=== PATIENT | male | born 1955 | race Caucasian/White ===

== ENCOUNTER 2022-11-21 12:07 | Emergency (ER) | payer MEDICARE, MEDICAID, SELFPAY ==
--- NOTE | ~2022-11-21 | CT_ITS ---
EXAMINATION: CT cervical spine wo con DATE: 11/21/2022 12:57 INDICATION: Fall. Head injury. Neck pain. TECHNIQUE: Computed tomography (CT) of the cervical spine was performed without intravenous contrast. Automated exposure control and iterative reconstruction technique were employed. Exam dose: 485.90 mGy-cm total exam DLP. COMPARISON: None FINDINGS: Mild reversal of cervical curvature which may be due to muscle spasm or positioning. C1 and C2 are normally aligned and the odontoid process is intact. No fracture or dislocation or lock ed facet. Moderate degenerative disc disease at C4-5 and to a greater extent C5-6-6 7.. IMPRESSION: Mild reversal of cervical curvature which may be due to muscle spasm or positioning No fracture or dislocation or locked facet Mild to moderate cervical spondylosis Reviewed, dictated and finalized at [facility]. Reviewed, dictated and finalized at [facility]. IMPRESSION: Mild reversal of cervical curvature which may be due to muscle spa sm or positioning No fracture or dislocation or locked facet Mild to moderate cervical spondylosis
--- NOTE | ~2022-11-21 | CT_ITS ---
EXAMINATION: CT brain wo con DATE: 11/21/2022 12:57 INDICATION: Head injury. Fall. Neck pain. TECHNIQUE: Computed tomography (CT) of the head was performed without intravenous contrast. The mA wa s adjusted according to patient size. Iterative reconstruction technique was employed. Exam dose: 60 5.33 mGy-cm total exam DLP. COMPARISON: None FINDINGS: There is bilateral carotid siphon internal carotid artery calcification. There is extensive diminished attenuation of the right cerebral hemisphere including right frontal, p arietal and temporal as well as occipital lobes, involving most of the right middle cerebral artery t erritory and some anterior cerebral artery territory. Findings are most consistent with subacute or o ld infarct. No intracranial mass lesion or hemorrhage, midline shift or mass effect. No subdural or epidural tracy ty. Persistent metopic suture. No skull fracture or bone destruction is detected. Included paranasal sinu ses and mastoid air cells are normally developed and aerated. IMPRESSION: Chronic extensive cerebrovascular infarct of right middle and anterior cerebral artery t erritories No acute intracranial finding or skull fracture Reviewed, dictated and finalized at [facility]. Reviewed, dictated and finalized at [facility]. IMPRESSION: Chronic extensive cerebrovascular infarct of right middle and ante rior cerebral artery territories No acute intracranial finding or skull fracture
[2022-11-21 12:09] VITALS: BP 145/78; PULSE 76; RESP 18; TEMP 36.6; O2SAT 97
--- NOTE | 2022-11-21 12:37 | ED.GENADULT ---
HPI - General Adult General Chief complaint: Fall Stated complaint: fall/ no injuries History of Present Illness HPI narrative: 67-year-old male presented to the emergency department for evaluation after having a fall from bed and head injury. Patient reports he did strike his right arm but denies any significant injury. Patient does have pain in his hips that he states is chronic and unchanged from baseline. Patient states he did strike his head but is unsure if he had any loss of consciousness. Related Data Allergies Allergy/AdvReac Type Severity Reaction Status Date / Time hydralazine AdvReac Vomiting Verified 11/21/22 12:37 lisinopril AdvReac Rash Verified 11/21/22 12:38 metformin AdvReac Diarrhea Verified 11/21/22 12:38 pioglitazone AdvReac Nausea Verified 11/21/22 12:39 simvastatin AdvReac Rash Verified 11/21/22 12:39 Review of Systems Review of Systems: All systems reviewed & are unremarkable except as noted in HPI and below Exam Narrative: APPEARANCE: Well appearing, no pain, no distress, well-nourished. HEAD: normocephalic, atraumatic. EYES: PERRLA/EOMI, conjunctivae clear. NOSE: Normal no drainage EARS:TMS clear with good light reflex. THROAT: Pharynx clear, no exudate. NECK: Supple. No adenopathy, no masses. RESPIRATORY: Airway patent, respirations nonlabored. Clear to auscultation bilaterally, no rales, rhonchi, wheezing. CARDIOVASCULAR: Regular rate and rhythm without murmurs rubs or gallops. ABDOMINAL: Soft, nontender, nondistended, normal bowel sounds MUSCULOSKELETAL: Moves all extremities. Strength/ROM intact, No edema, No calf tenderness. NEURO: Alert. Cranial nerves II through XII intact. Grossly intact SKIN: Warm, dry. Normal Color Course Course Emergency Course: 67-year-old male presented to ED from local [facility] for evaluation after having a ground-level fall. Patient had a negative head and cervical spine CT. Patient was complaining of chronic pain in his lower back and was provided medications for pain control. Patient was transferred back to the senior care facility. Patient was updated on results of his imaging. Vital Signs Vital signs: Vital Signs Temperature 97.9 F 11/21/22 12:09 Pulse Rate 76 11/21/22 12:09 Respiratory Rate 18 11/21/22 12:09 Blood Pressure 145/78 H 11/21/22 12:09 Pulse Oximetry 97 11/21/22 12:09 Oxygen Delivery Room Air 11/21/22 12:09 Temperature 97.9 F 11/21/22 12:09 Pulse Rate 76 11/21/22 12:09 Respiratory Rate 18 11/21/22 12:09 Blood Pressure 145/78 H 11/21/22 12:09 Pulse Oximetry 97 11/21/22 12:09 Oxygen Delivery Room Air 11/21/22 12:09 Medical Decision Making Differential Diagnosis Differential Diagnosis: Intracranial injury, cervical spine fracture Vital Signs Vital Signs: Vital Signs Temperature 97.9 F 11/21/22 12:09 Pulse Rate 76 11/21/22 12:09 Respiratory Rate 18 11/21/22 12:09 Blood Pressure 145/78 H 11/21/22 12:09 Pulse Oximetry 97 11/21/22 12:09 Oxygen Delivery Room Air 11/21/22 12:09 Temperature 97.9 F 11/21/22 12:09 Pulse Rate 76 11/21/22 12:09 Respiratory Rate 18 11/21/22 12:09 Blood Pressure 145/78 H 11/21/22 12:09 Pulse Oximetry 97 11/21/22 12:09 Oxygen Delivery Room Air 11/21/22 12:09 Imaging Data Radiologist's impression: Impressions Head CT 11/21/22 13:27 IMPRESSION: 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
[2022-11-21] MEDS: HYDROcodone/acetaminophen (*CRX) 5-325 MG TABLET 1 TAB PO (12:46)
--- NOTE | 2022-11-21 14:49 | PC.NURSE ---
Report called to [facility] spoke with KEVIN.
== END 2022-11-21 15:05 ==
LOC: ANHED 14:46
PROVIDERS: Emergency Provider Emergency Medicine
DX: S09.90XA Unspecified injury of head, initial encounter (principal); M54.9 Dorsalgia, unspecified; G89.29 Other chronic pain; W06.XXXA Fall from bed, initial encounter
CPT/HCPCS: 70450; 72125; 99284; A9270

== ENCOUNTER 2023-11-07 10:37 | Inpatient (IN) | payer MEDICARE, OTHER, MEDICAID, SELFPAY ==
[2023-11-07] VITALS (34 sets, daily range): BP systolic 136–210; BP diastolic 51–104; PULSE 65–92; RESP 16–29; TEMP 36.3–36.4; O2SAT 90–100; BMI 35.2
--- NOTE | ~2023-11-07 | CT_ITS ---
EXAMINATION: CT abdomen pelvis w con DATE: 11/07/2023 11:54 INDICATION: Abdominal pain and diarrhea TECHNIQUE: Computed tomography (CT) of the abdomen and pelvis was performed with 100 mL Omnipaque-350 intravenous contrast. Automated exposure control and iterative reconstruction technique were employe d. The dose-length product was 1412.07 mGy-cm. COMPARISON: None FINDINGS: Mild elevation the left hemidiaphragm with associated mild left basilar atelectasis. Heart size is no rmal. Atherosclerotic coronary artery calcifications. No pericardial or pleural effusion. A few scatt ered hepatic and splenic calcific lesions consistent with old granulomatous disease. Gallbladder is d istended but without evident wall thickening or pericholecystic inflammatory stranding to more specif ically suggest acute cholecystitis. Pancreas and bilateral adrenal glands are normal. Bilateral nonob structing nephrolithiasis measuring 4 to 5 mm in the right kidney and with larger 8 mm stone at a low er pole calyx of the left kidney. There is severe cortical atrophy at the anterior aspect of the lowe r pole of the right kidney. No ureteral stones or hydronephrosis. Bladder is normal. Postoperative ch balaji of a subtotal proximal colectomy with ileocolic anastomosis in the central abdomen. There is a 3 60 degree turn of the small bowel around its mesentery immediately proximal to the anastomosis. There is dilation of the gas and fluid-filled small bowel proximal to the anastomosis which measures up to 5.5 cm in maximal diameter consistent with at least partial obstruction. There is a large amount of stool in the remaining distal sigmoid colon and rectum. Small amount of retroperitoneal fluid in the presacral space and mild stranding in the perirectal fat suggestive of stercoral colitis. Small amoun t of ascites in the right paracolic gutter. No abscess or free intraperitoneal gas. No pathologically enlarged abdominal or pelvic lymphadenopathy. There is calcified atherosclerosis of the aorta and ma ny of the other arteries. Mild to moderate lower thoracic spondylosis with chronic mild compression f ractures at T10 and T11. IMPRESSION: 1. Small bowel obstruction which appears to result from a 360 degree volvulus of the small bowel at t he proximal margin of an ileocolic anastomosis post prior subtotal proximal colectomy. 2. Prominent stool in the more distal colon with some surrounding inflammatory stranding which can be seen with stercoral colitis. 3. Dilation of the otherwise normal-appearing gallbladder without evident wall thickening or perichol ecystic inflammatory stranding to suggest acute cholecystitis. If there is clinical concern for acute cholecystitis could consider right upper quadrant ultrasound or HIDA scan for further evaluation. 4. Bilateral nonobstructing nephrolithiasis. Reviewed, dictated and finalized at [facility]. IMPRESSION: 1. Small bowel obstruction which appears to result from a 360 degree volvulus o f the small bowel at the proximal margin of an ileocolic anastomosis post prior subtotal proximal colectomy. 2. Prominent stool in the more distal colon with some surrounding inflammatory stranding which can be seen with stercoral colitis. 3. Dilation of the otherwise normal-appearing gallbladder without evident wall thickening or pericholecystic inflammatory stranding to suggest acute cholecyst itis. If there is clinical concern for acute cholecystitis could consider right upper quadrant ultrasound or HIDA scan for further evaluation. 4. Bilateral nonobstructing nephrolithiasis.
--- NOTE | ~2023-11-07 | XR_ITS ---
EXAMINATION: XR sm bowel follow through DATE: 11/08/2023 14:24 INDICATION: Small bowel obstruction. TECHNIQUE: Oral contrast was administered, and a time course of radiographs of the abdomen was obtain ed. Fluoroscopy of the small bowel was not performed. Fluoroscopy exposure time was 0 minutes. The to duncan number of images was 10. COMPARISON: CT abdomen and pelvis 11/07/2023 FINDINGS: The nasogastric tube tip is in the stomach. There are multiple dilated loops of small bowel. There is contrast in the rectum at 1 hour. IMPRESSION: 1. Dilated small bowel, consistent with partial obstruction. Reviewed, dictated and finalized at [facility].
--- NOTE | ~2023-11-07 | XR_ITS ---
EXAMINATION: XR abdomen gastric tube insert DATE: 11/07/2023 14:11 INDICATION: Nasogastric tube placement. TECHNIQUE: An upright view of the abdomen was obtained. COMPARISON: CT abdomen and pelvis 11/07/2023 FINDINGS: The lower abdomen is excluded. There are multiple dilated loops of small bowel. The nasogas tric tube tip is in the stomach. IMPRESSION: 1. Nasogastric tube tip in the stomach. 2. Small bowel obstruction. Reviewed, dictated and finalized at [facility].
--- NOTE | 2023-11-07 10:44 | ED.GENADULT ---
HPI - General Adult General Chief complaint: Nausea/Vomiting/Diarrhea Stated complaint: N/V/D History of Present Illness HPI narrative: 68-year-old male presents to the emergency department from local longterm for evaluation for persistent nausea vomiting and diarrhea. Patient does have prior history of 4 strokes and is at his normal neuro baseline. alf staff stated that there is a [place] virus outbreak at their facility. Patient does complain of nausea vomiting diarrhea but denies any associated abdominal pain. Related Data Allergies Allergy/AdvReac Type Severity Reaction Status Date / Time hydralazine AdvReac Vomiting Verified 11/21/22 12:37 lisinopril AdvReac Rash Verified 11/21/22 12:38 metformin AdvReac Diarrhea Verified 11/21/22 12:38 pioglitazone AdvReac Nausea Verified 11/21/22 12:39 simvastatin AdvReac Rash Verified 11/21/22 12:39 Review of Systems Review of Systems: All systems reviewed & are unremarkable except as noted in HPI and below PMFSH Past Medical History Medical History (Updated 11/07/23 @ 18:21 by Clarence Kidd MD) Benign prostatic hyperplasia Cerebrovascular accident Chronic obstructive pulmonary disease Coronary artery disease Hypertension Obstructive sleep apnea Intolerant of CPAP Tobacco abuse Type 2 diabetes mellitus Surgical History Surgical History (Updated 11/07/23 @ 17:24 by Sofi Rodríguez PA-C) History of cardiac catheterization History of coronary artery stent placement History of partial colectomy Social History Social History (Updated 11/07/23 @ 14:58 by Sofi Rodríguez PA-C) Social History: Surrogate medical decision maker: Clarita Hobbs, mother. Code status: Full code. Exam Narrative: APPEARANCE: Well appearing, no pain, no distress, well-nourished. HEAD: normocephalic, atraumatic. EYES: PERRLA/EOMI, conjunctivae clear. NOSE: Normal no drainage EARS:TMS clear with good light reflex. THROAT: Pharynx clear, no exudate. NECK: Supple. No adenopathy, no masses. RESPIRATORY: Airway patent, respirations nonlabored. Clear to auscultation bilaterally, no rales, rhonchi, wheezing. CARDIOVASCULAR: Regular rate and rhythm without murmurs rubs or gallops. ABDOMINAL: Soft, nontender, nondistended, normal bowel sounds MUSCULOSKELETAL: Moves all extremities. Strength/ROM intact, No edema, No calf tenderness. NEURO: Alert. Cranial nerves II through XII intact. Grossly intact SKIN: Warm, dry. Normal Color Course Course Emergency Course: Patient was admitted with surgery consult Vital Signs Vital signs: Vital Signs Temperature 97.6 F 11/07/23 10:40 Pulse Rate 70 11/07/23 10:40 Respiratory Rate 23 H 11/07/23 10:40 Blood Pressure 210/104 H 11/07/23 10:40 Pulse Oximetry 94 11/07/23 10:40 Oxygen Delivery Room Air 11/07/23 10:40 Temperature 97.6 F 11/07/23 10:40 Pulse Rate 70 11/07/23 15:47 Respiratory Rate 20 11/07/23 15:47 Blood Pressure 157/76 H 11/07/23 15:47 Pulse Oximetry 93 11/07/23 15:47 Oxygen Delivery Room Air 11/07/23 10:40 Medical Decision Making MDM Narrative Medical decision making narrative: 68-year-old male present to the emergency department for evaluation for lower abdominal pain. Patient's CT scan was concerning for a small bowel obstruction with a volvulus of the small bowel. This was associated with site from my previous proximal cholecystectomy it was done about 2 years ago at the [facility]. I discussed the case with the [facility] for transfer to the [facility] and they felt the patient needed to be transferred to a tertiary care center. I discussed the case with the surgeon at the tertiary care center and he stated that our own surgeon here at [facility] should be able take care this this does not require to be transferred. I discussed the case with Dr. Bustos and he will see the patient as consult. Patient [facility] admitted by the hospitalist. Patient was updated on the results of raven
[2023-11-07 10:52] LABS: Basophils Percent Auto 0.1 % (0.2-1.2); Eosinophils Absolute Auto 0.2 K/mm3 (0-0.3); Eosinophils Percent Auto 2.2 % (0-4.4); Hematocrit 41.1 % (42.0-52.0); Hemoglobin 13.4 g/dL (14.0-18.0); Immature Granulocyte Absolute 0.03 K/mm3 (0.00-0.031); Immature Granulocyte Percent A 0.4 % (0-0.5); Lymphocytes Absolute Auto 0.39 K/mm3 (0.9-3.2); Mean Corpuscular HGB Conc 32.6 g/dl (32-36); Mean Corpuscular Hemoglobin 28.9 pg (26-34); Mean Corpuscular Volume 88.8 fl (80-100); Mean Platelet Volume 8.9 fl (7.4-10.4); Monocytes Absolute Auto 0.2 K/mm3 (0.1-0.6); Monocytes Percent Auto 3.1 % (2.6-8.5); Neutrophils Absolute Auto 6.9 K/mm3 (1.3-6.7); Neutrophils Percent Auto 89.2 % (45.5-73.1); Platelet Count Result 155 k/mm3 (150-375); Red Blood Count 4.63 M/mm3 (4.6-6.20); Red Cell Distribution Width 13.5 % (11.5-14.5); White Blood Count 7.8 K/mm3 (4.5-10.0)
[2023-11-07] MEDS: SODIUM CHLORIDE 0.9% IV 1,000 ML 999 ML IV CONT (10:52)
[2023-11-07] MEDS: ONDANSETRON INJ 4 MG/2 ML VIAL IV PUSH (10:52)
[2023-11-07 11:03] LABS: Alanine Aminotransferase 23 U/L (6-50); Albumin Level 4.5 g/dL (3.5-5.1); Alkaline Phosphatase 93 U/L (38-126); Anion Gap 7 mmol/L (4-12); Aspartate Amino Transferase 23 U/L (17-59); Blood Urea Nitrogen 32 mg/dL (9-20); Calcium 9.5 mg/dL (8.4-10.2); Carbon Dioxide 30 mmol/L (22-30); Chloride 103 mmol/L (98-107); Estimated CRCL calculation 62 ml/min; Estimated Glomerular Filt Rate 55; Glucose 162 mg/dL (65-110); Lipase 52 U/L (23-300); Potassium 4.6 mmol/L (3.4-5.0); Sodium 140 mmol/L (137-145)
[2023-11-07 11:54] LABS: Appearance Urine Clear (Clear); Bacteria Urine None Seen /hpf; Bilirubin Urine Negative (Negative); Blood Urine Non-Hemolyzed Trace (Negative); Color Urine Yellow (Yellow); Glucose Urine UA Negative (Negative); Ketones Urine Negative (Negative); Leukocyte Esterase Ur 1+ LEU/UL (Negative); Need Manual Microscopic Reviewed; Nitrate Urine Positive (Negative); Non Pathogenic Casts 0-2; Protein Urine 1+ mg/dL (Negative); Specific Grav Ur 1.016 (1.001-1.035); Squamous Epithelial Cell Urine None Seen /hpf (Few)
[2023-11-07 12:00] LABS: Add Urine Microscopic? YES
--- NOTE | 2023-11-07 12:37 | ECG_ITS ---
Test Date: 2023-11-07 12:46:15 Measurements Intervals [place] Rate: 77 P: 33 NE: 184 QRS: -26 QRSD: 84 T: 95 QT: 353 QTc: 401 Interpretive Statements SINUS RHYTHM POSSIBLE ANTERIOR MYOCARDIAL INFARCTION , OF INDETERMINATE AGE [30 ms Q WAVE IN V3/V4, OR R < 0.2 mV IN V4] No previous ECG available for comparison Electronically Signed On 11-07-2023 16:18:51 CDT by Jasvir Queen M.D.
[2023-11-07 13:27] LABS: Influenza A QL RT-PCR Negative (Negative); Influenza B QL RT-PCR Negative (Negative); RSV RNA, RT-PCR Negative (Negative); SARS-CoV-2 RNA PCR Negative (Negative)
--- NOTE | 2023-11-07 14:54 | PM.IMHP ---
H&P: HPI History of Present Illness Date/Time: 11/07/23 16:00 Chief Complaint: Chest pressure, nausea, vomiting, diarrhea. Narrative: This is a 68-year-old male smoker with history of stroke, coronary artery disease with history of stents, type 2 diabetes mellitus, hypertension, chronic obstructive pulmonary disease, and benign prostatic hyperplasia who presented to the emergency department via EMS from [facility] for evaluation of chest pressure, nausea, vomiting, and diarrhea. The patient provides the following history. His nursing facility has had an outbreak of [place] virus and staff sent him in today for evaluation as he has been complaining of mild abdominal cramping, bloating, nausea, vomiting, and diarrhea. He has had several episodes of nonbloody and nonbilious emesis this morning but that has since resolved. He continues to have too numerous to count episodes of diarrhea. He also reports having an episode nonradiating, mid sternal chest pressure this morning associated with mild sweats. That has since resolved. He denies fever, orthopnea, current chest pain, pleuritic pain, palpitations, hematemesis, melena, and hematochezia. In the ED: He was afebrile on arrival. Initial blood pressure reading was 210/104 however that is likely erroneous as subsequent blood pressures have been ranging between the 130s to 160s systolic. Labs were significant for WBC count of 7.8, hemoglobin 13.4, BUN 32, lactic acid 1.0. Urine is positive for 1+ protein, nitrates, 1+ leukocyte esterase, 3 to 5 RBC, and 11 to 20 WBC. No bacteria were seen on microscopy. CT of the abdomen and pelvis showed small-bowel obstruction which appears resolved from a 360 degree volvulus of the small bowel at the proximal margin of an ileal colic anastomosis, prominent stool in the more distal colon with surrounding inflammatory stranding which can be seen with stercoral colitis, bilateral nonobstructing nephrolithiasis, and dilation of an otherwise normal-appearing gallbladder. Review of Systems Review of Systems: 12 systems were reviewed and are negative except for as per HPI. [facility] Past Medical History Medical History Benign prostatic hyperplasia Cerebrovascular accident Chronic obstructive pulmonary disease Coronary artery disease Hypertension Obstructive sleep apnea Intolerant of CPAP Tobacco abuse Type 2 diabetes mellitus Surgical History Surgical History History of cardiac catheterization History of coronary artery stent placement History of partial colectomy Family History Family History (Updated 11/07/23 @ 21:19 by Sofi Rodríguez PA-C) Other Family history non-contributory Social History Social History (Updated 11/07/23 @ 21:20 by Sofi Rodríguez PA-C) Social History: Surrogate medical decision maker: Clarita Hobbs, mother. Code status: Full code. Smoking status: Current every day smoker Alcohol intake: unknown Substance use: unknown Do You Feel Safe in your Home?: Yes Lack of Transportation: No Lack of Food: Never True Current Housing: I Have Housing Concerned About Future Housing: No Difficulty Paying Gas/Electric Bills: No Difficulty Paying for Meds: No Currently Unemployed: No Education: Decline to Answer Difficulty w/ Childcare or Family Care: No Additional living arrangements comments: Resident at [facility]. 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 Spiritual care concerns: No Meds Home Medications and Allergies Home Medications Medication Instructions Recorded Confirmed Type Lactobacillus acidophilus 2,000 mmu cells PO BID 11/07/23 11/07/23 History acetaminophen 325 mg tablet 650 mg PO Q8H PRN Pain, Mild 11/07/23 11/07/23 History albuterol sulfate 90 mcg/actuation 2 puff inhalation Q4H PRN Wheezing
[2023-11-07] MEDS: metroNIDAZOLE 500 MG/ISO 100ML 500 MG/100 ML BAG 100 MG IVPB (15:08)
--- NOTE | 2023-11-07 15:26 | PC.NURSE ---
Pt had large BM- diarrhea.
--- NOTE | 2023-11-07 16:15 | ADMGEN ---
This patient, Brent Higginbotham, was admitted to Medical Room 347-. Patient/family oriented to hospital policies and general routines including ID bracelet, bed and alarms, visiting hours, pain management, procedures, bathroom and other care routines, personal items, smoking policy, room service/diet, and visiting hours. Information on how to activate the Rapid Response Team has been discussed. Patient/Family are encouraged to report perceived risks to care and to ask questions if they do not understand what they are told or what they should do.
--- NOTE | 2023-11-07 17:22 | ECG_ITS ---
Test Date: 2023-11-07 17:34:56 Measurements Intervals [place] Rate: 67 P: 7 ID: 194 QRS: -23 QRSD: 98 T: 110 QT: 363 QTc: 384 Interpretive Statements SINUS RHYTHM POSSIBLE ANTERIOR MYOCARDIAL INFARCTION , OF INDETERMINATE AGE ST-T WAVE ABNORMALITY IN HIGH LATERAL LEADS- CONSIDER ISCHEMIA BASELINE ARTIFACT- I, II, III, AVR, AVL, AVF ABNORMAL ECG Compared to ECG 11/07/2023 12:46:15 No significant changes Electronically Signed On 11-08-2023 06:01:51 CDT by Christofer Montiel D.O.
[2023-11-07] MEDS: SODIUM CHLORIDE 0.9% IV 1,000 ML 125 ML IV CONT (18:01)
[2023-11-07 18:50] LABS: Troponin I 0.017 ng/mL (0.000-0.034)
[2023-11-07 21:35] LABS: Troponin I 0.019 ng/mL (0.000-0.034)
[2023-11-07] MEDS: PIPERACILLN/TAZ 3.375GM/NS50ML 3.375 GM/50 ML BAG IVPB (21:57)
[2023-11-07 22:36] LABS: Hemoglobin A1C 6.5 % (<5.7)
[2023-11-07 23:31] LABS: Glucose Point of Care 117 mg/dl (65-105)
[2023-11-08] VITALS (10 sets, daily range): BP systolic 147–165; BP diastolic 62–74; PULSE 55–62; RESP 16–20; TEMP 36.6–36.8; O2SAT 86–94
--- NOTE | 2023-11-08 | ECHO_ITS ---
Patient Info Name: Brent Higginbotham Age: 68 years : 1955 Gender: Male Ht: 70 in Wt: 245 lbs BSA: 2.38 m2 HR: 62 bpm BP: 147 / 51 mmHg Technical Quality: Fair Exam Date: 11/08/2023 11:01 AM Exam Location: Echo Lab Patient Status: Inpatient Admit Date: 11/07/2023 Staff Ordering Physician: Sfoi Rodríguez PA-C Fox Raiser: Savannah Melissa RDCS Attending Provider: Tiffanie Green APRN Referring Physician: Anne LEONARD; Exam Type: CA echo dop color flow w con Study Info Indications - Chest pressure I25.110 - Atherosclerotic heart disease of [place] coronary artery with unstable angina pectoris Complete two-dimensional, color flow and Doppler transthoracic echocardiogram is performed with contrast to opacify the left ventricle and to improve the deliniation of the left ventricle endocardial borders. Contrast/Agitated Saline Contrast/Ag. Saline: Definity Amount: 3.00 ml IV Access Condition: patent with no signs of infiltration Summary 1. Definity contrast administered improved wall motion interpretation. 2. Left ventricular chamber dimension is normal. 3. Left ventricular systolic function is normal, estimated at 60-65%. 4. There is mild concentric increased left ventricular wall thickness. 5. The left ventricular diastolic function is grade I diastolic dysfunction. 6. E/e' 7 is not elevated. Left Ventricle E/e' 7 is not elevated. Definity contrast administered improved wall motion interpretation. Left ventricular chamber dimension is normal. Left ventricular systolic function is normal, estimated at 60-65%. There is mild concentric increased left ventricular wall thickness. The left ventricular diastolic function is grade I diastolic dysfunction. Right Ventricle Right ventricular systolic function is normal and with normal TAPSE 2.3 cm. Right ventricular chamber dimension is normal. Left Atria Left atrial chamber dimension is normal. Right Atria Right atrial chamber dimension is normal. Aortic Valve The aortic valve is trileaflet. There is no aortic valve stenosis. There is no aortic valve regurgitation. Pulmonic Valve There is no pulmonic regurgitation. Mitral Valve There is no mitral valve stenosis. There is no mitral valve regurgitation. Tricuspid Valve There is no tricuspid valve regurgitation. Pericardium/Pleural There is no pericardial effusion. Inferior Vena Cava Normal inferior vena cava with >50% collapse upon inspiration consistent with normal right atrial pressure, 5 mmHg. Aorta The aortic root size at the sinus of Valsalva is normal. Left Ventricular Outflow Tract Name Value Normal LVOT 2D LVOT Diameter 2.13 cm LVOT Doppler LVOT Peak Gradient 4 mmHg LVOT Mean Gradient 2 mmHg LVOT VTI 19.36 cm LVOT VTI/AV VTI Ratio 0.78 LVOT Stroke Volume 69.26 ml LVOT CO 3.51 l/min LVOT CI 1.47 L/min/m2 Pulmonic Valve Name
[2023-11-08 03:06] LABS: Toxigenic C. Diff NEGATIVE (NEGATIVE)
[2023-11-08] MEDS: PIPERACILLN/TAZ 3.375GM/NS50ML 3.375 GM/50 ML BAG IVPB ×4 (03:19→21:06)
[2023-11-08] MEDS: SODIUM CHLORIDE 0.9% IV 1,000 ML 125 ML IV CONT (04:17)
[2023-11-08 05:24] LABS: Hemoglobin 12.3 g/dL (14.0-18.0); Mean Corpuscular HGB Conc 32.4 g/dl (32-36); Mean Corpuscular Volume 89.6 fl (80-100); Mean Platelet Volume 8.7 fl (7.4-10.4); Platelet Count Result 140 k/mm3 (150-375); Red Blood Count 4.24 M/mm3 (4.6-6.20); Red Cell Distribution Width 13.7 % (11.5-14.5); White Blood Count 5.6 K/mm3 (4.5-10.0)
[2023-11-08 05:39] LABS: Anion Gap 6 mmol/L (4-12); Blood Urea Nitrogen 31 mg/dL (9-20); Calcium 9.2 mg/dL (8.4-10.2); Carbon Dioxide 35 mmol/L (22-30); Chloride 102 mmol/L (98-107); Estimated CRCL calculation 54 ml/min; Estimated Glomerular Filt Rate 47; Glucose 124 mg/dL (65-110); Magnesium 1.6 mg/dL (1.6-2.3); Potassium 4.3 mmol/L (3.4-5.0); Sodium 143 mmol/L (137-145)
[2023-11-08 06:20] LABS: Glucose Point of Care 118 mg/dl (65-105)
[2023-11-08] MEDS: FLUTICASONE/SALMETEROL 115-21 MCG INHALER 1 PUFF 2 PUFF INHALATION ×2 (07:13→20:10)
[2023-11-08] MEDS: UMECLIDINIUM BROMIDE 62.5 MCG ELLIPTA 1 PUFF INHALATION (07:13)
[2023-11-08] MEDS: BRIMONIDINE TARTRATE 0.15% 5 ML OPHTH SOLN 1 DROP EACH EYE ×3 (08:52→19:28)
[2023-11-08] MEDS: DORZOLAMIDE HCL 2% OPHTH DROPS 1 DROP EACH EYE ×3 (08:52→19:28)
--- NOTE | 2023-11-08 11:31 | PM.CNGS ---
Assessment and Plan Assessment and plan (1) SBO (small bowel obstruction): Code(s): K56.609 - Unspecified intestinal obstruction, unspecified as to partial versus complete obstruction Status: Acute Assessment and Plan: CT suggests a small bowel obstruction with a transition point at the ileocolic anastomosis where it appears the small bowel is twisted. He has been having extensive diarrhea per the staff that has slowed down this morning. He is still having high NG output. He denies any abdominal pain and his abdominal exam is fairly benign with only mild left lower quadrant tenderness, but no diffuse peritoneal signs. His WBC count and lactic acid are normal. We would recommend to continue conservative management at this time with NG tube decompression, bowel rest, and IV fluids for now. Will order a water-soluble small bowel follow through to further evaluate. (2) Stercoral colitis: Code(s): K52.89 - Other specified noninfective gastroenteritis and colitis Status: Acute Assessment and Plan: CT suggests stercoral colitis. Patient is having diarrhea and stool studies have been sent. (3) Abnormal urinalysis: Code(s): R82.90 - Unspecified abnormal findings in urine Status: Acute Assessment and Plan: UA abnormal. Patient denies any urinary complaints. Urine culture pending. Currently on IV Zosyn. (4) Chest pressure: Code(s): R07.89 - Other chest pain Status: Acute Assessment and Plan: Echocardiogram ordered for today. (5) Type 2 diabetes mellitus: Code(s): E11.9 - Type 2 diabetes mellitus without complications Status: Acute (6) Obstructive sleep apnea: Code(s): G47.33 - Obstructive sleep apnea (adult) (pediatric) Status: Acute (7) Chronic obstructive pulmonary disease: Code(s): J44.9 - Chronic obstructive pulmonary disease, unspecified Status: Acute (8) Tobacco abuse: Code(s): Z72.0 - Tobacco use Status: Acute (9) Coronary artery disease: Code(s): I25.10 - Atherosclerotic heart disease of [place] coronary artery without angina pectoris Status: Acute Plan I have discussed the patient's case and plan of care with Dr. Bustos. Thank you for allowing us to see the patient in consultation and we will continue to follow along with you. History of Present Illness Consult details Consult date: 11/08/23 Reason for consult: other (Small bowel obstruction) Requesting physician: Clarence Kidd MD Narrative: This is a 68-year-old man with history of stroke, coronary artery disease with history of stents, type 2 diabetes mellitus, hypertension, chronic obstructive pulmonary disease, tobacco abuse, and benign prostatic hyperplasia who presented to the emergency department from [facility] for chest pressure, nausea, vomiting, and diarrhea. He reports an outbreak of Norovirus at the nursing facility and staff sent him in to be evaluated yesterday per the patient. He has been complaining of mild abdominal cramping, bloating, nausea, vomiting, and diarrhea. He denies blood in his stool or emesis. His diarrhea has been too numerous to count with multiple episodes in the ED as well. He also reports mid sternal chest pressure with associated sweats, which has since resolved. He is getting an echocardiogram this morning as well. Labs were significant for WBC count of 7.8, hemoglobin 13.4, BUN 32, lactic acid 1.0. Urine is positive for 1+ protein, nitrates, 1+ leukocyte esterase, 3 to 5 RBC, and 11 to [address] scan of the abdomen and pelvis showed small-bowel obstruction which appears to result from a 360 degree volvulus of the small bowel at the proximal margin of an ileocolic anastomosis, also seen is prominent stool in the more distal colon with surrounding inflammatory stranding which can be seen with stercoral colitis, bilateral nonobstructing nephrolithiasis, and dilation of an otherwise normal-appearing gall
[2023-11-08 12:04] LABS: Glucose Point of Care 129 mg/dl (65-105)
[2023-11-08] MEDS: PERFLUTREN LIPID MICROSPHERES 1.5 ML VIAL DILUTED TO 10 ML TOTAL VOLUME IV PUSH (12:14)
--- NOTE | 2023-11-08 12:14 | IVDEFINITY ---
Prior to administration of IV Definity the patient was educated on the risks and benefits of the imaging enhancing agent including potential adverse side effects. The patient verbalized understanding. Allergies were verified. No exclusion criteria were identified and at least one of the following inclusion criteria were met: 1) physician request, 2) patient technically difficult to image (per the [place] [employer] guidelines of two or more segments not discernable within the apical view), or 3) questionable left ventricular function. ?
--- NOTE | 2023-11-08 12:55 | PC.NURSE ---
Patient off unit for small bowel follow through WS routine
--- NOTE | 2023-11-08 13:25 | PM.IMPN ---
Progress Note: A&P Assessment and Plan (1) Small bowel volvulus: Code(s): K56.2 - Volvulus Status: Acute Assessment and Plan: SBO Volvulus Hx partial colectomy. CT showed a small bowel obstruction yesterday. Partial obstruction on small bowel follow through today. Surgery following.? Continue PPI IV. Has an NGT with large output per RN. ?Follow surgery recs --Continue fluids: D5NS@100/hr --Leave to intermittent suction overnight since symptomatic after 2 hours today. Reclamp at 4am and surgery to see in the AM (2) Urinary tract infection: Code(s): N39.0 - Urinary tract infection, site not specified Status: Acute Assessment and Plan: Infection vs colonization. Present on admission. UA postive nitrites 10-20 WBC's. On Zosyn for bowel obstruction --Continue abx for bowel obstruction, follow urine cultures (3) Stercoral colitis: Code(s): K52.89 - Other specified noninfective gastroenteritis and colitis Status: Acute Assessment and Plan: CT AP 11/06 showed bowel obstruction and stool in the more distal colon with some surrounding inflammatory stranding, concerning for stercoral colitis. On Zosyn. RN reports large liquid stool in the ER and soft unformed stool today. Small bowel follow through today showed contrast in the rectum in 1 hour, partial obstruction. Continues to have large NGT output today. Patient reports stools chronically loose/watery (but had a large amount of stool concerning for sterocolitis on CT on admission). Some concern could have leaking around stool. --Surgery following, follow up recommendations --Likely start miralax when taking PO --May need hypaque enema to verify resolution of sterocolitis (4) Coronary artery disease: Code(s): I25.10 - Atherosclerotic heart disease of [place] coronary artery without angina pectoris Status: Acute Assessment and Plan: also hx CVA. Off ASA, Statin 2/, off BB?? No echo available. Cath report not available, CAD noted 11/2022 in SNF records. Resume carvedilol and ASA in AM if able to tolerate clamping (5) Benign prostatic hyperplasia: Code(s): N40.0 - Benign prostatic hyperplasia without lower urinary tract symptoms Status: Acute Assessment and Plan: Taking tamsulosin outpatinet Off since NPO due to bowel obstruction. monitor output. May need to monitor PVR?s if new symptoms (6) Type 2 diabetes mellitus: Code(s): E11.9 - Type 2 diabetes mellitus without complications Status: Acute Assessment and Plan: Outpt Meds: Glipizide, Blood sugars controlled. SSI (7) Hypertension: Code(s): I10 - Essential (primary) hypertension Status: Acute Assessment and Plan: Reported reactions to hydralazine (vomiting), and lisinopril (rash). Off BB & tamsulosin. Monitor, prn.? Blood pressure more elevated in the ER, 200?s. overnight and today 147/51-165/75. Continue to follow. Resume home meds as able. --Carvedilol 3.125 BID --Tamsulosin for BPH (8) Dilated gallbladder: Code(s): K82.8 - Other specified diseases of gallbladder Status: Acute Assessment and Plan: check HFP in AM.? Question of acute gem on CT but no abdominal pain to RUQ on palpation. RUQ US vs hida if becomes symptomatic or liver abnormalities (9) Metabolic alkalosis: Code(s): E87.3 - Alkalosis Status: Acute Assessment and Plan: Likely due to GI losses vs chronic compensation in the setting of COPD. Intolerant of CPAP per notes Check VBG in AM, follow (10) Thrombocytopenia: Code(s): D69.6 - Thrombocytopenia, unspecified Status: Acute Assessment and Plan: mild, 144 Follow CBC (11) Chronic obstructive pulmonary disease: Code(s): J44.9 - Chronic obstructive pulmonary disease, unspecified Status: Acute Assessment and Plan: Not in exacerbation. Continue Spiriva/Symbicort, Albuterol prn (12) Elevated serum creatinine: Co
--- NOTE | 2023-11-08 15:15 | PC.NURSE ---
Patient back to room at 1515
[2023-11-08] MEDS: MAGNESIUM SULF 2 GM/WATER 50ML 2 GM/50 ML BAG IVPB (15:36)
[2023-11-08 17:25] LABS: Glucose Point of Care 131 mg/dl (65-105)
[2023-11-08] MEDS: SODIUM CHLORIDE 0.9% IV 1,000 ML 100 ML IV CONT (20:16)
[2023-11-08] MEDS: PANTOPRAZOLE SODIUM IV 40 MG VIAL IV PUSH (20:17)
[2023-11-08] MEDS: HEPARIN SODIUM 5,000 UNITS/ML VIAL 5000 UNITS SUB-Q (21:06)
[2023-11-08] MEDS: MAG HYDROX/AL HYDROX/SIMETH 30 ML UDC FEED TUBE (21:06)
[2023-11-08 23:13] LABS: Glucose Point of Care 123 mg/dl (65-105)
[2023-11-09] VITALS (14 sets, daily range): BP systolic 134–167; BP diastolic 54–88; PULSE 42–78; RESP 18–20; TEMP 36–36.6; O2SAT 93–97
[2023-11-09] MEDS: PIPERACILLN/TAZ 3.375GM/NS50ML 3.375 GM/50 ML BAG IVPB ×2 (04:14→10:05)
[2023-11-09] MEDS: SODIUM CHLORIDE 0.9% IV 1,000 ML 100 ML IV CONT (04:14)
[2023-11-09 05:25] LABS: Fractional Inspired Oxygen 32 %; HCO3 VBG 42.9 mEq/l (24.0-30.0)
[2023-11-09 05:28] LABS: Device NASAL CANNULA; PCO2 VBG 63.2 mmHg (42.0-48.0); PO2 VBG < 27.0 mmHg (35.0-45.0)
[2023-11-09] MEDS: HEPARIN SODIUM 5,000 UNITS/ML VIAL 5000 UNITS SUB-Q ×3 (05:43→22:18)
[2023-11-09] MEDS: MAG HYDROX/AL HYDROX/SIMETH 30 ML UDC FEED TUBE ×3 (05:43→22:18)
[2023-11-09 05:59] LABS: Basophils Percent Auto 0.2 % (0.2-1.2); Eosinophils Absolute Auto 0.1 K/mm3 (0-0.3); Eosinophils Percent Auto 1.9 % (0-4.4); Hematocrit 40.7 % (42.0-52.0); Hemoglobin 12.7 g/dL (14.0-18.0); Immature Granulocyte Absolute 0.02 K/mm3 (0.00-0.031); Immature Granulocyte Percent A 0.4 % (0-0.5); Lymphocytes Absolute Auto 1.07 K/mm3 (0.9-3.2); Lymphocytes Percent Auto 20.8 % (18.3-44.2); Mean Corpuscular HGB Conc 31.2 g/dl (32-36); Mean Corpuscular Hemoglobin 28.9 pg (26-34); Mean Corpuscular Volume 92.7 fl (80-100); Mean Platelet Volume 9.5 fl (7.4-10.4); Monocytes Absolute Auto 0.6 K/mm3 (0.1-0.6); Monocytes Percent Auto 12.2 % (2.6-8.5); Neutrophils Absolute Auto 3.3 K/mm3 (1.3-6.7); Neutrophils Percent Auto 64.5 % (45.5-73.1); Platelet Count Result 154 k/mm3 (150-375); Red Blood Count 4.39 M/mm3 (4.6-6.20); Red Cell Distribution Width 13.8 % (11.5-14.5); White Blood Count 5.2 K/mm3 (4.5-10.0)
[2023-11-09 06:02] LABS: Glucose Point of Care 122 mg/dl (65-105)
[2023-11-09 06:13] LABS: INR 1.1; Prothrombin Time 14.5 Seconds (11.1-14.7)
[2023-11-09 06:21] LABS: Blood Urea Nitrogen 38 mg/dL (9-20); Calcium 9.3 mg/dL (8.4-10.2); Carbon Dioxide > 40 mmol/L (22-30); Chloride 103 mmol/L (98-107); Estimated CRCL calculation 47 ml/min; Estimated Glomerular Filt Rate 40; Glucose 124 mg/dL (65-110); Magnesium 2.5 mg/dL (1.6-2.3); Phosphorus 3.6 mg/dL (2.5-4.5); Sodium 153 mmol/L (137-145)
[2023-11-09] MEDS: UMECLIDINIUM BROMIDE 62.5 MCG ELLIPTA 1 PUFF INHALATION (08:38)
[2023-11-09] MEDS: FLUTICASONE/SALMETEROL 115-21 MCG INHALER 1 PUFF 2 PUFF INHALATION ×2 (08:39→21:13)
[2023-11-09] MEDS: BRIMONIDINE TARTRATE 0.15% 5 ML OPHTH SOLN 1 DROP EACH EYE ×3 (09:44→16:38)
[2023-11-09] MEDS: DORZOLAMIDE HCL 2% OPHTH DROPS 1 DROP EACH EYE ×3 (09:45→16:38)
[2023-11-09] MEDS: PANTOPRAZOLE SODIUM IV 40 MG VIAL IV PUSH ×2 (09:45→22:17)
[2023-11-09] MEDS: ASPIRIN 81 MG CHEWABLE TABLET PO (09:47)
[2023-11-09] MEDS: TAMSULOSIN HCL 0.4 MG CAPSULE PO (09:47)
--- NOTE | 2023-11-09 11:00 | PC.NURSE ---
NG tube set back to low intermittent suction at 1030. Patient reports clamping of the tube well. (tube was clamped off starting at 0400)
[2023-11-09 12:15] LABS: Glucose Point of Care 123 mg/dl (65-105)
--- NOTE | 2023-11-09 13:18 | PM.PNGS ---
Progress Note: A&P Assessment and Plan (1) SBO (small bowel obstruction): Code(s): K56.609 - Unspecified intestinal obstruction, unspecified as to partial versus complete obstruction Status: Acute Assessment and Plan: CT suggests a small bowel obstruction with a transition point at the ileocolic anastomosis. He has been having diarrhea but also high NG output. Small bowel follow through yesterday suggested still a partial small bowel obstruction with normal transit time to the colon. He was unable to tolerate NG clamping yesterday. He seems to be clinically improving today and his NG output is less this morning. Will attempt clamping the NG tube again today and possible remove it later today or tomorrow if he is able to tolerate the clamping trial. Plan I have discussed the patient's case and plan of care with Dr. Bustos. Subjective Subjective Date/Time Seen: 11/09/23 13:18 Patient reports: no new complaints and diarrhea (continues to have liquid diarrhea per nursing) Interval history: Denies abdominal pain or nausea. He had nausea and distention when he returned to the floor after his small bowel follow through yesterday. He is feeling better today. Per nursing, he had 600 cc out of the NG almost immediately when put back to suction yesterday afternoon. He did not tolerate being clamped. His NG was to suction through the night and clamped again around 4am this morning. He tolerated this clamping trial and when put back to suction, he only had 100 cc out of the NG tube. Exam Const: General: comfortable and no acute distress GI: Inspection: non-distended and obesity GI Palp: Yes Soft to palpation, No Tenderness to palpation present (GI), No Guarding due to palpation present (GI) and No Rebound tenderness present Auscultation: normal bowel sounds Objective Data Vital Signs Vital Signs: Vital Signs - 24 hr 11/08/23 14:00 11/08/23 20:11 11/08/23 20:11 Temperature 98.3 F Pulse Rate 62 59 L Respiratory Rate 20 18 Blood Pressure 150/70 H Pulse Oximetry 93 86 L Oxygen Delivery Room Air Oxygen Flow Rate 11/08/23 20:57 11/08/23 20:00 11/08/23 20:00 Temperature 97.9 F Pulse Rate 55 L 55 L Respiratory Rate 16 Blood Pressure 147/62 H Pulse Oximetry 93 94 Oxygen Delivery Nasal Cannula Oxygen Flow Rate 3 11/08/23 20:41 11/09/23 00:00 11/09/23 04:00 Temperature Pulse Rate 50 L 46 L Respiratory Rate Blood Pressure Pulse Oximetry 93 Oxygen Delivery Nasal Cannula Oxygen Flow Rate 3 11/09/23 06:00 11/09/23 08:41 11/09/23 09:48 Temperature 96.8 F L Pulse Rate 52 L 49 L Respiratory Rate 20 Blood Pressure 160/88 H Pulse Oximetry 97 95 Oxygen Delivery Nasal Cannula Oxygen Flow Rate 3 11/09/23 09:45 Temperature Pulse Rate 49 L Respiratory Rate Blood Pressure Pulse Oximetry 94 Oxygen Delivery Nasal Cannula Oxygen Flow Rate 2 Intake/Output Intake/Output: Intake & Output 11/06/23 11/07/23 11/08/23 11/09/23 23:59 23:59 23:59 23:59 Intake Total 1200 2640 846.7 Output Total 4850 300 Balance 1200 -2210 546.7 Meds/Results Medications: Active Medications Generic Name Dose Route Start Last Admin Trade Name Freq PRN Reason Stop Dose Admin Al Hydrox/Mg Hydrox/Simethicone 30 ml 11/08/23 14:00 11/09/23 05:43 Mag Hydrox/Al Hydrox/Simeth 30 Ml Udc FEED TUBE 30 ml Q8HR BERNARDO Administration Albuterol 2 puff 11/08/23 17:20 Albuterol Sulfate (*Sp) Aerosol 1 Puff INHALATION Q6H PRN Wheezing Artificial Tears 1 drop 11/07/23 21:50 Artificial Tears Ophth Soln 15 Ml Bottle EACH EYE QID PRN Dry Eye(s) Aspirin 81 mg 11/09/23 08:00 11/09/23 09:47 Aspirin 81 Mg Chewable Tablet PO 81 mg DAILY@0800 BERNARDO Administration Brimonidine Tartrate 1 drop 11/08/23 09:00 11/09/23 09:44 Brimonidine Tartrate 0.15% 5 Ml Ophth Soln EACH EYE 1 drop TID BERNARDO Administration Carvedilol 3.125
--- NOTE | 2023-11-09 15:00 | P.PNIM_ITS ---
Progress Note: A&P Assessment and Plan (1) Small bowel volvulus: Code(s): K56.2 - Volvulus Status: Acute Assessment and Plan: 11/09/23: * CT showing small bowel obstruction * Partial obstruction on small-bowel follow-through yesterday * Patient has history of partial colectomy * General surgery following * Sodium level 153, will opt for free water now that he is on clear liquid diet * NG tube discontinued * Patient started on clear liquid diet (2) Urinary tract infection: Code(s): N39.0 - Urinary tract infection, site not specified Status: Acute Assessment and Plan: 11/09/23: * UA showing positive nitrates, 10-20 wbc's, 1+ urine protein, 1+ leukocyte 3 to urine RBC * Urine culture showing Serratia marcescens on final read * Switch standpoint to Rocephin 2 g, will exchange trouble shooter to oral once tolerating p.o. intake (3) Stercoral colitis: Code(s): K52.89 - Other specified noninfective gastroenteritis and colitis Status: Acute Assessment and Plan: 11/09/23: * CT of the abdomen and pelvis shown small-bowel obstruction in the distal colon with some surrounding inflammatory stranding concerning for sterile coral colitis * Small-bowel follow-through showing partial obstruction * NG tube discontinued * Patient started on clear liquid diet * Patient had bowel movements today which was reported as loose stools * General surgery following (4) Type 2 diabetes mellitus: Code(s): E11.9 - Type 2 diabetes mellitus without complications Status: Acute Assessment and Plan: 11/09/23: * Blood sugars ranging 122-124 * Last hemoglobin A1c was on 11/07/2023 and was 6.5 * A.c. HS Accu-Cheks * Low-dose sliding scale insulin ordered * Hypoglycemic protocol in place * Currently on D5W at 100ml/hr * Currently NPO (5) Hypertension: Code(s): I10 - Essential (primary) hypertension Status: Acute Assessment and Plan: 11/09/23: * Blood pressures ranging 147/62 to 167/55 * Patient on Coreg * Will start Norvasc 5 mg daily considering blood pressures are still elevated. * Continue to monitor blood pressures (6) Elevated serum creatinine: Code(s): R79.89 - Other specified abnormal findings of blood chemistry Status: Acute Assessment and Plan: 11/09/23: * Creatinine 1.7, patient appears dry * Starting clear liquid diet today * Continue to trend Time Spent With Patient Time with patient: 25 - 35 minutes Subjective Date/time seen: 11/09/23 15:00 Interval history: Interval history: Patient was found to have a partial small-bowel obstruction and a urinary tract infection. He was started on Zosyn which was changed over to Rocephin today. Urine culture showing serratia marcescens on final read. Stool culture negative for Campylobacter or E coli, Salmonella still pending. General surgery following. 11/09/23: Patient denies any fever, chills, nausea, vomiting, diarrhea, abdominal pain, chest pain. Patient endorses being thirsty and that his mouth is dry, he also reports shortness of breath and is currently on 3 L nasal cannula. Patient does not wear oxygen at home Labs today reveal a normal white blood cell count of 5.2, hemoglobin 12.7, sodium 153, creatinine 1.7 EGFR 40. Review of Systems Review of Systems: All systems reviewed & are unremarkable except as noted in HPI and below Constitutional: Constitutional: Reports as per HPI and Reports no additional constitutional complaints Eyes: Eyes: Reports as per HPI and Reports no additional eye comp
--- NOTE | 2023-11-09 15:00 | PM.IMPN ---
Progress Note: A&P Assessment and Plan (1) Small bowel volvulus: Code(s): K56.2 - Volvulus Status: Acute Assessment and Plan: 11/09/23: CT showing small bowel obstruction Partial obstruction on small-bowel follow-through yesterday Patient has history of partial colectomy General surgery following Sodium level 153, will opt for free water now that he is on clear liquid diet NG tube discontinued Patient started on clear liquid diet (2) Urinary tract infection: Code(s): N39.0 - Urinary tract infection, site not specified Status: Acute Assessment and Plan: 11/09/23: UA showing positive nitrates, 10-20 wbc's, 1+ urine protein, 1+ leukocyte 3 to urine RBC Urine culture showing Serratia marcescens on final read Switch standpoint to Rocephin 2 g, will plant changer to oral once tolerating p.o. intake (3) Stercoral colitis: Code(s): K52.89 - Other specified noninfective gastroenteritis and colitis Status: Acute Assessment and Plan: 11/09/23: CT of the abdomen and pelvis shown small-bowel obstruction in the distal colon with some surrounding inflammatory stranding concerning for sterile coral colitis Small-bowel follow-through showing partial obstruction NG tube discontinued Patient started on clear liquid diet Patient had bowel movements today which was reported as loose stools General surgery following (4) Type 2 diabetes mellitus: Code(s): E11.9 - Type 2 diabetes mellitus without complications Status: Acute Assessment and Plan: 11/09/23: Blood sugars ranging 122-124 Last hemoglobin A1c was on 11/07/2023 and was 6.5 A.c. HS Accu-Cheks Low-dose sliding scale insulin ordered Hypoglycemic protocol in place Currently on D5W at 100ml/hr Currently NPO (5) Hypertension: Code(s): I10 - Essential (primary) hypertension Status: Acute Assessment and Plan: 11/09/23: Blood pressures ranging 147/62 to 167/55 Patient on Coreg Will start Norvasc 5 mg daily considering blood pressures are still elevated. Continue to monitor blood pressures (6) Elevated serum creatinine: Code(s): R79.89 - Other specified abnormal findings of blood chemistry Status: Acute Assessment and Plan: 11/09/23: Creatinine 1.7, patient appears dry Starting clear liquid diet today Continue to trend Time Spent With Patient Time with patient: 25 - 35 minutes Subjective Date/time seen: 11/09/23 15:00 Interval history: Interval history: Patient was found to have a partial small-bowel obstruction and a urinary tract infection. He was started on Zosyn which was changed over to Rocephin today. Urine culture showing serratia marcescens on final read. Stool culture negative for Campylobacter or E coli, Salmonella still pending. General surgery following. 11/09/23: Patient denies any fever, chills, nausea, vomiting, diarrhea, abdominal pain, chest pain. Patient endorses being thirsty and that his mouth is dry, he also reports shortness of breath and is currently on 3 L nasal cannula. Patient does not wear oxygen at home Labs today reveal a normal white blood cell count of 5.2, hemoglobin 12.7, sodium 153, creatinine 1.7 EGFR 40. Review of Systems Review of Systems: All systems reviewed & are unremarkable except as noted in HPI and below Constitutional: Constitutional: Reports as per HPI and Reports no additional constitutional complaints Eyes: Eyes: Reports as per HPI and Reports no additional eye complaints ENT: Reports system reviewed and no additional complaints, except as documented and Reports as per HPI Cardiovascular: Cardiovascular: Reports as per HPI and Reports no additional cardiovascular complaints Respiratory: Respiratory: Reports as per HPI and Reports no additional respiratory complaints Gastrointestinal: Gastrointestinal: Reports as per HPI and Reports no additional gastrointestinal complaints Genitourinary: Genitourin
--- NOTE | 2023-11-09 15:45 | PC.NURSE ---
Per Dr Bustos, NG clamped at 1250 to be reevaluated later this afternoon. Per Gigi Gallegos, VIKAS, ok to remove NG tube if no nausea, vomiting or abdominal pain after 3-4 hours of being clamped. Patient is to continue on clear liquids. after NG tube removal.
[2023-11-09 16:23] LABS: Glucose Point of Care 113 mg/dl (65-105)
[2023-11-09] MEDS: cefTRIAXone 2 GM/NS 100 ML 2 GM/100 ML BAG IVPB (16:36)
[2023-11-09] MEDS: amLODIPine BESYLATE 5 MG TABLET PO (16:37)
[2023-11-09] MEDS: ACIDOPHILUS/BULGARICUS CHEWABLE TABLET 2 TABLET PO (16:37)
[2023-11-09] MEDS: ERGOCALCIFEROL 50,000 UNITS CAPSULE 50000 UNITS PO (16:38)
[2023-11-09] MEDS: GABAPENTIN 100 MG CAPSULE 200 MG PO (16:38)
[2023-11-09] MEDS: MORPHINE SULFATE (*CRX) 4 MG/ML INJ IV PUSH (18:38)
[2023-11-09] MEDS: ROSUVASTATIN 20 MG TABLET 40 MG PO (22:17)
[2023-11-09 22:30] LABS: Glucose Point of Care 138 mg/dl (65-105)
[2023-11-09] MEDS: MELATONIN 5 MG TABLET PO (23:34)
[2023-11-10] VITALS (11 sets, daily range): BP systolic 116–154; BP diastolic 60–95; PULSE 40–58; RESP 18; TEMP 36.3–37; O2SAT 94–98
[2023-11-10] MEDS: MAG HYDROX/AL HYDROX/SIMETH 30 ML UDC FEED TUBE ×2 (05:35→21:24)
[2023-11-10] MEDS: HEPARIN SODIUM 5,000 UNITS/ML VIAL 5000 UNITS SUB-Q ×3 (05:36→21:23)
[2023-11-10 06:01] LABS: Basophils Percent Auto 0.3 % (0.2-1.2); Eosinophils Absolute Auto 0.3 K/mm3 (0-0.3); Eosinophils Percent Auto 4.3 % (0-4.4); Hematocrit 37.3 % (42.0-52.0); Hemoglobin 11.5 g/dL (14.0-18.0); Immature Granulocyte Absolute 0.02 K/mm3 (0.00-0.031); Immature Granulocyte Percent A 0.3 % (0-0.5); Lymphocytes Absolute Auto 1.36 K/mm3 (0.9-3.2); Lymphocytes Percent Auto 20.9 % (18.3-44.2); Mean Corpuscular HGB Conc 30.8 g/dl (32-36); Mean Corpuscular Hemoglobin 28.5 pg (26-34); Mean Corpuscular Volume 92.3 fl (80-100); Monocytes Absolute Auto 0.6 K/mm3 (0.1-0.6); Monocytes Percent Auto 8.6 % (2.6-8.5); Neutrophils Absolute Auto 4.3 K/mm3 (1.3-6.7); Neutrophils Percent Auto 65.6 % (45.5-73.1); Platelet Count Result 146 k/mm3 (150-375); Red Blood Count 4.04 M/mm3 (4.6-6.20); Red Cell Distribution Width 13.5 % (11.5-14.5); White Blood Count 6.5 K/mm3 (4.5-10.0)
[2023-11-10 06:20] LABS: Alanine Aminotransferase 18 U/L (6-50); Albumin Level 3.9 g/dL (3.5-5.1); Alkaline Phosphatase 74 U/L (38-126); Anion Gap 5 mmol/L (4-12); Aspartate Amino Transferase 26 U/L (17-59); Bilirubin,Total 0.7 mg/dL (0.2-1.3); Blood Urea Nitrogen 31 mg/dL (9-20); Calcium 8.8 mg/dL (8.4-10.2); Carbon Dioxide 35 mmol/L (22-30); Chloride 102 mmol/L (98-107); Estimated CRCL calculation 58 ml/min; Estimated Glomerular Filt Rate 51; Glucose 105 mg/dL (65-110); Potassium 3.3 mmol/L (3.4-5.0); Sodium 142 mmol/L (137-145)
[2023-11-10] MEDS: UMECLIDINIUM BROMIDE 62.5 MCG ELLIPTA 1 PUFF INHALATION (07:31)
[2023-11-10] MEDS: FLUTICASONE/SALMETEROL 115-21 MCG INHALER 1 PUFF 2 PUFF INHALATION ×2 (07:32→20:00)
[2023-11-10 08:19] LABS: Glucose Point of Care 116 mg/dl (65-105)
[2023-11-10] MEDS: TAMSULOSIN HCL 0.4 MG CAPSULE PO (08:49)
[2023-11-10] MEDS: PANTOPRAZOLE SODIUM IV 40 MG VIAL IV PUSH ×2 (08:49→21:24)
[2023-11-10] MEDS: ACIDOPHILUS/BULGARICUS CHEWABLE TABLET 2 TABLET PO ×2 (08:50→17:01)
[2023-11-10] MEDS: GABAPENTIN 100 MG CAPSULE 200 MG PO ×3 (08:50→17:01)
[2023-11-10] MEDS: ESCITALOPRAM OXALATE 10 MG TABLET 20 MG PO (08:50)
[2023-11-10] MEDS: ASPIRIN 81 MG CHEWABLE TABLET PO (08:50)
[2023-11-10] MEDS: BRIMONIDINE TARTRATE 0.15% 5 ML OPHTH SOLN 1 DROP EACH EYE ×3 (08:52→17:02)
[2023-11-10] MEDS: DORZOLAMIDE HCL 2% OPHTH DROPS 1 DROP EACH EYE ×3 (08:52→17:02)
--- NOTE | 2023-11-10 10:39 | PM.PNGS ---
Progress Note: A&P Assessment and Plan (1) SBO (small bowel obstruction): Code(s): K56.609 - Unspecified intestinal obstruction, unspecified as to partial versus complete obstruction Status: Acute Assessment and Plan: Resolving with conservative treatment. NG tube removed yesterday after tolerating a clamping trial. He is now on clear liquids and tolerating this well. Will advance him to full liquids. Potassium is 3.3 today. Will replace his potassium with oral KCL and repeat labs again tomorrow. Plan I have discussed the patient's case and plan of care with Dr. Bustos. Subjective Subjective Date/Time Seen: 11/10/23 10:39 Patient reports: no new complaints, feels better, tolerating liquids well, flatus and bowel movement (two yesterday) Interval history: He is feeling better this morning. No abdominal pain, nausea, or vomiting. Exam Const: General: comfortable and no acute distress Orientation/consciousness: patient oriented x3 GI: Inspection: non-distended GI Palp: Yes Soft to palpation, No Tenderness to palpation present (GI), No Guarding due to palpation present (GI) and No Rebound tenderness present Percussion: Yes normal to percussion Auscultation: normal bowel sounds Objective Data Vital Signs Vital Signs: Vital Signs - 24 hr 11/09/23 14:00 11/09/23 12:00 11/09/23 16:00 Temperature 97.8 F Pulse Rate 78 50 L 42 L Respiratory Rate 20 Blood Pressure 167/55 H Pulse Oximetry 96 Oxygen Delivery Oxygen Flow Rate 11/09/23 19:45 11/09/23 21:16 11/09/23 22:17 Temperature 97 F L Pulse Rate 55 L 47 L Respiratory Rate 18 Blood Pressure 134/54 L Pulse Oximetry 95 93 Oxygen Delivery Nasal Cannula Oxygen Flow Rate 2 11/09/23 20:00 11/09/23 20:00 11/10/23 00:00 Temperature Pulse Rate 46 L 43 L Respiratory Rate Blood Pressure Pulse Oximetry 93 Oxygen Delivery Nasal Cannula Oxygen Flow Rate 2 11/10/23 04:00 11/10/23 05:59 11/10/23 07:30 Temperature 98.4 F Pulse Rate 50 L 48 L 58 L Respiratory Rate 18 18 Blood Pressure 118/60 Pulse Oximetry 97 94 Oxygen Delivery Nasal Cannula Oxygen Flow Rate 2 11/10/23 07:30 11/10/23 08:52 07/03/24 08:00 Temperature Pulse Rate 58 L 44 L 44 L Respiratory Rate 18 18 Blood Pressure Pulse Oximetry 94 Oxygen Delivery Nasal Cannula Oxygen Flow Rate 2 Intake/Output Intake/Output: Intake & Output 11/07/23 11/08/23 11/09/23 11/10/23 23:59 23:59 23:59 23:59 Intake Total 1200 2640 1946.7 490 Output Total 4850 300 Balance 1200 -2210 1646.7 490 Meds/Results Medications: Active Medications Generic Name Dose Route Start Last Admin Trade Name Freq PRN Reason Stop Dose Admin Al Hydrox/Mg Hydrox/Simethicone 30 ml 11/08/23 14:00 11/10/23 05:35 Mag Hydrox/Al Hydrox/Simeth 30 Ml Udc FEED TUBE 30 ml Q8HR BERNARDO Administration Albuterol 2 puff 11/08/23 17:20 Albuterol Sulfate (*Sp) Aerosol 1 Puff INHALATION Q6H PRN Wheezing Artificial Tears 1 drop 11/07/23 21:50 Artificial Tears Ophth Soln 15 Ml Bottle EACH EYE QID PRN Dry Eye(s) Aspirin 81 mg 11/09/23 08:00 11/10/23 08:50 Aspirin 81 Mg Chewable Tablet PO 81 mg DAILY@0800 BERNARDO Administration Brimonidine Tartrate 1 drop 11/08/23 09:00 11/10/23 08:52 Brimonidine Tartrate 0.15% 5 Ml Ophth Soln EACH EYE 1 drop TID BERNARDO Administration Carvedilol 3.125 mg 11/09/23 09:00 11/10/23 08:52 Carvedilol 3.125 Mg Tablet PO Not Given Q12HR BERNARDO Dextrose 12.5 gm 11/07/23 21:35 Dextrose 50% 25 Gm/50 Ml Syringe IV PUSH PRN PRN Hypoglycemia Protocol Dorzolamide HCl 1 drop 11/08/23 09:00 11/10/23 08:52 Dorzolamide Hcl 2% Ophth Drops EACH EYE 1 drop TID BERNARDO Administration Ergocalciferol 50,000 units 11/09/23 17:00 11/09/23 16:38 Ergocalciferol 50,000 Units Capsule PO 50,000 units WEEKLY BERNARDO Administration Escitalopram
--- NOTE | 2023-11-10 10:41 | P.PNIM_ITS ---
Progress Note: A&P Assessment and Plan (1) Small bowel volvulus: Code(s): K56.2 - Volvulus Status: Acute Assessment and Plan: 68-year-old male smoker with history of stroke, coronary artery disease with history of stents, type 2 diabetes mellitus, hypertension, chronic obstructive pulmonary disease, and benign prostatic hyperplasia who presented to the emergency department via EMS from [facility] for evaluation of chest pressure, nausea, vomiting, and diarrhea. Found to have a volvulus and stercoral colitis. Followed by surgery 11/09/23: * CT showing small bowel obstruction * Partial obstruction on small-bowel follow-through yesterday * Patient has history of partial colectomy * General surgery following * Sodium level 153, will opt for free water now that he is on clear liquid diet * NG tube discontinued * Patient started on clear liquid diet 11/10/23: * Diet advanced to full liquids * Exam stable, no distention or vomiting. (2) Urinary tract infection: Code(s): N39.0 - Urinary tract infection, site not specified Status: Acute Assessment and Plan: 11/09/23: * UA showing positive nitrates, 10-20 wbc's, 1+ urine protein, 1+ leukocyte 3 to urine RBC * Urine culture showing Serratia marcescens on final read * Switch standpoint to Rocephin 2 g, will acid changer to oral once tolerating p.o. intake 11/10/23 Antibiotics: Zosyn 11/06-11/08, Ceftiraxone 11/08-present. Denies dysuria * Urine culture showing Serratia marcescens on final read * Switch standpoint to Rocephin 2 g. Continue Ceftriaxone through tomorrow (3) Stercoral colitis: Code(s): K52.89 - Other specified noninfective gastroenteritis and colitis Status: Acute Assessment and Plan: Patient reports multiple loose stools chronically. Asked when he last had a forrmed BM but he didn't remember the last time, possibly months per patiemt 11/09/23: * CT of the abdomen and pelvis shown small-bowel obstruction in the distal colon with some surrounding inflammatory stranding concerning for stercoral colitis * Small-bowel follow-through showing partial obstruction * NG tube discontinued * Patient started on clear liquid diet * Patient had bowel movements today which was reported as loose stools * General surgery following 11/10/23: * Doing well with clear liquids overnight, No abdominal distention or nausea, no BM overnight . Start miralax (4) Type 2 diabetes mellitus: Code(s): E11.9 - Type 2 diabetes mellitus without complications Status: Acute Assessment and Plan: 11/09/23: * Blood sugars ranging 122-124 * Last hemoglobin A1c was on 11/07/2023 and was 6.5 * A.c. HS Accu-Cheks * Low-dose sliding scale insulin ordered * Hypoglycemic protocol in place * Currently on D5W at 100ml/hr * Currently NPO 11/09 * advanced to full liquids * Holding glipizide and continuing SSI until tolerating diet (5) Hypertension: Code(s): I10 - Essential (primary) hypertension Status: Acute Assessment and Plan: 11/09/23: * Blood pressures ranging 147/62 to 167/55 * Patient on Coreg * Will start Norvasc 5 mg daily considering blood pressures are still elevated. * Continue to monitor blood pressures 11/10/23: * Blood pressures improved, 118/60 this morning * Patient on Coreg 3.125 BID, hold this morning for bradycardia. Also on tamsulosin for BPH, continue * Hold norvasc this morning, likely restart if unable to restart carvedilol * Likely stress component to hype
--- NOTE | 2023-11-10 10:41 | PM.IMPN ---
Progress Note: A&P Assessment and Plan (1) Small bowel volvulus: Code(s): K56.2 - Volvulus Status: Acute Assessment and Plan: 68-year-old male smoker with history of stroke, coronary artery disease with history of stents, type 2 diabetes mellitus, hypertension, chronic obstructive pulmonary disease, and benign prostatic hyperplasia who presented to the emergency department via EMS from [facility] for evaluation of chest pressure, nausea, vomiting, and diarrhea. Found to have a volvulus and stercoral colitis. Followed by surgery 11/09/23: CT showing small bowel obstruction Partial obstruction on small-bowel follow-through yesterday Patient has history of partial colectomy General surgery following Sodium level 153, will opt for free water now that he is on clear liquid diet NG tube discontinued Patient started on clear liquid diet 11/10/23: Diet advanced to full liquids Exam stable, no distention or vomiting. (2) Urinary tract infection: Code(s): N39.0 - Urinary tract infection, site not specified Status: Acute Assessment and Plan: 11/09/23: UA showing positive nitrates, 10-20 wbc's, 1+ urine protein, 1+ leukocyte 3 to urine RBC Urine culture showing Serratia marcescens on final read Switch standpoint to Rocephin 2 g, will international exchange coordinator to oral once tolerating p.o. intake 11/10/23 Antibiotics: Zosyn 11/06-11/08, Ceftiraxone 11/08-present. Denies dysuria Urine culture showing Serratia marcescens on final read Switch standpoint to Rocephin 2 g. Continue Ceftriaxone through tomorrow (3) Stercoral colitis: Code(s): K52.89 - Other specified noninfective gastroenteritis and colitis Status: Acute Assessment and Plan: Patient reports multiple loose stools chronically. Asked when he last had a forrmed BM but he didn't remember the last time, possibly months per patiemt 11/09/23: CT of the abdomen and pelvis shown small-bowel obstruction in the distal colon with some surrounding inflammatory stranding concerning for stercoral colitis Small-bowel follow-through showing partial obstruction NG tube discontinued Patient started on clear liquid diet Patient had bowel movements today which was reported as loose stools General surgery following 11/10/23: Doing well with clear liquids overnight, No abdominal distention or nausea, no BM overnight . Start miralax (4) Type 2 diabetes mellitus: Code(s): E11.9 - Type 2 diabetes mellitus without complications Status: Acute Assessment and Plan: 11/09/23: Blood sugars ranging 122-124 Last hemoglobin A1c was on 11/07/2023 and was 6.5 A.c. HS Accu-Cheks Low-dose sliding scale insulin ordered Hypoglycemic protocol in place Currently on D5W at 100ml/hr Currently NPO 11/09 advanced to full liquids Holding glipizide and continuing SSI until tolerating diet (5) Hypertension: Code(s): I10 - Essential (primary) hypertension Status: Acute Assessment and Plan: 11/09/23: Blood pressures ranging 147/62 to 167/55 Patient on Coreg Will start Norvasc 5 mg daily considering blood pressures are still elevated. Continue to monitor blood pressures 11/10/23: Blood pressures improved, 118/60 this morning Patient on Coreg 3.125 BID, hold this morning for bradycardia. Also on tamsulosin for BPH, continue Hold norvasc this morning, likely restart if unable to restart carvedilol Likely stress component to hypertension given NG tube and bowel obstruction Continue to monitor blood pressures (6) Elevated serum creatinine: Code(s): R79.89 - Other specified abnormal findings of blood chemistry Status: Acute Assessment and Plan: 11/09/23: Creatinine 1.7, patient appears dry Starting clear liquid diet today Continue to trend 11/10/23: Repeat labs improved, 1.4, follow creatinine Plan Tolerating clear liquids, advanced to full liq
[2023-11-10 12:03] LABS: Glucose Point of Care 188 mg/dl (65-105)
[2023-11-10] MEDS: POTASSIUM CHLORIDE 20 MEQ PACKET (FOR LIQUID) 40 MEQ PO (12:57)
[2023-11-10] MEDS: cefTRIAXone 2 GM/NS 100 ML 2 GM/100 ML BAG IVPB (17:00)
[2023-11-10 17:06] LABS: Glucose Point of Care 143 mg/dl (65-105)
[2023-11-10] MEDS: ROSUVASTATIN 20 MG TABLET 40 MG PO (21:23)
[2023-11-10 23:28] LABS: Glucose Point of Care 162 mg/dl (65-105)
[2023-11-11] VITALS (9 sets, daily range): BP systolic 118–151; BP diastolic 51–71; PULSE 42–75; RESP 16–18; TEMP 36.1–36.6; O2SAT 94–95
[2023-11-11] MEDS: HEPARIN SODIUM 5,000 UNITS/ML VIAL 5000 UNITS SUB-Q ×3 (05:27→20:35)
[2023-11-11] MEDS: MAG HYDROX/AL HYDROX/SIMETH 30 ML UDC FEED TUBE ×3 (05:27→23:02)
[2023-11-11 05:42] LABS: Basophils Percent Auto 0.5 % (0.2-1.2); Eosinophils Absolute Auto 0.3 K/mm3 (0-0.3); Eosinophils Percent Auto 5.2 % (0-4.4); Hematocrit 36.5 % (42.0-52.0); Hemoglobin 11.5 g/dL (14.0-18.0); Immature Granulocyte Absolute 0.02 K/mm3 (0.00-0.031); Immature Granulocyte Percent A 0.4 % (0-0.5); Lymphocytes Absolute Auto 1.24 K/mm3 (0.9-3.2); Lymphocytes Percent Auto 22.1 % (18.3-44.2); Mean Corpuscular HGB Conc 31.5 g/dl (32-36); Mean Corpuscular Hemoglobin 28.7 pg (26-34); Mean Platelet Volume 9.1 fl (7.4-10.4); Monocytes Absolute Auto 0.4 K/mm3 (0.1-0.6); Monocytes Percent Auto 7.7 % (2.6-8.5); Neutrophils Absolute Auto 3.6 K/mm3 (1.3-6.7); Neutrophils Percent Auto 64.1 % (45.5-73.1); Platelet Count Result 147 k/mm3 (150-375); Red Blood Count 4.01 M/mm3 (4.6-6.20); Red Cell Distribution Width 13.2 % (11.5-14.5); White Blood Count 5.6 K/mm3 (4.5-10.0)
[2023-11-11 05:52] LABS: Alanine Aminotransferase 16 U/L (6-50); Albumin Level 3.9 g/dL (3.5-5.1); Alkaline Phosphatase 76 U/L (38-126); Anion Gap 6 mmol/L (4-12); Aspartate Amino Transferase 25 U/L (17-59); Bilirubin,Total 0.6 mg/dL (0.2-1.3); Blood Urea Nitrogen 23 mg/dL (9-20); Carbon Dioxide 32 mmol/L (22-30); Chloride 102 mmol/L (98-107); Estimated CRCL calculation 62 ml/min; Estimated Glomerular Filt Rate 55; Glucose 119 mg/dL (65-110); Potassium 3.3 mmol/L (3.4-5.0); Sodium 140 mmol/L (137-145)
[2023-11-11] MEDS: FLUTICASONE/SALMETEROL 115-21 MCG INHALER 1 PUFF 2 PUFF INHALATION ×2 (07:07→20:46)
[2023-11-11] MEDS: UMECLIDINIUM BROMIDE 62.5 MCG ELLIPTA 1 PUFF INHALATION (07:08)
--- NOTE | 2023-11-11 07:18 | ECG_ITS ---
Test Date: 2023-11-11 11:07:41 Measurements Intervals [place] Rate: 48 P: 0 [place]: 0 QRS: -20 QRSD: 97 T: 73 QT: 440 QTc: 393 Interpretive Statements SINUS BRADYCARDIA WITH FIRST DEGREE AV BLOCK VENTRICULAR PREMATURE COMPLEX ANTEROSEPTAL INFARCT, AGE INDETERMINATE ST-T WAVE ABNORMALITY IN ANTEROLAT/HIGH LAT LEADS- CONSIDER ISCHEMIA BASELINE ARTIFACT- II, II, AVF ABNORMAL ECG Compared to ECG 11/07/2023 17:34:56 HEART RATE HAS DECREASED Electronically Signed On 11-11-2023 16:52:49 CDT by Christofer Montiel D.O.
[2023-11-11 08:28] LABS: Glucose Point of Care 130 mg/dl (65-105)
[2023-11-11] MEDS: ASPIRIN 81 MG CHEWABLE TABLET PO (08:57)
[2023-11-11] MEDS: ACIDOPHILUS/BULGARICUS CHEWABLE TABLET 2 TABLET PO ×2 (09:01→17:19)
[2023-11-11] MEDS: polyethylene glycoL 3350 17 GM POWD.PACK PO (09:02)
[2023-11-11] MEDS: DOCUSATE SODIUM 100 MG CAPSULE PO ×2 (09:02→20:35)
[2023-11-11] MEDS: TAMSULOSIN HCL 0.4 MG CAPSULE PO (09:02)
[2023-11-11] MEDS: PANTOPRAZOLE SODIUM IV 40 MG VIAL IV PUSH ×2 (09:02→20:34)
[2023-11-11] MEDS: ESCITALOPRAM OXALATE 10 MG TABLET 20 MG PO (09:02)
[2023-11-11] MEDS: GABAPENTIN 100 MG CAPSULE 200 MG PO ×3 (09:02→17:19)
[2023-11-11] MEDS: DORZOLAMIDE HCL 2% OPHTH DROPS 1 DROP EACH EYE ×3 (09:03→17:19)
[2023-11-11] MEDS: BRIMONIDINE TARTRATE 0.15% 5 ML OPHTH SOLN 1 DROP EACH EYE ×3 (09:03→17:19)
--- NOTE | 2023-11-11 10:13 | WPDPN ---
Progress Note: A&P Assessment and Plan (1) SBO (small bowel obstruction): Code(s): K56.609 - Unspecified intestinal obstruction, unspecified as to partial versus complete obstruction Status: Acute Assessment and Plan: Partial small-bowel obstruction likely due to abdominal adhesions. The with non operative measures. We will go ahead advanced diet to solid food today. If tolerating solid food can be discharged later today or tomorrow. Surgical be available p.r.n.. No need for follow-up after discharge. Subjective Date/time seen: 11/11/23 10:13 Interval history: Patient doing well today. No complaints. He tolerated full liquid diet. Still having bowel movements. Exam GI: Other: Abdomen is soft and nondistended. No tenderness to palpation. Exam is benign. Objective Data Vital Signs Vital Signs: Vital Signs - 24 hr 11/10/23 14:00 11/10/23 12:00 11/10/23 16:00 Temperature 36.3 C L Pulse Rate 52 L 40 L 47 L Respiratory Rate 18 Blood Pressure 116/95 H Pulse Oximetry 98 Oxygen Delivery 11/10/23 19:27 11/10/23 20:00 11/10/23 20:00 Temperature 37.0 C Pulse Rate 45 L 41 L Respiratory Rate 18 Blood Pressure 154/76 H Pulse Oximetry 98 Oxygen Delivery Room Air 11/11/23 00:00 11/11/23 04:02 11/11/23 04:00 Temperature 36.6 C Pulse Rate 45 L 45 L 42 L Respiratory Rate 16 Blood Pressure 151/71 H Pulse Oximetry 95 Oxygen Delivery 11/11/23 07:45 11/11/23 08:11 Temperature Pulse Rate 48 L Respiratory Rate Blood Pressure Pulse Oximetry Oxygen Delivery Room Air Intake/Output Intake/Output: Intake & Output 11/08/23 11/09/23 11/10/23 11/11/23 23:59 23:59 23:59 23:59 Intake Total 2640 2046.7 1150 550 Output Total 4850 300 Balance -2210 1746.7 1150 550 Meds/Results Medications: Active Medications Generic Name Dose Route Start Last Admin Trade Name Freq PRN Reason Stop Dose Admin Al Hydrox/Mg Hydrox/Simethicone 30 ml 11/08/23 14:00 11/11/23 05:27 Mag Hydrox/Al Hydrox/Simeth 30 Ml Udc FEED TUBE 30 ml Q8HR BERNARDO Administration Albuterol 2 puff 11/08/23 17:20 Albuterol Sulfate (*Sp) Aerosol 1 Puff INHALATION Q6H PRN Wheezing Artificial Tears 1 drop 11/07/23 21:50 Artificial Tears Ophth Soln 15 Ml Bottle EACH EYE QID PRN Dry Eye(s) Aspirin 81 mg 11/09/23 08:00 11/11/23 08:57 Aspirin 81 Mg Chewable Tablet PO 81 mg DAILY@0800 BERNARDO Administration Brimonidine Tartrate 1 drop 11/08/23 09:00 11/11/23 09:03 Brimonidine Tartrate 0.15% 5 Ml Ophth Soln EACH EYE 1 drop TID BERNARDO Administration Carvedilol 3.125 mg 11/09/23 09:00 11/10/23 08:52 Carvedilol 3.125 Mg Tablet PO Not Given Q12HR BERNARDO Dextrose 12.5 gm 11/07/23 21:35 Dextrose 50% 25 Gm/50 Ml Syringe IV PUSH PRN PRN Hypoglycemia Protocol Docusate Sodium 100 mg 11/11/23 09:00 11/11/23 09:02 Docusate Sodium 100 Mg Capsule PO 100 mg Q12HR BERNARDO Administration Dorzolamide HCl 1 drop 11/08/23 09:00 11/11/23 09:03 Dorzolamide Hcl 2% Ophth Drops EACH EYE 1 drop TID BERNARDO Administration Ergocalciferol 50,000 units 11/09/23 17:00 11/09/23 16:38 Ergocalciferol 50,000 Units Capsule PO 50,000 units WEEKLY BERNARDO Administration Escitalopram Oxalate 20 mg 11/10/23 09:00 11/11/23 09:02 Escitalopram Oxalate 10 Mg Tablet PO 20 mg QAM BERNAROD Administration Gabapentin 200 mg 11/09/23 17:00 11/11/23 09:02 Gabapentin 100 Mg Capsule PO 200 mg TID BERNARDO Administration Glucagon 1 mg 11/07/23 21:35 Glucagon For Inj 1 Mg Vial IM PRN PRN Hypoglycemia Protocol Glucose 15 gm 11/07/23 21:35 Glucose Oral Gel 15 Gm Of Glucse In 37.5 Gm Tube PO PRN PRN Hypoglycemia Protocol Heparin Sodium (Porcine) 5,000 units 11/08/23 22:00 11/11/23 05:27 Heparin Sodium 5,000 Units/Ml Vial SUB-Q 5,000 units Q8HR BERNARDO Admini
[2023-11-11 11:56] LABS: Glucose Point of Care 193 mg/dl (65-105)
[2023-11-11] MEDS: cefTRIAXone 2 GM/NS 100 ML 2 GM/100 ML BAG IVPB (12:24)
[2023-11-11 15:23] LABS: Norovirus RNA PCR, Stool DETECTED
--- NOTE | 2023-11-11 17:05 | PM.IMPN ---
Progress Note: A&P Assessment and Plan (1) Small bowel volvulus: Code(s): K56.2 - Volvulus Status: Acute Assessment and Plan: 68-year-old male smoker with history of stroke, coronary artery disease with history of stents, type 2 diabetes mellitus, hypertension, chronic obstructive pulmonary disease, BPH, prior partial colectomy, who presented to the emergency department via EMS from [facility] for evaluation of chest pressure, nausea, vomiting, and diarrhea. Found to have a volvulus and stercoral colitis. Followed by surgery. NGT discontinued and he was advanced to clears 11/08. Full liquids 11/09, and a regular diet on 11/10 11/06 CT showed 1. Small bowel obstruction which appears to result from a 360 degree volvulus of the small bowel at the proximal margin of an ileocolic anastomosis post prior subtotal proximal colectomy. 2. Prominent stool in the more distal colon with some surrounding inflammatory stranding which can be seen with stercoral colitis. 3. Dilation of the otherwise normal-appearing gallbladder without evident wall thickening or pericholecystic inflammatory stranding to suggest acute cholecystitis. If there is clinical concern for acute cholecystitis could consider right upper quadrant ultrasound or HIDA scan for further evaluation. 4. Bilateral nonobstructing nephrolithiasis. 11/07 Small bowel x-ray showed dilated small bowel, consistent with partial obstruction. 11/11/23: No abdominal pain, nausea, or vomiting. Having BM's Follow exam with regular diet Exam stable, no distention or vomiting. Consider RUQ US or HIDA scan if new concern for acute cholecystitis (2) Urinary tract infection: Code(s): N39.0 - Urinary tract infection, site not specified Status: Acute Assessment and Plan: UA showing positive nitrates, 10-20 wbc's, 1+ urine protein, 1+ leukocyte 3 to urine RBC. Denies dysuria Urine culture showing Serratia marcescens on final read 11/10/23 Antibiotics: Zosyn 11/06-11/08, Ceftiraxone 11/08-11/10. Stop after dose today. Denies dysuria Urine culture showing Serratia marcescens on final read (3) Stercoral colitis: Code(s): K52.89 - Other specified noninfective gastroenteritis and colitis Status: Acute Assessment and Plan: Patient reports multiple loose stools chronically. Asked when he last had a forrmed BM but he didn't remember the last time, possibly months per patiemt. He had opted to stop miralax because of this. 11/06 CT of the abdomen and pelvis shown small-bowel obstruction in the distal colon with some surrounding inflammatory stranding concerning for stercoral colitis. Treating bowel obstruction as noted and monitoring intake 11/11/23: Doing well with full liquids. No abdominal distention or nausea. Had a BM today Advanced diet, monitor Continue miralax (4) Type 2 diabetes mellitus: Code(s): E11.9 - Type 2 diabetes mellitus without complications Status: Acute Assessment and Plan: Gradually advancing diet, blood sugars trending up 11/10 Diet resumed today Resume glipizde tomorrow. Continuing SSI (5) Hypertension: Code(s): I10 - Essential (primary) hypertension Status: Acute Assessment and Plan: 11/11/23: BP 118/51 today. have been holding coreg for bradycardia. One dose of norvasc during admission but hypertension may have been related to pain Holding Coreg 3.125 BID for bradycardia (patient reports chronic bradycardia). Also likely exacerbated by sleep apnea Continued tamsulosin, also for BPH Continue to monitor blood pressures and titrate as needed. (6) Elevated serum creatinine: Code(s): R79.89 - Other specified abnormal findings of blood chemistry Status: Acute Assessment and Plan: Creatinine peaked at 1.7 on 11/08, has since been improving. 11/11/23: Repeat labs improved, 1.4>1.3. Follow creatinine (7) Sinus bradycardia: Co
[2023-11-11 17:54] LABS: Glucose Point of Care 177 mg/dl (65-105)
[2023-11-11] MEDS: POTASSIUM CHLORIDE 20 MEQ ER TABLET PO (18:50)
[2023-11-11] MEDS: ROSUVASTATIN 20 MG TABLET 40 MG PO (20:35)
[2023-11-11 21:35] LABS: Glucose Point of Care 183 mg/dl (65-105)
[2023-11-12] VITALS: PULSE 42
[2023-11-12 04:00] VITALS: PULSE 46
[2023-11-12] MEDS: HEPARIN SODIUM 5,000 UNITS/ML VIAL 5000 UNITS SUB-Q ×2 (05:58→13:10)
[2023-11-12] MEDS: MAG HYDROX/AL HYDROX/SIMETH 30 ML UDC FEED TUBE ×2 (05:59→13:10)
[2023-11-12] MEDS: glipiZIDE 5 MG TABLET PO (05:59)
[2023-11-12 06:00] VITALS: BP 129/66; PULSE 49; RESP 16; TEMP 36.6; O2SAT 95
[2023-11-12 06:05] LABS: Basophils Percent Auto 0.6 % (0.2-1.2); Eosinophils Absolute Auto 0.3 K/mm3 (0-0.3); Eosinophils Percent Auto 4.8 % (0-4.4); Hematocrit 34.6 % (42.0-52.0); Hemoglobin 11.4 g/dL (14.0-18.0); Immature Granulocyte Absolute 0.02 K/mm3 (0.00-0.031); Immature Granulocyte Percent A 0.4 % (0-0.5); Lymphocytes Absolute Auto 1.29 K/mm3 (0.9-3.2); Lymphocytes Percent Auto 23.8 % (18.3-44.2); Mean Corpuscular HGB Conc 32.9 g/dl (32-36); Mean Corpuscular Hemoglobin 28.9 pg (26-34); Mean Corpuscular Volume 87.8 fl (80-100); Mean Platelet Volume 9.1 fl (7.4-10.4); Monocytes Absolute Auto 0.4 K/mm3 (0.1-0.6); Monocytes Percent Auto 7.6 % (2.6-8.5); Neutrophils Absolute Auto 3.4 K/mm3 (1.3-6.7); Neutrophils Percent Auto 62.8 % (45.5-73.1); Platelet Count Result 138 k/mm3 (150-375); Red Blood Count 3.94 M/mm3 (4.6-6.20); Red Cell Distribution Width 13.3 % (11.5-14.5); White Blood Count 5.4 K/mm3 (4.5-10.0)
[2023-11-12 06:17] LABS: Alanine Aminotransferase 19 U/L (6-50); Albumin Level 3.6 g/dL (3.5-5.1); Alkaline Phosphatase 79 U/L (38-126); Anion Gap 7 mmol/L (4-12); Aspartate Amino Transferase 27 U/L (17-59); Bilirubin,Total 0.6 mg/dL (0.2-1.3); Blood Urea Nitrogen 20 mg/dL (9-20); Calcium 8.9 mg/dL (8.4-10.2); Carbon Dioxide 30 mmol/L (22-30); Chloride 105 mmol/L (98-107); Estimated CRCL calculation 62 ml/min; Estimated Glomerular Filt Rate 55; Glucose 143 mg/dL (65-110); Potassium 3.9 mmol/L (3.4-5.0); Sodium 142 mmol/L (137-145)
[2023-11-12 08:10] LABS: Glucose Point of Care 114 mg/dl (65-105)
[2023-11-12] MEDS: FLUTICASONE/SALMETEROL 115-21 MCG INHALER 1 PUFF 2 PUFF INHALATION (09:25)
[2023-11-12] MEDS: UMECLIDINIUM BROMIDE 62.5 MCG ELLIPTA 1 PUFF INHALATION (09:25)
[2023-11-12] MEDS: DORZOLAMIDE HCL 2% OPHTH DROPS 1 DROP EACH EYE ×2 (10:07→12:50)
[2023-11-12] MEDS: BRIMONIDINE TARTRATE 0.15% 5 ML OPHTH SOLN 1 DROP EACH EYE ×2 (10:07→12:50)
[2023-11-12] MEDS: ASPIRIN 81 MG CHEWABLE TABLET PO (10:08)
[2023-11-12] MEDS: ACIDOPHILUS/BULGARICUS CHEWABLE TABLET 2 TABLET PO (10:08)
[2023-11-12] MEDS: ESCITALOPRAM OXALATE 10 MG TABLET 20 MG PO (10:08)
[2023-11-12] MEDS: TAMSULOSIN HCL 0.4 MG CAPSULE PO (10:09)
[2023-11-12] MEDS: PANTOPRAZOLE SODIUM IV 40 MG VIAL IV PUSH (10:09)
[2023-11-12] MEDS: GABAPENTIN 100 MG CAPSULE 200 MG PO ×2 (10:09→12:49)
[2023-11-12 11:57] LABS: Glucose Point of Care 115 mg/dl (65-105)
--- NOTE | 2023-11-12 12:32 | PM.DS ---
DS: Admitting Diagnosis Discharge Date 11/12/2023 Admitting Diagnosis Small bowel volvulus DS: Discharge Diagnosis Discharge Diagnosis (1) Small bowel volvulus: Code(s): K56.2 - Volvulus Status: Acute DS: Summary Hospital Course Reason for hospitalization: Small bowel volvulus: Hospital Course: 68-year-old male smoker with history of stroke, coronary artery disease with history of stents, type 2 diabetes mellitus, hypertension, chronic obstructive pulmonary disease, BPH, prior partial colectomy, who presented to the emergency department via EMS from [facility] for evaluation of chest pressure, nausea, vomiting, and diarrhea. Found to have a volvulus and stercoral colitis. Followed by surgery. NGT discontinued and he was advanced to clears 11/08. Full liquids 11/09, and a regular diet on 11/10 Patient is seen by his surgeon suspect patient has partial bowl obstruction due to abdominal adhesions, patient does need any surgical intervention as he is able to tolerate his diet and has BM, patient is clinically stable, will discharge home today. Time Spent with Patient Time attestation: Total time spent providing and/or coordinating discharge services: Exam Narrative: GENE: patient is comfortable, NAD HEENT: eyes are clear nonicteric, HEART: RR S1S2 LUNGS: CTA ABD: Obese BS+ diffusely tender EXT: no edema SKIN: no obviuos rash NEURO: grossly intact. DS: Data Data Completed and Pending Labs on day of discharge: Labs from last 24 hours 11/12/23 11/12/23 11/12/23 11:55 08:06 05:45 WBC 5.4 RBC 3.94 L Hgb 11.4 L Hct 34.6 L MCV 87.8 MCH 28.9 MCHC 32.9 RDW 13.3 Plt Count 138 L MPV 9.1 Immature Gran % (Auto) 0.4 Neut % (Auto) 62.8 Lymph % (Auto) 23.8 [place] % (Auto) 7.6 Eos % (Auto) 4.8 H Baso % (Auto) 0.6 Lymph # (Auto) 1.29 [place] # (Auto) 0.4 Eos # (Auto) 0.3 Baso # (Auto) 0.0 Abs Immat Gran (auto) 0.02 Absolute Neuts (auto) 3.4 Absolute Nucleated RBC 0.000 Nucleated RBC % 0.0 Sodium 142 Potassium 3.9 Chloride 105 Carbon Dioxide 30 Anion Gap 7 BUN 20 Creatinine 1.30 Estim Creat Clear Calc 62 Estimated GFR 55 L Glucose 143 H POC Capillary Glucose 115 H 114 H Calcium 8.9 Total Bilirubin 0.6 AST 27 ALT 19 Alkaline Phosphatase 79 Total Protein 7.0 Albumin 3.6 Stool Norovirus (PCR) 11/11/23 11/11/23 11/08/23 20:28 17:14 01:58 WBC RBC Hgb Hct MCV MCH MCHC RDW Plt Count MPV Immature Gran % (Auto) Neut % (Auto) Lymph % (Auto) [place] % (Auto) Eos % (Auto) Baso % (Auto) Lymph # (Auto) [place] # (Auto) Eos # (Auto) Baso # (Auto) Abs Immat Gran (auto) Absolute Neuts (auto) Absolute Nucleated RBC Nucleated RBC % Sodium Potassium Chloride Carbon Dioxide Anion Gap BUN Creatinine Estim Creat Clear Calc Estimated GFR Glucose POC Capillary Glucose 183 H 177 H Calcium Total Bilirubin AST ALT Alkaline Phosphatase Total Protein Albumin Stool Norovirus (PCR) Detected A Discharge Plan Discharge Attending physician on discharge: Juan Diego Castro Consulting providers: Jeremy Bustos Discharging Clinician: Juan Diego Castro Patient Disposition: CO Shelter/Asst Living Activity: as tolerated Diet: diabetic Discharge Instructions: Patient may discharge from the hospital tolerating solid food from a general surgery standpoint. No need to follow with General surgery after discharge. Disposition as per primary admitting service. Discharge medications as per admitting service. Patient to follow discharge instruction from his surgeon and follow up as schedule, patient to follow up with his primary care provider as soon as possible, patient is instructed to small meals, avoid heavy fibrous an
[2023-11-12 14:18] VITALS: BP 145/68; PULSE 49; RESP 17; TEMP 36.4; O2SAT 97
== END 2023-11-12 16:00 | DRG 389 ==
LOC: ANHED 11:01 → ANHIMU 15:16 → ANH3MEDSUR 16:14 → ANH3MED 18:21 → ANH3MEDSUR 11-15 14:46
PROVIDERS: Internal Medicine; Nurse Practitioner Acute Care; Physician Assistant; Admitting Provider General Practice; Emergency Provider Emergency Medicine; Visit Provider Family Medicine
DX: K56.2 Volvulus (principal); E87.3 Alkalosis; I69.354 Hemiplegia and hemiparesis following cerebral infarction affecting left non-dominant side; N39.0 Urinary tract infection, site not specified; B96.89 Other specified bacterial agents as the cause of diseases classified elsewhere; K52.89 Other specified noninfective gastroenteritis and colitis; E11.9 Type 2 diabetes mellitus without complications; F17.210 Nicotine dependence, cigarettes, uncomplicated; G47.33 Obstructive sleep apnea (adult) (pediatric); I10 Essential (primary) hypertension; I25.10 Atherosclerotic heart disease of native coronary artery without angina pectoris; J44.9 Chronic obstructive pulmonary disease, unspecified; K82.8 Other specified diseases of gallbladder; N20.0 Calculus of kidney; N40.0 Benign prostatic hyperplasia without lower urinary tract symptoms; Z95.5 Presence of coronary angioplasty implant and graft; Z90.49 Acquired absence of other specified parts of digestive tract; Z85.038 Personal history of other malignant neoplasm of large intestine; Z92.21 Personal history of antineoplastic chemotherapy; Z79.84 Long term (current) use of oral hypoglycemic drugs; Z79.82 Long term (current) use of aspirin; Z20.822 Contact with and (suspected) exposure to COVID-19
CPT/HCPCS: 36415; 74177; 74250; 80048; 80053; 81001; 82803; 82948; 83036; 83605; 83690; 83735; 84100; 84443; 84484; 85025; 85027; 85610; 87045; 87077; 87086; 87088; 87186; 87427; 87449; 87493; 87637; 87798; 93005; 93306; 94640; 96361; 96365; 96367; 96375; 99285; A9270; C8929; G0378; J0696; J1644; J1836; J2270; J2405; J2470; J2543; J3475; J7030; Q9957; Q9967

== ENCOUNTER 2024-01-07 21:32 | Emergency (ER) | payer MEDICARE, MEDICAID, SELFPAY ==
[2024-01-07 21:30] VITALS: BP 136/66; PULSE 61; RESP 17; TEMP 36.8; O2SAT 94
[2024-01-07 21:40] VITALS: RESP 17; O2SAT 94
--- NOTE | 2024-01-07 21:45 | ED.GENADULT ---
HPI - General Adult General Chief complaint: Unspecified Stated complaint: SORE THROAT Time Seen by Provider: 01/07/24 21:34 Source: patient Mode of arrival: ambulatory Limitations: no limitations History of Present Illness HPI narrative: This is a 68-year-old male who presents to the ED via EMS from [facility] for chief complaint of sore throat x1 day. patient states that he has had history throat abscess in the past and wants make sure that it is not another abscess today. States that a SNUFF GRINDER AND SCREENER took a look at his throat at the prison thought that it looked horrible. Patient reports significant pain with swallowing. Denies cough, fevers, chills, nausea, vomiting, muffled voice, trismus, drooling. Related Data Home Medications Medication Instructions Recorded Confirmed Lactobacillus acidophilus 2,000 mmu cells PO BID 11/07/23 11/07/23 acetaminophen 325 mg tablet 650 mg PO Q8H PRN Pain, Mild 11/07/23 11/07/23 albuterol sulfate 90 mcg/actuation 2 puff inhalation Q4H PRN Wheezing 11/07/23 11/07/23 aerosol inhaler albuterol sulfate 90 mcg/actuation 2 puff inhalation Q6H PRN Wheezing 11/07/23 11/07/23 aerosol inhaler aspirin 81 mg tablet,delayed 81 mg PO DAILY 11/07/23 11/07/23 release brimonidine 0.15 %-dorzolamide 2 % 1 drp ophthalmic (eye) TID 11/07/23 11/07/23 (PF) eye drops budesonide-formoterol HFA 160 2 puff inhalation Q12H 11/07/23 11/07/23 mcg-4.5 mcg/actuation aerosol inhaler (Symbicort) cabergoline 0.5 mg tablet 0.5 mg PO 2XW 11/07/23 11/07/23 carboxymethylcellulose sodium 0.5 1 drp EACH EYE QID PRN Dry Eyes 11/07/23 11/07/23 % eye drops in a dropperette (Refresh Plus) carvedilol 3.125 mg tablet 3.125 mg PO BID 11/07/23 11/07/23 cyclobenzaprine 5 mg tablet 5 mg PO TID PRN Muscle Spasticity 11/07/23 11/07/23 dextromethorphan-guaifenesin 10 10 ml PO Q4-6H PRN Cough 11/07/23 11/07/23 mg-100 mg/5 mL oral syrup ergocalciferol (vitamin D2) 1,250 1,250 mcg PO WEEKLY 11/07/23 11/07/23 mcg (50,000 unit) capsule escitalopram oxalate 20 mg tablet 20 mg PO QAM 11/07/23 11/07/23 gabapentin 100 mg capsule 200 mg PO TID 11/07/23 11/07/23 glipizide 5 mg tablet 5 mg PO QAM 11/07/23 11/07/23 hydrocodone 5 mg-acetaminophen 325 1 tablet PO Q6H PRN Pain, Mild 11/07/23 11/07/23 mg tablet loperamide 2 mg capsule 2 mg PO Q6H PRN Diarrhea 11/07/23 11/07/23 (Anti-Diarrheal (loperamide)) melatonin 5 mg tablet 5 mg PO HS 11/07/23 11/07/23 ondansetron 4 mg disintegrating 4 mg PO Q4H PRN Nausea And Vomiting 11/07/23 11/07/23 tablet polyethylene glycol 3350 17 17 g PO PRN PRN Constipation 11/07/23 11/07/23 gram/dose oral powder rosuvastatin 40 mg tablet 40 mg PO QHS 11/07/23 11/07/23 sennosides 8.6 mg tablet (Senokot) 8.6 mg PO PRN PRN Constipation 11/07/23 11/07/23 tamsulosin 0.4 mg capsule 0.4 mg PO QAM 11/07/23 11/07/23 tiotropium bromide 2.5 2 puff inhalation QA 11/07/23 11/07/23 mcg/actuation mist for inhalation (Spiriva Respimat) Allergies Allergy/AdvReac Type Severity Reaction Status Date / Time hydralazine AdvReac Vomiting Verified 01/07/24 21:42 lisinopril AdvReac Rash Verified 01/07/24 21:42 metformin AdvReac Diarrhea Verified 01/07/24 21:42 pioglitazone AdvReac Nausea Verified 01/07/24 21:42 simvastatin AdvReac Rash Verified 01/07/24 21:42 Review of Systems Review of Systems: All systems as dictated in [facility] Past Medical History Medical History Benign prostatic hyperplasia Cerebrovascular accident Chronic obstructive pulmonary disease Coronary artery disease Hypertension Obstructive sleep apnea Intolerant of CPAP Tobacco abuse Type 2 diabetes mellitus Surgical History Surgical History History of cardiac catheterization History of coronary artery stent placement History of partial colectomy Family History Family History (Reviewed 0
[2024-01-07] MEDS: IBUPROFEN 600 MG TABLET PO (21:55)
[2024-01-07] MEDS: ACETAMINOPHEN 325 MG TABLET 650 MG PO (21:55)
[2024-01-07] MEDS: dexAMETHasone SOD PHOS INJ 10 MG/ML 1 ML VIAL IM (21:58)
[2024-01-07 22:29] LABS: Strep Group A RT-PCR NOT DETECTED (Negative)
[2024-01-07 22:37] VITALS: BP 103/40; PULSE 51; RESP 18; O2SAT 95
[2024-01-07 22:40] LABS: Influenza A QL RT-PCR Negative (Negative); Influenza B QL RT-PCR Negative (Negative); RSV RNA, RT-PCR Negative (Negative); SARS-CoV-2 RNA PCR Negative (Negative)
[2024-01-07] MEDS: AMOXICILLIN/CLAVULANATE K 500-125 MG TAB 1 TABLET PO (23:16)
--- NOTE | 2024-01-07 23:31 | PC.NURSE ---
This RN spoke with Ira from [facility] to give her dsicahrge instructions on pt that we are sending back to their facility.
[2024-01-08 00:17] VITALS: BP 144/60; PULSE 48; RESP 17; O2SAT 94
[2024-01-08 01:48] VITALS: BP 158/60; PULSE 51; RESP 18; O2SAT 94
== END 2024-01-08 01:51 ==
PROVIDERS: Emergency Provider Physician Assistant
DX: J02.9 Acute pharyngitis, unspecified (principal); Z20.822 Contact with and (suspected) exposure to COVID-19; I25.10 Atherosclerotic heart disease of native coronary artery without angina pectoris; I10 Essential (primary) hypertension; J44.9 Chronic obstructive pulmonary disease, unspecified; E11.9 Type 2 diabetes mellitus without complications; N40.0 Benign prostatic hyperplasia without lower urinary tract symptoms; G47.33 Obstructive sleep apnea (adult) (pediatric); F17.200 Nicotine dependence, unspecified, uncomplicated; Z86.73 Personal history of transient ischemic attack (TIA), and cerebral infarction without residual deficits; Z90.49 Acquired absence of other specified parts of digestive tract; Z79.84 Long term (current) use of oral hypoglycemic drugs; Z79.899 Other long term (current) drug therapy
CPT/HCPCS: 87637; 87651; 96372; 99283; A9270; J1100

== ENCOUNTER 2024-05-15 12:10 | Inpatient (IN) | payer MEDICARE, MEDICAID, SELFPAY ==
[2024-05-15] VITALS (15 sets, daily range): BP systolic 94–150; BP diastolic 42–61; PULSE 40–58; RESP 13–20; TEMP 36.4–36.7; O2SAT 96–100; BMI 34.0
--- NOTE | ~2024-05-15 | CT_ITS ---
CTA chest PE protocol Ordering provider: Quoc Awad MD History: 68 years Male with . dyspnea . Comparison: None. Technique: CT angiogram chest was performed following timed intravenous injection of contrast. Thin s lice axial images and reformatted coronal images were obtained. Three dimensional reformatted images of the chest were also obtained using a [employer] workstation. . Automated exposure control and iterati ve reconstruction technique were employed. The dose-length product was 972.63 mGy-cm. 100 mL Omnipaqu e 350 was given IV. Findings: PULMONARY ARTERIES: No pulmonary embolus. VISUALIZED THORACIC INLET: Normal. MEDIASTINUM: Aorta/coronary arteries: Moderate atheromatous disease. Heart/other: The heart is slightly enlarged. Lymph nodes: No mediastinal or hilar adenopathy. LUNGS: No pulmonary nodules or masses. No infiltrates or effusions. No pneumothorax. Subsegmental atelectasi s in the left lung base. VISUALIZED UPPER ABDOMEN: Slightly prominent both adrenal glands. Adenoma on the right measures 1.1 c m. In the left measures 2 cm. Small hyperdensity in the wall of the gallbladder most likely vascular. Otherwise, the visualized upper abdomen is normal. MUSCULOSKELETAL: Soft tissues: The superficial soft tissues are normal. Bones: Age appropriate degenerative changes of the spine. Slight loss of volume is seen in T12 and L1 . IMPRESSION: 1. No pulmonary embolism. 2. No acute cardiopulmonary 3. Bilateral adrenal adenomas. No follow-up is advised. Pathology unless clinically warranted.. Reviewed, dictated and finalized at location A. RN DANCER IMPRESSION: 1. No pulmonary embolism. 2. No acute cardiopulmonary 3. Bilateral adrenal adenomas. No follow-up is advised. Pathology unless clini june warranted..
--- NOTE | ~2024-05-15 | XR_ITS ---
EXAMINATION: XR chest 2V DATE: 05/15/2024 13:20 INDICATION: Shortness of breath. TECHNIQUE: Frontal and lateral views of the chest were obtained on 3 radiographs. COMPARISON: CT abdomen and pelvis 11/07/2023 FINDINGS: There is no pneumonia, pleural effusion, or pneumothorax. Cardiomegaly is noted. There is a n electronic implant in left chest wall. IMPRESSION: 1. Cardiomegaly. Reviewed, dictated and finalized at location A. R DOWN IMPRESSION: 1. Cardiomegaly.
--- NOTE | 2024-05-15 12:30 | ECG_ITS ---
Test Date: 2024-05-15 12:32:14 Measurements Intervals [place] Rate: 42 P: 44 [place]: 246 QRS: -25 QRSD: 86 T: 101 QT: 452 QTc: 379 Interpretive Statements SINUS BRADYCARDIA WITH FIRST DEGREE AV BLOCK POSSIBLE ANTERIOR MYOCARDIAL INFARCTION , PROBABLY OLD [30 ms Q WAVE IN V3/V4, OR R < 0.2 mV IN V4] NONSPECIFIC ST AND T WAVE ABNORMALITY Compared to ECG 11/11/2023 11:07:41 NO SIGNIFICANT CHANGES Electronically Signed On 05-17-2024 17:01:51 SPOT BILLING CLERK by Cheyanne Díaz M.D.
[2024-05-15 12:54] LABS: Basophils Percent Auto 0.4 % (0.2-1.2); Eosinophils Absolute Auto 0.3 K/mm3 (0-0.3); Eosinophils Percent Auto 4.8 % (0-4.4); Hematocrit 36.3 % (42.0-52.0); Immature Granulocyte Absolute 0.04 K/mm3 (0.00-0.031); Immature Granulocyte Percent A 0.6 % (0-0.5); Lymphocytes Absolute Auto 1.13 K/mm3 (0.9-3.2); Lymphocytes Percent Auto 15.9 % (18.3-44.2); Mean Corpuscular HGB Conc 33.1 g/dl (32-36); Mean Corpuscular Hemoglobin 28.8 pg (26-34); Mean Corpuscular Volume 87.3 fl (80-100); Mean Platelet Volume 8.5 fl (7.4-10.4); Monocytes Absolute Auto 0.4 K/mm3 (0.1-0.6); Monocytes Percent Auto 6.1 % (2.6-8.5); Neutrophils Absolute Auto 5.1 K/mm3 (1.3-6.7); Neutrophils Percent Auto 72.2 % (45.5-73.1); Platelet Count Result 177 k/mm3 (150-375); Red Blood Count 4.16 M/mm3 (4.6-6.20); Red Cell Distribution Width 13.7 % (11.5-14.5); White Blood Count 7.1 K/mm3 (4.5-10.0)
[2024-05-15 13:03] LABS: Alanine Aminotransferase 17 U/L (6-50); Albumin Level 3.6 g/dL (3.5-5.1); Alkaline Phosphatase 95 U/L (38-126); Anion Gap 4 mmol/L (4-12); Aspartate Amino Transferase 19 U/L (17-59); Bilirubin,Total 0.9 mg/dL (0.2-1.3); Blood Urea Nitrogen 14 mg/dL (9-20); Calcium 9.4 mg/dL (8.4-10.2); Carbon Dioxide 35 mmol/L (22-30); Chloride 101 mmol/L (98-107); Estimated CRCL calculation 62 ml/min; Estimated Glomerular Filt Rate 55; Glucose 136 mg/dL (65-110); Sodium 140 mmol/L (137-145)
--- NOTE | 2024-05-15 14:22 | ED_ITS ---
HPI - SOB/Dyspnea General Chief Complaint: Shortness of Breath/Dyspnea Stated Complaint: SOB Time Seen by Provider: 05/15/24 13:44 History of Present Illness HPI Narrative: 68-year-old male with complex past medical history including CVA with residual left-sided deficits, COPD, coronary disease, hypertension, obstructive sleep apnea, diabetes. Patient presents from his correction facility for concerns of hypoxia, difficulty in breathing and shortness of breath. Patient's saturation was in the low 80s with labored respirations. Patient received albuterol in the facility and via EMS with some mild improvement in symptoms. Patient does not normally wear oxygen but presently is on 6 L nasal cannula and has oxygen saturation 97%. Patient states he has been having a productive cough for last several weeks, endorses a chest pain and tightness. States he felt better after albuterol. No nausea, vomiting, fever, chills, back pain. He does live mostly sedentary secondary to his stroke but no history of DVT or PE. Related Data Home Medications ?Medication ?Instructions ?Recorded ?Confirmed ?Last Taken ?Type Lactobacillus acidophilus 2,000 mmu cells PO BID 11/07/23 11/07/23 11/06/23 History acetaminophen 325 mg tablet 650 mg PO Q8H PRN Pain, Mild 11/07/23 11/07/23 Unknown History albuterol sulfate 90 mcg/actuation 2 puff inhalation Q4H PRN Wheezing 11/07/23 11/07/23 Unknown History aerosol inhaler albuterol sulfate 90 mcg/actuation 2 puff inhalation Q6H PRN Wheezing 11/07/23 11/07/23 Unknown History aerosol inhaler aspirin 81 mg tablet,delayed 81 mg PO DAILY 11/07/23 11/07/23 11/06/23 History release brimonidine 0.15 %-dorzolamide 2 % 1 drp ophthalmic (eye) TID 11/07/23 11/07/23 11/06/23 History (PF) eye drops budesonide-formoterol HFA 160 2 puff inhalation Q12H 11/07/23 11/07/23 11/06/23 History mcg-4.5 mcg/actuation aerosol inhaler (Symbicort) cabergoline 0.5 mg tablet 0.5 mg PO 2XW 11/07/23 11/07/23 11/05/23 History carboxymethylcellulose sodium 0.5 1 drp EACH EYE QID PRN Dry Eyes 11/07/23 11/07/23 Unknown History % eye drops in a dropperette (Refresh Plus) carvedilol 3.125 mg tablet 3.125 mg PO BID 11/07/23 11/07/23 11/06/23 History cyclobenzaprine 5 mg tablet 5 mg PO TID PRN Muscle Spasticity 11/07/23 11/07/23 11/04/23 History dextromethorphan-guaifenesin 10 10 ml PO Q4-6H PRN Cough 11/07/23 11/07/23 Unknown History mg-100 mg/5 mL oral syrup ergocalciferol (vitamin D2) 1,250 1,250 mcg PO WEEKLY 11/07/23 11/07/23 11/02/23 History mcg (50,000 unit) capsule escitalopram oxalate 20 mg tablet 20 mg PO QAM 11/07/23 11/07/23 11/07/23 History gabapentin 100 mg capsule 200 mg PO TID 11/07/23 11/07/23 11/06/23 History glipizide 5 mg tablet 5 mg PO QAM 11/07/23 11/07/23 11/06/23 History hydrocodone 5 mg-acetaminophen 325 1 tablet PO Q6H PRN Pain, Mild 11/07/23 11/07/23 11/04/23 History mg tablet loperamide 2 mg capsule 2 mg PO Q6H PRN Diarrhea 11/07/23 11/07/23 Unknown History (Anti-Diarrheal (loperamide)) melatonin 5 mg tablet 5 mg PO HS 11/07/23 11/07/23 11/06/23 History ondansetron 4 mg disintegrating 4 mg PO Q4H PRN Nausea And Vomiting 11/07/23 11/07/23 Unknown History tablet polyethylene glycol 3350 17 17 g PO PRN PRN Constipation 11/07/23 11/07/23 Unknown History gram/dose oral powder rosuvastatin 40 mg tablet 40 mg PO QHS 11/07/23 11/07/23 11/06/23 History sennosides 8.6 mg tablet (Senokot) 8.6 mg PO PRN PRN Constipation 11/07/23 11/07/23 Unknown History tamsulosin 0.4 mg capsule 0.4 mg PO QAM 11/07/23 11/07/23 11/06/23 History tiotropium bromide 2.5 2 puff inhalation QAM 11/07/23 11/07/23 11/06/23 History mcg/actuation mist for inhalation (Spiriva Respimat) Allergies Allergy/AdvReac Type Severity Reaction Status Date / Time hydralazine AdvReac Vomiting Verified 02/08/24 11:36 lisinopril AdvReac Rash Verified 02/08/24 11:36 metformin AdvReac Diarrhea Verified 02/08/24 11:36 pioglitazone AdvReac Nausea Verified 02/08/24 11:36 simvastatin AdvReac Rash Verified 02/08/24 11:36 Review of Systems 2 Review of Systems: As reviewed above in his [facility] Past Medical History Medical History Coronary artery disease Benign prostatic hyperplasia Tobacco abuse Chronic obstructive pulmonary disease Obstructive sleep apnea Intolerant of CPAP Hypertension Type 2 diabetes mellitus Cerebrovascular accident Surgical History Surgical History History of coronary artery stent placement History of cardiac catheterization History of partial colectomy Family History Family History Other Family history non-contributory Social History Social History Social History: Surrogate medical decision maker: Clarita Hobbs, mother. Code status: Full code. Smoking status: Current every day smoker Alcohol intake: unknown Substance use: unknown Do You Feel Safe in your Home?: Yes Lack of Transportation: No Lack of Food: Never True Current Housing: I Have Housing Concerned About Future Housing: No Difficulty Paying Gas/Electric Bills: No Difficulty Paying for Meds: No Currently Unemployed: No Education: Decline to Answer Difficulty w/ Childcare or Family Care: No Additional living arrangements comments: Resident at [facility]. 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 Spiritual care concerns: No Exam 2 Narrative: GENERAL: Chronically ill-appearing but not in any acute distress HEAD: [Normocephalic, atraumatic.] EYES: [PERRLA and EOMI.] ENT: Nares clear, no rhinorrhea or epistaxis. Mucous membranes moist. NECK: Supple. CHEST: Coarse breath sounds but no prolonged expiratory phase or wheezing. No current tachypnea or respiratory distress HEART: Bradycardic rate, regular rhythm. No murmur heard. [Normal peripheral pulses.] ABDOMEN: [Soft, nondistended], [nontender], [No rigidity or guarding] EXTREMITIES: Normal range of motion. Has 1+ edema SKIN: Warm, dry, no rash. NEURO: Residual left-sided deficits but no new focal deficits. Alert and oriented [x3.] PSYCH: [Normal mood and affect.] Course Vital Signs Vital signs: Vital Signs Temperature 36.4 C 05/15/24 12:19 Pulse Rate 42 L 05/15/24 12:19 Respiratory Rate 19 05/15/24 12:19 Blood Pressure 125/61 05/15/24 12:19 Pulse Oximetry 97 05/15/24 12:19 Oxygen Delivery Nasal Cannula 05/15/24 12:19 Oxygen Flow Rate 4 05/15/24 12:19 Temperature 36.4 C 05/15/24 12:19 Pulse Rate 58 L 05/15/24 19:09 Respiratory Rate 20 05/15/24 19:09 Blood Pressure 150/51 H 05/15/24 19:09 Pulse Oximetry 98 05/15/24 19:09 Oxygen Delivery Nasal Cannula 05/15/24 14:58 Oxygen Flow Rate 3 05/15/24 14:58 Fraction of Inspired Oxygen 32 05/15/24 14:58 MDM - SOB/Dyspnea MDM Narrative Medical decision making narrative: 68-year-old male presenting from his correction facility for dyspnea, hypoxia and difficulty breathing. He describes a chest tightness and pain sensation as well as feeling he can catch his breath. [place] improved after the albuterol treatment EN route. He is not have any wheezing or prolonged expiratory phase. No labored respirations and the ED but is hypoxic requiring oxygen saturation. Not normally on oxygen. He is bradycardic but states this is not unusual for him. He normally has a low heart rate. Vital signs show bradycardia, sinus rhythm on the monitor, no blood pressure concerns, tachypnea, fever but is hypoxic. He does have some pitting edema in complex history including heart failure, CVA with residual deficits, COPD, previous PR. considerations presently are for COPD exacerbation, CHF exacerbation, pneumonia, pulmonary embolism. Chest x-ray, cardiac workup, CT angiography was ordered. He is presently not having any labored respirations or wheezing, will re- evaluate if he needs additional breathing treatments. Workup shows no leukocytosis or anemia worse than baseline. Normal platelet count. Chemistry panel within normal limits but does show some CO2 retention, normal renal function panel. Glucose acceptable 136. Normal hepatic function panel. Negative initial troponin, BNP mildly elevated 1400. COVID fluid RSV swab negative. Chest x-ray shows some cardiomegaly but no pleural effusions pneumonia or pneumothorax. CT angiography shows no pulmonary embolism, no acute cardiopulmonary disease. Bilateral adrenal adenomas. Patient's EKG shows sinus bradycardia with first-degree block but no ST segment elevations, depressions or inversions. Three hour EKG without any changes. The patient was treated with IV Solu-Medrol, magnesium sulfate, continuous nebulized albuterol and ipratropium with improvement in symptoms. He will be admitted to the hospital for a COPD exacerbation at this time. Awaiting call and consult from the hospitalist service at this time for admission. Spoke to the mid-level provider currently covering the hospitalist service. We went over patient's imaging studies, clinical assessment, hypoxic respiratory failure requiring oxygen and COPD exacerbations likely cause. He was accepted to a telemetry monitored bed at this time given his bradycardia and oxygen requirement. Patient comfortable this plan of care for admission. Differential Diagnosis Differential diagnosis: Likely acute exacerbation of chronic obstructive airways disease, congestive heart failure, community acquired pneumonia, asthma with exacerbation, pulmonary embolism and other Medical Records Attestation: I reviewed the patient's medical records. Lab Data Attestation: I reviewed the patient's lab results. 05/15/24 12:47 05/15/24 12:47 Labs: Lab Results 05/15/24 05/15/24 05/15/24 Range/Units 12:47 14:09 15:40 WBC 7.1 (4.5-10.0) K/mm3 RBC 4.16 L (4.6-6.20) M/mm3 Hgb 12.0 L (14.0-18.0) g/dL Hct 36.3 L (42.0-52.0) % MCV 87.3 (80-100) fl MCH 28.8 (26-34) pg MCHC 33.1 (32-36) g/dl RDW 13.7 (11.5-14.5) % Plt Count 177 (150-375) k/mm3 MPV 8.5 (7.4-10.4) fl Immature Gran % (Auto) 0.6 H (0-0.5) % Neut % (Auto) 72.2 (45.5-73.1) % Lymph % (Auto) 15.9 L (18.3-44.2) % [place] % (Auto) 6.1 (2.6-8.5) % Eos % (Auto) 4.8 H (0-4.4) % Baso % (Auto) 0.4 (0.2-1.2) % Lymph # (Auto) 1.13 (0.9-3.2) K/mm3 [place] # (Auto) 0.4 (0.1-0.6) K/mm3 Eos # (Auto) 0.3 (0-0.3) K/mm3 Baso # (Auto) 0.0 (0.0-0.1) K/mm3 Abs Immat Gran (auto) 0.04 H (0.00-0.031) K/mm3 Absolute Neuts (auto) 5.1 (1.3-6.7) K/mm3 Absolute Nucleated RBC 0.000 (0.0-0.012) K/mm3 Nucleated RBC % 0.0 (0.0-0.2) % Sodium 140 (137-145) mmol/L Potassium 4.0 (3.4-5.0) mmol/L Chloride 101 (98-107) mmol/L Carbon Dioxide 35 H (22-30) mmol/L Anion Gap 4 (4-12) mmol/L BUN 14 D (9-20) mg/dL Creatinine 1.30 (0.7-1.3) mg/dL Estim Creat Clear Calc 62 ml/min Estimated GFR 55 L (59 - ) Glucose 136 H (65-110) mg/dL Calcium 9.4 (8.4-10.2) mg/dL Total Bilirubin 0.9 (0.2-1.3) mg/dL AST 19 (17-59) U/L ALT 17 (6-50) U/L Alkaline Phosphatase 95 (38-126) U/L Troponin I 0.017 0.017 (0.000-0.034) ng/mL NT-Pro-B Natriuret Pep 1420 H (19.9-100) pg/mL Total Protein 7.0 (6.3-8.2) g/dL Albumin 3.6 (3.5-5.1) g/dL Influenza A (RT-PCR) Negative (Negative) Influenza B (RT-PCR) Negative (Negative) RSV (RT-PCR) Negative (Negative) SARS-CoV-2 RNA (RT-PCR) Negative (Negative) Imaging Data Attestation: I personally reviewed and interpreted this imaging study as follows: My impression: Impressions Chest X-Ray 05/15/24 13:22 IMPRESSION: 1. Cardiomegaly. Chest CTA 05/15/24 14:29 IMPRESSION: 1. No pulmonary embolism. 2. No acute cardiopulmonary 3. Bilateral adrenal adenomas. No follow-up is advised. Pathology unless clinically warranted.. Critical Care Time Critical Care Time Critical Care Time: Yes Total Critical Care Time: 80 Discharge Plan Discharge Clinical Impression: Acute hypoxic on chronic hypercapnic respiratory failure, Acute exacerbation of chronic obstructive pulmonary disease, Requires supplemental oxygen Patient Disposition: Still a Patient Condition: Guarded Prognosis Time of Disposition: 16:08
[2024-05-15 14:30] LABS: NT Pro B Type Natriuretic Pept 1420 pg/mL (19.9-100); Troponin I 0.017 ng/mL (0.000-0.034)
[2024-05-15 14:50] LABS: Influenza A QL RT-PCR Negative (Negative); Influenza B QL RT-PCR Negative (Negative); RSV RNA, RT-PCR Negative (Negative); SARS-CoV-2 RNA PCR Negative (Negative)
[2024-05-15] MEDS: ALBUTEROL SULFATE NEB 2.5 MG/3 ML INH 10 MG INHALATION (14:58)
[2024-05-15] MEDS: IPRATROPIUM BR 0.02% INH SOLN 0.5 MG/2.5 ML VIAL 1 MG INHALATION (14:58)
--- NOTE | 2024-05-15 15:43 | ECG_ITS ---
Test Date: 2024-05-15 15:47:49 Measurements Intervals [place] Rate: 42 P: 61 [place]: 253 QRS: -26 QRSD: 85 T: 71 QT: 434 QTc: 364 Interpretive Statements SINUS BRADYCARDIA WITH FIRST DEGREE AV BLOCK POSSIBLE ANTERIOR MYOCARDIAL INFARCTION , PROBABLY OLD [30 ms Q WAVE IN V3/V4, OR R < 0.2 mV IN V4] NONSPECIFIC ST AND T WAVE ABNORMALITY Compared to ECG 05/15/2024 12:32:14 NO SIGNIFICANT CHANGES Electronically Signed On 05-17-2024 17:04:32 COVER MAT MACHINE OPERATOR by Cheyanne Díaz M.D.
[2024-05-15 16:12] LABS: Troponin I 0.017 ng/mL (0.000-0.034)
[2024-05-15] MEDS: methylPREDNISolone SOD SUCC 125 MG VIAL IV PUSH (16:44)
[2024-05-15] MEDS: MAGNESIUM SULF 2 GM/WATER 50ML 2 GM/50 ML BAG IVPB (16:45)
[2024-05-15] MEDS: SODIUM CHLORIDE 0.9% IV 1,000 ML 999 ML (17:05)
--- NOTE | 2024-05-15 17:25 | PC.NURSE ---
spoke to Enio MARCIAL at [facility] at [phone]. updated him on that the pt would be admitted
--- NOTE | 2024-05-15 21:39 | PM.IMHP ---
H&P: HPI History of Present Illness Date/Time: 05/15/24 21:39 Chief Complaint: Shortness of Breath Narrative: Patient was brought in to the ER from the facility that he resides with reports of worsening SOB. Patient has a Hx of COPD and currently smokes 8 cigarettes/day. He reports progressive SOB within the last couple of days with some yellowish sputum. He denies any chills or fevers, hemoptysis, chest pain, abdominal pain, nausea or vomiting. Patient has a Hx of CVA with left hemiparesis.He also has a Hx of DM 2, CAD, JAMES, HTN, BPH. Review of Systems Review of Systems: All systems reviewed & are unremarkable except as noted in HPI and below PMFSH Past Medical History Medical History Coronary artery disease Benign prostatic hyperplasia Tobacco abuse Chronic obstructive pulmonary disease Obstructive sleep apnea Intolerant of CPAP Hypertension Type 2 diabetes mellitus Cerebrovascular accident Surgical History Surgical History History of coronary artery stent placement History of cardiac catheterization History of partial colectomy Family History Family History Other Family history non-contributory Social History Social History Social History: Surrogate medical decision maker: Clarita Hobbs, mother. Code status: Full code. Smoking status: Current every day smoker Alcohol intake: unknown Substance use: unknown Do You Feel Safe in your Home?: Yes Lack of Transportation: No Lack of Food: Never True Current Housing: I Have Housing Concerned About Future Housing: No Difficulty Paying Gas/Electric Bills: No Difficulty Paying for Meds: No Currently Unemployed: No Education: Decline to Answer Difficulty w/ Childcare or Family Care: No Additional living arrangements comments: Resident at [facility]. 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 Spiritual care concerns: No Meds Home Medications and Allergies Home Medications ?Medication ?Instructions ?Recorded ?Confirmed ?Type Lactobacillus acidophilus 2,000 mmu cells PO BID 11/07/23 11/07/23 History acetaminophen 325 mg tablet 650 mg PO Q8H PRN Pain, Mild 11/07/23 11/07/23 History albuterol sulfate 90 mcg/actuation 2 puff inhalation Q4H PRN Wheezing 11/07/23 11/07/23 History aerosol inhaler albuterol sulfate 90 mcg/actuation 2 puff inhalation Q6H PRN Wheezing 11/07/23 11/07/23 History aerosol inhaler aspirin 81 mg tablet,delayed 81 mg PO DAILY 11/07/23 11/07/23 History release brimonidine 0.15 %-dorzolamide 2 % 1 drp ophthalmic (eye) TID 11/07/23 11/07/23 History (PF) eye drops budesonide-formoterol HFA 160 2 puff inhalation Q12H 11/07/23 11/07/23 History mcg-4.5 mcg/actuation aerosol inhaler (Symbicort) cabergoline 0.5 mg tablet 0.5 mg PO 2XW 11/07/23 11/07/23 History carboxymethylcellulose sodium 0.5 1 drp EACH EYE QID PRN Dry Eyes 11/07/23 11/07/23 History % eye drops in a dropperette (Refresh Plus) carvedilol 3.125 mg tablet 3.125 mg PO BID 11/07/23 11/07/23 History cyclobenzaprine 5 mg tablet 5 mg PO TID PRN Muscle Spasticity 11/07/23 11/07/23 History dextromethorphan-guaifenesin 10 10 ml PO Q4-6H PRN Cough 11/07/23 11/07/23 History mg-100 mg/5 mL oral syrup ergocalciferol (vitamin D2) 1,250 1,250 mcg PO WEEKLY 11/07/23 11/07/23 History mcg (50,000 unit) capsule escitalopram oxalate 20 mg tablet 20 mg PO QAM 11/07/23 11/07/23 History gabapentin 100 mg capsule 200 mg PO TID 11/07/23 11/07/23 History glipizide 5 mg tablet 5 mg PO QAM 11/07/23 11/07/23 History hydrocodone 5 mg-acetaminophen 325 1 tablet PO Q6H PRN Pain, Mild 11/07/23 11/07/23 History mg tablet loperamide 2 mg capsule 2 mg PO Q6H PRN Diarrhea 11/07/23 11/07/23 History (Anti-Diarrheal (loperamide)) melatonin 5 mg tablet 5 mg PO HS 11/07/23 11/07/23 History ondansetron 4 mg disintegrating 4 mg PO Q4H PRN Nausea And Vomiting 11/07/23 11/07/23 History tablet polyethylene glycol 3350 17 17 g PO PRN PRN Constipation 11/07/23 11/07/23 History gram/dose oral powder rosuvastatin 40 mg tablet 40 mg PO QHS 11/07/23 11/07/23 History sennosides 8.6 mg tablet (Senokot) 8.6 mg PO PRN PRN Constipation 11/07/23 11/07/23 History tamsulosin 0.4 mg capsule 0.4 mg PO QAM 11/07/23 11/07/23 History tiotropium bromide 2.5 2 puff inhalation QAM 11/07/23 11/07/23 History mcg/actuation mist for inhalation (Spiriva Respimat) amoxicillin 500 mg-potassium 2 tablet PO Q12H 1 week #28 tabs 01/07/24 Rx clavulanate 125 mg tablet (Augmentin) amoxicillin 500 mg-potassium 2 tablet PO Q12H 1 week #28 tabs 01/07/24 Rx clavulanate 125 mg tablet (Augmentin) Allergies Allergy/AdvReac Type Severity Reaction Status Date / Time hydralazine AdvReac Vomiting Verified 02/08/24 11:36 lisinopril AdvReac Rash Verified 02/08/24 11:36 metformin AdvReac Diarrhea Verified 02/08/24 11:36 pioglitazone AdvReac Nausea Verified 02/08/24 11:36 simvastatin AdvReac Rash Verified 02/08/24 11:36 Vital Signs Vital Signs - 24 hr 05/15/24 12:19 05/15/24 13:00 05/15/24 13:01 Temperature 97.6 F Pulse Rate 42 L 55 L Respiratory Rate 19 Blood Pressure 125/61 Pulse Oximetry 97 97 Oxygen Delivery Nasal Cannula Nasal Cannula Oxygen Flow Rate 4 4 Fraction of Inspired Oxygen 05/15/24 13:02 05/15/24 14:42 05/15/24 14:58 Temperature Pulse Rate 41 L Respiratory Rate 15 Blood Pressure 128/52 L Pulse Oximetry 97 100 97 Oxygen Delivery Nasal Cannula Nasal Cannula Oxygen Flow Rate 4 3 Fraction of Inspired Oxygen 32 05/15/24 14:58 05/15/24 16:01 05/15/24 16:23 Temperature Pulse Rate 47 L 43 L 40 L Respiratory Rate 16 13 18 Blood Pressure 108/46 L Pulse Oximetry 98 Oxygen Delivery Oxygen Flow Rate Fraction of Inspired Oxygen 05/15/24 16:30 05/15/24 16:44 05/15/24 16:53 Temperature Pulse Rate 42 L 49 L 42 L Respiratory Rate 15 14 18 Blood Pressure 95/44 L 94/42 L 95/44 L Pulse Oximetry 98 99 97 Oxygen Delivery Oxygen Flow Rate Fraction of Inspired Oxygen 05/15/24 17:06 05/15/24 18:03 05/15/24 19:09 Temperature Pulse Rate 41 L 40 L 58 L Respiratory Rate 19 14 20 Blood Pressure 132/51 L 123/57 L 150/51 H Pulse Oximetry 99 97 98 Oxygen Delivery Oxygen Flow Rate Fraction of Inspired Oxygen Exam Narrative: General: Fair appearing, generalized muscle weakness. HEENT: Atraumatic, PERRL, EOM, anicteric, moist mucosa. NECK: Supple. Lungs: Diminished bilaterally. Heart: RRR, no murmurs. Abdomen: Soft, non-tender, non-distended, +ve BS X4 Quadrants. Extremities: No cyanosis, left hemiparesis, no edema. Skin: Warm and dry with no lesions. Neuro: Left faiht-paresis. Psych: Calm and co-operative. H&P: Results Labs Labs: Short CBC 05/15/24 Range/Units 12:47 WBC 7.1 (4.5-10.0) K/mm3 Hgb 12.0 L (14.0-18.0) g/dL Hct 36.3 L (42.0-52.0) % Plt Count 177 (150-375) k/mm3 BMP 05/15/24 12:47 Sodium 140 Potassium 4.0 Chloride 101 Carbon Dioxide 35 H BUN 14 D Creatinine 1.30 Glucose 136 H Calcium 9.4 Cardiac Enzymes 05/15/24 05/15/24 Range/Units 12:47 15:40 Troponin I 0.017 0.017 (0.000-0.034) ng/mL Liver Function 05/15/24 Range/Units 12:47 Total Bilirubin 0.9 (0.2-1.3) mg/dL AST 19 (17-59) U/L ALT 17 (6-50) U/L Alkaline Phosphatase 95 (38-126) U/L Albumin 3.6 (3.5-5.1) g/dL Assessment and Plan Assessment and plan (1) Acute hypoxic respiratory failure: Code(s): J96.01 - Acute respiratory failure with hypoxia Status: Acute Assessment and Plan: - Likely related to below. - CTA chest PE negative for PE and negative for cardiopulmonary. - Acute respiratory virus PCR panel negative. - Currently on 3L/NC for sats > 90 %. - Wean O2 as [place]at for sats > 90 %. - Further mgt as below. (2) Acute exacerbation of chronic obstructive pulmonary disease: Code(s): J44.1 - Chronic obstructive pulmonary disease with (acute) exacerbation Status: Acute Assessment and Plan: - Given IV Solu-Medrol in ER. - Given duoneb updrafts in the ER. - Started on scheduled IV steroids and scheduled duoneb updrafts. - Started on PO azithromycin. - Resume symbicort. - Currently on 3L/NC and we'll wean as [place] for sats > 90 %. - Monitor closely symptoms progression. (3) Hypertension: Code(s): I10 - Essential (primary) hypertension Status: Acute Assessment and Plan: - Fairly well controlled. - Resume home meds. (4) Coronary artery disease: Code(s): I25.10 - Atherosclerotic heart disease of [place] coronary artery without angina pectoris Status: Acute Assessment and Plan: - Stable. - Resume aspirin, Coreg and statin. (5) Type 2 diabetes mellitus: Code(s): E11.9 - Type 2 diabetes mellitus without complications Status: Acute Assessment and Plan: - Started on SSI. - Adjust insulin as needed with steroids use. (6) History of CVA (cerebrovascular accident): Code(s): Z86.73 - Personal history of transient ischemic attack (TIA), and cerebral infarction without residual deficits Status: Acute Assessment and Plan: - Bedridden with residual left hemiparesis. - Continue aspirin and statin. - Assist with activity. (7) Obstructive sleep apnea: Code(s): G47.33 - Obstructive sleep apnea (adult) (pediatric) Status: Acute Assessment and Plan: - CPAP bedtime if able to tolerate. - Supplemental O2 bedtime if unable to tolerate CPAP. (8) Tobacco abuse: Code(s): Z72.0 - Tobacco use Status: Acute Assessment and Plan: - Encouraged with cessation. - Nicotine patch PRN. Quality VTE Prophylaxis VTE prophylaxis: mechanical ordered Hospitalist MIPS Advance Care Plan I have confirmed that the patient's Advanced Care Plan is present, code status is documented, or surrogate decision maker is listed in patient medical record.: Yes Medication Reconciliation I have utilized all available resources to obtain, update and review the patients current medications (includes all prescriptions, OTC, herbals, cannabis, and nutritional supplements).: Yes
--- NOTE | 2024-05-15 22:38 | ADMGEN ---
This patient, Brent Higginbotham, was admitted to [facility] Surg Room 307-01. Patient/family oriented to hospital policies and general routines including ID bracelet, bed and alarms, visiting hours, pain management, procedures, bathroom and other care routines, personal items, smoking policy, room service/diet, and visiting hours. Information on how to activate the Rapid Response Team has been discussed. Patient/Family are encouraged to report perceived risks to care and to ask questions if they do not understand what they are told or what they should do.
[2024-05-16] VITALS (16 sets, daily range): BP systolic 130–146; BP diastolic 49–71; PULSE 45–62; RESP 16–22; TEMP 35.8–36.6; O2SAT 92–96; BMI 34.0
[2024-05-16] MEDS: ACETAMINOPHEN 325 MG TABLET 650 MG PO ×2 (00:37→08:29)
[2024-05-16] MEDS: methylPREDNISolone SOD SUCC 125 MG VIAL 60 MG IV PUSH ×4 (00:45→17:49)
[2024-05-16] MEDS: IPRATROPIUM 0.5 MG/ALBUTEROL SULFATE 2.5 MG AMPUL.NEB 3 ML INHALATION ×3 (02:17→20:00)
[2024-05-16] MEDS: BENZONATATE 100 MG CAPSULE PO ×2 (03:06→08:36)
[2024-05-16] MEDS: MELATONIN 5 MG TABLET PO ×2 (03:06→21:17)
[2024-05-16] MEDS: FLUTICASONE/SALMETEROL 115-21 MCG INHALER 1 PUFF 2 PUFF INHALATION ×2 (06:24→20:00)
[2024-05-16 08:28] LABS: Glucose Point of Care 236 mg/dl (65-105)
[2024-05-16] MEDS: ESCITALOPRAM OXALATE 10 MG TABLET 20 MG PO (08:29)
[2024-05-16] MEDS: CYCLOBENZAPRINE HCL 5 MG TABLET PO (08:29)
[2024-05-16] MEDS: AZITHROMYCIN 250 MG TABLET 500 MG PO (08:29)
[2024-05-16] MEDS: TAMSULOSIN HCL 0.4 MG CAPSULE PO (08:29)
[2024-05-16] MEDS: GABAPENTIN 100 MG CAPSULE 200 MG PO ×3 (08:29→17:46)
[2024-05-16] MEDS: ASPIRIN 81 MG ENTERIC TABLET PO (08:29)
[2024-05-16] MEDS: DORZOLAMIDE HCL 2% OPHTH DROPS 1 DROP EACH EYE ×3 (08:32→17:49)
[2024-05-16] MEDS: BRIMONIDINE TARTRATE 0.15% 5 ML OPHTH SOLN 1 DROP EACH EYE ×3 (08:32→17:49)
[2024-05-16] MEDS: UMECLIDINIUM BROMIDE 62.5 MCG ELLIPTA 1 PUFF INHALATION (09:20)
[2024-05-16 11:56] LABS: Glucose Point of Care 390 mg/dl (65-105)
--- NOTE | 2024-05-16 12:21 | PM.IMPN ---
Progress Note: A&P Assessment and Plan (1) Acute hypoxic respiratory failure: Code(s): J96.01 - Acute respiratory failure with hypoxia Status: Acute Assessment and Plan: - Likely related to below. - CTA chest PE negative for PE and negative for cardiopulmonary. - Acute respiratory virus PCR panel negative. - Currently on 3L/NC for sats > 90 %. - Wean O2 as [place] for sats > 90 %. - Further mgt as below. (2) Acute exacerbation of chronic obstructive pulmonary disease: Code(s): J44.1 - Chronic obstructive pulmonary disease with (acute) exacerbation Status: Acute Assessment and Plan: - Given IV Solu-Medrol in ER. - Given duoneb updrafts in the ER. - Started on scheduled IV steroids and scheduled duoneb updrafts. - Started on PO azithromycin. - Resume symbicort. - Currently on 3L/NC and we'll wean as [place] for sats > 90 %. - Monitor closely symptoms progression. (3) Hypertension: Code(s): I10 - Essential (primary) hypertension Status: Acute Assessment and Plan: - Fairly well controlled. - Resume home meds. (4) Coronary artery disease: Code(s): I25.10 - Atherosclerotic heart disease of [place] coronary artery without angina pectoris Status: Acute Assessment and Plan: - Stable. - Resume aspirin, Coreg and statin. (5) Type 2 diabetes mellitus: Code(s): E11.9 - Type 2 diabetes mellitus without complications Status: Acute Assessment and Plan: - Started on SSI. - Adjust insulin as needed with steroids use. (6) History of CVA (cerebrovascular accident): Code(s): Z86.73 - Personal history of transient ischemic attack (TIA), and cerebral infarction without residual deficits Status: Acute Assessment and Plan: - Bedridden with residual left hemiparesis. - Continue aspirin and statin. - Assist with activity. (7) Obstructive sleep apnea: Code(s): G47.33 - Obstructive sleep apnea (adult) (pediatric) Status: Acute Assessment and Plan: - CPAP bedtime if able to tolerate. - Supplemental O2 bedtime if unable to tolerate CPAP. (8) Tobacco abuse: Code(s): Z72.0 - Tobacco use Status: Acute Assessment and Plan: - Encouraged with cessation. - Nicotine patch PRN. Plan DVT prophylaxis on Sq Lovenox Subjective Date/time seen: 05/16/24 12:21 Interval history: Comfortable at bedside still requiring oxygen monitor one more day Review of Systems Review of Systems: All systems reviewed & are unremarkable except as noted in HPI and below Exam Narrative: General: Fair appearing, generalized muscle weakness. HEENT: Atraumatic, PERRL, EOM, anicteric, moist mucosa. NECK: Supple. Lungs: Diminished bilaterally. Heart: RRR, no murmurs. Abdomen: Soft, non-tender, non-distended, +ve BS X4 Quadrants. Extremities: No cyanosis, left hemiparesis, no edema. Skin: Warm and dry with no lesions. Neuro: Left faith-paresis. Psych: Calm and co-operative. Objective Data Vital Signs Vital Signs: Vital Signs - 24 hr 05/15/24 13:00 05/15/24 13:01 05/15/24 13:02 Temperature Pulse Rate 55 L Respiratory Rate Blood Pressure Pulse Oximetry 97 97 Oxygen Delivery Nasal Cannula Nasal Cannula Oxygen Flow Rate 4 4 Fraction of Inspired Oxygen 05/15/24 14:42 05/15/24 14:58 05/15/24 14:58 Temperature Pulse Rate 41 L 47 L Respiratory Rate 15 16 Blood Pressure 128/52 L Pulse Oximetry 100 97 Oxygen Delivery Nasal Cannula Oxygen Flow Rate 3 Fraction of Inspired Oxygen 32 05/15/24 16:01 05/15/24 16:23 05/15/24 16:30 Temperature Pulse Rate 43 L 40 L 42 L Respiratory Rate 13 18 15 Blood Pressure 108/46 L 95/44 L Pulse Oximetry 98 98 Oxygen Delivery Oxygen Flow Rate Fraction of Inspired Oxygen 05/15/24 16:44 05/15/24 16:53 05/15/24 17:06 Temperature Pulse Rate 49 L 42 L 41 L Respiratory Rate 14 18 19 Blood Pressure 94/42 L 95/44 L 132/51 L Pulse Oximetry 99 97 99 Oxygen Delivery Oxygen Flow Rate Fraction of Inspired Oxygen 05/15/24 18:03 05/15/24 19:09 05/15/24 23:11 Temperature 98.0 F Pulse Rate 40 L 58 L 43 L Respiratory Rate 14 20 18 Blood Pressure 123/57 L 150/51 H 100/60 Pulse Oximetry 97 98 96 Oxygen Delivery Oxygen Flow Rate Fraction of Inspired Oxygen 05/16/24 02:18 05/16/24 02:26 05/16/24 02:42 Temperature Pulse Rate 47 L 45 L Respiratory Rate 20 20 Blood Pressure Pulse Oximetry 94 Oxygen Delivery Nasal Cannula Oxygen Flow Rate 4 Fraction of Inspired Oxygen 05/16/24 04:00 05/16/24 05:49 05/16/24 06:25 Temperature 97.9 F Pulse Rate 48 L 62 49 L Respiratory Rate 22 H 20 Blood Pressure 146/71 H Pulse Oximetry 93 Oxygen Delivery Oxygen Flow Rate Fraction of Inspired Oxygen 05/16/24 06:36 05/16/24 06:39 05/16/24 09:21 Temperature Pulse Rate 45 L 48 L Respiratory Rate 20 Blood Pressure Pulse Oximetry 96 Oxygen Delivery Room Air Oxygen Flow Rate Fraction of Inspired Oxygen 05/16/24 09:21 Temperature Pulse Rate 52 L Respiratory Rate 20 Blood Pressure Pulse Oximetry Oxygen Delivery Oxygen Flow Rate Fraction of Inspired Oxygen Intake/Output Intake/Output: Intake & Output 05/13/24 05/14/24 05/15/24 05/16/24 23:59 23:59 23:59 23:59 Intake Total 1050 800 Output Total 200 Balance 1050 600 Meds/Results Medications: Active Medications Generic Name Dose Route Start Last Admin Trade Name Freq PRN Reason Stop Dose Admin Acetaminophen 650 mg 05/15/24 16:06 05/16/24 08:29 Acetaminophen 325 Mg Tablet PO 650 mg Q4H PRN Administration Mild Pain (1-3) or Fever Albuterol/Ipratropium 3 ml 05/16/24 02:00 05/16/24 06:24 Ipratropium 0.5 Mg/Albuterol Sulfate 2.5 Mg Ampul.Neb 3 Ml INHALATION 3 ml Q6HRT BERNARDO Administration Artificial Tears 1 drop 05/16/24 02:48 Artificial Tears Ophth Soln 15 Ml Bottle EACH EYE QID PRN Dry Eye(s) Aspirin 81 mg 05/16/24 09:00 05/16/24 08:29 Aspirin 81 Mg Enteric Tablet PO 81 mg DAILY BERNARDO Administration Azithromycin 500 mg 05/16/24 09:00 05/16/24 08:29 Azithromycin 250 Mg Tablet PO 500 mg DAILY BERNARDO Administration Benzonatate 100 mg 05/16/24 02:17 05/16/24 08:36 Benzonatate 100 Mg Capsule PO 100 mg TID PRN Administration cough Brimonidine Tartrate 1 drop 05/16/24 09:00 05/16/24 08:32 Brimonidine Tartrate 0.15% 5 Ml Ophth Soln EACH EYE 1 drop TID BERNARDO Administration Cyclobenzaprine HCl 5 mg 05/16/24 02:17 05/16/24 08:29 Cyclobenzaprine Hcl 5 Mg Tablet PO 5 mg TID PRN Administration Muscle Spasticity Dextrose 12.5 gm 05/16/24 11:28 Dextrose 50% 25 Gm/50 Ml Syringe IV PUSH PRN PRN Hypoglycemia Protocol Dorzolamide HCl 1 drop 05/16/24 09:00 05/16/24 08:32 Dorzolamide Hcl 2% Ophth Drops EACH EYE 1 drop TID BERNARDO Administration Escitalopram Oxalate 20 mg 05/16/24 09:00 05/16/24 08:29 Escitalopram Oxalate 10 Mg Tablet PO 20 mg QAM BERNARDO Administration Gabapentin 200 mg 05/16/24 09:00 05/16/24 08:29 Gabapentin 100 Mg Capsule PO 200 mg TID BERNARDO Administration Glucagon 1 mg 05/16/24 11:28 Glucagon For Inj 1 Mg Vial IM PRN PRN Hypoglycemia Protocol Glucose 15 gm 05/16/24 11:28 Glucose Oral Gel 15 Gm Of Glucse In 37.5 Gm Tube PO PRN PRN Hypoglycemia Protocol Dextrose 1,000 mls @ 100 mls/hr 05/16/24 11:28 Dextrose 5% 1,000 Ml IVPB PRN PRN Hypoglycemia Protocol Insulin Aspart 4 - 8 units 05/16/24 12:00 Insulin Aspart (*Bkc) 100 Units/Ml SUB-Q TIDWM BERNARDO Protocol Melatonin 5 mg 05/16/24 02:25 05/16/24 03:06 Melatonin 5 Mg Tablet PO 5 mg HS BERNARDO Administration Methylprednisolone Sodium Succinate 60 mg 05/16/24 00:00 05/16/24 06:31 Methylprednisolone Sod Succ 125 Mg Vial IV PUSH 60 mg Q6HR BERNARDO Administration Miscellaneous Information 1 each 05/16/24 00:01 (Cabergoline 0.5 Mg Tablet) Is Nonformulary, Can Patient Bring From Home? XX 06/15/24 00:00 CLARIFY BERNARDO Non-Formulary Medication 0.5 mg 05/16/24 02:30 Cabergoline PO 06/15/24 02:29 2XW BERNARDO Ondansetron HCl 4 mg 05/15/24 16:06 Ondansetron Inj 4 Mg/2 Ml Vial IV PUSH Q4H PRN Nausea Rosuvastatin Calcium 40 mg 05/16/24 21:00 Rosuvastatin 20 Mg Tablet PO QHS BERNARDO Fluticasone/Salmeterol 2 puff 05/16/24 08:00 05/16/24 06:24 Fluticasone/Salmeterol 115-21 Mcg Inhaler 1 Puff INHALATION 2 puff Q12HRT BERNARDO Administration Senna 8.6 mg 05/16/24 02:17 Sennosides 8.6 Mg Tablet PO PRN PRN Constipation Tamsulosin HCl 0.4 mg 05/16/24 09:00 05/16/24 08:29 Tamsulosin Hcl 0.4 Mg Capsule PO 0.4 mg QAM BERNARDO Administration Umeclidinium [place] 1 puff 05/16/24 08:00 05/16/24 09:20 Umeclidinium [place] 62.5 Mcg Ellipta INHALATION 1 puff DAILYRT BERNARDO Administration Radiology Results: ITS Impressions Chest X-Ray 05/15/24 13:22 IMPRESSION: 1. Cardiomegaly. Chest CTA 05/15/24 14:29 IMPRESSION: 1. No pulmonary embolism. 2. No acute cardiopulmonary 3. Bilateral adrenal adenomas. No follow-up is advised. Pathology unless clinically warranted.. Labs Labs: Laboratory Results - last 24 hr 05/15/24 05/15/24 05/15/24 12:47 14:09 15:40 WBC 7.1 RBC 4.16 L Hgb 12.0 L Hct 36.3 L MCV 87.3 MCH 28.8 MCHC 33.1 RDW 13.7 Plt Count 177 MPV 8.5 Immature Gran % (Auto) 0.6 H Neut % (Auto) 72.2 Lymph % (Auto) 15.9 L [place] % (Auto) 6.1 Eos % (Auto) 4.8 H Baso % (Auto) 0.4 Lymph # (Auto) 1.13 [place] # (Auto) 0.4 Eos # (Auto) 0.3 Baso # (Auto) 0.0 Abs Immat Gran (auto) 0.04 H Absolute Neuts (auto) 5.1 Absolute Nucleated RBC 0.000 Nucleated RBC % 0.0 Sodium 140 Potassium 4.0 Chloride 101 Carbon Dioxide 35 H Anion Gap 4 BUN 14 D Creatinine 1.30 Estim Creat Clear Calc 62 Estimated GFR 55 L Glucose 136 H POC Capillary Glucose Calcium 9.4 Total Bilirubin 0.9 AST 19 ALT 17 Alkaline Phosphatase 95 Troponin I 0.017 0.017 NT-Pro-B Natriuret Pep 1420 H Total Protein 7.0 Albumin 3.6 Influenza A (RT-PCR) Negative Influenza B (RT-PCR) Negative RSV (RT-PCR) Negative SARS-CoV-2 RNA (RT-PCR) Negative 05/16/24 05/16/24 08:19 11:25 WBC RBC Hgb Hct MCV MCH MCHC RDW Plt Count MPV Immature Gran % (Auto) Neut % (Auto) Lymph % (Auto) [place] % (Auto) Eos % (Auto) Baso % (Auto) Lymph # (Auto) [place] # (Auto) Eos # (Auto) Baso # (Auto) Abs Immat Gran (auto) Absolute Neuts (auto) Absolute Nucleated RBC Nucleated RBC % Sodium Potassium Chloride Carbon Dioxide Anion Gap BUN Creatinine Estim Creat Clear Calc Estimated GFR Glucose POC Capillary Glucose 236 H 390 H Calcium Total Bilirubin AST ALT Alkaline Phosphatase Troponin I NT-Pro-B Natriuret Pep Total Protein Albumin Influenza A (RT-PCR) Influenza B (RT-PCR) RSV (RT-PCR) SARS-CoV-2 RNA (RT-PCR) Quality VTE Prophylaxis VTE prophylaxis: mechanical ordered
[2024-05-16] MEDS: INSULIN ASPART (*BKC) 100 UNITS/ML SUB-Q ×2 (13:24→17:46)
[2024-05-16 17:08] LABS: Glucose Point of Care 412 mg/dl (65-105)
[2024-05-16] MEDS: INSULIN GLARGINE (*BKC) 100 UNITS/ML 10 UNITS SUB-Q (17:48)
[2024-05-16 20:21] LABS: Glucose Point of Care 457 mg/dl (65-105)
[2024-05-16] MEDS: INSULIN ASPART (*BKC) 100 UNITS/ML 15 UNITS SUB-Q (21:17)
[2024-05-16] MEDS: ROSUVASTATIN 20 MG TABLET 40 MG PO (21:17)
[2024-05-17] VITALS (20 sets, daily range): BP systolic 132–167; BP diastolic 50–69; PULSE 43–63; RESP 18–20; TEMP 36.1–36.6; O2SAT 90–99
[2024-05-17] MEDS: methylPREDNISolone SOD SUCC 125 MG VIAL 60 MG IV PUSH ×3 (00:03→11:37)
[2024-05-17] MEDS: IPRATROPIUM 0.5 MG/ALBUTEROL SULFATE 2.5 MG AMPUL.NEB 3 ML INHALATION ×4 (03:09→20:51)
[2024-05-17] MEDS: UMECLIDINIUM BROMIDE 62.5 MCG ELLIPTA 1 PUFF INHALATION (07:05)
[2024-05-17] MEDS: FLUTICASONE/SALMETEROL 115-21 MCG INHALER 1 PUFF 2 PUFF INHALATION ×2 (07:05→20:51)
[2024-05-17] MEDS: INSULIN ASPART (*BKC) 100 UNITS/ML SUB-Q ×3 (08:46→16:46)
[2024-05-17] MEDS: ENOXAPARIN 40 MG/0.4 ML SYRINGE SUB-Q (08:49)
[2024-05-17 08:50] LABS: Glucose Point of Care 304 mg/dl (65-105)
[2024-05-17] MEDS: DORZOLAMIDE HCL 2% OPHTH DROPS 1 DROP EACH EYE ×3 (08:51→16:49)
[2024-05-17] MEDS: BRIMONIDINE TARTRATE 0.15% 5 ML OPHTH SOLN 1 DROP EACH EYE ×3 (08:51→16:49)
[2024-05-17] MEDS: AZITHROMYCIN 250 MG TABLET 500 MG PO (08:54)
[2024-05-17] MEDS: GABAPENTIN 100 MG CAPSULE 200 MG PO ×3 (08:54→16:49)
[2024-05-17] MEDS: TAMSULOSIN HCL 0.4 MG CAPSULE PO (08:54)
[2024-05-17] MEDS: ASPIRIN 81 MG ENTERIC TABLET PO (08:54)
[2024-05-17] MEDS: ESCITALOPRAM OXALATE 10 MG TABLET 20 MG PO (08:55)
[2024-05-17 11:52] LABS: Glucose Point of Care 329 mg/dl (65-105)
[2024-05-17] MEDS: BENZONATATE 100 MG CAPSULE PO (12:06)
--- NOTE | 2024-05-17 13:24 | P.PNIM_ITS ---
Progress Note: A&P Assessment and Plan (1) Acute hypoxic respiratory failure: Code(s): J96.01 - Acute respiratory failure with hypoxia Status: Acute Assessment and Plan: - Likely related to below. - CTA chest PE negative for PE and negative for cardiopulmonary. - Acute respiratory virus PCR panel negative. - Currently on 3L/NC for sats > 90 %. - Wean O2 as [place] for sats > 90 %. - Further mgt as below. (2) Acute exacerbation of chronic obstructive pulmonary disease: Code(s): J44.1 - Chronic obstructive pulmonary disease with (acute) exacerbation Status: Acute Assessment and Plan: - Given IV Solu-Medrol in ER. COntinue Bronchodilators and Start PO Prednisone. S/p IV steroid - Started on PO azithromycin. - Currently on 2L/NC and we'll wean as [place] for sats > 90 %. - Monitor closely symptoms progression Patient reported he was supposed to be using 1 liter oxygen at nighttime at the assisted but it was never started because he did not have prescription Maybe patient may now be on oxygen from here (3) Hypertension: Code(s): I10 - Essential (primary) hypertension Status: Acute Assessment and Plan: - Fairly well controlled. - Resume home meds. (4) Coronary artery disease: Code(s): I25.10 - Atherosclerotic heart disease of [place] coronary artery without angina pectoris Status: Acute Assessment and Plan: - Stable. - Resume aspirin, Coreg and statin. (5) Type 2 diabetes mellitus: Code(s): E11.9 - Type 2 diabetes mellitus without complications Status: Acute Assessment and Plan: - Started on SSI. - Adjust insulin as needed with steroids use. (6) History of CVA (cerebrovascular accident): Code(s): Z86.73 - Personal history of transient ischemic attack (TIA), and cerebral infarction without residual deficits Status: Acute Assessment and Plan: - Bedridden with residual left hemiparesis. - Continue aspirin and statin. - Assist with activity. (7) Obstructive sleep apnea: Code(s): G47.33 - Obstructive sleep apnea (adult) (pediatric) Status: Acute Assessment and Plan: - CPAP bedtime if able to tolerate. - Supplemental O2 bedtime if unable to tolerate CPAP. (8) Tobacco abuse: Code(s): Z72.0 - Tobacco use Status: Acute Assessment and Plan: - Encouraged with cessation. - Nicotine patch PRN. Plan DVT prophylaxis on Sq Lovenox Subjective Date/time seen: 05/17/24 13:24 Interval history: Comfortable at bedside still on 2 liters oxygen, will monitor one more day Review of Systems Review of Systems: All systems reviewed & are unremarkable except as noted in HPI and below Exam Narrative: General: Fair appearing, generalized muscle weakness. HEENT: Atraumatic, PERRL, EOM, anicteric, moist mucosa. NECK: Supple. Lungs: Diminished bilaterally. Heart: RRR, no murmurs. Abdomen: Soft, non-tender, non-distended, +ve BS X4 Quadrants. Extremities: No cyanosis, left hemiparesis, no edema. Skin: Warm and dry with no lesions. Neuro: Left faith-paresis. Psych: Calm and co-operative. Objective Data Vital Signs Vital Signs: Vital Signs - 24 hr 05/16/24 14:00 05/16/24 16:00 05/16/24 20:00 Temperature 96.5 F L Pulse Rate 50 L 61 Respiratory Rate 18 Blood Pressure 130/49 L Pulse Oximetry 92 94 Oxygen Delivery Nasal Cannula Oxygen Flow Rate 4 05/16/24 20:00 05/16/24 20:00 05/16/24 20:00 Temperature Pulse Rate 45 L 45 L Respiratory Rate 16 Blood Pressure Pulse Oximetry 94 Oxygen Delivery Nasal Cannula Oxygen Flow Rate 4 05/16/24 20:10 05/16/24 20:40 05/17/24 00:00 Temperature 97.6 F Pulse Rate 47 L 50 L 45 L Respiratory Rate 18 20 Blood Pressure 136/50 L Pulse Oximetry 94 Oxygen Delivery Oxygen Flow Rate 05/17/24 03:09 05/17/24 03:18 05/17/24 04:00 Temperature Pulse Rate 43 L 44 L 43 L Respiratory Rate 18 18 Blood Pressure Pulse Oximetry Oxygen Delivery Oxygen Flow Rate 05/17/24 04:39 05/17/24 07:05 05/17/24 07:05 Temperature 97.0 F L Pulse Rate 48 L 62 62 Respiratory Rate 20 18 18 Blood Pressure 132/60 Pulse Oximetry 90 93 Oxygen Delivery Nasal Cannula Oxygen Flow Rate 4 05/17/24 07:15 05/17/24 08:00 05/17/24 08:00 Temperature Pulse Rate 60 63 55 L Respiratory Rate 18 Blood Pressure Pulse Oximetry 93 Oxygen Delivery Nasal Cannula Oxygen Flow Rate 4 05/17/24 10:49 05/17/24 12:00 05/17/24 13:10 Temperature Pulse Rate 55 L 56 L 58 L Respiratory Rate 18 Blood Pressure Pulse Oximetry 93 Oxygen Delivery Nasal Cannula Oxygen Flow Rate 2 05/17/24 13:20 Temperature Pulse Rate 60 Respiratory Rate 18 Blood Pressure Pulse Oximetry Oxygen Delivery Oxygen Flow Rate Intake/Output Intake/Output: Intake & Output 05/14/24 05/15/24 05/16/24 05/17/24 23:59 23:59 23:59 23:59 Intake Total 1050 1280 605 Output Total 450 600 Balance 1050 830 5 Meds/Results Medications: Active Medications Generic Name Dose Route Start Last Admin Trade Name Freq PRN Reason Stop Dose Admin Acetaminophen 650 mg 05/15/24 16:06 05/16/24 08:29 Acetaminophen 325 Mg Tablet PO 650 mg Q4H PRN Administration Mild Pain (1-3) or Fever Albuterol/Ipratropium 3 ml 05/16/24 02:00 05/17/24 13:10 Ipratropium 0.5 Mg/Albuterol Sulfate 2.5 Mg Ampul.Neb 3 Ml INHALATION 3 ml Q6HRT BERNARDO Administration Artificial Tears 1 drop 05/16/24 02:48 Artificial Tears Ophth Soln 15 Ml Bottle EACH EYE QID PRN Dry Eye(s) Aspirin 81 mg 05/16/24 09:00 05/17/24 08:54 Aspirin 81 Mg Enteric Tablet PO 81 mg DAILY BERNARDO Administration Azithromycin 500 mg 05/16/24 09:00 05/17/24 08:54 Azithromycin 250 Mg Tablet PO 500 mg DAILY BERNADRO Administration Benzonatate 100 mg 05/16/24 02:17 05/17/24 12:06 Benzonatate 100 Mg Capsule PO 100 mg TID PRN Administration cough Brimonidine Tartrate 1 drop 05/16/24 09:00 05/17/24 12:01 Brimonidine Tartrate 0.15% 5 Ml Ophth Soln EACH EYE 1 drop TID BERNARDO Administration Cyclobenzaprine HCl 5 mg 05/16/24 02:17 05/16/24 08:29 Cyclobenzaprine Hcl 5 Mg Tablet PO 5 mg TID PRN Administration Muscle Spasticity Dextrose 12.5 gm 05/16/24 11:28 Dextrose 50% 25 Gm/50 Ml Syringe IV PUSH PRN PRN Hypoglycemia Protocol Dorzolamide HCl 1 drop 05/16/24 09:00 05/17/24 12:01 Dorzolamide Hcl 2% Ophth Drops EACH EYE 1 drop TID BERNARDO Administration Enoxaparin Sodium 40 mg 05/17/24 09:00 05/17/24 08:49 Enoxaparin 40 Mg/0.4 Ml Syringe SUB-Q 40 mg DAILY BERNARDO Administration Escitalopram Oxalate 20 mg 05/16/24 09:00 05/17/24 08:55 Escitalopram Oxalate 10 Mg Tablet PO 20 mg QAM BERNARDO Administration Gabapentin 200 mg 05/16/24 09:00 05/17/24 12:00 Gabapentin 100 Mg Capsule PO 200 mg TID BERNARDO Administration Glucagon 1 mg 05/16/24 11:28 Glucagon For Inj 1 Mg Vial IM PRN PRN Hypoglycemia Protocol Glucose 15 gm 05/16/24 11:28 Glucose Oral Gel 15 Gm Of Glucse In 37.5 Gm Tube PO PRN PRN Hypoglycemia Protocol Dextrose 1,000 mls @ 100 mls/hr 05/16/24 11:28 Dextrose 5% 1,000 Ml IVPB PRN PRN Hypoglycemia Protocol Insulin Aspart 4 - 8 units 05/16/24 12:00 05/17/24 11:56 Insulin Aspart (*Bkc) 100 Units/Ml SUB-Q 6 units TIDWM BERNARDO Administration Protocol Insulin Glargine 10 units 05/16/24 17:15 05/16/24 17:48 Insulin Glargine (*Bkc) 100 Units/Ml SUB-Q 10 units HS BERNARDO Administration Melatonin 5 mg 05/16/24 02:25 05/16/24 21:17 Melatonin 5 Mg Tablet PO 5 mg HS BERNARDO Administration Methylprednisolone Sodium Succinate 60 mg 05/16/24 00:00 05/17/24 11:37 Methylprednisolone Sod Succ 125 Mg Vial IV PUSH 60 mg Q6HR BERNARDO Administration Miscellaneous Information 1 each 05/16/24 00:01 (Cabergoline 0.5 Mg Tablet) Is Nonformulary, Can Patient Bring From Home? XX 06/15/24 00:00 CLARIFY BERNARDO Non-Formulary Medication 0.5 mg 05/16/24 02:30 Cabergoline PO 06/15/24 02:29 2XW BERNARDO Ondansetron HCl 4 mg 05/15/24 16:06 Ondansetron Inj 4 Mg/2 Ml Vial IV PUSH Q4H PRN Nausea Rosuvastatin Calcium 40 mg 05/16/24 21:00 05/16/24 21:17 Rosuvastatin 20 Mg Tablet PO 40 mg QHS BERNARDO Administration Fluticasone/Salmeterol 2 puff 05/16/24 08:00 05/17/24 07:05 Fluticasone/Salmeterol 115-21 Mcg Inhaler 1 Puff INHALATION 2 puff Q12HRT BERNARDO Administration Senna 8.6 mg 05/16/24 02:17 Sennosides 8.6 Mg Tablet PO PRN PRN Constipation Tamsulosin HCl 0.4 mg 05/16/24 09:00 05/17/24 08:54 Tamsulosin Hcl 0.4 Mg Capsule PO 0.4 mg QAM BERNARDO Administration Umeclidinium [place] 1 puff 05/16/24 08:00 05/17/24 07:05 Umeclidinium [place] 62.5 Mcg Ellipta INHALATION 1 puff DAILYRT BERNARDO Administration Radiology Results: ITS Impressions Chest X-Ray 05/15/24 13:22 IMPRESSION: 1. Cardiomegaly. Chest CTA 05/15/24 14:29 IMPRESSION: 1. No pulmonary embolism. 2. No acute cardiopulmonary 3. Bilateral adrenal adenomas. No follow-up is advised. Pathology unless clinically warranted.. Labs Labs: Laboratory Results - last 24 hr 05/16/24 05/16/24 05/17/24 16:53 19:52 08:40 POC Capillary Glucose 412 H 457 H 304 H 05/17/24 11:48 POC Capillary Glucose 329 H Quality VTE Prophylaxis VTE prophylaxis: mechanical ordered
[2024-05-17] MEDS: predniSONE 20 MG TABLET 40 MG PO (13:48)
[2024-05-17 16:09] LABS: Glucose Point of Care 404 mg/dl (65-105)
[2024-05-17] MEDS: ACETAMINOPHEN 325 MG TABLET 650 MG PO (18:39)
[2024-05-17] MEDS: INSULIN GLARGINE (*BKC) 100 UNITS/ML 15 UNITS SUB-Q (20:56)
[2024-05-17 20:57] LABS: Glucose Point of Care 381 mg/dl (65-105)
[2024-05-17] MEDS: MELATONIN 5 MG TABLET PO (20:57)
[2024-05-17] MEDS: ROSUVASTATIN 20 MG TABLET 40 MG PO (20:57)
[2024-05-18] VITALS (19 sets, daily range): BP systolic 119–155; BP diastolic 58–82; PULSE 43–60; RESP 16–22; TEMP 36.3–36.6; O2SAT 86–100
[2024-05-18] MEDS: IPRATROPIUM 0.5 MG/ALBUTEROL SULFATE 2.5 MG AMPUL.NEB 3 ML INHALATION ×4 (02:02→20:08)
[2024-05-18] MEDS: BENZONATATE 100 MG CAPSULE PO (02:29)
[2024-05-18 07:16] LABS: Glucose Point of Care 339 mg/dl (65-105)
[2024-05-18] MEDS: INSULIN ASPART (*BKC) 100 UNITS/ML SUB-Q ×2 (08:19→17:09)
[2024-05-18] MEDS: GABAPENTIN 100 MG CAPSULE 200 MG PO ×3 (08:20→17:34)
[2024-05-18] MEDS: predniSONE 20 MG TABLET 40 MG PO (08:20)
[2024-05-18] MEDS: FLUTICASONE/SALMETEROL 115-21 MCG INHALER 1 PUFF 2 PUFF INHALATION ×2 (08:20→20:09)
[2024-05-18] MEDS: UMECLIDINIUM BROMIDE 62.5 MCG ELLIPTA 1 PUFF INHALATION (08:20)
[2024-05-18] MEDS: AZITHROMYCIN 250 MG TABLET 500 MG PO (08:20)
[2024-05-18] MEDS: ASPIRIN 81 MG ENTERIC TABLET PO (08:21)
[2024-05-18] MEDS: TAMSULOSIN HCL 0.4 MG CAPSULE PO (08:21)
[2024-05-18] MEDS: ESCITALOPRAM OXALATE 10 MG TABLET 20 MG PO (08:21)
[2024-05-18 08:23] LABS: Basophils Percent Auto 0.1 % (0.2-1.2); Hematocrit 33.9 % (42.0-52.0); Hemoglobin 11.1 g/dL (14.0-18.0); Immature Granulocyte Absolute 0.13 K/mm3 (0.00-0.031); Immature Granulocyte Percent A 1.5 % (0-0.5); Lymphocytes Absolute Auto 0.73 K/mm3 (0.9-3.2); Lymphocytes Percent Auto 8.3 % (18.3-44.2); Mean Corpuscular HGB Conc 32.7 g/dl (32-36); Mean Corpuscular Hemoglobin 28.8 pg (26-34); Mean Corpuscular Volume 87.8 fl (80-100); Mean Platelet Volume 8.9 fl (7.4-10.4); Monocytes Absolute Auto 0.5 K/mm3 (0.1-0.6); Monocytes Percent Auto 5.1 % (2.6-8.5); Neutrophils Absolute Auto 7.5 K/mm3 (1.3-6.7); Platelet Count Result 190 k/mm3 (150-375); Red Blood Count 3.86 M/mm3 (4.6-6.20); Red Cell Distribution Width 13.6 % (11.5-14.5); White Blood Count 8.8 K/mm3 (4.5-10.0)
[2024-05-18] MEDS: ENOXAPARIN 40 MG/0.4 ML SYRINGE SUB-Q (08:26)
[2024-05-18 08:41] LABS: Alanine Aminotransferase 16 U/L (6-50); Albumin Level 3.4 g/dL (3.5-5.1); Alkaline Phosphatase 67 U/L (38-126); Anion Gap 5 mmol/L (4-12); Aspartate Amino Transferase 17 U/L (17-59); Bilirubin,Total 0.6 mg/dL (0.2-1.3); Blood Urea Nitrogen 34 mg/dL (9-20); Calcium 8.9 mg/dL (8.4-10.2); Carbon Dioxide 31 mmol/L (22-30); Chloride 100 mmol/L (98-107); Estimated CRCL calculation 64 ml/min; Estimated Glomerular Filt Rate 59; Glucose 331 mg/dL (65-110); Magnesium 1.9 mg/dL (1.6-2.3); Potassium 4.6 mmol/L (3.4-5.0); Sodium 136 mmol/L (137-145)
[2024-05-18] MEDS: BRIMONIDINE TARTRATE 0.15% 5 ML OPHTH SOLN 1 DROP EACH EYE ×3 (09:57→17:09)
[2024-05-18] MEDS: DORZOLAMIDE HCL 2% OPHTH DROPS 1 DROP EACH EYE ×3 (09:57→17:09)
--- NOTE | 2024-05-18 11:52 | PM.IMPN ---
Progress Note: A&P Assessment and Plan (1) Acute hypoxic respiratory failure: Code(s): J96.01 - Acute respiratory failure with hypoxia Status: Acute Assessment and Plan: - Likely related to below. - CTA chest PE negative for PE and negative for cardiopulmonary. - Acute respiratory virus PCR panel negative. - Currently on 3L/NC for sats > 90 %. - Wean O2 as montserrat for sats > 90 %. - Further mgt as below. (2) Acute exacerbation of chronic obstructive pulmonary disease: Code(s): J44.1 - Chronic obstructive pulmonary disease with (acute) exacerbation Status: Acute Assessment and Plan: - Given IV Solu-Medrol in ER. COntinue Bronchodilators and Start PO Prednisone. S/p IV steroid - Started on PO azithromycin. - Currently on 2L/NC and we'll wean as [place] for sats > 90 %. - Monitor closely symptoms progression Patient reported he was [facility] to be [facility] 1 liter [facility] but it was never started because he did not have prescription Maybe patient may now be on oxygen from here (3) Hypertension: Code(s): I10 - Essential (primary) hypertension Status: Acute Assessment and Plan: - Fairly well controlled. - Resume home meds. (4) Coronary artery disease: Code(s): I25.10 - Atherosclerotic heart disease of [place] coronary artery without angina pectoris Status: Acute Assessment and Plan: - Stable. - Resume aspirin, Coreg and statin. (5) Type 2 diabetes mellitus: Code(s): E11.9 - Type 2 diabetes mellitus without complications Status: Acute Assessment and Plan: Blood sugar elevated to 509 Started lantus 10 units and continue High Dose SSI (6) History of CVA (cerebrovascular accident): Code(s): Z86.73 - Personal history of transient ischemic attack (TIA), and cerebral infarction without residual deficits Status: Acute Assessment and Plan: - Bedridden with residual left hemiparesis. - Continue aspirin and statin. - Assist with activity. (7) Obstructive sleep apnea: Code(s): G47.33 - Obstructive sleep apnea (adult) (pediatric) Status: Acute Assessment and Plan: - CPAP bedtime if able to tolerate. - Supplemental O2 bedtime if unable to tolerate CPAP. (8) Tobacco abuse: Code(s): Z72.0 - Tobacco use Status: Acute Assessment and Plan: - Encouraged with cessation. - Nicotine patch PRN. Plan DVT prophylaxis on Sq Lovenox Awaiting blood sugar control Subjective Date/time seen: 05/18/24 11:52 Interval history: Comfortable at bedside Appears patient will need home oxygen now noted he was supposed to be on nighttime oxygen prior but was unable to get it at the prison Review of Systems Review of Systems: All systems reviewed & are unremarkable except as noted in HPI and below Exam Narrative: General: Fair appearing, generalized muscle weakness. HEENT: Atraumatic, PERRL, EOM, anicteric, moist mucosa. NECK: Supple. Lungs: Diminished bilaterally. Heart: RRR, no murmurs. Abdomen: Soft, non-tender, non-distended, +ve BS X4 Quadrants. Extremities: No cyanosis, left hemiparesis, no edema. Skin: Warm and dry with no lesions. Neuro: Left faith-paresis. Psych: Calm and co-operative. Objective Data Vital Signs Vital Signs: Vital Signs - 24 hr 05/17/24 12:00 05/17/24 13:10 05/17/24 13:20 Temperature Pulse Rate 56 L 58 L 60 Respiratory Rate 18 18 Blood Pressure Pulse Oximetry Oxygen Delivery Oxygen Flow Rate Fraction of Inspired Oxygen 05/17/24 13:57 05/17/24 14:21 05/17/24 16:00 Temperature 97.4 F L Pulse Rate 60 58 L Respiratory Rate 20 Blood Pressure 132/50 L Pulse Oximetry 94 96 Oxygen Delivery Nasal Cannula Oxygen Flow Rate 1 Fraction of Inspired Oxygen 05/17/24 20:00 05/17/24 20:52 05/17/24 20:52 Temperature Pulse Rate 56 L 51 L Respiratory Rate 18 Blood Pressure Pulse Oximetry 94 Oxygen Delivery Nasal Cannula Oxygen Flow Rate 1 Fraction of Inspired Oxygen 05/17/24 20:55 05/17/24 21:01 05/17/24 21:44 Temperature 97.8 F Pulse Rate 51 L 48 L 51 L Respiratory Rate 20 18 20 Blood Pressure 167/69 H Pulse Oximetry 99 99 Oxygen Delivery Nasal Cannula Oxygen Flow Rate 1 Fraction of Inspired Oxygen 32 05/18/24 00:03 05/18/24 02:02 05/18/24 02:12 Temperature Pulse Rate 54 L 50 L 43 L Respiratory Rate 18 18 Blood Pressure Pulse Oximetry Oxygen Delivery Oxygen Flow Rate Fraction of Inspired Oxygen 05/18/24 04:00 05/18/24 06:00 05/18/24 07:48 Temperature 97.8 F Pulse Rate 47 L 57 L 47 L Respiratory Rate 20 Blood Pressure 135/63 Pulse Oximetry 100 Oxygen Delivery Oxygen Flow Rate Fraction of Inspired Oxygen 05/18/24 08:20 05/18/24 08:20 05/18/24 08:30 Temperature Pulse Rate 58 L 58 L 56 L Respiratory Rate 18 18 18 Blood Pressure Pulse Oximetry 94 Oxygen Delivery Nasal Cannula Oxygen Flow Rate 2 Fraction of Inspired Oxygen Intake/Output Intake/Output: Intake & Output 05/15/24 05/16/24 05/17/24 05/18/24 23:59 23:59 23:59 23:59 Intake Total 1050 1280 845 672 Output Total 450 850 700 Balance 1050 830 -5 -28 Meds/Results Medications: Active Medications Generic Name Dose Route Start Last Admin Trade Name Freq PRN Reason Stop Dose Admin Acetaminophen 650 mg 05/15/24 16:06 05/17/24 18:39 Acetaminophen 325 Mg Tablet PO 650 mg Q4H PRN Administration Mild Pain (1-3) or Fever Albuterol/Ipratropium 3 ml 05/16/24 02:00 05/18/24 08:20 Ipratropium 0.5 Mg/Albuterol Sulfate 2.5 Mg Ampul.Neb 3 Ml INHALATION 3 ml Q6HRT BERNARDO Administration Artificial Tears 1 drop 05/16/24 02:48 Artificial Tears Ophth Soln 15 Ml Bottle EACH EYE QID PRN Dry Eye(s) Aspirin 81 mg 05/16/24 09:00 05/18/24 08:21 Aspirin 81 Mg Enteric Tablet PO 81 mg DAILY BERNARDO Administration Azithromycin 500 mg 05/16/24 09:00 05/18/24 08:20 Azithromycin 250 Mg Tablet PO 500 mg DAILY BERNARDO Administration Benzonatate 100 mg 05/16/24 02:17 05/18/24 02:29 Benzonatate 100 Mg Capsule PO 100 mg TID PRN Administration cough Brimonidine Tartrate 1 drop 05/16/24 09:00 05/18/24 09:57 Brimonidine Tartrate 0.15% 5 Ml Ophth Soln EACH EYE 1 drop TID BERNARDO Administration Cyclobenzaprine HCl 5 mg 05/16/24 02:17 05/16/24 08:29 Cyclobenzaprine Hcl 5 Mg Tablet PO 5 mg TID PRN Administration Muscle Spasticity Dextrose 12.5 gm 05/16/24 11:28 Dextrose 50% 25 Gm/50 Ml Syringe IV PUSH PRN PRN Hypoglycemia Protocol Dorzolamide HCl 1 drop 05/16/24 09:00 05/18/24 09:57 Dorzolamide Hcl 2% Ophth Drops EACH EYE 1 drop TID BERNARDO Administration Enoxaparin Sodium 40 mg 05/17/24 09:00 05/18/24 08:26 Enoxaparin 40 Mg/0.4 Ml Syringe SUB-Q 40 mg DAILY BERNARDO Administration Escitalopram Oxalate 20 mg 05/16/24 09:00 05/18/24 08:21 Escitalopram Oxalate 10 Mg Tablet PO 20 mg QAM BERNARDO Administration Gabapentin 200 mg 05/16/24 09:00 05/18/24 08:20 Gabapentin 100 Mg Capsule PO 200 mg TID BERNARDO Administration Glucagon 1 mg 05/16/24 11:28 Glucagon For Inj 1 Mg Vial IM PRN PRN Hypoglycemia Protocol Glucose 15 gm 05/16/24 11:28 Glucose Oral Gel 15 Gm Of Glucse In 37.5 Gm Tube PO PRN PRN Hypoglycemia Protocol Dextrose 1,000 mls @ 100 mls/hr 05/16/24 11:28 Dextrose 5% 1,000 Ml IVPB PRN PRN Hypoglycemia Protocol Insulin Aspart 4 - 8 units 05/16/24 12:00 05/18/24 08:19 Insulin Aspart (*Bkc) 100 Units/Ml SUB-Q 6 units TIDWM BERNARDO Administration Protocol Insulin Glargine 15 units 05/17/24 21:00 05/17/24 20:56 Insulin Glargine (*Bkc) 100 Units/Ml SUB-Q 15 units HS BERNARDO Administration Melatonin 5 mg 05/16/24 02:25 05/17/24 20:57 Melatonin 5 Mg Tablet PO 5 mg HS BERNARDO Administration Miscellaneous Information 1 each 05/16/24 00:01 (Cabergoline 0.5 Mg Tablet) Is Nonformulary, Can Patient Bring From Home? XX 06/15/24 00:00 CLARIFY BERNARDO Non-Formulary Medication 0.5 mg 05/16/24 02:30 Cabergoline PO 06/15/24 02:29 2XW BERNARDO Ondansetron HCl 4 mg 05/15/24 16:06 Ondansetron Inj 4 Mg/2 Ml Vial IV PUSH Q4H PRN Nausea Prednisone 40 mg 05/17/24 13:30 05/18/24 08:20 Prednisone 20 Mg Tablet PO 40 mg DAILY@0800 BERNARDO Administration Rosuvastatin Calcium 40 mg 05/16/24 21:00 05/17/24 20:57 Rosuvastatin 20 Mg Tablet PO 40 mg QHS BERNARDO Administration Fluticasone/Salmeterol 2 puff 05/16/24 08:00 05/18/24 08:20 Fluticasone/Salmeterol 115-21 Mcg Inhaler 1 Puff INHALATION 2 puff Q12HRT BERNARDO Administration Senna 8.6 mg 05/16/24 02:17 Sennosides 8.6 Mg Tablet PO PRN PRN Constipation Tamsulosin HCl 0.4 mg 05/16/24 09:00 05/18/24 08:21 Tamsulosin Hcl 0.4 Mg Capsule PO 0.4 mg QAM BERNARDO Administration Umeclidinium [place] 1 puff 05/16/24 08:00 05/18/24 08:20 Umeclidinium [place] 62.5 Mcg Ellipta INHALATION 1 puff DAILYRT BERNARDO Administration Radiology Results: ITS Impressions Chest X-Ray 05/15/24 13:22 IMPRESSION: 1. Cardiomegaly. Chest CTA 05/15/24 14:29 IMPRESSION: 1. No pulmonary embolism. 2. No acute cardiopulmonary 3. Bilateral adrenal adenomas. No follow-up is advised. Pathology unless clinically warranted.. Labs Labs: Laboratory Results - last 24 hr 05/17/24 05/17/24 05/17/24 11:48 16:05 20:50 WBC RBC Hgb Hct MCV MCH MCHC RDW Plt Count MPV Immature Gran % (Auto) Neut % (Auto) Lymph % (Auto) Harris % (Auto) Eos % (Auto) Baso % (Auto) Lymph # (Auto) Harris # (Auto) Eos # (Auto) Baso # (Auto) Abs Immat Gran (auto) Absolute Neuts (auto) Absolute Nucleated RBC Nucleated RBC % Sodium Potassium Chloride Carbon Dioxide Anion Gap BUN Creatinine Estim Creat Clear Calc Estimated GFR Glucose POC Capillary Glucose 329 H 404 H 381 H Calcium Magnesium Total Bilirubin AST ALT Alkaline Phosphatase Total Protein Albumin 05/18/24 05/18/24 07:13 08:18 WBC 8.8 RBC 3.86 L Hgb 11.1 L Hct 33.9 L MCV 87.8 MCH 28.8 MCHC 32.7 RDW 13.6 Plt Count 190 MPV 8.9 Immature Gran % (Auto) 1.5 H Neut % (Auto) 85.0 H Lymph % (Auto) 8.3 L Harris % (Auto) 5.1 Eos % (Auto) 0.0 Baso % (Auto) 0.1 L Lymph # (Auto) 0.73 L Harris # (Auto) 0.5 Eos # (Auto) 0.0 Baso # (Auto) 0.0 Abs Immat Gran (auto) 0.13 H Absolute Neuts (auto) 7.5 H Absolute Nucleated RBC 0.000 Nucleated RBC % 0.0 Sodium 136 L Potassium 4.6 Chloride 100 Carbon Dioxide 31 H Anion Gap 5 BUN 34 H D Creatinine 1.22 Estim Creat Clear Calc 64 Estimated GFR 59 Glucose 331 H POC Capillary Glucose 339 H Calcium 8.9 Magnesium 1.9 Total Bilirubin 0.6 AST 17 ALT 16 Alkaline Phosphatase 67 Total Protein 6.0 L Albumin 3.4 L Quality VTE Prophylaxis VTE prophylaxis: mechanical ordered
[2024-05-18 12:03] LABS: Glucose Point of Care > 500 mg/dl (65-105)
[2024-05-18] MEDS: INSULIN ASPART (*BKC) 100 UNITS/ML 10 UNITS SUB-Q (12:05)
[2024-05-18 16:37] LABS: Glucose Point of Care 443 mg/dl (65-105)
[2024-05-18] MEDS: ROSUVASTATIN 20 MG TABLET 40 MG PO (20:53)
[2024-05-18] MEDS: MELATONIN 5 MG TABLET PO (20:54)
[2024-05-18] MEDS: INSULIN GLARGINE (*BKC) 100 UNITS/ML 15 UNITS SUB-Q (20:55)
[2024-05-18 21:05] LABS: Glucose Point of Care 415 mg/dl (65-105)
[2024-05-18] MEDS: INSULIN ASPART (*BKC) 100 UNITS/ML 8 UNITS SUB-Q (21:22)
[2024-05-19] VITALS (16 sets, daily range): BP systolic 117–157; BP diastolic 52–63; PULSE 41–60; RESP 16–18; TEMP 36–36.7; O2SAT 93–97
[2024-05-19] MEDS: IPRATROPIUM 0.5 MG/ALBUTEROL SULFATE 2.5 MG AMPUL.NEB 3 ML INHALATION ×4 (02:30→21:21)
[2024-05-19 08:08] LABS: Glucose Point of Care 199 mg/dl (65-105)
[2024-05-19 08:18] LABS: Glucose Point of Care 221 mg/dl (65-105)
[2024-05-19] MEDS: AZITHROMYCIN 250 MG TABLET 500 MG PO (08:37)
[2024-05-19] MEDS: predniSONE 20 MG TABLET 40 MG PO (08:37)
[2024-05-19] MEDS: ESCITALOPRAM OXALATE 10 MG TABLET 20 MG PO (08:37)
[2024-05-19] MEDS: ASPIRIN 81 MG ENTERIC TABLET PO (08:37)
[2024-05-19] MEDS: GABAPENTIN 100 MG CAPSULE 200 MG PO ×3 (08:37→17:13)
[2024-05-19] MEDS: glipiZIDE 5 MG TABLET PO (08:37)
[2024-05-19] MEDS: TAMSULOSIN HCL 0.4 MG CAPSULE PO (08:37)
[2024-05-19] MEDS: INSULIN ASPART (*BKC) 100 UNITS/ML SUB-Q ×6 (08:39→17:13)
[2024-05-19] MEDS: BRIMONIDINE TARTRATE 0.15% 5 ML OPHTH SOLN 1 DROP EACH EYE ×3 (08:44→17:14)
[2024-05-19] MEDS: DORZOLAMIDE HCL 2% OPHTH DROPS 1 DROP EACH EYE ×3 (08:44→17:14)
[2024-05-19] MEDS: ENOXAPARIN 40 MG/0.4 ML SYRINGE SUB-Q (09:20)
[2024-05-19] MEDS: FLUTICASONE/SALMETEROL 115-21 MCG INHALER 1 PUFF 2 PUFF INHALATION ×2 (09:22→21:21)
[2024-05-19] MEDS: UMECLIDINIUM BROMIDE 62.5 MCG ELLIPTA 1 PUFF INHALATION (09:22)
[2024-05-19] MEDS: BENZONATATE 100 MG CAPSULE PO ×2 (10:29→20:11)
[2024-05-19 11:56] LABS: Glucose Point of Care 282 mg/dl (65-105)
[2024-05-19 16:10] LABS: Glucose Point of Care 345 mg/dl (65-105)
--- NOTE | 2024-05-19 16:20 | PM.IMPN ---
Progress Note: A&P Assessment and Plan (1) Acute hypoxic respiratory failure: Code(s): J96.01 - Acute respiratory failure with hypoxia Status: Acute Assessment and Plan: - Likely related to below. - CTA chest PE negative for PE and negative for cardiopulmonary. - Acute respiratory virus PCR panel negative. - Currently on 3L/NC for sats > 90 %. - Wean O2 as [place] for sats > 90 %. - Further mgt as below. (2) Acute exacerbation of chronic obstructive pulmonary disease: Code(s): J44.1 - Chronic obstructive pulmonary disease with (acute) exacerbation Status: Acute Assessment and Plan: - Given IV Solu-Medrol in ER. COntinue Bronchodilators and Start PO Prednisone. S/p IV steroid - Started on PO azithromycin. - Currently on 2L/NC and we'll wean as [place] for sats > 90 %. - Monitor closely symptoms progression Patient reported he was supposed to be using 1 liter oxygen at nighttime at the [place] [facility] but it was never started because he did not have prescription Maybe patient may now be on oxygen from here (3) Hypertension: Code(s): I10 - Essential (primary) hypertension Status: Acute Assessment and Plan: - Fairly well controlled. - Resume home meds. (4) Coronary artery disease: Code(s): I25.10 - Atherosclerotic heart disease of [place] coronary artery without angina pectoris Status: Acute Assessment and Plan: - Stable. - Resume aspirin, Coreg and statin. (5) Type 2 diabetes mellitus: Code(s): E11.9 - Type 2 diabetes mellitus without complications Status: Acute Assessment and Plan: Blood sugar elevated to 345 Started lantus 10 units and continue High Dose SSI restarted home Glimepiride Will discharge once Blood sugar is below 250. (6) History of CVA (cerebrovascular accident): Code(s): Z86.73 - Personal history of transient ischemic attack (TIA), and cerebral infarction without residual deficits Status: Acute Assessment and Plan: - Bedridden with residual left hemiparesis. - Continue aspirin and statin. - Assist with activity. (7) Obstructive sleep apnea: Code(s): G47.33 - Obstructive sleep apnea (adult) (pediatric) Status: Acute Assessment and Plan: - CPAP bedtime if able to tolerate. - Supplemental O2 bedtime if unable to tolerate CPAP. (8) Tobacco abuse: Code(s): Z72.0 - Tobacco use Status: Acute Assessment and Plan: - Encouraged with cessation. - Nicotine patch PRN. Plan DVT prophylaxis on Sq Lovenox Awaiting blood sugar control Subjective Date/time seen: 05/19/24 16:20 Interval history: Comfortable at bedside Blood glucose still elevated will monitor one more night Review of Systems Review of Systems: All systems reviewed & are unremarkable except as noted in HPI and below Exam Narrative: General: Fair appearing, generalized muscle weakness. HEENT: Atraumatic, PERRL, EOM, anicteric, moist mucosa. NECK: Supple. Lungs: Diminished bilaterally. Heart: RRR, no murmurs. Abdomen: Soft, non-tender, non-distended, +ve BS X4 Quadrants. Extremities: No cyanosis, left hemiparesis, no edema. Skin: Warm and dry with no lesions. Neuro: Left faith-paresis. Psych: Calm and co-operative. Objective Data Vital Signs Vital Signs: Vital Signs - 24 hr 05/18/24 20:00 05/18/24 20:00 05/18/24 20:10 Temperature Pulse Rate 48 L 53 L Respiratory Rate 18 Blood Pressure Pulse Oximetry 98 Oxygen Delivery Nasal Cannula Oxygen Flow Rate 1 05/18/24 20:11 05/18/24 20:22 05/18/24 20:55 Temperature 97.4 F L Pulse Rate 59 L 53 L Respiratory Rate 18 16 Blood Pressure 119/82 Pulse Oximetry 98 91 Oxygen Delivery Nasal Cannula Oxygen Flow Rate 1 05/18/24 21:00 05/19/24 00:00 05/19/24 02:31 Temperature Pulse Rate 44 L 45 L Respiratory Rate 18 Blood Pressure Pulse Oximetry 86 L Oxygen Delivery Room Air Oxygen Flow Rate 05/19/24 04:00 05/19/24 06:10 05/19/24 08:35 Temperature 96.8 F L Pulse Rate 41 L 54 L Respiratory Rate 16 Blood Pressure 117/56 L Pulse Oximetry 96 93 Oxygen Delivery Nasal Cannula Oxygen Flow Rate 05/19/24 08:35 05/19/24 09:23 05/19/24 09:26 Temperature Pulse Rate 46 L 55 L Respiratory Rate 18 Blood Pressure Pulse Oximetry 95 Oxygen Delivery Nasal Cannula Oxygen Flow Rate 05/19/24 09:36 05/19/24 14:00 05/19/24 14:32 Temperature 97.0 F L Pulse Rate 58 L 54 L 57 L Respiratory Rate 18 16 18 Blood Pressure 119/52 L Pulse Oximetry 97 Oxygen Delivery Oxygen Flow Rate 05/19/24 14:39 05/19/24 14:45 Temperature Pulse Rate 57 L 60 Respiratory Rate 18 18 Blood Pressure Pulse Oximetry Oxygen Delivery Oxygen Flow Rate Intake/Output Intake/Output: Intake & Output 05/16/24 05/17/24 05/18/24 05/19/24 23:59 23:59 23:59 23:59 Intake Total 6247 566 5312 898 Output Total 836 238 6493 850 Balance 830 -5 562 48 Meds/Results Medications: Active Medications Generic Name Dose Route Start Last Admin Trade Name Freq PRN Reason Stop Dose Admin Acetaminophen 650 mg 05/15/24 16:06 05/17/24 18:39 Acetaminophen 325 Mg Tablet PO 650 mg Q4H PRN Administration Mild Pain (1-3) or Fever Albuterol/Ipratropium 3 ml 05/16/24 02:00 05/19/24 14:32 Ipratropium 0.5 Mg/Albuterol Sulfate 2.5 Mg Ampul.Neb 3 Ml INHALATION 3 ml Q6HRT BERNARDO Administration Artificial Tears 1 drop 05/16/24 02:48 Artificial Tears Ophth Soln 15 Ml Bottle EACH EYE QID PRN Dry Eye(s) Aspirin 81 mg 05/16/24 09:00 05/19/24 08:37 Aspirin 81 Mg Enteric Tablet PO 81 mg DAILY BERNARDO Administration Azithromycin 500 mg 05/16/24 09:00 05/19/24 08:37 Azithromycin 250 Mg Tablet PO 500 mg DAILY BERNARDO Administration Benzonatate 100 mg 05/16/24 02:17 05/19/24 10:29 Benzonatate 100 Mg Capsule PO 100 mg TID PRN Administration cough Brimonidine Tartrate 1 drop 05/16/24 09:00 05/19/24 12:15 Brimonidine Tartrate 0.15% 5 Ml Ophth Soln EACH EYE 1 drop TID BERNARDO Administration Cyclobenzaprine HCl 5 mg 05/16/24 02:17 05/16/24 08:29 Cyclobenzaprine Hcl 5 Mg Tablet PO 5 mg TID PRN Administration Muscle Spasticity Dextrose 12.5 gm 05/16/24 11:28 Dextrose 50% 25 Gm/50 Ml Syringe IV PUSH PRN PRN Hypoglycemia Protocol Dorzolamide HCl 1 drop 05/16/24 09:00 05/19/24 12:15 Dorzolamide Hcl 2% Ophth Drops EACH EYE 1 drop TID BERNARDO Administration Enoxaparin Sodium 40 mg 05/17/24 09:00 05/19/24 09:20 Enoxaparin 40 Mg/0.4 Ml Syringe SUB-Q 40 mg DAILY BERNARDO Administration Escitalopram Oxalate 20 mg 05/16/24 09:00 05/19/24 08:37 Escitalopram Oxalate 10 Mg Tablet PO 20 mg QAM BERNARDO Administration Gabapentin 200 mg 05/16/24 09:00 05/19/24 12:14 Gabapentin 100 Mg Capsule PO 200 mg TID BERNARDO Administration Glipizide 5 mg 05/19/24 07:30 05/19/24 08:37 Glipizide 5 Mg Tablet PO 5 mg DAILY@0730 BERNARDO Administration Glucagon 1 mg 05/16/24 11:28 Glucagon For Inj 1 Mg Vial IM PRN PRN Hypoglycemia Protocol Glucose 15 gm 05/16/24 11:28 Glucose Oral Gel 15 Gm Of Glucse In 37.5 Gm Tube PO PRN PRN Hypoglycemia Protocol Dextrose 1,000 mls @ 100 mls/hr 05/16/24 11:28 Dextrose 5% 1,000 Ml IVPB PRN PRN Hypoglycemia Protocol Insulin Aspart 4 - 8 units 05/16/24 12:00 05/19/24 12:14 Insulin Aspart (*Bkc) 100 Units/Ml SUB-Q 5 units TIDWM BERNARDO Administration Protocol Insulin Aspart 5 units 05/19/24 08:00 05/19/24 12:14 Insulin Aspart (*Bkc) 100 Units/Ml 0.05 units/kg (5 units) 5 units SUB-Q Administration TIDWM BERNARDO Insulin Aspart 2 - 4 units 05/20/24 21:00 Insulin Aspart (*Bkc) 100 Units/Ml SUB-Q HS [facility] Protocol Insulin Glargine 15 units 05/17/24 21:00 05/18/24 20:55 Insulin Glargine (*Bkc) 100 Units/Ml SUB-Q 15 units HS [facility] Administration Melatonin 5 mg 05/16/24 02:25 05/18/24 20:54 Melatonin 5 Mg Tablet PO 5 mg HS BERNARDO Administration Ondansetron HCl 4 mg 05/15/24 16:06 Ondansetron Inj 4 Mg/2 Ml Vial IV PUSH Q4H PRN Nausea Prednisone 30 mg 05/20/24 08:00 Prednisone 10 Mg Tablet PO DAILY@0800 [facility] Rosuvastatin Calcium 40 mg 05/16/24 21:00 05/18/24 20:53 Rosuvastatin 20 Mg Tablet PO 40 mg QHS BERNARDO Administration Fluticasone/Salmeterol 2 puff 05/16/24 08:00 05/19/24 09:22 Fluticasone/Salmeterol 115-21 Mcg Inhaler 1 Puff INHALATION 2 puff Q12HRT BERNARDO Administration Senna 8.6 mg 05/16/24 02:17 Sennosides 8.6 Mg Tablet PO PRN PRN Constipation Tamsulosin HCl 0.4 mg 05/16/24 09:00 05/19/24 08:37 Tamsulosin Hcl 0.4 Mg Capsule PO 0.4 mg QAM [facility] Administration Umeclidinium [place] 1 puff 05/16/24 08:00 05/19/24 09:22 Umeclidinium [place] 62.5 Mcg Ellipta INHALATION 1 puff DAILYRT BERNARDO Administration Radiology Results: ITS Impressions Chest X-Ray 05/15/24 13:22 IMPRESSION: 1. Cardiomegaly. Chest CTA 05/15/24 14:29 IMPRESSION: 1. No pulmonary embolism. 2. No acute cardiopulmonary 3. Bilateral adrenal adenomas. No follow-up is advised. Pathology unless clinically warranted.. Labs Labs: Laboratory Results - last 24 hr 05/18/24 05/18/24 05/19/24 16:31 20:58 06:13 POC Capillary Glucose 443 H 415 H 199 H 05/19/24 05/19/24 05/19/24 08:11 11:40 16:07 POC Capillary Glucose 221 H 282 H 345 H Quality VTE Prophylaxis VTE prophylaxis: mechanical ordered
[2024-05-19] MEDS: INSULIN GLARGINE (*BKC) 100 UNITS/ML 15 UNITS SUB-Q (20:11)
[2024-05-19] MEDS: CYCLOBENZAPRINE HCL 5 MG TABLET PO (20:11)
[2024-05-19] MEDS: MELATONIN 5 MG TABLET PO (20:12)
[2024-05-19] MEDS: ROSUVASTATIN 20 MG TABLET 40 MG PO (20:12)
[2024-05-19 21:17] LABS: Glucose Point of Care 329 mg/dl (65-105)
[2024-05-20] VITALS (9 sets, daily range): BP systolic 123–135; BP diastolic 59–64; PULSE 49–66; RESP 14–20; TEMP 36.1–36.4; O2SAT 90–97
[2024-05-20] MEDS: IPRATROPIUM 0.5 MG/ALBUTEROL SULFATE 2.5 MG AMPUL.NEB 3 ML INHALATION ×3 (03:25→13:50)
[2024-05-20 07:30] LABS: Basophils Percent Auto 0.3 % (0.2-1.2); Eosinophils Percent Auto 0.1 % (0-4.4); Hematocrit 35.2 % (42.0-52.0); Hemoglobin 11.4 g/dL (14.0-18.0); Immature Granulocyte Absolute 0.28 K/mm3 (0.00-0.031); Immature Granulocyte Percent A 3.5 % (0-0.5); Lymphocytes Absolute Auto 1.47 K/mm3 (0.9-3.2); Lymphocytes Percent Auto 18.6 % (18.3-44.2); Mean Corpuscular HGB Conc 32.4 g/dl (32-36); Mean Corpuscular Hemoglobin 29.1 pg (26-34); Mean Corpuscular Volume 89.8 fl (80-100); Monocytes Absolute Auto 0.6 K/mm3 (0.1-0.6); Monocytes Percent Auto 6.9 % (2.6-8.5); Neutrophils Absolute Auto 5.6 K/mm3 (1.3-6.7); Neutrophils Percent Auto 70.6 % (45.5-73.1); Platelet Count Result 179 k/mm3 (150-375); Red Blood Count 3.92 M/mm3 (4.6-6.20); Red Cell Distribution Width 13.5 % (11.5-14.5); White Blood Count 7.9 K/mm3 (4.5-10.0)
[2024-05-20] MEDS: UMECLIDINIUM BROMIDE 62.5 MCG ELLIPTA 1 PUFF INHALATION (07:39)
[2024-05-20] MEDS: FLUTICASONE/SALMETEROL 115-21 MCG INHALER 1 PUFF 2 PUFF INHALATION (07:40)
[2024-05-20 07:50] LABS: Alanine Aminotransferase 31 U/L (6-50); Albumin Level 3.1 g/dL (3.5-5.1); Alkaline Phosphatase 59 U/L (38-126); Anion Gap 4 mmol/L (4-12); Aspartate Amino Transferase 23 U/L (17-59); Bilirubin,Total 0.4 mg/dL (0.2-1.3); Blood Urea Nitrogen 33 mg/dL (9-20); Calcium 8.7 mg/dL (8.4-10.2); Carbon Dioxide 33 mmol/L (22-30); Chloride 99 mmol/L (98-107); Estimated CRCL calculation 67 ml/min; Estimated Glomerular Filt Rate > 60; Glucose 203 mg/dL (65-110); Potassium 3.9 mmol/L (3.4-5.0); Sodium 136 mmol/L (137-145)
[2024-05-20 08:14] LABS: Glucose Point of Care 207 mg/dl (65-105)
[2024-05-20] MEDS: AZITHROMYCIN 250 MG TABLET 500 MG PO (08:56)
[2024-05-20] MEDS: DORZOLAMIDE HCL 2% OPHTH DROPS 1 DROP EACH EYE ×3 (08:56→16:52)
[2024-05-20] MEDS: BRIMONIDINE TARTRATE 0.15% 5 ML OPHTH SOLN 1 DROP EACH EYE ×3 (08:56→16:52)
[2024-05-20] MEDS: GABAPENTIN 100 MG CAPSULE 200 MG PO ×3 (08:56→16:51)
[2024-05-20] MEDS: ESCITALOPRAM OXALATE 10 MG TABLET 20 MG PO (08:57)
[2024-05-20] MEDS: ASPIRIN 81 MG ENTERIC TABLET PO (08:57)
[2024-05-20] MEDS: glipiZIDE 5 MG TABLET PO (08:57)
[2024-05-20] MEDS: INSULIN ASPART (*BKC) 100 UNITS/ML SUB-Q ×5 (08:57→16:52)
[2024-05-20] MEDS: TAMSULOSIN HCL 0.4 MG CAPSULE PO (08:57)
[2024-05-20] MEDS: predniSONE 10 MG TABLET 30 MG PO (08:57)
[2024-05-20] MEDS: ENOXAPARIN 40 MG/0.4 ML SYRINGE SUB-Q (09:55)
--- NOTE | 2024-05-20 10:07 | P.DS_ITS ---
DS: Admitting Diagnosis Discharge Date 05/20/24 Admitting Diagnosis Shortness of Breath DS: Discharge Diagnosis Discharge Diagnosis (1) Acute exacerbation of chronic obstructive pulmonary disease: Code(s): J44.1 - Chronic obstructive pulmonary disease with (acute) exacerbation Status: Acute (2) Acute hypoxic respiratory failure: Code(s): J96.01 - Acute respiratory failure with hypoxia Status: Acute DS: Summary Hospital Course Hospital Course: Patient was brought in to the ER from the facility that he resides with reports of worsening SOB. Patient has a Hx of COPD and currently smokes 8 cigarettes/day. He reports progressive SOB within the last couple of days with some yellowish sputum. He denies any chills or fevers, hemoptysis, chest pain, abdominal pain, nausea or vomiting. Patient has a Hx of CVA with left hemiparesis.He also has a Hx of DM 2, CAD, JAMES, HTN, BPH. Patient was managed for COPD exacerbation with bronchodilators with IV steroids, later transitioned to PO Prednisone. Patient was on supplemental oxygen and eventually titrated down to 1 liters. Patient noted he was supposed to be on nighttime oxygen but was never started prior to hospitalization. He has Steroid induced hyperglycemia and was placed on Lantus and SSI with accucheks, later Glimepiride was restarted. Prednisone is being tapered and currently on 30mg daily. Patient discharged on tapering dose of steroid. Also discharged on lantus and SSI with accucheks, discussed with patient that as he tapers off steroid blood sugar will trend down. I discussed with him to also watch his blood sugar as taper off insulin. insulin was prescribed for only 15 days. Also discussed that he follow up with PCP In 3-5 days, to continue watching blood sugar and insulin and tapering off as appropriate. Time Spent with Patient Time attestation: Total time spent providing and/or coordinating discharge services: DS: Data Data Completed and Pending Labs on day of discharge: Labs from last 24 hours 05/20/24 05/20/24 05/19/24 07:49 06:40 21:10 WBC 7.9 RBC 3.92 L Hgb 11.4 L Hct 35.2 L MCV 89.8 MCH 29.1 MCHC 32.4 RDW 13.5 Plt Count 179 MPV 9.0 Immature Gran % (Auto) 3.5 H Neut % (Auto) 70.6 Lymph % (Auto) 18.6 [place] % (Auto) 6.9 Eos % (Auto) 0.1 Baso % (Auto) 0.3 Lymph # (Auto) 1.47 [place] # (Auto) 0.6 Eos # (Auto) 0.0 Baso # (Auto) 0.0 Abs Immat Gran (auto) 0.28 H Absolute Neuts (auto) 5.6 Absolute Nucleated RBC 0.000 Nucleated RBC % 0.0 Sodium 136 L Potassium 3.9 Chloride 99 Carbon Dioxide 33 H Anion Gap 4 BUN 33 H Creatinine 1.18 Estim Creat Clear Calc 67 Estimated GFR > 60 Glucose 203 H POC Capillary Glucose 207 H 329 H Calcium 8.7 Magnesium 2.0 Total Bilirubin 0.4 AST 23 ALT 31 Alkaline Phosphatase 59 Total Protein 6.0 L Albumin 3.1 L 05/19/24 05/19/24 16:07 11:40 WBC RBC Hgb Hct MCV MCH MCHC RDW Plt Count MPV Immature Gran % (Auto) Neut % (Auto) Lymph % (Auto) [place] % (Auto) Eos % (Auto) Baso % (Auto) Lymph # (Auto) [place] # (Auto) Eos # (Auto) Baso # (Auto) Abs Immat Gran (auto) Absolute Neuts (auto) Absolute Nucleated RBC Nucleated RBC % Sodium Potassium Chloride Carbon Dioxide Anion Gap BUN Creatinine Estim Creat Clear Calc Estimated GFR Glucose POC Capillary Glucose 345 H 282 H Calcium Magnesium Total Bilirubin AST ALT Alkaline Phosphatase Total Protein Albumin Discharge Plan Discharge Attending physician on discharge: Lizet Molina Discharging Clinician: Lizet Molina Anticipated Discharge Date/Time: 05/20/24 09:49 [facility] Activity: as tolerated Diet: as tolerated Patient Instructions: Antibiotic Form Patient Language: Kiswahili Stand Alone Forms: General Discharge Information Follow-up/Referrals: UNKNOWN,DOCTOR [Primary Care Provider] - (F/u with PCP in 3-5 days ) Discharge Medications: New insulin glargine [Lantus U-100 Insulin] 100 unit/mL Solution 15 unit subcut HS 15 Days Qty: 2.25 0RF prednisone 5 mg tablet 5 mg PO DIRECTED Qty: 27 0RF Rx Instructions: see taper instructions 30mg x 1 more day, then 20mg daily x 3 days, then 10mg daily x 3 days, then 5 mg daily x 3 days then stop. insulin aspart U-100 [Novolog FlexPen U-100 Insulin] 100 unit/mL (3 mL) insulin pen 1 sliding scale dose subcut USEASDIRECTD Qty: 15 2RF Rx Instructions: sliding scale insulin 70-130 - 0 units of insulin 131-180 - 2 units of insulin 181-240 - 4 units of insulin 241- 300- 6 units of insulin 301- 350 - 8 units of insulin 351-400 - 10 units of insulin >400 - 12 units of insulin Continued benzonatate 100 mg capsule 100 mg PO TID PRN (Reason: cough ) Breztri Aerosphere 160-9-4.8 mcg/actuation HFA aerosol inhaler 2 inh INHALATION BID oxycodone 5 mg tablet 5 mg PO Q8H PRN (Reason: pain) Simbrinza 1-0.2 % drops,suspension 1 drp EACH EYE TID sennosides [Senokot] 8.6 mg Tablet 8.6 mg PO PRN PRN (Reason: Constipation) acetaminophen 325 mg Tablet 650 mg PO Q8H PRN (Reason: Pain, Mild) loperamide [Anti-Diarrheal (loperamide)] 2 mg Capsule 2 mg PO Q6H PRN (Reason: Diarrhea) dextromethorphan-guaifenesin 10-100 mg/5 mL Syrup 10 ml PO Q4-6H PRN (Reason: Cough) aspirin 81 mg Tablet,Delayed Release (Dr/Ec) 81 mg PO DAILY carvedilol 3.125 mg Tablet 3.125 mg PO BID Rx Instructions: must administer with a meal/food tamsulosin 0.4 mg Capsule 0.4 mg PO QAM cabergoline 0.5 mg Tablet 0.5 mg PO 2XW Rx Instructions: 1mg, Wednesday and Wednesday gabapentin 100 mg Capsule 100 mg PO TID albuterol sulfate 90 mcg/actuation Hfa Aerosol Inhaler 2 puff INHALATION Q4H PRN (Reason: Wheezing) albuterol sulfate 90 mcg/actuation Hfa Aerosol Inhaler 2 puff INHALATION Q6H PRN (Reason: Wheezing) ondansetron 4 mg Tablet,Disintegrating 4 mg PO Q4H PRN (Reason: Nausea And Vomiting) glipizide 5 mg Tablet 5 mg PO QAM escitalopram oxalate 20 mg Tablet 20 mg PO QAM carboxymethylcellulose sodium [Refresh Plus] 0.5 % Dropperette 1 drp EACH EYE QID PRN (Reason: Dry Eyes) rosuvastatin 40 mg Tablet 40 mg PO QHS melatonin 5 mg Tablet 5 mg PO HS Spiriva Respimat 2.5 mcg/actuation Mist 2 puff INHALATION QAM Date of admission: 05/15/24 16:07 Primary Care Provider: UNKNOWN,DOCTOR Admitting Provider: Nawaf Glynn Attending physician on admission: Nawaf Glynn Condition: Guarded Prognosis
[2024-05-20 11:39] LABS: Glucose Point of Care 195 mg/dl (65-105)
[2024-05-20 11:59] LABS: SARS-CoV-2 RNA PCR Negative (Negative)
[2024-05-20 16:37] LABS: Glucose Point of Care 313 mg/dl (65-105)
--- OUTSIDE RECORDS SUMMARY | 2024-05-22 00:01 | XMS_ITS | Patient Health Summary ---
Author Organization [facility] Address [address] [place] [address] Care Team Providers Care Multimedia Designer Name Role Phone Ly Valenzuela MD Primary Care Provider [phone] Note from [facility],non-owned Affiliates and Associated Physician Practices is amultiple site organization consisting of ambulatory clinics and hospital sitesin [place], [place], [place] and [place]. This disclosure is being madepursuant to the Care Everywhere program and may not contain all information available regarding this patient. Last updated 18.[facility] Allergies * Hydralazine(Nausea and/or Vomiting) * Lisinopril(Other) * Metformin(Diarrhea) * Pioglitazone(Nausea and/or Vomiting) -Medium Criticality * Simvastatin(Other) Medications * Be aware that medications may not be up to date on this document. Alwaysverify current medications with the patient. * aspirin EC (Ecotrin) 81 MG tablet Take 1 (one) tablet by mouth once daily * brinzolamide-brimonidine (Simbrinza) 1-0.2 % ophthalmic suspension Instill 1 (one) drop into both eyes 3 times daily * cabergoline (Dostinex) 0.5 MG tablet Take 1 (one) tablet by mouth Two times a week * carboxymethylcellulose 1 % ophthalmic gel Instill into both eyes 4 times daily as needed (Dry eyes) * vitamin D, ergocalciferol, (Drisdol) 1.25 MG (18158 UT) capsule Take 1 (one) capsule by mouth every 7 days * empagliflozin (Jardiance) 25 MG tablet Take 1 (one) tablet by mouth once daily * rosuvastatin (Crestor) 40 MG tablet Take 1 (one) tablet by mouth once daily * tiotropium (Spiriva Respimat) 2.5 MCG/ACT inhaler Inhale 2 (two) puffs by mouth once daily * acetaminophen (Tylenol) 325 MG tablet(Started 10/28/2022) Take 2 (two) tablets by mouth every 8 hours Maximum allowable Acetaminophen amount = 4 Grams (4000 mg) / 24 hours. * albuterol-ipratropium (Duo-Neb) 0.5-2.5 (3) MG/3ML nebulizer solution(Started 10/28/2022) Inhale 3 mL by mouth every 4 hours as needed for Shortness of Breath or Wheezing * budesonide-formoterol (Symbicort) 160-4.5 MCG/ACT inhaler(Started 10/28/2022) Inhale 2 (two) puffs by mouth 2 times daily * calcium carbonate (Tums) 500 MG chew tablet(Started 10/28/2022) Take 2 (two) tablets by mouth every 2 hours as needed for Heartburn * heparin 5000 UNIT/ML injection(Started 10/28/2022) Inject 1 mL subcutaneously every 8 hours * gabapentin (Neurontin) 100 MG capsule(Started 10/28/2022) Take 2 (two) capsules by mouth 3 times daily * insulin glargine (Lantus/Semglee) 100 units/mL pen(Started 10/29/2022) Inject 10 (ten) Units subcutaneously every 24 hours * insulin lispro (HumaLOG;ADMelog) 100 UNIT/ML pen(Started 10/28/2022) Inject 0 (zero) Units to 12 (twelve) Units subcutaneously 3 times daily with meals * bismuth subsalicylate (Pepto-Bismol) 262 MG chew tablet(Started 10/28/2022) Take 2 (two) tablets by mouth as needed * losartan (Cozaar) 50 MG tablet(Started 10/29/2022) Take 1 (one) tablet by mouth once daily * amLODIPine (Norvasc) 10 MG tablet(Started 10/29/2022) Take 1 (one) tablet by mouth once daily * melatonin 1 MG tablet(Started 10/28/2022) Take 8 (eight) tablets by mouth once daily * tamsulosin (Flomax) 0.4 MG capsule(Started 10/29/2022) Take 1 (one) capsule by mouth once daily At the same time every day after a meal. * simethicone (Mylicon) 80 MG chew tablet(Started 10/28/2022) Take 1 (one) tablet by mouth 4 times daily as needed for Gas Pain * clopidogrel (plaVIX) 75 MG tablet(Started 10/29/2022) Take 1 (one) tablet by mouth once daily for 81 days * nicotine (Nicoderm CQ) 21 MG/24HR patch(Started 10/29/2022) Apply 1 (one) patch to skin once daily * lidocaine (Lidoderm) 5 % patch(Started 10/28/2022) Apply 1 (one) patch to skin every 24 hours Apply patch to most painful area and remove after 12 hours. May reapply a new patch 12 hours later. * glucose, Diabetic Use, (Dex4 Glucose) oral liquid(Started 10/28/2022) Take by mouth as needed for Other (Bedside Glucose less than 70 mg/dL -If able to eat and does not have swallowing difficulties) * glucose, Diabetic Use, 15 GM/32ML oral gel(Started 10/28/2022) Take by mouth as needed for Other (Bedside Glucose less than 70 mg/dL -If able to eat and does not have swallowing difficulties) * Dextrose, Diabetic Use, (glucose) 4 G chew tablet(Started 10/28/2022) Take 4 (four) tablets by mouth as needed * carvedilol (Coreg) 6.25 MG tablet(Started 10/28/2022) Take 1 (one) tablet by mouth 2 times daily with morning and evening meal Hold for Heart rate < 60/min Active Problems Problem Noted Date Diagnosed Date Weakness 10/12/2022 Ischemic stroke 10/12/2022 Coronary artery disease 10/12/2022 JAMES (obstructive sleep apnea) 10/12/2022 COPD (chronic obstructive pulmonary disease) 09/2022 Stage 3 chronic kidney disease 10/12/2022 Hx of completed stroke 12/11/2021 DM2 (diabetes mellitus, type 2) 12/11/2021 Chronic low back pain 12/11/2021 Left leg weakness 12/11/2021 Primary hypertension 12/11/2021 Smoker 12/11/2021 Carotid occlusion, right Carotid stenosis, left Resolved Problems Problem Noted Date Diagnosed Date Resolved Date Peritonsillar abscess 10/13/20222022 Dyspnea 10/13/2022 10/28/2022 Respiratory acidosis 10/13/2022 023 Immunizations * INFLUENZA VACCINE(Given 05/10/2006) * PNEUMOCOCCAL PPV VACCINE(Given 08/17/2003) * TD, HISTORIC VACCINE(Given 12/09/2003) * TDAP (7yrs+)(Given 07/23/2014) Social History Tobacco Use Types Packs/Day Years Used Date Smoking Tobacco: Former Cigarettes 1 43.4 1 980 - 10/12/2022 Passive Smoke Exposure: Past Smokeless Tobacco: Never Tobacco Cessation:Counseling Given: Yes Alcohol Use Standard Drinks/Week Comments Not Currently 0 (1 standard drink = 0.6 oz pur e alcohol) AUDIT-C Answer Date Recorded Q1: How often do you have a drink containing alcohol? Never 10/16/2022 Q2: How many drinks containi ng alcohol do you have on a typical day when you are drinking? Patient does not drink Q3: How often do you have si x or more drinks on one occasion? Never 10/16/2022 Overall Financial Resource Strain (CARDIA) Answe r Date Recorded How hard is it for you to pa y for the very basics like food, housing, medical care, and heating? Not hard at all 10/16/2022 PHQ-2 Answer Date Recorded PHQ2 TOTAL SCORE 0 12/13/2021 [facility] - Occupational Stress Questionnaire Answer Date Recorded Do you feel stress - tense, restless, nervous, or anxious, or unable to sleep at night because your mind is troubled all the time - these days? Very much 10/16/2022 Hunger Vital Sign Answer Date Recorded Within the past 12 months, y ou worried that your food would run out before you got the money to buy more. Never true 10/17/19 23 Within the past 12 months, t he food you bought just didn't last and you didn't have money to get more. Never true 10/16/2022 PRAPARE - Transportation Answer Date Re corded In the past 12 months, has l ack of transportation kept you from medical appointments or from getting medications? No 01/2023 In the past 12 months, has l ack of transportation kept you from meetings, work, or from getting things needed for daily living? No 10/16/2022 Housing Stability Vital Sign Answer Dm e Recorded In the last 12 months, was t here a time when you were not able to pay the mortgage or rent on time? No 10/16/2022 In the last 12 months, how many places have you lived? 2 10/16/2022 In the last 12 months, was t here a time when you did not have a steady place to sleep or slept in a prison (including now)? No 10/16/2022 Sex and Gender Information Value Date Recorded Sex Assigned at Not on file Gender Identity Not on file Sexual Orientation Not on file Last Filed Vital Signs Vital Sign Reading Time Taken Comments Blood Pressure 131/58 10/28/2022 8:30 PM CDT Pulse 58 10/28/2022 8:30 PM CDT Temperature 36.9 ??C (98.4 ??F) 10/28/2022 2:23 PM CD T Respiratory Rate 16 10/28/2022 8:30 PM CDT Oxygen Saturation 93% 10/28/2022 6:11 AM CDT Inhaled Oxygen Concentration 36% 10/20/2022 6 :10 AM CDT Weight 103.6 kg (228 lb 4.8 oz) 10/26/2022 4:00 AM CDT Height 180.3 cm (5' 11 ) 10/20/2022 7:14 PM CDT Body Mass Index 31.84 10/20/2022 7:14 PM CDT Medical Devices Implanted Type Area Menagerie Caretaker Device Identifier Shelf Expiration Date Model / Serial / Lot Loop Recorder Loop Recorder [employer] [id number] / [id number] / Procedures * ALDOSTERONE BLOOD(Performed 11/19/2022) * LDH BLOOD(Performed 11/19/2022) * CORTISOL BLOOD AM(Performed 11/19/2022) * RENIN ACTIVITY(Performed 11/19/2022) * BASIC METABOLIC PANEL (CALCIUM TOTAL)(Performed 11/19/2022) * CBC W/O DIFFERENTIAL(Performed 11/19/2022) * US RETROPERITONEAL COMPLETE(Performed 11/18/2022) Performed for Acute kidney injury (HCC) * BASIC METABOLIC PANEL (CALCIUM TOTAL)(Performed 11/18/2022) * URINE MICROSCOPIC ONLY(Performed 11/18/2022) * URINALYSIS REFLEX TO MICROSCOPIC NO CULTURE(Performed 11/18/2022) * POTASSIUM URINE RANDOM(Performed 11/18/2022) * PROTEIN URINE RANDOM QUANTITATIVE(Performed 11/18/2022) * MICROALB/CREAT RATIO URINE RANDOM PANEL(Performed 11/18/2022) * UREA NITROGEN URINE RANDOM(Performed 11/18/2022) * SODIUM URINE RANDOM(Performed 11/18/2022) * BASIC METABOLIC PANEL (CALCIUM TOTAL)(Performed 11/18/2022) * POTASSIUM BLOOD(Performed 11/17/2022) * CBC W/O DIFFERENTIAL(Performed 11/16/2022) * BASIC METABOLIC PANEL (CALCIUM TOTAL)(Performed 11/16/2022) * BASIC METABOLIC PANEL (CALCIUM TOTAL)(Performed 11/12/2022) * BASIC METABOLIC PANEL (CALCIUM TOTAL)(Performed 11/09/2022) * CBC W/O DIFFERENTIAL(Performed 11/09/2022) * XR PELVIS W LEFT HIP 2VW(Performed 11/06/2022) * BASIC METABOLIC PANEL (CALCIUM TOTAL)(Performed 11/05/2022) * CBC W/O DIFFERENTIAL(Performed 11/05/2022) * URIC ACID BLOOD(Performed 11/03/2022) * BASIC METABOLIC PANEL (CALCIUM TOTAL)(Performed 11/02/2022) * CBC W/O DIFFERENTIAL(Performed 11/02/2022) * BASIC METABOLIC PANEL (CALCIUM TOTAL)(Performed 10/31/2022) * CARDIAC EKG ORDER(Performed 10/30/2022) * VITAMIN B12(Performed 10/30/2022) * VITAMIN D 25-HYDROXY(Performed 10/30/2022) * BASIC METABOLIC PANEL (CALCIUM TOTAL)(Performed 10/29/2022) * CBC W/O DIFFERENTIAL(Performed 10/29/2022) * GLUCOSE - POINT OF CARE(Performed 10/28/2022) * GLUCOSE - POINT OF CARE(Performed 10/28/2022) * GLUCOSE - POINT OF CARE(Performed 10/28/2022) * GLUCOSE - POINT OF CARE(Performed 10/27/2022) * GLUCOSE - POINT OF CARE(Performed 10/27/2022) * GLUCOSE - POINT OF CARE(Performed 10/27/2022) * GLUCOSE - POINT OF CARE(Performed 10/27/2022) * COMPREHENSIVE METABOLIC PANEL(Performed 10/27/2022) * PHOSPHORUS BLOOD(Performed 10/27/2022) * MAGNESIUM BLOOD(Performed 10/27/2022) * GLUCOSE - POINT OF CARE(Performed 10/26/2022) * GLUCOSE - POINT OF CARE(Performed 10/26/2022) * GLUCOSE - POINT OF CARE(Performed 10/26/2022) * GLUCOSE - POINT OF CARE(Performed 10/26/2022) * PHOSPHORUS BLOOD(Performed 10/26/2022) * MAGNESIUM BLOOD(Performed 10/26/2022) * CBC W AUTO DIFFERENTIAL(Performed 10/26/2022) * BASIC METABOLIC PANEL (CALCIUM TOTAL)(Performed 10/26/2022) * GLUCOSE - POINT OF CARE(Performed 10/25/2022) * GLUCOSE - POINT OF CARE(Performed 10/25/2022) * GLUCOSE - POINT OF CARE(Performed 10/25/2022) * GLUCOSE - POINT OF CARE(Performed 10/25/2022) * GLUCOSE - POINT OF CARE(Performed 10/24/2022) * GLUCOSE - POINT OF CARE(Performed 10/24/2022) * GLUCOSE - POINT OF CARE(Performed 10/24/2022) * EKG 12-LEAD(Performed 10/24/2022) Performed for Bradycardia * GLUCOSE - POINT OF CARE(Performed 10/24/2022) * GLUCOSE - POINT OF CARE(Performed 10/23/2022) * GLUCOSE - POINT OF CARE(Performed 10/23/2022) * GLUCOSE - POINT OF CARE(Performed 10/23/2022) * GLUCOSE - POINT OF CARE(Performed 10/23/2022) * PHOSPHORUS BLOOD(Performed 10/23/2022) * MAGNESIUM BLOOD(Performed 10/23/2022) * CBC W AUTO DIFFERENTIAL(Performed 10/23/2022) * BASIC METABOLIC PANEL (CALCIUM TOTAL)(Performed 10/23/2022) * GLUCOSE - POINT OF CARE(Performed 10/22/2022) * GLUCOSE - POINT OF CARE(Performed 10/22/2022) * GLUCOSE - POINT OF CARE(Performed 10/22/2022) * GLUCOSE - POINT OF CARE(Performed 10/22/2022) * BASIC METABOLIC PANEL (CALCIUM TOTAL)(Performed 10/22/2022) * GLUCOSE - POINT OF CARE(Performed 10/21/2022) * GLUCOSE - POINT OF CARE(Performed 10/21/2022) * GLUCOSE - POINT OF CARE(Performed 10/21/2022) * GLUCOSE - POINT OF CARE(Performed 10/21/2022) * PHOSPHORUS BLOOD(Performed 10/21/2022) * MAGNESIUM BLOOD(Performed 10/21/2022) * CBC W AUTO DIFFERENTIAL(Performed 10/21/2022) * BASIC METABOLIC PANEL (CALCIUM TOTAL)(Performed 10/21/2022) * GLUCOSE - POINT OF CARE(Performed 10/21/2022) * GLUCOSE - POINT OF CARE(Performed 10/21/2022) * GLUCOSE - POINT OF CARE(Performed 10/20/2022) * GLUCOSE - POINT OF CARE(Performed 10/20/2022) * GLUCOSE - POINT OF CARE(Performed 10/20/2022) * GLUCOSE - POINT OF CARE(Performed 10/20/2022) * GLUCOSE - POINT OF CARE(Performed 10/20/2022) * GLUCOSE - POINT OF CARE(Performed 10/19/2022) * BASIC METABOLIC PANEL (CALCIUM TOTAL)(Performed 10/19/2022) * CBC W AUTO DIFFERENTIAL(Performed 10/19/2022) * PHOSPHORUS BLOOD(Performed 10/19/2022) * MAGNESIUM BLOOD(Performed 10/19/2022) * GLUCOSE - POINT OF CARE(Performed 10/19/2022) * GLUCOSE - POINT OF CARE(Performed 10/19/2022) * GLUCOSE - POINT OF CARE(Performed 10/19/2022) * FL SWALLOWING FUNCTION STUDY(Performed 10/19/2022) Performed for Dysphagia, unspecified type * GLUCOSE - POINT OF CARE(Performed 10/19/2022) * GLUCOSE - POINT OF CARE(Performed 10/19/2022) * GLUCOSE - POINT OF CARE(Performed 10/19/2022) * GLUCOSE - POINT OF CARE(Performed 10/19/2022) * BASIC METABOLIC PANEL (CALCIUM TOTAL)(Performed 10/18/2022) * CBC W AUTO DIFFERENTIAL(Performed 10/18/2022) * PHOSPHORUS BLOOD(Performed 10/18/2022) * MAGNESIUM BLOOD(Performed 10/18/2022) * GLUCOSE - POINT OF CARE(Performed 10/18/2022) * GLUCOSE - POINT OF CARE(Performed 10/18/2022) * GLUCOSE - POINT OF CARE(Performed 10/18/2022) * GLUCOSE - POINT OF CARE(Performed 10/18/2022) * GLUCOSE - POINT OF CARE(Performed 10/18/2022) * GLUCOSE - POINT OF CARE(Performed 10/18/2022) * BASIC METABOLIC PANEL (CALCIUM TOTAL)(Performed 10/18/2022) * PHOSPHORUS BLOOD(Performed 10/18/2022) * MAGNESIUM BLOOD(Performed 10/18/2022) * CBC W AUTO DIFFERENTIAL(Performed 10/18/2022) * GLUCOSE - POINT OF CARE(Performed 10/18/2022) * GLUCOSE - POINT OF CARE(Performed 10/17/2022) * GLUCOSE - POINT OF CARE(Performed 10/17/2022) * GLUCOSE - POINT OF CARE(Performed 10/17/2022) * GLUCOSE - POINT OF CARE(Performed 10/17/2022) * GLUCOSE - POINT OF CARE(Performed 10/17/2022) * GLUCOSE - POINT OF CARE(Performed 10/17/2022) * CT HEAD WO CONTRAST(Performed 10/17/2022) Performed for Weakness * BASIC METABOLIC PANEL (CALCIUM TOTAL)(Performed 10/17/2022) * CBC W AUTO DIFFERENTIAL(Performed 10/17/2022) * PHOSPHORUS BLOOD(Performed 10/17/2022) * MAGNESIUM BLOOD(Performed 10/17/2022) * GLUCOSE - POINT OF CARE(Performed 10/17/2022) * GLUCOSE - POINT OF CARE(Performed 10/16/2022) * EKG 12-LEAD(Performed 10/16/2022) Performed for Bradycardia * GLUCOSE - POINT OF CARE(Performed 10/16/2022) * GLUCOSE - POINT OF CARE(Performed 10/16/2022) * XR ABDOMEN KUB PORTABLE(Performed 10/16/2022) Performed for Ischemic stroke (HCC) * EKG 12-LEAD(Performed 10/16/2022) Performed for Bradycardia * GLUCOSE - POINT OF CARE(Performed 10/16/2022) * GLUCOSE - POINT OF CARE(Performed 10/16/2022) * CT HEAD WO CONTRAST(Performed 10/16/2022) Performed for Weakness * TSH REFLEX FREE T4(Performed 10/16/2022) * BASIC METABOLIC PANEL (CALCIUM TOTAL)(Performed 10/16/2022) * CBC W AUTO DIFFERENTIAL(Performed 10/16/2022) * PHOSPHORUS BLOOD(Performed 10/16/2022) * MAGNESIUM BLOOD(Performed 10/16/2022) * GLUCOSE - POINT OF CARE(Performed 10/16/2022) * GLUCOSE - POINT OF CARE(Performed 10/15/2022) * GLUCOSE - POINT OF CARE(Performed 10/15/2022) * GLUCOSE - POINT OF CARE(Performed 10/15/2022) * GLUCOSE - POINT OF CARE(Performed 10/15/2022) * GLUCOSE - POINT OF CARE(Performed 10/15/2022) * GLUCOSE - POINT OF CARE(Performed 10/14/2022) * BASIC METABOLIC PANEL (CALCIUM TOTAL)(Performed 10/14/2022) * CBC W AUTO DIFFERENTIAL(Performed 10/14/2022) * PHOSPHORUS BLOOD(Performed 10/14/2022) * MAGNESIUM BLOOD(Performed 10/14/2022) * GLUCOSE - POINT OF CARE(Performed 10/14/2022) * ECHO COMPLETE W CONTRAST W BUBBLE STUDY(Performed 10/14/2022) Performed for Weakness * GLUCOSE - POINT OF CARE(Performed 10/14/2022) * GLUCOSE - POINT OF CARE(Performed 10/14/2022) * CT HEAD WO CONTRAST(Performed 10/14/2022) Performed for Weakness * GLUCOSE - POINT OF CARE(Performed 10/14/2022) * GLUCOSE - POINT OF CARE(Performed 10/14/2022) * TRIGLYCERIDES BLOOD(Performed 10/14/2022) * BASIC METABOLIC PANEL (CALCIUM TOTAL)(Performed 10/14/2022) * CBC W AUTO DIFFERENTIAL(Performed 10/14/2022) * PHOSPHORUS BLOOD(Performed 10/14/2022) * MAGNESIUM BLOOD(Performed 10/14/2022) * GLUCOSE - POINT OF CARE(Performed 10/14/2022) * MRI BRAIN WO CONTRAST(Performed 10/14/2022) Performed for Weakness * XR ABDOMEN KUB PORTABLE(Performed 10/13/2022) Performed for Dysphagia, unspecified type * CT HEAD WO CONTRAST(Performed 10/13/2022) Performed for Weakness * GLUCOSE - POINT OF CARE(Performed 10/13/2022) * GLUCOSE - POINT OF CARE(Performed 10/13/2022) * CARDIAC EKG ORDER(Performed 10/13/2022) * TROPONIN-I HIGH SENSITIVE(Performed 10/13/2022) * XR CHEST 1VW PORTABLE(Performed 10/13/2022) Performed for Respiratory acidosis * TROPONIN-I HIGH SENSITIVE(Performed 10/13/2022) * GLUCOSE - POINT OF CARE(Performed 10/13/2022) * XR ABDOMEN KUB PORTABLE(Performed 10/13/2022) Performed for Weakness * GLUCOSE - POINT OF CARE(Performed 10/13/2022) * EKG 12-LEAD(Performed 10/13/2022) Performed for Weakness * GLUCOSE - POINT OF CARE(Performed 10/13/2022) * URINALYSIS REFLEX TO MICROSCOPIC NO CULTURE(Performed 10/13/2022) * URINE DRUG SCREEN IMMUNOASSAY(Performed 10/13/2022) * CBC W AUTO DIFFERENTIAL(Performed 10/13/2022) * BLOOD GASES ART + COOX PANEL(Performed 10/13/2022) * GLUCOSE - POINT OF CARE(Performed 10/13/2022) * LIPID PROFILE(Performed 10/13/2022) * BLOOD GASES ART + COOX PANEL(Performed 10/13/2022) * GLUCOSE - POINT OF CARE(Performed 10/13/2022) * XR CHEST 1VW PORTABLE(Performed 10/13/2022) Performed for Dyspnea, unspecified type * XR CHEST 1VW PORTABLE(Performed 10/13/2022) Performed for Dyspnea, unspecified type, Respiratory acidosis * CT NECK SOFT TISSUE W CONT(Performed 10/13/2022) Performed for Dyspnea, unspecified type * CT HEAD WO CONTRAST(Performed 10/13/2022) Performed for Ischemic stroke (HCC) * BLOOD GASES ART + COOX PANEL(Performed 10/12/2022) * BASIC METABOLIC PANEL (CALCIUM TOTAL)(Performed 10/12/2022) * CBC W AUTO DIFFERENTIAL(Performed 10/12/2022) * PHOSPHORUS BLOOD(Performed 10/12/2022) * MAGNESIUM BLOOD(Performed 10/12/2022) * GLUCOSE - POINT OF CARE(Performed 10/12/2022) * TROPONIN-I HIGH SENSITIVE REFLEX 1HOUR(Performed 10/12/2022) * HEMOGLOBIN A1C(Performed 10/12/2022) * XR CHEST 1VW PORTABLE(Performed 10/12/2022) Performed for Weakness * BASIC METABOLIC PANEL (CALCIUM TOTAL)(Performed 10/12/2022) * PHOSPHORUS BLOOD(Performed 10/12/2022) * MAGNESIUM BLOOD(Performed 10/12/2022) * TROPONIN-I HIGH SENSITIVE BASELINE + 1HR(Performed 10/12/2022) * PT-INR [facility](Performed 10/12/2022) * COMPREHENSIVE METABOLIC PANEL(Performed 10/12/2022) * CT ANGIO BRAIN NECK STROKE(Performed 10/12/2022) Performed for Weakness * PT EVAL AND TREAT(Performed 10/12/2022) * OT EVAL AND TREAT(Performed 10/12/2022) * CT BRAIN STROKE(Performed 10/12/2022) Performed for Weakness * GLUCOSE - POINT OF CARE(Performed 10/12/2022) * IR CAROTID CEREBRAL ANGIOGRAM(Performed 01/19/2022) Performed for Carotid stenosis, left, Carotid occlusion, right * GLUCOSE - POINT OF CARE(Performed 01/19/2022) * PT-INR [facility](Performed 01/19/2022) Performed for Pre-procedure lab exam * CBC W AUTO DIFFERENTIAL(Performed 01/19/2022) Performed for Pre-procedure lab exam * BASIC METABOLIC PANEL (CALCIUM TOTAL)(Performed 01/19/2022) Performed for Pre-procedure lab exam * GLUCOSE - POINT OF CARE(Performed 12/14/2021) * GLUCOSE - POINT OF CARE(Performed 12/14/2021) * GLUCOSE - POINT OF CARE(Performed 12/14/2021) * PHOSPHORUS BLOOD(Performed 12/14/2021) * MAGNESIUM BLOOD(Performed 12/14/2021) * CBC W/O DIFFERENTIAL(Performed 12/14/2021) * BASIC METABOLIC PANEL (CALCIUM TOTAL)(Performed 12/14/2021) * GLUCOSE - POINT OF CARE(Performed 12/13/2021) * GLUCOSE - POINT OF CARE(Performed 12/13/2021) * GLUCOSE - POINT OF CARE(Performed 12/13/2021) * GLUCOSE - POINT OF CARE(Performed 12/13/2021) * TROPONIN I(Performed 12/13/2021) * PHOSPHORUS BLOOD(Performed 12/13/2021) * MAGNESIUM BLOOD(Performed 12/13/2021) * CBC W/O DIFFERENTIAL(Performed 12/13/2021) * BASIC METABOLIC PANEL (CALCIUM TOTAL)(Performed 12/13/2021) * GLUCOSE - POINT OF CARE(Performed 12/12/2021) * VAS TRANSCRANIAL DOPPLER COMP(Performed 12/12/2021) Performed for Left leg weakness * VAS CAROTID DUPLEX BILATERAL(Performed 12/12/2021) Performed for Left leg weakness * CT BRAIN STROKE(Performed 12/12/2021) Performed for Left leg weakness * GLUCOSE - POINT OF CARE(Performed 12/12/2021) * TROPONIN I(Performed 12/12/2021) * GLUCOSE - POINT OF CARE(Performed 12/12/2021) * CARDIAC EKG ORDER(Performed 12/12/2021) * GLUCOSE - POINT OF CARE(Performed 12/12/2021) * PHOSPHORUS BLOOD(Performed 12/12/2021) * MAGNESIUM BLOOD(Performed 12/12/2021) * LIPID PROFILE(Performed 12/12/2021) * CBC W/O DIFFERENTIAL(Performed 12/12/2021) * BASIC METABOLIC PANEL (CALCIUM TOTAL)(Performed 12/12/2021) * TROPONIN I(Performed 12/12/2021) * GLUCOSE - POINT OF CARE(Performed 12/11/2021) * GLUCOSE - POINT OF CARE(Performed 12/11/2021) * TROPONIN I(Performed 12/11/2021) * MRI ANGIO BRAIN ARTERIAL WO CONT(Performed 12/11/2021) Performed for Left leg weakness * MRI BRAIN WO CONTRAST(Performed 12/11/2021) Performed for Left leg weakness * MRI ANGIO NECK W CONTRAST(Performed 12/11/2021) Performed for Left leg weakness * TROPONIN I(Performed 12/11/2021) * XR CHEST 1VW PORTABLE(Performed 12/11/2021) Performed for Left leg weakness * BLOOD TYPE VERIFICATION(Performed 12/11/2021) * TROPONIN I(Performed 12/11/2021) * ECHO COMPLETE W BUBBLE STUDY(Performed 12/11/2021) Performed for Left leg weakness * EKG 12-LEAD(Performed 12/11/2021) Performed for Left leg weakness * GLUCOSE - POINT OF CARE(Performed 12/11/2021) * TYPE + SCREEN PANEL(Performed 12/11/2021) * HEMOGLOBIN A1C(Performed 12/11/2021) * TROPONIN I(Performed 12/11/2021) * PTT [facility](Performed 12/11/2021) * PT-INR [facility](Performed 12/11/2021) * COMPREHENSIVE METABOLIC PANEL(Performed 12/11/2021) * CBC W AUTO DIFFERENTIAL(Performed 12/11/2021) * CREATININE - POCT INTERFACED(Performed 12/11/2021) * INR WHOLE BLOOD - POINT OF CARE (IP) STROKE(Performed 12/11/2021) * CT BRAIN STROKE(Performed 12/11/2021) Performed for Left leg weakness Results * ALDOSTERONE BLOOD (11/19/2022 2:37 AM CDT) Pathologist [facility] Aldosterone 2.2 0.0 - 30.0 ng/dL 11/23/2022 2:09 PM CDT [facility] ([facility]) Blood BLOOD SPECIMEN / Unknown Lab Venipuncture / Unknown 11/19/2022 2:37 AM CDT 11/19/2022 3:50 AM CDT Narrative [facility] ([facility]) - 11/23/2022 2:09 PM CDT Test(s) [id number]-[id number] was developed and its performance characteristics determined by [facility]. It has not been cleared or approved by the Food and Drug Administration. Performed at: ??01 - [facility] ??[id number] Torpedo Specialist: Eriberto Laboy MD, Phone: ??[phone] Sacha Ruby DO LAB - CHEMISTRY OR DERABLES [facility] ([facility]) [address] [place] [address] * RENIN ACTIVITY (11/19/2022 12:08 AM CDT) Pathologist [facility] Renin 5.125 0.167 - 5.380 ng/mL/hr 11/27/2022 10:11 AM CDT [facility] ([facility]) Blood BLOOD SPECIMEN / Unknown Lab Venipuncture / Unknown 11/19/2022 12:08 AM CDT 11/19/2022 3:50 AM CDT Narrative [facility] ([facility]) - 11/27/2022 10:11 AM CDT Test(s) [id number] Activity, Plasma was developed and its performance characteristics determined by [facility]. It has not been cleared or approved by the Food and Drug Administration. Performed at: ??01 - [facility] ??[id number] Torpedo Specialist: Eriberto Laboy MD, Phone: ??[phone] Sacha Ruby DO LAB - CHEMISTRY OR DERABLES [facility] [facility] [address] [place] [address] * (ABNORMAL) CBC W/O DIFFERENTIAL (11/19/2022 12:08 AM CDT) Only the most recent of9 resultswithin the time period is included. WBC 8.8 4.4 - 10.7 x10E9/L 11/19/2022 4:29 AM CDT [facility] RBC 3.40(L) 3.80 - 5.40 x10E12/L 11/19/2022 4:29 AM CDT [facility] Hemoglobin 10.3(L) 12.0 - 17.6 gm/dL 11/19/2022 4:29 AM CDT [facility] Hematocrit 32.0(L) 35.2 - 51.7 % 11/19/2022 4:29 AM CDT [facility] MCV 94.1 80.7 - 98.3 fl 11/19/2022 4:29 AM CDT [facility] MCH 30.3 26.7 - 34.0 pg 11/19/2022 4:29 AM CDT [facility] MCHC 32.2 30.8 - 35.9 gm/dL 11/19/2022 4:29 AM CDT [facility] Platelet Count 246 153 - 416 x10E9/L 11/19/2022 4:29 AM CDT [facility] RDW-CV 14.5 12.1 - 14.9 % 11/19/2022 4:29 AM CDT [facility] MPV 9.2(L) 9.4 - 12.9 fl 11/19/2022 4:29 AM CDT [facility] Blood BLOOD SPECIMEN / Unknown Lab Venipuncture / Unknown 11/19/2022 12:08 AM CDT 11/19/2022 3:50 AM CDT Zay Perry MD LAB - HEMATOLOGY OR DERABLES [facility] [address] [place] [address] * (ABNORMAL) BASIC METABOLIC PANEL (CALCIUM TOTAL) (11/19/2022 12:08 AM CDT) Only the most recent of27 resultswithin the time period is included. Glucose 114(H) 70 - 105 mg/dL 11/19/2022 4:32 AM CDT [facility] Sodium 140 136 - 145 mmol/L 11/19/2022 4:32 AM CDT [facility] Potassium 4.8 3.5 - 5.1 mmol/L 11/19/2022 4:32 AM CDT [facility] Chloride 105 98 - 107 mmol/L 11/19/2022 4:32 AM CDT [facility] CO2 26 22 - 29 mmol/L 11/19/2022 4:32 AM CDT [facility] Calcium 9.9 8.4 - 10.4 mg/dL 11/19/2022 4:32 AM T [facility] Anion Gap 9 6 - 16 mmol/L 11/19/2022 4:32 AM CDT [facility] BUN 56(H) 7 - 26 mg/dL 11/19/2022 4:32 AM CDT [facility] Creatinine 1.40(H) 0.72 - 1.25 mg/dL 11/19/2022 4:32 AM T [facility] eGFR by CKD-EPI 55(L) >=90 mL/min/1.7 3 m2 11/19/2022 4:32 AM T [facility] Blood BLOOD SPECIMEN / Unknown Lab Venipuncture / Unknown 11/19/2022 12:08 AM CDT 11/19/2022 3:50 AM CDT Zay Perry MD LAB - CHEMISTRY ORD ERABLES Performing Organization Address City/[facility]/ZIP Co de Phone Number [facility] [address], [place] [phone] * LDH BLOOD (11/19/2022 12:08 AM CDT) LDH 166 125 - 220 U/L 11/19/2022 4:46 AM CDT [facility] Blood BLOOD SPECIMEN / Unknown Lab Venipuncture / Unknown 11/19/2022 12:08 AM CDT 11/19/2022 3:50 AM CDT Sacha Ruby DO LAB - CHEMISTRY OR DERABLES Performing Organization Address City/[facility]/ZIP Co de Phone Number [facility] [address] [place] [phone] * CORTISOL BLOOD AM (11/19/2022 12:08 AM CDT) Cortisol AM 5.0 4.3 - 22.4 ug/dL 11/19/2022 4:45 AM CDT [facility] Blood BLOOD SPECIMEN / Unknown Lab Venipuncture / Unknown 11/19/2022 12:08 AM CDT 11/19/2022 3:50 AM CDT Sacha Ruby DO LAB - CHEMISTRY OR DERABLES Performing Organization Address City/[facility] Co de Phone Number [facility] [address] [place] [phone] * US RETROPERITONEAL COMPLETE (11/18/2022 4:38 PM CDT) Anatomical Region Laterality Modality Abdomen Ultrasound 11/18/2022 5:05 PM CDT Impressions 11/18/2022 5:07 PM CDT IMPRESSION: 1. ??Unremarkable kidneys and bladder. 2. ??Mildly enlarged spleen > Interpreting Provider: Keya Altman MD on 11/18/2022 5:07 PM Narrative 11/18/2022 5:07 PM CDT PROCEDURE: ??US RETROPERITONEAL COMPLETE DATE/TIME OF EXAM: ??11/18/2022 4:38 PM CLINICAL INFORMATION: None relevant/not provided if blank. Indication: N17.9: Acute kidney failure, unspecified (CMS/HCC) Additional History: Hyperkalemia, abdominal pain COMPARISON: None. TECHNIQUE: Real-time ultrasound of the kidneys and bladder with DICOM image capture performed by cath lab technologist. FINDINGS: The right kidney measures 10.6 x 4.9 x 5.5 cm. ??Overall cortical thickness and echogenicity are normal. ??A prominent midpole calyx is most likely an incidental finding. ??There is no hydronephrosis or shadowing stone. The left kidney measures 11.6 x 5.2 x 4.9 cm and has normal cortical thickness and echogenicity. ??No shadowing stone or obstruction. The urinary bladder is mostly decompressed and unremarkable. ??Ureteral jets are seen. The spleen measures 14.9 cm which is mildly enlarged. Procedure Note Keya Altman MD - 11/18/2022 PROCEDURE: US RETROPERITONEAL COMPLETE DATE/TIME OF EXAM: 11/18/2022 4:38 PM CLINICAL INFORMATION: None relevant/not provided if blank. Indication: N17.9: Acute kidney failure, unspecified (CMS/HCC) Additional History: Hyperkalemia, abdominal pain COMPARISON: None. TECHNIQUE: Real-time ultrasound of the kidneys and bladder with DICOMimage capture performed by cath lab technologist. FINDINGS: The right kidney measures 10.6 x 4.9 x 5.5 cm. Overall corticalthickness and echogenicity are normal. A prominent midpole calyx is most likelyan incidental finding. There is no hydronephrosis or shadowing stone. The left kidney measures 11.6 x 5.2 x 4.9 cm and has normal cortical thickness and echogenicity. No shadowing stone or obstruction. The urinary bladder is mostly decompressed and unremarkable. Ureteraljets are seen. The spleen measures 14.9 cm which is mildly enlarged. IMPRESSION: 1. Unremarkable kidneys and bladder. 2. Mildly enlarged spleen > Interpreting Provider: Keya Altman MD on 11/18/2022 5:07 PM Sacha Brooksmel Hausera DO US ORDERABLES * (ABNORMAL) MICROALB/CREAT RATIO URINE RANDOM PANEL (11/18/2022 2:14 PM CDT) Creatinine Urine 35.49 mg/dL 11/19/19 23 4:29 PM CDT [facility] Microalbumin Urine 1.9 mg/dL 11/18/2022 4:29 PM CDT [facility] Microalbumin/Crea tinine Ratio 53(H) <30 mg/g 11/18/2022 4:29 PM CDT [facility] Urine URINE SPECIMEN OBTAINED BY CLEAN CATCH PROCEDURE / Unknown Collection / Unknown 11/18/2022 2:14 PM CDT 11/18/2022 3:45 PM CDT Sacha Ruby DO LAB - URINE CHEMIS TRY ORDERABLES [facility] [address] [place] [address] * (ABNORMAL) URINALYSIS REFLEX TO MICROSCOPIC NO CULTURE (11/18/2022 2:14 PM CDT) Only the most recent of2 resultswithin the time period is included. Color UA Yellow Straw, Yellow 11/18/2022 3:58 PM CDT [facility] Clarity UA Cloudy(A) Clear 11/18/2022 3:58 PM CDT [facility] Glucose UA Negative Negative 11/18/2022 3:58 PM CDT [facility] Bilirubin UA Negative Negative 11/18/2022 3:58 PM CDT [facility] Ketone UA Negative Negative 11/18/2022 3:58 PM CDT [facility] Specific [place] UA 1.010 1.005 - 1.030 11/18/2022 3:58 PM CDT [facility] Blood UA Negative Negative 11/18/2022 3:58 PM CDT [facility] pH UA 6.0 5.0 - 8.0 pH 11/18/2022 3:58 PM CDT [facility] Protein UA Negative Negative 11/18/2022 3:58 PM CDT [facility] Urobilinogen UA Negative Negative mg/dL 11/18/2022 3:58 PM CDT [facility] Nitrite UA Negative Negative 11/18/2022 3:58 PM CDT [facility] Leukocyte UA 3+(A) Negative 11/18/2022 3:58 PM CDT [facility] Urine Microscopy Urine microscopy to follow 11/18/2022 3:58 PM CDT [facility] Urine URINE SPECIMEN OBTAINED BY CLEAN CATCH PROCEDURE / Unknown Collection / Unknown 11/18/2022 2:14 PM CDT 11/18/2022 3:45 PM CDT Narrative [facility] - 11/18/2022 3:58 PM CDT Sacha Ruby DO LAB - URINALYSIS O RDERABLES [facility] [address] [place] [phone] * (ABNORMAL) URINE MICROSCOPIC ONLY (11/18/2022 2:14 PM CDT) Pathologist [facility] RBC UA 11-20(A) 0 - 5 # /hpf 11/18/2022 4:01 PM CDT [facility] WBC Clumps UA Few(A) None Seen /HPF 11/18/2022 4:01 PM CDT [facility] WBC UA >100(A) 0 - 5 # /hpf 11/18/2022 4:01 PM CDT [facility] Bacteria UA Trace(A) None Seen 11/18/2022 4:01 PM CDT [facility] Squamous Epithelial Cells None Seen 0 - 5 /hpf 11/18/2022 4:01 PM CDT [facility] Urine URINE SPECIMEN OBTAINED BY CLEAN CATCH PROCEDURE / Unknown Collection / Unknown 11/18/2022 2:14 PM CDT 11/18/2022 3:45 PM CDT Narrative [facility] - 11/18/2022 4:01 PM CDT Sacha Ruby DO LAB - URINALYSIS O JEAN CLAUDE [facility] [address] [place] [address] * PROTEIN URINE RANDOM QUANTITATIVE (11/18/2022 2:14 PM CDT) Pathologist [facility] Protein Random Urine 7.3 <11.9 mg/dL 11/18/2022 4:23 PM CDT [facility] Urine URINE SPECIMEN OBTAINED BY CLEAN CATCH PROCEDURE / Unknown Collection / Unknown 11/18/2022 2:14 PM CDT 11/18/2022 3:45 PM CDT Sacha Ruby DO LAB - URINE CHEMIS TRY ORDERABLES Performing Organization Address [facility]/ZIP Co de Phone Number [facility] [address] [place] [phone] * SODIUM URINE RANDOM (11/18/2022 2:14 PM CDT) Sodium Urine 49 mmol/L 11/18/2022 4:17 PM CDT [facility] Urine URINE SPECIMEN OBTAINED BY CLEAN CATCH PROCEDURE / Unknown Collection / Unknown 11/18/2022 2:14 PM CDT 11/18/2022 3:45 PM CDT Sacha Ruby DO LAB - URINE CHEMIS TRY ORDERABLES Performing Organization Address [facility] de Phone Number [facility] [address] [place] [phone] * UREA NITROGEN URINE RANDOM (11/18/2022 2:14 PM CDT) Urea Nitrogen Urine 488 mg/dL 11/18/2022 4:28 PM CDT [facility] Urine URINE SPECIMEN OBTAINED BY CLEAN CATCH PROCEDURE / Unknown Collection / Unknown 11/18/2022 2:14 PM CDT 11/18/2022 3:45 PM CDT Preciousnancynathalia Toddmel Hauserann marie [place] LAB - URINE CHEMIS TRY ORDERABLES Performing Organization Address [facility] Co de Phone Number [facility] [address] [place] [phone] * POTASSIUM URINE RANDOM (11/18/2022 2:14 PM CDT) Potassium Urine 37.2 mmol/L 11/18/2022 4:17 PM CDT [facility] Urine URINE SPECIMEN OBTAINED BY CLEAN CATCH PROCEDURE / Unknown Collection / Unknown 11/18/2022 2:14 PM CDT 11/18/2022 3:45 PM CDT Preciousnancynathalia Carranzaann mariemel Hauserann marie [place] LAB - URINE CHEMIS TRY ORDERABLES Performing Organization Address City/[facility]/ZIP Co de Phone Number [facility] [address] [place] [address] * (ABNORMAL) POTASSIUM BLOOD (11/17/2022 12:46 PM CDT) Potassium 5.6(H) 3.5 - 5.1 mmol/L 11/17/2022 1:19 PM CDT [facility] Blood BLOOD SPECIMEN / Unknown Venipuncture / Unknown 11/17/2022 12:46 PM CDT 11/17/2022 12:57 PM CDT Alta Harrison MD LAB - CHEMISTRY ORD ERABLES Performing Organization Address City/[facility]/ZIP Co de Phone Number [facility] [address] [place] [address] * XR PELVIS W LEFT HIP 2VW (11/06/2022 5:20 PM CDT) Anatomical Region Laterality Modality Pelvis Radiographic Evelyn ging 11/06/2022 5:34 PM CDT Narrative 11/06/2022 5:34 PM CDT PROCEDURE: ??XR PELVIS W LEFT HIP 2VW, DATE/TIME OF EXAM: ??11/06/2022 5:20 PM, LOCATION ??[facility] INDICATION: OA Left hip 3 views HISTORY: Hip pain Mild symmetric degenerative change the hip joints are present with minimal joint space narrowing. No fracture or dislocation is seen. The sacroiliac joints are normal. The visualized soft tissues are normal DIAGNOSIS: Degenerative change > Interpreting Provider: Brad Cruz MD on 11/06/2022 5:34 PM Procedure Note Brad Cruz MD - 11/06/2022 PROCEDURE: XR PELVIS W LEFT HIP 2VW, DATE/TIME OF EXAM: 11/06/2022 5:20 PM, LOCATION [facility] INDICATION: OA Left hip 3 views HISTORY: Hip pain Mild symmetric degenerative change the hip joints are present withminimal joint space narrowing. No fracture or dislocation is seen. Thesacroiliac joints are normal. The visualized soft tissues are normal DIAGNOSIS: Degenerative change > Interpreting Provider: Brad Cruz MD on 11/06/2022 5:34 PM Carolina Garibay MD DIAGNOSTIC IMAGING O RDERABLES * URIC ACID BLOOD (11/03/2022 9:30 AM CDT) [facility] Uric Acid 5.8 3.5 - 7.2 mg/dL 11/03/2022 10:21 AM CDT [facility] Blood BLOOD SPECIMEN / Unknown Lab Venipuncture / Unknown 11/03/2022 9:30 AM CDT 11/03/2022 9:39 AM CDT Raul Vo MD LAB - CHEMISTRY ORDVimal MILES [facility] [address] [place] [address] * CARDIAC EKG ORDER (10/30/2022 2:23 PM CDT) Only the most recent of3 resultswithin the time period is included. Narrative 10/30/2022 2:23 PM CDT Ordered by an unspecified provider. Scanned Document CARDIAC SERVICES ORD ERABLES * (ABNORMAL) VITAMIN D 25-HYDROXY (10/30/2022 2:05 AM CDT) [facility] Vitamin D, 25 Hydroxy 18.0(L) 30 - 100 ng/mL 10/30/2022 3:40 AM CDT [facility] Blood BLOOD SPECIMEN / Unknown Lab Venipuncture / Unknown 10/30/2022 2:05 AM CDT 10/30/2022 2:53 AM CDT Narrative [facility] - 10/30/2022 3:40 AM CDT Vitamin D Status: ?Deficiency ? <20 ? ng/mL ?Insufficiency ?? 20-30 ??ng/mL ?Sufficiency ? 30-100 ng/mL ?Toxicity ? >100 ?ng/mL Donna Grimm MD LAB - CHEMISTRY FELICE MILES Performing Organization Address [facility] Co de Phone Number [facility] [address] [place] [phone] * VITAMIN B12 (10/30/2022 2:05 AM CDT) [facility] Vitamin B12 395 213 - 816 pg/mL 10/30/2022 3:45 AM CDT [facility] Blood BLOOD SPECIMEN / Unknown Lab Venipuncture / Unknown 10/30/2022 2:05 AM CDT 10/30/2022 2:53 AM CDT Donna Grimm MD LAB - CHEMISTRY FELICE MILES Performing Organization Address [facility] de Phone Number [facility] [address] [place] [address] * (ABNORMAL) GLUCOSE - POINT OF CARE (10/28/2022 6:03 PM CDT) Only the most recent of102 resultswithin the time period is included. [facility] Glucose WB/POC 216(H) 70 - 115 mg/dL 10/28/2022 6:07 PM CDT [facility] Specimen Type Cap Fingerstick 2022 6:07 PM CDT [facility] Blood BLOOD SPECIMEN / Unknown 10/28/2022 6:03 PM CDT 10/28/2022 6:07 PM CDT Palma Rocha MD LAB - POINT OF CARE ORDERABLES Performing Organization Address [facility] Co de Phone Number [address] [phone], [facility] [phone] * (ABNORMAL) COMPREHENSIVE METABOLIC PANEL (10/27/2022 5:56 AM CDT) Only the most recent of3 resultswithin the time period is included. [facility] BUN 31(H) 7 - 26 mg/dL 10/27/2022 8:54 AM [facility] Creatinine 1.35(H) 0.71 - 1.16 mg/dL 10/27/2022 8:54 AM [facility] Sodium 141 136 - 145 mmol/L 10/27/2022 8:54 AM [facility] Potassium 4.3 3.5 - 4.5 mmol/L 10/27/2022 8:54 AM [facility] Chloride 109(H) 98 - 107 mmol/L 10/27/2022 8:54 AM [facility] CO2 25 22 - 29 mmol/L 10/27/2022 8:54 AM [facility] Glucose 128(H) 70 - 115 mg/dL 10/27/2022 8:54 AM [facility] Calcium 9.5 8.4 - 10.2 mg/dL 10/27/2022 8:54 AM [facility] Protein Total 6.4 6.0 - 8.3 g/dL 10/27/2022 8:54 AM [facility] Albumin 2.7(L) 3.4 - 5.0 g/dL 10/27/2022 8:54 AM [facility] Bilirubin Total 0.6 0.2 - 1.2 mg/dL 10/27/2022 8:54 AM [facility] Alkaline Phosphatase 135 40 - 150 U/L 10/27/2022 8:54 AM [facility] ALT 58(H) 5 - 55 U/L 10/27/2022 8:54 AM [facility] AST 23 5 - 34 U/L 10/27/2022 8:54 AM [facility] Anion Gap 11 8 - 18 10/27/2022 8:54 AM [facility] BUN/Creatinine Ratio 23 7 - 23 10/27/2022 8:54 AM [facility] Osmolality Calculated 300 270 - 300 mOsm/kg 10/27/2022 8:54 AM [facility] Albumin/Globulin Ratio 0.7(L) 1.1 - 2.3 10/27/2022 8:54 AM [facility] eGFR by CKD-EPI 58(L) >=90 mL/min/1.7 3 m2 10/27/2022 8:54 AM CDT [facility] Blood BLOOD SPECIMEN / Unknown Lab Venipuncture / Unknown 10/27/2022 5:56 AM CDT 10/27/2022 7:58 AM CDT Francis Shepherd III, MD LAB - CHEMISTRY ORDERABLES Performing Organization Address City/[facility]/ZIP Co de Phone Number [address] [address], [place] [phone] * PHOSPHORUS BLOOD (10/27/2022 5:56 AM CDT) Only the most recent of16 resultswithin the time period is included. Phosphorus 4.2 2.8 - 5.1 mg/dL 10/27/2022 8:26 AM CDT [facility] Blood BLOOD SPECIMEN / Unknown Lab Venipuncture / Unknown 10/27/2022 5:56 AM CDT 10/27/2022 7:58 AM CDT Francis Shepherd III, MD LAB - CHEMISTRY ORDERABLES Performing Organization Address City/[facility]/ZIP Co de Phone Number [address] [address], [place] [phone] * MAGNESIUM BLOOD (10/27/2022 5:56 AM CDT) Only the most recent of16 resultswithin the time period is included. Magnesium 2.0 1.6 - 2.6 mg/dL 10/27/2022 8:26 AM CDT [facility] Blood BLOOD SPECIMEN / Unknown Lab Venipuncture / Unknown 10/27/2022 5:56 AM CDT 10/27/2022 7:58 AM CDT Francis Shepherd III, MD LAB - CHEMISTRY ORDERABLES Performing Organization Address City/[facility]/ZIP Co de Phone Number [address] [phone] [phone] * (ABNORMAL) CBC W AUTO DIFFERENTIAL (10/26/2022 4:14 AM T) Only the most recent of14 resultswithin the time period is included. WBC 10.5 3.5 - 10.5 10? 3 /uL 10/26/2022 5:20 AM [facility] RBC 4.27(L) 4.30 - 5.70 10? 6 /uL 10/26/2022 5:20 AM [facility] Hemoglobin 12.3 12.0 - 17.6 g/dL 10/26/2022 5:20 AM [facility] Hematocrit 38.1 35.2 - 51.7 % 10/26/2022 5:20 AM [facility] MCV 89.2 80.7 - 98.3 fL 10/26/2022 5:20 AM [facility] MCH 28.8 26.7 - 34.0 pg 10/26/2022 5:20 AM [facility] MCHC 32.3 30.8 - 35.9 g/dL 10/26/2022 5:20 AM [facility] RDW-SD 45.3 36.0 - 50.0 fL 10/26/2022 5:20 AM [facility] RDW-CV 14.2 11.2 - 14.8 % 10/26/2022 5:20 AM [facility] Platelet Count 261 150 - 400 10? 3 /uL 10/26/2022 5:20 AM [facility] MPV 9.5 9.4 - 12.9 fL 10/26/2022 5:20 AM [facility] nRBC Absolute 0.00 0 10? 3 /uL 10/26/2022 5:20 AM [facility] nRBC Auto 0.0 0 /100 WBC 10/26/2022 5:20 AM [facility] Neutrophils % 76.1(H) 35.0 - 70.0 % 10/26/2022 5:20 AM [facility] Lymphocytes % 14.3(L) 20.0 - 43.0 % 10/26/2022 5:20 AM [facility] Monocytes % 5.9 5.0 - 13.0 % 10/26/2022 5:20 AM T [facility] Eosinophils % 2.4 0.0 - 6.0 % 10/26/2022 5:20 AM T [facility] Basophil % 0.3 0.0 - 2.0 % 10/26/2022 5:20 AM T [facility] Neutrophils Absolute 8.01(H) 1.60 - 7.00 10? 3 /uL 10/26/2022 5:20 AM T [facility] Lymphocyte Absolute 1.50 1.10 - 3.90 10? 3 /uL 10/26/2022 5:20 AM [facility] Monocytes Absolute 0.62 0.26 - 1.07 10? 3 /uL 10/26/2022 5:20 AM [facility] Eosinophils Absolute 0.25 0.00 - 0.47 10? 3 /uL 10/26/2022 5:20 AM [facility] Basophils Absolute 0.03 0.00 - 0.08 10? 3 /uL 10/26/2022 5:20 AM [facility] Immature Granulocytes % 1.0 0.0 - 1.0 % 10/26/2022 5:20 AM [facility] Immature Granulocytes Absolute 0.11 10/26/2022 5:20 AM [facility] Blood BLOOD SPECIMEN / Unknown Lab Venipuncture / Unknown 10/26/2022 4:14 AM CDT 10/26/2022 5:11 AM CDT Gregorio Khan MD LAB - HEMATOLOGY ORD ERABLES [facility] [address] [place] [address], [facility] [phone] * FL SWALLOWING FUNCTION STUDY (10/19/2022 10:15 AM CDT) Anatomical Region Laterality Modality Chest Radiographic Evelyn ging 10/19/2022 10:2 2 AM CDT Narrative 10/19/2022 12:26 PM CDT PROCEDURE: ??FL SWALLOWING FUNCTION STUDY, DATE/TIME OF EXAM: ??10/19/2022 8:12 AM, LOCATION ??[facility] INDICATION: R13.10: Dysphagia, unspecified type ADDITIONAL CLINICAL INFORMATION: Ordering Provider Reason For Exam: ??further swallow function eval per speech therapist Technologist Note: Additional: COMPARISON: None. FLUOROSCOPY TIME: 203 seconds TECHNIQUE: Modified barium swallow fluoroscopy performed in conjunction with speech pathology staff. The speech pathologist administered varying thickness barium liquids and solids under direct Cine fluoroscopy. FINDINGS/IMPRESSION: Fluoroscopic assistance was provided for a modified barium swallow test performed by Speech Therapy. Please see the Speech Therapy report for details. Report dictated by Jacobo Gupta MD (radiology asst). Adiel Orourke MD have personally reviewed and interpreted this examination/study. > Interpreting Provider: Adiel Lynn MD on 10/19/2022 12:26 PM Procedure Note Adiel Lynn MD - 10/19/2022 PROCEDURE: FL SWALLOWING FUNCTION STUDY, DATE/TIME OF EXAM: 10/19/2022 8:12 AM, LOCATION [facility] INDICATION: R13.10: Dysphagia, unspecified type ADDITIONAL CLINICAL INFORMATION: Ordering Provider Reason For Exam: further swallow function eval per speech therapist Technologist Note: Additional: COMPARISON: None. FLUOROSCOPY TIME: 203 seconds TECHNIQUE: Modified barium swallow fluoroscopy performed in conjunction with speech pathology staff. The speech pathologist administered varying thickness barium liquids and solids under direct Cine fluoroscopy. FINDINGS/IMPRESSION: Fluoroscopic assistance was provided for a modified barium swallow test performed by Speech Therapy. Please see the Speech Therapy report for details. Report dictated by Jacobo Gupta MD (radiology asst). Adiel Orourke MD have personally reviewed and interpreted this examination/study. > Interpreting Provider: Adiel Lynn MD on 2:26 PM Gregorio Khan MD FLUOROSCOPY ORDERABL ES * CT HEAD WO CONTRAST (10/17/2022 3:16 AM CDT) Only the most recent of5 resultswithin the time period is included. Anatomical Region Laterality Modality Head Computed Tomogra phy 10/17/2022 10:2 6 AM CDT Impressions 10/17/2022 4:50 PM CDT IMPRESSION: 1.Redemonstration of evolving large right MCA and right SHEA territory infarcts with expected interval evolution compared to prior. Persistent cytotoxic edema, grossly similar to the prior however, there has been interval increased conspicuity of the infarcts compared to prior, compatible with expected interval evolution. 2.Persistent local mass effect and effacement of the right lateral ventricle. Similar or slightly decreased [id number] midline shift as outlined above. 3.No evidence of hemorrhagic transformation. > Dictated by Miguel Escamilla MD (radiology asst). I, Sundar Devine MD have personally reviewed and interpreted this examination/study. > Interpreting Provider: Sundar Devine MD on 10/17/2022 4:50 PM Narrative 10/17/2022 4:50 PM CDT PROCEDURE: ??CT HEAD WO CONTRAST, DATE/TIME OF EXAM: ??10/17/2022 3:17 AM, LOCATION ??[facility] INDICATION: R53.1: Weakness ADDITIONAL CLINICAL INFORMATION: Ordering Provider Reason For Exam: ??Assessing cerebral edema EXAMINATION: Computed tomography (CT) of the head without contrast TECHNIQUE: CT of the head was performed without contrast according to standard protocol. CT dose reduction technique was used, including Automated Exposure Control. COMPARISON: CT head dated 10/16/2022 FINDINGS: There is redemonstration of right MCA and SHEA territory infarct. There is mass effect on adjacent sulci, with approximately 6 mm right to left midline shift at the level of septum pellucidum (series 6, image 32), which appears similar or slightly decreased compared to the prior study. Previously measured approximately 8 mm on remeasurement, (series 3, image 43 on the prior. Persistent mass effect on the right lateral ventricle. A small area of encephalomalacia is again seen in the lateral right occipital lobe, grossly unchanged compared to the prior. Chronic lacunar infarcts are again seen in the left cerebral hemisphere. No acute intra- or extra-axial fluid collections are identified. ??The basilar cisterns are patent. No mass effect or midline shift is seen. Periventricular white matter hypoattenuation is indicative of chronic small vessel ischemic disease. There is vascular calcification of the carotid siphons. No acute calvarial fracture is identified. Other than bilateral cataract extractions, the orbits appear normal. There is mild paranasal sinus disease. The nasal septum is deviated to the left with a septal spur in contact with the left inferior turbinate. A nasoenteric tube is seen through the right nostril. Question arose of the middle turbinates bilaterally, unspecified left side. The mastoid air cells are grossly clear. No soft tissue abnormality is identified. Procedure Note Sundar Devine MD - 10/17/2022 PROCEDURE: CT HEAD WO CONTRAST, DATE/TIME OF EXAM: 10/17/2022 3:17 AM, LOCATION [facility] INDICATION: R53.1: Weakness ADDITIONAL CLINICAL INFORMATION: Ordering Provider Reason For Exam: Assessing cerebral edema EXAMINATION: Computed tomography (CT) of the head without contrast TECHNIQUE: CT of the head was performed without contrast according to standard protocol. CT dose reduction technique was used, including Automated Exposure Control. COMPARISON: CT head dated 10/16/2022 FINDINGS: There is redemonstration of right MCA and SHEA territory infarct. Thereis mass effect on adjacent sulci, with approximately 6 mm right to left midline shift at the level of septum pellucidum (series 6, image 32),which appears similar or slightly decreased compared to the prior study. Previously measured approximately 8 mm on remeasurement, (series 3,image 43 on the prior. Persistent mass effect on the right lateral ventricle. A small area of encephalomalacia is again seen in the lateral right occipital lobe, grossly unchanged compared to the prior. Chronic lacunar infarcts are again seen in the left cerebral hemisphere. No acute intra- or extra-axial fluid collections are identified. The basilar cisterns are patent. No mass effect or midline shift is seen. Periventricular white matter hypoattenuation is indicative of chronicsmall vessel ischemic disease. There is vascular calcification of the carotid siphons. No acute calvarial fracture is identified. Other than bilateral cataract extractions, the orbits appear normal. There is mild paranasal sinus disease. The nasal septum is deviated to the left with a septalspur in contact with the left inferior turbinate. A nasoenteric tube is seen through the right nostril. Question arose of the middle turbinates bilaterally, unspecified left side. The mastoid air cells are grossly clear. No soft tissue abnormality is identified. IMPRESSION: 1.Redemonstration of evolving large right MCA and right SHEA territory infarcts with expected interval evolution compared to prior. Persistent cytotoxic edema, grossly similar to the prior however, there has been interval increased conspicuity of the infarcts compared to prior, compatible with expected interval evolution. 2.Persistent local mass effect and effacement of the right lateral ventricle. Similar or slightly decreased [id number] midline shift as outlined above. 3.No evidence of hemorrhagic transformation. > Dictated by iMguel Escamilla MD (radiology asst). I, Sundar Devine MD have personally reviewed and interpretedthis examination/study. > Interpreting Provider: Sundar Devine MD on 10/17/2022 4:[address] MD [address] ORDERABLES * EKG 12-LEAD (10/16/2022 4:41 PM CDT) Only the most recent of4 resultswithin the time period is included. Ventricular Rate 53 BPM [facility] Atrial Rate 53 BPM [facility] P-R Interval 188 ms [facility] QRS Duration ms 96 ms [facility] Q-T Interval ms 398 ms [facility] QTC Calculation (Bezet) 373 ms [facility] Calculated P [place] 9 degrees [facility] Calculated R [place] -6 degrees [facility] Calculated T [place] 86 degrees [facility] Interpretation EKG SINUS BRADYCARDIA WITH MARKED SINUS ARRYTHMIA INCOMPLETE RIGHT BUNDLE BRANCH BLOCK BORDERLINE ECG WHEN COMPARED WITH ECG OF 13-OCT-2022 08:46, PREMATURE ATRIAL COMPLEXES ARE NO LONGER PRESENT NH INTERVAL HAS DECREASED CRITERIA FOR ANTEROLATERAL INFARCT ARE NO LONGER PRESENT NONSPECIFIC T WAVE ABNORMALITY NO LONGER EVIDENT IN INFERIOR LEADS T WAVE INVERSION NO LONGER EVIDENT IN LATERAL LEADS Confirmed by JULY ??HERMAN LAYTON ([id number]) on 10/19/2022 10:38:15 PM [facility] MUSE 10/16/2022 4:41 PM CDT 10/19/2022 10:38 PM CDT Gregorio Khan MD ECG ORDERABLES [facility] * XR ABDOMEN KUB PORTABLE (10/16/2022 12:54 PM CDT) Only the most recent of3 resultswithin the time period is included. Anatomical Region Laterality Modality Abdomen Radiographic Evelyn ging 10/16/2022 1:13 PM CDT Narrative 10/16/2022 5:21 PM CDT PROCEDURE: ??XR ABDOMEN KUB PORTABLE, DATE/TIME OF EXAM: ??10/16/2022 12:55 PM, LOCATION ??[facility] INDICATION: I63.9: Ischemic stroke ([facility]/HCC) ADDITIONAL CLINICAL INFORMATION: Ordering Provider Reason For Exam: ??NG tube placement verification COMPARISON: Abdominal radiograph 10/13/2022 FINDINGS/IMPRESSION: *Enteric tube courses below the diaphragm with the distal tip superimposing the antropyloric region. *Mild gaseous dilation of the small bowel and colon is partially visualized, similar in appearance to prior. Report dictated by Oscar Santizo MD (radiology asst). Ranjit Orourke MD have personally reviewed and interpreted this examination/study. > Interpreting Provider: Ranjit Nunez MD on 10/16/2022 5:21 PM Procedure Note Humera Nunez MD - 10/16/2022 PROCEDURE: XR ABDOMEN KUB PORTABLE, DATE/TIME OF EXAM: 10/16/2022 12:55PM, LOCATION [facility] INDICATION: I63.9: Ischemic stroke ([facility]/HCC) ADDITIONAL CLINICAL INFORMATION: Ordering Provider Reason For Exam: NG tube placement verification COMPARISON: Abdominal radiograph 10/13/2022 FINDINGS/IMPRESSION: *Enteric tube courses below the diaphragm with the distal tipsuperimposing the antropyloric region. *Mild gaseous dilation of the small bowel and colon is partially visualized, similar in appearance to prior. Report dictated by Oscar Santizo MD (radiology asst). Ranjit Orourke MD have personally reviewed and interpreted this examination/study. > Interpreting Provider: Ranjit Nunez MD on 10/16/2022 5:21 PM Jorge Hall MD DIAGNOSTIC IMAGING O RDERABLES * TSH REFLEX FREE T4 (10/16/2022 12:29 AM CDT) TSH 1.008 0.350 - 4.940 uIU/mL 10/16/2022 1:26 AM CDT [facility] Blood BLOOD SPECIMEN / Unknown Venipuncture / Unknown 10/16/2022 12:29 AM CDT 10/16/2022 12:38 AM CDT Jorge Hall MD LAB - CHEMISTRY [facility] [address] [address], [facility] [phone] * ECHO COMPLETE W CONTRAST W BUBBLE STUDY (10/14/2022 4:41 PM CDT) BSA 2.2460740 m2 SSM CV FUJ I PACS LV biplane EF 61 52 - 72 % SSM CV FUJI PACS LV A2C EF 44 48 - 76 % SSM CV FUJ I PACS LV A4C EF 74 46 - 74 % SSM CV FUJ I PACS LVOT stroke vol 141.11 cm3 SSM CV FUJI PACS LV stroke vol index A4C MOD 130.152 ml SSM CV FUJI PACS LV ESV BP 49.619 21 - 61 mL SSM CV FUJI PACS LV ESV index BP 21.4 11 - 31 mL/m2 SSM CV FUJI PACS LV ESV A2C 45.805 15 - 75 mL SSM CV FUJI PACS LV EDV BP 128.64 mL SSM CV FUJ I PACS LV ESV A4C 52.01 22 - 78 mL SSM CV FUJI PACS LV EDV index BP 55.5 34 - 74 mL/m2 SSM CV FUJI PACS LV EDV A2C 92.18 59 - 175 mL SSM CV FUJI PACS LV EDV A4C 175.956 mL SSM CV FU JI PACS LVOT diam 2.4 cm SSM CV FUJ I PACS LVOT area 4.52 cm2 SSM CV FUJ I PACS LV Villegas A2C 9.261 cm SSM CV F UJI PACS LV Villegas A4C 9.562 cm SSM CV F UJI PACS MV E pk eden 64.807 cm/s SSM CV F UJI PACS MV avg E/e' ratio 10.73 SS [facility] A pk eden 96.361 cm/s SSM CV F UJI PACS MV E A ratio 0.67 [facility] MV E' lateral eden 6.179 cm/s SS M CV FUJI PACS MV E' septal eden 5.912 cm/s SSM CV FUJI PACS MV E/e' septal 10.963 SSM C V FUJI PACS MV E/e' lateral 10.487 [facility] LVOT pk eden 1.38 m/s SSM CV F UJI PACS LVOT mn eden 0.91 m/s SSM CV F UJI PACS LVOT mn grad 3.8 mmHg [facility] Cardiac Output 7.317 l/min [facility] RVOT VTI 18.587 cm SSM CV [facility] I PACS TV S' eden 15.957 SSM CV [facility] I PACS RVOT pk eden 0.83 m/s SSM CV F U PACS AV mn grad 5 mmHg SSM CV FU JI PACS AV pk grad 10 mmHg SSM CV FU JI PACS AV mn eden 1.06 m/s SSM CV [facility] I PACS AV pk eden 1.58 m/s SSM CV [facility] I PACS AV VTI 38.896 cm SSM CV [facility] I PACS LVOT pk grad 7.64 mmHg [facility] LVOT VTI 31.208 cm SSM CV [facility] I PACS AV area planimetry 3.63 cm2 [facility] area index 1.5 cm2/m2 [facility] area cont VTI 3.6 cm2 [facility] area pk eden 3.9 cm2 [facility]SM C [facility] Doppler eden index pk eden 0.87 [facility]SM CV [facility] PV mn grad 3 mmHg SSM CV FU JI PACS PV pk eden 117.531 cm/s SSM CV [facility] I PACS PV pk grad 6 mmHg SSM CV FU JI PACS PV VTI 26.049 cm SSM CV FUJ I PACS PV mn eden 73.007 cm/s SSM CV FUJ I PACS AV eden ratio 0.88 SSM CV FUJI PACS LA ESV A4C MOD Index 19 ml/m2 SSM CV FUJI PACS LA ESV A2C MOD Index 28 ml/m2 SSM CV FUJI PACS LA vol BP A-L 59.29 SSM CV FUJI PACS [id number] 8.474 cm SSM CV FUJ I PACS [id number] 8.858 cm SSM CV FUJ I PACS Dimensionless Index 0.802 SSM CV FUJI PACS LV stroke vol BP 79.021 mL SSM CV FUJI PACS Anatomical Region Laterality Modality Ultrasound Narrative 10/15/2022 8:50 AM CDT ?Left??Ventricle: Left ventricle is mildly dilated. Normal systolic function. EF by 2D Ayala biplane is 61%. Regional wall motion abnormalities present. See diagram for wall motion findings. Normal diastolic function. ?Left??Atrium: No interatrial septum shunt present viewable with agitated saline. Left Ventricle Left ventricle is mildly dilated. Normal systolic function. EF by 2D Ayala biplane is 61%. Regional wall motion abnormalities present. See diagram for wall motion findings. Normal diastolic function. Right Ventricle Right ventricle size is normal. Normal systolic function. Left Atrium Left atrium size is normal. No interatrial septum shunt present viewable with agitated saline. Right Atrium Right atrium size is normal. IVC/SVC IVC was not well visualized. Mitral Valve Valve structure is normal. Trace regurgitation. No stenosis. Tricuspid Valve Not well visualized. Trace regurgitation. The pulmonary artery systolic pressure is normal. No stenosis. Aortic Valve Not well visualized. No regurgitation. No stenosis. Pulmonic Valve Not well visualized. No regurgitation. No stenosis. Ascending Aorta Normal sized sinus of Valsalva (aortic root) and ascending aorta. Pericardium No pericardial effusion. Study Details Study quality was adequate. A complete 2D, color Doppler, spectral Doppler and M-mode echocardiogram was performed. The apical, parasternal, subcostal and suprasternal views were obtained. Definity and saline ultrasound enhancing agent used. Technical difficulties due to patient's body habitus, poor acoustic windows and restricted mobility. Wall Scoring Baseline Score Index: 1.29 The following segments are hypokinetic: mid inferior, apical anterior, apical septal, apical inferior and apex. All other segments are normal. Procedure Note Aliya Lombardi MD - 10/15/2022 ? ? Left??Ventricle: Left ventricle is mildly dilated. Normal systolicfunction. EF by 2D Ayala biplane is 61%. Regional wall motionabnormalities present. See diagram for wall motion findings. Normaldiastolic function. ? ? Left??Atrium: No interatrial septum shunt present viewable with agitatedsaline. Bertha Randolph MD ECHO CUPID * (ABNORMAL) TRIGLYCERIDES BLOOD (10/14/2022 1:18 AM CDT) Triglycerides 200(H) <150 mg/dL 10/14/2022 1:57 AM CDT [facility] Comment: ATP III Classification of Triglycerides: ?<150 mg/dL: ??Normal ? 150 - 199 mg/dL: ??Borderline High ? 200 - 400 mg/dL: ??High ?>500 mg/dL: ??Very High Blood BLOOD SPECIMEN / Unknown Venipuncture / Unknown 10/14/2022 1:18 AM CDT 10/14/2022 1:27 AM CDT Jorge Hall MD LAB - CHEMISTRY [facility] [address] [place] [id number], [facility] [phone] * MRI BRAIN WO CONTRAST (10/14/2022 12:00 AM CDT) Only the most recent of2 resultswithin the time period is included. Anatomical Region Laterality Modality Head Magnetic Resonan ce 10/14/2022 8:51 AM CDT Impressions 10/14/2022 1:12 PM CDT IMPRESSION: 1.Acute infarct involving the right SHEA and MCA territories with associated local mass effect and 2 mm right to left midline shift. 2.Trace patchy susceptibility artifacts and the right parietal lobe may represent trace petechial hemorrhage. Otherwise, no evidence of hemorrhagic transformation. These findings were discussed in detail with the patient's care provider, Dr. Brannon by Dr. Lira via telephone at [phone] on 10/14/2022 with readback comprehension and verification. Report dictated by Miguel Escamilla MD (radiology asst) I, Sundar Devine MD have personally reviewed and interpreted this examination/study. > Interpreting Provider: Sundar Devine MD on 10/14/2022 1:12 PM Narrative 10/14/2022 1:12 PM CDT PROCEDURE: ??MRI BRAIN WO CONTRAST, DATE/TIME OF EXAM: ??10/14/2022 12:00 AM, LOCATION ??[facility] INDICATION: R53.1: Weakness ADDITIONAL CLINICAL INFORMATION: Ordering Provider Reason For Exam: ??Acute ischemic stroke EXAMINATION: Magnetic resonance imaging (MRI) of the brain without contrast TECHNIQUE: MRI of the brain was performed without contrast according to standard protocol. CONTRAST: ??None. COMPARISON: MRA of the brain dated 12/11/2021, as well as CT of the head dated 10/13/2022, as well as MRI of the brain dated 12/11/2021 FINDINGS: Trace patchy susceptibility artifacts and the right parietal lobe may represent trace petechial hemorrhage. Otherwise, no evidence of acute or chronic hemorrhage is identified. There is large area of infarct involving the right frontal, parietal, and temporal lobe, as well as part of right basal ganglia, including putamen and caudate nuclei. This belong to the right SHEA and MCA territory. There is associated edema and mass effect on adjacent sulci in the right lateral ventricle with approximately 2 mm right to left midline shift. There is decreased flow void in the right MCA and the internal carotid artery. The ventricles are nondilated. Mild periventricular white matter FLAIR hyperintensities are nonspecific, but can be seen in the setting of chronic small vessel ischemic disease. Encephalomalacia/gliosis is seen in the region of right superior frontal lobe (series 9 image 19) and right temporoparietal region (series 9 image 10). The corpus callosum and sella appear normal. The posterior fossa, brainstem, and craniocervical junction appear normal. Other than bilateral cataract extractions, the visualized portions of the orbits appear grossly unremarkable. There is mild paranasal sinus disease. There is mild opacification in the mastoid air cells, left more than right. The patient is intubated. Fluid and retained secretions in the nasopharynx. The calvarium and visualized cervical spine appear normal. Procedure Note Sundar Devine MD - 10/14/2022 PROCEDURE: MRI BRAIN WO CONTRAST, DATE/TIME OF EXAM: 10/14/2022 12:00AM, LOCATION [facility] INDICATION: R53.1: Weakness ADDITIONAL CLINICAL INFORMATION: Ordering Provider Reason For Exam: Acute ischemic stroke EXAMINATION: Magnetic resonance imaging (MRI) of the brain withoutcontrast TECHNIQUE: MRI of the brain was performed without contrast according to standard protocol. CONTRAST: None. COMPARISON: MRA of the brain dated 12/11/2021, as well as CT of the head dated 10/13/2022, as well as MRI of the brain dated 12/11/2021 FINDINGS: Trace patchy susceptibility artifacts and the right parietal lobe may represent trace petechial hemorrhage. Otherwise, no evidence of acute or chronic hemorrhage is identified. There is large area of infarctinvolving the right frontal, parietal, and temporal lobe, as well as part of right basal ganglia, including putamen and caudate nuclei. This belong to the right SHEA and MCA territory. There is associated edema and mass effecton adjacent sulci in the right lateral ventricle with approximately 2 mmright to left midline shift. There is decreased flow void in the right MCA and the internal carotid artery. The ventricles are nondilated. Mild periventricular white matter FLAIR hyperintensities are nonspecific, but can be seen in the setting ofchronic small vessel ischemic disease. Encephalomalacia/gliosis is seen in the region of right superior frontal lobe (series 9 image 19) and right temporoparietal region (series 9 image 10). The corpus callosum andsella appear normal. The posterior fossa, brainstem, and craniocervicaljunction appear normal. Other than bilateral cataract extractions, the visualized portions ofthe orbits appear grossly unremarkable. There is mild paranasal sinusdisease. There is mild opacification in the mastoid air cells, left more thanright. The patient is intubated. Fluid and retained secretions in thenasopharynx. The calvarium and visualized cervical spine appear normal. IMPRESSION: 1.Acute infarct involving the right SHEA and MCA territories withassociated local mass effect and 2 mm right to left midline shift. 2.Trace patchy susceptibility artifacts and the right parietal lobe may represent trace petechial hemorrhage. Otherwise, no evidence ofhemorrhagic transformation. These findings were discussed in detail with the patient's careprovider, Dr. Brannon by Dr. Lira via telephone at [phone] on 10/14/2022 with readback comprehension and verification. Report dictated by Miguel Escamilla MD (radiology asst) I, Sundar Devine MD have personally reviewed and interpretedthis examination/study. > Interpreting Provider: Sundar Devine MD on 10/14/2022 1:12 PM Bertha Randolph MD MR ORDERABLES * (ABNORMAL) TROPONIN-I HIGH SENSITIVE (10/13/2022 3:07 PM CDT) Only the most recent of2 resultswithin the time period is included. Troponin I High Sensitive 60(H) <=35 ng/L 10/13/2022 3:49 PM CDT [facility] Blood BLOOD SPECIMEN / Unknown Venipuncture / Unknown 10/13/2022 3:07 PM CDT 10/13/2022 3:14 PM CDT Jorge Hall MD LAB - CHEMISTRY [facility] Organization Address City/State/ZIP Co de Phone Number [facility] [address] [place] [phone], [facility] [phone] * XR CHEST 1VW PORTABLE (10/13/2022 12:10 PM CDT) Only the most recent of5 resultswithin the time period is included. Anatomical Region Laterality Modality Chest Radiographic Evelyn ging 10/13/2022 1:17 PM CDT Narrative 10/13/2022 2:14 PM CDT EXAMINATION: XR CHEST 1VW PORTABLE HISTORY: E87.29: Respiratory acidosis COMPARISON: Chest radiograph 10/13/2022 at 1:46 AM FINDINGS/IMPRESSION: Lines: *Endotracheal tube terminates within the mid thoracic trachea. *A loop recorder is partially visualized superimposing the left chest. Aside from mild bibasilar atelectasis, there is no confluent consolidation. No pleural effusion is seen. No pneumothorax is identified. The cardiac silhouette is within normal limits. Aortic atherosclerosis is noted. The superior mediastinal contours are within normal limits. No acute osseous abnormality is identified. Report dictated by Oscar Santizo M.D. (radiology asst) 10/13/2022 7:05 AM CEDRIC Orourke MD have personally reviewed and interpreted this examination/study. > Interpreting Provider: CEDRIC FLORES MD on 10/13/2022 2:14 PM Procedure Note Cedric Flores MD - 10/13/2022 EXAMINATION: XR CHEST 1VW PORTABLE HISTORY: E87.29: Respiratory acidosis COMPARISON: Chest radiograph 10/13/2022 at 1:46 AM FINDINGS/IMPRESSION: Lines: *Endotracheal tube terminates within the mid thoracic trachea. *A loop recorder is partially visualized superimposing the left chest. Aside from mild bibasilar atelectasis, there is no confluentconsolidation. No pleural effusion is seen. No pneumothorax is identified. The cardiac silhouette is within normal limits. Aortic atherosclerosisis noted. The superior mediastinal contours are within normal limits. Noacute osseous abnormality is identified. Report dictated by Oscar Santizo M.D. (radiology asst) 10/13/2022 7:05 AM CEDRIC Orourke MD have personally reviewed and interpreted this examination/study. > Interpreting Provider: CEDRIC FLORES MD on 10/13/2022 2:14 PM Jorge Hall MD DIAGNOSTIC IMAGING O RDERABLES * (ABNORMAL) URINE DRUG SCREEN IMMUNOASSAY (10/13/2022 6:40 AM CDT) [facility] Amphetamines Screen Urine Negative Negative : < 1000 ng/mL 10/13/2022 7:20 AM CDT [facility] Barbiturates Screen Urine Negative Negative : < 200 ng/mL 10/13/2022 7:20 AM [facility] Benzodiazepine Screen Urine Negative Negative : < 200 ng/mL 10/13/2022 7:20 AM [facility] Opiates Urine Positive(A) Negative : < 300 ng/mL 10/13/2022 7:20 AM [facility] Comment:Positive urine opiat e screening results should be confirmed by another generally accepted non-immunological method such as gas chromatography or mass spectrometry. Cocaine Metabolites Urine Negative Negative : < 300 ng/mL 10/13/2022 7:20 AM [facility] Phencyclidine Screen Urine Negative Negative : < 25 ng/ml 10/13/2022 7:20 AM [facility] Cannabinoids Screen Urine Negative Negative : <50 ng/mL 10/13/2022 7:20 AM [facility] Methadone Screen Urine Negative Negative : < 300 ng/mL 10/13/2022 7:20 AM [facility] Fentanyl Screen Urine Negative Negative : <1.5 ng/mL 10/13/2022 7:20 AM [facility] [facility] Urine URINE / Unknown Collection / Unknown 10/13/2022 6:40 AM T 10/13/2022 6:44 AM [facility] - 10/13/2022 7:20 AM [facility] The Urine Toxicology Screening Panel does not screen for Propoxyphene, Meprobamate, Carisoprodol, Trazodone, neri-iyv-eieglws medications and/or volatiles (Acetone, Isopropanol, Methanol or Ethylene Glycol). Ethanol, Salicylate, Acetaminophen, Tricyclic Antidepressants and several therapeutic drugs may be individually assayed in serum or plasma specimen. Toxicology testing by the [facility] is an aid to medical diagnosis and treatment of patients. No documented chain of custody was maintained. Results are intended to be used for clinical purposes only. ? Bertha Randolph MD LAB - URINE CHEMISTR Y ORDERABLES [facility] [address] [place] [address], [facility] [phone] * (ABNORMAL) BLOOD GASES ART + COOX PANEL (10/13/2022 5:35 AM [facility]) Only the most recent of3 resultswithin the time period is included. pH Arterial 7.31(L) 7.35 - 7.45 pH 10/13/2022 5:52 AM [facility] pO2 Arterial 134(H) 80 - 100 mmHg 10/13/2022 5:52 AM [facility] pCO2 Arterial 37 35 - 45 mmHg 5:52 AM [facility] HCO3 Arterial 18.6(L) 20.0 - 30.0 mmol/L 10/13/2022 5:52 AM [facility] BE Arterial -7.0(L) -2.0 - 2.0 mmol/L 10/13/2022 5:52 AM [facility] Oxyhemoglobin Arterial 97.5 % 10/13/2022 5:52 AM [facility] Dexoyhemoglobin (HHB) % 0.0 % 10/13/2022 5:52 AM [facility] Methemoglobin 1.0 0.0 - 2.0 % 10/13/2022 5:52 AM [facility] Carboxyhemoglobin 1.4 0.0 - 2.0 % 2022 5:52 AM [facility] O2 Content Arterial 16.7 Interpret within clinical context ml/dL 10/13/2022 5:52 AM [facility] Hemoglobin by COOX 12.0 12.0 - 17.6 g/dL 10/13/2022 5:52 AM [facility] O2 Saturation Arterial 100 90 - 100 % 10/13/2022 5:52 AM [facility] FI O2 Arterial 50.0 % 10/13/2022 5:52 AM [facility] Blood, arterial ARTERIAL BLOOD SPECIMEN / Unknown Arterial Puncture / Unknown 10/13/2022 5:35 AM CDT 10/13/2022 5:42 AM CDT Narrative [facility] - 10/13/2022 5:52 AM T Carboxyhemoglobin Normal Concentration: Non-smokers: 0-2%; Smokers: 0-9%; Toxic: >20% Jorge Hall MD LAB - BLOOD GASES OR DERABLES [facility] [address] [place] [address], [facility] [phone] * (ABNORMAL) LIPID PROFILE (10/13/2022 2:28 AM T) Only the most recent of2 resultswithin the time period is included. [facility] Cholesterol Total 148 <200 mg/dL 10/13/2022 3:05 AM [facility] HDL 40(L) >40 mg/dL 10/13/2022 3:05 AM [facility] Comment: ATP III Classification of HDL Cholesterol: ? <40 mg/dL: ??Considered a major risk factor. ? >60 mg/dL: ??Considered a negative risk factor. ? LDL Calculated 85 <100 mg/dL 10/13/2022 3:05 AM [facility] Comment: ATP III Classification of LDL Cholesterol: ?<100 mg/dL: ??Optimal ? 100 - 129 mg/dL: ??Near Optimal/Above Optimal ? 130 - 159 mg/dL: ??Borderline High ? 160 - 189 mg/dL: ??High ?>190 mg/dL: ??Very High ? Triglycerides 117 <150 mg/dL 10/13/2022 3:05 AM CDT [facility] Comment: ATP III Classification of Triglycerides: ?<150 mg/dL: ??Normal ? 150 - 199 mg/dL: ??Borderline High ? 200 - 400 mg/dL: ??High ?>500 mg/dL: ??Very High Blood BLOOD SPECIMEN / Unknown Venipuncture / Unknown 10/13/2022 2:28 AM CDT 10/13/2022 2:37 AM CDT Bertha Randolph MD LAB - CHEMISTRY [place] Performing Organization Address City/State/[facility] Co de Phone Number [facility] [address] [place] [phone], [facility] [phone] * CT NECK SOFT TISSUE W CONT (10/13/2022 1:28 AM CDT) Anatomical Region Laterality Modality Head Computed Tomogra phy 10/13/2022 2:34 AM CDT Impressions 10/13/2022 10:39 AM CDT IMPRESSION: 1.Findings concerning for right peritonsillar abscess with associated diffuse pharyngitis and extensive laryngeal edema, extending to the level of the supraglottic larynx, resulting in airway compromise status post endotracheal intubation. Preliminary findings were discussed with the patient's care provider, Dr. Brannon by Dr. Cleveland via telephone at 0248 on 10/13/2022 with readback comprehension and verification. > Dictated by Dean Cleveland M.D. (radiology asst) Sundar Orourke MD have personally reviewed and interpreted this examination/study. > Interpreting Provider: Sundar Devine MD on 10/13/2022 10:39 AM Narrative 10/13/2022 10:39 AM CDT PROCEDURE: ??CT NECK SOFT TISSUE W CONT, DATE/TIME OF EXAM: ??10/13/2022 1:29 AM, LOCATION ??[facility] INDICATION: R06.00: Dyspnea, unspecified type ADDITIONAL CLINICAL INFORMATION: Ordering Provider Reason For Exam: ??Peritonsillar abscess Technologist Note: ??None. Additional: ??Per chart review, patient was difficult to intubate and multiple attempts were required. CONTRAST: ??IOPAMIDOL 76 % IV SOLN:75 mL EXAMINATION: ??Computed tomography (CT) of the neck with contrast TECHNIQUE: CT of the neck was performed following the uneventful administration of 75 mL Isovue-370 contrast according to standard protocol. CT dose reduction technique was used, including Automated Exposure Control. COMPARISON: CT angiogram of the neck performed 10/30 FINDINGS: The patient is intubated. Extensive edema of the newton of the nasopharynx, oropharynx, and hypopharynx as well as the soft palate and uvula and the aryepiglottic folds. Retained secretions are seen in the nasopharynx. There is extensive edema of the laryngopharynx, extending to the supraglottic larynx. There is enlargement of the right tonsillar pillar with approximately a small area of peripherally enhancing fluid collection measuring approximately 11 mm within right peritonsillar region (series 5, image 64), concerning for right peritonsillar abscess. There is surrounding larger area of soft tissue thickening and diffuse enhancement encroaching on the right parapharyngeal space and side of the pharyngeal airway. Fat stranding can be seen within the neck soft tissues overlying the right oropharynx of the right neck with involvement of the right carotid space (series 5, image 80). No cervical lymphadenopathy by CT size criteria. The muscles of the neck appear normal. There is advanced atherosclerotic disease involving the carotid bifurcations. The internal jugular veins appear normal. The visualized inferior airway below the endotracheal tube appears normal. The visualized portions of the posterior fossa and brain appear normal. There is cervical degenerative disc and joint disease. Status post cataract extraction. Diffuse opacification in the ethmoid air cells. Opacified left kenneth bullosa. Small right kenneth bullosa.. Paraseptal emphysema and lung scarring. Procedure Note Sundar Devine MD - 10/13/2022 PROCEDURE: CT NECK SOFT TISSUE W CONT, DATE/TIME OF EXAM: :29 AM, LOCATION [facility] INDICATION: R06.00: Dyspnea, unspecified type ADDITIONAL CLINICAL INFORMATION: Ordering Provider Reason For Exam: Peritonsillar abscess Technologist Note: None. Additional: Per chart review, patient was difficult to intubate and multiple attempts were required. CONTRAST: IOPAMIDOL 76 % IV SOLN:75 mL EXAMINATION: Computed tomography (CT) of the neck with contrast TECHNIQUE: CT of the neck was performed following the uneventful administration of 75 mL Isovue-370 contrast according to standardprotocol. CT dose reduction technique was used, including Automated ExposureControl. COMPARISON: CT angiogram of the neck performed 10/30 FINDINGS: The patient is intubated. Extensive edema of the newton of thenasopharynx, oropharynx, and hypopharynx as well as the soft palate and uvula and the aryepiglottic folds. Retained secretions are seen in the nasopharynx.There is extensive edema of the laryngopharynx, extending to the supraglottic larynx. There is enlargement of the right tonsillar pillar with approximately a small area of peripherally enhancing fluid collection measuring approximately 11 mm within right peritonsillar region (series 5, image64), concerning for right peritonsillar abscess. There is surrounding larger area of soft tissue thickening and diffuse enhancement encroaching onthe right parapharyngeal space and side of the pharyngeal airway. Fat stranding can be seen within the neck soft tissues overlying theright oropharynx of the right neck with involvement of the right carotid space (series 5, image 80). No cervical lymphadenopathy by CT size criteria. The muscles of the neck appear normal. There is advanced atherosclerotic disease involving the carotid bifurcations. The internal jugular veins appear normal. The visualized inferior airway below the endotracheal tube appears normal.The visualized portions of the posterior fossa and brain appear normal.There is cervical degenerative disc and joint disease. Status post cataract extraction. Diffuse opacification in the ethmoid air cells. Opacifiedleft kenneth bullosa. Small right kenneth bullosa.. Paraseptal emphysema andlung scarring. IMPRESSION: 1.Findings concerning for right peritonsillar abscess with associated diffuse pharyngitis and extensive laryngeal edema, extending to thelevel of the supraglottic larynx, resulting in airway compromise status post endotracheal intubation. Preliminary findings were discussed with the patient's care provider,Dr. Brannon by Dr. Cleveland via telephone at 0248 on 10/13/2022 with readback comprehension and verification. > Dictated by Dean Cleveland M.D. (radiology asst) ISundar MD have personally reviewed and interpretedthis examination/study. > Interpreting Provider: Sundar Devine MD on 10/13/2022 10:39 AM Jorge Hall MD CT ORDERABLES * TROPONIN-I HIGH SENSITIVE REFLEX 1HOUR (10/12/2022 10:31 PM CDT) Troponin I High Sensitive 14 <=35 ng/L 10/12/2022 11:26 PM CDT [facility] Delta Troponin I HS 10/12/2022 11:26 PM CDT [facility] Comment:Delta value intentio queenie not calculated. Baseline to 1 hour specimen collection interval exceeded. Blood BLOOD SPECIMEN / Unknown Venipuncture / Unknown 10/12/2022 10:31 PM CDT 10/12/2022 10:36 PM CDT Bertha Randolph MD LAB - CHEMISTRY FELICE MILES [facility] Organization Address City/State/ZIP Co de Phone Number [facility] [address] [place] [address], [facility] [phone] * (ABNORMAL) HEMOGLOBIN A1C (10/12/2022 10:31 PM CDT) Only the most recent of2 resultswithin the time period is included. Hemoglobin A1c 7.7(H) <=5.6 % 10/13/2022 8:30 AM CDT [facility] Estimated Average Glucose 174 mg/dL 10/13/2022 8:30 AM CDT [facility] Comment: HbA1c Interpretation: Normal : < 5.7% Pre-diabetes: 5.7-6.4% Diabetes: Equal to or greater than 6.5% Test results diagnostic of diabetes should be repeated for confirmation. Treatment target values recommended by ADA and other clinical organizations should be used to evaluate metabolic control in patients. Reference: [employer], Standards of Care in Diabetes -2020 In patients 70 years and older consider HbA1c target range of 7.0-7.5% (Reference: Israel Marcos et al. JAMDA. 2012) The Sebia assay for the measurement of HbA1c is a National Glycohemoglobin Standardization Program (NGSP) certified method. Blood BLOOD SPECIMEN / Unknown Venipuncture / Unknown 10/12/2022 10:31 PM CDT 10/12/2022 10:36 PM CDT Bertha Randolph MD LAB - CHEMISTRY ORDVimal MILES Performing Organization Address [facility] Co de Phone Number [address] [address], [facility] [phone] * PT-INR [facility] (10/12/2022 8:21 PM CDT) Only the most recent of3 resultswithin the time period is included. PT 13.8 12.1 - 14.8 Seconds 10/12/2022 8:58 PM CDT [facility] INR 1.1 See Comment 10/12/2022 8:58 PM CDT [facility] Comment:The suggested therap eutic range for standard coumadin (warfarin) therapy is an INR of 2.0-3.0. For high-risk patients (Mechanical Mitral Valve Prosthesis, etc.), the suggested prophylactic therapeutic range is an INR of 2.5-3.5. Blood BLOOD SPECIMEN / Unknown Venipuncture / Unknown 10/12/2022 8:21 PM CDT 10/12/2022 8:35 PM CDT Ketan Snowden MD LAB - COAGULATION OR DERABLES Performing Organization Address [facility] Co de Phone Number [address] [address], [facility] [phone] * TROPONIN-I HIGH SENSITIVE BASELINE + 1HR (10/12/2022 8:21 PM CDT) Troponin I High Sensitive 13 <=35 ng/L 10/12/2022 9:09 PM CDT [facility] Blood BLOOD SPECIMEN / Unknown Venipuncture / Unknown 10/12/2022 8:21 PM CDT 10/12/2022 8:35 PM CDT Bertha Randolph MD LAB - CHEMISTRY [place] [address] [place] [address], [facility] [phone] * CT ANGIO BRAIN NECK STROKE (10/12/2022 7:42 PM CDT) Anatomical Region Laterality Modality Head Computed Tomogra phy 10/12/2022 7:52 PM CDT Impressions 10/12/2022 8:51 PM CDT IMPRESSION: 1.Re-demonstrated long segment occlusion of the right ICA from the carotid bulb to the terminus with reconstitution of flow to the right SHEA and MCA via the [place] of Arvizu. Diminished opacification of the right MCA M1 segment and distal branches with notable markedly diminutive opacification versus nonopacification of the MCA M3 segment and beyond. Recommend follow-up brain MRI for further evaluation. 2.Please refer to prior same day head CT for description additional abnormalities and recommendations. Results of this exam were verbally discussed by Dr. Zelda Willams with Dr. Brannon on 10/12/2022 at 7:44 PM for a Critical Stroke Protocol with readback confirmation and verification. The images were reviewed by attending physician Dr. Zelda Willams prior to this communication. Report dictated by Gilbert Morrow MD (radiology asst). I, Zelda Willams MD, PhD have personally reviewed and interpreted this examination/study. > Interpreting Provider: Zelda Willams MD, PhD on 10/12/2022 8:51 PM Narrative 10/12/2022 8:51 PM CDT EXAM: CT ANGIO BRAIN NECK STROKE, DATE/TIME OF EXAM: 10/12/2022 7:42 PM, LOCATION: ??[facility] HISTORY: Code Stroke EXAMINATION: CT angiogram images of the head and neck acquired with intravenous contrast. Multiplanar reformations acquired. TECHNIQUE: CT angiography of the head and neck was obtained after administration of intravenous contrast. Three dimensional postprocessing was performed by the technologist and sent to the workstation for review. NASCET criteria was utilized for evaluation of carotid stenosis. Additionally, Viz.AI was used for large vessel occlusion detection. CT dose reduction technique was used, including Automated Exposure Control. CONTRAST: ??IOPAMIDOL 76 % IV SOLN:85 mL ?? COMPARISON: Head CT 10/12/2022 at 7:24 PM. Brain MRI and brain and neck MRA 12/11/2021. FINDINGS: CTA HEAD: Re-demonstrated occluded internal carotid artery (ICA) from the skull base to the terminus. Reconstitution of flow to the right anterior cerebral artery (SHEA) A1 segment and right middle cerebral artery (MCA) via the [place] of Arvizu/patent anterior communicating artery. Diminished opacification of the right MCA M1 segment and distal branches with notable markedly diminutive opacification versus nonopacification of the MCA M3 segment and beyond. No occlusion or hemodynamically significant stenosis elsewhere of the major intracranial arteries. Patent intracranial left ICA, left MCA, bilateral ACAs, vertebral artery V4 segments, basilar artery, and posterior cerebral arteries. Mild calcific atherosclerosis of the cavernous and clinoid segments of the left ICA without occlusion or hemodynamically significant stenosis. Incidentally noted -type left posterior cerebral artery with a hypoplastic left P1 segment. No aneurysm of the major intracranial arteries. CTA NECK: GREAT VESSELS: Visualized segments are patent. Mild calcific noncalcific atherosclerosis of the aortic arch and branches. RIGHT CCA/ICA: Re-demonstrated long segment occlusion of the right ICA from the carotid bulb involving the cervical, petrous, cavernous, and supraclinoid ICA segments. Mild noncalcific atherosclerosis of the common carotid artery without occlusion or hemodynamically significant stenosis. LEFT CCA/ICA: No occlusion. ICA at the carotid bifurcation with less than 50% stenosis by NASCET criteria secondary to calcific and noncalcific atherosclerosis. Mild noncalcific atherosclerosis of the common carotid artery without occlusion or hemodynamically significant stenosis. No evidence of dissection. VERTEBRAL ARTERIES: No occlusion or hemodynamically significant stenosis. No evidence of dissection. OTHER: Partially imaged lung apices are clear. Calcified subcarinal lymph nodes, suggestive of prior healed granulomatous disease. No neck mass or suspicious lymph nodes. No acute or suspicious osseous abnormality. Mild degenerative changes of the cervical spine. Procedure Note Zelda Willams MD - 10/12/2022 EXAM: CT ANGIO BRAIN NECK STROKE, DATE/TIME OF EXAM: 10/12/2022 7:42 PM, LOCATION: [facility] HISTORY: Code Stroke EXAMINATION: CT angiogram images of the head and neck acquired with intravenous contrast. Multiplanar reformations acquired. TECHNIQUE: CT angiography of the head and neck was obtained after administration of intravenous contrast. Three dimensional postprocessing was performed by the technologist and sent to the workstation forCourse Heroview. NASCET criteria was utilized for evaluation of carotid stenosis. Additionally, Viz.AI was used for large vessel occlusion detection. CTdose reduction technique was used, including Automated Exposure Control. CONTRAST: IOPAMIDOL 76 % IV SOLN:85 mL COMPARISON: Head CT 10/12/2022 at 7:24 PM. Brain MRI and brain and neckMRA 12/11/2021. FINDINGS: CTA HEAD: Re-demonstrated occluded internal carotid artery (ICA) fromthe skull base to the terminus. Reconstitution of flow to the right anterior cerebral artery (SHEA) A1 segment and right middle cerebral artery (MCA)via the [place] of Arvizu/patent anterior communicating artery. Diminished opacification of the right MCA M1 segment and distal branches withnotable markedly diminutive opacification versus nonopacification of the MCA M3 segment and beyond. No occlusion or hemodynamically significant stenosis elsewhere of themajor intracranial arteries. Patent intracranial left ICA, left MCA, bilateral ACAs, vertebral artery V4 segments, basilar artery, and posteriorcerebral arteries. Mild calcific atherosclerosis of the cavernous and clinoid segments of the left ICA without occlusion or hemodynamicallysignificant stenosis. Incidentally noted -type left posterior cerebral artery with a hypoplastic left P1 segment. No aneurysm of the major intracranial arteries. CTA NECK: GREAT VESSELS: Visualized segments are patent. Mild calcific noncalcific atherosclerosis of the aortic arch and branches. RIGHT CCA/ICA: Re-demonstrated long segment occlusion of the right ICAfrom the carotid bulb involving the cervical, petrous, cavernous, and supraclinoid ICA segments. Mild noncalcific atherosclerosis of thecommon carotid artery without occlusion or hemodynamically significantstenosis. LEFT CCA/ICA: No occlusion. ICA at the carotid bifurcation with lessthan 50% stenosis by NASCET criteria secondary to calcific and noncalcific atherosclerosis. Mild noncalcific atherosclerosis of the common carotid artery without occlusion or hemodynamically significant stenosis. No evidence of dissection. VERTEBRAL ARTERIES: No occlusion or hemodynamically significantstenosis. No evidence of dissection. OTHER: Partially imaged lung apices are clear. Calcified subcarinallymph nodes, suggestive of prior healed granulomatous disease. No neck mass or suspicious lymph nodes. No acute or suspicious osseous abnormality. Mild degenerative changes of the cervical spine. IMPRESSION: 1.Re-demonstrated long segment occlusion of the right ICA from thecarotid bulb to the terminus with reconstitution of flow to the right SHEA andMCA via the [place] of Arvizu. Diminished opacification of the right MCA M1 segment and distal branches with notable markedly diminutiveopacification versus nonopacification of the MCA M3 segment and beyond. Recommend follow-up brain MRI for further evaluation. 2.Please refer to prior same day head CT for description additional abnormalities and recommendations. Results of this exam were verbally discussed by Dr. Zelda Willams with Dr. Brannon on 10/12/2022 at 7:44 PM for a Critical Stroke Protocol with readback confirmation and verification. The images were reviewed by attending physician Dr. Zelda Willams prior to this communication. Report dictated by Gilbert Morrow MD (radiology asst). I, Zelda Willams MD, PhD have personally reviewed and interpreted this examination/study. > Interpreting Provider: Zelda Willams MD, PhD on 10/12/2022 8:51 PM Ketan Snowden MD CT ORDERABLES * CT BRAIN - Stroke (10/12/2022 7:32 PM CDT) Only the most recent of3 resultswithin the time period is included. Anatomical Region Laterality Modality Head Computed Tomogra phy 10/12/2022 7:47 PM CDT Impressions 10/12/2022 8:20 PM CDT IMPRESSION: 1.No acute intracranial hemorrhage. 2.Apparent hypodensity of the right anterior temporal lobe and insular region, which is nonspecific and may be attributable to motion artifact or possibly representing areas of evolving acute infarct. Recommend follow-up brain MRI without contrast for further evaluation. 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 4.Mildly expansile soft tissue lesion of the mid-to-left aspect of the sella turcica measuring 2.1 x 1.6 cm, which is associated with thinning of the dorsum sellae and is incompletely assessed on this examination. Recommend follow-up sella MRI without and with contrast. Results of this exam were verbally discussed by Dr. Zelda Willams with Dr. Brannon on 10/12/2022 at 7:44 PM for a Critical Stroke Protocol with readback confirmation and verification. The images were reviewed by attending physician Dr. Zelda Willams prior to this communication. > Interpreting Provider: Zelda Willams MD, PhD on 10/12/2022 8:20 PM Narrative 10/12/2022 8:20 PM CDT EXAM: CT BRAIN STROKE, DATE/TIME OF EXAM: 10/12/2022 7:32 PM, LOCATION: ??[facility] HISTORY: Code Stroke EXAMINATION: CT scan of the head without intravenous contrast TECHNIQUE: CT of the head was performed without intravenous contrast according to standard protocol. CT dose reduction technique was used, including Automated Exposure Control. COMPARISON: Head CT 12/12/2021. Brain MRI 12/11/2021. FINDINGS: Examination limited by mild motion degradation. Within this limitation, the following assessment is made: BRAIN PARENCHYMA: No acute parenchymal hemorrhage. Apparent hypodensity of the right anterior temporal lobe and insular region, which is nonspecific and may be attributable to motion artifact or possibly representing areas of evolving acute infarct. No mass effect, midline shift, or brain herniation. Re-demonstrated areas of encephalomalacia involving the right frontal and right parietal lobes, consistent with chronic infarcts involving the right middle cerebral artery (MCA) vascular territory and right anterior cerebral artery (SHEA)/MCA watershed territory. Re-demonstrated area of encephalomalacia involving the right occipital lobe, consistent with a chronic infarct involving the right posterior cerebral artery ([employer]) vascular territory. Multiple small chronic lacunes of the cerebellar hemispheres, left greater than right. Mild scattered white matter hypodensities, which are nonspecific but likely represents the sequela of chronic microangiopathic change. Mild generalized parenchymal volume loss, which is commensurate for age. VENTRICLES/EXTRA-AXIAL SPACES: No ventriculomegaly or extra-axial collection. Basal cisterns are patent. EXTRACRANIAL STRUCTURES: No acute osseous abnormality. Normal soft tissues. Mildly expansile soft tissue lesion of mid-to-left aspect of the sella turcica measuring 2.1 x 1.6 cm (09/03), which is associated with thinning of the dorsum sellae and is incompletely assessed on this examination. Paranasal sinuses and mastoids demonstrate no significant abnormality. Bilateral lens replacement; otherwise, orbits are unremarkable. Mild calcific atherosclerosis of the carotid siphons. Procedure Note Zelda Willams MD - 10/12/2022 EXAM: CT BRAIN STROKE, DATE/TIME OF EXAM: 10/12/2022 7:32 PM, LOCATION:[facility] HISTORY: Code Stroke EXAMINATION: CT scan of the head without intravenous contrast TECHNIQUE: CT of the head was performed without intravenous contrast according to standard protocol. CT dose reduction technique was used, including Automated Exposure Control. COMPARISON: Head CT 12/12/2021. Brain MRI 12/11/2021. FINDINGS: Examination limited by mild motion degradation. Within this limitation,the following assessment is made: BRAIN PARENCHYMA: No acute parenchymal hemorrhage. Apparent hypodensity of the right anterior temporal lobe and insular region, which is nonspecific and may be attributable to motion artifactor possibly representing areas of evolving acute infarct. No mass effect, midline shift, or brain herniation. Re-demonstrated areas of encephalomalacia involving the right frontaland right parietal lobes, consistent with chronic infarcts involving theright middle cerebral artery (MCA) vascular territory and right anteriorcerebral artery (SHEA)/MCA watershed territory. Re-demonstrated area of encephalomalacia involving the right occipital lobe, consistent with a chronic infarct involving the right posterior cerebral artery ([employer]) vascular territory. Multiple small chronic lacunes of the cerebellar hemispheres, left greater than right. Mild scattered white matter hypodensities, which are nonspecific butlikely represents the sequela of chronic microangiopathic change. Mildgeneralized parenchymal volume loss, which is commensurate for age. VENTRICLES/EXTRA-AXIAL SPACES: No ventriculomegaly or extra-axial collection. Basal cisterns are patent. EXTRACRANIAL STRUCTURES: No acute osseous abnormality. Normal softtissues. Mildly expansile soft tissue lesion of mid-to-left aspect of the sella turcica measuring 2.1 x 1.6 cm (09/03), which is associated with thinningof the dorsum sellae and is incompletely assessed on this examination. Paranasal sinuses and mastoids demonstrate no significant abnormality. Bilateral lens replacement; otherwise, orbits are unremarkable. Mild calcific atherosclerosis of the carotid siphons. IMPRESSION: 1.No acute intracranial hemorrhage. 2.Apparent hypodensity of the right anterior temporal lobe and insular region, which is nonspecific and may be attributable to motion artifactor possibly representing areas of evolving acute infarct. Recommendfollow-up brain MRI without contrast for further evaluation. 3.Multiple chronic infarcts of the right cerebral hemisphere andmultiple small chronic lacunes of the left greater than right cerebellarhemispheres as described. 4.Mildly expansile soft tissue lesion of the mid-to-left aspect of the sella turcica measuring 2.1 x 1.6 cm, which is associated with thinningof the dorsum sellae and is incompletely assessed on this examination. Recommend follow-up sella MRI without and with contrast. Results of this exam were verbally discussed by Dr. Zelda Willams with Dr. Brannon on 10/12/2022 at 7:44 PM for a Critical Stroke Protocol with readback confirmation and verification. The images were reviewed by attending physician Dr. Zelda Willams prior to this communication. > Interpreting Provider: Zelda Willams MD, PhD on 10/12/2022 8:20 PM Ketan Snowden MD CT ORDERABLES * IR CAROTID CEREBRAL ANGIOGRAM (01/19/2022 11:07 AM CDT) Anatomical Region Laterality Modality Head X-Ray Angiograph y 01/22/2022 9:59 AM CDT Impressions 02/02/2022 12:54 PM CDT Impression: -The KINSEY is occluded -The flow limiting stenosis of the LICA is artifactual and represents elevated velocities due to increased compensatory flow. I, Ru Addison MD have personally reviewed and interpreted this examination/study. > Interpreting Provider: Ru Addison MD on 02/02/2022 12:54 PM Narrative 02/02/2022 12:54 PM CDT Procedure: Diagnostic Catheter Cerebral Angiogram Comparison Study: CTA History: The patient is a 66 year-old Male who presents with I65.22: Carotid stenosis, left I65.21: Carotid occlusion, right . He is here for catheter angiography to . Clinical Data Abstractor: Jc Addison Hide And Skin Processing Worker(s): Christy Bolivar Vessels: Ultrasound Guided Access of Radial Artery Right Radial Artery Angiogram Left Subclavian Artery Angiogram: Cervical and Cerebral Left Vertebral Artery Angiogram: Cervical and Cerebral Left Common Carotid Artery Angiogram: Cervical and Cerebral Right Common Carotid Artery Angiogram: Cervical and Cerebral Right Subclavian Artery Angiogram: Cervical and Cerebral Anesthesia: Moderate sedation on this adult patient was ordered by the copper flotation operator, administered intravenously in my presence, and monitored by the procedure nurse as an independent trained observer who was present throughout the procedure. The following parameters were monitored: oxygen saturation, heart rate, blood pressure, and response to care. Total physician intra-service sedation time was 27 mins. For details on sedation patient evaluation, please review the evaluation in [facility]. For details on monitored clinical parameters during the intra-service sedation time, please review the procedure nurse documentation in [facility]. Procedural detail: The risks, benefits, and alternatives to procedure were discussed in detail with the patient and his family. These included but were not limited to the risk of blood loss, vessel injury, stroke, renal injury, and contrast allergy. The patient was brought to the biplane angiography suite where he underwent prep and drape procedures. Limited ultrasound of the right radial artery demonstrated a patent vessel. A orozco scale image was documented. The right radial artery was accessed using a micropuncture needle. Following a series of exchanges, a 5 Malay 11 cm Glidesheath slender was placed in the radial artery. A radial angiogram was performed through the sheath. A spasmolytic cocktail containing 3000u heparin, 2.5mg verapamil, and 200mcg of nitroglycerin was administered. A 5 Malay Glidecath Case 2 diagnostic catheter along with a 0.035 Glidewire was navigated into the aortic arch. The catheter was used to select the left subclavian artery followed by the left vertebral artery and a cervical and cerebral angiogram was obtained. The catheter was returned to the arch and used to select the left common carotid artery and a cervical and cerebral angiogram was obtained. The catheter was returned to the arch and used to select the brachiocephalic artery followed by the right common carotid artery and a cervical and cerebral angiogram was obtained. The catheter was returned to the brachiocephalic artery and used to select the right subclavian artery and a cervical and cerebral angiogram was obtained. All catheters and sheaths were removed from the arterial system. Hemostasis was achieved using a 50 [employer] radial band closure device. Hemostasis was immediate at the end of the closure procedure. The right radial artery pulse was palpable at the end of the closure procedure. The patient tolerated the procedure without immediate complications. He was returned to the recovery area in hemodynamically stable condition and neurologically unchanged. The estimated blood loss was less than 10 mL. A total of ??12 ??minutes of fluoroscopic time and 65 ml of Isovue-300 contrast were utilized for the study. Findings: There was good arterial, capillary, and venous opacification of all angiographic runs. The left subclavian artery cervical angiogram reveals a tortuosity and diffuse atherosclerosis without flow limitation. The origin of the vertebral as well as its cervical segment are affected by atherosclerosis as well. The left vertebral artery angiogram shows opacification with washout of the basilar artery and the posterior cerebrals. There is little contribution to the anterior circulation. The left common carotid artery angiogram reveals diffuse atherosclerotic changes with no flow limitation. There is severe tortuosity. The visualized branches of the external carotid artery are irregular but there is no atherosclerosis. The cervical segment of the internal carotid artery is very tortuous. There is no flow limitatio in the intracranial circulation and the anterior communicating artery supplies the right anterior circulation. The right common carotid artery is affected by atherosclerosis and there is occlusion of the right internal carotid artery. The right subclavian artery cervical angiogram reveals a tortuosity and diffuse atherosclerosis without flow limitation. The origin of the vertebral as well as its cervical segment are affected by atherosclerosis as well. There is opacification with washout of the basilar artery and the posterior cerebrals. There is little contribution to the anterior circulation. Procedure Note Ru Addison MD - 02/02/2022 Procedure: Diagnostic Catheter Cerebral Angiogram Comparison Study: CTA History: The patient is a 66 year-old Male who presents with I65.22: Carotid stenosis, left I65.21: Carotid occlusion, right . He is here for catheter angiography to. Clinical Data Abstractor: Jc Addison Hide And Skin Processing Worker(s): Christy Bolivar Vessels: Ultrasound Guided Access of Radial Artery Right Radial Artery Angiogram Left Subclavian Artery Angiogram: Cervical and Cerebral Left Vertebral Artery Angiogram: Cervical and Cerebral Left Common Carotid Artery Angiogram: Cervical and Cerebral Right Common Carotid Artery Angiogram: Cervical and Cerebral Right Subclavian Artery Angiogram: Cervical and Cerebral Anesthesia: Moderate sedation on this adult patient was ordered by the copper flotation operator, administered intravenously in my presence, and monitored by theprocedure nurse as an independent trained observer who was present throughout the procedure. The following parameters were monitored: oxygen saturation, heart rate, blood pressure, and response to care. Total physician intra-service sedation time was 27 mins. For details on sedation patient evaluation, please review the evaluation in [facility]. For details onmonitored clinical parameters during the intra-service sedation time, pleasereview the procedure nurse documentation in [facility]. Procedural detail: The risks, benefits, and alternatives to procedure were discussed indetail with the patient and his family. These included but were not limited tothe risk of blood loss, vessel injury, stroke, renal injury, and contrast allergy. The patient was brought to the biplane angiography suite wherehe underwent prep and drape procedures. Limited ultrasound of the rightradial artery demonstrated a patent vessel. A orozco scale image was documented.The right radial artery was accessed using a micropuncture needle. Followinga series of exchanges, a 5 Malay 11 cm Glidesheath slender was placed inthe radial artery. A radial angiogram was performed through the sheath. A spasmolytic cocktail containing 3000u heparin, 2.5mg verapamil, [id number] of nitroglycerin was administered. A 5 Malay Glidecath Case 2 diagnostic catheter along with a 0.035 Glidewire was navigated into the aortic arch. The catheter was used to select the left subclavian artery followed bythe left vertebral artery and a cervical and cerebral angiogram wasobtained. The catheter was returned to the arch and used to select the left common carotid artery and a cervical and cerebral angiogram was obtained. The catheter was returned to the arch and used to select the brachiocephalic artery followed by the right common carotid artery and a cervical and cerebral angiogram was obtained. The catheter was returned to the brachiocephalic artery and used to select the right subclavian artery lazaro cervical and cerebral angiogram was obtained. All catheters and sheaths were removed from the arterial system.Hemostasis was achieved using a [employer] radial band closure device. Hemostasis was immediate at the end of the closure procedure. The right radial artery pulse was palpable at the end of the closure procedure. The patient tolerated the procedure without immediate complications. Hewas returned to the recovery area in hemodynamically stable condition and neurologically unchanged. The estimated blood loss was less than 10 mL. A total of 12 minutes of fluoroscopic time and 65 ml of Isovue-300 contrast were utilized for the study. Findings: There was good arterial, capillary, and venous opacification of all angiographic runs. The left subclavian artery cervical angiogram reveals a tortuosity and diffuse atherosclerosis without flow limitation. The origin of the vertebral as well as its cervical segment are affected byatherosclerosis as well. The left vertebral artery angiogram shows opacification with washout of the basilar artery and the posterior cerebrals. There islittle contribution to the anterior circulation. The left common carotid artery angiogram reveals diffuse atherosclerotic changes with no flow limitation. There is severe tortuosity. Thevisualized branches of the external carotid artery are irregular but there is no atherosclerosis. The cervical segment of the internal carotid artery is very tortuous. There is no flow limitatio in the intracranialcirculation and the anterior communicating artery supplies the right anterior circulation. The right common carotid artery is affected by atherosclerosis and thereis occlusion of the right internal carotid artery. The right subclavian artery cervical angiogram reveals a tortuosity and diffuse atherosclerosis without flow limitation. The origin of the vertebral as well as its cervical segment are affected byatherosclerosis as well. There is opacification with washout of the basilar artery andthe posterior cerebrals. There is little contribution to the anterior circulation. Impression: -The KINSEY is occluded -The flow limiting stenosis of the LICA is artifactual and represents elevated velocities due to increased compensatory flow. I, Ru Addison MD have personally reviewed and interpreted this examination/study. > Interpreting Provider: Ru Addison MD on 02/02/2022 12:54 PM Ru Addison MD IR ORDERABLES * (ABNORMAL) TROPONIN I (12/13/2021 3:01 AM CDT) Only the most recent of7 resultswithin the time period is included. Troponin I 0.046(H) <0.032 ng/mL 12/13/2021 3:48 AM CDT [facility] Blood BLOOD SPECIMEN / Unknown Lab Venipuncture / Unknown 12/13/2021 3:01 AM CDT 12/13/2021 3:11 AM CDT Jorge Hall MD LAB - CHEMISTRY [facility] Organization Address City/State/ZIP Co de Phone Number [address] [address], [facility] [phone] * VAS TRANSCRANIAL DOPPLER COMP (12/12/2021 5:24 PM CDT) Anatomical Region Laterality Modality Head Intravascular Ul trasound 12/12/2021 4:20 PM CDT Narrative Procedure Note Ru Addison MD - 12/25/2021 Jorge Hall MD VASCULAR LAB ORDERAB LES * VAS CAROTID DUPLEX BILATERAL (12/12/2021 4:18 PM CDT) Anatomical Region Laterality Modality Neck Intravascular Ul trasound 12/12/2021 3:10 PM CDT Narrative Procedure Note Alan Powell MD - 12/13/2021 Jorge Hall MD VASCULAR LAB ORDERAB LES * MRI ANGIO BRAIN ARTERIAL WO CONT (12/11/2021 8:31 PM CDT) Anatomical Region Laterality Modality Head Magnetic Resonan ce 12/12/2021 8:10 AM CDT Addenda Addendum by Re Sage MD on 12/12/2021 3:45 PM CDT There is T2 hyperintensity along the posterior aspect of the sphenoid sinus surrounding the slightly enlarged left ICA (image 8 series 10,), nonspecific evaluation with contrast is recommended for further evaluation, partially empty sella with flattening ??of the pituitary gland. > Interpreting Provider: Re Sage Dr on 12/12/2021 3:43 PM Impressions 12/12/2021 10:13 AM CDT IMPRESSION: 1.Areas of the evolving infarction with cortical laminar necrosis also noted in right frontal lobe. Areas of restricted diffusion noted in the right frontal lobe including the right precentral gyrus/and paracentral lobule suggesting superimposed acute infarction. 2.Evolving chronic to subacute infarcts noted in the right parietal, temporo-occipital regions with tiny foci of associated susceptibility. These could be secondary to chronic hemosiderin staining versus petechial hemorrhages. 3.Occlusion of the right internal carotid artery from its origin with reconstitution from the cavernous segment. Slow flow is noted in the right distal cavernous, ICA terminus, proximal right MCA upto the bifurcation on [id number]-[id number]-acyesy imaging with the opacification on postcontrast imaging. The report was drafted by Maryana Sanderson MD (Molded Goods Inspector Trimmer). Critical results discussed with Dr. Becker by Dr. Sanderson on 12/12/2021 at 8:41 AM. I, Re Sage Dr have personally reviewed and interpreted this examination/study. > Interpreting Provider: Re Sage Dr on 12/12/2021 10:13 AM Narrative 12/12/2021 10:13 AM CDT PROCEDURE: ??MRI ANGIO BRAIN ARTERIAL WO CONT, MRI BRAIN WO CONTRAST, MRI ANGIO NECK W CONTRAST, DATE/TIME OF EXAM: ??12/11/2021 8:31 PM, LOCATION ??[facility] INDICATION: Left leg weakness ADDITIONAL CLINICAL INFORMATION: Ordering Provider Reason For Exam: ??left leg weakness; hx of old strokes (accession [id number]). COMPARISON: CT brain dated 12/11/2021 at 12:10 PM. MRI Brain: Restricted diffusion foci noted in the right frontal lobe and in the right paracentral lobule medially, right precentral gyrus consistent with acute infarction. Adjacent areas of laminar necrosis also noted along the right frontal lobe suggesting evolving infarction. Evolving subacute to chronic infarcts also noted involving the right parietal lobe and right temporo-occipital region with regions of minimally restricted diffusion/T2 shine through. Punctate focus of superimposed restricted diffusion noted in the right temporal lobe (image 12, series 4). Associated punctate foci of susceptibility noted in this region. Small chronic infarct also noted in the left cerebellar hemisphere, left frontal lobe. Foci of susceptibility also noted in the right parietal region at the site of evolving infarction. Foci of susceptibility in the left frontal lobe close to the vertex (image 58, series 7) could be secondary to chronic microhemorrhages. Mild chronic microvascular ischemic changes are seen in the supratentorial white matter. There is no intracranial mass or mass effect. There is no hydrocephalus or extra-axial fluid collection. The sella is within normal limits. The paranasal sinuses are clear. Trace effusion is noted within the dependent portion of the left mastoid air cells. The orbits are unremarkable. MRA brain: *Right carotid system: There is complete occlusion of the right ICA up to the cavernous segment on postcontrast imaging of MRA neck. There is decreased opacification of the right cavernous segment ICA terminus, right M1 segment could be secondary to slow flow, on the noncontrast [id number]-vh-uixptn imaging. However there is opacification of these segments including cavernous ICA terminus and M1 segments on postcontrast imaging. *Left carotid system: Patent ICA. No focal stenosis. Patent SHEA and MCA. Normal anterior communicating artery. Slightly larger caliber left ICA. *Posterior circulation: Patent vertebral arteries and basilar artery without stenosis. 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 There is no aneurysm. ?? MRA neck: Artifact slightly limits the evaluation at the origin of great vessels. *Aortic arch: Minimal irregularities along the aortic arch be secondary to atherosclerosis.. Three-vessel configuration of the branch vessel origin. *Redemonstrated occlusion of the internal carotid artery with reconstitution from cavernous segment. *Left carotid system: Patent. Mild irregularity at the carotid bulb and origin of left ICA without significant stenosis could be secondary to atherosclerosis.. Left ICA has slightly larger caliber. *Right vertebral artery: Patent. No stenosis. *Left vertebral artery: Patent. No stenosis. Procedure Note Re Sage MD - 12/12/2021 PROCEDURE: MRI ANGIO BRAIN ARTERIAL WO CONT, MRI BRAIN WO CONTRAST, MRI ANGIO NECK W CONTRAST, DATE/TIME OF EXAM: 12/11/2021 8:31 PM, [facility] INDICATION: Left leg weakness ADDITIONAL CLINICAL INFORMATION: Ordering Provider Reason For Exam: left leg weakness; hx of old strokes (accession [id number]). COMPARISON: CT brain dated 12/11/2021 at 12:10 PM. MRI Brain: Restricted diffusion foci noted in the right frontal lobe and in theright paracentral lobule medially, right precentral gyrus consistent withacute infarction. Adjacent areas of laminar necrosis also noted along theright frontal lobe suggesting evolving infarction. Evolving subacute to chronic infarcts also noted involving the right parietal lobe and right temporo-occipital region with regions ofminimally restricted diffusion/T2 shine through. Punctate focus of superimposed restricted diffusion noted in the right temporal lobe (image 12, series4). Associated punctate foci of susceptibility noted in this region. Small chronic infarct also noted in the left cerebellar hemisphere, leftfrontal lobe. Foci of susceptibility also noted in the right parietal region atthe site of evolving infarction. Foci of susceptibility in the left frontal lobe close to the vertex (image 58, series 7) could be secondary tochronic microhemorrhages. Mild chronic microvascular ischemic changes are seen in thesupratentorial white matter. There is no intracranial mass or mass effect. There is no hydrocephalusor extra-axial fluid collection. The sella is within normal limits. The paranasal sinuses are clear. Trace effusion is noted within the dependent portion of the left mastoid air cells. The orbits are unremarkable. MRA brain: *Right carotid system: There is complete occlusion of the right ICA upto the cavernous segment on postcontrast imaging of MRA neck. There is decreased opacification of the right cavernous segment ICA terminus,right M1 segment could be secondary to slow flow, on the noncontrast [id number] imaging. However there is opacification of these segments including cavernous ICA terminus and M1 segments on postcontrastimaging. *Left carotid system: Patent ICA. No focal stenosis. Patent SHEA and MCA. Normal anterior communicating artery. Slightly larger caliber left ICA. *Posterior circulation: Patent vertebral arteries and basilar artery without stenosis. 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 There is no aneurysm. MRA neck: Artifact slightly limits the evaluation at the origin of great vessels. *Aortic arch: Minimal irregularities along the aortic arch be secondaryto atherosclerosis.. Three-vessel configuration of the branch vesselorigin. *Redemonstrated occlusion of the internal carotid artery with reconstitution from cavernous segment. *Left carotid system: Patent. Mild irregularity at the carotid bulb and origin of left ICA without significant stenosis could be secondary to atherosclerosis.. Left ICA has slightly larger caliber. *Right vertebral artery: Patent. No stenosis. *Left vertebral artery: Patent. No stenosis. IMPRESSION: 1.Areas of the evolving infarction with cortical laminar necrosis also noted in right frontal lobe. Areas of restricted diffusion noted in the right frontal lobe including the right precentral gyrus/and paracentral lobule suggesting superimposed acute infarction. 2.Evolving chronic to subacute infarcts noted in the right parietal, temporo-occipital regions with tiny foci of associated susceptibility. These could be secondary to chronic hemosiderin staining versuspetechial hemorrhages. 3.Occlusion of the right internal carotid artery from its origin with reconstitution from the cavernous segment. Slow flow is noted in theright distal cavernous, ICA terminus, proximal right MCA upto the bifurcationon [id number] imaging with the opacification on postcontrast imaging. The report was drafted by Maryana Sanderson MD (Molded Goods Inspector Trimmer). Critical results discussed with Dr. Becker by Dr. Sanderson on 12/12/2021 at 8:41 AM. I, Re Sage Dr have personally reviewed and interpreted this examination/study. > Interpreting Provider: Re Sage Dr on 12/12/2021 10:13 AM Bravo Woodson HARVEST MANAGER-SENIOR STATISTICAL PROGRAMMER MR ORDERABLES * MRI ANGIO NECK W CONTRAST (12/11/2021 8:30 PM CDT) Anatomical Region Laterality Modality Head Magnetic Resonan ce 12/12/2021 8:10 AM CDT Addenda Addendum by Re Sage MD on 12/12/2021 3:45 PM CDT There is T2 hyperintensity along the posterior aspect of the sphenoid sinus surrounding the slightly enlarged left ICA (image 8 series 10,), nonspecific evaluation with contrast is recommended for further evaluation, partially empty sella with flattening ??of the pituitary gland. > Interpreting Provider: Re Sage Dr on 12/12/2021 3:43 PM Impressions 12/12/2021 10:13 AM CDT IMPRESSION: 1.Areas of the evolving infarction with cortical laminar necrosis also noted in right frontal lobe. Areas of restricted diffusion noted in the right frontal lobe including the right precentral gyrus/and paracentral lobule suggesting superimposed acute infarction. 2.Evolving chronic to subacute infarcts noted in the right parietal, temporo-occipital regions with tiny foci of associated susceptibility. These could be secondary to chronic hemosiderin staining versus petechial hemorrhages. 3.Occlusion of the right internal carotid artery from its origin with reconstitution from the cavernous segment. Slow flow is noted in the right distal cavernous, ICA terminus, proximal right MCA upto the bifurcation on [id number] imaging with the opacification on postcontrast imaging. The report was drafted by Maryana Sanderson MD (Molded Goods Inspector Trimmer). Critical results discussed with Dr. Becker by Dr. Sanderson on 12/12/2021 at 8:41 AM. I, Re Sage Dr have personally reviewed and interpreted this examination/study. > Interpreting Provider: Re Sage Dr on 12/12/2021 10:13 AM Narrative 12/12/2021 10:13 AM CDT PROCEDURE: ??MRI ANGIO BRAIN ARTERIAL WO CONT, MRI BRAIN WO CONTRAST, MRI ANGIO NECK W CONTRAST, DATE/TIME OF EXAM: ??12/11/2021 8:31 PM, LOCATION ??[facility] INDICATION: Left leg weakness ADDITIONAL CLINICAL INFORMATION: Ordering Provider Reason For Exam: ??left leg weakness; hx of old strokes (accession [id number]). COMPARISON: CT brain dated 12/11/2021 at 12:10 PM. MRI Brain: Restricted diffusion foci noted in the right frontal lobe and in the right paracentral lobule medially, right precentral gyrus consistent with acute infarction. Adjacent areas of laminar necrosis also noted along the right frontal lobe suggesting evolving infarction. Evolving subacute to chronic infarcts also noted involving the right parietal lobe and right temporo-occipital region with regions of minimally restricted diffusion/T2 shine through. Punctate focus of superimposed restricted diffusion noted in the right temporal lobe (image 12, series 4). Associated punctate foci of susceptibility noted in this region. Small chronic infarct also noted in the left cerebellar hemisphere, left frontal lobe. Foci of susceptibility also noted in the right parietal region at the site of evolving infarction. Foci of susceptibility in the left frontal lobe close to the vertex (image 58, series 7) could be secondary to chronic microhemorrhages. Mild chronic microvascular ischemic changes are seen in the supratentorial white matter. There is no intracranial mass or mass effect. There is no hydrocephalus or extra-axial fluid collection. The sella is within normal limits. The paranasal sinuses are clear. Trace effusion is noted within the dependent portion of the left mastoid air cells. The orbits are unremarkable. MRA brain: *Right carotid system: There is complete occlusion of the right ICA up to the cavernous segment on postcontrast imaging of MRA neck. There is decreased opacification of the right cavernous segment ICA terminus, right M1 segment could be secondary to slow flow, on the noncontrast [id number] imaging. However there is opacification of these segments including cavernous ICA terminus and M1 segments on postcontrast imaging. *Left carotid system: Patent ICA. No focal stenosis. Patent SHEA and MCA. Normal anterior communicating artery. Slightly larger caliber left ICA. *Posterior circulation: Patent vertebral arteries and basilar artery without stenosis. 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 There is no aneurysm. ?? MRA neck: Artifact slightly limits the evaluation at the origin of great vessels. *Aortic arch: Minimal irregularities along the aortic arch be secondary to atherosclerosis.. Three-vessel configuration of the branch vessel origin. *Redemonstrated occlusion of the internal carotid artery with reconstitution from cavernous segment. *Left carotid system: Patent. Mild irregularity at the carotid bulb and origin of left ICA without significant stenosis could be secondary to atherosclerosis.. Left ICA has slightly larger caliber. *Right vertebral artery: Patent. No stenosis. *Left vertebral artery: Patent. No stenosis. Procedure Note Re Sage MD - 12/12/2021 PROCEDURE: MRI ANGIO BRAIN ARTERIAL WO CONT, MRI BRAIN WO CONTRAST, MRI ANGIO NECK W CONTRAST, DATE/TIME OF EXAM: 12/11/2021 8:31 PM, [facility] INDICATION: Left leg weakness ADDITIONAL CLINICAL INFORMATION: Ordering Provider Reason For Exam: left leg weakness; hx of old strokes (accession [id number]). COMPARISON: CT brain dated 12/11/2021 at 12:10 PM. MRI Brain: Restricted diffusion foci noted in the right frontal lobe and in theright paracentral lobule medially, right precentral gyrus consistent withacute infarction. Adjacent areas of laminar necrosis also noted along theright frontal lobe suggesting evolving infarction. Evolving subacute to chronic infarcts also noted involving the right parietal lobe and right temporo-occipital region with regions ofminimally restricted diffusion/T2 shine through. Punctate focus of superimposed restricted diffusion noted in the right temporal lobe (image 12, series4). Associated punctate foci of susceptibility noted in this region. Small chronic infarct also noted in the left cerebellar hemisphere, leftfrontal lobe. Foci of susceptibility also noted in the right parietal region atthe site of evolving infarction. Foci of susceptibility in the left frontal lobe close to the vertex (image 58, series 7) could be secondary tochronic microhemorrhages. Mild chronic microvascular ischemic changes are seen in thesupratentorial white matter. There is no intracranial mass or mass effect. There is no hydrocephalusor extra-axial fluid collection. The sella is within normal limits. The paranasal sinuses are clear. Trace effusion is noted within the dependent portion of the left mastoid air cells. The orbits are unremarkable. MRA brain: *Right carotid system: There is complete occlusion of the right ICA upto the cavernous segment on postcontrast imaging of MRA neck. There is decreased opacification of the right cavernous segment ICA terminus,right M1 segment could be secondary to slow flow, on the noncontrast [id number] imaging. However there is opacification of these segments including cavernous ICA terminus and M1 segments on postcontrastimaging. *Left carotid system: Patent ICA. No focal stenosis. Patent SHEA and MCA. Normal anterior communicating artery. Slightly larger caliber left ICA. *Posterior circulation: Patent vertebral arteries and basilar artery without stenosis. 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 There is no aneurysm. MRA neck: Artifact slightly limits the evaluation at the origin of great vessels. *Aortic arch: Minimal irregularities along the aortic arch be secondaryto atherosclerosis.. Three-vessel configuration of the branch vesselorigin. *Redemonstrated occlusion of the internal carotid artery with reconstitution from cavernous segment. *Left carotid system: Patent. Mild irregularity at the carotid bulb and origin of left ICA without significant stenosis could be secondary to atherosclerosis.. Left ICA has slightly larger caliber. *Right vertebral artery: Patent. No stenosis. *Left vertebral artery: Patent. No stenosis. IMPRESSION: 1.Areas of the evolving infarction with cortical laminar necrosis also noted in right frontal lobe. Areas of restricted diffusion noted in the right frontal lobe including the right precentral gyrus/and paracentral lobule suggesting superimposed acute infarction. 2.Evolving chronic to subacute infarcts noted in the right parietal, temporo-occipital regions with tiny foci of associated susceptibility. These could be secondary to chronic hemosiderin staining versuspetechial hemorrhages. 3.Occlusion of the right internal carotid artery from its origin with reconstitution from the cavernous segment. Slow flow is noted in theright distal cavernous, ICA terminus, proximal right MCA upto the bifurcationon [id number] imaging with the opacification on postcontrast imaging. The report was drafted by Maryana Sanderson MD (Molded Goods Inspector Trimmer). Critical results discussed with Dr. Becker by Dr. Sanderson on 12/12/2021 at 8:41 AM. I, Re Sage Dr have personally reviewed and interpreted this examination/study. > Interpreting Provider: Re Sage Dr on 12/12/2021 10:13 AM Bravo Woodson APRN-SENIOR STATISTICAL PROGRAMMER MR ORDERABLES * BLOOD TYPE VERIFICATION (12/11/2021 3:21 PM CDT) ABO Rh A POS 12/11/2021 4:0 2 PM CDT [facility] Blood Bank BLOOD SPECIMEN / Unknown Venipuncture / Unknown 12/11/2021 3:21 PM CDT 12/11/2021 3:36 PM CDT Tere Dodd MD LAB - BLOOD BANK ORD ERABLES [facility] [address] [place] [address], [facility] [phone] * ECHO COMPLETE W BUBBLE STUDY (12/11/2021 2:36 PM CDT) Anatomical Region Laterality Modality Chest Echo 12/11/2021 1:50 PM CDT Narrative Procedure Note Aliya Lombardi MD - 12/11/2021 Bravo Woodson APRN-SENIOR STATISTICAL PROGRAMMER ECHOCARDIOGRAPHY R ADIANT * PTT [facility] (12/11/2021 12:27 PM CDT) APTT 35.2 23.0 - 38.4 Seconds 12/11/2021 1:13 PM CDT [facility] Comment:Suggested therapeuti c range for full dose I.V. unfractionated heparin therapy for venous thromboembolism is 71 to 109 seconds. Blood BLOOD SPECIMEN / Unknown Venipuncture / Unknown 12/11/2021 12:27 PM CDT 12/11/2021 12:33 PM CDT Ricardo Andino PA-C LAB - COAG ULATION ORDERABLES [address] [address], [place] [phone] * TYPE + SCREEN PANEL (12/11/2021 12:27 PM CDT) Antibody Screen NEG 1:21 PM CDT [facility] ABO Rh A POS 12/11/2021 1:21 PM CDT [facility] Blood Bank BLOOD SPECIMEN / Unknown Venipuncture / Unknown 12/11/2021 12:27 PM CDT 12/11/2021 12:37 PM CDT Ketan Snowden MD LAB - BLOOD BANK ORD ERABLES Performing Organization Address City/[facility]/ZIP Co de Phone Number [facility] [address] [place] [address], [place] [phone] * INR WHOLE BLOOD - POINT OF CARE (IP) STROKE (12/11/2021 12:14 PM CDT) INR 1.0 0.9 - 1.2 12/11/2021 2:30 PM CDT [facility] Device [id number] 12/11/2021 2:30 PM CDT [facility] Clinical Data Abstractor ID [id number] 12/11/2021 2:30 PM CDT [facility] Blood BLOOD SPECIMEN / Unknown 12/11/2021 12:14 PM CDT 12/11/2021 2:30 PM CDT Ketan Snowden MD LAB - POINT OF CARE ORDERABLES [address] [place] [address], [facility] [phone] * (ABNORMAL) CREATININE - POCT INTERFACED (12/11/2021 12:14 PM CDT) Creatinine POCT 1.25 0.30 - 1.30 mg/dL 12/11/2021 2:40 PM CDT [facility] eGFR 64(L) >90 mL/min/1.7 3 m2 12/11/2021 2:40 PM CDT [facility] Blood BLOOD SPECIMEN / Unknown 12/11/2021 12:14 PM CDT 12/11/2021 2:40 PM CDT Ketan Snowden MD LAB - POINT OF CARE ORDERABLES [address] [address], [facility] [phone] Care Teams Multimedia Designer Relationship Specialty Start Date End Date Ly Valenzuela MD [address] [place] [address] PCP - General 03/06/22
--- OUTSIDE RECORDS SUMMARY | 2024-05-22 00:01 | XMS_ITS | Clinical Summary ---
Author Organization [facility] [employer] Address [address] [place] [address] Care Team Providers Care Senior Data Warehouse Developer Name Role Phone Ly Valenzuela MD Primary Care Provider [phone] Source Comments [facility] [employer],non-owned Affiliates and Associated Physician Practices is amultiple site organization consisting of ambulatory clinics and hospital sitesin [place], [place], [place] and [place]. This disclosure is being madepursuant to the Care Everywhere program and may not contain all information available regarding this patient. Last updated 18.[facility] [employer] Allergies Active Allergy Reactions Criticality Noted Date Comments Hydralazine Nausea and/or Vomiting 02/11/2018 Lisinopril Other 08/27/2020 Metformin Diarrhea 09/02/2006 Pioglitazone Nausea and/or Vomiting Medium 01/27/2012 Simvastatin Other 01/19/2022 Pt reports hot flashes Medications * Be aware that medications may not be up to date on this document. Alwaysverify current medications with the patient. Medication Sig Dispensed Refills Start Date End Date Status aspirin EC (Ecotrin) 81 MG tablet Take 1 (one) tablet by mouth once daily Active brinzolamide-brimon idine (Simbrinza) 1-0.2 % ophthalmic suspension Instill 1 (one) drop into both eyes 3 times daily Active cabergoline (Dostinex) 0.5 MG tablet Take 1 (one) tablet by mouth Two times a week Active carboxymethylcellul ose 1 % ophthalmic gel Instill into both eyes 4 times daily as needed (Dry eyes) Active vitamin D, ergocalciferol, (Drisdol) 1.25 MG (53796 UT) capsule Take 1 (one) capsule by mouth every 7 days Active empagliflozin (Jardiance) 25 MG tablet Take 1 (one) tablet by mouth once daily Active rosuvastatin (Crestor) 40 MG tablet Take 1 (one) tablet by mouth once daily Active tiotropium (Spiriva Respimat) 2.5 MCG/ACT inhaler Inhale 2 (two) puffs by mouth once daily Active acetaminophen (Tylenol) 325 MG tablet Take 2 (two) tablets by mouth every 8 hours Maximum allowable Acetaminophen amount = 4 Grams (4000 mg) / 24 hours. 10/28/2022 Active albuterol-ipratropi um (Duo-Neb) 0.5-2.5 (3) MG/3ML nebulizer solution Inhale 3 mL by mouth every 4 hours as needed for Shortness of Breath or Wheezing 10/28/2022 Active budesonide-formoter ol (Symbicort) 160-4.5 MCG/ACT inhaler Inhale 2 (two) puffs by mouth 2 times daily 10/28/2022 Active calcium carbonate (Tums) 500 MG chew tablet Take 2 (two) tablets by mouth every 2 hours as needed for Heartburn 10/28/2022 Active heparin 5000 UNIT/ML injection Inject 1 mL subcutaneously every 8 hours 10/28/2022 Active gabapentin (Neurontin) 100 MG capsule Take 2 (two) capsules by mouth 3 times daily 10/28/2022 Active insulin glargine (Lantus/Semglee) 100 units/mL pen Inject 10 (ten) Units subcutaneously every 24 hours 10/29/2022 Active insulin lispro (HumaLOG;ADMelog) 100 UNIT/ML pen Inject 0 (zero) Units to 12 (twelve) Units subcutaneously 3 times daily with meals 10/28/2022 Active bismuth subsalicylate (Pepto-Bismol) 262 MG chew tablet Take 2 (two) tablets by mouth as needed 10/28/2022 Active losartan (Cozaar) 50 MG tablet Take 1 (one) tablet by mouth once daily 10/29/2022 Active amLODIPine (Norvasc) 10 MG tablet Take 1 (one) tablet by mouth once daily 10/29/2022 Active melatonin 1 MG tablet Take 8 (eight) tablets by mouth once daily 10/28/2022 Active tamsulosin (Flomax) 0.4 MG capsule Take 1 (one) capsule by mouth once daily At the same time every day after a meal. 10/29/2022 Active simethicone (Mylicon) 80 MG chew tablet Take 1 (one) tablet by mouth 4 times daily as needed for Gas Pain 10/28/2022 Active clopidogrel (plaVIX) 75 MG tablet Take 1 (one) tablet by mouth once daily for 81 days 81 tablet 10/29/2022 Active nicotine (Nicoderm CQ) 21 MG/24HR patchIndications:Le ft-sided weakness,Ischemic stroke (HCC),Dysphagia, unspecified type,Bradycardia,Ca rotid occlusion, right,Coronary artery disease involving yocha dehe coronary artery of yocha dehe heart without angina pectoris,JAMES (obstructive sleep apnea),Chronic obstructive pulmonary disease, unspecified COPD type ([facility]),Type 2 diabetes mellitus with stage 2 chronic kidney disease, with long-term current use of insulin ([facility]),Smoker,Caroti d stenosis, left Apply 1 (one) patch to skin once daily 10/29/2022 Active lidocaine (Lidoderm) 5 % patch Apply 1 (one) patch to skin every 24 hours Apply patch to most painful area and remove after 12 hours. May reapply a new patch 12 hours later. 10/28/2022 Active glucose, Diabetic Use, (Dex4 Glucose) oral liquid Take by mouth as needed for Other (Bedside Glucose less than 70 mg/dL -If able to eat and does not have swallowing difficulties) 10/28/2022 Active glucose, Diabetic Use, 15 GM/32ML oral gel Take by mouth as needed for Other (Bedside Glucose less than 70 mg/dL -If able to eat and does not have swallowing difficulties) 10/28/2022 Active Dextrose, Diabetic Use, (glucose) 4 G chew tablet Take 4 (four) tablets by mouth as needed 10/28/2022 Active carvedilol (Coreg) 6.25 MG tablet Take 1 (one) tablet by mouth 2 times daily with morning and evening meal Hold for Heart rate < 60/min 10/28/2022 Active Active Problems Problem Noted Date Diagnosed Date [...] 10/13/2022 10/28/2022 Respiratory acidosis 10/13/2022 023 Immunizations Name Administration Dates Next Due INFLUENZA VACCINE 05/10/2006 PNEUMOCOCCAL PPV VACCINE 08/17/2003 TD, HISTORIC VACCINE 12/09/2003 TDAP (7yrs+) 07/23/2014 Social History Tobacco Use Types Packs/Day Years [...] Date Recorded PHQ2 TOTAL SCORE 0 12/13/2021 [facility] [place] [facility] Occupat ional Health - Occupational Stress [...] place to sleep or slept in a [place] (including now)? No 10/16/2022 Sex and Gender [...] Mass Index 31.84 10/20/2022 7:14 PM CDT Plan of Treatment Health Maintenance Due Date Last Done Comments COLOGUARD (AGES 45-75) - COLON CA SCREENING 1956 COLON MONITORING 1956 COLONOSCOPY - COLON CA SCREENING 1956 CT COLONOGRAPHY - COLON CA SCREENING 1956 Colorectal Cancer Screening 1956 FIT - COLON CA SCREENING 1956 FLEX SIG - COLON CA SCREENING 1956 HEPATITIS C SCREENING 07/09/1974 PNEUMOCOCCAL VACCINE 50+ (2 of 2 - PCV) 08/16/2004 08/17/2003 LUNG CANCER SCREENING 2006 ZOSTER VACCINE (1 of 2) 2006 Respiratory Syncytial Virus (RSV) Vaccine Pt: or over 60 yrs (1 - Risk 60-74 years 1-dose series) 2016 AAA SCREENING 2021 DIABETES-FOOT EXAM WITH MONOFILAMENT 12/11/2021 DIABETES-HGB A1C 04/13/2023 10/12/2022, 12/11/2021 DIABETES-SERUM CREATININE 11/20/20232022, 11/18/2022, 11/18/2022, Additional history exists COVID-19 VACCINE ( - season) 2024 INFLUENZA VACCINE (#1) 2024 05/10/2006 DEPRESSION SCREENING 05/10/2024 12/11/2021 DIABETES - URINE PROTEIN SCREENING 05/10/2024 11/18/2022 MEDICARE AWV ? CALENDAR YEAR 2024 DTAP/TDAP/TD VACCINES (3 - Td or Tdap) 07/23/2024 07/23/2014, 12/09/2003 DIABETES RETINOPATHY SCREENING 08/12/2024 08/12/2022, 05/13/2022, 01/14/2022 HEPATITIS B VACCINE Aged Out No longe r eligible based on patient's age to complete this topic HIB VACCINE Aged Out No longer eligi ble based on patient's age to complete this topic HPV VACCINE Aged Out No longer eligi ble based on patient's age to complete this topic MENINGOCOCCAL (Group B) VACCINE Aged Out No longer eligible based on patient's age to complete this topic MENINGOCOCCAL VACCINE Aged Out No idaina claudy eligible based on patient's age to complete this topic Medical Devices Implanted Type Area Door Paneler Device Identifier Shelf Expiration Date Model / Serial / Lot Loop Recorder Loop Recorder [employer] [id number] / [id number] / Procedures Procedure Name Priority Date/Time Associated Diagnosis Comments BASIC METABOLIC PANEL (CALCIUM TOTAL) Routine 11/19/2022 12:08 AM CDT MICROALB/CREAT RATIO URINE RANDOM PANEL Routine 11/18/2022 2:14 PM CDT HEMOGLOBIN A1C Add on 10/12/2022 10:31 PM CDT from Last 3 Months or Most Recently Relevant to Health Maintenance Results * (ABNORMAL) BASIC METABOLIC PANEL (CALCIUM TOTAL) (11/19/2022 12:08 AM CDT) Glucose 114(H) 70 - 105 mg/dL 11/19/2022 4:32 AM CDT [facility] Sodium 140 136 - 145 mmol/L 11/19/2022 4:32 AM CDT [facility] Potassium 4.8 3.5 - 5.1 mmol/L 11/19/2022 4:32 AM CDT [facility] Chloride 105 98 - 107 mmol/L 11/19/2022 4:32 AM CDT [facility] CO2 26 22 - 29 mmol/L 11/19/2022 4:32 AM CDT [facility] Calcium 9.9 8.4 - 10.4 mg/dL 11/19/2022 4:32 AM CDT [facility] Anion Gap 9 6 - 16 mmol/L 11/19/2022 4:32 AM CDT [facility] BUN 56(H) 7 - 26 mg/dL 11/19/2022 4:32 AM CDT [facility] Creatinine 1.40(H) 0.72 - 1.25 mg/dL 11/19/2022 4:32 AM CDT [facility] eGFR by CKD-EPI 55(L) >=90 mL/min/1.7 3 m2 11/19/2022 4:32 AM CDT [facility] Blood BLOOD SPECIMEN / Unknown Lab Venipuncture / Unknown 11/19/2022 12:08 AM CDT 11/19/2022 3:50 AM CDT Zay Perry MD LAB - CHEMISTRY ORD ERABLES [facility] [address] [place] [address] * (ABNORMAL) MICROALB/CREAT RATIO URINE RANDOM PANEL (11/18/2022 2:14 PM CDT) Creatinine Urine 35.49 mg/dL 11/19/19 4:29 PM CDT [facility] Microalbumin Urine 1.9 mg/dL 11/18/2022 4:29 PM CDT [facility] Microalbumin/Crea tinine Ratio 53(H) <30 mg/g 11/18/2022 4:29 PM CDT [facility] Urine URINE SPECIMEN OBTAINED BY CLEAN CATCH PROCEDURE / Unknown Collection / Unknown 11/18/2022 2:14 PM CDT 11/18/2022 3:45 PM CDT Sacha Ruby DO LAB - URINE CHEMIS TRY ORDERABLES Performing Organization Address [facility]/ZIP Co de Phone Number [facility] [address] [place] [address] * (ABNORMAL) HEMOGLOBIN A1C (10/12/2022 10:31 PM CDT) Hemoglobin A1c 7.7(H) <=5.6 % 10/13/2022 8:30 AM CDT [facility] Estimated Average Glucose 174 mg/dL 10/13/2022 8:30 AM T [facility] Comment: HbA1c Interpretation: Normal : < 5.7% Pre-diabetes: 5.7-6.4% Diabetes: Equal to or greater than 6.5% Test results diagnostic of diabetes should be repeated for confirmation. Treatment target values recommended by ADA and other clinical organizations should be used to evaluate metabolic control in patients. Reference: [place] [employer], Standards of Care in Diabetes [...] Randolph MD LAB - CHEMISTRY [facility] [address] [place] [address], [facility] [phone] from Last 3 Months or Most Recently Relevant to Health Maintenance Advance Directives * Full Code (Latest Code Status on File) Date Activated Date Inactivated Comments 10/28/2022 10:18 PM 11/20/2022 8:18 PM * Full Code Date Activated Date Inactivated Comments 10/12/2022 7:38 PM 10/28/2022 9:39 PM * Full Code Date Activated Date Inactivated Comments 12/11/2021 12:36 PM 12/14/2021 5:07 PM Care Teams Senior Data Warehouse Developer Relationship Specialty Start Date End Date Ly Valenzuela MD [address] [place] [address] PCP - General 03/06/22
--- OUTSIDE RECORDS SUMMARY | 2024-05-22 00:01 | XMS_ITS | Encounter Summary ---
Author Organization [facility] Address [address] [place] [address] Care Team Providers Care Liquor Commissioner Name Role Phone Ly Valenzuela MD Primary Care Provider [phone] Encounter Details Date Type Department Care Team (Latest Contact Info) Description 10/28/2022 9:05 PM CDT - 11/20/2022 7:12 PM CDT Hospital Encounter [address] [address] Carolina Garibay MD [address] [place] [address] [address] [place] [id number] [facility] Direct Discharge Disposition: Senior Care Facility Social History Tobacco Use Types Packs/Day Years Used Date Smoking Tobacco: Former Cigarettes 1 43.4 1 980 - 10/12/2022 Passive Smoke Exposure: Past Smokeless Tobacco: Never Alcohol Use Standard Drinks/Week Comments Not Currently [...] Date Recorded PHQ2 TOTAL SCORE 0 12/13/2021 [facility] - Occupational Stress Questionnaire Answer Date Recorded [...] place to sleep or slept in a alf (including now)? No 10/16/2022 Sex and Gender Information Value Date Recorded Sex Assigned at Not on file Gender Identity Not on file Sexual Orientation Not on file documented as of this encounter Functional Status Functional Status Response Date of Assess ment Is person deaf or have serious hearing difficult y? No 10/16/2022 Is person blind or have serious difficulty seein g? No 10/16/2022 Does person have serious dif ficulty walking/climbing stairs? No 10/16/2022 Does person have difficulty dressing/bathing? No 10/16/2022 Does person have difficulty doing errands alone? No 10/16/2022 Cognitive Status Response Date of Assessm ent Does person have difficulty concentrating/remembering/making decisions? No 10/16/2022 documented as of this encounter Medications at Time of Discharge Medication Sig Dispensed Refills Start Date End Date acetaminophen (Tylenol) 325 MG tablet Take 2 (two) tablets by mouth every 8 hours Maximum allowable Acetaminophen amount = 4 Grams (4000 mg) / 24 hours. 10/28/2022 albuterol-ipratropium (Duo-Neb) 0.5-2.5 (3) MG/3ML nebulizer solution Inhale 3 mL by mouth every 4 hours as needed for Shortness of Breath or Wheezing 10/28/2022 amLODIPine (Norvasc) 10 MG tablet Take 1 (one) tablet by mouth once daily 10/29/2022 aspirin EC (Ecotrin) 81 MG tablet Take 1 (one) tablet by mouth once daily bismuth subsalicylate (Pepto-Bismol) 262 MG chew tablet Take 2 (two) tablets by mouth as needed 10/28/2022 brinzolamide-brimonidi ne (Simbrinza) 1-0.2 % ophthalmic suspension Instill 1 (one) drop into both eyes 3 times daily budesonide-formoterol (Symbicort) 160-4.5 MCG/ACT inhaler Inhale 2 (two) puffs by mouth 2 times daily 10/28/2022 cabergoline (Dostinex) 0.5 MG tablet Take 1 (one) tablet by mouth Two times a week calcium carbonate (Tums) 500 MG chew tablet Take 2 (two) tablets by mouth every 2 hours as needed for Heartburn 10/28/2022 carboxymethylcellulose 1 % ophthalmic gel Instill into both eyes 4 times daily as needed (Dry eyes) carvedilol (Coreg) 6.25 MG tablet Take 1 (one) tablet by mouth 2 times daily with morning and evening meal Hold for Heart rate < 60/min 10/28/2022 clopidogrel (plaVIX) 75 MG tablet Take 1 (one) tablet by mouth once daily for 81 days 81 tablet 10/29/2022 Dextrose, Diabetic Use, (glucose) 4 G chew tablet Take 4 (four) tablets by mouth as needed 10/28/2022 empagliflozin (Jardiance) 25 MG tablet Take 1 (one) tablet by mouth once daily gabapentin (Neurontin) 100 MG capsule Take 2 (two) capsules by mouth 3 times daily 10/28/2022 glucose, Diabetic Use, (Dex4 Glucose) oral liquid Take by mouth as needed for Other (Bedside Glucose less than 70 mg/dL -If able to eat and does not have swallowing difficulties) 10/28/2022 glucose, Diabetic Use, 15 GM/32ML oral gel Take by mouth as needed for Other (Bedside Glucose less than 70 mg/dL -If able to eat and does not have swallowing difficulties) 10/28/2022 heparin 5000 UNIT/ML injection Inject 1 mL subcutaneously every 8 hours 10/28/2022 insulin glargine (Lantus/Semglee) 100 units/mL pen Inject 10 (ten) Units subcutaneously every 24 hours 10/29/2022 insulin lispro (HumaLOG;ADMelog) 100 UNIT/ML pen Inject 0 (zero) Units to 12 (twelve) Units subcutaneously 3 times daily with meals 10/28/2022 lidocaine (Lidoderm) 5 % patch Apply 1 (one) patch to skin every 24 hours Apply patch to most painful area and remove after 12 hours. May reapply a new patch 12 hours later. 10/28/2022 losartan (Cozaar) 50 MG tablet Take 1 (one) tablet by mouth once daily 10/29/2022 melatonin 1 MG tablet Take 8 (eight) tablets by mouth once daily 10/28/2022 nicotine (Nicoderm CQ) 21 MG/24HR patchIndications:Left- sided weakness,Ischemic stroke ([facility]),Dysphagia, unspecified type,Bradycardia,Carot id occlusion, right,Coronary artery disease involving [place] coronary artery of [place] heart without angina pectoris,JAMES (obstructive sleep apnea),Chronic obstructive pulmonary disease, unspecified COPD type ([facility]),Type 2 diabetes mellitus with stage 2 chronic kidney disease, with long-term current use of insulin ([facility]),Smoker,Carotid stenosis, left Apply 1 (one) patch to skin once daily 10/29/2022 rosuvastatin (Crestor) 40 MG tablet Take 1 (one) tablet by mouth once daily simethicone (Mylicon) 80 MG chew tablet Take 1 (one) tablet by mouth 4 times daily as needed for Gas Pain 10/28/2022 tamsulosin (Flomax) 0.4 MG capsule Take 1 (one) capsule by mouth once daily At the same time every day after a meal. 10/29/2022 tiotropium (Spiriva Respimat) 2.5 MCG/ACT inhaler Inhale 2 (two) puffs by mouth once daily vitamin D, ergocalciferol, (Drisdol) 1.25 MG (80240 UT) capsule Take 1 (one) capsule by mouth every 7 days documented as of this encounter Plan of Treatment Not on file documented as of this encounter Procedures Procedure Name Priority Date/Time Associated Diagnosis Comments ALDOSTERONE BLOOD Routine 11/19/2022 2:3 7 AM CDT RENIN ACTIVITY Routine 11/19/2022 12:08 AM CDT CBC W/O DIFFERENTIAL Routine 11/19/2022 12:08 AM CDT BASIC METABOLIC PANEL (CALCIUM TOTAL) Routine 11/19/2022 12:08 AM CDT LDH BLOOD Add on 11/19/2022 12:08 AM CDT CORTISOL BLOOD AM Routine 11/19/2022 12: 08 AM CDT US RETROPERITONEAL COMPLETE Routine 11/18/2022 4:38 PM CDT Acute kidney injury (HCC) BASIC METABOLIC PANEL (CALCIUM TOTAL) STAT 11/18/2022 2:29 PM CDT MICROALB/CREAT RATIO URINE RANDOM PANEL Routine 11/18/2022 2:14 PM CDT URINALYSIS REFLEX TO MICROSCOPIC NO CULTURE Routine 11/18/2022 2:14 PM CDT URINE MICROSCOPIC ONLY Routine 3 2:14 PM CDT PROTEIN URINE RANDOM QUANTITATIVE Routine 11/18/2022 2:14 PM CDT SODIUM URINE RANDOM Routine 11/18/2022 2 :14 PM CDT UREA NITROGEN URINE RANDOM Routine 11/18/2022 2:14 PM CDT POTASSIUM URINE RANDOM Routine 3 2:14 PM CDT BASIC METABOLIC PANEL (CALCIUM TOTAL) Routine 11/18/2022 3:14 AM CDT POTASSIUM BLOOD Routine 11/17/2022 12:46 PM CDT CBC W/O DIFFERENTIAL Routine 11/16/2022 12:27 PM CDT BASIC METABOLIC PANEL (CALCIUM TOTAL) Routine 11/16/2022 12:04 AM CDT BASIC METABOLIC PANEL (CALCIUM TOTAL) Routine 11/12/2022 12:10 AM CDT CBC W/O DIFFERENTIAL Routine 11/09/2022 4:16 AM CDT BASIC METABOLIC PANEL (CALCIUM TOTAL) Routine 11/09/2022 4:16 AM CDT XR PELVIS W LEFT HIP 2VW Routine 11/06/2022 5:20 PM CDT BASIC METABOLIC PANEL (CALCIUM TOTAL) Routine 11/05/2022 2:49 AM CDT CBC W/O DIFFERENTIAL Routine 11/05/2022 2:20 AM CDT CBC W/O DIFFERENTIAL Routine 11/02/2022 12:22 AM CDT BASIC METABOLIC PANEL (CALCIUM TOTAL) Routine 11/02/2022 12:22 AM CDT BASIC METABOLIC PANEL (CALCIUM TOTAL) Routine 10/31/2022 6:28 AM CDT VITAMIN D 25-HYDROXY Routine 10/30/2022 2:05 AM CDT VITAMIN B12 Routine 10/30/2022 2:05 AM CDT BASIC METABOLIC PANEL (CALCIUM TOTAL) Routine 10/29/2022 5:32 AM CDT CBC W/O DIFFERENTIAL Routine 10/29/2022 5:31 AM CDT documented in this encounter Results * ALDOSTERONE BLOOD (11/19/2022 2:37 AM CDT) Pathologist [facility] Aldosterone 2.2 0.0 - 30.0 ng/dL 11/23/2022 2:09 PM CDT [facility] ([facility]) Blood BLOOD SPECIMEN / Unknown Lab Venipuncture / Unknown 11/19/2022 2:37 AM CDT 11/19/2022 3:50 AM CDT Narrative [facility] ([facility]) - 11/23/2022 2:09 PM CDT Test(s) [id number] was developed and its performance characteristics determined by [facility]. It has not been cleared or approved by the Food and Drug Administration. Performed at: ??01 - [address] ??[id number] Textile Supervisor: Eriberto Laboy MD, Phone: ??[phone] Sacha Ruby DO LAB - CHEMISTRY OR DERABLES [facility] ([facility]) [address] [place] [address] * LDH BLOOD (11/19/2022 12:08 AM CDT) [facility] LDH 166 125 - 220 U/L 11/19/2022 4:46 AM CDT [facility] Blood BLOOD SPECIMEN / Unknown Lab Venipuncture / Unknown 11/19/2022 12:08 AM CDT 11/19/2022 3:50 AM CDT Sacha Ruby DO LAB - CHEMISTRY OR DERABLES [facility] [address] [place] [address] * CORTISOL BLOOD AM (11/19/2022 12:08 AM CDT) [facility] Cortisol AM 5.0 4.3 - 22.4 ug/dL 11/19/2022 4:45 AM CDT [facility] Blood BLOOD SPECIMEN / Unknown Lab Venipuncture / Unknown 11/19/2022 12:08 AM CDT 11/19/2022 3:50 AM CDT Sacha Ruby DO LAB - CHEMISTRY OR DERABLES Performing Organization Address [facility] Co de Phone Number [facility] [address] [place] [phone] * RENIN ACTIVITY (11/19/2022 12:08 AM CDT) Renin 5.125 0.167 - 5.380 ng/mL/hr 11/27/2022 10:11 AM CDT [facility] ([facility]) Blood BLOOD SPECIMEN / Unknown Lab Venipuncture / Unknown 11/19/2022 12:08 AM CDT 11/19/2022 3:50 AM CDT Narrative [facility] ([facility]) - 11/27/2022 10:11 AM CDT Test(s) [id number] Activity, Plasma was developed and its performance characteristics determined by [facility]. It has not been cleared or approved by the Food and Drug Administration. Performed at: ??01 - [facility] ??[id number] Textile Supervisor: Eriberto Laboy MD, Phone: ??[phone] Sacha Ruby DO LAB - CHEMISTRY OR DERABLES Performing Organization Address City/[facility] Co de Phone Number [facility] ([facility]) [address] [place] [address] * (ABNORMAL) BASIC METABOLIC PANEL (CALCIUM TOTAL) (11/19/2022 12:08 AM CDT) Glucose 114(H) 70 - 105 mg/dL 11/19/2022 4:32 AM CDT [facility] Sodium 140 136 - 145 mmol/L 11/19/2022 4:32 AM CDT [facility] Potassium 4.8 3.5 - 5.1 mmol/L 11/19/2022 4:32 AM CDT [facility] Chloride 105 98 - 107 mmol/L 11/19/2022 4:32 AM CDT [facility] CO2 26 22 - 29 mmol/L 11/19/2022 4:32 AM CDT [facility] Calcium 9.9 8.4 - 10.4 mg/dL 11/19/2022 4:32 AM CDT [facility] Anion Gap 9 6 - 16 mmol/L 11/19/2022 4:32 AM CDT [facility] BUN 56(H) 7 - 26 mg/dL 11/19/2022 4:32 AM CDT [facility] Creatinine 1.40(H) 0.72 - 1.25 mg/dL 11/19/2022 4:32 AM CDT [facility] eGFR by CKD-EPI 55(L) >=90 mL/min/1.7 3 m2 11/19/2022 4:32 AM CDT [facility] Blood BLOOD SPECIMEN / Unknown Lab Venipuncture / Unknown 11/19/2022 12:08 AM CDT 11/19/2022 3:50 AM CDT Zay Perry MD LAB - CHEMISTRY ORD ERABLES [facility] [address] [place] [address] * (ABNORMAL) CBC W/O DIFFERENTIAL (11/19/2022 12:08 AM CDT) WBC 8.8 4.4 - 10.7 x10E9/L 11/19/2022 4:29 AM CDT [facility] RBC 3.40(L) 3.80 - 5.40 x10E12/L 11/19/2022 4:29 AM CDT [facility] Hemoglobin 10.3(L) 12.0 - 17.6 gm/dL 11/19/2022 4:29 AM CDT [facility] Hematocrit 32.0(L) 35.2 - 51.7 % 11/19/2022 4:29 AM CDT [facility] MCV 94.1 80.7 - 98.3 fl 11/19/2022 4:29 AM CDT [facility] MCH 30.3 26.7 - 34.0 pg 11/19/2022 4:29 AM CDT [facility] MCHC 32.2 30.8 - 35.9 gm/dL 11/19/2022 4:29 AM CDT [facility] Platelet Count 246 153 - 416 x10E9/L 11/19/2022 4:29 AM CDT [facility] RDW-CV 14.5 12.1 - 14.9 % 11/19/2022 4:29 AM CDT [facility] MPV 9.2(L) 9.4 - 12.9 fl 11/19/2022 4:29 AM CDT [facility] Blood BLOOD SPECIMEN / Unknown Lab Venipuncture / Unknown 11/19/2022 12:08 AM CDT 11/19/2022 3:50 AM CDT Zay Perry MD LAB - HEMATOLOGY OR DERABLES Performing Organization Address City/State/[facility] Co de Phone Number [facility] [address] [place], [place] [phone] * US RETROPERITONEAL COMPLETE (11/18/2022 4:38 PM [...] bladder with DICOM image capture performed by cardiovascular technologist. FINDINGS: The right kidney measures 10.6 [...] and bladder with DICOMimage capture performed by cardiovascular technologist. FINDINGS: The right kidney measures 10.6 [...] Keya Altman MD on 11/18/2022 5:07 PM [facility] Imtiaz Ruby DO ORDERABLES * (ABNORMAL) BASIC METABOLIC PANEL (CALCIUM TOTAL) (11/18/2022 2:29 PM CDT) Glucose 159(H) 70 - 105 mg/dL 11/18/2022 8:27 PM CDT [facility] Sodium 139 136 - 145 mmol/L 11/18/2022 8:27 PM CDT [facility] Potassium 5.3(H) 3.5 - 5.1 mmol/L 11/18/2022 8:27 PM CDT [facility] Chloride 104 98 - 107 mmol/L 11/18/2022 8:27 PM CDT [facility] CO2 19(L) 23 - 31 mmol/L 11/18/2022 8:27 PM CDT [facility] Calcium 11.6(H) 8.4 - 10.4 mg/dL 11/18/2022 8:27 PM CDT [facility] Anion Gap 16 8 - 18 mmol/L 11/18/2022 8:27 PM CDT [facility] BUN 59(H) 8.4 - 25.7 mg/dL 11/18/2022 8:27 PM CDT [facility] Creatinine 1.61(H) 0.72 - 1.25 mg/dL 11/18/2022 8:27 PM CDT [facility] eGFR by CKD-EPI 47(L) >=90 mL/min/1.7 3 m2 11/18/2022 8:27 PM CDT [facility] Blood BLOOD SPECIMEN / Unknown Venipuncture / Unknown 11/18/2022 2:29 PM CDT 11/18/2022 4:05 PM CDT Alta Harrison MD LAB - CHEMISTRY ORD ERABLES [facility] [address] [place] [address] * (ABNORMAL) URINE MICROSCOPIC ONLY (11/18/2022 2:14 PM CDT) RBC UA 11-20(A) 0 - 5 # /hpf 11/18/2022 4:01 PM CDT [facility] WBC Clumps UA Few(A) None Seen /HPF 11/18/2022 4:01 PM CDT [facility] WBC UA >100(A) 0 - 5 # /hpf 11/18/2022 4:01 PM CDT [facility] Bacteria UA Trace(A) None Seen 11/18/2022 4:01 PM CDT [facility] Squamous Epithelial Cells None Seen 0 - 5 /hpf 11/18/2022 4:01 PM CDT [facility] Urine URINE SPECIMEN OBTAINED BY CLEAN CATCH PROCEDURE / Unknown Collection / Unknown 11/18/2022 2:14 PM CDT 11/18/2022 3:45 PM CDT Narrative [facility] - 11/18/2022 4:01 PM CDT Sacha Imtiaz Ruby DO LAB - URINALYSIS O RDERABLES Performing Organization Address City/[facility]/ZIP Co de Phone Number [facility] [address] [place], [place] [phone] * (ABNORMAL) URINALYSIS REFLEX TO MICROSCOPIC NO CULTURE (11/18/2022 2:14 PM CDT) Color UA Yellow Straw, Yellow 11/18/2022 3:58 PM CDT [facility] Clarity UA Cloudy(A) Clear 11/18/2022 3:58 PM CDT [facility] Glucose UA Negative Negative 11/18/2022 3:58 PM CDT [facility] Bilirubin UA Negative Negative 11/18/2022 3:58 PM CDT [facility] Ketone UA Negative Negative 11/18/2022 3:58 PM CDT [facility] Specific [place] UA 1.010 1.005 - 1.030 11/18/2022 3:58 PM CDT [facility] Blood UA Negative Negative 11/18/2022 3:58 PM CDT [facility] pH UA 6.0 5.0 - 8.0 pH 11/18/2022 3:58 PM CDT [facility] Protein UA Negative Negative 11/18/2022 3:58 PM CDT [facility] Urobilinogen UA Negative Negative mg/dL 11/18/2022 3:58 PM CDT [facility] Nitrite UA Negative Negative 11/18/2022 3:58 PM CDT [facility] Leukocyte UA 3+(A) Negative 11/18/2022 3:58 PM CDT [facility] Urine Microscopy Urine microscopy to follow 11/18/2022 3:58 PM CDT [facility] Urine URINE SPECIMEN OBTAINED BY CLEAN CATCH PROCEDURE / Unknown Collection / Unknown 11/18/2022 2:14 PM CDT 11/18/2022 3:45 PM CDT Narrative [facility] - 11/18/2022 3:58 PM CDT Sacha Ruby DO LAB - URINALYSIS O RDERABLES [facility] [address] [place] [phone] * POTASSIUM URINE RANDOM (11/18/2022 2:14 PM CDT) Potassium Urine 37.2 mmol/L 11/18/2022 4:17 PM CDT [facility] Urine URINE SPECIMEN OBTAINED BY CLEAN CATCH PROCEDURE / Unknown Collection / Unknown 11/18/2022 2:14 PM CDT 11/18/2022 3:45 PM CDT Sacha Ruby DO LAB - URINE CHEMIS TRY ORDERABLES Performing Organization Address [facility] Co de Phone Number [facility] [address] [place] [phone] * PROTEIN URINE RANDOM QUANTITATIVE (11/18/2022 2:14 PM CDT) Protein Random Urine 7.3 <11.9 mg/dL 11/18/2022 4:23 PM CDT [facility] Urine URINE SPECIMEN OBTAINED BY CLEAN CATCH PROCEDURE / Unknown Collection / Unknown 11/18/2022 2:14 PM CDT 11/18/2022 3:45 PM CDT Sacha Ruby LAB - URINE CHEMIS TRY ORDERABLES Performing Organization Address [facility] de Phone Number [facility] [address] [place] [phone] * (ABNORMAL) MICROALB/CREAT RATIO URINE RANDOM PANEL (11/18/2022 2:14 PM CDT) Creatinine Urine 35.49 mg/dL 11/19/19 4:29 PM CDT [facility] Microalbumin Urine 1.9 mg/dL 11/18/2022 4:29 PM CDT [facility] Microalbumin/Crea tinine Ratio 53(H) <30 mg/g 11/18/2022 4:29 PM CDT [facility] Urine URINE SPECIMEN OBTAINED BY CLEAN CATCH PROCEDURE / Unknown Collection / Unknown 11/18/2022 2:14 PM CDT 11/18/2022 3:45 PM CDT Sacha Ruby DO LAB - URINE CHEMIS TRY ORDERABLES Performing Organization Address [facility] Co de Phone Number [facility] [address] [place] [phone] * UREA NITROGEN URINE RANDOM (11/18/2022 2:14 PM CDT) Urea Nitrogen Urine 488 mg/dL 11/18/2022 4:28 PM CDT [facility] Urine URINE SPECIMEN OBTAINED BY CLEAN CATCH PROCEDURE / Unknown Collection / Unknown 11/18/2022 2:14 PM CDT 11/18/2022 3:45 PM CDT Sacha Ruby DO LAB - URINE CHEMIS TRY ORDERABLES Performing Organization Address [facility] Co de Phone Number [facility] [address] [place] [phone] * SODIUM URINE RANDOM (11/18/2022 2:14 PM CDT) Sodium Urine 49 mmol/L 11/18/2022 4:17 PM CDT [facility] Urine URINE SPECIMEN OBTAINED BY CLEAN CATCH PROCEDURE / Unknown Collection / Unknown 11/18/2022 2:14 PM CDT 11/18/2022 3:45 PM CDT Sacha Ruby DO LAB - URINE CHEMIS TRY ORDERABLES Performing Organization Address [facility] Co de Phone Number [facility] [address] [place] [phone] * (ABNORMAL) BASIC METABOLIC PANEL (CALCIUM TOTAL) (11/18/2022 3:14 AM CDT) Glucose 122(H) 70 - 105 mg/dL 11/18/2022 5:09 AM CDT [facility] Sodium 136 136 - 145 mmol/L 11/18/2022 5:09 AM CDT [facility] Potassium 5.5(H) 3.5 - 5.1 mmol/L 11/18/2022 5:09 AM CDT [facility] Chloride 100 98 - 107 mmol/L 11/18/2022 5:09 AM CDT [facility] CO2 26 23 - 31 mmol/L 11/18/2022 5:09 AM CDT [facility] Calcium 9.9 8.4 - 10.4 mg/dL 11/18/2022 5:09 AM CDT [facility] Anion Gap 10 8 - 18 mmol/L 11/18/2022 5:09 AM CDT [facility] BUN 63(H) 8.4 - 25.7 mg/dL 11/18/2022 5:09 AM CDT [facility] Creatinine 1.70(H) 0.72 - 1.25 mg/dL 11/18/2022 5:09 AM T [facility] eGFR by CKD-EPI 44(L) >=90 mL/min/1.7 3 m2 11/18/2022 5:09 AM CDT [facility] Blood BLOOD SPECIMEN / Unknown Venipuncture / Unknown 11/18/2022 3:14 AM CDT 11/18/2022 4:32 AM CDT Alta Harrison MD LAB - CHEMISTRY ORD ERABLES Performing Organization Address City/[facility]/ZIP Co de Phone Number [facility] [address] [place] [phone] * (ABNORMAL) POTASSIUM BLOOD (11/17/2022 12:46 PM CDT) [facility] Potassium 5.6(H) 3.5 - 5.1 mmol/L 11/17/2022 1:19 PM CDT [facility] Blood BLOOD SPECIMEN / Unknown Venipuncture / Unknown 11/17/2022 12:46 PM CDT 11/17/2022 12:57 PM CDT Alta Harrison MD LAB - CHEMISTRY ORD ERABLES [facility] [address] [place], [place] [phone] * (ABNORMAL) CBC W/O DIFFERENTIAL (11/16/2022 12:27 PM CDT) WBC 11.8(H) 4.4 - 10.7 x10E9/L 11/16/2022 12:38 PM CDT [facility] RBC 3.76(L) 3.80 - 5.40 x10E12/L 11/16/2022 12:38 PM CDT [facility] Hemoglobin 11.1(L) 12.0 - 17.6 gm/dL 11/16/2022 12:38 PM CDT [facility] Hematocrit 35.5 35.2 - 51.7 % 11/16/2022 12:38 PM CDT [facility] MCV 94.4 80.7 - 98.3 fl 11/16/2022 12:38 PM CDT [facility] MCH 29.5 26.7 - 34.0 pg 11/16/2022 12:38 PM CDT [facility] MCHC 31.3 30.8 - 35.9 gm/dL 11/16/2022 12:38 PM CDT [facility] Platelet Count 278 153 - 416 x10E9/L 11/16/2022 12:38 PM CDT [facility] RDW-CV 14.5 12.1 - 14.9 % 11/16/2022 12:38 PM CDT [facility] MPV 8.8(L) 9.4 - 12.9 fl 11/16/2022 12:38 PM CDT [facility] Blood BLOOD SPECIMEN / Unknown Lab Venipuncture / Unknown 11/16/2022 12:27 PM CDT 11/16/2022 12:25 PM CDT Zay Perry MD LAB - HEMATOLOGY OR DERABLES [facility] [address] [place] [address] * (ABNORMAL) BASIC METABOLIC PANEL (CALCIUM TOTAL) (11/16/2022 12:04 AM CDT) Glucose 151(H) 70 - 105 mg/dL 11/16/2022 1:10 PM CDT [facility] Sodium 137 136 - 145 mmol/L 11/16/2022 1:10 PM CDT [facility] Potassium 5.9(H) 3.5 - 5.1 mmol/L 11/16/2022 1:10 PM CDT [facility] Chloride 99 98 - 107 mmol/L 11/16/2022 1:10 PM CDT [facility] CO2 29 23 - 31 mmol/L 11/16/2022 1:10 PM CDT [facility] Calcium 10.5(H) 8.4 - 10.4 mg/dL 11/16/2022 1:10 PM CDT [facility] Anion Gap 9 8 - 18 mmol/L 11/16/2022 1:10 PM CDT [facility] BUN 48(H) 8.4 - 25.7 mg/dL 11/16/2022 1:10 PM CDT [facility] Creatinine 1.64(H) 0.72 - 1.25 mg/dL 11/16/2022 1:10 PM CDT [facility] eGFR by CKD-EPI 46(L) >=90 mL/min/1.7 3 m2 11/16/2022 1:10 PM CDT [facility] Blood BLOOD SPECIMEN / Unknown Lab Venipuncture / Unknown 11/16/2022 12:04 AM CDT 11/16/2022 12:25 PM CDT Zay Perry MD LAB - CHEMISTRY ORD ERABLES [facility] [address], [place] [id number] * (ABNORMAL) BASIC METABOLIC PANEL (CALCIUM TOTAL) (11/12/2022 12:10 AM CDT) [facility] Glucose 125(H) 70 - 105 mg/dL 11/12/2022 5:47 AM CDT [facility] Sodium 137 136 - 145 mmol/L 11/12/2022 5:47 AM CDT [facility] Potassium 5.0 3.5 - 5.1 mmol/L 11/12/2022 5:47 AM CDT [facility] Chloride 105 98 - 107 mmol/L 11/12/2022 5:47 AM CDT [facility] CO2 23 23 - 31 mmol/L 11/12/2022 5:47 AM CDT [facility] Calcium 9.0 8.4 - 10.4 mg/dL 11/12/2022 5:47 AM CDT [facility] Anion Gap 9 8 - 18 mmol/L 11/12/2022 5:47 AM CDT [facility] BUN 33(H) 8.4 - 25.7 mg/dL 11/12/2022 5:47 AM CDT [facility] Creatinine 1.14 0.72 - 1.25 mg/dL 11/12/2022 5:47 AM CDT [facility] eGFR by CKD-EPI 71(L) >=90 mL/min/1.7 3 m2 11/12/2022 5:47 AM CDT [facility] Blood BLOOD SPECIMEN / Unknown Lab Venipuncture / Unknown 11/12/2022 12:10 AM CDT 11/12/2022 5:21 AM CDT Zay Perry MD LAB - CHEMISTRY ORD ERABLES [facility] [address] [place] [address] * (ABNORMAL) BASIC METABOLIC PANEL (CALCIUM TOTAL) (11/09/2022 4:16 AM CDT) Glucose 121(H) 70 - 105 mg/dL 11/09/2022 5:13 AM CDT [facility] Sodium 142 136 - 145 mmol/L 11/09/2022 5:13 AM CDT [facility] Potassium 4.1 3.5 - 5.1 mmol/L 11/09/2022 5:13 AM CDT [facility] Chloride 109(H) 98 - 107 mmol/L 11/09/2022 5:13 AM CDT [facility] CO2 26 23 - 31 mmol/L 11/09/2022 5:13 AM CDT [facility] Calcium 9.1 8.4 - 10.4 mg/dL 11/09/2022 5:13 AM CDT [facility] Anion Gap 7(L) 8 - 18 mmol/L 11/09/2022 5:13 AM CDT [facility] BUN 21 8.4 - 25.7 mg/dL 11/09/2022 5:13 AM CDT [facility] Creatinine 0.97 0.72 - 1.25 mg/dL 11/09/2022 5:13 AM CDT [facility] eGFR by CKD-EPI 86(L) >=90 mL/min/1.7 3 m2 11/09/2022 5:13 AM CDT [facility] Blood BLOOD SPECIMEN / Unknown Lab Venipuncture / Unknown 11/09/2022 4:16 AM CDT 11/09/2022 4:47 AM CDT Zay Perry MD LAB - CHEMISTRY ORD ERABLES [facility] [address] [place] [address] * (ABNORMAL) CBC W/O DIFFERENTIAL (11/09/2022 4:16 AM CDT) WBC 7.8 4.4 - 10.7 x10E9/L 11/09/2022 4:57 AM CDT [facility] RBC 3.64(L) 3.80 - 5.40 x10E12/L 11/09/2022 4:57 AM CDT [facility] Hemoglobin 10.6(L) 12.0 - 17.6 gm/dL 11/09/2022 4:57 AM CDT [facility] Hematocrit 33.2(L) 35.2 - 51.7 % 11/09/2022 4:57 AM CDT [facility] MCV 91.2 80.7 - 98.3 fl 11/09/2022 4:57 AM CDT [facility] MCH 29.1 26.7 - 34.0 pg 11/09/2022 4:57 AM CDT [facility] MCHC 31.9 30.8 - 35.9 gm/dL 11/09/2022 4:57 AM CDT [facility] Platelet Count 257 153 - 416 x10E9/L 11/09/2022 4:57 AM CDT [facility] RDW-CV 13.8 12.1 - 14.9 % 11/09/2022 4:57 AM CDT [facility] MPV 9.3(L) 9.4 - 12.9 fl 11/09/2022 4:57 AM CDT [facility] Blood BLOOD SPECIMEN / Unknown Lab Venipuncture / Unknown 11/09/2022 4:16 AM CDT 11/09/2022 4:47 AM CDT Zay Perry MD LAB - HEMATOLOGY OR DERABLES Performing Organization Address City/State/[facility] Co de Phone Number [facility] [address] [place] [address] * XR PELVIS W LEFT HIP 2VW (11/06/2022 5:20 PM CDT) Anatomical Region Laterality Modality Pelvis Radiographic Evelyn ging 11/06/2022 5:34 PM CDT Narrative 11/06/2022 5:34 PM CDT PROCEDURE: ??XR PELVIS W LEFT HIP 2VW, DATE/TIME OF EXAM: ??11/06/2022 5:20 PM, LOCATION ??[facility] INDICATION: OA Left hip 3 views HISTORY: [...] DATE/TIME OF EXAM: 11/06/2022 5:20 PM, LOCATION [facility] INDICATION: OA Left hip 3 views HISTORY: Hip pain Mild symmetric degenerative change the hip joints are present withminimal joint space narrowing. No fracture or dislocation is seen. Thesacroiliac joints are normal. The visualized soft tissues are normal DIAGNOSIS: Degenerative change > Interpreting Provider: Brad Cruz MD on 11/06/2022 5:34 PM Carolina Garibay MD DIAGNOSTIC IMAGING O RDERABLES * (ABNORMAL) BASIC METABOLIC PANEL (CALCIUM TOTAL) (11/05/2022 2:49 AM CDT) Glucose 116(H) 70 - 105 mg/dL 11/05/2022 3:51 AM CDT [facility] Sodium 140 136 - 145 mmol/L 11/05/2022 3:51 AM CDT [facility] Potassium 4.2 3.5 - 5.1 mmol/L 11/05/2022 3:51 AM CDT [facility] Chloride 111(H) 98 - 107 mmol/L 11/05/2022 3:51 AM CDT [facility] CO2 23 23 - 31 mmol/L 11/05/2022 3:51 AM CDT [facility] Calcium 8.5 8.4 - 10.4 mg/dL 11/05/2022 3:51 AM CDT [facility] Anion Gap 6(L) 8 - 18 mmol/L 11/05/2022 3:51 AM CDT [facility] BUN 20 8.4 - 25.7 mg/dL 11/05/2022 3:51 AM CDT [facility] Creatinine 0.91 0.72 - 1.25 mg/dL 11/05/2022 3:51 AM CDT [facility] eGFR by CKD-EPI >90 >=90 mL/min/1.7 3 m2 11/05/2022 3:51 AM CDT [facility] Blood BLOOD SPECIMEN / Unknown Lab Venipuncture / Unknown 11/05/2022 2:49 AM CDT 11/05/2022 3:13 AM CDT Zay Perry MD LAB - CHEMISTRY ORD ERABLES [facility] [address] [place] [address] * (ABNORMAL) CBC W/O DIFFERENTIAL (11/05/2022 2:20 AM CDT) Pathologist [facility] WBC 6.6 4.4 - 10.7 x10E9/L 11/05/2022 3:30 AM CDT [facility] RBC 3.26(L) 3.80 - 5.40 x10E12/L 11/05/2022 3:30 AM CDT [facility] Hemoglobin 9.7(L) 12.0 - 17.6 gm/dL 11/05/2022 3:30 AM CDT [facility] Hematocrit 30.1(L) 35.2 - 51.7 % 11/05/2022 3:30 AM CDT [facility] MCV 92.3 80.7 - 98.3 fl 11/05/2022 3:30 AM CDT [facility] MCH 29.8 26.7 - 34.0 pg 11/05/2022 3:30 AM CDT [facility] MCHC 32.2 30.8 - 35.9 gm/dL 11/05/2022 3:30 AM CDT [facility] Platelet Count 282 153 - 416 x10E9/L 11/05/2022 3:30 AM CDT [facility] RDW-CV 13.6 12.1 - 14.9 % 11/05/2022 3:30 AM CDT [facility] MPV 8.7(L) 9.4 - 12.9 fl 11/05/2022 3:30 AM CDT [facility] Blood BLOOD SPECIMEN / Unknown Lab Venipuncture / Unknown 11/05/2022 2:20 AM CDT 11/05/2022 3:13 AM CDT Zay Perry MD LAB - HEMATOLOGY OR DERABLES Performing Organization Address City/State/[facility] Co de Phone Number [facility] [address] [place] [address] * (ABNORMAL) BASIC METABOLIC PANEL (CALCIUM TOTAL) (11/02/2022 12:22 AM CDT) Glucose 110(H) 70 - 105 mg/dL 11/02/2022 8:43 AM CDT [facility] Sodium 140 136 - 145 mmol/L 11/02/2022 8:43 AM CDT [facility] Potassium 4.8 3.5 - 5.1 mmol/L 11/02/2022 8:43 AM CDT [facility] Chloride 112(H) 98 - 107 mmol/L 11/02/2022 8:43 AM CDT [facility] CO2 18(L) 23 - 31 mmol/L 11/02/2022 8:43 AM CDT [facility] Calcium 9.2 8.4 - 10.4 mg/dL 11/02/2022 8:43 AM CDT [facility] Anion Gap 10 8 - 18 mmol/L 11/02/2022 8:43 AM CDT [facility] BUN 27(H) 8.4 - 25.7 mg/dL 11/02/2022 8:43 AM CDT [facility] Creatinine 1.23 0.72 - 1.25 mg/dL 11/02/2022 8:43 AM CDT [facility] eGFR by CKD-EPI 65(L) >=90 mL/min/1.7 3 m2 11/02/2022 8:43 AM CDT [facility] Blood BLOOD SPECIMEN / Unknown Venipuncture / Unknown 11/02/2022 12:22 AM CDT 11/02/2022 8:14 AM CDT Zay Perry MD LAB - CHEMISTRY ORD ERABLES Performing Organization Address City/State/[facility] Co de Phone Number [facility] [address], [place] [id number] * (ABNORMAL) CBC W/O DIFFERENTIAL (11/02/2022 12:22 AM CDT) WBC 7.2 4.4 - 10.7 x10E9/L 11/02/2022 8:21 AM CDT [facility] RBC 3.12(L) 3.80 - 5.40 x10E12/L 11/02/2022 8:21 AM CDT [facility] Hemoglobin 9.3(L) 12.0 - 17.6 gm/dL 11/02/2022 8:21 AM CDT [facility] Hematocrit 29.1(L) 35.2 - 51.7 % 11/02/2022 8:21 AM CDT [facility] MCV 93.3 80.7 - 98.3 fl 11/02/2022 8:21 AM CDT [facility] MCH 29.8 26.7 - 34.0 pg 11/02/2022 8:21 AM CDT [facility] MCHC 32.0 30.8 - 35.9 gm/dL 11/02/2022 8:21 AM CDT [facility] Platelet Count 272 153 - 416 x10E9/L 11/02/2022 8:21 AM CDT [facility] RDW-CV 13.8 12.1 - 14.9 % 11/02/2022 8:21 AM CDT [facility] MPV 9.5 9.4 - 12.9 fl 11/02/2022 8:21 AM CDT [facility] Blood BLOOD SPECIMEN / Unknown Venipuncture / Unknown 11/02/2022 12:22 AM CDT 11/02/2022 8:14 AM CDT Zay Perry MD LAB - HEMATOLOGY OR DERABLES [facility] [address] [place] [address] * (ABNORMAL) BASIC METABOLIC PANEL (CALCIUM TOTAL) (10/31/2022 6:28 AM CDT) Glucose 122(H) 70 - 105 mg/dL 10/31/2022 8:21 AM [facility] Sodium 142 136 - 145 mmol/L 10/31/2022 8:21 AM [facility] Potassium 4.8 3.5 - 5.1 mmol/L 10/31/2022 8:21 AM [facility] Chloride 111(H) 98 - 107 mmol/L 10/31/2022 8:21 AM [facility] CO2 23 23 - 31 mmol/L 10/31/2022 8:21 AM [facility] Calcium 9.7 8.4 - 10.4 mg/dL 10/31/2022 8:21 AM [facility] Anion Gap 8 8 - 18 mmol/L 10/31/2022 8:21 AM [facility] BUN 35(H) 8.4 - 25.7 mg/dL 10/31/2022 8:21 AM [facility] Creatinine 1.28(H) 0.72 - 1.25 mg/dL 10/31/2022 8:21 AM [facility] eGFR by CKD-EPI 62(L) >=90 mL/min/1.7 3 m2 10/31/2022 8:21 AM [facility] Blood BLOOD SPECIMEN / Unknown Venipuncture / Unknown 10/31/2022 6:28 AM CDT 10/31/2022 7:43 AM CDT Valencia Johnson MD LAB - CHEMISTRY [place] Performing Organization Address City/[facility]/ZIP Co de Phone Number [facility] [address] [place] [id number] * VITAMIN B12 (10/30/2022 2:05 AM CDT) [facility] Vitamin B12 395 213 - 816 pg/mL 10/30/2022 3:45 AM CDT [facility] Blood BLOOD SPECIMEN / Unknown Lab Venipuncture / Unknown 10/30/2022 2:05 AM CDT 10/30/2022 2:53 AM CDT Donna Grimm MD LAB - CHEMISTRY [place] Performing Organization Address [facility] Co de Phone Number [facility] [address] [place] [address] * (ABNORMAL) VITAMIN D 25-HYDROXY (10/30/2022 2:05 AM CDT) [facility] Vitamin D, 25 Hydroxy 18.0(L) 30 - 100 ng/mL 10/30/2022 3:40 AM CDT [facility] Blood BLOOD SPECIMEN / Unknown Lab Venipuncture / Unknown 10/30/2022 2:05 AM CDT 10/30/2022 2:53 AM CDT Narrative [facility] - 10/30/2022 3:40 AM CDT Vitamin D Status: ?Deficiency ? <20 ? ng/mL ?Insufficiency ?? 20-30 ??ng/mL ?Sufficiency ? 30-100 ng/mL ?Toxicity ? >100 ?ng/mL Donna Grimm MD LAB - CHEMISTRY [place] [facility] [address], [place] [id number] * (ABNORMAL) BASIC METABOLIC PANEL (CALCIUM TOTAL) (10/29/2022 5:32 AM CDT) Glucose 160(H) 70 - 105 mg/dL 10/29/2022 6:36 AM CDT [facility] Sodium 141 136 - 145 mmol/L 10/29/2022 6:36 AM CDT [facility] Potassium 4.8 3.5 - 5.1 mmol/L 10/29/2022 6:36 AM CDT [facility] Chloride 110(H) 98 - 107 mmol/L 10/29/2022 6:36 AM CDT [facility] CO2 21(L) 23 - 31 mmol/L 10/29/2022 6:36 AM CDT [facility] Calcium 9.6 8.4 - 10.4 mg/dL 10/29/2022 6:36 AM CDT [facility] Anion Gap 10 8 - 18 mmol/L 10/29/2022 6:36 AM CDT [facility] BUN 42(H) 8.4 - 25.7 mg/dL 10/29/2022 6:36 AM CDT [facility] Creatinine 1.58(H) 0.72 - 1.25 mg/dL 10/29/2022 6:36 AM T [facility] eGFR by CKD-EPI 48(L) >=90 mL/min/1.7 3 m2 10/29/2022 6:36 AM T [facility] Blood BLOOD SPECIMEN / Unknown Lab Venipuncture / Unknown 10/29/2022 5:32 AM CDT 10/29/2022 6:04 AM CDT Zay Perry MD LAB - CHEMISTRY LAURA FERRO [facility] [address], [place] [id number] * (ABNORMAL) CBC W/O DIFFERENTIAL (10/29/2022 5:31 AM CDT) Pathologist [facility] WBC 8.7 4.4 - 10.7 x10E9/L 10/29/2022 6:51 AM CDT [facility] RBC 3.64(L) 3.80 - 5.40 x10E12/L 10/29/2022 6:51 AM CDT [facility] Hemoglobin 10.7(L) 12.0 - 17.6 gm/dL 10/29/2022 6:51 AM CDT [facility] Hematocrit 33.5(L) 35.2 - 51.7 % 10/29/2022 6:51 AM CDT [facility] MCV 92.0 80.7 - 98.3 fl 10/29/2022 6:51 AM CDT [facility] MCH 29.4 26.7 - 34.0 pg 10/29/2022 6:51 AM CDT [facility] MCHC 31.9 30.8 - 35.9 gm/dL 10/29/2022 6:51 AM CDT [facility] Platelet Count 308 153 - 416 x10E9/L 10/29/2022 6:51 AM CDT [facility] RDW-CV 13.7 12.1 - 14.9 % 10/29/2022 6:51 AM CDT [facility] MPV 9.1(L) 9.4 - 12.9 fl 10/29/2022 6:51 AM CDT [facility] Blood BLOOD SPECIMEN / Unknown Lab Venipuncture / Unknown 10/29/2022 5:31 AM CDT 10/29/2022 6:04 AM CDT Zay Perry MD LAB - HEMATOLOGY OR DERABLES [facility] [address] [place] [address] documented in this encounter Visit Diagnoses Diagnosis Acute kidney injury (HCC) Acute kidney failure, unspecified documented in this encounter Care Teams Liquor Commissioner Relationship Specialty Start Date End Date Ly Valenzuela MD [address] [place] [id number] PCP - General 03/06/22 documented as of this encounter
--- OUTSIDE RECORDS SUMMARY | 2024-05-22 00:01 | XMS_ITS | Referral Summary ---
Author Organization [facility] Address [address] [place] [place] [address] Care Team Providers Care Pyroglazer Name Role Phone Ly Valenzuela MD Primary Care Provider [phone] Source Comments [facility],non-owned Affiliates and Associated Physician Practices is amultiple site organization consisting of ambulatory clinics and hospital sitesin [place], [place], [place] and [place]. This disclosure is being madepursuant to the Care Everywhere program and may not contain all information available regarding this patient. Last updated 18.[facility] Allergies Active Allergy Reactions Criticality Noted Date [...] Active vitamin D, ergocalciferol, (Drisdol) 1.25 MG (58518 UT) capsule Take 1 (one) capsule by [...] type,Bradycardia,Ca rotid occlusion, right,Coronary artery disease involving iroquois coronary artery of iroquois heart without angina pectoris,JAMES (obstructive sleep apnea),Chronic obstructive pulmonary disease, unspecified COPD type ([facility]),Type 2 diabetes mellitus with stage 2 chronic kidney disease, with long-term current use of insulin ([facility]),Smoker,Caroti d stenosis, left Apply 1 (one) patch [...] Date Recorded PHQ2 TOTAL SCORE 0 12/13/2021 [facility] of Occupat ional Health - Occupational Stress [...] place to sleep or slept in a penitentiary (including now)? No 10/16/2022 Sex and Gender [...] Mass Index 31.84 10/20/2022 7:14 PM CDT Functional Status Functional Status Response Date of [...] person have difficulty concentrating/remembering/making decisions? No 10/16/2022 Plan of Treatment Not on file Medical Devices Implanted Type Area Merchandising Internship Device Identifier Shelf Expiration Date Model / Serial / Lot Loop Recorder Loop Recorder [employer] [id number] / [id number] / Procedures Procedure Name Priority Date/Time Associated [...] - 105 mg/dL 11/19/2022 4:32 AM CDT [facility] Sodium 140 136 - 145 mmol/L 11/19/2022 4:32 AM CDT [facility] Potassium 4.8 3.5 - 5.1 mmol/L 11/19/2022 4:32 AM CDT [facility] Chloride 105 98 - 107 mmol/L 11/19/2022 4:32 AM CDT [facility] CO2 26 22 - 29 mmol/L 11/19/2022 4:32 AM CDT [facility] Calcium 9.9 8.4 - 10.4 mg/dL 11/19/2022 4:32 AM CDT [facility] Anion Gap 9 6 - 16 mmol/L 11/19/2022 4:32 AM CDT [facility] BUN 56(H) 7 - 26 mg/dL 11/19/2022 4:32 AM CDT [facility] Creatinine 1.40(H) 0.72 - 1.25 mg/dL 11/19/2022 4:32 AM CDT [facility] eGFR by CKD-EPI 55(L) >=90 mL/min/1.7 3 m2 11/19/2022 4:32 AM CDT [facility] Blood BLOOD SPECIMEN / Unknown Lab Venipuncture / Unknown 11/19/2022 12:08 AM CDT 11/19/2022 3:50 AM CDT Zay Perry MD LAB - CHEMISTRY ORD ERABLES Performing Organization Address [facility] Co de Phone Number [facility] [address] [place] [phone] * (ABNORMAL) MICROALB/CREAT RATIO URINE RANDOM PANEL (11/18/2022 2:14 PM CDT) Creatinine Urine 35.49 mg/dL 11/19/19 4:29 PM CDT [facility] Microalbumin Urine 1.9 mg/dL 11/18/2022 4:29 PM CDT [facility] Microalbumin/Crea tinine Ratio 53(H) <30 mg/g 11/18/2022 4:29 PM CDT [facility] Urine URINE SPECIMEN OBTAINED BY CLEAN CATCH PROCEDURE / Unknown Collection / Unknown 11/18/2022 2:14 PM CDT 11/18/2022 3:45 PM CDT Sacha Ruby DO LAB - URINE CHEMIS TRY ORDERABLES Performing Organization Address [facility] Co de Phone Number [facility] [address] [place] [address] * (ABNORMAL) HEMOGLOBIN A1C (10/12/2022 10:31 PM CDT) Hemoglobin A1c 7.7(H) <=5.6 % 10/13/2022 8:30 AM CDT [facility] Estimated Average Glucose 174 mg/dL 10/13/2022 8:30 AM CDT [facility] Comment: HbA1c Interpretation: Normal : < 5.7% Pre-diabetes: 5.7-6.4% Diabetes: Equal to or greater than 6.5% Test results diagnostic of diabetes should be repeated for confirmation. Treatment target values recommended by ADA and other clinical organizations should be used to evaluate metabolic control in patients. Reference: [place] [employer], Standards of Care in Diabetes [...] Randolph MD LAB - CHEMISTRY [place]ELICE [place]ES [place] Organization Address City/State/ZIP Co de Phone Number [facility] [address] [place] [address], [facility] [phone] from Last 3 Months or Most Recently Relevant to Health Maintenance Advance Directives * Full Code (Latest Code Status on File) Date Activated Date Inactivated Comments 10/28/2022 10:18 PM 11/20/2022 8:18 PM * Full Code Date Activated Date Inactivated Comments 10/12/2022 7:38 PM 10/28/2022 9:39 PM * Full Code Date Activated Date Inactivated Comments 12/11/2021 12:36 PM 12/14/2021 5:07 PM Care Teams Pyroglazer Relationship Specialty Start Date End Date Ly Valenzuela MD [address] [place] [address] PCP - General 03/06/22
--- OUTSIDE RECORDS SUMMARY | 2024-05-22 00:01 | XMS_ITS | Encounter Summary ---
Author Organization [facility] Address [address] [place] [address] Care Team Providers Care Associate Account Executive Name Role Phone Ly Valenzuela MD Primary Care Provider [phone] Encounter Details Date Type Department Care Team (Latest Contact Info) Description 10/28/2022 11:43 AM CDT Hospital Encounter [address] [place] [address] Carolina Garibay MD [address] [place] [address] [employer] Social History Tobacco Use Types Packs/Day Years [...] Date Recorded PHQ2 TOTAL SCORE 0 12/13/2021 [facility] of Occupat ional Health - Occupational Stress [...] No 10/16/2022 documented as of this encounter Plan of Treatment Not on file documented as of this encounter Visit Diagnoses Not on filedocumented in this encounter Care Teams Associate Account Executive Relationship Specialty Start Date End Date Ly Valenzuela MD [address] [place] [address] PCP - General 03/06/22 documented as of this encounter
--- OUTSIDE RECORDS SUMMARY | 2024-05-22 00:01 | XMS_ITS | Encounter Summary ---
Author Organization [facility] Address [address] [place] [address] Care Team Providers Care Director Of Officiating Name Role Phone Ly Valenzuela MD Primary Care Provider [phone] Encounter Details Date Type Department Care Team (Latest Contact Info) Description 10/28/2022 9:34 PM CDT - 11/20/2022 7:12 PM CDT Hospital Encounter [address] [address] Carolina Garibay MD [address] [place] [address] [address] [place] [id number] General Rehabilitation Discharge Disposition: Correction Facility Social History Tobacco Use Types Packs/Day [...] Date Recorded PHQ2 TOTAL SCORE 0 12/13/2021 [facility] - Occupational Stress Questionnaire Answer Date Recorded [...] place to sleep or slept in a nursing home (including now)? No 10/16/2022 Sex and Gender [...] CQ) 21 MG/24HR patchIndications:Left- sided weakness,Ischemic stroke ([facility]),Dysphagia, unspecified type,Bradycardia,Carot id occlusion, right,Coronary artery disease involving [place] coronary artery of [place] heart without angina pectoris,JAMES (obstructive sleep apnea),Chronic obstructive pulmonary disease, unspecified COPD type ([facility]),Type 2 diabetes mellitus with stage 2 chronic kidney disease, with long-term current use of insulin ([facility]),Smoker,Carotid stenosis, left Apply 1 (one) patch to [...] daily vitamin D, ergocalciferol, (Drisdol) 1.25 MG (54021 UT) capsule Take 1 (one) capsule by mouth every 7 days documented as of this encounter OR Notes * Brief Op Note - Jorge Hall MD - 04/17/2022 3:21 PM CST IVR Post-Operative/Procedure Progress Note Surgeon: Jc Addison Pre-Procedure Diagnosis:carotid stenosis/occlusion Post-Procedure Diagnosis: -The KINSEY is occluded -The flow limiting stenosis of the LICA is artifactual and represents elevated velocities due to increased compensatory flow. Anesthesia: Local and IV Sedation Technical Procedure Performed: Diagnostic Catheter Cerebral Angiogram Findings: same as above Status: Stable Complications: None Estimated Blood Loss: negligible Film interpretation to be dictated in PACS Additional Instructions: None The patient tolerated the procedure well without incident or complication and was returned to Homein satisfactory condition. Jorge Hall MD Neurointervention Fellow documented in this encounter Plan of Treatment Not on file documented as of this encounter Procedures Procedure Name Priority Date/Time Associated Diagnosis Comments URIC ACID BLOOD Routine 11/03/2022 9:30 AM CDT documented in this encounter Results * URIC ACID BLOOD (11/03/2022 9:30 AM CDT) Uric Acid 5.8 3.5 - 7.2 mg/dL 11/03/2022 10:21 AM CDT [facility] Blood BLOOD SPECIMEN / Unknown Lab Venipuncture / Unknown 11/03/2022 9:30 AM CDT 11/03/2022 9:39 AM CDT Raul Vo MD LAB - CHEMISTRY [facility] Organization Address City/State/ZIP Co de Phone Number [facility] [address] [place] [address] documented in this encounter Visit Diagnoses Diagnosis Hyperkalemia- Primary Hyperpotassemia documented in this encounter Care Teams Director Of Officiating Relationship Specialty Start Date End Date Ly Valenzuela MD [address] [place] [address] PCP - General 03/06/22 documented as of this encounter
--- OUTSIDE RECORDS SUMMARY | 2024-05-22 00:02 | XMS_ITS | Encounter Summary ---
Author Organization [facility] Health Address [address] [place] [address] Care Team Providers Care Master Machinist Name Role Phone Ly Valenzuela MD Primary Care Provider [phone] Reason for Visit * Reason Comments Weakness Pt BIBems from [facility] d ue to left sided deficit. Pt was seen at [facility] due to throat abscess then upon discharge nurses noticed that he was slurring speech and had left sided deficit. Pts last known well is 1500 10/12/2022. Pt uses walker at baseline. Pt is A/ox4 and is complaining of headache. VSS Aphasia * Auth/Cert (Routine) Specialty Diagnoses / Procedures Referred By Lina t Referred To Contact Referral ID Status Reason Start Date Expiration Date Visits Re quested Visits Authorized [id number] 1 1 Encounter Details Date Type Department Care Team (Late st Contact Info) Description 10/12/2022 7:14 PM CDT - 10/28/2022 8:57 PM CDT Hospital Encounter [facility] [address] [place] [phone] Naseem Randolph MD [address] [place] [address] Jorge Hall MD [address] [place] [phone] Gregorio Khan MD [address] [facility] [address] [place] [address] Yelitza Grey MD [address] [place] [address] Francis Shepherd III, MD [address] [facility] [address] DIV [facility] [place] [address] Palma Rocha MD [address] [facility] DIV [place], [place] [id number] Internal Medicine Discharge Disposition: Rehab:Inpatient Social History Tobacco Use Types Packs/Day Years [...] Date Recorded PHQ2 TOTAL SCORE 0 12/13/2021 [facility] of Occupat ional Health - Occupational Stress [...] place to sleep or slept in a residential (including now)? No 10/16/2022 Sex and Gender Information Value Date Recorded Sex Assigned at Not on file Gender Identity Not on file Sexual Orientation Not on file documented as of this encounter Last Filed Vital Signs Vital Sign Reading [...] Mass Index 31.84 10/20/2022 7:14 PM CDT documented in this encounter Functional Status Functional Status Response [...] No 10/16/2022 documented as of this encounter Discharge Summaries * Dana Avalos MD - 10/28/2022 11:45 AM CDT Images from the original note were not included. Hospital Discharge Summary Patient ID: Esperanza Chaparro [id number] 67 year old 1955 Admit date: 10/12/2022 Discharge date: 10/28/22 Admitting Physician: Jorge Hall MD Discharge Physician:Dana Avalos Present on Admission: ??? Weakness ??? Ischemic stroke (CMS/HCC) ??? DM2 (diabetes mellitus, type 2) (CMS/HCC) ??? Hx of completed stroke ??? Primary hypertension ??? Smoker ??? Carotid occlusion, right ??? Carotid stenosis, left ??? JAMES (obstructive sleep apnea) ??? (Resolved) Peritonsillar abscess ??? (Resolved) Dyspnea ??? (Resolved) Respiratory acidosis Discharge Diagnoses: Ischemic stroke (MCA, SHEA ) Left hemiplegia Peritonsillar abscess Sinus bradycardia Dysphagia Admission Condition: critical Discharged Condition: fair Indication for Admission: Acute stroke Hospital Course: Esperanza Chaparro is a 67 year old male with past medical history of CAD, COPD , hypertension, diabetes, sleep apnea, colon cancer s/p colectomy initially presented to [facility] ER forperitonsillar abscess but in Er was found to have neurodeficits so was transferred to [facility] ER. Imaging confirmed Acute on chronic Rt MCA and SHEA ischemoic strokes. Also showed rt ICA occlusion whichwas chronic. Stroke Mechanism: Large Artery: Flow failure vs. Carotid stump styndrome Pt got tPA in ER and was admitted to neuro ICU. MT Not pursued due to low ASPECT score. Later extubated and transferred to floor. NGT feeding d/sylvia and patient taking thin liquids and pureed diet with aspiration precautions.Pt kept on ASA, Plavix (to complete 90 days-EOT 01/18/23), Statin, Jardiance, Pt transferred to [facility] on 10/21. Now t has been finishing ~50% of his meals. Note pt finished course of Unasyn for peritonsillar abscess. Also was noticed to have asymptomatic bradycardia (/first degree av block).His coreg is held for HR <60/min.Now transferred to rehab for continuation of pt/ot. Consults: Neurology Pending Labs and Studies: None Discharge Communication: Patient's hospital course was conveyed to PCP. Significant Diagnostic Studies: CBC: Recent Labs Lab Units 10/26/22 0414 10/23/22 0543 WBC 10??3/uL 10.5 14.0* RBC 10??6/uL 4.27* 3.73* HGB g/dL 12.3 10.9* HCT % 38.1 33.1* BMP: Recent Labs Lab Units 10/27/22 0556 10/26/22 0414 10/23/22 0543 NA mmol/L 141 145 141 CL mmol/L 109* 112* 108* CO2 mmol/L 25 26 26 BUN mg/dL 31* 34* 31* CREATININE mg/dL 1.35* 1.35* 1.17* CALCIUM mg/dL 9.5 10.1 9.1 Magnesium: No results for input(s): MG in the last 168 hours. Phosphorus: Recent Labs Lab Units 10/27/22 0556 10/26/22 0414 10/23/22 0543 PHOS mg/dL 4.2 4.7 3.3 Coagulation: No results for input(s): PT, INR, APTT in the last 168 hours. Endocrine: No results for input(s): TSH, A1C in the last 168 hours. LFTs: Recent Labs Lab Units 10/27/22 0556 AST U/L 23 ALT U/L 58* TBILI mg/dL 0.6 ALB g/dL 2.7* Imaging: ?? FL SWALLOWING FUNCTION STUDY ?? Result Date: 10/19/2022 PROCEDURE: FL SWALLOWING FUNCTION STUDY, DATE/TIME OF EXAM: 10/19/2022 8:12 AM, LOCATION [facility] INDICATION: R13.10: Dysphagia, unspecified type ADDITIONAL CLINICAL INFORMATION: Ordering Provider Reason For Exam: further swallow function eval per speech therapist Technologist Note: Additional: COMPARISON: None. FLUOROSCOPY TIME: 203 seconds TECHNIQUE: Modified barium swallow fluoroscopy performed in conjunction with speech pathology staff. The speech pathologist administeredvarying thickness barium liquids and solids under direct Cine fluoroscopy. FINDINGS/IMPRESSION: Fluoroscopic assistance was provided for a modified barium swallow test performed by Speech Therapy. Please see the Speech Therapy report for details. Report dictated by Jacobo Gupta MD (residential tech). I, Adiel Lynn MD have personally reviewed and interpreted this examination/study. > Interpreting Provider: Adiel Lynn MD on 10/19/2022 12:26 PM ?? CT HEAD WO CONTRAST ?? Result Date: 10/17/2022 PROCEDURE: CT HEAD WO CONTRAST, DATE/TIME OF EXAM: 10/17/2022 3:17 AM, LOCATION [facility] INDICATION: R53.1: Weakness ADDITIONAL CLINICAL INFORMATION: Ordering [...] of encephalomalacia is again seen in the lateralright occipital lobe, grossly unchanged compared to the [...] is mild paranasal sinus disease. The nasal septumis deviated to the left with a septal spur in contact with the left inferior turbinate. A nasoenteric tube is seen through the right nostril. Question arose of the middle turbinates bilaterally, unspecified left side. The mastoid air cells are grossly clear. No soft tissue abnormality is identified. ?? IMPRESSION: 1.Redemonstration of evolving large right MCA and right SHEA territory infarcts with expected interval evolution compared to prior. Persistent cytotoxic edema, grossly similar to the priorhowever, there has been interval increased conspicuity of the infarcts compared to prior, compatible with expected interval evolution. 2.Persistent local mass effect and effacement of the right lateral ventricle. Similar or slightly decreased xpdem-zo-scyy midline shift as outlined above. 3.No evidence of hemorrhagic transformation. > Dictated by Miguel Escamilla MD (residential tech). I, Sundar Devine MD have personally reviewed and interpreted this examination/study. > Interpreting Provider: Sundar Devine MD on 10/17/2022 4:50 PM ?? XR ABDOMEN KUB PORTABLE ?? Result Date: 10/16/2022 PROCEDURE: XR ABDOMEN KUB PORTABLE, DATE/TIME OF EXAM: 10/16/2022 12:55 PM, LOCATION [facility] INDICATION: I63.9: Ischemic stroke (CMS/HCC) ADDITIONAL CLINICAL INFORMATION: Ordering Provider Reason For Exam: NG tube placement verification COMPARISON: Abdominal radiograph 10/13/2022 FI NDINGS/IMPRESSION: *Enteric tube courses below the diaphragm with the distal tip superimposing the antropyloric region. *Mild gaseous dilation of the small bowel and colon is partially visualized, similar in appearance to prior. Report dictated by Oscar Santizo MD (residential tech). Ranjit Orourke MD have personally reviewed and interpreted this examination/study. > Interpreting Provider: Ranjit Nunez MD on 10/16/2022 5:21 PM ?? CT HEAD WO CONTRAST ?? Result Date: 10/16/2022 PROCEDURE: CT HEAD WO CONTRAST, DATE/TIME OF EXAM: 10/16/2022 3:55 AM, LOCATION [facility] INDICATION: R53.1: Weakness ADDITIONAL CLINICAL INFORMATION: Ordering Provider Reason For Exam: assessing cerebral edema COMPARISON: CT head without contrast from 10/14/2021. MRI brain without contrast from 10/14/2022. EXAMINATION: Computed tomography (CT) of the head without contrast TECHNIQUE:CT of the head was performed without contrast according to standard protocol. CT dose reduction technique was used, including Automated Exposure Control FINDINGS: Fracture present on multiple images significantly limiting this study. There is extensive decreased attenuation involving most of the right cerebral hemisphere consistent with evolving acute infarction in the distributions of portions of the middle and anterior cerebral arteries. There is no definite hemorrhagic transformation. Mass effect is produced with approximately 5.7 mm of midline shift right to left. There is some compression of the right lateral ventricle and effacement of the left lateral and third ventricles. There is no evidence of ventricular dilatation. Small cortical infarcts are noted in the left cerebellar hemisphere Patchy decreased attenuation is noted within the white matter of the left cerebral hemisphere l ikely related to small vessel disease in a patient of this age. Bone window images demonstrate no evidence of definite calvarial fracture or bone destruction When today's study is compared to a previous dated 14 October 2022 there is been further evolution of the extensive areas of infarction in the right cerebral hemisphere with greater mass effect and midline shift right to left. ?? IMPRESSION: Motion artifact significantly limiting this study. 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 Clinical correlation and continued close follow-up are recommended. 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 Findings consistent small vessel disease in the left cerebral hemisphere. The preliminary results of this study were discussed byDr. Cleveland with the patient's care provider, Dr. Brannon on, 16 October 2022 at 0534 hours with read back confirmation and verification. Report dictated by Romain Mckee MD, PhD (residential tech). I, Arnav Lock MD have personally reviewed and interpreted this examination/study. > Interpreting Provider: Arnav Lock MD on 10/16/2022 1:21 PM ?? ECHO TRANSTHORACIC W BUBBLE STUDY ?? Result Date: 10/15/2022 ??? Left??Ventricle: Left ventricle is mildly dilated. Normal systolic function. EF by 2D Ayala biplane is 61%. Regional wall motion abnormalities present. See diagram for wall motion findings. Normal diastolic function. ??? Left??Atrium: No interatrial septum shunt present viewable with agitatedsaline. ?? CT HEAD WO CONTRAST ?? Result Date: 10/14/2022 PROCEDURE: CT HEAD WO CONTRAST DATE/TIME OF EXAM: 10/14/2022 10:36 AM CLINICAL INFORMATION: None relevant/not provided if blank. Indication: R53.1: Weakness Additional History: COMPARISON: MRI brain 10/14/2022, CT head 10/13/2022 TECHNIQUE: Noncontrast CT brain was performed utilizing standard protocol. CT dose reduction technique was used, including Automated Exposure Control. FINDINGS: Interval increase in the confluent hypodensity involving the right frontal parietal and temporal lobes right MCA territory and also in the right SHEA territory consistent with known acute evolving infarct. There is localized mass effect with effacement of the sulci. No significant midline shift. Chronic infarct inthe right occipital lobe. Previously noted minimal petechial hemorrhages on MRI are not conspicuouson this study could be secondary to technique. Minimal mass effect on the right lateral ventricle. Mild interval decrease in the caliber of right lateral ventricle compared to the prior study. Mild interval decrease in the caliber of ventricles compared to prior study could be secondary to edema. For example third ventricle previously measured 8 mm now measures about 6 mm. Basilar cisterns are patent. No evidence of transtentorial or tonsillar herniation. Redemonstration of expansile lesion invo lving the the clivus No interval change in the expansile soft tissue lesion along the left lateral aspect of the sella with the thinning of the bone, unchanged compared to study from 12/11/2021 with the T2 hyperintensity on MRIs could be secondary to benign lesions like mucoceles however no postcontrast imaging is available for accurate characterization. Otherwise no acute osseous abnormality. Bilateral cataract replacement. ?? IMPRESSION: 1. Redemonstration of large confluent evolving acute infarction in the right MCA territory and right SHEA territory involving most of the right cerebral hemisphere with local mass effect. No significant midline shift or evidence of herniation. No large hematoma however minimal petechial hemorrhages cannot be excluded. > Interpreting Provider: Re Sage MD on 10/14/2022 4:40 PM ?? MRI BRAIN WO CONTRAST ?? Result Date: 10/14/2022 PROCEDURE: MRI BRAIN WO CONTRAST, DATE/TIME OF EXAM: 10/14/2022 12:00 AM, LOCATION [facility] INDICATION: R53.1: Weakness ADDITIONAL CLINICAL INFORMATION: Ordering Provider Reason ForExam: Acute ischemic stroke EXAMINATION: Magnetic resonance imaging [...] basal ganglia, including putamen and caudate nuclei. Thisbelong to the right SHEA and MCA territory. [...] Encephalomalacia/gliosis is seen in the region of rightsuperior frontal lobe (series 9 image 19) and right temporoparietal region (series 9 image 10). Thecorpus callosum and sella appear normal. The posterior fossa, brainstem, and craniocervical junction appear normal. Other than bilateral cataract extractions, the visualized portions of the orbits appear grossly unremarkable. There is mild paranasal sinus disease. There is mild opacification in themastoid air cells, left more than right. The patient is intubated. Fluid and retained secretions inthe nasopharynx. The calvarium and visualized cervical spine appear normal. ?? IMPRESSION: 1.Acute infarct involving the right SHEA [...] verification. Report dictated by Miguel Escamilla MD (residential tech) ISundar MD have personally reviewed and interpreted this examination/study. > Interpreting Provider: Sundar Devine MD on 10/14/2022 1:12 PM ?? XR ABDOMEN KUB PORTABLE ?? Result Date: 10/14/2022 PROCEDURE: XR ABDOMEN KUB PORTABLE, DATE/TIME OF EXAM: 10/13/2022 10:23 PM, LOCATION [facility] INDICATION: R13.10: Dysphagia, unspecified type ADDITIONAL CLINICAL INFORMATION: Ordering Provider Reason For Exam: OG tube placement COMPARISON: Abdominal radiograph 10/13/2022 at 10:52 AM FINDINGS/IMPRESSION: Enteric tube courses below the diaphragm with the distal tip superimposing thegastric body. Partially imaged colonic gaseous distention, increased from the prior exam. Report dictated by Oscar Santizo MD (residential tech). I, CEDRIC FLORES MD have personally reviewedand interpreted this examination/study. > Interpreting Provider: CEDRIC FLORES MD on 10/14/2022 7:05 AM ?? CT HEAD NON CONTRAST ?? Result Date: 10/13/2022 EXAM: CT HEAD WO CONTRAST, DATE/TIME OF EXAM: 10/13/2022 8:29 PM, LOCATION: [facility] HISTORY: R53.1: Weakness ADDITIONAL CLINICAL INFORMATION: Ordering Provider Reason For Exam: Post tPa imaging EXAMINATION: CT scan of the head without intravenous contrast TECHNIQUE: CT of the head was performed without intravenous contrast according to standard protocol. CT dose reduction technique was used, including Automated Exposure Control. COMPARISON: Head CTs 10/13/2022 at 1:07 AM and 10/12/2022. FINDINGS: See impression. ?? IMPRESSION: 1.Further increased conspicuity of large areas of hypoattenuation with loss of goldman-white differentiation involving the right frontal, parietal, and temporal lobes in addition to the right insula, which is consistent with an evolving large acute infarct corresponding to the right middlecerebral artery (MCA) vascular territory. 2.Further increased conspicuity of a moderately-size areaof hypoattenuation with loss of goldman-white differentiation along the parasagittal right frontal lobe, consistent with an evolving large acute infarct corresponding to the right anterior cerebral artery (SHEA) vascular territory. 3.No evidence of hemorrhagic conversion, significant midline shift, brain herniation, or evidence of hydrocephalus. 4.Please refer to recently reported head CTs 10/12/2022 and 10/12/2022 for description of additional chronic findings. Results of this exam were verbally discussed by Dr. Zelda Willams with Dr. Brannon on 10/13/2022 at 9:02 PM for a Critical Stroke Protocol withreadback confirmation and verification. The images were reviewed by attending physician Dr. Zelda Willams prior to this communication. > Interpreting Provider: Zelda Willams MD, PhD on 10/13/2022 9:09 PM ?? XR CHEST 1VW PORTABLE ?? Result Date: 10/13/2022 PROCEDURE: XR CHEST 1VW PORTABLE, DATE/TIME OF EXAM: 10/13/2022 1:53 AM, LOCATION [facility] INDICATION: R06.00: Dyspnea, unspecified type ADDITIONAL CLINICAL INFORMATION: Ordering Provider Reason For Exam: ETT position COMPARISON: Chest x-ray 10/13/2022. FINDINGS/IMPRESSION: Endotracheal tube terminates at the level of thoracic inlet/mid thoracic trachea, approximately 7 cm above the cathi. A loop recorder superimposes the left chest. There is minimal basilar atelectasis. There is no focal consolidation, pleural effusion, or pneumothorax. The heart size is normal and mediastinal contours are normal. > Dictated by Noe Bravo MD (residential tech). IWen MD have personally reviewed and interpreted this examination/study. > Interpreting Provider: Wen Lee MD on 10/13/2022 2:16 PM ?? XR CHEST 1VW PORTABLE ?? Result Date: 10/13/2022 EXAMINATION: XR CHEST 1VW PORTABLE HISTORY: E87.29: Respiratory acidosis COMPARISON: Chest radiograph 10/13/2022 at 1:46 AM FINDINGS/IMPRESSION: Lines: *Endotracheal tube terminates within the mid thoracic trachea. *A loop recorder is partially visualized superimposing the left chest. Aside from mildbibasilar atelectasis, there is no confluent consolidation. No pleural effusion is seen. No pneumothorax is identified. The cardiac silhouette is within normal limits. Aortic atherosclerosis is noted. The superior mediastinal contours are within normal limits. No acute osseous abnormality is identified. Report dictated by Oscar Santizo M.D. (residential tech) 10/13/2022 7:05 AM CEDRIC Orourke MD have personally reviewed and interpreted this examination/study. > Interpreting Provider: CEDRIC FLORES MD on 10/13/2022 2:14 PM ?? XR ABDOMEN KUB PORTABLE ?? Result Date: 10/13/2022 PROCEDURE: XR ABDOMEN KUB PORTABLE, DATE/TIME OF EXAM: 10/13/2022 11:01 AM, LOCATION [facility] INDICATION: R53.1: Weakness ADDITIONAL CLINICAL INFORMATION: Ordering Provider Reason For Exam: MRI COMPARISON: None. TECHNIQUE: Supine frontal radiograph of the abdomen. FINDINGS: A looprecorder overlies the left axilla. No evidence of retained metallic density foreign bodies within the abdomen. The urinary bladder is opacified with contrast material. Moderate gas and stool are present. There are no findings to suggest bowel obstruction, free intraperitoneal gas or pneumatosis. Noabnormal calcifications are seen. No bone abnormality is seen. ?? IMPRESSION: 1.A loop recorder overlies the left axilla. No evidence of retained metallic density foreign bodies within the abdomen. 2.Nonobstructive bowel gas pattern. Report dictated by Oscar Santizo M.D. (residential tech) 10/13/2022 11:03 AM IAdiel MD have personally reviewed and interpreted this examination/study. > Interpreting Provider: Adiel Lynn MD on 10/13/2022 1:03 PM ?? XR CHEST 1VW PORTABLE ?? Result Date: 10/13/2022 EXAMINATION: XR CHEST 1VW PORTABLE HISTORY: R06.00: Dyspnea, unspecified type E87.29: Respiratory acidosis COMPARISON: Chest radiograph 10/12/2022 FINDINGS/IMPRESSION: Lines: *Interval insertion of endotracheal tube which terminates in the proximal thoracic trachea, 6 cm from the cathi. *A loop recor manish superimposes the left chest. No confluent consolidation is noted. No pleural effusion is seen. No pneumothorax is identified. The heart is borderline enlarged. Aortic atherosclerosis is noted. The superior mediastinal contours are within normal limits. No acute osseous abnormality is identified. Report dictated by Oscar Santizo M.D. (residential tech) 10/13/2022 7:05 AM Adiel Orourke MD have personally reviewed and interpreted this examination/study. > Interpreting Provider: Adiel Lynn MD on 10/13/2022 11:43 AM ?? CT NECK SOFT TISSUE W CONT ?? Result Date: 10/13/2022 PROCEDURE: CT NECK SOFT TISSUE W CONT, DATE/TIME OF EXAM: 10/13/2022 1:29 AM, LOCATION [facility] INDICATION: R06.00: Dyspnea, unspecified type ADDITIONAL CLINICAL INFORMATION: Ordering Provider Reason For Exam: Peritonsillar abscess Technologist Note: None. Additional: Per chart review, patient was difficult to intubate and multiple attempts were required. CONTRAST: IOPAMIDOL 76 % IV SOLN:75 mL EXAMINATION: Computed tomography (CT) of the neck with contrast TECHNIQUE: CT of theneck was performed following the uneventful administration of 75 mL Isovue-370 contrast according to standard protocol. CT dose reduction technique was used, including Automated Exposure Control. COMP ARISON: CT angiogram of the neck performed 10/30 [...] kenneth bullosa.. Paraseptal emphysema and lung scarring. ?? IMPRESSION: 1.Findings concerning for right peritonsillar abscess with associated diffuse pharyngitis and extensive laryngeal edema, extending to the level of the supraglottic larynx, resulting in airway compromise status post endotracheal intubation. Preliminary findings were discussed with the patient's care provider, Dr. Brannon by Dr. Cleveland via telephone at 0248 on 10/13/2022 with readback comprehension and verification. > Dictated by Dean Cleveland M.D. (residential tech) Sundar Orourke MD have personally reviewed and interpreted this examination/study. > Interpreting Provider: Sundar Devine MD on 10/13/2022 10:39 AM ?? CT HEAD WO CONTRAST ?? Result Date: 10/13/2022 PROCEDURE: CT HEAD WO CONTRAST, DATE/TIME OF EXAM: 10/13/2022 1:26 AM, LOCATION [facility] INDICATION: I63.9: Ischemic stroke (CMS/HCC) EXAMINATION: Computed tomography (CT) of the head without contrast ADDITIONAL CLINICAL INFORMATION: Ordering Provider Reason For Exam: Acute respiratory distress. R/o central causes Technologist Note: None. Additional: None. TECHNIQUE: CT of the head was performed without contrast according to standard protocol. CT dose reduction technique was used, including Automated Exposure Control. COMPARISON: CT of the head from 10/12/2022. FINDINGS: No acute intra- or extra-axial fluid collections are identified. There is mild cerebral volume loss with associated ex vacuo ventricular dilatation. The basilar cisterns are patent. No significant mass effect or midline shift is seen. There has been interval mild diffuse but subtle hypoattenuation and loss of orozco-white matter differentiation involving larger portions of the right frontal and right temp oral lobes as well as the right insula, and possibly posterior lateral temporal lobes which could represent acute evolving acute right MCA territory infarcts. MRI of the brain is recommended for further evaluation. Additional subtle hypoattenuation along the parasagittal right frontal lobe is also noted. Redemonstration of chronic infarcts with areas of encephalomalacia and gliosis in the right frontal and right parietal as well as the right occipital lobes compatible with chronic right MCA, SHEA, and BOARD MEMBER territory infarcts. Additional tiny lacunar infarcts in the bilateral cerebellar hemispheres are again noted. Periventricular white matter hypoattenuation is indicative of chronic small vess el ischemic disease. There is vascular calcification of the carotid siphons. No acute calvarial fracture is identified. Other than bilateral cataract extractions, the orbits appear normal. There is mild paranasal sinus disease. Opacification of the nasal passages and the nasopharynx. The patient is intubated. The mastoid air cells are grossly clear. Calcific densities along the left frontal scalpare again noted. No soft tissue abnormality is otherwise identified. ?? IMPRESSION: 1.Suggestion of interval diffuse edema in the right MCA territory concerning for evolving right MCA territory ischemia. MRI of the brain is recommended for further evaluation.. 2.Additional chronic findings as outlined above. Results of this exam were communicated with closed loop confirmation to Dr. Mendenhall by Dr. Devine on 10/13/2022 at 9:54 AM with read back compression and verification. Report dictated by Romain Mckee MD, PhD (residential tech). ISundar MD have personally reviewed and interpreted this examination/study. > Interpreting Provider: Sundar Devine MD on 10/13/2022 10:21 AM ?? XR CHEST 1VW PORTABLE ?? Result Date: 10/13/2022 EXAMINATION: XR CHEST 1VW PORTABLE HISTORY: R53.1: Weakness COMPARISON: Chest radiograph dated 12/11/2021 FINDINGS/IMPRESSION: Lines: *A loop recorder superimposes the left chest. No confluent consolidation is noted. No pleural effusion is seen. No pneumothorax is identified. The heart is enlarged for this AP view. Aortic atherosclerosis is noted. The superior mediastinal contours are within normallimits. No acute osseous abnormality is identified. No free air is seen under the diaphragm. > Interpreting Provider: CEDRIC FLORES MD on 10/13/2022 6:36 AM ?? CT ANGIO BRAIN NECK STROKE ?? Result Date: 10/12/2022 EXAM: CT ANGIO BRAIN NECK STROKE, DATE/TIME OF EXAM: 10/12/2022 7:42 PM, LOCATION: [facility] HISTORY: Code Stroke EXAMINATION: CT angiogram images [...] right middle cerebral artery (MCA) via the [place] of [place]iz[place]/patent anterior communicating artery. Diminished opacification of the right MCA M1 segment and distal branches with notable markedly diminutive opacification versus nonopacification of the MCA M3 segment and beyond. No occlusion or hemodynamical ly significant stenosis elsewhere of the major intracranial arteries. Patent intracranial left ICA,left MCA, bilateral ACAs, vertebral artery V4 segments, [...] ARTERIES: No occlusion or hemodynamically significant stenosis. Noevidence of dissection. OTHER: Partially imaged lung apices are clear. Calcified subcarinal lymph nodes, suggestive of prior healed granulomatous disease. No neck mass or suspicious lymph nodes. No acute or suspicious osseous abnormality. Mild degenerative changes of the cervical spine. ?? IMPRESSION: 1.Re-demonstrated long segment occlusion of the right ICA from the carotid bulb to the terminus with reconstitution of flow to the right SHEA and MCA via the mi[place] of [place]vizu. Diminished opacification of the right [...] communication. Report dictated by Gilbert Morrow MD (residential tech). I, Zelda Willams MD, PhD have personally reviewed and interpreted this examination/study. > Interpreting Provider: Zelda Willams MD, PhD on 10/12/2022 8:51 PM ?? CT BRAIN - Stroke ?? Result Date: 10/12/2022 EXAM: CT BRAIN STROKE, DATE/TIME OF EXAM: 10/12/2022 7:32 PM, LOCATION: [facility] HISTORY: Code Stroke EXAMINATION: CT scan of [...] PARENCHYMA: No acute parenchymal hemorrhage. Apparent hypodensity ofthe right anterior temporal lobe and insular region, which is nonspecific and may be attributable to motion artifact or possibly representing areas of evolving acute infarct. No mass effect, midline shift, or brain herniation. Re-demonstrated areas of encephalomalacia involving the right frontal and right parietal lobes, consistent with chronic infarcts involving the right middle cerebral artery ( MCA) vascular territory and right anterior cerebral artery (SHEA)/MCA watershed territory. Re-demonstrated area of encephalomalacia involving the right occipital lobe, consistent with a chronic infarct involving the right posterior cerebral artery (BOARD MEMBER) vascular territory. Multiple small chronic lacunes of [...] tissues. Mildly expansile soft tissue lesion of exl-bi-ydascdalsr of the sella turcica measuring 2.1 x 1.6 cm (09/03), which is associated with thinning of thedorsum sellae and is incompletely assessed on this examination. Paranasal sinuses and mastoids demonstrate no significant abnormality. Bilateral lens replacement; otherwise, orbits are unremarkable. Mild calcific atherosclerosis of the carotid siphons. ?? IMPRESSION: 1.No acute intracranial hemorrhage. 2.Apparent hypodensity of the right anterior temporal lobe and insular region, which is nonspecific and may be attributable to motion artifact or possibly representing areas of evolving acute infarct. Recommend follow-up brain MRI without contrast forfurther evaluation. 3.Multiple chronic infarcts of the right [...] contrast. Results of this exam were verbally discussedby Dr. Zelda Willams with Dr. Brannon on 10/12/2022 at 7:44 PM for a Critical Stroke Protocol with readback confirmation and verification. The images were reviewed by attending physician Dr. Zelda Willamsprior to this communication. > Interpreting Provider: Zelda Willams MD, PhD on 10/12/2022 8:20 PM Discharge Exam: Blood pressure 143/58, pulse 51, temperature 97.5 ??F (36.4 ??C), temperature source Oral, resp. rate 18, height 1.803 m (5' 11 ), weight 103.6 kg (228 lb 4.8 oz), SpO2 93 %. GEN: NAD, CHEST: Clear to auscultation bilaterally HEART: Regular rate and rhythm, Nl S1 and S2 No gallops. GI: Abdomen soft and non tender, non-distended, +BS EXT: No edema. Neuro: Awake, oriented. Left hemiplegia PSYCH: Alert and oriented to person place time and situation. Good mood, appropriate affect. Disposition:[facility] Re[facility] Patient Instructions: Medication List START taking these medications acetaminophen 325 MG tablet Commonly known as: Tylenol Take 2 (two) tablets by mouth every 8 hours Maximum allowable Acetaminophen amount = 4 Grams (4000 mg) / 24 hours. albuterol-ipratropium 0.5-2.5 (3) MG/3ML nebulizer solution Commonly known as: Duo-Neb Inhale 3 mL by mouth every 4 hours as needed for Shortness of Breath or Wheezing amLODIPine 10 MG tablet Commonly known as: Norvasc Take 1 (one) tablet by mouth once daily Start taking on: October 29, 2022 bismuth subsalicylate 262 MG chew tablet Commonly known as: Pepto-Bismol Take 2 (two) tablets by mouth as needed budesonide-formoterol 160-4.5 MCG/ACT inhaler Commonly known as: Symbicort Inhale 2 (two) puffs by mouth 2 times daily calcium carbonate 500 MG chew tablet Commonly known as: Tums Take 2 (two) tablets by mouth every 2 hours as needed for Heartburn clopidogrel 75 MG tablet Commonly known as: plaVIX Take 1 (one) tablet by mouth once daily for 81 days Start taking on: October 29, 2022 * glucose (Diabetic Use) oral liquid Commonly known as: Dex4 Glucose Take by mouth as needed for Other (Bedside Glucose less than 70 mg/dL -If able to eat and does not have swallowing difficulties) * glucose (Diabetic Use) 15 GM/32ML oral gel Take by mouth as needed for Other (Bedside Glucose less than 70 mg/dL -If able to eat and does not have swallowing difficulties) * glucose 4 G chew tablet Take 4 (four) tablets by mouth as needed heparin 5000 UNIT/ML injection Inject 1 mL subcutaneously every 8 hours insulin glargine pen Commonly known as: Lantus Inject 10 (ten) Units subcutaneously every 24 hours Start taking on: October 29, 2022 insulin lispro 100 UNIT/ML pen Commonly known as: HumaLOG;ADMelog Inject 0 (zero) Units to 12 (twelve) Units subcutaneously 3 times daily with meals lidocaine 5 % patch Commonly known as: Lidoderm Apply 1 (one) patch to skin every 24 hours Apply patch to most painful area and remove after 12 hours. May reapply a new patch 12 hours later. losartan 50 MG tablet Commonly known as: Cozaar Take 1 (one) tablet by mouth once daily Start taking on: October 29, 2022 melatonin 1 MG tablet Take 8 (eight) tablets by mouth once daily nicotine 21 MG/24HR patch Commonly known as: Nicoderm CQ Apply 1 (one) patch to skin once daily Start taking on: October 29, 2022 simethicone 80 MG chew tablet Commonly known as: Mylicon Take 1 (one) tablet by mouth 4 times daily as needed for Gas Pain tamsulosin 0.4 MG capsule Commonly known as: Flomax Take 1 (one) capsule by mouth once daily At the same time every day after a meal. Start taking on: October 29, 2022 * This list has 3 medication(s) that are the same as other medications prescribed for you. Read thedirections carefully, and ask your doctor or other care provider to review them with you. CHANGE how you take these medications carvedilol 6.25 MG tablet Commonly known as: Coreg Take 1 (one) tablet by mouth 2 times daily with morning and evening meal Hold for Heart rate < 60/min What changed: additional instructions gabapentin 100 MG capsule Commonly known as: Neurontin Take 2 (two) capsules by mouth 3 times daily What changed: when to take this CONTINUE taking these medications aspirin EC 81 MG tablet Commonly known as: Ecotrin brinzolamide-brimonidine 1-0.2 % ophthalmic suspension Commonly known as: Simbrinza cabergoline 0.5 MG tablet Commonly known as: Dostinex carboxymethylcellulose 1 % ophthalmic gel empagliflozin 25 MG tablet Commonly known as: Jardiance rosuvastatin 40 MG tablet Commonly known as: Crestor tiotropium 2.5 MCG/ACT inhaler Commonly known as: Spiriva Respimat vitamin D (ergocalciferol) 1.25 MG (38717 UT) capsule Commonly known as: Drisdol STOP taking these medications albuterol HFA 108 (90 Base) MCG/ACT inhaler Commonly known as: Proventil; Ventolin; Proair ezetimibe 10 MG tablet Commonly known as: Zetia fluticasone-salmeterol 100-50 MCG/ACT inhaler Commonly known as: Advair/Wixela lisinopril 10 MG tablet Commonly known as: Prinivil; Zestril Where to Get Your Medications Information about where to get these medications is not yet available Ask your nurse or doctor about these medications ?? acetaminophen 325 MG tablet ?? albuterol-ipratropium 0.5-2.5 (3) MG/3ML nebulizer solution ?? amLODIPine 10 MG tablet ?? bismuth subsalicylate 262 MG chew tablet ?? budesonide-formoterol 160-4.5 MCG/ACT inhaler ?? calcium carbonate 500 MG chew tablet ?? carvedilol 6.25 MG tablet ?? clopidogrel 75 MG tablet ?? gabapentin 100 MG capsule ?? glucose (Diabetic Use) 15 GM/32ML oral gel ?? glucose (Diabetic Use) oral liquid ?? glucose 4 G chew tablet ?? heparin 5000 UNIT/ML injection ?? insulin glargine pen ?? insulin lispro 100 UNIT/ML pen ?? lidocaine 5 % patch ?? losartan 50 MG tablet ?? melatonin 1 MG tablet ?? nicotine 21 MG/24HR patch ?? simethicone 80 MG chew tablet ?? tamsulosin 0.4 MG capsule Discharge Instructions -Plavix needs to be continued for 90 days total (started 10/20/22. EOT:01/18/23) -Coreg (Carvedilol) need to be with holding parameters (Hold for HR <60/min) -Encourage oral intake -Aspiration precautions ocean transportation intermediary BP goal <130/80 mm hg -PCP/Reconcilement Clerk after discharge for diabetes medications and continued disease management.?? Signed: Dana Avalos MD 10/28/2022 Time spent on discharge: 60 minutes. Time was spent on preparation of discharge records, prescriptions, counseling patient, working withsocial work and nursing, discussion with family. documented in this encounter Discharge Instructions * Discharge Instructions* Dana Avalos MD - 10/28/2022 11:44 AM CDT Brief Hospital Course: Pt initially presented to [facility] ER for peritonsillar abscess but in Erwas found to have neurodeficits so was transferred to [facility] ER. Imaging confirmed Acute on chronic RT MCA and SHEA strokes (Also showed rt ICA occlusion which was chronic). Pt got tPA in ER and was admitted to neuro ICU. Later extubated and transferred to floor. NGT feeding d/sylvia and patient taking thin liquids and pureed diet with aspiration precautions. Finishing ~50% of his meals. Note pt finished course of Unasyn for peritonsillar abscess. Also was noticed to have asymptomatic bradycardia (/first degree av block).His coreg is held for HR <60/min.Now transferred to rehab for continuationof pt/ot. -Plavix needs to be continued for 90 days total (started 10/20/22. EOT:01/18/23) -Coreg (Carvedilol) need to be with holding parameters (Hold for HR <60/min) -Encourage oral intake -Aspiration precautions -care home BP goal <130/80 mm hg -PCP/Reconcilement Clerk after discharge for diabetes medications and continued disease management. documented in this encounter Medications at Time of Discharge [...] CQ) 21 MG/24HR patchIndications:Left- sided weakness,Ischemic stroke (HCC),Dysphagia, unspecified type,Bradycardia,Carot id occlusion, right,Coronary artery disease involving hopland coronary artery of hopland heart without angina pectoris,JAMES (obstructive sleep apnea),Chronic obstructive pulmonary disease, unspecified COPD type ([facility]),Type 2 diabetes mellitus with stage 2 chronic kidney disease, with long-term current use of insulin ([facility]),Smoker,Carotid stenosis, left Apply 1 (one) [...] daily vitamin D, ergocalciferol, (Drisdol) 1.25 MG (99994 UT) capsule Take 1 (one) capsule by mouth every 7 days documented as of this encounter Progress Notes * Ariella Montes RN - 10/28/2022 8:35 PM CDT Patient discharged to rehab. Iv removed, vitals stable. Report called to facility by roopa MARCIAL. Patient sent with belongings and discharge packet given to EMS * Kitty Mccord MSW - 10/28/2022 3:36 PM CDT Facility Transfer Note Level of Care: Actual level of care at discharge: Acute Rehab Facility Facility Name: (include name of person confirming admission): [facility] Made Aware of Special Needs (if applicable): Yes RN Call Report to:[phone] room 319-2 Fax D/C Orders to:[phone] Transportation (company and number): [employer]- TRIP#: [id number] Certificate of Medical Necessity rationale: Completed Date/time of transfer: 10/28/2022 @1900 Accepting MD and contact #: Dr. Garibay Completed and Signed [id number] (if applicable): N/A Family/Other Notified of Transfer (name/phone): Extended Emergency Contact Information Primary Emergency Contact: Clarita Guaman Relation: Mother Secondary Emergency Contact: Nichelle Varghese Relation: Sister Authorization Skilled Care: [facility] Rehab has auth# Authorization for Transportation: TRIP#: [id number] Verified Qualifying Stay(Skilled Only): YES Comments: SW spoke to pt and Clarita Guaman (Mother) [phone] to discuss discharge and they are in agreement with plans. SW is also in communication with Ananya with [facility] Re[facility] and she confirmed that patient has been accepted and they are ready to admit today. NOHEMI Curiel [phone] * Marina Pagan SN - 10/28/2022 12:49 PM CDT Problem: Tobacco Use Goal: Inpatient tobacco-use cessation counseling participation 10/28/2022 1249 by Marina Pagan SN Outcome: Progressing 10/28/2022 1150 by Marina Pagan SN Outcome: Progressing Problem: Pain/Discomfort Goal: Patient exhibits reduced pain/discomfort as evidenced by pain scores 10/28/2022 1249 by Marina Pagan SN Outcome: Progressing 10/28/2022 1150 by Marina Pagan SN Outcome: Progressing Goal: Patient uses pharmacological and non-pharmacological pain management strategies. 10/28/2022 1249 by Marina Pagan SN Outcome: Progressing 10/28/2022 1150 by Marina Pagan SN Outcome: Progressing Goal: Patient verbalizes acceptable level of pain relief and ability to engage in desired activity. 10/28/2022 1249 by Marina Pagan SN Outcome: Progressing 10/28/2022 1150 by Marina Pagan SN Outcome: Progressing Problem: Neurological Deficit Goal: Neurological status is stable or improving 10/28/2022 1249 by Marina Pagan SN Outcome: Progressing 10/28/2022 1150 by Marina Pagan SN Outcome: Progressing Problem: Hemodynamic Status/Cardiac Output Goal: Patient has stable vital signs and fluid balance 10/28/2022 1249 by Marina Pagan SN Outcome: Progressing 10/28/2022 1150 by Marina Pagan SN Outcome: Progressing Problem: Oxygenation/Respiratory Function Goal: Respiratory rate/effort will be within specified limits 10/28/2022 1249 by Marina Pagan SN Outcome: Progressing 10/28/2022 1150 by Marina Pagan SN Outcome: Progressing Problem: Mobility Goal: Patient's mobility/activity will be maintained as optimum level for age, diagnosis and physical limitations 10/28/2022 1249 by Marina Pagan SN Outcome: Progressing 10/28/2022 1150 by Marina Pagan SN Outcome: Progressing Goal: Continuum of care needs are further met through referral to outpatient services when appropriate. 10/28/2022 1249 by Marina Pagan SN Outcome: Progressing 10/28/2022 1150 by Marina Pagan SN Outcome: Progressing Goal: Patient reports the ability to perform Activities of Daily Living. 10/28/2022 1249 by Marina Pagan SN Outcome: Progressing 10/28/2022 1150 by Marina Pagan SN Outcome: Progressing Problem: Communication Impairment/Dysarthria Goal: Ability to express needs and understand communication 10/28/2022 1249 by Marina Pagan SN Outcome: Progressing 10/28/2022 1150 by Marina Pagan SN Outcome: Progressing Problem: Nutrition Goal: Nutritional status is improving 10/28/2022 1249 by Marina Pagan SN Outcome: Progressing 10/28/2022 1150 by Marina Pagan SN Outcome: Progressing Problem: Aspiration Precautions Goal: Patient's risk of aspiration is minimized 10/28/2022 1249 by Marina Pagan SN Outcome: Progressing 10/28/2022 1150 by Marina Pagan SN Outcome: Progressing Problem: Glycemic Control Goal: Clinical indication of glycemia balance is achieved 10/28/2022 1249 by Marina Pagan SN Outcome: Progressing 10/28/2022 1150 by Marina Pagan SN Outcome: Progressing Problem: Knowledge Deficit,Education,Discharge Plan Goal: The patient/family will understand cerebrovascular disease and its symptoms, treatment and management 10/28/2022 1249 by Marina Pagan SN Outcome: Progressing 10/28/2022 1150 by Marina Pagan SN Outcome: Progressing Problem: Skin Integrity Goal: Skin integrity is maintained or improved 10/28/2022 1249 by Marina Pagan SN Outcome: Progressing 10/28/2022 1150 by Marina Pagan SN Outcome: Progressing Problem: Fall Risk Goal: Fall risk and fall related injury risk are minimized (interventions related to the fall risk can be found in the flowsheet documentation) 10/28/2022 1249 by Marina Pagan SN Outcome: Progressing 10/28/2022 1150 by Marina Pagan SN Outcome: Progressing Problem: Nutrient: Inadequate protein-energy intake Goal: Total intake will meet estimated nutrient needs 10/28/2022 1249 by Marina Pagan SN Outcome: Progressing 10/28/2022 1150 by Marina Pagan SN Outcome: Progressing Problem: Transfers Goal: STG - Patient will transfer sit to and from stand 10/28/2022 1249 by Marina Pagan SN Outcome: Progressing 10/28/2022 1150 by Marina Pagan SN Outcome: Progressing Problem: Balance Goal: LTG - Patient will demonstrate Intervention to enhance balance for safe completion of daily activities 10/28/2022 1249 by Marina Pagan SN Outcome: Progressing 10/28/2022 1150 by Marina Pagan SN Outcome: Progressing Problem: Swallowing Goal: LTG - Patient will tolerate the least restrictive diet consistency to allow for safe consumption of daily meals 10/28/2022 1249 by Marina Pagan SN Outcome: Progressing 10/28/2022 1150 by Marina Pagan SN Outcome: Progressing pt discharging * Chana [place] OT - 10/28/2022 12:23 PM CDT [facility] Occupational Therapy Progress Note Patient: Esperanza Chaparro Med Record Number: [id number] Date of : 1955 Age: [age] year old Co-tx with PT due to need for increased skilled assist Recommendations: Discharge OT Discharge Recommendations: Patient would benefit from multidisciplinary therapy OT Discharge Recommendations: Patient would benefit from intensive 3-hour multidisciplinary therapy This recommendation is made due to ongoing OT functional needs: address functional deficits;patientto return to prior level of care;patient is motivated and actively participating in therapy;patienthas ability to improve with skilled therapy intervention This recommendation is made due to ongoing intensive OT functional needs: patient demonstrates a significant functional decline and would benefit from skilled therapy intervention to restore function Nurse and Physical Therapy contacted regarding patient status and/or discharge plan. Activity Level: as tolerated SUBJECTIVE: Pt agrees to participate in therapy. Pain Assessment: Pain Location #1 Pain Location : Shoulder (did not rate) Pain Orientation: Left OBJECTIVE: At start of therapy session, patient found in bed and with bed alarm on General Appearance: 67 yo male resting in bed, NAD Vitals: (*Assess the 3 levels of oxygen saturations both for room air and 02 unless rest on room air is 88% or less). Rest BP: HR: Sp02 Sp02 Room Air L O2 Ex/Gait/Activity Without 02 BP: 128/72 sitting HR: Sp02 Room Air Ex/Gait/Activity With 02 BP: HR: Sp02 L O2 Post Activity BP: HR: Sp02 Sp02 L O2 Room Air Mental Status/Cognition: Level of Consciousness-Adult: Alert Orientation Level: Oriented X4 Cognition: Follows one step commands;Judgement-decreased;Safety awareness-decreased;Impulsive;Attention/concentration-decreased (easily distracted with conversation) Mobility: a gait belt and non-slip socks were used for all out of bed activity this date. Bed Mobility: Supine to Sit: Maximum Assistance;X 2;Requires Physical Cues for Technique;Requires Verbal Cues forTechnique;Requires Physical Cues for Safety;Requires Verbal Cues for Safety Sit to Supine: Maximum Assistance;Requires Physical Cues for Safety;Requires Verbal Cues for Safety;Requires Verbal Cues for Technique;Requires Physical Cues for Technique Transfers: Sit to Stand: Maximum Assistance;X 2;Requires Verbal Cues for Safety;Requires Physical Cues for Safety;Requires Verbal Cues for Technique;Requires Physical Cues for Technique (pt achieves partial stance from EOB; unable to fully extend LEs or trunk, however displays good effort; requries L LE knee block) Stand to Sit: Maximum Assistance;X 2;Requires Verbal Cues for Safety;Requires Physical Cues for Safety;Requires Verbal Cues for Technique;Requires Physical Cues for Technique Transfer Device: Gait belt Balance: Sitting - Static: Poor + (requires mod to min assist for static sitting balance; strongly pushes tothe R; max cues provided to increase lean to the L, pt initiates attempt with fair consistency) Sitting - Dynamic: Poor Activities of Daily Living: Feeding: Set-up (eats from tray positioned in high fowlers; able to feed self yogurt utilizing spoon with R UE) Lower Body Dressing: Total Assistance (don socks) ACTIVITY TOLERANCE: Patient's activity tolerance: fair. Modified [place]: Current Modified Rohan Score: 5 AM-PAC 6 Clicks Daily Activity Raw Score:: 12 TREATMENT/INTERVENTIONS: ADL training Cognitive retraining Functional transfer training Endurance training Bed mobility Safety awareness EDUCATION: While performing OT, Patient was instructed in:functional mobility training, self-care training, cognitive retraining, safety awareness/fall precautions , use of call light Presented to patient who demonstrates Fair understanding of instructions given. INFORMED CONSENT TO TREATMENT: Plan of care including recommended therapy, goals and frequency, discussed with patient who understands and agrees to proceed. ASSESSMENT: Functional performance limited due to: limited activities of daily living, pain, decreased functional mobility, decreased functional balance, decreased cognition , decreased safety awareness, upper extremity functional impairments, decreased endurance and activity tolerance, decreased coordination and decreased visual motor skills. Patient continues to benefit from skilled Occupational Therapy to achieve the following functional goals. Short Term Goals: Goal Formation?With patient Cognition:?2 step commands and 100% of the time Patient will increase orientation to?time and situation Patient will perform grooming??at edge of bed and with moderate assist Patient will transfer to bedside commode??with moderate assist and X 2 Prison Goal(s): Patient to discharge to appropriate next level of inpatient care Plan: Patient continues to benefit from skilled therapy services., Continue with goals as established. If patient is discharged from the facility, this note serves as a discharge summary if further occupational therapy visits did not occur. Refer to filed flowsheet for further details. Following therapy session, patient left in bed, with bed alarm on , with call light within reach, with RN aware. * Marina Pagan SN - 10/28/2022 11:50 AM CDT Problem: Tobacco Use Goal: Inpatient tobacco-use cessation counseling participation Outcome: Progressing Problem: Pain/Discomfort Goal: Patient exhibits reduced pain/discomfort as evidenced by pain scores Outcome: Progressing Goal: Patient uses pharmacological and non-pharmacological pain management strategies. Outcome: Progressing Goal: Patient verbalizes acceptable level of pain relief and ability to engage in desired activity. Outcome: Progressing Problem: Neurological Deficit Goal: Neurological status is stable or improving Outcome: Progressing Problem: Hemodynamic Status/Cardiac Output Goal: Patient has stable vital signs and fluid balance Outcome: Progressing Problem: Oxygenation/Respiratory Function Goal: Respiratory rate/effort will be within specified limits Outcome: Progressing Problem: Mobility Goal: Patient's mobility/activity will be maintained as optimum level for age, diagnosis and physical limitations Outcome: Progressing Goal: Continuum of care needs are further met through referral to outpatient services when appropriate. Outcome: Progressing Goal: Patient reports the ability to perform Activities of Daily Living. Outcome: Progressing Problem: Communication Impairment/Dysarthria Goal: Ability to express needs and understand communication Outcome: Progressing Problem: Nutrition Goal: Nutritional status is improving Outcome: Progressing Problem: Aspiration Precautions Goal: Patient's risk of aspiration is minimized Outcome: Progressing Problem: Glycemic Control Goal: Clinical indication of glycemia balance is achieved Outcome: Progressing Problem: Knowledge Deficit,Education,Discharge Plan Goal: The patient/family will understand cerebrovascular disease and its symptoms, treatment and management Outcome: Progressing Problem: Skin Integrity Goal: Skin integrity is maintained or improved Outcome: Progressing Problem: Fall Risk Goal: Fall risk and fall related injury risk are minimized (interventions related to the fall risk can be found in the flowsheet documentation) Outcome: Progressing Problem: Nutrient: Inadequate protein-energy intake Goal: Total intake will meet estimated nutrient needs Outcome: Progressing Problem: Transfers Goal: STG - Patient will transfer sit to and from stand Outcome: Progressing Problem: Balance Goal: LTG - Patient will demonstrate Intervention to enhance balance for safe completion of daily activities Outcome: Progressing Problem: Swallowing Goal: LTG - Patient will tolerate the least restrictive diet consistency to allow for safe consumption of daily meals Outcome: Progressing Will continue to monitor VS & labs patient will most likely discharge today * Ananya Art RN - 10/28/2022 11:03 AM CDT [facility] Rehab has accepted this patient and he is in agreement to be transfered to acute rehab on the [facility] room 319-2. Met patient at bedside and updated him about transfer. Accepting physician is Dr. Garibay. May fax discharge orders to [phone]. May call report to [phone]. If needed, Sales And Leasing Consultant can be reached at [phone]. Thank you for the referral. Ananya Art RN, BSN Clinical Liaison [facility] [phone] * Jigna Mckeon PT - 10/28/2022 9:55 AM CDT [facility] Physical Therapy Progress Note Patient: Esperanza Chaparro Med Record Number: [id number] Date of : 1955 Age: [age] year old PPE worn by staff: gloves;mask - procedural PPE worn by patient: socks - clean;gown - patient, clean Tech: co-tx with OT Recommendations: Discharge PT Discharge Recommendations: Patient would benefit from multidisciplinary therapy SUBJECTIVE: Subjective: Patient agreeable to participate Pain Assessment: PRECAUTIONS: Weight Bearing Status: (no restrictions) Activity Level: Activity as Tolerated OBJECTIVE: At start of therapy session, patient found in bed and with bed alarm on General Appearance: 67 yo M, L side flaccid LDAs: IV's: Peripheral line Vitals: (*Assess the 3 levels of oxygen saturations both for room air and 02 unless rest on room air is 88% or less). Rest BP: HR: Sp02 Sp02 Room Air L O2 Ex/Gait/Activity Without 02 BP: HR: Sp02 Room Air Ex/Gait/Activity With 02 BP: HR: Sp02 L O2 Post Activity BP: HR: Sp02 Sp02 Room Air L O2 Observations: no SOB, see OT note for BP Mental Status/Cognition: Level of Consciousness-Adult: Alert;Eyes Open Spontaneously Orientation Level: Oriented X4 Mobility: A gait belt and non-slip socks were used for all out of bed activity this date. Bed Mobility: Supine to Sit: Maximum Assistance;X 2 with HOB in semi-fowlers position Sit to Supine: Maximum Assistance;X 2 Transfers: Sit to Stand: Maximum Assistance;X 2 (partial stand, cleared buttocks) Stand to Sit: Maximum Assistance;X 2 Transfer Device: Gait belt Gait: Weight Bearing Status: (no restrictions) Distance Ambulated: 0 FEET Ambulation: Assistive Device: Gait Belt Ambulation: Level of Assistance: Maximum Assistance;X 2 Ambulation: Gait Deviations: Assist to Block Left Knee;Assist to Block Right Knee Comments: partial stand Balance: Balance Scales/Tests Used: Sitting: Static/Dynamic Sitting - Static: Poor + (requires mod to min assist for static sitting balance; strongly pushes tothe R; max cues provided to increased lean to the L, pt initiates attempt with fair consistency) ACTIVITY TOLERANCE: Patient's activity tolerance: fair. TREATMENT/INTERVENTIONS: bed mobility training, transfer training, gait training, balance activities and monitoring of vitals Modified Caribou: Current Modified Caribou Score: 5 AM-PAC 6 Clicks Mobility Raw Score:: 9 EDUCATION: While performing PT, Patient was instructed in:safety awareness/fall precautions , use of adaptive equipment, discharge planning Presented to patient who demonstrates Fair understanding of instructions given. ASSESSMENT: Patient would benefit from additional Physical Therapy sessions to achieve the following functionalgoals to enhance independence. Short Term Goals:?? Patient will perform bed mobility??with maximal assist and X 1 Patient will transfer sit to/from stand??with moderate assist and X 2 Patient will transfer bed to/from chair??with moderate assist and X 2 Patient will demonstrate sitting balance of Poor plus x 10 minutes ?? Etl Bi Developer Goal(s): Patient to discharge to appropriate next level of inpatient care. INFORMED CONSENT TO TREATMENT: Plan of care including recommended therapy, goals and frequency, discussed with patient who understands and agrees to proceed. Equipment Issued: gait belt Plan: Patient continues to benefit from skilled therapy services., Continue with goals as established. If patient is discharged from the facility, this note serves as a discharge summary if further physical therapy visits did not occur. Refer to filed flowsheet for further details. Following therapy session, patient left in bed, with call light within reach. * Anne Marie Beebe RN - 10/27/2022 11:39 PM CDT Problem: Neurological Deficit Goal: Neurological status is stable or improving Outcome: Progressing Problem: Communication Impairment/Dysarthria Goal: Ability to express needs and understand communication Outcome: Progressing * Kitty Mccord MSW - 10/27/2022 5:44 PM CDT Social Work Progress Note [facility] Rehab received auth for patient, pending medical stability and PT/OT notes on tomorrow. Possible discharge on tomorrow. SW will continue to follow up. Discharge Plan Disposition: [facility] Rehab Transportation (if ambulance rationale): Transportation at discharge: (to be determined) Anticipated Discharge Date: Anticipated Discharge Date: 10/31/22 ([facility]ending [facility]) Contacts: Extended Emergency Contact Information Primary Emergency Contact: Clarita Guaman Relation: Mother Secondary Emergency Contact: Nichelle Varghese Relation: Sister Have they been contacted? Name/Phone number: NOHEMI Curiel [phone] * Britney Cisse SLP - 10/27/2022 3:33 PM CDT [facility] Swallow Treatment Patient: Esperanza Chaparro Med Record Number: [id number] Date of : 1955 Age: [age] year old PPE: gloves Impressions: Pt agreeable to trials of cracker but continues to demonstrate prolonged mastication and occasional left-side pocketing. Pt also impulsive w/ self-feeding and demonstrates poor awarenessof oral residue. No s/s aspiration for thin liquids. Would recommend pt continue his current diet w/ strict adherence to swallow guidelines. ST will follow to ensure diet tolerance and advance as appropriate. Recommendations: Diet Liquids Recommendation: Thin/ Thin (0) Diet Solids Recommendation: Advanced Soft Dys 3/Soft & Bite Sized (6) Recommended Form of Meds: As Tolerated Compensatory Swallowing Strategies: 90 Degrees elevation for all oral intake;Full supervision with meals;Alternate solids and liquids;Small bites/sips;Eat/Feed slowly;Tongue sweep to clear oral;Feed patient only when alert Recommended Tests/Consults: None, pt w/ recent MBS results ?? Discharge Recommendations: Patient would benefit from intensive 3-hour multidisciplinary therapy Speech therapy is recommended to improve swallow function. ?? SUBJECTIVE: Patient Goals: None stated ?? Pain Assessment: Pain Location #1 Pain Scale/Observation: Numeric (0-10) Pain Rating Score #1: 0 Sedation Level #1: 1-Awake and alert ?? OBJECTIVE: Level of Consciousness: alert, impulsive Orientation Level: oriented x 4 ?? Positioning: Upright in bed ?? Respiratory Status: room air ?? Swallow Trials: Thin Liquid: Presentation: Cup-Self Fed Oral: Within Functional Limits Pharyngeal: (No s/s aspiration); Solids: Presentation: Self Fed Oral: Pocketing Left ;Increased Anterior to Posterior Transit;Requires verbal cueing to use a liquid wash to clear oral residue Pharyngeal: (No s/s aspiration); Assessment: Risk For Aspiration: Mild Primary Diagnostic Impression - Oral: Mild Primary Diagnostic Impression - Pharyngeal: Mild (Per MBS results) Treatment/Education/Interventions: While performing CHEMISTRY PHYSICS TEACHER, Patient was instructed in: goals of treatment , diet/liquid recommendations, swallowing strategies/aspiration precautions and clinical signs of aspiration . Pt also participatedin OM exercise for improved labial and lingual strength and ROM to facilitate improved bolus clearance and mastication. Patient demonstrated Fair understanding of instructions given. INFORMED CONSENT TO TREATMENT: Plan of care including recommended therapy, goals and frequency, discussed with patient who understands and agrees to proceed. Short Term Goals Patient will tolerate recommended food and liquid consistencies without clinical signs of aspiration. Patient will understand clinical signs of aspiration and aspiration precautions. Patient will follow recommended swallowing strategies. Patient will demonstrate an improvement in oropharyngeal swallow function to warrant diet upgrade. Prison Goal (s): Patient to be independent/baseline with functional mobility and self care and be able to safely discharge to prior level of care. Plan: Dysphagia Therapy for ongoing assessment, OMEX If patient is discharged from the facility, this note serves as a discharge note if further speech therapy visits did not occur. Speech Language Pathologist * Fredis Samuels RN - 10/27/2022 1:16 PM CDT Care Coordination Progress Note Anticipated level of care at discharge: Acute Rehab Facility Discharge Plan: Will likely discharge to Acute Rehab when medically ready. Referrals were placed bySW. Refer to SW notes for further details. READMISSION RISK SCORE is 17 at 1:16 PM 10/27/2022. Anticipated Discharge Date: 10/31/22 (Pending [place]) Patient/Family provided with list of resources? Unknown Preferred Provider / High Quality Network List given?: Unknown Reason for provider choice: Pt. choice - Pt. choice, Insurance Family Support (Name and Phone): Extended Emergency Contact Information Primary Emergency Contact: Clarita Guaman Relation: Mother Secondary Emergency Contact: Nichelle Varghese Relation: Sister Patient is alert & orientated or has capacity for decision making: If No , Legal or Designated Decision Maker: Transportation at Discharge: (to be determined) Equipment at Home: Equipment at Home: Walker-4 Wheeled with Seat List DME patient requires but does not have: DME Provider: Medication affordability concerns: Follow Up Appointment: Transportation to MD: Auth Number (if required): [place]: DME: Medications: Transportation: Name: Fredis Samuels RN Phone: [phone] * Dave Frias RN - 10/27/2022 12:08 PM CDT Problem: Tobacco Use Goal: Inpatient tobacco-use cessation counseling participation Outcome: Progressing Problem: Pain/Discomfort Goal: Patient exhibits reduced pain/discomfort as evidenced by pain scores Outcome: Progressing Goal: Patient uses pharmacological and non-pharmacological pain management strategies. Outcome: Progressing Goal: Patient verbalizes acceptable level of pain relief and ability to engage in desired activity. Outcome: Progressing Problem: Neurological Deficit Goal: Neurological status is stable or improving Outcome: Progressing Problem: Hemodynamic Status/Cardiac Output Goal: Patient has stable vital signs and fluid balance Outcome: Progressing Problem: Oxygenation/Respiratory Function Goal: Respiratory rate/effort will be within specified limits Outcome: Progressing Problem: Mobility Goal: Patient's mobility/activity will be maintained as optimum level for age, diagnosis and physical limitations Outcome: Progressing Goal: Continuum of care needs are further met through referral to outpatient services when appropriate. Outcome: Progressing Goal: Patient reports the ability to perform Activities of Daily Living. Outcome: Progressing Problem: Communication Impairment/Dysarthria Goal: Ability to express needs and understand communication Outcome: Progressing Problem: Nutrition Goal: Nutritional status is improving Outcome: Progressing Problem: Aspiration Precautions Goal: Patient's risk of aspiration is minimized Outcome: Progressing Problem: Glycemic Control Goal: Clinical indication of glycemia balance is achieved Outcome: Progressing Problem: Knowledge Deficit,Education,Discharge Plan Goal: The patient/family will understand cerebrovascular disease and its symptoms, treatment and management Outcome: Progressing Problem: Skin Integrity Goal: Skin integrity is maintained or improved Outcome: Progressing Problem: Fall Risk Goal: Fall risk and fall related injury risk are minimized (interventions related to the fall risk can be found in the flowsheet documentation) Outcome: Progressing Problem: Nutrient: Inadequate protein-energy intake Goal: Total intake will meet estimated nutrient needs Outcome: Progressing Problem: Transfers Goal: STG - Patient will transfer sit to and from stand Outcome: Progressing Problem: Balance Goal: LTG - Patient will demonstrate Intervention to enhance balance for safe completion of daily activities Outcome: Progressing Problem: Swallowing Goal: LTG - Patient will tolerate the least restrictive diet consistency to allow for safe consumption of daily meals Outcome: Progressing * Palma Rocha MD - 10/27/2022 9:49 AM CDT Hospitalist Progress Note Hospital Course: Esperanza Chaparro??is a 67 yo M with CAD, COPD , hypertension, diabetes, sleep apnea, colon cancer s/p colectomy??admitted for??sudden onset left-sided face arm and leg weakness on 10/12. MRI confirmed acute right MCA and SHEA cortical infarcts.??Received??tPA. ??He developed respiratory failure requiring intubation. ??Able to be successfully extubated on 10/15.??He was also treated for a peritonsillar abscess s/p Unasyn course. Transferred to floor on 10/17.??Initially meds and feeds for through NG tube but cleared for oral dysphagia diet on 10/19. ??He has been doing well with thin liquids and purees. ??Transferred to medicine team for further management of post stroke care and rehab placement. Subjective: Patient sitting up eating breakfast on evaluation, he reports ongoing left shoulder pain and is asking for morphine. Otherwise denies any fevers/chills, chest pain, shortness a breath. Objective: Blood pressure 121/54, pulse 51, temperature 98.2 ??F (36.8 ??C), temperature source Oral, resp. rate 18, height 1.803 m (5' 11 ), weight 103.6 kg (228 lb 4.8 oz), SpO2 95 %. Gen: NAD HEENT: NCAT RESP: Clear to auscultation CV: Nl S1 and S2 GI: Soft and non tender. +BS EXT: No edema. NEURO: Appropriately interactive. Left hemiplegia MAR reviewed Assessment/Plan: Assessment: Esperanza Chaparro is a 67 year old male who presented with acute R MCA and SHEA stroke. ?? Plan: #??acute ischemic stroke??with residual L sided hemiplegia -??continue stroke protocol, PT OT efforts -??risk factor modification??-??aspirin, Plavix 90 days, statin -??long-term goal blood pressure less than 130/80 - will start gabapentin for neuropathy, 200 mg t.i.d., scheduled Tylenol ?? #??dysphagia secondary to stroke -??CHEMISTRY PHYSICS TEACHER following. Appreciate dietary recs. ?? # DMII - basal + bolus insulin, titrate as needed - resume SGLT2i Jardiance, increase to 25 mg daily on discharge ?? # HTN -??continue??amlodipine and losartan - monitor creatinine on next lab draw. - titrate as needed ?? #CAD s/p PCI - continue ASA, statin - beta alec held 2/2 bradycardia, continue to hold with HR 51 this morning ?? #??COPD not in acute??exacerbation - resume home inhalers, duonebs prn ?? # Sinus Bradycardia - home Coreg held - asymptomatic. Continue to monitor. Remains on tele. ?? # diarrhea - chronic per patient, Imodium PRN ?? # Peritonsillar abscess, resolved, s/p Unasyn treatment complete 10/19 ?? Diet: modified consistency. Speech therapy following. Appreciate recs. DVT PPx:?Heparin Code Status:?Full Disposition: Needs inpatient rehab on discharge through [facility], process started by case management. Palma Rocha MD [facility] Medicine 10/27/2022 * Anne Marie Beebe RN - 10/26/2022 10:15 PM CDT Problem: Pain/Discomfort Goal: Patient exhibits reduced pain/discomfort as evidenced by pain scores Outcome: Progressing Problem: Fall Risk Goal: Fall risk and fall related injury risk are minimized (interventions related to the fall risk can be found in the flowsheet documentation) Outcome: Progressing * Kristi Trivedi OT - 10/26/2022 3:23 PM CDT [facility] Occupational Therapy Progress Note Patient: Esperanza Chaparro Med Record Number: [id number] Date of : 1955 Age: [age] year old PPE worn by staff: gloves;mask - procedural PPE worn by patient: gown - patient, clean Cotx w/ PT 2/2 anticipated level of skilled assist Recommendations: Discharge OT Discharge Recommendations: Patient would benefit from multidisciplinary therapy This recommendation is made due to ongoing OT functional needs: patient has ability to improve withskilled therapy intervention;address functional deficits Recommended Transportation Method: Stretcher/Ambulance Nurse and Physical Therapy contacted regarding patient status and/or discharge plan. Activity Level: as tolerated PRECAUTIONS: Weight Bearing Status: (WBAT x4) Medical/Surgical Precaution: (fall precautions) SUBJECTIVE: Subjective: Pt agreeable to therapy Pain Assessment: Pain Location #1 Pain Scale/Observation: Numeric (0-10) Pain Rating Score #1: 9 (headache) Sedation Level #1: 1-Awake and alert Pain Location : Head;Neck;Shoulder Pain Orientation: Left Pain Quality: Burning;Aching;Throbbing Pain Intervention(s): Non-pharmacological Non-pharmacological interventions: Rest;Reposition Behaviors/Assumed Pain Present : Calm OBJECTIVE: At start of therapy session, patient found in bed General Appearance: 67 y/o male received in NAD LDA: IV's: Peripheral line Mental Status/Cognition: Level of Consciousness-Adult: Alert Orientation Level: Oriented X4 Cognition: Follows Commands-Consistent;Attention/concentration-decreased;Processing-delayed Attention Span: Attends with cues to redirect Memory: Decreased recall of recent events Following Commands: Follows one step commands with increased time Safety Judgement: Decreased awareness of need for safety Awareness of Errors: Decreased awareness of deficits Problem Solving: Assistance required to generate solutions;Assistance required to identify errors made;Assistance required to implement solutions Mobility: a gait belt and non-slip socks were used for all out of bed activity this date. Bed Mobility: Rolling: Maximal Assistance to Right;Maximal Assistance to Left Supine to Sit: Maximum Assistance;X 2;Requires Verbal Cues for Technique;Requires Physical Cues forTechnique with HOB in semi-fowlers position Sit to Supine: Total Assistance;X 2 Transfers: Sit to Stand: Activity Does Not Occur (deferred 2/2 decreased sitting balance) Stand to Sit: Activity Does Not Occur Functional Ambulation: Comments: NT Balance: Balance Scales/Tests Used: Sitting: Static/Dynamic Sitting - Static: Poor +;With One Upper Extremity Support Sitting - Dynamic: Poor +;With One Upper Extremity Support (able to pull himself forward with min to mod assist; decreased endurance) Activities of Daily Living: Feeding: Other (Comment) (pt brings cup to mouth seated EOB with moderate- maximal assist for sitting balance) Oral Facial Hygiene: Stand By Assist (wipe food residue from face with cues for thoroughness of task) Bathing: Activity Does Not Occur Upper Body Dressing: Activity Does Not Occur Lower Body Dressing: Total Assistance Toileting: Activity Does Not Occur Splint Issued/Checked: none ACTIVITY TOLERANCE: Patient's activity tolerance: fair. Modified Caribou: Current Modified Caribou Score: 5 AM-PAC 6 Clicks Daily Activity Raw Score:: 10 ?? TREATMENT/INTERVENTIONS: ADL training Functional transfer training Endurance training Bed mobility HEP training trunk/head control, postural corrections, UE positioning, weightshifting EOB* ?? EDUCATION: While performing OT, Patient was instructed in:functional mobility training, self-care training, safety awareness/fall precautions , home exercise program, edema management, stroke education and precautions, use of call light ?? Presented to patient who demonstrates Fair understanding of instructions given. ?? INFORMED CONSENT TO TREATMENT: Plan of care including recommended therapy, goals and frequency, discussed with patient who understands and agrees to proceed. ?? ASSESSMENT: Patient continues to benefit from skilled Occupational Therapy to achieve the following functional goals. ?? Short Term Goals: Goal Formation?With patient Cognition:?2 step commands and 100% of the time Patient will increase orientation to?time and situation Patient will perform grooming??at edge of bed and with moderate assist Patient will transfer to bedside commode??with moderate assist and X 2 ?? Etl Bi Developer Goal(s): Patient to discharge to appropriate next level of inpatient care ?? Plan: Patient continues to benefit from skilled therapy services., Continue with goals as established. ?? If patient is discharged from the facility, this note serves as a discharge summary if further occupational therapy visits did not occur. Refer to filed flowsheet for further details. Following therapy session, patient left in bed, with bed alarm on , with call light within reach. * Deonte Hyatt, PT - 10/26/2022 2:47 PM CDT [facility] Physical Medicine and Rehabilitation Physical Therapy Progress Note Patient: Esperanza Chaparro Med Record Number: [id number] Date of : 1955 Age: [age] year old PPE worn by staff: gloves;mask - procedural PPE worn by patient: gown - patient, clean Cotx with OT Recommendations: Discharge PT Discharge Recommendations: Patient would benefit from multidisciplinary therapy This recommendation is made due to ongoing PT functional needs: address functional deficits This recommendation is made due to ongoing intensive PT functional needs: patient has the need for more than one skilled therapy service;functional mobility is significantly below baseline;patient has the ability to progress and demonstrate measurable gains as a result of skilled therapy Recommended Transportation Method: Stretcher/Ambulance SUBJECTIVE: Subjective: Pt agreeable with therapy, pt reporting significant pain with previous repositioning with other staff, pt educated that it is important that he is repositioned to decrease risk of pressure injuries and that it will most likely not be comfortable during repositioning because of his pain being more aggravated Pt reports groin pain this date / therapist having hand resting on patella stating My groin hurts because you're pushing on my (L) knee , pt educated that minimal pressure was being used, pt reports decreased pain with slight L hip abduction Pain Assessment: Pain Location #1 Pain Scale/Observation: Numeric (0-10) Pain Rating Score #1: 9 (headache) Sedation Level #1: 1-Awake and alert Pain Location : Head;Neck;Shoulder Pain Orientation: Left Pain Quality: Burning;Aching;Throbbing Pain Intervention(s): Non-pharmacological Non-pharmacological interventions: Rest;Reposition Behaviors/Assumed Pain Present : Calm PRECAUTIONS: Weight Bearing Status: (no restrictions) Activity Level: Activity as Tolerated Other Precautions: L flaccid OBJECTIVE: At start of therapy session, patient found in bed and with bed alarm on General Appearance: 67 y/o male in high fowlers LDAs: Catheter Mental Status/Cognition: Level of Consciousness-Adult: Eyes Open Spontaneously Orientation Level: Oriented X4 Cognition: Follows Commands-Consistent;Attention/concentration-decreased;Processing-delayed Attention Span: Attends with cues to redirect Memory: Decreased recall of recent events Following Commands: Follows one step commands with increased time Safety Judgement: Decreased awareness of need for safety Awareness of Errors: Decreased awareness of deficits Mobility: A gait belt and non-slip socks were used for all out of bed activity this date. Bed Mobility: Rolling: Maximal Assistance to Right;Maximal Assistance to Left Supine to Sit: Maximum Assistance;X 2;Requires Verbal Cues for Technique;Requires Physical Cues forTechnique with HOB in semi-fowlers position Sit to Supine: Total Assistance;X 2 Transfers: Sit to Stand: Activity Does Not Occur Stand to Sit: Activity Does Not Occur Gait: Weight Bearing Status: (no restrictions) Distance Ambulated: 0 FEET Balance: Balance Scales/Tests Used: Sitting: Static/Dynamic Sitting - Static: Poor +;With One Upper Extremity Support Sitting - Dynamic: Poor +;With One Upper Extremity Support (able to pull himself forward with min to mod assist; decreased endurance) ACTIVITY TOLERANCE: Patient's activity tolerance: poor plus. TREATMENT/INTERVENTIONS: Supine to sit transfer training; rolling with use of RUE, pt requires frequent cueing to stay on task with using RUE as he will frequently put it back by his side and require further cueing; pulling himself forward with RUE, pt requires cueing to achieve full ROM and fatigues quickly; sitting tolerance at EOB Modified Caribou: Current Modified Caribou Score: 5 AM-PAC 6 Clicks Mobility Raw Score:: 8 EDUCATION: While performing PT, Patient was instructed in:functional mobility training, energy conservation, safety awareness/fall precautions Presented to patient who demonstrates Fair understanding of instructions given. ASSESSMENT: Patient would benefit from additional Physical Therapy sessions to achieve the following functionalgoals to enhance independence. Short Term Goals: Patient will perform bed mobility??with maximal assist and X 1 Patient will transfer sit to/from stand??with moderate assist and X 2 Patient will transfer bed to/from chair??with moderate assist and X 2 Patient will demonstrate sitting balance of Poor plus x 10 minutes ?? Prison Goal(s): Patient to discharge to appropriate next level of inpatient care. ?? INFORMED CONSENT TO TREATMENT: Plan of care including recommended therapy, goals and frequency, discussed with patient who understands and agrees to proceed. ?? Equipment Issued: none ?? Plan: Patient continues to benefit from skilled therapy services., Continue with goals as established. If patient is discharged from the facility, this note serves as a discharge summary if further physical therapy visits did not occur. Refer to filed flowsheet for further details. Following therapy session, patient left in bed, with bed alarm on , with call light within reach. * Britney Cisse SLP - 10/26/2022 1:24 PM CDT [facility] Physical Medicine and Rehabilitation Swallow Treatment Patient: Esperanza Chaparro Med Record Number: [id number] Date of : 1955 Age: [age] year old PPE: gloves Impressions: Pt requesting diet advance to regular solids but continues to demonstrate prolonged mastication and occasional left-side pocketing. Pt also presents w/ poor insight into deficits and requires frequent reminders as to the rationale for modified diet consistency. Cough appreciated X1 trial thin liquids, however numerous other trials were w/o overt s/s. Would recommend pt continue his current diet w/ strict adherence to swallow guidelines. ST will follow to ensure diet tolerance and advance as appropriate. Recommendations: Diet Liquids Recommendation: Thin/ Thin (0) Diet Solids Recommendation: Advanced Soft Dys 3/Soft & Bite Sized (6) Recommended Form of Meds: As Tolerated Compensatory Swallowing Strategies: 90 Degrees elevation for all oral intake;Full supervision with meals;Alternate solids and liquids;Small bites/sips;Eat/Feed slowly;Tongue sweep to clear oral;Feed patient only when alert Recommended Tests/Consults: None, pt w/ recent MBS results ?? Discharge Recommendations: Patient would benefit from intensive 3-hour multidisciplinary therapy Speech therapy is recommended to improve swallow function. ?? SUBJECTIVE: Patient Goals: To eat a cheeseburger and fries ?? Pain Assessment: Pain Location #1 Pain Scale/Observation: Numeric (0-10) Pain Rating Score #1: 0 Sedation Level #1: 1-Awake and alert ?? OBJECTIVE: Level of Consciousness: alert Orientation Level: oriented x 4 ?? Positioning: Upright in bed ?? Respiratory Status: room air ?? Swallow Trials: Thin Liquid: Presentation: Cup-Self Fed Oral: Within Functional Limits Pharyngeal: Cough X1 Puree: Presentation: Spoon-Self Fed Oral: Spillage Left;Increased Anterior to Posterior Transit (Mild left side pocketing) Pharyngeal: (No s/s aspiration); Ground Texture: Presentation: Spoon-Self Fed Oral: Spillage Left;Pocketing Left ;Increased Anterior to Posterior Transit Pharyngeal: (No s/s aspiration); Assessment: Risk For Aspiration: Mild Primary Diagnostic Impression - Oral: Mild Primary Diagnostic Impression - Pharyngeal: Mild (Per MBS results) Treatment/Education/Interventions: While performing CHEMISTRY PHYSICS TEACHER, Patient was instructed in: goals of treatment , diet/liquid recommendations, swallowing strategies/aspiration precautions and clinical signs of aspiration . Patient demonstrated Fair understanding of instructions given. INFORMED CONSENT TO TREATMENT: Plan of care including recommended therapy, goals and frequency, discussed with patient who understands and agrees to proceed. Short Term Goals Patient will tolerate recommended food and liquid consistencies without clinical signs of aspiration. Patient will understand clinical signs of aspiration and aspiration precautions. Patient will follow recommended swallowing strategies. Patient will demonstrate an improvement in oropharyngeal swallow function to warrant diet upgrade. Prison Goal (s): Patient to be independent/baseline with functional mobility and self care and be able to safely discharge to prior level of care. Plan: Dysphagia Therapy for ongoing assessment If patient is discharged from the facility, this note serves as a discharge note if further speech therapy visits did not occur. Speech Language Pathologist * Clari Worrell RN - 10/26/2022 12:07 PM CDT Problem: Tobacco Use Goal: Inpatient tobacco-use cessation counseling participation Outcome: Progressing Problem: Pain/Discomfort Goal: Patient exhibits reduced pain/discomfort as evidenced by pain scores Outcome: Progressing Goal: Patient uses pharmacological and non-pharmacological pain management strategies. Outcome: Progressing Goal: Patient verbalizes acceptable level of pain relief and ability to engage in desired activity. Outcome: Progressing Problem: Neurological Deficit Goal: Neurological status is stable or improving Outcome: Progressing Problem: Hemodynamic Status/Cardiac Output Goal: Patient has stable vital signs and fluid balance Outcome: Progressing Problem: Oxygenation/Respiratory Function Goal: Respiratory rate/effort will be within specified limits Outcome: Progressing Problem: Mobility Goal: Patient's mobility/activity will be maintained as optimum level for age, diagnosis and physical limitations Outcome: Progressing Goal: Continuum of care needs are further met through referral to outpatient services when appropriate. Outcome: Progressing Goal: Patient reports the ability to perform Activities of Daily Living. Outcome: Progressing Problem: Communication Impairment/Dysarthria Goal: Ability to express needs and understand communication Outcome: Progressing Problem: Nutrition Goal: Nutritional status is improving Outcome: Progressing Problem: Aspiration Precautions Goal: Patient's risk of aspiration is minimized Outcome: Progressing Problem: Glycemic Control Goal: Clinical indication of glycemia balance is achieved Outcome: Progressing Problem: Knowledge Deficit,Education,Discharge Plan Goal: The patient/family will understand cerebrovascular disease and its symptoms, treatment and management Outcome: Progressing Problem: Skin Integrity Goal: Skin integrity is maintained or improved Outcome: Progressing Problem: Fall Risk Goal: Fall risk and fall related injury risk are minimized (interventions related to the fall risk can be found in the flowsheet documentation) Outcome: Progressing Problem: Nutrient: Inadequate protein-energy intake Goal: Total intake will meet estimated nutrient needs Outcome: Progressing Problem: Transfers Goal: STG - Patient will transfer sit to and from stand Outcome: Progressing Problem: Balance Goal: LTG - Patient will demonstrate Intervention to enhance balance for safe completion of daily activities Outcome: Progressing * Kitty Mccord MSW - 10/26/2022 10:45 AM CDT Social Work Progress Note SW faxed updated clinical to [place] with [facility] Referral to [facility] Form. SW will continue to follow up. Discharge Plan Disposition:[facility] Transportation (if ambulance rationale): Transportation at discharge: (to be determined) Anticipated Discharge Date: Anticipated Discharge Date: 10/29/22 Contacts: Extended Emergency Contact Information Primary Emergency Contact: Clarita Guaman Relation: Mother Secondary Emergency Contact: HalimaNichelle Relation: Sister Have they been contacted? Name/Phone number: Kitty Goldfield CHUCKER [phone] * Francis Shepherd III, MD - 10/26/2022 9:41 AM CDT Internal Medicine Attending Note Hospital Day: 14 The current ASSESSMENT and PLAN for Esperanza Chaparro, a 67 year old year-old male is: - will have CHEMISTRY PHYSICS TEACHER reassess swallowing - continue current meds - bp controlled - check cmp in am (electrolytes and protein/albumin) Ischemic stroke (CMS/HCC) (POA: Yes) Carotid occlusion, right (POA: Yes) Carotid stenosis, left (POA: Yes) Weakness (POA: Unknown) Coronary artery disease (POA: No) JAMES (obstructive sleep apnea) (POA: Yes) COPD (chronic obstructive pulmonary disease) (CMS/HCC) (POA: Unknown) Stage 3 chronic kidney disease (CMS/HCC) (POA: Unknown) Peritonsillar abscess (POA: Yes) Dyspnea (POA: Yes) Respiratory acidosis (POA: Yes) Hx of completed stroke (POA: Yes) DM2 (diabetes mellitus, type 2) (CMS/HCC) (POA: Yes) Primary hypertension (POA: Yes) Smoker (POA: Yes) Diet: modified consistency Antibiotic end date:na Consults: na DVT prophylaxis: heparin Code status:full Disposition: rehab ([facility]) Subjective: no pain. Wants to have more solid food (asked specifically for a sandwich) Objective: Blood pressure 111/53, pulse 47, temperature 98.2 ??F (36.8 ??C), temperature source Oral, resp. rate 17, height 1.803 m (5' 11 ), weight 103.6 kg (228 lb 4.8 oz), SpO2 97 %. In nad Left hemiplegia RRR no m/g/r, S1 and S2 appreciated, no JVD Lungs CTA B/L MAR reviewed Relevant labs reviewed Relevant imaging reviewed Brief Hospital Course Francis Shepherd III, MD Professor, General Internal Medicine 10/26/2022 Feel free to text via [employer] or call [facility] for questions. * Ariella Montes RN - 10/25/2022 11:20 PM CDT Problem: Tobacco Use Goal: Inpatient tobacco-use cessation counseling participation Outcome: Progressing Problem: Pain/Discomfort Goal: Patient exhibits reduced pain/discomfort as evidenced by pain scores Outcome: Progressing Goal: Patient uses pharmacological and non-pharmacological pain management strategies. Outcome: Progressing Goal: Patient verbalizes acceptable level of pain relief and ability to engage in desired activity. Outcome: Progressing Problem: Neurological Deficit Goal: Neurological status is stable or improving Outcome: Progressing Problem: Hemodynamic Status/Cardiac Output Goal: Patient has stable vital signs and fluid balance Outcome: Progressing Problem: Communication Impairment/Dysarthria Goal: Ability to express needs and understand communication Outcome: Progressing Problem: Nutrition Goal: Nutritional status is improving Outcome: Progressing Problem: Aspiration Precautions Goal: Patient's risk of aspiration is minimized Outcome: Progressing Problem: Glycemic Control Goal: Clinical indication of glycemia balance is achieved Outcome: Progressing Problem: Skin Integrity Goal: Skin integrity is maintained or improved Outcome: Progressing Problem: Fall Risk Goal: Fall risk and fall related injury risk are minimized (interventions related to the fall risk can be found in the flowsheet documentation) Outcome: Progressing * Clari Worrell RN - 10/25/2022 3:45 PM CDT Problem: Tobacco Use Goal: Inpatient tobacco-use cessation counseling participation Outcome: Progressing Problem: Pain/Discomfort Goal: Patient exhibits reduced pain/discomfort as evidenced by pain scores Outcome: Progressing Goal: Patient uses pharmacological and non-pharmacological pain management strategies. Outcome: Progressing Goal: Patient verbalizes acceptable level of pain relief and ability to engage in desired activity. Outcome: Progressing Problem: Neurological Deficit Goal: Neurological status is stable or improving Outcome: Progressing Problem: Hemodynamic Status/Cardiac Output Goal: Patient has stable vital signs and fluid balance Outcome: Progressing Problem: Oxygenation/Respiratory Function Goal: Respiratory rate/effort will be within specified limits Outcome: Progressing Problem: Mobility Goal: Patient's mobility/activity will be maintained as optimum level for age, diagnosis and physical limitations Outcome: Progressing Goal: Continuum of care needs are further met through referral to outpatient services when appropriate. Outcome: Progressing Goal: Patient reports the ability to perform Activities of Daily Living. Outcome: Progressing Problem: Communication Impairment/Dysarthria Goal: Ability to express needs and understand communication Outcome: Progressing Problem: Nutrition Goal: Nutritional status is improving Outcome: Progressing Problem: Aspiration Precautions Goal: Patient's risk of aspiration is minimized Outcome: Progressing Problem: Glycemic Control Goal: Clinical indication of glycemia balance is achieved Outcome: Progressing Problem: Knowledge Deficit,Education,Discharge Plan Goal: The patient/family will understand cerebrovascular disease and its symptoms, treatment and management Outcome: Progressing Problem: Skin Integrity Goal: Skin integrity is maintained or improved Outcome: Progressing Problem: Fall Risk Goal: Fall risk and fall related injury risk are minimized (interventions related to the fall risk can be found in the flowsheet documentation) Outcome: Progressing Problem: Nutrient: Inadequate protein-energy intake Goal: Total intake will meet estimated nutrient needs Outcome: Progressing Problem: Transfers Goal: STG - Patient will transfer sit to and from stand Outcome: Progressing Problem: Balance Goal: LTG - Patient will demonstrate Intervention to enhance balance for safe completion of daily activities Outcome: Progressing * Jose M Reynoso MD - 10/25/2022 10:37 AM CDT Hospitalist Progress Note Hospital Course: Esperanza Chaparro??is a 67 yo M with CAD, COPD , hypertension, diabetes, sleep apnea, colon cancer s/p colectomy??admitted for??sudden onset left-sided face arm and leg weakness on 10/12. MRI confirmed acute right MCA and SHEA cortical infarcts.??Received??tPA. ??He developed respiratory failure requiring intubation. ??Able to be successfully extubated on 10/15.??He was also treated for a peritonsillar abscess s/p Unasyn course. Transferred to floor on 10/17.??Initially meds and feeds for through NG tube but cleared for oral dysphagia diet on 10/19. ??He has been doing well with thin liquids and purees. ??Transferred to medicine team for further management of post stroke care and rehab placement. Subjective: Doing well. Continues to have asymptomatic sinus bradycardia on tele. Objective: Blood pressure 126/52, pulse 56, temperature 97.6 ??F (36.4 ??C), temperature source Oral, resp. rate 18, height 1.803 m (5' 11 ), weight 103 kg (227 lb 1.2 oz), SpO2 96 %. Gen: NAD HEENT: NCAT RESP: Clear to auscultation CV: Nl S1 and S2 GI: Soft and non tender. +BS EXT: No edema. NEURO: Appropriately interactive. Left hemiplegia MAR reviewed Assessment/Plan: Assessment: Esperanza Chaparro is a 67 year old male who presented with acute R MCA and SHEA stroke. ?? Plan: #??acute ischemic stroke??with residual L sided hemiplegia -??continue stroke protocol, PT OT efforts -??risk factor modification??-??aspirin, Plavix 90 days, statin -??long-term goal blood pressure less than 130/80 ?? #??dysphagia secondary to stroke -??CHEMISTRY PHYSICS TEACHER following. Appreciate dietary recs. ?? # DMII - basal + bolus insulin, titrate as needed - resume SGLT2i Jardiance, increase to 25 mg daily on discharge ?? # HTN -??continue??amlodipine and losartan - monitor creatinine on next lab draw. - titrate as needed ?? #CAD s/p PCI - continue ASA, statin - beta alec held 2/2 bradycardia ?? #??COPD not in acute??exacerbation - resume home inhalers, duonebs prn ?? # Sinus Bradycardia - home Coreg held - asymptomatic. Continue to monitor. Remains on tele. ?? # diarrhea - chronic per patient, Imodium PRN ?? # Peritonsillar abscess, resolved, s/p Unasyn treatment complete 10/19 ?? Diet: modified consistency. Speech therapy following. Appreciate recs. DVT PPx:?Heparin Code Status:?Full Disposition: Needs inpatient rehab on discharge through [facility], process started by case management. Jose M Reynoso MD [facility] Medicine 10/25/2022 Feel free to text page me through [employer], login [email or web address] * Clari Worrell RN - 10/24/2022 3:34 PM CDT Problem: Tobacco Use Goal: Inpatient tobacco-use cessation counseling participation Outcome: Progressing Problem: Pain/Discomfort Goal: Patient exhibits reduced pain/discomfort as evidenced by pain scores Outcome: Progressing Goal: Patient uses pharmacological and non-pharmacological pain management strategies. Outcome: Progressing Goal: Patient verbalizes acceptable level of pain relief and ability to engage in desired activity. Outcome: Progressing Problem: Neurological Deficit Goal: Neurological status is stable or improving Outcome: Progressing Problem: Hemodynamic Status/Cardiac Output Goal: Patient has stable vital signs and fluid balance Outcome: Progressing Problem: Oxygenation/Respiratory Function Goal: Respiratory rate/effort will be within specified limits Outcome: Progressing Problem: Mobility Goal: Patient's mobility/activity will be maintained as optimum level for age, diagnosis and physical limitations Outcome: Progressing Goal: Continuum of care needs are further met through referral to outpatient services when appropriate. Outcome: Progressing Goal: Patient reports the ability to perform Activities of Daily Living. Outcome: Progressing Problem: Communication Impairment/Dysarthria Goal: Ability to express needs and understand communication Outcome: Progressing Problem: Nutrition Goal: Nutritional status is improving Outcome: Progressing Problem: Aspiration Precautions Goal: Patient's risk of aspiration is minimized Outcome: Progressing Problem: Glycemic Control Goal: Clinical indication of glycemia balance is achieved Outcome: Progressing Problem: Knowledge Deficit,Education,Discharge Plan Goal: The patient/family will understand cerebrovascular disease and its symptoms, treatment and management Outcome: Progressing Problem: Skin Integrity Goal: Skin integrity is maintained or improved Outcome: Progressing Problem: Fall Risk Goal: Fall risk and fall related injury risk are minimized (interventions related to the fall risk can be found in the flowsheet documentation) Outcome: Progressing Problem: Nutrient: Inadequate protein-energy intake Goal: Total intake will meet estimated nutrient needs Outcome: Progressing Problem: Transfers Goal: STG - Patient will transfer sit to and from stand Outcome: Progressing Problem: Balance Goal: LTG - Patient will demonstrate Intervention to enhance balance for safe completion of daily activities Outcome: Progressing * Jose M Reynoso MD - 10/24/2022 9:10 AM CDT Hospitalist Progress Note Hospital Course: Esperanza Chaparro??is a 67 yo M with CAD, COPD , hypertension, diabetes, sleep apnea, colon cancer s/p colectomy??admitted for??sudden onset left-sided face arm and leg weakness on 10/12. MRI confirmed acute right MCA and SHEA cortical infarcts.??Received??tPA. ??He developed respiratory failure requiring intubation. ??Able to be successfully extubated on 10/15.??He was also treated for a peritonsillar abscess s/p Unasyn course. Transferred to floor on 10/17.??Initially meds and feeds for through NG tube but cleared for oral dysphagia diet on 10/19. ??He has been doing well with thin liquids and purees. ??Transferred to medicine team for further management of post stroke care and rehab placement. Subjective: Overnight, patient bradycardic in 40s to 50s. Asymptomatic. EKG this morning showed sinus bradycardia. Doing well. Mental status good. Inquiring about advancing diet. Objective: Blood pressure 119/48, pulse 42, temperature 97.9 ??F (36.6 ??C), temperature source Oral, resp. rate 16, height 1.803 m (5' 11 ), weight 103 kg (227 lb 1.2 oz), SpO2 95 %. Gen: NAD HEENT: NCAT RESP: Clear to auscultation CV: Nl S1 and S2 GI: Soft and non tender. +BS EXT: No edema. NEURO: Appropriately interactive. Left hemiplegia MAR reviewed Relevant labs reviewed Relevant imaging reviewed Assessment/Plan: Assessment: Esperanza Chaparro is a 67 year old male who presented with acute R MCA and SHEA stroke. ?? Plan: #??acute ischemic stroke??with residual L sided hemiplegia -??continue stroke protocol, PT OT efforts -??risk factor modification??-??aspirin, Plavix 90 days, statin -??long-term goal blood pressure less than 130/80 ?? #??dysphagia secondary to stroke -??CHEMISTRY PHYSICS TEACHER following. Appreciate dietary recs. ?? # DMII - basal + bolus insulin, titrate as needed - resume SGLT2i Jardiance, increase to 25 mg daily on discharge ?? # HTN -??continue??amlodipine and losartan - monitor creatinine on next lab draw. - titrate as needed ?? #CAD s/p PCI - continue ASA, statin - beta alec held 2/2 bradycardia ?? #??COPD not in acute??exacerbation - resume home inhalers, duonebs prn ?? # Sinus Bradycardia - home Coreg held - asymptomatic. Continue to monitor. Remains on tele. ?? # diarrhea - chronic per patient, Imodium PRN ?? # Peritonsillar abscess, resolved, s/p Unasyn treatment complete 10/19 ?? Diet: modified consistency. Speech therapy following. Appreciate recs. DVT PPx:?Heparin Code Status:?Full Disposition: Needs inpatient rehab on discharge through [facility], process started by case management. Jose M Reynoso MD Hospital Medicine 10/24/2022 Feel free to text page me through [employer], login [email or web address] * Vicenta Mendes RN - 10/24/2022 6:04 AM CDT Problem: Hemodynamic Status/Cardiac Output Goal: Patient has stable vital signs and fluid balance Outcome: Not Progressing Problem: Tobacco Use Goal: Inpatient tobacco-use cessation counseling participation Outcome: Progressing Problem: Pain/Discomfort Goal: Patient exhibits reduced pain/discomfort as evidenced by pain scores Outcome: Progressing Goal: Patient uses pharmacological and non-pharmacological pain management strategies. Outcome: Progressing Goal: Patient verbalizes acceptable level of pain relief and ability to engage in desired activity. Outcome: Progressing Problem: Neurological Deficit Goal: Neurological status is stable or improving Outcome: Progressing Problem: Oxygenation/Respiratory Function Goal: Respiratory rate/effort will be within specified limits Outcome: Progressing Problem: Mobility Goal: Patient's mobility/activity will be maintained as optimum level for age, diagnosis and physical limitations Outcome: Progressing Goal: Continuum of care needs are further met through referral to outpatient services when appropriate. Outcome: Progressing Goal: Patient reports the ability to perform Activities of Daily Living. Outcome: Progressing Problem: Communication Impairment/Dysarthria Goal: Ability to express needs and understand communication Outcome: Progressing Problem: Nutrition Goal: Nutritional status is improving Outcome: Progressing Problem: Aspiration Precautions Goal: Patient's risk of aspiration is minimized Outcome: Progressing Problem: Glycemic Control Goal: Clinical indication of glycemia balance is achieved Outcome: Progressing Problem: Knowledge Deficit,Education,Discharge Plan Goal: The patient/family will understand cerebrovascular disease and its symptoms, treatment and management Outcome: Progressing Problem: Skin Integrity Goal: Skin integrity is maintained or improved Outcome: Progressing Problem: Fall Risk Goal: Fall risk and fall related injury risk are minimized (interventions related to the fall risk can be found in the flowsheet documentation) Outcome: Progressing Problem: Nutrient: Inadequate protein-energy intake Goal: Total intake will meet estimated nutrient needs Outcome: Progressing Problem: Transfers Goal: STG - Patient will transfer sit to and from stand Outcome: Progressing Problem: Balance Goal: LTG - Patient will demonstrate Intervention to enhance balance for safe completion of daily activities Outcome: Progressing * Yelitza Grey MD - 10/23/2022 2:59 PM CDT GENERAL INTERNAL MEDICINE Progress note 10/23/2022 2:59 PM Admit Date: 10/12/2022 Interval History: he is hungry for hamburger and not satisfied with dysphagia diet. Denies any coughing or choking events. He is still having loose stools but no abdominal pain fevers, nausea vomiting. Hospital Course: Esperanza Chaparro is a 67 year old male with history of coronary disease, COPD , hypertension, diabetes, sleep apnea, colon cancer s/p colectomy admitted for sudden onset left-sided face arm and leg weakness on 10/12. Activated stroke protocol on ED arrival at [place] in transfer to [facility] for higher level ofcare. Admit NIHSS was 21. MRI confirmed acute right MCA and SHEA cortical infarcts. Received tPA. Hedeveloped respiratory failure requiring intubation. Able to be successfully extubated on 10/15. He was also treated for a peritonsillar abscess s/p Unasyn course. Transferred to floor on 10/17. Initially meds and feeds for through NG tube but cleared for oral dysphagia diet on 10/19. He has been doing well with thin liquids and purees. Transferred to medicine team for further management of post stroke care and rehab placement. Medications:: MAR reviewed Physical Examination: BP 137/55 Pulse 56 Temp 98.3 ??F (36.8 ??C) (Oral) Resp 18 Ht 1.803 m (5' 11 ) Wt 103 kg (227 lb 1.2 oz) SpO2 92% GEN: awake, alert, NAD, chronically ill HEENT: MMM, NC/AT, conjunctiva clear NECK: supple, trachea midline LUNGS: nonlabored respiratory pattern, LCAB w/o wheeze/rhonchi/rale CV: RRR, normal heart sounds, no edema ABD: soft, +BS, nondistended, obese NEURO: awake, conversant, L sided hemiplegia PSYCH: cooperative, appropriate mood/affect Labs: Relevant labs reviewed, notable for nml sodium levels Radiology: Relevant imaging reviewed. Assessment: Esperanza Chaparro is a 67 year old male who presented with acute R MCA and SHEA stroke. Plan: # acute ischemic stroke with residual L sided hemiplegia - continue stroke protocol, PT OT efforts, needs IPR on discharge - risk factor modification - aspirin, Plavix 90 days, statin - long-term goal blood pressure less than 130/80 ?? # dysphagia secondary to stroke - continue dysphagia diet, thin liquids - CHEMISTRY PHYSICS TEACHER following ?? # DMII - basal + bolus insulin, titrate as needed - resume SGLT2i Jardiance, increase to 25 mg daily on discharge ?? # HTN - continue amlodipine and losartan - titrate as needed ?? #CAD s/p PCI - continue ASA, statin, beta alec held 2/2 bradycardia ?? # COPD not in acute exacerbation - resume home inhalers, duonebs prn ?? #Bradycardia - home Coreg held # diarrhea - chronic per patient, Imodium PRN ?? # Peritonsillar abscess, resolved, s/p Unasyn treatment complete 10/19 ?? DVT PPx: Heparin Code Status: Full ?? Discharge Planning: PT/OT Consulted: Yes SW/Dispo: Needs inpatient rehab on discharge through [facility], process started by case management. Plan of care discussed in multidisciplinary rounds. ?? Yelitza Grey MD General Internal Medicine 10/23/2022 2:59 PM * Aman Cruz RN - 10/23/2022 2:46 PM CDT Care Coordination Progress Note ?? Anticipated level of care at discharge: Acute Rehab Facility Discharge Plan: Patient is new to my service. Discharge needs dependent on response to clinical treatment and therapy recommendations. CM will continue to follow. Current recommendation is for acute rehab. SW to arrange through [facility]. ? READMISSION RISK SCORE is 18 at 2:10 PM 10/21/2022. ?? Anticipated Discharge Date: 10/26/22 Patient/Family provided with list of resources? Unknown Preferred Provider / High Quality Network List given?: Unknown Reason for provider choice: Pt. choice - Pt. choice, Insurance ?? Family Support (Name and Phone): Extended Emergency Contact Information Primary Emergency Contact: DenizClarita kaur Relation: Mother Secondary Emergency Contact: Nichelle Varghese Relation: Sister ?? Patient is alert & orientated or has capacity for decision making: ?? If No , Legal or Designated Decision Maker: ?? Transportation at Discharge: (to be determined) ?? Equipment at Home: Equipment at Home: Walker-4 Wheeled with Seat ?? List DME patient requires but does not have: ?? DME Provider: ?? Medication affordability concerns: ? Follow Up Appointment: ?? Transportation to MD: ?? Aman Cruz [employer] HOME E[employer]OMIST onsite case manager [phone] * Marina Paige, RD/LD - 10/23/2022 2:10 PM CDT Nutrition Re-Assessment Brief Synopsis: Patient is at Nutrition Risk; Specific criteria can be found in assessment below Nutrition Plan: Diet per ST recs Modify ONS to Ensure Plus High Protein (1.5 kcal) (350 kcal, 20 grams pro, 40 grams CHO) TID w/ meals +1 packet Nutrisource Fiber TID. Provides 45kcal and 9g fiber. Recommendations to Physician: Advance diet to advanced soft/DYS [address] Comments: Pt scheduled for reassessment. Noted pt currently on Minced & Moist diet; noted pt can advance to Advanced Soft/DYS (3) modified consistency, per ST note yesterday. PO intake 0-50% during past 48 hrs of documentation. +BM 8x in past 24 hrs; noted watery/loose stool in documentation. RD to send fiber pkt w/ meals to promote formed BMs. Labs reviewed; [place] wnl. Pt reported fair appetite, but expressed disliking food because it is too liquidy and causing diarrhea. Pt agreed to have RD send fiber supplement to aid with formed BMs. Pt also expressed having pain and wanting injection of morphine to help symptom. RN notified; RN noted that pt's doctor was notified earlier. Pt also expressed not liking chocolate flavor of ensure. RD to modify current ONS tosend only vanilla flavor TID. Will continue to monitor. Assessment: Med/Surg History and Clinical Diagnoses: PMH significant for CVA, HTN, HLD, DM, CAD s/p stenting, tobacco use, JAMES, and COPD, transferred to [facility] due to acute ischemic stroke, seen in consultation for concern for right peritonsillar abscess. CT neck obtained showing small right peritonsillar phlegmon. Height: 180.3 cm (5' 11 ) Weight: 103 kg (227 lb 1.2 oz) BMI: Body mass index is 31.67 kg/m??. BMI Range: Severely Obese Class 2 IBW/lb (Calculated) Male: 172 , Recent Weights/Methods 10/16/2022 0400 10/17/2022 0400 10/18/2022 0545 10/19/2022 0615 10/20/2022 0543 10/20/2022 1914 10/21/2022 0400 10/22/2022 0400 Weight: 123 kg (271 lb 3.2 oz) 124.7 kg (275 lb) 127.1 kg (280 lb 4.8 oz) 127.9 kg (282 lb) 126.1 kg (278 lb) 105.3 kg (232 lb 1.6 oz) 102.5 kg (226 lb) 103 kg (227 lb 1.2 oz) Weight Method (Utilize Scales): Bedscale Bedscale Bedscale Bedscale Bedscale Bedscale Bedscale Bedscale Wt Comments: reviewed, weight trending down Diet order accuracy Current diet order: Minced & Moist (5) / Mech Altered (DYS2) Current supplement order: EHP QID Current tube feeding order: d/c'd Nutrition recommendation: alter/change nutrition order P.O.Intake for the past 48 hrs: % Meal Taken Av.5 % Min: 0 % Max: 50 % Food Allergies: No known food allergies GI Concerns: None Chewing/Swallowing: None Pain affecting intake: No Estimated Needs: KCAL: 2640 (35 kcal/kg IBW) Protein (g): 132 (20% of total kcal needs Fluid (ml): 1 ml/kcal Needs based on: Kcal/kg- (Comment) (IBW - 75.5kg) Recommended Access Route: PO Laboratory values: Recent Labs Component Name 10/23/22 0543 10/22/22 0552 10/21/22 0540 10/12/22202210/12/22202012/12/21 0205 12/11/21 1227 BUN 31* 29* 31* - 34* - 20 CREATININE 1.17* 1.00 1.00 - 1.36* - 1.40* NA 141 142 144 - 135* - 135* POTASSIUM 4.0 4.2 4.1 - 5.2* - 4.4 CL 108* 108* 112* - 109* - 99 CO2 26 28 28 - 16* - 27 GLUCOSE 106 111 109 - 242* - 188* CALCIUM 9.1 9.2 9.1 - 9.1 - 9.7 PROT - - - - 7.2 - 7.2 ALB - - - - 3.5 - 3.7 TBILI - - - - 0.3 - 0.7 ALKPHOS - - - - 76 - 68 ALT - - - - 20 - 11 AST - - - - 14 - 13 ANIONGAP 11 10 8 - 15 - 13 BCR 26* 29* 31* - 25* - 14 OSMOLALITY 299 301* 305* - 296 - 288 AGRATIO - - - - 0.9* - 1.1 EGFR 69* 83* 83* - 57* - 56* - = values in this interval not displayed. Medications: Current Facility-Administered Medications Medication ??? acetaminophen (Tylenol) tablet 650 mg ??? albuterol-ipratropium (Duo-Neb) nebulizer solution 3 mL ??? amLODIPine (Norvasc) tablet 10 mg ??? aspirin chew tablet 81 mg ??? bismuth subsalicylate (Pepto-Bismol) chew tablet 524 mg ??? budesonide-formoterol (Symbicort) 160-4.5 MCG/ACT inhaler 2 puff ??? clopidogrel (plaVIX) tablet 75 mg ??? dextrose 10 % IV bolus Or ??? dextrose 10 % IV bolus ??? empagliflozin (Jardiance) tablet 10 mg ??? glucagon (Glucagen) injection 1 mg ??? glucose (Diabetic Use) (Dex4 Glucose) oral liquid ??? glucose (Diabetic Use) oral gel ??? glucose chew tablet 4 tablet ??? heparin injection 5,000 Units ??? insulin glargine (Lantus) pen 10 Units ??? insulin lispro (HumaLOG;ADMelog) 100 UNIT/ML pen 0-12 Units ??? lidocaine (Lidoderm) 5 % patch 1 patch ??? losartan (Cozaar) tablet 50 mg ??? melatonin tablet 8 mg ??? nicotine (Nicoderm CQ) patch 21 mg ??? polyethylene glycol 3350 (Miralax) packet 17 g ??? rosuvastatin (Crestor) tablet 40 mg ??? tiotropium (Spiriva Respimat) 2.5 MCG/ACT inhaler 2 puff Skin/Wound: WDL Education needed: Stroke Nutrition Therapy Education Provided: Prior to Discharge Nutrition Care Process (1) Nutrition Diagnostic Statement: Inadequate protein-energy intake related to:: decreased ability to consume or tolerate adequate food and/or fluids due to illness as evidenced by:: estimated intake insufficient to meet requirements;oral intake less than .. Nutrition Diagnostic Statement Progress: Nutrition problem continues Nutrition Intervention: Meals and snacks:;Medical Food Supplements:;Enteral nutrition: Monitoring: GI, PO intake, WT, labs, medications Evaluation: Nutrition Goal: Total intake will meet estimated nutrient needs Nutrition Goal Timeframe: Throughout stay Nutrition Goal Progress: Continue with current goal Marina Paige RD/MICHELA, [place] Ascom: [phone] * Ryanne Baxter RN - 10/23/2022 7:02 AM CDT Problem: Tobacco Use Goal: Inpatient tobacco-use cessation counseling participation Outcome: Progressing Problem: Pain/Discomfort Goal: Patient exhibits reduced pain/discomfort as evidenced by pain scores Outcome: Progressing Goal: Patient uses pharmacological and non-pharmacological pain management strategies. Outcome: Progressing Goal: Patient verbalizes acceptable level of pain relief and ability to engage in desired activity. Outcome: Progressing Problem: Neurological Deficit Goal: Neurological status is stable or improving Outcome: Progressing Problem: Hemodynamic Status/Cardiac Output Goal: Patient has stable vital signs and fluid balance Outcome: Progressing Problem: Oxygenation/Respiratory Function Goal: Respiratory rate/effort will be within specified limits Outcome: Progressing Problem: Mobility Goal: Patient's mobility/activity will be maintained as optimum level for age, diagnosis and physical limitations Outcome: Progressing Goal: Continuum of care needs are further met through referral to outpatient services when appropriate. Outcome: Progressing Goal: Patient reports the ability to perform Activities of Daily Living. Outcome: Progressing Problem: Communication Impairment/Dysarthria Goal: Ability to express needs and understand communication Outcome: Progressing Problem: Nutrition Goal: Nutritional status is improving Outcome: Progressing Problem: Aspiration Precautions Goal: Patient's risk of aspiration is minimized Outcome: Progressing Problem: Glycemic Control Goal: Clinical indication of glycemia balance is achieved Outcome: Progressing Problem: Knowledge Deficit,Education,Discharge Plan Goal: The patient/family will understand cerebrovascular disease and its symptoms, treatment and management Outcome: Progressing Problem: Skin Integrity Goal: Skin integrity is maintained or improved Outcome: Progressing Problem: Fall Risk Goal: Fall risk and fall related injury risk are minimized (interventions related to the fall risk can be found in the flowsheet documentation) Outcome: Progressing Problem: Nutrient: Inadequate protein-energy intake Goal: Total intake will meet estimated nutrient needs Outcome: Progressing Problem: Transfers Goal: STG - Patient will transfer sit to and from stand Outcome: Progressing Problem: Balance Goal: LTG - Patient will demonstrate Intervention to enhance balance for safe completion of daily activities Outcome: Progressing * Jana Sancehz SLP - 10/22/2022 4:06 PM CDT [facility] Physical Medicine and Rehabilitation Swallow Treatment Patient: Esperanza Chaparro Med Record Number: [id number] Date of : 1955 Age: [age] year old PPE: PPE worn by staff: (P) gloves PPE worn by patient: (P) gown - patient, clean Impressions: ST reassessed swallow function at bedside with thin, puree, and cracker. Pt tolerated all trials w/o CSA. Pt demonstrates significantly increased AP transit with cracker. Pt required frequent reminders to follow safe swallow guidelines. Pt demonstrates improved MS since previous sessions. Nsg states he is tolerating current diet. ST recommends diet upgrade to Soft & Bite Sized (6)/Advanced Soft (DYS3) and thin liquids with supervision, meds crushed in puree, and cues to follow safe swallow strategies.??ST will continue to follow to ensure diet tolerance and advance as appropriate. Recommendations: Diet Liquids Recommendation: (P) Thin/ Thin (0) Diet Solids Recommendation: (P) Advanced Soft Dys 3/Soft & Bite Sized (6) Recommended Form of Meds: (P) Crushed;With puree Compensatory Swallowing Strategies: (P) 90 Degrees elevation for all oral intake;Full supervision with meals;Alternate solids and liquids;Swallow 2 times per bite/sip;Verbal cueing required to use;One to one assist with meals;Chin tuck;Small bites/sips;Eat/Feed slowly;Effortful swallow (press/squeeze hard);Tongue sweep to clear oral;Feed patient only when alert;Elicit Swallow Swallowing Strategies Recommended Tests/Consults: Recommendations: (P) Dysphagia Treatment ?? Discharge Recommendations: TBD pending medical status Speech therapy is recommended to improve swallow function. ?? SUBJECTIVE: Patient Goals: Pt wants NG tube out. ?? Pain Assessment: Pain Location #1 Pain Scale/Observation: (P) Numeric (0-10) Pain Rating Score #1: (P) 4 Sedation Level #1: (P) 1-Awake and alert Pain Location : (P) Back ?? OBJECTIVE: Level of Consciousness: alert and agitated Orientation Level: oriented x 4 ?? Positioning: Upright in bed ?? Respiratory Status: room air ?? Swallow Trials: Thin Liquid: Presentation: (P) Straw-Assisted Oral: (P) Increased Anterior to Posterior Transit;Spillage Left Pharyngeal: (P) Decreased Laryngeal Elevation (no s/s of aspiration) ?? Puree: Presentation: (P) Spoon-Assisted Oral: (P) Spillage Left;Increased Anterior to Posterior Transit Pharyngeal: (P) Decreased Laryngeal Elevation (no s/s of aspiration) Solid: Presentation: (P) Assisted Oral: (P) Impaired Mastication;Increased Anterior to Posterior Transit;Delayed Initiation Pharyngeal: (P) Delayed Swallow;Decreased Laryngeal Elevation Assessment: Risk For Aspiration: (P) Moderate Primary Diagnostic Impression - Oral: (P) Moderate Primary Diagnostic Impression - Pharyngeal: (P) Moderate Treatment/Education/Interventions: While performing CHEMISTRY PHYSICS TEACHER, Patient was instructed in: goals of treatment , diet/liquid recommendations, swallowing strategies/aspiration precautions and clinical signs of aspiration . Patient demonstrated Fair understanding of instructions given. Physician and Nurse contacted regarding results of treatment session. INFORMED CONSENT TO TREATMENT: Plan of care including recommended therapy, goals and frequency, discussed with patient who understands and agrees to proceed. Short Term Goals Patient will tolerate recommended food and liquid consistencies without clinical signs of aspiration., Patient will understand clinical signs of aspiration and aspiration precautions., Patient will follow recommended swallowing strategies., Patient will demonstrate an improvement in oropharyngeal swallow function to warrant diet upgrade. Prison Goal (s): Patient to be independent/baseline with functional mobility and self care and be able to safely discharge to prior level of care. Plan: Dysphagia Therapy If patient is discharged from the facility, this note serves as a discharge note if further speech therapy visits did not occur. Esther Elkins MS [facility]-CHEMISTRY PHYSICS TEACHER Speech Language Pathologist * Kristi Trivedi, OT - 10/22/2022 2:32 PM CDT [facility] Physical Medicine and Rehabilitation Occupational Therapy Progress Note Patient: Esperanza Chaparro Med Record Number: [id number] Date of : 1955 Age: [age] year old PPE worn by staff: gloves;mask - procedural PPE worn by patient: gown - patient, clean Cotx w/ PT 2/2 anticipated level of skilled assist Recommendations: Discharge OT Discharge Recommendations: Patient would benefit from multidisciplinary therapy This recommendation is made due to ongoing OT functional needs: address functional deficits;patientis motivated and actively participating in therapy;patient has ability to improve with skilled therapy intervention;address care for self in the home Nurse and Physical Therapy contacted regarding patient status and/or discharge plan. Activity Level: as tolerated PRECAUTIONS: Weight Bearing Status: (WBAT x4) SUBJECTIVE: Subjective: Pt agreeable to therapy Pain Assessment: Pain Location #1 Pain Scale/Observation: Behaviors Pain Rating Score #1: 6 Sedation Level #1: 1-Awake and alert Pain Location : Groin;Neck;Back OBJECTIVE: At start of therapy session, patient found in bed General Appearance: 67 y/o male received in NAD LDA: IV's: Peripheral line Mental Status/Cognition: Level of Consciousness-Adult: Alert Orientation Level: Oriented X4 Cognition: Follows Commands-Consistent Attention Span: Attends with cues to redirect Following Commands: Follows one step commands with repetition/cues Safety Judgement: Decreased awareness of need for assistance Awareness of Errors: Decreased awareness of deficits Problem Solving: Assistance required to generate solutions;Assistance required to identify errors made;Assistance required to implement solutions Mobility: a gait belt and non-slip socks were used for all out of bed activity this date. Bed Mobility: Rolling: Maximal Assistance to Right;Maximal Assistance to Left Supine to Sit: Maximum Assistance;X 2;Requires Verbal Cues for Technique;Requires Physical Cues forTechnique with HOB in semi-fowlers position Sit to Supine: Maximum Assistance;X 2;Requires Verbal Cues for Technique Functional Ambulation: Comments: All OOB mobility deferred 2/2 poor sitting balance Balance: Sitting - Static: Poor +;With One Upper Extremity Support (sitting balance fluctuates between minimal-maximal assist with verbal/visual/tactile cues for postural corrections) Sitting - Dynamic: Poor Activities of Daily Living: Feeding: Activity Does Not Occur Oral Facial Hygiene: Other (Comment) (SBA wash face with R UE seated EOB with moderate assist to maintain sitting balance) Bathing: Activity Does Not Occur Upper Body Dressing: Maximal Assistance;Requires Verbal Cues for Technique;Requires Physical Cues for Technique (don gown from semi-supine) Lower Body Dressing: Total Assistance Toileting: Activity Does Not Occur Splint Issued/Checked: none ACTIVITY TOLERANCE: Patient's activity tolerance: fair. Modified [place]: Current Modified Rohan Score: 5 AM-PAC 6 Clicks Daily Activity Raw Score:: 10 TREATMENT/INTERVENTIONS: ADL training Functional transfer training Endurance training Bed mobility HEP training trunk/head control, postural corrections, UE positioning, weightshifting EOB* EDUCATION: While performing OT, Patient was instructed in:functional mobility training, self-care training, safety awareness/fall precautions , home exercise program, edema management, stroke education and precautions, use of call light Presented to patient who demonstrates Fair understanding of instructions given. INFORMED CONSENT TO TREATMENT: Plan of care including recommended therapy, goals and frequency, discussed with patient who understands and agrees to proceed. ASSESSMENT: Patient continues to benefit from skilled Occupational Therapy to achieve the following functional goals. Short Term Goals: Goal Formation?With patient Cognition:?2 step commands and 100% of the time Patient will increase orientation to?time and situation Patient will perform grooming??at edge of bed and with moderate assist Patient will transfer to bedside commode??with moderate assist and X 2 ?? Etl Bi Developer Goal(s): Patient to discharge to appropriate next level of inpatient care ?? Plan: Patient continues to benefit from skilled therapy services., Continue with goals as established. ?? If patient is discharged from the facility, this note serves as a discharge summary if further occupational therapy visits did not occur. Refer to filed flowsheet for further details. Following therapy session, patient left in bed, with bed alarm on , with call light within reach, with RNJassi. * Salud Montejo, PT - 10/22/2022 1:20 PM CDT [facility] Physical Therapy Progress Note Patient: Esperanza Chaparro Med Record Number: [id number] Date of : 1955 Age: [age] year old PPE worn by staff: gloves;mask - procedural Tech: none; co-tx with OT Recommendations: Discharge PT Discharge Recommendations: Patient would benefit from multidisciplinary therapy This recommendation is made due to ongoing PT functional needs: address functional deficits Recommended Transportation Method: Stretcher/Ambulance SUBJECTIVE: Subjective: I'd like to sit in a chair Pain Assessment: Pain Location #1 Pain Scale/Observation: Numeric (0-10) Pain Rating Score #1: 6 Sedation Level #1: 1-Awake and alert Pain Location : Groin;Back Pain Intervention(s): Declined Intervention PRECAUTIONS: Weight Bearing Status: (no restrictions) Activity Level: Activity as Tolerated OBJECTIVE: At start of therapy session, patient found in bed and with no alarm General Appearance: older male supine in bed LDAs: IV's: Peripheral line Vitals: (*Assess the 3 levels of oxygen saturations both for room air and 02 unless rest on room air is 88% or less). Rest BP: 121/58 HR: 47 Sp02 Sp02 96% Room Air L O2 RA Observations: Pt with no c/o lightheadedness, dizziness or SOB Mental Status/Cognition: Level of Consciousness-Adult: Alert Orientation Level: Oriented X4 Cognition: Follows Commands-Consistent Attention Span: Attends with cues to redirect Mobility: A gait belt and non-slip socks were used for all out of bed activity this date. Bed Mobility: Rolling: Maximal Assistance to Left Supine to Sit: Maximum Assistance;X 2 with HOB in semi-fowlers position Sit to Supine: Maximum Assistance;X 2 Balance: Balance Scales/Tests Used: Sitting: Static/Dynamic Sitting - Static: Poor +;With One Upper Extremity Support Sitting - Dynamic: Poor ACTIVITY TOLERANCE: Patient's activity tolerance: fair TREATMENT/INTERVENTIONS: ROM R LE AROM, L LE PROM x 5-10 reps, bed mobility training, transfer training, balance activities and monitoring of vitals Worked on sitting balance with weight shifting onto R elbow with return to midline Modified Caribou: Current Modified Caribou Score: 5 AM-PAC 6 Clicks Mobility Raw Score:: 8 EDUCATION: While performing PT, Patient was instructed in:functional mobility training, safety awareness/fall precautions Presented to patient who demonstrates Fair understanding of instructions given. ASSESSMENT: Patient would benefit from additional Physical Therapy sessions to achieve the following functionalgoals to enhance independence. Short Term Goals: Patient will perform bed mobility??with maximal assist and X 1 Patient will transfer sit to/from stand??with moderate assist and X 2 Patient will transfer bed to/from chair??with moderate assist and X 2 Patient will demonstrate sitting balance of Poor plus x 10 minutes Etl Bi Developer Goal(s): Patient to discharge to appropriate next level of inpatient care. INFORMED CONSENT TO TREATMENT: Plan of care including recommended therapy, goals and frequency, discussed with patient who understands and agrees to proceed. Equipment Issued: none Plan: Patient continues to benefit from skilled therapy services., Continue with goals as established. If patient is discharged from the facility, this note serves as a discharge summary if further physical therapy visits did not occur. Refer to filed flowsheet for further details. Following therapy session, patient left in bed, with call light within reach, with RN, Jassi gomes. * Fredis Samuels RN - 10/22/2022 1:11 PM CDT Care Coordination Progress Note Anticipated level of care at discharge: Acute Rehab Facility Discharge Plan: Will likely discharge to Acute Rehab when medically ready. Referrals were placed by. Refer to notes for further details. sent referral to [place] for rehab. READMISSION RISK SCORE is 18 at 1:12 PM 10/22/2022. Anticipated Discharge Date: 10/20/22 Patient/Family provided with list of resources? Unknown Preferred Provider / High Quality Network List given?: Unknown Reason for provider choice: Pt. choice - Pt. choice, Insurance Family Support (Name and Phone): Extended Emergency Contact Information Primary Emergency Contact: Clarita Guaman Relation: Mother Secondary Emergency Contact: Nichelle Varghese Relation: Sister Patient is alert & orientated or has capacity for decision making: If No , Legal or Designated Decision Maker: Transportation at Discharge: (to be determined) Equipment at Home: Equipment at Home: Walker-4 Wheeled with Seat List DME patient requires but does not have: DME Provider: Medication affordability concerns: Follow Up Appointment: Transportation to MD: Auth Number (if required): [place]: DME: Medications: Transportation: Name: Fredis Samuels RN Phone: [phone] * Yelitza Grey MD - 10/22/2022 11:48 AM CDT GENERAL INTERNAL MEDICINE Progress note 10/22/2022 11:48 AM Admit Date: 10/12/2022 Interval History: Patient having loose stools, apparently chronic problem for him since colectomy (performed 2 colorectal cancer). Takes pepto at home. His intake is fair, doing well with meds. Vitals stable. Hospital Course: Esperanza Chaparro is a 67 year old male with history of coronary disease, COPD , hypertension, diabetes, sleep apnea, colon cancer s/p colectomy admitted for sudden onset left-sided face arm and leg weakness on 10/12. Activated stroke protocol on ED arrival at [place] in transfer to [facility] for higher level ofcare. Admit NIHSS was 21. MRI confirmed acute right MCA and SHEA cortical infarcts. Received tPA. Hedeveloped respiratory failure requiring intubation. Able to be successfully extubated on 10/15. He was also treated for a peritonsillar abscess s/p Unasyn course. Transferred to floor on 10/17. Initially meds and feeds for through NG tube but cleared for oral dysphagia diet on 10/19. He has been doing well with thin liquids and purees. Transferred to medicine team for further management of post stroke care and rehab placement. Medications:: MAR reviewed Physical Examination: BP 144/60 Pulse 58 Temp 99.3 ??F (37.4 ??C) (Oral) Resp 18 Ht 1.803 m (5' 11 ) Wt 103 kg (227 lb 1.2 oz) SpO2 94% GEN: awake, alert, NAD HEENT: MMM, NC/AT, conjunctiva clear NECK: supple, trachea midline LUNGS: nonlabored respiratory pattern, LCAB w/o wheeze/rhonchi/rale CV: RRR, normal heart sounds, no edema ABD: soft, +BS, nondistended, obese NEURO: awake, conversant, L sided hemiplegia PSYCH: cooperative, appropriate mood/affect SKIN: warm, dry Labs: Relevant labs reviewed, notable for nml sodium levels, Cr stable. Radiology: Relevant imaging reviewed. Assessment: Esperanza Chaparro is a 67 year old male who presented with acute R MCA and SHEA stroke. Plan: # acute ischemic stroke with residual L sided hemiplegia - continue stroke protocol, PT OT efforts, needs IPR on discharge - risk factor modification - aspirin, Plavix 90 days, statin - long-term goal blood pressure less than 130/80 ?? # dysphagia secondary to stroke - continue dysphagia diet, thin liquids - CHEMISTRY PHYSICS TEACHER following ?? # DMII - basal + bolus insulin, titrate as needed - resume SGLT2i Jardiance, increase to 25 mg daily on discharge ?? # HTN - continue amlodipine and losartan - titrate as needed ?? #CAD s/p PCI - continue ASA, statin, beta alec held 2/2 bradycardia ?? # COPD not in acute exacerbation - resume home inhalers, duonebs prn ?? #Bradycardia - home Coreg held ?? # Peritonsillar abscess, resolved, s/p Unasyn treatment complete 10/19 ?? DVT PPx: Heparin Code Status: Full ?? Discharge Planning: PT/OT Consulted: Yes SW/Dispo: Needs inpatient rehab on discharge through [facility], process started by case management ?? Yelitza Grey MD General Internal Medicine 10/22/2022 11:48 AM * Lawanda Rodriguez RN - 10/21/2022 7:28 PM CDT Problem: Tobacco Use Goal: Inpatient tobacco-use cessation counseling participation Outcome: Progressing Problem: Pain/Discomfort Goal: Patient exhibits reduced pain/discomfort as evidenced by pain scores Outcome: Progressing Goal: Patient uses pharmacological and non-pharmacological pain management strategies. Outcome: Progressing Goal: Patient verbalizes acceptable level of pain relief and ability to engage in desired activity. Outcome: Progressing Problem: Neurological Deficit Goal: Neurological status is stable or improving Outcome: Progressing Problem: Hemodynamic Status/Cardiac Output Goal: Patient has stable vital signs and fluid balance Outcome: Progressing Problem: Oxygenation/Respiratory Function Goal: Respiratory rate/effort will be within specified limits Outcome: Progressing Problem: Mobility Goal: Patient's mobility/activity will be maintained as optimum level for age, diagnosis and physical limitations Outcome: Progressing Goal: Continuum of care needs are further met through referral to outpatient services when appropriate. Outcome: Progressing Goal: Patient reports the ability to perform Activities of Daily Living. Outcome: Progressing Problem: Communication Impairment/Dysarthria Goal: Ability to express needs and understand communication Outcome: Progressing Problem: Nutrition Goal: Nutritional status is improving Outcome: Progressing Problem: Aspiration Precautions Goal: Patient's risk of aspiration is minimized Outcome: Progressing Problem: Glycemic Control Goal: Clinical indication of glycemia balance is achieved Outcome: Progressing Problem: Knowledge Deficit,Education,Discharge Plan Goal: The patient/family will understand cerebrovascular disease and its symptoms, treatment and management Outcome: Progressing Problem: Skin Integrity Goal: Skin integrity is maintained or improved Outcome: Progressing Problem: Fall Risk Goal: Fall risk and fall related injury risk are minimized (interventions related to the fall risk can be found in the flowsheet documentation) Outcome: Progressing Problem: Nutrient: Inadequate protein-energy intake Goal: Total intake will meet estimated nutrient needs Outcome: Progressing Problem: Transfers Goal: STG - Patient will transfer sit to and from stand Outcome: Progressing Problem: Balance Goal: LTG - Patient will demonstrate Intervention to enhance balance for safe completion of daily activities Outcome: Progressing * Fredis Samuels RN - 10/21/2022 2:10 PM CDT Care Coordination Progress Note Anticipated level of care at discharge: Acute Rehab Facility Discharge Plan: Patient is new to my service. Discharge needs dependent on response to clinical treatment and therapy recommendations. CM will continue to follow. Current recommendation is for acute rehab. SW to arrange through [facility]. READMISSION RISK SCORE is 18 at 2:10 PM 10/21/2022. Anticipated Discharge Date: 10/20/22 Patient/Family provided with list of resources? Unknown Preferred Provider / High Quality Network List given?: Unknown Reason for provider choice: Pt. choice - Pt. choice, Insurance Family Support (Name and Phone): Extended Emergency Contact Information Primary Emergency Contact: Clarita Guaman Relation: Mother Secondary Emergency Contact: Nichelle Varghese Relation: Sister Patient is alert & orientated or has capacity for decision making: If No , Legal or Designated Decision Maker: Transportation at Discharge: (to be determined) Equipment at Home: Equipment at Home: Walker-4 Wheeled with Seat List DME patient requires but does not have: DME Provider: Medication affordability concerns: Follow Up Appointment: Transportation to MD: Auth Number (if required): [place]: DME: Medications: Transportation: Name: Fredis Samuels RN Phone: [phone] * Yelitza Grey MD - 10/21/2022 1:22 PM CDT Family Notification Documentation Contact made: 10/21/2022 1:22 PM Method of communication: Phone Duration of discussion: 10 minutes Summary of discussion Discussed that Esperanza under medicine service now, new room on [facility]. NG tube removed today, tolerating pureed diet with liquids. He is still very weak on his left side, unclear what strength recovery he will gain in the coming weeks. Plan after hospital would be to do further rehab through [facility] program. * Chana Lake OT - 10/21/2022 11:35 AM CDT [facility] Occupational Therapy Progress Note Patient: Esperanza Chaparro Med Record Number: [id number] Date of : 1955 Age: [age] year old Co-tx with PT due to increased level of skilled assist Recommendations: Discharge OT Discharge Recommendations: Patient would benefit from intensive 3-hour multidisciplinary therapy This recommendation is made due to ongoing intensive OT functional needs: patient demonstrates a significant functional decline and would benefit from skilled therapy intervention to restore function ?? Nurse and Physical Therapy contacted regarding patient status and/or discharge plan. Activity Level: as tolerated SUBJECTIVE: Pt agrees to participate in therapy Pain Assessment: Pain Location #1 Pain Location : Shoulder (did not rate) Pain Orientation: Left OBJECTIVE: At start of therapy session, patient found in bed and with no alarm General Appearance: 67 yo male resting in bed, NAD LDA: Catheter Observations: displays no s/s of distress throughout session Mental Status/Cognition: Level of Consciousness-Adult: Alert Orientation Level: Oriented X4 Cognition: Follows one step commands;Processing-delayed;Judgement-decreased;Safety awareness-decreas ed;Attention/concentration-decreased Mobility: a gait belt and non-slip socks were used for all out of bed activity this date. Bed Mobility: Supine to Sit: Total Assistance;X 2;Requires Verbal Cues for Technique;Requires Physical Cues for Technique with HOB in semi-fowlers position Sit to Supine: Total Assistance;X 2;Requires Verbal Cues for Technique;Requires Physical Cues for Technique Transfers: Sit to Stand: Activity Does Not Occur Stand to Sit: Activity Does Not Occur Balance: Sitting - Static: Poor; assist level fluctuates between mod and max; pt pushes to the L with R UE, displays less pushing with cues to place R UE in lap; unable to hold midline position despite max verbal/tactile and visual cues; also displays significant head flexion, cannot hold at midline for longer than 2-3 seconds Sitting - Dynamic: Poor Activities of Daily Living: Oral Facial Hygiene: Moderate Assistance;Maximal Assistance (washes face sitting EOB, requies cues for thoroughness and mod to max assist for sitting balance) Lower Body Dressing: Total Assistance (don socks) Toileting: Total Assistance (currently using external catheter) ACTIVITY TOLERANCE: Patient's activity tolerance: fair minus. Modified Caribou: Current Modified Caribou Score: 5 AM-PAC 6 Clicks Daily Activity Raw Score:: 9 TREATMENT/INTERVENTIONS: ADL training Cognitive retraining Endurance training Bed mobility Safety awareness HEP training; attempted L shoulder elevation and retraction, no muscle trace noted; worked on trunk/head control and maintaining midline in sitting EDUCATION: While performing OT, Patient was instructed in:functional mobility training, self-care training, safety awareness/fall precautions , home exercise program, stroke education and precautions, use of adaptive equipment, use of call light Presented to patient who demonstrates Fair understanding of instructions given. INFORMED CONSENT TO TREATMENT: Plan of care including recommended therapy, goals and frequency, discussed with patient who understands and agrees to proceed. ASSESSMENT: Functional performance limited due to: limited activities of daily living, pain, decreased functional mobility, decreased functional balance, decreased cognition , decreased safety awareness, upper extremity functional impairments, decreased endurance and activity tolerance, decreased coordination and decreased visual motor skills. Patient continues to benefit from skilled Occupational Therapy to achieve the following functional goals. Short Term Goals: Goal Formation With patient Cognition:?2 step commands and 100% of the time Patient will increase orientation to?time and situation Patient will perform grooming??at edge of bed and with moderate assist Patient will transfer to bedside commode??with moderate assist and X 2 Prison Goal(s): Patient to discharge to appropriate next level of inpatient care Plan: Patient continues to benefit from skilled therapy services., Continue with goals as established. If patient is discharged from the facility, this note serves as a discharge summary if further occupational therapy visits did not occur. Refer to filed flowsheet for further details. Following therapy session, patient left in bed, with call light within reach, with RN, Lawanda aware. * Jana Sanchez, MALU - 10/21/2022 11:11 AM CDT [facility] Rehabilitation Swallow Treatment Patient: Esperanza Chaparro Med Record Number: [id number] Date of : 1955 Age: [age] year old PPE: PPE worn by staff: (P) gloves PPE worn by patient: (P) gown - patient, clean Impressions: ST reassessed swallow function at bedside with thin and puree. Pt was sitting w/ food tray at bedside and not sitting at 90* when ST entered. PT helped ST prop Pt up to 90 with pillows. Pt tolerated all trials w/o CSA. Pt required frequent reminders to follow safe swallow guidelines. ST recommends continued Puree (4)/DYS1 and thin liquids with supervision, meds crushed in puree, and cues to follow safe swallow strategies. ST will continue to follow to ensure diet tolerance and advance as appropriate. Recommendations: Diet Liquids Recommendation: (P) Thin/ Thin (0) Diet Solids Recommendation: (P) Pureed Dys 1/ Pureed (4) Recommended Form of Meds: (P) Crushed;With puree Compensatory Swallowing Strategies: (P) 90 Degrees elevation for all oral intake;Full supervision with meals;Alternate solids and liquids;Swallow 2 times per bite/sip;Verbal cueing required to use;One to one assist with meals;Chin tuck;Small bites/sips;Eat/Feed slowly;Effortful swallow (press/squeeze hard);Tongue sweep to clear oral;Feed patient only when alert;Elicit Swallow Swallowing Strategies Recommended Tests/Consults: Recommendations: (P) Dysphagia Treatment Discharge Recommendations: TBD pending medical status Speech therapy is recommended to improve swallow function. SUBJECTIVE: Patient Goals: Pt wants NG tube out. Pain Assessment: Pain Location #1 Pain Scale/Observation: (P) Numeric (0-10) Pain Rating Score #1: (P) 4 Sedation Level #1: (P) 1-Awake and alert Pain Location : (P) Back OBJECTIVE: Level of Consciousness: alert and agitated Orientation Level: oriented x 4 Positioning: Upright in bed Respiratory Status: room air Swallow Trials: Thin Liquid: Presentation: (P) Straw-Assisted Oral: (P) Increased Anterior to Posterior Transit;Spillage Left Pharyngeal: (P) Decreased Laryngeal Elevation (no s/s of aspiration) Puree: Presentation: (P) Spoon-Assisted Oral: (P) Spillage Left;Increased Anterior to Posterior Transit Pharyngeal: (P) Decreased Laryngeal Elevation (no s/s of aspiration) Assessment: Risk For Aspiration: (P) Moderate Primary Diagnostic Impression - Oral: (P) Moderate Primary Diagnostic Impression - Pharyngeal: (P) Moderate Treatment/Education/Interventions: While performing CHEMISTRY PHYSICS TEACHER, Patient was instructed in: goals of treatment , diet/liquid recommendations, swallowing strategies/aspiration precautions and clinical signs of aspiration . Patient demonstrated Fair understanding of instructions given. Nurse contacted regarding results of treatment session. INFORMED CONSENT TO TREATMENT: Plan of care including recommended therapy, goals and frequency, discussed with patient who understands and agrees to proceed. Short Term Goals Patient will tolerate recommended food and liquid consistencies without clinical signs of aspiration., Patient will understand clinical signs of aspiration and aspiration precautions., Patient will follow recommended swallowing strategies., Patient will demonstrate an improvement in oropharyngeal swallow function to warrant diet upgrade. Prison Goal (s): Patient to be independent/baseline with functional mobility and self care and be able to safely discharge to prior level of care. Plan: Dysphagia therapy If patient is discharged from the facility, this note serves as a discharge note if further speech therapy visits did not occur. Esther Elkins MS CCC-CHEMISTRY PHYSICS TEACHER Speech Language Pathologist * Elida Persaud, PT - 10/21/2022 11:10 AM CDT [facility] Physical Therapy Progress Note Patient: Esperanza Chaparro Med Record Number: [id number] Date of : 1955 Age: [age] year old PPE worn by staff: gloves;mask - N95 Tech: co-tx for skilled needs, balance, weakness. Recommendations: Discharge PT Discharge Recommendations: Patient would benefit from multidisciplinary therapy This recommendation is made due to ongoing PT functional needs: address functional deficits SUBJECTIVE: Subjective: go slow, I have back pain. PRECAUTIONS: Weight Bearing Status: (flaccid R UE/LE. R LE ?? contracture, tightness, poor ability to attain full knee extension.) Activity Level: Activity as Tolerated Other Precautions: L flaccid. OBJECTIVE: At start of therapy session, patient found in bed and with no alarm General Appearance: pt in NAD in bed. LDAs: IV's: Peripheral line and Catheter Mental Status/Cognition: Level of Consciousness-Adult: Alert Orientation Level: Oriented X4 Cognition: Follows Commands-inconsistent Attention Span: Difficulty attending to directions Memory: Decreased short term memory Following Commands: Follows one step commands with repetition/cues Safety Judgement: Decreased awareness of need for assistance Mobility: A gait belt and non-slip socks were used for all out of bed activity this date. Bed Mobility: Rolling: Maximal Assistance to Right;Maximal Assistance to Left Supine to Sit: X 2;Total Assistance with HOB in semi-fowlers position Sit to Supine: X 2;Total Assistance Gait: Weight Bearing Status: (flaccid R UE/LE. R LE ?? contracture, tightness, poor ability to attain full knee extension.) Balance: Balance Scales/Tests Used: Sitting: Static/Dynamic Sitting - Static: Poor Sitting - Dynamic: Poor Pt has poor awareness of midline, pushing with R to L. Forward head, not able to hold head in midline upright. ACTIVITY TOLERANCE: Patient's activity tolerance: fair. TREATMENT/INTERVENTIONS: bed mobility training, balance activities and posture. Modified Caribou: Current Modified Rohan Score: 5 AM-PAC 6 Clicks Mobility Raw Score:: 7 EDUCATION: While performing PT, Patient was instructed in:functional mobility training, safety awareness/fall precautions , home exercise program, discharge planning, progression. Presented to patient who demonstrates Fair understanding of instructions given. ASSESSMENT: Patient would benefit from additional Physical Therapy sessions to achieve the following functionalgoals to enhance independence. pt sat at EOB approx 10 min, for balance, midline awareness. L side awareness. Short Term Goals: Patient will perform bed mobility??with maximal assist and X 1 Patient will transfer sit to/from stand??with moderate assist and X 2 Patient will transfer bed to/from chair??with moderate assist and X 2 Patient will demonstrate sitting balance of Poor plus x 10 minutes. Etl Bi Developer Goal(s): Patient to discharge to appropriate next level of inpatient care. INFORMED CONSENT TO TREATMENT: Plan of care is discussed but patient with questionable understanding. Plan: Patient continues to benefit from skilled therapy services. If patient is discharged from the facility, this note serves as a discharge summary if further physical therapy visits did not occur. Refer to filed flowsheet for further details. Following therapy session, patient left in bed, with call light within reach. * Lawanda Rodriguez RN - 10/20/2022 8:22 PM CDT Patient arrived to unit via patient transport at 1845.. Patient A/Ox4. Incontinent of bowel and bladder. Patient had BM upon arrival to unit. Total assist of 2-3 for cleaning and turning. Left arm and left leg flaccid. Skin assessment completed with NOC RN. Patient had second BM at shift change. Patient cleaned and turned with 3 assist. Bilateral boots and SCD's placed. * Earline Hutton RN - 10/20/2022 6:34 PM CDT Pt transferred to S. * Earline Hutton RN - 10/20/2022 5:57 PM CDT Report given to Lawanda MARCIAL on 6SB. * Karina Shipman OT - 10/20/2022 3:45 PM CDT [facility] Occupational Therapy Progress Note Patient: Esperanza Chaparro Med Record Number: [id number] Date of : 1955 Age: [age] year old PPE worn by staff: gloves;mask - procedural PPE worn by patient: gown - patient, clean Co-Treatment with PT 2/2 level of skilled assist required. Recommendations: Discharge OT Discharge Recommendations: Patient would benefit from intensive 3-hour multidisciplinary therapy This recommendation is made due to ongoing intensive OT functional needs: patient demonstrates a significant functional decline and would benefit from skilled therapy intervention to restore function Nurse and Physical Therapy contacted regarding patient status and/or discharge plan. Activity Level: as tolerated PRECAUTIONS: Weight Bearing Status: Lower Extremity;Upper Extremity Weight Bearing: WBAT SUBJECTIVE: Subjective: Pt agreeable to therapy. Pain Assessment: Pain Location #1 Pain Scale/Observation: Numeric (0-10) Pain Rating Score #1: 8 Pain Location : Nose (NG tube) Pain Orientation: Left;Right Pain Intervention(s): Non-pharmacological Non-pharmacological interventions: Rest;Reposition;Distraction;Emotional Support Behaviors/Assumed Pain Present : Calm OBJECTIVE: At start of therapy session, patient found in bed and with bed alarm on General Appearance: Pt supine in bed, NAD. LDA: IV's: Peripheral line, External Catheter and NG/Dobbhoff Vitals: Observations: Pt without signs or symptoms of distress during session. Mental Status/Cognition: Level of Consciousness-Adult: Alert Orientation Level: Oriented to Person;Oriented to Place;Oriented to Time Cognition: Follows Commands-inconsistent;Judgement-decreased;Safety awareness-decreased;Processing-Appropriate;Attention/concentration-decreased Attention Span: Difficulty attending to directions Following Commands: Follows one step commands with repetition/cues (inconsistently) Safety Judgement: Decreased awareness of need for safety Awareness of Errors: Decreased awareness of deficits Problem Solving: Assistance required to generate solutions;Assistance required to identify errors made;Assistance required to implement solutions Mobility: Bed Mobility: Rolling: Maximal Assistance to Right;Maximal Assistance to Left (Assist X2 to the right) Supine to Sit: Total Assistance;X 2 with HOB in semi-fowlers position Sit to Supine: Total Assistance;X 2 Transfers: Sit to Stand: (Not completed this date 2/2 poor sitting balance) Balance: Balance Scales/Tests Used: Sitting: Static/Dynamic;Standing: Static/Dynamic Sitting - Static: Poor (L lateral retropulsion sitting EOB) Sitting - Dynamic: Poor Activities of Daily Living: Feeding: Moderate Assistance (at 90 degree angle, with chin tuck, and supported sitting in bed using R hand to manipulate utensils/cup) Oral Facial Hygiene: Stand By Assist (To wash face while in supported sitting in bed) Upper Body Dressing: Maximal Assistance (To doff/don gown while sitting upright in bed in supportedsitting) Toileting: Total Assistance (Pt incontinent of BM and requires total assistance for hygiene) ACTIVITY TOLERANCE: Patient's activity tolerance: poor. Modified Caribou: Current Modified Caribou Score: 5 AM-PAC 6 Clicks Daily Activity Raw Score:: 8 TREATMENT/INTERVENTIONS: ADL training Endurance training Bed mobility Safety awareness EDUCATION: While performing OT, Patient was instructed in:functional mobility training, self-care training, safety awareness/fall precautions , discharge planning, use of call light Presented to patient who demonstrates Fair understanding of instructions given. INFORMED CONSENT TO TREATMENT: Plan of care is discussed but patient with fair understanding. ASSESSMENT: Patient continues to benefit from skilled Occupational Therapy to achieve the following functional goals. Short Term Goals: Goal Formation With patient Cognition:?2 step commands and 100% of the time Patient will increase orientation to?time and situation Patient will perform grooming??at edge of bed and with moderate assist Patient will transfer to bedside commode??with moderate assist and X 2 Prison Goal(s): Patient to discharge to appropriate next level of inpatient care Plan: Patient continues to benefit from skilled therapy services., Continue with goals as established. If patient is discharged from the facility, this note serves as a discharge summary if further occupational therapy visits did not occur. Refer to filed flowsheet for further details. Following therapy session, patient left in bed, with bed alarm on , with call light within reach, with RN, Earline gomes, and PT Kelly in room. * Carol Akins, PT - 10/20/2022 3:45 PM CDT [facility] Physical Therapy Progress Note Patient: Esperanza Chaparro Med Record Number: [id number] Date of : 1955 Age: [age] year old Co-tx with OT due to skilled level of assist PPE worn by staff: gloves;mask - procedural Recommendations: Discharge PT Discharge Recommendations: Patient would benefit from intensive 3-hour multidisciplinary therapy This recommendation is made due to ongoing intensive PT functional needs: patient has the need for more than one skilled therapy service;functional mobility is significantly below baseline;patient has the ability to progress and demonstrate measurable gains as a result of skilled therapy SUBJECTIVE: Subjective: Pt agreeable to PT Pain Assessment: Pain Location #1 Pain Scale/Observation: Numeric (0-10) Pain Rating Score #1: 8 Pain Location : Nose (NG tube) Pain Orientation: Left;Right Pain Intervention(s): Non-pharmacological Non-pharmacological interventions: Rest;Reposition Behaviors/Assumed Pain Present : Calm PRECAUTIONS: Weight Bearing Status: (no restrictions) Activity Level: Activity as Tolerated OBJECTIVE: At start of therapy session, patient found in bed and with bed alarm on General Appearance: Adult male in bed, leaning heavily to the L LDAs: IV's: Peripheral line, NG/Dobbhoff and Male external catheter Vitals: (*Assess the 3 levels of oxygen saturations both for room air and 02 unless rest on room air is 88% or less). Observations: pt has no signs of distress throughout session Mental Status/Cognition: Level of Consciousness-Adult: Alert Orientation Level: Disoriented to Person;Disoriented to Place;Disoriented to Time Cognition: Follows Commands-inconsistent;Processing-delayed;Judgement-decreased;Safety awareness-decreased Attention Span: Difficulty attending to directions Following Commands: Follows one step commands with repetition/cues Mobility: A gait belt and non-slip socks were used for all out of bed activity this date. Bed Mobility: Rolling: Maximal Assistance to Left;Maximal Assistance to Right (Max A x2 to R) Supine to Sit: Total Assistance;X 2 with HOB in semi-fowlers position Sit to Supine: Total Assistance;X 2 Transfers: Sit to Stand: (unable to attempt due to poor sitting balance) Gait: Weight Bearing Status: (no restrictions) Distance Ambulated: 0 FEET Balance: Balance Scales/Tests Used: Sitting: Static/Dynamic Sitting - Static: Poor (pt with left retropulsion) Sitting - Dynamic: Poor ACTIVITY TOLERANCE: Patient's activity tolerance: fair. TREATMENT/INTERVENTIONS: strengthening exercises, coordination exercises, bed mobility training, balance activities and cognitive stimulation Modified Caribou: Current Modified Caribou Score: 5 AM-PAC 6 Clicks Mobility Raw Score:: 8 EDUCATION: While performing PT, Patient was instructed in:functional mobility training, safety awareness/fall precautions , home exercise program, stroke education and precautions, discharge planning, use of call light Presented to patient who demonstrates Fair understanding of instructions given. ASSESSMENT: Patient would benefit from additional Physical Therapy sessions to achieve the following functionalgoals to enhance independence. Short Term Goals: Goal Formation With patient Patient will perform bed mobility??with maximal assist and X 1 Patient will transfer sit to/from stand??with moderate assist and X 2 Patient will transfer bed to/from chair??with moderate assist and X 2 Patient will demonstrate sitting balance of Poor plus x 10 minutes ?? Prison Goal(s): Patient to be independent with functional mobility and self-care and should be able to safely discharge to prior level of care. INFORMED CONSENT TO TREATMENT: Plan of care including recommended therapy, goals and frequency, discussed with patient who understands and agrees to proceed. Equipment Issued: none Plan: Patient continues to benefit from skilled therapy services., Continue with goals as established. If patient is discharged from the facility, this note serves as a discharge summary if further physical therapy visits did not occur. Refer to filed flowsheet for further details. Following therapy session, patient left in bed, with bed alarm on , with call light within reach, with RNEarline aware. * Ngoc Dickerson - 10/20/2022 2:45 PM CDT Supervisor Multifocal Lens visited patient to check in on needs and introduce pastoral care. Patient shared parts of his life, including his world view that life is about putting yourself first because the second youget anything people are going to try to steal it from you and that stress is life. Supervisor Multifocal Lens listened to patient narrate difficult life experiences and attempted to provide support. Patient shared frustration with being in hospital and physically uncomfortable. Supervisor Multifocal Lens offered prayer but patientdeclined, stating that he is not holiness.Patient informed unmanned equipment operator that he is anticipating being discharged today, and unmanned equipment operator expressed hope that he would find more peace at home. 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 S/p tnk at [facility] and intubated due to respiratory distress. Angiogram on 01/2022 shows R ICA occlusion. Admitted to NeuroICU. MRI with right MCA and SHEA cortical infarcts of the same acute age. ?? 10/15: EEG with no epileptiform discharges. Patient extubated successfully this AM ?? 10/16: Repeat CTH with slight increase in MLS. ?? 10/17: Repeat CTH no significant difference from prior. Transfer to floor orders placed afterwards. Interval History: Patient had concerns about lower back and rib pain resolved with lidocaine patch. Otherwise, pt hadc/o feeling very thirsty and kin feeling dry. Labs also concerning for dehydration so started on LRinfusion this AM. Objective Patient Vitals for the past 24 hrs: BP Temp Temp src Pulse Resp SpO2 Weight 10/20/22 1210 129/48 -- -- 53 16 95 % -- 10/20/22 1117 -- -- -- 48 16 100 % -- 10/20/22 1112 -- -- -- 60 16 96 % -- 10/20/22 0759 135/64 98.1 ??F (36.7 ??C) Oral 53 16 99 % -- 10/20/22 0610 -- -- -- 53 16 99 % -- 10/20/22 0543 -- -- -- -- -- -- 126.1 kg (278 lb) 10/20/22 0316 139/60 98.4 ??F (36.9 ??C) Oral 45 16 100 % -- 10/20/22 0033 -- -- -- 48 16 98 % -- 10/20/22 0025 142/63 98.6 ??F (37 ??C) Axillary 48 20 98 % -- 10/19/22 1954 163/63 98.9 ??F (37.2 ??C) Oral 41 16 99 % -- 10/19/22 1648 143/61 98.4 ??F (36.9 ??C) Oral 57 -- 96 % -- 10/19/22 1639 -- -- -- 55 18 98 % -- Intake/Output Summary (Last 24 hours) at 10/20/2022 1434 Last data filed at 10/20/2022 0810 Gross per 24 hour Intake 1596 ml Output 2150 ml Net -554 ml Exam: Cortical Function Mental Status Awake, alert, follows commands Orientation Person, place, time, and situation Language Dysarthria +nt, comprehension intact, repetition intact Visual Orozco Intact bilaterally to confrontation Neglect No visual neglect noted, no tactile neglect noted Cranial Nerves II Pupils 3 mm and bilaterally reactive to light. Fundoscopic exam not performed. VIII Hearing is intact bilaterally to finger rub. III/IV/ Extraocular muscles intact. No diplopia, ptosis, nystagmus or convergence abnormalities noted. IX/X Palate elevated symmetrically without phonation abnormalities noted. V Facial sensation symmetric to light touch and intact bilaterally. Corneal reflex not examined. XIHead turning and shoulder shrug are intact on right but decreased on left. VII Mild left facial droop noticed. XII Tongue is midline with normal movements and no atrophy noted. Motor Function Movement No abnormalities noted Bulk No abnormalities noted Tone No abnormalities noted Proximal Upper Distal Upper Proximal Lower Distal Lower Right 5/5 5/5 5/5 5/5 Left 1/5 1/5 1/5 1/5 Sensory Light Touch Symmetric and intact bilaterally Noxious Stimuli Symmetric and intact bilaterally Temperature Not tested Pallesthesia Not tested Cerebellar FNF RON HKS Right Intact Deferred Deferred Left Intact Deferred Deferred Gait Deferred Labs: Recent Labs Component Name 10/19/22230110/18/22230010/18/22 0155 WBC 9.5 9.8 9.1 RBC 3.58* 3.67* 3.77* HGB 10.4* 10.8* 11.0* HCT 32.1* 32.3* 33.8* Recent Labs Component Name 10/19/22230110/18/22230010/18/22 0157 NA 153* 146* 147* CL 120* 115* 117* CO2 27 25 23 BUN 40* 37* 40* CREATININE 1.06 1.01 1.07 CALCIUM 9.4 9.2 9.0 No results for input(s): MG in the last 32305 hours. Recent Labs Component Name 10/19/22230110/18/22 23010/18/22 0157 PHOS 3.6 3.2 2.9 Recent Labs Component Name 10/12/22202001/19/22 0948 12/11/21 1227 PT 13.8 12.4 13.0 INR 1.1 0.9 1.0 PTT - - 35.2 No results for input(s): A1C in the last 48681 hours. Recent Labs Component Name 10/14/22 0118 10/13/22 0228 12/12/21 0205 CHOL - 148 188 HDL - 40* 33* LDLCALC - 85 112* TRIG 200* 117 216* Recent Labs Component Name 10/16/22 0029 TSH 1.008 Recent Labs Component Name 12/13/21 0301 12/12/21 1229 12/12/21 0205 TROPONINI 0.046* 0.039* 0.042* FL SWALLOWING FUNCTION STUDY Result Date: 10/19/2022 PROCEDURE: FL SWALLOWING FUNCTION STUDY, DATE/TIME OF EXAM: 10/19/2022 8:12 AM, LOCATION [facility] INDICATION: R13.10: Dysphagia, unspecified type ADDITIONAL CLINICAL INFORMATION: Ordering Provider Reason For Exam: further swallow function eval per speech therapist Technologist Note: Additional: COMPARISON: None. FLUOROSCOPY TIME: 203 seconds TECHNIQUE: Modified barium swallow fluoroscopy performed in conjunction with speech pathology staff. The speech pathologist administeredvarying thickness barium liquids and solids under direct Cine fluoroscopy. FINDINGS/IMPRESSION: Fluoroscopic assistance was provided for a modified barium swallow test performed by Speech Therapy. Please see the Speech Therapy report for details. Report dictated by Jacobo Gupta MD (residential tech). I, Adiel Lynn MD have personally reviewed and interpreted this examination/study. > Interpreting Provider: Adiel Lynn MD on 10/19/2022 12:[address] HEAD WO CONTRAST Result Date: 10/17/2022 PROCEDURE: CT HEAD WO CONTRAST, DATE/TIME OF EXAM: 10/17/2022 3:17 AM, LOCATION [facility] INDICATION: R53.1: Weakness ADDITIONAL CLINICAL INFORMATION: Ordering [...] of encephalomalacia is again seen in the lateralright occipital lobe, grossly unchanged compared to the [...] is mild paranasal sinus disease. The nasal septumis deviated to the left with a septal [...] Persistent cytotoxic edema, grossly similar to the priorhowever, there has been interval increased conspicuity of the infarcts compared to prior, compatible with expected interval evolution. 2.Persistent local mass effect and effacement of the right lateral ventricle. Similar or slightly decreased [id number] midline shift as outlined above. 3.No evidence of hemorrhagic transformation. > Dictated by Miguel Escamilla MD (residential tech). ISundar MD have personally reviewed and interpreted this examination/study. > Interpreting Provider: Sundar Devine MD on 10/17/2022 4:50 PM XR ABDOMEN KUB PORTABLE Result Date: 10/16/2022 PROCEDURE: XR ABDOMEN KUB PORTABLE, DATE/TIME OF EXAM: 10/16/2022 12:55 PM, LOCATION [facility] INDICATION: I63.9: Ischemic stroke ([facility]HCC) ADDITIONAL CLINICAL INFORMATION: Ordering Provider Reason For Exam: NG tube placement verification COMPARISON: Abdominal radiograph 10/13/2022 FI NDINGS/IMPRESSION: *Enteric tube courses below the diaphragm with the distal tip superimposing the antropyloric region. *Mild gaseous dilation of the small bowel and colon is partially visualized, similar in appearance to prior. Report dictated by Oscar Santizo MD (residential tech). Ranjit Orourke MD have personally reviewed and interpreted this examination/study. > Interpreting Provider: Ranjit Nunez MD on 10/16/2022 5:[address] HEAD WO CONTRAST Result Date: 10/16/2022 PROCEDURE: CT HEAD WO CONTRAST, DATE/TIME OF EXAM: 10/16/2022 3:55 AM, LOCATION [facility] INDICATION: R53.1: Weakness ADDITIONAL CLINICAL INFORMATION: Ordering Provider Reason For Exam: assessing cerebral edema COMPARISON: CT head without contrast from 10/14/2021. MRI brain without contrast from 10/14/2022. EXAMINATION: Computed tomography (CT) of the head without contrast TECHNIQUE:CT of the head was performed without contrast according to standard protocol. CT dose reduction technique was used, including Automated Exposure Control FINDINGS: Fracture present on multiple images significantly limiting this study. There is extensive decreased attenuation involving most of the right cerebral hemisphere consistent with evolving acute infarction in the distributions of portions of the middle and anterior cerebral arteries. There is no definite hemorrhagic transformation. Mass effect is produced with approximately 5.7 mm of midline shift right to left. There is some compression of the right lateral ventricle and effacement of the left lateral and third ventricles. There is no evidence of ventricular dilatation. Small cortical infarcts are noted in the left cerebellar hemisphere Patchy decreased attenuation is noted within the white matter of the left cerebral hemisphere l ikely related to small vessel disease in a patient of this age. Bone window images demonstrate no evidence of definite calvarial fracture or bone destruction When today's study is compared to a previous dated 14 October 2022 there is been further evolution of the extensive areas of infarction in the right cerebral hemisphere with greater mass effect and midline shift right to left. IMPRESSION: Motion artifact significantly limiting this study. 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 Clinical correlation and continued close follow-up are recommended. 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 Findings consistent small vessel disease in the left cerebral hemisphere. The preliminary results of this study were discussed byDr. Cleveland with the patient's care provider, Dr. Brannon on, 16 October 2022 at 0534 hours with read back confirmation and verification. Report dictated by Romain Mckee MD, PhD (residential tech). I, Arnav Lock MD have personally reviewed and interpreted this examination/study. > Interpreting Provider: Arnav Lock MD on 10/16/2022 1:21 PM ECHO TRANSTHORACIC W BUBBLE STUDY Result Date: 10/15/2022 ??? Left??Ventricle: Left ventricle is mildly dilated. Normal systolic function. EF by 2D Ayala biplane is 61%. Regional wall motion abnormalities present. See diagram for wall motion findings. Normal diastolic function. ??? Left??Atrium: No interatrial septum shunt present viewable with agitatedsaline. CT HEAD WO CONTRAST Result Date: 10/14/2022 PROCEDURE: CT HEAD WO CONTRAST DATE/TIME OF EXAM: 10/14/2022 10:36 AM CLINICAL INFORMATION: None relevant/not provided if blank. Indication: R53.1: Weakness Additional History: COMPARISON: MRI brain 10/14/2022, CT head 10/13/2022 TECHNIQUE: Noncontrast CT brain was performed utilizing standard protocol. CT dose reduction technique was used, including Automated Exposure Control. FINDINGS: Interval increase in the confluent hypodensity involving the right frontal parietal and temporal lobes right MCA territory and also in the right SHEA territory consistent with known acute evolving infarct. There is localized mass effect with effacement of the sulci. No significant midline shift. Chronic infarct inthe right occipital lobe. Previously noted minimal petechial hemorrhages on MRI are not conspicuouson this study could be secondary to technique. Minimal mass effect on the right lateral ventricle. Mild interval decrease in the caliber of right lateral ventricle compared to the prior study. Mild interval decrease in the caliber of ventricles compared to prior study could be secondary to edema. For example third ventricle previously measured 8 mm now measures about 6 mm. Basilar cisterns are patent. No evidence of transtentorial or tonsillar herniation. Redemonstration of expansile lesion invo lving the the clivus No interval change in the expansile soft tissue lesion along the left lateral aspect of the sella with the thinning of the bone, unchanged compared to study from 12/11/2021 with the T2 hyperintensity on MRIs could be secondary to benign lesions like mucoceles however no postcontrast imaging is available for accurate characterization. Otherwise no acute osseous abnormality. Bilateral cataract replacement. IMPRESSION: 1. Redemonstration of large confluent evolving acute infarction in the right MCA territory and right SHEA territory involving most of the right cerebral hemisphere with local mass effect. No significant midline shift or evidence of herniation. No large hematoma however minimal petechial hemorrhages cannot be excluded. > Interpreting Provider: Re Sage MD on 10/14/2022 4:40 PM MRI BRAIN WO CONTRAST Result Date: 10/14/2022 PROCEDURE: MRI BRAIN WO CONTRAST, DATE/TIME OF EXAM: 10/14/2022 12:00 AM, LOCATION [facility] INDICATION: R53.1: Weakness ADDITIONAL CLINICAL INFORMATION: Ordering Provider Reason ForExam: Acute ischemic stroke EXAMINATION: Magnetic resonance imaging [...] basal ganglia, including putamen and caudate nuclei. Thisbelong to the right SHEA and MCA territory. [...] Encephalomalacia/gliosis is seen in the region of rightsuperior frontal lobe (series 9 image 19) and right temporoparietal region (series 9 image 10). Thecorpus callosum and sella appear normal. The posterior fossa, brainstem, and craniocervical junction appear normal. Other than bilateral cataract extractions, the visualized portions of the orbits appear grossly unremarkable. There is mild paranasal sinus disease. There is mild opacification in themastoid air cells, left more than right. The patient is intubated. Fluid and retained secretions inthe nasopharynx. The calvarium and visualized cervical spine [...] verification. Report dictated by Miguel Escamilla MD (residential tech) I, Sundar Devine MD have personally reviewed and interpreted this examination/study. > Interpreting Provider: Sundar Devine MD on 10/14/2022 1:12 PM XR ABDOMEN KUB PORTABLE Result Date: 10/14/2022 PROCEDURE: XR ABDOMEN KUB PORTABLE, DATE/TIME OF EXAM: 10/13/2022 10:23 PM, LOCATION [facility] INDICATION: R13.10: Dysphagia, unspecified type ADDITIONAL CLINICAL INFORMATION: Ordering Provider Reason For Exam: OG tube placement COMPARISON: Abdominal radiograph 10/13/2022 at 10:52 AM FINDINGS/IMPRESSION: Enteric tube courses below the diaphragm with the distal tip superimposing thegastric body. Partially imaged colonic gaseous distention, increased from the prior exam. Report dictated by Oscar Santizo MD (residential tech). I, CEDRIC FLORES MD have personally reviewedand interpreted this examination/study. > Interpreting Provider: CEDRIC FLORES MD on 10/14/2022 7:[address] HEAD NON CONTRAST Result Date: 10/13/2022 EXAM: CT HEAD WO CONTRAST, DATE/TIME OF EXAM: 10/13/2022 8:29 PM, LOCATION: [facility] HISTORY: R53.1: Weakness ADDITIONAL CLINICAL INFORMATION: Ordering Provider Reason For Exam: Post tPa imaging EXAMINATION: CT scan of the head without intravenous contrast TECHNIQUE: CT of the head was performed without intravenous contrast according to standard protocol. CT dose reduction technique was used, including Automated Exposure Control. COMPARISON: Head CTs 10/13/2022 at 1:07 AM and 10/12/2022. FINDINGS: See impression. IMPRESSION: 1.Further increased conspicuity of large areas of hypoattenuation with loss of goldman-white differentiation involving the right frontal, parietal, and temporal lobes in addition to the right insula, which is consistent with an evolving large acute infarct corresponding to the right middlecerebral artery (MCA) vascular territory. 2.Further increased conspicuity of a moderately-size areaof hypoattenuation with loss of goldman-white differentiation along the parasagittal right frontal lobe, consistent with an evolving large acute infarct corresponding to the right anterior cerebral artery (SHEA) vascular territory. 3.No evidence of hemorrhagic conversion, significant midline shift, brain herniation, or evidence of hydrocephalus. 4.Please refer to recently reported head CTs 10/12/2022 and 10/12/2022 for description of additional chronic findings. Results of this exam were verbally discussed by Dr. Zelda Willams with Dr. Brannon on 10/13/2022 at 9:02 PM for a Critical Stroke Protocol withreadback confirmation and verification. The images were reviewed by attending physician Dr. Zelda Willams prior to this communication. > Interpreting Provider: Zelda Willams MD, PhD on 10/13/2022 9:09 PM XR CHEST 1VW PORTABLE Result Date: 10/13/2022 PROCEDURE: XR CHEST 1VW PORTABLE, DATE/TIME OF EXAM: 10/13/2022 1:53 AM, LOCATION [facility] INDICATION: R06.00: Dyspnea, unspecified type ADDITIONAL CLINICAL INFORMATION: Ordering Provider Reason For Exam: ETT position COMPARISON: Chest x-ray 10/13/2022. FINDINGS/IMPRESSION: Endotracheal tube terminates at the level of thoracic inlet/mid thoracic trachea, approximately 7 cm above the cathi. A loop recorder superimposes the left chest. There is minimal basilar atelectasis. There is no focal consolidation, pleural effusion, or pneumothorax. The heart size is normal and mediastinal contours are normal. > Dictated by Noe Bravo MD (residential tech). Wen Orourke MD have personally reviewed and interpreted this examination/study. > Interpreting Provider: Wen Lee MD on 10/13/2022 2:16 PM XR CHEST 1VW PORTABLE Result Date: 10/13/2022 EXAMINATION: XR CHEST 1VW PORTABLE HISTORY: E87.29: Respiratory acidosis COMPARISON: Chest radiograph 10/13/2022 at 1:46 AM FINDINGS/IMPRESSION: Lines: *Endotracheal tube terminates within the mid thoracic trachea. *A loop recorder is partially visualized superimposing the left chest. Aside from mildbibasilar atelectasis, there is no confluent consolidation. No pleural effusion is seen. No pneumothorax is identified. The cardiac silhouette is within normal limits. Aortic atherosclerosis is noted. The superior mediastinal contours are within normal limits. No acute osseous abnormality is identified. Report dictated by Oscar Santizo M.D. (residential tech) 10/13/2022 7:05 AM CEDRIC Orourke MD have personally reviewed and interpreted this examination/study. > Interpreting Provider: CEDRIC FLORES MD on 10/13/2022 2:14 PM XR ABDOMEN KUB PORTABLE Result Date: 10/13/2022 PROCEDURE: XR ABDOMEN KUB PORTABLE, DATE/TIME OF EXAM: 10/13/2022 11:01 AM, LOCATION [facility] INDICATION: R53.1: Weakness ADDITIONAL CLINICAL INFORMATION: Ordering Provider Reason For Exam: MRI COMPARISON: None. TECHNIQUE: Supine frontal radiograph of the abdomen. FINDINGS: A looprecorder overlies the left axilla. No evidence of retained metallic density foreign bodies within the abdomen. The urinary bladder is opacified with contrast material. Moderate gas and stool are present. There are no findings to suggest bowel obstruction, free intraperitoneal gas or pneumatosis. Noabnormal calcifications are seen. No bone abnormality is seen. IMPRESSION: 1.A loop recorder overlies the left axilla. No evidence of retained metallic density foreign bodies within the abdomen. 2.Nonobstructive bowel gas pattern. Report dictated by Oscar Santizo M.D. (residential tech) 10/13/2022 11:03 AM IAdiel MD have personally reviewed and interpreted this examination/study. > Interpreting Provider: Adiel Lynn MD on 10/13/2022 1:03 PM XR CHEST 1VW PORTABLE Result Date: 10/13/2022 EXAMINATION: XR CHEST 1VW PORTABLE HISTORY: R06.00: Dyspnea, unspecified type E87.29: Respiratory acidosis COMPARISON: Chest radiograph 10/12/2022 FINDINGS/IMPRESSION: Lines: *Interval insertion of endotracheal tube which terminates in the proximal thoracic trachea, 6 cm from the cathi. *A loop recor manish superimposes the left chest. No confluent consolidation is noted. No pleural effusion is seen. No pneumothorax is identified. The heart is borderline enlarged. Aortic atherosclerosis is noted. The superior mediastinal contours are within normal limits. No acute osseous abnormality is identified. Report dictated by Oscar Santizo M.D. (residential tech) 10/13/2022 7:05 AM Adiel Orourke MD have personally reviewed and interpreted this examination/study. > Interpreting Provider: Adiel Lynn MD on 10/13/2022 11:[address] NECK SOFT TISSUE W CONT Result Date: 10/13/2022 PROCEDURE: CT NECK SOFT TISSUE W CONT, DATE/TIME OF EXAM: 10/13/2022 1:29 AM, LOCATION [facility] INDICATION: R06.00: Dyspnea, unspecified type ADDITIONAL CLINICAL INFORMATION: Ordering Provider Reason For Exam: Peritonsillar abscess Technologist Note: None. Additional: Per chart review, patient was difficult to intubate and multiple attempts were required. CONTRAST: IOPAMIDOL 76 % IV SOLN:75 mL EXAMINATION: Computed tomography (CT) of the neck with contrast TECHNIQUE: CT of theneck was performed following the uneventful administration of 75 mL Isovue-370 contrast according to standard protocol. CT dose reduction technique was used, including Automated Exposure Control. COMP ARISON: CT angiogram of the neck performed 10/30 [...] kenneth bullosa.. Paraseptal emphysema and lung scarring. IMPRESSION: 1.Findings concerning for right peritonsillar abscess with associated diffuse pharyngitis and extensive laryngeal edema, extending to the level of the supraglottic larynx, resulting in airway compromise status post endotracheal intubation. Preliminary findings were discussed with the patient's care provider, Dr. Brannon by Dr. Cleveland via telephone at 0248 on 10/13/2022 with readback comprehension and verification. > Dictated by Dean Cleveland M.D. (residential tech) Sundar Orourke MD have personally reviewed and interpreted this examination/study. > Interpreting Provider: Sundar Devine MD on 10/13/2022 10:[address] HEAD WO CONTRAST Result Date: 10/13/2022 PROCEDURE: CT HEAD WO CONTRAST, DATE/TIME OF EXAM: 10/13/2022 1:26 AM, LOCATION [facility] INDICATION: I63.9: Ischemic stroke (CMS/HCC) EXAMINATION: Computed tomography (CT) of the head without contrast ADDITIONAL CLINICAL INFORMATION: Ordering Provider Reason For Exam: Acute respiratory distress. R/o central causes Technologist Note: None. Additional: None. TECHNIQUE: CT of the head was performed without contrast according to standard protocol. CT dose reduction technique was used, including Automated Exposure Control. COMPARISON: CT of the head from 10/12/2022. FINDINGS: No acute intra- or extra-axial fluid collections are identified. There is mild cerebral volume loss with associated ex vacuo ventricular dilatation. The basilar cisterns are patent. No significant mass effect or midline shift is seen. There has been interval mild diffuse but subtle hypoattenuation and loss of orozco-white matter differentiation involving larger portions of the right frontal and right temp oral lobes as well as the right insula, and possibly posterior lateral temporal lobes which could represent acute evolving acute right MCA territory infarcts. MRI of the brain is recommended for further evaluation. Additional subtle hypoattenuation along the parasagittal right frontal lobe is also noted. Redemonstration of chronic infarcts with areas of encephalomalacia and gliosis in the right frontal and right parietal as well as the right occipital lobes compatible with chronic right MCA, SHEA, and BOARD MEMBER territory infarcts. Additional tiny lacunar infarcts in the bilateral cerebellar hemispheres are again noted. Periventricular white matter hypoattenuation is indicative of chronic small vess el ischemic disease. There is vascular calcification of the carotid siphons. No acute calvarial fracture is identified. Other than bilateral cataract extractions, the orbits appear normal. There is mild paranasal sinus disease. Opacification of the nasal passages and the nasopharynx. The patient is intubated. The mastoid air cells are grossly clear. Calcific densities along the left frontal scalpare again noted. No soft tissue abnormality is otherwise identified. IMPRESSION: 1.Suggestion of interval diffuse edema in the right MCA territory concerning for evolving right MCA territory ischemia. MRI of the brain is recommended for further evaluation.. 2.Additional chronic findings as outlined above. Results of this exam were communicated with closed loop confirmation to Dr. Mendenhall by Dr. Devine on 10/13/2022 at 9:54 AM with read back compression and verification. Report dictated by Romain Mckee MD, PhD (residential tech). ISundar MD have personally reviewed and interpreted this examination/study. > Interpreting Provider: Sundar Devine MD on 10/13/2022 10:21 AM XR CHEST 1VW PORTABLE Result Date: 10/13/2022 EXAMINATION: XR CHEST 1VW PORTABLE HISTORY: R53.1: Weakness COMPARISON: Chest radiograph dated 12/11/2021 FINDINGS/IMPRESSION: Lines: *A loop recorder superimposes the left chest. No confluent consolidation is noted. No pleural effusion is seen. No pneumothorax is identified. The heart is enlarged for this AP view. Aortic atherosclerosis is noted. The superior mediastinal contours are within normallimits. No acute osseous abnormality is identified. No free air is seen under the diaphragm. > Interpreting Provider: CEDRIC FLORES MD on 10/13/2022 6:[address] ANGIO BRAIN NECK STROKE Result Date: 10/12/2022 EXAM: CT ANGIO BRAIN NECK STROKE, DATE/TIME OF EXAM: 10/12/2022 7:42 PM, LOCATION: [facility] HISTORY: Code Stroke EXAMINATION: CT angiogram images [...] right middle cerebral artery (MCA) via the [place] of [place]/patent anterior communicating artery. Diminished opacification of the right MCA M1 segment and distal branches with notable markedly diminutive opacification versus nonopacification of the MCA M3 segment and beyond. No occlusion or hemodynamical ly significant stenosis elsewhere of the major intracranial arteries. Patent intracranial left ICA,left MCA, bilateral ACAs, vertebral artery V4 segments, [...] ARTERIES: No occlusion or hemodynamically significant stenosis. Noevidence of dissection. OTHER: Partially imaged lung apices [...] the right SHEA and MCA via the [place] of [place]vizu. Diminished opacification of the right [...] communication. Report dictated by Gilbert Morrow MD (residential tech). I, Zelda Willams MD, PhD have personally reviewed and interpreted this examination/study. > Interpreting Provider: Zelda Willams MD, PhD on 10/12/2022 8:[address] BRAIN - Stroke Result Date: 10/12/2022 EXAM: CT BRAIN STROKE, DATE/TIME OF EXAM: 10/12/2022 7:32 PM, LOCATION: [facility] HISTORY: Code Stroke EXAMINATION: CT scan of [...] PARENCHYMA: No acute parenchymal hemorrhage. Apparent hypodensity ofthe right anterior temporal lobe and insular region, which is nonspecific and may be attributable to motion artifact or possibly representing areas of evolving acute infarct. No mass effect, midline shift, or brain herniation. Re-demonstrated areas of encephalomalacia involving the right frontal and right parietal lobes, consistent with chronic infarcts involving the right middle cerebral artery ( MCA) vascular territory and right anterior cerebral artery (SHEA)/MCA watershed territory. Re-demonstrated area of encephalomalacia involving the right occipital lobe, consistent with a chronic infarct involving the right posterior cerebral artery (BOARD MEMBER) vascular territory. Multiple small chronic lacunes of [...] tissues. Mildly expansile soft tissue lesion of tto-ro-pkesfnvhmm of the sella turcica measuring 2.1 x 1.6 cm (09/03), which is associated with thinning of thedorsum sellae and is incompletely assessed on this [...] infarct. Recommend follow-up brain MRI without contrast forfurther evaluation. 3.Multiple chronic infarcts of the right [...] contrast. Results of this exam were verbally discussedby Dr. Zelda Willams with Dr. Brannon on 10/12/2022 at 7:44 PM for a Critical Stroke Protocol with readback confirmation and verification. The images were reviewed by attending physician Dr. Zelda Willamsprior to this communication. > Interpreting Provider: Zelda Willams MD, PhD on 10/12/2022 8:20 PM Ischemic stroke (CMS/HCC) (POA: Yes) Carotid occlusion, right (POA: Yes) Carotid stenosis, left (POA: Yes) Weakness (POA: Unknown) Coronary artery disease (POA: No) JAMES (obstructive sleep apnea) (POA: Yes) COPD (chronic obstructive pulmonary disease) (CMS/HCC) (POA: Unknown) Stage 3 chronic kidney disease (CMS/HCC) (POA: Unknown) Peritonsillar abscess (POA: Yes) Dyspnea (POA: Yes) Respiratory acidosis (POA: Yes) Hx of completed stroke (POA: Yes) DM2 (diabetes mellitus, type 2) (CMS/HCC) (POA: Yes) Primary hypertension (POA: Yes) Smoker (POA: Yes) Assessment Esperanza Chaparro is a 67 year old male presenting 10/12 from [place] for left sided hemiparesis. CTH with acute on chronic infarcts. CTA with chronic right ICA complete occlusion identified on Cerebral Angiogram in 01/2022. S/p TNK but MT not pursued due to low ASPECT score. MRI with right frontal, parietal,and temporal lobes consistent with known infarct in right MCA and SHEA territories with no hemorrhagic transformation. Mechanism is large artery. Flow failure possible given distribution and appearance of lesions on MRI, and also in the setting of infection which was being treated at [place]. Proximal ordistal stump syndrome can also be considered but less likely given both MCA and SHEA involvement. Stroke Type: Ischemic Stroke Mechanism: Large Artery: Flow failure vs. Carotid stump styndrome Plan R SHEA/MCA Territory Infarctions s/p tnk Chronic R ICA occlusion - Stroke workup complete - NSYG signed off for decompressive hemicraniectomy watch. - On aspirin 81 mg, Rosuvastatin 40 mg for secondary prevention - SBP goal 120-180 - Added plavix 75 mg qd to continue for 90 days (Starting 10/20) - If patient has future ischemic vascular injury, can consider switching to anticoagulation with Single antiplatelet therapy. - Disposition: Will transfer to [facility] today. Plan for acute rehab recommendation from PT/OT. ?? Blood Pressure Goals: SBP: 130-180 per NCC, 160 difficult to manage given BRYCE with oral antihypertensives. ?? Core Measures tPA administration: yes Anti-thrombotic: Aspirin 81 mg and plavix 75 mg Statin: Rosuvastatin 40 mg DVT prophylaxis: Subcutaneous heparin Swallow Evaluation: passed for thin liquid PT/OT Evaluation: acute rehab Smoking cessation; will cancer genetic counselor: pending ?? Individual Modifiable Risk Factors Hypertension: yes Hyperlipidemia: yes Diabetes: yes Atrial Fibrillation: no Tobacco: no ?? Diabetes plan of care based on A1c: Patient's A1c is equal to or greater than 6.5%. ?? For patients with diabetes (A1c >6.5%), SGLT-2 inhibitors or GLP-1 receptor agonists have been shown to reduce major adverse cardiovascular events. ??These medications require close follow up withPCP or yarn spinner and lab monitoring. Due to this reason, we have deferred treatment until outpatient follow up. Facility Manager Histology should be consulted to provide patient education. ??Patient will follow with PCP/Reconcilement Clerk after discharge for diabetes medications and continued disease management.? Additional Hospital Problems: ?? Dysphagia - Failed multiple pit crew support worker swallow evaluations but passed 10/19 -??Thin liquid diet per speech therapy recs - Continue NG feeds overnight since not taking good PO, will reassess need for it tomorrow - Encourage PO intake? Peritonsillar Abscess - Extubated 10/15 - Unasyn 7 day course completed 10/19. ?? Bradycardia First Degree AV Block - Holdoing home coreg - EKG on 10/12/2022 with First degree av block ?? T2DM - A1C 7.7% - Lantus 15 U q24hr - BG goal 140-180 ?? COPD -Hx smoking - Duonebs q4hr - Budesonide 500 mcg nebs qd ?? JAMES - consider Cpap ?? HTN - on Coreg 6.25 mg BID and Lisinopril 10 mg QD at home - Continue amlodipine 10 mg daily and Losartan 50 mg daily (increased Losartan dose from 25 to 50 mg today) ?? Hx CAD s/p stent: - Resumed home ASA - Resumed home Rosuvastatin 40 mg QD ?? HLD - Home Rosuvastatin 40 mg ? Case findings discussed with Dr. Khan, Stroke Attending. Kasandra Sultana MD Neurology Resident * Yahaira Mendenhall MD - 10/20/2022 2:10 PM CDT [facility] Transfer Checklist: Reasons for Transfer to [facility] stroke work up complete, pending acute rehab palcement Brief Hospital Course 67 yo M hx of right ICA occlusion and R MCA infarction and peritonsillar abscess initially presented to [place] ED 10/12 with somnolence, Left-sided hemiplegia, and right sided gaze deviation. S/p tnk at [facility], developed oral bleeding that resulted in difficult OR intubation due to respiratory distress. Angiogram on 01/2022 shows R ICA occlusion. Admitted to NeuroICU. MRI with right MCA and SHEA cortical infarcts. Pt did have peritonsillar abscess for while ENT was consulted. Attempted drainage but wereunsuccessful due to small size. S/p Unasyn x 7 days (EOT 10/19). Pt passed MBS swallow eval 10/19 andis currently working on increasing PO intake. Pertinent PMH: ischemic infarct in the right hemisphere (2/2 flow failure in the setting of right ICA occlusion see admission from December,), hypertension, hyperlipidemia, diabetes mellitus on oral antidiabetics, coronary artery disease s/p stenting, cigarette smoking, JAMES, and COPD Home Meds Being Held: - coreg due to bradycaria - ezetimibe and jardiance due to formulary - cabergoline ABx Indications/End Date: none Consult Teams Past and Present: ENT - due to peritonsillar abscess (signed off) ACC - due to difficult airway and intubation NSGY - hemicrani watch (signed off) Pending Workup: none, just working on increasing PO intake Things to Watch: - PO intake - blood sugar - decreased his lantus from 15U to 10U and has SSI, but has had poor PO intake and turning off tube feeds, so would keep close watch Disposition Place and Date: Acute Rehab Unit To Address Prior to DC: PO intake Follow Up Appointments: (Already arranged and need to arranged) Stroke follow up to be scheduled, referral placed in discharge orders To Address after DC (F/U etc): continue aspirin 81mg daily; plavix 75mg x total duration 90 days (ordered with end date); rosuvastatin 40mg daily Yahaira Mendenhall M.D. Neurology, PGY-3 Pager: 10/20/2022 * Marina Paige, RD/LD - 10/20/2022 12:15 PM CDT Nutrition Re-Assessment Brief Synopsis: Patient is at Nutrition Risk; Specific criteria can be found in assessment below Nutrition Plan: Pureed/DYS1; diet per ST recs +Ensure Plus High Protein (1.5 kcal) (350 kcal, 20 grams pro, 40 grams CHO) BID w/ meals RD to modify current TF order to be: Nocturnal (6pm-6am): *Note: this rate meets only 75% of estimated kcal needs and 80% of estimated protein needs to aid with increased intake during day. Jevity 1.5 at 80 ml/hr. Provides 1440 kcals, 61g protein, 206g CHO, and 730 ml free water. +150 ml free water flush q 4 hrs or per MD if not on additional fluids TF considerations: 1. Start at 20ml/h and increase by 10ml/h q4h until goal 2. Do not hold unless residuals >500 as recommended by ASPEN. 3. For critical care, If residuals >200, monitor for symptoms of intolerance. 4. Signs of intolerance include: lytes>NL, diarrhea, abdominal pain or distention. 5. Head of bed > 30?? Recommendations to Physician: See above Comments: Pt scheduled for reassessment. Noted pt currently on pureed/DYS 1 diet recs with thin liquids, per chart. PO intake 0% since diet advancement. Pt continues to receive TF of vital HP at 45 ml/hr. RD to modify order for nocturnal feeds to aid with appetite during day. See TF recs above. +BM3x in past 24 hrs; noted soft stool in documentation. Labs reviewed; Na [address] to increase FWF in TF to aid in promoting better hydration status. Will continue to monitor. Assessment: Med/Surg History and Clinical Diagnoses: PMH significant for CVA, HTN, HLD, DM, CAD s/p stenting, tobacco use, JAMES, and COPD, transferred to [facility] due to acute ischemic stroke, seen in consultation for concern for right peritonsillar abscess. CT neck obtained showing small right peritonsillar phlegmon. Height: 177.8 cm (5' 10 ) Weight: 126.1 kg (278 lb) BMI: Body mass index is 39.89 kg/m??. BMI Range: Severely Obese Class 2 IBW/lb (Calculated) Male: 166 , Recent Weights/Methods 10/12/2022 1926 10/13/2022 0348 10/14/2022 1100 10/16/2022 0400 10/17/2022 0400 10/18/2022 0545 10/19/2022 0615 10/20/2022 0543 Weight: 103 kg (227 lb) 106 kg (233 lb 11 oz) 105.7 kg (233 lb) 123 kg (271 lb 3.2 oz) 124.7 kg (275 lb) 127.1 kg (280 lb 4.8 oz) 127.9 kg (282 lb) 126.1 kg (278 lb) Weight Method (Utilize Scales): -- Bedscale -- Bedscale Bedscale Bedscale Bedscale Bedscale Wt Comments: reviewed, weight slightly down since yesterday -- likely due to excessive fluid loss Diet order accuracy Current diet order: Pureed (4) (DYS 1) Current tube feeding order: Vital HP at 45 ml/hr Nutrition recommendation: alter/change nutrition order P.O.Intake for the past 48 hrs: % Meal Taken Av % Min: 0 % Max: 0 % Food Allergies: No known food allergies GI Concerns: None Chewing/Swallowing: Other (Comment) (intubated) Pain affecting intake: No Estimated Needs: KCAL: [id number] (25-30 kcal/kg IBW) Protein (g): 76-91 (1.0-1.2 g/kg IBW) Fluid (ml): 1 ml/kcal Needs based on: Kcal/kg- (Comment) (IBW - 75.5kg) Recommended Access Route: PO;TF Laboratory values: Recent Labs Component Name 10/19/22230110/18/22230010/18/227 10/12/22202210/12/22202012/12/21 0205 12/11/21 1227 BUN 40* 37* 40* - 34* - 20 CREATININE 1.06 1.01 1.07 - 1.36* - 1.40* NA 153* 146* 147* - 135* - 135* POTASSIUM 4.2 4.3 4.3 - 5.2* - 4.4 CL 120* 115* 117* - 109* - 99 CO2 27 25 23 - 16* - 27 GLUCOSE 123* 220* 190* - 242* - 188* CALCIUM 9.4 9.2 9.0 - 9.1 - 9.7 PROT - - - - 7.2 - 7.2 ALB - - - - 3.5 - 3.7 TBILI - - - - 0.3 - 0.7 ALKPHOS - - - - 76 - 68 ALT - - - - 20 - 11 AST - - - - 14 - 13 ANIONGAP 10 10 11 - 15 - 13 BCR 38* 37* 37* - 25* - 14 OSMOLALITY 327* 317* 319* - 296 - 288 AGRATIO - - - - 0.9* - 1.1 EGFR 77* 82* 77* - 57* - 56* - = values in this interval not displayed. Medications: Current Facility-Administered Medications Medication ??? 0.9% NaCl injection 3 mL And ??? 0.9% NaCl injection 1-10 mL ??? 0.9% NaCl injection 3 mL And ??? 0.9% NaCl injection 3 mL ??? acetaminophen (Tylenol) tablet 650 mg Or ??? acetaminophen (Tylenol) suppository 650 mg ??? albuterol (Proventil;Ventolin) (5 MG/ML) 0.5% nebulizer solution 2.5 mg ??? albuterol-ipratropium (Duo-Neb) nebulizer solution 3 mL ??? amLODIPine (Norvasc) tablet 10 mg ??? artificial tears ophthalmic ointment ??? aspirin chew tablet 81 mg ??? atropine injection 1 mg ??? budesonide (Pulmicort) nebulizer suspension 500 mcg ??? clopidogrel (plaVIX) tablet 75 mg ??? dextrose 10 % IV bolus Or ??? dextrose 10 % IV bolus ??? glucagon (Glucagen) injection 1 mg ??? glucose (Diabetic Use) (Dex4 Glucose) oral liquid ??? glucose (Diabetic Use) oral gel ??? glucose chew tablet 4 tablet ??? heparin injection 5,000 Units ??? insulin glargine (Lantus) pen 10 Units ??? insulin lispro (HumaLOG;ADMelog) 100 UNIT/ML pen 0-24 Units ??? lactated ringers infusion ??? lidocaine (Lidoderm) 5 % patch 1 patch ??? losartan (Cozaar) tablet 50 mg ??? melatonin tablet 8 mg ??? nicotine (Nicoderm CQ) patch 21 mg ??? perflutren lipid microsphere (Definity) injection 0.5 mL ??? polyethylene glycol 3350 (Miralax) packet 17 g ??? rosuvastatin (Crestor) tablet 40 mg Skin/Wound: WDL Education needed: Stroke Nutrition Therapy Education Provided: Prior to Discharge Nutrition Care Process (1) Nutrition Diagnostic Statement: Inadequate protein-energy intake related to:: decreased ability to consume or tolerate adequate food and/or fluids due to illness as evidenced by:: estimated intake insufficient to meet requirements;oral intake less than .. Nutrition Diagnostic Statement Progress: Nutrition problem continues Nutrition Intervention: Meals and snacks:;Medical Food Supplements:;Enteral nutrition: Monitoring: GI, TF, PO intake, WT, labs, medications Evaluation: Nutrition Goal: Total intake will meet estimated nutrient needs Nutrition Goal Timeframe: Throughout stay Nutrition Goal Progress: Continue with current goal Marina Paige RD/MICHELA, [place] Ascom: [id number] * Jana Sanchez SLP - 10/20/2022 10:21 AM CDT [facility] Physical Medicine and Rehabilitation Swallow Treatment Patient: Esperanza Chaparro Med Record Number: [id number] Date of : 1955 Age: [age] year old PPE: PPE worn by staff: gloves PPE worn by patient: gown - patient, clean Impressions: ST reassessed swallow function at bedside with thin and puree. Pt was sitting w/ food tray at bedside and not sitting at 90* when ST entered. Bed does not incline to 90* so nsg helped ST prop Pt up to 90 [address] pillows*. ST discussed swallowing guidelines w/ acute care nurse practitioner Gema (sit 90*, 100% supervision, chin tuck, swallow twice, etc). Gema states understanding. Pt exhibited cough 2/10 trials with thins (when not using chin tuck) and 1/[address] recommends continued Puree (4)/DYS1 and thin liquids with supervision, meds crushed in puree, and cues to follow safe swallow strategies. ST will continue to follow to ensure diet tolerance and advance as appropriate. Recommendations: Diet Liquids Recommendation: (P) Thin/ Thin (0) Diet Solids Recommendation: (P) Pureed Dys 1/ Pureed (4) Recommended Form of Meds: (P) Crushed;With puree Compensatory Swallowing Strategies: (P) 90 Degrees elevation for all oral intake;Full supervision with meals;Alternate solids and liquids;Swallow 2 times per bite/sip;Verbal cueing required to use;One to one assist with meals;Chin tuck;Small bites/sips;Eat/Feed slowly;Effortful swallow (press/squeeze hard);Tongue sweep to clear oral;Feed patient only when alert;Elicit Swallow Swallowing Strategies Recommended Tests/Consults: Recommendations: (P) Dysphagia Treatment Discharge Recommendations: TBD pending medical status Speech therapy is recommended to improve swallow function. SUBJECTIVE: Patient Goals: Pt wants vanilla ice cream Pain Assessment: Pain Location #1 Pain Scale/Observation: (P) Numeric (0-10) Pain Rating Score #1: (P) 4 Sedation Level #1: (P) 1-Awake and alert Pain Location : (P) Back OBJECTIVE: Level of Consciousness: alert Orientation Level: oriented to person, oriented to place, oriented to situation Positioning: Upright in bed Respiratory Status: nasal cannula: 4lpm Swallow Trials: Thin Liquid: Presentation: (P) Straw-Assisted Oral: (P) Increased Anterior to Posterior Transit;Spillage Left Pharyngeal: (P) Cough - Immediate;Decreased Laryngeal Elevation (Cough 2/10 when not using chin-tuck technique) Puree: Presentation: (P) Spoon-Assisted Oral: (P) Spillage Left;Increased Anterior to Posterior Transit Pharyngeal: (P) Cough - Immediate;Decreased Laryngeal Elevation (cough 1/10) Assessment: Risk For Aspiration: (P) Moderate Primary Diagnostic Impression - Oral: (P) Moderate Primary Diagnostic Impression - Pharyngeal: (P) Moderate Treatment/Education/Interventions: While performing CHEMISTRY PHYSICS TEACHER, Patient and Caregiver was instructed in: goals of treatment , diet/liquid recommendations, swallowing strategies/aspiration precautions and clinical signs of aspiration . Patient demonstrated Good understanding of instructions given. Nurse and Mud Mixer contacted regarding results of treatment session. INFORMED CONSENT TO TREATMENT: Plan of care including recommended therapy, goals and frequency, discussed with patient who understands and agrees to proceed. Short Term Goals Patient will tolerate recommended food and liquid consistencies without clinical signs of aspiration., Patient will understand clinical signs of aspiration and aspiration precautions., Patient will follow recommended swallowing strategies., Patient will demonstrate an improvement in oropharyngeal swallow function to warrant diet upgrade. Etl Bi Developer Goal (s): Patient to be independent/baseline with functional mobility and self care and be able to safely discharge to prior level of care. Plan: Dysphagia Therapy If patient is discharged from the facility, this note serves as a discharge note if further speech therapy visits did not occur. Esther Elkins, MS [facility]-CHEMISTRY PHYSICS TEACHER Speech Language Pathologist * Gregorio Khan MD - 10/20/2022 8:00 AM CDT Images from the original note were not included. I have seen and examined the patient with the resident and I agree with the findings and plan of care as documented by the resident. Date of Service: 10/20/2022 Gregorio Khan MD Multidisciplinary rounds were held at 9am and the patient's care and recovery plan were reviewed and developed with the assembled team. Esperanza Chaparro is a 67 year old M??with hx of right ICA occlusion and R MCA infarction and peritonsillar abscess presented on 10/12 to the [place] ED for somnolence, left-sided hemiplegia and right-sided gaze deviation. Upon arrival to [facility] S/p TNK and intubation for respiratory distress. Angiogram 01/2022 showed R ICA occlusion.?? Admitted to ICU. MRI right MCA and SHEA cortical infarcts of the same acuteage. Based on distribution and appearance of the acute lesions etiology is possibly flow failure given limited baseline supply through the collateral circulation (AComm and ECA) which could have happened in the context of the infection. Alternatively may consider distal stump syndrome given chronic ICA occlusion. Extubated on 10/14, tolerating well. TTE non diagnostic. Currently on ASA. Maintain perfusion with SBP goals 130-160; lobsterman goal- normotensive. Continue Lipitor. ENT on board for theabscess - s/p abscess aspiration, on zosyn. Problem List Ischemic stroke (CMS/HCC) (POA: Yes) Carotid occlusion, right (POA: Yes) Carotid stenosis, left (POA: Yes) Weakness (POA: Unknown) Coronary artery disease (POA: No) JAMES (obstructive sleep apnea) (POA: Yes) COPD (chronic obstructive pulmonary disease) (CMS/HCC) (POA: Unknown) Stage 3 chronic kidney disease (CMS/HCC) (POA: Unknown) Peritonsillar abscess (POA: Yes) Dyspnea (POA: Yes) Respiratory acidosis (POA: Yes) Hx of completed stroke (POA: Yes) DM2 (diabetes mellitus, type 2) (CMS/HCC) (POA: Yes) Primary hypertension (POA: Yes) Smoker (POA: Yes) See Resident note for the remaining problem specific plan. 8 MEDICATIONS FOR CURRENT ENCOUNTER: SCHEDULED MEDICATIONS: 0.9% NaCl injection 3 mL, Intracatheter, q8h 0.9% NaCl injection 3 mL, Intracatheter, q8h albuterol-ipratropium (Duo-Neb) nebulizer solution 3 mL, Inhalation, q6h amLODIPine (Norvasc) tablet 10 mg, Enteral Tube, QDAY artificial tears ophthalmic ointment, Each Eye, q8h aspirin chew tablet 81 mg, Enteral Tube, QDAY budesonide (Pulmicort) nebulizer suspension 500 mcg, Inhalation, QDAY heparin injection 5,000 Units, Subcutaneous, q8h insulin glargine (Lantus) pen 10 Units, Subcutaneous, q24h insulin lispro (HumaLOG;ADMelog) 100 UNIT/ML pen 0-24 Units, Subcutaneous, q4h lidocaine (Lidoderm) 5 % patch 1 patch, Transdermal, q24h losartan (Cozaar) tablet 50 mg, Enteral Tube, QDAY magnesium sulfate 2 g in 50 mL bolus, Intravenous, Once melatonin tablet 8 mg, Enteral Tube, QDay 2030 nicotine (Nicoderm CQ) patch 21 mg, Transdermal, QDAY perflutren lipid microsphere (Definity) injection 0.5 mL, Intravenous, intra- Procedure multiple rosuvastatin (Crestor) tablet 40 mg, Enteral Tube, QDAY [COMPLETED] barium (Liquid E-Z-Paque) 60 % suspension, Oral, Once [COMPLETED] barium (Varibar) 40 % paste PSTE, Oral, Once [COMPLETED] losartan (Cozaar) tablet 25 mg, Oral, Once [COMPLETED] magnesium sulfate 2 g in 50 mL bolus, Intravenous, Once ?? [] ampicillin-sulbactam (Unasyn) 3 g in 0.9% NaCl IV 100 mL IVPB, Intravenous, q6h CONTINUOUS MEDICATIONS: ?? lactated ringers infusion, Intravenous, Continuous PRN MEDICATIONS: Or Or 0.9% NaCl injection 1-10 mL, Intracatheter, PRN 0.9% NaCl injection 3 mL, Intracatheter, PRN acetaminophen (Tylenol) suppository 650 mg, Rectal, q4h PRN acetaminophen (Tylenol) tablet 650 mg, Enteral Tube, q6h PRN albuterol (Proventil;Ventolin) (5 MG/ML) 0.5% nebulizer solution 2.5 mg, Inhalation, q6h PRN atropine injection 1 mg, Intravenous, Once PRN dextrose 10 % IV bolus, Intravenous, PRN dextrose 10 % IV bolus, Intravenous, PRN glucagon (Glucagen) injection 1 mg, Subcutaneous, PRN glucose (Diabetic Use) (Dex4 Glucose) oral liquid, Oral, PRN glucose (Diabetic Use) oral gel, Oral, PRN glucose chew tablet 4 tablet, Oral, PRN ?? polyethylene glycol 3350 (Miralax) packet 17 g, Enteral Tube, QDAY PRN Patient Vitals for the past 24 hrs: Temp Pulse Resp BP 10/20/22 0610 -- 53 16 -- 10/20/22 0316 98.4 ??F (36.9 ??C) 45 16 139/60 10/20/22 0033 -- 48 16 -- 10/20/22 0025 98.6 ??F (37 ??C) 48 20 142/63 10/19/22 1954 98.9 ??F (37.2 ??C) 41 16 163/63 10/19/22 1648 98.4 ??F (36.9 ??C) 57 -- 143/61 10/19/22 1639 -- 55 18 -- 10/19/22 1240 98.2 ??F (36.8 ??C) 59 -- 147/54 10/19/22 1215 -- 59 -- -- Recent Labs Component Name 10/19/22230110/18/22230010/18/22 0157 NA 153* 146* 147* CL 120* 115* 117* CO2 27 25 23 BUN 40* 37* 40* CREATININE 1.06 1.01 1.07 CALCIUM 9.4 9.2 9.0 PHOS 3.6 3.2 2.9 Recent Labs Component Name 10/19/22230110/18/22 23010/18/22 0155 WBC 9.5 9.8 9.1 RBC 3.58* 3.67* 3.77* HGB 10.4* 10.8* 11.0* HCT 32.1* 32.3* 33.8* Recent Labs Component Name 10/14/22 0118 10/13/22 0228 12/12/21 0205 CHOL - 148 188 TRIG 200* 117 216* HDL - 40* 33* LDLCALC - 85 112* Recent Labs Component Name 10/12/22 2231 12/11/21 1227 HGBA1C 7.7* 7.1* EAG 174 157 Recent Labs Component Name 10/19/22 2302 10/18/22 2301 10/18/22 0155 PLTCOUNT 164 165 182 * Kasandra Sultana MD - 10/19/2022 5:12 PM CDT Stroke Service Daily Progress Note Esperanza Chaparro Age: [age] year old Date of : 1955 Date of Admission: 10/12/2022 Hospital Day: 7 67 yo M hx of right ICA occlusion and R MCA infarction and peritonsillar abscess presented to [place] ED6/5 with somnolence, Left-sided hemiplegia, and right sided gaze deviation. S/p tnk at [facility] and intubated due to respiratory distress. Angiogram on 01/2022 shows R ICA occlusion. Admitted to NeuroICU. MRI with right MCA and SHEA cortical infarcts of the same acute age. ?? 10/15: EEG with no epileptiform discharges. Patient extubated successfully this AM ?? 10/16: Repeat CTH with slight increase in MLS. ?? 10/17: Repeat CTH no significant difference from prior. Transfer to floor orders placed afterwards. Subjective Interval History: Patient had no acute events occur overnight. Pt passed barium swallow study today and started on thin liquid diet. Objective Patient Vitals for the past 24 hrs: BP Temp Temp src Pulse Resp SpO2 Weight 10/19/22 1648 143/61 98.4 ??F (36.9 ??C) Oral 57 -- 96 % -- 10/19/22 1639 -- -- -- 55 18 98 % -- 10/19/22 1240 147/54 98.2 ??F (36.8 ??C) Oral 59 -- 96 % -- 10/19/22 1215 -- -- -- 59 -- 95 % -- 10/19/22 0743 171/65 97.6 ??F (36.4 ??C) Oral 55 -- 94 % -- 10/19/22 0615 -- -- -- -- -- -- 127.9 kg (282 lb) 10/19/22 0529 -- -- -- 63 18 100 % -- 10/19/22 0507 -- -- -- 57 -- 99 % -- 10/19/22 0359 169/62 98.6 ??F (37 ??C) Axillary 58 20 97 % -- 10/19/22 0021 -- -- -- 59 18 97 % -- 10/19/22 0000 148/64 98.1 ??F (36.7 ??C) Axillary 56 20 98 % -- 10/18/222011 166/64 -- -- -- -- -- -- 10/18/22 195 (!) 182/63 98.9 ??F (37.2 ??C) Oral 60 -- 98 % -- Intake/Output Summary (Last 24 hours) at 10/19/2022 1712 Last data filed at 10/19/2022 0614 Gross per 24 hour Intake 779 ml Output 1000 ml Net -221 ml Exam: Patient asleep but could be woken up and opened eyes. Following commands. Pupils are equal, briskly reactive. Speech: Dysarthric but fluent. Comprehension is intact. Follows commands on right side but no movement on L side. BRITT cerebellar and gait. Labs: Recent Labs Component Name 10/18/22230010/18/2215410/17/2243 WBC 9.8 9.1 9.4 RBC 3.67* 3.77* 4.22* HGB 10.8* 11.0* 12.3 HCT 32.3* 33.8* 38.2 Recent Labs Component Name 10/18/22230010/18/2215610/17/2243 NA 146* 147* 145 CL 115* 117* 114* CO2 BUN 37* 40* 55* CREATININE 1.01 1.07 1.43* CALCIUM 9.2 9.0 9.1 No results for input(s): MG in the last 43814 hours. Recent Labs Component Name 10/18/22230010/18/2215610/17/2243 PHOS 3.2 2.9 2.5* Recent Labs Component Name 10/12/22202001/19/22 0948 12/11/21 1227 PT 13.8 12.4 13.0 INR 1.1 0.9 1.0 PTT - - 35.2 No results for input(s): A1C in the last 90162 hours. Recent Labs Component Name 10/14/22 0118 10/13/22 0228 12/12/21 0205 CHOL - 148 188 HDL - 40* 33* LDLCALC - 85 112* TRIG 200* 117 216* Recent Labs Component Name 10/16/22 0029 TSH 1.008 Recent Labs Component Name 12/13/21 0301 12/12/21 1229 12/12/21 0205 TROPONINI 0.046* 0.039* 0.042* FL SWALLOWING FUNCTION STUDY Result Date: 10/19/2022 PROCEDURE: FL SWALLOWING FUNCTION STUDY, DATE/TIME OF EXAM: 10/19/2022 8:12 AM, LOCATION [facility] INDICATION: R13.10: Dysphagia, unspecified type ADDITIONAL CLINICAL INFORMATION: Ordering Provider Reason For Exam: further swallow function eval per speech therapist Technologist Note: Additional: COMPARISON: None. FLUOROSCOPY TIME: 203 seconds TECHNIQUE: Modified barium swallow fluoroscopy performed in conjunction with speech pathology staff. The speech pathologist administeredvarying thickness barium liquids and solids under direct Cine fluoroscopy. FINDINGS/IMPRESSION: Fluoroscopic assistance was provided for a modified barium swallow test performed by Speech Therapy. Please see the Speech Therapy report for details. Report dictated by Jacobo Gupta MD (residential tech). I, Adiel Lynn MD have personally reviewed and interpreted this examination/study. > Interpreting Provider: Adiel Lynn MD on 10/19/2022 12:[address] HEAD WO CONTRAST Result Date: 10/17/2022 PROCEDURE: CT HEAD WO CONTRAST, DATE/TIME OF EXAM: 10/17/2022 3:17 AM, LOCATION [facility] INDICATION: R53.1: Weakness ADDITIONAL CLINICAL INFORMATION: Ordering [...] of encephalomalacia is again seen in the lateralright occipital lobe, grossly unchanged compared to the [...] is mild paranasal sinus disease. The nasal septumis deviated to the left with a septal [...] Persistent cytotoxic edema, grossly similar to the priorhowever, there has been interval increased conspicuity of the infarcts compared to prior, compatible with expected interval evolution. 2.Persistent local mass effect and effacement of the right lateral ventricle. Similar or slightly decreased [id number] midline shift as outlined above. 3.No evidence of hemorrhagic transformation. > Dictated by Miguel Escamilla MD (residential tech). I, Sundar Devine MD have personally reviewed and interpreted this examination/study. > Interpreting Provider: Sundar Devine MD on 10/17/2022 4:50 PM XR ABDOMEN KUB PORTABLE Result Date: 10/16/2022 PROCEDURE: XR ABDOMEN KUB PORTABLE, DATE/TIME OF EXAM: 10/16/2022 12:55 PM, LOCATION [facility] INDICATION: I63.9: Ischemic stroke (CMS/HCC) ADDITIONAL CLINICAL INFORMATION: Ordering Provider Reason For Exam: NG tube placement verification COMPARISON: Abdominal radiograph 10/13/2022 FI NDINGS/IMPRESSION: *Enteric tube courses below the diaphragm with the distal tip superimposing the antropyloric region. *Mild gaseous dilation of the small bowel and colon is partially visualized, similar in appearance to prior. Report dictated by Oscar Santizo MD (residential tech). Ranjit Orourke MD have personally reviewed and interpreted this examination/study. > Interpreting Provider: Ranjit Nunez MD on 10/16/2022 5:[address] HEAD WO CONTRAST Result Date: 10/16/2022 PROCEDURE: CT HEAD WO CONTRAST, DATE/TIME OF EXAM: 10/16/2022 3:55 AM, LOCATION [facility] INDICATION: R53.1: Weakness ADDITIONAL CLINICAL INFORMATION: Ordering Provider Reason For Exam: assessing cerebral edema COMPARISON: CT head without contrast from 10/14/2021. MRI brain without contrast from 10/14/2022. EXAMINATION: Computed tomography (CT) of the head without contrast TECHNIQUE:CT of the head was performed without contrast according to standard protocol. CT dose reduction technique was used, including Automated Exposure Control FINDINGS: Fracture present on multiple images significantly limiting this study. There is extensive decreased attenuation involving most of the right cerebral hemisphere consistent with evolving acute infarction in the distributions of portions of the middle and anterior cerebral arteries. There is no definite hemorrhagic transformation. Mass effect is produced with approximately 5.7 mm of midline shift right to left. There is some compression of the right lateral ventricle and effacement of the left lateral and third ventricles. There is no evidence of ventricular dilatation. Small cortical infarcts are noted in the left cerebellar hemisphere Patchy decreased attenuation is noted within the white matter of the left cerebral hemisphere l ikely related to small vessel disease in a patient of this age. Bone window images demonstrate no evidence of definite calvarial fracture or bone destruction When today's study is compared to a previous dated 14 October 2022 there is been further evolution of the extensive areas of infarction in the right cerebral hemisphere with greater mass effect and midline shift right to left. IMPRESSION: Motion artifact significantly limiting this study. 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 Clinical correlation and continued close follow-up are recommended. 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 Findings consistent small vessel disease in the left cerebral hemisphere. The preliminary results of this study were discussed byDr. Cleveland with the patient's care provider, Dr. Brannon on, 16 October 2022 at 0534 hours with read back confirmation and verification. Report dictated by Romain Mckee MD, PhD (residential tech). I, Arnav Lock MD have personally reviewed and interpreted this examination/study. > Interpreting Provider: Arnav Lock MD on 10/16/2022 1:21 PM ECHO TRANSTHORACIC W BUBBLE STUDY Result Date: 10/15/2022 ??? Left??Ventricle: Left ventricle is mildly dilated. Normal systolic function. EF by 2D Ayala biplane is 61%. Regional wall motion abnormalities present. See diagram for wall motion findings. Normal diastolic function. ??? Left??Atrium: No interatrial septum shunt present viewable with agitatedsaline. CT HEAD WO CONTRAST Result Date: 10/14/2022 PROCEDURE: CT HEAD WO CONTRAST DATE/TIME OF EXAM: 10/14/2022 10:36 AM CLINICAL INFORMATION: None relevant/not provided if blank. Indication: R53.1: Weakness Additional History: COMPARISON: MRI brain 10/14/2022, CT head 10/13/2022 TECHNIQUE: Noncontrast CT brain was performed utilizing standard protocol. CT dose reduction technique was used, including Automated Exposure Control. FINDINGS: Interval increase in the confluent hypodensity involving the right frontal parietal and temporal lobes right MCA territory and also in the right SHEA territory consistent with known acute evolving infarct. There is localized mass effect with effacement of the sulci. No significant midline shift. Chronic infarct inthe right occipital lobe. Previously noted minimal petechial hemorrhages on MRI are not conspicuouson this study could be secondary to technique. Minimal mass effect on the right lateral ventricle. Mild interval decrease in the caliber of right lateral ventricle compared to the prior study. Mild interval decrease in the caliber of ventricles compared to prior study could be secondary to edema. For example third ventricle previously measured 8 mm now measures about 6 mm. Basilar cisterns are patent. No evidence of transtentorial or tonsillar herniation. Redemonstration of expansile lesion invo lving the the clivus No interval change in the expansile soft tissue lesion along the left lateral aspect of the sella with the thinning of the bone, unchanged compared to study from 12/11/2021 with the T2 hyperintensity on MRIs could be secondary to benign lesions like mucoceles however no postcontrast imaging is available for accurate characterization. Otherwise no acute osseous abnormality. Bilateral cataract replacement. IMPRESSION: 1. Redemonstration of large confluent evolving acute infarction in the right MCA territory and right SHEA territory involving most of the right cerebral hemisphere with local mass effect. No significant midline shift or evidence of herniation. No large hematoma however minimal petechial hemorrhages cannot be excluded. > Interpreting Provider: Re Sage MD on 10/14/2022 4:40 PM MRI BRAIN WO CONTRAST Result Date: 10/14/2022 PROCEDURE: MRI BRAIN WO CONTRAST, DATE/TIME OF EXAM: 10/14/2022 12:00 AM, LOCATION [facility] INDICATION: R53.1: Weakness ADDITIONAL CLINICAL INFORMATION: Ordering Provider Reason ForExam: Acute ischemic stroke EXAMINATION: Magnetic resonance imaging [...] basal ganglia, including putamen and caudate nuclei. Thisbelong to the right SHEA and MCA territory. [...] Encephalomalacia/gliosis is seen in the region of rightsuperior frontal lobe (series 9 image 19) and right temporoparietal region (series 9 image 10). Thecorpus callosum and sella appear normal. The posterior fossa, brainstem, and craniocervical junction appear normal. Other than bilateral cataract extractions, the visualized portions of the orbits appear grossly unremarkable. There is mild paranasal sinus disease. There is mild opacification in themastoid air cells, left more than right. The patient is intubated. Fluid and retained secretions inthe nasopharynx. The calvarium and visualized cervical spine [...] verification. Report dictated by Miguel Escamilla MD (residential tech) Sundar Orourke MD have personally reviewed and interpreted this examination/study. > Interpreting Provider: Sundar Devine MD on 10/14/2022 1:12 PM XR ABDOMEN KUB PORTABLE Result Date: 10/14/2022 PROCEDURE: XR ABDOMEN KUB PORTABLE, DATE/TIME OF EXAM: 10/13/2022 10:23 PM, LOCATION [facility] INDICATION: R13.10: Dysphagia, unspecified type ADDITIONAL CLINICAL INFORMATION: Ordering Provider Reason For Exam: OG tube placement COMPARISON: Abdominal radiograph 10/13/2022 at 10:52 AM FINDINGS/IMPRESSION: Enteric tube courses below the diaphragm with the distal tip superimposing thegastric body. Partially imaged colonic gaseous distention, increased from the prior exam. Report dictated by Oscar Santizo MD (residential tech). CEDRIC Orourke MD have personally reviewedand interpreted this examination/study. > Interpreting Provider: CEDRIC FLORES MD on 10/14/2022 7:[address] HEAD NON CONTRAST Result Date: 10/13/2022 EXAM: CT HEAD WO CONTRAST, DATE/TIME OF EXAM: 10/13/2022 8:29 PM, LOCATION: [facility] HISTORY: R53.1: Weakness ADDITIONAL CLINICAL INFORMATION: Ordering Provider Reason For Exam: Post tPa imaging EXAMINATION: CT scan of the head without intravenous contrast TECHNIQUE: CT of the head was performed without intravenous contrast according to standard protocol. CT dose reduction technique was used, including Automated Exposure Control. COMPARISON: Head CTs 10/13/2022 at 1:07 AM and 10/12/2022. FINDINGS: See impression. IMPRESSION: 1.Further increased conspicuity of large areas of hypoattenuation with loss of goldman-white differentiation involving the right frontal, parietal, and temporal lobes in addition to the right insula, which is consistent with an evolving large acute infarct corresponding to the right middlecerebral artery (MCA) vascular territory. 2.Further increased conspicuity of a moderately-size areaof hypoattenuation with loss of goldman-white differentiation along the parasagittal right frontal lobe, consistent with an evolving large acute infarct corresponding to the right anterior cerebral artery (SHEA) vascular territory. 3.No evidence of hemorrhagic conversion, significant midline shift, brain herniation, or evidence of hydrocephalus. 4.Please refer to recently reported head CTs 10/12/2022 and 10/12/2022 for description of additional chronic findings. Results of this exam were verbally discussed by Dr. Zelda Willams with Dr. Brannon on 10/13/2022 at 9:02 PM for a Critical Stroke Protocol withreadback confirmation and verification. The images were reviewed by attending physician Dr. Zelda Willams prior to this communication. > Interpreting Provider: Zelda Willams MD, PhD on 10/13/2022 9:09 PM XR CHEST 1VW PORTABLE Result Date: 10/13/2022 PROCEDURE: XR CHEST 1VW PORTABLE, DATE/TIME OF EXAM: 10/13/2022 1:53 AM, LOCATION [facility] INDICATION: R06.00: Dyspnea, unspecified type ADDITIONAL CLINICAL INFORMATION: Ordering Provider Reason For Exam: ETT position COMPARISON: Chest x-ray 10/13/2022. FINDINGS/IMPRESSION: Endotracheal tube terminates at the level of thoracic inlet/mid thoracic trachea, approximately 7 cm above the cathi. A loop recorder superimposes the left chest. There is minimal basilar atelectasis. There is no focal consolidation, pleural effusion, or pneumothorax. The heart size is normal and mediastinal contours are normal. > Dictated by Noe Bravo MD (residential tech). I, Wen Lee MD have personally reviewed and interpreted this examination/study. > Interpreting Provider: Wen Lee MD on 10/13/2022 2:16 PM XR CHEST 1VW PORTABLE Result Date: 10/13/2022 EXAMINATION: XR CHEST 1VW PORTABLE HISTORY: E87.29: Respiratory acidosis COMPARISON: Chest radiograph 10/13/2022 at 1:46 AM FINDINGS/IMPRESSION: Lines: *Endotracheal tube terminates within the mid thoracic trachea. *A loop recorder is partially visualized superimposing the left chest. Aside from mildbibasilar atelectasis, there is no confluent consolidation. No pleural effusion is seen. No pneumothorax is identified. The cardiac silhouette is within normal limits. Aortic atherosclerosis is noted. The superior mediastinal contours are within normal limits. No acute osseous abnormality is identified. Report dictated by Oscar Santizo M.D. (residential tech) 10/13/2022 7:05 AM ICEDRIC MD have personally reviewed and interpreted this examination/study. > Interpreting Provider: CEDRIC FLORES MD on 10/13/2022 2:14 PM XR ABDOMEN KUB PORTABLE Result Date: 10/13/2022 PROCEDURE: XR ABDOMEN KUB PORTABLE, DATE/TIME OF EXAM: 10/13/2022 11:01 AM, LOCATION [facility] INDICATION: R53.1: Weakness ADDITIONAL CLINICAL INFORMATION: Ordering Provider Reason For Exam: MRI COMPARISON: None. TECHNIQUE: Supine frontal radiograph of the abdomen. FINDINGS: A looprecorder overlies the left axilla. No evidence of retained metallic density foreign bodies within the abdomen. The urinary bladder is opacified with contrast material. Moderate gas and stool are present. There are no findings to suggest bowel obstruction, free intraperitoneal gas or pneumatosis. Noabnormal calcifications are seen. No bone abnormality is seen. IMPRESSION: 1.A loop recorder overlies the left axilla. No evidence of retained metallic density foreign bodies within the abdomen. 2.Nonobstructive bowel gas pattern. Report dictated by Oscar Santizo M.D. (residential tech) 10/13/2022 11:03 AM Adiel Orourke MD have personally reviewed and interpreted this examination/study. > Interpreting Provider: Adiel Lynn MD on 10/13/2022 1:03 PM XR CHEST 1VW PORTABLE Result Date: 10/13/2022 EXAMINATION: XR CHEST 1VW PORTABLE HISTORY: R06.00: Dyspnea, unspecified type E87.29: Respiratory acidosis COMPARISON: Chest radiograph 10/12/2022 FINDINGS/IMPRESSION: Lines: *Interval insertion of endotracheal tube which terminates in the proximal thoracic trachea, 6 cm from the cathi. *A loop recor manish superimposes the left chest. No confluent consolidation is noted. No pleural effusion is seen. No pneumothorax is identified. The heart is borderline enlarged. Aortic atherosclerosis is noted. The superior mediastinal contours are within normal limits. No acute osseous abnormality is identified. Report dictated by Oscar Santizo M.D. (residential tech) 10/13/2022 7:05 AM IAdiel MD have personally reviewed and interpreted this examination/study. > Interpreting Provider: Adiel Lynn MD on 10/13/2022 11:[address] NECK SOFT TISSUE W CONT Result Date: 10/13/2022 PROCEDURE: CT NECK SOFT TISSUE W CONT, DATE/TIME OF EXAM: 10/13/2022 1:29 AM, LOCATION [facility] INDICATION: R06.00: Dyspnea, unspecified type ADDITIONAL CLINICAL INFORMATION: Ordering Provider Reason For Exam: Peritonsillar abscess Technologist Note: None. Additional: Per chart review, patient was difficult to intubate and multiple attempts were required. CONTRAST: IOPAMIDOL 76 % IV SOLN:75 mL EXAMINATION: Computed tomography (CT) of the neck with contrast TECHNIQUE: CT of theneck was performed following the uneventful administration of 75 mL Isovue-370 contrast according to standard protocol. CT dose reduction technique was used, including Automated Exposure Control. COMP ARISON: CT angiogram of the neck performed 10/30 [...] kenneth bullosa.. Paraseptal emphysema and lung scarring. IMPRESSION: 1.Findings concerning for right peritonsillar abscess with associated diffuse pharyngitis and extensive laryngeal edema, extending to the level of the supraglottic larynx, resulting in airway compromise status post endotracheal intubation. Preliminary findings were discussed with the patient's care provider, Dr. Brannon by Dr. Cleveland via telephone at 0248 on 10/13/2022 with readback comprehension and verification. > Dictated by Dean Cleveland M.D. (residential tech) ISundar MD have personally reviewed and interpreted this examination/study. > Interpreting Provider: Sundar Devine MD on 10/13/2022 10:[address] HEAD WO CONTRAST Result Date: 10/13/2022 PROCEDURE: CT HEAD WO CONTRAST, DATE/TIME OF EXAM: 10/13/2022 1:26 AM, LOCATION [facility] INDICATION: I63.9: Ischemic stroke ([facility] EXAMINATION: Computed tomography (CT) of the head without contrast ADDITIONAL CLINICAL INFORMATION: Ordering Provider Reason For Exam: Acute respiratory distress. R/o central causes Technologist Note: None. Additional: None. TECHNIQUE: CT of the head was performed without contrast according to standard protocol. CT dose reduction technique was used, including Automated Exposure Control. COMPARISON: CT of the head from 10/12/2022. FINDINGS: No acute intra- or extra-axial fluid collections are identified. There is mild cerebral volume loss with associated ex vacuo ventricular dilatation. The basilar cisterns are patent. No significant mass effect or midline shift is seen. There has been interval mild diffuse but subtle hypoattenuation and loss of orozco-white matter differentiation involving larger portions of the right frontal and right temp oral lobes as well as the right insula, and possibly posterior lateral temporal lobes which could represent acute evolving acute right MCA territory infarcts. MRI of the brain is recommended for further evaluation. Additional subtle hypoattenuation along the parasagittal right frontal lobe is also noted. Redemonstration of chronic infarcts with areas of encephalomalacia and gliosis in the right frontal and right parietal as well as the right occipital lobes compatible with chronic right MCA, SHEA, and BOARD MEMBER territory infarcts. Additional tiny lacunar infarcts in the bilateral cerebellar hemispheres are again noted. Periventricular white matter hypoattenuation is indicative of chronic small vess el ischemic disease. There is vascular calcification of the carotid siphons. No acute calvarial fracture is identified. Other than bilateral cataract extractions, the orbits appear normal. There is mild paranasal sinus disease. Opacification of the nasal passages and the nasopharynx. The patient is intubated. The mastoid air cells are grossly clear. Calcific densities along the left frontal scalpare again noted. No soft tissue abnormality is otherwise identified. IMPRESSION: 1.Suggestion of interval diffuse edema in the right MCA territory concerning for evolving right MCA territory ischemia. MRI of the brain is recommended for further evaluation.. 2.Additional chronic findings as outlined above. Results of this exam were communicated with closed loop confirmation to Dr. Mendenhall by Dr. Devine on 10/13/2022 at 9:54 AM with read back compression and verification. Report dictated by Romain Mckee MD, PhD (residential tech). I, Sundar Devine MD have personally reviewed and interpreted this examination/study. > Interpreting Provider: Sundar Devine MD on 10/13/2022 10:21 AM XR CHEST 1VW PORTABLE Result Date: 10/13/2022 EXAMINATION: XR CHEST 1VW PORTABLE HISTORY: R53.1: Weakness COMPARISON: Chest radiograph dated 12/11/2021 FINDINGS/IMPRESSION: Lines: *A loop recorder superimposes the left chest. No confluent consolidation is noted. No pleural effusion is seen. No pneumothorax is identified. The heart is enlarged for this AP view. Aortic atherosclerosis is noted. The superior mediastinal contours are within normallimits. No acute osseous abnormality is identified. No free air is seen under the diaphragm. > Interpreting Provider: CEDRIC FLORES MD on 10/13/2022 6:[address] ANGIO BRAIN NECK STROKE Result Date: 10/12/2022 EXAM: CT ANGIO BRAIN NECK STROKE, DATE/TIME OF EXAM: 10/12/2022 7:42 PM, LOCATION: [facility] HISTORY: Code Stroke EXAMINATION: CT angiogram images [...] right middle cerebral artery (MCA) via the [place] of Arvizu/patent anterior communicating artery. Diminished opacification of the right MCA M1 segment and distal branches with notable markedly diminutive opacification versus nonopacification of the MCA M3 segment and beyond. No occlusion or hemodynamical ly significant stenosis elsewhere of the major intracranial arteries. Patent intracranial left ICA,left MCA, bilateral ACAs, vertebral artery V4 segments, [...] ARTERIES: No occlusion or hemodynamically significant stenosis. Noevidence of dissection. OTHER: Partially imaged lung apices [...] the right SHEA and MCA via the [place] of Arvizu. Diminished opacification of the right [...] communication. Report dictated by Gilbert Morrow MD (residential tech). I, Zelda Willams MD, PhD have personally reviewed and interpreted this examination/study. > Interpreting Provider: Zelda Willams MD, PhD on 10/12/2022 8:[address] BRAIN - Stroke Result Date: 10/12/2022 EXAM: CT BRAIN STROKE, DATE/TIME OF EXAM: 10/12/2022 7:32 PM, LOCATION: [facility] HISTORY: Code Stroke EXAMINATION: CT scan of [...] PARENCHYMA: No acute parenchymal hemorrhage. Apparent hypodensity ofthe right anterior temporal lobe and insular region, which is nonspecific and may be attributable to motion artifact or possibly representing areas of evolving acute infarct. No mass effect, midline shift, or brain herniation. Re-demonstrated areas of encephalomalacia involving the right frontal and right parietal lobes, consistent with chronic infarcts involving the right middle cerebral artery ( MCA) vascular territory and right anterior cerebral artery (SHEA)/MCA watershed territory. Re-demonstrated area of encephalomalacia involving the right occipital lobe, consistent with a chronic infarct involving the right posterior cerebral artery (BOARD MEMBER) vascular territory. Multiple small chronic lacunes of [...] tissues. Mildly expansile soft tissue lesion of son-ug-szyabmybvu of the sella turcica measuring 2.1 x 1.6 cm (09/03), which is associated with thinning of thedorsum sellae and is incompletely assessed on this [...] infarct. Recommend follow-up brain MRI without contrast forfurther evaluation. 3.Multiple chronic infarcts of the right cerebral hemisphere and multiple smallchronic lacunes of the left greater than right cerebellar hemispheres as described. 4.Mildly expansile soft tissue lesion of the mid-to-left aspect of the sella turcica measuring 2.1 x 1.6 cm, which is associated with thinning of the dorsum sellae and is incompletely assessed on this examination. Recommend follow-up sella MRI without and with contrast. Results of this exam were verbally discussedby Dr. Zelda Willams with Dr. Brannon on 10/12/2022 at 7:44 PM for a Critical Stroke Protocol with readback confirmation and verification. The images were reviewed by attending physician Dr. Zelda Willamsprior to this communication. > Interpreting Provider: Zelda Willams MD, PhD on 10/12/2022 8:20 PM Ischemic stroke (CMS/HCC) (POA: Yes) Carotid occlusion, right (POA: Yes) Carotid stenosis, left (POA: Yes) Weakness (POA: Unknown) Coronary artery disease (POA: No) JAMES (obstructive sleep apnea) (POA: Yes) COPD (chronic obstructive pulmonary disease) (CMS/HCC) (POA: Unknown) Stage 3 chronic kidney disease (CMS/HCC) (POA: Unknown) Peritonsillar abscess (POA: Yes) Dyspnea (POA: Yes) Respiratory acidosis (POA: Yes) Hx of completed stroke (POA: Yes) DM2 (diabetes mellitus, type 2) (CMS/HCC) (POA: Yes) Primary hypertension (POA: Yes) Smoker (POA: Yes) Assessment Esperanza Chaparro is a 67 year old male presenting 10/12 from [place] for left sided hemiparesis and aphasia. CTH with acute on chronic infarcts. CTA with chronic right ICA complete occlusion identified on Cerebral Angiogram in 01/2022. S/p TNK but MT not pursued due to low ASPECT score. MRI with right frontal, parietal, and temporal lobes consistent with known infarct in right MCA and SHEA territories with no hemorrhagic transformation. Mechanism is large artery. Flow failure possible given distribution and appearance of lesions on MRI, and also in the setting of infection which was being treated at [place].Proximal or distal stump syndrome can also be considered but less likely given both MCA and SHEA involvement. Stroke Type: Ischemic Stroke Mechanism: Large Artery: Flow failure vs. Carotid stump styndrome Plan R SHEA/MCA Territory Infarctions s/p tnk Chronic R ICA occlusion - Stroke workup complete - NSYG signed off for decompressive hemicraniectomy watch. - On aspirin 81 mg, Rosuvastatin 40 mg for secondary prevention - SBP goal 120-180 - May add plavix when there is less potential for surgical intervention. - If patient has future ischemic vascular injury, can consider switching to anticoagulation with Single antiplatelet therapy. - Disposition: acute rehab recommendation from PT/OT. ?? Blood Pressure Goals: SBP: 130-180 per NCC, 160 difficult to manage given BRYCE with oral antihypertensives. ?? Core Measures tPA administration: yes Anti-thrombotic: Aspirin 81 mg Statin: Rosuvastatin 40 mg DVT prophylaxis: Subcutaneous heparin Swallow Evaluation: passed for thin liquid PT/OT Evaluation: pending Smoking cessation; will cancer genetic counselor: pending ?? Individual Modifiable Risk Factors Hypertension: yes Hyperlipidemia: yes Diabetes: yes Atrial Fibrillation: no Tobacco: no ?? Diabetes plan of care based on A1c: Patient's A1c is equal to or greater than 6.5%. For patients with diabetes (A1c >6.5%), SGLT-2 inhibitors or GLP-1 receptor agonists have been shown to reduce major adverse cardiovascular events. These medications require close follow up with PCP or yarn spinner and lab monitoring. Due to this reason, we have deferred treatment until outpatient follow up. Facility Manager Histology should be consulted to provide patient education. Patient will follow with PCP/Reconcilement Clerk after discharge for diabetes medications and continued disease management. ?? Additional Hospital Problems: ?? Dysphagia - Failed multiple pit crew support worker swallow evaluations - NGT in place - Thin liquid diet per speech therapy recs ?? Peritonsillar Abscess - Unasyn 3 g q6h per ENT - Extubated 10/15 - Day 11/13 unasyn today. ?? Bradycardia First Degree AV Block - Holdoing home coreg - EKG on 10/12/2022 with First degree av block ?? T2DM - A1C 7.7% - Lantus 15 U q24hr - BG goal 140-180 ?? COPD -Hx smoking - Duonebs q4hr - Budesonide 500 mcg nebs qd ?? JAMES - consider Cpap ?? HTN - on Coreg 6.25 mg BID and Lisinopril 10 mg QD at home - Continue amlodipine 10 mg daily and Losartan 50 mg daily (increased Losartan dose from 25 to 50 mg today) ?? Hx CAD s/p stent: - Resumed home ASA - Resumed home Rosuvastatin 40 mg QD ?? HLD - Home Rosuvastatin 40 mg ? Case findings discussed with Dr. Khan, Stroke Attending. Kasandra Sultana MD Neurology Resident * Carol Akins, PT - 10/19/2022 5:03 PM CDT [facility] Physical Therapy Progress Note Patient: Esperanza Chaparro Med Record Number: [id number] Date of : 1955 Age: [age] year old Co-tx with OT due to skilled level of assist needed PPE worn by staff: gloves;mask - procedural Recommendations: Discharge PT Discharge Recommendations: Patient would benefit from intensive 3-hour multidisciplinary therapy This recommendation is made due to ongoing intensive PT functional needs: patient has the need for more than one skilled therapy service;motivated to participate in therapy;functional mobility is significantly below baseline SUBJECTIVE: Subjective: Pt agreeable to PT Pain Assessment: Pain Location #1 Pain Scale/Observation: Numeric (0-10) Pain Rating Score #1: 8 Pain Location : Back;Arm Pain Orientation: Left;Right Pain Intervention(s): Non-pharmacological Non-pharmacological interventions: Rest;Reposition;Elevated Behaviors/Assumed Pain Present : Calm PRECAUTIONS: Weight Bearing Status: (No restrictions) Activity Level: Activity as Tolerated OBJECTIVE: At start of therapy session, patient found in bed and with no alarm General Appearance: Adult male, in bed, NAD LDAs: IV's: Peripheral line, NG/Dobbhoff, Oxygen Nasal Cannula and External catheter Vitals: (*Assess the 3 levels of oxygen saturations both for room air and 02 unless rest on room air is 88% or less). Rest BP: HR: 54 Sp02 Sp02 98% 1 L O2 Ex/Gait/Activity Without 02 BP: HR: Sp02 Room Air Ex/Gait/Activity With 02 BP: HR: Sp02 L O2 Post Activity BP: 128/58 HR: 65 Sp02 Sp02 97% 1 L O2 Observations: Vital signs stable throughout session; pt does report dizziness when rolling on to L side Mental Status/Cognition: Level of Consciousness-Adult: Alert;Eyes Open Spontaneously Orientation Level: Oriented to Person Cognition: Follows one step commands;Processing-delayed;Safety awareness-decreased;Judgement-decreased;Attention/concentration-decreased Attention Span: Attends with cues to redirect Mobility: A gait belt and non-slip socks were used for all out of bed activity this date. Bed Mobility: Rolling: Maximal Assistance to Right;Maximal Assistance to Left (Assist X2 to the Right) Supine to Sit: Total Assistance;X 2 with HOB in semi-fowlers position Sit to Supine: Total Assistance;X 2 Transfers: Sit to Stand: (Not completed this date 2/2 poor sitting balance) Gait: Weight Bearing Status: (No restrictions) Balance: Balance Scales/Tests Used: Sitting: Static/Dynamic;Standing: Static/Dynamic Sitting - Static: Poor (L lateral retropulsion sitting EOB; pt sat EOB x10 minutes working on sitting balance activities and ADLS) Sitting - Dynamic: Poor ACTIVITY TOLERANCE: Patient's activity tolerance: fair. TREATMENT/INTERVENTIONS: strengthening exercises, bed mobility training, transfer training, balanceactivities, monitoring of vitals and cognitive stimulation Modified [place]ou: Current Modified [place]ou Score: 5 AM-PAC 6 Clicks Mobility Raw Score:: 8 EDUCATION: While performing PT, Patient was instructed in:functional mobility training, safety awareness/fall precautions , home exercise program, stroke education and precautions, discharge planning, use of call light Presented to patient who demonstrates Fair understanding of instructions given. ASSESSMENT: Patient would benefit from additional Physical Therapy sessions to achieve the following functionalgoals to enhance independence. Short Term Goals: Goal Formation With patient Patient will perform bed mobility with maximal assist and X 1 Patient will transfer sit to/from stand with moderate assist and X 2 Patient will transfer bed to/from chair with moderate assist and X 2 Patient will demonstrate sitting balance of Poor plus x 10 minutes Etl Bi Developer Goal(s): Patient to be independent with functional mobility and self-care and should be able to safely discharge to prior level of care. INFORMED CONSENT TO TREATMENT: Plan of care is discussed but patient with questionable understanding. Equipment Issued: none Plan: Patient continues to benefit from skilled therapy services., Continue with goals as established. If patient is discharged from the facility, this note serves as a discharge summary if further physical therapy visits did not occur. Refer to filed flowsheet for further details. Following therapy session, patient left in bed, with bed alarm on , with call light within reach. * Karina Shipman OT - 10/19/2022 11:37 AM CDT [facility] Occupational Therapy Progress Note Patient: Esperanza Chaparro Med Record Number: [id number] Date of : 1955 Age: [age] year old PPE worn by staff: gloves;mask - procedural PPE worn by patient: gown - patient, clean;socks - clean Co-Treatment with PT 2/2 level of skilled assist required. Recommendations: Discharge OT Discharge Recommendations: Patient would benefit from intensive 3-hour multidisciplinary therapy This recommendation is made due to ongoing intensive OT functional needs: patient demonstrates a significant functional decline and would benefit from skilled therapy intervention to restore function Nurse and Physical Therapy contacted regarding patient status and/or discharge plan. Activity Level: as tolerated PRECAUTIONS: Weight Bearing Status: Lower Extremity;Upper Extremity Weight Bearing: WBAT SUBJECTIVE: Subjective: Pt agreeable to therapy with encouragement. Pt reports his mouth is dry. Pain Assessment: Pain Location #1 Pain Scale/Observation: Numeric (0-10) Pain Rating Score #1: 8 Pain Location : Back;Arm Pain Orientation: Left;Right Pain Intervention(s): Non-pharmacological Non-pharmacological interventions: Rest;Reposition;Elevated Behaviors/Assumed Pain Present : Calm OBJECTIVE: At start of therapy session, patient found in bed and with bed alarm on General Appearance: Pt supine in bed without signs or symptoms of distress. LDA: IV's: Peripheral line, External Catheter, O2 Nasal Cannula and NG/Dobbhoff Vitals: (*Assess the 3 levels of oxygen saturations both for room air and 02 unless rest on room air is 88% or less). Rest BP: -- HR: 54 Sp02 98% 1 L O2 Post Activity BP: 128/58 HR: 65 Sp02 97% 1 L O2 Observations: Pt monitored during session. Vitals stable and pt without signs or symptoms of distress. Mental Status/Cognition: Level of Consciousness-Adult: Alert;Eyes Open Spontaneously Orientation Level: Oriented to Person Cognition: Follows one step commands;Processing-delayed;Safety awareness-decreased;Judgement-decreased;Attention/concentration-decreased Attention Span: Attends with cues to redirect Following Commands: Follows one step commands consistently Safety Judgement: Decreased awareness of need for assistance Awareness of Errors: Decreased awareness of deficits;Assistance required to identify errors made;Assistance required to correct errors made Problem Solving: Assistance required to generate solutions;Assistance required to identify errors made;Assistance required to implement solutions Mobility: a gait belt and non-slip socks were used for all out of bed activity this date. Bed Mobility: Rolling: Maximal Assistance to Right;Maximal Assistance to Left (Assist X2 to the Right) Supine to Sit: Total Assistance;X 2 with HOB in semi-fowlers position Sit to Supine: Total Assistance;X 2 Transfers: Sit to Stand: (Not completed this date 2/2 poor sitting balance) Balance: Balance Scales/Tests Used: Sitting: Static/Dynamic;Standing: Static/Dynamic Sitting - Static: Poor (L lateral retropulsion while seated EOB) Sitting - Dynamic: Poor Activities of Daily Living: Oral Facial Hygiene: Moderate Assistance (Oral care with suction while sitting EOB) Upper Body Dressing: Maximal Assistance (To adjust gown in bed and at EOB) Toileting: Total Assistance (For rolling to get on/off bed daniels, gown management, and hygiene) ACTIVITY TOLERANCE: Patient's activity tolerance: poor. Modified Rohan: Current Modified Rohan Score: 5 AM-PAC 6 Clicks Daily Activity Raw Score:: 7 TREATMENT/INTERVENTIONS: ADL training Endurance training Bed mobility Safety awareness EDUCATION: While performing OT, Patient was instructed in:functional mobility training, self-care training, safety awareness/fall precautions , discharge planning, use of call light Presented to patient who demonstrates Fair to Poor understanding of instructions given. INFORMED CONSENT TO TREATMENT: Plan of care is discussed but patient with fair understanding. ASSESSMENT: Patient continues to benefit from skilled Occupational Therapy to achieve the following functional goals. Short Term Goals: Goal Formation With patient Cognition: 2 step commands and 100% of the time Patient will increase orientation to time and situation Patient will perform grooming at edge of bed and with moderate assist Patient will transfer to bedside commode with moderate assist and X 2 Etl Bi Developer Goal(s): Patient to discharge to appropriate next level of inpatient care Plan: Patient continues to benefit from skilled therapy services., Continue with goals as established. If patient is discharged from the facility, this note serves as a discharge summary if further occupational therapy visits did not occur. Refer to filed flowsheet for further details. Following therapy session, patient left in bed, with bed alarm on , with call light within reach, and RT in room. * Jana Sanchez, CHEMISTRY PHYSICS TEACHER - 10/19/2022 11:34 AM CDT [facility] Modified Barium Swallow Patient: Esperanza Chaparro Med Record Number [id number] Date of : 1955 Age: [age] year old PPE: PPE donned by CHEMISTRY PHYSICS TEACHER during this session - N95 mask, eye protection and gloves. Referring Physician: Arminda De Jesus MD Diagnosis: Patient Active Problem List: Hx of completed stroke DM2 (diabetes mellitus, type 2) ([facility]) Chronic low back pain Left leg weakness Primary hypertension Smoker Carotid occlusion, right Carotid stenosis, left Weakness Ischemic stroke ([facility]) Coronary artery disease JAMES (obstructive sleep apnea) COPD (chronic obstructive pulmonary disease) ([facility]) Stage 3 chronic kidney disease ([facility]) Peritonsillar abscess Dyspnea Respiratory acidosis Past Medical History: Diagnosis Date ??? Atherosclerosis of coronary artery ??? Chronic obstructive pulmonary disease (COPD) ([facility]) ??? Essential hypertension ??? History of diabetes mellitus ??? MD (myocardial infarction) ([facility]) ??? Sleep apnea Pt states he was dx with sleep apnea, but cpap did not help ??? Snoring ??? SOB (shortness of breath) Swallow Recommendations: Liquids: thin Diet: Puree (4)/DYS1 Meds: Crushed in puree Swallowing guidelines: Aspiration precautions as follows... - sit upright for oral intake (90 degree chin to neck angle) - small bites - small, single sips - alternate liquids and solids - chin tuck - check for pocketing - slow rate - medication crushed in puree - 100% supervision Recommended tests/consults: Modified Barium Swallow (repeat recommended to advance) Discharge Recommendation: TBD pending medical status Speech therapy is not recommended at this time. Goals noted above met. Subjective: Patient Goals: Pt did not state goals. Pain: Patient has 0/10 pain Objective: Patient completed MBS in radiology suite. Patient completed trial of thin barium by spoon, straw, and cup, nectar barium by straw, puree, and cracker/barium mix. Patient demonstrated mild-moderate oropharyngeal dysphagia. Patient demonstrated the following deficits: decreased initiation,slow mastication, decreased A-P transit of bolus, swallow triggers with bolus head in valleculae and decreased pharyngeal contraction. Pt exhibited holding of puree and cracker/barium mix (significant w/ cracker). Pt exhibited aspiration 1x w/ thin and flash penetration 1x w/ thin. Pt presents withforward leaning/chin tuck posture which may have improved swallow ability. ST recommends chin tuck when swallowing thin liquids. ST will focus on improving swallow timing, airway protection, improving pharyngeal contraction and consistent use of swallowing strategies. ST will complete a follow up MBS in 5-7 days depending on patient's progress with ST goals. Positioning: Upright in bed Breathing Status: Room air Tracheostomy tube: N/A Cognitive/Mental Status: Patient appears alert, oriented with no cognitive impairments that will interfere with therapy intervention. Procedure: This procedure was performed in conjunction with radiology using lateral views. The patient was given thin liquid, nectar thick liquid, pudding consistency and cracker dipped in pudding/barium mix . Oral Stage: Mastication: Laborious and Decreased coordination Transit: Increased oral transit time, Tongue pumping and Loss of bolus control Tongue Base Retraction: impaired Comments: Residue in oral cavity following puree and cracker (worse w/ cracker) Pharyngeal Stage: Response Triggering: Moderate delay Spillage of Bolus: Valleculae and Pyriformis sinus Epiglottic Function: Minimal protection Stasis/Residue: Base of tongue, Valleculae, Pyriform sinus, Anterior pharyngeal wall and Posterior pharyngeal wall Multi Penetration/Aspiration: During swallow Consistency: Thin Liquids Amount: Trace Cough: Present Comments: Trace aspiration 1x and flash penetration 1x with thin Esophageal Stage: Cricopharyngeal Function: impaired Comments: residue in pyriform sinuses Swallowing Function: mild-moderate dysphagia Comments: Poor oral motor control, delayed initiation, residue in pyriforms, tongue base, and oral cavity. Education: Patient, Nursing and Physician instructed in recommedations and indicated understanding. Informed Consent to Treatment: Plan of care including recommended therapy, goals and frequency, as well as potential risks and benefits of treatment/assessment explained to the patient who understands and agrees to proceed. Short Term Goal(s): Patient/staff/family to receive instruction in compensatory swallowing strategies andd/or recommendations and verbalize understandi., Patient to demonstrate no clinical signs/symptoms of aspiration or difficulty swallowing with recommended diet. and Patient to demonstrate gains in swallowing function as demonstrated by the ability to tolerate diet upgrade. Etl Bi Developer Goal(s): Patient to be independent/baseline with functional swallow and be able to safely discharge to priorlevel of care. If patient is discharged from this facility, this note serves as a discharge note if further speechtherapy visits did not occur. Esther Elkins MS [facility]-CHEMISTRY PHYSICS TEACHER Speech Language Pathologist * Reji He RN - 10/19/2022 10:49 AM CDT Problem: Tobacco Use Goal: Inpatient tobacco-use cessation counseling participation Outcome: Progressing Problem: Pain/Discomfort Goal: Patient exhibits reduced pain/discomfort as evidenced by pain scores Outcome: Progressing Goal: Patient uses pharmacological and non-pharmacological pain management strategies. Outcome: Progressing Goal: Patient verbalizes acceptable level of pain relief and ability to engage in desired activity. Outcome: Progressing Problem: Neurological Deficit Goal: Neurological status is stable or improving Outcome: Progressing Problem: Hemodynamic Status/Cardiac Output Goal: Patient has stable vital signs and fluid balance Outcome: Progressing Problem: Oxygenation/Respiratory Function Goal: Respiratory rate/effort will be within specified limits Outcome: Progressing Problem: Mobility Goal: Patient's mobility/activity will be maintained as optimum level for age, diagnosis and physical limitations Outcome: Progressing Goal: Continuum of care needs are further met through referral to outpatient services when appropriate. Outcome: Progressing Goal: Patient reports the ability to perform Activities of Daily Living. Outcome: Progressing Problem: Communication Impairment/Dysarthria Goal: Ability to express needs and understand communication Outcome: Progressing Problem: Nutrition Goal: Nutritional status is improving Outcome: Progressing Problem: Aspiration Precautions Goal: Patient's risk of aspiration is minimized Outcome: Progressing Problem: Glycemic Control Goal: Clinical indication of glycemia balance is achieved Outcome: Progressing Problem: Knowledge Deficit,Education,Discharge Plan Goal: The patient/family will understand cerebrovascular disease and its symptoms, treatment and management Outcome: Progressing Problem: Skin Integrity Goal: Skin integrity is maintained or improved Outcome: Progressing Problem: Fall Risk Goal: Fall risk and fall related injury risk are minimized (interventions related to the fall risk can be found in the flowsheet documentation) Outcome: Progressing Problem: Nutrient: Inadequate protein-energy intake Goal: Total intake will meet estimated nutrient needs Outcome: Progressing Problem: Transfers Goal: STG - Patient will transfer sit to and from stand Outcome: Progressing Problem: Balance Goal: LTG - Patient will demonstrate Intervention to enhance balance for safe completion of daily activities Outcome: Progressing * Gregorio Khan MD - 10/19/2022 7:44 AM CDT Images from the original note were not included. I have seen and examined the patient with the resident and I agree with the findings and plan of care as documented by the resident. Date of Service: 10/19/2022 Gregorio Khan MD Multidisciplinary rounds were held at 9am and the patient's care and recovery plan were reviewed and developed with the assembled team. Esperanza Chaparro is a 67 year old M??with hx of right ICA occlusion and R MCA infarction and peritonsillar abscess presented on 10/12 to the [place] ED for somnolence, left-sided hemiplegia and right-sided gaze deviation. Upon arrival to [facility] S/p TNK and intubation for respiratory distress. Angiogram 01/2022 showed R ICA occlusion.?? Admitted to ICU. MRI right MCA and SHEA cortical infarcts of the same acuteage. Based on distribution and appearance of the acute lesions etiology is possibly flow failure given limited baseline supply through the collateral circulation (AComm and ECA) which could have happened in the context of the infection. Alternatively may consider distal stump syndrome given chronic ICA occlusion. Extubated on 10/14, tolerating well. TTE non diagnostic. Currently on ASA; will start plavix when there's less potential for neurosurgical intervention. Maintain perfusion with SBP -143; lobsterman goal- normotensive. Continue Lipitor. ENT on board for the abscess - s/p abscess aspiration, on zosyn. Problem List Ischemic stroke (CMS/HCC) (POA: Yes) Carotid occlusion, right (POA: Yes) Carotid stenosis, left (POA: Yes) Weakness (POA: Unknown) Coronary artery disease (POA: No) JAMES (obstructive sleep apnea) (POA: Yes) COPD (chronic obstructive pulmonary disease) (CMS/HCC) (POA: Unknown) Stage 3 chronic kidney disease (CMS/HCC) (POA: Unknown) Peritonsillar abscess (POA: Yes) Dyspnea (POA: Yes) Respiratory acidosis (POA: Yes) Hx of completed stroke (POA: Yes) DM2 (diabetes mellitus, type 2) (CMS/HCC) (POA: Yes) Primary hypertension (POA: Yes) Smoker (POA: Yes) See Resident note for the remaining problem specific plan. 7 MEDICATIONS FOR CURRENT ENCOUNTER: SCHEDULED MEDICATIONS: 0.9% NaCl injection 3 mL, Intracatheter, q8h 0.9% NaCl injection 3 mL, Intracatheter, q8h albuterol-ipratropium (Duo-Neb) nebulizer solution 3 mL, Inhalation, q6h amLODIPine (Norvasc) tablet 10 mg, Enteral Tube, QDAY ampicillin-sulbactam (Unasyn) 3 g in 0.9% NaCl IV 100 mL IVPB, Intravenous, q6h artificial tears ophthalmic ointment, Each Eye, q8h aspirin chew tablet 81 mg, Enteral Tube, QDAY budesonide (Pulmicort) nebulizer suspension 500 mcg, Inhalation, QDAY heparin injection 5,000 Units, Subcutaneous, q8h insulin glargine (Lantus) pen 10 Units, Subcutaneous, q24h insulin lispro (HumaLOG;ADMelog) 100 UNIT/ML pen 0-24 Units, Subcutaneous, q4h losartan (Cozaar) tablet 25 mg, Enteral Tube, QDAY melatonin tablet 8 mg, Enteral Tube, QDay 2030 nicotine (Nicoderm CQ) patch 21 mg, Transdermal, QDAY perflutren lipid microsphere (Definity) injection 0.5 mL, Intravenous, intra- Procedure multiple ?? rosuvastatin (Crestor) tablet 40 mg, Enteral Tube, QDAY ?? CONTINUOUS MEDICATIONS: PRN MEDICATIONS: Or Or 0.9% NaCl injection 1-10 mL, Intracatheter, PRN 0.9% NaCl injection 3 mL, Intracatheter, PRN acetaminophen (Tylenol) suppository 650 mg, Rectal, q4h PRN acetaminophen (Tylenol) tablet 650 mg, Enteral Tube, q6h PRN albuterol (Proventil;Ventolin) (5 MG/ML) 0.5% nebulizer solution 2.5 mg, Inhalation, q6h PRN atropine injection 1 mg, Intravenous, Once PRN dextrose 10 % IV bolus, Intravenous, PRN dextrose 10 % IV bolus, Intravenous, PRN glucagon (Glucagen) injection 1 mg, Subcutaneous, PRN glucose (Diabetic Use) (Dex4 Glucose) oral liquid, Oral, PRN glucose (Diabetic Use) oral gel, Oral, PRN glucose chew tablet 4 tablet, Oral, PRN ?? polyethylene glycol 3350 (Miralax) packet 17 g, Enteral Tube, QDAY PRN Patient Vitals for the past 24 hrs: Temp Pulse Resp BP 10/19/22 0529 -- 63 18 -- 10/19/22 0507 -- 57 -- -- 10/19/22 0359 98.6 ??F (37 ??C) 58 20 169/62 10/19/22 0021 -- 59 18 -- 10/19/22 0000 98.1 ??F (36.7 ??C) 56 20 148/64 10/18/222011 -- -- -- 166/64 10/18/22 1952 98.9 ??F (37.2 ??C) 60 -- (!) 182/63 10/18/22 1711 -- 64 17 -- 10/18/22 1601 97.8 ??F (36.6 ??C) 63 -- (!) 184/85 10/18/22 1234 -- 57 -- 166/61 10/18/22 1210 -- 61 21 -- 10/18/22 0758 97.9 ??F (36.6 ??C) 49 -- 171/73 Recent Labs Component Name 10/18/22230010/18/227 10/17/22 0044 NA 146* 147* 145 CL 115* 117* 114* CO2 BUN 37* 40* 55* CREATININE 1.01 1.07 1.43* CALCIUM 9.2 9.0 9.1 PHOS 3.2 2.9 2.5* Recent Labs Component Name 10/18/22230010/18/22 0155 10/17/22 0044 WBC 9.8 9.1 9.4 RBC 3.67* 3.77* 4.22* HGB 10.8* 11.0* 12.3 HCT 32.3* 33.8* 38.2 Recent Labs Component Name 10/14/22 0118 10/13/22 0228 12/12/21 0205 CHOL - 148 188 TRIG 200* 117 216* HDL - 40* 33* LDLCALC - 85 112* Recent Labs Component Name 10/12/22223012/11/21 1227 HGBA1C 7.7* 7.1* EAG 174 157 Recent Labs Component Name 10/18/22230010/18/22 0155 10/17/22 0044 PLTCOUNT 165 182 170 * Palma Moran, MALU - 10/18/2022 8:15 AM CDT [facility] Swallow Treatment Patient: Esperanza Chaparro Med Record Number: [id number] Date of : 1955 Age: [age] year old PPE: PPE worn by staff: gloves Impressions: Mild oral dysphagia, suspected pharyngeal dysphagia in the setting of CVA. CHEMISTRY PHYSICS TEACHER assisted pt to perform thorough oral care prior to initiation of PO trials. Anterior loss noted with thin liquids. Pt continues to present with clinical indicators of aspiration with thin liquids including immediate cough and wet vocal quality. Oral care is inadequate, dried secretions noted coating oral cavity on arrival. MBSS recommended to further evaluate oropharyngeal swallow function. Recommendations: Diet Liquids Recommendation: (P) NPO Diet Solids Recommendation: (P) NPO Recommended Form of Meds: (P) Feeding Tube Please provide oral care 3-4x/day including brushing tongue, gums, and teeth to decrease risk of aspiration related complications. Recommended Tests/Consults: Recommendations: (P) NPO;With Ice Chips PRN;Modified Barium Swallow Study;Dysphagia Treatment Discharge Recommendations: Speech therapy is recommended to improve swallow function. SUBJECTIVE: Patient Goals: To drink some water OBJECTIVE: Level of Consciousness: alert Orientation Level: oriented x 4 Positioning: Upright in bed Respiratory Status: nasal cannula: 2lpm Swallow Trials: Ice chips: Presentation: (P) Spoon-Assisted Oral: (P) Within Functional Limits Pharyngeal: (P) No signs/symptoms of aspiration Thin Liquid: Presentation: (P) Straw-Assisted Oral: (P) Spillage Right Pharyngeal: (P) Cough - Immediate;Wet Vocal Quality Assessment: Primary Diagnostic Impression - Oral: (P) Mild Primary Diagnostic Impression - Pharyngeal: (P) Moderate (Suspected) Treatment/Education/Interventions: While performing CHEMISTRY PHYSICS TEACHER, Patient was instructed in: results of swallow evaluation, clinical signs of aspiration , and recommendations for NPO status given patient's elevated aspiration risk. Patient demonstrated Fair understanding of instructions given. Physician contacted regarding results of treatment session. INFORMED CONSENT TO TREATMENT: Plan of care including recommended therapy, goals and frequency, discussed with patient who understands and agrees to proceed. Short Term Goals Patient will participate in an instrumental swallow assessment as appropriate. Etl Bi Developer Goal (s): Patient to be independent/baseline with functional mobility and self care and be able to safely discharge to prior level of care. Plan: Modified barium swallow study Palma Powers M.A. [facility]-CHEMISTRY PHYSICS TEACHER Speech Language Pathologist * Gregorio Khan MD - 10/18/2022 8:11 AM CDT Images from the original note were not included. I have seen and examined the patient with the resident and I agree with the findings and plan of care as documented by the resident. Date of Service: 10/18/2022 Gregorio Khan MD Esperanza Chaparro is a 67 year old M??with hx of right ICA occlusion and R MCA infarction and peritonsillar abscess presented on 10/12 to the [place] ED for somnolence, left-sided hemiplegia and right-sided gaze deviation. Upon arrival to [facility] S/p TNK and intubation for respiratory distress. Angiogram 01/2022 showed R ICA occlusion.?? Admitted to ICU. MRI right MCA and SHEA cortical infarcts of the same acuteage. Based on distribution and appearance of the acute lesions etiology is possibly flow failure given limited baseline supply through the collateral circulation (AComm and ECA) which could have happened in the context of the infection. Alternatively may consider distal stump syndrome given chronic ICA occlusion. Extubated on 10/14, tolerating well. TTE non diagnostic. Currently on ASA; will start plavix when there's less potential for neurosurgical intervention. Maintain perfusion with SBP -660; lobsterman goal- normotensive. Continue Lipitor. ENT on board for the abscess - s/p abscess aspiration, on zosyn. Problem List Ischemic stroke (CMS/HCC) (POA: Yes) Carotid occlusion, right (POA: Yes) Carotid stenosis, left (POA: Yes) Weakness (POA: Unknown) Coronary artery disease (POA: No) JAMES (obstructive sleep apnea) (POA: Yes) COPD (chronic obstructive pulmonary disease) (CMS/HCC) (POA: Unknown) Stage 3 chronic kidney disease (CMS/HCC) (POA: Unknown) Peritonsillar abscess (POA: Yes) Dyspnea (POA: Yes) Respiratory acidosis (POA: Yes) Hx of completed stroke (POA: Yes) DM2 (diabetes mellitus, type 2) (CMS/HCC) (POA: Yes) Primary hypertension (POA: Yes) Smoker (POA: Yes) See Resident note for the remaining problem specific plan. 6 MEDICATIONS FOR CURRENT ENCOUNTER: SCHEDULED MEDICATIONS: 0.9% NaCl injection 3 mL, Intracatheter, q8h 0.9% NaCl injection 3 mL, Intracatheter, q8h albuterol-ipratropium (Duo-Neb) nebulizer solution 3 mL, Inhalation, q6h amLODIPine (Norvasc) tablet 10 mg, Enteral Tube, QDAY ampicillin-sulbactam (Unasyn) 3 g in 0.9% NaCl IV 100 mL IVPB, Intravenous, q6h artificial tears ophthalmic ointment, Each Eye, q8h aspirin chew tablet 81 mg, Enteral Tube, QDAY budesonide (Pulmicort) nebulizer suspension 500 mcg, Inhalation, QDAY heparin injection 5,000 Units, Subcutaneous, q8h insulin glargine (Lantus) pen 10 Units, Subcutaneous, q24h insulin lispro (HumaLOG;ADMelog) 100 UNIT/ML pen 0-24 Units, Subcutaneous, q4h losartan (Cozaar) tablet 25 mg, Enteral Tube, QDAY melatonin tablet 8 mg, Enteral Tube, QDay 2030 nicotine (Nicoderm CQ) patch 21 mg, Transdermal, QDAY perflutren lipid microsphere (Definity) injection 0.5 mL, Intravenous, intra- Procedure multiple rosuvastatin (Crestor) tablet 40 mg, Enteral Tube, QDAY ?? [COMPLETED] potassium - sodium phosphates (Phos-Nak) powder 1 packet, Enteral Tube, TID WC ?? CONTINUOUS MEDICATIONS: PRN MEDICATIONS: Or Or 0.9% NaCl injection 1-10 mL, Intracatheter, PRN 0.9% NaCl injection 3 mL, Intracatheter, PRN acetaminophen (Tylenol) suppository 650 mg, Rectal, q4h PRN acetaminophen (Tylenol) tablet 650 mg, Enteral Tube, q6h PRN albuterol (Proventil;Ventolin) (5 MG/ML) 0.5% nebulizer solution 2.5 mg, Inhalation, q6h PRN atropine injection 1 mg, Intravenous, Once PRN dextrose 10 % IV bolus, Intravenous, PRN dextrose 10 % IV bolus, Intravenous, PRN glucagon (Glucagen) injection 1 mg, Subcutaneous, PRN glucose (Diabetic Use) (Dex4 Glucose) oral liquid, Oral, PRN glucose (Diabetic Use) oral gel, Oral, PRN glucose chew tablet 4 tablet, Oral, PRN ?? polyethylene glycol 3350 (Miralax) packet 17 g, Enteral Tube, QDAY PRN Patient Vitals for the past 24 hrs: Temp Pulse Resp BP 10/18/22 0450 -- 54 20 -- 10/18/22 0348 -- -- -- 171/67 10/18/22 0338 98.6 ??F (37 ??C) 57 20 (!) 183/76 10/18/22 0238 -- -- -- 167/75 10/18/22 0001 98.6 ??F (37 ??C) 56 20 166/72 10/17/22 1954 98.9 ??F (37.2 ??C) 65 19 145/73 10/17/22 1800 -- 99 21 -- 10/17/22 1300 -- 62 18 167/66 10/17/22 1200 99 ??F (37.2 ??C) 73 26 178/87 10/17/22 1100 -- 68 10 179/85 10/17/22 1030 -- 65 16 -- 10/17/22 1000 -- 55 22 160/79 10/17/22 0900 -- 53 19 169/84 Recent Labs Component Name 10/18/22 01510/17/22 0044 10/16/22 0029 NA 147* 145 143 CL 117* 114* 116* CO2 23 23 20* BUN 40* 55* 60* CREATININE 1.07 1.43* 1.72* CALCIUM 9.0 9.1 8.7 PHOS 2.9 2.5* 3.0 Recent Labs Component Name 10/18/2215410/17/22 0044 10/16/22 0029 WBC 9.1 9.4 10.4 RBC 3.77* 4.22* 3.78* HGB 11.0* 12.3 11.0* HCT 33.8* 38.2 33.9* Recent Labs Component Name 10/14/22 0118 10/13/22 0228 12/12/21 0205 CHOL - 148 188 TRIG 200* 117 216* HDL - 40* 33* LDLCALC - 85 112* Recent Labs Component Name 10/12/22 2231 12/11/21 1227 HGBA1C 7.7* 7.1* EAG 174 157 Recent Labs Component Name 10/18/22 0155 10/17/22 0044 10/16/22 0029 PLTCOUNT 182 170 179 * Fito Hawkins MD - 10/18/2022 5:04 AM CDT Stroke Service Daily Progress Note Esperanza Chaparro Age: [age] year old Date of : 1955 Date of Admission: 10/12/2022 Hospital Day: 6 67 yo M hx of 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 S/p tnk at [facility] and intubated due to respiratory distress. Angiogram on 01/2022 shows R ICA occlusion. Admitted to NeuroICU. MRI with right MCA and SHEA cortical infarcts of the same acute age. 10/15: EEG with no epileptiform discharges. Patient extubated successfully this AM 10/16: Repeat CTH with slight increase in MLS. 10/17: Repeat CTH no significant difference from prior. Transfer to floor orders placed today given this. Subjective Interval History: No acute overnight events. To have barium swallow study today. Objective Patient Vitals for the past 24 hrs: BP Temp Temp src Pulse Resp SpO2 10/18/22 0450 -- -- -- 54 20 95 % 10/18/22 0348 171/67 -- -- -- -- -- 10/18/22 0338 (!) 183/76 98.6 ??F (37 ??C) Axillary 57 20 93 % 10/18/22 0238 167/75 -- -- -- -- -- 10/18/22 0001 166/72 98.6 ??F (37 ??C) Axillary 56 20 98 % 10/17/22 1954 145/73 98.9 ??F (37.2 ??C) Axillary 65 19 95 % 10/17/22 1800 -- -- -- 99 21 97 % 10/17/22 1300 167/66 -- -- 62 18 94 % 10/17/22 1200 178/87 99 ??F (37.2 ??C) Axillary 73 26 (!) 88 % 10/17/22 1100 179/85 -- -- 68 10 90 % 10/17/22 1030 -- -- -- 65 16 90 % 10/17/22 1000 160/79 -- -- 55 22 91 % 10/17/22 0900 169/84 -- -- 53 19 95 % 10/17/22 0800 172/73 99.5 ??F (37.5 ??C) Oral 53 17 92 % 10/17/22 0600 177/75 -- -- 48 20 94 % 10/17/22 0516 -- -- -- 56 14 94 % Intake/Output Summary (Last 24 hours) at 10/18/2022 0504 Last data filed at 10/18/2022 0456 Gross per 24 hour Intake 836.29 ml Output 2150 ml Net -1313.71 ml Exam: Patient awake with eyes open and following commands. Pupils are equal, briskly reactinve. Speech: Dysarthric but fluent. Comprehension is intact. Follows commands on right side. No movement on L side BRITT cerebellar and gait. Labs: Recent Labs Component Name 10/18/225 10/17/22 0044 10/16/22 0029 WBC 9.1 9.4 10.4 RBC 3.77* 4.22* 3.78* HGB 11.0* 12.3 11.0* HCT 33.8* 38.2 33.9* Recent Labs Component Name 10/18/2215610/17/22 0044 10/16/22 0029 NA 147* 145 143 CL 117* 114* 116* CO2 20* BUN 40* 55* 60* CREATININE 1.07 1.43* 1.72* CALCIUM 9.0 9.1 8.7 No results for input(s): MG in the last 28013 hours. Recent Labs Component Name 10/18/22 0157 10/17/22 0044 10/16/22 0029 PHOS 2.9 2.5* 3.0 Recent Labs Component Name 10/12/22202001/19/22 0948 12/11/21 1227 PT 13.8 12.4 13.0 INR 1.1 0.9 1.0 PTT - - 35.2 No results for input(s): A1C in the last 70115 hours. Recent Labs Component Name 10/14/22 0118 10/13/22 0228 12/12/21 0205 CHOL - 148 188 HDL - 40* 33* LDLCALC - 85 112* TRIG 200* 117 216* Recent Labs Component Name 10/16/22 0029 TSH 1.008 Recent Labs Component Name 12/13/21 0301 12/12/21 1229 12/12/21 0205 TROPONINI 0.046* 0.039* 0.042* ECHO TRANSTHORACIC W BUBBLE STUDY Result Date: 10/15/2022 ??? Left??Ventricle: Left ventricle is mildly dilated. Normal systolic function. EF by 2D Ayala biplane is 61%. Regional wall motion abnormalities present. See diagram for wall motion findings. Normal diastolic function. ??? Left??Atrium: No interatrial septum shunt present viewable with agitatedsaline. CT HEAD WO CONTRAST Result Date: 10/14/2022 PROCEDURE: CT HEAD WO CONTRAST DATE/TIME OF EXAM: 10/14/2022 10:36 AM CLINICAL INFORMATION: None relevant/not provided if blank. Indication: R53.1: Weakness Additional History: COMPARISON: MRI brain 10/14/2022, CT head 10/13/2022 TECHNIQUE: Noncontrast CT brain was performed utilizing standard protocol. CT dose reduction technique was used, including Automated Exposure Control. FINDINGS: Interval increase in the confluent hypodensity involving the right frontal parietal and temporal lobes right MCA territory and also in the right SHEA territory consistent with known acute evolving infarct. There is localized mass effect with effacement of the sulci. No significant midline shift. Chronic infarct inthe right occipital lobe. Previously noted minimal petechial hemorrhages on MRI are not conspicuouson this study could be secondary to technique. Minimal mass effect on the right lateral ventricle. Mild interval decrease in the caliber of right lateral ventricle compared to the prior study. Mild interval decrease in the caliber of ventricles compared to prior study could be secondary to edema. For example third ventricle previously measured 8 mm now measures about 6 mm. Basilar cisterns are patent. No evidence of transtentorial or tonsillar herniation. Redemonstration of expansile lesion invo lving the the clivus No interval change in the expansile soft tissue lesion along the left lateral aspect of the sella with the thinning of the bone, unchanged compared to study from 12/11/2021 with the T2 hyperintensity on MRIs could be secondary to benign lesions like mucoceles however no postcontrast imaging is available for accurate characterization. Otherwise no acute osseous abnormality. Bilateral cataract replacement. IMPRESSION: 1. Redemonstration of large confluent evolving acute infarction in the right MCA territory and right SHEA territory involving most of the right cerebral hemisphere with local mass effect. No significant midline shift or evidence of herniation. No large hematoma however minimal petechial hemorrhages cannot be excluded. > Interpreting Provider: Re Sage MD on 10/14/2022 4:40 PM MRI BRAIN WO CONTRAST Result Date: 10/14/2022 PROCEDURE: MRI BRAIN WO CONTRAST, DATE/TIME OF EXAM: 10/14/2022 12:00 AM, LOCATION [facility] INDICATION: R53.1: Weakness ADDITIONAL CLINICAL INFORMATION: Ordering Provider Reason ForExam: Acute ischemic stroke EXAMINATION: Magnetic resonance imaging [...] basal ganglia, including putamen and caudate nuclei. Thisbelong to the right SHEA and MCA territory. [...] Encephalomalacia/gliosis is seen in the region of rightsuperior frontal lobe (series 9 image 19) and right temporoparietal region (series 9 image 10). Thecorpus callosum and sella appear normal. The posterior fossa, brainstem, and craniocervical junction appear normal. Other than bilateral cataract extractions, the visualized portions of the orbits appear grossly unremarkable. There is mild paranasal sinus disease. There is mild opacification in themastoid air cells, left more than right. The patient is intubated. Fluid and retained secretions inthe nasopharynx. The calvarium and visualized cervical spine [...] verification. Report dictated by Miguel Escamilla MD (residential tech) Sundar Orourke MD have personally reviewed and interpreted this examination/study. > Interpreting Provider: Sundar Devine MD on 10/14/2022 1:12 PM XR ABDOMEN KUB PORTABLE Result Date: 10/14/2022 PROCEDURE: XR ABDOMEN KUB PORTABLE, DATE/TIME OF EXAM: 10/13/2022 10:23 PM, LOCATION [facility] INDICATION: R13.10: Dysphagia, unspecified type ADDITIONAL CLINICAL INFORMATION: Ordering Provider Reason For Exam: OG tube placement COMPARISON: Abdominal radiograph 10/13/2022 at 10:52 AM FINDINGS/IMPRESSION: Enteric tube courses below the diaphragm with the distal tip superimposing thegastric body. Partially imaged colonic gaseous distention, increased from the prior exam. Report dictated by Oscar Santizo MD (residential tech). CEDRIC Orourke MD have personally reviewedand interpreted this examination/study. > Interpreting Provider: CEDRIC FLORES MD on 10/14/2022 7:[address] HEAD NON CONTRAST Result Date: 10/13/2022 EXAM: CT HEAD WO CONTRAST, DATE/TIME OF EXAM: 10/13/2022 8:29 PM, LOCATION: [facility] HISTORY: R53.1: Weakness ADDITIONAL CLINICAL INFORMATION: Ordering Provider Reason For Exam: Post tPa imaging EXAMINATION: CT scan of the head without intravenous contrast TECHNIQUE: CT of the head was performed without intravenous contrast according to standard protocol. CT dose reduction technique was used, including Automated Exposure Control. COMPARISON: Head CTs 10/13/2022 at 1:07 AM and 10/12/2022. FINDINGS: See impression. IMPRESSION: 1.Further increased conspicuity of large areas of hypoattenuation with loss of goldman-white differentiation involving the right frontal, parietal, and temporal lobes in addition to the right insula, which is consistent with an evolving large acute infarct corresponding to the right middlecerebral artery (MCA) vascular territory. 2.Further increased conspicuity of a moderately-size areaof hypoattenuation with loss of goldman-white differentiation along the parasagittal right frontal lobe, consistent with an evolving large acute infarct corresponding to the right anterior cerebral artery (SHEA) vascular territory. 3.No evidence of hemorrhagic conversion, significant midline shift, brain herniation, or evidence of hydrocephalus. 4.Please refer to recently reported head CTs 10/12/2022 and 10/12/2022 for description of additional chronic findings. Results of this exam were verbally discussed by Dr. Zelda iWllams with Dr. Brannon on 10/13/2022 at 9:02 PM for a Critical Stroke Protocol withreadback confirmation and verification. The images were reviewed by attending physician Dr. Zelda Willams prior to this communication. > Interpreting Provider: Zelda Willams MD, PhD on 10/13/2022 9:09 PM XR CHEST 1VW PORTABLE Result Date: 10/13/2022 PROCEDURE: XR CHEST 1VW PORTABLE, DATE/TIME OF EXAM: 10/13/2022 1:53 AM, LOCATION [facility] INDICATION: R06.00: Dyspnea, unspecified type ADDITIONAL CLINICAL INFORMATION: Ordering Provider Reason For Exam: ETT position COMPARISON: Chest x-ray 10/13/2022. FINDINGS/IMPRESSION: Endotracheal tube terminates at the level of thoracic inlet/mid thoracic trachea, approximately 7 cm above the cathi. A loop recorder superimposes the left chest. There is minimal basilar atelectasis. There is no focal consolidation, pleural effusion, or pneumothorax. The heart size is normal and mediastinal contours are normal. > Dictated by Noe Bravo MD (residential tech). Wen Orourke MD have personally reviewed and interpreted this examination/study. > Interpreting Provider: Wen Lee MD on 10/13/2022 2:16 PM XR CHEST 1VW PORTABLE Result Date: 10/13/2022 EXAMINATION: XR CHEST 1VW PORTABLE HISTORY: E87.29: Respiratory acidosis COMPARISON: Chest radiograph 10/13/2022 at 1:46 AM FINDINGS/IMPRESSION: Lines: *Endotracheal tube terminates within the mid thoracic trachea. *A loop recorder is partially visualized superimposing the left chest. Aside from mildbibasilar atelectasis, there is no confluent consolidation. No pleural effusion is seen. No pneumothorax is identified. The cardiac silhouette is within normal limits. Aortic atherosclerosis is noted. The superior mediastinal contours are within normal limits. No acute osseous abnormality is identified. Report dictated by Oscar Santizo M.D. (residential tech) 10/13/2022 7:05 AM ICEDRIC MD have personally reviewed and interpreted this examination/study. > Interpreting Provider: CEDRIC FLORES MD on 10/13/2022 2:14 PM XR ABDOMEN KUB PORTABLE Result Date: 10/13/2022 PROCEDURE: XR ABDOMEN KUB PORTABLE, DATE/TIME OF EXAM: 10/13/2022 11:01 AM, LOCATION [facility] INDICATION: R53.1: Weakness ADDITIONAL CLINICAL INFORMATION: Ordering Provider Reason For Exam: MRI COMPARISON: None. TECHNIQUE: Supine frontal radiograph of the abdomen. FINDINGS: A looprecorder overlies the left axilla. No evidence of retained metallic density foreign bodies within the abdomen. The urinary bladder is opacified with contrast material. Moderate gas and stool are present. There are no findings to suggest bowel obstruction, free intraperitoneal gas or pneumatosis. Noabnormal calcifications are seen. No bone abnormality is seen. IMPRESSION: 1.A loop recorder overlies the left axilla. No evidence of retained metallic density foreign bodies within the abdomen. 2.Nonobstructive bowel gas pattern. Report dictated by Oscar Santizo M.D. (residential tech) 10/13/2022 11:03 AM Adiel Orourke MD have personally reviewed and interpreted this examination/study. > Interpreting Provider: Adiel Lynn MD on 10/13/2022 1:03 PM XR CHEST 1VW PORTABLE Result Date: 10/13/2022 EXAMINATION: XR CHEST 1VW PORTABLE HISTORY: R06.00: Dyspnea, unspecified type E87.29: Respiratory acidosis COMPARISON: Chest radiograph 10/12/2022 FINDINGS/IMPRESSION: Lines: *Interval insertion of endotracheal tube which terminates in the proximal thoracic trachea, 6 cm from the cathi. *A loop recor manish superimposes the left chest. No confluent consolidation is noted. No pleural effusion is seen. No pneumothorax is identified. The heart is borderline enlarged. Aortic atherosclerosis is noted. The superior mediastinal contours are within normal limits. No acute osseous abnormality is identified. Report dictated by Oscar Santizo M.D. (residential tech) 10/13/2022 7:05 AM Adiel Orourke MD have personally reviewed and interpreted this examination/study. > Interpreting Provider: Adiel Lynn MD on 10/13/2022 11:[address] NECK SOFT TISSUE W CONT Result Date: 10/13/2022 PROCEDURE: CT NECK SOFT TISSUE W CONT, DATE/TIME OF EXAM: 10/13/2022 1:29 AM, LOCATION [facility] INDICATION: R06.00: Dyspnea, unspecified type ADDITIONAL CLINICAL INFORMATION: Ordering Provider Reason For Exam: Peritonsillar abscess Technologist Note: None. Additional: Per chart review, patient was difficult to intubate and multiple attempts were required. CONTRAST: IOPAMIDOL 76 % IV SOLN:75 mL EXAMINATION: Computed tomography (CT) of the neck with contrast TECHNIQUE: CT of theneck was performed following the uneventful administration of 75 mL Isovue-370 contrast according to standard protocol. CT dose reduction technique was used, including Automated Exposure Control. COMP ARISON: CT angiogram of the neck performed 10/30 [...] kenneth bullosa.. Paraseptal emphysema and lung scarring. IMPRESSION: 1.Findings concerning for right peritonsillar abscess with associated diffuse pharyngitis and extensive laryngeal edema, extending to the level of the supraglottic larynx, resulting in airway compromise status post endotracheal intubation. Preliminary findings were discussed with the patient's care provider, Dr. Brannon by Dr. Cleveland via telephone at 0248 on 10/13/2022 with readback comprehension and verification. > Dictated by Dean Cleveland M.D. (residential tech) Sundar Orourke MD have personally reviewed and interpreted this examination/study. > Interpreting Provider: Sundar Devine MD on 10/13/2022 10:[address] HEAD WO CONTRAST Result Date: 10/13/2022 PROCEDURE: CT HEAD WO CONTRAST, DATE/TIME OF EXAM: 10/13/2022 1:26 AM, LOCATION [facility] INDICATION: I63.9: Ischemic stroke (CMS/HCC) EXAMINATION: Computed tomography (CT) of the head without contrast ADDITIONAL CLINICAL INFORMATION: Ordering Provider Reason For Exam: Acute respiratory distress. R/o central causes Technologist Note: None. Additional: None. TECHNIQUE: CT of the head was performed without contrast according to standard protocol. CT dose reduction technique was used, including Automated Exposure Control. COMPARISON: CT of the head from 10/12/2022. FINDINGS: No acute intra- or extra-axial fluid collections are identified. There is mild cerebral volume loss with associated ex vacuo ventricular dilatation. The basilar cisterns are patent. No significant mass effect or midline shift is seen. There has been interval mild diffuse but subtle hypoattenuation and loss of orozco-white matter differentiation involving larger portions of the right frontal and right temp oral lobes as well as the right insula, and possibly posterior lateral temporal lobes which could represent acute evolving acute right MCA territory infarcts. MRI of the brain is recommended for further evaluation. Additional subtle hypoattenuation along the parasagittal right frontal lobe is also noted. Redemonstration of chronic infarcts with areas of encephalomalacia and gliosis in the right frontal and right parietal as well as the right occipital lobes compatible with chronic right MCA, SHEA, and BOARD MEMBER territory infarcts. Additional tiny lacunar infarcts in the bilateral cerebellar hemispheres are again noted. Periventricular white matter hypoattenuation is indicative of chronic small vess el ischemic disease. There is vascular calcification of the carotid siphons. No acute calvarial fracture is identified. Other than bilateral cataract extractions, the orbits appear normal. There is mild paranasal sinus disease. Opacification of the nasal passages and the nasopharynx. The patient is intubated. The mastoid air cells are grossly clear. Calcific densities along the left frontal scalpare again noted. No soft tissue abnormality is otherwise identified. IMPRESSION: 1.Suggestion of interval diffuse edema in the right MCA territory concerning for evolving right MCA territory ischemia. MRI of the brain is recommended for further evaluation.. 2.Additional chronic findings as outlined above. Results of this exam were communicated with closed loop confirmation to Dr. Mendenhall by Dr. Devine on 10/13/2022 at 9:54 AM with read back compression and verification. Report dictated by Romain Mckee MD, PhD (residential tech). I, Sundar Devine MD have personally reviewed and interpreted this examination/study. > Interpreting Provider: Sundar Devine MD on 10/13/2022 10:21 AM XR CHEST 1VW PORTABLE Result Date: 10/13/2022 EXAMINATION: XR CHEST 1VW PORTABLE HISTORY: R53.1: Weakness COMPARISON: Chest radiograph dated 12/11/2021 FINDINGS/IMPRESSION: Lines: *A loop recorder superimposes the left chest. No confluent consolidation is noted. No pleural effusion is seen. No pneumothorax is identified. The heart is enlarged for this AP view. Aortic atherosclerosis is noted. The superior mediastinal contours are within normallimits. No acute osseous abnormality is identified. No free air is seen under the diaphragm. > Interpreting Provider: CEDRIC FLORES MD on 10/13/2022 6:[address] ANGIO BRAIN NECK STROKE Result Date: 10/12/2022 EXAM: CT ANGIO BRAIN NECK STROKE, DATE/TIME OF EXAM: 10/12/2022 7:42 PM, LOCATION: [facility] HISTORY: Code Stroke EXAMINATION: CT angiogram images [...] right middle cerebral artery (MCA) via the [place] of [place]u/patent anterior communicating artery. Diminished opacification of the right MCA M1 segment and distal branches with notable markedly diminutive opacification versus nonopacification of the MCA M3 segment and beyond. No occlusion or hemodynamical ly significant stenosis elsewhere of the major intracranial arteries. Patent intracranial left ICA,left MCA, bilateral ACAs, vertebral artery V4 segments, [...] ARTERIES: No occlusion or hemodynamically significant stenosis. Noevidence of dissection. OTHER: Partially imaged lung apices [...] the right SHEA and MCA via the [place] of Arvizu. Diminished opacification of the right [...] communication. Report dictated by Gilbert Morrow MD (residential tech). I, Zelda Willams MD, PhD have personally reviewed and interpreted this examination/study. > Interpreting Provider: Zelda Willams MD, PhD on 10/12/2022 8:[address] BRAIN - Stroke Result Date: 10/12/2022 EXAM: CT BRAIN STROKE, DATE/TIME OF EXAM: 10/12/2022 7:32 PM, LOCATION: [facility] HISTORY: Code Stroke EXAMINATION: CT scan of [...] PARENCHYMA: No acute parenchymal hemorrhage. Apparent hypodensity ofthe right anterior temporal lobe and insular region, which is nonspecific and may be attributable to motion artifact or possibly representing areas of evolving acute infarct. No mass effect, midline shift, or brain herniation. Re-demonstrated areas of encephalomalacia involving the right frontal and right parietal lobes, consistent with chronic infarcts involving the right middle cerebral artery ( MCA) vascular territory and right anterior cerebral artery (SHEA)/MCA watershed territory. Re-demonstrated area of encephalomalacia involving the right occipital lobe, consistent with a chronic infarct involving the right posterior cerebral artery (BOARD MEMBER) vascular territory. Multiple small chronic lacunes of [...] tissues. Mildly expansile soft tissue lesion of [id number] of the sella turcica measuring 2.1 x 1.6 cm (09/03), which is associated with thinning of thedorsum sellae and is incompletely assessed on this [...] infarct. Recommend follow-up brain MRI without contrast forfurther evaluation. 3.Multiple chronic infarcts of the right cerebral hemisphere and multiple smallchronic lacunes of the left greater than right cerebellar hemispheres as described. 4.Mildly expansile soft tissue lesion of the mid-to-left aspect of the sella turcica measuring 2.1 x 1.6 cm, which is associated with thinning of the dorsum sellae and is incompletely assessed on this examination. Recommend follow-up sella MRI without and with contrast. Results of this exam were verbally discussedby Dr. Zelda Willams with Dr. Brannon on 10/12/2022 at 7:44 PM for a Critical Stroke Protocol with readback confirmation and verification. The images were reviewed by attending physician Dr. Zelda Willamsprior to this communication. > Interpreting Provider: Zelda Willams MD, PhD on 10/12/2022 8:20 PM Ischemic stroke (CMS/HCC) (POA: Yes) Carotid occlusion, right (POA: Yes) Carotid stenosis, left (POA: Yes) Weakness (POA: Unknown) Coronary artery disease (POA: No) JAMES (obstructive sleep apnea) (POA: Yes) COPD (chronic obstructive pulmonary disease) (CMS/HCC) (POA: Unknown) Stage 3 chronic kidney disease (CMS/HCC) (POA: Unknown) Peritonsillar abscess (POA: Yes) Dyspnea (POA: Yes) Respiratory acidosis (POA: Yes) Hx of completed stroke (POA: Yes) DM2 (diabetes mellitus, type 2) (CMS/HCC) (POA: Yes) Primary hypertension (POA: Yes) Smoker (POA: Yes) Assessment Esperanza Chaparro is a 67 year old male presenting 10/12 from [place] for left sided hemiparesis and aphasia. CTH with acute on chronic infarcts. CTA with chronic right ICA complete occlusion identified on Cerebral Angiogram in 01/2022. S/p TNK but MT not pursued due to low ASPECT score. MRI with right frontal, parietal, and temporal lobes consistent with known infarct in right MCA and SHEA territories with no hemorrhagic transformation. Mechanism is large artery. Flow failure possible given distribution and appearance of lesions on MRI, and also in the setting of infection which was being treated at [place].Proximal or distal stump syndrome can also be considered but less likely given both MCA and SHEA involvement. Stroke Type: Ischemic Stroke Mechanism: Large Artery: Flow failure vs. Carotid stump styndrome Plan R SHEA/MCA Territory Infarctions s/p tnk Chronic R ICA occlusion - Stroke workup complete - NSYG signed off for decompressive hemicraniectomy watch. - On aspirin 81 mg, Atorvastain 80 mg for secondary prevention - SBP goal 120-180 - Will add plavix when there is less potential for surgical intervention. Will likely need PEG tubeplacement given continued failure during swallow eval. - If patient has future ischemic vascular injury, can consider switching to anticoagulation with Single antiplatelet therapy. - Disposition: acute rehab recommendation from PT/OT. Blood Pressure Goals: SBP: 130-180 per NCC, 160 difficult to manage given BRYCE with oral antihypertensives. Core Measures tPA administration: yes Anti-thrombotic: Aspirin 81 mg Statin: Rosuvastatin 40 mg DVT prophylaxis: Subcutaneous heparin Swallow Evaluation: pending PT/OT Evaluation: pending Smoking cessation; will cancer genetic counselor: pending Individual Modifiable Risk Factors Hypertension: yes Hyperlipidemia: yes Diabetes: yes Atrial Fibrillation: no Tobacco: no Diabetes plan of care based on A1c: Patient's A1c is equal to or greater than 6.5%. For patients with diabetes (A1c >6.5%), SGLT-2 inhibitors or GLP-1 receptor agonists have been shown to reduce major adverse cardiovascular events. These medications require close follow up with PCP or yarn spinner and lab monitoring. Due to this reason, we have deferred treatment until outpatient follow up. Facility Manager Histology should be consulted to provide patient education. Patient will follow with PCP/Reconcilement Clerk after discharge for diabetes medications and continued disease management. Additional Hospital Problems: Dysphagia - Failed multiple pit crew support worker swallow evaluations -NGT in place - Barium swallow study today. If patient does not pass barium swallow study, IR/GI will be consulted for PEG tube placement tomorrow or Wednesday. Peritonsillar Abscess - Unasyn 3 g q6h per ENT - Extubated 10/15 - Day 10/14 unasyn today. Bradycardia First Degree AV Block - Holdoing home coreg - EKG on 10/12/2022 with First degree av block T2DM - A1C 7.7% - Lantus 15 U q24hr - BG goal 140-180 COPD -Hx smoking - Duonebs q4hr - Budesonide 500 mcg nebs qd JAMES - consider Cpap HTN - on Coreg 6.25 mg BID and Lisinopril 10 mg QD at home - Continue amlodipine 10 mg daily and Losartan 25 mg daily Hx CAD s/p stent: - Resumed home ASA - Resumed home Rosuvastatin 40 mg QD HLD - Home Rosuvastatin 40 mg Case findings discussed with Dr. Khan, Stroke Attending. Fito Hawkins MD Neurology Resident * Jesica Cleveland - 10/17/2022 3:27 PM CDT Weekend Social Work Progress Note Chart reviewed Patient was extubated 10/15/2022 Medically ready to transition to next level of care Post acute recommendation: Intense 3 hour per day multidisciplinary inpatient therapies Previous SW sent referrals sent However [facility] does not accept [employer] Primary SW to determine if Pt prefers to use [facility] or [employer] for insurance Payer/Plan Subscriber Name Rel Member # Group # [employer]* CHAPARROESPERANZA BETTS FRANKY Self [id number] [address] [employer] - [facility]* ESPERANZA CHAPARRO Self [id number] [address] [address] NOHEMI [place] MBA Weekend Energy Auditor [facility] [phone] 10/17/2022 3:27 PM * Luanne Barker RN - 10/17/2022 1:02 PM CDT Problem: Pain/Discomfort Goal: Patient exhibits reduced pain/discomfort as evidenced by pain scores Outcome: Progressing Goal: Patient uses pharmacological and non-pharmacological pain management strategies. Outcome: Progressing Goal: Patient verbalizes acceptable level of pain relief and ability to engage in desired activity. Outcome: Progressing Problem: Neurological Deficit Goal: Neurological status is stable or improving Outcome: Progressing Problem: Hemodynamic Status/Cardiac Output Goal: Patient has stable vital signs and fluid balance Outcome: Progressing Problem: Oxygenation/Respiratory Function Goal: Respiratory rate/effort will be within specified limits Outcome: Progressing Problem: Mobility Goal: Patient's mobility/activity will be maintained as optimum level for age, diagnosis and physical limitations Outcome: Progressing Goal: Continuum of care needs are further met through referral to outpatient services when appropriate. Outcome: Progressing Goal: Patient reports the ability to perform Activities of Daily Living. Outcome: Progressing Problem: Communication Impairment/Dysarthria Goal: Ability to express needs and understand communication Outcome: Progressing Problem: Nutrition Goal: Nutritional status is improving Outcome: Progressing Problem: Aspiration Precautions Goal: Patient's risk of aspiration is minimized Outcome: Progressing Problem: Glycemic Control Goal: Clinical indication of glycemia balance is achieved Outcome: Progressing Problem: Knowledge Deficit,Education,Discharge Plan Goal: The patient/family will understand cerebrovascular disease and its symptoms, treatment and management Outcome: Progressing Problem: Skin Integrity Goal: Skin integrity is maintained or improved Outcome: Progressing Problem: Fall Risk Goal: Fall risk and fall related injury risk are minimized (interventions related to the fall risk can be found in the flowsheet documentation) Outcome: Progressing Problem: Nutrient: Inadequate protein-energy intake Goal: Total intake will meet estimated nutrient needs Outcome: Progressing * Fito Hawkins MD - 10/17/2022 11:41 AM CDT Stroke Service Daily Progress Note Esperanza Chaparro Age: [age] year old Date of : 1955 Date of Admission: 10/12/2022 Hospital Day: [age] yo M hx of 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 S/p tnk at [facility] and intubated due to respiratory distress. Angiogram on 01/2022 shows R ICA occlusion. Admitted to NeuroICU. MRI with right MCA and SHEA cortical infarcts of the same acute age. 10/15: EEG with no epileptiform discharges. Patient extubated successfully this AM 10/16: Repeat CTH with slight increase in MLS. 10/17: Repeat CTH no significant difference from prior. Transfer to floor orders placed today given this. Subjective Interval History: See above. Objective Patient Vitals for the past 24 hrs: BP Temp Temp src Pulse Resp SpO2 Weight 10/17/22 1100 179/85 -- -- 68 10 90 % -- 10/17/22 1030 -- -- -- 65 16 90 % -- 10/17/22 1000 160/79 -- -- 55 22 91 % -- 10/17/22 0900 169/84 -- -- 53 19 95 % -- 10/17/22 0800 172/73 99.5 ??F (37.5 ??C) Oral 53 17 92 % -- 10/17/22 0600 177/75 -- -- 48 20 94 % -- 10/17/22 0516 -- -- -- 56 14 94 % -- 10/17/22 0500 168/83 -- -- 50 18 93 % -- 10/17/22 0400 177/76 -- -- 57 20 93 % 124.7 kg (275 lb) 10/17/22 0315 145/88 -- -- 63 12 94 % -- 10/17/22 0300 (!) 184/79 -- -- 68 9 94 % -- 10/17/22 0235 (!) 184/95 -- -- 56 19 96 % -- 10/17/22 0230 (!) 181/86 -- -- 53 12 96 % -- 10/17/22 0200 (!) 180/75 98.6 ??F (37 ??C) Oral 52 18 98 % -- 10/17/22 0105 176/78 -- -- 57 17 93 % -- 10/17/22 0000 166/68 98 ??F (36.7 ??C) -- 56 18 93 % -- 10/16/22 2304 -- -- -- 59 18 93 % -- 10/16/22 2300 171/80 -- -- 55 18 92 % -- 10/16/22 2200 166/83 98.5 ??F (36.9 ??C) Axillary 49 17 96 % -- 10/16/22 2100 161/70 -- -- 51 19 99 % -- 10/16/22 2000 145/72 98.8 ??F (37.1 ??C) Axillary 49 11 98 % -- 10/16/22 1900 160/66 -- -- 50 17 94 % -- 10/16/22 1800 152/69 -- -- 49 17 93 % -- 10/16/22 1700 162/68 -- -- 56 19 94 % -- 10/16/22 1657 -- -- -- 58 18 94 % -- 10/16/22 1600 172/79 99 ??F (37.2 ??C) Axillary 57 14 95 % -- 10/16/22 1500 149/68 -- -- 50 11 94 % -- 10/16/22 1400 166/78 -- -- 53 18 93 % -- 10/16/22 1300 158/65 -- -- 59 16 96 % -- 10/16/22 1200 157/67 -- -- 59 17 (!) 89 % -- Intake/Output Summary (Last 24 hours) at 10/17/2022 1141 Last data filed at 10/17/2022 0800 Gross per 24 hour Intake 1512.35 ml Output 2000 ml Net -487.65 ml Exam: Patient awake with eyes open and following commands. Pupils are equal, briskly reactinve. Speech: Dysarthric but fluent. Comprehension is intact. Follows commands on right side. No movement on L side BRITT cerebellar and gait. Labs: Recent Labs Component Name 10/17/224 10/16/229 10/14/222356 WBC 9.4 10.4 10.5 RBC 4.22* 3.78* 3.72* HGB 12.3 11.0* 10.9* HCT 38.2 33.9* 33.2* Recent Labs Component Name 10/17/22 0044 10/16/22 0029 10/14/22 2357 NA 145 143 138 CL 114* 116* 112* CO2 23 20* 18* BUN 55* 60* 63* CREATININE 1.43* 1.72* 2.16* CALCIUM 9.1 8.7 8.8 No results for input(s): MG in the last 86643 hours. Recent Labs Component Name 10/17/22 0044 10/16/22 0029 10/14/22 2357 PHOS 2.5* 3.0 3.7 Recent Labs Component Name 10/12/22202001/19/22 0948 12/11/21 1227 PT 13.8 12.4 13.0 INR 1.1 0.9 1.0 PTT - - 35.2 No results for input(s): A1C in the last 66221 hours. Recent Labs Component Name 10/14/22 0118 10/13/22 0228 12/12/21 0205 CHOL - 148 188 HDL - 40* 33* LDLCALC - 85 112* TRIG 200* 117 216* Recent Labs Component Name 10/16/22 0029 TSH 1.008 Recent Labs Component Name 12/13/21 0301 12/12/21 1229 12/12/21 0205 TROPONINI 0.046* 0.039* 0.042* ECHO TRANSTHORACIC W BUBBLE STUDY Result Date: 10/15/2022 ??? Left??Ventricle: Left ventricle is mildly dilated. Normal systolic function. EF by 2D Ayala biplane is 61%. Regional wall motion abnormalities present. See diagram for wall motion findings. Normal diastolic function. ??? Left??Atrium: No interatrial septum shunt present viewable with agitatedsaline. CT HEAD WO CONTRAST Result Date: 10/14/2022 PROCEDURE: CT HEAD WO CONTRAST DATE/TIME OF EXAM: 10/14/2022 10:36 AM CLINICAL INFORMATION: None relevant/not provided if blank. Indication: R53.1: Weakness Additional History: COMPARISON: MRI brain 10/14/2022, CT head 10/13/2022 TECHNIQUE: Noncontrast CT brain was performed utilizing standard protocol. CT dose reduction technique was used, including Automated Exposure Control. FINDINGS: Interval increase in the confluent hypodensity involving the right frontal parietal and temporal lobes right MCA territory and also in the right SHEA territory consistent with known acute evolving infarct. There is localized mass effect with effacement of the sulci. No significant midline shift. Chronic infarct inthe right occipital lobe. Previously noted minimal petechial hemorrhages on MRI are not conspicuouson this study could be secondary to technique. Minimal mass effect on the right lateral ventricle. Mild interval decrease in the caliber of right lateral ventricle compared to the prior study. Mild interval decrease in the caliber of ventricles compared to prior study could be secondary to edema. For example third ventricle previously measured 8 mm now measures about 6 mm. Basilar cisterns are patent. No evidence of transtentorial or tonsillar herniation. Redemonstration of expansile lesion invo lving the the clivus No interval change in the expansile soft tissue lesion along the left lateral aspect of the sella with the thinning of the bone, unchanged compared to study from 12/11/2021 with the T2 hyperintensity on MRIs could be secondary to benign lesions like mucoceles however no postcontrast imaging is available for accurate characterization. Otherwise no acute osseous abnormality. Bilateral cataract replacement. IMPRESSION: 1. Redemonstration of large confluent evolving acute infarction in the right MCA territory and right SHEA territory involving most of the right cerebral hemisphere with local mass effect. No significant midline shift or evidence of herniation. No large hematoma however minimal petechial hemorrhages cannot be excluded. > Interpreting Provider: Re Sage MD on 10/14/2022 4:40 PM MRI BRAIN WO CONTRAST Result Date: 10/14/2022 PROCEDURE: MRI BRAIN WO CONTRAST, DATE/TIME OF EXAM: 10/14/2022 12:00 AM, LOCATION [facility] INDICATION: R53.1: Weakness ADDITIONAL CLINICAL INFORMATION: Ordering Provider Reason ForExam: Acute ischemic stroke EXAMINATION: Magnetic resonance imaging [...] basal ganglia, including putamen and caudate nuclei. Thisbelong to the right SHEA and MCA territory. [...] Encephalomalacia/gliosis is seen in the region of rightsuperior frontal lobe (series 9 image 19) and right temporoparietal region (series 9 image 10). Thecorpus callosum and sella appear normal. The posterior fossa, brainstem, and craniocervical junction appear normal. Other than bilateral cataract extractions, the visualized portions of the orbits appear grossly unremarkable. There is mild paranasal sinus disease. There is mild opacification in themastoid air cells, left more than right. The patient is intubated. Fluid and retained secretions inthe nasopharynx. The calvarium and visualized cervical spine [...] verification. Report dictated by Miguel Escamilla MD (residential tech) ISundar MD have personally reviewed and interpreted this examination/study. > Interpreting Provider: Sundar Devine MD on 10/14/2022 1:12 PM XR ABDOMEN KUB PORTABLE Result Date: 10/14/2022 PROCEDURE: XR ABDOMEN KUB PORTABLE, DATE/TIME OF EXAM: 10/13/2022 10:23 PM, LOCATION [facility] INDICATION: R13.10: Dysphagia, unspecified type ADDITIONAL CLINICAL INFORMATION: Ordering Provider Reason For Exam: OG tube placement COMPARISON: Abdominal radiograph 10/13/2022 at 10:52 AM FINDINGS/IMPRESSION: Enteric tube courses below the diaphragm with the distal tip superimposing thegastric body. Partially imaged colonic gaseous distention, increased from the prior exam. Report dictated by Oscar Santizo MD (residential tech). ICEDRIC MD have personally reviewedand interpreted this examination/study. > Interpreting Provider: CEDRIC FLORES MD on 10/14/2022 7:[address] HEAD NON CONTRAST Result Date: 10/13/2022 EXAM: CT HEAD WO CONTRAST, DATE/TIME OF EXAM: 10/13/2022 8:29 PM, LOCATION: [facility] HISTORY: R53.1: Weakness ADDITIONAL CLINICAL INFORMATION: Ordering Provider Reason For Exam: Post tPa imaging EXAMINATION: CT scan of the head without intravenous contrast TECHNIQUE: CT of the head was performed without intravenous contrast according to standard protocol. CT dose reduction technique was used, including Automated Exposure Control. COMPARISON: Head CTs 10/13/2022 at 1:07 AM and 10/12/2022. FINDINGS: See impression. IMPRESSION: 1.Further increased conspicuity of large areas of hypoattenuation with loss of goldman-white differentiation involving the right frontal, parietal, and temporal lobes in addition to the right insula, which is consistent with an evolving large acute infarct corresponding to the right middlecerebral artery (MCA) vascular territory. 2.Further increased conspicuity of a moderately-size areaof hypoattenuation with loss of goldman-white differentiation along the parasagittal right frontal lobe, consistent with an evolving large acute infarct corresponding to the right anterior cerebral artery (SHEA) vascular territory. 3.No evidence of hemorrhagic conversion, significant midline shift, brain herniation, or evidence of hydrocephalus. 4.Please refer to recently reported head CTs 10/12/2022 and 10/12/2022 for description of additional chronic findings. Results of this exam were verbally discussed by Dr. Zelda Willams with Dr. Brannon on 10/13/2022 at 9:02 PM for a Critical Stroke Protocol withreadback confirmation and verification. The images were reviewed by attending physician Dr. Zelda Willams prior to this communication. > Interpreting Provider: Zelda Willams MD, PhD on 10/13/2022 9:09 PM XR CHEST 1VW PORTABLE Result Date: 10/13/2022 PROCEDURE: XR CHEST 1VW PORTABLE, DATE/TIME OF EXAM: 10/13/2022 1:53 AM, LOCATION [facility] INDICATION: R06.00: Dyspnea, unspecified type ADDITIONAL CLINICAL INFORMATION: Ordering Provider Reason For Exam: ETT position COMPARISON: Chest x-ray 10/13/2022. FINDINGS/IMPRESSION: Endotracheal tube terminates at the level of thoracic inlet/mid thoracic trachea, approximately 7 cm above the cathi. A loop recorder superimposes the left chest. There is minimal basilar atelectasis. There is no focal consolidation, pleural effusion, or pneumothorax. The heart size is normal and mediastinal contours are normal. > Dictated by oNe Bravo MD (residential tech). I, Wen Lee MD have personally reviewed and interpreted this examination/study. > Interpreting Provider: Wen Lee MD on 10/13/2022 2:16 PM XR CHEST 1VW PORTABLE Result Date: 10/13/2022 EXAMINATION: XR CHEST 1VW PORTABLE HISTORY: E87.29: Respiratory acidosis COMPARISON: Chest radiograph 10/13/2022 at 1:46 AM FINDINGS/IMPRESSION: Lines: *Endotracheal tube terminates within the mid thoracic trachea. *A loop recorder is partially visualized superimposing the left chest. Aside from mildbibasilar atelectasis, there is no confluent consolidation. No pleural effusion is seen. No pneumothorax is identified. The cardiac silhouette is within normal limits. Aortic atherosclerosis is noted. The superior mediastinal contours are within normal limits. No acute osseous abnormality is identified. Report dictated by Oscar Santizo M.D. (residential tech) 10/13/2022 7:05 AM CEDRIC Orourke MD have personally reviewed and interpreted this examination/study. > Interpreting Provider: CEDRIC FLORES MD on 10/13/2022 2:14 PM XR ABDOMEN KUB PORTABLE Result Date: 10/13/2022 PROCEDURE: XR ABDOMEN KUB PORTABLE, DATE/TIME OF EXAM: 10/13/2022 11:01 AM, LOCATION [facility] INDICATION: R53.1: Weakness ADDITIONAL CLINICAL INFORMATION: Ordering Provider Reason For Exam: MRI COMPARISON: None. TECHNIQUE: Supine frontal radiograph of the abdomen. FINDINGS: A looprecorder overlies the left axilla. No evidence of retained metallic density foreign bodies within the abdomen. The urinary bladder is opacified with contrast material. Moderate gas and stool are present. There are no findings to suggest bowel obstruction, free intraperitoneal gas or pneumatosis. Noabnormal calcifications are seen. No bone abnormality is seen. IMPRESSION: 1.A loop recorder overlies the left axilla. No evidence of retained metallic density foreign bodies within the abdomen. 2.Nonobstructive bowel gas pattern. Report dictated by Oscar Santizo M.D. (residential tech) 10/13/2022 11:03 AM IAdiel MD have personally reviewed and interpreted this examination/study. > Interpreting Provider: Adiel Lynn MD on 10/13/2022 1:03 PM XR CHEST 1VW PORTABLE Result Date: 10/13/2022 EXAMINATION: XR CHEST 1VW PORTABLE HISTORY: R06.00: Dyspnea, unspecified type E87.29: Respiratory acidosis COMPARISON: Chest radiograph 10/12/2022 FINDINGS/IMPRESSION: Lines: *Interval insertion of endotracheal tube which terminates in the proximal thoracic trachea, 6 cm from the cathi. *A loop recor manish superimposes the left chest. No confluent consolidation is noted. No pleural effusion is seen. No pneumothorax is identified. The heart is borderline enlarged. Aortic atherosclerosis is noted. The superior mediastinal contours are within normal limits. No acute osseous abnormality is identified. Report dictated by Oscar Santizo M.D. (residential tech) 10/13/2022 7:05 AM IAdiel MD have personally reviewed and interpreted this examination/study. > Interpreting Provider: Adiel Lynn MD on 10/13/2022 11:[address] NECK SOFT TISSUE W CONT Result Date: 10/13/2022 PROCEDURE: CT NECK SOFT TISSUE W CONT, DATE/TIME OF EXAM: 10/13/2022 1:29 AM, LOCATION [facility] INDICATION: R06.00: Dyspnea, unspecified type ADDITIONAL CLINICAL INFORMATION: Ordering Provider Reason For Exam: Peritonsillar abscess Technologist Note: None. Additional: Per chart review, patient was difficult to intubate and multiple attempts were required. CONTRAST: IOPAMIDOL 76 % IV SOLN:75 mL EXAMINATION: Computed tomography (CT) of the neck with contrast TECHNIQUE: CT of theneck was performed following the uneventful administration of 75 mL Isovue-370 contrast according to standard protocol. CT dose reduction technique was used, including Automated Exposure Control. COMP ARISON: CT angiogram of the neck performed 10/30 [...] kenneth bullosa.. Paraseptal emphysema and lung scarring. IMPRESSION: 1.Findings concerning for right peritonsillar abscess with associated diffuse pharyngitis and extensive laryngeal edema, extending to the level of the supraglottic larynx, resulting in airway compromise status post endotracheal intubation. Preliminary findings were discussed with the patient's care provider, Dr. Brannon by Dr. Cleveland via telephone at 0248 on 10/13/2022 with readback comprehension and verification. > Dictated by Dean Cleveland M.D. (residential tech) I, Sundar Devine MD have personally reviewed and interpreted this examination/study. > Interpreting Provider: Sundar Devine MD on 10/13/2022 10:[address] HEAD WO CONTRAST Result Date: 10/13/2022 PROCEDURE: CT HEAD WO CONTRAST, DATE/TIME OF EXAM: 10/13/2022 1:26 AM, LOCATION [facility] INDICATION: I63.9: Ischemic stroke ([facility] EXAMINATION: Computed tomography (CT) of the head without contrast ADDITIONAL CLINICAL INFORMATION: Ordering Provider Reason For Exam: Acute respiratory distress. R/o central causes Technologist Note: None. Additional: None. TECHNIQUE: CT of the head was performed without contrast according to standard protocol. CT dose reduction technique was used, including Automated Exposure Control. COMPARISON: CT of the head from 10/12/2022. FINDINGS: No acute intra- or extra-axial fluid collections are identified. There is mild cerebral volume loss with associated ex vacuo ventricular dilatation. The basilar cisterns are patent. No significant mass effect or midline shift is seen. There has been interval mild diffuse but subtle hypoattenuation and loss of orozco-white matter differentiation involving larger portions of the right frontal and right temp oral lobes as well as the right insula, and possibly posterior lateral temporal lobes which could represent acute evolving acute right MCA territory infarcts. MRI of the brain is recommended for further evaluation. Additional subtle hypoattenuation along the parasagittal right frontal lobe is also noted. Redemonstration of chronic infarcts with areas of encephalomalacia and gliosis in the right frontal and right parietal as well as the right occipital lobes compatible with chronic right MCA, SHEA, and BOARD MEMBER territory infarcts. Additional tiny lacunar infarcts in the bilateral cerebellar hemispheres are again noted. Periventricular white matter hypoattenuation is indicative of chronic small vess el ischemic disease. There is vascular calcification of the carotid siphons. No acute calvarial fracture is identified. Other than bilateral cataract extractions, the orbits appear normal. There is mild paranasal sinus disease. Opacification of the nasal passages and the nasopharynx. The patient is intubated. The mastoid air cells are grossly clear. Calcific densities along the left frontal scalpare again noted. No soft tissue abnormality is otherwise identified. IMPRESSION: 1.Suggestion of interval diffuse edema in the right MCA territory concerning for evolving right MCA territory ischemia. MRI of the brain is recommended for further evaluation.. 2.Additional chronic findings as outlined above. Results of this exam were communicated with closed loop confirmation to Dr. Mendenhall by Dr. Devine on 10/13/2022 at 9:54 AM with read back compression and verification. Report dictated by Romain Mckee MD, PhD (residential tech). ISundar MD have personally reviewed and interpreted this examination/study. > Interpreting Provider: Sundar Devine MD on 10/13/2022 10:21 AM XR CHEST 1VW PORTABLE Result Date: 10/13/2022 EXAMINATION: XR CHEST 1VW PORTABLE HISTORY: R53.1: Weakness COMPARISON: Chest radiograph dated 12/11/2021 FINDINGS/IMPRESSION: Lines: *A loop recorder superimposes the left chest. No confluent consolidation is noted. No pleural effusion is seen. No pneumothorax is identified. The heart is enlarged for this AP view. Aortic atherosclerosis is noted. The superior mediastinal contours are within normallimits. No acute osseous abnormality is identified. No free air is seen under the diaphragm. > Interpreting Provider: CEDRIC FLORES MD on 10/13/2022 6:[address] ANGIO BRAIN NECK STROKE Result Date: 10/12/2022 EXAM: CT ANGIO BRAIN NECK STROKE, DATE/TIME OF EXAM: 10/12/2022 7:42 PM, LOCATION: [facility] HISTORY: Code Stroke EXAMINATION: CT angiogram images [...] right middle cerebral artery (MCA) via the [place] of [place]/patent anterior communicating artery. Diminished opacification of the right MCA M1 segment and distal branches with notable markedly diminutive opacification versus nonopacification of the MCA M3 segment and beyond. No occlusion or hemodynamical ly significant stenosis elsewhere of the major intracranial arteries. Patent intracranial left ICA,left MCA, bilateral ACAs, vertebral artery V4 segments, [...] ARTERIES: No occlusion or hemodynamically significant stenosis. Noevidence of dissection. OTHER: Partially imaged lung apices [...] the right SHEA and MCA via the [place] of [place]. Diminished opacification of the right [...] communication. Report dictated by Gilbert Morrow MD (residential tech). I, Zelda Willams MD, PhD have personally reviewed and interpreted this examination/study. > Interpreting Provider: Zelda Willams MD, PhD on 10/12/2022 8:[address] BRAIN - Stroke Result Date: 10/12/2022 EXAM: CT BRAIN STROKE, DATE/TIME OF EXAM: 10/12/2022 7:32 PM, LOCATION: [facility] HISTORY: Code Stroke EXAMINATION: CT scan of [...] PARENCHYMA: No acute parenchymal hemorrhage. Apparent hypodensity ofthe right anterior temporal lobe and insular region, which is nonspecific and may be attributable to motion artifact or possibly representing areas of evolving acute infarct. No mass effect, midline shift, or brain herniation. Re-demonstrated areas of encephalomalacia involving the right frontal and right parietal lobes, consistent with chronic infarcts involving the right middle cerebral artery ( MCA) vascular territory and right anterior cerebral artery (SHEA)/MCA watershed territory. Re-demonstrated area of encephalomalacia involving the right occipital lobe, consistent with a chronic infarct involving the right posterior cerebral artery (BOARD MEMBER) vascular territory. Multiple small chronic lacunes of [...] tissues. Mildly expansile soft tissue lesion of [id number] of the sella turcica measuring 2.1 x 1.6 cm (09/03), which is associated with thinning of thedorsum sellae and is incompletely assessed on this [...] infarct. Recommend follow-up brain MRI without contrast forfurther evaluation. 3.Multiple chronic infarcts of the right cerebral hemisphere and multiple smallchronic lacunes of the left greater than right cerebellar hemispheres as described. 4.Mildly expansile soft tissue lesion of the mid-to-left aspect of the sella turcica measuring 2.1 x 1.6 cm, which is associated with thinning of the dorsum sellae and is incompletely assessed on this examination. Recommend follow-up sella MRI without and with contrast. Results of this exam were verbally discussedby Dr. Zelda Willams with Dr. Brannon on 10/12/2022 at 7:44 PM for a Critical Stroke Protocol with readback confirmation and verification. The images were reviewed by attending physician Dr. Zelda Willamsprior to this communication. > Interpreting Provider: Zelda Willams MD, PhD on 10/12/2022 8:20 PM Ischemic stroke (CMS/HCC) (POA: Yes) Carotid occlusion, right (POA: Yes) Carotid stenosis, left (POA: Yes) Weakness (POA: Unknown) Coronary artery disease (POA: No) JAMES (obstructive sleep apnea) (POA: Yes) COPD (chronic obstructive pulmonary disease) (CMS/HCC) (POA: Unknown) Stage 3 chronic kidney disease (CMS/HCC) (POA: Unknown) Peritonsillar abscess (POA: Yes) Dyspnea (POA: Yes) Respiratory acidosis (POA: Yes) Hx of completed stroke (POA: Yes) DM2 (diabetes mellitus, type 2) (CMS/[facility]) (POA: Yes) Primary hypertension (POA: Yes) Smoker (POA: Yes) Assessment Esperanza Chaparro is a 67 year old male presenting 10/12 from [place] for left sided hemiparesis and aphasia. CTH with acute on chronic infarcts. CTA with chronic right ICA complete occlusion identified on Cerebral Angiogram in 01/2022. S/p TNK but MT not pursued due to low ASPECT score. MRI with right frontal, parietal, and temporal lobes consistent with known infarct in right MCA and SHEA territories with no hemorrhagic transformation. Mechanism is large artery. Flow failure possible given distribution and appearance of lesions on MRI, and also in the setting of infection which was being treated at [place].Proximal or distal stump syndrome can also be considered but less likely given both MCA and SHEA involvement. Stroke Type: Ischemic Stroke Mechanism: Large Artery: Flow failure vs. Carotid stump styndrome Plan R SHEA/MCA Territory Infarctions s/p tnk Chronic R ICA occlusion - Stroke workup complete - NSYG signed off for decompressive hemicraniectomy watch. - On aspirin 81 mg, Atorvastain 80 mg for secondary prevention - SBP goal 120-180 - Will add plavix when there is less potential for surgical intervention. Will likely need PEG tubeplacement given continued failure during swallow eval. - If patient has future ischemic vascular injury, can consider switching to anticoagulation with Single antiplatelet therapy. - Disposition: acute rehab recommendation from PT/OT. Blood Pressure Goals: SBP: 130-180 per NCC, 160 difficult to manage given BRYCE with oral antihypertensives. Core Measures tPA administration: yes Anti-thrombotic: Aspirin 81 mg Statin: Rosuvastatin 40 mg DVT prophylaxis: Subcutaneous heparin Swallow Evaluation: pending PT/OT Evaluation: pending Smoking cessation; will cancer genetic counselor: pending Individual Modifiable Risk Factors Hypertension: yes Hyperlipidemia: yes Diabetes: yes Atrial Fibrillation: no Tobacco: no Diabetes plan of care based on A1c: Patient's A1c is equal to or greater than 6.5%. For patients with diabetes (A1c >6.5%), SGLT-2 inhibitors or GLP-1 receptor agonists have been shown to reduce major adverse cardiovascular events. These medications require close follow up with PCP or yarn spinner and lab monitoring. Due to this reason, we have deferred treatment until outpatient follow up. Facility Manager Histology should be consulted to provide patient education. Patient will follow with PCP/Reconcilement Clerk after discharge for diabetes medications and continued disease management. 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 Peritonsillar Abscess - Unasyn 3 g q6h per ENT - Extubated 10/15 - Day 09/13 unasyn today. Bradycardia First Degree AV Block - Holdoing home coreg - EKG on 10/12/2022 with First degree av block T2DM - A1C 7.7% - Lantus 15 U q24hr - BG goal 140-180 COPD -Hx smoking - Duonebs q4hr - Budesonide 500 mcg nebs qd JAMES - consider Cpap HTN - on Coreg 6.25 mg BID and Lisinopril 10 mg QD at home - Continue amlodipine 10 mg daily and Losartan 25 mg daily Hx CAD s/p stent: - Resumed home ASA - Resumed home Rosuvastatin 40 mg QD HLD - Home Rosuvastatin 40 mg Case findings discussed with Dr. Khan, Stroke Attending. Fito Hawkins MD Neurology Resident * Marii Alberto MD - 10/17/2022 9:19 AM CDT Neurology Critical Care Progress Note Esperanza Chaparro Age: [age] year old Date of : 1955 Date of Admission: 10/12/2022 Hospital Day: 5 Subjective Patient is a 67 year old male who is admitted to ICU for post-tNK monitoring. Hospital Course 67yo M with a history of ischemic stroke (2017 and 2021), prolactinoma, HTN, HLD, DM2, CAD and NSTEMI s/p stent, colon cancer, JAMES, smoking and COPD, who presented as a transfer from [facility] on 10/12 with concern for acute ischemic stroke. Patient was at [facility] on 10/12 with recently diagnosed peritonsillar abscess (treated with 5 days oral antibiotics, agent unspecified). Patient had dysphagia and dysarthria on initial evaluation. He was being prepared for discharge from the ED (lack of available beds), when the ED physician noticed left-sided weakness. Patient's mother and sister were later contacted and note that patient has had left weakness in his hand and leg (dropping things and falls whileusing walker) for the last several weeks but note that he was able to walk and the current degree of weakness is new. CTH at OSH ruled out bleed. Patient was transferred to ED for acute ischemic stroke workup and management. In [facility] ED, NIH score was 21 and patient had cortical signs (neglect, visual field cut, gaze deviation) prompting IVR activation. CTH demonstrated multiple hypodensities of the right hemisphere possibly representing areas of evolving acute infarct as well as multiple chronic infarcts. CTA demonstrated R ICA occlusion, which is chronic, seen in December 2021. IVR was cancelled d/t chronic nature of occlusion and low ASPECT score. Patient was given TNK after call to family for patient's baseline confirmed new focal deficits. Patient was admitted to [facility] for post-TNK monitoring. 10/13: Overnight, patient developed de-saturation to low 80s, hyperventilating and appearing obtundedon exam. ABG revealed mixed respiratory and non-gap metabolic acidosis. Patient required intubationin OR after failed attempts at bedside d/t airway edema. Afterwards, CT neck demonstrated bleeding with CTH negative for intracranial bleed. 10/14: No acute events overnight. Repeat CTH negative for bleed so heparin sc was started. ENT placedOGT and TF started. 10/15: No acute events, patient tolerated SBT/SAT overnight with Psupport 5, PEEP 5, FiO2 30% with RSBI <70. Pt received another dose of decardron 10mg. After reassuring neurological exam and demonstrating presence of cuff leak, patient was prepared for extubation at 8AM this morning. ACC, ENT, and neurocritical care teams were present at patient bedside. Lidocaine was administered in the oropharynx, an airway exchange cook catheter was placed successfully, and the patient was extubated to nasal cannula. The patient was carefully monitored afterwards with cook catheter removed after 15 minutes. Interval History: CTH repeat stable. Overnight kristal without symptoms. Atropine at bedside prn. BG below goal, decrease Lantus. Cr. down trending. Start melatonin and sleep holiday. Liberalize neurochecks. Objective Patient Vitals for the past 24 hrs: BP Temp Temp src Pulse Resp SpO2 Weight 10/17/22 0600 177/75 -- -- 48 20 94 % -- 10/17/22 0516 -- -- -- 56 14 94 % -- 10/17/22 0500 168/83 -- -- 50 18 93 % -- 10/17/22 0400 177/76 -- -- 57 20 93 % 124.7 kg (275 lb) 10/17/22 0315 145/88 -- -- 63 12 94 % -- 10/17/22 0300 (!) 184/79 -- -- 68 9 94 % -- 10/17/22 0235 (!) 184/95 -- -- 56 19 96 % -- 10/17/22 0230 (!) 181/86 -- -- 53 12 96 % -- 10/17/22 0200 (!) 180/75 98.6 ??F (37 ??C) Oral 52 18 98 % -- 10/17/22 0105 176/78 -- -- 57 17 93 % -- 10/17/22 0000 166/68 98 ??F (36.7 ??C) -- 56 18 93 % -- 10/16/22 2304 -- -- -- 59 18 93 % -- 10/16/22 2300 171/80 -- -- 55 18 92 % -- 10/16/22 2200 166/83 98.5 ??F (36.9 ??C) Axillary 49 17 96 % -- 10/16/22 2100 161/70 -- -- 51 19 99 % -- 10/16/22 2000 145/72 98.8 ??F (37.1 ??C) Axillary 49 11 98 % -- 10/16/22 1900 160/66 -- -- 50 17 94 % -- 10/16/22 1800 152/69 -- -- 49 17 93 % -- 10/16/22 1700 162/68 -- -- 56 19 94 % -- 10/16/22 1657 -- -- -- 58 18 94 % -- 10/16/22 1600 172/79 99 ??F (37.2 ??C) Axillary 57 14 95 % -- 10/16/22 1500 149/68 -- -- 50 11 94 % -- 10/16/22 1400 166/78 -- -- 53 18 93 % -- 10/16/22 1300 158/65 -- -- 59 16 96 % -- 10/16/22 1200 157/67 -- -- 59 17 (!) 89 % -- 10/16/22 1100 175/80 -- -- 62 16 92 % -- 10/16/22 1000 166/76 -- -- 51 19 93 % -- Exam: Pupils: Equal and briskly reactive; left unable to assess with pupillometer (dyscoria, likely 2/2 surgery). Opens eyes spontaneously Speech: dysarthric, fluent. Comprehension intact. Follows commands on right. No movement on the L, noxious deferred Sensation: Unable to recognize sensation on L, likely neglect BRITT cerebellar, gait Assessment Esperanza Chaparro is a 67 year old male who presented 10/12 as a transfer from OSH to [facility] ED with left-sided weakness, cortical signs, and NIHSS 21 with chronic R ICA occlusion and CTH evidence of multiple hypodensities in the right anterior temporal lobe and insula with repeat CTH after 6 hours demonstrating interval diffuse edema in the right MCA territory concerning for evolving acute infarct. Patient received TNK and was admitted to [facility] for post-tNK monitoring. MR brain 10/13 subsequently demonstrated late acute/ early subacute infarct in the R frontal, parietal, and temporal lobes consistent with known infarct in the R MCA and SHEA territories, no evidence of hemorrhagic transformation. Mechanism of acute stroke is likely large vessel, consider flow failure in the setting of relative hypotension with limited supply through collateral circulation in this patient with long segment occlusion of the right ICA from the carotid bulb to the terminus with reconstitution of flow to the right SHEA and MCA via the miami of Arvizu. Also consider cardioembolic given location of infarct in multiple vascular territories. Plan Neurological/psych #Acute infarct in the territory of the R MCA, SHEA, and small cerebellar infarct s/p TNK #Chronic R ICA occlusion on CTA - Neuro checks q4h - Stat CT head for any change in neurological examination - Head of bed > 30?? - Avoid hyperthermia, hypoglycemia, hyponatremia - Continue ASA and lipitor. Will add plavix following [facility] watch. - NSGY following for decompressive hemicraniectomy watch - Stroke workup complete - SBP goal 120-180 Analgesia/sedation: none #Encephalopathy, resolved - Consider multifactorial 2/2 hypoxia with mixed acidosis and relative hypotension (in this patientwith chronic R ICA occlusion). - cEEG: slowing (encephalopathy) with moderate suppression of R hemisphere. #Hx of ischemic stroke - Discharged on ASA and ticagrelol December 2021, currently only on ASA. SBP goal 140-160mmHg on discharge. - Continue ASA 81mg QD - Resume home rosuvastatin 40mg QHS #Prolactinoma - per patient's mother and sister, pt not taking prescribed cabergoline Cardiovascular #HTN - Home meds: coreg 6.25mg BID, lisinopril 10mg QD - SBP goal 120-180 - Hemodynamic monitoring - Continue amlodipine 10mg QD - Start Losartan 25 mg QD #Bradycardia #First degree AV block - Sinus kristal on EKG 12/2021 - EKG 10/12/22 with first degree AV block - Holding home coreg. #Troponinemia, resovled - Likely demand post stroke - peak of 72 on 10/13 - EKst degree AV block, no VENKATA #CAD s/p stent (date unknown) #Hx of NSTEMI - Continue home ASA - Continue home rosuvastatin 40mg QD - Holding home nitroglycerin 0.3mg Respiratory #Intubated for acute hypoxic hypercarbic respiratory failure, extubated 10/15 #Airway obstruction 2/2 laryngeal abscess and airway edema s/p intubation c/b bleeding, succesfullyextubated 10/15 - Aspiration precautions - Elevate head of bed - Maintain oxygen saturation > 88% - Monitor for respiratory distress #COPD - Home meds: Fluticasone/Salmeterol 100/50 1 inh BID PRN, Tiotropium 2.5 mcg/Actuat 60D 2 inh once a day, and Albuterol 90 mcg 2 puffs QID PRN - Continue budesonide 500mcg nebs QD - Continue duo-nebs q4h #JAMES - Consider CPAP Renal/Electrolytes Intake/Output Summary (Last 24 hours) at 10/17/2022 0920 Last data filed at 10/17/2022 0652 Gross per 24 hour Intake 1452.35 ml Output 2000 ml Net -547.65 ml #BRYCE on CKD, improving - CKD likely 2/2 DM and HTN > Condom cath with bladder scanner +sc q6h > Monitor intake and output > Replete electrolytes as needed #Mixed respiratory and non-anion gap metabolic acidosis on admission, resolved - ABG 10/13: pH 7.31 (7.12), pCO2 37 (62), pO2 134 (59), FiO2 50 (100). - Persistent non-gap metabolic acidosis attributed to RTA 2/2 CKD. > F/u daily serum bicarb and renal function #Hyperkalemia, resolved - No changes on EKG - f/u daily BMP Infectious Disease #Leukocytosis, resolved #Peritonsillar Abscess - F/u daily CBC - Monitor for fevers - ENT following, attempted bedside drain, no fluid drained. Unasyn (day 08/14), okay to transition tooral augmentin. 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 Endocrine HbA1C 7.7 #DM2 #Hyperglycemia - BG below range - Decrease lantus to 10 - Home regimen: empagliflozin 25mg QD - Continue accuchecks + SSI q4h - BG goal 140-180 #HLD - Start home rosuvastatin 40mg. Musculoskeletal No active issues. DVT prophylaxis: SCDs LDAs: PIVs, NGT, condom cath. Disposition: NCC, Floor transfer per stroke team SW: pending PT/OT: Rehab Code Status: Full Patient's case was discussed & staffed w/ NCC Attending Dr. Luis Alberto Alberto MD Neurology Resident Associated attestation - Adrianna Sahu MD - 10/17/2022 3:54 PM CDT I have seen and examined the patient with the resident and I agree with the findings and plan of care as documented by the resident except for below: Plan of care for today: Adjust HTN meds Repeat CTH stable Asymptomatic bradycardia, CTM BRYCE improving Transfer to floor Date of Service: 10/17/2022 Adrianna Sahu MD Neurologic Critical Care Attending * Palma Moran, MALU - 10/17/2022 8:07 AM CDT [facility] Physical Medicine and Rehabilitation Swallow Treatment Patient: Esperanza Chaparro Med Record Number: [id number] Date of : 1955 Age: [age] year old PPE: PPE worn by staff: gloves Impressions: Pt presents with oral dysphagia characterized by anterior loss of bolus, suspected pharyngeal dysphagia given medical hx and presence of clinical indicators of aspiration. Oral phase appears functional with ice chips, noted right anterior loss with 100% of thin liquid trials, decreasedwith smaller bolus size. Delayed cough and throat clear, wet vocal quality noted with trials of thin liquid. Requests to expectorate phlegm following 100% of trials. Recommend to continue NPO. Recommendations: Diet Liquids Recommendation: NPO (Ice chips PRN with aggressive oral care) Diet Solids Recommendation: NPO Recommended Form of Meds: Feeding Tube Recommended Tests/Consults: Recommendations: Dysphagia Treatment Discharge Recommendations: Speech therapy is recommended to improve swallow function. SUBJECTIVE: Patient Goals: None stated Pain Assessment: Pain Location #1 Pain Scale/Observation: Numeric (0-10) Pain Rating Score #1: 8 Pain Location : Head (Headache) OBJECTIVE: Level of Consciousness: alert Orientation Level: oriented x 4 Positioning: Upright in bed Swallow Trials: Ice chips: Presentation: Spoon-Assisted Oral: No signs/symptoms of aspiration;Spillage Right Pharyngeal: No signs/symptoms of aspiration Thin Liquid: Presentation: Straw-Assisted Oral: Spillage Right Pharyngeal: Throat Clearing - Delayed;Wet Vocal Quality;Cough - Delayed Assessment: Primary Diagnostic Impression - Oral: Mild Primary Diagnostic Impression - Pharyngeal: Moderate (Suspected) Treatment/Education/Interventions: While performing CHEMISTRY PHYSICS TEACHER, Patient was instructed in: results of swallow evaluation, clinical signs of aspiration , and recommendations for NPO status given patient's elevated aspiration risk. Patient demonstrated Fair understanding of instructions given. Nurse contacted regarding results of treatment session. INFORMED CONSENT TO TREATMENT: Plan of care including recommended therapy, goals and frequency, discussed with patient who understands and agrees to proceed. Short Term Goals Patient will participate in an instrumental swallow assessment as appropriate., Patient will demonstrate an improvement in oropharyngeal swallow function to warrant diet upgrade. Prison Goal (s): Patient to be independent/baseline with functional mobility and self care and be able to safely discharge to prior level of care. Plan: Dysphagia treatment Palma Powers M.A. [facility]-CHEMISTRY PHYSICS TEACHER Speech Language Pathologist * Gregorio Khan MD - 10/17/2022 8:06 AM CDT Images from the original note were not included. I have seen and examined the patient with the resident and I agree with the findings and plan of care as documented by the resident. Date of Service: 10/17/2022 Gregorio Khan MD Esperanza Chaparro is a 67 year old M??with hx of right ICA occlusion and R MCA infarction and peritonsillar abscess presented on 10/12 to the [place] ED for somnolence, left-sided hemiplegia and right-sided gaze deviation. Upon arrival to [facility] S/p TNK and intubation for respiratory distress. Angiogram 01/2022 showed R ICA occlusion.?? Admitted to ICU. MRI right MCA and SHEA cortical infarcts of the same acuteage. Based on distribution and appearance of the acute lesions etiology is possibly flow failure given limited baseline supply through the collateral circulation (AComm and ECA) which could have happened in the context of the infection. Alternatively may consider distal stump syndrome given chronic ICA occlusion. Extubated on 10/14, tolerating well. TTE non diagnostic. Currently on ASA; will start plavix when there's less potential for neurosurgical intervention. Maintain perfusion with SBP [id number]; lobsterman goal- normotensive. Continue Lipitor. ENT on board for the abscess - s/p abscess aspiration, on zosyn. Problem List Ischemic stroke (CMS/HCC) (POA: Yes) Carotid occlusion, right (POA: Yes) Carotid stenosis, left (POA: Yes) Weakness (POA: Unknown) Coronary artery disease (POA: No) JAMES (obstructive sleep apnea) (POA: Yes) COPD (chronic obstructive pulmonary disease) (CMS/HCC) (POA: Unknown) Stage 3 chronic kidney disease (CMS/HCC) (POA: Unknown) Peritonsillar abscess (POA: Yes) Dyspnea (POA: Yes) Respiratory acidosis (POA: Yes) Hx of completed stroke (POA: Yes) DM2 (diabetes mellitus, type 2) (CMS/HCC) (POA: Yes) Primary hypertension (POA: Yes) Smoker (POA: Yes) See Resident note for the remaining problem specific plan. 5 MEDICATIONS FOR CURRENT ENCOUNTER: ?? SCHEDULED MEDICATIONS: ?? 0.9% NaCl injection 3 mL, Intracatheter, q8h ?? 0.9% NaCl injection 3 mL, Intracatheter, q8h ?? albuterol-ipratropium (Duo-Neb) nebulizer solution 3 mL, Inhalation, q6h ?? amLODIPine (Norvasc) tablet 10 mg, Enteral Tube, QDAY ?? ampicillin-sulbactam (Unasyn) 3 g in 0.9% NaCl IV 100 mL IVPB, Intravenous, q6h ?? artificial tears ophthalmic ointment, Each Eye, q8h ?? aspirin chew tablet 81 mg, Enteral Tube, QDAY ?? budesonide (Pulmicort) nebulizer suspension 500 mcg, Inhalation, QDAY ?? heparin injection 5,000 Units, Subcutaneous, q8h ?? insulin glargine (Lantus) pen 10 Units, Subcutaneous, q24h ?? insulin lispro (HumaLOG;ADMelog) 100 UNIT/ML pen 0-24 Units, Subcutaneous, q4h ?? nicotine (Nicoderm CQ) patch 21 mg, Transdermal, QDAY ?? perflutren lipid microsphere (Definity) injection 0.5 mL, Intravenous, intra- Procedure multiple ?? potassium - sodium phosphates (Phos-Nak) powder 1 packet, Enteral Tube, TID WC ?? rosuvastatin (Crestor) tablet 40 mg, Enteral Tube, QDAY ?? CONTINUOUS MEDICATIONS: ?? PRN MEDICATIONS: ?? Or ?? Or ?? 0.9% NaCl injection 1-10 mL, Intracatheter, PRN ?? 0.9% NaCl injection 3 mL, Intracatheter, PRN ?? acetaminophen (Tylenol) suppository 650 mg, Rectal, q4h PRN ?? acetaminophen (Tylenol) tablet 650 mg, Enteral Tube, q6h PRN ?? albuterol (Proventil;Ventolin) (5 MG/ML) 0.5% nebulizer solution 2.5 mg, Inhalation, q6h PRN ?? atropine injection 1 mg, Intravenous, Once PRN ?? dextrose 10 % IV bolus, Intravenous, PRN ?? dextrose 10 % IV bolus, Intravenous, PRN ?? glucagon (Glucagen) injection 1 mg, Subcutaneous, PRN ?? glucose (Diabetic Use) (Dex4 Glucose) oral liquid, Oral, PRN ?? glucose (Diabetic Use) oral gel, Oral, PRN ?? glucose chew tablet 4 tablet, Oral, PRN ?? polyethylene glycol 3350 (Miralax) packet 17 g, Enteral Tube, QDAY PRN Patient Vitals for the past 24 hrs: Temp Pulse Resp BP 10/17/22 0600 -- 48 20 177/75 10/17/22 0516 -- 56 14 -- 10/17/22 0500 -- 50 18 168/83 10/17/22 0400 -- 57 20 177/76 10/17/22 0315 -- 63 12 145/88 10/17/22 0300 -- 68 9 (!) 184/79 10/17/22 0235 -- 56 19 (!) 184/95 10/17/22 0230 -- 53 12 (!) 181/86 10/17/22 0200 98.6 ??F (37 ??C) 52 18 (!) 180/75 10/17/22 0105 -- 57 17 176/78 10/17/22 0000 98 ??F (36.7 ??C) 56 18 166/68 10/16/22 2304 -- 59 18 -- 10/16/22 2300 -- 55 18 171/80 10/16/22 2200 98.5 ??F (36.9 ??C) 49 17 166/83 10/16/22 2100 -- 51 19 161/70 10/16/22 2000 98.8 ??F (37.1 ??C) 49 11 145/72 10/16/22 1900 -- 50 17 160/66 10/16/22 1800 -- 49 17 152/69 10/16/22 1700 -- 56 19 162/68 10/16/22 1657 -- 58 18 -- 10/16/22 1600 99 ??F (37.2 ??C) 57 14 172/79 10/16/22 1500 -- 50 11 149/68 10/16/22 1400 -- 53 18 166/78 10/16/22 1300 -- 59 16 158/65 10/16/22 1200 -- 59 17 157/67 10/16/22 1100 -- 62 16 175/80 10/16/22 1000 -- 51 19 166/76 10/16/22 0900 -- 52 19 160/82 Recent Labs Component Name 10/17/22 0044 10/16/22 0029 10/14/22 2357 NA 145 143 138 CL 114* 116* 112* CO2 23 20* 18* BUN 55* 60* 63* CREATININE 1.43* 1.72* 2.16* CALCIUM 9.1 8.7 8.8 PHOS 2.5* 3.0 3.7 Recent Labs Component Name 10/17/22 0044 10/16/22 0029 10/14/22 2357 WBC 9.4 10.4 10.5 RBC 4.22* 3.78* 3.72* HGB 12.3 11.0* 10.9* HCT 38.2 33.9* 33.2* Recent Labs Component Name 10/14/22 0118 10/13/22 0228 12/12/21 0205 CHOL - 148 188 TRIG 200* 117 216* HDL - 40* 33* LDLCALC - 85 112* Recent Labs Component Name 10/12/22 2231 12/11/21 1227 HGBA1C 7.7* 7.1* EAG 174 157 Recent Labs Component Name 10/17/22 0044 10/16/22 0029 10/14/22 2357 PLTCOUNT 170 179 174 * Deonte Montero RN - 10/16/2022 8:26 PM CDT Problem: Oxygenation/Respiratory Function Goal: Respiratory rate/effort will be within specified limits Outcome: Not Progressing Problem: Nutrition Goal: Nutritional status is improving Outcome: Not Progressing Problem: Tobacco Use Goal: Inpatient tobacco-use cessation counseling participation Outcome: Progressing Problem: Pain/Discomfort Goal: Patient exhibits reduced pain/discomfort as evidenced by pain scores Outcome: Progressing Goal: Patient uses pharmacological and non-pharmacological pain management strategies. Outcome: Progressing Problem: Neurological Deficit Goal: Neurological status is stable or improving Outcome: Progressing Problem: Hemodynamic Status/Cardiac Output Goal: Patient has stable vital signs and fluid balance Outcome: Progressing Problem: Mobility Goal: Patient's mobility/activity will be maintained as optimum level for age, diagnosis and physical limitations Outcome: Progressing Goal: Continuum of care needs are further met through referral to outpatient services when appropriate. Outcome: Progressing Goal: Patient reports the ability to perform Activities of Daily Living. Outcome: Progressing Problem: Communication Impairment/Dysarthria Goal: Ability to express needs and understand communication Outcome: Progressing Problem: Aspiration Precautions Goal: Patient's risk of aspiration is minimized Outcome: Progressing Problem: Glycemic Control Goal: Clinical indication of glycemia balance is achieved Outcome: Progressing Problem: Knowledge Deficit,Education,Discharge Plan Goal: The patient/family will understand cerebrovascular disease and its symptoms, treatment and management Outcome: Progressing Problem: Skin Integrity Goal: Skin integrity is maintained or improved Outcome: Progressing Problem: Fall Risk Goal: Fall risk and fall related injury risk are minimized (interventions related to the fall risk can be found in the flowsheet documentation) Outcome: Progressing Problem: Nutrient: Inadequate protein-energy intake Goal: Total intake will meet estimated nutrient needs Outcome: Progressing Problem: Transfers Goal: STG - Patient will transfer sit to and from stand Outcome: Progressing Problem: Balance Goal: LTG - Patient will demonstrate Intervention to enhance balance for safe completion of daily activities Outcome: Progressing * Luanne Barker RN - 10/16/2022 6:27 PM CDT Problem: Pain/Discomfort Goal: Patient exhibits reduced pain/discomfort as evidenced by pain scores Outcome: Progressing Goal: Patient uses pharmacological and non-pharmacological pain management strategies. Outcome: Progressing Goal: Patient verbalizes acceptable level of pain relief and ability to engage in desired activity. Outcome: Progressing Problem: Neurological Deficit Goal: Neurological status is stable or improving Outcome: Progressing Problem: Hemodynamic Status/Cardiac Output Goal: Patient has stable vital signs and fluid balance Outcome: Progressing Problem: Oxygenation/Respiratory Function Goal: Respiratory rate/effort will be within specified limits Outcome: Progressing Problem: Mobility Goal: Patient's mobility/activity will be maintained as optimum level for age, diagnosis and physical limitations Outcome: Progressing Goal: Continuum of care needs are further met through referral to outpatient services when appropriate. Outcome: Progressing Goal: Patient reports the ability to perform Activities of Daily Living. Outcome: Progressing Problem: Communication Impairment/Dysarthria Goal: Ability to express needs and understand communication Outcome: Progressing Problem: Nutrition Goal: Nutritional status is improving Outcome: Progressing Problem: Aspiration Precautions Goal: Patient's risk of aspiration is minimized Outcome: Progressing Problem: Glycemic Control Goal: Clinical indication of glycemia balance is achieved Outcome: Progressing Problem: Knowledge Deficit,Education,Discharge Plan Goal: The patient/family will understand cerebrovascular disease and its symptoms, treatment and management Outcome: Progressing Problem: Skin Integrity Goal: Skin integrity is maintained or improved Outcome: Progressing Problem: Fall Risk Goal: Fall risk and fall related injury risk are minimized (interventions related to the fall risk can be found in the flowsheet documentation) Outcome: Progressing Problem: Nutrient: Inadequate protein-energy intake Goal: Total intake will meet estimated nutrient needs Outcome: Progressing * Paz Brannon MD - 10/16/2022 5:11 PM CDT 5:12 PM Received a call from the patient's nurse regarding low HR (upper 30s) which lasted a few seconds and reportedly, the patient was asymptomatic. 12-lead EKG and Atropine 1 mg PRN was ordered. * Analilia Das MSW - 10/16/2022 3:47 PM CDT SW newly assigned and following for placement and disposition. SW acknowledge verbal consult for rehab referrals. SW sent referrals. Continued Care and Services - Admitted Since 10/12/2022 Destination Service Provider Request Status Selected Services Address Phone Fax Patient [facility] - ACUTE REHAB Pending - Request Sent N/A [phone] [phone] -- [facility] [place]. Acute Re[facility] - [facility] [phone] [facility] [phone] -- NOHEMI Santacruz Care Coordination Energy Auditor * Fredis Samuels RN - 10/16/2022 3:04 PM CDT Care Coordination Progress Note Anticipated level of care at discharge: Home, Acute Rehab Facility Discharge Plan: Pt remains in the ICU. PT/OT on hold. Will likely discharge to Acute Rehab when medically ready. Refer to SW notes for further details. READMISSION RISK SCORE is 18 at 3:05 PM 10/16/2022. Anticipated Discharge Date: 10/20/22 Patient/Family provided with list of resources? Unknown Preferred Provider / High Quality Network List given?: Unknown Reason for provider choice: Unknown Family Support (Name and Phone): Extended Emergency Contact Information Primary Emergency Contact: DenizClarita Relation: Mother Secondary Emergency Contact: Nichelle Varghese Relation: Sister Patient is alert & orientated or has capacity for decision making: If No , Legal or Designated Decision Maker: Transportation at Discharge: (to be determined) Equipment at Home: Equipment at Home: Walker-4 Wheeled with Seat List DME patient requires but does not have: DME Provider: Medication affordability concerns: Follow Up Appointment: Transportation to MD: Auth Number (if required): [place]: DME: Medications: Transportation: Name: Fredis Samuels RN Phone: [phone] * Arpita Purdy APRN-MARGARITO - 10/16/2022 12:45 PM CDT NEUROSURGERY PROGRESS NOTE At the current time, Esperanza Chaparro does not require any further inpatient neurosurgical care. Patient's exam and imaging have remained stable. Please call NSGY back with stat CT head noncontrast if any decline in neurologic exam is noted. There is no scheduled outpt follow up indicated, should follow up with Neurology Stroke after discharge. Arpita Purdy APRN-MARGARITO 10/16/2022 12:45 PM * Monae Nelson - 10/16/2022 12:38 PM CDT Neurology Critical Care Progress Note Esperanza Chaparro Age: [age] year old Date of : 1955 Date of Admission: 10/12/2022 Hospital Day: 4 Subjective Patient is a 67 year old male who is admitted to ICU for post-tNK monitoring. Hospital Course 67yo M with a history of ischemic stroke (2017 and 2021), prolactinoma, HTN, HLD, DM2, CAD and NSTEMI s/p stent, colon cancer, JAMES, smoking and COPD, who presented as a transfer from [facility] on 10/12 with concern for acute ischemic stroke. Patient was at [facility] on 10/12 with recently diagnosed peritonsillar abscess (treated with 5 days oral antibiotics, agent unspecified). Patient had dysphagia and dysarthria on initial evaluation. He was being prepared for discharge from the ED (lack of available beds), when the ED physician noticed left-sided weakness. Patient's mother and sister were later contacted and note that patient has had left weakness in his hand and leg (dropping things and falls whileusing walker) for the last several weeks but note that he was able to walk and the current degree of weakness is new. CTH at OSH ruled out bleed. Patient was transferred to ED for acute ischemic stroke workup and management. In [facility] ED, NIH score was 21 and patient had cortical signs (neglect, visual field cut, gaze deviation) prompting IVR activation. CTH demonstrated multiple hypodensities of the right hemisphere possibly representing areas of evolving acute infarct as well as multiple chronic infarcts. CTA demonstrated R ICA occlusion, which is chronic, seen in December 2021. IVR was cancelled d/t chronic nature of occlusion and low ASPECT score. Patient was given TNK after call to family for patient's baseline confirmed new focal deficits. Patient was admitted to [facility] for post-TNK monitoring. 10/13: Overnight, patient developed de-saturation to low 80s, hyperventilating and appearing obtundedon exam. ABG revealed mixed respiratory and non-gap metabolic acidosis. Patient required intubationin OR after failed attempts at bedside d/t airway edema. Afterwards, CT neck demonstrated bleeding with CTH negative for intracranial bleed. 10/14: No acute events overnight. Repeat CTH negative for bleed so heparin sc was started. ENT placedOGT and TF started. 10/15: No acute events, patient tolerated SBT/SAT overnight with Psupport 5, PEEP 5, FiO2 30% with RSBI <70. Pt received another dose of decardron 10mg. After reassuring neurological exam and demonstrating presence of cuff leak, patient was prepared for extubation at 8AM this morning. ACC, ENT, and neurocritical care teams were present at patient bedside. Lidocaine was administered in the oropharynx, an airway exchange cook catheter was placed successfully, and the patient was extubated to nasal cannula. The patient was carefully monitored afterwards with cook catheter removed after 15 minutes. Interval History: Patient complaining of headache this morning, not alleviated with tylenol. Repeat CTH with increasein edema and midline shift. Objective Patient Vitals for the past 24 hrs: BP Temp Temp src Pulse Resp SpO2 Weight 10/16/22 1200 157/67 -- -- 59 17 (!) 89 % -- 10/16/22 1100 175/80 -- -- 62 16 92 % -- 10/16/22 1000 166/76 -- -- 51 19 93 % -- 10/16/22 0900 160/82 -- -- 52 19 93 % -- 10/16/22 0800 170/82 99.2 ??F (37.3 ??C) Axillary 66 21 90 % -- 10/16/22 0700 161/70 -- -- 57 18 93 % -- 10/16/22 0506 -- -- -- 62 20 91 % -- 10/16/22 0500 174/78 -- -- 67 29 92 % -- 10/16/22 0405 165/82 98.7 ??F (37.1 ??C) Oral 60 13 92 % -- 10/16/22 0400 -- -- -- -- -- -- 123 kg (271 lb 3.2 oz) 10/16/22 0300 167/75 -- -- 61 16 94 % -- 10/16/22 0200 171/80 98.4 ??F (36.9 ??C) Oral 63 9 95 % -- 10/16/22 0100 155/67 -- -- 61 21 92 % -- 10/16/22 0000 178/78 98.5 ??F (36.9 ??C) Oral 63 24 92 % -- 10/15/22 2313 -- -- -- 64 20 94 % -- 10/15/22 2300 178/81 -- -- 54 21 94 % -- 10/15/22 2200 172/75 -- -- 51 20 94 % -- 10/15/22 2100 170/77 -- -- 49 20 95 % -- 10/15/22 2000 169/85 -- -- 64 23 94 % -- 10/15/22 1900 167/65 -- -- 51 20 94 % -- 10/15/22 1800 154/72 98 ??F (36.7 ??C) Oral 52 18 99 % -- 10/15/22 1700 164/70 -- -- 66 23 96 % -- 10/15/22 1600 146/62 97.7 ??F (36.5 ??C) Oral 48 16 99 % -- 10/15/22 1500 162/70 -- -- 50 16 98 % -- 10/15/22 1400 168/73 97.8 ??F (36.6 ??C) Oral 66 16 96 % -- 10/15/22 1300 158/67 -- -- 62 13 97 % -- Exam: Pupils: Equal and briskly reactive; left unable to assess with pupillometer (dyscoria, likely 2/2 surgery). Opens eyes on command. Speech: dysarthric, fluent. Comprehension intact. Follows commands on right. Withdraws to pain on left side. Strength: 2/5 LUE, 2/5 LLE, 3/5 RUE, 4/5 RLE. No pronator drift on RUE. Sensation: Unable to sense light touch in left upper and lower extremities. Lungs: CTAx2 Heart: RRR, no murmurs. Assessment Esperanza Chaparro is a 67 year old male who presented 10/12 as a transfer from [facility] to [facility] ED with left-sided weakness, cortical signs, and NIHSS 21 with chronic R ICA occlusion and CTH evidence of multiple hypodensities in the right anterior temporal lobe and insula with repeat CTH after 6 hours demonstrating interval diffuse edema in the right MCA territory concerning for evolving acute infarct. Patient received TNK and was admitted to [facility] for post-tNK monitoring. MR brain 10/13 subsequently demonstrated late acute/ early subacute infarct in the R frontal, parietal, and temporal lobes consistent with known infarct in the R MCA and SHEA territories, no evidence of hemorrhagic transformation. Mechanism of acute stroke is likely large vessel, consider flow failure in the setting of relative hypotension with limited supply through collateral circulation in this patient with long segment occlusion of the right ICA from the carotid bulb to the terminus with reconstitution of flow to the right SHEA and MCA via the miami of Arvizu. Also consider cardioembolic given location of infarct in multiple vascular territories. Plan Neurological/psych #Acute infarct in the territory of the R MCA, SHEA, and small cerebellar infarct s/p TNK #Chronic R ICA occlusion on CTA - Neuro checks q1h - Stat CT head for any change in neurological examination - Head of bed > 30?? - Avoid hyperthermia, hypoglycemia, hyponatremia - Continue ASA and lipitor. Will add plavix following [facility] watch. - NSGY following for decompressive hemicraniectomy watch - Stroke workup complete - SBP goal 120-180 Analgesia/sedation: none #Encephalopathy, resolved - Consider multifactorial 2/2 hypoxia with mixed acidosis and relative hypotension (in this patientwith chronic R ICA occlusion). - cEEG: slowing (encephalopathy) with moderate suppression of R hemisphere. #Hx of ischemic stroke - Discharged on ASA and ticagrelol December 2021, currently only on ASA. SBP goal 140-160mmHg on discharge. - Continue ASA 81mg QD - Resume home rosuvastatin 40mg QHS #Prolactinoma - per patient's mother and sister, pt not taking prescribed cabergoline Cardiovascular - sBP 141-178 - HR 48-67 #HTN - Home meds: coreg 6.25mg BID, lisinopril 10mg QD - SBP goal 120-180 - Hemodynamic monitoring - Start amlodipine 10mg QD #Bradycardia #First degree AV block - Sinus kristal on EKG 12/2021 - EKG 10/12/22 with first degree AV block - Holding home coreg. - Repeat EKG today for HR 40s and follow up QTc. #Troponinemia, resovled - Likely demand post stroke - peak of 72 on 10/13 - EKst degree AV block, no VENKATA #CAD s/p stent (date unknown) #Hx of NSTEMI - Continue home ASA - Continue home rosuvastatin 40mg QD - Holding home nitroglycerin 0.3mg Respiratory SpO2 91-99% on RA #Intubated for acute hypoxic hypercarbic respiratory failure, extubated 10/15 #Airway obstruction 2/2 laryngeal abscess and airway edema s/p intubation c/b bleeding, succesfullyextubated 10/15 - Aspiration precautions - Elevate head of bed - Maintain oxygen saturation > 88% - Monitor for respiratory distress #COPD - Home meds: Fluticasone/Salmeterol 100/50 1 inh BID PRN, Tiotropium 2.5 mcg/Actuat 60D 2 inh once a day, and Albuterol 90 mcg 2 puffs QID PRN - Continue budesonide 500mcg nebs QD - Continue duo-nebs q4h #JAMES - Consider CPAP post extubation Renal/Electrolytes - Na: 143 - Cr: 1.72 (2.16) - eGFR: 43 - BUN: 60 - Bicarb: 20 - K: 4.9 - M.7 - Phos: 3 Intake/Output Summary (Last 24 hours) at 10/16/2022 1247 Last data filed at 10/16/2022 0622 Gross per 24 hour Intake 1695.23 ml Output 1200 ml Net 495.23 ml #BRYCE on CKD, improving - Pre-renal injury in this patient who has been NPO pending swallow. BUN/Cr 34 - CKD likely 2/2 DM and HTN - 24hr fluid intake: 1.7L IVF - 24hr urine output: 1.2L > Isolyte 100cc/hr running for 24 hours. > Condom cath with bladder scanner +sc q6h > Monitor intake and output > Replete electrolytes as needed #Mixed respiratory and non-anion gap metabolic acidosis on admission, resolved - ABG 10/13: pH 7.31 (7.12), pCO2 37 (62), pO2 134 (59), FiO2 50 (100). - Persistent non-gap metabolic acidosis attributed to RTA 2/2 CKD. > F/u daily serum bicarb and renal function #Hyperkalemia, resolved - No changes on EKG - f/u daily BMP Infectious Disease - Tmax overnight 37.1C - WBCs 10.4 #Leukocytosis, improving #Peritonsillar Abscess - F/u daily CBC - Monitor for fevers - ENT following, attempted bedside drain, no fluid drained. Unasyn (day 4/7), okay to transition tooral augmentin. 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 Heme/Onc No active issues - DVT ppx: SCDs and heparin sc. Endocrine HbA1C 7.7 #DM2 #Hyperglycemia - BG 135-245mg/dl over 24hr while NPO - Home regimen: empagliflozin 25mg QD - Required 20units lispro yesterday - Continue glargine to 20U and continue accuchecks + SSI q4h, will consider further adjustments as enteral nutrition resumes today. - BG goal 140-180 #HLD - Start home rosuvastatin 40mg. Musculoskeletal No active issues. DVT prophylaxis: SCDs LDAs: PIVs, NGT, condom cath. Disposition: NCC SW: pending PT/OT: pending Code Status: Full Patient's case was discussed & staffed w/ NCC Attending Dr. Luis Alberto Nelson MS4 Associated attestation - Adrianna Sahu MD - 10/16/2022 4:15 PM CDT Neurologic Critical Care Attending I spent 33 minutes in full attendance with this critically-ill patient. Time spent was exclusive ofseparately billed procedures, treating other patients, and teaching time. I have reviewed and agreewith resident/medical student documentation. The patient is at high risk for complications and morbidity or mortality. The patient is criticallyill with vital organ impairment of failure with high probability of imminent or life-threatening deterioration in the patient's condition. Critical care was necessary to treat or prevent life-threatening deterioration of the following: Ischemic stroke (CMS/HCC) (POA: Yes) Carotid occlusion, right (POA: Yes) Carotid stenosis, left (POA: Yes) Weakness (POA: Unknown) Coronary artery disease (POA: No) JAMES (obstructive sleep apnea) (POA: Yes) COPD (chronic obstructive pulmonary disease) (CMS/HCC) (POA: Unknown) Stage 3 chronic kidney disease (CMS/HCC) (POA: Unknown) Peritonsillar abscess (POA: Yes) Dyspnea (POA: Yes) Respiratory acidosis (POA: Yes) Hx of completed stroke (POA: Yes) DM2 (diabetes mellitus, type 2) (CMS/HCC) (POA: Yes) Primary hypertension (POA: Yes) Smoker (POA: Yes) The plan of care other than mentioned in resident/medical student note consists of: AIS. S/p TNK. Brain compression. Secondary stroke workup/prevention per stroke. Close neuro monitoring in the ICU given repeat CTH showed worsening brain compression this am. Examhas been stable which is reassuring. Repeat CTH @4am tmr NSGY consulted for DHC watch Acute hypoxic and hypercarbic respiratory failure - resolved. Now on RA Peritonsillar abscess. Unasyn for 7days DM. Adjust insulin to keep BG < 180 BRYCE on CKD. Montior UOP, replete lytes as needed. Hydration with IVF while NPO Dysphagia. Failed CHEMISTRY PHYSICS TEACHER again, place NG and start TF Adrianna Sahu MD Neurologic Critical Care Attending 10/16/2022 * Fito Hawkins MD - 10/16/2022 12:12 PM CDT Stroke Service Daily Progress Note Esperanza Chaparro Age: [age] year old Date of : 1955 Date of Admission: 10/12/2022 Hospital Day: 4 67 yo M hx of right ICA occlusion and R MCA infarction and peritonsillar abscess presented to [place] ED10/12 with somnolence, Left-sided hemiplegia, and right sided gaze deviation. S/p tnk at [facility] and intubated due to respiratory distress. Angiogram on 01/2022 shows R ICA occlusion. Admitted to NeuroICU. MRI with right MCA and SHEA cortical infarcts of the same acute age. 10/15: EEG with no epileptiform discharges. Patient extubated successfully this AM 10/16: Repeat CTH with slight increase in MLS. Subjective Interval History: See above. Objective Patient Vitals for the past 24 hrs: BP Temp Temp src Pulse Resp SpO2 Weight 10/16/22 1200 157/67 -- -- 59 17 (!) 89 % -- 10/16/22 1100 175/80 -- -- 62 16 92 % -- 10/16/22 1000 166/76 -- -- 51 19 93 % -- 10/16/22 0900 160/82 -- -- 52 19 93 % -- 10/16/22 0800 170/82 99.2 ??F (37.3 ??C) Axillary 66 21 90 % -- 10/16/22 0700 161/70 -- -- 57 18 93 % -- 10/16/22 0506 -- -- -- 62 20 91 % -- 10/16/22 0500 174/78 -- -- 67 29 92 % -- 10/16/22 0405 165/82 98.7 ??F (37.1 ??C) Oral 60 13 92 % -- 10/16/22 0400 -- -- -- -- -- -- 123 kg (271 lb 3.2 oz) 10/16/22 0300 167/75 -- -- 61 16 94 % -- 10/16/22 0200 171/80 98.4 ??F (36.9 ??C) Oral 63 9 95 % -- 10/16/22 0100 155/67 -- -- 61 21 92 % -- 10/16/22 0000 178/78 98.5 ??F (36.9 ??C) Oral 63 24 92 % -- 10/15/22 2313 -- -- -- 64 20 94 % -- 10/15/22 2300 178/81 -- -- 54 21 94 % -- 10/15/22 2200 172/75 -- -- 51 20 94 % -- 10/15/22 2100 170/77 -- -- 49 20 95 % -- 10/15/22 2000 169/85 -- -- 64 23 94 % -- 10/15/22 1900 167/65 -- -- 51 20 94 % -- 10/15/22 1800 154/72 98 ??F (36.7 ??C) Oral 52 18 99 % -- 10/15/22 1700 164/70 -- -- 66 23 96 % -- 10/15/22 1600 146/62 97.7 ??F (36.5 ??C) Oral 48 16 99 % -- 10/15/22 1500 162/70 -- -- 50 16 98 % -- 10/15/22 1400 168/73 97.8 ??F (36.6 ??C) Oral 66 16 96 % -- 10/15/22 1300 158/67 -- -- 62 13 97 % -- Intake/Output Summary (Last 24 hours) at 10/16/2022 1212 Last data filed at 10/16/2022 0622 Gross per 24 hour Intake 1695.23 ml Output 1200 ml Net 495.23 ml Exam: Patient breathing on room air, eyes open, follows basic commands Pupils reactive Corneal, Cough, and Gag reflex in tact Spontaneous movement of R arm and leg Still weaker in L arm and leg Labs: Recent Labs Component Name 10/16/222810/14/22235610/14/22117 WBC 10.4 10.5 11.5* RBC 3.78* 3.72* 3.86* HGB 11.0* 10.9* 11.3* HCT 33.9* 33.2* 35.0* Recent Labs Component Name 10/16/222810/14/22235610/14/22 011 NA 143 138 137 CL 116* 112* 114* CO2 20* 18* 16* BUN 60* 63* 52* CREATININE 1.72* 2.16* 2.04* CALCIUM 8.7 8.8 8.8 No results for input(s): MG in the last 71004 hours. Recent Labs Component Name 10/16/22 00210/14/22235610/14/22 011 PHOS 3.0 3.7 4.6 Recent Labs Component Name 10/12/22202001/19/22 0948 12/11/21 1227 PT 13.8 12.4 13.0 INR 1.1 0.9 1.0 PTT - - 35.2 No results for input(s): A1C in the last 95735 hours. Recent Labs Component Name 10/14/22 0118 10/13/22 0228 12/12/21 0205 CHOL - 148 188 HDL - 40* 33* LDLCALC - 85 112* TRIG 200* 117 216* Recent Labs Component Name 10/16/22 0029 TSH 1.008 Recent Labs Component Name 12/13/21 0301 12/12/21 1229 12/12/21 0205 TROPONINI 0.046* 0.039* 0.042* ECHO TRANSTHORACIC W BUBBLE STUDY Result Date: 10/15/2022 ??? Left??Ventricle: Left ventricle is mildly dilated. Normal systolic function. EF by 2D Ayala biplane is 61%. Regional wall motion abnormalities present. See diagram for wall motion findings. Normal diastolic function. ??? Left??Atrium: No interatrial septum shunt present viewable with agitatedsaline. CT HEAD WO CONTRAST Result Date: 10/14/2022 PROCEDURE: CT HEAD WO CONTRAST DATE/TIME OF EXAM: 10/14/2022 10:36 AM CLINICAL INFORMATION: None relevant/not provided if blank. Indication: R53.1: Weakness Additional History: COMPARISON: MRI brain 10/14/2022, CT head 10/13/2022 TECHNIQUE: Noncontrast CT brain was performed utilizing standard protocol. CT dose reduction technique was used, including Automated Exposure Control. FINDINGS: Interval increase in the confluent hypodensity involving the right frontal parietal and temporal lobes right MCA territory and also in the right SHEA territory consistent with known acute evolving infarct. There is localized mass effect with effacement of the sulci. No significant midline shift. Chronic infarct inthe right occipital lobe. Previously noted minimal petechial hemorrhages on MRI are not conspicuouson this study could be secondary to technique. Minimal mass effect on the right lateral ventricle. Mild interval decrease in the caliber of right lateral ventricle compared to the prior study. Mild interval decrease in the caliber of ventricles compared to prior study could be secondary to edema. For example third ventricle previously measured 8 mm now measures about 6 mm. Basilar cisterns are patent. No evidence of transtentorial or tonsillar herniation. Redemonstration of expansile lesion invo lving the the clivus No interval change in the expansile soft tissue lesion along the left lateral aspect of the sella with the thinning of the bone, unchanged compared to study from 12/11/2021 with the T2 hyperintensity on MRIs could be secondary to benign lesions like mucoceles however no postcontrast imaging is available for accurate characterization. Otherwise no acute osseous abnormality. Bilateral cataract replacement. IMPRESSION: 1. Redemonstration of large confluent evolving acute infarction in the right MCA territory and right SHEA territory involving most of the right cerebral hemisphere with local mass effect. No significant midline shift or evidence of herniation. No large hematoma however minimal petechial hemorrhages cannot be excluded. > Interpreting Provider: Re Sage MD on 10/14/2022 4:40 PM MRI BRAIN WO CONTRAST Result Date: 10/14/2022 PROCEDURE: MRI BRAIN WO CONTRAST, DATE/TIME OF EXAM: 10/14/2022 12:00 AM, LOCATION [facility] INDICATION: R53.1: Weakness ADDITIONAL CLINICAL INFORMATION: Ordering Provider Reason ForExam: Acute ischemic stroke EXAMINATION: Magnetic resonance imaging [...] basal ganglia, including putamen and caudate nuclei. Thisbelong to the right SHEA and MCA territory. [...] Encephalomalacia/gliosis is seen in the region of rightsuperior frontal lobe (series 9 image 19) and right temporoparietal region (series 9 image 10). Thecorpus callosum and sella appear normal. The posterior fossa, brainstem, and craniocervical junction appear normal. Other than bilateral cataract extractions, the visualized portions of the orbits appear grossly unremarkable. There is mild paranasal sinus disease. There is mild opacification in themastoid air cells, left more than right. The patient is intubated. Fluid and retained secretions inthe nasopharynx. The calvarium and visualized cervical spine [...] verification. Report dictated by Miguel Escamilla MD (residential tech) Sundar Orourke MD have personally reviewed and interpreted this examination/study. > Interpreting Provider: Sundar Devine MD on 10/14/2022 1:12 PM XR ABDOMEN KUB PORTABLE Result Date: 10/14/2022 PROCEDURE: XR ABDOMEN KUB PORTABLE, DATE/TIME OF EXAM: 10/13/2022 10:23 PM, LOCATION [facility] INDICATION: R13.10: Dysphagia, unspecified type ADDITIONAL CLINICAL INFORMATION: Ordering Provider Reason For Exam: OG tube placement COMPARISON: Abdominal radiograph 10/13/2022 at 10:52 AM FINDINGS/IMPRESSION: Enteric tube courses below the diaphragm with the distal tip superimposing thegastric body. Partially imaged colonic gaseous distention, increased from the prior exam. Report dictated by Oscar Santizo MD (residential tech). CEDRIC Orourke MD have personally reviewedand interpreted this examination/study. > Interpreting Provider: CEDRIC FLORES MD on 10/14/2022 7:[address] HEAD NON CONTRAST Result Date: 10/13/2022 EXAM: CT HEAD WO CONTRAST, DATE/TIME OF EXAM: 10/13/2022 8:29 PM, LOCATION: [facility] HISTORY: R53.1: Weakness ADDITIONAL CLINICAL INFORMATION: Ordering Provider Reason For Exam: Post tPa imaging EXAMINATION: CT scan of the head without intravenous contrast TECHNIQUE: CT of the head was performed without intravenous contrast according to standard protocol. CT dose reduction technique was used, including Automated Exposure Control. COMPARISON: Head CTs 10/13/2022 at 1:07 AM and 10/12/2022. FINDINGS: See impression. IMPRESSION: 1.Further increased conspicuity of large areas of hypoattenuation with loss of goldman-white differentiation involving the right frontal, parietal, and temporal lobes in addition to the right insula, which is consistent with an evolving large acute infarct corresponding to the right middlecerebral artery (MCA) vascular territory. 2.Further increased conspicuity of a moderately-size areaof hypoattenuation with loss of goldman-white differentiation along the parasagittal right frontal lobe, consistent with an evolving large acute infarct corresponding to the right anterior cerebral artery (SHEA) vascular territory. 3.No evidence of hemorrhagic conversion, significant midline shift, brain herniation, or evidence of hydrocephalus. 4.Please refer to recently reported head CTs 10/12/2022 and 10/12/2022 for description of additional chronic findings. Results of this exam were verbally discussed by Dr. Zelda Willams with Dr. Brannon on 10/13/2022 at 9:02 PM for a Critical Stroke Protocol withreadback confirmation and verification. The images were reviewed by attending physician Dr. Zelda Willams prior to this communication. > Interpreting Provider: Zelda Willams MD, PhD on 10/13/2022 9:09 PM XR CHEST 1VW PORTABLE Result Date: 10/13/2022 PROCEDURE: XR CHEST 1VW PORTABLE, DATE/TIME OF EXAM: 10/13/2022 1:53 AM, LOCATION [facility] INDICATION: R06.00: Dyspnea, unspecified type ADDITIONAL CLINICAL INFORMATION: Ordering Provider Reason For Exam: ETT position COMPARISON: Chest x-ray 10/13/2022. FINDINGS/IMPRESSION: Endotracheal tube terminates at the level of thoracic inlet/mid thoracic trachea, approximately 7 cm above the cathi. A loop recorder superimposes the left chest. There is minimal basilar atelectasis. There is no focal consolidation, pleural effusion, or pneumothorax. The heart size is normal and mediastinal contours are normal. > Dictated by Noe Bravo MD (residential tech). I, Wen Lee MD have personally reviewed and interpreted this examination/study. > Interpreting Provider: Wen Lee MD on 10/13/2022 2:16 PM XR CHEST 1VW PORTABLE Result Date: 10/13/2022 EXAMINATION: XR CHEST 1VW PORTABLE HISTORY: E87.29: Respiratory acidosis COMPARISON: Chest radiograph 10/13/2022 at 1:46 AM FINDINGS/IMPRESSION: Lines: *Endotracheal tube terminates within the mid thoracic trachea. *A loop recorder is partially visualized superimposing the left chest. Aside from mildbibasilar atelectasis, there is no confluent consolidation. No pleural effusion is seen. No pneumothorax is identified. The cardiac silhouette is within normal limits. Aortic atherosclerosis is noted. The superior mediastinal contours are within normal limits. No acute osseous abnormality is identified. Report dictated by Oscar Santizo M.D. (residential tech) 10/13/2022 7:05 AM CEDRIC Orourke MD have personally reviewed and interpreted this examination/study. > Interpreting Provider: CEDRIC FLORES MD on 10/13/2022 2:14 PM XR ABDOMEN KUB PORTABLE Result Date: 10/13/2022 PROCEDURE: XR ABDOMEN KUB PORTABLE, DATE/TIME OF EXAM: 10/13/2022 11:01 AM, LOCATION [facility] INDICATION: R53.1: Weakness ADDITIONAL CLINICAL INFORMATION: Ordering Provider Reason For Exam: MRI COMPARISON: None. TECHNIQUE: Supine frontal radiograph of the abdomen. FINDINGS: A looprecorder overlies the left axilla. No evidence of retained metallic density foreign bodies within the abdomen. The urinary bladder is opacified with contrast material. Moderate gas and stool are present. There are no findings to suggest bowel obstruction, free intraperitoneal gas or pneumatosis. Noabnormal calcifications are seen. No bone abnormality is seen. IMPRESSION: 1.A loop recorder overlies the left axilla. No evidence of retained metallic density foreign bodies within the abdomen. 2.Nonobstructive bowel gas pattern. Report dictated by Oscar Santizo M.D. (residential tech) 10/13/2022 11:03 AM Adiel Orourke MD have personally reviewed and interpreted this examination/study. > Interpreting Provider: Adiel Lynn MD on 10/13/2022 1:03 PM XR CHEST 1VW PORTABLE Result Date: 10/13/2022 EXAMINATION: XR CHEST 1VW PORTABLE HISTORY: R06.00: Dyspnea, unspecified type E87.29: Respiratory acidosis COMPARISON: Chest radiograph 10/12/2022 FINDINGS/IMPRESSION: Lines: *Interval insertion of endotracheal tube which terminates in the proximal thoracic trachea, 6 cm from the cathi. *A loop recor manish superimposes the left chest. No confluent consolidation is noted. No pleural effusion is seen. No pneumothorax is identified. The heart is borderline enlarged. Aortic atherosclerosis is noted. The superior mediastinal contours are within normal limits. No acute osseous abnormality is identified. Report dictated by Oscar Santizo M.D. (residential tech) 10/13/2022 7:05 AM IAdiel MD have personally reviewed and interpreted this examination/study. > Interpreting Provider: Adiel Lynn MD on 10/13/2022 11:[address] NECK SOFT TISSUE W CONT Result Date: 10/13/2022 PROCEDURE: CT NECK SOFT TISSUE W CONT, DATE/TIME OF EXAM: 10/13/2022 1:29 AM, LOCATION [facility] INDICATION: R06.00: Dyspnea, unspecified type ADDITIONAL CLINICAL INFORMATION: Ordering Provider Reason For Exam: Peritonsillar abscess Technologist Note: None. Additional: Per chart review, patient was difficult to intubate and multiple attempts were required. CONTRAST: IOPAMIDOL 76 % IV SOLN:75 mL EXAMINATION: Computed tomography (CT) of the neck with contrast TECHNIQUE: CT of theneck was performed following the uneventful administration of 75 mL Isovue-370 contrast according to standard protocol. CT dose reduction technique was used, including Automated Exposure Control. COMP ARISON: CT angiogram of the neck performed 10/30 [...] kenneth bullosa.. Paraseptal emphysema and lung scarring. IMPRESSION: 1.Findings concerning for right peritonsillar abscess with associated diffuse pharyngitis and extensive laryngeal edema, extending to the level of the supraglottic larynx, resulting in airway compromise status post endotracheal intubation. Preliminary findings were discussed with the patient's care provider, Dr. Brannon by Dr. Cleveland via telephone at 0248 on 10/13/2022 with readback comprehension and verification. > Dictated by Dean Cleveland M.D. (residential tech) I, Sundar Devine MD have personally reviewed and interpreted this examination/study. > Interpreting Provider: Sundar Devine MD on 10/13/2022 10:[address] HEAD WO CONTRAST Result Date: 10/13/2022 PROCEDURE: CT HEAD WO CONTRAST, DATE/TIME OF EXAM: 10/13/2022 1:26 AM, LOCATION [facility] INDICATION: I63.9: Ischemic stroke ([facility]) EXAMINATION: Computed tomography (CT) of the head without contrast ADDITIONAL CLINICAL INFORMATION: Ordering Provider Reason For Exam: Acute respiratory distress. R/o central causes Technologist Note: None. Additional: None. TECHNIQUE: CT of the head was performed without contrast according to standard protocol. CT dose reduction technique was used, including Automated Exposure Control. COMPARISON: CT of the head from 10/12/2022. FINDINGS: No acute intra- or extra-axial fluid collections are identified. There is mild cerebral volume loss with associated ex vacuo ventricular dilatation. The basilar cisterns are patent. No significant mass effect or midline shift is seen. There has been interval mild diffuse but subtle hypoattenuation and loss of orozco-white matter differentiation involving larger portions of the right frontal and right temp oral lobes as well as the right insula, and possibly posterior lateral temporal lobes which could represent acute evolving acute right MCA territory infarcts. MRI of the brain is recommended for further evaluation. Additional subtle hypoattenuation along the parasagittal right frontal lobe is also noted. Redemonstration of chronic infarcts with areas of encephalomalacia and gliosis in the right frontal and right parietal as well as the right occipital lobes compatible with chronic right MCA, SHEA, and BOARD MEMBER territory infarcts. Additional tiny lacunar infarcts in the bilateral cerebellar hemispheres are again noted. Periventricular white matter hypoattenuation is indicative of chronic small vess el ischemic disease. There is vascular calcification of the carotid siphons. No acute calvarial fracture is identified. Other than bilateral cataract extractions, the orbits appear normal. There is mild paranasal sinus disease. Opacification of the nasal passages and the nasopharynx. The patient is intubated. The mastoid air cells are grossly clear. Calcific densities along the left frontal scalpare again noted. No soft tissue abnormality is otherwise identified. IMPRESSION: 1.Suggestion of interval diffuse edema in the right MCA territory concerning for evolving right MCA territory ischemia. MRI of the brain is recommended for further evaluation.. 2.Additional chronic findings as outlined above. Results of this exam were communicated with closed loop confirmation to Dr. Mendenhall by Dr. Devine on 10/13/2022 at 9:54 AM with read back compression and verification. Report dictated by Romain Mckee MD, PhD (residential tech). I, Sundar Devine MD have personally reviewed and interpreted this examination/study. > Interpreting Provider: Sundar Devine MD on 10/13/2022 10:21 AM XR CHEST 1VW PORTABLE Result Date: 10/13/2022 EXAMINATION: XR CHEST 1VW PORTABLE HISTORY: R53.1: Weakness COMPARISON: Chest radiograph dated 12/11/2021 FINDINGS/IMPRESSION: Lines: *A loop recorder superimposes the left chest. No confluent consolidation is noted. No pleural effusion is seen. No pneumothorax is identified. The heart is enlarged for this AP view. Aortic atherosclerosis is noted. The superior mediastinal contours are within normallimits. No acute osseous abnormality is identified. No free air is seen under the diaphragm. > Interpreting Provider: CEDRIC FLORES MD on 10/13/2022 6:[address] ANGIO BRAIN NECK STROKE Result Date: 10/12/2022 EXAM: CT ANGIO BRAIN NECK STROKE, DATE/TIME OF EXAM: 10/12/2022 7:42 PM, LOCATION: [facility] HISTORY: Code Stroke EXAMINATION: CT angiogram images [...] right middle cerebral artery (MCA) via the [place] of [place]/patent anterior communicating artery. Diminished opacification of the right MCA M1 segment and distal branches with notable markedly diminutive opacification versus nonopacification of the MCA M3 segment and beyond. No occlusion or hemodynamical ly significant stenosis elsewhere of the major intracranial arteries. Patent intracranial left ICA,left MCA, bilateral ACAs, vertebral artery V4 segments, [...] ARTERIES: No occlusion or hemodynamically significant stenosis. Noevidence of dissection. OTHER: Partially imaged lung apices [...] the right SHEA and MCA via the [place] of [place]vizu. Diminished opacification of the right [...] communication. Report dictated by Gilbert Morrow MD (residential tech). I, Zelda Willams MD, PhD have personally reviewed and interpreted this examination/study. > Interpreting Provider: Zelda Willams MD, PhD on 10/12/2022 8:[address] BRAIN - Stroke Result Date: 10/12/2022 EXAM: CT BRAIN STROKE, DATE/TIME OF EXAM: 10/12/2022 7:32 PM, LOCATION: [facility] HISTORY: Code Stroke EXAMINATION: CT scan of [...] PARENCHYMA: No acute parenchymal hemorrhage. Apparent hypodensity ofthe right anterior temporal lobe and insular region, which is nonspecific and may be attributable to motion artifact or possibly representing areas of evolving acute infarct. No mass effect, midline shift, or brain herniation. Re-demonstrated areas of encephalomalacia involving the right frontal and right parietal lobes, consistent with chronic infarcts involving the right middle cerebral artery ( MCA) vascular territory and right anterior cerebral artery (SHEA)/MCA watershed territory. Re-demonstrated area of encephalomalacia involving the right occipital lobe, consistent with a chronic infarct involving the right posterior cerebral artery (BOARD MEMBER) vascular territory. Multiple small chronic lacunes of [...] tissues. Mildly expansile soft tissue lesion of qeu-up-bskanuebfb of the sella turcica measuring 2.1 x 1.6 cm (09/03), which is associated with thinning of thedorsum sellae and is incompletely assessed on this [...] infarct. Recommend follow-up brain MRI without contrast forfurther evaluation. 3.Multiple chronic infarcts of the right cerebral hemisphere and multiple smallchronic lacunes of the left greater than right cerebellar hemispheres as described. 4.Mildly expansile soft tissue lesion of the mid-to-left aspect of the sella turcica measuring 2.1 x 1.6 cm, which is associated with thinning of the dorsum sellae and is incompletely assessed on this examination. Recommend follow-up sella MRI without and with contrast. Results of this exam were verbally discussedby Dr. Zelda Willams with Dr. Brannon on 10/12/2022 at 7:44 PM for a Critical Stroke Protocol with readback confirmation and verification. The images were reviewed by attending physician Dr. Zelda Willamsprior to this communication. > Interpreting Provider: Zelda Willams MD, PhD on 10/12/2022 8:20 PM Ischemic stroke (CMS/HCC) (POA: Yes) Carotid occlusion, right (POA: Yes) Carotid stenosis, left (POA: Yes) Weakness (POA: Unknown) Coronary artery disease (POA: No) JAMES (obstructive sleep apnea) (POA: Yes) COPD (chronic obstructive pulmonary disease) (CMS/HCC) (POA: Unknown) Stage 3 chronic kidney disease ([facility]) (POA: Unknown) Peritonsillar abscess (POA: Yes) Dyspnea (POA: Yes) Respiratory acidosis (POA: Yes) Hx of completed stroke (POA: Yes) DM2 (diabetes mellitus, type 2) ([facility]) (POA: Yes) Primary hypertension (POA: Yes) Smoker (POA: Yes) Assessment Esperanza Chaparro is a 67 year old male presenting 10/12 from [place] for left sided hemiparesis and aphasia. CTH with acute on chronic infarcts. CTA with chronic right ICA complete occlusion identified on Cerebral Angiogram in 01/2022. S/p TNK but MT not pursued due to low ASPECT score. MRI with right frontal, parietal, and temporal lobes consistent with known infarct in right MCA and SHEA territories with no hemorrhagic transformation. Mechanism is large artery. Flow failure possible given distribution and appearance of lesions on MRI, and also in the setting of infection which was being treated at [place].Proximal or distal stump syndrome can also be considered but less likely given both MCA and SHEA involvement. Stroke Type: Ischemic Stroke Mechanism: Large Artery: Flow failure vs. Carotid stump styndrome Plan R SHEA/MCA Territory Infarctions Chronic R ICA occlusion - Stroke workup complete - On aspirin 81 mg, Atorvastain 80 mg for secondary prevention - Will add plavix when there is less potential for neurosurgical intervention. - If patient has future ischemic vascular injury, can consider switching to anticoagulation with Single antiplatelet therapy. - Disposition acute rehab. Blood Pressure Goals: SBP: 130-180 per NCC, 160 difficult to manage given BRYCE with oral antihypertensives. Core Measures tPA administration: yes Anti-thrombotic: Aspirin 81 mg Statin: Atorvastatin 80 mg DVT prophylaxis: Subcutaneous heparin Swallow Evaluation: pending PT/OT Evaluation: pending Smoking cessation; will cancer genetic counselor: pending Individual Modifiable Risk Factors Hypertension: yes Hyperlipidemia: yes Diabetes: yes Atrial Fibrillation: no Tobacco: no Diabetes plan of care based on A1c: Patient's A1c is equal to or greater than 6.5%. For patients with diabetes (A1c >6.5%), SGLT-2 inhibitors or GLP-1 receptor agonists have been shown to reduce major adverse cardiovascular events. These medications require close follow up with PCP or yarn spinner and lab monitoring. Due to this reason, we have deferred treatment until outpatient follow up. Facility Manager Histology should be consulted to provide patient education. Patient will follow with PCP/Reconcilement Clerk after discharge for diabetes medications and continued disease management. Additional Hospital Problems: Peritonsillar Abscess - Unasyn 3 g q6h per NCC - ENT following - Extubated 10/15 T2DM - A1C 7.7% - Lantus 15 U q24hr COPD -Hx smoking - PFTs ordered - Duonebs q4hr - Salmeterol q12h prn HTN - Coreg 3.125 mg BID restarted. - on Coreg 6.25 mg BID and Lisinopril 10 mg QD at home Hx CAD s/p stent: - Resumed home ASA - Resumed home Rosuvastatin 40 mg QD HLD - Start home Rosuvastatin 40 mg Case findings discussed with Dr. Hall, Stroke Attending. Fito Hawkins MD Neurology Resident * Jorge Hall MD - 10/16/2022 11:57 AM CDT Images from the original note were not included. The above note was reviewed. The patient was seen and examined. I would add the following: I saw and examined the patient with the resident and/or medical student and/or nurse practitioner. I have verified all details of the note and agree with his/her documentation with additions and modifications as listed in my separate note. Please refer to the resident's, medical student's, or nursepractitioner's note for plans of active problems not discussed in this note. 67M with hx of right ICA occlusion and R MCA infarction and peritonsillar abscess presented on 10/12 to the [place] ED for somnolence, left-sided hemiplegia and right-sided gaze deviation. Upon arrival to [place] S/p TNK and intubation for respiratory distress. Angiogram 01/2022 showed R ICA occlusion. Admitted to ICU. MRI right MCA and SHEA cortical infarcts of the same acute age. Based on distribution and appearance of the acute lesions etiology is possibly flow failure given limited baseline supply through the collateral circulation (AComm and ECA) which could have happened in the context of the infection. Alternatively may consider proximal or distal stump syndrome given chronic ICA occlusion. Extubated on 10/14, tolerating well. TTE non diagnostic. - Currently on ASA; will start plavix when there's less potential for neurosurgical intervention - Maintain perfusion with SBP goals 130-160; lobsterman goal- normotensive. - Continue Lipitor - ENT on board for the abscess - s/p abscess aspiration,on zosyn MEDICATIONS FOR CURRENT ENCOUNTER: SCHEDULED MEDICATIONS: 0.9% NaCl injection 3 mL, Intracatheter, q8h 0.9% NaCl injection 3 mL, Intracatheter, q8h albuterol-ipratropium (Duo-Neb) nebulizer solution 3 mL, Inhalation, q6h ampicillin-sulbactam (Unasyn) 3 g in 0.9% NaCl IV 100 mL IVPB, Intravenous, q6h artificial tears ophthalmic ointment, Each Eye, q8h aspirin chew tablet 81 mg, Enteral Tube, QDAY budesonide (Pulmicort) nebulizer suspension 500 mcg, Inhalation, QDAY heparin injection 5,000 Units, Subcutaneous, q8h insulin glargine (Lantus) pen 20 Units, Subcutaneous, q24h insulin lispro (HumaLOG;ADMelog) 100 UNIT/ML pen 0-24 Units, Subcutaneous, q4h nicotine (Nicoderm CQ) patch 21 mg, Transdermal, QDAY perflutren lipid microsphere (Definity) injection 0.5 mL, Intravenous, intra- Procedure multiple rosuvastatin (Crestor) tablet 40 mg, Enteral Tube, QDAY senna-docusate (Senokot-S) tablet 1 tablet, Enteral Tube, QDAY [COMPLETED] aspirin suppository 300 mg, Rectal, Once ?? [] lidocaine (Xylocaine) 4 % solution, Topical, Once CONTINUOUS MEDICATIONS: ?? isolyte-S pH 7.4 infusion, Intravenous, Continuous PRN MEDICATIONS: Or Or 0.9% NaCl injection 1-10 mL, Intracatheter, PRN 0.9% NaCl injection 3 mL, Intracatheter, PRN acetaminophen (Tylenol) suppository 650 mg, Rectal, q4h PRN acetaminophen (Tylenol) tablet 650 mg, Oral, q6h PRN albuterol (Proventil;Ventolin) (2.5 MG/3ML) 0.083% nebulizer solution 2.5 mg, Inhalation, q6h PRN dextrose 10 % IV bolus, Intravenous, PRN dextrose 10 % IV bolus, Intravenous, PRN glucagon (Glucagen) injection 1 mg, Subcutaneous, PRN glucose (Diabetic Use) (Dex4 Glucose) oral liquid, Oral, PRN glucose (Diabetic Use) oral gel, Oral, PRN glucose chew tablet 4 tablet, Oral, PRN ?? polyethylene glycol 3350 (Miralax) packet 17 g, Enteral Tube, QDAY PRN Patient Vitals for the past 24 hrs: Temp Pulse Resp BP 10/16/22 1100 -- 62 16 175/80 10/16/22 1000 -- 51 19 166/76 10/16/22 0900 -- 52 19 160/82 10/16/22 0800 99.2 ??F (37.3 ??C) 66 21 170/82 10/16/22 0700 -- 57 18 161/70 10/16/22 0506 -- 62 20 -- 10/16/22 0500 -- 67 29 174/78 10/16/22 0405 98.7 ??F (37.1 ??C) 60 13 165/82 10/16/22 0300 -- 61 16 167/75 10/16/22 0200 98.4 ??F (36.9 ??C) 63 9 171/80 10/16/22 0100 -- 61 21 155/67 10/16/22 0000 98.5 ??F (36.9 ??C) 63 24 178/78 10/15/22 2313 -- 64 20 -- 10/15/22 2300 -- 54 21 178/81 10/15/22 2200 -- 51 20 172/75 10/15/22 2100 -- 49 20 170/77 10/15/22 2000 -- 64 23 169/85 10/15/22 1900 -- 51 20 167/65 10/15/22 1800 98 ??F (36.7 ??C) 52 18 154/72 10/15/22 1700 -- 66 23 164/70 10/15/22 1600 97.7 ??F (36.5 ??C) 48 16 146/62 10/15/22 1500 -- 50 16 162/70 10/15/22 1400 97.8 ??F (36.6 ??C) 66 16 168/73 10/15/22 1300 -- 62 13 158/67 10/15/22 1200 98.3 ??F (36.8 ??C) 49 16 141/62 Intake/Output Summary (Last 24 hours) at 10/16/2022 1157 Last data filed at 10/16/2022 0622 Gross per 24 hour Intake 1695.23 ml Output 1200 ml Net 495.23 ml Labs: Recent Labs Component Name 10/14/22 0118 10/13/22 0228 12/12/21 0205 CHOL - 148 188 TRIG 200* 117 216* HDL - 40* 33* LDLCALC - 85 112* Recent Labs Component Name 10/12/22223012/11/21 1227 HGBA1C 7.7* 7.1* Recent Labs Component Name 10/16/222810/14/22235610/14/228 10/12/22 2353 NA 143 138 137 137 POTASSIUM 4.9* 4.8* 5.2* 5.1* CL 116* 112* 114* 110* CO2 20* 18* 16* 18* BUN 60* 63* 52* 34* CREATININE 1.72* 2.16* 2.04* 1.40* CALCIUM 8.7 8.8 8.8 9.4 MAGNESIUM 2.7* 2.6 2.7* 1.9 PHOS 3.0 3.7 4.6 3.5 Recent Labs Component Name 10/16/22 00210/14/22235610/14/228 10/13/22 0535 10/12/22 2353 WBC 10.4 10.5 11.5* 15.1* 22.0* HGB 11.0* 10.9* 11.3* 11.8* 13.4 HCT 33.9* 33.2* 35.0* 35.4 41.3 PLTCOUNT 179 174 174 - 237 RBC 3.78* 3.72* 3.86* 4.01* 4.62 Recent Labs Component Name 10/12/22202001/19/22 0948 12/11/21 1227 PT 13.8 12.4 13.0 INR 1.1 0.9 1.0 PTT - - 35.2 Recent Labs Component Name 10/13/22 0535 10/13/22 0228 10/12/22 2353 PH 7.31* 7.28* 7.12* PCO2 37 40 62* PO2 134* 115* 59* FIO2 50.0 50.0 100.0 Patient Vitals for the past 24 hrs: Glucose Bedside (mg/dL) 10/15/22 2111 155 mg/dL 10/16/22 0000 142 mg/dL Micro: Microbiology Results (Displays last 21 days for this encounter ONLY) No results found for the last 504 hours. Length of stay: 4 Problem List Ischemic stroke (CMS/HCC) (POA: Yes) Carotid occlusion, right (POA: Yes) Carotid stenosis, left (POA: Yes) Weakness (POA: Unknown) Coronary artery disease (POA: No) JAMES (obstructive sleep apnea) (POA: Yes) COPD (chronic obstructive pulmonary disease) (CMS/HCC) (POA: Unknown) Stage 3 chronic kidney disease (CMS/HCC) (POA: Unknown) Peritonsillar abscess (POA: Yes) Dyspnea (POA: Yes) Respiratory acidosis (POA: Yes) Hx of completed stroke (POA: Yes) DM2 (diabetes mellitus, type 2) (CMS/HCC) (POA: Yes) Primary hypertension (POA: Yes) Smoker (POA: Yes) Present on Admission: ??? Ischemic stroke (CMS/HCC) ??? DM2 (diabetes mellitus, type 2) (CMS/HCC) ??? Hx of completed stroke ??? Primary hypertension ??? Smoker ??? Carotid occlusion, right ??? Carotid stenosis, left ??? JAMES (obstructive sleep apnea) ??? Peritonsillar abscess ??? Dyspnea ??? Respiratory acidosis Routine multidisciplinary rounds were completed today with the presence of the primary team staff, residents, PT/OT/CHEMISTRY PHYSICS TEACHER and CM/SW. Jorge Hall MD Vascular and Interventional Neurology * Tere Beebe OT - 10/16/2022 10:51 AM CDT [facility] Physical Medicine and Rehabilitation Occupational Therapy Initial Evaluation Note Patient: Esperanza Chaparro Med Record Number: [id number] Date of : 1955 Age: [age] year old PPE worn by staff: gloves;mask - procedural PPE worn by patient: gown - patient, clean;socks - clean Tech: n/a. Patient seen as cotx with PT due to anticipated level of assist, skilled needs Recommendations: Discharge OT Discharge Recommendations: Patient would benefit from intensive 3-hour multidisciplinary therapy This recommendation is made due to ongoing intensive OT functional needs: patient demonstrates a significant functional decline and would benefit from skilled therapy intervention to restore function In addition to the 1:1 evaluation of the patient, additional eval time was spent completing the chart review prior to the assessment, completing the multidisciplinary plan of care and education plan post evaluation and communicating results of the eval to other treatment team members. Nurse and Physical Therapy contacted regarding patient status and/or discharge plan. Physician Orders: Evaluation and Treat Activity Level: as tolerated DIAGNOSIS: Patient Active Problem List: Hx of completed stroke DM2 (diabetes mellitus, type 2) ([facility]) Chronic low back pain Left leg weakness Primary hypertension Smoker Carotid occlusion, right Carotid stenosis, left Weakness Ischemic stroke ([facility]) Coronary artery disease JAMES (obstructive sleep apnea) COPD (chronic obstructive pulmonary disease) ([facility]) Stage 3 chronic kidney disease ([facility]) Peritonsillar abscess Dyspnea Respiratory acidosis Past Medical History: Diagnosis Date ??? Atherosclerosis of coronary artery ??? Chronic obstructive pulmonary disease (COPD) ([facility]) ??? Essential hypertension ??? History of diabetes mellitus ??? MD (myocardial infarction) ([facility]) ??? Sleep apnea Pt states he was dx with sleep apnea, but cpap did not help ??? Snoring ??? SOB (shortness of breath) SUBJECTIVE: Subjective: I'm so hungry . Pt alert, agreeable to therapy. PATIENT GOALS: Patient's Primary Concern: to be able to have something to eat/drink Home Situation: Type of Residence: Private Residence Lives with:: Sister Steps to Enter: 5 Home Structure: One Story Primary Bedroom: First Floor Primary Bathroom: First Floor Equipment at Home: Walker-4 Wheeled with Seat Prior Level of Functioning: Mobility: Ambulate-In Home ;With Assistive Device Fallen Within 6 Mos: 1 Have Help at Home?: Yes, there is help at home now Who assists you at home?: Friends/Family Oxygen at Home: No Vision: Corrected with glasses Pain Assessment: Pain Location #1 Pain Scale/Observation: Numeric (0-10) Pain Rating Score #1: 8 Pain Location : Groin Pain Intervention(s): Non-pharmacological (RN aware) Non-pharmacological interventions: Reposition OBJECTIVE: At start of therapy session, patient found in bed General Appearance: Adult male, resting in bed, NAD LDA: IV's: Peripheral line and external catheter Edema: Minimal edema noted in right upper extremity and Minimal edema noted in left upper extremity Vitals: (*Assess the 3 levels of oxygen saturations both for room air and 02 unless rest on room air is 88% or less). Rest BP: 169/75 HR: 61 Sp02 ? 91% Room Air ? Ex/Gait/Activity Without 02 BP: ??-- HR: 68 Sp02 93% Room Air ?? Post Activity BP: ??-- HR: 60 Sp02 ? 92% Room Air ? Observations: Denies dizziness/SOB with activity or positional change. Mental Status/Cognition: Level of Consciousness-Adult: Alert Orientation Level: Oriented to Person;Oriented to Place (Oriented to year, general situation) Cognition: Judgement-decreased;Processing-delayed;Safety awareness- decreased;Follows one step commands Attention Span: Attends with cues to redirect Memory: Decreased recall of recent events Following Commands: Follows one step commands consistently UE ROM: RUE: AROM WFL LUE: PROM WFL Strength: RUE: WNL LUE: 0/5 UE Tone RUE: no abnormal tone noted LUE: moderate severe extensor tone Coordination: deficits noted for serial opposition UE Sensation RUE: no complaints of numbness or tingling LUE: diminished light touch sensation , diminished deep pressure sensation Perception: Inattention/Neglect: Cues to maintain midline in standing Initiation: Cues to initiate tasks Visual/Motor Tracking: Requires cues, head turns, or add eye shifts to track Visual Orozco: WDL Acuity: WDL Mobility: A gait belt and non-slip socks were used for all out of bed activity this date. Bed Mobility: Rolling: Maximal Assistance to Right;Maximal Assistance to Left Supine to Sit: Maximum Assistance;X 2 with HOB in semi-fowlers position Sit to Supine: Maximum Assistance;X 2 Transfers: Sit to Stand: Activity Does Not Occur (deferred due to poor sitting balance) Balance: Balance Scales/Tests Used: Sitting: Static/Dynamic;Standing: Static/Dynamic Sitting - Static: Poor (strong L lateral lean while seated EOB) Sitting - Dynamic: Poor Activities of Daily Living Feeding: Activity Does Not Occur (NPO at time of tx) Oral Facial Hygiene: Moderate Assistance;Maximal Assistance (oral care with suction) Bathing: Activity Does Not Occur Upper Body Dressing: Maximal Assistance (don gown) Lower Body Dressing: Activity Does Not Occur Toileting: Activity Does Not Occur (no needs at time of tx) Splint Issued/Checked: none ACTIVITY TOLERANCE: Patient's activity tolerance: fair Modified Rohan: Current Modified Rohan Score: 5 AM-PAC 6 Clicks Daily Activity Raw Score:: 7 TREATMENT / EDUCATION / INTERVENTIONS: While performing OT, Patient was instructed in:functional mobility training, self-care training, safety awareness/fall precautions , discharge planning, use of call light Presented to patient who demonstrates Fair understanding of instructions given. INFORMED CONSENT TO TREATMENT: Plan of care including recommended therapy, goals and frequency, discussed with patient who understands and agrees to proceed. ASSESSMENT: Functional performance limited due to: limited activities of daily living, pain, decreased functional mobility and decreased functional balance. Patient continues to benefit from skilled OccupationalTherapy to achieve the following functional goals. Short Term Goals: Goal Formation With patient Cognition: 2 step commands and 100% of the time Patient will increase orientation to time and situation Patient will perform grooming at edge of bed and with moderate assist Patient will transfer to bedside commode with moderate assist and X 2 Etl Bi Developer Goal(s): Patient to discharge to appropriate next level of inpatient care. Plan: Plan: ADL training Functional transfer training Functional balance training Safety awareness If patient is discharged from the facility, this note serves as a discharge summary if further occupational therapy visits did not occur. Refer to filed flowsheet for further details. Following therapy session, patient left in bed, with call light within reach, with Juani MARCIAL aware, turned to the R with pink wedges x2. * Twan Valenzuela, MALU - 10/16/2022 9:20 AM CDT [facility] Physical Medicine and Rehabilitation Swallow Treatment Patient: Esperanza Chaparro Med Record Number: [id number] Date of : 1955 Age: [age] year old PPE: PPE worn by staff: gloves;mask - procedural PPE worn by patient: gown - patient, clean;socks - clean Impressions: Patient's swallow function reassessed at bedside. Patient completed trial of ice chips, thin liquids and puree consistencies. Patient demonstrated delayed initiation, increased A-P transit and cough or throat clear with all trials. ST recommends NPO at this time with alternate source for nutrition and hydration. ST will follow patient to assess safety of swallow function while in hospital. Recommendations: Diet Liquids Recommendation: NPO Diet Solids Recommendation: NPO Recommended Form of Meds: NPO Recommended Tests/Consults: Recommendations: Dysphagia Treatment Discharge Recommendations: Speech therapy is recommended to improve swallow function. SUBJECTIVE: Patient Goals: No goals at this time Pain Assessment: Patient reports [place] 02/16; RN aware OBJECTIVE: Level of Consciousness: alert and drowsy Orientation Level: oriented to person Positioning: Upright in bed Respiratory Status: room air Swallow Trials: Ice chips: Presentation: Spoon-Assisted Oral: Delayed Initiation;Increased Anterior to Posterior Transit;Impaired Mastication Pharyngeal: Throat Clearing - Delayed Thin Liquid: Presentation: Straw-Assisted Oral: Delayed Initiation Pharyngeal: Throat Clearing - Delayed;Wet Vocal Quality;Cough - Delayed Puree: Presentation: Spoon-Assisted Oral: Delayed Initiation;Increased Anterior to Posterior Transit Pharyngeal: Throat Clearing - Delayed;Cough - Delayed Assessment: Risk For Aspiration: Moderate Primary Diagnostic Impression - Oral: Moderate Primary Diagnostic Impression - Pharyngeal: Moderate Treatment/Education/Interventions: While performing 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 Patient demonstrated Fair understanding of instructions given. Physician and Nurse contacted regarding results of treatment session. INFORMED CONSENT TO TREATMENT: Plan of care including recommended therapy, goals and frequency, discussed with patient who understands and agrees to proceed. Short Term Goals Patient will tolerate recommended food and liquid consistencies without clinical signs of aspiration., Patient will understand clinical signs of aspiration and aspiration precautions., Patient will follow recommended swallowing strategies. Prison Goal (s): Patient to be independent/baseline with functional mobility and self care and be able to safely discharge to prior level of care. Twan Zavala M.A., [facility]-CHEMISTRY PHYSICS TEACHER Speech Language Pathologist [phone] * Dee Taveras, PT - 10/16/2022 8:07 AM CDT [facility] Physical Medicine and Rehabilitation Physical Therapy Initial Evaluation Note Patient: Esperanza Chaparro [facility] Record Number: [id number] Date of : 1955 Age: [age] year old PPE worn by staff: gloves;mask - procedural PPE worn by patient: gown - patient, clean;socks - clean Co-eval with OT due to level of assist Recommendations: Discharge PT Discharge Recommendations: Patient would benefit from intensive 3-hour multidisciplinary therapy This recommendation is made due to ongoing intensive PT functional needs: motivated to participate in therapy;patient demonstrates a significant functional decline and would benefit from skilled therapy intervention to restore function In addition to the 1:1 evaluation of the patient, additional eval time was spent completing the chart review prior to the assessment, completing the multidisciplinary plan of care and education plan post evaluation and communicating results of the eval to other treatment team members. Nurse contacted regarding patient status and/or discharge plan. Physician Orders: Evaluation and Treat PRECAUTIONS: Weight Bearing Status: (No restrictions) Activity Level: Activity as Tolerated DIAGNOSIS: Patient Active Problem List: Hx of completed stroke DM2 (diabetes mellitus, type 2) ([facility]/HCC) Chronic low back pain Left leg weakness Primary hypertension Smoker Carotid occlusion, right Carotid stenosis, left Weakness Ischemic stroke ([facility]) Coronary artery disease JAMES (obstructive sleep apnea) COPD (chronic obstructive pulmonary disease) ([facility]) Stage 3 chronic kidney disease ([facility]) Peritonsillar abscess Dyspnea Respiratory acidosis Past Medical History: Diagnosis Date ??? Atherosclerosis of coronary artery ??? Chronic obstructive pulmonary disease (COPD) ([facility]HCC) ??? Essential hypertension ??? History of diabetes mellitus ??? MD (myocardial infarction) ([facility]/HCC) ??? Sleep apnea Pt states he was dx with sleep apnea, but cpap did not help ??? Snoring ??? SOB (shortness of breath) SUBJECTIVE: Subjective: My groin hurts PATIENT GOALS: Patient's Primary Concern: Increase strength Home Situation: Type of Residence: Private Residence Lives with:: Steps to Enter: 5 Home Structure: One Story Primary Bedroom: First Floor Primary Bathroom: First Floor Equipment at Home: Walker-4 Wheeled with Seat Prior Level of Functioning: Prior Level of Function Mobility: Ambulate-In Home ;With Assistive Device Fallen Within 6 Mos: 1 Have Help at Home?: Yes, there is help at home now Who assists you at home?: Friends/Family Oxygen at Home: No Vision: Corrected with glasses Pain Assessment: Pain Location #1 Pain Scale/Observation: Numeric (0-10) Pain Rating Score #1: 8 Pain Location : Groin Pain Intervention(s): (RN aware) OBJECTIVE: At start of therapy session, patient found in bed and with no alarm. General Appearance: 67 year old male laying in the bed, NAD LDAs: IV's: Peripheral line and external male catheter Edema: minimal edema noted in right lower extremity and minimal edema noted in left lower extremity Vitals: (*Assess the 3 levels of oxygen saturations both for room air and 02 unless rest on room air is 88% or less). Rest BP: 169/75 HR: 61 Sp02 91% Room Air Ex/Gait/Activity Without 02 BP: HR: 68 Sp02 93% Room Air Post Activity BP: HR: 60 Sp02 92% Room Air Observations: No signs of distress or patient c/o shortness of breath/dizziness during treatment. Mental Status/Cognition: Orientation Level: (Oriented to self, year, and hospital. Patient required cues for month with increased time answering all questions) Cognition: Judgement-decreased;Processing-delayed;Safety awareness- decreased;Follows one step commands Attention Span: Attends with cues to redirect Following Commands: Follows one step commands with increased time Safety Judgement: Decreased awareness of need for safety Awareness of Errors: Decreased awareness of deficits ROM: RLE: AROM WFL LLE: PROM WFL, no AROM noted Strength: RLE:4-/5 grossly LLE: 0/5 grossly Tone: RLE: no abnormal tone noted LLE: moderate Coordination: RLE: WNL LLE: impaired Sensation: RLE: no complaints of numbness or tingling LLE: no complaints of numbness or tingling Perception: Inattention/Neglect: Appears intact Visual/Motor Tracking: Able to track stimulus in all quads w/o difficulty Mobility: A gait belt and non-slip socks were used for all out of bed activity this date. Bed Mobility: Rolling: Maximal Assistance to Right;Maximal Assistance to Left Supine to Sit: Maximum Assistance;X 2 with HOB in semi-fowlers position Sit to Supine: Maximum Assistance;X 2 Transfers: Sit to Stand: Activity Does Not Occur (due to poor sitting balance) Gait: Weight Bearing Status: (No restrictions) Balance: Balance Scales/Tests Used: Sitting: Static/Dynamic;Standing: Static/Dynamic Sitting - Static: Poor (with strong left lateral lean with max cues to correct. Required cues for use of the right UE to assist with trunk support) Sitting - Dynamic: Poor ACTIVITY TOLERANCE: Patient's activity tolerance: poor plus TREATMENT/INTERVENTIONS: evaluation Modified Rohan: Current Modified Rohan Score: 5 AM-PAC 6 Clicks Mobility Raw Score:: 8 EDUCATION: While performing PT, Patient was instructed in:functional mobility training, safety awareness/fall precautions , discharge planning, use of call light Presented to patient who demonstrates Fair understanding of instructions given. INFORMED CONSENT TO TREATMENT: Plan of care including recommended therapy, goals and frequency, discussed with patient who understands and agrees to proceed. ASSESSMENT: Patient would benefit from additional Physical Therapy sessions to achieve the following functionalgoals to enhance independence. Short Term Goals: Goal Formation With patient Patient will perform bed mobility with maximal assist and X 1 Patient will transfer sit to/from stand with moderate assist and X 2 Patient will transfer bed to/from chair with moderate assist and X 2 Patient will demonstrate sitting balance of Poor plus x 10 minutes Etl Bi Developer Goal(s): Patient to be independent with functional mobility and self-care and should be able to safely discharge to prior level of care. Equipment Issued: gait belt Plan: Plan: Transfer training Bed mobility training Balance training Safety awareness If patient is discharged from the facility, this note serves as a discharge summary if further physical therapy visits did not occur. Refer to filed flowsheet for further details. Following therapy session, patient left in bed, with call light within reach, with Luanne MARCIAL aware, with therapy cues visible on white board. * David Elder MD - 10/16/2022 6:02 AM CDT Neurosurgery Progress Note Esperanza Chaparro 10/16/22 Hospital Day: 4 Subjective: Patient is a 67 year old male s/p R MCA stroke, consulted for hemicrane watch. Significant Events: NAEO. Stroke to start DAPT. Objective: T: 98.7 ??F (37.1 ??C) [Temp Min: 97.7 ??F (36.5 ??C) Max: 98.7 ??F (37.1 ??C)] BP: 174/78[BP Min: 141/62 Max: 178/78] MAP: 102[MAP (mmHg) Min: 95 Max: 122] HR: 62[Pulse Min: 48 Max: 67] RR: 20[Resp Min: 9 Max: 29] Sat: 91 %[SpO2 Min: 91 % Max: 99 %] ICP: [No data recorded] EVD: none Input/Output: 10/15 0701 - 10/16 0700 In: 1202.3 [I.V.:1202.3] Out: 1200 [Urine:1200] MONTSE/Other Drain: none Respiratory: PEEP/CPAP: 5 cm H20 Pressure Support: 5 cm H2O OBSERVED PEAK INSPIRATORY PRESSURE (cm H2O): 14 cm H2O SET TIDAL VOLUME (mL): 440 ML Spontaneous Tidal Volume (mL): 540 ML EXHALED TIDAL VOLUME (ml): 439 ml Labs: Recent Labs Component Name 10/16/22 0029 WBC 10.4 HGB 11.0* HCT 33.9* PLTCOUNT 179 Recent Labs Component Name 10/16/22 0029 NA 143 POTASSIUM 4.9* CO2 20* BUN 60* CREATININE 1.72* CALCIUM 8.7 GLUCOSE 151* Recent Labs Component Name 10/12/22202001/19/22 0948 12/11/21 1227 INR 1.1 - 1.0 PTT - - 35.2 - = values in this interval not displayed. Imaging: no new neuro imaging Diet: DIET NPO Except: NO EXCEPTIONS DIET TUBE FEEDING CONTINUOUS Fluids: Per primary MEDICATIONS FOR CURRENT ENCOUNTER: SCHEDULED MEDICATIONS: 0.9% NaCl injection 3 mL, Intracatheter, q8h 0.9% NaCl injection 3 mL, Intracatheter, q8h albuterol-ipratropium (Duo-Neb) nebulizer solution 3 mL, Inhalation, q6h ampicillin-sulbactam (Unasyn) 3 g in 0.9% NaCl IV 100 mL IVPB, Intravenous, q6h artificial tears ophthalmic ointment, Each Eye, q8h aspirin chew tablet 81 mg, Enteral Tube, QDAY budesonide (Pulmicort) nebulizer suspension 500 mcg, Inhalation, QDAY heparin injection 5,000 Units, Subcutaneous, q8h insulin glargine (Lantus) pen 20 Units, Subcutaneous, q24h insulin lispro (HumaLOG;ADMelog) 100 UNIT/ML pen 0-24 Units, Subcutaneous, q4h nicotine (Nicoderm CQ) patch 21 mg, Transdermal, QDAY perflutren lipid microsphere (Definity) injection 0.5 mL, Intravenous, intra- Procedure multiple polyethylene glycol 3350 (Miralax) packet 17 g, Enteral Tube, QDAY rosuvastatin (Crestor) tablet 40 mg, Enteral Tube, QDAY senna-docusate (Senokot-S) tablet 1 tablet, Enteral Tube, QDAY [COMPLETED] aspirin suppository 300 mg, Rectal, Once [COMPLETED] isolyte-S pH 7.4 bolus, Intravenous, Once [] lidocaine (Xylocaine) 4 % solution, Topical, Once CONTINUOUS MEDICATIONS: isolyte-S pH 7.4 infusion, Intravenous, Continuous PRN MEDICATIONS: Or Or 0.9% NaCl injection 1-10 mL, Intracatheter, PRN 0.9% NaCl injection 3 mL, Intracatheter, PRN acetaminophen (Tylenol) suppository 650 mg, Rectal, q4h PRN acetaminophen (Tylenol) tablet 650 mg, Oral, q6h PRN albuterol (Proventil;Ventolin) (2.5 MG/3ML) 0.083% nebulizer solution 2.5 mg, Inhalation, q6h PRN dextrose 10 % IV bolus, Intravenous, PRN dextrose 10 % IV bolus, Intravenous, PRN glucagon (Glucagen) injection 1 mg, Subcutaneous, PRN glucose (Diabetic Use) (Dex4 Glucose) oral liquid, Oral, PRN glucose (Diabetic Use) oral gel, Oral, PRN glucose chew tablet 4 tablet, Oral, PRN General: intubated Neuro: GCS 12 (E4V2M6), extubated, eyes open, Follows commands in RUE RLE, no motor LUE and LLE Assessment: 67 year old male s/p old R ICA stroke with new R MCA stroke consulted for hemicrane watch. Intubated for respiratory compromise, but following commands. Extubated 10/15. Repeat CT with slight increase in MLS. Plan: - Continue to monitor neurologic exam - Will hold off on surgery for now as exam is reassuring - Will continue to follow for christy watch - Overall care per stroke - Page Neurosurgery and obtain STAT head CT with decline in neuro exam Slava Palacios MD 6:02 AM 10/16/22 Staff note Patient seen and examined by me. Agree with above. Patient demonstrated improvement after initial presentation. Will sign off for now. Please call for neurologic decline. * Deonte Montero RN - 10/16/2022 1:38 AM CDT Problem: Nutrition Goal: Nutritional status is improving Outcome: Not Progressing Problem: Pain/Discomfort Goal: Patient exhibits reduced pain/discomfort as evidenced by pain scores Outcome: Progressing Goal: Patient uses pharmacological and non-pharmacological pain management strategies. Outcome: Progressing Goal: Patient verbalizes acceptable level of pain relief and ability to engage in desired activity. Outcome: Progressing Problem: Neurological Deficit Goal: Neurological status is stable or improving Outcome: Progressing Problem: Hemodynamic Status/Cardiac Output Goal: Patient has stable vital signs and fluid balance Outcome: Progressing Problem: Mobility Goal: Patient's mobility/activity will be maintained as optimum level for age, diagnosis and physical limitations Outcome: Progressing Problem: Communication Impairment/Dysarthria Goal: Ability to express needs and understand communication Outcome: Progressing * Twan Valenzuela SLP - 10/15/2022 3:15 PM CDT [facility] Physical Medicine and Rehabilitation Bedside Swallow Assessment Patient: Esperanza Chaparro Med Record Number: [id number] Date of : 1955 Age: [age] year old Patient Active Problem List: Hx of completed stroke DM2 (diabetes mellitus, type 2) ([facility]) Chronic low back pain Left leg weakness Primary hypertension Smoker Carotid occlusion, right Carotid stenosis, left Weakness Ischemic stroke ([facility]) Coronary artery disease JAMES (obstructive sleep apnea) COPD (chronic obstructive pulmonary disease) ([facility]) Stage 3 chronic kidney disease ([facility]) Peritonsillar abscess Dyspnea Respiratory acidosis Past Medical History: Diagnosis Date ??? Atherosclerosis of coronary artery ??? Chronic obstructive pulmonary disease (COPD) ([facility]) ??? Essential hypertension ??? History of diabetes mellitus ??? MD (myocardial infarction) ([facility]) ??? Sleep apnea Pt states he was dx with sleep apnea, but cpap did not help ??? Snoring ??? SOB (shortness of breath) In addition to the 1:1 evaluation of the patient, additional eval time was spent completing the chart review prior to the assessment, completing the multidisciplinary plan of care and education plan post evaluation and communicating results of the eval to other treatment team members. PPE: PPE worn by staff: gloves;mask - N95 PPE worn by patient: gown - patient, clean Impressions: Patient's swallow function assessed at bedside. Patient completed trial of ice chips, thin liquids and puree consistencies. Patient demonstrated delayed initiation, slow A-P transit and throat clear with a majority of trials. recommends NPO at this time. will continue to follow patient to assess safety of swallow function while in hospital. Recommendations: Diet Liquids Recommendation: NPO Diet Solids Recommendation: NPO Recommended Form of Meds: NPO Recommended Tests/Consults: Recommendations: Dysphagia Treatment Discharge Recommendations: Speech therapy is recommended to improve swallow function. SUBJECTIVE: Patient Goals: No goals at this time Pain Assessment: Patient does not report pain at this time OBJECTIVE: Level of Consciousness: alert and drowsy Orientation Level: oriented to person, oriented to place Positioning: Upright in bed Respiratory Status: nasal cannula: 4 lpm Oral/Motor: Dentition: Poor Oral Hygiene : Xerostomic (dry mouth) Labial/Facial: Impaired Tongue: Impaired Vocal Quality: Impaired Velopharyngeal Status: Within Functional Limits Oral Motor Coordination: Impaired Controls Secretions: Yes Swallow Trials: Ice chips: Presentation: Spoon-Assisted Oral: Delayed Initiation;Increased Anterior to Posterior Transit;Impaired Mastication Pharyngeal: Throat Clearing - Delayed Thin Liquid: Presentation: Straw-Assisted Oral: Delayed Initiation Pharyngeal: Throat Clearing - Delayed;Wet Vocal Quality Puree: Presentation: Spoon-Assisted Oral: Delayed Initiation;Increased Anterior to Posterior Transit Pharyngeal: Throat Clearing - Delayed Assessment: Risk For Aspiration: Moderate Primary Diagnostic Impression - Oral: Moderate Primary Diagnostic Impression - Pharyngeal: Moderate Education/Interventions: While performing 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 Patient demonstrated Poor understanding of instructions given. Physician and Nurse contacted regarding results of swallow evaluation and recommendations. INFORMED CONSENT TO TREATMENT: Plan of care including recommended therapy, goals and frequency, discussed with patient who understands and agrees to proceed. Short Term Goals Patient will tolerate recommended food and liquid consistencies without clinical signs of aspiration., Patient will understand clinical signs of aspiration and aspiration precautions., Patient will follow recommended swallowing strategies. Etl Bi Developer Goal (s): Patient to be independent/baseline with functional mobility and self care and be able to safely discharge to prior level of care. Twan Zavala M.A., DELANO-CHEMISTRY PHYSICS TEACHER Speech Language Pathologist [phone] * Jorge Hall MD - 10/15/2022 3:06 PM CDT The above note was reviewed. The patient was seen and examined. I would add the following: I saw and examined the patient with the resident and/or medical student and/or nurse practitioner. I have verified all details of the note and agree with his/her documentation with additions and modifications as listed in my separate note. Please refer to the resident's, medical student's, or nursepractitioner's note for plans of active problems not discussed in this note. 67M with hx of right ICA occlusion and R MCA infarction and peritonsillar abcess presented on 10/12 to the [place] ED for somnolence, left-sided hemiplegia and right- sided gaze deviation. Upon arrival to [facility] S/p TNK and intubation for respiratory distress. Angiogram 01/2022 showed R ICA occlusion. Admitted to ICU. MRI right MCA and SHEA cortical infarcts of the same acute age. Based on distribution and appearance of the acute lesions etiology is possibly flow failure given limited baseline supply through the collateral circulation (AComm and ECA) which could have happened in the context of the infection. Alternatively may consider proximal or distal stump syndrome given chronic ICA occlusion. Extubated on 10/14, tolerating well. - Currently on ASA; will start plavix when there's less potential for hemicrani - Maintain perfusion with SBP goals 130-160 - Continue Lipitor - ENT on board for the abscess - s/p abscess aspiration,on zosyn - TTE pending MEDICATIONS FOR CURRENT ENCOUNTER: SCHEDULED MEDICATIONS: 0.9% NaCl injection 3 mL, Intracatheter, q8h 0.9% NaCl injection 3 mL, Intracatheter, q8h albuterol-ipratropium (Duo-Neb) nebulizer solution 3 mL, Inhalation, q6h ampicillin-sulbactam (Unasyn) 3 g in 0.9% NaCl IV 100 mL IVPB, Intravenous, q6h artificial tears ophthalmic ointment, Each Eye, q8h aspirin chew tablet 81 mg, Enteral Tube, QDAY budesonide (Pulmicort) nebulizer suspension 500 mcg, Inhalation, QDAY heparin injection 5,000 Units, Subcutaneous, q8h insulin glargine (Lantus) pen 20 Units, Subcutaneous, q24h insulin lispro (HumaLOG;ADMelog) 100 UNIT/ML pen 0-24 Units, Subcutaneous, q4h lidocaine (Xylocaine) 4 % solution, Topical, Once nicotine (Nicoderm CQ) patch 21 mg, Transdermal, QDAY perflutren lipid microsphere (Definity) injection 0.5 mL, Intravenous, intra- Procedure multiple polyethylene glycol 3350 (Miralax) packet 17 g, Enteral Tube, QDAY rosuvastatin (Crestor) tablet 40 mg, Enteral Tube, QDAY senna-docusate (Senokot-S) tablet 1 tablet, Enteral Tube, QDAY [COMPLETED] dexAMETHasone (Decadron) injection 10 mg, Intravenous, Once [COMPLETED] isolyte-S pH 7.4 bolus, Intravenous, Once [] 0.9% NaCl injection 10 mL, Intracatheter, intra-Procedure multiple [] iopamidol (Isovue 370) 76 % contrast, Intravenous, Contrast - Once ?? [] iopamidol (Isovue 370) 76 % contrast, Intravenous, Contrast - Once ?? CONTINUOUS MEDICATIONS: PRN MEDICATIONS: Or Or 0.9% NaCl injection 1-10 mL, Intracatheter, PRN 0.9% NaCl injection 3 mL, Intracatheter, PRN acetaminophen (Tylenol) suppository 650 mg, Rectal, q4h PRN acetaminophen (Tylenol) tablet 650 mg, Oral, q6h PRN albuterol (Proventil;Ventolin) (2.5 MG/3ML) 0.083% nebulizer solution 2.5 mg, Inhalation, q6h PRN dextrose 10 % IV bolus, Intravenous, PRN dextrose 10 % IV bolus, Intravenous, PRN glucagon (Glucagen) injection 1 mg, Subcutaneous, PRN glucose (Diabetic Use) (Dex4 Glucose) oral liquid, Oral, PRN glucose (Diabetic Use) oral gel, Oral, PRN ?? glucose chew tablet 4 tablet, Oral, PRN Patient Vitals for the past 24 hrs: Temp Pulse Resp BP 10/15/22 1500 -- 50 16 162/70 10/15/22 1400 97.8 ??F (36.6 ??C) 66 16 168/73 10/15/22 1300 -- 62 13 158/67 10/15/22 1200 98.3 ??F (36.8 ??C) 49 16 141/62 10/15/22 1100 -- 51 16 147/62 10/15/22 1000 98 ??F (36.7 ??C) 49 17 149/67 10/15/22 0900 -- 54 19 146/66 10/15/22 0800 98.2 ??F (36.8 ??C) 57 19 161/69 10/15/22 0700 -- 59 17 154/63 10/15/22 0600 -- 61 19 141/67 10/15/22 0513 -- 50 17 -- 10/15/22 0500 -- 51 18 152/70 10/15/22 0405 -- 60 19 164/76 10/15/22 0400 97.5 ??F (36.4 ??C) 69 19 166/79 10/15/22 0300 -- 66 18 164/76 10/15/22 0200 97.5 ??F (36.4 ??C) 56 17 147/72 10/15/22 0100 -- 64 18 154/70 10/15/22 0011 -- 50 -- -- 10/15/22 0000 98 ??F (36.7 ??C) 74 21 152/74 10/14/22 2316 -- 50 18 -- 10/14/22 2300 -- 55 10 138/62 10/14/22 2200 -- 52 9 143/59 10/14/22 2100 -- 51 17 141/65 10/14/22 2000 98.2 ??F (36.8 ??C) 51 14 141/72 10/14/22 1946 -- 54 -- -- 10/14/22 1900 -- 54 9 137/62 10/14/22 1800 97.7 ??F (36.5 ??C) 57 17 157/67 10/14/22 1700 -- 61 20 130/52 10/14/22 1600 97.5 ??F (36.4 ??C) 59 16 133/58 Intake/Output Summary (Last 24 hours) at 10/15/2022 1506 Last data filed at 10/15/2022 1000 Gross per 24 hour Intake 1268.74 ml Output 600 ml Net 668.74 ml Labs: Recent Labs Component Name 10/14/22 0118 10/13/228 12/12/21 0205 CHOL - 148 188 TRIG 200* 117 216* HDL - 40* 33* LDLCALC - 85 112* Recent Labs Component Name 10/12/22223012/11/21 1227 HGBA1C 7.7* 7.1* Recent Labs Component Name 10/14/22235610/14/2211710/12/22235210/12/22202210/12/222020 NA 138 137 137 137 135* POTASSIUM 4.8* 5.2* 5.1* 3.3* 5.2* CL 112* 114* 110* 120* 109* CO2 18* 16* 18* 13* 16* BUN 63* 52* 34* 27* 34* CREATININE 2.16* 2.04* 1.40* 0.91 1.36* CALCIUM 8.8 8.8 9.4 5.8* 9.1 MAGNESIUM 2.6 2.7* 1.9 - 1.8 PHOS 3.7 4.6 3.5 - 2.8 Recent Labs Component Name 10/14/22 2357 10/14/22 0118 10/13/22 0535 10/12/22 2353 01/19/22 0948 WBC 10.5 11.5* 15.1* 22.0* 8.5 HGB 10.9* 11.3* 11.8* 13.4 12.7 HCT 33.2* 35.0* 35.4 41.3 38.6 PLTCOUNT 174 174 - 237 237 RBC 3.72* 3.86* 4.01* 4.62 4.50 Recent Labs Component Name 10/12/22 20201/19/22 0948 12/11/21 1227 PT 13.8 12.4 13.0 INR 1.1 0.9 1.0 PTT - - 35.2 Recent Labs Component Name 10/13/22 0535 10/13/22 0228 10/12/22 2353 PH 7.31* 7.28* 7.12* PCO2 37 40 62* PO2 134* 115* 59* FIO2 50.0 50.0 100.0 Patient Vitals for the past 24 hrs: Glucose Bedside (mg/dL) 10/14/222025 226 mg/dL 10/14/229 225 mg/dL 10/15/22 0415 236 mg/dL Micro: Microbiology Results (Displays last 21 days for this encounter ONLY) No results found for the last 504 hours. Length of stay: 3 Problem List Ischemic stroke ([facility]) (POA: Yes) Carotid occlusion, right (POA: Yes) Carotid stenosis, left (POA: Yes) Weakness (POA: Unknown) Coronary artery disease (POA: No) JAMES (obstructive sleep apnea) (POA: Yes) COPD (chronic obstructive pulmonary disease) ([facility]) (POA: Unknown) Stage 3 chronic kidney disease ([facility]) (POA: Unknown) Peritonsillar abscess (POA: Yes) Dyspnea (POA: Yes) Respiratory acidosis (POA: Yes) Hx of completed stroke (POA: Yes) DM2 (diabetes mellitus, type 2) ([facility]) (POA: Yes) Primary hypertension (POA: Yes) Smoker (POA: Yes) Present on Admission: ??? Ischemic stroke (CMS/HCC) ??? DM2 (diabetes mellitus, type 2) (CMS/HCC) ??? Hx of completed stroke ??? Primary hypertension ??? Smoker ??? Carotid occlusion, right ??? Carotid stenosis, left ??? JAMES (obstructive sleep apnea) ??? Peritonsillar abscess ??? Dyspnea ??? Respiratory acidosis Routine multidisciplinary rounds were completed today with the presence of the primary team staff, residents, PT/OT/CHEMISTRY PHYSICS TEACHER and CM/SW. Jorge Hall MD Vascular and Interventional Neurology * Elida Chance RN - 10/15/2022 2:36 PM CDT Problem: Tobacco Use Goal: Inpatient tobacco-use cessation counseling participation Outcome: Progressing Problem: Pain/Discomfort Goal: Patient exhibits reduced pain/discomfort as evidenced by pain scores Outcome: Progressing Goal: Patient uses pharmacological and non-pharmacological pain management strategies. Outcome: Progressing Goal: Patient verbalizes acceptable level of pain relief and ability to engage in desired activity. Outcome: Progressing Problem: Safety related to restraint use Goal: Absence of injury while restrained Outcome: Progressing Problem: Neurological Deficit Goal: Neurological status is stable or improving Outcome: Progressing Problem: Hemodynamic Status/Cardiac Output Goal: Patient has stable vital signs and fluid balance Outcome: Progressing Problem: Oxygenation/Respiratory Function Goal: Respiratory rate/effort will be within specified limits Outcome: Progressing Problem: Mobility Goal: Patient's mobility/activity will be maintained as optimum level for age, diagnosis and physical limitations Outcome: Progressing Goal: Continuum of care needs are further met through referral to outpatient services when appropriate. Outcome: Progressing Goal: Patient reports the ability to perform Activities of Daily Living. Outcome: Progressing Problem: Communication Impairment/Dysarthria Goal: Ability to express needs and understand communication Outcome: Progressing Problem: Nutrition Goal: Nutritional status is improving Outcome: Progressing Problem: Aspiration Precautions Goal: Patient's risk of aspiration is minimized Outcome: Progressing Problem: Glycemic Control Goal: Clinical indication of glycemia balance is achieved Outcome: Progressing Problem: Knowledge Deficit,Education,Discharge Plan Goal: The patient/family will understand cerebrovascular disease and its symptoms, treatment and management Outcome: Progressing Problem: Skin Integrity Goal: Skin integrity is maintained or improved Outcome: Progressing Problem: Fall Risk Goal: Fall risk and fall related injury risk are minimized (interventions related to the fall risk can be found in the flowsheet documentation) Outcome: Progressing Problem: Nutrient: Inadequate protein-energy intake Goal: Total intake will meet estimated nutrient needs Outcome: Progressing * Fito Hawkins MD - 10/15/2022 1:06 PM CDT Stroke Service Daily Progress Note Esperanza Chaparro Age: [age] year old Date of : 1955 Date of Admission: 10/12/2022 Hospital Day: 3 67 yo M hx of right ICA occlusion and R MCA infarction and peritonsillar abscess presented to [place] ED10/12 with somnolence, Left-sided hemiplegia, and right sided gaze deviation. S/p tnk at [facility] and intubated due to respiratory distress. Angiogram on 01/2022 shows R ICA occlusion. Admitted to NeuroICU. MRI with right MCA and SHEA cortical infarcts of the same acute age. 10/15: EEG with no epileptiform discharges. Patient extubated successfully this AM Subjective Interval History: See above. Objective Patient Vitals for the past 24 hrs: BP Temp Temp src Pulse Resp SpO2 10/15/22 1200 -- 98.3 ??F (36.8 ??C) Oral -- -- -- 10/15/22 1100 147/62 -- -- 51 16 96 % 10/15/22 1000 149/67 98 ??F (36.7 ??C) Axillary 49 17 98 % 10/15/22 0900 146/66 -- -- 54 19 97 % 10/15/22 0800 161/69 98.2 ??F (36.8 ??C) Axillary 57 19 98 % 10/15/22 0700 154/63 -- -- 59 17 97 % 10/15/22 0600 141/67 -- Axillary 61 19 95 % 10/15/22 0513 -- -- -- 50 17 98 % 10/15/22 0500 152/70 -- -- 51 18 98 % 06/08/23 0405 164/76 -- -- 60 19 97 % 10/15/22 0400 166/79 97.5 ??F (36.4 ??C) Axillary 69 19 98 % 10/15/22 0300 164/76 -- -- 66 18 98 % 10/15/22 0200 147/72 97.5 ??F (36.4 ??C) Axillary 56 17 97 % 10/15/22 0100 154/70 -- -- 64 18 96 % 10/15/22 0011 -- -- -- 50 -- 98 % 10/15/22 0000 152/74 98 ??F (36.7 ??C) Axillary 74 21 94 % 10/14/22 2316 -- -- -- 50 18 97 % 10/14/22 2300 138/62 -- -- 55 10 95 % 10/14/22 2200 143/59 -- -- 52 9 96 % 10/14/22 2100 141/65 -- -- 51 17 98 % 10/14/22 2000 141/72 98.2 ??F (36.8 ??C) Axillary 51 14 98 % 10/14/22 1946 -- -- -- 54 -- 98 % 10/14/22 1900 137/62 -- -- 54 9 97 % 10/14/22 1800 157/67 97.7 ??F (36.5 ??C) Axillary 57 17 96 % 10/14/22 1700 130/52 -- -- 61 20 95 % 10/14/22 1600 133/58 97.5 ??F (36.4 ??C) Axillary 59 16 95 % 10/14/22 1500 139/69 -- -- 57 15 97 % 10/14/22 1400 142/70 97.8 ??F (36.6 ??C) Axillary 63 15 95 % Intake/Output Summary (Last 24 hours) at 10/15/2022 1307 Last data filed at 10/15/2022 1000 Gross per 24 hour Intake 1268.74 ml Output 1350 ml Net -81.26 ml Exam: Patient intubated sedated on propofol Pupils reactive Corneal, Cough, and Gag reflex in tact Opens eyes to loud voice Able to follow basic commands Spontaneous movement of R arm and leg Labs: Recent Labs Component Name 10/14/22235610/14/22 0118 10/13/22 0535 WBC 10.5 11.5* 15.1* RBC 3.72* 3.86* 4.01* HGB 10.9* 11.3* 11.8* HCT 33.2* 35.0* 35.4 Recent Labs Component Name 10/14/22235610/14/22 0118 10/12/22 2353 NA 138 137 137 CL 112* 114* 110* CO2 18* 16* 18* BUN 63* 52* 34* CREATININE 2.16* 2.04* 1.40* CALCIUM 8.8 8.8 9.4 No results for input(s): MG in the last 76428 hours. Recent Labs Component Name 10/14/22235610/14/22 0118 10/12/22 235 PHOS 3.7 4.6 3.5 Recent Labs Component Name 10/12/22202001/19/22 0948 12/11/21 1227 PT 13.8 12.4 13.0 INR 1.1 0.9 1.0 PTT - - 35.2 No results for input(s): A1C in the last 74036 hours. Recent Labs Component Name 10/14/22 0118 10/13/22 0228 12/12/21 0205 CHOL - 148 188 HDL - 40* 33* LDLCALC - 85 112* TRIG 200* 117 216* No results for input(s): TSH in the last 11686 hours. Invalid input(s): FT4, TOTT3 Recent Labs Component Name 12/13/21 0301 12/12/21 1229 12/12/21 0205 TROPONINI 0.046* 0.039* 0.042* ECHO TRANSTHORACIC W BUBBLE STUDY Result Date: 10/15/2022 ??? Left??Ventricle: Left ventricle is mildly dilated. Normal systolic function. EF by 2D Ayala biplane is 61%. Regional wall motion abnormalities present. See diagram for wall motion findings. Normal diastolic function. ??? Left??Atrium: No interatrial septum shunt present viewable with agitatedsaline. CT HEAD WO CONTRAST Result Date: 10/14/2022 PROCEDURE: CT HEAD WO CONTRAST DATE/TIME OF EXAM: 10/14/2022 10:36 AM CLINICAL INFORMATION: None relevant/not provided if blank. Indication: R53.1: Weakness Additional History: COMPARISON: MRI brain 10/14/2022, CT head 10/13/2022 TECHNIQUE: Noncontrast CT brain was performed utilizing standard protocol. CT dose reduction technique was used, including Automated Exposure Control. FINDINGS: Interval increase in the confluent hypodensity involving the right frontal parietal and temporal lobes right MCA territory and also in the right SHEA territory consistent with known acute evolving infarct. There is localized mass effect with effacement of the sulci. No significant midline shift. Chronic infarct inthe right occipital lobe. Previously noted minimal petechial hemorrhages on MRI are not conspicuouson this study could be secondary to technique. Minimal mass effect on the right lateral ventricle. Mild interval decrease in the caliber of right lateral ventricle compared to the prior study. Mild interval decrease in the caliber of ventricles compared to prior study could be secondary to edema. For example third ventricle previously measured 8 mm now measures about 6 mm. Basilar cisterns are patent. No evidence of transtentorial or tonsillar herniation. Redemonstration of expansile lesion invo lving the the clivus No interval change in the expansile soft tissue lesion along the left lateral aspect of the sella with the thinning of the bone, unchanged compared to study from 12/11/2021 with the T2 hyperintensity on MRIs could be secondary to benign lesions like mucoceles however no postcontrast imaging is available for accurate characterization. Otherwise no acute osseous abnormality. Bilateral cataract replacement. IMPRESSION: 1. Redemonstration of large confluent evolving acute infarction in the right MCA territory and right SHEA territory involving most of the right cerebral hemisphere with local mass effect. No significant midline shift or evidence of herniation. No large hematoma however minimal petechial hemorrhages cannot be excluded. > Interpreting Provider: Re Sage MD on 10/14/2022 4:40 PM MRI BRAIN WO CONTRAST Result Date: 10/14/2022 PROCEDURE: MRI BRAIN WO CONTRAST, DATE/TIME OF EXAM: 10/14/2022 12:00 AM, LOCATION [facility] INDICATION: R53.1: Weakness ADDITIONAL CLINICAL INFORMATION: Ordering Provider Reason ForExam: Acute ischemic stroke EXAMINATION: Magnetic resonance imaging [...] basal ganglia, including putamen and caudate nuclei. Thisbelong to the right SHEA and MCA territory. [...] Encephalomalacia/gliosis is seen in the region of rightsuperior frontal lobe (series 9 image 19) and right temporoparietal region (series 9 image 10). Thecorpus callosum and sella appear normal. The posterior fossa, brainstem, and craniocervical junction appear normal. Other than bilateral cataract extractions, the visualized portions of the orbits appear grossly unremarkable. There is mild paranasal sinus disease. There is mild opacification in themastoid air cells, left more than right. The patient is intubated. Fluid and retained secretions inthe nasopharynx. The calvarium and visualized cervical spine [...] verification. Report dictated by Miguel Escamilla MD (residential tech) ISundar MD have personally reviewed and interpreted this examination/study. > Interpreting Provider: Sundar Devine MD on 10/14/2022 1:12 PM XR ABDOMEN KUB PORTABLE Result Date: 10/14/2022 PROCEDURE: XR ABDOMEN KUB PORTABLE, DATE/TIME OF EXAM: 10/13/2022 10:23 PM, LOCATION [facility] INDICATION: R13.10: Dysphagia, unspecified type ADDITIONAL CLINICAL INFORMATION: Ordering Provider Reason For Exam: OG tube placement COMPARISON: Abdominal radiograph 10/13/2022 at 10:52 AM FINDINGS/IMPRESSION: Enteric tube courses below the diaphragm with the distal tip superimposing thegastric body. Partially imaged colonic gaseous distention, increased from the prior exam. Report dictated by Oscar Santizo MD (residential tech). I, CEDRIC FLORES MD have personally reviewedand interpreted this examination/study. > Interpreting Provider: CEDRIC FLORES MD on 10/14/2022 7:[address] HEAD NON CONTRAST Result Date: 10/13/2022 EXAM: CT HEAD WO CONTRAST, DATE/TIME OF EXAM: 10/13/2022 8:29 PM, LOCATION: [facility] HISTORY: R53.1: Weakness ADDITIONAL CLINICAL INFORMATION: Ordering Provider Reason For Exam: Post tPa imaging EXAMINATION: CT scan of the head without intravenous contrast TECHNIQUE: CT of the head was performed without intravenous contrast according to standard protocol. CT dose reduction technique was used, including Automated Exposure Control. COMPARISON: Head CTs 10/13/2022 at 1:07 AM and 10/12/2022. FINDINGS: See impression. IMPRESSION: 1.Further increased conspicuity of large areas of hypoattenuation with loss of goldman-white differentiation involving the right frontal, parietal, and temporal lobes in addition to the right insula, which is consistent with an evolving large acute infarct corresponding to the right middlecerebral artery (MCA) vascular territory. 2.Further increased conspicuity of a moderately-size areaof hypoattenuation with loss of goldman-white differentiation along the parasagittal right frontal lobe, consistent with an evolving large acute infarct corresponding to the right anterior cerebral artery (SHEA) vascular territory. 3.No evidence of hemorrhagic conversion, significant midline shift, brain herniation, or evidence of hydrocephalus. 4.Please refer to recently reported head CTs 10/12/2022 and 10/12/2022 for description of additional chronic findings. Results of this exam were verbally discussed by Dr. Zelda Willams with Dr. Brannon on 10/13/2022 at 9:02 PM for a Critical Stroke Protocol withreadback confirmation and verification. The images were reviewed by attending physician Dr. Zelda Willams prior to this communication. > Interpreting Provider: Zelda Willams MD, PhD on 10/13/2022 9:09 PM XR CHEST 1VW PORTABLE Result Date: 10/13/2022 PROCEDURE: XR CHEST 1VW PORTABLE, DATE/TIME OF EXAM: 10/13/2022 1:53 AM, LOCATION [facility] INDICATION: R06.00: Dyspnea, unspecified type ADDITIONAL CLINICAL INFORMATION: Ordering Provider Reason For Exam: ETT position COMPARISON: Chest x-ray 10/13/2022. FINDINGS/IMPRESSION: Endotracheal tube terminates at the level of thoracic inlet/mid thoracic trachea, approximately 7 cm above the cathi. A loop recorder superimposes the left chest. There is minimal basilar atelectasis. There is no focal consolidation, pleural effusion, or pneumothorax. The heart size is normal and mediastinal contours are normal. > Dictated by Noe Bravo MD (residential tech). Wen Orourke MD have personally reviewed and interpreted this examination/study. > Interpreting Provider: Wen Lee MD on 10/13/2022 2:16 PM XR CHEST 1VW PORTABLE Result Date: 10/13/2022 EXAMINATION: XR CHEST 1VW PORTABLE HISTORY: E87.29: Respiratory acidosis COMPARISON: Chest radiograph 10/13/2022 at 1:46 AM FINDINGS/IMPRESSION: Lines: *Endotracheal tube terminates within the mid thoracic trachea. *A loop recorder is partially visualized superimposing the left chest. Aside from mildbibasilar atelectasis, there is no confluent consolidation. No pleural effusion is seen. No pneumothorax is identified. The cardiac silhouette is within normal limits. Aortic atherosclerosis is noted. The superior mediastinal contours are within normal limits. No acute osseous abnormality is identified. Report dictated by Oscar Santizo M.D. (residential tech) 10/13/2022 7:05 AM CEDRIC Orourke MD have personally reviewed and interpreted this examination/study. > Interpreting Provider: CEDRIC FLORES MD on 10/13/2022 2:14 PM XR ABDOMEN KUB PORTABLE Result Date: 10/13/2022 PROCEDURE: XR ABDOMEN KUB PORTABLE, DATE/TIME OF EXAM: 10/13/2022 11:01 AM, LOCATION [facility] INDICATION: R53.1: Weakness ADDITIONAL CLINICAL INFORMATION: Ordering Provider Reason For Exam: MRI COMPARISON: None. TECHNIQUE: Supine frontal radiograph of the abdomen. FINDINGS: A looprecorder overlies the left axilla. No evidence of retained metallic density foreign bodies within the abdomen. The urinary bladder is opacified with contrast material. Moderate gas and stool are present. There are no findings to suggest bowel obstruction, free intraperitoneal gas or pneumatosis. Noabnormal calcifications are seen. No bone abnormality is seen. IMPRESSION: 1.A loop recorder overlies the left axilla. No evidence of retained metallic density foreign bodies within the abdomen. 2.Nonobstructive bowel gas pattern. Report dictated by Oscar Santizo M.D. (residential tech) 10/13/2022 11:03 AM Adiel Orourke MD have personally reviewed and interpreted this examination/study. > Interpreting Provider: Adiel Lynn MD on 10/13/2022 1:03 PM XR CHEST 1VW PORTABLE Result Date: 10/13/2022 EXAMINATION: XR CHEST 1VW PORTABLE HISTORY: R06.00: Dyspnea, unspecified type E87.29: Respiratory acidosis COMPARISON: Chest radiograph 10/12/2022 FINDINGS/IMPRESSION: Lines: *Interval insertion of endotracheal tube which terminates in the proximal thoracic trachea, 6 cm from the cathi. *A loop recor manish superimposes the left chest. No confluent consolidation is noted. No pleural effusion is seen. No pneumothorax is identified. The heart is borderline enlarged. Aortic atherosclerosis is noted. The superior mediastinal contours are within normal limits. No acute osseous abnormality is identified. Report dictated by Oscar Santizo M.D. (residential tech) 10/13/2022 7:05 AM Adiel Orourke MD have personally reviewed and interpreted this examination/study. > Interpreting Provider: Adiel Lynn MD on 10/13/2022 11:[address] NECK SOFT TISSUE W CONT Result Date: 10/13/2022 PROCEDURE: CT NECK SOFT TISSUE W CONT, DATE/TIME OF EXAM: 10/13/2022 1:29 AM, LOCATION [facility] INDICATION: R06.00: Dyspnea, unspecified type ADDITIONAL CLINICAL INFORMATION: Ordering Provider Reason For Exam: Peritonsillar abscess Technologist Note: None. Additional: Per chart review, patient was difficult to intubate and multiple attempts were required. CONTRAST: IOPAMIDOL 76 % IV SOLN:75 mL EXAMINATION: Computed tomography (CT) of the neck with contrast TECHNIQUE: CT of theneck was performed following the uneventful administration of 75 mL Isovue-370 contrast according to standard protocol. CT dose reduction technique was used, including Automated Exposure Control. COMP ARISON: CT angiogram of the neck performed 10/30 [...] kenneth bullosa.. Paraseptal emphysema and lung scarring. IMPRESSION: 1.Findings concerning for right peritonsillar abscess with associated diffuse pharyngitis and extensive laryngeal edema, extending to the level of the supraglottic larynx, resulting in airway compromise status post endotracheal intubation. Preliminary findings were discussed with the patient's care provider, Dr. Brannon by Dr. Cleveland via telephone at 0248 on 10/13/2022 with readback comprehension and verification. > Dictated by Dean Cleveland M.D. (residential tech) Sundar Orourke MD have personally reviewed and interpreted this examination/study. > Interpreting Provider: Sundar Devine MD on 10/13/2022 10:[address] HEAD WO CONTRAST Result Date: 10/13/2022 PROCEDURE: CT HEAD WO CONTRAST, DATE/TIME OF EXAM: 10/13/2022 1:26 AM, LOCATION [facility] INDICATION: I63.9: Ischemic stroke (CMS/HCC) EXAMINATION: Computed tomography (CT) of the head without contrast ADDITIONAL CLINICAL INFORMATION: Ordering Provider Reason For Exam: Acute respiratory distress. R/o central causes Technologist Note: None. Additional: None. TECHNIQUE: CT of the head was performed without contrast according to standard protocol. CT dose reduction technique was used, including Automated Exposure Control. COMPARISON: CT of the head from 10/12/2022. FINDINGS: No acute intra- or extra-axial fluid collections are identified. There is mild cerebral volume loss with associated ex vacuo ventricular dilatation. The basilar cisterns are patent. No significant mass effect or midline shift is seen. There has been interval mild diffuse but subtle hypoattenuation and loss of orozco-white matter differentiation involving larger portions of the right frontal and right temp oral lobes as well as the right insula, and possibly posterior lateral temporal lobes which could represent acute evolving acute right MCA territory infarcts. MRI of the brain is recommended for further evaluation. Additional subtle hypoattenuation along the parasagittal right frontal lobe is also noted. Redemonstration of chronic infarcts with areas of encephalomalacia and gliosis in the right frontal and right parietal as well as the right occipital lobes compatible with chronic right MCA, SHEA, and BOARD MEMBER territory infarcts. Additional tiny lacunar infarcts in the bilateral cerebellar hemispheres are again noted. Periventricular white matter hypoattenuation is indicative of chronic small vess el ischemic disease. There is vascular calcification of the carotid siphons. No acute calvarial fracture is identified. Other than bilateral cataract extractions, the orbits appear normal. There is mild paranasal sinus disease. Opacification of the nasal passages and the nasopharynx. The patient is intubated. The mastoid air cells are grossly clear. Calcific densities along the left frontal scalpare again noted. No soft tissue abnormality is otherwise identified. IMPRESSION: 1.Suggestion of interval diffuse edema in the right MCA territory concerning for evolving right MCA territory ischemia. MRI of the brain is recommended for further evaluation.. 2.Additional chronic findings as outlined above. Results of this exam were communicated with closed loop confirmation to Dr. Mendenhall by Dr. Devine on 10/13/2022 at 9:54 AM with read back compression and verification. Report dictated by Romain Mckee MD, PhD (residential tech). I, Sundar Devine MD have personally reviewed and interpreted this examination/study. > Interpreting Provider: Sundar Devine MD on 10/13/2022 10:21 AM XR CHEST 1VW PORTABLE Result Date: 10/13/2022 EXAMINATION: XR CHEST 1VW PORTABLE HISTORY: R53.1: Weakness COMPARISON: Chest radiograph dated 12/11/2021 FINDINGS/IMPRESSION: Lines: *A loop recorder superimposes the left chest. No confluent consolidation is noted. No pleural effusion is seen. No pneumothorax is identified. The heart is enlarged for this AP view. Aortic atherosclerosis is noted. The superior mediastinal contours are within normallimits. No acute osseous abnormality is identified. No free air is seen under the diaphragm. > Interpreting Provider: CEDRIC FLORES MD on 10/13/2022 6:[address] ANGIO BRAIN NECK STROKE Result Date: 10/12/2022 EXAM: CT ANGIO BRAIN NECK STROKE, DATE/TIME OF EXAM: 10/12/2022 7:42 PM, LOCATION: [facility] HISTORY: Code Stroke EXAMINATION: CT angiogram images [...] right middle cerebral artery (MCA) via the miami of Arvizu/patent anterior communicating artery. Diminished opacification of the right MCA M1 segment and distal branches with notable markedly diminutive opacification versus nonopacification of the MCA M3 segment and beyond. No occlusion or hemodynamical ly significant stenosis elsewhere of the major intracranial arteries. Patent intracranial left ICA,left MCA, bilateral ACAs, vertebral artery V4 segments, [...] ARTERIES: No occlusion or hemodynamically significant stenosis. Noevidence of dissection. OTHER: Partially imaged lung apices [...] the right SHEA and MCA via the miami of Arvizu. Diminished opacification of the right [...] communication. Report dictated by Gilbert Morrow MD (residential tech). I, Zelda Willams MD, PhD have personally reviewed and interpreted this examination/study. > Interpreting Provider: Zelda Willams MD, PhD on 10/12/2022 8:[address] BRAIN - Stroke Result Date: 10/12/2022 EXAM: CT BRAIN STROKE, DATE/TIME OF EXAM: 10/12/2022 7:32 PM, LOCATION: [facility] HISTORY: Code Stroke EXAMINATION: CT scan of [...] PARENCHYMA: No acute parenchymal hemorrhage. Apparent hypodensity ofthe right anterior temporal lobe and insular region, which is nonspecific and may be attributable to motion artifact or possibly representing areas of evolving acute infarct. No mass effect, midline shift, or brain herniation. Re-demonstrated areas of encephalomalacia involving the right frontal and right parietal lobes, consistent with chronic infarcts involving the right middle cerebral artery ( MCA) vascular territory and right anterior cerebral artery (SHEA)/MCA watershed territory. Re-demonstrated area of encephalomalacia involving the right occipital lobe, consistent with a chronic infarct involving the right posterior cerebral artery (BOARD MEMBER) vascular territory. Multiple small chronic lacunes of [...] tissues. Mildly expansile soft tissue lesion of [id number] of the sella turcica measuring 2.1 x 1.6 cm (09/03), which is associated with thinning of thedorsum sellae and is incompletely assessed on this [...] infarct. Recommend follow-up brain MRI without contrast forfurther evaluation. 3.Multiple chronic infarcts of the right cerebral hemisphere and multiple smallchronic lacunes of the left greater than right cerebellar hemispheres as described. 4.Mildly expansile soft tissue lesion of the mid-to-left aspect of the sella turcica measuring 2.1 x 1.6 cm, which is associated with thinning of the dorsum sellae and is incompletely assessed on this examination. Recommend follow-up sella MRI without and with contrast. Results of this exam were verbally discussedby Dr. Zelda Willams with Dr. Brannon on 10/12/2022 at 7:44 PM for a Critical Stroke Protocol with readback confirmation and verification. The images were reviewed by attending physician Dr. Zelda Willamsprior to this communication. > Interpreting Provider: Zelda Willams MD, PhD on 10/12/2022 8:20 PM Ischemic stroke (CMS/HCC) (POA: Yes) Carotid occlusion, right (POA: Yes) Carotid stenosis, left (POA: Yes) Weakness (POA: Unknown) Coronary artery disease (POA: No) JAMES (obstructive sleep apnea) (POA: Yes) COPD (chronic obstructive pulmonary disease) (CMS/HCC) (POA: Unknown) Stage 3 chronic kidney disease (CMS/HCC) (POA: Unknown) Peritonsillar abscess (POA: Yes) Dyspnea (POA: Yes) Respiratory acidosis (POA: Yes) Hx of completed stroke (POA: Yes) DM2 (diabetes mellitus, type 2) (CMS/HCC) (POA: Yes) Primary hypertension (POA: Yes) Smoker (POA: Yes) Assessment Esperanza Chaparro is a 67 year old male presenting 10/12 from [place] for left sided hemiparesis and aphasia. CTH with acute on chronic infarcts. CTA with chronic right ICA complete occlusion identified on Cerebral Angiogram in 01/2022. S/p TNK but MT not pursued due to low ASPECT score. MRI with right frontal, parietal, and temporal lobes consistent with known infarct in right MCA and SHEA territories with no hemorrhagic transformation. Mechanism is large artery. Flow failure possible given distribution and appearance of lesions on MRI, and also in the setting of infection which was being treated at [place].Proximal or distal stump syndrome can also be considered but less likely given both MCA and SHEA involvement. Stroke Type: Ischemic Stroke Mechanism: Large Artery: Flow failure vs. Carotid stump styndrome Plan R SHEA/MCA Territory Infarctions Chronic R ICA occlusion - Stroke workup complete - On aspirin 81 mg, Atorvastain 80 mg for secondary prevention - Will switch to DAPT tomorrow 10/16 - If patient has future ischemic vascular injury, can consider switching to anticoagulation with Single antiplatelet therapy. - Disposition acute rehab. Blood Pressure Goals: SBP: 130-160 Core Measures tPA administration: yes Anti-thrombotic: Aspirin 81 mg Statin: Atorvastatin 80 mg DVT prophylaxis: Subcutaneous heparin Swallow Evaluation: pending PT/OT Evaluation: pending Smoking cessation; will cancer genetic counselor: pending Individual Modifiable Risk Factors Hypertension: yes Hyperlipidemia: yes Diabetes: yes Atrial Fibrillation: no Tobacco: no Diabetes plan of care based on A1c: Patient's A1c is equal to or greater than 6.5%. For patients with diabetes (A1c >6.5%), SGLT-2 inhibitors or GLP-1 receptor agonists have been shown to reduce major adverse cardiovascular events. These medications require close follow up with PCP or yarn spinner and lab monitoring. Due to this reason, we have deferred treatment until outpatient follow up. Facility Manager Histology should be consulted to provide patient education. Patient will follow with PCP/Reconcilement Clerk after discharge for diabetes medications and continued disease management. Additional Hospital Problems: Peritonsillar Abscess - Unasyn 3 g q6h per NCC - ENT following - Extubated today T2DM - A1C 7.7% - Lantus 15 U q24hr COPD -Hx smoking - PFTs ordered - Duonebs q4hr - Salmeterol q12h prn HTN - Coreg 3.125 mg BID restarted. - on Coreg 6.25 mg BID and Lisinopril 10 mg QD at home Hx CAD s/p stent: - Resumed home ASA - Resumed home Rosuvastatin 40 mg QD HLD - Start home Rosuvastatin 40 mg Case findings discussed with Dr. Hall, Stroke Attending. Fito Hawkins MD Neurology Resident * Monae Nelson - 10/15/2022 12:34 PM CDT Neurology Critical Care Progress Note Esperanza Chaparro Age: [age] year old Date of : 1955 Date of Admission: 10/12/2022 Hospital Day: 3 Subjective Patient is a 67 year old male who is admitted to ICU for post-tNK monitoring. Hospital Course 67yo M with a history of ischemic stroke (2017 and 2021), prolactinoma, HTN, HLD, DM2, CAD and NSTEMI s/p stent, colon cancer, JAMES, smoking and COPD, who presented as a transfer from [facility] on 10/12 with concern for acute ischemic stroke. Patient was at [facility] on 10/12 with recently diagnosed peritonsillar abscess (treated with 5 days oral antibiotics, agent unspecified). Patient had dysphagia and dysarthria on initial evaluation. He was being prepared for discharge from the ED (lack of available beds), when the ED physician noticed left-sided weakness. Patient's mother and sister were later contacted and note that patient has had left weakness in his hand and leg (dropping things and falls whileusing walker) for the last several weeks but note that he was able to walk and the current degree of weakness is new. CTH at OSH ruled out bleed. Patient was transferred to ED for acute ischemic stroke workup and management. In [facility] ED, NIH score was 21 and patient had cortical signs (neglect, visual field cut, gaze deviation) prompting IVR activation. CTH demonstrated multiple hypodensities of the right hemisphere possibly representing areas of evolving acute infarct as well as multiple chronic infarcts. CTA demonstrated R ICA occlusion, which is chronic, seen in December 2021. IVR was cancelled d/t chronic nature of occlusion and low ASPECT score. Patient was given TNK after call to family for patient's baseline confirmed new focal deficits. Patient was admitted to [facility] for post-TNK monitoring. 10/13: Overnight, patient developed de-saturation to low 80s, hyperventilating and appearing obtundedon exam. ABG revealed mixed respiratory and non-gap metabolic acidosis. Patient required intubationin OR after failed attempts at bedside d/t airway edema. Afterwards, CT neck demonstrated bleeding with CTH negative for intracranial bleed. 10/14: No acute events overnight. Repeat CTH negative for bleed so heparin sc was started. ENT placedOGT and TF started. Interval History: No acute events, patient tolerated SBT/SAT overnight with Psupport 5, PEEP 5, FiO2 30% with RSBI <70. Pt received another dose of decardron 10mg. After reassuring neurological exam and demonstrating presence of cuff leak, patient was prepared for extubation at 8AM this morning. ACC, ENT, and neurocritical care teams were present at patient bedside. Lidocaine was administered in the oropharynx,an airway exchange cook catheter was placed successfully, and the patient was extubated to nasal cannula. The patient was carefully monitored afterwards with cook catheter removed after 15 minutes. Objective Patient Vitals for the past 24 hrs: BP Temp Temp src Pulse Resp SpO2 10/15/22 1200 -- 98.3 ??F (36.8 ??C) Oral -- -- -- 10/15/22 1100 147/62 -- -- 51 16 96 % 10/15/22 1000 149/67 98 ??F (36.7 ??C) Axillary 49 17 98 % 10/15/22 0900 146/66 -- -- 54 19 97 % 10/15/22 0800 161/69 98.2 ??F (36.8 ??C) Axillary 57 19 98 % 10/15/22 0700 154/63 -- -- 59 17 97 % 10/15/22 0600 141/67 -- Axillary 61 19 95 % 10/15/22 0513 -- -- -- 50 17 98 % 10/15/22 0500 152/70 -- -- 51 18 98 % 10/15/22 0405 164/76 -- -- 60 19 97 % 10/15/22 0400 166/79 97.5 ??F (36.4 ??C) Axillary 69 19 98 % 10/15/22 0300 164/76 -- -- 66 18 98 % 10/15/22 0200 147/72 97.5 ??F (36.4 ??C) Axillary 56 17 97 % 10/15/22 0100 154/70 -- -- 64 18 96 % 10/15/22 0011 -- -- -- 50 -- 98 % 10/15/22 0000 152/74 98 ??F (36.7 ??C) Axillary 74 21 94 % 10/14/22 2316 -- -- -- 50 18 97 % 10/14/22 2300 138/62 -- -- 55 10 95 % 10/14/22 2200 143/59 -- -- 52 9 96 % 10/14/22 2100 141/65 -- -- 51 17 98 % 10/14/22 2000 141/72 98.2 ??F (36.8 ??C) Axillary 51 14 98 % 10/14/22 1946 -- -- -- 54 -- 98 % 10/14/22 1900 137/62 -- -- 54 9 97 % 10/14/22 1800 157/67 97.7 ??F (36.5 ??C) Axillary 57 17 96 % 10/14/22 1700 130/52 -- -- 61 20 95 % 10/14/22 1600 133/58 97.5 ??F (36.4 ??C) Axillary 59 16 95 % 10/14/22 1500 139/69 -- -- 57 15 97 % 10/14/22 1400 142/70 97.8 ??F (36.6 ??C) Axillary 63 15 95 % 10/14/22 1300 137/63 -- -- 63 15 94 % Exam: Propofol paused. Patient intubated. Pupils: Equal and briskly reactive; left unable to assess with pupillometer (dyscoria, likely 2/2 surgery). Opens right eye with noxious stimulus. Spontaneously moves R extremities, follows commands on right. Withdraws to pain on left side. Strength: 2/5 LUE, 2/5 LLE, 3/5 RUE, 4/5 RLE. No pronator drift on RUE. Corneal, cough, gag intact. Lungs: CTAx2 Heart: RRR, no murmurs. Assessment Esperanza Chaparro is a 67 year old male who presented 10/12 as a transfer from [facility] to [facility] ED with left-sided weakness, cortical signs, and NIHSS 21 with chronic R ICA occlusion and CTH evidence of multiple hypodensities in the right anterior temporal lobe and insula with repeat CTH after 6 hours demonstrating interval diffuse edema in the right MCA territory concerning for evolving acute infarct. Patient received TNK and was admitted to [facility] for post-tNK monitoring. MR brain 10/13 subsequently demonstrated late acute/ early subacute infarct in the R frontal, parietal, and temporal lobes consistent with known infarct in the R MCA and SHEA territories, no evidence of hemorrhagic transformation. Mechanism of acute stroke is likely large vessel, consider flow failure in the setting of relative hypotension with limited supply through collateral circulation in this patient with long segment occlusion of the right ICA from the carotid bulb to the terminus with reconstitution of flow to the right SHEA and MCA via the miami of Arvizu. Also consider cardioembolic given location of infarct in multiple vascular territories. Plan Neurological/psych #Acute infarct in the territory of the R MCA, SHEA, and small cerebellar infarct s/p TNK #Chronic R ICA occlusion on CTA - Post-tPA monitoring - Neuro + pupilometer checks q1h - Stat CT head for any change in neurological examination - Head of bed > 30?? - Avoid hyperthermia, hypoglycemia, hyponatremia - Continue ASA - NSGY following for decompressive hemicraniectomy watch - Stroke workup for secondary prevention per stroke team. - SBP goal 120-180 Analgesia/sedation: - Wean propofol gtt. - Fentanyl 50mcg q1h PRN for CPOT > 2 #Encephalopathy, resolved - Consider multifactorial 2/2 hypoxia with mixed acidosis and relative hypotension (in this patientwith chronic R ICA occlusion) resulting in poor cerebral perfusion. - cEEG: slowing (encephalopathy) with moderate suppression of R hemisphere. - CTM with neuro checks q1h #Hx of ischemic stroke - Discharged on ASA and ticagrelol December 2021, currently only on ASA. SBP goal 140-160mmHg on discharge. - Continue ASA 81mg QD - Resume home rosuvastatin 40mg QHS #Prolactinoma - per patient's mother and sister, pt not taking prescribed cabergoline Cardiovascular - sBP 128-166 - HR 60-79 #HTN - Home meds: coreg 6.25mg BID, lisinopril 10mg QD - SBP goal 120-180 - Hemodynamic monitoring #Bradycardia, improving #First degree AV block - Sinus kristal on EKG 12/2021 - EKG 10/12/22 with first degree AV block - Holding home coreg. - CTM #Troponinemia - Likely demand post stroke - peak of 72 on 10/13, since downtrending - EKst degree AV block, no VENKATA #CAD s/p stent (date unknown) #Hx of NSTEMI - Continue home ASA - Continue home rosuvastatin 40mg QD - Holding home nitroglycerin 0.3mg Respiratory SpO2 96-98% on 4-5L NC #Intubated for acute hypoxic hypercarbic respiratory failure, extubated 10/15 #Airway obstruction 2/2 laryngeal abscess and airway edema s/p intubation c/b bleeding, succesfullyextubated 10/15 - Aspiration precautions - Elevate head of bed - Maintain oxygen saturation > 88% - Monitor for respiratory distress - Satting well on NC, wean supplemental O2 as tolerated. #COPD - Home meds: Fluticasone/Salmeterol 100/50 1 inh BID PRN, Tiotropium 2.5 mcg/Actuat 60D 2 inh once a day, and Albuterol 90 mcg 2 puffs QID PRN - Continue budesonide 500mcg nebs QD - Continue duo-nebs q4h #JAMES - Consider CPAP post extubation Renal/Electrolytes - Na: 138 - Cr: 2.16 (2.04) - eGFR: 33 - BUN: 63 (52) - Bicarb: 18 - K: 4.8 - M.6 - Phos: 3.7 Intake/Output Summary (Last 24 hours) at 10/15/2022 1235 Last data filed at 10/15/2022 1000 Gross per 24 hour Intake 1268.74 ml Output 1350 ml Net -81.26 ml #BRYCE on CKD - Pre-renal injury in this patient who was NPO yesterday (prior to OGT 24hrs post TNK). BUN/Cr 25 - CKD likely 2/2 DM and HTN - 24hr fluid intake: 1.5L - 24hr urine output: 1.35L (0.54cc/kg/hr) > Administer 1L bolus isolyte > Condom cath with bladder scanner +sc q6h > Monitor intake and output > Replete electrolytes as needed #Mixed respiratory and non-anion gap metabolic acidosis on admission, resolved - ABG 10/13: pH 7.31 (7.12), pCO2 37 (62), pO2 134 (59), FiO2 50 (100). - Likely component of RTA 2/2 CKD in addition to respiratory acidosis, improved on ventilator. > F/u daily serum bicarb and renal function #Hyperkalemia, resolved - No changes on EKG - f/u daily BMP Infectious Disease - Tmax overnight 36.8C - WBCs 10.5 (11.5) #Leukocytosis, improving #Peritonsillar Abscess - F/u daily CBC - Monitor for fevers - ENT following, attempted bedside drain, no fluid drained. Continue Unasyn (day 3/7), okay to transition to oral augmentin when taking PO. Gastrointestinal #Dysphagia - CHEMISTRY PHYSICS TEACHER swallow evaluation pending - Diet: NPO until swallow - Bowel Movements: 10/15 - GI Ppx: none - Bowel Regimen: miralax and senna Heme/Onc - Hb 11.5 (11.8) - Plateletes 174 (237) - PT 13.8 - INR 1.1 #Post TNK monitoring - DVT ppx: SCDs and heparin sc. Endocrine HbA1C 7.7 #DM2 #Hyperglycemia - BG 217-254mg/dl over 24hr (note pt received dexamethasone) - Home regimen: empagliflozin 25mg QD - Required 52units lispro yesterday - Increase glargine to 20U and continue accuchecks + SSI q4h - BG goal 140-180 #HLD - Start home rosuvastatin 40mg. Musculoskeletal No active issues. DVT prophylaxis: SCDs LDAs: PIVs Disposition: NCC SW: pending PT/OT: pending Code Status: Full Patient's case was discussed & staffed w/ NCC Attending Dr. Luis Alberto Nelson MS4 Associated attestation - Adrianna Sahu MD - 10/15/2022 4:14 PM CDT Neurologic Critical Care Attending I spent 45 minutes in full attendance with this critically-ill patient. Time spent was exclusive ofseparately billed procedures, treating other patients, and teaching time. I have reviewed and agreewith resident/medical student documentation. The patient is at high risk for complications and morbidity or mortality. The patient is criticallyill with vital organ impairment of failure with high probability of imminent or life-threatening deterioration in the patient's condition. Critical care was necessary to treat or prevent life-threatening deterioration of the following: Ischemic stroke (CMS/HCC) (POA: Yes) Carotid occlusion, right (POA: Yes) Carotid stenosis, left (POA: Yes) Weakness (POA: Unknown) Coronary artery disease (POA: No) JAMES (obstructive sleep apnea) (POA: Yes) COPD (chronic obstructive pulmonary disease) (CMS/HCC) (POA: Unknown) Stage 3 chronic kidney disease (CMS/HCC) (POA: Unknown) Peritonsillar abscess (POA: Yes) Dyspnea (POA: Yes) Respiratory acidosis (POA: Yes) Hx of completed stroke (POA: Yes) DM2 (diabetes mellitus, type 2) (CMS/HCC) (POA: Yes) Primary hypertension (POA: Yes) Smoker (POA: Yes) The plan of care other than mentioned in resident/medical student note consists of: AIS. S/p TNK. Brain compression. Secondary stroke workup/prevention per stroke. Post TNK monitoringper protocol Close neuro monitoring in the ICU NSGY consulted for C watch Acute hypoxic and hypercarbic respiratory failure This am, patient tolerated gradual vent support weaning and cuff leak was present. Decision was made to trial extubation over cook airway exchange catheter. Prior to extubation, Anesthesia and ENT team were at bedside. His tomeka- laryn pharynx was anesthized with lidocaine. So was the trachea. Cook exchange catheter was inserted through ETT and ETT was removed while leaving cook in place. Patient was also placed on precedex gtt to ensure tolerance of cook catheter. Patient tolerated extubation well and cook catheter was eventually removed. No obstruction was identified after extubation. Cont to downtitrate O2 to keep SpO > 90 Peritonsillar abscess. Unasyn for 7days. Appreciate ENT recs DM. Adjust insulin to keep BG < 180 BRYCE on CKD. Montior UOP, replete lytes as needed. Hydration with IVF Dysphagia. Failed CHEMISTRY PHYSICS TEACHER today, cont IVF now and repeat CHEMISTRY PHYSICS TEACHER assessment again tmr Adrianna Sahu MD Neurologic Critical Care Attending 10/15/2022 * Elsi Patterson, [facility] - 10/15/2022 8:35 AM CDT Extubated by ACC. RT at bedside. Pt placed on 5L NC and sating 97%. * Cristian Sharma - 10/15/2022 8:06 AM CDT Stroke Service Daily Progress Note Esperanza Chaparro Age: [age] year old Date of : 1955 Date of Admission: 10/12/2022 Hospital Day: 3 Subjective Brief History: Mr. Esperanza Chaparro is a 67-year old man with a history of ischemic stroke in 2017 and 2021, HTN, HLD, DM, NSTEMI s/p stenting, prolactinoma, colon cancer, tobacco use, JAMES, and COPD. Patient was being[facility] at [facility] for a peritonsillar abscess after presenting on 10/12. ED physicians re-evaulated the physician and confirmed left-sided flaccid weakness. Family confirmed that this is a new finding, although he was dropping things and falling from his walker previously. Pt was transferred to [facility] for acute stroke management. NIHSS was 21 with neglect and gaze deviation on admission. CT head showed multiple areas of hypodensity in the right hemisphere suggestive of acute infarcts as well chronic infarcts. CTA head and neck showed right ICA occlusion, previously identified in December 2021. TNK was administered ([id number]-wx-[id number] time 17 mins), but MT not pursued due to low ASPECT score. Pt admitted to neuro ICU for continued monitoring. In neuro ICU, pt had increasing oxygen requirements and ABG consistent with respiratory acidosis. Pt was intubated successfully. Repeat CTH showed no worsening of stroke but CT neck showed bleeding. Interval History: No acute overnight events. NIH score today morning was 18, stable from yesterday. Pt saturating well on 30% FiO2 and afebrile. Plan was extubated between morning visit at ~7:30 am and rounds, appearsto be doing well. Currently 97% O2 on 5L NC. Pt to continue on Unasyn per ENT. Objective Patient Vitals for the past 24 hrs: BP Temp Temp src Pulse Resp SpO2 Height Weight 10/15/22 0700 154/63 -- -- 59 17 97 % -- -- 10/15/22 0600 141/67 -- Axillary 61 19 95 % -- -- 10/15/22 0513 -- -- -- 50 17 98 % -- -- 10/15/22 0500 152/70 -- -- 51 18 98 % -- -- 10/15/22 0405 164/76 -- -- 60 19 97 % -- -- 10/15/22 0400 166/79 97.5 ??F (36.4 ??C) Axillary 69 19 98 % -- -- 10/15/22 0300 164/76 -- -- 66 18 98 % -- -- 10/15/22 0200 147/72 97.5 ??F (36.4 ??C) Axillary 56 17 97 % -- -- 10/15/22 0100 154/70 -- -- 64 18 96 % -- -- 10/15/22 0011 -- -- -- 50 -- 98 % -- -- 10/15/22 0000 152/74 98 ??F (36.7 ??C) Axillary 74 21 94 % -- -- 10/14/226 -- -- -- 50 18 97 % -- -- 10/14/22 2300 138/62 -- -- 55 10 95 % -- -- 10/14/22 2200 143/59 -- -- 52 9 96 % -- -- 10/14/22 2100 141/65 -- -- 51 17 98 % -- -- 10/14/22 2000 141/72 98.2 ??F (36.8 ??C) Axillary 51 14 98 % -- -- 10/14/22 1946 -- -- -- 54 -- 98 % -- -- 10/14/22 1900 137/62 -- -- 54 9 97 % -- -- 10/14/22 1800 157/67 97.7 ??F (36.5 ??C) Axillary 57 17 96 % -- -- 10/14/22 1700 130/52 -- -- 61 20 95 % -- -- 10/14/22 1600 133/58 97.5 ??F (36.4 ??C) Axillary 59 16 95 % -- -- 10/14/22 1500 139/69 -- -- 57 15 97 % -- -- 10/14/22 1400 142/70 97.8 ??F (36.6 ??C) Axillary 63 15 95 % -- -- 10/14/22 1300 137/63 -- -- 63 15 94 % -- -- 10/14/22 1200 162/75 97.5 ??F (36.4 ??C) Axillary 74 16 95 % -- -- 10/14/22 1100 135/58 -- -- 53 13 93 % 1.778 m (5' 10 ) 105.7 kg (233 lb) 10/14/22 1000 128/58 97.8 ??F (36.6 ??C) Axillary 62 20 92 % -- -- 10/14/22 0900 138/60 -- -- 54 19 95 % -- -- Intake/Output Summary (Last 24 hours) at 10/15/2022 0807 Last data filed at 10/15/2022 0617 Gross per 24 hour Intake 1368.74 ml Output 1350 ml Net 18.74 ml Exam: Cortical Function Mental Status Somnolent but arousalable to normal voice. Follows commands Orientation Oriented to name, place, year, situation Language Comprehension intact, unable to assess fluency and repetition 2/2 to OG tube Visual Orozco Intact bilaterally Neglect Not assessed Cranial Nerves II Pupils reactive to light bilaterally VIII Pt follows commands III/IV/ Extraocular muscles intact. No diplopia, ptosis, nystagmus or convergence abnormalities noted. IX/X Not assessed V Facial sensation intact bilaterally in ophthalmic, maxillary, and mandibular zones XI Not assessed VII Left facial palsy noted. Upper facial musculature intact XII Not assessed Motor Function Movement No abnormalities noted Bulk No abnormalities noted Tone No abnormalities noted Proximal Upper Distal Upper Proximal Lower Distal Lower Right 3/5 3/5 4/5 4/5 Left 1/5 1/5 0/5 0/5 Muscle Stretch Reflexes BI TRI BR PAT ACH TOES Right 2 Not tested 2 2 2 Down Left 2 Not tested 2 2 2 Down Sensory Light Touch No response bilaterally to light touch Noxious Stimuli Movement observed to pinch on all 4 extremeties Temperature Not tested Pallesthesia Not tested Cerebellar FNF RON HKS Right Not tested Not tested Not tested Left Not tested Not tested Not tested Gait Deferred Labs: Recent Labs Component Name 10/14/22 9432 06/11/298 10/13/22 0535 WBC 10.5 11.5* 15.1* RBC 3.72* 3.86* 4.01* HGB 10.9* 11.3* 11.8* HCT 33.2* 35.0* 35.4 Recent Labs Component Name 10/14/227 10/14/228 10/12/22 2353 NA 138 137 137 CL 112* 114* 110* CO2 18* 16* 18* BUN 63* 52* 34* CREATININE 2.16* 2.04* 1.40* CALCIUM 8.8 8.8 9.4 No results for input(s): MG in the last 82772 hours. Recent Labs Component Name 10/14/22235610/14/2211710/12/22 235 PHOS 3.7 4.6 3.5 Recent Labs Component Name 10/12/22202001/19/22 0948 12/11/21 1227 PT 13.8 12.4 13.0 INR 1.1 0.9 1.0 PTT - - 35.2 No results for input(s): A1C in the last 33645 hours. Recent Labs Component Name 10/14/22 0118 10/13/22 0228 12/12/21 0205 CHOL - 148 188 HDL - 40* 33* LDLCALC - 85 112* TRIG 200* 117 216* No results for input(s): TSH in the last 06456 hours. Invalid input(s): FT4, TOTT3 Recent Labs Component Name 12/13/21 0301 12/12/21 1229 12/12/21 0205 TROPONINI 0.046* 0.039* 0.042* XR ABDOMEN KUB PORTABLE Result Date: 10/14/2022 PROCEDURE: XR ABDOMEN KUB PORTABLE, DATE/TIME OF EXAM: 10/13/2022 10:23 PM, LOCATION [facility] INDICATION: R13.10: Dysphagia, unspecified type ADDITIONAL CLINICAL INFORMATION: Ordering Provider Reason For Exam: OG tube placement COMPARISON: Abdominal radiograph 10/13/2022 at 10:52 AM FINDINGS/IMPRESSION: Enteric tube courses below the diaphragm with the distal tip superimposing thegastric body. Partially imaged colonic gaseous distention, increased from the prior exam. Report dictated by Oscar Santizo MD (residential tech). I, CEDRIC FLORES MD have personally reviewedand interpreted this examination/study. > Interpreting Provider: CEDRIC FLORES MD on 10/14/2022 7:[address] HEAD NON CONTRAST Result Date: 10/13/2022 EXAM: CT HEAD WO CONTRAST, DATE/TIME OF EXAM: 10/13/2022 8:29 PM, LOCATION: [facility] HISTORY: R53.1: Weakness ADDITIONAL CLINICAL INFORMATION: Ordering Provider Reason For Exam: Post tPa imaging EXAMINATION: CT scan of the head without intravenous contrast TECHNIQUE: CT of the head was performed without intravenous contrast according to standard protocol. CT dose reduction technique was used, including Automated Exposure Control. COMPARISON: Head CTs 10/13/2022 at 1:07 AM and 10/12/2022. FINDINGS: See impression. IMPRESSION: 1.Further increased conspicuity of large areas of hypoattenuation with loss of goldman-white differentiation involving the right frontal, parietal, and temporal lobes in addition to the right insula, which is consistent with an evolving large acute infarct corresponding to the right middlecerebral artery (MCA) vascular territory. 2.Further increased conspicuity of a moderately-size areaof hypoattenuation with loss of goldman-white differentiation along the parasagittal right frontal lobe, consistent with an evolving large acute infarct corresponding to the right anterior cerebral artery (SHEA) vascular territory. 3.No evidence of hemorrhagic conversion, significant midline shift, brain herniation, or evidence of hydrocephalus. 4.Please refer to recently reported head CTs 10/12/2022 and 10/12/2022 for description of additional chronic findings. Results of this exam were verbally discussed by Dr. Zelda Willams with Dr. Brannon on 10/13/2022 at 9:02 PM for a Critical Stroke Protocol withreadback confirmation and verification. The images were reviewed by attending physician Dr. Zelda Willams prior to this communication. > Interpreting Provider: Zelda Willams MD, PhD on 10/13/2022 9:09 PM XR CHEST 1VW PORTABLE Result Date: 10/13/2022 PROCEDURE: XR CHEST 1VW PORTABLE, DATE/TIME OF EXAM: 10/13/2022 1:53 AM, LOCATION [facility] INDICATION: R06.00: Dyspnea, unspecified type ADDITIONAL CLINICAL INFORMATION: Ordering Provider Reason For Exam: ETT position COMPARISON: Chest x-ray 10/13/2022. FINDINGS/IMPRESSION: Endotracheal tube terminates at the level of thoracic inlet/mid thoracic trachea, approximately 7 cm above the cathi. A loop recorder superimposes the left chest. There is minimal basilar atelectasis. There is no focal consolidation, pleural effusion, or pneumothorax. The heart size is normal and mediastinal contours are normal. > Dictated by Noe Bravo MD (residential tech). Wen Orourke MD have personally reviewed and interpreted this examination/study. > Interpreting Provider: Wen Lee MD on 10/13/2022 2:16 PM XR CHEST 1VW PORTABLE Result Date: 10/13/2022 EXAMINATION: XR CHEST 1VW PORTABLE HISTORY: E87.29: Respiratory acidosis COMPARISON: Chest radiograph 10/13/2022 at 1:46 AM FINDINGS/IMPRESSION: Lines: *Endotracheal tube terminates within the mid thoracic trachea. *A loop recorder is partially visualized superimposing the left chest. Aside from mildbibasilar atelectasis, there is no confluent consolidation. No pleural effusion is seen. No pneumothorax is identified. The cardiac silhouette is within normal limits. Aortic atherosclerosis is noted. The superior mediastinal contours are within normal limits. No acute osseous abnormality is identified. Report dictated by Oscar Santizo M.D. (residential tech) 10/13/2022 7:05 AM ICEDRIC MD have personally reviewed and interpreted this examination/study. > Interpreting Provider: CEDRIC FLORES MD on 10/13/2022 2:14 PM XR ABDOMEN KUB PORTABLE Result Date: 10/13/2022 PROCEDURE: XR ABDOMEN KUB PORTABLE, DATE/TIME OF EXAM: 10/13/2022 11:01 AM, LOCATION [facility] INDICATION: R53.1: Weakness ADDITIONAL CLINICAL INFORMATION: Ordering Provider Reason For Exam: MRI COMPARISON: None. TECHNIQUE: Supine frontal radiograph of the abdomen. FINDINGS: A looprecorder overlies the left axilla. No evidence of retained metallic density foreign bodies within the abdomen. The urinary bladder is opacified with contrast material. Moderate gas and stool are present. There are no findings to suggest bowel obstruction, free intraperitoneal gas or pneumatosis. Noabnormal calcifications are seen. No bone abnormality is seen. IMPRESSION: 1.A loop recorder overlies the left axilla. No evidence of retained metallic density foreign bodies within the abdomen. 2.Nonobstructive bowel gas pattern. Report dictated by Oscar Santizo M.D. (residential tech) 10/13/2022 11:03 AM Adiel Orourke MD have personally reviewed and interpreted this examination/study. > Interpreting Provider: Adiel Lynn MD on 10/13/2022 1:03 PM XR CHEST 1VW PORTABLE Result Date: 10/13/2022 EXAMINATION: XR CHEST 1VW PORTABLE HISTORY: R06.00: Dyspnea, unspecified type E87.29: Respiratory acidosis COMPARISON: Chest radiograph 10/12/2022 FINDINGS/IMPRESSION: Lines: *Interval insertion of endotracheal tube which terminates in the proximal thoracic trachea, 6 cm from the cathi. *A loop recor manish superimposes the left chest. No confluent consolidation is noted. No pleural effusion is seen. No pneumothorax is identified. The heart is borderline enlarged. Aortic atherosclerosis is noted. The superior mediastinal contours are within normal limits. No acute osseous abnormality is identified. Report dictated by Oscar Santizo M.D. (residential tech) 10/13/2022 7:05 AM Adiel Orourke MD have personally reviewed and interpreted this examination/study. > Interpreting Provider: Adiel Lynn MD on 10/13/2022 11:[address] NECK SOFT TISSUE W CONT Result Date: 10/13/2022 PROCEDURE: CT NECK SOFT TISSUE W CONT, DATE/TIME OF EXAM: 10/13/2022 1:29 AM, LOCATION [facility] INDICATION: R06.00: Dyspnea, unspecified type ADDITIONAL CLINICAL INFORMATION: Ordering Provider Reason For Exam: Peritonsillar abscess Technologist Note: None. Additional: Per chart review, patient was difficult to intubate and multiple attempts were required. CONTRAST: IOPAMIDOL 76 % IV SOLN:75 mL EXAMINATION: Computed tomography (CT) of the neck with contrast TECHNIQUE: CT of theneck was performed following the uneventful administration of 75 mL Isovue-370 contrast according to standard protocol. CT dose reduction technique was used, including Automated Exposure Control. COMP ARISON: CT angiogram of the neck performed 10/30 [...] kenneth bullosa.. Paraseptal emphysema and lung scarring. IMPRESSION: 1.Findings concerning for right peritonsillar abscess with associated diffuse pharyngitis and extensive laryngeal edema, extending to the level of the supraglottic larynx, resulting in airway compromise status post endotracheal intubation. Preliminary findings were discussed with the patient's care provider, Dr. Brannon by Dr. Cleveland via telephone at 0248 on 10/13/2022 with readback comprehension and verification. > Dictated by Dean Cleveland M.D. (residential tech) Sundar Orourke MD have personally reviewed and interpreted this examination/study. > Interpreting Provider: Sundar Devine MD on 10/13/2022 10:[address] HEAD WO CONTRAST Result Date: 10/13/2022 PROCEDURE: CT HEAD WO CONTRAST, DATE/TIME OF EXAM: 10/13/2022 1:26 AM, LOCATION [facility] INDICATION: I63.9: Ischemic stroke ([facility]/HCC) EXAMINATION: Computed tomography (CT) of the head without contrast ADDITIONAL CLINICAL INFORMATION: Ordering Provider Reason For Exam: Acute respiratory distress. R/o central causes Technologist Note: None. Additional: None. TECHNIQUE: CT of the head was performed without contrast according to standard protocol. CT dose reduction technique was used, including Automated Exposure Control. COMPARISON: CT of the head from 10/12/2022. FINDINGS: No acute intra- or extra-axial fluid collections are identified. There is mild cerebral volume loss with associated ex vacuo ventricular dilatation. The basilar cisterns are patent. No significant mass effect or midline shift is seen. There has been interval mild diffuse but subtle hypoattenuation and loss of orozco-white matter differentiation involving larger portions of the right frontal and right temp oral lobes as well as the right insula, and possibly posterior lateral temporal lobes which could represent acute evolving acute right MCA territory infarcts. MRI of the brain is recommended for further evaluation. Additional subtle hypoattenuation along the parasagittal right frontal lobe is also noted. Redemonstration of chronic infarcts with areas of encephalomalacia and gliosis in the right frontal and right parietal as well as the right occipital lobes compatible with chronic right MCA, SHEA, and BOARD MEMBER territory infarcts. Additional tiny lacunar infarcts in the bilateral cerebellar hemispheres are again noted. Periventricular white matter hypoattenuation is indicative of chronic small vess el ischemic disease. There is vascular calcification of the carotid siphons. No acute calvarial fracture is identified. Other than bilateral cataract extractions, the orbits appear normal. There is mild paranasal sinus disease. Opacification of the nasal passages and the nasopharynx. The patient is intubated. The mastoid air cells are grossly clear. Calcific densities along the left frontal scalpare again noted. No soft tissue abnormality is otherwise identified. IMPRESSION: 1.Suggestion of interval diffuse edema in the right MCA territory concerning for evolving right MCA territory ischemia. MRI of the brain is recommended for further evaluation.. 2.Additional chronic findings as outlined above. Results of this exam were communicated with closed loop confirmation to Dr. Mendenhall by Dr. Devine on 10/13/2022 at 9:54 AM with read back compression and verification. Report dictated by Romain Mckee MD, PhD (residential tech). ISundar MD have personally reviewed and interpreted this examination/study. > Interpreting Provider: Sundar Devine MD on 10/13/2022 10:21 AM XR CHEST 1VW PORTABLE Result Date: 10/13/2022 EXAMINATION: XR CHEST 1VW PORTABLE HISTORY: R53.1: Weakness COMPARISON: Chest radiograph dated 12/11/2021 FINDINGS/IMPRESSION: Lines: *A loop recorder superimposes the left chest. No confluent consolidation is noted. No pleural effusion is seen. No pneumothorax is identified. The heart is enlarged for this AP view. Aortic atherosclerosis is noted. The superior mediastinal contours are within normallimits. No acute osseous abnormality is identified. No free air is seen under the diaphragm. > Interpreting Provider: CEDRIC FLORES MD on 10/13/2022 6:[address] ANGIO BRAIN NECK STROKE Result Date: 10/12/2022 EXAM: CT ANGIO BRAIN NECK STROKE, DATE/TIME OF EXAM: 10/12/2022 7:42 PM, LOCATION: [facility] HISTORY: Code Stroke EXAMINATION: CT angiogram images [...] right middle cerebral artery (MCA) via the [place] of [place]/patent anterior communicating artery. Diminished opacification of the right MCA M1 segment and distal branches with notable markedly diminutive opacification versus nonopacification of the MCA M3 segment and beyond. No occlusion or hemodynamical ly significant stenosis elsewhere of the major intracranial arteries. Patent intracranial left ICA,left MCA, bilateral ACAs, vertebral artery V4 segments, [...] ARTERIES: No occlusion or hemodynamically significant stenosis. Noevidence of dissection. OTHER: Partially imaged lung apices [...] the right SHEA and MCA via the [place] of [place]. Diminished opacification of the right [...] communication. Report dictated by Gilbert Morrow MD (residential tech). I, Zelda Willams MD, PhD have personally reviewed and interpreted this examination/study. > Interpreting Provider: Zelda Willams MD, PhD on 10/12/2022 8:[address] BRAIN - Stroke Result Date: 10/12/2022 EXAM: CT BRAIN STROKE, DATE/TIME OF EXAM: 10/12/2022 7:32 PM, LOCATION: [facility] HISTORY: Code Stroke EXAMINATION: CT scan of [...] PARENCHYMA: No acute parenchymal hemorrhage. Apparent hypodensity ofthe right anterior temporal lobe and insular region, which is nonspecific and may be attributable to motion artifact or possibly representing areas of evolving acute infarct. No mass effect, midline shift, or brain herniation. Re-demonstrated areas of encephalomalacia involving the right frontal and right parietal lobes, consistent with chronic infarcts involving the right middle cerebral artery ( MCA) vascular territory and right anterior cerebral artery (SHEA)/MCA watershed territory. Re-demonstrated area of encephalomalacia involving the right occipital lobe, consistent with a chronic infarct involving the right posterior cerebral artery (BOARD MEMBER) vascular territory. Multiple small chronic lacunes of [...] tissues. Mildly expansile soft tissue lesion of [id number] of the sella turcica measuring 2.1 x 1.6 cm (09/03), which is associated with thinning of thedorsum sellae and is incompletely assessed on this [...] infarct. Recommend follow-up brain MRI without contrast forfurther evaluation. 3.Multiple chronic infarcts of the right cerebral hemisphere and multiple smallchronic lacunes of the left greater than right cerebellar hemispheres as described. 4.Mildly expansile soft tissue lesion of the mid-to-left aspect of the sella turcica measuring 2.1 x 1.6 cm, which is associated with thinning of the dorsum sellae and is incompletely assessed on this examination. Recommend follow-up sella MRI without and with contrast. Results of this exam were verbally discussedby Dr. Zelda Willams with Dr. Brannon on 10/12/2022 at 7:44 PM for a Critical Stroke Protocol with readback confirmation and verification. The images were reviewed by attending physician Dr. Zelda Willamsprior to this communication. > Interpreting Provider: Zelda Willams MD, PhD on 10/12/2022 8:20 PM Assessment Mr. Esperanza Chaparro is a 67-year old man presenting on 10/12 from [facility] for left- sided flaccid weaknessconcerning for acute stroke. CTH showed acute stroke with chronic infarcts. CTA head and neck showed right ICA occlusion, previously identified in December 2021. TNK was administered ([id number] time 17 mins), but MT not pursued due to low ASPECT score. MRI showed right frontal, parietal, and temporal lobes consistent with known infarct in the right MCA and SHEA territories, with no hemorrhagic transformation. Stroke Type: Ischemic Stroke Mechanism: Carotid stump syndrome vs flow failure on chronic R ICA occlusion Plan #R SHEA MCA territory stroke #R ICA occlusion #Hx of CVA Localization: Left-sided hemiparesis in upper and lower extremity consistent with injury to motor cortex vs internal capsule. Right gaze deviation and neglect on admission suggestive of cortical infarct. MRI confirmed SHEA and MCA territory stroke of right cerebral cortex. Mechanism: Given simultaenous infarct of both SHEA and MCA territories, an embolic mechanism is unlikely. However, carotid stump syndrome cannot be ruled out given chronic proximal R ICA occlusion. Most likely hypovolemic episode in the setting of chronic R ICA occlusion resulted in ischemia to right cerebral cortex. Precipitating events could be due to vagus nerve stimulation from management of peritonsillar abscess vs sepsis. Plan: - Treating for both carotid stump syndrome and flow failure - CTH, CTA H/N, MRI Brain w/o contrast complete - TTE completed yesterday - mild left ventricular dilation, normal systolic function, trace mitral and tricuspid regurg - HbA1C, Lipid Panel, Cardiac Enzymes - UA and UDS - Tele + neuro checks q4h - Head of bed >30 degrees - NPO until passes swallow - SBP goals 130-180 - Start DAPT tomorrow - Start aspirin 81 mg qD for secondary prevention - If concerned about another stroke presentation, switch to SAPT + anticoagulation - PT/OT eval pending - Neurosurgery consulted and following for possible decompressive hemicraniectomy - ENT: no further intervention as of now, still following #Abnormal EEG - EEG (10/14) showed moderately severe moderately severe suppression of right hemisphere activity (acute ischemic infarct) and slow background indicating bilateral cerebral hemispheric dysfunction (encephalopathy) - Decreased LOC with normal orientation noted on physical exam. However, patient was on propofol - Encephalopathy DDX: hypoxic brain injury vs toxin ingestion/withdrawal (UDS positive for opiates)vs uremic encephalopathy (creatinine and BUN trending up) vs thyroid encephalopathy Plan: - Continue to monitor patient exam - TSH pending - Consider blood ammonia level #Peritonsillar abscess #Intubation - Pt needed to be intubated due to worsening respiratory acidosis and increasing O2 requirements - WBC count resolved, now WNL - O2 requirements decreasing, pt extubated today - Remainder of vitals stable - Propofol discontinued today Plan: - Continue Unasyn 3 g q6H IV for 7 days total (currently day 06/16) - Tylenol PRN - Wean O2 requirements as able - ENT performing needle aspiration and irrigation of incision with normal saline - CHEMISTRY PHYSICS TEACHER consulted and swallow study pending #T2DM - A1C (10/12): 7.7 - Overnight ranges (225-254) - 56 units Lispro and 15 units glargine administered yesterday Plan: - SSI - Accuchecks #BRYCE DDX: BRYCE vs BRYCE on CKD - Rising creatinine noted on labs today (10/15): 2.16, up from 1.2-1.4 - Likely BRYCE due to pt being NPO - Likely pre-renal mechanism given elevated BUN/creatinine (29) Plan: - Monitor I&O's - Avoid nephrotoxic agents - IV normal saline #COPD - Hx of smoking, no PFTs on file - PFTs ordered Plan: - Duo-Nebs q4H - Budenoside 500 mcg qD - salmeterol q12H PRN Core Measures tPA administration: Yes Anti-thrombotic: plan for aspirin Statin: rosuvastatin 40 mg qD DVT prophylaxis: heparin 5000 U SC Swallow Evaluation: OG tube PT/OT Evaluation: pending Smoking cessation; will cancer genetic counselor: nicotine patch Individual Modifiable Risk Factors Hypertension: yes Hyperlipidemia: yes Diabetes: yes Atrial Fibrillation: no Tobacco: yes Case findings discussed with Dr. Jorge Hall, Stroke Attending. 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 CT neck obtained showing small right peritonsillar abscess/phlegmon. Performed I&D of right peritonsillar space 10/14/22 without return of purulence. - Continue course of Unasyn x7 days - Cuff leak present today, extubate per ICU - No further intervention - Page ENT or call [facility] [phone] (7am-5PM) with questions/concerns Brad Vilchis MD Otolaryngology - Head and Neck Surgery 10/15/2022 ADDENDUM: ENT present for extubation to nasal canula. Patient did well, cough strong, no complications/airwayconcerns. - Agree with unasyn, can transition to Augmentin when able to tolerate PO. Recommend 7 day course total - Diet: after bedside swallow per nursing, okay with advancing to regular diet as tolerated from ENT perspective. - Patient can follow up with ENT in 2-3 weeks if desired/has residual pain after abx treatement. Family/pt to call [phone] to schedule. No further ENT recommendations at this time, please page/call [facility] ([phone]) for questions or concerns. Ehsan Kelly MD * David Elder MD - 10/15/2022 6:37 AM CDT Neurosurgery Progress Note Esperanza Franky Chaparro 10/15/22 Hospital Day: 3 Subjective: Patient is a 67 year old male s/p R MCA stroke, consulted for hemicrane watch. No acute events. Plans to possibly extubate today per primary team Significant Events: Objective: T: 97.5 ??F (36.4 ??C) [Temp Min: 97.5 ??F (36.4 ??C) Max: 98.2 ??F (36.8 ??C)] BP: 141/67[BP Min: 128/58 Max: 166/79] MAP: 89[MAP (mmHg) Min: 77 Max: 108] HR: 61[Pulse Min: 50 Max: 79] RR: 19[Resp Min: 9 Max: 21] Sat: 95 %[SpO2 Min: 92 % Max: 98 %] ICP: [No data recorded] EVD: none Input/Output: 10/14 0701 - 10/15 0700 In: 1468.7 [I.V.:643.7] Out: 1350 [Urine:1350] MONTSE/Other Drain: none Respiratory: PEEP/CPAP: 5 cm H20 Pressure Support: 5 cm H2O OBSERVED PEAK INSPIRATORY PRESSURE (cm H2O): 14 cm H2O SET TIDAL VOLUME (mL): 440 ML Spontaneous Tidal Volume (mL): 422 ML EXHALED TIDAL VOLUME (ml): 439 ml Labs: Recent Labs Component Name 10/14/22 2357 WBC 10.5 HGB 10.9* HCT 33.2* PLTCOUNT 174 Recent Labs Component Name 10/14/22 2357 NA 138 POTASSIUM 4.8* CO2 18* BUN 63* CREATININE 2.16* CALCIUM 8.8 GLUCOSE 237* Recent Labs Component Name 10/12/22202001/19/22 0948 12/11/21 1227 INR 1.1 - 1.0 PTT - - 35.2 - = values in this interval not displayed. Imaging: no new neuro imaging Diet: DIET NPO Except: NO EXCEPTIONS DIET TUBE FEEDING CONTINUOUS Fluids: Per primary MEDICATIONS FOR CURRENT ENCOUNTER: SCHEDULED MEDICATIONS: 0.9% NaCl injection 3 mL, Intracatheter, q8h 0.9% NaCl injection 3 mL, Intracatheter, q8h albuterol-ipratropium (Duo-Neb) nebulizer solution 3 mL, Inhalation, q6h ampicillin-sulbactam (Unasyn) 3 g in 0.9% NaCl IV 100 mL IVPB, Intravenous, q6h artificial tears ophthalmic ointment, Each Eye, q8h aspirin chew tablet 81 mg, Enteral Tube, QDAY budesonide (Pulmicort) nebulizer suspension 500 mcg, Inhalation, QDAY chlorhexidine (Peridex) 0.12 % oral solution 15 mL, Mouth/Throat, BID heparin injection 5,000 Units, Subcutaneous, q8h insulin glargine (Lantus) pen 15 Units, Subcutaneous, q24h insulin lispro (HumaLOG;ADMelog) 100 UNIT/ML pen 0-24 Units, Subcutaneous, q4h nicotine (Nicoderm CQ) patch 21 mg, Transdermal, QDAY pantoprazole (Protonix) injection 40 mg, Intravenous, QDAY perflutren lipid microsphere (Definity) injection 0.5 mL, Intravenous, intra- Procedure multiple polyethylene glycol 3350 (Miralax) packet 17 g, Enteral Tube, QDAY rosuvastatin (Crestor) tablet 40 mg, Enteral Tube, QDAY senna-docusate (Senokot-S) tablet 1 tablet, Enteral Tube, QDAY [COMPLETED] dexAMETHasone (Decadron) injection 10 mg, Intravenous, Once [COMPLETED] etomidate (Amidate) injection 20 mg, Intravenous, Once [COMPLETED] rocuronium (Zemuron) injection 100 mg, Intravenous, Once [] 0.9% NaCl injection 10 mL, Intracatheter, intra-Procedure multiple [] iopamidol (Isovue 370) 76 % contrast, Intravenous, Contrast - Once [] iopamidol (Isovue 370) 76 % contrast, Intravenous, Contrast - Once CONTINUOUS MEDICATIONS: propofol (Diprivan) infusion, Intravenous, Continuous PRN MEDICATIONS: Or 0.9% NaCl injection 1-10 mL, Intracatheter, PRN 0.9% NaCl injection 3 mL, Intracatheter, PRN acetaminophen (Tylenol) suppository 650 mg, Rectal, q4h PRN albuterol (Proventil;Ventolin) (2.5 MG/3ML) 0.083% nebulizer solution 2.5 mg, Inhalation, q6h PRN dextrose 10 % IV bolus, Intravenous, PRN dextrose 10 % IV bolus, Intravenous, PRN fentaNYL (PF) (Sublimaze) injection 50 mcg, Intravenous, q1h PRN glucagon (Glucagen) injection 1 mg, Subcutaneous, PRN glucose (Diabetic Use) (Dex4 Glucose) oral liquid, Oral, PRN glucose (Diabetic Use) oral gel, Oral, PRN glucose chew tablet 4 tablet, Oral, PRN General: intubated Neuro: GCS 10T (E3VTM6), +cough, +corneals, od3r, os3r, opens eyes to voice, Follows commands in RUE RLE LLE, withdraws LUE weakly. Assessment: 67 year old male s/p old R ICA stroke with new R MCA stroke consulted for hemicrane watch. Intubated for respiratory compromise, but following commands. Plan: - Continue to monitor neurologic exam - Will hold off on surgery for now as exam is reassuring - Will continue to follow for christy watch - Overall care per stroke - Page Neurosurgery and obtain STAT head CT with decline in neuro exam Marciano Dawson MD 6:37 AM 10/15/22 Staff note Patient seen and examined by me. Agree with above. Patient now extubated. Will watch for any further clinical deterioration and consider for decompressive craniectomy if necessary. * Long Ryan RN - 10/15/2022 2:31 AM CDT Problem: Tobacco Use Goal: Inpatient tobacco-use cessation counseling participation Outcome: Progressing Problem: Safety related to restraint use Goal: Absence of injury while restrained Outcome: Progressing Problem: Neurological Deficit Goal: Neurological status is stable or improving Outcome: Progressing Problem: Hemodynamic Status/Cardiac Output Goal: Patient has stable vital signs and fluid balance Outcome: Progressing Problem: Oxygenation/Respiratory Function Goal: Respiratory rate/effort will be within specified limits Outcome: Progressing Problem: Glycemic Control Goal: Clinical indication of glycemia balance is achieved Outcome: Progressing Problem: Aspiration Precautions Goal: Patient's risk of aspiration is minimized Outcome: Progressing * Elida Chance RN - 10/14/2022 5:19 PM CDT Problem: Tobacco Use Goal: Inpatient tobacco-use cessation counseling participation Outcome: Progressing Problem: Pain/Discomfort Goal: Patient exhibits reduced pain/discomfort as evidenced by pain scores Outcome: Progressing Goal: Patient uses pharmacological and non-pharmacological pain management strategies. Outcome: Progressing Goal: Patient verbalizes acceptable level of pain relief and ability to engage in desired activity. Outcome: Progressing Problem: Safety related to restraint use Goal: Absence of injury while restrained Outcome: Progressing Problem: Neurological Deficit Goal: Neurological status is stable or improving Outcome: Progressing Problem: Hemodynamic Status/Cardiac Output Goal: Patient has stable vital signs and fluid balance Outcome: Progressing Problem: Oxygenation/Respiratory Function Goal: Respiratory rate/effort will be within specified limits Outcome: Progressing Problem: Mobility Goal: Patient's mobility/activity will be maintained as optimum level for age, diagnosis and physical limitations Outcome: Progressing Goal: Continuum of care needs are further met through referral to outpatient services when appropriate. Outcome: Progressing Goal: Patient reports the ability to perform Activities of Daily Living. Outcome: Progressing Problem: Communication Impairment/Dysarthria Goal: Ability to express needs and understand communication Outcome: Progressing Problem: Nutrition Goal: Nutritional status is improving Outcome: Progressing Problem: Aspiration Precautions Goal: Patient's risk of aspiration is minimized Outcome: Progressing Problem: Glycemic Control Goal: Clinical indication of glycemia balance is achieved Outcome: Progressing Problem: Knowledge Deficit,Education,Discharge Plan Goal: The patient/family will understand cerebrovascular disease and its symptoms, treatment and management Outcome: Progressing Problem: Skin Integrity Goal: Skin integrity is maintained or improved Outcome: Progressing Problem: Fall Risk Goal: Fall risk and fall related injury risk are minimized (interventions related to the fall risk can be found in the flowsheet documentation) Outcome: Progressing Problem: Nutrient: Inadequate protein-energy intake Goal: Total intake will meet estimated nutrient needs Outcome: Progressing * Romain Solis MD - 10/14/2022 2:44 PM CDT Stroke Service Daily Progress Note Esperanza Chaparro Age: [age] year old Date of : 1955 Date of Admission: 10/12/2022 Hospital Day: 2 Subjective Brief History: Mr. Esperanza Chaparro is a 67-year old man with a history of ischemic stroke in 2017 and 2021, HTN, HLD, DM, NSTEMI s/p stenting, prolactinoma, colon cancer, tobacco use, JAMES, and COPD. Patient was beingtreated at [facility] for a peritonsillar abscess after presenting on 10/12. ED physicians re-evaulated the physician and confirmed left-sided flaccid weakness. Family confirmed that this is a new finding, although he was dropping things and falling from his walker previously. Pt was transferred to [facility] for acute stroke management. NIHSS was 21 with neglect and gaze deviation on admission. CT head showed multiple areas of hypodensity in the right hemisphere suggestive of acute infarcts as well chronic infarcts. CTA head and neck showed right ICA occlusion, previously identified in December 2021. TNK was administered (fuhm-vo-gmuahj time 17 mins), but MT not pursued due to low ASPECT score. Pt admitted to neuro ICU for continued monitoring. In neuro ICU, pt had increasing oxygen requirements and ABG consistent with respiratory acidosis. Pt was intubated successfully. Repeat CTH showed no worsening of stroke but CT neck showed bleeding. Interval History: CT and MRI demonstrated large infarct of MCT territory. Neurosurgery was consulted to follow for possible need for decompressive hemicraniectomy. Objective Patient Vitals for the past 24 hrs: BP Temp Temp src Pulse Resp SpO2 10/14/22 1100 135/58 -- -- 53 13 93 % 10/14/22 1000 128/58 97.8 ??F (36.6 ??C) Axillary 62 20 92 % 10/14/22 0900 138/60 -- -- 54 19 95 % 10/14/22 0800 166/68 98 ??F (36.7 ??C) Axillary 79 20 98 % 10/14/22 0700 136/61 -- -- 50 15 95 % 10/14/22 0600 132/58 -- -- 49 15 95 % 10/14/22 0500 139/65 -- -- 45 15 95 % 10/14/22 0400 136/63 98.3 ??F (36.8 ??C) Oral 52 14 93 % 10/14/22 0300 128/55 -- -- 56 19 96 % 10/14/22 0200 128/52 98.3 ??F (36.8 ??C) Oral 47 15 95 % 10/14/22 0100 117/48 -- -- 52 16 98 % 10/14/22 0030 120/48 -- -- 47 15 100 % 10/13/22 2200 120/55 -- -- 51 (!) 0 95 % 10/13/22 2100 115/50 -- -- 56 (!) 5 94 % 10/13/22 2000 118/56 -- -- 55 15 93 % 10/13/22 1930 123/56 98.6 ??F (37 ??C) Oral 52 15 94 % 10/13/22 1900 129/60 -- -- 54 18 94 % 10/13/22 1800 114/54 98.3 ??F (36.8 ??C) Oral 54 15 91 % 10/13/22 1700 114/49 -- -- 56 15 93 % 10/13/22 1600 116/53 98.3 ??F (36.8 ??C) Oral 58 21 91 % 10/13/22 1500 118/55 -- -- 51 15 94 % Intake/Output Summary (Last 24 hours) at 10/14/2022 1444 Last data filed at 10/14/2022 0610 Gross per 24 hour Intake 542.07 ml Output -- Net 542.07 ml Exam: Cortical Function Mental Status Not awake nor alert, follows commands Orientation Unable to assess mentation Language Comprehension intact, unable to assess fluency and repetition 2/2 to OG tube Visual Orozco Not assessed Neglect Not assessed Cranial Nerves II Pupils reactive to light bilaterally VIII Pt follows commands III/IV/ Extraocular muscles intact. No diplopia, ptosis, nystagmus or convergence abnormalities noted. IX/X Not assessed V Unable to assess facial sensation XI Not assessed VII No facial droop noted. Unable to ask pt to use facial musculature XII Not assessed Motor Function Movement No abnormalities noted Bulk No abnormalities noted Tone No abnormalities noted Proximal Upper Distal Upper Proximal Lower Distal Lower Right 3/5 3/5 4/5 4/5 Left 2/5 2/5 2/5 2/5 Muscle Stretch Reflexes BI TRI BR PAT ACH TOES Right 2 Not tested 2 2 2 Down Left 2 Not tested 2 2 2 Down Sensory Light Touch No response bilaterally to light touch Noxious Stimuli Movement observed to pinch on all 4 extremeties Temperature Not tested Pallesthesia Not tested Cerebellar FNF RON HKS Right Not tested Not tested Not tested Left Not tested Not tested Not tested Gait Deferred Labs: Recent Labs Component Name 10/14/2211710/13/2253410/12/222352 WBC 11.5* 15.1* 22.0* RBC 3.86* 4.01* 4.62 HGB 11.3* 11.8* 13.4 HCT 35.0* 35.4 41.3 Recent Labs Component Name 10/14/2211710/12/22235210/12/222022 NA 137 137 137 CL 114* 110* 120* CO2 16* 18* 13* BUN 52* 34* 27* CREATININE 2.04* 1.40* 0.91 CALCIUM 8.8 9.4 5.8* No results for input(s): MG in the last 70694 hours. Recent Labs Component Name 10/14/2211710/12/22235210/12/222020 PHOS 4.6 3.5 2.8 Recent Labs Component Name 10/12/22202001/19/22 0948 12/11/21 1227 PT 13.8 12.4 13.0 INR 1.1 0.9 1.0 PTT - - 35.2 No results for input(s): A1C in the last 08438 hours. Recent Labs Component Name 10/14/22 0118 10/13/22 0228 12/12/21 0205 CHOL - 148 188 HDL - 40* 33* LDLCALC - 85 112* TRIG 200* 117 216* No results for input(s): TSH in the last 60545 hours. Invalid input(s): FT4, TOTT3 Recent Labs Component Name 12/13/21 0301 12/12/21 1229 12/12/21 0205 TROPONINI 0.046* 0.039* 0.042* XR ABDOMEN KUB PORTABLE Result Date: 10/14/2022 PROCEDURE: XR ABDOMEN KUB PORTABLE, DATE/TIME OF EXAM: 10/13/2022 10:23 PM, LOCATION [facility] INDICATION: R13.10: Dysphagia, unspecified type ADDITIONAL CLINICAL INFORMATION: Ordering Provider Reason For Exam: OG tube placement COMPARISON: Abdominal radiograph 10/13/2022 at 10:52 AM FINDINGS/IMPRESSION: Enteric tube courses below the diaphragm with the distal tip superimposing thegastric body. Partially imaged colonic gaseous distention, increased from the prior exam. Report dictated by Oscar Santizo MD (residential tech). I, CEDRIC FLORES MD have personally reviewedand interpreted this examination/study. > Interpreting Provider: CEDRIC FLORES MD on 10/14/2022 7:[address] HEAD NON CONTRAST Result Date: 10/13/2022 EXAM: CT HEAD WO CONTRAST, DATE/TIME OF EXAM: 10/13/2022 8:29 PM, LOCATION: [facility] HISTORY: R53.1: Weakness ADDITIONAL CLINICAL INFORMATION: Ordering Provider Reason For Exam: Post tPa imaging EXAMINATION: CT scan of the head without intravenous contrast TECHNIQUE: CT of the head was performed without intravenous contrast according to standard protocol. CT dose reduction technique was used, including Automated Exposure Control. COMPARISON: Head CTs 10/13/2022 at 1:07 AM and 10/12/2022. FINDINGS: See impression. IMPRESSION: 1.Further increased conspicuity of large areas of hypoattenuation with loss of goldman-white differentiation involving the right frontal, parietal, and temporal lobes in addition to the right insula, which is consistent with an evolving large acute infarct corresponding to the right middlecerebral artery (MCA) vascular territory. 2.Further increased conspicuity of a moderately-size areaof hypoattenuation with loss of goldman-white differentiation along the parasagittal right frontal lobe, consistent with an evolving large acute infarct corresponding to the right anterior cerebral artery (SHEA) vascular territory. 3.No evidence of hemorrhagic conversion, significant midline shift, brain herniation, or evidence of hydrocephalus. 4.Please refer to recently reported head CTs 10/12/2022 and 10/12/2022 for description of additional chronic findings. Results of this exam were verbally discussed by Dr. Zelda Willams with Dr. Brannon on 10/13/2022 at 9:02 PM for a Critical Stroke Protocol withreadback confirmation and verification. The images were reviewed by attending physician Dr. Zelda Willams prior to this communication. > Interpreting Provider: Zelda Willams MD, PhD on 10/13/2022 9:09 PM XR CHEST 1VW PORTABLE Result Date: 10/13/2022 PROCEDURE: XR CHEST 1VW PORTABLE, DATE/TIME OF EXAM: 10/13/2022 1:53 AM, LOCATION [facility] INDICATION: R06.00: Dyspnea, unspecified type ADDITIONAL CLINICAL INFORMATION: Ordering Provider Reason For Exam: ETT position COMPARISON: Chest x-ray 10/13/2022. FINDINGS/IMPRESSION: Endotracheal tube terminates at the level of thoracic inlet/mid thoracic trachea, approximately 7 cm above the cathi. A loop recorder superimposes the left chest. There is minimal basilar atelectasis. There is no focal consolidation, pleural effusion, or pneumothorax. The heart size is normal and mediastinal contours are normal. > Dictated by Noe Bravo MD (residential tech). I, Wen Lee MD have personally reviewed and interpreted this examination/study. > Interpreting Provider: Wen Lee MD on 10/13/2022 2:16 PM XR CHEST 1VW PORTABLE Result Date: 10/13/2022 EXAMINATION: XR CHEST 1VW PORTABLE HISTORY: E87.29: Respiratory acidosis COMPARISON: Chest radiograph 10/13/2022 at 1:46 AM FINDINGS/IMPRESSION: Lines: *Endotracheal tube terminates within the mid thoracic trachea. *A loop recorder is partially visualized superimposing the left chest. Aside from mildbibasilar atelectasis, there is no confluent consolidation. No pleural effusion is seen. No pneumothorax is identified. The cardiac silhouette is within normal limits. Aortic atherosclerosis is noted. The superior mediastinal contours are within normal limits. No acute osseous abnormality is identified. Report dictated by Oscar Santizo M.D. (residential tech) 10/13/2022 7:05 AM ICEDRIC MD have personally reviewed and interpreted this examination/study. > Interpreting Provider: CEDRIC FLORES MD on 10/13/2022 2:14 PM XR ABDOMEN KUB PORTABLE Result Date: 10/13/2022 PROCEDURE: XR ABDOMEN KUB PORTABLE, DATE/TIME OF EXAM: 10/13/2022 11:01 AM, LOCATION [facility] INDICATION: R53.1: Weakness ADDITIONAL CLINICAL INFORMATION: Ordering Provider Reason For Exam: MRI COMPARISON: None. TECHNIQUE: Supine frontal radiograph of the abdomen. FINDINGS: A looprecorder overlies the left axilla. No evidence of retained metallic density foreign bodies within the abdomen. The urinary bladder is opacified with contrast material. Moderate gas and stool are present. There are no findings to suggest bowel obstruction, free intraperitoneal gas or pneumatosis. Noabnormal calcifications are seen. No bone abnormality is seen. IMPRESSION: 1.A loop recorder overlies the left axilla. No evidence of retained metallic density foreign bodies within the abdomen. 2.Nonobstructive bowel gas pattern. Report dictated by Oscar Santizo M.D. (residential tech) 10/13/2022 11:03 AM IAdiel MD have personally reviewed and interpreted this examination/study. > Interpreting Provider: Adiel Lynn MD on 10/13/2022 1:03 PM XR CHEST 1VW PORTABLE Result Date: 10/13/2022 EXAMINATION: XR CHEST 1VW PORTABLE HISTORY: R06.00: Dyspnea, unspecified type E87.29: Respiratory acidosis COMPARISON: Chest radiograph 10/12/2022 FINDINGS/IMPRESSION: Lines: *Interval insertion of endotracheal tube which terminates in the proximal thoracic trachea, 6 cm from the cathi. *A loop recor manish superimposes the left chest. No confluent consolidation is noted. No pleural effusion is seen. No pneumothorax is identified. The heart is borderline enlarged. Aortic atherosclerosis is noted. The superior mediastinal contours are within normal limits. No acute osseous abnormality is identified. Report dictated by Oscar Santizo M.D. (residential tech) 10/13/2022 7:05 AM Adiel Orourke MD have personally reviewed and interpreted this examination/study. > Interpreting Provider: Adiel Lynn MD on 10/13/2022 11:[address] NECK SOFT TISSUE W CONT Result Date: 10/13/2022 PROCEDURE: CT NECK SOFT TISSUE W CONT, DATE/TIME OF EXAM: 10/13/2022 1:29 AM, LOCATION [facility] INDICATION: R06.00: Dyspnea, unspecified type ADDITIONAL CLINICAL INFORMATION: Ordering Provider Reason For Exam: Peritonsillar abscess Technologist Note: None. Additional: Per chart review, patient was difficult to intubate and multiple attempts were required. CONTRAST: IOPAMIDOL 76 % IV SOLN:75 mL EXAMINATION: Computed tomography (CT) of the neck with contrast TECHNIQUE: CT of theneck was performed following the uneventful administration of 75 mL Isovue-370 contrast according to standard protocol. CT dose reduction technique was used, including Automated Exposure Control. COMP ARISON: CT angiogram of the neck performed 10/30 [...] kenneth bullosa.. Paraseptal emphysema and lung scarring. IMPRESSION: 1.Findings concerning for right peritonsillar abscess with associated diffuse pharyngitis and extensive laryngeal edema, extending to the level of the supraglottic larynx, resulting in airway compromise status post endotracheal intubation. Preliminary findings were discussed with the patient's care provider, Dr. Brannon by Dr. Cleveland via telephone at 0248 on 10/13/2022 with readback comprehension and verification. > Dictated by Dean Cleveland M.D. (residential tech) I, Sundar Devine MD have personally reviewed and interpreted this examination/study. > Interpreting Provider: Sundar Devine MD on 10/13/2022 10:[address] HEAD WO CONTRAST Result Date: 10/13/2022 PROCEDURE: CT HEAD WO CONTRAST, DATE/TIME OF EXAM: 10/13/2022 1:26 AM, LOCATION [facility] INDICATION: I63.9: Ischemic stroke ([facility]) EXAMINATION: Computed tomography (CT) of the head without contrast ADDITIONAL CLINICAL INFORMATION: Ordering Provider Reason For Exam: Acute respiratory distress. R/o central causes Technologist Note: None. Additional: None. TECHNIQUE: CT of the head was performed without contrast according to standard protocol. CT dose reduction technique was used, including Automated Exposure Control. COMPARISON: CT of the head from 10/12/2022. FINDINGS: No acute intra- or extra-axial fluid collections are identified. There is mild cerebral volume loss with associated ex vacuo ventricular dilatation. The basilar cisterns are patent. No significant mass effect or midline shift is seen. There has been interval mild diffuse but subtle hypoattenuation and loss of orozco-white matter differentiation involving larger portions of the right frontal and right temp oral lobes as well as the right insula, and possibly posterior lateral temporal lobes which could represent acute evolving acute right MCA territory infarcts. MRI of the brain is recommended for further evaluation. Additional subtle hypoattenuation along the parasagittal right frontal lobe is also noted. Redemonstration of chronic infarcts with areas of encephalomalacia and gliosis in the right frontal and right parietal as well as the right occipital lobes compatible with chronic right MCA, SHEA, and BOARD MEMBER territory infarcts. Additional tiny lacunar infarcts in the bilateral cerebellar hemispheres are again noted. Periventricular white matter hypoattenuation is indicative of chronic small vess el ischemic disease. There is vascular calcification of the carotid siphons. No acute calvarial fracture is identified. Other than bilateral cataract extractions, the orbits appear normal. There is mild paranasal sinus disease. Opacification of the nasal passages and the nasopharynx. The patient is intubated. The mastoid air cells are grossly clear. Calcific densities along the left frontal scalpare again noted. No soft tissue abnormality is otherwise identified. IMPRESSION: 1.Suggestion of interval diffuse edema in the right MCA territory concerning for evolving right MCA territory ischemia. MRI of the brain is recommended for further evaluation.. 2.Additional chronic findings as outlined above. Results of this exam were communicated with closed loop confirmation to Dr. Mendenhall by Dr. Devine on 10/13/2022 at 9:54 AM with read back compression and verification. Report dictated by Romain Mckee MD, PhD (residential tech). I, Sundar Devine MD have personally reviewed and interpreted this examination/study. > Interpreting Provider: Sundar Devine MD on 10/13/2022 10:21 AM XR CHEST 1VW PORTABLE Result Date: 10/13/2022 EXAMINATION: XR CHEST 1VW PORTABLE HISTORY: R53.1: Weakness COMPARISON: Chest radiograph dated 12/11/2021 FINDINGS/IMPRESSION: Lines: *A loop recorder superimposes the left chest. No confluent consolidation is noted. No pleural effusion is seen. No pneumothorax is identified. The heart is enlarged for this AP view. Aortic atherosclerosis is noted. The superior mediastinal contours are within normallimits. No acute osseous abnormality is identified. No free air is seen under the diaphragm. > Interpreting Provider: CEDRIC FLORES MD on 10/13/2022 6:[address] ANGIO BRAIN NECK STROKE Result Date: 10/12/2022 EXAM: CT ANGIO BRAIN NECK STROKE, DATE/TIME OF EXAM: 10/12/2022 7:42 PM, LOCATION: [facility] HISTORY: Code Stroke EXAMINATION: CT angiogram images [...] right middle cerebral artery (MCA) via the [place] of Arvizu/patent anterior communicating artery. Diminished opacification of the right MCA M1 segment and distal branches with notable markedly diminutive opacification versus nonopacification of the MCA M3 segment and beyond. No occlusion or hemodynamical ly significant stenosis elsewhere of the major intracranial arteries. Patent intracranial left ICA,left MCA, bilateral ACAs, vertebral artery V4 segments, [...] ARTERIES: No occlusion or hemodynamically significant stenosis. Noevidence of dissection. OTHER: Partially imaged lung apices [...] the right SHEA and MCA via the [place] of Arvizu. Diminished opacification of the right [...] communication. Report dictated by Gilbert Morrow MD (residential tech). I, Zelda Willams MD, PhD have personally reviewed and interpreted this examination/study. > Interpreting Provider: Zelda Willams MD, PhD on 10/12/2022 8:[address] BRAIN - Stroke Result Date: 10/12/2022 EXAM: CT BRAIN STROKE, DATE/TIME OF EXAM: 10/12/2022 7:32 PM, LOCATION: [facility] HISTORY: Code Stroke EXAMINATION: CT scan of [...] PARENCHYMA: No acute parenchymal hemorrhage. Apparent hypodensity ofthe right anterior temporal lobe and insular region, which is nonspecific and may be attributable to motion artifact or possibly representing areas of evolving acute infarct. No mass effect, midline shift, or brain herniation. Re-demonstrated areas of encephalomalacia involving the right frontal and right parietal lobes, consistent with chronic infarcts involving the right middle cerebral artery ( MCA) vascular territory and right anterior cerebral artery (SHEA)/MCA watershed territory. Re-demonstrated area of encephalomalacia involving the right occipital lobe, consistent with a chronic infarct involving the right posterior cerebral artery (BOARD MEMBER) vascular territory. Multiple small chronic lacunes of [...] tissues. Mildly expansile soft tissue lesion of [id number] of the sella turcica measuring 2.1 x 1.6 cm (09/03), which is associated with thinning of thedorsum sellae and is incompletely assessed on this [...] infarct. Recommend follow-up brain MRI without contrast forfurther evaluation. 3.Multiple chronic infarcts of the right cerebral hemisphere and multiple smallchronic lacunes of the left greater than right cerebellar hemispheres as described. 4.Mildly expansile soft tissue lesion of the mid-to-left aspect of the sella turcica measuring 2.1 x 1.6 cm, which is associated with thinning of the dorsum sellae and is incompletely assessed on this examination. Recommend follow-up sella MRI without and with contrast. Results of this exam were verbally discussedby Dr. Zelda Willams with Dr. Brannon on 10/12/2022 at 7:44 PM for a Critical Stroke Protocol with readback confirmation and verification. The images were reviewed by attending physician Dr. Zelda Willamsprior to this communication. > Interpreting Provider: Zelda Willams MD, PhD on 10/12/2022 8:20 PM Assessment Mr. Esperanza Chaparro is a 67-year old man presenting on 10/12 from [facility] for left- sided flaccid weaknessconcerning for acute stroke. CTH showed acute stroke with chronic infarcts. CTA head and neck showed right ICA occlusion, previously identified in December 2021. TNK was administered ([id number] time 17 mins), but MT not pursued due to low ASPECT score. MRI showed right frontal, parietal, and temporal lobes consistent with known infarct in the right MCA and SHEA territories, with no hemorrhagic transformation. Stroke Type: Ischemic Stroke Mechanism: Hypovolemia on chronic R ICA occlusion Plan #R SHEA MCA territory stroke #R ICA occlusion #Hx of CVA Localization: Left-sided hemiparesis in upper and lower extremity consistent with injury to motor cortex vs internal capsule. Right gaze deviation and neglect on admission suggestive of cortical infarct. MRI confirmed SHEA and MCA territory stroke of right cerebral cortex. Mechanism: Given simultaenous infarct of both SHEA and MCA territories, an embolic mechanism is unlikely. Most likely hypovolemic episode in the setting of chronic R ICA occlusion resulted in ischemiato right cerebral cortex. Precipitating events could be due to vagus nerve stimulation from management of peritonsillar abscess vs sepsis. Plan: - CTH, CTA H/N, MRI Brain w/o contrast complete - TTE pending - Tele + neuro checks q4h - Head of bed >30 degrees - NPO until passes swallow - SBP goals 120-180 - Start aspirin 81 mg qD for secondary prevention - Neurosurgery consulted and following for possible decompressive hemicraniectomy #Peritonsillar abscess #Intubation - Unasyn 3 g q6H IV - ENT consulted - CHEMISTRY PHYSICS TEACHER consulted and swallow study pending #T2DM - A1C (10/12): 7.7 - Overnight ranges (201-204) - Lantus 15 U q24h #BRYCE DDX: BRYCE vs BRYCE on CKD - Rising creatinine noted on labs today (10/14): 2.04, up from 1.2-1.4 - Likely BRYCE due to pt being NPO Plan: - TF started via OG tube - Monitor I&O's - Avoid nephrotoxic agents #COPD - Hx of smoking, no PFTs on file - PFTs ordered Plan: - Duo-Nebs q4H - salmeterol q12H PRN Core Measures tPA administration: Yes Anti-thrombotic: plan for aspirin Statin: rosuvastatin 40 mg qD DVT prophylaxis: heparin 5000 U subQ q8h Swallow Evaluation: OG tube PT/OT Evaluation: pending Smoking cessation: nicotine patch Individual Modifiable Risk Factors Hypertension: yes Hyperlipidemia: yes Diabetes: yes Atrial Fibrillation: no Tobacco: yes Case findings discussed with Dr. Jorge Hall, Stroke Attending. Romain Solis MD M3 * Jorge Hall MD - 10/14/2022 1:26 PM CDT The above note was reviewed. The patient was seen and examined. I would add the following: I saw and examined the patient with the resident and/or medical student and/or nurse practitioner. I have verified all details of the note and agree with his/her documentation with additions and modifications as listed in my separate note. Please refer to the resident's, medical student's, or nursepractitioner's note for plans of active problems not discussed in this note. 67M with hx of right ICA occlusion and R MCA infarction and peritonsillar abcess presented on 10/12 to the [place] ED for somnolence, left-sided hemiplegia and right- sided gaze deviation. Upon arrival to [facility] S/p TNK and intubation for respiratory distress. Angiogram 01/2022 showed R ICA occlusion. Admitted to ICU. MRI right MCA and SHEA cortical infarcts of the same acute age. Based on distribution and appearance of the acute lesions etiology is possibly flow failure and given old R ICA occlusion likely failure of supply through the collateral circulation (AComm and ECA) which could have happened in the context of the infection. Alternatively may consider proximal or distal stump syndrome but that'd be unusual given both MCA and SHEA involvement. Currently sedated and intubated. - Will start DAPT after 24 hours - Maintain perfusion with SBP goals 130-160 - Continue Lipitor - ENT on board for the abscess - on zosyn - EEG MEDICATIONS FOR CURRENT ENCOUNTER: SCHEDULED MEDICATIONS: 0.9% NaCl injection 3 mL, Intracatheter, q8h 0.9% NaCl injection 3 mL, Intracatheter, q8h albuterol-ipratropium (Duo-Neb) nebulizer solution 3 mL, Inhalation, q4h ampicillin-sulbactam (Unasyn) 3 g in 0.9% NaCl IV 100 mL IVPB, Intravenous, q6h artificial tears ophthalmic ointment, Each Eye, q8h budesonide (Pulmicort) nebulizer suspension 500 mcg, Inhalation, QDAY chlorhexidine (Peridex) 0.12 % oral solution 15 mL, Mouth/Throat, BID heparin injection 5,000 Units, Subcutaneous, q8h insulin glargine (Lantus) pen 15 Units, Subcutaneous, q24h insulin lispro (HumaLOG;ADMelog) 100 UNIT/ML pen 0-24 Units, Subcutaneous, q4h iopamidol (Isovue 370) 76 % contrast, Intravenous, Contrast - Once iopamidol (Isovue 370) 76 % contrast, Intravenous, Contrast - Once nicotine (Nicoderm CQ) patch 21 mg, Transdermal, QDAY pantoprazole (Protonix) injection 40 mg, Intravenous, QDAY polyethylene glycol 3350 (Miralax) packet 17 g, Enteral Tube, QDAY rosuvastatin (Crestor) tablet 40 mg, Enteral Tube, QDAY senna-docusate (Senokot-S) tablet 1 tablet, Enteral Tube, QDAY [COMPLETED] dexAMETHasone (Decadron) injection 10 mg, Intravenous, q8h [COMPLETED] etomidate (Amidate) injection 20 mg, Intravenous, Once ?? [COMPLETED] rocuronium (Zemuron) injection 100 mg, Intravenous, Once CONTINUOUS MEDICATIONS: ?? propofol (Diprivan) infusion, Intravenous, Continuous PRN MEDICATIONS: Or 0.9% NaCl injection 1-10 mL, Intracatheter, PRN 0.9% NaCl injection 3 mL, Intracatheter, PRN acetaminophen (Tylenol) suppository 650 mg, Rectal, q4h PRN albuterol (Proventil;Ventolin) (2.5 MG/3ML) 0.083% nebulizer solution 2.5 mg, Inhalation, q6h PRN dextrose 10 % IV bolus, Intravenous, PRN dextrose 10 % IV bolus, Intravenous, PRN fentaNYL (PF) (Sublimaze) injection 50 mcg, Intravenous, q1h PRN glucagon (Glucagen) injection 1 mg, Subcutaneous, PRN glucose (Diabetic Use) (Dex4 Glucose) oral liquid, Oral, PRN glucose (Diabetic Use) oral gel, Oral, PRN ?? glucose chew tablet 4 tablet, Oral, PRN Patient Vitals for the past 24 hrs: Temp Pulse Resp BP 10/14/22 1100 -- 53 13 135/58 10/14/22 1000 97.8 ??F (36.6 ??C) 62 20 128/58 10/14/22 0900 -- 54 19 138/60 10/14/22 0800 98 ??F (36.7 ??C) 79 20 166/68 10/14/22 0700 -- 50 15 136/61 10/14/22 0600 -- 49 15 132/58 10/14/22 0500 -- 45 15 139/65 10/14/22 0400 98.3 ??F (36.8 ??C) 52 14 136/63 10/14/22 0300 -- 56 19 128/55 10/14/22 0200 98.3 ??F (36.8 ??C) 47 15 128/52 10/14/22 0100 -- 52 16 117/48 10/14/22 0030 -- 47 15 120/48 10/13/22 2200 -- 51 (!) 0 120/55 10/13/22 2100 -- 56 (!) 5 115/50 10/13/22 2000 -- 55 15 118/56 10/13/22 1930 98.6 ??F (37 ??C) 52 15 123/56 10/13/22 1900 -- 54 18 129/60 10/13/22 1800 98.3 ??F (36.8 ??C) 54 15 114/54 10/13/22 1700 -- 56 15 114/49 10/13/22 1600 98.3 ??F (36.8 ??C) 58 21 116/53 10/13/22 1500 -- 51 15 118/55 10/13/22 1400 98.3 ??F (36.8 ??C) 54 15 132/65 Intake/Output Summary (Last 24 hours) at 10/14/2022 1326 Last data filed at 10/14/2022 0610 Gross per 24 hour Intake 542.07 ml Output 700 ml Net -157.93 ml Labs: Recent Labs Component Name 10/14/22 0118 10/13/22 0228 12/12/21 0205 CHOL - 148 188 TRIG 200* 117 216* HDL - 40* 33* LDLCALC - 85 112* Recent Labs Component Name 10/12/22 2231 12/11/21 1227 HGBA1C 7.7* 7.1* Recent Labs Component Name 10/14/22 0118 10/12/22235210/12/22202210/12/22202001/19/22 0948 12/14/21 0255 NA 137 137 137 135* - 136 POTASSIUM 5.2* 5.1* 3.3* 5.2* - 5.5* CL 114* 110* 120* 109* - 100 CO2 16* 18* 13* 16* - 22 BUN 52* 34* 27* 34* - 22 CREATININE 2.04* 1.40* 0.91 1.36* - 1.40* CALCIUM 8.8 9.4 5.8* 9.1 - 9.6 MAGNESIUM 2.7* 1.9 - 1.8 - 1.6 PHOS 4.6 3.5 - 2.8 - 3.7 - = values in this interval not displayed. Recent Labs Component Name 10/14/2211710/13/2253410/12/22235201/19/2248 12/14/21 0255 WBC 11.5* 15.1* 22.0* 8.5 7.8 HGB 11.3* 11.8* 13.4 12.7 12.0 HCT 35.0* 35.4 41.3 38.6 36.2 PLTCOUNT 174 - 237 237 260 RBC 3.86* 4.01* 4.62 4.50 4.18* Recent Labs Component Name 10/12/22202001/19/2248 12/11/21 1227 PT 13.8 12.4 13.0 INR 1.1 0.9 1.0 PTT - - 35.2 Recent Labs Component Name 10/13/22 0535 10/13/2222710/12/222352 PH 7.31* 7.28* 7.12* PCO2 37 40 62* PO2 134* 115* 59* FIO2 50.0 50.0 100.0 No data found. Micro: Microbiology Results (Displays last 21 days for this encounter ONLY) No results found for the last 504 hours. Length of stay: 2 Problem List Ischemic stroke ([facility]) (POA: Yes) Carotid occlusion, right (POA: Yes) Carotid stenosis, left (POA: Yes) Weakness (POA: Unknown) Coronary artery disease (POA: No) JAMES (obstructive sleep apnea) (POA: Yes) COPD (chronic obstructive pulmonary disease) (CMS/HCC) (POA: Unknown) Stage 3 chronic kidney disease (CMS/HCC) (POA: Unknown) Peritonsillar abscess (POA: Yes) Dyspnea (POA: Yes) Respiratory acidosis (POA: Yes) Hx of completed stroke (POA: Yes) DM2 (diabetes mellitus, type 2) (CMS/HCC) (POA: Yes) Primary hypertension (POA: Yes) Smoker (POA: Yes) Present on Admission: ??? Ischemic stroke (CMS/HCC) ??? DM2 (diabetes mellitus, type 2) (CMS/HCC) ??? Hx of completed stroke ??? Primary hypertension ??? Smoker ??? Carotid occlusion, right ??? Carotid stenosis, left ??? JAMES (obstructive sleep apnea) ??? Peritonsillar abscess ??? Dyspnea ??? Respiratory acidosis Routine multidisciplinary rounds were completed today with the presence of the primary team staff, residents, PT/OT/CHEMISTRY PHYSICS TEACHER and CM/SW. Jorge Hall MD Vascular and Interventional Neurology * Cristian Sharma - 10/14/2022 12:32 PM CDT Stroke Service Daily Progress Note Esperanza Chaparro Age: [age] year old Date of : 1955 Date of Admission: 10/12/2022 Hospital Day: 2 Subjective Brief History: Mr. Esperanza Chaparro is a 67-year old man with a history of ischemic stroke in 2017 and 2021, HTN, HLD, DM, NSTEMI s/p stenting, prolactinoma, colon cancer, tobacco use, JAMES, and COPD. Patient was beingtreated at [facility] for a peritonsillar abscess after presenting on 10/12. ED physicians re-evaulated the physician and confirmed left-sided flaccid weakness. Family confirmed that this is a new finding, although he was dropping things and falling from his walker previously. Pt was transferred to [facility] for acute stroke management. NIHSS was 21 with neglect and gaze deviation on admission. CT head showed multiple areas of hypodensity in the right hemisphere suggestive of acute infarcts as well chronic infarcts. CTA head and neck showed right ICA occlusion, previously identified in December 2021. TNK was administered ([id number]-qfwmgh time 17 mins), but MT not pursued due to low ASPECT score. Pt admitted to neuro ICU for continued monitoring. In neuro ICU, pt had increasing oxygen requirements and ABG consistent with respiratory acidosis. Pt was intubated successfully. Repeat CTH showed no worsening of stroke but CT neck showed bleeding. Interval History: Pt saturating well on 30% FiO2 and afebrile. ENT consulted and recommended an OG tube due to no concern of an abscess. OG tube placed and TF started. Neurosurgery following pt status for possible decompressive hemicraniectomy. Repeat CTH showed evolving large acute infarct of R MCA territory. Objective Patient Vitals for the past 24 hrs: BP Temp Temp src Pulse Resp SpO2 10/14/22 1100 135/58 -- -- 53 13 93 % 10/14/22 1000 128/58 97.8 ??F (36.6 ??C) Axillary 62 20 92 % 10/14/22 0900 138/60 -- -- 54 19 95 % 10/14/22 0800 166/68 98 ??F (36.7 ??C) Axillary 79 20 98 % 10/14/22 0700 136/61 -- -- 50 15 95 % 10/14/22 0600 132/58 -- -- 49 15 95 % 10/14/22 0500 139/65 -- -- 45 15 95 % 10/14/22 0400 136/63 98.3 ??F (36.8 ??C) Oral 52 14 93 % 10/14/22 0300 128/55 -- -- 56 19 96 % 10/14/22 0200 128/52 98.3 ??F (36.8 ??C) Oral 47 15 95 % 10/14/22 0100 117/48 -- -- 52 16 98 % 10/14/22 0030 120/48 -- -- 47 15 100 % 10/13/22 2200 120/55 -- -- 51 (!) 0 95 % 10/13/22 2100 115/50 -- -- 56 (!) 5 94 % 10/13/221999 118/56 -- -- 55 15 93 % 10/13/22 1930 123/56 98.6 ??F (37 ??C) Oral 52 15 94 % 10/13/22 1900 129/60 -- -- 54 18 94 % 10/13/22 1800 114/54 98.3 ??F (36.8 ??C) Oral 54 15 91 % 10/13/22 1700 114/49 -- -- 56 15 93 % 10/13/22 1600 116/53 98.3 ??F (36.8 ??C) Oral 58 21 91 % 10/13/22 1500 118/55 -- -- 51 15 94 % 10/13/22 1400 132/65 98.3 ??F (36.8 ??C) Oral 54 15 94 % 10/13/22 1300 131/59 -- -- 50 15 94 % Intake/Output Summary (Last 24 hours) at 10/14/2022 1232 Last data filed at 10/14/2022 0610 Gross per 24 hour Intake 558.65 ml Output 700 ml Net -141.35 ml Exam: Cortical Function Mental Status Not awake nor alert, follows commands Orientation Unable to assess mentation Language Comprehension intact, unable to assess fluency and repetition 2/2 to OG tube Visual Orozco Not assessed Neglect Not assessed Cranial Nerves II Pupils reactive to light bilaterally VIII Pt follows commands III/IV/ Extraocular muscles intact. No diplopia, ptosis, nystagmus or convergence abnormalities noted. IX/X Not assessed V Unable to assess facial sensation XI Not assessed VII No facial droop noted. Unable to ask pt to use facial musculature XII Not assessed Motor Function Movement No abnormalities noted Bulk No abnormalities noted Tone No abnormalities noted Proximal Upper Distal Upper Proximal Lower Distal Lower Right 3/5 3/5 4/5 4/5 Left 2/5 2/5 2/5 2/5 Muscle Stretch Reflexes BI TRI BR PAT ACH TOES Right 2 Not tested 2 2 2 Down Left 2 Not tested 2 2 2 Down Sensory Light Touch No response bilaterally to light touch Noxious Stimuli Movement observed to pinch on all 4 extremeties Temperature Not tested Pallesthesia Not tested Cerebellar FNF RON HKS Right Not tested Not tested Not tested Left Not tested Not tested Not tested Gait Deferred Labs: Recent Labs Component Name 10/14/22 0118 10/13/2235 10/12/222352 WBC 11.5* 15.1* 22.0* RBC 3.86* 4.01* 4.62 HGB 11.3* 11.8* 13.4 HCT 35.0* 35.4 41.3 Recent Labs Component Name 10/14/22 0118 10/12/22235210/12/222022 NA 137 137 137 CL 114* 110* 120* CO2 16* 18* 13* BUN 52* 34* 27* CREATININE 2.04* 1.40* 0.91 CALCIUM 8.8 9.4 5.8* No results for input(s): MG in the last 38124 hours. Recent Labs Component Name 10/14/2211710/12/22235210/12/222020 PHOS 4.6 3.5 2.8 Recent Labs Component Name 10/12/22202001/19/22 0948 12/11/21 1227 PT 13.8 12.4 13.0 INR 1.1 0.9 1.0 PTT - - 35.2 No results for input(s): A1C in the last 85919 hours. Recent Labs Component Name 10/14/22 0118 10/13/22 0228 12/12/21 0205 CHOL - 148 188 HDL - 40* 33* LDLCALC - 85 112* TRIG 200* 117 216* No results for input(s): TSH in the last 49163 hours. Invalid input(s): FT4, TOTT3 Recent Labs Component Name 12/13/21 0301 12/12/21 1229 12/12/21 0205 TROPONINI 0.046* 0.039* 0.042* XR ABDOMEN KUB PORTABLE Result Date: 10/14/2022 PROCEDURE: XR ABDOMEN KUB PORTABLE, DATE/TIME OF EXAM: 10/13/2022 10:23 PM, LOCATION [facility] INDICATION: R13.10: Dysphagia, unspecified type ADDITIONAL CLINICAL INFORMATION: Ordering Provider Reason For Exam: OG tube placement COMPARISON: Abdominal radiograph 10/13/2022 at 10:52 AM FINDINGS/IMPRESSION: Enteric tube courses below the diaphragm with the distal tip superimposing thegastric body. Partially imaged colonic gaseous distention, increased from the prior exam. Report dictated by Oscar Santizo MD (residential tech). I, CEDRIC FLORES MD have personally reviewedand interpreted this examination/study. > Interpreting Provider: CEDRIC FLORES MD on 10/14/2022 7:[address] HEAD NON CONTRAST Result Date: 10/13/2022 EXAM: CT HEAD WO CONTRAST, DATE/TIME OF EXAM: 10/13/2022 8:29 PM, LOCATION: [facility] HISTORY: R53.1: Weakness ADDITIONAL CLINICAL INFORMATION: Ordering Provider Reason For Exam: Post tPa imaging EXAMINATION: CT scan of the head without intravenous contrast TECHNIQUE: CT of the head was performed without intravenous contrast according to standard protocol. CT dose reduction technique was used, including Automated Exposure Control. COMPARISON: Head CTs 10/13/2022 at 1:07 AM and 10/12/2022. FINDINGS: See impression. IMPRESSION: 1.Further increased conspicuity of large areas of hypoattenuation with loss of goldman-white differentiation involving the right frontal, parietal, and temporal lobes in addition to the right insula, which is consistent with an evolving large acute infarct corresponding to the right middlecerebral artery (MCA) vascular territory. 2.Further increased conspicuity of a moderately-size areaof hypoattenuation with loss of goldman-white differentiation along the parasagittal right frontal lobe, consistent with an evolving large acute infarct corresponding to the right anterior cerebral artery (SHEA) vascular territory. 3.No evidence of hemorrhagic conversion, significant midline shift, brain herniation, or evidence of hydrocephalus. 4.Please refer to recently reported head CTs 10/12/2022 and 10/12/2022 for description of additional chronic findings. Results of this exam were verbally discussed by Dr. Zelda Willams with Dr. Brannon on 10/13/2022 at 9:02 PM for a Critical Stroke Protocol withreadback confirmation and verification. The images were reviewed by attending physician Dr. Zelda Willams prior to this communication. > Interpreting Provider: Zelda Willams MD, PhD on 10/13/2022 9:09 PM XR CHEST 1VW PORTABLE Result Date: 10/13/2022 PROCEDURE: XR CHEST 1VW PORTABLE, DATE/TIME OF EXAM: 10/13/2022 1:53 AM, LOCATION [facility] INDICATION: R06.00: Dyspnea, unspecified type ADDITIONAL CLINICAL INFORMATION: Ordering Provider Reason For Exam: ETT position COMPARISON: Chest x-ray 10/13/2022. FINDINGS/IMPRESSION: Endotracheal tube terminates at the level of thoracic inlet/mid thoracic trachea, approximately 7 cm above the cathi. A loop recorder superimposes the left chest. There is minimal basilar atelectasis. There is no focal consolidation, pleural effusion, or pneumothorax. The heart size is normal and mediastinal contours are normal. > Dictated by oNe Bravo MD (residential tech). Wen Orourke MD have personally reviewed and interpreted this examination/study. > Interpreting Provider: Wen Lee MD on 10/13/2022 2:16 PM XR CHEST 1VW PORTABLE Result Date: 10/13/2022 EXAMINATION: XR CHEST 1VW PORTABLE HISTORY: E87.29: Respiratory acidosis COMPARISON: Chest radiograph 10/13/2022 at 1:46 AM FINDINGS/IMPRESSION: Lines: *Endotracheal tube terminates within the mid thoracic trachea. *A loop recorder is partially visualized superimposing the left chest. Aside from mildbibasilar atelectasis, there is no confluent consolidation. No pleural effusion is seen. No pneumothorax is identified. The cardiac silhouette is within normal limits. Aortic atherosclerosis is noted. The superior mediastinal contours are within normal limits. No acute osseous abnormality is identified. Report dictated by Oscar Santizo M.D. (residential tech) 10/13/2022 7:05 AM CEDRIC Orourke MD have personally reviewed and interpreted this examination/study. > Interpreting Provider: CEDRIC FLORES MD on 10/13/2022 2:14 PM XR ABDOMEN KUB PORTABLE Result Date: 10/13/2022 PROCEDURE: XR ABDOMEN KUB PORTABLE, DATE/TIME OF EXAM: 10/13/2022 11:01 AM, LOCATION [facility] INDICATION: R53.1: Weakness ADDITIONAL CLINICAL INFORMATION: Ordering Provider Reason For Exam: MRI COMPARISON: None. TECHNIQUE: Supine frontal radiograph of the abdomen. FINDINGS: A looprecorder overlies the left axilla. No evidence of retained metallic density foreign bodies within the abdomen. The urinary bladder is opacified with contrast material. Moderate gas and stool are present. There are no findings to suggest bowel obstruction, free intraperitoneal gas or pneumatosis. Noabnormal calcifications are seen. No bone abnormality is seen. IMPRESSION: 1.A loop recorder overlies the left axilla. No evidence of retained metallic density foreign bodies within the abdomen. 2.Nonobstructive bowel gas pattern. Report dictated by Oscar Santizo M.D. (residential tech) 10/13/2022 11:03 AM IAdiel MD have personally reviewed and interpreted this examination/study. > Interpreting Provider: Adiel Lynn MD on 10/13/2022 1:03 PM XR CHEST 1VW PORTABLE Result Date: 10/13/2022 EXAMINATION: XR CHEST 1VW PORTABLE HISTORY: R06.00: Dyspnea, unspecified type E87.29: Respiratory acidosis COMPARISON: Chest radiograph 10/12/2022 FINDINGS/IMPRESSION: Lines: *Interval insertion of endotracheal tube which terminates in the proximal thoracic trachea, 6 cm from the cathi. *A loop recor manish superimposes the left chest. No confluent consolidation is noted. No pleural effusion is seen. No pneumothorax is identified. The heart is borderline enlarged. Aortic atherosclerosis is noted. The superior mediastinal contours are within normal limits. No acute osseous abnormality is identified. Report dictated by Oscar Santizo M.D. (residential tech) 10/13/2022 7:05 AM Adiel Orourke MD have personally reviewed and interpreted this examination/study. > Interpreting Provider: Adiel Lynn MD on 10/13/2022 11:[address] NECK SOFT TISSUE W CONT Result Date: 10/13/2022 PROCEDURE: CT NECK SOFT TISSUE W CONT, DATE/TIME OF EXAM: 10/13/2022 1:29 AM, LOCATION [facility] INDICATION: R06.00: Dyspnea, unspecified type ADDITIONAL CLINICAL INFORMATION: Ordering Provider Reason For Exam: Peritonsillar abscess Technologist Note: None. Additional: Per chart review, patient was difficult to intubate and multiple attempts were required. CONTRAST: IOPAMIDOL 76 % IV SOLN:75 mL EXAMINATION: Computed tomography (CT) of the neck with contrast TECHNIQUE: CT of theneck was performed following the uneventful administration of 75 mL Isovue-370 contrast according to standard protocol. CT dose reduction technique was used, including Automated Exposure Control. COMP ARISON: CT angiogram of the neck performed 10/30 [...] kenneth bullosa.. Paraseptal emphysema and lung scarring. IMPRESSION: 1.Findings concerning for right peritonsillar abscess with associated diffuse pharyngitis and extensive laryngeal edema, extending to the level of the supraglottic larynx, resulting in airway compromise status post endotracheal intubation. Preliminary findings were discussed with the patient's care provider, Dr. Brannon by Dr. Cleveland via telephone at 0248 on 10/13/2022 with readback comprehension and verification. > Dictated by Dean Cleveland M.D. (residential tech) Sundar Orourke MD have personally reviewed and interpreted this examination/study. > Interpreting Provider: Sundar Devine MD on 10/13/2022 10:[address] HEAD WO CONTRAST Result Date: 10/13/2022 PROCEDURE: CT HEAD WO CONTRAST, DATE/TIME OF EXAM: 10/13/2022 1:26 AM, LOCATION [facility] INDICATION: I63.9: Ischemic stroke ([facility]HCC) EXAMINATION: Computed tomography (CT) of the head without contrast ADDITIONAL CLINICAL INFORMATION: Ordering Provider Reason For Exam: Acute respiratory distress. R/o central causes Technologist Note: None. Additional: None. TECHNIQUE: CT of the head was performed without contrast according to standard protocol. CT dose reduction technique was used, including Automated Exposure Control. COMPARISON: CT of the head from 10/12/2022. FINDINGS: No acute intra- or extra-axial fluid collections are identified. There is mild cerebral volume loss with associated ex vacuo ventricular dilatation. The basilar cisterns are patent. No significant mass effect or midline shift is seen. There has been interval mild diffuse but subtle hypoattenuation and loss of orozco-white matter differentiation involving larger portions of the right frontal and right temp oral lobes as well as the right insula, and possibly posterior lateral temporal lobes which could represent acute evolving acute right MCA territory infarcts. MRI of the brain is recommended for further evaluation. Additional subtle hypoattenuation along the parasagittal right frontal lobe is also noted. Redemonstration of chronic infarcts with areas of encephalomalacia and gliosis in the right frontal and right parietal as well as the right occipital lobes compatible with chronic right MCA, SHEA, and BOARD MEMBER territory infarcts. Additional tiny lacunar infarcts in the bilateral cerebellar hemispheres are again noted. Periventricular white matter hypoattenuation is indicative of chronic small vess el ischemic disease. There is vascular calcification of the carotid siphons. No acute calvarial fracture is identified. Other than bilateral cataract extractions, the orbits appear normal. There is mild paranasal sinus disease. Opacification of the nasal passages and the nasopharynx. The patient is intubated. The mastoid air cells are grossly clear. Calcific densities along the left frontal scalpare again noted. No soft tissue abnormality is otherwise identified. IMPRESSION: 1.Suggestion of interval diffuse edema in the right MCA territory concerning for evolving right MCA territory ischemia. MRI of the brain is recommended for further evaluation.. 2.Additional chronic findings as outlined above. Results of this exam were communicated with closed loop confirmation to Dr. Mendenhall by Dr. Devine on 10/13/2022 at 9:54 AM with read back compression and verification. Report dictated by Romain Mckee MD, PhD (residential tech). I, Sundar Devine MD have personally reviewed and interpreted this examination/study. > Interpreting Provider: Sundar Devine MD on 10/13/2022 10:21 AM XR CHEST 1VW PORTABLE Result Date: 10/13/2022 EXAMINATION: XR CHEST 1VW PORTABLE HISTORY: R53.1: Weakness COMPARISON: Chest radiograph dated 12/11/2021 FINDINGS/IMPRESSION: Lines: *A loop recorder superimposes the left chest. No confluent consolidation is noted. No pleural effusion is seen. No pneumothorax is identified. The heart is enlarged for this AP view. Aortic atherosclerosis is noted. The superior mediastinal contours are within normallimits. No acute osseous abnormality is identified. No free air is seen under the diaphragm. > Interpreting Provider: CEDRIC FLORES MD on 10/13/2022 6:[address] ANGIO BRAIN NECK STROKE Result Date: 10/12/2022 EXAM: CT ANGIO BRAIN NECK STROKE, DATE/TIME OF EXAM: 10/12/2022 7:42 PM, LOCATION: [facility] HISTORY: Code Stroke EXAMINATION: CT angiogram images [...] right middle cerebral artery (MCA) via the [place] of [place]viz[place]/patent anterior communicating artery. Diminished opacification of the right MCA M1 segment and distal branches with notable markedly diminutive opacification versus nonopacification of the MCA M3 segment and beyond. No occlusion or hemodynamical ly significant stenosis elsewhere of the major intracranial arteries. Patent intracranial left ICA,left MCA, bilateral ACAs, vertebral artery V4 segments, [...] ARTERIES: No occlusion or hemodynamically significant stenosis. Noevidence of dissection. OTHER: Partially imaged lung apices [...] the right SHEA and MCA via the [place] of [place]vizu. Diminished opacification of the right [...] communication. Report dictated by Gilbert Morrow MD (residential tech). I, Zelda Willams MD, PhD have personally reviewed and interpreted this examination/study. > Interpreting Provider: Zelda Willams MD, PhD on 10/12/2022 8:[address] BRAIN - Stroke Result Date: 10/12/2022 EXAM: CT BRAIN STROKE, DATE/TIME OF EXAM: 10/12/2022 7:32 PM, LOCATION: [facility] HISTORY: Code Stroke EXAMINATION: CT scan of [...] PARENCHYMA: No acute parenchymal hemorrhage. Apparent hypodensity ofthe right anterior temporal lobe and insular region, which is nonspecific and may be attributable to motion artifact or possibly representing areas of evolving acute infarct. No mass effect, midline shift, or brain herniation. Re-demonstrated areas of encephalomalacia involving the right frontal and right parietal lobes, consistent with chronic infarcts involving the right middle cerebral artery ( MCA) vascular territory and right anterior cerebral artery (SHEA)/MCA watershed territory. Re-demonstrated area of encephalomalacia involving the right occipital lobe, consistent with a chronic infarct involving the right posterior cerebral artery (BOARD MEMBER) vascular territory. Multiple small chronic lacunes of [...] tissues. Mildly expansile soft tissue lesion of ofd-lv-cflfcnzran of the sella turcica measuring 2.1 x 1.6 cm (09/03), which is associated with thinning of thedorsum sellae and is incompletely assessed on this [...] infarct. Recommend follow-up brain MRI without contrast forfurther evaluation. 3.Multiple chronic infarcts of the right cerebral hemisphere and multiple smallchronic lacunes of the left greater than right cerebellar hemispheres as described. 4.Mildly expansile soft tissue lesion of the mid-to-left aspect of the sella turcica measuring 2.1 x 1.6 cm, which is associated with thinning of the dorsum sellae and is incompletely assessed on this examination. Recommend follow-up sella MRI without and with contrast. Results of this exam were verbally discussedby Dr. Zelda Willams with Dr. Brannon on 10/12/2022 at 7:44 PM for a Critical Stroke Protocol with readback confirmation and verification. The images were reviewed by attending physician Dr. Zelda Willamsprior to this communication. > Interpreting Provider: Zelda Willams MD, PhD on 10/12/2022 8:20 PM Assessment Mr. Esperanza Chaparro is a 67-year old man presenting on 10/12 from [facility] for left- sided flaccid weaknessconcerning for acute stroke. CTH showed acute stroke with chronic infarcts. CTA head and neck showed right ICA occlusion, previously identified in December 2021. TNK was administered ([id number] time 17 mins), but MT not pursued due to low ASPECT score. MRI showed right frontal, parietal, and temporal lobes consistent with known infarct in the right MCA and SHEA territories, with no hemorrhagic transformation. Stroke Type: Ischemic Stroke Mechanism: Hypovolemia on chronic R ICA occlusion Plan #R SHEA MCA territory stroke #R ICA occlusion #Hx of CVA Localization: Left-sided hemiparesis in upper and lower extremity consistent with injury to motor cortex vs internal capsule. Right gaze deviation and neglect on admission suggestive of cortical infarct. MRI confirmed SHEA and MCA territory stroke of right cerebral cortex. Mechanism: Given simultaenous infarct of both SHEA and MCA territories, an embolic mechanism is unlikely. Most likely hypovolemic episode in the setting of chronic R ICA occlusion resulted in ischemiato right cerebral cortex. Precipitating events could be due to vagus nerve stimulation from management of peritonsillar abscess vs sepsis. Plan: - CTH, CTA H/N, MRI Brain w/o contrast complete - TTE pending - HbA1C, Lipid Panel, Cardiac Enzymes - UA and UDS - Tele + neuro checks q4h - Head of bed >30 degrees - NPO until passes swallow - SBP goals 120-180 - Start aspirin 81 mg qD for secondary prevention - Neurosurgery consulted and following for possible decompressive hemicraniectomy #Peritonsillar abscess #Intubation - Pt needed to be intubated due to worsening respiratory acidosis and increasing O2 requirements - PEEP: 5, RR: 17, MAP: 7.7, O2%: 30 - Remainder of vitals stable - Currently heavily sedated on propofol following coughing fits Plan: - Continue Unasyn 3 g q6H IV - Wean O2 requirements as able - ENT performing needle aspiration and irrigation of incision with normal saline - CHEMISTRY PHYSICS TEACHER consulted and swallow study pending #T2DM - A1C (10/12): 7.7 - Overnight ranges (201-204) - 16 units lispro and 15 glargine administered today - 31 units Lispro administered yesterday Plan: - SSI - Accuchecks #BRYCE DDX: BRYCE vs BRYCE on CKD - Rising creatinine noted on labs today (10/14): 2.04, up from 1.2-1.4 - Likely BRYCE due to pt being NPO Plan: - TF started via OG tube - Monitor I&O's - Avoid nephrotoxic agents - IV normal saline #COPD - Hx of smoking, no PFTs on file - PFTs ordered Plan: - Duo-Nebs q4H - salmeterol q12H PRN Core Measures tPA administration: Yes Anti-thrombotic: plan for aspirin Statin: rosuvastatin 40 mg qD DVT prophylaxis: heparin 5000 U SC Swallow Evaluation: OG tube PT/OT Evaluation: pending Smoking cessation; will cancer genetic counselor: nicotine patch Individual Modifiable Risk Factors Hypertension: yes Hyperlipidemia: yes Diabetes: yes Atrial Fibrillation: no Tobacco: yes Case findings discussed with Dr. Jorge Hall, Stroke Attending. Cristian Sharma M3 * Derrick Churchill MD - 10/14/2022 11:55 AM CDT Procedure Note Procedure: Right Peritonsillar Needle Aspiration and Incision and Drainage. Indication: Tonsillar asymmetry, CT with concern for DIET AID vs intratonsillar abscess Note: Written consent for the procedure was obtained and in the patient's chart. Procedural sedation and paralysis was provided by the neurology ICU team. After medications had taken effect, the oropharynx was examined. The bilateral tonsils were edematous and ecchymotic with the right tonsil 2+ compared to 1+ on the left. A mouth gag was used to improve exposure. Needle aspiration was attempted in multiple locations without return of purulence. An incision was then made in the anterior pillar and the peritonsillar space was explored with a Ariella clamp. No purulence was encountered. The incision was irrigated with normal saline. The oral cavity was suctioned and the wound was left open for c ontinued drainage. Patient tolerated the procedure well. Derrick Churchill MD Otolaryngology - Head & Neck Surgery 10/14/2022 12:04 PM * Monae Nelson - 10/14/2022 11:34 AM CDT Neurology Critical Care Progress Note Esperanza Chaparro Age: [age] year old Date of : 1955 Date of Admission: 10/12/2022 Hospital Day: 2 Subjective Patient is a 67 year old male who is admitted to ICU for post-tNK monitoring. Hospital Course 67yo M with a history of ischemic stroke (2017 and 2021), prolactinoma, HTN, HLD, DM2, CAD and NSTEMI s/p stent, colon cancer, JAMES, smoking and COPD, who presented as a transfer from [facility] on 10/12 with concern for acute ischemic stroke. Patient was at [facility] on 10/12 with recently diagnosed peritonsillar abscess (treated with 5 days oral antibiotics, agent unspecified). Patient had dysphagia and dysarthria on initial evaluation. He was being prepared for discharge from the ED (lack of available beds), when the ED physician noticed left-sided weakness. Patient's mother and sister were later contacted and note that patient has had left weakness in his hand and leg (dropping things and falls whileusing walker) for the last several weeks but note that he was able to walk and the current degree of weakness is new. CTH at OSH ruled out bleed. Patient was transferred to ED for acute ischemic stroke workup and management. In [facility] ED, NIH score was 21 and patient had cortical signs (neglect, visual field cut, gaze deviation) prompting IVR activation. CTH demonstrated multiple hypodensities of the right hemisphere possibly representing areas of evolving acute infarct as well as multiple chronic infarcts. CTA demonstrated R ICA occlusion, which is chronic, seen in December 2021. IVR was cancelled d/t chronic nature of occlusion and low ASPECT score. Patient was given TNK after call to family for patient's baseline confirmed new focal deficits. Patient was admitted to [facility] for post-TNK monitoring. 10/13: Overnight, patient developed de-saturation to low 80s, hyperventilating and appearing obtundedon exam. ABG revealed mixed respiratory and non-gap metabolic acidosis. Patient required intubationin OR after failed attempts at bedside d/t airway edema. Afterwards, CT neck demonstrated bleeding with CTH negative for intracranial bleed. Interval History: No acute events overnight. Repeat CTH negative for bleed so heparin sc was started. ENT placed OGT and TF started. Objective Patient Vitals for the past 24 hrs: BP Temp Temp src Pulse Resp SpO2 10/14/22 1000 128/58 97.8 ??F (36.6 ??C) Axillary 62 20 92 % 10/14/22 0900 138/60 -- -- 54 19 95 % 10/14/22 0800 166/68 98 ??F (36.7 ??C) Axillary 79 20 98 % 10/14/22 0700 136/61 -- -- 50 15 95 % 10/14/22 0600 132/58 -- -- 49 15 95 % 10/14/22 0500 139/65 -- -- 45 15 95 % 10/14/22 0400 136/63 98.3 ??F (36.8 ??C) Oral 52 14 93 % 10/14/22 0300 128/55 -- -- 56 19 96 % 10/14/22 0200 128/52 98.3 ??F (36.8 ??C) Oral 47 15 95 % 10/14/22 0100 117/48 -- -- 52 16 98 % 10/14/22 0030 120/48 -- -- 47 15 100 % 10/13/22 2200 120/55 -- -- 51 (!) 0 95 % 10/13/22 2100 115/50 -- -- 56 (!) 5 94 % 10/13/22 2000 118/56 -- -- 55 15 93 % 10/13/22 1930 123/56 98.6 ??F (37 ??C) Oral 52 15 94 % 10/13/22 1900 129/60 -- -- 54 18 94 % 10/13/22 1800 114/54 98.3 ??F (36.8 ??C) Oral 54 15 91 % 10/13/22 1700 114/49 -- -- 56 15 93 % 10/13/22 1600 116/53 98.3 ??F (36.8 ??C) Oral 58 21 91 % 10/13/22 1500 118/55 -- -- 51 15 94 % 10/13/22 1400 132/65 98.3 ??F (36.8 ??C) Oral 54 15 94 % 10/13/22 1300 131/59 -- -- 50 15 94 % 10/13/22 1200 121/59 98.3 ??F (36.8 ??C) Oral 48 15 94 % Exam: Propofol paused. Patient intubated. Pupils: Right is briskly reactive; left unable to assess with pupillometer (dyscoria, likely 2/2 surgery). Opens right eye with noxious stimulus. Spontaneously moves R extremities, follows commands on right. Withdraws to pain on left side. Strength: 2/5 LUE, 2/5 LLE, 3/5 RUE, 4/5 RLE. No pronator drift on RUE. Corneal, cough, gag intact. Lungs: CTAx2 Heart: RRR, no murmurs. Assessment Esperanza Chaparro is a 67 year old male who presented 10/12 as a transfer from [facility] to [facility] ED with left-sided weakness, cortical signs, and NIHSS 21 with chronic R ICA occlusion and CTH evidence of multiple hypodensities in the right anterior temporal lobe and insula with repeat CTH after 6 hours demonstrating interval diffuse edema in the right MCA territory concerning for evolving acute infarct. Patient received TNK and was admitted to [facility] for post-tNK monitoring. MR brain 10/13 subsequently demonstrated late acute/ early subacute infarct in the R frontal, parietal, and temporal lobes consistent with known infarct in the R MCA and SHEA territories, no evidence of hemorrhagic transformation. Mechanism of acute stroke is likely large vessel (consider [id number] vs flow failure in setting of relative hypotension in this patient with long segment occlusion of the right ICA from the carotid bulb to the terminus with reconstitution of flow to the right SHEA and MCA via the [place] of [place]) vs cardioembolic given location of infarct in multiple vascular territories. Plan Neurological/psych #Acute infarct in the territory of the R MCA, SHEA, and small cerebellar infarct s/p TNK #Chronic R ICA occlusion on CTA - Post-tPA monitoring - Neuro + pupilometer checks q1h - Stat CT head for any change in neurological examination - Head of bed > 30?? - Avoid hyperthermia, hypoglycemia, hyponatremia - Start ASA - NSGY following for decompressive hemicraniectomy watch - Stroke workup for secondary prevention per stroke team. - SBP goal 120-180 Analgesia/sedation: - Wean propofol gtt. - Fentanyl 50mcg q1h PRN for CPOT > 2 #Encephalopathy, resolved - Consider multifactorial 2/2 hypoxia with mixed acidosis and relative hypotension (in this patientwith chronic R ICA occlusion) resulting in poor cerebral perfusion. - CTM with neuro checks q1h #Hx of ischemic stroke - Discharged on ASA and ticagrelol December 2021, currently only on ASA. SBP goal 140-160mmHg on discharge. - Start ASA 81mg QD - Resume home rosuvastatin 40mg QHS #Prolactinoma - per patient's mother and sister, pt not taking prescribed cabergoline Cardiovascular - sBP 114-139 - HR 45-79 #HTN - Home meds: coreg 6.25mg BID, lisinopril 10mg QD - SBP goal 120-180 - Re-start home coreg 3.125mg BID - Hemodynamic monitoring #Bradycardia, improving #First degree AV block - Sinus kristal on EKG 12/2021 - EKG 10/12/22 with first degree AV block - HR improving this morning with patient on SBT. - CTM #Troponinemia - Likely demand post stroke - peak of 72 on 10/13, since downtrending - EKst degree AV block, no VENKATA #CAD s/p stent (date unknown) #Hx of NSTEMI - Resume home ASA - Resume home rosuvastatin 40mg QD - Holding home nitroglycerin 0.3mg Respiratory SpO2 91-100% #Intubated for acute hypoxic hypercarbic respiratory failure #Airway obstruction 2/2 laryngeal abscess and airway edema s/p intubation c/b bleeding - Vent settings: SCMV Vt 440ml, PEEP 5, RR 15, FiO2 30% - Continue SBT today with weaning propofol. Assess cuff leak prior to attempting extubation in coming days. - Pt received 3 doses dexamethasone 10mg q8h for edema on 10/13. - VAP bundle - Aspiration precautions - Elevate head of bed - Maintain oxygen saturation > 88% - Monitor for respiratory distress #COPD - Home meds: Fluticasone/Salmeterol 100/50 1 inh BID PRN, Tiotropium 2.5 mcg/Actuat 60D 2 inh once a day, and Albuterol 90 mcg 2 puffs QID PRN - Continue budesonide 500mcg nebs QD - Continue duo-nebs q4h #JAMES - Consider CPAP post extubation Renal/Electrolytes - Na: 137 - Cr: 2.04 (1.4) - eGFR: 35 (55) - BUN: 52 (34) - Bicarb: 16 (18) - K: 5.2 (5.1) - M.7 (1.9) - Phos: 4.6 (3.5) Intake/Output Summary (Last 24 hours) at 10/14/2022 1137 Last data filed at 10/14/2022 0610 Gross per 24 hour Intake 770.17 ml Output 700 ml Net 70.17 ml #Mixed respiratory and non-anion gap metabolic acidosis, improving - ABG 10/13: pH 7.31 (7.12), pCO2 37 (62), pO2 134 (59), FiO2 50 (100). - Likely component of RTA 2/2 CKD in addition to respiratory acidosis, improving on ventilator (seeplan above). - F/u daily serum bicarb and renal function #BRYCE on CKD - Likely pre-renal injury in this patient who was NPO yesterday (prior to OGT 24hrs post TNK). BUN/Cr 25 - Start tube feeds with 100cc FWF q4h today, follow up renal function tomorrow AM. - CKD likely 2/2 DM and HTN - 24hr fluid intake: 770ml IVF - 24hr urine output: 700ml U - IV Fluids: none - Condom cath with bladder scanner +sc q6h - Monitor intake and output - Replete electrolytes as needed #Hyperkalemia - No changes on EKG - f/u daily BMP Infectious Disease - Tmax overnight 37C - WBCs 11.5 (15.1) #Leukocytosis #Peritonsillar Abscess - F/u daily CBC - Monitor for fevers - ENT following, attempted bedside drain, no fluid drained. Continue Unasyn (day 2/). Gastrointestinal #Dysphagia - CHEMISTRY PHYSICS TEACHER swallow evaluation pending - Diet: Vital high protein 45cc/hr + 100cc FWF q4h - Bowel Movements: 10/13 - GI Ppx: Protonix 40 IV - Bowel Regimen: miralax and senna Heme/Onc - Hb 11.5 (11.8) - Plateletes 174 (237) - PT 13.8 - INR 1.1 #Post TNK monitoring - DVT ppx: SCDs. Will start heparin sc if no bleed on repeat imaging 24hrs. Endocrine HbA1C 7.7 #DM2 #Hyperglycemia - BG 177-216mg/dl over 24hr (note pt received dexamethasone) - Home regimen: empagliflozin 25mg QD - Required 41units lispro yesterday, start Glargine 15U and continue accuchecks + SSI q4h - BG goal 140-180 #HLD - Start home rosuvastatin 40mg. Musculoskeletal No active issues. DVT prophylaxis: SCDs LDAs: ETT, condom cath, PIVs, OGT Disposition: NCC SW: pending PT/OT: pending Code Status: Full Patient's case was discussed & staffed w/ NCC Attending Dr. Luis Alberto Nelson MS4 Associated attestation - Adrianna Sahu MD - 10/14/2022 6:50 PM CDT Neurologic Critical Care Attending I spent 35 minutes in full attendance with this critically-ill patient. Time spent was exclusive ofseparately billed procedures, treating other patients, and teaching time. I have reviewed and agreewith resident/medical student documentation. The patient is at high risk for complications and morbidity or mortality. The patient is criticallyill with vital organ impairment of failure with high probability of imminent or life-threatening deterioration in the patient's condition. Critical care was necessary to treat or prevent life-threatening deterioration of the following: Ischemic stroke (CMS/HCC) (POA: Yes) Carotid occlusion, right (POA: Yes) Carotid stenosis, left (POA: Yes) Weakness (POA: Unknown) Coronary artery disease (POA: No) JAMES (obstructive sleep apnea) (POA: Yes) COPD (chronic obstructive pulmonary disease) (CMS/HCC) (POA: Unknown) Stage 3 chronic kidney disease (CMS/HCC) (POA: Unknown) Peritonsillar abscess (POA: Yes) Dyspnea (POA: Yes) Respiratory acidosis (POA: Yes) Hx of completed stroke (POA: Yes) DM2 (diabetes mellitus, type 2) (CMS/HCC) (POA: Yes) Primary hypertension (POA: Yes) Smoker (POA: Yes) The plan of care other than mentioned in resident/medical student note consists of: AIS. S/p TNK. Brain compression. Secondary stroke workup/prevention per stroke. Post TNK monitoringper protocol Close neuro monitoring in the ICU NSGY consulted for DHC watch Acute hypoxic and hypercarbic respiratory failure. ENT needle aspiration at bedside today. SAT and SBT without attempt for extubation today Peritonsillar abscess. Unasyn for 7days. Appreciate ENT recs DM. Adjust insulin to keep BG < 180 CKD. Montior UOP, replete lytes as needed Dysphagia. TF Adrianna Sahu MD Neurologic Critical Care Attending 10/14/2022 * Elsi Patterson RCP - 10/14/2022 10:35 AM CDT Transport Start Time: 1020 Transport Assisted by 2 RT's and 1 lining stamper From: 3N ICU Transport To: CT Total Transport Time: 20 mins Patient transported with HOB @ 30-45 degrees? yes Oral care performed & documented within 4 hours of transport on life support? yes Patient's oral cavity suctioned, including above the airway cuff, prior to transport? yes * Ehsan Kelly MD - 10/14/2022 10:24 AM CDT Otolaryngology Progress Note 10/14/22 SUBJECTIVE: TIMOTHY MORENO OBJECTIVE: Temp (30hrs) Max:98.6 ??F (37 ??C) Temp: [97.8 ??F (36.6 ??C)-98.6 ??F (37 ??C)] 97.8 ??F (36.6 ??C) Pulse: [45-79] 62 Resp: [0-21] 20 BP: (114-166)/(48-68) 128/58 O2 %: [30 %] 30 % Intake/Output Summary (Last 24 hours) at 10/14/2022 1024 Last data filed at 10/14/2022 0610 Gross per 24 hour Intake 770.17 ml Output 700 ml Net 70.17 ml PHYSICAL EXAM: GENERAL: intubated/sedated HEENT: ETT and OG in place, mild palatal fullness on the right. NECK: soft, no masses RESP: ventilated CV: Warm, cap refill <3 seconds. NEURO: sedated ASSESSMENT: 67 year old male with h/o CVA, HTN, HLD, DM, CAD s/p stenting, tobacco use, JAMES, and COPD, transferred to [facility] due to acute ischemic stroke, seen in consultation for concern for right peritonsillar abscess. CT neck obtained showing small right peritonsillar abscess/phlegmon. - Will plan for aspiration/drainage attempt later this morning Consent obtained from mother for incision and drainage of peritonsillar abscess and in chart. - Agree with Unasyn x7 days - Recommend waiting until cuff leak is present before proceeding with extubation trials. Page ENT or call [facility] [id number] with questions/concerns. Ehsan Kelly MD 10/14/22 * Jesica Cleveland - 10/14/2022 9:22 AM CDT Chart reviewed/Stroke Rounds Not medically ready to transition to next level of care Remains intubated No social work needs at this time NOHEMI España, [facility] [phone] 10/14/2022 9:22 AM * Marciano Dawson MD - 10/14/2022 8:09 AM CDT Neurosurgery Progress Note Esperanza Chaparro 10/14/22 Hospital Day: 2 Subjective: Patient is a 67 year old male s/p R MCA stroke, consulted for hemicrane watch. Significant Events: Objective: T: 98.3 ??F (36.8 ??C) [Temp Min: 97.4 ??F (36.3 ??C) Max: 98.6 ??F (37 ??C)] BP: 136/61[BP Min: 114/54 Max: 139/65] MAP: 84[MAP (mmHg) Min: 68 Max: 88] HR: 50[Pulse Min: 45 Max: 58] RR: 15[Resp Min: 0 Max: 21] Sat: 95 %[SpO2 Min: 91 % Max: 100 %] ICP: [No data recorded] EVD: none Input/Output: 10/13 07 - 10/14 07 In: 770.2 [I.V.:770.2] Out: 700 [Urine:700] MONTSE/Other Drain: none Respiratory: PEEP/CPAP: 5 cm H20 OBSERVED PEAK INSPIRATORY PRESSURE (cm H2O): 23 cm H2O SET TIDAL VOLUME (mL): 440 ML EXHALED TIDAL VOLUME (ml): 731 ml Labs: Recent Labs Component Name 10/14/22 011 WBC 11.5* HGB 11.3* HCT 35.0* PLTCOUNT 174 Recent Labs Component Name 10/14/228 NA 137 POTASSIUM 5.2* CO2 16* BUN 52* CREATININE 2.04* CALCIUM 8.8 GLUCOSE 198* Recent Labs Component Name 10/12/22202001/19/22 0948 12/11/21 1227 INR 1.1 - 1.0 PTT - - 35.2 - = values in this interval not displayed. Imaging: MRI complete, shows R ICA and MCA territory stroke, little mass effect Diet: DIET NPO Except: NO EXCEPTIONS DIET TUBE FEEDING CONTINUOUS Fluids: Per primary MEDICATIONS FOR CURRENT ENCOUNTER: ?? SCHEDULED MEDICATIONS: ?? 0.9% NaCl injection 3 mL, Intracatheter, q8h ?? 0.9% NaCl injection 3 mL, Intracatheter, q8h ?? albuterol-ipratropium (Duo-Neb) nebulizer solution 3 mL, Inhalation, q4h ?? ampicillin-sulbactam (Unasyn) 3 g in 0.9% NaCl IV 100 mL IVPB, Intravenous, q6h ?? artificial tears ophthalmic ointment, Each Eye, q8h ?? budesonide (Pulmicort) nebulizer suspension 500 mcg, Inhalation, QDAY ?? chlorhexidine (Peridex) 0.12 % oral solution 15 mL, Mouth/Throat, BID ?? heparin injection 5,000 Units, Subcutaneous, q8h ?? insulin lispro (HumaLOG;ADMelog) 100 UNIT/ML pen 0-24 Units, Subcutaneous, q4h ?? iopamidol (Isovue 370) 76 % contrast, Intravenous, Contrast - Once ?? iopamidol (Isovue 370) 76 % contrast, Intravenous, Contrast - Once ?? nicotine (Nicoderm CQ) patch 21 mg, Transdermal, QDAY ?? pantoprazole (Protonix) injection 40 mg, Intravenous, QDAY ?? polyethylene glycol 3350 (Miralax) packet 17 g, Enteral Tube, QDAY ?? rosuvastatin (Crestor) tablet 40 mg, Oral, QDAY ?? senna-docusate (Senokot-S) tablet 1 tablet, Enteral Tube, QDAY ?? [COMPLETED] dexAMETHasone (Decadron) injection 10 mg, Intravenous, q8h ?? [] magnesium sulfate 2 g in 50 mL bolus, Intravenous, Once ?? CONTINUOUS MEDICATIONS: ?? propofol (Diprivan) infusion, Intravenous, Continuous ?? PRN MEDICATIONS: ?? Or ?? 0.9% NaCl injection 1-10 mL, Intracatheter, PRN ?? 0.9% NaCl injection 3 mL, Intracatheter, PRN ?? acetaminophen (Tylenol) suppository 650 mg, Rectal, q4h PRN ?? albuterol (Proventil;Ventolin) (2.5 MG/3ML) 0.083% nebulizer solution 2.5 mg, Inhalation, q6h PRN ?? dextrose 10 % IV bolus, Intravenous, PRN ?? dextrose 10 % IV bolus, Intravenous, PRN ?? fentaNYL (PF) (Sublimaze) injection 50 mcg, Intravenous, q1h PRN ?? glucagon (Glucagen) injection 1 mg, Subcutaneous, PRN ?? glucose (Diabetic Use) (Dex4 Glucose) oral liquid, Oral, PRN ?? glucose (Diabetic Use) oral gel, Oral, PRN ?? glucose chew tablet 4 tablet, Oral, PRN ?? labetalol (Normodyne; Trandate) injection 10 mg, Intravenous, q15 min PRN ?? labetalol (Normodyne; Trandate) injection 10 mg, Intravenous, q15 min PRN ?? salmeterol (Serevent) 50 MCG/ACT diskus inhaler 1 puff, Inhalation, q12h PRN General: intubated Neuro: GCS 9T (E2VTM6), +cough, +corneals, od3r, os3r, Follows commands in RUE RLE LLE, withdraws LUE weakly. Assessment: 67 year old male s/p old R ICA stroke with new R MCA stroke consulted for hemicrane watch. Intubated for respiratory compromise, but following commands. Plan: - Continue to monitor neurologic exam - Will continue to follow for christy watch - Overall care per stroke - Page Neurosurgery and obtain STAT head CT with decline in neuro exam Marciano Dawson MD 8:09 AM 10/14/22 * Amber Baez RN - 10/14/2022 2:25 AM CDT Problem: Pain/Discomfort Goal: Patient exhibits reduced pain/discomfort as evidenced by pain scores Outcome: Progressing Problem: Safety related to restraint use Goal: Absence of injury while restrained Outcome: Progressing Problem: Neurological Deficit Goal: Neurological status is stable or improving Outcome: Progressing Problem: Hemodynamic Status/Cardiac Output Goal: Patient has stable vital signs and fluid balance Outcome: Progressing Problem: Oxygenation/Respiratory Function Goal: Respiratory rate/effort will be within specified limits Outcome: Progressing * Paz Brannon MD - 10/13/2022 8:55 PM CDT 8:[address] head wo contrast demonstrated large right SHEA and MCA territories. Chemical DVT ppx was started following CT head. Antiplatelet therapy will be held until tomorrow. Brain MRI wo contrast will be obtained at midnight. Neurosurgery was consulted for possible decompressive hemicraniectomy. I attempted to call both, patient's mother and sister but no one picked up the phone. 9:19 PM ENT was contacted for OG tube placement under endoscopy. ENT resident on-call recommended to place an OG tube without any assistance due to no concern for abscess. OG tube order is placed. 10:52 PM OG tube is in place and patient was started on TF. Final NSGY recommendations pending. 4:[address] head order was placed for follow-up. Brain MRI demonstrated diffusion restrictionin both right SHEA and MCA territories along with right cerebellum which indicates embolic nature ofthe stroke. * Kelly Hernández PT - 10/13/2022 3:48 PM CDT [facility] Department of Physical Medicine & Rehabilitation Progress Note Patient: Esperanza Chaparro Med Record Number: [id number] Date of : 1955 Age: [age] year old 10/13/22 1500 Therapy on Hold Therapy on Hold Chart Reviewed;Surgery;New Order Required for Therapy (to OR for reintubation) * Jorge Hall MD - 10/13/2022 2:06 PM CDT The above note was reviewed. The patient was seen and examined. I would add the following: I saw and examined the patient with the resident and/or medical student and/or nurse practitioner. I have verified all details of the note and agree with his/her documentation with additions and modifications as listed in my separate note. Please refer to the resident's, medical student's, or nursepractitioner's note for plans of active problems not discussed in this note. 67M with hx of right ICA occlusion and R MCA infarction and peritonsillar abcess presented on 10/12 to the [place] ED for somnolence, left-sided hemiplegia and right- sided gaze deviation. Upon arrival to [place] S/p TNK and intubation for respiratory distress. Angiogram 01/2022 showed R ICA occlusion. Admitted to ICU. - MRI brain p - Will start DAPT after 24 hours - Continue Lipitor - Consulted ENT for the abscess MEDICATIONS FOR CURRENT ENCOUNTER: ?? SCHEDULED MEDICATIONS: ?? *Hold/Avoid Medication, Other, 0800 and 1999 ?? *Hold/Avoid Medication, Other, DIRECTED ?? 0.9% NaCl injection 3 mL, Intracatheter, q8h ?? 0.9% NaCl injection 3 mL, Intracatheter, q8h ?? albuterol-ipratropium (Duo-Neb) nebulizer solution 3 mL, Inhalation, q4h ?? ampicillin-sulbactam (Unasyn) 3 g in 0.9% NaCl IV 100 mL IVPB, Intravenous, q6h ?? artificial tears ophthalmic ointment, Each Eye, q8h ?? budesonide (Pulmicort) nebulizer suspension 500 mcg, Inhalation, QDAY ?? chlorhexidine (Peridex) 0.12 % oral solution 15 mL, Mouth/Throat, BID ?? dexAMETHasone (Decadron) injection 10 mg, Intravenous, q8h ?? insulin lispro (HumaLOG;ADMelog) 100 UNIT/ML pen 0-24 Units, Subcutaneous, q4h ?? iopamidol (Isovue 370) 76 % contrast, Intravenous, Contrast - Once ?? iopamidol (Isovue 370) 76 % contrast, Intravenous, Contrast - Once ?? nicotine (Nicoderm CQ) patch 21 mg, Transdermal, QDAY ?? pantoprazole (Protonix) injection 40 mg, Intravenous, QDAY ?? polyethylene glycol 3350 (Miralax) packet 17 g, Enteral Tube, QDAY ?? senna-docusate (Senokot-S) tablet 1 tablet, Enteral Tube, QDAY ?? [COMPLETED] 0.9% NaCl injection 10 mL, Intracatheter, Once ?? [COMPLETED] magnesium sulfate 2 g in 50 mL bolus, Intravenous, Once ?? [COMPLETED] morphine injection 4 mg, Intravenous, Once ?? [COMPLETED] tenecteplase (TNKase) injection 25 mg, Intravenous, Once ?? [] magnesium sulfate 2 g in 50 mL bolus, Intravenous, Once ?? CONTINUOUS MEDICATIONS: ?? propofol (Diprivan) infusion, Intravenous, Continuous ?? PRN MEDICATIONS: ?? Or ?? 0.9% NaCl injection 1-10 mL, Intracatheter, PRN ?? 0.9% NaCl injection 3 mL, Intracatheter, PRN ?? acetaminophen (Tylenol) suppository 650 mg, Rectal, q4h PRN ?? albuterol (Proventil;Ventolin) (2.5 MG/3ML) 0.083% nebulizer solution 2.5 mg, Inhalation, q6h PRN ?? dextrose 10 % IV bolus, Intravenous, PRN ?? dextrose 10 % IV bolus, Intravenous, PRN ?? fentaNYL (PF) (Sublimaze) injection 50 mcg, Intravenous, q1h PRN ?? glucagon (Glucagen) injection 1 mg, Subcutaneous, PRN ?? glucose (Diabetic Use) (Dex4 Glucose) oral liquid, Oral, PRN ?? glucose (Diabetic Use) oral gel, Oral, PRN ?? glucose chew tablet 4 tablet, Oral, PRN ?? labetalol (Normodyne; Trandate) injection 10 mg, Intravenous, q15 min PRN ?? labetalol (Normodyne; Trandate) injection 10 mg, Intravenous, q15 min PRN ?? salmeterol (Serevent) 50 MCG/ACT diskus inhaler 1 puff, Inhalation, q12h PRN Patient Vitals for the past 24 hrs: Temp Pulse Resp BP 10/13/22 1300 -- 50 15 131/59 10/13/22 1200 98.3 ??F (36.8 ??C) 48 15 121/59 10/13/22 1100 -- 49 15 118/59 10/13/22 1000 97.4 ??F (36.3 ??C) 52 14 126/63 10/13/22 0900 -- 50 12 117/58 10/13/22 0800 97.9 ??F (36.6 ??C) 53 15 115/54 10/13/22 0715 -- 53 15 115/55 10/13/22 0700 -- 53 15 107/52 10/13/22 0645 -- 55 15 107/51 10/13/22 0630 97.5 ??F (36.4 ??C) 56 15 100/77 10/13/22 0615 -- 53 (!) 5 105/57 10/13/22 0600 -- 53 18 113/51 10/13/22 0545 -- 53 (!) 8 115/54 10/13/22 0534 -- 52 (!) 6 107/53 10/13/22 0515 -- 51 (!) 5 102/47 10/13/22 0500 -- 54 14 105/48 10/13/22 0445 -- 53 (!) 5 109/49 10/13/22 0430 -- 53 (!) 0 113/71 10/13/22 0415 -- 50 (!) 4 116/61 10/13/22 0400 -- 54 (!) 4 116/68 10/13/22 0345 -- 52 (!) 3 113/56 10/13/22 0330 -- 54 10 126/56 10/13/22 0315 -- 55 (!) 0 113/63 10/13/22 0300 -- 63 15 107/63 10/13/22 0245 -- 56 (!) 3 110/62 10/13/22 0230 97.4 ??F (36.3 ??C) 58 (!) 7 102/57 10/13/22 0215 -- 60 15 106/59 10/13/22 0200 -- 64 30 127/60 10/13/22 0145 -- 77 (!) 41 (!) 172/100 10/13/22 0013 -- 81 18 (!) 180/86 10/13/22 0000 -- 82 21 (!) 180/96 10/12/22 2345 -- 85 23 (!) 165/126 10/12/22 2330 -- 72 22 (!) 197/80 10/12/22 2315 -- 68 18 173/75 10/12/22 2300 -- 73 25 95/81 10/12/22 2250 -- 70 -- (!) 184/82 10/12/22 2245 -- 72 21 (!) 184/82 10/12/22 2225 97.4 ??F (36.3 ??C) 81 -- (!) 198/90 10/12/22 2133 98.3 ??F (36.8 ??C) 69 17 169/83 10/12/225 -- 67 18 175/88 10/12/222122 -- 72 20 (!) 181/87 10/12/222117 98.3 ??F (36.8 ??C) 79 20 (!) 196/90 10/12/222102 98.2 ??F (36.8 ??C) 72 18 167/88 10/12/222099 -- 61 12 167/88 10/12/222054 -- 60 12 170/73 10/12/222047 98.3 ??F (36.8 ??C) 70 18 170/73 10/12/222043 -- 96 -- (!) 194/93 10/12/222042 -- 96 19 (!) 191/92 10/12/222032 98.2 ??F (36.8 ??C) -- 21 (!) 177/107 10/12/222018 98.3 ??F (36.8 ??C) 74 20 167/73 10/12/222017 98 ??F (36.7 ??C) 80 20 167/73 10/12/222003 98 ??F (36.7 ??C) 62 18 151/68 10/12/221999 -- 61 17 153/72 10/12/221948 98.6 ??F (37 ??C) 60 -- 131/70 10/12/22 193 98.2 ??F (36.8 ??C) 58 18 137/64 10/12/22 191 98 ??F (36.7 ??C) 56 19 136/97 Intake/Output Summary (Last 24 hours) at 10/13/2022 1406 Last data filed at 10/13/2022 1309 Gross per 24 hour Intake 578.99 ml Output 200 ml Net 378.99 ml Labs: Recent Labs Component Name 10/13/22 0228 12/12/21 0205 CHOL 148 188 TRIG 117 216* HDL 40* 33* LDLCALC 85 112* Recent Labs Component Name 10/12/22223012/11/21 1227 HGBA1C 7.7* 7.1* Recent Labs Component Name 10/12/22235210/12/22202210/12/22202001/19/22 0948 12/14/21 0255 12/13/21 0149 NA 137 137 135* 137 136 137 POTASSIUM 5.1* 3.3* 5.2* 4.8* 5.5* 4.1 CL 110* 120* 109* 102 100 98 CO2 18* 13* 16* 27 22 24 BUN 34* 27* 34* 21 22 21 CREATININE 1.40* 0.91 1.36* 1.26* 1.40* 1.32* CALCIUM 9.4 5.8* 9.1 9.9 9.6 9.4 MAGNESIUM 1.9 - 1.8 - 1.6 1.6 PHOS 3.5 - 2.8 - 3.7 3.5 Recent Labs Component Name 10/13/2253410/12/22235201/19/2294712/14/2125412/13/21 014 WBC 15.1* 22.0* 8.5 7.8 6.2 HGB 11.8* 13.4 12.7 12.0 11.6* HCT 35.4 41.3 38.6 36.2 34.9* PLTCOUNT - 237 237 260 246 RBC 4.01* 4.62 4.50 4.18* 4.06* Recent Labs Component Name 10/12/22202001/19/2248 12/11/21 1227 PT 13.8 12.4 13.0 INR 1.1 0.9 1.0 PTT - - 35.2 Recent Labs Component Name 10/13/2235 10/13/2222710/12/222352 PH 7.31* 7.28* 7.12* PCO2 37 40 62* PO2 134* 115* 59* FIO2 50.0 50.0 100.0 Patient Vitals for the past 24 hrs: Glucose Bedside (mg/dL) 10/12/22 1912 285 mg/dL Micro: Microbiology Results (Displays last 21 days for this encounter ONLY) No results found for the last 504 hours. Length of stay: 1 Problem List Ischemic stroke (CMS/HCC) (POA: Yes) Carotid occlusion, right (POA: Yes) Carotid stenosis, left (POA: Yes) Weakness (POA: Unknown) Coronary artery disease (POA: No) JAMES (obstructive sleep apnea) (POA: Yes) COPD (chronic obstructive pulmonary disease) (CMS/HCC) (POA: Unknown) Stage 3 chronic kidney disease (CMS/HCC) (POA: Unknown) Peritonsillar abscess (POA: Yes) Dyspnea (POA: Yes) Respiratory acidosis (POA: Yes) Hx of completed stroke (POA: Yes) DM2 (diabetes mellitus, type 2) (CMS/HCC) (POA: Yes) Primary hypertension (POA: Yes) Smoker (POA: Yes) Present on Admission: ??? Ischemic stroke (CMS/HCC) ??? DM2 (diabetes mellitus, type 2) (CMS/HCC) ??? Hx of completed stroke ??? Primary hypertension ??? Smoker ??? Carotid occlusion, right ??? Carotid stenosis, left ??? JAMES (obstructive sleep apnea) ??? Peritonsillar abscess ??? Dyspnea ??? Respiratory acidosis Routine multidisciplinary rounds were completed today with the presence of the primary team staff, residents, PT/OT/CHEMISTRY PHYSICS TEACHER and CM/SW. Jorge Hall MD Vascular and Interventional Neurology * Fredis Samuels RN - 10/13/2022 1:19 PM CDT Stroke Psychosocial Assessment Case Management Screen completed, welcome letter given Met with mother and sister Lives with: Sister Diagnosis: The primary encounter diagnosis was Weakness. Diagnoses of Ischemic stroke (CMS/HCC), Left-sided weakness, Dyspnea, unspecified type, and Respiratory acidosis were also pertinent to this visit. Contacts/Support: Extended Emergency Contact Information Primary Emergency Contact: DenizClarita Relation: Mother Secondary Emergency Contact: Nichelle Varghese Relation: Sister Insurance: Payer/Plan Subscriber Name Rel Member # Group # [employer] ESPERANZA CHAPARRO FRANKY Self [id number] [id number] Prior level of functioning: Cognition: A/O x 4 Mental Health History: denies Employment/income status: Disabled Alcohol/Drug/Tobacco: Current smoker, denies etoh and drugs Prior Stroke: yes Co-morbidities: Smoker, HTN Medication Needs: [place] Established Resources: Community Resource Contact Information: Referral: Yes If patient requires HHC at discharge, he/she requests: Anticipated level of care provider: None Equipment at Home: [employer] Whe[employer] Current DME Provider: Recommended/Needed DME: PCP: Ly Valenzuela MD If no PCP, action taken: Transportation: (to be determined) Coping Strengths: Short Term Goals: Prison Goals: Family/Support included in planning:Yes Patient and Family Questions/Concerns: none Discharge Plan: Anticipated level of care at discharge: Home, Acute Rehab Facility Anticipated Discharge Date: 10/20/22 Fredis Samuels RN Phone: [phone] 10/13/2022 * Monae Nelson - 10/13/2022 11:24 AM CDT Neurology Critical Care Progress Note Esperanza Chaparro Age: [age] year old Date of : 1955 Date of Admission: 10/12/2022 Hospital Day: 1 Subjective Patient is a 67 year old male who is admitted to ICU for post-tNK monitoring. Hospital Course 67yo M with a history of ischemic stroke (2017 and 2021), prolactinoma, HTN, HLD, DM2, CAD and NSTEMI s/p stent, colon cancer, JAMES, smoking and COPD, who presented as a transfer from [facility] on 10/12 with concern for acute ischemic stroke. Patient was at [facility] on 10/12 with recently diagnosed peritonsillar abscess (treated with 5 days oral antibiotics, agent unspecified). Patient had dysphagia and dysarthria on initial evaluation. He was being prepared for discharge from the ED (lack of available beds), when the ED physician noticed left-sided weakness. Patient's mother and sister were later contacted and note that patient has had left weakness in his hand and leg (dropping things and falls whileusing walker) for the last several weeks but note that he was able to walk and the current degree of weakness is new. CTH at OSH ruled out bleed. Patient was transferred to ED for acute ischemic stroke workup and management. In [facility] ED, NIH score was 21 and patient had cortical signs (neglect, visual field cut, gaze deviation) prompting IVR activation. CTH demonstrated multiple hypodensities of the right hemisphere possibly representing areas of evolving acute infarct as well as multiple chronic infarcts. CTA demonstrated R ICA occlusion, which is chronic, seen in December 2021. IVR was cancelled d/t chronic nature of occlusion and low ASPECT score. Patient was given TNK after call to family for patient's baseline confirmed new focal deficits. Patient was admitted to [facility] for post-TNK monitoring. Interval History: Overnight, patient developed de-saturation to low 80s, hyperventilating and appearing obtunded on exam. ABG revealed mixed respiratory and non-gap metabolic acidosis. Patient required intubation in OR after failed attempts at bedside d/t airway edema. Afterwards, CT neck demonstrated bleeding with CTH negative for intracranial bleed. Objective Patient Vitals for the past 24 hrs: BP Temp Temp src Pulse Resp SpO2 Height Weight 10/13/22 1500 118/55 -- -- 51 15 94 % -- -- 10/13/22 1400 132/65 98.3 ??F (36.8 ??C) Oral 54 15 94 % -- -- 10/13/22 1300 131/59 -- -- 50 15 94 % -- -- 10/13/22 1200 121/59 98.3 ??F (36.8 ??C) Oral 48 15 94 % -- -- 10/13/22 1100 118/59 -- -- 49 15 94 % -- -- 10/13/22 1000 126/63 97.4 ??F (36.3 ??C) Axillary 52 14 96 % -- -- 10/13/22 0900 117/58 -- -- 50 12 97 % -- -- 10/13/22 0800 115/54 97.9 ??F (36.6 ??C) Oral 53 15 98 % -- -- 10/13/22 0726 -- -- -- -- -- -- 1.778 m (5' 10 ) -- 10/13/22 0715 115/55 -- -- 53 15 98 % -- -- 10/13/22 0700 107/52 -- -- 53 15 98 % -- -- 10/13/22 0645 107/51 -- -- 55 15 99 % -- -- 10/13/22 0630 100/77 97.5 ??F (36.4 ??C) Axillary 56 15 98 % -- -- 10/13/22 0615 105/57 -- -- 53 (!) 5 99 % -- -- 10/13/22 0600 113/51 -- -- 53 18 99 % -- -- 10/13/22 0545 115/54 -- -- 53 (!) 8 99 % -- -- 10/13/22 0534 107/53 -- -- 52 (!) 6 99 % -- -- 10/13/22 0515 102/47 -- -- 51 (!) 5 99 % -- -- 10/13/22 0500 105/48 -- -- 54 14 99 % -- -- 10/13/22 0445 109/49 -- -- 53 (!) 5 98 % -- -- 10/13/22 0430 113/71 -- -- 53 (!) 0 99 % -- -- 10/13/22 0415 116/61 -- -- 50 (!) 4 98 % -- -- 10/13/22 0400 116/68 -- -- 54 (!) 4 98 % -- -- 10/13/22 0348 -- -- -- -- -- -- -- 106 kg (233 lb 11 oz) 10/13/22 0345 113/56 -- -- 52 (!) 3 97 % -- -- 10/13/22 0330 126/56 -- -- 54 10 99 % -- -- 10/13/22 0315 113/63 -- -- 55 (!) 0 98 % -- -- 10/13/22 0300 107/63 -- -- 63 15 96 % -- -- 10/13/22 0245 110/62 -- -- 56 (!) 3 98 % -- -- 10/13/22 0230 102/57 97.4 ??F (36.3 ??C) Oral 58 (!) 7 97 % -- -- 10/13/22 0215 106/59 -- -- 60 15 97 % -- -- 10/13/22 0200 127/60 -- -- 64 30 97 % -- -- 10/13/22 0145 (!) 172/100 -- -- 77 (!) 41 96 % -- -- 10/13/22 0013 (!) 180/86 -- -- 81 18 92 % -- -- 10/13/22 0000 (!) 180/96 -- -- 82 21 (!) 84 % -- -- 10/12/22 2345 (!) 165/126 -- -- 85 23 (!) 82 % -- -- 10/12/22 2339 -- -- -- -- -- (!) 83 % -- -- 10/12/22 2330 (!) 197/80 -- -- 72 22 (!) 89 % -- -- 10/12/22 2315 173/75 -- -- 68 18 98 % -- -- 10/12/22 2300 95/81 -- -- 73 25 (!) 87 % -- -- 10/12/22 225 (!) 184 -- -- 70 -- -- -- -- 10/12/22 224 (!) 184 -- -- 72 21 91 % -- -- 10/12/22 2225 (!) 198/90 97.4 ??F (36.3 ??C) Oral 81 -- -- -- -- 10/12/222132 169/83 98.3 ??F (36.8 ??C) Temporal 69 17 93 % -- -- 10/12/222124 175/ -- -- 67 18 93 % -- -- 10/12/222122 (!) 181 -- -- 72 20 94 % -- -- 10/12/222117 (!) 196/90 98.3 ??F (36.8 ??C) Temporal 79 20 94 % -- -- 10/12/222102 98.2 ??F (36.8 ??C) Temporal 72 18 95 % -- -- 10/12/22 2100 167 -- -- 61 12 95 % -- -- 10/12/222054 17073 -- -- 60 12 94 % -- -- 10/12/222047 170/73 98.3 ??F (36.8 ??C) Temporal 70 18 94 % -- -- 10/12/222043 (!) 194/93 -- -- 96 -- -- -- -- 10/12/222042 (!) 191/92 -- -- 96 19 95 % -- -- 10/12/222032 (!) 177/107 98.2 ??F (36.8 ??C) Temporal -- 21 94 % -- -- 10/12/222018 167/73 98.3 ??F (36.8 ??C) Temporal 74 20 94 % -- -- 10/12/222017 167/73 98 ??F (36.7 ??C) Temporal 80 20 95 % -- -- 10/12/222003 151/68 98 ??F (36.7 ??C) Temporal 62 18 94 % -- -- 10/12/221999 153/72 -- -- 61 17 95 % -- -- 10/12/221948 131/70 98.6 ??F (37 ??C) Temporal 60 -- 94 % -- -- 10/12/221933 137/64 98.2 ??F (36.8 ??C) Temporal 58 18 94 % -- -- 10/12/221925 -- -- -- -- -- -- -- 103 kg (227 lb) 10/12/221911 136/97 98 ??F (36.7 ??C) Temporal 56 19 92 % -- -- Exam: Propofol paused. Patient intubated. Pupils: Right is reactive; left unable to assess with pupillometer (dyscoria, likely 2/2 surgery). Spontaneously moves R extremities, follows commands on right. Withdraws to pain on left side. Corneal, cough, gag intact. Assessment Esperanza Chaparro is a 67 year old male who presented 10/12 as a transfer from [facility] to [facility] ED with left-sided weakness, cortical signs, and NIHSS 21 with CTH evidence of multiple hypodensities in the rightanterior temporal lobe and insula with repeat CTH after 6 hours demonstrating interval diffuse edema in the right MCA territory concerning for evolving right MCA territory ischemia, MR brain pending.Patient received TNK and was admitted to [facility] for post-tNK monitoring. Mechanism of acute stroke is likely large vessel (consider flow failure in setting of relative hypotension) vs cardioembolic. Plan Neurological/psych #Concern for acute R MCA infarct #Chronic R ICA occlusion on CTA #Post TNK care - Post-tPA monitoring - Neurological checks q1h - Stat CT head for any change in neurological examination - Follow up MR Brain and pursue further workup accordingly. - Head of bed > 30?? - Avoid hyperthermia, hypoglycemia, hyponatremia - Hold ASA and heparin until repeat imaging 24 hours post tPA - BP goal <180/105 post TNK Analgesia/sedation: - Wean propofol gtt. - Fentanyl 50mcg q1h PRN for CPOT > 2 #Encephalopathy, improved - Consider multifactorial 2/2 hypoxia with mixed acidosis and relative hypotension (in this patientwith chronic R ICA occlusion) resulting in poor cerebral perfusion. - Follow up MR Brain #Hx of ischemic stroke - Discharged on ASA and ticagrelol December 2021, currently only on ASA. SBP goal 140-160mmHg on discharge. - Hold antithrombotics for 24hrs post tPA. - Hold home rosuvastatin until enteral access. 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 - PRN labetalol IV for goals above (hydralazine allergy?) - Hemodynamic monitoring #Bradycardia, chronic #First degree AV block - Sinus kristal on EKG 12/2021 - EKG 10/12/22 with first degree AV block - Holding home coreg. #Troponinemia - Likely demand post stroke - Elevated at 72 on 10/13, previously wnl - Trend q3h - EKst degree AV block, no VENKATA #CAD s/p stent (date unknown) #Hx of NSTEMI - troponins wnl x2, obtain 3rd measurement. - Hold home ASA for 24hrs post TNK - Holding home rosuvastatin 40mg QHS and nitroglycerin 0.3mg until enteral access. Respiratory SpO2 82-99% #Intubated for acute respiratory failure #Airway edema s/p intubation c/b bleeding - Episode of de-sat to low 80% with worsening of exam 6/5 with ABGs revealing mixed respiratory andrenal acidosis requiring urgent intubation, failed at bedside, performed in OR c/b bleeding. - Vent settings: SCMV Vt 440ml, PEEP 5, RR 15, FiO2 30% - Attempt SBT with weaning propofol. Assess cuff leak prior to attempting extubation. - Start dexamethasone 10mg q8h for edema. - VAP bundle - Aspiration precautions - Elevate head of bed - Maintain oxygen saturation > 88% - Monitor for respiratory distress #COPD - Home meds: Fluticasone/Salmeterol 100/50 1 inh BID PRN, Tiotropium 2.5 mcg/Actuat 60D 2 inh once a day, and Albuterol 90 mcg 2 puffs QID PRN - Start budesonide 500mcg nebs QD - Start duo-nebs q4h #JAMES - Consider CPAP post extubation Renal/Electrolytes - Na: 137 - Cr: 1.4 - eGFR: 55 - BUN: 34 - Bicarb: 18 - K: 5.1 - M.9 - Phos: 3.5 Intake/Output Summary (Last 24 hours) at 10/13/2022 1514 Last data filed at 10/13/2022 1434 Gross per 24 hour Intake 578.99 ml Output 900 ml Net -321.01 ml #Mixed respiratory and non-anion gap metabolic acidosis, improving - ABG: pH 7.31 (7.12), pCO2 37 (62), pO2 134 (59), FiO2 50 (100). - Likely component of RTA 2/2 CKD in addition to respiratory acidosis, improving on ventilator (seeplan above). - F/u daily serum bicarb and renal function #CKD - Likely 2/2 DM and HTN - 24hr fluid intake: 228 IVF - 24hr urine output: 700ml U - IV Fluids: none - Condom cath with bladder scanner q6h - Monitor intake and output - Replete electrolytes as needed #Hyperkalemia - No changes on EKG - CTM Infectious Disease - Tmax overnight 98.6 - WBCs 15.1 #Leukocytosis #Peritonsillar Abscess - F/u daily CBC - Monitor for fevers - ENT following, recommended continue Unasyn 7 days, no intervention. Gastrointestinal #Dysphagia - CHEMISTRY PHYSICS TEACHER swallow evaluation pending - Diet: NPO until enteral access 24hr post TNK - Bowel Movements: since admission - GI Ppx: Protonix 40 IV - Bowel Regimen: Start miralax and senna once obtain enteral access. Heme/Onc - Hb 11.8 - Plateletes 237 - PT 13.8 - INR 1.1 #Post TNK monitoring - Avoid unnecessary IM injections and arterial punctures during the first 24 hours post-TNK - Evaluate puncture sites for bleeding or hematoma - Evaluate emesis, secretions, stool, and urine for blood - No nasogastric tube insertions during the first 24 hours post-TNK - DVT ppx: SCDs. Will start heparin sc if no bleed on repeat imaging 24hrs. - Transfuse for hemoglobin < 7.0 g/dL Endocrine HbA1C 7.1 (12/11/21) #DM2 #Hyperglycemia - BG 218-285mg/dl - Home regimen: empagliflozin 25mg QD - Accuchecks + SSI q4h - BG goal 140-180 #HLD - Start home rosuvastatin 40mg once obtain enteral access. Musculoskeletal No active issues. DVT prophylaxis: SCDs LDAs: ETT, condom cath, PIVs Disposition: NCC SW: pending PT/OT: pending Code Status: Full Patient's case was discussed & staffed w/ NCC Attending Dr. Luis Alberto Nelson MS4 Associated attestation - Adrianna Sahu MD - 10/13/2022 4:59 PM CDT Neurologic Critical Care Attending I spent 40 minutes in full attendance with this critically-ill patient. Time spent was exclusive ofseparately billed procedures, treating other patients, and teaching time. I have reviewed and agreewith resident/medical student documentation. The patient is at high risk for complications and morbidity or mortality. The patient is criticallyill with vital organ impairment of failure with high probability of imminent or life-threatening deterioration in the patient's condition. Critical care was necessary to treat or prevent life-threatening deterioration of the following: Ischemic stroke (CMS/HCC) (POA: Yes) Carotid occlusion, right (POA: Yes) Carotid stenosis, left (POA: Yes) Weakness (POA: Unknown) Coronary artery disease (POA: No) JAMES (obstructive sleep apnea) (POA: Yes) COPD (chronic obstructive pulmonary disease) (CMS/HCC) (POA: Unknown) Stage 3 chronic kidney disease (CMS/HCC) (POA: Unknown) Peritonsillar abscess (POA: Yes) Dyspnea (POA: Yes) Respiratory acidosis (POA: Yes) Hx of completed stroke (POA: Yes) DM2 (diabetes mellitus, type 2) (CMS/HCC) (POA: Yes) Primary hypertension (POA: Yes) Smoker (POA: Yes) The plan of care other than mentioned in resident/medical student note consists of: AIS. S/p TNK. Secondary stroke workup/prevention per stroke. Post TNK monitoring per protocol Acute hypoxic and hypercarbic respiratory failure. Upper airway obstruction 2/2 peritonsillar abscess and bleeding s/p tPA. DIFFICULT INTUBATION. Decadron 10mg q8hr for upper airway swelling. SAT andSBT without attempt for extubation today Peritonsillar abscess. Unasyn for 7days. Appreciate ENT recs DM. Adjust insulin to keep BG < 180 CKD. Montior UOP, replete lytes as needed Dysphagia. Start TF after obtaining oral access. Adrianna Sahu MD Neurologic Critical Care Attending 10/13/2022 * Tere Beebe OT - 10/13/2022 9:22 AM CDT [facility] Department of Physical Medicine & Rehabilitation Progress Note Patient: Esperanza Chaparro [facility] Record Number: [id number] Date of : 1955 Age: [age] year old 10/13/22 0900 Therapy on Hold Therapy on Hold Other(Comment) OT orders received and chart reviewed. Pt has been intubated since OT orders were placed. Per PMR guidelines, will require updated orders prior to initiating skilled therapies. Please reorder as appropriate/indicated. * Lakeisha Seay SLP - 10/13/2022 8:15 AM CDT [facility] Department of Physical Medicine & Rehabilitation Progress Note Patient: Esperanza Chaparro [facility] Record Number: [id number] Date of : 1955 Age: [age] year old 10/13/22 0815 Therapy on Hold Therapy on Hold Chart Reviewed;Pt orally intubated since CHEMISTRY PHYSICS TEACHER consult, please reconsult when medically appropriate. Lakeisha Jang M.S., [facility]-CHEMISTRY PHYSICS TEACHER Speech Language Pathologist [phone] * Jh Welch RN - 10/13/2022 6:45 AM CDT Problem: Tobacco Use Goal: Inpatient tobacco-use cessation counseling participation 10/13/2022645 by Jh Welch RN Outcome: Progressing 10/13/2022644 by Jh Welch RN Outcome: Progressing Problem: Pain/Discomfort Goal: Patient exhibits reduced pain/discomfort as evidenced by pain scores 10/13/2022645 by Jh Welch RN Outcome: Progressing 10/13/2022644 by Jh Welch RN Outcome: Progressing Goal: Patient uses pharmacological and non-pharmacological pain management strategies. 10/13/2022645 by Jh Welch RN Outcome: Progressing 10/13/2022644 by Jh Welch RN Outcome: Progressing Goal: Patient verbalizes acceptable level of pain relief and ability to engage in desired activity. 10/13/2022645 by Jh Welch RN Outcome: Progressing 10/13/2022644 by Jh Welch RN Outcome: Progressing Problem: Safety related to restraint use Goal: Absence of injury while restrained 10/13/2022645 by Jh Welch RN Outcome: Progressing 10/13/2022644 by Jh Welch RN Outcome: Progressing Problem: Neurological Deficit Goal: Neurological status is stable or improving Outcome: Progressing Problem: Hemodynamic Status/Cardiac Output Goal: Patient has stable vital signs and fluid balance Outcome: Progressing Problem: Oxygenation/Respiratory Function Goal: Respiratory rate/effort will be within specified limits Outcome: Progressing Problem: Mobility Goal: Patient's mobility/activity will be maintained as optimum level for age, diagnosis and physical limitations Outcome: Progressing Goal: Continuum of care needs are further met through referral to outpatient services when appropriate. Outcome: Progressing Goal: Patient reports the ability to perform Activities of Daily Living. Outcome: Progressing Problem: Communication Impairment/Dysarthria Goal: Ability to express needs and understand communication Outcome: Progressing Problem: Nutrition Goal: Nutritional status is improving Outcome: Progressing Problem: Aspiration Precautions Goal: Patient's risk of aspiration is minimized Outcome: Progressing Problem: Glycemic Control Goal: Clinical indication of glycemia balance is achieved Outcome: Progressing Problem: Knowledge Deficit,Education,Discharge Plan Goal: The patient/family will understand cerebrovascular disease and its symptoms, treatment and management Outcome: Progressing * Amber Baez RN - 10/13/2022 4:47 AM CDT NCC called due to patient becoming more hypoxic despite changing modes of oxygen delivery. Patient obtunded, and tachypneic with labored breathing. Anesthesia at bedside. Unsuccessful attempt to intubate. Patient taken emergently to OR. Patient taken to CT post OR. * Paz Brannon MD - 10/13/2022 1:37 AM CDT Family Notification Documentation Contact made: 10/13/2022 1:37 AM Person(s) contacted: Nichelle Varghese Method of communication: Phone Phone number: [phone] Duration of discussion: 15 minutes Summary of discussion I called Ms. Varghese and informed her about respiratory distress episode of the patient. I told her about unsuccessful intubation attempts at the bedside and that he subsequently get intubated in the ORsettings. All questions were answered and Ms. Varghese thanked for the call. * Ree Alexander RN - 10/12/2022 8:06 PM CDT Referring Facility Time Initial Call Started: 1821 Referring Facility and Unit: [facility] ED Referring Provider: Dr. Green Referring Provider Specialty: Emergency Medicine Contact #: [phone] Time patient arrived to referring facility: 1246, initially came in for peritonsillar abscess and began having stroke symptoms while already at hospital. Accepting Facility Accepting Provider: Barbara Jorgensen Accepting Provider Specialty: Emergency Medicine Time Provider Accepted:184 Accepting Facility: [facility] # to Call Report: [phone] Transportation Method of transport: Ground Who arranged transport: Shankar MARCIAL Time EMS called: 1849 Transport priority: TCD ETA to pick-up:1854 ETA of patient to arrive: 1913 Time patient left referring facility: 1904 Where is patient going on arrival: [facility] ED Testing on arrival (if any): CTA Transfer delay (if any): Bed Assignment Time bed assigned: ED roomed at 1913 documented in this encounter H&P Notes * Yelitza Grey MD - 10/21/2022 12:39 PM CDT Images from the original note were not included. GENERAL INTERNAL MEDICINE HISTORY AND PHYSICAL Chief Complaint: Stroke History of Present Illness: Esperanza Chaparro is a 67 year old male with history of coronary disease, COPD , hypertension, diabetes, sleep apnea admitted for sudden onset left-sided face arm and leg weakness on 10/12. Activated stroke protocol on ED arrival at [place] in transfer to [facility] for higher level of care. Admit NIHSS was 21. MRI confirmed acute right MCA and SHEA cortical infarcts. Received tPA. He developed respiratory failure requiring intubation. Able to be successfully extubated on 10/15. He was also treated for a peritonsillar abscess s/p Unasyn course. Transferred to floor on 10/17. Initially meds and feeds for throughNG tube but cleared for oral dysphagia diet on 10/19. He has been doing well with thin liquids and purees. Transferred to medicine team for further management of post stroke care and rehab placement. On interview today, he reports he is doing okay. Would NG tube to be removed now that he can swallow liquids. His consumed about 50% of his breakfast so far. Endorses throat irritation with swallowing due to tube. He has significant left- sided weakness that persists. Baseline he lives with his sister but was independent in his ADLs. Review of Systems: Review of Systems Constitutional: Negative for fever. HENT: Positive for sore throat. Eyes: Negative for pain. Respiratory: Negative for cough. Cardiovascular: Negative for chest pain. Gastrointestinal: Negative for nausea and vomiting. Musculoskeletal: Positive for back pain. Skin: Negative for itching. Neurological: Positive for focal weakness. Negative for headaches. Past Medical History: Past Medical History: Diagnosis Date ??? Atherosclerosis of coronary artery ??? Chronic obstructive pulmonary disease (COPD) (CMS/HCC) ??? Essential hypertension ??? History of diabetes mellitus ??? MD (myocardial infarction) (CMS/HCC) ??? Sleep apnea Pt states he was dx with sleep apnea, but cpap did not help ??? Snoring ??? SOB (shortness of breath) Surgical History: Past Surgical History: Procedure Laterality Date ??? Back Surgery x2 ??? Hernia Repair bilateral inguinal hernia repair ??? PILONIDAL CYST RESECTION Social History: Social History Socioeconomic History ??? Marital status: Single Tobacco Use ??? Smoking status: Former Packs/day: 1.00 Years: 43.00 Pack years: 43.00 Types: Cigarettes Start date: 1979 Quit date: 10/12/2022 Years since quittin.0 Passive exposure: Past ??? Smokeless tobacco: Never Vaping Use ??? Vaping Use: Never used Substance and Sexual Activity ??? Alcohol use: Not Currently ??? Drug use: No Family History: Family history of heart disease. Allergies: Allergies Allergen Reactions ??? Pioglitazone Nausea and/or Vomiting ??? Hydralazine Nausea and/or Vomiting ??? Lisinopril Other ??? Metformin Diarrhea ??? Simvastatin Other Pt reports hot flashes Home Medications: Current Medications albuterol HFA (Proventil; Ventolin; Proair) 108 (90 Base) MCG/ACT inhaler Inhale 2 (two) puffs by mouth every 6 hours as needed for Shortness of Breath or Wheezing aspirin EC (Ecotrin) 81 MG tablet Take 1 (one) tablet by mouth once daily brinzolamide-brimonidine (Simbrinza) 1-0.2 % ophthalmic suspension Instill 1 (one) drop into both eyes 3 times daily cabergoline (Dostinex) 0.5 MG tablet Take 1 (one) tablet by mouth Two times a week carboxymethylcellulose 1 % ophthalmic gel Instill into both eyes 4 times daily as needed (Dry eyes) carvedilol (Coreg) 6.25 MG tablet Take 1 (one) tablet by mouth 2 times daily with morning and evening meal empagliflozin (Jardiance) 25 MG tablet Take 1 (one) tablet by mouth once daily ezetimibe (Zetia) 10 MG tablet Take 1 (one) tablet by mouth once daily fluticasone-salmeterol (Advair/Wixela) 100-50 MCG/ACT inhaler Inhale 1 (one) puff by mouth 2 times daily gabapentin (Neurontin) 100 MG capsule Take 2 (two) capsules by mouth at bedtime lisinopril (Prinivil; Zestril) 10 MG tablet Take 1 (one) tablet by mouth 2 times daily rosuvastatin (Crestor) 40 MG tablet Take 1 (one) tablet by mouth once daily tiotropium (Spiriva Respimat) 2.5 MCG/ACT inhaler Inhale 2 (two) puffs by mouth once daily vitamin D, ergocalciferol, (Drisdol) 1.25 MG (52524 UT) capsule Take 1 (one) capsule by mouth every7 days Physical Examination: BP 150/56 Pulse 53 Temp 97.5 ??F (36.4 ??C) (Oral) Resp 18 Ht 1.803 m (5' 11 ) Wt 102.5 kg (226 lb) SpO2 96% GEN: awake, chronically ill appearing, in NAD HEENT: NCAT, EOMI, MMM, NG in place RESP: Clear to auscultation bilaterally CARDIO: Regular rate and rhythm, Nl S1 and S2 No gallops. GI: Abdomen soft and non tender, non-distended, +BS, no organomegaly, obese EXT: No edema. NEURO: L sided hemiplegia, oriented, alert, conversant PSYCH: cooperative SKIN: Warm and dry Labs: CBC: Recent Labs Lab Units 10/21/22 0540 10/19/222 10/18/22 230 WBC 10??3/uL 9.2 9.5 9.8 RBC 10??6/uL 3.50* 3.58* 3.67* HGB g/dL 10.2* 10.4* 10.8* HCT % 31.8* 32.1* 32.3* BMP: Recent Labs Lab Units 10/21/22 0540 10/19/22 2302 10/18/22 2301 NA mmol/L 144 153* 146* CL mmol/L 112* 120* 115* CO2 mmol/L 28 27 25 BUN mg/dL 31* 40* 37* CREATININE mg/dL 1.00 1.06 1.01 CALCIUM mg/dL 9.1 9.4 9.2 Magnesium: No results for input(s): MG in the last 168 hours. Phosphorus: Recent Labs Lab Units 10/21/22 0540 10/19/22 2302 10/18/22 2301 PHOS mg/dL 2.8 3.6 3.2 Coagulation: No results for input(s): PT, INR, APTT in the last 168 hours. Endocrine: Recent Labs Lab Units 10/16/22 0029 TSH uIU/mL 1.008 LFTs: No results for input(s): AST, ALT, TBILI, DBILI, IBILI, ALB, GGT, TP in the last 168 hours. Invalid input(s): ALP My personal interpretation of labs: Radiology: CT HEAD WO CONTRAST Result Date: 10/17/2022 IMPRESSION: 1.Redemonstration of evolving large right MCA and right SHEA territory infarcts with expected interval evolution compared to prior. Persistent cytotoxic edema, grossly similar to the priorhowever, there has been interval increased conspicuity of the infarcts compared to prior, compatible with expected interval evolution. 2.Persistent local mass effect and effacement of the right lateral ventricle. Similar or slightly decreased [id number] midline shift as outlined above. 3.No evidence of hemorrhagic transformation. > Dictated by Miguel Escamilla MD (residential tech). I, Sundar Devine MD have personally reviewed and interpreted this examination/study. > Interpreting Provider: Sundar Devine MD on 10/17/2022 4:[address] HEAD WO CONTRAST Result Date: 10/16/2022 IMPRESSION: Motion artifact significantly limiting this study. 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 Clinical correlation and continued close follow-up are recommended. 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 Findings consistent small vessel disease in the left cerebral hemisphere. The preliminary results of this study were discussed byDr. Cleveland with the patient's care provider, Dr. Brannon on, 16 October 2022 at 0534 hours with read back confirmation and verification. Report dictated by Romain Mckee MD, PhD (residential tech). I, Arnav Lock MD have personally reviewed and interpreted this examination/study. > Interpreting Provider: Arnav Lock MD on 10/16/2022 1:21 PM Assessment: Esperanza Chaparro is a 67 year old male presenting with acute R MCA and SHEA stroke. Problem List/Plan: # acute ischemic stroke with residual L sided hemiplegia - continue stroke protocol, PT OT efforts, needs IPR on discharge - risk factor modification - aspirin, Plavix 90 days, statin - long-term goal blood pressure less than 130/80 # dysphagia secondary to stroke - continue dysphagia diet, thin liquids - CHEMISTRY PHYSICS TEACHER following - remove NG, monitor intake # DMII - basal + bolus insulin, titrate as needed - resume SGLT2i if continues to tolerate diet # HTN - continue amlodipine and losartan - titrate as needed #CAD s/p PCI - continue ASA, statin, beta alec held 2/2 bradycardia # hypernatremia secondary to free water deficit - resolved, continue to monitor daily labs # COPD not in acute exacerbation - resume home inhalers, duonebs prn #Bradycardia - home Coreg held # Peritonsillar abscess, resolved, s/p Unasyn treatment complete 10/19 DVT PPx: Heparin Code Status: Full Discharge Planning: PT/OT Consulted: Yes SW/Dispo: Needs inpatient rehab on discharge Yelitza Grey MD [facility] Medicine 10/21/2022 12:39 PM * Paz Brannon MD - 10/12/2022 8:18 PM CDT [facility] Stroke History and Physical Esperanza Chaparro Age: [age] year old Date of : 1955 Date of Admission: 10/12/2022 Hospital Day: 0 Subjective Patient is a 67 year old white male presents with sudden onset left-sided face, arm, and leg weakness. Date last known well: 10/12/2022 Time last known well: 15:00 Blood Glucose: 227 mg/dL Blood Pressure: 136/97 mm Hg Timeline EMS called NA tPA started at OSH NA Code Stroke Paged 19:09 Arrival at [facility] ED 19:17 NIHSS Completed 19:20 First Imaging Slice 19:22 tPA orders placed 19:30 tPA begun 19:34 History of Present Illness Esperanza Chaparro is a 67-year-old male who was transferred from [facility] with a concern for acute ischemic stroke. Reportedly, patient presented to [facility] on 10/12/22 with recently diagnosed peritonsillar abscess for hospitalization. Patient reported dysphagia with both solids and liquids upon initial evaluation. Patient was informed about the absence of available beds at [place]. Upon repeat evaluation, patient was found to have left-sided weakness by [facility] ED physician. Patient's family members (reportedlymother) was contacted and confirmed the absence of left-sided flaccid weakness prior to admission. CT head was done in OSH and bleeding was excluded. Patient was transferred to [facility] ED for acute ischemic stroke management. Upon initial evaluation, NIHSS was 21 (please, see breakdown below). IVR was activated due to high NIHSS along with cortical signs (visual field deficit, extinction, and gaze deviation). CT head demonstrated hypodensity in multiple areas in the right hemisphere. Given the side and size of the ischemic stroke along with contralateral weakness, patient's baseline was revisited. Initially, patient'smother was called who stated that the patient was able to ambulate himself with walker but he was dropping items off his left hand for almost 7 days and then recommended to call the sister who lives with the patient. Patient's sister confirmed the absence of left-sided flaccid weakness during the phone call with the ED resident. Thus, tPA administration was delayed. CTA of the head and neck demonstrated right ICA occlusion which was confirmed to be chronic in the light of brain and neck MRA from December of 2021. IVR code was cancelled due to chronic ICA occlusion and low ASPECTS. Patient was admitted to [facility] for post-tPA care. Medical history significant for ischemic infarct in the right hemisphere (2/2 flow failure in the setting of right ICA occlusion see admission from December,), hypertension, hyperlipidemia, diabetes mellitus on oral antidiabetics, coronary artery disease s/p stenting, cigarette smoking, JAMES, andCOPD. Hospital Course: 10/12: Patient was admitted to [facility] for post-tPA care. Oxygen requirement increased and patient did not improve despite being placed on non-rebreather mask. ABG was obtained which was significant for respiratory acidosis. ACC Team was consulted and initial attempt at the bedside was not successful dueto bleeding. Patient was taken to OR and intubated successfully. CT head wo contrast was obtained to rule out any worsening which might explain the worsening. CTH wo contrast demonstrated no bleedingNeck soft tissue CT w/contrast was ordered after staffing with ENT. Final read is pending. Past Medical History: Diagnosis Date ??? Atherosclerosis of coronary artery ??? Chronic obstructive pulmonary disease (COPD) (CMS/HCC) ??? Essential hypertension ??? History of diabetes mellitus ??? MD (myocardial infarction) (CMS/HCC) ??? Sleep apnea Pt states he was dx with sleep apnea, but cpap did not help ??? Snoring ??? SOB (shortness of breath) Past Surgical History: Procedure Laterality Date ??? Back Surgery x2 ??? Hernia Repair bilateral inguinal hernia repair ??? PILONIDAL CYST RESECTION (Not in a hospital admission) Allergy Allergies Allergen Reactions ??? Pioglitazone Nausea and/or Vomiting ??? Hydralazine Nausea and/or Vomiting ??? Lisinopril Other ??? Metformin Diarrhea ??? Simvastatin Other Pt reports hot flashes Family History No family history on file. Social History Social History Socioeconomic History ??? Marital status: Single Tobacco Use ??? Smoking status: Every Day Packs/day: 1.00 Types: Cigarettes ??? Smokeless tobacco: Never Vaping Use ??? Vaping status: Never Used Substance and Sexual Activity ??? Alcohol use: Not Currently ??? Drug use: No Review of Systems As per HPI Objective Patient Vitals for the past 8 hrs: BP Temp Temp src Pulse Resp SpO2 Weight 10/12/222054 170/73 -- -- 60 12 94 % -- 10/12/222047 170/73 98.3 ??F (36.8 ??C) Temporal 70 18 94 % -- 10/12/222043 (!) 194/93 -- -- 96 -- -- -- 10/12/222042 (!) 191/92 -- -- 96 19 95 % -- 10/12/222032 (!) 177/107 98.2 ??F (36.8 ??C) Temporal -- 21 94 % -- 10/12/222018 167/73 98.3 ??F (36.8 ??C) Temporal 74 20 94 % -- 10/12/222017 167/73 98 ??F (36.7 ??C) Temporal 80 20 95 % -- 10/12/222003 151/68 98 ??F (36.7 ??C) Temporal 62 18 94 % -- 10/12/221999 153/72 -- -- 61 17 95 % -- 10/12/22 1949 131/70 98.6 ??F (37 ??C) Temporal 60 -- 94 % -- 10/12/22 1934 137/64 98.2 ??F (36.8 ??C) Temporal 58 18 94 % -- 10/12/221925 -- -- -- -- -- -- 103 kg (227 lb) 10/12/22 191 136/97 98 ??F (36.7 ??C) Temporal 56 19 92 % -- Exam: Cortical Function Mental Status Awake, alert, follows commands Orientation Not oriented to time and place Language Fluency intact, comprehension intact, repetition intact. Moderate dysarthria Visual Orozco Left-sided hemianopia Neglect Both visual and tactile neglect noted Cranial Nerves II Pupils 4 mm and bilaterally reactive to light. Fundoscopic exam not performed. VIII Hearing is intact bilaterally to finger rub. III/IV/ Extraocular muscles intact. No diplopia, ptosis, nystagmus or convergence abnormalities noted. IX/X Palate elevated symmetrically without phonation abnormalities noted. V Facial sensation symmetric to light touch and intact bilaterally. Corneal reflex not examined. XIHead turning and shoulder shrug are intact. VII Left-sided UMN type palsy XII Tongue is midline with normal movements and no atrophy noted. Motor Function Movement No abnormalities noted Bulk No abnormalities noted Tone Reduced muscle tone in the left upper and lower extremities Proximal Upper Distal Upper Proximal Lower Distal Lower Right 5/5 5/5 5/5 5/5 Left 0/5 0/5 0/5 0/5 Babinski sign is present on the left Sensory Light Touch Anesthesia on the left side Noxious Stimuli Anesthesia on the left side Temperature Not tested Pallesthesia Not tested Gait Deferred ECG: Pending Ischemic Stroke Documentation Comorbidities As per HPI Cardiovascular/Cerebrovascular Comorbidities As per HPI NIHSS Stroke Scale: Interval: Baseline Time: 19:20 Person Administering Scale: Paz Brannon MD 1a Level of consciousness 0 = Alert; keenly responsive. 1b LOC questions 2 = Answers neither question correctly. 1c LOC commands 0 = Performs both tasks correctly. 2 Best gaze 2 = Forced deviation, or total gaze paresis is not overcome by oculocephalic maneuver. 3 Visual 2 = Complete hemianopsia. 4 Facial Palsy 2 = Partial paralysis (total or near-total paralysis of lower face). 5a Motor Left Arm 4 = No movement. 5b Motor Right Arm 0 = No drift; limb holds 90 (or 45) degrees for full 10 seconds. 6a Motor Left Leg 4 = No movement. 6b Motor Right Leg 0 = No drift; leg holds 30 degree position for full 5 seconds. 7 Limb Ataxia 0 = Absent. 8 Sensory 2 = Severe or total sensory loss; patient is not aware of being touched in the face, arm,and leg. 9 Best Language 0 = No aphasia; normal. 10 Dysarthria 1 = [id number] dysarthria; patient slurs at least some words and, at worst, canbe understood with some difficulty. 11 Extinction/Inattention 2 = Profound faith-inattention or extinction to more than one modality; does not recognize own hand or orients to only one side of space. Total - 21 Tenecteplase Administered? Yes, Verbal Informed Consent Obtained from: Patient: Discussions to obtain informed consent for tenecteplase included: risk of bleeding, including in the brain, that can result in ; benefit of decreased functional disability; as well as alternatives, including no treatment or conservative treatment with antiplatelet therapy. Door to needle time >30 minutes: No Large Vessel Occlusion Suspected? Yes, Thrombectomy candidate?: Yes - IVR Activated Mechanical Thrombectomy not considered due to: Chronic right ICA occlusion and low ASPECTS Hospital Problems on Admission: Ischemic stroke (CMS/HCC) (POA: Yes) Carotid occlusion, right (POA: Yes) Carotid stenosis, left (POA: Yes) Weakness (POA: Unknown) Coronary artery disease (POA: No) JAMES (obstructive sleep apnea) (POA: Yes) COPD (chronic obstructive pulmonary disease) (CMS/HCC) (POA: Unknown) Stage 3 chronic kidney disease (CMS/HCC) (POA: Unknown) Hx of completed stroke (POA: Yes) DM2 (diabetes mellitus, type 2) (CMS/HCC) (POA: Yes) Primary hypertension (POA: Yes) Smoker (POA: Yes) Assessment Esperanza Chaparro is a 67 year old male presenting for left-sided hemiplegia and right-sided gaze deviation. Neurological examination is significant for left- sided hemiplegia, left-sided homonymous hemianopia, right-sided gaze deviation, visual and sensory neglect. The constellation of signs are indicative of large cortical (multiple areas) and possibly subcortical involvement on the right side. Acute in onset symptoms are suggestive of vascular (ischemic event given hx of previous stroke and multiple vascular risk factors), seizure (previous cortical and subcortical lesion; gaze preference contralateral to weakness makes it unlikely), and metabolic (given reduced oral intake in the setting of p eritonsillar abscess). Patient received tPA therapy and vessel imaging demonstrated right ICA occlusion, which is chronic given previous image from 12/2021. Stroke Type: Ischemic Stroke Mechanism: Cardioembolic vs Large Artery Plan Neurological #Ischemic stroke #Post tPA care - Vascular Neurology Team will be primary - Post-tPA monitoring - q1h vitals and neurological checks - Stat CT head for any change in neurological examination - MRI Brain or repeat CTH 24 hours post-tPA; okay to restart ASA and heparin if no bleed noted - Head of bed > 30?? - Avoid hypoglycemia, hyponatremia, and hyperthermia - Sodium goals: 135-145 mEq/L #Encephalopathy -Metabolic vs. Vascular vs. Toxic -BMP, Mg, Phos -Follow up brain imaging -Follow up urine drug screen and UA -Treat underlying cause accordingly #Hx of ischemic stroke -Patient was discharged on Aspirin and Ticagleror in December, and currently on Aspirin as antithrombotic -Hold home Rosuvastatin until bedside swallow test is performed -Hold antithrombotics for 24 hours #Cigarette smoking -Started on nicotine patch 21 mg Core Measures tPA administration: yes Anti-thrombotic: Hold Statin: Rosuvastatin 40 mg will be started once swallow test is complete (NG tube vs. oral) DVT prophylaxis: SCDs Swallow Evaluation: pending PT/OT Evaluation: pending Smoking cessation; will cancer genetic counselor: pending Cardiovascular #Hypertension -Hold home Carvedilol 6.25 mg BID and Lisinopril 10 mg for 24 hours -PRN Labetalol (hx of allergic reaction to Hydralazine) #CAD s/p stent placement (date is unknown for possible DAPT vs. single antiplatelet) -Hold antithrombotics for 24 hours -Hold home Rosuvastatin 40 mg qHS until bedside swallow test is performed and resume afterwards -Hold home nitroglycerin 0.3 mg soluble tablet at this time #Hyperlipidemia -See hx of ischemic stroke for further details -Hold home ezetimibe until bedside swallow is completed - 12-lead EKG - Cardiac markers x 3 - Transthoracic ECHO ordered - Blood pressure goal: SBP < 180, DBP < 105 - PRN labetalol IV for SBP > 180, DBP > 105 - Hemodynamic monitoring - Maintain MAP ~ 65 Respiratory #AHRF -On MV -VAP bundle was ordered #COPD -Home regimen is as follows: Fluticasone/Salmeterol 100/50 1 inh BID PRN, Tiotropium 2.5 mcg/[id number] 2 inh once a day, and Albuterol 90 mcg 2 puffs QID PRN -Started on Albuterol and Salmeterol. Hold Spiriva #JAMES -Not on CPAP -CPAP might be considered given it's benefit in ischemic stroke - Aspiration precautions - Elevate head of bed - Maintain oxygen saturation > 92% - Monitor for respiratory distress Gastrointestinal #Dysphagia - Bedside evaluation is pending - CHEMISTRY PHYSICS TEACHER swallow evaluation Renal/Electrolytes #Respiratory acidosis 2/2 dyspnea -See AHRF for details #CKD Stage IIIa -Likely 2/2 combination of DM and hypertension -CTM - Monitor intake and output - Replete electrolytes as needed #Hyperkalemia -Likely 2/2 kidney injury -EKG is pending -CTM Hematology No acute issues (CBC is pending at the time of writing) - Avoid unnecessary IM injections and arterial punctures during the first 24 hours post-tPA - Evaluate puncture sites for bleeding or hematoma - Evaluate emesis, secretions, stool, and urine for blood - No nasogastric tube insertions during the first 24 hours post-tPA - Transfuse for hemoglobin < 7.0 g/dL Endocrine #Hyperglycemia #T2DM on oral antidiabetic - Home regimen: Empagliflozin 25 mg qD - Hold oral antidiabetic at this time - Most recent HbA1c 7.1% (12/11/2021) - Accuchecks + SSI Infectious Disease #Peritonsillar abscess -Reportedle the patient has been on oral antibiotics for 5 days (exact antibiotic is not documented) -Started on Unasyn 3 g q6h until oral swallow test is complete (EOT: 10/21/22 to complete 14 days course of antibiotic) - Follow up ENT recommendations - Monitor for fevers - Daniels culture if febrile Musculoskeletal No acute issues Disposition Bedrest at this time Individual Modifiable Risk Factors Hypertension: yes Hyperlipidemia: yes Diabetes: yes Atrial Fibrillation: no Tobacco: yes Patient's plan was discussed with Vascular Neurology Attending, Dr. Hall. Paz Brannon MD PGY-3 Neurology Resident 9:19 PM Associated attestation - Jorge Hall MD - 10/13/2022 2:06 PM CDT The above note was reviewed. The patient was seen and examined. I would add the following: I saw and examined the patient with the resident and/or medical student and/or nurse practitioner. I have verified all details of the note and agree with his/her documentation with additions and modifications as listed in my separate note. Please refer to the resident's, medical student's, or nursepractitioner's note for plans of active problems not discussed in this note. MEDICATIONS FOR CURRENT ENCOUNTER: SCHEDULED MEDICATIONS: *Hold/Avoid Medication, Other, 0800 and 2000 *Hold/Avoid Medication, Other, DIRECTED 0.9% NaCl injection 3 mL, Intracatheter, q8h 0.9% NaCl injection 3 mL, Intracatheter, q8h albuterol-ipratropium (Duo-Neb) nebulizer solution 3 mL, Inhalation, q4h ampicillin-sulbactam (Unasyn) 3 g in 0.9% NaCl IV 100 mL IVPB, Intravenous, q6h artificial tears ophthalmic ointment, Each Eye, q8h budesonide (Pulmicort) nebulizer suspension 500 mcg, Inhalation, QDAY chlorhexidine (Peridex) 0.12 % oral solution 15 mL, Mouth/Throat, BID dexAMETHasone (Decadron) injection 10 mg, Intravenous, q8h insulin lispro (HumaLOG;ADMelog) 100 UNIT/ML pen 0-24 Units, Subcutaneous, q4h iopamidol (Isovue 370) 76 % contrast, Intravenous, Contrast - Once iopamidol (Isovue 370) 76 % contrast, Intravenous, Contrast - Once nicotine (Nicoderm CQ) patch 21 mg, Transdermal, QDAY pantoprazole (Protonix) injection 40 mg, Intravenous, QDAY polyethylene glycol 3350 (Miralax) packet 17 g, Enteral Tube, QDAY senna-docusate (Senokot-S) tablet 1 tablet, Enteral Tube, QDAY [COMPLETED] 0.9% NaCl injection 10 mL, Intracatheter, Once [COMPLETED] magnesium sulfate 2 g in 50 mL bolus, Intravenous, Once [COMPLETED] morphine injection 4 mg, Intravenous, Once [COMPLETED] tenecteplase (TNKase) injection 25 mg, Intravenous, Once [] magnesium sulfate 2 g in 50 mL bolus, Intravenous, Once CONTINUOUS MEDICATIONS: propofol (Diprivan) infusion, Intravenous, Continuous PRN MEDICATIONS: Or 0.9% NaCl injection 1-10 mL, Intracatheter, PRN 0.9% NaCl injection 3 mL, Intracatheter, PRN acetaminophen (Tylenol) suppository 650 mg, Rectal, q4h PRN albuterol (Proventil;Ventolin) (2.5 MG/3ML) 0.083% nebulizer solution 2.5 mg, Inhalation, q6h PRN dextrose 10 % IV bolus, Intravenous, PRN dextrose 10 % IV bolus, Intravenous, PRN fentaNYL (PF) (Sublimaze) injection 50 mcg, Intravenous, q1h PRN glucagon (Glucagen) injection 1 mg, Subcutaneous, PRN glucose (Diabetic Use) (Dex4 Glucose) oral liquid, Oral, PRN glucose (Diabetic Use) oral gel, Oral, PRN glucose chew tablet 4 tablet, Oral, PRN labetalol (Normodyne; Trandate) injection 10 mg, Intravenous, q15 min PRN labetalol (Normodyne; Trandate) injection 10 mg, Intravenous, q15 min PRN salmeterol (Serevent) 50 MCG/ACT diskus inhaler 1 puff, Inhalation, q12h PRN Patient Vitals for the past 24 hrs: Temp Pulse Resp BP 10/13/22 1300 -- 50 15 131/59 10/13/22 1200 98.3 ??F (36.8 ??C) 48 15 121/59 10/13/22 1100 -- 49 15 118/59 10/13/22 1000 97.4 ??F (36.3 ??C) 52 14 126/63 10/13/22 0900 -- 50 12 117/58 10/13/22 0800 97.9 ??F (36.6 ??C) 53 15 115/54 10/13/22 0715 -- 53 15 115/55 10/13/22 0700 -- 53 15 107/52 10/13/22 0645 -- 55 15 107/51 10/13/22 0630 97.5 ??F (36.4 ??C) 56 15 100/77 10/13/22 0615 -- 53 (!) 5 105/57 10/13/22 0600 -- 53 18 113/51 10/13/22 0545 -- 53 (!) 8 115/54 10/13/22 0534 -- 52 (!) 6 107/53 10/13/22 0515 -- 51 (!) 5 102/47 10/13/22 0500 -- 54 14 105/48 10/13/22 0445 -- 53 (!) 5 109/49 10/13/22 0430 -- 53 (!) 0 113/71 10/13/22 0415 -- 50 (!) 4 116/61 10/13/22 0400 -- 54 (!) 4 116/68 10/13/22 0345 -- 52 (!) 3 113/56 10/13/22 0330 -- 54 10 126/56 10/13/22 0315 -- 55 (!) 0 113/63 10/13/22 0300 -- 63 15 107/63 10/13/22 0245 -- 56 (!) 3 110/62 10/13/22 0230 97.4 ??F (36.3 ??C) 58 (!) 7 102/57 10/13/22 0215 -- 60 15 106/59 10/13/22 0200 -- 64 30 127/60 10/13/22 0145 -- 77 (!) 41 (!) 172/100 10/13/22 0013 -- 81 18 (!) 180/86 10/13/22 0000 -- 82 21 (!) 180/96 10/12/22 2345 -- 85 23 (!) 165/126 10/12/22 2330 -- 72 22 (!) 197/80 10/12/22 231 -- 68 18 173/75 10/12/22 230 -- 73 25 95/81 10/12/222249 -- 70 -- (!) 184/82 10/12/222244 -- 72 21 (!) 184/82 10/12/222224 97.4 ??F (36.3 ??C) 81 -- (!) 198/90 10/12/222132 98.3 ??F (36.8 ??C) 69 17 169/83 10/12/222124 -- 67 18 175/88 10/12/222122 -- 72 20 (!) 181/87 10/12/222117 98.3 ??F (36.8 ??C) 79 20 (!) 196/90 10/12/222102 98.2 ??F (36.8 ??C) 72 18 167/88 10/12/222099 -- 61 12 167/88 10/12/222054 -- 60 12 170/73 10/12/222047 98.3 ??F (36.8 ??C) 70 18 170/73 10/12/222043 -- 96 -- (!) 194/93 10/12/222042 -- 96 19 (!) 191/92 10/12/222032 98.2 ??F (36.8 ??C) -- 21 (!) 177/107 10/12/222018 98.3 ??F (36.8 ??C) 74 20 167/73 10/12/22 2018 98 ??F (36.7 ??C) 80 20 167/73 10/12/22 2004 98 ??F (36.7 ??C) 62 18 151/68 10/12/221999 -- 61 17 153/72 10/12/221948 98.6 ??F (37 ??C) 60 -- 131/70 10/12/221933 98.2 ??F (36.8 ??C) 58 18 137/64 10/12/22 191 98 ??F (36.7 ??C) 56 19 136/97 Intake/Output Summary (Last 24 hours) at 10/13/2022 1406 Last data filed at 10/13/2022 1309 Gross per 24 hour Intake 578.99 ml Output 200 ml Net 378.99 ml Labs: Recent Labs Component Name 10/13/2222712/12/21 020 CHOL 148 188 TRIG 117 216* HDL 40* 33* LDLCALC 85 112* Recent Labs Component Name 10/12/22223012/11/21 1227 HGBA1C 7.7* 7.1* Recent Labs Component Name 10/12/22235210/12/22202210/12/22202001/19/2248 12/14/21 0255 12/13/21 0149 NA 137 137 135* 137 136 137 POTASSIUM 5.1* 3.3* 5.2* 4.8* 5.5* 4.1 CL 110* 120* 109* 102 100 98 CO2 18* 13* 16* 27 22 24 BUN 34* 27* 34* 21 22 21 CREATININE 1.40* 0.91 1.36* 1.26* 1.40* 1.32* CALCIUM 9.4 5.8* 9.1 9.9 9.6 9.4 MAGNESIUM 1.9 - 1.8 - 1.6 1.6 PHOS 3.5 - 2.8 - 3.7 3.5 Recent Labs Component Name 10/13/2253410/12/22235201/19/2294712/14/215 12/13/21 0149 WBC 15.1* 22.0* 8.5 7.8 6.2 HGB 11.8* 13.4 12.7 12.0 11.6* HCT 35.4 41.3 38.6 36.2 34.9* PLTCOUNT - 237 237 260 246 RBC 4.01* 4.62 4.50 4.18* 4.06* Recent Labs Component Name 10/12/22202001/19/22 0948 12/11/21 1227 PT 13.8 12.4 13.0 INR 1.1 0.9 1.0 PTT - - 35.2 Recent Labs Component Name 10/13/2253410/13/2222710/12/222352 PH 7.31* 7.28* 7.12* PCO2 37 40 62* PO2 134* 115* 59* FIO2 50.0 50.0 100.0 Patient Vitals for the past 24 hrs: Glucose Bedside (mg/dL) 10/12/22 1912 285 mg/dL Micro: Microbiology Results (Displays last 21 days for this encounter ONLY) No results found for the last 504 hours. Length of stay: 1 Problem List Ischemic stroke (CMS/HCC) (POA: Yes) Carotid occlusion, right (POA: Yes) Carotid stenosis, left (POA: Yes) Weakness (POA: Unknown) Coronary artery disease (POA: No) JAMES (obstructive sleep apnea) (POA: Yes) COPD (chronic obstructive pulmonary disease) (CMS/HCC) (POA: Unknown) Stage 3 chronic kidney disease (CMS/HCC) (POA: Unknown) Peritonsillar abscess (POA: Yes) Dyspnea (POA: Yes) Respiratory acidosis (POA: Yes) Hx of completed stroke (POA: Yes) DM2 (diabetes mellitus, type 2) (CMS/HCC) (POA: Yes) Primary hypertension (POA: Yes) Smoker (POA: Yes) Present on Admission: Ischemic stroke (CMS/HCC) DM2 (diabetes mellitus, type 2) (CMS/HCC) Hx of completed stroke Primary hypertension Smoker Carotid occlusion, right Carotid stenosis, left JAMES (obstructive sleep apnea) Peritonsillar abscess Dyspnea Respiratory acidosis Routine multidisciplinary rounds were completed today with the presence of the primary team staff, residents, PT/OT/CHEMISTRY PHYSICS TEACHER and CM/SW. Jorge Hall MD Vascular and Interventional Neurology documented in this encounter Procedure Notes * Criss Brower MD - 10/14/2022 5:18 PM CDT EEG REPORT Patient Name: Esperanza Chaparro Date: 10/14/2022 EEG#: [id number] Start Time: 10-14-22 12:52 Stop Time: 10-14-22 13:18 Clinical History: Esperanza Chaparro is a 67 year old male with acute onset of left- sided weakness. Patient also has history of throat abscess. This EEG is ordered to ascertain epileptiform discharges andor electrographic seizures. Current medications Current Facility-Administered Medications Medication ??? 0.9% NaCl injection 3 mL And ??? 0.9% NaCl injection 1-10 mL ??? 0.9% NaCl injection 10 mL ??? 0.9% NaCl injection 3 mL And ??? 0.9% NaCl injection 3 mL ??? acetaminophen (Tylenol) suppository 650 mg ??? albuterol (Proventil;Ventolin) (2.5 MG/3ML) 0.083% nebulizer solution 2.5 mg ??? [START ON 10/15/2022] albuterol-ipratropium (Duo-Neb) nebulizer solution 3 mL ??? ampicillin-sulbactam (Unasyn) 3 g in 0.9% NaCl IV 100 mL IVPB ??? artificial tears ophthalmic ointment ??? aspirin chew tablet 81 mg ??? budesonide (Pulmicort) nebulizer suspension 500 mcg ??? chlorhexidine (Peridex) 0.12 % oral solution 15 mL ??? dexAMETHasone (Decadron) injection 10 mg ??? dextrose 10 % IV bolus Or ??? dextrose 10 % IV bolus ??? fentaNYL (PF) (Sublimaze) injection 50 mcg ??? glucagon (Glucagen) injection 1 mg ??? glucose (Diabetic Use) (Dex4 Glucose) oral liquid ??? glucose (Diabetic Use) oral gel ??? glucose chew tablet 4 tablet ??? heparin injection 5,000 Units ??? insulin glargine (Lantus) pen 15 Units ??? insulin lispro (HumaLOG;ADMelog) 100 UNIT/ML pen 0-24 Units ??? iopamidol (Isovue 370) 76 % contrast ??? iopamidol (Isovue 370) 76 % contrast ??? nicotine (Nicoderm CQ) patch 21 mg ??? pantoprazole (Protonix) injection 40 mg ??? perflutren lipid microsphere (Definity) injection 0.5 mL ??? polyethylene glycol 3350 (Miralax) packet 17 g ??? propofol (Diprivan) infusion ??? rosuvastatin (Crestor) tablet 40 mg ??? senna-docusate (Senokot-S) tablet 1 tablet Description This is a routine 21-channel EEG tracing consisting of 20 channels of EEG obtained from electrodes placed on the scalp according to the international 10- 20 system and one channel of EKG monitoring. It captures the awake, drowsy, asleep, confusional states. It is a good quality study. Background Posterior dominant background rhythm was not observed. The cerebral rhythm was asymmetric. The background on the left side consisted of 5 to 6 Hz of 15 to 25 ??V with intermixed 1 to 2 Hz delta activity of 20 to 30 ??V. On the right side the cerebral rhythm was poorly formed and expressed. Intermittently poorly formed 1-2 Hz delta activity of 10 to 15 ??V was noted. This was minimally reactive toexternal stimuli. Activation Procedures Photic stimulation and hyperventilation were not performed. Sleep Well-formed sleep patterns were not observed. EKG was observed throughout the recording. IMPRESSION This is an abnormal EEG. The abnormalities are in the form of: 1. Moderately severe suppression of right hemispheric activity. This can be consistent with patient's acute onset of ischemic infarct. 2. Slow background indicating bilateral cerebral hemispheric dysfunction consistent with an encephalopathic process. Epileptiform discharges or electrographic seizures were not observed. I personally reviewed this EEG with the resident and formulated the report as necessary. Criss Brower M.D. Professor of Neurology * Lakeisha eLbron - 10/14/2022 2:57 PM CDTProcedure(s): EEG EXTENDED MONITORING > 1 HOUR Mr. Chaparro in room #317 was hooked up for a routine [id number] using regular wires, all leads were reading under 10kOhms. [facility] was medically sedated. Vitals were noted on test, no activations were preformed. Coding and notes were finished back in the department. * Neal Munoz DO - 10/13/2022 12:52 AM CDTProcedure(s): INTUBATION Pre-Procedure Diagnose(s): Tonsillar abscess Post-Procedure Diagnose(s): Tonsillar abscess Images from the original note were not included. Endotracheal Intubation Procedure Note Indications: hypoxemia. Was called for ICU intubation as patient was in hypoxic respiratory distress with nonrebreather with oxygen saturation 85% on 15L. Physical exam showed glossitis with limited mouth opening. Patient was bag masked to low 90s. Patient was kept spontaneously breathing, we used viscous lidocaine on C-mac 4 blade and did a DL without any sedation as patient was obtunded. We were unable to obtain any view 2/2 blood in the oropharynx with what seemed to be peritonsillar abscess. It was difficult to pass the blade to the glossitis. Of note, patient was transferred from [place] for stroke work up and received tPa 3 hours prior. At that point, we decided to take the patient to the OR. Transported with monitors, and cric kit [facility]. ENT was called. Trauma surgery with Dr. Martinez present for emergent airway. We had a second attempt in the OR with 40 of propofol. We used a fiberoptic with D-blade for the view. We left a yankor for constant suction with intermittent grade 2 view, with copious blood. We were unable to pass the tube. We bag masked for our third attempt with a D-blade, yankor and fiberoptic and were able to get a grade 1 view, but was difficult 2/2 anatomy, swollen tonsils and copious blood.Patient was kept spontaneously breathing throughout intubation. Resident: Neal Munoz DO Anesthesiologist: Dr. Booker. Dr. Roper Procedure: Pre-oxygenation with 1.0 yehuda oxygen Ambu bag: yes Oral airway: yes Sedation: propofol 40mg Paralytic: rocuronium 50 mg Equipment: Dada 4, D-blade laryngoscope blade, fiberoptic bronchoscope Cricoid Pressure: no Number of attempts: 3 ETT location confirmed by auscultation and CO2 detector ETT secured at 22cm at the teeth. Complications: Copious bloody airway 2/2 likely tPA Condition: stable Recommendations: ABG and CXR to verify placement. Attending Attestation:This procedure was performed under the direct supervision of Dr. Booker, attending anesthesiologist, who was present for the entire procedure. Neal Munoz DO Anesthesiology and Critical Care, PGY-4 10/13/2022 12:53 AM documented in this encounter Consult Notes * Kareen Garces RN - 10/18/2022 1:00 PM CDTAssociated Order(s): IP CONSULT TO CASE MANAGEMENT Care Coordination Progress Note Anticipated level of care at discharge: Home, Acute Rehab Facility Wednesday CM addressed consult Consult noted. SW following for AR READMISSION RISK SCORE is 18 at 1:01 PM 10/18/2022. Anticipated Discharge Date: 10/20/22 Patient/Family provided with list of resources? Unknown Preferred Provider / High Quality Network List given?: Unknown Reason for provider choice: Pt. choice - Pt. choice, Insurance Family Support (Name and Phone): Extended Emergency Contact Information Primary Emergency Contact: Clarita Guaman Relation: Mother Secondary Emergency Contact: Nichelle Varghese Relation: Sister Transportation at Discharge: (to be determined) Equipment at Home: Equipment at Home: Walker-4 Wheeled with Seat List DME patient requires but does not have: DME Provider: Medication affordability concerns: No Follow Up Appointment: Transportation to MD: Auth Number (if required): [place]: DME: Medications: Transportation: Name: Kareen Garces RN Phone: [phone] * David Elder MD - 10/13/2022 8:57 PM CDT Images from the original note were not included. Neurosurgery Consult Note Name: Esperanza Chaparro : 1955 Date of Admission:10/12/2022 Date of Consult:10/13/2022 8:57 PM Chief Complaint (CC): Stroke HISTORY OF PRESENT ILLNESS (HPI): 67yo M with a history of ischemic stroke (2017 and 2021), prolactinoma, HTN, HLD, DM2, CAD and NSTEMI s/p stent, colon cancer, JAMES, smoking and COPD, who presented as a transfer from [facility] on 10/12 with concern for acute ischemic stroke. Patient was at [facility] on 10/12 with recently diagnosed peritonsillar abscess when he developed L sided weakness. CTH demonstrated multiple hypodensities of the right hemisphere possibly representing areas of evolving acute infarct as well as multiple chronic infarcts. CTA demonstrated R ICA occlusion, which is chronic, seen in December 2021. IVR was cancelled d/t chronic nature of occlusion and low ASPECT score. Patient was given TNK after call to family for patient's baseline confirmed new focal deficits. Patient was admitted to [facility] for post-TNK monitoring. Intubated 10/12 for desaturations and neurosurgery consulted for hemicrane watch. Past Medical History: Diagnosis Date Atherosclerosis of coronary artery Chronic obstructive pulmonary disease (COPD) ([facility]) Essential hypertension History of diabetes mellitus MD (myocardial infarction) ([facility]) Sleep apnea Pt states he was dx with sleep apnea, but cpap did not help Snoring SOB (shortness of breath) Past Surgical History: Procedure Laterality Date Back Surgery x2 Hernia Repair bilateral inguinal hernia repair PILONIDAL CYST RESECTION Allergies Allergen Reactions Pioglitazone Nausea and/or Vomiting Hydralazine Nausea and/or Vomiting Lisinopril Other Metformin Diarrhea Simvastatin Other Pt reports hot flashes Current Medications albuterol HFA (Proventil; Ventolin; Proair) 108 (90 Base) MCG/ACT inhaler Inhale 2 (two) puffs by mouth every 6 hours as needed for Shortness of Breath or Wheezing aspirin EC (Ecotrin) 81 MG tablet Take 1 (one) tablet by mouth once daily brinzolamide-brimonidine (Simbrinza) 1-0.2 % ophthalmic suspension Instill 1 (one) drop into both eyes 3 times daily cabergoline (Dostinex) 0.5 MG tablet Take 1 (one) tablet by mouth Two times a week carboxymethylcellulose 1 % ophthalmic gel Instill into both eyes 4 times daily as needed (Dry eyes) carvedilol (Coreg) 6.25 MG tablet Take 1 (one) tablet by mouth 2 times daily with morning and evening meal empagliflozin (Jardiance) 25 MG tablet Take 1 (one) tablet by mouth once daily ezetimibe (Zetia) 10 MG tablet Take 1 (one) tablet by mouth once daily fluticasone-salmeterol (Advair/Wixela) 100-50 MCG/ACT inhaler Inhale 1 (one) puff by mouth 2 times daily gabapentin (Neurontin) 100 MG capsule Take 2 (two) capsules by mouth at bedtime lisinopril (Prinivil; Zestril) 10 MG tablet Take 1 (one) tablet by mouth 2 times daily rosuvastatin (Crestor) 40 MG tablet Take 1 (one) tablet by mouth once daily tiotropium (Spiriva Respimat) 2.5 MCG/ACT inhaler Inhale 2 (two) puffs by mouth once daily vitamin D, ergocalciferol, (Drisdol) 1.25 MG (30245 UT) capsule Take 1 (one) capsule by mouth every7 days Current Facility-Administered Medications Medication *Hold/Avoid Medication *Hold/Avoid Medication 0.9% NaCl injection 3 mL And 0.9% NaCl injection 1-10 mL 0.9% NaCl injection 3 mL And 0.9% NaCl injection 3 mL acetaminophen (Tylenol) suppository 650 mg albuterol (Proventil;Ventolin) (2.5 MG/3ML) 0.083% nebulizer solution 2.5 mg albuterol-ipratropium (Duo-Neb) nebulizer solution 3 mL ampicillin-sulbactam (Unasyn) 3 g in 0.9% NaCl IV 100 mL IVPB artificial tears ophthalmic ointment budesonide (Pulmicort) nebulizer suspension 500 mcg chlorhexidine (Peridex) 0.12 % oral solution 15 mL dexAMETHasone (Decadron) injection 10 mg dextrose 10 % IV bolus Or dextrose 10 % IV bolus fentaNYL (PF) (Sublimaze) injection 50 mcg glucagon (Glucagen) injection 1 mg glucose (Diabetic Use) (Dex4 Glucose) oral liquid glucose (Diabetic Use) oral gel glucose chew tablet 4 tablet heparin injection 5,000 Units insulin lispro (HumaLOG;ADMelog) 100 UNIT/ML pen 0-24 Units iopamidol (Isovue 370) 76 % contrast iopamidol (Isovue 370) 76 % contrast labetalol (Normodyne; Trandate) injection 10 mg labetalol (Normodyne; Trandate) injection 10 mg nicotine (Nicoderm CQ) patch 21 mg pantoprazole (Protonix) injection 40 mg polyethylene glycol 3350 (Miralax) packet 17 g propofol (Diprivan) infusion rosuvastatin (Crestor) tablet 40 mg salmeterol (Serevent) 50 MCG/ACT diskus inhaler 1 puff senna-docusate (Senokot-S) tablet 1 tablet Social History Tobacco Use Smoking status: Every Day Packs/day: 1.00 Types: Cigarettes Smokeless tobacco: Never Vaping Use Vaping status: Never Used Substance Use Topics Alcohol use: Not Currently No family history on file. REVIEW OF SYSTEMS Deferred PHYSICAL EXAM BP 118/56 Pulse 55 Temp 98.6 ??F (37 ??C) (Oral) Resp 15 Ht 1.778 m (5' 10 ) Wt 106 kg (233 lb 11 oz) SpO2 93% General: Intubated Neuro: GCS 9T (E2VTM6), +cough, +corneals, od3r, os3r, opens eyes to stim, follows commands in RUE RLE, withdraws LUE LLE weakly. LABORATORY Recent Labs Component Name 10/13/2235 10/12/222352 WBC 15.1* 22.0* HGB 11.8* 13.4 HCT 35.4 41.3 PLTCOUNT - 237 Recent Labs Component Name 10/12/222352 NA 137 POTASSIUM 5.1* CO2 18* BUN 34* CREATININE 1.40* GLUCOSE 278* Recent Labs Component Name 10/12/222020 INR 1.1 TEG: RADIOLOGY CT: Assessment: 67 year old male with complicated pmhx and chronic R ICA occlusion presenting with new R hemispheric stroke s/p TPA. Patient was intubated night of 10/12 and neurosurgery is being consulted for crani watch. Patient is following commands, 3mm MLS on scan. Plan: - Continue to follow exam q1h - STAT scan at any signs of neuro exam change - Plan CT scan 0600 - Overall care per stroke - Neurosurgery will continue to follow Case discussed with Dr. Jerrod Dawson MD 10/13/2022 8:57 PM Staff note Patient seen and examined by me. Agree with above. Will obtain imaging tomorrow and watch for clinical decline for possible decompressive craniectomy. * Cielo Arrington RD/AARON - 10/13/2022 1:44 PM CDTAssociated Order(s): IP CONSULT TO NUTRITIONAL SERV; IP CONSULT TO NUTRITIONAL SERV Initial Nutrition Assessment Brief Synopsis: Patient is at Nutrition Risk; Specific criteria can be found in assessment below Nutrition Plan: NPO Start TF at 20 ml/hr, advance 20 ml q 24 hrs to be at goal by day 3 of intubation. *ESPEN guidelines recommend slow advancement rate for ICU patients* TF recommendations ON propofol- current rate of 12.36ml/hr providing 326 lipid kcal- Vital High Protein at goal of 45 ml/hr Provides 1080 kcal, 95 g protein, 121 g carbohydrate, 903 ml free water +50 ml q 6 hrs free water flush or per MD if on IVF +100 ml q4 hrs free water flush or per MD if not on additional fluids *Unable to meet protein demands due to propofol rate* TF recommendations OFF propofol- Vital High Protein at goal of 60 ml/hr+ 1 prostat packet. Provides 1540 kcal, 141 g protein, 171 g carbohydrate and 1204 ml free water +50 ml q 6 hrs free water flush or per MD if on IVF +100 ml q4 hrs free water flush or per MD if not on additional fluids Recommendations to Physician: Begin above Comments: Pt consulted per vent and stroke protocol. Patient remains intubated and receiving propofol. No TF ordered currently. Noted elevated A1c of 7.7%, if blood glucose levels remain elevated, can trial Vital AF 1.2. Recommending Vital HP to meet protein demands with BMI and for lower K content(noted hyperkalemia with K of 5.1). x1 stool in last x24 hours. RD to follow. Assessment: Med/Surg History and Clinical Diagnoses: PMH significant for CVA, HTN, HLD, DM, CAD s/p stenting, tobacco use, JAMES, and COPD, transferred to [facility] due to acute ischemic stroke, seen in consultation for concern for right peritonsillar abscess. CT neck obtained showing small right peritonsillar phlegmon. Height: 177.8 cm (5' 10 ) Weight: 106 kg (233 lb 11 oz) BMI: Body mass index is 33.53 kg/m??. BMI Range: Obese Class 1 IBW/lb (Calculated) Male: 166 , Recent Weights/Methods 03/09/2017 0826 06/01/2017 0831 12/11/2021 1152 01/19/2022 0926 03/05/2022 1025 10/12/2022 1926 10/13/2022 0348 Weight: 104.3 kg (230 lb) 104.3 kg (230 lb) 72.6 kg (160 lb) 105.3 kg (232 lb 1.6 oz) 104 kg (229 lb 4.8 oz) 103 kg (227 lb) 106 kg (233 lb 11 oz) Weight Method (Utilize Scales): -- -- Stated -- -- -- Bedscale Wt Comments: reviewed, weight appears stable. Diet order accuracy Current diet order: NPO Nutrition recommendation: alter/change nutrition order P.O.Intake for the past 48 hrs: No data recorded Food Allergies: No known food allergies GI Concerns: None Chewing/Swallowing: Other (Comment) (intubated) Pain affecting intake: No Estimated Needs: KCAL: 0424-5395 (11-14kcal/kg of ABW) Protein (g): >150 (>2.0gm/kg of IBW) Fluid (ml): 1 ml/kcal Needs based on: Kcal/kg- (Comment) (106kg of ABW and 75kg of IBW) Recommended Access Route: TF Laboratory values: Recent Labs Component Name 10/12/22 2353 10/12/22202210/12/22202012/12/21 0205 12/11/21 1227 BUN 34* 27* 34* - 20 CREATININE 1.40* 0.91 1.36* - 1.40* NA 137 137 135* - 135* POTASSIUM 5.1* 3.3* 5.2* - 4.4 CL 110* 120* 109* - 99 CO2 18* 13* 16* - 27 GLUCOSE 278* 176* 242* - 188* CALCIUM 9.4 5.8* 9.1 - 9.7 PROT - - 7.2 - 7.2 ALB - - 3.5 - 3.7 TBILI - - 0.3 - 0.7 ALKPHOS - - 76 - 68 ALT - - 20 - 11 AST - - 14 - 13 ANIONGAP 14 7* 15 - 13 BCR 24* 30* 25* - 14 OSMOLALITY 302* 293 296 - 288 AGRATIO - - 0.9* - 1.1 EGFR 55* >90 57* - 56* - = values in this interval not displayed. Medications: Current Facility-Administered Medications Medication ??? *Hold/Avoid Medication ??? *Hold/Avoid Medication ??? 0.9% NaCl injection 3 mL And ??? 0.9% NaCl injection 1-10 mL ??? 0.9% NaCl injection 3 mL And ??? 0.9% NaCl injection 3 mL ??? acetaminophen (Tylenol) suppository 650 mg ??? albuterol (Proventil;Ventolin) (2.5 MG/3ML) 0.083% nebulizer solution 2.5 mg ??? albuterol-ipratropium (Duo-Neb) nebulizer solution 3 mL ??? ampicillin-sulbactam (Unasyn) 3 g in 0.9% NaCl IV 100 mL IVPB ??? artificial tears ophthalmic ointment ??? budesonide (Pulmicort) nebulizer suspension 500 mcg ??? chlorhexidine (Peridex) 0.12 % oral solution 15 mL ??? dexAMETHasone (Decadron) injection 10 mg ??? dextrose 10 % IV bolus Or ??? dextrose 10 % IV bolus ??? fentaNYL (PF) (Sublimaze) injection 50 mcg ??? glucagon (Glucagen) injection 1 mg ??? glucose (Diabetic Use) (Dex4 Glucose) oral liquid ??? glucose (Diabetic Use) oral gel ??? glucose chew tablet 4 tablet ??? insulin lispro (HumaLOG;ADMelog) 100 UNIT/ML pen 0-24 Units ??? iopamidol (Isovue 370) 76 % contrast ??? iopamidol (Isovue 370) 76 % contrast ??? labetalol (Normodyne; Trandate) injection 10 mg ??? labetalol (Normodyne; Trandate) injection 10 mg ??? nicotine (Nicoderm CQ) patch 21 mg ??? pantoprazole (Protonix) injection 40 mg ??? polyethylene glycol 3350 (Miralax) packet 17 g ??? propofol (Diprivan) infusion ??? salmeterol (Serevent) 50 MCG/ACT diskus inhaler 1 puff ??? senna-docusate (Senokot-S) tablet 1 tablet Skin/Wound: WDL Education needed: Stroke Nutrition Therapy Education Provided: Prior to Discharge Nutrition Care Process (1) Nutrition Diagnostic Statement: Inadequate protein-energy intake related to:: decreased ability to consume or tolerate adequate food and/or fluids due to illness as evidenced by:: estimated intake insufficient to meet requirements;oral intake less than .. Nutrition Diagnostic Statement Progress: New diagnostic statement established Nutrition Intervention: Enteral nutrition: Monitoring: GI, TF intake, WT, labs, medications Evaluation: Nutrition Goal: Total intake will meet estimated nutrient needs Nutrition Goal Timeframe: Throughout stay Nutrition Goal Progress: New goal established Ascom [id number] * Naima Doyle RN - 10/13/2022 12:24 PM CDTAssociated Order(s): IP CONSULT TO FLOAT TENDER; IP CONSULT TO FLOAT TENDER; IP CONSULTTO FLOAT TENDER I have been consulted due to the possibility or diagnosis of stroke, chart reviewed. Patient Name: Esperanza Chaparro Arrival: 10/12/20221913 EMS Activated Code Stroke: Yes Arrival Mode: Transfer from Outside Facility - [facility] Last Known Well: 10/12/2022 1500 Initial NIHSS Score: NIH Total: 16 (10/12/22 2145) Last Documented NIHSS Score: NIH Total: 18 (10/13/22 0800) Initial Blood Pressure: BP: 136/97 (10/12/22 1912) Current Blood Pressure: BP: 118/59 (10/13/22 1100) Stroke Risk Factors: Age, Carotid or Intracranial Stenosis, Diabetes mellitus, Heart or Peripheral Vascular Disease, Hyperlipidemia, Hypertension, Obesity/Inactivity, Sleep Apnea and Tobacco use Quality Measures - Risk Factor Modification Antithrombotic by day 2: Pending - s/p TNK <24 hours Antithrombotic: Aspirin VTE Prophylaxis by day 2: Received VTE Prophylaxis: Sequential Compression Device Anticoagulant if in Afib: NA CHRISTEN/ILR? NA Interventions? TNK - DTN 20 Minutes LDL= Recent Labs Component Name 10/13/22 0228 12/12/21 0205 LDLCALC 85 112* High Intensity Statin: Pending - Need to restart home Crestor 40 mg once NG in place. HGBA1C = Recent Labs Component Name 10/12/22 2231 12/11/21 1227 HGBA1C 7.7* 7.1* Appropriate Diet for patient based on HgBA1c: Diabetic/Cardiac I) HGBA1C >6.5 Desktop Publisher was not consulted due to patient condition. Patient intubated and sedated. Diabetes plan of care based on A1c: Patient's A1c is equal to or greater than 6.5%. For patients with diabetes (A1c >6.5%), SGLT-2 inhibitors or GLP-1 receptor agonists have been shown to reduce major adverse cardiovascular events. These medications require close follow up with PCP or yarn spinner and lab monitoring. Due to this reason, we have deferred treatment until outpatient follow up. Facility Manager Histology should be consulted to provide patient education. Patient will follow with PCP/Reconcilement Clerk after discharge for diabetes medications and continued disease management. Nursing Swallow Screen: Total Score of questionnaire (6 or greater did not advance to the water test): *Pending - Patient intubated.* Evaluated by Therapy: Pending Discharge Recommendation: Patient not medically stable for evaluation at this time. Written Stroke Education: Provided Education Personalized: Received Depression Screen Score = Pending PHQ-2 PHQ-9 Nursing pending course of action: 1) Complete stroke/TIA education daily. 2) Individualize stroke care plan, document daily. 3) Complete neuro checks and document as ordered by MD. 4) Complete NIHSS per MD orders. (If patient has an NIHSS deviation of 4 or greater from baseline, or per nursing judgement, please call Neurologist and repeat swallow screen evaluation.) 5) Complete depression screener for patient's diagnosed with stroke/TIA on day 2 or prior to discharge to evaluate the patient's potential for developing depression. Imaging: CT NECK SOFT TISSUE W CONT Result Date: 10/13/2022 IMPRESSION: 1.Findings concerning for right peritonsillar abscess with associated diffuse pharyngitis and extensive laryngeal edema, extending to the level of the supraglottic larynx, resulting in airway compromise status post endotracheal intubation. Preliminary findings were discussed with the patient's care provider, Dr. Brannon by Dr. Cleveland via telephone at 0248 on 10/13/2022 with readback comprehension and verification. > Dictated by Dean Cleveland M.D. (residential tech) Sundar Orourke MD have personally reviewed and interpreted this examination/study. > Interpreting Provider: Sundar Devine MD on 10/13/2022 10:[address] HEAD WO CONTRAST Result Date: 10/13/2022 IMPRESSION: 1.Suggestion of interval diffuse edema in the right MCA territory concerning for evolving right MCA territory ischemia. MRI of the brain is recommended for further evaluation.. 2.Additional chronic findings as outlined above. Results of this exam were communicated with closed loop confirmation to Dr. Mendenhall by Dr. Devine on 10/13/2022 at 9:54 AM with read back compression and verification. Report dictated by Romain Mckee MD, PhD (residential tech). Sundar Orourke MD have personally reviewed and interpreted this examination/study. > Interpreting Provider: Sundar Devine MD on 10/13/2022 10:[address] ANGIO BRAIN NECK STROKE Result Date: 10/12/2022 IMPRESSION: 1.Re-demonstrated long segment occlusion of the right ICA from the carotid bulb to the terminus with reconstitution of flow to the right SHEA and MCA via the miami of Arvizu. Diminished opacification of the right [...] communication. Report dictated by Gilbert Morrow MD (residential tech). Zelda Orourke MD, PhD have personally reviewed and interpreted this examination/study. > Interpreting Provider: Zelda Willams MD, PhD on 10/12/2022 8:[address] BRAIN - Stroke Result Date: 10/12/2022 IMPRESSION: 1.No acute intracranial hemorrhage. 2.Apparent hypodensity of the right anterior temporal lobe and insular region, which is nonspecific and may be attributable to motion artifact or possibly representing areas of evolving acute infarct. Recommend follow-up brain MRI without contrast forfurther evaluation. 3.Multiple chronic infarcts of the right [...] contrast. Results of this exam were verbally discussedby Dr. Zelda Willams with Dr. Brannon on 10/12/2022 at 7:44 PM for a Critical Stroke Protocol with readback confirmation and verification. The images were reviewed by attending physician Dr. Zelda Willamsprior to this communication. > Interpreting Provider: Zelda Willams MD, PhD on 10/12/2022 8:20 PM Thank you for allowing me to participate in the care of Esperanza Chaparro. Naima Doyle RN, BSN, CNRN, SCRN Evp, [facility] Office: [phone] Ascom: [phone] Email: [email or web address] Ananya Art RN - 10/13/2022 8:58 AM CDTAssociated Order(s): IP CONSULT TO PHYSICAL MED AND REHAB [facility] Rehab has initiated an evaluation per stroke protocol. Will continue to follow for medical stability and tolerance/participation in therapies. Per chart review, patient primary insurance is [place], and would need approval for community rehab. Thank you for the referral. Ananya Art RN, BSN Clinical Liaison [facility] [phone] * Jesica Cleveland - 10/13/2022 8:14 AM CDTAssociated Order(s): IP CONSULT TO CUSTOMS VERIFIER New patient to Stroke caseload Consult acknowledged Chart reviewed/Stroke Rounds Transferred from [facility], [facility] Stroke type: Ischemic Patient is currently undergoing medical interventions/evaluations Patient is not medically ready to transition to next level of care Post acute recommendation: Undetermined; Pending skilled therapy evaluations Insurance authorization is required; Payer/Plan Subscriber Name Rel Member # Group # [employer] ESPERANZA CHAPARRO Self [id number] [id number] Please refer to Nurse Fitting Room Checker's Stroke Psychosocial Assessment note for additional information SW will continue to follow for disposition needs as appropriate Thank you for the referral, NOHEMI España MBA Stroke Energy Auditor [facility] [phone] 10/13/2022 8:15 AM * Ehsan Kelly MD - 10/13/2022 1:03 AM CDT Images from the original note were not included. Otolaryngology-Head and Neck Surgery Consultation Note PATIENT INFORMATION Esperanza Chaparro 67 year old male Today's Date: 10/13/2022 CC: Chief Complaint Patient presents with ??? Weakness Pt BIBems from [facility] due to left sided deficit. Pt was seen at [facility] due to throat abscess then upon discharge nurses noticed that he was slurring speech and had left sided deficit. Pts last known well is 1500 10/12/2022. Pt uses walker at baseline. Pt is A/ox4 and is complaining of headache. VSS ??? Aphasia Reason for consult: R DIET AID Consulting Service: Anesthesia HPI/ROS/Allergies HPI: Esperanza Chaparro is a 67 year old male with a PMH significant for CVA, HTN, HLD, DM, CAD s/p stenting, tobacco use, JAMES, and COPD seen in consultation for concern for right peritonsillar abscess. Transferred to [facility] [place] ED on 10/12 due to concern for acute ischemic stroke in the setting of sudden onset left-sided face, arm, and leg weakness that he developed while seeking medical attention for a R peritonsillar abscess in the [place] ED. Per records in Care Everywhere, he had presented to another OSH ED on 10/11 and 10/12 due to sore throat. On 10/11, lab workup was unremarkable and was discharged home on amoxicillin. On 10/12, CT neck showed a right palatine peritonsillar collection/abscess (images unavailable) with recommendation for transfer for ENT evaluation, but patient reportedly declined. While in [facility] ICU, patient reportedly developed tachypnea and was placed on nonrebreather with O2 sats in mid 80s, bag masked to low 90s. ENT was contacted by anesthesia at around midnight after unsuccessful attempt at intubation at bedside due to pooling of blood in oropharynx (had received tPA). Anesthesia team was headed to OR for intubation at that time. Upon my arrival, patient was already intubated in OR (per anesthesia note, on third attempt, fiberoptic, grade 1 view, difficult 2/2 anatomy, swollen tonsils, copious blood). Per BALE SEWER, patient was complaining about sore throat earlier tonight; no drooling, tolerating secretions, no oropharyngeal bleeding. Allergies: Allergies Allergen Reactions ??? Pioglitazone Nausea and/or Vomiting ??? Hydralazine Nausea and/or Vomiting ??? Lisinopril Other ??? Metformin Diarrhea ??? Simvastatin Other Pt reports hot flashes Review of Systems (negative unless bold): unable to be obtained due to patient status PMH/PSH/SH/FH/Meds PAST MEDICAL HISTORY Past Medical History: Diagnosis Date ??? Atherosclerosis of coronary artery ??? Chronic obstructive pulmonary disease (COPD) ([facility] ??? Essential hypertension ??? History of diabetes mellitus ??? MD (myocardial infarction) ([facility]) ??? Sleep apnea Pt states he was dx with sleep apnea, but cpap did not help ??? Snoring ??? SOB (shortness of breath) PAST SURGICAL HISTORY Past Surgical History: Procedure Laterality Date ??? Back Surgery x2 ??? Hernia Repair bilateral inguinal hernia repair ??? PILONIDAL CYST RESECTION SOCIAL HISTORY: Social History Tobacco Use ??? Smoking status: Every Day Packs/day: 1.00 Types: Cigarettes ??? Smokeless tobacco: Never Vaping Use ??? Vaping status: Never Used Substance Use Topics ??? Alcohol use: Not Currently ??? Drug use: No FAMILY HISTORY Non-contributory. MEDICATIONS No current facility-administered medications on file prior to encounter. Current Outpatient Medications on File Prior to Encounter Medication Sig Dispense Refill ??? acetaminophen (Tylenol) 325 MG tablet Take 650 mg by mouth every 4 hours as needed for Fever orPain Maximum allowable Acetaminophen amount = 4 Grams (4000 mg) / 24 hours. ??? albuterol HFA (Proventil; Ventolin; Proair) 108 (90 Base) MCG/ACT inhaler Inhale 2 puffs by mouth 4 times daily as needed for Shortness of Breath ??? aspirin EC (Ecotrin) 81 MG tablet Take 81 mg by mouth once daily ??? brinzolamide-brimonidine (Simbrinza) 1-0.2 % ophthalmic suspension Instill 1 drop into left eye3 times daily Per patient, he takes prn when he feels pressure in his eye (~2-3 times per week) ??? cabergoline (Dostinex) 0.5 MG tablet 1 (one) tablet ??? carboxymethylcellulose 1 % ophthalmic gel INSTILL 1 DROP INTO AFFECTED EYE(S) FOUR TIMES A DAY NEEDED FOR DRY EYES ??? carvedilol (Coreg) 12.5 MG tablet 0.5 (one-half) tablet ??? empagliflozin (Jardiance) 25 MG tablet Take 12.5 mg by mouth once daily Take 1/2 tablet (12.5 mg) daily ??? ezetimibe (Zetia) 10 MG tablet 0.5 (one-half) tablet ??? fluticasone-salmeterol (Advair/Wixela) 100-50 MCG/ACT inhaler Inhale 1 puff by mouth 2 times daily Per patient, he gets the medication filled but doesn't take it because of the inconvenience of having to rinse his mouth out after use. ??? gabapentin (Neurontin) 100 MG capsule 1 (one) capsule ??? hydroCHLOROthiazide (Hydrodiuril) 25 MG tablet 0.5 (one-half) tablet ??? lidocaine (Lidoderm) 5 % patch Apply 1 patch to skin once daily For back pain (Patient not taking: Reported on 01/19/2022) ??? nitroGLYCERIN (Nitrostat) 0.3 MG tablet 1 (one) tablet ??? polyvinyl alcohol-povidone PF 1.4-0.6 % ophthalmic solution INSTILL 1 DROP IN BOTH EYES FOUR TIMES A DAY FOR DRY EYES ??? rosuvastatin (Crestor) 40 MG tablet Take 40 mg by mouth every evening ??? ticagrelor (Brilinta) 90 MG tablet Take 90 mg by mouth 2 times daily ??? tiotropium (Spiriva Respimat) 2.5 MCG/ACT inhaler Inhale 2 puffs by mouth once daily (Patient not taking: Reported on 01/19/2022) Physical Exam Vitals: BP (!) 180/86 Pulse 81 Temp 97.4 ??F (Oral) Resp 18 Wt 103 kg (227 lb) SpO2 92% BMI 32.57 kg/m?? PHYSICAL EXAM General: intubated, sedated CV: RR HEENT: ETT in place limiting view of oropharynx. Mild pooling of blood in oropharynx. Neck soft, noappreciable LAD Respiratory: Mechanically ventilated Extremities: WWP Labs/Imaging/Micro/Pathology Recent Labs: CBC Recent Labs Component Name 10/12/22235201/19/2248 12/14/21 0255 WBC 22.0* 8.5 7.8 HGB 13.4 12.7 12.0 HCT 41.3 38.6 36.2 PLTCOUNT 237 237 260 BMP Recent Labs Component Name 10/12/22235210/12/22202210/12/22202001/19/22 0948 12/14/21 0255 POTASSIUM 5.1* 3.3* 5.2* - 5.5* CO2 18* 13* 16* - 22 BUN 34* 27* 34* - 22 CREATININE 1.40* 0.91 1.36* - 1.40* GLUCOSE 278* 176* 242* - 138* CALCIUM 9.4 5.8* 9.1 - 9.6 PHOS 3.5 - 2.8 - 3.7 - = values in this interval not displayed. LFTs Recent Labs Component Name 10/12/22202012/11/21 1227 AST 14 13 ALT 20 11 ALKPHOS 76 68 Coags Recent Labs Component Name 10/12/22202001/19/22 0948 12/11/21 1227 PT 13.8 12.4 13.0 INR 1.1 0.9 1.0 PTT - - 35.2 ABG Recent Labs Component Name 10/13/2222710/12/222352 PH 7.28* 7.12* PO2 115* 59* PCO2 40 62* BE -7.5* -10.0* Recent Imaging/Studies: CT neck reviewed: small right peritonsillar hypodensity, likely consistent with phlegmon, new edematous changes to supraglottis, hypopharynx likely related to multiple intubation attempts Recent Micro/Pathology: No new relevant cultures or biopsies. ASSESSMENT & PLAN Esperanza Chaparro is a 67 year old male with a PMH significant for CVA, HTN, HLD, DM, CAD s/p stenting,tobacco use, JAMES, and COPD, transferred to [facility] due to acute ischemic stroke, seen in consultation for concern for right peritonsillar abscess. CT neck obtained showing small right peritonsillar phlegmon. Continue IV antibiotics. Agree with unasyn Please page ENT with questions/concerns. Final plan subject to change until discussed with senior resident and staffed with attending physician. Aliya Browning MD 10/13/2022 Addendum: Plan - Recommend Unasyn x7d - Consider airway dose steroids (10mg Decadron q8h x3 doses) - Would recommend consideration of extubation once cuff leak is present. Patient to be staffed with attending today, will update team with any changes in plan. Ehsan Kelly MD Associated attestation - Chapincito Glass MD - 10/13/2022 10:05 PM CDT I have seen and examined the patient. Parts of the note were documented by the staff and/or resident physician. I have reviewed all documentation and agree with the note with the following additions/exceptions: I have reviewed the patient's neck CT showing small right peritonsillar abscess. On my exam, this area is without exophytic mass or mucosal ulceration. His history is more consistent with infectious than neoplastic. There are no suspicious neck nodes on exam. Though the small abscess is not expected to cause airway compromise, it is worth aspirating/drainage attempt as the patient is intubated and sedated. However, most of his infection is soft tissue edema and expected to respond to antibiotics. Chapincito Glass MD Title Manager Otolaryngology- Head and Neck Surgery documented in this encounter ED Notes * Samuel Watkins RN - 10/12/2022 9:17 PM CDT Report called to nurse taking room 317. * Samuel Watkins RN - 10/12/2022 8:43 PM CDT [facility] sided deficit. Pt was seen at [facility] due to throat abscess then upon discharge nurses noticed that he was slurring speech and had left sided deficit. Pts last known well is 1500 10/12/2022. Pt uses walker at baseline. Pt is A/ox4 and is complaining of headache. VSS * Naseem Randolph MD - 10/12/2022 8:33 PM CDT [facility] EMERGENCY DEPARTMENT ENCOUNTER HISTORICAL INFORMATION Primary Care Doctor: Ly Valenzuela MD Patient information was obtained primarily from the patient, relative(s), EMS personnel and past medical records History/Exam limitations: none, mental status and acuity of illness Interpretor services: no I have personally seen, examined and been fully involved in the management of this patient with theResident I confirm history, exam, assessment and plan Discussed. In addition I note: CHIEF COMPLAINT Weakness (Pt [facility] due to left sided deficit. Pt was seen at [facility] due to throat abscess then upon discharge nurses noticed that he was slurring speech and had left sided deficit. Pts last known well is 1500 10/12/2022. Pt uses walker at baseline. Pt is A/ox4 and is complaining of headache. VSS) and Aphasia HPI Esperanza Chaparro is a 67 year old male who presents from the [place] for possible stroke. He was seen theretoday with some difficulty with swallowing and then at some point during the ED visit, he was notedto not to move his left side. Unclear exact and last time normal. Looking the documentation considering about 2:00 a.m. was at least normal at about 4:00 a.m. was noted to have some difficulty on theleft side. There is history of prior stroke. Patient states that he has been feeling weak but is worse today. He could not give us the time. See below but we were able to decipher after speaking with family looking through his records that we think his last known normal was somewhere between 2:00 p.m. and 4:00 p.m. today PAST MEDICAL HISTORY Past Medical History: Diagnosis Date ??? Atherosclerosis of coronary artery ??? Chronic obstructive pulmonary disease (COPD) (CMS/HCC) ??? Essential hypertension ??? History of diabetes mellitus ??? MD (myocardial infarction) (CMS/HCC) ??? Sleep apnea Pt states he was dx with sleep apnea, but cpap did not help ??? Snoring ??? SOB (shortness of breath) SURGICAL HISTORY Past Surgical History: Procedure Laterality Date ??? Back Surgery x2 ??? Hernia Repair bilateral inguinal hernia repair ??? PILONIDAL CYST RESECTION CURRENT MEDICATIONS No current outpatient medications on file. ALLERGIES Allergies Allergen Reactions ??? Pioglitazone Nausea and/or Vomiting ??? Hydralazine Nausea and/or Vomiting ??? Lisinopril Other ??? Metformin Diarrhea ??? Simvastatin Other Pt reports hot flashes FAMILY HISTORY No family history on file. SOCIAL HISTORY Social History Socioeconomic History ??? Marital status: Single Tobacco Use ??? Smoking status: Every Day Packs/day: 1.00 Types: Cigarettes ??? Smokeless tobacco: Never Vaping Use ??? Vaping status: Never Used Substance and Sexual Activity ??? Alcohol use: Not Currently ??? Drug use: No REVIEW OF SYSTEMS limited Yes ROS otherwise negative for acute new changes unless specified in HPI See HPI for further details. PHYSICAL EXAM VITAL SIGNS: BP (!) 198/90 Pulse 81 Temp 98.3 ??F (36.8 ??C) (Temporal) Resp 17 Wt 103 kg (227 lb) SpO2 93% Constitutional: Well developed, Well nourished, very sleepy but will follow simple commands HENT: Normocephalic, Atraumatic, Oropharynx moist, Eyes: Rt gaze preference, OD 2mm, OS surgical Neck- Normal range of motion, no rigidity Respiratory: Normal breath sounds, No respiratory distress. Cardiovascular: Normal heart rate, Normal rhythm GI: Bowel sounds normal, Soft, No tenderness, Musculoskeletal: Intact distal pulses, No edema, Integument: Warm, Dry, No erythema, Neurologic: sleepy with arouses and follows commands on rt. Gaze dev to right. Neglect of leg. Doesnot move left arm or leg -- flaccid and no sensation. Dysarthric Psychiatric: NA PULSE OXIMETRY INTERPRETATION Saturation: 93% Oxygen Delivery: ra RHYTHM STRIP INTERPRETATION (interpreted by ED provider) Rhythm: nsr Problem/s: 1.stroke vs other DDX: 1.stroke 2.bleed 3.other Plan: stroke w/u evaluation ED COURSE & MEDICAL DECISION MAKING Pertinent Labs & Imaging studies reviewed. (See chart for details) EKG (interpreted by ED provider) Normal sinus rhythm with a rate of [address] elevation, nonspecific as T T-wave abnormalities RADIOLOGY I have independently reviewed all imaging for today's visit. ct brain, Old stroke. Labs Reviewed COMPREHENSIVE METABOLIC PANEL - Abnormal; Notable for the following components: Result Value BUN 34 (*) Creatinine 1.36 (*) Sodium 135 (*) Potassium 5.2 (*) Chloride 109 (*) CO2 16 (*) Glucose 242 (*) BUN/Creatinine Ratio 25 (*) Albumin/Globulin Ratio 0.9 (*) eGFR by CKD-EPI 57 (*) All other components within normal limits BASIC METABOLIC PANEL (CALCIUM TOTAL) - Abnormal; Notable for the following components: BUN 27 (*) Potassium 3.3 (*) Chloride 120 (*) CO2 13 (*) Glucose 176 (*) Calcium 5.8 (*) Anion Gap 7 (*) BUN/Creatinine Ratio 30 (*) All other components within normal limits PT-INR SLH - Normal TROPONIN-I HIGH SENSITIVE BASELINE + 1HR - Normal MAGNESIUM BLOOD - Normal PHOSPHORUS BLOOD - Normal HEMOGLOBIN A1C TROPONIN-I HIGH SENSITIVE REFLEX 1HOUR URINE DRUG SCREEN IMMUNOASSAY URINALYSIS REFLEX TO MICROSCOPIC NO CULTURE MAGNESIUM BLOOD PHOSPHORUS BLOOD CBC W AUTO DIFFERENTIAL BASIC METABOLIC PANEL (CALCIUM TOTAL) TYPE + SCREEN PANEL CT ANGIO BRAIN NECK STROKE Final Result EXAM: CT ANGIO BRAIN NECK STROKE, DATE/TIME OF EXAM: 10/12/2022 7:42 PM, LOCATION: [facility] HISTORY: Code Stroke EXAMINATION: CT angiogram images [...] right middle cerebral artery (MCA) via the miami of Arvizu/patent anterior communicating artery. Diminished opacification [...] the right SHEA and MCA via the miami of Arvizu. Diminished opacification of the right [...] were reviewed by attending physician Dr. Zelda Wlilams prior to this communication. Report dictated by Gilbert Morrow MD (residential tech). I, Zelda Willams MD, PhD have personally reviewed and interpreted this examination/study. > Interpreting Provider: Zelda Willams MD, PhD on 10/12/2022 8:[address] BRAIN - Stroke Final Result EXAM: CT BRAIN STROKE, DATE/TIME OF EXAM: 10/12/2022 7:32 PM, LOCATION: [facility] HISTORY: Code Stroke EXAMINATION: CT scan of [...] infarct involving the right posterior cerebral artery (BOARD MEMBER) vascular territory. Multiple small chronic lacunes of [...] Willams MD, PhD on 10/12/2022 8:[address] HEAD NON CONTRAST (Results Pending) XR CHEST 1VW PORTABLE (Results Pending) MRI BRAIN WO CONTRAST (Results Pending) CONSULTS: Yes PROGRESS NOTES [facility]. There is no physical exam related to his mental status or neuro examat the hospital when he got there little bit after 1. There is a notation discussion about consideration for admission for PT OT at about 2:00 a.m.. The node was noted that he could get into his wheelchair around 4:00 a.m. and at 5:00 a.m. so in spoke to his mother and said this is new and they dida CT which shows no new acute changes. Looking at old reports he has a history of a right ICA occlusion. We spoke to the patient's mother and sister on the phone. He normally gets around with a walker. According the sister, he was up moving around as usual. However they do state that his speech and he was off over the past week and he has been dropping things with his left arm however he was able to use it today. Last known normal about 11 30 this morning prior to going to the [place] and get that point the documentations limited we suspect that he must been okay up until at least 2:00 a.m. patient does state that he has been feeling little bit weak on the left but he normally can move the left side and that just started today that a cannot move it. He does complain of a headache. He denies any chest pain he does not take any blood thinners Due to the complexity it did take a sometime to decipher we think the last no now well was. Cells like [facility] He they had ENT cm for a possible small subclinical peritonsillar abscess cause of difficulty swallowing. He was to be discharged. There was a discussion around 2:00 a.m. so Neurology spoke to their attending the plan because of the significant deficits that they are going to give him tPA. He was admitted to neuro ICU Medications given in ED: Yes Social determinants of health: unk Amount and/or Complexity of Data Reviewed medical complexity: Triage notes and available nursing notes reviewed , Clinical lab tests: orderedand reviewed, Tests in the radiology section of CPT??: ordered and independent interpretation, Decide to obtain previous medical records or to obtain history from someone other than the patient: yes,see HPI , Review and summarize past medical records: yes and Discuss the patient with other provider s: yes ?? ED Attending Critical Care Note: Yes Pt. is at high risk for complications and morbidity or mortality Yes Time involved in the performance of separately billable procedures, teaching, reviewing education material was not counted towards critical care time. Time with bedside care: 25 minutes Time in discussion with family: 15 minutes Time reviewing old medical records: 10 minutes Time reviewing labs/radiographs: 10 minutes Time with Photography And Prints Curator services: 10 minutes I was directly involved in the patients care for a Total Critical Care Time of: 70 minutes NIH Stroke Scale Interval: on arrival Person Administering Scale: Naseem Randolph MD Administer stroke scale items in the order listed. Record performance in each category after each subscale exam. Do not go back and change scores. Follow directions provided for each exam technique. Scores should reflect what the patient does, not what the clinician thinks the patient can do. The clinician should record answers while administering the exam and work quickly. Except where indicated, the patient should not be coached (i.e., repeated requests to patient to make a special effort). 1a Level of consciousness: 1=not alert but arousable by minor stimulation to obey, answer or respond 1b. LOC questions: 1=Performs one task correctly 1c. LOC commands: 1=Performs one task correctly 2. Best Gaze: 1=partial gaze palsy 3. Visual: 0=No visual loss 4. Facial Palsy: 1=Minor paralysis (flattened nasolabial fold, asymmetric on smiling) 5a. Motor left arm: 4=No movement 5b. Motor right arm: 0=No drift, limb holds 90 (or 45) degrees for full 10 seconds 6a. motor left le=No movement 6b Motor right le=No drift, limb holds 90 (or 45) degrees for full 10 seconds 7. Limb Ataxia: 1=Present in one limb 8. Sensory: 2=Severe to total sensory loss; patient is not aware of being touched in face, arm, leg 9. Best Language: 1=Mild to moderate aphasia; some obvious loss of fluency or facility of comprehension without significant limitation on ideas expressed or form of expression. 10. Dysarthria: 1=Mild to moderate, patient slurs at least some words and at worst, can be understood with some difficulty 11. Extinction and Inattention: 1=Visual, tactile, auditory, spatial or personal inattention or extinction to bilateral simultaneous stimulation in one of the sensory modalities 12. Distal motor function: 1=At least some extension after 5 seconds, but is not fully extended. Any movement of the fingers which is not in response to a command is not scored Total: 20 FINAL IMPRESSION 1. Weakness 2. Left-sided weakness Medications 0.9% NaCl injection 3 mL (has no administration in time range) And 0.9% NaCl injection 1-10 mL (has no administration in time range) iopamidol (Isovue 370) 76 % contrast (85 mL Intravenous $ Given - Contrast 10/12/221930) 0.9% NaCl infusion ( Intravenous $ New Bag/Syringe 10/12/222025) 0.9% NaCl injection 3 mL (3 mL Intracatheter $ Given 10/12/222026) And 0.9% NaCl injection 3 mL (has no administration in time range) *Hold/Avoid Medication (has no administration in time range) *Hold/Avoid Medication (has no administration in time range) labetalol (Normodyne; Trandate) injection 10 mg (has no administration in time range) labetalol (Normodyne; Trandate) injection 10 mg (10 mg Intravenous $ Given 10/12/222224) nicotine (Nicoderm CQ) patch 21 mg (has no administration in time range) tiotropium (Spiriva Respimat) 2.5 MCG/ACT inhaler 2 puff (has no administration in time range) salmeterol (Serevent) 50 MCG/ACT diskus inhaler 1 puff (has no administration in time range) ampicillin-sulbactam (Unasyn) 3 g in 0.9% NaCl IV 100 mL IVPB (has no administration in time range) albuterol (Proventil;Ventolin) (2.5 MG/3ML) 0.083% nebulizer solution 2.5 mg (has no administrationin time range) glucose (Diabetic Use) (Dex4 Glucose) oral liquid (has no administration in time range) glucose (Diabetic Use) oral gel (has no administration in time range) glucose chew tablet 4 tablet (has no administration in time range) dextrose 10 % IV bolus (has no administration in time range) Or dextrose 10 % IV bolus (has no administration in time range) glucagon (Glucagen) injection 1 mg (has no administration in time range) insulin lispro (HumaLOG;ADMelog) 100 UNIT/ML pen 0-6 Units (has no administration in time range) tenecteplase (TNKase) injection 25 mg (25 mg Intravenous $ Given 10/12/221933) 0.9% NaCl injection 10 mL (10 mL Intracatheter $ Given 10/12/221934) morphine injection 4 mg (4 mg Intravenous $ Given 10/12/222041) DISPOSITION: Admit: ICU NASEEM RANDOLPH M.D. Emergency Medicine Physician I use M-modal dictation * Janell Peralta MD - 10/12/2022 8:31 PM CDT Esperanza Chaparro [id number] [facility] 3N ICU History Chief Complaint Patient presents with ??? Weakness Pt BIBems from [facility] due to left sided deficit. Pt was seen at [facility] due to throat abscess then upon discharge nurses noticed that he was slurring speech and had left sided deficit. Pts last known well is 1500 10/12/2022. Pt uses walker at baseline. Pt is A/ox4 and is complaining of headache. VSS ??? Aphasia HPI Esperanza Chaparro is a 67-year-old man, with history of ischemic infarct in the right hemisphere in 12/2021, hypertension, hyperlipidemia, diabetes, coronary artery disease status post stenting, JAMES, COPD, [facility]. He was seen there today for some difficultly swallowing and concerns for peritonsillar abscess when during his workup, he was noted to have altered mental status and left-sided weakness. [facility] documentation was reviewed by myself and Dr. Randolph, andlast known well is unclear. CT head done at outside hospital was negative for any hemorrhagic stroke. Patient resides with his sister who was contacted and stated that he has had several weeks slurringof his words. The morning of presentation, sister confirm the patient was utilizing his upper and lower extremities at baseline with a walker. She last saw him 11:00 a.m. when [facility] their mother. Per patient, he states that he has been feeling weak but worse today. On arrival, code stroke was activated. Patient complained of a headache. POC glucose 285. NIH 21. Past Medical History: Diagnosis Date ??? Atherosclerosis of coronary artery ??? Chronic obstructive pulmonary disease (COPD) (CMS/HCC) ??? Essential hypertension ??? History of diabetes mellitus ??? MD (myocardial infarction) (CMS/HCC) ??? Sleep apnea Pt states he was dx with sleep apnea, but cpap did not help ??? Snoring ??? SOB (shortness of breath) Past Surgical History: Procedure Laterality Date ??? Back Surgery x2 ??? Hernia Repair bilateral inguinal hernia repair ??? PILONIDAL CYST RESECTION No family history on file. Social History Socioeconomic History ??? Marital status: Single Spouse name: Not on file ??? Number of children: Not on file ??? Years of education: Not on file ??? Highest education level: Not on file Occupational History ??? Not on file Tobacco Use ??? Smoking status: Every Day Packs/day: 1.00 Types: Cigarettes ??? Smokeless tobacco: Never Vaping Use ??? Vaping status: Never Used Substance and Sexual Activity ??? Alcohol use: Not Currently ??? Drug use: No ??? Sexual activity: Not on file Other Topics Concern ??? Not on file Social History Narrative ??? Not on file Social Determinants of Health Financial Resource Strain: Not on file Food Insecurity: No Food Insecurity (12/12/2021) Hunger Vital Sign ??? Worried About Running Out of Food in the Last Year: Never true ??? Ran Out of Food in the Last Year: Never true Transportation Needs: Not on file Stress: Not on file Housing Stability: Not on file Review of Systems ROS limited secondary to acuity of situation. Physical Exam BP 117/58 Pulse 50 Temp 97.4 ??F (36.3 ??C) (Axillary) Resp 12 Ht 1.778 m (5' 10 ) Wt 106kg (233 lb 11 oz) SpO2 97% BMI 33.53 kg/m?? Physical Exam Vitals reviewed. Constitutional: Appearance: He is obese. Eyes: Comments: Right gaze deviation. Cardiovascular: Rate and Rhythm: Normal rate. Pulses: Normal pulses. Heart sounds: Normal heart sounds. Pulmonary: Effort: Pulmonary effort is normal. Breath sounds: Normal breath sounds. Abdominal: Palpations: Abdomen is soft. Tenderness: There is no abdominal tenderness. Musculoskeletal: Right lower leg: No edema. Left lower leg: No edema. Neurological: Mental Status: He is alert. Comments: Flaccid paralysis in left upper and left lower extremity. Medications No current outpatient medications on file. Procedures Procedures Lab/SPO2 Interpretation Hospital Encounter on 10/12/22 COMPREHENSIVE METABOLIC PANEL Result Value Ref Range BUN 34 (H) 7 - 26 mg/dL Creatinine 1.36 (H) 0.71 - 1.16 mg/dL Sodium 135 (L) 136 - 145 mmol/L Potassium 5.2 (H) 3.5 - 4.5 mmol/L Chloride 109 (H) 98 - 107 mmol/L CO2 16 (L) 22 - 29 mmol/L Glucose 242 (H) 70 - 115 mg/dL Calcium 9.1 8.4 - 10.2 mg/dL Protein Total 7.2 6.0 - 8.3 g/dL Albumin 3.5 3.4 - 5.0 g/dL Bilirubin Total 0.3 0.2 - 1.2 mg/dL Alkaline Phosphatase 76 40 - 150 U/L ALT 20 5 - 55 U/L AST 14 5 - 34 U/L Anion Gap 15 8 - 18 BUN/Creatinine Ratio 25 (H) 7 - 23 Osmolality Calculated 296 270 - 300 mOsm/kg Albumin/Globulin Ratio 0.9 (L) 1.1 - 2.3 eGFR by CKD-EPI 57 (L) >=90 mL/min/1.73 m2 PT-INR [facility] Result Value Ref Range PT 13.8 12.1 - 14.8 Seconds INR 1.1 See Comment TROPONIN-I HIGH SENSITIVE BASELINE + 1HR Result Value Ref Range Troponin I High Sensitive 13 <=35 ng/L HEMOGLOBIN A1C Result Value Ref Range Hemoglobin A1c 7.7 (H) <=5.6 % Estimated Average Glucose 174 mg/dL MAGNESIUM BLOOD Result Value Ref Range Magnesium 1.8 1.6 - 2.6 mg/dL PHOSPHORUS BLOOD Result Value Ref Range Phosphorus 2.8 2.8 - 5.1 mg/dL BASIC METABOLIC PANEL (CALCIUM TOTAL) Result Value Ref Range BUN 27 (H) 7 - 26 mg/dL Creatinine 0.91 0.71 - 1.16 mg/dL Sodium 137 136 - 145 mmol/L Potassium 3.3 (L) 3.5 - 4.5 mmol/L Chloride 120 (H) 98 - 107 mmol/L CO2 13 (L) 22 - 29 mmol/L Glucose 176 (H) 70 - 115 mg/dL Calcium 5.8 (LL) 8.4 - 10.2 mg/dL Anion Gap 7 (L) 8 - 18 BUN/Creatinine Ratio 30 (H) 7 - 23 Osmolality Calculated 293 270 - 300 mOsm/kg eGFR by CKD-EPI >90 >=90 mL/min/1.73 m2 TROPONIN-I HIGH SENSITIVE REFLEX 1HOUR Result Value Ref Range Troponin I High Sensitive 14 <=35 ng/L Delta Troponin I HS URINE DRUG SCREEN IMMUNOASSAY Result Value Ref Range Amphetamines Screen Urine Negative Negative: < 1000 ng/mL Barbiturates Screen Urine Negative Negative: < 200 ng/mL Benzodiazepine Screen Urine Negative Negative: < 200 ng/mL Opiates Urine Positive (Abnormal) Negative: < 300 ng/mL Cocaine Metabolites Urine Negative Negative: < 300 ng/mL Phencyclidine Screen Urine Negative Negative: < 25 ng/ml Cannabinoids Screen Urine Negative Negative: <50 ng/mL Methadone Screen Urine Negative Negative: < 300 ng/mL Fentanyl Screen Urine Negative Negative: <1.5 ng/mL URINALYSIS REFLEX TO MICROSCOPIC NO CULTURE Specimen: Urine Clean Catch Result Value Ref Range Color UA Yellow Straw, Yellow Clarity UA Slt Cloudy (Abnormal) Clear Specific [place] UA 1.039 (H) 1.005 - 1.030 pH UA 5.0 5.0 - 8.0 pH Protein UA Negative Negative Glucose UA 3+ (Abnormal) Negative Ketone UA Negative Negative Bilirubin UA Negative Negative Blood UA Negative Negative Nitrite UA Negative Negative Leukocyte Esterase Negative Negative Urobilinogen UA Negative Negative mg/dL RBC UA 0-2 None Seen, 0-2, 3-5 /HPF WBC UA 0-5 None Seen, 0-5 /HPF Bacteria UA Trace (Abnormal) None /HPF Squamous Epithelial Cells UA None Seen None Seen, 0-2, 3-5 /HPF Mucus UA 1+ /LPF MAGNESIUM BLOOD Result Value Ref Range Magnesium 1.9 1.6 - 2.6 mg/dL PHOSPHORUS BLOOD Result Value Ref Range Phosphorus 3.5 2.8 - 5.1 mg/dL CBC W AUTO DIFFERENTIAL Result Value Ref Range WBC 22.0 (H) 3.5 - 10.5 10??3/uL RBC 4.62 4.30 - 5.70 10??6/uL Hemoglobin 13.4 12.0 - 17.6 g/dL Hematocrit 41.3 35.2 - 51.7 % MCV 89.4 80.7 - 98.3 fL MCH 29.0 26.7 - 34.0 pg MCHC 32.4 30.8 - 35.9 g/dL RDW-SD 48.0 36.0 - 50.0 fL RDW-CV 14.6 11.2 - 14.8 % Platelet Count 237 150 - 400 10??3/uL MPV 9.1 (L) 9.4 - 12.9 fL nRBC Absolute 0.00 0 10??3/uL nRBC Auto 0.0 0 /100 WBC Neutrophils % 87.8 (H) 35.0 - 70.0 % Lymphocytes % 6.6 (L) 20.0 - 43.0 % Monocytes % 4.6 (L) 5.0 - 13.0 % Eosinophils % 0.0 0.0 - 6.0 % Basophil % 0.2 0.0 - 2.0 % Neutrophils Absolute 19.34 (H) 1.60 - 7.00 10??3/uL Lymphocyte Absolute 1.46 1.10 - 3.90 10??3/uL Monocytes Absolute 1.02 0.26 - 1.07 10??3/uL Eosinophils Absolute 0.00 0.00 - 0.47 10??3/uL Basophils Absolute 0.04 0.00 - 0.08 10??3/uL Immature Granulocytes % 0.8 0.0 - 1.0 % Immature Granulocytes Absolute 0.17 BASIC METABOLIC PANEL (CALCIUM TOTAL) Result Value Ref Range BUN 34 (H) 7 - 26 mg/dL Creatinine 1.40 (H) 0.71 - 1.16 mg/dL Sodium 137 136 - 145 mmol/L Potassium 5.1 (H) 3.5 - 4.5 mmol/L Chloride 110 (H) 98 - 107 mmol/L CO2 18 (L) 22 - 29 mmol/L Glucose 278 (H) 70 - 115 mg/dL Calcium 9.4 8.4 - 10.2 mg/dL Anion Gap 14 8 - 18 BUN/Creatinine Ratio 24 (H) 7 - 23 Osmolality Calculated 302 (H) 270 - 300 mOsm/kg eGFR by CKD-EPI 55 (L) >=90 mL/min/1.73 m2 BLOOD GASES ART + COOX PANEL Result Value Ref Range pH Arterial 7.12 (LL) 7.35 - 7.45 pH pO2 Arterial 59 (L) 80 - 100 mmHg pCO2 Arterial 62 (H) 35 - 45 mmHg HCO3 Arterial 20.2 20.0 - 30.0 mmol/L BE Arterial -10.0 (L) -2.0 - 2.0 mmol/L Oxyhemoglobin Arterial 85.2 % Dexoyhemoglobin (HHB) % 12.2 % Methemoglobin <0.8 0.0 - 2.0 % Carboxyhemoglobin 2.1 (H) 0.0 - 2.0 % O2 Content Arterial 16.9 Interpret within clinical context ml/dL Hemoglobin by COOX 14.1 12.0 - 17.6 g/dL O2 Saturation Arterial 88 (L) 90 - 100 % FI O2 Arterial 100.0 % BLOOD GASES ART + COOX PANEL Result Value Ref Range pH Arterial 7.28 (L) 7.35 - 7.45 pH pO2 Arterial 115 (H) 80 - 100 mmHg pCO2 Arterial 40 35 - 45 mmHg HCO3 Arterial 18.8 (L) 20.0 - 30.0 mmol/L BE Arterial -7.5 (L) -2.0 - 2.0 mmol/L Oxyhemoglobin Arterial 96.9 % Dexoyhemoglobin (HHB) % 0.0 % Methemoglobin <0.8 0.0 - 2.0 % Carboxyhemoglobin 2.4 (H) 0.0 - 2.0 % O2 Content Arterial 16.8 Interpret within clinical context ml/dL Hemoglobin by COOX 12.2 12.0 - 17.6 g/dL O2 Saturation Arterial 100 90 - 100 % FI O2 Arterial 50.0 % LIPID PROFILE Result Value Ref Range Cholesterol Total 148 <200 mg/dL HDL 40 (L) >40 mg/dL LDL Calculated 85 <100 mg/dL Triglycerides 117 <150 mg/dL BLOOD GASES ART + COOX PANEL Result Value Ref Range pH Arterial 7.31 (L) 7.35 - 7.45 pH pO2 Arterial 134 (H) 80 - 100 mmHg pCO2 Arterial 37 35 - 45 mmHg HCO3 Arterial 18.6 (L) 20.0 - 30.0 mmol/L BE Arterial -7.0 (L) -2.0 - 2.0 mmol/L Oxyhemoglobin Arterial 97.5 % Dexoyhemoglobin (HHB) % 0.0 % Methemoglobin 1.0 0.0 - 2.0 % Carboxyhemoglobin 1.4 0.0 - 2.0 % O2 Content Arterial 16.7 Interpret within clinical context ml/dL Hemoglobin by COOX 12.0 12.0 - 17.6 g/dL O2 Saturation Arterial 100 90 - 100 % FI O2 Arterial 50.0 % CBC W AUTO DIFFERENTIAL Result Value Ref Range WBC 15.1 (H) 3.5 - 10.5 10??3/uL RBC 4.01 (L) 4.30 - 5.70 10??6/uL Hemoglobin 11.8 (L) 12.0 - 17.6 g/dL Hematocrit 35.4 35.2 - 51.7 % MCV 88.3 80.7 - 98.3 fL MCH 29.4 26.7 - 34.0 pg MCHC 33.3 30.8 - 35.9 g/dL RDW-SD 48.9 36.0 - 50.0 fL RDW-CV 14.9 (H) 11.2 - 14.8 % Platelet Count MPV Immature Platelet Fraction nRBC Absolute 0.00 0 10??3/uL nRBC Auto 0.0 0 /100 WBC Neutrophils % 86.7 (H) 35.0 - 70.0 % Lymphocytes % 6.4 (L) 20.0 - 43.0 % Monocytes % 6.1 5.0 - 13.0 % Eosinophils % 0.0 0.0 - 6.0 % Basophil % 0.1 0.0 - 2.0 % Neutrophils Absolute 13.14 (H) 1.60 - 7.00 10??3/uL Lymphocyte Absolute 0.97 (L) 1.10 - 3.90 10??3/uL Monocytes Absolute 0.92 0.26 - 1.07 10??3/uL Eosinophils Absolute 0.00 0.00 - 0.47 10??3/uL Basophils Absolute 0.01 0.00 - 0.08 10??3/uL Immature Granulocytes % 0.7 0.0 - 1.0 % Immature Granulocytes Absolute 0.10 GLUCOSE - POINT OF CARE Result Value Ref Range Glucose WB/POC 261 (H) 70 - 115 mg/dL Specimen Type Venous GLUCOSE - POINT OF CARE Result Value Ref Range Glucose WB/POC 266 (H) 70 - 115 mg/dL Specimen Type Arterial GLUCOSE - POINT OF CARE Result Value Ref Range Glucose WB/POC 234 (H) 70 - 115 mg/dL Specimen Type Arterial GLUCOSE - POINT OF CARE Result Value Ref Range Glucose WB/POC 285 (H) 70 - 115 mg/dL Specimen Type Cap Fingerstick GLUCOSE - POINT OF CARE Result Value Ref Range Glucose WB/POC 218 (H) 70 - 115 mg/dL Specimen Type Cap Fingerstick CT NECK SOFT TISSUE W CONT Final Result PROCEDURE: CT NECK SOFT TISSUE W CONT, DATE/TIME OF EXAM: 10/13/2022 1:29 AM, LOCATION [facility] INDICATION: R06.00: Dyspnea, unspecified type ADDITIONAL CLINICAL [...] kenneth bullosa.. Paraseptal emphysema and lung scarring. IMPRESSION: 1.Findings concerning for right peritonsillar abscess with associated diffuse pharyngitis and extensive laryngeal edema, extending to the level of the supraglottic larynx, resulting in airway compromise status post endotracheal intubation. Preliminary findings were discussed with the patient's care provider, Dr. Brannon by Dr. Cleveland via telephone at 0248 on 10/13/2022 with readback comprehension and verification. > Dictated by Dean Cleveland M.D. (residential tech) Sundar Orourke MD have personally reviewed and interpreted this examination/study. > Interpreting Provider: Sundar Devine MD on 10/13/2022 10:[address] HEAD WO CONTRAST Final Result PROCEDURE: CT HEAD WO CONTRAST, DATE/TIME OF EXAM: 10/13/2022 1:26 AM, LOCATION [facility] INDICATION: I63.9: Ischemic stroke (CMS/HCC) EXAMINATION: Computed tomography (CT) of the head without contrast ADDITIONAL CLINICAL INFORMATION: Ordering Provider Reason For Exam: Acute respiratory distress. R/o central causes Technologist Note: None. Additional: None. TECHNIQUE: CT of the head was performed without contrast according to standard protocol. CT dose reduction technique was used, including Automated Exposure Control. COMPARISON: CT of the head from 10/12/2022. FINDINGS: No acute intra- or extra-axial fluid collections are identified. There is mild cerebral volume loss with associated ex vacuo ventricular dilatation. The basilar cisterns are patent. No significant mass effect or midline shift is seen. There has been interval mild diffuse but subtle hypoattenuation and loss of orozco-white matter differentiation involving larger portions of the right frontal and right temporal lobes as well as the right insula, and possibly posterior lateral temporal lobes which could represent acute evolving acute right MCA territory infarcts. MRI of the brain is recommended for further evaluation. Additional subtle hypoattenuation along the parasagittal right frontal lobe is also noted. Redemonstration of chronic infarcts with areas of encephalomalacia and gliosis in the right frontal and right parietal as well as the right occipital lobes compatible with chronic right MCA, SHEA, and BOARD MEMBER territory infarcts. Additional tiny lacunar infarcts in the bilateral cerebellar hemispheres are again noted. Periventricular white matter hypoattenuation is indicative of chronic small vessel ischemic disease. There is vascular calcification of the carotid siphons. No acute calvarial fracture is identified. Other than bilateral cataract extractions, the orbits appear normal. There is mild paranasal sinus disease. Opacification of the nasal passages and the nasopharynx. The patient is intubated. The mastoid air cells are grossly clear. Calcific densities along the left frontal scalp are again noted. No soft tissue abnormality is otherwise identified. IMPRESSION: 1.Suggestion of interval diffuse edema in the right MCA territory concerning for evolving right MCA territory ischemia. MRI of the brain is recommended for further evaluation.. 2.Additional chronic findings as outlined above. Results of this exam were communicated with closed loop confirmation to Dr. Mendenhall by Dr. Devine on 10/13/2022 at 9:54 AM with read back compression and verification. Report dictated by Romain Mckee MD, PhD (residential tech). I, Sundar Devine MD have personally reviewed and interpreted this examination/study. > Interpreting Provider: Sundar Devine MD on 10/13/2022 10:21 AM XR CHEST 1VW PORTABLE Final Result EXAMINATION: XR CHEST 1VW PORTABLE HISTORY: R53.1: Weakness COMPARISON: Chest radiograph dated 12/11/2021 FINDINGS/IMPRESSION: Lines: *A loop recorder superimposes the left chest. No confluent consolidation is noted. No pleural effusion is seen. No pneumothorax is identified. The heart is enlarged for this AP view. Aortic atherosclerosis is noted. The superior mediastinal contours are within normal limits. No acute osseous abnormality is identified. No free air is seen under the diaphragm. > Interpreting Provider: CEDRIC FLORES MD on 10/13/2022 6:[address] ANGIO BRAIN NECK STROKE Final Result EXAM: CT ANGIO BRAIN NECK STROKE, DATE/TIME OF EXAM: 10/12/2022 7:42 PM, LOCATION: [facility] HISTORY: Code Stroke EXAMINATION: CT angiogram images [...] right middle cerebral artery (MCA) via the [place] of [place]/patent anterior communicating artery. Diminished opacification [...] the right SHEA and MCA via the [place] of [place]. Diminished opacification of the right [...] communication. Report dictated by Gilbert Morrow MD (residential tech). I, Zelda Willams MD, PhD have personally reviewed and interpreted this examination/study. > Interpreting Provider: Zelda Willams MD, PhD on 10/12/2022 8:[address] BRAIN - Stroke Final Result EXAM: CT BRAIN STROKE, DATE/TIME OF EXAM: 10/12/2022 7:32 PM, LOCATION: [facility] HISTORY: Code Stroke EXAMINATION: CT scan of [...] infarct involving the right posterior cerebral artery (BOARD MEMBER) vascular territory. Multiple small chronic lacunes of [...] Willams MD, PhD on 10/12/2022 8:[address] HEAD NON CONTRAST (Results Pending) MRI BRAIN WO CONTRAST (Results Pending) XR CHEST 1VW PORTABLE (Results Pending) XR CHEST 1VW PORTABLE (Results Pending) XR ABDOMEN KUB PORTABLE (Results Pending) Progress Notes ED Course Clinical Impressions as of 10/16/22 0205 Ischemic stroke (CMS/HCC) Weakness Left-sided weakness Dyspnea, unspecified type Respiratory acidosis Dysphagia, unspecified type 0710 Patient arrived, code stroke activated, patient evaluated by team. 0715 Patient's mother and sister contacted for collateral information. 0730 tPA ordered. 0745 Patient admitted to neurocritical care. 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 Problem: - AMS - Left sided flaccid paralysis Differential diagnosis: - Ischemic vs hemorrhagic stroke - Stenosis of vessels - Complex migraine - Hypolglycemia - Other Plan: - Stroke work up to include labs, imaging - Hospital admission CT head completed at outside hospital was negative for hemorrhagic stroke. Given NIHSS, CT head demonstrating multiple areas of hypodensity in right hemisphere, as well as symptoms tPA was administered. Patient was admitted to the ICU post-tPA/NCC. NIH Total: 18 Assessment Interval: Shift Level of Consciousness: 1 LOC: Questions (Month and Age): 2 LOC: Commands (opens/closes, eyes/fists): 1 Best Gaze: 0 Visual: 1 Facial Palsy: 0 (BRITT) Motor Arm Function - Right: 2 Motor Arm Function - Left: 3 Motor Leg - Right: 2 Motor Leg - Left: 3 Limb Ataxia: 0 Sensory: 0 Best Language: 3 Dysarthria: 00 Extinction and Inattention: 0 Orders Placed This Encounter ??? CT BRAIN - Stroke ??? CT ANGIO BRAIN NECK STROKE ??? CT HEAD NON CONTRAST ??? XR CHEST 1VW PORTABLE ??? MRI BRAIN WO CONTRAST ??? XR CHEST 1VW PORTABLE ??? CT HEAD WO CONTRAST ??? CT NECK SOFT TISSUE W CONT ??? XR CHEST 1VW PORTABLE ??? XR ABDOMEN KUB PORTABLE ??? COMPREHENSIVE METABOLIC PANEL ??? PT-INR [facility] ??? TROPONIN-I HIGH SENSITIVE BASELINE + 1HR ??? HEMOGLOBIN A1C ??? LIPID PROFILE ??? MAGNESIUM BLOOD ??? PHOSPHORUS BLOOD ??? CBC W AUTO DIFFERENTIAL ??? BASIC METABOLIC PANEL (CALCIUM TOTAL) ??? TROPONIN-I HIGH SENSITIVE REFLEX 1HOUR ??? URINE DRUG SCREEN IMMUNOASSAY ??? URINALYSIS REFLEX TO MICROSCOPIC NO CULTURE ??? BLOOD GASES ART + COOX PANEL ??? TRIGLYCERIDES BLOOD ??? BLOOD GASES ART + COOX PANEL ??? BLOOD GASES ART + COOX PANEL ??? CBC W AUTO DIFFERENTIAL ??? CONSULT TO FLOAT TENDER ??? IP CONSULT TO FLOAT TENDER ??? IP CONSULT TO VASCULAR NEUROLOGY ??? IP CONSULT TO CUSTOMS VERIFIER ??? IP CONSULT TO CASE MANAGEMENT ??? IP CONSULT TO NUTRITIONAL SERV ??? IP CONSULT TO FLOAT TENDER ??? CONSULT TO REHAB ??? IP CONSULT TO NUTRITIONAL SERV ??? PULSE OXIMETRY, CONTINUOUS ??? PULSE OXIMETRY, CONTINUOUS ??? INITIATE SBT (VENTILATOR LIBERATION TRIAL) PROTOCOL ??? MECHANICAL VENTILATION ??? EKG 12-LEAD ??? EKG 12-LEAD ??? AND Linked Order Group ??? 0.9% NaCl injection 3 mL ??? 0.9% NaCl injection 1-10 mL ??? iopamidol (Isovue 370) 76 % contrast ??? DISCONTD: 0.9% NaCl infusion ??? AND Linked Order Group ??? 0.9% NaCl injection 3 mL ??? 0.9% NaCl injection 3 mL ??? *Hold/Avoid Medication ??? *Hold/Avoid Medication ??? DISCONTD: 0.9% NaCl injection 10 mL ??? tenecteplase (TNKase) injection 25 mg ??? 0.9% NaCl injection 10 mL ??? labetalol (Normodyne; Trandate) injection 10 mg ??? DISCONTD: *Hold/Avoid Medication ??? DISCONTD: *Hold/Avoid Medication ??? labetalol (Normodyne; Trandate) injection 10 mg ??? DISCONTD: niCARdipine (Cardene) 20 mg in 0.9% NaCl 200 mL infusion ??? morphine injection 4 mg ??? nicotine (Nicoderm CQ) patch 21 mg ??? DISCONTD: tiotropium (Spiriva Respimat) 2.5 MCG/ACT inhaler 2 puff ??? DISCONTD: albuterol (Proventil;Ventolin) (5 MG/ML) 0.5% nebulizer solution 2.5 mg ??? salmeterol (Serevent) 50 MCG/ACT diskus inhaler 1 puff ??? DISCONTD: ampicillin-sulbactam (Unasyn) 3 g in 0.9% NaCl IV 100 mL IVPB ??? ampicillin-sulbactam (Unasyn) 3 g in 0.9% NaCl IV 100 mL IVPB ??? albuterol (Proventil;Ventolin) (2.5 MG/3ML) 0.083% nebulizer solution 2.5 mg ??? glucose (Diabetic Use) (Dex4 Glucose) oral liquid ??? glucose (Diabetic Use) oral gel ??? glucose chew tablet 4 tablet ??? OR Linked Order Group ??? dextrose 10 % IV bolus ??? dextrose 10 % IV bolus ??? glucagon (Glucagen) injection 1 mg ??? DISCONTD: insulin lispro (HumaLOG;ADMelog) 100 UNIT/ML pen 0-6 Units ??? magnesium sulfate 2 g in 50 mL bolus ??? DISCONTD: ketorolac (Toradol) injection 15 mg ??? DISCONTD: insulin lispro (HumaLOG;ADMelog) 100 UNIT/ML pen 0-6 Units ??? acetaminophen (Tylenol) suppository 650 mg ??? propofol (Diprivan) infusion ??? DISCONTD: fentaNYL 2500 mcg/50mL infusion ??? DISCONTD: fentaNYL (Sublimaze) bolus from infusion bag 50 mcg ??? propofol (Diprivan) 1000 mg in 100 mL infusion ADS Med ??? phenylephrine 100 mcg/mL injection ADS Med ??? atropine 1 mg/ml injection ADS Med ??? atropine 0.4 mg/ml injection ADS Med ??? artificial tears ophthalmic ointment ??? chlorhexidine (Peridex) 0.12 % oral solution 15 mL ??? pantoprazole (Protonix) injection 40 mg ??? DISCONTD: iopamidol (Isovue 370) 76 % contrast ??? iopamidol (Isovue 370) 76 % contrast ??? magnesium sulfate 2 g in 50 mL bolus ??? DISCONTD: insulin lispro (HumaLOG;ADMelog) 100 UNIT/ML pen 0-12 Units ??? DISCONTD: insulin lispro (HumaLOG;ADMelog) 100 UNIT/ML pen 0-12 Units ??? dexAMETHasone (Decadron) injection 10 mg ??? insulin lispro (HumaLOG;ADMelog) 100 UNIT/ML pen 0-24 Units ??? polyethylene glycol 3350 (Miralax) packet 17 g ??? senna-docusate (Senokot-S) tablet 1 tablet ??? albuterol-ipratropium (Duo-Neb) nebulizer solution 3 mL ??? budesonide (Pulmicort) nebulizer suspension 500 mcg ??? fentaNYL (PF) (Sublimaze) injection 50 mcg * Mike Kruger RN - 10/12/2022 7:49 PM CDT Bed: [facility] Expected date: Expected time: Means of arrival: Comments: [place] 1T documented in this encounter Miscellaneous Notes * Clinical References JORDON - Naima Doyle RN - 10/13/2022 1:18 PM CDT Images from the original note were not included. 39875 Thrombolytic Therapy for Stroke An ischemic stroke occurs when blood flow to the brain is blocked. This is most often because of a blood clot in an artery in the brain or an artery leading to the brain. Treatment is needed right away to help dissolve the clot and restore normal blood flow. Restoring normal blood flow can limit damage to brain tissue and improve outcome. With thrombolytic therapy, a clot-busting medicine is used to dissolve the clot. The medicine may be given through an IV (intravenous) line. Or it may be directly sent to the site of the clot through a thin, flexible tube (catheter). Before the treatment ?? People with certain health problems have increased risks for problems with thrombolytic therapy.For this reason, a detailed health history must be taken to check whether it's safe to have the treatment. Tell your healthcare provider about any health problems you have. The provider will also askwhether you?ve had specific problems, such as a past stroke, head injury, or bleeding in the brain. ?? Tell the healthcare provider about all medicines you take. Mention if you take blood thinners (anticoagulants). Also mention if you take xbxn-igl-vchgdib medicines, herbal medicines, or other supplements. ?? Tell your provider about any allergies you may have, including allergy to contrast dye. ?? Tell your healthcare provider if you use alcohol or tobacco products so that they can give you the safest possible care. ?? Tell your healthcare provider if you are or if you are . ?? Tell your healthcare provider if you have had recent surgery or a head injury. ?? Certain tests need to be done before the treatment. These include blood tests and imaging tests,such as a CT or MRI scan of the brain. ?? Treatment with a thrombolytic must start within 4.5 hours after symptoms start. ?? To be eligible, you must have symptoms that continue plus a diagnosis of ischemic stroke. ?? Your blood sugar will be checked to rule out low blood sugar as cause of symptoms. ?? Two IV lines will be placed in your hand or arm. ?? Your blood pressure may be lowered before giving a thrombolytic. During the treatment Through an IV line Clot-busting medicine is sent through an IV line in your arm or hand. It will travel through your blood until it reaches the clot. You?ll be watched closely throughout the treatment. You will stay inan intensive care unit or a stroke unit for at least 24 hours for monitoring. Your blood pressure must remain below 180/105 mmHg for the first 24 hours after therapy. Through a catheter ?? You are given medicine to numb the site where the catheter will be inserted. This is often the groin area. ?? The radiologist makes a small hole (puncture) in the artery. Then the provider puts the catheterinto the hole. Using X-rays, the provider carefully guides the catheter through the artery. ?? Contrast dye is injected through the catheter into the artery. This helps the artery show up clearly on X-ray images. The radiologist uses these images as a guide. They move the catheter through the artery to the clot. ?? When the catheter reaches the clot, the radiologist adds medicine or uses a device to dissolve the clot. ?? When the procedure is complete, the radiologist removes the catheter. ?? The staff will put pressure on the insertion site for a time to stop any bleeding. Once the bleeding has stopped, they will put a very tight bandage on the site. After the treatment After the treatment, you?ll need to stay in the hospital for at least several days. More imaging tests will be done to check how well the clot is dissolving. Other tests may also be done to help findthe cause of the stroke. If you have the catheter-directed thrombolysis, you will be taken to a recovery area to lie flat for a few hours. Your healthcare provider will talk with you about the results soon after the procedure. Depending on your test results and your health condition, you will either be discharged home or stay in the hospital. Once you are home: ?? Don?t drive for 24 hours or as advised by your provider. ?? Don't walk, bend, lift, or take stairs for 24 hours or as advised by your provider. ?? Don't lift anything over 5 pounds (2.27 kg) for 7 days. Follow any other instructions from your healthcare provider. Risks and possible complications ?? Bleeding in the brain or elsewhere in the body ?? Allergic reaction to the clot-busting medicine. This includes skin rash, itching, or swelling ofyour face or tongue. ?? Sharp pain or pain at the catheter insertion site that gets worse ?? Chest pain or pressure ?? Severe headache ?? Shortness of breath ?? Worsening of heart problems ?? Dizziness or lightheadedness ?? Nausea and vomiting ?? Follow-up care Recovery from a stroke can take several months or longer. Keep all follow-up appointments with yourhealthcare provider. These are needed to monitor your health and how well you are recovering. You may need other treatments such as medicines, rehab (rehabilitation), and surgery in the future. Your healthcare provider will talk about these with you as needed. Call 911 Call 911 or go to an ER (emergency room) right away if you have any of these signs of a stroke: ?? Sudden, unexplained numbness or weakness on a side of the body ?? Problems seeing, double vision, or blurry vision ?? Sudden confusion or problems with speech ?? Sudden dizziness, trouble walking, or problems with balance ?? Sudden, severe headache B.E. F.A.S.T. for stroke B.E. F.A.S.T. is an easy way to remember the signs of a stroke. When you see these signs, you will know that you need to call 911 fast. B.E. F.A.S.T. stands for: ?? B is for balance. Sudden loss of balance or coordination. ?? E is for eyes. Vision changes in one or both eyes. ?? F is for face drooping. One side of the face droops or is numb. When the person smiles, the smile is uneven. ?? A is for arm weakness. One arm is weak or numb. When the person lifts both arms at the same time, one arm may drift downward. ?? S is for speech difficulty. You may notice slurred speech or trouble speaking. The person can't repeat a simple sentence correctly when asked. ?? T is for time to call 911. If someone shows any of these symptoms, even if they go away, call 911 right away. Make note of the time the symptoms first appeared. If you are at risk for having a stroke: ?? Keep a list of important phone numbers next to your phone or in your cell phone list of contacts. Include your healthcare provider and relatives or friends you want to be contacted. ?? Carry a list of all medicines you take and the dosages of each, in your wallet. Include wimq-bwt-qbxefpn medicines, vitamins, and supplements. ?? Write a brief health history, including any other medical problems you have had and the dates. Keep this with the medicine list. You have received a clot-busting medicine (thrombolytic) during your hospital stay. Therefore, you are not eligible to receive thrombolytic therapy during the next three months. Other treatment options may be available to you. Please call 911 to get to the emergency room if you are having stroke-like symptoms. Last Reviewed Date: 2021 ?? [id number] [employer]. All rights reserved. This information is not intended as a substitute for professional medical care. Always follow your healthcare professional's instructions. This information has been modified by your health care provider with permission from the publisher. * Clinical References AVS - Naima Doyle RN - 10/13/2022 1:09 PM CDT 12594 Discharge Instructions for Stroke You have a high risk for a stroke, or a TIA (transient ischemic attack). During a stroke, blood stops flowing to part of your brain. This can damage areas in the brain that control other parts of thebody. Symptoms from a stroke depend on which part of the brain has been affected. Stroke risk factors Once you?ve had a stroke, you?re at greater risk for another one. Listed below are some other factors that can raise your risk for a stroke. You ?? High blood pressure. Measure your blood pressure twice a day?morning and late afternoon?at aboutthe same times every day. For best results, sit comfortably with both feet on the floor for at least two minutes before taking a measurement. When you measure your blood pressure, rest your arm on a table so the blood pressure cuff is at about the same height as your heart. Record your blood pressure and show it to your doctor at every visit. ?? High cholesterol. Your LDL 85 mg/dL. Goal is less than 70 mg/dL. You have been prescribed atorvastatin (Lipitor) to help control your high cholesterol. It is important to maintain a healthy diet and exercise routine, in addition to your medication, to lower your cholesterol. Your primary care doctor will continue to monitor this value. ?? Cigarette or cigar smoking. Continued smoking after stroke is associated with a high risk of stroke recurrence and other cardiovascular disease. It?s thought that smokers are around three times more likely to have a stroke than non- smokers. After a stroke or a transient ischemic attack (TIA or mini-stroke), one of the first pieces of advice given to smokers is to quit smoking. It could be one of the most important lifestyle changes you make to help you stay healthy and reduce your risk of another stroke. ?? Diabetes. At your follow up appointment with your primary care physician, be sure to discuss your diabetes management and potential modifications to your disease management plan, as you have suffered a major cardiovascular event. Medications called SGLT-2 inhibitors or GLP-1 receptor agonists have been shown to reduce major adverse cardiovascular events in patients with diabetes. These medications require close follow up with PCP or yarn spinner and some lab monitoring. Due to this reason, we have deferred treatment until outpatient follow up. It is important to assess your risk for future events and prevention strategies with your outpatient care team. For more information about diabetes, visit the [place] [employer] website at www.diabetes.org. Or you can call 572-480-8170.? ?? Carotid or other artery disease ?? Atrial fibrillation, atrial flutter, or other heart disease ?? Not being physically active ?? Obesity ?? Certain blood disorders, such as sickle cell anemia ?? Drinking too much alcohol ?? Abusing street drugs ?? Race ?? Gender ?? Family history of stroke ?? Diet high in salty, fried, or greasy foods Changes in daily living Doing some everyday tasks may be hard after you?ve had a stroke. But you can learn new ways to manage. In fact, doing daily activities may help you to regain muscle strength. This can help your affected arm or leg work more normally. Be patient. Give yourself time to adjust. And appreciate the progress you make. Daily activities You may be at risk of falling. Make changes to your home to help you walk more easily. A therapist will decide if you need an assistive device, such as a cane or walker, to walk safely. You may need to see an occupational therapist (OT). Or you may see a physical therapist (PT). Thesehealthcare providers can help you to learn new ways of doing things. For example, you may need to make changes in how you bathe or dress. You may also need a speech therapist. This is someone who helps you speak normally again and be able to swallow. Tips for showering or bathing ?? Test the water temperature with a hand or foot that was not affected by the stroke. ?? Use grab bars, a shower seat, a handheld showerhead, and a long-handled brush. ?? Use any other device as advised by your therapists. Tips for getting dressed ?? Dress while sitting, starting with the affected side or limb. ?? Wear shirts that pull easily over your head. Wear pants or skirts with elastic waistbands. ?? Use zippers with loops attached to the pull tabs. Lifestyle changes ?? Take your medicines exactly as directed. Don?t skip doses. ?? Begin an exercise program. Ask your provider how to get started. Ask how much activity you should try to get every day or week. You can benefit from simple activities such as walking or gardening. ?? Limit how much alcohol you drink. ?? Control your cholesterol level. Follow your provider?s advice about how to do this. ?? If you are a smoker, quit now. Join a stop-smoking program to improve your chances of success. Ask your provider about medicines or other methods to help you quit. ?? Learn stress management methods. These can help you deal with stress in your home and work life. Diet Your healthcare provider will guide you on changes you may need to make to your diet. They may advise that you see a registered dietitian for help with changes. The changes can improve your cholesterol, blood pressure, and blood sugar. Changes may include: ?? Reducing the amount of fat and cholesterol you eat ?? Reducing the amount of salt (sodium) in your diet, especially if you have high blood pressure ?? Eating more vegetables and fruits ?? Eating more lean proteins, such as fish, poultry, and beans and peas (legumes) ?? Eating less red meat and processed meats ?? Using low-fat dairy products ?? Limiting vegetable oils and nut oils ?? Limiting sweets and processed foods such as chips, cookies, and baked goods ?? Not eating trans fats. These are often found in processed foods. Don't eat any food that has hydrogenated oils listed in its ingredients. Follow-up care ?? Keep your medical appointments. Close follow-up is important to stroke rehabilitation and recovery. ?? Some medicines require blood tests to check for progress or problems. Keep follow-up appointments for any blood tests ordered by your providers. Call 911 Call 911 right away if you have any of the following symptoms of stroke: ?? Weakness, tingling, or loss of feeling on one side of your face or body ?? Sudden double vision or trouble seeing in one or both eyes ?? Sudden trouble talking or slurred speech ?? Trouble understanding others ?? Sudden, severe headache ?? Dizziness, loss of balance, or a sense of falling ?? Blackouts or seizures B.E. F.A.S.T. is an easy way to remember the signs of stroke. When you see these signs, you know that you need to call 911 fast. B.E. F.A.S.T. stands for: ?? B is for balance. Sudden loss of balance or coordination. ?? E is for eyes. Vision changes in one or both eyes. ?? F is for face drooping. One side of the face is drooping or numb. When the person smiles, the smile is uneven. ?? A is for arm weakness. One arm is weak or numb. When the person lifts both arms at the same time, one arm may drift downward. ?? S is for speech difficulty. You may notice slurred speech or trouble speaking. The person can't repeat a simple sentence correctly when asked. ?? T is for time to call 911. If someone shows any of these symptoms, even if they go away, call 911 right away. Make note of the time the symptoms first appeared. Last Reviewed Date: 2021 ?? [id number] [employer]. All rights reserved. This information is not intended as a substitute for professional medical care. Always follow your healthcare professional's instructions.This information has been modified by your health care provider with permission from the publisher. * Clinical References AVS - Naima Doyle RN - 10/13/2022 1:01 PM CDT Images from the original note were not included. [id number] What Is Ischemic Stroke? The brain needs a constant supply of blood to work. During a stroke, blood stops flowing to part ofthe brain. The affected area is damaged. Its functions are harmed or even lost. Most strokes are caused by a blockage in a blood vessel that supplies the brain. This is an ischemic stroke. They can also occur if a blood vessel in the brain ruptures (hemorrhagic stroke). The carotids are large arteries that carry blood from the heart to the brain. From the heart to the brain The heart is a pump. It sends oxygen-rich blood out through blood vessels called arteries. If an artery between the heart and the brain is blocked, the brain can?t get enough oxygen. Some artery blockages are caused by fatty deposits (plaque). Arteries can also be blocked by blood clots. Some clotsform on the plaque. Others can form in the heart?especially in people with atrial fibrillation, an irregular heart rhythm. If a piece of plaque or clot breaks off and enters the bloodstream, it can block flow to the brain and cause a stroke. How a stroke occurs Ischemic stroke occurs when an artery that supplies the brain is greatly narrowed or blocked. This can be caused by a buildup of plaque. It can also occur when small pieces of plaque or blood clot (emboli) break off from the blood vessel or heart into the bloodstream. The emboli flow in the blood until they get stuck in a small blood vessel in the brain. Healthy arteries. In a healthy artery, the lining of the artery wall is smooth. This lets blood flow freely from the heart to the rest of the body. The brain gets all the blood it needs to function well. Damaged arteries. High blood pressure, cigarette smoking, high cholesterol, or other problems can roughen artery newton. This allows plaque to build up in the newton. Blood clots may also form on the plaque. This can narrow the artery and limit blood flow. Healthy arteries Damaged arteries Know the symptoms of a stroke ?? Weakness. You may feel a sudden weakness, tingling, or a loss of feeling on one side of your face or body including your arm or leg. ?? Vision problems. You may have sudden double vision or trouble seeing in one or both eyes. ?? Speech problems. You may have sudden trouble talking, slurred speech, or problems understanding others. ?? Movement problems. You may have sudden trouble walking, dizziness, a feeling of spinning, a lossof balance, a feeling of falling, or blackouts. Remember: If you have any of these symptoms, call 911 and your doctor as soon as possible. B.E. F.A.S.T. is an easy way to remember the signs of a stroke. When you see the signs, you will know what you need to call 911 fast. B.E. F.A.S.T. stands for: ?? B is for balance. Sudden loss of balance or coordination. ?? E is for eyes. Vision changes in one or both eyes. ?? F is for face drooping. One side of the face is drooping or numb. When the person smiles, the smile is uneven. ?? A is for arm weakness. One arm is weak or numb. When the person lifts both arms and the same time, one arm may drift downward. ?? S is for speech difficulty. You may notice slurred speech or trouble speaking. The person can't repeat a simple sentence correctly when asked. ?? T is for time to call 911. If someone shows any of these symptoms, even if they go away, call 911 right away. Make note of the time the symptoms first appeared. Last Reviewed Date: 2021 ?? [id number] [employer]. All rights reserved. This information is not intended as a substitute for professional medical care. Always follow your healthcare professional's instructions. * Clinical References AVS - Naima Doyle RN - 10/13/2022 1:01 PM CDT Images from the original note were not included. 37171 Understanding the Link Between High Blood Pressure and Stroke Each day that your blood pressure is too high, your chances of having a stroke are increased. Normal blood pressure is less than 120/80 millimeters of mercury (mmHg). This means systolic of less [id number] mmHg and diastolic of less than 80 mmHg. A stroke is a loss of brain function caused by a sudden lack of blood to part of the brain. Stroke can be caused by the damage that ongoing high blood pressure causes in your vessels. If the affected vessel stops supplying blood to the brain, a stroke happens. How high blood pressure damages blood vessels Vessels thicken When blood presses against a vessel wall with too much force, muscles in the wall lose their ability to stretch. This causes the wall to thicken, which narrows the vessel passage and reduces blood flow. Clots form When blood pressure is too high, it can damage blood vessel newton and create scar tissue. Fat and cholesterol (plaque) collect in the damaged spots. Blood cells stick to the plaque, forming a mass called a clot. A clot can block blood flow in the vessel. Vessels break Sometimes, blood flows with enough force to weaken a vessel wall. If the vessel is small or damaged, the wall can break. When this happens, blood leaks into nearby tissue and kills cells. Other cellsmay because blood cannot reach them. Know the symptoms of stroke During a stroke, blood supply to the brain is suddenly cut off. But with fast medical help, a better recovery is more likely. Don?t wait. Call 911 if you have any of these: ?? Sudden weakness or numbness on one side of the face or body, including a leg or an arm ?? Sudden trouble seeing with one or both eyes ?? Sudden double vision ?? Sudden trouble talking, such as slurred speech ?? Sudden severe headache ?? Sudden problems using or understanding words ?? Sudden confusion ?? Sudden dizziness or loss of balance ?? Seizures for the first time ?? Any of these symptoms that happen and then go away Last Reviewed Date: 2022 ?? [id number] [employer]. All rights reserved. This information is not intended as a substitute for professional medical care. Always follow your healthcare professional's instructions. * Clinical References AVS - Naima Doyle RN - 10/13/2022 1:00 PM CDT Images from the original note were not included. Overweight and Obesity - Video Staying fit is a challenge for many people. Carrying too much body fat is bad for your health. Being overweight means you weigh more than what we consider normal for your body type. If you keep gaining weight, you may become obese. Let's take a few minutes to learn about weight and your health. To view the video go to this web address: [email or web address] Or, scan this QR code with your smart phone ?? 2020 [employer] * Clinical References Naima Kraft RN - 10/13/2022 1:00 PM CDT Images from the original note were not included. Lowering Cholesterol with Diet and Exercise - Video High cholesterol can sometimes be treated with a change in diet or increased exercise. Find out what can make a difference. To view the video go to this web address: [email or web address] Or, scan this QR code with your smart phone ?? [employer] * Clinical References Naima Kraft RN - 10/13/2022 1:00 PM CDT Images from the original note were not included. [id number] How to Quit Smoking Smoking is a hard habit to break. About half of all people who've ever smoked have been able to quit. Most people who still smoke want to quit. Here are some of the best ways to stop smoking. Keep in mind how quitting can help your health The health benefits of quitting start right away. They keep improving the longer you go without smoking. Knowing this can help inspire you to stay on track. These benefits occur at any age. Quitting is a good choice whether you are 17 or 70. Some of the health benefits after your last cigarette include: ?? After 20 minutes: Your blood pressure and pulse return to normal. ?? After 8 hours: Your oxygen levels return to normal. ?? After 2 days: Your ability to smell and taste start to get better as damaged nerves regrow. ?? After 2 to 3 weeks: Your circulation and lung function get better. ?? After 1 to 9 months: You have less coughing, congestion, and shortness of breath. You feel less tired. ?? After 1 year: Your risk of heart attack goes down by 50%. ?? After 5 years: Your risk of lung cancer goes down by 50%. Your risk of stroke becomes the same as a nonsmoker?s. What about going cold turkey? You may have heard about quitting cold turkey. This means stopping all at once. Going cold turkeyis an option. But it's not the most successful way to quit smoking. Trying to cut back slowly oftendoesn't work as well either. This may be because it continues the habit of smoking. You may also inhale more smoke while smoking fewer cigarettes. This leads to the same amount of nicotine in your body. But quitting cold turkey or cutting back slowly aren't your only choices. Using tobacco cessation medicines with behavioral counseling may be a better choice to help you succeed. Talk with your provider about your choices for support while you quit smoking. Get support Support programs can be a big help, especially for heavy smokers. These groups offer information, ways to change behavior, and peer support. Ask your provider for some resources. Here are some other ways to find support: ?? Smokefree.gov at www.smokefree.gov or 709-NQWK-HXA (460-878-2450) ?? [place] [employer] at www.lung.org/quit-smoking or 231-292-8245 ?? [place] [employer] at www.cancer.org/quitsmoking or 381-596-4264 Support at home is important too. Family and friends can offer praise and reassurance. Ask your friends who smoke to support your decision. Try to stay away from situations that trigger the desire tosmoke. This may include smoking with your morning coffee. Or smoking after a meal. Create new routines to help decrease your cravings. If the smoker in your life finds it hard to quit, encourage them to keep trying. Remind them of allof the benefits to themselves and people they love. Try [id number] nicotine replacements Nicotine replacement therapy may make it easier to quit. You can buy some aids without a prescription. These include a nicotine patch, gum, and lozenges. But it's best to use these under the care of your healthcare provider. The skin patch gives a steady supply of nicotine. Nicotine gum and lozenges give short- time doses of low levels of nicotine. Both methods reduce the craving for cigarettes. If you have upset stomach (nausea), vomiting, dizziness, weakness, or a fast heartbeat, stop using these products and see your provider. Ask about prescription medicine After reviewing your smoking patterns and past attempts to quit, your provider may offer a prescription medicine. These include bupropion, varenicline, a nicotine inhaler, or nasal spray. Each has advantages and side effects. Your provider can go over these with you. Keep trying Most smokers try to quit many times before they succeed. It?s important not to give up. Last Reviewed Date: 2022 ?? [id number] [employer]. All rights reserved. This information is not intended as a substitute for professional medical care. Always follow your healthcare professional's instructions. * Clinical References Naima Kraft RN - 10/13/2022 1:00 PM CDT Images from the original note were not included. High Cholesterol: Understanding Statins - Video Learn how statin medications work to lower the amount of cholesterol in your blood; lowering your risk of heart attack, stroke and other blood vessel diseases. To view the video go to this web address: [email or web address] Or, scan this QR code with your smart phone ?? [facility] * Clinical References Naima Kraft RN - 10/13/2022 12:59 PM CDT Changes that Lead to Better Diabetes Control - Video Learn how making gradual changes in your everyday behaviors can improve your blood glucose levels. To view the video go to this web address: [email or web address] Or, scan this QR code with your smart phone ?? [facility] * Clinical References Naima Kraft RN - 10/13/2022 12:59 PM CDT Images from the original note were not included. [id number] Carotid Artery Problems: Stroke The carotid arteries are large blood vessels that carry blood to the brain. When these arteries arehealthy, the brain gets all the oxygen and nutrients it needs to function well. But if the carotid arteries are damaged, this can greatly increase your risk of a stroke. A stroke is a sudden loss of brain function caused by a lack of blood flow and oxygen. Small pieces of a blood clot called emboli break off and can enter the bloodstream and travel to the brain. Brain tissue is damaged when emboli block arteries in the brain. How artery damage can lead to a stroke A healthy carotid artery is smooth on the inside, like a tube. But health problems such as high blood pressure, diabetes, and smoking can damage the inside of the artery wall and make it rough. This lets fatty deposits called plaque build up on the artery wall. Blood clots called emboli may also form on the plaque. If pieces of plaque or emboli break off, they can flow in the blood and get stuck in a small blood vessel in the brain. This blocks the blood flow to a part of the brain, and causes a stroke. Symptoms of a stroke Below are common symptoms of a stroke. Call 911 right away if you have any of these symptoms. Fast medical treatment for a stroke is vital. The longer you wait to get help, the more damage a stroke can do. ?? Sudden numbness or weakness of the face, arm, or leg, especially on one side of the body ?? Sudden confusion or trouble speaking or understanding other people ?? Sudden trouble seeing in 1 or both eyes ?? Sudden trouble walking, dizziness, or loss of balance or coordination ?? Sudden, severe headache with no known cause ?? Sudden new seizures Transient ischemic attack (TIA) A transient ischemic attack (TIA) is a mini-stroke. It?s a warning sign that a larger stroke may happen in the near future. A TIA is when an artery to the brain is blocked for a brief time. This willcause symptoms just like those that happen with a stroke. But with a TIA, they last a short period of time, from a few seconds to a few hours. Never ignore any TIA or stroke symptoms. Call 911 right away. B.E. F.A.S.T. B.E. F.A.S.T. is an easy way to remember the signs of a stroke or TIA. When you see these signs, call 911 fast. B.E. F.A.S.T. stands for: ?? B is for balance. Sudden loss of balance or coordination. ?? E is for eyes. Vision changes in one or both eyes. ?? F is for face drooping. One side of the face is drooping or numb. When the person smiles, the smile is uneven. ?? A is for arm weakness. One arm is weak or numb. When the person lifts both arms at the same time, one arm may drift downward. ?? S is for speech difficulty. You may notice slurred speech or trouble speaking. The person can't repeat a simple sentence correctly when asked. ?? T is for time to call 911. If someone shows any of these symptoms, even if the symptoms go away,call 911 right away. Make note of the time the symptoms first appeared. Last Reviewed Date: 2021 ?? [id number] [employer]. All rights reserved. This information is not intended as a substitute for professional medical care. Always follow your healthcare professional's instructions. documented in this encounter Plan of Treatment Pending Results Name Type Priority Associated Diagnoses Date /Time EKG 12-LEAD ECG Routine Bradycardia 10/24/2022 7:50 AM CDT documented as of this encounter Procedures Procedure Name Priority Date/Time Associated Diagnosis Comments CARDIAC EKG ORDER 10/30/2022 2:2 3 PM CDT GLUCOSE - POINT OF CARE Routine 10/28/2022 6:03 PM CDT GLUCOSE - POINT OF CARE Routine 10/28/2022 12:12 PM CDT GLUCOSE - POINT OF CARE Routine 10/28/2022 8:33 AM CDT GLUCOSE - POINT OF CARE Routine 10/27/2022 8:42 PM CDT GLUCOSE - POINT OF CARE Routine 10/27/2022 6:15 PM CDT GLUCOSE - POINT OF CARE Routine 10/27/2022 11:57 AM CDT GLUCOSE - POINT OF CARE Routine 10/27/2022 7:51 AM CDT COMPREHENSIVE METABOLIC PANEL AM Draw 10/27/2022 5:56 AM CDT PHOSPHORUS BLOOD Routine 10/27/2022 5:56 AM CDT MAGNESIUM BLOOD Routine 10/27/2022 5:56 AM CDT GLUCOSE - POINT OF CARE Routine 10/26/2022 9:29 PM CDT GLUCOSE - POINT OF CARE Routine 10/26/2022 5:55 PM CDT GLUCOSE - POINT OF CARE Routine 10/26/2022 12:56 PM CDT GLUCOSE - POINT OF CARE Routine 10/26/2022 7:48 AM CDT CBC W AUTO DIFFERENTIAL STAT 10/26/2022 4:14 AM CDT BASIC METABOLIC PANEL (CALCIUM TOTAL) Routine 10/26/2022 4:14 AM CDT PHOSPHORUS BLOOD Routine 10/26/2022 4:14 AM CDT MAGNESIUM BLOOD Routine 10/26/2022 4:14 AM CDT GLUCOSE - POINT OF CARE Routine 10/25/2022 9:09 PM CDT GLUCOSE - POINT OF CARE Routine 10/25/2022 5:05 PM CDT GLUCOSE - POINT OF CARE Routine 10/25/2022 11:32 AM CDT GLUCOSE - POINT OF CARE Routine 10/25/2022 7:48 AM CDT GLUCOSE - POINT OF CARE Routine 10/24/2022 8:56 PM CDT GLUCOSE - POINT OF CARE Routine 10/24/2022 5:53 PM CDT GLUCOSE - POINT OF CARE Routine 10/24/2022 12:40 PM CDT EKG 12-LEAD Routine 10/24/2022 7:50 AM CDT Bradycardia GLUCOSE - POINT OF CARE Routine 10/24/2022 7:39 AM CDT GLUCOSE - POINT OF CARE Routine 10/23/2022 9:28 PM CDT GLUCOSE - POINT OF CARE Routine 10/23/2022 4:57 PM CDT GLUCOSE - POINT OF CARE Routine 10/23/2022 11:33 AM CDT GLUCOSE - POINT OF CARE Routine 10/23/2022 8:13 AM CDT CBC W AUTO DIFFERENTIAL STAT 10/23/2022 5:43 AM CDT BASIC METABOLIC PANEL (CALCIUM TOTAL) Routine 10/23/2022 5:43 AM CDT PHOSPHORUS BLOOD Routine 10/23/2022 5:43 AM CDT MAGNESIUM BLOOD Routine 10/23/2022 5:43 AM CDT GLUCOSE - POINT OF CARE Routine 10/22/2022 8:52 PM CDT GLUCOSE - POINT OF CARE Routine 10/22/2022 5:27 PM CDT GLUCOSE - POINT OF CARE Routine 10/22/2022 12:09 PM CDT GLUCOSE - POINT OF CARE Routine 10/22/2022 7:33 AM CDT BASIC METABOLIC PANEL (CALCIUM TOTAL) AM Draw 10/22/2022 5:52 AM CDT GLUCOSE - POINT OF CARE Routine 10/21/2022 9:08 PM CDT GLUCOSE - POINT OF CARE Routine 10/21/2022 5:36 PM CDT GLUCOSE - POINT OF CARE Routine 10/21/2022 12:19 PM CDT GLUCOSE - POINT OF CARE Routine 10/21/2022 8:00 AM CDT CBC W AUTO DIFFERENTIAL STAT 10/21/2022 5:40 AM CDT BASIC METABOLIC PANEL (CALCIUM TOTAL) Routine 10/21/2022 5:40 AM CDT PHOSPHORUS BLOOD Routine 10/21/2022 5:40 AM CDT MAGNESIUM BLOOD Routine 10/21/2022 5:40 AM CDT GLUCOSE - POINT OF CARE Routine 10/21/2022 4:05 AM CDT GLUCOSE - POINT OF CARE Routine 10/21/2022 12:01 AM CDT GLUCOSE - POINT OF CARE Routine 10/20/2022 8:19 PM CDT GLUCOSE - POINT OF CARE Routine 10/20/2022 5:12 PM CDT GLUCOSE - POINT OF CARE Routine 10/20/2022 12:29 PM CDT GLUCOSE - POINT OF CARE Routine 10/20/2022 8:01 AM CDT GLUCOSE - POINT OF CARE Routine 10/20/2022 4:25 AM CDT GLUCOSE - POINT OF CARE Routine 10/19/2022 11:34 PM CDT CBC W AUTO DIFFERENTIAL STAT 10/19/2022 11:02 PM CDT BASIC METABOLIC PANEL (CALCIUM TOTAL) AM Draw 10/19/2022 11:02 PM CDT PHOSPHORUS BLOOD Routine 10/19/2022 11:0 2 PM CDT MAGNESIUM BLOOD Routine 10/19/2022 11:02 PM CDT GLUCOSE - POINT OF CARE Routine 10/19/2022 8:19 PM CDT GLUCOSE - POINT OF CARE Routine 10/19/2022 4:46 PM CDT GLUCOSE - POINT OF CARE Routine 10/19/2022 12:37 PM CDT FL SWALLOWING FUNCTION STUDY Routine 10/19/2022 10:15 AM CDT Dysphagia, unspecified type GLUCOSE - POINT OF CARE Routine 10/19/2022 7:41 AM CDT GLUCOSE - POINT OF CARE Routine 10/19/2022 3:57 AM CDT GLUCOSE - POINT OF CARE Routine 10/19/2022 1:33 AM CDT GLUCOSE - POINT OF CARE Routine 10/19/2022 12:12 AM CDT CBC W AUTO DIFFERENTIAL STAT 10/18/2022 11:01 PM CDT BASIC METABOLIC PANEL (CALCIUM TOTAL) AM Draw 10/18/2022 11:01 PM CDT PHOSPHORUS BLOOD Routine 10/18/2022 11:0 1 PM CDT MAGNESIUM BLOOD Routine 10/18/2022 11:01 PM CDT GLUCOSE - POINT OF CARE Routine 10/18/2022 9:53 PM CDT GLUCOSE - POINT OF CARE Routine 10/18/2022 7:52 PM CDT GLUCOSE - POINT OF CARE Routine 10/18/2022 7:42 PM CDT GLUCOSE - POINT OF CARE Routine 10/18/2022 1:01 PM CDT GLUCOSE - POINT OF CARE Routine 10/18/2022 9:08 AM CDT GLUCOSE - POINT OF CARE Routine 10/18/2022 3:35 AM CDT BASIC METABOLIC PANEL (CALCIUM TOTAL) AM Draw 10/18/2022 1:57 AM CDT PHOSPHORUS BLOOD Routine 10/18/2022 1:57 AM CDT MAGNESIUM BLOOD Routine 10/18/2022 1:57 AM CDT CBC W AUTO DIFFERENTIAL STAT 10/18/2022 1:55 AM CDT GLUCOSE - POINT OF CARE Routine 10/18/2022 12:00 AM CDT GLUCOSE - POINT OF CARE Routine 10/17/2022 9:42 PM CDT GLUCOSE - POINT OF CARE Routine 10/17/2022 7:57 PM CDT GLUCOSE - POINT OF CARE Routine 10/17/2022 6:24 PM CDT GLUCOSE - POINT OF CARE Routine 10/17/2022 12:07 PM CDT GLUCOSE - POINT OF CARE Routine 10/17/2022 8:29 AM CDT GLUCOSE - POINT OF CARE Routine 10/17/2022 4:[address] HEAD WO CONTRAST Routine 10/17/2022 3 :16 AM CDT Weakness CBC W AUTO DIFFERENTIAL STAT 10/17/2022 12:44 AM CDT BASIC METABOLIC PANEL (CALCIUM TOTAL) AM Draw 10/17/2022 12:44 AM CDT PHOSPHORUS BLOOD Routine 10/17/2022 12:4 4 AM CDT MAGNESIUM BLOOD Routine 10/17/2022 12:44 AM CDT GLUCOSE - POINT OF CARE Routine 10/17/2022 12:06 AM CDT GLUCOSE - POINT OF CARE Routine 10/16/2022 8:46 PM CDT EKG 12-LEAD STAT 10/16/2022 4:41 PM CDT Bradycardia GLUCOSE - POINT OF CARE Routine 10/16/2022 4:22 PM CDT GLUCOSE - POINT OF CARE Routine 10/16/2022 1:12 PM CDT XR ABDOMEN KUB PORTABLE STAT 10/16/2022 12:54 PM CDT Ischemic stroke (HCC) EKG 12-LEAD Routine 10/16/2022 12:32 PM CDT Bradycardia GLUCOSE - POINT OF CARE Routine 10/16/2022 8:47 AM CDT GLUCOSE - POINT OF CARE Routine 10/16/2022 4:[address] HEAD WO CONTRAST Routine 10/16/2022 3 :55 AM CDT Weakness TSH REFLEX FREE T4 Routine 10/16/2022 12 :29 AM CDT CBC W AUTO DIFFERENTIAL STAT 10/16/2022 12:29 AM CDT BASIC METABOLIC PANEL (CALCIUM TOTAL) AM Draw 10/16/2022 12:29 AM CDT PHOSPHORUS BLOOD Routine 10/16/2022 12:2 9 AM CDT MAGNESIUM BLOOD Routine 10/16/2022 12:29 AM CDT GLUCOSE - POINT OF CARE Routine 10/16/2022 12:14 AM CDT GLUCOSE - POINT OF CARE Routine 10/15/2022 9:10 PM CDT GLUCOSE - POINT OF CARE Routine 10/15/2022 4:26 PM CDT GLUCOSE - POINT OF CARE Routine 10/15/2022 12:08 PM CDT GLUCOSE - POINT OF CARE Routine 10/15/2022 8:11 AM CDT GLUCOSE - POINT OF CARE Routine 10/15/2022 4:13 AM CDT GLUCOSE - POINT OF CARE Routine 10/14/2022 11:59 PM CDT CBC W AUTO DIFFERENTIAL STAT 10/14/2022 11:57 PM CDT BASIC METABOLIC PANEL (CALCIUM TOTAL) AM Draw 10/14/2022 11:57 PM CDT PHOSPHORUS BLOOD Routine 10/14/2022 11:5 7 PM CDT MAGNESIUM BLOOD Routine 10/14/2022 11:57 PM CDT GLUCOSE - POINT OF CARE Routine 10/14/2022 8:25 PM CDT ECHO COMPLETE W CONTRAST W BUBBLE STUDY Routine 10/14/2022 4:41 PM CDT Weakness GLUCOSE - POINT OF CARE Routine 10/14/2022 4:06 PM CDT GLUCOSE - POINT OF CARE Routine 10/14/2022 12:[address] HEAD WO CONTRAST Routine 10/14/2022 1 0:35 AM CDT Weakness GLUCOSE - POINT OF CARE Routine 10/14/2022 8:10 AM CDT GLUCOSE - POINT OF CARE Routine 10/14/2022 3:02 AM CDT CBC W AUTO DIFFERENTIAL STAT 10/14/2022 1:18 AM CDT BASIC METABOLIC PANEL (CALCIUM TOTAL) AM Draw 10/14/2022 1:18 AM CDT TRIGLYCERIDES BLOOD AM Draw 10/14/2022 1 :18 AM CDT PHOSPHORUS BLOOD Routine 10/14/2022 1:18 AM CDT MAGNESIUM BLOOD Routine 10/14/2022 1:18 AM CDT GLUCOSE - POINT OF CARE Routine 10/14/2022 12:27 AM CDT MRI BRAIN WO CONTRAST STAT 10/14/2022 12:00 AM CDT Weakness XR ABDOMEN KUB PORTABLE STAT 10/13/2022 10:23 PM CDT Dysphagia, unspecified type CT HEAD WO CONTRAST STAT 10/13/2022 8 :29 PM CDT Weakness GLUCOSE - POINT OF CARE Routine 10/13/2022 8:02 PM CDT GLUCOSE - POINT OF CARE Routine 10/13/2022 3:47 PM CDT CARDIAC EKG ORDER 10/13/2022 3:1 2 PM CDT TROPONIN-I HIGH SENSITIVE STAT 10/13/2022 3:07 PM CDT XR CHEST 1VW PORTABLE STAT 10/13/2022 12:10 PM CDT Respiratory acidosis TROPONIN-I HIGH SENSITIVE STAT 10/13/2022 12:08 PM CDT GLUCOSE - POINT OF CARE Routine 10/13/2022 12:04 PM CDT XR ABDOMEN KUB PORTABLE STAT 10/13/2022 11:00 AM CDT Weakness GLUCOSE - POINT OF CARE Routine 10/13/2022 9:33 AM CDT EKG 12-LEAD Routine 10/13/2022 8:46 AM CDT Weakness GLUCOSE - POINT OF CARE Routine 10/13/2022 8:37 AM CDT URINALYSIS REFLEX TO MICROSCOPIC NO CULTURE STAT 10/13/2022 6:40 AM CDT URINE DRUG SCREEN IMMUNOASSAY STAT 10/13/2022 6:40 AM CDT CBC W AUTO DIFFERENTIAL AM Draw 10/13/2022 5:35 AM CDT BLOOD GASES ART + COOX PANEL Routine 10/13/2022 5:35 AM CDT GLUCOSE - POINT OF CARE Routine 10/13/2022 5:34 AM CDT BLOOD GASES ART + COOX PANEL STAT 10/13/2022 2:28 AM CDT LIPID PROFILE Routine 10/13/2022 2:28 AM CDT GLUCOSE - POINT OF CARE Routine 10/13/2022 2:27 AM CDT XR CHEST 1VW PORTABLE Routine 10/13/2022 1:53 AM CDT Dyspnea, unspecified type XR CHEST 1VW PORTABLE STAT 10/13/2022 1:38 AM CDT Dyspnea, unspecified type Respiratory acidosis CT NECK SOFT TISSUE W CONT Routine 10/13/2022 1:28 AM CDT Dyspnea, unspecified type CT HEAD WO CONTRAST STAT 10/13/2022 1 :25 AM CDT Ischemic stroke (HCC) CBC W AUTO DIFFERENTIAL STAT 10/12/2022 11:53 PM CDT BASIC METABOLIC PANEL (CALCIUM TOTAL) STAT 10/12/2022 11:53 PM CDT PHOSPHORUS BLOOD STAT 10/12/2022 11:5 3 PM CDT MAGNESIUM BLOOD STAT 10/12/2022 11:53 PM CDT BLOOD GASES ART + COOX PANEL STAT 10/12/2022 11:53 PM CDT GLUCOSE - POINT OF CARE Routine 10/12/2022 10:40 PM CDT TROPONIN-I HIGH SENSITIVE REFLEX 1HOUR Timed 10/12/2022 10:31 PM CDT HEMOGLOBIN A1C Add on 10/12/2022 10:31 PM CDT XR CHEST 1VW PORTABLE STAT 10/12/2022 9:31 PM CDT Weakness BASIC METABOLIC PANEL (CALCIUM TOTAL) STAT 10/12/2022 8:23 PM CDT PT-INR [facility] STAT 10/12/2022 8:21 PM CDT TROPONIN-I HIGH SENSITIVE BASELINE + 1HR STAT 10/12/2022 8:21 PM CDT COMPREHENSIVE METABOLIC PANEL STAT 10/12/2022 8:21 PM CDT PHOSPHORUS BLOOD STAT 10/12/2022 8:21 PM CDT MAGNESIUM BLOOD STAT 10/12/2022 8:[address] ANGIO BRAIN NECK STROKE STAT 10/12/2022 7:42 PM CDT Weakness OT EVAL AND TREAT Routine 10/12/2022 7:3 8 PM CDT PT EVAL AND TREAT Routine 10/12/2022 7:[address] BRAIN STROKE STAT 10/12/2022 7:32 PM CDT Weakness GLUCOSE - POINT OF CARE Routine 10/12/2022 7:19 PM CDT documented in this encounter Results * CARDIAC EKG ORDER (10/30/2022 2:23 PM CDT) Narrative 10/30/2022 2:23 PM CDT Ordered by an unspecified provider. Scanned Document CARDIAC SERVICES ORD ERABLES * (ABNORMAL) GLUCOSE - POINT OF CARE (10/28/2022 6:03 PM CDT) Glucose WB/POC 216(H) 70 - 115 mg/dL 10/28/2022 6:07 PM CDT [facility] Specimen Type Cap Fingerstick 2022 6:07 PM CDT [facility] Blood BLOOD SPECIMEN / Unknown 10/28/2022 6:03 PM CDT 10/28/2022 6:07 PM CDT Palma Rocha MD LAB - POINT OF CARE ORDERABLES [address] [address], [facility] [phone] * (ABNORMAL) GLUCOSE - POINT OF CARE (10/28/2022 12:12 PM CDT) Glucose WB/POC 188(H) 70 - 115 mg/dL 10/28/2022 12:18 PM CDT [facility] Specimen Type Cap Fingerstick 2022 12:18 PM CDT [facility] Blood BLOOD SPECIMEN / Unknown 10/28/2022 12:12 PM CDT 10/28/2022 12:18 PM CDT Palma Rocha MD LAB - POINT OF CARE ORDERABLES [address] [address], [place] [phone] * (ABNORMAL) GLUCOSE - POINT OF CARE (10/28/2022 8:33 AM CDT) Glucose WB/POC 148(H) 70 - 115 mg/dL 10/28/2022 8:38 AM CDT [facility] Specimen Type Cap Fingerstick 2022 8:38 AM CDT [facility] Blood BLOOD SPECIMEN / Unknown 10/28/2022 8:33 AM CDT 10/28/2022 8:38 AM CDT Palma Rocha MD LAB - POINT OF CARE ORDERABLES [address] [address], [place] [phone] * (ABNORMAL) GLUCOSE - POINT OF CARE (10/27/2022 8:42 PM CDT) Glucose WB/POC 152(H) 70 - 115 mg/dL 10/27/2022 8:47 PM CDT [facility] Specimen Type Cap Fingerstick 2022 8:47 PM CDT [facility] Blood BLOOD SPECIMEN / Unknown 10/27/2022 8:42 PM CDT 10/27/2022 8:47 PM CDT Palma Rocha MD LAB - POINT OF CARE ORDERABLES [address] [address], [place] [phone] * (ABNORMAL) GLUCOSE - POINT OF CARE (10/27/2022 6:15 PM CDT) Glucose WB/POC 151(H) 70 - 115 mg/dL 10/27/2022 6:15 PM CDT [facility] Specimen Type Cap Fingerstick 2022 6:15 PM CDT [facility] Blood BLOOD SPECIMEN / Unknown 10/27/2022 6:15 PM CDT 10/27/2022 6:15 PM CDT Palma Rocha MD LAB - POINT OF CARE ORDERABLES [address] [address], [place] [phone] * (ABNORMAL) GLUCOSE - POINT OF CARE (10/27/2022 11:57 AM CDT) Glucose WB/POC 183(H) 70 - 115 mg/dL 10/27/2022 11:58 AM CDT [facility] Specimen Type Cap Fingerstick 2022 11:58 AM CDT [facility] Blood BLOOD SPECIMEN / Unknown 10/27/2022 11:57 AM CDT 10/27/2022 11:58 AM CDT Palma Rocha MD LAB - POINT OF CARE ORDERABLES [address] [address], [place] [phone] * (ABNORMAL) GLUCOSE - POINT OF CARE (10/27/2022 7:51 AM CDT) Glucose WB/POC 153(H) 70 - 115 mg/dL 10/27/2022 7:51 AM CDT [facility] Specimen Type Cap Fingerstick 2022 7:51 AM CDT [facility] Blood BLOOD SPECIMEN / Unknown 10/27/2022 7:51 AM CDT 10/27/2022 7:51 AM CDT Palma Rocha MD LAB - POINT OF CARE ORDERABLES [facility] [address] [place] [address], [facility] [phone] * (ABNORMAL) COMPREHENSIVE METABOLIC PANEL (10/27/2022 5:56 AM CDT) BUN 31(H) 7 - 26 mg/dL 10/27/2022 8:54 AM [facility] Creatinine 1.35(H) 0.71 - 1.16 mg/dL 10/27/2022 8:54 AM [facility] Sodium 141 136 - 145 mmol/L 10/27/2022 8:54 AM [facility] Potassium 4.3 3.5 - 4.5 mmol/L 10/27/2022 8:54 AM [facility] Chloride 109(H) 98 - 107 mmol/L 10/27/2022 8:54 AM [facility] CO2 25 22 - 29 mmol/L 10/27/2022 8:54 AM [facility] Glucose 128(H) 70 - 115 mg/dL 10/27/2022 8:54 AM [facility] Calcium 9.5 8.4 - 10.2 mg/dL 10/27/2022 8:54 AM [facility] Protein Total 6.4 6.0 - 8.3 g/dL 10/27/2022 8:54 AM [facility] Albumin 2.7(L) 3.4 - 5.0 g/dL 10/27/2022 8:54 AM [facility] Bilirubin Total 0.6 0.2 - 1.2 mg/dL 10/27/2022 8:54 AM [facility] Alkaline Phosphatase 135 40 - 150 U/L 10/27/2022 8:54 AM [facility] ALT 58(H) 5 - 55 U/L 10/27/2022 8:54 AM [facility] AST 23 5 - 34 U/L 10/27/2022 8:54 AM [facility] Anion Gap 11 8 - 18 10/27/2022 8:54 AM CDT [facility] BUN/Creatinine Ratio 23 7 - 23 10/27/2022 8:54 AM CDT [facility] Osmolality Calculated 300 270 - 300 mOsm/kg 10/27/2022 8:54 AM CDT [facility] Albumin/Globulin Ratio 0.7(L) 1.1 - 2.3 10/27/2022 8:54 AM T [facility] eGFR by CKD-EPI 58(L) >=90 mL/min/1.7 3 m2 10/27/2022 8:54 AM CDT [facility] Blood BLOOD SPECIMEN / Unknown Lab Venipuncture / Unknown 10/27/2022 5:56 AM CDT 10/27/2022 7:58 AM CDT Francis Shepherd III, MD LAB - CHEMISTRY ORDERABLES [address] [address], [facility] [phone] * PHOSPHORUS BLOOD (10/27/2022 5:56 AM CDT) Phosphorus 4.2 2.8 - 5.1 mg/dL 10/27/2022 8:26 AM CDT [facility] Blood BLOOD SPECIMEN / Unknown Lab Venipuncture / Unknown 10/27/2022 5:56 AM CDT 10/27/2022 7:58 AM CDT Francis Shepherd III, MD LAB - CHEMISTRY ORDERABLES [address] [address], [facility] [phone] * MAGNESIUM BLOOD (10/27/2022 5:56 AM CDT) Magnesium 2.0 1.6 - 2.6 mg/dL 10/27/2022 8:26 AM CDT [facility] Blood BLOOD SPECIMEN / Unknown Lab Venipuncture / Unknown 10/27/2022 5:56 AM CDT 10/27/2022 7:58 AM CDT Francis Shepherd III, MD LAB - CHEMISTRY ORDERABLES Performing Organization Address [facility]/ZIP Co de Phone Number [address] [address], [place] [phone] * (ABNORMAL) GLUCOSE - POINT OF CARE (10/26/2022 9:29 PM CDT) Glucose WB/POC 160(H) 70 - 115 mg/dL 10/26/2022 9:33 PM CDT [facility] Specimen Type Cap Fingerstick 2022 9:33 PM CDT [facility] Blood BLOOD SPECIMEN / Unknown 10/26/2022 9:29 PM CDT 10/26/2022 9:33 PM CDT Francis Shepherd III, MD LAB - POINT OF ARE ORDERABLES Performing Organization Address [facility] Co de Phone Number [address] [address], [place] [phone] * (ABNORMAL) GLUCOSE - POINT OF CARE (10/26/2022 5:55 PM CDT) Glucose WB/POC 150(H) 70 - 115 mg/dL 10/26/2022 5:56 PM CDT [facility] Specimen Type Cap Fingerstick 2022 5:56 PM CDT [facility] Blood BLOOD SPECIMEN / Unknown 10/26/2022 5:55 PM CDT 10/26/2022 5:56 PM CDT Francis Shepherd III, MD LAB - POINT [facility] ARE ORDERABLES Performing Organization Address [facility] [place]/ZIP Co de Phone Number [address] [address], [place] [phone] * (ABNORMAL) GLUCOSE - POINT OF CARE (10/26/2022 12:56 PM CDT) Glucose WB/POC 182(H) 70 - 115 mg/dL 10/26/2022 12:56 PM CDT [facility] Specimen Type Cap Fingerstick 2022 12:56 PM CDT [facility] Blood BLOOD SPECIMEN / Unknown 10/26/2022 12:56 PM CDT 10/26/2022 12:56 PM CDT Francis Shepherd III, MD LAB - POINT OF ARE ORDERABLES Performing Organization Address City/[facility] [place]/ZIP Co de Phone Number [address] [address], [place] [phone] * (ABNORMAL) GLUCOSE - POINT OF CARE (10/26/2022 7:48 AM CDT) Glucose WB/POC 149(H) 70 - 115 mg/dL 10/26/2022 7:50 AM CDT [facility] Specimen Type Cap Fingerstick 2022 7:50 AM CDT [facility] Blood BLOOD SPECIMEN / Unknown 10/26/2022 7:48 AM CDT 10/26/2022 7:50 AM CDT Francis Shepherd III, MD LAB - POINT OF ARE ORDERABLES Performing Organization Address [facility] [place]/ZIP Co de Phone Number [address] [address], [place] [phone] * PHOSPHORUS BLOOD (10/26/2022 4:14 AM CDT) Phosphorus 4.7 2.8 - 5.1 mg/dL 10/26/2022 6:03 AM CDT [facility] Blood BLOOD SPECIMEN / Unknown Lab Venipuncture / Unknown 10/26/2022 4:14 AM CDT 10/26/2022 5:11 AM CDT Gregorio Khan MD LAB - CHEMISTRY [place]ES Performing Organization Address City/[facility] [place]/ZIP Co de Phone Number [address] [address], [place] [phone] * MAGNESIUM BLOOD (10/26/2022 4:14 AM CDT) Pathologist [facility] Magnesium 2.0 1.6 - 2.6 mg/dL 10/26/2022 6:03 AM [facility] Blood BLOOD SPECIMEN / Unknown Lab Venipuncture / Unknown 10/26/2022 4:14 AM CDT 10/26/2022 5:11 AM CDT Gregorio Khan MD LAB - CHEMISTRY [place] [facility] Organization Address City/State/ZIP Co de Phone Number [facility] [address] [place] [address], [facility] [phone] * (ABNORMAL) CBC W AUTO DIFFERENTIAL (10/26/2022 4:14 AM CDT) WBC 10.5 3.5 - 10.5 10? 3 /uL 10/26/2022 5:20 AM [facility] RBC 4.27(L) 4.30 - 5.70 10? 6 /uL 10/26/2022 5:20 AM [facility] Hemoglobin 12.3 12.0 - 17.6 g/dL 10/26/2022 5:20 AM [facility] Hematocrit 38.1 35.2 - 51.7 % 10/26/2022 5:20 AM [facility] MCV 89.2 80.7 - 98.3 fL 10/26/2022 5:20 AM [facility] MCH 28.8 26.7 - 34.0 pg 10/26/2022 5:20 AM [facility] MCHC 32.3 30.8 - 35.9 g/dL 10/26/2022 5:20 AM [facility] RDW-SD 45.3 36.0 - 50.0 fL 10/26/2022 5:20 AM [facility] RDW-CV 14.2 11.2 - 14.8 % 10/26/2022 5:20 AM [facility] Platelet Count 261 150 - 400 10? 3 /uL 10/26/2022 5:20 AM [facility] MPV 9.5 9.4 - 12.9 fL 10/26/2022 5:20 AM [facility] nRBC Absolute 0.00 0 10? 3 /uL 10/26/2022 5:20 AM [facility] nRBC Auto 0.0 0 /100 WBC 10/26/2022 5:20 AM [facility] Neutrophils % 76.1(H) 35.0 - 70.0 % 10/26/2022 5:20 AM [facility] Lymphocytes % 14.3(L) 20.0 - 43.0 % 10/26/2022 5:20 AM [facility] Monocytes % 5.9 5.0 - 13.0 % 10/26/2022 5:20 AM [facility] Eosinophils % 2.4 0.0 - 6.0 % 10/26/2022 5:20 AM [facility] Basophil % 0.3 0.0 - 2.0 % 10/26/2022 5:20 AM [facility] Neutrophils Absolute 8.01(H) 1.60 - 7.00 10? 3 /uL 10/26/2022 5:20 AM [facility] Lymphocyte Absolute 1.50 1.10 - 3.90 10? 3 /uL 10/26/2022 5:20 AM [facility] Monocytes Absolute 0.62 0.26 - 1.07 10? 3 /uL 10/26/2022 5:20 AM [facility] Eosinophils Absolute 0.25 0.00 - 0.47 10? 3 /uL 10/26/2022 5:20 AM [facility] Basophils Absolute 0.03 0.00 - 0.08 10? 3 /uL 10/26/2022 5:20 AM [facility] Immature Granulocytes % 1.0 0.0 - 1.0 % 10/26/2022 5:20 AM [facility] Immature Granulocytes Absolute 0.11 10/26/2022 5:20 AM [facility] Blood BLOOD SPECIMEN / Unknown Lab Venipuncture / Unknown 10/26/2022 4:14 AM T 10/26/2022 5:11 AM CDT Gregorio Khan MD LAB - HEMATOLOGY ORD ERABLES [facility] [address] [place] [address], [facility] [phone] * (ABNORMAL) BASIC METABOLIC PANEL (CALCIUM TOTAL) (10/26/2022 4:14 AM CDT) BUN 34(H) 7 - 26 mg/dL 10/26/2022 6:03 AM [facility] Creatinine 1.35(H) 0.71 - 1.16 mg/dL 10/26/2022 6:03 AM [facility] Sodium 145 136 - 145 mmol/L 10/26/2022 6:03 AM [facility] Potassium 4.6(H) 3.5 - 4.5 mmol/L 10/26/2022 6:03 AM [facility] Chloride 112(H) 98 - 107 mmol/L 10/26/2022 6:03 AM [facility] CO2 26 22 - 29 mmol/L 10/26/2022 6:03 AM [facility] Glucose 134(H) 70 - 115 mg/dL 10/26/2022 6:03 AM [facility] Calcium 10.1 8.4 - 10.2 mg/dL 10/26/2022 6:03 AM [facility] Anion Gap 12 8 - 18 10/26/2022 6:03 AM [facility] BUN/Creatinine Ratio 25(H) 7 - 23 10/26/2022 6:03 AM [facility] Osmolality Calculated 310(H) 270 - 300 mOsm/kg 10/26/2022 6:03 AM [facility] eGFR by CKD-EPI 58(L) >=90 mL/min/1.7 3 m2 10/26/2022 6:03 AM [facility] Blood BLOOD SPECIMEN / Unknown Lab Venipuncture / Unknown 10/26/2022 4:14 AM CDT 10/26/2022 5:11 AM CDT Gregorio Khan MD LAB - CHEMISTRY [place] [address] [address], [place] [phone] * (ABNORMAL) GLUCOSE - POINT OF CARE (10/25/2022 9:09 PM CDT) Glucose WB/POC 172(H) 70 - 115 mg/dL 10/25/2022 9:14 PM CDT [facility] Specimen Type Cap Fingerstick 2022 9:14 PM CDT [facility] Blood BLOOD SPECIMEN / Unknown 10/25/2022 9:09 PM CDT 10/25/2022 9:14 PM CDT Yelitza Grey MD LAB - POINT OF CARE ORDERABLES Performing Organization Address City/[facility] [place]/ZIP Co de Phone Number [address] [address], [place] [phone] * (ABNORMAL) GLUCOSE - POINT OF CARE (10/25/2022 5:05 PM CDT) Glucose WB/POC 201(H) 70 - 115 mg/dL 10/25/2022 5:10 PM CDT [facility] Specimen Type Arterial 10/25/2022 5:10 PM CDT [facility] Blood BLOOD SPECIMEN / Unknown 10/25/2022 5:05 PM CDT 10/25/2022 5:10 PM CDT Yelitza Grey MD LAB - POINT OF CARE ORDERABLES [address] [address], [place] [phone] * (ABNORMAL) GLUCOSE - POINT OF CARE (10/25/2022 11:32 AM CDT) Glucose WB/POC 196(H) 70 - 115 mg/dL 10/25/2022 11:42 AM CDT [facility] Specimen Type Arterial 10/25/2022 11:42 AM CDT [facility] Blood BLOOD SPECIMEN / Unknown 10/25/2022 11:32 AM CDT 10/25/2022 11:42 AM CDT Yelitza Grey MD LAB - POINT OF CARE ORDERABLES [facility] [address] [place] [address], [place] [phone] * (ABNORMAL) GLUCOSE - POINT OF CARE (10/25/2022 7:48 AM CDT) Glucose WB/POC 162(H) 70 - 115 mg/dL 10/25/2022 7:53 AM CDT [facility] Specimen Type Arterial 10/25/2022 7:53 AM CDT [facility] Blood BLOOD SPECIMEN / Unknown 10/25/2022 7:48 AM CDT 10/25/2022 7:53 AM CDT Yelitza Grey MD LAB - POINT OF CARE ORDERABLES Performing Organization Address City/[facility] [place]/ZIP Co de Phone Number [address] [address], [place] [phone] * (ABNORMAL) GLUCOSE - POINT OF CARE (10/24/2022 8:56 PM CDT) Glucose WB/POC 149(H) 70 - 115 mg/dL 10/25/2022 12:23 AM CDT [facility] Specimen Type Cap Fingerstick 2022 12:23 AM CDT [facility] Blood BLOOD SPECIMEN / Unknown 10/24/2022 8:56 PM CDT 10/25/2022 12:23 AM CDT Yelitza Grey MD LAB - POINT OF CARE ORDERABLES [address] [address], [place] [phone] * (ABNORMAL) GLUCOSE - POINT OF CARE (10/24/2022 5:53 PM CDT) Glucose WB/POC 154(H) 70 - 115 mg/dL 10/24/2022 6:04 PM CDT [facility] Specimen Type Arterial 10/24/2022 6:04 PM CDT [facility] Blood BLOOD SPECIMEN / Unknown 10/24/2022 5:53 PM CDT 10/24/2022 6:04 PM CDT Yelitza Grey MD LAB - POINT OF CARE ORDERABLES [address] [address], [place] [phone] * (ABNORMAL) GLUCOSE - POINT OF CARE (10/24/2022 12:40 PM CDT) Glucose WB/POC 125(H) 70 - 115 mg/dL 10/24/2022 12:45 PM CDT [facility] Specimen Type Cap Fingerstick 2022 12:45 PM CDT [facility] Blood BLOOD SPECIMEN / Unknown 10/24/2022 12:40 PM CDT 10/24/2022 12:45 PM CDT Yelitza Grey MD LAB - POINT OF CARE ORDERABLES [address] [address], [place] [phone] * GLUCOSE - POINT OF CARE (10/24/2022 7:39 AM CDT) Glucose WB/POC 104 70 - 115 mg/dL 10/24/2022 7:44 AM CDT [facility] Specimen Type Cap Fingerstick 2022 7:44 AM CDT [facility] Blood BLOOD SPECIMEN / Unknown 10/24/2022 7:39 AM CDT 10/24/2022 7:44 AM CDT Yelitza Grey MD LAB - POINT OF CARE ORDERABLES [address] [address], [place] [phone] * GLUCOSE - POINT OF CARE (10/23/2022 9:28 PM CDT) Glucose WB/POC 112 70 - 115 mg/dL 10/24/2022 7:44 AM CDT [facility] Specimen Type Arterial 10/24/2022 7:44 AM CDT [facility] Blood BLOOD SPECIMEN / Unknown 10/23/2022 9:28 PM CDT 10/24/2022 7:44 AM CDT Yelitza Grey MD LAB - POINT OF CARE ORDERABLES Performing Organization Address City/[facility] [place]/ZIP Co de Phone Number [address] [address], [place] [phone] * (ABNORMAL) GLUCOSE - POINT OF CARE (10/23/2022 4:57 PM CDT) Glucose WB/POC 133(H) 70 - 115 mg/dL 10/23/2022 4:58 PM CDT [facility] Specimen Type Cap Fingerstick 2022 4:58 PM CDT [facility] Blood BLOOD SPECIMEN / Unknown 10/23/2022 4:57 PM CDT 10/23/2022 4:58 PM CDT Yelitza Grey MD LAB - POINT OF CARE ORDERABLES [address] [address], [place] [phone] * (ABNORMAL) GLUCOSE - POINT OF CARE (10/23/2022 11:33 AM CDT) Glucose WB/POC 171(H) 70 - 115 mg/dL 10/23/2022 11:41 AM CDT [facility] Specimen Type Cap Fingerstick 2022 11:41 AM CDT [facility] Blood BLOOD SPECIMEN / Unknown 10/23/2022 11:33 AM CDT 10/23/2022 11:41 AM CDT Yelitza Grey MD LAB - POINT OF CARE ORDERABLES [address] [address], [place] [phone] * GLUCOSE - POINT OF CARE (10/23/2022 8:13 AM CDT) Glucose WB/POC 109 70 - 115 mg/dL 10/23/2022 8:18 AM CDT [facility] Specimen Type Cap Fingerstick 2022 8:18 AM CDT [facility] Blood BLOOD SPECIMEN / Unknown 10/23/2022 8:13 AM CDT 10/23/2022 8:18 AM CDT Yelitza Grey MD LAB - POINT OF CARE ORDERABLES [address] [address], [place] [phone] * PHOSPHORUS BLOOD (10/23/2022 5:43 AM CDT) Phosphorus 3.3 2.8 - 5.1 mg/dL 10/23/2022 7:29 AM CDT [facility] Blood BLOOD SPECIMEN / Unknown Lab Venipuncture / Unknown 10/23/2022 5:43 AM CDT 10/23/2022 7:02 AM CDT Gregorio Khan MD LAB - CHEMISTRY [place]ES [address] [address], [place] [phone] * MAGNESIUM BLOOD (10/23/2022 5:43 AM CDT) Magnesium 1.7 1.6 - 2.6 mg/dL 10/23/2022 7:29 AM [facility] Blood BLOOD SPECIMEN / Unknown Lab Venipuncture / Unknown 10/23/2022 5:43 AM CDT 10/23/2022 7:02 AM CDT Gregorio Khan MD LAB - CHEMISTRY [place] [facility] Organization Address City/State/ZIP Co de Phone Number [facility] [address] [place] [address], [facility] [phone] * (ABNORMAL) CBC W AUTO DIFFERENTIAL (10/23/2022 5:43 AM CDT) WBC 14.0(H) 3.5 - 10.5 10? 3 /uL 10/23/2022 7:12 AM [facility] RBC 3.73(L) 4.30 - 5.70 10? 6 /uL 10/23/2022 7:12 AM [facility] Hemoglobin 10.9(L) 12.0 - 17.6 g/dL 10/23/2022 7:12 AM [facility] Hematocrit 33.1(L) 35.2 - 51.7 % 10/23/2022 7:12 AM [facility] MCV 88.7 80.7 - 98.3 fL 10/23/2022 7:12 AM [facility] MCH 29.2 26.7 - 34.0 pg 10/23/2022 7:12 AM [facility] MCHC 32.9 30.8 - 35.9 g/dL 10/23/2022 7:12 AM [facility] RDW-SD 43.4 36.0 - 50.0 fL 10/23/2022 7:12 AM [facility] RDW-CV 13.5 11.2 - 14.8 % 10/23/2022 7:12 AM [facility] Platelet Count 204 150 - 400 10? 3 /uL 10/23/2022 7:12 AM [facility] MPV 10.1 9.4 - 12.9 fL 10/23/2022 7:12 AM [facility] nRBC Absolute 0.00 0 10? 3 /uL 10/23/2022 7:12 AM [facility] nRBC Auto 0.0 0 /100 WBC 10/23/2022 7:12 AM [facility] Neutrophils % 79.4(H) 35.0 - 70.0 % 10/23/2022 7:12 AM [facility] Lymphocytes % 11.4(L) 20.0 - 43.0 % 10/23/2022 7:12 AM [facility] Monocytes % 5.9 5.0 - 13.0 % 10/23/2022 7:12 AM [facility] Eosinophils % 2.1 0.0 - 6.0 % 10/23/2022 7:12 AM [facility] Basophil % 0.1 0.0 - 2.0 % 10/23/2022 7:12 AM [facility] Neutrophils Absolute 11.08(H) 1.60 - 7.00 10? 3 /uL 10/23/2022 7:12 AM [facility] Lymphocyte Absolute 1.59 1.10 - 3.90 10? 3 /uL 10/23/2022 7:12 AM [facility] Monocytes Absolute 0.82 0.26 - 1.07 10? 3 /uL 10/23/2022 7:12 AM [facility] Eosinophils Absolute 0.29 0.00 - 0.47 10? 3 /uL 10/23/2022 7:12 AM [facility] Basophils Absolute 0.02 0.00 - 0.08 10? 3 /uL 10/23/2022 7:12 AM [facility] Immature Granulocytes % 1.1(H) 0.0 - 1.0 % 10/23/2022 7:12 AM [facility] Immature Granulocytes Absolute 0.16 10/23/2022 7:12 AM [facility] Blood BLOOD SPECIMEN / Unknown Lab Venipuncture / Unknown 10/23/2022 5:43 AM CDT 10/23/2022 7:02 AM T Gregorio Khan MD LAB - HEMATOLOGY ORD ERABLES [facility] [address] [place] [address], [place] [phone] * (ABNORMAL) BASIC METABOLIC PANEL (CALCIUM TOTAL) (10/23/2022 5:43 AM CDT) BUN 31(H) 7 - 26 mg/dL 10/23/2022 7:29 AM [facility] Creatinine 1.17(H) 0.71 - 1.16 mg/dL 10/23/2022 7:29 AM [facility] Sodium 141 136 - 145 mmol/L 10/23/2022 7:29 AM [facility] Potassium 4.0 3.5 - 4.5 mmol/L 10/23/2022 7:29 AM [facility] Chloride 108(H) 98 - 107 mmol/L 10/23/2022 7:29 AM [facility] CO2 26 22 - 29 mmol/L 10/23/2022 7:29 AM [facility] Glucose 106 70 - 115 mg/dL 10/23/2022 7:29 AM [facility] Calcium 9.1 8.4 - 10.2 mg/dL 10/23/2022 7:29 AM [facility] Anion Gap 11 8 - 18 10/23/2022 7:29 AM [facility] BUN/Creatinine Ratio 26(H) 7 - 23 10/23/2022 7:29 AM [facility] Osmolality Calculated 299 270 - 300 mOsm/kg 10/23/2022 7:29 AM [facility] eGFR by CKD-EPI 69(L) >=90 mL/min/1.7 3 m2 10/23/2022 7:29 AM [facility] Blood BLOOD SPECIMEN / Unknown Lab Venipuncture / Unknown 10/23/2022 5:43 AM CDT 10/23/2022 7:02 AM T Gregorio Khan MD LAB - CHEMISTRY [place]ES Performing Organization Address City/[facility] [place]/ZIP Co de Phone Number [facility] [address] [place] [address], [place] [phone] * (ABNORMAL) GLUCOSE - POINT OF CARE (10/22/2022 8:52 PM CDT) Glucose WB/POC 118(H) 70 - 115 mg/dL 10/22/2022 8:57 PM CDT [facility] Specimen Type Cap Fingerstick 2022 8:57 PM CDT [facility] Blood BLOOD SPECIMEN / Unknown 10/22/2022 8:52 PM CDT 10/22/2022 8:57 PM CDT Yelitza Grey MD LAB - POINT OF CARE ORDERABLES [address] [address], [facility] [phone] * (ABNORMAL) GLUCOSE - POINT OF CARE (10/22/2022 5:27 PM CDT) Glucose WB/POC 152(H) 70 - 115 mg/dL 10/22/2022 5:29 PM CDT [facility] Specimen Type Cap Fingerstick 2022 5:29 PM CDT [facility] Blood BLOOD SPECIMEN / Unknown 10/22/2022 5:27 PM CDT 10/22/2022 5:29 PM CDT Yelitza Grey MD LAB - POINT OF CARE ORDERABLES [address] [address], [place] [phone] * (ABNORMAL) GLUCOSE - POINT OF CARE (10/22/2022 12:09 PM CDT) Glucose WB/POC 162(H) 70 - 115 mg/dL 10/22/2022 12:16 PM CDT [facility] Specimen Type Cap Fingerstick 2022 12:16 PM CDT [facility] Blood BLOOD SPECIMEN / Unknown 10/22/2022 12:09 PM CDT 10/22/2022 12:16 PM CDT Yelitza Grey MD LAB - POINT OF CARE ORDERABLES Performing Organization Address City/[facility] [place]/ZIP Co de Phone Number [address] [address], [place] [phone] * (ABNORMAL) GLUCOSE - POINT OF CARE (10/22/2022 7:33 AM CDT) Pathologist [facility] Glucose WB/POC 123(H) 70 - 115 mg/dL 10/22/2022 7:41 AM CDT [facility] Specimen Type Cap Fingerstick 2022 7:41 AM T [facility] Blood BLOOD SPECIMEN / Unknown 10/22/2022 7:33 AM CDT 10/22/2022 7:41 AM CDT Yelitza Grey MD LAB - POINT OF CARE ORDERABLES Performing Organization Address [facility] [place]/ZIP Co de Phone Number [address] [address], [place] [phone] * (ABNORMAL) BASIC METABOLIC PANEL (CALCIUM TOTAL) (10/22/2022 5:52 AM CDT) [facility] BUN 29(H) 7 - 26 mg/dL 10/22/2022 7:26 AM [facility] Creatinine 1.00 0.71 - 1.16 mg/dL 10/22/2022 7:26 AM [facility] Sodium 142 136 - 145 mmol/L 10/22/2022 7:26 AM [facility] Potassium 4.2 3.5 - 4.5 mmol/L 10/22/2022 7:26 AM [facility] Chloride 108(H) 98 - 107 mmol/L 10/22/2022 7:26 AM [facility] CO2 28 22 - 29 mmol/L 10/22/2022 7:26 AM [facility] Glucose 111 70 - 115 mg/dL 10/22/2022 7:26 AM [facility] Calcium 9.2 8.4 - 10.2 mg/dL 10/22/2022 7:26 AM T [facility] Anion Gap 10 8 - 18 10/22/2022 7:26 AM T [facility] BUN/Creatinine Ratio 29(H) 7 - 23 10/22/2022 7:26 AM T [facility] Osmolality Calculated 301(H) 270 - 300 mOsm/kg 10/22/2022 7:26 AM [facility] eGFR by CKD-EPI 83(L) >=90 mL/min/1.7 3 m2 10/22/2022 7:26 AM T [facility] Blood BLOOD SPECIMEN / Unknown Lab Venipuncture / Unknown 10/22/2022 5:52 AM CDT 10/22/2022 6:53 AM CDT Yelitza Grey MD LAB - CHEMISTRY ORD ERABLES [address] [address], [place] [phone] * (ABNORMAL) GLUCOSE - POINT OF CARE (10/21/2022 9:08 PM CDT) Glucose WB/POC 129(H) 70 - 115 mg/dL 10/21/2022 9:13 PM CDT [facility] Specimen Type Cap Fingerstick 2022 9:13 PM CDT [facility] Blood BLOOD SPECIMEN / Unknown 10/21/2022 9:08 PM CDT 10/21/2022 9:13 PM CDT Yelitza Grey MD LAB - POINT OF CARE ORDERABLES [address] [address], [place] [phone] * (ABNORMAL) GLUCOSE - POINT OF CARE (10/21/2022 5:36 PM CDT) Glucose WB/POC 123(H) 70 - 115 mg/dL 10/21/2022 5:52 PM CDT [facility] Specimen Type Cap Fingerstick 2022 5:52 PM CDT [facility] Blood BLOOD SPECIMEN / Unknown 10/21/2022 5:36 PM CDT 10/21/2022 5:52 PM CDT Yelitza Grey MD LAB - POINT OF CARE ORDERABLES [facility] [address] [place] [address], [place] [phone] * (ABNORMAL) GLUCOSE - POINT OF CARE (10/21/2022 12:19 PM CDT) Glucose WB/POC 180(H) 70 - 115 mg/dL 10/21/2022 12:27 PM CDT [facility] Specimen Type Cap Fingerstick 2022 12:27 PM CDT [facility] Blood BLOOD SPECIMEN / Unknown 10/21/2022 12:19 PM CDT 10/21/2022 12:27 PM CDT Provider Unknown LAB - POINT OF CARE ORDERABLES [address] [address], [place] [phone] * GLUCOSE - POINT OF CARE (10/21/2022 8:00 AM CDT) Glucose WB/POC 106 70 - 115 mg/dL 10/21/2022 8:05 AM CDT [facility] Specimen Type Cap Fingerstick 2022 8:05 AM CDT [facility] Blood BLOOD SPECIMEN / Unknown 10/21/2022 8:00 AM CDT 10/21/2022 8:05 AM CDT Provider Unknown LAB - POINT OF CARE ORDERABLES [facility] [address] [place] [address], [place] [phone] * PHOSPHORUS BLOOD (10/21/2022 5:40 AM CDT) [facility] Phosphorus 2.8 2.8 - 5.1 mg/dL 10/21/2022 7:18 AM CDT [facility] Blood BLOOD SPECIMEN / Unknown Lab Venipuncture / Unknown 10/21/2022 5:40 AM CDT 10/21/2022 6:45 AM CDT Gregorio Khan MD LAB - CHEMISTRY [place]ES Performing Organization Address City/[facility] [place]/ZIP Co de Phone Number [address] [address], [facility] [phone] * MAGNESIUM BLOOD (10/21/2022 5:40 AM CDT) [facility] Magnesium 1.6 1.6 - 2.6 mg/dL 10/21/2022 7:18 AM CDT [facility] Blood BLOOD SPECIMEN / Unknown Lab Venipuncture / Unknown 10/21/2022 5:40 AM CDT 10/21/2022 6:45 AM CDT Gregorio Khan MD LAB - CHEMISTRY [place] Performing Organization Address [facility] Co de Phone Number [address] [address], [facility] [phone] * (ABNORMAL) CBC W AUTO DIFFERENTIAL (10/21/2022 5:40 AM CDT) [facility] WBC 9.2 3.5 - 10.5 10? 3 /uL 10/21/2022 6:57 AM CDT [facility] RBC 3.50(L) 4.30 - 5.70 10? 6 /uL 10/21/2022 6:57 AM CDT [facility] Hemoglobin 10.2(L) 12.0 - 17.6 g/dL 10/21/2022 6:57 AM CDT [facility] Hematocrit 31.8(L) 35.2 - 51.7 % 10/21/2022 6:57 AM CDT [facility] MCV 90.9 80.7 - 98.3 fL 10/21/2022 6:57 AM [facility] MCH 29.1 26.7 - 34.0 pg 10/21/2022 6:57 AM [facility] MCHC 32.1 30.8 - 35.9 g/dL 10/21/2022 6:57 AM [facility] RDW-SD 46.6 36.0 - 50.0 fL 10/21/2022 6:57 AM [facility] RDW-CV 14.1 11.2 - 14.8 % 10/21/2022 6:57 AM [facility] Platelet Count 172 150 - 400 10? 3 /uL 10/21/2022 6:57 AM [facility] MPV 9.8 9.4 - 12.9 fL 10/21/2022 6:57 AM [facility] nRBC Absolute 0.00 0 10? 3 /uL 10/21/2022 6:57 AM [facility] nRBC Auto 0.0 0 /100 WBC 10/21/2022 6:57 AM [facility] Neutrophils % 67.5 35.0 - 70.0 % 10/21/2022 6:57 AM [facility] Lymphocytes % 20.5 20.0 - 43.0 % 10/21/2022 6:57 AM [facility] Monocytes % 5.9 5.0 - 13.0 % 10/21/2022 6:57 AM [facility] Eosinophils % 4.6 0.0 - 6.0 % 10/21/2022 6:57 AM [facility] Basophil % 0.2 0.0 - 2.0 % 10/21/2022 6:57 AM [facility] Neutrophils Absolute 6.21 1.60 - 7.00 10? 3 /uL 10/21/2022 6:57 AM [facility] Lymphocyte Absolute 1.88 1.10 - 3.90 10? 3 /uL 10/21/2022 6:57 AM [facility] Monocytes Absolute 0.54 0.26 - 1.07 10? 3 /uL 10/21/2022 6:57 AM [facility] Eosinophils Absolute 0.42 0.00 - 0.47 10? 3 /uL 10/21/2022 6:57 AM [facility] Basophils Absolute 0.02 0.00 - 0.08 10? 3 /uL 10/21/2022 6:57 AM [facility] Immature Granulocytes % 1.3(H) 0.0 - 1.0 % 10/21/2022 6:57 AM [facility] Immature Granulocytes Absolute 0.12 10/21/2022 6:57 AM [facility] Blood BLOOD SPECIMEN / Unknown Lab Venipuncture / Unknown 10/21/2022 5:40 AM CDT 10/21/2022 6:45 AM CDT Gregorio Khan MD LAB - HEMATOLOGY ORD ERABLES [facility] [address] [place] [address], [facility] [phone] * (ABNORMAL) BASIC METABOLIC PANEL (CALCIUM TOTAL) (10/21/2022 5:40 AM CDT) BUN 31(H) 7 - 26 mg/dL 10/21/2022 7:26 AM [facility] Creatinine 1.00 0.71 - 1.16 mg/dL 10/21/2022 7:26 AM [facility] Sodium 144 136 - 145 mmol/L 10/21/2022 7:26 AM [facility] Potassium 4.1 3.5 - 4.5 mmol/L 10/21/2022 7:26 AM [facility] Chloride 112(H) 98 - 107 mmol/L 10/21/2022 7:26 AM [facility] CO2 28 22 - 29 mmol/L 10/21/2022 7:26 AM [facility] Glucose 109 70 - 115 mg/dL 10/21/2022 7:26 AM [facility] Calcium 9.1 8.4 - 10.2 mg/dL 10/21/2022 7:26 AM [facility] Anion Gap 8 8 - 18 10/21/2022 7:26 AM [facility] BUN/Creatinine Ratio 31(H) 7 - 23 10/21/2022 7:26 AM CDT [facility] Osmolality Calculated 305(H) 270 - 300 mOsm/kg 10/21/2022 7:26 AM CDT [facility] eGFR by CKD-EPI 83(L) >=90 mL/min/1.7 3 m2 10/21/2022 7:26 AM CDT [facility] Blood BLOOD SPECIMEN / Unknown Lab Venipuncture / Unknown 10/21/2022 5:40 AM CDT 10/21/2022 6:45 AM CDT Gregorio Khan MD LAB - CHEMISTRY ORDE JD [address] [address], [place] [phone] * GLUCOSE - POINT OF CARE (10/21/2022 4:05 AM CDT) Glucose WB/POC 106 70 - 115 mg/dL 10/21/2022 4:10 AM CDT [facility] Specimen Type Cap Fingerstick 2022 4:10 AM CDT [facility] Blood BLOOD SPECIMEN / Unknown 10/21/2022 4:05 AM CDT 10/21/2022 4:10 AM CDT Gregorio Khan MD LAB - POINT OF CARE ORDERABLES [address] [address], [place] [phone] * (ABNORMAL) GLUCOSE - POINT OF CARE (10/21/2022 12:01 AM CDT) Glucose WB/POC 116(H) 70 - 115 mg/dL 10/21/2022 12:06 AM CDT [facility] Specimen Type Cap Fingerstick 2022 12:06 AM CDT [facility] Blood BLOOD SPECIMEN / Unknown 10/21/2022 12:01 AM CDT 10/21/2022 12:06 AM CDT Gregorio Khan MD LAB - POINT OF CARE ORDERABLES Performing Organization Address City/[facility]/ZIP Co de Phone Number [address] [address], [place] [phone] * GLUCOSE - POINT OF CARE (10/20/2022 8:19 PM CDT) Glucose WB/POC 91 70 - 115 mg/dL 10/20/2022 8:24 PM CDT [facility] Specimen Type Cap Fingerstick 2022 8:24 PM CDT [facility] Blood BLOOD SPECIMEN / Unknown 10/20/2022 8:19 PM CDT 10/20/2022 8:24 PM CDT Gregorio Khan MD LAB - POINT OF CARE ORDERABLES Performing Organization Address [facility]/ZIP Co de Phone Number [address] [address], [place] [phone] * GLUCOSE - POINT OF CARE (10/20/2022 5:12 PM CDT) Glucose WB/POC 108 70 - 115 mg/dL 10/20/2022 5:17 PM CDT [facility] Specimen Type Cap Fingerstick 2022 5:17 PM CDT [facility] Blood BLOOD SPECIMEN / Unknown 10/20/2022 5:12 PM CDT 10/20/2022 5:17 PM CDT Gregorio Khan MD LAB - POINT OF CARE ORDERABLES [address] [address], [place] [phone] * (ABNORMAL) GLUCOSE - POINT OF CARE (10/20/2022 12:29 PM CDT) Glucose WB/POC 269(H) 70 - 115 mg/dL 10/20/2022 12:41 PM CDT [facility] Specimen Type Cap Fingerstick 2022 12:41 PM CDT [facility] Blood BLOOD SPECIMEN / Unknown 10/20/2022 12:29 PM CDT 10/20/2022 12:41 PM CDT Gregorio Khan MD LAB - POINT OF CARE ORDERABLES Performing Organization Address City/[facility]/ZIP Co de Phone Number [address] [address], [place] [phone] * (ABNORMAL) GLUCOSE - POINT OF CARE (10/20/2022 8:01 AM CDT) Glucose WB/POC 185(H) 70 - 115 mg/dL 10/20/2022 8:06 AM CDT [facility] Specimen Type Cap Fingerstick 2022 8:06 AM CDT [facility] Blood BLOOD SPECIMEN / Unknown 10/20/2022 8:01 AM CDT 10/20/2022 8:06 AM CDT Gregorio Khan MD LAB - POINT OF CARE ORDERABLES Performing Organization Address City/[facility]/ZIP Co de Phone Number [address] [address], [place] [phone] * (ABNORMAL) GLUCOSE - POINT OF CARE (10/20/2022 4:25 AM CDT) Glucose WB/POC 142(H) 70 - 115 mg/dL 10/20/2022 4:28 AM CDT [facility] Specimen Type Cap Fingerstick 2022 4:28 AM CDT [facility] Blood BLOOD SPECIMEN / Unknown 10/20/2022 4:25 AM CDT 10/20/2022 4:28 AM CDT Gregorio Khan MD LAB - POINT OF CARE ORDERABLES [address] [address], [place] [phone] * GLUCOSE - POINT OF CARE (10/19/2022 11:34 PM CDT) Glucose WB/POC 113 70 - 115 mg/dL 10/20/2022 4:28 AM [facility] Specimen Type Cap Fingerstick 2022 4:28 AM [facility] Blood BLOOD SPECIMEN / Unknown 10/19/2022 11:34 PM CDT 10/20/2022 4:28 AM CDT Gregorio Khan MD LAB - POINT OF CARE ORDERABLES [facility] [address] [place] [address], [facility] [phone] * (ABNORMAL) BASIC METABOLIC PANEL (CALCIUM TOTAL) (10/19/2022 11:02 PM CDT) [facility] BUN 40(H) 7 - 26 mg/dL 10/19/2022 11:44 PM [facility] Creatinine 1.06 0.71 - 1.16 mg/dL 10/19/2022 11:44 PM [facility] Sodium 153(H) 136 - 145 mmol/L 10/19/2022 11:44 PM [facility] Potassium 4.2 3.5 - 4.5 mmol/L 10/19/2022 11:44 PM [facility] Chloride 120(H) 98 - 107 mmol/L 10/19/2022 11:44 PM [facility] CO2 27 22 - 29 mmol/L 10/19/2022 11:44 PM [facility] Glucose 123(H) 70 - 115 mg/dL 10/19/2022 11:44 PM [facility] Calcium 9.4 8.4 - 10.2 mg/dL 10/19/2022 11:44 PM [facility] Anion Gap 10 8 - 18 10/19/2022 11:44 PM [facility] BUN/Creatinine Ratio 38(H) 7 - 23 10/19/2022 11:44 PM [facility] Osmolality Calculated 327(H) 270 - 300 mOsm/kg 10/19/2022 11:44 PM [facility] eGFR by CKD-EPI 77(L) >=90 mL/min/1.7 3 m2 10/19/2022 11:44 PM [facility] Blood BLOOD SPECIMEN / Unknown Lab Venipuncture / Unknown 10/19/2022 11:02 PM CDT 10/19/2022 11:32 PM CDT Naseem Randolph MD LAB - CHEMISTRY FEL[facility]ES [facility] Organization Address City/State/ZIP Co de Phone Number [facility] [address] [place] [address], [facility] [phone] * (ABNORMAL) CBC W AUTO DIFFERENTIAL (10/19/2022 11:02 PM CDT) WBC 9.5 3.5 - 10.5 10? 3 /uL 10/19/2022 11:21 PM [facility] RBC 3.58(L) 4.30 - 5.70 10? 6 /uL 10/19/2022 11:21 PM [facility] Hemoglobin 10.4(L) 12.0 - 17.6 g/dL 10/19/2022 11:21 PM [facility] Hematocrit 32.1(L) 35.2 - 51.7 % 10/19/2022 11:21 PM [facility] MCV 89.7 80.7 - 98.3 fL 10/19/2022 11:21 PM [facility] MCH 29.1 26.7 - 34.0 pg 10/19/2022 11:21 PM [facility] MCHC 32.4 30.8 - 35.9 g/dL 10/19/2022 11:21 PM [facility] RDW-SD 46.6 36.0 - 50.0 fL 10/19/2022 11:21 PM [facility] RDW-CV 14.3 11.2 - 14.8 % 10/19/2022 11:21 PM [facility] Platelet Count 164 150 - 400 10? 3 /uL 10/19/2022 11:21 PM [facility] MPV 9.7 9.4 - 12.9 fL 10/19/2022 11:21 PM [facility] nRBC Absolute 0.00 0 10? 3 /uL 10/19/2022 11:21 PM [facility] nRBC Auto 0.0 0 /100 WBC 10/19/2022 11:21 PM [facility] Neutrophils % 68.5 35.0 - 70.0 % 10/19/2022 11:21 PM [facility] Lymphocytes % 17.3(L) 20.0 - 43.0 % 10/19/2022 11:21 PM [facility] Monocytes % 7.6 5.0 - 13.0 % 10/19/2022 11:21 PM [facility] Eosinophils % 4.9 0.0 - 6.0 % 10/19/2022 11:21 PM [facility] Basophil % 0.2 0.0 - 2.0 % 10/19/2022 11:21 PM [facility] Neutrophils Absolute 6.52 1.60 - 7.00 10? 3 /uL 10/19/2022 11:21 PM [facility] Lymphocyte Absolute 1.65 1.10 - 3.90 10? 3 /uL 10/19/2022 11:21 PM [facility] Monocytes Absolute 0.72 0.26 - 1.07 10? 3 /uL 10/19/2022 11:21 PM [facility] Eosinophils Absolute 0.47 0.00 - 0.47 10? 3 /uL 10/19/2022 11:21 PM [facility] Basophils Absolute 0.02 0.00 - 0.08 10? 3 /uL 10/19/2022 11:21 PM [facility] Immature Granulocytes % 1.5(H) 0.0 - 1.0 % 10/19/2022 11:21 PM [facility] Immature Granulocytes Absolute 0.14 10/19/2022 11:21 PM [facility] Blood BLOOD SPECIMEN / Unknown Lab Venipuncture / Unknown 10/19/2022 11:02 PM CDT 10/19/2022 11:12 PM T Naseem Randolph MD LAB - HEMATOLOGY LAURA FERRO [address] [address], [place] [phone] * PHOSPHORUS BLOOD (10/19/2022 11:02 PM CDT) Phosphorus 3.6 2.8 - 5.1 mg/dL 10/19/2022 11:44 PM CDT [facility] Blood BLOOD SPECIMEN / Unknown Lab Venipuncture / Unknown 10/19/2022 11:02 PM CDT 10/19/2022 11:32 PM CDT Naseem Randolph MD LAB - CHEMISTRY [place]ELICE MILES Performing Organization Address City/[facility]/ZIP Co de Phone Number [address] [address], [place] [phone] * MAGNESIUM BLOOD (10/19/2022 11:02 PM CDT) Pathologist [facility] Magnesium 1.7 1.6 - 2.6 mg/dL 10/19/2022 11:44 PM CDT [facility] Blood BLOOD SPECIMEN / Unknown Lab Venipuncture / Unknown 10/19/2022 11:02 PM CDT 10/19/2022 11:32 PM CDT Naseem Randolph MD LAB - CHEMISTRY FELICE MILES Performing Organization Address City/[facility]/ZIP Co de Phone Number [address] [address], [place] [phone] * (ABNORMAL) GLUCOSE - POINT OF CARE (10/19/2022 8:19 PM CDT) Glucose WB/POC 171(H) 70 - 115 mg/dL 10/19/2022 8:30 PM CDT [facility] Specimen Type Arterial 10/19/2022 8:30 PM CDT [facility] Blood BLOOD SPECIMEN / Unknown 10/19/2022 8:19 PM CDT 10/19/2022 8:30 PM CDT Gregorio Khan MD LAB - POINT OF CARE ORDERABLES [address] [address], [place] [phone] * (ABNORMAL) GLUCOSE - POINT OF CARE (10/19/2022 4:46 PM CDT) Glucose WB/POC 209(H) 70 - 115 mg/dL 10/19/2022 4:51 PM CDT [facility] Specimen Type Cap Fingerstick 2022 4:51 PM CDT [facility] Blood BLOOD SPECIMEN / Unknown 10/19/2022 4:46 PM CDT 10/19/2022 4:51 PM CDT Gregorio Khan MD LAB - POINT OF CARE ORDERABLES Performing Organization Address City/[facility]/ZIP Co de Phone Number [address] [address], [place] [phone] * (ABNORMAL) GLUCOSE - POINT OF CARE (10/19/2022 12:37 PM CDT) Glucose WB/POC 171(H) 70 - 115 mg/dL 10/19/2022 12:45 PM CDT [facility] Specimen Type Cap Fingerstick 2022 12:45 PM CDT [facility] Blood BLOOD SPECIMEN / Unknown 10/19/2022 12:37 PM CDT 10/19/2022 12:45 PM CDT Gregorio Khan MD LAB - POINT OF CARE ORDERABLES [address] [address], [place] [phone] * FL SWALLOWING FUNCTION STUDY (10/19/2022 10:15 AM CDT) Anatomical Region Laterality Modality Chest Radiographic Evelyn ging 10/19/2022 10:2 2 AM CDT Narrative 10/19/2022 12:26 PM CDT PROCEDURE: ??FL SWALLOWING FUNCTION STUDY, DATE/TIME OF EXAM: ??10/19/2022 8:12 AM, LOCATION ??[facility] INDICATION: R13.10: Dysphagia, unspecified type ADDITIONAL CLINICAL [...] details. Report dictated by Jacobo Gupta MD (residential tech). Adiel Orourke MD have personally reviewed and interpreted this examination/study. > Interpreting Provider: Adiel Lynn MD on 10/19/2022 12:26 PM Procedure Note Adiel Lynn MD - 10/19/2022 PROCEDURE: FL SWALLOWING FUNCTION STUDY, DATE/TIME OF EXAM: 10/19/2022 8:12 AM, LOCATION [facility] INDICATION: R13.10: Dysphagia, unspecified type ADDITIONAL CLINICAL [...] details. Report dictated by Jacobo Gupta MD (residential tech). Adiel Orourke MD have personally reviewed and interpreted this examination/study. > Interpreting Provider: Adiel Lynn MD on 2:26 PM Gregorio Khan MD FLUOROSCOPY ORDERABL ES * (ABNORMAL) GLUCOSE - POINT OF CARE (10/19/2022 7:41 AM CDT) Glucose WB/POC 164(H) 70 - 115 mg/dL 10/19/2022 7:46 AM CDT [facility] Specimen Type Cap Fingerstick 2022 7:46 AM CDT [facility] Blood BLOOD SPECIMEN / Unknown 10/19/2022 7:41 AM CDT 10/19/2022 7:46 AM CDT Gregorio Khan MD LAB - POINT OF CARE ORDERABLES [address] [address], [place] [phone] * (ABNORMAL) GLUCOSE - POINT OF CARE (10/19/2022 3:57 AM CDT) Glucose WB/POC 156(H) 70 - 115 mg/dL 10/19/2022 3:58 AM CDT [facility] Specimen Type Cap Fingerstick 2022 3:58 AM CDT [facility] Blood BLOOD SPECIMEN / Unknown 10/19/2022 3:57 AM CDT 10/19/2022 3:58 AM CDT Gregorio Khan MD LAB - POINT OF CARE ORDERABLES Performing Organization Address City/[facility]/ZIP Co de Phone Number [address] [address], [place] [phone] * (ABNORMAL) GLUCOSE - POINT OF CARE (10/19/2022 1:33 AM CDT) Glucose WB/POC 133(H) 70 - 115 mg/dL 10/19/2022 1:34 AM CDT [facility] Specimen Type Cap Fingerstick 2022 1:34 AM CDT [facility] Blood BLOOD SPECIMEN / Unknown 10/19/2022 1:33 AM CDT 10/19/2022 1:34 AM CDT Gregorio Khan MD LAB - POINT OF CARE ORDERABLES [address] [address], [facility] [phone] * (ABNORMAL) GLUCOSE - POINT OF CARE (10/19/2022 12:12 AM CDT) Glucose WB/POC 160(H) 70 - 115 mg/dL 10/19/2022 12:13 AM T [facility] Specimen Type Cap Fingerstick 2022 12:13 AM T [facility] Blood BLOOD SPECIMEN / Unknown 10/19/2022 12:12 AM CDT 10/19/2022 12:13 AM CDT Gregorio Khan MD LAB - POINT OF CARE ORDERABLES Performing Organization Address City/[facility]/ZIP Co de Phone Number [address] [address], [facility] [phone] * (ABNORMAL) BASIC METABOLIC PANEL (CALCIUM TOTAL) (10/18/2022 11:01 PM CDT) BUN 37(H) 7 - 26 mg/dL 10/18/2022 11:55 PM [facility] Creatinine 1.01 0.71 - 1.16 mg/dL 10/18/2022 11:55 PM [facility] Sodium 146(H) 136 - 145 mmol/L 10/18/2022 11:55 PM [facility] Potassium 4.3 3.5 - 4.5 mmol/L 10/18/2022 11:55 PM [facility] Chloride 115(H) 98 - 107 mmol/L 10/18/2022 11:55 PM [facility] CO2 25 22 - 29 mmol/L 10/18/2022 11:55 PM [facility] Glucose 220(H) 70 - 115 mg/dL 10/18/2022 11:55 PM [facility] Calcium 9.2 8.4 - 10.2 mg/dL 10/18/2022 11:55 PM [facility] Anion Gap 10 8 - 18 10/18/2022 11:55 PM [facility] BUN/Creatinine Ratio 37(H) 7 - 23 10/18/2022 11:55 PM [facility] Osmolality Calculated 317(H) 270 - 300 mOsm/kg 10/18/2022 11:55 PM [facility] eGFR by CKD-EPI 82(L) >=90 mL/min/1.7 3 m2 10/18/2022 11:55 PM [facility] Blood BLOOD SPECIMEN / Unknown Lab Venipuncture / Unknown 10/18/2022 11:01 PM CDT 10/18/2022 11:27 PM CDT Naseem Randolph MD LAB - CHEMISTRY [facility] Organization Address City/State/ZIP Co de Phone Number [facility] [address] [place] [address], [facility] [phone] * (ABNORMAL) CBC W AUTO DIFFERENTIAL (10/18/2022 11:01 PM CDT) WBC 9.8 3.5 - 10.5 10? 3 /uL 10/18/2022 11:36 PM [facility] RBC 3.67(L) 4.30 - 5.70 10? 6 /uL 10/18/2022 11:36 PM [facility] Hemoglobin 10.8(L) 12.0 - 17.6 g/dL 10/18/2022 11:36 PM [facility] Hematocrit 32.3(L) 35.2 - 51.7 % 10/18/2022 11:36 PM [facility] MCV 88.0 80.7 - 98.3 fL 10/18/2022 11:36 PM [facility] MCH 29.4 26.7 - 34.0 pg 10/18/2022 11:36 PM [facility] MCHC 33.4 30.8 - 35.9 g/dL 10/18/2022 11:36 PM [facility] RDW-SD 45.9 36.0 - 50.0 fL 10/18/2022 11:36 PM [facility] RDW-CV 14.2 11.2 - 14.8 % 10/18/2022 11:36 PM [facility] Platelet Count 165 150 - 400 10? 3 /uL 10/18/2022 11:36 PM [facility] MPV 9.5 9.4 - 12.9 fL 10/18/2022 11:36 PM [facility] nRBC Absolute 0.00 0 10? 3 /uL 10/18/2022 11:36 PM [facility] nRBC Auto 0.0 0 /100 WBC 10/18/2022 11:36 PM [facility] Neutrophils % 72.7(H) 35.0 - 70.0 % 10/18/2022 11:36 PM [facility] Lymphocytes % 15.9(L) 20.0 - 43.0 % 10/18/2022 11:36 PM [facility] Monocytes % 5.8 5.0 - 13.0 % 10/18/2022 11:36 PM [facility] Eosinophils % 4.0 0.0 - 6.0 % 10/18/2022 11:36 PM [facility] Basophil % 0.2 0.0 - 2.0 % 10/18/2022 11:36 PM [facility] Neutrophils Absolute 7.11(H) 1.60 - 7.00 10? 3 /uL 10/18/2022 11:36 PM [facility] Lymphocyte Absolute 1.56 1.10 - 3.90 10? 3 /uL 10/18/2022 11:36 PM [facility] Monocytes Absolute 0.57 0.26 - 1.07 10? 3 /uL 10/18/2022 11:36 PM [facility] Eosinophils Absolute 0.39 0.00 - 0.47 10? 3 /uL 10/18/2022 11:36 PM [facility] Basophils Absolute 0.02 0.00 - 0.08 10? 3 /uL 10/18/2022 11:36 PM [facility] Immature Granulocytes % 1.4(H) 0.0 - 1.0 % 10/18/2022 11:36 PM [facility] Immature Granulocytes Absolute 0.14 10/18/2022 11:36 PM CDT [facility] Blood BLOOD SPECIMEN / Unknown Lab Venipuncture / Unknown 10/18/2022 11:01 PM CDT 10/18/2022 11:27 PM CDT Naseem Randolph MD LAB - HEMATOLOGY LAURA FERRO [address] [address], [place] [phone] * PHOSPHORUS BLOOD (10/18/2022 11:01 PM CDT) Phosphorus 3.2 2.8 - 5.1 mg/dL 10/18/2022 11:55 PM CDT [facility] Blood BLOOD SPECIMEN / Unknown Lab Venipuncture / Unknown 10/18/2022 11:01 PM CDT 10/18/2022 11:27 PM CDT Naseem Randolph MD LAB - CHEMISTRY [place]ELICE MILES Performing Organization Address City/[facility]/ZIP Co de Phone Number [address] [address], [place] [phone] * MAGNESIUM BLOOD (10/18/2022 11:01 PM CDT) Magnesium 1.6 1.6 - 2.6 mg/dL 10/18/2022 11:55 PM CDT [facility] Blood BLOOD SPECIMEN / Unknown Lab Venipuncture / Unknown 10/18/2022 11:01 PM CDT 10/18/2022 11:27 PM CDT Naseem Randolph MD LAB - CHEMISTRY [place]ELICE MILES [address] [address], [place] [phone] * (ABNORMAL) GLUCOSE - POINT OF CARE (10/18/2022 9:53 PM CDT) Glucose WB/POC 201(H) 70 - 115 mg/dL 10/18/2022 9:55 PM CDT [facility] Specimen Type Cap Fingerstick 2022 9:55 PM CDT [facility] Blood BLOOD SPECIMEN / Unknown 10/18/2022 9:53 PM CDT 10/18/2022 9:55 PM CDT Gregorio Khan MD LAB - POINT OF CARE ORDERABLES Performing Organization Address City/[facility]/ZIP Co de Phone Number [address] [address], [place] [phone] * (ABNORMAL) GLUCOSE - POINT OF CARE (10/18/2022 7:52 PM CDT) Glucose WB/POC 195(H) 70 - 115 mg/dL 10/18/2022 7:57 PM CDT [facility] Specimen Type Cap Fingerstick 2022 7:57 PM CDT [facility] Blood BLOOD SPECIMEN / Unknown 10/18/2022 7:52 PM CDT 10/18/2022 7:57 PM CDT Gregorio Khan MD LAB - POINT OF CARE ORDERABLES Performing Organization Address [facility]/ZIP Co de Phone Number [address] [address], [place] [phone] * (ABNORMAL) GLUCOSE - POINT OF CARE (10/18/2022 7:42 PM CDT) Glucose WB/POC 187(H) 70 - 115 mg/dL 10/18/2022 7:43 PM CDT [facility] Specimen Type Cap Fingerstick 2022 7:43 PM CDT [facility] Blood BLOOD SPECIMEN / Unknown 10/18/2022 7:42 PM CDT 10/18/2022 7:43 PM CDT Gregorio Khan MD LAB - POINT OF CARE ORDERABLES [address] [place] [address], [place] [phone] * (ABNORMAL) GLUCOSE - POINT OF CARE (10/18/2022 1:01 PM CDT) Glucose WB/POC 175(H) 70 - 115 mg/dL 10/18/2022 1:05 PM CDT [facility] Specimen Type Cap Fingerstick 2022 1:05 PM CDT [facility] Blood BLOOD SPECIMEN / Unknown 10/18/2022 1:01 PM CDT 10/18/2022 1:05 PM CDT Gregorio Khan MD LAB - POINT OF CARE ORDERABLES [facility] [address] [place] [address], [place] [phone] * (ABNORMAL) GLUCOSE - POINT OF CARE (10/18/2022 9:08 AM CDT) Glucose WB/POC 177(H) 70 - 115 mg/dL 10/18/2022 9:12 AM CDT [facility] Specimen Type Cap Fingerstick 2022 9:12 AM CDT [facility] Blood BLOOD SPECIMEN / Unknown 10/18/2022 9:08 AM CDT 10/18/2022 9:12 AM CDT Gregorio Khan MD LAB - POINT OF CARE ORDERABLES [facility] [address] [place] [address], [place] [phone] * (ABNORMAL) GLUCOSE - POINT OF CARE (10/18/2022 3:35 AM CDT) Glucose WB/POC 168(H) 70 - 115 mg/dL 10/18/2022 3:40 AM CDT [facility] Specimen Type Cap Fingerstick 2022 3:40 AM CDT [facility] Blood BLOOD SPECIMEN / Unknown 10/18/2022 3:35 AM CDT 10/18/2022 3:40 AM CDT Gregorio Khan MD LAB - POINT OF CARE ORDERABLES [facility] [address] [place] [address], [facility] [phone] * (ABNORMAL) BASIC METABOLIC PANEL (CALCIUM TOTAL) (10/18/2022 1:57 AM CDT) BUN 40(H) 7 - 26 mg/dL 10/18/2022 3:59 AM [facility] Creatinine 1.07 0.71 - 1.16 mg/dL 10/18/2022 3:59 AM [facility] Sodium 147(H) 136 - 145 mmol/L 10/18/2022 3:59 AM [facility] Potassium 4.3 3.5 - 4.5 mmol/L 10/18/2022 3:59 AM [facility] Chloride 117(H) 98 - 107 mmol/L 10/18/2022 3:59 AM [facility] CO2 23 22 - 29 mmol/L 10/18/2022 3:59 AM [facility] Glucose 190(H) 70 - 115 mg/dL 10/18/2022 3:59 AM [facility] Calcium 9.0 8.4 - 10.2 mg/dL 10/18/2022 3:59 AM [facility] Anion Gap 11 8 - 18 10/18/2022 3:59 AM [facility] BUN/Creatinine Ratio 37(H) 7 - 23 10/18/2022 3:59 AM [facility] Osmolality Calculated 319(H) 270 - 300 mOsm/kg 10/18/2022 3:59 AM [facility] eGFR by CKD-EPI 77(L) >=90 mL/min/1.7 3 m2 10/18/2022 3:59 AM [facility] Blood BLOOD SPECIMEN / Unknown Lab Venipuncture / Unknown 10/18/2022 1:57 AM CDT 10/18/2022 3:27 AM CDT Naseem Randolph MD LAB - CHEMISTRY FELICE MILES Performing Organization Address City/[facility]/ZIP Co de Phone Number [address] [address], [place] [phone] * PHOSPHORUS BLOOD (10/18/2022 1:57 AM CDT) Phosphorus 2.9 2.8 - 5.1 mg/dL 10/18/2022 3:59 AM CDT [facility] Blood BLOOD SPECIMEN / Unknown Lab Venipuncture / Unknown 10/18/2022 1:57 AM CDT 10/18/2022 3:27 AM CDT Naseem Randolph MD LAB - CHEMISTRY FELICE MILES Performing Organization Address [facility] Co de Phone Number [address] [address], [place] [phone] * MAGNESIUM BLOOD (10/18/2022 1:57 AM CDT) Magnesium 1.9 1.6 - 2.6 mg/dL 10/18/2022 3:59 AM CDT [facility] Blood BLOOD SPECIMEN / Unknown Lab Venipuncture / Unknown 10/18/2022 1:57 AM CDT 10/18/2022 3:27 AM CDT Naseem Randolph MD LAB - CHEMISTRY FELICE MILES Performing Organization Address City/[facility]/ZIP Co de Phone Number [address] [address], [place] [phone] * (ABNORMAL) CBC W AUTO DIFFERENTIAL (10/18/2022 1:55 AM CDT) WBC 9.1 3.5 - 10.5 10? 3 /uL 10/18/2022 3:33 AM CDT [facility] RBC 3.77(L) 4.30 - 5.70 10? 6 /uL 10/18/2022 3:33 AM CDT [facility] Hemoglobin 11.0(L) 12.0 - 17.6 g/dL 10/18/2022 3:33 AM [facility] Hematocrit 33.8(L) 35.2 - 51.7 % 10/18/2022 3:33 AM [facility] MCV 89.7 80.7 - 98.3 fL 10/18/2022 3:33 AM [facility] MCH 29.2 26.7 - 34.0 pg 10/18/2022 3:33 AM [facility] MCHC 32.5 30.8 - 35.9 g/dL 10/18/2022 3:33 AM [facility] RDW-SD 47.7 36.0 - 50.0 fL 10/18/2022 3:33 AM [facility] RDW-CV 14.5 11.2 - 14.8 % 10/18/2022 3:33 AM [facility] Platelet Count 182 150 - 400 10? 3 /uL 10/18/2022 3:33 AM [facility] MPV 9.7 9.4 - 12.9 fL 10/18/2022 3:33 AM [facility] nRBC Absolute 0.00 0 10? 3 /uL 10/18/2022 3:33 AM [facility] nRBC Auto 0.0 0 /100 WBC 10/18/2022 3:33 AM [facility] Neutrophils % 73.6(H) 35.0 - 70.0 % 10/18/2022 3:33 AM [facility] Lymphocytes % 15.1(L) 20.0 - 43.0 % 10/18/2022 3:33 AM [facility] Monocytes % 6.9 5.0 - 13.0 % 10/18/2022 3:33 AM [facility] Eosinophils % 2.5 0.0 - 6.0 % 10/18/2022 3:33 AM [facility] Basophil % 0.2 0.0 - 2.0 % 10/18/2022 3:33 AM [facility] Neutrophils Absolute 6.67 1.60 - 7.00 10? 3 /uL 10/18/2022 3:33 AM [facility] Lymphocyte Absolute 1.37 1.10 - 3.90 10? 3 /uL 10/18/2022 3:33 AM T [facility] Monocytes Absolute 0.63 0.26 - 1.07 10? 3 /uL 10/18/2022 3:33 AM T [facility] Eosinophils Absolute 0.23 0.00 - 0.47 10? 3 /uL 10/18/2022 3:33 AM T [facility] Basophils Absolute 0.02 0.00 - 0.08 10? 3 /uL 10/18/2022 3:33 AM [facility] Immature Granulocytes % 1.7(H) 0.0 - 1.0 % 10/18/2022 3:33 AM [facility] Immature Granulocytes Absolute 0.15 10/18/2022 3:33 AM [facility] Blood BLOOD SPECIMEN / Unknown Lab Venipuncture / Unknown 10/18/2022 1:55 AM CDT 10/18/2022 3:26 AM CDT Naseem Randolph MD LAB - HEMATOLOGY ORD ERABLES [address] [address], [facility] [phone] * (ABNORMAL) GLUCOSE - POINT OF CARE (10/18/2022 12:00 AM CDT) Glucose WB/POC 181(H) 70 - 115 mg/dL 10/18/2022 12:08 AM T [facility] Specimen Type Cap Fingerstick 2022 12:08 AM CDT [facility] Blood BLOOD SPECIMEN / Unknown 10/18/2022 12:00 AM CDT 10/18/2022 12:08 AM CDT Gregorio Khan MD LAB - POINT OF CARE ORDERABLES [address] [address], [place] [phone] * (ABNORMAL) GLUCOSE - POINT OF CARE (10/17/2022 9:42 PM CDT) Glucose WB/POC 167(H) 70 - 115 mg/dL 10/17/2022 9:42 PM CDT [facility] Specimen Type Cap Fingerstick 2022 9:42 PM CDT [facility] Blood BLOOD SPECIMEN / Unknown 10/17/2022 9:42 PM CDT 10/17/2022 9:42 PM CDT Gregorio Khan MD LAB - POINT OF CARE ORDERABLES [address] [address], [place] [phone] * (ABNORMAL) GLUCOSE - POINT OF CARE (10/17/2022 7:57 PM CDT) Glucose WB/POC 187(H) 70 - 115 mg/dL 10/17/2022 8:01 PM CDT [facility] Specimen Type Cap Fingerstick 2022 8:01 PM CDT [facility] Blood BLOOD SPECIMEN / Unknown 10/17/2022 7:57 PM CDT 10/17/2022 8:01 PM CDT Gregorio Khan MD LAB - POINT OF CARE ORDERABLES [address] [address], [place] [phone] * (ABNORMAL) GLUCOSE - POINT OF CARE (10/17/2022 6:24 PM CDT) Glucose WB/POC 191(H) 70 - 115 mg/dL 10/17/2022 6:29 PM CDT [facility] Specimen Type Cap Fingerstick 2022 6:29 PM CDT [facility] Blood BLOOD SPECIMEN / Unknown 10/17/2022 6:24 PM CDT 10/17/2022 6:29 PM CDT Gregorio Khan MD LAB - POINT OF CARE ORDERABLES [address] [address], [place] [phone] * (ABNORMAL) GLUCOSE - POINT OF CARE (10/17/2022 12:07 PM CDT) Glucose WB/POC 169(H) 70 - 115 mg/dL 10/17/2022 12:10 PM CDT [facility] Specimen Type Cap Fingerstick 2022 12:10 PM CDT [facility] Blood BLOOD SPECIMEN / Unknown 10/17/2022 12:07 PM CDT 10/17/2022 12:10 PM CDT Gregorio Khan MD LAB - POINT OF CARE ORDERABLES [address] [address], [place] [phone] * (ABNORMAL) GLUCOSE - POINT OF CARE (10/17/2022 8:29 AM CDT) Glucose WB/POC 139(H) 70 - 115 mg/dL 10/17/2022 8:33 AM CDT [facility] Specimen Type Cap Fingerstick 2022 8:33 AM CDT [facility] Blood BLOOD SPECIMEN / Unknown 10/17/2022 8:29 AM CDT 10/17/2022 8:33 AM CDT Gregorio Khan MD LAB - POINT OF CARE ORDERABLES [address] [address], [place] [phone] * GLUCOSE - POINT OF CARE (10/17/2022 4:02 AM CDT) Glucose WB/POC 104 70 - 115 mg/dL 10/17/2022 4:07 AM CDT [facility] Specimen Type Cap Fingerstick 2022 4:07 AM CDT [facility] Blood BLOOD SPECIMEN / Unknown 10/17/2022 4:02 AM CDT 10/17/2022 4:07 AM CDT Gregorio Khan MD LAB - POINT OF CARE ORDERABLES [facility] [address] [place] [address], [facility] [phone] * CT HEAD WO CONTRAST (10/17/2022 3:16 AM CDT) Anatomical Region Laterality Modality Head [...] right lateral ventricle. Similar or slightly decreased [id number] midline shift as outlined above. 3.No evidence of hemorrhagic transformation. > Dictated by Miguel Escamilla MD (residential tech). I, Sundar Devine MD have personally reviewed and interpreted this examination/study. > Interpreting Provider: Sundar Devine MD on 10/17/2022 4:50 PM Narrative 10/17/2022 4:50 PM CDT PROCEDURE: ??CT HEAD WO CONTRAST, DATE/TIME OF EXAM: ??10/17/2022 3:17 AM, LOCATION ??[facility] INDICATION: R53.1: Weakness ADDITIONAL CLINICAL INFORMATION: Ordering [...] DATE/TIME OF EXAM: 10/17/2022 3:17 AM, LOCATION [facility] INDICATION: R53.1: Weakness ADDITIONAL CLINICAL INFORMATION: Ordering [...] right lateral ventricle. Similar or slightly decreased [id number] midline shift as outlined above. 3.No evidence of hemorrhagic transformation. > Dictated by Miguel Escamilla MD (residential tech). I, Sundar Devine MD have personally reviewed and interpretedthis examination/study. > Interpreting Provider: Sundar Devine MD on 10/17/2022 4:[address] MD [address] ORDERABLES * (ABNORMAL) BASIC METABOLIC PANEL (CALCIUM TOTAL) (10/17/2022 12:44 AM CDT) BUN 55(H) 7 - 26 mg/dL 10/17/2022 1:15 AM [facility] Creatinine 1.43(H) 0.71 - 1.16 mg/dL 10/17/2022 1:15 AM [facility] Sodium 145 136 - 145 mmol/L 10/17/2022 1:15 AM CDT [facility] Potassium 4.5 3.5 - 4.5 mmol/L 10/17/2022 1:15 AM [facility] Chloride 114(H) 98 - 107 mmol/L 10/17/2022 1:15 AM [facility] CO2 23 22 - 29 mmol/L 10/17/2022 1:15 AM [facility] Glucose 127(H) 70 - 115 mg/dL 10/17/2022 1:15 AM [facility] Calcium 9.1 8.4 - 10.2 mg/dL 10/17/2022 1:15 AM [facility] Anion Gap 13 8 - 18 10/17/2022 1:15 AM [facility] BUN/Creatinine Ratio 38(H) 7 - 23 10/17/2022 1:15 AM [facility] Osmolality Calculated 317(H) 270 - 300 mOsm/kg 10/17/2022 1:15 AM [facility] eGFR by CKD-EPI 54(L) >=90 mL/min/1.7 3 m2 10/17/2022 1:15 AM [facility] Blood BLOOD SPECIMEN / Unknown Venipuncture / Unknown 10/17/2022 12:44 AM CDT 10/17/2022 12:50 AM CDT Naseem Randolph MD LAB - CHEMISTRY ORDE [facility] Organization Address City/State/ZIP Co de Phone Number [facility] [address] [place] [phone] [phone] * (ABNORMAL) CBC W AUTO DIFFERENTIAL (10/17/2022 12:44 AM CDT) WBC 9.4 3.5 - 10.5 10? 3 /uL 10/17/2022 12:55 AM [facility] RBC 4.22(L) 4.30 - 5.70 10? 6 /uL 10/17/2022 12:55 AM [facility] Hemoglobin 12.3 12.0 - 17.6 g/dL 10/17/2022 12:55 AM [facility] Hematocrit 38.2 35.2 - 51.7 % 10/17/2022 12:55 AM [facility] MCV 90.5 80.7 - 98.3 fL 10/17/2022 12:55 AM [facility] MCH 29.1 26.7 - 34.0 pg 10/17/2022 12:55 AM [facility] MCHC 32.2 30.8 - 35.9 g/dL 10/17/2022 12:55 AM [facility] RDW-SD 49.9 36.0 - 50.0 fL 10/17/2022 12:55 AM [facility] RDW-CV 14.9(H) 11.2 - 14.8 % 10/17/2022 12:55 AM [facility] Platelet Count 170 150 - 400 10? 3 /uL 10/17/2022 12:55 AM [facility] MPV 9.2(L) 9.4 - 12.9 fL 10/17/2022 12:55 AM [facility] nRBC Absolute 0.00 0 10? 3 /uL 10/17/2022 12:55 AM [facility] nRBC Auto 0.0 0 /100 WBC 10/17/2022 12:55 AM [facility] Neutrophils % 74.4(H) 35.0 - 70.0 % 10/17/2022 12:55 AM [facility] Lymphocytes % 15.4(L) 20.0 - 43.0 % 10/17/2022 12:55 AM [facility] Monocytes % 7.9 5.0 - 13.0 % 10/17/2022 12:55 AM [facility] Eosinophils % 0.2 0.0 - 6.0 % 10/17/2022 12:55 AM [facility] Basophil % 0.2 0.0 - 2.0 % 10/17/2022 12:55 AM [facility] Neutrophils Absolute 7.01(H) 1.60 - 7.00 10? 3 /uL 10/17/2022 12:55 AM [facility] Lymphocyte Absolute 1.45 1.10 - 3.90 10? 3 /uL 10/17/2022 12:55 AM [facility] Monocytes Absolute 0.74 0.26 - 1.07 10? 3 /uL 10/17/2022 12:55 AM [facility] Eosinophils Absolute 0.02 0.00 - 0.47 10? 3 /uL 10/17/2022 12:55 AM CDT [facility] Basophils Absolute 0.02 0.00 - 0.08 10? 3 /uL 10/17/2022 12:55 AM CDT [facility] Immature Granulocytes % 1.9(H) 0.0 - 1.0 % 10/17/2022 12:55 AM CDT [facility] Immature Granulocytes Absolute 0.18 10/17/2022 12:55 AM CDT [facility] Blood BLOOD SPECIMEN / Unknown Venipuncture / Unknown 10/17/2022 12:44 AM CDT 10/17/2022 12:50 AM CDT Naseem Randolph MD LAB - HEMATOLOGY ORD PURVIBLES [address] [address], [facility] [phone] * (ABNORMAL) PHOSPHORUS BLOOD (10/17/2022 12:44 AM CDT) Phosphorus 2.5(L) 2.8 - 5.1 mg/dL 10/17/2022 1:15 AM CDT [facility] Blood BLOOD SPECIMEN / Unknown Venipuncture / Unknown 10/17/2022 12:44 AM CDT 10/17/2022 12:50 AM CDT Naseem Randolph MD LAB - CHEMISTRY ORDVimal MILES [address] [address], [place] [phone] * MAGNESIUM BLOOD (10/17/2022 12:44 AM CDT) Magnesium 2.3 1.6 - 2.6 mg/dL 10/17/2022 1:15 AM CDT [facility] Blood BLOOD SPECIMEN / Unknown Venipuncture / Unknown 10/17/2022 12:44 AM CDT 10/17/2022 12:50 AM CDT Naseem Randolph MD LAB - CHEMISTRY FELICE MILES Performing Organization Address City/[facility]/ZIP Co de Phone Number [address] [address], [place] [phone] * GLUCOSE - POINT OF CARE (10/17/2022 12:06 AM CDT) Glucose WB/POC 110 70 - 115 mg/dL 10/17/2022 12:10 AM CDT [facility] Specimen Type Cap Fingerstick 2022 12:10 AM CDT [facility] Blood BLOOD SPECIMEN / Unknown 10/17/2022 12:06 AM CDT 10/17/2022 12:10 AM CDT Gregorio Khan MD LAB - POINT OF CARE ORDERABLES Performing Organization Address [facility]/ZIP Co de Phone Number [address] [address], [place] [phone] * GLUCOSE - POINT OF CARE (10/16/2022 8:46 PM CDT) Glucose WB/POC 105 70 - 115 mg/dL 10/16/2022 8:50 PM CDT [facility] Specimen Type Cap Fingerstick 2022 8:50 PM CDT [facility] Blood BLOOD SPECIMEN / Unknown 10/16/2022 8:46 PM CDT 10/16/2022 8:50 PM CDT Gregorio Khan MD LAB - POINT OF CARE ORDERABLES Performing Organization Address City/[facility]/ZIP Co de Phone Number [address] [address], [place] [phone] * EKG 12-LEAD (10/16/2022 4:41 PM CDT) Ventricular Rate 53 BPM [facility] Atrial Rate 53 BPM [facility] P-R Interval 188 ms [facility] QRS Duration ms 96 ms [facility] Q-T Interval ms 398 ms [facility] QTC Calculation (Bezet) 373 ms [facility] Calculated P [place] 9 degrees [facility] Calculated R [place] -6 degrees [facility] Calculated T [place] 86 degrees [facility] Interpretation EKG SINUS BRADYCARDIA WITH MARKED SINUS ARRYTHMIA INCOMPLETE RIGHT BUNDLE BRANCH BLOCK BORDERLINE ECG WHEN COMPARED WITH ECG OF 13-OCT-2022 08:46, PREMATURE ATRIAL COMPLEXES ARE NO LONGER PRESENT MT INTERVAL HAS DECREASED CRITERIA FOR ANTEROLATERAL INFARCT ARE NO LONGER PRESENT NONSPECIFIC T WAVE ABNORMALITY NO LONGER EVIDENT IN INFERIOR LEADS T WAVE INVERSION NO LONGER EVIDENT IN LATERAL LEADS Confirmed by JULY ??HERMAN LAYTON ([id number]) on 10/19/2022 10:38:15 PM [facility] 10/16/2022 4:41 PM CDT 10/19/2022 10:38 PM CDT Gregorio Khan MD ECG ORDERABLES Performing Organization Address City/[facility]/ZIP Co de Phone Number [facility] * (ABNORMAL) GLUCOSE - POINT OF CARE (10/16/2022 4:22 PM CDT) Glucose WB/POC 121(H) 70 - 115 mg/dL 10/16/2022 4:27 PM CDT [facility] Specimen Type Cap Fingerstick 2022 4:27 PM CDT [facility] Blood BLOOD SPECIMEN / Unknown 10/16/2022 4:22 PM CDT 10/16/2022 4:27 PM CDT Jorge Hall MD LAB - POINT OF CARE ORDERABLES [facility] [address] [place] [address], [facility] [phone] * (ABNORMAL) GLUCOSE - POINT OF CARE (10/16/2022 1:12 PM CDT) Glucose WB/POC 168(H) 70 - 115 mg/dL 10/16/2022 1:17 PM CDT [facility] Specimen Type Cap Fingerstick 2022 1:17 PM CDT [facility] Blood BLOOD SPECIMEN / Unknown 10/16/2022 1:12 PM CDT 10/16/2022 1:17 PM CDT Jorge Hall MD LAB - POINT OF CARE ORDERABLES [facility] [address] [place] [address], [facility] [phone] * XR ABDOMEN KUB PORTABLE (10/16/2022 12:54 PM CDT) Anatomical Region Laterality Modality Abdomen Radiographic Evelyn ging 10/16/2022 1:13 PM CDT Narrative 10/16/2022 5:21 PM CDT PROCEDURE: ??XR ABDOMEN KUB PORTABLE, DATE/TIME OF EXAM: ??10/16/2022 12:55 PM, LOCATION ??[facility] INDICATION: I63.9: Ischemic stroke (CMS/HCC) ADDITIONAL CLINICAL INFORMATION: Ordering Provider Reason For Exam: ??NG tube placement verification COMPARISON: Abdominal radiograph 10/13/2022 FINDINGS/IMPRESSION: *Enteric tube courses below the diaphragm with the distal tip superimposing the antropyloric region. *Mild gaseous dilation of the small bowel and colon is partially visualized, similar in appearance to prior. Report dictated by Oscar Santizo MD (residential tech). Ranjit Orourke MD have personally reviewed and interpreted this examination/study. > Interpreting Provider: Ranjit Nunez MD on 10/16/2022 5:21 PM Procedure Note Humera Nunez MD - 10/16/2022 PROCEDURE: XR ABDOMEN KUB PORTABLE, DATE/TIME OF EXAM: 10/16/2022 12:55PM, LOCATION [facility] INDICATION: I63.9: Ischemic stroke (CMS/HCC) ADDITIONAL CLINICAL INFORMATION: Ordering Provider Reason For Exam: NG tube placement verification COMPARISON: Abdominal radiograph 10/13/2022 FINDINGS/IMPRESSION: *Enteric tube courses below the diaphragm with the distal tipsuperimposing the antropyloric region. *Mild gaseous dilation of the small bowel and colon is partially visualized, similar in appearance to prior. Report dictated by Oscar Santizo MD (residential tech). I, E. Clover Nunez MD have personally reviewed and interpreted this examination/study. > Interpreting Provider: Ranjit Nunez MD on 10/16/2022 5:21 PM Jorge Hall MD DIAGNOSTIC IMAGING O RDERABLES * EKG 12-LEAD (10/16/2022 12:32 PM CDT) Ventricular Rate 58 BPM [facility] Atrial Rate 58 BPM [facility] P-R Interval 196 ms [facility] QRS Duration ms 94 ms [facility] Q-T Interval ms 388 ms [facility] QTC Calculation (Bezet) 380 ms [facility] Calculated P [place] 6 degrees [facility] Calculated R [place] -3 degrees [facility] Calculated T [place] 59 degrees [facility] Interpretation EKG SINUS BRADYCARDIA WITH PREMATURE ATRIAL COMPLEXES OTHERWISE NORMAL ECG WHEN COMPARED WITH ECG OF 13-OCT-2022 08:46, T WAVE INVERSION NO LONGER EVIDENT IN LATERAL LEADS Confirmed by JULY ??HERMAN LAYTON ([id number]) on 10/19/2022 10:37:47 PM [facility] 10/16/2022 12:3 2 PM CDT 10/19/2022 10:37 PM CDT Jorge Hall MD ECG ORDERABLES [facility] * (ABNORMAL) GLUCOSE - POINT OF CARE (10/16/2022 8:47 AM CDT) Pathologist [facility] Glucose WB/POC 137(H) 70 - 115 mg/dL 10/16/2022 8:52 AM CDT [facility] Specimen Type Cap Fingerstick 2022 8:52 AM CDT [facility] Blood BLOOD SPECIMEN / Unknown 10/16/2022 8:47 AM CDT 10/16/2022 8:52 AM CDT Jorge Hall MD LAB - POINT OF CARE ORDERABLES [facility] [address] [place] [address], [facility] [phone] * (ABNORMAL) GLUCOSE - POINT OF CARE (10/16/2022 4:23 AM CDT) Glucose WB/POC 135(H) 70 - 115 mg/dL 10/16/2022 4:28 AM CDT [facility] Specimen Type Cap Fingerstick 2022 4:28 AM CDT [facility] Blood BLOOD SPECIMEN / Unknown 10/16/2022 4:23 AM CDT 10/16/2022 4:28 AM CDT Jorge Hall MD LAB - POINT OF CARE ORDERABLES [facility] [address] [place] [address], [facility] [phone] * CT HEAD WO CONTRAST (10/16/2022 3:55 AM CDT) Anatomical Region Laterality Modality Head Computed Tomogra phy 10/16/2022 8:25 AM CDT Impressions 10/16/2022 1:21 PM CDT IMPRESSION: Motion artifact significantly limiting this study. 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 Clinical correlation and continued close follow-up are recommended. 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 Findings consistent small vessel disease in the left cerebral hemisphere. The preliminary results of this study were discussed by Dr. Cleveland with the patient's care provider, Dr. Brannon on, 16 October 2022 at 0534 hours with read back confirmation and verification. Report dictated by Romain Mckee MD, PhD (residential tech). I, Arnav Lock MD have personally reviewed and interpreted this examination/study. > Interpreting Provider: Arnav Lock MD on 10/16/2022 1:21 PM Narrative 10/16/2022 1:21 PM CDT PROCEDURE: ??CT HEAD WO CONTRAST, DATE/TIME OF EXAM: ??10/16/2022 3:55 AM, LOCATION ??[facility] INDICATION: R53.1: Weakness ADDITIONAL CLINICAL INFORMATION: Ordering Provider Reason For Exam: ??assessing cerebral edema COMPARISON: CT head without contrast from 10/14/2021. MRI brain without contrast from 10/14/2022. EXAMINATION: Computed tomography (CT) of the head without contrast TECHNIQUE: CT of the head was performed without contrast according to standard protocol. CT dose reduction technique was used, including Automated Exposure Control FINDINGS: Fracture present on multiple images significantly limiting this study. There is extensive decreased attenuation involving most of the right cerebral hemisphere consistent with evolving acute infarction in the distributions of portions of the middle and anterior cerebral arteries. There is no definite hemorrhagic transformation. Mass effect is produced with approximately 5.7 mm of midline shift right to left. There is some compression of the right lateral ventricle and effacement of the left lateral and third ventricles. There is no evidence of ventricular dilatation. Small cortical infarcts are noted in the left cerebellar hemisphere Patchy decreased attenuation is noted within the white matter of the left cerebral hemisphere likely related to small vessel disease in a patient of this age. Bone window images demonstrate no evidence of definite calvarial fracture or bone destruction When today's study is compared to a previous dated 14 October 2022 there is been further evolution of the extensive areas of infarction in the right cerebral hemisphere with greater mass effect and midline shift right to left. Procedure Note Arnav Lock MD - 10/16/2022 PROCEDURE: CT HEAD WO CONTRAST, DATE/TIME OF EXAM: 10/16/2022 3:55 AM, LOCATION [facility] INDICATION: R53.1: Weakness ADDITIONAL CLINICAL INFORMATION: Ordering Provider Reason For Exam: assessing cerebral edema COMPARISON: CT head without contrast from 10/14/2021. MRI brain without contrast from 10/14/2022. EXAMINATION: Computed tomography (CT) of the head without contrast TECHNIQUE: CT of the head was performed without contrast according to standard protocol. CT dose reduction technique was used, including Automated Exposure Control FINDINGS: Fracture present on multiple images significantly limiting this study. There is extensive decreased attenuation involving most of the right cerebral hemisphere consistent with evolving acute infarction in the distributions of portions of the middle and anterior cerebral arteries. There is no definite hemorrhagic transformation. Mass effect is produced with approximately 5.7 mm of midline shift right to left. There is some compression of the right lateral ventricle and effacement of the left lateral and third ventricles. There is no evidence of ventricular dilatation. Small cortical infarcts are noted in the left cerebellar hemispherePatchy decreased attenuation is noted within the white matter of the leftcerebral hemisphere likely related to small vessel disease in a patient of thisage. Bone window images demonstrate no evidence of definite calvarialfracture or bone destruction When today's study is compared to a previous dated 14 October 2022 there is been further evolution of the extensive areas of infarction in the right cerebral hemisphere with greater mass effect and midline shift right to left. IMPRESSION: Motion artifact significantly limiting this study. Further evolution of extensive infarction in the right cerebralhemisphere with greater mass effect and approximately 5.7 mm of midline shift rightto left, as detailed above. Clinical correlation and continued closefollow-up are recommended. 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 Findings consistent small vessel disease in the left cerebralhemisphere. The preliminary results of this study were discussed by Dr. Cleveland withthe patient's care provider, Dr. Brannon on, 16 October 2022 at 0534 hours with read back confirmation and verification. Report dictated by Romain Mckee MD, PhD (residential tech). I, Arnav Lock MD have personally reviewed and interpreted this examination/study. > Interpreting Provider: Arnav Lock MD on 10/16/2022 1:21 PM [address] MD [address] ORDERABLES * (ABNORMAL) BASIC METABOLIC PANEL (CALCIUM TOTAL) (10/16/2022 12:29 AM CDT) BUN 60(H) 7 - 26 mg/dL 10/16/2022 1:08 AM [facility] Creatinine 1.72(H) 0.71 - 1.16 mg/dL 10/16/2022 1:08 AM [facility] Sodium 143 136 - 145 mmol/L 10/16/2022 1:08 AM [facility] Potassium 4.9(H) 3.5 - 4.5 mmol/L 10/16/2022 1:08 AM [facility] Chloride 116(H) 98 - 107 mmol/L 10/16/2022 1:08 AM [facility] CO2 20(L) 22 - 29 mmol/L 10/16/2022 1:08 AM [facility] Glucose 151(H) 70 - 115 mg/dL 10/16/2022 1:08 AM [facility] Calcium 8.7 8.4 - 10.2 mg/dL 10/16/2022 1:08 AM [facility] Anion Gap 12 8 - 18 10/16/2022 1:08 AM [facility] BUN/Creatinine Ratio 35(H) 7 - 23 10/16/2022 1:08 AM [facility] Osmolality Calculated 316(H) 270 - 300 mOsm/kg 10/16/2022 1:08 AM [facility] eGFR by CKD-EPI 43(L) >=90 mL/min/1.7 3 m2 10/16/2022 1:08 AM [facility] Blood BLOOD SPECIMEN / Unknown Venipuncture / Unknown 10/16/2022 12:29 AM CDT 10/16/2022 12:38 AM T Naseem Randolph MD LAB - CHEMISTRY FELICE [facility] Organization Address City/State/ZIP Co de Phone Number [facility] [address] [place] [address], [facility] [phone] * (ABNORMAL) CBC W AUTO DIFFERENTIAL (10/16/2022 12:29 AM CDT) WBC 10.4 3.5 - 10.5 10? 3 /uL 10/16/2022 12:42 AM [facility] RBC 3.78(L) 4.30 - 5.70 10? 6 /uL 10/16/2022 12:42 AM [facility] Hemoglobin 11.0(L) 12.0 - 17.6 g/dL 10/16/2022 12:42 AM [facility] Hematocrit 33.9(L) 35.2 - 51.7 % 10/16/2022 12:42 AM [facility] MCV 89.7 80.7 - 98.3 fL 10/16/2022 12:42 AM [facility] MCH 29.1 26.7 - 34.0 pg 10/16/2022 12:42 AM [facility] MCHC 32.4 30.8 - 35.9 g/dL 10/16/2022 12:42 AM [facility] RDW-SD 50.1(H) 36.0 - 50.0 fL 10/16/2022 12:42 AM [facility] RDW-CV 15.1(H) 11.2 - 14.8 % 10/16/2022 12:42 AM [facility] Platelet Count 179 150 - 400 10? 3 /uL 10/16/2022 12:42 AM [facility] MPV 9.2(L) 9.4 - 12.9 fL 10/16/2022 12:42 AM [facility] nRBC Absolute 0.00 0 10? 3 /uL 10/16/2022 12:42 AM [facility] nRBC Auto 0.0 0 /100 WBC 10/16/2022 12:42 AM [facility] Neutrophils % 82.6(H) 35.0 - 70.0 % 10/16/2022 12:42 AM [facility] Lymphocytes % 7.8(L) 20.0 - 43.0 % 10/16/2022 12:42 AM [facility] Monocytes % 7.8 5.0 - 13.0 % 10/16/2022 12:42 AM [facility] Eosinophils % 0.0 0.0 - 6.0 % 10/16/2022 12:42 AM [facility] Basophil % 0.1 0.0 - 2.0 % 10/16/2022 12:42 AM [facility] Neutrophils Absolute 8.61(H) 1.60 - 7.00 10? 3 /uL 10/16/2022 12:42 AM [facility] Lymphocyte Absolute 0.81(L) 1.10 - 3.90 10? 3 /uL 10/16/2022 12:42 AM [facility] Monocytes Absolute 0.81 0.26 - 1.07 10? 3 /uL 10/16/2022 12:42 AM [facility] Eosinophils Absolute 0.00 0.00 - 0.47 10? 3 /uL 10/16/2022 12:42 AM CDT [facility] Basophils Absolute 0.01 0.00 - 0.08 10? 3 /uL 10/16/2022 12:42 AM CDT [facility] Immature Granulocytes % 1.7(H) 0.0 - 1.0 % 10/16/2022 12:42 AM CDT [facility] Immature Granulocytes Absolute 0.18 10/16/2022 12:42 AM CDT [facility] Blood BLOOD SPECIMEN / Unknown Venipuncture / Unknown 10/16/2022 12:29 AM CDT 10/16/2022 12:38 AM CDT Naseem Randolph MD LAB - HEMATOLOGY ORD ERABLES [address] [address], [facility] [phone] * PHOSPHORUS BLOOD (10/16/2022 12:29 AM CDT) Phosphorus 3.0 2.8 - 5.1 mg/dL 10/16/2022 1:08 AM CDT [facility] Blood BLOOD SPECIMEN / Unknown Venipuncture / Unknown 10/16/2022 12:29 AM CDT 10/16/2022 12:38 AM CDT Naseem Randolph MD LAB - CHEMISTRY ORDVimal MILES [address] [address], [facility] [phone] * (ABNORMAL) MAGNESIUM BLOOD (10/16/2022 12:29 AM CDT) Magnesium 2.7(H) 1.6 - 2.6 mg/dL 10/16/2022 1:08 AM CDT [facility] Blood BLOOD SPECIMEN / Unknown Venipuncture / Unknown 10/16/2022 12:29 AM CDT 10/16/2022 12:38 AM CDT Naseem Randolph MD LAB - CHEMISTRY [place]ES Performing Organization Address City/[facility]/ZIP Co de Phone Number [address] [address], [place] [phone] * TSH REFLEX FREE T4 (10/16/2022 12:29 AM CDT) TSH 1.008 0.350 - 4.940 uIU/mL 10/16/2022 1:26 AM CDT [facility] Blood BLOOD SPECIMEN / Unknown Venipuncture / Unknown 10/16/2022 12:29 AM CDT 10/16/2022 12:38 AM CDT Jorge Hall MD LAB - CHEMISTRY [place] Performing Organization Address City/[facility]/ZIP Co de Phone Number [address] [address], [place] [phone] * (ABNORMAL) GLUCOSE - POINT OF CARE (10/16/2022 12:14 AM CDT) Glucose WB/POC 142(H) 70 - 115 mg/dL 10/16/2022 12:19 AM CDT [facility] Specimen Type Cap Fingerstick 2022 12:19 AM CDT [facility] Blood BLOOD SPECIMEN / Unknown 10/16/2022 12:14 AM CDT 10/16/2022 12:19 AM CDT Jorge Hall MD LAB - POINT OF CARE ORDERABLES [address] [address], [place] [phone] * (ABNORMAL) GLUCOSE - POINT OF CARE (10/15/2022 9:10 PM CDT) Glucose WB/POC 155(H) 70 - 115 mg/dL 10/15/2022 9:15 PM CDT [facility] Specimen Type Cap Fingerstick 2022 9:15 PM CDT [facility] Blood BLOOD SPECIMEN / Unknown 10/15/2022 9:10 PM CDT 10/15/2022 9:15 PM CDT Narrative Authorizing Provider Result Lorraine Hall MD LAB - POINT OF CARE ORDERABLES [facility] [address] [place] [address], [place] [phone] * (ABNORMAL) GLUCOSE - POINT OF CARE (10/15/2022 4:26 PM CDT) Glucose WB/POC 161(H) 70 - 115 mg/dL 10/15/2022 4:27 PM CDT [facility] Specimen Type Cap Fingerstick 2022 4:27 PM CDT [facility] Blood BLOOD SPECIMEN / Unknown 10/15/2022 4:26 PM CDT 10/15/2022 4:27 PM CDT Narrative Authorizing Provider Result Lorraine Hall MD LAB - POINT OF CARE ORDERABLES Performing Organization Address City/[facility]/ZIP Co de Phone Number [facility] [address] [place] [phone], [place] [phone] * (ABNORMAL) GLUCOSE - POINT OF CARE (10/15/2022 12:08 PM CDT) Glucose WB/POC 164(H) 70 - 115 mg/dL 10/15/2022 12:09 PM CDT [facility] Specimen Type Cap Fingerstick 2022 12:09 PM CDT [facility] Blood BLOOD SPECIMEN / Unknown 10/15/2022 12:08 PM CDT 10/15/2022 12:09 PM CDT Narrative Authorizing Provider Result Lorraine Hall MD LAB - POINT OF CARE ORDERABLES [facility] [address] [place] [address], [place] [phone] * (ABNORMAL) GLUCOSE - POINT OF CARE (10/15/2022 8:11 AM CDT) Glucose WB/POC 245(H) 70 - 115 mg/dL 10/15/2022 8:12 AM CDT [facility] Specimen Type Cap Fingerstick 2022 8:12 AM CDT [facility] Blood BLOOD SPECIMEN / Unknown 10/15/2022 8:11 AM CDT 10/15/2022 8:12 AM CDT Jorge Hall MD LAB - POINT OF CARE ORDERABLES [address] [address], [place] [phone] * (ABNORMAL) GLUCOSE - POINT OF CARE (10/15/2022 4:13 AM CDT) Glucose WB/POC 236(H) 70 - 115 mg/dL 10/15/2022 4:19 AM CDT [facility] Specimen Type Cap Fingerstick 2022 4:19 AM CDT [facility] Blood BLOOD SPECIMEN / Unknown 10/15/2022 4:13 AM CDT 10/15/2022 4:19 AM CDT Jorge Hall MD LAB - POINT OF CARE ORDERABLES Performing Organization Address City/[facility]/ZIP Co de Phone Number [address] [address], [place] [phone] * (ABNORMAL) GLUCOSE - POINT OF CARE (10/14/2022 11:59 PM CDT) Glucose WB/POC 225(H) 70 - 115 mg/dL 10/15/2022 12:03 AM CDT [facility] Specimen Type Venous 10/15/2022 12:03 AM CDT [facility] Blood BLOOD SPECIMEN / Unknown 10/14/2022 11:59 PM CDT 10/15/2022 12:03 AM CDT Jorge Hall MD LAB - POINT OF CARE ORDERABLES [facility] [address] [place] [address], [facility] [phone] * (ABNORMAL) BASIC METABOLIC PANEL (CALCIUM TOTAL) (10/14/2022 11:57 PM CDT) BUN 63(H) 7 - 26 mg/dL 10/15/2022 12:29 AM [facility] Creatinine 2.16(H) 0.71 - 1.16 mg/dL 10/15/2022 12:29 AM [facility] Sodium 138 136 - 145 mmol/L 10/15/2022 12:29 AM [facility] Potassium 4.8(H) 3.5 - 4.5 mmol/L 10/15/2022 12:29 AM [facility] Chloride 112(H) 98 - 107 mmol/L 10/15/2022 12:29 AM [facility] CO2 18(L) 22 - 29 mmol/L 10/15/2022 12:29 AM [facility] Glucose 237(H) 70 - 115 mg/dL 10/15/2022 12:29 AM [facility] Calcium 8.8 8.4 - 10.2 mg/dL 10/15/2022 12:29 AM [facility] Anion Gap 13 8 - 18 10/15/2022 12:29 AM [facility] BUN/Creatinine Ratio 29(H) 7 - 23 10/15/2022 12:29 AM [facility] Osmolality Calculated 312(H) 270 - 300 mOsm/kg 10/15/2022 12:29 AM [facility] eGFR by CKD-EPI 33(L) >=90 mL/min/1.7 3 m2 10/15/2022 12:29 AM [facility] Blood BLOOD SPECIMEN / Unknown Venipuncture / Unknown 10/14/2022 11:57 PM CDT 10/15/2022 12:01 AM CDT Naseem Randolph MD LAB - CHEMISTRY FELICE MILES [facility] [address] [place] [address], [facility] [phone] * (ABNORMAL) CBC W AUTO DIFFERENTIAL (10/14/2022 11:57 PM T) WBC 10.5 3.5 - 10.5 10? 3 /uL 10/15/2022 12:08 AM [facility] RBC 3.72(L) 4.30 - 5.70 10? 6 /uL 10/15/2022 12:08 AM [facility] Hemoglobin 10.9(L) 12.0 - 17.6 g/dL 10/15/2022 12:08 AM [facility] Hematocrit 33.2(L) 35.2 - 51.7 % 10/15/2022 12:08 AM [facility] MCV 89.2 80.7 - 98.3 fL 10/15/2022 12:08 AM [facility] MCH 29.3 26.7 - 34.0 pg 10/15/2022 12:08 AM [facility] MCHC 32.8 30.8 - 35.9 g/dL 10/15/2022 12:08 AM [facility] RDW-SD 50.9(H) 36.0 - 50.0 fL 10/15/2022 12:08 AM [facility] RDW-CV 15.4(H) 11.2 - 14.8 % 10/15/2022 12:08 AM [facility] Platelet Count 174 150 - 400 10? 3 /uL 10/15/2022 12:08 AM [facility] MPV 9.2(L) 9.4 - 12.9 fL 10/15/2022 12:08 AM [facility] nRBC Absolute 0.00 0 10? 3 /uL 10/15/2022 12:08 AM [facility] nRBC Auto 0.0 0 /100 WBC 10/15/2022 12:08 AM [facility] Neutrophils % 89.0(H) 35.0 - 70.0 % 10/15/2022 12:08 AM [facility] Lymphocytes % 5.3(L) 20.0 - 43.0 % 10/15/2022 12:08 AM [facility] Monocytes % 4.4(L) 5.0 - 13.0 % 10/15/2022 12:08 AM [facility] Eosinophils % 0.0 0.0 - 6.0 % 10/15/2022 12:08 AM [facility] Basophil % 0.1 0.0 - 2.0 % 10/15/2022 12:08 AM [facility] Neutrophils Absolute 9.38(H) 1.60 - 7.00 10? 3 /uL 10/15/2022 12:08 AM [facility] Lymphocyte Absolute 0.56(L) 1.10 - 3.90 10? 3 /uL 10/15/2022 12:08 AM [facility] Monocytes Absolute 0.46 0.26 - 1.07 10? 3 /uL 10/15/2022 12:08 AM [facility] Eosinophils Absolute 0.00 0.00 - 0.47 10? 3 /uL 10/15/2022 12:08 AM [facility] Basophils Absolute 0.01 0.00 - 0.08 10? 3 /uL 10/15/2022 12:08 AM [facility] Immature Granulocytes % 1.2(H) 0.0 - 1.0 % 10/15/2022 12:08 AM [facility] Immature Granulocytes Absolute 0.13 10/15/2022 12:08 AM [facility] Blood BLOOD SPECIMEN / Unknown Venipuncture / Unknown 10/14/2022 11:57 PM CDT 10/15/2022 12:01 AM CDT Naseem Randolph MD LAB - HEMATOLOGY ORD ERABLES [facility] [address] [place] [address], [facility] [phone] * PHOSPHORUS BLOOD (10/14/2022 11:57 PM CDT) [facility] Signature Phosphorus 3.7 2.8 - 5.1 mg/dL 10/15/2022 12:29 AM CDT [facility] Blood BLOOD SPECIMEN / Unknown Venipuncture / Unknown 10/14/2022 11:57 PM CDT 10/15/2022 12:01 AM CDT Naseem Randolph MD LAB - CHEMISTRY FELICE MILES Performing Organization Address City/[facility]/ZIP Co de Phone Number [address] [address], [place] [phone] * MAGNESIUM BLOOD (10/14/2022 11:57 PM CDT) Pathologist [facility] Magnesium 2.6 1.6 - 2.6 mg/dL 10/15/2022 12:29 AM CDT [facility] Blood BLOOD SPECIMEN / Unknown Venipuncture / Unknown 10/14/2022 11:57 PM CDT 10/15/2022 12:01 AM CDT Naseem Randolph MD LAB - CHEMISTRY FELICE MILES Performing Organization Address [facility]/ZIP Co de Phone Number [address] [address], [place] [phone] * (ABNORMAL) GLUCOSE - POINT OF CARE (10/14/2022 8:25 PM CDT) [facility] Glucose WB/POC 226(H) 70 - 115 mg/dL 10/14/2022 8:30 PM CDT [facility] Specimen Type Cap Fingerstick 2022 8:30 PM CDT [facility] Blood BLOOD SPECIMEN / Unknown 10/14/2022 8:25 PM CDT 10/14/2022 8:30 PM CDT Jorge Hall MD LAB - POINT OF CARE ORDERABLES Performing Organization Address City/[facility]/ZIP Co de Phone Number [address] [address], [place] [phone] * ECHO COMPLETE W CONTRAST W BUBBLE STUDY (10/14/2022 4:41 PM CDT) BSA [id number] m2 SSM CV FUJ I PACS LV [...] avg E/e' ratio 10.73 SS M CV FUJI PACS MV A pk eden 96.361 cm/s SSM CV F UJI PACS MV E A ratio 0.67 SSM CV FUJI PACS MV E' lateral eden 6.179 cm/s SS M CV FUJI PACS MV E' septal eden 5.912 cm/s SSM CV FUJI PACS MV E/e' septal 10.963 SSM C V FUJI PACS MV E/e' lateral 10.487 SSM CV FUJI PACS LVOT pk eden 1.38 m/s SSM CV F UJI PACS LVOT mn eden 0.91 m/s SSM CV F UJI PACS LVOT mn grad 3.8 mmHg SSM CV FUJI PACS LVOT Cardiac Output 7.317 l/min SSM CV FUJI PACS RVOT VTI 18.587 cm SSM CV FUJ I PACS TV S' eden 15.957 SSM CV FUJ I PACS RVOT pk eden 0.83 m/s SSM CV F UJI PACS AV mn grad 5 mmHg SSM CV FU JI PACS AV pk grad 10 mmHg SSM CV FU JI PACS AV mn eden 1.06 m/s SSM CV FUJ I PACS AV pk eden 1.58 m/s SSM CV FUJ I PACS AV VTI 38.896 cm SSM CV FUJ I PACS LVOT pk grad 7.64 mmHg SSM CV FUJI PACS LVOT VTI 31.208 cm SSM CV FUJ I PACS AV area planimetry 3.63 cm2 SSM CV FUJI PACS AV area index 1.5 cm2/m2 SSM CV FUJI PACS AV area cont VTI 3.6 cm2 SSM CV FUJI PACS AV area pk eden 3.9 cm2 SSM C V FUJI PACS AV Doppler eden index pk eden 0.87 SSM CV FUJI PACS PV mn grad 3 mmHg SSM CV FU JI PACS PV pk eden 117.531 cm/s SSM CV FUJ I PACS PV pk grad 6 mmHg [...] BP A-L 59.29 SSM CV FUJI PACS [id number] 8.474 cm SSM CV FUJ I PACS [id number] 8.858 cm SSM CV FUJ I PACS [...] interatrial septum shunt present viewable with agitatedsaline. Naseem Randolph MD ECHO CUPID * (ABNORMAL) GLUCOSE - POINT OF CARE (10/14/2022 4:06 PM CDT) Glucose WB/POC 254(H) 70 - 115 mg/dL 10/14/2022 4:07 PM CDT [facility] Specimen Type Cap Fingerstick 2022 4:07 PM CDT [facility] Blood BLOOD SPECIMEN / Unknown 10/14/2022 4:06 PM CDT 10/14/2022 4:07 PM CDT Jorge Hall MD LAB - POINT OF CARE ORDERABLES Performing Organization Address City/[facility]/ZIP Co de Phone Number [address] [address], [place] [phone] * (ABNORMAL) GLUCOSE - POINT OF CARE (10/14/2022 12:39 PM CDT) Glucose WB/POC 244(H) 70 - 115 mg/dL 10/14/2022 12:44 PM CDT [facility] Specimen Type Cap Fingerstick 2022 12:44 PM CDT [facility] Blood BLOOD SPECIMEN / Unknown 10/14/2022 12:39 PM CDT 10/14/2022 12:44 PM CDT Jorge Hall MD LAB - POINT OF CARE ORDERABLES Performing Organization Address City/[facility]/ZIP Co de Phone Number [address] [address], [place] [phone] * CT HEAD WO CONTRAST (10/14/2022 10:35 AM CDT) Anatomical Region Laterality Modality Head Computed Tomogra phy 10/14/2022 4:18 PM CDT Impressions 10/14/2022 4:40 PM CDT IMPRESSION: 1. Redemonstration of large confluent evolving acute infarction in the right MCA territory and right SHEA territory involving most of the right cerebral hemisphere with local mass effect. No significant midline shift or evidence of herniation. No large hematoma however minimal petechial hemorrhages cannot be excluded. > Interpreting Provider: Re Sage MD on 10/14/2022 4:40 PM Narrative 10/14/2022 4:40 PM CDT PROCEDURE: ??CT HEAD WO CONTRAST DATE/TIME OF EXAM: ??10/14/2022 10:36 AM CLINICAL INFORMATION: None relevant/not provided if blank. Indication: R53.1: Weakness Additional History: COMPARISON: MRI brain 10/14/2022, CT head 10/13/2022 TECHNIQUE: Noncontrast CT brain was performed utilizing standard protocol. CT dose reduction technique was used, including Automated Exposure Control. FINDINGS: Interval increase in the confluent hypodensity involving the right frontal parietal and temporal lobes right MCA territory and also in the right SHEA territory consistent with known acute evolving infarct. There is localized mass effect with effacement of the sulci. No significant midline shift. Chronic infarct in the right occipital lobe. Previously noted minimal petechial hemorrhages on MRI are not conspicuous on this study could be secondary to technique. Minimal mass effect on the right lateral ventricle. Mild interval decrease in the caliber of right lateral ventricle compared to the prior study. Mild interval decrease in the caliber of ventricles compared to prior study could be secondary to edema. For example third ventricle previously measured 8 mm now measures about 6 mm. Basilar cisterns are patent. No evidence of transtentorial or tonsillar herniation. 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 Otherwise no acute osseous abnormality. Bilateral cataract replacement. Procedure Note Re Sage MD - 10/14/2022 PROCEDURE: CT HEAD WO CONTRAST DATE/TIME OF EXAM: 10/14/2022 10:36 AM CLINICAL INFORMATION: None relevant/not provided if blank. Indication: R53.1: Weakness Additional History: COMPARISON: MRI brain 10/14/2022, CT head 10/13/2022 TECHNIQUE: Noncontrast CT brain was performed utilizing standard protocol. CT dose reduction technique was used, including Automated ExposureControl. FINDINGS: Interval increase in the confluent hypodensity involving the rightfrontal parietal and temporal lobes right MCA territory and also in the rightACA territory consistent with known acute evolving infarct. There islocalized mass effect with effacement of the sulci. No significant midline shift. Chronic infarct in the right occipital lobe. Previously noted minimal petechial hemorrhages on MRI are not conspicuous on this study could be secondary to technique. Minimal mass effect on the right lateral ventricle. Mild intervaldecrease in the caliber of right lateral ventricle compared to the prior study.Mild interval decrease in the caliber of ventricles compared to prior study could be secondary to edema. For example third ventricle previously measured 8 mm now measures about 6 mm. Basilar cisterns are patent. No evidence of transtentorial or tonsillar herniation. 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 Otherwise no acute osseous abnormality. Bilateral cataract replacement. IMPRESSION: 1. Redemonstration of large confluent evolving acute infarction in the right MCA territory and right SHEA territory involving most of the right cerebral hemisphere with local mass effect. No significant midline shiftor evidence of herniation. No large hematoma however minimal petechial hemorrhages cannot be excluded. > Interpreting Provider: Re Sage MD on 10/14/2022 4:40 PM [address] MD [address] ORDERABLES * (ABNORMAL) GLUCOSE - POINT OF CARE (10/14/2022 8:10 AM CDT) Glucose WB/POC 217(H) 70 - 115 mg/dL 10/14/2022 8:10 AM CDT [facility] Specimen Type Cap Fingerstick 2022 8:10 AM CDT [facility] Blood BLOOD SPECIMEN / Unknown 10/14/2022 8:10 AM CDT 10/14/2022 8:10 AM CDT Jorge Hall MD LAB - POINT OF CARE ORDERABLES [facility] [address] [place] [address], [facility] [phone] * (ABNORMAL) GLUCOSE - POINT OF CARE (10/14/2022 3:02 AM CDT) [facility] Glucose WB/POC 201(H) 70 - 115 mg/dL 10/14/2022 3:02 AM [facility] Specimen Type Cap Fingerstick 2022 3:02 AM [facility] Blood BLOOD SPECIMEN / Unknown 10/14/2022 3:02 AM CDT 10/14/2022 3:02 AM CDT Jorge Hall MD LAB - POINT OF CARE ORDERABLES [facility] [address] [place] [address], [facility] [phone] * (ABNORMAL) BASIC METABOLIC PANEL (CALCIUM TOTAL) (10/14/2022 1:18 AM CDT) [facility] BUN 52(H) 7 - 26 mg/dL 10/14/2022 1:58 AM [facility] Creatinine 2.04(H) 0.71 - 1.16 mg/dL 10/14/2022 1:58 AM [facility] Sodium 137 136 - 145 mmol/L 10/14/2022 1:58 AM [facility] Potassium 5.2(H) 3.5 - 4.5 mmol/L 10/14/2022 1:58 AM [facility] Chloride 114(H) 98 - 107 mmol/L 10/14/2022 1:58 AM [facility] CO2 16(L) 22 - 29 mmol/L 10/14/2022 1:58 AM [facility] Glucose 198(H) 70 - 115 mg/dL 10/14/2022 1:58 AM [facility] Calcium 8.8 8.4 - 10.2 mg/dL 10/14/2022 1:58 AM [facility] Anion Gap 12 8 - 18 10/14/2022 1:58 AM [facility] BUN/Creatinine Ratio 25(H) 7 - 23 10/14/2022 1:58 AM [facility] Osmolality Calculated 304(H) 270 - 300 mOsm/kg 10/14/2022 1:58 AM [facility] eGFR by CKD-EPI 35(L) >=90 mL/min/1.7 3 m2 10/14/2022 1:58 AM [facility] Blood BLOOD SPECIMEN / Unknown Venipuncture / Unknown 10/14/2022 1:18 AM CDT 10/14/2022 1:27 AM T Naseem Randolph MD LAB - CHEMISTRY ORDE [facility] Organization Address City/State/ZIP Co de Phone Number [facility] [address] [place] [phone], [facility] [phone] * (ABNORMAL) CBC W AUTO DIFFERENTIAL (10/14/2022 1:18 AM T) WBC 11.5(H) 3.5 - 10.5 10? 3 /uL 10/14/2022 1:38 AM [facility] RBC 3.86(L) 4.30 - 5.70 10? 6 /uL 10/14/2022 1:38 AM [facility] Hemoglobin 11.3(L) 12.0 - 17.6 g/dL 10/14/2022 1:38 AM [facility] Hematocrit 35.0(L) 35.2 - 51.7 % 10/14/2022 1:38 AM [facility] MCV 90.7 80.7 - 98.3 fL 10/14/2022 1:38 AM [facility] MCH 29.3 26.7 - 34.0 pg 10/14/2022 1:38 AM [facility] MCHC 32.3 30.8 - 35.9 g/dL 10/14/2022 1:38 AM [facility] RDW-SD 51.5(H) 36.0 - 50.0 fL 10/14/2022 1:38 AM [facility] RDW-CV 15.5(H) 11.2 - 14.8 % 10/14/2022 1:38 AM [facility] Platelet Count 174 150 - 400 10? 3 /uL 10/14/2022 1:38 AM [facility] MPV 9.4 9.4 - 12.9 fL 10/14/2022 1:38 AM [facility] nRBC Absolute 0.00 0 10? 3 /uL 10/14/2022 1:38 AM [facility] nRBC Auto 0.0 0 /100 WBC 10/14/2022 1:38 AM [facility] Neutrophils % 90.1(H) 35.0 - 70.0 % 10/14/2022 1:38 AM [facility] Lymphocytes % 5.0(L) 20.0 - 43.0 % 10/14/2022 1:38 AM [facility] Monocytes % 3.2(L) 5.0 - 13.0 % 10/14/2022 1:38 AM [facility] Eosinophils % 0.0 0.0 - 6.0 % 10/14/2022 1:38 AM [facility] Basophil % 0.1 0.0 - 2.0 % 10/14/2022 1:38 AM [facility] Neutrophils Absolute 10.38(H) 1.60 - 7.00 10? 3 /uL 10/14/2022 1:38 AM [facility] Lymphocyte Absolute 0.57(L) 1.10 - 3.90 10? 3 /uL 10/14/2022 1:38 AM [facility] Monocytes Absolute 0.37 0.26 - 1.07 10? 3 /uL 10/14/2022 1:38 AM [facility] Eosinophils Absolute 0.00 0.00 - 0.47 10? 3 /uL 10/14/2022 1:38 AM [facility] Basophils Absolute 0.01 0.00 - 0.08 10? 3 /uL 10/14/2022 1:38 AM [facility] Immature Granulocytes % 1.6(H) 0.0 - 1.0 % 10/14/2022 1:38 AM [facility] Immature Granulocytes Absolute 0.18 10/14/2022 1:38 AM CDT [facility] Blood BLOOD SPECIMEN / Unknown Venipuncture / Unknown 10/14/2022 1:18 AM CDT 10/14/2022 1:27 AM CDT Naseem Randolph MD LAB - HEMATOLOGY ORD PILLO Performing Organization Address City/[facility]/ZIP Co de Phone Number [address] [address], [facility] [phone] * PHOSPHORUS BLOOD (10/14/2022 1:18 AM CDT) Phosphorus 4.6 2.8 - 5.1 mg/dL 10/14/2022 1:57 AM CDT [facility] Blood BLOOD SPECIMEN / Unknown Venipuncture / Unknown 10/14/2022 1:18 AM CDT 10/14/2022 1:27 AM CDT Naseem Randolph MD LAB - CHEMISTRY FELICE MILES Performing Organization Address City/[facility]/ZIP Co de Phone Number [address] [address], [facility] [phone] * (ABNORMAL) MAGNESIUM BLOOD (10/14/2022 1:18 AM CDT) Magnesium 2.7(H) 1.6 - 2.6 mg/dL 10/14/2022 1:57 AM CDT [facility] Blood BLOOD SPECIMEN / Unknown Venipuncture / Unknown 10/14/2022 1:18 AM CDT 10/14/2022 1:27 AM CDT Naseem Randolph MD LAB - CHEMISTRY FELICE MILES Performing Organization Address City/[facility]/ZIP Co de Phone Number [address] [address], [facility] [phone] * (ABNORMAL) TRIGLYCERIDES BLOOD (10/14/2022 1:18 AM CDT) Triglycerides 200(H) <150 mg/dL 10/14/2022 1:57 AM CDT [facility] Comment: ATP III Classification of Triglycerides: ?<150 mg/dL: ??Normal ? 150 - 199 mg/dL: ??Borderline High ? 200 - 400 mg/dL: ??High ?>500 mg/dL: ??Very High Blood BLOOD SPECIMEN / Unknown Venipuncture / Unknown 10/14/2022 1:18 AM CDT 10/14/2022 1:27 AM CDT Jorge Hall MD LAB - CHEMISTRY FELICE MILES Performing Organization Address City/[facility]/ZIP Co de Phone Number [facility] [address] [place] [address], [place] [phone] * (ABNORMAL) GLUCOSE - POINT OF CARE (10/14/2022 12:27 AM CDT) Glucose WB/POC 177(H) 70 - 115 mg/dL 10/14/2022 12:28 AM CDT [facility] Specimen Type Cap Fingerstick 2022 12:28 AM CDT [facility] Blood BLOOD SPECIMEN / Unknown 10/14/2022 12:27 AM CDT 10/14/2022 12:28 AM CDT Jorge Hall MD LAB - POINT OF CARE ORDERABLES Performing Organization Address [facility]/ZIP Co de Phone Number [facility] [address] [place] [phone], [place] [phone] * MRI BRAIN WO CONTRAST (10/14/2022 12:00 AM CDT) Anatomical Region Laterality Modality Head Magnetic [...] verification. Report dictated by Miguel Escamilla MD (residential tech) ISundar MD have personally reviewed and interpreted this examination/study. > Interpreting Provider: Sundar Devine MD on 10/14/2022 1:12 PM Narrative 10/14/2022 1:12 PM CDT PROCEDURE: ??MRI BRAIN WO CONTRAST, DATE/TIME OF EXAM: ??10/14/2022 12:00 AM, LOCATION ??[facility] INDICATION: R53.1: Weakness ADDITIONAL CLINICAL INFORMATION: Ordering [...] CONTRAST, DATE/TIME OF EXAM: 10/14/2022 12:00AM, LOCATION [facility] INDICATION: R53.1: Weakness ADDITIONAL CLINICAL INFORMATION: Ordering [...] verification. Report dictated by Miguel Escamilla MD (residential tech) Sundar Orourke MD have personally reviewed and interpretedthis examination/study. > Interpreting Provider: Sundar Devine MD on 10/14/2022 1:12 PM Naseem Randolph MD MR ORDERABLES * XR ABDOMEN KUB PORTABLE (10/13/2022 10:23 PM CDT) Anatomical Region Laterality Modality Abdomen Radiographic Evelyn ging 10/14/2022 7:04 AM CDT Narrative 10/14/2022 7:05 AM CDT PROCEDURE: ??XR ABDOMEN KUB PORTABLE, DATE/TIME OF EXAM: ??10/13/2022 10:23 PM, LOCATION ??[facility] INDICATION: R13.10: Dysphagia, unspecified type ADDITIONAL CLINICAL INFORMATION: Ordering Provider Reason For Exam: ??OG tube placement COMPARISON: Abdominal radiograph 10/13/2022 at 10:52 AM FINDINGS/IMPRESSION: Enteric tube courses below the diaphragm with the distal tip superimposing the gastric body. Partially imaged colonic gaseous distention, increased from the prior exam. Report dictated by Oscar Santizo MD (residential tech). CEDRIC Orourke MD have personally reviewed and interpreted this examination/study. > Interpreting Provider: CEDRIC FLORES MD on 10/14/2022 7:05 AM Procedure Note Cedric Flores MD - 10/14/2022 PROCEDURE: XR ABDOMEN KUB PORTABLE, DATE/TIME OF EXAM: 10/13/2022 10:23PM, LOCATION [facility] INDICATION: R13.10: Dysphagia, unspecified type ADDITIONAL CLINICAL INFORMATION: Ordering Provider Reason For Exam: OG tube placement COMPARISON: Abdominal radiograph 10/13/2022 at 10:52 AM FINDINGS/IMPRESSION: Enteric tube courses below the diaphragm with the distal tipsuperimposing the gastric body. Partially imaged colonic gaseous distention, increased from the priorexam. Report dictated by Oscar Santizo MD (residential tech). I, CEDRIC FLORES MD have personally reviewed and interpreted this examination/study. > Interpreting Provider: CEDRIC FLORES MD on 10/14/2022 7:05 AM Jorge Hall MD DIAGNOSTIC IMAGING O RDERABLES * CT HEAD NON CONTRAST (10/13/2022 8:29 PM CDT) Anatomical Region Laterality Modality Head Computed Tomogra phy 10/13/2022 8:51 PM CDT Impressions 10/13/2022 9:09 PM CDT IMPRESSION: 1.Further increased conspicuity of large areas of hypoattenuation with loss of goldman-white differentiation involving the right frontal, parietal, and temporal lobes in addition to the right insula, which is consistent with an evolving large acute infarct corresponding to the right middle cerebral artery (MCA) vascular territory. 2.Further increased conspicuity of a moderately-size area of hypoattenuation with loss of goldman-white differentiation along the parasagittal right frontal lobe, consistent with an evolving large acute infarct corresponding to the right anterior cerebral artery (SHEA) vascular territory. 3.No evidence of hemorrhagic conversion, significant midline shift, brain herniation, or evidence of hydrocephalus. 4.Please refer to recently reported head CTs 10/12/2022 and 10/12/2022 for description of additional chronic findings. Results of this exam were verbally discussed by Dr. Zelda Willams with Dr. Brannon on 10/13/2022 at 9:02 PM for a Critical Stroke Protocol with readback confirmation and verification. The images were reviewed by attending physician Dr. Zelda Willams prior to this communication. > Interpreting Provider: Zelda Willams MD, PhD on 10/13/2022 9:09 PM Narrative 10/13/2022 9:09 PM CDT EXAM: CT HEAD WO CONTRAST, DATE/TIME OF EXAM: 10/13/2022 8:29 PM, LOCATION: [facility] HISTORY: R53.1: Weakness ADDITIONAL CLINICAL INFORMATION: Ordering Provider Reason For Exam: ??Post tPa imaging EXAMINATION: CT scan of the head without intravenous contrast TECHNIQUE: CT of the head was performed without intravenous contrast according to standard protocol. CT dose reduction technique was used, including Automated Exposure Control. COMPARISON: Head CTs 10/13/2022 at 1:07 AM and 10/12/2022. FINDINGS: See impression. Procedure Note Zelda Willams MD - 10/13/2022 EXAM: CT HEAD WO CONTRAST, DATE/TIME OF EXAM: 10/13/2022 8:29 PM, LOCATION: [facility] HISTORY: R53.1: Weakness ADDITIONAL CLINICAL INFORMATION: Ordering Provider Reason For Exam: Post tPa imaging EXAMINATION: CT scan of the head without intravenous contrast TECHNIQUE: CT of the head was performed without intravenous contrast according to standard protocol. CT dose reduction technique was used, including Automated Exposure Control. COMPARISON: Head CTs 10/13/2022 at 1:07 AM and 10/12/2022. FINDINGS: See impression. IMPRESSION: 1.Further increased conspicuity of large areas of hypoattenuation withloss of goldman-white differentiation involving the right frontal, parietal, and temporal lobes in addition to the right insula, which is consistent withan evolving large acute infarct corresponding to the right middle cerebral artery (MCA) vascular territory. 2.Further increased conspicuity of a moderately-size area of hypoattenuation with loss of goldman-white differentiation along the parasagittal right frontal lobe, consistent with an evolving large acute infarct corresponding to the right anterior cerebral artery (SHEA)vascular territory. 3.No evidence of hemorrhagic conversion, significant midline shift,brain herniation, or evidence of hydrocephalus. 4.Please refer to recently reported head CTs 10/12/2022 and 10/12/2022 for description of additional chronic findings. Results of this exam were verbally discussed by Dr. Zelda Willams with Dr. Brannon on 10/13/2022 at 9:02 PM for a Critical Stroke Protocol with readback confirmation and verification. The images were reviewed by attending physician Dr. Zelda Willams prior to this communication. > Interpreting Provider: Zelda Willams MD, PhD on 10/13/2022 9:09 PM Naseem Randolph MD CT ORDERABLES * (ABNORMAL) GLUCOSE - POINT OF CARE (10/13/2022 8:02 PM CDT) Glucose WB/POC 204(H) 70 - 115 mg/dL 10/13/2022 8:03 PM CDT [facility] Specimen Type Cap Fingerstick 2022 8:03 PM CDT [facility] Blood BLOOD SPECIMEN / Unknown 10/13/2022 8:02 PM CDT 10/13/2022 8:03 PM CDT Jorge Hall MD LAB - POINT OF CARE ORDERABLES [address] [address], [place] [phone] * (ABNORMAL) GLUCOSE - POINT OF CARE (10/13/2022 3:47 PM CDT) Glucose WB/POC 218(H) 70 - 115 mg/dL 10/13/2022 3:52 PM CDT [facility] Specimen Type Cap Fingerstick 2022 3:52 PM CDT [facility] Blood BLOOD SPECIMEN / Unknown 10/13/2022 3:47 PM CDT 10/13/2022 3:52 PM CDT Jorge Hall MD LAB - POINT OF CARE ORDERABLES [address] [address], [place] [phone] * CARDIAC EKG ORDER (10/13/2022 3:12 PM CDT) Narrative 10/13/2022 3:12 PM CDT Ordered by an unspecified provider. Scanned Document CARDIAC SERVICES ORD ERABLES * (ABNORMAL) TROPONIN-I HIGH SENSITIVE (10/13/2022 3:07 PM CDT) Troponin I High Sensitive 60(H) <=35 ng/L 10/13/2022 3:49 PM CDT [facility] Blood BLOOD SPECIMEN / Unknown Venipuncture / Unknown 10/13/2022 3:07 PM CDT 10/13/2022 3:14 PM CDT Jorge Hall MD LAB - CHEMISTRY FELICE MILES [facility] [address] [place] [address], [facility] [phone] * XR CHEST 1VW PORTABLE (10/13/2022 12:10 PM CDT) Anatomical Region Laterality Modality Chest Radiographic [...] identified. Report dictated by Oscar Santizo M.D. (residential tech) 10/13/2022 7:05 AM ICEDRIC MD have personally reviewed and interpreted this [...] identified. Report dictated by Oscar Santizo M.D. (residential tech) 10/13/2022 7:05 AM ICEDRIC MD have personally reviewed and interpreted this examination/study. > Interpreting Provider: CEDRIC FLORES MD on 10/13/2022 2:14 PM Jorge Hall MD DIAGNOSTIC IMAGING O RDERABLES * (ABNORMAL) TROPONIN-I HIGH SENSITIVE (10/13/2022 12:08 PM CDT) Pathologist [facility] Troponin I High Sensitive 72(H) <=35 ng/L 10/13/2022 12:56 PM CDT [facility] Blood BLOOD SPECIMEN / Unknown Venipuncture / Unknown 10/13/2022 12:08 PM CDT 10/13/2022 12:22 PM CDT Jorge Hall MD LAB - CHEMISTRY ORDE RABLES [address] [address], [facility] [phone] * (ABNORMAL) GLUCOSE - POINT OF CARE (10/13/2022 12:04 PM CDT) Pathologist [facility] Glucose WB/POC 220(H) 70 - 115 mg/dL 10/13/2022 12:18 PM CDT [facility] Specimen Type Cap Fingerstick 2022 12:18 PM CDT [facility] Blood BLOOD SPECIMEN / Unknown 10/13/2022 12:04 PM CDT 10/13/2022 12:18 PM CDT Narrative Authorizing Provider Result Lorraine Hall MD LAB - POINT OF CARE ORDERABLES [address] [address], [place] [phone] * XR ABDOMEN KUB PORTABLE (10/13/2022 11:00 AM CDT) Anatomical Region Laterality Modality Abdomen Radiographic Evelyn ging 10/13/2022 11:0 1 AM CDT Impressions 10/13/2022 1:03 PM CDT IMPRESSION: 1.A loop recorder overlies the left axilla. No evidence of retained metallic density foreign bodies within the abdomen. 2.Nonobstructive bowel gas pattern. Report dictated by Oscar Santizo M.D. (residential tech) 10/13/2022 11:03 AM IAdiel MD have personally reviewed and interpreted this examination/study. > Interpreting Provider: Adiel Lynn MD on 10/13/2022 1:03 PM Narrative 10/13/2022 1:03 PM CDT PROCEDURE: ??XR ABDOMEN KUB PORTABLE, DATE/TIME OF EXAM: ??10/13/2022 11:01 AM, LOCATION ??[facility] INDICATION: R53.1: Weakness ADDITIONAL CLINICAL INFORMATION: Ordering Provider Reason For Exam: ??MRI COMPARISON: None. TECHNIQUE: Supine frontal radiograph of the abdomen. FINDINGS: A loop recorder overlies the left axilla. No evidence of retained metallic density foreign bodies within the abdomen. The urinary bladder is opacified with contrast material. Moderate gas and stool are present. There are no findings to suggest bowel obstruction, free intraperitoneal gas or pneumatosis. No abnormal calcifications are seen. No bone abnormality is seen. Procedure Note Adiel Lynn MD - 10/13/2022 PROCEDURE: XR ABDOMEN KUB PORTABLE, DATE/TIME OF EXAM: 10/13/2022 11:01AM, LOCATION [facility] INDICATION: R53.1: Weakness ADDITIONAL CLINICAL INFORMATION: Ordering Provider Reason For Exam: MRI COMPARISON: None. TECHNIQUE: Supine frontal radiograph of the abdomen. FINDINGS: A loop recorder overlies the left axilla. No evidence of retainedmetallic density foreign bodies within the abdomen. The urinary bladder isopacified with contrast material. Moderate gas and stool are present. There are no findings to suggest bowel obstruction, free intraperitoneal gas or pneumatosis. No abnormal calcifications are seen. No bone abnormality is seen. IMPRESSION: 1.A loop recorder overlies the left axilla. No evidence of retained metallic density foreign bodies within the abdomen. 2.Nonobstructive bowel gas pattern. Report dictated by Oscar Santizo M.D. (residential tech) 10/13/2022 11:03 AM I, Adiel Lnyn MD have personally reviewed and interpreted this examination/study. > Interpreting Provider: Adiel Lynn MD on 10/13/2022 1:03PM Jorge Hall MD DIAGNOSTIC IMAGING O RDERABLES * (ABNORMAL) GLUCOSE - POINT OF CARE (10/13/2022 9:33 AM CDT) [facility] Glucose WB/POC 179(H) 70 - 115 mg/dL 10/15/2022 7:10 AM CDT [facility] Specimen Type Cap Fingerstick 2022 7:10 AM CDT [facility] Blood BLOOD SPECIMEN / Unknown 10/13/2022 9:33 AM CDT 10/15/2022 7:09 AM CDT Jorge Hall MD LAB - POINT OF CARE ORDERABLES [facility] [address] [place] [address], [facility] [phone] * EKG 12-LEAD (10/13/2022 8:46 AM CDT) [facility] Ventricular Rate 54 BPM [facility] MUSE Atrial Rate 54 BPM [facility] P-R Interval 220 ms [facility] QRS Duration ms 96 ms [facility] M[facility] Q-T Interval ms 432 ms [facility] M[facility] QTC Calculation (Bezet) 409 ms [facility] MUSE Calculated P [place] 11 degrees [facility] MUSE Calculated R [place] 18 degrees [facility] MUSE Calculated T [place] -152 degrees [facility] M[facility] Interpretation EKG SINUS BRADYCARDIA WITH 1ST DEGREE A-V BLOCK WITH PREMATURE ATRIAL COMPLEXES ANTEROLATERAL INFARCT , AGE UNDETERMINED ABNORMAL ECG Confirmed by MAGALIE RAMAN MD ([id number]) on 10/14/2022 1:20:01 PM [facility] MUSE 10/13/2022 8:46 AM CDT 10/14/2022 1:20 PM CDT Jorge Hall MD ECG ORDERABLES Performing Organization Address City/[facility]/ZIP Co de Phone Number [facility] MUSE * (ABNORMAL) GLUCOSE - POINT OF CARE (10/13/2022 8:37 AM CDT) Glucose WB/POC 218(H) 70 - 115 mg/dL 10/13/2022 8:41 AM CDT [facility] Specimen Type Cap Fingerstick 2022 8:41 AM CDT [facility] Blood BLOOD SPECIMEN / Unknown 10/13/2022 8:37 AM CDT 10/13/2022 8:41 AM CDT Jorge Hall MD LAB - POINT OF CARE ORDERABLES Performing Organization Address City/[facility]/ZIP Co de Phone Number [facility] [address] [place] [address], [facility] [phone] * (ABNORMAL) URINALYSIS REFLEX TO MICROSCOPIC NO CULTURE (10/13/2022 6:40 AM CDT) Color UA Yellow Straw, Yellow 10/13/2022 7:21 AM CDT [facility] Clarity UA Slt Cloudy(A) Clear 10/13/2022 7:21 AM T [facility] Specific [place] UA 1.039(H) 1.005 - 1.030 10/13/2022 7:21 AM CDT [facility] pH UA 5.0 5.0 - 8.0 pH 10/13/2022 7:21 AM T [facility] Protein UA Negative Negative 10/13/2022 7:21 AM T [facility] Glucose UA 3+(A) Negative 10/13/2022 7:21 AM CDT [facility] Ketone UA Negative Negative 10/13/2022 7:21 AM CDT [facility] Bilirubin UA Negative Negative 10/13/2022 7:21 AM [facility] Blood UA Negative Negative 10/13/2022 7:21 AM [facility] Nitrite UA Negative Negative 10/13/2022 7:21 AM [facility] Leukocyte Esterase Negative Negative 10/13/2022 7:21 AM [facility] Urobilinogen UA Negative Negative mg/dL 10/13/2022 7:21 AM [facility] RBC UA 0-2 None Seen, 0-2, 3-5 /HPF 10/13/2022 7:21 AM [facility] WBC UA 0-5 None Seen, 0-5 /HPF 10/13/2022 7:21 AM [facility] Bacteria UA Trace(A) None /HPF 10/13/2022 7:21 AM [facility] Squamous Epithelial Cells UA None Seen None Seen, 0-2, 3-5 /HPF 10/13/2022 7:21 AM [facility] Mucus UA 1+ /LPF 10/13/2022 7:21 AM [facility] Urine URINE SPECIMEN OBTAINED BY CLEAN CATCH PROCEDURE / Unknown Collection / Unknown 10/13/2022 6:40 AM CDT 10/13/2022 6:44 AM [facility] - 10/13/2022 7:21 AM CDT Naseem Randolph MD LAB - URINALYSIS ORD ERABLES [facility] [address] [place] [address], [facility] [phone] * (ABNORMAL) URINE DRUG SCREEN IMMUNOASSAY (10/13/2022 6:40 AM CDT) Pathologist [facility] Amphetamines Screen Urine Negative Negative : < 1000 ng/mL 10/13/2022 7:20 AM [facility] Barbiturates Screen Urine Negative Negative : < 200 ng/mL 10/13/2022 7:20 AM [facility] Benzodiazepine Screen Urine Negative Negative : < 200 ng/mL 10/13/2022 7:20 AM [facility] Opiates Urine Positive(A) Negative : < 300 ng/mL 10/13/2022 7:20 AM [facility] Comment:Positive urine opiat e screening results should be confirmed by another generally accepted non-immunological method such as gas chromatography or mass spectrometry. Cocaine Metabolites Urine Negative Negative : < 300 ng/mL 10/13/2022 7:20 AM [facility] Phencyclidine Screen Urine Negative Negative : < 25 ng/ml 10/13/2022 7:20 AM [facility] Cannabinoids Screen Urine Negative Negative : <50 ng/mL 10/13/2022 7:20 AM [facility] Methadone Screen Urine Negative Negative : < 300 ng/mL 10/13/2022 7:20 AM [facility] Fentanyl Screen Urine Negative Negative : <1.5 ng/mL 10/13/2022 7:20 AM [facility] Urine URINE / Unknown Collection / Unknown 10/13/2022 6:40 AM CDT 10/13/2022 6:44 AM [facility] - 10/13/2022 7:20 AM [facility] The Urine Toxicology Screening Panel does not screen for Propoxyphene, Meprobamate, Carisoprodol, Trazodone, hzwr-hzm-amyelat medications and/or volatiles (Acetone, Isopropanol, Methanol or Ethylene Glycol). Ethanol, Salicylate, Acetaminophen, Tricyclic Antidepressants and several therapeutic drugs may be individually assayed in serum or plasma specimen. Toxicology testing by the [facility] is an aid to medical diagnosis and treatment of patients. No documented chain of custody was maintained. Results are intended to be used for clinical purposes only. ? Naseem Randolph MD LAB - URINE CHEMISTR Y ORDERABLES [facility] [address] [place] [address], [facility] [phone] * (ABNORMAL) CBC W AUTO DIFFERENTIAL (10/13/2022 5:35 AM [facility]) WBC 15.1(H) 3.5 - 10.5 10? 3 /uL 10/13/2022 8:02 AM [facility] RBC 4.01(L) 4.30 - 5.70 10? 6 /uL 10/13/2022 8:02 AM [facility] Hemoglobin 11.8(L) 12.0 - 17.6 g/dL 10/13/2022 8:02 AM [facility] Hematocrit 35.4 35.2 - 51.7 % 10/13/2022 8:02 AM [facility] MCV 88.3 80.7 - 98.3 fL 10/13/2022 8:02 AM [facility] MCH 29.4 26.7 - 34.0 pg 10/13/2022 8:02 AM [facility] MCHC 33.3 30.8 - 35.9 g/dL 10/13/2022 8:02 AM [facility] RDW-SD 48.9 36.0 - 50.0 fL 10/13/2022 8:02 AM [facility] RDW-CV 14.9(H) 11.2 - 14.8 % 10/13/2022 8:02 AM [facility] Platelet Count 10/13/2022 8:02 AM [facility] Comment:Platelets are clumpe d, appear as adequate on the slide. A blue top citrated tube is recommended for a platelet count. MPV 10/13/2022 8:02 AM [facility] Comment:Unable to Report Immature Platelet Fraction 10/13/2022 8:02 AM [facility] Comment:Unable to Report nRBC Absolute 0.00 0 10? 3 /uL 10/13/2022 8:02 AM [facility] nRBC Auto 0.0 0 /100 WBC 10/13/2022 8:02 AM [facility] Neutrophils % 86.7(H) 35.0 - 70.0 % 10/13/2022 8:02 AM [facility] Lymphocytes % 6.4(L) 20.0 - 43.0 % 10/13/2022 8:02 AM [facility] Monocytes % 6.1 5.0 - 13.0 % 10/13/2022 8:02 AM [facility] Eosinophils % 0.0 0.0 - 6.0 % 10/13/2022 8:02 AM [facility] Basophil % 0.1 0.0 - 2.0 % 10/13/2022 8:02 AM [facility] Neutrophils Absolute 13.14(H) 1.60 - 7.00 10? 3 /uL 10/13/2022 8:02 AM [facility] Lymphocyte Absolute 0.97(L) 1.10 - 3.90 10? 3 /uL 10/13/2022 8:02 AM [facility] Monocytes Absolute 0.92 0.26 - 1.07 10? 3 /uL 10/13/2022 8:02 AM [facility] Eosinophils Absolute 0.00 0.00 - 0.47 10? 3 /uL 10/13/2022 8:02 AM [facility] Basophils Absolute 0.01 0.00 - 0.08 10? 3 /uL 10/13/2022 8:02 AM [facility] Immature Granulocytes % 0.7 0.0 - 1.0 % 10/13/2022 8:02 AM [facility] Immature Granulocytes Absolute 0.10 10/13/2022 8:02 AM [facility] Blood BLOOD SPECIMEN / Unknown Venipuncture / Unknown 10/13/2022 5:35 AM CDT 10/13/2022 5:45 AM [facility] Jorge Hall MD LAB - HEMATOLOGY ORD ERABLES [facility] [address] [place] [address]RUST [phone] * (ABNORMAL) BLOOD GASES ART + COOX PANEL (10/13/2022 5:35 AM T) pH Arterial 7.31(L) 7.35 - 7.45 pH 10/13/2022 5:52 AM [facility] pO2 Arterial 134(H) 80 - 100 mmHg 10/13/2022 5:52 AM [facility] pCO2 Arterial 37 35 - 45 mmHg 5:52 AM [facility] HCO3 Arterial 18.6(L) 20.0 - 30.0 mmol/L 10/13/2022 5:52 AM [facility] BE Arterial -7.0(L) -2.0 - 2.0 mmol/L 10/13/2022 5:52 AM [facility] Oxyhemoglobin Arterial 97.5 % 10/13/2022 5:52 AM [facility] Dexoyhemoglobin (HHB) % 0.0 % 10/13/2022 5:52 AM [facility] Methemoglobin 1.0 0.0 - 2.0 % 10/13/2022 5:52 AM [facility] Carboxyhemoglobin 1.4 0.0 - 2.0 % 2022 5:52 AM [facility] O2 Content Arterial 16.7 Interpret within clinical context ml/dL 10/13/2022 5:52 AM [facility] Hemoglobin by COOX 12.0 12.0 - 17.6 g/dL 10/13/2022 5:52 AM [facility] O2 Saturation Arterial 100 90 - 100 % 10/13/2022 5:52 AM [facility] FI O2 Arterial 50.0 % 10/13/2022 5:52 AM [facility] Blood, arterial ARTERIAL BLOOD SPECIMEN / Unknown Arterial Puncture / Unknown 10/13/2022 5:35 AM CDT 10/13/2022 5:42 AM [facility] - 10/13/2022 5:52 AM [facility] Carboxyhemoglobin Normal Concentration: Non-smokers: 0-2%; Smokers: 0-9%; Toxic: >20% Jorge Hall MD LAB - BLOOD GASES OR DERABLES [address] [address], [facility] [phone] * (ABNORMAL) GLUCOSE - POINT OF CARE (10/13/2022 5:34 AM CDT) [facility] Glucose WB/POC 234(H) 70 - 115 mg/dL 10/13/2022 5:39 AM CDT [facility] Specimen Type Arterial 10/13/2022 5:39 AM T [facility] Blood BLOOD SPECIMEN / Unknown 10/13/2022 5:34 AM CDT 10/13/2022 5:39 AM CDT Jorge Hall MD LAB - POINT OF CARE ORDERABLES Performing Organization Address City/[facility]/ZIP Co de Phone Number [address] [address], [facility] [phone] * (ABNORMAL) BLOOD GASES ART + COOX PANEL (10/13/2022 2:28 AM CDT) [facility] pH Arterial 7.28(L) 7.35 - 7.45 pH 10/13/2022 2:35 AM [facility] pO2 Arterial 115(H) 80 - 100 mmHg 10/13/2022 2:35 AM [facility] pCO2 Arterial 40 35 - 45 mmHg 2:35 AM [facility] HCO3 Arterial 18.8(L) 20.0 - 30.0 mmol/L 10/13/2022 2:35 AM [facility] BE Arterial -7.5(L) -2.0 - 2.0 mmol/L 10/13/2022 2:35 AM [facility] Oxyhemoglobin Arterial 96.9 % 10/13/2022 2:35 AM T [facility] Dexoyhemoglobin (HHB) % 0.0 % 10/13/2022 2:35 AM [facility] Methemoglobin <0.8 0.0 - 2.0 % 10/13/2022 2:35 AM [facility] Carboxyhemoglobin 2.4(H) 0.0 - 2.0 % 2022 2:35 AM [facility] O2 Content Arterial 16.8 Interpret within clinical context ml/dL 10/13/2022 2:35 AM [facility] Hemoglobin by COOX 12.2 12.0 - 17.6 g/dL 10/13/2022 2:35 AM [facility] O2 Saturation Arterial 100 90 - 100 % 10/13/2022 2:35 AM [facility] FI O2 Arterial 50.0 % 10/13/2022 2:35 AM [facility] Blood, arterial ARTERIAL BLOOD SPECIMEN / Unknown Arterial Puncture / Unknown 10/13/2022 2:28 AM T 10/13/2022 2:33 AM [facility] Narrative [facility] - 10/13/2022 2:35 AM [facility] Carboxyhemoglobin Normal Concentration: Non-smokers: 0-2%; Smokers: 0-9%; Toxic: >20% Jorge Hall MD LAB - BLOOD GASES OR DERABLES [facility] [address] [place] [address], [facility] [phone] * (ABNORMAL) LIPID PROFILE (10/13/2022 2:28 AM [facility]) [facility] Signature Cholesterol Total 148 <200 mg/dL 10/13/2022 3:05 AM [facility] HDL 40(L) >40 mg/dL 10/13/2022 3:05 AM [facility] Comment: ATP III Classification of HDL Cholesterol: ? <40 mg/dL: ??Considered a major risk factor. ? >60 mg/dL: ??Considered a negative risk factor. ? LDL Calculated 85 <100 mg/dL 10/13/2022 3:05 AM [facility] Comment: ATP III Classification of LDL Cholesterol: ?<100 mg/dL: ??Optimal ? 100 - 129 mg/dL: ??Near Optimal/Above Optimal ? 130 - 159 mg/dL: ??Borderline High ? 160 - 189 mg/dL: ??High ?>190 mg/dL: ??Very High ? Triglycerides 117 <150 mg/dL 10/13/2022 3:05 AM CDT [facility] Comment: ATP III Classification of Triglycerides: ?<150 mg/dL: ??Normal ? 150 - 199 mg/dL: ??Borderline High ? 200 - 400 mg/dL: ??High ?>500 mg/dL: ??Very High Blood BLOOD SPECIMEN / Unknown Venipuncture / Unknown 10/13/2022 2:28 AM CDT 10/13/2022 2:37 AM CDT Naseem Randolph MD LAB - CHEMISTRY FELICE MILES Performing Organization Address City/[facility]/ZIP Co de Phone Number [address] [address], [place] [phone] * (ABNORMAL) GLUCOSE - POINT OF CARE (10/13/2022 2:27 AM CDT) Glucose WB/POC 266(H) 70 - 115 mg/dL 10/13/2022 2:33 AM CDT [facility] Specimen Type Arterial 10/13/2022 2:33 AM CDT [facility] Blood BLOOD SPECIMEN / Unknown 10/13/2022 2:27 AM CDT 10/13/2022 2:33 AM CDT Jorge Hall MD LAB - POINT OF CARE ORDERABLES Performing Organization Address City/[facility]/ZIP Co de Phone Number [address] [address], [place] [phone] * XR CHEST 1VW PORTABLE (10/13/2022 1:53 AM CDT) Anatomical Region Laterality Modality Chest Radiographic Evelyn ging 10/13/2022 8:17 AM CDT Narrative 10/13/2022 2:16 PM CDT PROCEDURE: ??XR CHEST 1VW PORTABLE, DATE/TIME OF EXAM: ??10/13/2022 1:53 AM, LOCATION ??[facility] INDICATION: R06.00: Dyspnea, unspecified type ADDITIONAL CLINICAL INFORMATION: Ordering Provider Reason For Exam: ??ETT position COMPARISON: Chest x-ray 10/13/2022. FINDINGS/IMPRESSION: Endotracheal tube terminates at the level of thoracic inlet/mid thoracic trachea, approximately 7 cm above the cathi. A loop recorder superimposes the left chest. There is minimal basilar atelectasis. There is no focal consolidation, pleural effusion, or pneumothorax. The heart size is normal and mediastinal contours are normal. > Dictated by Noe Bravo MD (residential tech). Wen Orourke MD have personally reviewed and interpreted this examination/study. > Interpreting Provider: Wen Lee MD on 10/13/2022 2:16 PM Procedure Note Wen Lee MD - 10/13/2022 PROCEDURE: XR CHEST 1VW PORTABLE, DATE/TIME OF EXAM: 10/13/2022 1:53 AM, LOCATION [facility] INDICATION: R06.00: Dyspnea, unspecified type ADDITIONAL CLINICAL INFORMATION: Ordering Provider Reason For Exam: ETT position COMPARISON: Chest x-ray 10/13/2022. FINDINGS/IMPRESSION: Endotracheal tube terminates at the level of thoracic inlet/mid thoracic trachea, approximately 7 cm above the cathi. A loop recorder superimposes the left chest. There is minimal basilar atelectasis. There is no focal consolidation, pleural effusion, or pneumothorax. The heart size is normal and mediastinal contours are normal. > Dictated by Noe Bravo MD (residential tech). Wen Orourke MD have personally reviewed and interpreted this examination/study. > Interpreting Provider: Wen Lee MD on 10/13/2022 2:16 PM Jorge Hall MD DIAGNOSTIC IMAGING O RDERABLES * XR CHEST 1VW PORTABLE (10/13/2022 1:38 AM CDT) Anatomical Region Laterality Modality Chest Radiographic Evelyn ging 10/13/2022 7:03 AM CDT Narrative 10/13/2022 11:43 AM CDT EXAMINATION: XR CHEST 1VW PORTABLE HISTORY: R06.00: Dyspnea, unspecified type E87.29: Respiratory acidosis COMPARISON: Chest radiograph 10/12/2022 FINDINGS/IMPRESSION: Lines: *Interval insertion of endotracheal tube which terminates in the proximal thoracic trachea, 6 cm from the cathi. *A loop recorder superimposes the left chest. No confluent consolidation is noted. No pleural effusion is seen. No pneumothorax is identified. The heart is borderline enlarged. Aortic atherosclerosis is noted. The superior mediastinal contours are within normal limits. No acute osseous abnormality is identified. Report dictated by Oscar Santizo M.D. (residential tech) 10/13/2022 7:05 AM IAdiel MD have personally reviewed and interpreted this examination/study. > Interpreting Provider: Adiel Lynn MD on 10/13/2022 11:43 AM Procedure Note Adiel Lynn MD - 10/13/2022 EXAMINATION: XR CHEST 1VW PORTABLE HISTORY: R06.00: Dyspnea, unspecified type E87.29: Respiratory acidosis COMPARISON: Chest radiograph 10/12/2022 FINDINGS/IMPRESSION: Lines: *Interval insertion of endotracheal tube which terminates in theproximal thoracic trachea, 6 cm from the cathi. *A loop recorder superimposes the left chest. No confluent consolidation is noted. No pleural effusion is seen. No pneumothorax is identified. The heart is borderline enlarged. Aortic atherosclerosis is noted. The superior mediastinal contours are within normal limits. No acute osseous abnormality is identified. Report dictated by Oscar Santizo M.D. (residential tech) 10/13/2022 7:05 AM Aidel Orourke MD have personally reviewed and interpreted this examination/study. > Interpreting Provider: Adiel Lynn MD on 1:43 AM Jorge Hall MD DIAGNOSTIC IMAGING O RDERABLES * CT NECK SOFT TISSUE W CONT [...] verification. > Dictated by Dean Cleveland M.D. (residential tech) ISundar MD have personally reviewed and interpreted this examination/study. > Interpreting Provider: Sundar Devine MD on 10/13/2022 10:39 AM Narrative 10/13/2022 10:39 AM CDT PROCEDURE: ??CT NECK SOFT TISSUE W CONT, DATE/TIME OF EXAM: ??10/13/2022 1:29 AM, LOCATION ??[facility] INDICATION: R06.00: Dyspnea, unspecified type ADDITIONAL CLINICAL [...] CONT, DATE/TIME OF EXAM: :29 AM, LOCATION [facility] INDICATION: R06.00: Dyspnea, unspecified type ADDITIONAL CLINICAL [...] verification. > Dictated by Dean Cleveland M.D. (residential tech) ISundar MD have personally reviewed and interpretedthis examination/study. > Interpreting Provider: Sundar Devine MD on 10/13/2022 10:39 AM Jorge Hall MD CT ORDERABLES * CT HEAD WO CONTRAST (10/13/2022 1:25 AM CDT) Anatomical Region Laterality Modality Head Computed Tomogra phy 10/13/2022 7:45 AM CDT Impressions 10/13/2022 10:21 AM CDT IMPRESSION: 1.Suggestion of interval diffuse edema in the right MCA territory concerning for evolving right MCA territory ischemia. MRI of the brain is recommended for further evaluation.. 2.Additional chronic findings as outlined above. Results of this exam were communicated with closed loop confirmation to Dr. Mendenhall by Dr. Devine on ??10/13/2022 at 9:54 AM with read back compression and verification. Report dictated by Romain Mckee MD, PhD (residential tech). I, Sundar Devine MD have personally reviewed and interpreted this examination/study. > Interpreting Provider: Sundar Devine MD on 10/13/2022 10:21 AM Narrative 10/13/2022 10:21 AM CDT PROCEDURE: ??CT HEAD WO CONTRAST, DATE/TIME OF EXAM: ??10/13/2022 1:26 AM, LOCATION ??[facility] INDICATION: I63.9: Ischemic stroke (CMS/HCC) EXAMINATION: Computed tomography (CT) of the head without contrast ADDITIONAL CLINICAL INFORMATION: Ordering Provider Reason For Exam: ??Acute respiratory distress. R/o central causes Technologist Note: ??None. Additional: ??None. ?? TECHNIQUE: CT of the head was performed without contrast according to standard protocol. CT dose reduction technique was used, including Automated Exposure Control. COMPARISON: CT of the head from 10/12/2022. FINDINGS: No acute intra- or extra-axial fluid collections are identified. There is mild cerebral volume loss with associated ex vacuo ventricular dilatation. The basilar cisterns are patent. No significant mass effect or midline shift is seen. There has been interval mild diffuse but subtle hypoattenuation and loss of orozco-white matter differentiation involving larger portions of the right frontal and right temporal lobes as well as the right insula, and possibly posterior lateral temporal lobes which could represent acute evolving acute right MCA territory infarcts. MRI of the brain is recommended for further evaluation. Additional subtle hypoattenuation along the parasagittal right frontal lobe is also noted. Redemonstration of chronic infarcts with areas of encephalomalacia and gliosis in the right frontal and right parietal as well as the right occipital lobes compatible with chronic right MCA, SHEA, and BOARD MEMBER territory infarcts. Additional tiny lacunar infarcts in the bilateral cerebellar hemispheres are again noted. Periventricular white matter hypoattenuation is indicative of chronic small vessel ischemic disease. There is vascular calcification of the carotid siphons. No acute calvarial fracture is identified. Other than bilateral cataract extractions, the orbits appear normal. There is mild paranasal sinus disease. Opacification of the nasal passages and the nasopharynx. The patient is intubated. The mastoid air cells are grossly clear. Calcific densities along the left frontal scalp are again noted. No soft tissue abnormality is otherwise identified. Procedure Note Sundar Devine MD - 10/13/2022 PROCEDURE: CT HEAD WO CONTRAST, DATE/TIME OF EXAM: 10/13/2022 1:26 AM, LOCATION [facility] INDICATION: I63.9: Ischemic stroke (CMS/HCC) EXAMINATION: Computed tomography (CT) of the head without contrast ADDITIONAL CLINICAL INFORMATION: Ordering Provider Reason For Exam: Acute respiratory distress. R/ocentral causes Technologist Note: None. Additional: None. TECHNIQUE: CT of the head was performed without contrast according to standard protocol. CT dose reduction technique was used, including Automated Exposure Control. COMPARISON: CT of the head from 10/12/2022. FINDINGS: No acute intra- or extra-axial fluid collections are identified. Thereis mild cerebral volume loss with associated ex vacuo ventriculardilatation. The basilar cisterns are patent. No significant mass effect or midline shift is seen. There has been interval mild diffuse but subtle hypoattenuation and lossof orozco-white matter differentiation involving larger portions of the right frontal and right temporal lobes as well as the right insula, andpossibly posterior lateral temporal lobes which could represent acute evolvingacute right MCA territory infarcts. MRI of the brain is recommended forfurther evaluation. Additional subtle hypoattenuation along the parasagittalright frontal lobe is also noted. Redemonstration of chronic infarcts withareas of encephalomalacia and gliosis in the right frontal and right parietalas well as the right occipital lobes compatible with chronic right MCA,SHEA, and BOARD MEMBER territory infarcts. Additional tiny lacunar infarcts in the bilateral cerebellar hemispheres are again noted. Periventricular white matter hypoattenuation is indicative of chronicsmall vessel ischemic disease. There is vascular calcification of the carotid siphons. No acute calvarial fracture is identified. Other than bilateral cataract extractions, the orbits appear normal. There is mild paranasal sinus disease. Opacification of the nasal passages and the nasopharynx.The patient is intubated. The mastoid air cells are grossly clear. Calcific densities along the left frontal scalp are again noted. No soft tissue abnormality is otherwise identified. IMPRESSION: 1.Suggestion of interval diffuse edema in the right MCA territory concerning for evolving right MCA territory ischemia. MRI of the brainis recommended for further evaluation.. 2.Additional chronic findings as outlined above. Results of this exam were communicated with closed loop confirmation toDr. Mendenhall by Dr. Devine on 10/13/2022 at 9:54 AM with read backcompression and verification. Report dictated by Romain Mckee MD, PhD (residential tech). I, Sundar Devine MD have personally reviewed and interpretedthis examination/study. > Interpreting Provider: Sundar Devine MD on 10/13/2022 10:21 AM Jorge Hall MD CT ORDERABLES * (ABNORMAL) BLOOD GASES ART + COOX PANEL (10/12/2022 11:53 PM CDT) pH Arterial 7.12(LL) 7.35 - 7.45 pH 10/13/2022 12:06 AM [facility] pO2 Arterial 59(L) 80 - 100 mmHg 10/13/2022 12:06 AM [facility] pCO2 Arterial 62(H) 35 - 45 mmHg 12:06 AM [facility] HCO3 Arterial 20.2 20.0 - 30.0 mmol/L 10/13/2022 12:06 AM [facility] BE Arterial -10.0(L) -2.0 - 2.0 mmol/L 10/13/2022 12:06 AM [facility] Oxyhemoglobin Arterial 85.2 % 10/13/2022 12:06 AM [facility] Dexoyhemoglobin (HHB) % 12.2 % 10/13/2022 12:06 AM [facility] Methemoglobin <0.8 0.0 - 2.0 % 10/13/2022 12:06 AM [facility] Carboxyhemoglobin 2.1(H) 0.0 - 2.0 % 2022 12:06 AM [facility] O2 Content Arterial 16.9 Interpret within clinical context ml/dL 10/13/2022 12:06 AM [facility] Hemoglobin by COOX 14.1 12.0 - 17.6 g/dL 10/13/2022 12:06 AM [facility] O2 Saturation Arterial 88(L) 90 - 100 % 10/13/2022 12:06 AM [facility] FI O2 Arterial 100.0 % 10/13/2022 12:06 AM [facility] Blood, arterial ARTERIAL BLOOD SPECIMEN / Unknown Arterial Puncture / Unknown 10/12/2022 11:53 PM T 10/12/2022 11:59 PM [facility] - 10/13/2022 12:06 AM [facility] Carboxyhemoglobin Normal Concentration: Non-smokers: 0-2%; Smokers: 0-9%; Toxic: >20% Jorge Hall MD LAB - BLOOD GASES OR DERABLES Performing Organization Address [facility]/State/ZIP Co de Phone Number [address] [address], [facility] [phone] * (ABNORMAL) BASIC METABOLIC PANEL (CALCIUM TOTAL) (10/12/2022 11:53 PM T) BUN 34(H) 7 - 26 mg/dL 10/13/2022 12:31 AM [facility] Creatinine 1.40(H) 0.71 - 1.16 mg/dL 10/13/2022 12:31 AM [facility] Sodium 137 136 - 145 mmol/L 10/13/2022 12:31 AM [facility] Potassium 5.1(H) 3.5 - 4.5 mmol/L 10/13/2022 12:31 AM [facility] Chloride 110(H) 98 - 107 mmol/L 10/13/2022 12:31 AM [facility] CO2 18(L) 22 - 29 mmol/L 10/13/2022 12:31 AM [facility] Glucose 278(H) 70 - 115 mg/dL 10/13/2022 12:31 AM [facility] Calcium 9.4 8.4 - 10.2 mg/dL 10/13/2022 12:31 AM [facility] Anion Gap 14 8 - 18 10/13/2022 12:31 AM [facility] BUN/Creatinine Ratio 24(H) 7 - 23 10/13/2022 12:31 AM [facility] Osmolality Calculated 302(H) 270 - 300 mOsm/kg 10/13/2022 12:31 AM [facility] eGFR by CKD-EPI 55(L) >=90 mL/min/1.7 3 m2 10/13/2022 12:31 AM [facility] Blood BLOOD SPECIMEN / Unknown Venipuncture / Unknown 10/12/2022 11:53 PM CDT 10/13/2022 12:01 AM T Naseem Randolph MD LAB - CHEMISTRY ORDE [facility] Organization Address City/State/ZIP Co de Phone Number [facility] [address] [place] [address], [facility] [phone] * (ABNORMAL) CBC W AUTO DIFFERENTIAL (10/12/2022 11:53 PM T) WBC 22.0(H) 3.5 - 10.5 10? 3 /uL 10/13/2022 12:08 AM [facility] RBC 4.62 4.30 - 5.70 10? 6 /uL 10/13/2022 12:08 AM [facility] Hemoglobin 13.4 12.0 - 17.6 g/dL 10/13/2022 12:08 AM [facility] Hematocrit 41.3 35.2 - 51.7 % 10/13/2022 12:08 AM [facility] MCV 89.4 80.7 - 98.3 fL 10/13/2022 12:08 AM [facility] MCH 29.0 26.7 - 34.0 pg 10/13/2022 12:08 AM [facility] MCHC 32.4 30.8 - 35.9 g/dL 10/13/2022 12:08 AM [facility] RDW-SD 48.0 36.0 - 50.0 fL 10/13/2022 12:08 AM [facility] RDW-CV 14.6 11.2 - 14.8 % 10/13/2022 12:08 AM [facility] Platelet Count 237 150 - 400 10? 3 /uL 10/13/2022 12:08 AM [facility] MPV 9.1(L) 9.4 - 12.9 fL 10/13/2022 12:08 AM [facility] nRBC Absolute 0.00 0 10? 3 /uL 10/13/2022 12:08 AM [facility] nRBC Auto 0.0 0 /100 WBC 10/13/2022 12:08 AM [facility] Neutrophils % 87.8(H) 35.0 - 70.0 % 10/13/2022 12:08 AM [facility] Lymphocytes % 6.6(L) 20.0 - 43.0 % 10/13/2022 12:08 AM [facility] Monocytes % 4.6(L) 5.0 - 13.0 % 10/13/2022 12:08 AM [facility] Eosinophils % 0.0 0.0 - 6.0 % 10/13/2022 12:08 AM [facility] Basophil % 0.2 0.0 - 2.0 % 10/13/2022 12:08 AM [facility] Neutrophils Absolute 19.34(H) 1.60 - 7.00 10? 3 /uL 10/13/2022 12:08 AM [facility] Lymphocyte Absolute 1.46 1.10 - 3.90 10? 3 /uL 10/13/2022 12:08 AM [facility] Monocytes Absolute 1.02 0.26 - 1.07 10? 3 /uL 10/13/2022 12:08 AM [facility] Eosinophils Absolute 0.00 0.00 - 0.47 10? 3 /uL 10/13/2022 12:08 AM [facility] Basophils Absolute 0.04 0.00 - 0.08 10? 3 /uL 10/13/2022 12:08 AM CDT [facility] Immature Granulocytes % 0.8 0.0 - 1.0 % 10/13/2022 12:08 AM CDT [facility] Immature Granulocytes Absolute 0.17 10/13/2022 12:08 AM CDT [facility] Blood BLOOD SPECIMEN / Unknown Venipuncture / Unknown 10/12/2022 11:53 PM CDT 10/13/2022 12:01 AM CDT Naseem Randolph MD LAB - HEMATOLOGY [place] [address] [address], [facility] [phone] * PHOSPHORUS BLOOD (10/12/2022 11:53 PM CDT) Phosphorus 3.5 2.8 - 5.1 mg/dL 10/13/2022 12:27 AM CDT [facility] Blood BLOOD SPECIMEN / Unknown Venipuncture / Unknown 10/12/2022 11:53 PM CDT 10/13/2022 12:01 AM CDT Naseem Randolph MD LAB - CHEMISTRY [place] Performing Organization Address City/[facility]/ZIP Co de Phone Number [address] [address], [place] [phone] * MAGNESIUM BLOOD (10/12/2022 11:53 PM CDT) Magnesium 1.9 1.6 - 2.6 mg/dL 10/13/2022 12:27 AM CDT [facility] Blood BLOOD SPECIMEN / Unknown Venipuncture / Unknown 10/12/2022 11:53 PM CDT 10/13/2022 12:01 AM CDT Naseem Randolph MD LAB - CHEMISTRY [place] [address] [place] [address], [place] [phone] * (ABNORMAL) GLUCOSE - POINT OF CARE (10/12/2022 10:40 PM CDT) [facility] Glucose WB/POC 261(H) 70 - 115 mg/dL 10/12/2022 10:45 PM CDT [facility] Specimen Type Venous 10/12/2022 10:45 PM CDT [facility] Blood BLOOD SPECIMEN / Unknown 10/12/2022 10:40 PM CDT 10/12/2022 10:45 PM CDT Jorge Hall MD LAB - POINT OF CARE ORDERABLES [address] [address], [place] [phone] * TROPONIN-I HIGH SENSITIVE REFLEX 1HOUR (10/12/2022 10:31 PM CDT) [facility] Troponin I High Sensitive 14 <=35 ng/L 10/12/2022 11:26 PM CDT [facility] Delta Troponin I HS 10/12/2022 11:26 PM CDT [facility] Comment:Delta value intentio queenie not calculated. Baseline to 1 hour specimen collection interval exceeded. Blood BLOOD SPECIMEN / Unknown Venipuncture / Unknown 10/12/2022 10:31 PM CDT 10/12/2022 10:36 PM CDT Naseem Randolph MD LAB - CHEMISTRY [place] [address] [address], [place] [phone] * (ABNORMAL) HEMOGLOBIN A1C (10/12/2022 10:31 PM CDT) [facility] Hemoglobin A1c 7.7(H) <=5.6 % 10/13/2022 8:30 AM CDT [facility] Estimated Average Glucose 174 mg/dL 10/13/2022 8:30 AM CDT [facility] Comment: HbA1c Interpretation: Normal : < 5.7% Pre-diabetes: 5.7-6.4% Diabetes: Equal to or greater than 6.5% Test results diagnostic of diabetes should be repeated for confirmation. Treatment target values recommended by ADA and other clinical organizations should be used to evaluate metabolic control in patients. Reference: [place] [employer], Standards of Care in Diabetes -2020 In patients 70 years and older consider HbA1c target range of 7.0-7.5% (Reference: Israel Marcos et al. JAMDA. 2012) The Sebia assay for the measurement of HbA1c is a National Glycohemoglobin Standardization Program (NGSP) certified method. Blood BLOOD SPECIMEN / Unknown Venipuncture / Unknown 10/12/2022 10:31 PM CDT 10/12/2022 10:36 PM CDT Naseem Randolph MD LAB - CHEMISTRY [place] [facility] Organization Address City/State/ZIP Co de Phone Number [address] [address], [facility] [phone] * XR CHEST 1VW PORTABLE (10/12/2022 9:31 PM CDT) Anatomical Region Laterality Modality Chest Radiographic Evelyn ging 10/13/2022 6:35 AM CDT Narrative 10/13/2022 6:36 AM CDT EXAMINATION: XR CHEST 1VW PORTABLE HISTORY: R53.1: Weakness COMPARISON: Chest radiograph dated 12/11/2021 FINDINGS/IMPRESSION: Lines: *A loop recorder superimposes the left chest. No confluent consolidation is noted. No pleural effusion is seen. No pneumothorax is identified. The heart is enlarged for this AP view. Aortic atherosclerosis is noted. The superior mediastinal contours are within normal limits. No acute osseous abnormality is identified. No free air is seen under the diaphragm. > Interpreting Provider: CEDRIC FLORES MD on 10/13/2022 6:36 AM Procedure Note eCdric Flores MD - 10/13/2022 EXAMINATION: XR CHEST 1VW PORTABLE HISTORY: R53.1: Weakness COMPARISON: Chest radiograph dated 12/11/2021 FINDINGS/IMPRESSION: Lines: *A loop recorder superimposes the left chest. No confluent consolidation is noted. No pleural effusion is seen. No pneumothorax is identified. The heart is enlarged for this AP view.Aortic atherosclerosis is noted. The superior mediastinal contours are within normal limits. No acute osseous abnormality is identified. No free airis seen under the diaphragm. > Interpreting Provider: CEDRIC FLORES MD on 10/13/2022 6:36 AM Naseem Randolph MD DIAGNOSTIC IMAGING O RDERABLES * (ABNORMAL) BASIC METABOLIC PANEL (CALCIUM TOTAL) (10/12/2022 8:23 PM [facility]) BUN 27(H) 7 - 26 mg/dL 10/12/2022 9:19 PM [facility] Creatinine 0.91 0.71 - 1.16 mg/dL 10/12/2022 9:19 PM [facility] Sodium 137 136 - 145 mmol/L 10/12/2022 9:19 PM [facility] Potassium 3.3(L) 3.5 - 4.5 mmol/L 10/12/2022 9:19 PM [facility] Chloride 120(H) 98 - 107 mmol/L 10/12/2022 9:19 PM [facility] CO2 13(L) 22 - 29 mmol/L 10/12/2022 9:19 PM [facility] Glucose 176(H) 70 - 115 mg/dL 10/12/2022 9:19 PM [facility] Calcium 5.8(LL) 8.4 - 10.2 mg/dL 10/12/2022 9:19 PM [facility] Anion Gap 7(L) 8 - 18 10/12/2022 9:19 PM [facility] BUN/Creatinine Ratio 30(H) 7 - 23 10/12/2022 9:19 PM [facility] Osmolality Calculated 293 270 - 300 mOsm/kg 10/12/2022 9:19 PM [facility] eGFR by CKD-EPI >90 >=90 mL/min/1.7 3 m2 10/12/2022 9:19 PM [facility] Blood BLOOD SPECIMEN / Unknown Venipuncture / Unknown 10/12/2022 8:23 PM CDT 10/12/2022 8:35 PM CDT Naseem Randolph MD LAB - CHEMISTRY [place] Performing Organization Address City/[facility]/ZIP Co de Phone Number [address] [address], [place] [phone] * PHOSPHORUS BLOOD (10/12/2022 8:21 PM CDT) Phosphorus 2.8 2.8 - 5.1 mg/dL 10/12/2022 9:04 PM CDT [facility] Blood BLOOD SPECIMEN / Unknown Venipuncture / Unknown 10/12/2022 8:21 PM CDT 10/12/2022 8:35 PM CDT Naseem Randolph MD LAB - CHEMISTRY [place] Performing Organization Address [facility]/ZIP Co de Phone Number [address] [address], [place] [phone] * MAGNESIUM BLOOD (10/12/2022 8:21 PM CDT) Magnesium 1.8 1.6 - 2.6 mg/dL 10/12/2022 9:04 PM CDT [facility] Blood BLOOD SPECIMEN / Unknown Venipuncture / Unknown 10/12/2022 8:21 PM CDT 10/12/2022 8:35 PM CDT Naseem Randolph MD LAB - CHEMISTRY [place] Performing Organization Address City/[facility]/ZIP Co de Phone Number [address] [address], [place] [phone] * TROPONIN-I HIGH SENSITIVE BASELINE + 1HR (10/12/2022 8:21 PM CDT) Troponin I High Sensitive 13 <=35 ng/L 10/12/2022 9:09 PM CDT [facility] Blood BLOOD SPECIMEN / Unknown Venipuncture / Unknown 10/12/2022 8:21 PM CDT 10/12/2022 8:35 PM CDT Naseem Randolph MD LAB - CHEMISTRY [place] [facility] [address] [place] [address], [facility] [phone] * PT-INR [facility] (10/12/2022 8:21 PM CDT) Pathologist [facility] PT 13.8 12.1 - 14.8 Seconds 10/12/2022 8:58 PM CDT [facility] INR 1.1 See Comment 10/12/2022 8:58 PM T [facility] Comment:The suggested therap eutic range for standard coumadin (warfarin) therapy is an INR of 2.0-3.0. For high-risk patients (Mechanical Mitral Valve Prosthesis, etc.), the suggested prophylactic therapeutic range is an INR of 2.5-3.5. Blood BLOOD SPECIMEN / Unknown Venipuncture / Unknown 10/12/2022 8:21 PM CDT 10/12/2022 8:35 PM CDT Ketan Snowden MD LAB - COAGULATION OR DERABLES [facility] [address] [place] [address], [facility] [phone] * (ABNORMAL) COMPREHENSIVE METABOLIC PANEL (10/12/2022 8:21 PM CDT) BUN 34(H) 7 - 26 mg/dL 10/12/2022 9:04 PM CDT [facility] Creatinine 1.36(H) 0.71 - 1.16 mg/dL 10/12/2022 9:04 PM CDT [facility] Sodium 135(L) 136 - 145 mmol/L 10/12/2022 9:04 PM CDT [facility] Potassium 5.2(H) 3.5 - 4.5 mmol/L 10/12/2022 9:04 PM CDT [facility] Chloride 109(H) 98 - 107 mmol/L 10/12/2022 9:04 PM [facility] CO2 16(L) 22 - 29 mmol/L 10/12/2022 9:04 PM [facility] Glucose 242(H) 70 - 115 mg/dL 10/12/2022 9:04 PM [facility] Calcium 9.1 8.4 - 10.2 mg/dL 10/12/2022 9:04 PM [facility] Protein Total 7.2 6.0 - 8.3 g/dL 10/12/2022 9:04 PM [facility] Albumin 3.5 3.4 - 5.0 g/dL 10/12/2022 9:04 PM [facility] Bilirubin Total 0.3 0.2 - 1.2 mg/dL 10/12/2022 9:04 PM [facility] Alkaline Phosphatase 76 40 - 150 U/L 10/12/2022 9:04 PM [facility] ALT 20 5 - 55 U/L 10/12/2022 9:04 PM [facility] AST 14 5 - 34 U/L 10/12/2022 9:04 PM [facility] Anion Gap 15 8 - 18 10/12/2022 9:04 PM [facility] BUN/Creatinine Ratio 25(H) 7 - 23 10/12/2022 9:04 PM [facility] Osmolality Calculated 296 270 - 300 mOsm/kg 10/12/2022 9:04 PM [facility] Albumin/Globulin Ratio 0.9(L) 1.1 - 2.3 10/12/2022 9:04 PM [facility] eGFR by CKD-EPI 57(L) >=90 mL/min/1.7 3 m2 10/12/2022 9:04 PM [facility] Blood BLOOD SPECIMEN / Unknown Venipuncture / Unknown 10/12/2022 8:21 PM CDT 10/12/2022 8:35 PM [facility] Ketan Snowden MD LAB - CHEMISTRY [place] [facility] Organization Address City/State/ZIP Co de Phone Number [facility] [address] [address], [facility] [phone] * CT ANGIO BRAIN NECK STROKE (10/12/2022 7:42 PM CDT) Anatomical Region Laterality Modality Head Computed Tomogra phy 10/12/2022 7:52 PM CDT Impressions 10/12/2022 8:51 PM CDT IMPRESSION: 1.Re-demonstrated long segment occlusion of the right ICA from the carotid bulb to the terminus with reconstitution of flow to the right SHEA and MCA via the mi[place] of Arvizu. Diminished opacification of the right [...] communication. Report dictated by Gilbert Morrow MD (residential tech). I, Zelda Willams MD, PhD have personally reviewed and interpreted this examination/study. > Interpreting Provider: Zelda Willams MD, PhD on 10/12/2022 8:51 PM Narrative 10/12/2022 8:51 PM CDT EXAM: CT ANGIO BRAIN NECK STROKE, DATE/TIME OF EXAM: 10/12/2022 7:42 PM, LOCATION: ??[facility] HISTORY: Code Stroke EXAMINATION: CT angiogram images [...] right middle cerebral artery (MCA) via the miami of Arvizu/patent anterior communicating artery. Diminished opacification [...] DATE/TIME OF EXAM: 10/12/2022 7:42 PM, LOCATION: [facility] HISTORY: Code Stroke EXAMINATION: CT angiogram images of the head and neck acquired with intravenous contrast. Multiplanar reformations acquired. TECHNIQUE: CT angiography of the head and neck was obtained after administration of intravenous contrast. Three dimensional postprocessing was performed by the technologist and sent to the workstation forreview. NASCET criteria was utilized for evaluation of [...] and right middle cerebral artery (MCA)via the miami of Arvizu/patent anterior communicating artery. Diminished opacification [...] to the right SHEA andMCA via the miami of Arvizu. Diminished opacification of the right [...] communication. Report dictated by Gilbert Morrow MD (residential tech). I, Zelda Willams MD, PhD have personally reviewed and interpreted this examination/study. > Interpreting Provider: Zelda Willams MD, PhD on 10/12/2022 8:51 PM Ketan Snowden MD CT ORDERABLES * CT BRAIN - Stroke (10/12/2022 7:32 PM CDT) Anatomical Region Laterality Modality Head [...] DATE/TIME OF EXAM: 10/12/2022 7:32 PM, LOCATION: ??[facility] HISTORY: Code Stroke EXAMINATION: CT scan of [...] infarct involving the right posterior cerebral artery (BOARD MEMBER) vascular territory. Multiple small chronic lacunes of [...] STROKE, DATE/TIME OF EXAM: 10/12/2022 7:32 PM, LOCATION:[facility] HISTORY: Code Stroke EXAMINATION: CT scan of [...] infarct involving the right posterior cerebral artery (BOARD MEMBER) vascular territory. Multiple small chronic lacunes of [...] PM Ketan Snowden MD CT ORDERABLES * (ABNORMAL) GLUCOSE - POINT OF CARE (10/12/2022 7:19 PM CDT) Glucose WB/POC 285(H) 70 - 115 mg/dL 10/13/2022 6:26 AM CDT [facility] Specimen Type Cap Fingerstick 2022 6:26 AM CDT [facility] Blood BLOOD SPECIMEN / Unknown 10/12/2022 7:19 PM CDT 10/13/2022 6:25 AM CDT Provider Unknown LAB - POINT OF CARE ORDERABLES [facility] [address] [place] [address], [facility] [phone] documented in this encounter Visit Diagnoses Diagnosis Ischemic stroke (HCC)- Primary Ischemic stroke (HCC) Weakness Other malaise and fatigue Left-sided weakness Muscle weakness (generalized) Dyspnea, unspecified type Respiratory acidosis Acidosis Dysphagia, unspecified type Bradycardia Other specified cardiac dysrhythmias Carotid occlusion, right Occlusion and stenosis of carotid artery without mention of cerebral infarction Coronary artery disease involving hopland coronary artery of hopland heart without angina pectoris JAMES (obstructive sleep apnea) Obstructive sleep apnea (adult) (pediatric) Chronic obstructive pulmonary disease, unspecified COPD type (HCC) Type 2 diabetes mellitus with stage 2 chronic kidney disease, with long-term current use of insulin ([facility]) Smoker Tobacco use disorder Carotid stenosis, left Occlusion and stenosis of carotid artery without mention of cerebral infarction Weakness Other malaise and fatigue DM2 (diabetes mellitus, type 2) ([facility]) Type II or unspecified type diabetes mellitus without mention of complication, not stated as uncontrolled Hx of completed stroke Transient ischemic attack (TIA), and cerebral infarction without residual deficits Primary hypertension Unspecified essential hypertension Smoker Tobacco use disorder Carotid occlusion, right Occlusion and stenosis of carotid artery without mention of cerebral infarction Carotid stenosis, left Occlusion and stenosis of carotid artery without mention of cerebral infarction Coronary artery disease Coronary atherosclerosis of unspecified type of vessel, hopland or graft JAMES (obstructive sleep apnea) Obstructive sleep apnea (adult) (pediatric) COPD (chronic obstructive pulmonary disease) ([facility]) Chronic airway obstruction, not elsewhere classified Stage 3 chronic kidney disease ([facility]) Peritonsillar abscess Dyspnea Other dyspnea and respiratory abnormality Respiratory acidosis Acidosis documented in this encounter Administered Medications Inactive Administered Medications - up to 3 most recent administrations Medication Order MAR Action Action Date Dose Rate Site 0.9% NaCl infusion at 50 mL/hr, Intravenous, CONTINUOUS, Starting on Wed10/12/22 at 2000, Until Wed10/13/22 at 0849, .. Right AC preferred site. Current Rate 10/13/2022 5:18 AM CDT 50 mL/hr $ New Bag/Syringe 10/13/2022 2:33 AM CDT 50 mL/ hr $ New Bag/Syringe 10/12/2022 8:26 PM CDT 50 mL/ hr 0.9% NaCl injection 10 mL 10 mL, Intracatheter, ONCE, 1 dose, On Wed10/12/22 at 1945, Flush line after tenecteplae administration $ Given 10/12/2022 7:35 PM CDT 10 mL 0.9% NaCl injection 10 mL 10 mL, Intracatheter, INTRA-PROCEDURE MULTIPLE, Starting on Wed10/14/22 at 1552, Until Wed10/14/22 at 1951, For Echo Procedure - Per Protocol Agitate saline before administration. $ Given 10/14/2022 4:42 PM CDT 10 mL 0.9% NaCl injection 3 mL 3 mL, Intracatheter, EVERY 8 HOURS, First dose on Wed10/12/22 at 2200, Until Discontinued, Flush peripheral IV catheter with 3 mL of normal saline every 8 hours. $ Given 10/21/2022 6:30 AM CDT 3 mL $ Given 10/20/2022 11:00 PM CDT 3 mL $ Given 10/19/2022 2:24 PM CDT 3 mL 0.9% NaCl injection 3 mL 3 mL, Intracatheter, EVERY 8 HOURS, First dose on 10/12/22 at 2200, Until Discontinued $ Given 10/21/2022 6:32 AM CDT 3 mL $ Given 10/20/2022 10:49 PM CDT 3 mL $ Given 10/20/2022 5:47 AM CDT 3 mL acetaminophen (Tylenol) suppository 650 mg 650 mg, Rectal, EVERY 4 HOURS PRN, Moderate Pain, Severe Pain, Starting on 10/12/22 at 2315, Until Amira 10/15/22 at 0913, Patient preference for lesser PRN pain meds may be honored when the patient requests a less strong medication, a lower dose, or a less intrusive route of administration when the lesser drug, dose and route have been ordered for the patient. This patient request must be documented in the MAR. $ Given 10/12/2022 11:30 PM CDT 650 mg acetaminophen (Tylenol) suppository 650 mg 650 mg, Rectal, EVERY 4 HOURS PRN, Headache, Severe Pain, Moderate Pain, Mild Pain, Starting on Amira 10/15/22 at 0911, Until 10/17/22 at 0352, Patient preference for lesser PRN pain meds may be honored when the patient requests a less strong medication, a lower dose, or a less intrusive route of administration when the lesser drug, dose and route have been ordered for the patient. This patient request must be documented in the MAR. $ Given 10/16/2022 9:49 AM CDT 650 mg acetaminophen (Tylenol) tablet 650 mg 650 mg, Oral, EVERY 6 HOURS PRN, Headache, Severe Pain, Moderate Pain, Mild Pain, Starting on Amira 10/15/22 at 0911, Until 10/17/22 at 0352, Patient preference for lesser PRN pain meds may be honored when the patient requests a less strong medication, a lower dose, or a less intrusive route of administration when the lesser drug, dose and route have been ordered for the patient. This patient request must be documented in the MAR. $ Given 10/16/2022 4:24 PM CDT 650 mg acetaminophen (Tylenol) tablet 650 mg 650 mg, Enteral Tube, EVERY 6 HOURS PRN, Headache, Severe Pain, Moderate Pain, Mild Pain, Starting on Wed10/17/22 at 0350, Until Wed10/21/22 at 1235, Patient preference for lesser PRN pain meds may be honored when the patient requests a less strong medication, a lower dose, or a less intrusive route of administration when the lesser drug, dose and route have been ordered for the patient. This patient request must be documented in the MAR. $ Given 10/21/2022 8:22 AM CDT 650 mg NG Tube $ Given 10/20/2022 8:24 PM CDT 650 mg NG Tube $ Given 10/20/2022 4:49 AM CDT 650 mg NG Tube acetaminophen (Tylenol) tablet 650 mg 650 mg, Oral, EVERY 6 HOURS PRN, Headache, Severe Pain, Moderate Pain, Mild Pain, Starting on Wed10/21/22 at 1235, Until Wed10/27/22 at 0950, Patient preference for lesser PRN pain meds may be honored when the patient requests a less strong medication, a lower dose, or a less intrusive route of administration when the lesser drug, dose and route have been ordered for the patient. This patient request must be documented in the MAR. $ Given 10/27/2022 8:41 AM CDT 650 m g $ Given 10/26/2022 6:16 PM CDT 650 mg $ Given 10/26/2022 8:03 AM CDT 650 mg acetaminophen (Tylenol) tablet 650 mg 650 mg, Oral, EVERY 8 HOURS, First dose (after last modification) on Wed10/27/22 at 1400, Until Discontinued, Patient preference for lesser PRN pain meds may be honored when the patient requests a less strong medication, a lower dose, or a less intrusive route of administration when the lesser drug, dose and route have been ordered for the patient. This patient request must be documented in the MAR. $ Given 10/28/2022 1:13 PM CDT 650 m g $ Given 10/28/2022 6:09 AM CDT 650 mg $ Given 10/27/2022 8:50 PM CDT 650 mg albuterol-ipratropium (Duo-Neb) nebulizer solution 3 mL 3 mL, Inhalation, EVERY 4 HOURS, First dose on Wed10/13/22 at 1200, Until Discontinued $ Given 10/14/2022 4:11 PM CDT 3 mL $ Given 10/14/2022 11:38 AM CDT 3 mL $ Given 10/14/2022 9:28 AM CDT 3 mL albuterol-ipratropium (Duo-Neb) nebulizer solution 3 mL 3 mL, Inhalation, EVERY 6 HOURS, First dose (after last modification) on Wed10/15/22 at 0000, Until Discontinued $ Given 10/21/2022 5:27 AM CDT 3 mL $ Given 10/21/2022 12:49 AM CDT 3 mL $ Given 10/20/2022 5:16 PM CDT 3 mL albuterol-ipratropium (Duo-Neb) nebulizer solution 3 mL 3 mL, Inhalation, EVERY 4 HOURS PRN, Shortness of Breath, Wheezing, Starting on Wed10/21/22 at 0730, Until Wed10/28/22 at 2110 $ Given 10/27/2022 8:25 AM CDT 3 mL amLODIPine (Norvasc) tablet 10 mg 10 mg, Enteral Tube, DAILY, First dose on Wed10/16/22 at 1245, Until Discontinued $ Given 10/21/2022 8:22 AM CDT 10 mg NG Tu be $ Given 10/20/2022 8:29 AM CDT 10 mg NG Tube $ Given 10/19/2022 8:19 AM CDT 10 mg NG Tube amLODIPine (Norvasc) tablet 10 mg 10 mg, Oral, DAILY, First dose (after last modification) on Wed10/22/22 at 0900, Until Discontinued $ Given 10/28/2022 8:53 AM CDT 10 mg $ Given 10/27/2022 9:37 AM CDT 10 mg $ Given 10/26/2022 8:04 AM CDT 10 mg ampicillin-sulbactam (Unasyn) 3 g in 0.9% NaCl IV 100 mL IVPB 3 g, at 200 mL/hr, Intravenous, EVERY 6 HOURS, 28 doses, First dose (after last modification) on Wed10/13/22 at 0000, Last dose on Wed10/19/22 at 1800, Indication for anti-infective therapy: Documented infection, Site of anti-infective therapy: Skin/soft tissue $ New Bag/Syringe 10/19/2022 5:30 PM CDT 3 g 200 mL/hr $ New Bag/Syringe 10/19/2022 12:36 PM CDT 3 g 200 m L/hr $ New Bag/Syringe 10/19/2022 6:14 AM CDT 3 g 200 mL /hr artificial tears ophthalmic ointment Each Eye, EVERY 8 HOURS, First dose on Wed10/13/22 at 0115, Until Discontinued $ Given 10/20/2022 1:35 PM CDT $ Given 10/20/2022 5:47 AM CDT $ Given 10/19/2022 8:40 PM CDT aspirin chew tablet 81 mg 81 mg, Enteral Tube, DAILY, First dose on Wed10/14/22 at 1345, Until Discontinued $ Given 10/21/2022 8:22 AM CDT 81 mg NG Tu be $ Given 10/20/2022 8:28 AM CDT 81 mg NG Tube $ Given 10/19/2022 8:19 AM CDT 81 mg NG Tube aspirin chew tablet 81 mg 81 mg, Oral, DAILY, First dose (after last modification) on Wed10/22/22 at 0900, Until Discontinued $ Given 10/28/2022 8:52 AM CDT 81 mg $ Given 10/27/2022 9:37 AM CDT 81 mg $ Given 10/26/2022 8:03 AM CDT 81 mg aspirin suppository 300 mg 300 mg, Rectal, ONCE, 1 dose, On Wed10/15/22 at 1600 $ Given 10/15/2022 4:17 PM CDT 300 mg barium (Liquid E-Z-Paque) 60 % suspension Oral, ONCE, 1 dose, On Wed10/19/22 at 1045, . WASTE DISPOSAL INSTRUCTIONS: Black Bin Disposal required. $ Given - Contrast 10/19/2022 10:26 AM CDT 30 mL barium (Varibar) 40 % paste PSTE Oral, ONCE, 1 dose, On 10/19/22 at 1045 $ Given - Contrast 10/19/2022 10:26 AM CDT 30 mL bismuth subsalicylate (Pepto-Bismol) chew tablet 524 mg 524 mg (2 tablet), Oral, PRN, Diarrhea, Starting on Wed10/21/22 at 1831, Until Wed10/28/22 at 2110, Tablets should be chewed and swallowed. Do not exceed 8 doses per day. $ Given 10/23/2022 8:59 AM CDT 524 mg $ Given 10/23/2022 2:34 AM CDT 524 mg $ Given 10/21/2022 10:01 PM CDT 524 mg budesonide (Pulmicort) nebulizer suspension 500 mcg 500 mcg, Inhalation, DAILY, First dose on Wed10/13/22 at 1030, Until Discontinued, Protect from light. $ Given 10/22/2022 10:30 AM CDT 500 mcg $ Given 10/20/2022 11:19 AM CDT 500 mcg $ Given 10/19/2022 12:15 PM CDT 500 mcg budesonide-formoterol (Symbicort) 160-4.5 MCG/ACT inhaler 2 puff 2 puff, Inhalation, 2 TIMES DAILY, First dose on Wed10/22/22 at 1400, Until Discontinued, Rinse mouth after usage . WASTE DISPOSAL INSTRUCTION: Send to Pharmacy for Disposal. . $ Given 10/28/2022 8:53 AM CDT 2 puffs $ Given 10/27/2022 8:48 PM CDT 2 puffs $ Given 10/27/2022 8:31 AM CDT 2 puffs calcium carbonate (Tums) chew tablet 2 tablet 2 tablet, Oral, EVERY 2 HOURS PRN, Heartburn, Starting on Wed10/27/22 at 1044, Until Wed10/28/22 at 2110 $ Given 10/27/2022 11:22 AM CDT 2 tablets chlorhexidine (Peridex) 0.12 % oral solution 15 mL 15 mL, Mouth/Throat, 2 TIMES DAILY, First dose on Wed10/13/22 at 0115, Until Discontinued, Swab oral mucosa for 30 seconds. Do not brush teeth immediately after use. . WASTE DISPOSAL INSTRUCTIONS: Black Bin Disposal required. $ Given 10/14/2022 8:45 PM CDT 15 mL $ Given 10/14/2022 8:32 AM CDT 15 mL $ Given 10/13/2022 7:59 PM CDT 15 mL clopidogrel (plaVIX) tablet 75 mg 75 mg, Enteral Tube, DAILY, 90 doses, First dose on Wed10/20/22 at 1015, Last dose on Wed01/17/23 at 0900 $ Given 10/21/2022 8:22 AM CDT 75 mg NG Tube $ Given 10/20/2022 12:20 PM CDT 75 mg N G Tube clopidogrel (plaVIX) tablet 75 mg 75 mg, Oral, DAILY, 88 doses, First dose (after last modification) on Wed10/22/22 at 0900, Last dose on Wed01/17/23 at 0900 $ Given 10/28/2022 8:53 AM CDT 75 mg $ Given 10/27/2022 9:37 AM CDT 75 mg $ Given 10/26/2022 8:03 AM CDT 75 mg dexAMETHasone (Decadron) injection 10 mg 10 mg, Intravenous, EVERY 8 HOURS, 3 doses, First dose on Wed10/13/22 at 1000, Last dose on Wed10/14/22 at 0200 $ Given 10/14/2022 2:11 AM CDT 10 mg $ Given 10/13/2022 5:44 PM CDT 10 mg $ Given 10/13/2022 9:56 AM CDT 10 mg dexAMETHasone (Decadron) injection 10 mg 10 mg, Intravenous, ONCE, 1 dose, On Wed10/14/22 at 2000 $ Given 10/14/2022 7:58 PM CDT 10 mg dexmedeTOMIDine (Precedex) 400 mcg in 100 mL NS infusion premix 0-1.5 mcg/kg/hr ? 105.7 kg (0-39.6375 mL/hr, rounded to 0-39.64 mL/hr), Intravenous, CONTINUOUS, Starting on Wed10/15/22 at 0845, Until Wed10/15/22 at 0906, Above RASS goal: Assess and treat pain first if CPOT greater than 2. If agitation persists Increase rate per order. At RASS goal and no change in 4 hours: Decrease rate per order. Below RASS goal (unarousable): Hold infusion until at goal RASS then restart at 50% previous rate. If significant hemodynamic changes notify physician for instructions. Notify physician for inability to reach goals despite maximal dosage. Note: The CPOT goal should be achieved first with the use of the ordered analgesic medication prior to targeting RASS goal with the sedative. Hold medication and call physician if HR less than 40 bpm, Titration Parameters: Standard Parameters, Indication: Sedation, Initiate infusion at: 0.2 mcg/kg/hr, Titrate infusion by: 0.1 mcg/kg/hr, Titrate every: 30 minutes, Notify physician if: Unachievable RASS goal despite max dose, Titration Priority: 1st $ New Bag/Syringe 10/15/2022 8:26 AM CDT 0.2 mcg/kg/hr 5.29 mL/hr dextrose 10 % IV bolus 12.5 g, at 468.75 mL/hr, Intravenous, PRN, Other, Bedside Glucose less than 70 mg/dL -If NOT able to eat and/or NPO and with IV Access, Starting on Wed10/12/22 at 2219, Until Wed10/28/22 at 2109, If NOT able to eat and/or NPO and with IV Access: For Bedside Glucose 54-69 mg/dL give 12.5 g Dextrose IV STAT For Bedside Glucose LESS than 54 mg/dl verify with a second Bedside Glucose (from a different site) and give 25 g Dextrose IV STAT Re-check and Re-treat blood glucose EVERY , 10-25 minutes until blood glucose GREATER than or equal to 80 mg/dl. NOTIFY PROVIDER OF HYPOGLYCEMIC EVENT. dextrose 10 % IV bolus 25 g, at 937.5 mL/hr, Intravenous, PRN, Other, Bedside Glucose less than 70 mg/dL -If NOT able to eat and/or NPO and with IV Access, Starting on Wed10/12/22 at 2219, Until Wed10/28/22 at 2109, If NOT able to eat and/or NPO and with IV Access: For Bedside Glucose 54-69 mg/dL - give 12.5 g Dextrose IV STAT For Bedside Glucose LESS than 54 mg/dl - verify with a second Bedside Glucose (from a different site) and give 25 g Dextrose IV STAT Re-check and Re-treat blood glucose EVERY - 10-25 minutes until blood glucose GREATER than or equal to 80 mg/dl. - If repeat bedside glucose 54-79 give 12.5 g Dextrose IV STAT NOTIFY PROVIDER OF HYPOGLYCEMIC EVENT. empagliflozin (Jardiance) tablet 10 mg 10 mg, Oral, DAILY, First dose on Amira 10/22/22 at 1230, Until Discontinued, Restricted to the indication of Heart Failure and/or CKD only due to risk of hypoglycemic when used for DM in acute care settings. Indication for use? Heart Failure $ Given 10/28/2022 8:53 AM CDT 10 mg $ Given 10/27/2022 9:37 AM CDT 10 mg $ Given 10/26/2022 8:04 AM CDT 10 mg etomidate (Amidate) injection 20 mg 20 mg, Intravenous, Once, 1 dose, On Wed10/14/22 at 1115, for ENT drainage of abscess (procedure) $ Given 10/14/2022 11:35 AM CDT 20 mg gabapentin (Neurontin) capsule 200 mg 200 mg, Oral, 3 TIMES DAILY, First dose on Wed10/27/22 at 1030, Until Discontinued $ Given 10/28/2022 1:14 PM CDT 200 mg $ Given 10/28/2022 8:52 AM CDT 200 mg $ Given 10/27/2022 8:50 PM CDT 200 mg glucagon (Glucagen) injection 1 mg 1 mg, Subcutaneous, PRN, Bedside Glucose less than 70 mg/dL - If NOT able to eat and/or NPO and withOUT IV Access, Starting on Wed10/12/22 at 2219, Until Wed10/28/22 at 211, If NOT able to eat and/or NPO and NO IV Access: For Bedside glucose 54-69 mg/dL - Give 1 mg subcutaneous For Bedside Glucose LESS than 54 mg/dl - verify with a second bedside glucose (from a different site) - Give 1 mg subcutaneous Re-check and Re-treat blood glucose EVERY 10-25 minutes until blood glucose GREATER than or equal to 80 mg/dl. NOTIFY PROVIDER OF HYPOGLYCEMIC EVENT. Reconstitute vial with 1 mL of sterile water for injection for a final concentration of 1 mg/mL; shake vial gently; use immediately and discard unused portion glucose (Diabetic Use) (Dex4 Glucose) oral liquid Oral, PRN, Other, Bedside Glucose less than 70 mg/dL -If able to eat and does not have swallowing difficulties, Starting on Wed10/12/22 at 2219, Until Wed10/28/22 at 211, If able to eat and can swallow thin liquids: For Bedside Glucose 54 - 69 mg/dL Give 15 grams of oral carbohydrates - 1 glucose liquid (see MAR) If patient refuses glucose liquid, then offer: - 4 ounces of fruit juice OR - 4 ounces non-diet soda OR - 8 ounces of fat-free milk For Bedside Glucose LESS than 54 mg/dL - verify with a second Bedside Glucose (from a different site) - If pt is symptomatic, do not delay treatment - If accuracy of the POC glucose is in question, confirm glucose with a STAT laboratory test. Give 30 grams of oral carbohydrates - 2 glucose liquid (see MAR) If patient refuses glucose liquid, then offer: - 8 ounces of fruit juice OR - 8 ounces non-diet soda OR - 16 ounces of fat-free milk Re-check and Re-treat blood glucose EVERY 10-25 minutes until blood glucose GREATER than or equal to 80 mg/dl. - If on recheck, bedside glucose 54-79 mg/dL - Give 15 grams of oral carbohydrates (see above for choices) NOTIFY PROVIDER OF HYPOGLYCEMIC EVENT. glucose (Diabetic Use) oral gel Oral, PRN, Other, Bedside Glucose less than 70 mg/dL -If able to eat and does not have swallowing difficulties, Starting on Wed10/12/22 at 2219, Until Wed10/28/22 at 2110, If able to eat and is better able to swallow gel: For Bedside Glucose 54 - 69 mg/dL Give 15 grams of oral carbohydrates - 1 glucose gel (see MAR) If patient refuses glucose gel, then offer: - 4 ounces of fruit juice OR - 4 ounces non-diet soda OR - 8 ounces of fat-free milk For Bedside Glucose LESS than 54 mg/dL verify with a second Bedside Glucose (from a different site) - If pt is symptomatic, do not delay treatment - If accuracy of the POC glucose is in question, confirm glucose with a STAT laboratory test Give 30 grams of oral carbohydrates - 2 glucose gels (see MAR) If patient refuses glucose gel, then offer: - 8 ounces of fruit juice OR - 8 ounces non-diet soda OR - 16 ounces of fat-free milk Re-check and Re-treat blood glucose EVERY 10-25 minutes until blood glucose GREATER than or equal to 80 mg/dl. - If on recheck, bedside glucose 54-79 mg/dL - Give 15 grams of oral carbohydrates (see above for choices) NOTIFY PROVIDER OF HYPOGLYCEMIC EVENT. glucose chew tablet 4 tablet 4 tablet (16 g), Oral, PRN, Other, Bedside Glucose less than 70 mg/dL -If able to eat and does not have swallowing difficulties, Starting on Wed10/12/22 at 2219, Until Wed10/28/22 at 2110, If able to eat and does not have swallowing difficulties: For Bedside Glucose 54 - 69 mg/dL Give 16 grams of oral carbohydrates - 4 glucose tabs (see MAR) If patient refuses glucose tabs, then offer: - 4 ounces of fruit juice OR - 4 ounces non-diet soda OR - 8 ounces of fat-free milk For Bedside Glucose LESS than 54 mg/dL - verify with a second Bedside Glucose (from a different site) - If pt is symptomatic, do not delay treatment - If accuracy of the POC glucose is in question, confirm glucose with a STAT laboratory test. Give 32 grams of oral carbohydrates - 8 glucose tabs (see MAR) If patient refuses glucose gel, then offer: - 8 ounces of fruit juice OR - 8 ounces non-diet soda OR - 16 ounces of fat-free milk Re-check and Re-treat blood glucose EVERY 10-25 minutes until blood glucose GREATER than or equal to 80 mg/dl. - If on recheck, bedside glucose 54-79 mg/dL - Give 15 grams of oral carbohydrates (see above for choices). NOTIFY PROVIDER OF HYPOGLYCEMIC EVENT. heparin injection 5,000 Units 5,000 Units, Subcutaneous, EVERY 8 HOURS, First dose on Wed10/13/22 at 2200, Until Discontinued $ Given 10/28/2022 8:54 AM CDT 5,000 Units Abd Left Lower Quadrant $ Given 10/27/2022 9:03 PM CDT 5,000 Units A bd Right Lower Quadrant $ Given 10/27/2022 6:48 PM CDT 5,000 Units A bdominal Tissue insulin glargine (Lantus) pen 10 Units 10 Units, Subcutaneous, EVERY 24 HOURS, First dose (after last modification) on Wed10/17/22 at 0900, Until Discontinued, Obtain current Blood Glucose if necessary . WASTE DISPOSAL INSTRUCTIONS: Black Bin Disposal required. $ Given 10/19/2022 8:28 AM CDT 10 Units Abd Right Upper Quadrant $ Given 10/18/2022 9:12 AM CDT 10 Units Ab dominal Tissue $ Given 10/17/2022 8:36 AM CDT 10 Units Ab d Right Upper Quadrant insulin glargine (Lantus) pen 10 Units 10 Units, Subcutaneous, EVERY 24 HOURS, First dose (after last modification) on Wed10/20/22 at 0900, Until Discontinued, Obtain current Blood Glucose if necessary . WASTE DISPOSAL INSTRUCTIONS: Black Bin Disposal required. $ Given 10/28/2022 8:53 AM CDT 10 Units Abd Left Lower Quadr ant $ Given 10/27/2022 8:43 AM CDT 10 Units Le ft Arm $ Given 10/26/2022 8:15 AM CDT 10 Units Le ft Arm insulin glargine (Lantus) pen 15 Units 15 Units, Subcutaneous, EVERY 24 HOURS, First dose on Wed10/14/22 at 0900, Until Discontinued, Obtain current Blood Glucose if necessary . WASTE DISPOSAL INSTRUCTIONS: Black Bin Disposal required. $ Given 10/14/2022 8:50 AM CDT 15 Units Abdominal Tissue insulin glargine (Lantus) pen 15 Units 15 Units, Subcutaneous, EVERY 24 HOURS, First dose (after last modification) on Wed10/19/22 at 0845, Until Discontinued, Obtain current Blood Glucose if necessary . WASTE DISPOSAL INSTRUCTIONS: Black Bin Disposal required. $ Given 10/19/2022 8:39 AM CDT 15 Units Abd Left Upper Quadr ant insulin glargine (Lantus) pen 20 Units 20 Units, Subcutaneous, EVERY 24 HOURS, First dose (after last modification) on Wed10/15/22 at 0900, Until Discontinued, Obtain current Blood Glucose if necessary . WASTE DISPOSAL INSTRUCTIONS: Black Bin Disposal required. $ Given 10/16/2022 9:52 AM CDT 20 Units Abd Right Upper Quad rant $ Given 10/15/2022 9:32 AM CDT 20 Units Le ft Arm insulin lispro (HumaLOG;ADMelog) 100 UNIT/ML pen 0-12 Units 0-12 Units, Subcutaneous, EVERY 6 HOURS, First dose (after last modification) on Wed10/13/22 at 0600, Until Discontinued, DO NOT HOLD CORRECTION BOLUS EVEN IF PATIENT IS NPO. If patient is eating meals and has orders for Mealtime Insulin Bolus, combine and give at the same time. BEDSIDE GLUCOSE MUST BE PERFORMED AND DOCUMENTED WITHIN 30-60 MINUTES OF CORRECTION INSULIN ADMINISTRATION. BG (mg/dL) LESS than 70 = follow Hypoglycemic guidelines 150-200 = give 2 unit 201-250 = give 4 units, 251-300 = give 6 units 301-350 = give 8 units 351-400 = give 10 units and notify physician GREATER than 400 = give 12 units and notify physician $ Given 10/13/2022 5:35 AM CDT 4 Units Abd Left Upper Quadrant insulin lispro (HumaLOG;ADMelog) 100 UNIT/ML pen 0-12 Units 0-12 Units, Subcutaneous, 3 TIMES DAILY WITH MEALS, First dose on Wed10/21/22 at 0845, Until Discontinued, DO NOT HOLD CORRECTION BOLUS EVEN IF PATIENT IS NPO. If patient is eating meals and has orders for Mealtime Insulin Bolus, combine and give at the same time. BEDSIDE GLUCOSE MUST BE PERFORMED AND DOCUMENTED WITHIN 30-60 MINUTES OF CORRECTION INSULIN ADMINISTRATION. BG (mg/dL) LESS than 70 = Follow Hypoglycemic guidelines 150-200 = give 2 units 201-250 = give 4 units, 251-300 = give 6 units 301-350 = give 8 units 351-400 = give 10 units and notify physician GREATER than 400 = give 12 units and notify physician $ Given 10/28/2022 1:13 PM CDT 2 Units Abd Left Lower Quadrant $ Given 10/27/2022 6:47 PM CDT 1 Units Le ft Arm $ Given 10/27/2022 12:44 PM CDT 2 Units L eft Arm insulin lispro (HumaLOG;ADMelog) 100 UNIT/ML pen 0-24 Units 0-24 Units, Subcutaneous, EVERY 4 HOURS, First dose (after last modification) on Wed10/13/22 at 1200, Until Discontinued, DO NOT HOLD CORRECTION BOLUS EVEN IF PATIENT IS NPO. If patient is eating meals and has orders for Mealtime Insulin Bolus, combine and give at the same time. BEDSIDE GLUCOSE MUST BE PERFORMED AND DOCUMENTED WITHIN 30-60 MINUTES OF CORRECTION INSULIN ADMINISTRATION. BG (mg/dL) LESS than 70 = follow Hypoglycemic guidelines 150-200 = give 4 unit 201-250 = give 8 units, 251-300 = give 12 units 301-350 = give 18 units 351-400 = give 20 units and notify physician GREATER than 400 = give 24 units and notify physician $ Given 10/20/2022 1:25 PM CDT 12 Units Left Arm $ Given 10/20/2022 8:29 AM CDT 4 Units Ri ght Arm $ Given 10/19/2022 8:36 PM CDT 4 Units Ri ght Arm insulin lispro (HumaLOG;ADMelog) 100 UNIT/ML pen 0-6 Units 0-6 Units, Subcutaneous, EVERY 6 HOURS, First dose (after last modification) on Wed10/12/22 at 2300, Until Discontinued, DO NOT HOLD CORRECTION BOLUS EVEN IF PATIENT IS NPO. If patient is eating meals and has orders for Mealtime Insulin Bolus, combine and give at the same time. BEDSIDE GLUCOSE MUST BE PERFORMED AND DOCUMENTED WITHIN 30-60 MINUTES OF CORRECTION INSULIN ADMINISTRATION. BG (mg/dL) LESS than 70 = follow Hypoglycemic guidelines 150-200 = give 1 unit 201-250 = give 2 units, 251-300 = give 3 units 301-350 = give 4 units 351-400 = give 5 units and notify physician GREATER than 400 = give 6 units and notify physician $ Given 10/13/2022 3:03 AM CDT 3 Units Abd Right Lower Quadrant iopamidol (Isovue 370) 76 % contrast Intravenous, CONTRAST ONCE, Starting on Wed10/12/22 at 1918, Until Wed10/14/22 at 1917 $ Given - Contrast 10/12/2022 7:31 PM CDT 85 mL iopamidol (Isovue 370) 76 % contrast Intravenous, CONTRAST ONCE, Starting on Wed10/13/22 at 0055, Until Wed10/13/22 at 0128 $ Given - Contrast 10/13/2022 12:57 AM CDT 100 mL iopamidol (Isovue 370) 76 % contrast Intravenous, CONTRAST ONCE, Starting on Wed10/13/22 at 0127, Until Wed10/15/22 at 0126 $ Given - Contrast 10/13/2022 1:28 AM CDT 75 mL isolyte-S pH 7.4 bolus 1,000 mL, at 983.61 mL/hr, Administer over 61 Minutes, ONCE, 1 dose, On Wed10/15/22 at 0930 $ New Bag/Syringe 10/15/2022 9:39 AM CDT 1,000 mL 983.61 mL/hr isolyte-S pH 7.4 infusion at 100 mL/hr, Intravenous, CONTINUOUS, Starting on Wed10/15/22 at 1615, Until Wed10/16/22 at 1614 $ New Bag/Syringe 10/16/2022 2:41 AM CDT 100 mL/hr $ New Bag/Syringe 10/15/2022 4:19 PM CDT 100 mL /hr labetalol (Normodyne; Trandate) injection 10 mg 10 mg, Intravenous, EVERY 15 MIN PRN, Hypertension, see nursing instructions, Starting on Wed10/12/22 at 1936, Until Wed10/14/22 at 1026, IVP over 1-2 minutes until target blood pressure goal is reached. If BP out of goal range after 2 doses may use alternative agent or contact physician. Cumulative dose not to exceed 300 mg/24 hrs. Exclusion criteria for Labetolol: Asthma, Cardiac Failure, Heart Block, Heart rate less than 60, or Severe Cardiac Abnormalites. $ Given 10/12/2022 10:50 PM CDT 10 mg $ Given 10/12/2022 10:25 PM CDT 10 mg $ Given 10/12/2022 9:18 PM CDT 10 mg lactated ringers infusion at 100 mL/hr, Intravenous, CONTINUOUS, Starting on Wed10/20/22 at 0830, Until Wed10/21/22 at 0729 $ New Bag/Syringe 10/21/2022 4:29 AM CDT 100 mL/hr $ New Bag/Syringe 10/20/2022 7:41 PM CDT 100 mL /hr $ New Bag/Syringe 10/20/2022 8:51 AM CDT 100 mL /hr lidocaine (Lidoderm) 5 % patch 1 patch 1 patch, Administer over 12 Hours, EVERY 24 HOURS, First dose on Wed10/19/22 at 2315, Until Discontinued, Apply to lower back and remove patch after a max of 12 hours of application within a 24 hour period. $ Applied 10/27/2022 8:50 PM CDT 1 patch Right Neck $ Applied 10/26/2022 8:24 PM CDT 1 patch Ba ck $ Applied 10/25/2022 8:56 PM CDT 1 patch Ba ck loperamide (Imodium) capsule 2 mg 2 mg, Oral, ONCE, 1 dose, On Wed10/20/22 at 2030, Max dose 16mg/day $ Given 10/20/2022 8:24 PM CDT 2 mg loperamide (Imodium) capsule 2 mg 2 mg, Oral, 4 TIMES DAILY PRN, Diarrhea, Starting on Wed10/23/22 at 1459, Until Wed10/28/22 at 2110, Max dose 16mg/day $ Given 10/24/2022 10:41 PM CDT 2 mg $ Given 10/23/2022 9:27 PM CDT 2 mg $ Given 10/23/2022 4:28 PM CDT 2 mg losartan (Cozaar) tablet 25 mg 25 mg, Enteral Tube, DAILY, First dose on Wed10/17/22 at 0915, Until Discontinued $ Given 10/19/2022 8:19 AM CDT 25 mg NG Tu be $ Given 10/18/2022 9:11 AM CDT 25 mg G Tube $ Given 10/17/2022 10:33 AM CDT 25 mg N G Tube losartan (Cozaar) tablet 25 mg 25 mg, Oral, Once, 1 dose, On Wed10/19/22 at 1215 $ Given 10/19/2022 12:42 PM CDT 25 mg losartan (Cozaar) tablet 50 mg 50 mg, Enteral Tube, DAILY, First dose (after last modification) on Wed10/20/22 at 0900, Until Discontinued $ Given 10/21/2022 8:22 AM CDT 50 mg NG Tube $ Given 10/20/2022 8:29 AM CDT 50 mg NG Tube losartan (Cozaar) tablet 50 mg 50 mg, Oral, DAILY, First dose (after last modification) on Wed10/22/22 at 0900, Until Discontinued $ Given 10/28/2022 8:52 AM CDT 50 mg $ Given 10/27/2022 9:37 AM CDT 50 mg $ Given 10/26/2022 8:03 AM CDT 50 mg magnesium sulfate 2 g in 50 mL bolus 2 g, at 25 mL/hr, Administer over 120 Minutes, Intravenous, ONCE, 1 dose, On Wed10/13/22 at 0315, Infuse at 1 gm/hr $ New Bag/Syringe 10/13/2022 3:01 AM CDT 2 g 25 mL/hr magnesium sulfate 2 g in 50 mL bolus 2 g, at 25 mL/hr, Administer over 120 Minutes, Intravenous, ONCE, 1 dose, On Wed10/20/22 at 0445, Infuse at 1 gm/hr $ New Bag/Syringe 10/20/2022 4:33 AM CDT 2 g 25 mL/hr melatonin tablet 8 mg 8 mg, Enteral Tube, DAILY AT 2029, First dose on Wed10/17/22 at 2030, Until Discontinued $ Given 10/20/2022 8:24 PM CDT 8 mg NG Tube $ Given 10/19/2022 8:39 PM CDT 8 mg NG Tube $ Given 10/18/2022 8:37 PM CDT 8 mg NG Tube melatonin tablet 8 mg 8 mg, Oral, DAILY AT 2029, First dose (after last modification) on Wed10/21/22 at 2030, Until Discontinued $ Given 10/27/2022 8:50 PM CDT 8 mg $ Given 10/26/2022 8:24 PM CDT 8 mg $ Given 10/25/2022 8:55 PM CDT 8 mg morphine injection 4 mg 4 mg, Intravenous, ONCE, 1 dose, On Wed10/12/22 at 2100, Patient preference for lesser PRN pain meds may be honored when the patient requests a less strong medication, a lower dose, or a less intrusive route of administration when the lesser drug, dose and route have been ordered for the patient. This patient request must be documented in the MAR. $ Given 10/12/2022 8:42 PM CDT 4 mg nicotine (Nicoderm CQ) patch 21 mg 21 mg, Administer over 24 Hours, DAILY, First dose on Wed10/13/22 at 0900, Until Discontinued, Remove old patch before applying new patch. This patch may contain metal and is not compatible with MRI. Notify radiology of patch location upon arrival to MRI. . WASTE DISPOSAL INSTRUCTIONS: P-Listed item. Special Disposal Required. . $ Applied 10/27/2022 9:40 AM CDT 21 mg Right Arm $ Applied 10/26/2022 8:19 AM CDT 21 mg Le ft Arm $ Applied 10/25/2022 8:39 AM CDT 21 mg Ri ght Arm oxyCODONE (immediate release) (Roxicodone) tablet 5 mg 5 mg, Oral, EVERY 6 HOURS PRN, Severe Pain, Starting on Wed10/23/22 at 1458, Until Wed10/26/22 at 1239, 2nd option for severe pain if tylenol ineffective Patient preference for lesser PRN pain meds may be honored when the patient requests a less strong medication, a lower dose, or a less intrusive route of administration when the lesser drug, dose and route have been ordered for the patient. This patient request must be documented in the MAR. $ Given 10/26/2022 11:13 AM CDT 5 mg $ Given 10/26/2022 4:55 AM CDT 5 mg $ Given 10/25/2022 8:55 PM CDT 5 mg oxyCODONE (immediate release) (Roxicodone) tablet 5 mg 5 mg, Oral, EVERY 4 HOURS PRN, Severe Pain, Starting on Wed10/26/22 at 1245, Until Wed10/28/22 at 2110, 2nd option for severe pain if tylenol ineffective Patient preference for lesser PRN pain meds may be honored when the patient requests a less strong medication, a lower dose, or a less intrusive route of administration when the lesser drug, dose and route have been ordered for the patient. This patient request must be documented in the MAR. $ Given 10/28/2022 6:06 PM CDT 5 mg $ Given 10/28/2022 8:56 AM CDT 5 mg $ Given 10/27/2022 5:59 AM CDT 5 mg pantoprazole (Protonix) injection 40 mg 40 mg, Intravenous, DAILY, First dose on Wed10/13/22 at 0900, Until Discontinued, For every 40 mg of pantoprazole mix with 10 mL Normal Saline (final concentration = 4 mg/mL). Inject SLOWLY over 2 min. $ Given 10/14/2022 8:32 AM CDT 40 mg $ Given 10/13/2022 8:05 AM CDT 40 mg perflutren lipid microsphere (Definity) injection 0.5 mL 0.5 mL, Intravenous, INTRA-PROCEDURE MULTIPLE, 6 doses, Starting on Wed10/14/22 at 1552, Until Wed10/21/22 at 0730, For Echo Procedure - Per Protocol Give slowly Shake well before using. $ Given 10/14/2022 4:42 PM CDT 0.5 mL polyethylene glycol 3350 (Miralax) packet 17 g 17 g, Enteral Tube, DAILY, First dose on Wed10/13/22 at 2100, Until Discontinued, Mix in 8 ounces of water, juice, soda, coffee or tea prior to administration $ Given 10/14/2022 8:33 AM CDT 17 g OG Tube polyethylene glycol 3350 (Miralax) packet 17 g 17 g, Oral, DAILY PRN, Constipation, Starting on Wed10/21/22 at 1235, Until Wed10/28/22 at 2110, Mix in 8 ounces of water, juice, soda, coffee or tea prior to administration potassium - sodium phosphates (Phos-Nak) powder 1 packet 1 packet, Enteral Tube, 3 TIMES DAILY WITH MEALS, 3 doses, First dose on Wed10/17/22 at 0130, Last dose on Wed10/17/22 at 1200, Mix contents of packet in 6 to 8 ounces of water and drink, may taste better if cold Contains Phos 8 mmol, K+ 7 mEq, Na 7 mEq per packet $ Given 10/17/2022 12:13 PM CDT 1 packe t NG Tube $ Given 10/17/2022 8:35 AM CDT 1 packet NG Tube $ Given 10/17/2022 2:16 AM CDT 1 packet NG Tube propofol (Diprivan) 1000 mg in 100 mL infusion ADS Med 1 dose, Starting on Wed10/12/22 at 2357, Until Wed10/13/22 at 0203, Created by cabinet override Vial and Tubing should be changed and/or discarded every 12 hours. propofol (Diprivan) infusion 0-50 mcg/kg/min ? 103 kg (0-30.9 mL/hr), Intravenous, CONTINUOUS, Starting on Wed10/13/22 at 0030, Until Amira 10/15/22 at 0813, Above RASS goal: Assess and treat pain first if CPOT greater than 2. If agitation persists increase rate per order. At RASS goal and no change in 4 hours: Decrease rate per order. Below RASS goal (unarousable): Hold infusion until at goal RASS then restart at 50% previous rate. If significant hemodynamic changes notify physician for instructions. Notify physician for inability to reach goals despite maximal dosage. Note: The CPOT goal should be achieved first with the use of the ordered analgesic medication prior to targeting RASS goal with the sedative. Vial and Tubing should be changed and/or discarded every 12 hours., Titration Parameters: Standard Parameters, Indication: Sedation, Initiate infusion at: 5 mcg/kg/min, Titrate infusion by: 5 mcg/kg/min, Titrate every: 2 minutes, Notify physician if: Unachievable RASS goal despite max dose, Titration Priority: 1st Current Rate 10/15/2022 6:17 AM CDT 20 mcg/kg/min 12.36 mL/hr Current Rate 10/15/2022 1:56 AM CDT 20 mcg/kg/min 12.36 mL /hr $ New Bag/Syringe 10/15/2022 1:53 AM CDT 20 mcg/kg/min 12. 36 mL/hr rocuronium (Zemuron) injection 100 mg 100 mg, Intravenous, ONCE, 1 dose, On Wed10/14/22 at 1130, For use prior to procedure with ENT $ Given 10/14/2022 11:35 AM CDT 100 mg rosuvastatin (Crestor) tablet 40 mg 40 mg, Enteral Tube, DAILY, First dose (after last modification) on Wed10/14/22 at 1015, Until Discontinued $ Given 10/21/2022 8:22 AM CDT 40 mg NG Tu be $ Given 10/20/2022 8:29 AM CDT 40 mg NG Tube $ Given 10/19/2022 8:19 AM CDT 40 mg NG Tube rosuvastatin (Crestor) tablet 40 mg 40 mg, Oral, DAILY, First dose (after last modification) on Wed10/22/22 at 0900, Until Discontinued $ Given 10/28/2022 8:52 AM CDT 40 mg $ Given 10/27/2022 9:37 AM CDT 40 mg $ Given 10/26/2022 8:03 AM CDT 40 mg senna-docusate (Senokot-S) tablet 1 tablet 1 tablet, Enteral Tube, DAILY, First dose on Wed10/13/22 at 2100, Until Discontinued $ Given 10/14/2022 8:33 AM CDT 1 tablet OG Tube simethicone (Mylicon) chew tablet 80 mg 80 mg, Oral, 4 TIMES DAILY PRN, Gas Pain, Starting on Wed10/27/22 at 1617, Until Wed10/28/22 at 2110 tamsulosin (Flomax) capsule 0.4 mg 0.4 mg, Oral, DAILY, First dose on Wed10/27/22 at 1700, Until Discontinued, At the same time every day after a meal. Do not crush or chew if given orally or by tube. $ Given 10/28/2022 8:53 AM CDT 0.4 mg $ Given 10/27/2022 6:47 PM CDT 0.4 mg tenecteplase (TNKase) injection 25 mg 25 mg, Intravenous, ONCE, 1 dose, On Wed10/12/22 at 1945, Give rapid bolus over 5 seconds. Dilute to 5 mg/mL; Administer over 5 seconds, The patient and or family members understand the potential risks and benefits from treatment. I understand, Upon review of the above inclusion/exclusion criteria, thrombolytic administration is deemed appropriate for this patient. Criteria Reviewed $ Given 10/12/2022 7:34 PM CDT 25 mg tiotropium (Spiriva Respimat) 2.5 MCG/ACT inhaler 2 puff 2 puff, Inhalation, DAILY, First dose on Wed10/22/22 at 1400, Until Discontinued $ Given 10/27/2022 8:32 AM CDT 2 pu ffs $ Given 10/26/2022 8:20 AM CDT 2 puffs $ Given 10/25/2022 8:52 AM CDT 2 puffs documented in this encounter Active and Recently Administered Medications Times are shown in CDT. Scheduled Medication Order 10/26/2022 10/27/2022 10/28/2022 acetaminophen (Tylenol) tablet 650 mg(Linked Group 1) 650 mg, Oral, EVERY 8 HOURS, First dose (after last modification) on Wed10/27/22 at 1400, Until Discontinued, Patient preference for lesser PRN pain meds may be honored when the patient requests a less strong medication, a lower dose, or a less intrusive route of administration when the lesser drug, dose and route have been ordered for the patient. This patient request must be documented in the MAR. 152 ($ Given - Provider: Dave Frias RN)2049 ($ Given - Provider: Anne Marie Beebe RN) 0609 ($ Given - Provider: Anne Marie Beebe RN)1313 ($ Given - Provider: SN Jody) amLODIPine (Norvasc) tablet 10 mg 10 mg, Oral, DAILY, First dose (after last modification) on Wed10/22/22 at 0900, Until Discontinued 0804 ($ Given - Provider: Clari Worrell RN) 0937 ($ Given - Provider: Dave Frias RN) 0853 ($ Given - Provider: SN Jody) aspirin chew tablet 81 mg 81 mg, Oral, DAILY, First dose (after last modification) on Wed10/22/22 at 0900, Until Discontinued 0803 ($ Given - Provider: Clari Worrell RN) 0937 ($ Given - Provider: Dave Frias RN) 0852 ($ Given - Provider: SN Jody) budesonide-formoterol (Symbicort) 160-4.5 MCG/ACT inhaler 2 puff 2 puff, Inhalation, 2 TIMES DAILY, First dose on Wed10/22/22 at 1400, Until Discontinued, Rinse mouth after usage . WASTE DISPOSAL INSTRUCTION: Send to Pharmacy for Disposal. . 08 ($ Given - Provider: Clari Worrell RN)2024 ($ Given - Provider: Anne Marie Beebe RN) 0831 ($ Given - Provider: Sam Walton RCP)2047 ($ Given - Provider: Cielo Laird RCP) 0853 ($ Given - Provider: SN Jody) clopidogrel (plaVIX) tablet 75 mg 75 mg, Oral, DAILY, 88 doses, First dose (after last modification) on Wed10/22/22 at 0900, Last dose on Wed01/17/23 at 0900 0803 ($ Given - Provider: Clari Worrell RN) 0937 ($ Given - Provider: Dave Frias RN) 0853 ($ Given - Provider: SN Jody) empagliflozin (Jardiance) tablet 10 mg 10 mg, Oral, DAILY, First dose on Wed10/22/22 at 1230, Until Discontinued, Restricted to the indication of Heart Failure and/or CKD only due to risk of hypoglycemic when used for DM in acute care settings. Indication for use? Heart Failure 0804 ($ Given - Provider: Clari Worrell RN) 0937 ($ Given - Provider: Dave Frias RN) 0853 ($ Given - Provider: SN Jody) gabapentin (Neurontin) capsule 200 mg 200 mg, Oral, 3 TIMES DAILY, First dose on Wed10/27/22 at 1030, Until Discontinued 1143 ($ Given - Provider: Dave Frias RN)1523 ($ Given - Provider: Dave Frias RN)2050 ($ Given - Provider: Anne Marie Beebe RN) 0852 ($ Given - Provider: SN Jody)1314 ($ Given - Provider: SN Jody) heparin injection 5,000 Units 5,000 Units, Subcutaneous, EVERY 8 HOURS, First dose on Wed10/13/22 at 2200, Until Discontinued 0803 ($ Given - Provider: Clari Worrell RN)1816 ($ Given - Provider: Clari Worrell RN)202 ($ Given - Provider: Anne Marie Beebe RN) 0937 ($ Given - Provider: Dave Frias RN)1848 ($ Given - Provider: Dave Frias RN)2103 ($ Given - Provider: Anne Marie Beebe RN) 0854 ($ Given - Provider: SN Jody)1923 (Not Administered - Provider: SN Jody - Reason: Refused-Patient) insulin glargine (Lantus) pen 10 Units 10 Units, Subcutaneous, EVERY 24 HOURS, First dose (after last modification) on Wed10/20/22 at 0900, Until Discontinued, Obtain current Blood Glucose if necessary . WASTE DISPOSAL INSTRUCTIONS: Black Bin Disposal required. 0815 ($ Given - Provider: Clari Worrell RN) 0843 ($ Given - Provider: Dave Frias RN) 0853 ($ Given - Provider: SN Jody) insulin lispro (HumaLOG;ADMelog) 100 UNIT/ML pen 0-12 Units 0-12 Units, Subcutaneous, 3 TIMES DAILY WITH MEALS, First dose on Wed10/21/22 at 0845, Until Discontinued, DO NOT HOLD CORRECTION BOLUS EVEN IF PATIENT IS NPO. If patient is eating meals and has orders for Mealtime Insulin Bolus, combine and give at the same time. BEDSIDE GLUCOSE MUST BE PERFORMED AND DOCUMENTED WITHIN 30-60 MINUTES OF CORRECTION INSULIN ADMINISTRATION. BG (mg/dL) LESS than 70 = Follow Hypoglycemic guidelines 150-200 = give 2 units 201-250 = give 4 units, 251-300 = give 6 units 301-350 = give 8 units 351-400 = give 10 units and notify physician GREATER than 400 = give 12 units and notify physician 0815 (Not Administered - Provider: Clari Worrell RN - Reason: See Comments - Comment: BG 149)1327 ($ Given - Provider: Clari Worrell RN)1822 ($ Given - Provider: Clari Worrell RN) 0844 ($ Given - Provider: Dave Frias RN)1244 ($ Given - Provider: Dave Frias RN)1847 ($ Given - Provider: Dave Frias RN) 0843 (Not Administered - Provider: SN Jody - Reason: Per Administration Instructions)1313 ($ Given - Provider: SN Jody)1925 (Not Administered - Provider: SN Jody - Reason: See Comments - Comment: pt discharging) lidocaine (Lidoderm) 5 % patch 1 patch 1 patch, Administer over 12 Hours, EVERY 24 HOURS, First dose on Wed10/19/22 at 2315, Until Discontinued, Apply to lower back and remove patch after a max of 12 hours of application within a 24 hour period. 0816 (Removed - Provider: Clari Worrell RN)2023 ($ Applied - Provider: Anne Marie Beebe RN) 0938 (Removed - Provider: Dave Frias RN)2049 ($ Applied - Provider: Anne Marie Beebe RN) 0854 (Removed - Provider: SN Jody) losartan (Cozaar) tablet 50 mg 50 mg, Oral, DAILY, First dose (after last modification) on Wed10/22/22 at 0900, Until Discontinued 0803 ($ Given - Provider: Clari Worrell RN) 0937 ($ Given - Provider: Dave Frias RN) 0852 ($ Given - Provider: SN Jody) melatonin tablet 8 mg 8 mg, Oral, DAILY AT 2030, First dose (after last modification) on Wed10/21/22 at 2030, Until Discontinued 2023 ($ Given - Provider: Anne Marie Beebe RN) 2049 ($ Given - Provider: Anne Marie Beebe RN) 2030 (Due) nicotine (Nicoderm CQ) patch 21 mg 21 mg, Administer over 24 Hours, DAILY, First dose on Wed10/13/22 at 0900, Until Discontinued, Remove old patch before applying new patch. This patch may contain metal and is not compatible with MRI. Notify radiology of patch location upon arrival to MRI. . WASTE DISPOSAL INSTRUCTIONS: P-Listed item. Special Disposal Required. . 0816 (Removed - Provider: Clari Worrell RN)0819 ($ Applied - Provider: Clari Worrell RN) 0937 (Removed - Provider: Dave Frias RN)0940 ($ Applied - Provider: Dave Frias RN) 0852 (Removed - Provider: SN Jody)0854 (Not Administered - Provider: SN Jody - Reason: Refused-Patient) rosuvastatin (Crestor) tablet 40 mg 40 mg, Oral, DAILY, First dose (after last modification) on Wed10/22/22 at 0900, Until Discontinued 0803 ($ Given - Provider: Clari Worrell RN) 0937 ($ Given - Provider: Dave Frias RN) 0852 ($ Given - Provider: SN Jody) tamsulosin (Flomax) capsule 0.4 mg 0.4 mg, Oral, DAILY, First dose on Wed10/27/22 at 1700, Until Discontinued, At the same time every day after a meal. Do not crush or chew if given orally or by tube. 1847 ($ Given - Provider: Dave Frias RN) 0853 ($ Given - Provider: SN Jody) tiotropium (Spiriva Respimat) 2.5 MCG/ACT inhaler 2 puff 2 puff, Inhalation, DAILY, First dose on Wed10/22/22 at 1400, Until Discontinued 0820 ($ Given - Provider: Clari Worrell RN) 0832 ($ Given - Provider: Sam Walton RCP) 1219 (Not Administered - Provider: Frantz Uriostegui RCP - Reason: Patient Condition) PRN Medication Order 10/26/2022 10/27/2022 10/28/2022 acetaminophen (Tylenol) tablet 650 mg (CANCELED) 650 mg, Oral, EVERY 6 HOURS PRN, Headache, Severe Pain, Moderate Pain, Mild Pain, Starting on Wed10/21/22 at 1235, Until Wed10/27/22 at 0950, Patient preference for lesser PRN pain meds may be honored when the patient requests a less strong medication, a lower dose, or a less intrusive route of administration when the lesser drug, dose and route have been ordered for the patient. This patient request must be documented in the MAR. 0803 ($ Given - Provider: Clari Worrell RN)1816 ($ Given - Provider: Clari Worrell RN) 0841 ($ Given - Provider: Dave Frias, AGGIE) albuterol-ipratropium (Duo-Neb) nebulizer solution 3 mL 3 mL, Inhalation, EVERY 4 HOURS PRN, Shortness of Breath, Wheezing, Starting on Wed10/21/22 at 0730, Until Wed10/28/22 at 2109 0825 ($ Given - Provider: Sam Walton RCP) bismuth subsalicylate (Pepto-Bismol) chew tablet 524 mg 524 mg (2 tablet), Oral, PRN, Diarrhea, Starting on Wed10/21/22 at 1831, Until Wed10/28/22 at 2110, Tablets should be chewed and swallowed. Do not exceed 8 doses per day. calcium carbonate (Tums) chew tablet 2 tablet 2 tablet, Oral, EVERY 2 HOURS PRN, Heartburn, Starting on Wed10/27/22 at 1044, Until Wed10/28/22 at 2109 1122 ($ Given - Provider: Dave Frias RN) dextrose 10 % IV bolus(Linked Group 2) 12.5 g, at 468.75 mL/hr, Intravenous, PRN, Other, Bedside Glucose less than 70 mg/dL -If NOT able to eat and/or NPO and with IV Access, Starting on Wed10/12/22 at 2219, Until Wed10/28/22 at 211, If NOT able to eat and/or NPO and with IV Access: For Bedside Glucose 54-69 mg/dL give 12.5 g Dextrose IV STAT For Bedside Glucose LESS than 54 mg/dl verify with a second Bedside Glucose (from a different site) and give 25 g Dextrose IV STAT Re-check and Re-treat blood glucose EVERY , 10-25 minutes until blood glucose GREATER than or equal to 80 mg/dl. NOTIFY PROVIDER OF HYPOGLYCEMIC EVENT. dextrose 10 % IV bolus(Linked Group 2) 25 g, at 937.5 mL/hr, Intravenous, PRN, Other, Bedside Glucose less than 70 mg/dL -If NOT able to eat and/or NPO and with IV Access, Starting on Wed10/12/22 at 2219, Until Wed10/28/22 at 2109, If NOT able to eat and/or NPO and with IV Access: For Bedside Glucose 54-69 mg/dL - give 12.5 g Dextrose IV STAT For Bedside Glucose LESS than 54 mg/dl - verify with a second Bedside Glucose (from a different site) and give 25 g Dextrose IV STAT Re-check and Re-treat blood glucose EVERY - 10-25 minutes until blood glucose GREATER than or equal to 80 mg/dl. - If repeat bedside glucose 54-79 give 12.5 g Dextrose IV STAT NOTIFY PROVIDER OF HYPOGLYCEMIC EVENT. glucagon (Glucagen) injection 1 mg 1 mg, Subcutaneous, PRN, Bedside Glucose less than 70 mg/dL - If NOT able to eat and/or NPO and withOUT IV Access, Starting on Wed10/12/22 at 2219, Until Wed10/28/22 at 2109, If NOT able to eat and/or NPO and NO IV Access: For Bedside glucose 54-69 mg/dL - Give 1 mg subcutaneous For Bedside Glucose LESS than 54 mg/dl - verify with a second bedside glucose (from a different site) - Give 1 mg subcutaneous Re-check and Re-treat blood glucose EVERY 10-25 minutes until blood glucose GREATER than or equal to 80 mg/dl. NOTIFY PROVIDER OF HYPOGLYCEMIC EVENT. Reconstitute vial with 1 mL of sterile water for injection for a final concentration of 1 mg/mL; shake vial gently; use immediately and discard unused portion glucose (Diabetic Use) (Dex4 Glucose) oral liquid Oral, PRN, Other, Bedside Glucose less than 70 mg/dL -If able to eat and does not have swallowing difficulties, Starting on Wed10/12/22 at 2219, Until Wed10/28/22 at 2109, If able to eat and can swallow thin liquids: For Bedside Glucose 54 - 69 mg/dL Give 15 grams of oral carbohydrates - 1 glucose liquid (see MAR) If patient refuses glucose liquid, then offer: - 4 ounces of fruit juice OR - 4 ounces non-diet soda OR - 8 ounces of fat-free milk For Bedside Glucose LESS than 54 mg/dL - verify with a second Bedside Glucose (from a different site) - If pt is symptomatic, do not delay treatment - If accuracy of the POC glucose is in question, confirm glucose with a STAT laboratory test. Give 30 grams of oral carbohydrates - 2 glucose liquid (see MAR) If patient refuses glucose liquid, then offer: - 8 ounces of fruit juice OR - 8 ounces non-diet soda OR - 16 ounces of fat-free milk Re-check and Re-treat blood glucose EVERY 10-25 minutes until blood glucose GREATER than or equal to 80 mg/dl. - If on recheck, bedside glucose 54-79 mg/dL - Give 15 grams of oral carbohydrates (see above for choices) NOTIFY PROVIDER OF HYPOGLYCEMIC EVENT. glucose (Diabetic Use) oral gel Oral, PRN, Other, Bedside Glucose less than 70 mg/dL -If able to eat and does not have swallowing difficulties, Starting on Wed10/12/22 at 2219, Until Wed10/28/22 at 2110, If able to eat and is better able to swallow gel: For Bedside Glucose 54 - 69 mg/dL Give 15 grams of oral carbohydrates - 1 glucose gel (see MAR) If patient refuses glucose gel, then offer: - 4 ounces of fruit juice OR - 4 ounces non-diet soda OR - 8 ounces of fat-free milk For Bedside Glucose LESS than 54 mg/dL verify with a second Bedside Glucose (from a different site) - If pt is symptomatic, do not delay treatment - If accuracy of the POC glucose is in question, confirm glucose with a STAT laboratory test Give 30 grams of oral carbohydrates - 2 glucose gels (see MAR) If patient refuses glucose gel, then offer: - 8 ounces of fruit juice OR - 8 ounces non-diet soda OR - 16 ounces of fat-free milk Re-check and Re-treat blood glucose EVERY 10-25 minutes until blood glucose GREATER than or equal to 80 mg/dl. - If on recheck, bedside glucose 54-79 mg/dL - Give 15 grams of oral carbohydrates (see above for choices) NOTIFY PROVIDER OF HYPOGLYCEMIC EVENT. glucose chew tablet 4 tablet 4 tablet (16 g), Oral, PRN, Other, Bedside Glucose less than 70 mg/dL -If able to eat and does not have swallowing difficulties, Starting on Wed10/12/22 at 2219, Until Wed10/28/22 at 2110, If able to eat and does not have swallowing difficulties: For Bedside Glucose 54 - 69 mg/dL Give 16 grams of oral carbohydrates - 4 glucose tabs (see MAR) If patient refuses glucose tabs, then offer: - 4 ounces of fruit juice OR - 4 ounces non-diet soda OR - 8 ounces of fat-free milk For Bedside Glucose LESS than 54 mg/dL - verify with a second Bedside Glucose (from a different site) - If pt is symptomatic, do not delay treatment - If accuracy of the POC glucose is in question, confirm glucose with a STAT laboratory test. Give 32 grams of oral carbohydrates - 8 glucose tabs (see MAR) If patient refuses glucose gel, then offer: - 8 ounces of fruit juice OR - 8 ounces non-diet soda OR - 16 ounces of fat-free milk Re-check and Re-treat blood glucose EVERY 10-25 minutes until blood glucose GREATER than or equal to 80 mg/dl. - If on recheck, bedside glucose 54-79 mg/dL - Give 15 grams of oral carbohydrates (see above for choices). NOTIFY PROVIDER OF HYPOGLYCEMIC EVENT. loperamide (Imodium) capsule 2 mg 2 mg, Oral, 4 TIMES DAILY PRN, Diarrhea, Starting on Wed10/23/22 at 1459, Until Wed10/28/22 at 2110, Max dose 16mg/day oxyCODONE (immediate release) (Roxicodone) tablet 5 mg (CANCELED) 5 mg, Oral, EVERY 6 HOURS PRN, Severe Pain, Starting on Wed10/23/22 at 1458, Until Wed10/26/22 at 1239, 2nd option for severe pain if tylenol ineffective Patient preference for lesser PRN pain meds may be honored when the patient requests a less strong medication, a lower dose, or a less intrusive route of administration when the lesser drug, dose and route have been ordered for the patient. This patient request must be documented in the MAR. 0455 ($ Given - Provider: Ariella Montes RN)1113 ($ Given - Provider: Clari Worrell RN) oxyCODONE (immediate release) (Roxicodone) tablet 5 mg 5 mg, Oral, EVERY 4 HOURS PRN, Severe Pain, Starting on Wed10/26/22 at 1245, Until Wed10/28/22 at 2110, 2nd option for severe pain if tylenol ineffective Patient preference for lesser PRN pain meds may be honored when the patient requests a less strong medication, a lower dose, or a less intrusive route of administration when the lesser drug, dose and route have been ordered for the patient. This patient request must be documented in the MAR. 1510 ($ Given - Provider: Clari Worrell RN)2026 ($ Given - Provider: Anne Marie Beebe RN) 0559 ($ Given - Provider: Anne Marie Beebe RN) 0856 ($ Given - Provider: SN Jody)1806 ($ Given - Provider: SN Jody) polyethylene glycol 3350 (Miralax) packet 17 g 17 g, Oral, DAILY PRN, Constipation, Starting on Wed10/21/22 at 1235, Until Wed10/28/22 at 2110, Mix in 8 ounces of water, juice, soda, coffee or tea prior to administration simethicone (Mylicon) chew tablet 80 mg 80 mg, Oral, 4 TIMES DAILY PRN, Gas Pain, Starting on Wed10/27/22 at 1617, Until Wed10/28/22 at 2110 Linked Groups Order Group 1: acetaminophen (Tylenol) tablet 650 mgJump to med 650 mg, Oral, EVERY 8 HOURS, First dose (after last modification) on Wed10/27/22 at 1400, Until Discontinued, Patient preference for lesser PRN pain meds may be honored when the patient requests a less strong medication, a lower dose, or a less intrusive route of administration when the lesser drug, dose and route have been ordered for the patient. This patient request must be documented in the MAR. Group 2: dextrose 10 % IV bolusJump to med 12.5 g, at 468.75 mL/hr, Intravenous, PRN, Other, Bedside Glucose less than 70 mg/dL -If NOT able to eat and/or NPO and with IV Access, Starting on Wed10/12/22 at 2219, Until Wed10/28/22 at 2109, If NOT able to eat and/or NPO and with IV Access: For Bedside Glucose 54-69 mg/dL give 12.5 g Dextrose IV STAT For Bedside Glucose LESS than 54 mg/dl verify with a second Bedside Glucose (from a different site) and give 25 g Dextrose IV STAT Re-check and Re-treat blood glucose EVERY , 10-25 minutes until blood glucose GREATER than or equal to 80 mg/dl. NOTIFY PROVIDER OF HYPOGLYCEMIC EVENT. Or dextrose 10 % IV bolusJump to med 25 g, at 937.5 mL/hr, Intravenous, PRN, Other, Bedside Glucose less than 70 mg/dL -If NOT able to eat and/or NPO and with IV Access, Starting on Wed10/12/22 at 2219, Until Wed10/28/22 at 2109, If NOT able to eat and/or NPO and with IV Access: For Bedside Glucose 54-69 mg/dL - give 12.5 g Dextrose IV STAT For Bedside Glucose LESS than 54 mg/dl - verify with a second Bedside Glucose (from a different site) and give 25 g Dextrose IV STAT Re-check and Re-treat blood glucose EVERY - 10-25 minutes until blood glucose GREATER than or equal to 80 mg/dl. - If repeat bedside glucose 54-79 give 12.5 g Dextrose IV STAT NOTIFY PROVIDER OF HYPOGLYCEMIC EVENT. documented in this encounter Care Teams Master Machinist Relationship Specialty Start Date End Date Ly Valenzuela MD [address] [place] [address] PCP - General 03/06/22 documented as of this encounter
--- OUTSIDE RECORDS SUMMARY | 2024-05-22 00:03 | XMS_ITS | Encounter Summary ---
Author Organization [facility] Health Address [address] [place] [address] Care Team Providers Care Strand And Binder Controller Name Role Phone Gildardo Kelley MD Primary Care Provider [phone] Reason for Visit * Reason Onset Date Comments Question 02/19/2022 Encounter Details Date Type Department Care Team (Late st Contact Info) Description 02/19/2022 Telephone [facility] [address], [facility] [place] [id number] Ru Addison MD [address] [place] [address] Question Social History Tobacco Use Types Packs/Day Years Used Date Smoking Tobacco: Every Day Cigarettes Smokeless Tobacco: Never Alcohol Use Standard Drinks/Week Comments Not Currently 0 (1 standard drink = 0.6 oz pur e alcohol) AUDIT-C Answer Date Recorded Q1: How often do you have a drink containing alcohol? Never 01/19/2022 Q2: How many drinks containi ng alcohol do you have on a typical day when you are drinking? Patient does not drink Q3: How often do you have si x or more drinks on one occasion? Never 01/19/2022 PHQ-2 Answer Date Recorded PHQ2 TOTAL SCORE 0 12/13/2021 Hunger Vital Sign Answer Date Recorded Within the past 12 months, y ou worried that your food would run out before you got the money to buy more. Never true 12/13/19 22 Within the past 12 months, t he food you bought just didn't last and you didn't have money to get more. Never true 12/12/2021 Sex and Gender Information Value Date Recorded Sex Assigned at Not on file Gender Identity Not on file Sexual Orientation Not on file documented as of this encounter Functional Status Functional Status Response Date of Assess ment Is person deaf or have serious hearing difficult y? No 01/19/2022 Is person blind or have serious difficulty seein g? No 01/19/2022 Does person have serious dif ficulty walking/climbing stairs? No 01/19/2022 Does person have difficulty dressing/bathing? No 01/19/2022 Does person have difficulty doing errands alone? Yes 01/19/2022 Cognitive Status Response Date of Assessm ent Does person have difficulty concentrating/remembering/making decisions? No 01/19/2022 documented as of this encounter Miscellaneous Notes * Telephone Encounter - Josy Connelly LPN - 02/19/2022 3:20 PM CDT Unique, Nena pt [facility] to see [facility]. Are you able to assist him with scheduling this visit? Thanks! Ludivina * Telephone Encounter - Unique Luna - 02/19/2022 1:04 PM CDT PT IS CALLING HE HAS QUESTIONS HE IS ASKING IF A NURSE CAN GIVE HIM A CHRISTOPHE About what he should be doing. Pt can be reach @ [phone]. Thanks documented in this encounter Plan of Treatment Not on file documented as of this encounter Visit Diagnoses Not on filedocumented in this encounter Care Teams Strand And Binder Controller Relationship Specialty Start Date End Date Gildardo Kelley MD [address] [place] [address] PCP - General 12/15/21 03/05/22 documented as of this encounter
--- OUTSIDE RECORDS SUMMARY | 2024-05-22 00:03 | XMS_ITS | Encounter Summary ---
Author Organization [facility] Health Address [address] [place] [address] Care Team Providers Care It Investment/Portfolio Manager Name Role Phone Clinicpc, Jose Sanchez Primary Care Pr ovider Reason for Visit * Reason Comments Lower Leg Pain Pt stated he has num bness to left arm for a while, left left numbness, weakness, hard time walking with walker since 9-10pm last PM. Hx: strokes x5 * Auth/Cert Specialty Diagnoses / Procedures Referred By Lina t Referred To Contact Referral ID Status Reason Start Date Expiration Date Visits Re quested Visits Authorized [id number] 1 1 Encounter Details Date Type Department Care Team (Latest Contact Info) Description 12/11/2021 11:56 AM CDT - 12/14/2021 4:01 PM CDT Hospital Encounter [facility] 5N ACUTE [address] [place] [id number] Ketan Snowden MD [address] [place] [address] John Spence MD [address] [place] [address] Jorge Hall MD [address] [facility] [address] [place] [phone] Ru Gaines MD [address] [place] [address] Neurology Discharge Disposition: Home Health Care Svc Social History Tobacco Use Types Packs/Day Years Used Date Smoking Tobacco: Every Day Cigarettes Smokeless Tobacco: Never Alcohol Use Standard Drinks/Week Comments Yes 0 (1 standard drink = 0.6 oz pur e alcohol) AUDIT-C Answer Date Recorded Q1: How often do you have a drink containing alcohol? Never 12/11/2021 Q2: How many drinks containi ng alcohol do you have on a typical day when you are drinking? Patient does not drink Q3: How often do you have si x or more drinks on one occasion? Never 12/11/2021 PHQ-2 Answer Date Recorded PHQ2 TOTAL SCORE 0 12/13/2021 Hunger Vital Sign Answer Date Recorded Within the past 12 months, y ou worried that your food would run out before you got the money to buy more. Never true 12/13/19 Within the past 12 months, t he [...] Sign Reading Time Taken Comments Blood Pressure 176/72 12/14/2021 12:00 PM CDT Pulse 97 12/14/2021 12:00 PM CDT Temperature 36.7 ??C (98 ??F) 12/14/2021 12:00 PM CDT Respiratory Rate 18 12/14/2021 12:00 PM CDT Oxygen Saturation 97% 12/14/2021 12:00 PM CDT Inhaled Oxygen Concentration - - Weight 72.6 kg (160 lb) 12/11/2021 11:52 AM CDT Height 180.3 cm (5' 11 ) 12/11/2021 11:52 AM CDT Body Mass Index 22.32 12/11/2021 11:52 AM CDT documented in this encounter Functional Status Functional Status Response Date of Assess ment Is person deaf or have serious hearing difficult y? Yes 12/14/2021 Is person blind or have serious difficulty seein g? Yes 12/14/2021 Does person have serious dif ficulty walking/climbing stairs? Yes 12/14/2021 Does person have difficulty dressing/bathing? Ye s 12/14/2021 Does person have difficulty doing errands alone? Yes 12/14/2021 Cognitive Status Response Date of Assessm ent Does person have difficulty concentrating/remembering/making decisions? No 12/14/2021 documented as of this encounter Discharge Summaries * Charles Junior MD - 12/14/2021 12:35 PM CDT Images from the original note were not included. [facility] STROKE NEUROLOGY DISCHARGE SUMMARY PATIENT: Esperanza Chaparro 66 year old male : 1955 ADMISSION INFORMATION ADMISSION DISCHARGE Date: 12/11/2021 Date: 12/14/2021 Adm. Physician Jorge Hall MD Disch. Physician: Dr Gaines Condition: right frontal cortical stroke and chronic infarcts in??parietal, temporo-occipital regions Condition: right frontal cortical stroke and chronic infarcts in??parietal, temporo-occipital regions Reason for Admission: right frontal cortical stroke and chronic infarcts in??parietal, temporo- occipital regions Encounter Diagnoses: 1. Hx of completed stroke 2. Left leg weakness 3. Primary hypertension HOSPITAL COURSE Hospital Course: 66 yo male with PMHx HTN, HLD, DM, CAD s/p stenting who was brought by his mother to the ED for left leg weakness that he first experienced on 12/10 2099 while attempting to rise from the recliner. Theweakness lasted for a few hours before resolving, and then the pt decided to go to bed. When he woke, he had another episode, which prompted him to come to the ED. He described the experience as feeling like there was nothing there where his leg should be. He tried pumping his legs up/down but this did not alleviate sx. No known aggravating factors. Weakness involved the left toes all the way to the left groin region. He has never experienced this before. He had no associated back pain or recent trauma; though he has had several back surgeries. Pt states he has had strokes in past. NIHSS 1 on arrival for dysarthria.With his history of tobacco use as well as HTN, HLD it is likely that there has been hypoperfusion to the right parietal causing weakness of the left leg. In addition, given the pt's near 50-79% occlusion of his left internal carotid as well, the pt is at higher risk for bilateral hypoperfusion.??MRI brain showed right frontal cortical stroke and chronic infarcts in??parietal, temporo-occipital regions. His blood pressure medications were stopped in hospital due to riskof sudden lowering of blood pressure with risk of hypoperfusion to brain. He was started on HCTZ tocontrol blood pressure in goal. His blood pressure goal is 140-160 mm of hg systolic. Consults: IP CONSULT TO GEOGRAPHY TEACHER IP CONSULT TO VASCULAR NEUROLOGY IP CONSULT TO CASE MANAGEMENT IP CONSULT TO NUTRITIONAL SERV IP CONSULT TO GEOGRAPHY TEACHER IP CONSULT TO PHYSICAL MED AND REHAB IP CONSULT TO SPRING REPAIRER HELPER HAND Diagnostic Studies: MRI ANGIO BRAIN ARTERIAL WO CONT Addendum Date: 12/12/2021 There is T2 hyperintensity along the posterior aspect of the sphenoid sinus surrounding the slightly enlarged left ICA (image 8 series 10,), nonspecific evaluation with contrast is recommended for further evaluation, partially empty sella with flattening of the pituitary gland. > Interpreting Provider: Re Sage Dr on 12/12/2021 3:43 PM Result Date: 12/12/2021 IMPRESSION: 1.Areas of the evolving infarction with cortical laminar necrosis also noted in right frontal lobe. Areas of restricted diffusion noted in the right frontal lobe including the right precentral gyrus/and paracentral lobule suggesting superimposed acute infarction. 2.Evolving chronic to subacute infarcts noted in the right parietal, temporo-occipital regions with tiny foci of associatedsusceptibility. These could be secondary to chronic hemosiderin staining versus petechial hemorrhages. 3.Occlusion of the right internal carotid artery from its origin with reconstitution from the cavernous segment. Slow flow is noted in the right distal cavernous, ICA terminus, proximal right MCA upto the bifurcation on [id number] imaging with the opacification on postcontrast imaging. The report was drafted by Maryana Sanderson MD (Meat Cooler). Critical results discussed with Dr. Becker by Dr. Sanderson on 12/12/2021 at 8:41 AM. I, Re Sage Dr have personally reviewed and interpreted this examination/study. > Interpreting Provider: Re Sage Dr on 12/12/2021 10:13 AM MRI ANGIO NECK W CONTRAST Addendum Date: 12/12/2021 There is T2 hyperintensity along the posterior aspect of the sphenoid sinus surrounding the slightly enlarged left ICA (image 8 series 10,), nonspecific evaluation with contrast is recommended for further evaluation, partially empty sella with flattening of the pituitary gland. > Interpreting Provider: Re Sage Dr on 12/12/2021 3:43 PM Result Date: 12/12/2021 IMPRESSION: 1.Areas of the evolving infarction with cortical laminar necrosis also noted in right frontal lobe. Areas of restricted diffusion noted in the right frontal lobe including the right precentral gyrus/and paracentral lobule suggesting superimposed acute infarction. 2.Evolving chronic to subacute infarcts noted in the right parietal, temporo-occipital regions with tiny foci of associatedsusceptibility. These could be secondary to chronic hemosiderin staining versus petechial hemorrhages. 3.Occlusion of the right internal carotid artery from its origin with reconstitution from the cavernous segment. Slow flow is noted in the right distal cavernous, ICA terminus, proximal right MCA upto the bifurcation on [id number]-[id number] imaging with the opacification on postcontrast imaging. The report was drafted by Maryana Sanderson MD (Meat Cooler). Critical results discussed with Dr. Becker by Dr. Sanderson on 12/12/2021 at 8:41 AM. I, Re Sage Dr have personally reviewed and interpreted this examination/study. > Interpreting Provider: Re Sage Dr on 12/12/2021 10:13 AM MRI BRAIN NON CONTRAST Addendum Date: 12/12/2021 There is T2 hyperintensity along the posterior aspect of the sphenoid sinus surrounding the slightly enlarged left ICA (image 8 series 10,), nonspecific evaluation with contrast is recommended for further evaluation, partially empty sella with flattening of the pituitary gland. > Interpreting Provider: Re Sage Dr on 12/12/2021 3:43 PM Result Date: 12/12/2021 IMPRESSION: 1.Areas of the evolving infarction with cortical laminar necrosis also noted in right frontal lobe. Areas of restricted diffusion noted in the right frontal lobe including the right precentral gyrus/and paracentral lobule suggesting superimposed acute infarction. 2.Evolving chronic to subacute infarcts noted in the right parietal, temporo-occipital regions with tiny foci of associatedsusceptibility. These could be secondary to chronic hemosiderin staining versus petechial hemorrhages. 3.Occlusion of the right internal carotid artery from its origin with reconstitution from the cavernous segment. Slow flow is noted in the right distal cavernous, ICA terminus, proximal right MCA upto the bifurcation on [id number] imaging with the opacification on postcontrast imaging. The report was drafted by Maryana Sanderson MD (Meat Cooler). Critical results discussed with Dr. Becker by Dr. Sanderson on 12/12/2021 at 8:41 AM. I, Re Sage Dr have personally reviewed and interpreted this examination/study. > Interpreting Provider: Re Sage Dr on 12/12/2021 10:[address] BRAIN STROKE Result Date: 12/12/2021 IMPRESSION: 1. No acute interval change compared to the brain CT from yesterday. 2. No acute intracranial hemorrhage or mass effect. The findings were discussed by Dr. Segal with Dr. Woodson at 1350 hours on 12/12/2021. > Interpreting Provider: Lauren Segal MD on 12/12/2021 2:[address] BRAIN STROKE Result Date: 12/11/2021 IMPRESSION: 1. No acute intracranial hemorrhage. 2. Suspect a heterogeneous mass in the sella. Consider further evaluation with a brain MRI with and without contrast using a dynamic pituitary protocol. The findings were discussed by Dr. Segal with Dr. Becker at 1221 hours on 12/11/2021. > Interpreting Provider: Lauren Segal MD on 12/11/2021 12:25 PM Recent Labs Component Name 12/14/21 0255 12/13/21 01412/12/21 0205 WBC 7.8 6.2 7.5 HGB 12.0 11.6* 11.8* HCT 36.2 34.9* 34.9* MCV 86.6 86.0 86.8 Recent Labs Component Name 12/14/21 0255 12/13/21 0149 12/12/21 0205 CALCIUM 9.6 9.4 9.5 PHOS 3.7 3.5 3.3 Recent Labs Component Name 12/14/21 0255 12/13/21 0149 12/12/21 0205 NA 136 137 136 CL 100 98 99 CO2 22 24 24 BUN 22 21 19 CREATININE 1.40* 1.32* 1.23* Recent Labs Component Name 12/11/21 1227 PROT 7.2 ALB 3.7 ALKPHOS 68 AST 13 ALT 11 TBILI 0.7 Recent Labs Component Name 12/11/21 1227 12/11/21 1214 PT 13.0 - INR 1.0 1.0 PTT 35.2 - Recent Labs Component Name 12/13/21 0301 12/12/21 1229 12/12/21 0205 TROPONINI 0.046* 0.039* 0.042* Microbiology: Microbiology Results (Displays last 21 days for this encounter ONLY) No results found for the last 504 hours. Discharge Exam: BP 176/72 Pulse 97 Temp 98 ??F (36.7 ??C) (Oral) Resp 18 Ht 5' 11 (1.803 m) Wt 160 lb (72.6 kg) SpO2 97% General: Con - NAD, afebrile CV - RRR for age, normal s1/s2, no m/r/g Pulm - CTAB, no w/r/r Abd - BS+, soft, NTND Ext: No c/c/e, 2+ dpp, normal ROM ?? Cortical Function Mental Status Awake, alert, follows commands Orientation Person, place, time, and situation Language Fluency intact, comprehension intact, repetition intact Visual Orozco Intact bilaterally to confrontation Neglect No visual neglect noted, no tactile neglect noted ?? Cranial Nerves II Pupils bilaterally reactive to light. Fundoscopic exam not performed. VIII Hearing is intact bilaterally to finger rub. III/IV/ Extraocular muscles intact. No diplopia, ptosis, nystagmus or convergence abnormalities noted. IX/X Palate elevated symmetrically without phonation abnormalities noted. V Facial sensation symmetric to light touch and intact bilaterally. Corneal reflex not examined. XIHead turning and shoulder shrug are intact. VII No facial palsy noted. XII Tongue is midline with normal movements and no atrophy noted. ?? Motor Function Movement No abnormalities noted Bulk No abnormalities noted Tone No abnormalities noted ? Proximal Upper Distal Upper Proximal Lower Distal Lower Right 5/5 5/5 5/5 5/5 Left 5/5 5/5 4/5 5/5 ?? Muscle Stretch Reflexes ?? BI TRI BR PAT ACH TOES Right 2 2 2 2 2 Down Left 2 2 2 2 2 Down ?? Sensory Light Touch Symmetric and intact bilaterally Noxious Stimuli Symmetric and intact bilaterally Temperature Not tested Pallesthesia Not tested ?? Cerebellar ?? FNF Right Intact Left Intact ?? Gait Deferred DISCHARGE PLANNING Disposition: Home Diet: low salt, low fat Activity Level: As tolerated - avoid intense exercise Monitoring: Blood pressure Patient is at higher risk of cerebral hypoperfusion as his Right ICA is completely occluded and left ICA is 50-79% stenosis. His blood pressure goal is 140-160 mm of Hg. Discontinued his antihypertensive medications due to risk of cerebral hypoperfusion. He is being discharged from hospital with blood pressure goal and referral to bridge clinic for optimal care of his blood pressure. Follow-up appointments: Future Appointments As directed Outpatient Referral: Ref to Physical Therapy - [facility] PT As directed Outpatient Referral: Ref to [facility] Bridge [facility] Transitional Care Medications: Current Discharge Medication List START taking these medications Instructions Authorizing Provider * hydroCHLOROthiazide 12.5 MG capsule Commonly known as: Microzide Quantity Dispensed: 90 capsule Take 1 (one) capsule by mouth once daily Charles Junior MD * hydroCHLOROthiazide 12.5 MG capsule Commonly known as: Microzide Quantity Dispensed: 7 capsule Take 1 (one) capsule by mouth once daily for 7 days Bruno Tong MD * This list has 2 medication(s) that are the same as other medications prescribed for you. Read thedirections carefully, and ask your doctor or other care provider to review them with you. CONTINUE taking these medications which have NOT CHANGED Instructions Authorizing Provider acetaminophen 325 MG tablet Commonly known as: Tylenol Take 650 mg by mouth every 4 hours as needed for Fever or Pain Maximum allowable Acetaminophen amount = 4 Grams (4000 mg) / 24 hours. albuterol HFA 108 (90 Base) MCG/ACT inhaler Commonly known as: Proventil; Ventolin; Proair Inhale 2 puffs by mouth 4 times daily as needed for Shortness of Breath aspirin EC 81 MG tablet Commonly known as: Ecotrin Take 81 mg by mouth once daily brinzolamide-brimonidine 1-0.2 % ophthalmic suspension Commonly known as: Simbrinza Instill 1 drop into left eye 3 times daily Per patient, he takes prn when he feels pressure in his eye (~2-3 times per week) empagliflozin 25 MG tablet Commonly known as: Jardiance Take 12.5 mg by mouth once daily Take 1/2 tablet (12.5 mg) daily fluticasone-salmeterol 100-50 MCG/ACT inhaler Commonly known as: Advair/Wixela Inhale 1 puff by mouth 2 times daily Per patient, he gets the medication filled but doesn't take itbecause of the inconvenience of having to rinse his mouth out after use. lidocaine 5 % patch Commonly known as: Lidoderm Apply 1 patch to skin once daily For back pain rosuvastatin 40 MG tablet Commonly known as: Crestor Take 40 mg by mouth every evening Spiriva Respimat 2.5 MCG/ACT inhaler Generic drug: tiotropium Inhale 2 puffs by mouth once daily ticagrelor 90 MG tablet Commonly known as: Brilinta Take 90 mg by mouth 2 times daily STOP taking these medications carvedilol 12.5 MG tablet Commonly known as: Coreg furosemide 40 MG tablet Commonly known as: Lasix lisinopril 20 MG tablet Commonly known as: Prinivil; Zestril The above medications are discussed with and approved by the attending physician Dr. Gaines THE ABOVE DISCHARGE SUMMARY WILL NOT BE CONSIDERED FINAL WITHOUT THE ATTESTATION OF ATTENDING PHYSICIAN DR GAINES Signed: Charles Junior MD 12/14/2021 Associated attestation - Ru Gaines MD - 12/14/2021 10:27 PM CDT NEUROVASCULAR SERVICE ATTESTATION I saw and examined the patient with the Resident. I have verified all details of the Resident's note and agree with the Resident's documentation with additions and modifications as listed below. I spent more than 30 minutes of time in direct coordination of care related to this patient's discharge including medications, coordination with other health care providers and communication with thepatient and family. Ru Gaines MD documented in this encounter Discharge Instructions * Discharge Instructions* Charles Junior MD - 12/14/2021 12:22 PM CDT Images from the original note were not included. ~~~~~~~~~~~~~IMPORTANT MESSAGE FROM YOUR DOCTORS~~~~~~~~~~~~~ Dear Mr Chaparro, You were admitted to [facility] for stroke. We managed your stroke while managing chronic medicalissues. We also did the stroke work up. You have narrowing of vessels in your neck. It is very important to take care of your blood pressure. Our goal is between 140-160 systolic blood pressure. We are stopping your blood pressure medications (carvedilol, furosemide and lisinopril) due to risk of hypoperfusion to brain if your blood pressure is suddenly lowered due to these medications. We also started a blood pressure medication called hydrochlorothiazide to keep your blood pressure in goal range (controlled on this medication during hospital stay). Please make sure to discuss it with your primary care provider after discharge from the hospital. Please note the following instructions: DISCHARGE MEDICATIONS: Below were changes made to your home medications: New meds started: Current Discharge Medication List START taking these medications Details hydroCHLOROthiazide (Microzide) 12.5 MG capsule Take 1 (one) capsule by mouth once daily Qty: 90 capsule, Refills: 3 Home meds to stop: Current Discharge Medication List STOP taking these medications carvedilol (Coreg) 12.5 MG tablet Comments: Reason for Stopping: furosemide (Lasix) 40 MG tablet Comments: Reason for Stopping: lisinopril (Prinivil; Zestril) 20 MG tablet Comments: Reason for Stopping: Home meds that have changed: Current Discharge Medication List We have continued your other home medications. If you have any questions about your medications, please be sure to ask the pharmacy when you fish bait picker your prescription. You may also call your primary provider if you are uncertain if you should be taking your medication. CONCERNING SYMPTOMS: When to call your healthcare provider: Call your healthcare provider immediately if you have any of the following: - Dizziness - Weakness in arms/legs - Fever of 101??F or higher - Shaking chills - Intractable nausea and vomiting - Severe headache - Confusion/altered mental status - Seizures (convulsions) If you are unable to reach your primary provider, please go to the nearest emergency room or call EMS ([phone]). FOLLOW-UP APPOINTMENTS: Future Appointments As directed Outpatient Referral: Ref to Physical Therapy - [facility] PT As directed Outpatient Referral: Ref to [facility] Transitional Care It is essential that you keep all of your follow-up appointments and go to your doctors appointments as scheduled. If a follow-up with your primary care provider has not been scheduled, you need to schedule an appointment to follow- up on your hospitalization within 1-2 weeks. If there is a conflict, please call the clinic ahead of time and reschedule the appointment. If you need to call [facility] for any reason, you may reach us at [phone] and dial [phone] for the fagoting machine operator. It was a pleasure taking care of you and we wish you all the best. Kind regards, Your Hospital Team [address] [address] documented in this encounter Medications at Time of Discharge Medication Sig Dispensed Refills Start Date End Date acetaminophen (Tylenol) 325 MG tablet Take 650 mg by mouth every 4 hours as needed for Fever or Pain Maximum allowable Acetaminophen amount = 4 Grams (4000 mg) / 24 hours. 10/13/2022 albuterol HFA (Proventil; Ventolin; Proair) 108 (90 Base) MCG/ACT inhaler Inhale 2 puffs by mouth 4 times daily as needed for Shortness of Breath 10/13/2022 aspirin EC (Ecotrin) 81 MG tablet Take 81 mg by mouth once daily 10/13/2022 brinzolamide-brimoni dine (Simbrinza) 1-0.2 % ophthalmic suspension Instill 1 drop into left eye 3 times daily Per patient, he takes prn when he feels pressure in his eye (~2-3 times per week) 10/13/2022 carvedilol (Coreg) 12.5 MG tablet 0.5 (one-half) tablet 05/06/202110/2022 empagliflozin (Jardiance) 25 MG tablet Take 12.5 mg by mouth once daily Take 1/2 tablet (12.5 mg) daily ezetimibe (Zetia) 10 MG tablet 0.5 (one-half) tablet 12/10/20212022 fluticasone-salmeter ol (Advair/Wixela) 100-50 MCG/ACT inhaler Inhale 1 puff by mouth 2 times daily Per patient, he gets the medication filled but doesn't take it because of the inconvenience of having to rinse his mouth out after use. 10/13/2022 hydroCHLOROthiazide (Microzide) 12.5 MG capsule Take 1 (one) capsule by mouth once daily for 7 days 7 capsule 12/14/2021 12/21/2021 hydroCHLOROthiazide (Microzide) 12.5 MG capsule Take 1 (one) capsule by mouth once daily 90 capsule 3 12/14/2021 01/19/2022 lidocaine (Lidoderm) 5 % patch Apply 1 patch to skin once daily For back pain 10/13/2022 rosuvastatin (Crestor) 40 MG tablet Take 40 mg by mouth every evening 10/13/2022 ticagrelor (Brilinta) 90 MG tablet Take 90 mg by mouth 2 times daily 10/13/2022 tiotropium (Spiriva Respimat) 2.5 MCG/ACT inhaler Inhale 2 puffs by mouth once daily 10/13/2022 documented as of this encounter Progress Notes * Beronica Salvador COTA - 12/14/2021 1:24 PM CDT [facility] Physical Medicine and Rehabilitation Occupational Therapy Patient Name Esperanza Chaparro Date of 1955 Age [age] year old 12/14/21 1300 Missed Visit Missed Visit Other (Comment) Pt just started eating lunch. Declines OT at this time. He believes he will be d/c'd today. He would like to resume home health therapy, which would be appropriate. YAMILEX Paz Occupational Therapist 12/14/2021 * Dawit Wiley PTA - 12/14/2021 10:42 AM CDT [facility] Physical Medicine and Rehabilitation PhysicalTherapy Progress Note Patient: Esperanza Chaparro Med Record Number: [id number] Date of : 1955 Age: [age] year old Face Mask: Therapists wore face mask and eye protection. Discharge Recommendation: Patient will benefit from home health PT Subjective: Patient was agreeable to participate with therapy. Patient currently using Wheeled Walker and has equipment at home. No equipment needs if d/c home. Mental Status: Alert and Oriented x 4, Patient followed 100% of commands. At start of therapy session, patient found in patient bedside chair and with no alarm . Pain: Patient has 2/10 pain in his back Follow-up for pain: No follow-up for pain indicated and patient agreed to proceed with treatment Weight Bearing Status: WBAT Mobility: Sit to Stand:Minimal assist to Stand By Assist Bed to Chair: Stand By Assist Gait: Device:Wheeled Walker Assistance: Minimal assist Distance: 30ft Deviations: slow mary, decreased step length, and slight forward flexed posture Balance: Static Sitting: good Dynamic sitting: good minus Static Standing: fair plus Dynamic Standing: fair Stairs : 2 step up/downs on stool to simulate navigation of stairs. Patient require minimal assistance to perform activity. Vitals: (*Assess the 3 levels of oxygen saturations both for room air and 02 unless rest on room air is 88% or less). Rest BP: HR: Sp02 98% Room Air Ex/Gait/Activity Without 02 BP: HR: Sp02 97% Room Air Ex/Gait/Activity With 02 BP: HR: Sp02 L O2 Post Activity BP: HR: Sp02 Sp02 97% Room Air Observations: Patient maintain good oxygen rate throughout session, but was slightly OOB during gait training. Activity Tolerance: Patient's activity tolerance: good Modified Solano Score: Current Modified Solano Score: 3 Treatment/therapeutic Exercise: Transfer Training, Gait Training, and stair navigation. EDUCATION: While performing PT, Patient was instructed in:Functional mobility training/weight bearing status, Energy conservation, Safety awareness/fall precaution and Pursed lip breathing Patient demonstrated Good understanding of instructions given. GOALS: Short Term Goals: Goal Formation With patient Patient will perform bed mobility: Independent Patient will transfer sit to/from stand: Independent Patient will transfer bed to/from chair: Independent Patient will ambulate 75 feet with Independent and appropriate AD Patient will perform home exercise program independently ?? Care Home Goal(s): Patient to be independent/baseline with functional mobility and self care and be able to safely discharge to prior level of care Update Treatment Plan: Continue PT per POC. If patient is discharged from the facility, this note serves as a discharge note if further physical therapy visits did not occur. Following therapy session, patient left in patient bedside chair, unable to find chair alarm so patient placed back in bed, with call light within reach and with RN, Molly aware. * Charles Junior MD - 12/13/2021 1:23 PM CDT Neurology Progress Note Patient: Esperanza Chaparro Room: 521 Age: [age] year old Subjective: 66 yo male with PMHx HTN, HLD, DM, CAD s/p stenting who was brought by his mother to the ED for left leg weakness that he first experienced on 12/10 2099 while attempting to rise from the recliner. Theweakness lasted for a few hours before resolving, and then the pt decided to go to bed. When he woke, he had another episode, which prompted him to come to the ED. He described the experience as feeling like there was nothing there where his leg should be. He tried pumping his legs up/down but this did not alleviate sx. No known aggravating factors. Weakness involved the left toes all the way to the left groin region. He has never experienced this before. He had no associated back pain or recent trauma; though he has had several back surgeries. Pt states he has had strokes in past. NIHSS 1 on arrival for dysarthria. Overnight: No acute events reported overnight Objective: BP 175/94 Pulse 59 Temp 97.5 ??F (36.4 ??C) (Oral) Resp 18 Ht 5' 11 (1.803 m) Wt 160 lb (72.6 kg) SpO2 97% Temp (30hrs) Max:98 ??F (36.7 ??C) Body mass index is 22.32 kg/m??. Exam: General: Con - NAD, afebrile CV - RRR for age, normal s1/s2, no m/r/g Pulm - CTAB, no w/r/r Abd - BS+, soft, NTND Ext: No c/c/e, 2+ dpp, normal ROM Cortical Function Mental Status Awake, alert, follows commands Orientation Person, place, time, and situation Language Fluency intact, comprehension intact, repetition intact Visual Orozco Intact bilaterally to confrontation Neglect No visual neglect noted, no tactile neglect noted Cranial Nerves II Pupils bilaterally reactive to light. Fundoscopic exam not performed. VIII Hearing is intact bilaterally to finger rub. III/IV/ Extraocular muscles intact. No diplopia, ptosis, nystagmus or convergence abnormalities noted. IX/X Palate elevated symmetrically without phonation abnormalities noted. V Facial sensation symmetric to light touch and intact bilaterally. Corneal reflex not examined. XIHead turning and shoulder shrug are intact. VII No facial palsy noted. XII Tongue is midline with normal movements and no atrophy noted. Motor Function Movement No abnormalities noted Bulk No abnormalities noted Tone No abnormalities noted Proximal Upper Distal Upper Proximal Lower Distal Lower Right 5/5 5/5 5/5 5/5 Left 5/5 5/5 4/5 5/5 Muscle Stretch Reflexes BI TRI BR PAT ACH TOES Right 2 2 2 2 2 Down Left 2 2 2 2 2 Down Sensory Light Touch Symmetric and intact bilaterally Noxious Stimuli Symmetric and intact bilaterally Temperature Not tested Pallesthesia Not tested Cerebellar FNF Right Intact Left Intact Gait Deferred Labs: Reviewed. Imaging: CXR 12/11 Mild bibasilar atelectasis. There is no pleural effusion or pneumothorax. The cardiomediastinal silhouette is normal. The visible bony thorax is intact. MRI ANGIO BRAIN & NECK W CONTRAST 12/11 1.Areas of the evolving infarction with cortical [...] proximal right MCA upto the bifurcation on [id number] imaging with the opacification on postcontrast imaging. MRI ANGIO BRAIN 12/11 1.Areas of the evolving infarction with cortical [...] proximal right MCA upto the bifurcation on [id number] imaging with the opacification on postcontrast imaging. CT BRAIN STROKE 12/12 1. No acute interval change compared to the brain CT from yesterday. 2. No acute intracranial hemorrhage or mass effect. VAS CAROTID DUPLEX B/L 12/12 Occlusion of the right internal carotid artery. This was seen on MRI (12/11/21) The left internal carotid artery has 50-79% Stenosis. TRANSCRANIAL DOPPLER 12/12 -waiting for read Assessment and Plan: Esperanza Chaparro is a 66 yo male with PMHx HTN, HLD, DM. CAD s/p stenting who originally presented for transient left leg weakness. With his history of tobacco use as well as HTN, HLD it is likely that there has been hypoperfusion to the right parietal causing weakness of the left leg. In addition, given the pt's near 50-79% occlusion of his left internal carotid as well, the pt is at higher risk for bilateral hypoperfusion. MRI brain showed right frontal cortical stroke and chronic infarcts in parietal, temporo-occipital regions Stroke type: Ischemic Stroke Mechanism: Large vessel #right frontal cortical stroke and chronic infarcts in parietal, temporo- occipital regions #stroke workup - pt has 50-79% occlusion of LICA - additionally occlusion of KINSEY - pt [facility] by [facility] - rosuvastatin 40 mg daily at bedtime - Aspirin 81 mg daily and plavix 75 mg daily - heparin 5000 units TID for DVT ppx - cerebral angio outpatient to assess for collaterals - monitor BP closely #HTN - patient has not been very compliant with HTN medications - holding HTN medications due to risk of bilateral brain hypoperfusion #HLD - continue rosuvastatin 40 mg daily #DM - Takes empagliflozin at home - holding home med in hosp - SSI, accuchecks 4 times daily #Hx of CAD s/p stents - continue aspirin and clopidogrel (holding home ticagrelor- will resume at discharge) Discussed Assessment and Plan with Attending Physician, This progress note will not be considered final without the attestation of attending physician. Charles Junior MD Neurology Resident, PGY-2 [facility] Associated attestation - Ru Gaines MD - 12/14/2021 10:24 PM CDT NEUROVASCULAR SERVICE ATTESTATION I saw and examined the patient with the Resident. I have verified all details of the Resident's note and agree with the Resident's documentation. Date of Service: 12/13/2021 Ru Gaines MD * Lorie Trinidad, PT - 12/13/2021 12:50 PM CDT [facility] Physical Medicine and Rehabilitation Physical Therapy Initial Evaluation Note Patient: Esperanza Chaparro Med Record Number: [id number] Date of : 1955 Age: [age] year old Face mask: worn throughout tx Tech: na Discharge Recommendation: Patient will benefit from home health PT In addition to the 1:1 evaluation of the patient, additional eval time was spent completing the chart review prior to the assessment, completing the multidisciplinary plan of care and education plan post evaluation and communicating results of the eval to other treatment team members. Patient currently using Wheeled Walker and has equipment at home. No equipment needs if d/c home. Owns rollator and will continue use of this upon D/C. Occupational Therapy contacted regarding patient status and/or discharge plan. Physician Orders: Evaluation and Treat PRECAUTIONS: Fall and aspiration Activity Level as tolerated DIAGNOSIS: Patient Active Problem List: Hx of completed stroke DM2 (diabetes mellitus, type 2) Chronic low back pain Left leg weakness Primary hypertension Smoker No past medical history on file. SUBJECTIVE: I am ready to go home PATIENT GOALS: to go home Home living: Type of Residence: Private Residence Lives with:: Mother Steps to Enter: 4 Ramp: Yes Handrails: Outdoor Home Structure: One Story Primary Bedroom: First Floor Primary Bathroom: First Floor Bathroom : Walk in Shower Equipment At Home: Build in shower seat;Cane-Straight;Walker-4 Wheeled with Seat Prior Function: Mobility: Ambulate-In Home ;With Assistive Device Fallen Within 6 Mos: 1 Have Help at Home?: Yes, there is help at home now Vision: Corrected with glasses Who manages medications?: patient manages At start of therapy session, patient found in patient bedside chair and with chair alarm on. Pain: Patient has 0/10 pain at rest and mild low back pain with movement. Follow-up for pain: No follow-up for pain indicated and patient agreed to proceed with treatment OBJECTIVE: General Appearance: Male sitting in chair in NAD. Precautions: IV's: Peripheral line Skin, Incisions, Edema: No edema noted Other: na Vitals:resting: BP= 150/89. Post-gait: BP= 181/84. RN aware of elevated BP. Pt. Had no c/o's [place] or symptoms. MENTAL STATUS: Alert and oriented times 3 DIRECTION FOLLOWING: Able to follow 1-2 step commands 100 % ROM: WFL x 4, but guarded left shld due to arthritis. STRENGTH: RUE and bilat LE's WFL. LUE shld 3+ to 4-/5 at shld and distally WFL. SENSATION:light touch intact x 4, but decreased left fingertips. TONE: na NEGLECT: na COORDINATION: Able to do fingertip touches on right and able to do on left thumb through 4 th finger and unable to reach pinky. FUNCTIONAL MOBILITY Not Tested Not Applicable Independent Stand by Assist Minimal Moderate Maximum Dependent Rolling x Scooting x Supine to/from sit x Sit to/from Stand x Bed to/ chair x Observation: pt. In chair upon arrival and requested to stay in the chair at the end of therapy. BALANCE: Sitting Static: good Dynamic: good Standing Static: good minus with WW Dynamic: fair plus with WW Observation: na GAIT: Weight Bearing: WBAT Distance: 40 feet Device: gait belt, non-slip socks and wheeled walker Assistance: Stand By Assist Balance: fair (+) fair endurance Observation: pt. With decreased heel to toe gait pattern ACTIVITY TOLERANCE: Patient's activity tolerance: fair TREATMENT/INTERVENTIONS: evaluation, transfer training, gait training and monitoring of vitals EDUCATION: While performing PT, Patient was instructed in:Functional mobility training/weight bearing status and Safety awareness/fall precaution Patient demonstrated Good understanding of instructions given. INFORMED CONSENT TO TREATMENT: Plan of care including recommended therapy, goals and frequency, discussed with patient who understands and agrees to proceed. ASSESSMENT: Tolerated well. Patient would benefit from additional Physical Therapy to achieve the following functional goals toenhance independence. Modified Solano Score:3 Current Modified Solano Score: 3 Short Term Goals: Goal Formation With patient Patient will perform bed mobility: Independent Patient will transfer sit to/from stand: Independent Patient will transfer bed to/from chair: Independent Patient will ambulate 75 feet with Independent and appropriate AD Patient will perform home exercise program independently Care Home Goal(s): Patient to be independent/baseline with functional mobility and self care and be able to safely discharge to prior level of care Equipment Issued: none Plan: If patient is discharged from the facility, this note serves as a discharge summary if further physical therapy visits did not occur. Following therapy session, patient left in patient bedside chair, with chair alarm on and with calllight within reach * Beronica Salvador COTA - 12/13/2021 10:59 AM CDT [facility] Physical Medicine and Rehabilitation Occupational Therapy Progress Note Patient: Esperanza Chaparro Med Record Number: [id number] Date of : 1955 Age: [age] year old Face Mask: Droplet Tech: Discharge Recommendation: Patient will benefit from home health OT. Patient is frustrated regarding discharge. He feels he does not understand why he is being kept here. Would benefit from clear explanation of desired outcome before d/c. Precautions: Subjective: My sister helps me get dressed. At start of therapy session, patient found in patient bedside chair and with chair alarm on. Pain: Patient has c/o constant back pain he did not quantify. Agreeable to OT. Denies need for intervention at this time. Follow-up for pain: No follow-up for pain indicated and patient agreed to proceed with treatment Activities of Daily Living Feeding: Independent Grooming/Bathing: Stand By Assist working midline unsupported at sink x5 minutes for oral and facial hygiene. Upper Extremity Dressing: not tested Lower Extremity Dressing: Minimal assist threading pants over R LE, pt dons over L LE unassisted. Min assist donning pants over bilateral hips in standing. SBA donning bilateral slip on shoes crossing ankle up over opposite knee. Pt would benefit from aerodynamicist, dressing stick and shoe horn. Toileting/Transfers: not tested Mobility: Assist device: Wheeled Walker Rolling: not tested Supine to/from Sit:not tested Sit to/from Stand: Stand By Assist. Cues for safe placement of device when sitting. Functional Mobility: To/from bathroom with min to close SBA using w/w. Balance: Static Sitting: good Dynamic Sitting: good Static Standing: fair plus Dynamic Standing: fair plus Vitals: (*Assess the 3 levels of oxygen saturations both for room air and 02 unless rest on room air is 88% or less). Rest BP: 174/79 (107) HR: 95 SpO2 94% SpO2 Room Air L 02 Ex/Gait/Activity Without 02 BP: HR: SpO2 Room Air Ex/Gait/Activity With 02 BP: HR: SpO2 L 02 Post Activity BP: HR: SpO2 SpO2 L 02 Room Air Observations: NAD Activity tolerance: fair plus; no s/s of fatigue with dressing and grooming Current Modified Solano Score: 3 Cognitive/Perceptual: A&Ox4 and conversation. Follows 1 step directions 100%. Some forgetfulness; pt thought he was wearing pants when he wasn't then needed a cue to remember to pull his pants upafter standing from chair. Fair safety and insight. Treatment/Therapeutic Exercise: Treatment session this date focused on ADL training Adaptive equipment training Functional transfer training Endurance training Bed mobility Energy conservation Safety awareness EDUCATION: While performing mobility and self care, Patient was instructed in: Functional mobility training/weight bearing status, Energy conservation, Safety awareness/fall precaution, Discharge plan and Self care training Presented to patient who demonstrates Good understanding of instructions given. Equipment Issued: none Update Treatment Plan/Goals : Patient continues to benefit from skilled OT to improve independence with activities of daily living, increase strength, endurance, range of motion, and decrease pain. Continue per POC Short Term Goals: Goal Formation With patient Patient will perform grooming standing at sink and independently Patient will perform toileting independently Patient will transfer to standard toilet independently and with appropriate assistive device Patient will transfer sit to stand independently ?? Care Home Goal(s): Patient to be independent with functional mobility and self-care and should be able to safely discharge to prior level of care. If patient is discharged from the facility, this note serves as a discharge note if further occupational therapy visits did not occur. Following therapy session, patient left in patient bedside chair, with chair alarm on and with calllight within reach. * Gretchen Hatfield - 12/13/2021 7:24 AM CDT General Neurology Progress Note Esperanza Chaparro Age: [age] year old Date of : 1955 Date of Admission: 12/11/2021 Hospital Day: 2 Subjective Brief HPI: 66 yo male with PMHx HTN, HLD, DM, CAD s/p stenting who was brought by his mother to the ED for left leg weakness that he first experienced on 12/10 2099 while attempting to rise from the recliner. Theweakness lasted for a few hours before resolving, and then the pt decided to go to bed. When he woke, he had another episode, which prompted him to come to the ED. He described the experience as feeling like there was nothing there where his leg should be. He tried pumping his legs up/down but this did not alleviate sx. No known aggravating factors. Weakness involved the left toes all the way to the left groin region. He has never experienced this before. He had no associated back pain or recent trauma; though he has had several back surgeries. Pt states he has had strokes in past. NIHSS 1 on arrival for dysarthria. Date last known well: 12/10/2021 Time last known well: 2099 Blood Pressure: 143/88 ?? Timeline Code Stroke Paged 1210 Arrival at [facility] ED ?? NIHSS Completed 1218 First [facility] Slice 1210 tPA orders placed NA Interval History: No overnight events. Objective Patient Vitals for the past 24 hrs: BP Temp Temp src Pulse Resp SpO2 12/13/21 0407 156/78 98 ??F (36.7 ??C) Oral 65 17 98 % 12/12/21 2348 173/79 97.5 ??F (36.4 ??C) Oral 87 20 97 % 12/12/21 1952 173/96 -- Oral 72 16 96 % 12/12/21 1320 157/86 -- -- -- -- -- 12/12/21 1153 171/79 97.9 ??F (36.6 ??C) Oral 61 18 97 % 12/12/21 0926 165/80 -- -- -- -- -- 12/12/21801 179/75 97.9 ??F (36.6 ??C) Oral 60 18 98 % Intake/Output Summary (Last 24 hours) at 12/13/2021 0724 Last data filed at 12/12/2021 1218 Gross per 24 hour Intake 400 ml Output 300 ml Net 100 ml Exam: Cortical Function Mental Status Awake, alert, follows commands Orientation Person, place, time, and situation Language Fluency intact, comprehension intact, repetition intact Visual Orozco Intact [...] turning and shoulder shrug are intact. VII No facial palsy noted. XII Tongue is midline with normal movements and no atrophy noted. Motor Function Movement No abnormalities noted Bulk No abnormalities noted Tone No abnormalities noted Proximal Upper Distal Upper Proximal Lower Distal Lower Right 5/5 5/5 5/5 5/5 Left 5/5 5/5 4+/5 5/5 Muscle Stretch Reflexes BI TRI BR PAT ACH TOES Right 2 2 2 2 2 Down Left 2 2 2 2 2 Down Sensory Light Touch Symmetric and intact bilaterally Noxious Stimuli Symmetric and intact bilaterally Temperature Not tested Pallesthesia Not tested Cerebellar FNF RON HKS Right Intact Intact Intact Left Intact Intact Intact Gait Deferred Labs: Recent Labs Component Name 12/13/2114812/12/21 0205 12/11/21 1227 WBC 6.2 7.5 8.7 RBC 4.06* 4.02* 4.37 HGB 11.6* 11.8* 12.7 HCT 34.9* 34.9* 37.8 Recent Labs Component Name 12/13/2114812/12/21 0205 12/11/21 1227 NA 137 136 135* CL 98 99 99 CO2 24 24 27 BUN 21 19 20 CREATININE 1.32* 1.23* 1.40* CALCIUM 9.4 9.5 9.7 No results for input(s): MG in the last 57286 hours. Recent Labs Component Name 12/13/21 0149 12/12/21 0205 PHOS 3.5 3.3 Recent Labs Component Name 12/11/21 1227 12/11/21 1214 PT 13.0 - INR 1.0 1.0 PTT 35.2 - No results for input(s): A1C in the last 74511 hours. Recent Labs Component Name 12/12/21 0205 CHOL 188 HDL 33* LDLCALC 112* TRIG 216* No results for input(s): TSH in the last 25941 hours. Invalid input(s): FT4, TOTT3 Recent Labs Component Name 12/13/21 0301 12/12/21 1229 12/12/21 0205 TROPONINI 0.046* 0.039* 0.042* Imaging: CXR 12/11 Mild bibasilar atelectasis. There is no pleural effusion or pneumothorax. The cardiomediastinal silhouette is normal. The visible bony thorax is intact. MRI ANGIO BRAIN & NECK W CONTRAST 12/11 1.Areas of the evolving infarction with cortical [...] proximal right MCA upto the bifurcation on [id number]-yj-[id number] imaging with the opacification on postcontrast imaging. MRI ANGIO BRAIN 12/11 1.Areas of the evolving infarction with cortical [...] proximal right MCA upto the bifurcation on [id number]-jp-[id number] imaging with the opacification on postcontrast imaging. CT BRAIN STROKE 12/12 1. No acute interval change compared to the brain CT from yesterday. 2. No acute intracranial hemorrhage or mass effect. VAS CAROTID DUPLEX B/L 12/12 Occlusion of the right internal carotid artery. This was seen on MRI (12/11/21) The left internal carotid artery has 50-79% Stenosis. TRANSCRANIAL DOPPLER 12/12 -waiting for read Assessment Esperanza Chaparro is a 66 yo male with PMHx HTN, HLD, DM. CAD s/p stenting who originally presented for transient left leg weakness. With his history of tobacco use as well as HTN, HLD it is likely that there has been hypoperfusion to the right parietal causing weakness of the left leg. In addition, given the pt's near 50-79% occlusion of his left internal carotid as well, the pt is at greater risk for bilateral hypoperfusion. Stroke: Ischemic Mechanism: Large vessel Plan #stroke workup - pt has 50-79% occlusion of LICA - additionally occlusion of KINSEY - pt has loop recorder placed by [facility] - crestor 40 - asa 81 and plavix 75 - heparin 5000 - cerebral angio outpatient to assess for collaterals - monitor BP Case findings discussed with Dr. Gaines, Attending physician. Gretchen Hatfield MS3 * Jana Lira, PharmD - 12/12/2021 2:06 PM CDT [facility] Pharmacy Medication History/Reconciliation Note: The current home/prior to admission ([facility]) medication list has been reviewed by a pharmacist. Outpatient medications were clarified with the patient and Care Everywhere ([facility] records). Please note all medications may NOT have been clarified pending available information at the time. Current Updated Home Medications: Medications Prior to Admission Medication Sig acetaminophen (Tylenol) 325 MG tablet Take 650 mg by mouth every 4 hours as needed for Fever or Pain Maximum allowable Acetaminophen amount = 4 Grams (4000 mg) / 24 hours. albuterol HFA (Proventil; Ventolin; Proair) 108 (90 Base) MCG/ACT inhaler Inhale 2 puffs by mouth 4times daily as needed for Shortness of Breath aspirin EC (Ecotrin) 81 MG tablet Take 81 mg by mouth once daily brinzolamide-brimonidine (Simbrinza) 1-0.2 % ophthalmic suspension Instill 1 drop into left eye 3 times daily Per patient, he takes prn when he feels pressure in his eye (~2-3 times per week) carvedilol (Coreg) 12.5 MG tablet Take 6.25 mg by mouth 2 times daily with morning and evening mealTake 1/2 tablet (6.25 mg) BID empagliflozin (Jardiance) 25 MG tablet Take 12.5 mg by mouth once daily Take 1/2 tablet (12.5 mg) daily fluticasone-salmeterol (Advair/Wixela) 100-50 MCG/ACT inhaler Inhale 1 puff by mouth 2 times daily Per patient, he gets the medication filled but doesn't take it because of the inconvenience of having to rinse his mouth out after use. furosemide (Lasix) 40 MG tablet Take 40 mg by mouth once daily lidocaine (Lidoderm) 5 % patch Apply 1 patch to skin once daily For back pain lisinopril (Prinivil; Zestril) 20 MG tablet Take 10 mg by mouth 2 times daily Take 1/2 tablet (10 mg) BID rosuvastatin (Crestor) 40 MG tablet Take 40 mg by mouth every evening ticagrelor (Brilinta) 90 MG tablet Take 90 mg by mouth 2 times daily tiotropium (Spiriva Respimat) 2.5 MCG/ACT inhaler Inhale 2 puffs by mouth once daily [facility] medication updates and changes requiring additional provider assessment : Medications Added/To Be Added: Acetaminophen 325 mg tablet - take 2 tablets PO q4h prn pain/fever Albuterol 90 mcg/ACTUAT inhaler 8.5gm - Inhale 2 puffs by oral inhalation QID prn SOB Aspirin 81 mg EC tablet - take 1 tablet PO daily Brinzolamide-brimonidine 1-0.2% ophthalmic suspension - Instill one drop in left eye three times a day; per patient, he uses prn when he feels pressure in his eye, usually 2-3 times per week Carvedilol 12.5 mg tablet - take 1/2 tablet PO BID Empagliflozin 25 mg tablet - take 1/2 tablet PO daily Fluticasone 100 mcg/ salmeterol 50 mcg inh oral diskus - Inhale 1 inhalation PO BID - per the patient, he does not take the medication due to the inconvenience of having to rinse his mouth after use Furosemide 40 mg tablet - take 1 tablet PO every morning Lidocaine 5% patch - Apply 1 patch to back once a day for pain. Lisinopril 20 mg tablet - take 1/2 tablet by mouth twice a day. Rosuvastatin 40 mg tablet - take 1 tablet PO every evening Ticagrelor 90 mg tablet - take 1 tablet PO BID Tiotropium 2.5 mcg/ACTUAT 4 gm - Inhale 2 inhalations PO once a day Medications removed/To Be Removed: None Updated medications: None Other Additional Clarification/Concerns/Notes: The patient fills all of his medications at the [facility] outpatient pharmacy. This pharmacy was added to the patient's chart. The patient does not take carvedilol regularly. The last dose taken was ~ 2 weeks ago because his sister sometimes throws out some of his medications or puts them somewhere and he can't find them. This may happen with some of his other medications as well. He also mentioned he does not like taking 1/2 tablets. He said he halves them by biting off half with his teeth instead of using a pill splitter. The patient was recently initiated on empagliflozin 25 mg and furosemide 40 mg. He had not yet started taking them prior to admission. The patient does not seem to always be complaint with some of his medications. Current inpatient medication regimen: Current Facility-Administered Medications Medication Dose Route Frequency 0.9% NaCl infusion Intravenous Continuous 0.9% NaCl injection 3 mL 3 mL Intracatheter q8h And 0.9% NaCl injection 1-10 mL 1-10 mL Intracatheter PRN 0.9% NaCl injection 3 mL 3 mL Intracatheter q8h And 0.9% NaCl injection 1-10 mL 1-10 mL Intracatheter PRN aspirin chew tablet 81 mg 81 mg Oral QDAY atorvastatin (Lipitor) tablet 40 mg 40 mg Oral AT BEDTIME clopidogrel (plaVIX) tablet 75 mg 75 mg Oral QDAY heparin injection 5,000 Units 5,000 Units Subcutaneous q8h nicotine (Nicoderm CQ) patch 14 mg 14 mg Transdermal QDAY Please note that this only serves as an updated medication list and medical teams should continue to manage the patient as deemed most appropriate. If any questions about the medication list arise please do not hesitate to contact the [facility] pharmacy dept ([phone]). Thank you. Assessment Completed by: Ruby Arzate PharmD Candidate 202212/12/2021 2:04 PM Reviewed by: Jana Lira PharmD * Deonte Hyatt, PT - 12/12/2021 1:41 PM CDT [facility] Department of Physical Medicine & Rehabilitation Progress Note Patient: Esperanza Chaparro Med Record Number: [id number] Date of : 1955 Age: [age] year old After asking subjective questions and attempting to mobilize pt, pt reported dizziness which worsened when looking up. Pt denied dizziness with looking left, right, and down. Pt denied room spinning symptoms. Less than 1 minute later pt reported that his LUE and LLE became numb and was unable to move them. Therapist informed Akua MARCIAL outside and called Molly MARCIAL. Pt did not demonstrate facial droop or slurred speech but was demonstrating an increase in L lateral lean. Pt was A&O x 4 bothbefore and after reporting symptoms. Pt reported that this was what happened prior to being admitted, but that it was worse this time. Code stroke was called. Pt regained some movement and sensation in LUE, but remained unchanged for LLE. Pt's BP prior to symptoms was 142/73 and just after symptoms started it was 157/86. Pt performed stand pivot transfer with max of 2 back to bed for imaging. PT exited room at this time and PT evaluation was not completed. PT will continue to follow. * Molly Keene RN - 12/12/2021 1:30 PM CDT While working with therapy, pt developed worsening left side weakness in arm and leg, change in NIH=7, also complained of dizziness. Stroke team made aware, Code Stroke activated,orders received. * Jorge Hall MD - 12/12/2021 1:16 PM CDT Images from the original note [...] active problems not discussed in this note. Esperanza Chaparro is a 66 year old male with hx of HTN, HLD, DM, cigarette smoking, chronic ischemic stroke, CAD w/ cardiac stents, presenting for transient left leg weakness that has since resolved. MRIshowed right frontal cortical stroke as well as chronic infarcts in parietal, temporo-occipital regions. MRA significant for complete occlusion of the right ICA up to the cavernous segment. His sympto ms are minimal on exam. Patient says he wants to leave before weekend. - started ASA, plavix - Atorva 40 mg - TTE pending - Pt has a loop - TCD and neck US - Counseled extensively on smoking cessation - Will perform cerebral angiogram as outpatient to assess the collaterals Patient Vitals for the past 6 hrs: Temp Pulse Resp BP BP Method 12/12/21 1153 97.9 ??F (36.6 ??C) 61 18 171/79 Automatic 12/12/21 0926 -- -- -- 165/80 -- 12/12/21 0802 97.9 ??F (36.6 ??C) 60 18 179/75 Automatic Recent Labs Component Name 12/12/21 0205 CHOL 188 TRIG 216* HDL 33* LDLCALC 112* Recent Labs Component Name 12/11/21 1227 HGBA1C 7.1* Recent Labs Component Name 12/12/21 0205 12/11/21 1227 CREATININE 1.23* 1.40* Recent Labs Component Name 12/12/21 0205 12/11/21 1227 WBC 7.5 8.7 Problem List Hx of completed stroke POA: Yes DM2 (diabetes mellitus, type 2) POA: Yes Chronic low back pain POA: Yes Left leg weakness POA: Yes Primary hypertension POA: Yes Smoker POA: Yes Routine multidisciplinary rounds were completed today with the presence of the primary team staff, residents, PT/OT/SENIOR CONSTRUCTION ESTIMATOR and CM/SW. Jorge Hall MD Vascular and Interventional Neurology * Bravo Woodson, CROSS TIE CUTTER-POLITICAL DIRECTOR - 12/12/2021 11:58 AM CDT NEUROLOGY PROGRESS NOTE 12/12/2021 at 11:59 AM Admission Date: 12/11/2021 HISTORY: History of Present Illness: Esperanza Chaparro??is a 66 year old??male??is presenting to the ED c/o weakness. Patient states yesterday he was sitting down and developed left leg weakness. He was too weak to stand up at that time. Symptoms began around 9 PM on 12/10. Patient states he walks with a walker at baseline due to old strokes, but was unable to stand at that time. He has since regained strength in his left leg and is able to ambulate. Patient arrived to [facility] with resolved symptoms. NIHSS 1 for dysarthria. CTH completed with no acute process. Interval History: No acute events overnight. MRI shows new stroke and MRA shows carotid occlusion. OBJECTIVE: PHYSICAL EXAM Temp: [97.4 ??F (36.3 ??C)-97.9 ??F (36.6 ??C)] 97.9 ??F (36.6 ??C) Pulse: [55-69] 60 Resp: [18] 18 BP: (139-179)/(64-80) 165/80 Neurological Exam: Cortical Function MS: Awake, Alert; Oriented to Person, Place, Time, Situation Follows commands Language: Fluency, Comprehension, Repetition, Naming, all intact VF: Intact to confrontation Neglect: No visual neglect, No tactile neglect Cranial Nerves Pupils 3 mm and BRTL; EOMI; No Ptosis; No Nystagmus Facial sensation intact BL (forehead, infraorbital, jaw) Facial movements intact (upper and lower) Hearing intact to finger rub BL Motor Abnormal Movement: None Bulk: Normal Tone: Normal Strength: Appropriate for age RUE 5/5 LUE 5/5 RLE 5/5 LLE 5/5 Sensory Intact to Light Touch BL throughout Gait and Balance Deferred Imaging studies reviewed CT: 1. No acute intracranial hemorrhage. 2. Suspect a heterogeneous mass in the sella. Consider further evaluation with a brain MRI with andwithout contrast using a dynamic pituitary protocol. MRI/A: 1.Areas of the evolving infarction with cortical [...] proximal right MCA upto the bifurcation on [id number] imaging with the opacification on postcontrast imaging. ASSESSMENT AND PLAN: Esperanza Chaparro is a 66 year old male presenting for transient left leg weakness that has since resolved. Stroke Type: Ischemic Stroke Mechanism: Large Vessel - Started on DAPT and home Crestor 40mg (Wasn't taking consistently) for secondary stroke prevention - Will get Cerebral Angiogram as outpatient - Carotid US and TCD ordered for today - Patient [facility] and [facility] follow. - Continue Q 4 neurochecks; NIHSS Q daily - Stat CT head for any change in neurological examination - Head of bed > 30?? - Avoid hypoglycemia, hyponatremia, and hyperthermia - Sodium goals: normal range - BP Goal: less than 180/90 - Continue diet per ST; PT/OT Case findings discussed with Dr. Hall, Stroke attending. Bravo Woodson APRN-POLITICAL DIRECTOR 12/12/2021 11:59 AM * Deonte Hyatt, PT - 12/12/2021 11:31 AM CDT [facility] Department of Physical Medicine & Rehabilitation Progress Note Patient: Esperanza Chaparro Med Record Number: [id number] Date of : 1955 Age: [age] year old 12/12/21 1059 Missed Visit Missed Visit Other (Comment) (Team in room) 1059 - Team in room 1118 - Team in room 1132 - Team in room Therapist waited outside room for 32 minutes. PT will follow up with pt early in PM for evaluation. * Maricarmen Garcia, SENIOR CONSTRUCTION ESTIMATOR - 12/12/2021 11:07 AM CDT [facility] Department of Physical Medicine & Rehabilitation Speech Therapy Progress Note Patient: Esperanza Chaparro [facility] Record Number: [id number] Date of : 1955 Age: [age] year old Pt was seen briefly at bedside. Pt had passed nursing dysphagia screen and had eaten breakfast before being made NPO for procedure. No swallowing difficulties were reported by pt or nurse. Pt's speech was fluent and intelligible. Pt was oriented and recalled recent events. Speech therapy evaluationis not indicated at this time. * Fredis Samuels RN - 12/12/2021 11:04 AM CDT Stroke Psychosocial Assessment Case Management Screen completed, welcome letter given Basic Needs Assessment (BNA) Score: 4 Met with patient Lives with: Sister Diagnosis: The encounter diagnosis was Left leg weakness. Contacts/Support: Extended Emergency Contact Information Primary Emergency Contact: Clarita Guaman Relation: Other Insurance: Payer/Plan Subscriber Name Rel Member # Group # [employer] ESPERANZA CHAPARRO Self [id number] [id number] Prior level of functioning: Cognition: A/O x 4 Mental Health History: denies Employment/income status: Retired Alcohol/Drug/Tobacco: Current smoker Prior Stroke: denies Co-morbidities: HTN, HLD; smoker Medication Needs: [facility] Established Resources: Community Resource Contact Information: Referral: no If patient requires HHC at discharge, he/she requests: Anticipated level of care provider: None Pt is current with home health therapy provided by the [facility]. Equipment at Home: Build in shower seat;Cane-Straight;Walker-4 Wheeled with Seat Current DME Provider: Recommended/Needed DME: PCP: Jose Hindspcp If no PCP, action taken: Transportation: Coping Strengths: Short Term Goals: Care Home Goals: Patient and Family Questions/Concerns: none Discharge Plan: Anticipated level of care at discharge: Unknown Anticipated Discharge Date: Fredis Samuels RN Phone: [phone] 12/12/2021 * Jesica Cleveland - 12/12/2021 8:57 AM CDT Social Work Progress Note Discharge Plan Disposition: SW reviewed Pt's chart for social needs. Pt is pending post acute recommendations. SW will follow and assist where appropriate. UPDATE 12/12/2021 9:18 AM: OT recommend HH OT. RN CM to request orders for HH and submit referral to accepting agency. Transportation (if ambulance rationale): Anticipated Discharge Date: Anticipated Provider: Anticipated level of care provider: None Contacts: Extended Emergency Contact Information Primary Emergency Contact: Clarita Guaman [place] Relation: Other Have they been contacted? No [facility] [place] [facility] Stroke Removable Prosthodontist [phone] 12/12/2021 8:57 AM * Lee Ann Blankenship OT - 12/12/2021 8:34 AM CDT [facility] Physical Medicine and Rehabilitation Occupational Therapy Initial Evaluation Note Patient: Esperanza Chaparro Med Record Number: [id number] Date of : 1955 Age: [age] year old PPE worn by staff: mask - procedural;gloves Discharge Recommendation: Patient will benefit from home health OT. In addition to the 1:1 evaluation of [...] completed stroke DM2 (diabetes mellitus, type 2) Chronic low back pain Left leg weakness Primary hypertension Smoker No past medical history on file. SUBJECTIVE: Subjective: I've put in some applications to find a new apartment. PATIENT GOALS: Patient's Primary Concern: Return to sister's house until he can find other housing. Home Situation: Type of Residence: Private Residence Lives with:: Sister Steps to Enter: 4 Ramp: No Handrails: Outdoor Home Structure: One Story Primary Bedroom: First Floor Primary Bathroom: First Floor Bathroom : Walk in Shower Equipment At Home: Build in shower seat;Cane-Straight;Walker-4 Wheeled with Seat Prior Level of Functioning: Mobility: Ambulate-In Home ;With Assistive Device Fallen Within 6 Mos: 1 Have Help at Home?: Yes, there is help at home now Who assists you at home?: Friends/Family;Home Health (receives home therapy) Vision: Corrected with glasses Who manages medications?: patient manages Pain Assessment: Pain Rating Score #: (not rated)- reports pain as chronic Pain Location : Back Follow-up for pain: No follow-up for pain indicated and patient agreed to proceed with treatment OBJECTIVE: At start of therapy session, patient found in patient bedside chair and with chair alarm on General Appearance: 66 year old male seated in NAD LDA: IV's: Peripheral line Edema: No edema noted Vitals: (*Assess the 3 levels of oxygen saturations both for room air and 02 unless rest on room air is 88% or less). Rest BP: 165/80 HR: 65 Sp02 Sp02 Room Air L O2 Ex/Gait/Activity Without 02 BP: HR: Sp02 Room Air Ex/Gait/Activity With 02 BP: HR: Sp02 L O2 Post Activity BP: HR: Sp02 Sp02 L O2 Room Air Observations: Denies dizziness/dyspnea Mental Status/Cognition: Level of Consciousness-Adult: Alert Orientation Level: Oriented X4 Cognition: Follows Commands-Consistent;Attention/concentration-normal for age;Processing-Appropriate Following Commands: Follows one step commands consistently Safety Judgement: Good awareness of safety precautions UE ROM: RUE: AROM WFL LUE: AROM WFL except shoulder flex 0-120 AROM Strength: RUE: WNL LUE: Fair spool sander strength, 3-/5 shoulder flex, 4/5 biceps/triceps UE Tone RUE: no abnormal tone noted LUE: no abnormal tone noted Coordination: Intact serial opposition, RON and FNF R UE, impaired serial opposition and RON L UE with intact FNF UE Proprioception RUE: not tested LUE: not tested UE Sensation RUE: intact, no complaints of numbness or tingling LUE: complaints of numbness or tingling, diminished light touch sensation Perception: Visual/Motor Acuity: WDL Mobility: A gait belt and non-slip socks were used for all out of bed activity this date. Transfers: Sit to Stand: Stand By Assist Stand to Sit: Stand By Assist Transfer Device: Cane Functional Ambulation: Functional mobility of ambulation to sink/bathroom with SBA assist using cane. Balance: Balance Scales/Tests Used: Sitting: Static/Dynamic;Standing: Static/Dynamic Sitting - Static: Good Sitting - Dynamic: Good - Standing - Static: Fair;With One Upper Extremity Support Standing - Dynamic: Fair;With One Upper Extremity Support Activities of Daily Living Oral Facial Hygiene: Stand By Assist;Set-up (brush teeth and wash face standing at the sink) Lower Body Dressing: Maximal Assistance (don/doff socks) Splint Issued/Checked: none ACTIVITY TOLERANCE: Patient's activity tolerance: fair Modified Solano: Current Modified Solano Score: 3 TREATMENT / EDUCATION / INTERVENTIONS: While performing OT, Patient was instructed in:functional mobility training, self-care training, safety awareness/fall precautions , home exercise program, discharge planning, use of call light Presented to patient who demonstrates Good understanding of instructions given. INFORMED CONSENT TO TREATMENT: Plan of care including recommended therapy, goals and frequency, discussed with patient who understands and agrees to proceed. ASSESSMENT: Functional performance limited due to: limited activities of daily living, decreased functional mobility, decreased functional balance, decreased safety awareness, upper extremity functional impairments, decreased endurance and activity tolerance and decreased coordination. Patient continues to benefit from skilled Occupational Therapy to achieve the following functional goals. Equipment Issued: gait belt. Short Term Goals: Goal Formation With patient Patient will perform grooming standing at sink and independently Patient will perform toileting independently Patient will transfer to standard toilet independently and with appropriate assistive device Patient will transfer sit to stand independently Care Home Goal(s): Patient to be independent with functional mobility and self-care and should be able to safely discharge to prior level of care. Plan: Plan: ADL training Functional transfer training Functional balance training Endurance training Safety awareness Home exercise program training Coordination exercises If patient is discharged from the facility, this note serves as a discharge summary if further occupational therapy visits did not occur. Refer to filed flowsheet for further details. Following therapy session, patient left in patient bedside chair, with chair alarm on, with call light within reach, with Molly MARCIAL aware, with therapy cues visible on white board. * Nora Lovell RN - 12/12/2021 6:55 AM CDT Problem: Fall Risk Goal: Fall risk and fall related injury risk are minimized (interventions related to the fall risk can be found in the flowsheet documentation) Outcome: Progressing Problem: Ineffective breathing pattern related to obstructive sleep apnea Goal: Maintains optimal sleep pattern, as evidenced by relaxed breathing at normal rate and depth. Outcome: Progressing Goal: Adheres to CPAP (Continuous Positive Airway Pressure) device regimen as prescribed. Outcome: Progressing Problem: Sleep deprivation related to sleep apnea. Goal: Achieves restful, refreshing sleep pattern. Outcome: Progressing Problem: Tobacco Use Goal: Inpatient tobacco-use cessation counseling participation Outcome: Progressing * Augusta Carbajal - 12/11/2021 1:33 PM CDT followed up on earlier page for Code Stroke. Radiation Control Technician visited with patient who requested his mother be allowed to visit as she is present in ED waiting room. After nurse approved visit, escorted patient's mother to AC4. Patient requested his nurse. Patient is aware pastoral care is available as needed and assured of prayer support. Nurse updated. Chaplain Augusta Caldwell [phone] (desk [phone]) outbound call center representative chaplain Hilda Caldwell [phone] (office [phone]) AC04/AC04 documented in this encounter H&P Notes * Bravo Woodson, CROSS TIE CUTTER-POLITICAL DIRECTOR - 12/11/2021 12:36 PM CDT [facility] Stroke History and Physical Esperanza Chaparro Age: [age] year old Date of : 1955 Date of Admission: 12/11/2021 Hospital Day: 0 Subjective Patient is a 66 year old white male presents with left leg weakness. Date last known well: 12/10/2021 Time last known well: 2099 Blood Pressure: 143/88 Timeline Code Stroke Paged 1210 Arrival at [facility] ED NIHSS Completed 1218 First [facility] Slice 1210 tPA orders placed NA History of Present Illness Esperanza Chaparro is a 66 year old male is presenting to the ED c/o weakness. Patient states yesterday he was sitting down and developed left leg weakness. He was too weak to stand up at that time. Symptoms began around 9 PM last night. Patient states he walks with a walker at baseline due to old strokes, but was unable to stand at that time. He has since regained strength in his left leg and is ableto ambulate. Patient arrived to [facility] with resolved symptoms. NIHSS 1 for dysarthria. CTH completed with no acute process. Medical history significant for old strokes x5, DM2, chronic low back pain. No past medical history on file. Past Surgical History: Procedure Laterality Date ??? Hernia Repair Allergy No Known Allergies Family History No family history on file. Social History Social History Socioeconomic History ??? Marital status: Single Tobacco Use ??? Smoking status: Current Every Day Smoker Packs/day: 1.00 ??? Smokeless tobacco: Never Used Substance and Sexual Activity ??? Alcohol use: Yes ??? Drug use: No Objective Patient Vitals for the past 8 hrs: BP Temp Pulse Resp SpO2 Height Weight 12/11/21 1226 -- -- 64 -- 98 % -- -- 12/11/21 1225 139/72 -- 69 -- -- -- -- 12/11/21 1152 146/82 97.1 ??F (36.2 ??C) 69 15 94 % 1.803 m (5' 11 ) 72.6 kg (160 lb) Exam: Cortical Function Mental Status Awake, alert, follows commands Orientation Person, place, time, and situation Language Speech slightly dysarthric Visual Orozco Intact bilaterally to confrontation Neglect No visual neglect noted, no tactile neglect noted Cranial Nerves II Pupils 3 mm and bilaterally reactive to light. Fundoscopic exam not performed. VIII Hearing is intact bilaterally to finger rub. III/IV/ Extraocular muscles intact. No diplopia, ptosis, nystagmus or convergence abnormalities noted. IX/X V Facial sensation symmetric to light touch and intact bilaterally. Corneal reflex not examined. XI VII No facial palsy noted. XII Motor Function Movement No abnormalities noted Bulk No abnormalities noted Tone No abnormalities noted Proximal Upper Distal Upper Proximal Lower Distal Lower Right 5/5 5/5 5/5 5/5 Left 5/5 5/5 5/5 5/5 Sensory Light Touch Symmetric and intact bilaterally Noxious Stimuli Not tested Temperature Not tested Cerebellar FNF RON HKS Right Intact Deferred Intact Left Intact Deferred Intact Gait Deferred Ischemic Stroke Documentation NIHSS Stroke Scale: Interval: Baseline Time: 1218 Person Administering Scale: Asya Hernandez MD 1a Level of consciousness 0 = Alert; keenly responsive. 1b LOC questions 0 = Answers both questions correctly. 1c LOC commands 0 = Performs both tasks correctly. 2 Best gaze 0 = Normal. 3 Visual 0 = No visual loss. 4 Facial Palsy 0 = Symmetrical movements. 5a Motor Left Arm 0 = No drift; limb holds 90 (or 45) degrees for full 10 seconds. 5b Motor Right Arm 0 = No drift; limb holds 90 (or 45) degrees for full 10 seconds. 6a Motor Left Leg 0 = No drift; leg holds 30 degree position for full 5 seconds. 6b Motor Right Leg 0 = No drift; leg holds 30 degree position for full 5 seconds. 7 Limb Ataxia 0 = Absent. 8 Sensory 0 = Normal; no sensory loss. 9 Best Language 0 = No aphasia; normal. 10 Dysarthria 1 = [id number] dysarthria; patient slurs at least some words and, at worst, canbe understood with some difficulty. 11 Extinction/Inattention 0 = No abnormality. Total - 1 tPA - INCLUSION criteria for treatment 0-3 hours from last known well: 1. Age greater than or equal to 18 years old? y 2. Clinical presentation consistent with acute ischemic stroke? y 3. Head CT excludes ICH as primary cause of stroke symptoms? y tPA - EXCLUSION criteria for treatment 0-3 hours from last known well: 1. Current intracranial hemorrhage or subarachnoid hemorrhage? n 2. Active internal bleeding? n 3. Recent (<3 months) intracranial/intra-spinal surgery or serious head trauma? n 4. Presence of intracranial conditions that may increase the risk of bleeding (some neoplasms, AVMs, or aneurysms)? n 5. Bleeding diathesis? n 6. Current severe uncontrolled hypertension? n tPA - Additional EXCLUSION criteria for treatment 3-4.5 hours from last known well: 1. Age greater than 80 years old? n 2. NIHSS greater than 25? n 3. History of stroke and diabetes mellitus? y 4. Oral anticoagulant use regardless of INR? n tPA was not given due to: LKW > 4.5 hours Tenecteplase Administered? No, Tenecteplase exclusion: Last Known Well > 4.5 Hours of Unknown Large Vessel Occlusion Suspected? No Hospital Problems on Admission: Hx of completed stroke POA: Yes DM2 (diabetes mellitus, type 2) POA: Yes Chronic low back pain POA: Yes Left leg weakness POA: Yes Primary hypertension POA: Yes Smoker POA: Yes Assessment Esperanza Chaparro is a 66 year old male presenting for transient left leg weakness that has since resolved. Patient has multiple risk factors for stroke, will obtain MRI/MRA Stroke Type: Ischemic Stroke Mechanism: Cardioembolic vs Large Artery vs Small Vessel/HTN Plan TIA/Stroke Workup; active - Patient will be admitted to the stroke service. - CTH, MRI Brain, MRA H/N - TTE and Telemetry; if TTE negative, consider CHRISTEN - HbA1C, Lipid Panel, Cardiac Enzymes - UA and UDS - NPO until passes swallow - q4h vitals and neurological checks - Start ASA 81mg along with Atorvastatin 40mg for secondary stroke prevention Blood Pressure Goals: Stroke/TIA without tPA < 220/120 Core Measures tPA administration: no Anti-thrombotic: y Statin: y DVT prophylaxis: pending Swallow Evaluation: pending PT/OT Evaluation: pending Smoking cessation; will debt management counselor: pending Cardiovascular #HTN - 12-lead EKG - Cardiac markers x 3 - Transthoracic ECHO ordered - Blood pressure goal: SBP < 220, DBP < 110 - PRN hydralazine IV and labetalol IV for SBP > 220, DBP > 110 - Hemodynamic monitoring - Maintain MAP ~ 65 Respiratory No acute issues - Maintain oxygen saturation > 92% - Monitor for respiratory distress Gastrointestinal No acute issues - SENIOR CONSTRUCTION ESTIMATOR swallow evaluation Renal/Electrolytes No acute issues - Monitor intake and output - Replete electrolytes as needed Hematology No acute issues - Transfuse for hemoglobin < 7.0 g/dL Endocrine #DM2 - HgbA1C - Accuchecks + SSI Infectious Disease No acute issues - Monitor for fevers - Cruz culture if febrile Musculoskeletal No acute issues Disposition - PT/OT pending Individual Modifiable Risk Factors Hypertension: yes Hyperlipidemia: yes Diabetes: yes Atrial Fibrillation: no Tobacco: yes Case discussed with Dr. Luna, Stroke Fellow Bravo Woodson APRN-POLITICAL DIRECTOR Associated attestation - Jorge Hall MD - 12/12/2021 1:31 PM CDT The above note was reviewed. [...] active problems not discussed in this note. Esperanza Chaparro is a 66 year old male with hx of HTN, HLD, DM, cigarette smoking, chronic ischemic stroke, CAD w/ cardiac stents, presenting for transient left leg weakness that has since resolved. Patient Vitals for the past 6 hrs: Temp Pulse Resp BP BP Method 12/12/21 1153 97.9 ??F (36.6 ??C) 61 18 171/79 Automatic 12/12/21 0926 -- -- -- 165/80 -- 12/12/21 0802 97.9 ??F (36.6 ??C) 60 18 179/75 Automatic Recent Labs Component Name 12/12/21 0205 CHOL 188 TRIG 216* HDL 33* LDLCALC 112* Recent Labs Component Name 12/11/21 1227 HGBA1C 7.1* Recent Labs Component Name 12/12/21 0205 12/11/21 1227 CREATININE 1.23* 1.40* Recent Labs Component Name 12/12/21 0205 12/11/21 1227 WBC 7.5 8.7 Problem List Hx of completed stroke POA: Yes DM2 (diabetes mellitus, type 2) POA: Yes Chronic low back pain POA: Yes Left leg weakness POA: Yes Primary hypertension POA: Yes Smoker POA: Yes Jorge Hall MD Vascular and Interventional Neurology documented in this encounter Consult Notes * Zaira Conti, MIKE/AARON - 12/12/2021 2:02 PM CDTAssociated Order(s): IP CONSULT TO NUTRITIONAL SERV Initial Nutrition Assessment Brief Synopsis: Patient is at Nutrition Risk; Specific criteria can be found in assessment below Nutrition Plan: Continue Cardiac/Diabetic Consistent Carb diet. Recommendations to Physician: none Comments: RD consulted per stroke protocol. Stroke workup active, pt with hx of multiple strokes and T2DM. staff development educator consulted per protocol, see HgbA1c below. Attempted to visit with pt, other staff members in room at time of attempt. Pt passed RN swallow study, diet advanced, see above. Reported intake noted in chart is 100% of meals. No BM noted in chart, unsure of LBM. Hyperglycemia (183) noted early this am. Will continue to follow. Assessment: Med/Surg History and Clinical Diagnoses: transient left leg weakness; PMH: HTN, HLD, DM, cigarette smoking, chronic ischemic stroke, CAD w/ cardiac stents Height: 5' 11 (180.3 cm) Weight: 160 lb (72.6 kg) BMI: Body mass index is 22.32 kg/m??. BMI Range: Normal IBW/lb (Calculated) Male: 172 , Recent Weights/Methods 03/09/2017 0826 06/01/2017 0831 12/11/2021 1152 Weight: 230 lb (104.3 kg) 230 lb (104.3 kg) 160 lb (72.6 kg) Weight Method (Utilize Scales): -- -- Stated Wt Comments: Limited wt hx, unsure of accuracy. Recommend weighing pt standing or utilizing bedscale. Diet order accuracy Current diet order: Consistent Carb Standard;Cardiac Standard Nutrition recommendation: agree with current nutrition order P.O.Intake for the past 48 hrs: % Meal Taken Av % Min: 100 % Max: 100 % Supplement(s) Consumed- Last 48 hours None Food Allergies: No known food allergies GI Concerns: None Chewing/Swallowing: None Estimated Needs: KCAL: 1815-2178kcal (25-30kcal/kg (ABW)) Protein (g): 73-87g (1.0-1.2g/kg (ABW)) Fluid (ml): 1 ml/kcal Needs based on: Kcal/kg- (Comment) (ABW: 160lb (72.6kg); EMR, stated) Recommended Access Route: PO Laboratory values: Recent Labs Component Name 12/12/21 0205 12/11/21 1227 12/11/21 1214 BUN 19 20 - CREATININE 1.23* 1.40* - NA 136 135* - POTASSIUM 4.0 4.4 - CL 99 99 - CO2 24 27 - GLUCOSE 183* 188* - CALCIUM 9.5 9.7 - PROT - 7.2 - ALB - 3.7 - TBILI - 0.7 - ALKPHOS - 68 - ALT - 11 - AST - 13 - ANIONGAP 17 13 - BCR 15 14 - OSMOLALITY 289 288 - AGRATIO - 1.1 - EGFR 65* 56* 64* Medications: Current Facility-Administered Medications Medication ??? 0.9% NaCl infusion ??? 0.9% NaCl injection 3 mL And ??? 0.9% NaCl injection 1-10 mL ??? 0.9% NaCl injection 3 mL And ??? 0.9% NaCl injection 1-10 mL ??? aspirin chew tablet 81 mg ??? atorvastatin (Lipitor) tablet 40 mg ??? clopidogrel (plaVIX) tablet 75 mg ??? heparin injection 5,000 Units ??? nicotine (Nicoderm CQ) patch 14 mg Education needed: Mediterranean;Consistent Carb Education Provided: Handout Provided (Attached to mychart) Nutrition Care Process (1) Nutrition Diagnostic Statement: No nutrition diagnosis identified Monitoring: PO intake, labs, weight, BM, and meds Zaira Conti RDN, PRESTONN Ascom [phone] * Sarah Mcginnis RN - 12/12/2021 1:40 PM CDT Inpatient [facility] Note Today's Date: 12/12/21 Esperanza Chaparro is a 66 year old male currently hospitalized. A consult with Diabetes Education was requested due to . Esperanza Wilkins's per stroke protocol HgbA1c = 7.1% Current Hospitalization Concerns: Patient admitted to hospital with left sided weakness, stroke. Patient is out of room for CT scan. Diabetes education packet left at bedside. Recent Labs: Pertinent labs were reviewed. A1c 7.4% on 12/11/2021. Participant Reported Labs/Blood Glucose Control: Compliance With Medications: Education/Support: Education efforts focused on diabetes education, patient is currently out of room for CT scan.. Esperanza Wilkins's overall adherence potential is assessed as follows: Thank you for the opportunity to participate in your patient's care. Sarah Mcginnis, AGGIE, , [facility] * Naima Doyle RN - 12/12/2021 1:25 PM CDTAssociated Order(s): IP CONSULT TO GEOGRAPHY TEACHER; IP CONSULT TO GEOGRAPHY TEACHER Images from the original note were not included. I have been consulted due to the possibility or diagnosis of stroke, chart reviewed. Patient Name: Esperanza Chaparro Arrival: Start: Start (12/11/211155) Last Known Well: 12/10/2021 2100 Code Stroke: Yes Arrival Mode: Personal Transportation Initial NIHSS Score: NIH Total: 1 (12/11/21 1215) Last Documented NIHSS Score: NIH Total: 0 (12/12/21 0800) Initial Blood Pressure: BP: 146/82 (12/11/21 1152) Current Blood Pressure: BP: 171/79 (12/12/21 1153) Stroke Risk Factors: Age, Diabetes mellitus, Hyperlipidemia, Hypertension, Prior history of Stroke/Transient Ischemic Attack and Tobacco use Quality Measures - Risk Factor Modification Antithrombotic by day 2: Received Antithrombotic: Aspirin and Plavix (clopidogrel) VTE Prophylaxis by day 2: Received VTE Prophylaxis: Heparin Anticoagulant if in Afib: NA LDL= Recent Labs Component Name 12/12/21 0205 LDLCALC 112* High Intensity Statin: Received HGBA1C = Recent Labs Component Name 12/11/21 1227 HGBA1C 7.1* Appropriate Diet for patient based on HgBA1c: Diabetic/Cardiac I) HGBA1C >6.5 Supply Chain Planner has been consulted per protocol to provide the patient with appropriate educational resources to better manage stroke risk factors. Nursing Swallow Screen: Total Score of questionnaire (6 or greater did not advance to the water test): Total Row: 0 (12/11/21 121) Water Test Results: Pass - (NO clinical signs of aspiration noted) - Obtain diet order. (12/11/21 121) Evaluated by Therapy: Received Discharge Recommendation: Home Health PT/OT Written Stroke Education: Provided Education Personalized: Received Depression Screen Score = Received PHQ-2 PHQ2 TOTAL SCORE: 0 PHQ-9 Nursing pending course of action: 1) Complete stroke/TIA education daily. 2) Individualize stroke care plan, document daily. 3) Complete neuro checks and document as ordered by MD. 4) Complete NIHSS per MD orders. (If patient has an NIHSS deviation of 4 or greater from baseline, or per nursing judgement, please call Neurologist and repeat swallow screen evaluation.) Imaging: MRI ANGIO BRAIN ARTERIAL WO CONT Result Date: 12/12/2021 IMPRESSION: 1.Areas of the evolving infarction with cortical laminar necrosis also noted in right frontal lobe. Areas of restricted diffusion noted in the right frontal lobe including the right precentral gyrus/and paracentral lobule suggesting superimposed acute infarction. 2.Evolving chronic to subacute infarcts noted in the right parietal, temporo-occipital regions with tiny foci of associatedsusceptibility. These could be secondary to chronic hemosiderin staining versus petechial hemorrhages. 3.Occlusion of the right internal carotid artery from its origin with reconstitution from the cavernous segment. Slow flow is noted in the right distal cavernous, ICA terminus, proximal right MCA u pto the bifurcation on [id number] imaging with the opacification on postcontrast imaging. The report was drafted by Maryana Sanderson MD (Meat Cooler). Critical results discussed with Dr. Becker by Dr. Sanderson on 12/12/2021 at 8:41 AM. I, Re Sage Dr have personally reviewed and interpreted this examination/study. > Interpreting Provider: Re Sage Dr on 12/12/2021 10:13 AM MRI ANGIO NECK W CONTRAST Result Date: 12/12/2021 IMPRESSION: 1.Areas of the evolving infarction with cortical laminar necrosis also noted in right frontal lobe. Areas of restricted diffusion noted in the right frontal lobe including the right precentral gyrus/and paracentral lobule suggesting superimposed acute infarction. 2.Evolving chronic to subacute infarcts noted in the right parietal, temporo-occipital regions with tiny foci of associatedsusceptibility. These could be secondary to chronic hemosiderin staining versus petechial hemorrhages. 3.Occlusion of the right internal carotid artery from its origin with reconstitution from the cavernous segment. Slow flow is noted in the right distal cavernous, ICA terminus, proximal right MCA u pto the bifurcation on [id number] imaging with the opacification on postcontrast imaging. The report was drafted by Maryana Sanderson MD (Meat Cooler). Critical results discussed with Dr. Becker by Dr. Sanderson on 12/12/2021 at 8:[address] have personally reviewed and interpreted this examination/study. > Interpreting Provider: Re Sage Dr on 12/12/2021 10:13 AM MRI BRAIN NON CONTRAST Result Date: 12/12/2021 IMPRESSION: 1.Areas of the evolving infarction with cortical laminar necrosis also noted in right frontal lobe. Areas of restricted diffusion noted in the right frontal lobe including the right precentral gyrus/and paracentral lobule suggesting superimposed acute infarction. 2.Evolving chronic to subacute infarcts noted in the right parietal, temporo-occipital regions with tiny foci of associatedsusceptibility. These could be secondary to chronic hemosiderin staining versus petechial hemorrhages. 3.Occlusion of the right internal carotid artery from its origin with reconstitution from the cavernous segment. Slow flow is noted in the right distal cavernous, ICA terminus, proximal right MCA u pto the bifurcation on [id number] imaging with the opacification on postcontrast imaging. The report was drafted by Maryana Sanderson MD (Meat Cooler). Critical results discussed with Dr. Becker by Dr. Sanderson on 12/12/2021 at 8:[address] have personally reviewed and interpreted this examination/study. > Interpreting Provider: Re Sage Dr on 12/12/2021 10:[address] BRAIN STROKE Result Date: 12/11/2021 IMPRESSION: 1. No acute intracranial hemorrhage. 2. Suspect a heterogeneous mass in the sella. Consider further evaluation with a brain MRI with and without contrast using a dynamic pituitary protocol. The findings were discussed by Dr. Segal with Dr. Becker at 1221 hours on 12/11/2021. > Interpreting Provider: Lauren Segal MD on 12/11/2021 12:25 PM Thank you for allowing me to participate in the care of Esperanza Chaparro. SHAN RayaN, CNRN, SCRN Instructor Pilot, [facility] Office: [phone] Ascom: [phone] Email: [email or web address] * Ananya Art RN - 12/12/2021 9:09 AM CDTAssociated Order(s): IP CONSULT TO PHYSICAL MED AND REHAB [facility] Rehab has initiated an evaluation per stroke protocol. Will continue to follow for medical stability and tolerance/participation in therapies. Thank you for the referral. Ananya Art RN, BSN Clinical Liaison [facility] [phone] documented in this encounter ED Notes * Kaz Ziegler RN - 12/11/2021 10:41 PM CDT Handoff report called to Nora MARCIAL on 5N * John Spence MD - 12/11/2021 6:25 PM CDT ASSUMED CARE NOTE Patient signed out to me by Dr. Snowden at 6:00 PM. Briefly, Esperanza Chaparro is a 66 year old male is being evaluated for acute onset left LE weakness. He has a history of CVA with residual right sided deficits. At this time the patient's condition is Stable. Thus far, studies reveal glucose of 188 and no acute intracranial hemorrhage. Pending bed available. Plan is to admit to Stroke. Vitals: 12/11/21 1226 12/11/21 2200 12/11/21 2232 12/11/21 2301 BP: 160/77 173/79 Pulse: 64 59 66 Resp: 18 18 Temp: 97.7 ??F (36.5 ??C) 97.4 ??F (36.3 ??C) SpO2: 98% 95% 97% Weight: Height: ED Course: 23:45 -- Patient at this time has a bed assigned with Stroke Neurolgoy service. Patient to be transferred to their inpatient bed. Clinical Impression: 1. Left leg weakness Disposition: Admit to Stroke Neurology By signing my name below, I, Rebecca Arnett, attest that this documentation has been prepared underthe direction and in the presence of Dr. Spence. Signed: Mer Munguia. I, Dr. Spence, personally performed the services described in this documentation. All medical record entries made by the scribe were at my direction and in my presence. I have reviewed the chart and agree that the record reflects my personal performance and is accurate and complete. * Corin Brennan RN - 12/11/2021 5:40 PM CDT Per Stroke Team, q 4 Neuro checks. Diet order after pt passes dysphagia screen * Marquis Coley RN - 12/11/2021 5:04 PM CDT Bed: [facility] Expected date: Expected time: Means of arrival: Comments: Anahy * Fidel Mccormick RN - 12/11/2021 5:03 PM CDT Gave report to Corin MARCIAL. Answered all questions, no concerns from nurse. Will turnover care at this time. * Josh Christy RN - 12/11/2021 12:25 PM CDT Code stroke paged @ 1210 per MD Snowden. * Josh Christy RN - 12/11/2021 12:10 PM CDT First Slice CT heads obtained at 1210. * Opal Davey RN - 12/11/2021 12:[address] Snowden, sent pt to CT scan to get a 1st slice, Dr. Snowden to talk to stroke. supervisor audit clerks aware. * Ketan Snowden MD - 12/11/2021 11:56 AM CDT ED Attending Note History: Esperanza Chaparro is a 66 year old male is presenting to the ED c/o weakness. Patient states yesterday he was sitting down and developed left sided weakness. He was too weak to stand up at that time. Symptoms began around 9 PM last night with left leg weakness. Patient states he walks with a walker at baseline but was unable to stand at that time. He has since regained strength in his left leg and isable to ambulate. He reports baseline left hand numbness and weakness due to neuropathy. Denies vision changes or speech changes. Patient also reports history of chronic low back pain and multiple spinal surgeries. He states he has been experiencing more pain in his lower back recently. No fever, chills, cough, chest pain, shortness of breath, abdominal pain, or N/V/D. Patient reports history of stroke x5 in the past. Other PMHx of DM. [facility] him to come here instead if he had concerns for stroke-like symptoms. No other questions or complaints at this time. No past medical history on file. Past Surgical History: Procedure Laterality Date ??? Hernia Repair Social History Socioeconomic History ??? Marital status: Single Spouse name: Not on file ??? Number of children: Not on file ??? Years of education: Not on file ??? Highest education level: Not on file Occupational History ??? Not on file Tobacco Use ??? Smoking status: Current Every Day Smoker Packs/day: 1.00 ??? Smokeless tobacco: Never Used Substance and Sexual Activity ??? Alcohol use: Yes ??? Drug use: No ??? Sexual activity: Not on file Other Topics Concern ??? Not on file Social History Narrative ??? Not on file Social Determinants of Health Financial Resource Strain: Not on file Food Insecurity: Not on file Transportation Needs: Not on file Physical Activity: Not on file Stress: Not on file Social Connections: Not on file Intimate Partner Violence: Not on file Housing Stability: Not on file Review of Systems: Review of Systems Constitutional: Negative for chills, fever and malaise/fatigue. HENT: Negative for congestion and sore throat. Eyes: Negative for blurred vision and pain. Respiratory: Negative for cough and shortness of breath. Cardiovascular: Negative for chest pain, palpitations and leg swelling. Gastrointestinal: Negative for abdominal pain, diarrhea, nausea and vomiting. Genitourinary: Negative for dysuria, frequency and hematuria. Musculoskeletal: Negative for back pain and neck pain. Skin: Negative for itching and rash. Neurological: Positive for weakness (resolved). Negative for dizziness, focal weakness and headaches. Patient Vitals for the past 6 hrs: Temp Pulse Resp BP 12/11/21 1226 -- 64 -- -- 12/11/21 1225 -- 69 -- 139/72 12/11/21 1152 97.1 ??F (36.2 ??C) 69 15 146/82 Exam: Physical Exam Vitals and nursing note reviewed. Constitutional: General: He is awake. He is not in acute distress. Appearance: He is well-developed and well-groomed. HENT: Head: Normocephalic and atraumatic. Mouth/Throat: Mouth: Mucous membranes are moist. Eyes: Conjunctiva/sclera: Conjunctivae normal. Pupils: Pupils are equal, round, and reactive to light. Cardiovascular: Rate and Rhythm: Normal rate and regular rhythm. Pulses: Normal pulses. Heart sounds: Normal heart sounds. Pulmonary: Effort: Pulmonary effort is normal. No respiratory distress. Breath sounds: Normal breath sounds. No wheezing. Abdominal: General: There is no distension. Palpations: Abdomen is soft. Tenderness: There is no abdominal tenderness. There is no guarding or rebound. Musculoskeletal: General: Normal range of motion. Cervical back: Normal range of motion and neck supple. Skin: General: Skin is warm and dry. Neurological: Mental Status: He is alert and oriented to person, place, and time. Comments: Moving all extremities. BLE strength symmetric. Sensation intact to light touch throughout. Speech normal. Visual orozco intact. Medical Decision Makin. Transient LLE weakness Plan: Stroke neurology team at bedside on patient arrival, FSG, stat head CT, labs, UA, infectious workup, further imaging and treatment per neurology team, likely admission Results: Labs Reviewed CBC W AUTO DIFFERENTIAL - Abnormal; Notable for the following components: Result Value MPV 8.8 (*) Neutrophils % 76.0 (*) Lymphocytes % 16.0 (*) All other components within normal limits COMPREHENSIVE METABOLIC PANEL - Abnormal; Notable for the following components: Creatinine 1.40 (*) Sodium 135 (*) Glucose 188 (*) eGFR by CKD-EPI 56 (*) All other components within normal limits TROPONIN I - Abnormal; Notable for the following components: Troponin I 0.042 (*) All other components within normal limits GLUCOSE - POINT OF CARE - Abnormal; Notable for the following components: Glucose WB/POC 174 (*) All other components within normal limits CREATININE - POCT INTERFACED - Abnormal; Notable for the following components: eGFR 64 (*) All other components within normal limits PT-INR [facility] - Normal PTT [facility] - Normal TROPONIN I - Normal HEMOGLOBIN A1C TROPONIN I TROPONIN I TROPONIN I INR WHOLE BLOOD - POINT OF CARE (IP) STROKE CREATININE BLOOD - POCT (IP) [facility] TYPE + SCREEN PANEL BLOOD TYPE VERIFICATION CT BRAIN STROKE Final Result PROCEDURE: CT BRAIN STROKE, DATE/TIME OF EXAM: 12/11/2021 12:24 PM, LOCATION [facility] INDICATION: R29.898: Left leg weakness ADDITIONAL CLINICAL INFORMATION: Ordering Provider Reason For Exam: CVA Technologist Note: Additional: COMPARISON: None. TECHNIQUE: Noncontrast CT brain was performed utilizing standard protocol. CT dose reduction technique was used, including Automated Exposure Control. FINDINGS: Parenchyma: No parenchymal hemorrhage. The orozco-white differentiation is distinct. There is a cystic encephalomalacia in the high right frontal and parietal lobes and in the right temporal occipital region represents an old MCA watershed infarcts. Several chronic lacunar infarcts are also demonstrated in the bilateral cerebellar hemispheres. There is no mass lesion or mass effect. Extraaxial Spaces: Normal for age. No subdural or epidural collections identified. There is a heterogeneous masslike area in the region of the sella with thinning of the left sellar wall. Ventricles: The ventricles are midline. There is mild generalized cerebral volume loss, in keeping with the patient's age. Orbits: Postsurgical changes from cataract extractions are seen in the globes. Sinuses: The imaged paranasal sinuses and mastoids are clear. Bones: No evidence of fracture or calvarial defect. The temporomandibular joints are well aligned. Other: Mild intracranial atherosclerosis is seen. IMPRESSION: 1. No acute intracranial hemorrhage. 2. Suspect a heterogeneous mass in the sella. Consider further evaluation with a brain MRI with and without contrast using a dynamic pituitary protocol. The findings were discussed by Dr. Segal with Dr. Becker at 1221 hours on 12/11/2021. > Interpreting Provider: Lauren Segal MD on 12/11/2021 12:25 PM MRI BRAIN NON CONTRAST (Results Pending) MRI ANGIO BRAIN ARTERIAL WO CONT (Results Pending) MRI ANGIO NECK W CONTRAST (Results Pending) EKG Interpretation: Interpreted by me: Date: 12/11/2021 R&R: Sinus bradycardia with a ventricular rate of 57 bpm Additional findings: Non-specific T-wave changes No acute ischemia ED course: The patient's Oxygen Saturation Monitor was interpreted by me. The reading was 98%. The patient wason RA at the time of the reading. This is interpreted as normal. 12:14 PM- Code stroke activated 1:25 PM- CT head negative for acute process. Stroke neurology has evaluated patient and will admit to their service for further evaluation -Labs reviewed- Cr 1.40, troponin 0.042. no baseline for comparison. Will continue to monitor 6:20 PM- Signed out to Dr. Spence, pending bed availability Consult Yes -Stroke neurology Procedure done at this time No Ultrasound done at this time No Orders Placed This Encounter ??? CT BRAIN STROKE ??? MRI BRAIN NON CONTRAST ??? MRI ANGIO BRAIN ARTERIAL WO CONT ??? MRI ANGIO NECK W CONTRAST ??? CBC W AUTO DIFFERENTIAL ??? COMPREHENSIVE METABOLIC PANEL ??? PT-INR [facility] ??? PTT [facility] ??? TROPONIN I ??? TROPONIN I ??? BASIC METABOLIC PANEL (CALCIUM TOTAL) ??? CBC W/O DIFFERENTIAL ??? TROPONIN I ??? HEMOGLOBIN A1C ??? LIPID PROFILE ??? CONSULT TO GEOGRAPHY TEACHER ??? CONSULT TO VASCULAR NEUROLOGY ??? IP CONSULT TO CASE MANAGEMENT ??? IP CONSULT TO NUTRITIONAL SERV ??? IP CONSULT TO GEOGRAPHY TEACHER ??? CONSULT TO REHAB ??? CREATININE BLOOD - POCT (IP) [facility] ??? INR WHOLE BLOOD - POINT OF CARE (IP) STROKE ??? EKG 12-LEAD ??? AND Linked Order Group ??? 0.9% NaCl injection 3 mL ??? 0.9% NaCl injection 1-10 mL ??? AND Linked Order Group ??? 0.9% NaCl injection 3 mL ??? 0.9% NaCl injection 1-10 mL ??? iopamidol (Isovue 370) contrast ADS Med ??? heparin injection 5,000 Units ??? atorvastatin (Lipitor) tablet 40 mg ??? OR Linked Order Group ??? aspirin chew tablet 81 mg ??? aspirin suppository 300 mg ??? OR Linked Order Group ??? aspirin chew tablet 81 mg ??? aspirin suppository 300 mg ??? perflutren lipid microsphere (Definity) injection 0.5 mL ??? 0.9% NaCl injection 10 mL Medications 0.9% NaCl injection 3 mL (3 mL Intracatheter $ Given 12/11/21 1342) And 0.9% NaCl injection 1-10 mL (has no administration in time range) 0.9% NaCl injection 3 mL (3 mL Intracatheter Not Administered 12/11/21 1342) And 0.9% NaCl injection 1-10 mL (has no administration in time range) iopamidol (Isovue 370) contrast ADS Med (has no administration in time range) heparin injection 5,000 Units (5,000 Units Subcutaneous $ Given 12/11/21 1342) atorvastatin (Lipitor) tablet 40 mg (has no administration in time range) aspirin chew tablet 81 mg (has no administration in time range) Or aspirin suppository 300 mg (has no administration in time range) perflutren lipid microsphere (Definity) injection 0.5 mL (0.5 mL Intravenous $ Given 12/11/21 1435) 0.9% NaCl injection 10 mL (10 mL Intracatheter $ Given 12/11/21 1431) aspirin chew tablet 81 mg (81 mg Oral $ Given 12/11/21 1341) Or aspirin suppository 300 mg ( Rectal See Alternative 12/11/21 134) Clinical Impression: 1. Left leg weakness Disposition: Admit to stroke neurology- bed pending Signed out to Dr. Spence By signing my name below, I, Charles Segovia, attest that this documentation has been prepared under the direction and in the presence of Dr. Snowden. Signed: Mer Rai. I, Dr. Snowden, personally performed the services described in this documentation. All medical record entries made by the scribe were at my direction and in my presence. I have reviewed the chart and agree that the record reflects my personal performance and is accurate and complete. documented in this encounter Miscellaneous Notes * Clinical References AVS - Zaira Conti RD/AARON - 12/12/2021 1:57 PM CDT 65014 Diabetes: Learning About Serving and Portion Sizes Servings and portions. What?s the difference? These terms can be very confusing. But learning to measure serving sizes can help you figure out how many carbohydrates (carbs) and other foods you eat each day. They're also powerful tools for managing your weight. A good rule of thumb: Devote half your plate to vegetables and green salad. Split the other half between protein and starchy carbohydrates. Fruit makes a good dessert. Servings and portions Many different words are used to describe amounts of food. If your healthcare provider uses a term you?re not sure of, don?t be afraid to ask. It helps to know the difference between servings and portions: ?? A serving size. This is a fixed size. Food producers use this term to describe their products. For example, the label on a cereal box could say that 1 cup of dry cereal = 1 serving. ?? A portion (also called a helping). This is how much you eat or how much you put on your plate mary kay meal. For instance, you might eat 2 cups of cereal at breakfast. Watching serving sizes The portion you choose to eat (such as 2 cups of cereal) may be more than 1 serving as listed on the food label (such as 1 cup of cereal). That?s why it helps to measure or weigh the food you eat. Because the food label values are based on servings, you?ll need to know how many servings you eat at 1 sitting. When you?re planning for a snack or a meal, keep servings in mind. If you don?t have measuring cupsor a scale handy, there are ways to figure out serving sizes. For instance, you can compare the food to the size of your hand (see pictures below). Here are some general tips: ?? About 3 ounces of meat fits in the palm of your hand ?? 1 cup of food is about the size of your fist ?? An open hand holds about 1 to 2 ounces of nuts Ounces: 2 to 3 ounces is about the size of your palm. 1 cup: 1 cup (or a medium-sized piece) is about the size of your fist. 1/2 cup: 1/2 cup is about the size of your cupped hand. Managing portion sizes If your weight is a concern, reducing your portions can help. A portion is the amount of each type of food on your plate. You can eat more than 1 serving of a food at once. But to keep from eating too much at 1 meal, learn how to manage your portions. Portion control will also help with blood sugarmanagement. Last Reviewed Date: 2021 ?? [id number] [employer]. All rights reserved. This information is not intended as a substitute for professional medical care. Always follow your healthcare professional's instructions. * Clinical References AVS - Zaira Conti RD/LDN - 12/12/2021 1:56 PM CDT [id number] Diet: Diabetes Food is an important tool that you can use to control diabetes and stay healthy. Eating well-balanced meals in the correct amounts will help you control your blood glucose levels and prevent low blood sugar reactions. It will also help you reduce the health risks of diabetes. There is no one specific diet that is right for everyone with diabetes and you can eat a variety of foods. But there are general guidelines to follow. A registered dietitian (MIKE) will create a tailored diet approach that?sjust right for you. They will also help you plan healthy meals and snacks. If you have any questions, call your dietitian for advice. Guidelines for success Talk with your healthcare provider before starting a diabetes diet or weight loss program. If you haven't talked with a dietitian yet, ask your provider for a referral. The following guidelines can help you succeed: ?? Select foods from the 6 food groups below. Your dietitian will help you find food choices withineach group. He or she will also show you serving sizes and how many servings you can have at each meal. o Grains, beans, and starchy vegetables o Vegetables o Fruit o Milk or yogurt o Meat, poultry, fish, or tofu o Healthy fats ?? Check your blood sugar levels as directed by your provider. Take any medicine as prescribed by your provider. ?? Learn to read food labels and pick the right portion sizes. ?? Limit carbohydrates at each meal to help manage your diabetes. The carbohydrates you eat become glucose in the blood. This does not mean you can't eat carbohydrates. Talk with your healthcare provider about how many grams of carbohydrates are recommended for you at each meal. Eat 3 meals a day, at consistent times. Don't skip meals. If you are hungry between meals, eat a small, low-carbohydrate snack. ?? Talk with your healthcare provider if you drink alcohol. Alcohol can have unpredictable effects on blood glucose. It's also high in empty calories and can raise a type of blood fat called triglycerides. Drink water or calorie-free diet drinks instead. ?? Eat less fat to help lower your risk of heart disease. Use nonfat or low-fat dairy products and lean meats. Avoid fried foods. Use cooking oils that are unsaturated, such as olive, canola, or peanut oil. ?? Don't eat foods with added salt. Salt can contribute to high blood pressure, which can cause heart disease. People with diabetes already have a risk for high blood pressure and heart disease. ?? Stay at a healthy weight. If you need to lose weight, cut down on your portion sizes. But never skip meals. Exercise is an important part of any weight management program. Talk with your provider about an exercise program that?s right for you. ?? For more information about the best diet plan for you, talk with an RD. To find an RD in your area, contact: o Academy of Nutrition and Dietetics at www.eatright.org o [place] [employer] at www.diabetes.org or 970-527-9412 o Association of Diabetes [employer] and Education Specialists at www.diabeteseducator.org/ Last Reviewed Date: 2021 ?? [id number] [employer]. All rights reserved. This information is not intended as a substitute for professional medical care. Always follow your healthcare professional's instructions. * Clinical References AVS - Zaira Conti RD/LDN - 12/12/2021 1:55 PM CDT 22649 Understanding the Mediterranean Diet A Mediterranean-style diet is a healthy way of eating, not a specific diet to lose weight. It includes a lot of foods from plants such as vegetables, fruits, and whole grains, plus olive oil and seafood. It also includes dairy foods and meats, but in smaller amounts. And it includes a moderate amount of wine. Many studies over time have shown health benefits to eating this way. It focuses on making fresh food that?s full of flavor. This plan of eating is inspired by how people eat in countries around the [place]. They include [place], [place], [place], [place], [place], and [place]. But it uses foods you can buy in almost any grocery store. Health benefits of a Mediterranean diet This diet is high in fiber, lean protein, and healthy oils. It?s low in saturated fats and sugar. The diet has been shown to help prevent or manage: ?? Depression ?? Diabetes ?? Heart disease ?? High blood pressure ?? Parkinson disease ?? Alzheimer disease ?? Cancers of the colon, prostate, and breast What do I eat on a Mediterranean diet? Plan each meal around vegetables and whole grains. Use olive oil. Add nuts and legumes. Include fish or lean protein. Foods to focus your meals around include: Food type What to eat Vegetables This includes leafy greens, tomatoes, squash, peppers, cucumbers, green beans, eggplant,avocados, potatoes, and olives. You can use fresh or frozen vegetables. Fruits This includes apples, raspberries, strawberries, grapes, citrus fruit such as oranges and grapefruit, stone fruit such as apricots and peaches, plus figs, dates, and melon. Whole grains This includes brown rice, whole oats, quinoa, millet, whole grain bread, whole-wheat pasta, and crackers made with whole grains. Beans and legumes These include lentils, chickpeas, and beans such as sloan, rossana, kidney, and black beans. Peanuts are also legumes. Seafood This includes fish such as salmon, trout, mackerel, reynaldo, tuna, sardines, anchovies, andwhitefish. It also includes shellfish such as shrimp, oysters, mussels, and clams. Nuts and seeds These include walnuts, almonds, sunflower seeds, cashews, brazil nuts, and pecans. Healthy oil [place] oil is the most common oil in the Mediterranean diet. But other healthy oils are canola, sunflower, safflower, and corn oils. Herbs and spices Season food with oregano, pepper, mayr lou, tarragon, thyme, basil, cinnamon, and cumin. Wine Enjoy a glass of wine each day with a meal. Skip this if you need to not have alcohol for any reason. Foods to eat in smaller amounts You can add these foods in a few days a week, in smaller amounts: ?? Dairy foods, such as cheese, yogurt, and butter ?? Poultry, such as chicken and duck ?? Eggs Occasional treats Limit these foods in your weekly eating plan: ?? Red meats, such as beef, escamilla, and pork ?? Refined grains, such as white rice and foods made with white flour ?? Sugary treats, such as chocolate, candy, or pastries Adding lots of flavor You can liven up fresh foods with many kinds of flavor. Try these sauces, dips, and seasonings: ?? Hummus ?? Marinara sauce ?? Salsa ?? Vinaigrette dressing Tips for eating out At restaurants: ?? Skip fried foods. These have a lot of saturated fat. ?? Look for fish dishes that are cooked without cream or butter. ?? Pick salads that have nuts and seeds. ?? Choose vegetarian options that don?t have too much cheese. Last Reviewed Date: 2019 ?? [id number] [employer]. All rights reserved. This information is not intended as a substitute for professional medical care. Always follow your healthcare professional's instructions. * Clinical References JORDON - Naima Doyle RN - 12/12/2021 1:40 PM CDT 27227 Carotid Artery Problems: Stroke The carotid arteries [...] or stroke symptoms. Call 911 right away. F.A.S.T. F.A.S.T. is an easy way to remember the signs of a stroke or TIA. When you see these signs, call 911 fast. F.A.S.T. stands for: ?? F is for face drooping. One [...] first appeared. Last Reviewed Date: 2021 ?? [id number] [employer]. All rights reserved. This information is not intended as a substitute for professional medical care. Always follow your healthcare professional's instructions. * Clinical References AVS - Naima Doyle RN - 12/12/2021 1:39 PM CDT 79286 What Is Ischemic Stroke? The brain needs [...] and your doctor as soon as possible. F.A.S.T. is an easy way to remember the signs of a stroke. When you see the signs, you will know what you need to call 911 fast. F.A.S.T. stands for: ?? F is for face drooping. One [...] first appeared. Last Reviewed Date: 2021 ?? [id number] [employer]. All rights reserved. This information is not intended as a substitute for professional medical care. Always follow your healthcare professional's instructions. * Clinical References AVS - Naima Doyle RN - 12/12/2021 1:38 PM CDT 55552 Understanding the Link Between High Blood Pressure and Stroke Each day that your blood pressure is too high, your chances of having a stroke are increased. Normal blood pressure is less than 120/80 millimeters of mercury (mmHg). This means systolic of less [id number] mmHg and diastolic of less than 80 [...] blood flow in the vessel. Vessels break Sometimes blood flows with enough force to weaken a vessel wall. If the vessel is small or damaged,the wall can break. When this happens, blood leaks into nearby tissue and kills cells. Other cells may because blood cannot reach them. Know the symptoms of stroke During a stroke, blood supply to the brain is suddenly cut off. But with fast medical help, a better recovery is more likely. Don?t wait. Call 911 if you have any of these: ?? Sudden weakness or numbness on 1 side of the face or body, including a leg or an arm ?? Sudden trouble seeing with 1 or both eyes ?? Sudden double vision ?? Sudden trouble talking, such as slurred speech ?? Sudden severe headache ?? Sudden problems using or understanding words ?? Sudden confusion ?? Sudden dizziness or loss of balance ?? Seizures for the first time ?? Any of these symptoms that happen and then go away Last Reviewed Date: 2019 ?? [id number] [employer]. All rights reserved. This information is not intended as a substitute for professional medical care. Always follow your healthcare professional's instructions. * Clinical References AVS - Naima Doyle RN - 12/12/2021 1:38 PM CDT Quitting Smoking (Smoking Cessation) - Video Quitting smoking can be hard and frustrating. But there are many ways to stop, and with trial and error you can find a method that works for you. No matter which method you choose, here are some strategies that can help you along the way. To view the video go to this web address: https://bit.ly/68lmRR0 Or, scan this QR code with your smart phone ?? 2019 [id number]. * Clinical References AVS - Naima Doyle RN - 12/12/2021 1:38 PM CDT [id number] How to Quit Smoking Smoking is a hard habit to break. About half of all people who've ever smoked have been able to quit. Most people who still smoke want to quit. Here are some of the best ways to stop smoking. Keep in mind the health benefits of quitting The health benefits of quitting start right away. They keep improving the longer you go without smoking. Knowing this can help inspire you to stay on track. These benefits occur at any age. If you're17 or 70, quitting is a good choice. Some of the health benefits after your last cigarette include: ?? After 20 minutes: Your blood pressure and pulse return to normal. ?? After 8 hours: Your oxygen levels return to normal. ?? After 2 days: Your ability to smell and taste start to improve as damaged nerves regrow. ?? After 2 to 3 weeks: Your circulation and lung function improve. ?? After 1 to 9 months: Your coughing, congestion, and shortness of breath decrease. Your tirednessdecreases. ?? After 1 year: Your risk of heart attack decreases by 50%. ?? After 5 years: Your risk of lung cancer decreases by 50%. Your risk of stroke becomes the same as a nonsmoker?s. What about going cold turkey? You may have heard about quitting cold turkey. This means stopping all at once. Going cold turkeyis an option. But it's not the most successful way to quit smoking. Also, trying to cut back slowlyoften doesn't work as well. This may be because it continues the habit of smoking. You may also inhale more smoke while smoking fewer cigarettes. This leads to the same amount of nicotine in your body. But quitting cold turkey or cutting back slowly aren't your only choices. Using tobacco cessation medicines with behavioral counseling may be a better option to help you succeed. Talk with your provider about your options for support while you quit smoking. Get support Support programs can be a big help, especially for heavy smokers. These groups offer information, ways to change behavior, and peer support. Ask your provider for some resources. Here are some other ways to find support: ?? Smokefree.gov at www.smokefree.gov 661-JHBX-QXP (811-169-0929) ?? [place] [employer] at www.lung.org/quit-smoking 055-624-4612 ?? [place] [employer] at www.cancer.org/quitsmoking 955-941-2734 Support at home is important too. Family [...] to themselves and people they love. Try [id number] nicotine replacements Nicotine replacement therapy may make [...] not to give up. Last Reviewed Date: 2019 ?? [id number] [employer]. All rights reserved. This information is not intended as a substitute for professional medical care. Always follow your healthcare professional's instructions. * Clinical References AVS - Naima Doyle RN - 12/12/2021 1:38 PM CDT [id number] High Cholesterol (Hypercholesterolemia) Cholesterol is a waxy substance. Your body needs it to stay healthy. But too much can cause problems. It travels in your blood through the blood vessels. If you have a lot of cholesterol in your blood, it can build up along the newton of the blood vessels. This makes the vessels narrower. It decreases blood flow. You are then at greater risk of a heart attack or a stroke. Your body needs cholesterol to build new cells and make certain hormones. There are 2 main kinds ofcholesterol in your body: ?? HDL (high-density lipoprotein). This is known as good cholesterol. It stops fatty deposits (plaque) from building up in your arteries. In this way it protects you against heart disease and stroke. ?? LDL (low-density lipoprotein). This is known as bad cholesterol. It stays in your body and sticks to artery newton. It may later block blood flow to your heart and brain. This can cause a heart attack (acute myocardial infarction) or stroke. Your body makes all the cholesterol it needs. But you also get cholesterol from many of the foods you eat. You need to limit how much cholesterol you get in your diet. But you also need to limit how much fat you eat. Cholesterol and dietary fat are not the same thing. But the fat in your diet affects your cholesterol levels. Your body makes cholesterol from the fat you eat. The type of fat you eat has the most impact on how much cholesterol your body makes. This cholesterol creates the most risk for disease. Fats come in 2 kinds: ?? Good fats. These are the unsaturated fats. There are monounsaturated and polyunsaturated fats. They raise the level of good cholesterol. They lower the level of bad cholesterol. Good fats are found in vegetable oils. This includes olive, sunflower, corn, and soybean oils. Good fats are also found in nuts and seeds. ?? Bad fats. These are saturated fats and trans fats. These raise the risk for disease. They lower the good cholesterol. They raise the level of bad cholesterol. Bad fats are found in all red meat and whole-milk dairy foods. Some plants also have a lot of saturated fats. This includes coconut and palm plants. Trans fat raises bad cholesterol and lowers good cholesterol. Trans fats are found in stick margarines. They are found in many fast foods and baked goods. Soft margarine sold in tubs has less trans fat. You may have high blood cholesterol if you eat a diet high in saturated fat and don?t get much exercise. In many cases, your family history plays a role. Your healthcare provider can diagnose high cholesterol with blood tests. Treatment consists of a diet low in saturated fat, weight loss, and exercise. If these efforts don?t lower your cholesterol, your provider may prescribe medicines. They must be taken daily to keep your cholesterol levels low. Being overweight also raises the risk for high cholesterol and heart disease. Losing even a small amount of weight can help lower your risk. Who may need statin medicine If you are at higher risk of heart attack or stroke, you may need statin medicine to lower your cholesterol. This is in addition to having a healthy diet and lifestyle. Statins may help prevent heartattack or stroke. Talk to your healthcare provider if any of these apply to you: ?? You have had a heart attack ?? You have had stroke or a transient ischemic attack (TIA) ?? You have stable or unstable angina ?? You have atherosclerosis, when plaque builds up in arteries ?? You have peripheral vascular disease (PVD) ?? You had a procedure to restore blood flow through a blocked artery ?? You have diabetes and LDL cholesterol level of 70 to 189 mg/dL ?? You have a higher risk of a heart attack or stroke and LDL cholesterol level of 70 to 189 mg/dL ?? You are age 21 or older and have LDL cholesterol level of 190 mg/dL or higher Home care Follow these guidelines when caring for yourself at home: ?? Talk with your healthcare provider about starting a low-cholesterol diet or weight-loss program. ?? Eat less saturated fat and less cholesterol each day. This means eating less red meat and full-fat dairy foods. ?? Eat foods with unsaturated fats. This includes vegetable oils, nuts, and seeds. Eat more fruits,vegetables, and fish. Eat whole grains and other high- fiber foods. ?? Learn to read food labels so you know what you are eating. ?? Talk with a registered dietitian. They can teach you how to plan meals and change your diet. Youcan ask your provider for a referral. ?? Aim for 40 minutes of physical activity 3 to 4 times a week. It should be moderate to vigorous. Pick activities you enjoy. Walking is a good choice if you want to lose weight. If you have diabetes, high blood pressure, or heart disease, ask your provider what activities they advise. ?? If your provider has prescribed medicines, take them as directed. ?? If you smoke, make a plan to quit. Talk with your provider. They can help you. Smoking lowers good cholesterol levels. It can increase the damage done by bad cholesterol. Smoking is a major risk factor for heart attack, stroke, and atherosclerosis disease. ?? Limit how much alcohol you drink. ?? If you have diabetes, talk with your provider and a dietitian about other food and lifestyle changes you can make. You will need to control your blood sugar to lower your risk for heart disease and stroke. Follow-up care Follow up with your healthcare provider as advised. It takes at least 3 months for food and lifestyle changes to show up in a blood test result for cholesterol. Have blood tests as often as advised by your provider. Ask how to prepare for the blood tests. You may need to not eat before the test. If you had an X-ray, ECG (electrocardiogram), or other test, a specialist will look at it. You willbe told if any results change your care. Talk with your healthcare provider about your health history and family history of heart disease orhigh cholesterol. Talk with them about your treatment goals. Plan to have regular tests and follow-up visits. You may need more than 1 medicine to reach your cholesterol goals. Tell your provider if you have side effects from the statin medicines. Call 911 Call 911 if you have any of these: ?? Chest, arm, shoulder, neck, or upper back pain ?? Shortness of breath ?? Weakness or numbness of an arm, leg, or 1 side of the face ?? Trouble with speech or vision ?? Weakness, dizziness, or fainting Last Reviewed Date: 2021 ?? [id number] [employer]. All rights reserved. This information is not intended as a substitute for professional medical care. Always follow your healthcare professional's instructions. * Clinical References JORDON - Naima Doyle RN - 12/12/2021 1:38 PM CDT High Cholesterol: Understanding Statins - Video Learn how statin medications work to lower the amount of cholesterol in your blood; lowering your risk of heart attack, stroke and other blood vessel diseases. To view the video go to this web address: [email or web address] Or, scan this QR code with your smart phone ?? [facility] * Clinical References JORDON - Naima Doyle RN - 12/12/2021 1:38 PM CDT [id number] Discharge Instructions for Stroke You have a high risk for a stroke, or a TIA (transient ischemic attack). During a stroke, blood stops flowing to part of your brain. This can damage areas in the brain that control other parts of thebody. Symptoms from a stroke depend on which part of the brain has been affected. Stroke risk factors Once you???ve had a stroke, you???re at greater risk for another one. Listed below are some other factors that can raise your risk for a stroke. Your personal risk factors are in BOLD. ?? High blood pressure ?? High cholesterol - Your LDL: 112 mg/dL Goal: <70 mg/dL ?? Cigarette or cigar smoking ?? Diabetes - Your A1c: 7.1% ?? Carotid or other artery disease ?? [...] some everyday tasks may be hard after you???ve had a stroke. But you can learn [...] ?? Take your medicines exactly as directed. Don???t skip doses. ?? Begin an exercise program. Ask your provider how to get started. Ask how much activity you should try to get every day or week. You can benefit from simple activities such as walking or gardening. ?? Limit how much alcohol you drink. ?? Control your cholesterol level. Follow your provider???s advice about how to do this. ?? [...] sense of falling ?? Blackouts or seizures Last Reviewed Date: 2021 ?? [id number] [employer]. All rights reserved. This information is not intended as a substitute for professional medical care. Always follow your healthcare professional's instructions.This information has been modified by your health care provider with permission from the publisher. * Clinical References AVS - Naima Doyle RN - 12/12/2021 1:32 PM CDT [id number] Diet: Diabetes Food is an important tool that you can use to control diabetes and stay healthy. Eating well-balanced meals in the correct amounts will help you control your blood glucose levels and prevent low blood sugar reactions. It will also help you reduce the health risks of diabetes. There is no one specific diet that is right for everyone with diabetes and you can eat a variety of foods. But there are general guidelines to follow. A registered dietitian (MIKE) will create a tailored diet approach that?sjust right for you. They will also help you plan healthy meals and snacks. If you have any questions, call your dietitian for advice. Guidelines for success Talk with your healthcare provider before starting a diabetes diet or weight loss program. If you haven't talked with a dietitian yet, ask your provider for a referral. The following guidelines can help you succeed: ?? Select foods from the 6 food groups below. Your dietitian will help you find food choices withineach group. He or she will also show you serving sizes and how many servings you can have at each meal. o Grains, beans, and starchy vegetables o Vegetables o Fruit o Milk or yogurt o Meat, poultry, fish, or tofu o Healthy fats ?? Check your blood sugar levels as directed by your provider. Take any medicine as prescribed by your provider. ?? Learn to read food labels and pick the right portion sizes. ?? Limit carbohydrates at each meal to help manage your diabetes. The carbohydrates you eat become glucose in the blood. This does not mean you can't eat carbohydrates. Talk with your healthcare provider about how many grams of carbohydrates are recommended for you at each meal. Eat 3 meals a day, at consistent times. Don't skip meals. If you are hungry between meals, eat a small, low-carbohydrate snack. ?? Talk with your healthcare provider if you drink alcohol. Alcohol can have unpredictable effects on blood glucose. It's also high in empty calories and can raise a type of blood fat called triglycerides. Drink water or calorie-free diet drinks instead. ?? Eat less fat to help lower your risk of heart disease. Use nonfat or low-fat dairy products and lean meats. Avoid fried foods. Use cooking oils that are unsaturated, such as olive, canola, or peanut oil. ?? Don't eat foods with added salt. Salt can contribute to high blood pressure, which can cause heart disease. People with diabetes already have a risk for high blood pressure and heart disease. ?? Stay at a healthy weight. If you need to lose weight, cut down on your portion sizes. But never skip meals. Exercise is an important part of any weight management program. Talk with your provider about an exercise program that?s right for you. ?? For more information about the best diet plan for you, talk with an RD. To find an RD in your area, contact: o Academy of Nutrition and Dietetics at www.eatright.org o [place] [employer] at www.diabetes.org or 625-541-5512 o Association of Diabetes Care and Education Specialists at www.diabeteseducator.org/ Last Reviewed Date: 2021 ?? [id number] [employer]. All rights reserved. This information is not intended as a substitute for professional medical care. Always follow your healthcare professional's instructions. * Code/Rapid Response Event - Bravo Woodson APRN-CNP - 12/12/2021 1:30 PM CDT New code stroke activated for worsening of left sided weakness. NIHSS went from 0 to 7. Patients left arm and leg went flaccid while working with therapy. Also stated he had dizziness when looking up. Pt's BP prior to symptoms was 142/73 and just after symptoms started it was 157/86. Will repeat CT- head. In route to CT, patient able to move left arm better. Still no movement in left leg. Post CT, patient able to move leg a little better. Dr. Hall made aware. Carotid US and TCD ordered as well. HENRY StephensC documented in this encounter Plan of Treatment Scheduled Orders Name Type Priority Associated Diagnoses Order Schedule CREATININE BLOOD - POCT (IP) [facility] Point of Care Testing STAT ONCE for 1 Occurrences starting 12/11/2021 until 12/11/2021 documented as of this encounter Procedures Procedure Name Priority Date/Time Associated Diagnosis Comments GLUCOSE - POINT OF CARE Routine 12/14/2021 12:04 PM CDT GLUCOSE - POINT OF CARE Routine 12/14/2021 8:27 AM CDT GLUCOSE - POINT OF CARE Routine 12/14/2021 6:05 AM CDT CBC W/O DIFFERENTIAL Routine 12/14/2021 2:55 AM CDT BASIC METABOLIC PANEL (CALCIUM TOTAL) Routine 12/14/2021 2:55 AM CDT PHOSPHORUS BLOOD Routine 12/14/2021 2:55 AM CDT MAGNESIUM BLOOD Routine 12/14/2021 2:55 AM CDT GLUCOSE - POINT OF CARE Routine 12/13/2021 11:43 PM CDT GLUCOSE - POINT OF CARE Routine 12/13/2021 5:02 PM CDT GLUCOSE - POINT OF CARE Routine 12/13/2021 12:27 PM CDT GLUCOSE - POINT OF CARE Routine 12/13/2021 8:11 AM CDT TROPONIN I Routine 12/13/2021 3:01 AM CDT CBC W/O DIFFERENTIAL Routine 12/13/2021 1:49 AM CDT BASIC METABOLIC PANEL (CALCIUM TOTAL) Routine 12/13/2021 1:49 AM CDT PHOSPHORUS BLOOD Routine 12/13/2021 1:49 AM CDT MAGNESIUM BLOOD Routine 12/13/2021 1:49 AM CDT GLUCOSE - POINT OF CARE Routine 12/12/2021 7:59 PM CDT VAS TRANSCRANIAL DOPPLER COMP Routine 12/12/2021 5:24 PM CDT Left leg weakness VAS CAROTID DUPLEX BILATERAL Routine 12/12/2021 4:18 PM CDT Left leg weakness CT BRAIN STROKE STAT 12/12/2021 1:47 PM CDT Left leg weakness GLUCOSE - POINT OF CARE Routine 12/12/2021 1:25 PM CDT TROPONIN I Routine 12/12/2021 12:29 PM CDT GLUCOSE - POINT OF CARE Routine 12/12/2021 11:53 AM CDT CARDIAC EKG ORDER 12/12/2021 10: 27 AM CDT GLUCOSE - POINT OF CARE Routine 12/12/2021 9:38 AM CDT TROPONIN I Timed 12/12/2021 2:05 AM CDT CBC W/O DIFFERENTIAL Routine 12/12/2021 2:05 AM CDT BASIC METABOLIC PANEL (CALCIUM TOTAL) Routine 12/12/2021 2:05 AM CDT PHOSPHORUS BLOOD Routine 12/12/2021 2:05 AM CDT MAGNESIUM BLOOD Routine 12/12/2021 2:05 AM CDT LIPID PROFILE Routine 12/12/2021 2:05 AM CDT GLUCOSE - POINT OF CARE Routine 12/11/2021 11:27 PM CDT GLUCOSE - POINT OF CARE Routine 12/11/2021 10:03 PM CDT TROPONIN I Timed 12/11/2021 8:49 PM CDT MRI ANGIO BRAIN ARTERIAL WO CONT STAT 12/11/2021 8:31 PM CDT Left leg weakness MRI BRAIN WO CONTRAST STAT 12/11/2021 8:31 PM CDT Left leg weakness MRI ANGIO NECK W CONTRAST STAT 12/11/2021 8:30 PM CDT Left leg weakness TROPONIN I Timed 12/11/2021 7:32 PM CDT XR CHEST 1VW PORTABLE STAT 12/11/2021 5:46 PM CDT Left leg weakness BLOOD TYPE VERIFICATION STAT 12/11/2021 3:21 PM CDT TROPONIN I Timed 12/11/2021 3:21 PM CDT ECHO COMPLETE W BUBBLE STUDY Routine 12/11/2021 2:36 PM CDT Left leg weakness EKG 12-LEAD STAT 12/11/2021 12:43 PM CDT Left leg weakness GLUCOSE - POINT OF CARE Routine 12/11/2021 12:34 PM CDT PTT SLH STAT 12/11/2021 12:27 PM CDT PT-INR SLH STAT 12/11/2021 12:27 PM CDT TROPONIN I STAT 12/11/2021 12:27 PM CDT HEMOGLOBIN A1C Add on 12/11/2021 12:27 PM CDT TYPE + SCREEN PANEL STAT 12/11/2021 1 2:27 PM CDT CBC W AUTO DIFFERENTIAL STAT 12/11/2021 12:27 PM CDT COMPREHENSIVE METABOLIC PANEL STAT 12/11/2021 12:27 PM CDT INR WHOLE BLOOD - POINT OF CARE (IP) STROKE Routine 12/11/2021 12:14 PM CDT CREATININE - POCT INTERFACED Routine 12/11/2021 12:[address] BRAIN STROKE STAT 12/11/2021 12:10 PM CDT Left leg weakness documented in this encounter Results * (ABNORMAL) GLUCOSE - POINT OF CARE (12/14/2021 12:04 PM CDT) Glucose WB/POC 204(H) 70 - 115 mg/dL 12/14/2021 12:09 PM CDT [facility] Specimen Type Venous 12/14/2021 12:09 PM CDT [facility] Blood BLOOD SPECIMEN / Unknown 12/14/2021 12:04 PM CDT 12/14/2021 12:09 PM CDT Ru Gaines MD LAB - POINT OF CARE ORDERABLES [facility] [address] [place] [address], [place] [phone] * (ABNORMAL) GLUCOSE - POINT OF CARE (12/14/2021 8:27 AM CDT) Glucose WB/POC 178(H) 70 - 115 mg/dL 12/14/2021 8:32 AM CDT [facility] Specimen Type Venous 12/14/2021 8:32 AM CDT [facility] Blood BLOOD SPECIMEN / Unknown 12/14/2021 8:27 AM CDT 12/14/2021 8:32 AM CDT Ru Gaines MD LAB - POINT OF CARE ORDERABLES Performing Organization Address City/[facility]/ZIP Co de Phone Number [facility] [address] [place] [address], [place] [phone] * (ABNORMAL) GLUCOSE - POINT OF CARE (12/14/2021 6:05 AM CDT) Glucose WB/POC 226(H) 70 - 115 mg/dL 12/14/2021 6:10 AM CDT [facility] Specimen Type Cap Fingerstick 2021 6:10 AM CDT [facility] Blood BLOOD SPECIMEN / Unknown 12/14/2021 6:05 AM CDT 12/14/2021 6:10 AM CDT Ru Gaines MD LAB - POINT OF CARE ORDERABLES [facility] [address] [place] [phone], [facility] [phone] * PHOSPHORUS BLOOD (12/14/2021 2:55 AM CDT) Pathologist [facility] Phosphorus 3.7 2.8 - 5.1 mg/dL 12/14/2021 4:37 AM CDT [facility] Blood BLOOD SPECIMEN / Unknown Lab Venipuncture / Unknown 12/14/2021 2:55 AM CDT 12/14/2021 3:25 AM CDT Jorge Hall MD LAB - CHEMISTRY [place] Performing Organization Address City/[facility]/ZIP Co de Phone Number [address] [address], [facility] [phone] * MAGNESIUM BLOOD (12/14/2021 2:55 AM CDT) Pathologist [facility] Magnesium 1.6 1.6 - 2.6 mg/dL 12/14/2021 4:37 AM CDT [facility] Blood BLOOD SPECIMEN / Unknown Lab Venipuncture / Unknown 12/14/2021 2:55 AM CDT 12/14/2021 3:25 AM CDT Jorge Hall MD LAB - CHEMISTRY [place]ICE [place]ES Performing Organization Address City/[facility]/ZIP Co de Phone Number [address] [address], [facility] [phone] * (ABNORMAL) CBC W/O DIFFERENTIAL (12/14/2021 2:55 AM CDT) WBC 7.8 3.5 - 10.5 10? 3 /uL 12/14/2021 3:33 AM CDT [facility] RBC 4.18(L) 4.30 - 5.70 10? 6 /uL 12/14/2021 3:33 AM CDT [facility] Hemoglobin 12.0 12.0 - 17.6 g/dL 12/14/2021 3:33 AM CDT [facility] Hematocrit 36.2 35.2 - 51.7 % 12/14/2021 3:33 AM [facility] MCV 86.6 80.7 - 98.3 fL 12/14/2021 3:33 AM [facility] MCH 28.7 26.7 - 34.0 pg 12/14/2021 3:33 AM [facility] MCHC 33.1 30.8 - 35.9 g/dL 12/14/2021 3:33 AM [facility] Platelet Count 260 150 - 400 10? 3 /uL 12/14/2021 3:33 AM [facility] RDW-SD 44.9 36.0 - 50.0 fL 12/14/2021 3:33 AM [facility] RDW-CV 14.2 11.2 - 14.8 % 12/14/2021 3:33 AM [facility] MPV 8.8(L) 9.4 - 12.9 fL 12/14/2021 3:33 AM [facility] nRBC Absolute 0.00 0 10? 3 /uL 12/14/2021 3:33 AM [facility] nRBC Auto 0.0 0 /100 WBC 12/14/2021 3:33 AM [facility] Blood BLOOD SPECIMEN / Unknown Lab Venipuncture / Unknown 12/14/2021 2:55 AM CDT 12/14/2021 3:28 AM CDT Bravo Woodson CROSS [employer]IE CUTTER-POLITICAL DIRECTOR LAB - HEMATOLOGY O RDERABLES Performing Organization Address [facility]/State/[facility] Co de Phone Number [address] [address], [facility] [phone] * (ABNORMAL) BASIC METABOLIC PANEL (CALCIUM TOTAL) (12/14/2021 2:55 AM CDT) BUN 22 7 - 26 mg/dL 12/14/2021 4:37 AM [facility] Creatinine 1.40(H) 0.71 - 1.16 mg/dL 12/14/2021 4:37 AM [facility] Sodium 136 136 - 145 mmol/L 12/14/2021 4:37 AM [facility] Potassium 5.5(H) 3.5 - 4.5 mmol/L 12/14/2021 4:37 AM [facility] Comment:Hemolysis detected i n this specimen. Hemolysis may cause false elevations in potassium leading to pseudohyperkalemia or masked hypokalemia. Recommend repeat testing if clinically indicated. Chloride 100 98 - 107 mmol/L 12/14/2021 4:37 AM [facility] CO2 22 22 - 29 mmol/L 12/14/2021 4:37 AM [facility] Glucose 138(H) 70 - 115 mg/dL 12/14/2021 4:37 AM [facility] Calcium 9.6 8.4 - 10.2 mg/dL 12/14/2021 4:37 AM [facility] Anion Gap 20(H) 8 - 18 12/14/2021 4:37 AM [facility] BUN/Creatinine Ratio 16 7 - 23 11/2021 4:37 AM [facility] Osmolality Calculated 288 270 - 300 mOsm/kg 12/14/2021 4:37 AM [facility] eGFR by CKD-EPI 56(L) >=90 mL/min/1 .73 m2 12/14/2021 4:37 AM [facility] Blood BLOOD SPECIMEN / Unknown Lab Venipuncture / Unknown 12/14/2021 2:55 AM CDT 12/14/2021 3:25 AM CDT Bravo Woodson [employer]UTTER-POLITICAL DIRECTOR LAB - CHEMISTRY OR DERABLES [facility] [address] [place] [phone], [facility] [phone] * (ABNORMAL) GLUCOSE - POINT OF CARE (12/13/2021 11:43 PM CDT) Glucose WB/POC 137(H) 70 - 115 mg/dL 12/13/2021 11:47 PM [facility] Specimen Type Cap Fingerstick 2021 11:47 PM [facility] Blood BLOOD SPECIMEN / Unknown 12/13/2021 11:43 PM CDT 12/13/2021 11:47 PM CDT Ru Gaines MD LAB - POINT OF CARE ORDERABLES [address] [address], [place] [phone] * (ABNORMAL) GLUCOSE - POINT OF CARE (12/13/2021 5:02 PM CDT) Glucose WB/POC 158(H) 70 - 115 mg/dL 12/13/2021 5:13 PM CDT [facility] Specimen Type Venous 12/13/2021 5:13 PM CDT [facility] Blood BLOOD SPECIMEN / Unknown 12/13/2021 5:02 PM CDT 12/13/2021 5:13 PM CDT Ru Gaines MD LAB - POINT OF CARE ORDERABLES [address] [address], [place] [phone] * (ABNORMAL) GLUCOSE - POINT OF CARE (12/13/2021 12:27 PM CDT) Glucose WB/POC 161(H) 70 - 115 mg/dL 12/13/2021 12:32 PM CDT [facility] Specimen Type Venous 12/13/2021 12:32 PM CDT [facility] Blood BLOOD SPECIMEN / Unknown 12/13/2021 12:27 PM CDT 12/13/2021 12:32 PM CDT Ru Gaines MD LAB - POINT OF CARE ORDERABLES [address] [address], [place] [phone] * (ABNORMAL) GLUCOSE - POINT OF CARE (12/13/2021 8:11 AM CDT) Glucose WB/POC 142(H) 70 - 115 mg/dL 12/13/2021 8:16 AM CDT [facility] Specimen Type Venous 12/13/2021 8:16 AM CDT [facility] Blood BLOOD SPECIMEN / Unknown 12/13/2021 8:11 AM CDT 12/13/2021 8:16 AM CDT Ru Gaines MD LAB - POINT OF CARE ORDERABLES Performing Organization Address City/[facility]/ZIP Co de Phone Number [address] [address], [place] [phone] * (ABNORMAL) TROPONIN I (12/13/2021 3:01 AM CDT) Troponin I 0.046(H) <0.032 ng/mL 12/13/2021 3:48 AM CDT [facility] Blood BLOOD SPECIMEN / Unknown Lab Venipuncture / Unknown 12/13/2021 3:01 AM CDT 12/13/2021 3:11 AM CDT Jorge Hall MD LAB - CHEMISTRY [place]ES Performing Organization Address [facility]/ZIP Co de Phone Number [address] [address], [place] [phone] * PHOSPHORUS BLOOD (12/13/2021 1:49 AM CDT) Phosphorus 3.5 2.8 - 5.1 mg/dL 12/13/2021 3:40 AM CDT [facility] Blood BLOOD SPECIMEN / Unknown Lab Venipuncture / Unknown 12/13/2021 1:49 AM CDT 12/13/2021 3:07 AM CDT Jorge Hall MD LAB - CHEMISTRY [place]ICE [place]ES Performing Organization Address City/[facility]/ZIP Co de Phone Number [address] [address], [place] [phone] * MAGNESIUM BLOOD (12/13/2021 1:49 AM CDT) Pathologist [facility] Magnesium 1.6 1.6 - 2.6 mg/dL 12/13/2021 3:40 AM [facility] Blood BLOOD SPECIMEN / Unknown Lab Venipuncture / Unknown 12/13/2021 1:49 AM CDT 12/13/2021 3:07 AM CDT Jorge Hall MD LAB - CHEMISTRY [place]ELICE MILES [facility] Organization Address City/State/ZIP Co de Phone Number [facility] [address] [place] [address], [facility] [phone] * (ABNORMAL) CBC W/O DIFFERENTIAL (12/13/2021 1:49 AM CDT) [facility] WBC 6.2 3.5 - 10.5 10? 3 /uL 12/13/2021 3:18 AM [facility] RBC 4.06(L) 4.30 - 5.70 10? 6 /uL 12/13/2021 3:18 AM [facility] Hemoglobin 11.6(L) 12.0 - 17.6 g/dL 12/13/2021 3:18 AM [facility] Hematocrit 34.9(L) 35.2 - 51.7 % 12/13/2021 3:18 AM [facility] MCV 86.0 80.7 - 98.3 fL 12/13/2021 3:18 AM [facility] MCH 28.6 26.7 - 34.0 pg 12/13/2021 3:18 AM [facility] MCHC 33.2 30.8 - 35.9 g/dL 12/13/2021 3:18 AM [facility] Platelet Count 246 150 - 400 10? 3 /uL 12/13/2021 3:18 AM [facility] RDW-SD 45.1 36.0 - 50.0 fL 12/13/2021 3:18 AM [facility] RDW-CV 14.3 11.2 - 14.8 % 12/13/2021 3:18 AM [facility] MPV 9.3(L) 9.4 - 12.9 fL 12/13/2021 3:18 AM [facility] nRBC Absolute 0.00 0 10? 3 /uL 12/13/2021 3:18 AM [facility] nRBC Auto 0.0 0 /100 WBC 12/13/2021 3:18 AM [facility] Blood BLOOD SPECIMEN / Unknown Lab Venipuncture / Unknown 12/13/2021 1:49 AM CDT 12/13/2021 3:07 AM CDT Bravo Woodson CR[employer]IE [employer]TER-POLITICAL DIRECTOR LAB - HEMATOLOGY O RDERABLES [facility] [address] [place] [address], [facility] [phone] * (ABNORMAL) BASIC METABOLIC PANEL (CALCIUM TOTAL) (12/13/2021 1:49 AM CDT) BUN 21 7 - 26 mg/dL 12/13/2021 3:40 AM [facility] Creatinine 1.32(H) 0.71 - 1.16 mg/dL 12/13/2021 3:40 AM [facility] Sodium 137 136 - 145 mmol/L 12/13/2021 3:40 AM [facility] Potassium 4.1 3.5 - 4.5 mmol/L 12/13/2021 3:40 AM [facility] Chloride 98 98 - 107 mmol/L 12/13/2021 3:40 AM [facility] CO2 24 22 - 29 mmol/L 12/13/2021 3:40 AM [facility] Glucose 222(H) 70 - 115 mg/dL 12/13/2021 3:40 AM [facility] Calcium 9.4 8.4 - 10.2 mg/dL 12/13/2021 3:40 AM [facility] Anion Gap 19(H) 8 - 18 12/13/2021 3:40 AM [facility] BUN/Creatinine Ratio 16 7 - 23 12/13/2021 3:40 AM [facility] Osmolality Calculated 294 270 - 300 mOsm/kg 12/13/2021 3:40 AM CDT [facility] eGFR by CKD-EPI 60(L) >=90 mL/min/1.7 3 m2 12/13/2021 3:40 AM CDT [facility] Blood BLOOD SPECIMEN / Unknown Lab Venipuncture / Unknown 12/13/2021 1:49 AM CDT 12/13/2021 3:07 AM CDT Bravo Woodson CR[employer]IE CUTTER-POLITICAL DIRECTOR LAB - CHEMISTRY OR DERABLES Performing Organization Address City/[facility]/ZIP Co de Phone Number [address] [address], [place] [phone] * (ABNORMAL) GLUCOSE - POINT OF CARE (12/12/2021 7:59 PM CDT) [facility] Glucose WB/POC 198(H) 70 - 115 mg/dL 12/13/2021 7:28 AM CDT [facility] Specimen Type Cap Fingerstick 2021 7:28 AM CDT [facility] Blood BLOOD SPECIMEN / Unknown 12/12/2021 7:59 PM CDT 12/13/2021 7:28 AM CDT Jorge Hall MD LAB - POINT OF CARE ORDERABLES Performing Organization Address [facility]/ZIP Co de Phone Number [address] [address], [place] [phone] * VAS TRANSCRANIAL DOPPLER COMP (12/12/2021 5:24 PM CDT) Anatomical Region Laterality Modality Head Intravascular Ul trasound 12/12/2021 4:20 PM CDT Narrative Procedure Note Ru Gaines MD - 12/25/2021 Jorge Hall MD VASCULAR LAB ORDERAB LES * VAS CAROTID DUPLEX BILATERAL (12/12/2021 4:18 PM CDT) Anatomical Region Laterality Modality Neck Intravascular Ul trasound 12/12/2021 3:10 PM CDT Narrative Procedure Note Alan Powell MD - 12/13/2021 Jorge Hall MD VASCULAR LAB ORDERAB LES * CT BRAIN STROKE (12/12/2021 1:47 PM CDT) Anatomical Region Laterality Modality Head Computed Tomogra phy 12/12/2021 1:49 PM CDT Impressions 12/12/2021 2:00 PM CDT IMPRESSION: 1. No acute interval change compared to the brain CT from yesterday. 2. No acute intracranial hemorrhage or mass effect. The findings were discussed by Dr. Segal with Dr. Woodson at 1350 hours on 12/12/2021. > Interpreting Provider: Lauren Segal MD on 12/12/2021 2:00 PM Narrative 12/12/2021 2:00 PM CDT PROCEDURE: ??CT BRAIN STROKE, DATE/TIME OF EXAM: ??12/12/2021 1:53 PM, LOCATION [facility] INDICATION: R29.898: Left leg weakness ADDITIONAL CLINICAL INFORMATION: Ordering Provider Reason For Exam: ??worsening left leg weakness Technologist Note: Additional: COMPARISON: Brain CT and MRI from 12/11/2021. TECHNIQUE: Noncontrast CT brain was performed utilizing standard protocol. CT dose reduction technique was used, including Automated Exposure Control. FINDINGS: Parenchyma: No parenchymal hemorrhage. 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 Multiple acute infarcts seen on the brain MRI from yesterday are not evident by CT. There is no mass lesion or mass effect. Extraaxial Spaces: Normal for age. No subdural or epidural collections identified. Ventricles: The ventricles are midline. Mild generalized cerebral volume loss is again demonstrated. Orbits: Postsurgical changes from cataract extractions are seen in the globes. Sinuses: The imaged paranasal sinuses and mastoids are clear. Bones: No evidence of fracture or calvarial defect. The temporomandibular joints are well aligned. Other: Mild intracranial atherosclerosis is seen. Dehiscence of the left side of the sella is again demonstrated. Procedure Note Lauren Segal MD - 12/12/2021 PROCEDURE: CT BRAIN STROKE, DATE/TIME OF EXAM: 12/12/2021 1:53 PM,LOCATION [facility] INDICATION: R29.898: Left leg weakness ADDITIONAL CLINICAL INFORMATION: Ordering Provider Reason For Exam: worsening left leg weakness Technologist Note: Additional: COMPARISON: Brain CT and MRI from 12/11/2021. TECHNIQUE: Noncontrast CT brain was performed utilizing standard protocol. CT dose reduction technique was used, including Automated ExposureControl. FINDINGS: Parenchyma: No parenchymal hemorrhage. Multiple areas of old infarctare again demonstrated in the right frontal and parietal lobes, posteriorright temporal lobe, and left cerebellum. Multiple acute infarcts seen on the brain MRI from yesterday are not evident by CT. There is no mass lesionor mass effect. Extraaxial Spaces: Normal for age. No subdural or epidural collections identified. Ventricles: The ventricles are midline. Mild generalized cerebral volume loss is again demonstrated. Orbits: Postsurgical changes from cataract extractions are seen in the globes. Sinuses: The imaged paranasal sinuses and mastoids are clear. Bones: No evidence of fracture or calvarial defect. Thetemporomandibular joints are well aligned. Other: Mild intracranial atherosclerosis is seen. Dehiscence of the left side of the sella is again demonstrated. IMPRESSION: 1. No acute interval change compared to the brain CT from yesterday. 2. No acute intracranial hemorrhage or mass effect. The findings were discussed by Dr. Segal with Dr. Woodson at 1350hours on 12/12/2021. > Interpreting Provider: Lauren Segal MD on 12/12/2021 2:00 PM Bravo Woodson CROSS TIE CUTTER-POLITICAL DIRECTOR CT ORDERABLES * (ABNORMAL) GLUCOSE - POINT OF CARE (12/12/2021 1:25 PM CDT) Glucose WB/POC 180(H) 70 - 115 mg/dL 12/12/2021 1:26 PM CDT [facility] Specimen Type Cap Fingerstick 2021 1:26 PM CDT [facility] Blood BLOOD SPECIMEN / Unknown 12/12/2021 1:25 PM CDT 12/12/2021 1:26 PM CDT Jorge Hall MD LAB - POINT OF CARE ORDERABLES Performing Organization Address City/[facility]/ZIP Co de Phone Number [address] [address], [place] [phone] * (ABNORMAL) TROPONIN I (12/12/2021 12:29 PM CDT) Troponin I 0.039(H) <0.032 ng/mL 12/12/2021 1:22 PM CDT [facility] Blood BLOOD SPECIMEN / Unknown Lab Venipuncture / Unknown 12/12/2021 12:29 PM CDT 12/12/2021 12:50 PM CDT Jorge Hall MD LAB - CHEMISTRY ORDE RABLES Performing Organization Address [facility]/ZIP Co de Phone Number [address] [address], [place] [phone] * (ABNORMAL) GLUCOSE - POINT OF CARE (12/12/2021 11:53 AM CDT) Pathologist [facility] Glucose WB/POC 155(H) 70 - 115 mg/dL 12/12/2021 12:00 PM CDT [facility] Specimen Type Cap Fingerstick 2021 12:00 PM CDT [facility] Blood BLOOD SPECIMEN / Unknown 12/12/2021 11:53 AM CDT 12/12/2021 12:00 PM CDT Jorge Hall MD LAB - POINT OF CARE ORDERABLES Performing Organization Address City/[facility]/ZIP Co de Phone Number [address] [address], [place] [phone] * CARDIAC EKG ORDER (12/12/2021 10:27 AM CDT) Narrative 12/12/2021 10:27 AM CDT Ordered by an unspecified provider. Scanned Document CARDIAC SERVICES ORD ERABLES * (ABNORMAL) GLUCOSE - POINT OF CARE (12/12/2021 9:38 AM CDT) Glucose WB/POC 210(H) 70 - 115 mg/dL 12/12/2021 9:43 AM CDT [facility] Specimen Type Cap Fingerstick 2021 9:43 AM CDT [facility] Blood BLOOD SPECIMEN / Unknown 12/12/2021 9:38 AM CDT 12/12/2021 9:43 AM CDT Jorge Hall MD LAB - POINT OF CARE ORDERABLES Performing Organization Address [facility]/ZIP Co de Phone Number [address] [address], [place] [phone] * PHOSPHORUS BLOOD (12/12/2021 2:05 AM CDT) Phosphorus 3.3 2.8 - 5.1 mg/dL 12/12/2021 7:59 AM CDT [facility] Blood BLOOD SPECIMEN / Unknown Lab Venipuncture / Unknown 12/12/2021 2:05 AM CDT 12/12/2021 2:54 AM CDT Jorge Hall MD LAB - CHEMISTRY FELICE MILES Performing Organization Address City/[facility]/ZIP Co de Phone Number [address] [address], [place] [phone] * MAGNESIUM BLOOD (12/12/2021 2:05 AM CDT) Magnesium 1.6 1.6 - 2.6 mg/dL 12/12/2021 7:59 AM CDT [facility] Blood BLOOD SPECIMEN / Unknown Lab Venipuncture / Unknown 12/12/2021 2:05 AM CDT 12/12/2021 2:54 AM CDT Jorge Hall MD LAB - CHEMISTRY FELICE MILES [facility] [address] [place] [address], [facility] [phone] * (ABNORMAL) CBC W/O DIFFERENTIAL (12/12/2021 2:05 AM [facility] [place] WBC 7.5 3.5 - 10.5 10? 3 /uL 12/12/2021 3:01 AM [facility] RBC 4.02(L) 4.30 - 5.70 10? 6 /uL 12/12/2021 3:01 AM [facility] Hemoglobin 11.8(L) 12.0 - 17.6 g/dL 12/12/2021 3:01 AM [facility] Hematocrit 34.9(L) 35.2 - 51.7 % 12/12/2021 3:01 AM [facility] MCV 86.8 80.7 - 98.3 fL 12/12/2021 3:01 AM [facility] MCH 29.4 26.7 - 34.0 pg 12/12/2021 3:01 AM [facility] MCHC 33.8 30.8 - 35.9 g/dL 12/12/2021 3:01 AM [facility] Platelet Count 234 150 - 400 10? 3 /uL 12/12/2021 3:01 AM [facility] RDW-SD 46.0 36.0 - 50.0 fL 12/12/2021 3:01 AM [facility] RDW-CV 14.4 11.2 - 14.8 % 12/12/2021 3:01 AM [facility] MPV 8.8(L) 9.4 - 12.9 fL 12/12/2021 3:01 AM [facility] nRBC Absolute 0.00 0 10? 3 /uL 12/12/2021 3:01 AM [facility] nRBC Auto 0.0 0 /100 WBC 12/12/2021 3:01 AM [facility] Blood BLOOD SPECIMEN / Unknown Lab Venipuncture / Unknown 12/12/2021 2:05 AM CDT 12/12/2021 2:55 AM CDT Bravo Woodson APRN-POLITICAL DIRECTOR LAB - HEMATOLOGY O RDERABLES [facility] [address] [place] [address], [facility] [phone] * (ABNORMAL) BASIC METABOLIC PANEL (CALCIUM TOTAL) (12/12/2021 2:05 AM CDT) BUN 19 7 - 26 mg/dL 12/12/2021 3:25 AM [facility] Creatinine 1.23(H) 0.71 - 1.16 mg/dL 12/12/2021 3:25 AM [facility] Sodium 136 136 - 145 mmol/L 12/12/2021 3:25 AM [facility] Potassium 4.0 3.5 - 4.5 mmol/L 12/12/2021 3:25 AM [facility] Chloride 99 98 - 107 mmol/L 12/12/2021 3:25 AM [facility] CO2 24 22 - 29 mmol/L 12/12/2021 3:25 AM [facility] Glucose 183(H) 70 - 115 mg/dL 12/12/2021 3:25 AM [facility] Calcium 9.5 8.4 - 10.2 mg/dL 12/12/2021 3:25 AM [facility] Anion Gap 17 8 - 18 12/12/2021 3:25 AM [facility] BUN/Creatinine Ratio 15 7 - 23 12/12/2021 3:25 AM [facility] Osmolality Calculated 289 270 - 300 mOsm/kg 12/12/2021 3:25 AM [facility] eGFR by CKD-EPI 65(L) >=90 mL/min/1.7 3 m2 12/12/2021 3:25 AM [facility] Blood BLOOD SPECIMEN / Unknown Lab Venipuncture / Unknown 12/12/2021 2:05 AM CDT 12/12/2021 2:54 AM CDT Bravo Woodson APRN-POLITICAL DIRECTOR LAB - CHEMISTRY OR DERABLES Performing Organization Address [facility]/ZIP Co de Phone Number [facility] [address] [place] [address], [facility] [phone] * (ABNORMAL) TROPONIN I (12/12/2021 2:05 AM CDT) Troponin I 0.042(H) <0.032 ng/mL 12/12/2021 3:26 AM CDT [facility] Blood BLOOD SPECIMEN / Unknown Lab Venipuncture / Unknown 12/12/2021 2:05 AM CDT 12/12/2021 2:55 AM CDT Bravo Chantellcuauhtemoc RADHA-POLITICAL DIRECTOR LAB - CHEMISTRY OR DERABLES Performing Organization Address [facility] Co de Phone Number [facility] [address] [place] [address], [facility] [phone] * (ABNORMAL) LIPID PROFILE (12/12/2021 2:05 AM CDT) Cholesterol Total 188 <200 mg/dL 12/12/2021 3:25 AM [facility] HDL 33(L) >40 mg/dL 12/12/2021 3:25 AM [facility] Comment: ATP III Classification of HDL Cholesterol: ? <40 mg/dL: ??Considered a major risk factor. ? >60 mg/dL: ??Considered a negative risk factor. ? LDL Calculated 112(H) <100 mg/dL 12/12/2021 3:25 AM [facility] Comment: ATP III Classification of LDL Cholesterol: ?<100 mg/dL: ??Optimal ? 100 - 129 mg/dL: ??Near Optimal/Above Optimal ? 130 - 159 mg/dL: ??Borderline High ? 160 - 189 mg/dL: ??High ?>190 mg/dL: ??Very High ? Triglycerides 216(H) <150 mg/dL 12/12/2021 3:25 AM CDT [facility] Comment: ATP III Classification of Triglycerides: ?<150 mg/dL: ??Normal ? 150 - 199 mg/dL: ??Borderline High ? 200 - 400 mg/dL: ??High ?>500 mg/dL: ??Very High Blood BLOOD SPECIMEN / Unknown Lab Venipuncture / Unknown 12/12/2021 2:05 AM CDT 12/12/2021 2:54 AM CDT Bravo MCGRAW LAB - CHEMISTRY OR DERABLES Performing Organization Address City/[facility]/ZIP Co de Phone Number [facility] [address] [place] [address], [place] [phone] * (ABNORMAL) GLUCOSE - POINT OF CARE (12/11/2021 11:27 PM CDT) Glucose WB/POC 161(H) 70 - 115 mg/dL 12/11/2021 11:32 PM CDT [facility] Specimen Type Cap Fingerstick 2021 11:32 PM CDT [facility] Blood BLOOD SPECIMEN / Unknown 12/11/2021 11:27 PM CDT 12/11/2021 11:31 PM CDT Jorge Hall MD LAB - POINT OF CARE ORDERABLES [facility] [address] [place] [address], [place] [phone] * (ABNORMAL) GLUCOSE - POINT OF CARE (12/11/2021 10:03 PM CDT) Glucose WB/POC 198(H) 70 - 115 mg/dL 12/11/2021 10:03 PM CDT [facility] Specimen Type Cap Fingerstick 2021 10:03 PM CDT [facility] Blood BLOOD SPECIMEN / Unknown 12/11/2021 10:03 PM CDT 12/11/2021 10:03 PM CDT John Spence MD LAB - POINT OF CARE ORDERABLES Performing Organization Address City/[facility]/ZIP Co de Phone Number [address] [address], [place] [phone] * (ABNORMAL) TROPONIN I (12/11/2021 8:49 PM CDT) Troponin I 0.035(H) <0.032 ng/mL 12/11/2021 9:06 PM CDT [facility] Blood BLOOD SPECIMEN / Unknown Venipuncture / Unknown 12/11/2021 8:49 PM CDT 12/11/2021 8:49 PM CDT Ketan Snowden MD LAB - CHEMISTRY ORDE JD Performing Organization Address [facility]/ZIP Co de Phone Number [address] [address], [place] [phone] * MRI ANGIO BRAIN ARTERIAL WO CONT [...] proximal right MCA upto the bifurcation on kiyb-bw-urjfww imaging with the opacification on postcontrast imaging. The report was drafted by Maryana Sanderson MD (Meat Cooler). Critical results discussed with Dr. Becker by Dr. Sanderson on 12/12/2021 at 8:41 AM. I, Re Sage Dr have personally reviewed and interpreted this examination/study. > Interpreting Provider: Re Sage Dr on 12/12/2021 10:13 AM Narrative 12/12/2021 10:13 AM CDT PROCEDURE: ??MRI ANGIO BRAIN ARTERIAL WO CONT, MRI BRAIN WO CONTRAST, MRI ANGIO NECK W CONTRAST, DATE/TIME OF EXAM: ??12/11/2021 8:31 PM, LOCATION ??[facility] INDICATION: Left leg weakness ADDITIONAL CLINICAL INFORMATION: Ordering Provider Reason For Exam: ??left leg weakness; hx of old strokes (accession [id number]). COMPARISON: CT brain dated 12/11/2021 at 12:10 [...] secondary to slow flow, on the noncontrast ldda-qz-fuljik imaging. However there is opacification of these segments including cavernous ICA terminus and M1 segments on postcontrast imaging. *Left carotid system: Patent ICA. No focal stenosis. Patent SHEA and MCA. Normal anterior communicating artery. Slightly larger caliber left ICA. *Posterior circulation: Patent vertebral arteries and basilar artery without stenosis. Patent adjunct philosophy faculty. There is origin of left BULLET LUBRICANT MIXER. There is no aneurysm. ?? MRA neck: [...] CONTRAST, DATE/TIME OF EXAM: 12/11/2021 8:31 PM, [facility] INDICATION: Left leg weakness ADDITIONAL CLINICAL INFORMATION: Ordering Provider Reason For Exam: left leg weakness; hx of old strokes (accession [id number]). COMPARISON: CT brain dated 12/11/2021 at 12:10 [...] secondary to slow flow, on the noncontrast ymvi-nf-mefxfe imaging. However there is opacification of these segments including cavernous ICA terminus and M1 segments on postcontrastimaging. *Left carotid system: Patent ICA. No focal stenosis. Patent SHEA and MCA. Normal anterior communicating artery. Slightly larger caliber left ICA. *Posterior circulation: Patent vertebral arteries and basilar artery without stenosis. Patent adjunct philosophy faculty. There is origin of left BULLET LUBRICANT MIXER. There is no aneurysm. MRA neck: Artifact [...] terminus, proximal right MCA upto the bifurcationon tqvc-qp-oxevcw imaging with the opacification on postcontrast imaging. The report was drafted by Maryana Sanderson MD (Meat Cooler). Critical results discussed with Dr. Becker by Dr. Sanderson on 12/12/2021 at 8:41 AM. I, Re Sage Dr have personally reviewed and interpreted this examination/study. > Interpreting Provider: Re Sage Dr on 12/12/2021 10:13 AM Bravo Woodson CROSS TIE CUTTER-POLITICAL DIRECTOR MR ORDERABLES * MRI BRAIN NON CONTRAST (12/11/2021 8:31 PM CDT) Anatomical Region Laterality [...] proximal right MCA upto the bifurcation on tkzf-fi-vfnndo imaging with the opacification on postcontrast imaging. The report was drafted by Maryana Sanderson MD (Meat Cooler). Critical results discussed with Dr. Becker by Dr. Sanderson on 12/12/2021 at 8:41 AM. I, Re Sage Dr have personally reviewed and interpreted this examination/study. > Interpreting Provider: Re Sage Dr on 12/12/2021 10:13 AM Narrative 12/12/2021 10:13 AM CDT PROCEDURE: ??MRI ANGIO BRAIN ARTERIAL WO CONT, MRI BRAIN WO CONTRAST, MRI ANGIO NECK W CONTRAST, DATE/TIME OF EXAM: ??12/11/2021 8:31 PM, LOCATION ??[facility] INDICATION: Left leg weakness ADDITIONAL CLINICAL INFORMATION: Ordering Provider Reason For Exam: ??left leg weakness; hx of old strokes (accession [id number]). COMPARISON: CT brain dated 12/11/2021 at 12:10 [...] secondary to slow flow, on the noncontrast bmkf-sj-zmmecm imaging. However there is opacification of these segments including cavernous ICA terminus and M1 segments on postcontrast imaging. *Left carotid system: Patent ICA. No focal stenosis. Patent SHEA and MCA. Normal anterior communicating artery. Slightly larger caliber left ICA. *Posterior circulation: Patent vertebral arteries and basilar artery without stenosis. Patent adjunct philosophy faculty. There is origin of left BULLET LUBRICANT MIXER. There is no aneurysm. ?? MRA neck: [...] CONTRAST, DATE/TIME OF EXAM: 12/11/2021 8:31 PM, [facility] INDICATION: Left leg weakness ADDITIONAL CLINICAL INFORMATION: Ordering Provider Reason For Exam: left leg weakness; hx of old strokes (accession [id number]). COMPARISON: CT brain dated 12/11/2021 at 12:10 [...] secondary to slow flow, on the noncontrast ngjh-xj-brbxje imaging. However there is opacification of these segments including cavernous ICA terminus and M1 segments on postcontrastimaging. *Left carotid system: Patent ICA. No focal stenosis. Patent SHEA and MCA. Normal anterior communicating artery. Slightly larger caliber left ICA. *Posterior circulation: Patent vertebral arteries and basilar artery without stenosis. Patent adjunct philosophy faculty. There is origin of left BULLET LUBRICANT MIXER. There is no aneurysm. MRA neck: Artifact [...] terminus, proximal right MCA upto the bifurcationon tjcy-pt-zxmypl imaging with the opacification on postcontrast imaging. The report was drafted by Maryana Sanderson MD (Meat Cooler). Critical results discussed with Dr. Becker by Dr. Sanderson on 12/12/2021 at 8:[address] have personally reviewed and interpreted this examination/study. > Interpreting Provider: Re Sage Dr on 12/12/2021 10:13 AM Bravo Woodson CROSS TIE CUTTER-POLITICAL DIRECTOR MR ORDERABLES * MRI ANGIO NECK W [...] proximal right MCA upto the bifurcation on iwnv-lb-jchinn imaging with the opacification on postcontrast imaging. The report was drafted by Maryana Sanderson MD (Meat Cooler). Critical results discussed with Dr. Becker by Dr. Sanderson on 12/12/2021 at 8:[address] AM. [address] have personally reviewed and interpreted this examination/study. > Interpreting Provider: Re Sage Dr on 12/12/2021 10:13 AM Narrative 12/12/2021 10:13 AM CDT PROCEDURE: ??MRI ANGIO BRAIN ARTERIAL WO CONT, MRI BRAIN WO CONTRAST, MRI ANGIO NECK W CONTRAST, DATE/TIME OF EXAM: ??12/11/2021 8:31 PM, LOCATION ??[facility] INDICATION: Left leg weakness ADDITIONAL CLINICAL INFORMATION: Ordering Provider Reason For Exam: ??left leg weakness; hx of old strokes (accession [id number]). COMPARISON: CT brain dated 12/11/2021 at 12:10 [...] secondary to slow flow, on the noncontrast tpin-kw-gvfnjr imaging. However there is opacification of these segments including cavernous ICA terminus and M1 segments on postcontrast imaging. *Left carotid system: Patent ICA. No focal stenosis. Patent SHEA and MCA. Normal anterior communicating artery. Slightly larger caliber left ICA. *Posterior circulation: Patent vertebral arteries and basilar artery without stenosis. Patent adjunct philosophy faculty. There is origin of left BULLET LUBRICANT MIXER. There is no aneurysm. ?? MRA neck: [...] CONTRAST, DATE/TIME OF EXAM: 12/11/2021 8:31 PM, [facility] INDICATION: Left leg weakness ADDITIONAL CLINICAL INFORMATION: Ordering Provider Reason For Exam: left leg weakness; hx of old strokes (accession [id number]). COMPARISON: CT brain dated 12/11/2021 at 12:10 [...] secondary to slow flow, on the noncontrast onrh-yb-ghhgej imaging. However there is opacification of these segments including cavernous ICA terminus and M1 segments on postcontrastimaging. *Left carotid system: Patent ICA. No focal stenosis. Patent SHEA and MCA. Normal anterior communicating artery. Slightly larger caliber left ICA. *Posterior circulation: Patent vertebral arteries and basilar artery without stenosis. Patent adjunct philosophy faculty. There is origin of left BULLET LUBRICANT MIXER. There is no aneurysm. MRA neck: Artifact [...] terminus, proximal right MCA upto the bifurcationon qrij-wy-nuigpw imaging with the opacification on postcontrast imaging. The report was drafted by Maryana Sanderson MD (Meat Cooler). Critical results discussed with Dr. Becker by Dr. Sanderson on 12/12/2021 at 8:41 AM. I, Re Sage Dr have personally reviewed and interpreted this examination/study. > Interpreting Provider: Re Sage Dr on 12/12/2021 10:13 AM Bravo Woodson CROSS TIE CUTTER-POLITICAL DIRECTOR MR ORDERABLES * (ABNORMAL) TROPONIN I (12/11/2021 7:32 PM CDT) Troponin I 0.036(H) <0.032 ng/mL 12/11/2021 7:56 PM CDT [facility] Blood BLOOD SPECIMEN / Unknown Venipuncture / Unknown 12/11/2021 7:32 PM CDT 12/11/2021 7:39 PM CDT Ketan Snowden MD LAB - CHEMISTRY FELICE MILES [address] [address], [facility] [phone] * XR CHEST 1VW PORTABLE (12/11/2021 5:46 PM CDT) Anatomical Region Laterality Modality Chest Radiographic Evelyn ging 12/11/2021 8:30 PM CDT Narrative 12/12/2021 10:09 AM CDT PROCEDURE: ??XR CHEST 1VW PORTABLE, DATE/TIME OF EXAM: ??12/11/2021 5:46 PM, LOCATION ??[facility] INDICATION: R29.898: Left leg weakness ADDITIONAL CLINICAL INFORMATION: 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 TECHNIQUE: Frontal radiograph of the chest. FINDINGS/IMPRESSION: Mild bibasilar atelectasis. There is no pleural effusion or pneumothorax. The cardiomediastinal silhouette is normal. The visible bony thorax is intact. Report dictated by Romain Mckee MD, MD, PhD (senior vice president and chief information officer). Eddie Orourke have personally reviewed and interpreted this examination/study. 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 TECHNIQUE: Frontal radiograph of the chest. FINDINGS/IMPRESSION: Mild bibasilar atelectasis. There is no pleural effusion orpneumothorax. The cardiomediastinal silhouette is normal. The visible bony thorax is intact. Report dictated by Romain Mckee MD, MD, PhD (radiologyresident). I, Eddie Larsen have personally reviewed and interpreted this examination/study. > Interpreting Provider: Eddie Larsen on 12/12/2021 10:09 AM Ketan Snowden MD DIAGNOSTIC IMAGING O RDERABLES * BLOOD TYPE VERIFICATION (12/11/2021 3:21 PM CDT) ABO Rh A POS 12/11/2021 4:0 2 PM CDT [facility] Blood Bank BLOOD SPECIMEN / Unknown Venipuncture / Unknown 12/11/2021 3:21 PM CDT 12/11/2021 3:36 PM CDT Tere Dodd MD LAB - BLOOD BANK ORD ERABLES Performing Organization Address City/[facility]/ZIP Co de Phone Number [facility] [place] [place] [address], [facility] [phone] * TROPONIN I (12/11/2021 3:21 PM CDT) Troponin I 0.030 <0.032 ng/mL 12/11/2021 4:06 PM CDT [facility] Blood BLOOD SPECIMEN / Unknown Venipuncture / Unknown 12/11/2021 3:21 PM CDT 12/11/2021 3:36 PM CDT Bravo MCGRAW LAB - CHEMISTRY OR DERABLES [facility] [address] [place] [address], [facility] [phone] * ECHO COMPLETE W BUBBLE STUDY (12/11/2021 2:36 PM CDT) Anatomical Region Laterality Modality Chest Echo 12/11/2021 1:50 PM CDT Narrative Procedure Note Aliya Lombardi MD - 12/11/2021 Bravo Woodson CROSS TIE CUTTER-POLITICAL DIRECTOR ECHOCARDIOGRAPHY R ADIANT * EKG 12-LEAD (12/11/2021 12:43 PM CDT) Ventricular Rate 57 BPM [facility]USE Atrial Rate 57 BPM [facility] MUSE P-R Interval 182 ms [facility] QRS Duration ms 86 ms [facility] Q-T Interval ms 426 ms [facility] MUSE QTC Calculation (Bezet) 414 ms [facility] MUSE Calculated P [place] -13 degrees [facility] Calculated R [place] 3 degrees [facility] Calculated T [place] 151 degrees [facility]USE Interpretation EKG SINUS BRADYCARDIA T WAVE ABNORMALITY, CONSIDER LATERAL ISCHEMIA ABNORMAL ECG NO PREVIOUS ECGS AVAILABLE Confirmed by MD SHANTHI, PATTI ([id number]) on 12/12/2021 9:08:29 AM [facility] M[facility] 12/11/2021 12:4 3 PM CDT 12/12/2021 9:08 AM CDT Ketan Snowden MD ECG ORDERABLES [facility] * (ABNORMAL) GLUCOSE - POINT OF CARE (12/11/2021 12:34 PM CDT) Glucose WB/POC 174(H) 70 - 115 mg/dL 12/11/2021 12:35 PM CDT [facility] Specimen Type Cap Fingerstick 2021 12:35 PM CDT [facility] Blood BLOOD SPECIMEN / Unknown 12/11/2021 12:34 PM CDT 12/11/2021 12:34 PM CDT Ketan Snowden MD LAB - POINT OF CARE ORDERABLES Performing Organization Address City/[facility]/ZIP Co de Phone Number [facility] [address] [place] [address], [facility] [phone] * (ABNORMAL) HEMOGLOBIN A1C (12/11/2021 12:27 PM CDT) Hemoglobin A1c 7.1(H) <=5.6 % 12/12/2021 8:47 AM CDT [facility] Estimated Average Glucose 157 mg/dL 12/12/2021 8:47 AM CDT [facility] Comment: HbA1c Interpretation: Normal : < 5.7% Pre-diabetes: 5.7-6.4% Diabetes: Equal to or greater than 6.5% Test results diagnostic of diabetes should be repeated for confirmation. Treatment target values recommended by ADA and other clinical organizations should be used to evaluate metabolic control in patients. Reference: [place] [employer], Standards of Care in Diabetes -2020 In patients 70 years and older consider HbA1c target range of 7.0-7.5% (Reference: Israel Marcos et al. JAMDA. 2012) The Sebia assay for the measurement of HbA1c is a National Glycohemoglobin Standardization Program (NGSP) certified method. Blood BLOOD SPECIMEN / Unknown Venipuncture / Unknown 12/11/2021 12:27 PM CDT 12/11/2021 12:34 PM CDT Bravo Woodson APRN-MARGARITO LAB - CHEMISTRY OR DERABLES [facility] [address] [place] [id number], [place] [phone] * TYPE + SCREEN PANEL (12/11/2021 12:27 PM CDT) Antibody Screen NEG 1:21 PM CDT [facility] ABO Rh A POS 12/11/2021 1:21 PM CDT [facility] Blood Bank BLOOD SPECIMEN / Unknown Venipuncture / Unknown 12/11/2021 12:27 PM CDT 12/11/2021 12:37 PM CDT Ketan Snowden MD LAB - BLOOD BANK ORD PILLO Performing Organization Address [facility]/ZIP Co de Phone Number [facility] [address] [place] [address], [place] [phone] * (ABNORMAL) TROPONIN I (12/11/2021 12:27 PM CDT) Troponin I 0.042(H) <0.032 ng/mL 12/11/2021 1:06 PM CDT [facility] Blood BLOOD SPECIMEN / Unknown Venipuncture / Unknown 12/11/2021 12:27 PM CDT 12/11/2021 12:33 PM CDT Ketan Snowden MD LAB - CHEMISTRY FELICE MILES Performing Organization Address [facility] Co de Phone Number [address] [address], [place] [phone] * PTT [facility] (12/11/2021 12:27 PM CDT) APTT 35.2 23.0 - 38.4 Seconds 12/11/2021 1:13 PM CDT [facility] Comment:Suggested therapeuti c range for full dose I.V. unfractionated heparin therapy for venous thromboembolism is 71 to 109 seconds. Blood BLOOD SPECIMEN / Unknown Venipuncture / Unknown 12/11/2021 12:27 PM CDT 12/11/2021 12:33 PM CDT Ricardo WELCHC LAB - COAG ULATION ORDERABLES Performing Organization Address [facility]/ZIP Co de Phone Number [address] [address], [place] [phone] * PT-INR [facility] (12/11/2021 12:27 PM CDT) PT 13.0 12.1 - 14.8 Seconds 12/11/2021 1:18 PM [facility] INR 1.0 See Comment 12/11/2021 1:18 PM [facility] Comment:The suggested therap eutic range for standard coumadin (warfarin) therapy is an INR of 2.0-3.0. For high-risk patients (Mechanical Mitral Valve Prosthesis, etc.), the suggested prophylactic therapeutic range is an INR of 2.5-3.5. Blood BLOOD SPECIMEN / Unknown Venipuncture / Unknown 12/11/2021 12:27 PM CDT 12/11/2021 12:33 PM CDT Ricardo Andino PA-C LAB - COAG ULATION ORDERABLES [facility] [address] [place] [phone], [facility] [phone] * (ABNORMAL) COMPREHENSIVE METABOLIC PANEL (12/11/2021 12:27 PM CDT) BUN 20 7 - 26 mg/dL 12/11/2021 1:01 PM [facility] Creatinine 1.40(H) 0.71 - 1.16 mg/dL 12/11/2021 1:01 PM [facility] Sodium 135(L) 136 - 145 mmol/L 12/11/2021 1:01 PM [facility] Potassium 4.4 3.5 - 4.5 mmol/L 12/11/2021 1:01 PM [facility] Chloride 99 98 - 107 mmol/L 12/11/2021 1:01 PM [facility] CO2 27 22 - 29 mmol/L 12/11/2021 1:01 PM [facility] Glucose 188(H) 70 - 115 mg/dL 12/11/2021 1:01 PM [facility] Calcium 9.7 8.4 - 10.2 mg/dL 12/11/2021 1:01 PM [facility] Protein Total 7.2 6.0 - 8.3 g/dL 12/11/2021 1:01 PM [facility] Albumin 3.7 3.4 - 5.0 g/dL 12/11/2021 1:01 PM [facility] Bilirubin Total 0.7 0.2 - 1.2 mg/dL 12/11/2021 1:01 PM [facility] Alkaline Phosphatase 68 40 - 150 U/L 12/11/2021 1:01 PM [facility] ALT 11 5 - 55 U/L 12/11/2021 1:01 PM [facility] AST 13 5 - 34 U/L 12/11/2021 1:01 PM [facility] Anion Gap 13 8 - 18 12/11/2021 1:01 PM [facility] BUN/Creatinine Ratio 14 7 - 23 12/11/2021 1:01 PM [facility] Osmolality Calculated 288 270 - 300 mOsm/kg 12/11/2021 1:01 PM [facility] Albumin/Globulin Ratio 1.1 1.1 - 2.3 12/11/2021 1:01 PM [facility] eGFR by CKD-EPI 56(L) >=90 mL/min/1.7 3 m2 12/11/2021 1:01 PM [facility] Blood BLOOD SPECIMEN / Unknown Venipuncture / Unknown 12/11/2021 12:27 PM CDT 12/11/2021 12:34 PM CDT Ricardo Andino PA-C LAB - CHEM ISTRY ORDERABLES Performing Organization Address City/State/[facility] Co de Phone Number [facility] [address] [place] [phone], [facility] [phone] * (ABNORMAL) CBC W AUTO DIFFERENTIAL (12/11/2021 12:27 PM CDT) WBC 8.7 3.5 - 10.5 10? 3 /uL 12/11/2021 12:53 PM [facility] RBC 4.37 4.30 - 5.70 10? 6 /uL 12/11/2021 12:53 PM [facility] Hemoglobin 12.7 12.0 - 17.6 g/dL 12/11/2021 12:53 PM [facility] Hematocrit 37.8 35.2 - 51.7 % 12/11/2021 12:53 PM [facility] MCV 86.5 80.7 - 98.3 fL 12/11/2021 12:53 PM [facility] MCH 29.1 26.7 - 34.0 pg 12/11/2021 12:53 PM [facility] MCHC 33.6 30.8 - 35.9 g/dL 12/11/2021 12:53 PM [facility] Platelet Count 273 150 - 400 10? 3 /uL 12/11/2021 12:53 PM [facility] RDW-SD 46.1 36.0 - 50.0 fL 12/11/2021 12:53 PM [facility] RDW-CV 14.5 11.2 - 14.8 % 12/11/2021 12:53 PM [facility] MPV 8.8(L) 9.4 - 12.9 fL 12/11/2021 12:53 PM [facility] nRBC Absolute 0.00 0 10? 3 /uL 12/11/2021 12:53 PM [facility] nRBC Auto 0.0 0 /100 WBC 12/11/2021 12:53 PM [facility] Neutrophils % 76.0(H) 35.0 - 70.0 % 12/11/2021 12:53 PM [facility] Lymphocytes % 16.0(L) 20.0 - 43.0 % 12/11/2021 12:53 PM [facility] Monocytes % 5.6 5.0 - 13.0 % 12/11/2021 12:53 PM [facility] Eosinophils % 1.8 0.0 - 6.0 % 12/11/2021 12:53 PM [facility] Basophil % 0.3 0.0 - 2.0 % 12/11/2021 12:53 PM [facility] Neutrophils Absolute 6.61 1.60 - 7.00 10? 3 /uL 12/11/2021 12:53 PM [facility] Lymphocyte Absolute 1.39 1.10 - 3.90 10? 3 /uL 12/11/2021 12:53 PM [facility] Monocytes Absolute 0.49 0.26 - 1.07 10? 3 /uL 12/11/2021 12:53 PM CDT [facility] Eosinophils Absolute 0.16 0.00 - 0.47 10? 3 /uL 12/11/2021 12:53 PM CDT [facility] Basophils Absolute 0.03 0.00 - 0.08 10? 3 /uL 12/11/2021 12:53 PM CDT [facility] Immature Granulocytes % 0.3 0.0 - 1.0 % 12/11/2021 12:53 PM CDT [facility] Immature Granulocytes Absolute 0.03 12/11/2021 12:53 PM CDT [facility] Blood BLOOD SPECIMEN / Unknown Venipuncture / Unknown 12/11/2021 12:27 PM CDT 12/11/2021 12:34 PM CDT Ricardo Andino PA-C LAB - HARRY TOLOGY ORDERABLES [address] [address], [place] [phone] * (ABNORMAL) CREATININE - POCT INTERFACED (12/11/2021 12:14 PM CDT) [facility] Creatinine POCT 1.25 0.30 - 1.30 mg/dL 12/11/2021 2:40 PM CDT [facility] eGFR 64(L) >90 mL/min/1.7 3 m2 12/11/2021 2:40 PM CDT [facility] Blood BLOOD SPECIMEN / Unknown 12/11/2021 12:14 PM CDT 12/11/2021 2:40 PM CDT Ketan Snowden MD LAB - POINT OF CARE ORDERABLES [address] [address], [place] [phone] * INR WHOLE BLOOD - POINT OF CARE (IP) STROKE (12/11/2021 12:14 PM CDT) INR 1.0 0.9 - 1.2 12/11/2021 2:30 PM CDT [facility] Device [id number] 12/11/2021 2:30 PM CDT [facility] Ecosystem Ecology Professor ID [id number] 12/11/2021 2:30 PM CDT [facility] Blood BLOOD SPECIMEN / Unknown 12/11/2021 12:14 PM CDT 12/11/2021 2:30 PM CDT Ketan Snowden MD LAB - POINT OF CARE ORDERABLES [facility] [address] [place] [phone], [facility] [phone] * CT BRAIN STROKE (12/11/2021 12:10 PM CDT) Anatomical Region Laterality Modality Head Computed Tomogra phy 12/11/2021 12:1 9 PM CDT Impressions 12/11/2021 12:25 PM CDT IMPRESSION: 1. No acute intracranial hemorrhage. 2. Suspect a heterogeneous mass in the sella. Consider further evaluation with a brain MRI with and without contrast using a dynamic pituitary protocol. The findings were discussed by Dr. Segal with Dr. Becker at 1221 hours on 12/11/2021. > Interpreting Provider: Lauren Segal MD on 12/11/2021 12:25 PM Narrative 12/11/2021 12:25 PM CDT PROCEDURE: ??CT BRAIN STROKE, DATE/TIME OF EXAM: ??12/11/2021 12:24 PM, LOCATION ??[facility] INDICATION: R29.898: Left leg weakness ADDITIONAL CLINICAL INFORMATION: Ordering Provider Reason For Exam: ??CVA Technologist Note: Additional: COMPARISON: None. TECHNIQUE: Noncontrast CT brain was performed utilizing standard protocol. CT dose reduction technique was used, including Automated Exposure Control. FINDINGS: Parenchyma: No parenchymal hemorrhage. ??The orozco-white differentiation is distinct. ??There is a cystic encephalomalacia in the high right frontal and parietal lobes and in the right temporal occipital region represents an old MCA watershed infarcts. Several chronic lacunar infarcts are also demonstrated in the bilateral cerebellar hemispheres. There is no mass lesion or mass effect. Extraaxial Spaces: Normal for age. No subdural or epidural collections identified. There is a heterogeneous masslike area in the region of the sella with thinning of the left sellar wall. Ventricles: The ventricles are midline. There is mild generalized cerebral volume loss, in keeping with the patient's age. Orbits: Postsurgical changes from cataract extractions are seen in the globes. Sinuses: The imaged paranasal sinuses and mastoids are clear. Bones: No evidence of fracture or calvarial defect. The temporomandibular joints are well aligned. Other: Mild intracranial atherosclerosis is seen. Procedure Note Lauren Segal MD - 12/11/2021 PROCEDURE: CT BRAIN STROKE, DATE/TIME OF EXAM: 12/11/2021 12:24 PM, LOCATION [facility] INDICATION: R29.898: Left leg weakness ADDITIONAL CLINICAL INFORMATION: Ordering Provider Reason For Exam: CVA Technologist Note: Additional: COMPARISON: None. TECHNIQUE: Noncontrast CT brain was performed utilizing standard protocol. CT dose reduction technique was used, including Automated ExposureControl. FINDINGS: Parenchyma: No parenchymal hemorrhage. The orozco-white differentiationis distinct. There is a cystic encephalomalacia in the high right frontaland parietal lobes and in the right temporal occipital region represents anold MCA watershed infarcts. Several chronic lacunar infarcts are also demonstrated in the bilateral cerebellar hemispheres. There is no mass lesion or mass effect. Extraaxial Spaces: Normal for age. No subdural or epidural collections identified. There is a heterogeneous masslike area in the region of the sella with thinning of the left sellar wall. Ventricles: The ventricles are midline. There is mild generalizedcerebral volume loss, in keeping with the patient's age. Orbits: Postsurgical changes from cataract extractions are seen in the globes. Sinuses: The imaged paranasal sinuses and mastoids are clear. Bones: No evidence of fracture or calvarial defect. Thetemporomandibular joints are well aligned. Other: Mild intracranial atherosclerosis is seen. IMPRESSION: 1. No acute intracranial hemorrhage. 2. Suspect a heterogeneous mass in the sella. Consider furtherevaluation with a brain MRI with and without contrast using a dynamic pituitary protocol. The findings were discussed by Dr. Segal with Dr. Becker at 1221hours on 12/11/2021. 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, unspecified blood vessel laterality (HCC) Type 2 diabetes mellitus with unspecified complications (HCC) DM2 (diabetes mellitus, type 2) (HCC) Type II or unspecified type diabetes mellitus without mention of complication, not stated as uncontrolled Chronic low back pain Lumbago Left leg weakness Other musculoskeletal symptoms referable to limbs Primary hypertension Unspecified essential hypertension Smoker Tobacco use disorder documented in this encounter Administered Medications Inactive Administered Medications - up to 3 most recent administrations Medication Order MAR Action Action Date Dose Rate Site 0.9% NaCl infusion at 75 mL/hr, Intravenous, CONTINUOUS, Starting on Wed12/12/21 at 0815, Until Wed12/12/21 at 1515 $ New Bag/Syringe 12/12/2021 9:23 AM CDT 75 mL/hr 0.9% NaCl injection 1-10 mL 1-10 mL, Intracatheter, PRN, Other, peripheral line flush, Starting on Wed12/11/21 at 1200, Until Wed12/14/21 at 1702, Flush peripheral IV catheter with 1-10 mL of normal saline before and after medications and prn to clear blood from the line or to verify patency. 0.9% NaCl injection 1-10 mL 1-10 mL, Intracatheter, PRN, Other, peripheral line flush, Starting on Wed12/11/21 at 1204, Until Wed12/14/21 at 1702, Flush peripheral IV catheter with 1-10 mL of normal saline before and after medications and prn to clear blood from the line or to verify patency. 0.9% NaCl injection 10 mL 10 mL, Intracatheter, INTRA-PROCEDURE MULTIPLE, Starting on Wed12/11/21 at 1354, Until Wed12/11/21 at 1753, For Echo Procedure - Per Protocol Agitate saline before administration. $ Given 12/11/2021 2:31 PM CDT 10 mL $ Given 12/11/2021 2:30 PM CDT 10 mL 0.9% NaCl injection 3 mL 3 mL, Intracatheter, EVERY 8 HOURS, First dose on Wed12/11/21 at 1400, Until Discontinued, Flush peripheral IV catheter with 3 mL of normal saline every 8 hours. $ Given 12/14/2021 12:33 PM CDT 3 mL $ Given 12/14/2021 5:58 AM CDT 3 mL $ Given 12/13/2021 9:22 PM CDT 3 mL 0.9% NaCl injection 3 mL 3 mL, Intracatheter, EVERY 8 HOURS, First dose on Wed12/11/21 at 1400, Until Discontinued, Flush peripheral IV catheter with 3 mL of normal saline every 8 hours. $ Given 12/14/2021 12:33 PM CDT 3 mL $ Given 12/13/2021 9:22 PM CDT 3 mL $ Given 12/13/2021 1:12 PM CDT 3 mL aspirin chew tablet 81 mg 81 mg, Oral, ONCE, 1 dose, On Wed12/11/21 at 1300 $ Given 12/11/2021 1:41 PM CDT 81 mg aspirin chew tablet 81 mg 81 mg, Oral, DAILY, First dose on Wed12/12/21 at 0900, Until Discontinued, May give aspirin PO or OR $ Given 12/14/2021 9:10 AM CDT 81 mg $ Given 12/13/2021 8:34 AM CDT 81 mg $ Given 12/12/2021 9:14 AM CDT 81 mg atorvastatin (Lipitor) tablet 40 mg 40 mg, Oral, AT BEDTIME, First dose on Wed12/11/21 at 2100, Until Discontinued $ Given 12/11/2021 11:26 PM CDT 40 mg clopidogrel (plaVIX) tablet 75 mg 75 mg, Oral, DAILY, First dose on Wed12/12/21 at 1145, Until Discontinued $ Given 12/14/2021 9:10 AM CDT 75 mg $ Given 12/13/2021 8:34 AM CDT 75 mg $ Given 12/12/2021 11:55 AM CDT 75 mg dextrose IV 12.5 g 12.5 g, Intravenous, PRN, Other, Bedside Glucose less than 70 mg/dL -If NOT able to eat and/or NPO and with IV Access, Starting on 12/13/21 at 0756, Until 12/14/21 at 1702, If NOT able to eat and/or NPO [...] mg/dl. NOTIFY PROVIDER OF HYPOGLYCEMIC EVENT. dextrose IV 25 g 25 g, Intravenous, PRN, Other, Bedside Glucose less than 70 mg/dL -If NOT able to eat and/or NPO and with IV Access, Starting on 12/13/21 at 0756, Until 12/14/21 at 1702, If NOT able to eat and/or NPO [...] 80 mg/dl. NOTIFY PROVIDER OF HYPOGLYCEMIC EVENT. gadobutrol (Gadavist) injection Intravenous, CONTRAST ONCE, Starting on Amira 12/11/21 at 2031, Until 12/12/21 at 0756 $ Given - Contrast 12/11/2021 8:31 PM CDT 7 mL glucagon (Glucagen) injection 1 mg 1 mg, Intramuscular, PRN, Bedside Glucose less than 70 mg/dL - If NOT able to eat and/or NPO and withOUT IV Access, Starting on 12/13/21 at 0756, Until 12/14/21 at 1702, If NOT able to eat and/or NPO and NO IV Access: For Bedside glucose 54-69 mg/dL Give 1 mg IM or SQ For Bedside Glucose LESS than 54 mg/dl verify with a second bedside glucose (from a different site) and Give 1 mg IM or SQ Re-check and Re-treat blood glucose EVERY 10-25 [...] does not have swallowing difficulties, Starting on 12/13/21 at 0756, Until 12/14/21 at 1702, If able to eat and can swallow [...] pt is symptomatic, do not delay treatment Consider confirming the glucose with a STAT laboratory test Give [...] 80 mg/dl. NOTIFY PROVIDER OF HYPOGLYCEMIC EVENT. glucose (Diabetic Use) oral gel Oral, PRN, Other, Bedside Glucose less than 70 mg/dL -If able to eat and does not have swallowing difficulties, Starting on 12/13/21 at 0756, Until 12/14/21 at 1702, If able to eat and is better [...] pt is symptomatic, do not delay treatment Consider confirming the glucose with a STAT laboratory test Give [...] 80 mg/dl. NOTIFY PROVIDER OF HYPOGLYCEMIC EVENT. glucose chew tablet 4 tablet 4 tablet (16 g), Oral, PRN, Other, Bedside Glucose less than 70 mg/dL -If able to eat and does not have swallowing difficulties, Starting on 12/13/21 at 0756, Until 12/14/21 at 1702, If able to eat and does not [...] pt is symptomatic, do not delay treatment Consider confirming the glucose with a STAT laboratory test Give 32 grams of oral carbohydrates - 8 glucose tabs (see MAR) If patient refuses glucose gel, then offer: - 8 ounces of fruit juice OR - 8 ounces non-diet soda OR - 16 ounces of fat-free milk Re-check and Re-treat blood glucose EVERY 10-25 minutes until blood glucose GREATER than or equal to 80 mg/dl. NOTIFY PROVIDER OF HYPOGLYCEMIC EVENT. heparin injection 5,000 Units 5,000 Units, Subcutaneous, EVERY 8 HOURS, First dose on Amira 12/11/21 at 1400, Until Discontinued $ Given 12/14/2021 12:32 PM CDT 5,000 Units Abdominal Tissue $ Given 12/14/2021 5:57 AM CDT 5,000 Units R ight Arm $ Given 12/13/2021 9:21 PM CDT 5,000 Units A bd Left Lower Quadrant hydroCHLOROthiazide (Hydrodiuril) tablet 12.5 mg 12.5 mg, Oral, DAILY, 1 dose, First dose on 12/13/21 at 1630 $ Given 12/13/2021 4:37 PM CDT 12.5 mg insulin lispro (HumaLOG;ADMelog) 100 UNIT/ML pen 0-6 Units 0-6 Units, Subcutaneous, EVERY 6 HOURS, First dose on Wed12/13/21 at 0830, Until Discontinued, DO NOT HOLD CORRECTION BOLUS EVEN IF PATIENT IS NPO. IF THE PATIENT IS ALSO RECEIVING A TUBE FEED INSULIN BOLUS, THE CORRECTION BOLUS MAY BE COMBINED WITH TUBE FEED INSULIN BOLUS AND GIVEN AT THE SAME TIME. BEDSIDE GLUCOSE MUST BE PERFORMED AND DOCUMENTED WITHIN 30-60 MINUTES OF CORRECTION INSULIN ADMINISTRATION. BG (mg/dL) LESS than 70 = follow Hypoglycemic guidelines 150-200 = add 1 unit 201-250 = add 2 units 251-300 = add 3 units 301-350 = add 4 units 351-400 = add 5 units NOTIFY PHYSICIAN FOR BLOOD GLUCOSE GREATER THAN 350 GREATER than 400 = add 6 units NOTIFY PHYSICIAN FOR BLOOD GLUCOSE GREATER THAN 350 $ Given 12/14/2021 12:34 PM CDT 2 Units Abdominal Tissue $ Given 12/14/2021 6:06 AM CDT 2 Units Ri ght Arm $ Given 12/13/2021 5:57 PM CDT 1 Units Ab dominal Tissue nicotine (Nicoderm CQ) patch 14 mg 14 mg, Administer over 24 Hours, DAILY, First dose on Amira 12/11/21 at 1930, Until Discontinued, Remove old patch before applying new patch. This patch may contain metal and is not compatible with MRI. Notify radiology of patch location upon arrival to MRI. . WASTE DISPOSAL INSTRUCTIONS: P-Listed item. Special Disposal Required. . $ Applied 12/14/2021 9:14 AM CDT 14 mg Right Arm $ Applied 12/13/2021 9:35 AM CDT 14 mg Ri ght Arm $ Applied 12/12/2021 9:17 AM CDT 14 mg Le ft Arm perflutren lipid microsphere (Definity) injection 0.5 mL 0.5 mL, Intravenous, INTRA-PROCEDURE MULTIPLE, 6 doses, Starting on Amira 12/11/21 at 1354, Until Wed12/12/21 at 0756, For Echo Procedure - Per Protocol Give slowly Shake well before using. $ Given 12/11/2021 2:35 PM CDT 0.5 mL rosuvastatin (Crestor) tablet 40 mg 40 mg, Oral, AT BEDTIME, First dose on Wed12/12/21 at 2100, Until Discontinued $ Given 12/13/2021 9:22 PM CDT 40 mg $ Given 12/12/2021 8:25 PM CDT 40 mg tiotropium (Spiriva) 18 MCG inhalation capsule 1 capsule 1 capsule, Inhalation, DAILY, First dose on 12/13/21 at 0900, Until Discontinued, Please send inhaler with the patient on transfer. Two inhalations of the contents of 1 capsule once daily. $ Given 12/14/2021 9:10 AM CDT 1 capsule $ Given 12/13/2021 8:35 AM CDT 1 capsule documented in this encounter Active and Recently Administered Medications Times are shown in CDT. Scheduled Medication Order 12/12/2021 12/13/2021 12/14/2021 0.9% NaCl injection 3 mL(Linked Group 1) 3 mL, Intracatheter, EVERY 8 HOURS, First dose on Amira 12/11/21 at 1400, Until Discontinued, Flush peripheral IV catheter with 3 mL of normal saline every 8 hours. 0606 ($ Given - Provider: Nora Lovell RN)1202 (Not Administered - Provider: Molly Keene RN - Reason: IV Currently Infusing)2025 ($ Given - Provider: Patria Blair RN) 0537 ($ Given - Provider: Patria Blair RN)1313 ($ Given - Provider: Molly Keene RN)212 ($ Given - Provider: Patria Blair RN) 0558 ($ Given - Provider: Patria Blair RN)1233 ($ Given - Provider: Molly Keene RN) 0.9% NaCl injection 3 mL(Linked Group 2) 3 mL, Intracatheter, EVERY 8 HOURS, First dose on Amira 12/11/21 at 1400, Until Discontinued, Flush peripheral IV catheter with 3 mL of normal saline every 8 hours. 0605 ($ Given - Provider: Nora Lovell RN)1201 ($ Given - Provider: Molly Keene RN)2025 ($ Given - Provider: Patria Blair RN) 0537 ($ Given - Provider: Patria Blair RN)1312 ($ Given - Provider: Molly Keene RN)212 ($ Given - Provider: Patria Blair RN) 0558 (Not Administered - Provider: Patria Blair RN - Reason: Documented on duplicate row)1233 ($ Given - Provider: Molly Keene RN) aspirin chew tablet 81 mg(Linked Group 3) 81 mg, Oral, DAILY, First dose on Wed12/12/21 at 0900, Until Discontinued, May give aspirin PO or OR 0914 ($ Given - Provider: Molly Keene RN) 0834 ($ Given - Provider: Molly Keene, AGGIE) 0910 ($ Given - Provider: Molly Keene RN) clopidogrel (plaVIX) tablet 75 mg 75 mg, Oral, DAILY, First dose on Wed12/12/21 at 1145, Until Discontinued 1155 ($ Given - Provider: Molly Keene RN) 0834 ($ Given - Provider: Molly Keene RN) 0910 ($ Given - Provider: Molly Keene RN) heparin injection 5,000 Units 5,000 Units, Subcutaneous, EVERY 8 HOURS, First dose on Amira 12/11/21 at 1400, Until Discontinued 0606 ($ Given - Provider: Nora Lovell RN)1201 ($ Given - Provider: Molly Keene RN)2025 ($ Given - Provider: Patria Blair RN) 0538 ($ Given - Provider: Patria Blair RN)1310 ($ Given - Provider: Molly Keene, AGGIE)2121 ($ Given - Provider: Patria Blair RN) 0557 ($ Given - Provider: Patria Blair RN)1232 ($ Given - Provider: Molly Keene, AGGIE) hydroCHLOROthiazide (Hydrodiuril) tablet 12.5 mg (COMPLETED) 12.5 mg, Oral, DAILY, 1 dose, First dose on 12/13/21 at 1630 1637 ($ Given - Provider: Molly Keene, AGGIE) insulin lispro (HumaLOG;ADMelog) 100 UNIT/ML pen 0-6 Units 0-6 Units, Subcutaneous, EVERY 6 HOURS, First dose on 12/13/21 at 0830, Until Discontinued, DO NOT HOLD CORRECTION BOLUS EVEN IF PATIENT IS NPO. IF THE PATIENT IS ALSO RECEIVING A TUBE FEED INSULIN BOLUS, THE CORRECTION BOLUS MAY BE COMBINED WITH TUBE FEED INSULIN BOLUS AND GIVEN AT THE SAME TIME. BEDSIDE GLUCOSE MUST BE PERFORMED AND DOCUMENTED WITHIN 30-60 MINUTES OF CORRECTION INSULIN ADMINISTRATION. BG (mg/dL) LESS than 70 = follow Hypoglycemic guidelines 150-200 = add 1 unit 201-250 = add 2 units 251-300 = add 3 units 301-350 = add 4 units 351-400 = add 5 units NOTIFY PHYSICIAN FOR BLOOD GLUCOSE GREATER THAN 350 GREATER than 400 = add 6 units NOTIFY PHYSICIAN FOR BLOOD GLUCOSE GREATER THAN 350 0834 (Not Administered - Provider: Molly Keene RN - Reason: Per Administration Instructions - Comment: BG 142)1310 ($ Given - Provider: Molly Keene RN)1757 ($ Given - Provider: Molly Keene RN)2353 (Not Administered - Provider: Patria Blair RN - Reason: Per Administration Instructions) 0606 ($ Given - Provider: Patria Blair RN)1234 ($ Given - Provider: Molly Keene RN) nicotine (Nicoderm CQ) patch 14 mg 14 mg, Administer over 24 Hours, DAILY, First dose on Amira 12/11/21 at 1930, Until Discontinued, Remove old patch before applying new patch. This patch may contain metal and is not compatible with MRI. Notify radiology of patch location upon arrival to MRI. . WASTE DISPOSAL INSTRUCTIONS: P-Listed item. Special Disposal Required. . 0914 (Removed - Provider: Molly Keene RN)0917 ($ Applied - Provider: Molly Keene RN) 0835 (Removed - Provider: Molly Keene RN)0935 ($ Applied - Provider: Molly Keene RN) 0911 (Removed - Provider: Molly Keene RN)0914 ($ Applied - Provider: Molly Keene RN)1601 (Due: Removed - Provider: Generic, Auto Release - Comment: Time automatically adjusted from order being discontinued) rosuvastatin (Crestor) tablet 40 mg 40 mg, Oral, AT BEDTIME, First dose on Wed12/12/21 at 2100, Until Discontinued 2024 ($ Given - Provider: Patria Blair RN) 2121 ($ Given - Provider: Patria Blair RN) tiotropium (Spiriva) 18 MCG inhalation capsule 1 capsule 1 capsule, Inhalation, DAILY, First dose on Wed12/13/21 at 0900, Until Discontinued, Please send inhaler with the patient on transfer. Two inhalations of the contents of 1 capsule once daily. 0835 ($ Given - Provider: Molly Keene, RN) 0910 ($ Given - Provider: Molly Keene, RN) Continuous Medication Order 12/12/2021 12/13/2021 12/14/2021 0.9% NaCl infusion (CANCELED) at 75 mL/hr, Intravenous, CONTINUOUS, Starting on Wed12/12/21 at 0815, Until Wed12/12/21 at 1515 0923 ($ New Bag/Syringe - Provider: Molly Keene, AGGIE) PRN Medication Order 12/12/2021 12/13/2021 12/14/2021 0.9% NaCl injection 1-10 mL(Linked Group 1) 1-10 mL, Intracatheter, PRN, Other, peripheral line flush, Starting on Amira 12/11/21 at 1200, Until 12/14/21 at 1702, Flush peripheral IV catheter with 1-10 mL of normal saline before and after medications and prn to clear blood from the line or to verify patency. 0.9% NaCl injection 1-10 mL(Linked Group 2) 1-10 mL, Intracatheter, PRN, Other, peripheral line flush, Starting on Amira 12/11/21 at 1204, Until 12/14/21 at 1702, Flush peripheral IV catheter with 1-10 mL of normal saline before and after medications and prn to clear blood from the line or to verify patency. dextrose IV 12.5 g(Linked Group 4) 12.5 g, Intravenous, PRN, Other, Bedside Glucose less than 70 mg/dL -If NOT able to eat and/or NPO and with IV Access, Starting on 12/13/21 at 0756, Until 12/14/21 at 1702, If NOT able to eat and/or NPO [...] mg/dl. NOTIFY PROVIDER OF HYPOGLYCEMIC EVENT. dextrose IV 25 g(Linked Group 4) 25 g, Intravenous, PRN, Other, Bedside Glucose less than 70 mg/dL -If NOT able to eat and/or NPO and with IV Access, Starting on 12/13/21 at 0756, Until 12/14/21 at 1702, If NOT able to eat and/or NPO [...] 80 mg/dl. NOTIFY PROVIDER OF HYPOGLYCEMIC EVENT. glucagon (Glucagen) injection 1 mg 1 mg, Intramuscular, PRN, Bedside Glucose less than 70 mg/dL - If NOT able to eat and/or NPO and withOUT IV Access, Starting on 12/13/21 at 0756, Until 12/14/21 at 1702, If NOT able to eat and/or NPO and NO IV Access: For Bedside glucose 54-69 mg/dL Give 1 mg IM or SQ For Bedside Glucose LESS than 54 mg/dl verify with a second bedside glucose (from a different site) and Give 1 mg IM or SQ Re-check and Re-treat blood glucose EVERY 10-25 [...] does not have swallowing difficulties, Starting on 12/13/21 at 0756, Until 12/14/21 at 1702, If able to eat and can swallow [...] pt is symptomatic, do not delay treatment Consider confirming the glucose with a STAT laboratory test Give [...] 80 mg/dl. NOTIFY PROVIDER OF HYPOGLYCEMIC EVENT. glucose (Diabetic Use) oral gel Oral, PRN, Other, Bedside Glucose less than 70 mg/dL -If able to eat and does not have swallowing difficulties, Starting on 12/13/21 at 0756, Until 12/14/21 at 1702, If able to eat and is better [...] pt is symptomatic, do not delay treatment Consider confirming the glucose with a STAT laboratory test Give [...] 80 mg/dl. NOTIFY PROVIDER OF HYPOGLYCEMIC EVENT. glucose chew tablet 4 tablet 4 tablet (16 g), Oral, PRN, Other, Bedside Glucose less than 70 mg/dL -If able to eat and does not have swallowing difficulties, Starting on 12/13/21 at 0756, Until 12/14/21 at 1702, If able to eat and does not [...] pt is symptomatic, do not delay treatment Consider confirming the glucose with a STAT laboratory test Give 32 grams of oral carbohydrates - 8 glucose tabs (see MAR) If patient refuses glucose gel, then offer: - 8 ounces of fruit juice OR - 8 ounces non-diet soda OR - 16 ounces of fat-free milk Re-check and Re-treat blood glucose EVERY 10-25 minutes until blood glucose GREATER than or equal to 80 mg/dl. NOTIFY PROVIDER OF HYPOGLYCEMIC EVENT. Linked Groups Order Group 1: SALINE LOCK, INSERT AND MAINTAIN (CANCELED) Routine, CONTINUOUS, Starting on Amira 12/11/21 at 1215, Until Specified, New collection, Task Completed: Yes And 0.9% NaCl injection 3 mLJump to med 3 mL, Intracatheter, EVERY 8 HOURS, First dose on Wed12/11/21 at 1400, Until Discontinued, Flush peripheral IV catheter with 3 mL of normal saline every 8 hours. And 0.9% NaCl injection 1-10 mLJump to med 1-10 mL, Intracatheter, PRN, Other, peripheral line flush, Starting on Amira 12/11/21 at 1200, Until 12/14/21 at 1702, Flush peripheral IV catheter with 1-10 mL of normal saline before and after medications and prn to clear blood from the line or to verify patency. Group 2: SALINE LOCK, INSERT AND MAINTAIN (CANCELED) Routine, CONTINUOUS, Starting on Amira 12/11/21 at 1215, Until Specified, New collection, Task Completed: Yes And 0.9% NaCl injection 3 mLJump to med 3 mL, Intracatheter, EVERY 8 HOURS, First dose on Amira 12/11/21 at 1400, Until Discontinued, Flush peripheral IV catheter with 3 mL of normal saline every 8 hours. And 0.9% NaCl injection 1-10 mLJump to med 1-10 mL, Intracatheter, PRN, Other, peripheral line flush, Starting on Amira 12/11/21 at 1204, Until 12/14/21 at 1702, Flush peripheral IV catheter with 1-10 mL of normal saline before and after medications and prn to clear blood from the line or to verify patency. Group 3: aspirin chew tablet 81 mgJump to med 81 mg, Oral, DAILY, First dose on Wed12/12/21 at 0900, Until Discontinued, May give aspirin PO or OR Or aspirin suppository 300 mg (CANCELED) 300 mg, Rectal, DAILY, First dose on Wed12/12/21 at 0900, Until Discontinued, May give aspirin PO or OR Group 4: dextrose IV 12.5 gJump to med 12.5 g, Intravenous, PRN, Other, Bedside Glucose less than 70 mg/dL -If NOT able to eat and/or NPO and with IV Access, Starting on 12/13/21 at 0756, Until 12/14/21 at 1702, If NOT able to eat and/or NPO [...] NOTIFY PROVIDER OF HYPOGLYCEMIC EVENT. Or dextrose IV 25 gJump to med 25 g, Intravenous, PRN, Other, Bedside Glucose less than 70 mg/dL -If NOT able to eat and/or NPO and with IV Access, Starting on 12/13/21 at 0756, Until 12/14/21 at 1702, If NOT able to eat and/or NPO and with IV Access: For Bedside Glucose 54- 69 mg/dL give 12.5 g Dextrose IV STAT For Bedside Glucose LESS than 54 mg/dl verify with a second Bedside Glucose (from a different site) and give 25 g Dextrose IV STAT Re-check and Re-treat blood glucose EVERY , 10-25 minutes until blood glucose GREATER than or equal to 80 mg/dl. NOTIFY PROVIDER OF HYPOGLYCEMIC EVENT. documented in this encounter Care Teams It Investment/Portfolio Manager Relationship Specialty Start Date End Date [facility], Jose Sanchez [address] [place] [address] PCP - [facility] 12/11/21 12/14/21 documented as of this encounter
--- OUTSIDE RECORDS SUMMARY | 2024-05-22 00:03 | XMS_ITS | Encounter Summary ---
Author Organization [facility] Address [address] [place] [address] Care Team Providers Care Administrative Services Manager Name Role Phone Gildardo Kelley MD Primary Care Provider [phone] Reason for Visit * Reason Onset Date Comments Question 12/18/2021 Encounter Details Date Type Department Care Team (Late st Contact Info) Description 12/18/2021 Telephone [facility] [address] [facility], [facility] [place] [id number] Ru Addison MD [address] [place] [address] Question Social History Tobacco Use Types Packs/Day [...] No 12/14/2021 documented as of this encounter Miscellaneous Notes * Telephone Encounter - Josy Connelly LPN - 12/18/2021 1:18 PM CDT Spoke with pt, who is scheduled to see his PCP at the [facility] tomorrow. Advised pt that this nurse will f/u with him after that appt to see if diagnostic cerebral angiogram is approved by the [place]. This nurse's direct phone number provided to pt. * Telephone Encounter - Unique Luna - 12/18/2021 12:54 PM CDT PT IS Calling would like a call from you Ludivina he is confused about what and when about Testing. Hestates you told him a date and he is questioning this Test because he states he has had it done if its what he thinks. He can be reached @ [phone]. Pt states he left a Voicemail As well. Thanks documented in this encounter Plan of Treatment Not on file documented as of this encounter Visit Diagnoses Not on filedocumented in this encounter Care Teams Administrative Services Manager Relationship Specialty Start Date End Date Gildardo Kelley MD [address] [place] [address] PCP - General 12/15/21 03/05/22 documented as of this encounter
--- OUTSIDE RECORDS SUMMARY | 2024-05-22 00:03 | XMS_ITS | Encounter Summary ---
Author Organization [facility] Health Address [address] [place] [address] Care Team Providers Care Gas Leak Inspector Name Role Phone Gildardo Kelley MD Primary Care Provider [phone] Reason for Visit * Radiology Services (Routine) - Closed Specialty Diagnoses / Procedures Referred By Contac t Referred To Contact Interventional Radiology Diagnoses Carotid stenosis, left Carotid occlusion, right Procedures IR CAROTID CEREBRAL ANGIOGRAM Ru Addison MD [address] [place] [address] [facility] [address] [place] [address] Referral ID Status Reason Start Date Expiration Date Visits Re quested Visits Authorized [id number] Closed 12/26/2021 06/24/2022 1 1 Encounter Details Date Type Department Care Team (Latest Contact Info) Description 01/19/2022 7:44 AM CDT - 01/19/2022 1:45 PM T Hospital Encounter [facility] [address] [place] [id number] Ru Addison MD [address] [place] [address] Interven Radiology Discharge Disposition: Home or Self Care Social History Tobacco Use Types Packs/Day Years [...] Sign Reading Time Taken Comments Blood Pressure 162/84 01/19/2022 1:15 PM CDT Pulse 45 01/19/2022 1:15 PM CDT Temperature 36.4 ??C (97.5 ??F) 01/19/2022 1 1:45 AM CDT Respiratory Rate 18 01/19/2022 1:15 PM CDT Oxygen Saturation 95% 01/19/2022 1:15 PM CDT Inhaled Oxygen Concentration - - Weight 105.3 kg (232 lb 1.6 oz) 01/19/2022 9:26 AM CDT Height 177.8 cm (5' 10 ) 01/19/2022 9:26 AM CDT Body Mass Index 33.3 01/19/2022 9:26 AM CDT documented in this encounter Functional [...] No 01/19/2022 documented as of this encounter Discharge Instructions * Discharge Instructions* Jorge Hall MD - 01/19/2022 11:29 AM CDT INTERVENTIONAL NEUROLOGY/RADIOLOGY OUTPATIENT PHYSICIAN DISCHARGE ORDER Activity: No lifting > 20 pounds x 3 days Post Moderate Sedation instructions: During the procedure, you received sedation medications that might linger in your system up to 24 hours after administration. Therefore, for the next 24 hours, donot drive a car or use heavy equipment. An adult should drive you home and stay with you after you have had moderate sedation. Follow your caregiver's advice about making changes to your diet, activity, or medicine. Avoid hardexercise right after having moderate sedation. Do not drink alcoholic beverages, such as beer and wine etc. Do not make important decisions for 24 hours (one day) after having moderate sedation like big financial decisions, selling property, etc. Medications: See the after visit summary for a complete list. IF prescribed pain medications, do not take on an empty stomach. Do not drive, drink alcohol or operate machinery while taking medication. We have not made anychanges to your previously prescribed medications. Diet: No restrictions Dressing Care: wash off at 3 days Wound Care: keep covered with band aid until fully healed Call Doctor: Please call [phone], and ask centrifugal drier operator to page neurointerventional fellow director of collections If you have one or more of the following, please call your physician: A. Redness or swelling of the operative site. B. Persistent bleeding through bandage. C. Severe pain which is not relieved by oral pain medication. D. Temperature above 101 degrees or severe chilling. E. Foul odor of drainage. If you are unable to reach your physician with an urgent or severe problem: 1. Call [phone] and ask the centrifugal drier operator to page/connect to the neurology or stroke resident director of collections. 2. Call the emergency room at documented in this encounter Medications at Time [...] daily as needed for Shortness of Breath 10/14/19 23 aspirin EC (Ecotrin) 81 MG tablet Take 81 mg by mouth once daily 10/13/2022 brinzolamide-brimonid ine (Simbrinza) 1-0.2 % ophthalmic suspension Instill 1 drop into left eye 3 times daily Per patient, he takes prn when he feels pressure in his eye (~2-3 times per week) 10/13/2022 carboxymethylcellulos e 1 % ophthalmic gel INSTILL 1 DROP INTO AFFECTED EYE(S) FOUR TIMES A DAY NEEDED FOR DRY EYES 01/14/2022 10/13/2022 carvedilol (Coreg) 12.5 MG tablet 0.5 (one-half) tablet 05/06/202110/2022 empagliflozin (Jardiance) 25 MG tablet Take 12.5 mg by mouth once daily Take 1/2 tablet (12.5 mg) daily ezetimibe (Zetia) 10 MG tablet 0.5 (one-half) tablet 12/10/20212022 fluticasone-salmetero l (Advair/Wixela) 100-50 MCG/ACT inhaler Inhale 1 puff by mouth 2 times daily Per patient, he gets the medication filled but doesn't take it because of the inconvenience of having to rinse his mouth out after use. 10/13/2022 hydroCHLOROthiazide (Hydrodiuril) 25 MG tablet 0.5 (one-half) tablet 12/19/20212022 lidocaine (Lidoderm) 5 % patch Apply 1 patch to skin once daily For back pain 023 polyvinyl alcohol-povidone PF 1.4-0.6 % ophthalmic solution INSTILL 1 DROP IN BOTH EYES FOUR TIMES A DAY FOR DRY EYES 01/14/2022 10/13/2022 rosuvastatin (Crestor) 40 MG tablet Take 40 mg by mouth every evening 10/13/2022 ticagrelor (Brilinta) 90 MG tablet Take 90 mg by mouth 2 times daily 10/13/2022 tiotropium (Spiriva Respimat) 2.5 MCG/ACT inhaler Inhale 2 puffs by mouth once daily 10/13/2022 documented as of this encounter Progress Notes * Kate Stark RN - 01/19/2022 11:20 AM CDT Interventional Radiology Nursing - End Procedure Note Sedation: Versed: 1 mg, Fentanyl: 25 mcg Sedation start time: 1058 hours Procedure start time: 1055 hours Procedure end time: 1118 hours Additional drugs: Radial access cocktail (through intraarterial sheath): 3000 units Heparin, 2.5 mgVerapamil,300 mcg Nitroglycerin Contrast: 30 mL of Isovue-300 Fluoroscopy time: 4 min documented in this encounter H&P Notes * Jorge Hall MD - 01/19/2022 9:22 AM CDT Neuro Intervention H & P Patient Name: Brent Higginbotham Age: [age] year old Reason for Angiogram: Carotid disease History: The patient is a 66 year old male who is here to undergo a cerebral angiogram. 66 yo male with PMHx HTN, HLD, DM. CAD s/p stenting, tobacco use, who recently presented for transient left leg weakness. MRI brain showed right frontal cortical stroke and chronic infarcts in??parietal, temporo-occipital regions. On MRA he was found to have occlusion of the right internal carotid artery from its origin with reconstitution from the cavernous segment and 50-79% occlusion of his left internal carotid.?? The angiogram is going to be performed by Dr. Addison Physical Examination: Mental Status: Awake, alert, oriented CN: Pupils mm RTL both sides, face symmetric Motor: no drift of any extremity Sensory: Reports equal to light touch bilaterally Coord: FNF intact bilaterally Gait was not assessed due to patient factors Labs Cr p INR p Plt p Sedation Risk Assessment Any oral intake after midnight? No Time of last oral intake: NPO since MN Previous adverse reaction to conscious sedation or other types of anesthesia? No Aspiration risk? No History of substance abuse? No Possibility of ? No History of stridor, snoring, disturbed sleep or obstructive sleep apnea? No History of oropharyngeal surgery? No History of chronic analgesic drugs? No History of gastric outlet obstruction, intestinal obstruction or hiatal hernia? No Pre-procedure mRS (modified galina score)- 2 ASA physical status classification: ASA 3 - Patient with moderate systemic disease with functional limitations Sedation Plan: Moderate sedation The risks and benefits for the procedure were explained in detail to patient and his family. The risk of contrast reaction, damage to the femoral artery, and stroke were specifically mentioned. Written informed consent was obtained. Assessment/Plan 66 year old male that presented with PMHx HTN, HLD, DM. CAD s/p stenting, tobacco use, who recentlypresented for transient left leg weakness. MRI brain showed right frontal cortical stroke and chronic infarcts in??parietal, temporo- occipital regions. On MRA he was found to have occlusion of the right internal carotid artery from its origin with reconstitution from the cavernous segment and 50-79% occlusion of his left internal carotid.??Today he's here to receive a cerebral angiogram to evaluate for occlusion vs severe stenosis of R ica, evaluate degree of stenosis of L ica, and assess for collateral flow. Discussed with Vascular and Neuro-intervention attending Dr. Azael Hall MD 01/19/2022 9:22 AM documented in this encounter Plan of Treatment Not on file documented as of this encounter Procedures Procedure Name Priority Date/Time Associated Diagnosis Comments IR CAROTID CEREBRAL ANGIOGRAM Routine 01/19/2022 11:07 AM CDT Carotid stenosis, left Carotid occlusion, right GLUCOSE - POINT OF CARE Routine 01/19/2022 9:52 AM CDT PT-INR [facility] Routine 01/19/2022 9:48 AM CDT Pre-procedure lab exam CBC W AUTO DIFFERENTIAL Routine 01/19/2022 9:48 AM CDT Pre-procedure lab exam BASIC METABOLIC PANEL (CALCIUM TOTAL) Routine 01/19/2022 9:48 AM CDT Pre-procedure lab exam documented in this encounter Results * IR CAROTID CEREBRAL ANGIOGRAM (01/19/2022 11:07 AM CDT) Anatomical Region Laterality Modality Head X-Ray Angiograph y 01/22/2022 9:59 AM CDT Impressions 02/02/2022 12:54 PM CDT Impression: -The KINSYE is occluded -The flow limiting stenosis of [...] is here for catheter angiography to . Regulatory Agency Director: Jc Addison Machine Packager(s): Christy Bolivar Vessels: Ultrasound Guided Access of Radial Artery Right Radial Artery Angiogram Left Subclavian Artery Angiogram: Cervical and Cerebral Left Vertebral Artery Angiogram: Cervical and Cerebral Left Common Carotid Artery Angiogram: Cervical and Cerebral Right Common Carotid Artery Angiogram: Cervical and Cerebral Right Subclavian Artery Angiogram: Cervical and Cerebral Anesthesia: Moderate sedation on this adult patient was ordered by the centrifugal drier operator, administered intravenously in my presence, and monitored by the procedure nurse as an independent trained observer who was present throughout the procedure. The following parameters were monitored: oxygen saturation, heart rate, blood pressure, and response to care. Total physician intra-service sedation time was 27 mins. For details on sedation patient evaluation, please review the evaluation in [facility]. For details on monitored clinical parameters during the intra-service sedation time, please review the procedure nurse documentation in [facility]. Procedural detail: The risks, benefits, and [...] Following a series of exchanges, a 5 Honduran 11 cm Glidesheath slender was placed in the radial artery. A radial angiogram was performed through the sheath. A spasmolytic cocktail containing 3000u heparin, 2.5mg verapamil, and 200mcg of nitroglycerin was administered. A 5 [place]uran Glidecath Case 2 diagnostic catheter along with [...] arterial system. Hemostasis was achieved using a Terumo radial band [...] He is here for catheter angiography to. Regulatory Agency Director: Jc Addison Machine Packager(s): Christy Bolivar Vessels: Ultrasound Guided Access of Radial Artery Right Radial Artery Angiogram Left Subclavian Artery Angiogram: Cervical and Cerebral Left Vertebral Artery Angiogram: Cervical and Cerebral Left Common Carotid Artery Angiogram: Cervical and Cerebral Right Common Carotid Artery Angiogram: Cervical and Cerebral Right Subclavian Artery Angiogram: Cervical and Cerebral Anesthesia: Moderate sedation on this adult patient was ordered by the centrifugal drier operator, administered intravenously in my presence, and monitored by theprocedure nurse as an independent trained observer who was present throughout the procedure. The following parameters were monitored: oxygen saturation, heart rate, blood pressure, and response to care. Total physician intra-service sedation time was 27 mins. For details on sedation patient evaluation, please review the evaluation in [facility]. For details onmonitored clinical parameters during the intra-service sedation time, pleasereview the procedure nurse documentation in [facility]. Procedural detail: The risks, benefits, and [...] needle. Followinga series of exchanges, a 5 [place]uran 11 cm Glidesheath slender was placed inthe radial artery. A radial angiogram was performed through the sheath. A spasmolytic cocktail containing 3000u heparin, 2.5mg verapamil, [id number] of nitroglycerin was administered. A 5 [place]uran Glidecath Case 2 diagnostic catheter along with [...] the arterial system.Hemostasis was achieved using a Cashsquare radial band closure device. Hemostasis was immediate [...] Ru Addison MD IR ORDERABLES * (ABNORMAL) GLUCOSE - POINT OF CARE (01/19/2022 9:52 AM CDT) Glucose WB/POC 177(H) 70 - 115 mg/dL 01/19/2022 9:53 AM CDT [facility] Specimen Type Venous 01/19/2022 9:53 AM CDT [facility] Blood BLOOD SPECIMEN / Unknown 01/19/2022 9:52 AM CDT 01/19/2022 9:53 AM CDT Ru Addison MD LAB - POINT OF CARE ORDERABLES [facility] [address] [place] [address], [facility] [phone] * PT-INR [facility] (01/19/2022 9:48 AM CDT) PT 12.4 12.1 - 14.8 Seconds 01/19/2022 10:28 AM CDT [facility] INR 0.9 See Comment 01/19/2022 10:28 AM T [facility] Comment:The suggested therap eutic range for standard coumadin (warfarin) therapy is an INR of 2.0-3.0. For high-risk patients (Mechanical Mitral Valve Prosthesis, etc.), the suggested prophylactic therapeutic range is an INR of 2.5-3.5. Blood BLOOD SPECIMEN / Unknown Venipuncture / Unknown 01/19/2022 9:48 AM CDT 01/19/2022 9:56 AM CDT Kristi A Overberg PA-C LAB - COAGULATION ORDERABLES [facility] [address] [place] [address], [facility] [phone] * (ABNORMAL) CBC W AUTO DIFFERENTIAL (01/19/2022 9:[address] [facility]) WBC 8.5 3.5 - 10.5 10? 3 /uL 01/19/2022 10:02 AM [facility] RBC 4.50 4.30 - 5.70 10? 6 /uL 01/19/2022 10:02 AM [facility] Hemoglobin 12.7 12.0 - 17.6 g/dL 01/19/2022 10:02 AM [facility] Hematocrit 38.6 35.2 - 51.7 % 01/19/2022 10:02 AM [facility] MCV 85.8 80.7 - 98.3 fL 01/19/2022 10:02 AM [facility] MCH 28.2 26.7 - 34.0 pg 01/19/2022 10:02 AM [facility] MCHC 32.9 30.8 - 35.9 g/dL 01/19/2022 10:02 AM [facility] Platelet Count 237 150 - 400 10? 3 /uL 01/19/2022 10:02 AM [facility] RDW-SD 42.7 36.0 - 50.0 fL 01/19/2022 10:02 AM [facility] RDW-CV 13.8 11.2 - 14.8 % 01/19/2022 10:02 AM [facility] MPV 8.6(L) 9.4 - 12.9 fL 01/19/2022 10:02 AM [facility] nRBC Absolute 0.00 0 10? 3 /uL 01/19/2022 10:02 AM [facility] nRBC Auto 0.0 0 /100 WBC 01/19/2022 10:02 AM [facility] Neutrophils % 68.1 35.0 - 70.0 % 01/19/2022 10:02 AM [facility] Lymphocytes % 21.1 20.0 - 43.0 % 01/19/2022 10:02 AM [facility] Monocytes % 6.3 5.0 - 13.0 % 01/19/2022 10:02 AM [facility] Eosinophils % 3.5 0.0 - 6.0 % 01/19/2022 10:02 AM [facility] Basophil % 0.5 0.0 - 2.0 % 01/19/2022 10:02 AM [facility] Neutrophils Absolute 5.82 1.60 - 7.00 10? 3 /uL 01/19/2022 10:02 AM [facility] Lymphocyte Absolute 1.80 1.10 - 3.90 10? 3 /uL 01/19/2022 10:02 AM [facility] Monocytes Absolute 0.54 0.26 - 1.07 10? 3 /uL 01/19/2022 10:02 AM [facility] Eosinophils Absolute 0.30 0.00 - 0.47 10? 3 /uL 01/19/2022 10:02 AM [facility] Basophils Absolute 0.04 0.00 - 0.08 10? 3 /uL 01/19/2022 10:02 AM [facility] Immature Granulocytes % 0.5 0.0 - 1.0 % 01/19/2022 10:02 AM [facility] Immature Granulocytes Absolute 0.04 01/19/2022 10:02 AM [facility] Blood BLOOD SPECIMEN / Unknown Venipuncture / Unknown 01/19/2022 9:48 AM CDT 01/19/2022 9:56 AM CDT Kristi Toure PA-C LAB - HEMATOLOGY ORDERABLES [facility] [address] [place] [id number], [facility] [phone] * (ABNORMAL) BASIC METABOLIC PANEL (CALCIUM TOTAL) (01/19/2022 9:48 AM CDT) BUN 21 7 - 26 mg/dL 01/19/2022 10:31 AM [facility] Creatinine 1.26(H) 0.71 - 1.16 mg/dL 01/19/2022 10:31 AM [facility] Sodium 137 136 - 145 mmol/L 01/19/2022 10:31 AM [facility] Potassium 4.8(H) 3.5 - 4.5 mmol/L 01/19/2022 10:31 AM [facility] Comment:Hemolysis detected i n this specimen. Hemolysis may cause false elevations in potassium leading to pseudohyperkalemia or masked hypokalemia. Recommend repeat testing if clinically indicated. Chloride 102 98 - 107 mmol/L 01/19/2022 10:31 AM [facility] CO2 27 22 - 29 mmol/L 01/19/2022 10:31 AM [facility] Glucose 167(H) 70 - 115 mg/dL 01/19/2022 10:31 AM [facility] Calcium 9.9 8.4 - 10.2 mg/dL 01/19/2022 10:31 AM [facility] Anion Gap 13 8 - 18 01/19/2022 10:31 AM [facility] BUN/Creatinine Ratio 17 7 - 23 01/08 10:31 AM [facility] Osmolality Calculated 291 270 - 300 mOsm/kg 01/19/2022 10:31 AM [facility] eGFR by CKD-EPI 63(L) >=90 mL/min/1 .73 m2 01/19/2022 10:31 AM [facility] Blood BLOOD SPECIMEN / Unknown Venipuncture / Unknown 01/19/2022 9:48 AM T 01/19/2022 9:[address] [facility] Kristi Toure PA-C LAB - CHEMISTRY O RDERABLES [facility] [address] [place] [phone], [facility] [phone] documented in this encounter Visit Diagnoses Diagnosis Pre-procedure lab exam- Primary Pre-procedural laboratory examination Carotid stenosis, left Occlusion and stenosis of carotid artery without mention of cerebral infarction Carotid occlusion, right Occlusion and stenosis of carotid artery without mention of cerebral infarction documented in this encounter Admitting Diagnoses Diagnosis Carotid stenosis, left Occlusion and stenosis of carotid artery without mention of cerebral infarction documented in this encounter Administered Medications Inactive Administered Medications - up to 3 most recent administrations Medication Order MAR Action Action Date Dose Rate Site 0.9% NaCl injection 1-10 mL 1-10 mL, Intracatheter, PRN, Other, peripheral line flush, Starting on Wed01/19/22 at 0907, Until Wed01/19/22 at 1446, Flush peripheral IV catheter with 1-10 mL of normal saline before and after medications and prn to clear blood from the line or to verify patency., Pre-procedure (IR) 0.9% NaCl injection 3 mL 3 mL, Intracatheter, EVERY 8 HOURS, First dose on Wed01/19/22 at 0915, Until Discontinued, Flush peripheral IV catheter with 3 mL of normal saline every 8 hours., Pre-procedure (IR) fentaNYL (PF) (Sublimaze) injection ONCE PRN, Starting on Wed01/19/22 at 1058, Until Wed01/19/22 at 1058 $ Given 01/19/2022 10:58 AM CDT 25 mcg heparin 5,000 Units, nitroGLYCERIN 50 mg in 250 mL 300 mcg, verapamil (Isoptin) 2.5 mg 3.5 mL ONCE PRN, Starting on Wed01/19/22 at 1016, Until Wed01/19/22 at 1103 $ Given 01/19/2022 11:03 AM CDT heparinized saline 2 units/ml infusion Other, CONTINUOUS PRN, Starting on Wed01/19/22 at 1014, Until Wed01/19/22 at 1014 $ New Bag/Syringe 01/19/2022 10:14 AM CDT 1,000 mL iopamidol (Isovue 300) 61 % contrast ONCE PRN, Starting on Wed01/19/22 at 1120, Until Wed01/19/22 at 1120 $ Given 01/19/2022 11:20 AM CDT 30 mL lidocaine (Xylocaine) 1 % injection Subcutaneous, ONCE PRN, Starting on Wed01/19/22 at 1015, Until Wed01/19/22 at 1015 $ Given 01/19/2022 10:15 AM CDT 10 mL See Comments midazolam (Versed) injection Intravenous, ONCE PRN, Starting on Wed01/19/22 at 1058, Until Wed01/19/22 at 1103 $ Given 01/19/2022 11:03 AM CDT 0.5 mg $ Given 01/19/2022 10:58 AM CDT 0.5 mg documented in this encounter Active and Recently Administered Medications Times are shown in CDT. Scheduled Medication Order 01/17/2022 01/18/2022 01/19/2022 0.9% NaCl injection 3 mL(Linked Group 1) 3 mL, Intracatheter, EVERY 8 HOURS, First dose on Wed01/19/22 at 0915, Until Discontinued, Flush peripheral IV catheter with 3 mL of normal saline every 8 hours., Pre-procedure (IR) 0915 (Due) PRN Medication Order 01/17/2022 01/18/2022 01/19/2022 0.9% NaCl injection 1-10 mL(Linked Group 1) 1-10 mL, Intracatheter, PRN, Other, peripheral line flush, Starting on Wed01/19/22 at 0907, Until Wed01/19/22 at 1446, Flush peripheral IV catheter with 1-10 mL of normal saline before and after medications and prn to clear blood from the line or to verify patency., Pre-procedure (IR) fentaNYL (PF) (Sublimaze) injection (COMPLETED) ONCE PRN, Starting on Wed01/19/22 at 1058, Until Wed01/19/22 at 1058 1058 ($ Given - Prov ider: Kate Stark RN) heparin 5,000 Units, nitroGLYCERIN 50 mg in 250 mL 300 mcg, verapamil (Isoptin) 2.5 mg 3.5 mL (COMPLETED) ONCE PRN, Starting on Wed01/19/22 at 1016, Until Wed01/19/22 at 1103 1103 ($ Given - Prov ider: Ru Addison MD) heparinized saline 2 units/ml infusion (COMPLETED) Other, CONTINUOUS PRN, Starting on Wed01/19/22 at 1014, Until Wed01/19/22 at 1014 1014 ($ New Bag/Syri nge - Provider: Ru Addison MD - Comment: to table) iopamidol (Isovue 300) 61 % contrast (COMPLETED) ONCE PRN, Starting on Wed01/19/22 at 1120, Until Wed01/19/22 at 1120 1120 ($ Given - Prov ider: Ru Addison MD) lidocaine (Xylocaine) 1 % injection (COMPLETED) Subcutaneous, ONCE PRN, Starting on Wed01/19/22 at 1015, Until Wed01/19/22 at 1015 1015 ($ Given - Prov ider: Ru Addison MD - Comment: to table) midazolam (Versed) injection (COMPLETED) Intravenous, ONCE PRN, Starting on Wed01/19/22 at 1058, Until Wed01/19/22 at 1103 1058 ($ Given - Prov ider: Kate Stark, RN)1103 ($ Given - Provider: Kate Stark RN) Linked Groups Order Group 1: SALINE LOCK, INSERT AND MAINTAIN (CANCELED) Routine, CONTINUOUS, Starting on Wed01/19/22 at 0915, Until Specified, Pre- procedure (IR), New collection And 0.9% NaCl injection 3 mLJump to med 3 mL, Intracatheter, EVERY 8 HOURS, First dose on Wed01/19/22 at 0915, Until Discontinued, Flush peripheral IV catheter with 3 mL of normal saline every 8 hours., Pre-procedure (IR) And 0.9% NaCl injection 1-10 mLJump to med 1-10 mL, Intracatheter, PRN, Other, peripheral line flush, Starting on Wed01/19/22 at 0907, Until Wed01/19/22 at 1446, Flush peripheral IV catheter with 1-10 mL of normal saline before and after medications and prn to clear blood from the line or to verify patency., Pre-procedure (IR) documented in this encounter Care Teams Gas Leak Inspector Relationship Specialty Start Date End Date Gildardo Kelley MD [address] [place] [address] PCP - General 12/15/21 03/05/22 documented as of this encounter
--- OUTSIDE RECORDS SUMMARY | 2024-05-22 00:03 | XMS_ITS | Encounter Summary ---
Author Organization [facility] Address [address] [facility] [place] [address] Care Team Providers Care Franchise Business Consultant Name Role Phone Gildardo Kelley MD Primary Care Provider [phone] Reason for Visit * Reason Comments Transitional Care Encounter Details Date Type Department Care Team (Late st Contact Info) Description 12/15/2021 Transitional Care Transitional Care at [address] [address] Luisa Chua, ground defence officer Social History Tobacco Use Types Packs/Day Years [...] encounter Miscellaneous Notes * Telephone Encounter - Luisa Chua RN - 12/15/2021 4:29 PM CDT RN 48 hour post discharge follow-up contact by telephone: Patient with recent IP discharge from [facility] on 12/14/21. This RN contacted Brent Higginbotham by telephone ([phone]) to complete 48 hour post-discharge follow-up contact for Bridge clinic appointment. 1) How are you feeling? Patient states he feels ok 2) How is your mobility? Patient states he still has some pain/numbness to left arm and leg 3) New concerns or problems? No 4) Have you had to go the ER for any reason? No 5) Any questions about your discharge diagnosis and instructions? No 6) Do you have a follow up appointment made? Patient declined [facility] appt at this time as [facility] Instructed patient to call this RN back if that changes. 7) Do you currently have home health, any questions about home care? No 8) Have you filled all of your RX's? Yes, this RN reviewed with patient which medications were stopped/started. 9) Any questions or concerns that we can help you with? No Brent Higginbotham denied any questions related to diet, medications, or condition at this time. Patient wasencouraged to call this check writer with questions, concerns, barriers to care, and/or additional resources if needed. Patient verbalized understanding and agreement with plan. This RN will continue to provide post- discharge monitoring until patient completes Bridge clinic follow up. Call Duration: 5 min Luisa Chua RN, BSN Contact Printer Dry Film, [facility] Office: [phone] 12/15/2021 documented in this encounter Plan of Treatment Not on file documented as of this encounter Visit Diagnoses Not on filedocumented in this encounter Care Teams Franchise Business Consultant Relationship Specialty Start Date End Date Gildardo Kelley MD [address] [place] [address] PCP - General 12/15/21 03/05/22 documented as of this encounter
--- OUTSIDE RECORDS SUMMARY | 2024-05-22 00:03 | XMS_ITS | Encounter Summary ---
Author Organization [facility] Address [address] [place] [address] Care Team Providers Care Prompt Care Rn Name Role Phone Gildardo Kelley MD Primary Care Provider [phone] Reason for Referral * Radiology Services (Routine) - Closed Specialty Diagnoses / Procedures Referred By Contac t Referred To Contact Interventional Radiology Diagnoses Carotid stenosis, left Carotid occlusion, right Procedures IR CAROTID CEREBRAL ANGIOGRAM Ru Addison MD [address] [place] [address] [facility] [place] [address] Referral ID Status Reason Start Date Expiration Date Visits Re quested Visits Authorized [id number] Closed 12/26/2021 06/24/2022 1 1 Reason for Visit * Reason Onset Date Comments Order 12/24/2021 Encounter Details Date Type Department Care Team (Late st Contact Info) Description 12/24/2021 Telephone [facility] [address] [facility], [place] [id number] Josy Connelly LPN [address] [place] [address] Order Social History Tobacco Use Types Packs/Day Years [...] No 12/14/2021 documented as of this encounter Plan of Treatment Not on file documented as of this encounter Results * IR CAROTID CEREBRAL [...] is here for catheter angiography to . Glue Plant Operator: Jc Addison Diet Clerk(s): Christy Bolivar Vessels: Ultrasound Guided Access of Radial Artery Right Radial Artery Angiogram Left Subclavian Artery Angiogram: Cervical and Cerebral Left Vertebral Artery Angiogram: Cervical and Cerebral Left Common Carotid Artery Angiogram: Cervical and Cerebral Right Common Carotid Artery Angiogram: Cervical and Cerebral Right Subclavian Artery Angiogram: Cervical and Cerebral Anesthesia: Moderate sedation on this adult patient was ordered by the medart operator, administered intravenously in my presence, and monitored by the procedure nurse as an independent trained observer who was present throughout the procedure. The following parameters were monitored: oxygen saturation, heart rate, blood pressure, and response to care. Total physician intra-service sedation time was 27 mins. For details on sedation patient evaluation, please review the evaluation in [facility]. For details on monitored clinical parameters during the intra-service sedation time, please review the procedure nurse documentation in [facility]. Procedural detail: The risks, benefits, and alternatives [...] Following a series of exchanges, a 5 [place]er 11 cm Glidesheath slender was placed in the radial artery. A radial angiogram was performed through the sheath. A spasmolytic cocktail containing 3000u heparin, 2.5mg verapamil, and 200mcg of nitroglycerin was administered. A 5 [place] Island[place] Glidecath Case 2 diagnostic catheter along with [...] He is here for catheter angiography to. Glue Plant Operator: Jc Addison Diet Clerk(s): Christy Bolivar Vessels: Ultrasound Guided Access of Radial Artery Right Radial Artery Angiogram Left Subclavian Artery Angiogram: Cervical and Cerebral Left Vertebral Artery Angiogram: Cervical and Cerebral Left Common Carotid Artery Angiogram: Cervical and Cerebral Right Common Carotid Artery Angiogram: Cervical and Cerebral Right Subclavian Artery Angiogram: Cervical and Cerebral Anesthesia: Moderate sedation on this adult patient was ordered by the medart operator, administered intravenously in my presence, and monitored by theprocedure nurse as an independent trained observer who was present throughout the procedure. The following parameters were monitored: oxygen saturation, heart rate, blood pressure, and response to care. Total physician intra-service sedation time was 27 mins. For details on sedation patient evaluation, please review the evaluation in [facility]. For details onmonitored clinical parameters during the intra-service sedation time, pleasereview the procedure nurse documentation in [facility]. Procedural detail: The risks, benefits, and alternatives [...] needle. Followinga series of exchanges, a 5 [place] Islander 11 cm Glidesheath slender was placed inthe radial artery. A radial angiogram was performed through the sheath. A spasmolytic cocktail containing 3000u heparin, 2.5mg verapamil, [id number] of nitroglycerin was administered. A 5 [place] Islander Glidecath Case 2 diagnostic catheter along with [...] 12:54 PM Ru Addison MD IR ORDERABLES documented in this encounter Visit Diagnoses Diagnosis Carotid stenosis, left- Primary Occlusion and stenosis of carotid artery without mention of cerebral infarction Carotid occlusion, right Occlusion and stenosis of carotid artery without mention of cerebral infarction Pre-procedure lab exam- Primary Pre-procedural laboratory examination Carotid stenosis, left Occlusion and stenosis of carotid artery without mention of cerebral infarction Carotid occlusion, right Occlusion and stenosis of carotid artery without mention of cerebral infarction documented in this encounter Care Teams Prompt Care Rn Relationship Specialty Start Date End Date Gildardo Kelley MD [address] [place] [address] PCP - General 12/15/21 03/05/22 documented as of this encounter
--- OUTSIDE RECORDS SUMMARY | 2024-05-22 00:03 | XMS_ITS | Encounter Summary ---
Author Organization [facility] Address [address] [facility] [place] [address] Care Team Providers Care Director Of Vendor Management Name Role Phone Gildardo Kelley MD Primary Care Provider [phone] Reason for Visit * Reason Onset Date Comments Results 02/05/2022 Encounter Details Date Type Department Care Team (Late st Contact Info) Description 02/05/2022 Telephone [facility] [address] [facility] [place] [id number] Josy Connelly, IRVIN [address] [place] [address] Results Social History Tobacco Use Types Packs/Day Years [...] Telephone Encounter - Josy Connelly LPN - 02/05/2022 1:33 PM CDT Unable to return call d/t no extension was provided. This pt[facility] Val[facility], on 02/02/22. * Telephone Encounter - Audrey Espino MA - 02/05/2022 1:29 PM CDT Ofe calling requesting for the 3 roll angio gram that the patient completed requesting for resultsto be sent to [phone] Valenzuela. CB# to Ofe [phone] documented in this encounter Plan of Treatment Not on file documented as of this encounter Visit Diagnoses Not on filedocumented in this encounter Care Teams Director Of Vendor Management Relationship Specialty Start Date End Date Gildardo Kelley MD [address] [place] [address] PCP - General 12/15/21 03/05/22 documented as of this encounter
--- OUTSIDE RECORDS SUMMARY | 2024-05-22 00:03 | XMS_ITS | Encounter Summary ---
Author Organization [facility] Address [address] [facility] [place] [address] Care Team Providers Care Bottom Wheeler Name Role Phone Gildardo Kelley MD Primary Care Provider [phone] Reason for Visit * Reason Onset Date Comments Results 01/03/2018 Encounter Details Date Type Department Care Team (Late st Contact Info) Description 01/03/2018 Telephone [facility] [address] [place] [address] Ammy Tavarez, COMPANY LABORER-TISSUE TECHNOLOGIST [address] [place] [address] Results Social History Tobacco Use Types Packs/Day Years Used Date Smoking Tobacco: Every Day Cigarettes Smokeless Tobacco: Never Alcohol Use Standard Drinks/Week Comments Yes 0 (1 standard drink = 0.6 oz pur e alcohol) Sex and Gender Information Value Date Recorded Sex Assigned at Not on file Gender Identity Not on file Sexual Orientation Not on file documented as of this encounter Miscellaneous Notes * Telephone Encounter - Ammy Tavarez RN - 01/03/2018 7:52 AM CDT Returned Nan BEAN at [facility] call with results after Dr. Saunders reviewed MRI brain w/wo. Per Dr. Saunders, MRI is stable and pt to continue f/u as scheduled in May 2018. Left [facility] for Nan BEAN to call back with questions. documented in this encounter Plan of Treatment Not on file documented as of this encounter Visit Diagnoses Not on filedocumented in this encounter Care Teams Bottom Wheeler Relationship Specialty Start Date End Date Gildardo Kelley MD [address] [place] [address] PCP - General 02/02/17 12/10/21 documented as of this encounter
--- OUTSIDE RECORDS SUMMARY | 2024-05-22 00:03 | XMS_ITS | Encounter Summary ---
Author Organization [facility] Health Address [facility] [facility] [place] [address] Care Team Providers Care Supercalender Operator Name Role Phone Gildardo Kelley MD Primary Care Provider [phone] Reason for Visit * Reason Onset Date Comments Future Appointment 05/30/2018 Encounter Details Date Type Department Care Team (Late st Contact Info) Description 05/30/2018 Telephone [facility] [address] [place] [address] Francis Saunders MD [address] [place] [address] Future Appointment Social History Tobacco Use Types Packs/Day Years [...] encounter Miscellaneous Notes * Telephone Encounter - Kelly Barahona - 05/30/2018 9:51 AM CST Derian left voicemail message informing patient of 05/31 appointment @ 8:30 and to bring imaging cd. DRY ROOM ATTENDANT documented in this encounter Plan of Treatment Not on file documented as of this encounter Visit Diagnoses Not on filedocumented in this encounter Care Teams Supercalender Operator Relationship Specialty Start Date End Date Gildardo Kelley MD [address] [place] [address] PCP - General 02/02/17 12/10/21 documented as of this encounter
--- OUTSIDE RECORDS SUMMARY | 2024-05-22 00:03 | XMS_ITS | Encounter Summary ---
Author Organization [facility] Address [address] [facility] [place] [address] Care Team Providers Care Shear Operator Helper Name Role Phone Gildardo Kelley MD Primary Care Provider [phone] Encounter Details Date Type Department Care Team (Late st Contact Info) Description 06/01/2017 Orders Only [facility] [address] [place] [address] Francis Saunders MD [address] [facility] [address] [place] [address] Pituitary tumor ; Pituitary lesion (HCC) Social History Tobacco Use Types Packs/Day Years Used Date Smoking Tobacco: Every Day Cigarettes Smokeless Tobacco: Never Alcohol Use Standard Drinks/Week Comments Yes 0 (1 standard drink = 0.6 oz pur e alcohol) Sex and Gender Information Value Date Recorded Sex Assigned at Not on file Gender Identity Not on file Sexual Orientation Not on file documented as of this encounter Plan of Treatment Not on file documented as of this encounter Visit Diagnoses Diagnosis 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
--- OUTSIDE RECORDS SUMMARY | 2024-05-22 00:03 | XMS_ITS | Encounter Summary ---
Author Organization [facility] Address [address] [facility] [place] [address] Care Team Providers Care Animal Keeper Head Name Role Phone Gildardo Kelley MD Primary Care Provider [phone] Reason for Visit * Reason Comments Establish Care Cerebral infraction * Consult, Test & Treat (Routine) - Closed Specialty Diagnoses / Procedures Referred By Contac t Referred To Contact Vascular Surgery Diagnoses Cerebral infarction, unspecified (HCC) [facility] [address] [place] [address] Charles Baumann MD [address] [place] [address] [place] [address] Referral ID Status Reason Start Date Expiration Date Visits Re quested Visits Authorized [id number] Closed 02/16/2022 02/16/2023 1 1 Encounter Details Date Type Department Care Team (Late st Contact Info) Description 03/05/2022 10:15 AM CDT Office Visit [facility] Vascular Surgery [address] [place] [address], [place] [address] Charles Baumann MD [address] [address] Screening for AAA (abdominal aortic aneurysm) (Primary Dx) Social History Tobacco Use Types Packs/Day Years Used Date Smoking Tobacco: Every Day Cigarettes Smokeless Tobacco: Never Tobacco Cessation:Ready to Q uit: Not Asked; Counseling Given: Not Answered Alcohol Use Standard Drinks/Week Comments Not Currently [...] Sign Reading Time Taken Comments Blood Pressure 153/77 03/05/2022 10:25 AM CDT Pulse 64 03/05/2022 10:25 AM CDT Temperature 36.7 ??C (98 ??F) 03/05/2022 10:25 AM CDT Respiratory Rate - - Oxygen Saturation 98% 03/05/2022 10:25 AM CDT Inhaled Oxygen Concentration - - Weight 104 kg (229 lb 4.8 oz) 03/05/2022 10:25 A M CDT Height 177.8 cm (5' 10 ) 03/05/2022 10:25 AM CDT Body Mass Index 32.9 03/05/2022 10:25 AM CDT documented in this encounter Functional [...] No 01/19/2022 documented as of this encounter Patient Instructions * Patient Instructions* Evans Moncada RN - 03/05/2022 11:06 AM CDT Scheduling will contact you to make an appointment for your test. - Abdominal aortic aneurysm screening We will call with the testing results after your scheduled test is complete. Please allow for 3 business days after completion of the scheduled test for the results phone call. To make, change, or cancel an appointment call [phone]. [facility] Vascular Surgery documented in this encounter Progress Notes * Ulises Cano MD - 03/05/2022 10:59 AM CDT Vascular Surgery Clinic Note 03/05/2022 History: Brent Higginbotham is a 66 year old male who presents for L ICA stenosis and R ICA occlusion. Seen in december at [facility] for R sided stroke, identified R ICA occlusion at that time. L side with elevated velocity consistent w/ moderate stenosis 50- 79% and patient was asymptomatic on that side but interventional neurology opted for cerebral angiogram (unknown reason) and no significant stenosis was identified (likely due to compensatory increase in velocity on L ICA from R ICA occlusion. He is now being seen in vascular surgery clinic for L ICA stenosis. Past Medical History: Diagnosis Date ??? Atherosclerosis of coronary artery ??? Chronic obstructive pulmonary disease (COPD) (CMS/HCC) ??? Essential hypertension ??? History of diabetes mellitus ??? AR (myocardial infarction) ([facility]) ??? Sleep apnea Pt states he was [...] on file Food Insecurity: No Food Insecurity ??? Worried About Running Out of Food in the Last Year: Never true ??? Ran Out of Food in the Last Year: Never true Transportation Needs: Not on file Physical Activity: Not on file Stress: Not on file Social Connections: Not on file Intimate Partner Violence: Not on file Housing Stability: Not on file Allergies Allergen Reactions ??? Pioglitazone Nausea and/or Vomiting ??? Hydralazine Nausea and/or Vomiting ??? Lisinopril Other ??? Metformin Diarrhea ??? Simvastatin Other Pt reports hot flashes Current Outpatient Medications: ??? acetaminophen (Tylenol) 325 MG tablet, Take 650 mg by mouth every 4 hours as needed for Fever or Pain Maximum allowable Acetaminophen amount = 4 Grams (4000 mg) / 24 hours., Disp: , Rfl: ??? albuterol HFA (Proventil; Ventolin; Proair) 108 (90 Base) MCG/ACT inhaler, Inhale 2 puffs by mouth 4 times daily as needed for Shortness of Breath, Disp: , Rfl: ??? aspirin EC (Ecotrin) 81 MG tablet, Take 81 mg by mouth once daily, Disp: , Rfl: ??? brinzolamide-brimonidine (Simbrinza) 1-0.2 % ophthalmic suspension, Instill 1 drop into left eye 3 times daily Per patient, he takes prn when he feels pressure in his eye (~2-3 times per week), Disp: , Rfl: ??? cabergoline (Dostinex) 0.5 MG tablet, 1 (one) tablet, Disp: , Rfl: ??? carboxymethylcellulose 1 % ophthalmic gel, INSTILL 1 DROP INTO AFFECTED EYE(S) FOUR TIMES A DAYAS NEEDED FOR DRY EYES, Disp: , Rfl: ??? carvedilol (Coreg) 12.5 MG tablet, 0.5 (one-half) tablet, Disp: , Rfl: ??? empagliflozin (Jardiance) 25 MG tablet, Take 12.5 mg by mouth once daily Take 1/2 tablet (12.5 mg) daily, Disp: , Rfl: ??? ezetimibe (Zetia) 10 MG tablet, 0.5 (one-half) tablet, Disp: , Rfl: ??? fluticasone-salmeterol (Advair/Wixela) 100-50 MCG/ACT inhaler, Inhale 1 puff by mouth 2 times daily Per patient, he gets the medication filled but doesn't take it because of the inconvenience of having to rinse his mouth out after use., Disp: , Rfl: ??? gabapentin (Neurontin) 100 MG capsule, 1 (one) capsule, Disp: , Rfl: ??? hydroCHLOROthiazide (Hydrodiuril) 25 MG tablet, 0.5 (one-half) tablet, Disp: , Rfl: ??? lidocaine (Lidoderm) 5 % patch, Apply 1 patch to skin once daily For back pain (Patient not taking: Reported on 01/19/2022), Disp: , Rfl: ??? nitroGLYCERIN (Nitrostat) 0.3 MG tablet, 1 (one) tablet, Disp: , Rfl: ??? polyvinyl alcohol-povidone PF 1.4-0.6 % ophthalmic solution, INSTILL 1 DROP IN BOTH EYES FOUR TIMES A DAY FOR DRY EYES, Disp: , Rfl: ??? rosuvastatin (Crestor) 40 MG tablet, Take 40 mg by mouth every evening, Disp: , Rfl: ??? ticagrelor (Brilinta) 90 MG tablet, Take 90 mg by mouth 2 times daily, Disp: , Rfl: ??? tiotropium (Spiriva Respimat) 2.5 MCG/ACT inhaler, Inhale 2 puffs by mouth once daily (Patient not taking: Reported on 01/19/2022), Disp: , Rfl: Review of Systems Constitutional: Negative for fevers, chills Eyes: Negative for sore throat, rhinorrhea Respiratory: Negative for shortness of breath, cough Cardiovascular: Negative for chest pain Gastrointestinal: Negative for nausea, vomiting, abdominal pain Genitourinary: Negative for dysuria, hematuria Skin: Negative for rash Hematologic/lymphatic: Negative for easy bruising Musculoskeletal:Negative for joint pain, muscle pain Neurological: Negative for headaches, paresthesias Physical Exam: BP 153/77 (BP SITE: LEFT ARM, BP POSITION: SITTING, BP CUFF SIZE: 12L) Pulse 64 Temp 98 ??F (36.7 ??C) Ht 5' 10 (1.778 m) Wt 229 lb 4.8 oz (104 kg) SpO2 98% Gen: NAD HEENT: EOMI, moist mucous membranes CV: Extremities WWP Pulm: Non-labored breathing on ambient air Abdomen: Soft, non-distended. no tenderness to palpation. Extremities: No BLE edema Skin: WWP Assessment/Plan: Brent Higginbotham is a 66 year old male who has R ICA occlusion s/p stroke in december and L ICA stenosisby velocity criteria but patent without significant stenosis on cerebral angiogram (asymptomatic). -No acute vascular surgery intervention. We will get AAA screening as patient is a long time smoking male who has recently turned 66. Follow up prn if AAA screen negative. Patient has been seen and discussed with attending physician, Dr. Baumann. Ulises Cano MD 03/05/2022 10:59 AM Associated attestation - Charles Baumann MD - 03/05/2022 11:59 AM CDT Patient seen and examined with Resident. Please see note for further details. I confirm history, exam, assessment and plan. In addition I note: Briefly, he is a 66 year old man wit history of recent stroke over the summer. He was seen by neruology who identified right ICA occlusion. Duplex suggested moderate stenosis and they performed an angiogram that looked unremarkable. He is on antiplatelet and smoke cigarettes. I don't think there is much to do from a carotid standpoint. He can remain in surveillance for left side given smoking history and contralateral occlusion. We also ordered screening ultrasound for AAA given age and smoking history. We will get this arranged and call with results. Charles Baumann MD 03/05/2022 11:57 AM documented in this encounter Plan of Treatment Not on file documented as of this encounter Visit Diagnoses Diagnosis Screening for AAA (abdominal aortic aneurysm)- Primary Screening for other and unspecified cardiovascular conditions documented in this encounter Care Teams Animal Keeper Head Relationship Specialty Start Date End Date Gildardo Kelley MD [address] [place] [address] PCP - General 12/15/21 03/05/22 documented as of this encounter
--- OUTSIDE RECORDS SUMMARY | 2024-05-22 00:07 | XMS_ITS | Encounter Summary ---
Author Organization [facility] Address [address] [place] [address]. [place] [address] [place] [address] Care Team Providers Care Chief Dispatcher Service Name Role Phone Unavailable Primary Care Provider Unavailabl e Encounter Details Date Type Department Care Team (Late st Contact Info) Description 01/23/2020 Abstract [facility] [address] [facility] [place] [id number] Dio Yu MD [address] [place] [id number] Social History Tobacco Use Types Packs/Day Years Used Date Smoking Tobacco: Never Assessed Sex and Gender Information Value Date Recorded Sex Assigned at Not on file Legal Sex Male 7:57 AM CDT Gender Identity Not on file Sexual Orientation Not on file documented as of this encounter Plan of Treatment Not on file documented as of this encounter Procedures Procedure Name Priority Date/Time Associated Diagnosis Comments CLOSTRIDIUM DIFFICILE Routine 01/23/2020 12:00 PM CDT COMPREHENSIVE METABOLIC PANEL Routine 01/23/2020 11:05 AM CDT CBC W/DIFF AUTOMATED Routine 01/23/2020 10:18 AM CDT documented in this encounter Results * CLOSTRIDIUM DIFFICILE (01/23/2020 12:00 PM CDT) C DIFFICILE PCR (STOOL) NEGATIVE NR: NEGATIVE [facility] SAMPLE CONSISTENCY WATERY [facility] 01/23/2020 12:0 0 PM CDT 01/23/2020 12:03 PM CDT us Dio Yu MD BODY FLUIDS AND STOOLS ORDERABLE S Final Result [facility] [address] [place] [address] * (ABNORMAL) COMPREHENSIVE METABOLIC PANEL (01/23/2020 11:05 AM CDT) GLUCOSE 119(H) 70 - 99 mg/dL [facility] SODIUM S/P/B 139 136 - 145 mmol/L [facility] POTASSIUM S/P/B 6.3(HH) 3.5 - 5.1 mmol/L [facility] Comment:RICH PALMER COMMENT TIME CALLED 1135 [facility] COMMENT YES [facility] COMMENT YES [facility] CHLORIDE S/P/B 109(H) 100 - 108 mmol/L [facility] CO2 16(L) 21 - 32 mmol/L [facility] BUN 54(H) 7 - 18 mg/dL [facility] CREATININE S/P/B 1.9(H) 0.5 - 1.2 mg/dL [facility] TOTAL PROTEIN S/P/B 8.4(H) 6.4 - 8.2 g/dL [facility] CALCIUM S/P/B 9.9 8.5 - 10.1 mg/dL [facility] BILIRUBIN TOTAL S/P/B 0.2 0.2 - 1.2 mg/dL [facility] ALKALINE PHOSPHATASE S/P/B 121 50 - 136 U/L [facility] ALBUMIN S/P/B 3.8 3.4 - 5.0 g/dL [facility] AST 23 15 - 37 U/L [facility] ALT 57 16 - 60 U/L [facility] PATIENT'S AGE 64 YEARS [facility] EGFR NON-AFR. AMER. 38 ml/min [facility] EGFR AFR. AMER. 46 ml/min [facility] ANION GAP 20 8 - 20 [facility] Comment: ?GFR INTERPRETATION ??According to the [employer], normal results range from 90 to 120 mL/min/1.73 m2. Older people will have lower than normal GFR levels, because GFR decreases with age. Normal value ranges may vary slightly among different laboratories 01/23/2020 11:0 5 AM CDT 01/23/2020 11:05 AM CDT us Dio Yu MD LABORATORY Final Result [facility] [address] [place] [address] * (ABNORMAL) CBC W/DIFF AUTOMATED (01/23/2020 10:18 AM CDT) WBC 8.0 4.5 - 11.0 cmm [facility] RBC 3.5(L) 4.5 - 5.9 M/cumm [facility] HGB 9.9(L) 12.0 - 16.0 g/dL [facility] HCT 30.9(L) 37.0 - 49.0 % [facility] MCV 89.0 80.0 - 100 fL [facility] MCH 28.5 26.0 - 34.0 pg [facility] MCHC 32.0 31.0 - 37.0 g/dL [facility] RDW 15.7(H) 11.6 - 14.8 % [facility] PLT 363 140 - 415 cmm [facility] MPV 9 7 - 12 fl [facility] ABS. NEUTROPHILS 4.63 1.50 - 8.00 x10^3 [facility] ABS. LYMPHOCYTES 2.21 0.21 - 5.42 x10^3 [facility] ABS. MONOCYTES 0.61 0.04 - 1.37 x10^3 [facility] ABS. EOSINOPHILS 0.47 0.00 - 0.68 x10^3 [facility] ABS. BASOPHILS 0.04 0.00 - 0.08 x10^3 [facility] ABS. IMMATURE GRANULOCYTES 0.03 0.00 - 0.06 x10^3 [facility] NEUTROPHILS % 57.9 40.0 - 74.0 % [facility] LYMPHOCYTES % 27.7 14.0 - 46.0 % [facility] MONOCYTES % 7.6 4.0 - 13.0 % [facility] EOSINOPHILS % 5.9 0.0 - 7.0 % [facility] BASOPHILS % 0.5 0.0 - 3.0 % [facility] IMMATURE GRANS % 0.40 0.00 - 0.43 % [facility] MANUAL DIFFERENTIAL NOT INDICATED [facility] WBC MORPHOLOGY NOT INDICATED H [facility] RBC MORPHOLOGY NOT INDICATED H [facility] PLT MORPH. NOT INDICATED [facility] 01/23/2020 10:1 8 AM CDT 01/23/2020 10:28 AM CDT us Dio Yu MD LABORATORY Final Result [facility] [address] [place] [address] documented in this encounter Visit Diagnoses Not on filedocumented in this encounter
--- OUTSIDE RECORDS SUMMARY | 2024-05-22 00:07 | XMS_ITS | Encounter Summary ---
Author Organization [facility] Address [address] [place] [address]. [place] [address] [place] [address] Care Team Providers Care Manager Php Name Role Phone None, Provider Primary Care Provider Unavaila ble Reason for Visit * Reason Comments Fall Sore Throat * Auth/Cert (Routine) Specialty Diagnoses / Procedures Referred By Lina tate Referred To Contact Diagnoses . Procedures . Referral ID Status Reason Start Date Expiration Date Visits Re quested Visits Authorized [id number] 1 1 Encounter Details Date Type Department Care Team (Late st Contact Info) Description 10/11/2022 12:20 PM CDT - 10/11/2022 2:17 PM CDT Emergency [facility] [address] [place] [address] Kaz Humphrey, DO [address] [place] [id number] Fall; Sore Throat Discharge Disposition: Home or Self Care (Routine Discharge) Social History Tobacco Use Types Packs/Day Years Used Date Smoking Tobacco: Every Day Cigarettes Smokeless Tobacco: Never Alcohol Use Standard Drinks/Week Comments Yes 1.7 (1 standard drink = 0.6 oz p ure alcohol) Sex and Gender Information Value Date Recorded Sex Assigned at Not on file Legal Sex Male 7:57 AM CDT Gender Identity Not on file Sexual Orientation Not on file COVID-19 Exposure Response Date Recorded In the last 10 days, have yo u been in contact with someone who was confirmed or suspected to have Coronavirus/COVID-19? No / Unsure 10/11/2022 12:21 PM CDT documented as of this encounter Last Filed Vital Signs Vital Sign Reading Time Taken Comments Blood Pressure 133/55 10/11/2022 2:00 PM CDT Pulse 52 10/11/2022 2:00 PM CDT Temperature 36.7 ??C (98 ??F) 10/11/2022 12:28 PM CDT Respiratory Rate 18 10/11/2022 2:00 PM CDT Oxygen Saturation 98% 10/11/2022 2:00 PM CDT Inhaled Oxygen Concentration - - Weight 103 kg (227 lb) 10/11/2022 12:28 PM CDT Height 180.3 cm (5' 11 ) 10/11/2022 12:28 PM CDT Body Mass Index 31.66 10/11/2022 12:28 PM CDT documented in this encounter Discharge Instructions * Attachments The following attachments cannot be sent through Care Everywhere. * Sore Throat Discharge Instructions, Adult ([place]) documented in this encounter Medications at Time of Discharge acetaminophen (TYLENOL) 325 MG tablet Take 2 tablets (650 mg total) by mouth every 4 (four) hours as needed. albuterol sulfate HFA 108 (90 Base) MCG/ACT inhaler Inhale 2 puffs into the lungs 4 (four) times daily as needed. aspirin EC (ECOTRIN) 81 MG tablet Take 1 tablet (81 mg total) by mouth daily. brinzolamide-alia monidine (SIMBRINZA) 1-0.2 % ophthalmic suspension Place 1 drop into both eyes 3 (three) times daily. cabergoline (DOSTINEX) 0.5 MG tablet Take 1 tablet (0.5 mg total) by mouth twice a week. 01/30/2022 Carboxymethylcel lulose Sodium 1 % Gel Place 1 drop into both eyes as needed. 01/14/2022 empagliflozin (JARDIANCE) 25 MG tablet Take 0.5 tablets (12.5 mg total) by mouth daily. ezetimibe (ZETIA) 10 MG tablet Take 1 tablet (10 mg total) by mouth daily. 12/10/2021 fluticasone-salm eterol (ADVAIR DISKUS) 100-50 MCG/ACT inhaler Inhale 1 puff into the lungs 2 (two) times daily. gabapentin (NEURONTIN) 100 MG capsule Take 1 capsule (100 mg total) by mouth 2 (two) times daily. 02/18/2022 nitroglycerin (NITROSTAT) 0.[address] 1 tablet (0.3 mg total) under the tongue every 5 (five) minutes as needed. 02/06/2022 polyvinyl alcohol 1% - povidone 0.6% (REFRESH PF) 1.4-0.6 % ophthalmic solution Place 1 drop into both eyes as needed. 01/14/2022 rosuvastatin (CRESTOR) 40 MG tablet Take 1 tablet (40 mg total) by mouth every evening. ticagrelor (BRILINTA) 90 mg tablet Take 1 tablet (90 mg total) by mouth 2 (two) times daily. tiotropium (SPIRIVA RESPIMAT) 2.5 MCG/ACT inhaler (SPIRIVA RESPIMAT) Inhale 2 puffs into the lungs daily. amoxicillin (AMOXIL) 500 MG capsule Take 2 capsules (1,000 mg total) by mouth 2 (two) times daily for 10 days. 40 capsule 10/11/2022 10/21/2022 documented as of this encounter ED Notes * Kaz Humphrey DO - 10/11/2022 1:34 PM CDT [facility] Emergency Department Note Chief Complaint Chief Complaint Patient presents with Fall Sore Throat History of Present Illness Mr. Higginbotham presents to the ER with concerns of a sore throat. He states that his throat has been sorefor the past 3 days and is gradually worsening. Mr. Higginbotham complains of pain with swallowing. He denies any fever, chills, nausea, vomiting, cough, chest pain / pressure, headache, or known exposure toill persons. He has used lozenges to help reduce the pain without much relief. Mr. Higginbotham has no additional complaints or concerns today. Medical History ALLERGIES: Review of patient's allergies indicates: No Known Allergies MEDICATIONS: Prior to Admission medications Medication Sig Start Date End Date Taking? Authorizing Provider amoxicillin (AMOXIL) 500 MG capsule Take 2 capsules (1,000 mg total) by mouth 2 (two) times daily for 10 days. 10/11/22 10/21/22 Yes Kaz Humphrey DO cabergoline (DOSTINEX) 0.5 MG tablet Take 1 tablet (0.5 mg total) by mouth twice a week. 01/30/22 Yes Default History Genericprovider Carboxymethylcellulose Sodium 1 % Gel Place 1 drop into both eyes as needed. 01/14/22 Yes Default History Genericprovider ezetimibe (ZETIA) 10 MG tablet Take 1 tablet (10 mg total) by mouth daily. 12/10/21 Yes Default History Genericprovider gabapentin (NEURONTIN) 100 MG capsule Take 1 capsule (100 mg total) by mouth 2 (two) times daily. 02/18/22 Yes Default History Genericprovider nitroglycerin (NITROSTAT) 0.[address] 1 tablet (0.3 mg total) under the tongue every 5 (five) minutes as needed. 02/06/22 Yes Default History Genericprovider polyvinyl alcohol 1% - povidone 0.6% (REFRESH PF) 1.4-0.6 % ophthalmic solution Place 1 drop into both eyes as needed. 01/14/22 Yes Default History Genericprovider acetaminophen (TYLENOL) 325 MG tablet Take 2 tablets (650 mg total) by mouth every 4 (four) hours as needed. Default History Genericprovider albuterol sulfate HFA 108 (90 Base) MCG/ACT inhaler Inhale 2 puffs into the lungs 4 (four) times daily as needed. Default History Genericprovider aspirin EC (ECOTRIN) 81 MG tablet Take 1 tablet (81 mg total) by mouth daily. Default History Genericprovider brinzolamide-brimonidine (SIMBRINZA) 1-0.2 % ophthalmic suspension Place 1 drop into both eyes 3 (three) times daily. Default History Genericprovider empagliflozin (JARDIANCE) 25 MG tablet Take 0.5 tablets (12.5 mg total) by mouth daily. Default History Genericprovider fluticasone-salmeterol (ADVAIR DISKUS) 100-50 MCG/ACT inhaler Inhale 1 puff into the lungs 2 (two) times daily. Default History Genericprovider rosuvastatin (CRESTOR) 40 MG tablet Take 1 tablet (40 mg total) by mouth every evening. Default History Genericprovider ticagrelor (BRILINTA) 90 mg tablet Take 1 tablet (90 mg total) by mouth 2 (two) times daily. Default History Genericprovider tiotropium (SPIRIVA RESPIMAT) 2.5 MCG/ACT inhaler (SPIRIVA RESPIMAT) Inhale 2 puffs into the lungs daily. Default History Genericprovider PAST MEDICAL HISTORY: Past Medical History: Diagnosis Date Cancer (CMS/HCC) COPD (chronic obstructive pulmonary disease) (CMS/HCC) Diabetes mellitus (CMS/HCC) Hypertension ST elevation (STEMI) myocardial infarction of unspecified site (CMS/HCC) 5 total Stroke (CMS/HCC) PAST SURGICAL HISTORY: Past Surgical History: Procedure Laterality Date APPENDECTOMY BACK SURGERY PART REMOVAL COLON W ANASTOMOSIS REPAIR INCISIONAL HERNIA,REDUCIBLE FAMILY HISTORY: No family history on file. SOCIAL HISTORY: Social History Tobacco Use Smoking status: Every Day Packs/day: 2.00 Types: Cigarettes Smokeless tobacco: Never Substance Use Topics Alcohol use: Yes Alcohol/week: 1.7 standard drinks Types: 1 Glasses of wine per week Drug use: Never Review of Systems Review of Systems HENT: Positive for sore throat. All other systems reviewed and are negative. Physical Exam Filed Vitals: 10/11/22 1228 BP: (!) 142/52 Pulse: 60 Resp: 20 Temp: 98 ??F (36.7 ??C) TempSrc: Oral SpO2: 99% Weight: 103 kg (227 lb) Height: 5' 11 (1.803 m) Physical Exam Vitals and nursing note reviewed. Constitutional: General: He is not in acute distress. Appearance: He is not ill-appearing. HENT: Right Ear: Tympanic membrane, ear canal and external ear normal. Left Ear: Tympanic membrane, ear canal and external ear normal. Nose: Nose normal. Mouth/Throat: Mouth: Mucous membranes are moist. Pharynx: Oropharynx is clear. Posterior oropharyngeal erythema present. No oropharyngeal exudate. Eyes: Extraocular Movements: Extraocular movements intact. Conjunctiva/sclera: Conjunctivae normal. Cardiovascular: Rate and Rhythm: Normal rate and regular rhythm. Heart sounds: Normal heart sounds. Pulmonary: Effort: Pulmonary effort is normal. Breath sounds: Normal breath sounds. Musculoskeletal: General: Normal range of motion. Cervical back: Normal range of motion. Lymphadenopathy: Cervical: No cervical adenopathy. Skin: General: Skin is warm. Neurological: General: No focal deficit present. Mental Status: He is alert and oriented to person, place, and time. Mental status is at baseline. Psychiatric: Mood and Affect: Mood normal. Behavior: Behavior normal. Thought Content: Thought content normal. Diagnostic Studies / Procedures ELECTROCARDIOGRAMS: No results found for this visit on 10/11/22. LABORATORY STUDIES: Results for orders placed or performed during the hospital encounter of 10/11/22 CBC W/DIFF AUTOMATED Result Value Ref Range WBC 9.57 4.50 - 11.00 x10'3/uL RBC 4.49 (L) 4.50 - 5.90 x10'6/uL HGB 13.1 12.0 - 16.0 G/DL HCT 38.6 37.0 - 49.0 % MCV 86.0 80.0 - 100.0 FL MCH 29.2 26.0 - 34.0 PG MCHC 33.9 31.0 - 37.0 G/DL RDW 14.6 11.6 - 14.8 % PLT 190 140 - 415 x10'3/uL MPV 8.8 7.0 - 12.0 FL CBC COMMENT AUTOMATED RBC MORPHOLOGY AND PLATELET EVALUATION NORMAL NEUTROPHILS 75.8 (H) 40.0 - 74.0 % LYMPHOCYTES 13.8 (L) 14.0 - 46.0 % MONOCYTES 7.9 4.0 - 13.0 % EOSINOPHILS 1.9 0.0 - 7.0 % BASOPHILS 0.3 0.0 - 3.0 % IMMATURE GRANS 0.3 0.0 - 0.43 % NRBC 0.0 % ABS. NEUTROPHILS TOTAL 7.25 1.69 - 7.81 x10'3/uL ABS. LYMPHOCYTES 1.32 0.21 - 5.42 x10'3/uL ABS. MONOCYTES 0.76 0.04 - 1.37 x10'3/uL ABS. EOSINOPHILS 0.18 0.00 - 0.68 x10'3/uL ABS. BASOPHILS 0.03 0.00 - 0.08 x10'3/uL ABS. IMMATURE GRANULOCYTES 0.03 0.00 - 0.06 x10'3/uL ABS. NUCLEATED RBC'S 0.00 0.00 x10'3/uL COMPREHENSIVE METABOLIC PANEL Result Value Ref Range GLUCOSE 152 (H) 70 - 99 MG/DL BUN 31 (H) 7 - 18 MG/DL CREATININE S/P/B 1.46 (H) 0.50 - 1.20 MG/DL SODIUM S/P/B 135 (L) 136 - 145 MMOL/L POTASSIUM S/P/B 4.6 3.5 - 5.1 MMOL/L CHLORIDE S/P/B 104 100 - 108 MMOL/L CO2 19.5 (L) 21.0 - 32.0 MMOL/L CALCIUM S/P/B 8.7 8.5 - 10.1 MG/DL BILIRUBIN TOTAL S/P/B 0.5 0.2 - 1.2 MG/DL TOTAL PROTEIN S/P/B 7.0 6.4 - 8.2 G/DL ALBUMIN S/P/B 3.4 3.4 - 5.0 G/DL AST 20 15 - 37 U/L ALT 41 16 - 60 U/L ALKALINE PHOSPHATASE S/P/B 82 50 - 136 U/L ANION GAP 11.5 5.0 - 15.0 MMOL/L BUN CREATININE RATIO 21.2 6 - 26 A/G RATIO 0.9 (L) 1.0 - 2.5 RATIO GFR ESTIMATE 53 (L) >90 ML/MIN/1.73 M2 INFLUENZA A & B Specimen: NASOPHARYNGEAL SWAB; NASAL Result Value Ref Range Specimen Type NASOPHARYNX INFLUENZA A NEGATIVE NEGATIVE INFLUENZA B NEGATIVE NEGATIVE RAPID STREP A Specimen: THROAT Result Value Ref Range Specimen Type THROAT RAPID STREP TEST NEGATIVE NEGATIVE IMAGING STUDIES No orders to display ED Course / Medical Decision Making Medical Decision Making VSS. Non toxic. No distress. Physical exam noteworthy for diffuse erythema of posterior oropharynx.No asymmetry. No mass or other abnormal anatomy. Reassuring labs. Ceftriaxone 1 g IV administered in ER. Rx for amoxicillin issued with instructions. Increase fluid intake. Tylenol and ibuprofen advised for pain. Return to ER for any sudden change in condition. He agrees. Amount and/or Complexity of Data Reviewed Independent Historian: spouse Labs: ordered. Risk OTC drugs. Prescription drug management. Medications sodium chloride 0.9% bolus infusion 500 mL (500 mLs Intravenous New Bag 10/11/22 1308) cefTRIAXone (ROCEPHIN) 1 g in sterile water 10 mL IV (has no administration in time range) ketorolac (TORADOL) injection 30 mg (30 mg Intravenous Given 10/11/22 1308) Clinical Impression Pharyngitis (Primary) Current Discharge Medication List START taking these medications Details amoxicillin (AMOXIL) 500 MG capsule Take 2 capsules (1,000 mg total) by mouth 2 (two) times daily for 10 days. Qty: 40 capsule, Refills: 0 Class: Eprescribe Pharmacy: [facility]/pharmacy #[id number] [place] [address] Ranjit FULLER (Ph #: [phone]) Disposition: Discharge Follow-Up: [facility] [address] [place] [address] If symptoms worsen KAZ HUMPHREY DO 10/11/2022 Kaz Humphrey DO 10/11/22 1345 * Paty Fong RN - 10/11/2022 12:27 PM CDT Pt fell on the left side getting up from his chair on Wednesday and ever since then has been having right sided throat pain. documented in this encounter Plan of Treatment Not on file documented as of this encounter Procedures Procedure Name Priority Date/Time Associated Diagnosis Comments RAPID STREP A STAT 10/11/2022 12:56 PM CDT INFLUENZA A & B STAT 10/11/2022 12:56 PM CDT COMPREHENSIVE METABOLIC PANEL STAT 10/11/2022 12:54 PM CDT CBC W/DIFF AUTOMATED STAT 10/11/2022 12:54 PM CDT documented in this encounter Results * RAPID STREP A (10/11/2022 12:56 PM CDT) SPECIMEN TYPE THROAT 10/11/2022 12:57 PM CDT [facility] RAPID STREP TEST NEGATIVE NEGATIVE 10/11/2022 1:27 PM CDT [facility] STRUCTURE OF ANTERIOR PORTION OF NECK / Unknown 10/11/2022 12:56 PM CDT Kaz Humphrey DO MICROBIOLOGY - GENERAL ORDERAB LES Final Result [facility] [address] [place] [address], [place] * INFLUENZA A & B (10/11/2022 12:56 PM CDT) SPECIMEN TYPE NASOPHARYNX 10/11/2022 12:57 PM CDT [facility] INFLUENZA A NEGATIVE NEGATIVE 10/11/2022 1:37 PM CDT [facility] INFLUENZA B NEGATIVE NEGATIVE 10/11/2022 1:37 PM CDT [facility] NASAL NASOPHARYNGEAL SWAB / Unknown 10/11/2022 12:56 PM CDT us Kaz Humphrey DO MICROBIOLOGY - GENERAL ORDERAB LES Final Result [facility] [address] [place] [address], * (ABNORMAL) COMPREHENSIVE METABOLIC PANEL (10/11/2022 12:54 PM CDT) GLUCOSE 152(H) 70 - 99 MG/DL 10/11/2022 1:34 PM CDT [facility] BUN 31(H) 7 - 18 MG/DL 10/11/2022 1:34 PM CDT [facility] CREATININE S/P/B 1.46(H) 0.50 - 1.20 MG/DL 10/11/2022 1:34 PM CDT [facility] SODIUM S/P/B 135(L) 136 - 145 MMOL/L 10/11/2022 1:34 PM CDT [facility] POTASSIUM S/P/B 4.6 3.5 - 5.1 MMOL/L 10/11/2022 1:34 PM CDT [facility] CHLORIDE S/P/B 104 100 - 108 MMOL/L 10/11/2022 1:34 PM CDT [facility] CO2 19.5(L) 21.0 - 32.0 MMOL/L 10/11/2022 1:34 PM CDT [facility] CALCIUM S/P/B 8.7 8.5 - 10.1 MG/DL 10/11/2022 1:34 PM CDT [facility] BILIRUBIN TOTAL S/P/B 0.5 0.2 - 1.2 MG/DL 10/11/2022 1:34 PM CDT [facility] Comment: THIS ASSAY IS NOT RECOMMENDED FOR PATIENTS UNDERGOING TREATMENT WITH ELTROMBOPAG DUE TO THE POTENTIAL FOR FALSELY ELEVATED RESULTS. TOTAL PROTEIN S/P/B 7.0 6.4 - 8.2 G/DL 10/11/2022 1:34 PM CDT [facility] ALBUMIN S/P/B 3.4 3.4 - 5.0 G/DL 10/11/2022 1:34 PM CDT [facility] AST 20 15 - 37 U/L 10/11/2022 1:34 PM CDT [facility] ALT 41 16 - 60 U/L 10/11/2022 1:34 PM CDT [facility] ALKALINE PHOSPHATASE S/P/B 82 50 - 136 U/L 10/11/2022 1:34 PM CDT [facility] ANION GAP 11.5 5.0 - 15.0 MMOL/L 10/11/2022 1:34 PM CDT [facility] BUN CREATININE RATIO 21.2 6 - 26 10/11/2022 1:34 PM CDT [facility] A/G RATIO 0.9(L) 1.0 - 2.5 RATIO 10/11/2022 1:34 PM CDT [facility] GFR ESTIMATE 53(L) >90 ML/MIN/1.7 3 M2 10/11/2022 1:34 PM CDT [facility] Comment: NOTE: eGFR is not calculated for patients <18 years of age. This is an estimated GFR calculation using the new CKD EPI creatinine equation without race and so does not require a correction factor for race. This estimated GFR should not be used for calculating drug doses. 10/11/2022 12:5 4 PM CDT Kaz M Humphrey DO LABORATORY Final Result [facility] [address] [place] [address], [place] * (ABNORMAL) CBC W/DIFF AUTOMATED (10/11/2022 12:54 PM CDT) [facility] WBC 9.57 4.50 - 11.00 x10'3/uL 10/11/2022 1:17 PM CDT [facility] RBC 4.49(L) 4.50 - 5.90 x10'6/uL 10/11/2022 1:17 PM CDT [facility] HGB 13.1 12.0 - 16.0 G/DL 10/11/2022 1:17 PM CDT [facility] HCT 38.6 37.0 - 49.0 % 10/11/2022 1:17 PM CDT [facility] MCV 86.0 80.0 - 100.0 FL 10/11/2022 1:17 PM CDT [facility] MCH 29.2 26.0 - 34.0 PG 10/11/2022 1:17 PM CDT [facility] MCHC 33.9 31.0 - 37.0 G/DL 10/11/2022 1:17 PM CDT [facility] RDW 14.6 11.6 - 14.8 % 10/11/2022 1:17 PM CDT [facility] PLT 190 140 - 415 x10'3/uL 10/11/2022 1:17 PM CDT [facility] MPV 8.8 7.0 - 12.0 FL 10/11/2022 1:17 PM CDT [facility] CBC COMMENT AUTOMATED RBC MORPHOLOGY AND PLATELET EVALUATION NORMAL 10/11/2022 1:17 PM CDT [facility] NEUTROPHILS % 75.8(H) 40.0 - 74.0 % 10/11/2022 1:17 PM CDT [facility] LYMPHOCYTES % 13.8(L) 14.0 - 46.0 % 10/11/2022 1:17 PM CDT [facility] MONOCYTES % 7.9 4.0 - 13.0 % 10/11/2022 1:17 PM CDT [facility] EOSINOPHILS 1.9 0.0 - 7.0 % 10/11/2022 1:17 PM CDT [facility] BASOPHILS 0.3 0.0 - 3.0 % 10/11/2022 1:17 PM CDT [facility] IMMATURE GRANS % 0.3 0.0 - 0.43 % 10/11/2022 1:17 PM CDT [facility] NRBC 0.0 % 10/11/2022 1:17 PM CDT [facility] ABS. NEUTROPHILS TOTAL 7.25 1.69 - 7.81 x10'3/uL 10/11/2022 1:17 PM CDT [facility] ABS. LYMPHOCYTES 1.32 0.21 - 5.42 x10'3/uL 10/11/2022 1:17 PM CDT [facility] ABS. MONOCYTES 0.76 0.04 - 1.37 x10'3/uL 10/11/2022 1:17 PM CDT [facility] ABS. EOSINOPHILS 0.18 0.00 - 0.68 x10'3/uL 10/11/2022 1:17 PM CDT [facility] ABS. BASOPHILS 0.03 0.00 - 0.08 x10'3/uL 10/11/2022 1:17 PM CDT [facility] ABS. IMMATURE GRANULOCYTES 0.03 0.00 - 0.06 x10'3/uL 10/11/2022 1:17 PM CDT [facility] ABS. NUCLEATED RBC'S 0.00 0.00 x10'3/uL 10/11/2022 1:17 PM CDT [facility] 10/11/2022 12:5 4 PM CDT us Kaz Humphrey DO LABORATORY Final Result [facility] [address] [place] [address], [place] documented in this encounter Visit Diagnoses Diagnosis Pharyngitis- Primary Acute pharyngitis documented in this encounter Administered Medications Inactive Administered Medications - up to 3 most recent administrations Medication Order MAR Action Action Date Dose Rate Site cefTRIAXone (ROCEPHIN) 1 g in sterile water 10 mL IV 1 g, Intravenous, at 120 mL/hr, Once, 1 dose, On 10/11/22 at 1345 Given 10/11/2022 2:02 PM CDT 1 g 120 mL/hr ketorolac (TORADOL) injection 30 mg 30 mg, Intravenous, Once, 1 dose, On 10/11/22 at 1300, For IV administration, give over 15 seconds. Given 10/11/2022 1:08 PM CDT 30 mg sodium chloride 0.9% bolus infusion 500 mL 500 mL, Intravenous, Administer over 60 Minutes, Once, 1 dose, On 10/11/22 at 1300 New Bag 10/11/2022 1:08 PM CDT 500 mLs documented in this encounter Active and Recently Administered Medications Times are shown in CDT. Scheduled Medication Order 10/09/2022 10/10/2022 10/11/2022 cefTRIAXone (ROCEPHIN) 1 g in sterile water 10 mL IV (COMPLETED) 1 g, Intravenous, at 120 mL/hr, Once, 1 dose, On 10/11/22 at 1345 1402 (Given - Provid er: Paty Fong RN) ketorolac (TORADOL) injection 30 mg (COMPLETED) 30 mg, Intravenous, Once, 1 dose, On 10/11/22 at 1300, For IV administration, give over 15 seconds. 1308 (Given - Provid er: Paty Fong RN) sodium chloride 0.9% bolus infusion 500 mL (COMPLETED) 500 mL, Intravenous, Administer over 60 Minutes, Once, 1 dose, On 10/11/22 at 1300 1308 (New Bag - Prov ider: Paty Fong RN)1346 (Infusion Stop Time - Provider: Paty Fong RN) documented in this encounter Care Teams Manager Php Relationship Specialty Start Date End Date None, Provider, PCP - General 10/10/21 documented as of this encounter
--- OUTSIDE RECORDS SUMMARY | 2024-05-22 00:07 | XMS_ITS | Encounter Summary ---
Author Organization [facility] Address [address] [place] [address]. [place], [place] [id number] [place] [id number] Care Team Providers Care Geologic Technician Name Role Phone None, Provider Primary Care Provider Unavaila ble Encounter Details Date Type Department Care Team (Latest Contact Info) Description 10/11/2022 Travel Social History Tobacco Use Types Packs/Day Years [...] PM CDT documented as of this encounter Plan of Treatment Not on file documented as of this encounter Visit Diagnoses Not on filedocumented in this encounter Care Teams Geologic Technician Relationship Specialty Start Date End Date None, Provider, PCP - General 10/10/21 documented as of this encounter
--- OUTSIDE RECORDS SUMMARY | 2024-05-22 00:07 | XMS_ITS | Clinical Summary ---
Author Organization [facility] Address [address] [place] [address]. [place] [address] [place] [address] Care Team Providers Care Marine Chronometer Assembler Name Role Phone None, Provider MD Primary Care Provider Unavaila ble Allergies No known active allergies Medications acetaminophen (TYLENOL) 325 MG tablet Take 2 tablets (650 mg total) by mouth every 4 (four) hours as needed. Active albuterol sulfate HFA 108 (90 Base) MCG/ACT inhaler Inhale 2 puffs into the lungs 4 (four) times daily as needed. Active aspirin EC (ECOTRIN) 81 MG tablet Take 1 tablet (81 mg total) by mouth daily. Active brinzolamide-br imonidine (SIMBRINZA) 1-0.2 % ophthalmic suspension Place 1 drop into both eyes 3 (three) times daily. Active cabergoline (DOSTINEX) 0.5 MG tablet Take 1 tablet (0.5 mg total) by mouth twice a week. 01/30/2022 Active Carboxymethylce llulose Sodium 1 % Gel Place 1 drop into both eyes as needed. 01/14/2022 Active empagliflozin (JARDIANCE) 25 MG tablet Take 0.5 tablets (12.5 mg total) by mouth daily. Active ezetimibe (ZETIA) 10 MG tablet Take 1 tablet (10 mg total) by mouth daily. 12/10/2021 Active fluticasone-maynor meterol (ADVAIR DISKUS) 100-50 MCG/ACT inhaler Inhale 1 puff into the lungs 2 (two) times daily. Active gabapentin (NEURONTIN) 100 MG capsule Take 1 capsule (100 mg total) by mouth 2 (two) times daily. 02/18/2022 Active nitroglycerin (NITROSTAT) 0.[address] 1 tablet (0.3 mg total) under the tongue every 5 (five) minutes as needed. 02/06/2022 Active polyvinyl alcohol 1% - povidone 0.6% (REFRESH PF) 1.4-0.6 % ophthalmic solution Place 1 drop into both eyes as needed. 01/14/2022 Active rosuvastatin (CRESTOR) 40 MG tablet Take 1 tablet (40 mg total) by mouth every evening. Active ticagrelor (BRILINTA) 90 mg tablet Take 1 tablet (90 mg total) by mouth 2 (two) times daily. Active tiotropium (SPIRIVA RESPIMAT) 2.5 MCG/ACT inhaler (SPIRIVA RESPIMAT) Inhale 2 puffs into the lungs daily. Active Social History Tobacco Use Types Packs/Day Years [...] Sign Reading Time Taken Comments Blood Pressure 155/65 10/12/2022 3:21 AM CDT Pulse 73 10/12/2022 3:21 AM CDT Temperature 37.3 ??C (99.1 ??F) 10/12/2022 3:21 AM CD T Respiratory Rate 20 10/12/2022 3:21 AM CDT Oxygen Saturation 94% 10/12/2022 3:21 AM CDT Inhaled Oxygen Concentration - - Weight 103 kg (227 lb) 10/12/2022 3:21 AM CDT Height 180.3 cm (5' 11 ) 10/12/2022 3:21 AM CDT Body Mass Index 31.66 10/12/2022 3:21 AM CDT Plan of Treatment Health Maintenance Due Date Last Done Comments Colorectal Cancer Screening Colonoscopy (10 Years) 1956 Hepatitis C 1974 Pneumococcal Vaccine: 65+ Years (2 of 2 - PCV) 08/16/2004 08/17/2003 Zoster Vaccines (1 of 2) 2006 Annual Medicare Wellness Visit 2021 COVID-19 Vaccine ( - 2023-2 5 season) 2024 Influenza Adult (#1) 2024 05/10/2006 DTaP, Tdap and Td Vaccines ( 2 - Td or Tdap) 07/23/2024 07/23/2014, 12/09/2003 RSV Immunization or 60+ Years (1 - 1-dose 75+ series) 07/14/2031 Meningococcal Vaccine Aged Out No idania claudy eligible based on patient's age to complete this topic RSV Immunizations Under 20 Months Aged Out No longer eligible b ased on patient's age to complete this topic Insurance [facility] MEDICARE Care Teams Marine Chronometer Assembler Relationship Specialty Start Date End Date None, Provider, PCP - General 10/10/21
--- OUTSIDE RECORDS SUMMARY | 2024-05-22 00:07 | XMS_ITS | Encounter Summary ---
Author Organization [facility] Address [address] [place] [address]. [place] [address] [place] [address] Care Team Providers Care Community [facility] Specialist Name Role Phone None, Provider Primary Care Provider Unavaila ble Reason for Referral * Imaging (Emergency) - Closed Specialty Diagnoses / Procedures Referred By Lina tate Referred To Contact RADIOLOGY Procedures CT SOFT TISSUE NECK W CON Kaz Humphrey DO [address] [place] [address] Phone: tel: fax: Referral ID Status Reason Start Date Expiration Date Visits Re quested Visits Authorized [id number] Closed 10/12/2022 10/13/2023 1 1 Reason for Visit * Reason Comments Sore Throat * Auth/Cert (Routine) Specialty Diagnoses / Procedures Referred By Lina tate Referred To Contact Diagnoses . Procedures . Referral ID Status Reason Start Date Expiration Date Visits Re quested Visits Authorized [id number] 1 1 Encounter Details Date Type Department Care Team (Late st Contact Info) Description 10/12/2022 3:16 AM CDT - 10/12/2022 5:09 AM CDT Emergency [facility] Emergency Services [address] [place] [address] Kaz Humphrey DO [address] [place] [address] Sore Throat Discharge Disposition: Left Against Medical Advice Social History Tobacco Use Types Packs/Day Years [...] suspected to have Coronavirus/COVID-19? No / Unsure 10/12/2022 3:16 AM CDT documented as of this encounter Last [...] Mass Index 31.66 10/12/2022 3:21 AM CDT documented in this encounter Discharge Instructions * Attachments The following attachments cannot be sent through Care Everywhere. * Peritonsillar Abscess Discharge Instructions, Adult (Japanese) documented in this encounter Medications at Time [...] for 10 days. 40 capsule 10/11/2022 10/21/2022 HYDROcodone-acet aminophen (NORCO) 5-325 MG tabletIndication s:Acute Pain < 3 Day Supply Take 1 tablet by mouth every 6 (six) hours as needed for Pain. Indications: Acute Pain < 3 Day Supply 12 tablet 10/12/2022 10/15/2022 documented as of this encounter ED Notes * Letty Carmona RN - 10/12/2022 5:00 AM CDT [facility], informed patient that they have no beds at this time. Pt wants to sign out AMA and follow up with his general practitioner tomorrow. Pt was informed on the importance of following up as soon as possible today. * Kaz Humphrey DO - 10/12/2022 3:36 AM CDT [facility] Emergency Department Note Chief Complaint Chief Complaint Patient presents with Sore Throat History of Present Illness Mr. Higginbotham returns to the ER complaining of a sore throat. He was seen yesterday (discharged from this ER at 1417 on 11 OCT 2022) for the same complaint and had negative rapid strep, influenza and COVID-19 testing. In addition, his CBC and CMP were unremarkable. He was given ceftriaxone 1 g IV and a Rx for amoxicillin. Mr. Higginbotham states that he could not sleep tonight and he also reports that he is not drinking fluids due to the pain. He returns to the ER requesting pain management for his sore throat. He has not taken any acetaminophen or ibuprofen. When asked if his sore throat is worse or the same as when he was previously seen, he replies that it is the same. Mr. Higginbotham denies any additional complaints or concerns. Medical History ALLERGIES: Review of patient's allergies indicates: No Known Allergies MEDICATIONS: Prior to Admission medications Medication Sig Start Date End Date Taking? Authorizing Provider HYDROcodone-acetaminophen (NORCO) 5-325 MG tablet Take 1 tablet by mouth every 6 (six) hours as needed for Pain. Indications: Acute Pain < 3 Day Supply 10/12/22 10/15/22 Yes Kaz Humphrey, DO acetaminophen (TYLENOL) 325 MG tablet Take 2 tablets (650 mg total) by mouth every 4 (four) hours as needed. Default History Genericprovider albuterol sulfate HFA 108 (90 Base) MCG/ACT inhaler Inhale 2 puffs into the lungs 4 (four) times daily as needed. Default History Genericprovider amoxicillin (AMOXIL) 500 MG capsule Take 2 capsules (1,000 mg total) by mouth 2 (two) times daily for 10 days. 10/11/22 10/21/22 Kaz Humphrey, DO aspirin EC (ECOTRIN) 81 MG tablet Take 1 tablet (81 mg total) by mouth daily. Default History Genericprovider brinzolamide-brimonidine (SIMBRINZA) 1-0.2 % ophthalmic suspension Place 1 drop into both eyes 3 (three) times daily. Default History Genericprovider cabergoline (DOSTINEX) 0.5 MG tablet Take 1 tablet (0.5 mg total) by mouth twice a week. 01/30/22 Default History Genericprovider Carboxymethylcellulose Sodium 1 % Gel Place 1 drop into both eyes as needed. 01/14/22 Default HistoryGenericprovider empagliflozin (JARDIANCE) 25 MG tablet Take 0.5 tablets (12.5 mg total) by mouth daily. Default History Genericprovider ezetimibe (ZETIA) 10 MG tablet Take 1 tablet (10 mg total) by mouth daily. 12/10/21 Default History Genericprovider fluticasone-salmeterol (ADVAIR DISKUS) 100-50 MCG/ACT inhaler Inhale 1 puff into the lungs 2 (two) times daily. Default History Genericprovider gabapentin (NEURONTIN) 100 MG capsule Take 1 capsule (100 mg total) by mouth 2 (two) times daily. 02/18/22 Default History Genericprovider nitroglycerin (NITROSTAT) 0.[address] 1 tablet (0.3 mg total) under the tongue every 5 (five) minutes as needed. 02/06/22 Default History Genericprovider polyvinyl alcohol 1% - povidone 0.6% (REFRESH PF) 1.4-0.6 % ophthalmic solution Place 1 drop into both eyes as needed. 01/14/22 Default History Genericprovider rosuvastatin (CRESTOR) 40 MG [...] and are negative. Physical Exam Filed Vitals: 10/12/22 0321 BP: (!) 155/65 Pulse: 73 Resp: 20 Temp: 99.1 ??F (37.3 ??C) TempSrc: Temporal SpO2: 94% Weight: 103 kg (227 lb) Height: 5' 11 (1.803 m) Physical Exam Vitals and nursing note reviewed. Constitutional: General: He is not in acute distress. Appearance: He is not ill-appearing or toxic-appearing. HENT: Head: Normocephalic and atraumatic. Right Ear: Tympanic membrane, ear canal and external ear normal. Left Ear: Tympanic membrane, ear canal and external ear normal. Nose: Nose normal. Mouth/Throat: Mouth: Mucous membranes are moist. Pharynx: Posterior oropharyngeal erythema present. Eyes: Extraocular Movements: Extraocular movements intact. Conjunctiva/sclera: Conjunctivae normal. Cardiovascular: Rate and Rhythm: Normal rate. Heart sounds: Normal heart sounds. Pulmonary: Effort: Pulmonary effort is normal. Breath sounds: Normal breath sounds. Musculoskeletal: General: Normal range of motion. Cervical back: Normal range of motion. No rigidity or tenderness. Lymphadenopathy: Cervical: No cervical adenopathy. Skin: General: Skin is warm. Neurological: Mental Status: He is alert. Psychiatric: Mood and Affect: Mood normal. Behavior: Behavior normal. Thought Content: Thought content normal. Diagnostic Studies / Procedures ELECTROCARDIOGRAMS: No results found for this visit on 10/12/22. LABORATORY STUDIES: Results for orders placed or performed during the hospital encounter of 10/12/22 COMPREHENSIVE METABOLIC PANEL Result Value Ref Range GLUCOSE 161 (H) 70 - 99 MG/DL BUN 29 (H) 7 - 18 MG/DL CREATININE S/P/B 1.52 (H) 0.50 - 1.20 MG/DL SODIUM S/P/B 132 (L) 136 - 145 MMOL/L POTASSIUM S/P/B 4.6 3.5 - 5.1 MMOL/L CHLORIDE S/P/B 101 100 - 108 MMOL/L CO2 21.2 21.0 - 32.0 MMOL/L CALCIUM S/P/B 8.9 8.5 - 10.1 MG/DL BILIRUBIN TOTAL S/P/B 0.5 0.2 - 1.2 MG/DL TOTAL PROTEIN S/P/B 7.5 6.4 - 8.2 G/DL ALBUMIN S/P/B 3.4 3.4 - 5.0 G/DL AST 14 (L) 15 - 37 U/L ALT 31 16 - 60 U/L ALKALINE PHOSPHATASE S/P/B 93 50 - 136 U/L ANION GAP 9.8 5.0 - 15.0 MMOL/L BUN CREATININE RATIO 19.1 6 - 26 A/G RATIO 0.8 (L) 1.0 - 2.5 RATIO GFR ESTIMATE 50 (L) >90 ML/MIN/1.73 M2 CBC W/DIFF AUTOMATED Result Value Ref Range WBC 13.00 (H) 4.50 - 11.00 x10'3/uL RBC 4.51 4.50 - 5.90 x10'6/uL HGB 13.3 12.0 - 16.0 G/DL HCT 39.0 37.0 - 49.0 % MCV 86.5 80.0 - 100.0 FL MCH 29.5 26.0 - 34.0 PG MCHC 34.1 31.0 - 37.0 G/DL RDW 14.6 11.6 - 14.8 % PLT 186 140 - 415 x10'3/uL MPV 8.7 7.0 - 12.0 FL CBC COMMENT AUTOMATED RBC MORPHOLOGY AND PLATELET EVALUATION NORMAL NEUTROPHILS 84.9 (H) 40.0 - 74.0 % LYMPHOCYTES 6.3 (L) 14.0 - 46.0 % MONOCYTES 7.0 4.0 - 13.0 % EOSINOPHILS 1.2 0.0 - 7.0 % BASOPHILS 0.2 0.0 - 3.0 % IMMATURE GRANS 0.4 0.0 - 0.43 % NRBC 0.0 % ABS. NEUTROPHILS TOTAL 11.04 (H) 1.69 - 7.81 x10'3/uL ABS. LYMPHOCYTES 0.82 0.21 - 5.42 x10'3/uL ABS. MONOCYTES 0.91 0.04 - 1.37 x10'3/uL ABS. EOSINOPHILS 0.15 0.00 - 0.68 x10'3/uL ABS. BASOPHILS 0.03 0.00 - 0.08 x10'3/uL ABS. IMMATURE GRANULOCYTES 0.05 0.00 - 0.06 x10'3/uL ABS. NUCLEATED RBC'S 0.00 0.00 x10'3/uL Monospot Result Value Ref Range MONO TEST NEGATIVE NEGATIVE IMAGING STUDIES CT SOFT TISSUE NECK W CON Final Result by User, [id number] (10/12 428) Examination: CT SOFT TISSUE NECK W CON, 10/12/2022 4:19 AM. Technique: Computed tomographic images of the soft tissues of the neck were obtained after the administration of 95 mL of Isovue 370 injected through the right forearm IV, without evidence of an adverse reaction. Additional coronal and sagittal reformatted images were generated at a separate workstation. A dose lowering technique was used for this procedure, which may include, but is not limited to, dose reduction technique, automated exposure control, the use of iterative reconstruction, and ALARA (As Low As Reasonably Achievable) / Image Gently techniques. Clinical history: Sore throat, difficulty swallowing Comparison: None available Findings: There is a 2.7 x 1.2 x 0.8 cm right palatine peritonsillar collection (best seen on series 6 image 65, series 4 image 51, series 2 image 51). There is mild to moderate right aryepiglottic fold thickening. This contributes to effacement of the right piriform sinus. Mild right parapharyngeal soft tissue thickening. No cervical chain adenopathy. The thyroid appears normal. The lung apices are well aerated. Chronic appearing obstruction and long segment occlusion of the proximal right internal carotid artery (best seen on series 2 image 55, series 4 image 60). Probable distal reconstitution of flow involving the cavernous portion of the right internal carotid artery. Focal encephalomalacia involving the right temporal occipital lobe region (best seen on series 2 image 5). 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 Incidental positive remodeling of the sella with lucency extending along the margin of the left cavernous sinus (best seen on series 4 image 51, series 6 image 69). IMPRESSION: 1. Right palatine peritonsillar collection/abscess. 2. Chronic appearing obstruction and long segment occlusion of the proximal right internal carotid artery. Probable distal reconstitution of flow involving the cavernous portion of the right internal carotid artery. Nonemergent CTA head and neck examination and/or MRA head and neck could be beneficial for further characterization. 3. Incidental positive remodeling of the sella with lucency extending along the margin of the left cavernous sinus. Findings could be seen in the setting of a pituitary adenoma in the appropriate clinical setting. If warranted clinically, MRI brain with contrast and pituitary protocol could be beneficial for further characterization. 4. Focal encephalomalacia involving the right temporal occipital lobe region. Ordered By: KAZ HUMPHREY Interpreted By: Deonte Mckeon MD, 10/12/2022 4:19 AM ED Course / Medical Decision Making Medical Decision Making VSS. Non toxic. No distress. Appears uncomfortable. Physical exam noteworthy for diffuse erythema of posterior oropharynx. No asymmetry. No mass or other abnormal anatomy. Ketorolac 30 mg IV + morphine 4 mg IV + ondansetron 4 mg IV + NS 1 L IV administered while awaiting CT imaging results. CT imaging shows right peritonsilar abscess. Mr. Higginbotham advised of need for transfer for ENT evaluation and definitive care. He requests only to be transferred to [facility] in [place], [place]. Transfer initiated, however no bed availability. Therefore Mr. Higginbotham desires to go home AMA and he will contact his [place] PCP in the morning. I advised him to be transferred to a different facility and he declined. Jammie-medrol 125 mg IV administered and pain medication issued. Amount and/or Complexity of Data Reviewed Independent Historian: spouse Labs: ordered. Radiology: ordered. Decision-making details documented in ED Course. Medications sodium chloride 0.9% bolus infusion 1,000 mL (1,000 mLs Intravenous New Bag 10/12/22421) methylPREDNISolone sodium succinate (SOLU-Medrol) injection 125 mg (has no administration in time range) HYDROcodone-acetaminophen (NORCO) 5-325 MG tablet 2 tablet (has no administration in time range) morphine injection 4 mg (4 mg Intravenous Given 10/12/22421) ondansetron (ZOFRAN) injection 4 mg (4 mg Intravenous Given 10/12/22421) ketorolac (TORADOL) injection 30 mg (30 mg Intravenous Given 10/12/22421) iopamidol (ISOVUE-370) 76 % injection 95 mL (95 mLs Intravenous Given 10/12/22407) Clinical Impression Peritonsillar abscess (Primary) Current Discharge Medication List START taking these medications Details HYDROcodone-acetaminophen (NORCO) 5-325 MG tablet Take 1 tablet by mouth every 6 (six) hours as needed for Pain. Indications: Acute Pain < 3 Day Supply Qty: 12 tablet, Refills: 0 Class: Eprescribe Pharmacy: [facility]/pharmacy #[id number] - [place], [place] - [facility] Ranjit FULLER ( #: [phone]) Comments: Per [place] law, C-II Rx's must include written & numerical notation of quantity. Quantity (in words) TWELVE Associated Diagnoses: Peritonsillar abscess Disposition: AMA Follow-Up: No follow-up provider specified. KAZ HUMPHREY DO 10/12/2022 Kaz Humphrey DO 10/12/22451 * Letty Carmona RN - 10/12/2022 3:20 AM CDT Pt arrives to ED with complaints of a sore throat. He was seen here yesterday and was given an antibiotic. documented in this encounter Plan of Treatment Not on file documented as of this encounter Procedures Procedure Name Priority Date/Time Associated Diagnosis Comments CT SOFT TISSUE NECK W CON STAT 10/12/2022 4:15 AM CDT COMPREHENSIVE METABOLIC PANEL STAT 10/12/2022 3:32 AM CDT HETEROPHILE ANTIBODIES,SCREEN STAT 10/12/2022 3:32 AM CDT CBC W/DIFF AUTOMATED STAT 10/12/2022 3:32 AM CDT documented in this encounter Results * CT SOFT TISSUE NECK W CON (10/12/2022 4:15 AM CDT) Anatomical Region Laterality Modality Neck Computed Tomogra phy 10/12/2022 4:19 AM CDT Impressions 10/12/2022 4:27 AM CDT IMPRESSION: 1. ??Right palatine peritonsillar collection/abscess. 2. ??Chronic appearing obstruction and long segment occlusion of the proximal right internal carotid artery. Probable distal reconstitution of flow involving the cavernous portion of the right internal carotid artery. Nonemergent CTA head and neck examination and/or MRA head and neck could be beneficial for further characterization. 3. ??Incidental positive remodeling of the sella with lucency extending along the margin of the left cavernous sinus. Findings could be seen in the setting of a pituitary adenoma in the appropriate clinical setting. If warranted clinically, MRI brain with contrast and pituitary protocol could be beneficial for further characterization. 4. ??Focal encephalomalacia involving the right temporal occipital lobe region. Ordered By: KAZ HUMPHREY Interpreted By: Deonte Mckeon MD, 10/12/2022 4:19 AM Narrative 10/12/2022 4:27 AM CDT Examination: CT SOFT TISSUE NECK W CON, 10/12/2022 4:19 AM. Technique: Computed tomographic images of the soft tissues of the neck were obtained after the administration of 95 mL of Isovue 370 injected through the right forearm IV, without evidence of an adverse reaction. Additional coronal and sagittal reformatted images were generated at a separate workstation. A dose lowering technique was used for this procedure, which may include, but is not limited to, dose reduction technique, automated exposure control, the use of iterative reconstruction, and ALARA (As Low As Reasonably Achievable) / Image Gently techniques. Clinical history: Sore throat, difficulty swallowing Comparison: None available Findings: There is a 2.7 x 1.2 x 0.8 cm right palatine peritonsillar collection (best seen on series 6 image 65, series 4 image 51, series 2 image 51). There is mild to moderate right aryepiglottic fold thickening. This contributes to effacement of the right piriform sinus. Mild right parapharyngeal soft tissue thickening. No cervical chain adenopathy. The thyroid appears normal. The lung apices are well aerated. Chronic appearing obstruction and long segment occlusion of the proximal right internal carotid artery (best seen on series 2 image 55, series 4 image 60). Probable distal reconstitution of flow involving the cavernous portion of the right internal carotid artery. Focal encephalomalacia involving the right temporal occipital lobe region (best seen on series 2 image 5). 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 Incidental positive remodeling of the sella with lucency extending along the margin of the left cavernous sinus (best seen on series 4 image 51, series 6 image 69). Procedure Note Deonte Mckeon MD - 10/12/2022 Examination: CT SOFT TISSUE NECK W CON, 10/12/2022 4:19 AM. Technique: Computed tomographic images of the soft tissues of the neckwere obtained after the administration of 95 mL of Isovue 370 injectedthrough the right forearm IV, without evidence of an adverse reaction.Additional coronal and sagittal reformatted images were generated at [employer] workstation. A dose lowering technique was used for thisprocedure, which may include, but is not limited to, dose reductiontechnique, automated exposure control, the use of iterativereconstruction, and ALARA (As Low As Reasonably Achievable) / Image Gentlytechniques. Clinical history: Sore throat, difficulty swallowing Comparison: None available Findings: There is a 2.7 x 1.2 x 0.8 cm right palatine peritonsillar collection(best seen on series 6 image 65, series 4 image 51, series 2 image 51).There is mild to moderate right aryepiglottic fold thickening. Thiscontributes to effacement of the right piriform sinus. Mild rightparapharyngeal soft tissue thickening. No cervical chain adenopathy. Thethyroid appears normal. The lung apices are well aerated. Chronic appearing obstruction and long segment occlusion of the proximalright internal carotid artery (best seen on series 2 image 55, series 4image 60). Probable distal reconstitution of flow involving the cavernousportion of the right internal carotid artery. Focal encephalomalaciainvolving the right temporal occipital lobe region (best seen on series 2image 5). Prior bilateral ocular lens extractions with prosthetic lensimplantation. Incidental positive remodeling of the sella with lucency extending alongthe margin of the left cavernous sinus (best seen on series 4 image 51,series 6 image 69). IMPRESSION: 1. Right palatine peritonsillar collection/abscess. 2. Chronic appearing obstruction and long segment occlusion of theproximal right internal carotid artery. Probable distal reconstitution offlow involving the cavernous portion of the right internal carotid artery.Nonemergent CTA head and neck examination and/or MRA head and neck couldbe beneficial for further characterization. 3. Incidental positive remodeling of the sella with lucency extendingalong the margin of the left cavernous sinus. Findings could be seen inthe setting of a pituitary adenoma in the appropriate clinical setting. Ifwarranted clinically, MRI brain with contrast and pituitary protocol couldbe beneficial for further characterization. 4. Focal encephalomalacia involving the right temporal occipital loberegion. Ordered By: KAZ HUMPHREY Interpreted By: Deonte Mckeon MD, 10/12/2022 4:19 AM Kaz Humphrey DO CT Final Result * Monospot (10/12/2022 3:32 AM CDT) Pathologist [facility] MONO TEST NEGATIVE NEGATIVE 10/12/2022 4:04 AM CDT [facility] 10/12/2022 3:32 AM CDT Kaz Humphrey DO LABORATORY Final Result [address] [place] [address], * (ABNORMAL) CBC W/DIFF AUTOMATED (10/12/2022 3:32 AM CDT) Pathologist [facility] WBC 13.00(H) 4.50 - 11.00 x10'3/uL 10/12/2022 3:57 AM CDT [facility] RBC 4.51 4.50 - 5.90 x10'6/uL 10/12/2022 3:57 AM CDT [facility] HGB 13.3 12.0 - 16.0 G/DL 10/12/2022 3:57 AM CDT [facility] HCT 39.0 37.0 - 49.0 % 10/12/2022 3:57 AM CDT [facility] MCV 86.5 80.0 - 100.0 FL 10/12/2022 3:57 AM CDT [facility] MCH 29.5 26.0 - 34.0 PG 10/12/2022 3:57 AM CDT [facility] MCHC 34.1 31.0 - 37.0 G/DL 10/12/2022 3:57 AM CDT [facility] RDW 14.6 11.6 - 14.8 % 10/12/2022 3:57 AM CDT [facility] PLT 186 140 - 415 x10'3/uL 10/12/2022 3:57 AM CDT [facility] MPV 8.7 7.0 - 12.0 FL 10/12/2022 3:57 AM CDT [facility] CBC COMMENT AUTOMATED RBC MORPHOLOGY AND PLATELET EVALUATION NORMAL 10/12/2022 3:57 AM CDT [facility] NEUTROPHILS % 84.9(H) 40.0 - 74.0 % 10/12/2022 3:57 AM CDT [facility] LYMPHOCYTES % 6.3(L) 14.0 - 46.0 % 10/12/2022 3:57 AM CDT [facility] MONOCYTES % 7.0 4.0 - 13.0 % 10/12/2022 3:57 AM CDT [facility] EOSINOPHILS 1.2 0.0 - 7.0 % 10/12/2022 3:57 AM CDT [facility] BASOPHILS 0.2 0.0 - 3.0 % 10/12/2022 3:57 AM CDT [facility] IMMATURE GRANS % 0.4 0.0 - 0.43 % 10/12/2022 3:57 AM CDT [facility] NRBC 0.0 % 10/12/2022 3:57 AM CDT [facility] ABS. NEUTROPHILS TOTAL 11.04(H) 1.69 - 7.81 x10'3/uL 10/12/2022 3:57 AM CDT [facility] ABS. LYMPHOCYTES 0.82 0.21 - 5.42 x10'3/uL 10/12/2022 3:57 AM CDT [facility] ABS. MONOCYTES 0.91 0.04 - 1.37 x10'3/uL 10/12/2022 3:57 AM CDT [facility] ABS. EOSINOPHILS 0.15 0.00 - 0.68 x10'3/uL 10/12/2022 3:57 AM CDT [facility] ABS. BASOPHILS 0.03 0.00 - 0.08 x10'3/uL 10/12/2022 3:57 AM CDT [facility] ABS. IMMATURE GRANULOCYTES 0.05 0.00 - 0.06 x10'3/uL 10/12/2022 3:57 AM CDT [facility] ABS. NUCLEATED RBC'S 0.00 0.00 x10'3/uL 10/12/2022 3:57 AM CDT [facility] 10/12/2022 3:32 AM CDT us Kaz Humphrey DO LABORATORY Final Result [facility] [address] [place] [address], * (ABNORMAL) COMPREHENSIVE METABOLIC PANEL (10/12/2022 3:32 AM CDT) [facility] GLUCOSE 161(H) 70 - 99 MG/DL 10/12/2022 4:10 AM CDT [facility] BUN 29(H) 7 - 18 MG/DL 10/12/2022 4:10 AM CDT [facility] CREATININE S/P/B 1.52(H) 0.50 - 1.20 MG/DL 10/12/2022 4:10 AM CDT [facility] SODIUM S/P/B 132(L) 136 - 145 MMOL/L 10/12/2022 4:10 AM CDT [facility] POTASSIUM S/P/B 4.6 3.5 - 5.1 MMOL/L 10/12/2022 4:10 AM CDT [facility] CHLORIDE S/P/B 101 100 - 108 MMOL/L 10/12/2022 4:10 AM CDT [facility] CO2 21.2 21.0 - 32.0 MMOL/L 10/12/2022 4:10 AM CDT [facility] CALCIUM S/P/B 8.9 8.5 - 10.1 MG/DL 10/12/2022 4:10 AM CDT [facility] BILIRUBIN TOTAL S/P/B 0.5 0.2 - 1.2 MG/DL 10/12/2022 4:10 AM CDT [facility] Comment: THIS ASSAY IS NOT RECOMMENDED FOR PATIENTS UNDERGOING TREATMENT WITH ELTROMBOPAG DUE TO THE POTENTIAL FOR FALSELY ELEVATED RESULTS. TOTAL PROTEIN S/P/B 7.5 6.4 - 8.2 G/DL 10/12/2022 4:10 AM CDT [facility] ALBUMIN S/P/B 3.4 3.4 - 5.0 G/DL 10/12/2022 4:10 AM CDT [facility] AST 14(L) 15 - 37 U/L 10/12/2022 4:10 AM CDT [facility] ALT 31 16 - 60 U/L 10/12/2022 4:10 AM CDT [facility] ALKALINE PHOSPHATASE S/P/B 93 50 - 136 U/L 10/12/2022 4:10 AM CDT [facility] ANION GAP 9.8 5.0 - 15.0 MMOL/L 10/12/2022 4:10 AM CDT [facility] BUN CREATININE RATIO 19.1 6 - 26 10/12/2022 4:10 AM CDT [facility] A/G RATIO 0.8(L) 1.0 - 2.5 RATIO 10/12/2022 4:10 AM CDT [facility] GFR ESTIMATE 50(L) >90 ML/MIN/1.7 3 M2 10/12/2022 4:10 AM CDT [facility] Comment: NOTE: eGFR is not calculated for patients <18 years of age. This is an estimated GFR calculation using the new CKD EPI creatinine equation without race and so does not require a correction factor for race. This estimated GFR should not be used for calculating drug doses. 10/12/2022 3:32 AM CDT us Kaz Humphrey DO LABORATORY Final Result [address] [place] [address], documented in this encounter Visit Diagnoses Diagnosis Peritonsillar abscess- Primary documented in this encounter Administered Medications Inactive Administered Medications - up to 3 most recent administrations Medication Order MAR Action Action Date Dose Rate Site HYDROcodone-acetaminophen (NORCO) 5-325 MG tablet 2 tablet 2 tablet, Oral, Every 6 hours PRN, Moderate pain (Scale 4 - 7), 2 doses, Starting on Wed10/12/22 at 0449, Until Wed10/12/22 at 0709, MEDICATION FOR TAKE HOME Given 10/12/2022 4:52 AM CDT 2 tablets iopamidol (ISOVUE-370) 76 % injection 95 mL 95 mL, Intravenous, IMG once as needed, Contrast, 1 dose, Starting on Wed10/12/22 at 0415, Until Wed10/12/22 at 0408 Given 10/12/2022 4:08 AM CDT 95 mLs ketorolac (TORADOL) injection 30 mg 30 mg, Intravenous, Once, 1 dose, On Wed10/12/22 at 0345, For IV administration, give over 15 seconds. Given 10/12/2022 4:22 AM CDT 30 mg methylPREDNISolone sodium succinate (SOLU-Medrol) injection 125 mg 125 mg, Intravenous, Once, 1 dose, On Wed10/12/22 at 0445, If ordered IV, administer into a vein over 3-15 minutes. Doses >= 2 mg/kg or 250mg should be given by infusion, unless the benefits of IV injection outweigh the risks (life-threatening shock) Given 10/12/2022 4:53 AM CDT 125 mg morphine injection 4 mg 4 mg, Intravenous, Once, 1 dose, On Wed10/12/22 at 0345 Given 10/12/2022 4:22 AM CDT 4 mg ondansetron (ZOFRAN) injection 4 mg 4 mg, Intravenous, Once, 1 dose, On Wed10/12/22 at 0345, IV push over 2-5 minutes. Given 10/12/2022 4:22 AM CDT 4 mg sodium chloride 0.9% bolus infusion 1,000 mL 1,000 mL, Intravenous, Administer over 60 Minutes, Once, 1 dose, On Wed10/12/22 at 0345 New Bag 10/12/2022 4:22 AM CDT 1,000 mLs documented in this encounter Active and Recently Administered Medications Times are shown in CDT. Scheduled Medication Order 10/10/2022 10/11/2022 10/12/2022 ketorolac (TORADOL) injection 30 mg (COMPLETED) 30 mg, Intravenous, Once, 1 dose, On Wed10/12/22 at 0345, For IV administration, give over 15 seconds. 0422 (Given - Provid er: Letty Carmona RN) methylPREDNISolone sodium succinate (SOLU-Medrol) injection 125 mg (COMPLETED) 125 mg, Intravenous, Once, 1 dose, On Wed10/12/22 at 0445, If ordered IV, administer into a vein over 3-15 minutes. Doses >= 2 mg/kg or 250mg should be given by infusion, unless the benefits of IV injection outweigh the risks (life-threatening shock) 0453 (Given - Provid er: Letty Carmona RN) morphine injection 4 mg (COMPLETED) 4 mg, Intravenous, Once, 1 dose, On Wed10/12/22 at 0345 0422 (Given - Provid er: Letty Carmona RN) ondansetron (ZOFRAN) injection 4 mg (COMPLETED) 4 mg, Intravenous, Once, 1 dose, On Wed10/12/22 at 0345, IV push over 2-5 minutes. 0422 (Given - Provid er: Letty Carmona RN) sodium chloride 0.9% bolus infusion 1,000 mL (COMPLETED) 1,000 mL, Intravenous, Administer over 60 Minutes, Once, 1 dose, On Wed10/12/22 at 0345 0422 (New Bag - Prov ider: Letty Carmona RN)0454 (Infusion Stop Time - Provider: Letty Carmona RN) PRN Medication Order 10/10/2022 10/11/2022 10/12/2022 HYDROcodone-acetaminophen (NORCO) 5-325 MG tablet 2 tablet 2 tablet, Oral, Every 6 hours PRN, Moderate pain (Scale 4 - 7), 2 doses, Starting on Wed10/12/22 at 0449, Until Wed10/12/22 at 0709, MEDICATION FOR TAKE HOME 0452 (Given - Provid er: Letty Carmona RN - Comment: For take home) iopamidol (ISOVUE-370) 76 % injection 95 mL (COMPLETED) 95 mL, Intravenous, IMG once as needed, Contrast, 1 dose, Starting on Wed10/12/22 at 0415, Until Wed10/12/22 at 0408 0408 (Given - Provid er: Beronica Orellana) documented in this encounter Care Teams Community Health Specialist Relationship Specialty Start Date End Date None, Provider, PCP - General 10/10/21 documented as of this encounter
--- OUTSIDE RECORDS SUMMARY | 2024-05-22 00:07 | XMS_ITS | Encounter Summary ---
Author Organization [facility] Address [address] [place] [address]. [place] [address] [place] [address] Care Team Providers Care Cit[employer] Systems Administrator Name Role Phone None, Provider Primary Care Provider Unavaila ble Reason for Visit * Reason Comments Abdominal Pain * Auth/Cert Specialty Diagnoses / Procedures Referred By Lina tate Referred To Contact Referral ID Status Reason Start Date Expiration Date Visits Re quested Visits Authorized [id number] 1 1 Encounter Details Date Type Department Care Team (Late st Contact Info) Description 10/10/2021 1:54 PM CDT - 10/10/2021 4:23 PM CDT Emergency [facility] Emergency Services [address] [place] [address] Kaz Guerrier, DO [address] [place], [place] [address] Abdominal Pain Discharge Disposition: Home or Self Care (Routine [...] suspected to have Coronavirus/COVID-19? No / Unsure 10/10/2021 2:29 PM CDT documented as of this encounter Last Filed Vital Signs Vital Sign Reading Time Taken Comments Blood Pressure 162/96 10/10/2021 3:30 PM CDT Pulse 63 10/10/2021 4:20 PM CDT Temperature 36.5 ??C (97.7 ??F) 10/10/2021 2:46 PM CD T Respiratory Rate 16 10/10/2021 4:20 PM CDT Oxygen Saturation 98% 10/10/2021 4:20 PM CDT Inhaled Oxygen Concentration - - Weight 108.9 kg (240 lb) 10/10/2021 2:46 PM CDT Height 180.3 cm (5' 11 ) 10/10/2021 2:46 PM CDT Body Mass Index 33.47 10/10/2021 2:46 PM CDT documented in this encounter Discharge Instructions * Attachments The following attachments cannot be sent through Care Everywhere. * Pancreatitis Discharge Instructions (Belarusian) documented in this encounter ED Notes * Kaz Guerrier, DO - 10/10/2021 2:46 PM CDT Chief Complaint Chief Complaint Patient presents with ??? Abdominal Pain History of Present Illness Mr. Higginbotham presents to the emergency department with chief complaint of abdominal pain bloating. He was discharged from hospital in [place] yesterday for acute pancreatitis and a myocardial infarction. He states that he feels well however he drank water today and had sharp epigastric pain. Mr. Higginbotham states that when he drank wine last night he had no pain. Due to the pain he experienced this morning, he contacted his primary care physician who recommended that he return to the hospital for reevaluation due to his recent acute pancreatitis. At present Mr. Higginbotham has no pain in his abdomen. He denies any additional complaints or associate manifestations. Specifically he denies chest pain/pressure, fever/chills, shortness of breath, flank pain, urinary symptoms, nausea, vomiting, or diarrhea. Medical History ALLERGIES: No Known Allergies MEDICATIONS: Prior to Admission medications Not on File PAST MEDICAL HISTORY: Past Medical History: Diagnosis Date ??? Cancer (CMS/HCC) ??? COPD (chronic obstructive pulmonary disease) (CMS/HCC) ??? Diabetes mellitus (CMS/HCC) ??? Hypertension ??? ST elevation (STEMI) myocardial infarction of unspecified site (CMS/HCC) 5 total ??? Stroke (CMS/HCC) PAST SURGICAL HISTORY: Past Surgical History: Procedure Laterality Date ??? APPENDECTOMY ??? BACK SURGERY ??? PART REMOVAL COLON W ANASTOMOSIS ??? REPAIR INCISIONAL HERNIA,REDUCIBLE FAMILY HISTORY: No family history on file. SOCIAL HISTORY: Social History Tobacco Use ??? Smoking status: Current Every Day Smoker Packs/day: 2.00 Types: Cigarettes ??? Smokeless tobacco: Never Used Substance Use Topics ??? Alcohol use: Yes Alcohol/week: 1.7 standard drinks Types: 1 Glasses of wine per week ??? Drug use: Never Review of Systems Review of Systems Gastrointestinal: Positive for abdominal pain. All other systems reviewed and are negative. Physical Exam Filed Vitals: 10/10/21 1446 10/10/21 1500 10/10/21 1530 10/10/21 1600 BP: (!) 172/82 (!) 162/96 Pulse: 68 65 65 60 Resp: 19 23 (!) 31 25 Temp: 97.7 ??F (36.5 ??C) TempSrc: Temporal SpO2: 95% 96% 96% 95% Weight: 108.9 kg (240 lb) Height: 5' 11 (1.803 m) Physical Exam Vitals and nursing note reviewed. Constitutional: General: He is not in acute distress. Appearance: He is obese. He is not ill-appearing or toxic-appearing. HENT: Head: Normocephalic and atraumatic. Right Ear: External ear normal. Left Ear: External ear normal. Nose: Nose normal. Mouth/Throat: Mouth: Mucous membranes are moist. Pharynx: Oropharynx is clear. Eyes: Extraocular Movements: Extraocular movements intact. Conjunctiva/sclera: Conjunctivae normal. Cardiovascular: Rate and Rhythm: Normal rate and regular rhythm. Heart sounds: Normal heart sounds. Pulmonary: Effort: Pulmonary effort is normal. Breath sounds: Normal breath sounds. Abdominal: General: Bowel sounds are normal. There is no distension. Palpations: Abdomen is soft. Tenderness: There is no abdominal tenderness. There is no guarding. Musculoskeletal: General: Normal range of motion. Cervical back: Normal range of motion. Skin: General: Skin is warm. Neurological: General: No focal deficit present. Mental Status: He is alert and oriented to person, place, and time. Mental status is at baseline. Psychiatric: Mood and Affect: Mood normal. Behavior: Behavior normal. Thought Content: Thought content normal. Diagnostic Studies / Procedures ELECTROCARDIOGRAMS: No results found for this visit on 10/10/21. LABORATORY STUDIES: Results for orders placed or performed during the hospital encounter of 10/10/21 CBC W/DIFF AUTOMATED Result Value Ref Range WBC 10.8 4.5 - 11.0 x10'3/uL RBC 4.04 (L) 4.5 - 5.9 x10'6/uL HGB 11.6 (L) 12.0 - 16.0 G/DL HCT 35.5 (L) 37.0 - 49.0 % MCV 87.9 80.0 - 100.0 FL MCH 28.7 26.0 - 34.0 PG MCHC 32.7 31.0 - 37.0 G/DL RDW 14.4 11.6 - 14.8 % PLT 375 140 - 415 x10'3/uL MPV 8.3 7.0 - 12.0 FL CBC COMMENT AUTOMATED RBC MORPHOLOGY AND PLATELET EVALUATION NORMAL NEUTROPHILS 72.4 40.0 - 74.0 % LYMPHOCYTES 14.4 14.0 - 46.0 % MONOCYTES 7.8 4.0 - 13.0 % EOSINOPHILS 2.7 0.0 - 7.0 % BASOPHILS 0.2 0.0 - 3.0 % IMMATURE GRANS 2.5 (H) 0.0 - 0.43 % ABS. NEUTROPHILS TOTAL 7.85 (H) 1.69 - 7.81 x10'3/uL ABS. LYMPHOCYTES 1.56 0.21 - 5.42 x10'3/uL ABS. MONOCYTES 0.84 0.04 - 1.37 x10'3/uL ABS. EOSINOPHILS 0.29 0.00 - 0.68 x10'3/uL ABS. BASOPHILS 0.02 0.00 - 0.08 x10'3/uL ABS. IMMATURE GRANULOCYTES 0.27 (H) 0.00 - 0.06 x10'3/uL COMPREHENSIVE METABOLIC PANEL Result Value Ref Range GLUCOSE 174 (H) 70 - 99 MG/DL BUN 12 7 - 18 MG/DL CREATININE S/P/B 1.36 (H) 0.50 - 1.20 MG/DL SODIUM 136 136 - 145 MMOL/L POTASSIUM 3.7 3.5 - 5.1 MMOL/L CHLORIDE S/P/B 102 100 - 108 MMOL/L CO2 25.5 21.0 - 32.0 MMOL/L CALCIUM 8.8 8.5 - 10.1 MG/DL BILIRUBIN TOTAL S/P/B 0.3 0.2 - 1.2 MG/DL TOTAL PROTEIN S/P/B 6.5 6.4 - 8.2 G/DL ALBUMIN S/P/B 2.8 (L) 3.4 - 5.0 G/DL AST 18 15 - 37 U/L ALT 26 16 - 60 U/L ALKALINE PHOSPHATASE S/P/B 93 50 - 136 U/L ANION GAP 8.5 5.0 - 15.0 MMOL/L BUN CREATININE RATIO 8.8 6 - 26 A/G RATIO 0.8 (L) 1.0 - 2.5 RATIO GFR ESTIMATE 58 (L) >90 ML/MIN/1.73 M2 LIPASE Result Value Ref Range LIPASE 250 73 - 393 UNITS/L IMAGING STUDIES No orders to display ED Course / Medical Decision Making MDM Number of Diagnoses or Management Options Amount and/or Complexity of Data Reviewed Clinical lab tests: ordered and reviewed ED Course as of 10/10/21 1618 WedOct 10, 2021 1614 Labs resulted and are reassuring. Patient had no epigastric or abdominal pain while in the emergency department. Pancreatitis diet was reinforced with Mr. Higginbotham. He was advised to follow-up with his primary care physician who is at the [facility] in [place]. He agrees to return to the emergency department for any sudden change in his current condition. [MB] ED Course User Index [MB] Kaz Guerrier DO Clinical Impression Pain of upper abdomen (Primary) History of pancreatitis Anxiety about health Disposition: Discharge Kaz Guerrier DO 10/10/21 1619 documented in this encounter Plan of Treatment Not on file documented as of this encounter Procedures Procedure Name Priority Date/Time Associated Diagnosis Comments COMPREHENSIVE METABOLIC PANEL STAT 10/10/2021 3:18 PM CDT CBC W/DIFF AUTOMATED STAT 10/10/2021 3:18 PM CDT LIPASE STAT 10/10/2021 3:18 PM CDT documented in this encounter Results * LIPASE (10/10/2021 3:18 PM CDT) LIPASE 250 73 - 393 UNITS/L 10/10/2021 3:55 PM CDT [facility] 10/10/2021 3:18 PM CDT us Kaz Guerrier DO LABORATORY Final Result [facility] [address] [place] [address], * (ABNORMAL) COMPREHENSIVE METABOLIC PANEL (10/10/2021 3:18 PM CDT) Pathologist [facility] GLUCOSE 174(H) 70 - 99 MG/DL 10/10/2021 3:55 PM CDT [facility] BUN 12 7 - 18 MG/DL 10/10/2021 3:55 PM CDT [facility] CREATININE S/P/B 1.36(H) 0.50 - 1.20 MG/DL 10/10/2021 3:55 PM CDT [facility] SODIUM S/P/B 136 136 - 145 MMOL/L 10/10/2021 3:55 PM CDT [facility] POTASSIUM S/P/B 3.7 3.5 - 5.1 MMOL/L 10/10/2021 3:55 PM CDT [facility] CHLORIDE S/P/B 102 100 - 108 MMOL/L 10/10/2021 3:55 PM CDT [facility] CO2 25.5 21.0 - 32.0 MMOL/L 10/10/2021 3:55 PM CDT [facility] CALCIUM S/P/B 8.8 8.5 - 10.1 MG/DL 10/10/2021 3:55 PM CDT [facility] BILIRUBIN TOTAL S/P/B 0.3 0.2 - 1.2 MG/DL 10/10/2021 3:55 PM CDT [facility] Comment: THIS ASSAY IS NOT RECOMMENDED FOR PATIENTS UNDERGOING TREATMENT WITH ELTROMBOPAG DUE TO THE POTENTIAL FOR FALSELY ELEVATED RESULTS. TOTAL PROTEIN S/P/B 6.5 6.4 - 8.2 G/DL 10/10/2021 3:55 PM CDT [facility] ALBUMIN S/P/B 2.8(L) 3.4 - 5.0 G/DL 10/10/2021 3:55 PM CDT [facility] AST 18 15 - 37 U/L 10/10/2021 3:55 PM CDT [facility] ALT 26 16 - 60 U/L 10/10/2021 3:55 PM CDT [facility] ALKALINE PHOSPHATASE S/P/B 93 50 - 136 U/L 10/10/2021 3:55 PM CDT [facility] ANION GAP 8.5 5.0 - 15.0 MMOL/L 10/10/2021 3:55 PM CDT [facility] BUN CREATININE RATIO 8.8 6 - 26 10/10/2021 3:55 PM CDT [facility] A/G RATIO 0.8(L) 1.0 - 2.5 RATIO 10/10/2021 3:55 PM CDT [facility] GFR ESTIMATE 58(L) >90 ML/MIN/1.7 3 M2 10/10/2021 3:55 PM CDT [facility] Comment: NOTE: eGFR is not calculated for patients <18 years of age. This is an estimated GFR calculation using the new CKD EPI creatinine equation without race and so does not require a correction factor for race. This estimated GFR should not be used for calculating drug doses. 10/10/2021 3:18 PM CDT us Kaz Guerrier DO LABORATORY Final Result [address] [place] [address], * (ABNORMAL) CBC W/DIFF AUTOMATED (10/10/2021 3:18 PM CDT) WBC 10.8 4.5 - 11.0 x10'3/uL 10/10/2021 3:33 PM CDT [facility] RBC 4.04(L) 4.5 - 5.9 x10'6/uL 10/10/2021 3:33 PM CDT [facility] HGB 11.6(L) 12.0 - 16.0 G/DL 10/10/2021 3:33 PM CDT [facility] HCT 35.5(L) 37.0 - 49.0 % 10/10/2021 3:33 PM CDT [facility] MCV 87.9 80.0 - 100.0 FL 10/10/2021 3:33 PM CDT [facility] MCH 28.7 26.0 - 34.0 PG 10/10/2021 3:33 PM CDT [facility] MCHC 32.7 31.0 - 37.0 G/DL 10/10/2021 3:33 PM CDT [facility] RDW 14.4 11.6 - 14.8 % 10/10/2021 3:33 PM CDT [facility] PLT 375 140 - 415 x10'3/uL 10/10/2021 3:33 PM CDT [facility] MPV 8.3 7.0 - 12.0 FL 10/10/2021 3:33 PM CDT [facility] CBC COMMENT AUTOMATED RBC MORPHOLOGY AND PLATELET EVALUATION NORMAL 10/10/2021 3:33 PM CDT [facility] NEUTROPHILS % 72.4 40.0 - 74.0 % 10/10/2021 3:33 PM CDT [facility] LYMPHOCYTES % 14.4 14.0 - 46.0 % 10/10/2021 3:33 PM CDT [facility] MONOCYTES % 7.8 4.0 - 13.0 % 10/10/2021 3:33 PM CDT [facility] EOSINOPHILS 2.7 0.0 - 7.0 % 10/10/2021 3:33 PM CDT [facility] BASOPHILS 0.2 0.0 - 3.0 % 10/10/2021 3:33 PM CDT [facility] IMMATURE GRANS % 2.5(H) 0.0 - 0.43 % 10/10/2021 3:33 PM CDT [facility] ABS. NEUTROPHILS TOTAL 7.85(H) 1.69 - 7.81 x10'3/uL 10/10/2021 3:33 PM CDT [facility] ABS. LYMPHOCYTES 1.56 0.21 - 5.42 x10'3/uL 10/10/2021 3:33 PM CDT [facility] ABS. MONOCYTES 0.84 0.04 - 1.37 x10'3/uL 10/10/2021 3:33 PM CDT [facility] ABS. EOSINOPHILS 0.29 0.00 - 0.68 x10'3/uL 10/10/2021 3:33 PM CDT [facility] ABS. BASOPHILS 0.02 0.00 - 0.08 x10'3/uL 10/10/2021 3:33 PM CDT [facility] ABS. IMMATURE GRANULOCYTES 0.27(H) 0.00 - 0.06 x10'3/uL 10/10/2021 3:33 PM CDT [facility] 10/10/2021 3:18 PM CDT Kaz Guerrier DO LABORATORY Final Result [address] [place] [address], [place] documented in this encounter Visit Diagnoses Diagnosis Pain of upper abdomen- Primary Abdominal pain, other specified site History of pancreatitis Personal history of other diseases of digestive system Anxiety about health documented in this encounter Care Teams [employer] Systems Administrator Relationship Specialty Start Date End Date None, Provider, PCP - General 10/10/21 documented as of this encounter
--- OUTSIDE RECORDS SUMMARY | 2024-05-22 00:07 | XMS_ITS | Encounter Summary ---
Author Organization [facility] Address [address] [place] [address]. [place], [place] [id number] [place] [id number] Care Team Providers Care Air Sampling And Monitoring Name Role Phone None, Provider Primary Care Provider Unavaila ble Encounter Details Date Type Department Care Team (Latest Contact Info) Description 10/10/2021 Travel Social History Tobacco Use Types Packs/Day [...] on filedocumented in this encounter Care Teams [employer] Sampling And Monitoring Relationship Specialty Start Date End Date None, Provider, PCP - General 10/10/21 documented as of this encounter
--- OUTSIDE RECORDS SUMMARY | 2024-05-22 00:07 | XMS_ITS | Encounter Summary ---
Author Organization [facility] Address [address] [place] [address]. [place], [place] [id number] [place] [id number] Care Team Providers Care Surface Logging Systems Logger Name Role Phone None, Provider Primary Care Provider Unavaila ble Encounter Details Date Type Department Care Team (Latest Contact Info) Description 10/12/2022 Travel Social History Tobacco Use Types Packs/Day [...] AM CDT documented as of this encounter Plan of Treatment Not on file documented as of this encounter Visit Diagnoses Not on filedocumented in this encounter Care Teams Surface Logging Systems Logger Relationship Specialty Start Date End Date None, Provider, PCP - General 10/10/21 documented as of this encounter
--- OUTSIDE RECORDS SUMMARY | 2024-05-22 00:07 | XMS_ITS | Encounter Summary ---
Author Organization [facility] Address [address] [place] [address]. [place] [address] [place] [address] Care Team Providers Care Loan Reviewer Name Role Phone Unavailable Primary Care Provider Unavailabl e Encounter Details Date Type Department Care Team (Late st Contact Info) Description 01/22/2020 Abstract [facility] [address] [place] [address] Kristi Rosen MD [address] [facility] [address] [place] [address] Social History Tobacco Use Types Packs/Day Years [...] Date/Time Associated Diagnosis Comments COMPREHENSIVE METABOLIC PANEL Routine 01/22/2020 9:44 PM CDT COMPREHENSIVE METABOLIC PANEL Routine 01/22/2020 8:11 PM CDT CBC W/DIFF AUTOMATED Routine 01/22/2020 8:11 PM CDT MAGNESIUM Routine 01/22/2020 8:11 PM CDT documented in this encounter Results * (ABNORMAL) COMPREHENSIVE METABOLIC PANEL (01/22/2020 9:44 PM CDT) GLUCOSE 113(H) 70 - 99 mg/dL [facility] SODIUM S/P/B 137 136 - 145 mmol/L [facility] POTASSIUM S/P/B 6.4(HH) 3.5 - 5.1 mmol/L [facility] Comment:NIALL PALMER COMMENT TIME CALLED 2215 [facility] COMMENT YES [facility] COMMENT YES [facility] CHLORIDE S/P/B 108 100 - 108 mmol/L [facility] CO2 19(L) 21 - 32 mmol/L [facility] BUN 65(H) 7 - 18 mg/dL [facility] CREATININE S/P/B 2.2(H) 0.5 - 1.2 mg/dL [facility] TOTAL PROTEIN S/P/B 8.0 6.4 - 8.2 g/dL [facility] CALCIUM S/P/B 9.0 8.5 - 10.1 mg/dL [facility] BILIRUBIN TOTAL S/P/B 0.1(L) 0.2 - 1.2 mg/dL [facility] ALKALINE PHOSPHATASE S/P/B 113 50 - 136 U/L [facility] ALBUMIN S/P/B 3.6 3.4 - 5.0 g/dL [facility] AST 27 15 - 37 U/L [facility] ALT 62(H) 16 - 60 U/L [facility] PATIENT'S AGE 64 YEARS [facility] EGFR NON-AFR. AMER. 32 ml/min [facility] EGFR AFR. AMER. 39 ml/min [facility] ANION GAP 17 8 - 20 [facility] Comment: ?GFR INTERPRETATION ??According to the National Kidney Foundation, normal results range from 90 to 120 mL/min/1.73 m2. Older people will have lower than normal GFR levels, because GFR decreases with age. Normal value ranges may vary slightly among different laboratories 01/22/2020 9:44 PM CDT 01/22/2020 9:48 PM CDT us Kristi Rosen MD LABORATORY Final Resul t [facility] [address] [address] * (ABNORMAL) COMPREHENSIVE METABOLIC PANEL (01/22/2020 8:11 PM CDT) GLUCOSE 119(H) 70 - 99 mg/dL [facility] SODIUM S/P/B 137 136 - 145 mmol/L [facility] POTASSIUM S/P/B 6.5(HH) 3.5 - 5.1 mmol/L [facility] Comment: SPECIMEN SLIGHTLY HEMOLYZED NIALL PALMER COMMENT TIME CALLED 2116 [facility] COMMENT YES [facility] COMMENT YES [facility] CHLORIDE S/P/B 106 100 - 108 mmol/L [facility] CO2 20(L) 21 - 32 mmol/L [facility] BUN 66(H) 7 - 18 mg/dL [facility] CREATININE S/P/B 2.2(H) 0.5 - 1.2 mg/dL [facility] TOTAL PROTEIN S/P/B 8.5(H) 6.4 - 8.2 g/dL [facility] CALCIUM S/P/B 9.3 8.5 - 10.1 mg/dL [facility] BILIRUBIN TOTAL S/P/B 0.1(L) 0.2 - 1.2 mg/dL [facility] ALKALINE PHOSPHATASE S/P/B 115 50 - 136 U/L [facility] ALBUMIN S/P/B 3.8 3.4 - 5.0 g/dL [facility] AST 30 15 - 37 U/L [facility] ALT 65(H) 16 - 60 U/L [facility] PATIENT'S AGE 64 YEARS [facility] EGFR NON-AFR. AMER. 32 ml/min [facility] EGFR AFR. AMER. 39 ml/min [facility] ANION GAP 18 8 - 20 [facility] Comment: ?GFR INTERPRETATION ??According to the National Kidney Foundation, normal results range from 90 to 120 mL/min/1.73 m2. Older people will have lower than normal GFR levels, because GFR decreases with age. Normal value ranges may vary slightly among different laboratories 01/22/2020 8:11 PM CDT 01/22/2020 8:17 PM CDT Kristi Rosen MD LABORATORY Final Resul t Performing Organization Address [facility] de Phone Number [address] [address] * MAGNESIUM (01/22/2020 8:11 PM CDT) MAGNESIUM 1.8 1.8 - 2.4 mg/dL [facility] 01/22/2020 8:11 PM CDT 01/22/2020 8:17 PM CDT Kristi Rosen MD LABORATORY Final Resul t Performing Organization Address [facility] de Phone Number [address] [address] * (ABNORMAL) CBC W/DIFF AUTOMATED (01/22/2020 8:11 PM CDT) WBC 8.7 4.5 - 11.0 cmm [facility] RBC 3.4(L) 4.5 - 5.9 M/cumm [facility] HGB 9.8(L) 12.0 - 16.0 g/dL [facility] HCT 30.1(L) 37.0 - 49.0 % [facility] MCV 88.8 80.0 - 100 fL [facility] MCH 28.9 26.0 - 34.0 pg [facility] MCHC 32.6 31.0 - 37.0 g/dL [facility] RDW 15.6(H) 11.6 - 14.8 % [facility] PLT 393 140 - 415 cmm [facility] MPV 9 7 - 12 fl [facility] ABS. NEUTROPHILS 5.05 1.50 - 8.00 x10^3 [facility] ABS. LYMPHOCYTES 2.41 0.21 - 5.42 x10^3 [facility] ABS. MONOCYTES 0.67 0.04 - 1.37 x10^3 [facility] ABS. EOSINOPHILS 0.51 0.00 - 0.68 x10^3 [facility] ABS. BASOPHILS 0.05 0.00 - 0.08 x10^3 [facility] ABS. IMMATURE GRANULOCYTES 0.02 0.00 - 0.06 x10^3 [facility] NEUTROPHILS % 57.9 40.0 - 74.0 % [facility] LYMPHOCYTES % 27.7 14.0 - 46.0 % [facility] MONOCYTES % 7.7 4.0 - 13.0 % [facility] EOSINOPHILS % 5.9 0.0 - 7.0 % [facility] BASOPHILS % 0.6 0.0 - 3.0 % [facility] IMMATURE GRANS % 0.20 0.00 - 0.43 % [facility] MANUAL DIFFERENTIAL NOT INDICATED [facility] WBC MORPHOLOGY NOT INDICATED H [facility] RBC MORPHOLOGY NOT INDICATED H [facility] PLT MORPH. NOT INDICATED [facility] 01/22/2020 8:11 PM CDT 01/22/2020 8:17 PM CDT us Kristi Rosen MD LABORATORY Final Resul t [address] [address] documented in this encounter Visit Diagnoses Not on filedocumented in this encounter
--- OUTSIDE RECORDS SUMMARY | 2024-05-22 00:09 | XMS_ITS | Clinical Summary ---
Author Organization [facility] Address [address] [place] [address] Care Team Providers Care Online Journalist Name Role Phone Unavailable Primary Care Provider Unavailabl e Allergies Active Allergy Reactions Criticality Noted Date Comments Hydralazine Nausea And Vomiting Medium 02/11/2018 Lisinopril Rash Low 08/27/2020 Metformin Diarrhea Medium 09/02/2006 Pioglitazone Nausea And Vomiting Medium 01/27/2012 Simvastatin Rash Low 01/19/2022 Pt reports hot flashes Medications budesonide-formo terol (SYMBICORT) 160-4.5 MCG/ACT inhaler Inhale 2 puffs RT 2 (two) times a day. Active Brinzolamide-Kaylah monidine 1-0.2 % suspension Administer 1 drop into both eyes 3 (three) times a day. Active cabergoline (DOSTINEX) 0.5 MG tablet Take 0.5 tablets (0.25 mg total) by mouth 2 (two) times a week. Active carboxymethylcel lulose (Carboxymethylce llulose Sodium) solution Apply 1 drop (0.05 mL total) to both eyes 4 (four) times a day as needed for dry eyes. Active Tiotropium [place] Monohydrate (Spiriva Respimat) 2.5 MCG/ACT aerosol solution Inhale 2 puffs (5 mcg total) RT Daily. Active ergocalciferol (vitamin D2, Ergocalciferol,) 1.25 MG (40467 UT) capsule Take 1 capsule (50,000 Units total) by mouth once a week. Active cyclobenzaprine (FLEXERIL) 5 MG tablet Take 1 tablet (5 mg total) by mouth 3 (three) times a day as needed for muscle spasms for up to 3 doses. 3 tablet 3 Active melatonin tablet Take 2 tablets (2 mg total) by mouth nightly. 3 tablet 3 Active Active Problems Problem Noted Date Diagnosed Date Dysphagia 10/29/2022 Cerebrovascular accident 10/28/2022 Chronic obstructive pulmonary disease 10/12/2022 Coronary arteriosclerosis 10/12/2022 Primary hypertension 12/11/2021 Immunizations Name Administration Dates Next Due Influenza, Unspecified 05/10/2006 Pfizer SARS-CoV-2 Vaccination 10/29/2022 (Deferred: Not available - Not available) Pfizer SARS-CoV-2 Vaccinatio n (Bivalent) 10/28/2022(Deferred: Not available - not available) Pneumococcal Polysaccharide 08/17/2003 Td, Unspecified 12/09/2003 Tdap 07/23/2014 Family History Medical History Relation Name Comments No Known Problems Brother No Known Problems Father No Known Problems Mother No Known Problems Sister Relation Name Status Comments Brother Father Mother Sister Social History Tobacco Use Types Packs/Day Years Used Date Smoking Tobacco: Every Day Cigarettes 1 40 Started: 10/29/1982; Last attempted to quit: 10/23/2022 Passive Smoke Exposure: Past Smokeless Tobacco: Never Tobacco Cessation:Ready to Q uit: Yes; Counseling Given: No Alcohol Use Standard Drinks/Week Comments Never 0 (1 standard drink = 0.6 oz pur e alcohol) Sex and Gender Information Value Date Recorded Sex Assigned at Not on file Legal Sex Male 12:48 PM EDT Gender Identity Not on file Sexual Orientation Not on file Last Filed Vital Signs Vital Sign Reading Time Taken Comments Blood Pressure 127/64 11/20/2022 4:12 PM CDT Pulse 66 11/20/2022 4:12 PM CDT Temperature 36.5 ??C (97.7 ??F) 11/20/2022 7:27 AM CD T Respiratory Rate 16 11/20/2022 7:27 AM CDT Oxygen Saturation 95% 11/20/2022 7:27 AM CDT Inhaled Oxygen Concentration - - Weight 103.9 kg (229 lb) 11/15/2022 2:37 AM CDT Height 180.3 cm (5' 11 ) 11/15/2022 2:37 AM CDT Body Mass Index 31.94 11/15/2022 2:37 AM CDT Plan of Treatment Health Maintenance Due Date Last Done Comments CT Colonography 1956 Colonoscopy 1955 Colorectal Cancer Screening 1956 FIT-DNA (Cologuard) 1956 FIT 1956 FOBT 1956 Sigmoidoscopy 1956 Annual Visit Topic 1957 DTaP/Tdap/Td Vaccines (2 - T d or Tdap) 08/20/2014 07/23/2014 Pneumococcal Vaccine: 65+ Ye ars (1 of 4 - PCV) 2021 HIB Vaccines Aged Out No longer eligi ble based on patient's age to complete this topic HPV Vaccines Aged Out No longer eligi ble based on patient's age to complete this topic Hepatitis A Vaccines Aged Out No long er eligible based on patient's age to complete this topic Hepatitis B Vaccines Aged Out No long er eligible based on patient's age to complete this topic IPV Vaccines Aged Out No longer eligi ble based on patient's age to complete this topic Meningococcal Vaccine Aged Out No idania claudy eligible based on patient's age to complete this topic Advance Directives * Full Resuscitation (Latest Code Status on File) Date Activated Date Inactivated Comments 10/28/2022 10:12 PM 11/20/2022 10:19 PM
--- OUTSIDE RECORDS SUMMARY | 2024-05-22 00:09 | XMS_ITS | CONTINUITY OF CARE DOCUMENT ---
Author Name gina fuentes Address Unknown Organization [facility] Address [address] [address] [place] [address] Phone [phone] Care Team Providers Care Tie Knitter Helper Name Role Phone Steve Elise MD Unavailable [phone] Steve Elise MD Unavailable [phone] INSURANCE PROVIDERS Payer name Policy type / Coverage type [place] red democrat ID [id number] Medicare [id number]
--- OUTSIDE RECORDS SUMMARY | 2024-05-22 00:10 | XMS_ITS | Encounter Summary ---
Author Organization [facility] Address [address] [place] [address] Care Team Providers Care Crystalizer Name Role Phone Unavailable Primary Care Provider Unavailabl e Reason for Referral * Home Health (Routine) - Closed Specialty Diagnoses / Procedures Referred By Lina tate Referred To Contact Home Health Services Diagnoses Cerebrovascular accident Carolina Garibay MD [address] [place] [id number] Phone: tel: fax: Referral ID Status Reason Start Date Expiration Date V isits Requested Visits Authorized [id number] Closed Specialty Services Required 11/03/2022 05/02/2023 1 1 Question Answer Reason for Consult? Cerebrovascular accident Anticipated Discharge Date 11/11/2022 Therapy/Assistance in Home PT - eval and treat, OT - eval and treat, Snf Encounter Details Date Type Department Care Team (Latest Contact Info) Description 10/28/2022 9:05 PM CDT - 11/20/2022 7:12 PM CDT Hospital Encounter [facility] [address] [address] Carolina Garibay MD [address] [place] [id number] Cerebrovascular accident (Primary Dx) Discharge Disposition: Snf Facility (SNF) Social History Tobacco Use Types Packs/Day Years [...] Mass Index 31.94 11/15/2022 2:37 AM CDT documented in this encounter Discharge Summaries * Teresa Milner MD - 11/20/2022 9:08 AM CDT Hospitalist Discharge Summary REASON FOR ADMISSION: Patient Active Problem List Diagnosis Cerebrovascular accident Chronic obstructive pulmonary disease Coronary arteriosclerosis Primary hypertension Dysphagia ADMISSION DATE: 10/28/2022 DISCHARGE DATE: 11/20/2022 DISCHARGE DESTINATION; SNF/SNU HPI: 67-year-old male with past medical history of CAD, COPD, hypertension, diabetes, sleep apnea, coloncancer status post colectomy who was transferred to [facility] with new neurological deficits. Imaging confirmed acute on chronic right MCA and SHEA stroke. Patient did receive tPA in the ER. Patient was admitted to the neuro ICU. Patient's clinical condition stabilized. Patient was kept on aspirin Plavix for 90 days. Patient was started on statin. Patient is on Jardiance. Secondary stroke workup was completed. Patient also did complete a course of Unasyn for peritonsillar abscess. Patient worked with physical therapy and occupational therapy. Acute inpatient rehab was recommended. Acute CVA Patient found to have a right acute on chronic MCA stroke and a SHEA ischemic stroke Patient received tPA in the ER Patient was admitted to the neuro ICU Patient was started on aspirin and Plavix Secondary stroke workup was completed Patient will be on 90 days of aspirin Plavix, end date 01/18/2023 Continue physical therapy Continue occupational therapy Physical medicine physician to oversee overall rehab program Hypertension BP on low side- off amlodipine/losartan held Low dose coreg- monitor Bradycardia Coreg with holding parameters Mild renal insufficiency Added Hyperkalemia- improved Plan Continue to hold losartan- was on 25 mg- Avoid hypotension D/w Dr Ruby-appreciate input -K and Cr better Constipation- add scheduled Senna S/ Dulcolax once supp today- lokelma as above CAD Continue aspirin, coreg, plavix COPD Continue airduo Dysphagia Speech therapy HOSPITAL COURSE: The patient was admitted to [facility] to undergo intensive inpatient rehabilitation forfunctional deficits and debility secondary to the above noted diagnosis and hospital course. They participated fairly well with all disciplines of therapy and made progress as noted below in the score documentation. The following medical issues were addressed during this stay: DISCHARGE DIAGNOSES: @ADMDXS@ Patient Active Problem List Diagnosis Cerebrovascular accident Chronic obstructive pulmonary disease Coronary arteriosclerosis Primary hypertension Dysphagia Assessment and plan for medical issues that were managed here are listed below: MEDICATIONS ON DISCHARGE: Medication List START taking these medications Prescription Last Dose and Time given aspirin 81 MG EC tablet Instructions: Take 1 tablet (81 mg total) by mouth in the morning. Indications: Thickening and Hardening of Heart Arteries. Refill: 1 81 mg on November 20, 2022 8:46 AM carvedilol 3.125 MG tablet Commonly known as: COREG Instructions: Take 1 tablet (3.125 mg total) by mouth 2 (two) times a day with Breakfast and Dinner. Dispense: 60 tablet Refill: 1 3.125 mg on November 20, 2022 8:45 AM clopidogrel 75 MG tablet Commonly known as: PLAVIX Instructions: Take 1 tablet (75 mg total) by mouth in the morning for 59 days. Indications: Percutaneous Coronary Intervention, Stroke Due To Limited Blood Flow, Thickening and Hardening of Heart Arteries. Dispense: 59 tablet Refill: 0 75 mg on November 20, 2022 8:46 AM cyclobenzaprine 5 MG tablet Commonly known as: FLEXERIL Instructions: Take 1 tablet (5 mg total) by mouth 3 (three) times a day as needed for muscle spasmsfor up to 3 doses. Dispense: 3 tablet Refill: 0 5 mg on November 18, 2022 1:11 PM gabapentin 100 MG capsule Commonly known as: NEURONTIN Instructions: Take 2 capsules (200 mg total) by mouth 3 (three) times a day for 3 doses. Dispense: 6 capsule Refill: 0 200 mg on November 20, 2022 8:46 AM glipiZIDE 5 MG tablet Commonly known as: GLUCOTROL Instructions: Take 1 tablet (5 mg total) by mouth in the morning. Indications: Type 2 Diabetes. Dispense: 30 tablet Refill: 1 5 mg on November 20, 2022 8:46 AM nicotine 21 MG/24HR Commonly known as: NICODERM CQ Instructions: Place 1 patch (21 mg total) on the skin in the morning for 3 doses. Dispense: 3 patch Refill: 0 21 mg on November 20, 2022 9:00 AM rosuvastatin 40 MG tablet Commonly known as: CRESTOR Instructions: Take 1 tablet (40 mg total) by mouth in the morning. Dispense: 30 tablet Refill: 0 40 mg on November 20, 2022 8:47 AM tamsulosin 0.4 MG capsule Commonly known as: FLOMAX Instructions: Take 1 capsule (0.4 mg total) by mouth After Breakfast. Dispense: 30 capsule Refill: 0 0.4 mg on November 20, 2022 8:46 AM CHANGE how you take these medications Prescription Last Dose and Time given melatonin tablet What changed: how much to take Instructions: Take 2 tablets (2 mg total) by mouth nightly. Dispense: 3 tablet Refill: 0 9 mg on November 19, 2022 8:00 PM CONTINUE taking these medications Prescription Last Dose and Time given Brinzolamide-Brimonidine 1-0.2 % suspension Instructions: Administer 1 drop into both eyes 3 (three) times a day. Refill: 0 budesonide-formoterol 160-4.5 MCG/ACT inhaler Commonly known as: SYMBICORT Instructions: Inhale 2 puffs RT 2 (two) times a day. Refill: 0 cabergoline 0.5 MG tablet Commonly known as: DOSTINEX Instructions: Take 0.5 tablets (0.25 mg total) by mouth 2 (two) times a week. Refill: 0 carboxymethylcellulose solution Commonly known as: REFRESH PLUS Instructions: Apply 1 drop (0.05 mL total) to both eyes 4 (four) times a day as needed for dry eyes. Refill: 0 ergocalciferol 1.25 MG (60396 UT) capsule Commonly known as: VITAMIN D2 Instructions: Take 1 capsule (50,000 Units total) by mouth once a week. Refill: 0 Spiriva Respimat 2.5 MCG/ACT aerosol solution Generic drug: Tiotropium [place] Monohydrate Instructions: Inhale 2 puffs (5 mcg total) RT Daily. Refill: 0 Medication List START taking these medications Prescription Last Dose and Time given aspirin 81 MG EC tablet Instructions: Take 1 tablet (81 mg total) by mouth in the morning. Indications: Thickening and Hardening of Heart Arteries. Refill: 1 81 mg on November 20, 2022 8:46 AM carvedilol 3.125 MG tablet Commonly known as: COREG Instructions: Take 1 tablet (3.125 mg total) by mouth 2 (two) times a day with Breakfast and Dinner. Dispense: 60 tablet Refill: 1 3.125 mg on November 20, 2022 8:45 AM clopidogrel 75 MG tablet Commonly known as: PLAVIX Instructions: Take 1 tablet (75 mg total) by mouth in the morning for 59 days. Indications: Percutaneous Coronary Intervention, Stroke Due To Limited Blood Flow, Thickening and Hardening of Heart Arteries. Dispense: 59 tablet Refill: 0 75 mg on November 20, 2022 8:46 AM cyclobenzaprine 5 MG tablet Commonly known as: FLEXERIL Instructions: Take 1 tablet (5 mg total) by mouth 3 (three) times a day as needed for muscle spasmsfor up to 3 doses. Dispense: 3 tablet Refill: 0 5 mg on November 18, 2022 1:11 PM gabapentin 100 MG capsule Commonly known as: NEURONTIN Instructions: Take 2 capsules (200 mg total) by mouth 3 (three) times a day for 3 doses. Dispense: 6 capsule Refill: 0 200 mg on November 20, 2022 8:46 AM glipiZIDE 5 MG tablet Commonly known as: GLUCOTROL Instructions: Take 1 tablet (5 mg total) by mouth in the morning. Indications: Type 2 Diabetes. Dispense: 30 tablet Refill: 1 5 mg on November 20, 2022 8:46 AM nicotine 21 MG/24HR Commonly known as: NICODERM CQ Instructions: Place 1 patch (21 mg total) on the skin in the morning for 3 doses. Dispense: 3 patch Refill: 0 21 mg on November 20, 2022 9:00 AM rosuvastatin 40 MG tablet Commonly known as: CRESTOR Instructions: Take 1 tablet (40 mg total) by mouth in the morning. Dispense: 30 tablet Refill: 0 40 mg on November 20, 2022 8:47 AM tamsulosin 0.4 MG capsule Commonly known as: FLOMAX Instructions: Take 1 capsule (0.4 mg total) by mouth After Breakfast. Dispense: 30 capsule Refill: 0 0.4 mg on November 20, 2022 8:46 AM CHANGE how you take these medications Prescription Last Dose and Time given melatonin tablet What changed: how much to take Instructions: Take 2 tablets (2 mg total) by mouth nightly. Dispense: 3 tablet Refill: 0 9 mg on November 19, 2022 8:00 PM CONTINUE taking these medications Prescription Last Dose and Time given Brinzolamide-Brimonidine 1-0.2 % suspension Instructions: Administer 1 drop into both eyes 3 (three) times a day. Refill: 0 budesonide-formoterol 160-4.5 MCG/ACT inhaler Commonly known as: SYMBICORT Instructions: Inhale 2 puffs RT 2 (two) times a day. Refill: 0 cabergoline 0.5 MG tablet Commonly known as: DOSTINEX Instructions: Take 0.5 tablets (0.25 mg total) by mouth 2 (two) times a week. Refill: 0 carboxymethylcellulose solution Commonly known as: REFRESH PLUS Instructions: Apply 1 drop (0.05 mL total) to both eyes 4 (four) times a day as needed for dry eyes. Refill: 0 ergocalciferol 1.25 MG (32479 UT) capsule Commonly known as: VITAMIN D2 Instructions: Take 1 capsule (50,000 Units total) by mouth once a week. Refill: 0 Spiriva Respimat 2.5 MCG/ACT aerosol solution Generic drug: Tiotropium [place] Monohydrate Instructions: Inhale 2 puffs (5 mcg total) RT Daily. Refill: 0 DISCHARGE ORDERS .avs .avs VITAL SIGNS (Retired) Vitals (last 3 days) Date/Time Temp Pulse Resp BP SpO2 Weight 11/20/22 0845 -- 64 -- -- -- -- 11/20/22 0727 97.7 ??F (36.5 ??C) 50 16 120/72 95 % -- 11/19/22 1925 98 ??F (36.7 ??C) 59 18 120/68 97 % -- 11/19/22 1645 -- 58 -- 115/69 94 % -- 11/19/22 0800 97.4 ??F (36.3 ??C) 61 18 133/68 94 % -- 11/18/22 1932 97.8 ??F (36.6 ??C) 71 16 144/75 93 % -- 11/18/22 1649 -- 58 -- 111/67 -- -- 11/18/22 0839 98.1 ??F (36.7 ??C) 80 18 140/72 97 % -- 11/17/22 1920 98.2 ??F (36.8 ??C) 60 18 97/53 90 % -- 11/17/22 1704 -- 58 -- 122/72 -- -- 11/17/22 0919 97.7 ??F (36.5 ??C) 63 18 127/75 93 % -- EXAM ON DAY OF DISCHARGE General: Patient in no acute distress, awake, alert, able to follow commands and makes needs known Head: Atrauamtic/Normocephalic Ears: Hearing grossly normal Cardiac: regular rate rhythm Respiratory: Clear to auscultation anteriorly, moderate respiratory effor Abdomen: Soft, Non tender non distended, bowel sounds audible Extremities: No signs of cyanosis, clubbing nor edema Skin: No rashes no ulcers on visible skin Neuro: alert, oriented Psych: mood and affect appropriate DIET: As tolerated, per Driver Manager recommendations Dietary Orders (From admission, onward) Start Ordered 10/29/22 1700 Nutritional supplement Oral 3 times daily with meals Comments: Send vanilla ensure high protein TID End/Expires: Until Specified Question Answer Comment Administration Route: Oral Place order in third constitution party system. Done 10/29/22 1346 10/28/22 2112 Adult Diet Regular; 6 Soft & Bite-Sized (NDD III); 0 Thin (All Liquids) Diet effective now End/Expires: Until Specified References: [employer] Website Question Answer Comment Diet Type: Regular Diet Texture: 6 Soft & Bite-Sized (NDD III) Liquid Consistency: 0 Thin (All Liquids) Place order in third constitution party system. Done 10/28/222110 ACTIVITY:As tolerated per therapist and roofing contractor recommendations Physical Activity: Not on file CONDITION AT TIME OF DISCHARGE: Stable RECOMMENDED FOLLOW-UP: With PCP IN 1-2 WEEKS Discharge Destination: SNF/SNU Primary Caregiver Post Discharge: FUNCTIONAL STATUS AT DISCHARGE Physical Therapy: Discharge Summary PT Current Functional Status: Mr. Mann functional status as follows: POSITIONING: requires tilt in space w/c for trunk, head support, positioning. Half lap tray on left with gel heel protector to assist with left UE positioning. SITTING BALANCE: static sitting at edge of mat: max/total assist initially to control push left, retropulsion. With support and cues, can hold at times with mod assist for a few seconds but unable to maintain prolonged time BED MOBILITY: Sit to/from supine with total assist of two for lift assist at trunk and LE's. Pt with painful left groin and back and resists movement at times. Increased education for pt to assist with right side vs pushing. Rolling to left with use of grab bar: min/mod assist to complete motion. To left with max/total assist for left side assist. Use of draw sheet for support due to left shoulder and groin pain with movement. TRANSFERS Sit to/from stand from edge of sweetie-mat with uses of grab bar on right, sheet support under hips. Total assist of 3 to obtain full upright stance. Max left knee block, pt maintains right knee in flexed position. Pushes left with max/total assist to obtain midline positioning. Stand pivot : not safe to attempt. Use of cee w/c to/from bed Trialed use of transfer board w/c to level mat: draw sheet assist, max/total of 3 for left leg block, trunk control due to pushes left and posterior. Car transfer: not safe to attempt GAIT Unsafe to attempt ambulation 10, 50',150'. Static stance from edge of mat as noted above: stood grossly 60 seconds with max/total assist of 3. Ambulates 10' on compliant surfaces : not safe to attempt Unsafe to retrieve object from floor STAIRS Ascends/descends curb : not safe to attempt Acscends/descends 4, 12 steps unsafe to attempt at this time WHEELCHAIR MOBILITY Pt requires tilt in space w/c for upright positioning support, trunk control, head support. Left half lap tray and use of gel heel protector to assist with maintaining positioning. Use of heel protectors at bilateral knee to control pressure on fibular heads. Dependent for up to 150' OUTCOME MEASURES: AGITATED BEHAVIOR SCALE 17 POSTURAL ASSESSMENT OF STROKE : Mr. Chaparro will discharge 11/20/22 to SNF. Weight Bearing Status: Full - No restrictions throughout Patient needs assistance with the following: Balance; Negotiating stairs; Sitting balance; Walking and/or mobility; Negotiating ramps or curbs; Positioning; Rolling; Use of ambulatory device; Wheelchair management PT Offset Lithographic 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 Goals: Care Score Legend 1 Dependent 2 Substantial/maximal assistance 3 Partial/moderate assistance 4 Supervision or touching assistance 5 Setup or clean-up assistance 6 Independent 7 Patient refused 9 N/A 10 Not attempted due to environmental limitations 88 Not attempted due to medical condition or safety concern Goal on Admission Admission Status Discharge Status Car Transfer Reason if not Attempted: Safety concerns Car Transfer - CARE Score: 88 Car Transfer - CARE Score: 88 (10/29/221746 : Irlanda Sher PT)Car Transfer - CARE Score: 88 (11/19/221510 : Parul Eduardo, PT) Walk 10 Feet Reason if not Attempted: Safety concerns Walk 10 Feet - CARE Score: 88 Walk 10 Feet - CARE Score: 88 (10/29/221746 : Irlanda Sher PT)Walk 10 Feet - CARE Score: 88 (11/19/221510 : Parul Eduardo, PT) Walk 50 Feet with Two Turns Reason if not Attempted: Safety concerns Walk 50 Feet with Two Turns - CARE Score: 88 Walk 50 Feet with Two Turns - CARE Score: 88 ( : Irlanda Sher PT) Walk 50 Feet with Two Turns - CARE Score: 88 (11/19/221510 : Lida Eduardo PT) Walk 150 Feet Reason if not Attempted: Safety concerns Walk 150 Feet - CARE Score: 88 Walk 150 Feet - CARE Score: 88 (10/29/221746 : Irlanda Sher PT) Walk 150 Feet - CARE Score: 88 (11/19/221510 : Parul Eduardo PT) Walking 10 Feet on Uneven Surfaces Reason if not Attempted: Safety concerns Walking 10 Feet on Uneven Surfaces - CARE Score: 88 Walking 10 Feet on Uneven Surfaces - CARE Score: 88 (10/29/221746 : Irlanda Sher PT) Walking 10 Feet on Uneven Surfaces - CARE Score: 88 (11/19/221510 : Parul Eduardo PT) 1 Step (Curb) Reason if not Attempted: Safety concerns 1 Step (Curb) - CARE Score: 88 1 Step (Curb) - CARE Score: 88 (10/29/221746 : Irlanda Sher PT) 1 Step (Curb) - CARE Score: 88 (11/19/221510 : Parul Eduardo PT) 4 Steps Reason if not Attempted: Safety concerns 4 Steps - CARE Score: 88 4 Steps - CARE Score: 88 (10/29/221746 : Irlanda Sher PT) 4 Steps -CARE Score: 88 (11/19/221510 : Parul Eduardo PT) 12 Steps Reason if not Attempted: Safety concerns 12 Steps - CARE Score: 88 12 Steps - CARE Score: 88 (10/29/221746 : Irlanda Sher PT) 12 Steps - CARE Score: 88 (11/19/221510 : Parul Eduardo PT) Picking Up Object Reason if not Attempted: Safety concerns Picking Up Object - CARE Score: 88 Picking Up Object - CARE Score: 88 (10/29/221746 : Irlanda Sher PT) Picking Up Object - CARE Score: 88 (11/19/221510 : Parul Eduardo PT) Wheel 50 Feet with Two Turns Physical Assistance Level: Total assistance Reason if not Attempted: Safety concerns Wheel 50 Feet with Two Turns - CARE Score: 88 Type of Wheelchair/Scooter: Manual Wheel 50 Feet with Two Turns - CARE Score: 88 (10/29/221746 : Irlanda Sher PT) Wheel 50 Feet with Two Turns - CARE Score: 1 (11/19/221510 : Parul EduardoPT) Wheel 150 Feet Physical Assistance Level: Total assistance Reason if not Attempted: Safety concerns Wheel 150 Feet - CARE Score: 88 Type of Wheelchair/Scooter: Manual Wheel 150 Feet - CARE Score: 88 (10/29/221746 : Irlanda Sher, PT) Wheel 150 Feet - CARE Score: 1 (11/19/22 1511 : Parul Eduardo, PT) PT 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 Lithographic 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 Goals Flowsheet Row Most Recent Value Other PT 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 Goals Other Goals - Offset Lithographic 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 Residential 1, Offset Lithographic 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 2, Offset Lithographic 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 3, Residential 4 Filed on: 10/29/2022 1749 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 [employer]ographic 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 Goal 1 w/c to/from level surface with transfer board and mod assist Filed on: 11/19/2022 1512 Other Residential Goal 1 Status Not Achieved Filed on: 11/19/2022 1512 Other Residential Goal 2 sit to stand to hemiaide and mod assist of two Filed on: 11/19/2022 1512 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 Lithographic 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 Goal 2 Status Not Achieved Filed on: 11/19/2022 1512 Other Residential Goal 3 tolerate upright position in regular w/c vs tilt in space w/c when out of bed Filed on: 11/19/2022 1512 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 [employer]ographic 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 Goal 3 Status Not Achieved Filed on: 11/19/2022 1512 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 Goal 4 sit to/from supine with mod assist. Filed on: 11/19/2022 151 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 [employer]ographic 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 Goal 4 Status Not Achieved Filed on: 11/19/2022 1512 Occupational Therapy Discharge Summary OT Current Functional Status: Mr Chaparro's current functional status is as follows: EATING: supervision, cues for scanning to the left; occasional spilling especially on left side of mouth ORAL HYGIENE: supervision TOILETING: dependent, assist for all aspects BATHING: max assist; pt is able to assist with washing chest and face; assist needed for all other aspects UB DRESSING: max assist; pt assists with donning shirt over his head LB DRESSING: dependent, bed level; assist for all aspects PUTTING ON/TAKING OFF FOOTWEAR: dependent ROLL LEFT AND RIGHT: dependent for rolling to the right; mod/max assist for rolling to the left SIT TO LYING: dependent LYING TO SITTING: dependent SIT TO STAND: dependent BED TO CHAIR TRANSFER: dependent, cee lift, assist of 2 person TOILET TRANSFER: NT b/c of safety concerns with balance Mr Chaparro is being discharged to SNF. Continued intensive OT recommended to maximize functional independence and safety. He presents with flaccid L UE--no AROM noted. He frequently reports pain in L UE during all movements during ADLs and transfers. Mr Chaparro presents with left inattention. He needs total assist for postioning in tilt in space wheelchair and is dependent for unsupported sitting balance. 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: Care Score Legend 1 Dependent 2 Substantial/maximal assistance 3 Partial/moderate assistance 4 Supervision or touching assistance 5 Setup or clean-up assistance 6 Independent 7 Patient refused 9 N/A 10 Not attempted due to environmental limitations 88 Not attempted due to medical condition or safety concern Goal on Admission Admission Status Discharge Status Eating Assistance Needed: Physical assistance Physical Assistance Level: 25% or less Eating - CARE Score: 3 Eating - CARE Score: 3 (10/28/222352 : Jessica Mccann RN) Eating - CARE Score:4 (11/19/22 1017 : Luke Robertson OT) Oral Hygiene Assistance Needed: Set-up / clean-up Physical Assistance Level: 25% or less Reason if not Attempted: Activity not applicable Oral Hygiene - CARE Score: 3 Oral Hygiene - CARE Score: 3 (10/28/222352 : Jessica Mccann RN) Oral Hygiene - CARE Score: 4 (11/19/22 1017 : Luke Robertson OT) Toileting Hygiene Assistance Needed: Physical assistance Physical Assistance Level: 51%-75% Toileting Hygiene - CARE Score: 2 Toileting Hygiene - CARE Score: 2 (10/28/222352 : Jessica Mccann RN) Toileting Hygiene - CARE Score: 1 (11/19/22 1017 : Luke Robertson OT) Shower/Bathe Self Assistance Needed: Physical assistance Physical Assistance Level: Total assistance Reason if not Attempted: Activity not applicable Shower/Bathe Self - CARE Score: 1 Shower/Bathe Self - CARE Score: 1 (10/29/22 1021 : Luke Robertson OT) Shower/Bathe Self - CARE Score: 2 (11/19/22 1017 : Luke Robertson OT) Upper Body Dressing Assistance Needed: Physical assistance Physical Assistance Level: 25% or less Reason if not Attempted: Activity not applicable Upper Body Dressing - CARE Score: 3 Upper Body Dressing - CARE Score: 3 (10/28/222352 : Jessica Mccann RN) Upper Body Dressing - CARE Score: 2 (11/19/22 1017 : Luke Robertson OT) Lower Body Dressing Assistance Needed: Physical assistance Physical Assistance Level: 51%-75% Reason if not Attempted: Activity not applicable Lower Body Dressing - CARE Score: 2 Lower Body Dressing - CARE Score: 2 (10/28/222352 : Jessica Mccann RN) Lower Body Dressing - CARE Score: 1 (11/19/227 : Luke Robertson OT) Putting On/Taking Off Footwear Assistance Needed: Physical assistance Physical Assistance Level: 51%-75% Reason if not Attempted: Activity not applicable Putting On/Taking Off Footwear - CARE Score: 2 Putting On/Taking Off Footwear - CARE Score: 2 (10/28/222352 : Jessica Mccann RN) Putting On/Taking Off Footwear - CARE Score: 1 (11/19/227 : MargaretA. Marcelo OT) Roll Left and Right Assistance Needed: Physical assistance Physical Assistance Level: Total assistance Roll Left and Right - CARE Score: 1 Roll Left and Right - CARE Score: 1 (10/29/22 1021 : Luke Robertson OT) Roll Left and Right - CARE Score: 1 (11/19/22 1510 : Parul Eduardo, PT) Sit to Lying Assistance Needed: Physical assistance Physical Assistance Level: 26%-50% Reason if not Attempted: Activity not applicable Sit to Lying - CARE Score: 3 Sit to Lying - CARE Score: 3 (10/28/222352 : Jessica Mccann RN) Sit to Lying - CARE Score: 1 (11/19/22 1510 : Parul Eduardo PT) Lying to Sitting on Side of Bed Assistance Needed: Physical assistance Physical Assistance Level: 51%-75% Reason if not Attempted: Activity not applicable Lying to Sitting on Side of Bed - CARE Score: 2 Lying to Sitting on Side of Bed - CARE Score: 2 (10/28/222352 : Jessica Mccann RN) Lying to Sitting on Side of Bed - CARE Score: 1 (11/19/22 1510 : Parul Eduardo PT) Sit to Stand Assistance Needed: Physical assistance Physical Assistance Level: 51%-75% Comment: activity not attempted Reason if not Attempted: Medical concerns Sit to Stand - CARE Score: 2 Sit to Stand - CARE Score: 2 (10/28/222352 : Jessica Mccann RN) Sit to Stand - CARE Score: 1 (11/19/220 : Parul Eduardo PT) Chair/Oln-ja-Lvndw Transfer Assistance Needed: Physical assistance Physical Assistance Level: 26%-50% Reason if not Attempted: Medical concerns Chair/Vpd-uq-Lfwym Transfer - CARE Score: 3 Chair/Wvu-qb-Chtyc Transfer - CARE Score: 3 (10/28/222352 : Jessica Mccann RN) Chair/Byf-xc-Cijst Transfer - CARE Score: 1 (11/19/22 1510 : Parul Eduardo PT) Toilet Transfer Assistance Needed: Physical assistance Physical Assistance Level: Total assistance Reason if not Attempted: Medical concerns Toilet Transfer - CARE Score: 88 Toilet Transfer - CARE Score: 88 (10/29/22 1021 : Luke Robertson OT) Toilet Transfer - CARE Score: 88 (11/19/22 1017 : Luke Robertson OT) Speech Therapy 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 Chaparro is a 67 year old male referred to speech therapy for evaluation and treatment following recent hospitalization with a diagnosis of CVA. Patient presented to the hospital initially on 10/12/22 due to a peritonsillar abscess, reporting dysphagia symptoms with liquids and solids. While there, he developed left sided weakness with confirmation of CVA. He was living with his sister prior to admission and was independent with ADLs and IADLs and driving. 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 Current functional status at discharge is as follows: PROGRESS 11/02/22: Evaluation was completed on 10/29/22. All goals remain appropriate to continue at this time due to limited number of sessions thus far. Patient is distracted by pain and discomfort when up in wheelchair during therapy sessions. He requires frequent encouragement for task persistence. Patient requires assistance with tray set-up and at least some degree of supervision/assistance with feeding due to left visual impairment and left side weakness. PROGRESS 11/06/22: Patient is making good progress towards his speech therapy goals. He has participated in discussion this week regarding stroke risk factors and prevention. He has shown improved ability to solve basic problem-solving situations. He is using compensatory strategies with minimal cueing to locate information on the left side for visual matching tasks. Patient is managing current diet well and would benefit from further assessment to determine safety of upgraded solid textures at this time. PROGRESS 11/12/22: Mr. Chaparro is seen for 45 minutes of speech therapy daily with focus on dysphagia management, functional communication and cognitive retraining. He is making progress in all goaled areas. Trials of regular consistency food items have been completed this week. Patient is recalling safe swallow strategies and using them with minimal-moderate assistance depending on comfort and pain level. Patient's attention during meals and structured tasks is improving, however, when structure is not imposed it is very difficult for him to focus due to both internal and external events. Improvements noted in recall of daily events and therapy information. Problem solving and reasoning continue to require minimal assistance. He will need 24 hour assistance with ADLs and IADLS at discharge. PROGRESS 11/16/22: Mr. Chaparro continues to make progress in therapy. Improvement noted in his ability to maintain wakefulness for participation in therapy tasks. He continues to be distracted by frequent pain and discomfort while in the wheelchair. Patient has participated in continued trials of regular texture food items. He continues to present with pocketing of food on the left and lingual residue; however, less oral spillage is noted. Current diet of Soft and Bite Sized remains the safest and least restrictive diet at this time. Some improveme; nt noted in functional problem-solving/reasoning skills for basic daily tasks. Patient is able to remember familiar people and daily therapy events at least 75% of the time. SWALLOWING: Current diet: SOFT & BITE SIZED with THIN LIQUIDS (IDDSI 6/0) Oral pocketing and lingual residue noted. Oral care is necessary following each meal. COMMUNICATION: COMPREHENSION- SUPERVISION. Patient is able to comprehend information regarding basic needs over 90% of the time. Increased difficulty noted with comprehension of complex or abstract information. EXPRESSION- SUPERVISION. Patient is able to express information regarding basic needs over 90% of the time. Increased difficulty noted with comprehension of complex or abstract information. Patient presents with mild dysarthria but mostly intelligible speech. COGNITION: PROBLEM-SOLVING- MINIMAL ASSISTANCE. Patient is able to solve routine problems at least 75% of the time. Improvement noted in ability to provide appropriate responses for basic verbal problem-solving situations. Increased assistance required for multi-step sequencing and mathematical reasoning tasks. Patient is highly distracted by internal and external factors. MEMORY: MINIMAL ASSISTANCE. Patient is able to recognize and remember people, routines, and requests at least 75% of the time. SOCIAL INTERACTION: SUPERVISION. Improvement noted in wakefulness with increased participation in therapy tasks. DISCHARGE PLAN/RECOMMENDATION: Mr. Chaparro will be discharged to SNF on 11/20/22. He will benefit from continued speech therapy services to further address functional communication and cognitive skills for increased safety and independence in his discharge setting; also to address safety of diet upgrade to regular texture. The Patient: [ ]is able to state 2 risk factors without VCs prior to discharge [X ]requires cues to recall 2 stroke risk factors [ ] Is unable to state stroke risk factors due to communication or cognitive deficits Residential Goals: Goal Discharge Status Level of Assistance to Meet Problem Solving: Min assist (10-24%) Problem Solving Details: Improve functional problem-solving skills to minimal assistance to solve routine problems at least 75% of the time. Problem Solving Expected Achievement Date: 11/25/22 Level of Assistance to Meet Memory: Min assist (10-24%) Memory Details: Improve functional memory skills to minimal assistance to recognize and remember people, routines, and requests at least 75% of the time. Memory Expected Achievement Date: 11/25/22 Swallowing Details: Safely manage regular texture solids and thin liquids with no clinical signs ofdysphagia. Swallowing Expected Achievement Date: 11/25/22 CC: No primary care provider on file. TIME SPENT ON DISCHARGE: more than 30 minutes documented in this encounter Discharge Instructions * Discharge Instr - CM* TRESA Grier - 11/17/2022 2:05 PM CDT Coccyx wound is healing well, please follow the orders from wound care nurse below to continue the healing process and follow up with your primary care provider as instructed. Wound care instructions: Apply zinc/menthol ointment to skin twice a day and as needed soiling/saturation Community Providers of Pain Management Resources have been provided to you by your Film Examiner. Please reference these resources and attend any appointments scheduled for you. Transportation Arrangements: Company Name: [employer] Medical Equipment / Orth[employer] Additional Information: Facility to order Please arrive for all appointments 15-20 minutes prior to appointment time. Remember to bring photoID, insurance cards and a list of current medications (including any vitamins, herbs, etc.) you aretaking. It is also beneficial to bring a copy of your discharge paperwork. Proper follow up medicalcare is vital to the recovery process, so please do your best to keep all appointments scheduled. If unable to make scheduled appointments, please call the provider and reschedule. * Discharge Instr-PT* Parul Eduardo, PT - 11/19/2022 3:06 PM CDT Current level of help needed at this time: Transfers: You will need a mechanical lift to complete a transfer. Walking: You are not able to walk. Wheelchair Use: You need someone to push your wheelchair all the time. Stair Climbing: You will need to use a ramp. * Discharge Instr-OT* Luke Robertson, OT - 11/19/2022 12:43 PM CDT Current functional status and/or level of assist required for Activities of Daily Living upon discharge: Oral Care: you can do this with supervision and assistance to locate items on your left. Dressing: You need assistance for dressing. You need to put pants on/off while in bed for safety. Bathing: No showers yet because of balance. You need assistance for sponge bathing while in bed. Toileting: You need assistance for all aspects of toileting. Precautions: Vision: Remember to look to your left when performing any activities. * Discharge Instr-OIL GAS AND PIPE TESTER* [facility] - 11/19/2022 12:21 PM CDT Swallowing Recommendations: Current Diet: IDDSI 6- Soft & Bite-Sized (SB6): Soft, tender and moist but with no thin liquid leaking or dripping from the food. Chewing required. Pieces no bigger than the size of a thumbnail for adults (about the width of a standard dinner fork). Food completely squashes when pressed firmly with a fork and does not regain shape when fork is removed. and IDDSI 0- Thin Liquids - all liquids- no restrictions (Tn0): Flows like water. Syringe Flow Test- Less than 1 ml remaining in a 10 ml syringe after 10 sec of flow.. Swallow Safety / Strategies: Check that your mouth is clear after eating, Eat and drink slowly. Be sure to swallow each bite or drink before taking your next bite of food or drink, Sit all the way upwhen eating and drinking, Take small bites of food, and Take small sips of liquid. Level of Supervision at Meals: You need someone to remind you to follow your safe swallowing strategies. Communication: Your primary mode of communication is verbal. Current status and/or level of assistance required for Communication and Thinking skills on discharge: Understanding: You will need someone to help you understand the lengthy or complex spoken information, instructions and conversation. Reading: You will need someone to help you understand detailed written information and instructionssuch as a calendar, daily schedule, menu, prescription label and You will need someone to help you understand lengthy or complex written information such as books, newspapers, magazines. Communication: You will need someone to help you communicate lengthy and complex needs, thoughts and information. Completing Tasks: You will need someone to help you complete complex tasks such as meal preparation, following daily routines, managing finances. Memory: You will need someone to help you remember information but are able to use written reminders with assistance. Noise / Stimulation: You do best with a low stimulation environment (lights off, TV off, closed door, speaking softly, one person in room at a time). Safety Risks/ Precautions: Aspiration: Follow the diet recommended by your speech therapist, Follow swallow strategies recommended by your speech therapist, and Perform daily mouth care to prevent bacteria in the mouth from entering the lungs. * Additional Instructions* Luke Robertson OT - 11/19/2022 12:43 PM CDT What to do for changes in behavior: After a hospitalization, different conditions can produce new and disturbing behaviors. Often timesthis may be a response to basic needs not being met, frustration or confusion. This can be distressing to both the patient and their family and friends. To help keep him/her safe and calm, consider these suggestions: Make sure all physical needs are met including hunger, thirst, and bathroom needs. Keep lights, noise and movement low. Attempt to use natural light when possible. Limit number of people in the room. Establish routines and keep them consistent. Minimize changes to daily schedule. Establish good sleep routines. Schedule rest breaks during the day. When approaching their personal space, communicate what you will do to assist them prior to approaching their personal space. As a caregiver, take care of yourself. If you are feeling frustrated or overwhelmed, consider seeking assistance from professionals - (primary care physician, continuous pillowcase cutter, mental health professionals, local support groups). If you see changes in behavior that might mean they are becoming agitated or restless. This can be observed as - changes in breathing, facial expressions or body language. If so, consider these tips: Stay calm and control all aspects of your voice including tone, volume and pace. Try not to raise your voice. Reassure them that they are safe. Do not challenge a feeling, argue, or confront. Listen carefully. Communicate in simple, clear sentences and limit choices. Choose your words carefully. Do not use sarcasm or humor. Try redirection (different topic; changing rooms) or encouragement to attend to a reasonable and safe activity they may enjoy. documented in this encounter Medications at Time of Discharge Brinzolamide-Brimonid ine 1-0.2 % suspension Administer 1 drop into both eyes 3 (three) times a day. budesonide-formoterol (SYMBICORT) 160-4.5 MCG/ACT inhaler Inhale 2 puffs RT 2 (two) times a day. cabergoline (DOSTINEX) 0.5 MG tablet Take 0.5 tablets (0.25 mg total) by mouth 2 (two) times a week. carboxymethylcellulos e (Carboxymethylcellulo se Sodium) solution Apply 1 drop (0.05 mL total) to both eyes 4 (four) times a day as needed for dry eyes. cyclobenzaprine (FLEXERIL) 5 MG tablet Take 1 tablet (5 mg total) by mouth 3 (three) times a day as needed for muscle spasms for up to 3 doses. 3 tablet 3 ergocalciferol (vitamin D2, Ergocalciferol,) 1.25 MG (14176 UT) capsule Take 1 capsule (50,000 Units total) by mouth once a week. melatonin tablet Take 2 tablets (2 mg total) by mouth nightly. 3 tablet 3 Tiotropium [place] Monohydrate (Spiriva Respimat) 2.5 MCG/ACT aerosol solution Inhale 2 puffs (5 mcg total) RT Daily. aspirin 81 MG EC tabletIndications:Cor onary Arteriosclerosis Take 1 tablet (81 mg total) by mouth in the morning. Indications: Thickening and Hardening of Heart Arteries. 1 3 11/20/19 24 carvedilol (COREG) 3.125 MG tablet Take 1 tablet (3.125 mg total) by mouth 2 (two) times a day with Breakfast and Dinner. 60 tablet 1 3 11/19/19 24 clopidogrel (PLAVIX) 75 MG tabletIndications:Cor onary Arteriosclerosis,Isch emic Stroke,Percutaneous Coronary Intervention Take 1 tablet (75 mg total) by mouth in the morning for 59 days. Indications: Percutaneous Coronary Intervention, Stroke Due To Limited Blood Flow, Thickening and Hardening of Heart Arteries. 59 tablet 3 01/19/20 23 gabapentin (NEURONTIN) 100 MG capsule Take 2 capsules (200 mg total) by mouth 3 (three) times a day for 3 doses. 6 capsule 3 11/21/19 23 glipiZIDE (GLUCOTROL) 5 MG tabletIndications:Typ e 2 Diabetes Mellitus Take 1 tablet (5 mg total) by mouth in the morning. Indications: Type 2 Diabetes. 30 tablet 1 3 11/20/19 24 nicotine (NICODERM CQ) 21 MG/24HR Place 1 patch (21 mg total) on the skin in the morning for 3 doses. 3 patch 3 11/24/19 23 rosuvastatin (CRESTOR) 40 MG tablet Take 1 tablet (40 mg total) by mouth in the morning. 30 tablet 3 11/20/19 24 tamsulosin (FLOMAX) 0.4 MG capsule Take 1 capsule (0.4 mg total) by mouth After Breakfast. 30 capsule 3 11/20/19 24 documented as of this encounter Progress Notes * Carolina Garibay MD - 11/20/2022 11:36 AM CDT PM&R PROGRESS NOTE This is Face to Face Visit note Esperanza Chaparro is a 67 y.o. male patient. DC SNF today with further therapy at long-term as family not able to provide required care at this time. Need buttermaker helper placement REVIEW OF FUNCTIONAL STATUS Physical Therapy: Discharge Summary PT Current Functional Status: Mr. Chaparro's functional status as follows: POSITIONING: requires tilt in space w/c for trunk, head support, positioning. Half lap tray on left with gel heel protector to assist with left UE positioning. SITTING BALANCE: static sitting at edge of mat: max/total assist initially to control push left, retropulsion. With support and cues, can hold at times with mod assist for a few seconds but unable to maintain prolonged time BED MOBILITY: Sit to/from supine with total assist of two for lift assist at trunk and LE's. Pt with painful left groin and back and resists movement at times. Increased education for pt to assist with right side vs pushing. Rolling to left with use of grab bar: min/mod assist to complete motion. To left with max/total assist for left side assist. Use of draw sheet for support due to left shoulder and groin pain with movement. TRANSFERS Sit to/from stand from edge of sweetie-mat with uses of grab bar on right, sheet support under hips. Total assist of 3 to obtain full upright stance. Max left knee block, pt maintains right knee in flexed position. Pushes left with max/total assist to obtain midline positioning. Stand pivot : not safe to attempt. Use of cee w/c to/from bed Trialed use of transfer board w/c to level mat: draw sheet assist, max/total of 3 for left leg block, trunk control due to pushes left and posterior. Car transfer: not safe to attempt GAIT Unsafe to attempt ambulation 10, 50',150'. Static stance from edge of mat as noted above: stood grossly 60 seconds with max/total assist of 3. Ambulates 10' on compliant surfaces : not safe to attempt Unsafe to retrieve object from floor STAIRS Ascends/descends curb : not safe to attempt Acscends/descends 4, 12 steps unsafe to attempt at this time WHEELCHAIR MOBILITY Pt requires tilt in space w/c for upright positioning support, trunk control, head support. Left half lap tray and use of gel heel protector to assist with maintaining positioning. Use of heel protectors at bilateral knee to control pressure on fibular heads. Dependent for up to 150' OUTCOME MEASURES: AGITATED BEHAVIOR SCALE 17 POSTURAL ASSESSMENT OF STROKE : Mr. Chaparro will discharge 11/20/22 to SNF. Weight Bearing Status: Full - No restrictions throughout Patient needs assistance with the following: Balance; Negotiating stairs; Sitting balance; Walking and/or mobility; Negotiating ramps or curbs; Positioning; Rolling; Use of ambulatory device; Wheelchair management PT Offset Lithographic 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 Goals: Care Score Legend 1 Dependent 2 Substantial/maximal assistance 3 Partial/moderate assistance 4 Supervision or touching assistance 5 Setup or clean-up assistance 6 Independent 7 Patient refused 9 N/A 10 Not attempted due to environmental limitations 88 Not attempted due to medical condition or safety concern Goal on Admission Admission Status Discharge Status Car Transfer Reason if not Attempted: Safety concerns Car Transfer - CARE Score: 88 Car Transfer - CARE Score: 88 (10/29/22 1747 : Irlanda Sher, PT)Car Transfer - CARE Score: 88 (11/19/221510 : Parul Eduardo PT) Walk 10 Feet Reason if not Attempted: Safety concerns Walk 10 Feet - CARE Score: 88 Walk 10 Feet - CARE Score: 88 (10/29/221746 : Irlanda Sher PT)Walk 10 Feet - CARE Score: 88 (11/19/221510 : Parul Eduardo PT) Walk 50 Feet with Two Turns Reason if not Attempted: Safety concerns Walk 50 Feet with Two Turns - CARE Score: 88 Walk 50 Feet with Two Turns - CARE Score: 88 ( : Irlanda Sher PT) Walk 50 Feet with Two Turns - CARE Score: 88 (11/19/221510 : Lida Eduardo PT) Walk 150 Feet Reason if not Attempted: Safety concerns Walk 150 Feet - CARE Score: 88 Walk 150 Feet - CARE Score: 88 (10/29/221746 : Irlanda Sher PT) Walk 150 Feet - CARE Score: 88 (11/19/221510 : Parul Eduardo PT) Walking 10 Feet on Uneven Surfaces Reason if not Attempted: Safety concerns Walking 10 Feet on Uneven Surfaces - CARE Score: 88 Walking 10 Feet on Uneven Surfaces - CARE Score: 88 (10/29/221746 : Irlanda Sher PT) Walking 10 Feet on Uneven Surfaces - CARE Score: 88 (11/19/221510 : Parul Eduardo PT) 1 Step (Curb) Reason if not Attempted: Safety concerns 1 Step (Curb) - CARE Score: 88 1 Step (Curb) - CARE Score: 88 (10/29/221746 : Irlanda Sher PT) 1 Step (Curb) - CARE Score: 88 (11/19/221510 : Parul Eduardo PT) 4 Steps Reason if not Attempted: Safety concerns 4 Steps - CARE Score: 88 4 Steps - CARE Score: 88 (10/29/221746 : Irlanda Sher PT) 4 Steps -CARE Score: 88 (11/19/221510 : Parul Eduardo PT) 12 Steps Reason if not Attempted: Safety concerns 12 Steps - CARE Score: 88 12 Steps - CARE Score: 88 (10/29/221746 : Irlanda Sher PT) 12 Steps - CARE Score: 88 (11/19/22 1511 : Parul Eduardo PT) Picking Up Object Reason if not Attempted: Safety concerns Picking Up Object - CARE Score: 88 Picking Up Object - CARE Score: 88 (10/29/221746 : Irlanda Sher PT) Picking Up Object - CARE Score: 88 (11/19/22 1511 : Parul Eduardo PT) Wheel 50 Feet with Two Turns Physical Assistance Level: Total assistance Reason if not Attempted: Safety concerns Wheel 50 Feet with Two Turns - CARE Score: 88 Type of Wheelchair/Scooter: Manual Wheel 50 Feet with Two Turns - CARE Score: 88 (10/29/221746 : Irlanda Sher PT) Wheel 50 Feet with Two Turns - CARE Score: 1 (11/19/22 1511 : Parul EduardoPT) Wheel 150 Feet Physical Assistance Level: Total assistance Reason if not Attempted: Safety concerns Wheel 150 Feet - CARE Score: 88 Type of Wheelchair/Scooter: Manual Wheel 150 Feet - CARE Score: 88 (10/29/221746 : Irlanda Sher PT) Wheel 150 Feet - CARE Score: 1 (11/19/22 1511 : Parul Eduardo PT) PT 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 Lithographic 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 Goals Flowsheet Row Most Recent Value Other PT Offset Lithographic 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 Goals Other Goals - Offset Lithographic 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 Residential 1, Residential 2, Offset Lithographic 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 3, Residential 4 Filed on: 10/29/2022 1749 Other Residential Goal 1 w/c to/from level surface with transfer board and mod assist Filed on: 11/19/2022 1512 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 Lithographic 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 Goal 1 Status Not Achieved Filed on: 11/19/2022 1512 Other Residential Goal 2 sit to stand to hemiaide and mod assist of two Filed on: 11/19/2022 1512 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 Lithographic 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 Goal 2 Status Not Achieved Filed on: 11/19/2022 1512 Other Residential Goal 3 tolerate upright position in regular w/c vs tilt in space w/c when out of bed Filed on: 11/19/2022 1512 Other Residential Goal 3 Status Not Achieved Filed on: 11/19/2022 1512 Other Residential Goal 4 sit to/from supine with mod assist. Filed on: 11/19/2022 1512 Other Residential Goal 4 Status Not Achieved Filed on: 11/19/20221511 Occupational Therapy Discharge Summary OT Current Functional Status: Mr Chaparro's current functional status is as follows: EATING: supervision, cues for scanning to the left; occasional spilling especially on left side of mouth ORAL HYGIENE: supervision TOILETING: dependent, assist for all aspects BATHING: max assist; pt is able to assist with washing chest and face; assist needed for all other aspects UB DRESSING: max assist; pt assists with donning shirt over his head LB DRESSING: dependent, bed level; assist for all aspects PUTTING ON/TAKING OFF FOOTWEAR: dependent ROLL LEFT AND RIGHT: dependent for rolling to the right; mod/max assist for rolling to the left SIT TO LYING: dependent LYING TO SITTING: dependent SIT TO STAND: dependent BED TO CHAIR TRANSFER: dependent, cee lift, assist of 2 person TOILET TRANSFER: NT b/c of safety concerns with balance Mr Chaparro is being discharged to SNF. Continued intensive OT recommended to maximize functional independence and safety. He presents with flaccid L UE--no AROM noted. He frequently reports pain in L UE during all movements during ADLs and transfers. Mr Chaparro presents with left inattention. He needs total assist for postioning in tilt in space wheelchair and is dependent for unsupported sitting balance. 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: Care Score Legend 1 Dependent 2 Substantial/maximal assistance 3 Partial/moderate assistance 4 Supervision or touching assistance 5 Setup or clean-up assistance 6 Independent 7 Patient refused 9 N/A 10 Not attempted due to environmental limitations 88 Not attempted due to medical condition or safety concern Goal on Admission Admission Status Discharge Status Eating Assistance Needed: Physical assistance Physical Assistance Level: 25% or less Eating - CARE Score: 3 Eating - CARE Score: 3 (10/28/22 6253 : Jessica Mccann RN) Eating - CARE Score:4 (11/19/22 1017 : Luke Robertson, OT) Oral Hygiene Assistance Needed: Set-up / clean-up Physical Assistance Level: 25% or less Reason if not Attempted: Activity not applicable Oral Hygiene - CARE Score: 3 Oral Hygiene - CARE Score: 3 (10/28/222352 : Jessica Mccann RN) Oral Hygiene - CARE Score: 4 (11/19/22 1017 : Luke Robertson OT) Toileting Hygiene Assistance Needed: Physical assistance Physical Assistance Level: 51%-75% Toileting Hygiene - CARE Score: 2 Toileting Hygiene - CARE Score: 2 (10/28/222352 : Jessica Mccann RN) Toileting Hygiene - CARE Score: 1 (11/19/22 1017 : Luke Robertson OT) Shower/Bathe Self Assistance Needed: Physical assistance Physical Assistance Level: Total assistance Reason if not Attempted: Activity not applicable Shower/Bathe Self - CARE Score: 1 Shower/Bathe Self - CARE Score: 1 (10/29/22 1021 : Luke Robertson OT) Shower/Bathe Self - CARE Score: 2 (11/19/22 1017 : Luke Robertson OT) Upper Body Dressing Assistance Needed: Physical assistance Physical Assistance Level: 25% or less Reason if not Attempted: Activity not applicable Upper Body Dressing - CARE Score: 3 Upper Body Dressing - CARE Score: 3 (10/28/222352 : Jessica Mccann RN) Upper Body Dressing - CARE Score: 2 (11/19/227 : Luke Robertson OT) Lower Body Dressing Assistance Needed: Physical assistance Physical Assistance Level: 51%-75% Reason if not Attempted: Activity not applicable Lower Body Dressing - CARE Score: 2 Lower Body Dressing - CARE Score: 2 (10/28/222352 : Jessica Mccann RN) Lower Body Dressing - CARE Score: 1 (11/19/227 : Luke Robertson OT) Putting On/Taking Off Footwear Assistance Needed: Physical assistance Physical Assistance Level: 51%-75% Reason if not Attempted: Activity not applicable Putting On/Taking Off Footwear - CARE Score: 2 Putting On/Taking Off Footwear - CARE Score: 2 (10/28/222352 : Jessica Mccann RN) Putting On/Taking Off Footwear - CARE Score: 1 (11/19/22 1017 : MargaretA. Robertson, OT) Roll Left and Right Assistance Needed: Physical assistance Physical Assistance Level: Total assistance Roll Left and Right - CARE Score: 1 Roll Left and Right - CARE Score: 1 (10/29/22 1021 : Luke Robertson, OT) Roll Left and Right - CARE Score: 1 (11/19/22 151 : Parul Eduardo PT) Sit to Lying Assistance Needed: Physical assistance Physical Assistance Level: 26%-50% Reason if not Attempted: Activity not applicable Sit to Lying - CARE Score: 3 Sit to Lying - CARE Score: 3 (10/28/222352 : Jessica Mccann RN) Sit to Lying - CARE Score: 1 (11/19/221509 : Parul Eduardo PT) Lying to Sitting on Side of Bed Assistance Needed: Physical assistance Physical Assistance Level: 51%-75% Reason if not Attempted: Activity not applicable Lying to Sitting on Side of Bed - CARE Score: 2 Lying to Sitting on Side of Bed - CARE Score: 2 (10/28/222352 : Jessica Mccann RN) Lying to Sitting on Side of Bed - CARE Score: 1 (11/19/221509 : Parul Eduardo PT) Sit to Stand Assistance Needed: Physical assistance Physical Assistance Level: 51%-75% Comment: activity not attempted Reason if not Attempted: Medical concerns Sit to Stand - CARE Score: 2 Sit to Stand - CARE Score: 2 (10/28/222352 : Jessica Mccann RN) Sit to Stand - CARE Score: 1 (11/19/221509 : Parul Eduardo PT) Chair/Qsm-eq-Nsqpe Transfer Assistance Needed: Physical assistance Physical Assistance Level: 26%-50% Reason if not Attempted: Medical concerns Chair/Qkb-ln-Mppyh Transfer - CARE Score: 3 Chair/Nbs-ij-Qybsn Transfer - CARE Score: 3 (10/28/222352 : Jessica Mccann RN) Chair/Czr-ei-Ulzmn Transfer - CARE Score: 1 (11/19/221509 : Parul Eduardo PT) Toilet Transfer Assistance Needed: Physical assistance Physical Assistance Level: Total assistance Reason if not Attempted: Medical concerns Toilet Transfer - CARE Score: 88 Toilet Transfer - CARE Score: 88 (10/29/22 1021 : Luke Robertson, OT) Toilet Transfer - CARE Score: 88 (11/19/22 1017 : Luke Robertson, OT) Speech Therapy 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 Chaparro is a 67 year old male referred to speech therapy for evaluation and treatment following recent hospitalization with a diagnosis of CVA. Patient presented to the hospital initially on 10/12/22 due to a peritonsillar abscess, reporting dysphagia symptoms with liquids and solids. While there, he developed left sided weakness with confirmation of CVA. He was living with his sister prior to admission and was independent with ADLs and IADLs and driving. 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 Current functional status at discharge is as follows: PROGRESS 11/02/22: Evaluation was completed on 10/29/22. All goals remain appropriate to continue at this time due to limited number of sessions thus far. Patient is distracted by pain and discomfort when up in wheelchair during therapy sessions. He requires frequent encouragement for task persistence. Patient requires assistance with tray set-up and at least some degree of supervision/assistance with feeding due to left visual impairment and left side weakness. PROGRESS 11/06/22: Patient is making good progress towards his speech therapy goals. He has participated in discussion this week regarding stroke risk factors and prevention. He has shown improved ability to solve basic problem-solving situations. He is using compensatory strategies with minimal cueing to locate information on the left side for visual matching tasks. Patient is managing current diet well and would benefit from further assessment to determine safety of upgraded solid textures at this time. PROGRESS 11/12/22: Mr. Chaparro is seen for 45 minutes of speech therapy daily with focus on dysphagia management, functional communication and cognitive retraining. He is making progress in all goaled areas. Trials of regular consistency food items have been completed this week. Patient is recalling safe swallow strategies and using them with minimal-moderate assistance depending on comfort and pain level. Patient's attention during meals and structured tasks is improving, however, when structure is not imposed it is very difficult for him to focus due to both internal and external events. Improvements noted in recall of daily events and therapy information. Problem solving and reasoning continue to require minimal assistance. He will need 24 hour assistance with ADLs and IADLS at discharge. PROGRESS 11/16/22: Mr. Chaparro continues to make progress in therapy. Improvement noted in his ability to maintain wakefulness for participation in therapy tasks. He continues to be distracted by frequent pain and discomfort while in the wheelchair. Patient has participated in continued trials of regular texture food items. He continues to present with pocketing of food on the left and lingual residue; however, less oral spillage is noted. Current diet of Soft and Bite Sized remains the safest and least restrictive diet at this time. Some improveme; nt noted in functional problem-solving/reasoning skills for basic daily tasks. Patient is able to remember familiar people and daily therapy events at least 75% of the time. SWALLOWING: Current diet: SOFT & BITE SIZED with THIN LIQUIDS (IDDSI 6/0) Oral pocketing and lingual residue noted. Oral care is necessary following each meal. COMMUNICATION: COMPREHENSION- SUPERVISION. Patient is able to comprehend information regarding basic needs over 90% of the time. Increased difficulty noted with comprehension of complex or abstract information. EXPRESSION- SUPERVISION. Patient is able to express information regarding basic needs over 90% of the time. Increased difficulty noted with comprehension of complex or abstract information. Patient presents with mild dysarthria but mostly intelligible speech. COGNITION: PROBLEM-SOLVING- MINIMAL ASSISTANCE. Patient is able to solve routine problems at least 75% of the time. Improvement noted in ability to provide appropriate responses for basic verbal problem-solving situations. Increased assistance required for multi-step sequencing and mathematical reasoning tasks. Patient is highly distracted by internal and external factors. MEMORY: MINIMAL ASSISTANCE. Patient is able to recognize and remember people, routines, and requests at least 75% of the time. SOCIAL INTERACTION: SUPERVISION. Improvement noted in wakefulness with increased participation in therapy tasks. DISCHARGE PLAN/RECOMMENDATION: Mr. Chaparro will be discharged to SNF on 11/20/22. He will benefit from continued speech therapy services to further address functional communication and cognitive skills for increased safety and independence in his discharge setting; also to address safety of diet upgrade to regular texture. The Patient: [ ]is able to state 2 risk factors without VCs prior to discharge [X ]requires cues to recall 2 stroke risk factors [ ] Is unable to state stroke risk factors due to communication or cognitive deficits Residential Goals: Goal Discharge Status Level of Assistance to Meet Problem Solving: Min assist (10-24%) Problem Solving Details: Improve functional problem-solving skills to minimal assistance to solve routine problems at least 75% of the time. Problem Solving Expected Achievement Date: 11/25/22 Level of Assistance to Meet Memory: Min assist (10-24%) Memory Details: Improve functional memory skills to minimal assistance to recognize and remember people, routines, and requests at least 75% of the time. Memory Expected Achievement Date: 11/25/22 Swallowing Details: Safely manage regular texture solids and thin liquids with no clinical signs ofdysphagia. Swallowing Expected Achievement Date: 11/25/22 Patient Active Problem List Diagnosis Cerebrovascular accident Chronic obstructive pulmonary disease Coronary arteriosclerosis Primary hypertension Dysphagia Past Medical History: Diagnosis Date Cancer Heart disease Stroke Current Facility-Administered Medications: acetaminophen (TYLENOL) tablet 650 mg, 650 mg, Oral, Q8H BERNARDO, Marion Perry MD, 650 mg at 11/20/22 0541 aspirin EC tablet 81 mg, 81 mg, Oral, Once a day, Marion Perry MD, 81 mg at 11/20/22 0846 bismuth subsalicylate (PEPTO BISMOL) 262 MG/15ML suspension 30 mL, 30 mL, Oral, Q6H PRN, Marion Perry MD, 30 mL at 11/05/22 2127 brimonidine (ALPHAGAN) 0.2 % ophthalmic solution 1 drop, 1 drop, Both Eyes, 3 times per day, Urban Perry MD, 1 drop at 11/20/22 0852 carvedilol (COREG) tablet 3.125 mg, 3.125 mg, Oral, 2 times per day, Teresa Milner MD, 3.125 mg at 11/20/22 0845 nicotine (NICODERM CQ) patch 21 mg, 21 mg, Transdermal, Once a day, 21 mg at 11/20/22 0900 AND Check Patch Placement, , Transdermal, 2 times per day, Marion Perry MD, Check Patch Placement at 11/20/22 0900 clopidogrel (PLAVIX) tablet 75 mg, 75 mg, Oral, Once a day, Marion Perry MD, 75 mg at 11/20/22 0846 cyclobenzaprine (FLEXERIL) tablet 5 mg, 5 mg, Oral, TID PRN, Raul Vo MD, 5 mg at 11/18/22 1311 dextrose (GLUTOSE) 40 % oral gel 15 g, 15 g, Oral, PRN, Marion Perry MD dextrose 50 % IV solution 12.5 g, 12.5 g, Intravenous, PRN OR dextrose 50 % IV solution 25 g, 25 g, Intravenous, PRN, Marion Perry MD Fluticasone-Salmeterol (AIRDUO RESPICLICK) 232-14 MCG/ACT inhaler 1 puff, 1 puff, Inhalation, RT BID, Marion Perry MD, 1 puff at 11/20/22 0851 gabapentin (NEURONTIN) capsule 200 mg, 200 mg, Oral, 3 times per day, Marion Perry MD, 200 mgat 11/20/22 0846 glipiZIDE (GLUCOTROL) tablet 5 mg, 5 mg, Oral, Once a day, Soto Meng MD, 5 mg at 11/20/22 0846 glucagon injection reconstituted solution 1 mg, 1 mg, Intramuscular, PRN, Marion Perry MD hemorrhoidal ointment, , Apply externally, TID PRN, Marion Perry MD, Given at 11/13/22 2118 heparin (porcine) injection 5,000 Units, 5,000 Units, Subcutaneous, Q8H BERNARDO, Marion Perry MD,5,000 Units at 11/20/22 0541 ipratropium-albuterol (DUO-NEB) 0.5-2.5 mg/3 mL nebulizer solution 3 mL, 3 mL, Inhalation, Q 4 hours PRN, Marion Perry MD, 3 mL at 11/02/22 2344 ketoconazole (NIZORAL) 2 % cream, , Topical, Once a day, Shorty Menard DPM, Given at 11/20/22 0851 lidocaine (LIDOCARE) 4 % patch 3 patch, 3 patch, Transdermal, Once a day, Carolina Garibay MD, 3 patch at 11/19/22 1011 melatonin tablet 9 mg, 9 mg, Oral, Nightly, Marion Perry MD, 9 mg at 11/19/221999 midodrine (PROAMATINE) tablet 5 mg, 5 mg, Oral, Q8H PRN, Raul Vo MD muscle rub (ICY HOT) 10-15 % cream, , Topical, 2 times per day, Carolina Garibay MD, Given at 11/20/22 0852 oxyCODONE (ROXICODONE) immediate release tablet 5 mg, 5 mg, Oral, Q4H PRN, Carolina Garibay MD, 5 mgat 11/19/22 0319 polyethylene glycol (MIRALAX) packet 17 g, 17 g, Oral, BID PRN, Carolina Garibay MD, 17 g at 11/04/22 2159 rosuvastatin (CRESTOR) tablet 40 mg, 40 mg, Oral, Once a day, Marion Perry MD, 40 mg at 11/20/22 0847 simethicone (MYLICON) chewable tablet 80 mg, 80 mg, Oral, 4x Daily PRN, Marion Perry MD, 80 mg at 10/31/22 1818 tamsulosin (FLOMAX) 24 hr capsule 0.4 mg, 0.4 mg, Oral, After Breakfast, Marion Perry MD, 0.4mg at 11/20/22 0846 Umeclidinium [place] (INCRUSE ELLIPTA) 62.5 MCG/ACT inhaler 62.5 mcg, 1 puff, Inhalation, RT Daily,Marion Perry MD, 62.5 mcg at 11/20/22 0851 Review of Systems: Review of Systems Constitutional: Negative for fatigue. HENT: Negative for congestion. Eyes: Negative for discharge. Respiratory: Negative for apnea. Cardiovascular: Positive for leg swelling. Gastrointestinal: Negative for abdominal distention. Genitourinary: Negative for difficulty urinating. Musculoskeletal: Positive for arthralgias. Skin: Negative for color change. Neurological: Positive for weakness. Psychiatric/Behavioral: The patient is nervous/anxious. Physical Exam Vitals: 11/20/22 0845 BP: Pulse: 64 Resp: Temp: SpO2: Physical Exam Constitutional: General: He is not in acute distress. HENT: Head: Atraumatic. Eyes: Conjunctiva/sclera: Conjunctivae normal. Cardiovascular: Rate and Rhythm: Normal rate. Pulmonary: Effort: Pulmonary effort is normal. Abdominal: General: There is no distension. Skin: Findings: No erythema. Neurological: Coordination: Coordination abnormal. Neurologic Exam Mental Status Oriented to person. Lab Data Reviewed current lab results available to me today. Lab Results Component Value Date WBC 8.8 11/19/2022 HGB 10.3 (L) 11/19/2022 HCT 32.0 (L) 11/19/2022 MCV 94.1 11/19/2022 PLT 246 11/19/2022 Lab Results Component Value Date GLUCOSE 114 (H) 11/19/2022 CALCIUM 9.9 11/19/2022 NA 140 11/19/2022 K 4.8 11/19/2022 CO2 26 11/19/2022 CL 105 11/19/2022 BUN 56 (H) 11/19/2022 CREATININE 1.40 (H) 11/19/2022 ANIONGAP 9 11/19/2022 Imaging Reviewed current imaging results available to me today. No results found. Assessment & Plan: Esperanza Chaparro is a 67 y.o. male patient with Cerebrovascular accident functional impairment for rehab Cerebrovascular accident L sided hemiplegia ( dense ) Left face droop Dysarthria SNF discharge NIH Stroke Scale (NIHSS) Date: 11/21/2022 Person Administering Scale: CAROLINA GARIBAY MD 1a Level of consciousness: 0=alert; keenly responsive 1b. LOC questions: 0=Performs both tasks correctly 1c. LOC commands: 0=Performs both tasks correctly 2. Best Gaze: 1=partial gaze palsy [...] Ataxia: 1=Present in one limb 8. Sensory: 1=Mild to moderate sensory loss; patient feels pinprick is less sharp or is dull on theaffected side; there is a loss of superficial pain with pinprick but patient is aware She is being touched 9. Best Language: 0=No aphasia, normal 10. Dysarthria: 1=Mild to moderate, patient slurs at least some words and at worst, can be understood with some difficulty 11. Extinction and Inattention: 0=No abnormality Total: 12 - on aspirin, Plavix 90 days, statin - gabapentin for neuropathy, 200 mg t.i.d., scheduled Tylenol DIET: Dietary Orders (From admission, onward) Start Ordered 10/29/22 1700 Nutritional supplement Oral 3 times daily with meals Comments: Send vanilla ensure high protein TID End/Expires: Until Specified Question Answer Comment Administration Route: Oral Place order in third constitution party system. Done 10/29/22 1346 10/28/222111 Adult Diet Regular; 6 Soft & Bite-Sized (NDD III); 0 Thin (All Liquids) Diet effective now End/Expires: Until Specified References: IDDSI Website Question Answer Comment Diet Type: Regular Diet Texture: 6 Soft & Bite-Sized (NDD III) Liquid Consistency: 0 Thin (All Liquids) Place order in third constitution party system. 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 On modified diet # Gout : Stable On PRN Ibuprofen # DMII On oral meds # HTN #CAD s/p PCI - continue ASA, statin # COPD - home inhalers, duonebs prn # Pain: Oxy and Lidoderm Left hip XR on 11/06 Mild symmetric degenerative change the hip joints are present with minimal joint space narrowing. Lidoderm # BRYCE: S/P IVF Medication List START taking these medications Prescription Last Dose and Time given aspirin 81 MG EC tablet Instructions: Take 1 tablet (81 mg total) by mouth in the morning. Indications: Thickening and Hardening of Heart Arteries. Refill: 1 81 mg on November 20, 2022 8:46 AM carvedilol 3.125 MG tablet Commonly known as: COREG Instructions: Take 1 tablet (3.125 mg total) by mouth 2 (two) times a day with Breakfast and Dinner. Dispense: 60 tablet Refill: 1 3.125 mg on November 20, 2022 4:12 PM clopidogrel 75 MG tablet Commonly known as: PLAVIX Instructions: Take 1 tablet (75 mg total) by mouth in the morning for 59 days. Indications: Percutaneous Coronary Intervention, Stroke Due To Limited Blood Flow, Thickening and Hardening of Heart Arteries. Dispense: 59 tablet Refill: 0 75 mg on November 20, 2022 8:46 AM cyclobenzaprine 5 MG tablet Commonly known as: FLEXERIL Instructions: Take 1 tablet (5 mg total) by mouth 3 (three) times a day as needed for muscle spasmsfor up to 3 doses. Dispense: 3 tablet Refill: 0 5 mg on November 18, 2022 1:11 PM glipiZIDE 5 MG tablet Commonly known as: GLUCOTROL Instructions: Take 1 tablet (5 mg total) by mouth in the morning. Indications: Type 2 Diabetes. Dispense: 30 tablet Refill: 1 5 mg on November 20, 2022 8:46 AM nicotine 21 MG/24HR Commonly known as: NICODERM CQ Instructions: Place 1 patch (21 mg total) on the skin in the morning for 3 doses. Dispense: 3 patch Refill: 0 21 mg on November 20, 2022 9:00 AM rosuvastatin 40 MG tablet Commonly known as: CRESTOR Instructions: Take 1 tablet (40 mg total) by mouth in the morning. Dispense: 30 tablet Refill: 0 40 mg on November 20, 2022 8:47 AM tamsulosin 0.4 MG capsule Commonly known as: FLOMAX Instructions: Take 1 capsule (0.4 mg total) by mouth After Breakfast. Dispense: 30 capsule Refill: 0 0.4 mg on November 20, 2022 8:46 AM CHANGE how you take these medications Prescription Last Dose and Time given melatonin tablet What changed: how much to take Instructions: Take 2 tablets (2 mg total) by mouth nightly. Dispense: 3 tablet Refill: 0 9 mg on November 19, 2022 8:00 PM CONTINUE taking these medications Prescription Last Dose and Time given Brinzolamide-Brimonidine 1-0.2 % suspension Instructions: Administer 1 drop into both eyes 3 (three) times a day. Refill: 0 budesonide-formoterol 160-4.5 MCG/ACT inhaler Commonly known as: SYMBICORT Instructions: Inhale 2 puffs RT 2 (two) times a day. Refill: 0 cabergoline 0.5 MG tablet Commonly known as: DOSTINEX Instructions: Take 0.5 tablets (0.25 mg total) by mouth 2 (two) times a week. Refill: 0 carboxymethylcellulose solution Commonly known as: REFRESH PLUS Instructions: Apply 1 drop (0.05 mL total) to both eyes 4 (four) times a day as needed for dry eyes. Refill: 0 ergocalciferol 1.25 MG (96094 UT) capsule Commonly known as: VITAMIN D2 Instructions: Take 1 capsule (50,000 Units total) by mouth once a week. Refill: 0 Spiriva Respimat 2.5 MCG/ACT aerosol solution Generic drug: Tiotropium [place] Monohydrate Instructions: Inhale 2 puffs (5 mcg total) RT Daily. Refill: 0 ASK your doctor about these medications Prescription Last Dose and Time given gabapentin 100 MG capsule Commonly known as: NEURONTIN Ask about: Should I take this medication? Instructions: Take 2 capsules (200 mg total) by mouth 3 (three) times a day for 3 doses. Dispense: 6 capsule Refill: 0 200 mg on November 20, 2022 2:16 PM DC SNF CAROLINA GARIBAY MD * Sacha Ruby DO - 11/19/2022 11:04 PM CDT [facility] - Nephrology Progress Note [facility], [facility]. Office 24-hour Physician Line: [phone] Date: 11/19/2022 Hospital Day: Hospital Day: 23 Patient name: Esperanza Chaparro Room number: 319/319-2 Attending: Carolina Garibay MD Reason for consult: Hyperkalemia ASSESSMENT Hyperkalemia: Differential includes medication induced (RAAS blockade), hyporeninemic hypoaldosteronism or other adrenal insufficiency, volume depletion, CKD (Cr may be falsely low due to sarcopenia) Hypercalcemia: Differential includes volume depletion, adrenal insufficiency, hyperparathyroidism, malignancy, and other. Acute kidney injury: B/l Cr 0.9-1.1 mg/dL. Differential includes RAAS blockade, hypotension, bradycardia, and volume depletion. DM2 HTN CAD COPD JAMES PLAN DC saline in AM Renin/Margarita in process. AM cortisol WNL. Check serum albumin, CK, and LDH Continue holding Vit D supplement for now, monitoring Ca Give Lokelma only if K greater than 6 Clinical Summary: This is a 67-year-old man admitted to [facility] on 10/28/22 following hospitalization for acute on chronic right MCA and SHEA ischemic strokes with carotid stump syndrome, treated with tPA. He required intubation. He received Unasyn for peritonsillar abscess present on admission, and was noted to have asymptomatic bradycardia (first-degree AV block) while on outpatient carvedilol. Chronic comorbidities include CAD, COPD, HTN, DM2, JAMES, and history of colon cancer status post colectomy. Nephrology is consulted on day 21 of acute rehab for hyperkalemia. Subjective: Seen this afternoon. Resting comfortably. Appetite is fair, not at baseline. No acute events overnight. Urinating well. Denies difficulty breathing or edema. ROS: An 11-point review of systems performed on initial consultation has been reviewed, and there are noadditional reported symptoms today other than those mentioned in the HPI above. OBJECTIVE Vital signs Patient Vitals for the past 24 hrs: BP Temp Temp src Pulse Resp SpO2 11/19/22 1925 120/68 98 ??F (36.7 ??C) Oral 59 18 97 % 11/19/22 1645 115/69 -- -- 58 -- 94 % 11/19/22 0800 133/68 97.4 ??F (36.3 ??C) Axillary 61 18 94 % Wt Readings from Last 3 Encounters: 11/15/22 229 lb (103.9 kg) Scheduled Meds acetaminophen, 650 mg, Oral, Q8H BERNARDO aspirin, 81 mg, Oral, Once a day brimonidine, 1 drop, Both Eyes, 3 times per day carvedilol, 3.125 mg, Oral, 2 times per day nicotine, 21 mg, Transdermal, Once a day And Check Patch Placement, , Transdermal, 2 times per day clopidogrel, 75 mg, Oral, Once a day Fluticasone-Salmeterol, 1 puff, Inhalation, RT BID gabapentin, 200 mg, Oral, 3 times per day glipiZIDE, 5 mg, Oral, Once a day heparin (porcine), 5,000 Units, Subcutaneous, Q8H BERNARDO ketoconazole, , Topical, Once a day lidocaine, 3 patch, Transdermal, Once a day melatonin, 9 mg, Oral, Nightly muscle rub, , Topical, 2 times per day rosuvastatin, 40 mg, Oral, Once a day tamsulosin, 0.4 mg, Oral, After Breakfast Umeclidinium [place], 1 puff, Inhalation, RT Daily IV Meds sodium chloride infusion, Last Rate: Stopped (11/18/222049) PRN Meds bismuth subsalicylate, 30 mL, Q6H PRN cyclobenzaprine, 5 mg, TID PRN glucose, 15 g, PRN dextrose, 12.5 g, PRN Or dextrose, 25 g, PRN glucagon, 1 mg, PRN hemorrhoidal, , TID PRN ipratropium-albuterol, 3 mL, Q 4 hours PRN midodrine, 5 mg, Q8H PRN oxyCODONE, 5 mg, Q4H PRN polyethylene glycol, 17 g, BID PRN simethicone, 80 mg, 4x Daily PRN Labortory data Recent Labs Lab Units 11/19/22 0008 11/18/22 1429 11/18/22 0314 SODIUM MMOL/L BLOOD mmol/L 140 139 136 POTASSIUM MMOL/L BLOOD mmol/L 4.8 5.3* 5.5* CHLORIDE mmol/L 105 104 100 CO2 mmol/L 26 19* 26 BUN MG/DL BLOOD mg/dL 56* 59* 63* CREATININE mg/dL 1.40* 1.61* 1.70* GLUCOSE MG/DL BLOOD mg/dL 114* 159* 122* CALCIUM MG/DL BLOOD mg/dL 9.9 11.6* 9.9 Recent Labs Lab Units 11/19/22 0008 11/16/22 1227 WBC X(10)9/L BLOOD x10E9/L 8.8 11.8* HGB GM/DL BLOOD gm/dL 10.3* 11.1* HCT % BLOOD % 32.0* 35.5 MCV FL BLOOD fl 94.1 94.4 MCH PG BLOOD pg 30.3 29.5 MCHC GM/DL BLOOD gm/dL 32.2 31.3 RDW-CV % BLOOD % 14.5 14.5 MPV FL BLOOD fl 9.2* 8.8* PLT CT X(10)9/L BLOOD x10E9/L 246 278 No results found for: IRON, TIBC, FERRITIN Lab Results Component Value Date CALCIUM 9.9 11/19/2022 Physical Exam: General: In no acute distress Neuro: Not currently following commands HEENT: NC/AT, no scleral icterus, MMM Chest: CTAB, no w/c/r CV: RRR, no murmurs noted, radial pulses equal bilaterally Abd: Soft, nondistended, nontender Extremities: No edema noted b/l SCOTT Orourke personally spent 25 minutes providing Nephrology-related care for this patient, including but notlimited to a [id number] encounter, reviewing laboratory and imaging data, counseling the patient and/or family, and coordinating care with other health care providers. Thank you very much for the opportunity to help care for this patient. Please call any time with questions/concerns. Sacha Ruby DO, MBA Nephrology & Hypertension 24-Hr Exchange: [phone] * Teresa Milner MD - 11/19/2022 3:27 PM CDT HOSPITALIST PROGRESS NOTE Patient Name: Esperanza Chaparro : 1955 Medical Record: [id number] ATTENDING Carolina Garibay MD SUBJECTIVE 10/30 The patient is being seen for follow-up of Cerebrovascular accident. BP, BS , HR, labs, strength. .Chief Complaint Renal 42/1.5 Hr 50s BP low DC norvasc Decrease dose of coreg and cozaar strength improving, able to do therapy ok. No chest pain, no SOB, no dizziness, no palpitations, no new neurologic symptoms. No cough, No nausea or vomiting, No abdominal pain. History also obtained from Nurse and staff about how the patient did overnight and during the day strength improving, able to do therapy ok. Brief 10/31: Patient seen and examined this morning. Patient complaining of uncontrolled pain. Follow up with PM&R for further recommendations. Continue current medical management. 11/01: Patient seen and examined this afternoon. Patient continues to complain of uncontrolled pain.Follow up with PM&R for further recommendations. Have placed orders for Flexeril 5 mg TID PRN. Continue current medical management. 11/02: Patient seen and examined this morning. Patient complaining of uncontrolled pain. Follow up with PM&R for further recommendations. Patient has been having great toe pain. Possibly patient has gout. Follow up uric acid. Follow up Podiatry further recommendations regarding foot care. Continue current medical management. 11/03:Patient seen and examined this morning. Vitals and labs reviewed. Resting comfortably. No acute events overnight. Continue current medical management. 11/04 BP up once No complaints Doing better in therapy 11/05 No events reported Vitals/labs reviewed Participating with therapy 11/06 The patient was seen in the room this afternoon. The patient currently does not report any chest pain, shortness present nausea or vomiting No reported issues from the floor nurse. The most recent labs and vital signs were reviewed. 11/07 Patient seen and examined Doing fine No new issues to report Labs/vitals reviewed 11/08 Patient seen and examined Doing fine No new issues to report Labs/vitals reviewed 11/09 Patient seen and examined Doing ok No new issues to report Vitals reviewed Labs unremarkable 11/10 Patient seen and examined Doing alright No new issues to report Vitals reviewed 11/11 Patient seen and examined Doing fine No new issues to report Labs/vitals reviewed Family at bedside 11/12 The patient was seen and examined this morning. Patient appears to be in good spirits. Based on most recent notes, patient has been actively involved in therapy. Nursing has not reported any major issues throughout the day. The patient has not reported any chest pain, nausea, vomiting, or difficulty breathing. 11/13 Patient seen and examined Doing fine No new issues to report Resting comfortably 11/14 Patient seen and examined Doing alright No new issues to report Vitals reviewed 11/15 Patient seen and examined Doing fine at this time Labs/vitals reviewed Resting comfortably 11/16: Patient seen and examined this morning. Patient's blood pressure continues to run low. Have placed orders for midodrine PRN. No acute events overnight. Continue current medical management. Pending blood work. 11/17 The patient is also being seen for follow-up of all current problems, BP, BS , HR, labs and strength. Follow up on pain, swallowing, bladder and bowel function. Labs and VS reviewed. patient slept ok last night. Appetite and PO ok. Strength improving in therapy Patient seen and evaluated on daily rounds. No overnight events reported. Patent participating withtherapy and cares. Patient denies any chest pain no palpitations no shortness of breath no cough. Vitals ok Labs noted elevated potassium 11/18 The patient is also being seen for follow-up of all current problems, BP, BS , HR, labs and strength. Follow up on pain, swallowing, bladder and bowel function. Labs and VS reviewed. patient slept ok last night. Appetite and PO ok. Strength improving in therapy Patient seen and evaluated on daily rounds. No overnight events reported. Patent participating withtherapy and cares. Patient denies any chest pain no palpitations no shortness of breath no cough. Vitals ok Labs noted hyperkalemia/renal failure 11/19 The patient is also being seen for follow-up of all current problems, BP, BS , HR, labs and strength. Follow up on pain, swallowing, bladder and bowel function. Labs and VS reviewed. patient slept ok last night. Appetite and PO ok. Strength improving in therapy Patient seen and evaluated on daily rounds. No overnight events reported. Patent participating withtherapy and cares. Patient denies any chest pain no palpitations no shortness of breath no cough. Vitals ok Labs noted K better /Cr improving istory Patient is a 67-year-old male with past medical history of CAD, COPD, hypertension, diabetes, sleepapnea, colon cancer status post colectomy who was transferred to [facility] with new neurologicaldeficits. Imaging confirmed acute on chronic right MCA and SHEA stroke. Patient did receive tPA in the ER. Patient was admitted to the neuro ICU. Patient's clinical condition stabilized. Patient was kept on aspirin Plavix for 90 days. Patient was started on statin. Patient is on Jardiance. Secondarystroke workup was completed. Patient also did complete a course of Unasyn for peritonsillar abscess. Patient worked with physical therapy and occupational therapy. Acute inpatient rehab was recommende d. HOME Medications Prior to Admission medications Medication Sig Start Date End Date Taking? Authorizing Provider Brinzolamide-Brimonidine 1-0.2 % suspension Administer 1 drop into both eyes 3 (three) times a day.Yes Historical Provider, budesonide-formoterol (SYMBICORT) 160-4.5 MCG/ACT inhaler Inhale 2 puffs RT 2 (two) times a day. Yes Historical Provider, cabergoline (DOSTINEX) 0.5 MG tablet Take 0.5 tablets (0.25 mg total) by mouth 2 (two) times a week. Yes Historical Provider, carboxymethylcellulose (Carboxymethylcellulose Sodium) solution Apply 1 drop (0.05 mL total) to both eyes 4 (four) times a day as needed for dry eyes. Yes Historical Provider, ergocalciferol (vitamin D2, Ergocalciferol,) 1.25 MG (01074 UT) capsule Take 1 capsule (50,000 Units total) by mouth once a week. Yes Historical Provider, melatonin tablet Take 8 tablets (8 mg total) by mouth nightly. Yes Historical Provider, Tiotropium [place] Monohydrate (Spiriva Respimat) 2.5 MCG/ACT aerosol solution Inhale 2 puffs (5 mcg total) RT Daily. Yes Historical Provider, CURRENT Medications Current Facility-Administered Medications: acetaminophen (TYLENOL) tablet 650 mg, 650 mg, Oral, Q8H BERNARDO, Marion Perry MD, 650 mg at 11/19/22 1419 aspirin EC tablet 81 mg, 81 mg, Oral, Once a day, Marion Perry MD, 81 mg at 11/19/22 1010 bismuth subsalicylate (PEPTO BISMOL) 262 MG/15ML suspension 30 mL, 30 mL, Oral, Q6H PRN, Marion Perry MD, 30 mL at 11/05/22 2127 brimonidine (ALPHAGAN) 0.2 % ophthalmic solution 1 drop, 1 drop, Both Eyes, 3 times per day, Urban Perry MD, 1 drop at 11/19/22 1421 carvedilol (COREG) tablet 3.125 mg, 3.125 mg, Oral, 2 times per day, Teresa Milner MD, 3.125 mg at 11/19/22 1010 nicotine (NICODERM CQ) patch 21 mg, 21 mg, Transdermal, Once a day, 21 mg at 11/19/22 1008 AND Check Patch Placement, , Transdermal, 2 times per day, Marion Perry MD, Check Patch Placement at 11/19/22 1012 clopidogrel (PLAVIX) tablet 75 mg, 75 mg, Oral, Once a day, Marion Perry MD, 75 mg at 11/19/22 1010 cyclobenzaprine (FLEXERIL) tablet 5 mg, 5 mg, Oral, TID PRN, Raul Vo MD, 5 mg at 11/18/22 1311 dextrose (GLUTOSE) 40 % oral gel 15 g, 15 g, Oral, PRN, Marion Perry MD dextrose 50 % IV solution 12.5 g, 12.5 g, Intravenous, PRN OR dextrose 50 % IV solution 25 g, 25 g, Intravenous, PRN, Marion Perry MD Fluticasone-Salmeterol (AIRDUO RESPICLICK) 232-14 MCG/ACT inhaler 1 puff, 1 puff, Inhalation, RT BID, Marion Perry MD, 1 puff at 11/19/22 1013 gabapentin (NEURONTIN) capsule 200 mg, 200 mg, Oral, 3 times per day, Marion Perry MD, 200 mgat 11/19/22 1419 glipiZIDE (GLUCOTROL) tablet 5 mg, 5 mg, Oral, Once a day, Soto Meng MD, 5 mg at 11/19/22 1009 glucagon injection reconstituted solution 1 mg, 1 mg, Intramuscular, PRN, Marion Perry MD hemorrhoidal ointment, , Apply externally, TID PRN, Marion Perry MD, Given at 11/13/22 2118 heparin (porcine) injection 5,000 Units, 5,000 Units, Subcutaneous, Q8H BERNARDO, Marion Perry MD,5,000 Units at 11/19/22 1420 ipratropium-albuterol (DUO-NEB) 0.5-2.5 mg/3 mL nebulizer solution 3 mL, 3 mL, Inhalation, Q 4 hours PRN, Marion Perry MD, 3 mL at 11/02/22 2344 ketoconazole (NIZORAL) 2 % cream, , Topical, Once a day, Shorty Menard DPM, Given at 11/19/22 1013 lidocaine (LIDOCARE) 4 % patch 3 patch, 3 patch, Transdermal, Once a day, Carolina Garibay MD, 3 patch at 11/19/22 1011 melatonin tablet 9 mg, 9 mg, Oral, Nightly, Marion Perry MD, 9 mg at 11/18/222001 midodrine (PROAMATINE) tablet 5 mg, 5 mg, Oral, Q8H PRN, Raul Vo MD muscle rub (ICY HOT) 10-15 % cream, , Topical, 2 times per day, Carolina Garibay MD, Given at 11/19/22 1013 oxyCODONE (ROXICODONE) immediate release tablet 5 mg, 5 mg, Oral, Q4H PRN, Carolina Garibay MD, 5 mgat 11/19/22 0319 polyethylene glycol (MIRALAX) packet 17 g, 17 g, Oral, BID PRN, Carolina Garibay MD, 17 g at 11/04/22 2159 rosuvastatin (CRESTOR) tablet 40 mg, 40 mg, Oral, Once a day, Marion Perry MD, 40 mg at 11/19/22 1009 simethicone (MYLICON) chewable tablet 80 mg, 80 mg, Oral, 4x Daily PRN, Marion Perry MD, 80 mg at 10/31/22 1818 sodium chloride 0.9 % infusion, 75 mL/hr, Intravenous (Continuous Infusion), Continuous, Teresa Milner MD, Stopped at 11/18/222049 tamsulosin (FLOMAX) 24 hr capsule 0.4 mg, 0.4 mg, Oral, After Breakfast, Marion Perry MD, 0.4mg at 11/19/22 1010 Umeclidinium [place] (INCRUSE ELLIPTA) 62.5 MCG/ACT inhaler 62.5 mcg, 1 puff, Inhalation, RT Daily,Marion Prery MD, 62.5 mcg at 11/19/22 1013 DATA Vitals: 11/18/22 0839 11/18/22 1649 11/18/22 1932 11/19/22 0800 BP: 140/72 111/67 144/75 133/68 Pulse: 80 58 71 61 Resp: 18 16 18 Temp: 98.1 ??F (36.7 ??C) 97.8 ??F (36.6 ??C) 97.4 ??F (36.3 ??C) TempSrc: Oral Oral Axillary SpO2: 97% 93% 94% Weight: Height: POC Glucose POC Glucose 11/19/22 0604 116 11/18/22 2031 185 11/18/22 1632 146 Weights (last 3 days) None @ANTICOAGSUMMARY@ @FLOWDATE(2706:LAST)@ Intake/Output Summary (Last 24 hours) at 11/19/2022 1527 Last data filed at 11/19/2022 1316 Gross per 24 hour Intake 709 ml Output 600 ml Net 109 ml PHYSICAL EXAM General: Patient in no acute distress, awake, alert Head: Atraumatic/Normocephalic Respiratory: No use of accessory muscles Extremities: No visible swelling Skin: No rashes, no ulcers on visible skin Neuro: No obvious neurologic deficits Psych: mood appears appropriate LABS CBC with Differential: Lab Results Component Value Date WBC 8.8 11/19/2022 HGB 10.3 (L) 11/19/2022 HCT 32.0 (L) 11/19/2022 PLT 246 11/19/2022 MCV 94.1 11/19/2022 MCH 30.3 11/19/2022 MCHC 32.2 11/19/2022 RDW 14.5 11/19/2022 [ BMP: Lab Results Component Value Date NA 140 11/19/2022 K 4.8 11/19/2022 CL 105 11/19/2022 CO2 26 11/19/2022 BUN 56 (H) 11/19/2022 CREATININE 1.40 (H) 11/19/2022 GLUCOSE 114 (H) 11/19/2022 CALCIUM 9.9 11/19/2022 ANIONGAP 9 11/19/2022 MG/PHOS: No results found for: MG, PHOS CKMB: No components found for: CKMB;2 PT/INR: No results found for: LABPROT, INR BNP: No results found for: BNP Last 3 Troponin: No components found for: TROPONINI;3 U/A: Lab Results Component Value Date COLORU Yellow 11/18/2022 CLARITYU Cloudy (A) 11/18/2022 GLUCOSEU Negative 11/18/2022 BILIRUBINUR Negative 11/18/2022 KETONESU Negative 11/18/2022 UROBILINOGEN Negative 11/18/2022 RBCUA 11-20 (A) 11/18/2022 WBCUA >100 (A) 11/18/2022 CMP: Lab Results Component Value Date NA 140 11/19/2022 K 4.8 11/19/2022 CL 105 11/19/2022 CO2 26 11/19/2022 BUN 56 (H) 11/19/2022 CREATININE 1.40 (H) 11/19/2022 GLUCOSE 114 (H) 11/19/2022 CALCIUM 9.9 11/19/2022 ANIONGAP 9 11/19/2022 LFT's: No results found for: ALB, PROT Ionized Calcium: No components found for: IONCA ABG: No results found for: PHART, JIV2VIR, PO2ART, WPR8CYN, BEART, [id number] HgBA1c: No results found for: HGBA1C Lipid Panel: No results found for: CHOL, TRIG, HDL TSH: No results found for: TSH Lab Results Component Value Date GLUCOSE 114 (H) 11/19/2022 BUN 56 (H) 11/19/2022 CREATININE 1.40 (H) 11/19/2022 NA 140 11/19/2022 K 4.8 11/19/2022 CL 105 11/19/2022 CO2 26 11/19/2022 CALCIUM 9.9 11/19/2022 @RESU CBC: Recent Labs Lab Units 11/19/22 0008 WBC X(10)9/L BLOOD x10E9/L 8.8 HGB GM/DL BLOOD gm/dL 10.3* PLT CT X(10)9/L BLOOD x10E9/L 246 MCV FL BLOOD fl 94.1 BMP: Recent Labs Lab Units 11/19/22 0008 SODIUM MMOL/L BLOOD mmol/L 140 POTASSIUM MMOL/L BLOOD mmol/L 4.8 CHLORIDE mmol/L 105 CO2 mmol/L 26 BUN MG/DL BLOOD mg/dL 56* CREATININE mg/dL 1.40* GLUCOSE MG/DL BLOOD mg/dL 114* CALCIUM MG/DL BLOOD mg/dL 9.9 I reviewed the EKG tracing/Xray Recent Labs Lab Units 11/19/22 0008 SODIUM MMOL/L BLOOD mmol/L 140 POTASSIUM MMOL/L BLOOD mmol/L 4.8 CHLORIDE mmol/L 105 CO2 mmol/L 26 BUN MG/DL BLOOD mg/dL 56* CREATININE mg/dL 1.40* GLUCOSE MG/DL BLOOD mg/dL 114* CALCIUM MG/DL BLOOD mg/dL 9.9 ANION GAP BLOOD mmol/L 9 ASSESSMENT AND PLAN Principal Problem: Cerebrovascular accident Active Problems: Dysphagia Acute CVA Patient found to have a right acute on chronic MCA stroke and a SHEA ischemic stroke Patient received tPA in the ER Patient was admitted to the neuro ICU Patient was started on aspirin and Plavix Secondary stroke workup was completed Patient will be on 90 days of aspirin Plavix, end date 01/18/2023 Continue physical therapy Continue occupational therapy Physical medicine physician to oversee overall rehab program Hypertension BP on low side- off amlodipine/losartan held Low dose coreg- monitor Bradycardia Coreg with holding parameters Mild renal insufficiency Added Hyperkalemia- improved Plan Continue to hold losartan- was on 25 mg- Avoid hypotension D/w Dr Ruby-appreciate input Constipation- add scheduled Senna S/ Dulcolax once supp today- lokelma as above CAD Continue aspirin, coreg, plavix COPD Continue airduo Dysphagia Speech therapy DVT prophylaxis Continue heparin Code status Full code D/W patient , and attending physician about test results and treatment plan .No family in the room.Patient requiring monitoring of BP and HR while doing 3 hour intensive exercises to avoid fluctuations and hypotension . Aswell as monitoring of nutritional and fluid status , by weights, leg edema .Notified staff and patient to notify me of any change inconditions or new problems * Carolina Garibay MD - 11/19/2022 10:34 AM CDT PM&R PROGRESS NOTE This is Face to Face Visit note Esperanza Chaparro is a 67 y.o. male patient. [place] REVIEW OF FUNCTIONAL STATUS SM Functional Status PT Data (since 11/16/2022) Value Time User Bed Mobility Comment Supine in bed: rolls left with use of left handrail, cues to bend right leg and push: min/mod assist to complete motion. Use of drawsheet for max/total rolling to right side due to pt resists due to left shoulder pain. Pillow support between legs to control left leg, assist with left groin pain. 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 Data (since 11/16/2022) Value Time User Cognitive Communication Immediate memory; Short-term memory; Processing information of increased length or complexity; Semi-complex to complex attention; Task persistence; Self monitoring; Speed of processing; Verbal problem solving; Insight; Visual strategies 11/18/2022 12:[address] [facility] Dysphagia Treatment Swallow strategy training; Oral care; Dysphagia diet training 11/18/2022 12:[address] [facility] Compensatory Swallow Techniques Small bites; Small sips; Eat slowly-control rate; Seated upright with all PO intake; Monitor oral spillage; Oral care post PO intake; Other (comment) Avoid large bore straw 11/18/2022 12:[address] [facility] ST Narrative 1. Patient was seen for therapy in his room, reclined in bed; alert and cooperative with therapy tasks. Patient had reportedly received a suppository and was experiencing discomfort due to constipation. He was restless throughout the session, frequently complaining of discomfort due to his position in the bed. 2. Patient was able to provide two logical causes for functional problem situations with 100% accuracy. 3. Patient was able to read sentences on the iPad and choose the correct word from a choice of four to complete the sentence with 100% accuracy. 4. Patient produced sentences using speech strategies to improve articulation with minimal cueing. 5. Patient completed a task on the iPad to target divided attention and awareness of information on the left side (Constant Therapy Find Alternating Words level 2). Patient required moderate assistance to complete this task. 6. Patient remained in his room with call light left within reach. Bed alarm was activated. 11/18/2022 12:[address] [facility] Patient Active Problem List Diagnosis Cerebrovascular accident Chronic obstructive pulmonary disease Coronary arteriosclerosis Primary hypertension Dysphagia Past Medical History: Diagnosis Date Cancer Heart disease Stroke Current Facility-Administered Medications: acetaminophen (TYLENOL) tablet 650 mg, 650 mg, Oral, Q8H BERNARDO, Marion Perry MD, 650 mg at 11/19/22 0540 aspirin EC tablet 81 mg, 81 mg, Oral, Once a day, Marion Perry MD, 81 mg at 11/19/22 1010 bismuth subsalicylate (PEPTO BISMOL) 262 MG/15ML suspension 30 mL, 30 mL, Oral, Q6H PRN, Marion Perry MD, 30 mL at 11/05/22 2127 brimonidine (ALPHAGAN) 0.2 % ophthalmic solution 1 drop, 1 drop, Both Eyes, 3 times per day, Urban Perry MD, 1 drop at 11/19/22 1014 carvedilol (COREG) tablet 3.125 mg, 3.125 mg, Oral, 2 times per day, Teresa Milner MD, 3.125 mg at 11/19/22 1010 nicotine (NICODERM CQ) patch 21 mg, 21 mg, Transdermal, Once a day, 21 mg at 11/19/22 1008 AND Check Patch Placement, , Transdermal, 2 times per day, Marion Perry MD, Check Patch Placement at 11/19/22 1012 clopidogrel (PLAVIX) tablet 75 mg, 75 mg, Oral, Once a day, Marion Perry MD, 75 mg at 11/19/22 1010 cyclobenzaprine (FLEXERIL) tablet 5 mg, 5 mg, Oral, TID PRN, Raul Vo MD, 5 mg at 11/18/22 1311 dextrose (GLUTOSE) 40 % oral gel 15 g, 15 g, Oral, PRN, Marion Perry MD dextrose 50 % IV solution 12.5 g, 12.5 g, Intravenous, PRN OR dextrose 50 % IV solution 25 g, 25 g, Intravenous, PRN, Marion Perry MD Fluticasone-Salmeterol (AIRDUO RESPICLICK) 232-14 MCG/ACT inhaler 1 puff, 1 puff, Inhalation, RT BID, Marion Perry MD, 1 puff at 11/19/22 1013 gabapentin (NEURONTIN) capsule 200 mg, 200 mg, Oral, 3 times per day, Marion Perry MD, 200 mgat 11/19/22 1008 glipiZIDE (GLUCOTROL) tablet 5 mg, 5 mg, Oral, Once a day, Soto Meng MD, 5 mg at 11/19/22 1009 glucagon injection reconstituted solution 1 mg, 1 mg, Intramuscular, PRN, Marion Perry MD hemorrhoidal ointment, , Apply externally, TID PRN, Marion Perry MD, Given at 11/13/22 211 heparin (porcine) injection 5,000 Units, 5,000 Units, Subcutaneous, Q8H BERNARDO, Marion Perry MD,5,000 Units at 11/19/22 0539 ipratropium-albuterol (DUO-NEB) 0.5-2.5 mg/3 mL nebulizer solution 3 mL, 3 mL, Inhalation, Q 4 hours PRN, Marion Perry MD, 3 mL at 11/02/22 2344 ketoconazole (NIZORAL) 2 % cream, , Topical, Once a day, Shorty Menard DPM, Given at 11/19/22 1013 lidocaine (LIDOCARE) 4 % patch 3 patch, 3 patch, Transdermal, Once a day, Carolina Garibay MD, 3 patch at 11/19/22 1011 melatonin tablet 9 mg, 9 mg, Oral, Nightly, Marion Perry MD, 9 mg at 11/18/222001 midodrine (PROAMATINE) tablet 5 mg, 5 mg, Oral, Q8H PRN, Raul Vo MD muscle rub (ICY HOT) 10-15 % cream, , Topical, 2 times per day, Carolina Garibay MD, Given at 11/19/22 101 oxyCODONE (ROXICODONE) immediate release tablet 5 mg, 5 mg, Oral, Q4H PRN, Carolina Garibay MD, 5 mgat 11/19/22 0319 polyethylene glycol (MIRALAX) packet 17 g, 17 g, Oral, BID PRN, Carolina Garibay MD, 17 g at 11/04/22 215 rosuvastatin (CRESTOR) tablet 40 mg, 40 mg, Oral, Once a day, Marion Perry MD, 40 mg at 11/19/22 1009 simethicone (MYLICON) chewable tablet 80 mg, 80 mg, Oral, 4x Daily PRN, Marion Perry MD, 80 mg at 10/31/22 181 sodium chloride 0.9 % infusion, 75 mL/hr, Intravenous (Continuous Infusion), Continuous, Teresa Milner MD, Stopped at 11/18/222049 tamsulosin (FLOMAX) 24 hr capsule 0.4 mg, 0.4 mg, Oral, After Breakfast, Marion Perry MD, 0.4mg at 11/19/22 1010 Umeclidinium [place] (INCRUSE ELLIPTA) 62.5 MCG/ACT inhaler 62.5 mcg, 1 puff, Inhalation, RT Daily,Marion Perry MD, 62.5 mcg at 11/19/22 1013 Review of Systems: Review of Systems Constitutional: Negative for fatigue. HENT: Negative for congestion. Eyes: Negative for discharge. Respiratory: Negative for apnea. Cardiovascular: Positive for leg swelling. Gastrointestinal: Negative for abdominal distention. Genitourinary: Negative for difficulty urinating. Musculoskeletal: Positive for arthralgias. Skin: Negative for color change. Neurological: Positive for weakness. Psychiatric/Behavioral: The patient is nervous/anxious. Physical Exam Vitals: 11/19/22 0800 BP: 133/68 Pulse: 61 Resp: 18 Temp: 97.4 ??F (36.3 ??C) SpO2: 94% Physical Exam Constitutional: General: He is not in acute distress. HENT: Head: Atraumatic. Eyes: Conjunctiva/sclera: Conjunctivae normal. Cardiovascular: Rate and Rhythm: Normal rate. Pulmonary: Effort: Pulmonary effort is normal. Abdominal: General: There is no distension. Skin: Findings: No erythema. Neurological: Coordination: Coordination abnormal. Neurologic Exam Mental Status Oriented to person. Lab Data Reviewed current lab results available to me today. Lab Results Component Value Date WBC 8.8 11/19/2022 HGB 10.3 (L) 11/19/2022 HCT 32.0 (L) 11/19/2022 MCV 94.1 11/19/2022 PLT 246 11/19/2022 Lab Results Component Value Date GLUCOSE 114 (H) 11/19/2022 CALCIUM 9.9 11/19/2022 NA 140 11/19/2022 K 4.8 11/19/2022 CO2 26 11/19/2022 CL 105 11/19/2022 BUN 56 (H) 11/19/2022 CREATININE 1.40 (H) 11/19/2022 ANIONGAP 9 11/19/2022 Imaging Reviewed current imaging results available to me today. No results found. Assessment & Plan: Esperanza Chaparro is a 67 y.o. male patient with Cerebrovascular accident functional impairment for rehab Cerebrovascular accident L sided hemiplegia ( dense ) Left face droop Dysarthria SNF discharge - on aspirin, Plavix 90 days, statin - gabapentin for neuropathy, 200 mg t.i.d., scheduled Tylenol DIET: Dietary Orders (From admission, onward) Start Ordered 10/29/22 1700 Nutritional supplement Oral 3 times daily with meals Comments: Send [employer] ensure high protein TID End/Expires: Until Specified Question Answer Comment Administration Route: Oral Place order in third constitution party system. Done 10/29/22 1346 10/28/222111 Adult Diet Regular; 6 Soft & Bite-Sized (NDD III); 0 Thin (All Liquids) Diet effective now End/Expires: Until Specified References: IDDSI Website Question Answer Comment Diet Type: Regular Diet Texture: 6 Soft & Bite-Sized (NDD III) Liquid Consistency: 0 Thin (All Liquids) Place order in third constitution party system. 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 On modified diet # Gout : Stable On PRN Ibuprofen # DMII On oral meds # HTN #CAD s/p PCI - continue ASA, statin # COPD - home inhalers, duonebs prn # Pain: Oxy and Lidoderm Left hip XR on 11/06 Mild symmetric degenerative change the hip joints are present with minimal joint space narrowing. Lidoderm # BRYCE: IVF per nephro [facility]: DC SNF CAROLINA GARIBAY MD * Teresa Milner MD - 11/18/2022 10:46 AM CDT HOSPITALIST PROGRESS NOTE Patient Name: Esperanza Chaparro : 1955 Medical Record: [id number] ATTENDING Carolina Garibay MD SUBJECTIVE 10/30 The patient is being seen for follow-up of Cerebrovascular accident. BP, BS , HR, labs, strength. .Chief Complaint Renal 42/1.5 Hr 50s BP low DC norvasc Decrease dose of coreg and cozaar strength improving, able to do therapy ok. No chest pain, no SOB, no dizziness, no palpitations, no new neurologic symptoms. No cough, No nausea or vomiting, No abdominal pain. History also obtained from Nurse and staff about how the patient did overnight and during the day strength improving, able to do therapy ok. Brief 10/31: Patient seen and examined this morning. Patient complaining of uncontrolled pain. Follow up with PM&R for further recommendations. Continue current medical management. 11/01: Patient seen and examined this afternoon. Patient continues to complain of uncontrolled pain.Follow up with PM&R for further recommendations. Have placed orders for Flexeril 5 mg TID PRN. Continue current medical management. 11/02: Patient seen and examined this morning. Patient complaining of uncontrolled pain. Follow up with PM&R for further recommendations. Patient has been having great toe pain. Possibly patient has gout. Follow up uric acid. Follow up Podiatry further recommendations regarding foot care. Continue current medical management. 11/03:Patient seen and examined this morning. Vitals and labs reviewed. Resting comfortably. No acute events overnight. Continue current medical management. 11/04 BP up once No complaints Doing better in therapy 11/05 No events reported Vitals/labs reviewed Participating with therapy 11/06 The patient was seen in the room this afternoon. The patient currently does not report any chest pain, shortness present nausea or vomiting No reported issues from the floor nurse. The most recent labs and vital signs were reviewed. 11/07 Patient seen and examined Doing fine No new issues to report Labs/vitals reviewed 11/08 Patient seen and examined Doing fine No new issues to report Labs/vitals reviewed 11/09 Patient seen and examined Doing ok No new issues to report Vitals reviewed Labs unremarkable 11/10 Patient seen and examined Doing alright No new issues to report Vitals reviewed 11/11 Patient seen and examined Doing fine No new issues to report Labs/vitals reviewed Family at bedside 11/12 The patient was seen and examined this morning. Patient appears to be in good spirits. Based on most recent notes, patient has been actively involved in therapy. Nursing has not reported any major issues throughout the day. The patient has not reported any chest pain, nausea, vomiting, or difficulty breathing. 11/13 Patient seen and examined Doing fine No new issues to report Resting comfortably 11/14 Patient seen and examined Doing alright No new issues to report Vitals reviewed 11/15 Patient seen and examined Doing fine at this time Labs/vitals reviewed Resting comfortably 11/16: Patient seen and examined this morning. Patient's blood pressure continues to run low. Have placed orders for midodrine PRN. No acute events overnight. Continue current medical management. Pending blood work. 11/17 The patient is also being seen for follow-up of all current problems, BP, BS , HR, labs and strength. Follow up on pain, swallowing, bladder and bowel function. Labs and VS reviewed. patient slept ok last night. Appetite and PO ok. Strength improving in therapy Patient seen and evaluated on daily rounds. No overnight events reported. Patent participating withtherapy and cares. Patient denies any chest pain no palpitations no shortness of breath no cough. Vitals ok Labs noted elevated potassium 11/18 The patient is also being seen for follow-up of all current problems, BP, BS , HR, labs and strength. Follow up on pain, swallowing, bladder and bowel function. Labs and VS reviewed. patient slept ok last night. Appetite and PO ok. Strength improving in therapy Patient seen and evaluated on daily rounds. No overnight events reported. Patent participating withtherapy and cares. Patient denies any chest pain no palpitations no shortness of breath no cough. Vitals ok Labs noted hyperkalemia/renal failure istory Patient is a 67-year-old male with past medical history of CAD, COPD, hypertension, diabetes, sleepapnea, colon cancer status post colectomy who was transferred to [facility] with new neurologicaldeficits. Imaging confirmed acute on chronic right MCA and SHEA stroke. Patient did receive tPA in the ER. Patient was admitted to the neuro ICU. Patient's clinical condition stabilized. Patient was kept on aspirin Plavix for 90 days. Patient was started on statin. Patient is on Jardiance. Secondary stroke workup was completed. Patient also did complete a course of Unasyn for peritonsillar abscess. Patient worked with physical therapy and occupational therapy. Acute inpatient rehab was recommend ed. HOME Medications Prior to Admission medications Medication Sig Start Date End Date Taking? Authorizing Provider Brinzolamide-Brimonidine 1-0.2 % suspension Administer 1 drop into both eyes 3 (three) times a day.Yes Historical Provider, budesonide-formoterol (SYMBICORT) 160-4.5 MCG/ACT inhaler Inhale 2 puffs RT 2 (two) times a day. Yes Historical Provider, cabergoline (DOSTINEX) 0.5 MG tablet Take 0.5 tablets (0.25 mg total) by mouth 2 (two) times a week. Yes Historical Provider, carboxymethylcellulose (Carboxymethylcellulose Sodium) solution Apply 1 drop (0.05 mL total) to both eyes 4 (four) times a day as needed for dry eyes. Yes Historical Provider, ergocalciferol (vitamin D2, Ergocalciferol,) 1.25 MG (43556 UT) capsule Take 1 capsule (50,000 Units total) by mouth once a week. Yes Historical Provider, melatonin tablet Take 8 tablets (8 mg total) by mouth nightly. Yes Historical Provider, Tiotropium [place] Monohydrate (Spiriva Respimat) 2.5 MCG/ACT aerosol solution Inhale 2 puffs (5 mcg total) RT Daily. Yes Historical Provider, CURRENT Medications Current Facility-Administered Medications: acetaminophen (TYLENOL) tablet 650 mg, 650 mg, Oral, Q8H BERNARDO, Marion Perry MD, 650 mg at 11/18/22 0501 aspirin EC tablet 81 mg, 81 mg, Oral, Once a day, Marion Perry MD, 81 mg at 11/18/22 0858 bismuth subsalicylate (PEPTO BISMOL) 262 MG/15ML suspension 30 mL, 30 mL, Oral, Q6H PRN, Marion Perry MD, 30 mL at 11/05/22 2127 brimonidine (ALPHAGAN) 0.2 % ophthalmic solution 1 drop, 1 drop, Both Eyes, 3 times per day, Urban Perry MD, 1 drop at 11/18/22 0858 carvedilol (COREG) tablet 3.125 mg, 3.125 mg, Oral, 2 times per day, Raul Vo MD, 3.125 mg at11/18/22 0857 nicotine (NICODERM CQ) patch 21 mg, 21 mg, Transdermal, Once a day, 21 mg at 11/18/22 1000 AND Check Patch Placement, , Transdermal, 2 times per day, Marion Perry MD, Check Patch Placement at 11/18/22 1001 cholecalciferol (VITAMIN D3) capsule 50,000 Units, 50,000 Units, Oral, Weekly, Soto Meng MD, 50,000 Units at 11/13/22 0851 clopidogrel (PLAVIX) tablet 75 mg, 75 mg, Oral, Once a day, Marion Perry MD, 75 mg at 11/18/22 0857 cyclobenzaprine (FLEXERIL) tablet 5 mg, 5 mg, Oral, TID PRN, Raul Vo MD, 5 mg at 11/17/22 1251 dextrose (GLUTOSE) 40 % oral gel 15 g, 15 g, Oral, PRN, Marion Perry MD dextrose 50 % IV solution 12.5 g, 12.5 g, Intravenous, PRN OR dextrose 50 % IV solution 25 g, 25 g, Intravenous, PRN, Marion Perry MD Fluticasone-Salmeterol (AIRDUO RESPICLICK) 232-14 MCG/ACT inhaler 1 puff, 1 puff, Inhalation, RT BID, Marion Perry MD, 1 puff at 11/18/22 0858 gabapentin (NEURONTIN) capsule 200 mg, 200 mg, Oral, 3 times per day, Marion Perry MD, 200 mgat 11/18/22 0857 glipiZIDE (GLUCOTROL) tablet 5 mg, 5 mg, Oral, Once a day, Soto Meng MD, 5 mg at 11/18/22 0857 glucagon injection reconstituted solution 1 mg, 1 mg, Intramuscular, PRN, Marion Perry MD hemorrhoidal ointment, , Apply externally, TID PRN, Marion Perry MD, Given at 11/13/22 2118 heparin (porcine) injection 5,000 Units, 5,000 Units, Subcutaneous, Q8H BERNARDO, Marion Perry MD,5,000 Units at 11/18/22 0501 ibuprofen (MOTRIN) tablet 200 mg, 200 mg, Oral, Q6H PRN, Carolina Garibay MD, 200 mg at 11/17/22 1250 ipratropium-albuterol (DUO-NEB) 0.5-2.5 mg/3 mL nebulizer solution 3 mL, 3 mL, Inhalation, Q 4 hours PRN, Marion Perry MD, 3 mL at 11/02/22 2344 ketoconazole (NIZORAL) 2 % cream, , Topical, Once a day, Shorty Menard DPM, Given at 11/18/22 0858 lidocaine (LIDOCARE) 4 % patch 3 patch, 3 patch, Transdermal, Once a day, Carolina Garibay MD, 3 patch at 11/18/22 0859 melatonin tablet 9 mg, 9 mg, Oral, Nightly, Marion Perry MD, 9 mg at 11/17/22 2018 midodrine (PROAMATINE) tablet 5 mg, 5 mg, Oral, Q8H PRN, Raul Vo MD muscle rub (ICY HOT) 10-15 % cream, , Topical, 2 times per day, Carolina Garibay MD, Given at 11/18/22 0859 oxyCODONE (ROXICODONE) immediate release tablet 5 mg, 5 mg, Oral, Q4H PRN, Carolina Garibay MD, 5 mgat 11/17/22 1430 polyethylene glycol (MIRALAX) packet 17 g, 17 g, Oral, BID PRN, Carolina Garibay MD, 17 g at 11/04/22 2159 rosuvastatin (CRESTOR) tablet 40 mg, 40 mg, Oral, Once a day, Marion Perry MD, 40 mg at 11/18/22 0857 simethicone (MYLICON) chewable tablet 80 mg, 80 mg, Oral, 4x Daily PRN, Marion Perry MD, 80 mg at 10/31/22 1818 sodium chloride 0.9 % infusion, 75 mL/hr, Intravenous (Continuous Infusion), Continuous, Teresa Milner MD, Last Rate: 75 mL/hr at 11/18/22 1015, 75 mL/hr at 11/18/22 1015 tamsulosin (FLOMAX) 24 hr capsule 0.4 mg, 0.4 mg, Oral, After Breakfast, Marion Perry MD, 0.4mg at 11/18/22 0857 triamcinolone acetonide (KENALOG-40) injection 40 mg, 40 mg, Intra-articular, Once, Carolina Garibay MD Umeclidinium [place] (INCRUSE ELLIPTA) 62.5 MCG/ACT inhaler 62.5 mcg, 1 puff, Inhalation, RT Daily,Marion Perry MD, 62.5 mcg at 11/18/22 0856 DATA Vitals: 11/17/22 0919 11/17/22 1704 11/17/22 1920 11/18/22 0839 BP: 127/75 122/72 97/53 140/72 Pulse: 63 58 60 80 Resp: 18 18 18 Temp: 97.7 ??F (36.5 ??C) 98.2 ??F (36.8 ??C) 98.1 ??F (36.7 ??C) TempSrc: Oral Oral Oral SpO2: 93% 90% 97% Weight: Height: POC Glucose POC Glucose 11/18/22 0549 111 11/17/22 2106 143 11/17/22 1616 156 Weights (last 3 days) Date/Time Weight Height BSA (Calculated - sq m) 11/15/22 0237 229 lb (103.9 kg) 5' 11 (1.803 m) 2.28 sq meters @ANTICOAGSUMMARY@ @FLOWDATE(2706:LAST)@ Intake/Output Summary (Last 24 hours) at 11/18/2022 1046 Last data filed at 11/18/2022 0839 Gross per 24 hour Intake 1496 ml Output -- Net 1496 ml PHYSICAL EXAM General: Patient in no acute distress, awake, alert Head: Atraumatic/Normocephalic Respiratory: No use of accessory muscles Extremities: No visible swelling Skin: No rashes, no ulcers on visible skin Neuro: No obvious neurologic deficits Psych: mood appears appropriate LABS CBC with Differential: Lab Results Component Value Date WBC 11.8 (H) 11/16/2022 HGB 11.1 (L) 11/16/2022 HCT 35.5 11/16/2022 PLT 278 11/16/2022 MCV 94.4 11/16/2022 MCH 29.5 11/16/2022 MCHC 31.3 11/16/2022 RDW 14.5 11/16/2022 [ BMP: Lab Results Component Value Date NA 136 11/18/2022 K 5.5 (H) 11/18/2022 CL 100 11/18/2022 CO2 26 11/18/2022 BUN 63 (H) 11/18/2022 CREATININE 1.70 (H) 11/18/2022 GLUCOSE 122 (H) 11/18/2022 CALCIUM 9.9 11/18/2022 ANIONGAP 10 11/18/2022 MG/PHOS: No results found for: MG, PHOS CKMB: No components found for: CKMB;2 PT/INR: No results found for: LABPROT, INR BNP: No results found for: BNP Last 3 Troponin: No components found for: TROPONINI;3 U/A: No results found for: COLORU, CLARITYU, GLUCOSEU, BILIRUBINUR, KETONESU, SPECGRAV, BLOODU, PHUR, UROBILINOGEN, NITRITE, LEUKOCYTESUR, MUCUS, RBCUA, WBCUA CMP: Lab Results Component Value Date NA 136 11/18/2022 K 5.5 (H) 11/18/2022 CL 100 11/18/2022 CO2 26 11/18/2022 BUN 63 (H) 11/18/2022 CREATININE 1.70 (H) 11/18/2022 GLUCOSE 122 (H) 11/18/2022 CALCIUM 9.9 11/18/2022 ANIONGAP 10 11/18/2022 LFT's: No results found for: ALB, PROT Ionized Calcium: No components found for: IONCA ABG: No results found for: PHART, [id number], PO2ART, [id number], BEART, [id number] HgBA1c: No results found for: HGBA1C Lipid Panel: No results found for: CHOL, TRIG, HDL TSH: No results found for: TSH Lab Results Component Value Date GLUCOSE 122 (H) 11/18/2022 BUN 63 (H) 11/18/2022 CREATININE 1.70 (H) 11/18/2022 NA 136 11/18/2022 K 5.5 (H) 11/18/2022 CL 100 11/18/2022 CO2 26 11/18/2022 CALCIUM 9.9 11/18/2022 @RESU CBC: Recent Labs Lab Units 11/16/22 1227 WBC X(10)9/L BLOOD x10E9/L 11.8* HGB GM/DL BLOOD gm/dL 11.1* PLT CT X(10)9/L BLOOD x10E9/L 278 MCV FL BLOOD fl 94.4 BMP: Recent Labs Lab Units 11/18/22 0314 SODIUM MMOL/L BLOOD mmol/L 136 POTASSIUM MMOL/L BLOOD mmol/L 5.5* CHLORIDE mmol/L 100 CO2 mmol/L 26 BUN MG/DL BLOOD mg/dL 63* CREATININE mg/dL 1.70* GLUCOSE MG/DL BLOOD mg/dL 122* CALCIUM MG/DL BLOOD mg/dL 9.9 I reviewed the EKG tracing/Xray Recent Labs Lab Units 11/18/22 0314 SODIUM MMOL/L BLOOD mmol/L 136 POTASSIUM MMOL/L BLOOD mmol/L 5.5* CHLORIDE mmol/L 100 CO2 mmol/L 26 BUN MG/DL BLOOD mg/dL 63* CREATININE mg/dL 1.70* GLUCOSE MG/DL BLOOD mg/dL 122* CALCIUM MG/DL BLOOD mg/dL 9.9 ANION GAP BLOOD mmol/L 10 ASSESSMENT AND PLAN Principal Problem: Cerebrovascular accident Active Problems: Dysphagia Acute CVA Patient found to have a right acute on chronic MCA stroke and a SHEA ischemic stroke Patient received tPA in the ER Patient was admitted to the neuro ICU Patient was started on aspirin and Plavix Secondary stroke workup was completed Patient will be on 90 days of aspirin Plavix, end date 01/18/2023 Continue physical therapy Continue occupational therapy Physical medicine physician to oversee overall rehab program Hypertension BP on low side- off amlodipine/losartan held Low dose coreg- monitor Bradycardia Coreg with holding parameters Mild renal insufficiency Added Hyperkalemia- Plan Continue to hold losartan- was on 25 mg- Repeat Lokelma IV fluids, bladder scan Avoid hypotension D/w Dr Ruby-appreciate input Constipation- add scheduled Senna S/ Dulcolax once supp today- lokelma as above CAD Continue aspirin, coreg, plavix COPD Continue airduo Dysphagia Speech therapy DVT prophylaxis Continue heparin Code status Full code D/W patient , and attending physician about test results and treatment plan .No family in the room.Patient requiring monitoring of BP and HR while doing 3 hour intensive exercises to avoid fluctuations and hypotension . Aswell as monitoring of nutritional and fluid status , by weights, leg edema .Notified staff and patient to notify me of any change inconditions or new problems * Carolina Garibay MD - 11/18/2022 10:42 AM CDT PM&R PROGRESS NOTE This is Face to Face Visit note Esperanza Chaparro is a 67 y.o. male patient. no c/o back pain , more hip and arm pain today REVIEW OF FUNCTIONAL STATUS SM Functional Status PT Data (since 11/15/2022) Value Time User Bed Mobility Comment Supine in bed: rolls left with use of left handrail, cues to bend right leg and push: min/mod assist to complete motion. Use of drawsheet for max/total rolling to right side due to pt resists due to left shoulder pain. Pillow support between legs to control left leg, assist with left groin pain. 11/17/2022 10:48 AM Irlanda Sher, PT Functional Status OT Data (since 11/15/2022) None ORAL HYGIENE: supervision, occasional cues for thoroughness; pt uses R hand only TOILETING: dependent for using urinal while seated in w/c (pt was not able to void). BATHING: UB sponge bathing while seated in w/c, mas assist; pt was able to wash his face with cues for thoroughness; assist needed for washing underarms, arms and chest UB DRESSING: max assist; pt helps minimally with donning shirt over head and doffing shirt from left arm Patient Active Problem List Diagnosis Cerebrovascular accident Chronic obstructive pulmonary disease Coronary arteriosclerosis Primary hypertension Dysphagia Past Medical History: Diagnosis Date Cancer Heart disease Stroke Current Facility-Administered Medications: acetaminophen (TYLENOL) tablet 650 mg, 650 mg, Oral, Q8H BERNARDO, Marion Perry MD, 650 mg at 11/18/22 0501 aspirin EC tablet 81 mg, 81 mg, Oral, Once a day, Marion Perry MD, 81 mg at 11/18/22 0858 bismuth subsalicylate (PEPTO BISMOL) 262 MG/15ML suspension 30 mL, 30 mL, Oral, Q6H PRN, Marion Perry MD, 30 mL at 11/05/22 2127 brimonidine (ALPHAGAN) 0.2 % ophthalmic solution 1 drop, 1 drop, Both Eyes, 3 times per day, Urban Perry MD, 1 drop at 11/18/22 0858 carvedilol (COREG) tablet 3.125 mg, 3.125 mg, Oral, 2 times per day, Raul Vo MD, 3.125 mg at11/18/22 0857 nicotine (NICODERM CQ) patch 21 mg, 21 mg, Transdermal, Once a day, 21 mg at 11/18/22 1000 AND Check Patch Placement, , Transdermal, 2 times per day, Marion Perry MD, Check Patch Placement at 11/18/22 1001 cholecalciferol (VITAMIN D3) capsule 50,000 Units, 50,000 Units, Oral, Weekly, Soto Meng MD, 50,000 Units at 11/13/22 0851 clopidogrel (PLAVIX) tablet 75 mg, 75 mg, Oral, Once a day, Marion Perry MD, 75 mg at 11/18/22 0857 cyclobenzaprine (FLEXERIL) tablet 5 mg, 5 mg, Oral, TID PRN, Raul Vo MD, 5 mg at 11/17/22 1251 dextrose (GLUTOSE) 40 % oral gel 15 g, 15 g, Oral, PRN, Marion Perry MD dextrose 50 % IV solution 12.5 g, 12.5 g, Intravenous, PRN OR dextrose 50 % IV solution 25 g, 25 g, Intravenous, PRN, Marion Perry MD Fluticasone-Salmeterol (AIRDUO RESPICLICK) 232-14 MCG/ACT inhaler 1 puff, 1 puff, Inhalation, RT BID, Marion Perry MD, 1 puff at 11/18/22 0858 gabapentin (NEURONTIN) capsule 200 mg, 200 mg, Oral, 3 times per day, Marion Perry MD, 200 mgat 11/18/22 0857 glipiZIDE (GLUCOTROL) tablet 5 mg, 5 mg, Oral, Once a day, Soto Meng MD, 5 mg at 11/18/22 0857 glucagon injection reconstituted solution 1 mg, 1 mg, Intramuscular, PRN, Marion Perry MD hemorrhoidal ointment, , Apply externally, TID PRN, Marion Perry MD, Given at 11/13/22 2118 heparin (porcine) injection 5,000 Units, 5,000 Units, Subcutaneous, Q8H BERNARDO, Marion Perry MD,5,000 Units at 11/18/22 0501 ibuprofen (MOTRIN) tablet 200 mg, 200 mg, Oral, Q6H PRN, Carolina Garibay MD, 200 mg at 11/17/22 1250 ipratropium-albuterol (DUO-NEB) 0.5-2.5 mg/3 mL nebulizer solution 3 mL, 3 mL, Inhalation, Q 4 hours PRN, Marion Perry MD, 3 mL at 11/02/22 2344 ketoconazole (NIZORAL) 2 % cream, , Topical, Once a day, Shorty Menard DPM, Given at 11/18/22 0858 lidocaine (LIDOCARE) 4 % patch 3 patch, 3 patch, Transdermal, Once a day, Carolina Garibay MD, 3 patch at 11/18/22 0859 melatonin tablet 9 mg, 9 mg, Oral, Nightly, Marion Perry MD, 9 mg at 11/17/222017 midodrine (PROAMATINE) tablet 5 mg, 5 mg, Oral, Q8H PRN, Raul Vo MD muscle rub (ICY HOT) 10-15 % cream, , Topical, 2 times per day, Carolina Garibay MD, Given at 11/18/22 0859 oxyCODONE (ROXICODONE) immediate release tablet 5 mg, 5 mg, Oral, Q4H PRN, Carolina Garibay MD, 5 mgat 11/17/22 1430 polyethylene glycol (MIRALAX) packet 17 g, 17 g, Oral, BID PRN, Carolina Garibay MD, 17 g at 11/04/22 2159 rosuvastatin (CRESTOR) tablet 40 mg, 40 mg, Oral, Once a day, Marion Perry MD, 40 mg at 11/18/22 0857 simethicone (MYLICON) chewable tablet 80 mg, 80 mg, Oral, 4x Daily PRN, Marion Perry MD, 80 mg at 10/31/22 1818 sodium chloride 0.9 % infusion, 75 mL/hr, Intravenous (Continuous Infusion), Continuous, Teresa Milner MD, Last Rate: 75 mL/hr at 11/18/22 1015, 75 mL/hr at 11/18/22 1015 tamsulosin (FLOMAX) 24 hr capsule 0.4 mg, 0.4 mg, Oral, After Breakfast, Marion Perry MD, 0.4mg at 11/18/22 0857 triamcinolone acetonide (KENALOG-40) injection 40 mg, 40 mg, Intra-articular, Once, Carolina Garibay MD Umeclidinium [place] (INCRUSE ELLIPTA) 62.5 MCG/ACT inhaler 62.5 mcg, 1 puff, Inhalation, RT Daily,Marion Perry MD, 62.5 mcg at 11/18/22 0856 Review of Systems: Review of Systems Constitutional: Negative for fatigue. HENT: Negative for congestion. Eyes: Negative for discharge. Respiratory: Negative for apnea. Cardiovascular: Positive for leg swelling. Gastrointestinal: Negative for abdominal distention. Genitourinary: Negative for difficulty urinating. Musculoskeletal: Positive for arthralgias. Skin: Negative for color change. Neurological: Positive for weakness. Psychiatric/Behavioral: The patient is nervous/anxious. Physical Exam Vitals: 11/18/22 0839 BP: 140/72 Pulse: 80 Resp: 18 Temp: 98.1 ??F (36.7 ??C) SpO2: 97% Physical Exam Constitutional: General: He is not in acute distress. HENT: Head: Atraumatic. Eyes: Conjunctiva/sclera: Conjunctivae normal. Cardiovascular: Rate and Rhythm: Normal rate. Pulmonary: Effort: Pulmonary effort is normal. Abdominal: General: There is no distension. Skin: Findings: No erythema. Neurological: Coordination: Coordination abnormal. Neurologic Exam Mental Status Oriented to person. Lab Data Reviewed current lab results available to me today. Lab Results Component Value Date WBC 11.8 (H) 11/16/2022 HGB 11.1 (L) 11/16/2022 HCT 35.5 11/16/2022 MCV 94.4 11/16/2022 PLT 278 11/16/2022 Lab Results Component Value Date GLUCOSE 122 (H) 11/18/2022 CALCIUM 9.9 11/18/2022 NA 136 11/18/2022 K 5.5 (H) 11/18/2022 CO2 26 11/18/2022 CL 100 11/18/2022 BUN 63 (H) 11/18/2022 CREATININE 1.70 (H) 11/18/2022 ANIONGAP 10 11/18/2022 Imaging Reviewed current imaging results available to me today. No results found. Assessment & Plan: Esperanza Chaparro is a 67 y.o. male patient with Cerebrovascular accident functional impairment for rehab Cerebrovascular accident L sided hemiplegia ( dense ) Left face droop Dysarthria SNF discharge - on aspirin, Plavix 90 days, statin - gabapentin for neuropathy, 200 mg t.i.d., scheduled Tylenol DIET: Dietary Orders (From admission, onward) Start Ordered 10/29/22 1700 Nutritional supplement Oral 3 times daily with meals Comments: Send vanilla ensure high protein TID End/Expires: Until Specified Question Answer Comment Administration Route: Oral Place order in third constitution party system. Done 10/29/22 1346 10/28/222111 Adult Diet Regular; 6 Soft & Bite-Sized (NDD III); 0 Thin (All Liquids) Diet effective now End/Expires: Until Specified References: IDDSI Website Question Answer Comment Diet Type: Regular Diet Texture: 6 Soft & Bite-Sized (NDD III) Liquid Consistency: 0 Thin (All Liquids) Place order in third constitution party system. 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 On modified diet IVF dced on 11/06 # Gout : Stable On PRN Ibuprofen # DMII On oral meds # HTN - continue amlodipine and losartan #CAD s/p PCI - continue ASA, statin # COPD - home inhalers, duonebs prn # Pain: Oxy and Lidoderm Left hip XR on 11/06 Mild symmetric degenerative change the hip joints are present with minimal joint space narrowing. Lidoderm [facility]: DC SN[facility] CAROLINA GARIBAY MD * Carolina Garibay MD - 11/17/2022 11:44 AM CDT PM&R PROGRESS NOTE This is Face to Face Visit note Esperanza Chaparro is a 67 y.o. male patient. c/o knee / back pain REVIEW OF FUNCTIONAL STATUS SM Functional Status PT Data (since 11/14/2022) Value Time User Bed Mobility Comment Supine in bed: rolls left with use of left handrail, cues to bend right leg and push: min/mod assist to complete motion. Use of drawsheet for max/total rolling to right side due to pt resists due to left shoulder pain. Pillow support between legs to control left leg, assist with left groin pain. 11/17/2022 10:48 AM Irlanda Sher, PT Functional Status OT Data (since 11/14/2022) None Patient Active Problem List Diagnosis Cerebrovascular accident Chronic obstructive pulmonary disease Coronary arteriosclerosis Primary hypertension Dysphagia Past Medical History: Diagnosis Date Cancer Heart disease Stroke Current Facility-Administered Medications: acetaminophen (TYLENOL) tablet 650 mg, 650 mg, Oral, Q8H BERNARDO, Marion Perry MD, 650 mg at 11/17/22 0548 aspirin EC tablet 81 mg, 81 mg, Oral, Once a day, Marion Perry MD, 81 mg at 11/17/22 0849 bismuth subsalicylate (PEPTO BISMOL) 262 MG/15ML suspension 30 mL, 30 mL, Oral, Q6H PRN, Marion Perry MD, 30 mL at 11/05/227 brimonidine (ALPHAGAN) 0.2 % ophthalmic solution 1 drop, 1 drop, Both Eyes, 3 times per day, Urban Perry MD, 1 drop at 11/17/22826 calcium carbonate (TUMS) chewable tablet 1,000 mg, 1,000 mg, Oral, Q2H PRN, Marion Perry MD, 1,000 mg at 11/01/22 1313 carvedilol (COREG) tablet 3.125 mg, 3.125 mg, Oral, 2 times per day, Raul Vo MD, 3.125 mg at11/17/22824 nicotine (NICODERM CQ) patch 21 mg, 21 mg, Transdermal, Once a day, 21 mg at 11/17/22827 AND Check Patch Placement, , Transdermal, 2 times per day, Marion Perry MD, Check Patch Placement at 11/17/22827 cholecalciferol (VITAMIN D3) capsule 50,000 Units, 50,000 Units, Oral, Weekly, Soto Meng MD, 50,000 Units at 11/13/22850 clopidogrel (PLAVIX) tablet 75 mg, 75 mg, Oral, Once a day, Marion Perry MD, 75 mg at 11/17/22824 cyclobenzaprine (FLEXERIL) tablet 5 mg, 5 mg, Oral, TID PRN, Raul Vo MD, 5 mg at 11/14/222113 dextrose (GLUTOSE) 40 % oral gel 15 g, 15 g, Oral, PRN, Marion Perry MD dextrose 50 % IV solution 12.5 g, 12.5 g, Intravenous, PRN OR dextrose 50 % IV solution 25 g, 25 g, Intravenous, PRN, Marion Perry MD Fluticasone-Salmeterol (AIRDUO RESPICLICK) 232-14 MCG/ACT inhaler 1 puff, 1 puff, Inhalation, RT BID, Marion Perry MD, 1 puff at 11/17/22826 gabapentin (NEURONTIN) capsule 200 mg, 200 mg, Oral, 3 times per day, Marion Perry MD, 200 mgat 07/11/23 0825 glipiZIDE (GLUCOTROL) tablet 5 mg, 5 mg, Oral, Once a day, Soto Meng MD, 5 mg at 11/17/22 0826 glucagon injection reconstituted solution 1 mg, 1 mg, Intramuscular, PRN, Marion Perry MD hemorrhoidal ointment, , Apply externally, TID PRN, Marion Perry MD, Given at 11/13/22 211 heparin (porcine) injection 5,000 Units, 5,000 Units, Subcutaneous, Q8H BERNARDO, Marion Perry MD,5,000 Units at 11/17/22 0549 ibuprofen (MOTRIN) tablet 200 mg, 200 mg, Oral, Q6H PRN, Carolina Garibay MD ipratropium-albuterol (DUO-NEB) 0.5-2.5 mg/3 mL nebulizer solution 3 mL, 3 mL, Inhalation, Q 4 hours PRN, Marion Perry MD, 3 mL at 11/02/22 2344 ketoconazole (NIZORAL) 2 % cream, , Topical, Once a day, Shorty Menard DPM, Given at 11/17/22826 lidocaine (LIDOCARE) 4 % patch 3 patch, 3 patch, Transdermal, Once a day, Carolina Garibay MD, 3 patch at 11/17/22 08 melatonin tablet 9 mg, 9 mg, Oral, Nightly, Marion Perry MD, 9 mg at 11/16/22 220 midodrine (PROAMATINE) tablet 5 mg, 5 mg, Oral, Q8H PRN, Raul Vo MD muscle rub (ICY HOT) 10-15 % cream, , Topical, 2 times per day, Carolina Garibay MD, Given at 11/17/22 08 oxyCODONE (ROXICODONE) immediate release tablet 5 mg, 5 mg, Oral, Q4H PRN, Carolina Garibay MD, 5 mgat 11/17/22 0945 polyethylene glycol (MIRALAX) packet 17 g, 17 g, Oral, BID PRN, Carolina Garibay MD, 17 g at 11/04/22 215 rosuvastatin (CRESTOR) tablet 40 mg, 40 mg, Oral, Once a day, Marion Perry MD, 40 mg at 11/17/22 08 simethicone (MYLICON) chewable tablet 80 mg, 80 mg, Oral, 4x Daily PRN, Marion Perry MD, 80 mg at 10/31/221817 tamsulosin (FLOMAX) 24 hr capsule 0.4 mg, 0.4 mg, Oral, After Breakfast, Marion Perry MD, 0.4mg at 11/17/22 08 triamcinolone acetonide (KENALOG-40) injection 40 mg, 40 mg, Intra-articular, Once, Carolina Garibay MD Umeclidinium [place] (INCRUSE ELLIPTA) 62.5 MCG/ACT inhaler 62.5 mcg, 1 puff, Inhalation, RT Daily,Marion Perry MD, 62.5 mcg at 11/17/22 08 Review of Systems: Review of Systems Constitutional: Negative for fatigue. HENT: Negative for congestion. Eyes: Negative for discharge. Respiratory: Negative for apnea. Cardiovascular: Positive for leg swelling. Gastrointestinal: Negative for abdominal distention. Genitourinary: Negative for difficulty urinating. Musculoskeletal: Positive for arthralgias. Skin: Negative for color change. Neurological: Positive for weakness. Psychiatric/Behavioral: The patient is nervous/anxious. Physical Exam Vitals: 11/17/22 0919 BP: 127/75 Pulse: 63 Resp: 18 Temp: 97.7 ??F (36.5 ??C) SpO2: 93% Physical Exam Constitutional: General: He is not in acute distress. HENT: Head: Atraumatic. Eyes: Conjunctiva/sclera: Conjunctivae normal. Cardiovascular: Rate and Rhythm: Normal rate. Pulmonary: Effort: Pulmonary effort is normal. Abdominal: General: There is no distension. Skin: Findings: No erythema. Neurological: Coordination: Coordination abnormal. Neurologic Exam Mental Status Oriented to person. Lab Data Reviewed current lab results available to me today. Lab Results Component Value Date WBC 11.8 (H) 11/16/2022 HGB 11.1 (L) 11/16/2022 HCT 35.5 11/16/2022 MCV 94.4 11/16/2022 PLT 278 11/16/2022 Lab Results Component Value Date GLUCOSE 151 (H) 11/16/2022 CALCIUM 10.5 (H) 11/16/2022 NA 137 11/16/2022 K 5.9 (H) 11/16/2022 CO2 29 11/16/2022 CL 99 11/16/2022 BUN 48 (H) 11/16/2022 CREATININE 1.64 (H) 11/16/2022 ANIONGAP 9 11/16/2022 Imaging Reviewed current imaging results available to me today. No results found. Assessment & Plan: Esperanza Chaparro is a 67 y.o. 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 Done 10/29/22 1346 10/28/22 2112 Adult Diet Regular; 6 Soft & Bite-Sized (NDD III); 0 Thin (All Liquids) Diet effective now End/Expires: Until Specified References: IDDSI Website Question Answer Comment Diet Type: Regular Diet Texture: 6 Soft & Bite-Sized (NDD III) Liquid Consistency: 0 Thin (All Liquids) Place order in third constitution party system. 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 On modified diet IVF dced on 11/06 # Gout : Stable On PRN Ibuprofen # DMII On oral meds # HTN - continue amlodipine and losartan #CAD s/p PCI - continue ASA, statin # COPD - home inhalers, duonebs prn # Pain: Oxy and Lidoderm Left hip XR on 11/06 Mild symmetric degenerative change the hip joints are present with minimal joint space narrowing. Lidoderm Team Conference: 11/17/2022 Please refer to team conference note from today for details Case discussed with addiction social worker/ PT/OT/nursing . 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 BP, BS , HR, labs, strength. .Chief Complaint Renal 42/1.5 Hr 50s BP low DC norvasc Decrease dose of coreg and cozaar strength improving, able to do therapy ok. No chest pain, no SOB, no dizziness, no palpitations, no new neurologic symptoms. No cough, No nausea or vomiting, No abdominal pain. History also obtained from Nurse and staff about how the patient did overnight and during the day strength improving, able to do therapy ok. Brief 10/31: Patient seen and examined this morning. Patient complaining of uncontrolled pain. Follow up with PM&R for further recommendations. Continue current medical management. 11/01: Patient seen and examined this afternoon. Patient continues to complain of uncontrolled pain.Follow up with PM&R for further recommendations. Have placed orders for Flexeril 5 mg TID PRN. Continue current medical management. 11/02: Patient seen and examined this morning. Patient complaining of uncontrolled pain. Follow up with PM&R for further recommendations. Patient has been having great toe pain. Possibly patient has gout. Follow up uric acid. Follow up Podiatry further recommendations regarding foot care. Continue current medical management. 11/03:Patient seen and examined this morning. Vitals and labs reviewed. Resting comfortably. No acute events overnight. Continue current medical management. 11/04 BP up once No complaints Doing better in therapy 11/05 No events reported Vitals/labs reviewed Participating with therapy 11/06 The patient was seen in the room this afternoon. The patient currently does not report any chest pain, shortness present nausea or vomiting No reported issues from the floor nurse. The most recent labs and vital signs were reviewed. 11/07 Patient seen and examined Doing fine No new issues to report Labs/vitals reviewed 11/08 Patient seen and examined Doing fine No new issues to report Labs/vitals reviewed 11/09 Patient seen and examined Doing ok No new issues to report Vitals reviewed Labs unremarkable 11/10 Patient seen and examined Doing alright No new issues to report Vitals reviewed 11/11 Patient seen and examined Doing fine No new issues to report Labs/vitals reviewed Family at bedside 11/12 The patient was seen and examined this morning. Patient appears to be in good spirits. Based on most recent notes, patient has been actively involved in therapy. Nursing has not reported any major issues throughout the day. The patient has not reported any chest pain, nausea, vomiting, or difficulty breathing. 11/13 Patient seen and examined Doing fine No new issues to report Resting comfortably 11/14 Patient seen and examined Doing alright No new issues to report Vitals reviewed 11/15 Patient seen and examined Doing fine at this time Labs/vitals reviewed Resting comfortably 11/16: Patient seen and examined this morning. Patient's blood pressure continues to run low. Have placed orders for midodrine PRN. No acute events overnight. Continue current medical management. Pending blood work. 11/17 The patient is also being seen for follow-up of all current problems, BP, BS , HR, labs and strength. Follow up on pain, swallowing, bladder and bowel function. Labs and VS reviewed. patient slept ok last night. Appetite and PO ok. Strength improving in therapy Patient seen and evaluated on daily rounds. No overnight events reported. Patent participating withtherapy and cares. Patient denies any chest pain no palpitations no shortness of breath no cough. Vitals ok Labs noted elevated potassium istory Patient is a 67-year-old male with past medical history of CAD, COPD, hypertension, diabetes, sleepapnea, colon cancer status post colectomy who was transferred to [facility] with new neurologicaldeficits. Imaging confirmed acute on chronic right MCA and SHEA stroke. Patient did receive tPA in the ER. Patient was admitted to the neuro ICU. Patient's clinical condition stabilized. Patient was kept on aspirin Plavix for 90 days. Patient was started on statin. Patient is on Jardiance. Secondarystroke workup was completed. Patient also did complete a course of Unasyn for peritonsillar abscess. Patient worked with physical therapy and occupational therapy. Acute inpatient rehab was recommende d. HOME Medications Prior to Admission medications Medication Sig Start Date End Date Taking? Authorizing Provider Brinzolamide-Brimonidine 1-0.2 % suspension Administer 1 drop into both eyes 3 (three) times a day.Yes Historical Provider, budesonide-formoterol (SYMBICORT) 160-4.5 MCG/ACT inhaler Inhale 2 puffs RT 2 (two) times a day. Yes Historical Provider, cabergoline (DOSTINEX) 0.5 MG tablet Take 0.5 tablets (0.25 mg total) by mouth 2 (two) times a week. Yes Historical Provider, carboxymethylcellulose (Carboxymethylcellulose Sodium) solution Apply 1 drop (0.05 mL total) to both eyes 4 (four) times a day as needed for dry eyes. Yes Historical Provider, ergocalciferol (vitamin D2, Ergocalciferol,) 1.25 MG (69932 UT) capsule Take 1 capsule (50,000 Units total) by mouth once a week. Yes Historical Provider, melatonin tablet Take 8 tablets (8 mg total) by mouth nightly. Yes Historical Provider, Tiotropium [place] Monohydrate (Spiriva Respimat) 2.5 MCG/ACT aerosol solution Inhale 2 puffs (5 mcg total) RT Daily. Yes Historical Provider, CURRENT Medications Current Facility-Administered Medications: acetaminophen (TYLENOL) tablet 650 mg, 650 mg, Oral, Q8H BERNARDO, Marion Perry MD, 650 mg at 11/17/22 0548 aspirin EC tablet 81 mg, 81 mg, Oral, Once a day, Marion Perry MD, 81 mg at 11/17/22 0849 bismuth subsalicylate (PEPTO BISMOL) 262 MG/15ML suspension 30 mL, 30 mL, Oral, Q6H PRN, Marion Perry MD, 30 mL at 11/05/22 2127 brimonidine (ALPHAGAN) 0.2 % ophthalmic solution 1 drop, 1 drop, Both Eyes, 3 times per day, Urban Perry MD, 1 drop at 11/17/22 08 calcium carbonate (TUMS) chewable tablet 1,000 mg, 1,000 mg, Oral, Q2H PRN, Marion Perry MD, 1,000 mg at 11/01/22 1313 carvedilol (COREG) tablet 3.125 mg, 3.125 mg, Oral, 2 times per day, Raul Vo MD, 3.125 mg at11/17/22824 nicotine (NICODERM CQ) patch 21 mg, 21 mg, Transdermal, Once a day, 21 mg at 11/17/22827 AND Check Patch Placement, , Transdermal, 2 times per day, Marion Perry MD, Check Patch Placement at 11/17/22827 cholecalciferol (VITAMIN D3) capsule 50,000 Units, 50,000 Units, Oral, Weekly, Soto Meng MD, 50,000 Units at 11/13/22 08 clopidogrel (PLAVIX) tablet 75 mg, 75 mg, Oral, Once a day, Marion Perry MD, 75 mg at 11/17/22824 cyclobenzaprine (FLEXERIL) tablet 5 mg, 5 mg, Oral, TID PRN, Raul Vo MD, 5 mg at 11/14/222113 dextrose (GLUTOSE) 40 % oral gel 15 g, 15 g, Oral, PRN, Marion Perry MD dextrose 50 % IV solution 12.5 g, 12.5 g, Intravenous, PRN OR dextrose 50 % IV solution 25 g, 25 g, Intravenous, PRN, Marion Perry MD Fluticasone-Salmeterol (AIRDUO RESPICLICK) 232-14 MCG/ACT inhaler 1 puff, 1 puff, Inhalation, RT BID, Marion Perry MD, 1 puff at 11/17/22826 gabapentin (NEURONTIN) capsule 200 mg, 200 mg, Oral, 3 times per day, Marion Perry MD, 200 mgat 11/17/22824 glipiZIDE (GLUCOTROL) tablet 5 mg, 5 mg, Oral, Once a day, Soto Meng MD, 5 mg at 11/17/22 08 glucagon injection reconstituted solution 1 mg, 1 mg, Intramuscular, PRN, Marion Perry MD hemorrhoidal ointment, , Apply externally, TID PRN, Marion Perry MD, Given at 11/13/222117 heparin (porcine) injection 5,000 Units, 5,000 Units, Subcutaneous, Q8H BERNARDO, Marion Perry MD,5,000 Units at 11/17/22 0549 ibuprofen (MOTRIN) tablet 200 mg, 200 mg, Oral, Q6H PRN, Carolina Garibay MD ipratropium-albuterol (DUO-NEB) 0.5-2.5 mg/3 mL nebulizer solution 3 mL, 3 mL, Inhalation, Q 4 hours PRN, Marion Perry MD, 3 mL at 11/02/22 2344 ketoconazole (NIZORAL) 2 % cream, , Topical, Once a day, Shorty Menard DPM, Given at 11/17/22826 lidocaine (LIDOCARE) 4 % patch 3 patch, 3 patch, Transdermal, Once a day, Carolina Garibay MD, 3 patch at 11/17/22 08 losartan (COZAAR) tablet 25 mg, 25 mg, Oral, Once a day, Valencia Johnson MD, 25 mg at 11/17/22 08 melatonin tablet 9 mg, 9 mg, Oral, Nightly, Marion Perry MD, 9 mg at 11/16/22 220 midodrine (PROAMATINE) tablet 5 mg, 5 mg, Oral, Q8H PRN, Raul Vo MD muscle rub (ICY HOT) 10-15 % cream, , Topical, 2 times per day, Carolina Garibay MD, Given at 11/17/22826 oxyCODONE (ROXICODONE) immediate release tablet 5 mg, 5 mg, Oral, Q4H PRN, Carolina Garibay MD, 5 mgat 11/17/22 0945 polyethylene glycol (MIRALAX) packet 17 g, 17 g, Oral, BID PRN, Carolina Garibay MD, 17 g at 11/04/22 215 rosuvastatin (CRESTOR) tablet 40 mg, 40 mg, Oral, Once a day, Marion Perry MD, 40 mg at 11/17/22 08 simethicone (MYLICON) chewable tablet 80 mg, 80 mg, Oral, 4x Daily PRN, Marion Perry MD, 80 mg at 10/31/22 1818 tamsulosin (FLOMAX) 24 hr capsule 0.4 mg, 0.4 mg, Oral, After Breakfast, Marion Perry MD, 0.4mg at 11/17/22 0826 triamcinolone acetonide (KENALOG-40) injection 40 mg, 40 mg, Intra-articular, Once, Caroilna Garibay MD Umeclidinium [place] (INCRUSE ELLIPTA) 62.5 MCG/ACT inhaler 62.5 mcg, 1 puff, Inhalation, RT Daily,Marion Perry MD, 62.5 mcg at 11/17/22 08 DATA Vitals: 11/16/22 0944 11/16/22 1749 11/16/22 1930 11/17/22 0919 BP: (!) 89/60 93/59 113/69 127/75 Pulse: (!) 47 53 63 Resp: Temp: 97.5 ??F (36.4 ??C) 97.7 ??F (36.5 ??C) TempSrc: Oral Oral SpO2: 92% 93% Weight: Height: POC Glucose POC Glucose 11/17/22 0621 139 11/16/22 1625 180 11/16/22 1118 180 Weights (last 3 days) Date/Time Weight Height BSA (Calculated - sq m) 11/15/22 0237 229 lb (103.9 kg) 5' 11 (1.803 m) 2.28 sq meters @ANTICOAGSUMMARY@ @FLOWDATE(2706:LAST)@ Intake/Output Summary (Last 24 hours) at 11/17/2022 1035 Last data filed at 11/17/2022 0919 Gross per 24 hour Intake 1196 ml Output -- Net 1196 ml PHYSICAL EXAM General: Patient in no acute distress, awake, alert Head: Atraumatic/Normocephalic Respiratory: No use of accessory muscles Extremities: No visible swelling Skin: No rashes, no ulcers on visible skin Neuro: No obvious neurologic deficits Psych: mood appears appropriate LABS CBC with Differential: Lab Results Component Value Date WBC 11.8 (H) 11/16/2022 HGB 11.1 (L) 11/16/2022 HCT 35.5 11/16/2022 PLT 278 11/16/2022 MCV 94.4 11/16/2022 MCH 29.5 11/16/2022 MCHC 31.3 11/16/2022 RDW 14.5 11/16/2022 [ BMP: Lab Results Component Value Date NA 137 11/16/2022 K 5.9 (H) 11/16/2022 CL 99 11/16/2022 CO2 29 11/16/2022 BUN 48 (H) 11/16/2022 CREATININE 1.64 (H) 11/16/2022 GLUCOSE 151 (H) 11/16/2022 CALCIUM 10.5 (H) 11/16/2022 ANIONGAP 9 11/16/2022 MG/PHOS: No results found for: MG, PHOS CKMB: No components found for: CKMB;2 PT/INR: No results found for: LABPROT, INR BNP: No results found for: BNP Last 3 Troponin: No components found for: TROPONINI;3 U/A: No results found for: COLORU, CLARITYU, GLUCOSEU, BILIRUBINUR, KETONESU, SPECGRAV, BLOODU, PHUR, UROBILINOGEN, NITRITE, LEUKOCYTESUR, MUCUS, RBCUA, WBCUA CMP: Lab Results Component Value Date NA 137 11/16/2022 K 5.9 (H) 11/16/2022 CL 99 11/16/2022 CO2 29 11/16/2022 BUN 48 (H) 11/16/2022 CREATININE 1.64 (H) 11/16/2022 GLUCOSE 151 (H) 11/16/2022 CALCIUM 10.5 (H) 11/16/2022 ANIONGAP 9 11/16/2022 LFT's: No results found for: ALB, PROT Ionized Calcium: No components found for: IONCA ABG: No results found for: PHART, JNL3IVO, PO2ART, SDO8YNC, BEART, G9OXMSHJ HgBA1c: No results found for: HGBA1C Lipid Panel: No results found for: CHOL, TRIG, HDL TSH: No results found for: TSH Lab Results Component Value Date GLUCOSE 151 (H) 11/16/2022 BUN 48 (H) 11/16/2022 CREATININE 1.64 (H) 11/16/2022 NA 137 11/16/2022 K 5.9 (H) 11/16/2022 CL 99 11/16/2022 CO2 29 11/16/2022 CALCIUM 10.5 (H) 11/16/2022 @RESU CBC: Recent Labs Lab Units 11/16/22 1227 WBC X(10)9/L BLOOD x10E9/L 11.8* HGB GM/DL BLOOD gm/dL 11.1* PLT CT X(10)9/L BLOOD x10E9/L 278 MCV FL BLOOD fl 94.4 BMP: Recent Labs Lab Units 11/16/22 0004 SODIUM MMOL/L BLOOD mmol/L 137 POTASSIUM MMOL/L BLOOD mmol/L 5.9* CHLORIDE mmol/L 99 CO2 mmol/L 29 BUN MG/DL BLOOD mg/dL 48* CREATININE mg/dL 1.64* GLUCOSE MG/DL BLOOD mg/dL 151* CALCIUM MG/DL BLOOD mg/dL 10.5* I reviewed the EKG tracing/Xray Recent Labs Lab Units 11/16/22 0004 SODIUM MMOL/L BLOOD mmol/L 137 POTASSIUM MMOL/L BLOOD mmol/L 5.9* CHLORIDE mmol/L 99 CO2 mmol/L 29 BUN MG/DL BLOOD mg/dL 48* CREATININE mg/dL 1.64* GLUCOSE MG/DL BLOOD mg/dL 151* CALCIUM MG/DL BLOOD mg/dL 10.5* ANION GAP BLOOD mmol/L 9 ASSESSMENT AND PLAN Principal Problem: Cerebrovascular accident Active Problems: Dysphagia Acute CVA Patient found to have a right acute on chronic MCA stroke and a SHEA ischemic stroke Patient received tPA in the ER Patient was admitted to the neuro ICU Patient was started on aspirin and Plavix Secondary stroke workup was completed Patient will be on 90 days of aspirin Plavix, end date 01/18/2023 Continue physical therapy Continue occupational therapy Physical medicine physician to oversee overall rehab program Hypertension Continue amlodipine 10 mg daily Bp low- dc norvasc DC IVF Bradycardia Decrease dose of coreg Mild renal insufficiency JUST finished IVF Inc po fluids F/U labs Hyperkalemia- hold losartan- was on 25 mg- F/u labs If >5-lokelma CAD Continue aspirin, coreg, plavix COPD Continue airduo Dysphagia Speech therapy DVT prophylaxis Continue heparin Code status Full code D/W patient , and attending physician about test results and treatment plan .No family in the room.Patient requiring monitoring of BP and HR while doing 3 hour intensive exercises to avoid fluctuations and hypotension . Aswell as monitoring of nutritional and fluid status , by weights, leg edema .Notified staff and patient to notify me of any change inconditions or new problems * Luke Elizalde, RD - 11/17/2022 9:33 AM CDT CLINICAL NUTRITION REASSESSMENT: Pt seen for follow up. Pt reports appetite is good, c/o food is mush. Denies GI complaints. Receiving Soft Bite Sized (6)/Advanced Soft/Dysphagia 3 diet, recorded po intake averaged 75% x 9 meals. Ptreports drinking Ensure; pt receives he is receiving the correct flavor. Ensure High Protein for Muscle Health provides 160 calories ,16 grams protein and 19 grams of carb per 8 oz serving. Weight up4 lbs in past week. K+ elevated. BUN/Cr elevated. Blood sugars controlled, receiving glipizide. Skin care continues. Bowels moving. No new meds. Patient Active Problem List Diagnosis Cerebrovascular accident Chronic obstructive pulmonary disease Coronary arteriosclerosis Primary hypertension Dysphagia H/o HLD, DM, JAMES, colon cancer Weight: Admit Weight: 228 lb 4 oz (103.5 kg) (10/28/222211) Weight Method: Bed scale (10/28/222211) Latest Weight: 229 lb (103.9 kg) (11/15/22236) Weight Method: Bed scale (11/15/22 023) Weight Comment: up 4 lbs in past week; stable with admit weight Dietary Orders (From admission, onward) Start Ordered 10/29/22 1700 Nutritional supplement Oral 3 times daily with meals Comments: Send vanilla ensure high protein TID End/Expires: Until Specified Question Answer Comment Administration Route: Oral Place order in third constitution party system. Done 10/29/22 1346 10/28/22 2112 Adult Diet Regular; 6 Soft & Bite-Sized (NDD III); 0 Thin (All Liquids) Diet effective now End/Expires: Until Specified References: IDDSI Website Question Answer Comment Diet Type: Regular Diet Texture: 6 Soft & Bite-Sized (NDD III) Liquid Consistency: 0 Thin (All Liquids) Place order in third constitution party system. Done 10/28/222110 Food Allergies: No known food allergies. Nutrition Related Concerns: . Nutrition Related Concerns Nutrition Related Concerns: Swallowing NutritionSupport: Nutrition Support: No New Medications: No new nutrition related meds Relevant Labs: Most recent labs reviewed. Recent Labs Lab Units 11/16/22 0004 SODIUM MMOL/L BLOOD mmol/L 137 POTASSIUM MMOL/L BLOOD mmol/L 5.9* CHLORIDE mmol/L 99 CO2 mmol/L 29 BUN MG/DL BLOOD mg/dL 48* CREATININE mg/dL 1.64* GLUCOSE MG/DL BLOOD mg/dL 151* CALCIUM MG/DL BLOOD mg/dL 10.5* ANION GAP BLOOD mmol/L 9 Accuchecks: 139-211 mg/dL Skin: . Midline Single Right Cephalic Vein - Upper Arm-Dressing Status: Clean, Dry, Intact Wound/Other Cyst/Abscess Coccyx Medial-Dressing Status: Other (Comment) [REMOVED] Wound/Other MASD Perineum-Dressing Status: Other (Comment) Last BM: Bowel Occurrence: Incontinent (11/16/22 0615) Care Plans: Plan of Care - Nutrition Care Plans 1 Author: Luke Elizalde RD Service: -- Author Type: Registered Dietitian Filed: 11/17/2022 9:33 AM Date of Service: 11/17/2022 9:33 AM Status: Signed Continuous Improvement Consultant: Luke Elizalde RD (Registered Dietitian) Problem: Inadequate Oral Intake Description: Oral food/beverage intake that is less than established reference standards or recommendations based on physiological needs. Related to: Decreased ability to consume sufficient energy, e.g., increased nutrition needs due to prolonged catabolic illness As evidenced by: estimated protein needs of 90-95 g/day. Goal: Improve Nutritional Status Outcome: Progressing Flowsheets (Taken 10/29/2022 5820) Meals and Snacks: (soft and bite sized (6) diet) General healthful diet Medical Food Supplement Therapy: (vanilla Ensure high protein TID) Commercial beverage/Oral nutrition supplement Education Needs: none Monitor: po intake, supplement intake, weight, labs, skin, BMs Recommendations: Advance diet per OIL GAS AND PIPE TESTER Continue vanilla Ensure high protein TID Continue to follow every 5-7 days Luke Palmer MS, RD/LD Ascom [id number] 11/17/22 9:33 AM CDT * Carolina Garibay MD - 11/16/2022 11:15 AM CDT PM&R PROGRESS NOTE This is Face to Face Visit note Esperanza Chaparro is a 67 y.o. male patient. Mood better. improvement in mobility and transfer. REVIEW OF FUNCTIONAL STATUS SM Functional Status PT Data (since 11/13/2022) None SM Functional Status OT Data (since 11/13/2022) None TOILETING: dependent, bed level (not safe to transfer to toilet) BATHING: pt washes face with cues for thoroughness UB DRESSING: LB DRESSING: dependent, bed level PUTTING ON/TAKING OFF FOOTWEAR: dependent, bed level ROLL LEFT AND RIGHT: mod assist for rolling to the right; pt needs two person assist for rolling tothe right SIT TO LYING: LYING TO SITTING: SIT TO STAND: BED TO CHAIR TRANSFER: dependent, two person assist with cee lift TOILET TRANSFER: NT b/c of safety concerns with balance Patient Active Problem List Diagnosis Cerebrovascular accident Chronic obstructive pulmonary disease Coronary arteriosclerosis Primary hypertension Dysphagia Past Medical History: Diagnosis Date Cancer Heart disease Stroke Current Facility-Administered Medications: acetaminophen (TYLENOL) tablet 650 mg, 650 mg, Oral, Q8H BERNARDO, Marion Perry MD, 650 mg at 11/16/22 0607 aspirin EC tablet 81 mg, 81 mg, Oral, Once a day, Marion Perry MD, 81 mg at 11/16/22 1039 bismuth subsalicylate (PEPTO BISMOL) 262 MG/15ML suspension 30 mL, 30 mL, Oral, Q6H PRN, Marion Perry MD, 30 mL at 11/05/22 2127 brimonidine (ALPHAGAN) 0.2 % ophthalmic solution 1 drop, 1 drop, Both Eyes, 3 times per day, Urban Perry MD, 1 drop at 11/16/22 1035 calcium carbonate (TUMS) chewable tablet 1,000 mg, 1,000 mg, Oral, Q2H PRN, Marion Perry MD, 1,000 mg at 11/01/22 1313 carvedilol (COREG) tablet 3.125 mg, 3.125 mg, Oral, 2 times per day, Raul Vo MD, 3.125 mg at11/15/22 1844 nicotine (NICODERM CQ) patch 21 mg, 21 mg, Transdermal, Once a day, 21 mg at 11/16/22 1042 AND Check Patch Placement, , Transdermal, 2 times per day, Marion Perry MD, Check Patch Placement at 11/16/22 1042 cholecalciferol (VITAMIN D3) capsule 50,000 Units, 50,000 Units, Oral, Weekly, Soto Meng MD, 50,000 Units at 11/13/22 0851 clopidogrel (PLAVIX) tablet 75 mg, 75 mg, Oral, Once a day, Marion Perry MD, 75 mg at 11/16/22 1039 cyclobenzaprine (FLEXERIL) tablet 5 mg, 5 mg, Oral, TID PRN, Raul Vo MD, 5 mg at 11/14/22 2114 dextrose (GLUTOSE) 40 % oral gel 15 g, 15 g, Oral, PRN, Marion Perry MD dextrose 50 % IV solution 12.5 g, 12.5 g, Intravenous, PRN OR dextrose 50 % IV solution 25 g, 25 g, Intravenous, PRN, Marion Perry MD Fluticasone-Salmeterol (AIRDUO RESPICLICK) 232-14 MCG/ACT inhaler 1 puff, 1 puff, Inhalation, RT BID, Marion Perry MD, 1 puff at 11/16/22 1034 gabapentin (NEURONTIN) capsule 200 mg, 200 mg, Oral, 3 times per day, Marion Perry MD, 200 mgat 11/16/22 1036 glipiZIDE (GLUCOTROL) tablet 5 mg, 5 mg, Oral, Once a day, Soto Meng MD, 5 mg at 11/16/22 1040 glucagon injection reconstituted solution 1 mg, 1 mg, Intramuscular, PRN, Marion Perry MD hemorrhoidal ointment, , Apply externally, TID PRN, Marion Perry MD, Given at 11/13/222117 heparin (porcine) injection 5,000 Units, 5,000 Units, Subcutaneous, Q8H BERNARDO, Marion Perry MD,5,000 Units at 11/16/22 0608 ibuprofen (MOTRIN) tablet 200 mg, 200 mg, Oral, Q6H PRN, Carolina Garibay MD ipratropium-albuterol (DUO-NEB) 0.5-2.5 mg/3 mL nebulizer solution 3 mL, 3 mL, Inhalation, Q 4 hours PRN, Marion Perry MD, 3 mL at 11/02/22 2344 ketoconazole (NIZORAL) 2 % cream, , Topical, Once a day, Shorty Menard DPM, Given at 11/15/22 1033 lidocaine (LIDOCARE) 4 % patch 3 patch, 3 patch, Transdermal, Once a day, Carolina Garibay MD, 3 patch at 11/16/22 1036 lidocaine (XYLOCAINE) 1 % injection 8 mL, 8 mL, Other, Once, Carolina Garibay MD losartan (COZAAR) tablet 25 mg, 25 mg, Oral, Once a day, Valencia Johnson MD, 25 mg at 11/15/22 1028 melatonin tablet 9 mg, 9 mg, Oral, Nightly, Marion Perry MD, 9 mg at 11/15/22 2137 midodrine (PROAMATINE) tablet 5 mg, 5 mg, Oral, Q8H PRN, Raul Vo MD muscle rub (ICY HOT) 10-15 % cream, , Topical, 2 times per day, Carolina Garibay MD, Given at 11/16/22 1034 oxyCODONE (ROXICODONE) immediate release tablet 5 mg, 5 mg, Oral, Q4H PRN, Carolina Garibay MD, 5 mgat 11/16/22 1044 polyethylene glycol (MIRALAX) packet 17 g, 17 g, Oral, BID PRN, Carolina Garibay MD, 17 g at 11/04/22 215 rosuvastatin (CRESTOR) tablet 40 mg, 40 mg, Oral, Once a day, Marion Perry MD, 40 mg at 11/16/22 1036 simethicone (MYLICON) chewable tablet 80 mg, 80 mg, Oral, 4x Daily PRN, Marion Perry MD, 80 mg at 10/31/22 1818 tamsulosin (FLOMAX) 24 hr capsule 0.4 mg, 0.4 mg, Oral, After Breakfast, Marion Perry MD, 0.4mg at 11/16/22 1036 triamcinolone acetonide (KENALOG-40) injection 40 mg, 40 mg, Intra-articular, Once, Carolina Garibay MD Umeclidinium [place] (INCRUSE ELLIPTA) 62.5 MCG/ACT inhaler 62.5 mcg, 1 puff, Inhalation, RT Daily,Marion Perry MD, 62.5 mcg at 11/16/22 1045 Review of Systems: Review of Systems Constitutional: Negative for fatigue. HENT: Negative for congestion. Eyes: Negative for discharge. Respiratory: Negative for apnea. Cardiovascular: Positive for leg swelling. Gastrointestinal: Negative for abdominal distention. Genitourinary: Negative for difficulty urinating. Musculoskeletal: Positive for arthralgias. Skin: Negative for color change. Neurological: Positive for weakness. Psychiatric/Behavioral: The patient is nervous/anxious. Physical Exam Vitals: 11/16/22 0944 BP: (!) 89/60 Pulse: Resp: Temp: SpO2: Physical Exam Constitutional: General: He is not in acute distress. HENT: Head: Atraumatic. Eyes: Conjunctiva/sclera: Conjunctivae normal. Cardiovascular: Rate and Rhythm: Normal rate. Pulmonary: Effort: Pulmonary effort is normal. Abdominal: General: There is no distension. Skin: Findings: No erythema. Neurological: Coordination: Coordination abnormal. Neurologic Exam Mental Status Oriented to person. Lab Data Reviewed current lab results available to me today. Lab Results Component Value Date WBC 7.8 11/09/2022 HGB 10.6 (L) 11/09/2022 HCT 33.2 (L) 11/09/2022 MCV 91.2 11/09/2022 PLT 257 11/09/2022 Lab Results Component Value Date GLUCOSE 125 (H) 11/12/2022 CALCIUM 9.0 11/12/2022 NA 137 11/12/2022 K 5.0 11/12/2022 CO2 23 11/12/2022 CL 105 11/12/2022 BUN 33 (H) 11/12/2022 CREATININE 1.14 11/12/2022 ANIONGAP 9 11/12/2022 Imaging Reviewed current imaging results available to me today. No results found. Assessment & Plan: Esperanza Chaparro is a 67 y.o. 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 Speech therapy for swallow evaluation and cognitive evaluation. DIET: Dietary Orders (From admission, onward) Start Ordered 10/29/22 1700 Nutritional supplement Oral 3 times daily with meals Comments: Send vanilla ensure high protein TID End/Expires: Until Specified Question Answer Comment Administration Route: Oral Place order in third constitution party system. Done 10/29/22 1346 10/28/22 2112 Adult Diet Regular; 6 Soft & Bite-Sized (NDD III); 0 Thin (All Liquids) Diet effective now End/Expires: Until Specified References: [employer] Website Question Answer Comment Diet Type: Regular Diet Texture: 6 Soft & Bite-Sized (NDD III) Liquid Consistency: 0 Thin (All Liquids) Place order in third constitution party system. 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 On modified diet IVF dced on 11/06 # Gout : Stable On PRN Ibuprofen # DMII On oral meds # HTN - continue amlodipine and losartan #CAD s/p PCI - continue ASA, statin # COPD - home inhalers, duonebs prn # Pain: Oxy and Lidoderm Left hip XR on 11/06 Mild symmetric degenerative change the hip joints are present with minimal joint space narrowing. Lidoderm [facility]: SNF CAROLINA GARIBAY MD * Raul Vo MD - 11/16/2022 10:44 AM CDT HOSPITALIST PROGRESS NOTE Patient Name: Esperanza Chaparro : 1955 Medical Record: [id number] ATTENDING Carolina Garibay MD SUBJECTIVE 10/30 The patient is being seen for follow-up of Cerebrovascular accident. BP, BS , HR, labs, strength. .Chief Complaint Renal 42/1.5 Hr 50s BP low DC norvasc Decrease dose of coreg and cozaar strength improving, able to do therapy ok. No chest pain, no SOB, no dizziness, no palpitations, no new neurologic symptoms. No cough, No nausea or vomiting, No abdominal pain. History also obtained from Nurse and staff about how the patient did overnight and during the day strength improving, able to do therapy ok. Brief 10/31: Patient seen and examined this morning. Patient complaining of uncontrolled pain. Follow up with PM&R for further recommendations. Continue current medical management. 11/01: Patient seen and examined this afternoon. Patient continues to complain of uncontrolled pain.Follow up with PM&R for further recommendations. Have placed orders for Flexeril 5 mg TID PRN. Continue current medical management. 11/02: Patient seen and examined this morning. Patient complaining of uncontrolled pain. Follow up with PM&R for further recommendations. Patient has been having great toe pain. Possibly patient has gout. Follow up uric acid. Follow up Podiatry further recommendations regarding foot care. Continue current medical management. 11/03:Patient seen and examined this morning. Vitals and labs reviewed. Resting comfortably. No acute events overnight. Continue current medical management. 11/04 BP up once No complaints Doing better in therapy 11/05 No events reported Vitals/labs reviewed Participating with therapy 11/06 The patient was seen in the room this afternoon. The patient currently does not report any chest pain, shortness present nausea or vomiting No reported issues from the floor nurse. The most recent labs and vital signs were reviewed. 11/07 Patient seen and examined Doing fine No new issues to report Labs/vitals reviewed 11/08 Patient seen and examined Doing fine No new issues to report Labs/vitals reviewed 11/09 Patient seen and examined Doing ok No new issues to report Vitals reviewed Labs unremarkable 11/10 Patient seen and examined Doing alright No new issues to report Vitals reviewed 11/11 Patient seen and examined Doing fine No new issues to report Labs/vitals reviewed Family at bedside 11/12 The patient was seen and examined this morning. Patient appears to be in good spirits. Based on most recent notes, patient has been actively involved in therapy. Nursing has not reported any major issues throughout the day. The patient has not reported any chest pain, nausea, vomiting, or difficulty breathing. 11/13 Patient seen and examined Doing fine No new issues to report Resting comfortably 11/14 Patient seen and examined Doing alright No new issues to report Vitals reviewed 11/15 Patient seen and examined Doing fine at this time Labs/vitals reviewed Resting comfortably 11/16: Patient seen and examined this morning. Patient's blood pressure continues to run low. Have placed orders for midodrine PRN. No acute events overnight. Continue current medical management. Pending blood work. lalit Patient is a 67-year-old male with past medical history of CAD, COPD, hypertension, diabetes, sleepapnea, colon cancer status post colectomy who was transferred to [facility] with new neurologicaldeficits. Imaging confirmed acute on chronic right MCA and SHEA stroke. Patient did receive tPA in the ER. Patient was admitted to the neuro ICU. Patient's clinical condition stabilized. Patient was kept on aspirin Plavix for 90 days. Patient was started on statin. Patient is on Jardiance. Secondary stroke workup was completed. Patient also did complete a course of Unasyn for peritonsillar abscess. Patient worked with physical therapy and occupational therapy. Acute inpatient rehab was recommen ded. HOME Medications Prior to Admission medications Medication Sig Start Date End Date Taking? Authorizing Provider Brinzolamide-Brimonidine 1-0.2 % suspension Administer 1 drop into both eyes 3 (three) times a day.Yes Historical Provider, budesonide-formoterol (SYMBICORT) 160-4.5 MCG/ACT inhaler Inhale 2 puffs RT 2 (two) times a day. Yes Historical Provider, cabergoline (DOSTINEX) 0.5 MG tablet Take 0.5 tablets (0.25 mg total) by mouth 2 (two) times a week. Yes Historical Provider, carboxymethylcellulose (Carboxymethylcellulose Sodium) solution Apply 1 drop (0.05 mL total) to both eyes 4 (four) times a day as needed for dry eyes. Yes Historical Provider, ergocalciferol (vitamin D2, Ergocalciferol,) 1.25 MG (01455 UT) capsule Take 1 capsule (50,000 Units total) by mouth once a week. Yes Historical Provider, melatonin tablet Take 8 tablets (8 mg total) by mouth nightly. Yes Historical Provider, Tiotropium [place] Monohydrate (Spiriva Respimat) 2.5 MCG/ACT aerosol solution Inhale 2 puffs (5 mcg total) RT Daily. Yes Historical Provider, CURRENT Medications Current Facility-Administered Medications: acetaminophen (TYLENOL) tablet 650 mg, 650 mg, Oral, Q8H BERNARDO, Marion Perry MD, 650 mg at 11/16/22 0607 aspirin EC tablet 81 mg, 81 mg, Oral, Once a day, Marion Perry MD, 81 mg at 11/16/22 1039 bismuth subsalicylate (PEPTO BISMOL) 262 MG/15ML suspension 30 mL, 30 mL, Oral, Q6H PRN, Marion Perry MD, 30 mL at 11/05/22 2127 brimonidine (ALPHAGAN) 0.2 % ophthalmic solution 1 drop, 1 drop, Both Eyes, 3 times per day, Urban Perry MD, 1 drop at 11/16/22 1035 calcium carbonate (TUMS) chewable tablet 1,000 mg, 1,000 mg, Oral, Q2H PRN, Marion Perry MD, 1,000 mg at 11/01/22 1313 carvedilol (COREG) tablet 3.125 mg, 3.125 mg, Oral, 2 times per day, Raul Vo MD, 3.125 mg at11/15/22 1844 nicotine (NICODERM CQ) patch 21 mg, 21 mg, Transdermal, Once a day, 21 mg at 11/16/22 1042 AND Check Patch Placement, , Transdermal, 2 times per day, Marion Perry MD, Check Patch Placement at 11/16/22 1042 cholecalciferol (VITAMIN D3) capsule 50,000 Units, 50,000 Units, Oral, Weekly, Soto Meng MD, 50,000 Units at 11/13/22 0851 clopidogrel (PLAVIX) tablet 75 mg, 75 mg, Oral, Once a day, Marion Perry MD, 75 mg at 11/16/22 103 cyclobenzaprine (FLEXERIL) tablet 5 mg, 5 mg, Oral, TID PRN, Raul Vo MD, 5 mg at 11/14/222113 dextrose (GLUTOSE) 40 % oral gel 15 g, 15 g, Oral, PRN, Marion Perry MD dextrose 50 % IV solution 12.5 g, 12.5 g, Intravenous, PRN OR dextrose 50 % IV solution 25 g, 25 g, Intravenous, PRN, Marion Perry MD Fluticasone-Salmeterol (AIRDUO RESPICLICK) 232-14 MCG/ACT inhaler 1 puff, 1 puff, Inhalation, RT BID, Marion Perry MD, 1 puff at 11/16/22 103 gabapentin (NEURONTIN) capsule 200 mg, 200 mg, Oral, 3 times per day, Marion Perry MD, 200 mgat 11/16/22 1036 glipiZIDE (GLUCOTROL) tablet 5 mg, 5 mg, Oral, Once a day, Soto Meng MD, 5 mg at 11/16/22 1040 glucagon injection reconstituted solution 1 mg, 1 mg, Intramuscular, PRN, Marion Perry MD hemorrhoidal ointment, , Apply externally, TID PRN, Marion Perry MD, Given at 11/13/222117 heparin (porcine) injection 5,000 Units, 5,000 Units, Subcutaneous, Q8H BERNARDO, Marion Perry MD,5,000 Units at 11/16/22 0608 ibuprofen (MOTRIN) tablet 200 mg, 200 mg, Oral, Q6H PRN, Carolina Garibay MD ipratropium-albuterol (DUO-NEB) 0.5-2.5 mg/3 mL nebulizer solution 3 mL, 3 mL, Inhalation, Q 4 hours PRN, Marion Perry MD, 3 mL at 11/02/22 2344 ketoconazole (NIZORAL) 2 % cream, , Topical, Once a day, Shorty Menard DPM, Given at 11/15/22 1033 lidocaine (LIDOCARE) 4 % patch 3 patch, 3 patch, Transdermal, Once a day, Carolina Garibay MD, 3 patch at 11/16/22 1036 lidocaine (XYLOCAINE) 1 % injection 8 mL, 8 mL, Other, Once, Carolina Garibay MD losartan (COZAAR) tablet 25 mg, 25 mg, Oral, Once a day, Valencia Johnson MD, 25 mg at 11/15/22 1028 melatonin tablet 9 mg, 9 mg, Oral, Nightly, Marion Perry MD, 9 mg at 11/15/22 2137 muscle rub (ICY HOT) 10-15 % cream, , Topical, 2 times per day, Carolina Garibay MD, Given at 11/16/22 1034 oxyCODONE (ROXICODONE) immediate release tablet 5 mg, 5 mg, Oral, Q4H PRN, Carolina Garibay MD, 5 mgat 11/16/22 0608 polyethylene glycol (MIRALAX) packet 17 g, 17 g, Oral, BID PRN, Carolina Garibay MD, 17 g at 11/04/22 2159 rosuvastatin (CRESTOR) tablet 40 mg, 40 mg, Oral, Once a day, Marion Perry MD, 40 mg at 11/16/22 1036 simethicone (MYLICON) chewable tablet 80 mg, 80 mg, Oral, 4x Daily PRN, Marion Perry MD, 80 mg at 10/31/22 1818 tamsulosin (FLOMAX) 24 hr capsule 0.4 mg, 0.4 mg, Oral, After Breakfast, Marion Perry MD, 0.4mg at 11/16/22 1036 triamcinolone acetonide (KENALOG-40) injection 40 mg, 40 mg, Intra-articular, Once, Carolina Garibay MD Umeclidinium [place] (INCRUSE ELLIPTA) 62.5 MCG/ACT inhaler 62.5 mcg, 1 puff, Inhalation, RT Daily,Marion Perry MD, 62.5 mcg at 11/15/22 1032 DATA Vitals: 11/16/22 0916 11/16/22 0920 11/16/22 0935 11/16/22 0944 BP: 107/69 (!) 86/59 (!) 73/47 (!) 89/60 Pulse: 60 80 Resp: 20 Temp: 98.4 ??F (36.9 ??C) TempSrc: Oral SpO2: 96% Weight: Height: POC Glucose POC Glucose 11/16/22 0552 143 11/15/22 2039 168 Weights (last 3 days) Date/Time Weight 11/15/22 0237 229 lb (103.9 kg) @ANTICOAGSUMMARY@ @FLOWDATE(2706:LAST)@ Intake/Output Summary (Last 24 hours) at 11/16/2022 1044 Last data filed at 11/16/2022 0615 Gross per 24 hour Intake 440 ml Output 425 ml Net 15 ml PHYSICAL EXAM General: Patient in no acute distress, awake, alert Head: Atraumatic/Normocephalic Respiratory: No use of accessory muscles Extremities: No visible swelling Skin: No rashes, no ulcers on visible skin Neuro: No obvious neurologic deficits Psych: mood appears appropriate LABS CBC with Differential: No results found for: WBC, RBC, HGB, HEMOGLOBIN, HCT, HEMATOCRIT, PLT, MCV, MCH, MCHC, RDW, NEUTPERCENT, MONOPERCENT, LYMPHPERCENT, BASOPERCENT [ BMP: No results found for: NA, SODIUM, K, POTASSIUM, CL, CO2, BUN, CREATININE, LABCREA, EGFR, GLU, LABGLUC, GLUCOSE, GLUCOSEFL, CALCIUM, CALCIUMUR, ANIONGAP MG/PHOS: No results found for: MG, PHOS CKMB: No components found for: CKMB;2 PT/INR: No results found for: LABPROT, INR BNP: No results found for: BNP Last 3 Troponin: No components found for: TROPONINI;3 U/A: No results found for: COLORU, CLARITYU, GLUCOSEU, BILIRUBINUR, KETONESU, SPECGRAV, BLOODU, PHUR, UROBILINOGEN, NITRITE, LEUKOCYTESUR, MUCUS, RBCUA, WBCUA CMP: No results found for: NA, SODIUM, K, POTASSIUM, CL, CO2, BUN, CREATININE, LABCREA, GLU, LABGLUC, GLUCOSE, PROT, CALCIUM, ALBUMIN, BILITOT, ALKALINEPHO, ALT, AST, ANIONGAP, EGFR LFT's: No results found for: ALB, PROT Ionized Calcium: No components found for: IONCA ABG: No results found for: PHART, SOH7ADZ, PO2ART, EKE7IDL, BEART, [id number] HgBA1c: No results found for: HGBA1C Lipid Panel: No results found for: CHOL, TRIG, HDL TSH: No results found for: TSH Lab Results Component Value Date GLUCOSE 125 (H) 11/12/2022 BUN 33 (H) 11/12/2022 CREATININE 1.14 11/12/2022 NA 137 11/12/2022 K 5.0 11/12/2022 CL 105 11/12/2022 CO2 23 11/12/2022 CALCIUM 9.0 11/12/2022 @RESU CBC: BMP: Recent Labs Lab Units 11/12/22 0010 SODIUM MMOL/L BLOOD mmol/L 137 POTASSIUM MMOL/L BLOOD mmol/L 5.0 CHLORIDE mmol/L 105 CO2 mmol/L 23 BUN MG/DL BLOOD mg/dL 33* CREATININE mg/dL 1.14 GLUCOSE MG/DL BLOOD mg/dL 125* CALCIUM MG/DL BLOOD mg/dL 9.0 I reviewed the EKG tracing/Xray Recent Labs Lab Units 11/12/22 0010 SODIUM MMOL/L BLOOD mmol/L 137 POTASSIUM MMOL/L BLOOD mmol/L 5.0 CHLORIDE mmol/L 105 CO2 mmol/L 23 BUN MG/DL BLOOD mg/dL 33* CREATININE mg/dL 1.14 GLUCOSE MG/DL BLOOD mg/dL 125* CALCIUM MG/DL BLOOD mg/dL 9.0 ANION GAP BLOOD mmol/L 9 ASSESSMENT AND PLAN Principal Problem: Cerebrovascular accident Active Problems: Dysphagia Acute CVA Patient found to have a right acute on chronic MCA stroke and a SHEA ischemic stroke Patient received tPA in the ER Patient was admitted to the neuro ICU Patient was started on aspirin and Plavix Secondary stroke workup was completed Patient will be on 90 days of aspirin Plavix, end date 01/18/2023 Continue physical therapy Continue occupational therapy Physical medicine physician to oversee overall rehab program Hypertension Continue amlodipine 10 mg daily Bp low- dc norvasc DC IVF Bradycardia Decrease dose of coreg Mild renal insufficiency JUST finished IVF Inc po fluids F/U labs CAD Continue aspirin, coreg, plavix COPD Continue airduo Dysphagia Speech therapy DVT prophylaxis Continue heparin Code status Full code D/W patient , and attending physician about test results and treatment plan .No family in the room.Patient requiring monitoring of BP and HR while doing 3 hour intensive exercises to avoid fluctuations and hypotension . Aswell as monitoring of nutritional and fluid status , by weights, leg edema .Notified staff and patient to notify me of any change inconditions or new problems * Soot Meng MD - 11/16/2022 8:34 AM CDT ENDOCRINOLOGY progress note Patient Name: Esperanza Chaparro : 1955 Medical Record: [id number] DATE OF SERVICE 11/16/2022 PRIMARY CARE PHYSICIAN No primary care provider on file. ATTENDING PHYSICIAN Carolina Garibay MD CONSULTING PHYSICIAN SOTO MENG MD Follow-up Follow up for type 2 diabetes uncontrolled, glucoses are variable. Increased body weight, occasional sliding-scale insulin use. Glipizide added. He is unable to give history, status post CVA Noted to have low vitamin-D on lab testing this admission.- replacement added, Urinary incontinence- Jardiance discontinued. HISTORY OF PRESENT ILLNESS The patient is a 67 y.o. y/o male with past medical history of CAD, COPD , hypertension, diabetes, sleep apnea, colon cancer s/p colectomy transferred to [facility] ER for neuro deficits Imaging confirmed Acute on chronic Rt MCA and SHEA ischemic stroke. Pt got tPA in ER and was admitted to neuro ICU. Pt kept on ASA, Plavix (to complete 90 days-EOT 01/18/23), Statin, Jardiance, Seen by neurology , secondary stroke work up completed . pt finished course of Unasyn for peritonsillar abscess. evaluated by therapy and recommend rehab for functional deficits. admitted to [facility] acute inpatient rehab for medical management and rehab PAST MEDICAL HISTORY Past Medical History: Diagnosis Date Cancer Heart disease Stroke PAST SURGICAL HISTORY Past Surgical History: Procedure Laterality Date CARDIAC SURGERY COLON SURGERY HERNIA REPAIR ALLERGIES Allergies Allergen Reactions Hydralazine Nausea And Vomiting Metformin Diarrhea Pioglitazone Nausea And Vomiting Lisinopril Rash Simvastatin Rash Pt reports hot flashes HOME MEDICATIONS Prior to Admission medications Medication Sig Start Date End Date Taking? Authorizing Provider Brinzolamide-Brimonidine 1-0.2 % suspension Administer 1 drop into both eyes 3 (three) times a day.Yes Historical Provider, budesonide-formoterol (SYMBICORT) 160-4.5 MCG/ACT inhaler Inhale 2 puffs RT 2 (two) times a day. Yes Historical Provider, cabergoline (DOSTINEX) 0.5 MG tablet Take 0.5 tablets (0.25 mg total) by mouth 2 (two) times a week. Yes Historical Provider, carboxymethylcellulose (Carboxymethylcellulose Sodium) solution Apply 1 drop (0.05 mL total) to both eyes 4 (four) times a day as needed for dry eyes. Yes Historical Provider, ergocalciferol (vitamin D2, Ergocalciferol,) 1.25 MG (41370 UT) capsule Take 1 capsule (50,000 Units total) by mouth once a week. Yes Historical Provider, melatonin tablet Take 8 tablets (8 mg total) by mouth nightly. Yes Historical Provider, Tiotropium [place] Monohydrate (Spiriva Respimat) 2.5 MCG/ACT aerosol solution Inhale 2 puffs (5 mcg total) RT Daily. Yes Historical Provider, CURRENT MEDICATIONS Current Facility-Administered Medications: acetaminophen (TYLENOL) tablet 650 mg, 650 mg, Oral, Q8H BERNARDO, Marion Perry MD, 650 mg at 11/16/22 0607 aspirin EC tablet 81 mg, 81 mg, Oral, Once a day, Marion Perry MD, 81 mg at 11/15/22 1030 bismuth subsalicylate (PEPTO BISMOL) 262 MG/15ML suspension 30 mL, 30 mL, Oral, Q6H PRN, Marion Perry MD, 30 mL at 11/05/22 2127 brimonidine (ALPHAGAN) 0.2 % ophthalmic solution 1 drop, 1 drop, Both Eyes, 3 times per day, Urban Perry MD, 1 drop at 11/15/22 2146 calcium carbonate (TUMS) chewable tablet 1,000 mg, 1,000 mg, Oral, Q2H PRN, Marion Perry MD, 1,000 mg at 11/01/22 1313 carvedilol (COREG) tablet 3.125 mg, 3.125 mg, Oral, 2 times per day, Raul Vo MD, 3.125 mg at11/15/22 1844 nicotine (NICODERM CQ) patch 21 mg, 21 mg, Transdermal, Once a day, 21 mg at 11/15/22 1027 AND Check Patch Placement, , Transdermal, 2 times per day, Marion Perry MD, Check Patch Placement at 11/15/222148 cholecalciferol (VITAMIN D3) capsule 50,000 Units, 50,000 Units, Oral, Weekly, Soto Meng MD, 50,000 Units at 11/13/22 0851 clopidogrel (PLAVIX) tablet 75 mg, 75 mg, Oral, Once a day, Marion Perry MD, 75 mg at 11/15/22 102 cyclobenzaprine (FLEXERIL) tablet 5 mg, 5 mg, Oral, TID PRN, Raul Vo MD, 5 mg at 11/14/222113 dextrose (GLUTOSE) 40 % oral gel 15 g, 15 g, Oral, PRN, Marion Perry MD dextrose 50 % IV solution 12.5 g, 12.5 g, Intravenous, PRN OR dextrose 50 % IV solution 25 g, 25 g, Intravenous, PRN, Marion Peryr MD Fluticasone-Salmeterol (AIRDUO RESPICLICK) 232-14 MCG/ACT inhaler 1 puff, 1 puff, Inhalation, RT BID, Marion Perry MD, 1 puff at 11/15/222144 gabapentin (NEURONTIN) capsule 200 mg, 200 mg, Oral, 3 times per day, Marion Perry MD, 200 mgat 11/15/22 213 glipiZIDE (GLUCOTROL) tablet 5 mg, 5 mg, Oral, Once a day, Soto Meng MD, 5 mg at 11/15/22 102 glucagon injection reconstituted solution 1 mg, 1 mg, Intramuscular, PRN, Marion Perry MD hemorrhoidal ointment, , Apply externally, TID PRN, Marion Perry MD, Given at 11/13/222117 heparin (porcine) injection 5,000 Units, 5,000 Units, Subcutaneous, Q8H BERNARDO, Marion Perry MD,5,000 Units at 11/16/22 0608 ibuprofen (MOTRIN) tablet 200 mg, 200 mg, Oral, Q6H PRN, Carolina Garibay MD ipratropium-albuterol (DUO-NEB) 0.5-2.5 mg/3 mL nebulizer solution 3 mL, 3 mL, Inhalation, Q 4 hours PRN, Marion Perry MD, 3 mL at 11/02/22 2344 ketoconazole (NIZORAL) 2 % cream, , Topical, Once a day, Shorty Menard DPM, Given at 11/15/22 1033 lidocaine (LIDOCARE) 4 % patch 3 patch, 3 patch, Transdermal, Once a day, Carolina Garibay MD, 3 patch at 11/15/22 1030 lidocaine (XYLOCAINE) 1 % injection 8 mL, 8 mL, Other, Once, Carolina Garibay MD losartan (COZAAR) tablet 25 mg, 25 mg, Oral, Once a day, Valencia Johnson MD, 25 mg at 11/15/22 1028 melatonin tablet 9 mg, 9 mg, Oral, Nightly, Marion Perry MD, 9 mg at 11/15/22 2137 muscle rub (ICY HOT) 10-15 % cream, , Topical, 2 times per day, Carolina Garibay MD, Given at 11/15/22 2146 oxyCODONE (ROXICODONE) immediate release tablet 5 mg, 5 mg, Oral, Q4H PRN, Carolina Garibay MD, 5 mgat 11/16/22 0608 polyethylene glycol (MIRALAX) packet 17 g, 17 g, Oral, BID PRN, Carolina Garibay MD, 17 g at 11/04/22 215 rosuvastatin (CRESTOR) tablet 40 mg, 40 mg, Oral, Once a day, Marion Perry MD, 40 mg at 11/15/22 1031 simethicone (MYLICON) chewable tablet 80 mg, 80 mg, Oral, 4x Daily PRN, Marion Perry MD, 80 mg at 10/31/22 1818 tamsulosin (FLOMAX) 24 hr capsule 0.4 mg, 0.4 mg, Oral, After Breakfast, Marion Perry MD, 0.4mg at 11/15/22 1028 triamcinolone acetonide (KENALOG-40) injection 40 mg, 40 mg, Intra-articular, Once, Carolina Garibay MD Umeclidinium [place] (INCRUSE ELLIPTA) 62.5 MCG/ACT inhaler 62.5 mcg, 1 puff, Inhalation, RT Daily,Marion Perry MD, 62.5 mcg at 11/15/22 1032 CURRENT DIET Dietary Orders (From admission, onward) Start Ordered 10/29/22 1700 Nutritional supplement Oral 3 times daily with meals Comments: Send vanilla ensure high protein TID End/Expires: Until Specified Question Answer Comment Administration Route: Oral Place order in third constitution party system. Done 10/29/22 1346 10/28/222111 Adult Diet Regular; 6 Soft & Bite-Sized (NDD III); 0 Thin (All Liquids) Diet effective now End/Expires: Until Specified References: [employer] Website Question Answer Comment Diet Type: Regular Diet Texture: 6 Soft & Bite-Sized (NDD III) Liquid Consistency: 0 Thin (All Liquids) Place order in third constitution party system. Done 10/28/222110 SOCIAL HISTORY reports that he has been smoking cigarettes. He started smoking about 40 years ago. He has a 15.00 pack-year smoking history. He has been exposed to tobacco smoke. He has never used smokeless tobacco. He reports that he does not drink alcohol and does not use drugs. FAMILY HISTORY Family History Problem Relation Age of Onset No Known Problems Mother No Known Problems Father No Known Problems Sister No Known Problems Brother REVIEW OF SYSTEMS General: no weight loss, no fever, no chills, no anorexia Review of system is not available Intake/Output Summary (Last 24 hours) at 11/16/2022 0834 Last data filed at 11/16/2022 0615 Gross per 24 hour Intake 920 ml Output 425 ml Net 495 ml PHYSICAL EXAM Vital Signs: Temp: [97.5 ??F (36.4 ??C)] 97.5 ??F (36.4 ??C) Pulse: [63-67] 67 Resp: [14] 14 BP: (129-139)/(72) 139/72 229 lb (103.9 kg)5' 11 (1.803 m)Body mass index is 31.94 kg/m??. Constitutional: Healthy, no distress HENT: Normocephalic, Atraumatic, Bilateral external ears normal, Oropharynx moist, No oral exudates, No tenderness, neck supple. Eyes: PERRL, EOMI, Conjunctiva normal, No discharge. Lymphatic: No cervical or supraclavicular lymphadenopathy noted. Cardiovascular: Normal heart rate, Normal rhythm, No murmurs, No rubs, No gallops. Respiratory: Normal breath sounds, No respiratory distress, No wheezing, No rhonchi, No rales, No chest tenderness. GI: Bowel sounds normal, Soft, No tenderness, No rebound or guarding, No masses. Integument: Warm, Dry, No erythema, No rash. LABS Most recent labs reviewed. POC Glucose POC Glucose 11/16/22 0552 143 11/15/22 2039 168 Recent Labs Lab Units 11/12/22 0010 SODIUM MMOL/L BLOOD mmol/L 137 POTASSIUM MMOL/L BLOOD mmol/L 5.0 CHLORIDE mmol/L 105 CO2 mmol/L 23 BUN MG/DL BLOOD mg/dL 33* ANION GAP BLOOD mmol/L 9 CREATININE mg/dL 1.14 GLUCOSE MG/DL BLOOD mg/dL 125* CALCIUM MG/DL BLOOD mg/dL 9.0 Latest Reference Range & Units 10/30/22 02:05 Vitamin B12 pg/mL Blood 213 - 816 pg/mL 395 Vitamin D, 25-Hydroxy 30 - 100 ng/mL 18.0 (L) (L): Data is abnormally low IMAGING STUDIES & OTHER STUDIES Not applicable ASSESSMENT Principal Problem: Cerebrovascular accident Active Problems: Dysphagia Type 2 diabetes uncontrolled Increased body weight, vitamin-D deficiency PLAN Continue glipizide Discontinued Jardiance in view of urinary incontinence. Optimize vitamin-D Review outside records as available Rehab per protocol Diet per nutrition services We will follow with you while in hospital. The plan was discussed with the patient and/or family. Electronically signed by: SOTO MENG MD, 11/16/2022 8:34 AM CDT * Marion Perry MD - 11/15/2022 8:06 PM CDT HOSPITALIST PROGRESS NOTE Patient Name: Esperanza Chaparro : 1955 Medical Record: [id number] ATTENDING Carolina Garibay MD SUBJECTIVE 10/30 The patient is being seen for follow-up of Cerebrovascular accident. BP, BS , HR, labs, strength. .Chief Complaint Renal 42/1.5 Hr 50s BP low DC norvasc Decrease dose of coreg and cozaar strength improving, able to do therapy ok. No chest pain, no SOB, no dizziness, no palpitations, no new neurologic symptoms. No cough, No nausea or vomiting, No abdominal pain. History also obtained from Nurse and staff about how the patient did overnight and during the day strength improving, able to do therapy ok. Brief 10/31: Patient seen and examined this morning. Patient complaining of uncontrolled pain. Follow up with PM&R for further recommendations. Continue current medical management. 11/01: Patient seen and examined this afternoon. Patient continues to complain of uncontrolled pain.Follow up with PM&R for further recommendations. Have placed orders for Flexeril 5 mg TID PRN. Continue current medical management. 11/02: Patient seen and examined this morning. Patient complaining of uncontrolled pain. Follow up with PM&R for further recommendations. Patient has been having great toe pain. Possibly patient has gout. Follow up uric acid. Follow up Podiatry further recommendations regarding foot care. Continue current medical management. 11/03:Patient seen and examined this morning. Vitals and labs reviewed. Resting comfortably. No acute events overnight. Continue current medical management. 11/04 BP up once No complaints Doing better in therapy 11/05 No events reported Vitals/labs reviewed Participating with therapy 11/06 The patient was seen in the room this afternoon. The patient currently does not report any chest pain, shortness present nausea or vomiting No reported issues from the floor nurse. The most recent labs and vital signs were reviewed. 11/07 Patient seen and examined Doing fine No new issues to report Labs/vitals reviewed 11/08 Patient seen and examined Doing fine No new issues to report Labs/vitals reviewed 11/09 Patient seen and examined Doing ok No new issues to report Vitals reviewed Labs unremarkable 11/10 Patient seen and examined Doing alright No new issues to report Vitals reviewed 11/11 Patient seen and examined Doing fine No new issues to report Labs/vitals reviewed Family at bedside 11/12 The patient was seen and examined this morning. Patient appears to be in good spirits. Based on most recent notes, patient has been actively involved in therapy. Nursing has not reported any major issues throughout the day. The patient has not reported any chest pain, nausea, vomiting, or difficulty breathing. 11/13 Patient seen and examined Doing fine No new issues to report Resting comfortably 11/14 Patient seen and examined Doing alright No new issues to report Vitals reviewed 11/15 Patient seen and examined Doing fine at this time Labs/vitals reviewed Resting comfortably istory Patient is a 67-year-old male with past medical history of CAD, COPD, hypertension, diabetes, sleepapnea, colon cancer status post colectomy who was transferred to [facility] with new neurologicaldeficits. Imaging confirmed acute on chronic right MCA and SHEA stroke. Patient did receive tPA in the ER. Patient was admitted to the neuro ICU. Patient's clinical condition stabilized. Patient was kept on aspirin Plavix for 90 days. Patient was started on statin. Patient is on Jardiance. Secondarystroke workup was completed. Patient also did complete a course of Unasyn for peritonsillar abscess. Patient worked with physical therapy and occupational therapy. Acute inpatient rehab was recommende d. HOME Medications Prior to Admission medications Medication Sig Start Date End Date Taking? Authorizing Provider Brinzolamide-Brimonidine 1-0.2 % suspension Administer 1 drop into both eyes 3 (three) times a day.Yes Historical Provider, budesonide-formoterol (SYMBICORT) 160-4.5 MCG/ACT inhaler Inhale 2 puffs RT 2 (two) times a day. Yes Historical Provider, cabergoline (DOSTINEX) 0.5 MG tablet Take 0.5 tablets (0.25 mg total) by mouth 2 (two) times a week. Yes Historical Provider, carboxymethylcellulose (Carboxymethylcellulose Sodium) solution Apply 1 drop (0.05 mL total) to both eyes 4 (four) times a day as needed for dry eyes. Yes Historical Provider, ergocalciferol (vitamin D2, Ergocalciferol,) 1.25 MG (74722 UT) capsule Take 1 capsule (50,000 Units total) by mouth once a week. Yes Historical Provider, melatonin tablet Take 8 tablets (8 mg total) by mouth nightly. Yes Historical Provider, Tiotropium [place] Monohydrate (Spiriva Respimat) 2.5 MCG/ACT aerosol solution Inhale 2 puffs (5 mcg total) RT Daily. Yes Historical Provider, CURRENT Medications Current Facility-Administered Medications: acetaminophen (TYLENOL) tablet 650 mg, 650 mg, Oral, Q8H BERNARDO, Marion Perry MD, 650 mg at 11/15/22 1435 aspirin EC tablet 81 mg, 81 mg, Oral, Once a day, Marion Perry MD, 81 mg at 11/15/22 1030 bismuth subsalicylate (PEPTO BISMOL) 262 MG/15ML suspension 30 mL, 30 mL, Oral, Q6H PRN, Marion Perry MD, 30 mL at 11/05/22 2127 brimonidine (ALPHAGAN) 0.2 % ophthalmic solution 1 drop, 1 drop, Both Eyes, 3 times per day, Urban Perry MD, 1 drop at 11/15/22 1556 calcium carbonate (TUMS) chewable tablet 1,000 mg, 1,000 mg, Oral, Q2H PRN, Marion Perry MD, 1,000 mg at 11/01/22 1313 carvedilol (COREG) tablet 3.125 mg, 3.125 mg, Oral, 2 times per day, Raul Vo MD, 3.125 mg at11/15/22 1844 nicotine (NICODERM CQ) patch 21 mg, 21 mg, Transdermal, Once a day, 21 mg at 11/15/22 1027 AND Check Patch Placement, , Transdermal, 2 times per day, Marion Perry MD, Check Patch Placement at 11/15/22 1032 cholecalciferol (VITAMIN D3) capsule 50,000 Units, 50,000 Units, Oral, Weekly, Soto Meng MD, 50,000 Units at 11/13/22 0851 clopidogrel (PLAVIX) tablet 75 mg, 75 mg, Oral, Once a day, Marion Perry MD, 75 mg at 11/15/22 1029 cyclobenzaprine (FLEXERIL) tablet 5 mg, 5 mg, Oral, TID PRN, Raul Vo MD, 5 mg at 11/14/222113 dextrose (GLUTOSE) 40 % oral gel 15 g, 15 g, Oral, PRN, Marion Perry MD dextrose 50 % IV solution 12.5 g, 12.5 g, Intravenous, PRN OR dextrose 50 % IV solution 25 g, 25 g, Intravenous, PRN, Marion Perry MD Fluticasone-Salmeterol (AIRDUO RESPICLICK) 232-14 MCG/ACT inhaler 1 puff, 1 puff, Inhalation, RT BID, Marion Perry MD, 1 puff at 11/15/22 1032 gabapentin (NEURONTIN) capsule 200 mg, 200 mg, Oral, 3 times per day, Marion Perry MD, 200 mgat 11/15/22 1434 glipiZIDE (GLUCOTROL) tablet 5 mg, 5 mg, Oral, Once a day, Soto Meng MD, 5 mg at 11/15/22 1029 glucagon injection reconstituted solution 1 mg, 1 mg, Intramuscular, PRN, Marion Perry MD hemorrhoidal ointment, , Apply externally, TID PRN, Marion Perry MD, Given at 11/13/222117 heparin (porcine) injection 5,000 Units, 5,000 Units, Subcutaneous, Q8H BERNARDO, Marion Perry MD,5,000 Units at 11/15/22 143 ibuprofen (MOTRIN) tablet 200 mg, 200 mg, Oral, Q6H PRN, Carolina Garibay MD ipratropium-albuterol (DUO-NEB) 0.5-2.5 mg/3 mL nebulizer solution 3 mL, 3 mL, Inhalation, Q 4 hours PRN, Marion Perry MD, 3 mL at 11/02/22 2344 ketoconazole (NIZORAL) 2 % cream, , Topical, Once a day, Shorty Menard DPM, Given at 11/15/22 1033 lidocaine (LIDOCARE) 4 % patch 3 patch, 3 patch, Transdermal, Once a day, Carolina Garibay MD, 3 patch at 11/15/22 1030 lidocaine (XYLOCAINE) 1 % injection 8 mL, 8 mL, Other, Once, Carolina Garibay MD losartan (COZAAR) tablet 25 mg, 25 mg, Oral, Once a day, Valencia Johnson MD, 25 mg at 11/15/22 1028 melatonin tablet 9 mg, 9 mg, Oral, Nightly, Marion Perry MD, 9 mg at 11/14/22 2114 muscle rub (ICY HOT) 10-15 % cream, , Topical, 2 times per day, Carolina Garibay MD, Given at 11/15/22 1033 oxyCODONE (ROXICODONE) immediate release tablet 5 mg, 5 mg, Oral, Q4H PRN, Carolian Garibay MD, 5 mgat 11/15/22 1437 polyethylene glycol (MIRALAX) packet 17 g, 17 g, Oral, BID PRN, Carolina Garibay MD, 17 g at 11/04/22 2159 rosuvastatin (CRESTOR) tablet 40 mg, 40 mg, Oral, Once a day, Marion Perry MD, 40 mg at 11/15/22 1031 simethicone (MYLICON) chewable tablet 80 mg, 80 mg, Oral, 4x Daily PRN, Marion Perry MD, 80 mg at 10/31/22 1818 tamsulosin (FLOMAX) 24 hr capsule 0.4 mg, 0.4 mg, Oral, After Breakfast, Marion Perry MD, 0.4mg at 11/15/22 1028 triamcinolone acetonide (KENALOG-40) injection 40 mg, 40 mg, Intra-articular, Once, Carolina Garibay MD Umeclidinium [place] (INCRUSE ELLIPTA) 62.5 MCG/ACT inhaler 62.5 mcg, 1 puff, Inhalation, RT Daily,Marion Perry MD, 62.5 mcg at 11/15/22 1032 DATA Vitals: 11/14/22 1954 11/15/22 0237 11/15/22 0750 11/15/22 1824 BP: 147/75 124/74 129/72 Pulse: 109 61 63 Resp: 18 18 Temp: 98.2 ??F (36.8 ??C) 97.4 ??F (36.3 ??C) TempSrc: Oral Oral SpO2: 99% 95% Weight: 229 lb (103.9 kg) Height: POC Glucose POC Glucose 11/15/22 0710 194 11/15/22 0534 165 Weights (last 3 days) Date/Time Weight 11/15/22 0237 229 lb (103.9 kg) @ANTICOAGSUMMARY@ @FLOWDATE(2706:LAST)@ Intake/Output Summary (Last 24 hours) at 11/15/20222005 Last data filed at 11/15/2022 1754 Gross per 24 hour Intake 920 ml Output 700 ml Net 220 ml PHYSICAL EXAM General: Patient in no acute distress, awake, alert Head: Atraumatic/Normocephalic Respiratory: No use of accessory muscles Extremities: No visible swelling Skin: No rashes, no ulcers on visible skin Neuro: No obvious neurologic deficits Psych: mood appears appropriate LABS CBC with Differential: No results found for: WBC, RBC, HGB, HEMOGLOBIN, HCT, HEMATOCRIT, PLT, MCV, MCH, MCHC, RDW, NEUTPERCENT, MONOPERCENT, LYMPHPERCENT, BASOPERCENT [ BMP: No results found for: NA, SODIUM, K, POTASSIUM, CL, CO2, BUN, CREATININE, LABCREA, EGFR, GLU, LABGLUC, GLUCOSE, GLUCOSEFL, CALCIUM, CALCIUMUR, ANIONGAP MG/PHOS: No results found for: MG, PHOS CKMB: No components found for: CKMB;2 PT/INR: No results found for: LABPROT, INR BNP: No results found for: BNP Last 3 Troponin: No components found for: TROPONINI;3 U/A: No results found for: COLORU, CLARITYU, GLUCOSEU, BILIRUBINUR, KETONESU, SPECGRAV, BLOODU, PHUR, UROBILINOGEN, NITRITE, LEUKOCYTESUR, MUCUS, RBCUA, WBCUA CMP: No results found for: NA, SODIUM, K, POTASSIUM, CL, CO2, BUN, CREATININE, LABCREA, GLU, LABGLUC, GLUCOSE, PROT, CALCIUM, ALBUMIN, BILITOT, ALKALINEPHO, ALT, AST, ANIONGAP, EGFR LFT's: No results found for: ALB, PROT Ionized Calcium: No components found for: IONCA ABG: No results found for: PHART, LFE3ONK, PO2ART, [id number], BEART, [id number] HgBA1c: No results found for: HGBA1C Lipid Panel: No results found for: CHOL, TRIG, HDL TSH: No results found for: TSH Lab Results Component Value Date GLUCOSE 125 (H) 11/12/2022 BUN 33 (H) 11/12/2022 CREATININE 1.14 11/12/2022 NA 137 11/12/2022 K 5.0 11/12/2022 CL 105 11/12/2022 CO2 23 11/12/2022 CALCIUM 9.0 11/12/2022 @RESU CBC: Recent Labs Lab Units 11/09/22 0416 WBC X(10)9/L BLOOD x10E9/L 7.8 HGB GM/DL BLOOD gm/dL 10.6* PLT CT X(10)9/L BLOOD x10E9/L 257 MCV FL BLOOD fl 91.2 BMP: Recent Labs Lab Units 11/12/22 0010 SODIUM MMOL/L BLOOD mmol/L 137 POTASSIUM MMOL/L BLOOD mmol/L 5.0 CHLORIDE mmol/L 105 CO2 mmol/L 23 BUN MG/DL BLOOD mg/dL 33* CREATININE mg/dL 1.14 GLUCOSE MG/DL BLOOD mg/dL 125* CALCIUM MG/DL BLOOD mg/dL 9.0 I reviewed the EKG tracing/Xray Recent Labs Lab Units 11/12/22 0010 SODIUM MMOL/L BLOOD mmol/L 137 POTASSIUM MMOL/L BLOOD mmol/L 5.0 CHLORIDE mmol/L 105 CO2 mmol/L 23 BUN MG/DL BLOOD mg/dL 33* CREATININE mg/dL 1.14 GLUCOSE MG/DL BLOOD mg/dL 125* CALCIUM MG/DL BLOOD mg/dL 9.0 ANION GAP BLOOD mmol/L 9 ASSESSMENT AND PLAN Principal Problem: Cerebrovascular accident Active Problems: Dysphagia Acute CVA Patient found to have a right acute on chronic MCA stroke and a SHEA ischemic stroke Patient received tPA in the ER Patient was admitted to the neuro ICU Patient was started on aspirin and Plavix Secondary stroke workup was completed Patient will be on 90 days of aspirin Plavix, end date 01/18/2023 Continue physical therapy Continue occupational therapy Physical medicine physician to oversee overall rehab program Hypertension Continue amlodipine 10 mg daily Bp low- dc norvasc DC IVF Bradycardia Decrease dose of coreg Mild renal insufficiency JUST finished IVF Inc po fluids F/U labs CAD Continue aspirin, coreg, plavix COPD Continue airduo Dysphagia Speech therapy DVT prophylaxis Continue heparin Code status Full code D/W patient , and attending physician about test results and treatment plan .No family in the room.Patient requiring monitoring of BP and HR while doing 3 hour intensive exercises to avoid fluctuations and hypotension . Aswell as monitoring of nutritional and fluid status , by weights, leg edema .Notified staff and patient to notify me of any change inconditions or new problems * Marion Perry MD - 11/14/2022 7:00 PM CDT HOSPITALIST PROGRESS NOTE Patient Name: Esperanza Chaparro : 1955 Medical Record: [id number] ATTENDING Carolina Garibay MD SUBJECTIVE 10/30 The patient is being seen for follow-up of Cerebrovascular accident. BP, BS , HR, labs, strength. .Chief Complaint Renal 42/1.5 Hr 50s BP low DC norvasc Decrease dose of coreg and cozaar strength improving, able to do therapy ok. No chest pain, no SOB, no dizziness, no palpitations, no new neurologic symptoms. No cough, No nausea or vomiting, No abdominal pain. History also obtained from Nurse and staff about how the patient did overnight and during the day strength improving, able to do therapy ok. Brief 10/31: Patient seen and examined this morning. Patient complaining of uncontrolled pain. Follow up with PM&R for further recommendations. Continue current medical management. 11/01: Patient seen and examined this afternoon. Patient continues to complain of uncontrolled pain.Follow up with PM&R for further recommendations. Have placed orders for Flexeril 5 mg TID PRN. Continue current medical management. 11/02: Patient seen and examined this morning. Patient complaining of uncontrolled pain. Follow up with PM&R for further recommendations. Patient has been having great toe pain. Possibly patient has gout. Follow up uric acid. Follow up Podiatry further recommendations regarding foot care. Continue current medical management. 11/03:Patient seen and examined this morning. Vitals and labs reviewed. Resting comfortably. No acute events overnight. Continue current medical management. 11/04 BP up once No complaints Doing better in therapy 11/05 No events reported Vitals/labs reviewed Participating with therapy 11/06 The patient was seen in the room this afternoon. The patient currently does not report any chest pain, shortness present nausea or vomiting No reported issues from the floor nurse. The most recent labs and vital signs were reviewed. 11/07 Patient seen and examined Doing fine No new issues to report Labs/vitals reviewed 11/08 Patient seen and examined Doing fine No new issues to report Labs/vitals reviewed 11/09 Patient seen and examined Doing ok No new issues to report Vitals reviewed Labs unremarkable 11/10 Patient seen and examined Doing alright No new issues to report Vitals reviewed 11/11 Patient seen and examined Doing fine No new issues to report Labs/vitals reviewed Family at bedside 11/12 The patient was seen and examined this morning. Patient appears to be in good spirits. Based on most recent notes, patient has been actively involved in therapy. Nursing has not reported any major issues throughout the day. The patient has not reported any chest pain, nausea, vomiting, or difficulty breathing. 11/13 Patient seen and examined Doing fine No new issues to report Resting comfortably 11/14 Patient seen and examined Doing alright No new issues to report Vitals reviewed istory Patient is a 67-year-old male with past medical history of CAD, COPD, hypertension, diabetes, sleepapnea, colon cancer status post colectomy who was transferred to [facility] with new neurologicaldeficits. Imaging confirmed acute on chronic right MCA and SHEA stroke. Patient did receive tPA in the ER. Patient was admitted to the neuro ICU. Patient's clinical condition stabilized. Patient was kept on aspirin Plavix for 90 days. Patient was started on statin. Patient is on Jardiance. Secondarystroke workup was completed. Patient also did complete a course of Unasyn for peritonsillar abscess. Patient worked with physical therapy and occupational therapy. Acute inpatient rehab was recommende d. HOME Medications Prior to Admission medications Medication Sig Start Date End Date Taking? Authorizing Provider Brinzolamide-Brimonidine 1-0.2 % suspension Administer 1 drop into both eyes 3 (three) times a day.Yes Historical Provider, budesonide-formoterol (SYMBICORT) 160-4.5 MCG/ACT inhaler Inhale 2 puffs RT 2 (two) times a day. Yes Historical Provider, cabergoline (DOSTINEX) 0.5 MG tablet Take 0.5 tablets (0.25 mg total) by mouth 2 (two) times a week. Yes Historical Provider, carboxymethylcellulose (Carboxymethylcellulose Sodium) solution Apply 1 drop (0.05 mL total) to both eyes 4 (four) times a day as needed for dry eyes. Yes Historical Provider, ergocalciferol (vitamin D2, Ergocalciferol,) 1.25 MG (07352 UT) capsule Take 1 capsule (50,000 Units total) by mouth once a week. Yes Historical Provider, melatonin tablet Take 8 tablets (8 mg total) by mouth nightly. Yes Historical Provider, Tiotropium [place] Monohydrate (Spiriva Respimat) 2.5 MCG/ACT aerosol solution Inhale 2 puffs (5 mcg total) RT Daily. Yes Historical Provider, CURRENT Medications Current Facility-Administered Medications: acetaminophen (TYLENOL) tablet 650 mg, 650 mg, Oral, Q8H BERNARDO, Marion Perry MD, 650 mg at 11/14/22 1458 aspirin EC tablet 81 mg, 81 mg, Oral, Once a day, Marion Perry MD, 81 mg at 11/14/22 0820 bismuth subsalicylate (PEPTO BISMOL) 262 MG/15ML suspension 30 mL, 30 mL, Oral, Q6H PRN, Mraion Perry MD, 30 mL at 11/05/22 2127 brimonidine (ALPHAGAN) 0.2 % ophthalmic solution 1 drop, 1 drop, Both Eyes, 3 times per day, Urban Perry MD, 1 drop at 11/14/22 1500 calcium carbonate (TUMS) chewable tablet 1,000 mg, 1,000 mg, Oral, Q2H PRN, Marion Perry MD, 1,000 mg at 11/01/22 1313 carvedilol (COREG) tablet 3.125 mg, 3.125 mg, Oral, 2 times per day, Raul Vo MD, 3.125 mg at11/13/22 1754 nicotine (NICODERM CQ) patch 21 mg, 21 mg, Transdermal, Once a day, 21 mg at 11/14/22 0800 AND Check Patch Placement, , Transdermal, 2 times per day, Marion Perry MD, Check Patch Placement at 11/14/22 0820 cholecalciferol (VITAMIN D3) capsule 50,000 Units, 50,000 Units, Oral, Weekly, Soto Meng MD, 50,000 Units at 11/13/22 0851 clopidogrel (PLAVIX) tablet 75 mg, 75 mg, Oral, Once a day, Marion Perry MD, 75 mg at 11/14/22 0754 cyclobenzaprine (FLEXERIL) tablet 5 mg, 5 mg, Oral, TID PRN, Raul Vo MD, 5 mg at 11/12/22 0523 dextrose (GLUTOSE) 40 % oral gel 15 g, 15 g, Oral, PRN, Marion Perry MD dextrose 50 % IV solution 12.5 g, 12.5 g, Intravenous, PRN OR dextrose 50 % IV solution 25 g, 25 g, Intravenous, PRN, Marion Perry MD Fluticasone-Salmeterol (AIRDUO RESPICLICK) 232-14 MCG/ACT inhaler 1 puff, 1 puff, Inhalation, RT BID, Marion Perry MD, 1 puff at 11/14/22 0801 gabapentin (NEURONTIN) capsule 200 mg, 200 mg, Oral, 3 times per day, Marion Perry MD, 200 mgat 11/14/22 1458 glipiZIDE (GLUCOTROL) tablet 5 mg, 5 mg, Oral, Once a day, Soto Meng MD, 5 mg at 11/14/22 0756 glucagon injection reconstituted solution 1 mg, 1 mg, Intramuscular, PRN, Marion Perry MD hemorrhoidal ointment, , Apply externally, TID PRN, Marion Perry MD, Given at 11/13/22 2118 heparin (porcine) injection 5,000 Units, 5,000 Units, Subcutaneous, Q8H BERNARDO, Marion Perry MD,5,000 Units at 11/14/22 145 ibuprofen (MOTRIN) tablet 200 mg, 200 mg, Oral, Q6H PRN, Caorlina Garibay MD ipratropium-albuterol (DUO-NEB) 0.5-2.5 mg/3 mL nebulizer solution 3 mL, 3 mL, Inhalation, Q 4 hours PRN, Marion Perry MD, 3 mL at 11/02/22 2344 ketoconazole (NIZORAL) 2 % cream, , Topical, Once a day, Shorty Menard DPM, Given at 11/14/22 1501 lidocaine (LIDOCARE) 4 % patch 3 patch, 3 patch, Transdermal, Once a day, Carolina Garibay MD, 3 patch at 11/14/22 0822 lidocaine (XYLOCAINE) 1 % injection 8 mL, 8 mL, Other, Once, Carolina Garibay MD losartan (COZAAR) tablet 25 mg, 25 mg, Oral, Once a day, Valencia Johnson MD, 25 mg at 11/13/22 0850 melatonin tablet 9 mg, 9 mg, Oral, Nightly, Marion Perry MD, 9 mg at 11/13/22 2116 muscle rub (ICY HOT) 10-15 % cream, , Topical, 2 times per day, Carolina Garibay MD, Given at 11/14/22 1500 oxyCODONE (ROXICODONE) immediate release tablet 5 mg, 5 mg, Oral, Q4H PRN, Carolina Garibay MD, 5 mgat 11/13/22 1756 polyethylene glycol (MIRALAX) packet 17 g, 17 g, Oral, BID PRN, Carolina Garibay MD, 17 g at 11/04/22 215 rosuvastatin (CRESTOR) tablet 40 mg, 40 mg, Oral, Once a day, Marion Perry MD, 40 mg at 11/14/22 0755 simethicone (MYLICON) chewable tablet 80 mg, 80 mg, Oral, 4x Daily PRN, Marion Perry MD, 80 mg at 10/31/22 1818 tamsulosin (FLOMAX) 24 hr capsule 0.4 mg, 0.4 mg, Oral, After Breakfast, Marion Perry MD, 0.4mg at 11/14/22 0757 triamcinolone acetonide (KENALOG-40) injection 40 mg, 40 mg, Intra-articular, Once, Carolina Garibay MD Umeclidinium [place] (INCRUSE ELLIPTA) 62.5 MCG/ACT inhaler 62.5 mcg, 1 puff, Inhalation, RT Daily,Marion Perry MD, 62.5 mcg at 11/14/22 0801 DATA Vitals: 11/13/22 1754 11/13/22 1942 11/14/22 0718 11/14/22 1750 BP: 114/72 144/79 109/68 131/72 Pulse: 81 56 58 54 Resp: Temp: 97.2 ??F (36.2 ??C) 97.4 ??F (36.3 ??C) TempSrc: Oral Oral SpO2: 94% 94% 95% Weight: Height: POC Glucose POC Glucose 11/14/22 1612 146 11/14/22 1107 211 11/14/22 0635 124 11/13/222020 183 Weights (last 3 days) None @ANTICOAGSUMMARY@ @FLOWDATE(2706:LAST)@ Intake/Output Summary (Last 24 hours) at 11/14/2022 1901 Last data filed at 11/14/2022 0819 Gross per 24 hour Intake 170 ml Output -- Net 170 ml PHYSICAL EXAM General: Patient in no acute distress, awake, alert Head: Atraumatic/Normocephalic Respiratory: No use of accessory muscles Extremities: No visible swelling Skin: No rashes, no ulcers on visible skin Neuro: No obvious neurologic deficits Psych: mood appears appropriate LABS CBC with Differential: No results found for: WBC, RBC, HGB, HEMOGLOBIN, HCT, HEMATOCRIT, PLT, MCV, MCH, MCHC, RDW, NEUTPERCENT, MONOPERCENT, LYMPHPERCENT, BASOPERCENT [ BMP: Lab Results Component Value Date NA 137 11/12/2022 K 5.0 11/12/2022 CL 105 11/12/2022 CO2 23 11/12/2022 BUN 33 (H) 11/12/2022 CREATININE 1.14 11/12/2022 GLUCOSE 125 (H) 11/12/2022 CALCIUM 9.0 11/12/2022 ANIONGAP 9 11/12/2022 MG/PHOS: No results found for: MG, PHOS CKMB: No components found for: CKMB;2 PT/INR: No results found for: LABPROT, INR BNP: No results found for: BNP Last 3 Troponin: No components found for: TROPONINI;3 U/A: No results found for: COLORU, CLARITYU, GLUCOSEU, BILIRUBINUR, KETONESU, SPECGRAV, BLOODU, PHUR, UROBILINOGEN, NITRITE, LEUKOCYTESUR, MUCUS, RBCUA, WBCUA CMP: Lab Results Component Value Date NA 137 11/12/2022 K 5.0 11/12/2022 CL 105 11/12/2022 CO2 23 11/12/2022 BUN 33 (H) 11/12/2022 CREATININE 1.14 11/12/2022 GLUCOSE 125 (H) 11/12/2022 CALCIUM 9.0 11/12/2022 ANIONGAP 9 11/12/2022 LFT's: No results found for: ALB, PROT Ionized Calcium: No components found for: IONCA ABG: No results found for: PHART, BGX4ESJ, PO2ART, WON3ART, BEART, [id number] HgBA1c: No results found for: HGBA1C Lipid Panel: No results found for: CHOL, TRIG, HDL TSH: No results found for: TSH Lab Results Component Value Date GLUCOSE 125 (H) 11/12/2022 BUN 33 (H) 11/12/2022 CREATININE 1.14 11/12/2022 NA 137 11/12/2022 K 5.0 11/12/2022 CL 105 11/12/2022 CO2 23 11/12/2022 CALCIUM 9.0 11/12/2022 @RESU CBC: Recent Labs Lab Units 11/09/22 0416 WBC X(10)9/L BLOOD x10E9/L 7.8 HGB GM/DL BLOOD gm/dL 10.6* PLT CT X(10)9/L BLOOD x10E9/L 257 MCV FL BLOOD fl 91.2 BMP: Recent Labs Lab Units 11/12/22 0010 SODIUM MMOL/L BLOOD mmol/L 137 POTASSIUM MMOL/L BLOOD mmol/L 5.0 CHLORIDE mmol/L 105 CO2 mmol/L 23 BUN MG/DL BLOOD mg/dL 33* CREATININE mg/dL 1.14 GLUCOSE MG/DL BLOOD mg/dL 125* CALCIUM MG/DL BLOOD mg/dL 9.0 I reviewed the EKG tracing/Xray Recent Labs Lab Units 11/12/22 0010 SODIUM MMOL/L BLOOD mmol/L 137 POTASSIUM MMOL/L BLOOD mmol/L 5.0 CHLORIDE mmol/L 105 CO2 mmol/L 23 BUN MG/DL BLOOD mg/dL 33* CREATININE mg/dL 1.14 GLUCOSE MG/DL BLOOD mg/dL 125* CALCIUM MG/DL BLOOD mg/dL 9.0 ANION GAP BLOOD mmol/L 9 ASSESSMENT AND PLAN Principal Problem: Cerebrovascular accident Active Problems: Dysphagia Acute CVA Patient found to have a right acute on chronic MCA stroke and a SHEA ischemic stroke Patient received tPA in the ER Patient was admitted to the neuro ICU Patient was started on aspirin and Plavix Secondary stroke workup was completed Patient will be on 90 days of aspirin Plavix, end date 01/18/2023 Continue physical therapy Continue occupational therapy Physical medicine physician to oversee overall rehab program Hypertension Continue amlodipine 10 mg daily Bp low- dc norvasc DC IVF Bradycardia Decrease dose of coreg Mild renal insufficiency JUST finished IVF Inc po fluids F/U labs CAD Continue aspirin, coreg, plavix COPD Continue airduo Dysphagia Speech therapy DVT prophylaxis Continue heparin Code status Full code D/W patient , and attending physician about test results and treatment plan .No family in the room.Patient requiring monitoring of BP and HR while doing 3 hour intensive exercises to avoid fluctuations and hypotension . Aswell as monitoring of nutritional and fluid status , by weights, leg edema .Notified staff and patient to notify me of any change inconditions or new problems * Marion Perry MD - 11/13/2022 10:13 PM CDT HOSPITALIST PROGRESS NOTE Patient Name: Esperanza Chaparro : 1955 Medical Record: [id number] ATTENDING Carolina Garibay MD SUBJECTIVE 10/30 The patient is being seen for follow-up of Cerebrovascular accident. BP, BS , HR, labs, strength. .Chief Complaint Renal 42/1.5 Hr 50s BP low DC norvasc Decrease dose of coreg and cozaar strength improving, able to do therapy ok. No chest pain, no SOB, no dizziness, no palpitations, no new neurologic symptoms. No cough, No nausea or vomiting, No abdominal pain. History also obtained from Nurse and staff about how the patient did overnight and during the day strength improving, able to do therapy ok. Brief 10/31: Patient seen and examined this morning. Patient complaining of uncontrolled pain. Follow up with PM&R for further recommendations. Continue current medical management. 11/01: Patient seen and examined this afternoon. Patient continues to complain of uncontrolled pain.Follow up with PM&R for further recommendations. Have placed orders for Flexeril 5 mg TID PRN. Continue current medical management. 11/02: Patient seen and examined this morning. Patient complaining of uncontrolled pain. Follow up with PM&R for further recommendations. Patient has been having great toe pain. Possibly patient has gout. Follow up uric acid. Follow up Podiatry further recommendations regarding foot care. Continue current medical management. 11/03:Patient seen and examined this morning. Vitals and labs reviewed. Resting comfortably. No acute events overnight. Continue current medical management. 11/04 BP up once No complaints Doing better in therapy 11/05 No events reported Vitals/labs reviewed Participating with therapy 11/06 The patient was seen in the room this afternoon. The patient currently does not report any chest pain, shortness present nausea or vomiting No reported issues from the floor nurse. The most recent labs and vital signs were reviewed. 11/07 Patient seen and examined Doing fine No new issues to report Labs/vitals reviewed 11/08 Patient seen and examined Doing fine No new issues to report Labs/vitals reviewed 11/09 Patient seen and examined Doing ok No new issues to report Vitals reviewed Labs unremarkable 11/10 Patient seen and examined Doing alright No new issues to report Vitals reviewed 11/11 Patient seen and examined Doing fine No new issues to report Labs/vitals reviewed Family at bedside 11/12 The patient was seen and examined this morning. Patient appears to be in good spirits. Based on most recent notes, patient has been actively involved in therapy. Nursing has not reported any major issues throughout the day. The patient has not reported any chest pain, nausea, vomiting, or difficulty breathing. 11/13 Patient seen and examined Doing fine No new issues to report Resting comfortably istory Patient is a 67-year-old male with past medical history of CAD, COPD, hypertension, diabetes, sleepapnea, colon cancer status post colectomy who was transferred to [facility] with new neurologicaldeficits. Imaging confirmed acute on chronic right MCA and SHEA stroke. Patient did receive tPA in the ER. Patient was admitted to the neuro ICU. Patient's clinical condition stabilized. Patient was kept on aspirin Plavix for 90 days. Patient was started on statin. Patient is on Jardiance. Secondarystroke workup was completed. Patient also did complete a course of Unasyn for peritonsillar abscess. Patient worked with physical therapy and occupational therapy. Acute inpatient rehab was recommende d. HOME Medications Prior to Admission medications Medication Sig Start Date End Date Taking? Authorizing Provider Brinzolamide-Brimonidine 1-0.2 % suspension Administer 1 drop into both eyes 3 (three) times a day.Yes Historical Provider, budesonide-formoterol (SYMBICORT) 160-4.5 MCG/ACT inhaler Inhale 2 puffs RT 2 (two) times a day. Yes Historical Provider, cabergoline (DOSTINEX) 0.5 MG tablet Take 0.5 tablets (0.25 mg total) by mouth 2 (two) times a week. Yes Historical Provider, carboxymethylcellulose (Carboxymethylcellulose Sodium) solution Apply 1 drop (0.05 mL total) to both eyes 4 (four) times a day as needed for dry eyes. Yes Historical Provider, ergocalciferol (vitamin D2, Ergocalciferol,) 1.25 MG (30419 UT) capsule Take 1 capsule (50,000 Units total) by mouth once a week. Yes Historical Provider, melatonin tablet Take 8 tablets (8 mg total) by mouth nightly. Yes Historical Provider, Tiotropium [place] Monohydrate (Spiriva Respimat) 2.5 MCG/ACT aerosol solution Inhale 2 puffs (5 mcg total) RT Daily. Yes Historical Provider, CURRENT Medications Current Facility-Administered Medications: acetaminophen (TYLENOL) tablet 650 mg, 650 mg, Oral, Q8H [facility], Marion Perry MD, 650 mg at 11/13/222116 aspirin EC tablet 81 mg, 81 mg, Oral, Once a day, Marion Perry MD, 81 mg at 11/13/22 0852 bismuth subsalicylate (PEPTO BISMOL) 262 MG/15ML suspension 30 mL, 30 mL, Oral, Q6H PRN, Marion Perry MD, 30 mL at 11/05/222126 brimonidine (ALPHAGAN) 0.2 % ophthalmic solution 1 drop, 1 drop, Both Eyes, 3 times per day, Urban Perry MD, 1 drop at 11/13/222117 calcium carbonate (TUMS) chewable tablet 1,000 mg, 1,000 mg, Oral, Q2H PRN, Marion Perry MD, 1,000 mg at 11/01/22 131 carvedilol (COREG) tablet 3.125 mg, 3.125 mg, Oral, 2 times per day, Raul Vo MD, 3.125 mg at11/13/22 175 nicotine (NICODERM CQ) patch 21 mg, 21 mg, Transdermal, Once a day, 21 mg at 11/13/22 0904 AND Check Patch Placement, , Transdermal, 2 times per day, Marion Perry MD, Check Patch Placement at 11/13/222118 cholecalciferol (VITAMIN D3) capsule 50,000 Units, 50,000 Units, Oral, Weekly, Soto Meng MD, 50,000 Units at 11/13/22 0851 clopidogrel (PLAVIX) tablet 75 mg, 75 mg, Oral, Once a day, Marion Perry MD, 75 mg at 11/13/22 0851 cyclobenzaprine (FLEXERIL) tablet 5 mg, 5 mg, Oral, TID PRN, Raul Vo MD, 5 mg at 11/12/22 0523 dextrose (GLUTOSE) 40 % oral gel 15 g, 15 g, Oral, PRN, Marion Perry MD dextrose 50 % IV solution 12.5 g, 12.5 g, Intravenous, PRN OR dextrose 50 % IV solution 25 g, 25 g, Intravenous, PRN, Marion Perry MD Fluticasone-Salmeterol (AIRDUO RESPICLICK) 232-14 MCG/ACT inhaler 1 puff, 1 puff, Inhalation, RT BID, Marion Perry MD, 1 puff at 11/13/222115 gabapentin (NEURONTIN) capsule 200 mg, 200 mg, Oral, 3 times per day, Marion Perry MD, 200 mgat 11/13/222116 glipiZIDE (GLUCOTROL) tablet 5 mg, 5 mg, Oral, Once a day, Soto Meng MD, 5 mg at 11/13/22 08 glucagon injection reconstituted solution 1 mg, 1 mg, Intramuscular, PRN, Marion Perry MD hemorrhoidal ointment, , Apply externally, TID PRN, Marion Perry MD, Given at 11/13/222117 heparin (porcine) injection 5,000 Units, 5,000 Units, Subcutaneous, Q8H BERNARDO, Marion Perry MD,5,000 Units at 11/13/222117 ibuprofen (MOTRIN) tablet 200 mg, 200 mg, Oral, Q6H PRN, Carolina Garibay MD ipratropium-albuterol (DUO-NEB) 0.5-2.5 mg/3 mL nebulizer solution 3 mL, 3 mL, Inhalation, Q 4 hours PRN, Marion Perry MD, 3 mL at 11/02/22 234 ketoconazole (NIZORAL) 2 % cream, , Topical, Once a day, Shorty Menard DPM, Given at 11/13/22 09 lidocaine (LIDOCARE) 4 % patch 3 patch, 3 patch, Transdermal, Once a day, Carolina Garibay MD, 3 patch at 11/13/22 0850 lidocaine (XYLOCAINE) 1 % injection 8 mL, 8 mL, Other, Once, Carolina Garibay MD losartan (COZAAR) tablet 25 mg, 25 mg, Oral, Once a day, Valencia Johnson MD, 25 mg at 11/13/22 0850 melatonin tablet 9 mg, 9 mg, Oral, Nightly, Marion Perry MD, 9 mg at 11/13/222115 muscle rub (ICY HOT) 10-15 % cream, , Topical, 2 times per day, Carolina Garibay MD, Given at 11/13/222116 oxyCODONE (ROXICODONE) immediate release tablet 5 mg, 5 mg, Oral, Q4H PRN, Carolina Garibay MD, 5 mgat 07/07/23 1756 polyethylene glycol (MIRALAX) packet 17 g, 17 g, Oral, BID PRN, Carolina Garibay MD, 17 g at 11/04/22 2159 rosuvastatin (CRESTOR) tablet 40 mg, 40 mg, Oral, Once a day, Marion Perry MD, 40 mg at 11/13/22 0849 simethicone (MYLICON) chewable tablet 80 mg, 80 mg, Oral, 4x Daily PRN, Marion Perry MD, 80 mg at 10/31/22 1818 tamsulosin (FLOMAX) 24 hr capsule 0.4 mg, 0.4 mg, Oral, After Breakfast, Marion Perry MD, 0.4mg at 11/13/22 0849 triamcinolone acetonide (KENALOG-40) injection 40 mg, 40 mg, Intra-articular, Once, Carolina Garibay MD Umeclidinium [place] (INCRUSE ELLIPTA) 62.5 MCG/ACT inhaler 62.5 mcg, 1 puff, Inhalation, RT Daily,Marion Perry MD, 62.5 mcg at 11/13/22 0903 DATA Vitals: 11/12/22 1637 11/12/22 2020 11/13/22 0715 11/13/22 1754 BP: 121/72 145/65 132/72 114/72 Pulse: 52 63 57 81 Resp: 17 16 Temp: 97.9 ??F (36.6 ??C) 97.6 ??F (36.4 ??C) TempSrc: Oral Oral SpO2: 95% 95% Weight: Height: POC Glucose POC Glucose 11/13/221 183 11/13/22 1604 161 11/13/22 0556 134 Weights (last 3 days) None @ANTICOAGSUMMARY@ @FLOWDATE(2706:LAST)@ Intake/Output Summary (Last 24 hours) at 11/13/20222212 Last data filed at 11/13/2022 1819 Gross per 24 hour Intake 537 ml Output 900 ml Net -363 ml PHYSICAL EXAM General appearance: awake, alert, cooperative, no distress HEENT: Normocephalic, No icterus, No oral lesions, Oral and nasal mucosa moist Neck: Supple, no lymphadenopathy Eyes: EOMI, Conjunctiva normal, No discharge Cardiovascular: Normal heart rate, Normal rhythm, No murmurs, No rubs, No gallops Respiratory: Normal breath sounds, No respiratory distress, No wheezing, No rhonchi, No rales, No chest tenderness. GI: Bowel sounds normal, Soft, No tenderness, No rebound or guarding, No masses. Abdomen: soft without mass, non-tender, with normal bowel sounds Extremities: no clubbing, cyanosis or edema, no calf tenderness Musculoskeletal:no swelling of joints.no redness Psychologic: Mood ok, no suicidal ideation. 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 LABS CBC with Differential: No results found for: WBC, RBC, HGB, HEMOGLOBIN, HCT, HEMATOCRIT, PLT, MCV, MCH, MCHC, RDW, NEUTPERCENT, MONOPERCENT, LYMPHPERCENT, BASOPERCENT [ BMP: Lab Results Component Value Date NA 137 11/12/2022 K 5.0 11/12/2022 CL 105 11/12/2022 CO2 23 11/12/2022 BUN 33 (H) 11/12/2022 CREATININE 1.14 11/12/2022 GLUCOSE 125 (H) 11/12/2022 CALCIUM 9.0 11/12/2022 ANIONGAP 9 11/12/2022 MG/PHOS: No results found for: MG, PHOS CKMB: No components found for: CKMB;2 PT/INR: No results found for: LABPROT, INR BNP: No results found for: BNP Last 3 Troponin: No components found for: TROPONINI;3 U/A: No results found for: COLORU, CLARITYU, GLUCOSEU, BILIRUBINUR, KETONESU, SPECGRAV, BLOODU, PHUR, UROBILINOGEN, NITRITE, LEUKOCYTESUR, MUCUS, RBCUA, WBCUA CMP: Lab Results Component Value Date NA 137 11/12/2022 K 5.0 11/12/2022 CL 105 11/12/2022 CO2 23 11/12/2022 BUN 33 (H) 11/12/2022 CREATININE 1.14 11/12/2022 GLUCOSE 125 (H) 11/12/2022 CALCIUM 9.0 11/12/2022 ANIONGAP 9 11/12/2022 LFT's: No results found for: ALB, PROT Ionized Calcium: No components found for: IONCA ABG: No results found for: PHART, [id number], PO2ART, [id number], BEART, [id number] HgBA1c: No results found for: HGBA1C Lipid Panel: No results found for: CHOL, TRIG, HDL TSH: No results found for: TSH Lab Results Component Value Date GLUCOSE 125 (H) 11/12/2022 BUN 33 (H) 11/12/2022 CREATININE 1.14 11/12/2022 NA 137 11/12/2022 K 5.0 11/12/2022 CL 105 11/12/2022 CO2 23 11/12/2022 CALCIUM 9.0 11/12/2022 @RESU CBC: Recent Labs Lab Units 11/09/22 0416 WBC X(10)9/L BLOOD x10E9/L 7.8 HGB GM/DL BLOOD gm/dL 10.6* PLT CT X(10)9/L BLOOD x10E9/L 257 MCV FL BLOOD fl 91.2 BMP: Recent Labs Lab Units 11/12/22 0010 SODIUM MMOL/L BLOOD mmol/L 137 POTASSIUM MMOL/L BLOOD mmol/L 5.0 CHLORIDE mmol/L 105 CO2 mmol/L 23 BUN MG/DL BLOOD mg/dL 33* CREATININE mg/dL 1.14 GLUCOSE MG/DL BLOOD mg/dL 125* CALCIUM MG/DL BLOOD mg/dL 9.0 I reviewed the EKG tracing/Xray Recent Labs Lab Units 11/12/22 0010 SODIUM MMOL/L BLOOD mmol/L 137 POTASSIUM MMOL/L BLOOD mmol/L 5.0 CHLORIDE mmol/L 105 CO2 mmol/L 23 BUN MG/DL BLOOD mg/dL 33* CREATININE mg/dL 1.14 GLUCOSE MG/DL BLOOD mg/dL 125* CALCIUM MG/DL BLOOD mg/dL 9.0 ANION GAP BLOOD mmol/L 9 ASSESSMENT AND PLAN Principal Problem: Cerebrovascular accident Active Problems: Dysphagia Acute CVA Patient found to have a right acute on chronic MCA stroke and a SHEA ischemic stroke Patient received tPA in the ER Patient was admitted to the neuro ICU Patient was started on aspirin and Plavix Secondary stroke workup was completed Patient will be on 90 days of aspirin Plavix, end date 01/18/2023 Continue physical therapy Continue occupational therapy Physical medicine physician to oversee overall rehab program Hypertension Continue amlodipine 10 mg daily Bp low- dc norvasc DC IVF Bradycardia Decrease dose of coreg Mild renal insufficiency JUST finished IVF Inc po fluids F/U labs CAD Continue aspirin, coreg, plavix COPD Continue airduo Dysphagia Speech therapy DVT prophylaxis Continue heparin Code status Full code D/W patient , and attending physician about test results and treatment plan .No family in the room.Patient requiring monitoring of BP and HR while doing 3 hour intensive exercises to avoid fluctuations and hypotension . Aswell as monitoring of nutritional and fluid status , by weights, leg edema .Notified staff and patient to notify me of any change inconditions or new problems * Carolina Garibay MD - 11/13/2022 2:06 PM CDT PM&R PROGRESS NOTE This is Face to Face Visit note Esperanza Chaparro is a 67 y.o. male patient. Comfortably sitting in chair, no distress, pain in hip REVIEW OF FUNCTIONAL STATUS SM Functional Status PT Data (since 11/10/2022) None SM Functional Status OT Data (since 11/10/2022) None EATING: supervision and cues for visual scanning to the left and for clearing left side of mouth (some spilling on left side) ORAL HYGIENE: supervision, cues for thoroughness TOILETING: dependent; pt uses bedpan and urinal, two person assist BATHING: max assist for sponge bathing bed level UB DRESSING: max assist LB DRESSING: dependent, bed level PUTTING ON/TAKING OFF FOOTWEAR: dependent, bed level Patient Active Problem List Diagnosis Cerebrovascular accident Chronic obstructive pulmonary disease Coronary arteriosclerosis Primary hypertension Dysphagia Past Medical History: Diagnosis Date Cancer Heart disease Stroke Current Facility-Administered Medications: acetaminophen (TYLENOL) tablet 650 mg, 650 mg, Oral, Q8H BERNARDO, Marion Perry MD, 650 mg at 11/13/22 0528 aspirin EC tablet 81 mg, 81 mg, Oral, Once a day, Marion Perry MD, 81 mg at 11/13/22 0852 bismuth subsalicylate (PEPTO BISMOL) 262 MG/15ML suspension 30 mL, 30 mL, Oral, Q6H PRN, Marion Perry MD, 30 mL at 11/05/222126 brimonidine (ALPHAGAN) 0.2 % ophthalmic solution 1 drop, 1 drop, Both Eyes, 3 times per day, Urban Perry MD, 1 drop at 11/13/22902 calcium carbonate (TUMS) chewable tablet 1,000 mg, 1,000 mg, Oral, Q2H PRN, Marion Perry MD, 1,000 mg at 11/01/22 1313 carvedilol (COREG) tablet 3.125 mg, 3.125 mg, Oral, 2 times per day, Raul Vo MD, 3.125 mg at11/13/22 0847 nicotine (NICODERM CQ) patch 21 mg, 21 mg, Transdermal, Once a day, 21 mg at 11/13/22 0904 AND Check Patch Placement, , Transdermal, 2 times per day, Marion Perry MD, Check Patch Placement at 11/13/22 09 cholecalciferol (VITAMIN D3) capsule 50,000 Units, 50,000 Units, Oral, Weekly, Soto Meng MD, 50,000 Units at 11/13/22 0851 clopidogrel (PLAVIX) tablet 75 mg, 75 mg, Oral, Once a day, Marion Perry MD, 75 mg at 11/13/22 0851 cyclobenzaprine (FLEXERIL) tablet 5 mg, 5 mg, Oral, TID PRN, Raul Vo MD, 5 mg at 11/12/22 0523 dextrose (GLUTOSE) 40 % oral gel 15 g, 15 g, Oral, PRN, Marion Perry MD dextrose 50 % IV solution 12.5 g, 12.5 g, Intravenous, PRN OR dextrose 50 % IV solution 25 g, 25 g, Intravenous, PRN, Marion Perry MD Fluticasone-Salmeterol (AIRDUO RESPICLICK) 232-14 MCG/ACT inhaler 1 puff, 1 puff, Inhalation, RT BID, Marion Perry MD, 1 puff at 11/13/22 09 gabapentin (NEURONTIN) capsule 200 mg, 200 mg, Oral, 3 times per day, Marion Perry MD, 200 mgat 11/13/22 0851 glipiZIDE (GLUCOTROL) tablet 5 mg, 5 mg, Oral, Once a day, Soto Meng MD, 5 mg at 11/13/22 0852 glucagon injection reconstituted solution 1 mg, 1 mg, Intramuscular, PRN, Marion Perry MD hemorrhoidal ointment, , Apply externally, TID PRN, Marion Perry MD, Given at 11/09/22 0104 heparin (porcine) injection 5,000 Units, 5,000 Units, Subcutaneous, Q8H BERNARDO, Marion Perry MD,5,000 Units at 11/13/22 0529 ibuprofen (MOTRIN) tablet 200 mg, 200 mg, Oral, Q6H PRN, Carolina Garibay MD ipratropium-albuterol (DUO-NEB) 0.5-2.5 mg/3 mL nebulizer solution 3 mL, 3 mL, Inhalation, Q 4 hours PRN, aMrion Perry MD, 3 mL at 11/02/22 2344 ketoconazole (NIZORAL) 2 % cream, , Topical, Once a day, Shorty Menard DPM, Given at 11/13/22 0903 lidocaine (LIDOCARE) 4 % patch 3 patch, 3 patch, Transdermal, Once a day, Carolina Garibay MD, 3 patch at 11/13/22 0850 lidocaine (XYLOCAINE) 1 % injection 8 mL, 8 mL, Other, Once, Carolina Garibay MD losartan (COZAAR) tablet 25 mg, 25 mg, Oral, Once a day, Valencia Johnson MD, 25 mg at 11/13/22 0850 melatonin tablet 9 mg, 9 mg, Oral, Nightly, Marion Perry MD, 9 mg at 11/12/22 2042 muscle rub (ICY HOT) 10-15 % cream, , Topical, 2 times per day, Carolina Garibay MD, Given at 11/13/22 0849 oxyCODONE (ROXICODONE) immediate release tablet 5 mg, 5 mg, Oral, Q4H PRN, Carolina Garibay MD, 5 mgat 11/13/22 1258 polyethylene glycol (MIRALAX) packet 17 g, 17 g, Oral, BID PRN, Carolina Garibay MD, 17 g at 11/04/22 215 rosuvastatin (CRESTOR) tablet 40 mg, 40 mg, Oral, Once a day, Marion Perry MD, 40 mg at 11/13/22 0849 simethicone (MYLICON) chewable tablet 80 mg, 80 mg, Oral, 4x Daily PRN, Marion Perry MD, 80 mg at 10/31/22 1818 tamsulosin (FLOMAX) 24 hr capsule 0.4 mg, 0.4 mg, Oral, After Breakfast, Marion ePrry MD, 0.4mg at 11/13/22 0849 triamcinolone acetonide (KENALOG-40) injection 40 mg, 40 mg, Intra-articular, Once, Carolina Garibay MD Umeclidinium [place] (INCRUSE ELLIPTA) 62.5 MCG/ACT inhaler 62.5 mcg, 1 puff, Inhalation, RT Daily,Marion Perry MD, 62.5 mcg at 11/13/22 0903 Review of Systems: Review of Systems Constitutional: Positive for fatigue. HENT: Negative for congestion. Eyes: Negative for discharge. Respiratory: Negative for apnea. Cardiovascular: Positive for leg swelling. Gastrointestinal: Negative for abdominal distention. Genitourinary: Negative for difficulty urinating. Musculoskeletal: Positive for arthralgias. Skin: Negative for color change. Neurological: Positive for weakness. Psychiatric/Behavioral: The patient is nervous/anxious. Physical Exam Vitals: 11/13/22 0715 BP: 132/72 Pulse: 57 Resp: 16 Temp: 97.6 ??F (36.4 ??C) SpO2: 95% Physical Exam Constitutional: General: He is not in acute distress. HENT: Head: Atraumatic. Eyes: Conjunctiva/sclera: Conjunctivae normal. Cardiovascular: Rate and Rhythm: Normal rate. Pulmonary: Effort: Pulmonary effort is normal. Abdominal: General: There is no distension. Skin: Findings: No erythema. Neurological: Coordination: Coordination abnormal. Neurologic Exam Mental Status Oriented to person. Lab Data Reviewed current lab results available to me today. Lab Results Component Value Date WBC 7.8 11/09/2022 HGB 10.6 (L) 11/09/2022 HCT 33.2 (L) 11/09/2022 MCV 91.2 11/09/2022 PLT 257 11/09/2022 Lab Results Component Value Date GLUCOSE 125 (H) 11/12/2022 CALCIUM 9.0 11/12/2022 NA 137 11/12/2022 K 5.0 11/12/2022 CO2 23 11/12/2022 CL 105 11/12/2022 BUN 33 (H) 11/12/2022 CREATININE 1.14 11/12/2022 ANIONGAP 9 11/12/2022 Imaging Reviewed current imaging results available to me today. No results found. Assessment & Plan: Esperanza Chaparro is a 67 y.o. 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 Speech therapy for swallow evaluation and cognitive evaluation. Skin/Wounds: - Skin integrity and Pressure ulcer prevention: frequent repositioning and adequate pressure relief. Maintain clean, dry skin. If needed, q2 hour turns when in bed and regular skin checks, application of protective barrier cream, toileting schedule. Wound RN consult Bowel & Bladder - monitor bowel movement - adjust scheduled and PRN bowel regimen as needed - monitor for adequate urinary output - should suspicion for urinary retention arise, PVR of random bladder scan will be performed for further assessment Continue current medical management. RECOMMENDATIONS At the current time, this inpatient hospital rehabilitation stay is medically necessary to achieve important health and functional goals. The patient requires frequent physician visits, 24-hour rehabilitation nursing, and a coordinated intensive rehabilitation program as described above to address complex medical, nursing, and rehabilitation needs. Continue inpatient comprehensive interdisciplinary rehabilitation to address strengthening, mobility skills, self care, cognitive functioning, speech, communication and swallowing needs. The patient continues to require the interdisciplinary team approach and 24 hour monitoring. DIET: Dietary Orders (From admission, onward) Start Ordered 10/29/22 1700 Nutritional supplement Oral 3 times daily with meals Comments: Send vanilla ensure high protein TID End/Expires: Until Specified Question Answer Comment Administration Route: Oral Place order in third constitution party system. Done 10/29/22 1346 10/28/222 Adult Diet Regular; 6 Soft & Bite-Sized (NDD III); 0 Thin (All Liquids) Diet effective now End/Expires: Until Specified References: [employer] Website Question Answer Comment Diet Type: Regular Diet Texture: 6 Soft & Bite-Sized (NDD III) Liquid Consistency: 0 Thin (All Liquids) Place order in third constitution party system. 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 On modified diet IVF dced on 11/06 # Gout : Stable On PRN Ibuprofen # DMII On oral meds # HTN - continue amlodipine and losartan #CAD s/p PCI - continue ASA, statin # COPD - home inhalers, duonebs prn # Pain: Oxy and Lidoderm Left hip XR on 11/06 Mild symmetric degenerative change the hip joints are present with minimal joint space narrowing. [facility]: SNF CAROLINA GARIBAY MD * Marion Perry MD - 11/12/2022 8:04 PM CDT HOSPITALIST PROGRESS NOTE Patient Name: Esperanza Chaparro : 1955 Medical Record: [id number] ATTENDING Carolina Garibay MD SUBJECTIVE 10/30 The patient is being seen for follow-up of Cerebrovascular accident. BP, BS , HR, labs, strength. .Chief Complaint Renal 42/1.5 Hr 50s BP low DC norvasc Decrease dose of coreg and cozaar strength improving, able to do therapy ok. No chest pain, no SOB, no dizziness, no palpitations, no new neurologic symptoms. No cough, No nausea or vomiting, No abdominal pain. History also obtained from Nurse and staff about how the patient did overnight and during the day strength improving, able to do therapy ok. Brief 10/31: Patient seen and examined this morning. Patient complaining of uncontrolled pain. Follow up with PM&R for further recommendations. Continue current medical management. 11/01: Patient seen and examined this afternoon. Patient continues to complain of uncontrolled pain.Follow up with PM&R for further recommendations. Have placed orders for Flexeril 5 mg TID PRN. Continue current medical management. 11/02: Patient seen and examined this morning. Patient complaining of uncontrolled pain. Follow up with PM&R for further recommendations. Patient has been having great toe pain. Possibly patient has gout. Follow up uric acid. Follow up Podiatry further recommendations regarding foot care. Continue current medical management. 11/03:Patient seen and examined this morning. Vitals and labs reviewed. Resting comfortably. No acute events overnight. Continue current medical management. 11/04 BP up once No complaints Doing better in therapy 11/05 No events reported Vitals/labs reviewed Participating with therapy 11/06 The patient was seen in the room this afternoon. The patient currently does not report any chest pain, shortness present nausea or vomiting No reported issues from the floor nurse. The most recent labs and vital signs were reviewed. 11/07 Patient seen and examined Doing fine No new issues to report Labs/vitals reviewed 11/08 Patient seen and examined Doing fine No new issues to report Labs/vitals reviewed 11/09 Patient seen and examined Doing ok No new issues to report Vitals reviewed Labs unremarkable 11/10 Patient seen and examined Doing alright No new issues to report Vitals reviewed 11/11 Patient seen and examined Doing fine No new issues to report Labs/vitals reviewed Family at bedside 11/12 The patient was seen and examined this morning. Patient appears to be in good spirits. Based on most recent notes, patient has been actively involved in therapy. Nursing has not reported any major issues throughout the day. The patient has not reported any chest pain, nausea, vomiting, or difficulty breathing. autumntory Patient is a 67-year-old male with past medical history of CAD, COPD, hypertension, diabetes, sleepapnea, colon cancer status post colectomy who was transferred to [facility] with new neurologicaldeficits. Imaging confirmed acute on chronic right MCA and SHEA stroke. Patient did receive tPA in the ER. Patient was admitted to the neuro ICU. Patient's clinical condition stabilized. Patient was kept on aspirin Plavix for 90 days. Patient was started on statin. Patient is on Jardiance. Secondarystroke workup was completed. Patient also did complete a course of Unasyn for peritonsillar abscess. Patient worked with physical therapy and occupational therapy. Acute inpatient rehab was recommende d. HOME Medications Prior to Admission medications Medication Sig Start Date End Date Taking? Authorizing Provider Brinzolamide-Brimonidine 1-0.2 % suspension Administer 1 drop into both eyes 3 (three) times a day.Yes Historical Provider, budesonide-formoterol (SYMBICORT) 160-4.5 MCG/ACT inhaler Inhale 2 puffs RT 2 (two) times a day. Yes Historical Provider, cabergoline (DOSTINEX) 0.5 MG tablet Take 0.5 tablets (0.25 mg total) by mouth 2 (two) times a week. Yes Historical Provider, carboxymethylcellulose (Carboxymethylcellulose Sodium) solution Apply 1 drop (0.05 mL total) to both eyes 4 (four) times a day as needed for dry eyes. Yes Historical Provider, ergocalciferol (vitamin D2, Ergocalciferol,) 1.25 MG (45735 UT) capsule Take 1 capsule (50,000 Units total) by mouth once a week. Yes Historical Provider, melatonin tablet Take 8 tablets (8 mg total) by mouth nightly. Yes Historical Provider, Tiotropium [place] Monohydrate (Spiriva Respimat) 2.5 MCG/ACT aerosol solution Inhale 2 puffs (5 mcg total) RT Daily. Yes Historical Provider, CURRENT Medications Current Facility-Administered Medications: acetaminophen (TYLENOL) tablet 650 mg, 650 mg, Oral, Q8H BERNARDO, Marion Perry MD, 650 mg at 11/12/22 1515 aspirin EC tablet 81 mg, 81 mg, Oral, Once a day, Marion Perry MD, 81 mg at 11/12/22 0953 bismuth subsalicylate (PEPTO BISMOL) 262 MG/15ML suspension 30 mL, 30 mL, Oral, Q6H PRN, Marion Perry MD, 30 mL at 11/05/22 2127 brimonidine (ALPHAGAN) 0.2 % ophthalmic solution 1 drop, 1 drop, Both Eyes, 3 times per day, Urban Perry MD, 1 drop at 11/12/22 1516 calcium carbonate (TUMS) chewable tablet 1,000 mg, 1,000 mg, Oral, Q2H PRN, Marion Perry MD, 1,000 mg at 11/01/22 1313 carvedilol (COREG) tablet 3.125 mg, 3.125 mg, Oral, 2 times per day, Raul Vo MD, 3.125 mg at11/12/22 1638 nicotine (NICODERM CQ) patch 21 mg, 21 mg, Transdermal, Once a day, 21 mg at 11/12/22 0958 AND Check Patch Placement, , Transdermal, 2 times per day, Marion Perry MD, Check Patch Placement at 11/12/22 0958 cholecalciferol (VITAMIN D3) capsule 50,000 Units, 50,000 Units, Oral, Weekly, Soto Meng MD, 50,000 Units at 11/06/22 0924 clopidogrel (PLAVIX) tablet 75 mg, 75 mg, Oral, Once a day, Marion Perry MD, 75 mg at 11/12/22 0954 cyclobenzaprine (FLEXERIL) tablet 5 mg, 5 mg, Oral, TID PRN, Raul Vo MD, 5 mg at 11/12/22 0523 dextrose (GLUTOSE) 40 % oral gel 15 g, 15 g, Oral, PRN, Marion Perry MD dextrose 50 % IV solution 12.5 g, 12.5 g, Intravenous, PRN OR dextrose 50 % IV solution 25 g, 25 g, Intravenous, PRN, Marion Perry MD Fluticasone-Salmeterol (AIRDUO RESPICLICK) 232-14 MCG/ACT inhaler 1 puff, 1 puff, Inhalation, RT BID, Marion Perry MD, 1 puff at 11/12/22 0951 gabapentin (NEURONTIN) capsule 200 mg, 200 mg, Oral, 3 times per day, Marion Perry MD, 200 mgat 11/12/22 1515 glipiZIDE (GLUCOTROL) tablet 5 mg, 5 mg, Oral, Once a day, Soto Meng MD, 5 mg at 11/12/22 0957 glucagon injection reconstituted solution 1 mg, 1 mg, Intramuscular, PRN, Marion Perry MD hemorrhoidal ointment, , Apply externally, TID PRN, Marion Perry MD, Given at 11/09/22 0104 heparin (porcine) injection 5,000 Units, 5,000 Units, Subcutaneous, Q8H BERNARDO, Marion Perry MD,5,000 Units at 11/12/22 1516 ibuprofen (MOTRIN) tablet 200 mg, 200 mg, Oral, Q6H PRN, Carolina Garibay MD ipratropium-albuterol (DUO-NEB) 0.5-2.5 mg/3 mL nebulizer solution 3 mL, 3 mL, Inhalation, Q 4 hours PRN, Marion Perry MD, 3 mL at 11/02/22 2344 ketoconazole (NIZORAL) 2 % cream, , Topical, Once a day, Shorty Menard DPM, Given at 11/10/22 0906 lidocaine (LIDOCARE) 4 % patch 3 patch, 3 patch, Transdermal, Once a day, Carolina Garibay MD, 3 patch at 11/12/22 0955 lidocaine (XYLOCAINE) 1 % injection 8 mL, 8 mL, Other, Once, Carolina Garibay MD losartan (COZAAR) tablet 25 mg, 25 mg, Oral, Once a day, Valencia Johnson MD, 25 mg at 11/12/22 0953 melatonin tablet 9 mg, 9 mg, Oral, Nightly, Marion Perry MD, 9 mg at 11/11/222052 muscle rub (ICY HOT) 10-15 % cream, , Topical, 2 times per day, Carolina Garibay MD, Given at 11/12/22 0952 oxyCODONE (ROXICODONE) immediate release tablet 5 mg, 5 mg, Oral, Q4H PRN, Carolina Garibay MD, 5 mgat 11/12/22 05 polyethylene glycol (MIRALAX) packet 17 g, 17 g, Oral, BID PRN, Carolina Garibay MD, 17 g at 11/04/22 215 rosuvastatin (CRESTOR) tablet 40 mg, 40 mg, Oral, Once a day, Marion Perry MD, 40 mg at 11/12/22 0952 simethicone (MYLICON) chewable tablet 80 mg, 80 mg, Oral, 4x Daily PRN, Marion Perry MD, 80 mg at 10/31/22 1818 tamsulosin (FLOMAX) 24 hr capsule 0.4 mg, 0.4 mg, Oral, After Breakfast, Marion Perry MD, 0.4mg at 11/12/22 0953 triamcinolone acetonide (KENALOG-40) injection 40 mg, 40 mg, Intra-articular, Once, Carolina Garibay MD Umeclidinium [place] (INCRUSE ELLIPTA) 62.5 MCG/ACT inhaler 62.5 mcg, 1 puff, Inhalation, RT Daily,Marion Perry MD, 62.5 mcg at 11/12/22 0951 DATA Vitals: 11/11/22 1647 11/11/22 1905 11/12/22 0720 11/12/22 1637 BP: 120/72 142/70 135/75 121/72 Pulse: 56 60 53 52 Resp: 17 17 Temp: 98.1 ??F (36.7 ??C) 97.7 ??F (36.5 ??C) TempSrc: Oral Oral SpO2: 95% 94% Weight: Height: POC Glucose POC Glucose 11/12/22 1600 163 11/12/22 0603 142 Weights (last 3 days) None @ANTICOAGSUMMARY@ @FLOWDATE(2706:LAST)@ Intake/Output Summary (Last 24 hours) at 11/12/20222003 Last data filed at 11/12/2022 1806 Gross per 24 hour Intake 860 ml Output 700 ml Net 160 ml PHYSICAL EXAM General appearance: awake, alert, cooperative, no distress HEENT: Normocephalic, No icterus, No oral lesions, Oral and nasal mucosa moist Neck: Supple, no lymphadenopathy Eyes: EOMI, Conjunctiva normal, No discharge Cardiovascular: Normal heart rate, Normal rhythm, No murmurs, No rubs, No gallops Respiratory: Normal breath sounds, No respiratory distress, No wheezing, No rhonchi, No rales, No chest tenderness. GI: Bowel sounds normal, Soft, No tenderness, No rebound or guarding, No masses. Abdomen: soft without mass, non-tender, with normal bowel sounds Extremities: no clubbing, cyanosis or edema, no calf tenderness Musculoskeletal:no swelling of joints.no redness Psychologic: Mood ok, no suicidal ideation. 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 LABS CBC with Differential: No results found for: WBC, RBC, HGB, HEMOGLOBIN, HCT, HEMATOCRIT, PLT, MCV, MCH, MCHC, RDW, NEUTPERCENT, MONOPERCENT, LYMPHPERCENT, BASOPERCENT [ BMP: Lab Results Component Value Date NA 137 11/12/2022 K 5.0 11/12/2022 CL 105 11/12/2022 CO2 23 11/12/2022 BUN 33 (H) 11/12/2022 CREATININE 1.14 11/12/2022 GLUCOSE 125 (H) 11/12/2022 CALCIUM 9.0 11/12/2022 ANIONGAP 9 11/12/2022 MG/PHOS: No results found for: MG, PHOS CKMB: No components found for: CKMB;2 PT/INR: No results found for: LABPROT, INR BNP: No results found for: BNP Last 3 Troponin: No components found for: TROPONINI;3 U/A: No results found for: COLORU, CLARITYU, GLUCOSEU, BILIRUBINUR, KETONESU, SPECGRAV, BLOODU, PHUR, UROBILINOGEN, NITRITE, LEUKOCYTESUR, MUCUS, RBCUA, WBCUA CMP: Lab Results Component Value Date NA 137 11/12/2022 K 5.0 11/12/2022 CL 105 11/12/2022 CO2 23 11/12/2022 BUN 33 (H) 11/12/2022 CREATININE 1.14 11/12/2022 GLUCOSE 125 (H) 11/12/2022 CALCIUM 9.0 11/12/2022 ANIONGAP 9 11/12/2022 LFT's: No results found for: ALB, PROT Ionized Calcium: No components found for: IONCA ABG: No results found for: PHART, MOW5SFE, PO2ART, RII5USJ, BEART, B6LBTETM HgBA1c: No results found for: HGBA1C Lipid Panel: No results found for: CHOL, TRIG, HDL TSH: No results found for: TSH Lab Results Component Value Date GLUCOSE 125 (H) 11/12/2022 BUN 33 (H) 11/12/2022 CREATININE 1.14 11/12/2022 NA 137 11/12/2022 K 5.0 11/12/2022 CL 105 11/12/2022 CO2 23 11/12/2022 CALCIUM 9.0 11/12/2022 @RESU CBC: Recent Labs Lab Units 11/09/22 0416 WBC X(10)9/L BLOOD x10E9/L 7.8 HGB GM/DL BLOOD gm/dL 10.6* PLT CT X(10)9/L BLOOD x10E9/L 257 MCV FL BLOOD fl 91.2 BMP: Recent Labs Lab Units 11/12/22 0010 SODIUM MMOL/L BLOOD mmol/L 137 POTASSIUM MMOL/L BLOOD mmol/L 5.0 CHLORIDE mmol/L 105 CO2 mmol/L 23 BUN MG/DL BLOOD mg/dL 33* CREATININE mg/dL 1.14 GLUCOSE MG/DL BLOOD mg/dL 125* CALCIUM MG/DL BLOOD mg/dL 9.0 I reviewed the EKG tracing/Xray Recent Labs Lab Units 11/12/22 0010 SODIUM MMOL/L BLOOD mmol/L 137 POTASSIUM MMOL/L BLOOD mmol/L 5.0 CHLORIDE mmol/L 105 CO2 mmol/L 23 BUN MG/DL BLOOD mg/dL 33* CREATININE mg/dL 1.14 GLUCOSE MG/DL BLOOD mg/dL 125* CALCIUM MG/DL BLOOD mg/dL 9.0 ANION GAP BLOOD mmol/L 9 ASSESSMENT AND PLAN Principal Problem: Cerebrovascular accident Active Problems: Dysphagia Acute CVA Patient found to have a right acute on chronic MCA stroke and a SHEA ischemic stroke Patient received tPA in the ER Patient was admitted to the neuro ICU Patient was started on aspirin and Plavix Secondary stroke workup was completed Patient will be on 90 days of aspirin Plavix, end date 01/18/2023 Continue physical therapy Continue occupational therapy Physical medicine physician to oversee overall rehab program Hypertension Continue amlodipine 10 mg daily Bp low- dc norvasc DC IVF Bradycardia Decrease dose of coreg Mild renal insufficiency JUST finished IVF Inc po fluids F/U labs CAD Continue aspirin, coreg, plavix COPD Continue airduo Dysphagia Speech therapy DVT prophylaxis Continue heparin Code status Full code D/W patient , and attending physician about test results and treatment plan .No family in the room.Patient requiring monitoring of BP and HR while doing 3 hour intensive exercises to avoid fluctuations and hypotension . Aswell as monitoring of nutritional and fluid status , by weights, leg edema .Notified staff and patient to notify me of any change inconditions or new problems * Carolina Garibay MD - 11/12/2022 2:03 PM CDT PM&R PROGRESS NOTE This is Face to Face Visit note Esperanza Chaparro is a 67 y.o. male patient. In bed this morning , no distress, few Improvements seen . REVIEW OF FUNCTIONAL STATUS SM Functional Status PT Data (since 11/09/2022) Value Time User Bed Mobility Level of Assist Maximal Assistance; Total Assistance/Dependent 11/09/2022 3:00 PM Catherine Bajwa OT Bed Mobility Comment Pt rolled to L with max A for hand placement, force production, B LE positioning, and verbal cues due to impaired global strength and cognition. Pt required total A to roll towards R side secondary to L hemiplegia. 11/09/2022 3:00 PM Catherine Bajwa OT Functional Status OT Data (since 11/09/2022) Value Time User Grooming Close Supervision 11/09/2022 1:46 PM Catherine Bajwa OT Toileting Total Assistance/Dependent 11/09/2022 1:46 PM Catherine Bajwa OT Bed/Chair/WC Transfer Total Assistance/Dependent 11/09/2022 3:00 PM Catherine Bajwa OT 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 Data (since 11/09/2022) Value Time User Cognitive Communication Immediate memory; Short-term memory; Processing information of increased length or complexity; Semi-complex to complex attention; Task persistence; Self monitoring; Speed of processing; Planning and sequencing; Organization; Verbal problem solving; Visual strategies 11/11/2022 2:[address] [facility] Dysphagia [facility] Swallow strategy training; Oral care; Dysphagia diet training 11/11/2022 2:[address] [facility] Compensatory Swallow Techniques Small bites; Small sips; Eat slowly-control rate; Seated upright with all PO intake; Monitor oral spillage; Oral care post PO intake; Other (comment) Avoid large bore straw 11/11/2022 2:[address] [facility] ST Narrative Mr. Chaparro was seen in the dining room for speech therapy this afternoon. He was awake, alert and family was present for family training (mom, sister, son in law) He was seated upright in chair, reclined for comfort. He was cooperative with the following therapy tasks. 1. Scanning: Required cue to scan your whole tray to locate utensils, napkin and left portions of food on his tray. 2. Memory: patient recalled OIL GAS AND PIPE TESTER had set up a trial tray for lunch. Recalled 4 safe swallow strategies independently. 3. Swallowing: observed with [employer] 7/0 trial tray with same items he had on previous trial tray (cheeseburger, fries, soda). Reviewed with patient the reasons his diet was not upgraded following last trial tray. He initially argued, but stated he was ready to try again and when asked what the number one strategy he needed to impletment was he replied not talking while eating . He was able to follow through with only occasional cues for the first part of meal, then required moderate direct cues by the end. He was able to rate his use of the strategy appropriately and states it was hard at the end because he lost focus and was distracted by pain. Participated in discussion of how his pain is chronic and if it interferes with his ability to follow his safe swallow strategies it'll affect his potential for diet upgrade. He expressed understanding. Patient instructed throughout to utilize a full lingual sweep, digital pressure to his left cheek and alternating liquid wash to clear oral cavity. He required moderate cues to do so when needed. Frequently indicated his mouth was clean when in fact there was a large amount of residue in left cheek. Required cues to delay next bite until oral cavity was clear. Overall better safety noted this date, however, broke down as he got tired and distracted by pain. Education provided to family on aspiration precautions, nature of patient's dysphagia and general information regarding oral stage deficits. They expressed understanding. Will continue current diet for now and practice with another trial tray tomorrow. 4. 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 Discussed areas of concern for IADL tasks at home such as medication management, paying bills, cooking, etc. Due to deficits in attention/concentration, neglect, problem solving/reasoning, memory and executive functioning. Discussed home safety barriers. Patient's family verbalized understanding that the would need 24 hour direct assist with these activities due to deficits related to the stroke. 5. Pt remains in wheelchair with call light and phone within reach. Alarm on. Family present in room and nurse arriving to administer medications. 11/11/2022 4:[address] [facility] Patient Active Problem List Diagnosis Cerebrovascular accident Chronic obstructive pulmonary disease Coronary arteriosclerosis Primary hypertension Dysphagia Past Medical History: Diagnosis Date Cancer Heart disease Stroke Current Facility-Administered Medications: acetaminophen (TYLENOL) tablet 650 mg, 650 mg, Oral, Q8H BERNARDO, Marion Perry MD, 650 mg at 11/12/22 0523 aspirin EC tablet 81 mg, 81 mg, Oral, Once a day, Marion Perry MD, 81 mg at 11/12/22 0953 bismuth subsalicylate (PEPTO BISMOL) 262 MG/15ML suspension 30 mL, 30 mL, Oral, Q6H PRN, Marion Perry MD, 30 mL at 11/05/222126 brimonidine (ALPHAGAN) 0.2 % ophthalmic solution 1 drop, 1 drop, Both Eyes, 3 times per day, Urban Perry MD, 1 drop at 11/12/22 0951 calcium carbonate (TUMS) chewable tablet 1,000 mg, 1,000 mg, Oral, Q2H PRN, Marion Perry MD, 1,000 mg at 11/01/22 1313 carvedilol (COREG) tablet 3.125 mg, 3.125 mg, Oral, 2 times per day, Raul Vo MD, 3.125 mg at11/12/22 0953 nicotine (NICODERM CQ) patch 21 mg, 21 mg, Transdermal, Once a day, 21 mg at 11/12/22 0958 AND Check Patch Placement, , Transdermal, 2 times per day, Marion Perry MD, Check Patch Placement at 11/12/22 0958 cholecalciferol (VITAMIN D3) capsule 50,000 Units, 50,000 Units, Oral, Weekly, Soto Meng MD, 50,000 Units at 11/06/22 0924 clopidogrel (PLAVIX) tablet 75 mg, 75 mg, Oral, Once a day, Marion Perry MD, 75 mg at 11/12/22 0954 cyclobenzaprine (FLEXERIL) tablet 5 mg, 5 mg, Oral, TID PRN, Raul Vo MD, 5 mg at 11/12/22 0523 dextrose (GLUTOSE) 40 % oral gel 15 g, 15 g, Oral, PRN, Marion Perry MD dextrose 50 % IV solution 12.5 g, 12.5 g, Intravenous, PRN OR dextrose 50 % IV solution 25 g, 25 g, Intravenous, PRN, Marion Perry MD Fluticasone-Salmeterol (AIRDUO RESPICLICK) 232-14 MCG/ACT inhaler 1 puff, 1 puff, Inhalation, RT BID, Marion Perry MD, 1 puff at 11/12/22 0951 gabapentin (NEURONTIN) capsule 200 mg, 200 mg, Oral, 3 times per day, Marion Perry MD, 200 mgat 11/12/22 0954 glipiZIDE (GLUCOTROL) tablet 5 mg, 5 mg, Oral, Once a day, Soto Meng MD, 5 mg at 11/12/22 0957 glucagon injection reconstituted solution 1 mg, 1 mg, Intramuscular, PRN, Marion Perry MD hemorrhoidal ointment, , Apply externally, TID PRN, Marion Perry MD, Given at 11/09/22 0104 heparin (porcine) injection 5,000 Units, 5,000 Units, Subcutaneous, Q8H BERNARDO, Marion Perry MD,5,000 Units at 11/12/22 0523 ibuprofen (MOTRIN) tablet 200 mg, 200 mg, Oral, Q6H PRN, Carolina Garibay MD ipratropium-albuterol (DUO-NEB) 0.5-2.5 mg/3 mL nebulizer solution 3 mL, 3 mL, Inhalation, Q 4 hours PRN, Marion Perry MD, 3 mL at 11/02/22 2344 ketoconazole (NIZORAL) 2 % cream, , Topical, Once a day, Shorty Menard DPM, Given at 11/10/22 0906 lidocaine (LIDOCARE) 4 % patch 3 patch, 3 patch, Transdermal, Once a day, Carolina Garibay MD, 3 patch at 11/12/22 0955 lidocaine (XYLOCAINE) 1 % injection 8 mL, 8 mL, Other, Once, Carolina Garibay MD losartan (COZAAR) tablet 25 mg, 25 mg, Oral, Once a day, Valencia Johnson MD, 25 mg at 11/12/22 0953 melatonin tablet 9 mg, 9 mg, Oral, Nightly, Marion Perry MD, 9 mg at 11/11/222052 muscle rub (ICY HOT) 10-15 % cream, , Topical, 2 times per day, Carolina Garibay MD, Given at 11/12/22951 oxyCODONE (ROXICODONE) immediate release tablet 5 mg, 5 mg, Oral, Q4H PRN, Carolina Garibay MD, 5 mgat 11/12/22 05 polyethylene glycol (MIRALAX) packet 17 g, 17 g, Oral, BID PRN, Carolina Garibay MD, 17 g at 11/04/22 215 rosuvastatin (CRESTOR) tablet 40 mg, 40 mg, Oral, Once a day, Marion Perry MD, 40 mg at 11/12/22951 simethicone (MYLICON) chewable tablet 80 mg, 80 mg, Oral, 4x Daily PRN, Marion Perry MD, 80 mg at 10/31/22 181 tamsulosin (FLOMAX) 24 hr capsule 0.4 mg, 0.4 mg, Oral, After Breakfast, Marion Perry MD, 0.4mg at 11/12/2253 triamcinolone acetonide (KENALOG-40) injection 40 mg, 40 mg, Intra-articular, Once, Carolina Garibay MD Umeclidinium [place] (INCRUSE ELLIPTA) 62.5 MCG/ACT inhaler 62.5 mcg, 1 puff, Inhalation, RT Daily,Marion Perry MD, 62.5 mcg at 11/12/22 0951 Review of Systems: Review of Systems Constitutional: Positive for fatigue. HENT: Negative for congestion. Eyes: Negative for discharge. Respiratory: Negative for apnea. Cardiovascular: Positive for leg swelling. Gastrointestinal: Negative for abdominal distention. Genitourinary: Negative for difficulty urinating. Musculoskeletal: Positive for arthralgias. Skin: Negative for color change. Neurological: Positive for weakness. Psychiatric/Behavioral: The patient is nervous/anxious. Physical Exam Vitals: 11/12/22 0720 BP: 135/75 Pulse: 53 Resp: 17 Temp: 97.7 ??F (36.5 ??C) SpO2: 94% Physical Exam Constitutional: General: He is not in acute distress. HENT: Head: Atraumatic. Eyes: Conjunctiva/sclera: Conjunctivae normal. Cardiovascular: Rate and Rhythm: Normal rate. Pulmonary: Effort: Pulmonary effort is normal. Abdominal: General: There is no distension. Skin: Findings: No erythema. Neurological: Coordination: Coordination abnormal. Neurologic Exam Mental Status Oriented to person. Lab Data Reviewed current lab results available to me today. Lab Results Component Value Date WBC 7.8 11/09/2022 HGB 10.6 (L) 11/09/2022 HCT 33.2 (L) 11/09/2022 MCV 91.2 11/09/2022 PLT 257 11/09/2022 Lab Results Component Value Date GLUCOSE 125 (H) 11/12/2022 CALCIUM 9.0 11/12/2022 NA 137 11/12/2022 K 5.0 11/12/2022 CO2 23 11/12/2022 CL 105 11/12/2022 BUN 33 (H) 11/12/2022 CREATININE 1.14 11/12/2022 ANIONGAP 9 11/12/2022 Imaging Reviewed current imaging results available to me today. No results found. Assessment & Plan: Esperanza Chaparro is a 67 y.o. 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 Speech therapy for swallow evaluation and cognitive evaluation. Skin/Wounds: - Skin integrity and Pressure ulcer prevention: frequent repositioning and adequate pressure relief. Maintain clean, dry skin. If needed, q2 hour turns when in bed and regular skin checks, application of protective barrier cream, toileting schedule. Wound RN consult Bowel & Bladder - monitor bowel movement - adjust scheduled and PRN bowel regimen as needed - monitor for adequate urinary output - should suspicion for urinary retention arise, PVR of random bladder scan will be performed for further assessment Continue current medical management. RECOMMENDATIONS At the current time, this inpatient hospital rehabilitation stay is medically necessary to achieve important health and functional goals. The patient requires frequent physician visits, 24-hour rehabilitation nursing, and a coordinated intensive rehabilitation program as described above to address complex medical, nursing, and rehabilitation needs. Continue inpatient comprehensive interdisciplinary rehabilitation to address strengthening, mobility skills, self care, cognitive functioning, speech, communication and swallowing needs. The patient continues to require the interdisciplinary team approach and 24 hour monitoring. DIET: Dietary Orders (From admission, onward) Start Ordered 10/29/22 1700 Nutritional supplement Oral 3 times daily with meals Comments: Send vanilla ensure high protein TID End/Expires: Until Specified Question Answer Comment Administration Route: Oral Place order in third constitution party system. Done 10/29/22 1346 10/28/222111 Adult Diet Regular; 6 Soft & Bite-Sized (NDD III); 0 Thin (All Liquids) Diet effective now End/Expires: Until Specified References: [employer] Website Question Answer Comment Diet Type: Regular Diet Texture: 6 Soft & Bite-Sized (NDD III) Liquid Consistency: 0 Thin (All Liquids) Place order in third constitution party system. 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 On modified diet IVF dced on 11/06 # Gout : Stable On PRN Ibuprofen # DMII On oral meds # HTN - continue amlodipine and losartan #CAD s/p PCI - continue ASA, statin # COPD - home inhalers, duonebs prn # Pain: Oxy and Lidoderm Left hip XR on 11/06 Mild symmetric degenerative change the hip joints are present with minimal joint space narrowing. [facility]: [facility] GARIBAY MD * Lory Valdes, PhD - 11/11/2022 5:58 PM CDT PSYCHOLOGY PROGRESS NOTE SUBJECTIVE: Mr. Chaparro's perception of rehabilitation progress/specific concerns: The patient noted gains with his ability to eat but indicated, I would like to be walking. Pain: location persisting shoulder and hip pain Mood: The patient described distress with his belief that his family will ???send me to a long-term. OBJECTIVE: Behavior and Appearance: alert Orientation: oriented to person, place, and circumstance Speech and Communication: dysarthric but comprehensible Affective Quality: congruent with mood and verbal expression Interactions: receptive to psychological support ASSESSMENT: Cognitive Function: Mr. Chaparro demonstrated improving insight into impairments and their implications Adjustment: Mr. Chaparro demonstrated continued distress with impairments and perception of rehabilitation gains Therapy Participation: Fair PLAN: Interventions: patient gains were reviewed concerns were discussed supportively continued efforts in rehab were encouraged LORY VALDES, PhD 11/11/2022 5:58 PM CDT * TRESA Grier - 11/11/2022 3:43 PM CDT Copping Machine Operator Plan Patient Name: Esperanza Chaparro Date: 11/11/22 Time: 3:44 PM CDT Attendees: Clarita (mom), Justa (sister), Calvin NEGRA Caregiver Name: Family Anticipated length of rehab stay: 23 days Expected level of supervision at time of discharge: Pt is dependent/ max assist for all areas of life. Expected level of physical care/assistance at time of discharge:Pt family has been in for training and states they are unable to meet pt's care needs Caregiver and Level of supervision/care able to provide: (list below) See above Patient and family goals:( list below) We want him to be able to come home again . Barriers to safe discharge and Solutions Discussed: (list below) Complete dependence-SNF placement for restorative care Recommendation for Family Training Sessions, Dates and Times Scheduled: 11/11 PRAVIN FIELDS SW 11/11/22 3:44 PM CDT * Marion Perry MD - 11/11/2022 2:58 PM CDT HOSPITALIST PROGRESS NOTE Patient Name: Esperanza Chaparro : 1955 Medical Record: [id number] ATTENDING Carolina Garibay MD SUBJECTIVE 10/30 The patient is being seen for follow-up of Cerebrovascular accident. BP, BS , HR, labs, strength. .Chief Complaint Renal 42/1.5 Hr 50s BP low DC norvasc Decrease dose of coreg and cozaar strength improving, able to do therapy ok. No chest pain, no SOB, no dizziness, no palpitations, no new neurologic symptoms. No cough, No nausea or vomiting, No abdominal pain. History also obtained from Nurse and staff about how the patient did overnight and during the day strength improving, able to do therapy ok. Brief 10/31: Patient seen and examined this morning. Patient complaining of uncontrolled pain. Follow up with PM&R for further recommendations. Continue current medical management. 11/01: Patient seen and examined this afternoon. Patient continues to complain of uncontrolled pain.Follow up with PM&R for further recommendations. Have placed orders for Flexeril 5 mg TID PRN. Continue current medical management. 11/02: Patient seen and examined this morning. Patient complaining of uncontrolled pain. Follow up with PM&R for further recommendations. Patient has been having great toe pain. Possibly patient has gout. Follow up uric acid. Follow up Podiatry further recommendations regarding foot care. Continue current medical management. 11/03:Patient seen and examined this morning. Vitals and labs reviewed. Resting comfortably. No acute events overnight. Continue current medical management. 11/04 BP up once No complaints Doing better in therapy 11/05 No events reported Vitals/labs reviewed Participating with therapy 11/06 The patient was seen in the room this afternoon. The patient currently does not report any chest pain, shortness present nausea or vomiting No reported issues from the floor nurse. The most recent labs and vital signs were reviewed. 11/07 Patient seen and examined Doing fine No new issues to report Labs/vitals reviewed 11/08 Patient seen and examined Doing fine No new issues to report Labs/vitals reviewed 11/09 Patient seen and examined Doing ok No new issues to report Vitals reviewed Labs unremarkable 11/10 Patient seen and examined Doing alright No new issues to report Vitals reviewed 11/11 Patient seen and examined Doing fine No new issues to report Labs/vitals reviewed Family at bedside isrony Patient is a 67-year-old male with past medical history of CAD, COPD, hypertension, diabetes, sleepapnea, colon cancer status post colectomy who was transferred to [facility] with new neurologicaldeficits. Imaging confirmed acute on chronic right MCA and SHEA stroke. Patient did receive tPA in the ER. Patient was admitted to the neuro ICU. Patient's clinical condition stabilized. Patient was kept on aspirin Plavix for 90 days. Patient was started on statin. Patient is on Jardiance. Secondarystroke workup was completed. Patient also did complete a course of Unasyn for peritonsillar abscess. Patient worked with physical therapy and occupational therapy. Acute inpatient rehab was recommende d. HOME Medications Prior to Admission medications Medication Sig Start Date End Date Taking? Authorizing Provider Brinzolamide-Brimonidine 1-0.2 % suspension Administer 1 drop into both eyes 3 (three) times a day.Yes Historical Provider, budesonide-formoterol (SYMBICORT) 160-4.5 MCG/ACT inhaler Inhale 2 puffs RT 2 (two) times a day. Yes Historical Provider, cabergoline (DOSTINEX) 0.5 MG tablet Take 0.5 tablets (0.25 mg total) by mouth 2 (two) times a week. Yes Historical Provider, carboxymethylcellulose (Carboxymethylcellulose Sodium) solution Apply 1 drop (0.05 mL total) to both eyes 4 (four) times a day as needed for dry eyes. Yes Historical Provider, ergocalciferol (vitamin D2, Ergocalciferol,) 1.25 MG (74987 UT) capsule Take 1 capsule (50,000 Units total) by mouth once a week. Yes Historical Provider, melatonin tablet Take 8 tablets (8 mg total) by mouth nightly. Yes Historical Provider, Tiotropium [place] Monohydrate (Spiriva Respimat) 2.5 MCG/ACT aerosol solution Inhale 2 puffs (5 mcg total) RT Daily. Yes Historical Provider, CURRENT Medications Current Facility-Administered Medications: acetaminophen (TYLENOL) tablet 650 mg, 650 mg, Oral, Q8H BERNARDO, Marion Perry MD, 650 mg at 11/11/22 0624 aspirin EC tablet 81 mg, 81 mg, Oral, Once a day, Marion Perry MD, 81 mg at 11/11/22 1003 bismuth subsalicylate (PEPTO BISMOL) 262 MG/15ML suspension 30 mL, 30 mL, Oral, Q6H PRN, Marion Perry MD, 30 mL at 11/05/22 2127 brimonidine (ALPHAGAN) 0.2 % ophthalmic solution 1 drop, 1 drop, Both Eyes, 3 times per day, Urban Perry MD, 1 drop at 11/11/22 1011 calcium carbonate (TUMS) chewable tablet 1,000 mg, 1,000 mg, Oral, Q2H PRN, Marion Perry MD, 1,000 mg at 11/01/22 1313 carvedilol (COREG) tablet 3.125 mg, 3.125 mg, Oral, 2 times per day, Raul Vo MD, 3.125 mg at11/11/22 1018 nicotine (NICODERM CQ) patch 21 mg, 21 mg, Transdermal, Once a day, 21 mg at 11/11/22 1009 AND Check Patch Placement, , Transdermal, 2 times per day, Marion Perry MD, Check Patch Placement at 11/11/22 1009 cholecalciferol (VITAMIN D3) capsule 50,000 Units, 50,000 Units, Oral, Weekly, Soto Meng MD, 50,000 Units at 11/06/22 0924 clopidogrel (PLAVIX) tablet 75 mg, 75 mg, Oral, Once a day, Marion Perry MD, 75 mg at 11/11/22 1005 cyclobenzaprine (FLEXERIL) tablet 5 mg, 5 mg, Oral, TID PRN, Raul Vo MD, 5 mg at 11/04/22 2155 dextrose (GLUTOSE) 40 % oral gel 15 g, 15 g, Oral, PRN, Marion Perry MD dextrose 50 % IV solution 12.5 g, 12.5 g, Intravenous, PRN OR dextrose 50 % IV solution 25 g, 25 g, Intravenous, PRN, Marion Perry MD Fluticasone-Salmeterol (AIRDUO RESPICLICK) 232-14 MCG/ACT inhaler 1 puff, 1 puff, Inhalation, RT BID, Marion Perry MD, 1 puff at 11/11/22 1012 gabapentin (NEURONTIN) capsule 200 mg, 200 mg, Oral, 3 times per day, Marion Perry MD, 200 mgat 11/11/22 1003 glipiZIDE (GLUCOTROL) tablet 5 mg, 5 mg, Oral, Once a day, Soto Meng MD, 5 mg at 11/11/22 1003 glucagon injection reconstituted solution 1 mg, 1 mg, Intramuscular, PRN, Marion Perry MD hemorrhoidal ointment, , Apply externally, TID PRN, Marion Perry MD, Given at 11/09/22 0104 heparin (porcine) injection 5,000 Units, 5,000 Units, Subcutaneous, Q8H BERNARDO, Marion Perry MD,5,000 Units at 11/11/22 0625 ibuprofen (MOTRIN) tablet 200 mg, 200 mg, Oral, Q6H PRN, Carolina Garibay MD ipratropium-albuterol (DUO-NEB) 0.5-2.5 mg/3 mL nebulizer solution 3 mL, 3 mL, Inhalation, Q 4 hours PRN, Marion Perry MD, 3 mL at 11/02/22 2344 ketoconazole (NIZORAL) 2 % cream, , Topical, Once a day, Shorty Menard DPM, Given at 11/10/22 0906 lidocaine (LIDOCARE) 4 % patch 3 patch, 3 patch, Transdermal, Once a day, Carolina Garibay MD, 3 patch at 11/11/22 1002 lidocaine (XYLOCAINE) 1 % injection 8 mL, 8 mL, Other, Once, Carolina Garibay MD losartan (COZAAR) tablet 25 mg, 25 mg, Oral, Once a day, Valencia Johnson MD, 25 mg at 11/11/22 1018 melatonin tablet 9 mg, 9 mg, Oral, Nightly, Marion Perry MD, 9 mg at 11/10/22 2110 muscle rub (ICY HOT) 10-15 % cream, , Topical, 2 times per day, Carolina Garibay MD, Given at 11/11/22 1007 oxyCODONE (ROXICODONE) immediate release tablet 5 mg, 5 mg, Oral, Q4H PRN, Carolina Garibay MD, 5 mgat 11/11/22 1006 polyethylene glycol (MIRALAX) packet 17 g, 17 g, Oral, BID PRN, Carolina Garibay MD, 17 g at 11/04/22 215 rosuvastatin (CRESTOR) tablet 40 mg, 40 mg, Oral, Once a day, Marion Perry MD, 40 mg at 11/11/22 1003 simethicone (MYLICON) chewable tablet 80 mg, 80 mg, Oral, 4x Daily PRN, Marion Perry MD, 80 mg at 10/31/22 1818 tamsulosin (FLOMAX) 24 hr capsule 0.4 mg, 0.4 mg, Oral, After Breakfast, Marion Perry MD, 0.4mg at 11/11/22 1004 triamcinolone acetonide (KENALOG-40) injection 40 mg, 40 mg, Intra-articular, Once, Carolina Garibay MD Umeclidinium [place] (INCRUSE ELLIPTA) 62.5 MCG/ACT inhaler 62.5 mcg, 1 puff, Inhalation, RT Daily,Marion Perry MD, 62.5 mcg at 11/11/22 1012 DATA Vitals: 11/10/22 1918 11/11/22 0800 11/11/22 1016 11/11/22 1018 BP: 147/73 148/77 115/74 Pulse: 53 51 81 Resp: 17 18 Temp: 97.6 ??F (36.4 ??C) 98.4 ??F (36.9 ??C) TempSrc: Oral Oral SpO2: 94% 95% Weight: Height: POC Glucose POC Glucose 11/11/22 0659 122 11/10/22 1605 139 Weights (last 3 days) None @ANTICOAGSUMMARY@ @FLOWDATE(2706:LAST)@ Intake/Output Summary (Last 24 hours) at 11/11/2022 1458 Last data filed at 11/11/2022 1315 Gross per 24 hour Intake 2139 ml Output 320 ml Net 1819 ml PHYSICAL EXAM General appearance: awake, alert, cooperative, no distress HEENT: Normocephalic, No icterus, No oral lesions, Oral and nasal mucosa moist Neck: Supple, no lymphadenopathy Eyes: EOMI, Conjunctiva normal, No discharge Cardiovascular: Normal heart rate, Normal rhythm, No murmurs, No rubs, No gallops Respiratory: Normal breath sounds, No respiratory distress, No wheezing, No rhonchi, No rales, No chest tenderness. GI: Bowel sounds normal, Soft, No tenderness, No rebound or guarding, No masses. Abdomen: soft without mass, non-tender, with normal bowel sounds Extremities: no clubbing, cyanosis or edema, no calf tenderness Musculoskeletal:no swelling of joints.no redness Psychologic: Mood ok, no suicidal ideation. 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 LABS CBC with Differential: Lab Results Component Value Date WBC 7.8 11/09/2022 HGB 10.6 (L) 11/09/2022 HCT 33.2 (L) 11/09/2022 PLT 257 11/09/2022 MCV 91.2 11/09/2022 MCH 29.1 11/09/2022 MCHC 31.9 11/09/2022 RDW 13.8 11/09/2022 [ BMP: Lab Results Component Value Date NA 142 11/09/2022 K 4.1 11/09/2022 CL 109 (H) 11/09/2022 CO2 26 11/09/2022 BUN 21 11/09/2022 CREATININE 0.97 11/09/2022 GLUCOSE 121 (H) 11/09/2022 CALCIUM 9.1 11/09/2022 ANIONGAP 7 (L) 11/09/2022 MG/PHOS: No results found for: MG, PHOS CKMB: No components found for: CKMB;2 PT/INR: No results found for: LABPROT, INR BNP: No results found for: BNP Last 3 Troponin: No components found for: TROPONINI;3 U/A: No results found for: COLORU, CLARITYU, GLUCOSEU, BILIRUBINUR, KETONESU, SPECGRAV, BLOODU, PHUR, UROBILINOGEN, NITRITE, LEUKOCYTESUR, MUCUS, RBCUA, WBCUA CMP: Lab Results Component Value Date NA 142 11/09/2022 K 4.1 11/09/2022 CL 109 (H) 11/09/2022 CO2 26 11/09/2022 BUN 21 11/09/2022 CREATININE 0.97 11/09/2022 GLUCOSE 121 (H) 11/09/2022 CALCIUM 9.1 11/09/2022 ANIONGAP 7 (L) 11/09/2022 LFT's: No results found for: ALB, PROT Ionized Calcium: No components found for: IONCA ABG: No results found for: PHART, IMI3PYF, PO2ART, [id number], BEART, [id number] HgBA1c: No results found for: HGBA1C Lipid Panel: No results found for: CHOL, TRIG, HDL TSH: No results found for: TSH Lab Results Component Value Date GLUCOSE 121 (H) 11/09/2022 BUN 21 11/09/2022 CREATININE 0.97 11/09/2022 NA 142 11/09/2022 K 4.1 11/09/2022 CL 109 (H) 11/09/2022 CO2 26 11/09/2022 CALCIUM 9.1 11/09/2022 @RESU CBC: Recent Labs Lab Units 11/09/22 0416 WBC X(10)9/L BLOOD x10E9/L 7.8 HGB GM/DL BLOOD gm/dL 10.6* PLT CT X(10)9/L BLOOD x10E9/L 257 MCV FL BLOOD fl 91.2 BMP: Recent Labs Lab Units 11/09/22 0416 SODIUM MMOL/L BLOOD mmol/L 142 POTASSIUM MMOL/L BLOOD mmol/L 4.1 CHLORIDE mmol/L 109* CO2 mmol/L 26 BUN MG/DL BLOOD mg/dL 21 CREATININE mg/dL 0.97 GLUCOSE MG/DL BLOOD mg/dL 121* CALCIUM MG/DL BLOOD mg/dL 9.1 I reviewed the EKG tracing/Xray Recent Labs Lab Units 11/09/22 0416 SODIUM MMOL/L BLOOD mmol/L 142 POTASSIUM MMOL/L BLOOD mmol/L 4.1 CHLORIDE mmol/L 109* CO2 mmol/L 26 BUN MG/DL BLOOD mg/dL 21 CREATININE mg/dL 0.97 GLUCOSE MG/DL BLOOD mg/dL 121* CALCIUM MG/DL BLOOD mg/dL 9.1 ANION GAP BLOOD mmol/L 7* ASSESSMENT AND PLAN Principal Problem: Cerebrovascular accident Active Problems: Dysphagia Acute CVA Patient found to have a right acute on chronic MCA stroke and a SHEA ischemic stroke Patient received tPA in the ER Patient was admitted to the neuro ICU Patient was started on aspirin and Plavix Secondary stroke workup was completed Patient will be on 90 days of aspirin Plavix, end date 01/18/2023 Continue physical therapy Continue occupational therapy Physical medicine physician to oversee overall rehab program Hypertension Continue amlodipine 10 mg daily Bp low- dc norvasc DC IVF Bradycardia Decrease dose of coreg Mild renal insufficiency JUST finished IVF Inc po fluids F/U labs CAD Continue aspirin, coreg, plavix COPD Continue airduo Dysphagia Speech therapy DVT prophylaxis Continue heparin Code status Full code D/W patient , and attending physician about test results and treatment plan .No family in the room.Patient requiring monitoring of BP and HR while doing 3 hour intensive exercises to avoid fluctuations and hypotension . Aswell as monitoring of nutritional and fluid status , by weights, leg edema .Notified staff and patient to notify me of any change inconditions or new problems * Luke Elizalde, RD - 11/11/2022 12:23 PM CDT CLINICAL NUTRITION REASSESSMENT: Pt seen for follow up. Pt reports appetite is good, denies GI complaints. Receiving Soft Bite Sized(6)/Advanced Soft/Dysphagia 3 diet, recorded po intake averaged 84% x 9 meals. Pt reports drinking Ensure; Ensure High Protein for Muscle Health provides 160 calories ,16 grams protein and 19 grams of carb per 8 oz serving. Weight down 5 lbs in past week. Labs reviewed, Hgb/hematocrit low. Blood sugars controlled, receiving glipizide. Skin care continues. Bowels moving. No new meds. Patient Active Problem List Diagnosis Cerebrovascular accident Chronic obstructive pulmonary disease Coronary arteriosclerosis Primary hypertension Dysphagia H/o HLD, DM, JAMES, colon cancer Weight: Admit Weight: 228 lb 4 oz (103.5 kg) (10/28/222211) Weight Method: Bed scale (10/28/222211) Latest Weight: 225 lb (102.1 kg) (11/07/222310) Weight Method: Bed scale (11/07/222310) Weight Comment: down 5 lbs in past week Dietary Orders (From admission, onward) Start Ordered 10/29/22 1700 Nutritional supplement Oral 3 times daily with meals Comments: Send vanilla ensure high protein TID End/Expires: Until Specified Question Answer Comment Administration Route: Oral Place order in third constitution party system. Done 10/29/22 1346 10/28/222111 Adult Diet Regular; 6 Soft & Bite-Sized (NDD III); 0 Thin (All Liquids) Diet effective now End/Expires: Until Specified References: IDDSI Website Question Answer Comment Diet Type: Regular Diet Texture: 6 Soft & Bite-Sized (NDD III) Liquid Consistency: 0 Thin (All Liquids) Place order in third constitution party system. Done 10/28/222110 Food Allergies: No known food allergies. Nutrition Related Concerns: . Nutrition Related Concerns Nutrition Related Concerns: Swallowing NutritionSupport: Nutrition Support: No New Medications: No new nutrition related meds Relevant Labs: H/H: Recent Labs Lab Units 11/09/22 0416 HGB GM/DL BLOOD gm/dL 10.6* HCT % BLOOD % 33.2* Recent Labs Lab Units 11/09/22 0416 SODIUM MMOL/L BLOOD mmol/L 142 POTASSIUM MMOL/L BLOOD mmol/L 4.1 CHLORIDE mmol/L 109* CO2 mmol/L 26 BUN MG/DL BLOOD mg/dL 21 CREATININE mg/dL 0.97 GLUCOSE MG/DL BLOOD mg/dL 121* CALCIUM MG/DL BLOOD mg/dL 9.1 ANION GAP BLOOD mmol/L 7* Accuchecks: 95-173 mg/dL Skin: . Midline Single Right Cephalic Vein - Upper Arm-Dressing Status: Clean, Dry, Intact Wound/Other Cyst/Abscess Coccyx Medial-Dressing Status: Other (Comment) [REMOVED] Wound/Other MASD Perineum-Dressing Status: Other (Comment) Last BM: Bowel Occurrence: Incontinent (11/10/222116) Care Plans: Plan of Care - Nutrition Care Plans 1 Author: Luke Elizalde RD Service: -- Author Type: Registered Dietitian Filed: 11/11/2022 12:23 PM Date of Service: 11/11/2022 12:23 PM Status: Signed Continuous Improvement Consultant: Luke Elizalde RD (Registered Dietitian) Problem: Inadequate Oral Intake Description: Oral food/beverage intake that is less than established reference standards or recommendations based on physiological needs. Related to: Decreased ability to consume sufficient energy, e.g., increased nutrition needs due to prolonged catabolic illness As evidenced by: estimated protein needs of 90-95 g/day. Goal: Improve Nutritional Status Outcome: Progressing Flowsheets (Taken 10/29/2022 1338) Meals and Snacks: (soft and bite sized (6) diet) General healthful diet Medical Food Supplement Therapy: (vanilla Ensure high protein TID) Commercial beverage/Oral nutrition supplement Education Needs: none Monitor: po intake, supplement intake, weight, labs, skin, BMs Recommendations: Advance diet per OIL GAS AND PIPE TESTER Continue vanilla Ensure HP TID Continue to follow every 5-7 days Luke Palmer MS, RD/PRE[facility] [employer] [id number] 11/11/22 12:23 PM CDT * Carolina Garibay MD - 11/11/2022 10:32 AM CDT PM&R PROGRESS NOTE This is Face to Face Visit note Esperanza Chaparro is a 67 y.o. male patient. Progressing slowly with therapy, no C/O dizziness, REVIEW OF FUNCTIONAL STATUS Functional Status PT Data (since 11/08/2022) Value Time User Bed Mobility Level of Assist Maximal Assistance; Total Assistance/Dependent 11/09/2022 3:00 PM Catherine Bajwa OT Bed Mobility Comment Pt rolled to L with max A for hand placement, force production, B LE positioning, and verbal cues due to impaired global strength and cognition. Pt required total A to roll towards R side secondary to L hemiplegia. 11/09/2022 3:00 PM Catherine Bajwa OT Functional Status OT Data (since 11/08/2022) Value Time User Grooming Close Supervision 11/09/2022 1:46 PM Catherine Bajwa OT Toileting Total Assistance/Dependent 11/09/2022 1:46 PM Catherine Bajwa OT Bed/Chair/WC Transfer Total Assistance/Dependent 11/09/2022 3:00 PM Catherine Bajwa OT Patient Active Problem List Diagnosis Cerebrovascular accident Chronic obstructive pulmonary disease Coronary arteriosclerosis Primary hypertension Dysphagia Past Medical History: Diagnosis Date Cancer Heart disease Stroke Current Facility-Administered Medications: acetaminophen (TYLENOL) tablet 650 mg, 650 mg, Oral, Q8H BERNARDO, Marion Perry MD, 650 mg at 11/11/22 0624 aspirin EC tablet 81 mg, 81 mg, Oral, Once a day, Marion Perry MD, 81 mg at 11/11/22 1003 bismuth subsalicylate (PEPTO BISMOL) 262 MG/15ML suspension 30 mL, 30 mL, Oral, Q6H PRN, Marion Perry MD, 30 mL at 11/05/22 2127 brimonidine (ALPHAGAN) 0.2 % ophthalmic solution 1 drop, 1 drop, Both Eyes, 3 times per day, Urban Perry MD, 1 drop at 11/11/22 1011 calcium carbonate (TUMS) chewable tablet 1,000 mg, 1,000 mg, Oral, Q2H PRN, Marion Perry MD, 1,000 mg at 11/01/22 1313 carvedilol (COREG) tablet 3.125 mg, 3.125 mg, Oral, 2 times per day, Raul Vo MD, 3.125 mg at11/11/22 1018 nicotine (NICODERM CQ) patch 21 mg, 21 mg, Transdermal, Once a day, 21 mg at 11/11/22 1009 AND Check Patch Placement, , Transdermal, 2 times per day, Marion Perry MD, Check Patch Placement at 11/11/22 1009 cholecalciferol (VITAMIN D3) capsule 50,000 Units, 50,000 Units, Oral, Weekly, Soto Meng MD, 50,000 Units at 11/06/22 0924 clopidogrel (PLAVIX) tablet 75 mg, 75 mg, Oral, Once a day, Marion Perry MD, 75 mg at 11/11/22 1005 cyclobenzaprine (FLEXERIL) tablet 5 mg, 5 mg, Oral, TID PRN, Raul Vo MD, 5 mg at 11/04/22 215 dextrose (GLUTOSE) 40 % oral gel 15 g, 15 g, Oral, PRN, Marion Perry MD dextrose 50 % IV solution 12.5 g, 12.5 g, Intravenous, PRN OR dextrose 50 % IV solution 25 g, 25 g, Intravenous, PRN, Marion Perry MD Fluticasone-Salmeterol (AIRDUO RESPICLICK) 232-14 MCG/ACT inhaler 1 puff, 1 puff, Inhalation, RT BID, Marion Perry MD, 1 puff at 11/11/22 1012 gabapentin (NEURONTIN) capsule 200 mg, 200 mg, Oral, 3 times per day, Marion Perry MD, 200 mgat 11/11/22 1003 glipiZIDE (GLUCOTROL) tablet 5 mg, 5 mg, Oral, Once a day, Soto Meng MD, 5 mg at 11/11/22 1003 glucagon injection reconstituted solution 1 mg, 1 mg, Intramuscular, PRN, Marion Perry MD hemorrhoidal ointment, , Apply externally, TID PRN, Marion Perry MD, Given at 11/09/22 0104 heparin (porcine) injection 5,000 Units, 5,000 Units, Subcutaneous, Q8H BERNARDO, Marion Perry MD,5,000 Units at 11/11/22 0625 ibuprofen (MOTRIN) tablet 200 mg, 200 mg, Oral, Q6H PRN, Carolina Garibay MD ipratropium-albuterol (DUO-NEB) 0.5-2.5 mg/3 mL nebulizer solution 3 mL, 3 mL, Inhalation, Q 4 hours PRN, Marion Perry MD, 3 mL at 11/02/22 2344 ketoconazole (NIZORAL) 2 % cream, , Topical, Once a day, Shorty Menard DPM, Given at 11/10/22 0906 lidocaine (LIDOCARE) 4 % patch 3 patch, 3 patch, Transdermal, Once a day, Carolina Garibay MD, 3 patch at 11/11/22 1002 lidocaine (XYLOCAINE) 1 % injection 8 mL, 8 mL, Other, Once, Carolina Garibay MD losartan (COZAAR) tablet 25 mg, 25 mg, Oral, Once a day, Valencia Johnson MD, 25 mg at 11/11/22 1018 melatonin tablet 9 mg, 9 mg, Oral, Nightly, Marion Perry MD, 9 mg at 11/10/220 muscle rub (ICY HOT) 10-15 % cream, , Topical, 2 times per day, Carolina Garibay MD, Given at 11/11/22 1007 oxyCODONE (ROXICODONE) immediate release tablet 5 mg, 5 mg, Oral, Q4H PRN, Carolina Garibay MD, 5 mgat 11/11/22 1006 polyethylene glycol (MIRALAX) packet 17 g, 17 g, Oral, BID PRN, Carolina Garibay MD, 17 g at 11/04/22 2159 rosuvastatin (CRESTOR) tablet 40 mg, 40 mg, Oral, Once a day, Marion Perry MD, 40 mg at 11/11/22 1003 simethicone (MYLICON) chewable tablet 80 mg, 80 mg, Oral, 4x Daily PRN, Marion Perry MD, 80 mg at 10/31/22 1818 tamsulosin (FLOMAX) 24 hr capsule 0.4 mg, 0.4 mg, Oral, After Breakfast, Marion Perry MD, 0.4mg at 11/11/22 1004 triamcinolone acetonide (KENALOG-40) injection 40 mg, 40 mg, Intra-articular, Once, Carolina Garibay MD Umeclidinium [place] (INCRUSE ELLIPTA) 62.5 MCG/ACT inhaler 62.5 mcg, 1 puff, Inhalation, RT Daily,Marion Perry MD, 62.5 mcg at 11/11/22 1012 Review of Systems: Review of Systems Constitutional: Positive for fatigue. HENT: Negative for congestion. Eyes: Negative for discharge. Respiratory: Negative for apnea. Cardiovascular: Positive for leg swelling. Gastrointestinal: Negative for abdominal distention. Genitourinary: Negative for difficulty urinating. Musculoskeletal: Positive for arthralgias. Skin: Negative for color change. Neurological: Positive for weakness. Psychiatric/Behavioral: The patient is nervous/anxious. Physical Exam Vitals: 11/11/22 1018 BP: Pulse: 81 Resp: Temp: SpO2: Physical Exam Constitutional: General: He is not in acute distress. HENT: Head: Atraumatic. Eyes: Conjunctiva/sclera: Conjunctivae normal. Cardiovascular: Rate and Rhythm: Normal rate. Pulmonary: Effort: Pulmonary effort is normal. Abdominal: General: There is no distension. Skin: Findings: No erythema. Neurological: Coordination: Coordination abnormal. Neurologic Exam Mental Status Oriented to person. Lab Data Reviewed current lab results available to me today. Lab Results Component Value Date WBC 7.8 11/09/2022 HGB 10.6 (L) 11/09/2022 HCT 33.2 (L) 11/09/2022 MCV 91.2 11/09/2022 PLT 257 11/09/2022 Lab Results Component Value Date GLUCOSE 121 (H) 11/09/2022 CALCIUM 9.1 11/09/2022 NA 142 11/09/2022 K 4.1 11/09/2022 CO2 26 11/09/2022 CL 109 (H) 11/09/2022 BUN 21 11/09/2022 CREATININE 0.97 11/09/2022 ANIONGAP 7 (L) 11/09/2022 Imaging Reviewed current imaging results available to me today. No results found. Assessment & Plan: Esperanza Chaparro is a 67 y.o. male patient with Cerebrovascular accident functional impairment for rehab Cerebrovascular accident L sided hemiplegia ( dense ) Left face droop Dysarthria - on aspirin, Plavix 90 days, statin - gabapentin for neuropathy, 200 mg t.i.d., scheduled Tylenol PT, OT for gait training and ADL training, Nursing for bowel and bladder care. Speech therapy for swallow evaluation and cognitive evaluation. Skin/Wounds: - Skin integrity and Pressure ulcer prevention: frequent repositioning and adequate pressure relief. Maintain clean, dry skin. If needed, q2 hour turns when in bed and regular skin checks, application of protective barrier cream, toileting schedule. Wound RN consult Bowel & Bladder - monitor bowel movement - adjust scheduled and PRN bowel regimen as needed - monitor for adequate urinary output - should suspicion for urinary retention arise, PVR of random bladder scan will be performed for further assessment Continue current medical management. RECOMMENDATIONS At the current time, this inpatient hospital rehabilitation stay is medically necessary to achieve important health and functional goals. The patient requires frequent physician visits, 24-hour rehabilitation nursing, and a coordinated intensive rehabilitation program as described above to address complex medical, nursing, and rehabilitation needs. Continue inpatient comprehensive interdisciplinary rehabilitation to address strengthening, mobility skills, self care, cognitive functioning, speech, communication and swallowing needs. The patient continues to require the interdisciplinary team approach and 24 hour monitoring. DIET: Dietary Orders (From admission, onward) Start Ordered 10/29/22 1700 Nutritional supplement Oral 3 times daily with meals Comments: Send vanilla ensure high protein TID End/Expires: Until Specified Question Answer Comment Administration Route: Oral Place order in third constitution party system. Done 10/29/22 1346 10/28/222 Adult Diet Regular; 6 Soft & Bite-Sized (NDD III); 0 Thin (All Liquids) Diet effective now End/Expires: Until Specified References: IDDSI Website Question Answer Comment Diet Type: Regular Diet Texture: 6 Soft & Bite-Sized (NDD III) Liquid Consistency: 0 Thin (All Liquids) Place order in third constitution party system. 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 On modified diet IVF dced on 11/06 # Gout : Stable On PRN Ibuprofen # DMII On oral meds # HTN - continue amlodipine and losartan #CAD s/p PCI - continue ASA, statin # COPD - home inhalers, duonebs prn # Pain: Oxy and Lidoderm Left hip XR on 11/06 Mild symmetric degenerative change the hip joints are present with minimal joint space narrowing. [facility]: [facility] vs [facility] GARIB[facility] MD * Marion Perry MD - 11/10/2022 8:40 AM CDT HOSPITALIST PROGRESS NOTE Patient Name: Esperanza Chaparro : 1955 Medical Record: [id number] ATTENDING Carolina Garibay MD SUBJECTIVE 10/30 The patient is being seen for follow-up of Cerebrovascular accident. BP, BS , HR, labs, strength. .Chief Complaint Renal 42/1.5 Hr 50s BP low DC norvasc Decrease dose of coreg and cozaar strength improving, able to do therapy ok. No chest pain, no SOB, no dizziness, no palpitations, no new neurologic symptoms. No cough, No nausea or vomiting, No abdominal pain. History also obtained from Nurse and staff about how the patient did overnight and during the day strength improving, able to do therapy ok. Brief 10/31: Patient seen and examined this morning. Patient complaining of uncontrolled pain. Follow up with PM&R for further recommendations. Continue current medical management. 11/01: Patient seen and examined this afternoon. Patient continues to complain of uncontrolled pain.Follow up with PM&R for further recommendations. Have placed orders for Flexeril 5 mg TID PRN. Continue current medical management. 11/02: Patient seen and examined this morning. Patient complaining of uncontrolled pain. Follow up with PM&R for further recommendations. Patient has been having great toe pain. Possibly patient has gout. Follow up uric acid. Follow up Podiatry further recommendations regarding foot care. Continue current medical management. 11/03:Patient seen and examined this morning. Vitals and labs reviewed. Resting comfortably. No acute events overnight. Continue current medical management. 11/04 BP up once No complaints Doing better in therapy 11/05 No events reported Vitals/labs reviewed Participating with therapy 11/06 The patient was seen in the room this afternoon. The patient currently does not report any chest pain, shortness present nausea or vomiting No reported issues from the floor nurse. The most recent labs and vital signs were reviewed. 11/07 Patient seen and examined Doing fine No new issues to report Labs/vitals reviewed 11/08 Patient seen and examined Doing fine No new issues to report Labs/vitals reviewed 11/09 Patient seen and examined Doing ok No new issues to report Vitals reviewed Labs unremarkable 11/10 Patient seen and examined Doing alright No new issues to report Vitals reviewed istory Patient is a 67-year-old male with past medical history of CAD, COPD, hypertension, diabetes, sleepapnea, colon cancer status post colectomy who was [facility] with new neurologicaldeficits. Imaging confirmed acute on chronic right MCA and SHEA stroke. Patient did receive tPA in the ER. Patient was admitted to the neuro ICU. Patient's clinical condition stabilized. Patient was kept on aspirin Plavix for 90 days. Patient was started on statin. Patient is on Jardiance. Secondarystroke workup was completed. Patient also did complete a course of Unasyn for peritonsillar abscess. Patient worked with physical therapy and occupational therapy. Acute inpatient rehab was recommende d. HOME Medications Prior to Admission medications Medication Sig Start Date End Date Taking? Authorizing Provider Brinzolamide-Brimonidine 1-0.2 % suspension Administer 1 drop into both eyes 3 (three) times a day.Yes Historical Provider, budesonide-formoterol (SYMBICORT) 160-4.5 MCG/ACT inhaler Inhale 2 puffs RT 2 (two) times a day. Yes Historical Provider, cabergoline (DOSTINEX) 0.5 MG tablet Take 0.5 tablets (0.25 mg total) by mouth 2 (two) times a week. Yes Historical Provider, carboxymethylcellulose (Carboxymethylcellulose Sodium) solution Apply 1 drop (0.05 mL total) to both eyes 4 (four) times a day as needed for dry eyes. Yes Historical Provider, ergocalciferol (vitamin D2, Ergocalciferol,) 1.25 MG (12768 UT) capsule Take 1 capsule (50,000 Units total) by mouth once a week. Yes Historical Provider, melatonin tablet Take 8 tablets (8 mg total) by mouth nightly. Yes Historical Provider, Tiotropium [place] Monohydrate (Spiriva Respimat) 2.5 MCG/ACT aerosol solution Inhale 2 puffs (5 mcg total) RT Daily. Yes Historical Provider, CURRENT Medications Current Facility-Administered Medications: acetaminophen (TYLENOL) tablet 650 mg, 650 mg, Oral, Q8H BERNARDO, Marion Perry MD, 650 mg at 11/10/22 0634 aspirin EC tablet 81 mg, 81 mg, Oral, Once a day, Marion Perry MD, 81 mg at 11/09/22 1011 bismuth subsalicylate (PEPTO BISMOL) 262 MG/15ML suspension 30 mL, 30 mL, Oral, Q6H PRN, Marion Perry MD, 30 mL at 11/05/22 2127 brimonidine (ALPHAGAN) 0.2 % ophthalmic solution 1 drop, 1 drop, Both Eyes, 3 times per day, Urban Perry MD, 1 drop at 11/09/22 2042 calcium carbonate (TUMS) chewable tablet 1,000 mg, 1,000 mg, Oral, Q2H PRN, Marion Perry MD, 1,000 mg at 11/01/22 1313 carvedilol (COREG) tablet 3.125 mg, 3.125 mg, Oral, 2 times per day, Raul Vo MD, 3.125 mg at11/09/22 1642 nicotine (NICODERM CQ) patch 21 mg, 21 mg, Transdermal, Once a day, 21 mg at 11/09/22 1014 AND Check Patch Placement, , Transdermal, 2 times per day, Marion Perry MD, Check Patch Placement at 11/09/222042 cholecalciferol (VITAMIN D3) capsule 50,000 Units, 50,000 Units, Oral, Weekly, Soto Meng MD, 50,000 Units at 11/06/22 0924 clopidogrel (PLAVIX) tablet 75 mg, 75 mg, Oral, Once a day, Marion Perry MD, 75 mg at 11/09/22 1008 cyclobenzaprine (FLEXERIL) tablet 5 mg, 5 mg, Oral, TID PRN, Raul Vo MD, 5 mg at 11/04/22 2155 dextrose (GLUTOSE) 40 % oral gel 15 g, 15 g, Oral, PRN, Marion Perry MD dextrose 50 % IV solution 12.5 g, 12.5 g, Intravenous, PRN OR dextrose 50 % IV solution 25 g, 25 g, Intravenous, PRN, Marion Perry MD Fluticasone-Salmeterol (AIRDUO RESPICLICK) 232-14 MCG/ACT inhaler 1 puff, 1 puff, Inhalation, RT BID, Marion Perry MD, 1 puff at 11/09/22 204 gabapentin (NEURONTIN) capsule 200 mg, 200 mg, Oral, 3 times per day, Marion Perry MD, 200 mgat 11/09/22 204 glipiZIDE (GLUCOTROL) tablet 5 mg, 5 mg, Oral, Once a day, Soto Meng MD, 5 mg at 11/09/22 1011 glucagon injection reconstituted solution 1 mg, 1 mg, Intramuscular, PRN, Marion Perry MD hemorrhoidal ointment, , Apply externally, TID PRN, Marion Perry MD, Given at 11/09/22 0104 heparin (porcine) injection 5,000 Units, 5,000 Units, Subcutaneous, Q8H BERNARDO, Marion Perry MD,5,000 Units at 11/10/22 0636 ibuprofen (MOTRIN) tablet 200 mg, 200 mg, Oral, Q6H PRN, Carolina Garibay MD ipratropium-albuterol (DUO-NEB) 0.5-2.5 mg/3 mL nebulizer solution 3 mL, 3 mL, Inhalation, Q 4 hours PRN, Marion Perry MD, 3 mL at 11/02/22 2344 ketoconazole (NIZORAL) 2 % cream, , Topical, Once a day, Shorty Menard DPM, Given at 11/08/22 0953 lidocaine (LIDOCARE) 4 % patch 3 patch, 3 patch, Transdermal, Once a day, Carolina Garibay MD, 3 patch at 11/09/22 1007 lidocaine (XYLOCAINE) 1 % injection 8 mL, 8 mL, Other, Once, Carolina Garibay MD losartan (COZAAR) tablet 25 mg, 25 mg, Oral, Once a day, Valencia Johnson MD, 25 mg at 11/09/22 1010 melatonin tablet 9 mg, 9 mg, Oral, Nightly, Marion Perry MD, 9 mg at 11/09/222040 muscle rub (ICY HOT) 10-15 % cream, , Topical, 2 times per day, Carolina Garibay MD oxyCODONE (ROXICODONE) immediate release tablet 5 mg, 5 mg, Oral, Q4H PRN, Carolina Garibay MD, 5 mgat 11/09/22 1019 polyethylene glycol (MIRALAX) packet 17 g, 17 g, Oral, BID PRN, Carolina Garibay MD, 17 g at 11/04/22 2159 rosuvastatin (CRESTOR) tablet 40 mg, 40 mg, Oral, Once a day, Marion Perry MD, 40 mg at 11/09/22 1009 simethicone (MYLICON) chewable tablet 80 mg, 80 mg, Oral, 4x Daily PRN, Marion Perry MD, 80 mg at 10/31/22 1818 tamsulosin (FLOMAX) 24 hr capsule 0.4 mg, 0.4 mg, Oral, After Breakfast, Marion Perry MD, 0.4mg at 11/09/22 1011 triamcinolone acetonide (KENALOG-40) injection 40 mg, 40 mg, Intra-articular, Once, Carolina Garibay MD Umeclidinium [place] (INCRUSE ELLIPTA) 62.5 MCG/ACT inhaler 62.5 mcg, 1 puff, Inhalation, RT Daily,Marion Perry MD, 62.5 mcg at 11/09/22 1005 DATA Vitals: 11/08/22 2005 11/09/22 0725 11/09/22 1920 11/10/22 0705 BP: 147/66 148/74 (!) 176/82 (!) 166/84 Pulse: 55 59 56 52 Resp: Temp: 97.6 ??F (36.4 ??C) 97.9 ??F (36.6 ??C) 98.2 ??F (36.8 ??C) 97.6 ??F (36.4 ??C) TempSrc: Oral Oral Oral Oral SpO2: 96% 95% 98% 98% Weight: Height: POC Glucose POC Glucose 11/10/22 0624 129 11/09/222023 148 11/09/22 1619 126 Weights (last 3 days) Date/Time Weight 11/07/22 2311 225 lb (102.1 kg) @ANTICOAGSUMMARY@ @FLOWDATE(2706:LAST)@ Intake/Output Summary (Last 24 hours) at 11/10/2022 0841 Last data filed at 11/09/2022 2101 Gross per 24 hour Intake 900 ml Output 300 ml Net 600 ml PHYSICAL EXAM General appearance: awake, alert, cooperative, no distress HEENT: Normocephalic, No icterus, No oral lesions, Oral and nasal mucosa moist Neck: Supple, no lymphadenopathy Eyes: EOMI, Conjunctiva normal, No discharge Cardiovascular: Normal heart rate, Normal rhythm, No murmurs, No rubs, No gallops Respiratory: Normal breath sounds, No respiratory distress, No wheezing, No rhonchi, No rales, No chest tenderness. GI: Bowel sounds normal, Soft, No tenderness, No rebound or guarding, No masses. Abdomen: soft without mass, non-tender, with normal bowel sounds Extremities: no clubbing, cyanosis or edema, no calf tenderness Musculoskeletal:no swelling of joints.no redness Psychologic: Mood ok, no suicidal ideation. 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 LABS CBC with Differential: Lab Results Component Value Date WBC 7.8 11/09/2022 HGB 10.6 (L) 11/09/2022 HCT 33.2 (L) 11/09/2022 PLT 257 11/09/2022 MCV 91.2 11/09/2022 MCH 29.1 11/09/2022 MCHC 31.9 11/09/2022 RDW 13.8 11/09/2022 [ BMP: Lab Results Component Value Date NA 142 11/09/2022 K 4.1 11/09/2022 CL 109 (H) 11/09/2022 CO2 26 11/09/2022 BUN 21 11/09/2022 CREATININE 0.97 11/09/2022 GLUCOSE 121 (H) 11/09/2022 CALCIUM 9.1 11/09/2022 ANIONGAP 7 (L) 11/09/2022 MG/PHOS: No results found for: MG, PHOS CKMB: No components found for: CKMB;2 PT/INR: No results found for: LABPROT, INR BNP: No results found for: BNP Last 3 Troponin: No components found for: TROPONINI;3 U/A: No results found for: COLORU, CLARITYU, GLUCOSEU, BILIRUBINUR, KETONESU, SPECGRAV, BLOODU, PHUR, UROBILINOGEN, NITRITE, LEUKOCYTESUR, MUCUS, RBCUA, WBCUA CMP: Lab Results Component Value Date NA 142 11/09/2022 K 4.1 11/09/2022 CL 109 (H) 11/09/2022 CO2 26 11/09/2022 BUN 21 11/09/2022 CREATININE 0.97 11/09/2022 GLUCOSE 121 (H) 11/09/2022 CALCIUM 9.1 11/09/2022 ANIONGAP 7 (L) 11/09/2022 LFT's: No results found for: ALB, PROT Ionized Calcium: No components found for: IONCA ABG: No results found for: PHART, [id number], PO2ART, [id number], BEART, [id number] HgBA1c: No results found for: HGBA1C Lipid Panel: No results found for: CHOL, TRIG, HDL TSH: No results found for: TSH Lab Results Component Value Date GLUCOSE 121 (H) 11/09/2022 BUN 21 11/09/2022 CREATININE 0.97 11/09/2022 NA 142 11/09/2022 K 4.1 11/09/2022 CL 109 (H) 11/09/2022 CO2 26 11/09/2022 CALCIUM 9.1 11/09/2022 @RESU CBC: Recent Labs Lab Units 11/09/22 0416 WBC X(10)9/L BLOOD x10E9/L 7.8 HGB GM/DL BLOOD gm/dL 10.6* PLT CT X(10)9/L BLOOD x10E9/L 257 MCV FL BLOOD fl 91.2 BMP: Recent Labs Lab Units 11/09/22 0416 SODIUM MMOL/L BLOOD mmol/L 142 POTASSIUM MMOL/L BLOOD mmol/L 4.1 CHLORIDE mmol/L 109* CO2 mmol/L 26 BUN MG/DL BLOOD mg/dL 21 CREATININE mg/dL 0.97 GLUCOSE MG/DL BLOOD mg/dL 121* CALCIUM MG/DL BLOOD mg/dL 9.1 I reviewed the EKG tracing/Xray Recent Labs Lab Units 11/09/22 0416 SODIUM MMOL/L BLOOD mmol/L 142 POTASSIUM MMOL/L BLOOD mmol/L 4.1 CHLORIDE mmol/L 109* CO2 mmol/L 26 BUN MG/DL BLOOD mg/dL 21 CREATININE mg/dL 0.97 GLUCOSE MG/DL BLOOD mg/dL 121* CALCIUM MG/DL BLOOD mg/dL 9.1 ANION GAP BLOOD mmol/L 7* ASSESSMENT AND PLAN Principal Problem: Cerebrovascular accident Active Problems: Dysphagia Acute CVA Patient found to have a right acute on chronic MCA stroke and a SHEA ischemic stroke Patient received tPA in the ER Patient was admitted to the neuro ICU Patient was started on aspirin and Plavix Secondary stroke workup was completed Patient will be on 90 days of aspirin Plavix, end date 01/18/2023 Continue physical therapy Continue occupational therapy Physical medicine physician to oversee overall rehab program Hypertension Continue amlodipine 10 mg daily Bp low- dc norvasc DC IVF Bradycardia Decrease dose of coreg Mild renal insufficiency JUST finished IVF Inc po fluids F/U labs CAD Continue aspirin, coreg, plavix COPD Continue airduo Dysphagia Speech therapy DVT prophylaxis Continue heparin Code status Full code D/W patient , and attending physician about test results and treatment plan .No family in the room.Patient requiring monitoring of BP and HR while doing 3 hour intensive exercises to avoid fluctuations and hypotension . Aswell as monitoring of nutritional and fluid status , by weights, leg edema .Notified staff and patient to notify me of any change inconditions or new problems * Marion Perry MD - 11/09/2022 12:06 PM CDT HOSPITALIST PROGRESS NOTE Patient Name: Esperanza Chaparro : 1955 Medical Record: [id number] ATTENDING Carolina Garibay MD SUBJECTIVE 10/30 The patient is being seen for follow-up of Cerebrovascular accident. BP, BS , HR, labs, strength. .Chief Complaint Renal 42/1.5 Hr 50s BP low DC norvasc Decrease dose of coreg and cozaar strength improving, able to do therapy ok. No chest pain, no SOB, no dizziness, no palpitations, no new neurologic symptoms. No cough, No nausea or vomiting, No abdominal pain. History also obtained from Nurse and staff about how the patient did overnight and during the day strength improving, able to do therapy ok. Brief 10/31: Patient seen and examined this morning. Patient complaining of uncontrolled pain. Follow up with PM&R for further recommendations. Continue current medical management. 11/01: Patient seen and examined this afternoon. Patient continues to complain of uncontrolled pain.Follow up with PM&R for further recommendations. Have placed orders for Flexeril 5 mg TID PRN. Continue current medical management. 11/02: Patient seen and examined this morning. Patient complaining of uncontrolled pain. Follow up with PM&R for further recommendations. Patient has been having great toe pain. Possibly patient has gout. Follow up uric acid. Follow up Podiatry further recommendations regarding foot care. Continue current medical management. 11/03:Patient seen and examined this morning. Vitals and labs reviewed. Resting comfortably. No acute events overnight. Continue current medical management. 11/04 BP up once No complaints Doing better in therapy 11/05 No events reported Vitals/labs reviewed Participating with therapy 11/06 The patient was seen in the room this afternoon. The patient currently does not report any chest pain, shortness present nausea or vomiting No reported issues from the floor nurse. The most recent labs and vital signs were reviewed. 11/07 Patient seen and examined Doing fine No new issues to report Labs/vitals reviewed 11/08 Patient seen and examined Doing fine No new issues to report Labs/vitals reviewed 11/09 Patient seen and examined Doing ok No new issues to report Vitals reviewed Labs unremarkable istory Patient is a 67-year-old male with past medical history of CAD, COPD, hypertension, diabetes, sleepapnea, colon cancer status post colectomy who was transferred to [facility] with new neurologicaldeficits. Imaging confirmed acute on chronic right MCA and SHEA stroke. Patient did receive tPA in the ER. Patient was admitted to the neuro ICU. Patient's clinical condition stabilized. Patient was kept on aspirin Plavix for 90 days. Patient was started on statin. Patient is on Jardiance. Secondarystroke workup was completed. Patient also did complete a course of Unasyn for peritonsillar abscess. Patient worked with physical therapy and occupational therapy. Acute inpatient rehab was recommende d. HOME Medications Prior to Admission medications Medication Sig Start Date End Date Taking? Authorizing Provider Brinzolamide-Brimonidine 1-0.2 % suspension Administer 1 drop into both eyes 3 (three) times a day.Yes Historical Provider, budesonide-formoterol (SYMBICORT) 160-4.5 MCG/ACT inhaler Inhale 2 puffs RT 2 (two) times a day. Yes Historical Provider, cabergoline (DOSTINEX) 0.5 MG tablet Take 0.5 tablets (0.25 mg total) by mouth 2 (two) times a week. Yes Historical Provider, carboxymethylcellulose (Carboxymethylcellulose Sodium) solution Apply 1 drop (0.05 mL total) to both eyes 4 (four) times a day as needed for dry eyes. Yes Historical Provider, ergocalciferol (vitamin D2, Ergocalciferol,) 1.25 MG (06051 UT) capsule Take 1 capsule (50,000 Units total) by mouth once a week. Yes Historical Provider, melatonin tablet Take 8 tablets (8 mg total) by mouth nightly. Yes Historical Provider, Tiotropium [place] Monohydrate (Spiriva Respimat) 2.5 MCG/ACT aerosol solution Inhale 2 puffs (5 mcg total) RT Daily. Yes Historical Provider, CURRENT Medications Current Facility-Administered Medications: acetaminophen (TYLENOL) tablet 650 mg, 650 mg, Oral, Q8H BERNARDO, Marion Perry MD, 650 mg at 11/09/22 0541 aspirin EC tablet 81 mg, 81 mg, Oral, Once a day, Marion Perry MD, 81 mg at 11/09/22 1011 bismuth subsalicylate (PEPTO BISMOL) 262 MG/15ML suspension 30 mL, 30 mL, Oral, Q6H PRN, Marion Perry MD, 30 mL at 11/05/22 2127 brimonidine (ALPHAGAN) 0.2 % ophthalmic solution 1 drop, 1 drop, Both Eyes, 3 times per day, Urban Perry MD, 1 drop at 11/09/22 1004 calcium carbonate (TUMS) chewable tablet 1,000 mg, 1,000 mg, Oral, Q2H PRN, Marion Perry MD, 1,000 mg at 11/01/22 1313 carvedilol (COREG) tablet 3.125 mg, 3.125 mg, Oral, 2 times per day, Raul Vo MD, 3.125 mg at11/09/22 1008 nicotine (NICODERM CQ) patch 21 mg, 21 mg, Transdermal, Once a day, 21 mg at 11/09/22 1014 AND Check Patch Placement, , Transdermal, 2 times per day, Marion Perry MD, Check Patch Placement at 11/09/22 1014 cholecalciferol (VITAMIN D3) capsule 50,000 Units, 50,000 Units, Oral, Weekly, Soto Meng MD, 50,000 Units at 11/06/22 0924 clopidogrel (PLAVIX) tablet 75 mg, 75 mg, Oral, Once a day, Marion Perry MD, 75 mg at 11/09/22 1008 cyclobenzaprine (FLEXERIL) tablet 5 mg, 5 mg, Oral, TID PRN, Raul Vo MD, 5 mg at 11/04/22 2155 dextrose (GLUTOSE) 40 % oral gel 15 g, 15 g, Oral, PRN, Marion Perry MD dextrose 50 % IV solution 12.5 g, 12.5 g, Intravenous, PRN OR dextrose 50 % IV solution 25 g, 25 g, Intravenous, PRN, Marion Perry MD Fluticasone-Salmeterol (AIRDUO RESPICLICK) 232-14 MCG/ACT inhaler 1 puff, 1 puff, Inhalation, RT BID, Marion Perry MD, 1 puff at 11/09/22 1004 gabapentin (NEURONTIN) capsule 200 mg, 200 mg, Oral, 3 times per day, Marion Perry MD, 200 mgat 11/09/22 1010 glipiZIDE (GLUCOTROL) tablet 5 mg, 5 mg, Oral, Once a day, Soto Meng MD, 5 mg at 11/09/22 1011 glucagon injection reconstituted solution 1 mg, 1 mg, Intramuscular, PRN, Marion Perry MD hemorrhoidal ointment, , Apply externally, TID PRN, Marion Perry MD, Given at 11/09/22 0104 heparin (porcine) injection 5,000 Units, 5,000 Units, Subcutaneous, Q8H BERNARDO, Marion Perry MD,5,000 Units at 11/09/22 0542 ibuprofen (MOTRIN) tablet 200 mg, 200 mg, Oral, Q6H PRN, Carolina Garibay MD ipratropium-albuterol (DUO-NEB) 0.5-2.5 mg/3 mL nebulizer solution 3 mL, 3 mL, Inhalation, Q 4 hours PRN, Marion Perry MD, 3 mL at 11/02/22 2344 ketoconazole (NIZORAL) 2 % cream, , Topical, Once a day, Shorty Menard DPM, Given at 11/08/22 0953 lidocaine (LIDOCARE) 4 % patch 3 patch, 3 patch, Transdermal, Once a day, Carolina Garibay MD, 3 patch at 11/09/22 1007 lidocaine (XYLOCAINE) 1 % injection 8 mL, 8 mL, Other, Once, Carolina Garibay MD losartan (COZAAR) tablet 25 mg, 25 mg, Oral, Once a day, Valencia Johnson MD, 25 mg at 11/09/22 1010 melatonin tablet 9 mg, 9 mg, Oral, Nightly, Marion Perry MD, 9 mg at 11/08/22 214 muscle rub (ICY HOT) 10-15 % cream, , Topical, 2 times per day, Carolina Garibay MD oxyCODONE (ROXICODONE) immediate release tablet 5 mg, 5 mg, Oral, Q4H PRN, Carolina Garibay MD, 5 mgat 11/09/22 1019 polyethylene glycol (MIRALAX) packet 17 g, 17 g, Oral, BID PRN, Carolina Garibay MD, 17 g at 11/04/22 215 rosuvastatin (CRESTOR) tablet 40 mg, 40 mg, Oral, Once a day, Marion Perry MD, 40 mg at 11/09/22 1009 simethicone (MYLICON) chewable tablet 80 mg, 80 mg, Oral, 4x Daily PRN, Marion Perry MD, 80 mg at 10/31/22 1818 tamsulosin (FLOMAX) 24 hr capsule 0.4 mg, 0.4 mg, Oral, After Breakfast, Marion Perry MD, 0.4mg at 11/09/22 1011 triamcinolone acetonide (KENALOG-40) injection 40 mg, 40 mg, Intra-articular, Once, Carolina Garibay MD Umeclidinium [place] (INCRUSE ELLIPTA) 62.5 MCG/ACT inhaler 62.5 mcg, 1 puff, Inhalation, RT Daily,Marion Perry MD, 62.5 mcg at 11/09/22 1005 DATA Vitals: 11/08/22 0756 11/08/22 1754 11/08/22200411/09/22724 BP: 109/65 108/62 147/66 148/74 Pulse: 55 56 55 59 Resp: Temp: 97.7 ??F (36.5 ??C) 97.6 ??F (36.4 ??C) 97.9 ??F (36.6 ??C) TempSrc: Oral Oral Oral SpO2: 93% 96% 95% Weight: Height: POC Glucose POC Glucose 11/09/22 0525 116 11/08/22 1608 173 Weights (last 3 days) Date/Time Weight 11/07/22 2311 225 lb (102.1 kg) @ANTICOAGSUMMARY@ @FLOWDATE(2706:LAST)@ Intake/Output Summary (Last 24 hours) at 11/09/2022 1206 Last data filed at 11/09/2022 0908 Gross per 24 hour Intake 1080 ml Output -- Net 1080 ml PHYSICAL EXAM General appearance: awake, alert, cooperative, no distress HEENT: Normocephalic, No icterus, No oral lesions, Oral and nasal mucosa moist Neck: Supple, no lymphadenopathy Eyes: EOMI, Conjunctiva normal, No discharge Cardiovascular: Normal heart rate, Normal rhythm, No murmurs, No rubs, No gallops Respiratory: Normal breath sounds, No respiratory distress, No wheezing, No rhonchi, No rales, No chest tenderness. GI: Bowel sounds normal, Soft, No tenderness, No rebound or guarding, No masses. Abdomen: soft without mass, non-tender, with normal bowel sounds Extremities: no clubbing, cyanosis or edema, no calf tenderness Musculoskeletal:no swelling of joints.no redness Psychologic: Mood ok, no suicidal ideation. 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 LABS CBC with Differential: Lab Results Component Value Date WBC 7.8 11/09/2022 HGB 10.6 (L) 11/09/2022 HCT 33.2 (L) 11/09/2022 PLT 257 11/09/2022 MCV 91.2 11/09/2022 MCH 29.1 11/09/2022 MCHC 31.9 11/09/2022 RDW 13.8 11/09/2022 [ BMP: Lab Results Component Value Date NA 142 11/09/2022 K 4.1 11/09/2022 CL 109 (H) 11/09/2022 CO2 26 11/09/2022 BUN 21 11/09/2022 CREATININE 0.97 11/09/2022 GLUCOSE 121 (H) 11/09/2022 CALCIUM 9.1 11/09/2022 ANIONGAP 7 (L) 11/09/2022 MG/PHOS: No results found for: MG, PHOS CKMB: No components found for: CKMB;2 PT/INR: No results found for: LABPROT, INR BNP: No results found for: BNP Last 3 Troponin: No components found for: TROPONINI;3 U/A: No results found for: COLORU, CLARITYU, GLUCOSEU, BILIRUBINUR, KETONESU, SPECGRAV, BLOODU, PHUR, UROBILINOGEN, NITRITE, LEUKOCYTESUR, MUCUS, RBCUA, WBCUA CMP: Lab Results Component Value Date NA 142 11/09/2022 K 4.1 11/09/2022 CL 109 (H) 11/09/2022 CO2 26 11/09/2022 BUN 21 11/09/2022 CREATININE 0.97 11/09/2022 GLUCOSE 121 (H) 11/09/2022 CALCIUM 9.1 11/09/2022 ANIONGAP 7 (L) 11/09/2022 LFT's: No results found for: ALB, PROT Ionized Calcium: No components found for: IONCA ABG: No results found for: PHART, BFW5HLG, PO2ART, WZF8ESV, BEART, [id number] HgBA1c: No results found for: HGBA1C Lipid Panel: No results found for: CHOL, TRIG, HDL TSH: No results found for: TSH Lab Results Component Value Date GLUCOSE 121 (H) 11/09/2022 BUN 21 11/09/2022 CREATININE 0.97 11/09/2022 NA 142 11/09/2022 K 4.1 11/09/2022 CL 109 (H) 11/09/2022 CO2 26 11/09/2022 CALCIUM 9.1 11/09/2022 @RESU CBC: Recent Labs Lab Units 11/09/22 0416 WBC X(10)9/L BLOOD x10E9/L 7.8 HGB GM/DL BLOOD gm/dL 10.6* PLT CT X(10)9/L BLOOD x10E9/L 257 MCV FL BLOOD fl 91.2 BMP: Recent Labs Lab Units 11/09/22 0416 SODIUM MMOL/L BLOOD mmol/L 142 POTASSIUM MMOL/L BLOOD mmol/L 4.1 CHLORIDE mmol/L 109* CO2 mmol/L 26 BUN MG/DL BLOOD mg/dL 21 CREATININE mg/dL 0.97 GLUCOSE MG/DL BLOOD mg/dL 121* CALCIUM MG/DL BLOOD mg/dL 9.1 I reviewed the EKG tracing/Xray Recent Labs Lab Units 11/09/22 0416 SODIUM MMOL/L BLOOD mmol/L 142 POTASSIUM MMOL/L BLOOD mmol/L 4.1 CHLORIDE mmol/L 109* CO2 mmol/L 26 BUN MG/DL BLOOD mg/dL 21 CREATININE mg/dL 0.97 GLUCOSE MG/DL BLOOD mg/dL 121* CALCIUM MG/DL BLOOD mg/dL 9.1 ANION GAP BLOOD mmol/L 7* ASSESSMENT AND PLAN Principal Problem: Cerebrovascular accident Active Problems: Dysphagia Acute CVA Patient found to have a right acute on chronic MCA stroke and a SHEA ischemic stroke Patient received tPA in the ER Patient was admitted to the neuro ICU Patient was started on aspirin and Plavix Secondary stroke workup was completed Patient will be on 90 days of aspirin Plavix, end date 01/18/2023 Continue physical therapy Continue occupational therapy Physical medicine physician to oversee overall rehab program Hypertension Continue amlodipine 10 mg daily Bp low- dc norvasc DC IVF Bradycardia Decrease dose of coreg Mild renal insufficiency JUST finished IVF Inc po fluids F/U labs CAD Continue aspirin, coreg, plavix COPD Continue airduo Dysphagia Speech therapy DVT prophylaxis Continue heparin Code status Full code D/W patient , and attending physician about test results and treatment plan .No family in the room.Patient requiring monitoring of BP and HR while doing 3 hour intensive exercises to avoid fluctuations and hypotension . Aswell as monitoring of nutritional and fluid status , by weights, leg edema .Notified staff and patient to notify me of any change inconditions or new problems * Carolina Garibay MD - 11/09/2022 10:40 AM CDT PM&R PROGRESS NOTE This is Face to Face Visit note Esperanza Chaparro is a 67 y.o. male patient. Doing better this AM , no SOB with activity, pain in hip REVIEW OF FUNCTIONAL STATUS SM Functional Status PT Data (since 11/06/2022) None SM Functional Status OT Data (since 11/06/2022) None ORAL HYGIENE: supervision and cues for thoroughness TOILETING: dependent, bed level for safety BATHING: max assist for sponge bathing, bed level; pt is able to assist with washing face and chest; assist needed for all other bathing tasks UB DRESSING: max assist; pt is able to assist with doffing shirt from L arm and for pulling shirt down over trunk; assist needed for all other aspects LB DRESSING: dependent, bed level for safety PUTTING ON/TAKING OFF FOOTWEAR: dependent, assist needed for all aspects ROLL LEFT AND RIGHT: dependent SIT TO LYING: dependent LYING TO SITTING: dependent SIT TO STAND: dependent Patient Active Problem List Diagnosis Cerebrovascular accident Chronic obstructive pulmonary disease Coronary arteriosclerosis Primary hypertension Dysphagia Past Medical History: Diagnosis Date Cancer Heart disease Stroke Current Facility-Administered Medications: acetaminophen (TYLENOL) tablet 650 mg, 650 mg, Oral, Q8H BERNARDO, Marion Perry MD, 650 mg at 11/09/22 0541 aspirin EC tablet 81 mg, 81 mg, Oral, Once a day, Marion Perry MD, 81 mg at 11/09/22 1011 bismuth subsalicylate (PEPTO BISMOL) 262 MG/15ML suspension 30 mL, 30 mL, Oral, Q6H PRN, Marion Perry MD, 30 mL at 11/05/22 2127 brimonidine (ALPHAGAN) 0.2 % ophthalmic solution 1 drop, 1 drop, Both Eyes, 3 times per day, Urban Perry MD, 1 drop at 11/09/22 1004 calcium carbonate (TUMS) chewable tablet 1,000 mg, 1,000 mg, Oral, Q2H PRN, Marion Perry MD, 1,000 mg at 11/01/22 1313 carvedilol (COREG) tablet 3.125 mg, 3.125 mg, Oral, 2 times per day, Raul Vo MD, 3.125 mg at11/09/22 1008 nicotine (NICODERM CQ) patch 21 mg, 21 mg, Transdermal, Once a day, 21 mg at 11/09/22 1014 AND Check Patch Placement, , Transdermal, 2 times per day, Marion Perry MD, Check Patch Placement at 11/09/22 1014 cholecalciferol (VITAMIN D3) capsule 50,000 Units, 50,000 Units, Oral, Weekly, Soto Meng MD, 50,000 Units at 11/06/22 0924 clopidogrel (PLAVIX) tablet 75 mg, 75 mg, Oral, Once a day, Marion Perry MD, 75 mg at 11/09/22 1008 cyclobenzaprine (FLEXERIL) tablet 5 mg, 5 mg, Oral, TID PRN, Raul Vo MD, 5 mg at 11/04/22 2155 dextrose (GLUTOSE) 40 % oral gel 15 g, 15 g, Oral, PRN, Marion Perry MD dextrose 50 % IV solution 12.5 g, 12.5 g, Intravenous, PRN OR dextrose 50 % IV solution 25 g, 25 g, Intravenous, PRN, Marion Perry MD Fluticasone-Salmeterol (AIRDUO RESPICLICK) 232-14 MCG/ACT inhaler 1 puff, 1 puff, Inhalation, RT BID, Marion Perry MD, 1 puff at 11/09/22 1004 gabapentin (NEURONTIN) capsule 200 mg, 200 mg, Oral, 3 times per day, Marion Perry MD, 200 mgat 11/09/22 1010 glipiZIDE (GLUCOTROL) tablet 5 mg, 5 mg, Oral, Once a day, Soto Meng MD, 5 mg at 11/09/22 1011 glucagon injection reconstituted solution 1 mg, 1 mg, Intramuscular, PRN, Marion Perry MD hemorrhoidal ointment, , Apply externally, TID PRN, Marion Perry MD, Given at 11/09/22 0104 heparin (porcine) injection 5,000 Units, 5,000 Units, Subcutaneous, Q8H BERNARDO, Marion Perry MD,5,000 Units at 11/09/22 0542 ibuprofen (MOTRIN) tablet 200 mg, 200 mg, Oral, Q6H PRN, Carolina Garibay MD ipratropium-albuterol (DUO-NEB) 0.5-2.5 mg/3 mL nebulizer solution 3 mL, 3 mL, Inhalation, Q 4 hours PRN, Marion Perry MD, 3 mL at 11/02/22 2344 ketoconazole (NIZORAL) 2 % cream, , Topical, Once a day, Shorty Menard DPM, Given at 11/08/22 0953 lidocaine (LIDOCARE) 4 % patch 3 patch, 3 patch, Transdermal, Once a day, Carolina Garibay MD, 3 patch at 11/09/22 1007 lidocaine (XYLOCAINE) 1 % injection 8 mL, 8 mL, Other, Once, Carolina Garibay MD losartan (COZAAR) tablet 25 mg, 25 mg, Oral, Once a day, Valencia Johnson MD, 25 mg at 11/09/22 1010 melatonin tablet 9 mg, 9 mg, Oral, Nightly, Marion Perry MD, 9 mg at 11/08/22 2149 oxyCODONE (ROXICODONE) immediate release tablet 5 mg, 5 mg, Oral, Q4H PRN, Carolina Garibay MD, 5 mgat 11/09/22 1019 polyethylene glycol (MIRALAX) packet 17 g, 17 g, Oral, BID PRN, Carolina Garibay MD, 17 g at 11/04/22 2159 rosuvastatin (CRESTOR) tablet 40 mg, 40 mg, Oral, Once a day, Marion Perry MD, 40 mg at 11/09/22 1009 simethicone (MYLICON) chewable tablet 80 mg, 80 mg, Oral, 4x Daily PRN, Marion Perry MD, 80 mg at 10/31/22 1818 tamsulosin (FLOMAX) 24 hr capsule 0.4 mg, 0.4 mg, Oral, After Breakfast, Marion Perry MD, 0.4mg at 11/09/22 1011 triamcinolone acetonide (KENALOG-40) injection 40 mg, 40 mg, Intra-articular, Once, Carolina Garibay MD Umeclidinium [place] (INCRUSE ELLIPTA) 62.5 MCG/ACT inhaler 62.5 mcg, 1 puff, Inhalation, RT Daily,Marion Perry MD, 62.5 mcg at 11/09/22 1005 Review of Systems: Review of Systems Constitutional: Positive for fatigue. HENT: Negative for congestion. Eyes: Negative for discharge. Respiratory: Negative for apnea. Cardiovascular: Positive for leg swelling. Gastrointestinal: Negative for abdominal distention. Genitourinary: Negative for difficulty urinating. Musculoskeletal: Positive for arthralgias. Skin: Negative for color change. Neurological: Positive for weakness. Psychiatric/Behavioral: The patient is nervous/anxious. Physical Exam Vitals: 11/09/22 0725 BP: 148/74 Pulse: 59 Resp: 19 Temp: 97.9 ??F (36.6 ??C) SpO2: 95% Physical Exam Constitutional: General: He is not in acute distress. HENT: Head: Atraumatic. Eyes: Conjunctiva/sclera: Conjunctivae normal. Cardiovascular: Rate and Rhythm: Normal rate. Pulmonary: Effort: Pulmonary effort is normal. Abdominal: General: There is no distension. Skin: Findings: No erythema. Neurological: Coordination: Coordination abnormal. Neurologic Exam Mental Status Oriented to person. Lab Data Reviewed current lab results available to me today. Lab Results Component Value Date WBC 7.8 11/09/2022 HGB 10.6 (L) 11/09/2022 HCT 33.2 (L) 11/09/2022 MCV 91.2 11/09/2022 PLT 257 11/09/2022 Lab Results Component Value Date GLUCOSE 121 (H) 11/09/2022 CALCIUM 9.1 11/09/2022 NA 142 11/09/2022 K 4.1 11/09/2022 CO2 26 11/09/2022 CL 109 (H) 11/09/2022 BUN 21 11/09/2022 CREATININE 0.97 11/09/2022 ANIONGAP 7 (L) 11/09/2022 Imaging Reviewed current imaging results available to me today. No results found. Assessment & Plan: Esperanza Chaparro is a 67 y.o. male patient with Cerebrovascular accident functional impairment for rehab Cerebrovascular accident L sided hemiplegia ( dense ) Left face droop Dysarthria - on aspirin, Plavix 90 days, statin - gabapentin for neuropathy, 200 mg t.i.d., scheduled Tylenol PT, OT for gait training and ADL training, Nursing for bowel and bladder care. Speech therapy for swallow evaluation and cognitive evaluation. Skin/Wounds: - Skin integrity and Pressure ulcer prevention: frequent repositioning and adequate pressure relief. Maintain clean, dry skin. If needed, q2 hour turns when in bed and regular skin checks, application of protective barrier cream, toileting schedule. Wound RN consult Bowel & Bladder - monitor bowel movement - adjust scheduled and PRN bowel regimen as needed - monitor for adequate urinary output - should suspicion for urinary retention arise, PVR of random bladder scan will be performed for further assessment Continue current medical management. RECOMMENDATIONS At the current time, this inpatient hospital rehabilitation stay is medically necessary to achieve important health and functional goals. The patient requires frequent physician visits, 24-hour rehabilitation nursing, and a coordinated intensive rehabilitation program as described above to address complex medical, nursing, and rehabilitation needs. Continue inpatient comprehensive interdisciplinary rehabilitation to address strengthening, mobility skills, self care, cognitive functioning, speech, communication and swallowing needs. The patient continues to require the interdisciplinary team approach and 24 hour monitoring. DIET: Dietary Orders (From admission, onward) Start Ordered 10/29/22 1700 Nutritional supplement Oral 3 times daily with meals Comments: Send vanilla ensure high protein TID End/Expires: Until Specified Question Answer Comment Administration Route: Oral Place order in third constitution party system. Done 10/29/22 1346 10/28/222111 Adult Diet Regular; 6 Soft & Bite-Sized (NDD III); 0 Thin (All Liquids) Diet effective now End/Expires: Until Specified References: [employer] Website Question Answer Comment Diet Type: Regular Diet Texture: 6 Soft & Bite-Sized (NDD III) Liquid Consistency: 0 Thin (All Liquids) Place order in third constitution party system. 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 On modified diet IVF dced on 11/06 # Gout : Stable On PRN Ibuprofen # DMII On oral meds # HTN - continue amlodipine and losartan #CAD s/p PCI - continue ASA, statin # COPD - home inhalers, duonebs prn # Pain: Oxy and Lidoderm Left hip XR on 11/06 Mild symmetric degenerative change the hip joints are present with minimal joint space narrowing. Team Conference: 11/09/2022 Please refer to team conference note from today for details Case discussed with addiction social worker/ PT/OT/nursing . 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 BP, BS , HR, labs, strength. .Chief Complaint Renal 42/1.5 Hr 50s BP low DC norvasc Decrease dose of coreg and cozaar strength improving, able to do therapy ok. No chest pain, no SOB, no dizziness, no palpitations, no new neurologic symptoms. No cough, No nausea or vomiting, No abdominal pain. History also obtained from Nurse and staff about how the patient did overnight and during the day strength improving, able to do therapy ok. Brief 10/31: Patient seen and examined this morning. Patient complaining of uncontrolled pain. Follow up with PM&R for further recommendations. Continue current medical management. 11/01: Patient seen and examined this afternoon. Patient continues to complain of uncontrolled pain.Follow up with PM&R for further recommendations. Have placed orders for Flexeril 5 mg TID PRN. Continue current medical management. 11/02: Patient seen and examined this morning. Patient complaining of uncontrolled pain. Follow up with PM&R for further recommendations. Patient has been having great toe pain. Possibly patient has gout. Follow up uric acid. Follow up Podiatry further recommendations regarding foot care. Continue current medical management. 11/03:Patient seen and examined this morning. Vitals and labs reviewed. Resting comfortably. No acute events overnight. Continue current medical management. 11/04 BP up once No complaints Doing better in therapy 11/05 No events reported Vitals/labs reviewed Participating with therapy 11/06 The patient was seen in the room this afternoon. The patient currently does not report any chest pain, shortness present nausea or vomiting No reported issues from the floor nurse. The most recent labs and vital signs were reviewed. 11/07 Patient seen and examined Doing fine No new issues to report Labs/vitals reviewed 11/08 Patient seen and examined Doing fine No new issues to report Labs/vitals reviewed istory Patient is a 67-year-old male with past medical history of CAD, COPD, hypertension, diabetes, sleepapnea, colon cancer status post colectomy who was transferred to [facility] with new neurologicaldeficits. Imaging confirmed acute on chronic right MCA and SHEA stroke. Patient did receive tPA in the ER. Patient was admitted to the neuro ICU. Patient's clinical condition stabilized. Patient was kept on aspirin Plavix for 90 days. Patient was started on statin. Patient is on Jardiance. Secondarystroke workup was completed. Patient also did complete a course of Unasyn for peritonsillar abscess. Patient worked with physical therapy and occupational therapy. Acute inpatient rehab was recommende d. HOME Medications Prior to Admission medications Medication Sig Start Date End Date Taking? Authorizing Provider Brinzolamide-Brimonidine 1-0.2 % suspension Administer 1 drop into both eyes 3 (three) times a day.Yes Historical Provider, budesonide-formoterol (SYMBICORT) 160-4.5 MCG/ACT inhaler Inhale 2 puffs RT 2 (two) times a day. Yes Historical Provider, cabergoline (DOSTINEX) 0.5 MG tablet Take 0.5 tablets (0.25 mg total) by mouth 2 (two) times a week. Yes Historical Provider, carboxymethylcellulose (Carboxymethylcellulose Sodium) solution Apply 1 drop (0.05 mL total) to both eyes 4 (four) times a day as needed for dry eyes. Yes Historical Provider, ergocalciferol (vitamin D2, Ergocalciferol,) 1.25 MG (59461 UT) capsule Take 1 capsule (50,000 Units total) by mouth once a week. Yes Historical Provider, melatonin tablet Take 8 tablets (8 mg total) by mouth nightly. Yes Historical Provider, Tiotropium [place] Monohydrate (Spiriva Respimat) 2.5 MCG/ACT aerosol solution Inhale 2 puffs (5 mcg total) RT Daily. Yes Historical Provider, CURRENT Medications Current Facility-Administered Medications: acetaminophen (TYLENOL) tablet 650 mg, 650 mg, Oral, Q8H BERNARDO, Marion Perry MD, 650 mg at 11/09/22 0541 aspirin EC tablet 81 mg, 81 mg, Oral, Once a day, Marion Perry MD, 81 mg at 11/09/22 1011 bismuth subsalicylate (PEPTO BISMOL) 262 MG/15ML suspension 30 mL, 30 mL, Oral, Q6H PRN, Marion Perry MD, 30 mL at 11/05/22 2127 brimonidine (ALPHAGAN) 0.2 % ophthalmic solution 1 drop, 1 drop, Both Eyes, 3 times per day, Urban Perry MD, 1 drop at 11/09/22 1004 calcium carbonate (TUMS) chewable tablet 1,000 mg, 1,000 mg, Oral, Q2H PRN, Marion Perry MD, 1,000 mg at 11/01/22 1313 carvedilol (COREG) tablet 3.125 mg, 3.125 mg, Oral, 2 times per day, Raul Vo MD, 3.125 mg at11/09/22 1008 nicotine (NICODERM CQ) patch 21 mg, 21 mg, Transdermal, Once a day, 21 mg at 11/09/22 1014 AND Check Patch Placement, , Transdermal, 2 times per day, Marion Perry MD, Check Patch Placement at 11/09/22 1014 cholecalciferol (VITAMIN D3) capsule 50,000 Units, 50,000 Units, Oral, Weekly, Soto Meng MD, 50,000 Units at 11/06/22 0924 clopidogrel (PLAVIX) tablet 75 mg, 75 mg, Oral, Once a day, Marion Perry MD, 75 mg at 11/09/22 1008 cyclobenzaprine (FLEXERIL) tablet 5 mg, 5 mg, Oral, TID PRN, Raul Vo MD, 5 mg at 11/04/22 2155 dextrose (GLUTOSE) 40 % oral gel 15 g, 15 g, Oral, PRN, Marino Perry MD dextrose 50 % IV solution 12.5 g, 12.5 g, Intravenous, PRN OR dextrose 50 % IV solution 25 g, 25 g, Intravenous, PRN, Marion Perry MD Fluticasone-Salmeterol (AIRDUO RESPICLICK) 232-14 MCG/ACT inhaler 1 puff, 1 puff, Inhalation, RT BID, Marion Perry MD, 1 puff at 11/09/22 1004 gabapentin (NEURONTIN) capsule 200 mg, 200 mg, Oral, 3 times per day, Marion Perry MD, 200 mgat 11/09/22 1010 glipiZIDE (GLUCOTROL) tablet 5 mg, 5 mg, Oral, Once a day, Soto Meng MD, 5 mg at 11/09/22 1011 glucagon injection reconstituted solution 1 mg, 1 mg, Intramuscular, PRN, Marion Perry MD hemorrhoidal ointment, , Apply externally, TID PRN, Marion Perry MD, Given at 11/09/22 0104 heparin (porcine) injection 5,000 Units, 5,000 Units, Subcutaneous, Q8H BERNARDO, Marion Perry MD,5,000 Units at 11/09/22 0542 ibuprofen (MOTRIN) tablet 200 mg, 200 mg, Oral, Q6H PRN, Carolina Garibay MD ipratropium-albuterol (DUO-NEB) 0.5-2.5 mg/3 mL nebulizer solution 3 mL, 3 mL, Inhalation, Q 4 hours PRN, Marion Perry MD, 3 mL at 11/02/22 2344 ketoconazole (NIZORAL) 2 % cream, , Topical, Once a day, Shorty Menard DPM, Given at 11/08/22 0953 lidocaine (LIDOCARE) 4 % patch 3 patch, 3 patch, Transdermal, Once a day, Carolina Garibay MD, 3 patch at 11/09/22 1007 lidocaine (XYLOCAINE) 1 % injection 8 mL, 8 mL, Other, Once, Carolina Garibay MD losartan (COZAAR) tablet 25 mg, 25 mg, Oral, Once a day, Valencia Johnson MD, 25 mg at 11/09/22 1010 melatonin tablet 9 mg, 9 mg, Oral, Nightly, Marion Perry MD, 9 mg at 11/08/22 2149 muscle rub (ICY HOT) 10-15 % cream, , Topical, 2 times per day, Carolina Garibay MD oxyCODONE (ROXICODONE) immediate release tablet 5 mg, 5 mg, Oral, Q4H PRN, Carolina Garibay MD, 5 mgat 11/09/22 1019 polyethylene glycol (MIRALAX) packet 17 g, 17 g, Oral, BID PRN, Carolina Garibay MD, 17 g at 11/04/22 215 rosuvastatin (CRESTOR) tablet 40 mg, 40 mg, Oral, Once a day, Marion Perry MD, 40 mg at 11/09/22 1009 simethicone (MYLICON) chewable tablet 80 mg, 80 mg, Oral, 4x Daily PRN, Marion Perry MD, 80 mg at 10/31/22 1818 tamsulosin (FLOMAX) 24 hr capsule 0.4 mg, 0.4 mg, Oral, After Breakfast, Marion Perry MD, 0.4mg at 11/09/22 1011 triamcinolone acetonide (KENALOG-40) injection 40 mg, 40 mg, Intra-articular, Once, Carolina Garibay MD Umeclidinium [place] (INCRUSE ELLIPTA) 62.5 MCG/ACT inhaler 62.5 mcg, 1 puff, Inhalation, RT Daily,Marion Perry MD, 62.5 mcg at 11/09/22 1005 DATA Vitals: 11/08/22 0756 11/08/22 1754 11/08/22200411/09/22 07 BP: 109/65 108/62 147/66 148/74 Pulse: 55 56 55 59 Resp: 18 Temp: 97.7 ??F (36.5 ??C) 97.6 ??F (36.4 ??C) 97.9 ??F (36.6 ??C) TempSrc: Oral Oral Oral SpO2: 93% 96% 95% Weight: Height: POC Glucose POC Glucose 11/09/22 0525 116 11/08/22 1608 173 Weights (last 3 days) Date/Time Weight 11/07/22 2311 225 lb (102.1 kg) @ANTICOAGSUMMARY@ @FLOWDATE(2706:LAST)@ Intake/Output Summary (Last 24 hours) at 11/09/2022 1206 Last data filed at 11/09/2022 0908 Gross per 24 hour Intake 1080 ml Output -- Net 1080 ml PHYSICAL EXAM General appearance: awake, alert, cooperative, no distress HEENT: Normocephalic, No icterus, No oral lesions, Oral and nasal mucosa moist Neck: Supple, no lymphadenopathy Eyes: EOMI, Conjunctiva normal, No discharge Cardiovascular: Normal heart rate, Normal rhythm, No murmurs, No rubs, No gallops Respiratory: Normal breath sounds, No respiratory distress, No wheezing, No rhonchi, No rales, No chest tenderness. GI: Bowel sounds normal, Soft, No tenderness, No rebound or guarding, No masses. Abdomen: soft without mass, non-tender, with normal bowel sounds Extremities: no clubbing, cyanosis or edema, no calf tenderness Musculoskeletal:no swelling of joints.no redness Psychologic: Mood ok, no suicidal ideation. 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 LABS CBC with Differential: Lab Results Component Value Date WBC 7.8 11/09/2022 HGB 10.6 (L) 11/09/2022 HCT 33.2 (L) 11/09/2022 PLT 257 11/09/2022 MCV 91.2 11/09/2022 MCH 29.1 11/09/2022 MCHC 31.9 11/09/2022 RDW 13.8 11/09/2022 [ BMP: Lab Results Component Value Date NA 142 11/09/2022 K 4.1 11/09/2022 CL 109 (H) 11/09/2022 CO2 26 11/09/2022 BUN 21 11/09/2022 CREATININE 0.97 11/09/2022 GLUCOSE 121 (H) 11/09/2022 CALCIUM 9.1 11/09/2022 ANIONGAP 7 (L) 11/09/2022 MG/PHOS: No results found for: MG, PHOS CKMB: No components found for: CKMB;2 PT/INR: No results found for: LABPROT, INR BNP: No results found for: BNP Last 3 Troponin: No components found for: TROPONINI;3 U/A: No results found for: COLORU, CLARITYU, GLUCOSEU, BILIRUBINUR, KETONESU, SPECGRAV, BLOODU, PHUR, UROBILINOGEN, NITRITE, LEUKOCYTESUR, MUCUS, RBCUA, WBCUA CMP: Lab Results Component Value Date NA 142 11/09/2022 K 4.1 11/09/2022 CL 109 (H) 11/09/2022 CO2 26 11/09/2022 BUN 21 11/09/2022 CREATININE 0.97 11/09/2022 GLUCOSE 121 (H) 11/09/2022 CALCIUM 9.1 11/09/2022 ANIONGAP 7 (L) 11/09/2022 LFT's: No results found for: ALB, PROT Ionized Calcium: No components found for: IONCA ABG: No results found for: PHART, [id number], PO2ART, UFC2ZIS, BEART, [id number] HgBA1c: No results found for: HGBA1C Lipid Panel: No results found for: CHOL, TRIG, HDL TSH: No results found for: TSH Lab Results Component Value Date GLUCOSE 121 (H) 11/09/2022 BUN 21 11/09/2022 CREATININE 0.97 11/09/2022 NA 142 11/09/2022 K 4.1 11/09/2022 CL 109 (H) 11/09/2022 CO2 26 11/09/2022 CALCIUM 9.1 11/09/2022 @RESU CBC: Recent Labs Lab Units 11/09/22 0416 WBC X(10)9/L BLOOD x10E9/L 7.8 HGB GM/DL BLOOD gm/dL 10.6* PLT CT X(10)9/L BLOOD x10E9/L 257 MCV FL BLOOD fl 91.2 BMP: Recent Labs Lab Units 11/09/22 0416 SODIUM MMOL/L BLOOD mmol/L 142 POTASSIUM MMOL/L BLOOD mmol/L 4.1 CHLORIDE mmol/L 109* CO2 mmol/L 26 BUN MG/DL BLOOD mg/dL 21 CREATININE mg/dL 0.97 GLUCOSE MG/DL BLOOD mg/dL 121* CALCIUM MG/DL BLOOD mg/dL 9.1 I reviewed the EKG tracing/Xray Recent Labs Lab Units 11/09/22 0416 SODIUM MMOL/L BLOOD mmol/L 142 POTASSIUM MMOL/L BLOOD mmol/L 4.1 CHLORIDE mmol/L 109* CO2 mmol/L 26 BUN MG/DL BLOOD mg/dL 21 CREATININE mg/dL 0.97 GLUCOSE MG/DL BLOOD mg/dL 121* CALCIUM MG/DL BLOOD mg/dL 9.1 ANION GAP BLOOD mmol/L 7* ASSESSMENT AND PLAN Principal Problem: Cerebrovascular accident Active Problems: Dysphagia Acute CVA Patient found to have a right acute on chronic MCA stroke and a SHEA ischemic stroke Patient received tPA in the ER Patient was admitted to the neuro ICU Patient was started on aspirin and Plavix Secondary stroke workup was completed Patient will be on 90 days of aspirin Plavix, end date 01/18/2023 Continue physical therapy Continue occupational therapy Physical medicine physician to oversee overall rehab program Hypertension Continue amlodipine 10 mg daily Bp low- dc norvasc DC IVF Bradycardia Decrease dose of coreg Mild renal insufficiency JUST finished IVF Inc po fluids F/U labs CAD Continue aspirin, coreg, plavix COPD Continue airduo Dysphagia Speech therapy DVT prophylaxis Continue heparin Code status Full code D/W patient , and attending physician about test results and treatment plan .No family in the room.Patient requiring monitoring of BP and HR while doing 3 hour intensive exercises to avoid fluctuations and hypotension . Aswell as monitoring of nutritional and fluid status , by weights, leg edema .Notified staff and patient to notify me of any change inconditions or new problems * Marion Perry MD - 11/07/2022 10:36 AM CDT HOSPITALIST PROGRESS NOTE Patient Name: Esperanza Chaparro : 1955 Medical Record: [id number] ATTENDING Carolina Garibay MD SUBJECTIVE 10/30 The patient is being seen for follow-up of Cerebrovascular accident. BP, BS , HR, labs, strength. .Chief Complaint Renal 42/1.5 Hr 50s BP low DC norvasc Decrease dose of coreg and cozaar strength improving, able to do therapy ok. No chest pain, no SOB, no dizziness, no palpitations, no new neurologic symptoms. No cough, No nausea or vomiting, No abdominal pain. History also obtained from Nurse and staff about how the patient did overnight and during the day strength improving, able to do therapy ok. Brief 10/31: Patient seen and examined this morning. Patient complaining of uncontrolled pain. Follow up with PM&R for further recommendations. Continue current medical management. 11/01: Patient seen and examined this afternoon. Patient continues to complain of uncontrolled pain.Follow up with PM&R for further recommendations. Have placed orders for Flexeril 5 mg TID PRN. Continue current medical management. 11/02: Patient seen and examined this morning. Patient complaining of uncontrolled pain. Follow up with PM&R for further recommendations. Patient has been having great toe pain. Possibly patient has gout. Follow up uric acid. Follow up Podiatry further recommendations regarding foot care. Continue current medical management. 11/03:Patient seen and examined this morning. Vitals and labs reviewed. Resting comfortably. No acute events overnight. Continue current medical management. 11/04 BP up once No complaints Doing better in therapy 11/05 No events reported Vitals/labs reviewed Participating with therapy 11/06 The patient was seen in the room this afternoon. The patient currently does not report any chest pain, shortness present nausea or vomiting No reported issues from the floor nurse. The most recent labs and vital signs were reviewed. 11/07 Patient seen and examined Doing fine No new issues to report Labs/vitals reviewed istory Patient is a 67-year-old male with past medical history of CAD, COPD, hypertension, diabetes, sleepapnea, colon cancer status post colectomy who was transferred to [facility] with new neurologicaldeficits. Imaging confirmed acute on chronic right MCA and SHEA stroke. Patient did receive tPA in the ER. Patient was admitted to the neuro ICU. Patient's clinical condition stabilized. Patient was kept on aspirin Plavix for 90 days. Patient was started on statin. Patient is on Jardiance. Secondarystroke workup was completed. Patient also did complete a course of Unasyn for peritonsillar abscess. Patient worked with physical therapy and occupational therapy. Acute inpatient rehab was recommende d. HOME Medications Prior to Admission medications Medication Sig Start Date End Date Taking? Authorizing Provider Brinzolamide-Brimonidine 1-0.2 % suspension Administer 1 drop into both eyes 3 (three) times a day.Yes Historical Provider, budesonide-formoterol (SYMBICORT) 160-4.5 MCG/ACT inhaler Inhale 2 puffs RT 2 (two) times a day. Yes Historical Provider, MD cabergoline (DOSTINEX) 0.5 MG tablet Take 0.5 tablets (0.25 mg total) by mouth 2 (two) times a week. Yes Historical Provider, carboxymethylcellulose (Carboxymethylcellulose Sodium) solution Apply 1 drop (0.05 mL total) to both eyes 4 (four) times a day as needed for dry eyes. Yes Historical Provider, ergocalciferol (vitamin D2, Ergocalciferol,) 1.25 MG (65869 UT) capsule Take 1 capsule (50,000 Units total) by mouth once a week. Yes Historical Provider, melatonin tablet Take 8 tablets (8 mg total) by mouth nightly. Yes Historical Provider, Tiotropium [place] Monohydrate (Spiriva Respimat) 2.5 MCG/ACT aerosol solution Inhale 2 puffs (5 mcg total) RT Daily. Yes Historical Provider, CURRENT Medications Current Facility-Administered Medications: acetaminophen (TYLENOL) tablet 650 mg, 650 mg, Oral, Q8H BERNARDO, Marion Perry MD, 650 mg at 11/07/22 0552 aspirin EC tablet 81 mg, 81 mg, Oral, Once a day, Marion Peryr MD, 81 mg at 11/07/22 0855 bismuth subsalicylate (PEPTO BISMOL) 262 MG/15ML suspension 30 mL, 30 mL, Oral, Q6H PRN, Marion Perry MD, 30 mL at 11/05/22 2127 calcium carbonate (TUMS) chewable tablet 1,000 mg, 1,000 mg, Oral, Q2H PRN, Marion ePrry MD, 1,000 mg at 11/01/22 1313 carvedilol (COREG) tablet 3.125 mg, 3.125 mg, Oral, 2 times per day, Raul Vo MD, 3.125 mg at11/07/22 0856 nicotine (NICODERM CQ) patch 21 mg, 21 mg, Transdermal, Once a day, 21 mg at 11/07/22 0857 AND Check Patch Placement, , Transdermal, 2 times per day, Marion Perry MD, Check Patch Placement at 11/07/22 0911 cholecalciferol (VITAMIN D3) capsule 50,000 Units, 50,000 Units, Oral, Weekly, Soto Meng MD, 50,000 Units at 11/06/22 0924 clopidogrel (PLAVIX) tablet 75 mg, 75 mg, Oral, Once a day, Marion Perry MD, 75 mg at 11/07/22 0856 cyclobenzaprine (FLEXERIL) tablet 5 mg, 5 mg, Oral, TID PRN, Raul Vo MD, 5 mg at 11/04/22 2155 dextrose (GLUTOSE) 40 % oral gel 15 g, 15 g, Oral, PRN, Marion Perry MD dextrose 50 % IV solution 12.5 g, 12.5 g, Intravenous, PRN OR dextrose 50 % IV solution 25 g, 25 g, Intravenous, PRN, Marion Perry MD Fluticasone-Salmeterol (AIRDUO RESPICLICK) 232-14 MCG/ACT inhaler 1 puff, 1 puff, Inhalation, RT BID, Marion Perry MD, 1 puff at 11/07/22 0856 gabapentin (NEURONTIN) capsule 200 mg, 200 mg, Oral, 3 times per day, Marion Perry MD, 200 mgat 11/07/22 0855 glipiZIDE (GLUCOTROL) tablet 5 mg, 5 mg, Oral, Once a day, Soto Meng MD, 5 mg at 11/07/22 0855 glucagon injection reconstituted solution 1 mg, 1 mg, Intramuscular, PRN, Marion Perry MD hemorrhoidal ointment, , Apply externally, TID PRN, Marion Perry MD, Given at 10/30/22 1342 heparin (porcine) injection 5,000 Units, 5,000 Units, Subcutaneous, Q8H BERNARDO, Marion Perry MD,5,000 Units at 11/07/22 0552 ibuprofen (MOTRIN) tablet 200 mg, 200 mg, Oral, Q6H PRN, Carolina Garibay MD insulin lispro injection 0-12 Units, 0-12 Units, Subcutaneous, 2 times per day AND POCT glucose, , , BID AC, Soto Meng MD ipratropium-albuterol (DUO-NEB) 0.5-2.5 mg/3 mL nebulizer solution 3 mL, 3 mL, Inhalation, Q 4 hours PRN, Marion Perry MD, 3 mL at 11/02/22 2344 ketoconazole (NIZORAL) 2 % cream, , Topical, Once a day, Shorty Menard DPM, Given at 11/07/22 0856 lidocaine (LIDOCARE) 4 % patch 3 patch, 3 patch, Transdermal, Once a day, Carolina Garibay MD, 3 patch at 11/06/22 0923 lidocaine (XYLOCAINE) 1 % injection 8 mL, 8 mL, Other, Once, Carolina Garibay MD losartan (COZAAR) tablet 25 mg, 25 mg, Oral, Once a day, Valencia Johnson MD, 25 mg at 11/06/22 09 melatonin tablet 9 mg, 9 mg, Oral, Nightly, Marion Perry MD, 9 mg at 11/06/222009 oxyCODONE (ROXICODONE) immediate release tablet 5 mg, 5 mg, Oral, Q4H PRN, Carolina Garibay MD, 5 mgat 11/06/22 101 polyethylene glycol (MIRALAX) packet 17 g, 17 g, Oral, BID PRN, Carolina Garibay MD, 17 g at 11/04/22 215 rosuvastatin (CRESTOR) tablet 40 mg, 40 mg, Oral, Once a day, Marion Perry MD, 40 mg at 11/07/22 0855 simethicone (MYLICON) chewable tablet 80 mg, 80 mg, Oral, 4x Daily PRN, Marion Perry MD, 80 mg at 10/31/22 1818 tamsulosin (FLOMAX) 24 hr capsule 0.4 mg, 0.4 mg, Oral, After Breakfast, Marion Perry MD, 0.4mg at 11/07/22 0856 triamcinolone acetonide (KENALOG-40) injection 40 mg, 40 mg, Intra-articular, Once, Carolina Garibay MD Umeclidinium [place] (INCRUSE ELLIPTA) 62.5 MCG/ACT inhaler 62.5 mcg, 1 puff, Inhalation, RT Daily,Marion Perry MD, 62.5 mcg at 11/06/22 0922 DATA Vitals: 11/06/22 1040 11/06/22 1755 11/06/22 1905 11/07/22 0804 BP: 126/75 120/70 (!) 157/68 100/51 Pulse: 71 66 59 61 Resp: 18 18 Temp: 97.5 ??F (36.4 ??C) 97.5 ??F (36.4 ??C) TempSrc: Oral Oral SpO2: 93% 94% Weight: Height: POC Glucose POC Glucose 11/07/22 0625 111 11/06/22 1614 103 Weights (last 3 days) None @ANTICOAGSUMMARY@ @FLOWDATE(2706:LAST)@ Intake/Output Summary (Last 24 hours) at 11/07/2022 1036 Last data filed at 11/07/2022 0804 Gross per 24 hour Intake 720 ml Output 750 ml Net -30 ml PHYSICAL EXAM General appearance: awake, alert, cooperative, no distress HEENT: Normocephalic, No icterus, No oral lesions, Oral and nasal mucosa moist Neck: Supple, no lymphadenopathy Eyes: EOMI, Conjunctiva normal, No discharge Cardiovascular: Normal heart rate, Normal rhythm, No murmurs, No rubs, No gallops Respiratory: Normal breath sounds, No respiratory distress, No wheezing, No rhonchi, No rales, No chest tenderness. GI: Bowel sounds normal, Soft, No tenderness, No rebound or guarding, No masses. Abdomen: soft without mass, non-tender, with normal bowel sounds Extremities: no clubbing, cyanosis or edema, no calf tenderness Musculoskeletal:no swelling of joints.no redness Psychologic: Mood ok, no suicidal ideation. 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 LABS CBC with Differential: Lab Results Component Value Date WBC 6.6 11/05/2022 HGB 9.7 (L) 11/05/2022 HCT 30.1 (L) 11/05/2022 PLT 282 11/05/2022 MCV 92.3 11/05/2022 MCH 29.8 11/05/2022 MCHC 32.2 11/05/2022 RDW 13.6 11/05/2022 [ BMP: Lab Results Component Value Date NA 140 11/05/2022 K 4.2 11/05/2022 CL 111 (H) 11/05/2022 CO2 23 11/05/2022 BUN 20 11/05/2022 CREATININE 0.91 11/05/2022 GLUCOSE 116 (H) 11/05/2022 CALCIUM 8.5 11/05/2022 ANIONGAP 6 (L) 11/05/2022 MG/PHOS: No results found for: MG, PHOS CKMB: No components found for: CKMB;2 PT/INR: No results found for: LABPROT, INR BNP: No results found for: BNP Last 3 Troponin: No components found for: TROPONINI;3 U/A: No results found for: COLORU, CLARITYU, GLUCOSEU, BILIRUBINUR, KETONESU, SPECGRAV, BLOODU, PHUR, UROBILINOGEN, NITRITE, LEUKOCYTESUR, MUCUS, RBCUA, WBCUA CMP: Lab Results Component Value Date NA 140 11/05/2022 K 4.2 11/05/2022 CL 111 (H) 11/05/2022 CO2 23 11/05/2022 BUN 20 11/05/2022 CREATININE 0.91 11/05/2022 GLUCOSE 116 (H) 11/05/2022 CALCIUM 8.5 11/05/2022 ANIONGAP 6 (L) 11/05/2022 LFT's: No results found for: ALB, PROT Ionized Calcium: No components found for: IONCA ABG: No results found for: PHART, [id number], PO2ART, [id number], BEART, [id number] HgBA1c: No results found for: HGBA1C Lipid Panel: No results found for: CHOL, TRIG, HDL TSH: No results found for: TSH Lab Results Component Value Date GLUCOSE 116 (H) 11/05/2022 BUN 20 11/05/2022 CREATININE 0.91 11/05/2022 NA 140 11/05/2022 K 4.2 11/05/2022 CL 111 (H) 11/05/2022 CO2 23 11/05/2022 CALCIUM 8.5 11/05/2022 @RESU CBC: Recent Labs Lab Units 11/05/22 0220 WBC X(10)9/L BLOOD x10E9/L 6.6 HGB GM/DL BLOOD gm/dL 9.7* PLT CT X(10)9/L BLOOD x10E9/L 282 MCV FL BLOOD fl 92.3 BMP: Recent Labs Lab Units 11/05/22 0249 SODIUM MMOL/L BLOOD mmol/L 140 POTASSIUM MMOL/L BLOOD mmol/L 4.2 CHLORIDE mmol/L 111* CO2 mmol/L 23 BUN MG/DL BLOOD mg/dL 20 CREATININE mg/dL 0.91 GLUCOSE MG/DL BLOOD mg/dL 116* CALCIUM MG/DL BLOOD mg/dL 8.5 I reviewed the EKG tracing/Xray Recent Labs Lab Units 11/05/22 0249 SODIUM MMOL/L BLOOD mmol/L 140 POTASSIUM MMOL/L BLOOD mmol/L 4.2 CHLORIDE mmol/L 111* CO2 mmol/L 23 BUN MG/DL BLOOD mg/dL 20 CREATININE mg/dL 0.91 GLUCOSE MG/DL BLOOD mg/dL 116* CALCIUM MG/DL BLOOD mg/dL 8.5 ANION GAP BLOOD mmol/L 6* ASSESSMENT AND PLAN Principal Problem: Cerebrovascular accident Active Problems: Dysphagia Acute CVA Patient found to have a right acute on chronic MCA stroke and a SHEA ischemic stroke Patient received tPA in the ER Patient was admitted to the neuro ICU Patient was started on aspirin and Plavix Secondary stroke workup was completed Patient will be on 90 days of aspirin Plavix, end date 01/18/2023 Continue physical therapy Continue occupational therapy Physical medicine physician to oversee overall rehab program Hypertension Continue amlodipine 10 mg daily Bp low- dc norvasc DC IVF Bradycardia Decrease dose of coreg Mild renal insufficiency JUST finished IVF Inc po fluids F/U labs CAD Continue aspirin, coreg, plavix COPD Continue airduo Dysphagia Speech therapy DVT prophylaxis Continue heparin Code status Full code D/W patient , and attending physician about test results and treatment plan .No family in the room.Patient requiring monitoring of BP and HR while doing 3 hour intensive exercises to avoid fluctuations and hypotension . Aswell as monitoring of nutritional and fluid status , by weights, leg edema .Notified staff and patient to notify me of any change inconditions or new problems * Carolina Garibay MD - 11/06/2022 12:28 PM CDT PM&R PROGRESS NOTE This is Face to Face Visit note Esperanza Chaparro is a 67 y.o. male patient. Sitting in chair, pain well controlled. Functional gains seen. REVIEW OF FUNCTIONAL STATUS SM Functional Status PT Data (since 11/03/2022) Value Time User Bed Mobility Comment Rolls left with verbal cues and use of bedrail, mod assist to complete the motion. Total assist to roll right due to pt pushes with right side due to pain in left shoulder and hip/groin with attempt to roll right. 11/05/2022 10:16 AM Irlanda Sher PT WC Analysis Pt in tilt in space w/c. Use of left half lap tray for UE support. Obtained gel pad to also assist for left UE positioning. Placed on vector vicair air cushion for pressure relief- pt stated felt better. Was on lower cell roho but did not appear to support pt/hold air adequately. 11/03/2022 3:57 PM Irlanda Sher PT Functional Status OT Data (since 11/03/2022) None Therapeutic Exercise: L UE PROM and positioning. Pt tolerated about 90 degrees shoulder flexion andextension and full ROM of elbow flexion/extension, supination/pronation, and finger movements. No AROM noted in L UE. Mr Chaparro participated in balloon tennis using R UE; he needs cues for visual scanning to left side of visual field throughout activity. He did a 12 piece puzzle with min cues for visual scanning to the left. Mr Chaparro was tilted back in chair at end of session b/c of complaint of back and buttocks pain. L elbow positioned with gel heel pad. Patient Active Problem List Diagnosis Cerebrovascular accident Chronic obstructive pulmonary disease Coronary arteriosclerosis Primary hypertension Dysphagia Past Medical History: Diagnosis Date Cancer Heart disease Stroke Current Facility-Administered Medications: acetaminophen (TYLENOL) tablet 650 mg, 650 mg, Oral, Q8H BERNARDO, Marion Perry MD, 650 mg at 11/06/22 0557 Alogliptin Benzoate (NESINA) tablet 12.5 mg, 12.5 mg, Oral, Once a day, Soto Meng MD, 12.5 mg at11/06/22 0925 aspirin EC tablet 81 mg, 81 mg, Oral, Once a day, Marion Perry MD, 81 mg at 11/06/22922 bismuth subsalicylate (PEPTO BISMOL) 262 MG/15ML suspension 30 mL, 30 mL, Oral, Q6H PRN, Marion Perry MD, 30 mL at 11/05/22 212 calcium carbonate (TUMS) chewable tablet 1,000 mg, 1,000 mg, Oral, Q2H PRN, Marion Perry MD, 1,000 mg at 11/01/22 1313 carvedilol (COREG) tablet 3.125 mg, 3.125 mg, Oral, 2 times per day, Raul Vo MD, 3.125 mg at11/06/22 0928 nicotine (NICODERM CQ) patch 21 mg, 21 mg, Transdermal, Once a day, 21 mg at 11/06/2225 AND Check Patch Placement, , Transdermal, 2 times per day, Marion Perry MD, Check Patch Placement at 11/06/22925 cholecalciferol (VITAMIN D3) capsule 50,000 Units, 50,000 Units, Oral, Weekly, Soto Meng MD, 50,000 Units at 11/06/2224 clopidogrel (PLAVIX) tablet 75 mg, 75 mg, Oral, Once a day, Marion Perry MD, 75 mg at 11/06/22925 cyclobenzaprine (FLEXERIL) tablet 5 mg, 5 mg, Oral, TID PRN, Raul Vo MD, 5 mg at 11/04/22 2155 dextrose (GLUTOSE) 40 % oral gel 15 g, 15 g, Oral, PRN, Marion Perry MD dextrose 50 % IV solution 12.5 g, 12.5 g, Intravenous, PRN OR dextrose 50 % IV solution 25 g, 25 g, Intravenous, PRN, Marion Perry MD Fluticasone-Salmeterol (AIRDUO RESPICLICK) 232-14 MCG/ACT inhaler 1 puff, 1 puff, Inhalation, RT BID, Marion Perry MD, 1 puff at 11/06/22 09 gabapentin (NEURONTIN) capsule 200 mg, 200 mg, Oral, 3 times per day, Marion Perry MD, 200 mgat 11/06/22 09 glipiZIDE (GLUCOTROL) tablet 5 mg, 5 mg, Oral, Once a day, Soto Meng MD, 5 mg at 11/06/22 09 glucagon injection reconstituted solution 1 mg, 1 mg, Intramuscular, PRN, Marion Perry MD hemorrhoidal ointment, , Apply externally, TID PRN, Marion Perry MD, Given at 10/30/22 1342 heparin (porcine) injection 5,000 Units, 5,000 Units, Subcutaneous, Q8H BERNARDO, Marion Perry MD,5,000 Units at 11/06/22 0557 ibuprofen (MOTRIN) tablet 200 mg, 200 mg, Oral, Q6H PRN, Carolina Garibay MD insulin lispro injection 0-12 Units, 0-12 Units, Subcutaneous, 2 times per day AND POCT glucose, , , BID AC, Soto Meng MD ipratropium-albuterol (DUO-NEB) 0.5-2.5 mg/3 mL nebulizer solution 3 mL, 3 mL, Inhalation, Q 4 hours PRN, Mraion Perry MD, 3 mL at 11/02/22 2344 ketoconazole (NIZORAL) 2 % cream, , Topical, Once a day, Shorty Menard DPM, Given at 11/06/22926 lidocaine (LIDOCARE) 4 % patch 3 patch, 3 patch, Transdermal, Once a day, Carolina Garibay MD, 3 patch at 11/06/22922 lidocaine (XYLOCAINE) 1 % injection 8 mL, 8 mL, Other, Once, Carolina Garibay MD losartan (COZAAR) tablet 25 mg, 25 mg, Oral, Once a day, Valencia Johnson MD, 25 mg at 11/06/22 09 melatonin tablet 9 mg, 9 mg, Oral, Nightly, Marion Perry MD, 9 mg at 11/05/22 211 oxyCODONE (ROXICODONE) immediate release tablet 5 mg, 5 mg, Oral, Q4H PRN, Carolina Garibay MD, 5 mgat 11/06/22 1015 polyethylene glycol (MIRALAX) packet 17 g, 17 g, Oral, BID PRN, Carolina Garibay MD, 17 g at 11/04/222158 rosuvastatin (CRESTOR) tablet 40 mg, 40 mg, Oral, Once a day, Marion Perry MD, 40 mg at 11/06/22 09 simethicone (MYLICON) chewable tablet 80 mg, 80 mg, Oral, 4x Daily PRN, Marion Perry MD, 80 mg at 10/31/22 181 tamsulosin (FLOMAX) 24 hr capsule 0.4 mg, 0.4 mg, Oral, After Breakfast, Marion Perry MD, 0.4mg at 11/06/22 09 triamcinolone acetonide (KENALOG-40) injection 40 mg, 40 mg, Intra-articular, Once, Carolina Garibay MD Umeclidinium [place] (INCRUSE ELLIPTA) 62.5 MCG/ACT inhaler 62.5 mcg, 1 puff, Inhalation, RT Daily,Marion Perry MD, 62.5 mcg at 11/06/22 0922 Review of Systems: Review of Systems Constitutional: Positive for fatigue. HENT: Negative for congestion. Eyes: Negative for discharge. Respiratory: Negative for apnea. Cardiovascular: Positive for leg swelling. Gastrointestinal: Negative for abdominal distention. Genitourinary: Negative for difficulty urinating. Musculoskeletal: Positive for arthralgias. Skin: Negative for color change. Neurological: Positive for weakness. Psychiatric/Behavioral: The patient is nervous/anxious. Physical Exam Vitals: 11/06/22 0846 BP: 118/60 Pulse: 63 Resp: 18 Temp: 98.1 ??F (36.7 ??C) SpO2: 93% Physical Exam Constitutional: General: He is not in acute distress. HENT: Head: Atraumatic. Eyes: Conjunctiva/sclera: Conjunctivae normal. Cardiovascular: Rate and Rhythm: Normal rate. Pulmonary: Effort: Pulmonary effort is normal. Abdominal: General: There is no distension. Skin: Findings: No erythema. Neurological: Coordination: Coordination abnormal. Neurologic Exam Mental Status Oriented to person. Lab Data Reviewed current lab results available to me today. Lab Results Component Value Date WBC 6.6 11/05/2022 HGB 9.7 (L) 11/05/2022 HCT 30.1 (L) 11/05/2022 MCV 92.3 11/05/2022 PLT 282 11/05/2022 Lab Results Component Value Date GLUCOSE 116 (H) 11/05/2022 CALCIUM 8.5 11/05/2022 NA 140 11/05/2022 K 4.2 11/05/2022 CO2 23 11/05/2022 CL 111 (H) 11/05/2022 BUN 20 11/05/2022 CREATININE 0.91 11/05/2022 ANIONGAP 6 (L) 11/05/2022 Imaging Reviewed current imaging results available to me today. No results found. Assessment & Plan: Esperanza Chaparro is a 67 y.o. male patient with Cerebrovascular accident functional impairment for rehab Cerebrovascular accident L sided hemiplegia ( dense ) Left face droop Dysarthria - on aspirin, Plavix 90 days, statin - gabapentin for neuropathy, 200 mg t.i.d., scheduled Tylenol PT, OT for gait training and ADL training, Nursing for bowel and bladder care. Speech therapy for swallow evaluation and cognitive evaluation. Skin/Wounds: - Skin integrity and Pressure ulcer prevention: frequent repositioning and adequate pressure relief. Maintain clean, dry skin. If needed, q2 hour turns when in bed and regular skin checks, application of protective barrier cream, toileting schedule. Wound RN consult Bowel & Bladder - monitor bowel movement - adjust scheduled and PRN bowel regimen as needed - monitor for adequate urinary output - should suspicion for urinary retention arise, PVR of random bladder scan will be performed for further assessment Continue current medical management. RECOMMENDATIONS At the current time, this inpatient hospital rehabilitation stay is medically necessary to achieve important health and functional goals. The patient requires frequent physician visits, 24-hour rehabilitation nursing, and a coordinated intensive rehabilitation program as described above to address complex medical, nursing, and rehabilitation needs. Continue inpatient comprehensive interdisciplinary rehabilitation to address strengthening, mobility skills, self care, cognitive functioning, speech, communication and swallowing needs. The patient continues to require the interdisciplinary team approach and 24 hour monitoring. DIET: Dietary Orders (From admission, onward) Start Ordered 10/29/22 1700 Nutritional supplement Oral 3 times daily with meals Comments: Send vanilla ensure high protein TID End/Expires: Until Specified Question Answer Comment Administration Route: Oral Place order in third constitution party system. Done 10/29/22 1346 10/28/222111 Adult Diet Regular; 6 Soft & Bite-Sized (NDD III); 0 Thin (All Liquids) Diet effective now End/Expires: Until Specified References: [employer] Website Question Answer Comment Diet Type: Regular Diet Texture: 6 Soft & Bite-Sized (NDD III) Liquid Consistency: 0 Thin (All Liquids) Place order in third constitution party system. 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 On modified diet IVF dced on 11/06 # Gout : Stable On PRN Ibuprofen # DMII - Lantus Jardiance, SSI # HTN - continue amlodipine and losartan #CAD s/p PCI - continue ASA, statin # COPD - home inhalers, duonebs prn # Pain: Oxy and Lidoderm Left hip XR SANTA: SNF vs HH CAROLINA GARIBAY MD * Marion Perry MD - 11/06/2022 10:35 AM CDT HOSPITALIST PROGRESS NOTE Patient Name: Esperanza Chaparro : 1955 Medical Record: [id number] ATTENDING Carolina Garibay MD SUBJECTIVE 10/30 The patient is being seen for follow-up of Cerebrovascular accident. BP, BS , HR, labs, strength. .Chief Complaint Renal 42/1.5 Hr 50s BP low DC norvasc Decrease dose of coreg and cozaar strength improving, able to do therapy ok. No chest pain, no SOB, no dizziness, no palpitations, no new neurologic symptoms. No cough, No nausea or vomiting, No abdominal pain. History also obtained from Nurse and staff about how the patient did overnight and during the day strength improving, able to do therapy ok. Brief 10/31: Patient seen and examined this morning. Patient complaining of uncontrolled pain. Follow up with PM&R for further recommendations. Continue current medical management. 11/01: Patient seen and examined this afternoon. Patient continues to complain of uncontrolled pain.Follow up with PM&R for further recommendations. Have placed orders for Flexeril 5 mg TID PRN. Continue current medical management. 11/02: Patient seen and examined this morning. Patient complaining of uncontrolled pain. Follow up with PM&R for further recommendations. Patient has been having great toe pain. Possibly patient has gout. Follow up uric acid. Follow up Podiatry further recommendations regarding foot care. Continue current medical management. 11/03:Patient seen and examined this morning. Vitals and labs reviewed. Resting comfortably. No acute events overnight. Continue current medical management. 11/04 BP up once No complaints Doing better in therapy 11/05 No events reported Vitals/labs reviewed Participating with therapy 11/06 The patient was seen in the room this afternoon. The patient currently does not report any chest pain, shortness present nausea or vomiting No reported issues from the floor nurse. The most recent labs and vital signs were reviewed. lalit Patient is a [age]-year-old male with past medical history of CAD, COPD, hypertension, diabetes, sleep apnea, colon cancer status post colectomy who was transferred to [facility] with new neurological deficits. Imaging confirmed acute on chronic right MCA and SHEA stroke. Patient did receive tPA in the ER. Patient was admitted to the neuro ICU. Patient's clinical condition stabilized. Patient was kept on aspirin Plavix for 90 days. Patient was started on statin. Patient is on Jardiance. Secondary stroke workup was completed. Patient also did complete a course of Unasyn for peritonsillar abscess. Patient worked with physical therapy and occupational therapy. Acute inpatient rehab was recomme nded. HOME Medications Prior to Admission medications Medication Sig Start Date End Date Taking? Authorizing Provider Brinzolamide-Brimonidine 1-0.2 % suspension Administer 1 drop into both eyes 3 (three) times a day.Yes Historical Provider, budesonide-formoterol (SYMBICORT) 160-4.5 MCG/ACT inhaler Inhale 2 puffs RT 2 (two) times a day. Yes Historical Provider, cabergoline (DOSTINEX) 0.5 MG tablet Take 0.5 tablets (0.25 mg total) by mouth 2 (two) times a week. Yes Historical Provider, carboxymethylcellulose (Carboxymethylcellulose Sodium) solution Apply 1 drop (0.05 mL total) to both eyes 4 (four) times a day as needed for dry eyes. Yes Historical Provider, ergocalciferol (vitamin D2, Ergocalciferol,) 1.25 MG (20074 UT) capsule Take 1 capsule (50,000 Units total) by mouth once a week. Yes Historical Provider, melatonin tablet Take 8 tablets (8 mg total) by mouth nightly. Yes Historical Provider, Tiotropium [place] Monohydrate (Spiriva Respimat) 2.5 MCG/ACT aerosol solution Inhale 2 puffs (5 mcg total) RT Daily. Yes Historical Provider, CURRENT Medications Current Facility-Administered Medications: acetaminophen (TYLENOL) tablet 650 mg, 650 mg, Oral, Q8H BERNARDO, Marion Perry MD, 650 mg at 11/07/22 0552 aspirin EC tablet 81 mg, 81 mg, Oral, Once a day, Marion Perry MD, 81 mg at 11/07/22 0855 bismuth subsalicylate (PEPTO BISMOL) 262 MG/15ML suspension 30 mL, 30 mL, Oral, Q6H PRN, Marion Perry MD, 30 mL at 11/05/22 2127 calcium carbonate (TUMS) chewable tablet 1,000 mg, 1,000 mg, Oral, Q2H PRN, Marion Perry MD, 1,000 mg at 11/01/22 1313 carvedilol (COREG) tablet 3.125 mg, 3.125 mg, Oral, 2 times per day, Raul Vo MD, 3.125 mg at11/07/22 0856 nicotine (NICODERM CQ) patch 21 mg, 21 mg, Transdermal, Once a day, 21 mg at 11/07/22 0857 AND Check Patch Placement, , Transdermal, 2 times per day, Marion Perry MD, Check Patch Placement at 11/07/22 0911 cholecalciferol (VITAMIN D3) capsule 50,000 Units, 50,000 Units, Oral, Weekly, Soto Meng MD, 50,000 Units at 11/06/22 0924 clopidogrel (PLAVIX) tablet 75 mg, 75 mg, Oral, Once a day, Marion Perry MD, 75 mg at 11/07/22 0856 cyclobenzaprine (FLEXERIL) tablet 5 mg, 5 mg, Oral, TID PRN, Raul Vo MD, 5 mg at 11/04/22 215 dextrose (GLUTOSE) 40 % oral gel 15 g, 15 g, Oral, PRN, Marion Perry MD dextrose 50 % IV solution 12.5 g, 12.5 g, Intravenous, PRN OR dextrose 50 % IV solution 25 g, 25 g, Intravenous, PRN, Marion Perry MD Fluticasone-Salmeterol (AIRDUO RESPICLICK) 232-14 MCG/ACT inhaler 1 puff, 1 puff, Inhalation, RT BID, Marion Perry MD, 1 puff at 11/07/22 0856 gabapentin (NEURONTIN) capsule 200 mg, 200 mg, Oral, 3 times per day, Marion Perry MD, 200 mgat 11/07/22 0855 glipiZIDE (GLUCOTROL) tablet 5 mg, 5 mg, Oral, Once a day, Soto Meng MD, 5 mg at 11/07/22 0855 glucagon injection reconstituted solution 1 mg, 1 mg, Intramuscular, PRN, Marion Perry MD hemorrhoidal ointment, , Apply externally, TID PRN, Marion Perry MD, Given at 10/30/22 1342 heparin (porcine) injection 5,000 Units, 5,000 Units, Subcutaneous, Q8H BERNARDO, Marion Perry MD,5,000 Units at 11/07/22 0552 ibuprofen (MOTRIN) tablet 200 mg, 200 mg, Oral, Q6H PRN, Carolina Garibay MD insulin lispro injection 0-12 Units, 0-12 Units, Subcutaneous, 2 times per day AND POCT glucose, , , BID AC, Soto Meng MD ipratropium-albuterol (DUO-NEB) 0.5-2.5 mg/3 mL nebulizer solution 3 mL, 3 mL, Inhalation, Q 4 hours PRN, Marion Perry MD, 3 mL at 11/02/22 2344 ketoconazole (NIZORAL) 2 % cream, , Topical, Once a day, Shorty Menard DPM, Given at 11/07/22 0856 lidocaine (LIDOCARE) 4 % patch 3 patch, 3 patch, Transdermal, Once a day, Carolina Garibay MD, 3 patch at 11/06/22 0923 lidocaine (XYLOCAINE) 1 % injection 8 mL, 8 mL, Other, Once, Carolina Garibay MD losartan (COZAAR) tablet 25 mg, 25 mg, Oral, Once a day, Valencia Johnson MD, 25 mg at 11/06/22 09 melatonin tablet 9 mg, 9 mg, Oral, Nightly, Marion Perry MD, 9 mg at 11/06/222009 oxyCODONE (ROXICODONE) immediate release tablet 5 mg, 5 mg, Oral, Q4H PRN, Carolina Garibay MD, 5 mgat 11/06/22 101 polyethylene glycol (MIRALAX) packet 17 g, 17 g, Oral, BID PRN, Carolina Garibay MD, 17 g at 11/04/22 215 rosuvastatin (CRESTOR) tablet 40 mg, 40 mg, Oral, Once a day, Marion Perry MD, 40 mg at 11/07/22 0855 simethicone (MYLICON) chewable tablet 80 mg, 80 mg, Oral, 4x Daily PRN, Marion Perry MD, 80 mg at 10/31/22 1818 tamsulosin (FLOMAX) 24 hr capsule 0.4 mg, 0.4 mg, Oral, After Breakfast, Marion Perry MD, 0.4mg at 11/07/22 0856 triamcinolone acetonide (KENALOG-40) injection 40 mg, 40 mg, Intra-articular, Once, Carolina Garibay MD Umeclidinium [place] (INCRUSE ELLIPTA) 62.5 MCG/ACT inhaler 62.5 mcg, 1 puff, Inhalation, RT Daily,Marion Perry MD, 62.5 mcg at 11/06/22 0922 DATA Vitals: 11/06/22 1040 11/06/22 1755 11/06/22 1905 11/07/22 0804 BP: 126/75 120/70 (!) 157/68 100/51 Pulse: 71 66 59 61 Resp: 18 18 Temp: 97.5 ??F (36.4 ??C) 97.5 ??F (36.4 ??C) TempSrc: Oral Oral SpO2: 93% 94% Weight: Height: POC Glucose POC Glucose 11/07/22 0625 111 11/06/22 1614 103 Weights (last 3 days) None @ANTICOAGSUMMARY@ @FLOWDATE(2706:LAST)@ Intake/Output Summary (Last 24 hours) at 11/07/2022 1035 Last data filed at 11/07/2022 0804 Gross per 24 hour Intake 720 ml Output 750 ml Net -30 ml PHYSICAL EXAM General appearance: awake, alert, cooperative, no distress HEENT: Normocephalic, No icterus, No oral lesions, Oral and nasal mucosa moist Neck: Supple, no lymphadenopathy Eyes: EOMI, Conjunctiva normal, No discharge Cardiovascular: Normal heart rate, Normal rhythm, No murmurs, No rubs, No gallops Respiratory: Normal breath sounds, No respiratory distress, No wheezing, No rhonchi, No rales, No chest tenderness. GI: Bowel sounds normal, Soft, No tenderness, No rebound or guarding, No masses. Abdomen: soft without mass, non-tender, with normal bowel sounds Extremities: no clubbing, cyanosis or edema, no calf tenderness Musculoskeletal:no swelling of joints.no redness Psychologic: Mood ok, no suicidal ideation. 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 LABS CBC with Differential: Lab Results Component Value Date WBC 6.6 11/05/2022 HGB 9.7 (L) 11/05/2022 HCT 30.1 (L) 11/05/2022 PLT 282 11/05/2022 MCV 92.3 11/05/2022 MCH 29.8 11/05/2022 MCHC 32.2 11/05/2022 RDW 13.6 11/05/2022 [ BMP: Lab Results Component Value Date NA 140 11/05/2022 K 4.2 11/05/2022 CL 111 (H) 11/05/2022 CO2 23 11/05/2022 BUN 20 11/05/2022 CREATININE 0.91 11/05/2022 GLUCOSE 116 (H) 11/05/2022 CALCIUM 8.5 11/05/2022 ANIONGAP 6 (L) 11/05/2022 MG/PHOS: No results found for: MG, PHOS CKMB: No components found for: CKMB;2 PT/INR: No results found for: LABPROT, INR BNP: No results found for: BNP Last 3 Troponin: No components found for: TROPONINI;3 U/A: No results found for: COLORU, CLARITYU, GLUCOSEU, BILIRUBINUR, KETONESU, SPECGRAV, BLOODU, PHUR, UROBILINOGEN, NITRITE, LEUKOCYTESUR, MUCUS, RBCUA, WBCUA CMP: Lab Results Component Value Date NA 140 11/05/2022 K 4.2 11/05/2022 CL 111 (H) 11/05/2022 CO2 23 11/05/2022 BUN 20 11/05/2022 CREATININE 0.91 11/05/2022 GLUCOSE 116 (H) 11/05/2022 CALCIUM 8.5 11/05/2022 ANIONGAP 6 (L) 11/05/2022 LFT's: No results found for: ALB, PROT Ionized Calcium: No components found for: IONCA ABG: No results found for: PHART, [id number], PO2ART, NED2SXO, BEART, [id number] HgBA1c: No results found for: HGBA1C Lipid Panel: No results found for: CHOL, TRIG, HDL TSH: No results found for: TSH Lab Results Component Value Date GLUCOSE 116 (H) 11/05/2022 BUN 20 11/05/2022 CREATININE 0.91 11/05/2022 NA 140 11/05/2022 K 4.2 11/05/2022 CL 111 (H) 11/05/2022 CO2 23 11/05/2022 CALCIUM 8.5 11/05/2022 @RESU CBC: Recent Labs Lab Units 11/05/22 0220 WBC X(10)9/L BLOOD x10E9/L 6.6 HGB GM/DL BLOOD gm/dL 9.7* PLT CT X(10)9/L BLOOD x10E9/L 282 MCV FL BLOOD fl 92.3 BMP: Recent Labs Lab Units 11/05/22 0249 SODIUM MMOL/L BLOOD mmol/L 140 POTASSIUM MMOL/L BLOOD mmol/L 4.2 CHLORIDE mmol/L 111* CO2 mmol/L 23 BUN MG/DL BLOOD mg/dL 20 CREATININE mg/dL 0.91 GLUCOSE MG/DL BLOOD mg/dL 116* CALCIUM MG/DL BLOOD mg/dL 8.5 I reviewed the EKG tracing/Xray Recent Labs Lab Units 11/05/22 0249 SODIUM MMOL/L BLOOD mmol/L 140 POTASSIUM MMOL/L BLOOD mmol/L 4.2 CHLORIDE mmol/L 111* CO2 mmol/L 23 BUN MG/DL BLOOD mg/dL 20 CREATININE mg/dL 0.91 GLUCOSE MG/DL BLOOD mg/dL 116* CALCIUM MG/DL BLOOD mg/dL 8.5 ANION GAP BLOOD mmol/L 6* ASSESSMENT AND PLAN Principal Problem: Cerebrovascular accident Active Problems: Dysphagia Acute CVA Patient found to have a right acute on chronic MCA stroke and a SHEA ischemic stroke Patient received tPA in the ER Patient was admitted to the neuro ICU Patient was started on aspirin and Plavix Secondary stroke workup was completed Patient will be on 90 days of aspirin Plavix, end date 01/18/2023 Continue physical therapy Continue occupational therapy Physical medicine physician to oversee overall rehab program Hypertension Continue amlodipine 10 mg daily Bp low- dc norvasc DC IVF Bradycardia Decrease dose of coreg Mild renal insufficiency JUST finished IVF Inc po fluids F/U labs CAD Continue aspirin, coreg, plavix COPD Continue airduo Dysphagia Speech therapy DVT prophylaxis Continue heparin Code status Full code D/W patient , and attending physician about test results and treatment plan .No family in the room.Patient requiring monitoring of BP and HR while doing 3 hour intensive exercises to avoid fluctuations and hypotension . Aswell as monitoring of nutritional and fluid status , by weights, leg edema .Notified staff and patient to notify me of any change inconditions or new problems * Carolina Garibay MD - 11/05/2022 2:32 PM CDT PM&R PROGRESS NOTE This is Face to Face Visit note Esperanza Chaparro is a 67 y.o. male patient. Pain reasonably well controlled. Improvements with therapy REVIEW OF FUNCTIONAL STATUS SM Functional Status PT Data (since 11/02/2022) Value Time User Bed Mobility Comment Rolls left with verbal cues and use of bedrail, mod assist to complete the motion. Total assist to roll right due to pt pushes with right side due to pain in left shoulder and hip/groin with attempt to roll right. 11/05/2022 10:16 AM Irlanda Sher PT WC Analysis Pt in tilt in space w/c. Use of left half lap tray for UE support. Obtained gel pad to also assist for left UE positioning. Placed on vector vicair air cushion for pressure relief- pt stated felt better. Was on lower cell roho but did not appear to support pt/hold air adequately. 11/03/2022 3:57 PM Irlanda Sher PT SM Functional Status OT Data (since 11/02/2022) None ORAL HYGIENE: supervision, some cues for thoroughness; pt used floss stick also (used R UE only) TOILETING: dependent, incontinent (bed level for clean up) two person assist needed BATHING: max assist for sponge bathing, bed level; pt assisted with washing face, chest, yisel area and L arm (with max cues) UB DRESSING: max assist; pt was able to help with doffing shirt with max cues LB DRESSING: dependent, bed level PUTTING ON/TAKING OFF FOOTWEAR: dependent Patient Active Problem List Diagnosis Cerebrovascular accident Chronic obstructive pulmonary disease Coronary arteriosclerosis Primary hypertension Dysphagia Past Medical History: Diagnosis Date Cancer Heart disease Stroke Current Facility-Administered Medications: acetaminophen (TYLENOL) tablet 650 mg, 650 mg, Oral, Q8H BERNARDO, Marion Perry MD, 650 mg at 11/05/22 0523 Alogliptin Benzoate (NESINA) tablet 12.5 mg, 12.5 mg, Oral, Once a day, Soto Meng MD, 12.5 mg at11/05/22 0833 aspirin EC tablet 81 mg, 81 mg, Oral, Once a day, Marion Perry MD, 81 mg at 11/05/22 0832 bismuth subsalicylate (PEPTO BISMOL) 262 MG/15ML suspension 30 mL, 30 mL, Oral, Q6H PRN, Marion Perry MD, 30 mL at 11/05/22 1245 calcium carbonate (TUMS) chewable tablet 1,000 mg, 1,000 mg, Oral, Q2H PRN, Marion Perry MD, 1,000 mg at 11/01/22 1313 carvedilol (COREG) tablet 3.125 mg, 3.125 mg, Oral, 2 times per day, Raul Vo MD, 3.125 mg at11/05/22 0831 nicotine (NICODERM CQ) patch 21 mg, 21 mg, Transdermal, Once a day, 21 mg at 11/05/22 0833 AND Check Patch Placement, , Transdermal, 2 times per day, Marion Perry MD, Check Patch Placement at 11/05/22 0833 cholecalciferol (VITAMIN D3) capsule 50,000 Units, 50,000 Units, Oral, Weekly, Soto Meng MD, 50,000 Units at 10/30/22 1100 clopidogrel (PLAVIX) tablet 75 mg, 75 mg, Oral, Once a day, Marion Perry MD, 75 mg at 11/05/22 0832 cyclobenzaprine (FLEXERIL) tablet 5 mg, 5 mg, Oral, TID PRN, Raul Vo MD, 5 mg at 11/04/22 2155 dextrose (GLUTOSE) 40 % oral gel 15 g, 15 g, Oral, PRN, Marion Perry MD dextrose 50 % IV solution 12.5 g, 12.5 g, Intravenous, PRN OR dextrose 50 % IV solution 25 g, 25 g, Intravenous, PRN, Marion Perry MD Fluticasone-Salmeterol (AIRDUO RESPICLICK) 232-14 MCG/ACT inhaler 1 puff, 1 puff, Inhalation, RT BID, Marion Perry MD, 1 puff at 11/05/22 0833 gabapentin (NEURONTIN) capsule 200 mg, 200 mg, Oral, 3 times per day, Marion Perry MD, 200 mgat 11/05/22 0832 glipiZIDE (GLUCOTROL) tablet 5 mg, 5 mg, Oral, Once a day, Soto Meng MD, 5 mg at 11/05/22 0832 glucagon injection reconstituted solution 1 mg, 1 mg, Intramuscular, PRN, Marion Perry MD hemorrhoidal ointment, , Apply externally, TID PRN, Marion Perry MD, Given at 10/30/22 1342 heparin (porcine) injection 5,000 Units, 5,000 Units, Subcutaneous, Q8H BERNARDO, Marion Perry MD,5,000 Units at 11/05/22 0523 ibuprofen (MOTRIN) tablet 200 mg, 200 mg, Oral, Q6H PRN, Carolina Garibay MD insulin lispro injection 0-12 Units, 0-12 Units, Subcutaneous, 2 times per day AND POCT glucose, , , BID AC, Soto Meng MD ipratropium-albuterol (DUO-NEB) 0.5-2.5 mg/3 mL nebulizer solution 3 mL, 3 mL, Inhalation, Q 4 hours PRN, Marion Perry MD, 3 mL at 11/02/22 2344 ketoconazole (NIZORAL) 2 % cream, , Topical, Once a day, Shorty Menard DPM, Given at 11/05/22 0831 lidocaine (LIDOCARE) 4 % patch 3 patch, 3 patch, Transdermal, Once a day, Carolina Garibay MD, 3 patch at 11/05/22 0831 lidocaine (XYLOCAINE) 1 % injection 8 mL, 8 mL, Other, Once, Carolina Garibay MD losartan (COZAAR) tablet 25 mg, 25 mg, Oral, Once a day, Valencia Johnson MD, 25 mg at 11/05/22 0832 melatonin tablet 9 mg, 9 mg, Oral, Nightly, Marion Perry MD, 9 mg at 11/04/22 2155 oxyCODONE (ROXICODONE) immediate release tablet 5 mg, 5 mg, Oral, Q4H PRN, Carolina Garibay MD, 5 mgat 11/05/22 0832 polyethylene glycol (MIRALAX) packet 17 g, 17 g, Oral, BID PRN, Carolina Garibay MD, 17 g at 11/04/22 215 rosuvastatin (CRESTOR) tablet 40 mg, 40 mg, Oral, Once a day, Marion Perry MD, 40 mg at 11/05/22 0831 simethicone (MYLICON) chewable tablet 80 mg, 80 mg, Oral, 4x Daily PRN, Marion Perry MD, 80 mg at 10/31/22 1818 sodium chloride 0.9 % infusion, 100 mL/hr, Intravenous (Continuous Infusion), Continuous, Marion Perry MD, Last Rate: 100 mL/hr at 11/05/22 1221, 100 mL/hr at 11/05/22 1221 tamsulosin (FLOMAX) 24 hr capsule 0.4 mg, 0.4 mg, Oral, After Breakfast, Marion Perry MD, 0.4mg at 11/05/22 0831 triamcinolone acetonide (KENALOG-40) injection 40 mg, 40 mg, Intra-articular, Once, Carolina Garibay MD Umeclidinium [place] (INCRUSE ELLIPTA) 62.5 MCG/ACT inhaler 62.5 mcg, 1 puff, Inhalation, RT Daily,Marion Perry MD, 62.5 mcg at 11/05/22 0833 Review of Systems: Review of Systems Constitutional: Positive for fatigue. HENT: Negative for congestion. Eyes: Negative for discharge. Respiratory: Negative for apnea. Cardiovascular: Positive for leg swelling. Gastrointestinal: Negative for abdominal distention. Genitourinary: Negative for difficulty urinating. Musculoskeletal: Positive for arthralgias. Skin: Negative for color change. Neurological: Positive for weakness. Psychiatric/Behavioral: The patient is nervous/anxious. Physical Exam Vitals: 11/05/22 0740 BP: (!) 186/75 Pulse: 67 Resp: 18 Temp: 98.2 ??F (36.8 ??C) SpO2: 95% Physical Exam Constitutional: General: He is not in acute distress. HENT: Head: Atraumatic. Eyes: Conjunctiva/sclera: Conjunctivae normal. Cardiovascular: Rate and Rhythm: Normal rate. Pulmonary: Effort: Pulmonary effort is normal. Abdominal: General: There is no distension. Skin: Findings: No erythema. Neurological: Coordination: Coordination abnormal. Neurologic Exam Mental Status Oriented to person. Lab Data Reviewed current lab results available to me today. Lab Results Component Value Date WBC 6.6 11/05/2022 HGB 9.7 (L) 11/05/2022 HCT 30.1 (L) 11/05/2022 MCV 92.3 11/05/2022 PLT 282 11/05/2022 Lab Results Component Value Date GLUCOSE 116 (H) 11/05/2022 CALCIUM 8.5 11/05/2022 NA 140 11/05/2022 K 4.2 11/05/2022 CO2 23 11/05/2022 CL 111 (H) 11/05/2022 BUN 20 11/05/2022 CREATININE 0.91 11/05/2022 ANIONGAP 6 (L) 11/05/2022 Imaging Reviewed current imaging results available to me today. No results found. Assessment & Plan: Esperanza Chaparro is a 67 y.o. male patient with Cerebrovascular accident functional impairment for rehab Cerebrovascular accident L sided hemiplegia ( dense ) Left face droop Dysarthria - on aspirin, Plavix 90 days, statin - gabapentin for neuropathy, 200 mg t.i.d., scheduled Tylenol PT, OT for gait training and ADL training, Nursing for bowel and bladder care. Speech therapy for swallow evaluation and cognitive evaluation. Skin/Wounds: - Skin integrity and Pressure ulcer prevention: frequent repositioning and adequate pressure relief. Maintain clean, dry skin. If needed, q2 hour turns when in bed and regular skin checks, application of protective barrier cream, toileting schedule. Wound RN consult Bowel & Bladder - monitor bowel movement - adjust scheduled and PRN bowel regimen as needed - monitor for adequate urinary output - should suspicion for urinary retention arise, PVR of random bladder scan will be performed for further assessment Continue current medical management. RECOMMENDATIONS At the current time, this inpatient hospital rehabilitation stay is medically necessary to achieve important health and functional goals. The patient requires frequent physician visits, 24-hour rehabilitation nursing, and a coordinated intensive rehabilitation program as described above to address complex medical, nursing, and rehabilitation needs. Continue inpatient comprehensive interdisciplinary rehabilitation to address strengthening, mobility skills, self care, cognitive functioning, speech, communication and swallowing needs. The patient continues to require the interdisciplinary team approach and 24 hour monitoring. DIET: Dietary Orders (From admission, onward) Start Ordered 10/29/22 1700 Nutritional supplement Oral 3 times daily with meals Comments: Send vanilla ensure high protein TID End/Expires: Until Specified Question Answer Comment Administration Route: Oral Place order in third constitution party system. Done 10/29/22 1346 10/28/22 2112 Adult Diet Regular; 6 Soft & Bite-Sized (NDD III); 0 Thin (All Liquids) Diet effective now End/Expires: Until Specified References: IDDSI Website Question Answer Comment Diet Type: Regular Diet Texture: 6 Soft & Bite-Sized (NDD III) Liquid Consistency: 0 Thin (All Liquids) Place order in third constitution party system. 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 On modified diet On IVF per IM # Gout : Stable On PRN Ibuprofen # DMII - Lantus Jardiance, SSI # HTN - continue amlodipine and losartan #CAD s/p PCI - continue ASA, statin # COPD - home inhalers, duonebs prn # Pain: Oxy and Lidoderm [facility]: SNF vs [facility] GARIBAY MD * Luke Alexanderosiris, RD - 11/05/2022 12:51 PM CDT CLINICAL NUTRITION REASSESSMENT: Pt seen for follow up. Pt reports appetite is good, but the food is not. Complains the gravy on hismeat at lunch today is burnt. Receiving Soft Bite Sized (6)/Advanced Soft/Dysphagia 3 diet, recorded po intake averaged 53% x 8 meals. Recommend advance to cardiac diet with texture advance per OIL GAS AND PIPE TESTER. Pt reports drinking Ensure; Ensure High Protein for Muscle Health provides 160 calories ,16 grams protein and 19 grams of carb per 8 oz serving. Pt c/o constipation, last recorded BM 11/05/22. Weight up 2 lbs in past week. Labs reviewed. Blood sugars controlled, receiving nesina, glipizide, lispro. If po intake > 75% meals, recommend 75 g/meal consistent CHO restriction. Skin care continues. Patient Active Problem List Diagnosis Cerebrovascular accident Chronic obstructive pulmonary disease Coronary arteriosclerosis Primary hypertension Dysphagia H/o HLD, DM, JAMES, colon cancer Weight: Admit Weight: 228 lb 4 oz (103.5 kg) (10/28/222211) Weight Method: Bed scale (10/28/222211) Latest Weight: 230 lb (104.3 kg) (10/31/222301) Weight Method: Bed scale (10/28/222211) Weight Comment: up 2 lbs in past week Dietary Orders (From admission, onward) Start Ordered 10/29/22 1700 Nutritional supplement Oral 3 times daily with meals Comments: Send vanilla ensure high protein TID End/Expires: Until Specified Question Answer Comment Administration Route: Oral Place order in third constitution party system. Done 10/29/22 1346 10/28/222111 Adult Diet Regular; 6 Soft & Bite-Sized (NDD III); 0 Thin (All Liquids) Diet effective now End/Expires: Until Specified References: IDDSI Website Question Answer Comment Diet Type: Regular Diet Texture: 6 Soft & Bite-Sized (NDD III) Liquid Consistency: 0 Thin (All Liquids) Place order in third constitution party system. Done 10/28/222110 Food Allergies: No known food allergies. Nutrition Related Concerns: . Nutrition Related Concerns Nutrition Related Concerns: Poor Appetite NutritionSupport: Nutrition Support: No New Medications: vitamin D; glipizide and lispro adjusted Relevant Labs: Most recent labs reviewed. H/H: Recent Labs Lab Units 11/05/22 0220 HGB GM/DL BLOOD gm/dL 9.7* HCT % BLOOD % 30.1* Recent Labs Lab Units 11/05/22 0249 SODIUM MMOL/L BLOOD mmol/L 140 POTASSIUM MMOL/L BLOOD mmol/L 4.2 CHLORIDE mmol/L 111* CO2 mmol/L 23 BUN MG/DL BLOOD mg/dL 20 CREATININE mg/dL 0.91 GLUCOSE MG/DL BLOOD mg/dL 116* CALCIUM MG/DL BLOOD mg/dL 8.5 ANION GAP BLOOD mmol/L 6* Skin: . Midline Single Right Cephalic Vein - Upper Arm-Dressing Status: Clean, Dry, Intact Wound/Other Cyst/Abscess Coccyx Medial-Dressing Status: Clean, Dry, Intact Wound/Other MASD Perineum-Dressing Status: Clean, Dry, Intact Last BM: Bowel Occurrence: Incontinent (11/05/22 1208) Care Plans: Plan of Care - Nutrition Care Plans 1 Author: Luke Elizalde RD Service: -- Author Type: Registered Dietitian Filed: 11/05/2022 12:51 PM Date of Service: 11/05/2022 12:51 PM Status: Signed Continuous Improvement Consultant: Luke Elizalde RD (Registered Dietitian) Problem: Inadequate Oral Intake Description: Oral food/beverage intake that is less than established reference standards or recommendations based on physiological needs. Related to: Decreased ability to consume sufficient energy, e.g., increased nutrition needs due to prolonged catabolic illness As evidenced by: estimated protein needs of 90-95 g/day. Goal: Improve Nutritional Status Outcome: Progressing Flowsheets (Taken 10/29/2022 4930) Meals and Snacks: (soft and bite sized (6) diet) General healthful diet Medical Food Supplement Therapy: (vanilla Ensure high protein TID) Commercial beverage/Oral nutrition supplement Education Needs: none Monitor: po intake, supplement intake, weight, labs, skin, BMs Recommendations: Advance diet per OIL GAS AND PIPE TESTER, recommend cardiac restriction d/t CVA and HLD; if po intake > 75% meals, recommend 75 gm/meal CHO Continue vanilla ensure high protein TID Continue to follow every 5-7 days Luke Palmer MS, RD/[place] [id number] 11/05/22 12:51 PM CDT * Soto Meng MD - 11/05/2022 10:40 AM CDT ENDOCRINOLOGY progress note Patient Name: Esperanza Chaparro : 1955 Medical Record: [id number] DATE OF SERVICE 11/05/2022 PRIMARY CARE PHYSICIAN No primary care provider on file. ATTENDING PHYSICIAN Carolina Garibay MD CONSULTING PHYSICIAN SOTO MENG MD Follow-up Follow up for type 2 diabetes uncontrolled, glucoses are variable. Increased body weight, occasional sliding-scale insulin use. He is unable to give history, status post CVA Noted to have low vitamin-D on lab testing this admission.- replacement added, Urinary incontinence- Jardiance discontinued. HISTORY OF PRESENT ILLNESS The patient is a 67 y.o. y/o male with past medical history of CAD, COPD , hypertension, diabetes, sleep apnea, colon cancer s/p colectomy transferred to [facility] ER for neuro deficits Imaging confirmed Acute on chronic Rt MCA and SHEA ischemic stroke. Pt got tPA in ER and was admitted to neuro ICU. Pt kept on ASA, Plavix (to complete 90 days-EOT 01/18/23), Statin, Jardiance, Seen by neurology , secondary stroke work up completed . pt finished course of Unasyn for peritonsillar abscess. evaluated by therapy and recommend rehab for functional deficits. admitted to [facility] acute inpatient rehab for medical management and rehab PAST MEDICAL HISTORY Past Medical History: Diagnosis Date Cancer Heart disease Stroke PAST SURGICAL HISTORY Past Surgical History: Procedure Laterality Date CARDIAC SURGERY COLON SURGERY HERNIA REPAIR ALLERGIES Allergies Allergen Reactions Hydralazine Nausea And Vomiting Metformin Diarrhea Pioglitazone Nausea And Vomiting Lisinopril Rash Simvastatin Rash Pt reports hot flashes HOME MEDICATIONS Prior to Admission medications Medication Sig Start Date End Date Taking? Authorizing Provider Brinzolamide-Brimonidine 1-0.2 % suspension Administer 1 drop into both eyes 3 (three) times a day.Yes Historical Provider, budesonide-formoterol (SYMBICORT) 160-4.5 MCG/ACT inhaler Inhale 2 puffs RT 2 (two) times a day. Yes Historical Provider, cabergoline (DOSTINEX) 0.5 MG tablet Take 0.5 tablets (0.25 mg total) by mouth 2 (two) times a week. Yes Historical Provider, carboxymethylcellulose (Carboxymethylcellulose Sodium) solution Apply 1 drop (0.05 mL total) to both eyes 4 (four) times a day as needed for dry eyes. Yes Historical Provider, ergocalciferol (vitamin D2, Ergocalciferol,) 1.25 MG (68701 UT) capsule Take 1 capsule (50,000 Units total) by mouth once a week. Yes Historical Provider, melatonin tablet Take 8 tablets (8 mg total) by mouth nightly. Yes Historical Provider, Tiotropium [place] Monohydrate (Spiriva Respimat) 2.5 MCG/ACT aerosol solution Inhale 2 puffs (5 mcg total) RT Daily. Yes Historical Provider, CURRENT MEDICATIONS Current Facility-Administered Medications: acetaminophen (TYLENOL) tablet 650 mg, 650 mg, Oral, Q8H BERNARDO, Marion Perry MD, 650 mg at 11/05/22 0523 Alogliptin Benzoate (NESINA) tablet 12.5 mg, 12.5 mg, Oral, Once a day, Soto Meng MD, 12.5 mg at11/05/22 0833 aspirin EC tablet 81 mg, 81 mg, Oral, Once a day, Marion Perry MD, 81 mg at 11/05/22 0832 bismuth subsalicylate (PEPTO BISMOL) 262 MG/15ML suspension 30 mL, 30 mL, Oral, Q6H PRN, Marion Perry MD calcium carbonate (TUMS) chewable tablet 1,000 mg, 1,000 mg, Oral, Q2H PRN, Marion Perry MD, 1,000 mg at 11/01/22 1313 carvedilol (COREG) tablet 3.125 mg, 3.125 mg, Oral, 2 times per day, Raul Vo MD, 3.125 mg at11/05/22 0831 nicotine (NICODERM CQ) patch 21 mg, 21 mg, Transdermal, Once a day, 21 mg at 11/05/22 0833 AND Check Patch Placement, , Transdermal, 2 times per day, Marion Perry MD, Check Patch Placement at 11/05/22 0833 cholecalciferol (VITAMIN D3) capsule 50,000 Units, 50,000 Units, Oral, Weekly, Soto Meng MD, 50,000 Units at 10/30/22 1100 clopidogrel (PLAVIX) tablet 75 mg, 75 mg, Oral, Once a day, Marion Perry MD, 75 mg at 11/05/22 0832 cyclobenzaprine (FLEXERIL) tablet 5 mg, 5 mg, Oral, TID PRN, Raul Vo MD, 5 mg at 11/04/22 2155 dextrose (GLUTOSE) 40 % oral gel 15 g, 15 g, Oral, PRN, Marion Perry MD dextrose 50 % IV solution 12.5 g, 12.5 g, Intravenous, PRN OR dextrose 50 % IV solution 25 g, 25 g, Intravenous, PRN, Marion Perry MD Fluticasone-Salmeterol (AIRDUO RESPICLICK) 232-14 MCG/ACT inhaler 1 puff, 1 puff, Inhalation, RT BID, Marion Perry MD, 1 puff at 11/05/22 0833 gabapentin (NEURONTIN) capsule 200 mg, 200 mg, Oral, 3 times per day, Marion Perry MD, 200 mgat 11/05/22 0832 glipiZIDE (GLUCOTROL) tablet 5 mg, 5 mg, Oral, Once a day, Soto Meng MD, 5 mg at 11/05/22 0832 glucagon injection reconstituted solution 1 mg, 1 mg, Intramuscular, PRN, Marion Perry MD hemorrhoidal ointment, , Apply externally, TID PRN, Marion Perry MD, Given at 10/30/22 1342 heparin (porcine) injection 5,000 Units, 5,000 Units, Subcutaneous, Q8H BERNARDO, Marion Perry MD,5,000 Units at 11/05/22 0523 ibuprofen (MOTRIN) tablet 200 mg, 200 mg, Oral, Q6H PRN, Carolina Garibay MD insulin lispro injection 0-12 Units, 0-12 Units, Subcutaneous, 2 times per day AND POCT glucose, , , BID AC, Soto Meng MD ipratropium-albuterol (DUO-NEB) 0.5-2.5 mg/3 mL nebulizer solution 3 mL, 3 mL, Inhalation, Q 4 hours PRN, Marion Perry MD, 3 mL at 11/02/22 2344 ketoconazole (NIZORAL) 2 % cream, , Topical, Once a day, Shorty Menard DPM, Given at 11/05/22 0831 lidocaine (LIDOCARE) 4 % patch 3 patch, 3 patch, Transdermal, Once a day, Carolina Garibay MD, 3 patch at 11/05/22 0831 lidocaine (XYLOCAINE) 1 % injection 8 mL, 8 mL, Other, Once, Carolina Garibay MD losartan (COZAAR) tablet 25 mg, 25 mg, Oral, Once a day, Valencia Johnson MD, 25 mg at 11/05/22 0832 melatonin tablet 9 mg, 9 mg, Oral, Nightly, Marion Perry MD, 9 mg at 11/04/22 2155 oxyCODONE (ROXICODONE) immediate release tablet 5 mg, 5 mg, Oral, Q4H PRN, Carolina Garibay MD, 5 mgat 11/05/22 0832 polyethylene glycol (MIRALAX) packet 17 g, 17 g, Oral, BID PRN, Carolina Garibay MD, 17 g at [id number] rosuvastatin (CRESTOR) tablet 40 mg, 40 mg, Oral, Once a day, Marion Perry MD, 40 mg at 11/05/22 0831 simethicone (MYLICON) chewable tablet 80 mg, 80 mg, Oral, 4x Daily PRN, Marion Perry MD, 80 mg at 10/31/22 1818 sodium chloride 0.9 % infusion, 100 mL/hr, Intravenous (Continuous Infusion), Continuous, Marion Perry MD, Last Rate: 100 mL/hr at 11/05/22 1012, 100 mL/hr at 11/05/22 1012 tamsulosin (FLOMAX) 24 hr capsule 0.4 mg, 0.4 mg, Oral, After Breakfast, Marion Perry MD, 0.4mg at 11/05/22 0831 triamcinolone acetonide (KENALOG-40) injection 40 mg, 40 mg, Intra-articular, Once, Carolina Garibay MD Umeclidinium [place] (INCRUSE ELLIPTA) 62.5 MCG/ACT inhaler 62.5 mcg, 1 puff, Inhalation, RT Daily,Marion Perry MD, 62.5 mcg at 11/05/22 0833 CURRENT DIET Dietary Orders (From admission, onward) Start Ordered 10/29/22 1700 Nutritional supplement Oral 3 times daily with meals Comments: Send vanilla ensure high protein TID End/Expires: Until Specified Question Answer Comment Administration Route: Oral Place order in third constitution party system. Done 10/29/22 1346 10/28/222111 Adult Diet Regular; 6 Soft & Bite-Sized (NDD III); 0 Thin (All Liquids) Diet effective now End/Expires: Until Specified References: IDDSI Website Question Answer Comment Diet Type: Regular Diet Texture: 6 Soft & Bite-Sized (NDD III) Liquid Consistency: 0 Thin (All Liquids) Place order in third constitution party system. Done 10/28/222110 SOCIAL HISTORY reports that he has been smoking cigarettes. He started smoking about 40 years ago. He has a 15.00 pack-year smoking history. He has been exposed to tobacco smoke. He has never used smokeless tobacco. He reports that he does not drink alcohol and does not use drugs. FAMILY HISTORY Family History Problem Relation Age of Onset No Known Problems Mother No Known Problems Father No Known Problems Sister No Known Problems Brother REVIEW OF SYSTEMS General: no weight loss, no fever, no chills, no anorexia Review of system is not available Intake/Output Summary (Last 24 hours) at 11/05/2022 1040 Last data filed at 11/05/2022 0747 Gross per 24 hour Intake 840 ml Output -- Net 840 ml PHYSICAL EXAM Vital Signs: Temp: [97.6 ??F (36.4 ??C)-98.2 ??F (36.8 ??C)] 98.2 ??F (36.8 ??C) Pulse: [67-91] 67 Resp: [18-20] 18 BP: (152-186)/(75-79) 186/75 230 lb (104.3 kg)5' 11 (1.803 m)Body mass index is 32.08 kg/m??. Constitutional: Healthy, no distress HENT: Normocephalic, Atraumatic, Bilateral external ears normal, Oropharynx moist, No oral exudates, No tenderness, neck supple. Eyes: PERRL, EOMI, Conjunctiva normal, No discharge. Lymphatic: No cervical or supraclavicular lymphadenopathy noted. Cardiovascular: Normal heart rate, Normal rhythm, No murmurs, No rubs, No gallops. Respiratory: Normal breath sounds, No respiratory distress, No wheezing, No rhonchi, No rales, No chest tenderness. GI: Bowel sounds normal, Soft, No tenderness, No rebound or guarding, No masses. Integument: Warm, Dry, No erythema, No rash. LABS Most recent labs reviewed. POC Glucose POC Glucose 11/05/22 0621 133 11/04/22 1613 121 11/04/22 1217 117 Recent Labs Lab Units 11/05/22 0220 WBC X(10)9/L BLOOD x10E9/L 6.6 HGB GM/DL BLOOD gm/dL 9.7* HCT % BLOOD % 30.1* MCV FL BLOOD fl 92.3 MCH PG BLOOD pg 29.8 MCHC GM/DL BLOOD gm/dL 32.2 RDW-CV % BLOOD % 13.6 MPV FL BLOOD fl 8.7* PLT CT X(10)9/L BLOOD x10E9/L 282 Recent Labs Lab Units 11/05/22 0249 11/02/22 0022 10/31/22 0628 SODIUM MMOL/L BLOOD mmol/L 140 140 142 POTASSIUM MMOL/L BLOOD mmol/L 4.2 4.8 4.8 CHLORIDE mmol/L 111* 112* 111* CO2 mmol/L 23 18* 23 BUN MG/DL BLOOD mg/dL 20 27* 35* ANION GAP BLOOD mmol/L 6* 10 8 CREATININE mg/dL 0.91 1.23 1.28* GLUCOSE MG/DL BLOOD mg/dL 116* 110* 122* CALCIUM MG/DL BLOOD mg/dL 8.5 9.2 9.7 Latest Reference Range & Units 10/30/22 02:05 Vitamin B12 pg/mL Blood 213 - 816 pg/mL 395 Vitamin D, 25-Hydroxy 30 - 100 ng/mL 18.0 (L) (L): Data is abnormally low IMAGING STUDIES & OTHER STUDIES Not applicable ASSESSMENT Principal Problem: Cerebrovascular accident Active Problems: Dysphagia Type 2 diabetes uncontrolled Increased body weight, vitamin-D deficiency PLAN added glipizide, nesina Discontinued Jardiance in view of urinary incontinence. Optimize vitamin-D Review outside records as available Rehab per protocol Diet per nutrition services We will follow with you while The plan was discussed with the patient and/or family. Electronically signed by: SOTO MENG MD, 11/05/2022 10:40 AM CDT * Valencia Johnson MD - 11/04/2022 11:24 PM CDT HOSPITALIST PROGRESS NOTE Patient Name: Esperanza Chaparro : 1955 Medical Record: [id number] ATTENDING Carolina Garibay MD SUBJECTIVE 10/30 The patient is being seen for follow-up of Cerebrovascular accident. BP, BS , HR, labs, strength. .Chief Complaint Renal 42/1.5 Hr 50s BP low DC norvasc Decrease dose of coreg and cozaar strength improving, able to do therapy ok. No chest pain, no SOB, no dizziness, no palpitations, no new neurologic symptoms. No cough, No nausea or vomiting, No abdominal pain. History also obtained from Nurse and staff about how the patient did overnight and during the day strength improving, able to do therapy ok. Brief 10/31: Patient seen and examined this morning. Patient complaining of uncontrolled pain. Follow up with PM&R for further recommendations. Continue current medical management. 11/01: Patient seen and examined this afternoon. Patient continues to complain of uncontrolled pain.Follow up with PM&R for further recommendations. Have placed orders for Flexeril 5 mg TID PRN. Continue current medical management. 11/02: Patient seen and examined this morning. Patient complaining of uncontrolled pain. Follow up with PM&R for further recommendations. Patient has been having great toe pain. Possibly patient has gout. Follow up uric acid. Follow up Podiatry further recommendations regarding foot care. Continue current medical management. 11/03:Patient seen and examined this morning. Vitals and labs reviewed. Resting comfortably. No acute events overnight. Continue current medical management. 11/04 BP up once No complaints Doing better in therapy istory Patient is a [age]-year-old male with past medical history of CAD, COPD, hypertension, diabetes, sleep apnea, colon cancer status post colectomy who was transferred to [facility] with new neurological deficits. Imaging confirmed acute on chronic right MCA and SHEA stroke. Patient did receive tPA in the ER. Patient was admitted to the neuro ICU. Patient's clinical condition stabilized. Patient was kept on aspirin Plavix for 90 days. Patient was started on statin. Patient is on Jardiance. Secondary stroke workup was completed. Patient also did complete a course of Unasyn for peritonsillar abscess. Patient worked with physical therapy and occupational therapy. Acute inpatient rehab was recomme nded. HOME Medications Prior to Admission medications Medication Sig Start Date End Date Taking? Authorizing Provider Brinzolamide-Brimonidine 1-0.2 % suspension Administer 1 drop into both eyes 3 (three) times a day.Yes Historical Provider, budesonide-formoterol (SYMBICORT) 160-4.5 MCG/ACT inhaler Inhale 2 puffs RT 2 (two) times a day. Yes Historical Provider, cabergoline (DOSTINEX) 0.5 MG tablet Take 0.5 tablets (0.25 mg total) by mouth 2 (two) times a week. Yes Historical Provider, carboxymethylcellulose (Carboxymethylcellulose Sodium) solution Apply 1 drop (0.05 mL total) to both eyes 4 (four) times a day as needed for dry eyes. Yes Historical Provider, ergocalciferol (vitamin D2, Ergocalciferol,) 1.25 MG (79723 UT) capsule Take 1 capsule (50,000 Units total) by mouth once a week. Yes Historical Provider, melatonin tablet Take 8 tablets (8 mg total) by mouth nightly. Yes Historical Provider, Tiotropium [place] Monohydrate (Spiriva Respimat) 2.5 MCG/ACT aerosol solution Inhale 2 puffs (5 mcg total) RT Daily. Yes Historical Provider, CURRENT Medications Current Facility-Administered Medications: acetaminophen (TYLENOL) tablet 650 mg, 650 mg, Oral, Q8H BERNARDO, Marion Perry MD, 650 mg at 11/04/22 2156 Alogliptin Benzoate (NESINA) tablet 12.5 mg, 12.5 mg, Oral, Once a day, Soto Meng MD, 12.5 mg at11/04/22 0817 aspirin EC tablet 81 mg, 81 mg, Oral, Once a day, Marion Perry MD, 81 mg at 11/04/22 0819 bismuth subsalicylate (PEPTO BISMOL) 262 MG/15ML suspension 30 mL, 30 mL, Oral, Q6H PRN, Marion Perry MD calcium carbonate (TUMS) chewable tablet 1,000 mg, 1,000 mg, Oral, Q2H PRN, Marion Perry MD, 1,000 mg at 11/01/22 1313 carvedilol (COREG) tablet 3.125 mg, 3.125 mg, Oral, 2 times per day, Raul Vo MD, 3.125 mg at11/04/22 1634 nicotine (NICODERM CQ) patch 21 mg, 21 mg, Transdermal, Once a day, 21 mg at 11/04/22 0833 AND Check Patch Placement, , Transdermal, 2 times per day, Marion Perry MD, Check Patch Placement at 11/04/22 2214 cholecalciferol (VITAMIN D3) capsule 50,000 Units, 50,000 Units, Oral, Weekly, Soto Meng MD, 50,000 Units at 10/30/22 1100 clopidogrel (PLAVIX) tablet 75 mg, 75 mg, Oral, Once a day, Marion Perry MD, 75 mg at 11/04/22 0820 cyclobenzaprine (FLEXERIL) tablet 5 mg, 5 mg, Oral, TID PRN, Raul Vo MD, 5 mg at 11/04/222154 dextrose (GLUTOSE) 40 % oral gel 15 g, 15 g, Oral, PRN, Marion Perry MD dextrose 50 % IV solution 12.5 g, 12.5 g, Intravenous, PRN OR dextrose 50 % IV solution 25 g, 25 g, Intravenous, PRN, Marion Perry MD Fluticasone-Salmeterol (AIRDUO RESPICLICK) 232-14 MCG/ACT inhaler 1 puff, 1 puff, Inhalation, RT BID, Marion Perry MD, 1 puff at 11/04/222156 gabapentin (NEURONTIN) capsule 200 mg, 200 mg, Oral, 3 times per day, Marion Perry MD, 200 mgat 11/04/222154 glipiZIDE (GLUCOTROL) tablet 5 mg, 5 mg, Oral, Once a day, Soto Meng MD, 5 mg at 11/04/22 0820 glucagon injection reconstituted solution 1 mg, 1 mg, Intramuscular, PRN, Marion Perry MD hemorrhoidal ointment, , Apply externally, TID PRN, Marion Perry MD, Given at 10/30/22 1342 heparin (porcine) injection 5,000 Units, 5,000 Units, Subcutaneous, Q8H BERNARDO, Marion Perry MD,5,000 Units at 11/04/22 2156 ibuprofen (MOTRIN) tablet 200 mg, 200 mg, Oral, Q6H PRN, Carolina Garibay MD insulin lispro injection 0-12 Units, 0-12 Units, Subcutaneous, 2 times per day AND POCT glucose, , , BID AC, Soto Meng MD ipratropium-albuterol (DUO-NEB) 0.5-2.5 mg/3 mL nebulizer solution 3 mL, 3 mL, Inhalation, Q 4 hours PRN, Marion Perry MD, 3 mL at 11/02/22 2344 ketoconazole (NIZORAL) 2 % cream, , Topical, Once a day, Shorty Menard DPM lidocaine (LIDOCARE) 4 % patch 3 patch, 3 patch, Transdermal, Once a day, Carolina Garibay MD lidocaine (XYLOCAINE) 1 % injection 8 mL, 8 mL, Other, Once, Carolina Garibay MD losartan (COZAAR) tablet 25 mg, 25 mg, Oral, Once a day, Valencia Johnson MD, 25 mg at 11/04/22 08 melatonin tablet 9 mg, 9 mg, Oral, Nightly, Marion Perry MD, 9 mg at 11/04/222154 oxyCODONE (ROXICODONE) immediate release tablet 5 mg, 5 mg, Oral, Q4H PRN, Carolina Garibay MD, 5 mgat 11/04/22 124 polyethylene glycol (MIRALAX) packet 17 g, 17 g, Oral, BID PRN, Carolina Garibay MD, 17 g at 11/04/22 215 rosuvastatin (CRESTOR) tablet 40 mg, 40 mg, Oral, Once a day, Marion Perry MD, 40 mg at 11/04/22817 simethicone (MYLICON) chewable tablet 80 mg, 80 mg, Oral, 4x Daily PRN, Marion Perry MD, 80 mg at 10/31/221817 sodium chloride 0.9 % infusion, 100 mL/hr, Intravenous (Continuous Infusion), Continuous, Marion Perry MD, Last Rate: 100 mL/hr at 11/04/222156, 100 mL/hr at 11/04/222156 tamsulosin (FLOMAX) 24 hr capsule 0.4 mg, 0.4 mg, Oral, After Breakfast, Marion Perry MD, 0.4mg at 11/04/22 08 triamcinolone acetonide (KENALOG-40) injection 40 mg, 40 mg, Intra-articular, Once, Carolina Garbiay MD Umeclidinium [place] (INCRUSE ELLIPTA) 62.5 MCG/ACT inhaler 62.5 mcg, 1 puff, Inhalation, RT Daily,Marion Perry MD, 62.5 mcg at 11/04/22 0832 DATA Vitals: 11/03/22 0708 11/03/22 2025 11/04/22 0731 11/04/22 1938 BP: 100/64 (!) 152/69 119/58 (!) 152/79 Pulse: 69 54 53 91 Resp: 19 19 18 20 Temp: 98.4 ??F (36.9 ??C) 97.6 ??F (36.4 ??C) 97.4 ??F (36.3 ??C) 97.6 ??F (36.4 ??C) TempSrc: Oral Oral Oral Oral SpO2: 95% 96% 94% 100% Weight: Height: POC Glucose POC Glucose 11/04/22 1613 121 11/04/22 1217 117 11/04/22 0703 115 Weights (last 3 days) None @ANTICOAGSUMMARY@ @FLOWDATE(2706:LAST)@ Intake/Output Summary (Last 24 hours) at 11/04/2022 2324 Last data filed at 11/04/2022 1225 Gross per 24 hour Intake 720 ml Output -- Net 720 ml PHYSICAL EXAM General appearance: awake, alert, cooperative, no distress HEENT: Normocephalic, No icterus, No oral lesions, Oral and nasal mucosa moist Neck: Supple, no lymphadenopathy Eyes: EOMI, Conjunctiva normal, No discharge Cardiovascular: Normal heart rate, Normal rhythm, No murmurs, No rubs, No gallops Respiratory: Normal breath sounds, No respiratory distress, No wheezing, No rhonchi, No rales, No chest tenderness. GI: Bowel sounds normal, Soft, No tenderness, No rebound or guarding, No masses. Abdomen: soft without mass, non-tender, with normal bowel sounds Extremities: no clubbing, cyanosis or edema, no calf tenderness Musculoskeletal:no swelling of joints.no redness Psychologic: Mood ok, no suicidal ideation. 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 LABS CBC with Differential: Lab Results Component Value Date WBC 7.2 11/02/2022 HGB 9.3 (L) 11/02/2022 HCT 29.1 (L) 11/02/2022 PLT 272 11/02/2022 MCV 93.3 11/02/2022 MCH 29.8 11/02/2022 MCHC 32.0 11/02/2022 RDW 13.8 11/02/2022 [ BMP: Lab Results Component Value Date NA 140 11/02/2022 K 4.8 11/02/2022 CL 112 (H) 11/02/2022 CO2 18 (L) 11/02/2022 BUN 27 (H) 11/02/2022 CREATININE 1.23 11/02/2022 GLUCOSE 110 (H) 11/02/2022 CALCIUM 9.2 11/02/2022 ANIONGAP 10 11/02/2022 MG/PHOS: No results found for: MG, PHOS CKMB: No components found for: CKMB;2 PT/INR: No results found for: LABPROT, INR BNP: No results found for: BNP Last 3 Troponin: No components found for: TROPONINI;3 U/A: No results found for: COLORU, CLARITYU, GLUCOSEU, BILIRUBINUR, KETONESU, SPECGRAV, BLOODU, PHUR, UROBILINOGEN, NITRITE, LEUKOCYTESUR, MUCUS, RBCUA, WBCUA CMP: Lab Results Component Value Date NA 140 11/02/2022 K 4.8 11/02/2022 CL 112 (H) 11/02/2022 CO2 18 (L) 11/02/2022 BUN 27 (H) 11/02/2022 CREATININE 1.23 11/02/2022 GLUCOSE 110 (H) 11/02/2022 CALCIUM 9.2 11/02/2022 ANIONGAP 10 11/02/2022 LFT's: No results found for: ALB, PROT Ionized Calcium: No components found for: IONCA ABG: No results found for: PHART, [id number], PO2ART, [id number], BEART, [id number] HgBA1c: No results found for: HGBA1C Lipid Panel: No results found for: CHOL, TRIG, HDL TSH: No results found for: TSH Lab Results Component Value Date GLUCOSE 110 (H) 11/02/2022 BUN 27 (H) 11/02/2022 CREATININE 1.23 11/02/2022 NA 140 11/02/2022 K 4.8 11/02/2022 CL 112 (H) 11/02/2022 CO2 18 (L) 11/02/2022 CALCIUM 9.2 11/02/2022 @RESU CBC: Recent Labs Lab Units 11/02/22 0022 WBC X(10)9/L BLOOD x10E9/L 7.2 HGB GM/DL BLOOD gm/dL 9.3* PLT CT X(10)9/L BLOOD x10E9/L 272 MCV FL BLOOD fl 93.3 BMP: Recent Labs Lab Units 11/02/22 0022 SODIUM MMOL/L BLOOD mmol/L 140 POTASSIUM MMOL/L BLOOD mmol/L 4.8 CHLORIDE mmol/L 112* CO2 mmol/L 18* BUN MG/DL BLOOD mg/dL 27* CREATININE mg/dL 1.23 GLUCOSE MG/DL BLOOD mg/dL 110* CALCIUM MG/DL BLOOD mg/dL 9.2 I reviewed the EKG tracing/Xray Recent Labs Lab Units 11/02/22 0022 SODIUM MMOL/L BLOOD mmol/L 140 POTASSIUM MMOL/L BLOOD mmol/L 4.8 CHLORIDE mmol/L 112* CO2 mmol/L 18* BUN MG/DL BLOOD mg/dL 27* CREATININE mg/dL 1.23 GLUCOSE MG/DL BLOOD mg/dL 110* CALCIUM MG/DL BLOOD mg/dL 9.2 ANION GAP BLOOD mmol/L 10 ASSESSMENT AND PLAN Principal Problem: Cerebrovascular accident Active Problems: Dysphagia Acute CVA Patient found to have a right acute on chronic MCA stroke and a SHEA ischemic stroke Patient received tPA in the ER Patient was admitted to the neuro ICU Patient was started on aspirin and Plavix Secondary stroke workup was completed Patient will be on 90 days of aspirin Plavix, end date 01/18/2023 Continue physical therapy Continue occupational therapy Physical medicine physician to oversee overall rehab program Hypertension Continue amlodipine 10 mg daily Bp low- dc norvasc DC IVF Bradycardia Decrease dose of coreg Mild renal insufficiency JUST finished IVF Inc po fluids F/U labs CAD Continue aspirin, coreg, plavix COPD Continue airduo Dysphagia Speech therapy DVT prophylaxis Continue heparin Code status Full code D/W patient , and attending physician about test results and treatment plan .No family in the room.Patient requiring monitoring of BP and HR while doing 3 hour intensive exercises to avoid fluctuations and hypotension . Aswell as monitoring of nutritional and fluid status , by weights, leg edema .Notified staff and patient to notify me of any change inconditions or new problems Electronically signed by: VALENCIA JOHNSON MD, * Soto Meng MD - 11/04/2022 1:26 PM CDT ENDOCRINOLOGY progress note Patient Name: Esperanza Chaparro : 1955 Medical Record: [id number] DATE OF SERVICE 11/04/2022 PRIMARY CARE PHYSICIAN No primary care provider on file. ATTENDING PHYSICIAN Carolina Garibay MD CONSULTING PHYSICIAN SOTO MENG MD Follow-up Follow up for type 2 diabetes uncontrolled, glucoses are variable Increased body weight, occasional sliding-scale insulin use. He is unable to give history, status post CVA Noted to have low vitamin-D on lab testing this admission.- replacement added, Urinary incontinence- Jardiance discontinued. HISTORY OF PRESENT ILLNESS The patient is a 67 y.o. y/o male with past medical history of CAD, COPD , hypertension, diabetes, sleep apnea, colon cancer s/p colectomy transferred to [facility] ER for neuro deficits Imaging confirmed Acute on chronic Rt MCA and SHEA ischemic stroke. Pt got tPA in ER and was admitted to neuro ICU. Pt kept on ASA, Plavix (to complete 90 days-EOT 01/18/23), Statin, Jardiance, Seen by neurology , secondary stroke work up completed . pt finished course of Unasyn for peritonsillar abscess. evaluated by therapy and recommend rehab for functional deficits. admitted to [facility] acute inpatient rehab for medical management and rehab PAST MEDICAL HISTORY Past Medical History: Diagnosis Date Cancer Heart disease Stroke PAST SURGICAL HISTORY Past Surgical History: Procedure Laterality Date CARDIAC SURGERY COLON SURGERY HERNIA REPAIR ALLERGIES Allergies Allergen Reactions Hydralazine Nausea And Vomiting Metformin Diarrhea Pioglitazone Nausea And Vomiting Lisinopril Rash Simvastatin Rash Pt reports hot flashes HOME MEDICATIONS Prior to Admission medications Medication Sig Start Date End Date Taking? Authorizing Provider Brinzolamide-Brimonidine 1-0.2 % suspension Administer 1 drop into both eyes 3 (three) times a day.Yes Historical Provider, budesonide-formoterol (SYMBICORT) 160-4.5 MCG/ACT inhaler Inhale 2 puffs RT 2 (two) times a day. Yes Historical Provider, cabergoline (DOSTINEX) 0.5 MG tablet Take 0.5 tablets (0.25 mg total) by mouth 2 (two) times a week. Yes Historical Provider, carboxymethylcellulose (Carboxymethylcellulose Sodium) solution Apply 1 drop (0.05 mL total) to both eyes 4 (four) times a day as needed for dry eyes. Yes Historical Provider, ergocalciferol (vitamin D2, Ergocalciferol,) 1.25 MG (45384 UT) capsule Take 1 capsule (50,000 Units total) by mouth once a week. Yes Historical Provider, melatonin tablet Take 8 tablets (8 mg total) by mouth nightly. Yes Historical Provider, Tiotropium [place] Monohydrate (Spiriva Respimat) 2.5 MCG/ACT aerosol solution Inhale 2 puffs (5 mcg total) RT Daily. Yes Historical Provider, CURRENT MEDICATIONS Current Facility-Administered Medications: acetaminophen (TYLENOL) tablet 650 mg, 650 mg, Oral, Q8H BERNARDO, Marion Perry MD, 650 mg at 11/04/22 0623 Alogliptin Benzoate (NESINA) tablet 12.5 mg, 12.5 mg, Oral, Once a day, Soto Meng MD, 12.5 mg at11/04/22 0817 aspirin EC tablet 81 mg, 81 mg, Oral, Once a day, Marion Perry MD, 81 mg at 11/04/22 0819 bismuth subsalicylate (PEPTO BISMOL) 262 MG/15ML suspension 30 mL, 30 mL, Oral, Q6H PRN, Marion Perry MD calcium carbonate (TUMS) chewable tablet 1,000 mg, 1,000 mg, Oral, Q2H PRN, Marion Perry MD, 1,000 mg at 11/01/22 1313 carvedilol (COREG) tablet 3.125 mg, 3.125 mg, Oral, 2 times per day, Raul Vo MD, 3.125 mg at11/04/22 0819 nicotine (NICODERM CQ) patch 21 mg, 21 mg, Transdermal, Once a day, 21 mg at 11/04/22 0833 AND Check Patch Placement, , Transdermal, 2 times per day, Marion Perry MD, Check Patch Placement at 11/04/22 0817 cholecalciferol (VITAMIN D3) capsule 50,000 Units, 50,000 Units, Oral, Weekly, Soto Meng MD, 50,000 Units at 10/30/22 1100 clopidogrel (PLAVIX) tablet 75 mg, 75 mg, Oral, Once a day, Marion Perry MD, 75 mg at 11/04/22 0820 cyclobenzaprine (FLEXERIL) tablet 5 mg, 5 mg, Oral, TID PRN, Raul Vo MD, 5 mg at 11/01/22 1805 dextrose (GLUTOSE) 40 % oral gel 15 g, 15 g, Oral, PRN, Marion Perry MD dextrose 50 % IV solution 12.5 g, 12.5 g, Intravenous, PRN OR dextrose 50 % IV solution 25 g, 25 g, Intravenous, PRN, Marion Perry MD Fluticasone-Salmeterol (AIRDUO RESPICLICK) 232-14 MCG/ACT inhaler 1 puff, 1 puff, Inhalation, RT BID, Marion Perry MD, 1 puff at 11/04/22 0831 gabapentin (NEURONTIN) capsule 200 mg, 200 mg, Oral, 3 times per day, Marion Perry MD, 200 mgat 11/04/22 0818 glipiZIDE (GLUCOTROL) tablet 5 mg, 5 mg, Oral, Once a day, Soto Meng MD, 5 mg at 11/04/22 0820 glucagon injection reconstituted solution 1 mg, 1 mg, Intramuscular, PRN, Marion Perry MD hemorrhoidal ointment, , Apply externally, TID PRN, Marion Perry MD, Given at 10/30/22 1342 heparin (porcine) injection 5,000 Units, 5,000 Units, Subcutaneous, Q8H BERNARDO, Marion Perry MD,5,000 Units at 11/04/22 0623 ibuprofen (MOTRIN) tablet 200 mg, 200 mg, Oral, Q6H PRN, Carolina Garibay MD insulin lispro injection 0-12 Units, 0-12 Units, Subcutaneous, 2 times per day AND POCT glucose, , , BID AC, Soto Meng MD ipratropium-albuterol (DUO-NEB) 0.5-2.5 mg/3 mL nebulizer solution 3 mL, 3 mL, Inhalation, Q 4 hours PRN, Marion Perry MD, 3 mL at 11/02/22 2344 ketoconazole (NIZORAL) 2 % cream, , Topical, Once a day, Shorty Menard DPM lidocaine (LIDOCARE) 4 % patch 3 patch, 3 patch, Transdermal, Once a day, Carolina Garibay MD lidocaine (XYLOCAINE) 1 % injection 8 mL, 8 mL, Other, Once, Carolina Garibay MD losartan (COZAAR) tablet 25 mg, 25 mg, Oral, Once a day, Valencia Johnson MD, 25 mg at 11/04/22 0819 melatonin tablet 9 mg, 9 mg, Oral, Nightly, Marion Perry MD, 9 mg at 11/03/22 204 oxyCODONE (ROXICODONE) immediate release tablet 5 mg, 5 mg, Oral, Q4H PRN, Carolina Garibay MD, 5 mgat 11/04/22 1243 polyethylene glycol (MIRALAX) packet 17 g, 17 g, Oral, BID PRN, Carolina Garibay MD rosuvastatin (CRESTOR) tablet 40 mg, 40 mg, Oral, Once a day, Marion Perry MD, 40 mg at 11/04/22 0818 simethicone (MYLICON) chewable tablet 80 mg, 80 mg, Oral, 4x Daily PRN, Marion Perry MD, 80 mg at 10/31/22 1818 sodium chloride 0.9 % infusion, 100 mL/hr, Intravenous (Continuous Infusion), Continuous, Marion Perry MD, Last Rate: 100 mL/hr at 11/04/22 1220, 100 mL/hr at 11/04/22 1220 tamsulosin (FLOMAX) 24 hr capsule 0.4 mg, 0.4 mg, Oral, After Breakfast, Marion Perry MD, 0.4mg at 11/04/22 0819 triamcinolone acetonide (KENALOG-40) injection 40 mg, 40 mg, Intra-articular, Once, Carolina Garibay MD Umeclidinium [place] (INCRUSE ELLIPTA) 62.5 MCG/ACT inhaler 62.5 mcg, 1 puff, Inhalation, RT Daily,Marion Perry MD, 62.5 mcg at 11/04/22 0832 CURRENT DIET Dietary Orders (From admission, onward) Start Ordered 10/29/22 1700 Nutritional supplement Oral 3 times daily with meals Comments: Send vanilla ensure high protein TID End/Expires: Until Specified Question Answer Comment Administration Route: Oral Place order in third constitution party system. Done 10/29/22 1346 10/28/222111 Adult Diet Regular; 6 Soft & Bite-Sized (NDD III); 0 Thin (All Liquids) Diet effective now End/Expires: Until Specified References: [employer] Website Question Answer Comment Diet Type: Regular Diet Texture: 6 Soft & Bite-Sized (NDD III) Liquid Consistency: 0 Thin (All Liquids) Place order in third constitution party system. Done 10/28/222110 SOCIAL HISTORY reports that he has been smoking cigarettes. He started smoking about 40 years ago. He has a 15.00 pack-year smoking history. He has been exposed to tobacco smoke. He has never used smokeless tobacco. He reports that he does not drink alcohol and does not use drugs. FAMILY HISTORY Family History Problem Relation Age of Onset No Known Problems Mother No Known Problems Father No Known Problems Sister No Known Problems Brother REVIEW OF SYSTEMS General: no weight loss, no fever, no chills, no anorexia Review of system is not available Intake/Output Summary (Last 24 hours) at 11/04/2022 1326 Last data filed at 11/04/2022 1225 Gross per 24 hour Intake 1080 ml Output -- Net 1080 ml PHYSICAL EXAM Vital Signs: Temp: [97.4 ??F (36.3 ??C)-97.6 ??F (36.4 ??C)] 97.4 ??F (36.3 ??C) Pulse: [53-54] 53 Resp: [18-19] 18 BP: (119-152)/(58-69) 119/58 230 lb (104.3 kg)5' 11 (1.803 m)Body mass index is 32.08 kg/m??. Constitutional: Healthy, no distress HENT: Normocephalic, Atraumatic, Bilateral external ears normal, Oropharynx moist, No oral exudates, No tenderness, neck supple. Eyes: PERRL, EOMI, Conjunctiva normal, No discharge. Lymphatic: No cervical or supraclavicular lymphadenopathy noted. Cardiovascular: Normal heart rate, Normal rhythm, No murmurs, No rubs, No gallops. Respiratory: Normal breath sounds, No respiratory distress, No wheezing, No rhonchi, No rales, No chest tenderness. GI: Bowel sounds normal, Soft, No tenderness, No rebound or guarding, No masses. Integument: Warm, Dry, No erythema, No rash. LABS Most recent labs reviewed. POC Glucose POC Glucose 11/04/22 1217 117 11/04/22 0703 115 11/03/22 2138 106 11/03/22 1608 124 Recent Labs Lab Units 11/02/22 0022 WBC X(10)9/L BLOOD x10E9/L 7.2 HGB GM/DL BLOOD gm/dL 9.3* HCT % BLOOD % 29.1* MCV FL BLOOD fl 93.3 MCH PG BLOOD pg 29.8 MCHC GM/DL BLOOD gm/dL 32.0 RDW-CV % BLOOD % 13.8 MPV FL BLOOD fl 9.[address] X(10)9/L BLOOD x10E9/L 272 Recent Labs Lab Units 11/02/22 0022 10/31/22 0628 10/29/22 0532 SODIUM MMOL/L BLOOD mmol/L 140 142 141 POTASSIUM MMOL/L BLOOD mmol/L 4.8 4.8 4.8 CHLORIDE mmol/L 112* 111* 110* CO2 mmol/L 18* 23 21* BUN MG/DL BLOOD mg/dL 27* 35* 42* ANION GAP BLOOD mmol/L 10 8 10 CREATININE mg/dL 1.23 1.28* 1.58* GLUCOSE MG/DL BLOOD mg/dL 110* 122* 160* CALCIUM MG/DL BLOOD mg/dL 9.2 9.7 9.6 Latest Reference Range & Units 10/30/22 02:05 Vitamin B12 pg/mL Blood 213 - 816 pg/mL 395 Vitamin D, 25-Hydroxy 30 - 100 ng/mL 18.0 (L) (L): Data is abnormally low IMAGING STUDIES & OTHER STUDIES Not applicable ASSESSMENT Principal Problem: Cerebrovascular accident Active Problems: Dysphagia Type 2 diabetes uncontrolled Increased body weight, vitamin-D deficiency PLAN added glipizide, nesina Discontinued Jardiance in view of urinary incontinence. Optimize vitamin-D Review outside records as available Rehab per protocol Diet per nutrition services We will follow with you while The plan was discussed with the patient and/or family. Electronically signed by: SOTO MENG MD, 11/04/2022 1:26 PM CDT * Carolina Garibay MD - 11/04/2022 11:31 AM CDT PM&R PROGRESS NOTE This is Face to Face Visit note Esperanza Chaparro is a 67 y.o. male patient. No acute events over night, gains with therapy, pain well controlled. No dizziness . Good progress with therapy . Continue to benefit from intense therapy REVIEW OF FUNCTIONAL STATUS SM Functional Status PT Data (since 11/01/2022) Value Time User Bed Mobility Comment Sit to/from supine with max assist of 2-3 for trunk support, LE lift assist. Strong push with right side and resistive during position change requiring increased support. Rolls left with cues and mod/max assist to complete the motion. Rolls right with max/total assist of two and drawsheet to complete motion. 11/03/2022 3:57 PM Irlanda Sher, PT WC Analysis Pt in tilt in space w/c. Use of left half lap tray for UE support. Obtained gel pad to also assist for left UE positioning. Placed on vector vicair air cushion for pressure relief- pt stated felt better. Was on lower cell roho but did not appear to support pt/hold air adequately. 11/03/2022 3:57 PM Irlanda Sher PT Functional Status OT Data (since 11/01/2022) None ADL Training: ADL Training Narrative: Eating: supervision, cues for locating items on left side of tray. Uses R UE only. Patient Active Problem List Diagnosis Cerebrovascular accident Chronic obstructive pulmonary disease Coronary arteriosclerosis Primary hypertension Dysphagia Past Medical History: Diagnosis Date Cancer Heart disease Stroke Current Facility-Administered Medications: acetaminophen (TYLENOL) tablet 650 mg, 650 mg, Oral, Q8H BERNARDO, Marion Perry MD, 650 mg at 11/04/22 0623 Alogliptin Benzoate (NESINA) tablet 12.5 mg, 12.5 mg, Oral, Once a day, Soto Meng MD, 12.5 mg at11/04/22 0817 aspirin EC tablet 81 mg, 81 mg, Oral, Once a day, Marion Perry MD, 81 mg at 11/04/22 0819 bismuth subsalicylate (PEPTO BISMOL) 262 MG/15ML suspension 30 mL, 30 mL, Oral, Q6H PRN, Marion Perry MD calcium carbonate (TUMS) chewable tablet 1,000 mg, 1,000 mg, Oral, Q2H PRN, Marion Perry MD, 1,000 mg at 11/01/22 1313 carvedilol (COREG) tablet 3.125 mg, 3.125 mg, Oral, 2 times per day, Raul Vo MD, 3.125 mg at11/04/22 0819 nicotine (NICODERM CQ) patch 21 mg, 21 mg, Transdermal, Once a day, 21 mg at 11/04/22 0833 AND Check Patch Placement, , Transdermal, 2 times per day, Marion Perry MD, Check Patch Placement at 11/04/22 0817 cholecalciferol (VITAMIN D3) capsule 50,000 Units, 50,000 Units, Oral, Weekly, Soto Meng MD, 50,000 Units at 10/30/22 1100 clopidogrel (PLAVIX) tablet 75 mg, 75 mg, Oral, Once a day, Marion Perry MD, 75 mg at 11/04/22 0820 cyclobenzaprine (FLEXERIL) tablet 5 mg, 5 mg, Oral, TID PRN, Raul Vo MD, 5 mg at 11/01/22 1805 dextrose (GLUTOSE) 40 % oral gel 15 g, 15 g, Oral, PRN, Marion Perry MD dextrose 50 % IV solution 12.5 g, 12.5 g, Intravenous, PRN OR dextrose 50 % IV solution 25 g, 25 g, Intravenous, PRN, Marion Perry MD Fluticasone-Salmeterol (AIRDUO RESPICLICK) 232-14 MCG/ACT inhaler 1 puff, 1 puff, Inhalation, RT BID, Marion Perry MD, 1 puff at 11/04/22 0831 gabapentin (NEURONTIN) capsule 200 mg, 200 mg, Oral, 3 times per day, Marion Perry MD, 200 mgat 11/04/22 0818 glipiZIDE (GLUCOTROL) tablet 5 mg, 5 mg, Oral, Once a day, Soto Meng MD, 5 mg at 11/04/22 0820 glucagon injection reconstituted solution 1 mg, 1 mg, Intramuscular, PRN, Marion Perry MD hemorrhoidal ointment, , Apply externally, TID PRN, Marion Perry MD, Given at 10/30/22 1342 heparin (porcine) injection 5,000 Units, 5,000 Units, Subcutaneous, Q8H BERNARDO, Marion Perry MD,5,000 Units at 11/04/22 0623 ibuprofen (MOTRIN) tablet 200 mg, 200 mg, Oral, Q6H PRN, Carolina Garibay MD insulin lispro injection 0-12 Units, 0-12 Units, Subcutaneous, 2 times per day AND POCT glucose, , , BID AC, Soto Meng MD ipratropium-albuterol (DUO-NEB) 0.5-2.5 mg/3 mL nebulizer solution 3 mL, 3 mL, Inhalation, Q 4 hours PRN, Marion Perry MD, 3 mL at 11/02/22 2344 ketoconazole (NIZORAL) 2 % cream, , Topical, Once a day, Shorty Menard DPM lidocaine (LIDOCARE) 4 % patch 1 patch, 1 patch, Transdermal, Once a day, Marion Perry MD, 1 patch at 11/04/22 0818 lidocaine (XYLOCAINE) 1 % injection 8 mL, 8 mL, Other, Once, Carolina Garibay MD losartan (COZAAR) tablet 25 mg, 25 mg, Oral, Once a day, Valencia Johnson MD, 25 mg at 11/04/22 0819 melatonin tablet 9 mg, 9 mg, Oral, Nightly, Marion Perry MD, 9 mg at 11/03/22 204 oxyCODONE (ROXICODONE) immediate release tablet 5 mg, 5 mg, Oral, Q4H PRN, Carolina Garibay MD polyethylene glycol (MIRALAX) packet 17 g, 17 g, Oral, BID PRN, Carolina Garibay MD rosuvastatin (CRESTOR) tablet 40 mg, 40 mg, Oral, Once a day, Marion Perry MD, 40 mg at 11/04/22 0818 simethicone (MYLICON) chewable tablet 80 mg, 80 mg, Oral, 4x Daily PRN, Marion Perry MD, 80 mg at 10/31/22 1818 sodium chloride 0.9 % infusion, 100 mL/hr, Intravenous (Continuous Infusion), Continuous, Marion Perry MD, Last Rate: 100 mL/hr at 11/04/22 0731, 100 mL/hr at 11/04/22 0731 tamsulosin (FLOMAX) 24 hr capsule 0.4 mg, 0.4 mg, Oral, After Breakfast, Marion Perry MD, 0.4mg at 11/04/22 0819 triamcinolone acetonide (KENALOG-40) injection 40 mg, 40 mg, Intra-articular, Once, Carolina Garibay MD Umeclidinium [place] (INCRUSE ELLIPTA) 62.5 MCG/ACT inhaler 62.5 mcg, 1 puff, Inhalation, RT Daily,Marion Perry MD, 62.5 mcg at 11/04/22 0832 Review of Systems: Review of Systems Constitutional: Positive for fatigue. HENT: Negative for congestion. Eyes: Negative for discharge. Respiratory: Negative for apnea. Cardiovascular: Positive for leg swelling. Gastrointestinal: Negative for abdominal distention. Genitourinary: Negative for difficulty urinating. Musculoskeletal: Positive for arthralgias. Skin: Negative for color change. Neurological: Positive for weakness. Psychiatric/Behavioral: The patient is nervous/anxious. Physical Exam Vitals: 11/04/22 0731 BP: 119/58 Pulse: 53 Resp: 18 Temp: 97.4 ??F (36.3 ??C) SpO2: 94% Physical Exam Constitutional: General: He is not in acute distress. HENT: Head: Atraumatic. Eyes: Conjunctiva/sclera: Conjunctivae normal. Cardiovascular: Rate and Rhythm: Normal rate. Pulmonary: Effort: Pulmonary effort is normal. Abdominal: General: There is no distension. Skin: Findings: No erythema. Neurological: Coordination: Coordination abnormal. Neurologic Exam Mental Status Oriented to person. Lab Data Reviewed current lab results available to me today. Lab Results Component Value Date WBC 7.2 11/02/2022 HGB 9.3 (L) 11/02/2022 HCT 29.1 (L) 11/02/2022 MCV 93.3 11/02/2022 PLT 272 11/02/2022 Lab Results Component Value Date GLUCOSE 110 (H) 11/02/2022 CALCIUM 9.2 11/02/2022 NA 140 11/02/2022 K 4.8 11/02/2022 CO2 18 (L) 11/02/2022 CL 112 (H) 11/02/2022 BUN 27 (H) 11/02/2022 CREATININE 1.23 11/02/2022 ANIONGAP 10 11/02/2022 Imaging Reviewed current imaging results available to me today. No results found. Assessment & Plan: Esperanza Chaparro is a 67 y.o. male patient with Cerebrovascular accident functional impairment for rehab Cerebrovascular accident L sided hemiplegia ( dense ) Left face droop Dysarthria - on aspirin, Plavix 90 days, statin - gabapentin for neuropathy, 200 mg t.i.d., scheduled Tylenol PT, OT for gait training and ADL training, Nursing for bowel and bladder care. Speech therapy for swallow evaluation and cognitive evaluation. Skin/Wounds: - Skin integrity and Pressure ulcer prevention: frequent repositioning and adequate pressure relief. Maintain clean, dry skin. If needed, q2 hour turns when in bed and regular skin checks, application of protective barrier cream, toileting schedule. Wound RN consult Bowel & Bladder - monitor bowel movement - adjust scheduled and PRN bowel regimen as needed - monitor for adequate urinary output - should suspicion for urinary retention arise, PVR of random bladder scan will be performed for further assessment Continue current medical management. RECOMMENDATIONS At the current time, this inpatient hospital rehabilitation stay is medically necessary to achieve important health and functional goals. The patient requires frequent physician visits, 24-hour rehabilitation nursing, and a coordinated intensive rehabilitation program as described above to address complex medical, nursing, and rehabilitation needs. Continue inpatient comprehensive interdisciplinary rehabilitation to address strengthening, mobility skills, self care, cognitive functioning, speech, communication and swallowing needs. The patient continues to require the interdisciplinary team approach and 24 hour monitoring. DIET: Dietary Orders (From admission, onward) Start Ordered 10/29/22 1700 Nutritional supplement Oral 3 times daily with meals Comments: Send vanilla ensure high protein TID End/Expires: Until Specified Question Answer Comment Administration Route: Oral Place order in third constitution party system. Done 10/29/22 1346 10/28/222 Adult Diet Regular; 6 Soft & Bite-Sized (NDD III); 0 Thin (All Liquids) Diet effective now End/Expires: Until Specified References: [facility] Website Question Answer Comment Diet Type: Regular Diet Texture: 6 Soft & Bite-Sized (NDD III) Liquid Consistency: 0 Thin (All Liquids) Place order in third constitution party system. 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 On modified diet On IVF per IM # Gout : Stable On PRN Ibuprofen # DMII - Lantus Jardiance, SSI # HTN - continue amlodipine and losartan #CAD s/p PCI - continue ASA, statin # COPD - home inhalers, duonebs prn # Pain: Oxy and Lidoderm [facility]: SNF vs [facility] GARIBAY MD * Edenilson Jules RN - 11/03/2022 6:18 PM CDT Patient was weak today, some mod to acute pain during the day, AOX3,bladder scan done twice, no straight cath needed, poor appetite, * Soto Meng MD - 11/03/2022 5:19 PM CDT ENDOCRINOLOGY progress note Patient Name: Esperanza Chaparro : 1955 Medical Record: [id number] DATE OF SERVICE 11/03/2022 PRIMARY CARE PHYSICIAN No primary care provider on file. ATTENDING PHYSICIAN Carolina Garibay MD CONSULTING PHYSICIAN SOTO MENG MD Follow-up Follow up for type 2 diabetes uncontrolled, glucoses are variable Increased body weight, occasional sliding-scale insulin use. He is unable to give history, status post CVA Noted to have low vitamin-D on lab testing this admission.- replacement added, Urinary incontinence- Jardiance discontinued. HISTORY OF PRESENT ILLNESS The patient is a 67 y.o. y/o male with past medical history of CAD, COPD , hypertension, diabetes, sleep apnea, colon cancer s/p colectomy transferred to [facility] ER for neuro deficits Imaging confirmed Acute on chronic Rt MCA and SHEA ischemic stroke. Pt got tPA in ER and was admitted to neuro ICU. Pt kept on ASA, Plavix (to complete 90 days-EOT 01/18/23), Statin, Jardiance, Seen by neurology , secondary stroke work up completed . pt finished course of Unasyn for peritonsillar abscess. evaluated by therapy and recommend rehab for functional deficits. admitted to [facility] acute inpatient rehab for medical management and rehab PAST MEDICAL HISTORY Past Medical History: Diagnosis Date Cancer Heart disease Stroke PAST SURGICAL HISTORY Past Surgical History: Procedure Laterality Date CARDIAC SURGERY COLON SURGERY HERNIA REPAIR ALLERGIES Allergies Allergen Reactions Hydralazine Nausea And Vomiting Metformin Diarrhea Pioglitazone Nausea And Vomiting Lisinopril Rash Simvastatin Rash Pt reports hot flashes HOME MEDICATIONS Prior to Admission medications Medication Sig Start Date End Date Taking? Authorizing Provider Brinzolamide-Brimonidine 1-0.2 % suspension Administer 1 drop into both eyes 3 (three) times a day.Yes Historical Provider, budesonide-formoterol (SYMBICORT) 160-4.5 MCG/ACT inhaler Inhale 2 puffs RT 2 (two) times a day. Yes Historical Provider, cabergoline (DOSTINEX) 0.5 MG tablet Take 0.5 tablets (0.25 mg total) by mouth 2 (two) times a week. Yes Historical Provider, carboxymethylcellulose (Carboxymethylcellulose Sodium) solution Apply 1 drop (0.05 mL total) to both eyes 4 (four) times a day as needed for dry eyes. Yes Historical Provider, ergocalciferol (vitamin D2, Ergocalciferol,) 1.25 MG (15842 UT) capsule Take 1 capsule (50,000 Units total) by mouth once a week. Yes Historical Provider, melatonin tablet Take 8 tablets (8 mg total) by mouth nightly. Yes Historical Provider, Tiotropium [place] Monohydrate (Spiriva Respimat) 2.5 MCG/ACT aerosol solution Inhale 2 puffs (5 mcg total) RT Daily. Yes Historical Provider, CURRENT MEDICATIONS Current Facility-Administered Medications: acetaminophen (TYLENOL) tablet 650 mg, 650 mg, Oral, Q8H BERNARDO, Marion Perry MD, 650 mg at 11/03/22 1544 Alogliptin Benzoate (NESINA) tablet 12.5 mg, 12.5 mg, Oral, Once a day, Soto Meng MD, 12.5 mg at11/03/22 0829 aspirin EC tablet 81 mg, 81 mg, Oral, Once a day, Marion Perry MD, 81 mg at 11/03/22 0829 bismuth subsalicylate (PEPTO BISMOL) 262 MG/15ML suspension 30 mL, 30 mL, Oral, Q6H PRN, Marion Perry MD calcium carbonate (TUMS) chewable tablet 1,000 mg, 1,000 mg, Oral, Q2H PRN, Marion Perry MD, 1,000 mg at 11/01/22 1313 carvedilol (COREG) tablet 3.125 mg, 3.125 mg, Oral, 2 times per day, Raul Vo MD, 3.125 mg at11/03/22 0828 nicotine (NICODERM CQ) patch 21 mg, 21 mg, Transdermal, Once a day, 21 mg at 11/03/22 0828 AND Check Patch Placement, , Transdermal, 2 times per day, Marion Perry MD, Check Patch Placement at 11/03/22 0831 cholecalciferol (VITAMIN D3) capsule 50,000 Units, 50,000 Units, Oral, Weekly, Soto Meng MD, 50,000 Units at 10/30/22 1100 clopidogrel (PLAVIX) tablet 75 mg, 75 mg, Oral, Once a day, Marion Perry MD, 75 mg at 11/03/22 0828 cyclobenzaprine (FLEXERIL) tablet 5 mg, 5 mg, Oral, TID PRN, Raul Vo MD, 5 mg at 11/01/22 1805 dextrose (GLUTOSE) 40 % oral gel 15 g, 15 g, Oral, PRN, Marion Perry MD dextrose 50 % IV solution 12.5 g, 12.5 g, Intravenous, PRN OR dextrose 50 % IV solution 25 g, 25 g, Intravenous, PRN, Marion Perry MD Fluticasone-Salmeterol (AIRDUO RESPICLICK) 232-14 MCG/ACT inhaler 1 puff, 1 puff, Inhalation, RT BID, Marion Perry MD, 1 puff at 11/03/22 0837 gabapentin (NEURONTIN) capsule 200 mg, 200 mg, Oral, 3 times per day, Marion Perry MD, 200 mgat 11/03/22 1545 glipiZIDE (GLUCOTROL) tablet 5 mg, 5 mg, Oral, Once a day, Soto Meng MD, 5 mg at 11/03/22 0829 glucagon injection reconstituted solution 1 mg, 1 mg, Intramuscular, PRN, Marion Perry MD hemorrhoidal ointment, , Apply externally, TID PRN, Marion Perry MD, Given at 10/30/22 1342 heparin (porcine) injection 5,000 Units, 5,000 Units, Subcutaneous, Q8H BERNARDO, Marion Perry MD,5,000 Units at 11/03/22 1544 ibuprofen (MOTRIN) tablet 200 mg, 200 mg, Oral, Q6H PRN, Carolina Garibay MD insulin lispro injection 0-12 Units, 0-12 Units, Subcutaneous, TID AC, 4 Units at 11/03/22 1226 AND POCT glucose, , , TID AC, Soto Meng MD ipratropium-albuterol (DUO-NEB) 0.5-2.5 mg/3 mL nebulizer solution 3 mL, 3 mL, Inhalation, Q 4 hours PRN, Marion Perry MD, 3 mL at 11/02/22 2344 lidocaine (LIDOCARE) 4 % patch 1 patch, 1 patch, Transdermal, Once a day, Marion Perry MD, 1 patch at 11/03/22 0830 lidocaine (XYLOCAINE) 1 % injection 8 mL, 8 mL, Other, Once, Carolina Garibay MD losartan (COZAAR) tablet 25 mg, 25 mg, Oral, Once a day, Valencia Johnson MD, 25 mg at 11/03/22 0830 melatonin tablet 9 mg, 9 mg, Oral, Nightly, Marion Perry MD, 9 mg at 11/02/22 2138 oxyCODONE (ROXICODONE) immediate release tablet 5 mg, 5 mg, Oral, Q4H PRN, Carolina Garibay MD rosuvastatin (CRESTOR) tablet 40 mg, 40 mg, Oral, Once a day, Marion ePrry MD, 40 mg at 11/03/22 08 simethicone (MYLICON) chewable tablet 80 mg, 80 mg, Oral, 4x Daily PRN, Marion Perry MD, 80 mg at 10/31/22 1818 sodium chloride 0.9 % infusion, 100 mL/hr, Intravenous (Continuous Infusion), Continuous, Marion Perry MD, Last Rate: 100 mL/hr at 11/03/22 1548, 100 mL/hr at 11/03/22 1548 tamsulosin (FLOMAX) 24 hr capsule 0.4 mg, 0.4 mg, Oral, After Breakfast, Marion Perry MD, 0.4mg at 11/03/22 0827 triamcinolone acetonide (KENALOG-40) injection 40 mg, 40 mg, Intra-articular, Once, Carolina Garibay MD Umeclidinium [place] (INCRUSE ELLIPTA) 62.5 MCG/ACT inhaler 62.5 mcg, 1 puff, Inhalation, RT Daily,Marion Perry MD, 62.5 mcg at 11/03/22 0837 CURRENT DIET Dietary Orders (From admission, onward) Start Ordered 10/29/22 1700 Nutritional supplement Oral 3 times daily with meals Comments: Send vanilla ensure high protein TID End/Expires: Until Specified Question Answer Comment Administration Route: Oral Place order in third constitution party system. Done 10/29/22 1346 10/28/22 2112 Adult Diet Regular; 6 Soft & Bite-Sized (NDD III); 0 Thin (All Liquids) Diet effective now End/Expires: Until Specified References: [facility]DSI Website Question Answer Comment Diet Type: Regular Diet Texture: 6 Soft & Bite-Sized (NDD III) Liquid Consistency: 0 Thin (All Liquids) Place order in third constitution party system. Done 10/28/222110 SOCIAL HISTORY reports that he has been smoking cigarettes. He started smoking about 40 years ago. He has a 15.00 pack-year smoking history. He has been exposed to tobacco smoke. He has never used smokeless tobacco. He reports that he does not drink alcohol and does not use drugs. FAMILY HISTORY Family History Problem Relation Age of Onset No Known Problems Mother No Known Problems Father No Known Problems Sister No Known Problems Brother REVIEW OF SYSTEMS General: no weight loss, no fever, no chills, no anorexia Review of system is not available Intake/Output Summary (Last 24 hours) at 11/03/2022 1719 Last data filed at 11/03/2022 1300 Gross per 24 hour Intake 720 ml Output 500 ml Net 220 ml PHYSICAL EXAM Vital Signs: Temp: [97.8 ??F (36.6 ??C)-98.4 ??F (36.9 ??C)] 98.4 ??F (36.9 ??C) Pulse: [54-69] 69 Resp: [17-19] 19 BP: (100-146)/(45-70) 100/64 230 lb (104.3 kg)5' 11 (1.803 m)Body mass index is 32.08 kg/m??. Constitutional: Healthy, no distress HENT: Normocephalic, Atraumatic, Bilateral external ears normal, Oropharynx moist, No oral exudates, No tenderness, neck supple. Eyes: PERRL, EOMI, Conjunctiva normal, No discharge. Lymphatic: No cervical or supraclavicular lymphadenopathy noted. Cardiovascular: Normal heart rate, Normal rhythm, No murmurs, No rubs, No gallops. Respiratory: Normal breath sounds, No respiratory distress, No wheezing, No rhonchi, No rales, No chest tenderness. GI: Bowel sounds normal, Soft, No tenderness, No rebound or guarding, No masses. Integument: Warm, Dry, No erythema, No rash. LABS Most recent labs reviewed. POC Glucose POC Glucose 11/03/22 1608 124 11/03/22 1206 224 11/03/22 0621 113 11/02/22 2135 112 Recent Labs Lab Units 11/02/22 0022 WBC X(10)9/L BLOOD x10E9/L 7.2 HGB GM/DL BLOOD gm/dL 9.3* HCT % BLOOD % 29.1* MCV FL BLOOD fl 93.3 MCH PG BLOOD pg 29.8 MCHC GM/DL BLOOD gm/dL 32.0 RDW-CV % BLOOD % 13.8 MPV FL BLOOD fl 9.[address] X(10)9/L BLOOD x10E9/L 272 Recent Labs Lab Units 11/02/22 0022 10/31/22 0628 10/29/22 0532 SODIUM MMOL/L BLOOD mmol/L 140 142 141 POTASSIUM MMOL/L BLOOD mmol/L 4.8 4.8 4.8 CHLORIDE mmol/L 112* 111* 110* CO2 mmol/L 18* 23 21* BUN MG/DL BLOOD mg/dL 27* 35* 42* ANION GAP BLOOD mmol/L 10 8 10 CREATININE mg/dL 1.23 1.28* 1.58* GLUCOSE MG/DL BLOOD mg/dL 110* 122* 160* CALCIUM MG/DL BLOOD mg/dL 9.2 9.7 9.6 Latest Reference Range & Units 10/30/22 02:05 Vitamin B12 pg/mL Blood 213 - 816 pg/mL 395 Vitamin D, 25-Hydroxy 30 - 100 ng/mL 18.0 (L) (L): Data is abnormally low IMAGING STUDIES & OTHER STUDIES Not applicable ASSESSMENT Principal Problem: Cerebrovascular accident Active Problems: Dysphagia Type 2 diabetes uncontrolled Increased body weight, vitamin-D deficiency PLAN added glipizide, nesina Discontinued Jardiance in view of urinary incontinence. Optimize vitamin-D Review outside records as available Rehab per protocol Diet per nutrition services We will follow with you while The plan was discussed with the patient and/or family. Electronically signed by: SOTO MENG MD, 11/03/2022 5:19 PM CDT * Raul Vo MD - 11/03/2022 2:21 PM CDT HOSPITALIST PROGRESS NOTE Patient Name: Esperanza Chaparro : 1955 Medical Record: [id number] ATTENDING Carolina Garibay MD SUBJECTIVE 10/30 The patient is being seen for follow-up of Cerebrovascular accident. BP, BS , HR, labs, strength. .Chief Complaint Renal 42/1.5 Hr 50s BP low DC norvasc Decrease dose of coreg and cozaar strength improving, able to do therapy ok. No chest pain, no SOB, no dizziness, no palpitations, no new neurologic symptoms. No cough, No nausea or vomiting, No abdominal pain. History also obtained from Nurse and staff about how the patient did overnight and during the day strength improving, able to do therapy ok. Brief 10/31: Patient seen and examined this morning. Patient complaining of uncontrolled pain. Follow up with PM&R for further recommendations. Continue current medical management. 11/01: Patient seen and examined this afternoon. Patient continues to complain of uncontrolled pain.Follow up with PM&R for further recommendations. Have placed orders for Flexeril 5 mg TID PRN. Continue current medical management. 11/02: Patient seen and examined this morning. Patient complaining of uncontrolled pain. Follow up with PM&R for further recommendations. Patient has been having great toe pain. Possibly patient has gout. Follow up uric acid. Follow up Podiatry further recommendations regarding foot care. Continue current medical management. 11/03:Patient seen and examined this morning. Vitals and labs reviewed. Resting comfortably. No acute events overnight. Continue current medical management. istory Patient is a [age]-year-old male with past medical history of CAD, COPD, hypertension, diabetes, sleep apnea, colon cancer status post colectomy who was transferred to [facility] with new neurological deficits. Imaging confirmed acute on chronic right MCA and SHEA stroke. Patient did receive tPA in the ER. Patient was admitted to the neuro ICU. Patient's clinical condition stabilized. Patient was kept on aspirin Plavix for 90 days. Patient was started on statin. Patient is on Jardiance. Secondary stroke workup was completed. Patient also did complete a course of Unasyn for peritonsillar abscess. Patient worked with physical therapy and occupational therapy. Acute inpatient rehab was recomme nded. HOME Medications Prior to Admission medications Medication Sig Start Date End Date Taking? Authorizing Provider DelmiBrimonidine 1-0.2 % suspension Administer 1 drop into both eyes 3 (three) times a day.Yes Historical Provider, budesonide-formoterol (SYMBICORT) 160-4.5 MCG/ACT inhaler Inhale 2 puffs RT 2 (two) times a day. Yes Historical Provider, cabergoline (DOSTINEX) 0.5 MG tablet Take 0.5 tablets (0.25 mg total) by mouth 2 (two) times a week. Yes Historical Provider, carboxymethylcellulose (Carboxymethylcellulose Sodium) solution Apply 1 drop (0.05 mL total) to both eyes 4 (four) times a day as needed for dry eyes. Yes Historical Provider, ergocalciferol (vitamin D2, Ergocalciferol,) 1.25 MG (53685 UT) capsule Take 1 capsule (50,000 Units total) by mouth once a week. Yes Historical Provider, melatonin tablet Take 8 tablets (8 mg total) by mouth nightly. Yes Historical Provider, Tiotropium [place] Monohydrate (Spiriva Respimat) 2.5 MCG/ACT aerosol solution Inhale 2 puffs (5 mcg total) RT Daily. Yes Historical Provider, CURRENT Medications Current Facility-Administered Medications: acetaminophen (TYLENOL) tablet 650 mg, 650 mg, Oral, Q8H BERNARDO, Marion Perry MD, 650 mg at 11/03/22 0538 Alogliptin Benzoate (NESINA) tablet 12.5 mg, 12.5 mg, Oral, Once a day, Soto Meng MD, 12.5 mg at11/03/22 0829 aspirin EC tablet 81 mg, 81 mg, Oral, Once a day, Marion Perry MD, 81 mg at 11/03/22 0829 bismuth subsalicylate (PEPTO BISMOL) 262 MG/15ML suspension 30 mL, 30 mL, Oral, Q6H PRN, Marion Perry MD calcium carbonate (TUMS) chewable tablet 1,000 mg, 1,000 mg, Oral, Q2H PRN, Marion Perry MD, 1,000 mg at 11/01/22 1313 carvedilol (COREG) tablet 3.125 mg, 3.125 mg, Oral, 2 times per day, Raul Vo MD, 3.125 mg at11/03/22 0828 nicotine (NICODERM CQ) patch 21 mg, 21 mg, Transdermal, Once a day, 21 mg at 11/03/22 0828 AND Check Patch Placement, , Transdermal, 2 times per day, Marion Perry MD, Check Patch Placement at 11/03/22 0831 cholecalciferol (VITAMIN D3) capsule 50,000 Units, 50,000 Units, Oral, Weekly, Soto Meng MD, 50,000 Units at 10/30/22 1100 clopidogrel (PLAVIX) tablet 75 mg, 75 mg, Oral, Once a day, Marion Perry MD, 75 mg at 11/03/22 0828 cyclobenzaprine (FLEXERIL) tablet 5 mg, 5 mg, Oral, TID PRN, Raul Vo MD, 5 mg at 11/01/22 1805 dextrose (GLUTOSE) 40 % oral gel 15 g, 15 g, Oral, PRN, Marion Perry MD dextrose 50 % IV solution 12.5 g, 12.5 g, Intravenous, PRN OR dextrose 50 % IV solution 25 g, 25 g, Intravenous, PRN, Marion Perry MD Fluticasone-Salmeterol (AIRDUO RESPICLICK) 232-14 MCG/ACT inhaler 1 puff, 1 puff, Inhalation, RT BID, Marion Perry MD, 1 puff at 11/03/22 0837 gabapentin (NEURONTIN) capsule 200 mg, 200 mg, Oral, 3 times per day, Marion Perry MD, 200 mgat 11/03/22 0826 glipiZIDE (GLUCOTROL) tablet 5 mg, 5 mg, Oral, Once a day, Soto Megn MD, 5 mg at 11/03/22 0829 glucagon injection reconstituted solution 1 mg, 1 mg, Intramuscular, PRN, Marion Perry MD hemorrhoidal ointment, , Apply externally, TID PRN, Marion Perry MD, Given at 10/30/22 1342 heparin (porcine) injection 5,000 Units, 5,000 Units, Subcutaneous, Q8H BERNARDO, Marion Perry MD,5,000 Units at 11/03/22 0538 ibuprofen (MOTRIN) tablet 200 mg, 200 mg, Oral, Q6H PRN, Carolina Garibay MD insulin lispro injection 0-12 Units, 0-12 Units, Subcutaneous, TID AC, 4 Units at 11/03/22 1226 AND POCT glucose, , , TID AC, Soto Meng MD ipratropium-albuterol (DUO-NEB) 0.5-2.5 mg/3 mL nebulizer solution 3 mL, 3 mL, Inhalation, Q 4 hours PRN, Marion Perry MD, 3 mL at 11/02/22 2344 lidocaine (LIDOCARE) 4 % patch 1 patch, 1 patch, Transdermal, Once a day, Marion Perry MD, 1 patch at 11/03/22 0830 lidocaine (XYLOCAINE) 1 % injection 8 mL, 8 mL, Other, Once, Carolina Garibay MD losartan (COZAAR) tablet 25 mg, 25 mg, Oral, Once a day, Valencia Johnson MD, 25 mg at 11/03/22 0830 melatonin tablet 9 mg, 9 mg, Oral, Nightly, Marion Perry MD, 9 mg at 11/02/22 2138 oxyCODONE (ROXICODONE) immediate release tablet 5 mg, 5 mg, Oral, Q4H PRN, Carolina Garibay MD rosuvastatin (CRESTOR) tablet 40 mg, 40 mg, Oral, Once a day, Marion Perry MD, 40 mg at 11/03/22 0827 simethicone (MYLICON) chewable tablet 80 mg, 80 mg, Oral, 4x Daily PRN, Marion Perry MD, 80 mg at 10/31/22 1818 sodium chloride 0.9 % infusion, 100 mL/hr, Intravenous (Continuous Infusion), Continuous, Marion Perry MD, Last Rate: 100 mL/hr at 11/03/22 1123, 100 mL/hr at 11/03/22 1123 tamsulosin (FLOMAX) 24 hr capsule 0.4 mg, 0.4 mg, Oral, After Breakfast, Marion Perry MD, 0.4mg at 11/03/22 0827 triamcinolone acetonide (KENALOG-40) injection 40 mg, 40 mg, Intra-articular, Once, Carolina Garibay MD Umeclidinium [place] (INCRUSE ELLIPTA) 62.5 MCG/ACT inhaler 62.5 mcg, 1 puff, Inhalation, RT Daily,Marion Perry MD, 62.5 mcg at 11/03/22 0837 DATA Vitals: 11/02/22 2344 11/03/22 0554 11/03/22 0601 11/03/22 0708 BP: 100/64 Pulse: 69 Resp: 19 Temp: 98.4 ??F (36.9 ??C) TempSrc: Oral SpO2: 92% 99% 99% 95% Weight: Height: POC Glucose POC Glucose 11/03/22 1206 224 11/03/22 0621 113 11/02/22 2135 112 11/02/22 1618 103 Weights (last 3 days) Date/Time Weight 10/31/22 2302 230 lb (104.3 kg) @ANTICOAGSUMMARY@ @FLOWDATE(2706:LAST)@ Intake/Output Summary (Last 24 hours) at 11/03/2022 1421 Last data filed at 11/03/2022 1300 Gross per 24 hour Intake 840 ml Output -- Net 840 ml PHYSICAL EXAM General appearance: awake, alert, cooperative, no distress HEENT: Normocephalic, No icterus, No oral lesions, Oral and nasal mucosa moist Neck: Supple, no lymphadenopathy Eyes: EOMI, Conjunctiva normal, No discharge Cardiovascular: Normal heart rate, Normal rhythm, No murmurs, No rubs, No gallops Respiratory: Normal breath sounds, No respiratory distress, No wheezing, No rhonchi, No rales, No chest tenderness. GI: Bowel sounds normal, Soft, No tenderness, No rebound or guarding, No masses. Abdomen: soft without mass, non-tender, with normal bowel sounds Extremities: no clubbing, cyanosis or edema, no calf tenderness Musculoskeletal:no swelling of joints.no redness Psychologic: Mood ok, no suicidal ideation. 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 LABS CBC with Differential: Lab Results Component Value Date WBC 7.2 11/02/2022 HGB 9.3 (L) 11/02/2022 HCT 29.1 (L) 11/02/2022 PLT 272 11/02/2022 MCV 93.3 11/02/2022 MCH 29.8 11/02/2022 MCHC 32.0 11/02/2022 RDW 13.8 11/02/2022 [ BMP: Lab Results Component Value Date NA 140 11/02/2022 K 4.8 11/02/2022 CL 112 (H) 11/02/2022 CO2 18 (L) 11/02/2022 BUN 27 (H) 11/02/2022 CREATININE 1.23 11/02/2022 GLUCOSE 110 (H) 11/02/2022 CALCIUM 9.2 11/02/2022 ANIONGAP 10 11/02/2022 MG/PHOS: No results found for: MG, PHOS CKMB: No components found for: CKMB;2 PT/INR: No results found for: LABPROT, INR BNP: No results found for: BNP Last 3 Troponin: No components found for: TROPONINI;3 U/A: No results found for: COLORU, CLARITYU, GLUCOSEU, BILIRUBINUR, KETONESU, SPECGRAV, BLOODU, PHUR, UROBILINOGEN, NITRITE, LEUKOCYTESUR, MUCUS, RBCUA, WBCUA CMP: Lab Results Component Value Date NA 140 11/02/2022 K 4.8 11/02/2022 CL 112 (H) 11/02/2022 CO2 18 (L) 11/02/2022 BUN 27 (H) 11/02/2022 CREATININE 1.23 11/02/2022 GLUCOSE 110 (H) 11/02/2022 CALCIUM 9.2 11/02/2022 ANIONGAP 10 11/02/2022 LFT's: No results found for: ALB, PROT Ionized Calcium: No components found for: IONCA ABG: No results found for: PHART, JPY6ROQ, PO2ART, [id number], BEART, A6XNDMGO HgBA1c: No results found for: HGBA1C Lipid Panel: No results found for: CHOL, TRIG, HDL TSH: No results found for: TSH Lab Results Component Value Date GLUCOSE 110 (H) 11/02/2022 BUN 27 (H) 11/02/2022 CREATININE 1.23 11/02/2022 NA 140 11/02/2022 K 4.8 11/02/2022 CL 112 (H) 11/02/2022 CO2 18 (L) 11/02/2022 CALCIUM 9.2 11/02/2022 @RESU CBC: Recent Labs Lab Units 11/02/22 0022 WBC X(10)9/L BLOOD x10E9/L 7.2 HGB GM/DL BLOOD gm/dL 9.3* PLT CT X(10)9/L BLOOD x10E9/L 272 MCV FL BLOOD fl 93.3 BMP: Recent Labs Lab Units 11/02/22 0022 SODIUM MMOL/L BLOOD mmol/L 140 POTASSIUM MMOL/L BLOOD mmol/L 4.8 CHLORIDE mmol/L 112* CO2 mmol/L 18* BUN MG/DL BLOOD mg/dL 27* CREATININE mg/dL 1.23 GLUCOSE MG/DL BLOOD mg/dL 110* CALCIUM MG/DL BLOOD mg/dL 9.2 I reviewed the EKG tracing/Xray Recent Labs Lab Units 11/02/22 0022 SODIUM MMOL/L BLOOD mmol/L 140 POTASSIUM MMOL/L BLOOD mmol/L 4.8 CHLORIDE mmol/L 112* CO2 mmol/L 18* BUN MG/DL BLOOD mg/dL 27* CREATININE mg/dL 1.23 GLUCOSE MG/DL BLOOD mg/dL 110* CALCIUM MG/DL BLOOD mg/dL 9.2 ANION GAP BLOOD mmol/L 10 ASSESSMENT AND PLAN Principal Problem: Cerebrovascular accident Active Problems: Dysphagia Acute CVA Patient found to have a right acute on chronic MCA stroke and a SHEA ischemic stroke Patient received tPA in the ER Patient was admitted to the neuro ICU Patient was started on aspirin and Plavix Secondary stroke workup was completed Patient will be on 90 days of aspirin Plavix, end date 01/18/2023 Continue physical therapy Continue occupational therapy Physical medicine physician to oversee overall rehab program Hypertension Continue amlodipine 10 mg daily Bp low- dc norvasc DC IVF Bradycardia Decrease dose of coreg Mild renal insufficiency JUST finished IVF Inc po fluids F/U labs CAD Continue aspirin, coreg, plavix COPD Continue airduo Dysphagia Speech therapy DVT prophylaxis Continue heparin Code status Full code D/W patient , and attending physician about test results and treatment plan .No family in the room.Patient requiring monitoring of BP and HR while doing 3 hour intensive exercises to avoid fluctuations and hypotension . Aswell as monitoring of nutritional and fluid status , by weights, leg edema .Notified staff and patient to notify me of any change inconditions or new problems * Carolina Garibay MD - 11/03/2022 11:58 AM CDT PM&R PROGRESS NOTE This is Face to Face Visit note Esperanza Chaparro is a 67 y.o. male patient. Slept well last night, mood better, C/O joint pain, benefit from therapy in rehab setting REVIEW OF FUNCTIONAL STATUS SM Functional Status PT Data (since 10/31/2022) Value Time User Bed Mobility Level of Assist Total Assistance/Dependent; Moderate Assistance 10/31/2022 9:53 AM Tania ePck PTA Bed Mobility Comment Rolling side to side x 8 reps for hygiene, lower body clothing management, and cee pad management. Rolling to right with maximal assist, rolling to left with moderate assist and use of bed-rail. Sit to/from supine dependent in cee lift. 10/31/2022 12:33 PM Tania Peck PTA Transfer to Bed 10/31/2022 9:53 AM Tania Peck, POULTRY PINNER Transfer from Wheelchair 10/31/2022 9:53 AM Tania Peck, POULTRY PINNER Transfer Level of Assist Total Assistance/Dependent 10/31/2022 9:53 AM Tania Peck, POULTRY PINNER WC Analysis Patient dependent in tilt-in space w/c 10/31/2022 12:33 PM Tania Peck PTA SM Functional Status OT Data (since 10/31/2022) Value Time User Toileting Total Assistance/Dependent 10/31/2022 1:03 PM Purvi Vinson OT Upper Body Dressing Moderate Assistance 10/31/2022 1:03 PM Purvi Vinson OT Bed/Chair/WC Transfer Total Assistance/Dependent 10/31/2022 1:03 PM Purvi Vinson OT SM 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 Data (since 10/31/2022) Value Time User Cognitive Communication Immediate memory; Short-term memory; Insight; Processing information of increased length or complexity; Semi-complex to complex attention; Task persistence; Word problems 11/03/2022 2:[address] [facility] Dysphagia Treatment Swallow strategy training; Oral care; Dysphagia diet training 11/03/2022 2:[address] [facility] Compensatory Swallow Techniques Small bites; Small sips; Eat slowly-control rate; Seated upright with all PO intake; Monitor oral spillage; Oral care post PO intake; Other (comment) Avoid large bore straw 11/03/2022 2:[address] [facility] Narrative 1. Patient was seen for therapy in his room, reclined in bed; alert initially but became increasingly lethargic as the session progressed. Patient's mother and sister were present during the session. 2. Patient participated in a complex topic of discussion regarding stroke prevention and stroke risk factors. The Stroke Risk Scorecard from the National Stroke Association was completed this date to increase patient understanding of risk factors associated with stroke. Lifestyle change recommendations and management were discussed with patient to promote a healthier lifestyle. Patient engaged in discussion regarding recommendations, demonstrating insight into deficits and appropriate reasoning skills with minimal assistance. The patient was given an opportunity to ask questions during this education session. Following education and discussion, patient was able to recall and state one risk factor associated with strokes (diet). 3. Patient solved basic math reasoning word problems with 3/6 correct + 2/6 with cues. 4. Patient was provided with instruction in performing oromotor resistance exercises for left facial weakness. Patient was able to move the left side of the face with effort. 5. Patient remained in his room with call light and phone left within reach. Bed alarm activated. Patient's mother and sister were present in the room. 11/03/2022 2:[address] [facility] Patient Active Problem List Diagnosis Cerebrovascular accident Chronic obstructive pulmonary disease Coronary arteriosclerosis Primary hypertension Dysphagia Past Medical History: Diagnosis Date Cancer Heart disease Stroke Current Facility-Administered Medications: acetaminophen (TYLENOL) tablet 650 mg, 650 mg, Oral, [facility]H [facility], Marion Perry MD, 650 mg at 11/03/22 0538 Alogliptin Benzoate (NESINA) tablet 12.5 mg, 12.5 mg, Oral, Once a day, Soto Meng MD, 12.5 mg at11/03/22 0829 aspirin EC tablet 81 mg, 81 mg, Oral, Once a day, Marion Perry MD, 81 mg at 11/03/22 0829 bismuth subsalicylate (PEPTO BISMOL) 262 MG/15ML suspension 30 mL, 30 mL, Oral, Q6H PRN, Marion Perry MD calcium carbonate (TUMS) chewable tablet 1,000 mg, 1,000 mg, Oral, Q2H PRN, Marion Perry MD, 1,000 mg at 11/01/22 1313 carvedilol (COREG) tablet 3.125 mg, 3.125 mg, Oral, 2 times per day, Raul Vo MD, 3.125 mg at11/03/22 0828 nicotine (NICODERM CQ) patch 21 mg, 21 mg, Transdermal, Once a day, 21 mg at 11/03/22 0828 AND Check Patch Placement, , Transdermal, 2 times per day, Marion Prery MD, Check Patch Placement at 11/03/22 0831 cholecalciferol (VITAMIN D3) capsule 50,000 Units, 50,000 Units, Oral, Weekly, Soto Meng MD, 50,000 Units at 10/30/22 1100 clopidogrel (PLAVIX) tablet 75 mg, 75 mg, Oral, Once a day, Marion Perry MD, 75 mg at 11/03/22 0828 cyclobenzaprine (FLEXERIL) tablet 5 mg, 5 mg, Oral, TID PRN, Raul Vo MD, 5 mg at 11/01/22 1805 dextrose (GLUTOSE) 40 % oral gel 15 g, 15 g, Oral, PRN, Marion Perry MD dextrose 50 % IV solution 12.5 g, 12.5 g, Intravenous, PRN OR dextrose 50 % IV solution 25 g, 25 g, Intravenous, PRN, Marion Perry MD Fluticasone-Salmeterol (AIRDUO RESPICLICK) 232-14 MCG/ACT inhaler 1 puff, 1 puff, Inhalation, RT BID, Marion Perry MD, 1 puff at 11/03/22 0837 gabapentin (NEURONTIN) capsule 200 mg, 200 mg, Oral, 3 times per day, Marion Perry MD, 200 mgat 11/03/22 0826 glipiZIDE (GLUCOTROL) tablet 5 mg, 5 mg, Oral, Once a day, Soto Meng MD, 5 mg at 11/03/22 0829 glucagon injection reconstituted solution 1 mg, 1 mg, Intramuscular, PRN, Marion Perry MD hemorrhoidal ointment, , Apply externally, TID PRN, Marion Perry MD, Given at 10/30/22 1342 heparin (porcine) injection 5,000 Units, 5,000 Units, Subcutaneous, Q8H BERNARDO, Marion Perry MD,5,000 Units at 11/03/22 0538 ibuprofen (MOTRIN) tablet 200 mg, 200 mg, Oral, Q6H PRN, Carolina Garibay MD insulin lispro injection 0-12 Units, 0-12 Units, Subcutaneous, TID AC, 4 Units at 11/03/22 1226 AND POCT glucose, , , TID AC, Soto Meng MD ipratropium-albuterol (DUO-NEB) 0.5-2.5 mg/3 mL nebulizer solution 3 mL, 3 mL, Inhalation, Q 4 hours PRN, Marion Perry MD, 3 mL at 11/02/22 2344 lidocaine (LIDOCARE) 4 % patch 1 patch, 1 patch, Transdermal, Once a day, Marion Perry MD, 1 patch at 11/03/22 0830 lidocaine (XYLOCAINE) 1 % injection 8 mL, 8 mL, Other, Once, Carolina Garibay MD losartan (COZAAR) tablet 25 mg, 25 mg, Oral, Once a day, Valencia Johnson MD, 25 mg at 11/03/22 0830 melatonin tablet 9 mg, 9 mg, Oral, Nightly, Marion Perry MD, 9 mg at 11/02/22 2138 oxyCODONE (ROXICODONE) immediate release tablet 5 mg, 5 mg, Oral, Q4H PRN, Carolina Garibay MD rosuvastatin (CRESTOR) tablet 40 mg, 40 mg, Oral, Once a day, Marion Perry MD, 40 mg at 11/03/22 0827 simethicone (MYLICON) chewable tablet 80 mg, 80 mg, Oral, 4x Daily PRN, Marion Perry MD, 80 mg at 10/31/22 1818 sodium chloride 0.9 % infusion, 100 mL/hr, Intravenous (Continuous Infusion), Continuous, Marion Perry MD, Last Rate: 100 mL/hr at 11/03/22 1123, 100 mL/hr at 11/03/22 1123 tamsulosin (FLOMAX) 24 hr capsule 0.4 mg, 0.4 mg, Oral, After Breakfast, Marion Perry MD, 0.4mg at 11/03/22 0827 triamcinolone acetonide (KENALOG-40) injection 40 mg, 40 mg, Intra-articular, Once, Carolina Garibay MD Umeclidinium [place] (INCRUSE ELLIPTA) 62.5 MCG/ACT inhaler 62.5 mcg, 1 puff, Inhalation, RT Daily,Marion Perry MD, 62.5 mcg at 11/03/22 0837 Review of Systems: Review of Systems Constitutional: Positive for fatigue. HENT: Negative for congestion. Eyes: Negative for discharge. Respiratory: Negative for apnea. Cardiovascular: Positive for leg swelling. Gastrointestinal: Negative for abdominal distention. Genitourinary: Negative for difficulty urinating. Musculoskeletal: Positive for arthralgias. Skin: Negative for color change. Neurological: Positive for weakness. Psychiatric/Behavioral: The patient is nervous/anxious. Physical Exam Vitals: 11/03/22 0708 BP: 100/64 Pulse: 69 Resp: 19 Temp: 98.4 ??F (36.9 ??C) SpO2: 95% Physical Exam Constitutional: General: He is not in acute distress. HENT: Head: Atraumatic. Eyes: Conjunctiva/sclera: Conjunctivae normal. Cardiovascular: Rate and Rhythm: Normal rate. Pulmonary: Effort: Pulmonary effort is normal. Abdominal: General: There is no distension. Skin: Findings: No erythema. Neurological: Coordination: Coordination abnormal. Neurologic Exam Mental Status Oriented to person. Lab Data Reviewed current lab results available to me today. Lab Results Component Value Date WBC 7.2 11/02/2022 HGB 9.3 (L) 11/02/2022 HCT 29.1 (L) 11/02/2022 MCV 93.3 11/02/2022 PLT 272 11/02/2022 Lab Results Component Value Date GLUCOSE 110 (H) 11/02/2022 CALCIUM 9.2 11/02/2022 NA 140 11/02/2022 K 4.8 11/02/2022 CO2 18 (L) 11/02/2022 CL 112 (H) 11/02/2022 BUN 27 (H) 11/02/2022 CREATININE 1.23 11/02/2022 ANIONGAP 10 11/02/2022 Imaging Reviewed current imaging results available to me today. No results found. Assessment & Plan: Esperanza Chaparro is a 67 y.o. male patient with Cerebrovascular accident functional impairment for rehab Cerebrovascular accident L sided hemiplegia ( dense ) Left face droop Dysarthria / severely affected from CVA - on aspirin, Plavix 90 days, statin - gabapentin for neuropathy, 200 mg t.i.d., scheduled Tylenol PT, OT for gait training and ADL training, Nursing for bowel and bladder care. Speech therapy for swallow evaluation and cognitive evaluation. Skin/Wounds: - Skin integrity and Pressure ulcer prevention: frequent repositioning and adequate pressure relief. Maintain clean, dry skin. If needed, q2 hour turns when in bed and regular skin checks, application of protective barrier cream, toileting schedule. Wound RN consult Bowel & Bladder - monitor bowel movement - adjust scheduled and PRN bowel regimen as needed - monitor for adequate urinary output - should suspicion for urinary retention arise, PVR of random bladder scan will be performed for further assessment Continue current medical management. RECOMMENDATIONS At the current time, this inpatient hospital rehabilitation stay is medically necessary to achieve important health and functional goals. The patient requires frequent physician visits, 24-hour rehabilitation nursing, and a coordinated intensive rehabilitation program as described above to address complex medical, nursing, and rehabilitation needs. Continue inpatient comprehensive interdisciplinary rehabilitation to address strengthening, mobility skills, self care, cognitive functioning, speech, communication and swallowing needs. The patient continues to require the interdisciplinary team approach and 24 hour monitoring. DIET: Dietary Orders (From admission, onward) Start Ordered 10/29/22 1700 Nutritional supplement Oral 3 times daily with meals Comments: Send vanilla ensure high protein TID End/Expires: Until Specified Question Answer Comment Administration Route: Oral Place order in third constitution party system. Done 10/29/22 1346 10/28/222111 Adult Diet Regular; 6 Soft & Bite-Sized (NDD III); 0 Thin (All Liquids) Diet effective now End/Expires: Until Specified References: IDDSI Website Question Answer Comment Diet Type: Regular Diet Texture: 6 Soft & Bite-Sized (NDD III) Liquid Consistency: 0 Thin (All Liquids) Place order in third constitution party system. 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 On modified diet On IVF per IM # Gout flare: Stable On PRN Ibuprofen # DMII - Lantus Jardiance, SSI # HTN - continue amlodipine and losartan #CAD s/p PCI - continue ASA, statin # COPD - home inhalers, duonebs prn Team Conference: 11/03/2022 Please refer to team conference note from today for details Case discussed with addiction social worker/ PT/OT/nursing . 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 ATTENDING PHYSICIAN Carolina Garibay MD CONSULTING PHYSICIAN SOTO MENG MD Follow-up Follow up for type 2 diabetes uncontrolled, glucoses are variable Increased body weight He is unable to give history, status post CVA Noted to have low vitamin-D on lab testing this admission.- replacement added, Urinary incontinence- Jardiance discontinued. HISTORY OF PRESENT ILLNESS The patient is a 67 y.o. y/o male with past medical history of CAD, COPD , hypertension, diabetes, sleep apnea, colon cancer s/p colectomy transferred to [facility] ER for neuro deficits Imaging confirmed Acute on chronic Rt MCA and SHEA ischemic stroke. Pt got tPA in ER and was admitted to neuro ICU. Pt kept on ASA, Plavix (to complete 90 days-EOT 01/18/23), Statin, Jardiance, Seen by neurology , secondary stroke work up completed . pt finished course of Unasyn for peritonsillar abscess. evaluated by therapy and recommend rehab for functional deficits. admitted to [facility] acute inpatient rehab for medical management and rehab PAST MEDICAL HISTORY Past Medical History: Diagnosis Date Cancer Heart disease Stroke PAST SURGICAL HISTORY Past Surgical History: Procedure Laterality Date CARDIAC SURGERY COLON SURGERY HERNIA REPAIR ALLERGIES Allergies Allergen Reactions Hydralazine Nausea And Vomiting Metformin Diarrhea Pioglitazone Nausea And Vomiting Lisinopril Rash Simvastatin Rash Pt reports hot flashes HOME MEDICATIONS Prior to Admission medications Medication Sig Start Date End Date Taking? Authorizing Provider Brinzolamide-Brimonidine 1-0.2 % suspension Administer 1 drop into both eyes 3 (three) times a day.Yes Historical Provider, budesonide-formoterol (SYMBICORT) 160-4.5 MCG/ACT inhaler Inhale 2 puffs RT 2 (two) times a day. Yes Historical Provider, cabergoline (DOSTINEX) 0.5 MG tablet Take 0.5 tablets (0.25 mg total) by mouth 2 (two) times a week. Yes Historical Provider, carboxymethylcellulose (Carboxymethylcellulose Sodium) solution Apply 1 drop (0.05 mL total) to both eyes 4 (four) times a day as needed for dry eyes. Yes Historical Provider, ergocalciferol (vitamin D2, Ergocalciferol,) 1.25 MG (56989 UT) capsule Take 1 capsule (50,000 Units total) by mouth once a week. Yes Historical Provider, melatonin tablet Take 8 tablets (8 mg total) by mouth nightly. Yes Historical Provider, Tiotropium [place] Monohydrate (Spiriva Respimat) 2.5 MCG/ACT aerosol solution Inhale 2 puffs (5 mcg total) RT Daily. Yes Historical Provider, CURRENT MEDICATIONS Current Facility-Administered Medications: acetaminophen (TYLENOL) tablet 650 mg, 650 mg, Oral, Q8H [facility], 650 mg at 11/02/22 0609 Alogliptin Benzoate (NESINA) tablet 12.5 mg, 12.5 mg, Oral, Once a day, Soto Meng MD, 12.5 mg at11/02/22 0826 aspirin EC tablet 81 mg, 81 mg, Oral, Once a day, Marion Perry MD, 81 mg at 11/02/22 0826 bismuth subsalicylate (PEPTO BISMOL) 262 MG/15ML suspension 30 mL, 30 mL, Oral, Q6H PRN, Marion Perry MD calcium carbonate (TUMS) chewable tablet 1,000 mg, 1,000 mg, Oral, Q2H PRN, Marion Perry MD, 1,000 mg at 11/01/22 1313 carvedilol (COREG) tablet 3.125 mg, 3.125 mg, Oral, 2 times per day, Raul Vo MD, 3.125 mg at11/02/22 0852 nicotine (NICODERM CQ) patch 21 mg, 21 mg, Transdermal, Once a day, 21 mg at 11/02/22 0851 AND Check Patch Placement, , Transdermal, 2 times per day, Marion Perry MD, Check Patch Placement at 11/02/22 0832 cholecalciferol (VITAMIN D3) capsule 50,000 Units, 50,000 Units, Oral, Weekly, Soto Meng MD, 50,000 Units at 10/30/22 1100 clopidogrel (PLAVIX) tablet 75 mg, 75 mg, Oral, Once a day, Marion Perry MD, 75 mg at 11/02/22 0827 cyclobenzaprine (FLEXERIL) tablet 5 mg, 5 mg, Oral, TID PRN, Raul Vo MD, 5 mg at 11/01/22 1805 dextrose (GLUTOSE) 40 % oral gel 15 g, 15 g, Oral, PRN, Marion Perry MD dextrose 50 % IV solution 12.5 g, 12.5 g, Intravenous, PRN OR dextrose 50 % IV solution 25 g, 25 g, Intravenous, PRN, Marion Perry MD Fluticasone-Salmeterol (AIRDUO RESPICLICK) 232-14 MCG/ACT inhaler 1 puff, 1 puff, Inhalation, RT BID, Marion Perry MD, 1 puff at 11/02/22 0849 gabapentin (NEURONTIN) capsule 200 mg, 200 mg, Oral, 3 times per day, Marion Perry MD, 200 mgat 11/02/22 0827 glipiZIDE (GLUCOTROL) tablet 5 mg, 5 mg, Oral, Once a day, Soto Meng MD, 5 mg at 11/02/22 0848 glucagon injection reconstituted solution 1 mg, 1 mg, Intramuscular, PRN, Marion Perry MD hemorrhoidal ointment, , Apply externally, TID PRN, Marion Perry MD, Given at 10/30/22 1342 heparin (porcine) injection 5,000 Units, 5,000 Units, Subcutaneous, Q8H BERNARDO, Marion Perry MD,5,000 Units at 11/02/22 0608 insulin lispro injection 0-12 Units, 0-12 Units, Subcutaneous, TID AC, 4 Units at 10/31/22 1523 AND POCT glucose, , , TID AC, Soto Meng MD ipratropium-albuterol (DUO-NEB) 0.5-2.5 mg/3 mL nebulizer solution 3 mL, 3 mL, Inhalation, Q 4 hours PRN, Marion Perry MD lidocaine (LIDOCARE) 4 % patch 1 patch, 1 patch, Transdermal, Once a day, Marion Perry MD, 1 patch at 11/02/22 0850 losartan (COZAAR) tablet 25 mg, 25 mg, Oral, Once a day, Valencia Johnson MD, 25 mg at 11/02/22 0830 melatonin tablet 9 mg, 9 mg, Oral, Nightly, Marion Perry MD, 9 mg at 11/01/22 212 oxyCODONE (ROXICODONE) immediate release tablet 5 mg, 5 mg, Oral, Q4H PRN, Marion Perry MD, 5mg at 11/02/22 0849 rosuvastatin (CRESTOR) tablet 40 mg, 40 mg, Oral, Once a day, Marion Perry MD, 40 mg at 11/02/22 0826 simethicone (MYLICON) chewable tablet 80 mg, 80 mg, Oral, 4x Daily PRN, Marion Perry MD, 80 mg at 10/31/22 1818 sodium chloride 0.9 % infusion, 100 mL/hr, Intravenous (Continuous Infusion), Continuous, Marion Perry MD, Last Rate: 100 mL/hr at 11/02/22 0329, 100 mL/hr at 11/02/22 0329 tamsulosin (FLOMAX) 24 hr capsule 0.4 mg, 0.4 mg, Oral, After Breakfast, Marion Perry MD, 0.4mg at 11/02/22 0825 Umeclidinium [place] (INCRUSE ELLIPTA) 62.5 MCG/ACT inhaler 62.5 mcg, 1 puff, Inhalation, RT Daily,Marion Perry MD, 62.5 mcg at 11/02/22 0849 CURRENT DIET Dietary Orders (From admission, onward) Start Ordered 10/29/22 1700 Nutritional supplement Oral 3 times daily with meals Comments: Send vanilla ensure high protein TID End/Expires: Until Specified Question Answer Comment Administration Route: Oral Place order in third constitution party system. Done 10/29/22 1346 10/28/222111 Adult Diet Regular; 6 Soft & Bite-Sized (NDD III); 0 Thin (All Liquids) Diet effective now End/Expires: Until Specified References: IDDSI Website Question Answer Comment Diet Type: Regular Diet Texture: 6 Soft & Bite-Sized (NDD III) Liquid Consistency: 0 Thin (All Liquids) Place order in third constitution party system. Done 10/28/222110 SOCIAL HISTORY reports that he has been smoking cigarettes. He started smoking about 40 years ago. He has a 15.00 pack-year smoking history. He has been exposed to tobacco smoke. He has never used smokeless tobacco. He reports that he does not drink alcohol and does not use drugs. FAMILY HISTORY Family History Problem Relation Age of Onset No Known Problems Mother No Known Problems Father No Known Problems Sister No Known Problems Brother REVIEW OF SYSTEMS General: no weight loss, no fever, no chills, no anorexia Review of system is not available Intake/Output Summary (Last 24 hours) at 11/02/2022 1422 Last data filed at 11/02/2022 1303 Gross per 24 hour Intake 1210 ml Output -- Net 1210 ml PHYSICAL EXAM Vital Signs: Temp: [98.3 ??F (36.8 ??C)-98.7 ??F (37.1 ??C)] 98.7 ??F (37.1 ??C) Pulse: [50-63] 63 Resp: [18] 18 BP: (115-156)/(54-74) 118/63 230 lb (104.3 kg)5' 11 (1.803 m)Body mass index is 32.08 kg/m??. Constitutional: Healthy, no distress HENT: Normocephalic, Atraumatic, Bilateral external ears normal, Oropharynx moist, No oral exudates, No tenderness, neck supple. Eyes: PERRL, EOMI, Conjunctiva normal, No discharge. Lymphatic: No cervical or supraclavicular lymphadenopathy noted. Cardiovascular: Normal heart rate, Normal rhythm, No murmurs, No rubs, No gallops. Respiratory: Normal breath sounds, No respiratory distress, No wheezing, No rhonchi, No rales, No chest tenderness. GI: Bowel sounds normal, Soft, No tenderness, No rebound or guarding, No masses. Integument: Warm, Dry, No erythema, No rash. LABS Most recent labs reviewed. POC Glucose POC Glucose 11/02/22 1105 131 11/02/22 0602 122 11/01/22 2120 139 11/01/22 1646 139 Recent Labs Lab Units 11/02/22 0022 WBC X(10)9/L BLOOD x10E9/L 7.2 HGB GM/DL BLOOD gm/dL 9.3* HCT % BLOOD % 29.1* MCV FL BLOOD fl 93.3 MCH PG BLOOD pg 29.8 MCHC GM/DL BLOOD gm/dL 32.0 RDW-CV % BLOOD % 13.8 MPV FL BLOOD fl 9.[address] X(10)9/L BLOOD x10E9/L 272 Recent Labs Lab Units 11/02/22 0022 10/31/22 0628 10/29/22 0532 SODIUM MMOL/L BLOOD mmol/L 140 142 141 POTASSIUM MMOL/L BLOOD mmol/L 4.8 4.8 4.8 CHLORIDE mmol/L 112* 111* 110* CO2 mmol/L 18* 23 21* BUN MG/DL BLOOD mg/dL 27* 35* 42* ANION GAP BLOOD mmol/L 10 8 10 CREATININE mg/dL 1.23 1.28* 1.58* GLUCOSE MG/DL BLOOD mg/dL 110* 122* 160* CALCIUM MG/DL BLOOD mg/dL 9.2 9.7 9.6 Latest Reference Range & Units 10/30/22 02:05 Vitamin B12 pg/mL Blood 213 - 816 pg/mL 395 Vitamin D, 25-Hydroxy 30 - 100 ng/mL 18.0 (L) (L): Data is abnormally low IMAGING STUDIES & OTHER STUDIES Not applicable ASSESSMENT Principal Problem: Cerebrovascular accident Active Problems: Dysphagia Type 2 diabetes uncontrolled Increased body weight, vitamin-D deficiency PLAN Optimize insulin, added glipizide Discontinued Jardiance in view of urinary incontinence. Optimize vitamin-D Review outside records as available Rehab per protocol Diet per nutrition services We will follow with you while The plan was discussed with the patient and/or family. Electronically signed by: SOTO MENG MD, 11/02/2022 2:22 PM CDT * Raul Vo MD - 11/02/2022 12:19 PM CDT HOSPITALIST PROGRESS NOTE Patient Name: Esperanza Chaparro : 1955 Medical Record: [id number] ATTENDING Carolina Garibay MD SUBJECTIVE 10/30 The patient is being seen for follow-up of Cerebrovascular accident. BP, BS , HR, labs, strength. .Chief Complaint Renal 42/1.5 Hr 50s BP low DC norvasc Decrease dose of coreg and cozaar strength improving, able to do therapy ok. No chest pain, no SOB, no dizziness, no palpitations, no new neurologic symptoms. No cough, No nausea or vomiting, No abdominal pain. History also obtained from Nurse and staff about how the patient did overnight and during the day strength improving, able to do therapy ok. Brief 10/31: Patient seen and examined this morning. Patient complaining of uncontrolled pain. Follow up with PM&R for further recommendations. Continue current medical management. 11/01: Patient seen and examined this afternoon. Patient continues to complain of uncontrolled pain.Follow up with PM&R for further recommendations. Have placed orders for Flexeril 5 mg TID PRN. Continue current medical management. 11/02: Patient seen and examined this morning. Patient complaining of uncontrolled pain. Follow up with PM&R for further recommendations. Patient has been having great toe pain. Possibly patient has gout. Follow up uric acid. Follow up Podiatry further recommendations regarding foot care. Continue current medical management. lalit Patient is a [age]-year-old male with past medical history of CAD, COPD, hypertension, diabetes, sleep apnea, colon cancer status post colectomy who was transferred to [facility] with new neurological deficits. Imaging confirmed acute on chronic right MCA and SHEA stroke. Patient did receive tPA in the ER. Patient was admitted to the neuro ICU. Patient's clinical condition stabilized. Patient was kept on aspirin Plavix for 90 days. Patient was started on statin. Patient is on Jardiance. Secondary stroke workup was completed. Patient also did complete a course of Unasyn for peritonsillar abscess. Patient worked with physical therapy and occupational therapy. Acute inpatient rehab was recomme nded. HOME Medications Prior to Admission medications Medication Sig Start Date End Date Taking? Authorizing Provider Brinzolamide-Brimonidine 1-0.2 % suspension Administer 1 drop into both eyes 3 (three) times a day.Yes Historical Provider, budesonide-formoterol (SYMBICORT) 160-4.5 MCG/ACT inhaler Inhale 2 puffs RT 2 (two) times a day. Yes Historical Provider, cabergoline (DOSTINEX) 0.5 MG tablet Take 0.5 tablets (0.25 mg total) by mouth 2 (two) times a week. Yes Historical Provider, carboxymethylcellulose (Carboxymethylcellulose Sodium) solution Apply 1 drop (0.05 mL total) to both eyes 4 (four) times a day as needed for dry eyes. Yes Historical Provider, ergocalciferol (vitamin D2, Ergocalciferol,) 1.25 MG (54138 UT) capsule Take 1 capsule (50,000 Units total) by mouth once a week. Yes Historical Provider, melatonin tablet Take 8 tablets (8 mg total) by mouth nightly. Yes Historical Provider, Tiotropium [place] Monohydrate (Spiriva Respimat) 2.5 MCG/ACT aerosol solution Inhale 2 puffs (5 mcg total) RT Daily. Yes Historical Provider, CURRENT Medications Current Facility-Administered Medications: acetaminophen (TYLENOL) tablet 650 mg, 650 mg, Oral, Q8H BERNARDO, Marion Perry MD, 650 mg at 11/02/22 0609 Alogliptin Benzoate (NESINA) tablet 12.5 mg, 12.5 mg, Oral, Once a day, Soto Meng MD, 12.5 mg at11/02/22 0826 aspirin EC tablet 81 mg, 81 mg, Oral, Once a day, Marion Perry MD, 81 mg at 11/02/22 0826 bismuth subsalicylate (PEPTO BISMOL) 262 MG/15ML suspension 30 mL, 30 mL, Oral, Q6H PRN, Marion Perry MD calcium carbonate (TUMS) chewable tablet 1,000 mg, 1,000 mg, Oral, Q2H PRN, Marion Perry MD, 1,000 mg at 11/01/22 1313 carvedilol (COREG) tablet 3.125 mg, 3.125 mg, Oral, 2 times per day, Raul Vo MD, 3.125 mg at11/02/22 0852 nicotine (NICODERM CQ) patch 21 mg, 21 mg, Transdermal, Once a day, 21 mg at 11/02/22 0851 AND Check Patch Placement, , Transdermal, 2 times per day, Marion Perry MD, Check Patch Placement at 11/02/22 0832 cholecalciferol (VITAMIN D3) capsule 50,000 Units, 50,000 Units, Oral, Weekly, Soto Meng MD, 50,000 Units at 10/30/22 1100 clopidogrel (PLAVIX) tablet 75 mg, 75 mg, Oral, Once a day, Marion Perry MD, 75 mg at 11/02/22 0827 colchicine (COLCRYS) tablet 0.6 mg, 0.6 mg, Oral, Once a day, Carolina Garibay MD cyclobenzaprine (FLEXERIL) tablet 5 mg, 5 mg, Oral, TID PRN, Raul Vo MD, 5 mg at 11/01/22 1805 dextrose (GLUTOSE) 40 % oral gel 15 g, 15 g, Oral, PRN, Marion Perry MD dextrose 50 % IV solution 12.5 g, 12.5 g, Intravenous, PRN OR dextrose 50 % IV solution 25 g, 25 g, Intravenous, PRN, Marion Perry MD Fluticasone-Salmeterol (AIRDUO RESPICLICK) 232-14 MCG/ACT inhaler 1 puff, 1 puff, Inhalation, RT BID, Marion Perry MD, 1 puff at 11/02/22 0849 gabapentin (NEURONTIN) capsule 200 mg, 200 mg, Oral, 3 times per day, Marion Perry MD, 200 mgat 11/02/22 0827 glipiZIDE (GLUCOTROL) tablet 5 mg, 5 mg, Oral, Once a day, Soto Meng MD, 5 mg at 11/02/22 0848 glucagon injection reconstituted solution 1 mg, 1 mg, Intramuscular, PRN, Marion Perry MD hemorrhoidal ointment, , Apply externally, TID PRN, Marion Perry MD, Given at 10/30/22 1342 heparin (porcine) injection 5,000 Units, 5,000 Units, Subcutaneous, Q8H BERNARDO, Marion Perry MD,5,000 Units at 11/02/22 0608 insulin lispro injection 0-12 Units, 0-12 Units, Subcutaneous, TID AC, 4 Units at 10/31/22 1523 AND POCT glucose, , , TID AC, Soto Meng MD ipratropium-albuterol (DUO-NEB) 0.5-2.5 mg/3 mL nebulizer solution 3 mL, 3 mL, Inhalation, Q 4 hours PRN, Marion Perry MD lidocaine (LIDOCARE) 4 % patch 1 patch, 1 patch, Transdermal, Once a day, Marion Perry MD, 1 patch at 11/02/22 0850 losartan (COZAAR) tablet 25 mg, 25 mg, Oral, Once a day, Valencia Johnson MD, 25 mg at 11/02/22 0830 melatonin tablet 9 mg, 9 mg, Oral, Nightly, Marion Perry MD, 9 mg at 11/01/22 2121 oxyCODONE (ROXICODONE) immediate release tablet 5 mg, 5 mg, Oral, Q4H PRN, Marion Perry MD, 5mg at 11/02/22 0849 rosuvastatin (CRESTOR) tablet 40 mg, 40 mg, Oral, Once a day, Marion Perry MD, 40 mg at 11/02/22 0826 simethicone (MYLICON) chewable tablet 80 mg, 80 mg, Oral, 4x Daily PRN, Marion Perry MD, 80 mg at 10/31/22 1818 sodium chloride 0.9 % infusion, 100 mL/hr, Intravenous (Continuous Infusion), Continuous, Marion Perry MD, Last Rate: 100 mL/hr at 11/02/22 0329, 100 mL/hr at 11/02/22 0329 tamsulosin (FLOMAX) 24 hr capsule 0.4 mg, 0.4 mg, Oral, After Breakfast, Marion Perry MD, 0.4mg at 11/02/22 0825 Umeclidinium [place] (INCRUSE ELLIPTA) 62.5 MCG/ACT inhaler 62.5 mcg, 1 puff, Inhalation, RT Daily,Marion Perry MD, 62.5 mcg at 11/02/22 0849 DATA Vitals: 11/01/22 1941 11/02/22 0017 11/02/22 0740 11/02/22 0852 BP: (!) 156/74 145/67 115/54 118/63 Pulse: 55 61 63 Resp: 18 18 Temp: 98.3 ??F (36.8 ??C) 98.7 ??F (37.1 ??C) TempSrc: Oral Oral SpO2: 92% 91% Weight: Height: POC Glucose POC Glucose 11/02/22 1105 131 11/02/22 0602 122 11/01/22 2120 139 11/01/22 1646 139 Weights (last 3 days) Date/Time Weight 10/31/22 2302 230 lb (104.3 kg) @ANTICOAGSUMMARY@ @FLOWDATE(2706:LAST)@ Intake/Output Summary (Last 24 hours) at 11/02/2022 1219 Last data filed at 11/02/2022 0800 Gross per 24 hour Intake 490 ml Output -- Net 490 ml PHYSICAL EXAM General appearance: awake, alert, cooperative, no distress HEENT: Normocephalic, No icterus, No oral lesions, Oral and nasal mucosa moist Neck: Supple, no lymphadenopathy Eyes: EOMI, Conjunctiva normal, No discharge Cardiovascular: Normal heart rate, Normal rhythm, No murmurs, No rubs, No gallops Respiratory: Normal breath sounds, No respiratory distress, No wheezing, No rhonchi, No rales, No chest tenderness. GI: Bowel sounds normal, Soft, No tenderness, No rebound or guarding, No masses. Abdomen: soft without mass, non-tender, with normal bowel sounds Extremities: no clubbing, cyanosis or edema, no calf tenderness Musculoskeletal:no swelling of joints.no redness Psychologic: Mood ok, no suicidal ideation. 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 LABS CBC with Differential: Lab Results Component Value Date WBC 7.2 11/02/2022 HGB 9.3 (L) 11/02/2022 HCT 29.1 (L) 11/02/2022 PLT 272 11/02/2022 MCV 93.3 11/02/2022 MCH 29.8 11/02/2022 MCHC 32.0 11/02/2022 RDW 13.8 11/02/2022 [ BMP: Lab Results Component Value Date NA 140 11/02/2022 K 4.8 11/02/2022 CL 112 (H) 11/02/2022 CO2 18 (L) 11/02/2022 BUN 27 (H) 11/02/2022 CREATININE 1.23 11/02/2022 GLUCOSE 110 (H) 11/02/2022 CALCIUM 9.2 11/02/2022 ANIONGAP 10 11/02/2022 MG/PHOS: No results found for: MG, PHOS CKMB: No components found for: CKMB;2 PT/INR: No results found for: LABPROT, INR BNP: No results found for: BNP Last 3 Troponin: No components found for: TROPONINI;3 U/A: No results found for: COLORU, CLARITYU, GLUCOSEU, BILIRUBINUR, KETONESU, SPECGRAV, BLOODU, PHUR, UROBILINOGEN, NITRITE, LEUKOCYTESUR, MUCUS, RBCUA, WBCUA CMP: Lab Results Component Value Date NA 140 11/02/2022 K 4.8 11/02/2022 CL 112 (H) 11/02/2022 CO2 18 (L) 11/02/2022 BUN 27 (H) 11/02/2022 CREATININE 1.23 11/02/2022 GLUCOSE 110 (H) 11/02/2022 CALCIUM 9.2 11/02/2022 ANIONGAP 10 11/02/2022 LFT's: No results found for: ALB, PROT Ionized Calcium: No components found for: IONCA ABG: No results found for: PHART, [id number], PO2ART, [id number], BEART, [id number] HgBA1c: No results found for: HGBA1C Lipid Panel: No results found for: CHOL, TRIG, HDL TSH: No results found for: TSH Lab Results Component Value Date GLUCOSE 110 (H) 11/02/2022 BUN 27 (H) 11/02/2022 CREATININE 1.23 11/02/2022 NA 140 11/02/2022 K 4.8 11/02/2022 CL 112 (H) 11/02/2022 CO2 18 (L) 11/02/2022 CALCIUM 9.2 11/02/2022 @RESU CBC: Recent Labs Lab Units 11/02/22 0022 WBC X(10)9/L BLOOD x10E9/L 7.2 HGB GM/DL BLOOD gm/dL 9.3* PLT CT X(10)9/L BLOOD x10E9/L 272 MCV FL BLOOD fl 93.3 BMP: Recent Labs Lab Units 11/02/22 0022 SODIUM MMOL/L BLOOD mmol/L 140 POTASSIUM MMOL/L BLOOD mmol/L 4.8 CHLORIDE mmol/L 112* CO2 mmol/L 18* BUN MG/DL BLOOD mg/dL 27* CREATININE mg/dL 1.23 GLUCOSE MG/DL BLOOD mg/dL 110* CALCIUM MG/DL BLOOD mg/dL 9.2 I reviewed the EKG tracing/Xray Recent Labs Lab Units 11/02/22 0022 SODIUM MMOL/L BLOOD mmol/L 140 POTASSIUM MMOL/L BLOOD mmol/L 4.8 CHLORIDE mmol/L 112* CO2 mmol/L 18* BUN MG/DL BLOOD mg/dL 27* CREATININE mg/dL 1.23 GLUCOSE MG/DL BLOOD mg/dL 110* CALCIUM MG/DL BLOOD mg/dL 9.2 ANION GAP BLOOD mmol/L 10 ASSESSMENT AND PLAN Principal Problem: Cerebrovascular accident Active Problems: Dysphagia DAcute CVA Patient found to have a right acute on chronic MCA stroke and a SHEA ischemic stroke Patient received tPA in the ER Patient was admitted to the neuro ICU Patient was started on aspirin and Plavix Secondary stroke workup was completed Patient will be on 90 days of aspirin Plavix, end date 01/18/2023 Continue physical therapy Continue occupational therapy Physical medicine physician to oversee overall rehab program Hypertension Continue amlodipine 10 mg daily Bp low- dc norvasc DC IVF Bradycardia Decrease dose of coreg Mild renal insufficiency JUST finished IVF Inc po fluids F/U labs CAD Continue aspirin, coreg, plavix COPD Continue airduo Dysphagia Speech therapy DVT prophylaxis Continue heparin Code status Full code D/W patient , and attending physician about test results and treatment plan .No family in the room.Patient requiring monitoring of BP and HR while doing 3 hour intensive exercises to avoid fluctuations and hypotension . Aswell as monitoring of nutritional and fluid status , by weights, leg edema .Notified staff and patient to notify me of any change inconditions or new problems * Carolina Garibay MD - 11/02/2022 11:12 AM CDT PM&R PROGRESS NOTE This is Face to Face Visit note Esperanza Chaparro is a 67 y.o. male patient. Getting dressed this morning , no c/o headache , abdominal pain , pain well controlled working with therapy this morning REVIEW OF FUNCTIONAL STATUS SM Functional Status PT Data (since 10/30/2022) Value Time User Bed Mobility Level of Assist Total Assistance/Dependent; Moderate Assistance 10/31/2022 9:53 AM Tania Peck, ALEKSANDR Bed Mobility Comment Rolling side to side x 8 reps for hygiene, lower body clothing management, and cee pad management. Rolling to right with maximal assist, rolling to left with moderate assist and use of bed-rail. Sit to/from supine dependent in cee lift. 10/31/2022 12:33 PM Tania Peck, ALEKSANDR Transfer to Bed 10/31/2022 9:53 AM Tania Peck, POULTRY PINNER Transfer from Wheelchair 10/31/2022 9:53 AM Tania Peck PTA Transfer Level of Assist Total Assistance/Dependent 10/31/2022 9:53 AM Tania Peck, POULTRY PINNER WC Analysis Patient dependent in tilt-in space w/c 10/31/2022 12:33 PM Tania Peck, POULTRY PINNER SM Functional Status OT Data (since 10/30/2022) Value Time User Toileting Total Assistance/Dependent 10/31/2022 1:03 PM Purvi Vinson OT Upper Body Dressing Moderate Assistance 10/31/2022 1:03 PM Purvi Vinson OT Bed/Chair/WC Transfer Total Assistance/Dependent 10/31/2022 1:03 PM Purvi Vinson OT Patient Active Problem List Diagnosis Cerebrovascular accident Chronic obstructive pulmonary disease Coronary arteriosclerosis Primary hypertension Dysphagia Past Medical History: Diagnosis Date Cancer Heart disease Stroke Current Facility-Administered Medications: acetaminophen (TYLENOL) tablet 650 mg, 650 mg, Oral, Q8H BERNARDO, Marion Perry MD, 650 mg at 11/02/22 0609 Alogliptin Benzoate (NESINA) tablet 12.5 mg, 12.5 mg, Oral, Once a day, Soto Meng MD, 12.5 mg at11/02/22 0826 aspirin EC tablet 81 mg, 81 mg, Oral, Once a day, Marion Perry MD, 81 mg at 11/02/22 0826 bismuth subsalicylate (PEPTO BISMOL) 262 MG/15ML suspension 30 mL, 30 mL, Oral, Q6H PRN, Marion Perry MD calcium carbonate (TUMS) chewable tablet 1,000 mg, 1,000 mg, Oral, Q2H PRN, Marion Perry MD, 1,000 mg at 11/01/22 1313 carvedilol (COREG) tablet 3.125 mg, 3.125 mg, Oral, 2 times per day, Raul Vo MD, 3.125 mg at11/02/22 0852 nicotine (NICODERM CQ) patch 21 mg, 21 mg, Transdermal, Once a day, 21 mg at 11/02/22 0851 AND Check Patch Placement, , Transdermal, 2 times per day, Marion Perry MD, Check Patch Placement at 11/02/22 0832 cholecalciferol (VITAMIN D3) capsule 50,000 Units, 50,000 Units, Oral, Weekly, Soto Meng MD, 50,000 Units at 10/30/22 1100 clopidogrel (PLAVIX) tablet 75 mg, 75 mg, Oral, Once a day, Marion Perry MD, 75 mg at 11/02/22 0827 colchicine (COLCRYS) tablet 0.6 mg, 0.6 mg, Oral, Once a day, Carolina Garibay MD cyclobenzaprine (FLEXERIL) tablet 5 mg, 5 mg, Oral, TID PRN, Raul Vo MD, 5 mg at 11/01/22 1805 dextrose (GLUTOSE) 40 % oral gel 15 g, 15 g, Oral, PRN, Marion Perry MD dextrose 50 % IV solution 12.5 g, 12.5 g, Intravenous, PRN OR dextrose 50 % IV solution 25 g, 25 g, Intravenous, PRN, Marion Perry MD Fluticasone-Salmeterol (AIRDUO RESPICLICK) 232-14 MCG/ACT inhaler 1 puff, 1 puff, Inhalation, RT BID, Marion Perry MD, 1 puff at 11/02/22 0849 gabapentin (NEURONTIN) capsule 200 mg, 200 mg, Oral, 3 times per day, Marion Perry MD, 200 mgat 11/02/22 0827 glipiZIDE (GLUCOTROL) tablet 5 mg, 5 mg, Oral, Once a day, Soto Meng MD, 5 mg at 11/02/22 0848 glucagon injection reconstituted solution 1 mg, 1 mg, Intramuscular, PRN, Marion Perry MD hemorrhoidal ointment, , Apply externally, TID PRN, Marion Perry MD, Given at 10/30/22 1342 heparin (porcine) injection 5,000 Units, 5,000 Units, Subcutaneous, Q8H BERNARDO, Marion Perry MD,5,000 Units at 11/02/22 0608 insulin lispro injection 0-12 Units, 0-12 Units, Subcutaneous, TID AC, 4 Units at 10/31/22 1523 AND POCT glucose, , , TID AC, Soto Meng MD ipratropium-albuterol (DUO-NEB) 0.5-2.5 mg/3 mL nebulizer solution 3 mL, 3 mL, Inhalation, Q 4 hours PRN, Marion Perry MD lidocaine (LIDOCARE) 4 % patch 1 patch, 1 patch, Transdermal, Once a day, Marion Perry MD, 1 patch at 11/02/22 0850 losartan (COZAAR) tablet 25 mg, 25 mg, Oral, Once a day, Valencia Johnson MD, 25 mg at 11/02/22 0830 melatonin tablet 9 mg, 9 mg, Oral, Nightly, Marion Perry MD, 9 mg at 11/01/22 2121 oxyCODONE (ROXICODONE) immediate release tablet 5 mg, 5 mg, Oral, Q4H PRN, Marion Perry MD, 5mg at 11/02/22 0849 rosuvastatin (CRESTOR) tablet 40 mg, 40 mg, Oral, Once a day, Marion Perry MD, 40 mg at 11/02/22 0826 simethicone (MYLICON) chewable tablet 80 mg, 80 mg, Oral, 4x Daily PRN, Marion Perry MD, 80 mg at 10/31/22 1818 sodium chloride 0.9 % infusion, 100 mL/hr, Intravenous (Continuous Infusion), Continuous, Marion Perry MD, Last Rate: 100 mL/hr at 11/02/22 0329, 100 mL/hr at 11/02/22 0329 tamsulosin (FLOMAX) 24 hr capsule 0.4 mg, 0.4 mg, Oral, After Breakfast, Marion Perry MD, 0.4mg at 11/02/22 0825 Umeclidinium [place] (INCRUSE ELLIPTA) 62.5 MCG/ACT inhaler 62.5 mcg, 1 puff, Inhalation, RT Daily,Marion Perry MD, 62.5 mcg at 11/02/22 0849 Review of Systems: Review of Systems Constitutional: Positive for fatigue. HENT: Negative for congestion. Eyes: Negative for discharge. Respiratory: Negative for apnea. Cardiovascular: Positive for leg swelling. Gastrointestinal: Negative for abdominal distention. Genitourinary: Negative for difficulty urinating. Musculoskeletal: Positive for arthralgias. Skin: Negative for color change. Neurological: Positive for weakness. Psychiatric/Behavioral: The patient is nervous/anxious. Physical Exam Vitals: 11/02/22 0852 BP: 118/63 Pulse: 63 Resp: Temp: SpO2: Physical Exam Constitutional: General: He is not in acute distress. HENT: Head: Atraumatic. Eyes: Conjunctiva/sclera: Conjunctivae normal. Cardiovascular: Rate and Rhythm: Normal rate. Pulmonary: Effort: Pulmonary effort is normal. Abdominal: General: There is no distension. Skin: Findings: No erythema. Neurological: Coordination: Coordination abnormal. Neurologic Exam Mental Status Oriented to person. Lab Data Reviewed current lab results available to me today. Lab Results Component Value Date WBC 7.2 11/02/2022 HGB 9.3 (L) 11/02/2022 HCT 29.1 (L) 11/02/2022 MCV 93.3 11/02/2022 PLT 272 11/02/2022 Lab Results Component Value Date GLUCOSE 110 (H) 11/02/2022 CALCIUM 9.2 11/02/2022 NA 140 11/02/2022 K 4.8 11/02/2022 CO2 18 (L) 11/02/2022 CL 112 (H) 11/02/2022 BUN 27 (H) 11/02/2022 CREATININE 1.23 11/02/2022 ANIONGAP 10 11/02/2022 Imaging Reviewed current imaging results available to me today. No results found. Assessment & Plan: Esperanza Chaparro is a 67 y.o. male patient with Cerebrovascular accident functional impairment for rehab Cerebrovascular accident L sided hemiplegia ( dense ) Left face droop severely affected from CVA - on aspirin, Plavix 90 days, statin - gabapentin for neuropathy, 200 mg t.i.d., scheduled Tylenol PT, OT for gait training and ADL training, Nursing for bowel and bladder care. Speech therapy for swallow evaluation and cognitive evaluation. Skin/Wounds: - Skin integrity and Pressure ulcer prevention: frequent repositioning and adequate pressure relief. Maintain clean, dry skin. If needed, q2 hour turns when in bed and regular skin checks, application of protective barrier cream, toileting schedule. Wound RN consult Bowel & Bladder - monitor bowel movement - adjust scheduled and PRN bowel regimen as needed - monitor for adequate urinary output - should suspicion for urinary retention arise, PVR of random bladder scan will be performed for further assessment Continue current medical management. RECOMMENDATIONS At the current time, this inpatient hospital rehabilitation stay is medically necessary to achieve important health and functional goals. The patient requires frequent physician visits, 24-hour rehabilitation nursing, and a coordinated intensive rehabilitation program as described above to address complex medical, nursing, and rehabilitation needs. Continue inpatient comprehensive interdisciplinary rehabilitation to address strengthening, mobility skills, self care, cognitive functioning, speech, communication and swallowing needs. The patient continues to require the interdisciplinary team approach and 24 hour monitoring. DIET: Dietary Orders (From admission, onward) Start Ordered 10/29/22 1700 Nutritional supplement Oral 3 times daily with meals Comments: Send vanilla ensure high protein TID End/Expires: Until Specified Question Answer Comment Administration Route: Oral Place order in third constitution party system. Done 10/29/22 1346 10/28/222111 Adult Diet Regular; 6 Soft & Bite-Sized (NDD III); 0 Thin (All Liquids) Diet effective now End/Expires: Until Specified References: [employer] Website Question Answer Comment Diet Type: Regular Diet Texture: 6 Soft & Bite-Sized (NDD III) Liquid Consistency: 0 Thin (All Liquids) Place order in third constitution party system. 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 On modified diet # Gout flare: Colchicine daily # DMII - Lantus Jardiance, SSI # HTN - continue amlodipine and losartan #CAD s/p PCI - continue ASA, statin # COPD - home inhalers, duonebs prn CAROLINA GARIBAY MD * Raul Vo MD - 11/01/2022 1:54 PM CDT HOSPITALIST PROGRESS NOTE Patient Name: Esperanza Chaparro : 1955 Medical Record: [id number] ATTENDING Carolina Garibay MD SUBJECTIVE 10/30 The patient is being seen for follow-up of Cerebrovascular accident. BP, BS , HR, labs, strength. .Chief Complaint Renal 42/1.5 Hr 50s BP low DC norvasc Decrease dose of coreg and cozaar strength improving, able to do therapy ok. No chest pain, no SOB, no dizziness, no palpitations, no new neurologic symptoms. No cough, No nausea or vomiting, No abdominal pain. History also obtained from Nurse and staff about how the patient did overnight and during the day strength improving, able to do therapy ok. Brief 10/31: Patient seen and examined this morning. Patient complaining of uncontrolled pain. Follow up with PM&R for further recommendations. Continue current medical management. 11/01: Patient seen and examined this afternoon. Patient continues to complain of uncontrolled pain.Follow up with PM&R for further recommendations. Have placed orders for Flexeril 5 mg TID PRN. Continue current medical management. istory Patient is a [age]-year-old male with past medical history of CAD, COPD, hypertension, diabetes, sleep apnea, colon cancer status post colectomy who was transferred to [facility] with new neurological deficits. Imaging confirmed acute on chronic right MCA and SHEA stroke. Patient did receive tPA in the ER. Patient was admitted to the neuro ICU. Patient's clinical condition stabilized. Patient was kept on aspirin Plavix for 90 days. Patient was started on statin. Patient is on Jardiance. Secondary stroke workup was completed. Patient also did complete a course of Unasyn for peritonsillar abscess. Patient worked with physical therapy and occupational therapy. Acute inpatient rehab was recomm ended. HOME Medications Prior to Admission medications Medication Sig Start Date End Date Taking? Authorizing Provider Brinzolamide-Brimonidine 1-0.2 % suspension Administer 1 drop into both eyes 3 (three) times a day.Yes Historical Provider, budesonide-formoterol (SYMBICORT) 160-4.5 MCG/ACT inhaler Inhale 2 puffs RT 2 (two) times a day. Yes Historical Provider, cabergoline (DOSTINEX) 0.5 MG tablet Take 0.5 tablets (0.25 mg total) by mouth 2 (two) times a week. Yes Historical Provider, carboxymethylcellulose (Carboxymethylcellulose Sodium) solution Apply 1 drop (0.05 mL total) to both eyes 4 (four) times a day as needed for dry eyes. Yes Historical Provider, ergocalciferol (vitamin D2, Ergocalciferol,) 1.25 MG (56718 UT) capsule Take 1 capsule (50,000 Units total) by mouth once a week. Yes Historical Provider, melatonin tablet Take 8 tablets (8 mg total) by mouth nightly. Yes Historical Provider, Tiotropium [place] Monohydrate (Spiriva Respimat) 2.5 MCG/ACT aerosol solution Inhale 2 puffs (5 mcg total) RT Daily. Yes Historical Provider, CURRENT Medications Current Facility-Administered Medications: acetaminophen (TYLENOL) tablet 650 mg, 650 mg, Oral, Q8H BERNARDO, Marion Perry MD, 650 mg at 11/01/22 1338 Alogliptin Benzoate (NESINA) tablet 12.5 mg, 12.5 mg, Oral, Once a day, Soto Meng MD, 12.5 mg at11/01/22 0930 aspirin EC tablet 81 mg, 81 mg, Oral, Once a day, Marion Perry MD, 81 mg at 11/01/22 0924 bismuth subsalicylate (PEPTO BISMOL) 262 MG/15ML suspension 30 mL, 30 mL, Oral, Q6H PRN, Marion Perry MD calcium carbonate (TUMS) chewable tablet 1,000 mg, 1,000 mg, Oral, Q2H PRN, Marion Perry MD, 1,000 mg at 11/01/22 1313 carvedilol (COREG) tablet 3.125 mg, 3.125 mg, Oral, 2 times per day, Valencia Johnson MD, 3.125 mg at 11/01/22 0922 nicotine (NICODERM CQ) patch 21 mg, 21 mg, Transdermal, Once a day, 21 mg at 11/01/22 0927 AND Check Patch Placement, , Transdermal, 2 times per day, Marion Perry MD, Check Patch Placement at 11/01/22 0931 cholecalciferol (VITAMIN D3) capsule 50,000 Units, 50,000 Units, Oral, Weekly, Soto Meng MD, 50,000 Units at 10/30/22 1100 clopidogrel (PLAVIX) tablet 75 mg, 75 mg, Oral, Once a day, Marion Perry MD, 75 mg at 11/01/22 0924 dextrose (GLUTOSE) 40 % oral gel 15 g, 15 g, Oral, PRN, Marion Perry MD dextrose 50 % IV solution 12.5 g, 12.5 g, Intravenous, PRN OR dextrose 50 % IV solution 25 g, 25 g, Intravenous, PRN, Marion Perry MD Fluticasone-Salmeterol (AIRDUO RESPICLICK) 232-14 MCG/ACT inhaler 1 puff, 1 puff, Inhalation, RT BID, Marion Perry MD, 1 puff at 11/01/22 0920 gabapentin (NEURONTIN) capsule 200 mg, 200 mg, Oral, 3 times per day, Marion Perry MD, 200 mgat 11/01/22 0922 glucagon injection reconstituted solution 1 mg, 1 mg, Intramuscular, PRN, Marion Perry MD hemorrhoidal ointment, , Apply externally, TID PRN, Marion Perry MD, Given at 10/30/22 1342 heparin (porcine) injection 5,000 Units, 5,000 Units, Subcutaneous, Q8H BERNARDO, Marion Perry MD,5,000 Units at 11/01/22 1339 insulin glargine (LANTUS) injection 10 Units, 10 Units, Subcutaneous, Once a day, Marion Perry MD, 10 Units at 11/01/22 0926 insulin lispro injection 0-12 Units, 0-12 Units, Subcutaneous, TID AC, 4 Units at 10/31/22 1523 AND POCT glucose, , , TID AC, Soto Meng MD ipratropium-albuterol (DUO-NEB) 0.5-2.5 mg/3 mL nebulizer solution 3 mL, 3 mL, Inhalation, Q 4 hours PRN, Marion Perry MD lidocaine (LIDOCARE) 4 % patch 1 patch, 1 patch, Transdermal, Once a day, Marion Perry MD, 1 patch at 11/01/22 09 losartan (COZAAR) tablet 25 mg, 25 mg, Oral, Once a day, Valencia Johnson MD, 25 mg at 11/01/22 0925 melatonin tablet 9 mg, 9 mg, Oral, Nightly, Marion Perry MD, 9 mg at 10/31/22 2208 oxyCODONE (ROXICODONE) immediate release tablet 5 mg, 5 mg, Oral, Q4H PRN, Marion Perry MD, 5mg at 11/01/22 1338 rosuvastatin (CRESTOR) tablet 40 mg, 40 mg, Oral, Once a day, Marion Perry MD, 40 mg at 11/01/22 0922 simethicone (MYLICON) chewable tablet 80 mg, 80 mg, Oral, 4x Daily PRN, Marion Perry MD, 80 mg at 10/31/22 1818 sodium chloride 0.9 % infusion, 100 mL/hr, Intravenous (Continuous Infusion), Continuous, Marion Perry MD, Last Rate: 100 mL/hr at 11/01/22 1215, 100 mL/hr at 11/01/22 1215 tamsulosin (FLOMAX) 24 hr capsule 0.4 mg, 0.4 mg, Oral, After Breakfast, Marion Perry MD, 0.4mg at 11/01/22 0923 Umeclidinium [place] (INCRUSE ELLIPTA) 62.5 MCG/ACT inhaler 62.5 mcg, 1 puff, Inhalation, RT Daily,Marion Perry MD, 62.5 mcg at 11/01/22 0920 DATA Vitals: 10/31/22 1735 10/31/22 2302 11/01/22 0803 11/01/22 0918 BP: 106/58 126/69 Pulse: 50 50 58 Resp: 18 Temp: 98.1 ??F (36.7 ??C) TempSrc: Oral SpO2: 90% Weight: 230 lb (104.3 kg) Height: POC Glucose POC Glucose 11/01/22 1151 119 11/01/22 0611 125 10/31/22 1644 148 Weights (last 3 days) Date/Time Weight 10/31/22 2302 230 lb (104.3 kg) @ANTICOAGSUMMARY@ @FLOWDATE(2706:LAST)@ Intake/Output Summary (Last 24 hours) at 11/01/2022 1354 Last data filed at 11/01/2022 0803 Gross per 24 hour Intake 960 ml Output -- Net 960 ml PHYSICAL EXAM General appearance: awake, alert, cooperative, no distress HEENT: Normocephalic, No icterus, No oral lesions, Oral and nasal mucosa moist Neck: Supple, no lymphadenopathy Eyes: EOMI, Conjunctiva normal, No discharge Cardiovascular: Normal heart rate, Normal rhythm, No murmurs, No rubs, No gallops Respiratory: Normal breath sounds, No respiratory distress, No wheezing, No rhonchi, No rales, No chest tenderness. GI: Bowel sounds normal, Soft, No tenderness, No rebound or guarding, No masses. Abdomen: soft without mass, non-tender, with normal bowel sounds Extremities: no clubbing, cyanosis or edema, no calf tenderness Musculoskeletal:no swelling of joints.no redness Psychologic: Mood ok, no suicidal ideation. 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 LABS CBC with Differential: No results found for: WBC, RBC, HGB, HEMOGLOBIN, HCT, HEMATOCRIT, PLT, MCV, MCH, MCHC, RDW, NEUTPERCENT, MONOPERCENT, LYMPHPERCENT, BASOPERCENT [ BMP: Lab Results Component Value Date NA 142 10/31/2022 K 4.8 10/31/2022 CL 111 (H) 10/31/2022 CO2 23 10/31/2022 BUN 35 (H) 10/31/2022 CREATININE 1.28 (H) 10/31/2022 GLUCOSE 122 (H) 10/31/2022 CALCIUM 9.7 10/31/2022 ANIONGAP 8 10/31/2022 MG/PHOS: No results found for: MG, PHOS CKMB: No components found for: CKMB;2 PT/INR: No results found for: LABPROT, INR BNP: No results found for: BNP Last 3 Troponin: No components found for: TROPONINI;3 U/A: No results found for: COLORU, CLARITYU, GLUCOSEU, BILIRUBINUR, KETONESU, SPECGRAV, BLOODU, PHUR, UROBILINOGEN, NITRITE, LEUKOCYTESUR, MUCUS, RBCUA, WBCUA CMP: Lab Results Component Value Date NA 142 10/31/2022 K 4.8 10/31/2022 CL 111 (H) 10/31/2022 CO2 23 10/31/2022 BUN 35 (H) 10/31/2022 CREATININE 1.28 (H) 10/31/2022 GLUCOSE 122 (H) 10/31/2022 CALCIUM 9.7 10/31/2022 ANIONGAP 8 10/31/2022 LFT's: No results found for: ALB, PROT Ionized Calcium: No components found for: IONCA ABG: No results found for: PHART, QLN7UII, PO2ART, AQI2YQH, BEART, O3FFVKBZ HgBA1c: No results found for: HGBA1C Lipid Panel: No results found for: CHOL, TRIG, HDL TSH: No results found for: TSH Lab Results Component Value Date GLUCOSE 122 (H) 10/31/2022 BUN 35 (H) 10/31/2022 CREATININE 1.28 (H) 10/31/2022 NA 142 10/31/2022 K 4.8 10/31/2022 CL 111 (H) 10/31/2022 CO2 23 10/31/2022 CALCIUM 9.7 10/31/2022 @RESU CBC: Recent Labs Lab Units 10/29/22 0531 WBC X(10)9/L BLOOD x10E9/L 8.7 HGB GM/DL BLOOD gm/dL 10.7* PLT CT X(10)9/L BLOOD x10E9/L 308 MCV FL BLOOD fl 92.0 BMP: Recent Labs Lab Units 10/31/22 0628 SODIUM MMOL/L BLOOD mmol/L 142 POTASSIUM MMOL/L BLOOD mmol/L 4.8 CHLORIDE mmol/L 111* CO2 mmol/L 23 BUN MG/DL BLOOD mg/dL 35* CREATININE mg/dL 1.28* GLUCOSE MG/DL BLOOD mg/dL 122* CALCIUM MG/DL BLOOD mg/dL 9.7 I reviewed the EKG tracing/Xray Recent Labs Lab Units 10/31/22 0628 SODIUM MMOL/L BLOOD mmol/L 142 POTASSIUM MMOL/L BLOOD mmol/L 4.8 CHLORIDE mmol/L 111* CO2 mmol/L 23 BUN MG/DL BLOOD mg/dL 35* CREATININE mg/dL 1.28* GLUCOSE MG/DL BLOOD mg/dL 122* CALCIUM MG/DL BLOOD mg/dL 9.7 ANION GAP BLOOD mmol/L 8 ASSESSMENT AND PLAN Principal Problem: Cerebrovascular accident Active Problems: Dysphagia DAcute CVA Patient found to have a right acute on chronic MCA stroke and a SHEA ischemic stroke Patient received tPA in the ER Patient was admitted to the neuro ICU Patient was started on aspirin and Plavix Secondary stroke workup was completed Patient will be on 90 days of aspirin Plavix, end date 01/18/2023 Continue physical therapy Continue occupational therapy Physical medicine physician to oversee overall rehab program Hypertension Continue amlodipine 10 mg daily Bp low- dc norvasc DC IVF Bradycardia Decrease dose of coreg Mild renal insufficiency JUST finished IVF Inc po fluids F/U labs CAD Continue aspirin, coreg, plavix COPD Continue airduo Dysphagia Speech therapy DVT prophylaxis Continue heparin Code status Full code D/W patient , and attending physician about test results and treatment plan .No family in the room.Patient requiring monitoring of BP and HR while doing 3 hour intensive exercises to avoid fluctuations and hypotension . Aswell as monitoring of nutritional and fluid status , by weights, leg edema .Notified staff and patient to notify me of any change inconditions or new problems * Soto Meng MD - 11/01/2022 7:32 AM CDT ENDOCRINOLOGY progress note Patient Name: Esperanza Chaparro : 1955 Medical Record: [id number] DATE OF SERVICE 11/01/2022 PRIMARY CARE PHYSICIAN No primary care provider on file. ATTENDING PHYSICIAN Carolina Garibay MD CONSULTING PHYSICIAN SOTO MENG MD Follow-up Follow up for type 2 diabetes uncontrolled, glucoses are variable Increased body weight He is unable to give history, status post CVA Noted to have low vitamin-D on lab testing this admission.- replacement added, Urinary incontinence- Jardiance discontinued. HISTORY OF PRESENT ILLNESS The patient is a 67 y.o. y/o male with past medical history of CAD, COPD , hypertension, diabetes, sleep apnea, colon cancer s/p colectomy transferred to [facility] ER for neuro deficits Imaging confirmed Acute on chronic Rt MCA and SHEA ischemic stroke. Pt got tPA in ER and was admitted to neuro ICU. Pt kept on ASA, Plavix (to complete 90 days-EOT 01/18/23), Statin, Jardiance, Seen by neurology , secondary stroke work up completed . pt finished course of Unasyn for peritonsillar abscess. evaluated by therapy and recommend rehab for functional deficits. admitted to [facility] acute inpatient rehab for medical management and rehab PAST MEDICAL HISTORY Past Medical History: Diagnosis Date Cancer Heart disease Stroke PAST SURGICAL HISTORY Past Surgical History: Procedure Laterality Date CARDIAC SURGERY COLON SURGERY HERNIA REPAIR ALLERGIES Allergies Allergen Reactions Hydralazine Nausea And Vomiting Metformin Diarrhea Pioglitazone Nausea And Vomiting Lisinopril Rash Simvastatin Rash Pt reports hot flashes HOME MEDICATIONS Prior to Admission medications Medication Sig Start Date End Date Taking? Authorizing Provider Brinzolamide-Brimonidine 1-0.2 % suspension Administer 1 drop into both eyes 3 (three) times a day.Yes Historical Provider, budesonide-formoterol (SYMBICORT) 160-4.5 MCG/ACT inhaler Inhale 2 puffs RT 2 (two) times a day. Yes Historical Provider, cabergoline (DOSTINEX) 0.5 MG tablet Take 0.5 tablets (0.25 mg total) by mouth 2 (two) times a week. Yes Historical Provider, carboxymethylcellulose (Carboxymethylcellulose Sodium) solution Apply 1 drop (0.05 mL total) to both eyes 4 (four) times a day as needed for dry eyes. Yes Historical Provider, ergocalciferol (vitamin D2, Ergocalciferol,) 1.25 MG (92588 UT) capsule Take 1 capsule (50,000 Units total) by mouth once a week. Yes Historical Provider, melatonin tablet Take 8 tablets (8 mg total) by mouth nightly. Yes Historical Provider, Tiotropium [place] Monohydrate (Spiriva Respimat) 2.5 MCG/ACT aerosol solution Inhale 2 puffs (5 mcg total) RT Daily. Yes Historical Provider, CURRENT MEDICATIONS Current Facility-Administered Medications: acetaminophen (TYLENOL) tablet 650 mg, 650 mg, Oral, Q8H [facility], Marion Perry MD, 650 mg at 11/01/22 0619 Alogliptin Benzoate (NESINA) tablet 12.5 mg, 12.5 mg, Oral, Once a day, Soto Meng MD, 12.5 mg at10/31/22 0831 aspirin EC tablet 81 mg, 81 mg, Oral, Once a day, Marion Perry MD, 81 mg at 10/31/22 0832 bismuth subsalicylate (PEPTO BISMOL) 262 MG/15ML suspension 30 mL, 30 mL, Oral, Q6H PRN, Marion Perry MD calcium carbonate (TUMS) chewable tablet 1,000 mg, 1,000 mg, Oral, Q2H PRN, Marion Perry MD carvedilol (COREG) tablet 3.125 mg, 3.125 mg, Oral, 2 times per day, Valencia Johnson MD, 3.125 mg at 10/31/22 0834 nicotine (NICODERM CQ) patch 21 mg, 21 mg, Transdermal, Once a day, 21 mg at 10/31/22 0841 AND Check Patch Placement, , Transdermal, 2 times per day, Marion Perry MD, Check Patch Placement at 10/31/22 2211 cholecalciferol (VITAMIN D3) capsule 50,000 Units, 50,000 Units, Oral, Weekly, Soto Meng MD, 50,000 Units at 10/30/22 1100 clopidogrel (PLAVIX) tablet 75 mg, 75 mg, Oral, Once a day, Marion Perry MD, 75 mg at 10/31/22 0832 dextrose (GLUTOSE) 40 % oral gel 15 g, 15 g, Oral, PRN, Marion Perry MD dextrose 50 % IV solution 12.5 g, 12.5 g, Intravenous, PRN OR dextrose 50 % IV solution 25 g, 25 g, Intravenous, PRN, Marion Perry MD Fluticasone-Salmeterol (AIRDUO RESPICLICK) 232-14 MCG/ACT inhaler 1 puff, 1 puff, Inhalation, RT BID, Marion Perry MD, 1 puff at 10/31/22 2206 gabapentin (NEURONTIN) capsule 200 mg, 200 mg, Oral, 3 times per day, Marion Perry MD, 200 mgat 10/31/22 2208 glucagon injection reconstituted solution 1 mg, 1 mg, Intramuscular, PRN, Marion Perry MD hemorrhoidal ointment, , Apply externally, TID PRN, Marion Perry MD, Given at 10/30/22 1342 heparin (porcine) injection 5,000 Units, 5,000 Units, Subcutaneous, Q8H BERNARDO, Marion Perry MD,5,000 Units at 11/01/22 0619 insulin glargine (LANTUS) injection 10 Units, 10 Units, Subcutaneous, Once a day, Marion Perry MD, 10 Units at 10/31/22 0839 insulin lispro injection 0-12 Units, 0-12 Units, Subcutaneous, TID AC, 4 Units at 10/31/22 1523 AND POCT glucose, , , TID AC, Soto Meng MD ipratropium-albuterol (DUO-NEB) 0.5-2.5 mg/3 mL nebulizer solution 3 mL, 3 mL, Inhalation, Q 4 hours PRN, Marion Perry MD lidocaine (LIDOCARE) 4 % patch 1 patch, 1 patch, Transdermal, Once a day, Marion Perry MD, 1 patch at 10/31/22 0830 losartan (COZAAR) tablet 25 mg, 25 mg, Oral, Once a day, Valencia Johnson MD, 25 mg at 10/31/22 0834 melatonin tablet 9 mg, 9 mg, Oral, Nightly, Marion Perry MD, 9 mg at 10/31/22 2208 oxyCODONE (ROXICODONE) immediate release tablet 5 mg, 5 mg, Oral, Q4H PRN, Marion Perry MD, 5mg at 11/01/22 0306 rosuvastatin (CRESTOR) tablet 40 mg, 40 mg, Oral, Once a day, Marion Perry MD, 40 mg at 10/31/22 0830 simethicone (MYLICON) chewable tablet 80 mg, 80 mg, Oral, 4x Daily PRN, Marion Perry MD, 80 mg at 10/31/22 1818 sodium chloride 0.9 % infusion, 100 mL/hr, Intravenous (Continuous Infusion), Continuous, Marion Perry MD, Last Rate: 100 mL/hr at 11/01/22 07, 100 mL/hr at 11/01/22 07 tamsulosin (FLOMAX) 24 hr capsule 0.4 mg, 0.4 mg, Oral, After Breakfast, Marion Perry MD, 0.4mg at 10/31/22 0835 Umeclidinium [place] (INCRUSE ELLIPTA) 62.5 MCG/ACT inhaler 62.5 mcg, 1 puff, Inhalation, RT Daily,Marion Perry MD, 62.5 mcg at 10/31/22 0838 CURRENT DIET Dietary Orders (From admission, onward) Start Ordered 10/29/22 1700 Nutritional supplement Oral 3 times daily with meals Comments: Send vanilla ensure high protein TID End/Expires: Until Specified Question Answer Comment Administration Route: Oral Place order in third constitution party system. Done 10/29/22 1346 10/28/222 Adult Diet Regular; 6 Soft & Bite-Sized (NDD III); 0 Thin (All Liquids) Diet effective now End/Expires: Until Specified References: [employer] Website Question Answer Comment Diet Type: Regular Diet Texture: 6 Soft & Bite-Sized (NDD III) Liquid Consistency: 0 Thin (All Liquids) Place order in third constitution party system. Done 10/28/222110 SOCIAL HISTORY reports that he has been smoking cigarettes. He started smoking about 40 years ago. He has a 15.00 pack-year smoking history. He has been exposed to tobacco smoke. He has never used smokeless tobacco. He reports that he does not drink alcohol and does not use drugs. FAMILY HISTORY Family History Problem Relation Age of Onset No Known Problems Mother No Known Problems Father No Known Problems Sister No Known Problems Brother REVIEW OF SYSTEMS General: no weight loss, no fever, no chills, no anorexia Review of system is not available Intake/Output Summary (Last 24 hours) at 11/01/2022 0732 Last data filed at 10/31/2022 1820 Gross per 24 hour Intake 960 ml Output -- Net 960 ml PHYSICAL EXAM Vital Signs: Pulse: [50-59] 50 BP: (106-138)/(58-71) 106/58 230 lb (104.3 kg)5' 11 (1.803 m)Body mass index is 32.08 kg/m??. Constitutional: Healthy, no distress HENT: Normocephalic, Atraumatic, Bilateral external ears normal, Oropharynx moist, No oral exudates, No tenderness, neck supple. Eyes: PERRL, EOMI, Conjunctiva normal, No discharge. Lymphatic: No cervical or supraclavicular lymphadenopathy noted. Cardiovascular: Normal heart rate, Normal rhythm, No murmurs, No rubs, No gallops. Respiratory: Normal breath sounds, No respiratory distress, No wheezing, No rhonchi, No rales, No chest tenderness. GI: Bowel sounds normal, Soft, No tenderness, No rebound or guarding, No masses. Integument: Warm, Dry, No erythema, No rash. LABS Most recent labs reviewed. POC Glucose POC Glucose 11/01/22 0611 125 10/31/22 1644 148 10/31/22 1221 208 Recent Labs Lab Units 10/29/22 0531 WBC X(10)9/L BLOOD x10E9/L 8.7 HGB GM/DL BLOOD gm/dL 10.7* HCT % BLOOD % 33.5* MCV FL BLOOD fl 92.0 MCH PG BLOOD pg 29.4 MCHC GM/DL BLOOD gm/dL 31.9 RDW-CV % BLOOD % 13.7 MPV FL BLOOD fl 9.1* PLT CT X(10)9/L BLOOD x10E9/L 308 Recent Labs Lab Units 10/31/22 0628 10/29/22 0532 SODIUM MMOL/L BLOOD mmol/L 142 141 POTASSIUM MMOL/L BLOOD mmol/L 4.8 4.8 CHLORIDE mmol/L 111* 110* CO2 mmol/L 23 21* BUN MG/DL BLOOD mg/dL 35* 42* ANION GAP BLOOD mmol/L 8 10 CREATININE mg/dL 1.28* 1.58* GLUCOSE MG/DL BLOOD mg/dL 122* 160* CALCIUM MG/DL BLOOD mg/dL 9.7 9.6 Latest Reference Range & Units 10/30/22 02:05 Vitamin B12 pg/mL Blood 213 - 816 pg/mL 395 Vitamin D, 25-Hydroxy 30 - 100 ng/mL 18.0 (L) (L): Data is abnormally low IMAGING STUDIES & OTHER STUDIES Not applicable ASSESSMENT Principal Problem: Cerebrovascular accident Active Problems: Dysphagia Type 2 diabetes uncontrolled Increased body weight, vitamin-D deficiency PLAN Optimize insulin, add glipizide Discontinued Jardiance in view of urinary incontinence. Optimize vitamin-D Review outside records as available Rehab per protocol Diet per nutrition services We will follow with you while The plan was discussed with the patient and/or family. Electronically signed by: SOTO MENG MD, 11/01/2022 7:32 AM CDT * Raul Vo MD - 10/31/2022 12:44 PM CDT HOSPITALIST PROGRESS NOTE Patient Name: Esperanza Chaparro : 1955 Medical Record: [id number] ATTENDING Carolina Garibay MD SUBJECTIVE 10/30 The patient is being seen for follow-up of Cerebrovascular accident. BP, BS , HR, labs, strength. .Chief Complaint Renal 42/1.5 Hr 50s BP low DC norvasc Decrease dose of coreg and cozaar strength improving, able to do therapy ok. No chest pain, no SOB, no dizziness, no palpitations, no new neurologic symptoms. No cough, No nausea or vomiting, No abdominal pain. History also obtained from Nurse and staff about how the patient did overnight and during the day strength improving, able to do therapy ok. Brief 10/31: Patient seen and examined this morning. Patient complaining of uncontrolled pain. Follow up with PM&R for further recommendations. Continue current medical management. lalit Patient is a [age]-year-old male with past medical history of CAD, COPD, hypertension, diabetes, sleep apnea, colon cancer status post colectomy who was transferred to [facility] with new neurological deficits. Imaging confirmed acute on chronic right MCA and SHEA stroke. Patient did receive tPA in the ER. Patient was admitted to the neuro ICU. Patient's clinical condition stabilized. Patient was kept on aspirin Plavix for 90 days. Patient was started on statin. Patient is on Jardiance. Secondary stroke workup was completed. Patient also did complete a course of Unasyn for peritonsillar abscess. Patient worked with physical therapy and occupational therapy. Acute inpatient rehab was recomme nded. HOME Medications Prior to Admission medications Medication Sig Start Date End Date Taking? Authorizing Provider Brinzolamide-Brimonidine 1-0.2 % suspension Administer 1 drop into both eyes 3 (three) times a day.Yes Historical Provider, budesonide-formoterol (SYMBICORT) 160-4.5 MCG/ACT inhaler Inhale 2 puffs RT 2 (two) times a day. Yes Historical Provider, cabergoline (DOSTINEX) 0.5 MG tablet Take 0.5 tablets (0.25 mg total) by mouth 2 (two) times a week. Yes Historical Provider, carboxymethylcellulose (Carboxymethylcellulose Sodium) solution Apply 1 drop (0.05 mL total) to both eyes 4 (four) times a day as needed for dry eyes. Yes Historical Provider, ergocalciferol (vitamin D2, Ergocalciferol,) 1.25 MG (91470 UT) capsule Take 1 capsule (50,000 Units total) by mouth once a week. Yes Historical Provider, melatonin tablet Take 8 tablets (8 mg total) by mouth nightly. Yes Historical Provider, Tiotropium [place] Monohydrate (Spiriva Respimat) 2.5 MCG/ACT aerosol solution Inhale 2 puffs (5 mcg total) RT Daily. Yes Historical Provider, CURRENT Medications Current Facility-Administered Medications: acetaminophen (TYLENOL) tablet 650 mg, 650 mg, Oral, Q8H [facility], Marion Perry MD, 650 mg at 10/31/22 0617 Alogliptin Benzoate (NESINA) tablet 12.5 mg, 12.5 mg, Oral, Once a day, Soto Meng MD, 12.5 mg at10/31/22 0831 aspirin EC tablet 81 mg, 81 mg, Oral, Once a day, Marion Perry MD, 81 mg at 10/31/22 0832 bismuth subsalicylate (PEPTO BISMOL) 262 MG/15ML suspension 30 mL, 30 mL, Oral, Q6H PRN, Marion Perry MD calcium carbonate (TUMS) chewable tablet 1,000 mg, 1,000 mg, Oral, Q2H PRN, Marion Perry MD carvedilol (COREG) tablet 3.125 mg, 3.125 mg, Oral, 2 times per day, Valencia Johnson MD, 3.125 mg at 10/31/22 0834 nicotine (NICODERM CQ) patch 21 mg, 21 mg, Transdermal, Once a day, 21 mg at 10/31/22 0841 AND Check Patch Placement, , Transdermal, 2 times per day, Marion Perry MD, Check Patch Placement at 10/31/22 0839 cholecalciferol (VITAMIN D3) capsule 50,000 Units, 50,000 Units, Oral, Weekly, Soto Meng MD, 50,000 Units at 10/30/22 1100 clopidogrel (PLAVIX) tablet 75 mg, 75 mg, Oral, Once a day, Marion Perry MD, 75 mg at 10/31/22 0832 dextrose (GLUTOSE) 40 % oral gel 15 g, 15 g, Oral, PRN, Marion Perry MD dextrose 50 % IV solution 12.5 g, 12.5 g, Intravenous, PRN OR dextrose 50 % IV solution 25 g, 25 g, Intravenous, PRN, Marion Perry MD Fluticasone-Salmeterol (AIRDUO RESPICLICK) 232-14 MCG/ACT inhaler 1 puff, 1 puff, Inhalation, RT BID, Marion Perry MD, 1 puff at 10/31/22 0837 gabapentin (NEURONTIN) capsule 200 mg, 200 mg, Oral, 3 times per day, Marion Perry MD, 200 mgat 10/31/22 0832 glucagon injection reconstituted solution 1 mg, 1 mg, Intramuscular, PRN, Marion Perry MD hemorrhoidal ointment, , Apply externally, TID PRN, Marion Perry MD, Given at 10/30/22 1342 heparin (porcine) injection 5,000 Units, 5,000 Units, Subcutaneous, Q8H BERNARDO, Marion Perry MD,5,000 Units at 10/31/22 0617 insulin glargine (LANTUS) injection 10 Units, 10 Units, Subcutaneous, Once a day, Marion Perry MD, 10 Units at 10/31/22 0839 insulin lispro injection 0-12 Units, 0-12 Units, Subcutaneous, TID AC AND POCT glucose, , , TIDAC, Soto Meng MD ipratropium-albuterol (DUO-NEB) 0.5-2.5 mg/3 mL nebulizer solution 3 mL, 3 mL, Inhalation, Q 4 hours PRN, Marion Perry MD lidocaine (LIDOCARE) 4 % patch 1 patch, 1 patch, Transdermal, Once a day, Marion Perry MD, 1 patch at 10/31/22 0830 losartan (COZAAR) tablet 25 mg, 25 mg, Oral, Once a day, Valencia Johnson MD, 25 mg at 10/31/22 0834 melatonin tablet 9 mg, 9 mg, Oral, Nightly, Marion Perry MD, 9 mg at 10/30/22 2159 oxyCODONE (ROXICODONE) immediate release tablet 5 mg, 5 mg, Oral, Q4H PRN, Marion Perry MD, 5mg at 10/31/22 0850 rosuvastatin (CRESTOR) tablet 40 mg, 40 mg, Oral, Once a day, Marion Perry MD, 40 mg at 10/31/22 0830 simethicone (MYLICON) chewable tablet 80 mg, 80 mg, Oral, 4x Daily PRN, Marion Perry MD sodium chloride 0.9 % infusion, 100 mL/hr, Intravenous (Continuous Infusion), Continuous, Marion Perry MD, Last Rate: 100 mL/hr at 10/31/22 0838, 100 mL/hr at 10/31/22 0838 tamsulosin (FLOMAX) 24 hr capsule 0.4 mg, 0.4 mg, Oral, After Breakfast, Marion Perry MD, 0.4mg at 10/31/22 0835 Umeclidinium [place] (INCRUSE ELLIPTA) 62.5 MCG/ACT inhaler 62.5 mcg, 1 puff, Inhalation, RT Daily,Marion Perry MD, 62.5 mcg at 10/31/22 0838 DATA Vitals: 10/30/22 1405 10/30/22 1734 10/30/22 1923 10/31/22 0834 BP: 135/84 136/71 131/68 138/71 Pulse: 59 58 59 59 Resp: 18 17 16 Temp: 98.2 ??F (36.8 ??C) 98.8 ??F (37.1 ??C) 97.4 ??F (36.3 ??C) TempSrc: Oral Oral Oral SpO2: 94% 92% 91% Weight: Height: POC Glucose POC Glucose 10/31/22 1221 208 10/31/22 0626 117 10/30/22 1656 128 Weights (last 3 days) Date/Time Weight Height BSA (Calculated - sq m) 10/28/22 2212 228 lb 4 oz (103.5 kg) 5' 11 (1.803 m) 2.28 sq meters @ANTICOAGSUMMARY@ @FLOWDATE(2706:LAST)@ Intake/Output Summary (Last 24 hours) at 10/31/2022 1244 Last data filed at 10/30/2022 1730 Gross per 24 hour Intake 240 ml Output -- Net 240 ml PHYSICAL EXAM General appearance: awake, alert, cooperative, no distress HEENT: Normocephalic, No icterus, No oral lesions, Oral and nasal mucosa moist Neck: Supple, no lymphadenopathy Eyes: EOMI, Conjunctiva normal, No discharge Cardiovascular: Normal heart rate, Normal rhythm, No murmurs, No rubs, No gallops Respiratory: Normal breath sounds, No respiratory distress, No wheezing, No rhonchi, No rales, No chest tenderness. GI: Bowel sounds normal, Soft, No tenderness, No rebound or guarding, No masses. Abdomen: soft without mass, non-tender, with normal bowel sounds Extremities: no clubbing, cyanosis or edema, no calf tenderness Musculoskeletal:no swelling of joints.no redness Psychologic: Mood ok, no suicidal ideation. 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 LABS CBC with Differential: Lab Results Component Value Date WBC 8.7 10/29/2022 HGB 10.7 (L) 10/29/2022 HCT 33.5 (L) 10/29/2022 PLT 308 10/29/2022 MCV 92.0 10/29/2022 MCH 29.4 10/29/2022 MCHC 31.9 10/29/2022 RDW 13.7 10/29/2022 [ BMP: Lab Results Component Value Date NA 142 10/31/2022 K 4.8 10/31/2022 CL 111 (H) 10/31/2022 CO2 23 10/31/2022 BUN 35 (H) 10/31/2022 CREATININE 1.28 (H) 10/31/2022 GLUCOSE 122 (H) 10/31/2022 CALCIUM 9.7 10/31/2022 ANIONGAP 8 10/31/2022 MG/PHOS: No results found for: MG, PHOS CKMB: No components found for: CKMB;2 PT/INR: No results found for: LABPROT, INR BNP: No results found for: BNP Last 3 Troponin: No components found for: TROPONINI;3 U/A: No results found for: COLORU, CLARITYU, GLUCOSEU, BILIRUBINUR, KETONESU, SPECGRAV, BLOODU, PHUR, UROBILINOGEN, NITRITE, LEUKOCYTESUR, MUCUS, RBCUA, WBCUA CMP: Lab Results Component Value Date NA 142 10/31/2022 K 4.8 10/31/2022 CL 111 (H) 10/31/2022 CO2 23 10/31/2022 BUN 35 (H) 10/31/2022 CREATININE 1.28 (H) 10/31/2022 GLUCOSE 122 (H) 10/31/2022 CALCIUM 9.7 10/31/2022 ANIONGAP 8 10/31/2022 LFT's: No results found for: ALB, PROT Ionized Calcium: No components found for: IONCA ABG: No results found for: PHART, [id number], PO2ART, JHT4DWE, BEART, [id number] HgBA1c: No results found for: HGBA1C Lipid Panel: No results found for: CHOL, TRIG, HDL TSH: No results found for: TSH Lab Results Component Value Date GLUCOSE 122 (H) 10/31/2022 BUN 35 (H) 10/31/2022 CREATININE 1.28 (H) 10/31/2022 NA 142 10/31/2022 K 4.8 10/31/2022 CL 111 (H) 10/31/2022 CO2 23 10/31/2022 CALCIUM 9.7 10/31/2022 @RESU CBC: Recent Labs Lab Units 10/29/22 0531 WBC X(10)9/L BLOOD x10E9/L 8.7 HGB GM/DL BLOOD gm/dL 10.7* PLT CT X(10)9/L BLOOD x10E9/L 308 MCV FL BLOOD fl 92.0 BMP: Recent Labs Lab Units 10/31/22 0628 SODIUM MMOL/L BLOOD mmol/L 142 POTASSIUM MMOL/L BLOOD mmol/L 4.8 CHLORIDE mmol/L 111* CO2 mmol/L 23 BUN MG/DL BLOOD mg/dL 35* CREATININE mg/dL 1.28* GLUCOSE MG/DL BLOOD mg/dL 122* CALCIUM MG/DL BLOOD mg/dL 9.7 I reviewed the EKG tracing/Xray Recent Labs Lab Units 10/31/22 0628 SODIUM MMOL/L BLOOD mmol/L 142 POTASSIUM MMOL/L BLOOD mmol/L 4.8 CHLORIDE mmol/L 111* CO2 mmol/L 23 BUN MG/DL BLOOD mg/dL 35* CREATININE mg/dL 1.28* GLUCOSE MG/DL BLOOD mg/dL 122* CALCIUM MG/DL BLOOD mg/dL 9.7 ANION GAP BLOOD mmol/L 8 ASSESSMENT AND PLAN Principal Problem: Cerebrovascular accident Active Problems: Dysphagia DAcute CVA Patient found to have a right acute on chronic MCA stroke and a SHEA ischemic stroke Patient received tPA in the ER Patient was admitted to the neuro ICU Patient was started on aspirin and Plavix Secondary stroke workup was completed Patient will be on 90 days of aspirin Plavix, end date 01/18/2023 Continue physical therapy Continue occupational therapy Physical medicine physician to oversee overall rehab program Hypertension Continue amlodipine 10 mg daily Bp low- dc norvasc DC IVF Bradycardia Decrease dose of coreg Mild renal insufficiency JUST finished IVF Inc po fluids F/U labs CAD Continue aspirin, coreg, plavix COPD Continue airduo Dysphagia Speech therapy DVT prophylaxis Continue heparin Code status Full code D/W patient , and attending physician about test results and treatment plan .No family in the room.Patient requiring monitoring of BP and HR while doing 3 hour intensive exercises to avoid fluctuations and hypotension . Aswell as monitoring of nutritional and fluid status , by weights, leg edema .Notified staff and patient to notify me of any change inconditions or new problems * Soto Meng MD - 10/31/2022 7:10 AM CDT ENDOCRINOLOGY progress note Patient Name: Esperanza Chaparro : 1955 Medical Record: [id number] DATE OF SERVICE 10/31/2022 PRIMARY CARE PHYSICIAN No primary care provider on file. ATTENDING PHYSICIAN Carolina Garibay MD CONSULTING PHYSICIAN SOTO MENG MD Follow-up Follow up for type 2 diabetes uncontrolled, glucoses are variable Increased body weight He is unable to give history, status post CVA Noted to have low vitamin-D on lab testing this admission.- replacement added, Urinary incontinence- Jardiance discontinued HISTORY OF PRESENT ILLNESS The patient is a 67 y.o. y/o male with past medical history of CAD, COPD , hypertension, diabetes, sleep apnea, colon cancer s/p colectomy transferred to [facility] ER for neuro deficits Imaging confirmed Acute on chronic Rt MCA and SHEA ischemic stroke. Pt got tPA in ER and was admitted to neuro ICU. Pt kept on ASA, Plavix (to complete 90 days-EOT 01/18/23), Statin, Jardiance, Seen by neurology , secondary stroke work up completed . pt finished course of Unasyn for peritonsillar abscess. evaluated by therapy and recommend rehab for functional deficits. admitted to [facility] acute inpatient rehab for medical management and rehab PAST MEDICAL HISTORY Past Medical History: Diagnosis Date Cancer Heart disease Stroke PAST SURGICAL HISTORY Past Surgical History: Procedure Laterality Date CARDIAC SURGERY COLON SURGERY HERNIA REPAIR ALLERGIES Allergies Allergen Reactions Hydralazine Nausea And Vomiting Metformin Diarrhea Pioglitazone Nausea And Vomiting Lisinopril Rash Simvastatin Rash Pt reports hot flashes HOME MEDICATIONS Prior to Admission medications Medication Sig Start Date End Date Taking? Authorizing Provider Brinzolamide-Brimonidine 1-0.2 % suspension Administer 1 drop into both eyes 3 (three) times a day.Yes Historical Provider, budesonide-formoterol (SYMBICORT) 160-4.5 MCG/ACT inhaler Inhale 2 puffs RT 2 (two) times a day. Yes Historical Provider, cabergoline (DOSTINEX) 0.5 MG tablet Take 0.5 tablets (0.25 mg total) by mouth 2 (two) times a week. Yes Historical Provider, carboxymethylcellulose (Carboxymethylcellulose Sodium) solution Apply 1 drop (0.05 mL total) to both eyes 4 (four) times a day as needed for dry eyes. Yes Historical Provider, ergocalciferol (vitamin D2, Ergocalciferol,) 1.25 MG (60383 UT) capsule Take 1 capsule (50,000 Units total) by mouth once a week. Yes Historical Provider, melatonin tablet Take 8 tablets (8 mg total) by mouth nightly. Yes Historical Provider, Tiotropium [place] Monohydrate (Spiriva Respimat) 2.5 MCG/ACT aerosol solution Inhale 2 puffs (5 mcg total) RT Daily. Yes Historical Provider, CURRENT MEDICATIONS Current Facility-Administered Medications: acetaminophen (TYLENOL) tablet 650 mg, 650 mg, Oral, Q8H BERNARDO, Marion Perry MD, 650 mg at 10/31/22 0617 Alogliptin Benzoate (NESINA) tablet 12.5 mg, 12.5 mg, Oral, Once a day, Soto Meng MD, 12.5 mg at10/30/22 0853 aspirin EC tablet 81 mg, 81 mg, Oral, Once a day, Marion Perry MD, 81 mg at 10/30/22 0854 bismuth subsalicylate (PEPTO BISMOL) 262 MG/15ML suspension 30 mL, 30 mL, Oral, Q6H PRN, Marion Perry MD calcium carbonate (TUMS) chewable tablet 1,000 mg, 1,000 mg, Oral, Q2H PRN, Marion Perry MD carvedilol (COREG) tablet 3.125 mg, 3.125 mg, Oral, 2 times per day, Valencia Johnson MD nicotine (NICODERM CQ) patch 21 mg, 21 mg, Transdermal, Once a day, 21 mg at 10/30/22 0958 AND Check Patch Placement, , Transdermal, 2 times per day, Marion Perry MD, Check Patch Placement at 10/30/22 2201 cholecalciferol (VITAMIN D3) capsule 50,000 Units, 50,000 Units, Oral, Weekly, Soto Meng MD, 50,000 Units at 10/30/22 1100 clopidogrel (PLAVIX) tablet 75 mg, 75 mg, Oral, Once a day, Marion Perry MD, 75 mg at 10/30/22 0855 dextrose (GLUTOSE) 40 % oral gel 15 g, 15 g, Oral, PRN, Marion Perry MD dextrose 50 % IV solution 12.5 g, 12.5 g, Intravenous, PRN OR dextrose 50 % IV solution 25 g, 25 g, Intravenous, PRN, Marion Perry MD Fluticasone-Salmeterol (AIRDUO RESPICLICK) 232-14 MCG/ACT inhaler 1 puff, 1 puff, Inhalation, RT BID, Marion Perry MD, 1 puff at 10/30/22 2200 gabapentin (NEURONTIN) capsule 200 mg, 200 mg, Oral, 3 times per day, Marion Perry MD, 200 mgat 10/30/22 2158 glucagon injection reconstituted solution 1 mg, 1 mg, Intramuscular, PRN, Marion Perry MD hemorrhoidal ointment, , Apply externally, TID PRN, Marion Perry MD, Given at 10/30/22 1342 heparin (porcine) injection 5,000 Units, 5,000 Units, Subcutaneous, Q8H BERNARDO, Marion Perry MD,5,000 Units at 10/31/22 0617 insulin glargine (LANTUS) injection 10 Units, 10 Units, Subcutaneous, Once a day, Marion Perry MD, 10 Units at 10/30/22 1007 insulin lispro injection 0-12 Units, 0-12 Units, Subcutaneous, TID AC AND POCT glucose, , , TIDAC, Anohua Meng MD ipratropium-albuterol (DUO-NEB) 0.5-2.5 mg/3 mL nebulizer solution 3 mL, 3 mL, Inhalation, Q 4 hours PRN, Marion Perry MD lidocaine (LIDOCARE) 4 % patch 1 patch, 1 patch, Transdermal, Once a day, Marion Perry MD, 1 patch at 10/30/22 0853 losartan (COZAAR) tablet 25 mg, 25 mg, Oral, Once a day, Valencia Johnson MD melatonin tablet 9 mg, 9 mg, Oral, Nightly, Marion Perry MD, 9 mg at 10/30/222158 oxyCODONE (ROXICODONE) immediate release tablet 5 mg, 5 mg, Oral, Q4H PRN, Marion Perry MD, 5mg at 10/30/222156 rosuvastatin (CRESTOR) tablet 40 mg, 40 mg, Oral, Once a day, Marion Perry MD, 40 mg at 10/30/22 0850 simethicone (MYLICON) chewable tablet 80 mg, 80 mg, Oral, 4x Daily PRN, Marion Perry MD sodium chloride 0.9 % infusion, 100 mL/hr, Intravenous (Continuous Infusion), Continuous, Marion Perry MD, Last Rate: 100 mL/hr at 10/31/22 0618, 100 mL/hr at 10/31/22 0618 tamsulosin (FLOMAX) 24 hr capsule 0.4 mg, 0.4 mg, Oral, After Breakfast, Marion Perry MD, 0.4mg at 10/30/22 0852 Umeclidinium [place] (INCRUSE ELLIPTA) 62.5 MCG/ACT inhaler 62.5 mcg, 1 puff, Inhalation, RT Daily,Marion Perry MD, 62.5 mcg at 10/30/22 0918 CURRENT DIET Dietary Orders (From admission, onward) Start Ordered 10/29/22 1700 Nutritional supplement Oral 3 times daily with meals Comments: Send vanilla ensure high protein TID End/Expires: Until Specified Question Answer Comment Administration Route: Oral Place order in third constitution party system. Done 10/29/22 1346 10/28/222111 Adult Diet Regular; 6 Soft & Bite-Sized (NDD III); 0 Thin (All Liquids) Diet effective now End/Expires: Until Specified References: [employer] Website Question Answer Comment Diet Type: Regular Diet Texture: 6 Soft & Bite-Sized (NDD III) Liquid Consistency: 0 Thin (All Liquids) Place order in third constitution party system. Done 10/28/222110 SOCIAL HISTORY reports that he has been smoking cigarettes. He started smoking about 40 years ago. He has a 15.00 pack-year smoking history. He has been exposed to tobacco smoke. He has never used smokeless tobacco. He reports that he does not drink alcohol and does not use drugs. FAMILY HISTORY Family History Problem Relation Age of Onset No Known Problems Mother No Known Problems Father No Known Problems Sister No Known Problems Brother REVIEW OF SYSTEMS General: no weight loss, no fever, no chills, no anorexia Review of system is not available Intake/Output Summary (Last 24 hours) at 10/31/2022 0710 Last data filed at 10/30/2022 1730 Gross per 24 hour Intake 480 ml Output -- Net 480 ml PHYSICAL EXAM Vital Signs: Temp: [97.4 ??F (36.3 ??C)-98.8 ??F (37.1 ??C)] 97.4 ??F (36.3 ??C) Pulse: [49-59] 59 Resp: [16-18] 16 BP: (111-136)/(54-84) 131/68 228 lb 4 oz (103.5 kg)5' 11 (1.803 m)Body mass index is 31.83 kg/m??. Constitutional: Healthy, no distress HENT: Normocephalic, Atraumatic, Bilateral external ears normal, Oropharynx moist, No oral exudates, No tenderness, neck supple. Eyes: PERRL, EOMI, Conjunctiva normal, No discharge. Lymphatic: No cervical or supraclavicular lymphadenopathy noted. Cardiovascular: Normal heart rate, Normal rhythm, No murmurs, No rubs, No gallops. Respiratory: Normal breath sounds, No respiratory distress, No wheezing, No rhonchi, No rales, No chest tenderness. GI: Bowel sounds normal, Soft, No tenderness, No rebound or guarding, No masses. Integument: Warm, Dry, No erythema, No rash. LABS Most recent labs reviewed. POC Glucose POC Glucose 10/31/22 0626 117 10/30/22 1656 128 10/30/22 1142 173 Recent Labs Lab Units 10/29/22 0531 WBC X(10)9/L BLOOD x10E9/L 8.7 HGB GM/DL BLOOD gm/dL 10.7* HCT % BLOOD % 33.5* MCV FL BLOOD fl 92.0 MCH PG BLOOD pg 29.4 MCHC GM/DL BLOOD gm/dL 31.9 RDW-CV % BLOOD % 13.7 MPV FL BLOOD fl 9.1* PLT CT X(10)9/L BLOOD x10E9/L 308 Recent Labs Lab Units 10/29/22 0532 SODIUM MMOL/L BLOOD mmol/L 141 POTASSIUM MMOL/L BLOOD mmol/L 4.8 CHLORIDE mmol/L 110* CO2 mmol/L 21* BUN MG/DL BLOOD mg/dL 42* ANION GAP BLOOD mmol/L 10 CREATININE mg/dL 1.58* GLUCOSE MG/DL BLOOD mg/dL 160* CALCIUM MG/DL BLOOD mg/dL 9.6 Latest Reference Range & Units 10/30/22 02:05 Vitamin B12 pg/mL Blood 213 - 816 pg/mL 395 Vitamin D, 25-Hydroxy 30 - 100 ng/mL 18.0 (L) (L): Data is abnormally low IMAGING STUDIES & OTHER STUDIES Not applicable ASSESSMENT Principal Problem: Cerebrovascular accident Active Problems: Dysphagia Type 2 diabetes uncontrolled Increased body weight, vitamin-D deficiency PLAN Optimize insulin, reviewed recent labs Discontinued Jardiance in view of urinary incontinence. Optimize vitamin-D Review outside records as available Rehab per protocol Diet per nutrition services We will follow with you while The plan was discussed with the patient and/or family. Electronically signed by: SOTO MENG MD, 10/31/2022 7:10 AM CDT * Valencia Johnson MD - 10/30/2022 11:25 PM CDT HOSPITALIST PROGRESS NOTE Patient Name: Esperanza Chaparro : 1955 Medical Record: [id number] ATTENDING Carolina Garibay MD SUBJECTIVE 10/30 The patient is being seen for follow-up of Cerebrovascular accident. BP, BS , HR, labs, strength. .Chief Complaint Renal 42/1.5 Hr 50s BP low DC norvasc Decrease dose of coreg and cozaar strength improving, able to do therapy ok. No chest pain, no SOB, no dizziness, no palpitations, no new neurologic symptoms. No cough, No nausea or vomiting, No abdominal pain. History also obtained from Nurse and staff about how the patient did overnight and during the day strength improving, able to do therapy ok. Munir isrony Patient is a [age]-year-old male with past medical history of CAD, COPD, hypertension, diabetes, sleep apnea, colon cancer status post colectomy who was transferred to [facility] with new neurological deficits. Imaging confirmed acute on chronic right MCA and SHEA stroke. Patient did receive tPA in the ER. Patient was admitted to the neuro ICU. Patient's clinical condition stabilized. Patient was kept on aspirin Plavix for 90 days. Patient was started on statin. Patient is on Jardiance. Secondary stroke workup was completed. Patient also did complete a course of Unasyn for peritonsillar abscess. Patient worked with physical therapy and occupational therapy. Acute inpatient rehab was recomme nded. HOME Medications Prior to Admission medications Medication Sig Start Date End Date Taking? Authorizing Provider Brinzolamide-Brimonidine 1-0.2 % suspension Administer 1 drop into both eyes 3 (three) times a day.Yes Historical Provider, budesonide-formoterol (SYMBICORT) 160-4.5 MCG/ACT inhaler Inhale 2 puffs RT 2 (two) times a day. Yes Historical Provider, cabergoline (DOSTINEX) 0.5 MG tablet Take 0.5 tablets (0.25 mg total) by mouth 2 (two) times a week. Yes Historical Provider, carboxymethylcellulose (Carboxymethylcellulose Sodium) solution Apply 1 drop (0.05 mL total) to both eyes 4 (four) times a day as needed for dry eyes. Yes Historical Provider, ergocalciferol (vitamin D2, Ergocalciferol,) 1.25 MG (97514 UT) capsule Take 1 capsule (50,000 Units total) by mouth once a week. Yes Historical Provider, melatonin tablet Take 8 tablets (8 mg total) by mouth nightly. Yes Historical Provider, Tiotropium [place] Monohydrate (Spiriva Respimat) 2.5 MCG/ACT aerosol solution Inhale 2 puffs (5 mcg total) RT Daily. Yes Historical Provider, CURRENT Medications Current Facility-Administered Medications: acetaminophen (TYLENOL) tablet 650 mg, 650 mg, Oral, Q8H [facility], Marion Perry MD, 650 mg at 10/30/22 2200 Alogliptin Benzoate (NESINA) tablet 12.5 mg, 12.5 mg, Oral, Once a day, Soto Meng MD, 12.5 mg at10/30/22 0853 aspirin EC tablet 81 mg, 81 mg, Oral, Once a day, Marion Perry MD, 81 mg at 10/30/22 0854 bismuth subsalicylate (PEPTO BISMOL) 262 MG/15ML suspension 30 mL, 30 mL, Oral, Q6H PRN, Marion Perry MD calcium carbonate (TUMS) chewable tablet 1,000 mg, 1,000 mg, Oral, Q2H PRN, Marion Perry MD [START ON 10/31/2022] carvedilol (COREG) tablet 3.125 mg, 3.125 mg, Oral, 2 times per day, Valencia Johnson MD nicotine (NICODERM CQ) patch 21 mg, 21 mg, Transdermal, Once a day, 21 mg at 10/30/22 0958 AND Check Patch Placement, , Transdermal, 2 times per day, Marion Perry MD, Check Patch Placement at 10/30/22 2201 cholecalciferol (VITAMIN D3) capsule 50,000 Units, 50,000 Units, Oral, Weekly, Soto Meng MD, 50,000 Units at 10/30/22 1100 clopidogrel (PLAVIX) tablet 75 mg, 75 mg, Oral, Once a day, Marion Perry MD, 75 mg at 10/30/22 0855 dextrose (GLUTOSE) 40 % oral gel 15 g, 15 g, Oral, PRN, Marion Perry MD dextrose 50 % IV solution 12.5 g, 12.5 g, Intravenous, PRN OR dextrose 50 % IV solution 25 g, 25 g, Intravenous, PRN, Marion Perry MD Fluticasone-Salmeterol (AIRDUO RESPICLICK) 232-14 MCG/ACT inhaler 1 puff, 1 puff, Inhalation, RT BID, Marion Perry MD, 1 puff at 10/30/22 2200 gabapentin (NEURONTIN) capsule 200 mg, 200 mg, Oral, 3 times per day, Marion Perry MD, 200 mgat 10/30/228 glucagon injection reconstituted solution 1 mg, 1 mg, Intramuscular, PRN, Marion Perry MD hemorrhoidal ointment, , Apply externally, TID PRN, Marion Perry MD, Given at 10/30/22 1342 heparin (porcine) injection 5,000 Units, 5,000 Units, Subcutaneous, Q8H BERNARDO, Marion Perry MD,5,000 Units at 10/30/222156 insulin glargine (LANTUS) injection 10 Units, 10 Units, Subcutaneous, Once a day, Marion Perry MD, 10 Units at 10/30/22 1007 [START ON 10/31/2022] insulin lispro injection 0-12 Units, 0-12 Units, Subcutaneous, TID AC AND [START ON 10/31/2022] POCT glucose, , , TID AC, Soto Meng MD ipratropium-albuterol (DUO-NEB) 0.5-2.5 mg/3 mL nebulizer solution 3 mL, 3 mL, Inhalation, Q 4 hours PRN, Marion Perry MD lidocaine (LIDOCARE) 4 % patch 1 patch, 1 patch, Transdermal, Once a day, Marion Perry MD, 1 patch at 10/30/22 0853 [START ON 10/31/2022] losartan (COZAAR) tablet 25 mg, 25 mg, Oral, Once a day, Valencia Johnson MD melatonin tablet 9 mg, 9 mg, Oral, Nightly, Marion Perry MD, 9 mg at 10/30/222158 oxyCODONE (ROXICODONE) immediate release tablet 5 mg, 5 mg, Oral, Q4H PRN, Marion Perry MD, 5mg at 10/30/222156 rosuvastatin (CRESTOR) tablet 40 mg, 40 mg, Oral, Once a day, Marion Perry MD, 40 mg at 10/30/22 0850 simethicone (MYLICON) chewable tablet 80 mg, 80 mg, Oral, 4x Daily PRN, Marion Perry MD sodium chloride 0.9 % infusion, 100 mL/hr, Intravenous (Continuous Infusion), Continuous, Marion Perry MD, Last Rate: 100 mL/hr at 10/30/222200, 100 mL/hr at 10/30/22 220 tamsulosin (FLOMAX) 24 hr capsule 0.4 mg, 0.4 mg, Oral, After Breakfast, Marion Perry MD, 0.4mg at 10/30/22 0852 Umeclidinium [place] (INCRUSE ELLIPTA) 62.5 MCG/ACT inhaler 62.5 mcg, 1 puff, Inhalation, RT Daily,Marion Perry MD, 62.5 mcg at 10/30/22 0918 DATA Vitals: 10/30/22 1046 10/30/22 1405 10/30/22 1734 10/30/22 1923 BP: 121/72 135/84 136/71 131/68 Pulse: 57 59 58 59 Resp: 18 17 16 Temp: 98.2 ??F (36.8 ??C) 98.8 ??F (37.1 ??C) 97.4 ??F (36.3 ??C) TempSrc: Oral Oral Oral SpO2: 95% 94% 92% 91% Weight: Height: POC Glucose POC Glucose 10/30/22 1656 128 10/30/22 1142 173 10/30/22 0632 139 Weights (last 3 days) Date/Time Weight Height BSA (Calculated - sq m) 10/28/22 2212 228 lb 4 oz (103.5 kg) 5' 11 (1.803 m) 2.28 sq meters @ANTICOAGSUMMARY@ @FLOWDATE(2706:LAST)@ Intake/Output Summary (Last 24 hours) at 10/30/2022 2325 Last data filed at 10/30/2022 1730 Gross per 24 hour Intake 480 ml Output -- Net 480 ml PHYSICAL EXAM General appearance: awake, alert, cooperative, no distress HEENT: Normocephalic, No icterus, No oral lesions, Oral and nasal mucosa moist Neck: Supple, no lymphadenopathy Eyes: EOMI, Conjunctiva normal, No discharge Cardiovascular: Normal heart rate, Normal rhythm, No murmurs, No rubs, No gallops Respiratory: Normal breath sounds, No respiratory distress, No wheezing, No rhonchi, No rales, No chest tenderness. GI: Bowel sounds normal, Soft, No tenderness, No rebound or guarding, No masses. Abdomen: soft without mass, non-tender, with normal bowel sounds Extremities: no clubbing, cyanosis or edema, no calf tenderness Musculoskeletal:no swelling of joints.no redness Psychologic: Mood ok, no suicidal ideation. 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 LABS CBC with Differential: Lab Results Component Value Date WBC 8.7 10/29/2022 HGB 10.7 (L) 10/29/2022 HCT 33.5 (L) 10/29/2022 PLT 308 10/29/2022 MCV 92.0 10/29/2022 MCH 29.4 10/29/2022 MCHC 31.9 10/29/2022 RDW 13.7 10/29/2022 [ BMP: Lab Results Component Value Date NA 141 10/29/2022 K 4.8 10/29/2022 CL 110 (H) 10/29/2022 CO2 21 (L) 10/29/2022 BUN 42 (H) 10/29/2022 CREATININE 1.58 (H) 10/29/2022 GLUCOSE 160 (H) 10/29/2022 CALCIUM 9.6 10/29/2022 ANIONGAP 10 10/29/2022 MG/PHOS: No results found for: MG, PHOS CKMB: No components found for: CKMB;2 PT/INR: No results found for: LABPROT, INR BNP: No results found for: BNP Last 3 Troponin: No components found for: TROPONINI;3 U/A: No results found for: COLORU, CLARITYU, GLUCOSEU, BILIRUBINUR, KETONESU, SPECGRAV, BLOODU, PHUR, UROBILINOGEN, NITRITE, LEUKOCYTESUR, MUCUS, RBCUA, WBCUA CMP: Lab Results Component Value Date NA 141 10/29/2022 K 4.8 10/29/2022 CL 110 (H) 10/29/2022 CO2 21 (L) 10/29/2022 BUN 42 (H) 10/29/2022 CREATININE 1.58 (H) 10/29/2022 GLUCOSE 160 (H) 10/29/2022 CALCIUM 9.6 10/29/2022 ANIONGAP 10 10/29/2022 LFT's: No results found for: ALB, PROT Ionized Calcium: No components found for: IONCA ABG: No results found for: PHART, [id number], PO2ART, OXG5LXW, BEART, [id number] HgBA1c: No results found for: HGBA1C Lipid Panel: No results found for: CHOL, TRIG, HDL TSH: No results found for: TSH Lab Results Component Value Date GLUCOSE 160 (H) 10/29/2022 BUN 42 (H) 10/29/2022 CREATININE 1.58 (H) 10/29/2022 NA 141 10/29/2022 K 4.8 10/29/2022 CL 110 (H) 10/29/2022 CO2 21 (L) 10/29/2022 CALCIUM 9.6 10/29/2022 @RESU CBC: Recent Labs Lab Units 10/29/22 0531 WBC X(10)9/L BLOOD x10E9/L 8.7 HGB GM/DL BLOOD gm/dL 10.7* PLT CT X(10)9/L BLOOD x10E9/L 308 MCV FL BLOOD fl 92.0 BMP: Recent Labs Lab Units 10/29/22 0532 SODIUM MMOL/L BLOOD mmol/L 141 POTASSIUM MMOL/L BLOOD mmol/L 4.8 CHLORIDE mmol/L 110* CO2 mmol/L 21* BUN MG/DL BLOOD mg/dL 42* CREATININE mg/dL 1.58* GLUCOSE MG/DL BLOOD mg/dL 160* CALCIUM MG/DL BLOOD mg/dL 9.6 I reviewed the EKG tracing/Xray Recent Labs Lab Units 10/29/22 0532 SODIUM MMOL/L BLOOD mmol/L 141 POTASSIUM MMOL/L BLOOD mmol/L 4.8 CHLORIDE mmol/L 110* CO2 mmol/L 21* BUN MG/DL BLOOD mg/dL 42* CREATININE mg/dL 1.58* GLUCOSE MG/DL BLOOD mg/dL 160* CALCIUM MG/DL BLOOD mg/dL 9.6 ANION GAP BLOOD mmol/L 10 ASSESSMENT AND PLAN Principal Problem: Cerebrovascular accident Active Problems: Dysphagia DAcute CVA Patient found to have a right acute on chronic MCA stroke and a SHEA ischemic stroke Patient received tPA in the ER Patient was admitted to the neuro ICU Patient was started on aspirin and Plavix Secondary stroke workup was completed Patient will be on 90 days of aspirin Plavix, end date 01/18/2023 Continue physical therapy Continue occupational therapy Physical medicine physician to oversee overall rehab program Hypertension Continue amlodipine 10 mg daily Bp low- dc norvasc DC IVF Bradycardia Decrease dose of coreg Mild renal insufficiency JUST finished IVF Inc po fluids F/U labs CAD Continue aspirin, coreg, plavix COPD Continue airduo Dysphagia Speech therapy DVT prophylaxis Continue heparin Code status Full code D/W patient , and attending physician about test results and treatment plan .No family in the room.Patient requiring monitoring of BP and HR while doing 3 hour intensive exercises to avoid fluctuations and hypotension . Aswell as monitoring of nutritional and fluid status , by weights, leg edema .Notified staff and patient to notify me of any change inconditions or new problems Electronically signed by: VALENCIA JOHNSON MD, * Carolina Garibay MD - 10/30/2022 2:45 PM CDT PM&R PROGRESS NOTE This is Face to Face Visit note Esperanza Chaparro is a 67 y.o. male patient. no acute events, no dizziness, working with therapy this morning Note: REVIEW OF FUNCTIONAL STATUS Functional Status PT Data (since 10/27/2022) None Functional Status OT Data (since 10/27/2022) None EATING: supervision with occasional cues for encouragement and to continue task; some cues needed for locating items on left side of tray. ORAL HYGIENE: supervision, cues for thoroughness (especially for left side of mouth), and locating items on left side of his visual field Patient Active Problem List Diagnosis Cerebrovascular accident Chronic obstructive pulmonary disease Coronary arteriosclerosis Primary hypertension Dysphagia Past Medical History: Diagnosis Date Cancer Heart disease Stroke Current Facility-Administered Medications: acetaminophen (TYLENOL) tablet 650 mg, 650 mg, Oral, Q8H [facility], Marion Perry MD, 650 mg at 10/30/22 1406 Alogliptin Benzoate (NESINA) tablet 12.5 mg, 12.5 mg, Oral, Once a day, Soto Meng MD, 12.5 mg at10/30/22 0853 aspirin EC tablet 81 mg, 81 mg, Oral, Once a day, Marion Perry MD, 81 mg at 10/30/22 0854 bismuth subsalicylate (PEPTO BISMOL) 262 MG/15ML suspension 30 mL, 30 mL, Oral, Q6H PRN, Marion Perry MD calcium carbonate (TUMS) chewable tablet 1,000 mg, 1,000 mg, Oral, Q2H PRN, Marion Perry MD [START ON 10/31/2022] carvedilol (COREG) tablet 6.25 mg, 6.25 mg, Oral, 2 times per day, Valencia Johnson MD nicotine (NICODERM CQ) patch 21 mg, 21 mg, Transdermal, Once a day, 21 mg at 10/30/22 0958 AND Check Patch Placement, , Transdermal, 2 times per day, Marion Perry MD, Check Patch Placement at 10/30/22 0959 cholecalciferol (VITAMIN D3) capsule 50,000 Units, 50,000 Units, Oral, Weekly, Soto Meng MD, 50,000 Units at 10/30/22 1100 clopidogrel (PLAVIX) tablet 75 mg, 75 mg, Oral, Once a day, Marion Perry MD, 75 mg at 10/30/22 0855 dextrose (GLUTOSE) 40 % oral gel 15 g, 15 g, Oral, PRN, Marion Perry MD dextrose 50 % IV solution 12.5 g, 12.5 g, Intravenous, PRN OR dextrose 50 % IV solution 25 g, 25 g, Intravenous, PRN, Marion Perry MD Fluticasone-Salmeterol (AIRDUO RESPICLICK) 232-14 MCG/ACT inhaler 1 puff, 1 puff, Inhalation, RT BID, Marion Perry MD, 1 puff at 10/30/22 0914 gabapentin (NEURONTIN) capsule 200 mg, 200 mg, Oral, 3 times per day, Marion Perry MD, 200 mgat 10/30/22 0850 glucagon injection reconstituted solution 1 mg, 1 mg, Intramuscular, PRN, Marion Perry MD hemorrhoidal ointment, , Apply externally, TID PRN, Marion Perry MD, Given at 10/30/22 1342 heparin (porcine) injection 5,000 Units, 5,000 Units, Subcutaneous, Q8H BERNARDO, Marion Perry MD,5,000 Units at 10/30/22 1341 insulin glargine (LANTUS) injection 10 Units, 10 Units, Subcutaneous, Once a day, Marion Perry MD, 10 Units at 10/30/22 1007 insulin lispro injection 0-12 Units, 0-12 Units, Subcutaneous, TID AC, 2 Units at 10/30/22 1342 AND POCT glucose, , , AC & HS, Marion Perry MD ipratropium-albuterol (DUO-NEB) 0.5-2.5 mg/3 mL nebulizer solution 3 mL, 3 mL, Inhalation, Q 4 hours PRN, Marion Perry MD lidocaine (LIDOCARE) 4 % patch 1 patch, 1 patch, Transdermal, Once a day, Marion Perry MD, 1 patch at 10/30/22 0853 [START ON 10/31/2022] losartan (COZAAR) tablet 25 mg, 25 mg, Oral, Once a day, Valencia Johnson MD melatonin tablet 9 mg, 9 mg, Oral, Nightly, Marion Perry MD, 9 mg at 10/29/22 2040 oxyCODONE (ROXICODONE) immediate release tablet 5 mg, 5 mg, Oral, Q4H PRN, Marion Perry MD, 5mg at 10/30/22 1113 rosuvastatin (CRESTOR) tablet 40 mg, 40 mg, Oral, Once a day, Marion Perry MD, 40 mg at 10/30/22 0850 simethicone (MYLICON) chewable tablet 80 mg, 80 mg, Oral, 4x Daily PRN, Marion Perry MD sodium chloride 0.9 % infusion, 100 mL/hr, Intravenous (Continuous Infusion), Continuous, Marion Perry MD, Last Rate: 100 mL/hr at 10/30/22 1017, 100 mL/hr at 10/30/22 1017 tamsulosin (FLOMAX) 24 hr capsule 0.4 mg, 0.4 mg, Oral, After Breakfast, Marion Perry MD, 0.4mg at 10/30/22 0852 Umeclidinium [place] (INCRUSE ELLIPTA) 62.5 MCG/ACT inhaler 62.5 mcg, 1 puff, Inhalation, RT Daily,Marion Perry MD, 62.5 mcg at 10/30/22 0918 Review of Systems: Review of Systems Constitutional: Positive for fatigue. HENT: Negative for congestion. Eyes: Negative for discharge. Respiratory: Negative for apnea. Cardiovascular: Positive for leg swelling. Gastrointestinal: Negative for abdominal distention. Genitourinary: Negative for difficulty urinating. Musculoskeletal: Positive for arthralgias. Skin: Negative for color change. Neurological: Positive for weakness. Psychiatric/Behavioral: The patient is nervous/anxious. Physical Exam Vitals: 10/30/22 1405 BP: 135/84 Pulse: 59 Resp: 18 Temp: 98.2 ??F (36.8 ??C) SpO2: 94% Physical Exam Constitutional: General: He is not in acute distress. HENT: Head: Atraumatic. Eyes: Conjunctiva/sclera: Conjunctivae normal. Cardiovascular: Rate and Rhythm: Normal rate. Pulmonary: Effort: Pulmonary effort is normal. Abdominal: General: There is no distension. Skin: Findings: No erythema. Neurological: Coordination: Coordination abnormal. Neurologic Exam Mental Status Oriented to person. Lab Data Reviewed current lab results available to me today. Lab Results Component Value Date WBC 8.7 10/29/2022 HGB 10.7 (L) 10/29/2022 HCT 33.5 (L) 10/29/2022 MCV 92.0 10/29/2022 PLT 308 10/29/2022 Lab Results Component Value Date GLUCOSE 160 (H) 10/29/2022 CALCIUM 9.6 10/29/2022 NA 141 10/29/2022 K 4.8 10/29/2022 CO2 21 (L) 10/29/2022 CL 110 (H) 10/29/2022 BUN 42 (H) 10/29/2022 CREATININE 1.58 (H) 10/29/2022 ANIONGAP 10 10/29/2022 Imaging Reviewed current imaging results available to me today. No results found. Assessment & Plan: Esperanza Chaparro is a 67 y.o. male patient with Cerebrovascular accident functional impairment for rehab Cerebrovascular accident L sided hemiplegia ( dense ) Left face droop - on aspirin, Plavix 90 days, statin - gabapentin for neuropathy, 200 mg t.i.d., scheduled Tylenol PT, OT for gait training and ADL training, Nursing for bowel and bladder care. Speech therapy for swallow evaluation and cognitive evaluation. Skin/Wounds: - Skin integrity and Pressure ulcer prevention: frequent repositioning and adequate pressure relief. Maintain clean, dry skin. If needed, q2 hour turns when in bed and regular skin checks, application of protective barrier cream, toileting schedule. Wound RN consult Bowel & Bladder - monitor bowel movement - adjust scheduled and PRN bowel regimen as needed - monitor for adequate urinary output - should suspicion for urinary retention arise, PVR of random bladder scan will be performed for further assessment Continue current medical management. RECOMMENDATIONS At the current time, this inpatient hospital rehabilitation stay is medically necessary to achieve important health and functional goals. The patient requires frequent physician visits, 24-hour rehabilitation nursing, and a coordinated intensive rehabilitation program as described above to address complex medical, nursing, and rehabilitation needs. Continue inpatient comprehensive interdisciplinary rehabilitation to address strengthening, mobility skills, self care, cognitive functioning, speech, communication and swallowing needs. The patient continues to require the interdisciplinary team approach and 24 hour monitoring. DIET: Dietary Orders (From admission, onward) Start Ordered 10/29/22 1700 Nutritional supplement Oral 3 times daily with meals Comments: Send vanilla ensure high protein TID End/Expires: Until Specified Question Answer Comment Administration Route: Oral Place order in third constitution party system. Done 10/29/22 1346 10/28/222111 Adult Diet Regular; 6 Soft & Bite-Sized (NDD III); 0 Thin (All Liquids) Diet effective now End/Expires: Until Specified References: IDDSI Website Question Answer Comment Diet Type: Regular Diet Texture: 6 Soft & Bite-Sized (NDD III) Liquid Consistency: 0 Thin (All Liquids) Place order in third constitution party system. 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 On modified diet IVF per internal medicine # DMII - Lantus Jardiance, SSI # HTN - continue amlodipine and losartan #CAD s/p PCI - continue ASA, statin # COPD - home inhalers, duonebs prn CAROLINA GARIBAY MD * Soto Meng MD - 10/30/2022 9:58 AM CDT ENDOCRINOLOGY progress note Patient Name: Esperanza Chaparro : 1955 Medical Record: [id number] DATE OF SERVICE 10/30/2022 PRIMARY CARE PHYSICIAN No primary care provider on file. ATTENDING PHYSICIAN Carolina Garibay MD CONSULTING PHYSICIAN TAQUERIA, SOTO Sweeney MD Follow-up Follow up for type 2 diabetes uncontrolled, glucoses are variable Increased body weight He is to give history, status post CVA Noted to have low vitamin-D on lab testing this admission. Urinary incontinence HISTORY OF PRESENT ILLNESS The patient is a 67 y.o. y/o male with past medical history of CAD, COPD , hypertension, diabetes, sleep apnea, colon cancer s/p colectomy transferred to [facility] ER for neuro deficits Imaging confirmed Acute on chronic Rt MCA and SHEA ischemic stroke. Pt got tPA in ER and was admitted to neuro ICU. Pt kept on ASA, Plavix (to complete 90 days-EOT 01/18/23), Statin, Jardiance, Seen by neurology , secondary stroke work up completed . pt finished course of Unasyn for peritonsillar abscess. evaluated by therapy and recommend rehab for functional deficits. admitted to [facility] acute inpatient rehab for medical management and rehab PAST MEDICAL HISTORY Past Medical History: Diagnosis Date Cancer Heart disease Stroke PAST SURGICAL HISTORY Past Surgical History: Procedure Laterality Date CARDIAC SURGERY COLON SURGERY HERNIA REPAIR ALLERGIES Allergies Allergen Reactions Hydralazine Nausea And Vomiting Metformin Diarrhea Pioglitazone Nausea And Vomiting Lisinopril Rash Simvastatin Rash Pt reports hot flashes HOME MEDICATIONS Prior to Admission medications Medication Sig Start Date End Date Taking? Authorizing Provider Brinzolamide-Brimonidine 1-0.2 % suspension Administer 1 drop into both eyes 3 (three) times a day.Yes Historical Provider, budesonide-formoterol (SYMBICORT) 160-4.5 MCG/ACT inhaler Inhale 2 puffs RT 2 (two) times a day. Yes Historical Provider, cabergoline (DOSTINEX) 0.5 MG tablet Take 0.5 tablets (0.25 mg total) by mouth 2 (two) times a week. Yes Historical Provider, carboxymethylcellulose (Carboxymethylcellulose Sodium) solution Apply 1 drop (0.05 mL total) to both eyes 4 (four) times a day as needed for dry eyes. Yes Historical Provider, ergocalciferol (vitamin D2, Ergocalciferol,) 1.25 MG (72021 UT) capsule Take 1 capsule (50,000 Units total) by mouth once a week. Yes Historical Provider, melatonin tablet Take 8 tablets (8 mg total) by mouth nightly. Yes Historical Provider, Tiotropium [place] Monohydrate (Spiriva Respimat) 2.5 MCG/ACT aerosol solution Inhale 2 puffs (5 mcg total) RT Daily. Yes Historical Provider, CURRENT MEDICATIONS Current Facility-Administered Medications: acetaminophen (TYLENOL) tablet 650 mg, 650 mg, Oral, Q8H [facility], Marion Perry MD, 650 mg at 10/30/22 0626 Alogliptin Benzoate (NESINA) tablet 12.5 mg, 12.5 mg, Oral, Once a day, Soto Meng MD, 12.5 mg at10/30/22 0853 aspirin EC tablet 81 mg, 81 mg, Oral, Once a day, Marion Perry MD, 81 mg at 10/30/22 0854 bismuth subsalicylate (PEPTO BISMOL) 262 MG/15ML suspension 30 mL, 30 mL, Oral, Q6H PRN, Marion Perry MD calcium carbonate (TUMS) chewable tablet 1,000 mg, 1,000 mg, Oral, Q2H PRN, Marion Perry MD [START ON 10/31/2022] carvedilol (COREG) tablet 6.25 mg, 6.25 mg, Oral, 2 times per day, Valencia Johnson MD nicotine (NICODERM CQ) patch 21 mg, 21 mg, Transdermal, Once a day, 21 mg at 10/29/22 1038 AND Check Patch Placement, , Transdermal, 2 times per day, Marion Perry MD, Check Patch Placement at 06/22/23 2041 clopidogrel (PLAVIX) tablet 75 mg, 75 mg, Oral, Once a day, Marion Perry MD, 75 mg at 10/30/22 0855 dextrose (GLUTOSE) 40 % oral gel 15 g, 15 g, Oral, PRN, Marion Perry MD dextrose 50 % IV solution 12.5 g, 12.5 g, Intravenous, PRN OR dextrose 50 % IV solution 25 g, 25 g, Intravenous, PRN, Marion Perry MD Empagliflozin (JARDIANCE) tablet 25 mg, 25 mg, Oral, Once a day, Marion Perry MD, 25 mg at 10/30/22 0855 Fluticasone-Salmeterol (AIRDUO RESPICLICK) 232-14 MCG/ACT inhaler 1 puff, 1 puff, Inhalation, RT BID, Marion Perry MD, 1 puff at 10/30/22 0914 gabapentin (NEURONTIN) capsule 200 mg, 200 mg, Oral, 3 times per day, Marion Perry MD, 200 mgat 10/30/22 0850 glucagon injection reconstituted solution 1 mg, 1 mg, Intramuscular, PRN, Marion Perry MD hemorrhoidal ointment, , Apply externally, TID PRN, Marion Perry MD heparin (porcine) injection 5,000 Units, 5,000 Units, Subcutaneous, Q8H BERNARDO, Marion Perry MD,5,000 Units at 10/30/22 0626 insulin glargine (LANTUS) injection 10 Units, 10 Units, Subcutaneous, Once a day, Marion Perry MD, 10 Units at 10/29/22 1040 insulin lispro injection 0-12 Units, 0-12 Units, Subcutaneous, TID AC, 2 Units at 10/29/22 1255 AND POCT glucose, , , AC & HS, Marion Perry MD ipratropium-albuterol (DUO-NEB) 0.5-2.5 mg/3 mL nebulizer solution 3 mL, 3 mL, Inhalation, Q 4 hours PRN, Marion Perry MD lidocaine (LIDOCARE) 4 % patch 1 patch, 1 patch, Transdermal, Once a day, Marion Perry MD, 1 patch at 10/30/22 0853 [START ON 10/31/2022] losartan (COZAAR) tablet 25 mg, 25 mg, Oral, Once a day, Valencia Johnson MD melatonin tablet 9 mg, 9 mg, Oral, Nightly, Marion Perry MD, 9 mg at 10/29/22 2040 oxyCODONE (ROXICODONE) immediate release tablet 5 mg, 5 mg, Oral, Q4H PRN, Marion Perry MD, 5mg at 10/29/22 1254 rosuvastatin (CRESTOR) tablet 40 mg, 40 mg, Oral, Once a day, Marion Perry MD, 40 mg at 10/30/22 0850 simethicone (MYLICON) chewable tablet 80 mg, 80 mg, Oral, 4x Daily PRN, Marion Perry MD sodium chloride 0.9 % infusion, 100 mL/hr, Intravenous (Continuous Infusion), Continuous, Marion Perry MD, Last Rate: 100 mL/hr at 10/30/22 0627, 100 mL/hr at 10/30/22 0627 tamsulosin (FLOMAX) 24 hr capsule 0.4 mg, 0.4 mg, Oral, After Breakfast, Marion Perry MD, 0.4mg at 10/30/22 0852 Umeclidinium [place] (INCRUSE ELLIPTA) 62.5 MCG/ACT inhaler 62.5 mcg, 1 puff, Inhalation, RT Daily,Marion Perry MD, 62.5 mcg at 10/30/22 0918 CURRENT DIET Dietary Orders (From admission, onward) Start Ordered 10/29/22 1700 Nutritional supplement Oral 3 times daily with meals Comments: Send vanilla ensure high protein TID End/Expires: Until Specified Question Answer Comment Administration Route: Oral Place order in third constitution party system. Done 10/29/22 1346 10/28/22 2112 Adult Diet Regular; 6 Soft & Bite-Sized (NDD III); 0 Thin (All Liquids) Diet effective now End/Expires: Until Specified References: IDDSI Website Question Answer Comment Diet Type: Regular Diet Texture: 6 Soft & Bite-Sized (NDD III) Liquid Consistency: 0 Thin (All Liquids) Place order in third constitution party system. Done 10/28/222110 SOCIAL HISTORY reports that he has been smoking cigarettes. He started smoking about 40 years ago. He has a 15.00 pack-year smoking history. He has been exposed to tobacco smoke. He has never used smokeless tobacco. He reports that he does not drink alcohol and does not use drugs. FAMILY HISTORY Family History Problem Relation Age of Onset No Known Problems Mother No Known Problems Father No Known Problems Sister No Known Problems Brother REVIEW OF SYSTEMS General: no weight loss, no fever, no chills, no anorexia Review of system is not available Intake/Output Summary (Last 24 hours) at 10/30/2022 0958 Last data filed at 10/29/2022 1754 Gross per 24 hour Intake 720 ml Output -- Net 720 ml PHYSICAL EXAM Vital Signs: Temp: [97.7 ??F (36.5 ??C)-98.9 ??F (37.2 ??C)] 98 ??F (36.7 ??C) Pulse: [48-86] 49 Resp: [16] 16 BP: (98-128)/(53-70) 111/54 228 lb 4 oz (103.5 kg)5' 11 (1.803 m)Body mass index is 31.83 kg/m??. Constitutional: Healthy, no distress HENT: Normocephalic, Atraumatic, Bilateral external ears normal, Oropharynx moist, No oral exudates, No tenderness, neck supple. Eyes: PERRL, EOMI, Conjunctiva normal, No discharge. Lymphatic: No cervical or supraclavicular lymphadenopathy noted. Cardiovascular: Normal heart rate, Normal rhythm, No murmurs, No rubs, No gallops. Respiratory: Normal breath sounds, No respiratory distress, No wheezing, No rhonchi, No rales, No chest tenderness. GI: Bowel sounds normal, Soft, No tenderness, No rebound or guarding, No masses. Integument: Warm, Dry, No erythema, No rash. LABS Most recent labs reviewed. POC Glucose POC Glucose 10/30/22 0632 139 10/29/22 2035 174 10/29/22 1603 132 10/29/22 1106 179 Recent Labs Lab Units 10/29/22 0531 WBC X(10)9/L BLOOD x10E9/L 8.7 HGB GM/DL BLOOD gm/dL 10.7* HCT % BLOOD % 33.5* MCV FL BLOOD fl 92.0 MCH PG BLOOD pg 29.4 MCHC GM/DL BLOOD gm/dL 31.9 RDW-CV % BLOOD % 13.7 MPV FL BLOOD fl 9.1* PLT CT X(10)9/L BLOOD x10E9/L 308 Recent Labs Lab Units 10/29/22 0532 SODIUM MMOL/L BLOOD mmol/L 141 POTASSIUM MMOL/L BLOOD mmol/L 4.8 CHLORIDE mmol/L 110* CO2 mmol/L 21* BUN MG/DL BLOOD mg/dL 42* ANION GAP BLOOD mmol/L 10 CREATININE mg/dL 1.58* GLUCOSE MG/DL BLOOD mg/dL 160* CALCIUM MG/DL BLOOD mg/dL 9.6 Latest Reference Range & Units 10/30/22 02:05 Vitamin B12 pg/mL Blood 213 - 816 pg/mL 395 Vitamin D, 25-Hydroxy 30 - 100 ng/mL 18.0 (L) (L): Data is abnormally low IMAGING STUDIES & OTHER STUDIES Not applicable ASSESSMENT Principal Problem: Cerebrovascular accident Active Problems: Dysphagia Type 2 diabetes uncontrolled Increased body weight, vitamin-D deficiency PLAN Optimize insulin, reviewed recent labs Discontinue Jardiance in view of urinary incontinence. Optimize vitamin-D Review outside records as available Rehab per protocol Diet per nutrition services We will follow with you while The plan was discussed with the patient and/or family. Electronically signed by: SOTO MENG MD, 10/30/2022 9:58 AM CDT * Luke Elizalde, RD - 10/29/2022 1:39 PM CDT CLINICAL NUTRITION ASSESSMENT: Pt seen d/t new admit with nutrition screen score of 0. Pt reports appetite is okay, denies GI complaints. PO intake tug captain averaged 46% meals. Receiving Soft Bite Sized (6)/Advanced Soft/Dysphagia 3 diet, pt denies issues with chew/swallow. Pt states UBW is 232 lbs, will monitor. Pt states he cannot eat broccoli d/t causes indigestion. BUN/Cr elevated. Hgb/hematocrit low. Blood sugars controlled, nesina, jardiance, lispro, and glargine ordered. HgbA1c indicates fair control. LDL > 70 mg/dL receiving crestor. Wound photo reviewed. Bowels moving. Pt received Ensure QID at [facility], agrees to EnsureHP TID at rehab. Ensure High Protein for Muscle Health provides 160 calories ,16 grams protein and 19 grams of carb per 8 oz serving. Pt does not like chocolate. Patient Active Problem List Diagnosis Cerebrovascular accident Chronic obstructive pulmonary disease Coronary arteriosclerosis Primary hypertension Dysphagia H/o HLD, DM, JAMES, COPD, colon cancer with colectomy Anthropometrics: Height: 5' 11 (180.3 cm) Admit Weight: 228 lb 4 oz (103.5 kg) (10/28/222211) Weight Method: Bed scale (10/28/222211) Latest Weight: 228 lb 4 oz (103.5 kg) (10/28/222211) Weight Method: Bed scale (10/28/222211) Amputation Adjustment: BMI Amputation Adjustment: No IBW:172# 132.5%IBW BMI (Calculated): 31.8, BMI Class: Obese class 1 Weight Comment: will monitor Dietary Orders (From admission, onward) Start Ordered 10/28/222111 Adult Diet Regular; 6 Soft & Bite-Sized (NDD III); 0 Thin (All Liquids) Diet effective now End/Expires: Until Specified References: IDDSI Website Question Answer Comment Diet Type: Regular Diet Texture: 6 Soft & Bite-Sized (NDD III) Liquid Consistency: 0 Thin (All Liquids) Place order in third constitution party system. Done 10/28/222110 Food Allergies: No known food allergies. Nutrition Related Concerns: . Nutrition Related Concerns Nutrition Related Concerns: Poor Appetite Food/Nutrient Intake: PO intake tug captain: 46% P.O. (mL): 240 mL Percent Meal Eaten (%): 50 of Last Documented Meal Difficulty Chewing or Swallowing: No Clinical Characteristics of Potential Malnutrition: no malnutrition indicated from assessment Nutrition Focused Physical Findings: Head to Toe Physical Assessment Physical Assessment: Not Completed Estimated Needs: Total Energy Estimated Needs: 2070 kcal Method for Estimating Needs: 20 kcal/kg ABW Total Protein Estimated Needs: 90-95 grams Method for Estimating Needs: 1.2 g/kg IBW Total Fluid Estimated Needs: 2000 mL Method for Estimating Needs: mL/kcal NutritionSupport: Nutrition Support: No Relevant Labs: Most recent labs reviewed. H/H: Recent Labs Lab Units 10/29/22 0531 HGB GM/DL BLOOD gm/dL 10.7* HCT % BLOOD % 33.5* Recent Labs Lab Units 10/29/22 0532 SODIUM MMOL/L BLOOD mmol/L 141 POTASSIUM MMOL/L BLOOD mmol/L 4.8 CHLORIDE mmol/L 110* CO2 mmol/L 21* BUN MG/DL BLOOD mg/dL 42* CREATININE mg/dL 1.58* GLUCOSE MG/DL BLOOD mg/dL 160* CALCIUM MG/DL BLOOD mg/dL 9.6 ANION GAP BLOOD mmol/L 10 Accuchecks: 169-188 mg/dL 10/13/22: Total chol 148 HDL 40 LDL 85 Trig 117 10/12/22: HgbA1c 7.7% Relevant Medications: Current Facility-Administered Medications: acetaminophen (TYLENOL) tablet 650 mg, 650 mg, Oral, Q8H BERNARDO, Marion Perry MD, 650 mg at 10/29/22 0558 Alogliptin Benzoate (NESINA) tablet 12.5 mg, 12.5 mg, Oral, Once a day, Soto Meng MD, 12.5 mg at10/29/22 1038 amLODIPine (NORVASC) tablet 10 mg, 10 mg, Oral, Once a day, Marion Perry MD aspirin EC tablet 81 mg, 81 mg, Oral, Once a day, Marion Perry MD, 81 mg at 10/29/22 1039 bismuth subsalicylate (PEPTO BISMOL) 262 MG/15ML suspension 30 mL, 30 mL, Oral, Q6H PRN, Marion Perry MD calcium carbonate (TUMS) chewable tablet 1,000 mg, 1,000 mg, Oral, Q2H PRN, Marion Perry MD carvedilol (COREG) tablet 6.25 mg, 6.25 mg, Oral, 2 times per day, Marion Perry MD nicotine (NICODERM CQ) patch 21 mg, 21 mg, Transdermal, Once a day, 21 mg at 10/29/22 1038 AND Check Patch Placement, , Transdermal, 2 times per day, Marion Perry MD, Check Patch Placement at 10/29/22 1030 clopidogrel (PLAVIX) tablet 75 mg, 75 mg, Oral, Once a day, Marion Perry MD, 75 mg at 10/29/22 1037 dextrose (GLUTOSE) 40 % oral gel 15 g, 15 g, Oral, PRN, Marion Perry MD dextrose 50 % IV solution 12.5 g, 12.5 g, Intravenous, PRN OR dextrose 50 % IV solution 25 g, 25 g, Intravenous, PRN, Marion Perry MD Empagliflozin (JARDIANCE) tablet 25 mg, 25 mg, Oral, Once a day, Marion Perry MD, 25 mg at 10/29/22 1042 Fluticasone-Salmeterol (AIRDUO RESPICLICK) 232-14 MCG/ACT inhaler 1 puff, 1 puff, Inhalation, RT BID, Marion Perry MD, 1 puff at 10/29/22 1026 gabapentin (NEURONTIN) capsule 200 mg, 200 mg, Oral, 3 times per day, Marion Perry MD, 200 mgat 10/29/22 1041 glucagon injection reconstituted solution 1 mg, 1 mg, Intramuscular, PRN, Marion Perry MD hemorrhoidal ointment, , Apply externally, TID PRN, Marion Perry MD heparin (porcine) injection 5,000 Units, 5,000 Units, Subcutaneous, Q8H BERNARDO, Marion Perry MD,5,000 Units at 10/29/22 0559 insulin glargine (LANTUS) injection 10 Units, 10 Units, Subcutaneous, Once a day, Marion Perry MD, 10 Units at 10/29/22 1040 insulin lispro injection 0-12 Units, 0-12 Units, Subcutaneous, TID AC, 2 Units at 10/29/22 1255 AND POCT glucose, , , AC & HS, Marion Perry MD ipratropium-albuterol (DUO-NEB) 0.5-2.5 mg/3 mL nebulizer solution 3 mL, 3 mL, Inhalation, Q 4 hours PRN, Marion Perry MD lidocaine (LIDOCARE) 4 % patch 1 patch, 1 patch, Transdermal, Once a day, Marion Perry MD, 1 patch at 10/29/22 1043 losartan (COZAAR) tablet 50 mg, 50 mg, Oral, Once a day, Marion Perry MD melatonin tablet 9 mg, 9 mg, Oral, Nightly, Marion Perry MD, 9 mg at 10/28/22 2149 oxyCODONE (ROXICODONE) immediate release tablet 5 mg, 5 mg, Oral, Q4H PRN, Marion Perry MD, 5mg at 10/29/22 1254 rosuvastatin (CRESTOR) tablet 40 mg, 40 mg, Oral, Once a day, Marion Perry MD, 40 mg at 10/29/22 1038 simethicone (MYLICON) chewable tablet 80 mg, 80 mg, Oral, 4x Daily PRN, Marion Perry MD sodium chloride 0.9 % infusion, 100 mL/hr, Intravenous (Continuous Infusion), Continuous, Marion Perry MD, Last Rate: 100 mL/hr at 10/29/22 1210, 100 mL/hr at 10/29/22 1210 tamsulosin (FLOMAX) 24 hr capsule 0.4 mg, 0.4 mg, Oral, After Breakfast, Marion Perry MD, 0.4mg at 10/29/22 1037 Umeclidinium [place] (INCRUSE ELLIPTA) 62.5 MCG/ACT inhaler 62.5 mcg, 1 puff, Inhalation, RT Daily,Marion Perry MD, 62.5 mcg at 10/29/22 1025 Skin: coccyx, perineum Last BM: Bowel Occurrence: Incontinent (10/29/22 0327) Plan of Care - Nutrition Care Plans 1 Author: Luke Elizalde RD Service: -- Author Type: Registered Dietitian Filed: 10/29/2022 1:39 PM Date of Service: 10/29/2022 1:39 PM Status: Signed Continuous Improvement Consultant: Luke Elizalde RD (Registered Dietitian) Problem: Inadequate Oral Intake Description: Oral food/beverage intake that is less than established reference standards or recommendations based on physiological needs. Related to: Decreased ability to consume sufficient energy, e.g., increased nutrition needs due to prolonged catabolic illness As evidenced by: estimated protein needs of 90-95 g/day. Goal: Improve Nutritional Status Outcome: Progressing Flowsheets (Taken 10/29/2022 1338) Meals and Snacks: (soft and bite sized (6) diet) General healthful diet Medical Food Supplement Therapy: (vanilla Ensure high protein TID) Commercial beverage/Oral nutrition supplement Education Needs: none Monitor: po intake, supplement intake, weight, labs, skin, BMs Recommendations: Advance diet texture per OIL GAS AND PIPE TESTER, once po intake > 75% recommend 75 g/meal consistent CHO 2400 mg [place] saturated fat diet Send vanilla Ensure high protein TID Will follow every 5-7 days per protocol. Luke Palmer MS, RD/[facility] [id number] 10/29/22 1:39 PM CDT * Liset Arellano [facility] - 10/28/2022 2:14 PM CDT [facility]ly [facility] Note Drug Regimen Review / Medication Reconciliation Performed A Drug Regimen Review / Medication Reconciliation was performed upon Admission for: ESPERANZA CHAPARRO (67 y.o.) Medication orders from the previous facility were reviewed and pended by the pharmacy department. Physician: Patel Ruiz was notified that the orders were pended for their review. Medications: Symbicort, Spiriva, were substituted per Therapeutic Interchange Policy as approved byP&T. Patient was not receiving Simbrinza, Cabergoline, Artificial tears, Vit D2, in acute, these medications were added to home medication list. Physician to review and restart these medications if appropriate during inpatient rehabilitation admission. Patient's DVT prophylaxis in acute care: Heparin 5000 units subcutaneous every 8 hours - pended. Medication orders that have been clarified with the physician include: - Pended Melatonin as 9 mg instead of 8 mg (product availability). - Pended all insulin orders same as in acute care. - Jardiance increased to 25 mg on transfer (see acute care notes) - Pended Oxycodone, as in acute care. - Do not sub Rosuvastatin (allergy to Simvastatin and other statins possibly unknown) The pharmacy department will monitor the medication orders and associated labs during the patient'slength of stay for assurance of medication safety and efficacy. LISET ARELLANO RPH 2:04 PM CDT Pharmacist documented in this encounter H&P Notes * Marion Perry MD - 10/29/2022 8:45 PM CDT Hospitalist History & Physical Patient Name: Esperanza Chaparro : 1955 Medical Record: [id number] Date of Admission: 10/28/2022 Chief Complaint: Principal Problem: Cerebrovascular accident Active Problems: Dysphagia History of present Illness: Patient is a [age]-year-old male with past medical history of CAD, COPD, hypertension, diabetes, sleep apnea, colon cancer status post colectomy who was transferred to [facility] with new neurological deficits. Imaging confirmed acute on chronic right MCA and SHEA stroke. Patient did receive tPA in the ER. Patient was admitted to the neuro ICU. Patient's clinical condition stabilized. Patient was kept on aspirin Plavix for 90 days. Patient was started on statin. Patient is on Jardiance. Secondary stroke workup was completed. Patient also did complete a course of Unasyn for peritonsillar abscess. Patient worked with physical therapy and occupational therapy. Acute inpatient rehab was recomme nded. Review of systems: General: no weight loss, no fever, no chills, no anorexia Skin: no rash Eyes: no blurry vision Ears/Nose/Throat: no nasal congestion, no sore throat Respiratory: no cough, no dyspnea, no wheezing Cardiovascular: no chest pain, no ankle swelling Gastrointestinal: no nausea, no vomiting, no diarrhea, no constipation, no abdominal pain. No melena, no bright red blood per rectum Genitourinary: no dysuria, no hematuria Musculoskeletal: no joint pain, no myalgia, no muscle weakness Neurologic: no seizures, no tremors, no fainting, no focal weakness , tingling or numbness Hematologic/Lymphatic: no abnormal bleeding, no abnormal bruising Endocrine: no heat or cold intolerance, no polydipsia, no polyuria Psychiatric: no anxiety, no depression Allergy/Immunology: no seasonal allergies, no joint stiffness Review of systems pertinent as above and all the other 14 organ systems are negative Past medical / surgical / social history: Past medical history: Past Medical History: Diagnosis Date Cancer Heart disease Stroke Past surgical history: Past Surgical History: Procedure Laterality Date CARDIAC SURGERY COLON SURGERY HERNIA REPAIR Allergies: Allergies Allergen Reactions Hydralazine Nausea And Vomiting Metformin Diarrhea Pioglitazone Nausea And Vomiting Lisinopril Rash Simvastatin Rash Pt reports hot flashes Home medications: Prior to Admission medications Medication Sig Start Date End Date Taking? Authorizing Provider Brinzolamide-Brimonidine 1-0.2 % suspension Administer 1 drop into both eyes 3 (three) times a day.Yes Historical Provider, budesonide-formoterol (SYMBICORT) 160-4.5 MCG/ACT inhaler Inhale 2 puffs RT 2 (two) times a day. Yes Historical Provider, cabergoline (DOSTINEX) 0.5 MG tablet Take 0.5 tablets (0.25 mg total) by mouth 2 (two) times a week. Yes Historical Provider, carboxymethylcellulose (Carboxymethylcellulose Sodium) solution Apply 1 drop (0.05 mL total) to both eyes 4 (four) times a day as needed for dry eyes. Yes Historical Provider, ergocalciferol (vitamin D2, Ergocalciferol,) 1.25 MG (86781 UT) capsule Take 1 capsule (50,000 Units total) by mouth once a week. Yes Historical Provider, melatonin tablet Take 8 tablets (8 mg total) by mouth nightly. Yes Historical Provider, Tiotropium [place] Monohydrate (Spiriva Respimat) 2.5 MCG/ACT aerosol solution Inhale 2 puffs (5 mcg total) RT Daily. Yes Historical Provider, Current medications: Current Facility-Administered Medications: acetaminophen (TYLENOL) tablet 650 mg, 650 mg, Oral, Q8H BERNARDO, Marion Perry MD, 650 mg at 10/29/22 1448 Alogliptin Benzoate (NESINA) tablet 12.5 mg, 12.5 mg, Oral, Once a day, Soto Meng MD, 12.5 mg at10/29/22 1038 amLODIPine (NORVASC) tablet 10 mg, 10 mg, Oral, Once a day, Marion Perry MD aspirin EC tablet 81 mg, 81 mg, Oral, Once a day, Marion Perry MD, 81 mg at 10/29/22 1039 bismuth subsalicylate (PEPTO BISMOL) 262 MG/15ML suspension 30 mL, 30 mL, Oral, Q6H PRN, Marion Perry MD calcium carbonate (TUMS) chewable tablet 1,000 mg, 1,000 mg, Oral, Q2H PRN, Marion Perry MD carvedilol (COREG) tablet 6.25 mg, 6.25 mg, Oral, 2 times per day, Marion Perry MD, 6.25 mg at 10/29/22 1754 nicotine (NICODERM CQ) patch 21 mg, 21 mg, Transdermal, Once a day, 21 mg at 10/29/22 1038 AND Check Patch Placement, , Transdermal, 2 times per day, Marion Perry MD, Check Patch Placement at 10/29/222040 clopidogrel (PLAVIX) tablet 75 mg, 75 mg, Oral, Once a day, Marion Perry MD, 75 mg at 10/29/22 1037 dextrose (GLUTOSE) 40 % oral gel 15 g, 15 g, Oral, PRN, Marion Perry MD dextrose 50 % IV solution 12.5 g, 12.5 g, Intravenous, PRN OR dextrose 50 % IV solution 25 g, 25 g, Intravenous, PRN, Marion Perry MD Empagliflozin (JARDIANCE) tablet 25 mg, 25 mg, Oral, Once a day, Marion Perry MD, 25 mg at 10/29/22 1042 Fluticasone-Salmeterol (AIRDUO RESPICLICK) 232-14 MCG/ACT inhaler 1 puff, 1 puff, Inhalation, RT BID, Marion Perry MD, 1 puff at 10/29/222040 gabapentin (NEURONTIN) capsule 200 mg, 200 mg, Oral, 3 times per day, Marion Perry MD, 200 mgat 10/29/222039 glucagon injection reconstituted solution 1 mg, 1 mg, Intramuscular, PRN, Marion Perry MD hemorrhoidal ointment, , Apply externally, TID PRN, Marion Perry MD heparin (porcine) injection 5,000 Units, 5,000 Units, Subcutaneous, Q8H BERNARDO, Marion Perry MD,5,000 Units at 10/29/22 1448 insulin glargine (LANTUS) injection 10 Units, 10 Units, Subcutaneous, Once a day, Marion Perry MD, 10 Units at 10/29/22 1040 insulin lispro injection 0-12 Units, 0-12 Units, Subcutaneous, TID AC, 2 Units at 10/29/22 1255 AND POCT glucose, , , AC & HS, Marion Perry MD ipratropium-albuterol (DUO-NEB) 0.5-2.5 mg/3 mL nebulizer solution 3 mL, 3 mL, Inhalation, Q 4 hours PRN, Marion Perry MD lidocaine (LIDOCARE) 4 % patch 1 patch, 1 patch, Transdermal, Once a day, Marion Perry MD, 1 patch at 10/29/22 1043 losartan (COZAAR) tablet 50 mg, 50 mg, Oral, Once a day, Marion Perry MD melatonin tablet 9 mg, 9 mg, Oral, Nightly, Marion Perry MD, 9 mg at 10/29/22 2040 oxyCODONE (ROXICODONE) immediate release tablet 5 mg, 5 mg, Oral, Q4H PRN, Marion Perry MD, 5mg at 10/29/22 1254 rosuvastatin (CRESTOR) tablet 40 mg, 40 mg, Oral, Once a day, Marion Perry MD, 40 mg at 10/29/22 1038 simethicone (MYLICON) chewable tablet 80 mg, 80 mg, Oral, 4x Daily PRN, Marion Perry MD sodium chloride 0.9 % infusion, 100 mL/hr, Intravenous (Continuous Infusion), Continuous, Marion Perry MD, Last Rate: 100 mL/hr at 10/29/222041, 100 mL/hr at 10/29/222041 tamsulosin (FLOMAX) 24 hr capsule 0.4 mg, 0.4 mg, Oral, After Breakfast, Marion Perry MD, 0.4mg at 10/29/22 1037 Umeclidinium [place] (INCRUSE ELLIPTA) 62.5 MCG/ACT inhaler 62.5 mcg, 1 puff, Inhalation, RT Daily,Marion Perry MD, 62.5 mcg at 10/29/22 1025 Social history: reports that he has been smoking cigarettes. He started smoking about 40 years ago. He has a 15.00 pack-year smoking history. He has been exposed to tobacco smoke. He has never used smokeless tobacco. He reports that he does not drink alcohol and does not use drugs. Denies smoking, alcohol or illicit drugs currently Family history: Family History Problem Relation Age of Onset No Known Problems Mother No Known Problems Father No Known Problems Sister No Known Problems Brother No known history of thromboembolism Physical Exam: Vital Signs: Temp: [97.4 ??F (36.3 ??C)-98.7 ??F (37.1 ??C)] 97.7 ??F (36.5 ??C) Pulse: [48-86] 86 Resp: [17-18] 18 BP: (67-138)/(6-78) 107/66 I/O Intake/Output Summary (Last 24 hours) at 10/29/20222044 Last data filed at 10/29/2022 1754 Gross per 24 hour Intake 880 ml Output -- Net 880 ml POC Glucose POC Glucose 10/29/22 2035 174 10/29/22 1603 132 10/29/22 1106 179 10/29/22 0529 188 10/28/22 2137 169 Weights (last 3 days) Date/Time Weight Height BSA (Calculated - sq m) 10/28/22 2212 228 lb 4 oz (103.5 kg) 5' 11 (1.803 m) 2.28 sq meters General appearance: awake, alert, cooperative, no distress HEENT: Normocephalic, No icterus, No oral lesions, Cardiovascular: s1-s2 audible, RRR, No murmurs, No rubs, No gallops Respiratory: CTA anteriorly, No respiratory distress, No wheezing, No rhonchi, No rales, No chest tenderness. Abdomen: Bowel sounds normal, Soft, No tenderness, No rebound or guarding, No masses. 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 GUN MECHANIC:Alert & oriented, speech fluent, moving all extremities, strength intact Labs CBC with Differential: Lab Results Component Value Date WBC 8.7 10/29/2022 HGB 10.7 (L) 10/29/2022 HCT 33.5 (L) 10/29/2022 PLT 308 10/29/2022 MCV 92.0 10/29/2022 MCH 29.4 10/29/2022 MCHC 31.9 10/29/2022 RDW 13.7 10/29/2022 [ BMP: Lab Results Component Value Date NA 141 10/29/2022 K 4.8 10/29/2022 CL 110 (H) 10/29/2022 CO2 21 (L) 10/29/2022 BUN 42 (H) 10/29/2022 CREATININE 1.58 (H) 10/29/2022 GLUCOSE 160 (H) 10/29/2022 CALCIUM 9.6 10/29/2022 ANIONGAP 10 10/29/2022 MG/PHOS: No results found for: MG, PHOS CKMB: No components found for: CKMB;2 PT/INR: No results found for: LABPROT, INR CMP: Lab Results Component Value Date NA 141 10/29/2022 K 4.8 10/29/2022 CL 110 (H) 10/29/2022 CO2 21 (L) 10/29/2022 BUN 42 (H) 10/29/2022 CREATININE 1.58 (H) 10/29/2022 GLUCOSE 160 (H) 10/29/2022 CALCIUM 9.6 10/29/2022 ANIONGAP 10 10/29/2022 LFT's: No results found for: ALB, PROT Ionized Calcium: No components found for: IONCA ABG: No results found for: PHART, [id number], PO2ART, UWL1YAV, BEART, E8YDTORM HgBA1c: No results found for: HGBA1C Lipid Panel: No results found for: CHOL, TRIG, HDL TSH: No results found for: TSH Imaging and other studies: Assessment and Plan: Acute CVA Patient found to have a right acute on chronic MCA stroke and a SHEA ischemic stroke Patient received tPA in the ER Patient was admitted to the neuro ICU Patient was started on aspirin and Plavix Secondary stroke workup was completed Patient will be on 90 days of aspirin Plavix, end date 01/18/2023 Continue physical therapy Continue occupational therapy Physical medicine physician to oversee overall rehab program Hypertension Continue amlodipine 10 mg daily CAD Continue aspirin, coreg, plavix COPD Continue airduo Dysphagia Speech therapy DVT prophylaxis Continue heparin Code status Full code Comprehensive Rehab Program (including but not limited to): --Nursing: working on bowel and bladder continence, skin integrity, carry over from therapies, environmental safety, and providing patient and family education. --Physical and Occupational Therapy: working on strength, endurance, balance, gait, and technique to improve safety and independence with ADLs and Mobility. --ST: working on oral-motor control, executive skills, memory, orientation, and cognitive skills. --Speech/Nutrition: to evlauated nutritional status, best diet, BMI evalaution --Film Examiner: discharge plans in the context of social, family, and discharge needs to help coordinate a safe discharge. --Neuropsychology (if applicable): tracking cognitive progress, evaluate memory, behavior, and cognitive function. guide patient and team toward better outcomes through understanding of behavioral and cognitive impairments and the obstacles that manifest by them --Rehabilitation Physician: to determine rehabilitation needs medical rehabilitation needs, will beseen by a roofing contractor at a minimum of 3 times a week. The rehabilitation physician will coordinate care and help manage/prevent complications as a result of the patient???s illness and impairments The patient will receive 24 hour/day rehabilitation nursing supervision along with medical oversight by the medical and rehabilitation physicians to monitor for complications, changes in status, and determine the most appropriate medications to optimize function. The medical team will manage comorbidities and minimize complications such as dehydration, hypoglycemia, aspiration, pneumonia, uncontrolled BP, skin breakdown, contractures, and pain. In combination with intensive, comprehensive and multidisciplinary therapies to optimize function and long-term physical, cognitive, emotional and medical well-being. The patient will expected to participate and receive intensive therapy (an average of 3 hours per day of an average of 5 days weekly) not available in other settings in the inpatient rehabilitation program. The patient???s care will be coordinated through an interdisciplinary team with frequent steam hammer operator interactions and weekly conferences. An individualized plan of care with a minimum of two rehab therapies will be developed for the patient. Please refer to the In[facility]???s Post Admission Note determining the medical necessity as outlined in the [facility] documents to support admission for Acute Inpatient Rehabilitation Electronically signed by: MARION PERRY MD CC: No primary care provider on file. . documented in this encounter Consult Notes * Sacha Ruby, - 11/18/2022 6:21 PM CDTAssociated Order(s): IP CONSULT [place] [facility] [place] [facility] 24-hour Physician Line: [phone] Date: 11/18/2022 Hospital Day: Hospital Day: Patient name: Esperanza Chaparro Room number: 319/319-2 Attending: Carolina Garibay MD Reason for consult: Hyperkalemia ASSESSMENT Hyperkalemia: Differential includes medication induced (RAAS blockade), hyporeninemic hypoaldosteronism or other adrenal insufficiency, volume depletion, CKD (Cr may be falsely low due to sarcopenia) Hypercalcemia: Differential includes volume depletion, adrenal insufficiency, hyperparathyroidism, malignancy, and other. Acute kidney injury: B/l Cr 0.9-1.1 mg/dL. Differential includes RAAS blockade, hypotension, bradycardia, and volume depletion. DM2 HTN CAD COPD JAMES PLAN Agree with saline. Increase to 125 ml/hr. Bladder scan checked, no evidence of urinary retention Check UA and urine electrolytes Check renin, aldosterone, and AM cortisol Check serum albumin Check CK Check LDH Obtain renal ultrasound Hold Vit D supplement pending improvement in hypercalcemia Give Lokelma only if K greater than 6 Clinical Summary: This is a 67-year-old man admitted to [facility] on 10/28/22 following hospitalization for acute on chronic right MCA and SHEA ischemic strokes with carotid stump syndrome, treated with tPA. He required intubation. He received Unasyn for peritonsillar abscess present on admission, and was noted to have asymptomatic bradycardia (first-degree AV block) while on outpatient carvedilol. Chronic comorbidities include CAD, COPD, HTN, DM2, JAMES, and history of colon cancer status post colectomy. Nephrology is consulted on day 21 of acute rehab for hyperkalemia. Subjective: Patient seen this afternoon. Per RN, he was more awake/alert earlier today. He received Flexeril and is currently lethargic and unable to participate in conversation. He does stay awake long enough to tell me he has had hyperkalemia in the past and is not aware of the cause. He does not think he takes any medications for this. He denies history of kidney stones or multiple bladder infections. He denies ever needing dialysis in the past. He denies hematuria, dysuria, or frothy urine. He denies frequent urination, difficulty voiding, or weak stream. He denies new fevers, joint pain or rash. ROS: Patient currently unable to participate due to somnolence Past Medical History Past Medical History: Diagnosis Date Cancer Heart disease Stroke Past Surgical History Past Surgical History: Procedure Laterality Date CARDIAC SURGERY COLON SURGERY HERNIA REPAIR Home Medications Prior to Admission medications Medication Sig Start Date End Date Taking? Authorizing Provider Brinzolamide-Brimonidine 1-0.2 % suspension Administer 1 drop into both eyes 3 (three) times a day.Yes Historical Provider, budesonide-formoterol (SYMBICORT) 160-4.5 MCG/ACT inhaler Inhale 2 puffs RT 2 (two) times a day. Yes Historical Provider, cabergoline (DOSTINEX) 0.5 MG tablet Take 0.5 tablets (0.25 mg total) by mouth 2 (two) times a week. Yes Historical Provider, carboxymethylcellulose (Carboxymethylcellulose Sodium) solution Apply 1 drop (0.05 mL total) to both eyes 4 (four) times a day as needed for dry eyes. Yes Historical Provider, ergocalciferol (vitamin D2, Ergocalciferol,) 1.25 MG (92942 UT) capsule Take 1 capsule (50,000 Units total) by mouth once a week. Yes Historical Provider, melatonin tablet Take 8 tablets (8 mg total) by mouth nightly. Yes Historical Provider, Tiotropium [place] Monohydrate (Spiriva Respimat) 2.5 MCG/ACT aerosol solution Inhale 2 puffs (5 mcg total) RT Daily. Yes Historical Provider, Allergies Hydralazine, Metformin, Pioglitazone, Lisinopril, and Simvastatin Family History Family History Problem Relation Age of Onset No Known Problems Mother No Known Problems Father No Known Problems Sister No Known Problems Brother Social History reports that he has been smoking cigarettes. He started smoking about 40 years ago. He has a 15.00 pack-year smoking history. He has been exposed to tobacco smoke. He has never used smokeless tobacco. He reports that he does not drink alcohol and does not use drugs. OBJECTIVE Vital signs Patient Vitals for the past 24 hrs: BP Temp Temp src Pulse Resp SpO2 11/18/22 0839 140/72 98.1 ??F (36.7 ??C) Oral 80 18 97 % 11/17/22 1920 97/53 98.2 ??F (36.8 ??C) Oral 60 18 90 % 11/17/22 1704 122/72 -- -- 58 -- -- Scheduled Meds acetaminophen, 650 mg, Oral, Q8H BERNARDO aspirin, 81 mg, Oral, Once a day brimonidine, 1 drop, Both Eyes, 3 times per day carvedilol, 3.125 mg, Oral, 2 times per day nicotine, 21 mg, Transdermal, Once a day And Check Patch Placement, , Transdermal, 2 times per day cholecalciferol, 50,000 Units, Oral, Weekly clopidogrel, 75 mg, Oral, Once a day Fluticasone-Salmeterol, 1 puff, Inhalation, RT BID gabapentin, 200 mg, Oral, 3 times per day glipiZIDE, 5 mg, Oral, Once a day heparin (porcine), 5,000 Units, Subcutaneous, Q8H BERNARDO ketoconazole, , Topical, Once a day lidocaine, 3 patch, Transdermal, Once a day melatonin, 9 mg, Oral, Nightly muscle rub, , Topical, 2 times per day rosuvastatin, 40 mg, Oral, Once a day tamsulosin, 0.4 mg, Oral, After Breakfast Umeclidinium [place], 1 puff, Inhalation, RT Daily IV Meds sodium chloride infusion, Last Rate: 75 mL/hr (11/18/22 1235) PRN Meds bismuth subsalicylate, 30 mL, Q6H PRN cyclobenzaprine, 5 mg, TID PRN glucose, 15 g, PRN dextrose, 12.5 g, PRN Or dextrose, 25 g, PRN glucagon, 1 mg, PRN hemorrhoidal, , TID PRN ibuprofen, 200 mg, Q6H PRN ipratropium-albuterol, 3 mL, Q 4 hours PRN midodrine, 5 mg, Q8H PRN oxyCODONE, 5 mg, Q4H PRN polyethylene glycol, 17 g, BID PRN simethicone, 80 mg, 4x Daily PRN Labortory data Recent Labs Lab Units 11/18/22 0314 11/17/22 1246 11/16/22 0004 11/12/22 0010 SODIUM MMOL/L BLOOD mmol/L 136 -- 137 137 POTASSIUM MMOL/L BLOOD mmol/L 5.5* 5.6* 5.9* 5.0 CHLORIDE mmol/L 100 -- 99 105 CO2 mmol/L 26 -- 29 23 BUN MG/DL BLOOD mg/dL 63* -- 48* 33* CREATININE mg/dL 1.70* -- 1.64* 1.14 GLUCOSE MG/DL BLOOD mg/dL 122* -- 151* 125* CALCIUM MG/DL BLOOD mg/dL 9.9 -- 10.5* 9.0 Recent Labs Lab Units 11/16/22 1227 WBC X(10)9/L BLOOD x10E9/L 11.8* HGB GM/DL BLOOD gm/dL 11.1* HCT % BLOOD % 35.5 MCV FL BLOOD fl 94.4 MCH PG BLOOD pg 29.5 MCHC GM/DL BLOOD gm/dL 31.3 RDW-CV % BLOOD % 14.5 MPV FL BLOOD fl 8.8* PLT CT X(10)9/L BLOOD x10E9/L 278 No results found for: IRON, TIBC, FERRITIN Lab Results Component Value Date CALCIUM 9.9 11/18/2022 Physical Exam: General: Somnolent Neuro: Not currently following commands HEENT: NC/AT, no scleral icterus, MMM Chest: CTAB, no w/c/r CV: RRR, no murmurs noted, radial pulses equal bilaterally Abd: Soft, nondistended, nontender Extremities: No edema noted b/l SCOTT Orourke personally spent 50 minutes providing Nephrology-related care for this patient, including but notlimited to a [id number]-[id number] encounter, reviewing laboratory and imaging data, counseling the patient and/or family, and coordinating care with other health care providers. Thank you very much for the opportunity to help care for this patient. Please call any time with questions/concerns. Sacha Ruby DO, MBA Nephrology & Hypertension 24-Hr Exchange: [phone] * Shorty Menard DPM - 11/03/2022 5:20 PM CDTAssociated Order(s): IP CONSULT TO PODIATRY Podiatry Consultation Report Cc: At risk foot care. HPI: Patient is a 67 y.o. male presenting for at risk foot assessment and care. The patient has thick nails that have worsened over the past 2-3 months. No recent treatment to date. Past Medical History: Diagnosis Date Cancer Heart disease Stroke Past Surgical History: Procedure Laterality Date CARDIAC SURGERY COLON SURGERY HERNIA REPAIR Allergies Allergen Reactions Hydralazine Nausea And Vomiting Metformin Diarrhea Pioglitazone Nausea And Vomiting Lisinopril Rash Simvastatin Rash Pt reports hot flashes Current Facility-Administered Medications: acetaminophen (TYLENOL) tablet 650 mg, 650 mg, Oral, Q8H [facility], Marion Perry MD, 650 mg at 11/03/22 1544 Alogliptin Benzoate (NESINA) tablet 12.5 mg, 12.5 mg, Oral, Once a day, Soto Meng MD, 12.5 mg at11/03/22 0829 aspirin EC tablet 81 mg, 81 mg, Oral, Once a day, Marion Perry MD, 81 mg at 11/03/22 0829 bismuth subsalicylate (PEPTO BISMOL) 262 MG/15ML suspension 30 mL, 30 mL, Oral, Q6H PRN, Marion Perry MD calcium carbonate (TUMS) chewable tablet 1,000 mg, 1,000 mg, Oral, Q2H PRN, Marion Perry MD, 1,000 mg at 11/01/22 1313 carvedilol (COREG) tablet 3.125 mg, 3.125 mg, Oral, 2 times per day, Raul Vo MD, 3.125 mg at11/03/22 0828 nicotine (NICODERM CQ) patch 21 mg, 21 mg, Transdermal, Once a day, 21 mg at 11/03/22 0828 AND Check Patch Placement, , Transdermal, 2 times per day, Marion Perry MD, Check Patch Placement at 11/03/22 0831 cholecalciferol (VITAMIN D3) capsule 50,000 Units, 50,000 Units, Oral, Weekly, Soto Meng MD, 50,000 Units at 10/30/22 1100 clopidogrel (PLAVIX) tablet 75 mg, 75 mg, Oral, Once a day, Marion Perry MD, 75 mg at 11/03/22 0828 cyclobenzaprine (FLEXERIL) tablet 5 mg, 5 mg, Oral, TID PRN, Raul Vo MD, 5 mg at 11/01/22 1805 dextrose (GLUTOSE) 40 % oral gel 15 g, 15 g, Oral, PRN, Marion Perry MD dextrose 50 % IV solution 12.5 g, 12.5 g, Intravenous, PRN OR dextrose 50 % IV solution 25 g, 25 g, Intravenous, PRN, Marion Perry MD Fluticasone-Salmeterol (AIRDUO RESPICLICK) 232-14 MCG/ACT inhaler 1 puff, 1 puff, Inhalation, RT BID, Marion Perry MD, 1 puff at 11/03/22 0837 gabapentin (NEURONTIN) capsule 200 mg, 200 mg, Oral, 3 times per day, Marion Perry MD, 200 mgat 11/03/22 1545 glipiZIDE (GLUCOTROL) tablet 5 mg, 5 mg, Oral, Once a day, Soto Meng MD, 5 mg at 11/03/22 0829 glucagon injection reconstituted solution 1 mg, 1 mg, Intramuscular, PRN, Marion Perry MD hemorrhoidal ointment, , Apply externally, TID PRN, Marion Perry MD, Given at 10/30/22 1342 heparin (porcine) injection 5,000 Units, 5,000 Units, Subcutaneous, Q8H [facility]ERN[facility], Marion Perry MD,5,000 Units at 11/03/22 1544 ibuprofen (MOTRIN) tablet 200 mg, 200 mg, Oral, Q6H PRN, Carolina Garibay MD [START ON 11/04/2022] insulin lispro injection 0-12 Units, 0-12 Units, Subcutaneous, 2 times per dayAND [START ON 11/04/2022] POCT glucose, , , BID AC, Soto Meng MD ipratropium-albuterol (DUO-NEB) 0.5-2.5 mg/3 mL nebulizer solution 3 mL, 3 mL, Inhalation, Q 4 hours PRN, Marion Perry MD, 3 mL at 11/02/22 2344 [START ON 11/04/2022] ketoconazole (NIZORAL) 2 % cream, , Topical, Once a day, Shorty Menard DPM lidocaine (LIDOCARE) 4 % patch 1 patch, 1 patch, Transdermal, Once a day, Marion Perry MD, 1 patch at 11/03/22 0830 lidocaine (XYLOCAINE) 1 % injection 8 mL, 8 mL, Other, Once, Carolina Garibay MD losartan (COZAAR) tablet 25 mg, 25 mg, Oral, Once a day, Valencia Johnson MD, 25 mg at 11/03/22 0830 melatonin tablet 9 mg, 9 mg, Oral, Nightly, Marion Perry MD, 9 mg at 11/02/222137 oxyCODONE (ROXICODONE) immediate release tablet 5 mg, 5 mg, Oral, Q4H PRN, Carolina Garibay MD rosuvastatin (CRESTOR) tablet 40 mg, 40 mg, Oral, Once a day, Marion Perry MD, 40 mg at 11/03/22 0827 simethicone (MYLICON) chewable tablet 80 mg, 80 mg, Oral, 4x Daily PRN, Marion Perry MD, 80 mg at 10/31/22 1818 sodium chloride 0.9 % infusion, 100 mL/hr, Intravenous (Continuous Infusion), Continuous, Marion Perry MD, Last Rate: 100 mL/hr at 11/03/22 1548, 100 mL/hr at 11/03/22 1548 tamsulosin (FLOMAX) 24 hr capsule 0.4 mg, 0.4 mg, Oral, After Breakfast, Marion Perry MD, 0.4mg at 11/03/22 0827 triamcinolone acetonide (KENALOG-40) injection 40 mg, 40 mg, Intra-articular, Once, Carolina Garibay MD Umeclidinium [place] (INCRUSE ELLIPTA) 62.5 MCG/ACT inhaler 62.5 mcg, 1 puff, Inhalation, RT Daily,Marion Perry MD, 62.5 mcg at 11/03/22 0837 Family History Problem Relation Age of Onset No Known Problems Mother No Known Problems Father No Known Problems Sister No Known Problems Brother Social History Socioeconomic History Marital status: Single Tobacco Use Smoking status: Every Day Packs/day: 1.00 Years: 15.00 Pack years: 15.00 Types: Cigarettes Start date: 10/29/1982 Last attempt to quit: 10/23/2022 Years since quittin.0 Passive exposure: Past Smokeless tobacco: Never Substance and Sexual Activity Alcohol use: Never Drug use: Never Sexual activity: Not Currently Partners: Female ROS: Constitutional: Denies fevers. Denies chills. Cardiovascular: Denies chest pain. Denies palpitations. Gastrointestinal: Denies nausea. Denies vomiting. Genitourinary: Denies dysuria. Denies hematuria. Integument: Denies difficulty healing after cuts. Denies rashes. Musculoskeletal: Denies joint pain. Denies difficulty walking. Endocrine: Denies Dm. Denies thyroid dysfunction. Neurologic: + tingling and numbness in the feet. Denies weakness. Psyche: Denies Depression. Denies Schizophrenia. Physical Exam: Vitals: 11/03/22 0708 BP: 100/64 Pulse: 69 Resp: 19 Temp: 98.4 ??F (36.9 ??C) SpO2: 95% GENERAL: Conversant. NAD. PSYCHE: Alert and oriented to person,place, and time. Appropriate affect noted Lower extremity exam: VASCULAR: Dorsalis pedis pulse: Right 1/4 Left 1/4 Posterior tibial pulse: Right 0/4 Left 0/4 Capillary fill time is 4 seconds bilaterally. Patient shows: Color changes noted bilaterally. Decreased hair growth bilaterally. Thin atrophic skin bilaterally. No edema bilaterally. No varicosities bilaterally. LYMPHATICS: No lymphedema noted bilaterally. No painful popliteal or inguinal lymph nodes bilaterally. DERMATOLOGIC: The patient's toenails are hypertrophic, discolored, with subungual debris x 10 Mycotic: R 1 2 3 4 5 L 1 2 3 4 5 Elongated: R 1 2 3 4 5 L1 2 3 4 5 Hyperkeratotic lesion(s): none No paronychia bilaterally. No loosened nail plates bilaterally. No subungual hematomas noted bilaterally. + dry,scaly,cracked skin noted plantarly or dorsally bilaterally. No maceration noted bilaterally. No indurations bilaterally. No blistering noted bilaterally. No subcutaneous nodules noted bilaterally. No open wounds noted bilaterally NEUROLOGIC: Protective sensation is decreased with 5.07 SWMF bilaterally. Negstive babinski reflex bilaterally. Ankle clonus is absent bilaterally Manual Muscle Strength 5/5 bilaterally MUSCULOSKELETAL: No relevant deformities bilaterally. ROM is within normal limits at the ankle joint bilaterally. ROM is within normal limits at the subtalar joint bilaterally. ROM is within normal limits at the first MPJ bilaterally. Toes flex and extend normally bilaterally. ASSESSMENT: PVD Onychomycosis x10 Tinea Pedis b/l PLAN: PVD Onychomycosis x10 -Educated patient about foot care and risk of amputation. -Debrided mycotic nails x 10 to < 1mm thickness and length via manual and power debridement Tinea Pedis b/l -Rx ketoconazole 2% cream to be applied to plantar feet daily Follow up with Dr. Oro 1-2 weeks after discharge from rehab. Thank you for the consultation * Lory Valdes, PhD - 11/02/2022 5:05 PM CDTAssociated Order(s): IP CONSULT TO NEUROPSYCHOLOGY PSYCHOLOGY INITIAL EVALUATION SUBJECTIVE: Reason for Referral: Mr. Chaparro is a right handed, male referred for evaluation in order to evaluate cognition and address adjustment to impairment or loss of function. 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 [employer] [facility] Diagnosis: Principal Problem: Cerebrovascular accident Active Problems: Dysphagia Date of Onset: 6-5 Brain Imaging: Right MCA and right SHEA territory involvement Medical History (per record): Past Medical History: Diagnosis Date Cancer Heart disease Stroke Past Surgical History: Procedure Laterality Date CARDIAC SURGERY COLON SURGERY HERNIA REPAIR History of Psych Disorders and Substance Abuse: no history reported Current Medications: Current Facility-Administered Medications: acetaminophen (TYLENOL) tablet 650 mg, 650 mg, Oral, Q8H [facility], Marion Perry MD, 650 mg at 11/02/22 1451 Alogliptin Benzoate (NESINA) tablet 12.5 mg, 12.5 mg, Oral, Once a day, Soto Meng MD, 12.5 mg at11/02/22 0826 aspirin EC tablet 81 mg, 81 mg, Oral, Once a day, Marion Perry MD, 81 mg at 11/02/22 0826 bismuth subsalicylate (PEPTO BISMOL) 262 MG/15ML suspension 30 mL, 30 mL, Oral, Q6H PRN, Marion Perry MD calcium carbonate (TUMS) chewable tablet 1,000 mg, 1,000 mg, Oral, Q2H PRN, Marion Perry MD, 1,000 mg at 11/01/22 1313 carvedilol (COREG) tablet 3.125 mg, 3.125 mg, Oral, 2 times per day, Raul Vo MD, 3.125 mg at11/02/22 0852 nicotine (NICODERM CQ) patch 21 mg, 21 mg, Transdermal, Once a day, 21 mg at 11/02/22 0851 AND Check Patch Placement, , Transdermal, 2 times per day, Marion Perry MD, Check Patch Placement at 11/02/22 0832 cholecalciferol (VITAMIN D3) capsule 50,000 Units, 50,000 Units, Oral, Weekly, Soto Meng MD, 50,000 Units at 10/30/22 1100 clopidogrel (PLAVIX) tablet 75 mg, 75 mg, Oral, Once a day, Marion Perry MD, 75 mg at 11/02/22 0827 cyclobenzaprine (FLEXERIL) tablet 5 mg, 5 mg, Oral, TID PRN, Raul Vo MD, 5 mg at 11/01/22 1805 dextrose (GLUTOSE) 40 % oral gel 15 g, 15 g, Oral, PRN, Marion Perry MD dextrose 50 % IV solution 12.5 g, 12.5 g, Intravenous, PRN OR dextrose 50 % IV solution 25 g, 25 g, Intravenous, PRN, Marion Perry MD Fluticasone-Salmeterol (AIRDUO RESPICLICK) 232-14 MCG/ACT inhaler 1 puff, 1 puff, Inhalation, RT BID, Marion Perry MD, 1 puff at 11/02/22 0849 gabapentin (NEURONTIN) capsule 200 mg, 200 mg, Oral, 3 times per day, Marion Perry MD, 200 mgat 11/02/22 1505 glipiZIDE (GLUCOTROL) tablet 5 mg, 5 mg, Oral, Once a day, Soto Meng MD, 5 mg at 11/02/22 0848 glucagon injection reconstituted solution 1 mg, 1 mg, Intramuscular, PRN, Marion Perry MD hemorrhoidal ointment, , Apply externally, TID PRN, Marion Perry MD, Given at 10/30/22 1342 heparin (porcine) injection 5,000 Units, 5,000 Units, Subcutaneous, Q8H [facility], Marion Perry MD,5,000 Units at 11/02/22 1454 insulin lispro injection 0-12 Units, 0-12 Units, Subcutaneous, TID AC, 4 Units at 10/31/22 1523 AND POCT glucose, , , TID AC, Soto Meng MD ipratropium-albuterol (DUO-NEB) 0.5-2.5 mg/3 mL nebulizer solution 3 mL, 3 mL, Inhalation, Q 4 hours PRN, Marion Perry MD lidocaine (LIDOCARE) 4 % patch 1 patch, 1 patch, Transdermal, Once a day, Marion Perry MD, 1 patch at 11/02/22 0850 [START ON 11/03/2022] lidocaine (XYLOCAINE) 1 % injection 8 mL, 8 mL, Other, Once, Carolina Garibay MD losartan (COZAAR) tablet 25 mg, 25 mg, Oral, Once a day, Valencia Johnson MD, 25 mg at 11/02/22 0830 melatonin tablet 9 mg, 9 mg, Oral, Nightly, Marion Perry MD, 9 mg at 11/01/22 2121 oxyCODONE (ROXICODONE) immediate release tablet 5 mg, 5 mg, Oral, Q4H PRN, Marion Perry MD, 5mg at 11/02/22 0849 rosuvastatin (CRESTOR) tablet 40 mg, 40 mg, Oral, Once a day, Marion Perry MD, 40 mg at 11/02/22 0826 simethicone (MYLICON) chewable tablet 80 mg, 80 mg, Oral, 4x Daily PRN, Marion Perry MD, 80 mg at 10/31/22 1818 sodium chloride 0.9 % infusion, 100 mL/hr, Intravenous (Continuous Infusion), Continuous, Marion Perry MD, Last Rate: 100 mL/hr at 11/02/22 0329, 100 mL/hr at 11/02/22 0329 tamsulosin (FLOMAX) 24 hr capsule 0.4 mg, 0.4 mg, Oral, After Breakfast, Marion Perry MD, 0.4mg at 11/02/22 0825 [START ON 11/03/2022] triamcinolone acetonide (KENALOG-40) injection 40 mg, 40 mg, Intra-articular, Once, Carolina Garibay MD Umeclidinium [place] (INCRUSE ELLIPTA) 62.5 MCG/ACT inhaler 62.5 mcg, 1 puff, Inhalation, RT Daily,Marion Perry MD, 62.5 mcg at 11/02/22 0849 Living Arrangement: With his sister Smoking: Yes, reports current cravings despite nicotine replacement Behavior and Appearance: Alert but appeared to be fatigued Speech: dysarthric and minimal Articulation: moderately impaired Fluency: mildly impaired Repetition: no impairment noted Comprehension; no impairment noted Pain: location back, shoulders, foot Neurovegetative Symptoms: none reported Affective Range: restricted Affective Quality: irritable Patient reports mood as not very good, and cited his pain as a source of distress The patient explicitly denied suicidal ideation and explicitly denied suicidal intent. He expressed some uncertainty about whether he would probably benefit from participation in rehabilitation; he was unable to identify any progress so far Patient reports cognitive change? (describe if yes): No OBJECTIVE: Cognitive Assessment: Mini Mental Status Exam prorated score 25 / 30 T (age and edu) = 29 (- 2 SD) Domains Assessed: Orientation: oriented to person and circumstance Attention: mildly impaired Comprehension: no impairment noted Repetition: no impairment noted Naming: no impairment noted Memory: mildly impaired Registration: 3/3 Free Recall: 2/3 Visual spatial perception: decreased attention to left space Social Judgment: mildly impaired Executive Functioning: mildly impaired Decreased insight Reduced speed of processing Mood Rating: Geriatric Depression Scale, Score +5/5, Moderate Depression ASSESSMENT: Moderate cognitive, perceptual and communication impairment without apparent insight The patient endorsed moderate depression symptoms with particular distress with craving nicotine and with his experience of pain He expressed doubts about the likely benefit to him of rehabilitation therapies Ability and willingness to work towards goals, receptivity to psychological support and plan of care :Fair PLAN: The patient's concerns were discussed supportively Encouraged smoking cessation efforts to mitigate the risk of stroke recurrence. individual intervention Goals: Patient to show initial understanding of and adjustment to stroke Active participation in all therapies Recommendations for Treatment Team: Recommendations for Perception, Praxis and Problem Solving: Reinforce verbal self cues for attention to the left Recommendations for Memory: Emphasize over-learned tasks such as basic self care Allow increased practice to facilitate encoding of novel information and unfamiliar tasks Recommendations for Insight: Provide gentle but accurate feedback Encourage patient to rely on trusted others about current ability level with specific activities Recommendations for Self Efficacy: Involve patient in rehab goal-setting, especially short term goal-setting Review patients (quantitative) progress Thank you for the opportunity to participate in your patient's care. If there are any questions about the assessment or recommendations, please do not hesitate to call. LORY VALDES, PhD 11/02/2022 5:05 PM CDT * Carolina Garibay MD - 10/29/2022 9:52 AM CDT Physical Medicine and Rehabilitation History and Physical Patient Name: Esperanza Chaparro Admission Date and Time: 10/28/2022 9:05 PM Room Number: 319/319-2 Subjective Chief Complaint: left side weakness . Admission Diagnoses: Patient Active Problem List Diagnosis Cerebrovascular accident Chronic obstructive pulmonary disease Coronary arteriosclerosis Primary hypertension Dysphagia History of present illness: HPI 67 year old male with past medical history of CAD, COPD , hypertension, diabetes, sleep apnea, colon cancer s/p colectomy transferred to [facility] ER for neuro deficits Imaging confirmed Acute on chronic Rt MCA and SHEA ischemic stroke. Pt got tPA in ER and was admitted to neuro ICU. Pt kept on ASA, Plavix (to complete 90 days-EOT 01/18/23), Statin, Jardiance, Seen by neurology , secondary stroke work up completed . pt finished course of Unasyn for peritonsillar abscess. evaluated by therapy and recommend rehab for functional deficits. admitted to [facility] acute inpatient rehab for medical management and rehab Subjective Past Medical History: Diagnosis Date Cancer Heart disease Stroke Past Surgical History: Procedure Laterality Date CARDIAC SURGERY COLON SURGERY HERNIA REPAIR Family History Problem Relation Age of Onset No Known Problems Mother No Known Problems Father No Known Problems Sister No Known Problems Brother Social history: Support System and Family Circumstances (i.e., potential caregivers): children / family / friends to help, patient and sister Social History Substance and Sexual Activity Alcohol Use Never Social History Tobacco Use Smoking Status Every Day Packs/day: 1.00 Years: 15.00 Pack years: 15.00 Types: Cigarettes Start date: 10/29/1982 Last attempt to quit: 10/23/2022 Years since quittin.0 Passive exposure: Past Smokeless Tobacco Never Vaping Use Vaping Status Not on file Social History Substance and Sexual Activity Drug Use Never Functional Status: Premorbid Functional Status: Patient is independent with mobility/ambulation, transfers, ADL's, IADL's. Current Functional status: As per acute care facility documentation Supine to Sit: Maximum Assistance;X 2; Sit to Supine: Maximum Assistance; Transfers: Sit to Stand: Maximum Assistance;X 2; Stand to Sit: Maximum Assistance;X 2; Home Environment / Accessibility: home with five steps to enter Review of Systems: Review of Systems Constitutional: Positive for fatigue. HENT: Negative for congestion. Eyes: Negative for discharge. Respiratory: Negative for apnea. Cardiovascular: Positive for leg swelling. Gastrointestinal: Negative for abdominal distention. Genitourinary: Negative for difficulty urinating. Musculoskeletal: Positive for arthralgias. Skin: Negative for color change. Neurological: Positive for weakness. Psychiatric/Behavioral: The patient is nervous/anxious. Medications/Allergies: Medications Prior to Admission Medication Sig Dispense Refill Last Dose Brinzolamide-Brimonidine 1-0.2 % suspension Administer 1 drop into both eyes 3 (three) times a day. budesonide-formoterol (SYMBICORT) 160-4.5 MCG/ACT inhaler Inhale 2 puffs RT 2 (two) times a day. cabergoline (DOSTINEX) 0.5 MG tablet Take 0.5 tablets (0.25 mg total) by mouth 2 (two) times a week. carboxymethylcellulose (Carboxymethylcellulose Sodium) solution Apply 1 drop (0.05 mL total) to both eyes 4 (four) times a day as needed for dry eyes. ergocalciferol (vitamin D2, Ergocalciferol,) 1.25 MG (27045 UT) capsule Take 1 capsule (50,000 Units total) by mouth once a week. melatonin tablet Take 8 tablets (8 mg total) by mouth nightly. Tiotropium [place] Monohydrate (Spiriva Respimat) 2.5 MCG/ACT aerosol solution Inhale 2 puffs (5 mcg total) RT Daily. Current Facility-Administered Medications: acetaminophen (TYLENOL) tablet 650 mg, 650 mg, Oral, Q8H [facility], Marion Perry MD, 650 mg at 10/29/22 0558 Alogliptin Benzoate (NESINA) tablet 12.5 mg, 12.5 mg, Oral, Once a day, Soto Meng MD, 12.5 mg at10/29/22 1038 amLODIPine (NORVASC) tablet 10 mg, 10 mg, Oral, Once a day, Marion Perry MD aspirin EC tablet 81 mg, 81 mg, Oral, Once a day, Marion Perry MD, 81 mg at 10/29/22 1039 bismuth subsalicylate (PEPTO BISMOL) 262 MG/15ML suspension 30 mL, 30 mL, Oral, Q6H PRN, Marion Perry MD calcium carbonate (TUMS) chewable tablet 1,000 mg, 1,000 mg, Oral, Q2H PRN, Marion Perry MD carvedilol (COREG) tablet 6.25 mg, 6.25 mg, Oral, 2 times per day, Marion Perry MD nicotine (NICODERM CQ) patch 21 mg, 21 mg, Transdermal, Once a day, 21 mg at 10/29/22 1038 AND Check Patch Placement, , Transdermal, 2 times per day, Marion Perry MD, Check Patch Placement at 10/29/22 1030 clopidogrel (PLAVIX) tablet 75 mg, 75 mg, Oral, Once a day, Marion Perry MD, 75 mg at 10/29/22 1037 dextrose (GLUTOSE) 40 % oral gel 15 g, 15 g, Oral, PRN, Marion Perry MD dextrose 50 % IV solution 12.5 g, 12.5 g, Intravenous, PRN OR dextrose 50 % IV solution 25 g, 25 g, Intravenous, PRN, Marion Perry MD Empagliflozin (JARDIANCE) tablet 25 mg, 25 mg, Oral, Once a day, Mraion Perry MD, 25 mg at 10/29/22 1042 Fluticasone-Salmeterol (AIRDUO RESPICLICK) 232-14 MCG/ACT inhaler 1 puff, 1 puff, Inhalation, RT BID, Marion Perry MD, 1 puff at 10/29/22 1026 gabapentin (NEURONTIN) capsule 200 mg, 200 mg, Oral, 3 times per day, Marion Perry MD, 200 mgat 10/29/22 1041 glucagon injection reconstituted solution 1 mg, 1 mg, Intramuscular, PRN, Marion Perry MD hemorrhoidal ointment, , Apply externally, TID PRN, Marion Perry MD heparin (porcine) injection 5,000 Units, 5,000 Units, Subcutaneous, Q8H BERNARDO, Marion Perry MD,5,000 Units at 10/29/22 0559 insulin glargine (LANTUS) injection 10 Units, 10 Units, Subcutaneous, Once a day, Marion Perry MD, 10 Units at 10/29/22 1040 insulin lispro injection 0-12 Units, 0-12 Units, Subcutaneous, TID AC, 2 Units at 10/29/22 1255 AND POCT glucose, , , AC & HS, Marion Perry MD ipratropium-albuterol (DUO-NEB) 0.5-2.5 mg/3 mL nebulizer solution 3 mL, 3 mL, Inhalation, Q 4 hours PRN, Marion Perry MD lidocaine (LIDOCARE) 4 % patch 1 patch, 1 patch, Transdermal, Once a day, Marion Perry MD, 1 patch at 10/29/22 1043 losartan (COZAAR) tablet 50 mg, 50 mg, Oral, Once a day, Marion Perry MD melatonin tablet 9 mg, 9 mg, Oral, Nightly, Marion Perry MD, 9 mg at 10/28/22 2149 oxyCODONE (ROXICODONE) immediate release tablet 5 mg, 5 mg, Oral, Q4H PRN, Marion Perry MD, 5mg at 10/29/22 1254 rosuvastatin (CRESTOR) tablet 40 mg, 40 mg, Oral, Once a day, Marion Perry MD, 40 mg at 10/29/22 1038 simethicone (MYLICON) chewable tablet 80 mg, 80 mg, Oral, 4x Daily PRN, Marion Perry MD sodium chloride 0.9 % infusion, 100 mL/hr, Intravenous (Continuous Infusion), Continuous, Marion Perry MD, Last Rate: 100 mL/hr at 10/29/22 1210, 100 mL/hr at 10/29/22 1210 tamsulosin (FLOMAX) 24 hr capsule 0.4 mg, 0.4 mg, Oral, After Breakfast, Marion Perry MD, 0.4mg at 10/29/22 1037 Umeclidinium [place] (INCRUSE ELLIPTA) 62.5 MCG/ACT inhaler 62.5 mcg, 1 puff, Inhalation, RT Daily,Marion Perry MD, 62.5 mcg at 10/29/22 1025 Allergies Allergen Reactions Hydralazine Nausea And Vomiting Metformin Diarrhea Pioglitazone Nausea And Vomiting Lisinopril Rash Simvastatin Rash Pt reports hot flashes Objective Vital Signs: Temp: [97.4 ??F (36.3 ??C)-98.7 ??F (37.1 ??C)] 97.4 ??F (36.3 ??C) Pulse: [48-64] 48 Resp: [17-18] 18 BP: (67-138)/(6-78) 101/59 Ht./ Wt./ BMI: Height: 5' 11 (180.3 cm) Weight: 228 lb 4 oz (103.5 kg) Body mass index is 31.83 kg/m??. Physical Exam: Physical Exam HENT: Head: Normocephalic. Nose: No congestion. Mouth/Throat: Mouth: Mucous membranes are moist. Cardiovascular: Rate and Rhythm: Normal rate. Abdominal: General: There is no distension. Musculoskeletal: General: Swelling present. Cervical back: No rigidity. Skin: Coloration: Skin is not jaundiced. Neurological: Mental Status: He is alert. Motor: Weakness present. Neurologic Exam Ortho Exam Objective , Imaging: No results found. Labs: Admission on 10/28/2022 Component Date Value Ref Range Status Glucose Blood, POC 10/28/2022 169 70 - 120 mg/dL Final Glucose Blood, POC 10/29/2022 188 70 - 120 mg/dL Final Glucose Blood, POC 10/29/2022 179 70 - 120 mg/dL Final WBC X(10)9/L Blood 10/29/2022 8.7 4.4 - 10.7 x10E9/L Final Rbc X(10)12/L Blood 10/29/2022 3.64 (L) 3.80 - 5.40 x10E12/L Final HGB gm/dL Blood 10/29/2022 10.7 (L) 12.0 - 17.6 gm/dL Final HCT % Blood 10/29/2022 33.5 (L) 35.2 - 51.7 % Final MCV fL Blood 10/29/2022 92.0 80.7 - 98.3 fl Final MCH pg Blood 10/29/2022 29.4 26.7 - 34.0 pg Final MCHC gm/dL Blood 10/29/2022 31.9 30.8 - 35.9 gm/dL Final Plt Ct X(10)9/L Blood 10/29/2022 308 153 - 416 x10E9/L Final RDW-Cv % Blood 10/29/2022 13.7 12.1 - 14.9 % Final MPV fL Blood 10/29/2022 9.1 (L) 9.4 - 12.9 fl Final Glucose mg/dL Blood 10/29/2022 160 (H) 70 - 105 mg/dL Final Sodium mmol/L Blood 10/29/2022 141 136 - 145 mmol/L Final Potassium mmol/L Blood 10/29/2022 4.8 3.5 - 5.1 mmol/L Final Chloride 10/29/2022 110 (H) 98 - 107 mmol/L Final CO2 10/29/2022 21 (L) 23 - 31 mmol/L Final Calcium mg/dL Blood 10/29/2022 9.6 8.4 - 10.4 mg/dL Final Anion Gap Blood 10/29/2022 10 8 - 18 mmol/L Final Bun mg/dL Blood 10/29/2022 42 (H) 8.4 - 25.7 mg/dL Final Creatinine 10/29/2022 1.58 (H) 0.72 - 1.25 mg/dL Final EGFRCR CKD-EPI 10/29/2022 48 (L) >=90 mL/min/1.73 m2 Final I personally reviewed the available referring hospital documentation. I have summarized pertinent findings in my review of the referring hospital chart documentation in the HPI above. Assessment/Plan Patient to be admitted to address functional deficits and for management of medical comorbidity related to Cerebrovascular accident, and for rehabilitation and medical issues related to Cerebrovascular accident and Patient Active Problem List Diagnosis Cerebrovascular accident Chronic obstructive pulmonary disease Coronary arteriosclerosis Primary hypertension Dysphagia . We will provide comprehensive inpatient rehabilitation, which may include PT, OT, RT, OIL GAS AND PIPE TESTER, and supportive services to improve functional outcome of impaired mobility, ADLs, transfers, and self-care. Patient requires 3 hours of therapy daily for gait, balance, ADL deficits that cannot be adequatelytreated at a lesser level of care. Assessment: Patient Active Problem List Diagnosis Cerebrovascular accident Chronic obstructive pulmonary disease Coronary arteriosclerosis Primary hypertension Dysphagia Cerebrovascular accident PT, OT for gait training and ADL training, Nursing for bowel , bladder and wound care. Speech therapy for swallow evaluation and cognitive evaluation. # acute ischemic stroke with residual L sided hemiplegia ( dense ) Left face droop - risk factor modification - aspirin, Plavix 90 days, statin - gabapentin for neuropathy, 200 mg t.i.d., scheduled Tylenol # dysphagia secondary to stroke - OIL GAS AND PIPE TESTER following. On modified diet # DMII - Lantus Jardiance, SSI # HTN - continue amlodipine and losartan #CAD s/p PCI - continue ASA, statin # COPD - home inhalers, duonebs prn Skin/Wounds: - Skin integrity and Pressure ulcer prevention: frequent repositioning and adequate pressure relief. Maintain clean, dry skin. If needed, q2 hour turns when in bed and regular skin checks, application of protective barrier cream, toileting schedule. Wound RN consult Bowel & Bladder - monitor bowel movement - adjust scheduled and PRN bowel regimen as needed - monitor for adequate urinary output - should suspicion for urinary retention arise, PVR of random bladder scan will be performed for further assessment Medical plan: 1. Plan is to be admitted to acute rehabilitation to address deficits related to Cerebrovascular accident . 2. Physiatry for medical coordination and oversight during the rehabilitation process. 3. Patient has been referred by [facility]. 4. PT and OT to address gross motor skills, transfers and self-care. 5. Neuropsychology for adjustment and coping if needed. 6. OIL GAS AND PIPE TESTER for cognition, swallowing and communication if needed. 7. Rehabilitation nursing to provide 24-hour nursing care and carry over of rehabilitation techniques. 8. Ongoing patient education to facilitate discharge home. 9. The patient will be a Full Resuscitation 10. The patient has the following allergies: Allergies Allergen Reactions Hydralazine Nausea And Vomiting Metformin Diarrhea Pioglitazone Nausea And Vomiting Lisinopril Rash Simvastatin Rash Pt reports hot flashes Precautions: Fall/ Safety Goals: Mobility: mod I Transfers: mod I Self-Care: I Prognosis: At the current time, this inpatient hospital rehabilitation stay is medically necessary to achieve important health and functional goals. The patient requires frequent physician visits, 24-hour rehabilitation nursing, and a coordinated intensive rehabilitation program as described above to address complex medical, nursing, and rehabilitation needs. The patient has a good prognosis for benefiting from this program and returning home and community. Estimated Length of Stay: 2-3 weeks Currently, patient requires close medical supervision by a rehabilitation physician as well as 24 hour specialized rehabilitative nursing at the inpatient acute rehabilitation intensity level of careto address current medical, functional and mobility deficits as a direct result of Cerebrovascular accident and medical comorbid conditions Given the information presented and findings noted, the patient exhibits a decline in functional status and would benefit from acute inpatient rehabilitation. These impairments impact patient???s ability to safely perform daily activities and mobility tasks. The patient requires an intensive, comprehensive interdisciplinary program to improve functional abilities and level of independence with overall goal of returning home. Moreover, the patient???s need for close medical oversight and specialized rehabilitation nursing at an inpatient rehabilitation level of care is required to not only manage co-morbidities stated below but also to mitigate the risk of infection, falls and readmission to an acute care hospital and other life threatening conditions. Patient requires close medical management which cannot be provided at a lower level of care, such as a ch[facility] facility, where there is a lack of specialized interdisciplinary team comprised of rehabilitation physicians, nurses, and therapists. CAROLINA GARIBAY MD 10/29/22 1:21 PM CDT * Soto Meng MD - 10/29/2022 6:01 AM CDT ENDOCRINOLOGY CONSULTATION Patient Name: Esperanza Chaparro : 1955 Medical Record: [id number] DATE OF SERVICE 10/29/2022 PRIMARY CARE PHYSICIAN No primary care provider on file. ATTENDING PHYSICIAN Carolina Garibay MD CONSULTING PHYSICIAN SOTO MENG MD REASON FOR CONSULT Consult for type 2 diabetes uncontrolled, glucoses are variable Increased body weight He is to give history, status post CVA HISTORY OF PRESENT ILLNESS The patient is a 67 y.o. y/o male with past medical history of CAD, COPD , hypertension, diabetes, sleep apnea, colon cancer s/p colectomy transferred to [facility] ER for neuro deficits Imaging confirmed Acute on chronic Rt MCA and SHEA ischemic stroke. Pt got tPA in ER and was admitted to neuro ICU. Pt kept on ASA, Plavix (to complete 90 days-EOT 01/18/23), Statin, Jardiance, Seen by neurology , secondary stroke work up completed . pt finished course of Unasyn for peritonsillar abscess. evaluated by therapy and recommend rehab for functional deficits. admitted to [facility] acute inpatient rehab for medical management and rehab PAST MEDICAL HISTORY Past Medical History: Diagnosis Date Cancer Heart disease Stroke PAST SURGICAL HISTORY Past Surgical History: Procedure Laterality Date CARDIAC SURGERY COLON SURGERY HERNIA REPAIR ALLERGIES Allergies Allergen Reactions Hydralazine Nausea And Vomiting Metformin Diarrhea Pioglitazone Nausea And Vomiting Lisinopril Rash Simvastatin Rash Pt reports hot flashes HOME MEDICATIONS Prior to Admission medications Medication Sig Start Date End Date Taking? Authorizing Provider Brinzolamide-Brimonidine 1-0.2 % suspension Administer 1 drop into both eyes 3 (three) times a day.Yes Historical Provider, budesonide-formoterol (SYMBICORT) 160-4.5 MCG/ACT inhaler Inhale 2 puffs RT 2 (two) times a day. Yes Historical Provider, cabergoline (DOSTINEX) 0.5 MG tablet Take 0.5 tablets (0.25 mg total) by mouth 2 (two) times a week. Yes Historical Provider, carboxymethylcellulose (Carboxymethylcellulose Sodium) solution Apply 1 drop (0.05 mL total) to both eyes 4 (four) times a day as needed for dry eyes. Yes Historical Provider, ergocalciferol (vitamin D2, Ergocalciferol,) 1.25 MG (37540 UT) capsule Take 1 capsule (50,000 Units total) by mouth once a week. Yes Historical Provider, melatonin tablet Take 8 tablets (8 mg total) by mouth nightly. Yes Historical Provider, Tiotropium [place] Monohydrate (Spiriva Respimat) 2.5 MCG/ACT aerosol solution Inhale 2 puffs (5 mcg total) RT Daily. Yes Historical Provider, CURRENT MEDICATIONS Current Facility-Administered Medications: acetaminophen (TYLENOL) tablet 650 mg, 650 mg, Oral, [facility], Marion Perry MD, 650 mg at 10/29/22 0558 amLODIPine (NORVASC) tablet 10 mg, 10 mg, Oral, Once a day, Marion Perry MD aspirin EC tablet 81 mg, 81 mg, Oral, Once a day, Marion Perry MD bismuth subsalicylate (PEPTO BISMOL) 262 MG/15ML suspension 30 mL, 30 mL, Oral, Q6H PRN, Marion Perry MD calcium carbonate (TUMS) chewable tablet 1,000 mg, 1,000 mg, Oral, Q2H PRN, Marion Perry MD carvedilol (COREG) tablet 6.25 mg, 6.25 mg, Oral, 2 times per day, Marion Perry MD nicotine (NICODERM CQ) patch 21 mg, 21 mg, Transdermal, Once a day AND Check Patch Placement, ,Transdermal, 2 times per day, Marion Perry MD clopidogrel (PLAVIX) tablet 75 mg, 75 mg, Oral, Once a day, Marion Perry MD dextrose (GLUTOSE) 40 % oral gel 15 g, 15 g, Oral, PRN, Marion Perry MD dextrose 50 % IV solution 12.5 g, 12.5 g, Intravenous, PRN OR dextrose 50 % IV solution 25 g, 25 g, Intravenous, PRN, Marion Perry MD Empagliflozin (JARDIANCE) tablet 25 mg, 25 mg, Oral, Once a day, Marion Perry MD Fluticasone-Salmeterol (AIRDUO RESPICLICK) 232-14 MCG/ACT inhaler 1 puff, 1 puff, Inhalation, RT BID, Marion Perry MD, 1 puff at 10/28/22 214 gabapentin (NEURONTIN) capsule 200 mg, 200 mg, Oral, 3 times per day, Marion Perry MD, 200 mgat 10/28/22 2148 glucagon injection reconstituted solution 1 mg, 1 mg, Intramuscular, PRN, Marion Perry MD heparin (porcine) injection 5,000 Units, 5,000 Units, Subcutaneous, Q8H BERNARDO, Marion Perry MD,5,000 Units at 10/29/22 0559 insulin glargine (LANTUS) injection 10 Units, 10 Units, Subcutaneous, Once a day, Marion Perry MD insulin lispro injection 0-12 Units, 0-12 Units, Subcutaneous, TID AC AND POCT glucose, , , AC & HS, Marion Perry MD ipratropium-albuterol (DUO-NEB) 0.5-2.5 mg/3 mL nebulizer solution 3 mL, 3 mL, Inhalation, Q 4 hours PRN, Marion Perry MD lidocaine (LIDOCARE) 4 % patch 1 patch, 1 patch, Transdermal, Once a day, Marion Perry MD losartan (COZAAR) tablet 50 mg, 50 mg, Oral, Once a day, Marion Perry MD melatonin tablet 9 mg, 9 mg, Oral, Nightly, Marion Perry MD, 9 mg at 10/28/222148 oxyCODONE (ROXICODONE) immediate release tablet 5 mg, 5 mg, Oral, Q4H PRN, Marion Perry MD, 5mg at 10/29/22213 rosuvastatin (CRESTOR) tablet 40 mg, 40 mg, Oral, Once a day, Marion Perry MD simethicone (MYLICON) chewable tablet 80 mg, 80 mg, Oral, 4x Daily PRN, Marion Perry MD tamsulosin (FLOMAX) 24 hr capsule 0.4 mg, 0.4 mg, Oral, After Breakfast, Marion Perry MD Umeclidinium [place] (INCRUSE ELLIPTA) 62.5 MCG/ACT inhaler 62.5 mcg, 1 puff, Inhalation, RT Daily,Marion Perry MD CURRENT DIET Dietary Orders (From admission, onward) Start Ordered 10/28/222111 Adult Diet Regular; 6 Soft & Bite-Sized (NDD III); 0 Thin (All Liquids) Diet effective now End/Expires: Until Specified References: [employer] Website Question Answer Comment Diet Type: Regular Diet Texture: 6 Soft & Bite-Sized (NDD III) Liquid Consistency: 0 Thin (All Liquids) 10/28/222110 SOCIAL HISTORY reports that he has been smoking cigarettes. He started smoking about 40 years ago. He has a 15.00 pack-year smoking history. He has been exposed to tobacco smoke. He has never used smokeless tobacco. He reports that he does not drink alcohol and does not use drugs. FAMILY HISTORY Family History Problem Relation Age of Onset No Known Problems Mother No Known Problems Father No Known Problems Sister No Known Problems Brother REVIEW OF SYSTEMS General: no weight loss, no fever, no chills, no anorexia Review of system is not available No intake or output data in the 24 hours ending 10/29/22 0601 PHYSICAL EXAM Vital Signs: Temp: [98.7 ??F (37.1 ??C)] 98.7 ??F (37.1 ??C) Pulse: [64] 64 Resp: [17] 17 BP: (138)/(78) 138/78 228 lb 4 oz (103.5 kg)5' 11 (1.803 m)Body mass index is 31.83 kg/m??. Constitutional: Healthy, no distress HENT: Normocephalic, Atraumatic, Bilateral external ears normal, Oropharynx moist, No oral exudates, No tenderness, neck supple. Eyes: PERRL, EOMI, Conjunctiva normal, No discharge. Lymphatic: No cervical or supraclavicular lymphadenopathy noted. Cardiovascular: Normal heart rate, Normal rhythm, No murmurs, No rubs, No gallops. Respiratory: Normal breath sounds, No respiratory distress, No wheezing, No rhonchi, No rales, No chest tenderness. GI: Bowel sounds normal, Soft, No tenderness, No rebound or guarding, No masses. Integument: Warm, Dry, No erythema, No rash. LABS Most recent labs reviewed. POC Glucose POC Glucose 10/29/22 0529 188 10/28/22 2137 169 Invalid input(s): AA, GLF, CA, NEOBIL IMAGING STUDIES & OTHER STUDIES Not applicable ASSESSMENT Active Problems: Cerebrovascular accident Type 2 diabetes uncontrolled Increased body weight, History of vitamin-D deficiency PLAN Optimize insulin, reviewed recent labs Review outside records as available Rehab per protocol Diet per nutrition services We will follow with you while The plan was discussed with the patient and/or family. Thank you for the Consult. Electronically signed by: SOTO MENG MD, 10/29/2022 6:01 AM CDT Time spent on counseling/coordination of care: 30 Minutes Total time spent with patient: 30 Minutes documented in this encounter Nursing Notes * Tania Pena RN - 11/20/2022 6:57 PM CDT [facility] now here to slat pickler patient. Discharge packet given to EMS. * Tania Pena RN - 11/20/2022 6:33 PM CDT Alert and pleasant. AVS discussed with patient. Full report given to nurse, Shanice at receiving facility, [facility]. Discharge packet containing inter facility transfer to be given tooncoming nurse. Last quoted ETA for [facility] ambulance from dispatch was 1830. * Hardeep Darby RN - 11/19/2022 2:40 AM CDT Pt alert and oriented times 4. Verbalizes needs without difficulty. Remains non compliant with turning and positioning and prefers to lay in a semi Calhoun's position leaning to the right . Pt demanded that heel protectors be remove from bilateral feet and agreed for pillow to be used to float heels. Pt declined education on the importance of repositioning and floating heels to decrease the rist of skin breakdown. Pr remains on a JOCY mattress. Pt resting in bed at this time with eyes closed. Respirations unlabored with symmetrical chest rise and fall. Call light and personal effects within reach. Appropriate precautions maintained. * Love Sellers RN - 11/18/2022 1:50 PM CDT Pt's potassium continued to be high in am. Dr. Milner aware. Bladder Scan=0. Suppository given with large BM results. * Hardeep Darby RN - 11/18/2022 6:06 AM CDT Follow up call placed to Dr Teresa Teckchandani regarding maximum recommended dose of Lokelma. Order received to discontinue 20 gm dose and give Lokelma 15 gm times 1. * Hardeep Darby RN - 11/18/2022 5:43 AM CDT Current and previous abnormal labs reviewed with Dr Teresa Milner. New orders received for Lokelma 20 mg po times 1, BMP at 3 pm today, and 0.9% Normal Saline at 75 ml/hr for 1 Liter. * Hardeep Darby RN - 11/18/2022 1:23 AM CDT Pt alert and oriented times 4. Verbalizes needs without difficulty. Non compliant with repositioning this shift stating it hurts to be touched. Scheduled Acetaminophen given. Difficulty with incontinent care because pt unable to turn in a lateral position and refused staff's assistance. Pt declined education on repositioning and skin/incontinent care and became loud and irritated with staff. Trouble Locator Test Desk notified and in to see pt and able to complete incontinent care. Pt resting in bed at this time with eyes closed. Arouses to tactile stimulus. Respirations unlabored with symmetrical chest riseand fall. Call light and personal effects within reach. Appropriate precautions maintained. * Love Sellers RN - 11/17/2022 3:23 PM CDT See MAR for pain medication- pt never altered level of pain of 10. Pain associated to which ever body part was being touched. Slightest touch would cause pt severe pain associated with L arm, L shoulder, back. Repeat K+ level 5.6 drawn from L FA -#[address] Milner notified-see orders * Cecily De La O RN - 11/17/2022 6:43 AM CDT Restful ,night. In no apparent distress at this time. * Mary Darby RN - 11/16/2022 1:17 PM CDT A/O- 4. Patient is cooperative but complains when touched to be repositioned. Aggravated. Pain level avg of: 8 L side of body VS stable. Appetite good GI: Last BM on 11/16 * Tania Pena RN - 11/13/2022 6:37 PM CDT AO4, but forgetful at times. Incontinent of bowel and bladder. BM this shift. Pain with turning andrepositioning lessened by scheduled tylenol and PRN Oxycodone three times this shift and relieved at rest. Midline dressing changed this evening, tolerated well. * Mary Darby RN - 11/12/2022 11:22 AM CDT A/O- 4. Patient is cooperative. Pain level avg of: 7 L side of body VS stable. Appetite good GI: Last BM on 11/11 * Mary Darby RN - 11/11/2022 12:54 PM CDT A/O- 4. Patient is cooperative. Pain level avg of: 8 L side from shoulder to leg VS stable. Appetite good GI: Last BM on 11/10 * Cecily De La O RN - 11/10/2022 6:07 AM CDT Restful night. In no apparent distress at this time. * Mary Darby RN - 11/09/2022 12:55 PM CDT A/O- 4. Patient is cooperative. Pain level avg of: 8 L side VS stable. Appetite fair GI: Last BM on 11/09 * Anne Marie Boyd RN - 11/08/2022 10:52 AM CDT Vitals: Stable, held scheduled BP meds due to order parameters. Pain Level: 5 Pain Location: L shoulder Repositioned patient, scheduled tylenol given. A&Ox4, forgetful Last BM: 11/07 Blood glucose monitored. Bladder scanning patient Q6. * Anne Marie Boyd RN - 11/07/2022 9:49 AM CDT Vitals: BP 100/51, held BP medications with parameter considerations Pain Level: 0 Pain Location: N/A A&Ox4, forgetful Last BM: 11/06 Nicotine patch applied to left arm. Bladder scan Q6. Blood glucose monitored BID. * Hardeep Darby RN - 11/07/2022 3:31 AM CDT Pt alert and oriented times 4 with some forgetfulness.. Verbalizes needs without difficulty. Deniespain.Resting in bed with eyes closed. Arouses to verbal stimulus. Call light and personal effects within reach. Appropriate precautions maintained. * Anne Marie Boyd RN - 11/05/2022 10:39 AM CDT Vitals: BP 186/75, scheduled BP medications administered. Will continue to monitor. Pain Level: 8 Pain Location: Generalized PRN oxycodone given, lidocaine patches applied to back. A&Ox4, delayed responses Last BM: 11/05, patient had not had a BM since 10/30 prior to today, now patient experiencing diarrhea. PRN pepto bismol given. Bladder scanning Q6 for retention. Normal saline continuous infusion running at 100 mL/hr. * Edenilson Jules RN - 11/04/2022 6:39 PM CDT Patint was weak today AOX3, many pain episodes,no distress VS in acceptable range, weak during therapies. NS running without problems, poor appetite,no BM * Nils Trevizo - 11/04/2022 7:19 AM CDT New orders miralax twice PRN.LBM 10/30 * Kate Blair RN - 11/03/2022 5:49 AM CDT 11/02/22 at 2344 patient complained of shortness of breadth oxygen saturation was 92% on room air patient given PRN Breathing treatment , 02 sats checked after breathing treatment and was 99% on room air * Keya Goodrich RN - 11/02/2022 6:59 PM CDT Patient alert oriented x4 voicing complaint of pain with every time he's touched medicated as ordered Up to therapy as ordered.No Bm this shift. Call light kept in reach * Brielle Becker RN - 11/02/2022 1:14 AM CDT Alert and oriented times 4, uncooperative at times. Delayed response. Pain under control, sleeping at this time. * Marciano Gottlieb RN - 11/01/2022 3:59 PM CDT No major changes from previous assessment, no new clinical issues. Pulse 50 around dinner time. Carvedilol held and parameter orders added in per Dr. Vo. Bladder scan's unremarkable. * Keya Goodrich RN - 10/31/2022 7:54 PM CDT Patient general status unchanged voicing complaint of pain with with repositioning.. Oriented x 4 more alert this shift. Left side remains flaccid, condom cath in place at start 1700 ml of urine emptied this am. Patient voicing generalized pain medicated as ordered. Call light in reach throughout shift. * Keya Goodrich RN - 10/30/2022 3:53 PM CDT Patient alert awake to verbal and tactile stimulation, appears fatigued up in chair this am with O T following am care. Continues to voice complaint of left shoulder and, left groin and buttock pain.Rectal orifice reddened hemorrhoidal cream applied as ordered. Encouraging po intake at meal times IV fluids infusing without difficulty. Call light in reach * Ryanne Champagne RN - 10/30/2022 4:51 AM CDT Pt continues on continuous NS therapy. Pt checked at 2200 bladder scanned at 200mL pt voided and checked post residual for a total of 105mL. Pt voiding incontinent per jade. Charge nurse aware. B/P documented throughout shift at 2130 B/P 100/61, 95% O2, 2330 106/65 B/P, O2 95% and at 0400 109/65, O2 92% . Pt Alert and engaging in conversation, lying in bed with HOB elevated at 30 degree angle, repositioned, medication comply, non-labored breathing. Call light and personal items within reach. Care continues. * Keya Goodrich RN - 10/29/2022 6:[address] Rucker notified of nursing having no urinary out for patient at this time, nurse tech's checking patient every two hour. Patient has remained dry, tech's states patient said therapy toileted him but nothing charted. Nurse informed per Dr. Rucker to recheck bladder scan at 2200. No orders received to straight cath patient. * Keya Goodrich RN - 10/29/2022 8:30 AM CDT Nurse to room attempted to place peripheral IV times two unsuccessful charge nurse notified Dr. Perry midline ordered pending insertion. * Keya Goodrich RN - 10/29/2022 7:44 AM CDT Nurse called to patient room this am by tech vital signs taken on machine 67/42. Patient assessed alert oriented x 4 manual blood pressure taken 78/40, 80/46, encouraged to drink fluids. Call placed to Dr. Perry message left pending response. Dr. Perry returned call orders received nurse willcontinue to monitor patient. Call light in reach * Jessica Mccann RN - 10/29/2022 5:01 AM CDT Pt is new admitted,is A&O x4, room air, denied pain and discomfort, last BM 10/28, stable VS, diminished urine production therefore is on order of Q6h bladder scan strait cath if >500ml, pain under control with PRN Oxcycodone and tylenol, Admition processing completed as well as skin assessment (with Arnav Washington),bed alarm is on, bed in low position, call light within reach. Pt is resting at this moment with no apparent distress. documented in this encounter Miscellaneous Notes * Plan of Care - Hardeep Darby RN - 11/19/2022 10:03 PM CDT Problem: Knowledge Deficit Goal: Patient and/or family demonstrate readiness to learn Outcome: Progressing Goal: Patient and/or family verbalizes understanding of education, and/or performs desired skill Outcome: Progressing Problem: Pain Goal: Patient's Pain/Discomfort is Manageable Outcome: Progressing Problem: Potential for Compromised Skin Integrity Goal: Skin integrity is maintained or improved Outcome: Progressing Goal: Nutritional status is improving Outcome: Progressing * PT Discharge Summary - Parul Eduardo, PT - 11/19/2022 3:05 PM CDT Physical Therapy Discharge Summary Patient Name: Esperanza Chaparro Patient Birthdate: 1955 PT CURRENT FUNCTIONAL STATUS: PT Current Functional Status: PT Current Functional Status: Mr. Chaparro'javier functional status as follows: POSITIONING: requires tilt in space w/c for trunk, head support, positioning. Half lap tray on leftwith gel heel protector to assist with left UE positioning. SITTING BALANCE: static sitting at edge of mat: max/total assist initially to control push left, retropulsion. With support and cues, can hold at times with mod assist for a few seconds but unable tomaintain prolonged time BED MOBILITY: Sit to/from supine with total assist of two for lift assist at trunk and LE's. Pt with painful leftgroin and back and resists movement at times. Increased education for pt to assist with right side vs pushing. Rolling to left with use of grab bar: min/mod assist to complete motion. To left with max/total assist for left side assist. Use of draw sheet for support due to left shoulder and groin pain with movement. TRANSFERS Sit to/from stand from edge of sweetie-mat with uses of grab bar on right, sheet support under hips. Total assist of 3 to obtain full upright stance. Max left knee block, pt maintains right knee in flexed position. Pushes left with max/total assist to obtain midline positioning. Stand pivot : not safe to attempt. Use of cee w/c to/from bed Trialed use of transfer board w/c to level mat: draw sheet assist, max/total of 3 for left leg block, trunk control due to pushes left and posterior. Car transfer: not safe to attempt GAIT Unsafe to attempt ambulation 10, 50',150'. Static stance from edge of mat as noted above: stood grossly 60 seconds with max/total assist of 3. Ambulates 10' on compliant surfaces : not safe to attempt Unsafe to retrieve object from floor STAIRS Ascends/descends curb : not safe to attempt Acscends/descends 4, 12 steps unsafe to attempt at this time WHEELCHAIR MOBILITY Pt requires tilt in space w/c for upright positioning support, trunk control, head support. Left half lap tray and use of gel heel protector to assist with maintaining positioning. Use of heel protectors at bilateral knee to control pressure on fibular heads. Dependent for up to 150' OUTCOME MEASURES: AGITATED BEHAVIOR SCALE 17 POSTURAL ASSESSMENT OF STROKE : Mr. Chaparro will discharge 11/20/22 to SNF. Factors in Goal Achievement: Facilitating Factors: None Barriers: ROM limitations, Balance deficits, Diminished endurance, Pain, Strength limitations, Motor control deficits, Decreased safety awareness, Decreased patient understanding and Cognitive deficits Date Last Assessed: 11/19/2022 Patient needs assistance with the following activities: Balance, Negotiating stairs, Sitting balance, Walking and/or mobility, Negotiating ramps or curbs, Positioning, Rolling, Use of ambulatory device and Wheelchair management Weight Bearing Status: Full - No restrictions throughout CARE Scores Mg: 6: Independent. Walnut provides no assistance with tasks. A device may or may not have been used. 5: Set-up or clean-up assistance. Walnut sets up or cleans up, but does not assist with tasks. Walnut may have assisted prior to or following the activity. 4: Supervision or touching assistance. Walnut provides verbal cues or touching/steadying or contactguard assistance. Assistance may be provided throughout the activity or intermittently. 3: Partial/moderate assistance. Walnut does less than half the effort. Walnut lifts, holds, or supports trunk or limbs, but provides less than half the effort. 2: Substantial/maximal assistance. Walnut does more than half the effort. Walnut lifts or holds trunk or limbs, and provides more than half the effort. 1: Dependent. Walnut does all of the effort, or the assistance of two or more helpers is required for the patient to complete the activity. -: Inconsistent or incomplete documentation Activity not attempted values: 7: Patient refused 9: Not applicable - Not attempted and the patient did not perform this activity prior to the current illness, exacerbation, or injury. 10: Not attempted due to environmental limitations (e.g., lack of equipment, weather constraints) 88: Not attempted due to medical condition or safety concerns Residential Goals: Goal Goal Status Discharge Status N/A or No Goal Listed Car Transfer - CARE Score: 88 (11/19/221510 : Parul Eduardo, PT) Walk 10 Feet LTG: Dependent (pt will ambulate 10ft with hemiaide and mod/max of two) Not Achieved unsafe Walk 10 Feet - CARE Score: 88 (11/19/221510 : Parul Eduardo, PT) N/A or No Goal Listed Walk 50 Feet with Two Turns - CARE Score: 88 (11/19/221510 : Parul Eduardo PT) N/A or No Goal Listed Walk 150 Feet - CARE Score: 88 (11/19/221510 : Parul Eduardo PT) N/A or No Goal Listed Walking 10 Feet on Uneven Surfaces - CARE Score: 88 (11/19/221510 : Parul Eduardo PT) N/A or No Goal Listed 1 Step (Curb) - CARE Score: 88 (11/19/221510 : Parul Eduardo PT) N/A or No Goal Listed 4 Steps - CARE Score: 88 (11/19/221510 : Parul Eduardo PT) N/A or No Goal Listed 12 Steps - CARE Score: 88 (11/19/221510 : Parul Eduardo PT) N/A or No Goal Listed Picking Up Object - CARE Score: 88 (11/19/221510 : Parul Eduardo PT) Wheel 50 Feet with Two Turns LTG: Partial/moderate assistance (pt propel w/c 60ft with right UE/LE and mod assist for guidance.) Not Achieved total assist Wheel 50 Feet with Two Turns - CARE Score: 1(11/19/221510 : Parul Eduardo PT) N/A or No Goal Listed Wheel 150 Feet - CARE Score: 1 (11/19/221510 : Parul Eduardo PT) Additional Goals: N/A PT Other Residential Goals Flowsheet Row Most Recent Value Other PT Residential Goals Other Goals - Offset Lithographic 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 Offset Lithographic 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 1, Offset Lithographic 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 2, Residential 3, Offset Lithographic 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 4 Filed on: 10/29/2022 1749 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 Lithographic 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 Goal 1 w/c to/from level surface with transfer board and mod assist Filed on: 11/19/2022 1512 Other Residential Goal 1 Status Not Achieved Filed on: 11/19/2022 1512 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 Lithographic 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 Goal 2 sit to stand to hemiaide and mod assist of two Filed on: 11/19/2022 1512 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 Lithographic 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 Goal 2 Status Not Achieved Filed on: 11/19/2022 1512 Other Residential Goal 3 tolerate upright position in regular w/c vs tilt in space w/c when out of bed Filed on: 11/19/20221511 Other Residential Goal 3 Status Not Achieved Filed on: 11/19/20221511 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 Lithographic 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 Goal 4 sit to/from supine with mod assist. Filed on: 11/19/20221511 Other Residential Goal 4 Status Not Achieved Filed on: 11/19/20221511 Discharge Instructions given to patient: PT Discharge Instructions Current level of help needed at this time: Transfers: You will need a mechanical lift to complete a transfer. Walking: You are not able to walk. Wheelchair Use: You need someone to push your wheelchair all the time. Stair Climbing: You will need to use a ramp. PARUL EDUARDO, PT 11/19/2022 * PT Treatment Note - Parul Eduardo, PT - 11/19/2022 1:49 PM CDT PT Treatment Patient Name: Esperanza Chaparro Patient Birthdate: 1955 Patient Subjective Report - I need to pee and poop. I need to go bad to bed. Pain Assessment Pain Context: Therapy Assessment Prior to Treatment (11/19/221354) Pain Assessment: NRS 0-10 (11/19/221354) Pain Score: 5 (11/19/221354) Pain Severity - NRS (Calculated): Moderate (11/19/221354) Pain Location: Hip (11/19/221354) Pain Orientation: Left (11/19/221354) Pain Radiating Towards: distal along L LE (11/19/221354) Pain Descriptors: Aching, Stabbing (aching at rest. stabbing with ROM with mobility) (11/19/221354) Pain Onset: Ongoing (11/19/221354) Aggravating Factors: Weakness, Positioning, Activity Duration (11/19/221354) Alleviating Factors: positioning, rest (11/19/221354) OUTCOME MEASURES: ABS=17 BED MOBILITY: -Rolling to L, min A with use of bedrail -rolling to R, total assist of 2 using draw sheet. Support of L UE required due to L shoulder pain.Pt c/o of severe pain in L hip and resistant to completion of roll -sit-supine depend of 2, pt with c/o pain in L shoulder and hip with transitions TRANSFERS: -bed<>w/c depend x 2 with cee. Requires significant time with max vc's to warning pt with each step and especially when movement to L UE/LE is required for sling set-up and with actual transition -sit-stand unsafe due to weakness, impaired balance, pain in L UE/LE, pushes L -car transfer unsafe to assess GAIT: Pt unable to perform 10', 50' 150' or 10' over compliant surface due to unsafe to stand STAIRS: Unsafe to perform 1, 4 or 12 steps RETRIEVE ITEM OFF OF FLOOR FROM STANDING: Unsafe to perform WHEELCHAIR: Dependent as pt requires TIS w/c for safety with poor sitting balance and need for frequent repositioning to assist with pain and pressure relief OTHER: Pt incontinent of bowels during PT session. Multiple reps of rolling performed to complete hygiene and clothing. Significant pain in L shoulder/hip with mobility as stated above requiring frequent rest breaks after each transition. PT Treatment Outcomes:: Cues needed for safety, Pain limiting patient progress and Patient tolerated session fair PT Summary:: Pt to discharge to SNF 11/20/22 PT Summary Plan of Care: Continue with current plan of care Pain Evaluation and Follow-up Response to Therapy Interventions: Decreased complaints of pain (11/19/22 1439) Pain Reassessment: 0, No pain (resting in supine with pillow under L UE and L lower leg/knee for optimal positioning) (11/19/22 1439) Therapy Minutes Individual Concurrent Co-Treat Individual (PT) Time In : 1349 Time Out: 1439 Total Time with Patient (Min): 50 min PARUL EDUARDO, PT 11/19/2022 CHART CORRECTION: Type of Chart Edit: Correction Reason for Correction: Other (comment) (added subjective statement. removed incorrect PASS score) Name: Parul Eduardo PT Date: 11/19/2022 Time: 15:15 CDT * OT Discharge Summary - Luke Robertson, OT - 11/19/2022 12:44 PM CDT Occupational Therapy Discharge Summary Patient Name: Esperanza Chaparro Patient Birthdate: 1955 OT Current Functional Status: Mr Chaparro's current functional status is as follows: EATING: supervision, cues for scanning to the left; occasional spilling especially on left side of mouth ORAL HYGIENE: supervision TOILETING: dependent, assist for all aspects BATHING: max assist; pt is able to assist with washing chest and face; assist needed for all other aspects UB DRESSING: max assist; pt assists with donning shirt over his head LB DRESSING: dependent, bed level; assist for all aspects PUTTING ON/TAKING OFF FOOTWEAR: dependent ROLL LEFT AND RIGHT: dependent for rolling to the right; mod/max assist for rolling to the left SIT TO LYING: dependent LYING TO SITTING: dependent SIT TO STAND: dependent BED TO CHAIR TRANSFER: dependent, cee lift, assist of 2 person TOILET TRANSFER: NT b/c of safety concerns with balance Mr Chaparro is being discharged to SNF. Continued intensive OT recommended to maximize functional independence and safety. He presents with flaccid L UE--no AROM noted. He frequently reports pain in L UEduring all movements during ADLs and transfers. Mr Chaparro presents with left inattention. He needs total assist for postioning in tilt in space wheelchair and is dependent for unsupported sitting balance. Facilitating Factors in Goal Achievement: Patient compliance, Patient motivation and Support of family or caregiver Barriers to Goal Achievement: Pain, Strength limitations, ROM limitations, Balance deficits, Motor control deficits, Cognitive deficits and Decreased safety awareness Patient needs assistance with the following activities: Activities of daily living, Going out in the community, Use of bathroom equipment, Positioning, Sitting balance and Vision Weight Bearing Status: Full - No restrictions throughout CARE Scores Mg: 6: Independent. Walnut provides no assistance with tasks. A device may or may not have been used. 5: Set-up or clean-up assistance. Walnut sets up or cleans up, but does not assist with tasks. Walnut may have assisted prior to or following the activity. 4: Supervision or touching assistance. Walnut provides verbal cues or touching/steadying or contactguard assistance. Assistance may be provided throughout the activity or intermittently. 3: Partial/moderate assistance. Walnut does less than half the effort. Walnut lifts, holds, or supports trunk or limbs, but provides less than half the effort. 2: Substantial/maximal assistance. Walnut does more than half the effort. Walnut lifts or holds trunk or limbs, and provides more than half the effort. 1: Dependent. Walnut does all of the effort, or the assistance of two or more helpers is required for the patient to complete the activity. -: Inconsistent or incomplete documentation Activity not attempted values: 7: Patient refused 9: Not applicable - Not attempted and the patient did not perform this activity prior to the current illness, exacerbation, or injury. 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: Goal Goal Status Discharge Status N/A or No Goal Listed Eating - CARE Score: 4 (11/19/227 : Luke Robertson OT) N/A or No Goal Listed Oral Hygiene - CARE Score: 4 (11/19/227 : Luke Robertson OT) Toileting Hygiene LTG: Partial/moderate assistance Not Achieved dependent Toileting Hygiene - CARE Score: 1 (11/19/227 : Luke Robertson OT) Shower/Bathe Self LTG: Partial/moderate assistance Not Achieved max assist Shower/Bathe Self - CAREScore: 2 (11/19/227 : Luek Robertson OT) Upper Body Dressing LTG: Partial/moderate assistance Not Achieved max assist Upper Body Dressing - CARE Score: 2 (11/19/227 : Luke Robertson OT) Lower Body Dressing LTG: Partial/moderate assistance Not Achieved: total assist Lower Body Dressing- CARE Score: 1 (11/19/227 : Luke Robertson OT) Putting On/Taking Off Footwear LTG: Partial/moderate assistance Not Achieved dependent Putting On/Taking Off Footwear - CARE Score: 1 (11/19/227 : Luke Robertson OT) N/A or No Goal Listed Roll Left and Right - CARE Score: 1 (11/19/227 : Luke Robertson OT) N/A or No Goal Listed Sit to Lying - CARE Score: 1 (11/19/22 1017 : Luke Robertson OT) N/A or No Goal Listed Lying to Sitting on Side of Bed - CARE Score: 1 (11/19/22 1017 : Luke Robertson OT) N/A or No Goal Listed Sit to Stand - CARE Score: 1 (11/19/22 1017 : Luke Robertson OT) Chair/Lkh-rd-[id number] Transfer LTG: Partial/moderate assistance Not Achieved dependent Chair/Bxn-dl-Uxvie Transfer - CARE Score: 1 (11/19/22 1017 : Luke Robertson OT) Toilet Transfer LTG: Partial/moderate assistance Not Achieved NT b/c of safety concerns with balance Toilet Transfer - CARE Score: 88 (11/19/22 1017 : Luke Robertson OT) Additional Goals: N/A Discharge Instructions given to patient: OT Discharge Instructions Current functional status and/or level of assist required for Activities of Daily Living upon discharge: Oral Care: you can do this with supervision and assistance to locate items on your left. Dressing: You need assistance for dressing. You need to put pants on/off while in bed for safety. Bathing: No showers yet because of balance. You need assistance for sponge bathing while in bed. Toileting: You need assistance for all aspects of toileting. Precautions: Vision: Remember to look to your left when performing any activities. LUKE ROBERTSON OT 11/19/2022 * OIL GAS AND PIPE TESTER Discharge Summary - [facility] - 11/19/2022 12:21 PM CDT Speech Language Pathologist Discharge Summary Patient Name: Esperanza Chaparro Patient Birthdate: 1955 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 Chaparro is a 67 year old male referred to speech therapy for evaluation and treatment following recent hospitalization with a diagnosis of CVA. Patient presented to the hospital initially on 10/12/22 due to a peritonsillar abscess, reporting dysphagia symptoms with liquids and solids. While there, he developed left sided weakness with confirmation of CVA. He was living with his sister prior to admission and was independent with ADLs and IADLs and driving. 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 Current functional status at discharge is as follows: PROGRESS 11/02/22: Evaluation was completed on 10/29/22. All goals remain appropriate to continue at this time due to limited number of sessions thus far. Patient is distracted by pain and discomfort when up in wheelchair during therapy sessions. He requires frequent encouragement for task persistence. Patient requires assistance with tray set-up and at least some degree of supervision/assistance with feeding due to left visual impairment and left side weakness. PROGRESS 11/06/22: Patient is making good progress towards his speech therapy goals. He has participated in discussion this week regarding stroke risk factors and prevention. He has shown improved ability to solve basic problem-solving situations. He is using compensatory strategies with minimal cueing to locate information on the left side for visual matching tasks. Patient is managing current diet well and would benefit from further assessment to determine safety of upgraded solid textures at this time. PROGRESS 11/12/22: Mr. Chaparro is seen for 45 minutes of speech therapy daily with focus on dysphagia management, functional communication and cognitive retraining. He is making progress in all goaled areas. Trials of regular consistency food items have been completed this week. Patient is recalling safe swallow strategies and using them with minimal-moderate assistance depending on comfort and pain level. Patient's attention during meals and structured tasks is improving, however, when structure isnot imposed it is very difficult for him to focus due to both internal and external events. Improvements noted in recall of daily events and therapy information. Problem solving and reasoning continue to require minimal assistance. He will need 24 hour assistance with ADLs and IADLS at discharge. PROGRESS 11/16/22: Mr. Chaparro continues to make progress in therapy. Improvement noted in his ability to maintain wakefulness for participation in therapy tasks. He continues to be distracted by frequent pain and discomfort while in the wheelchair. Patient has participated in continued trials of regular texture food items. He continues to present with pocketing of food on the left and lingual residue; however, less oral spillage is noted. Current diet of Soft and Bite Sized remains the safest and least restrictive diet at this time. Some improvement noted in functional problem-solving/reasoning skills for basic daily tasks. Patient is able to remember familiar people and daily therapy events at least 75% of the time. SWALLOWING: Current diet: SOFT & BITE SIZED with THIN LIQUIDS (IDDSI 6/0) Oral pocketing and lingual residue noted. Oral care is necessary following each meal. COMMUNICATION: COMPREHENSION- SUPERVISION. Patient is able to comprehend information regarding basic needs over 90% of the time. Increased difficulty noted with comprehension of complex or abstract information. EXPRESSION- SUPERVISION. Patient is able to express information regarding basic needs over 90% of the time. Increased difficulty noted with comprehension of complex or abstract information. Patient presents with mild dysarthria but mostly intelligible speech. COGNITION: PROBLEM-SOLVING- MINIMAL ASSISTANCE. Patient is able to solve routine problems at least 75% of the time. Improvement noted in ability to provide appropriate responses for basic verbal problem-solving situations. Increased assistance required for multi-step sequencing and mathematical reasoning tasks. Patient is highly distracted by internal and external factors. MEMORY: MINIMAL ASSISTANCE. Patient is able to recognize and remember people, routines, and requests at least 75% of the time. SOCIAL INTERACTION: SUPERVISION. Improvement noted in wakefulness with increased participation in therapy tasks. DISCHARGE PLAN/RECOMMENDATION: Mr. Chaparro will be discharged to SNF on 11/20/22. He will benefit from continued speech therapy services to further address functional communication and cognitive skills for increased safety and independence in his discharge setting; also to address safety of diet upgrade to regular texture. The Patient: [ ]is able to state 2 risk factors without VCs prior to discharge [X ]requires cues to recall 2 stroke risk factors [ ] Is unable to state stroke risk factors due to communication or cognitive deficits Facilitating Factors in Goal Achievement: Patient compliance, Improvement in cognitive skills, Progress to date, Increased visual acuity/attention and Support of other(s) Barriers to Goal Achievement: Pain, Other (comment) and Visual inattention/neglect (cognition) Date Last Assessed: 11/19/2022 Offset Lithographic 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 Goals: Goal Goal Status Discharge Status N/A or No Goal Listed N/A or No Goal Listed N/A or No Goal Listed N/A or No Goal Listed N/A or No Goal Listed N/A or No Goal Listed Level of Assistance to Meet Problem Solving: Min assist (10-24%) Problem Solving Details: Improve functional problem-solving skills to minimal assistance to solve routine problems at least 75% of the time. Problem Solving Expected Achievement Date: 11/25/22 Achieved Minimal assistance Level of Assistance to Meet Memory: Min assist (10-24%) Memory Details: Improve functional memory skills to minimal assistance to recognize and remember people, routines, and requests at least 75% of the time. Memory Expected Achievement Date: 11/25/22 Achieved Minimal assistance N/A or No Goal Listed N/A or No Goal Listed N/A or No Goal Listed Swallowing Details: Safely manage regular texture solids and thin liquids with no clinical signs ofdysphagia. Swallowing Expected Achievement Date: 11/25/22 Not Achieved Soft and Bite Sized with thin liquids N/A or No Goal Listed Additional Goals: N/A Discharge Instructions given to patient: OIL GAS AND PIPE TESTER Discharge Instructions Swallowing Recommendations: Current Diet: IDDSI 6- Soft & Bite-Sized (SB6): Soft, tender and moist but with no thin liquid leaking or dripping from the food. Chewing required. Pieces no bigger than the size of a thumbnail for adults (about the width of a standard dinner fork). Food completely squashes when pressed firmly with a fork and does not regain shape when fork is removed. and IDDSI 0- Thin Liquids - all liquids- no restrictions (Tn0): Flows like water. Syringe Flow Test- Less than 1 ml remaining in a 10 ml syringe after 10 sec of flow.. Swallow Safety / Strategies: Check that your mouth is clear after eating, Eat and drink slowly. Be sure to swallow each bite or drink before taking your next bite of food or drink, Sit all the way upwhen eating and drinking, Take small bites of food, and Take small sips of liquid. Level of Supervision at Meals: You need someone to remind you to follow your safe swallowing strategies. Communication: Your primary mode of communication is verbal. Current status and/or level of assistance required for Communication and Thinking skills on discharge: Understanding: You will need someone to help you understand the lengthy or complex spoken information, instructions and conversation. Reading: You will need someone to help you understand detailed written information and instructionssuch as a calendar, daily schedule, menu, prescription label and You will need someone to help you understand lengthy or complex written information such as books, newspapers, magazines. Communication: You will need someone to help you communicate lengthy and complex needs, thoughts and information. Completing Tasks: You will need someone to help you complete complex tasks such as meal preparation, following daily routines, managing finances. Memory: You will need someone to help you remember information but are able to use written reminders with assistance. Noise / Stimulation: You do best with a low stimulation environment (lights off, TV off, closed door, speaking softly, one person in room at a time). Safety Risks/ Precautions: Aspiration: Follow the diet recommended by your speech therapist, Follow swallow strategies recommended by your speech therapist, and Perform daily mouth care to prevent bacteria in the mouth from entering the lungs. LEE ANN RAMIREZ ST 11/19/2022 * OIL GAS AND PIPE TESTER Treatment Note - [facility] - 11/19/2022 11:39 AM CDT Speech Language Pathologist Treatment Patient Name: Esperanza Chaparro Patient Birthdate: 1955 Patient Subjective Report - I told you I wanted to see this movie. I've seen it at least 5 times Pain Assessment Pain Context: Therapy Assessment During Treatment (11/19/221116) Pain Assessment: NRS 0-10 (11/19/221116) Pain Score: 5 (11/19/221116) Pain Severity - NRS (Calculated): Moderate (11/19/221116) Pain Location: Back (11/19/221116) Pain Orientation: Lower (11/19/221116) Pain Onset: Ongoing (11/19/221116) Pain Frequency: Constant/continuous (11/19/221116) Aggravating Factors: Weakness (11/19/221116) Alleviating Factors: positioning, medication (11/19/221116) Functional Impact: Self care/ADL's (11/19/221116) Pre-therapy pain intervention required: Nurse notified, Nursing medicated patient - see MAR (11/19/221116) Pain Interventions Education Provided: Patient (11/19/221116) Non-Pharmacologic Pain Interventions: Position/Reposition, Relaxation, Distractions (11/19/221116) Emotional/Spiritual Pain Interventions: Emotional Support (07/13/23 1117) Pain Consults Initiated or Completed: Rehab (11/19/22 1117) Cognitive Communication: Immediate memory, Short-term memory, Processing information of increased length or complexity, Semi-complex to complex attention, Task persistence, Self monitoring, Speed of processing, Planning and sequencing, Organization, Verbal problem solving and Visual strategies Dysphagia Treatment: Swallow strategy training, Oral care and Dysphagia diet training Recommended diet: IDDSI 6 - Soft & Bite-Sized / NDD3, Pills Whole in IDDSI 4 (Pureed / Extremely Thick) and IDDSI 0 - Thin Liquids / All Liquids Compensatory swallowing techniques: Small bites, Small sips, Eat slowly-control rate, Seated upright with all PO intake, Monitor oral spillage, Oral care post PO intake and Other (comment) (Avoid large bore straw) Level of supervision at meals recommended: 1 to 1 assistance due to cognitive or motor deficits Patient/Caregiver Training: Completed with patient, Therapy goals and treatment plan, Oral hygiene,Cognitive strategies, Cognitive Communication Disorder, Dysphagia, Swallow strategies and Current diet ST Narrative:: Mr. Chaparro was seen in his room for speech therapy this morning. He was awake, alert ,seated upright in his wheelchair. States his nurse had just come in and readjusted him and his pillows which made him more comfortable. He completed the followin. Problem solving/reasoning: Patient asked to begin session by identifying the distractions present. He identified TV and people in the campa. OIL GAS AND PIPE TESTER reminded him that in addition to the distractions heidentified he is also easily distracted by his own thoughts. OIL GAS AND PIPE TESTER began session by decreasing distractions in room including muting TV and closing door. Patient complaining that the speaker for the TV(his call light) was never close enough for him to hear the TV. OIL G[employer] AND PIPE TESTER pointed out that the remote wason the bed next to him where he could reach it and bring it closer to hear which he did and unmutedthe TV. OIL GAS AND PIPE TESTER asked him to either mute the TV or turn it off to decrease distractions and improve atte ntion. In the course of 10 minutes patient unmuted or turned the tv back on 5x with direct reminderfrom OIL GAS AND PIPE TESTER for the reason it had been turned off or down originally. Patient states he can attend to task with the movie playing in the background on low volume . OIL GAS AND PIPE TESTER complied and the following task was attempted: 2. Utilized the find the problem module on the [employer] therapy application for the ipad to target attention, problem solving and executive functioning. Allowed the distraction of the TV to remainand gave patient directions to find the error in each of 25 pictures on the ipad. The program advanced on it's own taking away the need for him to initiate each item. In a 20 minute time frame patient was able to complete 4 items in succession on his own. OIL GAS AND PIPE TESTER provided feedback and education on the purpose of this task. Patient talking at the same time despite cues to stop, listen, speak . 3. Memory: did not recall his morning therapy. Confused as to where he was today and asked OIL GAS AND PIPE TESTER about when we worked together before at the other place . States he thought this was the long-term and forgot he was still in rehab. Provided orientation information and reviewed daily schedule as well as discharge plan to the SNF tomorrow 4. Intelligibility: reviewed strategies to improve intelligibility. Patient did not recall every working on improving his speech or hearing about strategies to improve. Throughout education patient talked at the same time as the therapist using a low volume with decreased articulatory precision. Education provided on turning the tv down or off to improve his listener's ability to understand him. He states it's easier for him to understand/hear his communication partner as well, yet continued toturn the tv back on throughout the session forgetting why it was turned off just minutes prior. 3. Pt remained seated upright in chair at end of session. Patient requesting to get back into bed. Encouraged to remain seated upright for safety with his noon meal. Chair alarm in place and activated. ST Session Outcomes: Patient/family education progressing, Progressing toward STGs, Tolerated treatment well and Minimal cues during session ST Summary Plan of Care: Continue with current plan of care Pain Evaluation and Follow-up Response to Therapy Interventions: Other (comment) (11/19/221199) Pain Reassessment: 5 (11/19/221199) Nursing notified of patient's pain assessment: Primary Nurse (11/19/221199) Therapy Minutes Individual Concurrent Co-Treat Time In : 1115 Time Out: 1202 Total Time with Patient (Min): 47 min Missed Minutes : [address] 11/19/2022 * Plan of Care - Robert Joseph RN - 11/19/2022 11:08 AM CDT Problem: Infection Goal: Absence of infection and prevention of transmission during hospitalization Outcome: Progressing Problem: Delirium Goal: Prevent and Manage Delirium Outcome: Progressing Problem: Fall Safety: [place] Precautions Goal: Free from fall injury Outcome: Progressing Problem: Fall Prevention: Neglect/Hemiparesis Bundle Goal: Patient will be free from Fall Injury Outcome: Progressing Problem: Pain Goal: Patient's Pain/Discomfort is Manageable Outcome: Progressing Problem: Potential for Compromised Skin Integrity Goal: Skin integrity is maintained or improved Outcome: Progressing Problem: Urinary Incontinence Goal: Perineal skin integrity is maintained or improved Outcome: Progressing * OT Treatment Note - Luke Robertson OT - 11/19/2022 9:45 AM CDT Occupational Therapy Treatment Patient Name: Esperanza Chaparro Patient Birthdate: 1955 Patient Subjective Report - The employees are mean to me. They hurt me when they turn me and move me to clean me up. I'm not mean to them or their children. Pain Assessment Pain Context: Therapy Assessment Prior to Treatment (11/19/22953) Pain Assessment: NRS 0-10 (11/19/22953) Pain Score: 10 (11/19/22953) Pain Severity - NRS (Calculated): Severe (11/19/22953) Pain Location: Shoulder, Back (11/19/22953) Pain Orientation: Left (11/19/22953) Pain Interventions Education Provided: Patient (11/19/221102) Non-Pharmacologic Pain Interventions: Position/Reposition, Distractions, Exercise/Activity (11/19/221102) ADL Training: ADL Training Narrative: EATING: ORAL HYGIENE: supervision, cues for locating items on the left side TOILETING: dependent, bed level BATHING: max assist bed level; pt is able to assist with washing his face and chest (with cues for thoroughness). UB DRESSING: max assist; pt assisted by donning shirt over his head; assist needed for all other aspects of UB dressing LB DRESSING: dependent, bed level PUTTING ON/TAKING OFF FOOTWEAR: dependent, bed level ROLL LEFT AND RIGHT: dependent, two person assist when rolling to the left SIT TO LYING: LYING TO SITTING: SIT TO STAND: NT b/c of safety concerns BED TO CHAIR TRANSFER: two person assist with cee lift; pt is very sensitive to any touching and movements; complained of severe pain during movements especially on L UE and L hip; dependent for positioning in w/c; pt tends to push himself to left (poor awareness of body positioning). Pt was tilted back in w/c to assist with positioning and pressure relief. TOILET TRANSFER: NT b/c of safety concerns with balance OT Therapeutic Activity: Therapeutic Exercise: Pt participated in L UE gentle PROM and positioning. No AROM noted in L UE. Pt tolerated about 90 degrees shoulder flexion and abduction and near full horizontal abduction. He tolerated full elbow flexion and extension. He c/o pain especially with hand movements, but did tolerate near full finger flexion and extension and full wrist flexion and extension. Treatment, Outcomes and Plan: OT Narrative:: Mr Chaparro tolerated session well with cues for encouragement. He is very sensitive to movements and reports pain in left side during movement during ADLs and transfers. He continues to present with flaccid L UE--no AROM noted. OT Treatment Outcomes:: Safety device reapplied, Patient is progressing toward STG(s), Goals met for this session and Patient tolerated treatment well OT Summary Plan of Care: Continue with current plan of care Pain Evaluation and Follow-up Response to Therapy Interventions: Improved activity tolerance, Improved positioning (11/19/22 110) Pain Reassessment: 6 (11/19/22 110) Nursing notified of patient's pain assessment: Primary Nurse (11/19/22 110) Therapy Minutes Individual Concurrent Co-Treat Individual (OT) Time In : 0945 Time Out: 1115 Total Time with Patient (Min): 90 min LUKE ROBERTSON OT 11/19/2022 * Plan of Care - Hardeep Darby RN - 11/18/2022 9:30 PM CDT Problem: Knowledge Deficit Goal: Patient and/or family demonstrate readiness to learn Outcome: Progressing Goal: Patient and/or family verbalizes understanding of education, and/or performs desired skill Outcome: Progressing Problem: Pain Goal: Patient's Pain/Discomfort is Manageable Outcome: Progressing Problem: Potential for Compromised Skin Integrity Goal: Skin integrity is maintained or improved Outcome: Progressing Goal: Nutritional status is improving Outcome: Progressing Problem: Urinary Incontinence Goal: Perineal skin integrity is maintained or improved Outcome: Progressing * Treatment Plan - Sacha Ruby DO - 11/18/2022 2:02 PM CDT Nephrology Plan of Care Patient seen this afternoon for BRYCE and hyperkalemia. He is quite lethargic after receiving Flexeril. No edema, appears a bit dry on exam. Chart thoroughly reviewed. Agree with saline. Agree w/ holding losartan. Agree with bladder scan - was zero per RN, not retaining Hold ibuprofen Send UA, urine lytes including K, and UACR Check renal ultrasound Will send renin, margarita, and cortisol with AM labs. Full note to follow. Sacha Ruby DO Nephrology & Hypertension 24-Hr Exchange: [phone] * Plan of Care - Love Sellers RN - 11/18/2022 1:40 PM CDT Problem: Infection Goal: Absence of infection and prevention of transmission during hospitalization Outcome: Progressing * OIL GAS AND PIPE TESTER Treatment Note - [facility] - 11/18/2022 11:24 AM CDT Speech Language Pathologist Treatment Patient Name: Esperanza Chaparro Patient Birthdate: 1955 Patient Subjective Report - You've got to do something about my head. Pain Assessment Pain Context: Therapy Assessment Prior to Treatment (11/18/22 1124) Pain Assessment: NRS 0-10 (11/18/22 1124) Pain Score: 7 - Severe Pain (11/18/22 1124) Pain Severity - NRS (Calculated): Severe (11/18/221123) Pain Location: Buttocks (11/18/221123) Pain Descriptors: Aching (11/18/221123) Pain Onset: Ongoing (11/18/221123) Pain Frequency: Constant/continuous (11/18/221123) Aggravating Factors: Positioning (11/18/221123) Pre-therapy pain intervention required: Patient expressed pain is tolerable/able to proceed, Other (Comment) (Patient had suppository; expressed discomfort due to constipation.) (11/18/221123) Pain Interventions Education Provided: Patient (11/18/221210) Non-Pharmacologic Pain Interventions: Distractions, Position/Reposition (11/18/221210) Emotional/Spiritual Pain Interventions: Empathetic Discussion (11/18/221210) Cognitive Communication: Immediate memory, Short-term memory, Processing information of increased length or complexity, Semi-complex to complex attention, Task persistence, Self monitoring, Speed of processing, Verbal problem solving, Insight and Visual strategies Dysphagia Treatment: Swallow strategy training, Oral care and Dysphagia diet training Recommended diet: IDDSI 6 - Soft & Bite-Sized / NDD3, Pills Whole in IDDSI 4 (Pureed / Extremely Thick) and IDDSI 0 - Thin Liquids / All Liquids Compensatory swallowing techniques: Small bites, Small sips, Eat slowly-control rate, Seated upright with all PO intake, Monitor oral spillage, Oral care post PO intake and Other (comment) (Avoid large bore straw) Level of supervision at meals recommended: 1 to 1 assistance due to cognitive or motor deficits Patient/Caregiver Training: Completed with patient, Therapy goals and treatment plan, Oral hygiene,Cognitive strategies, Cognitive Communication Disorder, Dysphagia, Swallow strategies and Current diet ST Narrative:: 1. Patient was seen for therapy in his room, reclined in bed; alert and cooperative with therapy tasks. Patient had reportedly received a suppository and was experiencing discomfort due to constipation. He was restless throughout the session, frequently complaining of discomfort due to his position in the bed. 2. Patient was able to provide two logical causes for functional problem situations with 100% accuracy. 3. Patient was able to read sentences on the iPad and choose the correct word from a choice of fourto complete the sentence with 100% accuracy. 4. Patient produced sentences using speech strategies to improve articulation with minimal cueing. 5. Patient completed a task on the iPad to target divided attention and awareness of information onthe left side (Constant Therapy Find Alternating Words level 2). Patient required moderate assistance to complete this task. 6. Patient remained in his room with call light left within reach. Bed alarm was activated. ST Session Outcomes: Patient/family education progressing, Progressing toward STGs, Tolerated treatment well and Minimal cues during session ST Summary Plan of Care: Continue with current plan of care Pain Evaluation and Follow-up Response to Therapy Interventions: Other (comment) (No change) (11/18/22 121) Pain Reassessment: 8 (11/18/221210) Nursing notified of patient's pain assessment: Primary Nurse (11/18/221210) Therapy Minutes Individual Concurrent Co-Treat Time In : 1124 Time Out: 1211 Breaks/Pauses (Min): 0 mins Total Time with Patient (Min): 47 min Missed Minutes : [address] 11/18/2022 * PT Treatment Note - Irlanda Sher, PT - 11/18/2022 10:30 AM CDT PT Treatment Patient Name: Esperanza Chaparro Patient Birthdate: 1955 Patient Subjective Report - pt complaints of pain with any movement. Reports pain in buttocks s/p suppository placement. Pain Assessment Pain Context: Therapy Assessment Prior to Treatment (11/18/22 103) Pain Assessment: NRS 0-10 (11/18/22 103) Pain Score: 9 (11/18/221029) Pain Severity - NRS (Calculated): Severe (11/18/22 103) Pain Location: Arm, Buttocks, Groin, Hip (11/18/22 103) Pain Orientation: Left (11/18/221029) Pain Descriptors: Aching, Sore, Sharp (11/18/22 1030) Pain Onset: Ongoing (11/18/22 103) Pain Frequency: Constant/continuous (11/18/22 103) Aggravating Factors: Activity Duration (07/12/23 1030) Pre-therapy pain intervention required: Patient expressed pain is tolerable/able to proceed (11/18/22 1030) Pain Interventions Education Provided: Patient (11/18/221114) Non-Pharmacologic Pain Interventions: Exercise/Activity, Position/Reposition, Distractions (11/18/22 111) Emotional/Spiritual Pain Interventions: Empathetic Discussion, Emotional Support (11/18/221114) Therapeutic Activities and Neuromuscular Re-education: Pt in bed upon arrival. S/p suppository placement so bedside treatment. Gentle PROM to left leg in lower hip flexion range to control pain. Pt able to elicit push with left leg to command- Passive with trace hip movement for hip ab/adduction Lower leg supported for gentle knee flexion/extension PROM to left ankle into DF. Min clonus noted with quick stretch. Able to range just past neutral. With distractions of discussion, etc able to tolerate improved left leg movement. Assisted right leg exercises: ankle DF, hip/knee flexion/extension. Lower leg supported for right knee extension with min assist, focus on extend and hold. Pt reports gel heel protector on right leg hinders movement- provided education on need for heel protection and pt demonstrated ability to flexhip/knee to obtain right hooklying position, assist with rolling. Pt able to roll left with cues for right UE/LE positioning, use of bedrail on left: min/mod assist to complete motion. Varies with report of pain. Rolling to right with use of drawsheet support, gentle positioning of left leg in flexion with pillow support between knees- total assist to roll right due to report of pain. Increased education to control pushing with right side. Pt positioned with slight HOB elevated, bilateral Ue's supported on pillows and bilateral heels with gel heel protectors. PT Treatment Outcomes:: Patient tolerated session fair and Safety device reapplied PT Summary:: Mr. Chaparro tolerated the session fair. Increased education on benefit of bed mobility, ROM. Frequent redirection during task, exercises. He will continue to benefit from therapy to maximize functional gains and improve overall mobility tolerance. PT Summary Plan of Care: Continue with current plan of care Pain Evaluation and Follow-up Response to Therapy Interventions: Other (comment) (initially stated 02/16. discussed once positioned and at rest to rate pain: 3-4/10.) (11/18/22 111) Pain Reassessment: 4 (11/18/221114) Nursing notified of patient's pain assessment: Primary Nurse (11/18/221114) Therapy Minutes Individual Concurrent Co-Treat Individual (PT) Time In : 1030 Time Out: 1115 Total Time with Patient (Min): 45 min IRLANDA SHER, PT 11/18/2022 * OT Treatment Note - Ekaterina Forman, OT - 11/18/2022 9:00 AM CDT Occupational Therapy Treatment Patient Name: Esperanza Chaparro Patient Birthdate: 1955 Patient Subjective Report - Don't move my left side, no one move my left side, I don't care what you need to do!! Pain Assessment Pain Context: Therapy Assessment During Treatment (11/18/22905) Pain Assessment: NRS 0-10 (11/18/22905) Pain Score: 7 - Severe Pain (11/18/22905) Pain Severity - NRS (Calculated): Severe (11/18/22905) Pain Location: Arm, Buttocks, Leg (11/18/22905) Pain Orientation: Left, Posterior (11/18/22905) Pain Descriptors: Aching, Shooting, Throbbing (11/18/22905) Pain Onset: Ongoing (11/18/22905) Pain Frequency: Constant/continuous (11/18/22905) Aggravating Factors: Positioning, Activity Duration (11/18/22905) Pre-therapy pain intervention required: Patient expressed pain is tolerable/able to proceed, Nurse notified (with encouragement) (11/18/22905) Pain Interventions Education Provided: Patient (11/18/22905) Non-Pharmacologic Pain Interventions: Distractions, Exercise/Activity, Position/Reposition, Rest (11/18/22905) Emotional/Spiritual Pain Interventions: Emotional Support (11/18/22905) ADL Training: ADL Training Narrative: EATING: with ORAL HYGIENE: with TOILETING: with dependence, incontinent of urine and requires complete assistance for hygiene and clothing management. Performed at bed level. Frequent max cues for problem solving, attention to task, reasoning for tasks SHOWER/BATHING: with maximal assistance (less than 25%). Able to wash face, partial chest and partial upper abdomen with cues and encouragement. Mr. Chaparro requires assistance for completion of washing/drying chest and abdomen, bilateral UE, yisel area, buttocks, and LB. Mr. Chaparro requires maximal cuesto participate with bathing tasks. Performed at bed side. Frequent max cues for problem solving, attention to task, reasoning for tasks UPPER BODY DRESSING: with maximal assistance (less than 26%), assisted slightly with threading right UE through sleeve. Requires maximal cues to participate with UB dressing. Frequent max cues for problem solving, attention to task, reasoning for tasks LOWER BODY DRESSING: with dependence with all aspects of LB dressing. Performed at bedside. Max cues to participate with LB dressing. Frequent cues for problem solving, attention to task, reasoning for tasks FOOTWEAR: with dependence. Frequent max cues for problem solving, attention to task, reasoning for tasks Transfer Training: Transfer Narrative: ROLL LEFT/RIGHT: with moderate to maximal assistance for rolling left and dependence rolling right. Maximal cues and encouragement to participate with rolling to complete selfcaretasks. Frequent max cues for problem solving, attention to task, reasoning for tasks SIT TO LYING: with LYING TO SITTING: with SIT TO STAND: with BED TO CHAIR TRANSFER: not performed this date due to having suppository placed towards end of tx session TOILET TRANSFER: with OT Therapeutic Activity: Endurance: Frequent rest breaks due to frequent complaints of pain. Frequent max cues for problem solving, attention to task, reasoning for tasks. Cognition: Decreased insight into therapy needs and abilities. Frequent max cues for problem solving, attention to task, reasoning for tasks Other: Mr. Chaparro positioned midline in bed with left UE positioned elevated on pillow at end of tx session Treatment, Outcomes and Plan: OT Narrative:: Mr. Chaparro required frequent cues for participation and frequent cues for problem solving, attention to task, reasoning for tasks. Mr. Chaparro c/o pain frequently throughout tx session regarding left side pain. Mr. Chaparro would benefit from continued OT services to work on maximizing functional independence. OT Treatment Outcomes:: Safety device reapplied, Patient tolerated treatment poorly and Goals met for this session OT Summary Plan of Care: Continue with current plan of care Pain Evaluation and Follow-up Response to Therapy Interventions: Other (comment) (no difference noted) (11/18/22 1030) Pain Reassessment: 7 (11/18/22 1030) Nursing notified of patient's pain assessment: Primary Nurse (11/18/22 1030) Therapy Minutes Individual Concurrent Co-Treat Individual (OT) Time In : 0900 Time Out: 1030 Total Time with Patient (Min): 90 min EKATERINA FORMAN, JEZ 11/18/2022 * Plan of Care - Hardeep Darby RN - 11/17/2022 8:23 PM CDT Problem: Knowledge Deficit Goal: Patient and/or family demonstrate readiness to learn Outcome: Progressing Goal: Patient and/or family verbalizes understanding of education, and/or performs desired skill Outcome: Progressing Problem: Potential for Compromised Skin Integrity Goal: Skin integrity is maintained or improved Outcome: Progressing Goal: Nutritional status is improving Outcome: Progressing * Plan of Care - Love Sellers RN - 11/17/2022 3:11 PM CDT Problem: Infection Goal: Absence of infection and prevention of transmission during hospitalization Outcome: Progressing * Team Conference - TRESA Grier - 11/17/2022 11:39 AM CDT Team Conference Note Date: 11/17/2022 Time: 10:02 AM CDT Patient Name: Esperanza Chaparro Date of : 1955 Sex: Male Room/Bed: 319/319-2 Admit Date/Time: 10/28/2022 9:05 PM Patient Active Problem List Diagnosis Date Noted Dysphagia 10/29/2022 Cerebrovascular accident 10/28/2022 Chronic obstructive pulmonary disease 10/12/2022 Coronary arteriosclerosis 10/12/2022 Primary hypertension 12/11/2021 Team Members Present: Attendees: Carolina Garibay MD, Chasity Payne, YousufD, Mehdi Goldstein OT, [facility], Atif Noriega PT, Love Sellers, community organization director in Attendance: TRESA Grier Patient/Family Present: Patient Present: No Patient's Family/Caregiver Present: No Anticipated Discharge 11/20/2022 Discharge Plan: Discharge Destination Details : SNF/SNU Back-up Discharge Destination: SNF/SNU Potential Barriers to Return to Prior Living (Use comments to be specific): Caregiver limitations;Capacity for self care;Mobility challenge;Communication challenge;Architectural/environmental barrier(s);Home modification challenge;DME issue;Potential need for skills/non-skilled services;Potential need for 24 hour care;Financial resources;Insurance limitations;Psychosocial issues Clinical Barriers : Clinical needs exceed caregiver capacity;Instability Barriers: Total assist DME Recommendations: Facility to order Services Recommended at Discharge: [facility] Facility Copping Machine Operator Training: Completed F/U Appointments for Post Discharge: PCP Suicide Risk Assessment: No Concerns identified at this time Pain Management: Pain reported as adequately managed at this time. Medications: Current Facility-Administered Medications: acetaminophen (TYLENOL) tablet 650 mg, 650 mg, Oral, Q8H BERNARDO, Marion Perry MD, 650 mg at 11/17/22 0548 aspirin EC tablet 81 mg, 81 mg, Oral, Once a day, Marion Perry MD, 81 mg at 11/17/22 0849 bismuth subsalicylate (PEPTO BISMOL) 262 MG/15ML suspension 30 mL, 30 mL, Oral, Q6H PRN, Marion Perry MD, 30 mL at 11/05/22 2127 brimonidine (ALPHAGAN) 0.2 % ophthalmic solution 1 drop, 1 drop, Both Eyes, 3 times per day, Urban Perry MD, 1 drop at 11/17/22 0827 calcium carbonate (TUMS) chewable tablet 1,000 mg, 1,000 mg, Oral, Q2H PRN, Marion Perry MD, 1,000 mg at 11/01/22 1313 carvedilol (COREG) tablet 3.125 mg, 3.125 mg, Oral, 2 times per day, Raul Vo MD, 3.125 mg at11/17/22824 nicotine (NICODERM CQ) patch 21 mg, 21 mg, Transdermal, Once a day, 21 mg at 11/17/22827 AND Check Patch Placement, , Transdermal, 2 times per day, Marion Perry MD, Check Patch Placement at 11/17/22827 cholecalciferol (VITAMIN D3) capsule 50,000 Units, 50,000 Units, Oral, Weekly, Soto Meng MD, 50,000 Units at 11/13/22850 clopidogrel (PLAVIX) tablet 75 mg, 75 mg, Oral, Once a day, Marion Perry MD, 75 mg at 11/17/22824 cyclobenzaprine (FLEXERIL) tablet 5 mg, 5 mg, Oral, TID PRN, Raul Vo MD, 5 mg at 11/14/222113 dextrose (GLUTOSE) 40 % oral gel 15 g, 15 g, Oral, PRN, Marion Perry MD dextrose 50 % IV solution 12.5 g, 12.5 g, Intravenous, PRN OR dextrose 50 % IV solution 25 g, 25 g, Intravenous, PRN, Marion Perry MD Fluticasone-Salmeterol (AIRDUO RESPICLICK) 232-14 MCG/ACT inhaler 1 puff, 1 puff, Inhalation, RT BID, Marion Peryr MD, 1 puff at 11/17/22826 gabapentin (NEURONTIN) capsule 200 mg, 200 mg, Oral, 3 times per day, Marion Perry MD, 200 mgat 11/17/22824 glipiZIDE (GLUCOTROL) tablet 5 mg, 5 mg, Oral, Once a day, Soto Meng MD, 5 mg at 11/17/22825 glucagon injection reconstituted solution 1 mg, 1 mg, Intramuscular, PRN, Marion Perry MD hemorrhoidal ointment, , Apply externally, TID PRN, Marion Perry MD, Given at 11/13/222117 heparin (porcine) injection 5,000 Units, 5,000 Units, Subcutaneous, Q8H BERNARDO, Marion Perry MD,5,000 Units at 11/17/22 0549 ibuprofen (MOTRIN) tablet 200 mg, 200 mg, Oral, Q6H PRN, Carolina Garibay MD ipratropium-albuterol (DUO-NEB) 0.5-2.5 mg/3 mL nebulizer solution 3 mL, 3 mL, Inhalation, Q 4 hours PRN, Marion Perry MD, 3 mL at 11/02/22 2344 ketoconazole (NIZORAL) 2 % cream, , Topical, Once a day, Shorty Menard DPM, Given at 11/17/22 08 lidocaine (LIDOCARE) 4 % patch 3 patch, 3 patch, Transdermal, Once a day, Carolina Garibay MD, 3 patch at 11/17/22 0829 losartan (COZAAR) tablet 25 mg, 25 mg, Oral, Once a day, Valencia Johnson MD, 25 mg at 11/17/22 08 melatonin tablet 9 mg, 9 mg, Oral, Nightly, Marion Perry MD, 9 mg at 11/16/22 220 midodrine (PROAMATINE) tablet 5 mg, 5 mg, Oral, Q8H PRN, Raul Vo MD muscle rub (ICY HOT) 10-15 % cream, , Topical, 2 times per day, Carolina Garibay MD, Given at 11/17/22826 oxyCODONE (ROXICODONE) immediate release tablet 5 mg, 5 mg, Oral, Q4H PRN, Carolina Garibay MD, 5 mgat 11/17/22 0945 polyethylene glycol (MIRALAX) packet 17 g, 17 g, Oral, BID PRN, Carolina Garibay MD, 17 g at 11/04/22 215 rosuvastatin (CRESTOR) tablet 40 mg, 40 mg, Oral, Once a day, Marion Perry MD, 40 mg at 11/17/22 08 simethicone (MYLICON) chewable tablet 80 mg, 80 mg, Oral, 4x Daily PRN, Marion Perry MD, 80 mg at 10/31/22 1818 tamsulosin (FLOMAX) 24 hr capsule 0.4 mg, 0.4 mg, Oral, After Breakfast, Marion Perry MD, 0.4mg at 11/17/22825 triamcinolone acetonide (KENALOG-40) injection 40 mg, 40 mg, Intra-articular, Once, Carolina Garibay MD Umeclidinium [place] (INCRUSE ELLIPTA) 62.5 MCG/ACT inhaler 62.5 mcg, 1 puff, Inhalation, RT Daily,Marion Perry MD, 62.5 mcg at 11/17/22825 Pharmacy: Latest Pharmacy IDT Documentation None Medications: reviewed Anti-infective Durations: ketoconazole shampoo Medication therapy for pain: reviewed Scheduled non-opoid(s): acetaminophen;gabapentin;lidocaine patch;steroid for pain management As needed non-opioid(s): ibuprofen As needed opioid(s): oxycodone IR Average MEDD: 0-49.99 Pain medication regimen plan: no change recommended Pain Management: 4 doses PRN oxycodone in past 72hr, lidocaine patch, no PRN ibuprofen, routine tylenol and gabapentin, flexeril Sedation Impact: oxycodone, flexeril, gabapentin Glycemic Control: BG 143 on glipizide 5mg Medication Schedule Impact- Side Effects/ Behavior: nesina, coreg, flexeril, gabapentin, glipizide,losartan, statin, flomax Special Discharge Medications: glipizide, oxycodone Special Clinical Monitoring Protocols: dvt px - heparin Nursing Team Conference: Bladder Continent: Incontinent Bladder Devices: Adult brief Bladder Interventions: Post void residual monitoring Bladder: Describe level of assistance required and any barriers encountered in management: Incontinent, total assistance Bowel Continent: Incontinent Bowel Devices: Adult brief Bowel Interventions: Other (comment) Bowel: Describe level of assistance required and any barriers encountered in management: Assist with turning Pain: Patient denies pain Pain - Functional Impact: Transfers;Turning Aggravating Factors Impacting Pain: Weakness Alleviating Factors Impacting Pain: Rest Pain Education Provided: Patient Non-Pharmacologic Pain Interventions: Relaxation;Rest Emotional/Spiritual Pain Interventions: Emotional Support;Empathetic Discussion Pain Pharmacologic Treatments: Medicated - see MAR Opiate Use Anticipated After Discharge: Possible Nutrition Intake: Oral Nutrition Level of Assistance: Moderate assistance Respiratory O2 Delivery System: None Respiratory Interventions: None Skin Intact: None Skin Interventions: Weight shift/Turned respositioned every 2 hours;Other (Comment) (JOCY MATTRESS) Wound Rx: None Safety Status: Follows instructions Safety Interventions: Education;Performed rounding;Supervised activity Cognitive Orientation: Person;Place;Time;Date Quality of Sleep: Restful Approximate Hours Slept: 8 Educational Topics: safety awareness Patient-Family barriers to learning: None Is patient on dialysis?: No PT Weekly Progress Note PT Weekly Progress Note by Irlanda Sher PT at 11/16/2022 11:59 AM Author: Irlanda Sher PT Service: Therapy Author Type: Electric Repair Supervisor Filed: 11/16/2022 12:02 PM Date of Service: 11/16/2022 Continuous Improvement Consultant: Irlanda Sher PT (Electric Repair Supervisor) PT Weekly Progress Note Patient Name: Esperanza Chaparro Patient Birthdate: 1955 PT CURRENT FUNCTIONAL STATUS: PT Current Functional Status: PT Current Functional Status: Mr. Chaparro'javier functional status as follows: POSITIONING: requires tilt in space w/c for trunk, head support, positioning. Half lap tray on leftwith gel heel protector to assist with left UE positioning. SITTING BALANCE: static sitting at edge of mat: max/total assist initially to control push left, retropulsion. With support and cues, can hold at times with mod assist for a few seconds but unable tomaintain prolonged time BED MOBILITY: Sit to/from supine with total assist of two for lift assist at trunk and LE's. Pt with painful leftgroin and back and resists movement at times. Increased education for pt to assist with right side vs pushing. Rolling to left with use of grab bar: min/mod assist to complete motion. To left with max/total assist for left side assist. Use of draw sheet for support due to left shoulder and groin pain with movement. TRANSFERS Sit to/from stand from edge of sweetie-mat with uses of grab bar on right, sheet support under hips. Total assist of 3 to obtain full upright stance. Max left knee block, pt maintains right knee in flexed position. Pushes left with max/total assist to obtain midline positioning. Stand pivot : not safe to attempt. Use of cee w/c to/from bed Trialed use of transfer board w/c to level mat: draw sheet assist, max/total of 3 for left leg block, trunk control due to pushes left and posterior. Car transfer: not safe to attempt GAIT Unsafe to attempt ambulation 10, 50',150'. Static stance from edge of mat as noted above: stood grossly 60 seconds with max/total assist of 3. Ambulates 10' on compliant surfaces : not safe to attempt Unsafe to retrieve object from floor STAIRS Ascends/descends curb : not safe to attempt Acscends/descends 4, 12 steps unsafe to attempt at this time WHEELCHAIR MOBILITY Pt requires tilt in space w/c for upright positioning support, trunk control, head support. Left half lap tray and use of gel heel protector to assist with maintaining positioning. Use of heel protectors at bilateral knee to control pressure on fibular heads. Dependent for up to 150' OUTCOME MEASURES: AGITATED BEHAVIOR SCALE 18 POSTURAL ASSESSMENT OF STROKE : PROGRESS: Mr. Chaparro is tolerating therapy fair due to pain in left shoulder, left hip/groin, at times sacral area. He responds to interventions and frequent redirection due to very distractible. Focusing on sitting balance, tolerance, various position changes. He does work hard and will benefit fromtherapy to maximize functional gains, improve overall tolerance to mobility. Factors in Goal Achievement: Facilitating Factors: None Barriers: Pain, Strength limitations, Balance deficits and Motor control deficits Date Last Assessed: 11/16/2022 CARE Score Mg: 6: Independent. Walnut provides no assistance with tasks. A device may or may not have been used. 5: Set-up or clean-up assistance. Walnut sets up or cleans up, but does not assist with tasks. Walnut may have assisted prior to or following the activity. 4: Supervision or touching assistance. Walnut provides verbal cues or touching/steadying or contactguard assistance. Assistance may be provided throughout the activity or intermittently. 3: Partial/moderate assistance. Walnut does less than half the effort. Walnut lifts, holds, or supports trunk or limbs, but provides less than half the effort. 2: Substantial/maximal assistance. Walnut does more than half the effort. Walnut lifts or holds trunk or limbs, and provides more than half the effort. 1: Dependent. Walnut does all of the effort, or the assistance of two or more helpers is required for the patient to complete the activity. -: Inconsistent or incomplete documentation Activity not attempted values: 7: Patient refused 9: Not applicable - Not attempted and the patient did not perform this activity prior to the current illness, exacerbation, or injury. 10: Not attempted due to environmental limitations (e.g., lack of equipment, weather constraints) 88: Not attempted due to medical condition or safety concerns Residential Goals: Goal Status on Admission Current Status Car Transfer - CARE Score: 88 (10/29/221746 : Irlanda Sher PT) Car Transfer - CARE Score: 88(11/16/221200) Walk 10 Feet LTG: Dependent (pt will ambulate 10ft with hemiaide and mod/max of two) Walk 10 Feet -CARE Score: 88 (10/29/221746 : Irlanda Sher PT) Walk 10 Feet - CARE Score: 88 (11/16/221200) Walk 50 Feet with Two Turns - CARE Score: 88 (10/29/221746 : Irlanda Sher PT) Walk 50 Feet with Two Turns - CARE Score: 88 (11/16/221200) Walk 150 Feet - CARE Score: 88 (10/29/221746 : Irlanda Sher PT) Walk 150 Feet - CARE Score: 88 (11/16/221200) Walking 10 Feet on Uneven Surfaces - CARE Score: 88 (10/29/221746 : Irlanda Sher PT) [id number] Feet on Uneven Surfaces - CARE Score: 88 (11/16/221200) 1 Step (Curb) - CARE Score: 88 (10/29/221746 : Irlanda Sher PT) 1 Step (Curb) - CARE Score: 88 (11/16/221200) 4 Steps - CARE Score: 88 (10/29/221746 : Irlanda Sher PT) 4 Steps - CARE Score: 88 () 12 Steps - CARE Score: 88 (10/29/221746 : Irlanda Sher PT) 12 Steps - CARE Score: 88 (11/16/221200) Picking Up Object - CARE Score: 88 (10/29/221746 : Irlanda Sher PT) Picking Up Object - CAREScore: 88 (11/16/221200) Wheel 50 Feet with Two Turns LTG: Partial/moderate assistance (pt propel w/c 60ft with right UE/LE and mod assist for guidance.) Wheel 50 Feet with Two Turns - CARE Score: 88 (10/29/221746 : Irlanda Sher PT) Wheel 50 Feet with Two Turns - CARE Score: 1 (11/16/221200) Wheel 150 Feet - CARE Score: 88 (10/29/221746 : Irlanda Sher PT) Wheel 150 Feet - CARE Score: 1 (11/16/221200) Additional Goals & Status: N/A PT 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 Lithographic 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 Goals Flowsheet Row Most Recent Value Other PT Offset Lithographic 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 Goals Other Goals - Offset Lithographic 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 Offset Lithographic 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 1, Offset Lithographic 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 2, Offset Lithographic 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 3, Offset Lithographic 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 4 Filed on: 10/29/20221748 Other Residential Goal 1 w/c to/from level surface with transfer board and mod assist Filed on: 10/29/20221748 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 Lithographic 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 Goal 1 Status Established Filed on: 10/29/20221748 Other Residential Goal 2 sit to stand to hemiaide and mod assist of two Filed on: 10/29/20221748 Other Residential Goal 2 Status Established Filed on: 10/29/20221748 Other Residential Goal 3 tolerate upright position in regular w/c vs tilt in space w/c when out of bed Filed on: 10/29/20221748 Other Residential Goal 3 Status Established Filed on: 10/29/20221748 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 Lithographic 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 Goal 4 sit to/from supine with mod assist. 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 Expected Achievement Date: 11/23/2022 Status: Not Achieved PT Short Term Goal 4: Details: Pt ambulate 5ft in parallel bars with mod/max assist of two. Expected Achievement Date: 11/23/2022 Goal Status: Not Achieved Duration Expiration Date: 11/24/2022 IRLANDA SHER, PT 11/16/2022 OT Weekly Progress Note OT Weekly Progress Note by Ekaterina Forman OT at 11/16/2022 3:41 PM Author: Ekaterina Forman OT Service: -- Author Type: Occupational Therapist Filed: 11/16/2022 3:49 PM Date of Service: 11/16/2022 Continuous Improvement Consultant: Ekaterina Forman OT (Occupational Therapist) Occupational Therapy Weekly Progress Note Patient Name: Esperanza Chaparro Patient Birthdate: 1955 OT Current Functional Status: Mr. Chaparro's current status is as follows: EATING: with supervision requiring cues to locate items on left side of tray ORAL HYGIENE: with supervision requires cues to locate items on left side, cues to brush thoroughlyon left side of mouth. Mr. Chaparro used right hand to perform task. TOILETING: with dependence with all aspects at bed level SHOWER/BATHING: with maximal assistance (76% or more) with sponge bathing at bed level. Able to wash face and part of chest with right UE. UPPER BODY DRESSING: with maximal assistance (76% or more), assist with threading right UE into sleeve of shirt. LOWER BODY DRESSING: with dependence with all aspects FOOTWEAR: with dependence with all aspects ROLL LEFT/RIGHT: with moderate to dependence (moderate assistance of one rolling to left and dependence rolling to right) on low air loss mattress SIT TO LYING: with dependence on low air loss mattress LYING TO SITTING: with dependence on low air loss mattress SIT TO STAND: with dependence (total assist of 3 per PT) BED TO CHAIR TRANSFER: with dependence, cee lift requiring assistance of 3 for safety TOILET TRANSFER: not performed due to safety concerns with balance Mr. Chaparro tends to push towards left side when in sitting and requires maximal cues to attend to left side. Mr. Chaparro presents with impaired cognition with decreased problem solving, memory, insight, safety, attention to task, direction following, and increase in impulsivity. Mr. Chaparro does not exhibit any active movement with left UE. Poor sitting balance in w/c and mat/bed. Mr. Chaparro demonstrated slight progress towards bathing and UB dressing as well as with rolling to left in bed. However, he continues to be limited in these areas as well as remaining selfcare aspects, transfers, balance, endurance, left UE function, visual perception, cognition/safety. Mr. Chaparro would benefit from continuedOT services to work on maximizing functional independence. Facilitating Factors in Goal Achievement: Support of family or caregiver and Improved function Barriers to Goal Achievement: Pain, Strength limitations, ROM limitations, Balance deficits, Diminished endurance, Impaired skin integrity, Motor control deficits, Tone deficits, Decreased patient compliance, Decreased patient understanding, Cognitive deficits, Decreased safety awareness, Visual deficits and Behavioral issues Date Last Assessed: 11/16/2022 Patient needs assistance with the following activities: Activities of daily living, Going out in the community, Memory, Use of patient wine pasteurizer, Use of bathroom equipment, Vision, Sitting balance, Positioning, Rolling, Head control and Reaching Will patient require a prosthetic or orthotic device upon discharge: No CARE Score Mg: 6: Independent. Walnut provides no assistance with tasks. A device may or may not have been used. 5: Set-up or clean-up assistance. Walnut sets up or cleans up, but does not assist with tasks. Walnut may have assisted prior to or following the activity. 4: Supervision or touching assistance. Walnut provides verbal cues or touching/steadying or contactguard assistance. Assistance may be provided throughout the activity or intermittently. 3: Partial/moderate assistance. Walnut does less than half the effort. Walnut lifts, holds, or supports trunk or limbs, but provides less than half the effort. 2: Substantial/maximal assistance. Walnut does more than half the effort. Walnut lifts or holds trunk or limbs, and provides more than half the effort. 1: Dependent. Walnut does all of the effort, or the assistance of two or more helpers is required for the patient to complete the activity. -: Inconsistent or incomplete documentation Activity not attempted values: 7: Patient refused 9: Not applicable - Not attempted and the patient did not perform this activity prior to the current illness, exacerbation, or injury. 10: Not attempted due to environmental limitations (e.g., lack of equipment, weather constraints) 88: Not attempted due to medical condition or safety concerns Residential Goals: Goal Status on Admission Current Status Eating - CARE Score: 4 (10/29/22 1021 : Luke Robertson OT) Eating - CARE Score: 4 (11/16/22 1542) Oral Hygiene - CARE Score: 3 (10/29/22 1021 : Luke Robertson OT) Oral Hygiene - CARE Score: 4 (11/16/22 154) Toileting Hygiene LTG: Partial/moderate assistance Toileting Hygiene - CARE Score: 1 (10/29/22 1021: Luke Robertson OT) Toileting Hygiene - CARE Score: 1 (11/16/22 154) Shower/Bathe Self LTG: Partial/moderate assistance Shower/Bathe Self - CARE Score: 1 (10/29/22 1021: Luke Robertson OT) Shower/Bathe Self - CARE Score: 2 (11/16/22 154) Upper Body Dressing LTG: Partial/moderate assistance Upper Body Dressing - CARE Score: 1 (10/29/22 1021 : Luke Robertson OT) Upper Body Dressing - CARE Score: 2 (11/16/22 154) Lower Body Dressing LTG: Partial/moderate assistance Lower Body Dressing - CARE Score: 1 (10/29/22 1021 : Luke Robertson OT) Lower Body Dressing - CARE Score: 1 (11/16/22 154) Putting On/Taking Off Footwear LTG: Partial/moderate assistance Putting On/Taking Off Footwear - CARE Score: 1 (10/29/22 1021 : Luke Robertson OT) Putting On/Taking Off Footwear - CARE Score: 1 (11/16/22 154) Roll Left and Right - CARE Score: 1 (10/29/22 1021 : Luke Robertson OT) Roll Left and Right - CARE Score: 1 (11/16/22 154) Sit to Lying - CARE Score: 1 (10/29/22 1021 : Luke Robertson OT) Sit to Lying - CARE Score: 1 (11/16/22 154) Lying to Sitting on Side of Bed - CARE Score: 1 (10/29/22 1021 : Luke Robertson OT) Lying toSitting on Side of Bed - CARE Score: 1 (11/16/221541) Sit to Stand - CARE Score: 88 (10/29/22 1021 : Luke Robertson, OT) Sit to Stand - CARE Score:1 (11/16/221541) Chair/Doy-sz-Oradh Transfer LTG: Partial/moderate assistance Chair/Vnc-mm-Znteh Transfer - CARE Score: 88 (10/29/22 1021 : Luke Robertson, OT) Chair/Ijs-cv-Taefb Transfer - CARE Score: 1 (11/16/221541) Toilet Transfer LTG: Partial/moderate assistance Toilet Transfer - CARE Score: 88 (10/29/22 1021 : Luke Robertson, OT) Toilet Transfer - CARE Score: 88 (11/16/221541) Additional Goals & Status: N/A OT Short Term Goal 1: Focus: Toileting Hygiene Level of Assistance to Meet Short Term Goal: Physical assistance 50%-74% Expected Achievement Date: 11/23/2022 Goal Status: Not Achieved OT Short Term Goal 2: Focus: Shower/Bathe Level of Assistance to Meet Short Term Goal: Physical assistance 50%-74% Expected Achievement Date: 11/17/2022 Goal Status: Achieved OT Short Term Goal 3: Focus: Upper Body Dressing Level of Assistance to Meet Short Term Goal: Physical assistance 50%-74% Expected Achievement Date: 11/09/2022 Goal Status: Achieved OT Short Term Goal 4: Focus: Lower Body Dressing Level of Assistance to Meet Short Term Goal: Physical assistance 50%-74% Expected Achievement Date: 11/23/2022 Goal Status: Not Achieved OT Short Term Goal 5: Focus: Toilet Transfer Level of Assistance to Meet Short Term Goal: Physical assistance 50%-74% Expected Achievement Date: 11/23/2022 Goal Status: Not Achieved OT Short Term Goal 6: Focus: Shower/Bathe Level of Assistance to Meet Short Term Goal: Physical assistance 25%-49% Expected Achievement Date: 11/23/2022 Goal Status: Not Achieved OT Short Term Goal 7: Focus: Upper Body Dressing Level of Assistance to Meet Short Term Goal: Physical assistance 25%-49% Expected Achievement Date: 11/23/2022 Goal Status: Not Achieved Duration Expiration Date: 11/26/2022 EKATERINA FORMAN OT 11/16/2022 OIL GAS AND PIPE TESTER Weekly Progress Note OIL GAS AND PIPE TESTER Weekly Progress Note by [facility] at 11/16/2022 3:48 PM Author: [facility] Service: Therapy Author Type: Speech and Language Pathologist Filed: 11/16/2022 4:10 PM Date of Service: 11/16/2022 Continuous Improvement Consultant: [facility] Tierney (Speech and Language Pathologist) Speech Language Pathologist Weekly Progress Note Patient Name: Esperanza Chaparro Patient Birthdate: 1955 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 Chaparro is a 67 year old male referred to speech therapy for evaluation and treatment following recent hospitalization with a diagnosis of CVA. Patient presented to the hospital initially on 10/12/22 due to a peritonsillar abscess, reporting dysphagia symptoms with liquids and solids. While there, he developed left sided weakness with confirmation of CVA. He was living with his sister prior to admission and was independent with ADLs and IADLs and driving. 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 Current functional status is as follows: PROGRESS 11/02/22: Evaluation was completed on 10/29/22. All goals remain appropriate to continue at this time due to limited number of sessions thus far. Patient is distracted by pain and discomfort when up in wheelchair during therapy sessions. He requires frequent encouragement for task persistence. Patient requires assistance with tray set-up and at least some degree of supervision/assistance with feeding due to left visual impairment and left side weakness. PROGRESS 11/06/22: Patient is making good progress towards his speech therapy goals. He has participated in discussion this week regarding stroke risk factors and prevention. He has shown improved ability to solve basic problem-solving situations. He is using compensatory strategies with minimal cueing to locate information on the left side for visual matching tasks. Patient is managing current diet well and would benefit from further assessment to determine safety of upgraded solid textures at this time. PROGRESS 11/12/22: Mr. Chaparro is seen for 45 minutes of speech therapy daily with focus on dysphagia management, functional communication and cognitive retraining. He is making progress in all goaled areas. Trials of regular consistency food items have been completed this week. Patient is recalling safe swallow strategies and using them with minimal-moderate assistance depending on comfort and pain level. Patient's attention during meals and structured tasks is improving, however, when structure isnot imposed it is very difficult for him to focus due to both internal and external events. Improvements noted in recall of daily events and therapy information. Problem solving and reasoning continue to require minimal assistance. He will need 24 hour assistance with ADLs and IADLS at discharge. PROGRESS 11/16/22: Mr. Chaparro continues to make progress in therapy. Improvement noted in his ability to maintain wakefulness for participation in therapy tasks. He continues to be distracted by frequent pain and discomfort while in the wheelchair. Patient has participated in continued trials of regular texture food items. He continues to present with pocketing of food on the left and lingual residue; however, less oral spillage is noted. Current diet of Soft and Bite Sized remains the safest and least restrictive diet at this time. Some improvement noted in functional problem-solving/reasoning skills for basic daily tasks. Patient is able to remember familiar people and daily therapy events at least 75% of the time. SWALLOWING: Current diet: SOFT & BITE SIZED with THIN LIQUIDS (IDDSI 6/0) Oral pocketing and lingual residue noted. Oral care is necessary following each meal. COMMUNICATION: COMPREHENSION- SUPERVISION. Patient is able to comprehend information regarding basic needs over 90% of the time. Increased difficulty noted with comprehension of complex or abstract information. EXPRESSION- SUPERVISION. Patient is able to express information regarding basic needs over 90% of the time. Increased difficulty noted with comprehension of complex or abstract information. Patient presents with mild dysarthria but mostly intelligible speech. COGNITION: PROBLEM-SOLVING- MINIMAL ASSISTANCE. Patient is able to solve routine problems at least 75% of the time. Improvement noted in ability to provide appropriate responses for basic verbal problem-solving situations. Increased assistance required for multi-step sequencing and mathematical reasoning tasks. MEMORY: MINIMAL ASSISTANCE. Patient is able to recognize and remember people, routines, and requests at least 75% of the time. SOCIAL INTERACTION: Improved to SUPERVISION. Improvement noted in wakefulness with increased participation in therapy tasks. RECOMMENDATION: Mr. Chaparro will benefit from continued speech therapy services to address the following plan of care: patient and family education; use of compensatory strategies; interventions for improved strength and movement of left facial musculature; interventions for improved swallowing function to manage least restrictive solid and liquid consistencies; and cognitive retraining for functional reasoning and memory skills to increase safety and independence at discharge. 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 Problem Solving Expected Achievement Date: 11/25/22 Moderate assistance Achieved at minimal assistance Level of Assistance to Meet Memory: Min assist (10-24%) Memory Details: Improve functional memory skills to minimal assistance to recognize and remember people, routines, and requests at least 75% of the time. Memory Expected Achievement Date: 11/25/22 Moderate assistance Achieved at minimal assistance Swallowing Details: Safely manage regular texture solids and thin liquids with no clinical signs ofdysphagia. 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 REVISED 11/06/22 : Complete functional problem-solving/reasoning tasks with 80% accuracy. Expected Achievement Date: 11/20/2022 Goal Status: Partially Achieved Memory: Details: Complete short term memory tasks with 70% accuracy. REVISED 11/06/22: Complete short term memory tasks with 80% accuracy. Expected Achievement Date: 11/20/2022 Goal Status: Partially Achieved Additional Cognition: Details: Participate in further assessment of cognitive skills using a standardized measure. Expected Achievement Date: 11/20/2022 Goal Status: Not Achieved Swallowing: Details: Safely manage current diet and thin liquids using compensatory strategies with no clinicalsigns of dysphagia. Expected Achievement Date: 11/09/2022 Goal Status: Achieved Other STG 1: Focus: Swallowing Details: Participate in NMES (PENS) to stimulate left facial musculature. Expected Achievement Date: 11/20/2022 Goal Status: Not Achieved Other STG 2: Focus: Additional Cognition Level of Assistance to Meet Other STG 2: Independent Details: Recall 2 factors for stroke prevention independently. Expected Achievement Date: 11/20/2022 Goal Status: Partially Achieved Other STG 3: Focus: Additional Cognition Level of Assistance to Meet Other STG 3: Min assist (10-24%) Details: Complete tasks to target left attention with minimal assistance. Expected Achievement Date: 11/20/2022 Goal Status: Partially Achieved Other STG 4: Focus: Swallowing Details: Participate in trials to assess for safety of diet upgrade. Expected Achievement Date: 11/20/2022 Goal Status: Partially Achieved Duration Expiration Date: 11/25/[address] 11/16/2022 Respiratory Team Conference: Nutrition Team Conference: Dietary Orders (From admission, onward) Start Ordered 10/29/22 1700 Nutritional supplement Oral 3 times daily with meals Comments: Send vanilla ensure high protein TID End/Expires: Until Specified Question Answer Comment Administration Route: Oral Place order in third constitution party system. Done 10/29/22 1346 10/28/222111 Adult Diet Regular; 6 Soft & Bite-Sized (NDD III); 0 Thin (All Liquids) Diet effective now End/Expires: Until Specified References: IDDSI Website Question Answer Comment Diet Type: Regular Diet Texture: 6 Soft & Bite-Sized (NDD III) Liquid Consistency: 0 Thin (All Liquids) Place order in third constitution party system. Done 10/28/222110 Height: 5' 11 (180.3 cm) Admit Weight: 228 lb 4 oz (103.5 kg) Current Weight: 229 lb (103.9 kg) Body mass index is 31.94 kg/m??. Calorie Count: Plan of Care - Nutrition Care Plans 1 Author: Luke Elizalde RD Service: -- Author Type: Registered Dietitian Filed: 11/11/2022 12:23 PM Date of Service: 11/11/2022 12:23 PM Status: Signed Continuous Improvement Consultant: Luke Elizalde RD (Registered Dietitian) Problem: Inadequate Oral Intake Description: Oral food/beverage intake that is less than established reference standards or recommendations based on physiological needs. Related to: Decreased ability to consume sufficient energy, e.g., increased nutrition needs due to prolonged catabolic illness As evidenced by: estimated protein needs of 90-95 g/day. Goal: Improve Nutritional Status Outcome: Progressing Flowsheets (Taken 10/29/2022 7929) Meals and Snacks: (soft and bite sized (6) diet) General healthful diet Medical Food Supplement Therapy: (vanilla Ensure high protein TID) Commercial beverage/Oral nutrition supplement 1 Author: Luke Elizalde RD Service: -- Author Type: Registered Dietitian Filed: 11/17/2022 9:33 AM Date of Service: 11/17/2022 9:33 AM Status: Signed Continuous Improvement Consultant: Luke Elizalde RD (Registered Dietitian) Problem: Inadequate Oral Intake Description: Oral food/beverage intake that is less than established reference standards or recommendations based on physiological needs. Related to: Decreased ability to consume sufficient energy, e.g., increased nutrition needs due to prolonged catabolic illness As evidenced by: estimated protein needs of 90-95 g/day. Goal: Improve Nutritional Status Outcome: Progressing Flowsheets (Taken 10/29/2022 1496) Meals and Snacks: (soft and bite sized (6) diet) General healthful diet Medical Food Supplement Therapy: (vanilla Ensure high protein TID) Commercial beverage/Oral nutrition supplement Wound: Wound Rx: None Cosigned by Carolina Garibay MD at 11/17/2022 1:38 PM CDT Associated attestation - Carolina Garibay MD - 11/17/2022 2:38 PM EDT A team conference was held on 11/17/2022 and included members of the multidisciplinary team identified in the attendance section of this note. Issues related to Mr. Sainis status include; Patient Active Problem List Diagnosis Cerebrovascular accident Chronic obstructive pulmonary disease Coronary arteriosclerosis Primary hypertension Dysphagia Mr. Sainis progress toward rehabilitation goals, impediments to attaining these goals, and associated revisions to the treatment plans and goals were discussed by the team. Details of this multidisciplinary process are included below. Issues of particular significance at this time regarding Mr. Chaparro's progress towards rehabilitation goals and treatment plan include: Discussed about functional gains , discharge planning ,DME , follow up therapies and current medical condition during team conference . As discussed during this team conference, I concur with the decisions set forth by the members of the multidisciplinary team. Mr. Chaparro continues to require frequent physician visits and 24 hours per day acute rehabilitation nursing care in order to meet medical needs and progress toward the achievement of the rehabilitation goals. CAROLINA GARIBAY MD 11/17/2022 1:38 PM CDT * OIL GAS AND PIPE TESTER Treatment Note - [facility] - 11/17/2022 11:22 AM CDT Speech Language Pathologist Treatment Patient Name: Esperanza Chaparro Patient Birthdate: 1955 Patient Subjective Report - I'd like to have a [place]. Pain Assessment Pain Context: Therapy Assessment Prior to Treatment (11/17/221121) Pain Assessment: NRS 0-10 (11/17/221121) Pain Score: 10 (11/17/221121) Pain Severity - NRS (Calculated): Severe (11/17/221121) Pain Location: Shoulder (11/17/221121) Pain Orientation: Left (11/17/221121) Pain Descriptors: Aching (11/17/221121) Pain Onset: Ongoing (11/17/221121) Pain Frequency: Constant/continuous (11/17/221121) Aggravating Factors: Activity Duration (11/17/221121) Pain Interventions Education Provided: Patient (11/17/22 1210) Non-Pharmacologic Pain Interventions: Distractions, Position/Reposition (11/17/22 1210) Emotional/Spiritual Pain Interventions: Emotional Support (11/17/22 1210) Cognitive Communication: Immediate memory, Short-term memory, Processing information of increased length or complexity, Semi-complex to complex attention, Task persistence, Self monitoring, Speed of processing, Verbal problem solving and Insight Dysphagia Treatment: Swallow strategy training, Oral care and Dysphagia diet training Recommended diet: IDDSI 6 - Soft & Bite-Sized / NDD3, Pills Whole in IDDSI 4 (Pureed / Extremely Thick) and IDDSI 0 - Thin Liquids / All Liquids Compensatory swallowing techniques: Small bites, Small sips, Eat slowly-control rate, Seated upright with all PO intake, Monitor oral spillage, Oral care post PO intake and Other (comment) (Avoid large bore straw) Level of supervision at meals recommended: 1 to 1 assistance due to cognitive or motor deficits Patient/Caregiver Training: Completed with patient, Therapy goals and treatment plan, Oral hygiene,Cognitive strategies, Cognitive Communication Disorder, Dysphagia, Swallow strategies and Current diet ST Narrative:: 1. Patient was seen for therapy initially in the day room then moved to his room, reclined in tilt in space wheelchair; alert and cooperative with therapy tasks. Patient continues to report pain/discomfort while sitting in wheelchair. 2. Improved oral hygiene noted this date. Patient was unaware of how oral care was completed this morning. 3. Patient was able to provide two logical causes for functional problem situations with 80% accuracy. 4. Patient was assisted with set up of lunch tray consisting of soft and bite sized solids. Patientfed himself but had difficulty with spillage of food. OIL GAS AND PIPE TESTER assisted with feeding his jello. Current diet of soft and bite sized remains the safest and least restrictive diet texture at this time. Cough noted x1 while drinking milk from straw. 5. Some improvement noted in left facial strength and awareness of food on the left side of the oral cavity. Speech intelligibility remains compromised at times due to fast rate and imprecise articulation. 6. Patient remained in his room with call light left within reach. Chair alarm was activated. ST Session Outcomes: Patient/family education progressing, Progressing toward STGs, Tolerated treatment well and Minimal cues during session ST Summary Plan of Care: Continue with current plan of care Pain Evaluation and Follow-up Response to Therapy Interventions: Other (comment) (No change) (11/17/22 1210) Pain Reassessment: 10 (11/17/22 1210) Nursing notified of patient's pain assessment: Other (comment) (Patient had pain medications earlier.) (11/17/22 1210) Therapy Minutes Individual Concurrent Co-Treat Time In : 1122 Time Out: 1210 Breaks/Pauses (Min): 0 mins Total Time with Patient (Min): 48 min Missed Minutes : [address] 11/17/2022 * PT Treatment Note - Irlanda Sher, PT - 11/17/2022 10:38 AM CDT PT Treatment Patient Name: Esperanza Chaparro Patient Birthdate: 1955 Patient Subjective Report - pt reports feeling ok, stated he didn't sleep much. Reports pain in left should and left groin with any movement. Ok for therapy. Pain Assessment Pain Context: Therapy Assessment Prior to Treatment (11/17/22899) Pain Assessment: NRS 0-10 (11/17/22899) Pain Score: 10 (pain with any movement.) (11/17/22899) Pain Severity - NRS (Calculated): Severe (11/17/22899) Pain Location: Shoulder, Groin (11/17/22899) Pain Orientation: Left (11/17/22899) Pain Descriptors: Aching, Sore, Sharp (11/17/22899) Pain Onset: Ongoing (11/17/22899) Pain Frequency: Constant/continuous (11/17/22899) Aggravating Factors: Activity Duration (11/17/22899) Functional Impact: Turning, Transfers, Self care/ADL's (11/17/22899) Pre-therapy pain intervention required: Patient expressed pain is tolerable/able to proceed, Nurse notified (11/17/22899) Pain Interventions Education Provided: Patient (11/17/22944) Non-Pharmacologic Pain Interventions: Exercise/Activity, Position/Reposition, Distractions (11/17/22944) Emotional/Spiritual Pain Interventions: Empathetic Discussion (11/17/22944) Bed Mobility Comment: Supine in bed: rolls left with use of left handrail, cues to bend right leg and push: min/mod assist to complete motion. Use of drawsheet for max/total rolling to right side due to pt resists due to left shoulder pain. Pillow support between legs to control left leg, assist with left groin pain. Therapeutic Activities and Neuromuscular Re-education: Pt in bed upon arrival. PROM to left leg in lower range at hip due to groin pain. Performed in hip/knee flexion/extension, hip ab/adduction, ankle DF. Multiple bed mobility/rolling for removal of soiled pad, rosa clean pull up and pants- total assistof two. Pt does assist with right leg positioning with cues. Pressure line noted on upper left thigh into groin area- appears from old depends. Wound Care Nurse Lakeisha notified and assessed pt. Use of cee for bed to tilt in space w/c transfer, total assist. Up in chair: left UE positioned on left half lap tray and pillow for support. Head rest further adjusted to promote midline positioning. Continued education on deficits s/p CVA, benefit of position changes and up out of bed. Skin Issues Narrative: Pressure line noted on upper left thigh into groin area- appears from old depends. Wound Care Nurse Lakeisha notified and assessed pt. PT Treatment Outcomes:: Patient tolerated session fair, Patient is progressing toward STG and Safety device reapplied PT Summary:: Mr. Chaparro tolerated the session fair due to pain with all mobility in left shoulder andgroin. Frequent redirection required and education on benefit of mobility, pain in left shoulder s/p CVA, positioning. He voices understanding but continued education recommended. He will continue tobenefit from intensive therapy to maximize functional gains with mobility. PT Summary Plan of Care: Continue with current plan of care Pain Evaluation and Follow-up Response to Therapy Interventions: Other (comment) (tolerated session. still reports 02/16 at end of session. received pain meds during session.) (11/17/22944) Pain Reassessment: 10 (11/17/22944) Nursing notified of patient's pain assessment: Primary Nurse (11/17/22944) Therapy Minutes Individual Concurrent Co-Treat Individual (PT) Time In : 0900 Time Out: 944 Total Time with Patient (Min): 45 min IRLANDA SHER, PT 11/17/2022 CHART CORRECTION: Type of Chart Edit: Addendum Reason for Correction: Additional information added (added skin care info in that section.) Name: Irlanda Sher, PT Date: 11/17/2022 Time: 10:49 CDT * OT Treatment Note - Luke Robertson, OT - 11/17/2022 9:45 AM CDT Occupational Therapy Treatment Patient Name: Esperanza Chaparro Patient Birthdate: 1955 Patient Subjective Report - try not to move my left arm! It hurts so much! Pain Assessment Pain Context: Therapy Assessment Prior to Treatment (11/17/22 100) Pain Assessment: NRS 0-10 (11/17/221007) Pain Score: 10 (11/17/221007) Pain Severity - NRS (Calculated): Severe (11/17/221007) Pain Location: Generalized (11/17/221007) Pain Interventions Education Provided: Patient (11/17/221053) Non-Pharmacologic Pain Interventions: Position/Reposition (11/17/221053) ADL Training: ADL Training Narrative: EATING: ORAL HYGIENE: supervision, occasional cues for thoroughness; pt uses R hand only TOILETING: dependent for using urinal while seated in w/c (pt was not able to void). BATHING: UB sponge bathing while seated in w/c, mas assist; pt was able to wash his face with cues for thoroughness; assist needed for washing underarms, arms and chest UB DRESSING: max assist; pt helps minimally with donning shirt over head and doffing shirt from left arm LB DRESSING: PUTTING ON/TAKING OFF FOOTWEAR: ROLL LEFT AND RIGHT: SIT TO LYING: LYING TO SITTING: SIT TO STAND: BED TO CHAIR TRANSFER: TOILET TRANSFER: OT Therapeutic Activity: Therapeutic Exercise: Pt needed dependent assist for repositioning hips in the wheelchair, and he was tilted back for pressure relief several times for several minutes during session. Pt participated in very slow gentle PROM of L UE, to about 90 degrees shoulder flexion. He needed frequent short rest breaks and encouragement. He c/o pain in all aspects of L UE. Mr Chaparro used 2# weight in his right hand for 20 reps of chest press, shoulder flexion, horizontal ab/adduction. Treatment, Outcomes and Plan: OT Narrative:: Mr Chaparro tolerated session well. He continues to need extensive assistance for ADLs b/c of left sided weakness and left inattention. He continues to report pain in L UE with any ADLs/movement. OT Treatment Outcomes:: Safety device reapplied, Patient tolerated treatment well, Patient is progressing toward STG(s) and Goals met for this session OT Summary Plan of Care: Continue with current plan of care Pain Evaluation and Follow-up Pain Reassessment: 4 (11/17/22 1054) Nursing notified of patient's pain assessment: Primary Nurse (11/17/22 1054) Therapy Minutes Individual Concurrent Co-Treat Individual (OT) Time In : 0945 Time Out: 1115 Total Time with Patient (Min): 90 min LUKE ROBERTSON OT 11/17/2022 * Plan of Care - Luke Elizalde RD - 11/17/2022 9:33 AM CDT Problem: Inadequate Oral Intake Description: Oral food/beverage intake that is less than established reference standards or recommendations based on physiological needs. Related to: Decreased ability to consume sufficient energy, e.g., increased nutrition needs due to prolonged catabolic illness As evidenced by: estimated protein needs of 90-95 g/day. Goal: Improve Nutritional Status Outcome: Progressing Flowsheets (Taken 10/29/2022 1338) Meals and Snacks: (soft and bite sized (6) diet) General healthful diet Medical Food Supplement Therapy: (vanilla Ensure high protein TID) Commercial beverage/Oral nutrition supplement * Non-treatment Therapy Note - Atif Noriega, PT - 11/17/2022 8:34 AM CDT .Prior to team conference, the Primary Therapist Irlanda Sher, PT and I have communicated regarding current patient status, progress towards goals, and modifications to plan of care, as appropriate. * Non-treatment Therapy Note - Mehdi Goldstein, OT - 11/17/2022 7:51 AM CDT Prior to team conference, the Primary Therapist Ekaterina Forman, OT and I have communicated regarding current patient status, progress towards goals, and modifications to plan of care, as appropriate. 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 Chaparro is a 67 year old male referred to speech therapy for evaluation and treatment following recent hospitalization with a diagnosis of CVA. Patient presented to the hospital initially on 10/12/22 due to a peritonsillar abscess, reporting dysphagia symptoms with liquids and solids. While there, he developed left sided weakness with confirmation of CVA. He was living with his sister prior to admission and was independent with ADLs and IADLs and driving. 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 Current functional status is as follows: PROGRESS 11/02/22: Evaluation was completed on 10/29/22. All goals remain appropriate to continue at this time due to limited number of sessions thus far. Patient is distracted by pain and discomfort when up in wheelchair during therapy sessions. He requires frequent encouragement for task persistence. Patient requires assistance with tray set-up and at least some degree of supervision/assistance with feeding due to left visual impairment and left side weakness. PROGRESS 11/06/22: Patient is making good progress towards his speech therapy goals. He has participated in discussion this week regarding stroke risk factors and prevention. He has shown improved ability to solve basic problem-solving situations. He is using compensatory strategies with minimal cueing to locate information on the left side for visual matching tasks. Patient is managing current diet well and would benefit from further assessment to determine safety of upgraded solid textures at this time. PROGRESS 11/12/22: Mr. Chaparro is seen for 45 minutes of speech therapy daily with focus on dysphagia management, functional communication and cognitive retraining. He is making progress in all goaled areas. Trials of regular consistency food items have been completed this week. Patient is recalling safe swallow strategies and using them with minimal-moderate assistance depending on comfort and pain level. Patient's attention during meals and structured tasks is improving, however, when structure isnot imposed it is very difficult for him to focus due to both internal and external events. Improvements noted in recall of daily events and therapy information. Problem solving and reasoning continue to require minimal assistance. He will need 24 hour assistance with ADLs and IADLS at discharge. PROGRESS 11/16/22: Mr. Chaparro continues to make progress in therapy. Improvement noted in his ability to maintain wakefulness for participation in therapy tasks. He continues to be distracted by frequent pain and discomfort while in the wheelchair. Patient has participated in continued trials of regular texture food items. He continues to present with pocketing of food on the left and lingual residue; however, less oral spillage is noted. Current diet of Soft and Bite Sized remains the safest and least restrictive diet at this time. Some improvement noted in functional problem-solving/reasoning skills for basic daily tasks. Patient is able to remember familiar people and daily therapy events at least 75% of the time. SWALLOWING: Current diet: SOFT & BITE SIZED with THIN LIQUIDS (IDDSI 6/0) Oral pocketing and lingual residue noted. Oral care is necessary following each meal. COMMUNICATION: COMPREHENSION- SUPERVISION. Patient is able to comprehend information regarding basic needs over 90% of the time. Increased difficulty noted with comprehension of complex or abstract information. EXPRESSION- SUPERVISION. Patient is able to express information regarding basic needs over 90% of the time. Increased difficulty noted with comprehension of complex or abstract information. Patient presents with mild dysarthria but mostly intelligible speech. COGNITION: PROBLEM-SOLVING- MINIMAL ASSISTANCE. Patient is able to solve routine problems at least 75% of the time. Improvement noted in ability to provide appropriate responses for basic verbal problem-solving situations. Increased assistance required for multi-step sequencing and mathematical reasoning tasks. MEMORY: MINIMAL ASSISTANCE. Patient is able to recognize and remember people, routines, and requests at least 75% of the time. SOCIAL INTERACTION: Improved to SUPERVISION. Improvement noted in wakefulness with increased participation in therapy tasks. RECOMMENDATION: Mr. Chaparro will benefit from continued speech therapy services to address the following plan of care: patient and family education; use of compensatory strategies; interventions for improved strength and movement of left facial musculature; interventions for improved swallowing function to manage least restrictive solid and liquid consistencies; and cognitive retraining for functional reasoning and memory skills to increase safety and independence at discharge. The Patient: [ ]is able to state 2 risk factors without VCs prior to discharge [X ]requires cues to recall 2 stroke risk factors [ ] Is unable to state stroke risk factors due to communication or cognitive deficits Facilitating Factors in Goal Achievement: Patient compliance, Improvement in cognitive skills, Progress to date, Increased visual acuity/attention and Support of other(s) Barriers to Goal Achievement: Pain, Other (comment) and Visual inattention/neglect (cognition) Date Last Assessed: 11/16/2022 Residential Goals: Goal Status on Evaluation Current Progress Towards Goal Level of Assistance to Meet Problem Solving: Min assist (10-24%) Problem Solving Details: Improve functional problem-solving skills to minimal assistance to solve routine problems at least 75% of the time. Problem Solving Expected Achievement Date: 11/25/22 Moderate assistance Achieved at minimal assistance Level of Assistance to Meet Memory: Min assist (10-24%) Memory Details: Improve functional memory skills to minimal assistance to recognize and remember people, routines, and requests at least 75% of the time. Memory Expected Achievement Date: 11/25/22 Moderate assistance Achieved at minimal assistance Swallowing Details: Safely manage regular texture solids and thin liquids with no clinical signs ofdysphagia. 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 REVISED 11/06/22 : Complete functional problem-solving/reasoning tasks with 80% accuracy. Expected Achievement Date: 11/20/2022 Goal Status: Partially Achieved Memory: Details: Complete short term memory tasks with 70% accuracy. REVISED 11/06/22: Complete short term memory tasks with 80% accuracy. Expected Achievement Date: 11/20/2022 Goal Status: Partially Achieved Additional Cognition: Details: Participate in further assessment of cognitive skills using a standardized measure. Expected Achievement Date: 11/20/2022 Goal Status: Not Achieved Swallowing: Details: Safely manage current diet and thin liquids using compensatory strategies with no clinicalsigns of dysphagia. Expected Achievement Date: 11/09/2022 Goal Status: Achieved Other STG 1: Focus: Swallowing Details: Participate in NMES (PENS) to stimulate left facial musculature. Expected Achievement Date: 11/20/2022 Goal Status: Not Achieved Other STG 2: Focus: Additional Cognition Level of Assistance to Meet Other STG 2: Independent Details: Recall 2 factors for stroke prevention independently. Expected Achievement Date: 11/20/2022 Goal Status: Partially Achieved Other STG 3: Focus: Additional Cognition Level of Assistance to Meet Other STG 3: Min assist (10-24%) Details: Complete tasks to target left attention with minimal assistance. Expected Achievement Date: 11/20/2022 Goal Status: Partially Achieved Other STG 4: Focus: Swallowing Details: Participate in trials to assess for safety of diet upgrade. Expected Achievement Date: 11/20/2022 Goal Status: Partially Achieved Duration Expiration Date: 11/25/[address] 11/16/2022 * OT Weekly Progress Note - Ekateirna Forman, OT - 11/16/2022 3:41 PM CDT Occupational Therapy Weekly Progress Note Patient Name: Esperanza Chaparro Patient Birthdate: 1955 OT Current Functional Status: Mr. Chaparro's current status is as follows: EATING: with supervision requiring cues to locate items on left side of tray ORAL HYGIENE: with supervision requires cues to locate items on left side, cues to brush thoroughlyon left side of mouth. Mr. Chaparro used right hand to perform task. TOILETING: with dependence with all aspects at bed level SHOWER/BATHING: with maximal assistance (76% or more) with sponge bathing at bed level. Able to wash face and part of chest with right UE. UPPER BODY DRESSING: with maximal assistance (76% or more), assist with threading right UE into sleeve of shirt. LOWER BODY DRESSING: with dependence with all aspects FOOTWEAR: with dependence with all aspects ROLL LEFT/RIGHT: with moderate to dependence (moderate assistance of one rolling to left and dependence rolling to right) on low air loss mattress SIT TO LYING: with dependence on low air loss mattress LYING TO SITTING: with dependence on low air loss mattress SIT TO STAND: with dependence (total assist of 3 per PT) BED TO CHAIR TRANSFER: with dependence, cee lift requiring assistance of 3 for safety TOILET TRANSFER: not performed due to safety concerns with balance Mr. Chaparro tends to push towards left side when in sitting and requires maximal cues to attend to left side. Mr. Chaparro presents with impaired cognition with decreased problem solving, memory, insight, safety, attention to task, direction following, and increase in impulsivity. Mr. Chaparro does not exhibit any active movement with left UE. Poor sitting balance in w/c and mat/bed. Mr. Chaparro demonstrated slight progress towards bathing and UB dressing as well as with rolling to left in bed. However, he continues to be limited in these areas as well as remaining selfcare aspects, transfers, balance, endurance, left UE function, visual perception, cognition/safety. Mr. Chaparro would benefit from continuedOT services to work on maximizing functional independence. Facilitating Factors in Goal Achievement: Support of family or caregiver and Improved function Barriers to Goal Achievement: Pain, Strength limitations, ROM limitations, Balance deficits, Diminished endurance, Impaired skin integrity, Motor control deficits, Tone deficits, Decreased patient compliance, Decreased patient understanding, Cognitive deficits, Decreased safety awareness, Visual deficits and Behavioral issues Date Last Assessed: 11/16/2022 Patient needs assistance with the following activities: Activities of daily living, Going out in the community, Memory, Use of patient wine pasteurizer, Use of bathroom equipment, Vision, Sitting balance, Positioning, Rolling, Head control and Reaching Will patient require a prosthetic or orthotic device upon discharge: No CARE Score Mg: 6: Independent. [place] provides no assistance with tasks. A device may or may not have been used. 5: Set-up or clean-up assistance. Walnut sets up or cleans up, but does not assist with tasks. Walnut may have assisted prior to or following the activity. 4: Supervision or touching assistance. Walnut provides verbal cues or touching/steadying or contactguard assistance. Assistance may be provided throughout the activity or intermittently. 3: Partial/moderate assistance. Walnut does less than half the effort. Walnut lifts, holds, or supports trunk or limbs, but provides less than half the effort. 2: Substantial/maximal assistance. Walnut does more than half the effort. Walnut lifts or holds trunk or limbs, and provides more than half the effort. 1: Dependent. [place] does all of the effort, or the assistance of two or more helpers is required for the patient to complete the activity. -: Inconsistent or incomplete documentation Activity not attempted values: 7: Patient refused 9: Not applicable - Not attempted and the patient did not perform this activity prior to the current illness, exacerbation, or injury. 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: Goal Status on Admission Current Status Eating - CARE Score: 4 (10/29/22 1021 : Luke Robertson OT) Eating - CARE Score: 4 (11/16/22 154) Oral Hygiene - CARE Score: 3 (10/29/22 1021 : Luke Robertson OT) Oral Hygiene - CARE Score: 4 (11/16/221541) Toileting Hygiene LTG: Partial/moderate assistance Toileting Hygiene - CARE Score: 1 (10/29/22 1021: Luke Robertson OT) Toileting Hygiene - CARE Score: 1 (11/16/221541) Shower/Bathe Self LTG: Partial/moderate assistance Shower/Bathe Self - CARE Score: 1 (10/29/22 1021: Luke Robertson OT) Shower/Bathe Self - CARE Score: 2 (11/16/221541) Upper Body Dressing LTG: Partial/moderate assistance Upper Body Dressing - CARE Score: 1 (10/29/22 1021 : Luke Robertson OT) Upper Body Dressing - CARE Score: 2 (11/16/221541) Lower Body Dressing LTG: Partial/moderate assistance Lower Body Dressing - CARE Score: 1 (10/29/22 1021 : Luke Robertson OT) Lower Body Dressing - CARE Score: 1 (11/16/221541) Putting On/Taking Off Footwear LTG: Partial/moderate assistance Putting On/Taking Off Footwear - CARE Score: 1 (10/29/22 1021 : Luke Robertson OT) Putting On/Taking Off Footwear - CARE Score: 1 (11/16/221541) Roll Left and Right - CARE Score: 1 (10/29/22 1021 : Luke Robertson OT) Roll Left and Right - CARE Score: 1 (11/16/221541) Sit to Lying - CARE Score: 1 (10/29/22 1021 : Luke Robertson, OT) Sit to Lying - CARE Score: 1 (11/16/22 154) Lying to Sitting on Side of Bed - CARE Score: 1 (10/29/22 1021 : Luke Robertson, OT) Lying toSitting on Side of Bed - CARE Score: 1 (11/16/22 154) Sit to Stand - CARE Score: 88 (10/29/22 1021 : Luke Robertson, OT) Sit to Stand - CARE Score:1 (11/16/221541) Chair/Qcx-tn-[id number] Transfer LTG: Partial/moderate assistance Chair/Doa-ws-Kwkun Transfer - CARE Score: 88 (10/29/22 1021 : Luke Robertson, OT) Chair/Zns-sy-Kywwp Transfer - CARE Score: 1 (11/16/221541) Toilet Transfer LTG: Partial/moderate assistance Toilet Transfer - CARE Score: 88 (10/29/22 1021 : Luke Robertson, OT) Toilet Transfer - CARE Score: 88 (11/16/221541) Additional Goals & Status: N/A OT Short Term Goal 1: Focus: Toileting Hygiene Level of Assistance to Meet Short Term Goal: Physical assistance 50%-74% Expected Achievement Date: 11/23/2022 Goal Status: Not Achieved OT Short Term Goal 2: Focus: Shower/Bathe Level of Assistance to Meet Short Term Goal: Physical assistance 50%-74% Expected Achievement Date: 11/17/2022 Goal Status: Achieved OT Short Term Goal 3: Focus: Upper Body Dressing Level of Assistance to Meet Short Term Goal: Physical assistance 50%-74% Expected Achievement Date: 11/09/2022 Goal Status: Achieved OT Short Term Goal 4: Focus: Lower Body Dressing Level of Assistance to Meet Short Term Goal: Physical assistance 50%-74% Expected Achievement Date: 11/23/2022 Goal Status: Not Achieved OT Short Term Goal 5: Focus: Toilet Transfer Level of Assistance to Meet Short Term Goal: Physical assistance 50%-74% Expected Achievement Date: 11/23/2022 Goal Status: Not Achieved OT Short Term Goal 6: Focus: Shower/Bathe Level of Assistance to Meet Short Term Goal: Physical assistance 25%-49% Expected Achievement Date: 11/23/2022 Goal Status: Not Achieved OT Short Term Goal 7: Focus: Upper Body Dressing Level of Assistance to Meet Short Term Goal: Physical assistance 25%-49% Expected Achievement Date: 11/23/2022 Goal Status: Not Achieved Duration Expiration Date: 11/26/2022 EKATERINA FORMAN OT 11/16/2022 * Plan of Care - Mary Darby RN - 11/16/2022 1:17 PM CDT Problem: Infection Goal: Absence of infection and prevention of transmission during hospitalization Outcome: Progressing Problem: Knowledge Deficit Goal: Patient and/or family demonstrate readiness to learn Outcome: Progressing Goal: Patient and/or family verbalizes understanding of education, and/or performs desired skill Outcome: Progressing Problem: Discharge Planning Goal: Discharge to home or other facility with appropriate resources Outcome: Progressing Goal: client services assistant will develop a plan to decrease their burden and enhance comfort in role Outcome: Progressing Problem: Delirium Goal: Prevent and Manage Delirium Outcome: Progressing Problem: Fall Safety: [place] Precautions Goal: Free from fall injury Outcome: Progressing Problem: Fall Huddle Goal: Free from Fall Injury Outcome: Progressing Problem: Fall Prevention: Fatigue Bundle Goal: Patient will be free from Fall Injury Outcome: Progressing Problem: Fall Safety: [place] Precautions Goal: Free from fall injury Outcome: Progressing Problem: Fall Huddle Goal: Free from Fall Injury Outcome: Progressing Problem: Pain Goal: Patient's Pain/Discomfort is Manageable Outcome: Progressing Problem: Knowledge Deficit Goal: Patient/family/caregiver demonstrates understanding of disease process, treatment plan, medications, and discharge instructions Outcome: Progressing Problem: Potential for Compromised Skin Integrity Goal: Skin integrity is maintained or improved Outcome: Progressing Goal: Nutritional status is improving Outcome: Progressing Problem: Urinary Incontinence Goal: Perineal skin integrity is maintained or improved Outcome: Progressing Problem: Bowel Incontinence Goal: Perineal Skin Integrity is Maintained or Improved Outcome: Progressing Problem: Fall Prevention: Neglect/Hemiparesis Bundle Goal: Patient will be free from Fall Injury Outcome: Progressing * PT Weekly Progress Note - Irlanda Sher, PT - 11/16/2022 11:59 AM CDT PT Weekly Progress Note Patient Name: Esperanza Chaparro Patient Birthdate: 1955 PT CURRENT FUNCTIONAL STATUS: PT Current Functional Status: PT Current Functional Status: Mr. Chaparro's functional status as follows: POSITIONING: requires tilt in space w/c for trunk, head support, positioning. Half lap tray on leftwith gel heel protector to assist with left UE positioning. SITTING BALANCE: static sitting at edge of mat: max/total assist initially to control push left, retropulsion. With support and cues, can hold at times with mod assist for a few seconds but unable tomaintain prolonged time BED MOBILITY: Sit to/from supine with total assist of two for lift assist at trunk and LE's. Pt with painful leftgroin and back and resists movement at times. Increased education for pt to assist with right side vs pushing. Rolling to left with use of grab bar: min/mod assist to complete motion. To left with max/total assist for left side assist. Use of draw sheet for support due to left shoulder and groin pain with movement. TRANSFERS Sit to/from stand from edge of sweetie-mat with uses of grab bar on right, sheet support under hips. Total assist of 3 to obtain full upright stance. Max left knee block, pt maintains right knee in flexed position. Pushes left with max/total assist to obtain midline positioning. Stand pivot : not safe to attempt. Use of cee w/c to/from bed Trialed use of transfer board w/c to level mat: draw sheet assist, max/total of 3 for left leg block, trunk control due to pushes left and posterior. Car transfer: not safe to attempt GAIT Unsafe to attempt ambulation 10, 50',150'. Static stance from edge of mat as noted above: stood grossly 60 seconds with max/total assist of 3. Ambulates 10' on compliant surfaces : not safe to attempt Unsafe to retrieve object from floor STAIRS Ascends/descends curb : not safe to attempt Acscends/descends 4, 12 steps unsafe to attempt at this time WHEELCHAIR MOBILITY Pt requires tilt in space w/c for upright positioning support, trunk control, head support. Left half lap tray and use of gel heel protector to assist with maintaining positioning. Use of heel protectors at bilateral knee to control pressure on fibular heads. Dependent for up to 150' OUTCOME MEASURES: AGITATED BEHAVIOR SCALE 18 POSTURAL ASSESSMENT OF STROKE : PROGRESS: Mr. Chaparro is tolerating therapy fair due to pain in left shoulder, left hip/groin, at times sacral area. He responds to interventions and frequent redirection due to very distractible. Focusing on sitting balance, tolerance, various position changes. He does work hard and will benefit fromtherapy to maximize functional gains, improve overall tolerance to mobility. Factors in Goal Achievement: Facilitating Factors: None Barriers: Pain, Strength limitations, Balance deficits and Motor control deficits Date Last Assessed: 11/16/2022 CARE Score Mg: 6: Independent. [place] provides no assistance with tasks. A device may or may not have been used. 5: Set-up or clean-up assistance. [place] sets up or cleans up, but does not assist with tasks. [place] may have assisted prior to or following the activity. 4: Supervision or touching assistance. [place] provides verbal cues or touching/steadying or contactguard assistance. Assistance may be provided throughout the activity or intermittently. 3: Partial/moderate assistance. [place] does less than half the effort. [place]nut lifts, holds, or supports trunk or limbs, but provides less than half the effort. 2: Substantial/maximal assistance. [place] does more than half the effort. [place]nut lifts or holds trunk or limbs, and provides more than half the effort. 1: Dependent. [place] does all of the effort, or the assistance of two or more helpers is required for the patient to complete the activity. -: Inconsistent or incomplete documentation Activity not attempted values: 7: Patient refused 9: Not applicable - Not attempted and the patient did not perform this activity prior to the current illness, exacerbation, or injury. 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: Goal Status on Admission Current Status Car Transfer - CARE Score: 88 (10/29/22 2187 : Irlanda Sher, PT) Car Transfer - CARE Score: 88(11/16/22 1201) Walk 10 Feet LTG: Dependent (pt will ambulate 10ft with hemiaide and mod/max of two) Walk 10 Feet -CARE Score: 88 (10/29/221746 : Irlanda Sher PT) Walk 10 Feet - CARE Score: 88 (11/16/221200) Walk 50 Feet with Two Turns - CARE Score: 88 (10/29/221746 : Irlanda Sher PT) Walk 50 Feet with Two Turns - CARE Score: 88 (11/16/221200) Walk 150 Feet - CARE Score: 88 (10/29/221746 : Irlanda Sher PT) Walk 150 Feet - CARE Score: 88 (11/16/221200) Walking 10 Feet on Uneven Surfaces - CARE Score: 88 (10/29/221746 : Irlanda Sher PT) [id number] Feet on Uneven Surfaces - CARE Score: 88 (11/16/221200) 1 Step (Curb) - CARE Score: 88 (10/29/221746 : Irlanda Sher PT) 1 Step (Curb) - CARE Score: 88 (11/16/221200) 4 Steps - CARE Score: 88 (10/29/221746 : Irlanda Sher PT) 4 Steps - CARE Score: 88 () 12 Steps - CARE Score: 88 (10/29/221746 : Irlanda Sher PT) 12 Steps - CARE Score: 88 (11/16/221200) Picking Up Object - CARE Score: 88 (10/29/221746 : Irlanda Sher PT) Picking Up Object - CAREScore: 88 (11/16/221200) Wheel 50 Feet with Two Turns LTG: Partial/moderate assistance (pt propel w/c 60ft with right UE/LE and mod assist for guidance.) Wheel 50 Feet with Two Turns - CARE Score: 88 (10/29/221746 : Irlanda Sher PT) Wheel 50 Feet with Two Turns - CARE Score: 1 (11/16/221200) Wheel 150 Feet - CARE Score: 88 (10/29/221746 : Irlanda Sher PT) Wheel 150 Feet - CARE Score: 1 (11/16/22 1201) Additional Goals & Status: N/A PT 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 Lithographic 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 Goals Flowsheet Row Most Recent Value Other PT Residential Goals Other Goals - Residential Residential 1, Residential 2, Residential 3, Offset Lithographic 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 4 Filed on: 10/29/20221748 Other Residential Goal 1 w/c to/from level surface with transfer board and mod assist Filed on: 10/29/20221748 Other Residential Goal 1 Status Established Filed on: 10/29/20221748 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 Lithographic 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 Goal 2 sit to stand to hemiaide and mod assist of two Filed on: 10/29/20221748 Other Residential Goal 2 Status Established Filed on: 10/29/20221748 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 Lithographic 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 Goal 3 tolerate upright position in regular w/c vs tilt in space w/c when out of bed Filed on: 10/29/20221748 Other Residential Goal 3 Status Established Filed on: 10/29/20221748 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 Lithographic 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 Goal 4 sit to/from supine with mod assist. 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 Expected Achievement Date: 11/23/2022 Status: Not Achieved PT Short Term Goal 4: Details: Pt ambulate 5ft in parallel bars with mod/max assist of two. Expected Achievement Date: 11/23/2022 Goal Status: Not Achieved Duration Expiration Date: 11/24/2022 IRLANDA SHER, PT 11/16/2022 * OT Treatment Note - Ekaterina Forman, OT - 11/16/2022 9:46 AM CDT Occupational Therapy Treatment Patient Name: Esperanza Chaparro Patient Birthdate: 1955 Patient Subjective Report - my stomach feels like it has needles in it. Pain Assessment Pain Context: Therapy Assessment During Treatment (11/16/221003) Pain Assessment: NRS 0-10 (11/16/221003) Pain Score: 4 - Moderate Pain (11/16/221003) Pain Severity - NRS (Calculated): Moderate (11/16/221003) Orr Agitation Sedation Scale (RASS)/CAM-S: Restless (anxious, apprehensive, movements are not aggressive or vigorous)/vigilant (11/16/221003) Pain Type: Acute pain (11/16/221003) Pain Location: Buttocks, Arm (11/16/221003) Pain Orientation: Posterior, Left (buttocks, left arm) (11/16/221003) Pain Descriptors: Aching, Pressure, Burning (11/16/221003) Pain Onset: Ongoing (11/16/221003) Pain Frequency: Constant/continuous (11/16/221003) Aggravating Factors: Activity Duration, Positioning (11/16/221003) Pre-therapy pain intervention required: Patient expressed pain is tolerable/able to proceed, Other (Comment) (received pain medication prior to therapy) (11/16/221003) Pain Interventions Education Provided: Patient (11/16/221003) Non-Pharmacologic Pain Interventions: Distractions, Exercise/Activity, Position/Reposition, Rest (11/16/221003) Emotional/Spiritual Pain Interventions: Emotional Support (11/16/221003) Critical-Care Pain Observation Tool Orr Agitation Sedation Scale (RASS)/CAM-S: Restless (anxious, apprehensive, movements are not aggressive or vigorous)/vigilant (11/16/221003) ADL Training: ADL Training Narrative: EATING: with ORAL HYGIENE: with GROOMING: with dependence with shaving, Mr. Chaparro did not assist and required cues for positioning and attention to task. Increased time to complete due to frequent Mr. Chaparro requiring redirection to task or for positioning. TOILETING: with dependence with all aspects SHOWER/BATHING: with UPPER BODY DRESSING: with maximal assistance LOWER BODY DRESSING: with dependence with all aspects FOOTWEAR: with dependence with all aspects Transfer Training: Transfer Narrative: ROLL LEFT/RIGHT: with SIT TO LYING: with LYING TO SITTING: with SIT TO STAND: with BED TO CHAIR TRANSFER: with dependence, cee lift TOILET TRANSFER: with OT Therapeutic Activity: Therapeutic Exercise: Mr. Chaparro required encouragement to participate with PROM exercises with left UE. He reported pain with touch and with movement. Retrograde massage was performed gently to Mr. Chaparro's left hand and wrist/forearm with arm in a slightly elevated position. Mr. Chaparro was able to tolerate massage. Mr. Chaparro left UE placed in gravity eliminated position using deltoid aid. No active movement noted when placed in gravity eliminated. Therapist did not attempt vibration this date due toMgabriela Chaparro c/o pain with touch. When in sitting position in w/c, Mr. Chaparro tended to push towards leftside and left UE would slide off lap tray. Mr. Chaparro was unaware of arm being off w/c and therapist needed to reposition. Therapist explained to Mr. Chaparro the importance of paying attention to where his left arm is to help decrease pain in left arm. Endurance: Frequent requests for rest breaks. Mr. Chaparro frequently c/o pain especially in buttocks and left UE. Therapist provided repositioning with use of tilt in space w/c. Encouragement to participate with therapy and decrease focus on returning to bed. Cognition: Decrease attention to task, problem solving, insight, safety, impulsive. Decreased direction following. Visual Perceptual: Impaired spatial direction. Mr. Chaparro tends to push towards left side and requires cues to lean towards right. Mr. Chaparro requires cues to turn head towards left. Decreased attention to left. Special Test and Outcome Measures (completed during treatment): Agitated Behavior Scale (ABS) (ABS score 19) Treatment, Outcomes and Plan: OT Narrative:: Mr. Chaparro required frequent rest breaks due to frequent c/o pain. He would benefit from continued OT services to work on maximizing functional independence. OT Treatment Outcomes:: Safety device reapplied, Patient tolerated treatment poorly, Goals met for this session and Cues needed for safety OT Summary Plan of Care: Continue with current plan of care Pain Evaluation and Follow-up Response to Therapy Interventions: Other (comment) (no significant difference) (11/16/22 111) Pain Reassessment: 8 (11/16/221116) Nursing notified of patient's pain assessment: Primary Nurse, Other (comment) (nursing provided pain medication during session) (11/16/221116) Therapy Minutes Individual Concurrent Co-Treat Individual (OT) Time In : 945 Time Out: 1116 Total Time with Patient (Min): 91 min EKATERINA FORMAN, OT 11/16/2022 * PT Treatment Note - Irlanda Sher, PT - 11/16/2022 9:00 AM CDT PT Treatment Patient Name: Esperanza Chaparro Patient Birthdate: 1955 Patient Subjective Report - pt reports pain all over in left arm, groin, back. Pt reports being sleepy. Pt also reports dizziness with position changes but resolves with holding position. Pain Assessment Pain Context: Therapy Assessment Prior to Treatment (11/16/22899) Pain Assessment: NRS 0-10 (11/16/22899) Pain Score: 10 (11/16/22899) Pain Severity - NRS (Calculated): Severe (11/16/22899) Pain Location: Shoulder, Groin, Buttocks (11/16/22899) Pain Orientation: Left (11/16/22899) Pain Descriptors: Aching, Sore, Sharp (11/16/22899) Pain Onset: Ongoing (11/16/22899) Pain Frequency: Constant/continuous (11/16/22899) Aggravating Factors: Specified Activity/Other (Comment) (any movement of left UE and left leg. trunk movement) (11/16/22899) Pre-therapy pain intervention required: Patient expressed pain is tolerable/able to proceed, Nurse notified, Other (Comment) (had pain meds this am) (11/16/22899) Pain Interventions Education Provided: Patient (11/16/22944) Non-Pharmacologic Pain Interventions: Exercise/Activity, Distractions, Position/Reposition (11/16/22944) Emotional/Spiritual Pain Interventions: Emotional Support (11/16/22944) Vital Signs Pulse: 80 (11/16/22919) BP: (!) 89/60 (RN notified) (11/16/22943) MAP (mmHg): 69.67 (11/16/22943) BP Location: Left arm (11/16/22943) BP Method: Automatic (11/16/22943) Patient Position: Sitting (back in tilt in space w/c) (11/16/22943) Therapeutic Activities and Neuromuscular Re-education: Pt up in tilt in space w/c upon arrival. Reported feeling sleepy. Chair tilted more upright position. Pt reported feeling dizzy but resolved with held position. Use of cee lift to transfer bed to edge of barihub mat- with reclined pad support. Right UE on bolster to facilitate wt shift right/control push left. Left UE supported in sling. Pt with multiple complaints of discomfort: left arm with attempt at trunk control, his back and fear of falling with attempt at sitting up to 90 degrees. Pt sleepy but arousable. Actively kicks right leg into extensionwith cues- 10 reps with frequent cues to attend to task. PROM to left leg knee extension, ankle DF.Initial BP over on mat in left UE: 86/59, HR 80. With attempts at sitting more upright: BP 73/47, HR 69. Pt reclined and LE ROM. Then use of cee to transition to tilt in space chair and placed in semi tilted position: BP 89/60, HR 64. Use of half lap tray for left UE support, small towel roll on headrest for improved midline. PT Treatment Outcomes:: Safety device reapplied and Patient tolerated session fair PT Summary:: Mr. Chaparro tolerated the session fair due to frequent report of pain in various areas during any mobility. And hypotension with attempt to sit up, lower BP this date. RN notified about BP.Mr. Chaparro will continue to benefit from intensive therapy to maximize functional gains, improve overall tolerance to position changes and handling. PT Summary Plan of Care: Continue with current plan of care Pain Evaluation and Follow-up Response to Therapy Interventions: Other (comment) (tolerated the session but frequent report of pain in various locations. once positioned, stated improved to 7/10) (11/16/22944) Pain Reassessment: 7 (11/16/22944) Nursing notified of patient's pain assessment: Primary Nurse (11/16/22944) Therapy Minutes Individual Concurrent Co-Treat Individual (PT) Time In : 899 Time Out: 944 Total Time with Patient (Min): 45 min IRLANDA SHER, PT 11/16/2022 * OIL GAS AND PIPE TESTER Treatment Note - [facility] - 11/16/2022 8:15 AM CDT Speech Language Pathologist Treatment Patient Name: Esperanza Chaparro Patient Birthdate: 1955 Patient Subjective Report - I am going to have to go back more in the chair. Pain Assessment Pain Context: Therapy Assessment Prior to Treatment (11/16/22814) Pain Assessment: NRS 0-10 (11/16/22814) Pain Score: 7 - Severe Pain (11/16/22814) Pain Severity - NRS (Calculated): Severe (11/16/22814) Pain Location: Hip, Arm (11/16/22814) Pain Orientation: Left (11/16/22814) Pain Descriptors: Aching (11/16/22814) Pain Onset: Ongoing (11/16/22814) Pain Frequency: Constant/continuous (11/16/22814) Pre-therapy pain intervention required: Patient expressed pain is tolerable/able to proceed (11/16/22814) Pain Interventions Education Provided: Patient (11/16/22858) Non-Pharmacologic Pain Interventions: Distractions, Position/Reposition (11/16/22858) Emotional/Spiritual Pain Interventions: Emotional Support (11/16/22858) Cognitive Communication: Immediate memory, Short-term memory, Processing information of increased length or complexity, Semi-complex to complex attention, Task persistence, Self monitoring, Speed of processing, Verbal problem solving and Insight Dysphagia Treatment: Swallow strategy training, Oral care and Dysphagia diet training Recommended diet: IDDSI 6 - Soft & Bite-Sized / NDD3, Pills Whole in IDDSI 4 (Pureed / Extremely Thick) and IDDSI 0 - Thin Liquids / All Liquids Compensatory swallowing techniques: Small bites, Small sips, Eat slowly-control rate, Seated upright with all PO intake, Monitor oral spillage, Oral care post PO intake and Other (comment) (Avoid large bore straw) Level of supervision at meals recommended: 1 to 1 assistance due to cognitive or motor deficits Patient/Caregiver Training: Completed with patient, Therapy goals and treatment plan, Oral hygiene,Cognitive strategies, Cognitive Communication Disorder, Dysphagia, Swallow strategies and Current diet ST Narrative:: 1. Patient was seen for therapy in his room, reclined in tilt in space wheelchair; alert and cooperative with therapy tasks 2. Patient was able to recall one stroke risk factor: healthy eating. Additional stroke risk factors were reviewed. 3. Patient presented with food particles in the oral cavity; residue on lingual surface. Discussed trials for diet upgrade which had been completed during the past week. Patient was assisted with performing oral care using toothbrush. Discussed the importance of good oral care and swallowing strategies. 4. Patient was aware of discharge plan to SNF this week. Discussed the need for continued therapy services to further improve his functional abilities. 5. Patient participated in a problem-solving/reasoning task regarding good and bad reasons to use the call light. Patient was able to determine the correct responses when presented with various situations with 80% accuracy. 6. PT came in for next therapy session. Chair alarm was activated. ST Session Outcomes: Patient/family education progressing, Progressing toward STGs, Tolerated treatment well and Minimal cues during session ST Summary Plan of Care: Continue with current plan of care Pain Evaluation and Follow-up Response to Therapy Interventions: Other (comment) (No change) (11/16/22858) Pain Reassessment: 7 (11/16/22858) Nursing notified of patient's pain assessment: Primary Nurse (11/16/22858) Therapy Minutes Individual Concurrent Co-Treat Time In : 0815 Time Out: 0900 Breaks/Pauses (Min): 0 mins Total Time with Patient (Min): 45 [address] 11/16/2022 * Plan of Care - Xiomara Buck - 11/15/2022 7:45 PM CDT Problem: Fall Safety: [place] Precautions Goal: Free from fall injury Outcome: Progressing Flowsheets (Taken 11/13/20227 by Ryanne Champagne RN) Free from fall injury: Perform fall risk assessment and identifiers in place (as applicable) Frequent rounding/monitoring Lighting appropriate Put call light within reach and teach how to call for assistance, respond to call light immediately Use of bed/chair alarm Bed low, locked 2 side rails Encourage patient to wear glasses and hearing aids and to use walking aids when ambulating, non skid socks Safe mobility and activity (this could include chair safety) Assess for environmental or other risks Fall/safety education for patient/family/SO MAR review Problem: Fall Prevention: Fatigue Bundle Goal: Patient will be free from Fall Injury Outcome: Progressing * Plan of Care - Robert Joseph RN - 11/15/2022 12:51 PM CDT Problem: Infection Goal: Absence of infection and prevention of transmission during hospitalization Outcome: Progressing Problem: Delirium Goal: Prevent and Manage Delirium Outcome: Progressing Problem: Fall Safety: [place] Precautions Goal: Free from fall injury Outcome: Progressing Problem: Fall Prevention: Fatigue Bundle Goal: Patient will be free from Fall Injury Outcome: Progressing Problem: Fall Prevention: Neglect/Hemiparesis Bundle Goal: Patient will be free from Fall Injury Outcome: Progressing Problem: Pain Goal: Patient's Pain/Discomfort is Manageable Outcome: Progressing Problem: Potential for Compromised Skin Integrity Goal: Skin integrity is maintained or improved Outcome: Progressing Problem: Urinary Incontinence Goal: Perineal skin integrity is maintained or improved Outcome: Progressing Problem: Bowel Incontinence Goal: Perineal Skin Integrity is Maintained or Improved Outcome: Progressing * Plan of Care - Jovanny Cleveland RN - 11/14/2022 8:03 PM CDT Problem: Infection Goal: Absence of infection and prevention of transmission during hospitalization Outcome: Progressing Flowsheets (Taken 11/10/2022 033 by Cecily De La O RN) Absence of infection and prevention of transmission during hospitalization: Assess and monitor for signs and symptoms of infection and vital signs Monitor lab/diagnostic results Educate patient/family regarding signs and symptoms of infection Educate patient/family on proper hand washing and infection prevention techniques Problem: Knowledge Deficit Goal: Patient and/or family demonstrate readiness to learn Outcome: Progressing Goal: Patient and/or family verbalizes understanding of education, and/or performs desired skill Outcome: Progressing Problem: Fall Safety: [place] Precautions Goal: Free from fall injury Outcome: Progressing Problem: Fall Safety: [place] Precautions Goal: Free from fall injury Outcome: Progressing Problem: Pain Goal: Patient's Pain/Discomfort is Manageable Outcome: Progressing Problem: Knowledge Deficit Goal: Patient/family/caregiver demonstrates understanding of disease process, treatment plan, medications, and discharge instructions Outcome: Progressing Problem: Potential for Compromised Skin Integrity Goal: Skin integrity is maintained or improved Outcome: Progressing Goal: Nutritional status is improving Outcome: Progressing Problem: Urinary Incontinence Goal: Perineal skin integrity is maintained or improved Outcome: Progressing Problem: Bowel Incontinence Goal: Perineal Skin Integrity is Maintained or Improved Outcome: Progressing Problem: Fall Prevention: Neglect/Hemiparesis Bundle Goal: Patient will be free from Fall Injury Outcome: Progressing * Plan of Care - Robert Joseph RN - 11/14/2022 1:39 PM CDT Problem: Infection Goal: Absence of infection and prevention of transmission during hospitalization Outcome: Progressing Problem: Delirium Goal: Prevent and Manage Delirium Outcome: Progressing Problem: Fall Safety: [place] Precautions Goal: Free from fall injury Outcome: Progressing Problem: Fall Prevention: Fatigue Bundle Goal: Patient will be free from Fall Injury Outcome: Progressing Problem: Potential for Compromised Skin Integrity Goal: Skin integrity is maintained or improved Outcome: Progressing Problem: Urinary Incontinence Goal: Perineal skin integrity is maintained or improved Outcome: Progressing Problem: Bowel Incontinence Goal: Perineal Skin Integrity is Maintained or Improved Outcome: Progressing * OIL GAS AND PIPE TESTER Treatment Note - Noa Rey CCC-OIL GAS AND PIPE TESTER - 11/14/2022 8:15 AM CDT Speech Language Pathologist Treatment Patient Name: Esperanza Chaparro Patient Birthdate: 1955 Patient Subjective Report - My pain level is 10. Maybe 20. Nursing alerted Pain Assessment Pain Context: Other (comment) (End of Session Follow Up) (11/14/22854) Pain Assessment: NRS 0-10 (11/14/22821) Pain Score: 10 (11/14/22821) Pain Severity - NRS (Calculated): Severe (11/14/22821) Pain Location: Hip (11/14/22821) Pain Orientation: Left (11/14/22821) Pain Descriptors: Burning (11/14/22821) Pain Interventions Non-Pharmacologic Pain Interventions: Distractions, Position/Reposition (11/14/22854) Emotional/Spiritual Pain Interventions: Empathetic Discussion (11/14/22854) Pain Consults Initiated or Completed: Other (Comment) (nursing) (11/14/22821) Cognitive Communication: Immediate memory, Short-term memory, Processing information of increased length or complexity, Semi-complex to complex attention, Task persistence, Self monitoring, Speed of processing, Planning and sequencing, Organization, Verbal problem solving and Visual strategies Dysphagia Treatment: Swallow strategy training, Oral care and Dysphagia diet training Recommended diet: IDDSI 6 - Soft & Bite-Sized / NDD3, Pills Whole in IDDSI 4 (Pureed / Extremely Thick) and IDDSI 0 - Thin Liquids / All Liquids Compensatory swallowing techniques: Small bites, Small sips, Eat slowly-control rate, Seated upright with all PO intake, Monitor oral spillage, Oral care post PO intake and Other (comment) (Avoid large bore straw) Level of supervision at meals recommended: 1 to 1 assistance due to cognitive or motor deficits Patient/Caregiver Training: Completed with patient, Therapy goals and treatment plan, Oral hygiene,Cognitive strategies, Cognitive Communication Disorder, Dysphagia, Swallow strategies and Current diet Special Test and Outcome Measures: Agitated Behavior Scale (ABS) ST Narrative:: Mr. Chaparro upright in chair, awake and alert, reported severe pain. Nursing immediately noted, patient not attentive, complaint, or interested in therapy due to pain; stated medicine was not working. Nursing assisted therapist. Patient receptive however reported continued, severe pain throughout session and requested repositioning from therapist. Due to patient's level of pain, therapy progress was limited. Patient participated in the followin. CVA education, Signs/Symptoms of CVA: Patient participated in education of CVA. Pt participated in education about acronym, BEFAST. Pt educated on what each letter stood for. Patient able to immediately recall, however with a 10 minute delay, patient able to recall balance, but required maximal verbal and visual cues to recall other components to BEFAST. 2. Short Term Memory: Patient participated in verbal short term memory targets, recalled 5 out of 11 targets. With maximal verbal cues, this improved to 10 out of 11. 3. Functional Problem Solving/Reasoning: Patient able to suggest solutions to everyday problems he encounters in the hospital with 80% accuracy with minimal to moderate verbal prompts and cues. 4. ABS: Agitation Behavior Scale was completed. Pt scored 18, suspect pt's reported level of pain Pt remained seated upright in the wheel chair. Asking to get back into bed; ST alerted nursing. Nursing confirmed they would assist. Chair alarm in place and activated with phone and call light in reach. ST Session Outcomes: Patient/family education progressing, Progressing toward STGs, Minimal cues during session, Moderate cues during session, Maximal cues during session, Tolerated treatment fairly and Limited participation in session ST Summary Plan of Care: Continue with current plan of care Pain Evaluation and Follow-up Response to Therapy Interventions: Other (comment) (Minimal improvement) (11/14/22854) Pain Reassessment: 10 (11/14/22854) Nursing notified of patient's pain assessment: Primary Nurse (11/14/22854) Therapy Minutes Individual Concurrent Co-Treat Time In : 814 Time Out: 0900 Breaks/Pauses (Min): 0 mins Total Time with Patient (Min): 45 min Missed Minutes : 0 NOA REY CCC-OIL GAS AND PIPE TESTER 11/14/2022 * Plan of Care - Jessica Mccann RN - 11/14/2022 3:41 AM CDT Problem: Infection Goal: Absence of infection and prevention of transmission during hospitalization Outcome: Progressing Flowsheets (Taken 11/10/2022 0334 by Cecily De La O RN) Absence of infection and prevention of transmission during hospitalization: Assess and monitor for signs and symptoms of infection and vital signs Monitor lab/diagnostic results Educate patient/family regarding signs and symptoms of infection Educate patient/family on proper hand washing and infection prevention techniques Problem: Discharge Planning Goal: Discharge to home or other facility with appropriate resources Outcome: Progressing Flowsheets (Taken 10/31/2022 0454) Discharge to home or other facility with appropriate resources: Identify barriers to discharge with patient and caregiver Arrange for needed discharge resources and transportation as appropriate Identify discharge learning needs (meds, wound care, etc) Refer to Case Management Department for Coordinating discharge planning for if the patient needs post-hospital services based on physician order or complex needs related to functional status, cognitive ability or social support system Problem: Pain Goal: Patient's Pain/Discomfort is Manageable Outcome: Progressing Flowsheets (Taken 10/31/2022 0454) Patient's Pain/Discomfort is Manageable: Assess pain level Include patient/family/caregiver in decisions related to pain management Provide Emotional/Spiritual Support Offer non-pharmocological pain management interventions Pain Consult Administer medications as ordered Reassess patient's response and tolerance to discomfort * OT Treatment Note - Luke Robertson OT - 11/13/2022 1:00 PM CDT Occupational Therapy Treatment Patient Name: Esperanza Chaparro Patient Birthdate: 1955 Patient Subjective Report - My back is so painful today. I need to get back to bed soon! Pain Assessment Pain Context: Therapy Assessment Prior to Treatment (11/13/22 1305) Pain Assessment: NRS 0-10 (11/13/22 1305) Pain Score: 10 (11/13/22 1305) Pain Severity - NRS (Calculated): Severe (11/13/22 1305) Pain Location: Buttocks, Groin (11/13/22 1305) Aggravating Factors: Positioning (11/13/22 1305) ADL Training: ADL Training Narrative: EATING: ORAL HYGIENE: TOILETING: dependent, bed level (not safe to transfer to toilet) BATHING: pt washes face with cues for thoroughness UB DRESSING: LB DRESSING: dependent, bed level PUTTING ON/TAKING OFF FOOTWEAR: dependent, bed level ROLL LEFT AND RIGHT: mod assist for rolling to the right; pt needs two person assist for rolling tothe right SIT TO LYING: LYING TO SITTING: SIT TO STAND: BED TO CHAIR TRANSFER: dependent, two person assist with cee lift TOILET TRANSFER: NT b/c of safety concerns with balance OT Therapeutic Activity: Therapeutic Exercise: Pt c/o severe pain in back, hip and buttocks. Pt was tilted back in w/c and repositioned (dependent assist for positioning hips several times during session). Pt reports that this helps his pain. Pt participated in L UE PROM activities. He tolerated full PROM in elbow, wrist, supination/pronation and fingers with minimal complaints of discomfort. After application of icy hot patient was able to tolerate about 90 degrees of shoulder flexion (passively) and full horizontal abduction. Mr Chaparro participated in balloon volley using R UE; he needed occasional short rest breaks and he needed cues for visual scanning to left side of environment. Mr Chaparro used 1# weight for R UE strengthening ex, 20 reps each of bicep curls, shoulder press and punches. Treatment, Outcomes and Plan: OT Narrative:: Mr Chaparro tolerated session well. He tolerated some PROM to L UE after application of icy hot . He continues to be dependent with most ADLs b/c of left sided weakness, impaired balance and impaired visual perceptual skills. OT Treatment Outcomes:: Safety device reapplied, Patient tolerated treatment well, Patient is progressing toward STG(s) and Goals met for this session OT Summary Plan of Care: Continue with current plan of care Pain reassessment at end of session: Pt reports 10/10 pain in L hip and back. Nurse aware of pt's complaint. Therapy Minutes Individual Concurrent Co-Treat Individual (OT) Time In : 1300 Time Out: 1430 Total Time with Patient (Min): 90 min LUKE ROBERTSON OT 11/13/2022 * OIL GAS AND PIPE TESTER Treatment Note - [facility] - 11/13/2022 12:05 PM CDT Speech Language Pathologist Treatment Patient Name: Esperanza Chaparro Patient Birthdate: 1955 Patient Subjective Report - Pain Assessment Pain Context: Therapy Assessment During Treatment (11/13/22 1145) Pain Assessment: NRS 0-10 (11/13/22 1145) Pain Score: 8 (11/13/22 1145) Pain Severity - NRS (Calculated): Severe (11/13/22 114) Pain Location: Buttocks (11/13/22 114) Pain Descriptors: Burning (11/13/22 114) Pain Frequency: Constant/continuous (11/13/221144) Aggravating Factors: Positioning (11/13/22 114) Alleviating Factors: (positioning, pain medication) (11/13/22 114) Functional Impact: Self care/ADL's (11/13/22 114) Pain Interventions Education Provided: Patient (11/13/221144) Non-Pharmacologic Pain Interventions: Distractions, Position/Reposition (11/13/22 114) Emotional/Spiritual Pain Interventions: Emotional Support (11/13/22 114) Pain Consults Initiated or Completed: Rehab (11/13/221144) Cognitive Communication: Immediate memory, Short-term memory, Processing information of increased length or complexity, Semi-complex to complex attention, Task persistence, Self monitoring, Speed of processing, Planning and sequencing, Organization, Verbal problem solving and Visual strategies Dysphagia Treatment: Swallow strategy training, Oral care and Dysphagia diet training Recommended diet: IDDSI 6 - Soft & Bite-Sized / NDD3, Pills Whole in IDDSI 4 (Pureed / Extremely Thick) and IDDSI 0 - Thin Liquids / All Liquids Compensatory swallowing techniques: Small bites, Small sips, Eat slowly-control rate, Seated upright with all PO intake, Monitor oral spillage, Oral care post PO intake and Other (comment) (Avoid large bore straw) Level of supervision at meals recommended: 1 to 1 assistance due to cognitive or motor deficits Patient/Caregiver Training: Completed with patient, Therapy goals and treatment plan, Oral hygiene,Cognitive strategies, Cognitive Communication Disorder, Dysphagia, Swallow strategies and Current diet ST Narrative:: Mr. Chaparro was seen in his room for speech therapy this afternoon. He was awake, alert, seated upright in his wheelchair. Complaining of pain and discomfort throughout with frequent requests for repositioning and to get back into bed. Patient requested wheelchair to be reclined, for OIL GAS AND PIPE TESTER to use the lift and just suspend me from the chair to get me off my butt for a minute as well as to get back into bed. He completed the followin. Recalled basic activities completed throughout his day, but struggled to recall details. Re-education provided on basic goals of OT/PT/ST. 2. Swallowing: observed with IDDSI 7/0 trial tray with pizza, mashed potatoes and corn and steak fries. Patient stated 3 safe swallow strategies, but required moderate reminders throughout to use them. Consistent reminders to not talk with his mouth full. Patient unaware of food falling from left mouth corner or not being placed fully in his mouth. Attempted to use visual feedback via mirror, butattention was limited to this method. Stated he could not see the food in his cheek and that his cheeks were normally just puffy . Patient declines use of finger sweep to remove pocketed items. Offered digital pressure to left cheek to push pocketed items out of buccal area. Technique successful in clearing cheek, however, patient states I don't know why buy when you do that I get really dizzy and lightheaded . Patient instructed throughout to utilize a full lingual sweep, digital pressure to his left cheek and alternating liquid wash to clear oral cavity. He required moderate cues to do so when needed. Frequently indicated his mouth was clean when there was still significant residue in left cheek. Required moderate cues to delay next bite until oral cavity was clear. Had complained earlier about being fed in bed, however continuously asked to get back in bed throughout session. Mouth became so full while attempting to masticate pizza that patient requested to expell what was in his mouth. Denied that it was too full, just that it would take me too long to chew . No diet upgradethis date due to high distractibility and decreased use of safe swallow strategies. 3. Pt remained seated upright in chair as he has OT following speech therapy session. Asking to getback into bed and turned on his call light despite OIL GAS AND PIPE TESTER saying she was going to get his tech. Chair alarm in place and activated. ST Session Outcomes: Patient/family education progressing, Progressing toward STGs, Tolerated treatment well and Minimal cues during session ST Summary Plan of Care: Continue with current plan of care Pain Evaluation and Follow-up Response to Therapy Interventions: Other (comment) (no change) (11/13/22 1245) Pain Reassessment: 9 (11/13/22 124) Nursing notified of patient's pain assessment: Primary Nurse (11/13/22 124) Therapy Minutes Individual Concurrent Co-Treat Time In : 1205 Time Out: 1251 Total Time with Patient (Min): 46 min Missed Minutes : [address] 11/13/2022 * Team Conference - TRESA Grier - 11/13/2022 11:31 AM CDT Team Conference Note Date: 11/13/2022 Time: 10:13 AM CDT Patient Name: Esperanza Chaparro Date of : 1955 Sex: Male Room/Bed: 319/319-2 Admit Date/Time: 10/28/2022 9:05 PM Patient Active Problem List Diagnosis Date Noted Dysphagia 10/29/2022 Cerebrovascular accident 10/28/2022 Chronic obstructive pulmonary disease 10/12/2022 Coronary arteriosclerosis 10/12/2022 Primary hypertension 12/11/2021 Team Members Present: Attendees: Carolina Garibay MD, Chasity Payne, PharmD, Irlanda Sher, PT, Tania Pena, RN, Gretchen Alcaraz, OT, Other (comment) (Atif Montemayor SP) Film Examiner in Attendance: TRESA Grier Patient/Family Present: Patient Present: No Patient's Family/Caregiver Present: No Anticipated Discharge 11/20/2022 Discharge Plan: Discharge Destination Details : SNF/SNU Back-up Discharge Destination: SNF/SNU Potential Barriers to Return to Prior Living (Use comments to be specific): Caregiver limitations;Capacity for self care;Mobility challenge;Communication challenge;Architectural/environmental barrier(s);Home modification challenge;DME issue;Potential need for skills/non-skilled services;Potential need for 24 hour care;Financial resources;Insurance limitations;Psychosocial issues Clinical Barriers : Clinical needs exceed caregiver capacity;Instability Barriers:significant hemiparesis, increased pain, incontinent of bowel and bladder, feeder-soft bite sized, poor insight, no safety awareness, pain decreasing movement, max assist/dependent for self care, poor attention, cognitive deficits, DME Recommendations: Facility to order Services Recommended at Discharge: Snf Facility Copping Machine Operator Training: Completed F/U Appointments for Post Discharge: PCP Suicide Risk Assessment: No Concerns identified at this time Pain Management: Pain reported as adequately managed at this time. Medications: Current Facility-Administered Medications: acetaminophen (TYLENOL) tablet 650 mg, 650 mg, Oral, Q8H BERNARDO, Marion Perry MD, 650 mg at 11/13/22 0528 aspirin EC tablet 81 mg, 81 mg, Oral, Once a day, Marion Perry MD, 81 mg at 11/13/22 0852 bismuth subsalicylate (PEPTO BISMOL) 262 MG/15ML suspension 30 mL, 30 mL, Oral, Q6H PRN, Marion Perry MD, 30 mL at 11/05/22 2127 brimonidine (ALPHAGAN) 0.2 % ophthalmic solution 1 drop, 1 drop, Both Eyes, 3 times per day, Urban Perry MD, 1 drop at 11/13/22 0903 calcium carbonate (TUMS) chewable tablet 1,000 mg, 1,000 mg, Oral, Q2H PRN, Marion Perry MD, 1,000 mg at 11/01/22 1313 carvedilol (COREG) tablet 3.125 mg, 3.125 mg, Oral, 2 times per day, Raul Vo MD, 3.125 mg at11/13/22 0847 nicotine (NICODERM CQ) patch 21 mg, 21 mg, Transdermal, Once a day, 21 mg at 11/13/22 0904 AND Check Patch Placement, , Transdermal, 2 times per day, Marion Perry MD, Check Patch Placement at 11/13/22 0904 cholecalciferol (VITAMIN D3) capsule 50,000 Units, 50,000 Units, Oral, Weekly, Soto Meng MD, 50,000 Units at 11/13/22 0851 clopidogrel (PLAVIX) tablet 75 mg, 75 mg, Oral, Once a day, Marion Perry MD, 75 mg at 11/13/22 0851 cyclobenzaprine (FLEXERIL) tablet 5 mg, 5 mg, Oral, TID PRN, Raul Vo MD, 5 mg at 11/12/22 0523 dextrose (GLUTOSE) 40 % oral gel 15 g, 15 g, Oral, PRN, Marion Perry MD dextrose 50 % IV solution 12.5 g, 12.5 g, Intravenous, PRN OR dextrose 50 % IV solution 25 g, 25 g, Intravenous, PRN, Marion Perry MD Fluticasone-Salmeterol (AIRDUO RESPICLICK) 232-14 MCG/ACT inhaler 1 puff, 1 puff, Inhalation, RT BID, Marion Perry MD, 1 puff at 11/13/22 0903 gabapentin (NEURONTIN) capsule 200 mg, 200 mg, Oral, 3 times per day, Marion Perry MD, 200 mgat 11/13/22 0851 glipiZIDE (GLUCOTROL) tablet 5 mg, 5 mg, Oral, Once a day, Soto Meng MD, 5 mg at 11/13/22 0852 glucagon injection reconstituted solution 1 mg, 1 mg, Intramuscular, PRN, Marion Perry MD hemorrhoidal ointment, , Apply externally, TID PRN, Marion Perry MD, Given at 11/09/22 0104 heparin (porcine) injection 5,000 Units, 5,000 Units, Subcutaneous, Q8H BERNARDO, Marion Perry MD,5,000 Units at 11/13/22 0529 ibuprofen (MOTRIN) tablet 200 mg, 200 mg, Oral, Q6H PRN, Carolina Garibay MD ipratropium-albuterol (DUO-NEB) 0.5-2.5 mg/3 mL nebulizer solution 3 mL, 3 mL, Inhalation, Q 4 hours PRN, Marion Perry MD, 3 mL at 11/02/22 2344 ketoconazole (NIZORAL) 2 % cream, , Topical, Once a day, Shorty Menard DPM, Given at 11/13/22 0903 lidocaine (LIDOCARE) 4 % patch 3 patch, 3 patch, Transdermal, Once a day, Carolina Garibay MD, 3 patch at 11/13/22 0850 lidocaine (XYLOCAINE) 1 % injection 8 mL, 8 mL, Other, Once, Carolina Garibay MD losartan (COZAAR) tablet 25 mg, 25 mg, Oral, Once a day, Valencia Johnson MD, 25 mg at 11/13/22 0850 melatonin tablet 9 mg, 9 mg, Oral, Nightly, Marion Perry MD, 9 mg at 11/12/222041 muscle rub (ICY HOT) 10-15 % cream, , Topical, 2 times per day, Carolina Garibay MD, Given at 11/13/22 0849 oxyCODONE (ROXICODONE) immediate release tablet 5 mg, 5 mg, Oral, Q4H PRN, Carolina Garibay MD, 5 mgat 11/13/22 0857 polyethylene glycol (MIRALAX) packet 17 g, 17 g, Oral, BID PRN, Carolina Garibay MD, 17 g at 11/04/22 2159 rosuvastatin (CRESTOR) tablet 40 mg, 40 mg, Oral, Once a day, Marion Perry MD, 40 mg at 11/13/22 0849 simethicone (MYLICON) chewable tablet 80 mg, 80 mg, Oral, 4x Daily PRN, Marion Perry MD, 80 mg at 10/31/22 1818 tamsulosin (FLOMAX) 24 hr capsule 0.4 mg, 0.4 mg, Oral, After Breakfast, Marion Perry MD, 0.4mg at 11/13/22 0849 triamcinolone acetonide (KENALOG-40) injection 40 mg, 40 mg, Intra-articular, Once, Carolina Garibay MD Umeclidinium [place] (INCRUSE ELLIPTA) 62.5 MCG/ACT inhaler 62.5 mcg, 1 puff, Inhalation, RT Daily,Marion Perry MD, 62.5 mcg at 11/13/22 0903 Pharmacy: Latest Pharmacy IDT Documentation None Medications: reviewed Anti-infective Durations: ketoconazole shampoo Medication therapy for pain: reviewed Scheduled non-opoid(s): acetaminophen;gabapentin;lidocaine patch;steroid for pain management As needed non-opioid(s): ibuprofen As needed opioid(s): oxycodone IR Average MEDD: 0-49.99 Pain medication regimen plan: no change recommended Pain Management: 6 doses PRN oxycodone in past 72hr, lidocaine patch, no PRN ibuprofen, gabapentin,routine tylenol Sedation Impact: oxycodone, flexeril, gabapentin Glycemic Control: BG 125 on glipizide 5mg Medication Schedule Impact- Side Effects/ Behavior: nesina, coreg, flexeril, gabapentin, glipizide,losartan, statin, flomax Special Discharge Medications: glipizide Special Clinical Monitoring Protocols: dvt px - heparin Nursing Team Conference: Bladder Continent: Incontinent Bladder Devices: Adult brief Bladder Interventions: Post void residual monitoring Bladder: Describe level of assistance required and any barriers encountered in management: Incontinent, total assistance Bowel Continent: Continent Bowel Devices: Adult brief Bowel Interventions: Other (comment) Bowel: Describe level of assistance required and any barriers encountered in management: Assist with turning Pain: Patient verbalizes pain Pain - Functional Impact: Transfers;Turning Aggravating Factors Impacting Pain: Weakness Alleviating Factors Impacting Pain: Rest Pain Education Provided: Patient Non-Pharmacologic Pain Interventions: Relaxation;Rest Emotional/Spiritual Pain Interventions: Emotional Support;Empathetic Discussion Pain Consults Initiated or Completed: Other (Comment) Pain Pharmacologic Treatments: Medicated - see MAR Opiate Use Anticipated After Discharge: Possible Nutrition Intake: Oral Nutrition Level of Assistance: Moderate assistance Respiratory O2 Delivery System: None Respiratory Interventions: None Skin Intact: None Wound Rx: None Safety Status: Follows instructions Safety Interventions: Education;Performed rounding;Supervised activity Cognitive Orientation: Person;Place;Time;Date Quality of Sleep: Restful Approximate Hours Slept: 8-10 Patient-Family barriers to learning: None Is patient on dialysis?: No PT Weekly Progress Note PT Weekly Progress Note by Irlanda Sher PT at 11/12/2022 5:30 PM Author: Irlanda Sher PT Service: Therapy Author Type: Electric Repair Supervisor Filed: 11/12/2022 5:38 PM Date of Service: 11/12/2022 Continuous Improvement Consultant: Irlanda Sher PT (Electric Repair Supervisor) PT Weekly Progress Note Patient Name: Esperanza Chaparro Patient Birthdate: 1955 PT CURRENT FUNCTIONAL STATUS: PT Current Functional Status: PT Current Functional Status: Mr. Chaparro's functional status as follows: POSITIONING: requires tilt in space w/c for trunk, head support, positioning. Half lap tray on leftwith gel heel protector to assist with left UE positioning. SITTING BALANCE: static sitting at edge of mat: max/total assist initially to control push left, retropulsion. With support and cues, can hold at times with mod assist for a few seconds but unable tomaintain prolonged time BED MOBILITY: Sit to/from supine with total assist of two for lift assist at trunk and LE's. Pt with painful leftgroin and back and resists movement at times. Increased education for pt to assist with right side vs pushing. Rolling to left with use of grab bar: min/mod assist to complete motion. To left with max/total assist for left side assist. Use of draw sheet for support due to left shoulder and groin pain with movement. TRANSFERS Sit to/from stand from edge of sweetie-mat with uses of grab bar on right, sheet support under hips. Total assist of 3 to obtain full upright stance. Max left knee block, pt maintains right knee in flexed position. Pushes left with max/total assist to obtain midline positioning. Stand pivot : not safe to attempt. Use of cee w/c to/from bed Trialed use of transfer board w/c to level mat: draw sheet assist, max/total of 3 for left leg block, trunk control due to pushes left and posterior. Car transfer: not safe to attempt GAIT Unsafe to attempt ambulation 10, 50',150'. Static stance from edge of mat as noted above: stood grossly 60 seconds with max/total assist of 3. Ambulates 10' on compliant surfaces : not safe to attempt Unsafe to retrieve object from floor STAIRS Ascends/descends curb : not safe to attempt Acscends/descends 4, 12 steps unsafe to attempt at this time WHEELCHAIR MOBILITY Pt requires tilt in space w/c for upright positioning support, trunk control, head support. Left half lap tray and use of gel heel protector to assist with maintaining positioning. Use of heel protectors at bilateral knee to control pressure on fibular heads. Dependent for up to 150' OUTCOME MEASURES: AGITATED BEHAVIOR SCALE 18 POSTURAL ASSESSMENT OF STROKE : PROGRESS: Mr. Chaparro is tolerating therapy fair due to pain in left shoulder, left hip/groin, at times sacral area. He responds to interventions and frequent redirection due to very distractible. Focusing on sitting balance, tolerance, various position changes. He does work hard and will benefit fromtherapy to maximize functional gains, improve overall tolerance to mobility. Factors in Goal Achievement: Facilitating Factors: Patient understanding and knowledge Barriers: Strength limitations, Pain, Motor control deficits, Balance deficits and Decreased patient understanding Date Last Assessed: 11/12/2022 CARE Score Mg: 6: Independent. [place]nut provides no assistance with tasks. A device may or may not have been used. 5: Set-up or clean-up assistance. Walnut sets up or cleans up, but does not assist with tasks. Walnut may have assisted prior to or following the activity. 4: Supervision or touching assistance. Walnut provides verbal cues or touching/steadying or contactguard assistance. Assistance may be provided throughout the activity or intermittently. 3: Partial/moderate assistance. Walnut does less than half the effort. Walnut lifts, holds, or supports trunk or limbs, but provides less than half the effort. 2: Substantial/maximal assistance. Walnut does more than half the effort. Walnut lifts or holds trunk or limbs, and provides more than half the effort. 1: Dependent. Walnut does all of the effort, or the assistance of two or more helpers is required for the patient to complete the activity. -: Inconsistent or incomplete documentation Activity not attempted values: 7: Patient refused 9: Not applicable - Not attempted and the patient did not perform this activity prior to the current illness, exacerbation, or injury. 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: Goal Status on Admission Current Status Car Transfer - CARE Score: 88 (10/29/221746 : Irlanda Sher, PT) Walk 10 Feet LTG: Dependent (pt will ambulate 10ft with hemiaide and mod/max of two) Walk 10 Feet -CARE Score: 88 (10/29/221746 : Irlanda Sher, PT) Walk 50 Feet with Two Turns - CARE Score: 88 (10/29/221746 : Irlanda Sher, PT) Walk 150 Feet - CARE Score: 88 (10/29/221746 : Irlanda Sher, PT) Walking 10 Feet on Uneven Surfaces - CARE Score: 88 (10/29/221746 : Irlanda Sher, PT) 1 Step (Curb) - CARE Score: 88 (10/29/221746 : Irlanda Sher, PT) 4 Steps - CARE Score: 88 (10/29/221746 : Irlanda Sher PT) 12 Steps - CARE Score: 88 (10/29/221746 : Irlanda Sher PT) Picking Up Object - CARE Score: 88 (10/29/221746 : Irlanda Sher PT) Wheel 50 Feet with Two Turns LTG: Partial/moderate assistance (pt propel w/c 60ft with right UE/LE and mod assist for guidance.) Wheel 50 Feet with Two Turns - CARE Score: 88 (10/29/221746 : Irlanda Sher PT) Wheel 150 Feet - CARE Score: 88 (10/29/221746 : Irlanda Sher PT) Additional Goals & Status: N/A PT Other Residential Goals Flowsheet Row Most Recent Value Other PT Residential Goals Other Goals - Residential Offset Lithographic 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 1, Residential 2, Residential 3, Residential 4 Filed on: 10/29/20221748 Other Residential Goal 1 w/c to/from level surface with transfer board and mod assist Filed on: 10/29/20221748 Other Residential Goal 1 Status Established Filed on: 10/29/20221748 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 Lithographic 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 Goal 2 sit to stand to hemiaide and mod assist of two Filed on: 10/29/20221748 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 Lithographic 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 Goal 2 Status Established Filed on: 10/29/20221748 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 Filed on: 10/29/20221748 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 Lithographic 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 Goal 4 Status Established Filed on: 10/29/20221748 PT Short Term Goal 1: Details: Sit to/from supine with max assist Expected Achievement Date: 11/19/2022 Goal Status: Not Achieved PT Short Term Goal 2: Details: W/c to/from level surface with use of transfer board and max assist Expected Achievement Date: 11/19/2022 Status: Not Achieved PT Short Term Goal 3: Details: Sit to cable tv installer parallel bars with max assist. Expected Achievement Date: 11/19/2022 Status: Not Achieved PT Short Term Goal 4: Details: Pt ambulate 5ft in parallel bars with mod/max assist of two. Expected Achievement Date: 11/19/2022 Goal Status: Not Achieved Extend Therapy Duration (# of Days): 6 Duration Expiration Date: 11/24/2022 IRLANDA SHER, PT 11/12/2022 OT Weekly Progress Note OT Weekly Progress Note by Luke Robertson OT at 11/12/2022 12:43 PM Author: Luke Robertson OT Service: -- Author Type: Occupational Therapist Filed: 11/12/2022 12:47 PM Date of Service: 11/12/2022 Continuous Improvement Consultant: Luke Robertson OT (Occupational Therapist) Occupational Therapy Weekly Progress Note Patient Name: Esperanza Chaparro Patient Birthdate: 1955 OT Current Functional Status: Mr Chaparro'javier current functional status is as follows: EATING: supervision and cues for visual scanning to the left and for clearing left side of mouth (some spilling on left side) ORAL HYGIENE: supervision, cues for thoroughness TOILETING: dependent; pt uses bedpan and urinal, two person assist BATHING: max assist for sponge bathing bed level UB DRESSING: max assist LB DRESSING: dependent, bed level PUTTING ON/TAKING OFF FOOTWEAR: dependent, bed level ROLL LEFT AND RIGHT: dependent for rolling to the right; mod assist for rolling to the left SIT TO LYING: dependent LYING TO SITTING: dependent SIT TO STAND: dependent BED TO CHAIR TRANSFER: dependent, cee lift 2-3 person assist TOILET TRANSFER: NT b/c of safety concerns with balance Facilitating Factors in Goal Achievement: Patient compliance, Patient motivation, Use of compensatory strategies and Support of family or caregiver Barriers to Goal Achievement: Pain, Motor control deficits, Balance deficits, Strength limitations,ROM limitations, Diminished endurance and Visual deficits Patient needs assistance with the following activities: Activities of daily living, Going out in the community, Use of bathroom equipment, Positioning, Rolling and Sitting balance CARE Score Mg: 6: Independent. [place] provides no assistance with tasks. A device may or may not have been used. 5: Set-up or clean-up assistance. [place] sets up or cleans up, but does not assist with tasks. Wal[place] may have assisted prior to or following the activity. 4: Supervision or touching assistance. [place] provides verbal cues or touching/steadying or contactguard assistance. Assistance may be provided throughout the activity or intermittently. 3: Partial/moderate assistance. Walnut does less than half the effort. Walnut lifts, holds, or supports trunk or limbs, but provides less than half the effort. 2: Substantial/maximal assistance. [place] does more than half the effort. Walnut lifts or holds trunk or limbs, and provides more than half the effort. 1: Dependent. [place] does all of the effort, or the assistance of two or more helpers is required for the patient to complete the activity. -: Inconsistent or incomplete documentation Activity not attempted values: 7: Patient refused 9: Not applicable - Not attempted and the patient did not perform this activity prior to the current illness, exacerbation, or injury. 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: Goal Status on Admission Current Status Eating - CARE Score: 4 (10/29/22 1021 : Luke oRbertson OT) Eating - CARE Score: 4 (11/12/22 124) Oral Hygiene - CARE Score: 3 (10/29/22 1021 : Luke Robertson OT) Oral Hygiene - CARE Score: 4 (11/12/22 124) Toileting Hygiene LTG: Partial/moderate assistance Toileting Hygiene - CARE Score: 1 (10/29/22 1021: Luke Robertson OT) Toileting Hygiene - CARE Score: 1 (11/12/22 124) Shower/Bathe Self LTG: Partial/moderate assistance Shower/Bathe Self - CARE Score: 1 (10/29/22 1021: Luke Robertson OT) Shower/Bathe Self - CARE Score: 2 (11/12/22 124) Upper Body Dressing LTG: Partial/moderate assistance Upper Body Dressing - CARE Score: 1 (10/29/22 1021 : Luke Robertson OT) Upper Body Dressing - CARE Score: 2 (11/12/22 124) Lower Body Dressing LTG: Partial/moderate assistance Lower Body Dressing - CARE Score: 1 (10/29/22 1021 : Luke A. Robertson, OT) Lower Body Dressing - CARE Score: 1 (11/12/22 1242) Putting On/Taking Off Footwear LTG: Partial/moderate assistance Putting On/Taking Off Footwear - CARE Score: 1 (10/29/22 1021 : Luke Robertson, JEZ) Putting On/Taking Off Footwear - CARE Score: 1 (11/12/22 1242) Roll Left and Right - CARE Score: 1 (10/29/22 1021 : Luke Robertson OT) Roll Left and Right - CARE Score: 1 (11/12/22 1242) Sit to Lying - CARE Score: 1 (10/29/22 1021 : Luke Robertson OT) Sit to Lying - CARE Score: 1 (11/12/22 124) Lying to Sitting on Side of Bed - CARE Score: 1 (10/29/22 1021 : Luke Robertson OT) Lying toSitting on Side of Bed - CARE Score: 1 (11/12/22 1242) Sit to Stand - CARE Score: 88 (10/29/22 1021 : Luke Robertson OT) Sit to Stand - CARE Score:1 (11/12/22 1242) Chair/Edu-sq-Pvsnh Transfer LTG: Partial/moderate assistance Chair/Guo-ly-Kjvvu Transfer - CARE Score: 88 (10/29/22 1021 : Luke Robertson OT) Chair/Oar-fa-Yzhef Transfer - CARE Score: 1 (11/12/22 1242) Toilet Transfer LTG: Partial/moderate assistance Toilet Transfer - CARE Score: 88 (10/29/22 1021 : Luke Robertson OT) Toilet Transfer - CARE Score: 88 (11/12/22 1242) Additional Goals & Status: N/A OT Short Term Goal 1: Focus: Toileting Hygiene Level of Assistance to Meet Short Term Goal: Physical assistance 50%-74% Expected Achievement Date: 11/19/2022 Goal Status: Not Achieved OT Short Term Goal 2: Focus: Shower/Bathe Level of Assistance to Meet Short Term Goal: Physical assistance 50%-74% Expected Achievement Date: 11/17/2022 Goal Status: Achieved OT Short Term Goal 3: Focus: Upper Body Dressing Level of Assistance to Meet Short Term Goal: Physical assistance 50%-74% Expected Achievement Date: 11/09/2022 Goal Status: Achieved OT Short Term Goal 4: Focus: Lower Body Dressing Level of Assistance to Meet Short Term Goal: Physical assistance 50%-74% Expected Achievement Date: 11/19/2022 Goal Status: Not Achieved OT Short Term Goal 5: Focus: Toilet Transfer Level of Assistance to Meet Short Term Goal: Physical assistance 50%-74% Expected Achievement Date: 11/11/2022 Goal Status: Not Achieved OT Short Term Goal 6: Focus: Shower/Bathe Level of Assistance to Meet Short Term Goal: Physical assistance 25%-49% Expected Achievement Date: 11/20/2022 Goal Status: Not Achieved OT Short Term Goal 7: Focus: Upper Body Dressing Level of Assistance to Meet Short Term Goal: Physical assistance 25%-49% Expected Achievement Date: 11/20/2022 Goal Status: Not Achieved LUKE ROBERTSON OT 11/12/2022 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 Chaparro is a 67 year old male referred to speech therapy for evaluation and treatment following recent hospitalization with a diagnosis of CVA. Patient presented to the hospital initially on 10/12/22 due to a peritonsillar abscess, reporting dysphagia symptoms with liquids and solids. While there, he developed left sided weakness with confirmation of CVA. He was living with his sister prior to admission and was independent with ADLs and IADLs and driving. 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 Current functional status is as follows: PROGRESS 11/02/22: Evaluation was completed on 10/29/22. All goals remain appropriate to continue at this time due to limited number of sessions thus far. Patient is distracted by pain and discomfort when up in wheelchair during therapy sessions. He requires frequent encouragement for task persistence. Patient requires assistance with tray set-up and at least some degree of supervision/assistance with feeding due to left visual impairment and left side weakness. PROGRESS 11/06/22: Patient is making good progress towards his speech therapy goals. He has participated in discussion this week regarding stroke risk factors and prevention. He has shown improved ability to solve basic problem-solving situations. He is using compensatory strategies with minimal cueing to locate information on the left side for visual matching tasks. Patient is managing current diet well and would benefit from further assessment to determine safety of upgraded solid textures at this time. PROGRESS 11/12/22: Mr. Waldrop is seen for 45 minutes of speech therapy daily with focus on dysphagia management, functional communication and cognitive retraining. He is making progress in all goaled areas. Trials of regular consistency food items have been completed this week. Patient is recalling safe swallow strategies and using them with minimal-moderate assistance depending on comfort and pain level. Patient's attention during meals and structured tasks is improving, however, when structure isnot imposed it is very difficult for him to focus due to both internal and external events. Improvements noted in recall of daily events and therapy information. Problem solving and reasoning continue to require minimal assistance. He will need 24 hour assistance with ADLs and IADLS at discharge. SWALLOWING: Current diet: SOFT & BITE SIZED with THIN LIQUIDS (IDDSI 6/0) Mild spillage and oral residue noted on the left side. COMMUNICATION: COMPREHENSION- SUPERVISION. Patient is able to comprehend information regarding basic needs over 90% of the time. Increased difficulty noted with comprehension of complex or abstract information. EXPRESSION- SUPERVISION. Patient is able to express information regarding basic needs over 90% of the time. Increased difficulty noted with comprehension of complex or abstract information. Patient presents with mild dysarthria but mostly intelligible speech. COGNITION: PROBLEM-SOLVING- Improved to MINIMAL ASSISTANCE. Patient is able to solve routine problems at least75% of the time. Improvement noted in ability to provide appropriate responses for basic verbal problem-solving situations. Increased assistance required for multi-step sequencing and mathematical reasoning tasks. MEMORY: improved to MINIMAL ASSISTANCE. Patient is able to recognize and remember people, routines,and requests 50-74% of the time. SOCIAL INTERACTION: MINIMAL ASSISTANCE. Patient presents with frequent fatigue and pain which interferes with performance in therapy. He requires frequent encouragement to continue with participationin therapy tasks. RECOMMENDATION: Mr. Chaparro will benefit from continued speech therapy services to address the following plan of care: patient and family education; use of compensatory strategies; interventions for improved strength and movement of left facial musculature; interventions for improved swallowing function to manage least restrictive solid and liquid consistencies; and cognitive retraining for functional reasoning and memory skills to increase safety and independence at discharge. The Patient: [ ]is able to state 2 risk factors without VCs prior to discharge [X ]requires cues to recall 2 stroke risk factors [ ] Is unable to state stroke risk factors due to communication or cognitive deficits Facilitating Factors in Goal Achievement: Patient compliance, Improvement in cognitive skills, Progress to date, Increased visual acuity/attention and Support of other(s) Barriers to Goal Achievement: Pain, Other (comment) and Visual inattention/neglect (cognition) Date Last Assessed: 11/06/2022 Residential Goals: Goal Status on Evaluation Current Progress Towards Goal Level of Assistance to Meet Problem Solving: Min assist (10-24%) Problem Solving Details: Improve functional problem-solving skills to minimal assistance to solve routine problems at least 75% of the time. Problem Solving Expected Achievement Date: 11/25/22 ONGOING Level of Assistance to Meet Memory: Min assist (10-24%) Memory Details: Improve functional memory skills to minimal assistance to recognize and remember people, routines, and requests at least 75% of the time. Memory Expected Achievement Date: 11/25/22 ONGOING Swallowing Details: Safely manage regular texture solids and thin liquids with no clinical signs ofdysphagia. Swallowing Expected Achievement Date: 11/25/22 ONGOING OIL GAS AND PIPE TESTER Short Term Goals: Problem Solving: Details: Complete functional problem-solving/reasoning tasks with 70% accuracy. REVISED 11/06/22 : Complete functional problem-solving/reasoning tasks with 80% accuracy. Expected Achievement Date: 11/20/2022 Goal Status: Not Achieved Memory: Details: Complete short term memory tasks with 70% accuracy. REVISED 11/06/22: Complete short term memory tasks with 80% accuracy. Expected Achievement Date: 11/20/2022 Goal Status: Not Achieved Additional Cognition: Details: Participate in further assessment of cognitive skills using a standardized measure. Expected Achievement Date: 11/20/2022 Goal Status: Not Achieved Swallowing: Details: Safely manage current diet and thin liquids using compensatory strategies with no clinicalsigns of dysphagia. Expected Achievement Date: 11/09/2022 Goal Status: Achieved Other STG 1: Focus: Swallowing Details: Participate in NMES (PENS) to stimulate left facial musculature. Expected Achievement Date: 11/20/2022 Goal Status: Not Achieved Other STG 2: Focus: Additional Cognition Level of Assistance to Meet Other STG 2: Independent Details: Recall 2 factors for stroke prevention independently. Expected Achievement Date: 11/20/2022 Goal Status: Partially Achieved Other STG 3: Focus: Additional Cognition Level of Assistance to Meet Other STG 3: Min assist (10-24%) Details: Complete tasks to target left attention with minimal assistance. Expected Achievement Date: 11/20/2022 Goal Status: Partially Achieved Other STG 4: Focus: Swallowing Details: Participate in trials to assess for safety of diet upgrade. Expected Achievement Date: 11/20/2022 Goal Status: Partially Achieved ATIF MONTEMAYOR ST 11/12/2022 Respiratory Team Conference: Nutrition Team Conference: Dietary Orders (From admission, onward) Start Ordered 10/29/22 1700 Nutritional supplement Oral 3 times daily with meals Comments: Send vanilla ensure high protein TID End/Expires: Until Specified Question Answer Comment Administration Route: Oral Place order in third constitution party system. Done 10/29/22 1346 10/28/222111 Adult Diet Regular; 6 Soft & Bite-Sized (NDD III); 0 Thin (All Liquids) Diet effective now End/Expires: Until Specified References: IDDSI Website Question Answer Comment Diet Type: Regular Diet Texture: 6 Soft & Bite-Sized (NDD III) Liquid Consistency: 0 Thin (All Liquids) Place order in third constitution party system. Done 10/28/222110 Height: 5' 11 (180.3 cm) Admit Weight: 228 lb 4 oz (103.5 kg) Current Weight: 225 lb (102.1 kg) Body mass index is 31.38 kg/m??. Calorie Count: Plan of Care - Nutrition Care Plans 1 Author: Luke Elizalde RD Service: -- Author Type: Registered Dietitian Filed: 11/11/2022 12:23 PM Date of Service: 11/11/2022 12:23 PM Status: Signed Continuous Improvement Consultant: Luke Elizalde RD (Registered Dietitian) Problem: Inadequate Oral Intake Description: Oral food/beverage intake that is less than established reference standards or recommendations based on physiological needs. Related to: Decreased ability to consume sufficient energy, e.g., increased nutrition needs due to prolonged catabolic illness As evidenced by: estimated protein needs of 90-95 g/day. Goal: Improve Nutritional Status Outcome: Progressing Flowsheets (Taken 10/29/2022 3415) Meals and Snacks: (soft and bite sized (6) diet) General healthful diet Medical Food Supplement Therapy: (vanilla Ensure high protein TID) Commercial beverage/Oral nutrition supplement Wound: Wound Rx: None Cosigned by Carolina Garibay MD at 11/13/2022 2:06 PM CDT Associated attestation - Carolina Garibay MD - 11/13/2022 3:06 PM EDT A team conference was held on 11/13/2022 and included members of the multidisciplinary team identified in the attendance section of this note. Issues related to Mr. Chaparro's status include; Patient Active Problem List Diagnosis Cerebrovascular accident Chronic obstructive pulmonary disease Coronary arteriosclerosis Primary hypertension Dysphagia Mr. Sainis progress toward rehabilitation goals, impediments to attaining these goals, and associated revisions to the treatment plans and goals were discussed by the team. Details of this multidisciplinary process are included below. Issues of particular significance at this time regarding Mr. Mann progress towards rehabilitation goals and treatment plan include: Discussed about functional gains , discharge planning ,DME , follow up therapies and current medical condition during team conference . As discussed during this team conference, I concur with the decisions set forth by the members of the multidisciplinary team. Mr. Chaparro continues to require frequent physician visits and 24 hours per day acute rehabilitation nursing care in order to meet medical needs and progress toward the achievement of the rehabilitation goals. CAROLINA GARIBAY MD 11/13/2022 2:06 PM CDT * PT Treatment Note - Irlanda Sher, PT - 11/13/2022 10:32 AM CDT PT Treatment Patient Name: Esperanza Chaparro Patient Birthdate: 1955 Patient Subjective Report - pt reports feeling ok but hurting in arm, groin, Pain Assessment Pain Context: Therapy Assessment Prior to Treatment (11/13/221031) Pain Assessment: NRS 0-10 (11/13/221031) Pain Score: 8 (11/13/221031) Pain Severity - NRS (Calculated): Severe (11/13/221031) Pain Location: Groin, Shoulder, Back (11/13/221031) Pain Descriptors: Aching, Burning, Sore (11/13/221031) Pain Frequency: Constant/continuous (11/13/221031) Aggravating Factors: Activity Duration (11/13/221031) Pre-therapy pain intervention required: Patient expressed pain is tolerable/able to proceed (11/13/221031) Pain Interventions Education Provided: Patient (11/13/221116) Non-Pharmacologic Pain Interventions: Exercise/Activity, Position/Reposition (11/13/221116) Emotional/Spiritual Pain Interventions: Emotional Support, Empathetic Discussion (11/13/221116) Therapeutic Activities and Neuromuscular Re-education: Pt up in chair upon arrival. Sling applied to left UE for support Pt positioned along rail on wall on pt's right side. Attempted sit to stand with use of right grab bar, max of 3 to attempt to obtain full upright stance. With attempt at stance, pt reports increasedpain in left groin, fear of falling, resists movement up to stance. Repositioned into chair, max for control of trunk with left/anterior lean. Attempted 2 more times but not able to obtain upright position. Use of sit to stand employment trainer: 40lb lift assist. Attempted x2 with pt resisting motion to come to stance due to fear of falling. 3rd attempt able to obtain 75% of full upright stance and held for 5-10 seconds. Cues for midline, upright posture, orientation to midline/wt shift right. Pt continues to resist due to feeling of falling. Educated on balance, midline orientation deficits s/p CVA. Pt repositioned into tilt in space w/c, half lap tray on left and pillow for UE support. Headrest further adjusted for comfort and positioning. PT Treatment Outcomes:: Patient tolerated session fair, Patient is progressing toward STG and Safety device reapplied PT Summary:: Mr. Chaparro tolerated the session fair due to pain, decreased tolerance to handling. He responds to instruction, education deficits and goals with each activity but difficulty tolerating movement due to pain and fear of falling. He will continue to benefit from intensive therapy to maximize functional gains. PT Summary Plan of Care: Continue with current plan of care Pain Evaluation and Follow-up Response to Therapy Interventions: Other (comment) (tolerated session and reported felt a little better positioned in chair. still reported 12/17) (11/13/22 1117) Pain Reassessment: 8 (11/13/22 1117) Therapy Minutes Individual Concurrent Co-Treat Individual (PT) Time In : 1032 Time Out: 1118 Total Time with Patient (Min): 46 min IRLANDA SHER, PT 11/13/2022 * Non-treatment Therapy Note - Gretchen Alcaraz OT - 11/13/2022 8:32 AM CDT Prior to team conference, the Primary Therapist Luke Robertson OT and I have communicated regarding current patient status, progress towards goals, and modifications to plan of care, as appropriate. Gretchen Alcaraz MOTR/L CBIS * Plan of Care - Ryanne Champagne RN - 11/13/2022 3:19 AM CDT Problem: Fall Safety: [place] Precautions Goal: Free from fall injury Outcome: Progressing Flowsheets (Taken 11/13/2022 0317) Free from fall injury: Perform fall risk assessment and identifiers in place (as applicable) Frequent rounding/monitoring Lighting appropriate Put call light within reach and teach how to call for assistance, respond to call light immediately Use of bed/chair alarm Bed low, locked 2 side rails Encourage patient to wear glasses and hearing aids and to use walking aids when ambulating, non skid socks Safe mobility and activity (this could include chair safety) Assess for environmental or other risks Fall/safety education for patient/family/SO MAR review * PT Weekly Progress Note - Irlanda Sher, PT - 11/12/2022 5:30 PM CDT PT Weekly Progress Note Patient Name: Esperanza Chaparro Patient Birthdate: 1955 PT CURRENT FUNCTIONAL STATUS: PT Current Functional Status: PT Current Functional Status: Mr. Chaparro's functional status as follows: POSITIONING: requires tilt in space w/c for trunk, head support, positioning. Half lap tray on leftwith gel heel protector to assist with left UE positioning. SITTING BALANCE: static sitting at edge of mat: max/total assist initially to control push left, retropulsion. With support and cues, can hold at times with mod assist for a few seconds but unable tomaintain prolonged time BED MOBILITY: Sit to/from supine with total assist of two for lift assist at trunk and LE's. Pt with painful leftgroin and back and resists movement at times. Increased education for pt to assist with right side vs pushing. Rolling to left with use of grab bar: min/mod assist to complete motion. To left with max/total assist for left side assist. Use of draw sheet for support due to left shoulder and groin pain with movement. TRANSFERS Sit to/from stand from edge of sweetie-mat with uses of grab bar on right, sheet support under hips. Total assist of 3 to obtain full upright stance. Max left knee block, pt maintains right knee in flexed position. Pushes left with max/total assist to obtain midline positioning. Stand pivot : not safe to attempt. Use of cee w/c to/from bed Trialed use of transfer board w/c to level mat: draw sheet assist, max/total of 3 for left leg block, trunk control due to pushes left and posterior. Car transfer: not safe to attempt GAIT Unsafe to attempt ambulation 10, 50',150'. Static stance from edge of mat as noted above: stood grossly 60 seconds with max/total assist of 3. Ambulates 10' on compliant surfaces : not safe to attempt Unsafe to retrieve object from floor STAIRS Ascends/descends curb : not safe to attempt Acscends/descends 4, 12 steps unsafe to attempt at this time WHEELCHAIR MOBILITY Pt requires tilt in space w/c for upright positioning support, trunk control, head support. Left half lap tray and use of gel heel protector to assist with maintaining positioning. Use of heel protectors at bilateral knee to control pressure on fibular heads. Dependent for up to 150' OUTCOME MEASURES: AGITATED BEHAVIOR SCALE 18 POSTURAL ASSESSMENT OF STROKE : PROGRESS: Mr. Chaparro is tolerating therapy fair due to pain in left shoulder, left hip/groin, at times sacral area. He responds to interventions and frequent redirection due to very distractible. Focusing on sitting balance, tolerance, various position changes. He does work hard and will benefit fromtherapy to maximize functional gains, improve overall tolerance to mobility. Factors in Goal Achievement: Facilitating Factors: Patient understanding and knowledge Barriers: Strength limitations, Pain, Motor control deficits, Balance deficits and Decreased patient understanding Date Last Assessed: 11/12/2022 CARE Score Mg: 6: Independent. [place] provides no assistance with tasks. A device may or may not have been used. 5: Set-up or clean-up assistance. [place] sets up or cleans up, but does not assist with tasks. [place]nut may have assisted prior to or following the activity. 4: Supervision or touching assistance. [place] provides verbal cues or touching/steadying or contactguard assistance. Assistance may be provided throughout the activity or intermittently. 3: Partial/moderate assistance. [place] does less than half the effort. Walnut lifts, holds, or supports trunk or limbs, but provides less than half the effort. 2: Substantial/maximal assistance. [place] does more than half the effort. [place]nut lifts or holds trunk or limbs, and provides more than half the effort. 1: Dependent. [place] does all of the effort, or the assistance of two or more helpers is required for the patient to complete the activity. -: Inconsistent or incomplete documentation Activity not attempted values: 7: Patient refused 9: Not applicable - Not attempted and the patient did not perform this activity prior to the current illness, exacerbation, or injury. 10: Not attempted due to environmental limitations (e.g., lack of equipment, weather constraints) 88: Not attempted due to medical condition or safety concerns Residential Goals: Goal Status on Admission Current Status Car Transfer - CARE Score: 88 (10/29/22 0037 : Irlanda Sher, PT) Walk 10 Feet LTG: Dependent (pt will ambulate 10ft with hemiaide and mod/max of two) Walk 10 Feet -CARE Score: 88 (10/29/221746 : Irlanda Sher PT) Walk 50 Feet with Two Turns - CARE Score: 88 (10/29/221746 : Irlanda Sher PT) Walk 150 Feet - CARE Score: 88 (10/29/221746 : Irlanda Sher PT) Walking 10 Feet on Uneven Surfaces - CARE Score: 88 (10/29/221746 : Irlanda Sher PT) 1 Step (Curb) - CARE Score: 88 (10/29/221746 : Irlanda Sher PT) 4 Steps - CARE Score: 88 (10/29/221746 : Irlanda Sher PT) 12 Steps - CARE Score: 88 (10/29/221746 : Irlanda Sher PT) Picking Up Object - CARE Score: 88 (10/29/221746 : Irlanda Sher PT) Wheel 50 Feet with Two Turns LTG: Partial/moderate assistance (pt propel w/c 60ft with right UE/LE and mod assist for guidance.) Wheel 50 Feet with Two Turns - CARE Score: 88 (10/29/221746 : Irlanda Sher PT) Wheel 150 Feet - CARE Score: 88 (10/29/221746 : Irlanda Sher PT) Additional Goals & Status: N/A PT Other Residential Goals Flowsheet Row Most Recent Value Other PT Residential Goals Other Goals - Offset Lithographic 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 Residential 1, Residential 2, Offset Lithographic 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 3, Offset Lithographic 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 4 Filed on: 10/29/20221748 Other Residential Goal 1 w/c to/from level surface with transfer board and mod assist Filed on: 10/29/20221748 Other Residential Goal 1 Status Established Filed on: 10/29/20221748 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 Lithographic 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 Goal 2 sit to stand to hemiaide and mod assist of two Filed on: 10/29/20221748 Other Residential Goal 2 Status Established Filed on: 10/29/20221748 Other Residential Goal 3 tolerate upright position in regular w/c vs tilt in space w/c when out of bed Filed on: 10/29/20221748 Other Residential Goal 3 Status Established Filed on: 10/29/20221748 Other Residential Goal 4 sit to/from supine with mod assist. Filed on: 10/29/20221748 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 Lithographic 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 Goal 4 Status Established Filed on: 10/29/20221748 PT Short Term Goal 1: Details: Sit to/from supine with max assist Expected Achievement Date: 11/19/2022 Goal Status: Not Achieved PT Short Term Goal 2: Details: W/c to/from level surface with use of transfer board and max assist Expected Achievement Date: 11/19/2022 Status: Not Achieved PT Short Term Goal 3: Details: Sit to cable tv installer parallel bars with max assist. Expected Achievement Date: 11/19/2022 Status: Not Achieved PT Short Term Goal 4: Details: Pt ambulate 5ft in parallel bars with mod/max assist of two. Expected Achievement Date: 11/19/2022 Goal Status: Not Achieved Extend Therapy Duration (# of Days): 6 Duration Expiration Date: 11/24/2022 IRLANDA SHER, PT 11/12/2022 * OIL GAS AND PIPE TESTER Weekly Progress Note - [facility] - 11/12/2022 5:13 PM CDT Speech Language Pathologist Weekly Progress Note Patient Name: Esperanza Chaparro Patient Birthdate: 1955 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 Chaparro is a 67 year old male referred to speech therapy for evaluation and treatment following recent hospitalization with a diagnosis of CVA. Patient presented to the hospital initially on 10/12/22 due to a peritonsillar abscess, reporting dysphagia symptoms with liquids and solids. While there, he developed left sided weakness with confirmation of CVA. He was living with his sister prior to admission and was independent with ADLs and IADLs and driving. 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 Current functional status is as follows: PROGRESS 11/02/22: Evaluation was completed on 10/29/22. All goals remain appropriate to continue at this time due to limited number of sessions thus far. Patient is distracted by pain and discomfort when up in wheelchair during therapy sessions. He requires frequent encouragement for task persistence. Patient requires assistance with tray set-up and at least some degree of supervision/assistance with feeding due to left visual impairment and left side weakness. PROGRESS 11/06/22: Patient is making good progress towards his speech therapy goals. He has participated in discussion this week regarding stroke risk factors and prevention. He has shown improved ability to solve basic problem-solving situations. He is using compensatory strategies with minimal cueing to locate information on the left side for visual matching tasks. Patient is managing current diet well and would benefit from further assessment to determine safety of upgraded solid textures at this time. PROGRESS 11/12/22: Mr. Waldrop is seen for 45 minutes of speech therapy daily with focus on dysphagia management, functional communication and cognitive retraining. He is making progress in all goaled areas. Trials of regular consistency food items have been completed this week. Patient is recalling safe swallow strategies and using them with minimal-moderate assistance depending on comfort and pain level. Patient's attention during meals and structured tasks is improving, however, when structure isnot imposed it is very difficult for him to focus due to both internal and external events. Improvements noted in recall of daily events and therapy information. Problem solving and reasoning continue to require minimal assistance. He will need 24 hour assistance with ADLs and IADLS at discharge. SWALLOWING: Current diet: SOFT & BITE SIZED with THIN LIQUIDS (IDDSI 6/0) Mild spillage and oral residue noted on the left side. COMMUNICATION: COMPREHENSION- SUPERVISION. Patient is able to comprehend information regarding basic needs over 90% of the time. Increased difficulty noted with comprehension of complex or abstract information. EXPRESSION- SUPERVISION. Patient is able to express information regarding basic needs over 90% of the time. Increased difficulty noted with comprehension of complex or abstract information. Patient presents with mild dysarthria but mostly intelligible speech. COGNITION: PROBLEM-SOLVING- Improved to MINIMAL ASSISTANCE. Patient is able to solve routine problems at least75% of the time. Improvement noted in ability to provide appropriate responses for basic verbal problem-solving situations. Increased assistance required for multi-step sequencing and mathematical reasoning tasks. MEMORY: improved to MINIMAL ASSISTANCE. Patient is able to recognize and remember people, routines,and requests 50-74% of the time. SOCIAL INTERACTION: MINIMAL ASSISTANCE. Patient presents with frequent fatigue and pain which interferes with performance in therapy. He requires frequent encouragement to continue with participationin therapy tasks. RECOMMENDATION: Mr. Chaparro will benefit from continued speech therapy services to address the following plan of care: patient and family education; use of compensatory strategies; interventions for improved strength and movement of left facial musculature; interventions for improved swallowing function to manage least restrictive solid and liquid consistencies; and cognitive retraining for functional reasoning and memory skills to increase safety and independence at discharge. The Patient: [ ]is able to state 2 risk factors without VCs prior to discharge [X ]requires cues to recall 2 stroke risk factors [ ] Is unable to state stroke risk factors due to communication or cognitive deficits Facilitating Factors in Goal Achievement: Patient compliance, Improvement in cognitive skills, Progress to date, Increased visual acuity/attention and Support of other(s) Barriers to Goal Achievement: Pain, Other (comment) and Visual inattention/neglect (cognition) Date Last Assessed: 11/06/2022 Residential Goals: Goal Status on Evaluation Current Progress Towards Goal Level of Assistance to Meet Problem Solving: Min assist (10-24%) Problem Solving Details: Improve functional problem-solving skills to minimal assistance to solve routine problems at least 75% of the time. Problem Solving Expected Achievement Date: 11/25/22 ONGOING Level of Assistance to Meet Memory: Min assist (10-24%) Memory Details: Improve functional memory skills to minimal assistance to recognize and remember people, routines, and requests at least 75% of the time. Memory Expected Achievement Date: 11/25/22 ONGOING Swallowing Details: Safely manage regular texture solids and thin liquids with no clinical signs ofdysphagia. Swallowing Expected Achievement Date: 11/25/22 ONGOING OIL GAS AND PIPE TESTER Short Term Goals: Problem Solving: Details: Complete functional problem-solving/reasoning tasks with 70% accuracy. REVISED 11/06/22 : Complete functional problem-solving/reasoning tasks with 80% accuracy. Expected Achievement Date: 11/20/2022 Goal Status: Not Achieved Memory: Details: Complete short term memory tasks with 70% accuracy. REVISED 11/06/22: Complete short term memory tasks with 80% accuracy. Expected Achievement Date: 11/20/2022 Goal Status: Not Achieved Additional Cognition: Details: Participate in further assessment of cognitive skills using a standardized measure. Expected Achievement Date: 11/20/2022 Goal Status: Not Achieved Swallowing: Details: Safely manage current diet and thin liquids using compensatory strategies with no clinicalsigns of dysphagia. Expected Achievement Date: 11/09/2022 Goal Status: Achieved Other STG 1: Focus: Swallowing Details: Participate in NMES (PENS) to stimulate left facial musculature. Expected Achievement Date: 11/20/2022 Goal Status: Not Achieved Other STG 2: Focus: Additional Cognition Level of Assistance to Meet Other STG 2: Independent Details: Recall 2 factors for stroke prevention independently. Expected Achievement Date: 11/20/2022 Goal Status: Partially Achieved Other STG 3: Focus: Additional Cognition Level of Assistance to Meet Other STG 3: Min assist (10-24%) Details: Complete tasks to target left attention with minimal assistance. Expected Achievement Date: 11/20/2022 Goal Status: Partially Achieved Other STG 4: Focus: Swallowing Details: Participate in trials to assess for safety of diet upgrade. Expected Achievement Date: 11/20/2022 Goal Status: Partially Achieved [facility] 11/12/2022 * OIL GAS AND PIPE TESTER Treatment Note - [facility] - 11/12/2022 1:00 PM CDT Speech Language Pathologist Treatment Patient Name: Esperanza Chaparro Patient Birthdate: 1955 Patient Subjective Report - Pain Assessment Pain Context: Therapy Assessment During Treatment (11/12/22 130) Pain Assessment: NRS 0-10 (11/12/22 1302) Pain Score: 7 - Severe Pain (11/12/22 1302) Pain Severity - NRS (Calculated): Severe (11/12/22 1302) Pain Location: Generalized (11/12/22 130) Pain Descriptors: Aching, Discomfort (11/12/22 130) Pain Onset: Ongoing (11/12/22 130) Pain Frequency: Constant/continuous (11/12/22 130) Aggravating Factors: Activity Duration, Positioning (11/12/22 1302) Alleviating Factors: medication, positioning (11/12/22 1302) Functional Impact: Self care/ADL's (11/12/22 130) Pain Interventions Education Provided: Patient (11/12/22 130) Non-Pharmacologic Pain Interventions: Distractions, Position/Reposition (11/12/22 130) Emotional/Spiritual Pain Interventions: Emotional Support, Empathetic Discussion (11/12/22 130) Pain Consults Initiated or Completed: Rehab (11/12/22 130) Cognitive Communication: Immediate memory, Short-term memory, Processing information of increased length or complexity, Semi-complex to complex attention, Task persistence, Self monitoring, Speed of processing, Planning and sequencing, Organization, Verbal problem solving and Visual strategies Dysphagia Treatment: Swallow strategy training, Oral care and Dysphagia diet training Recommended diet: IDDSI 6 - Soft & Bite-Sized / NDD3, Pills Whole in IDDSI 4 (Pureed / Extremely Thick) and IDDSI 0 - Thin Liquids / All Liquids Compensatory swallowing techniques: Small bites, Small sips, Eat slowly-control rate, Seated upright with all PO intake, Monitor oral spillage, Oral care post PO intake and Other (comment) (Avoid large bore straw) Level of supervision at meals recommended: 1 to 1 assistance due to cognitive or motor deficits Patient/Caregiver Training: Completed with patient, Therapy goals and treatment plan, Oral hygiene,Cognitive strategies, Cognitive Communication Disorder, Dysphagia, Swallow strategies and Current diet ST Narrative:: Mr. Chaparro was seen bedside for speech therapy this afternoon. He was awake, alert initially with pain meds taking affect [facility] through session and decreasing alertness. He was cooperative with the following therapy tasks. 1. Scanning: Required cue to scan your whole tray to locate utensils, napkin and left portions offood on his tray. 2. Memory: Did not recall OIL GAS AND PIPE TESTER was ordering a trial tray for him at lunch. OIL GAS AND PIPE TESTER had gone in his room earlier this morning to remind him. When OIL GAS AND PIPE TESTER arrived for session he was just finishing his lunch tray and stated they brought me the wrong tray . Reminded him of the conversation this morning re: SLPordering a trial tray that would come in addition to his scheduled tray just like we'd done two previous sessions. He acknowledged forgetting this conversation. Recalled 4 safe swallow strategies independently and emphasized stop talking while i'm eating as being very important. 3. Swallowing: observed with IDDSI 7/0 trial tray with chicken breast (grilled), mashed potatoes and corn. Reviewed with patient the reasons his diet was not upgraded following last trial tray. He endorsed the difficulty with pocketing and clearing food from his left cheek, but was able to list howhe was working toward attaining his goal for tolerating a regular diet. He minimized conversation for duration of meal, partially due to his pain medications taking effect as the session progressed. He was able to rate his use of the strategy appropriately and states it was hard at the end because he lost focus and was falling asleep. Participated in discussion of how pain medications can also inh ibit his safety at meal times and falling asleep with food still in his mouth puts him at high riskfor choking. He expressed understanding. Patient instructed throughout to utilize a full lingual sweep, digital pressure to his left cheek and alternating liquid wash to clear oral cavity. He required moderate cues to do so when needed although was using a full lingual sweep more consistently todaythan in past sessions. Frequently indicated his mouth was clean when there was still residue in left cheek. Required minimal cues to delay next bite until oral cavity was clear. Continued improvement with use of safe swallow strategies. Needs to increase awareness of positioning in bed for meals as well as monitoring rate, bite size and conversation during meals. 4. Pt remained in bed with call light and phone within reach. Alarm on. ST Session Outcomes: Patient/family education progressing, Progressing toward STGs, Tolerated treatment well and Minimal cues during session ST Summary Plan of Care: Continue with current plan of care Pain Evaluation and Follow-up Response to Therapy Interventions: Decreased complaints of pain (11/12/22 1345) Pain Reassessment: 6 (11/12/22 1345) Nursing notified of patient's pain assessment: Primary Nurse (11/12/22 1345) Therapy Minutes Individual Concurrent Co-Treat Time In : 1300 Time Out: 1348 Total Time with Patient (Min): 48 min Missed Minutes : [address] 11/12/2022 * OT Weekly Progress Note - Luke Robertson, OT - 11/12/2022 12:43 PM CDT Occupational Therapy Weekly Progress Note Patient Name: Esperanza Chaparro Patient Birthdate: 1955 OT Current Functional Status: Mr Chaparro's current functional status is as follows: EATING: supervision and cues for visual scanning to the left and for clearing left side of mouth (some spilling on left side) ORAL HYGIENE: supervision, cues for thoroughness TOILETING: dependent; pt uses bedpan and urinal, two person assist BATHING: max assist for sponge bathing bed level UB DRESSING: max assist LB DRESSING: dependent, bed level PUTTING ON/TAKING OFF FOOTWEAR: dependent, bed level ROLL LEFT AND RIGHT: dependent for rolling to the right; mod assist for rolling to the left SIT TO LYING: dependent LYING TO SITTING: dependent SIT TO STAND: dependent BED TO CHAIR TRANSFER: dependent, cee lift 2-3 person assist TOILET TRANSFER: NT b/c of safety concerns with balance Facilitating Factors in Goal Achievement: Patient compliance, Patient motivation, Use of compensatory strategies and Support of family or caregiver Barriers to Goal Achievement: Pain, Motor control deficits, Balance deficits, Strength limitations,ROM limitations, Diminished endurance and Visual deficits Patient needs assistance with the following activities: Activities of daily living, Going out in the community, Use of bathroom equipment, Positioning, Rolling and Sitting balance CARE Score Mg: 6: Independent. [place] provides no assistance with tasks. A device may or may not have been used. 5: Set-up or clean-up assistance. Walnut sets up or cleans up, but does not assist with tasks. Walnut may have assisted prior to or following the activity. 4: Supervision or touching assistance. Walnut provides verbal cues or touching/steadying or contactguard assistance. Assistance may be provided throughout the activity or intermittently. 3: Partial/moderate assistance. Walnut does less than half the effort. Walnut lifts, holds, or supports trunk or limbs, but provides less than half the effort. 2: Substantial/maximal assistance. Walnut does more than half the effort. Walnut lifts or holds trunk or limbs, and provides more than half the effort. 1: Dependent. Walnut does all of the effort, or the assistance of two or more helpers is required for the patient to complete the activity. -: Inconsistent or incomplete documentation Activity not attempted values: 7: Patient refused 9: Not applicable - Not attempted and the patient did not perform this activity prior to the current illness, exacerbation, or injury. 10: Not attempted due to environmental limitations (e.g., lack of equipment, weather constraints) 88: Not attempted due to medical condition or safety concerns Residential Goals: Goal Status on Admission Current Status Eating - CARE Score: 4 (10/29/22 1021 : Luke Robertson, OT) Eating - CARE Score: 4 (11/12/22 1242) Oral Hygiene - CARE Score: 3 (10/29/22 1021 : Luke Robertson OT) Oral Hygiene - CARE Score: 4 (11/12/22 1242) Toileting Hygiene LTG: Partial/moderate assistance Toileting Hygiene - CARE Score: 1 (10/29/22 1021: Luke Robertson OT) Toileting Hygiene - CARE Score: 1 (11/12/22 1242) Shower/Bathe Self LTG: Partial/moderate assistance Shower/Bathe Self - CARE Score: 1 (10/29/22 1021: Luke Robertson OT) Shower/Bathe Self - CARE Score: 2 (11/12/22 1242) Upper Body Dressing LTG: Partial/moderate assistance Upper Body Dressing - CARE Score: 1 (10/29/22 1021 : Luke Robertson OT) Upper Body Dressing - CARE Score: 2 (11/12/22 1242) Lower Body Dressing LTG: Partial/moderate assistance Lower Body Dressing - CARE Score: 1 (10/29/22 1021 : Luke Robertson OT) Lower Body Dressing - CARE Score: 1 (11/12/22 1242) Putting On/Taking Off Footwear LTG: Partial/moderate assistance Putting On/Taking Off Footwear - CARE Score: 1 (10/29/22 1021 : Luke Robertson, OT) Putting On/Taking Off Footwear - CARE Score: 1 (11/12/22 1242) Roll Left and Right - CARE Score: 1 (10/29/22 1021 : Luke Robertson OT) Roll Left and Right - CARE Score: 1 (11/12/22 1242) Sit to Lying - CARE Score: 1 (10/29/22 1021 : Luke Robertson OT) Sit to Lying - CARE Score: 1 (11/12/22 1242) Lying to Sitting on Side of Bed - CARE Score: 1 (10/29/22 1021 : Luke Robertson, OT) Lying toSitting on Side of Bed - CARE Score: 1 (11/12/22 1242) Sit to Stand - CARE Score: 88 (10/29/22 1021 : Luke Robertson, OT) Sit to Stand - CARE Score:1 (11/12/22 124) Chair/Afu-hc-Bebhk Transfer LTG: Partial/moderate assistance Chair/Hvm-gl-Ovsmd Transfer - CARE Score: 88 (10/29/22 1021 : Luke Robertson, OT) Chair/Sxj-vj-Zazjh Transfer - CARE Score: 1 (11/12/22 124) Toilet Transfer LTG: Partial/moderate assistance Toilet Transfer - CARE Score: 88 (10/29/22 1021 : Luke Robertson OT) Toilet Transfer - CARE Score: 88 (11/12/22 124) Additional Goals & Status: N/A OT Short Term Goal 1: Focus: Toileting Hygiene Level of Assistance to Meet Short Term Goal: Physical assistance 50%-74% Expected Achievement Date: 11/19/2022 Goal Status: Not Achieved OT Short Term Goal 2: Focus: Shower/Bathe Level of Assistance to Meet Short Term Goal: Physical assistance 50%-74% Expected Achievement Date: 11/17/2022 Goal Status: Achieved OT Short Term Goal 3: Focus: Upper Body Dressing Level of Assistance to Meet Short Term Goal: Physical assistance 50%-74% Expected Achievement Date: 11/09/2022 Goal Status: Achieved OT Short Term Goal 4: Focus: Lower Body Dressing Level of Assistance to Meet Short Term Goal: Physical assistance 50%-74% Expected Achievement Date: 11/19/2022 Goal Status: Not Achieved OT Short Term Goal 5: Focus: Toilet Transfer Level of Assistance to Meet Short Term Goal: Physical assistance 50%-74% Expected Achievement Date: 11/11/2022 Goal Status: Not Achieved OT Short Term Goal 6: Focus: Shower/Bathe Level of Assistance to Meet Short Term Goal: Physical assistance 25%-49% Expected Achievement Date: 11/20/2022 Goal Status: Not Achieved OT Short Term Goal 7: Focus: Upper Body Dressing Level of Assistance to Meet Short Term Goal: Physical assistance 25%-49% Expected Achievement Date: 11/20/2022 Goal Status: Not Achieved LUKE ROBERTSON OT 11/12/2022 * Plan of Care - Mary Darby RN - 11/12/2022 11:21 AM CDT Problem: Infection Goal: Absence of infection and prevention of transmission during hospitalization Outcome: Progressing Problem: Knowledge Deficit Goal: Patient and/or family demonstrate readiness to learn Outcome: Progressing Goal: Patient and/or family verbalizes understanding of education, and/or performs desired skill Outcome: Progressing Problem: Discharge Planning Goal: Discharge to home or other facility with appropriate resources Outcome: Progressing Goal: client services assistant will develop a plan to decrease their burden and enhance comfort in role Outcome: Progressing Problem: Delirium Goal: Prevent and Manage Delirium Outcome: Progressing Problem: Fall Safety: [place] Precautions Goal: Free from fall injury Outcome: Progressing Problem: Fall Huddle Goal: Free from Fall Injury Outcome: Progressing Problem: Fall Prevention: Fatigue Bundle Goal: Patient will be free from Fall Injury Outcome: Progressing Problem: Fall Safety: [place] Precautions Goal: Free from fall injury Outcome: Progressing Problem: Fall Huddle Goal: Free from Fall Injury Outcome: Progressing Problem: Pain Goal: Patient's Pain/Discomfort is Manageable Outcome: Progressing Problem: Knowledge Deficit Goal: Patient/family/caregiver demonstrates understanding of disease process, treatment plan, medications, and discharge instructions Outcome: Progressing Problem: Potential for Compromised Skin Integrity Goal: Skin integrity is maintained or improved Outcome: Progressing Goal: Nutritional status is improving Outcome: Progressing Problem: Urinary Incontinence Goal: Perineal skin integrity is maintained or improved Outcome: Progressing Problem: Bowel Incontinence Goal: Perineal Skin Integrity is Maintained or Improved Outcome: Progressing Problem: Fall Prevention: Neglect/Hemiparesis Bundle Goal: Patient will be free from Fall Injury Outcome: Progressing * OT Treatment Note - Luke Robertson OT - 11/12/2022 10:31 AM CDT Occupational Therapy Treatment Patient Name: Esperanza Chaparro Patient Birthdate: 1955 Patient Subjective Report - I need to get back in bed! My pain is so severe! Pain Assessment Pain Context: Therapy Assessment Prior to Treatment (11/12/22 1037) Pain Assessment: NRS 0-10 (11/12/22 1037) Pain Score: 10 (11/12/22 1037) Pain Severity - NRS (Calculated): Severe (11/12/22 1037) Pain Location: Generalized (back, buttocks, L arm) (11/12/22 1037) Pain Interventions Education Provided: Patient (11/12/22 1202) Non-Pharmacologic Pain Interventions: Position/Reposition, Distractions (11/12/22 1202) ADL Training: ADL Training Narrative: EATING: supervision and set up assist, cues for locating items on left side of tray ORAL HYGIENE: supervision and cues, extra time needed; pt needs cues to locate items in his left visual field. He needs reminders to brush thoroughly on left side of mouth. Pt used R hand only. TOILETING: dependent, bed level assist for using urinal and bedpan BATHING: dependent for sponge bathing; pt is able to wash his face and chest with cues; he needs assist for all other body parts. Two person assist needed for rolling for washing buttocks and back. Dependent assist for shaving face and applying deodorant. UB DRESSING: max assist for don/doffing hospital gown (patient can assist with don/doffing right arm into sleeve) LB DRESSING: dependent, two person assist, bed level PUTTING ON/TAKING OFF FOOTWEAR: dependent ROLL LEFT AND RIGHT: mod assist for rolling to the left; dependent for rolling to the right. SIT TO LYING: Sit to stand: NT b/c of safety concerns BED TO CHAIR TRANSFER: dependent, 3 person assist with cee lift TOILET TRANSFER: NT b/c of safety concerns with balance OT Therapeutic Activity: Therapeutic Exercise: Pt needs dependent assistance for repositioning in wheelchair as he complainsof pain in hip, back, buttocks and L arm and was sitting off-center in the wheelchair. Pt tends to push to the left using his R UE. Mr Chaparro used R UE for strengthening ex using 2# weight, 20 reps each of bicep curls, shoulder press, and punches. Mr Chaparro participated in PROM of L UE, supination/pronation, wrist flexion and extension, finger flexion and extension, elbow flexion and extension and shoulder flexion (limited to about 60 degrees b/c of shoulder pain). No AROM noted in L UE. Treatment, Outcomes and Plan: OT Narrative:: Mr Chaparro tolerated session well. He c/o pain in L UE, hip and back and needs frequentrepositioning in bed and w/c. He continues to be dependent with LB dressing, toileting and bathing b/c of impaired functional mobility (no AROM noted in L UE) and impaired visual perceptual skills (left inattention). Continued intensive OT recommended. OT Treatment Outcomes:: Safety device reapplied, Patient tolerated treatment well, Patient is progressing toward STG(s), Goals met for this session and Improved ADL performance OT Summary Plan of Care: Continue with current plan of care Pain Evaluation and Follow-up Pain Reassessment: 8 (11/12/22 1238) Nursing notified of patient's pain assessment: Primary Nurse (11/12/22 123) Therapy Minutes Individual Concurrent Co-Treat Individual (OT) Time In : 1031 Time Out: 1202 Total Time with Patient (Min): 91 min LUKE ROBERTSON OT 11/12/2022 * PT Treatment Note - Irlanda Sher, PT - 11/12/2022 9:00 AM CDT PT Treatment Patient Name: Esperanza Chaparro Patient Birthdate: 1955 Patient Subjective Report - pt reports feeling sleepy this date. Reports pain in left arm and left groin but ok for therapy. Pain Assessment Pain Context: Therapy Assessment Prior to Treatment (11/12/22899) Pain Assessment: NRS 0-10 (11/12/22899) Pain Score: 7 - Severe Pain (11/12/22899) Pain Severity - NRS (Calculated): Severe (11/12/22899) Pain Location: Shoulder, Groin (11/12/22899) Pain Orientation: Left (11/12/22899) Pain Descriptors: Aching (11/12/22899) Pain Onset: Ongoing (11/12/22899) Pain Frequency: Constant/continuous (11/12/22899) Aggravating Factors: Activity Duration (11/12/22899) Functional Impact: Transfers, Specified Movement/Other (Comment) (11/12/22899) Pain Interventions Education Provided: Patient (11/12/22945) Non-Pharmacologic Pain Interventions: Position/Reposition (11/12/22945) Emotional/Spiritual Pain Interventions: Emotional Support (11/12/22945) Therapeutic Activities and Neuromuscular Re-education: Pt up in chair upon arrival, strong push left with trunk. Pt brought to therapy gym: repositioned at hips for midline positioning. Noted contact on push handle of back of chair on left side. Use of sling to assist left UE. Use of cee for transfer w/c to sit at edge of barihub mat with backrest of mat elevated. Max/total assist initially to bring wt forward/centered due to strong push posterior/feeling of falling. Once centered: use of wedge for support/wt shift to right/control push. Tactile and verbal cues for upright/centered head positioning, to scan left of midline. Use of right UE and warm cloth to wash face off. Cues and mod/max assist to bring wt forward for unsupported static sitting, cues for right UE support/control push- assist varies from min/mod up to max depending on report of pain in back/left groinor just balance. Very distractible but redirected. Backrest of tilt in space w/c elevated to provide improved trunk support, control lean on push handle. Use of cee for transition back to tilt in space w/c. Headrest adjusted. Use of half lap tray on left for UE support and elevated forwarm on pillow. PT Treatment Outcomes:: Safety device reapplied and Patient tolerated session fair PT Summary:: Mr. Chaparro tolerated the session fair, frequent redirection during activity. End of session pt reported he felt a little better in the chair. He will continue to benefit from intensive therapy to maximize functional gains. PT Summary Plan of Care: Continue with current plan of care Pain Evaluation and Follow-up Response to Therapy Interventions: Other (comment) (toleratated session, still 11/16) (11/12/22945) Pain Reassessment: 7 (11/12/22945) Nursing notified of patient's pain assessment: Primary Nurse (11/12/22 0946) Therapy Minutes Individual Concurrent Co-Treat Individual (PT) Time In : 0900 Time Out: 945 Total Time with Patient (Min): 46 min IRLANDA SHER, PT 11/12/2022 * Plan of Care - Zoya Herrera - 11/12/2022 12:03 AM CDT Problem: Infection Goal: Absence of infection and prevention of transmission during hospitalization Outcome: Progressing Problem: Knowledge Deficit Goal: Patient and/or family demonstrate readiness to learn Outcome: Progressing Goal: Patient and/or family verbalizes understanding of education, and/or performs desired skill Outcome: Progressing Problem: Discharge Planning Goal: Discharge to home or other facility with appropriate resources Outcome: Progressing Goal: client services assistant will develop a plan to decrease their burden and enhance comfort in role Outcome: Progressing Problem: Delirium Goal: Prevent and Manage Delirium Outcome: Progressing Problem: Fall Safety: [place] Precautions Goal: Free from fall injury Outcome: Progressing Problem: Fall Huddle Goal: Free from Fall Injury Outcome: Progressing Problem: Fall Prevention: Fatigue Bundle Goal: Patient will be free from Fall Injury Outcome: Progressing Problem: Fall Safety: [place] Precautions Goal: Free from fall injury Outcome: Progressing Problem: Fall Huddle Goal: Free from Fall Injury Outcome: Progressing Problem: Pain Goal: Patient's Pain/Discomfort is Manageable Outcome: Progressing Problem: Knowledge Deficit Goal: Patient/family/caregiver demonstrates understanding of disease process, treatment plan, medications, and discharge instructions Outcome: Progressing Problem: Potential for Compromised Skin Integrity Goal: Skin integrity is maintained or improved Outcome: Progressing Goal: Nutritional status is improving Outcome: Progressing Problem: Urinary Incontinence Goal: Perineal skin integrity is maintained or improved Outcome: Progressing Problem: Bowel Incontinence Goal: Perineal Skin Integrity is Maintained or Improved Outcome: Progressing Problem: Fall Prevention: Neglect/Hemiparesis Bundle Goal: Patient will be free from Fall Injury Outcome: Progressing * OIL G[employer] PIPE TESTER Treatment Note - [facility] - 11/11/2022 2:33 PM CDT Speech Language Pathologist Treatment Patient Name: Esperanza Chaparro Patient Birthdate: 1955 Patient Subjective Report - I've been waiting for that hamburger all day! Pain Assessment Pain Context: Therapy Assessment During Treatment (11/11/221432) Pain Assessment: NRS 0-10 (11/11/221432) Pain Score: 8 (11/11/221432) Pain Severity - NRS (Calculated): Severe (11/11/221432) Pain Type: Acute pain (11/11/221432) Pain Location: Generalized (11/11/221432) Pain Descriptors: Aching, Discomfort (11/11/221432) Pain Onset: Ongoing (11/11/221432) Pain Frequency: Constant/continuous (11/11/221432) Aggravating Factors: Activity Duration, Positioning (11/11/221432) Functional Impact: Self care/ADL's (11/11/221432) Pre-therapy pain intervention required: Patient expressed pain is tolerable/able to proceed (11/11/221432) Pain Interventions Education Provided: Patient, Family (11/11/221432) Non-Pharmacologic Pain Interventions: Position/Reposition, Relaxation (11/11/221432) Emotional/Spiritual Pain Interventions: Emotional Support (11/11/221432) Pain Consults Initiated or Completed: Rehab (11/11/221432) Cognitive Communication: Immediate memory, Short-term memory, Processing information of increased length or complexity, Semi-complex to complex attention, Task persistence, Self monitoring, Speed of processing, Planning and sequencing, Organization, Verbal problem solving and Visual strategies Dysphagia Treatment: Swallow strategy training, Oral care and Dysphagia diet training Recommended diet: IDDSI 6 - Soft & Bite-Sized / NDD3, Pills Whole in IDDSI 4 (Pureed / Extremely Thick) and IDDSI 0 - Thin Liquids / All Liquids Compensatory swallowing techniques: Small bites, Small sips, Eat slowly-control rate, Seated upright with all PO intake, Monitor oral spillage, Oral care post PO intake and Other (comment) (Avoid large bore straw) Level of supervision at meals recommended: 1 to 1 assistance due to cognitive or motor deficits Patient/Caregiver Training: Completed with patient, Therapy goals and treatment plan, Oral hygiene,Cognitive strategies, Cognitive Communication Disorder, Dysphagia, Swallow strategies and Current diet ST Narrative:: Mr. Chaparro was seen in the dining room for speech therapy this afternoon. He was awake, alert and family was present for family training (mom, sister, son in law) He was seated upright in chair, reclined for comfort. He was cooperative with the following therapy tasks. 1. Scanning: Required cue to scan your whole tray to locate utensils, napkin and left portions offood on his tray. 2. Memory: patient recalled OIL GAS AND PIPE TESTER had set up a trial tray for lunch. Recalled 4 safe swallow strategies independently. 3. Swallowing: observed with IDDSI 0 trial tray with same items he had on previous trial tray (cheeseburger, fries, soda). Reviewed with patient the reasons his diet was not upgraded following lasttrial tray. He initially argued, but stated he was ready to try again and when asked what the number one strategy he needed to impletment was he replied not talking while eating . He was able to follow through with only occasional cues for the first part of meal, then required moderate direct cuesby the end. He was able to rate his use of the strategy appropriately and states it was hard at theend because he lost focus and was distracted by pain. Participated in discussion of how his pain ischronic and if it interferes with his ability to follow his safe swallow strategies it'll affect his potential for diet upgrade. He expressed understanding. Patient instructed throughout to utilize afull lingual sweep, digital pressure to his left cheek and alternating liquid wash to clear oral cavity. He required moderate cues to do so when needed. Frequently indicated his mouth was clean when in fact there was a large amount of residue in left cheek. Required cues to delay next bite until oral cavity was clear. Overall better safety noted this date, however, broke down as he got tired and distracted by pain. Education provided to family on aspiration precautions, nature of patient's dysphagia and general information regarding oral stage deficits. They expressed understanding. Will continue current diet for now and practice with another trial tray tomorrow. 4. 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 Discussed areas of concern for IADL tasks at home such as medication management, paying bills, cooking, etc. Due to deficits in attention/concentration, neglect, problem solving/reasoning, memory and executive functioning. Discussed home safety barriers. Patient's family verbalized understanding that the would need 24hour direct assist with these activities due to deficits related to the stroke. 5. Pt remains in wheelchair with call light and phone within reach. Alarm on. Family present in room and nurse arriving to administer medications. ST Session Outcomes: Patient/family education progressing, Progressing toward STGs, Tolerated treatment well and Minimal cues during session ST Summary Plan of Care: Continue with current plan of care Pain Evaluation and Follow-up Response to Therapy Interventions: Other (comment) (11/11/221513) Pain Reassessment: 8 (11/11/221513) Nursing notified of patient's pain assessment: Primary Nurse (11/11/221513) Therapy Minutes Individual Concurrent Co-Treat Time In : 1440 Time Out: 1530 Total Time with Patient (Min): 50 min Missed Minutes : [address] 11/11/2022 * OT Treatment Note - Kate Torre OT - 11/11/2022 1:55 PM CDT Occupational Therapy Treatment Patient Name: Esperanza Chaparro Patient Birthdate: 1955 Patient Subjective Report - Pt seated in [id number] w/c at start of session. Pt hand off from PTin PT gym for participation in family training with OT with family present throughout session. Pain Assessment Pain Context: Therapy Assessment Prior to Treatment (Filed for start of session at 7669) (11/11/221399) Pain Assessment: NRS 0-10 (11/11/221399) Pain Score: 8 (11/11/221399) Pain Severity - NRS (Calculated): Severe (11/11/221399) Pain Type: Acute pain (11/11/221399) Pain Location: Shoulder, Hip, Leg (11/11/221399) Pain Orientation: Left (11/11/221399) Pain Descriptors: Aching (11/11/221399) Pain Onset: Ongoing (11/11/221399) Pain Frequency: Constant/continuous (11/11/221399) Aggravating Factors: Activity Duration (11/11/221399) Functional Impact: Transfers (07/05/23 1400) Pre-therapy pain intervention required: Patient expressed pain is tolerable/able to proceed, Nurse notified (11/11/22 1400) OT Therapeutic Activity: Other: Session focused on family training with emphasis on positioning, PROM, and other strategies for safe discharge. Therapist provides education on following areas: Protecting Hemiplegic Arm ---Handout and education provided for safe positioning of pt's LUE to prevent shoulder subluxation.Therapist educates pt and pt's family on use of arm/hand sling to provide support under the elbow and wrist for prevention of subluxation and promotion of integrity of joints. Educated on use of pillow under LUE when supine in bed to prevent pressure ulcers. Pt and pt's family also educated on things to avoid to protect LUE, such as avoiding pulling on LUE for moving pt; allowing scapular mobility when ranging LUE, and providing support under LUE with sling, w/c tray, etc. Pt's family verbalized understanding. Weight Shifting ---Therapist provides education on weight shifting techniques to prevent pressure ulcers, alleviatepain, and promote nuetral/midline seated positioning. Therapist educates pt's family on proper positioning technique--to assist pt behind trunk/shoulders rather than pulling on pt's arm to facilitateneutral posture. Pt's family also educated on use of [id number] w/c to alleviate pressure on tailbone and prevent pressure ulcers. Pt's family verbalized understanding. PROM of LUE Therapist provides education on PROM of LUE to promote joint integrity. Therapist performs 1 set x 5 reps of gentle stretching, with instruction of family to practice/perform additional 3 reps of each stretch for increased understanding: Shoulder flexion Elbow flexion/extension Shoulder abduction Digit flexion/extension Wrist flexion/extension Wrist rotation ---Therapist reports to family importance of performing PROM within pt's limits and to avoid/hault ROM if pt reports any pain, or exhibits resistance during PROM. Pt's family verbalizes understanding. Special Test and Outcome Measures (completed during treatment): Agitated Behavior Scale (ABS) 11/11/22 1500 Agitated Behavior Scale Short attention span, easy distractibility, inability to concentrate 1 (Values for session at 1355) Impulsive, impatient, low tolerance for pain or frustration 1 Uncooperative, resistant to care, demanding 1 Violent and-or threatening violence toward people or property 1 Explosive and-or unpredictable anger 1 Rocking, rubbing, moaning, or other self-stimulating behavior 1 Pulling at tubes, restraints, etc. 1 Wandering from treatment areas 1 Restlessness, pacing, excessive movement 1 Repetitive behaviors, motor and-or verbal (perseveration) 1 Rapid, loud, or excessive talking 1 Sudden changes of mood 1 Easily initiated or excessive crying and-or laughter 1 Self-abusiveness, physical and-or verbal 1 Total 14 Treatment, Outcomes and Plan: OT Narrative:: Pt tolerates PROM of LUE well with no c/o pain during PROM. Pt's family receptive toeducation on safe positioning/PROM to ensure safe discharge home. Pt's family verbalized understanding of all education this date. Pt seated in [id number] w/c at end of session with pelvic posterior/safety belt in place, and call button and bedside table within reach at end of session. Pt's family in room at end of session; handoff to OIL G[employer] AND PIPE TESTER. OT Treatment Outcomes:: Safety device reapplied and Patient tolerated treatment well OT Summary Plan of Care: Continue with current plan of care Pain Evaluation and Follow-up Response to Therapy Interventions: Improved positioning (Values for end of session at 1433) (11/11/22 1440) Pain Reassessment: 8 (11/11/22 1440) Nursing notified of patient's pain assessment: Primary Nurse (11/11/22 1440) Therapy Minutes Individual Concurrent Co-Treat Individual (OT) Time In : 1355 Time Out: 1433 Total Time with Patient (Min): 38 min Missed Minutes : -7 KATE TORRE, OT 11/11/2022 * PT Treatment Note - Irlanda Sher, PT - 11/11/2022 1:00 PM CDT PT Treatment Patient Name: Esperanza Chaparro Patient Birthdate: 1955 Patient Subjective Report - pt reports he is ok for therapy, pain in sacral area, left groin, left shoulder with all movement. Pain Assessment Pain Context: Therapy Assessment Prior to Treatment (11/11/22 1300) Pain Assessment: NRS 0-10 (11/11/221299) Pain Score: 8 (11/11/221299) Pain Severity - NRS (Calculated): Severe (11/11/221299) Pain Location: Sacrum, Shoulder, Groin (11/11/221299) Pain Orientation: Left (11/11/221299) Pain Descriptors: Aching, Sharp (11/11/221299) Pain Onset: Ongoing (11/11/221299) Pain Frequency: Constant/continuous (11/11/221299) Aggravating Factors: Activity Duration (11/11/221299) Pre-therapy pain intervention required: Patient expressed pain is tolerable/able to proceed (11/11/221299) Pain Interventions Education Provided: Patient, Family (11/11/221349) Non-Pharmacologic Pain Interventions: Position/Reposition, Exercise/Activity, Distractions (11/11/221349) Emotional/Spiritual Pain Interventions: Emotional Support (11/11/221349) Therapeutic Activities and Neuromuscular Re-education: Pt mother, sister and nephew present for session. Pt up in tilt in space w/c upon arrival. Brought to therapy gym Demonstrated the following and educated family: use of faith sling for left UE support. Benefit of tilt in space w/c to assist with trunk control, positioning/position changes, head support. Half lap tray and gel heel protector to assist left UE positioning. Use of cee lift bed to sit at edge of mat- total assist of 2. Static sitting at edge of mat with max support for centered position. At times pt attempts to steady self with right UE but varies and is distractible. Lateral lean to right UE with max to return to upright. Sit to supine with max of two toward right for trunk and LE support. Rolls left with cues and min assist. To right with total assist of two. Demonstrated positioning ofhoyer pad in supine and in sitting. Discussed use of eulalia pad in bed to assist with positioning. Use of cee mat back to tilt in space w/c. Discussed DME recommendations if discharging to his home: hospital bed, specialty tilt in space w/c, cushion, cee lift. PT Treatment Outcomes:: Safety device reapplied and Patient is progressing toward STG PT Summary:: Pt tolerated the session with frequent redirection to task. Mother, sister and nephew present for training. Sister assisted a little with placement of cee pad, etc but no significant hands on at this point due to pt level of assist required, total assist. Provided handout on positioning in bed for hemiplegia, pressure and pain relief. Family demonstrated understanding of pt current status, educated on varying levels of strokes. Mr. Chaparro will continue to benefit from therapy to maximize functional gains. PT Summary Plan of Care: Continue with current plan of care Pain Evaluation and Follow-up Response to Therapy Interventions: Other (comment) (tolerated session. still 10 when asked) (11/11/22 1350) Pain Reassessment: 8 (11/11/22 135) Nursing notified of patient's pain assessment: Primary Nurse (11/11/221349) Therapy Minutes Individual Concurrent Co-Treat Individual (PT) Time In : 1300 Time Out: 1355 Total Time with Patient (Min): 55 min IRLANDA SHER, PT 11/11/2022 * PT Treatment Note - Irlanda Sher PT - 11/11/2022 12:29 PM CDT PT Treatment Patient Name: Esperanza Chaparro Patient Birthdate: 1955 Patient Subjective Report - pt reports pain in [place], back, left groin, left shoulder at times. Okfor therapy. RN notified for pain meds Pain Assessment Pain Context: Therapy Assessment Prior to Treatment (11/11/22944) Pain Assessment: NRS 0-10 (11/11/22944) Pain Score: 8 (11/11/22944) Pain Severity - NRS (Calculated): Severe (11/11/22944) Pain Location: Shoulder, Sacrum, Hip, Groin (11/11/22944) Pain Orientation: Left (11/11/22944) Pain Descriptors: Aching, Sharp, Sore (11/11/22944) Pain Onset: Ongoing (11/11/22944) Pain Frequency: Constant/continuous (11/11/22944) Aggravating Factors: Positioning (11/11/22944) Pain Interventions Non-Pharmacologic Pain Interventions: Position/Reposition, Exercise/Activity (11/11/22 1033) Therapeutic Activities and Neuromuscular Re-education: Pt up in chair upon arrival. Pt in with hipsshifted and left lean in chair. Use of drawsheet for repositioning in chair- educated pt on attempts to control push with right UE. Use of cee for transfer from tilt in space w/c to barihub mat. Use of elevated pad support posteriorly. Max assist to position into midline. Frequent lean right elbow and mod/max assist to return to centered upright. Pt will attempt to stabilize with right UE with assist but difficulty attending to task, very distractible then requiring max assist for support. Focus on midline head positioning and scanning left. Gentle PROM to left knee into extension. Use of cee to transfer back from edge of mat to tilt in space w/c. Total assist for centered positioning. Adjusted headrest for improved support. Continued education on central positioning/control of push with right UE. Half lap tray for left UE support with gel heel protector under left elbow for pressure relief and positioning. Heel protectors at bilateral lateral knees for pressure relief atfibular head. PT Treatment Outcomes:: Safety device reapplied, Patient tolerated session fair and Patient is progressing toward STG PT Summary:: Mr. Chaparro tolerated the session fair. Constant redirection to task at hand, pt very distractible to his needs. He will continue to benefit from intensive therapy to maximize functional gains and education. PT Summary Plan of Care: Continue with current plan of care Pain Evaluation and Follow-up Response to Therapy Interventions: Other (comment) (tolerated the session, still 8/10 pain when asked but improved positioning.) (11/11/22 1033) Pain Reassessment: 8 (11/11/22 1033) Therapy Minutes Individual Concurrent Co-Treat Individual (PT) Time In : 45 Time Out: 1033 Total Time with Patient (Min): 48 min IRLANDA SHER, PT 11/11/2022 * Plan of Care - Luke Elizalde, RD - 11/11/2022 12:23 PM CDT Problem: Inadequate Oral Intake Description: Oral food/beverage intake that is less than established reference standards or recommendations based on physiological needs. Related to: Decreased ability to consume sufficient energy, e.g., increased nutrition needs due to prolonged catabolic illness As evidenced by: estimated protein needs of 90-95 g/day. Goal: Improve Nutritional Status Outcome: Progressing Flowsheets (Taken 10/29/2022 9351) Meals and Snacks: (soft and bite sized (6) diet) General healthful diet Medical Food Supplement Therapy: (vanilla Ensure high protein TID) Commercial beverage/Oral nutrition supplement * Plan of Care - Jessica Mccann RN - 11/11/2022 4:15 AM CDT Problem: Discharge Planning Goal: Discharge to home or other facility with appropriate resources Outcome: Progressing Flowsheets (Taken 10/31/2022 2017) Discharge to home or other facility with appropriate resources: Identify barriers to discharge with patient and caregiver Arrange for needed discharge resources and transportation as appropriate Identify discharge learning needs (meds, wound care, etc) Refer to Case Management Department for Coordinating discharge planning for if the patient needs post-hospital services based on physician order or complex needs related to functional status, cognitive ability or social support system Problem: Fall Safety: [place] Precautions Goal: Free from fall injury Outcome: Progressing Flowsheets (Taken 11/01/2022 0500 by Juan C Sahu RN) Free from fall injury: Perform fall risk assessment and identifiers in place (as applicable) Frequent rounding/monitoring Lighting appropriate Bed low, locked 2 side rails Use of bed/chair alarm Put call light within reach and teach how to call for assistance, respond to call light immediately Toilet magnet in place ([facility] Only) Offer frequent toileting Assess for environmental or other risks Fall/safety education for patient/family/SO Problem: Fall Safety: [place] Precautions Goal: Free from fall injury Outcome: Progressing Flowsheets (Taken 11/01/2022 0500 by Juan C Sahu RN) Free from fall injury: Perform fall risk assessment and identifiers in place (as applicable) Frequent rounding/monitoring Lighting appropriate Bed low, locked 2 side rails Use of bed/chair alarm Put call light within reach and teach how to call for assistance, respond to call light immediately Toilet magnet in place ([facility] Only) Offer frequent toileting Assess for environmental or other risks Fall/safety education for patient/family/SO * OIL GAS AND PIPE TESTER Treatment Note - Matt Plascencia [facility]-OIL GAS AND PIPE TESTER - 11/10/2022 11:25 AM CDT Speech Language Pathologist Treatment Patient Name: Esperanza Chaparro Patient Birthdate: 1955 Patient Subjective Report - I'm doing ok. Cognitive Communication: Immediate memory, Short-term memory, Processing information of increased length or complexity, Semi-complex to complex attention, Task persistence, Self monitoring, Speed of processing, Planning and sequencing, Organization, Verbal problem solving and Visual strategies Dysphagia Treatment: Swallow strategy training, Oral care and Dysphagia diet training Recommended diet: IDDSI 6 - Soft & Bite-Sized / NDD3, Pills Whole in IDDSI 4 (Pureed / Extremely Thick) and IDDSI 0 - Thin Liquids / All Liquids Compensatory swallowing techniques: Small bites, Small sips, Eat slowly-control rate, Seated upright with all PO intake, Monitor oral spillage, Oral care post PO intake and Other (comment) (Avoid large bore straw) Level of supervision at meals recommended: 1 to 1 assistance due to cognitive or motor deficits Patient/Caregiver Training: Completed with patient, Therapy goals and treatment plan, Oral hygiene,Cognitive strategies, Cognitive Communication Disorder, Dysphagia, Swallow strategies and Current diet Were respiratory Interventions provided?: No ST Narrative:: 1. Patient was seen for therapy in his room, reclined in chair; alert and cooperative with therapy tasks. 2. Patient completed a left visual attention task, reading aloud numbered questions. Pt completed the task with 0 omissions on left side. Pt answered questions regarding environmental items on his left side with 100% accuracy given supervision. 3. Patient re-educated on stroke s/s via BEFAST. Pt required moderate cues for teachback. Pt educated on risk factors, including smoking, high cholesterol and high blood pressure. Pt recalled BEFAST after 5 minutes with moderate cueing and 2 risk factors with min verbal cueing. Pt recalled smoking as a controllable measure for reducing risk of CVA. Esperanza Chaparro: [ ]is able to state 2 risk factors without VCs prior to discharge [ x]requires cues to recall 2 stroke risk factors [ ] Is unable to state stroke risk factors due to communication or cognitive deficits 4. Patient provided appropriate responses for functional math problem-solving questions with 42% accuracy independently, increasing to 80% accuracy given min cues. 5. Memory - pt stated his memory has been bad prior to the stroke and stated he used notes as a compensatory strategy. Due to fingers being sore, OIL GAS AND PIPE TESTER suggested use of a note aguila on his phone with useof talk to text. Pt generated verbal sequence to download an appropriate note taking aguila on his phone and when faced with a problem (not able to get talk to text) pt generated a solution (asking a family member who's tech-jarocho) pt solved it with supervision. 6) Pt recalled yesterday's trial of cheeseburger, fries and soda. Pt agreed that he coughed 4x on bites and was talking during meals. Pt did not complain of diet remaining at soft and bite sized. Sips of soda taken throughout the session through flexible straw without s/s aspiration and consecutiveswallows taken despite cues for single sips. Pt remains in wheelchair with call light in his lap and tray/water within reach. Alarm on. Continuewith plan of care ST Session Outcomes: Patient/family education progressing, Progressing toward STGs, Tolerated treatment well and Minimal cues during session ST Summary Plan of Care: Continue with current plan of care Pt denies pain at end of session. Therapy Minutes Individual Concurrent Co-Treat Time In : 1115 Time Out: 1200 Total Time with Patient (Min): 45 min Missed Minutes : 0 MATT PLASCENCIA CCC-SLP 11/10/2022 CHART CORRECTION: Reason for Correction: Incorrect time entry * OT Treatment Note - Elvin Santiago, OT - 11/10/2022 10:30 AM CDT Occupational Therapy Treatment Patient Name: Esperanza Chaparro Patient Birthdate: 1955 Patient Subjective Report - Can you fix my head rest Pain Assessment Pain Context: Therapy Assessment During Treatment (11/10/22 1036) Pain Assessment: NRS 0-10 (11/10/221035) Pain Score: 6 (11/10/221035) Pain Severity - NRS (Calculated): Moderate (11/10/221035) Pain Type: Chronic pain (11/10/221035) Pain Location: Buttocks (11/10/221035) Pain Orientation: Mid (11/10/221035) Pain Descriptors: Aching (11/10/221035) Alleviating Factors: reposition (11/10/221035) Pre-therapy pain intervention required: Patient expressed pain is tolerable/able to proceed (11/10/221035) Vital Signs BP: 104/64 (11/10/221035) MAP (mmHg): 77.33 (11/10/221035) BP Location: Left arm (11/10/221035) BP Method: Automatic (11/10/221035) Patient Position: Sitting (11/10/221035) ADL Training: ADL Training Narrative: Pt seated in wheelchair upon arrival. Complaining that he is having troublebreathing and feeling light headed. Vitals are taken and are stable (see above). Pt also asking to get back to bed due to feeling uncomfortable in the chair. Therapist and associate director of nursing assist in adjusting hip position in the chair which also helps him rest his head more comfortably on the head rest. Tilted wc all the way back to reduce pressure and he reports relief Agreeable to range of motino and strengthening after this. OT Therapeutic Activity: Therapeutic Exercise: 2# weight used to complete general UE strengthening to the right arm to increase strength needed for balance support and functional transfers. He completes 15 reps of each exercise including elbow flexion, pronation/supination, wrist extension, wrist flexion 10 reps completed of shoulder flexion, abduction and chest press. Verbal and tactile cues required throughout for form and to stay on task ROM: Yes L Shoulder Motion: Passive range of motion, Flexion, ABduction, External rotation and Internal rotation L Shoulder Exercise Position: Seated L Shoulder Reps/Sets: 10 reps of each exercise L Elbow Motion: Passive range of motion, Elbow extension and Elbow flexion L Elbow Exercise Position: Seated L Elbow Reps/Sets: 10 reps L Forearm Motion: Passive range of motion, Forearm pronation and Forearm supination L Forearm Exercise Position: Seated L Forearm Reps/Sets: 10 reps L Wrist Motion: Passive range of motion, Wrist flexion, Wrist extension, Radial deviation and Ulnardeviation L Wrist Exercise Position: Seated L Wrist Reps/Sets: 10 reps L Hand Motion: Passive range of motion, Thumb, Prolonged stretch, Index finger, Ring finger, Long finger and Little finger L Hand Exercise Position: Seated L Hand Rep/Sets: 10 reps Treatment, Outcomes and Plan: OT Narrative:: Mr Chaparro tolerated treatment fairly. Isrealos improved positioning at end of session anddemo'd improved tolerance to handling of the LUE. He will benefit from continued occupational therapy services to increase activity tolerance and sitting balance to maximize independence OT Treatment Outcomes:: Safety device reapplied and Patient tolerated treatment fairly OT Summary Plan of Care: Continue with current plan of care Pain Evaluation and Follow-up Response to Therapy Interventions: Improved positioning (11/10/221114) Pain Reassessment: 4 (11/10/221114) Nursing notified of patient's pain assessment: Primary Nurse (11/10/221114) Therapy Minutes Individual Concurrent Co-Treat Individual (OT) Time In : 1030 Time Out: 1115 Total Time with Patient (Min): 45 min ELVIN SANTIAGO OT 11/10/2022 * PT Treatment Note - Matt Elaine, PT - 11/10/2022 8:59 AM CDT PT Treatment Patient Name: Esperanza Chaparro Patient Birthdate: 1955 Patient Subjective Report - I don't want to do any standing today. I am pretty sore. Pain Assessment Pain Context: Therapy Assessment Prior to Treatment (11/10/22858) Pain Assessment: NRS 0-10 (11/10/22858) Pain Score: 10 (11/10/22858) Pain Severity - NRS (Calculated): Severe (11/10/22858) Pain Type: Chronic pain, Acute pain (11/10/22858) Pain Location: Back, Neck, Shoulder, Hip (11/10/22858) Pain Orientation: Left, Lower (11/10/22858) Pre-therapy pain intervention required: Patient expressed pain is tolerable/able to proceed, Nursing medicated patient - see MAR (11/10/22858) Pain Interventions Education Provided: Patient (11/10/22858) Non-Pharmacologic Pain Interventions: Exercise/Activity, Distractions (11/10/22858) Emotional/Spiritual Pain Interventions: Emotional Support, Empathetic Discussion (11/10/22858) *Patient found tilted back in wheelchair at the start of session and RN placed lidocaine patches onneck and shoulders. Goal of therapy session to improve sitting balance. TRANSFERS: -WC to mat: performed as slide board transfer to the left with total assist of 4 people due to impaired sitting balance and pushing to the right. -Mat to WC: performed as slide board transfer to the right with total assist of 4. *Patient does attempt to assist with maximal cueing, but is limited by pain, fear of falling, impaired balance, weakness, and decreased coordination. SITTING BALANCE: edge of mat x22 minutes. (Minimal complaints of dizziness, BP stable 124/74 - 115/71, lots of complaints of pain, maximal cueing, feet propped on 4 inch stool for patient comfort, drawsheet around trunk to allow therapist to assist.) Static sitting: moderate - minimal assistance due to pushing left and retropulsion. (Dependent assist initially to stabilize.) Anterior/Posterior weight shifts: x10 Lateral trunk flexion to right elbow with push offs x 15. LAQ: R AROM 2 x10 PROM/AAROM LAQ: 2 x10 (pt demonstrates ability to activate quads intermittently once placed in partial extension, open chain ) PT Treatment Outcomes:: Cues needed for safety, Goals met for this session, Patient tolerated session fair and Safety device reapplied PT Summary Plan of Care: Continue with current plan of care Pain Evaluation and Follow-up Response to Therapy Interventions: Improved activity tolerance (11/10/22858) Pain Reassessment: 10 (11/10/22858) Nursing notified of patient's pain assessment: Primary Nurse (11/10/22858) Therapy Minutes Individual Concurrent Co-Treat Individual (PT) Time In : 858 Time Out: 943 Total Time with Patient (Min): 45 min MATT ELAINE, PT 11/10/2022 * OT Treatment Note - Catherine Bajwa, OT - 11/09/2022 1:40 PM CDT Occupational Therapy Treatment Patient Name: Esperanza Chaparro Patient Birthdate: 1955 Patient Subjective Report - I need to practice walking with a walker so I can do it when I go home. Pt benefited from discussion of current functional status. Pain Assessment Pain Context: Therapy Assessment Prior to Treatment (11/09/22 130) Pain Assessment: NRS 0-10 (11/09/22 130) Pain Score: 8 (11/09/221300) Pain Severity - NRS (Calculated): Severe (11/09/22 130) Pain Type: Acute pain (11/09/221300) Pain Location: Buttocks (11/09/221300) Pain Orientation: Mid (11/09/221300) Pain Descriptors: Aching (11/09/221300) Pain Onset: Ongoing (11/09/221300) Pain Frequency: Constant/continuous (11/09/221300) Aggravating Factors: Positioning (11/09/221300) Functional Impact: Self care/ADL's (11/09/221300) Additional Pain Site(s)?: Pain 2 (11/09/221300) Pre-therapy pain intervention required: Patient expressed pain is tolerable/able to proceed, Nurse notified (11/09/221300) Pain Interventions Education Provided: Patient (11/09/221300) Non-Pharmacologic Pain Interventions: Distractions, Position/Reposition (11/09/221300) Emotional/Spiritual Pain Interventions: Emotional Support, Empathetic Discussion (11/09/221300) Pain Consults Initiated or Completed: Rehab (11/09/221300) Pain Site 2 Pain Assessment Site 2: NRS 0-10 (11/09/221300) Pain Score Site 2: 8 (11/09/221300) Pain Severity - NRS (Calculated): Severe (11/09/22 130) Pain Type Site 2: Acute pain (11/09/221300) Pain Location Site 2: Shoulder (11/09/221300) Pain Orientation Site 2: Left (07/03/23 1301) Pain Descriptors Site 2: Aching (11/09/22 1301) Pain Onset Site 2: On-going (11/09/22 1301) Pain Frequency Site 2: Constant/continuous (11/09/22 1301) Pain Aggravating Factors Site 2: Positioning (11/09/22 1301) 11/09/22 1340 Agitated Behavior Scale Short attention span, easy distractibility, inability to concentrate (!) 3 Short attention span Comment Maximal verbal cues to attend to tasks Impulsive, impatient, low tolerance for pain or frustration (!) 3 Impulsive Comment Pt impatient with staff during cee transfer, easily frustrated Uncooperative, resistant to care, demanding (!) 3 Uncooperative Comment Pt demanding of therapist/nurse home health assistant throughout session Violent and-or threatening violence toward people or property 1 Explosive and-or unpredictable anger 1 Rocking, rubbing, moaning, or other self-stimulating behavior 1 Pulling at tubes, restraints, etc. 1 Wandering from treatment areas 1 Restlessness, pacing, excessive movement 1 Repetitive behaviors, motor and-or verbal (perseveration) (!) 3 Repetitive behaviors Comment Pt perseverating on discomfort in L shoulder and buttocks Rapid, loud, or excessive talking (!) 3 Rapid, loud, or excessive talking Comment Excessive talking Sudden changes of mood 2 Sudden changes of mood Comment Pt fluctuating from anger/sadness Easily initiated or excessive crying and-or laughter 1 Self-abusiveness, physical and-or verbal 1 Total 25 ADL Status: Grooming: Close Supervision Grooming Where Assessed: Sitting at sink Grooming Comments: Pt able to open toothpaste/place on brush with increased time. Pt performed oralhygiene while seated at sink with supervision for safety and VCs for sequencing and problem solving Toileting: Total Assistance/Dependent Toileting Where Assessed: Bed level Toilet Comments: Pt required total A for clothing management and bedpan placement. Secondary to time constraints, pt left in bed on bedpan. RN notified of pt's location and bedpan placement Bed, Chair, Wheelchair Transfer: Total Assistance/Dependent Bed/Chair Transfer to: Bed Bed/Chair Transfer from: Wheelchair Bed/Chair Transfer Technique: Mechanical lift Assistive Devices Used: Other (Comment) (Cee) Bed/Chair Transfer Comments: Pt transferred w/c > bed with increased time and assist x3 for cee pad placement and cee transfer. Pt demonstrated impaired sititng balance and L lateral lean, required total A to correct Bed Mobility: Rolling side to side Bed Mobility Level of Assistance: Maximal Assistance and Total Assistance/Dependent Bed Mobility Comment: Pt rolled to L with max A for hand placement, force production, B LE positioning, and verbal cues due to impaired global strength and cognition. Pt required total A to roll towards R side secondary to L hemiplegia. Treatment, Outcomes and Plan: OT Narrative:: Pt required increased time to participate in ADLs d/t pain and agitation, see ABS. Pt presents with impaired problem solving, sequencing, insight, global strength, sitting balance and L hemiplegia, which limit ADL/IADL performance. Pt would benefit from continued OT interventions to address these deficits and facilitate transition to least restrictive environment. Pt returned to bed at end of session with bed alarm on, phone and call light within reach. Nursing notified that patient has returned to room. OT Treatment Outcomes:: Safety device reapplied, Patient tolerated treatment poorly, Cues needed for safety, Precautions maintained throughtout session and Pain limiting patient progress OT Summary Plan of Care: Continue with current plan of care Pain Evaluation and Follow-up Pain Reassessment: 5 (Buttocks) (11/09/22 1344) Nursing notified of patient's pain assessment: Primary Nurse (11/09/22 1344) Therapy Minutes Individual Concurrent Co-Treat Individual (OT) Time In : 1300 Time Out: 1345 Total Time with Patient (Min): 45 min Missed Minutes : 0 CATHERINE BAJWA OT 11/09/2022 * Plan of Care - Mary Darby RN - 11/09/2022 12:54 PM CDT Problem: Infection Goal: Absence of infection and prevention of transmission during hospitalization Outcome: Progressing Problem: Knowledge Deficit Goal: Patient and/or family demonstrate readiness to learn Outcome: Progressing Goal: Patient and/or family verbalizes understanding of education, and/or performs desired skill Outcome: Progressing Problem: Discharge Planning Goal: Discharge to home or other facility with appropriate resources Outcome: Progressing Goal: client services assistant will develop a plan to decrease their burden and enhance comfort in role Outcome: Progressing Problem: Delirium Goal: Prevent and Manage Delirium Outcome: Progressing Problem: Fall Safety: [place] Precautions Goal: Free from fall injury Outcome: Progressing Problem: Fall Huddle Goal: Free from Fall Injury Outcome: Progressing Problem: Fall Prevention: Fatigue Bundle Goal: Patient will be free from Fall Injury Outcome: Progressing Problem: Fall Safety: [place] Precautions Goal: Free from fall injury Outcome: Progressing Problem: Fall Huddle Goal: Free from Fall Injury Outcome: Progressing Problem: Pain Goal: Patient's Pain/Discomfort is Manageable Outcome: Progressing Problem: Knowledge Deficit Goal: Patient/family/caregiver demonstrates understanding of disease process, treatment plan, medications, and discharge instructions Outcome: Progressing Problem: Potential for Compromised Skin Integrity Goal: Skin integrity is maintained or improved Outcome: Progressing Goal: Nutritional status is improving Outcome: Progressing Problem: Urinary Incontinence Goal: Perineal skin integrity is maintained or improved Outcome: Progressing Problem: Bowel Incontinence Goal: Perineal Skin Integrity is Maintained or Improved Outcome: Progressing Problem: Fall Prevention: Neglect/Hemiparesis Bundle Goal: Patient will be free from Fall Injury Outcome: Progressing * OIL GAS AND PIPE TESTER Treatment Note - Kamran Rodriguez CCC-MALU - 11/09/2022 12:23 PM CDT Speech Language Pathologist Treatment Patient Name: Esperanza Chaparro Patient Birthdate: 1955 Patient Subjective Report - Julián Pain Assessment Pain Context: Therapy Assessment During Treatment (11/09/22 111) Pain Assessment: NRS 0-10 (11/09/22 1110) Pain Score: 10 (11/09/22 111) Pain Severity - NRS (Calculated): Severe (11/09/22 1110) Pain Type: Chronic pain (11/09/22 1110) Pain Location: Hip, Arm (11/09/22 1110) Pain Orientation: Left (11/09/22 111) Pain Descriptors: Aching (11/09/22 1110) Pain Onset: Ongoing (11/09/22 1110) Pain Frequency: Constant/continuous (11/09/22 111) Aggravating Factors: None (11/09/22 1110) Functional Impact: None (11/09/22 111) Pain Interventions Education Provided: Patient (11/09/22 111) Non-Pharmacologic Pain Interventions: Distractions, Position/Reposition (11/09/221109) Emotional/Spiritual Pain Interventions: Emotional Support, Empathetic Discussion (11/09/221109) Pain Consults Initiated or Completed: Rehab (11/09/221109) Cognitive Communication: Immediate memory, Short-term memory, Processing information of increased length or complexity, Semi-complex to complex attention, Task persistence, Self monitoring, Speed of processing, Planning and sequencing, Organization, Verbal problem solving and Visual strategies Dysphagia Treatment: Swallow strategy training, Oral care and Dysphagia diet training Recommended diet: IDDSI 6 - Soft & Bite-Sized / NDD3, Pills Whole in IDDSI 4 (Pureed / Extremely Thick) and IDDSI 0 - Thin Liquids / All Liquids Compensatory swallowing techniques: Small bites, Small sips, Eat slowly-control rate, Seated upright with all PO intake, Monitor oral spillage, Oral care post PO intake and Other (comment) (Avoid large bore straw) Level of supervision at meals recommended: 1 to 1 assistance due to cognitive or motor deficits Patient/Caregiver Training: Completed with patient, Therapy goals and treatment plan, Oral hygiene,Cognitive strategies, Cognitive Communication Disorder, Dysphagia, Swallow strategies and Current diet ST Narrative:: Patient was seen with trial tray of hamburger, fries and soda. He required mod cues to decrease rate of intake, and follow strategies of slow rate, small bites and sips, small bore straw only, monitor for oral residual on left side, only take new bite when mouth is clear. Oral stage demonstrated poor oral control, with food channeling into left side of mouth, poor rotary chewing, poor bolus cohesion, prolonged mastication requiring multiple cues to check left side of mouth for residual and clearing. Patient had multiple episodes of talking while chewing and swallowing, along with attempts to reposition himself, placing him at greater risk for airway penetration. He had 4 episodes of coughing during this trial. Patient continues to demonstrate poor oral awareness of food in mouth, especially with left sided residual, poor clearance of said residual, impulsive feeding and inattention to swallow process, making him currently unsafe for upgrade to regular diet. Patient to continue with soft and bites sized, with thin liquids, with further dysphagia treatment to improve function of swallow. ST Session Outcomes: Patient/family education progressing, Progressing toward STGs, Tolerated treatment well and Minimal cues during session ST Summary Plan of Care: Continue with current plan of care Pain Evaluation and Follow-up Pain Reassessment: 6 (11/09/22 8580) Nursing notified of patient's pain assessment: Primary Nurse (11/09/22 1157) Therapy Minutes Individual Concurrent Co-Treat Time In : 1115 Time Out: 1200 Breaks/Pauses (Min): 0 mins Total Time with Patient (Min): 45 min Missed Minutes : 0 KAMRAN RODRIGUEZ CCC-OIL GAS AND PIPE TESTER 11/09/2022 * Team Conference - TRESA Grier - 11/09/2022 11:39 AM CDT Team Conference Note Date: 11/09/2022 Time: 10:16 AM CDT Patient Name: Esperanza Chaparro Date of : 1955 Sex: Male Room/Bed: [facility]/319-2 Admit Date/Time: 10/28/2022 9:05 PM Patient Active Problem List Diagnosis Date Noted Dysphagia 10/29/2022 Cerebrovascular accident 10/28/2022 Chronic obstructive pulmonary disease 10/12/2022 Coronary arteriosclerosis 10/12/2022 Primary hypertension 12/11/2021 Team Members Present: Attendees: Carolina Garibay MD, Chasity Payne, PharmD, Irlanda Sher PT, Atif Montemayor ST, Mehdi Goldstein OT, Mary Darby, community organization director in Attendance: TRESA Grier Patient/Family Present: Patient Present: No Patient's Family/Caregiver Present: No Anticipated Discharge 11/20/2022 Discharge Plan: Discharge Destination Details : Family or Friends Home Back-up Discharge Destination: SNF/SNU Potential Barriers to Return to Prior Living (Use comments to be specific): Caregiver limitations;Capacity for self care;Mobility challenge;Communication challenge;Architectural/environmental barrier(s);Home modification challenge;DME issue;Potential need for skills/non-skilled services;Potential need for 24 hour care;Financial resources;Insurance limitations;Psychosocial issues Clinical Barriers : Clinical needs exceed caregiver capacity;Instability Barriers: significant hemiparesis, increased pain, incontinent of bowel and bladder, feeder-soft bite sized, poor insight, no safety awareness, pain decreasing movement, max assist/dependent for selfcare, poor attention, cognitive deficits, DME Recommendations: cee lift, tilt n space wc, drop arm bsc, hospital bed, Services Recommended at Discharge: Home Care and Snf Facility Copping Machine Operator Training: To be scheduled F/U Appointments for Post Discharge: PCP Suicide Risk Assessment: No Concerns identified at this time Pain Management: Pain reported as adequately managed at this time. Medications: Current Facility-Administered Medications: acetaminophen (TYLENOL) tablet 650 mg, 650 mg, Oral, Q8H BERNARDO, Marion Perry MD, 650 mg at 11/09/22 0541 aspirin EC tablet 81 mg, 81 mg, Oral, Once a day, Marion Perry MD, 81 mg at 11/09/22 1011 bismuth subsalicylate (PEPTO BISMOL) 262 MG/15ML suspension 30 mL, 30 mL, Oral, Q6H PRN, Marion Perry MD, 30 mL at 11/05/22 2127 brimonidine (ALPHAGAN) 0.2 % ophthalmic solution 1 drop, 1 drop, Both Eyes, 3 times per day, Urban Perry MD, 1 drop at 11/09/22 1004 calcium carbonate (TUMS) chewable tablet 1,000 mg, 1,000 mg, Oral, Q2H PRN, Marion Perry MD, 1,000 mg at 11/01/22 1313 carvedilol (COREG) tablet 3.125 mg, 3.125 mg, Oral, 2 times per day, Raul Vo MD, 3.125 mg at11/09/22 1008 nicotine (NICODERM CQ) patch 21 mg, 21 mg, Transdermal, Once a day, 21 mg at 11/09/22 1014 AND Check Patch Placement, , Transdermal, 2 times per day, Marion Perry MD, Check Patch Placement at 11/09/22 1014 cholecalciferol (VITAMIN D3) capsule 50,000 Units, 50,000 Units, Oral, Weekly, Soto Meng MD, 50,000 Units at 11/06/22 0924 clopidogrel (PLAVIX) tablet 75 mg, 75 mg, Oral, Once a day, Marion Perry MD, 75 mg at 11/09/22 1008 cyclobenzaprine (FLEXERIL) tablet 5 mg, 5 mg, Oral, TID PRN, Raul Vo MD, 5 mg at 11/04/22 2155 dextrose (GLUTOSE) 40 % oral gel 15 g, 15 g, Oral, PRN, Marion Perry MD dextrose 50 % IV solution 12.5 g, 12.5 g, Intravenous, PRN OR dextrose 50 % IV solution 25 g, 25 g, Intravenous, PRN, Marion Perry MD Fluticasone-Salmeterol (AIRDUO RESPICLICK) 232-14 MCG/ACT inhaler 1 puff, 1 puff, Inhalation, RT BID, Marion Perry MD, 1 puff at 11/09/22 1004 gabapentin (NEURONTIN) capsule 200 mg, 200 mg, Oral, 3 times per day, Marion Perry MD, 200 mgat 11/09/22 1010 glipiZIDE (GLUCOTROL) tablet 5 mg, 5 mg, Oral, Once a day, Soto Meng MD, 5 mg at 11/09/22 1011 glucagon injection reconstituted solution 1 mg, 1 mg, Intramuscular, PRN, Marion Perry MD hemorrhoidal ointment, , Apply externally, TID PRN, Marion Perry MD, Given at 11/09/22 0104 heparin (porcine) injection 5,000 Units, 5,000 Units, Subcutaneous, Q8H BERNARDO, Marion Perry MD,5,000 Units at 11/09/22 0542 ibuprofen (MOTRIN) tablet 200 mg, 200 mg, Oral, Q6H PRN, Carolina Garibay MD ipratropium-albuterol (DUO-NEB) 0.5-2.5 mg/3 mL nebulizer solution 3 mL, 3 mL, Inhalation, Q 4 hours PRN, Marion Perry MD, 3 mL at 11/02/22 2344 ketoconazole (NIZORAL) 2 % cream, , Topical, Once a day, Shorty Menard DPM, Given at 11/08/22 0953 lidocaine (LIDOCARE) 4 % patch 3 patch, 3 patch, Transdermal, Once a day, Carolina Garibay MD, 3 patch at 11/09/22 1007 lidocaine (XYLOCAINE) 1 % injection 8 mL, 8 mL, Other, Once, Carolina Garibay MD losartan (COZAAR) tablet 25 mg, 25 mg, Oral, Once a day, Valencia Johnson MD, 25 mg at 11/09/22 1010 melatonin tablet 9 mg, 9 mg, Oral, Nightly, Marion Perry MD, 9 mg at 11/08/22 214 oxyCODONE (ROXICODONE) immediate release tablet 5 mg, 5 mg, Oral, Q4H PRN, Carolina Garibay MD, 5 mgat 11/07/22 2214 polyethylene glycol (MIRALAX) packet 17 g, 17 g, Oral, BID PRN, Carolina Garibay MD, 17 g at 11/04/22 215 rosuvastatin (CRESTOR) tablet 40 mg, 40 mg, Oral, Once a day, Marion Perry MD, 40 mg at 11/09/22 1009 simethicone (MYLICON) chewable tablet 80 mg, 80 mg, Oral, 4x Daily PRN, Marion Perry MD, 80 mg at 10/31/22 1818 tamsulosin (FLOMAX) 24 hr capsule 0.4 mg, 0.4 mg, Oral, After Breakfast, Marion Perry MD, 0.4mg at 11/09/22 1011 triamcinolone acetonide (KENALOG-40) injection 40 mg, 40 mg, Intra-articular, Once, Carolina Garibay MD Umeclidinium [place] (INCRUSE ELLIPTA) 62.5 MCG/ACT inhaler 62.5 mcg, 1 puff, Inhalation, RT Daily,Marion Perry MD, 62.5 mcg at 11/09/22 1005 Pharmacy: Latest Pharmacy IDT Documentation None Medications: reviewed Medication therapy for pain: reviewed Scheduled non-opoid(s): acetaminophen;gabapentin;lidocaine patch;steroid for pain management As needed non-opioid(s): ibuprofen As needed opioid(s): oxycodone IR Average MEDD: 0-49.99 Pain medication regimen plan: no change recommended Pain Management: 1 dose PRN oxycodone in past 72hr, lidocaine patch, no PRN ibuprofen, gabapentin, routine tylenol Sedation Impact: oxycodone, flexeril, gabapentin Glycemic Control: FBG 121 on glipizide 5mg Medication Schedule Impact- Side Effects/ Behavior: nesina, coreg, flexeril, gabapentin, glipizide,losartan, statin, flomax Special Discharge Medications: glipizide Special Clinical Monitoring Protocols: dvt px - heparin Nursing Team Conference: Bladder Continent: Incontinent Bladder Devices: Adult brief;External catheter Bladder Interventions: Post void residual monitoring Bowel Continent: Incontinent Bowel Devices: Adult brief Pain: Patient verbalizes pain Pain - Functional Impact: Specified Movement/Other (Comment) Aggravating Factors Impacting Pain: None Alleviating Factors Impacting Pain: None Pain Education Provided: Patient Non-Pharmacologic Pain Interventions: Distractions;Rest;Relaxation Emotional/Spiritual Pain Interventions: Emotional Support Pain Consults Initiated or Completed: Other (Comment) Pain Pharmacologic Treatments: Medicated - see MAR Opiate Use Anticipated After Discharge: Yes Nutrition Intake: Oral Nutrition Level of Assistance: Moderate assistance Respiratory O2 Delivery System: None Wound Rx: None Safety Status: Follows instructions;Impulsive;Poor retention Cognitive Orientation: Person;Place;Date Quality of Sleep: Restful Patient-Family barriers to learning: None Is patient on dialysis?: No PT Weekly Progress Note PT Weekly Progress Note by Irlanda Sher PT at 11/06/2022 12:16 PM Author: Irlanda Sher PT Service: Therapy Author Type: Electric Repair Supervisor Filed: 11/06/2022 12:19 PM Date of Service: 11/06/2022 Continuous Improvement Consultant: Irlanda Sher PT (Electric Repair Supervisor) PT Weekly Progress Note Patient Name: Esperanza Chaparro Patient Birthdate: 1955 PT CURRENT FUNCTIONAL STATUS: PT Current Functional Status: PT Current Functional Status: Mr. Chaparro's functional status as follows: POSITIONING: requires tilt in space w/c for trunk, head support, positioning. Half lap tray on leftwith gel heel protector to assist with left UE positioning. SITTING BALANCE: static sitting at edge of mat: max/total assist initially to control push left, retropulsion. With support and cues, can hold at times with mod assist for a few seconds but unable tomaintain prolonged time BED MOBILITY: Sit to/from supine with total assist of two for lift assist at trunk and LE's. Pt with painful leftgroin and back and resists movement at times. Increased education for pt to assist with right side vs pushing. Rolling to left with use of grab bar: min/mod assist to complete motion. To left with max/total assist for left side assist. Use of draw sheet for support due to left shoulder and groin pain with movement. TRANSFERS Sit to/from stand from edge of sweetie-mat with uses of grab bar on right, sheet support under hips. Total assist of 3 to obtain full upright stance. Max left knee block, pt maintains right knee in flexed position. Pushes left with max/total assist to obtain midline positioning. Stand pivot : not safe to attempt. Use of cee w/c to/from bed Trialed use of transfer board w/c to level mat: draw sheet assist, max/total of 3 for left leg block, trunk control due to pushes left and posterior. Car transfer: not safe to attempt GAIT Unsafe to attempt ambulation 10, 50',150'. Static stance from edge of mat as noted above: stood grossly 60 seconds with max/total assist of 3. Ambulates 10' on compliant surfaces : not safe to attempt Unsafe to retrieve object from floor STAIRS Ascends/descends curb : not safe to attempt Acscends/descends 4, 12 steps unsafe to attempt at this time WHEELCHAIR MOBILITY Pt requires tilt in space w/c for upright positioning support, trunk control, head support. Left half lap tray and use of gel heel protector to assist with maintaining positioning. Use of heel protectors at bilateral knee to control pressure on fibular heads. Dependent for up to 150' OUTCOME MEASURES: AGITATED BEHAVIOR SCALE 18 POSTURAL ASSESSMENT OF STROKE : Factors in Goal Achievement: Facilitating Factors: Patient understanding and knowledge Barriers: Pain, Strength limitations, Motor control deficits, Balance deficits and Decreased safetyawareness Date Last Assessed: 11/06/2022 CARE Score Mg: 6: Independent. Walnut provides no assistance with tasks. A device may or may not have been used. 5: Set-up or clean-up assistance. Walnut sets up or cleans up, but does not assist with tasks. Walnut may have assisted prior to or following the activity. 4: Supervision or touching assistance. Walnut provides verbal cues or touching/steadying or contactguard assistance. Assistance may be provided throughout the activity or intermittently. 3: Partial/moderate assistance. Walnut does less than half the effort. Walnut lifts, holds, or supports trunk or limbs, but provides less than half the effort. 2: Substantial/maximal assistance. Walnut does more than half the effort. Walnut lifts or holds trunk or limbs, and provides more than half the effort. 1: Dependent. Walnut does all of the effort, or the assistance of two or more helpers is required for the patient to complete the activity. -: Inconsistent or incomplete documentation Activity not attempted values: 7: Patient refused 9: Not applicable - Not attempted and the patient did not perform this activity prior to the current illness, exacerbation, or injury. 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: Goal Status on Admission Current Status Car Transfer - CARE Score: 88 (10/29/221746 : Irlanda Sher PT) Car Transfer - CARE Score: 88(11/06/221217) Walk 10 Feet LTG: Dependent (pt will ambulate 10ft with hemiaide and mod/max of two) Walk 10 Feet -CARE Score: 88 (10/29/221746 : Irlanda Sher PT) Walk 10 Feet - CARE Score: 88 (11/06/221217) Walk 50 Feet with Two Turns - CARE Score: 88 (10/29/221746 : Irlanda Sher PT) Walk 50 Feet with Two Turns - CARE Score: 88 (11/06/221217) Walk 150 Feet - CARE Score: 88 (10/29/221746 : Irlanda Sher PT) Walk 150 Feet - CARE Score: 88 (11/06/221217) Walking 10 Feet on Uneven Surfaces - CARE Score: 88 (10/29/221746 : Irlanda Sher PT) [id number] Feet on Uneven Surfaces - CARE Score: 88 (11/06/221217) 1 Step (Curb) - CARE Score: 88 (10/29/221746 : Irlanda Sher PT) 1 Step (Curb) - CARE Score: 88 (11/06/22 121) 4 Steps - CARE Score: 88 (10/29/221746 : Irlanda Sher PT) 4 Steps - CARE Score: 88 () 12 Steps - CARE Score: 88 (10/29/221746 : Irlanda Sher PT) 12 Steps - CARE Score: 88 (11/06/221217) Picking Up Object - CARE Score: 88 (10/29/221746 : Irlanda Sher PT) Picking Up Object - CAREScore: 88 (11/06/221217) Wheel 50 Feet with Two Turns LTG: Partial/moderate assistance (pt propel w/c 60ft with right UE/LE and mod assist for guidance.) Wheel 50 Feet with Two Turns - CARE Score: 88 (10/29/221746 : Irlanda Sher PT) Wheel 50 Feet with Two Turns - CARE Score: 1 (11/06/221217) Wheel 150 Feet - CARE Score: 88 (10/29/221746 : Irlanda Sher PT) Wheel 150 Feet - CARE Score: 1 (11/06/221217) Additional Goals & Status: N/A PT Other Residential Goals Flowsheet Row Most Recent Value Other PT Residential Goals Other Goals - Residential Residential 1, Offset Lithographic 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 2, Residential 3, Offset Lithographic 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 4 Filed on: 10/29/20221748 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 Lithographic 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 Goal 1 w/c to/from level surface with transfer board and mod assist Filed on: 10/29/20221748 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 Lithographic 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 Goal 1 Status Established Filed on: 10/29/20221748 Other Residential Goal 2 sit to stand to hemiaide and mod assist of two Filed on: 10/29/20221748 Other Residential Goal 2 Status Established Filed on: 10/29/20221748 Other Residential Goal 3 tolerate upright position in regular w/c vs tilt in space w/c when out of bed Filed on: 10/29/20221748 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 Lithographic 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 Goal 3 Status Established Filed on: 10/29/20221748 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 Lithographic 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 Goal 4 sit to/from supine with mod assist. Filed on: 10/29/20221748 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 Lithographic 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 Goal 4 Status Established Filed on: 10/29/20221748 PT Short Term Goal 1: Details: Sit to/from supine with max assist Expected Achievement Date: 11/13/2022 Goal Status: Not Achieved PT Short Term Goal 2: Details: W/c to/from level surface with use of transfer board and max assist Expected Achievement Date: 11/13/2022 Status: Not Achieved PT Short Term Goal 3: Details: Sit to cable tv installer parallel bars with max assist. Expected Achievement Date: 11/13/2022 Status: Not Achieved PT Short Term Goal 4: Details: Pt ambulate 5ft in parallel bars with mod/max assist of two. Expected Achievement Date: 11/13/2022 Goal Status: Not Achieved Duration Expiration Date: 11/18/2022 IRLANDA SHER, PT 11/06/2022 OT Weekly Progress Note OT Weekly Progress Note by Luke Robertson OT at 11/06/2022 3:44 PM Author: Luke Robertson OT Service: -- Author Type: Occupational Therapist Filed: 11/06/2022 3:50 PM Date of Service: 11/06/2022 Continuous Improvement Consultant: Luke Robertson OT (Occupational Therapist) Occupational Therapy Weekly Progress Note Patient Name: Esperanza Chaparro Patient Birthdate: 1955 OT Current Functional Status: Mr Chaparro'javier current functional status is as follows: EATING: supervision and cues especially for visual scanning to the left; pt has some spillage on L side of mouth and residual food on left side at times ORAL HYGIENE: supervision and cues for thoroughness TOILETING: dependent, bed level for safety BATHING: max assist for sponge bathing, bed level; pt is able to assist with washing face and chest; assist needed for all other bathing tasks UB DRESSING: max assist; pt is able to assist with doffing shirt from L arm and for pulling shirt down over trunk; assist needed for all other aspects LB DRESSING: dependent, bed level for safety PUTTING ON/TAKING OFF FOOTWEAR: dependent, assist needed for all aspects ROLL LEFT AND RIGHT: dependent SIT TO LYING: dependent LYING TO SITTING: dependent SIT TO STAND: dependent BED TO CHAIR TRANSFER: dependent, cee with two person assist TOILET TRANSFER: NT b/c of safety concerns with balance Shower transfers: NT b/c of safety concerns with balance Mr Chaparro frequently reports pain in L UE especially during ADLs and transfers. He does not have any active movement in L UE. Mr Chaparro presents with left visual inattention (improving somewhat). He would benefit from continuedintensive OT to maximize functional independence and safety. Facilitating Factors in Goal Achievement: Patient compliance, Patient motivation, Use of compensatory strategies, Support of family or caregiver, Improved cognition and Improved function Barriers to Goal Achievement: Strength limitations, ROM limitations, Balance deficits, Motor control deficits, Diminished endurance, Pain, Cognitive deficits and Visual deficits Patient needs assistance with the following activities: Activities of daily living, Going out in the community, Memory, Use of bathroom equipment, Positioning, Sitting balance, Use of patient wine pasteurizer and Rolling CARE Score Mg: 6: Independent. Walnut provides no assistance with tasks. A device may or may not have been used. 5: Set-up or clean-up assistance. Walnut sets up or cleans up, but does not assist with tasks. Walnut may have assisted prior to or following the activity. 4: Supervision or touching assistance. Walnut provides verbal cues or touching/steadying or contactguard assistance. Assistance may be provided throughout the activity or intermittently. 3: Partial/moderate assistance. Walnut does less than half the effort. Walnut lifts, holds, or supports trunk or limbs, but provides less than half the effort. 2: Substantial/maximal assistance. Walnut does more than half the effort. Walnut lifts or holds trunk or limbs, and provides more than half the effort. 1: Dependent. Walnut does all of the effort, or the assistance of two or more helpers is required for the patient to complete the activity. -: Inconsistent or incomplete documentation Activity not attempted values: 7: Patient refused 9: Not applicable - Not attempted and the patient did not perform this activity prior to the current illness, exacerbation, or injury. 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: Goal Status on Admission Current Status Eating - CARE Score: 4 (10/29/22 1021 : Luke Robertson OT) Eating - CARE Score: 4 (11/06/22 1542) Oral Hygiene - CARE Score: 3 (10/29/22 1021 : Luke Robertson OT) Oral Hygiene - CARE Score: 4 (11/06/22 1542) Toileting Hygiene LTG: Partial/moderate assistance Toileting Hygiene - CARE Score: 1 (10/29/22 1021: Luke Robertson OT) Toileting Hygiene - CARE Score: 1 (11/06/22 1542) Shower/Bathe Self LTG: Partial/moderate assistance Shower/Bathe Self - CARE Score: 1 (10/29/22 1021: Luke Robertson OT) Shower/Bathe Self - CARE Score: 2 (11/06/22 1542) Upper Body Dressing LTG: Partial/moderate assistance Upper Body Dressing - CARE Score: 1 (10/29/22 1021 : Luke Robertson OT) Upper Body Dressing - CARE Score: 2 (11/06/22 1542) Lower Body Dressing LTG: Partial/moderate assistance Lower Body Dressing - CARE Score: 1 (10/29/22 1021 : Luke Robertson OT) Lower Body Dressing - CARE Score: 1 (11/06/22 1542) Putting On/Taking Off Footwear LTG: Partial/moderate assistance Putting On/Taking Off Footwear - CARE Score: 1 (10/29/22 1021 : Luke Robertson OT) Putting On/Taking Off Footwear - CARE Score: 1 (11/06/22 1542) Roll Left and Right - CARE Score: 1 (10/29/22 1021 : Luke Robertson OT) Roll Left and Right - CARE Score: 1 (11/06/22 1542) Sit to Lying - CARE Score: 1 (10/29/22 1021 : Luke Robertson OT) Sit to Lying - CARE Score: 1 (11/06/22 1542) Lying to Sitting on Side of Bed - CARE Score: 1 (10/29/22 1021 : Luke Robertson OT) Lying toSitting on Side of Bed - CARE Score: 1 (11/06/22 1542) Sit to Stand - CARE Score: 88 (10/29/22 1021 : Luke Robertson OT) Sit to Stand - CARE Score:1 (11/06/22 1542) Chair/Rvr-rm-Ropmo Transfer LTG: Partial/moderate assistance Chair/Knx-wp-Gcwif Transfer - CARE Score: 88 (10/29/22 1021 : Luke Robertson, OT) Chair/Myk-qx-Anbkb Transfer - CARE Score: 1 (11/06/22 154) Toilet Transfer LTG: Partial/moderate assistance Toilet Transfer - CARE Score: 88 (10/29/22 1021 : Luke Robertson OT) Toilet Transfer - CARE Score: 88 (11/06/22 154) Additional Goals & Status: N/A OT Short Term Goal 1: Focus: Toileting Hygiene Level of Assistance to Meet Short Term Goal: Physical assistance 50%-74% Expected Achievement Date: 11/17/2022 Goal Status: Not Achieved OT Short Term Goal 2: Focus: Shower/Bathe Level of Assistance to Meet Short Term Goal: Physical assistance 50%-74% Expected Achievement Date: 11/17/2022 Goal Status: Achieved OT Short Term Goal 3: Focus: Upper Body Dressing Level of Assistance to Meet Short Term Goal: Physical assistance 50%-74% Expected Achievement Date: 11/09/2022 Goal Status: Achieved OT Short Term Goal 4: Focus: Lower Body Dressing Level of Assistance to Meet Short Term Goal: Physical assistance 50%-74% Expected Achievement Date: 11/17/2022 Goal Status: Not Achieved OT Short Term Goal 5: Focus: Toilet Transfer Level of Assistance to Meet Short Term Goal: Physical assistance 50%-74% Expected Achievement Date: 11/11/2022 Goal Status: Not Achieved OT Short Term Goal 6: Focus: Shower/Bathe Level of Assistance to Meet Short Term Goal: Physical assistance 25%-49% Expected Achievement Date: 11/13/2022 Goal Status: Established OT Short Term Goal 7: Focus: Upper Body Dressing Level of Assistance to Meet Short Term Goal: Physical assistance 25%-49% Expected Achievement Date: 11/13/2022 Goal Status: Established LUKE ROBERTSON OT 11/06/2022 OIL GAS AND PIPE TESTER Weekly Progress Note OIL GAS AND PIPE TESTER Weekly Progress Note by ST Tierney at 11/06/2022 2:09 PM Author: ST Tierney Service: Therapy Author Type: Speech and Language Pathologist Filed: 11/06/2022 2:25 PM Date of Service: 11/06/2022 Continuous Improvement Consultant: ST Tierney (Speech and Language Pathologist) Speech Language Pathologist Weekly Progress Note Patient Name: Esperanza Chaparro Patient Birthdate: 1955 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 Chaparro is a 67 year old male referred to speech therapy for evaluation and treatment following recent hospitalization with a diagnosis of CVA. Patient presented to the hospital initially on 10/12/22 due to a peritonsillar abscess, reporting dysphagia symptoms with liquids and solids. While there, he developed left sided weakness with confirmation of CVA. He was living with his sister prior to admission and was independent with ADLs and IADLs and driving. 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 Current functional status is as follows: SWALLOWING: Current diet: SOFT & BITE SIZED with THIN LIQUIDS (IDDSI 6/0) Mild spillage and oral residue noted on the left side. COMMUNICATION: COMPREHENSION- SUPERVISION. Patient is able to comprehend information regarding basic needs over 90% of the time. Increased difficulty noted with comprehension of complex or abstract information. EXPRESSION- SUPERVISION. Patient is able to express information regarding basic needs over 90% of the time. Increased difficulty noted with comprehension of complex or abstract information. Patient presents with mild dysarthria but mostly intelligible speech. COGNITION: PROBLEM-SOLVING- Improved to MINIMAL ASSISTANCE. Patient is able to solve routine problems at least75% of the time. Improvement noted in ability to provide appropriate responses for basic verbal problem-solving situations. Increased assistance required for multi-step sequencing and mathematical reasoning tasks. MEMORY: MODERATE ASSISTANCE. Patient is able to recognize and remember people, routines, and requests 50-74% of the time. SOCIAL INTERACTION: MINIMAL ASSISTANCE. Patient presents with frequent fatigue and pain which interferes with performance in therapy. He requires frequent encouragement to continue with participationin therapy tasks. PROGRESS 11/02/22: Evaluation was completed on 10/29/22. All goals remain appropriate to continue at this time due to limited number of sessions thus far. Patient is distracted by pain and discomfort when up in wheelchair during therapy sessions. He requires frequent encouragement for task persistence. Patient requires assistance with tray set-up and at least some degree of supervision/assistance with feeding due to left visual impairment and left side weakness. PROGRESS 11/06/22: Patient is making good progress towards his speech therapy goals. He has participated in discussion this week regarding stroke risk factors and prevention. He has shown improved ability to solve basic problem-solving situations. He is using compensatory strategies with minimal cueing to locate information on the left side for visual matching tasks. Patient is managing current diet well and would benefit from further assessment to determine safety of upgraded solid textures at this time. RECOMMENDATION: Mr. Chaparro will benefit from continued speech therapy services to address the following plan of care: patient and family education; use of compensatory strategies; interventions for improved strength and movement of left facial musculature; interventions for improved swallowing function to manage least restrictive solid and liquid consistencies; and cognitive retraining for functional reasoning and memory skills to increase safety and independence at discharge. The Patient: [ ]is able to state 2 risk factors without VCs prior to discharge [X ]requires cues to recall 2 stroke risk factors [ ] Is unable to state stroke risk factors due to communication or cognitive deficits Facilitating Factors in Goal Achievement: Patient compliance, Improvement in cognitive skills, Progress to date, Increased visual acuity/attention and Support of other(s) Barriers to Goal Achievement: Pain, Other (comment) and Visual inattention/neglect (cognition) Date Last Assessed: 11/06/2022 Offset Lithographic 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 Goals: Goal Status on Evaluation Current Progress Towards Goal Level of Assistance to Meet Problem Solving: Min assist (10-24%) Problem Solving Details: Improve functional problem-solving skills to minimal assistance to solve routine problems at least 75% of the time. Problem Solving Expected Achievement Date: 11/25/22 Moderate assistance Achieved at minimal assistance Level of Assistance to Meet Memory: Min assist (10-24%) Memory Details: Improve functional memory skills to minimal assistance to recognize and remember people, routines, and requests at least 75% of the time. Memory Expected Achievement Date: 11/25/22 Moderate assistance Continue to address Swallowing Details: Safely manage regular texture solids and thin liquids with no clinical signs ofdysphagia. Swallowing Expected Achievement Date: 11/25/22 Soft and Bite Sized/Thin liquids Continue to address Additional Goal Status: N/A OIL GAS AND PIPE TESTER Short Term Goals: Problem Solving: Details: Complete functional problem-solving/reasoning tasks with 70% accuracy. REVISED 11/06/22 : Complete functional problem-solving/reasoning tasks with 80% accuracy. Expected Achievement Date: 11/13/2022 Goal Status: Achieved Memory: Level of Assistance to Meet Memory: Total assist (75% or more) Details: Complete short term memory tasks with 70% accuracy. REVISED 11/06/22: Complete short term memory tasks with 80% accuracy. Expected Achievement Date: 11/09/2022 Goal Status: Achieved Additional Cognition: Details: Participate in further assessment of cognitive skills using a standardized measure. Expected Achievement Date: 11/09/2022 Goal Status: Not Achieved Swallowing: Details: Safely manage current diet and thin liquids using compensatory strategies with no clinicalsigns of dysphagia. Expected Achievement Date: 11/09/2022 Goal Status: Achieved Other STG 1: Focus: Swallowing Details: Participate in NMES (PENS) to stimulate left facial musculature. Expected Achievement Date: 11/13/2022 Goal Status: Not Achieved Other STG 2: Focus: Additional Cognition Level of Assistance to Meet Other STG 2: Independent Details: Recall 2 factors for stroke prevention independently. Expected Achievement Date: 11/13/2022 Goal Status: Partially Achieved Other STG 3: Focus: Additional Cognition Level of Assistance to Meet Other STG 3: Min assist (10-24%) Details: Complete tasks to target left attention with minimal assistance. Expected Achievement Date: 11/13/2022 Goal Status: Partially Achieved Other STG 4: Focus: Swallowing Details: Participate in trials to assess for safety of diet upgrade. Expected Achievement Date: 11/13/2022 Goal Status: Established Duration Expiration Date: 11/25/[address] 11/06/2022 Respiratory Team Conference: Nutrition Team Conference: Dietary Orders (From admission, onward) Start Ordered 10/29/22 1700 Nutritional supplement Oral 3 times daily with meals Comments: Send vanilla ensure high protein TID End/Expires: Until Specified Question Answer Comment Administration Route: Oral Place order in third constitution party system. Done 10/29/22 1346 10/28/222111 Adult Diet Regular; 6 Soft & Bite-Sized (NDD III); 0 Thin (All Liquids) Diet effective now End/Expires: Until Specified References: IDDSI Website Question Answer Comment Diet Type: Regular Diet Texture: 6 Soft & Bite-Sized (NDD III) Liquid Consistency: 0 Thin (All Liquids) Place order in third constitution party system. Done 10/28/222110 Height: 5' 11 (180.3 cm) Admit Weight: 228 lb 4 oz (103.5 kg) Current Weight: 225 lb (102.1 kg) Body mass index is 31.38 kg/m??. Calorie Count: Plan of Care - Nutrition Care Plans 1 Author: Luke Elizalde RD Service: -- Author Type: Registered Dietitian Filed: 11/05/2022 12:51 PM Date of Service: 11/05/2022 12:51 PM Status: Signed Continuous Improvement Consultant: Luke Elizalde RD (Registered Dietitian) Problem: Inadequate Oral Intake Description: Oral food/beverage intake that is less than established reference standards or recommendations based on physiological needs. Related to: Decreased ability to consume sufficient energy, e.g., increased nutrition needs due to prolonged catabolic illness As evidenced by: estimated protein needs of 90-95 g/day. Goal: Improve Nutritional Status Outcome: Progressing Flowsheets (Taken 10/29/2022 1338) Meals and Snacks: (soft and bite sized (6) diet) General healthful diet Medical Food Supplement Therapy: (vanilla Ensure high protein TID) Commercial beverage/Oral nutrition supplement Wound: Wound Rx: None Cosigned by Carolina Garibay MD at 11/11/2022 8:57 AM CDT Associated attestation - Carolina Garibay MD - 11/11/2022 9:57 AM EDT A team conference was held on 11/09/2022 and included members of the multidisciplinary team identified in the attendance section of this note. Issues related to Mr. Sainis status include; Patient Active Problem List Diagnosis Cerebrovascular accident Chronic obstructive pulmonary disease Coronary arteriosclerosis Primary hypertension Dysphagia Mr. Mann progress toward rehabilitation goals, impediments to attaining these goals, and associated revisions to the treatment plans and goals were discussed by the team. Details of this multidisciplinary process are included below. Issues of particular significance at this time regarding Mr. Mann progress towards rehabilitation goals and treatment plan include: Discussed about functional gains , discharge planning ,DME , follow up therapies and current medical condition during team conference . As discussed during this team conference, I concur with the decisions set forth by the members of the multidisciplinary team. Mr. Chaparro continues to require frequent physician visits and 24 hours per day acute rehabilitation nursing care in order to meet medical needs and progress toward the achievement of the rehabilitation goals. CAROLINA GARIBAY MD 11/11/2022 8:57 AM CDT * PT Treatment Note - Irlanda Sher PT - 11/09/2022 9:00 AM CDT PT Treatment Patient Name: Esperanza Chaparro Patient Birthdate: 1955 Patient Subjective Report - pt reported feeling ok and ready for therapy. 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 Pain Assessment Pain Context: Therapy Assessment Prior to Treatment (11/09/22899) Pain Assessment: NRS 0-10 (11/09/22899) Pain Score: 7 - Severe Pain (11/09/22899) Pain Severity - NRS (Calculated): Severe (11/09/22899) Pain Location: Groin, Hip, Shoulder (11/09/22899) Pain Orientation: Left (11/09/22899) Pain Descriptors: Aching, Sharp (11/09/22899) Pain Onset: Ongoing (11/09/22899) Pain Frequency: With activity (11/09/22899) Pre-therapy pain intervention required: Patient expressed pain is tolerable/able to proceed (11/09/22899) Pain Interventions Non-Pharmacologic Pain Interventions: Position/Reposition, Exercise/Activity, Distractions (11/09/22945) Emotional/Spiritual Pain Interventions: Emotional Support (11/09/22945) Therapeutic Activities and Neuromuscular Re-education: Pt up in chair upon arrival. Pt focused on lost blue tooth and aoc director combat plans officer cord. Located blue tooth and aoc director combat plans officer cord. In therapy gym: sit to stand from tilt in space w/c with use of right UE on parallel bar: sling to support left UE. max support anteriorly to position and block left leg, lift assist. Max x2 bilateral trunk for lift assist. Pt pushes left and requires max cues for upright trunk posture. With cues and time pt does pull trunk up. Varies from unable to get all the way up, to static stance x5-10 seconds. Decreased midline orientation, pushes left, decreased right knee extension as well- holds in flexed position. Use of sit to stand employment trainer with 40lb lift assist. Use of right UE on anterior grab bar to assist with pull up to stance. Mod on left and min on right to obtain full upright posture. Cues for wt shift right/obtain midline, right knee extension. Once up stands briefly then requires sit due to dizziness and reported left groin pain. Repeated x4. Repositioned into tilt in space w/c with use of half lap trap on left, gel heel protector under left elbow for pressure relief/positioning, foam ankle protectors on lateral leg rests to control pressure at fibular head. PT Treatment Outcomes:: Safety device reapplied and Patient tolerated session fair PT Summary:: Mr. Chaparro tolerated the session fair due to pain in left groin with mobility, trialing upright stance. He will continue to benefit from intensive therapy to maximize functional gains. PT Summary Plan of Care: Continue with current plan of care Pain Evaluation and Follow-up Response to Therapy Interventions: Other (comment) (tolerated the session. with movement still withleft shoulder and groin pain. improves once positioned in tilt in space w/c) (11/09/22945) Pain Reassessment: 6 (11/09/22945) Therapy Minutes Individual Concurrent Co-Treat Individual (PT) Time In : 0900 Time Out: 46 Total Time with Patient (Min): 46 min IRLANDA SHER, PT 11/09/2022 * Plan of Care - Jessica Mccann RN - 11/09/2022 12:53 AM CDT Problem: Discharge Planning Goal: Discharge to home or other facility with appropriate resources Outcome: Progressing Flowsheets (Taken 10/31/2022 2154) Discharge to home or other facility with appropriate resources: Identify barriers to discharge with patient and caregiver Arrange for needed discharge resources and transportation as appropriate Identify discharge learning needs (meds, wound care, etc) Refer to Case Management Department for Coordinating discharge planning for if the patient needs post-hospital services based on physician order or complex needs related to functional status, cognitive ability or social support system Problem: Fall Safety: [place] Precautions Goal: Free from fall injury Outcome: Progressing Flowsheets (Taken 11/01/2022 0500 by Juan C Sahu RN) Free from fall injury: Perform fall risk assessment and identifiers in place (as applicable) Frequent rounding/monitoring Lighting appropriate Bed low, locked 2 side rails Use of bed/chair alarm Put call light within reach and teach how to call for assistance, respond to call light immediately Toilet magnet in place ([facility] Only) Offer frequent toileting Assess for environmental or other risks Fall/safety education for patient/family/SO Problem: Pain Goal: Patient's Pain/Discomfort is Manageable Outcome: Progressing Flowsheets (Taken 10/31/2022 0454) Patient's Pain/Discomfort is Manageable: Assess pain level Include patient/family/caregiver in decisions related to pain management Provide Emotional/Spiritual Support Offer non-pharmocological pain management interventions Pain Consult Administer medications as ordered Reassess patient's response and tolerance to discomfort * Non-treatment Therapy Note - Mehdi Goldstein OT - 11/08/2022 2:55 PM CDT Prior to team conference, the Primary Therapist Luke Robertson OT and I have communicated regarding current patient status, progress towards goals, and modifications to plan of care, as appropriate. MEHDI GOLDSTEIN OT * OIL GAS AND PIPE TESTER Treatment Note - Matt Plascencia CCC-OIL GAS AND PIPE TESTER - 11/08/2022 9:00 AM CDT Speech Language Pathologist Treatment Patient Name: Esperanza Chaparro Patient Birthdate: 1955 Patient Subjective Report - My hands don't work so well. Pain Assessment Pain Context: Therapy Assessment Prior to Treatment (11/08/22 1544) Pain Assessment: NRS 0-10 (11/08/22 09) Pain Score: 0 - No pain (11/08/22 09) Pain Severity - NRS (Calculated): No pain (11/08/22 0900) Cognitive Communication: Immediate memory, Short-term memory, Processing information of increased length or complexity, Semi-complex to complex attention, Task persistence, Self monitoring, Speed of processing, Planning and sequencing, Organization, Verbal problem solving and Visual strategies Dysphagia Treatment: Swallow strategy training, Oral care and Dysphagia diet training Recommended diet: IDDSI 6 - Soft & Bite-Sized / NDD3, Pills Whole in IDDSI 4 (Pureed / Extremely Thick) and IDDSI 0 - Thin Liquids / All Liquids Compensatory swallowing techniques: Small bites, Small sips, Eat slowly-control rate, Seated upright with all PO intake, Monitor oral spillage, Oral care post PO intake and Other (comment) (Avoid large bore straw) Level of supervision at meals recommended: 1 to 1 assistance due to cognitive or motor deficits Patient/Caregiver Training: Completed with patient, Therapy goals and treatment plan, Oral hygiene,Cognitive strategies, Cognitive Communication Disorder, Dysphagia, Swallow strategies and Current diet Were respiratory Interventions provided?: No ST Narrative:: 1. Patient was seen for therapy in his room, reclined in bed; alert and cooperative with therapy tasks. 2. Patient completed a left visual attention task on the iPad (Constant Therapy Find the Same Symbol ). He completed level 6 with 100% accuracy given min cues for left neglect. 3. Patient re-educated on stroke s/s via [employer]. Pt required moderate cues for teachback. Pt educated on risk factors, including smoking. Pt became mildly agitated when smoking was mentioned as a contributing factor. Pt required moderate problem solving assist to rationalize why smoking would increase risk for a stroke. Pt firmly stated that smoking helps decrease his stress, which also contributes to a stroke. OIL GAS AND PIPE TESTER provided mod assist for alternative stress reducers. 4. Patient provided appropriate responses for functional problem-solving questions with 80% accuracy. 5. Patient expressed frustration that his hands don't work well. Pt stated he can't even make a phone call. Pt independently generated verbal sequential steps to operate his smart phone in order to make an outgoing call at the end of our session. Upon end of session, OIL GAS AND PIPE TESTER followed pt's directions and pt was successfully talking with his mother, and remained in his room with call light left within reach. ST Session Outcomes: Patient/family education progressing, Progressing toward STGs, Tolerated treatment well and Minimal cues during session ST Summary Plan of Care: Continue with current plan of care Pain Evaluation and Follow-up Pain Reassessment: 0, No pain (11/08/22943) Nursing notified of patient's pain assessment: Not indicated - pain score 2 or less (11/08/22943) Therapy Minutes Individual Concurrent Co-Treat Time In : 899 Time Out: 944 Breaks/Pauses (Min): 0 mins Total Time with Patient (Min): 45 min Missed Minutes : 0 MATT PLASCENCIA CCC-SLP 11/08/2022 * Plan of Care - Anne Marie Boyd RN - 11/08/2022 7:40 AM CDT Problem: Infection Goal: Absence of infection and prevention of transmission during hospitalization Outcome: Progressing Problem: Knowledge Deficit Goal: Patient and/or family demonstrate readiness to learn Outcome: Progressing Goal: Patient and/or family verbalizes understanding of education, and/or performs desired skill Outcome: Progressing Problem: Discharge Planning Goal: Discharge to home or other facility with appropriate resources Outcome: Progressing Goal: client services assistant will develop a plan to decrease their burden and enhance comfort in role Outcome: Progressing Problem: Delirium Goal: Prevent and Manage Delirium Outcome: Progressing Problem: Fall Safety: [place] Precautions Goal: Free from fall injury Outcome: Progressing Problem: Fall Huddle Goal: Free from Fall Injury Outcome: Progressing Problem: Fall Prevention: Fatigue Bundle Goal: Patient will be free from Fall Injury Outcome: Progressing Problem: Fall Safety: [place] Precautions Goal: Free from fall injury Outcome: Progressing Problem: Fall Huddle Goal: Free from Fall Injury Outcome: Progressing Problem: Pain Goal: Patient's Pain/Discomfort is Manageable Outcome: Progressing Problem: Knowledge Deficit Goal: Patient/family/caregiver demonstrates understanding of disease process, treatment plan, medications, and discharge instructions Outcome: Progressing Problem: Potential for Compromised Skin Integrity Goal: Skin integrity is maintained or improved Outcome: Progressing Goal: Nutritional status is improving Outcome: Progressing Problem: Urinary Incontinence Goal: Perineal skin integrity is maintained or improved Outcome: Progressing Problem: Bowel Incontinence Goal: Perineal Skin Integrity is Maintained or Improved Outcome: Progressing Problem: Fall Prevention: Neglect/Hemiparesis Bundle Goal: Patient will be free from Fall Injury Outcome: Progressing * Plan of Care - Jessica Mccann RN - 11/08/2022 1:38 AM CDT Problem: Discharge Planning Goal: Discharge to home or other facility with appropriate resources Outcome: Progressing Flowsheets (Taken 10/31/2022 0454) Discharge to home or other facility with appropriate resources: Identify barriers to discharge with patient and caregiver Arrange for needed discharge resources and transportation as appropriate Identify discharge learning needs (meds, wound care, etc) Refer to Case Management Department for Coordinating discharge planning for if the patient needs post-hospital services based on physician order or complex needs related to functional status, cognitive ability or social support system Problem: Fall Safety: [place] Precautions Goal: Free from fall injury Outcome: Progressing Flowsheets (Taken 11/01/2022 0500 by Juan C Sahu RN) Free from fall injury: Perform fall risk assessment and identifiers in place (as applicable) Frequent rounding/monitoring Lighting appropriate Bed low, locked 2 side rails Use of bed/chair alarm Put call light within reach and teach how to call for assistance, respond to call light immediately Toilet magnet in place ([facility] Only) Offer frequent toileting Assess for environmental or other risks Fall/safety education for patient/family/SO Problem: Pain Goal: Patient's Pain/Discomfort is Manageable Outcome: Progressing Flowsheets (Taken 10/31/2022 0454) Patient's Pain/Discomfort is Manageable: Assess pain level Include patient/family/caregiver in decisions related to pain management Provide Emotional/Spiritual Support Offer non-pharmocological pain management interventions Pain Consult Administer medications as ordered Reassess patient's response and tolerance to discomfort * OIL GAS AND PIPE TESTER Treatment Note - [facility] - 11/07/2022 12:56 PM CDT Speech Language Pathologist Treatment Patient Name: Esperanza Chaparro Patient Birthdate: 1955 Patient Subjective Report - Cognitive Communication: Immediate memory, Short-term memory, Processing information of increased length or complexity, Semi-complex to complex attention, Task persistence, Self monitoring, Speed of processing, Planning and sequencing, Organization, Verbal problem solving and Visual strategies Dysphagia Treatment: Swallow strategy training, Oral care and Dysphagia diet training Recommended diet: IDDSI 6 - Soft & Bite-Sized / NDD3, Pills Whole in IDDSI 4 (Pureed / Extremely Thick) and IDDSI 0 - Thin Liquids / All Liquids Compensatory swallowing techniques: Small bites, Small sips, Eat slowly-control rate, Seated upright with all PO intake, Monitor oral spillage, Oral care post PO intake and Other (comment) (Avoid large bore straw) Level of supervision at meals recommended: 1 to 1 assistance due to cognitive or motor deficits Patient/Caregiver Training: Completed with patient, Therapy goals and treatment plan, Oral hygiene,Cognitive strategies, Cognitive Communication Disorder, Dysphagia, Swallow strategies and Current diet ST Narrative:: Mr. Chaparro was seen for therapy in the dining room, reclined in tilt in space wheelchair; alert and cooperative with therapy tasks, but distracted by both internal and external events throughout. Frequent requests for repositioning. He completed the followin. Recalled 3/3 therapies and basic goals of each with minimal assistance. Could state 1-2 activities completed in each with minimal assistance. 2. Memory: patient required encouragement to review current medication list as he repeatedly referred to what he was taking at home and did not appear to understand that it may be different with mostrecent hospitalization. Recalled the purpose of 08/25 of his current medications. 3. Problem solving/reasoning: answered functional problem-solving questions regarding safe vs unsafe behaviors with 75% accuracy, minimal cues. Able to generate 2 additional safety situations that could arise in the hospital or at home regarding physical safety with moderate assistance. Participated in brainstorming 1-2 solutions to the identified unsafe situations to make them safe . Unable to verbalize any situations in the past week that may have been unsafe without OIL GAS AND PIPE TESTER suggesting the scenario. Determined that he occasionally feels things are more safe than his therapists or nursing would. Participated in discussion to look at the situation from another standpoint and why others maysee things differently than he might. 4.Patient returned to his room, nursing present to assist him back to bed. ST Session Outcomes: Patient/family education progressing, Progressing toward STGs, Tolerated treatment well and Minimal cues during session ST Summary Plan of Care: Continue with current plan of care Therapy Minutes Individual Concurrent Co-Treat Time in: 1300 Time out: 1346 Total minutes: 46 Missed minutes: +1 THEIN, ATIF J., ST 11/07/2022 * Plan of Care - Anne Marie Boyd RN - 11/07/2022 9:51 AM CDT Problem: Infection Goal: Absence of infection and prevention of transmission during hospitalization Outcome: Progressing Problem: Knowledge Deficit Goal: Patient and/or family demonstrate readiness to learn Outcome: Progressing Goal: Patient and/or family verbalizes understanding of education, and/or performs desired skill Outcome: Progressing Problem: Discharge Planning Goal: Discharge to home or other facility with appropriate resources Outcome: Progressing Goal: client services assistant will develop a plan to decrease their burden and enhance comfort in role Outcome: Progressing Problem: Delirium Goal: Prevent and Manage Delirium Outcome: Progressing Problem: Fall Safety: [place] Precautions Goal: Free from fall injury Outcome: Progressing Problem: Fall Huddle Goal: Free from Fall Injury Outcome: Progressing Problem: Fall Prevention: Fatigue Bundle Goal: Patient will be free from Fall Injury Outcome: Progressing Problem: Fall Safety: [place] Precautions Goal: Free from fall injury Outcome: Progressing Problem: Fall Huddle Goal: Free from Fall Injury Outcome: Progressing Problem: Pain Goal: Patient's Pain/Discomfort is Manageable Outcome: Progressing Problem: Knowledge Deficit Goal: Patient/family/caregiver demonstrates understanding of disease process, treatment plan, medications, and discharge instructions Outcome: Progressing Problem: Potential for Compromised Skin Integrity Goal: Skin integrity is maintained or improved Outcome: Progressing Goal: Nutritional status is improving Outcome: Progressing Problem: Urinary Incontinence Goal: Perineal skin integrity is maintained or improved Outcome: Progressing Problem: Bowel Incontinence Goal: Perineal Skin Integrity is Maintained or Improved Outcome: Progressing Problem: Fall Prevention: Neglect/Hemiparesis Bundle Goal: Patient will be free from Fall Injury Outcome: Progressing * Plan of Care - Hardeep Darby RN - 11/06/2022 10:36 PM CDT Problem: Knowledge Deficit Goal: Patient and/or family demonstrate readiness to learn Outcome: Progressing Goal: Patient and/or family verbalizes understanding of education, and/or performs desired skill Outcome: Progressing Problem: Pain Goal: Patient's Pain/Discomfort is Manageable Outcome: Progressing Problem: Potential for Compromised Skin Integrity Goal: Skin integrity is maintained or improved Outcome: Progressing Goal: Nutritional status is improving Outcome: Progressing * OT Weekly Progress Note - Luke Robertson, OT - 11/06/2022 3:44 PM CDT Occupational Therapy Weekly Progress Note Patient Name: Esperanza Chaparro Patient Birthdate: 1955 OT Current Functional Status: Mr Chaparro's current functional status is as follows: EATING: supervision and cues especially for visual scanning to the left; pt has some spillage on L side of mouth and residual food on left side at times ORAL HYGIENE: supervision and cues for thoroughness TOILETING: dependent, bed level for safety BATHING: max assist for sponge bathing, bed level; pt is able to assist with washing face and chest; assist needed for all other bathing tasks UB DRESSING: max assist; pt is able to assist with doffing shirt from L arm and for pulling shirt down over trunk; assist needed for all other aspects LB DRESSING: dependent, bed level for safety PUTTING ON/TAKING OFF FOOTWEAR: dependent, assist needed for all aspects ROLL LEFT AND RIGHT: dependent SIT TO LYING: dependent LYING TO SITTING: dependent SIT TO STAND: dependent BED TO CHAIR TRANSFER: dependent, cee with two person assist TOILET TRANSFER: NT b/c of safety concerns with balance Shower transfers: NT b/c of safety concerns with balance Mr Chaparro frequently reports pain in L UE especially during ADLs and transfers. He does not have any active movement in L UE. Mr Chaparro presents with left visual inattention (improving somewhat). He would benefit from continuedintensive OT to maximize functional independence and safety. Facilitating Factors in Goal Achievement: Patient compliance, Patient motivation, Use of compensatory strategies, Support of family or caregiver, Improved cognition and Improved function Barriers to Goal Achievement: Strength limitations, ROM limitations, Balance deficits, Motor control deficits, Diminished endurance, Pain, Cognitive deficits and Visual deficits Patient needs assistance with the following activities: Activities of daily living, Going out in the community, Memory, Use of bathroom equipment, Positioning, Sitting balance, Use of patient wine pasteurizer and Rolling CARE Score Mg: 6: Independent. [place] provides no assistance with tasks. A device may or may not have been used. 5: Set-up or clean-up assistance. [place]nut sets up or cleans up, but does not assist with tasks. Walnut may have assisted prior to or following the activity. 4: Supervision or touching assistance. [place] provides verbal cues or touching/steadying or contactguard assistance. Assistance may be provided throughout the activity or intermittently. 3: Partial/moderate assistance. Walnut does less than half the effort. Walnut lifts, holds, or supports trunk or limbs, but provides less than half the effort. 2: Substantial/maximal assistance. [place]nut does more than half the effort. Walnut lifts or holds trunk or limbs, and provides more than half the effort. 1: Dependent. [place] does all of the effort, or the assistance of two or more helpers is required for the patient to complete the activity. -: Inconsistent or incomplete documentation Activity not attempted values: 7: Patient refused 9: Not applicable - Not attempted and the patient did not perform this activity prior to the current illness, exacerbation, or injury. 10: Not attempted due to environmental limitations (e.g., lack of equipment, weather constraints) 88: Not attempted due to medical condition or safety concerns Residential Goals: Goal Status on Admission Current Status Eating - CARE Score: 4 (10/29/22 1021 : Luke Robertson OT) Eating - CARE Score: 4 (11/06/22 1542) Oral Hygiene - CARE Score: 3 (10/29/22 1021 : Luke Robertson OT) Oral Hygiene - CARE Score: 4 (11/06/22 1542) Toileting Hygiene LTG: Partial/moderate assistance Toileting Hygiene - CARE Score: 1 (10/29/22 1021: Luke Robertson OT) Toileting Hygiene - CARE Score: 1 (11/06/22 154) Shower/Bathe Self LTG: Partial/moderate assistance Shower/Bathe Self - CARE Score: 1 (10/29/22 1021: Luke Robertson OT) Shower/Bathe Self - CARE Score: 2 (11/06/22 154) Upper Body Dressing LTG: Partial/moderate assistance Upper Body Dressing - CARE Score: 1 (10/29/22 1021 : Luke Robertson OT) Upper Body Dressing - CARE Score: 2 (11/06/22 1542) Lower Body Dressing LTG: Partial/moderate assistance Lower Body Dressing - CARE Score: 1 (10/29/22 1021 : Luke Robertson OT) Lower Body Dressing - CARE Score: 1 (11/06/22 1542) Putting On/Taking Off Footwear LTG: Partial/moderate assistance Putting On/Taking Off Footwear - CARE Score: 1 (10/29/22 1021 : Luke Robertson OT) Putting On/Taking Off Footwear - CARE Score: 1 (11/06/22 1542) Roll Left and Right - CARE Score: 1 (10/29/22 1021 : Luke Robertson OT) Roll Left and Right - CARE Score: 1 (11/06/22 1542) Sit to Lying - CARE Score: 1 (10/29/22 1021 : Luke Robertson OT) Sit to Lying - CARE Score: 1 (11/06/22 1542) Lying to Sitting on Side of Bed - CARE Score: 1 (10/29/22 1021 : Luke Robertson OT) Lying toSitting on Side of Bed - CARE Score: 1 (11/06/22 154) Sit to Stand - CARE Score: 88 (10/29/22 1021 : Luke Robertson OT) Sit to Stand - CARE Score:1 (11/06/22 1542) Chair/Dpx-vf-Morpj Transfer LTG: Partial/moderate assistance Chair/Gdp-re-Lgwmd Transfer - CARE Score: 88 (10/29/22 1021 : Luke Robertson OT) Chair/Qvn-fu-Tfppw Transfer - CARE Score: 1 (11/06/22 1542) Toilet Transfer LTG: Partial/moderate assistance Toilet Transfer - CARE Score: 88 (10/29/22 1021 : Luke Robertson OT) Toilet Transfer - CARE Score: 88 (11/06/22 1542) Additional Goals & Status: N/A OT Short Term Goal 1: Focus: Toileting Hygiene Level of Assistance to Meet Short Term Goal: Physical assistance 50%-74% Expected Achievement Date: 11/17/2022 Goal Status: Not Achieved OT Short Term Goal 2: Focus: Shower/Bathe Level of Assistance to Meet Short Term Goal: Physical assistance 50%-74% Expected Achievement Date: 11/17/2022 Goal Status: Achieved OT Short Term Goal 3: Focus: Upper Body Dressing Level of Assistance to Meet Short Term Goal: Physical assistance 50%-74% Expected Achievement Date: 11/09/2022 Goal Status: Achieved OT Short Term Goal 4: Focus: Lower Body Dressing Level of Assistance to Meet Short Term Goal: Physical assistance 50%-74% Expected Achievement Date: 11/17/2022 Goal Status: Not Achieved OT Short Term Goal 5: Focus: Toilet Transfer Level of Assistance to Meet Short Term Goal: Physical assistance 50%-74% Expected Achievement Date: 11/11/2022 Goal Status: Not Achieved OT Short Term Goal 6: Focus: Shower/Bathe Level of Assistance to Meet Short Term Goal: Physical assistance 25%-49% Expected Achievement Date: 11/13/2022 Goal Status: Established OT Short Term Goal 7: Focus: Upper Body Dressing Level of Assistance to Meet Short Term Goal: Physical assistance 25%-49% Expected Achievement Date: 11/13/2022 Goal Status: Established LUKE ROBERTSON OT 11/06/2022 * OIL GAS AND PIPE TESTER Weekly Progress Note - [facility] - 11/06/2022 2:09 PM CDT Speech Language Pathologist Weekly Progress Note Patient Name: Esperanza Chaparro Patient Birthdate: 1955 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 Chaparro is a 67 year old male referred to speech therapy for evaluation and treatment following recent hospitalization with a diagnosis of CVA. Patient presented to the hospital initially on 10/12/22 due to a peritonsillar abscess, reporting dysphagia symptoms with liquids and solids. While there, he developed left sided weakness with confirmation of CVA. He was living with his sister prior to admission and was independent with ADLs and IADLs and driving. 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 Current functional status is as follows: SWALLOWING: Current diet: SOFT & BITE SIZED with THIN LIQUIDS (IDDSI 6/0) Mild spillage and oral residue noted on the left side. COMMUNICATION: COMPREHENSION- SUPERVISION. Patient is able to comprehend information regarding basic needs over 90% of the time. Increased difficulty noted with comprehension of complex or abstract information. EXPRESSION- SUPERVISION. Patient is able to express information regarding basic needs over 90% of the time. Increased difficulty noted with comprehension of complex or abstract information. Patient presents with mild dysarthria but mostly intelligible speech. COGNITION: PROBLEM-SOLVING- Improved to MINIMAL ASSISTANCE. Patient is able to solve routine problems at least75% of the time. Improvement noted in ability to provide appropriate responses for basic verbal problem-solving situations. Increased assistance required for multi-step sequencing and mathematical reasoning tasks. MEMORY: MODERATE ASSISTANCE. Patient is able to recognize and remember people, routines, and requests 50-74% of the time. SOCIAL INTERACTION: MINIMAL ASSISTANCE. Patient presents with frequent fatigue and pain which interferes with performance in therapy. He requires frequent encouragement to continue with participationin therapy tasks. PROGRESS 11/02/22: Evaluation was completed on 10/29/22. All goals remain appropriate to continue at this time due to limited number of sessions thus far. Patient is distracted by pain and discomfort when up in wheelchair during therapy sessions. He requires frequent encouragement for task persistence. Patient requires assistance with tray set-up and at least some degree of supervision/assistance with feeding due to left visual impairment and left side weakness. PROGRESS 11/06/22: Patient is making good progress towards his speech therapy goals. He has participated in discussion this week regarding stroke risk factors and prevention. He has shown improved ability to solve basic problem-solving situations. He is using compensatory strategies with minimal cueing to locate information on the left side for visual matching tasks. Patient is managing current diet well and would benefit from further assessment to determine safety of upgraded solid textures at this time. RECOMMENDATION: Mr. Chaparro will benefit from continued speech therapy services to address the following plan of care: patient and family education; use of compensatory strategies; interventions for improved strength and movement of left facial musculature; interventions for improved swallowing function to manage least restrictive solid and liquid consistencies; and cognitive retraining for functional reasoning and memory skills to increase safety and independence at discharge. The Patient: [ ]is able to state 2 risk factors without VCs prior to discharge [X ]requires cues to recall 2 stroke risk factors [ ] Is unable to state stroke risk factors due to communication or cognitive deficits Facilitating Factors in Goal Achievement: Patient compliance, Improvement in cognitive skills, Progress to date, Increased visual acuity/attention and Support of other(s) Barriers to Goal Achievement: Pain, Other (comment) and Visual inattention/neglect (cognition) Date Last Assessed: 11/06/2022 Residential Goals: Goal Status on Evaluation Current Progress Towards Goal Level of Assistance to Meet Problem Solving: Min assist (10-24%) Problem Solving Details: Improve functional problem-solving skills to minimal assistance to solve routine problems at least 75% of the time. Problem Solving Expected Achievement Date: 11/25/22 Moderate assistance Achieved at minimal assistance Level of Assistance to Meet Memory: Min assist (10-24%) Memory Details: Improve functional memory skills to minimal assistance to recognize and remember people, routines, and requests at least 75% of the time. Memory Expected Achievement Date: 11/25/22 Moderate assistance Continue to address Swallowing Details: Safely manage regular texture solids and thin liquids with no clinical signs ofdysphagia. Swallowing Expected Achievement Date: 11/25/22 Soft and Bite Sized/Thin liquids Continue to address Additional Goal Status: N/A OIL GAS AND PIPE TESTER Short Term Goals: Problem Solving: Details: Complete functional problem-solving/reasoning tasks with 70% accuracy. REVISED 11/06/22 : Complete functional problem-solving/reasoning tasks with 80% accuracy. Expected Achievement Date: 11/13/2022 Goal Status: Achieved Memory: Level of Assistance to Meet Memory: Total assist (75% or more) Details: Complete short term memory tasks with 70% accuracy. REVISED 11/06/22: Complete short term memory tasks with 80% accuracy. Expected Achievement Date: 11/09/2022 Goal Status: Achieved Additional Cognition: Details: Participate in further assessment of cognitive skills using a standardized measure. Expected Achievement Date: 11/09/2022 Goal Status: Not Achieved Swallowing: Details: Safely manage current diet and thin liquids using compensatory strategies with no clinicalsigns of dysphagia. Expected Achievement Date: 11/09/2022 Goal Status: Achieved Other STG 1: Focus: Swallowing Details: Participate in NMES (PENS) to stimulate left facial musculature. Expected Achievement Date: 11/13/2022 Goal Status: Not Achieved Other STG 2: Focus: Additional Cognition Level of Assistance to Meet Other STG 2: Independent Details: Recall 2 factors for stroke prevention independently. Expected Achievement Date: 11/13/2022 Goal Status: Partially Achieved Other STG 3: Focus: Additional Cognition Level of Assistance to Meet Other STG 3: Min assist (10-24%) Details: Complete tasks to target left attention with minimal assistance. Expected Achievement Date: 11/13/2022 Goal Status: Partially Achieved Other STG 4: Focus: Swallowing Details: Participate in trials to assess for safety of diet upgrade. Expected Achievement Date: 11/13/2022 Goal Status: Established Duration Expiration Date: 11/25/[address] 11/06/2022 * OIL GAS AND PIPE TESTER Treatment Note - [facility] - 11/06/2022 1:01 PM CDT Speech Language Pathologist Treatment Patient Name: Esperanza Chaparro Patient Birthdate: 1955 Patient Subjective Report - I need another warm blanket. Pain Assessment Pain Context: Therapy Assessment Prior to Treatment (11/06/22 1301) Pain Assessment: NRS 0-10 (11/06/22 1301) Pain Score: 2 (11/06/22 1301) Pain Severity - NRS (Calculated): Mild (11/06/22 1301) Pain Type: Acute pain (11/06/22 1301) Pain Location: Buttocks (11/06/22 1301) Pain Descriptors: Burning (11/06/22 1301) Pain Onset: Ongoing (11/06/22 1301) Pain Frequency: Constant/continuous (11/06/22 1301) Aggravating Factors: Positioning (11/06/22 1301) Pre-therapy pain intervention required: Patient expressed pain is tolerable/able to proceed (11/06/22 1301) Pain Interventions Education Provided: Patient (11/06/22 1348) Non-Pharmacologic Pain Interventions: Distractions, Position/Reposition (11/06/22 1348) Emotional/Spiritual Pain Interventions: Emotional Support (11/06/22 1348) Cognitive Communication: Immediate memory, Short-term memory, Processing information of increased length or complexity, Semi-complex to complex attention, Task persistence, Self monitoring, Speed of processing, Planning and sequencing, Organization, Verbal problem solving and Visual strategies Dysphagia Treatment: Swallow strategy training, Oral care and Dysphagia diet training Recommended diet: IDDSI 6 - Soft & Bite-Sized / NDD3, Pills Whole in IDDSI 4 (Pureed / Extremely Thick) and IDDSI 0 - Thin Liquids / All Liquids Compensatory swallowing techniques: Small bites, Small sips, Eat slowly-control rate, Seated upright with all PO intake, Monitor oral spillage, Oral care post PO intake and Other (comment) (Avoid large bore straw) Level of supervision at meals recommended: 1 to 1 assistance due to cognitive or motor deficits Patient/Caregiver Training: Completed with patient, Therapy goals and treatment plan, Oral hygiene,Cognitive strategies, Cognitive Communication Disorder, Dysphagia, Swallow strategies and Current diet ST Narrative:: 1. Patient was seen for therapy in his room, reclined in tilt in space wheelchair; alert and cooperative with therapy tasks initially but became increasingly lethargic as the session progressed. 2. Patient completed a left visual attention task on the iPad ([employer]icher Find the Same Symbol ). He completed level 3 with 100% accuracy; level 5 with minimal assistance. 3. Patient listened to short voicemail messages and answered multiple choice retention questions with 80% accuracy. 4. Patient provided appropriate responses for functional problem-solving questions with 80% accuracy. 5. Patient remained in his room with call light left within reach. Chair alarm activated. ST Session Outcomes: Patient/family education progressing, Progressing toward STGs, Tolerated treatment well and Minimal cues during session ST Summary Plan of Care: Continue with current plan of care Pain Evaluation and Follow-up Response to Therapy Interventions: Other (comment) (No change) (11/06/22 1348) Pain Reassessment: 2 (11/06/22 134) Nursing notified of patient's pain assessment: Not indicated - pain score 2 or less (11/06/22 1348) Therapy Minutes Individual Concurrent Co-Treat Time In : 1301 Time Out: 1348 Breaks/Pauses (Min): 0 mins Total Time with Patient (Min): 47 min Missed Minutes : [address] 11/06/2022 * PT Weekly Progress Note - Irlanda Sher, PT - 11/06/2022 12:16 PM CDT PT Weekly Progress Note Patient Name: Esperanza Chaparro Patient Birthdate: 1955 PT CURRENT FUNCTIONAL STATUS: PT Current Functional Status: PT Current Functional Status: Mr. Chaparro's functional status as follows: POSITIONING: requires tilt in space w/c for trunk, head support, positioning. Half lap tray on leftwith gel heel protector to assist with left UE positioning. SITTING BALANCE: static sitting at edge of mat: max/total assist initially to control push left, retropulsion. With support and cues, can hold at times with mod assist for a few seconds but unable tomaintain prolonged time BED MOBILITY: Sit to/from supine with total assist of two for lift assist at trunk and LE's. Pt with painful leftgroin and back and resists movement at times. Increased education for pt to assist with right side vs pushing. Rolling to left with use of grab bar: min/mod assist to complete motion. To left with max/total assist for left side assist. Use of draw sheet for support due to left shoulder and groin pain with movement. TRANSFERS Sit to/from stand from edge of sweetie-mat with uses of grab bar on right, sheet support under hips. Total assist of 3 to obtain full upright stance. Max left knee block, pt maintains right knee in flexed position. Pushes left with max/total assist to obtain midline positioning. Stand pivot : not safe to attempt. Use of cee w/c to/from bed Trialed use of transfer board w/c to level mat: draw sheet assist, max/total of 3 for left leg block, trunk control due to pushes left and posterior. Car transfer: not safe to attempt GAIT Unsafe to attempt ambulation 10, 50',150'. Static stance from edge of mat as noted above: stood grossly 60 seconds with max/total assist of 3. Ambulates 10' on compliant surfaces : not safe to attempt Unsafe to retrieve object from floor STAIRS Ascends/descends curb : not safe to attempt Acscends/descends 4, 12 steps unsafe to attempt at this time WHEELCHAIR MOBILITY Pt requires tilt in space w/c for upright positioning support, trunk control, head support. Left half lap tray and use of gel heel protector to assist with maintaining positioning. Use of heel protectors at bilateral knee to control pressure on fibular heads. Dependent for up to 150' OUTCOME MEASURES: AGITATED BEHAVIOR SCALE 18 POSTURAL ASSESSMENT OF STROKE : Factors in Goal Achievement: Facilitating Factors: Patient understanding and knowledge Barriers: Pain, Strength limitations, Motor control deficits, Balance deficits and Decreased safetyawareness Date Last Assessed: 11/06/2022 CARE Score Mg: 6: Independent. [place] provides no assistance with tasks. A device may or may not have been used. 5: Set-up or clean-up assistance. [place] sets up or cleans up, but does not assist with tasks. [place] may have assisted prior to or following the activity. 4: Supervision or touching assistance. [place] provides verbal cues or touching/steadying or contactguard assistance. Assistance may be provided throughout the activity or intermittently. 3: Partial/moderate assistance. [place] does less than half the effort. [place] lifts, holds, or supports trunk or limbs, but provides less than half the effort. 2: Substantial/maximal assistance. [place] does more than half the effort. [place] lifts or holds trunk or limbs, and provides more than half the effort. 1: Dependent. [place] does all of the effort, or the assistance of two or more helpers is required for the patient to complete the activity. -: Inconsistent or incomplete documentation Activity not attempted values: 7: Patient refused 9: Not applicable - Not attempted and the patient did not perform this activity prior to the current illness, exacerbation, or injury. 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: Goal Status on Admission Current Status Car Transfer - CARE Score: 88 (10/29/22 174 : Irlanda Sher, PT) Car Transfer - CARE Score: 88(11/06/22 1218) Walk 10 Feet LTG: Dependent (pt will ambulate 10ft with hemiaide and mod/max of two) Walk 10 Feet -CARE Score: 88 (10/29/22 1747 : Irlanda Sher, PT) Walk 10 Feet - CARE Score: 88 (11/06/22 1218) Walk 50 Feet with Two Turns - CARE Score: 88 (10/29/221746 : Irlanda Sher PT) Walk 50 Feet with Two Turns - CARE Score: 88 (11/06/221217) Walk 150 Feet - CARE Score: 88 (10/29/221746 : Irlanda Sher PT) Walk 150 Feet - CARE Score: 88 (11/06/221217) Walking 10 Feet on Uneven Surfaces - CARE Score: 88 (10/29/221746 : Irlanda Sher PT) [id number] Feet on Uneven Surfaces - CARE Score: 88 (11/06/221217) 1 Step (Curb) - CARE Score: 88 (10/29/221746 : Irlanda Sher PT) 1 Step (Curb) - CARE Score: 88 (11/06/221217) 4 Steps - CARE Score: 88 (10/29/221746 : Irlanda Sher PT) 4 Steps - CARE Score: 88 () 12 Steps - CARE Score: 88 (10/29/221746 : Irlanda Sher PT) 12 Steps - CARE Score: 88 (11/06/221217) Picking Up Object - CARE Score: 88 (10/29/221746 : Irlanda Sher PT) Picking Up Object - CAREScore: 88 (11/06/221217) Wheel 50 Feet with Two Turns LTG: Partial/moderate assistance (pt propel w/c 60ft with right UE/LE and mod assist for guidance.) Wheel 50 Feet with Two Turns - CARE Score: 88 (10/29/221746 : Irlanda Sher PT) Wheel 50 Feet with Two Turns - CARE Score: 1 (11/06/221217) Wheel 150 Feet - CARE Score: 88 (10/29/221746 : Irlanda Sher PT) Wheel 150 Feet - CARE Score: 1 (11/06/221217) Additional Goals & Status: N/A PT Other Residential Goals Flowsheet Row Most Recent Value Other PT Residential Goals Other Goals - Residential Offset Lithographic 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 1, Residential 2, Offset Lithographic 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 3, Residential 4 Filed on: 10/29/20221748 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 Lithographic 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 Goal 1 w/c to/from level surface with transfer board and mod assist Filed on: 10/29/20221748 Other Residential Goal 1 Status Established Filed on: 10/29/20221748 Other Residential Goal 2 sit to stand to hemiaide and mod assist of two Filed on: 10/29/20221748 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 Lithographic 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 Goal 2 Status Established Filed on: 10/29/20221748 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 Filed on: 10/29/20221748 Other Residential Goal 4 Status Established Filed on: 10/29/20221748 PT Short Term Goal 1: Details: Sit to/from supine with max assist Expected Achievement Date: 11/13/2022 Goal Status: Not Achieved PT Short Term Goal 2: Details: W/c to/from level surface with use of transfer board and max assist Expected Achievement Date: 11/13/2022 Status: Not Achieved PT Short Term Goal 3: Details: Sit to cable tv installer parallel bars with max assist. Expected Achievement Date: 11/13/2022 Status: Not Achieved PT Short Term Goal 4: Details: Pt ambulate 5ft in parallel bars with mod/max assist of two. Expected Achievement Date: 11/13/2022 Goal Status: Not Achieved Duration Expiration Date: 11/18/2022 IRLANDA SHER, PT 11/06/2022 * OT Treatment Note - Luke Robertson, OT - 11/06/2022 11:17 AM CDT Occupational Therapy Treatment Patient Name: Esperanza Chaparro Patient Birthdate: 1955 Patient Subjective Report - I'm so cold today! Pain Assessment Pain Context: Therapy Assessment Prior to Treatment (11/06/22 1144) Pain Assessment: NRS 0-10 (11/06/22 1144) Pain Score: 6 (11/06/22 1144) Pain Severity - NRS (Calculated): Moderate (11/06/22 1144) Pain Location: Arm, Groin, Buttocks (11/06/22 1144) Pain Interventions Education Provided: Patient (11/06/22 114) Non-Pharmacologic Pain Interventions: Distractions, Exercise/Activity, Position/Reposition (11/06/22 114) OT Therapeutic Activity: Therapeutic Exercise: L UE PROM and positioning. Pt tolerated about 90 degrees shoulder flexion andextension and full ROM of elbow flexion/extension, supination/pronation, and finger movements. No AROM noted in L UE. Mr Chaparro participated in balloon tennis using R UE; he needs cues for visual scanning to left side of visual field throughout activity. He did a 12 piece puzzle with min cues for visual scanning to the left. Mr Chaparro was tilted back in chair at end of session b/c of complaint of back and buttocks pain. L elbow positioned with gel heel pad. Treatment, Outcomes and Plan: OT Narrative:: Mr Chaparro tolerated session well. He would benefit from continued intensive OT to maximize functional independence and safety. OT Treatment Outcomes:: Safety device reapplied, Patient tolerated treatment well, Patient is progressing toward STG(s), Goals met for this session, Improved ADL performance and Improved ability to perform functional transfers OT Summary Plan of Care: Continue with current plan of care Pain Evaluation and Follow-up Pain Reassessment: 1 (L arm, buttocks) (11/06/22 114) Nursing notified of patient's pain assessment: Not indicated - pain score 2 or less (11/06/22 114) Therapy Minutes Individual Concurrent Co-Treat Individual (OT) Time In : 1117 Time Out: 1202 Total Time with Patient (Min): 45 min LUKE ROBERTSON OT 11/06/2022 * PT Treatment Note - Irlanda Sher, PT - 11/06/2022 9:45 AM CDT PT Treatment Patient Name: Esperanza Chaparro Patient Birthdate: 1955 Patient Subjective Report - pt reports pain in left shoulder, left groin but ok for therapy. Also reports pain in anal area-- Dr. Garibay notified of pain in groin with all movement on left leg, andother complaints. Pt did state he's ready for therapy. Pain Assessment Pain Context: Therapy Assessment During Treatment (11/06/22 103) Pain Assessment: NRS 0-10 (11/06/22 1030) Pain Score: 10 (11/06/22 1030) Pain Severity - NRS (Calculated): Severe (11/06/22 1030) Pain Location: Groin, Shoulder, Back (11/06/22 1030) Pain Orientation: Left (11/06/22 103) Pain Descriptors: Aching, Burning, Sore, Sharp (11/06/22 103) Pain Onset: Ongoing (11/06/22 103) Pain Frequency: Constant/continuous (11/06/22 103) Functional Impact: Turning (11/06/22 0945) Pre-therapy pain intervention required: Patient expressed pain is tolerable/able to proceed, Nursing medicated patient - see MAR (11/06/22 103) Pain Interventions Non-Pharmacologic Pain Interventions: Exercise/Activity, Position/Reposition, Distractions, Other (Comment) (received pain meds during therapy) (11/06/22 111) Emotional/Spiritual Pain Interventions: Emotional Support (11/06/22 111) POSITIONING: requires tilt in space w/c for trunk, head support, positioning. Half lap tray on leftwith gel heel protector to assist with left UE positioning. SITTING BALANCE: static sitting at edge of mat: max/total assist initially to control push left, retropulsion. With support and cues, can hold at times with mod assist for a few seconds but unable tomaintain prolonged time BED MOBILITY: Sit to/from supine with total assist of two for lift assist at trunk and LE's. Pt with painful leftgroin and back and resists movement at times. Increased education for pt to assist with right side vs pushing. Rolling to left with use of grab bar: min/mod assist to complete motion. To left with max/total assist for left side assist. Use of draw sheet for support due to left shoulder and groin pain with movement. TRANSFERS Sit to/from stand from edge of sweetie-mat with uses of grab bar on right, sheet support under hips. Total assist of 3 to obtain full upright stance. Max left knee block, pt maintains right knee in flexed position. Pushes left with max/total assist to obtain midline positioning. Stand pivot : not safe to attempt. Use of cee w/c to/from bed Trialed use of transfer board w/c to level mat: draw sheet assist, max/total of 3 for left leg block, trunk control due to pushes left and posterior. Car transfer: not safe to attempt GAIT Unsafe to attempt ambulation 10, 50',150'. Static stance from edge of mat as noted above: stood grossly 60 seconds with max/total assist of 3. Ambulates 10' on compliant surfaces : not safe to attempt Unsafe to retrieve object from floor STAIRS Ascends/descends curb : not safe to attempt Acscends/descends 4, 12 steps unsafe to attempt at this time WHEELCHAIR MOBILITY Pt requires tilt in space w/c for upright positioning support, trunk control, head support. Left half lap tray and use of gel heel protector to assist with maintaining positioning. Use of heel protectors at bilateral knee to control pressure on fibular heads. Dependent for up to 150' OUTCOME MEASURES: AGITATED BEHAVIOR SCALE 18 POSTURAL ASSESSMENT OF STROKE : Therapeutic Activities and Neuromuscular Re-education: Pt up in chair upon arrival. Transferred chair to level mat ([employer] mat) with use of transfer board- total assist of 3 as noted above. Use of grab bar on right to facilitate wt shift right, midline positioning. Max support at trunk tomaintain, but pt does attempt to wt shift right with cues. Cues for upright head posture, scanning left. Frequent repositioning for forward and centered trunk position. With use of drawsheet at hips and grab bar on right: pulls up to stance with max/total of 3. 1st attempt unable to obtain full upright stance- WB x5 seconds. Second attempt: obtained upright stance with right leg in flexed position, max/total of 3 to obtain centered position. Cues for upright head and scan left. Tolerated stance [id number] 2nd attempt. In short sitting and left leg unweighted: slight knee flexion/extension noted to command- trace movement. Inconsistent. Pt incontinent of bowel during session. Cee lift to bed: rolling and bed mobility as noted for hygiene. Gentle LE ROM. Pt does attempt to assist with bed mobility with frequent cuing. Pt the transferred back up to tilt in space w/c via cee lift. Positioning with left half lap trayand gel heel protector used to assist left UE. PT Treatment Outcomes:: Safety device reapplied and Patient tolerated session fair PT Summary:: Mr. Chaparro tolerated the session fair. Barriers continue to be pain, distractibility. Increased education deficits s/p CVA, left hemiparesis (wants to try a walker). Continued education onpain management, positioning. (Pt requests morphine, educated unable to use morphine on rehab). MD aware. He did state he felt a little better with return back up to chair and positioning. He works hard and will continue to benefit from intensive therapy to maximize functional gains, overall tolerance to mobility. PT Summary Plan of Care: Continue with current plan of care Pain Evaluation and Follow-up Response to Therapy Interventions: Decreased complaints of pain (11/06/22 1117) Pain Reassessment: 7 (11/06/22 111) Nursing notified of patient's pain assessment: Primary Nurse (11/06/22 111) Therapy Minutes Individual Concurrent Co-Treat Individual (PT) Time In : 944 Time Out: 1117 Total Time with Patient (Min): 92 min IRLANAD SHER, PT 11/06/2022 * Plan of Care - Purvi Ferreira - 11/06/2022 7:59 AM CDT Problem: Infection Goal: Absence of infection and prevention of transmission during hospitalization Outcome: Progressing Problem: Knowledge Deficit Goal: Patient and/or family demonstrate readiness to learn Outcome: Progressing Goal: Patient and/or family verbalizes understanding of education, and/or performs desired skill Outcome: Progressing Problem: Discharge Planning Goal: Discharge to home or other facility with appropriate resources Outcome: Progressing Goal: client services assistant will develop a plan to decrease their burden and enhance comfort in role Outcome: Progressing Problem: Delirium Goal: Prevent and Manage Delirium Outcome: Progressing Problem: Fall Safety: [place] Precautions Goal: Free from fall injury Outcome: Progressing Problem: Fall Huddle Goal: Free from Fall Injury Outcome: Progressing Problem: Fall Prevention: Fatigue Bundle Goal: Patient will be free from Fall Injury Outcome: Progressing Problem: Fall Safety: [place] Precautions Goal: Free from fall injury Outcome: Progressing Problem: Fall Huddle Goal: Free from Fall Injury Outcome: Progressing Problem: Pain Goal: Patient's Pain/Discomfort is Manageable Outcome: Progressing Problem: Knowledge Deficit Goal: Patient/family/caregiver demonstrates understanding of disease process, treatment plan, medications, and discharge instructions Outcome: Progressing Problem: Potential for Compromised Skin Integrity Goal: Skin integrity is maintained or improved Outcome: Progressing Goal: Nutritional status is improving Outcome: Progressing Problem: Urinary Incontinence Goal: Perineal skin integrity is maintained or improved Outcome: Progressing Problem: Bowel Incontinence Goal: Perineal Skin Integrity is Maintained or Improved Outcome: Progressing Problem: Fall Prevention: Neglect/Hemiparesis Bundle Goal: Patient will be free from Fall Injury Outcome: Progressing * PT Treatment Note - Ryanne Levin, PT - 11/05/2022 1:34 PM CDT PT Treatment Patient Name: Esperanza Chaparro Patient Birthdate: 1955 Patient Subjective Report - I got to poop Pain Assessment Pain Context: Therapy Assessment Prior to Treatment (11/05/22 1300) Pain Assessment: NRS 0-10 (11/05/22 1300) Pain Score: 8 (11/05/22 1300) Pain Severity - NRS (Calculated): Severe (11/05/22 1300) Pain Location: Back (11/05/22 1300) Pain Descriptors: Aching (11/05/22 1300) Pain Onset: Awakened from sleep (11/05/22 1300) Pain Frequency: Constant/continuous (11/05/22 1300) Aggravating Factors: Activity Duration (11/05/22 1300) Functional Impact: Ambulation, Transfers (11/05/22 1300) Pre-therapy pain intervention required: Patient expressed pain is tolerable/able to proceed, Nurse notified (11/05/22 1300) 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 Pt agreed to attempt to sit EOB. Autofirmed mattress and elevated HOB and required max A+3/dependent to obtain sitting. Pt was pushing back retropulsively and hips began to slip forwards. Dependent (max of 3) to return and reposition in bed. Pt once again stated im pooping Pt continued to go for 10 min and required mod/max A to roll to L, dependent to R for cleanup. PT Treatment Outcomes:: Safety device reapplied, Qualitative gains in function and Patient tolerated session poorly PT Summary:: Treatment was hindered by diarrhea today. PT Summary Plan of Care: Continue with current plan of care Therapy Minutes Individual Concurrent Co-Treat Individual (PT) Time In : 1300 Time Out: 1349 Total Time with Patient (Min): 49 min RYANNE LEVIN, PT 11/05/2022 * Plan of Care - Luke Elizalde RD - 11/05/2022 12:51 PM CDT Problem: Inadequate Oral Intake Description: Oral food/beverage intake that is less than established reference standards or recommendations based on physiological needs. Related to: Decreased ability to consume sufficient energy, e.g., increased nutrition needs due to prolonged catabolic illness As evidenced by: estimated protein needs of 90-95 g/day. Goal: Improve Nutritional Status Outcome: Progressing Flowsheets (Taken 10/29/2022 1338) Meals and Snacks: (soft and bite sized (6) diet) General healthful diet Medical Food Supplement Therapy: (vanilla Ensure high protein TID) Commercial beverage/Oral nutrition supplement * Plan of Care - Anne Marie Boyd RN - 11/05/2022 10:41 AM CDT Problem: Infection Goal: Absence of infection and prevention of transmission during hospitalization Outcome: Progressing Problem: Knowledge Deficit Goal: Patient and/or family demonstrate readiness to learn Outcome: Progressing Goal: Patient and/or family verbalizes understanding of education, and/or performs desired skill Outcome: Progressing Problem: Discharge Planning Goal: Discharge to home or other facility with appropriate resources Outcome: Progressing Goal: client services assistant will develop a plan to decrease their burden and enhance comfort in role Outcome: Progressing Problem: Delirium Goal: Prevent and Manage Delirium Outcome: Progressing Problem: Fall Safety: [place] Precautions Goal: Free from fall injury Outcome: Progressing Problem: Fall Huddle Goal: Free from Fall Injury Outcome: Progressing Problem: Fall Prevention: Fatigue Bundle Goal: Patient will be free from Fall Injury Outcome: Progressing Problem: Fall Safety: [place] Precautions Goal: Free from fall injury Outcome: Progressing Problem: Fall Huddle Goal: Free from Fall Injury Outcome: Progressing Problem: Pain Goal: Patient's Pain/Discomfort is Manageable Outcome: Progressing Problem: Knowledge Deficit Goal: Patient/family/caregiver demonstrates understanding of disease process, treatment plan, medications, and discharge instructions Outcome: Progressing Problem: Potential for Compromised Skin Integrity Goal: Skin integrity is maintained or improved Outcome: Progressing Goal: Nutritional status is improving Outcome: Progressing Problem: Urinary Incontinence Goal: Perineal skin integrity is maintained or improved Outcome: Progressing Problem: Bowel Incontinence Goal: Perineal Skin Integrity is Maintained or Improved Outcome: Progressing Problem: Fall Prevention: Neglect/Hemiparesis Bundle Goal: Patient will be free from Fall Injury Outcome: Progressing * OIL GAS AND PIPE TESTER Treatment Note - [facility] Tier[facility] - 11/05/2022 10:33 AM CDT Speech Language Pathologist Treatment Patient Name: Esperanza Chaparro Patient Birthdate: 1955 Pain Assessment Pain Context: Therapy Assessment Prior to Treatment (11/05/22 103) Pain Assessment: NRS 0-10 (11/05/22 103) Pain Score: 6 (11/05/22 103) Pain Severity - NRS (Calculated): Moderate (11/05/221032) Pain Type: Acute pain (11/05/22 103) Pain Location: Buttocks, Abdomen, Arm, Back (11/05/22 103) Pain Orientation: Left (arm) (11/05/22 103) Pain Descriptors: Aching, Discomfort (11/05/22 103) Pain Onset: Ongoing (11/05/22 103) Pain Frequency: Constant/continuous (11/05/22 103) Pre-therapy pain intervention required: Other (Comment) (RN aware; had pain medication earlier.) (11/05/22 103) Pain Interventions Education Provided: Patient (11/05/22 1118) Non-Pharmacologic Pain Interventions: Distractions (11/05/221117) Emotional/Spiritual Pain Interventions: Emotional Support (11/05/221117) Cognitive Communication: Immediate memory, Short-term memory, Insight, Processing information of increased length or complexity, Semi-complex to complex attention, Task persistence, Self monitoring and Speed of processing Dysphagia Treatment: Swallow strategy training, Oral care and Dysphagia diet training Recommended diet: IDDSI 6 - Soft & Bite-Sized / NDD3, Pills Whole in IDDSI 4 (Pureed / Extremely Thick) and IDDSI 0 - Thin Liquids / All Liquids Compensatory swallowing techniques: Small bites, Small sips, Eat slowly-control rate, Seated upright with all PO intake, Monitor oral spillage, Oral care post PO intake and Other (comment) (Avoid large bore straw) Level of supervision at meals recommended: 1 to 1 assistance due to cognitive or motor deficits Patient/Caregiver Training: Completed with patient, Therapy goals and treatment plan, Oral hygiene,Cognitive strategies, Cognitive Communication Disorder, Dysphagia, Swallow strategies and Current diet ST Narrative:: 1. Patient was seen for therapy in his room, reclined in bed; alert and cooperative with therapy tasks but reported pain/discomfort due to constipation. 2. Patient was engaged in a complex topic of discussion regarding stroke: What is a stroke? What are the causes? What are the complications? How does rehab work? What happens after discharge? What are ways to prevent stroke? Patient was passive during the presentation but did verbalize understanding of the material discussed. 3. Esperanza Chaparro: [ ]is able to state 2 risk factors without VCs prior to discharge [ X]requires cues to recall 2 stroke risk factors [ ] Is unable to state stroke risk factors due to communication or cognitive deficits 4. Patient provided appropriate responses for functional problem-solving questions with minimal assistance required. 5. Patient remained in his room with call light and phone left within reach. Bed alarm activated. ST Session Outcomes: Patient/family education progressing, Progressing toward STGs, Tolerated treatment well and Minimal cues during session ST Summary Plan of Care: Continue with current plan of care Pain Evaluation and Follow-up Response to Therapy Interventions: Other (comment) (No change) (11/05/221117) Pain Reassessment: 6 (11/05/221117) Nursing notified of patient's pain assessment: Other (comment) (RN aware) (06/29/23 1118) Therapy Minutes Individual Concurrent Co-Treat Time In : 1033 Time Out: 1119 Breaks/Pauses (Min): 0 mins Total Time with Patient (Min): 46 min Missed Minutes : [address] 11/05/2022 * OT Treatment Note - Luke Robertson, OT - 11/05/2022 9:45 AM CDT Occupational Therapy Treatment Patient Name: Esperanza Chaparro Patient Birthdate: 1955 Patient Subjective Report - I am constipated today. Pain Assessment Pain Context: Therapy Assessment Prior to Treatment (11/05/22947) Pain Assessment: NRS 0-10 (11/05/22947) Pain Score: 8 (11/05/22947) Pain Severity - NRS (Calculated): Severe (11/05/22947) Pain Location: Arm, Groin, Buttocks (left arm, groin and buttocks) (11/05/22947) Pain Interventions Education Provided: Patient (11/05/22 1030) Non-Pharmacologic Pain Interventions: Distractions, Exercise/Activity, Position/Reposition (11/05/22 103) ADL Training: ADL Training Narrative: EATING: ORAL HYGIENE: supervision, some cues for thoroughness; pt used floss stick also (used R UE only) TOILETING: dependent, incontinent (bed level for clean up) two person assist needed BATHING: max assist for sponge bathing, bed level; pt assisted with washing face, chest, yisel area and L arm (with max cues) UB DRESSING: max assist; pt was able to help with doffing shirt with max cues LB DRESSING: dependent, bed level PUTTING ON/TAKING OFF FOOTWEAR: dependent ROLL LEFT AND RIGHT: two person assist for rolling to the right; pt is able to roll to the left with mod of one. SIT TO LYING: LYING TO SITTING: SIT TO STAND: BED TO CHAIR TRANSFER: TOILET TRANSFER: Treatment, Outcomes and Plan: OT Narrative:: Pt was seen bedside today b/c of constipation issues. Mr Chaparro tolerated session fairly. He continues to complain of pain in L shoulder and buttocks. Continued intensive OT recommended. OT Treatment Outcomes:: Safety device reapplied, Patient is progressing toward STG(s), Patient tolerated treatment fairly and Goals met for this session OT Summary Plan of Care: Continue with current plan of care Pain Evaluation and Follow-up Pain Reassessment: 6 (11/05/22 1030) Therapy Minutes Individual Concurrent Co-Treat Individual (OT) Time In : 944 Time Out: 1030 Total Time with Patient (Min): 45 min LUKE ROBERTSON, OT 11/05/2022 * PT Treatment Note - Irlanda Sher, PT - 11/05/2022 9:00 AM CDT PT Treatment Patient Name: Esperanza Chaparro Patient Birthdate: 1955 Patient Subjective Report - pt reports pain in left shoulder and groin but ok for therapy. States he just feels like he needs an enema. (Had suppository this am). RN is aware. Pain Assessment Pain Context: Therapy Assessment Prior to Treatment (11/05/22899) Pain Assessment: NRS 0-10 (11/05/22899) Pain Score: 8 (11/05/22899) Pain Severity - NRS (Calculated): Severe (11/05/22899) Pain Location: Shoulder, Groin (11/05/22899) Pain Orientation: Left (11/05/22899) Pain Descriptors: Aching, Sharp, Sore (11/05/22899) Pain Onset: Ongoing (11/05/22899) Pain Frequency: Constant/continuous (11/05/22899) Functional Impact: Turning (11/05/22899) Pre-therapy pain intervention required: Patient expressed pain is tolerable/able to proceed, Nurse notified (11/05/22899) Pain Interventions Non-Pharmacologic Pain Interventions: Exercise/Activity, Distractions, Position/Reposition (11/05/22944) Emotional/Spiritual Pain Interventions: Emotional Support (11/05/22944) Bed Mobility Comment: Rolls left with verbal cues and use of bedrail, mod assist to complete the motion. Total assist to roll right due to pt pushes with right side due to pain in left shoulder and hip/groin with attempt to roll right. Therapeutic Activities and Neuromuscular Re-education: Pt in bed upon arrival. PROM to left leg, gentle ROM. Reports pain in left groin with end range. Performed in all planes: ankle DF, hip ab/adduction, hip/knee flexion/extension. 2 sets of 10 Assisted right leg exercise: ankle DF, hip/knee flexion/extension, hip ab/adduction,, low SLR.- 2 sets of 10. Repeated rolling as noted with lots of education on positioning. Sensation: absent to light touch in left leg from hip down through foot. Use of cold cloth to wipe face- pt reports feeling warm. Temperature taken: 98.4. cues and min to complete task with right UE. Total assist to position centered in hospital bed. Educated on pushing with right side s/p CVA. PT Treatment Outcomes:: Patient tolerated session fair PT Summary:: Pt seen bedside due to had suppository. Frequent loose stools. Pt reports he feels something sharp inside, feels constipated and requests enema. RN is aware. He does respond to education and attempts to assist with mobility. Barriers are dense left hemiparesis, pain, decreased focus/attention to task. He will continue to benefit from intensive therapy to maximize functional gains, improve overall tolerance to mobility, upright tolerance. PT Summary Plan of Care: Continue with current plan of care Pain Evaluation and Follow-up Response to Therapy Interventions: Other (comment) (tolerated the session, still 8/10 pain) (11/05/22944) Pain Reassessment: 8 (11/05/22944) Nursing notified of patient's pain assessment: Primary Nurse (11/05/22944) Therapy Minutes Individual Concurrent Co-Treat Individual (PT) Time In : 0900 Time Out: 944 Total Time with Patient (Min): 45 min IRLANDA SHER, PT 11/05/2022 * Plan of Care - Nils Trevizo - 11/05/2022 3:50 AM CDT Problem: Fall Safety: [place] Precautions Goal: Free from fall injury Outcome: Progressing Flowsheets (Taken 11/01/2022 0500 by Juan C Sahu RN) Free from fall injury: Perform fall risk assessment and identifiers in place (as applicable) Frequent rounding/monitoring Lighting appropriate Bed low, locked 2 side rails Use of bed/chair alarm Put call light within reach and teach how to call for assistance, respond to call light immediately Toilet magnet in place ([facility] Only) Offer frequent toileting Assess for environmental or other risks Fall/safety education for patient/family/SO * OIL GAS AND PIPE TESTER Treatment Note - [facility] - 11/04/2022 1:03 PM CDT Speech Language Pathologist Treatment Patient Name: Esperanza Chaparro Patient Birthdate: 1955 Patient Subjective Report - I'm hurting. Pain Assessment Pain Context: Therapy Assessment Prior to Treatment (11/04/22 1303) Pain Assessment: NRS 0-10 (11/04/22 1303) Pain Score: 5 (11/04/22 1303) Pain Severity - NRS (Calculated): Moderate (11/04/22 1303) Pain Type: Chronic pain (11/04/22 1303) Pain Location: Buttocks (11/04/22 1303) Pain Descriptors: Burning (11/04/22 1303) Pain Onset: Ongoing (11/04/22 1303) Pain Frequency: Constant/continuous (11/04/22 1303) Pre-therapy pain intervention required: Patient expressed pain is tolerable/able to proceed (11/04/22 1303) Pain Interventions Education Provided: Patient (11/04/22 1348) Non-Pharmacologic Pain Interventions: Distractions (11/04/22 1348) Cognitive Communication: Immediate memory, Short-term memory, Insight, Processing information of increased length or complexity, Semi-complex to complex attention, Task persistence, Lingustic calculation for daily planning, Visual strategies, Self monitoring and Speed of processing Dysphagia Treatment: Swallow strategy training, Oral care and Dysphagia diet training Recommended diet: IDDSI 6 - Soft & Bite-Sized / NDD3, Pills Whole in IDDSI 4 (Pureed / Extremely Thick) and IDDSI 0 - Thin Liquids / All Liquids Compensatory swallowing techniques: Small bites, Small sips, Eat slowly-control rate, Seated upright with all PO intake, Monitor oral spillage, Oral care post PO intake and Other (comment) (Avoid large bore straw) Level of supervision at meals recommended: 1 to 1 assistance due to cognitive or motor deficits Patient/Caregiver Training: Completed with patient, Therapy goals and treatment plan, Oral hygiene,Cognitive strategies, Cognitive Communication Disorder, Dysphagia, Swallow strategies and Current diet ST Narrative:: 1. Patient was seen for therapy in his room, reclined in bed; mostly alert and cooperative with therapy tasks but continued to report pain/discomfort even while in the bed. 2. Patient performed oromotor resistance exercises for left facial weakness following a model. 3. Patient completed tasks on the iPad to target left visual attention. He was able to tell time genesis analog clock with 100% accuracy and to answer questions regarding time ahead or past on an analog clock with 80% accuracy. 4. Patient required minimal assistance to provide appropriate responses for functional problem-solving questions related to emergency situations. 5. Patient remained in his room with call light and phone left within reach. Bed alarm activated. ST Session Outcomes: Patient/family education progressing, Progressing toward STGs, Tolerated treatment well and Minimal cues during session ST Summary Plan of Care: Continue with current plan of care Pain Evaluation and Follow-up Response to Therapy Interventions: Other (comment) (No change) (11/04/22 1348) Pain Reassessment: 5 (11/04/22 1348) Nursing notified of patient's pain assessment: Other (comment) (RN aware) (11/04/22 1348) Therapy Minutes Individual Concurrent Co-Treat Time In : 1303 Time Out: 1350 Breaks/Pauses (Min): 0 mins Total Time with Patient (Min): 47 min Missed Minutes : [address] 11/04/2022 * Plan of Care - Edenilson Jules RN - 11/04/2022 11:33 AM CDT Problem: Infection Goal: Absence of infection and prevention of transmission during hospitalization Outcome: Progressing Problem: Knowledge Deficit Goal: Patient and/or family demonstrate readiness to learn Outcome: Progressing Goal: Patient and/or family verbalizes understanding of education, and/or performs desired skill Outcome: Progressing Problem: Discharge Planning Goal: Discharge to home or other facility with appropriate resources Outcome: Progressing Goal: client services assistant will develop a plan to decrease their burden and enhance comfort in role Outcome: Progressing Problem: Delirium Goal: Prevent and Manage Delirium Outcome: Progressing Problem: Fall Safety: [place] Precautions Goal: Free from fall injury Outcome: Progressing Problem: Fall Huddle Goal: Free from Fall Injury Outcome: Progressing Problem: Fall Prevention: Fatigue Bundle Goal: Patient will be free from Fall Injury Outcome: Progressing Problem: Fall Safety: [place] Precautions Goal: Free from fall injury Outcome: Progressing Problem: Fall Huddle Goal: Free from Fall Injury Outcome: Progressing Problem: Pain Goal: Patient's Pain/Discomfort is Manageable Outcome: Progressing Problem: Knowledge Deficit Goal: Patient/family/caregiver demonstrates understanding of disease process, treatment plan, medications, and discharge instructions Outcome: Progressing Problem: Potential for Compromised Skin Integrity Goal: Skin integrity is maintained or improved Outcome: Progressing Goal: Nutritional status is improving Outcome: Progressing Problem: Urinary Incontinence Goal: Perineal skin integrity is maintained or improved Outcome: Progressing Problem: Bowel Incontinence Goal: Perineal Skin Integrity is Maintained or Improved Outcome: Progressing Problem: Fall Prevention: Neglect/Hemiparesis Bundle Goal: Patient will be free from Fall Injury Outcome: Progressing * OT Treatment Note - Kate Torre OT - 11/04/2022 11:25 AM CDT Occupational Therapy Treatment Patient Name: Esperanza Chaparro Patient Birthdate: 1955 Patient Subjective Report - Pt seated in [id number] wheelchair upon entry. Pt reports my tail bone hurts . Pt agreeable to OT treatment with weight shifting exercises to start. Pain Assessment Pain Context: Therapy Assessment Prior to Treatment (11/04/22 111) Pain Assessment: NRS 0-10 (11/04/22 111) Pain Score: 10 (11/04/22 111) Pain Severity - NRS (Calculated): Severe (11/04/22 1116) Pain Type: Acute pain (11/04/22 1116) Pain Location: Groin, Shoulder, Leg, Sacrum, Foot (11/04/22 1116) Pain Orientation: Other (Comment) (Pt reports R foot, L shoulder, and L leg pain) (11/04/22 111) Pain Descriptors: Burning (11/04/22 111) Pain Onset: Ongoing (11/04/221115) Pain Frequency: Constant/continuous (11/04/221115) Aggravating Factors: Positioning (11/04/221115) Pre-therapy pain intervention required: Patient expressed pain is tolerable/able to proceed, Nurse notified (11/04/221115) Pain Interventions Education Provided: Patient (11/04/221115) Non-Pharmacologic Pain Interventions: Distractions, Position/Reposition (11/04/221115) Emotional/Spiritual Pain Interventions: Emotional Support (11/04/221115) OT Therapeutic Activity: ROM: Pt participates in PROM of LUE for promotion of ROM required for decreased swelling and musclere-education. Therapist performs 2 sets x 5 reps of the following stretches of LUE: Shoulder flexion Horizontal abduction Elbow flexion/extension Forearm supination/pronation Wrist flexion/extension Digit flexion/extension Pt demonstrates good tolerance of PROM with no complaints of pain. Pt educated on self ROM using RUE to complete PROM of LUE. However, pt unable to lift LUE. Special Test and Outcome Measures (completed during treatment): Agitated Behavior Scale (ABS) 11/04/22 1200 Agitated Behavior Scale Short attention span, easy distractibility, inability to concentrate 2 Short attention span Comment Pt requires minimal verbal cues to redirect. Impulsive, impatient, low tolerance for pain or frustration 2 Impulsive Comment Pt requires cues and repositioning to redirect from pain. Uncooperative, resistant to care, demanding 1 Violent and-or threatening violence toward people or property 1 Explosive and-or unpredictable anger 1 Rocking, rubbing, moaning, or other self-stimulating behavior 1 Pulling at tubes, restraints, etc. 1 Wandering from treatment areas 1 Restlessness, pacing, excessive movement 1 Repetitive behaviors, motor and-or verbal (perseveration) 1 Rapid, loud, or excessive talking 1 Sudden changes of mood 1 Easily initiated or excessive crying and-or laughter 1 Self-abusiveness, physical and-or verbal 1 Total 16 Patient was instructed in weight shifting techniques while sitting in wheelchair: Yes Weight Shifting Narrative: Pt completes weight shifting exercise for pain prevention and preventionof pressure wounds. Pt shifts to L side with therapist assistance for force production. Pt requiresassist to return to center and is unable to shift to R d/t c/o pain. Treatment, Outcomes and Plan: OT Narrative:: Pt with fair tolerance of therapeutic activities this date. Pt limited by pain during weight shifting exercises. Pt seated in [id number] w/c with w/c tray and pillow supporting LUE/elbow and pelvic positioning/safety belt in place at end of session. All needs within reach, with bedside table placed on R side. OT Treatment Outcomes:: Safety device reapplied and Patient tolerated treatment fairly OT Summary Plan of Care: Continue with current plan of care Pain Evaluation and Follow-up Response to Therapy Interventions: Improved positioning (11/04/22 120) Pain Reassessment: Other (Comment) (Pt reports the same ) (11/04/22 120) Nursing notified of patient's pain assessment: Primary Nurse (11/04/22 120) Therapy Minutes Individual Concurrent Co-Treat Individual (OT) Time In : 1116 Time Out: 1202 Total Time with Patient (Min): 46 min Missed Minutes : 1 KATE TORRE, OT 11/04/2022 * PT Treatment Note - Gela Taylor, PT - 11/04/2022 9:04 AM CDT PT Treatment Patient Name: Esperanza Chaparro Patient Birthdate: 1955 Patient Subjective Report - Client reports R foot pain, back pain and L UE pain Pain Assessment Pain Context: Therapy Assessment During Treatment (11/04/22904) Pain Assessment: NRS 0-10 (11/04/22904) Pain Score: 5 (11/04/22904) Pain Severity - NRS (Calculated): Moderate (11/04/22904) Pain Type: Acute pain (11/04/22904) Pain Location: Foot (11/04/22904) Pain Orientation: Right (11/04/22904) Pain Descriptors: Sore (11/04/22904) Pain Onset: Ongoing (11/04/22904) Pain Frequency: Constant/continuous (11/04/22904) Additional Pain Site(s)?: Pain 2 (11/04/22904) Pre-therapy pain intervention required: Nursing medicated patient - see EARLE, Patient expressed painis tolerable/able to proceed (11/04/22904) Pain Interventions Education Provided: Patient (11/04/22904) Non-Pharmacologic Pain Interventions: Distractions, Exercise/Activity, Position/Reposition, Rest (11/04/22904) Emotional/Spiritual Pain Interventions: Empathetic Discussion (11/04/22904) Pain Site 2 Pain Assessment Site 2: NRS 0-10 (11/04/22904) Pain Score Site 2: 5 (11/04/22904) Pain Severity - NRS (Calculated): Moderate (11/04/22904) Pain Type Site 2: Acute pain (11/04/22904) Pain Location Site 2: Back (11/04/22904) Pain Orientation Site 2: Lower (11/04/22904) Pain Descriptors Site 2: Sore (11/04/22904) Pain Onset Site 2: On-going (11/04/22904) Pain Frequency Site 2: Constant/continuous (11/04/22904) Pain Site 3 Pain Assessment Site 3: NRS 0-10 (11/04/22904) Pain Score Site 3: 5 (11/04/22904) Pain Severity - NRS (Calculated): Moderate (11/04/22904) Pain Type Site 3: Acute pain (11/04/22904) Pain Location Site 3: Arm (11/04/22904) Pain Orientation Site 3: Left (11/04/22904) Pain Descriptors Site 3: Sore (11/04/22904) Pain Onset Site 3: On-going (11/04/22904) Pain Frequency Site 3: Other (Comment) (with activity) (11/04/22904) Client bought to gym via tilt in space w/c to transfer via Cee lift to mat; client reports he needs to go to the bathroom. Client assisted in sitting with placing Cee pad with dependent assist of 2-3 for weight shift to each side and supporting trunk and L UE and lift assist at LE's to place pad under thighs Client taken to room and transferred from tilt in space w/c to air mattress with Cee lift with dependent assist of 2-3 for safety Rolling to L side with bed rail with min A; dependent assist of 2 to roll to R side for force production, support of L UE and LE using sheet Client worked on rolling multiple times to don/doff pants and depends to place bed daniels and for placing Cee pad during session Client unable to have BM during session and therapist assisted with urinal x 3 during session, client unable to void. Client assisted back up into w/c with dependent assist of 2 with Cee lift THERAPEUTIC EXERCISE: AROM for R ankle pumps, heel slides, hip abd/add, SAQ's x 15 reps; tactile cues at times for accurate technique PROM L LE for hip and knee flex/ext, hip abd/add x 10-15 reps, gentle IPROM R to neutral with L LE x 10 reps;PROM L heel cord stretch to tolerance x 3 reps for 30 second hold each Client cries out in pain during session with movement of mainly with L UE and L LE, discussed with client therapeutic exercises for passively moving limbs to help with pain and stiffness, client reports L hip feels better with repeated movement. Also, discussed positioning of L LE in bed for bettersupport and pain relief. Max cues for preparation before performing transfers or movement of limbs. ABS:17 Pain Evaluation and Follow-up Pain Reassessment: 5 (11/04/22 1000) Nursing notified of patient's pain assessment: Primary Nurse (11/04/22 1000) Therapy Minutes Individual Concurrent Co-Treat Individual (PT) Time In : 903 Time Out: 1034 Total Time with Patient (Min): 90 min GELA TAYLOR, PT 11/04/2022 * Plan of Care - Nils Atkinsalfreda - 11/04/2022 1:06 AM CDT Problem: Fall Safety: [place] Precautions Goal: Free from fall injury Outcome: Progressing Flowsheets (Taken 11/01/2022 0500 by Juan C Sahu RN) Free from fall injury: Perform fall risk assessment and identifiers in place (as applicable) Frequent rounding/monitoring Lighting appropriate Bed low, locked 2 side rails Use of bed/chair alarm Put call light within reach and teach how to call for assistance, respond to call light immediately Toilet magnet in place ([facility] Only) Offer frequent toileting Assess for environmental or other risks Fall/safety education for patient/family/SO Problem: Pain Goal: Patient's Pain/Discomfort is Manageable Outcome: Progressing Flowsheets (Taken 10/31/2022 0454 by Jessica Mccann RN) Patient's Pain/Discomfort is Manageable: Assess pain level Include patient/family/caregiver in decisions related to pain management Provide Emotional/Spiritual Support Offer non-pharmocological pain management interventions Pain Consult Administer medications as ordered Reassess patient's response and tolerance to discomfort * OIL GAS AND PIPE TESTER Treatment Note - [facility] - 11/03/2022 1:08 PM CDT Speech Language Pathologist Treatment Patient Name: Esperanza Chaparro Patient Birthdate: 1955 Patient Subjective Report - I want one right now (regarding a cigarette). Pain Assessment Pain Context: Therapy Assessment Prior to Treatment (11/03/22 1308) Pain Assessment: NRS 0-10 (11/03/22 1308) Pain Score: 4 - Moderate Pain (11/03/22 1308) Pain Severity - NRS (Calculated): Moderate (11/03/22 1308) Pain Type: Acute pain (11/03/22 1308) Pain Location: Buttocks (11/03/22 1308) Pain Descriptors: Aching (11/03/22 1308) Pain Onset: Ongoing (11/03/22 1308) Pain Frequency: Constant/continuous (11/03/22 1308) Pre-therapy pain intervention required: Other (Comment) (RN aware) (11/03/22 1308) Pain Interventions Education Provided: Patient (11/03/22 1355) Non-Pharmacologic Pain Interventions: Distractions, Position/Reposition (11/03/22 1355) Emotional/Spiritual Pain Interventions: Emotional Support (11/03/22 1355) Cognitive Communication: Immediate memory, Short-term memory, Insight, Processing information of increased length or complexity, Semi-complex to complex attention, Task persistence and Word problems Dysphagia Treatment: Swallow strategy training, Oral care and Dysphagia diet training Recommended diet: IDDSI 6 - Soft & Bite-Sized / NDD3, Pills Whole in IDDSI 4 (Pureed / Extremely Thick) and IDDSI 0 - Thin Liquids / All Liquids Compensatory swallowing techniques: Small bites, Small sips, Eat slowly-control rate, Seated upright with all PO intake, Monitor oral spillage, Oral care post PO intake and Other (comment) (Avoid large bore straw) Level of supervision at meals recommended: 1 to 1 assistance due to cognitive or motor deficits Patient/Caregiver Training: Completed with patient, Therapy goals and treatment plan, Oral hygiene,Cognitive strategies, Cognitive Communication Disorder, Dysphagia, Swallow strategies and Current diet ST Narrative:: 1. Patient was seen for therapy in his room, reclined in bed; alert initially but became increasingly lethargic as the session progressed. Patient's mother and sister were present during the session. 2. Patient participated in a complex topic of discussion regarding stroke prevention and stroke risk factors. The Stroke Risk Scorecard from the National Stroke Association was completed this date toincrease patient understanding of risk factors associated with stroke. Lifestyle change recommendations and management were discussed with patient to promote a healthier lifestyle. Patient engaged indiscussion regarding recommendations, demonstrating insight into deficits and appropriate reasoningskills with minimal assistance. The patient was given an opportunity to ask questions during this education session. Following education and discussion, patient was able to recall and state one risk factor associated with strokes (diet). 3. Patient solved basic math reasoning word problems with 3/6 correct + 2/6 with cues. 4. Patient was provided with instruction in performing oromotor resistance exercises for left facial weakness. Patient was able to move the left side of the face with effort. 5. Patient remained in his room with call light and phone left within reach. Bed alarm activated. Patient's mother and sister were present in the room. ST Session Outcomes: Patient/family education progressing, Progressing toward STGs, Tolerated treatment well and Minimal cues during session ST Summary Plan of Care: Continue with current plan of care Pain Evaluation and Follow-up Response to Therapy Interventions: Other (comment) (No change) (11/03/22 3376) Pain Reassessment: 4 (11/03/22 4998) Nursing notified of patient's pain assessment: Other (comment) (Notified nursing assistance to inform RN.) (11/03/22 1355) Therapy Minutes Individual Concurrent Co-Treat Time In : 1308 Time Out: 1355 Breaks/Pauses (Min): 0 mins Total Time with Patient (Min): 47 min Missed Minutes : [address] 11/03/2022 * Team Conference - TRESA Grier - 11/03/2022 11:51 AM CDT Team Conference Note Date: 11/03/2022 Time: 9:41 AM CDT Patient Name: Esperanza Chaparro Date of : 1955 Sex: Male Room/Bed: 319/319-2 Admit Date/Time: 10/28/2022 9:05 PM Patient Active Problem List Diagnosis Date Noted Dysphagia 10/29/2022 Cerebrovascular accident 10/28/2022 Chronic obstructive pulmonary disease 10/12/2022 Coronary arteriosclerosis 10/12/2022 Primary hypertension 12/11/2021 Team Members Present: Attendees: Carolina Garibay MD, Chasity Payne, PharmD, Irlanda Sher, PT, Edenilson Jules, RN,Mehdi Goldstein, OT, [facility] Film Examiner in Attendance: TRESA Grier Patient/Family Present: Patient Present: No Patient's Family/Caregiver Present: No Anticipated Discharge 11/11/2022 Discharge Plan: Discharge Destination Details : Own Home Back-up Discharge Destination: SNF/SNU Potential Barriers to Return to Prior Living (Use comments to be specific): Caregiver limitations;Capacity for self care;Mobility challenge;Communication challenge;Architectural/environmental barrier(s);Home modification challenge;DME issue;Potential need for skills/non-skilled services;Potential need for 24 hour care;Financial resources;Insurance limitations;Psychosocial issues Clinical Barriers : Clinical needs exceed caregiver capacity;Instability Barriers: Dysphagia, increased pain in shoulders and hips, unable to feed self, urine retention, incontinent of bowel/bladder, total/dependent for all movement, dependent for all self care, poor attention, spillage from left side with eating DME Recommendations: TBD Services Recommended at Discharge: Home Care and Snf Facility Copping Machine Operator Training: To be scheduled F/U Appointments for Post Discharge: PCP Suicide Risk Assessment: No Concerns identified at this time Pain Management: Pain reported as adequately managed at this time. Medications: Current Facility-Administered Medications: acetaminophen (TYLENOL) tablet 650 mg, 650 mg, Oral, Q8H BERNARDO, Marion Perry MD, 650 mg at 11/03/22 0538 Alogliptin Benzoate (NESINA) tablet 12.5 mg, 12.5 mg, Oral, Once a day, Soto Meng MD, 12.5 mg at11/03/22 0829 aspirin EC tablet 81 mg, 81 mg, Oral, Once a day, Marion Perry MD, 81 mg at 11/03/22 0829 bismuth subsalicylate (PEPTO BISMOL) 262 MG/15ML suspension 30 mL, 30 mL, Oral, Q6H PRN, Marion Perry MD calcium carbonate (TUMS) chewable tablet 1,000 mg, 1,000 mg, Oral, Q2H PRN, Marion Perry MD, 1,000 mg at 11/01/22 1313 carvedilol (COREG) tablet 3.125 mg, 3.125 mg, Oral, 2 times per day, Raul Vo MD, 3.125 mg at11/03/22 0828 nicotine (NICODERM CQ) patch 21 mg, 21 mg, Transdermal, Once a day, 21 mg at 11/03/22 0828 AND Check Patch Placement, , Transdermal, 2 times per day, Marion Perry MD, Check Patch Placement at 11/03/22 0831 cholecalciferol (VITAMIN D3) capsule 50,000 Units, 50,000 Units, Oral, Weekly, Soto Meng MD, 50,000 Units at 10/30/22 1100 clopidogrel (PLAVIX) tablet 75 mg, 75 mg, Oral, Once a day, Marion Perry MD, 75 mg at 11/03/22 0828 cyclobenzaprine (FLEXERIL) tablet 5 mg, 5 mg, Oral, TID PRN, Raul Vo MD, 5 mg at 11/01/22 1805 dextrose (GLUTOSE) 40 % oral gel 15 g, 15 g, Oral, PRN, Marion Perry MD dextrose 50 % IV solution 12.5 g, 12.5 g, Intravenous, PRN OR dextrose 50 % IV solution 25 g, 25 g, Intravenous, PRN, Marion Perry MD Fluticasone-Salmeterol (AIRDUO RESPICLICK) 232-14 MCG/ACT inhaler 1 puff, 1 puff, Inhalation, RT BID, Marion Perry MD, 1 puff at 11/03/22 0837 gabapentin (NEURONTIN) capsule 200 mg, 200 mg, Oral, 3 times per day, Marion Perry MD, 200 mgat 11/03/22 0826 glipiZIDE (GLUCOTROL) tablet 5 mg, 5 mg, Oral, Once a day, Soto Meng MD, 5 mg at 11/03/22 0829 glucagon injection reconstituted solution 1 mg, 1 mg, Intramuscular, PRN, Marion Perry MD hemorrhoidal ointment, , Apply externally, TID PRN, Marion Perry MD, Given at 10/30/22 1342 heparin (porcine) injection 5,000 Units, 5,000 Units, Subcutaneous, Q8H BERNARDO, Marion Perry MD,5,000 Units at 11/03/22 0538 insulin lispro injection 0-12 Units, 0-12 Units, Subcutaneous, TID AC, 4 Units at 10/31/22 1523 AND POCT glucose, , , TID AC, Soto Meng MD ipratropium-albuterol (DUO-NEB) 0.5-2.5 mg/3 mL nebulizer solution 3 mL, 3 mL, Inhalation, Q 4 hours PRN, Marion Perry MD, 3 mL at 11/02/22 2344 lidocaine (LIDOCARE) 4 % patch 1 patch, 1 patch, Transdermal, Once a day, Marion Perry MD, 1 patch at 11/03/22 0830 lidocaine (XYLOCAINE) 1 % injection 8 mL, 8 mL, Other, Once, Carolina Garibay MD losartan (COZAAR) tablet 25 mg, 25 mg, Oral, Once a day, Valencia Johnson MD, 25 mg at 11/03/22 0830 melatonin tablet 9 mg, 9 mg, Oral, Nightly, Marion Perry MD, 9 mg at 11/02/22 2138 oxyCODONE (ROXICODONE) immediate release tablet 5 mg, 5 mg, Oral, Q4H PRN, Marion Perry MD, 5mg at 11/03/22 0835 rosuvastatin (CRESTOR) tablet 40 mg, 40 mg, Oral, Once a day, Marion Perry MD, 40 mg at 11/03/22 0827 simethicone (MYLICON) chewable tablet 80 mg, 80 mg, Oral, 4x Daily PRN, Marion Perry MD, 80 mg at 10/31/22 1818 sodium chloride 0.9 % infusion, 100 mL/hr, Intravenous (Continuous Infusion), Continuous, Marion Perry MD, Last Rate: 100 mL/hr at 11/03/22 0737, 100 mL/hr at 11/03/22 0737 tamsulosin (FLOMAX) 24 hr capsule 0.4 mg, 0.4 mg, Oral, After Breakfast, Marion Perry MD, 0.4mg at 11/03/22 0827 triamcinolone acetonide (KENALOG-40) injection 40 mg, 40 mg, Intra-articular, Once, Carolina Garibay MD Umeclidinium [place] (INCRUSE ELLIPTA) 62.5 MCG/ACT inhaler 62.5 mcg, 1 puff, Inhalation, RT Daily,Marion Perry MD, 62.5 mcg at 11/03/22 0837 Pharmacy: Latest Pharmacy IDT Documentation None Nursing Team Conference: Bladder Continent: Incontinent Bowel Continent: Incontinent Pain: Patient denies pain Opiate Use Anticipated After Discharge: Possible Nutrition Intake: Oral Nutrition Level of Assistance: Moderate assistance Respiratory Interventions: Metered dose inhaler Skin Interventions: Weight shift/Turned respositioned every 2 hours;Specialty bed-mattress Safety Status: Follows instructions Safety Interventions: Education;Supervised activity;Performed rounding Cognitive Orientation: Person;Place;Time;Date Cognitive Deficits Observed: None Quality of Sleep: Interrupted Approximate Hours Slept: 6 hours Patient-Family barriers to learning: None Is patient on dialysis?: No PT Weekly Progress Note PT Weekly Progress Note by Irlanda Sher PT at 11/02/2022 5:11 PM Author: Irlanda Sher PT Service: Therapy Author Type: Electric Repair Supervisor Filed: 11/02/2022 5:25 PM Date of Service: 11/02/2022 Continuous Improvement Consultant: Irlanda Sher PT (Electric Repair Supervisor) PT Weekly Progress Note Patient Name: Esperanza Chaparro Patient Birthdate: 1955 PT CURRENT FUNCTIONAL STATUS: PT Current Functional Status: PT Current Functional Status: BALANCE: sitting at edge of bed: total assist of two to transition tositting at EOB. Strong push left with initial sit. Max to maintain. Posture: rounded, cues for upright head position and maintains grossly 30 seconds. Left inattention noted. With cues attempts wt shift right to achieve midline but max to maintain. BED MOBILITY: Sit to/from supine with max/total assist of two for trunk and LE support. Pt with strong push left with initial sit Rolling with to left with use of rail and mod/max assist to complete movement. Painful left shoulder. Total assist to roll right for left side support and complete motion. TRANSFERS Sit to/from stand: not safe to attempt this date due to low level and hypotension this am Stand pivot with not safe to attempt this date due to safety. W/c to/from tilt in space w/c with use of cee, dependent assist. Car transfer not safe to attempt GAIT Unable to attempt stance this date due to level of assist required/safety, balance and hypotension. Unsafe to attempt ambulation 10, 50',150' Ambulates 10' on compliant surfaces: not safe to attempt Unsafe to retrieve object from floor STAIRS Ascends/descends curb: not safe to attempt Not safe to attempt 1, 4, 12 steps WHEELCHAIR MOBILITY: requires use of tilt in space w/c with left half lap tray for support. Total assist for any mobility in w/c. OUTCOME MEASURES: AGITATED BEHAVIOR SCALE 18 POSTURAL ASSESSMENT OF STROKE PROGRESS: Mr. Chaparro is tolerating therapy fair due to pain. He works to assist with movement but pain and left hemiparesis hinder. He will continue to benefit from intensive therapy to maximize functional gains. Factors in Goal Achievement: Facilitating Factors: None Barriers: Pain, Diminished endurance, Balance deficits, Motor control deficits and Strength limitations Date Last Assessed: 11/02/2022 CARE Score Mg: 6: Independent. Walnut provides no assistance with tasks. A device may or may not have been used. 5: Set-up or clean-up assistance. Walnut sets up or cleans up, but does not assist with tasks. Walnut may have assisted prior to or following the activity. 4: Supervision or touching assistance. Walnut provides verbal cues or touching/steadying or contactguard assistance. Assistance may be provided throughout the activity or intermittently. 3: Partial/moderate assistance. Walnut does less than half the effort. Walnut lifts, holds, or supports trunk or limbs, but provides less than half the effort. 2: Substantial/maximal assistance. Walnut does more than half the effort. Walnut lifts or holds trunk or limbs, and provides more than half the effort. 1: Dependent. Walnut does all of the effort, or the assistance of two or more helpers is required for the patient to complete the activity. -: Inconsistent or incomplete documentation Activity not attempted values: 7: Patient refused 9: Not applicable - Not attempted and the patient did not perform this activity prior to the current illness, exacerbation, or injury. 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: Goal Status on Admission Current Status Car Transfer - CARE Score: 88 (10/29/221746 : Irlanda Sher, PT) Car Transfer - CARE Score: 88(11/02/221722) Walk 10 Feet LTG: Dependent (pt will ambulate 10ft with hemiaide and mod/max of two) Walk 10 Feet -CARE Score: 88 (10/29/221746 : Irlanda Sher, PT) Walk 10 Feet - CARE Score: 88 (11/02/221722) Walk 50 Feet with Two Turns - CARE Score: 88 (10/29/221746 : Irlanda Sher, PT) Walk 50 Feet with Two Turns - CARE Score: 88 (11/02/221722) Walk 150 Feet - CARE Score: 88 (10/29/221746 : Irlanda Sher PT) Walk 150 Feet - CARE Score: 88 (11/02/221722) Walking 10 Feet on Uneven Surfaces - CARE Score: 88 (10/29/221746 : Irlanda Sher PT) [id number] Feet on Uneven Surfaces - CARE Score: 88 (11/02/221722) 1 Step (Curb) - CARE Score: 88 (10/29/221746 : Irlanda Sher PT) 1 Step (Curb) - CARE Score: 88 (11/02/221722) 4 Steps - CARE Score: 88 (10/29/221746 : Irlanda Sher PT) 4 Steps - CARE Score: 88 () 12 Steps - CARE Score: 88 (10/29/221746 : Irlanda Sher PT) 12 Steps - CARE Score: 88 (11/02/221722) Picking Up Object - CARE Score: 88 (10/29/221746 : Irlanda Sher PT) Picking Up Object - CAREScore: 88 (11/02/221722) Wheel 50 Feet with Two Turns LTG: Partial/moderate assistance (pt propel w/c 60ft with right UE/LE and mod assist for guidance.) Wheel 50 Feet with Two Turns - CARE Score: 88 (10/29/221746 : Irlanda Sher PT) Wheel 50 Feet with Two Turns - CARE Score: 1 (11/02/221722) Wheel 150 Feet - CARE Score: 88 (10/29/221746 : Irlanda Sher PT) Wheel 150 Feet - CARE Score: 1 (11/02/221722) Additional Goals & Status: N/A PT Other Residential Goals Flowsheet Row Most Recent Value Other PT Residential Goals Other Goals - Offset Lithographic 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 Residential 1, Offset Lithographic 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 2, Residential 3, Residential 4 Filed on: 10/29/20221748 Other Residential Goal 1 w/c to/from level surface with transfer board and mod assist Filed on: 10/29/20221748 Other Residential Goal 1 Status Established Filed on: 10/29/20221748 Other Residential Goal 2 sit to stand to hemiaide and mod assist of two Filed on: 10/29/20221748 Other Residential Goal 2 Status Established Filed on: 10/29/20221748 Other Residential Goal 3 tolerate upright position in regular w/c vs tilt in space w/c when out of bed Filed on: 10/29/20221748 Other Residential Goal 3 Status Established Filed on: 10/29/20221748 Other Residential Goal 4 sit to/from supine with mod assist. Filed on: 10/29/20221748 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 Lithographic 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 Goal 4 Status Established Filed on: 10/29/20221748 PT Short Term Goal 1: Details: Sit to/from supine with max assist Expected Achievement Date: 11/09/2022 Goal Status: Not Achieved PT Short Term Goal 2: Details: W/c to/from level surface with use of transfer board and max assist Expected Achievement Date: 11/09/2022 Status: Not Achieved PT Short Term Goal 3: Details: Sit to cable tv installer parallel bars with max assist. Expected Achievement Date: 11/09/2022 Status: Not Achieved PT Short Term Goal 4: Details: Pt ambulate 5ft in parallel bars with mod/max assist of two. Expected Achievement Date: 11/09/2022 Goal Status: Not Achieved Duration Expiration Date: 11/18/2022 IRLANDA SHER, PT 11/02/2022 OT Weekly Progress Note OT Weekly Progress Note by Ekaterina Forman OT at 11/02/2022 3:50 PM Author: Ekaterina Forman OT Service: -- Author Type: Occupational Therapist Filed: 11/02/2022 3:56 PM Date of Service: 11/02/2022 Continuous Improvement Consultant: Ekaterina Forman OT (Occupational Therapist) Occupational Therapy Weekly Progress Note Patient Name: Esperanza Chaparro Patient Birthdate: 1955 OT Current Functional Status: Mr. Chaparro's current status is as follows: EATING: with supervision using right UE to feed self, increased time to complete ORAL HYGIENE: with supervision using right UE and cues for sequencing, increased time to complete TOILETING: with dependent assistance for all aspects of toileting SHOWER/BATHING: with dependence at bed level, he is able to wash face however, with cues for thoroughness, requires assist of 2 for washing/drying LB. UPPER BODY DRESSING: with dependent assistance for all aspects of UB dressing, Mr. Chaparro exhibited moderate assistance 1 time with donning gown on 10/31/22. However, on 11/02/22, Mr. Chaparro was dependent with donning/doffing hospital gown. He required maximal assistance with sitting balance. LOWER BODY DRESSING: with dependent assistance for all aspects of LB dressing FOOTWEAR: with dependent assistance for all aspects of footwear. ROLL LEFT/RIGHT: with dependence, requires assistance of 2 for rolling to right and moderate assistance to roll left SIT TO LYING: with dependent assistance LYING TO SITTING: with dependent assistance SIT TO STAND: with dependent assistance, assistance of 2 BED TO CHAIR TRANSFER: with depenent assistance, uses cee lift in hosptial room TOILET TRANSFER: not performed due to safety concerns. Mr. Chaparro presents with flaccid left UE with increased complaints of pain with movement and increased edema noted throughout left UE. Mr. Chaparro perseverates on pain, especially on buttocks and frequently requests to be repositioned, however, once repositioned, Mr. Chaparro will push himself back towards left side and complain of continued pain. Difficulty with redirection. Decreased insight and safety as well as problem solving and memory. Mr. Chaparro requires maximal assistance of another for sitting balance in w/c. Limitations to discharge include decrease selfcare, transfers, balance, endurance, safety/cognition, left UE function and Mr. Chaparro would benefit from continued OT services to work on max imizing functional independence. Facilitating Factors in Goal Achievement: Support of family or caregiver Barriers to Goal Achievement: Pain, ROM limitations, Strength limitations, Balance deficits, Motor control deficits, Impaired skin integrity, Tone deficits, Diminished endurance, Decreased patient understanding, Cognitive deficits, Decreased safety awareness and Behavioral issues Date Last Assessed: 11/02/2022 Patient needs assistance with the following activities: Activities of daily living, Going out in the community, Memory, Vision, Use of bathroom equipment, Use of patient wine pasteurizer, Positioning, Rolling,Head control, Sitting balance and Reaching Will patient require a prosthetic or orthotic device upon discharge: No CARE Score Mg: 6: Independent. Walnut provides no assistance with tasks. A device may or may not have been used. 5: Set-up or clean-up assistance. Walnut sets up or cleans up, but does not assist with tasks. Walnut may have assisted prior to or following the activity. 4: Supervision or touching assistance. Walnut provides verbal cues or touching/steadying or contactguard assistance. Assistance may be provided throughout the activity or intermittently. 3: Partial/moderate assistance. Walnut does less than half the effort. Walnut lifts, holds, or supports trunk or limbs, but provides less than half the effort. 2: Substantial/maximal assistance. Walnut does more than half the effort. Walnut lifts or holds trunk or limbs, and provides more than half the effort. 1: Dependent. Walnut does all of the effort, or the assistance of two or more helpers is required for the patient to complete the activity. -: Inconsistent or incomplete documentation Activity not attempted values: 7: Patient refused 9: Not applicable - Not attempted and the patient did not perform this activity prior to the current illness, exacerbation, or injury. 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: Goal Status on Admission Current Status Eating - CARE Score: 4 (10/29/22 1021 : Luke Robertson OT) Eating - CARE Score: 4 (11/02/22 1551) Oral Hygiene - CARE Score: 3 (10/29/22 1021 : Luke Robertson OT) Oral Hygiene - CARE Score: 4 (11/02/22 1551) Toileting Hygiene LTG: Partial/moderate assistance Toileting Hygiene - CARE Score: 1 (10/29/22 1021: Luke Robertson OT) Toileting Hygiene - CARE Score: 1 (11/02/22 1551) Shower/Bathe Self LTG: Partial/moderate assistance Shower/Bathe Self - CARE Score: 1 (10/29/22 1021: Luke Robertson OT) Shower/Bathe Self - CARE Score: 1 (11/02/22 1551) Upper Body Dressing LTG: Partial/moderate assistance Upper Body Dressing - CARE Score: 1 (10/29/22 1021 : Luke Robertson OT) Upper Body Dressing - CARE Score: 1 (11/02/22 155) Lower Body Dressing LTG: Partial/moderate assistance Lower Body Dressing - CARE Score: 1 (10/29/22 1021 : Luke Robertson OT) Lower Body Dressing - CARE Score: 1 (11/02/221550) Putting On/Taking Off Footwear LTG: Partial/moderate assistance Putting On/Taking Off Footwear - CARE Score: 1 (10/29/22 1021 : Luke Robertson OT) Putting On/Taking Off Footwear - CARE Score: 1 (11/02/22 155) Roll Left and Right - CARE Score: 1 (10/29/22 1021 : Luke Robertson OT) Roll Left and Right - CARE Score: 1 (11/02/221550) Sit to Lying - CARE Score: 1 (10/29/22 1021 : Luke Robertson OT) Sit to Lying - CARE Score: 1 (11/02/221550) Lying to Sitting on Side of Bed - CARE Score: 1 (10/29/22 1021 : Luke Robertson OT) Lying toSitting on Side of Bed - CARE Score: 1 (11/02/221550) Sit to Stand - CARE Score: 88 (10/29/22 1021 : Luke Robertson OT) Sit to Stand - CARE Score:1 (11/02/221550) Chair/Cjx-et-Hpfje Transfer LTG: Partial/moderate assistance Chair/Dqw-xg-Jjvfh Transfer - CARE Score: 88 (10/29/22 1021 : Luke Robertson OT) Chair/Wfs-bf-Pmwws Transfer - CARE Score: 1 (11/02/221550) Toilet Transfer LTG: Partial/moderate assistance Toilet Transfer - CARE Score: 88 (10/29/22 1021 : Luke Robertson OT) Toilet Transfer - CARE Score: 88 (11/02/221550) Additional Goals & Status: N/A OT Short Term Goal 1: Focus: Toileting Hygiene Level of Assistance to Meet Short Term Goal: Physical assistance 50%-74% Expected Achievement Date: 11/09/2022 Goal Status: Not Achieved OT Short Term Goal 2: Focus: Shower/Bathe Level of Assistance to Meet Short Term Goal: Physical assistance 50%-74% Expected Achievement Date: 11/09/2022 Goal Status: Not Achieved OT Short Term Goal 3: Focus: Upper Body Dressing Level of Assistance to Meet Short Term Goal: Physical assistance 50%-74% Expected Achievement Date: 11/09/2022 Goal Status: Not Achieved OT Short Term Goal 4: Focus: Lower Body Dressing Level of Assistance to Meet Short Term Goal: Physical assistance 50%-74% Expected Achievement Date: 11/09/2022 Goal Status: Not Achieved OT Short Term Goal 5: Focus: Toilet Transfer Level of Assistance to Meet Short Term Goal: Physical assistance 50%-74% Expected Achievement Date: 11/09/2022 Goal Status: Not Achieved Duration Expiration Date: 11/26/2022 EKATERINA FORMAN, OT 11/02/2022 OIL GAS AND PIPE TESTER Weekly Progress Note OIL GAS AND PIPE TESTER Weekly Progress Note by ST Tierney at 11/02/2022 3:01 PM Author: [facility] Tier[facility] Service: Therapy Author Type: Speech and Language Pathologist Filed: 11/02/2022 3:08 PM Date of Service: 11/02/2022 Continuous Improvement Consultant: ST Tierney (Speech and Language Pathologist) Speech Language Pathologist Weekly Progress Note Patient Name: Esperanza Chaparro Patient Birthdate: 1955 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 Chaparro is a 67 year old male referred to speech therapy for evaluation and treatment following recent hospitalization with a diagnosis of CVA. Patient presented to the hospital initially on 10/12/22 due to a peritonsillar abscess, reporting dysphagia symptoms with liquids and solids. While there, he developed left sided weakness with confirmation of CVA. He was living with his sister prior to admission and was independent with ADLs and IADLs and driving. 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 Initial assessment revealed the following functional status: SWALLOWING: Current diet: SOFT & BITE SIZED with THIN LIQUIDS (IDDSI 6/0) Oral phase- Mild spillage and pocketing from the left side observed with regular solid (crow stewarter); mild spillage of thin liquid from the left side. Pharyngeal phase- No clinical signs of aspiration observed with regular solid (crow cracker); immediate cough noted with drinks of thin liquid from large bore straw; improvement noted when drinkingliquid from cup edge. MASA score of 170 indicates mild dysphagia with no aspiration risk. COMMUNICATION: COMPREHENSION- SUPERVISION. Patient is able to comprehend information regarding basic needs over 90% of the time. Increased difficulty noted with comprehension of complex or abstract information. Yes/No Questions: Basic 100%; Complex 100%. Following Commands: Simple- 2/2 ; Complex- 2/2 Identification of pictures/objects: 4/4 Comprehension of conversation: WNL for basic information. Reading comprehension: Impaired due to left inattention/neglect. EXPRESSION- SUPERVISION. Patient is able to express information regarding basic needs over 90% of the time. Increased difficulty noted with comprehension of complex or abstract information. Patient presents with mild dysarthria but mostly intelligible speech. Automatic Speech: WNL Repetition: WNL Naming: Confrontational- WNL Speech Intelligibility: Mostly intelligible; mildly reduced articulatory contacts. Writing: Not assessed COGNITION: PROBLEM-SOLVING- MODERATE ASSISTANCE. Patient is able to solve routine problems 50-74% of the time. Attention: Reduced secondary to fatigue and discomfort. Verbal Problem-Solving: Patient was able to provide logical and complete responses for basic and multi-factor problem-solving situations. Thought Organization: Divergent Naming- Patient was able to name 6 fruits in one minute period (normal is approximately 15); Convergent naming- 3/3 correct. Safety Awareness: Patient was able to verbalize use of 911, use of call light, and fall risk. Sequencing: Not assessed Math Reasoning: Not assessed MEMORY: MODERATE ASSISTANCE. Patient is able to recognize and remember people, routines, and requests 50-74% of the time. Orientation: Oriented to person, temporal information with exception of the day of the week; not oriented to place (said [facility]). Delayed Recall: Able to recall 0/3 unrelated words following a 5 minute delay; 2/3 with cues. Paragraph Retention: Patient was able to recall 6/20 details from a paragraph presented verbally; answered open-ended questions regarding the paragraph with 3/6 correct. SOCIAL INTERACTION: MINIMAL ASSISTANCE. Patient presented with fatigue and discomfort during the evaluation. He required frequent encouragement to continue with assessment. PROGRESS 11/02/22: Evaluation was completed on 10/29/22. All goals remain appropriate to continue at this time due to limited number of sessions thus far. Patient is distracted by pain and discomfort when up in wheelchair during therapy sessions. He requires frequent encouragement for task persistence. Patient requires assistance with tray set-up and at least some degree of supervision/assistance with feeding due to left visual impairment and left side weakness. RECOMMENDATION: Mr. Chaparro has good potential for improvement in rehab and will benefit from speech therapy services 45-90 minutes daily, 5 days per week in individual or group sessions as appropriate.Plan of care to include patient and family education; use of compensatory strategies; interventionsfor improved strength and movement of left facial musculature; interventions for improved swallowing function to manage least restrictive solid and liquid consistencies; and cognitive retraining for functional reasoning and memory skills to increase safety and independence at discharge. The Patient: [ ]is able to state 2 risk factors without VCs prior to discharge [ ]requires cues to recall 2 stroke risk factors [ X] Is unable to state stroke risk factors due to communication or cognitive deficits Facilitating Factors in Goal Achievement: Patient compliance Barriers to Goal Achievement: Pain, Other (comment) and Communication deficits (cognition) Date Last Assessed: 11/02/2022 Residential Goals: Goal Status on Evaluation Current Progress Towards Goal Level of Assistance to Meet Problem Solving: Min assist (10-24%) Problem Solving Details: Improve functional problem-solving skills to minimal assistance to solve routine problems at least 75% of the time. Problem Solving Expected Achievement Date: 11/25/22 Moderate assistance Continue to address Level of Assistance to Meet Memory: Min assist (10-24%) Memory Details: Improve functional memory skills to minimal assistance to recognize and remember people, routines, and requests at least 75% of the time. Memory Expected Achievement Date: 11/25/22 Moderate assistance Continue to address Swallowing Details: Safely manage regular texture solids and thin liquids with no clinical signs ofdysphagia. Swallowing Expected Achievement Date: 11/25/22 Soft & Bite Sized with thin liquids Continue to address Additional Goal Status: N/A OIL GAS AND PIPE TESTER Short Term Goals: Problem Solving: Details: Complete functional problem-solving/reasoning tasks with 70% accuracy. Expected Achievement Date: 11/09/2022 Goal Status: Not Achieved Memory: Details: Complete short term memory tasks with 70% accuracy. Expected Achievement Date: 11/09/2022 Goal Status: Not Achieved Additional Cognition: Details: Participate in further assessment of cognitive skills using a standardized measure. Expected Achievement Date: 11/09/2022 Goal Status: Not Achieved Swallowing: Details: Safely manage current diet and thin liquids using compensatory strategies with no clinicalsigns of dysphagia. Expected Achievement Date: 11/09/2022 Goal Status: Partially Achieved Other STG 1: Focus: Swallowing Details: Participate in NMES (PENS) to stimulate left facial musculature. Expected Achievement Date: 11/09/2022 Goal Status: Not Achieved Other STG 2: Focus: Additional Cognition Level of Assistance to Meet Other STG 2: Independent Details: Recall 2 factors for stroke prevention independently. Expected Achievement Date: 11/09/2022 Goal Status: Not Achieved Other STG 3: Focus: Additional Cognition Level of Assistance to Meet Other STG 3: Min assist (10-24%) Details: Complete tasks to target left attention with minimal assistance. Expected Achievement Date: 11/09/2022 Goal Status: Partially Achieved Duration Expiration Date: 12/26/[address] 11/02/2022 Respiratory Team Conference: Nutrition Team Conference: Dietary Orders (From admission, onward) Start Ordered 10/29/22 1700 Nutritional supplement Oral 3 times daily with meals Comments: Send vanilla ensure high protein TID End/Expires: Until Specified Question Answer Comment Administration Route: Oral Place order in third constitution party system. Done 10/29/22 1346 10/28/222111 Adult Diet Regular; 6 Soft & Bite-Sized (NDD III); 0 Thin (All Liquids) Diet effective now End/Expires: Until Specified References: [employer] Website Question Answer Comment Diet Type: Regular Diet Texture: 6 Soft & Bite-Sized (NDD III) Liquid Consistency: 0 Thin (All Liquids) Place order in third constitution party system. Done 10/28/222110 Height: 5' 11 (180.3 cm) Admit Weight: 228 lb 4 oz (103.5 kg) Current Weight: 230 lb (104.3 kg) Body mass index is 32.08 kg/m??. Calorie Count: Plan of Care - Nutrition Care Plans 1 Author: Luke Elizalde RD Service: -- Author Type: Registered Dietitian Filed: 10/29/2022 1:39 PM Date of Service: 10/29/2022 1:39 PM Status: Signed Continuous Improvement Consultant: Luke Elizalde RD (Registered Dietitian) Problem: Inadequate Oral Intake Description: Oral food/beverage intake that is less than established reference standards or recommendations based on physiological needs. Related to: Decreased ability to consume sufficient energy, e.g., increased nutrition needs due to prolonged catabolic illness As evidenced by: estimated protein needs of 90-95 g/day. Goal: Improve Nutritional Status Outcome: Progressing Flowsheets (Taken 10/29/2022 1338) Meals and Snacks: (soft and bite sized (6) diet) General healthful diet Medical Food Supplement Therapy: (vanilla Ensure high protein TID) Commercial beverage/Oral nutrition supplement Wound: Cosigned by Carolina Garibay MD at 11/03/2022 2:47 PM CDT Associated attestation - Carolina Garibay MD - 11/03/2022 3:47 PM EDT A team conference was held on 11/03/2022 and included members of the multidisciplinary team identified in the attendance section of this note. Issues related to Mr. Chaparro's status include; Patient Active Problem List Diagnosis Cerebrovascular accident Chronic obstructive pulmonary disease Coronary arteriosclerosis Primary hypertension Dysphagia Mr. Sainis progress toward rehabilitation goals, impediments to attaining these goals, and associated revisions to the treatment plans and goals were discussed by the team. Details of this multidisciplinary process are included below. Issues of particular significance at this time regarding Mr. Mann progress towards rehabilitation goals and treatment plan include: Discussed about functional gains , discharge planning ,DME , follow up therapies and current medical condition during team conference . As discussed during this team conference, I concur with the decisions set forth by the members of the multidisciplinary team. Mr. Chaparro continues to require frequent physician visits and 24 hours per day acute rehabilitation nursing care in order to meet medical needs and progress toward the achievement of the rehabilitation goals. CAROLINA GARIBAY MD 11/03/2022 2:47 PM CDT * OT Treatment Note - Luke Robertson OT - 11/03/2022 11:15 AM CDT Occupational Therapy Treatment Patient Name: Esperanza Chaparro Patient Birthdate: 1955 Patient Subjective Report - I think I may have gout. My toe is hurting me. Pain Assessment Pain Context: Therapy Assessment Prior to Treatment (11/03/221123) Pain Assessment: NRS 0-10 (11/03/221123) Pain Score: 8 (11/03/221123) Pain Severity - NRS (Calculated): Severe (11/03/221123) Pain Location: Arm, Buttocks, Toe (Comment which one) (11/03/221123) Pain Orientation: (R big toe, L UE, buttocks, and groin) (11/03/221123) Pain Interventions Education Provided: Patient (11/03/221123) Non-Pharmacologic Pain Interventions: Distractions, Exercise/Activity, Position/Reposition (11/03/221123) ADL Training: ADL Training Narrative: Eating: supervision, cues for locating items on left side of tray. Uses R UE only. OT Therapeutic Activity: Therapeutic Exercise: Pt was repositioned in w/c frequently b/c of c/o pain in buttocks. (Pt was tilted in w/c for pressure relief). Pt participated in L UE PROM. He tolerated about 90 degrees of shoulder flexion and abduction and some external rotation (about 1/2 range), full supination/pronation and wrist and finger movements. No AROM noted in L UE. Fingernails trimmed on L hand, but unable to cut fingernails on R hand b/c of very thick nails. Yacht Rigger strength: 40# with R UE, 0# with L UE. 9 hole peg test: unable with L UE, able to do in 3 min with R hand, cues for visual compensation (initially missed the holes on left side of board). Treatment, Outcomes and Plan: OT Narrative:: Mr Chaparro tolerated session well. He was calm and cooperative throughout session. He continues to present with left inattention, poor sitting balance in wheelchair and no active movementin L UE. Continued intensive OT recommended to maximize functional independence and safety. OT Treatment Outcomes:: Safety device reapplied, Patient tolerated treatment well, Goals met for this session and Patient is progressing toward STG(s) OT Summary Plan of Care: Continue with current plan of care Pain Evaluation and Follow-up Pain Reassessment: 9 (back, neck, buttocks, L arm) (11/03/22 1124) Nursing notified of patient's pain assessment: Primary Nurse (11/03/22 1124) Therapy Minutes Individual Concurrent Co-Treat Individual (OT) Time In : 1115 Time Out: 1202 Total Time with Patient (Min): 47 min LUKE ROBERTSON OT 11/03/2022 * Plan of Care - Edenilson Jules RN - 11/03/2022 10:36 AM CDT Problem: Infection Goal: Absence of infection and prevention of transmission during hospitalization Outcome: Progressing Problem: Knowledge Deficit Goal: Patient and/or family demonstrate readiness to learn Outcome: Progressing Goal: Patient and/or family verbalizes understanding of education, and/or performs desired skill Outcome: Progressing Problem: Discharge Planning Goal: Discharge to home or other facility with appropriate resources Outcome: Progressing Goal: client services assistant will develop a plan to decrease their burden and enhance comfort in role Outcome: Progressing Problem: Delirium Goal: Prevent and Manage Delirium Outcome: Progressing Problem: Fall Safety: [place] Precautions Goal: Free from fall injury Outcome: Progressing Problem: Fall Huddle Goal: Free from Fall Injury Outcome: Progressing Problem: Fall Prevention: Fatigue Bundle Goal: Patient will be free from Fall Injury Outcome: Progressing Problem: Fall Safety: [place] Precautions Goal: Free from fall injury Outcome: Progressing Problem: Fall Huddle Goal: Free from Fall Injury Outcome: Progressing Problem: Pain Goal: Patient's Pain/Discomfort is Manageable Outcome: Progressing Problem: Knowledge Deficit Goal: Patient/family/caregiver demonstrates understanding of disease process, treatment plan, medications, and discharge instructions Outcome: Progressing Problem: Potential for Compromised Skin Integrity Goal: Skin integrity is maintained or improved Outcome: Progressing Goal: Nutritional status is improving Outcome: Progressing Problem: Urinary Incontinence Goal: Perineal skin integrity is maintained or improved Outcome: Progressing Problem: Bowel Incontinence Goal: Perineal Skin Integrity is Maintained or Improved Outcome: Progressing Problem: Fall Prevention: Neglect/Hemiparesis Bundle Goal: Patient will be free from Fall Injury Outcome: Progressing * PT Treatment Note - Irlanda Sher, PT - 11/03/2022 9:00 AM CDT PT Treatment Patient Name: Esperanza Chaparro Patient Birthdate: 1955 Patient Subjective Report - pt reports pain in left shoulder, left groin, back. But stated ok to continue with therapy, wants to get out of the chair. Pain Assessment Pain Context: Therapy Assessment Prior to Treatment (11/03/22899) Pain Assessment: NRS 0-10 (11/03/22899) Pain Score: 10 (11/03/22899) Pain Severity - NRS (Calculated): Severe (11/03/22899) Pain Location: Groin, Back, Shoulder (11/03/22899) Pain Orientation: Left, Lower (11/03/22899) Pain Descriptors: Aching, Sore (11/03/22899) Pain Onset: Ongoing (11/03/22899) Pain Frequency: Constant/continuous (11/03/22899) Functional Impact: Turning, Transfers, Sitting (11/03/22899) Pre-therapy pain intervention required: Patient expressed pain is tolerable/able to proceed, Nurse notified (11/03/22899) Pain Interventions Non-Pharmacologic Pain Interventions: Position/Reposition (11/03/22999) Emotional/Spiritual Pain Interventions: Emotional Support (11/03/22 1000) Overall Cognitive Status: Impairments impacting function Comment: Very distractible, requiring constant redirection. Bed Mobility Comment: Sit to/from supine with max assist of 2-3 for trunk support, LE lift assist. Strong push with right side and resistive during position change requiring increased support. Rolls left with cues and mod/max assist to complete the motion. Rolls right with max/total assist of two and drawsheet to complete motion. Trials/Comments1: Use of cee for w/c to/from mat. not safe to attempt transfer board this date due to pt balance, pushing with sitting. Wheelchair Analysis: Pt in tilt in space w/c. Use of left half lap tray for UE support. Obtained gel pad to also assist for left UE positioning. Placed on vector vicair air cushion for pressure relief- pt stated felt better. Was on lower cell roho but did not appear to support pt/hold air adequately. Therapeutic Activities and Neuromuscular Re-education: Pt up in chair upon arrival. Pt with frequent push with right UE into left lean. Educated on positioned to facilitate midline, control push. Brought to therapy gym: use of cee for w/c to sit at edge of mat. Max assist of one and mod of another for obtaining midline, control push left. Left UE supported onpillows. Lateral right lean to control push then max to return back to midline. At times mod for very brief static sitting then max due to push left/posterior. Min/mod for upright head positioning, cues for upright head posture and scanning left. Holds upright grossly 10-15seconds then requires redirection to bring back up. Repeated lateral leans and central positioning, grossly 10 min sitting. Positioned supine on wedge with assist of two for trunk/LE support. Max to roll left. Once in sidelying, reported decreased pain in this position. Held x5-7 minutes. Assist of two to return to sit at edge of mat. With rolling and sit to/from supine min report of dizziness but resolves with holding the position. Use of cee to return from mat to tilt in space w/c. Continued education for upright head positioning. Special Test and Outcome Measures: Agitated Behavior Scale ABS: 20 PT Treatment Outcomes:: Safety device reapplied and Patient tolerated session fair PT Summary:: Mr. Chaparro tolerated the session fair due to pain with all movement or position changes.Increased education regarding stroke symptoms, pain in left shoulder, positioning to assist with pain management. He responds well to verbal information but very distractible requiring constant redirection. He will continue to benefit from therapy to maximize functional gains, improve overall tolerance to movement. Also during session noted left eye with some drainage-- RN notified. PT Summary Plan of Care: Continue with current plan of care Pain Evaluation and Follow-up Response to Therapy Interventions: Decreased complaints of pain (11/03/22 1000) Pain Reassessment: 4 (when in left sidelying with pillow/wedge support.) (11/03/22 1000) Nursing notified of patient's pain assessment: Primary Nurse (11/03/22999) Therapy Minutes Individual Concurrent Co-Treat Individual (PT) Time In : 0900 Time Out: 1033 Total Time with Patient (Min): 93 min CHIBURIS, IRLANDA L., PT 11/03/2022 CHART CORRECTION: Type of Chart Edit: Addendum Reason for Correction: Additional information added (added info in summary section.) Name: Irlanda Sher, PT Date: 11/03/2022 Time: 15:59 CDT * Non-treatment Therapy Note - Mehdi Goldstein OT - 11/03/2022 8:01 AM CDT Prior to team conference, the Primary Therapist Ekaterina Forman, OT and I have communicated regarding current patient status, progress towards goals, and modifications to plan of care, as appropriate. MEHDI GOLDSTEIN OT * PT Weekly Progress Note - Irlanda Sher PT - 11/02/2022 5:11 PM CDT PT Weekly Progress Note Patient Name: Esperanza Chaparro Patient Birthdate: 1955 PT CURRENT FUNCTIONAL STATUS: PT Current Functional Status: PT Current Functional Status: BALANCE: sitting at edge of bed: total assist of two to transition tositting at EOB. Strong push left with initial sit. Max to maintain. Posture: rounded, cues for upright head position and maintains grossly 30 seconds. Left inattention noted. With cues attempts wt shift right to achieve midline but max to maintain. BED MOBILITY: Sit to/from supine with max/total assist of two for trunk and LE support. Pt with strong push left with initial sit Rolling with to left with use of rail and mod/max assist to complete movement. Painful left shoulder. Total assist to roll right for left side support and complete motion. TRANSFERS Sit to/from stand: not safe to attempt this date due to low level and hypotension this am Stand pivot with not safe to attempt this date due to safety. W/c to/from tilt in space w/c with use of cee, dependent assist. Car transfer not safe to attempt GAIT Unable to attempt stance this date due to level of assist required/safety, balance and hypotension. Unsafe to attempt ambulation 10, 50',150' Ambulates 10' on compliant surfaces: not safe to attempt Unsafe to retrieve object from floor STAIRS Ascends/descends curb: not safe to attempt Not safe to attempt 1, 4, 12 steps WHEELCHAIR MOBILITY: requires use of tilt in space w/c with left half lap tray for support. Total assist for any mobility in w/c. OUTCOME MEASURES: AGITATED BEHAVIOR SCALE 18 POSTURAL ASSESSMENT OF STROKE PROGRESS: Mr. Chaparro is tolerating therapy fair due to pain. He works to assist with movement but pain and left hemiparesis hinder. He will continue to benefit from intensive therapy to maximize functional gains. Factors in Goal Achievement: Facilitating Factors: None Barriers: Pain, Diminished endurance, Balance deficits, Motor control deficits and Strength limitations Date Last Assessed: 11/02/2022 CARE Score Mg: 6: Independent. [place] provides no assistance with tasks. A device may or may not have been used. 5: Set-up or clean-up assistance. Walnut sets up or cleans up, but does not assist with tasks. Walnut may have assisted prior to or following the activity. 4: Supervision or touching assistance. Walnut provides verbal cues or touching/steadying or contactguard assistance. Assistance may be provided throughout the activity or intermittently. 3: Partial/moderate assistance. Walnut does less than half the effort. Walnut lifts, holds, or supports trunk or limbs, but provides less than half the effort. 2: Substantial/maximal assistance. Walnut does more than half the effort. Walnut lifts or holds trunk or limbs, and provides more than half the effort. 1: Dependent. [place] does all of the effort, or the assistance of two or more helpers is required for the patient to complete the activity. -: Inconsistent or incomplete documentation Activity not attempted values: 7: Patient refused 9: Not applicable - Not attempted and the patient did not perform this activity prior to the current illness, exacerbation, or injury. 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: Goal Status on Admission Current Status Car Transfer - CARE Score: 88 (10/29/22 4217 : Irlanda Sher PT) Car Transfer - CARE Score: 88(11/02/221722) Walk 10 Feet LTG: Dependent (pt will ambulate 10ft with hemiaide and mod/max of two) Walk 10 Feet -CARE Score: 88 (10/29/221746 : Irlanda Sher PT) Walk 10 Feet - CARE Score: 88 (11/02/221722) Walk 50 Feet with Two Turns - CARE Score: 88 (10/29/221746 : Irlanda Sher PT) Walk 50 Feet with Two Turns - CARE Score: 88 (11/02/221722) Walk 150 Feet - CARE Score: 88 (10/29/221746 : Irlanda Sher PT) Walk 150 Feet - CARE Score: 88 (11/02/221722) Walking 10 Feet on Uneven Surfaces - CARE Score: 88 (10/29/221746 : Irlanda Sher PT) [id number] Feet on Uneven Surfaces - CARE Score: 88 (11/02/221722) 1 Step (Curb) - CARE Score: 88 (10/29/221746 : Irlanda Sher PT) 1 Step (Curb) - CARE Score: 88 (11/02/221722) 4 Steps - CARE Score: 88 (10/29/221746 : Irlanda Sher PT) 4 Steps - CARE Score: 88 () 12 Steps - CARE Score: 88 (10/29/221746 : Irlanda Sher PT) 12 Steps - CARE Score: 88 (11/02/221722) Picking Up Object - CARE Score: 88 (10/29/221746 : Irlanda Sher PT) Picking Up Object - CAREScore: 88 (11/02/221722) Wheel 50 Feet with Two Turns LTG: Partial/moderate assistance (pt propel w/c 60ft with right UE/LE and mod assist for guidance.) Wheel 50 Feet with Two Turns - CARE Score: 88 (10/29/221746 : Irlanda Sher PT) Wheel 50 Feet with Two Turns - CARE Score: 1 (11/02/221722) Wheel 150 Feet - CARE Score: 88 (10/29/221746 : Irlanda Sher, PT) Wheel 150 Feet - CARE Score: 1 (11/02/221722) Additional Goals & Status: N/A PT Other Residential Goals Flowsheet Row Most Recent Value Other PT Residential Goals Other Goals - Residential Offset Lithographic 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 1, Offset Lithographic 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 2, Residential 3, Offset Lithographic 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 4 Filed on: 10/29/20221748 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 Lithographic 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 Goal 1 w/c to/from level surface with transfer board and mod assist Filed on: 10/29/20221748 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 Lithographic 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 Goal 1 Status Established Filed on: 10/29/20221748 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 Lithographic 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 Goal 2 sit to stand to hemiaide and mod assist of two Filed on: 10/29/20221748 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 Lithographic 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 Goal 2 Status Established Filed on: 10/29/20221748 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 Lithographic 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 Goal 3 tolerate upright position in regular w/c vs tilt in space w/c when out of bed Filed on: 10/29/20221748 Other Residential Goal 3 Status Established Filed on: 10/29/20221748 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 Lithographic 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 Goal 4 sit to/from supine with mod assist. Filed on: 10/29/20221748 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 Lithographic 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 Goal 4 Status Established Filed on: 10/29/20221748 PT Short Term Goal 1: Details: Sit to/from supine with max assist Expected Achievement Date: 11/09/2022 Goal Status: Not Achieved PT Short Term Goal 2: Details: W/c to/from level surface with use of transfer board and max assist Expected Achievement Date: 11/09/2022 Status: Not Achieved PT Short Term Goal 3: Details: Sit to cable tv installer parallel bars with max assist. Expected Achievement Date: 11/09/2022 Status: Not Achieved PT Short Term Goal 4: Details: Pt ambulate 5ft in parallel bars with mod/max assist of two. Expected Achievement Date: 11/09/2022 Goal Status: Not Achieved Duration Expiration Date: 11/18/2022 IRLANDA SHER, PT 11/02/2022 * OT Weekly Progress Note - Ekaterina Forman, OT - 11/02/2022 3:50 PM CDT Occupational Therapy Weekly Progress Note Patient Name: Esperanza Chaparro Patient Birthdate: 1955 OT Current Functional Status: Mr. Chaparro's current status is as follows: EATING: with supervision using right UE to feed self, increased time to complete ORAL HYGIENE: with supervision using right UE and cues for sequencing, increased time to complete TOILETING: with dependent assistance for all aspects of toileting SHOWER/BATHING: with dependence at bed level, he is able to wash face however, with cues for thoroughness, requires assist of 2 for washing/drying LB. UPPER BODY DRESSING: with dependent assistance for all aspects of UB dressing, Mr. Chaparro exhibited moderate assistance 1 time with donning gown on 10/31/22. However, on 11/02/22, Mr. Chaparro was dependent with donning/doffing hospital gown. He required maximal assistance with sitting balance. LOWER BODY DRESSING: with dependent assistance for all aspects of LB dressing FOOTWEAR: with dependent assistance for all aspects of footwear. ROLL LEFT/RIGHT: with dependence, requires assistance of 2 for rolling to right and moderate assistance to roll left SIT TO LYING: with dependent assistance LYING TO SITTING: with dependent assistance SIT TO STAND: with dependent assistance, assistance of 2 BED TO CHAIR TRANSFER: with depenent assistance, uses cee lift in hosptial room TOILET TRANSFER: not performed due to safety concerns. Mr. Chaparro presents with flaccid left UE with increased complaints of pain with movement and increased edema noted throughout left UE. Mr. Chaparro perseverates on pain, especially on buttocks and frequently requests to be repositioned, however, once repositioned, Mr. Chaparro will push himself back towards left side and complain of continued pain. Difficulty with redirection. Decreased insight and safety as well as problem solving and memory. Mr. Chaparro requires maximal assistance of another for sitting balance in w/c. Limitations to discharge include decrease selfcare, transfers, balance, endurance, safety/cognition, left UE function and Mr. Chaparro would benefit from continued OT services to work on max imizing functional independence. Facilitating Factors in Goal Achievement: Support of family or caregiver Barriers to Goal Achievement: Pain, ROM limitations, Strength limitations, Balance deficits, Motor control deficits, Impaired skin integrity, Tone deficits, Diminished endurance, Decreased patient understanding, Cognitive deficits, Decreased safety awareness and Behavioral issues Date Last Assessed: 11/02/2022 Patient needs assistance with the following activities: Activities of daily living, Going out in the community, Memory, Vision, Use of bathroom equipment, Use of patient wine pasteurizer, Positioning, Rolling,Head control, Sitting balance and Reaching Will patient require a prosthetic or orthotic device upon discharge: No CARE Score Mg: 6: Independent. [place] provides no assistance with tasks. A device may or may not have been used. 5: Set-up or clean-up assistance. Walnut sets up or cleans up, but does not assist with tasks. Walnut may have assisted prior to or following the activity. 4: Supervision or touching assistance. Walnut provides verbal cues or touching/steadying or contactguard assistance. Assistance may be provided throughout the activity or intermittently. 3: Partial/moderate assistance. Walnut does less than half the effort. Walnut lifts, holds, or supports trunk or limbs, but provides less than half the effort. 2: Substantial/maximal assistance. Walnut does more than half the effort. Walnut lifts or holds trunk or limbs, and provides more than half the effort. 1: Dependent. [place] does all of the effort, or the assistance of two or more helpers is required for the patient to complete the activity. -: Inconsistent or incomplete documentation Activity not attempted values: 7: Patient refused 9: Not applicable - Not attempted and the patient did not perform this activity prior to the current illness, exacerbation, or injury. 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: Goal Status on Admission Current Status Eating - CARE Score: 4 (10/29/22 1021 : Luke Robertson OT) Eating - CARE Score: 4 (11/02/22 1551) Oral Hygiene - CARE Score: 3 (10/29/22 1021 : Luke Robertson, OT) Oral Hygiene - CARE Score: 4 (11/02/22 1551) Toileting Hygiene LTG: Partial/moderate assistance Toileting Hygiene - CARE Score: 1 (10/29/22 1021: Luke Robertson OT) Toileting Hygiene - CARE Score: 1 (11/02/22 1551) Shower/Bathe Self LTG: Partial/moderate assistance Shower/Bathe Self - CARE Score: 1 (10/29/22 1021: Luke Robertson OT) Shower/Bathe Self - CARE Score: 1 (11/02/22 1551) Upper Body Dressing LTG: Partial/moderate assistance Upper Body Dressing - CARE Score: 1 (10/29/22 1021 : Luke Robertson OT) Upper Body Dressing - CARE Score: 1 (11/02/22 155) Lower Body Dressing LTG: Partial/moderate assistance Lower Body Dressing - CARE Score: 1 (10/29/22 1021 : Luke Robertson OT) Lower Body Dressing - CARE Score: 1 (11/02/22 155) Putting On/Taking Off Footwear LTG: Partial/moderate assistance Putting On/Taking Off Footwear - CARE Score: 1 (10/29/22 1021 : Luke Robertson OT) Putting On/Taking Off Footwear - CARE Score: 1 (11/02/22 155) Roll Left and Right - CARE Score: 1 (10/29/22 1021 : Luke Robertson OT) Roll Left and Right - CARE Score: 1 (11/02/22 155) Sit to Lying - CARE Score: 1 (10/29/22 1021 : Luke Robertson OT) Sit to Lying - CARE Score: 1 (11/02/22 155) Lying to Sitting on Side of Bed - CARE Score: 1 (10/29/22 1021 : Luke Robertson OT) Lying toSitting on Side of Bed - CARE Score: 1 (11/02/22 155) Sit to Stand - CARE Score: 88 (10/29/22 1021 : Luke Robertson OT) Sit to Stand - CARE Score:1 (11/02/22 155) Chair/Zfh-av-Lobam Transfer LTG: Partial/moderate assistance Chair/Agu-ue-Wwtqo Transfer - CARE Score: 88 (10/29/22 1021 : Luke Robertson OT) Chair/Wsj-ye-Ogsut Transfer - CARE Score: 1 (11/02/22 1551) Toilet Transfer LTG: Partial/moderate assistance Toilet Transfer - CARE Score: 88 (10/29/22 1021 : Luke Robertson OT) Toilet Transfer - CARE Score: 88 (11/02/22 1551) Additional Goals & Status: N/A OT Short Term Goal 1: Focus: Toileting Hygiene Level of Assistance to Meet Short Term Goal: Physical assistance 50%-74% Expected Achievement Date: 11/09/2022 Goal Status: Not Achieved OT Short Term Goal 2: Focus: Shower/Bathe Level of Assistance to Meet Short Term Goal: Physical assistance 50%-74% Expected Achievement Date: 11/09/2022 Goal Status: Not Achieved OT Short Term Goal 3: Focus: Upper Body Dressing Level of Assistance to Meet Short Term Goal: Physical assistance 50%-74% Expected Achievement Date: 11/09/2022 Goal Status: Not Achieved OT Short Term Goal 4: Focus: Lower Body Dressing Level of Assistance to Meet Short Term Goal: Physical assistance 50%-74% Expected Achievement Date: 11/09/2022 Goal Status: Not Achieved OT Short Term Goal 5: Focus: Toilet Transfer Level of Assistance to Meet Short Term Goal: Physical assistance 50%-74% Expected Achievement Date: 11/09/2022 Goal Status: Not Achieved Duration Expiration Date: 11/26/2022 EKATERINA FORMAN OT 11/02/2022 * OIL GAS AND PIPE TESTER Weekly Progress Note - [facility] - 11/02/2022 3:01 PM CDT Speech Language Pathologist Weekly Progress Note Patient Name: Esperanza Chaparro Patient Birthdate: 1955 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 Chaparro is a 67 year old male referred to speech therapy for evaluation and treatment following recent hospitalization with a diagnosis of CVA. Patient presented to the hospital initially on 10/12/22 due to a peritonsillar abscess, reporting dysphagia symptoms with liquids and solids. While there, he developed left sided weakness with confirmation of CVA. He was living with his sister prior to admission and was independent with ADLs and IADLs and driving. 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 Initial assessment revealed the following functional status: SWALLOWING: Current diet: SOFT & BITE SIZED with THIN LIQUIDS (IDDSI 6/0) Oral phase- Mild spillage and pocketing from the left side observed with regular solid (crow cracker); mild spillage of thin liquid from the left side. Pharyngeal phase- No clinical signs of aspiration observed with regular solid (crow cracker); immediate cough noted with drinks of thin liquid from large bore straw; improvement noted when drinkingliquid from cup edge. MASA score of 170 indicates mild dysphagia with no aspiration risk. COMMUNICATION: COMPREHENSION- SUPERVISION. Patient is able to comprehend information regarding basic needs over 90% of the time. Increased difficulty noted with comprehension of complex or abstract information. Yes/No Questions: Basic 100%; Complex 100%. Following Commands: Simple- 2/2 ; Complex- 2/2 Identification of pictures/objects: 4/4 Comprehension of conversation: WNL for basic information. Reading comprehension: Impaired due to left inattention/neglect. EXPRESSION- SUPERVISION. Patient is able to express information regarding basic needs over 90% of the time. Increased difficulty noted with comprehension of complex or abstract information. Patient presents with mild dysarthria but mostly intelligible speech. Automatic Speech: WNL Repetition: WNL Naming: Confrontational- WNL Speech Intelligibility: Mostly intelligible; mildly reduced articulatory contacts. Writing: Not assessed COGNITION: PROBLEM-SOLVING- MODERATE ASSISTANCE. Patient is able to solve routine problems 50-74% of the time. Attention: Reduced secondary to fatigue and discomfort. Verbal Problem-Solving: Patient was able to provide logical and complete responses for basic and multi-factor problem-solving situations. Thought Organization: Divergent Naming- Patient was able to name 6 fruits in one minute period (normal is approximately 15); Convergent naming- 3/3 correct. Safety Awareness: Patient was able to verbalize use of 911, use of call light, and fall risk. Sequencing: Not assessed Math Reasoning: Not assessed MEMORY: MODERATE ASSISTANCE. Patient is able to recognize and remember people, routines, and requests 50-74% of the time. Orientation: Oriented to person, temporal information with exception of the day of the week; not oriented to place (said [facility]). Delayed Recall: Able to recall 0/3 unrelated words following a 5 minute delay; 2/3 with cues. Paragraph Retention: Patient was able to recall 6/20 details from a paragraph presented verbally; answered open-ended questions regarding the paragraph with 3/6 correct. SOCIAL INTERACTION: MINIMAL ASSISTANCE. Patient presented with fatigue and discomfort during the evaluation. He required frequent encouragement to continue with assessment. PROGRESS 11/02/22: Evaluation was completed on 10/29/22. All goals remain appropriate to continue at this time due to limited number of sessions thus far. Patient is distracted by pain and discomfort when up in wheelchair during therapy sessions. He requires frequent encouragement for task persistence. Patient requires assistance with tray set-up and at least some degree of supervision/assistance with feeding due to left visual impairment and left side weakness. RECOMMENDATION: Mr. Chaparro has good potential for improvement in rehab and will benefit from speech therapy services 45-90 minutes daily, 5 days per week in individual or group sessions as appropriate.Plan of care to include patient and family education; use of compensatory strategies; interventionsfor improved strength and movement of left facial musculature; interventions for improved swallowing function to manage least restrictive solid and liquid consistencies; and cognitive retraining for functional reasoning and memory skills to increase safety and independence at discharge. The Patient: [ ]is able to state 2 risk factors without VCs prior to discharge [ ]requires cues to recall 2 stroke risk factors [ X] Is unable to state stroke risk factors due to communication or cognitive deficits Facilitating Factors in Goal Achievement: Patient compliance Barriers to Goal Achievement: Pain, Other (comment) and Communication deficits (cognition) Date Last Assessed: 11/02/2022 Offset Lithographic 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 Goals: Goal Status on Evaluation Current Progress Towards Goal Level of Assistance to Meet Problem Solving: Min assist (10-24%) Problem Solving Details: Improve functional problem-solving skills to minimal assistance to solve routine problems at least 75% of the time. Problem Solving Expected Achievement Date: 11/25/22 Moderate assistance Continue to address Level of Assistance to Meet Memory: Min assist (10-24%) Memory Details: Improve functional memory skills to minimal assistance to recognize and remember people, routines, and requests at least 75% of the time. Memory Expected Achievement Date: 11/25/22 Moderate assistance Continue to address Swallowing Details: Safely manage regular texture solids and thin liquids with no clinical signs ofdysphagia. Swallowing Expected Achievement Date: 11/25/22 Soft & Bite Sized with thin liquids Continue to address Additional Goal Status: N/A OIL GAS AND PIPE TESTER Short Term Goals: Problem Solving: Details: Complete functional problem-solving/reasoning tasks with 70% accuracy. Expected Achievement Date: 11/09/2022 Goal Status: Not Achieved Memory: Details: Complete short term memory tasks with 70% accuracy. Expected Achievement Date: 11/09/2022 Goal Status: Not Achieved Additional Cognition: Details: Participate in further assessment of cognitive skills using a standardized measure. Expected Achievement Date: 11/09/2022 Goal Status: Not Achieved Swallowing: Details: Safely manage current diet and thin liquids using compensatory strategies with no clinicalsigns of dysphagia. Expected Achievement Date: 11/09/2022 Goal Status: Partially Achieved Other STG 1: Focus: Swallowing Details: Participate in NMES (PENS) to stimulate left facial musculature. Expected Achievement Date: 11/09/2022 Goal Status: Not Achieved Other STG 2: Focus: Additional Cognition Level of Assistance to Meet Other STG 2: Independent Details: Recall 2 factors for stroke prevention independently. Expected Achievement Date: 11/09/2022 Goal Status: Not Achieved Other STG 3: Focus: Additional Cognition Level of Assistance to Meet Other STG 3: Min assist (10-24%) Details: Complete tasks to target left attention with minimal assistance. Expected Achievement Date: 11/09/2022 Goal Status: Partially Achieved Duration Expiration Date: 12/26/[address] 11/02/2022 * Plan of Care - Keya Goodrich RN - 11/02/2022 1:17 PM CDT Problem: Infection Goal: Absence of infection and prevention of transmission during hospitalization Outcome: Progressing Flowsheets (Taken 11/02/2022 1317) Absence of infection and prevention of transmission during hospitalization: Assess and monitor for signs and symptoms of infection and vital signs Monitor lab/diagnostic results Administer medications as ordered Problem: Knowledge Deficit Goal: Patient and/or family demonstrate readiness to learn Outcome: Progressing Goal: Patient and/or family verbalizes understanding of education, and/or performs desired skill Outcome: Progressing Problem: Discharge Planning Goal: Discharge to home or other facility with appropriate resources Outcome: Progressing Goal: client services assistant will develop a plan to decrease their burden and enhance comfort in role Outcome: Progressing Problem: Delirium Goal: Prevent and Manage Delirium Outcome: Progressing Problem: Fall Safety: [place] Precautions Goal: Free from fall injury Outcome: Progressing Problem: Fall Huddle Goal: Free from Fall Injury Outcome: Progressing Problem: Fall Prevention: Fatigue Bundle Goal: Patient will be free from Fall Injury Outcome: Progressing Problem: Fall Safety: [place] Precautions Goal: Free from fall injury Outcome: Progressing Problem: Fall Huddle Goal: Free from Fall Injury Outcome: Progressing Problem: Pain Goal: Patient's Pain/Discomfort is Manageable Outcome: Progressing Problem: Knowledge Deficit Goal: Patient/family/caregiver demonstrates understanding of disease process, treatment plan, medications, and discharge instructions Outcome: Progressing Problem: Potential for Compromised Skin Integrity Goal: Skin integrity is maintained or improved Outcome: Progressing Goal: Nutritional status is improving Outcome: Progressing Problem: Urinary Incontinence Goal: Perineal skin integrity is maintained or improved Outcome: Progressing Problem: Bowel Incontinence Goal: Perineal Skin Integrity is Maintained or Improved Outcome: Progressing Problem: Fall Prevention: Neglect/Hemiparesis Bundle Goal: Patient will be free from Fall Injury Outcome: Progressing * OIL GAS AND PIPE TESTER Treatment Note - [facility] - 11/02/2022 11:20 AM CDT Speech Language Pathologist Treatment Patient Name: Esperanza Chaparro Patient Birthdate: 1955 Patient Subjective Report - I can't stand this. I have to get back in bed. Pain Assessment Pain Context: Therapy Assessment Prior to Treatment (11/02/22 1120) Pain Assessment: NRS 0-10 (11/02/22 1120) Pain Score: 10 (11/02/22 1120) Pain Severity - NRS (Calculated): Severe (11/02/22 1120) Pain Type: Acute pain (11/02/22 1120) Pain Location: Buttocks (11/02/22 1120) Pain Descriptors: Sore, Aching (11/02/22 1120) Pain Onset: Ongoing (11/02/22 1120) Pain Frequency: Constant/continuous (11/02/221119) Aggravating Factors: Positioning (11/02/22 112) Pre-therapy pain intervention required: Other (Comment) (OIL GAS AND PIPE TESTER encouraged patient to continue.) (11/02/22 112) Pain Interventions Education Provided: Patient (11/02/22 120) Non-Pharmacologic Pain Interventions: Distractions, Position/Reposition, Heat Applied (11/02/22 1205) Emotional/Spiritual Pain Interventions: Emotional Support (11/02/22 120) Cognitive Communication: Immediate memory, Short-term memory, Insight, Processing information of increased length or complexity, Semi-complex to complex attention and Task persistence Dysphagia Treatment: Swallow strategy training Recommended diet: IDDSI 6 - Soft & Bite-Sized / NDD3, Pills Whole in IDDSI 4 (Pureed / Extremely Thick) and IDDSI 0 - Thin Liquids / All Liquids Compensatory swallowing techniques: Small bites, Small sips, Eat slowly-control rate, Seated upright with all PO intake, Monitor oral spillage, Oral care post PO intake and Other (comment) (Avoid large bore straw) Level of supervision at meals recommended: 1 to 1 assistance due to cognitive or motor deficits Patient/Caregiver Training: Completed with patient, Therapy goals and treatment plan, Oral hygiene and Cognitive strategies ST Narrative:: 1. Patient was seen for therapy in his room, seated upright in Tilt in Space wheelchair; alert but complained of severe pain/discomfort in his buttocks which impacted his participationin therapy tasks. 2. Patient participated in a complex topic of discussion regarding stroke prevention. Lifestyle change recommendations and management were discussed with patient to promote a healthier lifestyle. Patient presented with significant difficulty attending to the information provided due to level of discomfort sitting in his wheelchair. Patient continuously expressed that he was in pain and wanted to get in bed. OIL GAS AND PIPE TESTER informed him that he needed to stay up until after lunch. OIL GAS AND PIPE TESTER repositioned the chairseveral times to provide pressure relief; however, patient continued to report severe discomfort. OIL GAS AND PIPE TESTER provided encouragement and support. Discussion regarding stroke risk and prevention was not completed due to patient distractibility; to be completed during next session. 3. Patient remained in his room with call light and phone left within reach. Chair alarm activated.senior technical recruiter delivering lunch tray upon OIL GAS AND PIPE TESTER exit. ST Session Outcomes: Patient/family education progressing, Progressing toward STGs and Tolerated treatment well ST Summary Plan of Care: Continue with current plan of care Pain Evaluation and Follow-up Response to Therapy Interventions: Other (comment) (Continued to report pain in buttocks) () Pain Reassessment: 10 (11/02/22 120) Nursing notified of patient's pain assessment: Other (comment) (Staff aware) (11/02/22 1205) Therapy Minutes Individual Concurrent Co-Treat Time In : 1120 Time Out: 1206 Breaks/Pauses (Min): 0 mins Total Time with Patient (Min): 46 min Missed Minutes : [address] 11/02/2022 * OT Treatment Note - Ekaterina Forman OT - 11/02/2022 9:48 AM CDT Occupational Therapy Treatment Patient Name: Esperanza Chaparro Patient Birthdate: 1955 Patient Subjective Report - I need to get off this cushion, put a pillow there instead. Pain Assessment Pain Context: Therapy Assessment During Treatment (11/02/22949) Pain Assessment: NRS 0-10 (11/02/22949) Pain Score: 10 (11/02/22949) Pain Severity - NRS (Calculated): Severe (11/02/22949) Pain Type: Acute pain, Chronic pain, Other (Comment) (gout in right great toe, history of gout in right great toe) (11/02/22949) Pain Location: Arm, Buttocks, Toe (Comment which one) (11/02/22949) Pain Orientation: Left, Posterior, Other (Comment), Right (buttocks especially middle, left UE, right great toe) (11/02/22949) Pain Descriptors: Aching, Sore, Tender (11/02/22949) Pain Onset: Progressive (11/02/22949) Pain Frequency: Constant/continuous (11/02/22949) Aggravating Factors: Activity Duration, Positioning (11/02/22949) Pre-therapy pain intervention required: Patient expressed pain is tolerable/able to proceed, Nurse notified (11/02/22949) Pain Interventions Education Provided: Patient (11/02/22949) Non-Pharmacologic Pain Interventions: Distractions, Exercise/Activity, Position/Reposition, Rest (11/02/22949) Emotional/Spiritual Pain Interventions: Emotional Support (11/02/22949) ADL Training: ADL Training Narrative: EATING: with minimal assistance to hold cup and straw steady for Mr. Chaparro to drink GROOMING: with dependence for shaving, Mr. Chaparro did not attempt to participate with task. He was perseverating on pain during session TOILETING: with SHOWER/BATHING: with UPPER BODY DRESSING: with dependence with hospital gown. Mr. Chaparro has IV in right UE. Maximal assistance with sitting balance in w/c. LOWER BODY DRESSING: with dependence with all aspects of LB dressing FOOTWEAR: with dependence with all aspects of footwear. OT Therapeutic Activity: Therapeutic Exercise: Mr. Chaparro participated with left UE neuromuscular exercises with encouragementto promote ROM/strength for left UE function for ADL's and transfers. Therapist performed PROM and gentle stretch to Mr. Chaparro's left UE. Decreased attention to task due to Mr. Chaparro perseverating on buttock pain and occasional left UE pain. When Mr. Chaparro c/o left UE pain, therapist readjusted positioning of left UE. However, Mr. Chaparro appeared sensitive to touch and minimal movement due to c/o painwhen therapist would slightly adjust UE on w/c lap tray. Mr. Chaparro tends to lean towards left side an onto w/c handle with left shoulder. Therapist attempted to reposition Mr. Chaparro frequently and provided verbal and tactile cues to shift wt towards right, however, Mr. Chaparro would continued to push self towards left. Mr. Chaparro frequent c/o and perseverated on buttock pain even after being adjusted inw/c, w/c being adjusted, and w/c cushion being adjusted. He would would push self back into initialposition and request to be moved again. Retrograde massage performed to Mr. Chaparro's left UE this date. Left UE positioned onto lap tray with pillow to elevate left UE. Endurance: Poor endurance and pain tolerance. Difficulty redirecting this date. Cognition: Mr. Chaparro presents with impaired reasoning skills and insight. He perseverated on pain and discomfort even after therapy attempted to reposition with Mr. Chaparro pushing self back into original position each time. Difficulty redirecting Mr. Chaparro to different task. Impaired memory and problemsolving. Treatment, Outcomes and Plan: OT Narrative:: Mr. Chaparro tolerated tx poorly this date due to perseverating on pain issue. He would benefit from continued OT services to work on maximizing functional independence. OT Treatment Outcomes:: Safety device reapplied, Patient tolerated treatment poorly, Goals met for this session and Cues needed for safety OT Summary Plan of Care: Continue with current plan of care Pain Evaluation and Follow-up Response to Therapy Interventions: Other (comment) (no significant change noted) (11/02/22 1118) Pain Reassessment: 10 (11/02/22 111) Therapy Minutes Individual Concurrent Co-Treat Individual (OT) Time In : 947 Time Out: 1118 Total Time with Patient (Min): 90 min EKATERINA FORMAN, OT 11/02/2022 CHART CORRECTION: Type of Chart Edit: Addendum Reason for Correction: Additional information added (added information in UB dressing) Name: Ekaterina Forman, JEZR/L Date: 11/02/2022 Time: 15:50 CDT * PT Treatment Note - Irlanda Sher, PT - 11/02/2022 9:00 AM CDT PT Treatment Patient Name: Esperanza Chaparro Patient Birthdate: 1955 Patient Subjective Report - Pt reports left shoulder pain. Reports pain in left groin with movement. Also reports pain in right great toe/MTP joint- MD and RN notified. Pt just received pain meds andstated ok for therapy. Pain Assessment Pain Context: Therapy Assessment Prior to Treatment (11/02/22899) Pain Assessment: NRS 0-10 (11/02/22 09) Pain Score: 8 (11/02/22899) Pain Severity - NRS (Calculated): Severe (11/02/22899) Pain Location: Back, Shoulder, Toe (Comment which one) (right great toe, MTP joint) (11/02/22899) Pain Descriptors: Aching, Sore (11/02/22899) Pain Onset: Ongoing (11/02/22899) Pain Frequency: Constant/continuous (11/02/22899) Pre-therapy pain intervention required: Patient expressed pain is tolerable/able to proceed, Nurse notified, Nursing medicated patient - see MAR (11/02/22899) Pain Interventions Non-Pharmacologic Pain Interventions: Exercise/Activity, Position/Reposition (11/02/22945) Therapeutic Activities and Neuromuscular Re-education: Pt supine in bed upon arrival, HOB elevated POSTURE: pt with right lateral head lean, decreased ability to maintain neutral positioning with out significant external support. Pt positioned into full supine. PROM to left leg, min decrease range at hip to maintain painfree range. Reports increased groin pain with increased left hip flexion. Gentle ab/adcution. Positioned into hooklying for assisted hip internal/external rotation. Trace movement noted at times. Right leg supported to assist active movement: heel slides, hip ab/adduction- 10 reps with mod support and mod/max verbal cues to stay on task. Repeated rolling: to left with cues and use of bedrail: mod assist to complete the motion. To right: total assist and use of drawsheet to complete motion. Pt will scan right and attempt to assist butunable to complete without total assist Bed to chair with use of cee- dependent assist. Up to tilt in space w/c. Use of half lap tray on left for UE support. Head rest adjusted to facilitate upright and centered head positioning. Special Test and Outcome Measures: Postural Assessment of Stroke Patients (PASS) and Agitated Behavior Scale ABS: 18 PASS: 3 PT Treatment Outcomes:: Patient tolerated session fair and Safety device reapplied PT Summary:: Mr. Chaparro tolerated the session. Right great toe presents painful to touch or movement and errythema noted over MTP joint. MD and RN notified and will assess for gout. Pt reported he had gout in the past in that area. Pt also had requested pain patch being removed from right toe/forefoot area- RN verified ok and pain patch removed from foot. He works to assist with movement but pain and left hemiparesis hinder. He will continue to benefit from intensive therapy to maximize functional gains. PT Summary Plan of Care: Continue with current plan of care Pain Evaluation and Follow-up Response to Therapy Interventions: Decreased complaints of pain, Improved positioning (11/02/22945) Pain Reassessment: 6 (11/02/22945) Nursing notified of patient's pain assessment: Primary Nurse (11/02/22945) Therapy Minutes Individual Concurrent Co-Treat Individual (PT) Time In : 0900 Time Out: 946 Total Time with Patient (Min): 47 min IRLANDA SHER, PT 11/02/2022 * Plan of Care - Brielle Becker RN - 11/01/2022 10:25 PM CDT Problem: Infection Goal: Absence of infection and prevention of transmission during hospitalization Outcome: Progressing Flowsheets (Taken 11/01/2022 0500 by Juan C Sahu RN) Absence of infection and prevention of transmission during hospitalization: Assess and monitor for signs and symptoms of infection and vital signs Monitor lab/diagnostic results Monitor all insertion sites i.e., indwelling lines, tubes and drains, obtain order to remove devicewhen no longer clinically necessary Administer medications as ordered Educate patient/family regarding signs and symptoms of infection Educate patient/family on proper hand washing and infection prevention techniques * Plan of Care - Marciano Gottlieb RN - 11/01/2022 11:34 AM CDT Problem: Infection Goal: Absence of infection and prevention of transmission during hospitalization Outcome: Progressing Problem: Knowledge Deficit Goal: Patient and/or family demonstrate readiness to learn Outcome: Progressing Goal: Patient and/or family verbalizes understanding of education, and/or performs desired skill Outcome: Progressing Problem: Discharge Planning Goal: Discharge to home or other facility with appropriate resources Outcome: Progressing Goal: client services assistant will develop a plan to decrease their burden and enhance comfort in role Outcome: Progressing Problem: Delirium Goal: Prevent and Manage Delirium Outcome: Progressing Problem: Fall Safety: [place] Precautions Goal: Free from fall injury Outcome: Progressing Problem: Fall Huddle Goal: Free from Fall Injury Outcome: Progressing Problem: Fall Prevention: Fatigue Bundle Goal: Patient will be free from Fall Injury Outcome: Progressing Problem: Fall Safety: [place] Precautions Goal: Free from fall injury Outcome: Progressing Problem: Fall Huddle Goal: Free from Fall Injury Outcome: Progressing Problem: Pain Goal: Patient's Pain/Discomfort is Manageable Outcome: Progressing Problem: Knowledge Deficit Goal: Patient/family/caregiver demonstrates understanding of disease process, treatment plan, medications, and discharge instructions Outcome: Progressing Problem: Potential for Compromised Skin Integrity Goal: Skin integrity is maintained or improved Outcome: Progressing Goal: Nutritional status is improving Outcome: Progressing Problem: Urinary Incontinence Goal: Perineal skin integrity is maintained or improved Outcome: Progressing Problem: Bowel Incontinence Goal: Perineal Skin Integrity is Maintained or Improved Outcome: Progressing Problem: Fall Prevention: Neglect/Hemiparesis Bundle Goal: Patient will be free from Fall Injury Outcome: Progressing * Plan of Care - Juan C Sahu RN - 11/01/2022 5:00 AM CDT Problem: Infection Goal: Absence of infection and prevention of transmission during hospitalization Outcome: Progressing Flowsheets (Taken 11/01/2022 0500) Absence of infection and prevention of transmission during hospitalization: Assess and monitor for signs and symptoms of infection and vital signs Monitor lab/diagnostic results Monitor all insertion sites i.e., indwelling lines, tubes and drains, obtain order to remove devicewhen no longer clinically necessary Administer medications as ordered Educate patient/family regarding signs and symptoms of infection Educate patient/family on proper hand washing and infection prevention techniques Problem: Fall Safety: [place] Precautions Goal: Free from fall injury Outcome: Progressing Flowsheets (Taken 11/01/2022 0500) Free from fall injury: Perform fall risk assessment and identifiers in place (as applicable) Frequent rounding/monitoring Lighting appropriate Bed low, locked 2 side rails Use of bed/chair alarm Put call light within reach and teach how to call for assistance, respond to call light immediately Toilet magnet in place (IR Only) Offer frequent toileting Assess for environmental or other risks Fall/safety education for patient/family/SO Problem: Fall Safety: [place] Precautions Goal: Free from fall injury Outcome: Progressing Flowsheets (Taken 11/01/2022 0500) Free from fall injury: Perform fall risk assessment and identifiers in place (as applicable) Frequent rounding/monitoring Lighting appropriate Bed low, locked 2 side rails Use of bed/chair alarm Put call light within reach and teach how to call for assistance, respond to call light immediately Toilet magnet in place ([facility] Only) Offer frequent toileting Assess for environmental or other risks Fall/safety education for patient/family/SO * Plan of Care - Keya Goodrich RN - 10/31/2022 3:40 PM CDT Problem: Infection Goal: Absence of infection and prevention of transmission during hospitalization Outcome: Progressing Flowsheets (Taken 10/31/2022 1540) Absence of infection and prevention of transmission during hospitalization: Assess and monitor for signs and symptoms of infection and vital signs Monitor lab/diagnostic results Administer medications as ordered Problem: Knowledge Deficit Goal: Patient and/or family demonstrate readiness to learn Outcome: Progressing Goal: Patient and/or family verbalizes understanding of education, and/or performs desired skill Outcome: Progressing Problem: Discharge Planning Goal: Discharge to home or other facility with appropriate resources Outcome: Progressing Goal: client services assistant will develop a plan to decrease their burden and enhance comfort in role Outcome: Progressing Problem: Delirium Goal: Prevent and Manage Delirium Outcome: Progressing Problem: Fall Safety: [place] Precautions Goal: Free from fall injury Outcome: Progressing Problem: Fall Huddle Goal: Free from Fall Injury Outcome: Progressing Problem: Fall Prevention: Fatigue Bundle Goal: Patient will be free from Fall Injury Outcome: Progressing Problem: Fall Safety: [place] Precautions Goal: Free from fall injury Outcome: Progressing Problem: Fall Huddle Goal: Free from Fall Injury Outcome: Progressing Problem: Pain Goal: Patient's Pain/Discomfort is Manageable Outcome: Progressing Problem: Knowledge Deficit Goal: Patient/family/caregiver demonstrates understanding of disease process, treatment plan, medications, and discharge instructions Outcome: Progressing Problem: Potential for Compromised Skin Integrity Goal: Skin integrity is maintained or improved Outcome: Progressing Goal: Nutritional status is improving Outcome: Progressing Problem: Urinary Incontinence Goal: Perineal skin integrity is maintained or improved Outcome: Progressing Problem: Bowel Incontinence Goal: Perineal Skin Integrity is Maintained or Improved Outcome: Progressing Problem: Fall Prevention: Neglect/Hemiparesis Bundle Goal: Patient will be free from Fall Injury Outcome: Progressing * OT Treatment Note - Purvi Vinson, OT - 10/31/2022 12:56 PM CDT Occupational Therapy Treatment Patient Name: Esperanza Chaparro Patient Birthdate: 1955 Patient Subjective Report - I'm just really tired. Pain Assessment Pain Context: Therapy Assessment Prior to Treatment (10/31/221114) Pain Assessment: NRS 0-10 (10/31/221114) Pain Score: 6 (10/31/221114) Pain Severity - NRS (Calculated): Moderate (10/31/221114) Pain Location: Toe (Comment which one) (10/31/221114) Pain Orientation: Right (10/31/221114) Pain Descriptors: Burning, Aching, Throbbing (10/31/22 111) Pain Frequency: Constant/continuous (10/31/221114) Aggravating Factors: Positioning (10/31/221114) Pre-therapy pain intervention required: Nurse notified (10/31/221114) Pain Interventions Non-Pharmacologic Pain Interventions: Distractions, Position/Reposition (10/31/221114) Emotional/Spiritual Pain Interventions: Emotional Support, Empathetic Discussion (10/31/221114) Pain Site 2 Pain Assessment Site 2: NRS 0-10 (10/31/221114) Pain Score Site 2: 7 (10/31/221114) Pain Severity - NRS (Calculated): Severe (10/31/221114) Pain Location Site 2: Leg (10/31/221114) Pain Orientation Site 2: Left (10/31/221114) Pain Descriptors Site 2: Discomfort, Dull (10/31/221114) Pain Onset Site 2: On-going (10/31/221114) Pain Frequency Site 2: Constant/continuous (10/31/221114) ADL Status: Toileting: Total Assistance/Dependent Toileting Where Assessed: Bed level Toilet Comments: Patient soiled depends while in wheelchair. Transfered patient back to bed, assistto 2 to roll patient side to side in order to clean periarea, and don new depends Dressing Upper Body: Moderate Assistance Upper Body Dressing Where Assessed: Supine in bed Upper Body Dressing Comments: [place]/donning hospital gown. Patient able to assist with doffing/donning RUE but unable to assist with LUE due to weakness and L inattention. Bed, Chair, Wheelchair Transfer: Total Assistance/Dependent Bed/Chair Transfer to: Bed Bed/Chair Transfer from: Wheelchair Bed/Chair Transfer Technique: Mechanical lift (cee lift) Treatment, Outcomes and Plan: OT Narrative:: Patient asleep in wheelchair at start of session, but agreeable once awake. OT Treatment Outcomes:: Safety device reapplied and Patient tolerated treatment fairly OT Summary Plan of Care: Continue with current plan of care Pain Evaluation and Follow-up Response to Therapy Interventions: Improved activity tolerance, Improved social interactions (10/31/22 1115) Pain Reassessment: 7 (10/31/22 1200) Therapy Minutes Individual Concurrent Co-Treat Individual (OT) Time In : 1115 Time Out: 1200 Total Time with Patient (Min): 45 min PURVI VINSON OT 10/31/2022 * PT Treatment Note - Tania Peck, POULTRY PINNER - 10/31/2022 9:00 AM CDT PT Treatment Patient Name: Esperanza Chaparro Patient Birthdate: 1955 Patient Subjective Report - my shoulder hurts, my toe hurts. Pain Assessment Pain Context: Therapy Assessment Prior to Treatment (10/31/22900) Pain Assessment: NRS 0-10 (10/31/22900) Pain Score: 5 (10/31/22900) Pain Severity - NRS (Calculated): Moderate (10/31/22900) Pain Type: Acute pain (10/31/22900) Pain Location: Teeth, Toe (Comment which one), Shoulder (second toe on right foot. notified nurse that patient would benefit from clerical specialist consultation.) (10/31/22900) Pain Orientation: Upper (10/31/22900) Pain Radiating Towards: upper teeth, left shoulder, 2nd toe on right foot. (10/31/22900) Pain Descriptors: Aching (10/31/22900) Pain Onset: Ongoing (10/31/22900) Pain Frequency: Constant/continuous (10/31/22900) Aggravating Factors: Activity Duration, Anxiety, Positioning, Weakness, Interactions with others (10/31/22900) Functional Impact: Transfers, Turning (10/31/22900) Pre-therapy pain intervention required: Nurse notified (10/31/22900) Pain Interventions Education Provided: Patient (10/31/22900) Non-Pharmacologic Pain Interventions: Position/Reposition, Rest (10/31/22900) Emotional/Spiritual Pain Interventions: Empathetic Discussion, Emotional Support (10/31/22900) Pain Consults Initiated or Completed: Rehab (10/31/22900) Bed Mobility: Performed on bed, Short sit to - from supine and Rolling side to side Bed Mobility Level of Assistance: Total Assistance/Dependent and Moderate Assistance Bed Mobility Comment: Rolling side to side x 8 reps for hygiene, lower body clothing management, and cee pad management. Rolling to right with maximal assist, rolling to left with moderate assist and use of bed-rail. Sit to/from supine dependent in cee lift. Transfer to 1: Bed Transfer from 1: Wheelchair Technique 1: Mechanical lift Transfer Level of Assistance 1: Total Assistance/Dependent Trials/Comments1: Dependent x 2 person assist with cee lift. Transfer to 2: Wheelchair Transfer from 2: Mat Technique 2: Mechanical lift Transfer Level of Assistance 2: Total Assistance/Dependent Trials/Comments 2: Dependent x 3 people for transfers in cee lifts Wheelchair Analysis: Patient dependent in tilt-in space w/c Seated Position: Sitting balance on EOM dependet; patient leans heavily to the left. Mat Position: Sitting on EOM; gastroc stretch, hamstring stretch, hip rotators ROM. PT Treatment Outcomes:: Patient tolerated session poorly and Patient is progressing toward STG PT Summary:: Patient dependent for all aspects of physical therapy. Continue PT as per POC for patient to improve pain management, transfers, sitting balance, and activity tolerance. PT Summary Plan of Care: Continue with current plan of care Pain Evaluation and Follow-up Pain Reassessment: 5 (10/31/22 1030) Nursing notified of patient's pain assessment: Primary Nurse (10/31/22 1030) Therapy Minutes Individual Concurrent Co-Treat POULTRY PINNER Individual Treatment POULTRY PINNER Time In : 0900 POULTRY PINNER Time Out: 1030 POULTRY PINNER Total Time with Patient (Min): 90 min TANIA PECK, ALEKSANDR 10/31/2022 * OIL GAS AND PIPE TESTER Treatment Note - Misael Miranda CCC-OIL GAS AND PIPE TESTER - 10/31/2022 8:15 AM CDT Speech Language Pathologist Treatment Patient Name: Esperanza Chaparro Patient Birthdate: 1955 Patient Subjective Report - Pt alert, in bed, still eating breakfast but amenable to treatment. Pain Assessment Pain Context: Therapy Assessment Prior to Treatment (10/31/22 0815) Pain Assessment: NRS 0-10 (10/31/22 0815) Pain Score: 5 (10/31/22 0815) Pain Severity - NRS (Calculated): Moderate (10/31/22 0815) Pain Location: Teeth (10/31/22 0815) Pain Descriptors: Aching (10/31/22 0815) Pain Frequency: Constant/continuous (10/31/22 08) Pain Interventions Pain Consults Initiated or Completed: Other (Comment) (RN in room and gave pt pain meds.) (815) Cognitive Communication: Functional problem solving and Short-term memory (TX Focus: Functional PS,STM, NMES for facial weakness, L inattention.) Dysphagia Treatment: Swallow strategy training ST Narrative:: Patient was seen for therapy in his room in bed. Patient was observed taking his pills with RN. Pills were given whole in puree. No difficulty notedbut the process was difficult due to positioning. 1. Patient was assisted with finishing his breakfast tray, which with the OIL GAS AND PIPE TESTER included assist with 1 milk and 1 Ensure. Only one coughing episode noted, likely due to laryngeal penetration x1. Strongcough. No pocketing noted this morning. 2. Functional PS: 100% x 2 examples 3. L Neglect: 3/3 = 100% across three tasks. Patient remained in his room with call light and phone left within reach. Helped RN reposition patient. RN and FACTORY LAY OUT ENGINEER with patient upon exiting room. ST Session Outcomes: Patient/family education progressing, Progressing toward STGs and Tolerated treatment well ST Summary Plan of Care: Continue with current plan of care Pain Evaluation and Follow-up Pain Reassessment: 5 (RN just gave meds) (10/31/22 0900) Therapy Minutes Individual Concurrent Co-Treat Time In : 0815 Time Out: 0900 Total Time with Patient (Min): 45 min Missed Minutes : 0 MISAEL MIRANDA CCC-OIL GAS AND PIPE TESTER 10/31/2022 * Plan of Care - Jessica Mccann RN - 10/31/2022 4:55 AM CDT Problem: Infection Goal: Absence of infection and prevention of transmission during hospitalization Outcome: Progressing Flowsheets (Taken 10/30/2022 1513 by Keya Goodrich RN) Absence of infection and prevention of transmission during hospitalization: Assess and monitor for signs and symptoms of infection and vital signs Monitor lab/diagnostic results Administer medications as ordered Problem: Pain Goal: Patient's Pain/Discomfort is Manageable Outcome: Progressing Flowsheets (Taken 10/31/2022 0454) Patient's Pain/Discomfort is Manageable: Assess pain level Include patient/family/caregiver in decisions related to pain management Provide Emotional/Spiritual Support Offer non-pharmocological pain management interventions Pain Consult Administer medications as ordered Reassess patient's response and tolerance to discomfort * Plan of Care - Keya Goodrich RN - 10/30/2022 3:13 PM CDT Problem: Infection Goal: Absence of infection and prevention of transmission during hospitalization Outcome: Progressing Flowsheets (Taken 10/30/2022 1513) Absence of infection and prevention of transmission during hospitalization: Assess and monitor for signs and symptoms of infection and vital signs Monitor lab/diagnostic results Administer medications as ordered Problem: Knowledge Deficit Goal: Patient and/or family demonstrate readiness to learn Outcome: Progressing Goal: Patient and/or family verbalizes understanding of education, and/or performs desired skill Outcome: Progressing Problem: Discharge Planning Goal: Discharge to home or other facility with appropriate resources Outcome: Progressing Goal: client services assistant will develop a plan to decrease their burden and enhance comfort in role Outcome: Progressing Problem: Delirium Goal: Prevent and Manage Delirium Outcome: Progressing Problem: Fall Safety: [place] Precautions Goal: Free from fall injury Outcome: Progressing Problem: Fall Huddle Goal: Free from Fall Injury Outcome: Progressing Problem: Fall Prevention: Fatigue Bundle Goal: Patient will be free from Fall Injury Outcome: Progressing Problem: Fall Safety: [place] Precautions Goal: Free from fall injury Outcome: Progressing Problem: Fall Huddle Goal: Free from Fall Injury Outcome: Progressing Problem: Pain Goal: Patient's Pain/Discomfort is Manageable Outcome: Progressing Problem: Knowledge Deficit Goal: Patient/family/caregiver demonstrates understanding of disease process, treatment plan, medications, and discharge instructions Outcome: Progressing Problem: Potential for Compromised Skin Integrity Goal: Skin integrity is maintained or improved Outcome: Progressing Goal: Nutritional status is improving Outcome: Progressing Problem: Urinary Incontinence Goal: Perineal skin integrity is maintained or improved Outcome: Progressing Problem: Bowel Incontinence Goal: Perineal Skin Integrity is Maintained or Improved Outcome: Progressing Problem: Fall Prevention: Neglect/Hemiparesis Bundle Goal: Patient will be free from Fall Injury Outcome: Progressing * Individualized Overall Plan of Care - Carolina Garibay MD - 10/30/2022 3:07 PM CDT Images from the original note were not included. INDIVIDUALIZED OVERALL PLAN OF CARE I have reviewed the admitting History and Physical examination on Esperanza Chaparro and monitored the patient's status and progress since the admission. Based on the patient's multi-disciplinary evaluations, deficits, and functional needs, my plan of care is inclusive of the following therapies and associated goals: Physical Therapy The following physical therapy plan of care is recommended for Mr. Chaparro PT Plan of Care & Recommendations Evaluation Summary: Mr. Chaparro presents to rehab s/p right ICA Occlusion. Pt with history of multiple CVA's with ? In same area but presents with new dense left hemiparesis vs prior deficits. [facility], found with peritonsillar abscess, s/p drainage and antibiotic. While at [facility], felt pt with left weakness and questionable CVA so transferred to acute hospital. While in ICU: tachypnea, several attempts to intubate. Right ischemic infarct. Other PMH: multiple CVA's, HTN, MA, CAD-Stents, DM, hyperlipedemia, positive tobacco, COPD. Mr. Chaparro was reportedly independent with mobility in the home with use of a rollator. Mr. Chaparro currently presents with dense hemiparesis on left side, requiring total assist for bed mobility, sitting. Unable to attempt stance this date due to hyptension. He presents with good potential to benefit from intensive therapy to maximize functional gains. Problem List: Decreased endurance; Decreased mobility; Decreased postural alignment in sitting/standing; Decreased range of motion; Decreased safety awareness; Decreased strength; Decreased tolerance to handling; Hemisensory Deficits; Impaired ambulation ability; Impaired balance; Impaired bed mobility; Impaired elevation ability; Impaired Neuromm Control; Impaired Neuromm Strength; Impaired sensation; Impaired tone; Impaired transfer ability; Impaired wheelchair management; Pain PT to provide the following services: Balance/proprioceptive training; Body Weight Support System; Education - patient/family; Elevation training; Fall prevention; Gait training; Neuromuscular re-education; Sensory integration; Therapeutic activities; Wheelchair safety and mobility training Frequency: 45-90 minutes 5 out of 7 days Duration (# of Days): 30 Duration Expiration Date: 11/18/22 Mr. Chaparro will achieve the following: Offset Lithographic 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 Goals: Walk 10 Feet LTG: Dependent (pt will ambulate 10ft with hemiaide and mod/max of two) Wheel 50 Feet with Two Turns LTG: Partial/moderate assistance (pt propel w/c 60ft with right UE/LE and mod assist for guidance.) PT Other Residential Goals Flowsheet Row Most Recent Value Other PT Residential Goals Other Goals - Residential Residential 1, Offset Lithographic 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 2, Residential 3, Offset Lithographic 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 4 Filed on: 10/29/20221748 Other Residential Goal 1 w/c to/from level surface with transfer board and mod assist Filed on: 10/29/20221748 Other Residential Goal 1 Status Established Filed on: 10/29/20221748 Other Residential Goal 2 sit to stand to hemiaide and mod assist of two Filed on: 10/29/20221748 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 Lithographic 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 Goal 2 Status Established Filed on: 10/29/20221748 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 Lithographic 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 Goal 3 tolerate upright position in regular w/c vs tilt in space w/c when out of bed Filed on: 10/29/20221748 Other Residential Goal 3 Status Established Filed on: 10/29/20221748 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 Lithographic 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 Goal 4 sit to/from supine with mod assist. Filed on: 10/29/20221748 Other Residential Goal 4 Status Established Filed on: 10/29/20221748 Occupational Therapy: The following occupational therapy plan of care is recommended for Mr. Chaparro: OT Plan of Care & Recommendations Evaluation Summary: Mr Chaparro is a 67 year old man with diagnosis of CVA. He has PMH of CVA, COPD, HTN, DM, MA, and peritonsillar abscess. Precautions: fall, full code, soft and bite sized food, thin liquids Mr Chaparro's current functional status is as follows: EATING: supervision, he uses R UE only to feed himself ORAL HYGIENE: min assist; pt uses R UE only; min a for thoroughness, cues for sequencing TOILETING: total assist, assist for all aspects BATHING: total assist, bed level, two person assist needed for washing LB, pt is able to assist with washing his face but needs some cues for thoroughness UB DRESSING: dependent--assist needed for all aspects LB DRESSING: dependent--assist needed for all aspects PUTTING ON/TAKING OFF FOOTWEAR: dependent--assist needed for all aspects ROLL LEFT AND RIGHT: dependent--two person assist for rolling to the right; mod assist for rolling to the left SIT TO LYING: dependent LYING TO SITTING: dependent SIT TO STAND: NT b/c of medical concerns--low BP and heart rate at time of evaluation BED TO CHAIR TRANSFER: NT b/c of medical concerns--low BP and heart rate at time of evaluation TOILET TRANSFER: NT b/c of safety and medical concerns Problem List: Mobility; Decreased functional endurance; Decreased functional status in ADL's; Impaired balance; Decreased transfer status; Decreased upper extremity strength; Impaired muscle tone; Decreased upper extremity range of motion; Impaired gradation of grasp; Impaired hand eye coordination; Impaired visual and/or perceptual skills; Impaired cognitive skills OT to provide the following services: ADL and Transfer Training; Neuromusculature Re-education; UE Therex; Cognitive Retraining; Visual/Perceptual Skills Training; Coordination Training; Balance Training; Functional Endurance Training; Home Safety and Modification Education; Positioning; Adaptive Equipment/DME Education Frequency: 45-90 minutes 5 out of 7 days Duration (# of Days): 28 Duration Expiration Date: 11/26/22 Mr. Chaparro will achieve the following: Residential Goals: Toileting Hygiene LTG: Partial/moderate assistance Shower/Bathe Self LTG: Partial/moderate assistance Upper Body Dressing LTG: Partial/moderate assistance Lower Body Dressing LTG: Partial/moderate assistance Putting On/Taking Off Footwear LTG: Partial/moderate assistance Chair/[id number] Transfer LTG: Partial/moderate assistance Toilet Transfer LTG: Partial/moderate assistance Speech Therapy: The following speech therapy plan is recommended for Mr. Chaparro: OIL GAS AND PIPE TESTER Plan of Care & Recommendations OIL GAS AND PIPE TESTER Evaluation Summary Mr. Chaparro is a 67 year old male referred to speech therapy for evaluation and treatment following recent hospitalization with a diagnosis of CVA. Patient presented to the hospital initially on 10/12/22 due to a peritonsillar abscess, reporting dysphagia symptoms with liquids and solids. While there, he developed left sided weakness with confirmation of CVA. He was living with his sister prior to admission and was independent with ADLs and IADLs and driving. 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 Initial assessment revealed the following functional status: SWALLOWING: Current diet: SOFT & BITE SIZED with THIN LIQUIDS (IDDSI 6/0) Oral phase- Mild spillage and pocketing from the left side observed with regular solid (crow cracker); mild spillage of thin liquid from the left side. Pharyngeal phase- No clinical signs of aspiration observed with regular solid (crow cracker); immediate cough noted with drinks of thin liquid from large bore straw; improvement noted when drinking liquid from cup edge. MASA score of 170 indicates mild dysphagia with no aspiration risk. COMMUNICATION: COMPREHENSION- SUPERVISION. Patient is able to comprehend information regarding basic needs over 90% of the time. Increased difficulty noted with comprehension of complex or abstract information. Yes/No Questions: Basic 100%; Complex 100%. Following Commands: Simple- 2/2 ; Complex- 2/2 Identification of pictures/objects: 4/4 Comprehension of conversation: WNL for basic information. Reading comprehension: Impaired due to left inattention/neglect. EXPRESSION- SUPERVISION. Patient is able to express information regarding basic needs over 90% of the time. Increased difficulty noted with comprehension of complex or abstract information. Patient presents with mild dysarthria but mostly intelligible speech. Automatic Speech: WNL Repetition: WNL Naming: Confrontational- WNL Speech Intelligibility: Mostly intelligible; mildly reduced articulatory contacts. Writing: Not assessed COGNITION: PROBLEM-SOLVING- MODERATE ASSISTANCE. Patient is able to solve routine problems 50-74% of the time. Attention: Reduced secondary to fatigue and discomfort. Verbal Problem-Solving: Patient was able to provide logical and complete responses for basic and multi-factor problem-solving situations. Thought Organization: Divergent Naming- Patient was able to name 6 fruits in one minute period (normal is approximately 15); Convergent naming- 3/3 correct. Safety Awareness: Patient was able to verbalize use of 911, use of call light, and fall risk. Sequencing: Not assessed Math Reasoning: Not assessed MEMORY: MODERATE ASSISTANCE. Patient is able to recognize and remember people, routines, and requests 50-74% of the time. Orientation: Oriented to person, temporal information with exception of the day of the week; not oriented to place (said [facility]). Delayed Recall: Able to recall 0/3 unrelated words following a 5 minute delay; 2/3 with cues. Paragraph Retention: Patient was able to recall 6/20 details from a paragraph presented verbally; answered open-ended questions regarding the paragraph with 3/6 correct. SOCIAL INTERACTION: MINIMAL ASSISTANCE. Patient presented with fatigue and discomfort during the evaluation. He required frequent encouragement to continue with assessment. RECOMMENDATION: Mr. Chaparro has good potential for improvement in rehab and will benefit from speech therapy services 45-90 minutes daily, 5 days per week in individual or group sessions as appropriate. Plan of care to include patient and family education; use of compensatory strategies; interventions for improved strength and movement of left facial musculature; interventions for improved swallowing function to manage least restrictive solid and liquid consistencies; and cognitive retraining for functional reasoning and memory skills to increase safety and independence at discharge. The Patient: [ ]is able to state 2 risk factors without VCs prior to discharge [ ]requires cues to recall 2 stroke risk factors [ X] Is unable to state stroke risk factors due to communication or cognitive deficits Therapy Recommendations: Speech therapy services recommended Problem List: Cognitive Communication Disorder; Dysarthria; Pharyngeal Dysphagia; Oral Dysphagia Compensatory Swallowing Techniques Recommended: Small bites; Small sips; Eat slowly-control rate; Seated upright with all PO intake; Monitor oral spillage; Oral care post PO intake; Other (comment) Avoid large bore straw Level of Supervision at Meals: 1 to 1 assistance due to cognitive or motor deficits OIL GAS AND PIPE TESTER to provide the following services: Ongoing patient/caregiver training; Basic cognitive communication skills training/strategies; Functional communication skills training/strategies; Articulatory precision training/strategies OIL GAS AND PIPE TESTER to provide the following services: Diet modification as needed; Ongoing patient/caregiver training; Train in compensatory swallowing strategies; Therapeutic feeding trials Frequency: 45-90 minutes 5 out of 7 days Duration (# of Days): 28 Duration Expiration Date: 11/25/22 Responsible Speech Therapist: Lee Ann Ramirez MS, [facility]-OIL GAS AND PIPE TESTER Mr. 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 Problem Solving Expected Achievement Date: 11/25/22 Memory Level of Assistance to Meet Memory: Min assist (10-24%) Memory Details: Improve functional memory skills to minimal assistance to recognize and remember people, routines, and requests at least 75% of the time. Memory Expected Achievement Date: 11/25/22 Swallowing Swallowing Details: Safely manage regular texture solids and thin liquids with no clinical signs ofdysphagia. Swallowing Expected Achievement Date: 11/25/22 Additionally, the patient will receive 24 hour rehabilitation nursing with the following goals: Care Plan Problems/Goals 0 of 7 Goals Met 0 of 7 Met Progressing (7) Absence of infection and prevention of transmission during hospitalization (Infection) Prevent and Manage Delirium (Delirium) Free from fall injury (Fall Safety: [place] Precautions) Free from fall injury (Fall Safety: [place] Precautions) Patient's Pain/Discomfort is Manageable (Pain) Skin integrity is maintained or improved (Potential for Compromised Skin Integrity) Nutritional status is improving (Potential for Compromised Skin Integrity) Overall, I expect the patient will stay at our facility until approximately 11/11/2022, with an anticipated discharge destination of Patients own home and a tentative discharge plan of Home with home health. Duration for therapy services would last until patient's discharge date unless new orders state otherwise. The patient's overall plan of care and current status continue to justify the patient's hospital inpatient status. I plan to monitor the patient's health and functional status daily, to assure that there is continuing benefit from our care. The patient's progress towards goals and treatment will also be monitoredon an ongoing basis during team conferences. The patient has a fair prognosis for benefiting from this program and returning to home and community. CAROLINA GARIBAY MD 10/30/2022 3:07 PM CDT * OT Treatment Note - Luke Robertson, OT - 10/30/2022 10:30 AM CDT Occupational Therapy Treatment Patient Name: Esperanza Chaparro Patient Birthdate: 1955 Patient Subjective Report - My butt hurts like hell. It's around the tailbone. Pain Assessment Pain Context: Therapy Assessment Prior to Treatment (10/30/22 1034) Pain Assessment: NRS 0-10 (10/30/22 1034) Pain Score: 10 (10/30/22 1034) Pain Severity - NRS (Calculated): Severe (10/30/22 1034) Vital Signs Pulse: 57 (10/30/22 1046) BP: 121/72 (10/30/22 1046) MAP (mmHg): 88.33 (10/30/22 1046) BP Location: Left arm (10/30/22 1046) BP Method: Automatic (10/30/22 1046) Patient Position: Sitting (10/30/22 1046) SpO2: 95 % (10/30/22 1046) ADL Training: ADL Training Narrative: EATING: supervision with occasional cues for encouragement and to continue task; some cues needed for locating items on left side of tray. ORAL HYGIENE: supervision, cues for thoroughness (especially for left side of mouth), and locating items on left side of his visual field TOILETING: BATHING: UB DRESSING: LB DRESSING: PUTTING ON/TAKING OFF FOOTWEAR: ROLL LEFT AND RIGHT: SIT TO LYING: LYING TO SITTING: SIT TO STAND: BED TO CHAIR TRANSFER: dependent with use of cee lift per PT TOILET TRANSFER: 10/30/22 1126 Vision Assessment Perform Visual Assessment Yes Glasses Bifocal Acuity Tested with glasses Near-Far Acuity Score 10/20 with each eye Visual Orozco Impaired left Pursuits Intact Saccades Intact Eye Alignment Intact Spontaneous Nystagmus Not present Gaze Evoked Nystagmus Not tested Clock Drawing Impaired 3 out of 4 (patient made nenana appropriately but had difficutly placing numbers and hands) Star Cancellation Test Left Omissions Additional Comments pt reports that he went to the eye doctor a few months ago. 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 He reports that he had some trouble seeing on the left side even before his stroke. OT Therapeutic Activity: Therapeutic Exercise: Mr Chaparro c/o pain in buttocks. He needed total assist for repositioning in wheelchair. He was tilted back for pressure relief. Mr Chaparro participated in L UE PROM (he tolerated 90 degrees of shoulder flexion and abduction, and full elbow flexion and extension, supination/pronation, wrist and finger movements. No AROM noted in L UE. L UE is flaccid. Pt reports some pain in L shoulder at rest and with PROM. Mr Chaparro used 2# weights for L UE strengthening exercises, punches and bicep curls, 20 reps each. . He needed frequent cues for attention to task. Perform In-Depth Visual Assessment?: Yes Treatment, Outcomes and Plan: OT Narrative:: Mr Chaparro tolerated session fairly. He c/o pain throughout session in tailbone/buttocks and L UE. He participated in OT vision screen (left inattention noted). Continued intensive OT recommended to maximize functional independence and safety. OT Treatment Outcomes:: Patient tolerated treatment fairly, Safety device reapplied, Patient is progressing toward STG(s) and Goals met for this session OT Summary Plan of Care: Continue with current plan of care Pain Evaluation and Follow-up Pain Reassessment: 10 (left shoulder, buttocks) (10/30/22 1149) Nursing notified of patient's pain assessment: Primary Nurse (10/30/22 6807) Therapy Minutes Individual Concurrent Co-Treat Individual (OT) Time In : 1030 Time Out: 1204 Total Time with Patient (Min): 94 min LUKE ROBERTSON OT 10/30/2022 * OIL GAS AND PIPE TESTER Treatment Note - Lee Ann RamirezST - 10/30/2022 9:45 AM CDT Speech Language Pathologist Treatment Patient Name: Esperanza Chaparro Patient Birthdate: 1955 Patient Subjective Report - I can't stand this anymore. My butt hurts. Pain Assessment Pain Context: Therapy Assessment Prior to Treatment (10/30/22944) Pain Assessment: None/denies pain (10/30/22944) Dysphagia Treatment: Swallow strategy training Recommended diet: IDDSI 6 - Soft & Bite-Sized / NDD3, Pills Whole in IDDSI 4 (Pureed / Extremely Thick) and IDDSI 0 - Thin Liquids / All Liquids Compensatory swallowing techniques: Small bites, Small sips, Eat slowly-control rate, Seated upright with all PO intake, Monitor oral spillage, Oral care post PO intake and Other (comment) (Avoid large bore straw) Level of supervision at meals recommended: 1 to 1 assistance due to cognitive or motor deficits Patient/Caregiver Training: Completed with patient, Therapy goals and treatment plan, Dysphagia, Oral hygiene, Swallow strategies and Current diet ST Narrative:: 1. Patient was seen for therapy in his room, seated upright in wheelchair; alert andcooperative with all tasks. 2. Patient was observed taking his pills with RN. Pills were given whole in puree. Patient requiredextra sips of liquid to wash down pills. 3. Patient was assisted with finishing his breakfast tray, which had not been completed due to earlier PT session. PT reported that patient had had a coughing episode while drinking Ensure via straw.Patient requested Mountain Dew, which was on his table. OIL GAS AND PIPE TESTER gave him Mountain Dew in his water pitcher to drink from the edge of the pitcher. Patient presented with significant spillage from the leftside of the oral cavity. Patient asked if he could drink from the bottle. He again presented with spillage, but less than with the pitcher. Patient was fed bites of scrambled egg and oatmeal. Oral residue noted with egg; no difficulty with oatmeal. OIL GAS AND PIPE TESTER gave him sips of Ensure via small bore straw, pulling the straw out from his mouth to keep him from getting too much. No coughing was observed with direct assistance from OIL GAS AND PIPE TESTER when patient took controlled bites/sips of food and liquid. 3. Patient remained in his room with call light and phone left within reach. Chair alarm activated. ST Session Outcomes: Patient/family education progressing, Progressing toward STGs and Tolerated treatment well ST Summary Plan of Care: Continue with current plan of care Pain Evaluation and Follow-up Response to Therapy Interventions: Other (comment) (Reporte discomfort in buttocks at the end of the session.) (10/30/22 1029) Pain Reassessment: 9 (10/30/22 1029) Nursing notified of patient's pain assessment: Other (comment) (RN not notified at this time due toOT scheduled next. OT able to reposition in wheelchair.) (10/30/22 1029) Therapy Minutes Individual Concurrent Co-Treat Time In : 0945 Time Out: 1030 Breaks/Pauses (Min): 0 mins Total Time with Patient (Min): 45 [address] 10/30/2022 * PT Treatment Note - Irlanda Sher, PT - 10/30/2022 9:00 AM CDT PT Treatment Patient Name: Esperanza Chaparro Patient Birthdate: 1955 Patient Subjective Report - pt reports some pain in right 3rd toe- slipper sock removed and repositioned. Also reports left shoulder pain and left groin pain with movement. RN aware. Pt ok to continue therapy Pain Interventions Non-Pharmacologic Pain Interventions: Position/Reposition, Distractions, Other (Comment) (removed and repositioned slipper sock on right foot) (10/30/22 0939) Pt in bed upon arrival with HOB elevated, being assisted with breakfast. Pt with difficulty with midline at trunk and head positioning. Breakfast held to assist with positioning pt and up out of bed to continue with breakfast Pt rolled to assist with hygiene s/p incontinence of loose BM: to left with use of bedrail, max assist to complete motion. To right with use of drawsheets- max of two to complete motion, support right UE. PROM to left leg in flexion/extension, ab/adduction and ankle ROM. Pt able to flex/extend right legto command. Dept assist to rosa paper scrub pants. Repeated rolling as noted in bed x4. Pt does attempt to assist to commands. Use of cee to transition bed to tilt in space w/c. Positioning in w/c: use of half lap tray on left for UE support, pillow at cervical region until head rest can be adequately adjusted. PT Treatment Outcomes:: Safety device reapplied and Patient tolerated treatment well PT Summary:: Mr. Chaparro tolerated the session well. He responds to commands and attempts to assist with right side as able. Left side remains grossly flaccid in UE and trace movement in left hip. He works hard and will continue to benefit from intensive therapy to maximize functional gains. PT Summary Plan of Care: Continue with current plan of care Pain Evaluation and Follow-up Response to Therapy Interventions: Improved positioning (up in tilt in space w/c, half tray for left U) (10/30/22943) Pain Reassessment: 6 (10/30/22943) Nursing notified of patient's pain assessment: Primary Nurse (10/30/22943) Therapy Minutes Individual Concurrent Co-Treat Individual (PT) Time In : 0900 Time Out: 944 Total Time with Patient (Min): 45 min IRLANDA SHER, PT 10/30/2022 * Plan of Care - Keya Goodrich RN - 10/29/2022 2:12 PM CDT Problem: Infection Goal: Absence of infection and prevention of transmission during hospitalization Outcome: Progressing Flowsheets (Taken 10/29/2022 1258) Absence of infection and prevention of transmission during hospitalization: Assess and monitor for signs and symptoms of infection and vital signs Monitor lab/diagnostic results Administer medications as ordered Problem: Knowledge Deficit Goal: Patient and/or family demonstrate readiness to learn Outcome: Progressing Goal: Patient and/or family verbalizes understanding of education, and/or performs desired skill Outcome: Progressing Problem: Discharge Planning Goal: Discharge to home or other facility with appropriate resources Outcome: Progressing Goal: client services assistant will develop a plan to decrease their burden and enhance comfort in role Outcome: Progressing Problem: Delirium Goal: Prevent and Manage Delirium Outcome: Progressing Problem: Fall Safety: [place] Precautions Goal: Free from fall injury Outcome: Progressing Problem: Fall Huddle Goal: Free from Fall Injury Outcome: Progressing Problem: Fall Prevention: Fatigue Bundle Goal: Patient will be free from Fall Injury Outcome: Progressing Problem: Fall Safety: [place] Precautions Goal: Free from fall injury Outcome: Progressing Problem: Fall Huddle Goal: Free from Fall Injury 10/29/2022 1409 by Keya Goodrich RN Flowsheets (Taken 10/29/2022 1409) Was a Huddle Completed?: Yes Participating Staff: PT Nurse Note: Cee transfer, tilt-space chair 10/29/2022 1258 by Keya Goodrich RN Outcome: Progressing Problem: Pain Goal: Patient's Pain/Discomfort is Manageable Outcome: Progressing Problem: Knowledge Deficit Goal: Patient/family/caregiver demonstrates understanding of disease process, treatment plan, medications, and discharge instructions Outcome: Progressing Problem: Potential for Compromised Skin Integrity Goal: Skin integrity is maintained or improved Outcome: Progressing Goal: Nutritional status is improving Outcome: Progressing Problem: Urinary Incontinence Goal: Perineal skin integrity is maintained or improved Outcome: Progressing Problem: Bowel Incontinence Goal: Perineal Skin Integrity is Maintained or Improved Outcome: Progressing * Plan of Care - Keya Goodrich RN - 10/29/2022 2:10 PM CDT Problem: Infection Goal: Absence of infection and prevention of transmission during hospitalization Outcome: Progressing Flowsheets (Taken 10/29/2022 1258) Absence of infection and prevention of transmission during hospitalization: Assess and monitor for signs and symptoms of infection and vital signs Monitor lab/diagnostic results Administer medications as ordered Problem: Knowledge Deficit Goal: Patient and/or family demonstrate readiness to learn Outcome: Progressing Goal: Patient and/or family verbalizes understanding of education, and/or performs desired skill Outcome: Progressing Problem: Discharge Planning Goal: Discharge to home or other facility with appropriate resources Outcome: Progressing Goal: client services assistant will develop a plan to decrease their burden and enhance comfort in role Outcome: Progressing Problem: Delirium Goal: Prevent and Manage Delirium Outcome: Progressing Problem: Fall Safety: [place] Precautions Goal: Free from fall injury Outcome: Progressing Problem: Fall Huddle Goal: Free from Fall Injury Outcome: Progressing Problem: Fall Prevention: Fatigue Bundle Goal: Patient will be free from Fall Injury Outcome: Progressing Problem: Fall Safety: [place] Precautions Goal: Free from fall injury Outcome: Progressing Problem: Fall Huddle Goal: Free from Fall Injury 10/29/2022 1409 by Keya Goodrich RN Flowsheets (Taken 10/29/2022 1409) Was a Huddle Completed?: Yes Participating Staff: PT Nurse Note: Cee transfer, tilt-space chair 10/29/2022 1258 by Keya Goodrich RN Outcome: Progressing Problem: Pain Goal: Patient's Pain/Discomfort is Manageable Outcome: Progressing Problem: Knowledge Deficit Goal: Patient/family/caregiver demonstrates understanding of disease process, treatment plan, medications, and discharge instructions Outcome: Progressing Problem: Potential for Compromised Skin Integrity Goal: Skin integrity is maintained or improved Outcome: Progressing Goal: Nutritional status is improving Outcome: Progressing Problem: Urinary Incontinence Goal: Perineal skin integrity is maintained or improved Outcome: Progressing Problem: Bowel Incontinence Goal: Perineal Skin Integrity is Maintained or Improved Outcome: Progressing * OIL GAS AND PIPE TESTER Swallowing and Communication Evaluation - [facility] - 10/29/2022 1:58 PM CDT Speech Language Pathologist Communication & Swallow Evaluation Patient Name: Esperanza Chaparro Patient Birthdate: 1955 Pain Assessment Pain Context: Therapy Assessment Prior to Treatment (10/29/22 1358) Pain Assessment: NRS 0-10 (10/29/22 1358) Pain Score: 8 (10/29/22 1358) Pain Severity - NRS (Calculated): Severe (10/29/22 1358) Pain Type: Acute pain (10/29/22 1358) Pain Location: Leg (10/29/22 1358) Pain Orientation: Left (10/29/22 1358) Pain Descriptors: Aching (10/29/22 1358) Pain Onset: Ongoing (10/29/22 1358) Pain Frequency: Constant/continuous (10/29/22 1358) Aggravating Factors: Positioning (10/29/22 1358) Additional Pain Site(s)?: Pain 2, Pain 3, Pain 4 (shoulder, neck, head) (10/29/22 1358) Pre-therapy pain intervention required: Nursing medicated patient - see MAR (10/29/22 1358) Pain Interventions Education Provided: Patient (10/29/22 1446) Non-Pharmacologic Pain Interventions: Distractions, Position/Reposition (10/29/22 1446) Pain Site 2 Pain Assessment Site 2: NRS 0-10 (10/29/22 1358) Pain Score Site 2: 8 (10/29/22 1358) Pain Severity - NRS (Calculated): Severe (10/29/22 1358) Pain Type Site 2: Acute pain (10/29/22 1358) Pain Location Site 2: Shoulder (10/29/22 1358) Pain Orientation Site 2: Left (10/29/22 1358) Pain Descriptors Site 2: Aching (10/29/22 1358) Pain Onset Site 2: On-going (10/29/22 1358) Date Pain First Started Site 2: 10/29/22 (10/29/22 1358) Pain Frequency Site 2: Constant/continuous (10/29/22 1358) Pain Aggravating Factors Site 2: Positioning (10/29/22 1358) Pain Site 3 Pain Assessment Site 3: NRS 0-10 (10/29/22 1358) Pain Score Site 3: 8 (10/29/22 1358) Pain Severity - NRS (Calculated): Severe (10/29/22 1358) Pain Type Site 3: Acute pain (10/29/22 1358) Pain Location Site 3: Head (10/29/22 1358) Pain Descriptors Site 3: Headache (10/29/22 1358) Pain Onset Site 3: On-going (10/29/22 1358) Date Pain First Started Site 3: 10/29/22 (10/29/22 1358) Pain Site 4 Pain Assessment Site 4: NRS 0-10 (10/29/22 1358) Pain Score Site 4: 8 (10/29/22 1358) Pain Severity - NRS (Calculated): Severe (10/29/22 1358) Pain Type Site 4: Acute pain (10/29/22 1358) Pain Location Site 4: Neck (10/29/22 1358) Pain Descriptors Site 4: Aching (10/29/22 1358) Pain Onset Site 4: On-going (10/29/22 1358) Pain Frequency Site 4: Constant/continuous (10/29/22 1358) Pain Aggravating Factors Site 4: Positioning (10/29/22 135) Prior Function Level of [place]: Independent with ambulation using an assistive device; Independent with ADLsand function transfers (10/29/22 1319 : Irlanda Sher, PT) Lives With: Family (lives with sister) (10/29/22 0905 : Luke Robertson, JEZ) 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.) (10/29/22 0905 : Luke Robertson, OT) Leisure: Hobbies-yes (Comment) (watch tv) (10/29/22 0905 : Luke Robertson, JEZ) IP REHAB OIL GAS AND PIPE TESTER GEN ASSESSMENT: Pertinent history: CVA Auditory and visual status/observations: Hearing WFL and Wears glasses for reading Diet at current time: IDDSI 6 - Soft & Bite-Sized / NDD3, IDDSI 0 - Thin Liquids / All Liquids and Pills Can Be Taken with Recommended Liquid Consistency Oral peripheral speech mechanism: Left facial weakness and Dysarthria Dentition and oral health status: Able to manage secretions, Coating lingual surface and Compromised oral health Respiratory Status: Room air Comprehension Deficits: Complex conversation Expression Deficits: Generative naming Cognitive Deficits: Further assessment indicated, Internally distracted, Short term memory, Slow processing, Orientation, Information processing- complex, Functional problem solving, Affect, Verbal problem solving and Verbal /thought organization Dysarthria Symptoms: Good intelligibility and Articulation Patient complaints as related to swallowing: Coughing with liquids and Odynophagia/painful swallowing Cognitive status: Awake and alert, Able to follow directions/strategies and Compliant Motor control: Fed self during exam Protective reflexes and vocal quality: Strong cough/throat clear Consistencies tested: IDDSI 7 - Regular / Regular and IDDSI 0 - Thin Liquids / All Liquids Oral phase impairments: Oral spillage/reduced labial seal, Prolonged mastication, Oral residue and Pocketing on left Pharyngeal phase impairments: Cough (comment) (Cough with thin liquids via large bore straw) Clinical impressions: Oral dysphagia, Mild-moderate severity and Overt signs/symptoms of aspirationobserved Special Test and Outcome Measures: Agitated Behavior Scale (ABS), Gill Assessment of Swallowing Ability (MASA) and Oral Health Assessment Tool (OHAT) 10/29/22 1430 Agitated Behavior Scale Short attention span, easy distractibility, inability to concentrate 2 Impulsive, impatient, low tolerance for pain or frustration 1 Uncooperative, resistant to care, demanding 1 Violent and-or threatening violence toward people or property 1 Explosive and-or unpredictable anger 1 Rocking, rubbing, moaning, or other self-stimulating behavior 1 Pulling at tubes, restraints, etc. 1 Wandering from treatment areas 1 Restlessness, pacing, excessive movement 1 Repetitive behaviors, motor and-or verbal (perseveration) 1 Rapid, loud, or excessive talking 1 Sudden changes of mood 1 Easily initiated or excessive crying and-or laughter 1 Self-abusiveness, physical and-or verbal 1 Total 15 10/29/22 1500 Gill Assessment of Swallowing Ability (MASA) Alertness 8 Co-operation 10 Auditory Comprehension 8 Respiration 10 Respiratory rate (for Swallowing) 5 Dysphasia/Aphasia 5 Dyspraxia/Apraxia 5 Dysarthria 4 Saliva 5 Lip Seal 4 Tongue Movement 10 Tongue Strength 10 Tongue Coordination 10 Oral Preparation 8 Gag 5 Palate 10 Bolus Clearance 5 Oral Transit 6 Cough Reflex 5 Cough Voluntary 2 Voice 10 Trache 10 Pharyngeal Phase 10 Pharyngeal Response 5 MASA Total 170 Dysphagia Severity Level Mild Risk for aspiration No Abnormality Detected Oral Health Assessment Tool Lips 1 Saliva 0 Tongue 2 Gums and Tissues 1 Natural Teeth 1 Oral Cleanliness 2 Dental Pain 0 Total Score 7 Goals (in their own words): To be able to eat regular food Goals Generated By:: Patient generated response independently FIM: Comprehension Did the patient complete the activity?: Yes What is the patient's usual mode of comprehension?: Auditory How complex were the patient's conversation and the given directions?: Basic daily needs Did you help the patient?: Yes How much prompting did you give the patient?: Standby (less than 10%) What types of standby prompting did you use with the patient?: Slowed speech rate, Stress particular words or phrases Comprehension FIM Score: 5 Expression Did the patient complete the activity?: Yes What is the patient's usual mode of expression?: Vocal How complex were the patient's ideas?: Basic needs and ideas Did you help the patient?: Yes How much prompting did you give the patient?: Standby (less than 10%) Expression FIM Score: 5 Social Interaction Did the patient complete the activity?: Yes Did you help the patient?: Yes How much direction did you give the patient?: Minimal assistance (10% to 25%) Social Interaction FIM Score: 4 Problem Solving Did the patient complete the activity?: Yes How complex were the problems that the patient solved?: Routine problems only Did you help the patient?: Yes How much direction did you give the patient?: Moderate assistance (26% to 50%) Problem Solving FIM Score: 3 Memory Did the patient complete the activity?: Yes Did you help the patient?: Yes How much prompting did you give the patient?: Moderate assistance (26% to 50%) Memory FIM Score: 3 Quality Scores Admission: Hearing, Speech, and Vision Expression of Ideas and Wants: Some difficulty Understanding Verbal and Non-Verbal Content: Usually understands Brief Interview for Mental Status (BIMS) Repetition of Three Words (First Attempt): 3 Temporal Orientation: Year: Correct Temporal Orientation: Month: Accurate within 5 days Temporal Orientation: Day: Incorrect Recall: Sock : No, could not recall Recall: Blue : Yes, no cue required Recall: Bed : No, could not recall BIMS Summary Score: 10 Offset Lithographic 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 Goals: Status on Evaluation Goal Problem Solving Level of Assistance to Meet Problem Solving: Min assist (10-24%) (10/29/221515) Problem Solving Details: Improve functional problem-solving skills to minimal assistance to solve routine problems at least 75% of the time. (10/29/221515) Problem Solving Expected Achievement Date: 11/25/22 (10/29/221515) Memory Level of Assistance to Meet Memory: Min assist (10-24%) (10/29/221515) Memory Details: Improve functional memory skills to minimal assistance to recognize and remember people, routines, and requests at least 75% of the time. (10/29/221515) Memory Expected Achievement Date: 11/25/22 (10/29/221515) Swallowing Swallowing Details: Safely manage regular texture solids and thin liquids with no clinical signs ofdysphagia. (06/22/23 1516) Swallowing Expected Achievement Date: 11/25/22 (10/29/22 1516) Additional Status & Goals: N/A OIL GAS AND PIPE TESTER Short Term Goals: Problem Solving: Details: Complete functional problem-solving/reasoning tasks with 70% accuracy. Expected Achievement Date: 11/05/2022 Goal Status: Established Memory: Details: Complete short term memory tasks with 70% accuracy. Expected Achievement Date: 11/05/2022 Goal Status: Established Additional Cognition: Details: Participate in further assessment of cognitive skills using a standardized measure. Expected Achievement Date: 11/05/2022 Goal Status: Established Swallowing: Details: Safely manage current diet and thin liquids using compensatory strategies with no clinicalsigns of dysphagia. Expected Achievement Date: 11/05/2022 Goal Status: Established Other STG 1: Focus: Swallowing Details: Participate in NMES (PENS) to stimulate left facial musculature. Expected Achievement Date: 11/05/2022 Goal Status: Established Other STG 2: Focus: Additional Cognition Level of Assistance to Meet Other STG 2: Independent Details: Recall 2 factors for stroke prevention independently. Expected Achievement Date: 11/05/2022 Goal Status: Established Other STG 3: Focus: Additional Cognition Level of Assistance to Meet Other STG 3: Min assist (10-24%) Details: Complete tasks to target left attention with minimal assistance. Expected Achievement Date: 11/05/2022 Goal Status: Established Evaluation Summary: Mr. Chaparro is a 67 year old male referred to speech therapy for evaluation and treatment following recent hospitalization with a diagnosis of CVA. Patient presented to the hospital initially on 10/12/22 due to a peritonsillar abscess, reporting dysphagia symptoms with liquids and solids. While there, he developed left sided weakness with confirmation of CVA. He was living with [facility] prior to admission and was independent with ADLs and IADLs and driving. 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 Initial assessment revealed the following functional status: SWALLOWING: Current diet: SOFT & BITE SIZED with THIN LIQUIDS (IDDSI 6/0) Oral phase- Mild spillage and pocketing from the left side observed with regular solid (crow cracker); mild spillage of thin liquid from the left side. Pharyngeal phase- No clinical signs of aspiration observed with regular solid (crow cracker); immediate cough noted with drinks of thin liquid from large bore straw; improvement noted when drinkingliquid from cup edge. MASA score of 170 indicates mild dysphagia with no aspiration risk. COMMUNICATION: COMPREHENSION- SUPERVISION. Patient is able to comprehend information regarding basic needs over 90% of the time. Increased difficulty noted with comprehension of complex or abstract information. Yes/No Questions: Basic 100%; Complex 100%. Following Commands: Simple- 2/2 ; Complex- 2/2 Identification of pictures/objects: 4/4 Comprehension of conversation: WNL for basic information. Reading comprehension: Impaired due to left inattention/neglect. EXPRESSION- SUPERVISION. Patient is able to express information regarding basic needs over 90% of the time. Increased difficulty noted with comprehension of complex or abstract information. Patient presents with mild dysarthria but mostly intelligible speech. Automatic Speech: WNL Repetition: WNL Naming: Confrontational- WNL Speech Intelligibility: Mostly intelligible; mildly reduced articulatory contacts. Writing: Not assessed COGNITION: PROBLEM-SOLVING- MODERATE ASSISTANCE. Patient is able to solve routine problems 50-74% of the time. Attention: Reduced secondary to fatigue and discomfort. Verbal Problem-Solving: Patient was able to provide logical and complete responses for basic and multi-factor problem-solving situations. Thought Organization: Divergent Naming- Patient was able to name 6 fruits in one minute period (normal is approximately 15); Convergent naming- 3/3 correct. Safety Awareness: Patient was able to verbalize use of 911, use of call light, and fall risk. Sequencing: Not assessed Math Reasoning: Not assessed MEMORY: MODERATE ASSISTANCE. Patient is able to recognize and remember people, routines, and requests 50-74% of the time. Orientation: Oriented to person, temporal information with exception of the day of the week; not oriented to place (said [facility]). Delayed Recall: Able to recall 0/3 unrelated words following a 5 minute delay; 2/3 with cues. Paragraph Retention: Patient was able to recall 6/20 details from a paragraph presented verbally; answered open-ended questions regarding the paragraph with 3/6 correct. SOCIAL INTERACTION: MINIMAL ASSISTANCE. Patient presented with fatigue and discomfort during the evaluation. He required frequent encouragement to continue with assessment. RECOMMENDATION: Mr. Chaparro has good potential for improvement in rehab and will benefit from speech therapy services 45-90 minutes daily, 5 days per week in individual or group sessions as appropriate.Plan of care to include patient and family education; use of compensatory strategies; interventionsfor improved strength and movement of left facial musculature; interventions for improved swallowing function to manage least restrictive solid and liquid consistencies; and cognitive retraining for functional reasoning and memory skills to increase safety and independence at discharge. The Patient: [ ]is able to state 2 risk factors without VCs prior to discharge [ ]requires cues to recall 2 stroke risk factors [ X] Is unable to state stroke risk factors due to communication or cognitive deficits Recommended diet: IDDSI 6 - Soft & Bite-Sized / NDD3, Pills Can Be Taken with Recommended Liquid Consistency and IDDSI 0 - Thin Liquids / All Liquids Compensatory swallowing techniques recommended: No straw, Eat slowly-control rate, Small bites, Small sips and Seated upright with all PO intake Level of supervision at meals recommended: Assistance with set-up and Distant supervision Therapy Recommendations: Speech therapy services recommended Treatment plan discussed with: Patient and Family Patient/Caregiver Training: Completed with patient, Therapy goals and treatment plan, Swallow strategies and Completed with caregiver (comment) (mother and sister) Problem List:: Cognitive Communication Disorder, Dysarthria, Pharyngeal Dysphagia and Oral Dysphagia OIL GAS AND PIPE TESTER to Provide the Following Dysphagia Services:: Diet modification as needed, Ongoing patient/caregiver training, Train in compensatory swallowing strategies and Therapeutic feeding trials OIL GAS AND PIPE TESTER to Provide the Following Cognitive, Language, Speech Services:: Ongoing patient/caregiver training, Basic cognitive communication skills training/strategies, Functional communication skills training/strategies and Articulatory precision training/strategies Frequency:: 45-90 minutes 5 out of 7 days Duration (# of Days): 28 Duration Expiration Date: 11/25/2022 Therapist that Will Oversee Plan of Care: Lee Ann Ramirez MS, [facility]-OIL GAS AND PIPE TESTER Pain Evaluation and Follow-up Response to Therapy Interventions: Other (comment) (No change) (10/29/221445) Pain Reassessment: 8 (10/29/221445) Nursing notified of patient's pain assessment: Other (comment) (RN aware of pain; medication given earlier.) (10/29/22 144) Therapy Minutes Comm Evaluation (ST) Time In : 1358 Time Out: 1430 Breaks/Pauses (Min): 0 mins Time calculation (min): 32 min CBSE Evaluation (ST) Time In : 1430 Time Out: 1446 Breaks/Pauses (Min): 0 mins Time calculation (min): 16 min Missed Minutes : [address] 10/29/2022 * Plan of Care - Luke Elizalde RD - 10/29/2022 1:39 PM CDT Problem: Inadequate Oral Intake Description: Oral food/beverage intake that is less than established reference standards or recommendations based on physiological needs. Related to: Decreased ability to consume sufficient energy, e.g., increased nutrition needs due to prolonged catabolic illness As evidenced by: estimated protein needs of 90-95 g/day. Goal: Improve Nutritional Status Outcome: Progressing Flowsheets (Taken 10/29/2022 1331) Meals and Snacks: (soft and bite sized (6) diet) General healthful diet Medical Food Supplement Therapy: (vanilla Ensure high protein TID) Commercial beverage/Oral nutrition supplement * PT Initial Evaluation - Irlanda Sher, PT - 10/29/2022 1:00 PM CDT Physical Therapy Evaluation Patient Name: Esperanza Chaparro Patient Birthdate: 1955 Pain Assessment Pain Context: Therapy Assessment Prior to Treatment (10/29/22 1300) Pain Score: 8 (10/29/22 1300) Pain Severity - NRS (Calculated): Severe (10/29/22 1300) Pain Location: Shoulder, Groin, Back (left) (10/29/22 1300) Pain Orientation: Left (10/29/22 1300) Pain Descriptors: Burning, Aching (10/29/22 1300) Pain Onset: Ongoing (10/29/22 1300) Pain Frequency: Constant/continuous (10/29/22 1300) Pre-therapy pain intervention required: Patient expressed pain is tolerable/able to proceed, Nurse notified, Nursing medicated patient - see MAR (10/29/22 1300) Pain Interventions Non-Pharmacologic Pain Interventions: Exercise/Activity, Position/Reposition (10/29/22 1355) Vital Signs Pulse: 54 (10/29/22 1350) BP: 103/63 (supine in bed with HOB slightly elevated) (10/29/22 1350) MAP (mmHg): 76.33 (10/29/22 1350) BP Location: Left arm (10/29/22 1350) BP Method: Automatic (10/29/22 1350) Patient Position: Lying (10/29/22 1350) Home Living Type of Home: House (10/29/22 131) # steps into the home: 4 (10/29/221318) Home Layout: One level (10/29/221318) DME Currently Owned: Rollator, Single point cane (10/29/221318) Home Evaluation Required?: No (10/29/221318) Prior Function Level of [place]: Independent with ambulation using an assistive device; Independent with ADLsand function transfers (10/29/221318 : Irlanda Sher, PT) Lives With: Family (lives with sister Edna) (10/29/221318 : Irlanda Sher, PT) 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 Also reported pain in left groin area, low back, headache. RN aware and had just provided pain meds. Pt voiced ok to continue. Impaired Posture: Rounded Shoulders Is Edema Present: No Light Touch: Severe deficits in the LLE Sensation Comments:: Unable to report any sensation to light touch in left leg LLE Proprioception: Diminished LLE Proprioception Comments: Appears impaired in left leg. Current Vision: Wears glasses all the time RUE Range of Motion: Within Normal Limits (assisted to over 90degrees shoulder flexion) RUE Strength: Within Functional Limits LUE Range of Motion: Impaired - see OT Initial Evaluation LUE Strength: Diminished - see OT Initial Evaluation RLE Assesment: Within Functional Limits LLE Assessment: Exceptions to WFL L Hip Flexion: 1/5 L Hip Extension: 1/5 L Hip ABduction: 1/5 L Hip ADduction: 1/5 L Knee Flexion: 0/5 L Knee Extension: 0/5 L Ankle Dorsiflexion: 0/5 Tone LLE: Other (Comment) (min increased extensor tone noted) Safety Devices Narrative: Unable to get pt up to chair this date. Will recommend use of tilt in space w/c for adequate positioning/support, safety. Skin Issues Narrative: No skin issues noted upon assessment. Recommend tilt in space w/c when upright for position changes and support. Pt has eggcrate heel protectors for use in bed, applied to pt in bed and left lower leg floated on pillow. Patient's and/or Caregiver's Goals: Goals (in their own words): Initial goal: to get pain medicine . Discussed goals with pt to improve overall tolerance, sitting, progress to stance to improve transfers. Pt mom and sister present andstated pt needs to be able to stand/walk for transition back home. Voiced understanding of rehab setting and goals to improve sitting, balance, stance tolerance. Goals Generated By:: Patient unable to generate a response with cues VITALS: pt vitals assessed during session with position changes. Slight hypotension noted in sitting for short period of time. 100's/60's in supine and drop to 98/53 in sitting. Return to low 100's/60's with return to supine BALANCE: sitting at edge of bed: total assist of two to transition to sitting at EOB. Strong push left with initial sit. Max to maintain. Posture: rounded, cues for upright head position and maintains grossly 30 seconds. ? Left inattention noted. With cues attempts wt shift right to achieve midlinebut max to maintain. BED MOBILITY: Sit to/from supine with max/total assist of two for trunk and LE support. Pt with strong push left with initial sit Rolling with to left with use of rail and max assist to complete movement. Painful left shoulder. Total assist to roll right for left side support and complete motion. TRANSFERS Sit to/from stand: not safe to attempt this date due to low level and hypotension this am Stand pivot with not safe to attempt this date due to safety. Recommended use of cee for transfers bed to/from tilt in space w/c as medically able. Car transfer not safe to attempt GAIT Unable to attempt stance this date due to level of assist required/safety, balance and hypotension. Unsafe to attempt ambulation 10, 50',150' Ambulates 10' on compliant surfaces: not safe to attempt Unsafe to retrieve object from floor STAIRS Ascends/descends curb: not safe to attempt Not safe to attempt 1, 4, 12 steps WHEELCHAIR MOBILITY Not able to get up to w/c this date due to low tolerance and hypotension. OUTCOME MEASURES: AGITATED BEHAVIOR SCALE 18 POSTURAL ASSESSMENT OF STROKE Mobility Assessment: Car Transfer Reason if not Attempted: Safety concerns Car Transfer - CARE Score: 88 Walk 10 Feet Reason if not Attempted: Safety concerns Walk 10 Feet - CARE Score: 88 Walk 50 Feet with Two Turns Reason if not Attempted: Safety concerns Walk 50 Feet with Two Turns - CARE Score: 88 Walk 150 Feet Reason if not Attempted: Safety concerns Walk 150 Feet - CARE Score: 88 Walking 10 Feet on Uneven Surfaces Reason if not Attempted: Safety concerns Walking 10 Feet on Uneven Surfaces - CARE Score: 88 1 Step (Curb) Reason if not Attempted: Safety concerns 1 Step (Curb) - CARE Score: 88 4 Steps Reason if not Attempted: Safety concerns 4 Steps - CARE Score: 88 12 Steps Reason if not Attempted: Safety concerns 12 Steps - CARE Score: 88 Picking Up Object Reason if not Attempted: Safety concerns Picking Up Object - CARE Score: 88 Wheel 50 Feet with Two Turns Reason if not Attempted: Safety concerns Wheel 50 Feet with Two Turns - CARE Score: 88 Type of Wheelchair/Scooter: Manual Wheel 150 Feet Reason if not Attempted: Safety concerns Wheel 150 Feet - CARE Score: 88 Type of Wheelchair/Scooter: Manual CARE Score Mg: 6: Independent. Walnut provides no assistance with tasks. A device may or may not have been used. 5: Set-up or clean-up assistance. Walnut sets up or cleans up, but does not assist with tasks. Walnut may have assisted prior to or following the activity. 4: Supervision or touching assistance. Walnut provides verbal cues or touching/steadying or contactguard assistance. Assistance may be provided throughout the activity or intermittently. 3: Partial/moderate assistance. Walnut does less than half the effort. Walnut lifts, holds, or supports trunk or limbs, but provides less than half the effort. 2: Substantial/maximal assistance. Walnut does more than half the effort. Walnut lifts or holds trunk or limbs, and provides more than half the effort. 1: Dependent. Walnut does all of the effort, or the assistance of two or more helpers is required for the patient to complete the activity. -: Inconsistent or incomplete documentation Activity not attempted values: 7: Patient refused 9: Not applicable - Not attempted and the patient did not perform this activity prior to the current illness, exacerbation, or injury. 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: Status on Admission Goal Car Transfer - CARE Score: 88 (10/29/221746) Walk 10 Feet - CARE Score: 88 (10/29/221746) Walk 10 Feet LTG: Dependent (pt will ambulate 10ft with hemiaide and mod/max of two) (10/29/221747) Walk 50 Feet with Two Turns - CARE Score: 88 (10/29/221746) Walk 150 Feet - CARE Score: 88 (10/29/221746) Walking 10 Feet on Uneven Surfaces - CARE Score: 88 (10/29/221746) 1 Step (Curb) - CARE Score: 88 (10/29/221746) 4 Steps - CARE Score: 88 (10/29/221746) 12 Steps - CARE Score: 88 (10/29/221746) Picking Up Object - CARE Score: 88 (10/29/221746) Wheel 50 Feet with Two Turns - CARE Score: 88 (10/29/221746) Wheel 50 Feet with Two Turns LTG: Partial/moderate assistance (pt propel w/c 60ft with right UE/LE and mod assist for guidance.) (10/29/221747) Wheel 150 Feet - CARE Score: 88 (10/29/221746) Additional Status & Goals: N/A PT Other Residential Goals Flowsheet Row Most Recent Value Other PT Residential Goals Other Goals - Offset Lithographic 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 Residential 1, Residential 2, Residential 3, Residential 4 Filed on: 10/29/20221748 Other Residential Goal 1 w/c to/from level surface with transfer board and mod assist Filed on: 10/29/20221748 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 Lithographic 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 Goal 1 Status Established Filed on: 10/29/20221748 Other Residential Goal 2 sit to stand to hemiaide and mod assist of two Filed on: 10/29/20221748 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 Lithographic 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 Goal 2 Status Established Filed on: 10/29/20221748 Other Residential Goal 3 tolerate upright position in regular w/c vs tilt in space w/c when out of bed Filed on: 10/29/20221748 Other Residential Goal 3 Status Established Filed on: 10/29/20221748 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 Lithographic 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 Goal 4 sit to/from supine with mod assist. Filed on: 10/29/20221748 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 Lithographic 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 Goal 4 Status Established Filed on: 10/29/20221748 PT Short Term Goal 1: Details: Sit to/from supine with max assist Expected Achievement Date: 11/05/2022 PT Short Term Goal 2: Details: W/c to/from level surface with use of transfer board and max assist Expected Achievement Date: 11/05/2022 PT Short Term Goal 3: Details: Sit to cable tv installer parallel bars with max assist. Expected Achievement Date: 11/05/2022 Status: Established PT Short Term Goal 4: Details: Pt ambulate 5ft in parallel bars with mod/max assist of two. Expected Achievement Date: 11/05/2022 Goal Status: Established Evaluation Summary: Mr. Chaparro presents to rehab s/p right ICA Occlusion. Pt with history of multipleCVA's with ? In same area but presents with new dense left hemiparesis vs prior deficits. Acute course: to [place] hospital due to throat pain, found with peritonsillar abscess, s/p drainage and antibiotic. While at [facility], felt pt with left weakness and questionable CVA so transferred to acute hospital. Tierney sanchez in ICU: tachypnea, several attempts to intubate. Right ischemic infarct. Other PMH: multiple CVA's, HTN, MA, CAD-Stents, DM, hyperlipedemia, positive tobacco, COPD. Mr. Chaparro was reportedly independent with mobility in the home with use of a rollator. Mr. Chaparro currently presents with dense hemiparesis on left side, requiring total assist for bed mobility, sitting. Unable to attempt stance this date due to hyptension. He presents with good potential to benefit from intensive therapy to maximize functional gains. Problem List: Decreased endurance, Decreased mobility, Decreased postural alignment in sitting/standing, Decreased range of motion, Decreased safety awareness, Decreased strength, Decreased toleranceto handling, Hemisensory Deficits, Impaired ambulation ability, Impaired balance, Impaired bed mobility, Impaired elevation ability, Impaired Neuromm Control, Impaired Neuromm Strength, Impaired sensation, Impaired tone, Impaired transfer ability, Impaired wheelchair management and Pain PT to Provide the Following Services: Balance/proprioceptive training, Body Weight Support System, Education - patient/family, Elevation training, Fall prevention, Gait training, Neuromuscular re-education, Sensory integration, Therapeutic activities and Wheelchair safety and mobility training Frequency of PT: 45-90 minutes 5 out of 7 days Duration (# of Days): 30 Duration Expiration Date: 11/18/2022 Pain Evaluation and Follow-up Pain Reassessment: 8 (10/29/22 1355) Nursing notified of patient's pain assessment: Primary Nurse (10/29/22 1355) Therapy Minutes Time In : 1300 Time Out: 1355 Time calculation (min): 55 min IRLANDA SHER, PT 10/29/2022 * Plan of Care - Keya Goodrich RN - 10/29/2022 12:59 PM CDT Problem: Infection Goal: Absence of infection and prevention of transmission during hospitalization Outcome: Progressing Flowsheets (Taken 10/29/2022 1258) Absence of infection and prevention of transmission during hospitalization: Assess and monitor for signs and symptoms of infection and vital signs Monitor lab/diagnostic results Administer medications as ordered Problem: Knowledge Deficit Goal: Patient and/or family demonstrate readiness to learn Outcome: Progressing Goal: Patient and/or family verbalizes understanding of education, and/or performs desired skill Outcome: Progressing Problem: Discharge Planning Goal: Discharge to home or other facility with appropriate resources Outcome: Progressing Goal: client services assistant will develop a plan to decrease their burden and enhance comfort in role Outcome: Progressing Problem: Delirium Goal: Prevent and Manage Delirium Outcome: Progressing Problem: Fall Safety: [place] Precautions Goal: Free from fall injury Outcome: Progressing Problem: Fall Huddle Goal: Free from Fall Injury Outcome: Progressing Problem: Fall Prevention: Fatigue Bundle Goal: Patient will be free from Fall Injury Outcome: Progressing Problem: Fall Safety: [place] Precautions Goal: Free from fall injury Outcome: Progressing Problem: Fall Huddle Goal: Free from Fall Injury Outcome: Progressing Problem: Pain Goal: Patient's Pain/Discomfort is Manageable Outcome: Progressing Problem: Knowledge Deficit Goal: Patient/family/caregiver demonstrates understanding of disease process, treatment plan, medications, and discharge instructions Outcome: Progressing Problem: Potential for Compromised Skin Integrity Goal: Skin integrity is maintained or improved Outcome: Progressing Goal: Nutritional status is improving Outcome: Progressing Problem: Urinary Incontinence Goal: Perineal skin integrity is maintained or improved Outcome: Progressing Problem: Bowel Incontinence Goal: Perineal Skin Integrity is Maintained or Improved Outcome: Progressing * Wound Progress Note - Tala Saez RN - 10/29/2022 11:12 AM CDT Images from the original note were not included. Wound Progress Note Reason for wound Consult: Admission Patient is awake, alert, and oriented x3-4, sleepy and groggy this morning with low blood pressure,but responds to stimulus and gives appropriate answers. Pt is here s/p CVA with DM, blood sugar 169-188 range. Dependent for bed mobility and out of bed mobility. Pt has history of pilonidal cyst that chronically re-opens to coccyx, and complains of burning skin to perineum, which is reddened. Pt is incontinent at this time of bowel and bladder. Esperanza Chaparro is a 67 y.o. male with the following Problems. Patient Active Problem List Diagnosis Cerebrovascular accident Chronic obstructive pulmonary disease Coronary arteriosclerosis Primary hypertension Dysphagia Past Medical History: Past Medical History: Diagnosis Date Cancer Heart disease Stroke Past Surgical History: Past Surgical History: Procedure Laterality Date CARDIAC SURGERY COLON SURGERY HERNIA REPAIR Allergies: Hydralazine, Metformin, Pioglitazone, Lisinopril, and Simvastatin Sean Score: Sean Scale Score: 16 Wound/Ulcer Assessment: Wound/Other Cyst/Abscess Coccyx Medial (Active) Date First Assessed/Time First Assessed: 10/29/22 0040 Wound Type: (c) Cyst/Abscess Anatomical Site: Coccyx Wound Location Orientation: Medial Wound Description (Comments): 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 Assessments 10/29/2022 10:59 AM Wound Image Wound Length (cm) 1 cm Wound Width (cm) 0.3 cm Wound Depth (cm) 0.2 Calculated Wound Size (cm^2) 0.3 cm^2 Calculated Wound Size (cm^3) 0.06 cm^3 Change in Wound Size % 0 Extent of Tissue Loss Partial thickness tissue loss Undermining None present Granulation Tissue No granulation tissue present Epithelialization 75% to <100% wound covered and/or epithelial tissue extends >0.5 cm into wound bed Necrotic Tissue Type None visible Necrotic Tissue Amount None visible Other Wound Bed Characteristics Dermis/Boise Tissue Wound Edges Distinct, outline clearly visible, attached and even with wound base Periwound Skin Color Bright red and/or blanches to touch Periwound Skin Edema No swelling or edema Periwound Skin Induration None present Exudate Type Serous: thin, water, clear Exudate Amount Scant, wound moist but no observable exudate Closure None Odor None Wound Management Cleansed;Open to air Active Orders Date Order Authorizing Provider 10/29/22 0704 Support Surface Marion Perry MD Wound/Other MASD Perineum (Active) Date First Assessed/Time First Assessed: 10/29/22 1051 Pre-Existing Wound: Yes Wound Type: MASD Anatomical Site: Perineum Assessments 10/29/2022 10:59 AM Undermining None present Granulation Tissue No granulation tissue present Epithelialization 100% wound covered, surface intact Necrotic Tissue Type None visible Necrotic Tissue Amount None visible Other Wound Bed Characteristics Intact Skin Wound Edges Indistinct, diffuse, none clearly visible Periwound Skin Color Bright red and/or blanches to touch Periwound Skin Edema No swelling or edema Periwound Skin Induration None present Exudate Type None Exudate Amount None, dry wound Closure None Odor None Wound Management Zinc based barrier Active Orders Date Order Authorizing Provider 10/29/22 1107 Apply zinc/menthol ointment to skin BID and PRN soiling/saturation Carolina Garibay MD Recommendations: Turn q2hrs while in bed JOCY-AP mattress Prevalon boots while in bed Pressure relief wheelchair cushion Reposition in chair with hourly rounds. Calmoseptine BID and PRN to buttocks for incontinence. Signature: TALA SAEZ RN Date: 10/29/2022 Time: 11:12 AM CDT * OT Initial Evaluation - Luke Robertson OT - 10/29/2022 9:00 AM CDT Occupational Therapy Evaluation Patient Name: Esperanza Chaparro Patient Birthdate: 1955 Pain Assessment Pain Context: Therapy Assessment Prior to Treatment (10/29/22903) Pain Assessment: NRS 0-10 (10/29/22903) Pain Score: 10 (10/29/22903) Pain Severity - NRS (Calculated): Severe (10/29/22903) Pain Location: Shoulder, Hip, Buttocks (it may be hemorrhoids) (10/29/22903) Pain Orientation: Left (L shoulder, L hip) (10/29/22903) Pain Interventions Education Provided: Patient (10/29/22 1020) Non-Pharmacologic Pain Interventions: Distractions, Exercise/Activity, Position/Reposition (10/29/22 1020) Vital Signs Pulse: (!) 48 (10/29/22 1018) BP: 101/59 (10/29/22 1018) MAP (mmHg): 73 (10/29/22 1018) BP Location: Right arm (10/29/22 1018) BP Method: Automatic (10/29/22 1018) Patient Position: Lying (with head of bed elevated) (10/29/22 1018) SpO2: 92 % (10/29/22 1018) Home Living Type of Home: House (10/29/22904) # steps into the home: 4 (10/29/22904) Home Layout: One level (10/29/22904) Bathroom Shower/Tub: Walk-in shower (10/29/22904) Bathroom Equipment: Shower chair with back (10/29/22904) Bathroom Accessibility: Walk-in Shower (10/29/22904) DME Currently Owned: Single point cane, Rolling walker (10/29/22904) Prior Function Level of [place]: Independent with ambulation using an assistive device; Independent with ADLsand function transfers (10/29/22 1319 : Irlanda Sher, PT) Lives With: Family (lives with sister) (10/29/22 09 : Luke Robertson, OT) 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 Current Work Status: Retired Prior Functional Status: ADL Required Assistance: Independent DME Currently Owned: Shower seat, Rolling walker and Single point cane Previously Used Home Health Aide: No Drove Vehicle Prior to Admission: Yes Required assistance for mobility?: No SIGNIFICANT HABITS AND ROUTINES: Significant Habits and Routines: Roles: Brother Interests: Other (comment) (watching television) Previous Living Status: Lives with others (lives with sister in one story home with 4 VENK[address]) ADL Assessment:: Eating Assistance Needed: Supervision Physical Assistance Level: No physical assistance Eating - CARE Score: 4 Oral Hygiene Assistance Needed: Physical assistance Physical Assistance Level: 25% or less Oral Hygiene - CARE Score: 3 Toileting Hygiene Assistance Needed: Physical assistance Physical Assistance Level: Total assistance Toileting Hygiene - CARE Score: 1 Shower/Bathe Self Assistance Needed: Physical assistance Physical Assistance Level: Total assistance Shower/Bathe Self - CARE Score: 1 Upper Body Dressing Assistance Needed: Physical assistance Physical Assistance Level: Total assistance Upper Body Dressing - CARE Score: 1 Lower Body Dressing Assistance Needed: Physical assistance Physical Assistance Level: Total assistance Lower Body Dressing - CARE Score: 1 Putting On/Taking Off Footwear Assistance Needed: Physical assistance Physical Assistance Level: Total assistance Putting On/Taking Off Footwear - CARE Score: 1 Roll Left and Right Assistance Needed: Physical assistance Physical Assistance Level: Total assistance Roll Left and Right - CARE Score: 1 Sit to Lying Assistance Needed: Physical assistance Physical Assistance Level: Total assistance Sit to Lying - CARE Score: 1 Lying to Sitting on Side of Bed Assistance Needed: Physical assistance Physical Assistance Level: Total assistance Lying to Sitting on Side of Bed - CARE Score: 1 Sit to Stand Reason if not Attempted: Medical concerns Sit to Stand - CARE Score: 88 Chair/Lzm-js-Wxgcp Transfer Reason if not Attempted: Medical concerns Chair/Iem-xb-Spypw Transfer - CARE Score: 88 Toilet Transfer Reason if not Attempted: Medical concerns Toilet Transfer - CARE Score: 88 FUNCTIONAL ASSESSMENTS - IADLS: Kitchen Mobility: Meal Prep: PERFORMANCE SKILLS ASSESSMENT: Performance Skills Assessment: Behavioral/Affective Observations: Goal directed (decreased alertness at times but easily arousable) Cognitive Skills: Able to follow 1 step commands, Impaired probem solving, Impaired memory, Low arousal, Decreased orientation and Oriented to personal circumstance Functional Endurance: Functional Endurance: Impaired MUSCULOSKELETAL STATUS: 9 Hole Peg Right: TBA 9 Hole Peg Left: Not able--no AROM noted in L UE Right Eye Hand Coordination: Intact Left Eye Hand Coordination: Impaired Hand Dominance: Right Right Gross Grasp: Functional Right Grasp Release: Functional Left Gross Grasp: Impaired Left Grasp Release: Impaired Coordination: Impaired (no AROM noted in L UE) Right Yacht Rigger Strength: TBA Left Yacht Rigger Strength: Unable--no AROM noted in L UE RUE Assessment-ROM and MMT: Within Functional Limits (strength TBA (appears to be at least 3+/5)--AROM WFL) LUE Assessment-ROM and MMT: 0/5--No AROM noted in L UE. Pt reports pain in shoulder. PROM limited to about 90 degrees shoulder flexion; distal PROM is WFL. Right Upper Extremity: WNL Left Upper Extremity: flaccid. Tremors: No Tremors No Visual/Perceptual Skills: Visual/Perceptual Skills: Vision corrected with lenses Perform In-Depth Visual Assessment?: No (TBA--not tested b/c of time constraints) Weight Shifting Narrative: Dependent for rolling to the right; mod assist for rolling to the left. Pressure injury on coccyx. Pt would benefit from low air loss mattress. Patient's and/or Caregiver's Goals: Communication Goals (in their own words): I need to do some rehab. I hope to get strong enough to go back to my sister's house. My sister can help me with getting dressed and getting to the bathroom if I need help. Goals Generated By:: Patient generated response with cues CARE Score Mg: 6: Independent. [place] provides no assistance with tasks. A device may or may not have been used. 5: Set-up or clean-up assistance. [place] sets up or cleans up, but does not assist with tasks. [place] may have assisted prior to or following the activity. 4: Supervision or touching assistance. [place] provides verbal cues or touching/steadying or contactguard assistance. Assistance may be provided throughout the activity or intermittently. 3: Partial/moderate assistance. [place] does less than half the effort. [place] lifts, holds, or supports trunk or limbs, but provides less than half the effort. 2: Substantial/maximal assistance. [place] does more than half the effort. [place] lifts or holds trunk or limbs, and provides more than half the effort. 1: Dependent. [place] does all of the effort, or the assistance of two or more helpers is required for the patient to complete the activity. -: Inconsistent or incomplete documentation Activity not attempted values: 7: Patient refused 9: Not applicable - Not attempted and the patient did not perform this activity prior to the current illness, exacerbation, or injury. 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: Status on Admission Goal Eating - CARE Score: 4 (10/29/22 1021) Oral Hygiene - CARE Score: 3 (10/29/22 1021) Toileting Hygiene - CARE Score: 1 (10/29/22 1021) Toileting Hygiene LTG: Partial/moderate assistance (10/29/22 1248) Shower/Bathe Self - CARE Score: 1 (10/29/22 1021) Shower/Bathe Self LTG: Partial/moderate assistance (10/29/22 1248) Upper Body Dressing - CARE Score: 1 (10/29/22 1021) Upper Body Dressing LTG: Partial/moderate assistance (10/29/22 1248) Lower Body Dressing - CARE Score: 1 (10/29/22 1021) Lower Body Dressing LTG: Partial/moderate assistance (10/29/22 1248) Putting On/Taking Off Footwear - CARE Score: 1 (10/29/22 1021) Putting On/Taking Off Footwear LTG: Partial/moderate assistance (10/29/22 1248) Roll Left and Right - CARE Score: 1 (10/29/22 1021) Sit to Lying - CARE Score: 1 (10/29/22 1021) Lying to Sitting on Side of Bed - CARE Score: 1 (10/29/22 1021) Sit to Stand - CARE Score: 88 (10/29/22 1021) Chair/Dmn-yn-Otxwi Transfer - CARE Score: 88 (10/29/22 1021) Chair/Mih-vq-Lsozn Transfer LTG: Partial/moderate assistance (10/29/22 1248) Toilet Transfer - CARE Score: 88 (10/29/22 1021) Toilet Transfer LTG: Partial/moderate assistance (10/29/22 1248) Additional Status & Goals: N/A OT Short Term Goal 1: Focus: Toileting Hygiene Level of Assistance to Meet Short Term Goal: Physical assistance 50%-74% Expected Achievement Date: 11/05/2022 Goal Status: Established OT Short Term Goal 2: Focus: Shower/Bathe Level of Assistance to Meet Short Term Goal: Physical assistance 50%-74% Expected Achievement Date: 11/05/2022 Goal Status: Established OT Short Term Goal 3: Focus: Upper Body Dressing Level of Assistance to Meet Short Term Goal: Physical assistance 50%-74% Expected Achievement Date: 11/05/2022 Goal Status: Established OT Short Term Goal 4: Focus: Lower Body Dressing Level of Assistance to Meet Short Term Goal: Physical assistance 50%-74% Expected Achievement Date: 11/05/2022 Goal Status: Established OT Short Term Goal 5: Focus: Toilet Transfer Level of Assistance to Meet Short Term Goal: Physical assistance 50%-74% Expected Achievement Date: 11/05/2022 Goal Status: Established Evaluation Summary:: Mr Chaparro is a 67 year old man with diagnosis of CVA. He has PMH of CVA, COPD, HTN, DM, MA, and peritonsillar abscess. Precautions: fall, full code, soft and bite sized food, thin liquids Mr Chaparro's current functional status is as follows: EATING: supervision, he uses R UE only to feed himself ORAL HYGIENE: min assist; pt uses R UE only; min a for thoroughness, cues for sequencing TOILETING: total assist, assist for all aspects BATHING: total assist, bed level, two person assist needed for washing LB, pt is able to assist with washing his face but needs some cues for thoroughness UB DRESSING: dependent--assist needed for all aspects LB DRESSING: dependent--assist needed for all aspects PUTTING ON/TAKING OFF FOOTWEAR: dependent--assist needed for all aspects ROLL LEFT AND RIGHT: dependent--two person assist for rolling to the right; mod assist for rolling to the left SIT TO LYING: dependent LYING TO SITTING: dependent SIT TO STAND: NT b/c of medical concerns--low BP and heart rate at time of evaluation BED TO CHAIR TRANSFER: NT b/c of medical concerns--low BP and heart rate at time of evaluation TOILET TRANSFER: NT b/c of safety and medical concerns Problem List:: Mobility, Decreased functional endurance, Decreased functional status in ADL's, Impaired balance, Decreased transfer status, Decreased upper extremity strength, Impaired muscle tone, Decreased upper extremity range of motion, Impaired gradation of grasp, Impaired hand eye coordination, Impaired visual and/or perceptual skills and Impaired cognitive skills OT to Provide the Following Services: ADL and Transfer Training, Neuromusculature Re-education, UE Therex, Cognitive Retraining, Visual/Perceptual Skills Training, Coordination Training, Balance Training, Functional Endurance Training, Home Safety and Modification Education, Positioning and Adaptive Equipment/DME Education Frequency:: 45-90 minutes 5 out of 7 days Duration (# of Days): 28 Duration Expiration Date: 11/26/2022 Pain Evaluation and Follow-up Pain Reassessment: 10 (buttocks, back, L shoulder and L hip) (10/29/22 1020) Nursing notified of patient's pain assessment: Primary Nurse (10/29/22 1020) Therapy Minutes Time In : 0900 Time Out: 1030 Time calculation (min): 90 min LUKE ROBERTSON OT 10/29/2022 * Plan of Care - Jessica Mccann RN - 10/28/2022 11:16 PM CDT Problem: Infection Goal: Absence of infection and prevention of transmission during hospitalization Outcome: Progressing Flowsheets (Taken 10/28/2022 2311) Absence of infection and prevention of transmission during hospitalization: Assess and monitor for signs and symptoms of infection and vital signs Administer medications as ordered Educate patient/family regarding signs and symptoms of infection Monitor lab/diagnostic results Educate patient/family on proper hand washing and infection prevention techniques Review infection history-place in appropriate transmission precautions Problem: Fall Safety: [place] Precautions Goal: Free from fall injury Outcome: Progressing Flowsheets (Taken 10/28/2022 2317) Free from fall injury: Perform fall risk assessment and identifiers in place (as applicable) Lighting appropriate Frequent rounding/monitoring Use of bed/chair alarm Put call light within reach and teach how to call for assistance, respond to call light immediately Offer frequent toileting Bed low, locked 2 side rails Fall/safety education for patient/family/SO MAR review Frequent re-orientation, orient the patient to the environment documented in this encounter Plan of Treatment Scheduled Referrals Name Type Priority Associated Diagnoses Orde r Schedule Consult to Home Care Outpatient Referral Routine Cerebrovascular accident Ordered: 11/03/2022 documented as of this encounter Procedures Procedure Name Priority Date/Time Associated Diagnosis Comments POCT GLUCOSE Routine 11/20/2022 4:58 PM CDT POCT GLUCOSE Routine 11/20/2022 6:22 AM CDT POCT GLUCOSE Routine 11/19/2022 4:07 PM CDT POCT GLUCOSE Routine 11/19/2022 6:04 AM CDT ALDOSTERONE Routine 11/19/2022 2:37 AM CDT CORTISOL A.M. Routine 11/19/2022 12:08 AM CDT RENIN ACTIVITY Routine 11/19/2022 12:08 AM CDT CBC Routine 11/19/2022 12:08 AM CDT LACTATE DEHYDROGENASE Add-On 11/19/2022 12:08 AM CDT BASIC METABOLIC PANEL Routine 11/19/2022 12:08 AM CDT POCT GLUCOSE Routine 11/18/2022 8:31 PM CDT US RETROPERITONEAL COMPLETE Routine 11/18/2022 4:38 PM CDT POCT GLUCOSE Routine 11/18/2022 4:32 PM CDT BASIC METABOLIC PANEL STAT 11/18/2022 2:29 PM CDT URINALYSIS MICROSCOPIC PANEL Routine 11/18/2022 2:14 PM CDT UREA NITROGEN, URINE Routine 11/18/2022 2:14 PM CDT MICROALBUMIN / CREATININE URINE RATIO Routine 11/18/2022 2:14 PM CDT SODIUM, URINE, RANDOM Routine 11/18/2022 2:14 PM CDT PROTEIN, URINE, RANDOM Routine 2:14 PM CDT POTASSIUM, URINE, RANDOM Routine 11/18/2022 2:14 PM CDT URINALYSIS WITH MICROSCOPIC Routine 11/18/2022 2:14 PM CDT POCT GLUCOSE Routine 11/18/2022 11:21 AM CDT POCT GLUCOSE Routine 11/18/2022 5:49 AM CDT BASIC METABOLIC PANEL Routine 11/18/2022 3:14 AM CDT POCT GLUCOSE Routine 11/17/2022 9:06 PM CDT POCT GLUCOSE Routine 11/17/2022 4:16 PM CDT POTASSIUM Routine 11/17/2022 12:46 PM CDT POCT GLUCOSE Routine 11/17/2022 6:21 AM CDT POCT GLUCOSE Routine 11/16/2022 4:25 PM CDT CBC Routine 11/16/2022 12:27 PM CDT POCT GLUCOSE Routine 11/16/2022 11:18 AM CDT POCT GLUCOSE Routine 11/16/2022 5:52 AM CDT BASIC METABOLIC PANEL Routine 11/16/2022 12:04 AM CDT POCT GLUCOSE Routine 11/15/2022 8:39 PM CDT POCT GLUCOSE Routine 11/15/2022 7:10 AM CDT POCT GLUCOSE Routine 11/15/2022 5:34 AM CDT POCT GLUCOSE Routine 11/14/2022 4:12 PM CDT POCT GLUCOSE Routine 11/14/2022 11:07 AM CDT POCT GLUCOSE Routine 11/14/2022 6:35 AM CDT POCT GLUCOSE Routine 11/13/2022 8:21 PM CDT POCT GLUCOSE Routine 11/13/2022 4:04 PM CDT POCT GLUCOSE Routine 11/13/2022 5:56 AM CDT POCT GLUCOSE Routine 11/12/2022 8:45 PM CDT POCT GLUCOSE Routine 11/12/2022 4:00 PM CDT POCT GLUCOSE Routine 11/12/2022 6:03 AM CDT BASIC METABOLIC PANEL Routine 11/12/2022 12:10 AM CDT POCT GLUCOSE Routine 11/11/2022 4:32 PM CDT POCT GLUCOSE Routine 11/11/2022 6:59 AM CDT POCT GLUCOSE Routine 11/10/2022 4:05 PM CDT POCT GLUCOSE Routine 11/10/2022 6:24 AM CDT POCT GLUCOSE Routine 11/09/2022 8:24 PM CDT POCT GLUCOSE Routine 11/09/2022 4:19 PM CDT POCT GLUCOSE Routine 11/09/2022 5:25 AM CDT BASIC METABOLIC PANEL Routine 11/09/2022 4:16 AM CDT CBC Routine 11/09/2022 4:16 AM CDT POCT GLUCOSE Routine 11/08/2022 4:08 PM CDT POCT GLUCOSE Routine 11/08/2022 6:18 AM CDT POCT GLUCOSE Routine 11/07/2022 4:13 PM CDT POCT GLUCOSE Routine 11/07/2022 6:25 AM CDT XR HIP 2-3 VW WITH PELVIS LEFT Routine 11/06/2022 5:20 PM CDT POCT GLUCOSE Routine 11/06/2022 4:14 PM CDT POCT GLUCOSE Routine 11/05/2022 4:00 PM CDT POCT GLUCOSE Routine 11/05/2022 6:21 AM CDT BASIC METABOLIC PANEL Routine 11/05/2022 2:49 AM CDT CBC Routine 11/05/2022 2:20 AM CDT POCT GLUCOSE Routine 11/04/2022 4:13 PM CDT POCT GLUCOSE Routine 11/04/2022 12:17 PM CDT POCT GLUCOSE Routine 11/04/2022 7:03 AM CDT POCT GLUCOSE Routine 11/03/2022 9:38 PM CDT POCT GLUCOSE Routine 11/03/2022 4:08 PM CDT POCT GLUCOSE Routine 11/03/2022 12:06 PM CDT POCT GLUCOSE Routine 11/03/2022 6:21 AM CDT POCT GLUCOSE Routine 11/02/2022 9:35 PM CDT POCT GLUCOSE Routine 11/02/2022 4:18 PM CDT POCT GLUCOSE Routine 11/02/2022 11:05 AM CDT POCT GLUCOSE Routine 11/02/2022 6:02 AM CDT CBC Routine 11/02/2022 12:22 AM CDT BASIC METABOLIC PANEL Routine 11/02/2022 12:22 AM CDT POCT GLUCOSE Routine 11/01/2022 9:20 PM CDT POCT GLUCOSE Routine 11/01/2022 4:46 PM CDT POCT GLUCOSE Routine 11/01/2022 11:51 AM CDT POCT GLUCOSE Routine 11/01/2022 6:11 AM CDT POCT GLUCOSE Routine 10/31/2022 4:44 PM CDT POCT GLUCOSE Routine 10/31/2022 12:21 PM CDT BASIC METABOLIC PANEL Routine 10/31/2022 6:28 AM CDT POCT GLUCOSE Routine 10/31/2022 6:26 AM CDT POCT GLUCOSE Routine 10/30/2022 4:56 PM CDT POCT GLUCOSE Routine 10/30/2022 11:42 AM CDT POCT GLUCOSE Routine 10/30/2022 6:32 AM CDT VITAMIN B12 Routine 10/30/2022 2:05 AM CDT VITAMIN D, 25-HYDROXY Routine 10/30/2022 2:05 AM CDT POCT GLUCOSE Routine 10/29/2022 8:35 PM CDT POCT GLUCOSE Routine 10/29/2022 4:03 PM CDT POCT GLUCOSE Routine 10/29/2022 11:06 AM CDT BASIC METABOLIC PANEL Routine 10/29/2022 5:32 AM CDT CBC Routine 10/29/2022 5:31 AM CDT POCT GLUCOSE Routine 10/29/2022 5:29 AM CDT POCT GLUCOSE Routine 10/28/2022 9:37 PM CDT documented in this encounter Results * POCT glucose (11/20/2022 4:58 PM CDT) [facility] Glucose Blood, POC 134 70 - 120 mg/dL [facility] Blood 11/20/2022 4:58 PM CDT 11/20/2022 4:58 PM CDT Soto Meng MD LAB POINT OF CARE TEST ORDERABLE S Final Result SM [facility] * POCT glucose (11/20/2022 6:22 AM CDT) Glucose Blood, POC 112 70 - 120 mg/dL [facility] Blood 11/20/2022 6:22 AM CDT 11/20/2022 6:22 AM CDT Soto Meng MD LAB POINT OF CARE TEST ORDERABLE S Final Result SM [facility] * POCT glucose (11/19/2022 4:07 PM CDT) Glucose Blood, POC 175 70 - 120 mg/dL [facility] Blood 11/19/2022 4:07 PM CDT 11/19/2022 4:07 PM CDT Soto Meng MD LAB POINT OF CARE TEST ORDERABLE S Final Result SM [facility] * POCT glucose (11/19/2022 6:04 AM CDT) Glucose Blood, POC 116 70 - 120 mg/dL [facility] Blood 11/19/2022 6:04 AM CDT 11/19/2022 6:04 AM CDT Soto Meng MD LAB POINT OF CARE TEST ORDERABLE S Final Result SM [facility] * ALDOSTERONE (11/19/2022 2:37 AM CDT) Aldosterone 2.2 0.0 - 30.0 ng/dL [facility] ([facility]) Blood (Blood, Venous) 11/19/2022 2:37 AM CDT 11/19/2022 Narrative [facility] ([facility]) - 11/23/2022 2:09 PM CDT Test(s) [id number] was developed and its performance characteristics determined by [facility]. It has not been cleared or approved by the Food and Drug Administration. Performed at: ??01 - [facility] ??[id number] Dinkey Skinner: Eriberto Laboy MD, Phone: ??[phone] [facility] Flori DO LAB BLOOD ORDERABLES Final Resu lt Performing Organization Address City/[facility]/ZIP Co de Phone Number [facility] ([facility]) [address] [place] [address] * LACTATE DEHYDROGENASE (11/19/2022 12:08 AM CDT) Pathologist [facility] U/L Blood 166 125 - 220 U/L [facility] Blood (Blood, Venous) 11/19/2022 12:08 AM CDT 11/19/2022 3:50 AM CDT [facility] DO LAB BLOOD ORDERABLES Final Resu lt Performing Organization Address City/[facility]/ZIP Co de Phone Number [facility] [address] [place] [address] * (ABNORMAL) BASIC METABOLIC PANEL (11/19/2022 12:08 AM CDT) Glucose mg/dL Blood 114(H) 70 - 105 mg/dL [facility] Sodium mmol/L Blood 140 136 - 145 mmol/L [facility] Potassium mmol/L Blood 4.8 3.5 - 5.1 mmol/L [facility] Chloride 105 98 - 107 mmol/L [facility] CO2 26 22 - 29 mmol/L [facility] Calcium mg/dL Blood 9.9 8.4 - 10.4 mg/dL [facility] Anion Gap Blood 9 6 - 16 mmol/L [facility] Bun mg/dL Blood 56(H) 7 - 26 mg/dL SM [facility] Creatinine 1.40(H) 0.72 - 1.25 mg/dL [facility] EGFRCR CKD-EPI 55(L) >=90 mL/min/1.7 3 m2 [facility] Blood (Blood, Venous) 11/19/2022 12:08 AM CDT 11/19/2022 3:50 AM CDT Marion Perry MD LAB BLOOD ORDERABLES Final Result Performing Organization Address City/[facility]/ZIP Co de Phone Number [facility] [address] [place] [phone] * (ABNORMAL) CBC (11/19/2022 12:08 AM CDT) WBC X(10)9/L Blood 8.8 4.4 - 10.7 x10E9/L [facility] Rbc X(10)12/L Blood 3.40(L) 3.80 - 5.40 x10E12/L [facility] HGB gm/dL Blood 10.3(L) 12.0 - 17.6 gm/dL [facility] HCT % Blood 32.0(L) 35.2 - 51.7 % [facility] MCV fL Blood 94.1 80.7 - 98.3 fl [facility] MCH pg Blood 30.3 26.7 - 34.0 pg [facility] MCHC gm/dL Blood 32.2 30.8 - 35.9 gm/dL [facility] Plt Ct X(10)9/L Blood 246 153 - 416 x10E9/L [facility] RDW-Cv % Blood 14.5 12.1 - 14.9 % [facility] MPV fL Blood 9.2(L) 9.4 - 12.9 fl [facility] Blood (Blood, Venous) 11/19/2022 12:08 AM CDT 11/19/2022 3:50 AM CDT Marion Perry MD LAB BLOOD ORDERABLES Final Result [facility] [address] [place] [address] * Cortisol A.M. (11/19/2022 12:08 AM CDT) Cortisol Am ug/dL Blood 5.0 4.3 - 22.4 ug/dL [facility] Blood (Blood, Venous) 11/19/2022 12:08 AM CDT 11/19/2022 3:50 AM CDT [facility] DO LAB BLOOD ORDERABLES Final Resu lt Performing Organization Address City/[facility]/ZIP Co de Phone Number [facility] [address] [place] [address] * Renin Activity (11/19/2022 12:08 AM CDT) Renin ng/mL/Hr Blood 5.125 0.167 - 5.380 ng/mL/hr [facility] ([facility]) Blood (Blood, Venous) 11/19/2022 12:08 AM CDT 11/19/2022 Narrative [facility] ([facility]) - 11/27/2022 10:11 AM CDT Test(s) [id number] Activity, Plasma was developed and its performance characteristics determined by [facility]. It has not been cleared or approved by the Food and Drug Administration. Performed at: ??01 - [address] ??[id number] Dinkey Skinner: Eriberto Laboy MD, Phone: ??[phone] [facility] Flori DO LAB BLOOD ORDERABLES Final Resu lt Performing Organization Address City/[facility]/ZIP Co de Phone Number [facility] ([facility]) [address] [place] [address] * POCT glucose (11/18/2022 8:31 PM CDT) Glucose Blood, POC 185 70 - 120 mg/dL [facility] Blood 11/18/2022 8:31 PM CDT 11/18/2022 8:31 PM CDT us Provider Not In System LAB POINT OF CARE TEST OR DERABLES Final Result SM [facility] * US RETROPERITONEAL COMPLETE (11/18/2022 4:38 PM CDT) Anatomical Region Laterality Modality Body Ultrasound Impressions 11/18/2022 5:07 PM CDT IMPRESSION: IMPRESSION: 1. ??Unremarkable kidneys and bladder. 2. ??Mildly enlarged spleen > Interpreting Provider: Keya Altman MD on 11/18/2022 5:07 PM Narrative 11/18/2022 5:07 PM CDT NARRATIVE: PROCEDURE: ??US RETROPERITONEAL COMPLETE DATE/TIME OF EXAM: ??11/18/2022 4:38 PM CLINICAL INFORMATION: None relevant/not provided if blank. Indication: N17.9: Acute kidney failure, unspecified (CMS/HCC) Additional History: Hyperkalemia, abdominal pain COMPARISON: None. TECHNIQUE: Real-time ultrasound of the kidneys and bladder with DICOM image capture performed by electronic technologist. FINDINGS: The right kidney measures 10.6 [...] cm which is mildly enlarged. Procedure Note System, Provider Not In - 11/18/2022 NARRATIVE: PROCEDURE: US RETROPERITONEAL COMPLETE DATE/TIME OF EXAM: 11/18/2022 4:38 PM CLINICAL INFORMATION: None relevant/not provided if blank. Indication: N17.9: Acute kidney failure, unspecified (CMS/HCC) Additional History: Hyperkalemia, abdominal pain COMPARISON: None. TECHNIQUE: Real-time ultrasound of the kidneys and bladder with DICOMimage capture performed by electronic technologist. FINDINGS: The right kidney measures 10.6 [...] 14.9 cm which is mildly enlarged. IMPRESSION: IMPRESSION: IMPRESSION: 1. Unremarkable kidneys and bladder. 2. Mildly enlarged spleen > Interpreting Provider: Keya Altman MD on 11/18/2022 5:07 PM Sacha Ruby DO [facility] US ORDERABLES Final Result * POCT glucose (11/18/2022 4:32 PM CDT) Glucose Blood, POC 146 70 - 120 mg/dL [facility] Blood 11/18/2022 4:32 PM CDT 11/18/2022 4:32 PM CDT Provider Not In System LAB POINT OF CARE TEST OR DERABLES Final Result [facility] * (ABNORMAL) BASIC METABOLIC PANEL (11/18/2022 2:29 PM CDT) Glucose mg/dL Blood 159(H) 70 - 105 mg/dL [facility] Sodium mmol/L Blood 139 136 - 145 mmol/L [facility] Potassium mmol/L Blood 5.3(H) 3.5 - 5.1 mmol/L [facility] Chloride 104 98 - 107 mmol/L [facility] CO2 19(L) 23 - 31 mmol/L [facility] Calcium mg/dL Blood 11.6(H) 8.4 - 10.4 mg/dL [facility] Anion Gap Blood 16 8 - 18 mmol/L [facility] Bun mg/dL Blood 59(H) 8.4 - 25.7 mg/dL [facility] Creatinine 1.61(H) 0.72 - 1.25 mg/dL [facility] EGFRCR CKD-EPI 47(L) >=90 mL/min/1.7 3 m2 [facility] Blood (Blood, Venous) 11/18/2022 2:29 PM CDT 11/18/2022 4:05 PM CDT Teresa Milner MD LAB BLOOD ORDERABLES Final Result Performing Organization Address [facility]/ZIP Co de Phone Number [facility] [address] [place] [address] * (ABNORMAL) Urinalysis microscopic panel (11/18/2022 2:14 PM CDT) RBC UA 11-20(A) 0 - 5 # /hpf [facility] WBC Clumps, Urine Few(A) None Seen /HPF [facility] WBC UA >100(A) 0 - 5 # /hpf [facility] Bacteria, Urine Trace(A) None Seen [facility] Squamous epithelial None Seen 0 - 5 /hpf [facility] Urine 11/18/2022 2:14 PM CDT 11/18/2022 3:[address] [facility] - 11/18/2022 4:01 PM CDT Sacha Ruby DO LAB URINE ORDERABLES Final Resu lt Performing Organization Address [facility] Co de Phone Number [facility] [address] [place] [phone] * (ABNORMAL) Urinalysis with microscopic (11/18/2022 2:14 PM CDT) Color, Urine Yellow Straw, Yellow [facility] Clarity, Urine Cloudy(A) Clear [facility] Glucose, Ur Negative Negative SM [facility] Bilirubin Urine Negative Negative SM [facility] Ketones, urine Negative Negative SM [facility] Specific gravity 1.010 1.005 - 1.030 [facility] RBC, UA Negative Negative SM [facility] pH, Urine 6.0 5.0 - 8.0 pH [facility] Protein, Ur Negative Negative SM [facility] Urobilinogen, Urine Negative Negative mg/dL [facility] NITRITE Negative Negative SM [facility] Urine Leukocyte Esterase 3+(A) Negative SM [facility] Urine Microscopy UA Urine microscopy to follow [facility] Urine 11/18/2022 2:14 PM CDT 11/18/2022 3:45 PM CDT Narrative [facility] - 11/18/2022 3:58 PM CDT Amees B Flori DO LAB URINE ORDERABLES Final Resu lt Performing Organization Address [facility] Co de Phone Number [facility] [address] [place] [phone] * POTASSIUM, URINE, RANDOM (11/18/2022 2:14 PM CDT) Potassium Urine mmol/L 37.2 mmol/L [facility] Urine 11/18/2022 2:14 PM CDT 11/18/2022 3:45 PM CDT [facility] Flori DO LAB URINE ORDERABLES Final Resu lt Performing Organization Address [facility] Co de Phone Number [facility] [address] [place] [phone] * PROTEIN, URINE, RANDOM (11/18/2022 2:14 PM CDT) Protein Urine Random mg/dL 7.3 <11.9 mg/dL [facility] Urine 11/18/2022 2:14 PM CDT 11/18/2022 3:45 PM CDT [facility] Flori DO LAB URINE ORDERABLES Final Resu lt Performing Organization Address [facility] Co de Phone Number [facility] [address] [place] [phone] * (ABNORMAL) MICROALBUMIN / CREATININE URINE RATIO (11/18/2022 2:14 PM CDT) Creatinine Urine mg/dL 35.49 mg/dL [facility] Microalbumin Urine mg/dL 1.9 mg/dL [facility] Microalbumin/Crea tinine Ratio Urine 53(H) <30 mg/g [facility] Urine 11/18/2022 2:14 PM CDT 11/18/2022 3:45 PM CDT us Ameesh B Flori DO LAB URINE ORDERABLES Final Resu lt Performing Organization Address [facility] Co de Phone Number [facility] [address] [place] [phone] * UREA NITROGEN, URINE (11/18/2022 2:14 PM CDT) Urea Nitrogen Urine mg/dL 488 mg/dL [facility] Urine 11/18/2022 2:14 PM CDT 11/18/2022 3:45 PM CDT us Ameesh B Flori DO LAB URINE ORDERABLES Final Resu lt Performing Organization Address [facility] Co de Phone Number [facility] [address] [place] [phone] * SODIUM, URINE, RANDOM (11/18/2022 2:14 PM CDT) Sodium Urine mmol/L 49 mmol/L [facility] Urine 11/18/2022 2:14 PM CDT 11/18/2022 3:45 PM CDT us Amees B Flori DO LAB URINE ORDERABLES Final Resu lt Performing Organization Address [facility] de Phone Number [facility] [address] [place] [phone] * POCT glucose (11/18/2022 11:21 AM CDT) Glucose Blood, POC 145 70 - 120 mg/dL [facility] Blood 11/18/2022 11:2 1 AM CDT 11/18/2022 11:21 AM CDT us Soto Meng MD LAB POINT OF CARE TEST ORDERABLE S Final Result Performing Organization Address City/[facility] Co de Phone Number [facility] * POCT glucose (11/18/2022 5:49 AM CDT) Glucose Blood, POC 111 70 - 120 mg/dL [facility] Blood 11/18/2022 5:49 AM CDT 11/18/2022 5:49 AM CDT Soto Meng MD LAB POINT OF CARE TEST ORDERABLE S Final Result [facility] * (ABNORMAL) BASIC METABOLIC PANEL (11/18/2022 3:14 AM CDT) Glucose mg/dL Blood 122(H) 70 - 105 mg/dL [facility] Sodium mmol/L Blood 136 136 - 145 mmol/L [facility] Potassium mmol/L Blood 5.5(H) 3.5 - 5.1 mmol/L [facility] Chloride 100 98 - 107 mmol/L [facility] CO2 26 23 - 31 mmol/L [facility] Calcium mg/dL Blood 9.9 8.4 - 10.4 mg/dL [facility] Anion Gap Blood 10 8 - 18 mmol/L [facility] Bun mg/dL Blood 63(H) 8.4 - 25.7 mg/dL [facility] Creatinine 1.70(H) 0.72 - 1.25 mg/dL [facility] EGFRCR CKD-EPI 44(L) >=90 mL/min/1.7 3 m2 [facility] Blood (Blood, Venous) 11/18/2022 3:14 AM CDT 11/18/2022 4:32 AM CDT us Teresa Milner MD LAB BLOOD ORDERABLES Final Result [facility] [address] [place] [address] * POCT glucose (11/17/2022 9:06 PM CDT) Glucose Blood, POC 143 70 - 120 mg/dL [facility] Blood 11/17/2022 9:06 PM CDT 11/17/2022 9:06 PM CDT us Provider Not In System LAB POINT OF CARE TEST OR DERABLES Final Result [facility] * POCT glucose (11/17/2022 4:16 PM CDT) Glucose Blood, POC 156 70 - 120 mg/dL [facility] Blood 11/17/2022 4:16 PM CDT 11/17/2022 4:16 PM CDT Soto Meng MD LAB POINT OF CARE TEST ORDERABLE S Final Result [facility] * (ABNORMAL) POTASSIUM (11/17/2022 12:46 PM CDT) Potassium mmol/L Blood 5.6(H) 3.5 - 5.1 mmol/L [facility] Blood (Blood, Venous) 11/17/2022 12:46 PM CDT 11/17/2022 12:57 PM CDT Teresa Milner MD LAB BLOOD ORDERABLES Final Result [facility] [address] [place] [address] * POCT glucose (11/17/2022 6:21 AM CDT) Glucose Blood, POC 139 70 - 120 mg/dL [facility] Blood 11/17/2022 6:21 AM CDT 11/17/2022 6:21 AM CDT Soto Meng MD LAB POINT OF CARE TEST ORDERABLE S Final Result [facility] * POCT glucose (11/16/2022 4:25 PM CDT) Glucose Blood, POC 180 70 - 120 mg/dL [facility] Blood 11/16/2022 4:25 PM CDT 11/16/2022 4:25 PM CDT Provider Not In System LAB POINT OF CARE TEST OR DERABLES Final Result [facility] * (ABNORMAL) CBC (11/16/2022 12:27 PM CDT) WBC X(10)9/L Blood 11.8(H) 4.4 - 10.7 x10E9/L [facility] Rbc X(10)12/L Blood 3.76(L) 3.80 - 5.40 x10E12/L [facility] HGB gm/dL Blood 11.1(L) 12.0 - 17.6 gm/dL [facility] HCT % Blood 35.5 35.2 - 51.7 % SM [facility] MCV fL Blood 94.4 80.7 - 98.3 fl [facility] MCH pg Blood 29.5 26.7 - 34.0 pg [facility] MCHC gm/dL Blood 31.3 30.8 - 35.9 gm/dL [facility] Plt Ct X(10)9/L Blood 278 153 - 416 x10E9/L [facility] RDW-Cv % Blood 14.5 12.1 - 14.9 % [facility] MPV fL Blood 8.8(L) 9.4 - 12.[address] [facility] Blood (Blood, Venous) 11/16/2022 12:27 PM CDT 11/16/2022 12:25 PM CDT Marion Perry MD LAB BLOOD ORDERABLES Final Result [facility] [address] [place] [address] * POCT glucose (11/16/2022 11:18 AM CDT) Glucose Blood, POC 180 70 - 120 mg/dL [facility] Blood 11/16/2022 11:1 8 AM CDT 11/16/2022 11:18 AM CDT Soto Meng MD LAB POINT OF CARE TEST ORDERABLE S Final Result [facility] * POCT glucose (11/16/2022 5:52 AM CDT) Glucose Blood, POC 143 70 - 120 mg/dL [facility] Blood 11/16/2022 5:52 AM CDT 11/16/2022 5:52 AM CDT Soto Meng MD LAB POINT OF CARE TEST ORDERABLE S Final Result Performing Organization Address City/[facility]/ZIP Co de Phone Number [facility] * (ABNORMAL) BASIC METABOLIC PANEL (11/16/2022 12:04 AM CDT) Glucose mg/dL Blood 151(H) 70 - 105 mg/dL [facility] Sodium mmol/L Blood 137 136 - 145 mmol/L [facility] Potassium mmol/L Blood 5.9(H) 3.5 - 5.1 mmol/L [facility] Chloride 99 98 - 107 mmol/L [facility] CO2 29 23 - 31 mmol/L [facility] Calcium mg/dL Blood 10.5(H) 8.4 - 10.4 mg/dL [facility] Anion Gap Blood 9 8 - 18 mmol/L [facility] Bun mg/dL Blood 48(H) 8.4 - 25.7 mg/dL [facility] Creatinine 1.64(H) 0.72 - 1.25 mg/dL [facility] EGFRCR CKD-EPI 46(L) >=90 mL/min/1.[address] [facility] Blood (Blood, Venous) 11/16/2022 12:04 AM CDT 11/16/2022 12:25 PM CDT Marion Perry MD LAB BLOOD ORDERABLES Final Result [facility] [address] [place] [address] * POCT glucose (11/15/2022 8:39 PM CDT) Glucose Blood, POC 168 70 - 120 mg/dL [facility] Blood 11/15/2022 8:39 PM CDT 11/15/2022 8:39 PM CDT Provider Not In System LAB POINT OF CARE TEST OR DERABLES Final Result [facility] * POCT glucose (11/15/2022 7:10 AM CDT) Glucose Blood, POC 194 70 - 120 mg/dL [facility] Blood 11/15/2022 7:10 AM CDT 11/15/2022 7:10 AM CDT us Soto Meng MD LAB POINT OF CARE TEST ORDERABLE S Final Result [facility] * POCT glucose (11/15/2022 5:34 AM CDT) Glucose Blood, POC 165 70 - 120 mg/dL [facility] Blood 11/15/2022 5:34 AM CDT 11/15/2022 5:34 AM CDT us Soto Meng MD LAB POINT OF CARE TEST ORDERABLE S Final Result [facility] * POCT glucose (11/14/2022 4:12 PM CDT) Glucose Blood, POC 146 70 - 120 mg/dL [facility] Blood 11/14/2022 4:12 PM CDT 11/14/2022 4:12 PM CDT us Provider Not In System LAB POINT OF CARE TEST OR DERABLES Final Result [facility] * POCT glucose (11/14/2022 11:07 AM CDT) Glucose Blood, POC 211 70 - 120 mg/dL [facility] Blood 11/14/2022 11:0 7 AM CDT 11/14/2022 11:07 AM CDT Soto Meng MD LAB POINT OF CARE TEST ORDERABLE S Final Result [facility] * POCT glucose (11/14/2022 6:35 AM CDT) Glucose Blood, POC 124 70 - 120 mg/dL [facility] Blood 11/14/2022 6:35 AM CDT 11/14/2022 6:35 AM CDT Soto Meng MD LAB POINT OF CARE TEST ORDERABLE S Final Result Performing Organization Address City/[facility]/ZIP Co de Phone Number SM [facility] * POCT glucose (11/13/2022 8:21 PM CDT) Glucose Blood, POC 183 70 - 120 mg/dL [facility] Blood 11/13/2022 8:21 PM CDT 11/13/2022 8:21 PM CDT us Provider Not In System LAB POINT OF CARE TEST OR DERABLES Final Result Performing Organization Address City/[facility]/ZIP Co de Phone Number [facility] * POCT glucose (11/13/2022 4:04 PM CDT) Glucose Blood, POC 161 70 - 120 mg/dL [facility] Blood 11/13/2022 4:04 PM CDT 11/13/2022 4:04 PM CDT Soto Meng MD LAB POINT OF CARE TEST ORDERABLE S Final Result SM [facility] * POCT glucose (11/13/2022 5:56 AM CDT) Glucose Blood, POC 134 70 - 120 mg/dL [facility] Blood 11/13/2022 5:56 AM CDT 11/13/2022 5:56 AM CDT Soto Meng MD LAB POINT OF CARE TEST ORDERABLE S Final Result SM [facility] * POCT glucose (11/12/2022 8:45 PM CDT) Glucose Blood, POC 175 70 - 120 mg/dL [facility] Blood 11/12/2022 8:45 PM CDT 11/12/2022 8:45 PM CDT us Provider Not In System LAB POINT OF CARE TEST OR DERABLES Final Result Performing Organization Address City/[facility]/ZIP Co de Phone Number SM [facility] * POCT glucose (11/12/2022 4:00 PM CDT) Glucose Blood, POC 163 70 - 120 mg/dL [facility] Blood 11/12/2022 4:00 PM CDT 11/12/2022 4:00 PM CDT Soto Meng MD LAB POINT OF CARE TEST ORDERABLE S Final Result Performing Organization Address [facility]/State/ZIP Co de Phone Number SM [facility] * POCT glucose (11/12/2022 6:03 AM CDT) Glucose Blood, POC 142 70 - 120 mg/dL [facility] Blood 11/12/2022 6:03 AM CDT 11/12/2022 6:03 AM CDT Soto Meng MD LAB POINT OF CARE TEST ORDERABLE S Final Result [facility] * (ABNORMAL) BASIC METABOLIC PANEL (11/12/2022 12:10 AM CDT) Glucose mg/dL Blood 125(H) 70 - 105 mg/dL [facility] Sodium mmol/L Blood 137 136 - 145 mmol/L [facility] Potassium mmol/L Blood 5.0 3.5 - 5.1 mmol/L [facility] Chloride 105 98 - 107 mmol/L [facility] CO2 23 23 - 31 mmol/L [facility] Calcium mg/dL Blood 9.0 8.4 - 10.4 mg/dL [facility] Anion Gap Blood 9 8 - 18 mmol/L [facility] Bun mg/dL Blood 33(H) 8.4 - 25.7 mg/dL [facility] Creatinine 1.14 0.72 - 1.25 mg/dL [facility] EGFRCR CKD-EPI 71(L) >=90 mL/min/1.7 3 m2 [facility] Blood (Blood, Venous) 11/12/2022 12:10 AM CDT 11/12/2022 5:21 AM CDT Marion Perry MD LAB BLOOD ORDERABLES Final Result [facility] [address] [place] [address] * POCT glucose (11/11/2022 4:32 PM CDT) Glucose Blood, POC 200 70 - 120 mg/dL [facility] Blood 11/11/2022 4:32 PM CDT 11/11/2022 4:32 PM CDT Soto Meng MD LAB POINT OF CARE TEST ORDERABLE S Final Result [facility] * POCT glucose (11/11/2022 6:59 AM CDT) Glucose Blood, POC 122 70 - 120 mg/dL [facility] Blood 11/11/2022 6:59 AM CDT 11/11/2022 6:59 AM CDT Soto Meng MD LAB POINT OF CARE TEST ORDERABLE S Final Result [facility] * POCT glucose (11/10/2022 4:05 PM CDT) Glucose Blood, POC 139 70 - 120 mg/dL [facility] Blood 11/10/2022 4:05 PM CDT 11/10/2022 4:05 PM CDT us Soto Meng MD LAB POINT OF CARE TEST ORDERABLE S Final Result [facility] * POCT glucose (11/10/2022 6:24 AM CDT) Glucose Blood, POC 129 70 - 120 mg/dL [facility] Blood 11/10/2022 6:24 AM CDT 11/10/2022 6:24 AM CDT us Soto Meng MD LAB POINT OF CARE TEST ORDERABLE S Final Result Performing Organization Address [facility] Co de Phone Number PAPI * POCT glucose (11/09/2022 8:24 PM CDT) Glucose Blood, POC 148 70 - 120 mg/dL [facility] Blood 11/09/2022 8:24 PM CDT 11/09/2022 8:24 PM CDT us Soto Meng MD LAB POINT OF CARE TEST ORDERABLE S Final Result [facility] * POCT glucose (11/09/2022 4:19 PM CDT) Glucose Blood, POC 126 70 - 120 mg/dL [facility] Blood 11/09/2022 4:19 PM CDT 11/09/2022 4:19 PM CDT us Soto Meng MD LAB POINT OF CARE TEST ORDERABLE S Final Result [facility] * POCT glucose (11/09/2022 5:25 AM CDT) Glucose Blood, POC 116 70 - 120 mg/dL [facility] Blood 11/09/2022 5:25 AM CDT 11/09/2022 5:25 AM CDT us Soto Meng MD LAB POINT OF CARE TEST ORDERABLE S Final Result Performing Organization Address [facility] Co de Phone Number PAPI * (ABNORMAL) BASIC METABOLIC PANEL (11/09/2022 4:16 AM CDT) Glucose mg/dL Blood 121(H) 70 - 105 mg/dL [facility] Sodium mmol/L Blood 142 136 - 145 mmol/L [facility] Potassium mmol/L Blood 4.1 3.5 - 5.1 mmol/L [facility] Chloride 109(H) 98 - 107 mmol/L [facility] CO2 26 23 - 31 mmol/L [facility] Calcium mg/dL Blood 9.1 8.4 - 10.4 mg/dL [facility] Anion Gap Blood 7(L) 8 - 18 mmol/L [facility] Bun mg/dL Blood 21 8.4 - 25.7 mg/dL [facility] Creatinine 0.97 0.72 - 1.25 mg/dL [facility] EGFRCR CKD-EPI 86(L) >=90 mL/min/1.7 3 m2 [facility] Blood (Blood, Venous) 11/09/2022 4:16 AM CDT 11/09/2022 4:47 AM CDT us Marion Perry MD LAB BLOOD ORDERABLES Final Result Performing Organization Address City/[facility] Co de Phone Number [facility] [address] [place] [address] * (ABNORMAL) CBC (11/09/2022 4:16 AM CDT) WBC X(10)9/L Blood 7.8 4.4 - 10.7 x10E9/L [facility] Rbc X(10)12/L Blood 3.64(L) 3.80 - 5.40 x10E12/L [facility] HGB gm/dL Blood 10.6(L) 12.0 - 17.6 gm/dL [facility] HCT % Blood 33.2(L) 35.2 - 51.7 % [facility] MCV fL Blood 91.2 80.7 - 98.3 fl [facility] MCH pg Blood 29.1 26.7 - 34.0 pg [facility] MCHC gm/dL Blood 31.9 30.8 - 35.9 gm/dL [facility] Plt Ct X(10)9/L Blood 257 153 - 416 x10E9/L [facility] RDW-Cv % Blood 13.8 12.1 - 14.9 % [facility] MPV fL Blood 9.3(L) 9.4 - 12.[address] [facility] Blood (Blood, Venous) 11/09/2022 4:16 AM CDT 11/09/2022 4:47 AM CDT Marion Perry MD LAB BLOOD ORDERABLES Final Result [facility] [address] [place] [address] * POCT glucose (11/08/2022 4:08 PM CDT) Glucose Blood, POC 173 70 - 120 mg/dL [facility] Blood 11/08/2022 4:08 PM CDT 11/08/2022 4:08 PM CDT us Soto Meng MD LAB POINT OF CARE TEST ORDERABLE S Final Result P[facility] * POCT glucose (11/08/2022 6:18 AM CDT) Glucose Blood, POC 106 70 - 120 mg/dL [facility] Blood 11/08/2022 6:18 AM CDT 11/08/2022 6:18 AM CDT Soto Meng MD LAB POINT OF CARE TEST ORDERABLE S Final Result SM [facility] * POCT glucose (11/07/2022 4:13 PM CDT) Glucose Blood, POC 95 70 - 120 mg/dL [facility] Blood 11/07/2022 4:13 PM CDT 11/07/2022 4:13 PM CDT us Soto Meng MD LAB POINT OF CARE TEST ORDERABLE S Final Result Performing Organization Address City/[facility]/ZIP Co de Phone Number SM [facility] * POCT glucose (11/07/2022 6:25 AM CDT) Glucose Blood, POC 111 70 - 120 mg/dL [facility] Blood 11/07/2022 6:25 AM CDT 11/07/2022 6:25 AM CDT Soto Meng MD LAB POINT OF CARE TEST ORDERABLE S Final Result Performing Organization Address [facility] Co de Phone Number SM [facility] * XR hip left with pelvis (11/06/2022 5:20 PM CDT) Anatomical Region Laterality Modality Computed Radiogr aphy Narrative 11/06/2022 5:34 PM CDT NARRATIVE: PROCEDURE: ??XR PELVIS W LEFT HIP 2VW, DATE/TIME OF EXAM: ??11/06/2022 5:20 PM, LOCATION ??[facility] INDICATION: OA Left hip 3 views HISTORY: Hip pain Mild symmetric degenerative change the hip joints are present with minimal joint space narrowing. No fracture or dislocation is seen. The sacroiliac joints are normal. The visualized soft tissues are normal DIAGNOSIS: Degenerative change > Interpreting Provider: Brad Cruz MD on 11/06/2022 5:34 PM Procedure Note System, Provider Not In - 11/06/2022 NARRATIVE: PROCEDURE: XR PELVIS W LEFT HIP 2VW, DATE/TIME OF EXAM: 11/06/2022 5:20 PM, LOCATION [facility] INDICATION: OA Left hip 3 views HISTORY: Hip pain Mild symmetric degenerative change the hip joints are present withminimal joint space narrowing. No fracture or dislocation is seen. Thesacroiliac joints are normal. The visualized soft tissues are normal DIAGNOSIS: Degenerative change > Interpreting Provider: Brad Cruz MD on 11/06/2022 5:34 PM Carolina Garibay MD IMG DIAGNOSTIC IMAGING ORDERABLE S Final Result * POCT glucose (11/06/2022 4:14 PM CDT) Glucose Blood, POC 103 70 - 120 mg/dL [facility] Blood 11/06/2022 4:14 PM CDT 11/06/2022 4:14 PM CDT Soto Meng MD LAB POINT OF CARE TEST ORDERABLE S Final Result Performing Organization Address [facility] de Phone Number P[facility] * POCT glucose (11/05/2022 4:00 PM CDT) Glucose Blood, POC 143 70 - 120 mg/dL [facility] Blood 11/05/2022 4:00 PM CDT 11/05/2022 4:00 PM CDT Soto Meng MD LAB POINT OF CARE TEST ORDERABLE S Final Result Performing Organization Address City/[facility] Co de Phone Number P[facility] * POCT glucose (11/05/2022 6:21 AM CDT) Glucose Blood, POC 133 70 - 120 mg/dL [facility] Blood 11/05/2022 6:21 AM CDT 11/05/2022 6:21 AM CDT Soto Meng MD LAB POINT OF CARE TEST ORDERABLE S Final Result Performing Organization Address City/[facility]/ZIP Co de Phone Number [facility] * (ABNORMAL) BASIC METABOLIC PANEL (11/05/2022 2:49 AM CDT) Glucose mg/dL Blood 116(H) 70 - 105 mg/dL [facility] Sodium mmol/L Blood 140 136 - 145 mmol/L [facility] Potassium mmol/L Blood 4.2 3.5 - 5.1 mmol/L [facility] Chloride 111(H) 98 - 107 mmol/L [facility] CO2 23 23 - 31 mmol/L [facility] Calcium mg/dL Blood 8.5 8.4 - 10.4 mg/dL [facility] Anion Gap Blood 6(L) 8 - 18 mmol/L [facility] Bun mg/dL Blood 20 8.4 - 25.7 mg/dL [facility] Creatinine 0.91 0.72 - 1.25 mg/dL [facility] EGFRCR CKD-EPI >90 >=90 mL/min/1.7 3 m2 [facility] Blood (Blood, Venous) 11/05/2022 2:49 AM CDT 11/05/2022 3:13 AM CDT Marion Perry MD LAB BLOOD ORDERABLES Final Result Performing Organization Address [facility] de Phone Number [facility] [address] [place] [address] * (ABNORMAL) CBC (11/05/2022 2:20 AM CDT) WBC X(10)9/L Blood 6.6 4.4 - 10.7 x10E9/L [facility] Rbc X(10)12/L Blood 3.26(L) 3.80 - 5.40 x10E12/L [facility] HGB gm/dL Blood 9.7(L) 12.0 - 17.6 gm/dL [facility] HCT % Blood 30.1(L) 35.2 - 51.7 % [facility] MCV fL Blood 92.3 80.7 - 98.3 fl [facility] MCH pg Blood 29.8 26.7 - 34.0 pg [facility] MCHC gm/dL Blood 32.2 30.8 - 35.9 gm/dL [facility] Plt Ct X(10)9/L Blood 282 153 - 416 x10E9/L [facility] RDW-Cv % Blood 13.6 12.1 - 14.9 % [facility] MPV fL Blood 8.7(L) 9.4 - 12.9 fl [facility] Blood (Blood, Venous) 11/05/2022 2:20 AM CDT 11/05/2022 3:13 AM CDT us Marion Perry MD LAB BLOOD ORDERABLES Final Result [facility] [address] [place] [address] * POCT glucose (11/04/2022 4:13 PM CDT) Glucose Blood, POC 121 70 - 120 mg/dL [facility] Blood 11/04/2022 4:13 PM CDT 11/04/2022 4:13 PM CDT Provider Not In System LAB POINT OF CARE TEST OR DERABLES Final Result Performing Organization Address [facility]/ZIP Co de Phone Number PAPI * POCT glucose (11/04/2022 12:17 PM CDT) Glucose Blood, POC 117 70 - 120 mg/dL [facility] Blood 11/04/2022 12:1 7 PM CDT 11/04/2022 12:17 PM CDT us Soto Meng MD LAB POINT OF CARE TEST ORDERABLE S Final Result [facility] * POCT glucose (11/04/2022 7:03 AM CDT) Glucose Blood, POC 115 70 - 120 mg/dL [facility] Blood 11/04/2022 7:03 AM CDT 11/04/2022 7:03 AM CDT us Soto Meng MD LAB POINT OF CARE TEST ORDERABLE S Final Result [facility] * POCT glucose (11/03/2022 9:38 PM CDT) Glucose Blood, POC 106 70 - 120 mg/dL [facility] Blood 11/03/2022 9:38 PM CDT 11/03/2022 9:38 PM CDT us Provider Not In System LAB POINT OF CARE TEST OR DERABLES Final Result [facility] * POCT glucose (11/03/2022 4:08 PM CDT) Glucose Blood, POC 124 70 - 120 mg/dL [facility] Blood 11/03/2022 4:08 PM CDT 11/03/2022 4:08 PM CDT us Soto Meng MD LAB POINT OF CARE TEST ORDERABLE S Final Result [facility] * POCT glucose (11/03/2022 12:06 PM CDT) Glucose Blood, POC 224 70 - 120 mg/dL [facility] Blood 11/03/2022 12:0 6 PM CDT 11/03/2022 12:06 PM CDT us Soto Meng MD LAB POINT OF CARE TEST ORDERABLE S Final Result [facility] * POCT glucose (11/03/2022 6:21 AM CDT) Glucose Blood, POC 113 70 - 120 mg/dL [facility] Blood 11/03/2022 6:21 AM CDT 11/03/2022 6:21 AM CDT Soto Meng MD LAB POINT OF CARE TEST ORDERABLE S Final Result [facility] * POCT glucose (11/02/2022 9:35 PM CDT) Glucose Blood, POC 112 70 - 120 mg/dL [facility] Blood 11/02/2022 9:35 PM CDT 11/02/2022 9:35 PM CDT us Provider Not In System LAB POINT OF CARE TEST OR DERABLES Final Result [facility] * POCT glucose (11/02/2022 4:18 PM CDT) Glucose Blood, POC 103 70 - 120 mg/dL [facility] Blood 11/02/2022 4:18 PM CDT 11/02/2022 4:18 PM CDT Soto Meng MD LAB POINT OF CARE TEST ORDERABLE S Final Result SM [facility] * POCT glucose (11/02/2022 11:05 AM CDT) Glucose Blood, POC 131 70 - 120 mg/dL [facility] Blood 11/02/2022 11:0 5 AM CDT 11/02/2022 11:05 AM CDT Soto Meng MD LAB POINT OF CARE TEST ORDERABLE S Final Result [facility] * POCT glucose (11/02/2022 6:02 AM CDT) Glucose Blood, POC 122 70 - 120 mg/dL [facility] Blood 11/02/2022 6:02 AM CDT 11/02/2022 6:02 AM CDT Soto Meng MD LAB POINT OF CARE TEST ORDERABLE S Final Result Performing Organization Address City/[facility]/ZIP Co de Phone Number PAPI * (ABNORMAL) BASIC METABOLIC PANEL (11/02/2022 12:22 AM CDT) Glucose mg/dL Blood 110(H) 70 - 105 mg/dL [facility] Sodium mmol/L Blood 140 136 - 145 mmol/L [facility] Potassium mmol/L Blood 4.8 3.5 - 5.1 mmol/L [facility] Chloride 112(H) 98 - 107 mmol/L [facility] CO2 18(L) 23 - 31 mmol/L [facility] Calcium mg/dL Blood 9.2 8.4 - 10.4 mg/dL [facility] Anion Gap Blood 10 8 - 18 mmol/L [facility] Bun mg/dL Blood 27(H) 8.4 - 25.7 mg/dL [facility] Creatinine 1.23 0.72 - 1.25 mg/dL [facility] EGFRCR CKD-EPI 65(L) >=90 mL/min/1.7 3 m2 [facility] Blood (Blood, Venous) 11/02/2022 12:22 AM CDT 11/02/2022 8:14 AM CDT Marion Perry MD LAB BLOOD ORDERABLES Final Result Performing Organization Address [facility] Co de Phone Number [facility] [address] [place] [address] * (ABNORMAL) CBC (11/02/2022 12:22 AM CDT) WBC X(10)9/L Blood 7.2 4.4 - 10.7 x10E9/L [facility] Rbc X(10)12/L Blood 3.12(L) 3.80 - 5.40 x10E12/L [facility] HGB gm/dL Blood 9.3(L) 12.0 - 17.6 gm/dL [facility] HCT % Blood 29.1(L) 35.2 - 51.7 % [facility] MCV fL Blood 93.3 80.7 - 98.3 fl [facility] MCH pg Blood 29.8 26.7 - 34.0 pg [facility] MCHC gm/dL Blood 32.0 30.8 - 35.9 gm/dL [facility] Plt Ct X(10)9/L Blood 272 153 - 416 x10E9/L [facility] RDW-Cv % Blood 13.8 12.1 - 14.9 % [facility] MPV fL Blood 9.5 9.4 - 12.9 fl [facility] Blood (Blood, Venous) 11/02/2022 12:22 AM CDT 11/02/2022 8:14 AM CDT us Marion Perry MD LAB BLOOD ORDERABLES Final Result [facility] [address] [place] [address] * POCT glucose (11/01/2022 9:20 PM CDT) Glucose Blood, POC 139 70 - 120 mg/dL [facility] Blood 11/01/2022 9:20 PM CDT 11/01/2022 9:20 PM CDT us Provider Not In System LAB POINT OF CARE TEST OR DERABLES Final Result Performing Organization Address City/[facility]/ZIP Co de Phone Number P[facility] * POCT glucose (11/01/2022 4:46 PM CDT) Glucose Blood, POC 139 70 - 120 mg/dL [facility] Blood 11/01/2022 4:46 PM CDT 11/01/2022 4:46 PM CDT us Soto Meng MD LAB POINT OF CARE TEST ORDERABLE S Final Result [facility] * POCT glucose (11/01/2022 11:51 AM CDT) Glucose Blood, POC 119 70 - 120 mg/dL [facility] Blood 11/01/2022 11:5 1 AM CDT 11/01/2022 11:51 AM CDT Soto Meng MD LAB POINT OF CARE TEST ORDERABLE S Final Result [facility] * POCT glucose (11/01/2022 6:11 AM CDT) Glucose Blood, POC 125 70 - 120 mg/dL [facility] Blood 11/01/2022 6:11 AM CDT 11/01/2022 6:11 AM CDT Soto Meng MD LAB POINT OF CARE TEST ORDERABLE S Final Result Performing Organization Address [facility]/ZIP Co de Phone Number [facility] * POCT glucose (10/31/2022 4:44 PM CDT) Glucose Blood, POC 148 70 - 120 mg/dL [facility] Blood 10/31/2022 4:44 PM CDT 10/31/2022 4:44 PM CDT Soto Meng MD LAB POINT OF CARE TEST ORDERABLE S Final Result Performing Organization Address [facility] Co de Phone Number SM [facility] * POCT glucose (10/31/2022 12:21 PM CDT) Glucose Blood, POC 208 70 - 120 mg/dL [facility] Blood 10/31/2022 12:2 1 PM CDT 10/31/2022 12:21 PM CDT Soto Meng MD LAB POINT OF CARE TEST ORDERABLE S Final Result [facility] * (ABNORMAL) BASIC METABOLIC PANEL (10/31/2022 6:28 AM CDT) Glucose mg/dL Blood 122(H) 70 - 105 mg/dL [facility] Sodium mmol/L Blood 142 136 - 145 mmol/L [facility] Potassium mmol/L Blood 4.8 3.5 - 5.1 mmol/L [facility] Chloride 111(H) 98 - 107 mmol/L [facility] CO2 23 23 - 31 mmol/L [facility] Calcium mg/dL Blood 9.7 8.4 - 10.4 mg/dL [facility] Anion Gap Blood 8 8 - 18 mmol/L [facility] Bun mg/dL Blood 35(H) 8.4 - 25.7 mg/dL [facility] Creatinine 1.28(H) 0.72 - 1.25 mg/dL [facility] EGFRCR CKD-EPI 62(L) >=90 mL/min/1.7 3 m2 [facility] Blood (Blood, Venous) 10/31/2022 6:28 AM CDT 10/31/2022 7:43 AM CDT us Valencia Johnson MD LAB BLOOD ORDERABLES Final Res ult Performing Organization Address City/[facility]/ZIP Co de Phone Number [facility] [address] [place] [address] * POCT glucose (10/31/2022 6:26 AM CDT) Glucose Blood, POC 117 70 - 120 mg/dL [facility] Blood 10/31/2022 6:26 AM CDT 10/31/2022 6:26 AM CDT us Soto Meng MD LAB POINT OF CARE TEST ORDERABLE S Final Result Performing Organization Address City/[facility]/ZIP Co de Phone Number [facility] * POCT glucose (10/30/2022 4:56 PM CDT) Glucose Blood, POC 128 70 - 120 mg/dL [facility] Blood 10/30/2022 4:56 PM CDT 10/30/2022 4:56 PM CDT us Marion Perry MD LAB POINT OF CARE TEST ORDE RABSHANIA Final Result [facility] * POCT glucose (10/30/2022 11:42 AM CDT) Glucose Blood, POC 173 70 - 120 mg/dL [facility] Blood 10/30/2022 11:4 2 AM CDT 10/30/2022 11:42 AM CDT Marion Perry MD LAB POINT OF CARE TEST ORDE RABLES Final Result [facility] * POCT glucose (10/30/2022 6:32 AM CDT) Glucose Blood, POC 139 70 - 120 mg/dL [facility] Blood 10/30/2022 6:32 AM CDT 10/30/2022 6:32 AM CDT Marion Perry MD LAB POINT OF CARE TEST ORDE RABSHANIA Final Result Performing Organization Address [facility]/ZIP Co de Phone Number [facility] * VITAMIN B12 (10/30/2022 2:05 AM CDT) Vitamin B12 pg/mL Blood 395 213 - 816 pg/mL [facility] Blood (Blood, Venous) 10/30/2022 2:05 AM CDT 10/30/2022 2:53 AM CDT Soto Meng MD LAB BLOOD ORDERABLES Final Resul t [facility] [address] [place] [address] * (ABNORMAL) Vitamin D,25-Hydroxy (10/30/2022 2:05 AM CDT) Vitamin D, 25-Hydroxy 18.0(L) 30 - 100 ng/mL [facility] Blood (Blood, Venous) 10/30/2022 2:05 AM CDT 10/30/2022 2:53 AM CDT Narrative [facility] - 10/30/2022 3:40 AM CDT Vitamin D Status: ?Deficiency ? <20 ? ng/mL ?Insufficiency ?? 20-30 ??ng/mL ?Sufficiency ? 30-100 ng/mL ?Toxicity ? >100 ?ng/mL us Soto Meng MD LAB BLOOD ORDERABLES Final Resul t Performing Organization Address [facility] de Phone Number [facility] [address] [place] [address] * POCT glucose (10/29/2022 8:35 PM CDT) Glucose Blood, POC 174 70 - 120 mg/dL [facility] Blood 10/29/2022 8:35 PM CDT 10/29/2022 8:35 PM CDT us Marion Perry MD LAB POINT OF CARE TEST ORDE RABSHANIA Final Result Performing Organization Address [facility] de Phone Number [facility] * POCT glucose (10/29/2022 4:03 PM CDT) Glucose Blood, POC 132 70 - 120 mg/dL [facility] Blood 10/29/2022 4:03 PM CDT 10/29/2022 4:03 PM CDT us Marion Perry MD LAB POINT OF CARE TEST ORDE JD Final Result Performing Organization Address [facility] de Phone Number [facility] * POCT glucose (10/29/2022 11:06 AM CDT) Glucose Blood, POC 179 70 - 120 mg/dL [facility] Blood 10/29/2022 11:0 6 AM CDT 10/29/2022 11:06 AM CDT Marion Perry MD LAB POINT OF CARE TEST ORDE RABSHANIA Final Result [facility] * (ABNORMAL) BASIC METABOLIC PANEL (10/29/2022 5:32 AM CDT) Glucose mg/dL Blood 160(H) 70 - 105 mg/dL [facility] Sodium mmol/L Blood 141 136 - 145 mmol/L [facility] Potassium mmol/L Blood 4.8 3.5 - 5.1 mmol/L [facility] Chloride 110(H) 98 - 107 mmol/L [facility] CO2 21(L) 23 - 31 mmol/L [facility] Calcium mg/dL Blood 9.6 8.4 - 10.4 mg/dL [facility] Anion Gap Blood 10 8 - 18 mmol/L [facility] Bun mg/dL Blood 42(H) 8.4 - 25.7 mg/dL [facility] Creatinine 1.58(H) 0.72 - 1.25 mg/dL [facility] EGFRCR CKD-EPI 48(L) >=90 mL/min/1.7 3 m2 [facility] Blood (Blood, Venous) 10/29/2022 5:32 AM CDT 10/29/2022 6:04 AM CDT Marion Perry MD LAB BLOOD ORDERABLES Final Result [facility] [address] [place] [address] * (ABNORMAL) CBC w/o Differential (10/29/2022 5:31 AM CDT) WBC X(10)9/L Blood 8.7 4.4 - 10.7 x10E9/L [facility] Rbc X(10)12/L Blood 3.64(L) 3.80 - 5.40 x10E12/L [facility] HGB gm/dL Blood 10.7(L) 12.0 - 17.6 gm/dL [facility] HCT % Blood 33.5(L) 35.2 - 51.7 % [facility] MCV fL Blood 92.0 80.7 - 98.3 fl [facility] MCH pg Blood 29.4 26.7 - 34.0 pg [facility] MCHC gm/dL Blood 31.9 30.8 - 35.9 gm/dL [facility] Plt Ct X(10)9/L Blood 308 153 - 416 x10E9/L [facility] RDW-Cv % Blood 13.7 12.1 - 14.9 % [facility] MPV fL Blood 9.1(L) 9.4 - 12.9 fl [facility] Blood (Blood, Venous) 10/29/2022 5:31 AM CDT 10/29/2022 6:04 AM CDT Marino Perry MD LAB BLOOD ORDERABLES Final Result Performing Organization Address City/[facility]/ZIP Co de Phone Number [facility] [address] [place] [address] * POCT glucose (10/29/2022 5:29 AM CDT) Glucose Blood, POC 188 70 - 120 mg/dL [facility] Blood 10/29/2022 5:29 AM CDT 10/29/2022 5:29 AM CDT Marion Perry MD LAB POINT OF CARE TEST ORDE RABSHANIA Final Result [facility] * POCT glucose (10/28/2022 9:37 PM CDT) Glucose Blood, POC 169 70 - 120 mg/dL [facility] Blood 10/28/2022 9:37 PM CDT 10/28/2022 9:37 PM CDT Marion Perry MD LAB POINT OF CARE TEST ORDE RABSHANIA Final Result [facility] documented in this encounter Visit Diagnoses Diagnosis Cerebrovascular accident- Primary Cerebrovascular accident Dysphagia documented in this encounter Admitting Diagnoses Diagnosis Cerebrovascular accident documented in this encounter Administered Medications Inactive Administered Medications - up to 3 most recent administrations Medication Order MAR Action Action Date Dose Rate Site acetaminophen (TYLENOL) tablet 650 mg 650 mg, Oral, Every 8 hours, First dose (after last modification) on Wed10/28/22 at 2200, Until Discontinued Given 11/20/2022 2:10 PM CDT 650 mg Given 11/20/2022 5:41 AM CDT 650 mg Given 11/19/2022 9:55 PM CDT 650 mg Alogliptin Benzoate (NESINA) tablet 12.5 mg 12.5 mg, Oral, Daily, First dose on Wed10/29/22 at 0900, Until Discontinued, Indications: Type 2 Diabetes MellitusIndications:Type 2 Diabetes Mellitus Given 11/06/2022 9:25 AM CDT 12.5 mg Given 11/05/2022 8:33 AM CDT 12.5 mg Given 11/04/2022 8:17 AM CDT 12.5 mg amLODIPine (NORVASC) tablet 10 mg 10 mg, Oral, Daily, First dose (after last modification) on Wed10/29/22 at 0900, Until Discontinued, Hold for SBP < 110 Given 10/30/2022 8:51 AM CDT 10 mg aspirin EC tablet 81 mg 81 mg, Oral, Daily, First dose on Wed10/29/22 at 0900, Until Discontinued, DO NOT CRUSH, CUT, OR CHEW., Indications: Coronary ArteriosclerosisIndications:Coronary Arteriosclerosis Given 11/20/2022 8:46 AM CDT 81 mg Given 11/19/2022 10:10 AM CDT 81 mg Given 11/18/2022 8:58 AM CDT 81 mg bisacodyl (DULCOLAX) suppository 10 mg 10 mg, Rectal, Once, 1 dose, On Wed11/18/22 at 1000 Given 11/18/2022 10:03 AM CDT 10 mg bismuth subsalicylate (PEPTO BISMOL) 262 MG/15ML suspension 30 mL 30 mL, Oral, Every 6 hours PRN, Starting on Wed10/28/22 at 2111, Until Wed11/20/22 at 2114, for Diarrhea Given 11/05/2022 9:27 PM CDT 30 mL Given 11/05/2022 12:45 PM CDT 30 mL brimonidine (ALPHAGAN) 0.2 % ophthalmic solution 1 drop 1 drop, Both Eyes, 3 times daily (3 times per day), First dose on Wed11/08/22 at 1500, Until Discontinued Given 11/20/2022 2:18 PM CDT 1 drop Given 11/20/2022 8:52 AM CDT 1 drop Given 11/19/2022 8:03 PM CDT 1 drop calcium carbonate (TUMS) chewable tablet 1,000 mg 1,000 mg, Oral, Every 2 hour PRN, Starting on Wed10/28/22 at 2111, Until Wed11/17/22 at 1402, heartburn, indigestion Given 11/01/2022 1:13 PM CDT 1,000 mg carvedilol (COREG) tablet 3.125 mg 3.125 mg, Oral, 2 times daily with meals (2 times per day), First dose on 10/31/22 at 0800, Until Discontinued, Hold if pulse < 60 Given 11/18/2022 8:57 AM CDT 3.125 mg Given 11/17/2022 8:25 AM CDT 3.125 mg Given 11/15/2022 6:44 PM CDT 3.125 mg carvedilol (COREG) tablet 3.125 mg 3.125 mg, Oral, 2 times daily with meals (2 times per day), First dose (after last modification) on Wed11/18/22 at 1700, Until Discontinued, Hold if pulse < 60 , Hold if SBP (mmHg) less than: if less than 110 Given 11/20/2022 4:12 PM CDT 3.125 mg Given 11/20/2022 8:45 AM CDT 3.125 mg Given 11/19/2022 10:10 AM CDT 3.125 mg carvedilol (COREG) tablet 6.25 mg 6.25 mg, Oral, 2 times daily with meals (2 times per day), First dose on [place] 10/29/22 at 0800, Until Discontinued, Hold if HR (bpm) less than: 60, Hold if SBP (mmHg) less than: 100 Given 10/30/2022 8:51 AM CDT 6.25 mg Given 10/29/2022 5:54 PM CDT 6.25 mg Check Patch Placement Transdermal, 2 times daily (2 times per day), First dose on Wed10/29/22 at 0900, Until Discontinued Check Patch Placement 11/20/2022 9:00 AM CDT Left Arm Check Patch Placement 11/19/2022 8:06 PM CDT Right Arm Check Patch Placement 11/19/2022 10:12 AM CDT Right Arm cholecalciferol (VITAMIN D3) capsule 50,000 Units 50,000 Units, Oral, Weekly, First dose on Wed10/30/22 at 1015, Until Discontinued, Vitamin D Equivalency Table: Cholecalciferol or ergocalciferol 1 unit = 0.025 mcg cholecalciferol or ergocalciferol 40 units = 1 mcg cholecalciferol (Vitamin D): 400 IU = 10 mcg cholecalciferol (Vitamin D): 1000 IU = 25 mcg cholecalciferol (Vitamin D): 2000 IU = 50 mcg Given 11/13/2022 8:51 AM CDT 50,000 Units Given 11/06/2022 9:24 AM CDT 50,000 Units Given 10/30/2022 11:00 AM CDT 50,000 Units clopidogrel (PLAVIX) tablet 75 mg 75 mg, Oral, Daily, 81 doses, First dose (after last modification) on Wed10/29/22 at 0900, Last dose on Wed01/17/23 at 0900, Indications: Coronary Arteriosclerosis, Ischemic Stroke, Percutaneous Coronary InterventionIndications:Coronary Arteriosclerosis,Ischemic Stroke,Percutaneous Coronary Intervention Given 11/20/2022 8:46 AM CDT 75 mg Given 11/19/2022 10:10 AM CDT 75 mg Given 11/18/2022 8:57 AM CDT 75 mg cyclobenzaprine (FLEXERIL) tablet 5 mg 5 mg, Oral, 3 times daily PRN, Starting on Wed11/01/22 at 1354, Until Wed11/20/22 at 2114, muscle spasms Given 11/18/2022 1:11 PM CDT 5 mg Given 11/17/2022 12:51 PM CDT 5 mg Given 11/14/2022 9:14 PM CDT 5 mg dextrose 50 % IV solution 12.5 g 12.5 g, Intravenous, at 500 mL/hr, Administer over 3 Minutes, As needed, Starting on Wed10/28/22 at 2110, Until Wed11/20/22 at 2113, hypoglycemia, blood sugar 50-69mg/dL, If Patient is Alert, NPO and has IV access: a. If blood glucose 50 - 69 mg/dL, give patient 12.5 g of Dextrose IV push over 3 minutes. b. If blood glucose < 50 mg/dL, give patient 25 g of Dextrose IV push over 3 minutes. c. Start IV D5-0.45% saline at 50 ml/hr. For renal patients start IV D5W at 50 Ml/hr. d. Call LIP to notify of protocol initiation and patient response to treatment. If Patient is unresponsive with IV access: a. See PEDIATRICIAN/MEDICAL DOCTOR Protocol approved by your Medical staff, or b. If blood glucose 50 - 69 mg/dL, give patient 12.5 g of Dextrose IV push over 3 minutes. c. If blood glucose < 50 mg/dL, give patient 25 g of Dextrose IV push over 3 minutes. d. Start IV D5-0.45% saline at 50 ml/hr. For renal patients start IV D5W at 50 Ml/hr. e. Call LIP to notify of protocol initiation and patient response to treatment., Indications: HypoglycemiaIndications:Hypoglycemia dextrose 50 % IV solution 25 g 25 g, Intravenous, at 1,000 mL/hr, Administer over 3 Minutes, As needed, Starting on Wed10/28/22 at 2110, Until Wed11/20/22 at 2113, hypoglycemia, blood sugar < 50mg/dL, If Patient is Alert, NPO and has IV access: a. If blood glucose 50 - 69 mg/dL, give patient 12.5 g of Dextrose IV push over 3 minutes. b. If blood glucose < 50 mg/dL, give patient 25 g of Dextrose IV push over 3 minutes. c. Start IV D5-0.45% saline at 50 ml/hr. For renal patients start IV D5W at 50 Ml/hr. d. Call LIP to notify of protocol initiation and patient response to treatment. If Patient is unresponsive with IV access: a. See PEDIATRICIAN/MEDICAL DOCTOR Protocol approved by your Medical staff, or b. If blood glucose 50 - 69 mg/dL, give patient 12.5 g of Dextrose IV push over 3 minutes. c. If blood glucose < 50 mg/dL, give patient 25 g of Dextrose IV push over 3 minutes. d. Start IV D5-0.45% saline at 50 ml/hr. For renal patients start IV D5W at 50 Ml/hr. e. Call LIP to notify of protocol initiation and patient response to treatment., Indications: HypoglycemiaIndications:Hypoglycemia Empagliflozin (JARDIANCE) tablet 25 mg 25 mg, Oral, Daily, First dose (after last modification) on Wed10/29/22 at 0900, Until Discontinued, Indications: Type 2 Diabetes MellitusIndications:Type 2 Diabetes Mellitus Given 10/30/2022 8:55 AM CDT 25 mg Given 10/29/2022 10:42 AM CDT 25 mg Fluticasone-Salmeterol (AIRDUO RESPICLICK) 232-14 MCG/ACT inhaler 1 puff 1 puff, Inhalation, RT 2 times daily, First dose (after last modification) on Wed10/28/22 at 2130, Until Discontinued, Symbicort has been substituted per Therapeutic Interchange Policy to AirDuo equivalent dose. Given 11/20/2022 8:51 AM CDT 1 puff Given 11/19/2022 7:59 PM CDT 1 puff Given 11/19/2022 10:13 AM CDT 1 puff gabapentin (NEURONTIN) capsule 200 mg 200 mg, Oral, 3 times daily (3 times per day), First dose (after last modification) on Wed10/28/22 at 2130, Until Discontinued Given 11/20/2022 2:16 PM CDT 200 mg Given 11/20/2022 8:46 AM CDT 200 mg Given 11/19/2022 8:01 PM CDT 200 mg glipiZIDE (GLUCOTROL) tablet 5 mg 5 mg, Oral, Daily, First dose on Wed11/02/22 at 0900, Until Discontinued, Indications: Type 2 Diabetes MellitusIndications:Type 2 Diabetes Mellitus Given 11/20/2022 8:46 AM CDT 5 mg Given 11/19/2022 10:09 AM CDT 5 mg Given 11/18/2022 8:57 AM CDT 5 mg hemorrhoidal ointment Apply externally, 3 times daily PRN, Starting on Wed10/29/22 at 0839, Until Wed11/20/22 at 2114, hemorrhoids, Apply to hemorrhoids. Given 11/13/2022 9:18 PM CDT Given 11/09/2022 1:04 AM CDT Given 10/30/2022 1:42 PM CDT heparin (porcine) injection 5,000 Units 5,000 Units, Subcutaneous, Every 8 hours, First dose (after last modification) on Wed10/28/22 at 2200, Until Discontinued, Indications: Deep Vein Thrombosis ProphylaxisIndications:Deep Vein Thrombosis Prophylaxis Given 11/20/2022 2:11 PM CDT 5,000 Units Abdominal Tissue Given 11/20/2022 5:41 AM CDT 5,000 Units A bdominal Tissue Given 11/19/2022 9:54 PM CDT 5,000 Units A bdominal Tissue ibuprofen (MOTRIN) tablet 200 mg 200 mg, Oral, Every 6 hours PRN, Starting on Wed11/03/22 at 1159, Until Wed11/18/22 at 1401, moderate pain Given 11/17/2022 12:50 PM CDT 200 mg insulin glargine (LANTUS) injection 10 Units 10 Units, Subcutaneous, Daily, First dose on Wed10/29/22 at 0900, Until Discontinued, Indications: Type 2 Diabetes MellitusIndications:Type 2 Diabetes Mellitus Given - Witness Not Required 11/01/2022 9:26 AM CDT 10 Units Right Arm Given - Witness Not Required 10/31/2022 8:39 AM CDT 10 Uni ts Abdominal Tissue Given - Witness Not Required 10/30/2022 10:07 AM CDT 10 Un its Abdominal Tissue insulin lispro injection 0-12 Units 0-12 Units, Subcutaneous, 3 times daily before meals, First dose on Wed10/29/22 at 0730, Until Discontinued, Blood Sugar Low Dose <70 Initiate hypoglycemia treatment 70 - 150 No Insulin 151-200 2 units 201-250 4 units 251-300 6 units 301-350 8 units 351-400 10 units >400 12 units & Call Medical Provider, Indications: HyperglycemiaIndications :Hyperglycemia Given - Witness Not Required 10/30/2022 1:42 PM CDT 2 Units Abdominal Tissue Given - Witness Not Required 10/29/2022 12:55 PM CDT 2 Uni ts Abdominal Tissue Given - Witness Not Required 10/29/2022 10:40 AM CDT 2 Uni ts Abdominal Tissue insulin lispro injection 0-12 Units 0-12 Units, Subcutaneous, 3 times daily before meals, First dose (after last modification) on Wed10/31/22 at 0730, Until Discontinued, Blood Sugar Low Dose <70 Initiate hypoglycemia treatment 70 - 150 No Insulin 151-200 2 units 201-250 4 units 251-300 6 units 301-350 8 units 351-400 10 units >400 12 units & Call Medical Provider, Indications: HyperglycemiaIndications :Hyperglycemia Given - Witness Not Required 11/03/2022 12:26 PM CDT 4 Units Abdominal Tissue Given - Witness Not Required 10/31/2022 3:23 PM CDT 4 Unit s Abdominal Tissue ipratropium-albuterol (DUO-NEB) 0.5-2.5 mg/3 mL nebulizer solution 3 mL 3 mL, Inhalation, RT Every 4 hours PRN, Starting on Wed10/28/22 at 2111, Until Wed11/20/22 at 2114, shortness of breath, wheezing Given 11/02/2022 11 :44 PM CDT 3 mL ketoconazole (NIZORAL) 2 % cream Topical, Daily, First dose on Wed11/04/22 at 0900, Until Discontinued, To bottom of feet daily Given 11/20/2022 8:51 AM CDT Given 11/19/2022 10:13 AM CDT Given 11/18/2022 8:58 AM CDT lidocaine (LIDOCARE) 4 % patch 1 patch 1 patch, Transdermal, Administer over 12 Hours, Daily, First dose on Wed10/29/22 at 0900, Until Discontinued, Apply to LOWER BACK. May cut patches if needed. Remove patch after 12 hours. Medication Applied 11/04/2022 8:18 AM CDT 1 patch Other Medication Applied 11/03/2022 8:30 AM CDT 1 patch Other Medication Applied 11/02/2022 8:50 AM CDT 1 patch Other lidocaine (LIDOCARE) 4 % patch 3 patch 3 patch, Transdermal, Administer over 12 Hours, Daily, First dose (after last modification) on Wed11/04/22 at 1145, Until Discontinued, Apply to LOWER BACK. May cut patches if needed. Remove patch after 12 hours. Medication Applied 11/19/2022 10:11 AM CDT 3 patches Left Arm Medication Applied 11/18/2022 8:59 AM CDT 3 patches Back Medication Applied 11/17/2022 8:29 AM CDT 3 patches Other losartan (COZAAR) tablet 25 mg 25 mg, Oral, Daily, First dose (after last modification) on Wed10/31/22 at 0900, Until Discontinued, Hold for SBP < 110 Given 11/17/2022 8:26 AM CDT 25 mg Given 11/15/2022 10:28 AM CDT 25 mg Given 11/13/2022 8:50 AM CDT 25 mg losartan (COZAAR) tablet 50 mg 50 mg, Oral, Daily, First dose (after last modification) on Wed10/29/22 at 0900, Until Discontinued, Hold for SBP < 110 Given 10/30/2022 8:52 AM CDT 50 mg melatonin tablet 9 mg 9 mg, Oral, Nightly, First dose on Wed10/28/22 at 2130, Until Discontinued Given 11/19/2022 8:00 PM CDT 9 mg Given 11/18/2022 8:02 PM CDT 9 mg Given 11/17/2022 8:18 PM CDT 9 mg midodrine (PROAMATINE) tablet 5 mg 5 mg, Oral, Once, 1 dose, On Wed10/29/22 at 0815 Given 10/29/2022 10:20 AM CDT 5 mg midodrine (PROAMATINE) tablet 5 mg 5 mg, Oral, Every 8 hours PRN, Starting on Wed11/16/22 at 1045, Until Wed11/20/22 at 2114, SBP less than 90 muscle rub (ICY HOT) 10-15 % cream Topical, 2 times daily (2 times per day), First dose on Wed11/09/22 at 2100, Until Discontinued Given 11/20/2022 8:52 AM CDT Given 11/19/2022 8:03 PM CDT Given 11/19/2022 10:13 AM CDT nicotine (NICODERM CQ) patch 21 mg 21 mg, Transdermal, Administer over 24 Hours, Daily, First dose on Wed10/29/22 at 0900, Until Discontinued, Hazardous waste (p-listed) Dispose of wrapper and any unused medication appropriately Dispose dosage form and packaging appropriately. Medication Applied 11/20/2022 9:00 AM CDT 21 mg Left Arm Medication Applied 11/19/2022 10:08 AM CDT 21 mg Right Arm Medication Applied 11/18/2022 10:00 AM CDT 21 mg Right Arm oxyCODONE (ROXICODONE) immediate release tablet 5 mg 5 mg, Oral, Every 4 hours PRN, Starting on Wed10/28/22 at 2111, Until Wed11/03/22 at 1200, moderate pain, severe pain, MIld, Moderate, Severe pain, Indications: Acute PainIndications:Acute Pain Given 11/03/2022 8:35 AM CDT 5 mg Given 11/02/2022 8:49 AM CDT 5 mg Given 11/01/2022 6:05 PM CDT 5 mg oxyCODONE (ROXICODONE) immediate release tablet 5 mg 5 mg, Oral, Every 4 hours PRN, Starting on Wed11/03/22 at 1200, Until Wed11/20/22 at 2114, severe pain, MIld, Moderate, Severe pain, Indications: Acute PainIndications:Acute Pain Given 11/19/2022 3:19 AM CDT 5 mg Given 11/17/2022 2:30 PM CDT 5 mg Given 11/17/2022 9:45 AM CDT 5 mg polyethylene glycol (MIRALAX) packet 17 g 17 g, Oral, 2 times daily PRN, Starting on Wed11/04/22 at 0613, Until Wed11/20/22 at 211, constipation, Dilute/Mix with 4-8 oz fluid for administration. Given 11/04/2022 9:59 PM CDT 17 g rosuvastatin (CRESTOR) tablet 40 mg 40 mg, Oral, Daily, First dose (after last modification) on Wed10/29/22 at 0900, Until Discontinued, DO NOT SUBSTITUTE Given 11/20/2022 8:47 AM CDT 40 mg Given 11/19/2022 10:09 AM CDT 40 mg Given 11/18/2022 8:57 AM CDT 40 mg simethicone (MYLICON) chewable tablet 80 mg 80 mg, Oral, 4 times daily PRN, Starting on Wed10/28/22 at 2111, Until Wed11/20/22 at 2114, flatulence Given 10/31/2022 6:18 PM CDT 80 mg sodium chloride 0.9 % infusion 500 mL 500 mL, Intravenous, at 491.8 mL/hr, Administer over 61 Minutes, Once, 1 dose, On Wed10/29/22 at 0815 New Bag 10/29/2022 11:57 AM CDT 500 mL 491.8 mL/hr sodium chloride 0.9 % infusion 100 mL/hr, Intravenous (Continuous Infusion), Continuous, Starting on Wed10/29/22 at 0815, Until Wed11/06/22 at 1228, Following bolus infusion. Rate/Dose Verify 11/06/2022 9:26 AM CDT 100 mL/hr 100 mL/hr Rate/Dose Verify 11/06/2022 5:53 AM CDT 100 mL/hr 100 mL/ hr New Bag 11/06/2022 3:31 AM CDT 100 mL/hr 100 mL/hr sodium chloride 0.9 % infusion 75 mL/hr, Intravenous (Continuous Infusion), Continuous, Starting on Wed11/18/22 at 0545, Until Wed11/19/22 at 2310, For 1 Liter Rate/Dose Verify 11/18/2022 8:05 PM CDT 75 mL/hr 75 mL/hr Rate/Dose Verify 11/18/2022 4:45 PM CDT 75 mL/hr 75 mL/h r Rate/Dose Verify 11/18/2022 2:38 PM CDT 75 mL/hr 75 mL/h r Sodium Zirconium Cyclosilicate (LOKELMA) 5 g suspension 10 g 10 g, Oral, Once, 1 dose, On Wed11/17/22 at 1415, Mix contents of 1 packet with a minimum of 45 mL of water. Stir well and administer immediately; if powder remains in the glass, add water, stir, and administer immediately; repeat until no powder remains. Administer other oral medications >=2 hours before or 2 hours after dose. Given 11/17/2022 2:19 PM CDT 10 g Sodium Zirconium Cyclosilicate (LOKELMA) 5 g suspension 15 g 15 g, Oral, Once, 1 dose, On Wed11/18/22 at 0615, Mix contents of 1 packet with a minimum of 45 mL of water. Stir well and administer immediately; if powder remains in the glass, add water, stir, and administer immediately; repeat until no powder remains. Administer other oral medications >=2 hours before or 2 hours after dose. Given 11/18/2022 6:09 AM CDT 15 g tamsulosin (FLOMAX) 24 hr capsule 0.4 mg 0.4 mg, Oral, After breakfast, First dose (after last modification) on Wed10/29/22 at 0800, Until Discontinued Given 11/20/2022 8:46 AM CDT 0.4 mg Given 11/19/2022 10:10 AM CDT 0.4 mg Given 11/18/2022 8:57 AM CDT 0.4 mg Umeclidinium [place] (INCRUSE ELLIPTA) 62.5 MCG/ACT inhaler 62.5 mcg 62.5 mcg (1 puff), Inhalation, RT Daily, First dose on Wed10/29/22 at 0800, Until Discontinued, Rinse mouth with water and spit after each use. Spiriva has been substituted per Therapeutic Interchange Policy to Incruse equivalent dose. Do not shake. Given 11/20/2022 8:51 AM CDT 62.5 mcg Given 11/19/2022 10:13 AM CDT 62.5 mcg Given 11/18/2022 8:56 AM CDT 62.5 mcg documented in this encounter Active and Recently Administered Medications Times are shown in CDT. Scheduled Medication Order 11/18/2022 11/19/2022 11/20/2022 acetaminophen (TYLENOL) tablet 650 mg 650 mg, Oral, Every 8 hours, First dose (after last modification) on Wed10/28/22 at 2200, Until Discontinued 0501 (Given - Provider: Hardeep Darby RN)131 (Given - Provider: Love Sellers RN)2136 (Given - Provider: Hardeep Darby RN) 0540 (Given - Provider: Hardeep Darby RN)141 (Given - Provider: Robert Joseph RN)215 (Given - Provider: Hardeep Darby RN) 0541 (Given - Provider: Hardeep Darby RN)1410 (Given - Provider: Tania Pena RN) aspirin EC tablet 81 mg 81 mg, Oral, Daily, First dose on Wed10/29/22 at 0900, Until Discontinued, DO NOT CRUSH, CUT, OR CHEW., Indications: Coronary Arteriosclerosis 0858 (Given - Provider: Love Sellers RN) 1010 (Given - Provider: Robert Joseph RN) 0846 (Given - Provider: Tania Pena, AGGIE) bisacodyl (DULCOLAX) suppository 10 mg (COMPLETED) 10 mg, Rectal, Once, 1 dose, On Wed11/18/22 at 1000 1003 (Given - Provider: Love Sellers RN) brimonidine (ALPHAGAN) 0.2 % ophthalmic solution 1 drop 1 drop, Both Eyes, 3 times daily (3 times per day), First dose on Wed11/08/22 at 1500, Until Discontinued 0858 (Given - Provider: Loev Sellers RN)1452 (Given - Provider: Love Sellers RN)2000 (Given - Provider: Hardeep Darby, AGGIE) 1014 (Given - Provider: Robert Joseph RN)1421 (Given - Provider: Robert Joseph RN)2002 (Given - Provider: Hardeep Darby, RN) 0852 (Given - Provider: Tania Pena, AGGIE)1418 (Given - Provider: Tania Pena RN)2100 (Canceled Entry - Provider: Automatic Discharge Provider - Comment: Automatically canceled at discontinue of medication order) carvedilol (COREG) tablet 3.125 mg (CANCELED) 3.125 mg, Oral, 2 times daily with meals (2 times per day), First dose on Wed10/31/22 at 0800, Until Discontinued, Hold if pulse < 60 0857 (Given - Provider: Love Sellers RN) carvedilol (COREG) tablet 3.125 mg 3.125 mg, Oral, 2 times daily with meals (2 times per day), First dose (after last modification) on Wed11/18/22 at 1700, Until Discontinued, Hold if pulse < 60 , Hold if SBP (mmHg) less than: if less than 110 1649 (Not Given - Provider: Love Sellers RN - Reason: Order parameters not met) 1010 (Given - Provider: Robert Joseph RN)1651 (Not Given - Provider: Robert Joseph RN - Reason: Order parameters not met - Comment: HR = 58BP = 115/69) 0845 (Given - Provider: Tania Pena RN)1612 (Given - Provider: Tania Pena, RN) Check Patch Placement(Linked Group 1) Transdermal, 2 times daily (2 times per day), First dose on Wed10/29/22 at 0900, Until Discontinued 1001 (Check Patch Placement - Provider: Love Sellers RN)2006 (Check Patch Placement - Provider: Hardeep Darby, AGGIE) 101 (Check Patch Placement - Provider: Robert Joseph RN)2005 (Check Patch Placement - Provider: Hardeep Darby RN) 09 (Check Patch Placement - Provider: Tania Pena, RN)2100 (Canceled Entry - Provider: Automatic Discharge Provider - Comment: Automatically canceled at discontinue of medication order) clopidogrel (PLAVIX) tablet 75 mg 75 mg, Oral, Daily, 81 doses, First dose (after last modification) on Amira 10/29/22 at 0900, Last dose on Wed01/17/23 at 0900, Indications: Coronary Arteriosclerosis, Ischemic Stroke, Percutaneous Coronary Intervention 0857 (Given - Provider: Love Sellers RN) 1010 (Given - Provider: Robert Joseph RN) 0846 (Given - Provider: Tania Pena, AGGIE) Fluticasone-Salmeterol (AIRDUO RESPICLICK) 232-14 MCG/ACT inhaler 1 puff 1 puff, Inhalation, RT 2 times daily, First dose (after last modification) on Wed10/28/22 at 2130, Until Discontinued, Symbicort has been substituted per Therapeutic Interchange Policy to AirDuo equivalent dose. 0858 (Given - Provider: Love Sellers RN)1957 (Given - Provider: Hardeep Darby, AGGIE) 101 (Given - Provider: Robert Joseph, AGGIE)1958 (Given - Provider: Hardeep Darby, AGGIE) 0851 (Given - Provider: Tania Pena, AGGIE)1999 (Canceled Entry - Provider: Automatic Discharge Provider - Comment: Automatically canceled at discontinue of medication order) gabapentin (NEURONTIN) capsule 200 mg 200 mg, Oral, 3 times daily (3 times per day), First dose (after last modification) on Wed10/28/22 at 2130, Until Discontinued 0857 (Given - Provider: Love Sellers RN)1452 (Given - Provider: Love Sellers RN)2001 (Given - Provider: Hardeep aDrby RN) 1008 (Given - Provider: Robert Joseph RN)1419 (Given - Provider: Robert Joseph RN)2000 (Given - Provider: Hardeep Darby RN) 0846 (Given - Provider: Tania Pena, RN)1416 (Given - Provider: Tania Pena RN)2100 (Canceled Entry - Provider: Automatic Discharge Provider - Comment: Automatically canceled at discontinue of medication order) glipiZIDE (GLUCOTROL) tablet 5 mg 5 mg, Oral, Daily, First dose on Wed11/02/22 at 0900, Until Discontinued, Indications: Type 2 Diabetes Mellitus 0857 (Given - Provider: Love Sellers RN) 1009 (Given - Provider: Robert Joseph RN) 0846 (Given - Provider: Tania Pena RN) heparin (porcine) injection 5,000 Units 5,000 Units, Subcutaneous, Every 8 hours, First dose (after last modification) on Wed10/28/22 at 2200, Until Discontinued, Indications: Deep Vein Thrombosis Prophylaxis 0501 (Given - Provider: Hardeep Darby RN)1312 (Given - Provider: Love Sellers RN)2137 (Given - Provider: Hardeep Darby RN) 0539 (Given - Provider: Hardeep Darby RN)1420 (Given - Provider: Robert Joseph RN)2154 (Given - Provider: Hardeep Darby RN) 0541 (Given - Provider: Hardeep Darby RN)1411 (Given - Provider: Tania Pena RN) ketoconazole (NIZORAL) 2 % cream Topical, Daily, First dose on Wed11/04/22 at 0900, Until Discontinued, To bottom of feet daily 0858 (Given - Provider: Love Sellers RN) 1013 (Given - Provider: Robert Joseph RN) 0851 (Given - Provider: Tania Pena, AGGIE) lidocaine (LIDOCARE) 4 % patch 3 patch 3 patch, Transdermal, Administer over 12 Hours, Daily, First dose (after last modification) on Wed11/04/22 at 1145, Until Discontinued, Apply to LOWER BACK. May cut patches if needed. Remove patch after 12 hours. 0859 (Medication Applied - Provider: Love Sellers RN)2006 (Medication Removed - Provider: Hardeep Darby RN) 101 (Medication Applied - Provider: Robert Joseph RN)215 (Medication Removed - Provider: Hardeep Darby, RN) 0847 (Not Given - Provider: Tania Pena, AGGIE - Reason: Patient/family refused) melatonin tablet 9 mg 9 mg, Oral, Nightly, First dose on Wed10/28/22 at 2130, Until Discontinued 2001 (Given - Provider: Hardeep Darby, AGGIE) 1999 (Given - Provider: Hardeep Darby, AGGIE) 2030 (Canceled Entry - Provider: Automatic Discharge Provider - Comment: Automatically canceled at discontinue of medication order) muscle rub (ICY HOT) 10-15 % cream Topical, 2 times daily (2 times per day), First dose on Wed11/09/22 at 2100, Until Discontinued 08 (Given - Provider: Love Sellers RN)2000 (Given - Provider: Hardeep Darby RN) 1013 (Given - Provider: Robert Joseph, AGGIE)2002 (Given - Provider: Hardeep Darby, AGGIE) 0852 (Given - Provider: Tania Pena, AGGIE)2100 (Canceled Entry - Provider: Automatic Discharge Provider - Comment: Automatically canceled at discontinue of medication order) nicotine (NICODERM CQ) patch 21 mg(Linked Group 1) 21 mg, Transdermal, Administer over 24 Hours, Daily, First dose on Wed10/29/22 at 0900, Until Discontinued, Hazardous waste (p-listed) Dispose of wrapper and any unused medication appropriately Dispose dosage form and packaging appropriately. 0901 (Medication Removed - Provider: Love Sellers RN)1000 (Medication Applied - Provider: Love Sellers RN) 1008 (Medication Applied - Provider: Robert Joseph RN)1012 (Medication Removed - Provider: Robert Joseph RN) 0846 (Medication Removed - Provider: Tania Pena, AGGIE)0900 (Medication Applied - Provider: Tania Pena RN)1912 (Due: Medication Removed - Provider: Automatic Discharge Provider - Comment: Time automatically adjusted from order being discontinued) rosuvastatin (CRESTOR) tablet 40 mg 40 mg, Oral, Daily, First dose (after last modification) on Wed10/29/22 at 0900, Until Discontinued, DO NOT SUBSTITUTE 0857 (Given - Provider: Love Sellers RN) 1009 (Given - Provider: Robert Joseph RN) 0847 (Given - Provider: Tania Pena, RN) Sodium Zirconium Cyclosilicate (LOKELMA) 5 g suspension 15 g (COMPLETED) 15 g, Oral, Once, 1 dose, On Wed11/18/22 at 0615, Mix contents of 1 packet with a minimum of 45 mL of water. Stir well and administer immediately; if powder remains in the glass, add water, stir, and administer immediately; repeat until no powder remains. Administer other oral medications >=2 hours before or 2 hours after dose. 0609 (Given - Provider: Hardeep Darby RN) tamsulosin (FLOMAX) 24 hr capsule 0.4 mg 0.4 mg, Oral, After breakfast, First dose (after last modification) on Wed10/29/22 at 0800, Until Discontinued 0857 (Given - Provider: Love Sellers RN) 1010 (Given - Provider: Robert Joseph RN) 0846 (Given - Provider: Tania Pena, AGGIE) Umeclidinium [place] (INCRUSE ELLIPTA) 62.5 MCG/ACT inhaler 62.5 mcg 62.5 mcg (1 puff), Inhalation, RT Daily, First dose on Wed10/29/22 at 0800, Until Discontinued, Rinse mouth with water and spit after each use. Spiriva has been substituted per Therapeutic Interchange Policy to Incruse equivalent dose. Do not shake. 0856 (Given - Provider: Love Sellers RN) 1013 (Given - Provider: Robert Joseph RN) 0851 (Given - Provider: Tania Pena, AGGIE) Continuous Medication Order 11/18/2022 11/19/2022 11/20/2022 sodium chloride 0.9 % infusion (CANCELED) 75 mL/hr, Intravenous (Continuous Infusion), Continuous, Starting on Wed11/18/22 at 0545, Until Wed11/19/22 at 2310, For 1 Liter 0609 (New Bag - Provider: Hardeep Darby, RN)0812 (Rate/Dose Verify - Provider: Love Sellers, AGGIE)1015 (Rate/Dose Verify - Provider: Love Sellers RN)1235 (Rate/Dose Verify - Provider: Love Sellers, RN)1438 (Rate/Dose Verify - Provider: Love Sellers, RN)1645 (Rate/Dose Verify - Provider: Love Sellers, RN)2004 (Rate/Dose Verify - Provider: Hardeep Darby, RN)2049 (Stopped - Provider: Hardeep Darby, AGGIE) PRN Medication Order 11/18/2022 11/19/2022 11/20/2022 bismuth subsalicylate (PEPTO BISMOL) 262 MG/15ML suspension 30 mL 30 mL, Oral, Every 6 hours PRN, Starting on Wed10/28/22 at 2111, Until Wed11/20/22 at 2114, for Diarrhea cyclobenzaprine (FLEXERIL) tablet 5 mg 5 mg, Oral, 3 times daily PRN, Starting on Wed11/01/22 at 1354, Until Wed11/20/22 at 2114, muscle spasms 1311 (Given - Provider: Love Sellers RN) dextrose (GLUTOSE) 40 % oral gel 15 g 15 g, Oral, As needed, Starting on Wed10/28/22 at 2111, Until Wed11/20/22 at 2114, blood sugar < 70 mg/dL, If patient is alert and taking food/drink PO or per gastric tube: a. Give patient ONE of the following: i. 4 ounces (1/2 cup) apple juice or non-diet carbonated beverage ii. 15 grams of glucose gel b. blood glucose remains less than 70 mg/dl after two treatments or meal time is more than one hour away, give patient ONE of the following. i. 8 ounces (1 cup) of skim milk ii. One serving of fruit and protein (i.e. juice, cheese, etc.) iii. One serving of bread and protein (i.e. peanut butter and crackers) c. Call LIP to notify with patient response prior to administering any further insulin or oral hypoglycemia agents., Indications: Hypoglycemia dextrose 50 % IV solution 12.5 g(Linked Group 2) 12.5 g, Intravenous, at 500 mL/hr, Administer over 3 Minutes, As needed, Starting on Wed10/28/22 at 2110, Until Wed11/20/22 at 2113, hypoglycemia, blood sugar 50-69mg/dL, If Patient is Alert, NPO and has IV access: a. If blood glucose 50 - 69 mg/dL, give patient 12.5 g of Dextrose IV push over 3 minutes. b. If blood glucose < 50 mg/dL, give patient 25 g of Dextrose IV push over 3 minutes. c. Start IV D5-0.45% saline at 50 ml/hr. For renal patients start IV D5W at 50 Ml/hr. d. Call LIP to notify of protocol initiation and patient response to treatment. If Patient is unresponsive with IV access: a. See PEDIATRICIAN/MEDICAL DOCTOR Protocol approved by your Medical staff, or b. If blood glucose 50 - 69 mg/dL, give patient 12.5 g of Dextrose IV push over 3 minutes. c. If blood glucose < 50 mg/dL, give patient 25 g of Dextrose IV push over 3 minutes. d. Start IV D5-0.45% saline at 50 ml/hr. For renal patients start IV D5W at 50 Ml/hr. e. Call LIP to notify of protocol initiation and patient response to treatment., Indications: Hypoglycemia dextrose 50 % IV solution 25 g(Linked Group 2) 25 g, Intravenous, at 1,000 mL/hr, Administer over 3 Minutes, As needed, Starting on Wed10/28/22 at 2110, Until Wed11/20/22 at 2113, hypoglycemia, blood sugar < 50mg/dL, If Patient is Alert, NPO and has IV access: a. If blood glucose 50 - 69 mg/dL, give patient 12.5 g of Dextrose IV push over 3 minutes. b. If blood glucose < 50 mg/dL, give patient 25 g of Dextrose IV push over 3 minutes. c. Start IV D5-0.45% saline at 50 ml/hr. For renal patients start IV D5W at 50 Ml/hr. d. Call LIP to notify of protocol initiation and patient response to treatment. If Patient is unresponsive with IV access: a. See PEDIATRICIAN/MEDICAL DOCTOR Protocol approved by your Medical staff, or b. If blood glucose 50 - 69 mg/dL, give patient 12.5 g of Dextrose IV push over 3 minutes. c. If blood glucose < 50 mg/dL, give patient 25 g of Dextrose IV push over 3 minutes. d. Start IV D5-0.45% saline at 50 ml/hr. For renal patients start IV D5W at 50 Ml/hr. e. Call LIP to notify of protocol initiation and patient response to treatment., Indications: Hypoglycemia glucagon injection reconstituted solution 1 mg 1 mg, Intramuscular, As needed, Starting on Wed10/28/22 at 2111, Until Wed11/20/22 at 2113, emergency hypoglycemia, other routes not available, if no IV access, If patient is unresponsive and has no IV access a. Give Glucagon 1 mg IM (give immediately do not wait for IV access). b. Place IV and start IV D5-0.45% saline at 50 ml/hr when IV can be started. For renal patients start IV D5W at 50 ml/hr. c. Call LIP to notify of protocol initiation and patient response to treatment., Indications: Hypoglycemia hemorrhoidal ointment Apply externally, 3 times daily PRN, Starting on Wed10/29/22 at 0839, Until Wed11/20/22 at 2113, hemorrhoids, Apply to hemorrhoids. ipratropium-albuterol (DUO-NEB) 0.5-2.5 mg/3 mL nebulizer solution 3 mL 3 mL, Inhalation, RT Every 4 hours PRN, Starting on Wed10/28/22 at 2111, Until Wed11/20/22 at 2113, shortness of breath, wheezing midodrine (PROAMATINE) tablet 5 mg 5 mg, Oral, Every 8 hours PRN, Starting on Wed11/16/22 at 1045, Until Wed11/20/22 at 2113, SBP less than 90 oxyCODONE (ROXICODONE) immediate release tablet 5 mg 5 mg, Oral, Every 4 hours PRN, Starting on Wed11/03/22 at 1200, Until Wed11/20/22 at 2113, severe pain, MIld, Moderate, Severe pain, Indications: Acute Pain 0319 (Given - Provider: Hardeep Darby RN) polyethylene glycol (MIRALAX) packet 17 g 17 g, Oral, 2 times daily PRN, Starting on Wed11/04/22 at 0613, Until Wed11/20/22 at 2113, constipation, Dilute/Mix with 4-8 oz fluid for administration. simethicone (MYLICON) chewable tablet 80 mg 80 mg, Oral, 4 times daily PRN, Starting on Wed10/28/22 at 211, Until Wed11/20/22 at 2113, flatulence Linked Groups Order Group 1: nicotine (NICODERM CQ) patch 21 mgJump to med 21 mg, Transdermal, Administer over 24 Hours, Daily, First dose on Wed10/29/22 at 0900, Until Discontinued, Hazardous waste (p-listed) Dispose of wrapper and any unused medication appropriately Dispose dosage form and packaging appropriately. And Check Patch PlacementJump to med Transdermal, 2 times daily (2 times per day), First dose on Wed10/29/22 at 0900, Until Discontinued Group 2: dextrose 50 % IV solution 12.5 gJump to med 12.5 g, Intravenous, at 500 mL/hr, Administer over 3 Minutes, As needed, Starting on Wed10/28/22 at 2110, Until Wed11/20/22 at 2113, hypoglycemia, blood sugar 50- 69mg/dL, If Patient is Alert, NPO and has IV access: a. If blood glucose 50 - 69 mg/dL, give patient 12.5 g of Dextrose IV push over 3 minutes. b. If blood glucose < 50 mg/dL, give patient 25 g of Dextrose IV push over 3 minutes. c. Start IV D5-0.45% saline at 50 ml/hr. For renal patients start IV D5W at 50 Ml/hr. d. Call LIP to notify of protocol initiation and patient response to treatment. If Patient is unresponsive with IV access: a. See PEDIATRICIAN/MEDICAL DOCTOR Protocol approved by your Medical staff, or b. If blood glucose 50 - 69 mg/dL, give patient 12.5 g of Dextrose IV push over 3 minutes. c. If blood glucose < 50 mg/dL, give patient 25 g of Dextrose IV push over 3 minutes. d. Start IV D5-0.45% saline at 50 ml/hr. For renal patients start IV D5W at 50 Ml/hr. e. Call LIP to notify of protocol initiation and patient response to treatment., Indications: Hypoglycemia Or dextrose 50 % IV solution 25 gJump to med 25 g, Intravenous, at 1,000 mL/hr, Administer over 3 Minutes, As needed, Starting on Wed10/28/22 at 2111, Until Wed11/20/22 at 2114, hypoglycemia, blood sugar < 50mg/dL, If Patient is Alert, NPO and has IV access: a. If blood glucose 50 - 69 mg/dL, give patient 12.5 g of Dextrose IV push over 3 minutes. b. If blood glucose < 50 mg/dL, give patient 25 g of Dextrose IV push over 3 minutes. c. Start IV D5-0.45% saline at 50 ml/hr. For renal patients start IV D5W at 50 Ml/hr. d. Call LIP to notify of protocol initiation and patient response to treatment. If Patient is unresponsive with IV access: a. See PEDIATRICIAN/MEDICAL DOCTOR Protocol approved by your Medical staff, or b. If blood glucose 50 - 69 mg/dL, give patient 12.5 g of Dextrose IV push over 3 minutes. c. If blood glucose < 50 mg/dL, give patient 25 g of Dextrose IV push over 3 minutes. d. Start IV D5-0.45% saline at 50 ml/hr. For renal patients start IV D5W at 50 Ml/hr. e. Call LIP to notify of protocol initiation and patient response to treatment., Indications: Hypoglycemia documented in this encounter
== END 2024-05-20 19:39 | DRG 190 ==
LOC: ANHED 13:59 → ANH3MEDSUR 17:21
PROVIDERS: Student in an Organized Health Care Education/Training Program; Admitting Provider General Practice; Emergency Provider Student in an Organized Health Care Education/Training Program; Visit Provider Internal Medicine
DX: J44.1 Chronic obstructive pulmonary disease with (acute) exacerbation (principal); J96.01 Acute respiratory failure with hypoxia; I69.354 Hemiplegia and hemiparesis following cerebral infarction affecting left non-dominant side; I25.10 Atherosclerotic heart disease of native coronary artery without angina pectoris; I10 Essential (primary) hypertension; E11.9 Type 2 diabetes mellitus without complications; N40.0 Benign prostatic hyperplasia without lower urinary tract symptoms; G47.33 Obstructive sleep apnea (adult) (pediatric); F17.210 Nicotine dependence, cigarettes, uncomplicated; Z20.822 Contact with and (suspected) exposure to COVID-19; Z11.52 Encounter for screening for COVID-19; Z79.82 Long term (current) use of aspirin; Z95.5 Presence of coronary angioplasty implant and graft; Z74.01 Bed confinement status
CPT/HCPCS: 36415; 71046; 71275; 80053; 82948; 83735; 83880; 84484; 85025; 87635; 87637; 93005; 94640; 96365; 96375; 99285; A9270; J1650; J1815; J2919; J3475; J7030; J7512; Q9967

== ENCOUNTER 2024-07-12 03:02 | Emergency (ER) | payer MEDICARE, MEDICAID, SELFPAY ==
--- NOTE | ~2024-07-12 | CT_ITS ---
CT of the Abdomen and Pelvis: Indication: Abdominal pain Technique: 2.5 mm axial scans were obtained through the abdomen and pelvis following intravenous adm inistration of 100 cc of Omnipaque 350. Dose reduction technique was used on this scan by utilizing a utomated exposure control and iterative reconstruction technique. The dose-length product (DLP) was 1 626.84 mGy-cm. COMPARISON: 11/07/2023 Findings: Scans through the lung bases demonstrate mild bibasilar atelectatic changes. The liver, spleen, pancreas, gallbladder, and adrenal glands are within normal limits. Bilateral nono bstructing renal stones are present, largest at the left lower pole measuring 11 mm. There is a 2-3 m m stone at the right UVJ, with probable mild right hydroureteronephrosis. No left ureteral stone or l eft hydronephrosis. There are atherosclerotic calcifications of the aorta. No lymphadenopathy. No bowel obstruction or bowel wall thickening. There is no evidence to suggest acute appendicitis. Images through the pelvis were performed. Urinary bladder otherwise unremarkable. No pelvic mass seen . No ascites. Impression: 2-3 mm right UVJ stone, with mild right hydroureteronephrosis. Additional bilateral nonobstructing renal stones, as above. Reviewed, dictated and finalized at location M. ING PRESS OPERATOR Impression: 2-3 mm right UVJ stone, with mild right hydroureteronephrosis. Additional bilateral nonobstructing renal stones, as above.
[2024-07-12 03:14] VITALS: BP 143/63; PULSE 50; RESP 13; TEMP 36.4; O2SAT 97
[2024-07-12 03:20] VITALS: BP 143/63; PULSE 50; RESP 13; TEMP 36.4; O2SAT 97
--- NOTE | 2024-07-12 03:20 | ECG_ITS ---
Test Date: 2024-07-12 03:17:59 Measurements Intervals [place] Rate: 49 P: 60 FL: 228 QRS: -14 QRSD: 89 T: 71 QT: 448 QTc: 407 Interpretive Statements SINUS BRADYCARDIA WITH FIRST DEGREE AV BLOCK ANTEROSEPTAL MYOCARDIAL INFARCTION , OF INDETERMINATE AGE [40+ ms Q WAVE IN V1-V4] Compared to ECG 05/15/2024 15:47:49 NO SIGNIFICANT CHANGES Electronically Signed On 07-12-2024 13:20:21 INSIDE CHANNEL ACCOUNT MANAGER by Cheyanne Díaz M.D.
[2024-07-12] MEDS: SODIUM CHLORIDE 0.9% IV 1,000 ML 999 ML IV CONT (03:29)
[2024-07-12] MEDS: ONDANSETRON INJ 4 MG/2 ML VIAL IV PUSH (03:29)
[2024-07-12 03:34] LABS: Basophils Percent Auto 0.5 % (0.2-1.2); Eosinophils Absolute Auto 0.3 K/mm3 (0-0.3); Eosinophils Percent Auto 4.5 % (0-4.4); Hematocrit 34.8 % (42.0-52.0); Hemoglobin 11.1 g/dL (14.0-18.0); Immature Granulocyte Absolute 0.03 K/mm3 (0.00-0.031); Immature Granulocyte Percent A 0.4 % (0-0.5); Lymphocytes Absolute Auto 1.12 K/mm3 (0.9-3.2); Lymphocytes Percent Auto 14.8 % (18.3-44.2); Mean Corpuscular HGB Conc 31.9 g/dl (32-36); Mean Corpuscular Hemoglobin 28.7 pg (26-34); Mean Corpuscular Volume 89.9 fl (80-100); Mean Platelet Volume 8.8 fl (7.4-10.4); Monocytes Absolute Auto 0.4 K/mm3 (0.1-0.6); Monocytes Percent Auto 5.8 % (2.6-8.5); Neutrophils Absolute Auto 5.6 K/mm3 (1.3-6.7); Platelet Count Result 172 k/mm3 (150-375); Red Blood Count 3.87 M/mm3 (4.6-6.20); Red Cell Distribution Width 13.9 % (11.5-14.5); White Blood Count 7.6 K/mm3 (4.5-10.0)
[2024-07-12 03:47] LABS: Prothrombin Time 13.7 Seconds (11.1-14.7)
[2024-07-12 03:48] LABS: Partial Thromboplastin Time 32.4 Seconds (22.3-36.8)
[2024-07-12 03:49] LABS: Add Urine Microscopic? YES; Alanine Aminotransferase 17 U/L (6-50); Albumin Level 3.7 g/dL (3.5-5.1); Alkaline Phosphatase 75 U/L (38-126); Anion Gap 6 mmol/L (4-12); Appearance Urine Clear (Clear); Aspartate Amino Transferase 19 U/L (17-59); Bacteria Urine None Seen /hpf; Bilirubin Urine Negative (Negative); Bilirubin,Total 0.7 mg/dL (0.2-1.3); Blood Urea Nitrogen 23 mg/dL (9-20); Blood Urine 3+ (Negative); Calcium 9.1 mg/dL (8.4-10.2); Carbon Dioxide 33 mmol/L (22-30); Chloride 101 mmol/L (98-107); Color Urine Yellow (Yellow); Estimated CRCL calculation 70 ml/min; Estimated Glomerular Filt Rate > 60; Glucose 149 mg/dL (65-110); Glucose Urine UA Negative (Negative); Ketones Urine Negative (Negative); Lactic Acid Reflex 0.7 mmol/L (0.7-2.0); Leukocyte Esterase Ur Negative LEU/UL (Negative); Magnesium 1.7 mg/dL (1.6-2.3); Nitrate Urine Negative (Negative); Non Pathogenic Casts 0-2; Potassium 4.5 mmol/L (3.4-5.0); Protein Urine Trace mg/dL (Negative); RBC Urine >100 /hpf (0-2); Sodium 140 mmol/L (137-145); Specific Grav Ur 1.015 (1.001-1.035); Squamous Epithelial Cell Urine None Seen /hpf (Few); WBC Urine 0-5 /hpf (0-3); pH Urine 5.5 (5.0-9.0)
[2024-07-12 04:00] LABS: Troponin I < 0.012 ng/mL (0.000-0.034)
--- NOTE | 2024-07-12 04:17 | ED_ITS ---
HPI - General Adult General Chief complaint: Abdominal Pain Stated complaint: ABD PAIN, N/V Time Seen by Provider: 07/12/24 03:12 History of Present Illness HPI narrative: Patient is a 68-year-old gentleman who presents emergency department with chief complaint of abdominal pain nausea and vomiting the patient states he has had pain and back reports symptoms started after he had dinner this evening patient states he has had pain like this before any of small-bowel obstruction the patient states that he has had abdominal surgery done to be a previously. Patient has prior history of CVA and has chronic left-sided deficits Related Data Home Medications ?Medication ?Instructions ?Recorded ?Confirmed ?Last Taken ?Type acetaminophen 325 mg tablet 650 mg PO Q8H PRN Pain, Mild 11/07/23 05/16/24 Unknown History albuterol sulfate 90 mcg/actuation 2 puff inhalation Q4H PRN Wheezing 11/07/23 05/16/24 Unknown History aerosol inhaler albuterol sulfate 90 mcg/actuation 2 puff inhalation Q6H PRN Wheezing 11/07/23 05/16/24 Unknown History aerosol inhaler aspirin 81 mg tablet,delayed 81 mg PO DAILY 11/07/23 05/16/24 11/06/23 History release cabergoline 0.5 mg tablet 0.5 mg PO 2XW 11/07/23 05/16/24 11/05/23 History carboxymethylcellulose sodium 0.5 1 drp EACH EYE QID PRN Dry Eyes 11/07/23 05/16/24 Unknown History % eye drops in a dropperette (Refresh Plus) carvedilol 3.125 mg tablet 3.125 mg PO BID 11/07/23 05/16/24 11/06/23 History dextromethorphan-guaifenesin 10 10 ml PO Q4-6H PRN Cough 11/07/23 05/16/24 Unknown History mg-100 mg/5 mL oral syrup escitalopram oxalate 20 mg tablet 20 mg PO QAM 11/07/23 05/16/24 11/07/23 History gabapentin 100 mg capsule 100 mg PO TID 11/07/23 05/18/24 11/06/23 History glipizide 5 mg tablet 5 mg PO QAM 11/07/23 05/16/24 11/06/23 History loperamide 2 mg capsule 2 mg PO Q6H PRN Diarrhea 11/07/23 05/16/24 Unknown History (Anti-Diarrheal (loperamide)) melatonin 5 mg tablet 5 mg PO HS 11/07/23 05/16/24 11/06/23 History ondansetron 4 mg disintegrating 4 mg PO Q4H PRN Nausea And Vomiting 11/07/23 05/16/24 Unknown History tablet rosuvastatin 40 mg tablet 40 mg PO QHS 11/07/23 05/16/24 11/06/23 History sennosides 8.6 mg tablet (Senokot) 8.6 mg PO PRN PRN Constipation 11/07/23 05/16/24 Unknown History tamsulosin 0.4 mg capsule 0.4 mg PO QAM 11/07/23 05/16/24 11/06/23 History tiotropium bromide 2.5 2 puff inhalation QAM 11/07/23 05/16/24 11/06/23 History mcg/actuation mist for inhalation (Spiriva Respimat) benzonatate 100 mg capsule 100 mg PO TID PRN cough 05/16/24 05/16/24 Unknown History brinzolamide 1 %-brimonidine 0.2 % 1 drp EACH EYE TID 05/18/24 05/18/24 Unknown History eye drops,suspension (Simbrinza) budesonide 160 mcg-glycopyr 9 2 inh inhalation BID 05/18/24 05/18/24 Unknown History mcg-formot 4.8 mcg/actuation HFA inhaler (Breztri Aerosphere) oxycodone 5 mg tablet 5 mg PO Q8H PRN pain 05/18/24 05/18/24 Unknown History Allergies Allergy/AdvReac Type Severity Reaction Status Date / Time hydralazine AdvReac Vomiting Verified 02/08/24 11:36 lisinopril AdvReac Rash Verified 02/08/24 11:36 metformin AdvReac Diarrhea Verified 02/08/24 11:36 pioglitazone AdvReac Nausea Verified 02/08/24 11:36 simvastatin AdvReac Rash Verified 02/08/24 11:36 Review of Systems 2 Review of Systems: A 10 system review of systems was completed on the patient and is negative except for what is stated in the HPI. Nursing and ancillary documentation was reviewed. [facility] Past Medical History Medical History Coronary artery disease Benign prostatic hyperplasia Tobacco abuse Chronic obstructive pulmonary disease Obstructive sleep apnea Intolerant of CPAP Hypertension Type 2 diabetes mellitus Cerebrovascular accident Surgical History Surgical History History of coronary artery stent placement History of cardiac catheterization History of partial colectomy Family History Family History Other Family history non-contributory Social History Social History Social History: Surrogate medical decision maker: Clarita Hobbs, mother. Code status: Full code. Years smoked: 55 Smoking status: Current every day smoker Tobacco type: cigarettes Alcohol intake: former Substance use: never Do You Feel Safe in your Home?: No Lack of Transportation: YES Lack of Food: Never True Current Housing: I Have Housing Concerned About Future Housing: No Difficulty Paying Gas/Electric Bills: No Difficulty Paying for Meds: No Currently Unemployed: No Education: Decline to Answer Difficulty w/ Childcare or Family Care: No Additional living arrangements comments: Resident at [facility]. 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 Spiritual care concerns: No Exam 2 Narrative: GENERAL: Well-appearing, well-nourished, and in no acute distress. HEAD: Normocephalic, atraumatic. EYES: PERRLA and EOMI. ENT: Nares clear, no rhinorrhea or epistaxis. Mucous membranes moist. NECK: Supple. CHEST: Clear to auscultation. No respiratory distress. HEART: Regular rate and rhythm. No murmur heard. Normal peripheral pulses. ABDOMEN: Soft, diffusely tender to palpation, nondistended, normal active bowel sounds. EXTREMITIES: Normal range of motion. No edema. SKIN: Warm, dry, no rash. NEURO: No focal deficits. Alert and oriented x3. PSYCH: Normal mood and affect. Course Vital Signs Vital signs: Vital Signs Temperature 36.4 C L 07/12/24 03:14 Pulse Rate 50 L 07/12/24 03:14 Respiratory Rate 13 07/12/24 03:14 Blood Pressure 143/63 H 07/12/24 03:14 Pulse Oximetry 97 07/12/24 03:14 Oxygen Delivery Nasal Cannula 07/12/24 03:14 Oxygen Flow Rate 3 07/12/24 03:14 Temperature 36.4 C L 07/12/24 03:20 Pulse Rate 65 07/12/24 05:41 Respiratory Rate 19 07/12/24 05:41 Blood Pressure 147/77 H 07/12/24 05:41 Pulse Oximetry 98 07/12/24 05:41 Oxygen Delivery Nasal Cannula 07/12/24 03:14 Oxygen Flow Rate 3 07/12/24 03:14 Medical Decision Making MDM Narrative Medical decision making narrative: Differential diagnosis includes ureterolithiasis, UTI, bowel obstruction CT scan showed a 2-3 mm kidney stone Patient will be given a urine strainer the patient has oxycodone and Flomax at the facility are ready on his p.r.n. Vital Signs Vital Signs: Vital Signs Temperature 36.4 C L 07/12/24 03:14 Pulse Rate 50 L 07/12/24 03:14 Respiratory Rate 13 07/12/24 03:14 Blood Pressure 143/63 H 07/12/24 03:14 Pulse Oximetry 97 07/12/24 03:14 Oxygen Delivery Nasal Cannula 07/12/24 03:14 Oxygen Flow Rate 3 07/12/24 03:14 Temperature 36.4 C L 07/12/24 03:20 Pulse Rate 65 07/12/24 05:41 Respiratory Rate 19 07/12/24 05:41 Blood Pressure 147/77 H 07/12/24 05:41 Pulse Oximetry 98 07/12/24 05:41 Oxygen Delivery Nasal Cannula 07/12/24 03:14 Oxygen Flow Rate 3 07/12/24 03:14 Lab Data 07/12/24 03:27 07/12/24 03:27 Labs: Lab Results 07/12/24 Range/Units 03:27 WBC 7.6 (4.5-10.0) K/mm3 RBC 3.87 L (4.6-6.20) M/mm3 Hgb 11.1 L (14.0-18.0) g/dL Hct 34.8 L (42.0-52.0) % MCV 89.9 (80-100) fl MCH 28.7 (26-34) pg MCHC 31.9 L (32-36) g/dl RDW 13.9 (11.5-14.5) % Plt Count 172 (150-375) k/mm3 MPV 8.8 (7.4-10.4) fl Immature Gran % (Auto) 0.4 (0-0.5) % Neut % (Auto) 74.0 H (45.5-73.1) % Lymph % (Auto) 14.8 L (18.3-44.2) % [place] % (Auto) 5.8 (2.6-8.5) % Eos % (Auto) 4.5 H (0-4.4) % Baso % (Auto) 0.5 (0.2-1.2) % Lymph # (Auto) 1.12 (0.9-3.2) K/mm3 [place] # (Auto) 0.4 (0.1-0.6) K/mm3 Eos # (Auto) 0.3 (0-0.3) K/mm3 Baso # (Auto) 0.0 (0.0-0.1) K/mm3 Abs Immat Gran (auto) 0.03 (0.00-0.031) K/mm3 Absolute Neuts (auto) 5.6 (1.3-6.7) K/mm3 Absolute Nucleated RBC 0.000 (0.0-0.012) K/mm3 Nucleated RBC % 0.0 (0.0-0.2) % PT 13.7 (11.1-14.7) Seconds INR 1.0 APTT 32.4 (22.3-36.8) Seconds Sodium 140 (137-145) mmol/L Potassium 4.5 (3.4-5.0) mmol/L Chloride 101 (98-107) mmol/L Carbon Dioxide 33 H (22-30) mmol/L Anion Gap 6 (4-12) mmol/L BUN 23 H D (9-20) mg/dL Creatinine 1.13 (0.7-1.3) mg/dL Estim Creat Clear Calc 70 ml/min Estimated GFR > 60 (59 - ) Glucose 149 H (65-110) mg/dL Lactic Acid 0.7 (0.7-2.0) mmol/L Calcium 9.1 (8.4-10.2) mg/dL Magnesium 1.7 (1.6-2.3) mg/dL Total Bilirubin 0.7 (0.2-1.3) mg/dL AST 19 (17-59) U/L ALT 17 (6-50) U/L Alkaline Phosphatase 75 (38-126) U/L Troponin I < 0.012 (0.000-0.034) ng/mL Total Protein 7.0 (6.3-8.2) g/dL Albumin 3.7 (3.5-5.1) g/dL Urine Color Yellow (Yellow) Urine Appearance Clear (Clear) Urine pH 5.5 (5.0-9.0) Ur Specific [place] 1.015 (1.001-1.035) Urine Protein Trace (Negative) mg/dL Urine Glucose (UA) Negative (Negative) mg/dL Urine Ketones Negative (Negative) mg/dL Ur Blood (Man) 3+ H (Negative) Urine Nitrate Negative (Negative) Urine Bilirubin Negative (Negative) Urine Urobilinogen 1.0 (<2.0) mg/dL Leukocyte Esterase Rfl Negative (Negative) MARIA L/UL Urine RBC >100 H (0-2) /hpf Urine WBC 0-5 (0-3) /hpf Ur Squamous Epith Cells None seen (Few) /hpf Urine Bacteria None seen /hpf Urine Casts 0-2 Influenza A (RT-PCR) Negative (Negative) Influenza B (RT-PCR) Negative (Negative) RSV (RT-PCR) Negative (Negative) SARS-CoV-2 RNA (RT-PCR) Negative (Negative) Discharge Plan Discharge Clinical Impression: Ureterolithiasis Patient Disposition: NH Correction/Asst Living Condition: Stable Instructions: Antibiotic Form, How to Strain Your Urine (ED), Abdominal Pain (ED), Flank Pain (ED) Additional Instructions: Please strain your urine when you urinate. If you are able to collect a kidney stone please take it to Urology. Is recommended that you follow-up with Urology to ensure that the stone passes Patient Language: Vietnamese Prescriptions: No Action benzonatate 100 mg capsule 100 mg PO TID PRN (Reason: cough ) BreztrFFFavsphere 160-9-4.8 mcg/actuation HFA aerosol inhaler 2 inh INHALATION BID oxycodone 5 mg tablet 5 mg PO Q8H PRN (Reason: pain) Simbrinza 1-0.2 % drops,suspension 1 drp EACH EYE TID insulin glargine [Lantus U-100 Insulin] 100 unit/mL Solution 15 unit subcut HS 15 Days Qty: 2.25 0RF insulin aspart U-100 [Novolog FlexPen U-100 Insulin] 100 unit/mL (3 mL) insulin pen 1 sliding scale dose subcut USEASDIRECTD Qty: 15 2RF Rx Instructions: sliding scale insulin 70-130 - 0 units of insulin 131-180 - 2 units of insulin 181-240 - 4 units of insulin 241- 300- 6 units of insulin 301- 350 - 8 units of insulin 351-400 - 10 units of insulin >400 - 12 units of insulin prednisone 5 mg tablet 5 mg PO DIRECTED Qty: 27 0RF Rx Instructions: see taper instructions 30mg x 1 more day, then 20mg daily x 3 days, then 10mg daily x 3 days, then 5 mg daily x 3 days then stop. sennosides [Senokot] 8.6 mg Tablet 8.6 mg PO PRN PRN (Reason: Constipation) acetaminophen 325 mg Tablet 650 mg PO Q8H PRN (Reason: Pain, Mild) loperamide [Anti-Diarrheal (loperamide)] 2 mg Capsule 2 mg PO Q6H PRN (Reason: Diarrhea) dextromethorphan-guaifenesin 10-100 mg/5 mL Syrup 10 ml PO Q4-6H PRN (Reason: Cough) aspirin 81 mg Tablet,Delayed Release (Dr/Ec) 81 mg PO DAILY carvedilol 3.125 mg Tablet 3.125 mg PO BID Rx Instructions: must administer with a meal/food tamsulosin 0.4 mg Capsule 0.4 mg PO QAM cabergoline 0.5 mg Tablet 0.5 mg PO 2XW Rx Instructions: 1mg, Wednesday and Wednesday gabapentin 100 mg Capsule 100 mg PO TID albuterol sulfate 90 mcg/actuation Hfa Aerosol Inhaler 2 puff INHALATION Q4H PRN (Reason: Wheezing) albuterol sulfate 90 mcg/actuation Hfa Aerosol Inhaler 2 puff INHALATION Q6H PRN (Reason: Wheezing) ondansetron 4 mg Tablet,Disintegrating 4 mg PO Q4H PRN (Reason: Nausea And Vomiting) glipizide 5 mg Tablet 5 mg PO QAM escitalopram oxalate 20 mg Tablet 20 mg PO QAM carboxymethylcellulose sodium [Refresh Plus] 0.5 % Dropperette 1 drp EACH EYE QID PRN (Reason: Dry Eyes) rosuvastatin 40 mg Tablet 40 mg PO QHS melatonin 5 mg Tablet 5 mg PO HS Spiriva Respimat 2.5 mcg/actuation Mist 2 puff INHALATION QAM Follow-up/Referrals: Belinda Hernandez MD [Physician] - UNKNOWN,DOCTOR [Primary Care Provider] - Time of Disposition: 06:44
[2024-07-12 04:22] LABS: Influenza A QL RT-PCR Negative (Negative); Influenza B QL RT-PCR Negative (Negative); RSV RNA, RT-PCR Negative (Negative); SARS-CoV-2 RNA PCR Negative (Negative)
[2024-07-12 05:41] VITALS: BP 147/77; PULSE 65; RESP 19; O2SAT 98
[2024-07-12] MEDS: PROCHLORPERAZINE EDISYLATE 10 MG/2 ML VIAL IV PUSH (06:22)
[2024-07-12] MEDS: DICYCLOMINE HCL INJ 20 MG/2 ML VIAL IM (06:22)
[2024-07-12] MEDS: oxyCODONE/ACETAMINOPHEN (*CRX) 5-325 MG TABLET 1 TABLET PO (06:48)
[2024-07-12 07:04] VITALS: BP 115/88; PULSE 54; RESP 18; O2SAT 98
--- OUTSIDE RECORDS SUMMARY | 2024-07-12 07:07 | XMS_ITS | Clinical Summary ---
Author Organization [facility] Address [address] [place] [address] Care Team Providers Care Special Warfare Boat Operator Name Role Phone Unavailable Primary Care Provider [...] as needed for dry eyes. Active Tiotropium [place] Monohydrate (Spiriva Respimat) 2.5 MCG/ACT aerosol solution Inhale 2 puffs (5 mcg total) RT Daily. Active ergocalciferol (vitamin D2, Ergocalciferol,) 1.25 MG (17367 UT) capsule Take 1 capsule (50,000 Units [...] Coronary arteriosclerosis 10/12/2022 Primary hypertension 12/11/2021 Immunizations Immunization Administration Dates Next Due Influenza, Unspecified 05/10/2006 [...] 67 11/20/2022 4:12 PM CDT Temperature 36.5 C (97.7 F) 11/20/2022 7:27 AM CDT Respiratory Rate 16 11/20/2022 7:27 AM CDT [...] 1956 Sigmoidoscopy 1956 Annual Visit Topic 1957 Hepatitis C Screening 1974 Pneumococcal Vaccine: 65+ Ye ars (1 of 4 - PCV) 07/14/1975 DTaP/Tdap/Td Vaccines (2 - T d or Tdap) 08/20/2014 07/23/2014 HIB Vaccines Aged Out No longer eligi [...]
--- OUTSIDE RECORDS SUMMARY | 2024-07-12 07:07 | XMS_ITS | Clinical Summary ---
Author Organization [facility] Address [address] [place] [address] Care Team Providers Care Assistant Laboratory Director Name Role Phone None, Provider MD Primary [...] 74 10/12/2022 3:21 AM CDT Temperature 37.3 C (99.1 F) 10/12/2022 3:21 AM CDT Respiratory Rate 20 10/12/2022 3:21 AM CDT [...] (1 - 1-dose 75+ series) 07/14/2031 Meningococcal B Vaccine Aged Out No l onger eligible based on patient's age to complete this topic Meningococcal Vaccine Aged Out No idania claudy eligible based on patient's age to complete this topic RSV Immunizations Under 20 Months Aged Out No longer eligible b ased on patient's age to complete this topic Insurance [place] [address] MEDICARE Care Teams Assistant Laboratory Director Relationship Specialty Start Date End Date None, Provider, PCP - General 10/10/21
--- OUTSIDE RECORDS SUMMARY | 2024-07-12 07:07 | XMS_ITS | Referral Summary ---
Author Organization [facility] [employer] Address [address] [place] [address] Care Team Providers Care Telephonic Case Manager Name Role Phone Ly Valenzuela MD Primary Care Provider [phone] Source Comments [facility] [employer],non-owned Affiliates and Associated Physician Practices is amultiple site organization consisting of ambulatory clinics and hospital sitesin [place], [place], [place] and [place]. This disclosure is being madepursuant to the Care Everywhere program and may not contain all information available regarding this patient. Last updated 18.[facility] [employer] Allergies Active Allergy Reactions Criticality Noted Date [...] Active vitamin D, ergocalciferol, (Drisdol) 1.25 MG (02619 UT) capsule Take 1 (one) capsule by [...] type,Bradycardia,Ca rotid occlusion, right,Coronary artery disease involving [place] coronary artery of [place] heart without angina pectoris,JAMES (obstructive sleep apnea),Chronic obstructive pulmonary disease, unspecified COPD type ([facility]),Type 2 diabetes mellitus with stage 2 chronic kidney disease, with long-term current use of insulin ([facility]),Smoker,Caroti d stenosis, left Apply 1 (one) patch [...] Date Recorded PHQ2 TOTAL SCORE 0 12/13/2021 [facility] of Occupat ional Health - Occupational Stress [...] 58 10/28/2022 8:30 PM CDT Temperature 36.9 C (98.4 F) 10/28/2022 2:23 PM CDT Respiratory Rate 16 10/28/2022 8:30 PM CDT [...] on file Medical Devices Implanted Type Area Assistant Chief Of Police Device Identifier Shelf Expiration Date Model / Serial / Lot Loop Recorder Loop Recorder [employer] [id number] / [id number] / Procedures Procedure Name Priority Date/Time Associated [...] - 105 mg/dL 11/19/2022 4:32 AM CDT [facility] Sodium 140 136 - 145 mmol/L 11/19/2022 4:32 AM CDT [facility] Potassium 4.8 3.5 - 5.1 mmol/L 11/19/2022 4:32 AM CDT [facility] Chloride 105 98 - 107 mmol/L 11/19/2022 4:32 AM CDT [facility] CO2 26 22 - 29 mmol/L 11/19/2022 4:32 AM CDT [facility] Calcium 9.9 8.4 - 10.4 mg/dL 11/19/2022 4:32 AM CDT [facility] Anion Gap 9 6 - 16 mmol/L 11/19/2022 4:32 AM CDT [facility] BUN 56(H) 7 - 26 mg/dL 11/19/2022 4:32 AM CDT [facility] Creatinine 1.40(H) 0.72 - 1.25 mg/dL 11/19/2022 4:32 AM CDT [facility] eGFR by CKD-EPI 55(L) >=90 mL/min/1.7 3 m2 11/19/2022 4:32 AM CDT [facility] Blood BLOOD SPECIMEN / Unknown Lab Venipuncture / Unknown 11/19/2022 12:08 AM CDT 11/19/2022 3:50 AM CDT Zay Perry MD LAB - CHEMISTRY ORD ERABLES Performing Organization Address [facility] Co de Phone Number [facility] [address] [place] [id number] * (ABNORMAL) MICROALB/CREAT RATIO URINE RANDOM PANEL (11/18/2022 2:14 PM CDT) Creatinine Urine 35.49 mg/dL 11/19/19 4:29 PM CDT [facility] Microalbumin Urine 1.9 mg/dL 11/18/2022 4:29 PM CDT [facility] Microalbumin/Crea tinine Ratio 53(H) <30 mg/g 11/18/2022 4:29 PM CDT [facility] Urine URINE SPECIMEN OBTAINED BY CLEAN CATCH PROCEDURE / Unknown Collection / Unknown 11/18/2022 2:14 PM CDT 11/18/2022 3:45 PM CDT Sacha Ruby DO LAB - URINE CHEMIS TRY ORDERABLES Performing Organization Address [facility] de Phone Number [facility] [address] [place] [address] * (ABNORMAL) HEMOGLOBIN A1C (10/12/2022 10:31 PM CDT) Hemoglobin A1c 7.7(H) <=5.6 % 10/13/2022 8:30 AM CDT [facility] Estimated Average Glucose 174 mg/dL 10/13/2022 8:30 AM CDT [facility] Comment: HbA1c Interpretation: Normal : < 5.7% Pre-diabetes: 5.7-6.4% Diabetes: Equal to or greater than 6.5% Test results diagnostic of diabetes should be repeated for confirmation. Treatment target values recommended by ADA and other clinical organizations should be used to evaluate metabolic control in patients. Reference: [place] Diabetes Association, Standards of Care in Diabetes -2020 In patients 70 years and older consider HbA1c target range of 7.0-7.5% (Reference: Wood A, et al. JAMDA. 2012) The Sebia assay for the measurement of HbA1c is a National Glycohemoglobin Standardization Program (NGSP) certified method. Blood BLOOD SPECIMEN / Unknown Venipuncture / Unknown 10/12/2022 10:31 PM CDT 10/12/2022 10:36 PM CDT Bertha Randolph MD LAB - CHEMISTRY [place] [facility] Organization Address City/State/ZIP Co de Phone Number [facility] [address] [place] [address], [facility] [phone] from Last 3 Months or Most Recently Relevant to Health Maintenance Advance Directives * Full Code (Latest Code Status on File) Date Activated Date Inactivated Comments 10/28/2022 10:18 PM 11/20/2022 8:18 PM * Full Code Date Activated Date Inactivated Comments 10/12/2022 7:38 PM 10/28/2022 9:39 PM * Full Code Date Activated Date Inactivated Comments 12/11/2021 12:36 PM 12/14/2021 5:07 PM Care Teams Telephonic Case Manager Relationship Specialty Start Date End Date Ly Valenzuela MD [address] [place] [address] PCP - General 03/06/22
--- OUTSIDE RECORDS SUMMARY | 2024-07-12 07:07 | XMS_ITS | Clinical Summary ---
Author Organization [facility] [employer] Address [address] [place] [address] Care Team Providers Care Well Treatment Offsider Name Role Phone Ly Valenzuela MD Primary Care Provider [phone] Source Comments [facility] [employer],non-owned Affiliates and Associated Physician Practices is amultiple site organization consisting of ambulatory clinics and hospital sitesin [place], [place], [place] and [place]. This disclosure is being madepursuant to the Care Everywhere program and may not contain all information available regarding this patient. Last updated 18.[facility] [employer] Allergies Active Allergy Reactions Criticality Noted Date [...] Active vitamin D, ergocalciferol, (Drisdol) 1.25 MG (43680 UT) capsule Take 1 (one) capsule by [...] type,Bradycardia,Ca rotid occlusion, right,Coronary artery disease involving [place] coronary artery of [place] heart without angina pectoris,JAMES (obstructive sleep apnea),Chronic obstructive pulmonary disease, unspecified COPD type ([facility]),Type 2 diabetes mellitus with stage 2 chronic kidney disease, with long-term current use of insulin ([facility]),Smoker,Caroti d stenosis, left Apply 1 (one) patch [...] Date Recorded PHQ2 TOTAL SCORE 0 12/13/2021 [facility] [place] of Occupat ional Health - Occupational Stress [...] place to sleep or slept in a fci (including now)? No 10/16/2022 Sex and Gender [...] URINE PROTEIN SCREENING 05/10/2024 11/18/2022 MEDICARE AWV CALENDAR YEAR 2024 DTAP/TDAP/TD VACCINES (3 - [...] this topic MENINGOCOCCAL VACCINE Aged Out No idania claudy eligible based on patient's age to complete this topic Medical Devices Implanted Type Area [employer] Device Identifier Shelf Expiration Date Model / Serial / Lot Loop Recorder Loop Recorder [employer] [id number] / [id number] / Procedures Procedure Name Priority Date/Time Associated [...] - 105 mg/dL 11/19/2022 4:32 AM CDT [facility] Sodium 140 136 - 145 mmol/L 11/19/2022 4:32 AM CDT [facility] Potassium 4.8 3.5 - 5.1 mmol/L 11/19/2022 4:32 AM CDT [facility] Chloride 105 98 - 107 mmol/L 11/19/2022 4:32 AM CDT [facility] CO2 26 22 - 29 mmol/L 11/19/2022 4:32 AM CDT [facility] Calcium 9.9 8.4 - 10.4 mg/dL 11/19/2022 4:32 AM CDT [facility] Anion Gap 9 6 - 16 mmol/L 11/19/2022 4:32 AM CDT [facility] BUN 56(H) 7 - 26 mg/dL 11/19/2022 4:32 AM CDT [facility] Creatinine 1.40(H) 0.72 - 1.25 mg/dL 11/19/2022 4:32 AM CDT [facility] eGFR by CKD-EPI 55(L) >=90 mL/min/1.7 3 m2 11/19/2022 4:32 AM CDT [facility] Blood BLOOD SPECIMEN / Unknown Lab Venipuncture / Unknown 11/19/2022 12:08 AM CDT 11/19/2022 3:50 AM CDT Zay Perry MD LAB - CHEMISTRY ORD ERABLES [facility] [address] [place] [address] * (ABNORMAL) MICROALB/CREAT RATIO URINE RANDOM PANEL (11/18/2022 2:14 PM CDT) Creatinine Urine 35.49 mg/dL 11/19/19 4:29 PM CDT [facility] Microalbumin Urine 1.9 mg/dL 11/18/2022 4:29 PM CDT [facility] Microalbumin/Crea tinine Ratio 53(H) <30 mg/g 11/18/2022 4:29 PM CDT [facility] Urine URINE SPECIMEN OBTAINED BY CLEAN CATCH PROCEDURE / Unknown Collection / Unknown 11/18/2022 2:14 PM CDT 11/18/2022 3:45 PM CDT Sacha Ruby DO LAB - URINE CHEMIS TRY ORDERABLES Performing Organization Address [facility]/ZIP Co de Phone Number [facility] [address] [place] [address] * (ABNORMAL) HEMOGLOBIN A1C (10/12/2022 10:31 PM CDT) Hemoglobin A1c 7.7(H) <=5.6 % 10/13/2022 8:30 AM CDT [facility] Estimated Average Glucose 174 mg/dL 10/13/2022 8:30 AM T [facility] Comment: HbA1c Interpretation: Normal : < 5.7% Pre-diabetes: 5.7-6.4% Diabetes: Equal to or greater than 6.5% Test results diagnostic of diabetes should be repeated for confirmation. Treatment target values recommended by ADA and other clinical organizations should be used to evaluate metabolic control in patients. Reference: [place] Diabetes Association, Standards of Care in Diabetes [...] Randolph MD LAB - CHEMISTRY [place] [facility] [address] [place] [address], [facility] [phone] from Last 3 Months or Most Recently Relevant to Health Maintenance Advance Directives * Full Code (Latest Code Status on File) Date Activated Date Inactivated Comments 10/28/2022 10:18 PM 11/20/2022 8:18 PM * Full Code Date Activated Date Inactivated Comments 10/12/2022 7:38 PM 10/28/2022 9:39 PM * Full Code Date Activated Date Inactivated Comments 12/11/2021 12:36 PM 12/14/2021 5:07 PM Care Teams Well Treatment Offsider Relationship Specialty Start Date End Date Ly Valenzuela MD [address] [place] [id number] PCP - General 03/06/22
--- OUTSIDE RECORDS SUMMARY | 2024-07-12 07:08 | XMS_ITS | CONTINUITY OF CARE DOCUMENT ---
Author Name gina fuentes Address Unknown Organization [facility] Address [address] [facility] [address] [place] [address] Phone [phone] Care Team Providers Care Bankruptcy Attorney Name Role Phone Steve Elise MD Unavailable [phone] Setve Elise MD Unavailable [phone] INSURANCE PROVIDERS Payer name Policy type / Coverage type Brush red democrat ID [place] Medicare [id number]
--- OUTSIDE RECORDS SUMMARY | 2024-07-12 07:08 | XMS_ITS | Patient Health Summary ---
Author Organization [facility] Address [address] [place] [address] Care Team Providers Care Resource Efficiency Manager Name Role Phone Ly Valenzuela MD Primary Care Provider [phone] Note from [facility],non-owned Affiliates and Associated Physician Practices is amultiple site organization consisting of ambulatory clinics and hospital sitesin [place], [place], [place] and [place]. This disclosure is being madepursuant to the Care Everywhere program and may not contain all information available regarding this patient. Last updated 18.[facility] Allergies * Hydralazine(Nausea and/or Vomiting) * Lisinopril(Other) [...] * vitamin D, ergocalciferol, (Drisdol) 1.25 MG (70579 UT) capsule Take 1 (one) capsule by [...] Date Recorded PHQ2 TOTAL SCORE 0 12/13/2021 [facility] - Occupational Stress [...] place to sleep or slept in a mcfp (including now)? 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 It has not been cleared or approved by the Food and Drug Administration. Performed at: - [address] [id number] Poker In: Eriberto Laboy MD, Phone: [phone] Sacha Ruby DO LAB - CHEMISTRY OR DERABLES [facility] ([facility]) [address] [place] [address] * RENIN ACTIVITY (11/19/2022 12:08 AM CDT) Renin 5.125 0.167 - 5.380 ng/mL/hr 11/27/2022 10:11 AM CDT [facility] ([facility]) Blood BLOOD SPECIMEN / Unknown Lab Venipuncture / Unknown 11/19/2022 12:08 AM CDT 11/19/2022 3:50 AM CDT Narrative [facility] ([facility]) - 11/27/2022 10:11 AM CDT Test(s) [id number] Activity, Plasma was developed and its performance characteristics determined by [facility]. It has not been cleared or approved by the Food and Drug Administration. Performed at: - [address] [id number] Poker In: Eriberto Laboy MD, Phone: [phone] Sacha Ruby DO LAB - CHEMISTRY OR DERABLES [facility] ([facility]) [address] [place] [address] * (ABNORMAL) CBC W/O DIFFERENTIAL (11/19/2022 12:08 AM CDT) Only the most recent of9 resultswithin the time period is included. WBC 8.8 4.4 - 10.7 x10E9/L 11/19/2022 4:29 AM CDT [facility] RBC 3.40(L) 3.80 - 5.40 x10E12/L 11/19/2022 4:29 AM CDT [facility] Hemoglobin 10.3(L) 12.0 - 17.6 gm/dL 11/19/2022 4:29 AM CDT [facility] Hematocrit 32.0(L) 35.2 - 51.7 % 11/19/2022 4:29 AM CDT [facility] MCV 94.1 80.7 - 98.3 fl 11/19/2022 4:29 AM CDT [facility] MCH 30.3 26.7 - 34.0 pg 11/19/2022 4:29 AM CDT [facility] MCHC 32.2 30.8 - 35.9 gm/dL 11/19/2022 4:29 AM CDT [facility] Platelet Count 246 153 - 416 x10E9/L 11/19/2022 4:29 AM CDT [facility] RDW-CV 14.5 12.1 - 14.9 % 11/19/2022 4:29 AM CDT [facility] MPV 9.2(L) 9.4 - 12.9 fl 11/19/2022 4:29 AM CDT [facility] Blood BLOOD SPECIMEN / Unknown Lab Venipuncture / Unknown 11/19/2022 12:08 AM CDT 11/19/2022 3:50 AM CDT Zay Perry MD LAB - HEMATOLOGY OR DERABLES [facility] [address] [place], [place] [id number] * (ABNORMAL) BASIC METABOLIC PANEL (CALCIUM TOTAL) (11/19/2022 12:08 AM CDT) Only the most recent of27 resultswithin the time period is included. Glucose 114(H) 70 - 105 mg/dL 11/19/2022 4:32 AM CDT [facility] Sodium 140 136 - 145 mmol/L 11/19/2022 4:32 AM CDT [facility] Potassium 4.8 3.5 - 5.1 mmol/L 11/19/2022 4:32 AM CDT [facility] Chloride 105 98 - 107 mmol/L 11/19/2022 4:32 AM CDT [facility] CO2 26 22 - 29 mmol/L 11/19/2022 4:32 AM CDT [facility] Calcium 9.9 8.4 - 10.4 mg/dL 11/19/2022 4:32 AM CDT [facility] Anion Gap 9 6 - 16 mmol/L 11/19/2022 4:32 AM CDT [facility] BUN 56(H) 7 - 26 mg/dL 11/19/2022 4:32 AM CDT [facility] Creatinine 1.40(H) 0.72 - 1.25 mg/dL 11/19/2022 4:32 AM CDT [facility] eGFR by CKD-EPI 55(L) >=90 mL/min/1.7 3 m2 11/19/2022 4:32 AM CDT [facility] Blood BLOOD SPECIMEN / Unknown Lab Venipuncture / Unknown 11/19/2022 12:08 AM CDT 11/19/2022 3:50 AM CDT Zay Perry MD LAB - CHEMISTRY ORD ERABLES [facility] [address] [place] [phone] * LDH BLOOD (11/19/2022 12:08 AM CDT) Pathologist [facility] LDH 166 125 - 220 U/L 11/19/2022 4:46 AM CDT [facility] Blood BLOOD SPECIMEN / Unknown Lab Venipuncture / Unknown 11/19/2022 12:08 AM CDT 11/19/2022 3:50 AM CDT Sacha Ruby DO LAB - CHEMISTRY OR DERABLES Performing Organization Address [facility] Co de Phone Number [facility] [address] [place] [phone] * CORTISOL BLOOD AM (11/19/2022 12:08 AM CDT) Cortisol AM 5.0 4.3 - 22.4 ug/dL 11/19/2022 4:45 AM CDT [facility] Blood BLOOD SPECIMEN / Unknown Lab Venipuncture / Unknown 11/19/2022 12:08 AM CDT 11/19/2022 3:50 AM CDT Sacha Ruby DO LAB - CHEMISTRY OR DERABLES Performing Organization Address [facility] Co de Phone Number [facility] [address] [place] [phone] * US RETROPERITONEAL COMPLETE (11/18/2022 4:38 PM CDT) Anatomical Region Laterality Modality Abdomen Ultrasound 11/18/2022 5:05 PM CDT Impressions 11/18/2022 5:07 PM CDT IMPRESSION: 1. Unremarkable kidneys and bladder. 2. Mildly enlarged spleen > Interpreting Provider: Keya Altman MD on 11/18/2022 5:07 PM Narrative 11/18/2022 5:07 PM CDT PROCEDURE: US RETROPERITONEAL COMPLETE DATE/TIME OF EXAM: 11/18/2022 4:38 PM CLINICAL INFORMATION: None relevant/not provided if blank. Indication: N17.9: Acute kidney failure, unspecified (CMS/HCC) Additional History: Hyperkalemia, abdominal pain COMPARISON: None. TECHNIQUE: Real-time ultrasound of the kidneys and bladder with DICOM image capture performed by tissue technologist. FINDINGS: The right kidney measures 10.6 x 4.9 x 5.5 cm. Overall cortical thickness and echogenicity are normal. A prominent midpole calyx is most likely an incidental finding. There is no hydronephrosis or shadowing stone. The left kidney measures 11.6 x 5.2 x 4.9 cm and has normal cortical thickness and echogenicity. No shadowing stone or obstruction. The urinary bladder is mostly decompressed and unremarkable. Ureteral jets are seen. The spleen measures 14.9 cm which is mildly enlarged. Procedure Note Keya Altman MD - 11/18/2022 PROCEDURE: US RETROPERITONEAL COMPLETE DATE/TIME OF EXAM: 11/18/2022 4:38 PM CLINICAL INFORMATION: None relevant/not provided if blank. Indication: N17.9: Acute kidney failure, unspecified (CMS/HCC) Additional History: Hyperkalemia, abdominal pain COMPARISON: None. TECHNIQUE: Real-time ultrasound of the kidneys and bladder with DICOMimage capture performed by tissue technologist. FINDINGS: The right kidney measures 10.6 [...] Keya Altman MD on 11/18/2022 5:07 PM [facility]ly [facility] Imtiaz Ruby [facility] ORDERABLES * (ABNORMAL) MICROALB/CREAT RATIO URINE RANDOM PANEL (11/18/2022 2:14 PM CDT) Creatinine Urine 35.49 mg/dL 11/19/19 4:29 PM CDT [facility] Microalbumin Urine 1.9 mg/dL 11/18/2022 4:29 PM CDT [facility] Microalbumin/Crea tinine Ratio 53(H) <30 mg/g 11/18/2022 4:29 PM CDT [facility] Urine URINE SPECIMEN OBTAINED BY CLEAN CATCH PROCEDURE / Unknown Collection / Unknown 11/18/2022 2:14 PM CDT 11/18/2022 3:45 PM CDT Sacha Ruby LAB - URINE CHEMIS TRY ORDERABLES [facility] [address] [place] [address] * (ABNORMAL) URINALYSIS REFLEX TO MICROSCOPIC NO CULTURE (11/18/2022 2:14 PM CDT) Only the most recent of2 resultswithin the time period is included. Color UA Yellow Straw, Yellow 11/18/2022 3:58 PM CDT [facility] Clarity UA Cloudy(A) Clear 11/18/2022 3:58 PM CDT [facility] Glucose UA Negative Negative 11/18/2022 3:58 PM CDT [facility] Bilirubin UA Negative Negative 11/18/2022 3:58 PM CDT [facility] Ketone UA Negative Negative 11/18/2022 3:58 PM CDT [facility] Specific [place] UA 1.010 1.005 - 1.030 11/18/2022 3:58 PM CDT [facility] Blood UA Negative Negative 11/18/2022 3:58 PM CDT [facility] pH UA 6.0 5.0 - 8.0 pH 11/18/2022 3:58 PM CDT [facility] Protein UA Negative Negative 11/18/2022 3:58 PM CDT [facility] Urobilinogen UA Negative Negative mg/dL 11/18/2022 3:58 PM CDT [facility] Nitrite UA Negative Negative 11/18/2022 3:58 PM CDT [facility] Leukocyte UA 3+(A) Negative 11/18/2022 3:58 PM CDT [facility] Urine Microscopy Urine microscopy to follow 11/18/2022 3:58 PM CDT [facility] Urine URINE SPECIMEN OBTAINED BY CLEAN CATCH PROCEDURE / Unknown Collection / Unknown 11/18/2022 2:14 PM CDT 11/18/2022 3:45 PM CDT Narrative [facility] - 11/18/2022 3:58 PM CDT Sacha Ruby DO LAB - URINALYSIS O RDERABLES Performing Organization Address [facility]/ZIP Co de Phone Number [facility] [address] [place] [phone] * (ABNORMAL) URINE MICROSCOPIC ONLY (11/18/2022 2:14 PM CDT) RBC UA 11-20(A) 0 - 5 # /hpf 11/18/2022 4:01 PM CDT [facility] WBC Clumps UA Few(A) None Seen /HPF 11/18/2022 4:01 PM CDT [facility] WBC UA >100(A) 0 - 5 # /hpf 11/18/2022 4:01 PM CDT [facility] Bacteria UA Trace(A) None Seen 11/18/2022 4:01 PM CDT [facility] Squamous Epithelial Cells None Seen 0 - 5 /hpf 11/18/2022 4:01 PM CDT [facility] Urine URINE SPECIMEN OBTAINED BY CLEAN CATCH PROCEDURE / Unknown Collection / Unknown 11/18/2022 2:14 PM CDT 11/18/2022 3:45 PM CDT Narrative [facility] - 11/18/2022 4:01 PM CDT Sacha Ruby DO LAB - URINALYSIS O RDERABLES Performing Organization Address [facility] Co de Phone Number [facility] [address] [place] [phone] * PROTEIN URINE RANDOM QUANTITATIVE (11/18/2022 2:14 PM CDT) Protein Random Urine 7.3 <11.9 mg/dL 11/18/2022 4:23 PM CDT [facility] Urine URINE SPECIMEN OBTAINED BY CLEAN CATCH PROCEDURE / Unknown Collection / Unknown 11/18/2022 2:14 PM CDT 11/18/2022 3:45 PM CDT Sacha Ruby DO LAB - URINE CHEMIS TRY ORDERABLES Performing Organization Address City/[facility]/ZIP Co de Phone Number [facility] [address] [place] [address] * SODIUM URINE RANDOM (11/18/2022 2:14 PM CDT) Sodium Urine 49 mmol/L 11/18/2022 4:17 PM CDT [facility] Urine URINE SPECIMEN OBTAINED BY CLEAN CATCH PROCEDURE / Unknown Collection / Unknown 11/18/2022 2:14 PM CDT 11/18/2022 3:45 PM CDT Preciousnancynathalia Ruby DO LAB - URINE CHEMIS TRY ORDERABLES [facility] [address] [place] [address] * UREA NITROGEN URINE RANDOM (11/18/2022 2:14 PM CDT) Urea Nitrogen Urine 488 mg/dL 11/18/2022 4:28 PM CDT [facility] Urine URINE SPECIMEN OBTAINED BY CLEAN CATCH PROCEDURE / Unknown Collection / Unknown 11/18/2022 2:14 PM CDT 11/18/2022 3:45 PM CDT Karinanathalia Dillonkylee Ruby LAB - URINE CHEMIS TRY ORDERABLES Performing Organization Address City/[facility]/ZIP Co de Phone Number [facility] [address] [place] [address] * POTASSIUM URINE RANDOM (11/18/2022 2:14 PM CDT) Potassium Urine 37.2 mmol/L 11/18/2022 4:17 PM CDT [facility] Urine URINE SPECIMEN OBTAINED BY CLEAN CATCH PROCEDURE / Unknown Collection / Unknown 11/18/2022 2:14 PM CDT 11/18/2022 3:45 PM CDT Karinanathalia Ruby DO LAB - URINE CHEMIS TRY ORDERABLES [facility] [address] [place] [phone] * (ABNORMAL) POTASSIUM BLOOD (11/17/2022 12:46 PM CDT) Potassium 5.6(H) 3.5 - 5.1 mmol/L 11/17/2022 1:19 PM CDT [facility] Blood BLOOD SPECIMEN / Unknown Venipuncture / Unknown 11/17/2022 12:46 PM CDT 11/17/2022 12:57 PM CDT Alta Harrison MD LAB - CHEMISTRY ORD ERABLES [facility] [address] [place] [address] * XR PELVIS W LEFT HIP 2VW (11/06/2022 5:20 PM CDT) Anatomical Region Laterality Modality Pelvis Radiographic Evelyn ging 11/06/2022 5:34 PM CDT Narrative 11/06/2022 5:34 PM CDT PROCEDURE: XR PELVIS W LEFT HIP 2VW, DATE/TIME OF EXAM: 11/06/2022 5:20 PM, LOCATION [facility] INDICATION: OA Left hip 3 views [...] DATE/TIME OF EXAM: 11/06/2022 5:20 PM, LOCATION [facility] INDICATION: OA Left hip 3 views [...] - 7.2 mg/dL 11/03/2022 10:21 AM CDT [facility] Blood BLOOD SPECIMEN / Unknown Lab Venipuncture / Unknown 11/03/2022 9:30 AM CDT 11/03/2022 9:39 AM CDT Raul Vo MD LAB - CHEMISTRY [place] Performing Organization Address City/[facility]/ZIP Co de Phone Number [facility] [address] [place] [address] * CARDIAC EKG ORDER (10/30/2022 2:23 PM CDT) Only the most recent of3 resultswithin the time period is included. Narrative 10/30/2022 2:23 PM CDT Ordered by an unspecified provider. Scanned Document CARDIAC SERVICES ORD ERABLES * (ABNORMAL) VITAMIN D 25-HYDROXY (10/30/2022 2:05 AM CDT) Vitamin D, 25 Hydroxy 18.0(L) 30 - 100 ng/mL 10/30/2022 3:40 AM CDT [facility] Blood BLOOD SPECIMEN / Unknown Lab Venipuncture / Unknown 10/30/2022 2:05 AM CDT 10/30/2022 2:53 AM CDT Narrative [facility] - 10/30/2022 3:40 AM CDT Vitamin D Status: Deficiency <20 ng/mL Insufficiency 20-30 ng/mL Sufficiency 30-100 ng/mL Toxicity >100 ng/mL Donna Grimm MD LAB - CHEMISTRY [place] [facility] [address] [place] [address] * VITAMIN B12 (10/30/2022 2:05 AM CDT) Vitamin B12 395 213 - 816 pg/mL 10/30/2022 3:45 AM CDT [facility] Blood BLOOD SPECIMEN / Unknown Lab Venipuncture / Unknown 10/30/2022 2:05 AM CDT 10/30/2022 2:53 AM CDT Donna Grimm MD LAB - CHEMISTRY [place] [facility] [address] [place] [address] * (ABNORMAL) GLUCOSE - POINT OF CARE (10/28/2022 6:03 PM CDT) Only the most recent of102 resultswithin the time period is included. [facility] Glucose WB/POC 216(H) 70 - 115 mg/dL 10/28/2022 6:07 PM CDT [facility] Specimen Type Cap Fingerstick 2022 6:07 PM CDT [facility] Blood BLOOD SPECIMEN / Unknown 10/28/2022 6:03 PM CDT 10/28/2022 6:07 PM CDT Palma Rocha MD LAB - POINT OF CARE ORDERABLES [facility] [address] [place] [address] [phone] * (ABNORMAL) COMPREHENSIVE METABOLIC PANEL (10/27/2022 5:56 AM CDT) Only the most recent of3 resultswithin the time period is included. [facility] BUN 31(H) 7 - 26 mg/dL 10/27/2022 8:54 AM CDT [facility] Creatinine 1.35(H) 0.71 - 1.16 mg/dL 10/27/2022 8:54 AM [facility] Sodium 141 136 - 145 mmol/L 10/27/2022 8:54 AM T [facility] Potassium 4.3 3.5 - 4.5 mmol/L 10/27/2022 8:54 AM [facility] Chloride 109(H) 98 - 107 mmol/L 10/27/2022 8:54 AM [facility] CO2 25 22 - 29 mmol/L 10/27/2022 8:54 AM [facility] Glucose 128(H) 70 - 115 mg/dL 10/27/2022 8:54 AM [facility] Calcium 9.5 8.4 - 10.2 mg/dL 10/27/2022 8:54 AM [facility] Protein Total 6.4 6.0 - 8.3 g/dL 10/27/2022 8:54 AM [facility] Albumin 2.7(L) 3.4 - 5.0 g/dL 10/27/2022 8:54 AM [facility] Bilirubin Total 0.6 0.2 - 1.2 mg/dL 10/27/2022 8:54 AM [facility] Alkaline Phosphatase 135 40 - 150 U/L 10/27/2022 8:54 AM [facility] ALT 58(H) 5 - 55 U/L 10/27/2022 8:54 AM [facility] AST 23 5 - 34 U/L 10/27/2022 8:54 AM [facility] Anion Gap 11 8 - 18 10/27/2022 8:54 AM [facility] BUN/Creatinine Ratio 23 7 - 23 10/27/2022 8:54 AM [facility] Osmolality Calculated 300 270 - 300 mOsm/kg 10/27/2022 8:54 AM [facility] Albumin/Globulin Ratio 0.7(L) 1.1 - 2.3 10/27/2022 8:54 AM [facility] eGFR by CKD-EPI 58(L) >=90 mL/min/1.7 3 m2 10/27/2022 8:54 AM [facility] Blood BLOOD SPECIMEN / Unknown Lab Venipuncture / Unknown 10/27/2022 5:56 AM T 10/27/2022 7:[address] [facility] Francis Shepherd III, MD LAB - CHEMISTRY ORDERABLES [facility] [address] [place] [address], [facility] [phone] * PHOSPHORUS BLOOD (10/27/2022 5:56 AM CDT) Only the most recent of16 resultswithin the time period is included. Phosphorus 4.2 2.8 - 5.1 mg/dL 10/27/2022 8:26 AM CDT [facility] Blood BLOOD SPECIMEN / Unknown Lab Venipuncture / Unknown 10/27/2022 5:56 AM CDT 10/27/2022 7:58 AM CDT Francis Shepherd III, MD LAB - CHEMISTRY ORDERABLES Performing Organization Address City/[facility]/ZIP Co de Phone Number [address] [address], [facility] [phone] * MAGNESIUM BLOOD (10/27/2022 5:56 AM CDT) Only the most recent of16 resultswithin the time period is included. Pathologist [facility] Magnesium 2.0 1.6 - 2.6 mg/dL 10/27/2022 8:26 AM CDT [facility] Blood BLOOD SPECIMEN / Unknown Lab Venipuncture / Unknown 10/27/2022 5:56 AM CDT 10/27/2022 7:58 AM CDT Francis Shepherd III, MD LAB - CHEMISTRY ORDERABLES Performing Organization Address City/[facility]/ZIP Co de Phone Number [address] [address], [facility] [phone] * (ABNORMAL) CBC W AUTO DIFFERENTIAL (10/26/2022 4:14 AM CDT) Only the most recent of14 resultswithin the time period is included. WBC 10.5 3.5 - 10.5 10 3/uL 10/26/2022 5:20 AM CDT [facility] RBC 4.27(L) 4.30 - 5.70 10 6/uL 10/26/2022 5:20 AM CDT [facility] Hemoglobin 12.3 12.0 - 17.6 g/dL 10/26/2022 5:20 AM [facility] Hematocrit 38.1 35.2 - 51.7 % 10/26/2022 5:20 AM [facility] MCV 89.2 80.7 - 98.3 fL 10/26/2022 5:20 AM [facility] MCH 28.8 26.7 - 34.0 pg 10/26/2022 5:20 AM [facility] MCHC 32.3 30.8 - 35.9 g/dL 10/26/2022 5:20 AM [facility] RDW-SD 45.3 36.0 - 50.0 fL 10/26/2022 5:20 AM [facility] RDW-CV 14.2 11.2 - 14.8 % 10/26/2022 5:20 AM [facility] Platelet Count 261 150 - 400 10 3/uL 10/26/2022 5:20 AM [facility] MPV 9.5 9.4 - 12.9 fL 10/26/2022 5:20 AM [facility] nRBC Absolute 0.00 0 10 3/uL 10/26/2022 5:20 AM [facility] nRBC Auto 0.0 0 /100 WBC 10/26/2022 5:20 AM [facility] Neutrophils % 76.1(H) 35.0 - 70.0 % 10/26/2022 5:20 AM [facility] Lymphocytes % 14.3(L) 20.0 - 43.0 % 10/26/2022 5:20 AM [facility] Monocytes % 5.9 5.0 - 13.0 % 10/26/2022 5:20 AM [facility] Eosinophils % 2.4 0.0 - 6.0 % 10/26/2022 5:20 AM [facility] Basophil % 0.3 0.0 - 2.0 % 10/26/2022 5:20 AM [facility] Neutrophils Absolute 8.01(H) 1.60 - 7.00 10 3/uL 10/26/2022 5:20 AM [facility] Lymphocyte Absolute 1.50 1.10 - 3.90 10 3/uL 10/26/2022 5:20 AM CDT [facility] Monocytes Absolute 0.62 0.26 - 1.07 10 3/uL 10/26/2022 5:20 AM CDT [facility] Eosinophils Absolute 0.25 0.00 - 0.47 10 3/uL 10/26/2022 5:20 AM CDT [facility] Basophils Absolute 0.03 0.00 - 0.08 10 3/uL 10/26/2022 5:20 AM CDT [facility] Immature Granulocytes % 1.0 0.0 - 1.0 % 10/26/2022 5:20 AM CDT [facility] Immature Granulocytes Absolute 0.11 10/26/2022 5:20 AM CDT [facility] Blood BLOOD SPECIMEN / Unknown Lab Venipuncture / Unknown 10/26/2022 4:14 AM CDT 10/26/2022 5:11 AM CDT Gregorio Khan MD LAB - HEMATOLOGY ORD ERABLES Performing Organization Address City/State/[facility] Co de Phone Number [facility] [address] [place] [address], [facility] [phone] * FL SWALLOWING FUNCTION STUDY (10/19/2022 10:15 AM CDT) Anatomical Region Laterality Modality Chest Radiographic Evelyn ging 10/19/2022 10:2 2 AM CDT Narrative 10/19/2022 12:26 PM CDT PROCEDURE: FL SWALLOWING FUNCTION STUDY, DATE/TIME OF EXAM: 10/19/2022 8:12 AM, LOCATION [facility] INDICATION: R13.10: Dysphagia, unspecified type ADDITIONAL CLINICAL [...] details. Report dictated by Jacobo Gupta MD (resident care coordinator). Adiel Orourke MD have personally reviewed and interpreted this examination/study. > Interpreting Provider: Adiel Lynn MD on 10/19/2022 12:26 PM Procedure Note Adiel Lynn MD - 10/19/2022 PROCEDURE: FL SWALLOWING FUNCTION STUDY, DATE/TIME OF EXAM: 10/19/2022 8:12 AM, LOCATION [facility] INDICATION: R13.10: Dysphagia, unspecified type ADDITIONAL CLINICAL [...] details. Report dictated by Jacobo Gupta MD (resident care coordinator). I, Adiel Lynn MD have personally reviewed [...] right lateral ventricle. Similar or slightly decreased [id number]-[id number] midline shift as outlined above. 3.No evidence of hemorrhagic transformation. > Dictated by Miguel Escamilla MD (resident care coordinator). Sundar Orourke MD have personally reviewed and interpreted this examination/study. > Interpreting Provider: Sundar Devine MD on 10/17/2022 4:50 PM Narrative 10/17/2022 4:50 PM CDT PROCEDURE: CT HEAD WO CONTRAST, DATE/TIME OF EXAM: 10/17/2022 3:17 AM, LOCATION [facility] INDICATION: R53.1: Weakness ADDITIONAL CLINICAL INFORMATION: Ordering [...] DATE/TIME OF EXAM: 10/17/2022 3:17 AM, LOCATION [facility] INDICATION: R53.1: Weakness ADDITIONAL CLINICAL INFORMATION: Ordering [...] right lateral ventricle. Similar or slightly decreased [id number] midline shift as outlined above. 3.No evidence of hemorrhagic transformation. > Dictated by Miguel Escamilla MD (resident care coordinator). ISundar MD have personally reviewed and interpretedthis [...] [facility] QRS Duration ms 96 ms [facility] MUSE Q-T Interval ms 398 ms [facility] MUSE QTC Calculation (Bezet) 373 ms [facility] MUSE Calculated P [place] 9 degrees [facility] Calculated R [place] -6 degrees [facility] Calculated T [place] 86 degrees [facility] Interpretation EKG SINUS BRADYCARDIA WITH MARKED SINUS ARRYTHMIA INCOMPLETE RIGHT BUNDLE BRANCH BLOCK BORDERLINE ECG WHEN COMPARED WITH ECG OF 13-OCT-2022 08:46, PREMATURE ATRIAL COMPLEXES ARE NO LONGER PRESENT [place] INTERVAL HAS DECREASED CRITERIA FOR ANTEROLATERAL INFARCT ARE NO LONGER PRESENT NONSPECIFIC T WAVE ABNORMALITY NO LONGER EVIDENT IN INFERIOR LEADS T WAVE INVERSION NO LONGER EVIDENT IN LATERAL LEADS Confirmed by JULY LAYTON, HERMAN ([id number]) on 10/19/2022 10:38:15 PM [facility] MUSE 10/16/2022 4:41 PM CDT 10/19/2022 10:38 PM CDT Gregorio Khan MD ECG ORDERABLES [facility] M[facility] * XR ABDOMEN KUB PORTABLE (10/16/2022 12:54 PM CDT) Only the most recent of3 resultswithin the time period is included. Anatomical Region Laterality Modality Abdomen Radiographic Evelyn ging 10/16/2022 1:13 PM CDT Narrative 10/16/2022 5:21 PM CDT PROCEDURE: XR ABDOMEN KUB PORTABLE, DATE/TIME OF EXAM: 10/16/2022 12:55 PM, LOCATION [facility] INDICATION: I63.9: Ischemic stroke (CMS/HCC) ADDITIONAL CLINICAL INFORMATION: Ordering Provider Reason For Exam: NG tube placement verification COMPARISON: Abdominal radiograph 10/13/2022 FINDINGS/IMPRESSION: *Enteric tube courses below the diaphragm with the distal tip superimposing the antropyloric region. *Mild gaseous dilation of the small bowel and colon is partially visualized, similar in appearance to prior. Report dictated by Oscar Santizo MD (resident care coordinator). Ranjit Orourke MD have personally reviewed and interpreted this examination/study. > Interpreting Provider: Ranjit Nunez MD on 10/16/2022 5:21 PM Procedure Note Humera Nunez MD - 10/16/2022 PROCEDURE: XR ABDOMEN KUB PORTABLE, DATE/TIME OF EXAM: 10/16/2022 12:55PM, LOCATION [facility] INDICATION: I63.9: Ischemic stroke (CMS/HCC) ADDITIONAL CLINICAL INFORMATION: Ordering Provider Reason For Exam: NG tube placement verification COMPARISON: Abdominal radiograph 10/13/2022 FINDINGS/IMPRESSION: *Enteric tube courses below the diaphragm with the distal tipsuperimposing the antropyloric region. *Mild gaseous dilation of the small bowel and colon is partially visualized, similar in appearance to prior. Report dictated by Oscar Santizo MD (resident care coordinator). Ranjit Orourke MD have personally reviewed and interpreted this examination/study. > Interpreting Provider: Ranjit Nunez MD on 10/16/2022 5:21 PM Jorge Hall MD DIAGNOSTIC IMAGING O RDERABLES * TSH REFLEX FREE T4 (10/16/2022 12:29 AM CDT) TSH 1.008 0.350 - 4.940 uIU/mL 10/16/2022 1:26 AM CDT [facility] Blood BLOOD SPECIMEN / Unknown Venipuncture / Unknown 10/16/2022 12:29 AM CDT 10/16/2022 12:38 AM CDT Jorge Hall MD LAB - CHEMISTRY FELICE MILES [facility] [address] [address], [facility] [phone] * ECHO COMPLETE W CONTRAST W BUBBLE STUDY (10/14/2022 4:41 PM CDT) [facility] Signature BSA [id number] m2 SSM CV FUJ I PACS LV [...] BP A-L 59.29 SSM CV FUJI PACS [id number] 8.474 cm SSM CV FUJ I PACS [id number] 8.858 cm SSM CV FUJ I PACS Dimensionless Index 0.802 SSM CV FUJI PACS LV stroke vol BP 79.021 mL SSM CV FUJI PACS Anatomical Region Laterality Modality Ultrasound Narrative 10/15/2022 8:50 AM CDT Left Ventricle: Left ventricle is mildly dilated. Normal systolic function. EF by 2D Ayala biplane is 61%. Regional wall motion abnormalities present. See diagram for wall motion findings. Normal diastolic function. Left Atrium: No interatrial septum shunt present viewable with [...] Procedure Note Aliya Lombardi MD - 10/15/2022 Left Ventricle: Left ventricle is mildly dilated. Normal systolicfunction. EF by 2D Ayala biplane is 61%. Regional wall motionabnormalities present. See diagram for wall motion findings. Normaldiastolic function. Left Atrium: No interatrial septum shunt present viewable with agitatedsaline. Bertha Randolph MD ECHO CUPID * (ABNORMAL) TRIGLYCERIDES BLOOD (10/14/2022 1:18 AM CDT) Triglycerides 200(H) <150 mg/dL 10/14/2022 1:57 AM CDT [facility] Comment: ATP III Classification of Triglycerides: <150 mg/dL: Normal 150 - 199 mg/dL: Borderline High 200 - 400 mg/dL: High >500 mg/dL: Very High Blood BLOOD SPECIMEN / Unknown Venipuncture / Unknown 10/14/2022 1:18 AM CDT 10/14/2022 1:27 AM CDT Jorge Hall MD LAB - CHEMISTRY FELICE MILES [facility] [address] [place] [address], [facility] [phone] * MRI BRAIN WO CONTRAST (10/14/2022 12:00 [...] verification. Report dictated by Miguel Escamilla MD (resident care coordinator) I, Sundar Devine MD have personally reviewed and interpreted this examination/study. > Interpreting Provider: Sundar Devine MD on 10/14/2022 1:12 PM Narrative 10/14/2022 1:12 PM CDT PROCEDURE: MRI BRAIN WO CONTRAST, DATE/TIME OF EXAM: 10/14/2022 12:00 AM, LOCATION [facility] INDICATION: R53.1: Weakness ADDITIONAL CLINICAL INFORMATION: Ordering [...] CONTRAST, DATE/TIME OF EXAM: 10/14/2022 12:00AM, LOCATION [facility] INDICATION: R53.1: Weakness ADDITIONAL CLINICAL INFORMATION: Ordering [...] verification. Report dictated by Miguel Escamilla MD (resident care coordinator) I, Sundar Devine MD have personally reviewed and interpretedthis examination/study. > Interpreting Provider: Sundar Devine MD on 10/14/2022 1:12 PM Bertha Randolph MD MR ORDERABLES * (ABNORMAL) TROPONIN-I HIGH SENSITIVE (10/13/2022 3:07 PM CDT) Only the most recent of2 resultswithin the time period is included. Troponin I High Sensitive 60(H) <=35 ng/L 10/13/2022 3:49 PM CDT [facility] Blood BLOOD SPECIMEN / Unknown Venipuncture / Unknown 10/13/2022 3:07 PM CDT 10/13/2022 3:14 PM CDT Jorge Hall MD LAB - CHEMISTRY FELICE MILES [facility] [address] [place] [address], [facility] [phone] * XR CHEST 1VW PORTABLE (10/13/2022 12:10 [...] identified. Report dictated by Oscar Santizo M.D. (resident care coordinator) 10/13/2022 7:05 AM ICEDRIC MD have personally [...] identified. Report dictated by Oscar Santizo M.D. (resident care coordinator) 10/13/2022 7:05 AM I, CEDRIC FLORES MD have personally reviewed and interpreted this examination/study. > Interpreting Provider: CEDRIC FLORES MD on 10/13/2022 2:14 PM Jorge Hall MD DIAGNOSTIC IMAGING O RDERABLES * (ABNORMAL) URINE DRUG SCREEN IMMUNOASSAY (10/13/2022 6:[address] [facility]) Amphetamines Screen Urine Negative Negative : < 1000 ng/mL 10/13/2022 7:20 AM [facility] Barbiturates Screen Urine Negative Negative : < 200 ng/mL 10/13/2022 7:20 AM [facility] Benzodiazepine Screen Urine Negative Negative : < 200 ng/mL 10/13/2022 7:20 AM [facility] Opiates Urine Positive(A) Negative : < 300 ng/mL 10/13/2022 7:20 AM [facility] Comment:Positive urine opiat e screening results should be confirmed by another generally accepted non-immunological method such as gas chromatography or mass spectrometry. Cocaine Metabolites Urine Negative Negative : < 300 ng/mL 10/13/2022 7:20 AM [facility] Phencyclidine Screen Urine Negative Negative : < 25 ng/ml 10/13/2022 7:20 AM [facility] Cannabinoids Screen Urine Negative Negative : <50 ng/mL 10/13/2022 7:20 AM [facility] Methadone Screen Urine Negative Negative : < 300 ng/mL 10/13/2022 7:20 AM [facility] Fentanyl Screen Urine Negative Negative : <1.5 ng/mL 10/13/2022 7:20 AM [facility] Urine URINE / Unknown Collection / Unknown 10/13/2022 6:40 AM CDT 10/13/2022 6:44 AM CDT [facility] [place] - 10/13/2022 7:20 AM CDT The Urine Toxicology Screening Panel does not screen for Propoxyphene, Meprobamate, Carisoprodol, Trazodone, euqj-xtg-mjqafwv medications and/or volatiles (Acetone, Isopropanol, Methanol or Ethylene Glycol). Ethanol, Salicylate, Acetaminophen, Tricyclic Antidepressants and several therapeutic drugs may be individually assayed in serum or plasma specimen. Toxicology testing by the [facility] is an aid to medical diagnosis and treatment of patients. No documented chain of custody was maintained. Results are intended to be used for clinical purposes only. Bertha Randolph MD LAB - URINE CHEMISTR Y ORDERABLES [facility] [address] [place] [address], [facility] [phone] * (ABNORMAL) BLOOD GASES ART + COOX PANEL (10/13/2022 5:35 AM CDT) Only the most recent of3 resultswithin the time period is included. pH Arterial 7.31(L) 7.35 - 7.45 pH 10/13/2022 5:52 AM [facility] pO2 Arterial 134(H) 80 - 100 mmHg 10/13/2022 5:52 AM [facility] pCO2 Arterial 37 35 - 45 mmHg 5:52 AM [facility] HCO3 Arterial 18.6(L) 20.0 - 30.0 mmol/L 10/13/2022 5:52 AM [facility] BE Arterial -7.0(L) -2.0 - 2.0 mmol/L 10/13/2022 5:52 AM [facility] Oxyhemoglobin Arterial 97.5 % 10/13/2022 5:52 AM [facility] Dexoyhemoglobin (HHB) % 0.0 % 10/13/2022 5:52 AM [facility] Methemoglobin 1.0 0.0 - 2.0 % 10/13/2022 5:52 AM [facility] Carboxyhemoglobin 1.4 0.0 - 2.0 % 2022 5:52 AM [facility] O2 Content Arterial 16.7 Interpret within clinical context ml/dL 10/13/2022 5:52 AM [facility] Hemoglobin by COOX 12.0 12.0 - 17.6 g/dL 10/13/2022 5:52 AM [facility] O2 Saturation Arterial 100 90 - 100 % 10/13/2022 5:52 AM [facility] FI O2 Arterial 50.0 % 10/13/2022 5:52 AM [facility] Blood, arterial ARTERIAL BLOOD SPECIMEN / Unknown Arterial Puncture / Unknown 10/13/2022 5:35 AM CDT 10/13/2022 5:42 AM [facility] - 10/13/2022 5:[address] [facility] Carboxyhemoglobin Normal Concentration: Non-smokers: 0-2%; Smokers: 0-9%; Toxic: >20% Jorge Hall MD LAB - BLOOD GASES OR DERABLES [facility] [address] [place] [phone], [facility] [phone] * (ABNORMAL) LIPID PROFILE (10/13/2022 2:28 AM CDT) Only the most recent of2 resultswithin the time period is included. Cholesterol Total 148 <200 mg/dL 10/13/2022 3:05 AM [facility] HDL 40(L) >40 mg/dL 10/13/2022 3:05 AM [facility] Comment: ATP III Classification of HDL Cholesterol: <40 mg/dL: Considered a major risk factor. >60 mg/dL: Considered a negative risk factor. LDL Calculated 85 <100 mg/dL 10/13/2022 3:05 AM [facility] Comment: ATP III Classification of LDL Cholesterol: <100 mg/dL: Optimal 100 - 129 mg/dL: Near Optimal/Above Optimal 130 - 159 mg/dL: Borderline High 160 - 189 mg/dL: High >190 mg/dL: Very High Triglycerides 117 <150 mg/dL 10/13/2022 3:05 AM CDT [facility] Comment: ATP III Classification of Triglycerides: <150 mg/dL: Normal 150 - 199 mg/dL: Borderline High 200 - 400 mg/dL: High >500 mg/dL: Very High Blood BLOOD SPECIMEN / Unknown Venipuncture / Unknown 10/13/2022 2:28 AM CDT 10/13/2022 2:37 AM CDT Bertha Randolph MD LAB - CHEMISTRY FELICE MILES [facility] Organization Address City/State/ZIP Co de Phone Number [facility] [address] [place] [address], [facility] [phone] * CT NECK SOFT TISSUE W CONT [...] verification. > Dictated by Dean Cleveland M.D. (resident care coordinator) ISundar MD have personally reviewed and interpreted this examination/study. > Interpreting Provider: Sundar Devine MD on 10/13/2022 10:39 AM Narrative 10/13/2022 10:39 AM CDT PROCEDURE: CT NECK SOFT TISSUE W CONT, DATE/TIME OF EXAM: 10/13/2022 1:29 AM, LOCATION [facility] INDICATION: R06.00: Dyspnea, unspecified type ADDITIONAL CLINICAL [...] CONT, DATE/TIME OF EXAM: :29 AM, LOCATION [facility] INDICATION: R06.00: Dyspnea, unspecified type ADDITIONAL CLINICAL [...] verification. > Dictated by Dean Cleveland M.D. (resident care coordinator) ISundar MD have personally reviewed and interpretedthis examination/study. > Interpreting Provider: Sundar Devine MD on 10/13/2022 10:39 AM Jorge Hall MD CT ORDERABLES * TROPONIN-I HIGH SENSITIVE REFLEX 1HOUR (10/12/2022 10:31 PM CDT) Troponin I High Sensitive 14 <=35 ng/L 10/12/2022 11:26 PM CDT [facility] Delta Troponin I HS 10/12/2022 11:26 PM CDT [facility] Comment:Delta value intentio queenie not calculated. Baseline to 1 hour specimen collection interval exceeded. Blood BLOOD SPECIMEN / Unknown Venipuncture / Unknown 10/12/2022 10:31 PM CDT 10/12/2022 10:36 PM CDT Bertha Randolph MD LAB - CHEMISTRY FELICE MILES [facility] Organization Address City/State/ZIP Co de Phone Number [facility] [address] [place] [address], [facility] [phone] * (ABNORMAL) HEMOGLOBIN A1C (10/12/2022 10:31 PM CDT) Only the most recent of2 resultswithin the time period is included. Hemoglobin A1c 7.7(H) <=5.6 % 10/13/2022 8:30 AM CDT [facility] Estimated Average Glucose 174 mg/dL 10/13/2022 8:30 AM CDT [facility] Comment: HbA1c Interpretation: Normal : < 5.7% Pre-diabetes: 5.7-6.4% Diabetes: Equal to or greater than 6.5% Test results diagnostic of diabetes should be repeated for confirmation. Treatment target values recommended by ADA and other clinical organizations should be used to evaluate metabolic control in patients. Reference: [place] [employer], Standards of Care in Diabetes [...] - CHEMISTRY FELICE MILES Performing Organization Address [facility]/ZIP Co de Phone Number [facility] [address] [place] [address], [place] [phone] * PT-INR [facility] (10/12/2022 8:21 PM CDT) Only the most recent of3 resultswithin the time period is included. PT 13.8 12.1 - 14.8 Seconds 10/12/2022 8:58 PM CDT [facility] INR 1.1 See Comment 10/12/2022 8:58 PM CDT [facility] Comment:The suggested therap eutic range for standard coumadin (warfarin) therapy is an INR of 2.0-3.0. For high-risk patients (Mechanical Mitral Valve Prosthesis, etc.), the suggested prophylactic therapeutic range is an INR of 2.5-3.5. Blood BLOOD SPECIMEN / Unknown Venipuncture / Unknown 10/12/2022 8:21 PM CDT 10/12/2022 8:35 PM CDT Ketan Snowden MD LAB - COAGULATION OR DERABLES Performing Organization Address [facility] Co de Phone Number [address] [address], [place] [phone] * TROPONIN-I HIGH SENSITIVE BASELINE + 1HR (10/12/2022 8:21 PM CDT) Troponin I High Sensitive 13 <=35 ng/L 10/12/2022 9:09 PM CDT [facility] Blood BLOOD SPECIMEN / Unknown Venipuncture / Unknown 10/12/2022 8:21 PM CDT 10/12/2022 8:35 PM CDT Bertha Randolph MD LAB - CHEMISTRY FELICE MILES Performing Organization Address City/[facility]/ZIP Co de Phone Number [facility] [address] [place] [address], [facility] [phone] * CT ANGIO BRAIN NECK STROKE (10/12/2022 7:42 PM CDT) Anatomical Region Laterality Modality Head Computed Tomogra phy 10/12/2022 7:52 PM CDT Impressions 10/12/2022 8:51 PM CDT IMPRESSION: 1.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 Diminished opacification of the right [...] communication. Report dictated by Gilbert Morrow MD (resident care coordinator). I, Zelda Willams MD, PhD have personally reviewed and interpreted this examination/study. > Interpreting Provider: Zelda Willams MD, PhD on 10/12/2022 8:51 PM Narrative 10/12/2022 8:51 PM CDT EXAM: CT ANGIO BRAIN NECK STROKE, DATE/TIME OF EXAM: 10/12/2022 7:42 PM, LOCATION: [facility] HISTORY: Code Stroke EXAMINATION: CT angiogram images [...] right middle cerebral artery (MCA) via the ely [place]/patent anterior communicating artery. Diminished opacification [...] DATE/TIME OF EXAM: 10/12/2022 7:42 PM, LOCATION: [facility] HISTORY: Code Stroke EXAMINATION: CT angiogram images [...] and right middle cerebral artery (MCA)via the ely [place]/patent anterior communicating artery. Diminished opacification [...] to the right SHEA andMCA via the ely [place] of [place]. Diminished opacification of the right [...] communication. Report dictated by Gilbert Morrow MD (resident care coordinator). I, Zelda Willams MD, PhD have personally [...] DATE/TIME OF EXAM: 10/12/2022 7:32 PM, LOCATION: [facility] HISTORY: Code Stroke EXAMINATION: CT scan of [...] infarct involving the right posterior cerebral artery (CHIEF METEOROLOGIST) vascular territory. Multiple small chronic lacunes of [...] of the carotid siphons. Procedure Note Zelda Wilalms MD - 10/12/2022 EXAM: CT BRAIN STROKE, DATE/TIME OF EXAM: 10/12/2022 7:32 PM, LOCATION:[facility] HISTORY: Code Stroke EXAMINATION: CT scan of [...] infarct involving the right posterior cerebral artery (CHIEF METEOROLOGIST) vascular territory. Multiple small chronic lacunes of [...] is here for catheter angiography to . Director Of Outside Sales: Jc Addison Physician General Practice(s): [facility]y [facility] Vessels: Ultrasound Guided Access of Radial Artery Right Radial Artery Angiogram Left Subclavian Artery Angiogram: Cervical and Cerebral Left Vertebral Artery Angiogram: Cervical and Cerebral Left Common Carotid Artery Angiogram: Cervical and Cerebral Right Common Carotid Artery Angiogram: Cervical and Cerebral Right Subclavian Artery Angiogram: Cervical and Cerebral Anesthesia: Moderate sedation on this adult patient was ordered by the turner machine operator, administered intravenously in my presence, and monitored by the procedure nurse as an independent trained observer who was present throughout the procedure. The following parameters were monitored: oxygen saturation, heart rate, blood pressure, and response to care. Total physician intra-service sedation time was 27 mins. For details on sedation patient evaluation, please review the evaluation in [facility]. For details on monitored clinical parameters during the intra-service sedation time, please review the procedure nurse documentation in [facility]. Procedural detail: The risks, benefits, and [...] Following a series of exchanges, a 5 Irish 11 cm Glidesheath slender was placed in the radial artery. A radial angiogram was performed through the sheath. A spasmolytic cocktail containing 3000u heparin, 2.5mg verapamil, and 200mcg of nitroglycerin was administered. A 5 Irish Glidecath Case 2 diagnostic catheter along with [...] He is here for catheter angiography to. Director Of Outside Sales: Jc Addison Physician General Practice(s): Christy Bolivar Vessels: Ultrasound Guided Access of Radial Artery Right Radial Artery Angiogram Left Subclavian Artery Angiogram: Cervical and Cerebral Left Vertebral Artery Angiogram: Cervical and Cerebral Left Common Carotid Artery Angiogram: Cervical and Cerebral Right Common Carotid Artery Angiogram: Cervical and Cerebral Right Subclavian Artery Angiogram: Cervical and Cerebral Anesthesia: Moderate sedation on this adult patient was ordered by the turner machine operator, administered intravenously in my presence, and monitored [facility] as an independent trained observer who was present throughout the procedure. The following parameters were monitored: oxygen saturation, heart rate, blood pressure, and response to care. Total physician intra-service sedation time was 27 mins. For details on sedation patient evaluation, please review the evaluation in [facility]. For details onmonitored clinical parameters during the intra-service sedation time, pleasereview the procedure nurse documentation in [facility]. Procedural detail: The risks, benefits, and [...] needle. Followinga series of exchanges, a 5 Irish 11 cm Glidesheath slender was placed inthe radial artery. A radial angiogram was performed through the sheath. A spasmolytic cocktail containing 3000u heparin, 2.5mg verapamil, [id number] of nitroglycerin was administered. A 5 Irish Glidecath Case 2 diagnostic catheter along with [...] 0.046(H) <0.032 ng/mL 12/13/2021 3:48 AM CDT [facility] Blood BLOOD SPECIMEN / Unknown Lab Venipuncture / Unknown 12/13/2021 3:01 AM CDT 12/13/2021 3:11 AM CDT Jorge Hall MD LAB - CHEMISTRY FELICE MILES [facility] [address] [place] [address] [phone] * VAS TRANSCRANIAL DOPPLER COMP (12/12/2021 5:24 [...] Procedure Note Alan Powell MD - 12/13/2021 Jogre Hall MD VASCULAR LAB ORDERAB LES * [...] proximal right MCA upto the bifurcation on wqnw-sh-azujjc imaging with the opacification on postcontrast imaging. The report was drafted by Maryana Sanderson MD (Oracle R12 Developer). Critical results discussed with Dr. Becker by Dr. Sanderson on 12/12/2021 at 8:41 AM. I, Re Sage Dr have personally reviewed and interpreted this examination/study. > Interpreting Provider: Re Sage Dr on 12/12/2021 10:13 AM Narrative 12/12/2021 10:13 AM CDT PROCEDURE: MRI ANGIO BRAIN ARTERIAL WO CONT, MRI BRAIN WO CONTRAST, MRI ANGIO NECK W CONTRAST, DATE/TIME OF EXAM: 12/11/2021 8:31 PM, LOCATION [facility] INDICATION: Left leg weakness ADDITIONAL CLINICAL INFORMATION: Ordering Provider Reason For Exam: left leg weakness; hx of old strokes (accession [id number]). COMPARISON: CT brain dated 12/11/2021 at 12:10 [...] secondary to slow flow, on the noncontrast yvxu-nd-xfxiyl imaging. However there is opacification of these segments including cavernous ICA terminus and M1 segments on postcontrast imaging. *Left carotid system: Patent ICA. No focal stenosis. Patent SHEA and MCA. Normal anterior communicating artery. Slightly larger caliber left ICA. *Posterior circulation: Patent vertebral arteries and basilar artery without stenosis. Patent hand roller engraver. There is origin of left CHIEF METEOROLOGIST. There is no aneurysm. MRA neck: Artifact [...] CONTRAST, DATE/TIME OF EXAM: 12/11/2021 8:31 PM, [facility] INDICATION: Left leg weakness ADDITIONAL CLINICAL INFORMATION: Ordering Provider Reason For Exam: left leg weakness; hx of old strokes (accession [id number]). COMPARISON: CT brain dated 12/11/2021 at 12:10 [...] secondary to slow flow, on the noncontrast abbn-kl-kpclme imaging. However there is opacification of these segments including cavernous ICA terminus and M1 segments on postcontrastimaging. *Left carotid system: Patent ICA. No focal stenosis. Patent SHEA and MCA. Normal anterior communicating artery. Slightly larger caliber left ICA. *Posterior circulation: Patent vertebral arteries and basilar artery without stenosis. Patent hand roller engraver. There is origin of left CHIEF METEOROLOGIST. There is no aneurysm. MRA neck: Artifact [...] terminus, proximal right MCA upto the bifurcationon xycm-qo-mxvisb imaging with the opacification on postcontrast imaging. The report was drafted by Maryana Sanderson MD (Oracle R12 Developer). Critical results discussed with Dr. Becker by Dr. Sanderson on 12/12/2021 at 8:41 AM. I, Re Sage Dr have personally reviewed and interpreted this examination/study. > Interpreting Provider: Re Sage Dr on 12/12/2021 10:13 AM Bravo Woodson NURSE MONITORING-CAR ATTENDANT MR ORDERABLES * MRI ANGIO NECK W [...] proximal right MCA upto the bifurcation on lnqp-hj-mwnxrt imaging with the opacification on postcontrast imaging. The report was drafted by Maryana Sanderson MD (Oracle R12 Developer). Critical results discussed with Dr. Becker by Dr. Sanderson on 12/12/2021 at 8:41 AM. I, Re Sage Dr have personally reviewed and interpreted this examination/study. > Interpreting Provider: Re Sage Dr on 12/12/2021 10:13 AM Narrative 12/12/2021 10:13 AM CDT PROCEDURE: MRI ANGIO BRAIN ARTERIAL WO CONT, MRI BRAIN WO CONTRAST, MRI ANGIO NECK W CONTRAST, DATE/TIME OF EXAM: 12/11/2021 8:31 PM, LOCATION [facility] INDICATION: Left leg weakness ADDITIONAL CLINICAL INFORMATION: Ordering Provider Reason For Exam: left leg weakness; hx of old strokes (accession [id number]). COMPARISON: CT brain dated 12/11/2021 at 12:10 [...] secondary to slow flow, on the noncontrast nlyl-ac-ljumup imaging. However there is opacification of these segments including cavernous ICA terminus and M1 segments on postcontrast imaging. *Left carotid system: Patent ICA. No focal stenosis. Patent SHEA and MCA. Normal anterior communicating artery. Slightly larger caliber left ICA. *Posterior circulation: Patent vertebral arteries and basilar artery without stenosis. Patent hand roller engraver. There is origin of left CHIEF METEOROLOGIST. There is no aneurysm. MRA neck: Artifact [...] CONTRAST, DATE/TIME OF EXAM: 12/11/2021 8:31 PM, [facility] INDICATION: Left leg weakness ADDITIONAL CLINICAL INFORMATION: Ordering Provider Reason For Exam: left leg weakness; hx of old strokes (accession [id number]). COMPARISON: CT brain dated 12/11/2021 at 12:10 [...] secondary to slow flow, on the noncontrast [id number] imaging. However there is opacification of these segments including cavernous ICA terminus and M1 segments on postcontrastimaging. *Left carotid system: Patent ICA. No focal stenosis. Patent SHEA and MCA. Normal anterior communicating artery. Slightly larger caliber left ICA. *Posterior circulation: Patent vertebral arteries and basilar artery without stenosis. Patent hand roller engraver. There is origin of left CHIEF METEOROLOGIST. There is no aneurysm. MRA neck: Artifact [...] terminus, proximal right MCA upto the bifurcationon [id number] imaging with the opacification on postcontrast imaging. The report was drafted by Maryana Sanderson MD (Oracle R12 Developer). Critical results discussed with Dr. Becker by Dr. Sanderson on 12/12/2021 at 8:41 AM. I, Re Sage Dr have personally reviewed and interpreted this examination/study. > Interpreting Provider: Re Sage Dr on 12/12/2021 10:13 AM Bravo Woodson APRN-CAR ATTENDANT MR ORDERABLES * BLOOD TYPE VERIFICATION (12/11/2021 3:21 PM CDT) ABO Rh A POS 12/11/2021 4:0 2 PM CDT [facility] Blood Bank BLOOD SPECIMEN / Unknown Venipuncture / Unknown 12/11/2021 3:21 PM CDT 12/11/2021 3:36 PM CDT Tere Dodd MD LAB - BLOOD BANK ORD ERABLES [facility] [address] [place] [address], [facility] [phone] * ECHO COMPLETE W BUBBLE STUDY (12/11/2021 2:36 PM CDT) Anatomical Region Laterality Modality Chest Echo 12/11/2021 1:50 PM CDT Narrative Procedure Note Aliya Lombardi MD - 12/11/2021 Bravomikayla Woodson APRN-CAR ATTENDANT ECHOCARDIOGRAPHY R ADIANT * PTT [facility] (12/11/2021 12:27 PM CDT) APTT 35.2 23.0 - 38.4 Seconds 12/11/2021 1:13 PM CDT [facility] Comment:Suggested therapeuti c range for full dose I.V. unfractionated heparin therapy for venous thromboembolism is 71 to 109 seconds. Blood BLOOD SPECIMEN / Unknown Venipuncture / Unknown 12/11/2021 12:27 PM CDT 12/11/2021 12:33 PM CDT Ricardo Andino PA-C LAB - COAG ULATION ORDERABLES [address] [address], [place] [phone] * TYPE + SCREEN PANEL (12/11/2021 12:27 PM CDT) Pathologist [facility] Antibody Screen NEG 1:21 PM CDT [facility] ABO Rh A POS 12/11/2021 1:21 PM CDT [facility] Blood Bank BLOOD SPECIMEN / Unknown Venipuncture / Unknown 12/11/2021 12:27 PM CDT 12/11/2021 12:37 PM CDT Ketan Snowden MD LAB - BLOOD BANK ORD ERABLES Performing Organization Address City/[facility]/ZIP Co de Phone Number [facility] [address] [place] [id number], [facility] [phone] * INR WHOLE BLOOD - POINT OF CARE (IP) STROKE (12/11/2021 12:14 PM CDT) [facility] INR 1.0 0.9 - 1.2 12/11/2021 2:30 PM CDT [facility] Device [id number] 12/11/2021 2:30 PM CDT [facility] Director Of Outside Sales ID [id number] 12/11/2021 2:30 PM CDT [facility] Blood BLOOD SPECIMEN / Unknown 12/11/2021 12:14 PM CDT 12/11/2021 2:30 PM CDT Ketan Snowden MD LAB - POINT OF CARE ORDERABLES Performing Organization Address City/[facility]/ZIP Co de Phone Number [address] [address], [place] [phone] * (ABNORMAL) CREATININE - POCT INTERFACED (12/11/2021 12:14 PM CDT) [facility] Creatinine POCT 1.25 0.30 - 1.30 mg/dL 12/11/2021 2:40 PM CDT [facility] eGFR 64(L) >90 mL/min/1.7 3 m2 12/11/2021 2:40 PM CDT [facility] Blood BLOOD SPECIMEN / Unknown 12/11/2021 12:14 PM CDT 12/11/2021 2:40 PM CDT Ketan Snowden MD LAB - POINT OF CARE ORDERABLES [facility] [address] [place] [address], [facility] [phone] Care Teams Resource Efficiency Manager Relationship Specialty Start Date End Date Ly Valenzuela MD [address] [place] [id number] PCP - General 03/06/22
--- OUTSIDE RECORDS SUMMARY | 2024-07-12 07:08 | XMS_ITS | Encounter Summary ---
Author Organization [facility] Health Address [address] [place] [address] Care Team Providers Care Bank Appraiser Name Role Phone Ly Valenzuela MD Primary Care Provider Encounter Details Date Type Department Care Team (Latest Contact Info) Description 10/28/2022 11:43 AM CDT Hospital Encounter [address] [place] [address] Carolina Garibay MD [address] [place] [address] [facility] Social History Tobacco Use Types [...] Date Recorded PHQ2 TOTAL SCORE 0 12/13/2021 [facility] [place] of Occupat ional Health - Occupational Stress [...] on filedocumented in this encounter Care Teams Bank Appraiser Relationship Specialty Start Date End Date Ly Valenzuela MD [address] [place] [address] PCP - General 03/06/22 documented as of this encounter
[2024-07-12 09:40] VITALS: BP 148/61; PULSE 61; RESP 20; O2SAT 98
== END 2024-07-12 09:42 ==
LOC: ANHED 07:05
PROVIDERS: Emergency Provider Emergency Medicine
DX: N13.2 Hydronephrosis with renal and ureteral calculous obstruction (principal); Z20.822 Contact with and (suspected) exposure to COVID-19; I25.10 Atherosclerotic heart disease of native coronary artery without angina pectoris; I10 Essential (primary) hypertension; I69.998 Other sequelae following unspecified cerebrovascular disease; E11.9 Type 2 diabetes mellitus without complications; J44.9 Chronic obstructive pulmonary disease, unspecified; N40.0 Benign prostatic hyperplasia without lower urinary tract symptoms; G47.33 Obstructive sleep apnea (adult) (pediatric); F17.210 Nicotine dependence, cigarettes, uncomplicated; Z95.5 Presence of coronary angioplasty implant and graft; Z90.49 Acquired absence of other specified parts of digestive tract; Z79.4 Long term (current) use of insulin; Z79.82 Long term (current) use of aspirin; Z79.84 Long term (current) use of oral hypoglycemic drugs; Z79.899 Other long term (current) drug therapy; R00.1 Bradycardia, unspecified; I44.0 Atrioventricular block, first degree
CPT/HCPCS: 36415; 74177; 80053; 81001; 83605; 83735; 84484; 85025; 85610; 85730; 87637; 93005; 96361; 96372; 96374; 96375; 99284; A9270; J0500; J0780; J2405; J7030; Q9967

== ENCOUNTER 2024-11-13 13:22 | Inpatient (IN) | payer MEDICARE, MEDICAID, SELFPAY ==
[2024-11-13] VITALS (31 sets, daily range): BP systolic 77–129; BP diastolic 40–79; PULSE 45–56; RESP 11–23; TEMP 36.3–36.9; O2SAT 88–100; BMI 30.9
--- NOTE | ~2024-11-13 | US_ITS ---
Renal-Bladder ultrasound Clinical History: Acute renal failure Technique: Real-time sonographic imaging of the kidneys and urinary bladder was performed. Findings: The right kidney measures 8.5 cm in length and the left kidney measures 11.0 cm. There is n o hydronephrosis or renal calculus identified. Renal cortical echogenicity is within normal limits. N o renal mass lesion is identified. The urinary bladder is moderately distended at the time of this exam. No intraluminal echoes are iden tified. No abnormal wall thickening is seen. Impression: No definite abnormality seen. Visualization of the kidneys is somewhat suboptimal related to patient body habitus. Reviewed, dictated and finalized at location . Impression: No definite abnormality seen. Visualization of the kidneys is somewhat suboptim al related to patient body habitus.
--- NOTE | ~2024-11-13 | XR_ITS ---
EXAM/PROCEDURE: XR chest port-a-cath/central - 11/17/2024 15:05 CDT HISTORY: 69 years old Male with dialysis catheter placement TECHNIQUE: Two view(s) of the chest. COMPARISON: None available. FINDINGS: LUNGS/ PLEURA: No focal consolidation. No appreciable pneumothorax or large pleural effusion. HEART/ MEDIASTINUM: Mild cardiomegaly. BONES: Degenerative changes. OTHER: Visualized upper abdomen is unremarkable. Tip of the enteric tube extends beyond the field of view. Tip of the temporary dialysis catheter is at the cavoatrial junction. IMPRESSION: Tip of the temporary dialysis catheter is at the cavoatrial junction. Reviewed, dictated and finalized at location A.
--- NOTE | ~2024-11-13 | XR_ITS ---
XR abdomen/kub 1V Ordering provider: Ryanne Copeland PA-C History: . SBO . Comparison: November 17, 2024 FINDINGS: BOWEL: Distended bowel loops seen in the upper abdomen which may indicate obstruction. CT evaluation advised to exclude closed loop obstruction. Nasogastric tube with the tip in the stomach. ORGANOMEGALY: None. SIGNIFICANT PATHOLOGIC CALCIFICATIONS: None. Bilateral double-J stent. OTHER: No free air is seen under the diaphragm. IMPRESSION: Distended bowel loops which may indicate obstruction. Follow-up advised. Bilateral double-J stents. Reviewed, dictated and finalized at location A.
--- NOTE | ~2024-11-13 | XR_ITS ---
EXAMINATION: XR lumbar puncture diagnostic DATE: 11/17/2024 13:53 INDICATION: Altered mental status TECHNIQUE: The procedure including the risks and benefits was discussed with the patient's mother who provided written consent. Risks discussed included cerebrospinal fluid leak, bleeding, nerve injury and infection. A timeout was performed to verify the patient's name, date of , and procedure t o be performed. The skin overlying the L2-L3 level was prepped and draped in usual sterile fashion. Subcutaneous 1% lidocaine was used for local anesthesia. A 22 gauge spinal needle was advanced unde r fluoroscopic guidance. The needle was removed and the entry site was cleaned and dressed. There we re no immediate complications. A total of 2 fluoroscopic images and 2 crosstable lateral radiographs were obtained. The amount of fluoroscopy time used during this procedure was 1.0 minutes.. Total DAP was 15.739 mGycm^2. There were no immediate complications. The patient was returned to the floor in u nchanged condition. FINDINGS: Real-time fluoroscopy demonstrates the needle at the L2-L3 level. Opening pressure was 19 c m water. (Normal range is variably defined as 6-20 cm water and up to 25 cm water in obese patients. Pressure >25 cm water is one of the modified Dandy criteria for idiopathic intracranial hypertension) . Routine mL of clear, colorless fluid was collected in 4 tubes. IMPRESSION: 1. Successful fluoro-guided lumbar puncture with normal opening pressure of 19 cm water. Reviewed, dictated and finalized at location A.
--- NOTE | ~2024-11-13 | XR_ITS ---
EXAM/PROCEDURE: XR chest 1V portable - 11/13/2024 14:10 CDT HISTORY: 69 years old Male with weakness TECHNIQUE: Two view(s) of the chest. COMPARISON: None available. FINDINGS: LUNGS/ PLEURA: No focal consolidation. Mild perihilar bronchial wall thickening. HEART/ MEDIASTINUM: Heart appears normal in size. BONES: No acute osseous abnormality. OTHER: Visualized upper abdomen is unremarkable. IMPRESSION: No focal consolidation. Mild perihilar bronchial wall thickening, findings suggestive of respiratory bronchiolitis. Reviewed, dictated and finalized at location A. IMPRESSION: No focal consolidation. Mild perihilar bronchial wall thickening, findings sugg estive of respiratory bronchiolitis.
--- NOTE | ~2024-11-13 | XR_ITS ---
EXAMINATION: XR enema water soluble DATE: 11/21/2024 11:47 INDICATION: Ileorectal stricture/obstruction TECHNIQUE: A market president radiograph was obtained. A catheter was inserted into the patient's rectum. Water- soluble contrast was infused by gravity. A total of 2 overhead radiographs and 44 fluoroscopic images were recorded. Fluoroscopy exposure time was 1.0 minutes. COMPARISON: None. FINDINGS: Ad Clerk radiograph demonstrates nasogastric tube with tip in proximal side port projecting over the bod y the stomach. There is dilated gas-filled loops of bowel in the central abdomen. Bilateral nephrolit hiasis with internal ureteral stents in expected positions. A few phleboliths in the pelvis. Retrograde administered contrast fills the rectum and remaining distal sigmoid colon. There is transi ent impediment to flow near the ileocolic anastomosis which appears to correspond to the site of the 360 degrees twist in the distalmost small bowel. Initially the small bowel at this location remained relatively decompressed with vascular small amount of contrast beyond the focal narrowing. There is t ransiently dilates to a near-normal caliber with passage or extension of contrast into the more proxi mal small bowel. At the conclusion of the procedure the enema bag was lowered to allow for drainage b y siphon of the contrast in the rectum. There was subsequent antegrade passage of gas and contrast be yond the region of transient narrowing. IMPRESSION: 1. Short segment of relatively narrowed small bowel immediately proximal to a pelvic ileocolic anasto mosis with location and appearance of the narrowed segment consistent with 360 degrees twist in the b owel as seen on prior CT. There is however no significant secondary fixed obstruction with transient distention of the segment of bowel to a normal caliber with passage of contrast initially retrograde into the more proximal colon and subsequently antegrade during evacuation of the contrast. Reviewed, dictated and finalized at location A. IMPRESSION: 1. Short segment of relatively narrowed small bowel immediately proximal to a p elvic ileocolic anastomosis with location and appearance of the narrowed segmen t consistent with 360 degrees twist in the bowel as seen on prior CT. There is however no significant secondary fixed obstruction with transient distention of the segment of bowel to a normal caliber with passage of contrast initially re trograde into the more proximal colon and subsequently antegrade during evacuat ion of the contrast.
--- NOTE | ~2024-11-13 | XR_ITS ---
Exam: Abdomen 1V HISTORY: bowel obstruction COMPARISON: Reference is made to CT examination of the abdomen and pelvis dated 11/15/2024 TECHNIQUE: Supine images of the abdomen FINDINGS: Aerated fecal stasis is identified within the rectum. Prominence of small and large bowel are identified within the upper abdomen without brandon dilatation. Decompressed, aerated small bowel with mural thickening is redemonstrated within the left mid to lowe r abdomen. There is no free air or deep sulci. Bilateral double-J stents. IMPRESSION: Likely partial, intermittent bowel obstruction, as detailed above. Reviewed, dictated and finalized at location A.
--- NOTE | ~2024-11-13 | XR_ITS ---
INTRAOPERATIVE FLUOROSCOPY: CLINICAL HISTORY: 69 years old Male; BILATERAL RETRO CYSTO STENT PLACEMENT PROCEDURE COMMENTS: Limited intraoperative fluoroscopy of the retroperitoneum was performed. CUMULATIVE DOSE: 10.5 mGy FLUOROSCOPY TIME: 24.5 seconds FINDINGS/IMPRESSION: Please refer to operative note for further details. Reviewed, dictated and finalized at location A.
--- NOTE | ~2024-11-13 | XR_ITS ---
Exam: Abdomen 1V HISTORY: NG tube placement COMPARISON: None. Reference is made to prior CT examinations of the abdomen and pelvis. TECHNIQUE: Supine images of the lower chest and upper abdomen FINDINGS: Nasogastric tube extends into the left upper quadrant, presumably within the stomach. The air opacified stomach now projects across the midline, which is markedly abnormal. No deep sulcus sign is identified. The appearance may simply be due to patient positioning, for which clinical correlation is needed. IMPRESSION: Nasogastric tube projects over the left upper quadrant, as detailed above. Reviewed, dictated and finalized at location A.
--- NOTE | ~2024-11-13 | MR_ITS ---
EXAMINATION: MR brain/brain stem wo con DATE: 11/16/2024 13:49 INDICATION: Altered mental status. Assess for stroke. TECHNIQUE: Magnetic resonance imaging (MRI) of the brain and brainstem was performed without intraven ous contrast. Sequences included sagittal and axial T1-weighted SE, axial diffusion-weighted FS SE, a xial T2*-weighted GRE, axial T2-weighted FLAIR, and axial T2-weighted FSE. Apparent diffusion coeffic ient (ADC) maps were created. COMPARISON: Head CT dated 11/14/2024 and 11/21/2022 FINDINGS: Again seen is a large region of encephalomalacia involving the majority of the right frontal and temp oral lobes, a significant portion of the right parietal lobe and the right basal ganglia in the vascu lar distribution of the right middle cerebral artery, also likely including portion of the right ante rior cerebral artery vascular distribution. There is a separate small additional region of insufflati on consistent with chronic infarct in the right occipital lobe. A couple very small old infarcts in t he left frontal lobe. Finally there is a small old infarct in the left cerebral hemisphere. These all appear to have been present at the time of the study on 11/21/2022. There are no areas of restricted diffusion to suggest acute infarction. There is asymmetric atrophy l ikely related to Wallerian degeneration of the right thalamus, right cerebral peduncle and right side of the faby. No intracranial hemorrhage or abnormal intracranial mass lesion. A few small scattered foci of nonspecific increased T2-weighted signal intensity in the cerebral white matter, predominantl y involving the deep and periventricular white matter. There are no intraparenchymal signal abnormali ties seen on the other pulse sequences. There is asymmetric mild ex vacuo dilation of the right later al ventricle. There are no abnormal extra-axial fluid collections. Flow voids are seen in the cerebra l arteries on the T2-weighted sequences consistent with their expected patency. The flow void in the right internal carotid artery appears very small which could be due to atherosclerotic disease or mor e likely decreased perfusion requirement secondary to the extensive infarction in the right cerebral hemisphere. Changes of bilateral intraocular lens replacement. IMPRESSION: 1. No significant change in chronic infarcts, the largest involving the plantar to the right middle c erebral and portions of the anterior cerebral artery vascular distribution. No acute intracranial pro cess. Reviewed, dictated and finalized at location A. IMPRESSION: 1. No significant change in chronic infarcts, the largest involving the plantar to the right middle cerebral and portions of the anterior cerebral artery vasc ular distribution. No acute intracranial process.
--- NOTE | ~2024-11-13 | NM_ITS ---
EXAMINATION: NM_HEPATWP_NM DATE: 11/15/2024 15:20 INDICATION: Possible cholecystitis. COMPARISON: None. TECHNIQUE: 4.3 mCi Tc-99m mebrofenin (Choletec) was administered intravenously. Scintigraphic images of the abdomen were obtained for one hour. 2.1 mcg sincalide (Kinevac) was administered by slow intr avenous infusion, and imaging was continued for 30 minutes. Gallbladder ejection fraction was calcula david by the technologist. FINDINGS: There is normal clearance of radiotracer from the blood pool. There is homogeneous tracer uptake by t he liver. Activity progresses to the gallbladder and bowel. The gallbladder ejection fraction (GBEF) is 56% (normal 10-90%, but most patient with gallbladder dysfunction have GBEF < 35% which does over lap with the normal range). IMPRESSION: 1. Normal hepatobiliary scan. Reviewed, dictated and finalized at location A.
--- NOTE | ~2024-11-13 | CT_ITS ---
CT brain wo con Ordering provider: Lizet Molina MD History: 69 years Male with . AMS, somnolence . Comparison: November 21, 2022 Technique: CT of the head without contrast. Radiation reduction technique utilized.The dose-length pr oduct was 681 mGy-cm. FINDINGS: BRAIN PARENCHYMA AND CSF SPACES: Encephalomalacia is seen in the right SHEA and MCA distribution sugge stive of old infarct. Mild leukoaraiosis and diffuse cortical atrophy. Mild atheromatous disease. No midline shift, mass effect or hemorrhage. The brain parenchyma and CSF spaces are otherwise normal. VISUALIZED PARANASAL SINUSES: Bilateral ethmoid sinus disease. Otherwise, Well aerated. MASTOIDS: Well aerated. BONES: The bones appear intact. SOFT TISSUES: Visualized nasopharynx is normal. Superficial soft tissues are normal. IMPRESSION: No acute intracranial findings. 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 Reviewed, dictated and finalized at location A.
--- NOTE | ~2024-11-13 | CT_ITS ---
EXAMINATION: CT abdomen pelvis wo con DATE: 11/15/2024 08:46 INDICATION: Renal/ureteral calculi TECHNIQUE: Computed tomography (CT) of the abdomen and pelvis was performed without intravenous contr ast. Automated exposure control and iterative reconstruction technique were employed. The dose-length product was 1503.91 mGy-cm. COMPARISON: 11/14/2024 and 07/12/2024 FINDINGS: Very small right and trace left pleural effusions with dependent atelectasis in both lower lobes. Hea rt size is normal. Atherosclerotic coronary artery calcific location. Mild bilateral gynecomastia. A few scattered hepatic and splenic calcifications consistent with old granulomatous disease. Gallbladd er is dilated to 6.5 cm in maximal diameter but without evident gallbladder wall thickening or perich olecystic inflammatory stranding to more specifically suggest acute cholecystitis. Pancreas and bilat eral adrenal glands are normal. Mild to moderate bilateral renal atrophy with more focal cortical sca rring at the lower pole the right kidney suggesting sequela prior infection or infarction. Bilateral nephrolithiasis with stones measuring up to 1.5 cm in the right kidney and staghorn calculus extendin g from the right renal pelvis into a couple calyces of the upper right kidney. Interval advancement o f an obstructing 3-4 mm stone, obviously at the proximal left ureter now at the left ureterovesicular junction resulting in mild left hydroureteronephrosis. Gas and a Huddleston catheter within the bladder. Postoperative change of prior subtotal colectomy with ileocolic anastomosis in the anterior pelvis. T here is a transition point at the distal most ileum immediately proximal to the anastomosis or the kev wel undergoes and at least 360 degree twist there is mild dilation of the more proximal small bowel w hich measures up to 4.5 cm maximal diameter. This has not significantly progressed since the most rec ent prior study suggesting the obstruction is partial versus intermittent. No abscess or free intrape ritoneal gas. No pathologically enlarged abdominal or pelvic lymphadenopathy. Stable appearance of a thin rim of soft tissue density surrounding central fat attenuation in the anterior pelvis which whic h likely sequela of either chronic fat necrosis or epiploic appendagitis. Moderate thoracic and lumba r spondylosis with chronic T10 and T11 compression fractures with 20% anterior vertebral body height loss. lymphadenopathy. IMPRESSION: 1. Bilateral nephrolithiasis with interval advancement of a 3-4 mm at least partially obstructing sto ne now at the left ureterovesicular junction with mild left hydroureteronephrosis. 2. Likely intermittent/partial small bowel obstruction secondary to a volvulus with at least 360 degr ees twist of the distalmost small bowel immediately proximal to ileocolic anastomosis with no interva l change in mild dilation of a few loops of more proximal small bowel. 3. Prominent dilation of the gallbladder to 6.5 cm but without evident wall thickening or pericholecy stic infiltrate stranding to more specifically suggest acute cholecystitis. Correlate with the right upper quadrant ultrasound or HIDA scan. 4. Very small right and trace left pleural effusions and minimal perihepatic ascites. Reviewed, dictated and finalized at location A. IMPRESSION: 1. Bilateral nephrolithiasis with interval advancement of a 3-4 mm at least par tially obstructing stone now at the left ureterovesicular junction with mild le ft hydroureteronephrosis. 2. Likely intermittent/partial small bowel obstruction secondary to a volvulus with at least 360 degrees twist of the distalmost small bowel immediately proxi mal to ileocolic anastomosis with no interval change in mild dilation of a few loops of more proximal small bowel. 3. Prominent dilation of the gallbladder to 6.5 cm but without evident wall thi ckening or pericholecystic infiltrate stranding to more specifically suggest ac brittanie cholecystitis. Correlate with the right upper quadrant ultrasound or HIDA s can. 4. Very small right and trace left pleural effusions and minimal perihepatic as cites.
--- NOTE | ~2024-11-13 | US_ITS ---
EXAM: ABDOMEN ULTRASOUND HISTORY: Distended gallbladder COMPARISON: None. Reference is made to prior CT examination of the abdomen and pelvis performed most recently on 11/15/2024 and dating back to 07/12/2024 FINDINGS: LIVER: The liver is increased in echogenicity and unremarkable in size. The portal vein is patent, demonstrating hepatopedal flow. GALLBLADDER: The gallbladder is hydropic and fluid-filled. No gallbladder wall thickening or pericholecystic fluid. Dependent stones are suspected. No sonographic Alfredo sign was elicited by the processing technologist. BILE DUCTS: Common bile duct measures 3mm. PANCREAS: Limited evaluation of the pancreas secondary to overlying bowel gas IMPRESSION: Fatty infiltration of the liver. Hydropic, fluid-filled gallbladder with dependent stones suspected. Reviewed, dictated and finalized at location A.
--- NOTE | ~2024-11-13 | CT_ITS ---
CLINICAL INDICATION: Hypotension, diarrhea with a history of acute renal failure COMPARISON: Reference is made to a CT examination of the abdomen and pelvis dated 07/12/[address] e xamination of the chest dated 05/15/2024. TECHNIQUE: Multiple contiguous axial images of the chest, abdomen and pelvis were performed without t he administration of intravenous contrast The dose-length product (DLP) was 1830.39 mGy-cm. Automated exposure control and iterative reconstruction technique were employed. FINDINGS/OBSERVATIONS: LUNG: Bibasilar atelectasis. The lungs are otherwise clear. MEDIASTINUM: Limited evaluation without intravenous contrast. HEART:Calcified aortic valve.The heart is of normal size, without pericardial effusion. SOFT TISSUES OF THE CHEST: Unremarkable. Liver: The liver demonstrates homogeneous attenuation and is not enlarged . Gallbladder and biliary system: The gallbladder is markedly distended, with trace surrounding inflammatory change. Pancreas: Limited evaluation of the pancreas secondary to the lack of intravenous contrast. Spleen: Punctate calcifications identified within the splenic parenchyma, suggesting prior granulomat ous disease. The remainder of the spleen demonstrates otherwise homogeneous attenuation and is not enlarged. Kidneys: 13 mm bulky calcification within the left renal pelvis. Mild left-sided hydroureteronephrosis without an obstructing stone identified. Staghorn calculus within the upper pole and interpolar region of the right kidney without hydroureter onephrosis. Adrenal glands: Unremarkable. Gastrointestinal tract: Postoperative change within the colon. The colon demonstrates moderate air distention at the level of the supraumbilical abdomen, to the rig ht of midline, just before the anastomotic staple line. The distal colon and rectum are decompressed. Vasculature: Unremarkable. Lymph nodes: Limited evaluation without intravenous contrast. Pelvic structures: Asymmetric mural thickening along the base of the bladder for which direct visualization is recommend ed. The prostate gland is not enlarged. Body wall and musculoskeletal: Indeterminate oval-shaped focus of mixed echogenicity, slightly to the left of midline at the level o f the umbilicus, possibly representing prior mesh placement, unchanged from prior. Age-appropriate degenerative disease within the lower thoracic and lumbosacral spines. IMPRESSION: Bilateral renal calculi. Asymmetric mural thickening of the base of the bladder for which direct visualization is recommended. Findings which may represent partial distal bowel obstruction with significant air distention of the colon just before the anastomotic staple line and distal decompression. Significant gallbladder distention with trace surrounding inflammatory change. Bibasilar atelectasis. Reviewed, dictated and finalized at location A. IMPRESSION: Bilateral renal calculi. Asymmetric mural thickening of the base of the bladder for which direct visuali zation is recommended. Findings which may represent partial distal bowel obstruction with significant air distention of the colon just before the anastomotic staple line and distal decompression. Significant gallbladder distention with trace surrounding inflammatory change. Bibasilar atelectasis.
--- NOTE | 2024-11-13 13:35 | ECG_ITS ---
Test Date: 2024-11-13 14:24:05 Measurements Intervals [place] Rate: 43 P: 226 NM: 164 QRS: 4 QRSD: 97 T: 72 QT: 431 QTc: 367 Interpretive Statements SINUS BRADYCARDIA WITH MARKED SINUS ARRHYTHMIA LOW QRS VOLTAGE [QRS DEFLECTION < 0.5/1.0 mV IN LIMB/CHEST LEADS] Poor R wave progression Compared to ECG 07/12/2024 03:17:59 no changes Electronically Signed On 11-13-2024 22:12:43 CDT by Pascual Degroot M.D.
--- NOTE | 2024-11-13 13:38 | ED.WEAKNESS ---
HPI - Weakness General Chief complaint: Weakness Stated complaint: weakness Time Seen by Provider: 11/13/24 13:28 History of Present Illness HPI Narrative: Pt presents with worsening generalized weakness for a week. Pt has not been eating or drinking well and sugars have been dropping. Pt deniew fever or urinary symptoms or cough. Pt has some chronic right shoulder pain since his stroke. Related Data Home Medications ?Medication ?Instructions ?Recorded ?Confirmed ?Last Taken ?Type acetaminophen 325 mg tablet 650 mg PO Q8H PRN Pain, Mild 11/07/23 11/13/24 Unknown History albuterol sulfate 90 mcg/actuation 2 puff inhalation Q4H PRN Wheezing 11/07/23 11/13/24 Unknown History aerosol inhaler aspirin 81 mg tablet,delayed 81 mg PO DAILY 11/07/23 11/13/24 11/06/23 History release cabergoline 0.5 mg tablet 0.5 mg PO 2XW 11/07/23 11/13/24 11/05/23 History carboxymethylcellulose sodium 0.5 1 drp EACH EYE QID PRN Dry Eyes 11/07/23 11/13/24 Unknown History % eye drops in a dropperette (Refresh Plus) carvedilol 3.125 mg tablet 3.125 mg PO BID 11/07/23 11/13/24 11/06/23 History dextromethorphan-guaifenesin 10 10 ml PO Q4-6H PRN Cough 11/07/23 11/13/24 Unknown History mg-100 mg/5 mL oral syrup escitalopram oxalate 20 mg tablet 15 mg PO QAM 11/07/23 11/13/24 11/07/23 History gabapentin 100 mg capsule 100 mg PO TID 11/07/23 11/13/24 11/06/23 History glipizide 5 mg tablet 5 mg PO QAM 11/07/23 11/13/24 11/06/23 History loperamide 2 mg capsule 2 mg PO Q6H PRN Diarrhea 11/07/23 11/13/24 Unknown History (Anti-Diarrheal (loperamide)) melatonin 5 mg tablet 5 mg PO HS 11/07/23 11/13/24 11/06/23 History ondansetron 4 mg disintegrating 4 mg PO Q4H PRN Nausea And Vomiting 11/07/23 11/13/24 Unknown History tablet rosuvastatin 40 mg tablet 40 mg PO QHS 11/07/23 11/13/24 11/06/23 History sennosides 8.6 mg tablet (Senokot) 8.6 mg PO PRN PRN Constipation 11/07/23 11/13/24 Unknown History tamsulosin 0.4 mg capsule 0.4 mg PO QAM 11/07/23 11/13/24 11/06/23 History tiotropium bromide 2.5 2 puff inhalation QAM 11/07/23 11/13/24 11/06/23 History mcg/actuation mist for inhalation (Spiriva Respimat) benzonatate 100 mg capsule 100 mg PO TID PRN cough 05/16/24 11/13/24 Unknown History brinzolamide 1 %-brimonidine 0.2 % 1 drp EACH EYE TID 05/18/24 11/13/24 Unknown History eye drops,suspension (Simbrinza) budesonide 160 mcg-glycopyr 9 2 inh inhalation BID 05/18/24 11/13/24 Unknown History mcg-formot 4.8 mcg/actuation HFA inhaler (Breztri Aerosphere) oxycodone 5 mg tablet 5 mg PO QHS pain 05/18/24 11/13/24 Unknown History cholestyramine 4 gram oral powder 4 g PO TID 11/13/24 11/13/24 Unknown History lidocaine 5 % topical patch 1 patch topical DAILY back pain 11/13/24 11/13/24 Unknown History psyllium husk 0.4 gram capsule 0.4 g PO DAILY PRN constipation 11/13/24 11/13/24 Unknown History (Fiber (psyllium husk)) Allergies Allergy/AdvReac Type Severity Reaction Status Date / Time hydralazine AdvReac Vomiting Verified 11/13/24 14:12 lisinopril AdvReac Rash Verified 11/13/24 14:12 metformin AdvReac Diarrhea Verified 11/13/24 14:12 pioglitazone AdvReac Nausea Verified 11/13/24 14:12 simvastatin AdvReac Rash Verified 11/13/24 14:12 Review of Systems Review of Systems: All systems reviewed & are unremarkable except as noted in HPI and below PMFSH Past Medical History Medical History (Updated 11/13/24 @ 21:43 by Madison Larsen APRN) Coronary artery disease Benign prostatic hyperplasia Tobacco abuse Chronic obstructive pulmonary disease Obstructive sleep apnea Intolerant of CPAP Hypertension Type 2 diabetes mellitus Cerebrovascular accident Surgical History Surgical History History of coronary artery stent placement History of cardiac catheterization History of partial colectomy Family History Family History Other Family history non-contributory Social History Social History Social History: Surrogate medical decision maker: Clarita Hobbs, mother. Code status: Full code. Smoking packs per day: 1 Smoking cigarettes per day: 20.0 Years smoked: 50 Smoking pack-years: 50.00 Smoking status: Current every day smoker Tobacco type: cigarettes Alcohol intake: former Substance use: never Do You Feel Safe in your Home?: Yes Lack of Transportation: No Lack of Food: Never True Current Housing: I Have Housing Concerned About Future Housing: No Difficulty Paying Gas/Electric Bills: No Difficulty Paying for Meds: No Currently Unemployed: No Education: High School Diploma/GED Difficulty w/ Childcare or Family Care: No Additional living arrangements comments: Resident at [facility]. 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 Spiritual care concerns: No Exam Const: General: healthy appearing and no acute distress Nutritional Appearance: well nourished Orientation/consciousness: patient oriented x3 Limitations: no limitations HENMT: Mouth: Yes dry mucous membranes Eyes: EOM: EOMs intact bilaterally Resp: Effort & Inspection: normal respiratory effort Auscultation: clear to auscultation bilaterally Cardio: Rate: bradycardic Rhythm: regular rhythm GI: GI Palp: Yes Soft to palpation and No Tenderness to palpation present (GI) Auscultation: normal bowel sounds Skin: General skin exam: normal color Rashes: no rashes Wounds: no wounds Neuro: General: patient oriented x3, moves all extremities, no meningeal signs and no focal motor deficits (deficit on left from prior cva) Speech: normal speech Extrem: General: no clubbing, cyanosis or edema Psych: Mental Status: mental status grossly normal Affect: normal affect Attitude: cooperative Course Vital Signs Vital signs: Vital Signs Pulse Rate 49 L 11/13/24 13:31 Respiratory Rate 12 11/13/24 13:31 Blood Pressure 107/40 L 11/13/24 13:31 Pulse Oximetry 94 11/13/24 13:31 Temperature 98.4 F 11/13/24 19:45 Pulse Rate 55 L 11/13/24 19:45 Respiratory Rate 20 11/13/24 19:45 Blood Pressure 111/43 L 11/13/24 19:45 Pulse Oximetry 97 11/13/24 19:45 Oxygen Delivery Nasal Cannula 11/13/24 13:44 Oxygen Flow Rate 4 11/13/24 13:44 MDM - Weakness MDM Narrative Medical decision making narrative: Pt presents with worsening general weakness for a week. will check ekg and do labs with septic work up and UA and cxr. cxr unremarkable. Pt has luis on labs and appears dry. BP low. will give 1 L ivf and recheck. SBP improved with bolus. discussed with Madison Celis and agrees to admit would like another liter of fluids. Differential Diagnosis Differential diagnosis: Likely acute myocardial infarction, anemia, hypoglycemia, hypothyroidism, rhabdomyolysis, sepsis, dehydration and other (uti pneumonia among others) Lab Data 11/13/24 14:21 11/13/24 14:21 Labs: Lab Results 11/13/24 11/13/24 11/13/24 Range/Units 13:33 14:21 14:56 WBC 10.4 H (4.5-10.0) K/mm3 RBC 4.34 L (4.6-6.20) M/mm3 Hgb 12.3 L (14.0-18.0) g/dL Hct 38.5 L (42.0-52.0) % MCV 88.7 (80-100) fl MCH 28.3 (26-34) pg MCHC 31.9 L (32-36) g/dl RDW 15.7 H (11.5-14.5) % Plt Count 219 (150-375) k/mm3 MPV 8.9 (7.4-10.4) fl Immature Gran % (Auto) 0.9 H (0-0.5) % Neut % (Auto) 75.8 H (45.5-73.1) % Lymph % (Auto) 13.4 L (18.3-44.2) % [place] % (Auto) 6.6 (2.6-8.5) % Eos % (Auto) 2.9 (0-4.4) % Baso % (Auto) 0.4 (0.2-1.2) % Lymph # (Auto) 1.40 (0.9-3.2) K/mm3 [place] # (Auto) 0.7 H (0.1-0.6) K/mm3 Eos # (Auto) 0.3 (0-0.3) K/mm3 Baso # (Auto) 0.0 (0.0-0.1) K/mm3 Abs Immat Gran (auto) 0.09 H (0.00-0.031) K/mm3 Absolute Neuts (auto) 7.9 H (1.3-6.7) K/mm3 Absolute Nucleated RBC 0.000 (0.0-0.012) K/mm3 Nucleated RBC % 0.0 (0.0-0.2) % PT 14.2 (11.1-14.7) Seconds INR 1.1 APTT 34.0 (22.3-36.8) Seconds Sodium 140 (137-145) mmol/L Potassium 4.4 (3.4-5.0) mmol/L Chloride 108 H (98-107) mmol/L Carbon Dioxide 18 L (22-30) mmol/L Anion Gap 14 H (4-12) mmol/L BUN 61 H D (9-20) mg/dL Creatinine 5.43 H (0.7-1.3) mg/dL Estim Creat Clear Calc 15 ml/min Estimated GFR 11 L (59 - ) Glucose 90 (65-110) mg/dL POC Capillary Glucose 80 87 (65-105) mg/dl Lactic Acid 0.8 (0.7-2.0) mmol/L Calcium 9.6 (8.4-10.2) mg/dL Total Bilirubin 0.3 (0.2-1.3) mg/dL AST 38 (17-59) U/L ALT 28 (6-50) U/L Alkaline Phosphatase 144 H (38-126) U/L C-Reactive Protein 2.8 H (<1.0) mg/dL Total Protein 7.9 (6.3-8.2) g/dL Albumin 4.1 (3.5-5.1) g/dL Procalcitonin 1.3 ng/mL Critical Care Time Critical Care Time Critical Care Time: Yes Total Critical Care Time: 40 Discharge Plan Discharge Clinical Impression: Acute renal insufficiency, Acute dehydration, Weakness Patient Disposition: Still a Patient Condition: Improved
--- NOTE | 2024-11-13 14:12 | PC.NURSE ---
vascular access at bedside attempting US IV access at this time.
[2024-11-13] MEDS: LIDOCAINE 2% GEL UROJET 10 ML PKG (14:27)
[2024-11-13 14:31] LABS: Hematocrit 38.5 % (42.0-52.0); Hemoglobin 12.3 g/dL (14.0-18.0); Immature Granulocyte Percent A 0.9 % (0-0.5); Lymphocytes Absolute Auto 1.40 K/mm3 (0.9-3.2); Mean Corpuscular HGB Conc 31.9 g/dl (32-36); Mean Corpuscular Hemoglobin 28.3 pg (26-34); Mean Corpuscular Volume 88.7 fl (80-100); Nucleated Red Blood Cells Absolute Auto 0.000 K/mm3 (0.0-0.012); Nucleated Red Blood Cells Perc 0.0 % (0.0-0.2); Platelet Count Result 219 k/mm3 (150-375); Red Blood Count 4.34 M/mm3 (4.6-6.20); White Blood Count 10.4 K/mm3 (4.5-10.0)
--- OUTSIDE RECORDS SUMMARY | 2024-11-13 14:38 | XMS_ITS | Encounter Summary ---
Author Organization [facility] Health Address [address] [address] Care Team Providers Care Apparel Fashion Designer Name Role Phone Ly Valenzuela MD Primary Care Provider [phone] Encounter Details Date Type Department Care Team (Latest Contact Info) Description 10/28/2022 11:43 AM CDT Hospital Encounter [address] [place] [address] Carolina Garibay MD [address] [place] [address] [facility] Social History Tobacco Use Types [...] Date Recorded PHQ2 TOTAL SCORE 0 12/13/2021 [facility] [place] of Occupat ional Health - Occupational Stress [...] place to sleep or slept in a skilled nursing (including now)? 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 Answer Date of Assessment Author No 10/16/2022 4:01 AM Jean Taylor, AGGIE * Is person blind or have serious difficulty seeing? Answer Date of Assessment Author No 10/16/2022 4:01 AM Jean Taylor RN * Does person have serious difficulty walking/climbing stairs? Answer Date of Assessment Author No 10/16/2022 4:01 AM Jean Taylor, AGGIE * Does person have difficulty dressing/bathing? Answer Date of Assessment Author No 10/16/2022 4:01 AM Jean Taylor RN * Does person have difficulty doing errands alone? Answer Date of Assessment Author No 10/16/2022 4:01 AM Jean Taylor RN documented as of this encounter Mental Status * Does person have difficulty concentrating/remembering/making decisions? Answer Entry Date Author No 10/16/2022 4:01 AM Jean Taylor RN documented in this encounter Plan of Treatment Not on file documented as of this encounter Visit Diagnoses Not on filedocumented in this encounter Care Teams Apparel Fashion Designer Relationship Specialty Start Date End Date Ly Valenzuela MD [address] [place] [address] PCP - General 03/06/22 documented as of this encounter
--- OUTSIDE RECORDS SUMMARY | 2024-11-13 14:38 | XMS_ITS | Clinical Summary ---
Author Organization [facility] Address [address] [place] [address] Care Team Providers Care Numerical Control Programmer Name Role Phone Unavailable Primary Care Provider [...] as needed for dry eyes. Active Tiotropium [place] Monohydrate (Spiriva Respimat) 2.5 MCG/ACT aerosol solution Inhale 2 puffs (5 mcg total) RT Daily. Active ergocalciferol (vitamin D2, Ergocalciferol,) 1.25 MG (95774 UT) capsule Take 1 capsule (50,000 Units [...] 2:37 AM CDT Height 180.3 cm (5' 11) 11/15/2022 2:37 AM CDT Body Mass Index 31.94 11/15/2022 2:37 AM CDT Plan of Treatment Health Maintenance Due Date Last Done Comments CT Colonography 1956 Colonoscopy 1955 Colorectal Cancer Screening 1956 FIT-DNA (Cologuard) 1956 FIT 1956 FOBT 1956 Sigmoidoscopy 1956 Annual Visit Topic 1957 Hepatitis C Screening 1974 Pneumococcal Vaccine: 65+ Ye ars (1 of 4 - PCV) 07/14/1975 PSA Test 07/14/2011 DTaP/Tdap/Td Vaccines (2 - T d or Tdap) 07/23/2024 07/23/2014 HIB Vaccines Aged Out No longer [...]
--- OUTSIDE RECORDS SUMMARY | 2024-11-13 14:38 | XMS_ITS | Clinical Summary ---
Author Organization [facility] Address [address] [place] [address] Care Team Providers Care Cable Placer Name Role Phone None, Provider MD Primary [...] 3:21 AM CDT Height 180.3 cm (5' 11) 10/12/2022 3:21 AM CDT Body Mass Index 31.66 10/12/2022 3:21 AM CDT Plan of Treatment Health Maintenance Due Date Last Done Comments Colorectal Cancer Screening Colonoscopy (10 Years) 1956 Hepatitis C 1974 Pneumococcal Vaccine: 50+ Years (2 of 2 - PCV) 08/16/2004 08/17/2003 Zoster Vaccines (1 of 2) 2006 Annual Medicare Wellness Visit 2021 COVID-19 Vaccine (2023-2 5 season) 2024 DTaP, Tdap and Td Vaccines ( 2 [...] patient's age to complete this topic Insurance [facility] MEDICARE Care Teams Cable Placer Relationship Specialty Start Date End Date None, Provider, PCP - General 10/10/21
--- OUTSIDE RECORDS SUMMARY | 2024-11-13 14:38 | XMS_ITS | Clinical Summary ---
Author Organization [facility] Address [address] [address] Care Team Providers Care Heat Plant Specialist Name Role Phone Ly Valenzuela MD Primary Care Provider [phone] Source Comments [facility],non-owned Affiliates and Associated Physician Practices is amultiple site organization consisting of ambulatory clinics and hospital sitesin [place], [place], [place] and [place]. This disclosure is being madepursuant to the Care Everywhere program and may not contain all information available regarding this patient. Last updated 18.[facility] Allergies Active Allergy Reactions Criticality Noted Date Comments Hydralazine Nausea and/or Vomiting 02/11/2018 Lisinopril Other 08/27/2020 Metformin Diarrhea 09/02/2006 Pioglitazone Nausea and/or Vomiting Medium 01/27/2012 Simvastatin Other 01/19/2022 Pt reports hot flashes Medications * Be aware that medications may not be up to date on this document. Alwaysverify current medications with the patient. aspirin EC (Ecotrin) 81 MG tablet Take 1 (one) tablet by mouth once daily Active brinzolamide-brim onidine (Simbrinza) 1-0.2 % ophthalmic suspension Instill 1 (one) drop into both eyes 3 times daily Active cabergoline (Dostinex) 0.5 MG tablet Take 1 (one) tablet by mouth Two times a week Active carboxymethylcell ulose 1 % ophthalmic gel Instill into both eyes 4 times daily as needed (Dry eyes) Active vitamin D, ergocalciferol, (Drisdol) 1.25 MG (89263 UT) capsule Take 1 (one) capsule by [...] 4 Grams (4000 mg) / 24 hours. 10/29/19 Active albuterol-ipratro pium (Duo-Neb) 0.5-2.5 (3) MG/3ML nebulizer solution Inhale 3 mL by mouth every 4 hours as needed for Shortness of Breath or Wheezing 10/29/19 Active budesonide-formot duane (Symbicort) 160-4.5 MCG/ACT inhaler Inhale 2 (two) puffs by mouth 2 times daily 10/29/19 Active calcium carbonate (Tums) 500 MG chew tablet Take 2 (two) tablets by mouth every 2 hours as needed for Heartburn 10/29/19 Active heparin 5000 UNIT/ML injection Inject 1 mL subcutaneously every 8 hours 10/29/19 Active gabapentin (Neurontin) 100 MG capsule Take 2 (two) capsules by mouth 3 times daily 10/29/19 Active insulin glargine (Lantus/Semglee) 100 units/mL pen Inject 10 (ten) Units subcutaneously every 24 hours 10/30/19 Active insulin lispro (HumaLOG;ADMelog) 100 UNIT/ML pen Inject 0 (zero) Units to 12 (twelve) Units subcutaneously 3 times daily with meals 10/29/19 Active bismuth subsalicylate (Pepto-Bismol) 262 MG chew tablet Take 2 (two) tablets by mouth as needed 10/29/19 Active losartan (Cozaar) 50 MG tablet Take 1 (one) tablet by mouth once daily 10/30/19 Active amLODIPine (Norvasc) 10 MG tablet Take 1 (one) tablet by mouth once daily 10/30/19 Active melatonin 1 MG tablet Take 8 (eight) tablets by mouth once daily 10/29/19 Active tamsulosin (Flomax) 0.4 MG capsule Take 1 (one) capsule by mouth once daily At the same time every day after a meal. 10/30/19 Active simethicone (Mylicon) 80 MG chew tablet Take 1 (one) tablet by mouth 4 times daily as needed for Gas Pain 10/29/19 Active clopidogrel (plaVIX) 75 MG tablet Take 1 (one) tablet by mouth once daily for 81 days 81 tablet 10/30/19 Active nicotine (Nicoderm CQ) 21 MG/24HR patchIndications: Left-sided weakness,Ischemic stroke (HCC),Dysphagia, unspecified type,Bradycardia, Carotid occlusion, right,Coronary artery disease involving huslia coronary artery of huslia heart without angina pectoris,JAMES (obstructive sleep apnea),Chronic obstructive pulmonary disease, unspecified COPD type ([facility]),Type 2 diabetes mellitus with stage 2 chronic kidney disease, with long-term current use of insulin ([facility]),Smoker,Carrillo tid stenosis, left Apply 1 (one) patch to skin once daily 10/30/19 Active lidocaine (Lidoderm) 5 % patch Apply 1 (one) patch to skin every 24 hours Apply patch to most painful area and remove after 12 hours. May reapply a new patch 12 hours later. 10/29/19 Active glucose, Diabetic Use, (Dex4 Glucose) oral liquid Take by mouth as needed for Other (Bedside Glucose less than 70 mg/dL -If able to eat and does not have swallowing difficulties) 10/29/19 Active glucose, Diabetic Use, 15 GM/32ML oral gel Take by mouth as needed for Other (Bedside Glucose less than 70 mg/dL -If able to eat and does not have swallowing difficulties) 10/29/19 Active Dextrose, Diabetic Use, (glucose) 4 G chew tablet Take 4 (four) tablets by mouth as needed 10/29/19 Active carvedilol (Coreg) 6.25 MG tablet Take 1 (one) tablet by mouth 2 times daily with morning and evening meal Hold for Heart rate < 60/min 10/29/19 Active Active Problems Problem Noted Date Diagnosed [...] 10/13/2022 10/28/2022 Respiratory acidosis 10/13/2022 023 Immunizations Immunization Administration Dates Next Due INFLUENZA VACCINE 05/10/2006 [...] Date Recorded PHQ2 TOTAL SCORE 0 12/13/2021 [facility] Occupat ional Health - Occupational Stress [...] on file 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 Gender Identity Not on file Sexual Orientation [...] 4:00 AM CDT Height 180.3 cm (5' 11) 10/20/2022 7:14 PM CDT Body Mass Index [...] 11/18/2022, Additional history exists COVID-19 VACCINE ( season) 2024 DEPRESSION SCREENING 05/10/2024 12/11/2021 DIABETES - URINE PROTEIN SCREENING 05/10/2024 11/18/2022 MEDICARE AWV CALENDAR YEAR 2024 DTAP/TDAP/TD VACCINES (3 - Td or Tdap) 07/23/2024 07/23/2014, 12/09/2003 DIABETES RETINOPATHY SCREENING 08/12/2024 08/12/2022, 05/13/2022, 01/14/2022 INFLUENZA VACCINE (Season Ended) 2025 05/10/2006 HEPATITIS B VACCINE Aged Out No longe r eligible based on patient's age to complete this topic HIB VACCINE Aged Out No longer eligi ble based on patient's age to complete this topic HPV VACCINE Aged Out No longer eligi ble based on patient's age to complete this topic MENINGOCOCCAL (Group B) VACCINE SHARED DECISION-MAKING Aged Out No longer eligible based on patient's age to complete this topic MENINGOCOCCAL GROUPS A/C/Y/W VACCINE Aged Out No longer eligible based on patient's age to complete this topic Medical Devices Implanted Type Area Arcgis Developer Device Identifier Shelf Expiration Date Model / Serial / Lot Loop Recorder Loop Recorder [employer] [id number] / [id number] / Procedures Procedure Name Priority Date/Time Associated [...] - 105 mg/dL 11/19/2022 4:32 AM CDT [facility] Sodium 140 136 - 145 mmol/L 11/19/2022 4:32 AM CDT [facility] Potassium 4.8 3.5 - 5.1 mmol/L 11/19/2022 4:32 AM CDT [facility] Chloride 105 98 - 107 mmol/L 11/19/2022 4:32 AM CDT [facility] CO2 26 22 - 29 mmol/L 11/19/2022 4:32 AM CDT [facility] Calcium 9.9 8.4 - 10.4 mg/dL 11/19/2022 4:32 AM CDT [facility] Anion Gap 9 6 - 16 mmol/L 11/19/2022 4:32 AM CDT [facility] BUN 56(H) 7 - 26 mg/dL 11/19/2022 4:32 AM CDT [facility] Creatinine 1.40(H) 0.72 - 1.25 mg/dL 11/19/2022 4:32 AM CDT [facility] eGFR by CKD-EPI 55(L) >=90 mL/min/1.7 3 m2 11/19/2022 4:32 AM CDT [facility] Blood BLOOD SPECIMEN / Unknown Lab Venipuncture / Unknown 11/19/2022 12:08 AM CDT 11/19/2022 3:50 AM CDT us Zay Perry MD LAB - CHEMISTRY ORDERABLES Final Result [facility] [address] [place], [place] [id number] * (ABNORMAL) MICROALB/CREAT RATIO URINE RANDOM PANEL (11/18/2022 2:14 PM CDT) Creatinine Urine 35.49 mg/dL 11/19/19 4:29 PM CDT [facility] Microalbumin Urine 1.9 mg/dL 11/18/2022 4:29 PM CDT [facility] Microalbumin/Crea tinine Ratio 53(H) <30 mg/g 11/18/2022 4:29 PM CDT [facility] Urine URINE SPECIMEN OBTAINED BY CLEAN CATCH PROCEDURE / Unknown Collection / Unknown 11/18/2022 2:14 PM CDT 11/18/2022 3:45 PM CDT Sacha Ruby DO LAB - URINE CHEMISTRY ORDE JD Final Result [facility] [address] [place] [address] * (ABNORMAL) HEMOGLOBIN A1C (10/12/2022 10:31 PM CDT) Hemoglobin A1c 7.7(H) <=5.6 % 10/13/2022 8:30 AM T [facility] Estimated Average Glucose 174 mg/dL 10/13/2022 8:30 AM [facility] Comment: HbA1c Interpretation: Normal : < 5.7% Pre-diabetes: 5.7-6.4% Diabetes: Equal to or greater than 6.5% Test results diagnostic of diabetes should be repeated for confirmation. Treatment target values recommended by ADA and other clinical organizations should be used to evaluate metabolic control in patients. Reference: [place] Diabetes Association, Standards of Care in Diabetes -2020 In patients 70 years and older consider HbA1c target range of 7.0-7.5% (Reference: Israel Marcos et al. JAMDA. 2012) The Sebia assay for the measurement of HbA1c is a National Glycohemoglobin Standardization Program (NGSP) certified method. Blood BLOOD SPECIMEN / Unknown Venipuncture / Unknown 10/12/2022 10:31 PM CDT 10/12/2022 10:36 PM CDT us Bertha Randolph MD LAB - CHEMISTRY ORDERABLES Fin al Result [facility] [address] [place] [address], [facility] [phone] from Last 3 Months or Most Recently Relevant to Health Maintenance Insurance [facility] Agency-Miscellaneous Address: [facility] [id number] [place] [phone] [employer] MEDICARE ADV HMO & PPO Advance Directives * Full Code (Latest Code Status on File) Date Activated Date Inactivated Comments 10/28/2022 10:18 PM 11/20/2022 8:18 PM * Full Code Date Activated Date Inactivated Comments 10/12/2022 7:38 PM 10/28/2022 9:39 PM * Full Code Date Activated Date Inactivated Comments 12/11/2021 12:36 PM 12/14/2021 5:07 PM Care Teams Heat Plant Specialist Relationship Specialty Start Date End Date Ly Valenzuela MD [address] [place] [address] PCP - General 03/06/22
[2024-11-13 14:41] LABS: Alanine Aminotransferase 28 U/L (6-50); Albumin Level 4.1 g/dL (3.5-5.1); Alkaline Phosphatase 144 U/L (38-126); Anion Gap 14 mmol/L (4-12); Aspartate Amino Transferase 38 U/L (17-59); Bilirubin,Total 0.3 mg/dL (0.2-1.3); Blood Urea Nitrogen 61 mg/dL (9-20); Calcium 9.6 mg/dL (8.4-10.2); Carbon Dioxide 18 mmol/L (22-30); Chloride 108 mmol/L (98-107); Estimated CRCL calculation 15 ml/min; Estimated Glomerular Filt Rate 11; Glucose 90 mg/dL (65-110); Potassium 4.4 mmol/L (3.4-5.0); Sodium 140 mmol/L (137-145); Total Protein 7.9 g/dL (6.3-8.2)
[2024-11-13 14:43] LABS: INR 1.1; Prothrombin Time 14.2 Seconds (11.1-14.7)
[2024-11-13 14:44] LABS: Partial Thromboplastin Time 34.0 Seconds (22.3-36.8)
[2024-11-13 15:02] LABS: Procalcitonin 1.3 ng/mL
[2024-11-13 15:09] LABS: CRP 2.8 mg/dL (<1.0)
[2024-11-13] MEDS: SODIUM CHLORIDE 0.9% IV 1,000 ML 999 ML IV CONT ×2 (15:26→18:23)
[2024-11-13] MEDS: cefTRIAXone 2 GM in SODIUM CHLORIDE 0.9% IV 100 ML 200 ML IVPB (15:27)
--- NOTE | 2024-11-13 16:52 | PC.NURSE ---
ERP aware of improved pressures. ERP Dr farmer instructed to hold the rest of the fluids after a 1L of fluids.
[2024-11-13] MEDS: SODIUM CHLORIDE 0.9% IV 1,000 ML 125 ML IV CONT (18:20)
[2024-11-13] MEDS: oxyCODONE HCL (*CRX) 5 MG TAB IR PO (18:22)
--- NOTE | 2024-11-13 18:46 | P.HP_ITS ---
H&P: HPI History of Present Illness Date/Time: 11/13/24 18:46 Chief Complaint: Weakness Narrative: 69 y/o M with PMH of CVA, CAD, BPH, COPD, JAMES intolerant of CPAP, DM, and HTN presents here with generalized weakness. The patient presents here [facility] on 11/13 for further evaluation of generalized weakness. The patient reports he has had generalized weakness for the past week. It is accompanied by poor appetite and poor PO intake. NM reported the patient has been having hypoglycemic events, occurred most recently yesterday. Patient is unsure how low his glucose levels were and has poor memory of events yesterday. He denies accompanying abdominal pain, chest pain, shortness of breath, dysuria, difficulty urinating, fever, and chills. He does endorse a mild headache and pain in his right shoulder that has been chronic since his CVA. Initial VS at presentation: 97.4? F, HR 49, R 12, 107/40, and 94% on 4L NC. ED workup showed: WBC 10.4, hemoglobin 12.3 (at baseline), normal coags, creatinine 5.43 and GFR 11 (1.13 and GFR >60 on 07/12/2024), glucose 90, lactic 0.8, CRP 2.8. CXR showed no focal consolidation, mild perihilar bronchial wall thickening a finding suggestive of respiratory bronchiolitis. Review of Systems Review of Systems: All systems reviewed & are unremarkable except as noted in HPI and below PMFSH Past Medical History Medical History (Updated 11/13/24 @ 21:43 by Madison Larsen APRN) Coronary artery disease Benign prostatic hyperplasia Tobacco abuse Chronic obstructive pulmonary disease Obstructive sleep apnea Intolerant of CPAP Hypertension Type 2 diabetes mellitus Cerebrovascular accident Surgical History Surgical History History of coronary artery stent placement History of cardiac catheterization History of partial colectomy Family History Family History Other Family history non-contributory Social History Social History Social History: Surrogate medical decision maker: Clarita Hobbs, mother. Code status: Full code. Smoking packs per day: 1 Smoking cigarettes per day: 20.0 Years smoked: 50 Smoking pack-years: 50.00 Smoking status: Current every day smoker Tobacco type: cigarettes Alcohol intake: former Substance use: never Do You Feel Safe in your Home?: Yes Lack of Transportation: No Lack of Food: Never True Current Housing: I Have Housing Concerned About Future Housing: No Difficulty Paying Gas/Electric Bills: No Difficulty Paying for Meds: No Currently Unemployed: No Education: High School Diploma/GED Difficulty w/ Childcare or Family Care: No Additional living arrangements comments: Resident at [facility]. 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 Spiritual care concerns: No Meds Home Medications and Allergies Home Medications ?Medication ?Instructions ?Recorded ?Confirmed ?Type acetaminophen 325 mg tablet 650 mg PO Q8H PRN Pain, Mild 11/07/23 05/16/24 History albuterol sulfate 90 mcg/actuation 2 puff inhalation Q4H PRN Wheezing 11/07/23 05/16/24 History aerosol inhaler aspirin 81 mg tablet,delayed 81 mg PO DAILY 11/07/23 05/16/24 History release cabergoline 0.5 mg tablet 0.5 mg PO 2XW 11/07/23 05/16/24 History carboxymethylcellulose sodium 0.5 1 drp EACH EYE QID PRN Dry Eyes 11/07/23 05/16/24 History % eye drops in a dropperette (Refresh Plus) carvedilol 3.125 mg tablet 3.125 mg PO BID 11/07/23 05/16/24 History dextromethorphan-guaifenesin 10 10 ml PO Q4-6H PRN Cough 11/07/23 05/16/24 History mg-100 mg/5 mL oral syrup escitalopram oxalate 20 mg tablet 20 mg PO QAM 11/07/23 05/16/24 History gabapentin 100 mg capsule 100 mg PO TID 11/07/23 05/18/24 History glipizide 5 mg tablet 5 mg PO QAM 11/07/23 05/16/24 History loperamide 2 mg capsule 2 mg PO Q6H PRN Diarrhea 11/07/23 05/16/24 History (Anti-Diarrheal (loperamide)) melatonin 5 mg tablet 5 mg PO HS 11/07/23 05/16/24 History ondansetron 4 mg disintegrating 4 mg PO Q4H PRN Nausea And Vomiting 11/07/23 05/16/24 History tablet rosuvastatin 40 mg tablet 40 mg PO QHS 11/07/23 05/16/24 History sennosides 8.6 mg tablet (Senokot) 8.6 mg PO PRN PRN Constipation 11/07/23 05/16/24 History tamsulosin 0.4 mg capsule 0.4 mg PO QAM 11/07/23 05/16/24 History tiotropium bromide 2.5 2 puff inhalation QAM 11/07/23 05/16/24 History mcg/actuation mist for inhalation (Spiriva Respimat) benzonatate 100 mg capsule 100 mg PO TID PRN cough 05/16/24 05/16/24 History brinzolamide 1 %-brimonidine 0.2 % 1 drp EACH EYE TID 05/18/24 05/18/24 History eye drops,suspension (Simbrinza) budesonide 160 mcg-glycopyr 9 2 inh inhalation BID 05/18/24 05/18/24 History mcg-formot 4.8 mcg/actuation HFA inhaler (Breztri Aerosphere) oxycodone 5 mg tablet 5 mg PO Q8H PRN pain 05/18/24 05/18/24 History insulin aspart U-100 100 unit/mL 1 sliding scale dose subcut 05/20/24 Rx (3 mL) subcutaneous pen (Novolog USEASDIRECTD #15 mL FlexPen U-100 Insulin aspart) insulin glargine 100 unit/mL 15 unit (0.15 mL) subcut HS 15 05/20/24 Rx subcutaneous solution (Lantus days #2.25 mL U-100 Insulin) cholestyramine 4 gram oral powder 4 g PO TID 11/13/24 11/13/24 History lidocaine 5 % topical patch 1 patch topical DAILY back pain 11/13/24 11/13/24 History psyllium husk 0.4 gram capsule 0.4 g PO DAILY PRN constipation 11/13/24 11/13/24 History (Fiber (psyllium husk)) Allergies Allergy/AdvReac Type Severity Reaction Status Date / Time hydralazine AdvReac Vomiting Verified 11/13/24 14:12 lisinopril AdvReac Rash Verified 11/13/24 14:12 metformin AdvReac Diarrhea Verified 11/13/24 14:12 pioglitazone AdvReac Nausea Verified 11/13/24 14:12 simvastatin AdvReac Rash Verified 11/13/24 14:12 Vital Signs Vital Signs - 24 hr 11/13/24 13:31 11/13/24 13:36 11/13/24 13:43 Temperature 97.4 F L Pulse Rate 49 L 53 L 51 L Respiratory Rate 12 18 Blood Pressure 107/40 L Pulse Oximetry 94 100 Oxygen Delivery Nasal Cannula Oxygen Flow Rate 4 11/13/24 13:44 11/13/24 14:06 11/13/24 14:09 Temperature Pulse Rate 52 L 49 L Respiratory Rate 16 20 Blood Pressure 108/49 L Pulse Oximetry 94 95 Oxygen Delivery Nasal Cannula Oxygen Flow Rate 4 11/13/24 14:30 11/13/24 14:31 11/13/24 14:32 Temperature Pulse Rate 47 L Respiratory Rate 13 13 19 Blood Pressure 95/56 L Pulse Oximetry 99 99 95 Oxygen Delivery Oxygen Flow Rate 11/13/24 14:46 11/13/24 14:53 11/13/24 14:59 Temperature Pulse Rate 48 L Respiratory Rate 15 18 12 Blood Pressure 86/53 L 84/47 L 77/53 L Pulse Oximetry Oxygen Delivery Oxygen Flow Rate 11/13/24 15:01 11/13/24 15:18 11/13/24 15:30 Temperature Pulse Rate 45 L 50 L Respiratory Rate 22 H 16 17 Blood Pressure 79/42 L 93/69 L Pulse Oximetry 88 L 94 Oxygen Delivery Oxygen Flow Rate 11/13/24 15:45 11/13/24 16:13 11/13/24 16:18 Temperature Pulse Rate 51 L 52 L 51 L Respiratory Rate 14 14 14 Blood Pressure Pulse Oximetry 95 96 97 Oxygen Delivery Oxygen Flow Rate 11/13/24 17:06 11/13/24 17:11 11/13/24 17:16 Temperature Pulse Rate 52 L 50 L 50 L Respiratory Rate 20 18 23 H Blood Pressure 93/67 L 89/79 L Pulse Oximetry 99 94 96 Oxygen Delivery Oxygen Flow Rate 11/13/24 17:31 11/13/24 18:01 11/13/24 18:02 Temperature Pulse Rate 48 L 52 L 53 L Respiratory Rate 15 15 14 Blood Pressure 129/59 L 121/70 Pulse Oximetry 96 94 95 Oxygen Delivery Oxygen Flow Rate 11/13/24 18:15 Temperature Pulse Rate 49 L Respiratory Rate 11 L Blood Pressure Pulse Oximetry 96 Oxygen Delivery Oxygen Flow Rate Exam Const: General: comfortable and no acute distress Other: , male, chronically ill-appearing HENMT: Face/Nose/Sinus: Normal nares present Mouth: Yes dry mucous membranes Eyes: General: appearance normal, both eyes and all related structures Sclera: sclerae normal Pupils: Equal, round and reactive pupils present EOM: EOMs intact bilaterally Resp: Effort & Inspection: normal respiratory effort Auscultation: clear to auscultation bilaterally Cardio: Rate: regular rate Rhythm: regular rhythm Other: S1-S2 present without murmur, rub, ectopy GI: Other: Abdomen soft, nondistended, nontender. quiet but normoactive bowel sounds in all quadrants. Skin: General skin exam: normal color Other: skin tear to the left upper extremity, Steri-Stripped. No active bleeding. Various areas of ecchymosis to bilateral upper extremities, no particular pattern. In various stages of healing. Neuro: Speech: normal speech Motor exam (neuro): 5/5 motor strength present throughout Sensory Exam: normal sensation Other: A&O x3 Extrem: General: normal to inspection Psych: Mental Status: mental status grossly normal Affect: normal affect Other: fair insight and judgment. H&P: Results Labs Labs: Short CBC 11/13/24 Range/Units 14:21 WBC 10.4 H (4.5-10.0) K/mm3 Hgb 12.3 L (14.0-18.0) g/dL Hct 38.5 L (42.0-52.0) % Plt Count 219 (150-375) k/mm3 BMP 11/13/24 14:21 Sodium 140 Potassium 4.4 Chloride 108 H Carbon Dioxide 18 L BUN 61 H D Creatinine 5.43 H Glucose 90 Calcium 9.6 Liver Function 11/13/24 Range/Units 14:21 Total Bilirubin 0.3 (0.2-1.3) mg/dL AST 38 (17-59) U/L ALT 28 (6-50) U/L Alkaline Phosphatase 144 H (38-126) U/L Albumin 4.1 (3.5-5.1) g/dL Assessment and Plan Assessment and plan (1) Acute renal failure: Qualifiers: Acute renal failure type: unspecified Qualified Code(s): N17.9 - Acute kidney failure, unspecified Code(s): N17.9 - Acute kidney failure, unspecified Status: Acute Assessment and Plan: - creatinine 5.43, BUN 61, GFR 11 - baseline: 1.1-1.3 - renal ultrasound - check CK, urine sodium, protein/creatinine, urine creatinine, urine potassium - check UA - bladder scan for postvoid residual - monitor I&Os - nephrology consultation, awaiting recs (2) Hypotension: Qualifiers: Hypotension type: hypotension due to hypovolemia Qualified Code(s): E86.1 - Hypovolemia Code(s): I95.9 - Hypotension, unspecified Status: Resolved Assessment and Plan: - arrived 107/40, shortly thereafter became hypotensive with a systolic in the 70s and 80s. Resolved with 1 L bolus. Given additional bolus, now 111/43. Patient reports he has had poor p.o. intake for the past week. States he has also been having hypoglycemic events at his halfway, most recently yesterday on 11/12. Will continue IV fluids at this time, suspect hypovolemia given dry mucosa, acute renal failure, and resolution of hypotension with IV fluids. no signs of infection on CXR. Awaiting UA. 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 intake, unclear onset. Has been having hypoglycemic events at his facility. - hypoglycemia protocol - POC blood glucose ACHS - patient still not eating this evening (11/13), BS in the 's. Will hold all of patient's home DM medications (Glipizide, Lantus, NovoLog). Resume when appropriate. - correct regimen ordered - moderate dose TIDWM - A1C 6.5% in 2023, update (4) Hypertension: Qualifiers: Hypertension type: primary hypertension Qualified Code(s): I10 - Essential (primary) hypertension Code(s): I10 - Essential (primary) hypertension Status: Chronic Assessment and Plan: - chronic, [id number]. Significantly hypoTN in the ED, mild lowest at 77/53. Resolved with fluids - 1L bolus, given additional L. Will hold home medication (Coreg) at this time. Resume when appropriate. - monitor Plan Diet: heart healthy GI Prophylaxis: not currently indicated DVT Prophylaxis: SCDs IV fluids: 2L bolus -> 125 mL/hr Lines/Tubes: peripheral IV Code Status: DNR Quality VTE Prophylaxis VTE prophylaxis: mechanical ordered Hospitalist MIPS Advance Care Plan I have confirmed that the patient's Advanced Care Plan is present, code status is documented, or surrogate decision maker is listed in patient medical record.: Yes Medication Reconciliation I have utilized all available resources to obtain, update and review the patients current medications (includes all prescriptions, OTC, herbals, cannabis, and nutritional supplements).: Yes
--- NOTE | 2024-11-13 20:07 | WNDPHOTO ---
PHOTO ONLY - See Nursing Notes and/ or assessments for documentation.
--- NOTE | 2024-11-13 20:27 | ADMGEN ---
This patient, Brent Higginbotham, was admitted to IMU Room 201-01. Patient/family oriented to hospital policies and general routines including ID bracelet, bed and alarms, visiting hours, pain management, procedures, bathroom and other care routines, personal items, smoking policy, room service/diet, and visiting hours. Information on how to activate the Rapid Response Team has been discussed. Patient/Family are encouraged to report perceived risks to care and to ask questions if they do not understand what they are told or what they should do.
[2024-11-13] MEDS: ROSUVASTATIN 20 MG TABLET 40 MG PO (22:30)
[2024-11-13] MEDS: MELATONIN 5 MG TABLET PO (22:30)
[2024-11-13 22:54] LABS: Creatine Kinase 444 U/L (55-170)
[2024-11-14] VITALS (20 sets, daily range): BP systolic 102–129; BP diastolic 30–48; PULSE 52–61; RESP 20–22; TEMP 36.4–37.1; O2SAT 96–100; BMI 30.9
[2024-11-14 04:32] LABS: Add Urine Microscopic? YES; Appearance Urine Clear (Clear); Glucose Urine UA Negative (Negative); Leukocyte Esterase Ur Trace LEU/UL (Negative); Nitrate Urine Negative (Negative); Specific Grav Ur 1.014 (1.001-1.035); Total Protein Urine Random 50 mg/dL; Ur Ttl Prot Creatinine Ratio 0.36 mg/mg (0-0.20)
[2024-11-14] MEDS: BRINZOLAMIDE 1% OPHTH SUSP 10 ML 1 DROP EACH EYE ×3 (05:33→21:01)
[2024-11-14] MEDS: BRIMONIDINE TARTRATE 0.2% OP SOLN 5 ML BTL 1 DROP EACH EYE ×3 (05:33→21:01)
[2024-11-14] MEDS: SODIUM CHLORIDE 0.9% IV 1,000 ML 125 ML IV CONT ×2 (05:33→15:24)
[2024-11-14 06:10] LABS: Hematocrit 34.0 % (42.0-52.0); Hemoglobin 10.7 g/dL (14.0-18.0); Immature Granulocyte Percent A 1.4 % (0-0.5); Lymphocytes Absolute Auto 1.09 K/mm3 (0.9-3.2); Mean Corpuscular HGB Conc 31.5 g/dl (32-36); Mean Corpuscular Hemoglobin 28.2 pg (26-34); Mean Corpuscular Volume 89.5 fl (80-100); Nucleated Red Blood Cells Absolute Auto 0.000 K/mm3 (0.0-0.012); Nucleated Red Blood Cells Perc 0.0 % (0.0-0.2); Platelet Count Result 197 k/mm3 (150-375); Red Blood Count 3.80 M/mm3 (4.6-6.20); White Blood Count 10.6 K/mm3 (4.5-10.0)
[2024-11-14 06:22] LABS: Alanine Aminotransferase 21 U/L (6-50); Albumin Level 3.1 g/dL (3.5-5.1); Alkaline Phosphatase 128 U/L (38-126); Anion Gap 11 mmol/L (4-12); Aspartate Amino Transferase 32 U/L (17-59); Bilirubin,Total 0.2 mg/dL (0.2-1.3); Blood Urea Nitrogen 60 mg/dL (9-20); Calcium 8.9 mg/dL (8.4-10.2); Carbon Dioxide 17 mmol/L (22-30); Chloride 111 mmol/L (98-107); Estimated CRCL calculation 15 ml/min; Estimated Glomerular Filt Rate 10; Glucose 101 mg/dL (65-110); Magnesium 1.9 mg/dL (1.6-2.3); Potassium 4.7 mmol/L (3.4-5.0); Sodium 139 mmol/L (137-145); Total Protein 6.4 g/dL (6.3-8.2)
[2024-11-14 06:31] LABS: Hemoglobin A1C 6.1 % (<5.7)
--- NOTE | 2024-11-14 08:00 | PCRCNOTE ---
PT. VERY SLEEPY UNABLE TO WAKE ENOUGH TO PROPERLY TAKE DPI.
--- NOTE | 2024-11-14 08:50 | PC.NURSE ---
BP right arm 103/37, left arm 102/39. Dr. Molina made aware. New orders noted for CT of chest/abd/pelv. Continue maintenance fluids and monitor BP.
--- NOTE | 2024-11-14 09:21 | P.CONNP_ITS ---
Assessment and Plan Assessment and plan (1) Acute kidney injury: Code(s): N17.9 - Acute kidney failure, unspecified Status: Acute Assessment and Plan: * as noted by admission labs * baseline creatinine seems to run ~ 1.1 - 1.3mg/dl * creatinine 1.13mg/dl in July 2024 * suspect multifactorial etiology: * prerenal factors * hypotension/hemodynamic instability * urinary retention/obstruction * infection (gallbladder?) * other(?) * follow-up on urine studies * CT of A/P noted * check renal ultrasound * agree with trial of IVFs * follow trend of repeat labs and UOP (2) SBO (small bowel obstruction): Code(s): K56.609 - Unspecified intestinal obstruction, unspecified as to partial versus complete obstruction Status: Acute Assessment and Plan: * CT demonstrated findings which may represent partial distal bowel obstruction with significant air distention of the colon just before the and anastomotic staple line and distal decompression * Surgery consulted (3) Dilated gallbladder: Code(s): K82.8 - Other specified diseases of gallbladder Status: Acute Assessment and Plan: * admission CT demonstrated significant gallbladder distention with trace surrounding inflammatory change * normal LFTs * abdominal exam positive for diffuse tenderness to palpation * no nausea or vomiting * Surgery consulted (4) Bilateral nephrolithiasis: Code(s): N20.0 - Calculus of kidney Status: Acute Assessment and Plan: * admission CT scan results noted: * 13 mm bulky calcification within the left renal pelvis * mild left-sided hydroureteronephrosis without an obstructing stone identified * staghorn calculus within the upper pole and interpolar region of the right kidney without hydroureteronephrosis * given #1, will consult Urology (5) Hypotension: Qualifiers: Hypotension type: hypotension due to hypovolemia Qualified Code(s): E 86.1 - Hypovolemia Code(s): I95.9 - Hypotension, unspecified Status: Acute Assessment and Plan: * as noted in ER * improvement noted following IVF bolus * holding BP medications * continue trial of IVFs * follow trend of hemodynamics (6) Type 2 diabetes mellitus: Qualifiers: Diabetes mellitus salvage determiner insulin use: with salvage determiner use Diabetes mellitus complication status: with hypoglycemia Diabetes mellitus complication detail: without coma Qualified Code(s): E11.649 - Type 2 diabetes mellitus with hypoglycemia without coma; Z79.4 - salvage determiner (current) use of insulin Code(s): E11.9 - Type 2 diabetes mellitus without complications Status: Chronic Assessment and Plan: * issues with hypoglyemia prior to admission noted * follow accu-cheks * glycemic control per hospitalist I will continue to follow the patient with you while he remains hospitalized and make further recommendations as deemed necessary. Thank you for allowing me to participate in the care of this patient. L History of Present Illness Reason for Consult Consult date: 11/14/24 Reason for consult: acute renal failure Chief Complaint Chief complaint: Dehydration/Weakness/Arf History of Present Illness Narrative: Most of the information I have obtained is from review of the electronic medical record as well as discussion with the physicians/nurses involved in the patient's care as his difficult for the patient give me a full and complete history the events that led to his admission to the hospital. The patient is a 69-year-old male with a past medical history as outlined below who presented to [facility] Emergency Room from his nursing facility due to generalized weakness. The patient reports he has had generalized weakness for the past week if not longer. It is accompanied by poor appetite and poor PO intake as well. Furthermore, his nursing facility reported that the patient has been having hypoglycemic events, which occurred most recently the day prior to admission.. He is unsure how low his glucose levels were and has poor memory of events the day prior to admission and even today. He denies accompanying abdominal pain, chest pain, shortness of breath, dysuria, difficulty urinating, fever, and chills. He does endorse a mild headache and pain in his right shoulder that has been chronic since his CVA. Evaluation emergency room demonstrated the patient to be hemodynamically stable although his blood pressure was on the lower side of normal and afebrile but he was requiring 4 L of supplemental oxygen to maintain his oxygen saturations. Routine blood work noted a WBC 10.4, hemoglobin 12.3, normal coagulation studies, a creatinine 5.43mg/dl, glucose 90, lactic 0.8, CRP 2.8. His CXR showed no focal consolidation, mild perihilar bronchial wall thickening a finding suggestive of respiratory bronchiolitis. A CT scan of the chest, abdomen, and pelvis was done which demonstrated bilateral renal calculi, asymmetric renal thickening of the base of bladder for which triggered visualization was recommended, partial distal small-bowel obstruction and significant gallbladder distension with trace surrounding inflammatory change. Given his constellation symptoms in conjunction with his laboratory and imaging findings, he was admitted hospital for further evaluation therapy. Renal consultation was requested due to his acute kidney injury/ acute renal failure. From review his labs, his baseline renal function is fairly normal without any critical electrolytes, metabolic acidosis or any other issues. Despite this fact, does have numerous risk factors for kidney problems including vascular disease in the form of his CVA and coronary artery disease, BPH, nephrolithiasis, smoking, COPD, obstructive sleep hypertension and diabetes in fact, would not be surprising be has some underlying renal insufficiency that has yet to manifests itself despite the fact that he has a fairly normal creatinine. However, as noted admission, he has suffered this significant and severe acute insult to his kidneys. Currently, the time my evaluation, he does not appear to be any acute distress. Review of Systems 2 Review of Systems: As per HPI. FORMERLY [facility], [facility] Past Medical History Medical History (Updated 11/24/24 @ 07:55 by Pat Gonzalez MD) Chronic right arterial ischemic stroke, MCA (middle cerebral artery) Coronary artery disease Benign prostatic hyperplasia Tobacco abuse Chronic obstructive pulmonary disease Obstructive sleep apnea Intolerant of CPAP Hypertension Type 2 diabetes mellitus Cerebrovascular accident Surgical History Surgical History (Updated 11/20/24 @ 14:07 by Anam Daniel DO) S/P total colectomy Laparoscopic subtotal colectomy with ileorectal anastomosis 12/25/[address] Uche Laurent at [facility] History of coronary artery stent placement History of cardiac catheterization Family History Family History Other Family history non-contributory Social History Social History Social History: Surrogate medical decision maker: Clarita Hobbs, mother. Code status: Full code. Smoking packs per day: 1 Smoking cigarettes per day: 20.0 Years smoked: 50 Smoking pack-years: 50.00 Smoking status: Current every day smoker Tobacco type: cigarettes Alcohol intake: former Substance use: never Do You Feel Safe in your Home?: Yes Lack of Transportation: No Lack of Food: Never True Current Housing: I Have Housing Concerned About Future Housing: No Difficulty Paying Gas/Electric Bills: No Difficulty Paying for Meds: No Currently Unemployed: No Education: High School Diploma/GED Difficulty w/ Childcare or Family Care: No Additional living arrangements comments: Resident at [facility]. 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 Spiritual care concerns: No Meds Home Medications and Allergies Home Medications ?Medication ?Instructions ?Recorded ?Confirmed ?Type acetaminophen 325 mg tablet 650 mg PO Q8H PRN Pain, Mild 11/07/23 11/13/24 History albuterol sulfate 90 mcg/actuation 2 puff inhalation Q4H PRN Wheezing 11/07/23 11/13/24 History aerosol inhaler aspirin 81 mg tablet,delayed 81 mg PO DAILY 11/07/23 11/13/24 History release cabergoline 0.5 mg tablet 0.5 mg PO 2XW 11/07/23 11/13/24 History carboxymethylcellulose sodium 0.5 1 drp EACH EYE QID PRN Dry Eyes 11/07/23 11/13/24 History % eye drops in a dropperette (Refresh Plus) carvedilol 3.125 mg tablet 3.125 mg PO BID 11/07/23 11/13/24 History dextromethorphan-guaifenesin 10 10 ml PO Q4-6H PRN Cough 11/07/23 11/13/24 History mg-100 mg/5 mL oral syrup escitalopram oxalate 20 mg tablet 15 mg PO QAM 11/07/23 11/13/24 History gabapentin 100 mg capsule 100 mg PO TID 11/07/23 11/13/24 History glipizide 5 mg tablet 5 mg PO QAM 11/07/23 11/13/24 History loperamide 2 mg capsule 2 mg PO Q6H PRN Diarrhea 11/07/23 11/13/24 History (Anti-Diarrheal (loperamide)) melatonin 5 mg tablet 5 mg PO HS 11/07/23 11/13/24 History ondansetron 4 mg disintegrating 4 mg PO Q4H PRN Nausea And Vomiting 11/07/23 11/13/24 History tablet rosuvastatin 40 mg tablet 40 mg PO QHS 11/07/23 11/13/24 History sennosides 8.6 mg tablet (Senokot) 8.6 mg PO PRN PRN Constipation 11/07/23 11/13/24 History tamsulosin 0.4 mg capsule 0.4 mg PO QAM 11/07/23 11/13/24 History tiotropium bromide 2.5 2 puff inhalation QAM 11/07/23 11/13/24 History mcg/actuation mist for inhalation (Spiriva Respimat) benzonatate 100 mg capsule 100 mg PO TID PRN cough 05/16/24 11/13/24 History brinzolamide 1 %-brimonidine 0.2 % 1 drp EACH EYE TID 05/18/24 11/13/24 History eye drops,suspension (Simbrinza) budesonide 160 mcg-glycopyr 9 2 inh inhalation BID 05/18/24 11/13/24 History mcg-formot 4.8 mcg/actuation HFA inhaler (Breztri Aerosphere) oxycodone 5 mg tablet 5 mg PO QHS pain 05/18/24 11/13/24 History insulin aspart U-100 100 unit/mL 1 sliding scale dose subcut 05/20/24 11/13/24 Rx (3 mL) subcutaneous pen (Novolog USEASDIRECTD #15 mL FlexPen U-100 Insulin aspart) insulin glargine 100 unit/mL 15 unit (0.15 mL) subcut HS 15 05/20/24 11/13/24 Rx subcutaneous solution (Lantus days #2.25 mL U-100 Insulin) cholestyramine 4 gram oral powder 4 g PO TID 11/13/24 11/13/24 History lidocaine 5 % topical patch 1 patch topical DAILY back pain 11/13/24 11/13/24 History psyllium husk 0.4 gram capsule 0.4 g PO DAILY PRN constipation 11/13/24 11/13/24 History (Fiber (psyllium husk)) Allergies Allergy/AdvReac Type Severity Reaction Status Date / Time hydralazine AdvReac Vomiting Verified 11/13/24 14:12 lisinopril AdvReac Rash Verified 11/13/24 14:12 metformin AdvReac Diarrhea Verified 11/13/24 14:12 pioglitazone AdvReac Nausea Verified 11/13/24 14:12 simvastatin AdvReac Rash Verified 11/13/24 14:12 Vital Signs Vital Signs Temp Pulse Resp BP Pulse Ox O2 Del Method O2 Flow Rate 11/14/24 08:50 102/39 L 11/14/24 08:16 99 Nasal Cannula 3 11/14/24 08:00 52 L 11/14/24 08:00 98 Nasal Cannula 4 11/14/24 07:58 98.4 F 53 L 21 H 103/37 L 99 11/14/24 06:00 60 11/14/24 04:00 61 11/14/24 04:00 96 Nasal Cannula 4 11/14/24 03:50 97.8 F 56 L 20 125/48 L 96 11/14/24 02:00 57 L 11/14/24 00:00 54 L 11/14/24 00:00 98 Nasal Cannula 4 11/14/24 00:00 98.7 F 54 L 20 128/48 L 98 11/13/24 22:00 52 L 11/13/24 20:43 97 Nasal Cannula 4 11/13/24 20:00 56 L 11/13/24 19:45 98.4 F 55 L 20 111/43 L 97 11/13/24 18:46 51 L 16 98/63 L 94 11/13/24 18:34 20 96 11/13/24 18:15 49 L 11 L 96 11/13/24 18:02 53 L 14 95 11/13/24 18:01 52 L 15 121/70 94 11/13/24 17:31 48 L 15 129/59 L 96 11/13/24 17:16 50 L 23 H 89/79 L 96 11/13/24 17:11 50 L 18 94 11/13/24 17:06 52 L 20 93/67 L 99 11/13/24 16:18 51 L 14 97 11/13/24 16:13 52 L 14 96 11/13/24 15:45 51 L 14 95 11/13/24 15:30 50 L 17 94 11/13/24 15:18 16 93/69 L 88 L 11/13/24 15:01 45 L 22 H 79/42 L 11/13/24 14:59 12 77/53 L 11/13/24 14:53 18 84/47 L 11/13/24 14:46 48 L 15 86/53 L 11/13/24 14:32 47 L 19 95 11/13/24 14:31 13 95/56 L 99 11/13/24 14:30 13 99 11/13/24 14:09 49 L 20 108/49 L 95 11/13/24 14:06 52 L 16 11/13/24 13:44 94 Nasal Cannula 4 11/13/24 13:43 51 L 11/13/24 13:36 97.4 F L 53 L 18 100 Nasal Cannula 4 11/13/24 13:31 49 L 12 107/40 L 94 Exam 2 Narrative: GENERAL APPEARANCE: somewhat chronically ill-appearing male in no acute distress HEENT: normocephalic, atraumatic, normal conjunctiva and sclera, nares patient NECK: no lymphadenopathy, thyromegaly, or JVD MOUTH: normal lips, teeth, and gums CARDIOVASCULAR: RRR, normal S1 and S2, no rub RESPIRATORY: clear to auscultation ABDOMEN: soft, nontender, nondistended, positive bowel sounds present EXTREMITIES: no evidence of cyanosis, clubbing, or edema NEUROLOGICAL: somnolent -- difficult to arouse; no focal deficits noted Results Lab Results 11/24/24 05:52 11/24/24 05:52 Lab results: Most recent lab results Calcium 8.9 mg/dL (8.4-10.2) 11/14/24 06:05 Phosphorus 6.5 mg/dL (2.5-4.5) H 11/14/24 06:05 Magnesium 1.9 mg/dL (1.6-2.3) 11/14/24 06:05 Urine Creatinine 137.7 mg/dL 11/14/24 04:07 Urine Creatinine 140.6 mg/dL 11/14/24 04:07
[2024-11-14] MEDS: GABAPENTIN 100 MG CAPSULE PO (09:40)
[2024-11-14] MEDS: ASPIRIN 81 MG ENTERIC TABLET PO (09:40)
[2024-11-14] MEDS: TAMSULOSIN HCL 0.4 MG CAPSULE PO (09:40)
[2024-11-14] MEDS: ESCITALOPRAM OXALATE 5 MG TABLET 15 MG PO (09:41)
[2024-11-14] MEDS: cefTRIAXone 1 GM in SODIUM CHLORIDE 0.9% IV 50 ML 100 ML IVPB (12:13)
[2024-11-14] MEDS: metroNIDAZOLE 500 MG/ISO 100ML 500 MG/100 ML BAG 100 MG IVPB ×2 (12:13→21:01)
--- NOTE | 2024-11-14 13:03 | PM.CNGS ---
Assessment and Plan Assessment and plan (1) Dilated gallbladder: Code(s): K82.8 - Other specified diseases of gallbladder Status: Acute Assessment and Plan: Patient presented yesterday with generalized weakness and lack of appetite. CT demonstrated significant gallbladder distention with trace surrounding inflammatory change. Liver enzymes normal. Abdominal exam positive for diffuse tenderness to palpation, but unable to assess if localized to right upper quadrant due to altered mental status of patient. Reportedly, patient's last bowel movement was an episode of diarrhea yesterday. No nausea or vomiting. Patient currently NPO. Not a great surgical candidate d/t comorbidities. RUQ US ordered for tomorrow. Consider HIDA scan if US inconclusive or symptoms persist. (2) SBO (small bowel obstruction): Code(s): K56.609 - Unspecified intestinal obstruction, unspecified as to partial versus complete obstruction Status: Acute Assessment and Plan: Patient presented yesterday generalized weakness and lack of appetite. CT demonstrated findings which may represent partial distal bowel obstruction with significant air distention of the colon just before the and anastomotic staple line and distal decompression. Dilation seems to be involving mostly colon. Patient has history of colectomy and radiation roughly 3 years ago per chart. Reportedly last bowel movement was yesterday. No nausea or vomiting. Diffuse abdominal tenderness, but difficult to assess severity due to patient's altered mental status. Lactic acid 0.6. Consider contrast enema at some pint to assess for anastomotic stricture. Could consider NG tube placement if patient develops nausea and vomiting. (3) Hypertension: Qualifiers: Hypertension type: primary hypertension Qualified Code(s): I10 - Essential (primary) hypertension Code(s): I10 - Essential (primary) hypertension Status: Chronic (4) Coronary artery disease: Code(s): I25.10 - Atherosclerotic heart disease of [place] coronary artery without angina pectoris Status: Acute (5) Type 2 diabetes mellitus: Qualifiers: Diabetes mellitus complication detail: without coma Diabetes mellitus complication status: with hypoglycemia Diabetes mellitus long-term insulin use: with long-term use Qualified Code(s): E11.649 - Type 2 diabetes mellitus with hypoglycemia without coma; Z79.4 - nursing home (current) use of insulin Code(s): E11.9 - Type 2 diabetes mellitus without complications Status: Chronic (6) Acute kidney injury: Code(s): N17.9 - Acute kidney failure, unspecified Status: Acute Assessment and Plan: Nephrology and urology following. Renal ultrasound did not demonstrate any definite abnormality. (7) Chronic obstructive pulmonary disease: Code(s): J44.9 - Chronic obstructive pulmonary disease, unspecified Status: Acute (8) Obstructive sleep apnea: Code(s): G47.33 - Obstructive sleep apnea (adult) (pediatric) Status: Acute Plan Discussed patient's case and plan of care with Dr. Daniel. History of Present Illness Consult details Consult date: 11/14/24 Reason for consult: other (CT showing significant gallbladder distention, partial bowel obstruction) Requesting physician: Lizet Molina MD Narrative: Patient is a 69-year-old male with history of CVA, CAD (s/p stent placement and cardiac cateterization), COPD, JAMES intolerant of CPAP, diabetes mellitus, hypertension, and colon cancer (s/p colectomy and radiation 3 yrs ago per chart) who we have been asked to see in surgical consultation after CT demonstrated gallbladder distention and partial bowel obstruction. Patient 1st presented to the ED last night with complaints of worsening generalized weakness x1 week. Reportedly, he has not been eating or drinking well and sugars have been dropping. Of note, patient is very somnolent upon exam and therefore a poor historian. History primarily obtained from nursing staff and chart review. ED workup included an abdominal CT which demonstrated significant gallbladder distention, with trace surrounding inflammatory change, as well as significant air distension of the colon just before than an anastomotic staple line and distal decompression. According to nursing staff, patient's last bowel movement was yesterday. He has not noted any nausea or vomiting, but he has not been eating much. NPO as of this morning. When asked, patient does not mention any abdominal pain, however palpation of his abdomen elicited some pain. WBC count today 10.6, up from 10.4 yesterday. Currently on ceftriaxone and metronidazole. Liver enzymes normal, aside from a mildly elevated alk-phos at 128. Blood glucose has remained fairly normal upon this admission, aside from slightly elevated level of 123 today. BUN and creatinine elevated, prompting Nephrology consult. Renal ultrasound today demonstrated no definite abnormality. [facility] Past Medical History Medical History (Updated 11/14/24 @ 14:03 by Demetra Eckert APRN) Coronary artery disease Benign prostatic hyperplasia Tobacco abuse Chronic obstructive pulmonary disease Obstructive sleep apnea Intolerant of CPAP Hypertension Type 2 diabetes mellitus Cerebrovascular accident Surgical History Surgical History History of coronary artery stent placement History of cardiac catheterization History of partial colectomy Family History Family History Other Family history non-contributory Social History Social History Social History: Surrogate medical decision maker: Clarita Hobbs, mother. Code status: Full code. Smoking packs per day: 1 Smoking cigarettes per day: 20.0 Years smoked: 50 Smoking pack-years: 50.00 Smoking status: Current every day smoker Tobacco type: cigarettes Alcohol intake: former Substance use: never Do You Feel Safe in your Home?: Yes Lack of Transportation: No Lack of Food: Never True Current Housing: I Have Housing Concerned About Future Housing: No Difficulty Paying Gas/Electric Bills: No Difficulty Paying for Meds: No Currently Unemployed: No Education: High School Diploma/GED Difficulty w/ Childcare or Family Care: No Additional living arrangements comments: Resident at [facility]. 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 Spiritual care concerns: No Meds Home Medications and Allergies Home Medications ?Medication ?Instructions ?Recorded ?Confirmed ?Type acetaminophen 325 mg tablet 650 mg PO Q8H PRN Pain, Mild 11/07/23 11/13/24 History albuterol sulfate 90 mcg/actuation 2 puff inhalation Q4H PRN Wheezing 11/07/23 11/13/24 History aerosol inhaler aspirin 81 mg tablet,delayed 81 mg PO DAILY 11/07/23 11/13/24 History release cabergoline 0.5 mg tablet 0.5 mg PO 2XW 11/07/23 11/13/24 History carboxymethylcellulose sodium 0.5 1 drp EACH EYE QID PRN Dry Eyes 11/07/23 11/13/24 History % eye drops in a dropperette (Refresh Plus) carvedilol 3.125 mg tablet 3.125 mg PO BID 11/07/23 11/13/24 History dextromethorphan-guaifenesin 10 10 ml PO Q4-6H PRN Cough 11/07/23 11/13/24 History mg-100 mg/5 mL oral syrup escitalopram oxalate 20 mg tablet 15 mg PO QAM 11/07/23 11/13/24 History gabapentin 100 mg capsule 100 mg PO TID 11/07/23 11/13/24 History glipizide 5 mg tablet 5 mg PO QAM 11/07/23 11/13/24 History loperamide 2 mg capsule 2 mg PO Q6H PRN Diarrhea 11/07/23 11/13/24 History (Anti-Diarrheal (loperamide)) melatonin 5 mg tablet 5 mg PO HS 11/07/23 11/13/24 History ondansetron 4 mg disintegrating 4 mg PO Q4H PRN Nausea And Vomiting 11/07/23 11/13/24 History tablet rosuvastatin 40 mg tablet 40 mg PO QHS 11/07/23 11/13/24 History sennosides 8.6 mg tablet (Senokot) 8.6 mg PO PRN PRN Constipation 11/07/23 11/13/24 History tamsulosin 0.4 mg capsule 0.4 mg PO QAM 11/07/23 11/13/24 History tiotropium bromide 2.5 2 puff inhalation QAM 11/07/23 11/13/24 History mcg/actuation mist for inhalation (Spiriva Respimat) benzonatate 100 mg capsule 100 mg PO TID PRN cough 05/16/24 11/13/24 History brinzolamide 1 %-brimonidine 0.2 % 1 drp EACH EYE TID 05/18/24 11/13/24 History eye drops,suspension (Simbrinza) budesonide 160 mcg-glycopyr 9 2 inh inhalation BID 05/18/24 11/13/24 History mcg-formot 4.8 mcg/actuation HFA inhaler (Breztri Aerosphere) oxycodone 5 mg tablet 5 mg PO QHS pain 05/18/24 11/13/24 History insulin aspart U-100 100 unit/mL 1 sliding scale dose subcut 05/20/24 11/13/24 Rx (3 mL) subcutaneous pen (Novolog USEASDIRECTD #15 mL FlexPen U-100 Insulin aspart) insulin glargine 100 unit/mL 15 unit (0.15 mL) subcut HS 15 05/20/24 11/13/24 Rx subcutaneous solution (Lantus days #2.25 mL U-100 Insulin) cholestyramine 4 gram oral powder 4 g PO TID 11/13/24 11/13/24 History lidocaine 5 % topical patch 1 patch topical DAILY back pain 11/13/24 11/13/24 History psyllium husk 0.4 gram capsule 0.4 g PO DAILY PRN constipation 11/13/24 11/13/24 History (Fiber (psyllium husk)) Allergies Allergy/AdvReac Type Severity Reaction Status Date / Time hydralazine AdvReac Vomiting Verified 11/13/24 14:12 lisinopril AdvReac Rash Verified 11/13/24 14:12 metformin AdvReac Diarrhea Verified 11/13/24 14:12 pioglitazone AdvReac Nausea Verified 11/13/24 14:12 simvastatin AdvReac Rash Verified 11/13/24 14:12 Vital Signs Vital Signs - 24 hr 11/13/24 13:31 11/13/24 13:36 11/13/24 13:43 Temperature 97.4 F L Pulse Rate 49 L 53 L 51 L Respiratory Rate 12 18 Blood Pressure 107/40 L Pulse Oximetry 94 100 Oxygen Delivery Nasal Cannula Oxygen Flow Rate 4 11/13/24 13:44 11/13/24 14:06 11/13/24 14:09 Temperature Pulse Rate 52 L 49 L Respiratory Rate 16 20 Blood Pressure 108/49 L Pulse Oximetry 94 95 Oxygen Delivery Nasal Cannula Oxygen Flow Rate 4 11/13/24 14:30 11/13/24 14:31 11/13/24 14:32 Temperature Pulse Rate 47 L Respiratory Rate 13 13 19 Blood Pressure 95/56 L Pulse Oximetry 99 99 95 Oxygen Delivery Oxygen Flow Rate 11/13/24 14:46 11/13/24 14:53 11/13/24 14:59 Temperature Pulse Rate 48 L Respiratory Rate 15 18 12 Blood Pressure 86/53 L 84/47 L 77/53 L Pulse Oximetry Oxygen Delivery Oxygen Flow Rate 11/13/24 15:01 11/13/24 15:18 11/13/24 15:30 Temperature Pulse Rate 45 L 50 L Respiratory Rate 22 H 16 17 Blood Pressure 79/42 L 93/69 L Pulse Oximetry 88 L 94 Oxygen Delivery Oxygen Flow Rate 11/13/24 15:45 11/13/24 16:13 11/13/24 16:18 Temperature Pulse Rate 51 L 52 L 51 L Respiratory Rate 14 14 14 Blood Pressure Pulse Oximetry 95 96 97 Oxygen Delivery Oxygen Flow Rate 11/13/24 17:06 11/13/24 17:11 11/13/24 17:16 Temperature Pulse Rate 52 L 50 L 50 L Respiratory Rate 20 18 23 H Blood Pressure 93/67 L 89/79 L Pulse Oximetry 99 94 96 Oxygen Delivery Oxygen Flow Rate 11/13/24 17:31 11/13/24 18:01 11/13/24 18:02 Temperature Pulse Rate 48 L 52 L 53 L Respiratory Rate 15 15 14 Blood Pressure 129/59 L 121/70 Pulse Oximetry 96 94 95 Oxygen Delivery Oxygen Flow Rate 11/13/24 18:15 11/13/24 18:34 11/13/24 18:46 Temperature Pulse Rate 49 L 51 L Respiratory Rate 11 L 20 16 Blood Pressure 98/63 L Pulse Oximetry 96 96 94 Oxygen Delivery Oxygen Flow Rate 11/13/24 19:45 11/13/24 20:00 11/13/24 20:43 Temperature 98.4 F Pulse Rate 55 L 56 L Respiratory Rate 20 Blood Pressure 111/43 L Pulse Oximetry 97 97 Oxygen Delivery Nasal Cannula Oxygen Flow Rate 4 11/13/24 22:00 11/14/24 00:00 11/14/24 00:00 Temperature 98.7 F Pulse Rate 52 L 54 L Respiratory Rate 20 Blood Pressure 128/48 L Pulse Oximetry 98 98 Oxygen Delivery Nasal Cannula Oxygen Flow Rate 4 11/14/24 00:00 11/14/24 02:00 11/14/24 03:50 Temperature 97.8 F Pulse Rate 54 L 57 L 56 L Respiratory Rate 20 Blood Pressure 125/48 L Pulse Oximetry 96 Oxygen Delivery Oxygen Flow Rate 11/14/24 04:00 11/14/24 04:00 11/14/24 06:00 Temperature Pulse Rate 61 60 Respiratory Rate Blood Pressure Pulse Oximetry 96 Oxygen Delivery Nasal Cannula Oxygen Flow Rate 4 11/14/24 07:58 11/14/24 08:00 11/14/24 08:00 Temperature 98.4 F Pulse Rate 53 L 52 L Respiratory Rate 21 H Blood Pressure 103/37 L Pulse Oximetry 99 98 Oxygen Delivery Nasal Cannula Oxygen Flow Rate 4 11/14/24 08:00 11/14/24 08:16 11/14/24 08:50 Temperature Pulse Rate Respiratory Rate Blood Pressure 102/39 L Pulse Oximetry 99 99 Oxygen Delivery Nasal Cannula Nasal Cannula Oxygen Flow Rate 4 3 11/14/24 10:00 11/14/24 11:42 Temperature 97.5 F L Pulse Rate 54 L 54 L Respiratory Rate 20 Blood Pressure 107/37 L Pulse Oximetry 98 Oxygen Delivery Oxygen Flow Rate Exam Const: General: no acute distress Eyes: General: appearance normal, both eyes and all related structures Neck: Neck: supple Resp: Effort & Inspection: normal respiratory effort Cardio: Rate: regular rate GI: Inspection: distended, obesity and scar (midline extraction scar, likely from previous colon resection) GI Palp: Yes Tenderness to palpation present (GI) Auscultation: abnormal bowel sounds (hypoactive) Rectal Exam: deferred Other: Diffusely tender. Unable to assess if localized to RUQ d/t patient's altered mental status. : General: Yes bladder normal to palpation Skin: General skin exam: normal color and no rashes or lesions noted Extrem: General: normal to inspection Psych: Other: Patient somnolent and not answering questions well. Results Labs 11/14/24 06:05 11/14/24 06:05 Labs: Abnormal lab results 11/13/24 11/14/24 11/14/24 Range/Units 14:21 04:07 06:05 WBC 10.4 H 10.6 H (4.5-10.0) K/mm3 RBC 4.34 L 3.80 L (4.6-6.20) M/mm3 Hgb 12.3 L 10.7 L (14.0-18.0) g/dL Hct 38.5 L 34.0 L (42.0-52.0) % MCHC 31.9 L 31.5 L (32-36) g/dl RDW 15.7 H 15.4 H (11.5-14.5) % Immature Gran % (Auto) 0.9 H 1.4 H (0-0.5) % Neut % (Auto) 75.8 H 77.6 H (45.5-73.1) % Lymph % (Auto) 13.4 L 10.3 L (18.3-44.2) % Bonner # (Auto) 0.7 H 0.8 H (0.1-0.6) K/mm3 Abs Immat Gran (auto) 0.09 H 0.15 H (0.00-0.031) K/mm3 Absolute Neuts (auto) 7.9 H 8.2 H (1.3-6.7) K/mm3 Chloride 108 H 111 H (98-107) mmol/L Carbon Dioxide 18 L 17 L (22-30) mmol/L Anion Gap 14 H (4-12) mmol/L BUN 61 H D 60 H (9-20) mg/dL Creatinine 5.43 H 5.46 H (0.7-1.3) mg/dL Estimated GFR 11 L 10 L (59 - ) POC Capillary Glucose (65-105) mg/dl Hemoglobin A1c 6.1 H (<5.7) % Lactic Acid (0.7-2.0) mmol/L Phosphorus 6.5 H (2.5-4.5) mg/dL Alkaline Phosphatase 144 H 128 H (38-126) U/L Total Creatine Kinase 444 H (55-170) U/L C-Reactive Protein 2.8 H (<1.0) mg/dL Albumin 3.1 L (3.5-5.1) g/dL Urine Protein 1+ H (Negative) mg/dL Ur Blood (Man) 2+ H (Negative) Leukocyte Esterase Rfl Trace H (Negative) MARIA L/UL Urine WBC 6-10 H (0-3) /hpf Protein/Creat Ratio 2 0.36 H (0-0.20) mg/mg 11/14/24 11/14/24 Range/Units 10:44 11:05 WBC (4.5-10.0) K/mm3 RBC (4.6-6.20) M/mm3 Hgb (14.0-18.0) g/dL Hct (42.0-52.0) % MCHC (32-36) g/dl RDW (11.5-14.5) % Immature Gran % (Auto) (0-0.5) % Neut % (Auto) (45.5-73.1) % Lymph % (Auto) (18.3-44.2) % Bonner # (Auto) (0.1-0.6) K/mm3 Abs Immat Gran (auto) (0.00-0.031) K/mm3 Absolute Neuts (auto) (1.3-6.7) K/mm3 Chloride (98-107) mmol/L Carbon Dioxide (22-30) mmol/L Anion Gap (4-12) mmol/L BUN (9-20) mg/dL Creatinine (0.7-1.3) mg/dL Estimated GFR (59 - ) POC Capillary Glucose 123 H (65-105) mg/dl Hemoglobin A1c (<5.7) % Lactic Acid 0.6 L (0.7-2.0) mmol/L Phosphorus (2.5-4.5) mg/dL Alkaline Phosphatase (38-126) U/L Total Creatine Kinase (55-170) U/L C-Reactive Protein (<1.0) mg/dL Albumin (3.5-5.1) g/dL Urine Protein (Negative) mg/dL Ur Blood (Man) (Negative) Leukocyte Esterase Rfl (Negative) MARIA L/UL Urine WBC (0-3) /hpf Protein/Creat Ratio 2 (0-0.20) mg/mg Diabetes panel 11/13/24 11/14/24 Range/Units 14:21 06:05 Sodium 140 139 (137-145) mmol/L Potassium 4.4 4.7 (3.4-5.0) mmol/L Chloride 108 H 111 H (98-107) mmol/L Carbon Dioxide 18 L 17 L (22-30) mmol/L BUN 61 H D 60 H (9-20) mg/dL Creatinine 5.43 H 5.46 H (0.7-1.3) mg/dL Glucose 90 101 (65-110) mg/dL Hemoglobin A1c 6.1 H (<5.7) % Calcium 9.6 8.9 (8.4-10.2) mg/dL AST 38 32 (17-59) U/L ALT 28 21 (6-50) U/L Alkaline Phosphatase 144 H 128 H (38-126) U/L Total Protein 7.9 6.4 (6.3-8.2) g/dL Albumin 4.1 3.1 L (3.5-5.1) g/dL Calcium panel 11/13/24 11/14/24 Range/Units 14:21 06:05 Calcium 9.6 8.9 (8.4-10.2) mg/dL Phosphorus 6.5 H (2.5-4.5) mg/dL Albumin 4.1 3.1 L (3.5-5.1) g/dL Pituitary panel 11/13/24 11/14/24 Range/Units 14:21 06:05 Sodium 140 139 (137-145) mmol/L Potassium 4.4 4.7 (3.4-5.0) mmol/L Chloride 108 H 111 H (98-107) mmol/L Carbon Dioxide 18 L 17 L (22-30) mmol/L BUN 61 H D 60 H (9-20) mg/dL Creatinine 5.43 H 5.46 H (0.7-1.3) mg/dL Glucose 90 101 (65-110) mg/dL Calcium 9.6 8.9 (8.4-10.2) mg/dL Adrenal panel 11/13/24 11/14/24 Range/Units 14:21 06:05 Sodium 140 139 (137-145) mmol/L Potassium 4.4 4.7 (3.4-5.0) mmol/L Chloride 108 H 111 H (98-107) mmol/L Carbon Dioxide 18 L 17 L (22-30) mmol/L BUN 61 H D 60 H (9-20) mg/dL Creatinine 5.43 H 5.46 H (0.7-1.3) mg/dL Glucose 90 101 (65-110) mg/dL Calcium 9.6 8.9 (8.4-10.2) mg/dL Total Bilirubin 0.3 0.2 (0.2-1.3) mg/dL AST 38 32 (17-59) U/L ALT 28 21 (6-50) U/L Alkaline Phosphatase 144 H 128 H (38-126) U/L Total Protein 7.9 6.4 (6.3-8.2) g/dL Albumin 4.1 3.1 L (3.5-5.1) g/dL All other labs normal.
--- NOTE | 2024-11-14 13:29 | P.CONUR_ITS ---
Assessment and Plan Assessment and plan (1) Acute renal failure: Qualifiers: Acute renal failure type: unspecified Qualified Code(s): N17.9 - Acute kidney failure, unspecified Code(s): N17.9 - Acute kidney failure, unspecified Status: Acute (2) Bilateral nephrolithiasis: Code(s): N20.0 - Calculus of kidney Status: Acute (3) Acute urinary retention: Code(s): R33.8 - Other retention of urine Status: Acute (4) Hydroureteronephrosis: Code(s): N13.30 - Unspecified hydronephrosis Status: Acute (5) Benign prostatic hyperplasia: Qualifiers: Lower urinary tract symptom presence: unspecified whether lower urinary tract symptoms present Qualified Code(s): N40.0 - Benign prostatic hyperplasia without lower urinary tract symptoms Code(s): N40.0 - Benign prostatic hyperplasia without lower urinary tract symptoms Status: Acute Plan - Acute renal failure, likely multifactorial secondary to dehydration from poor oral intake, possible obstructive uropathy from urinary retention, and potential sepsis from a non-urologic source given findings concerning for bowel obstruction and cholecystitis. Bilateral non-obstructing nephrolithiasis. Mild left hydroureteronephrosis, likely from vesicoureteral reflux secondary to high bladder pressures from acute urinary retention. The patient's lethargy is likely a component of uremic encephalopathy. - Agree with nephrology and general surgery consultations. - Recommend indwelling Huddleston catheter to decompress the bladder and will be monitored for input and output. - Recommend continued IV hydration. - No acute urologic surgical intervention is planned at this time. The patient's more pressing issues appear to be related to his bowel and gallbladder. - Plan for outpatient urology follow-up for elective management of his renal stones once his acute medical issues have stabilized. - Continue home tamsulosin. - Counseled nursing staff on proper catheter care to prevent traction and potential bleeding. Case discussed with Dr. Mina and bedside senior software quality engineer Consult Note HPI Date Seen: 11/14/24 Requesting Physician: Juan Diego Castro MD Primary Care Provider: PERSONAL BANKING ADVISOR PHYSICIAN Consult Narrative Reason for consult: Retention, and bilateral renal stones, mild left hydro Narrative: Brent Higginbotham is a 69-year-old male with a history of CVA, CAD, BPH, COPD, JAMES, DM type 2, and HTN who was admitted on 11/13/2024 from his custodial for worsening generalized weakness, poor oral intake, and hypoglycemic events over the past week. Upon admission, he was found to have acute renal failure, hypotension, and was noted to be very lethargic and somnolent. Urology was consulted for evaluation of moderate bladder distention, acute urinary retention, and bilateral nonobstructing renal stones with mild left hydroureteronephrosis. His home medications include ASA and tamsulosin. He is currently receiving IV ceftriaxone and Flagyl. He denies pain but is too lethargic to provide a detailed history. No family present. No documented history of renal stones in custodial records. A&Ox3-4 at baseline. -PERTINENT LABS: 11/14/2024 - WBC 10.6, HGB 10.7, Cr 5.46, GFR 10. Urinalysis: Trace LE, Nitrate negative, 2+ blood Microscopy: Negative RBCs, 6-10 WBCs Urine culture pending. 11/13/2024 - WBC 10.4, HGB 12.3, Cr 5.43, GFR 11. Blood cultures NGTD. -PERTINENT IMAGIN11/14/2024 CT chest abdomen pelvis wo con ([facility]) - Bilateral renal calculi, including a 13 mm calcification in the left renal pelvis and a staghorn calculus in the right kidney. Mild left-sided hydroureteronephrosis without an obstructing stone. Findings suggestive of partial distal bowel obstruction and significant gallbladder distention with trace surrounding inflammatory change. Asymmetric mural thickening of the bladder base noted. 11/13/2024 US renal BI ([facility]) - Moderately distended urinary bladder. No hydronephrosis or renal calculus identified. Kidneys appeared grossly normal, though visualization was suboptimal. Review of Systems 2 Review of Systems: ROS unobtainable: Yes unobtainable due to mental status PMFSH Past Medical History Medical History (Updated 11/14/24 @ 14:03 by Demetra Eckert APRN) Coronary artery disease Benign prostatic hyperplasia Tobacco abuse Chronic obstructive pulmonary disease Obstructive sleep apnea Intolerant of CPAP Hypertension Type 2 diabetes mellitus Cerebrovascular accident Surgical History Surgical History History of coronary artery stent placement History of cardiac catheterization History of partial colectomy Family History Family History Other Family history non-contributory Social History Social History Social History: Surrogate medical decision maker: Clarita Hobbs, mother. Code status: Full code. Smoking packs per day: 1 Smoking cigarettes per day: 20.0 Years smoked: 50 Smoking pack-years: 50.00 Smoking status: Current every day smoker Tobacco type: cigarettes Alcohol intake: former Substance use: never Do You Feel Safe in your Home?: Yes Lack of Transportation: No Lack of Food: Never True Current Housing: I Have Housing Concerned About Future Housing: No Difficulty Paying Gas/Electric Bills: No Difficulty Paying for Meds: No Currently Unemployed: No Education: High School Diploma/GED Difficulty w/ Childcare or Family Care: No Additional living arrangements comments: Resident at [facility]. 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 Spiritual care concerns: No Meds Home Medications and Allergies Home Medications ?Medication ?Instructions ?Recorded ?Confirmed ?Type acetaminophen 325 mg tablet 650 mg PO Q8H PRN Pain, Mild 11/07/23 11/13/24 History albuterol sulfate 90 mcg/actuation 2 puff inhalation Q4H PRN Wheezing 11/07/23 11/13/24 History aerosol inhaler aspirin 81 mg tablet,delayed 81 mg PO DAILY 11/07/23 11/13/24 History release cabergoline 0.5 mg tablet 0.5 mg PO 2XW 11/07/23 11/13/24 History carboxymethylcellulose sodium 0.5 1 drp EACH EYE QID PRN Dry Eyes 11/07/23 11/13/24 History % eye drops in a dropperette (Refresh Plus) carvedilol 3.125 mg tablet 3.125 mg PO BID 11/07/23 11/13/24 History dextromethorphan-guaifenesin 10 10 ml PO Q4-6H PRN Cough 11/07/23 11/13/24 History mg-100 mg/5 mL oral syrup escitalopram oxalate 20 mg tablet 15 mg PO QAM 11/07/23 11/13/24 History gabapentin 100 mg capsule 100 mg PO TID 11/07/23 11/13/24 History glipizide 5 mg tablet 5 mg PO QAM 11/07/23 11/13/24 History loperamide 2 mg capsule 2 mg PO Q6H PRN Diarrhea 11/07/23 11/13/24 History (Anti-Diarrheal (loperamide)) melatonin 5 mg tablet 5 mg PO HS 11/07/23 11/13/24 History ondansetron 4 mg disintegrating 4 mg PO Q4H PRN Nausea And Vomiting 11/07/23 11/13/24 History tablet rosuvastatin 40 mg tablet 40 mg PO QHS 11/07/23 11/13/24 History sennosides 8.6 mg tablet (Senokot) 8.6 mg PO PRN PRN Constipation 11/07/23 11/13/24 History tamsulosin 0.4 mg capsule 0.4 mg PO QAM 11/07/23 11/13/24 History tiotropium bromide 2.5 2 puff inhalation QAM 11/07/23 11/13/24 History mcg/actuation mist for inhalation (Spiriva Respimat) benzonatate 100 mg capsule 100 mg PO TID PRN cough 05/16/24 11/13/24 History brinzolamide 1 %-brimonidine 0.2 % 1 drp EACH EYE TID 05/18/24 11/13/24 History eye drops,suspension (Simbrinza) budesonide 160 mcg-glycopyr 9 2 inh inhalation BID 05/18/24 11/13/24 History mcg-formot 4.8 mcg/actuation HFA inhaler (Breztri Aerosphere) oxycodone 5 mg tablet 5 mg PO QHS pain 05/18/24 11/13/24 History insulin aspart U-100 100 unit/mL 1 sliding scale dose subcut 05/20/24 11/13/24 Rx (3 mL) subcutaneous pen (Novolog USEASDIRECTD #15 mL FlexPen U-100 Insulin aspart) insulin glargine 100 unit/mL 15 unit (0.15 mL) subcut HS 15 05/20/24 11/13/24 Rx subcutaneous solution (Lantus days #2.25 mL U-100 Insulin) cholestyramine 4 gram oral powder 4 g PO TID 11/13/24 11/13/24 History lidocaine 5 % topical patch 1 patch topical DAILY back pain 11/13/24 11/13/24 History psyllium husk 0.4 gram capsule 0.4 g PO DAILY PRN constipation 11/13/24 11/13/24 History (Fiber (psyllium husk)) Allergies Allergy/AdvReac Type Severity Reaction Status Date / Time hydralazine AdvReac Vomiting Verified 11/13/24 14:12 lisinopril AdvReac Rash Verified 11/13/24 14:12 metformin AdvReac Diarrhea Verified 11/13/24 14:12 pioglitazone AdvReac Nausea Verified 11/13/24 14:12 simvastatin AdvReac Rash Verified 11/13/24 14:12 Vital Signs Vital Signs - 24 hr 11/13/24 13:31 11/13/24 13:36 11/13/24 13:43 Temperature 97.4 F L Pulse Rate 49 L 53 L 51 L Respiratory Rate 12 18 Blood Pressure 107/40 L Pulse Oximetry 94 100 Oxygen Delivery Nasal Cannula Oxygen Flow Rate 4 11/13/24 13:44 11/13/24 14:06 11/13/24 14:09 Temperature Pulse Rate 52 L 49 L Respiratory Rate 16 20 Blood Pressure 108/49 L Pulse Oximetry 94 95 Oxygen Delivery Nasal Cannula Oxygen Flow Rate 4 11/13/24 14:30 11/13/24 14:31 11/13/24 14:32 Temperature Pulse Rate 47 L Respiratory Rate 13 13 19 Blood Pressure 95/56 L Pulse Oximetry 99 99 95 Oxygen Delivery Oxygen Flow Rate 11/13/24 14:46 11/13/24 14:53 11/13/24 14:59 Temperature Pulse Rate 48 L Respiratory Rate 15 18 12 Blood Pressure 86/53 L 84/47 L 77/53 L Pulse Oximetry Oxygen Delivery Oxygen Flow Rate 11/13/24 15:01 11/13/24 15:18 11/13/24 15:30 Temperature Pulse Rate 45 L 50 L Respiratory Rate 22 H 16 17 Blood Pressure 79/42 L 93/69 L Pulse Oximetry 88 L 94 Oxygen Delivery Oxygen Flow Rate 11/13/24 15:45 11/13/24 16:13 11/13/24 16:18 Temperature Pulse Rate 51 L 52 L 51 L Respiratory Rate 14 14 14 Blood Pressure Pulse Oximetry 95 96 97 Oxygen Delivery Oxygen Flow Rate 11/13/24 17:06 11/13/24 17:11 11/13/24 17:16 Temperature Pulse Rate 52 L 50 L 50 L Respiratory Rate 20 18 23 H Blood Pressure 93/67 L 89/79 L Pulse Oximetry 99 94 96 Oxygen Delivery Oxygen Flow Rate 11/13/24 17:31 11/13/24 18:01 11/13/24 18:02 Temperature Pulse Rate 48 L 52 L 53 L Respiratory Rate 15 15 14 Blood Pressure 129/59 L 121/70 Pulse Oximetry 96 94 95 Oxygen Delivery Oxygen Flow Rate 11/13/24 18:15 11/13/24 18:34 11/13/24 18:46 Temperature Pulse Rate 49 L 51 L Respiratory Rate 11 L 20 16 Blood Pressure 98/63 L Pulse Oximetry 96 96 94 Oxygen Delivery Oxygen Flow Rate 11/13/24 19:45 11/13/24 20:00 11/13/24 20:43 Temperature 98.4 F Pulse Rate 55 L 56 L Respiratory Rate 20 Blood Pressure 111/43 L Pulse Oximetry 97 97 Oxygen Delivery Nasal Cannula Oxygen Flow Rate 4 11/13/24 22:00 11/14/24 00:00 11/14/24 00:00 Temperature 98.7 F Pulse Rate 52 L 54 L Respiratory Rate 20 Blood Pressure 128/48 L Pulse Oximetry 98 98 Oxygen Delivery Nasal Cannula Oxygen Flow Rate 4 11/14/24 00:00 11/14/24 02:00 11/14/24 03:50 Temperature 97.8 F Pulse Rate 54 L 57 L 56 L Respiratory Rate 20 Blood Pressure 125/48 L Pulse Oximetry 96 Oxygen Delivery Oxygen Flow Rate 11/14/24 04:00 11/14/24 04:00 11/14/24 06:00 Temperature Pulse Rate 61 60 Respiratory Rate Blood Pressure Pulse Oximetry 96 Oxygen Delivery Nasal Cannula Oxygen Flow Rate 4 11/14/24 07:58 11/14/24 08:00 11/14/24 08:00 Temperature 98.4 F Pulse Rate 53 L 52 L Respiratory Rate 21 H Blood Pressure 103/37 L Pulse Oximetry 99 98 Oxygen Delivery Nasal Cannula Oxygen Flow Rate 4 11/14/24 08:00 11/14/24 08:16 11/14/24 08:50 Temperature Pulse Rate Respiratory Rate Blood Pressure 102/39 L Pulse Oximetry 99 99 Oxygen Delivery Nasal Cannula Nasal Cannula Oxygen Flow Rate 4 3 11/14/24 10:00 11/14/24 11:42 Temperature 97.5 F L Pulse Rate 54 L 54 L Respiratory Rate 20 Blood Pressure 107/37 L Pulse Oximetry 98 Oxygen Delivery Oxygen Flow Rate Exam 2 Const: General: comfortable Resp: Effort & Inspection: normal respiratory effort Results Labs 11/14/24 06:05 11/14/24 06:05 Labs: Short CBC 11/13/24 11/14/24 Range/Units 14:21 06:05 WBC 10.4 H 10.6 H (4.5-10.0) K/mm3 Hgb 12.3 L 10.7 L (14.0-18.0) g/dL Hct 38.5 L 34.0 L (42.0-52.0) % Plt Count 219 197 (150-375) k/mm3 BMP 11/13/24 11/14/24 14:21 06:05 Sodium 140 139 Potassium 4.4 4.7 Chloride 108 H 111 H Carbon Dioxide 18 L 17 L BUN 61 H D 60 H Creatinine 5.43 H 5.46 H Glucose 90 101 Calcium 9.6 8.9 Cardiac Enzymes 11/13/24 Range/Units 14:21 Total Creatine Kinase 444 H (55-170) U/L Liver Function 11/13/24 11/14/24 Range/Units 14:21 06:05 Total Bilirubin 0.3 0.2 (0.2-1.3) mg/dL AST 38 32 (17-59) U/L ALT 28 21 (6-50) U/L Alkaline Phosphatase 144 H 128 H (38-126) U/L Albumin 4.1 3.1 L (3.5-5.1) g/dL Urine 11/14/24 Range/Units 04:07 Urine Color Yellow (Yellow) Urine Appearance Clear (Clear) Urine pH 5.0 (5.0-9.0) Ur Specific [place] 1.014 (1.001-1.035) Urine Protein 1+ H (Negative) mg/dL Urine Glucose (UA) Negative (Negative) mg/dL
--- NOTE | 2024-11-14 13:44 | PCSTNOTE ---
Please refer to the Bedside Swallow Evaluation in the EMR. Please note, silent aspiration cannot be ruled out at bedside.
[2024-11-14 14:44] LABS: Urea Random Urine 394 MG/DL
[2024-11-14 15:01] LABS: Urine Eos QC 2nd Tech Confirmed
--- NOTE | 2024-11-14 16:00 | P.PNIM_ITS ---
Progress Note: A&P Assessment and Plan (1) Acute renal failure: Qualifiers: Acute renal failure type: unspecified Qualified Code(s): N17.9 - Acute kidney failure, unspecified Code(s): N17.9 - Acute kidney failure, unspecified Status: Acute Assessment and Plan: - creatinine 5.43, BUN 61, GFR 11 - baseline: 1.1-1.3 - renal ultrasound unremarkable Cr 5.46 today contieu IVF and [place] catheter nephrology and urology following (2) Hypotension: Qualifiers: Hypotension type: hypotension due to hypovolemia Qualified Code(s): E86.1 - Hypovolemia Code(s): I95.9 - Hypotension, unspecified Status: Resolved Assessment and Plan: patient was hypotensive on presentation r/o infection HIDA pending Contine Rocephin and Flagyl monitor cultures (3) Type 2 diabetes mellitus: Qualifiers: 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 Diabetes mellitus complication status: with hypoglycemia Diabetes mellitus complication detail: without coma Qualified Code(s): E11.649 - Type 2 diabetes mellitus with hypoglycemia without coma; 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 Code(s): E11.9 - Type 2 diabetes mellitus without complications Status: Chronic Assessment and Plan: NPO CCI with accucheks and adjust with clinical course (4) Hypertension: Qualifiers: Hypertension type: primary hypertension Qualified Code(s): I10 - Essential (primary) hypertension Code(s): I10 - Essential (primary) hypertension Status: Chronic Assessment and Plan: titrate home meds with clinical course Plan Partial SBO CT AP reviewed NPO, IVF, consider NG tube if vomiting Gen surgery following monitor Gall bladder distension Rule out Acute cholecystitis CT AP reviewed HIDA scan ordered continue Rocephin and Metronidazole Blood culture Diet: heart healthy DVT Prophylaxis: Sq Heparin Code Status: DNR Subjective Date/time seen: 11/14/24 16:00 Interval history: Somnolent at bedside and had to awaken Review of Systems Review of Systems: All systems reviewed & are unremarkable except as noted in HPI and below Exam Const: General: comfortable and no acute distress Other: , male, chronically ill-appearing HENMT: Face/Nose/Sinus: Normal nares present Mouth: Yes dry mucous membranes Eyes: General: appearance normal, both eyes and all related structures Sclera: sclerae normal Pupils: Equal, round and reactive pupils present EOM: EOMs intact bilaterally Resp: Effort & Inspection: normal respiratory effort Auscultation: clear to auscultation bilaterally Cardio: Rate: regular rate Rhythm: regular rhythm Other: S1-S2 present without murmur, rub, ectopy GI: Other: Abdomen soft, nondistended, nontender. quiet but normoactive bowel sounds in all quadrants. Skin: General skin exam: normal color Other: skin tear to the left upper extremity, Steri-Stripped. No active bleeding. Various areas of ecchymosis to bilateral upper extremities, no particular pattern. In various stages of healing. Neuro: Cranial nerves: Yes Equal, round and reactive pupils present Speech: normal speech Motor exam (neuro): 5/5 motor strength present throughout Sensory Exam: normal sensation Other: A&O x3 Extrem: General: normal to inspection Psych: Mental Status: mental status grossly normal Affect: normal affect Other: fair insight and judgment. Objective Data Vital Signs Vital Signs: Vital Signs - 24 hr 11/13/24 16:13 11/13/24 16:18 11/13/24 17:06 Temperature Pulse Rate 52 L 51 L 52 L Respiratory Rate 14 14 20 Blood Pressure 93/67 L Pulse Oximetry 96 97 99 Oxygen Delivery Oxygen Flow Rate 11/13/24 17:11 11/13/24 17:16 11/13/24 17:31 Temperature Pulse Rate 50 L 50 L 48 L Respiratory Rate 18 23 H 15 Blood Pressure 89/79 L 129/59 L Pulse Oximetry 94 96 96 Oxygen Delivery Oxygen Flow Rate 11/13/24 18:01 11/13/24 18:02 11/13/24 18:15 Temperature Pulse Rate 52 L 53 L 49 L Respiratory Rate 15 14 11 L Blood Pressure 121/70 Pulse Oximetry 94 95 96 Oxygen Delivery Oxygen Flow Rate 11/13/24 18:34 11/13/24 18:46 11/13/24 19:45 Temperature 98.4 F Pulse Rate 51 L 55 L Respiratory Rate 20 16 20 Blood Pressure 98/63 L 111/43 L Pulse Oximetry 96 94 97 Oxygen Delivery Oxygen Flow Rate 11/13/24 20:00 11/13/24 20:43 11/13/24 22:00 Temperature Pulse Rate 56 L 52 L Respiratory Rate Blood Pressure Pulse Oximetry 97 Oxygen Delivery Nasal Cannula Oxygen Flow Rate 4 11/14/24 00:00 11/14/24 00:00 11/14/24 00:00 Temperature 98.7 F Pulse Rate 54 L 54 L Respiratory Rate 20 Blood Pressure 128/48 L Pulse Oximetry 98 98 Oxygen Delivery Nasal Cannula Oxygen Flow Rate 4 11/14/24 02:00 11/14/24 03:50 11/14/24 04:00 Temperature 97.8 F Pulse Rate 57 L 56 L Respiratory Rate 20 Blood Pressure 125/48 L Pulse Oximetry 96 96 Oxygen Delivery Nasal Cannula Oxygen Flow Rate 4 11/14/24 04:00 11/14/24 06:00 11/14/24 07:58 Temperature 98.4 F Pulse Rate 61 60 53 L Respiratory Rate 21 H Blood Pressure 103/37 L Pulse Oximetry 99 Oxygen Delivery Oxygen Flow Rate 11/14/24 08:00 11/14/24 08:00 11/14/24 08:00 Temperature Pulse Rate 52 L Respiratory Rate Blood Pressure Pulse Oximetry 98 99 Oxygen Delivery Nasal Cannula Nasal Cannula Oxygen Flow Rate 4 4 11/14/24 08:16 11/14/24 08:50 11/14/24 10:00 Temperature Pulse Rate 54 L Respiratory Rate Blood Pressure 102/39 L Pulse Oximetry 99 Oxygen Delivery Nasal Cannula Oxygen Flow Rate 3 11/14/24 11:42 11/14/24 12:00 11/14/24 12:00 Temperature 97.5 F L Pulse Rate 54 L 54 L Respiratory Rate 20 Blood Pressure 107/37 L Pulse Oximetry 98 98 Oxygen Delivery Nasal Cannula Oxygen Flow Rate 4 11/14/24 14:00 Temperature Pulse Rate 57 L Respiratory Rate Blood Pressure Pulse Oximetry Oxygen Delivery Oxygen Flow Rate Intake/Output Intake/Output: Intake & Output 11/11/24 11/12/24 11/13/24 11/14/24 23:59 23:59 23:59 23:59 Intake Total 20990 Output Total 400 Balance 2099 1969 Meds/Results Medications: Active Medications Generic Name Dose Route Start Last Admin Trade Name Freq PRN Reason Stop Dose Admin Acetaminophen 650 mg 11/13/24 21:38 Acetaminophen 325 Mg Tablet PO Q8H PRN Pain Rated 1-3 Albuterol 2 puff 11/13/24 21:38 Albuterol Sulfate (*Sp) Aerosol 1 Puff INHALATION Q4H PRN Wheezing Artificial Tears 1 drop 11/13/24 21:58 Artificial Tears Ophth Soln 15 Ml Bottle EACH EYE QID PRN Dry Eye(s) Aspirin 81 mg 11/14/24 09:00 11/14/24 09:40 Aspirin 81 Mg Enteric Tablet PO 81 mg DAILY BERNARDO Administration Benzonatate 100 mg 11/13/24 21:38 Benzonatate 100 Mg Capsule PO TID PRN cough Brimonidine Tartrate 1 drop 11/14/24 06:00 11/14/24 14:58 Brimonidine Tartrate 0.2% Op Soln 5 Ml Btl EACH EYE 1 drop Q8HR BERNARDO Administration Brinzolamide 1 drop 11/14/24 06:00 11/14/24 14:59 Brinzolamide 1% Ophth Susp 10 Ml EACH EYE 1 drop Q8HR BERNARDO Administration Cholestyramine Resin 4 gm 11/14/24 10:00 11/14/24 12:12 Cholestyramine (W/ Sugar) 4 Gm Powd.Pack PO Not Given 1000,1300,1800 BERNARDO Dextrose 12.5 gm 11/13/24 21:30 Dextrose 50% 25 Gm/50 Ml Syringe IV PUSH PRN PRN Hypoglycemia Protocol Escitalopram Oxalate 15 mg 11/14/24 09:00 11/14/24 09:41 Escitalopram Oxalate 5 Mg Tablet PO 15 mg QAM BERNARDO Administration Fluticasone/Umeclidinium/Vilanterol 1 puff 11/14/24 08:00 11/14/24 07:59 Fluticasone/Umeclidin/Vilanter 100-62.5-25 Mcg Ellipta INHALATION Not Given DAILYRT BERNARDO Gabapentin 100 mg 11/14/24 09:00 11/14/24 12:14 Gabapentin 100 Mg Capsule PO Not Given TID BERNARDO Glucagon 1 mg 11/13/24 21:30 Glucagon For Inj 1 Mg Vial IM PRN PRN Hypoglycemia Protocol Glucose 15 gm 11/13/24 21:30 Glucose Oral Gel 15 Gm Of Glucse In 37.5 Gm Tube PO PRN PRN Hypoglycemia Protocol Guaifenesin/Dextromethorphan 10 ml 11/13/24 21:38 Guaifenesin/Dextromethorphan 10 Ml Udc PO Q4-6H PRN Cough Sodium Chloride 1,000 mls @ 125 mls/hr 11/13/24 17:55 11/14/24 15:24 Normal Saline Iv IV CONT 125 mls/hr .Q8H BERNARDO Administration Dextrose 1,000 mls @ 100 mls/hr 11/13/24 21:30 Dextrose 5% 1,000 Ml IVPB PRN PRN Hypoglycemia Protocol Ceftriaxone Sodium 1 gm/ 50 mls @ 100 mls/hr 11/14/24 12:00 11/14/24 12:13 Sodium Chloride IVPB 100 mls/hr Q24H BERNARDO Administration Metronidazole 500 mg in 100 mls @ 100 mls/hr 11/14/24 12:00 11/14/24 12:13 Flagyl 500 Mg/Iso Soln 100 Ml IVPB 100 mls/hr Q8HR BERNARDO Administration Insulin Aspart 3 - 6 units 11/14/24 08:00 11/14/24 12:12 Insulin Aspart (*Bkc) 100 Units/Ml SUB-Q Not Given TIDWM [facility] Protocol Lidocaine 1 patch 11/14/24 09:00 11/14/24 09:54 Lidocaine 5% Patch TOPICAL Not Given DAILY BERNARDO Loperamide HCl 2 mg 11/13/24 21:38 Loperamide Hcl 2 Mg Capsule PO Q6H PRN Diarrhea Melatonin 5 mg 11/13/24 22:00 11/13/24 22:30 Melatonin 5 Mg Tablet PO 5 mg HS [facility] Administration Ondansetron HCl 4 mg 11/13/24 21:38 Ondansetron Hcl Odt 4 Mg Tablet PO Q4H PRN Nausea And Vomiting Oxycodone HCl 5 mg 11/13/24 21:38 Oxycodone Hcl (*Crx) 5 Mg Tab Ir PO QHS PRN Pain Rated 4-6 Psyllium Hydrophilic Mucilloid 1 packet 11/13/24 22:00 Psyllium Sugar Free Powder Packet PO DAILY PRN constipation Rosuvastatin Calcium 40 mg 11/13/24 22:00 11/13/24 22:30 Rosuvastatin 20 Mg Tablet PO 40 mg QHS BERNARDO Administration Senna 8.6 mg 11/13/24 21:38 Sennosides 8.6 Mg Tablet PO DAILY PRN Constipation Tamsulosin HCl 0.4 mg 11/14/24 09:00 11/14/24 09:40 Tamsulosin Hcl 0.4 Mg Capsule PO 0.4 mg QAM BERNARDO Administration Radiology Results: ITS Impressions Chest X-Ray 11/13/24 15:04 IMPRESSION: No focal consolidation. Mild perihilar bronchial wall thickening, findings suggestive of respiratory bronchiolitis. Chest/Abdomen/Pelvis CT 11/14/24 09:27 IMPRESSION: Bilateral renal calculi. Asymmetric mural thickening of the base of the bladder for which direct visualization is recommended. Findings which may represent partial distal bowel obstruction with significant air distention of the colon just before the anastomotic staple line and distal decompression. Significant gallbladder distention with trace surrounding inflammatory change. Bibasilar atelectasis. Renal Ultrasound 11/14/24 11:43 Impression: No definite abnormality seen. Visualization of the kidneys is somewhat suboptimal related to patient body habitus. Labs Labs: Laboratory Results - last 24 hr 11/13/24 11/13/24 11/13/24 14:21 20:21 23:59 WBC RBC Hgb Hct MCV MCH MCHC RDW Plt Count MPV Immature Gran % (Auto) Neut % (Auto) Lymph % (Auto) [place] % (Auto) Eos % (Auto) Baso % (Auto) Lymph # (Auto) [place] # (Auto) Eos # (Auto) Baso # (Auto) Abs Immat Gran (auto) Absolute Neuts (auto) Absolute Nucleated RBC Nucleated RBC % Sodium Potassium Chloride Carbon Dioxide Anion Gap BUN Creatinine Estim Creat Clear Calc Estimated GFR Glucose POC Capillary Glucose 76 77 Hemoglobin A1c Lactic Acid Calcium Phosphorus Magnesium Total Bilirubin AST ALT Alkaline Phosphatase Total Creatine Kinase 444 H Total Protein Albumin Urine Color Urine Appearance Urine pH Ur Specific [place] Urine Protein Urine Glucose (UA) Urine Ketones Ur Blood (Man) Urine Nitrate Urine Bilirubin Urine Urobilinogen Leukocyte Esterase Rfl Urine RBC Urine WBC Ur Squamous Epith Cells Urine Bacteria Urine Casts Urine Eosinophils U Random Total Protein Ur Random Sodium Ur Random Potassium Ur Random Urea Urine Creatinine Protein/Creat Ratio 2 11/14/24 11/14/24 11/14/24 04:07 04:07 06:05 WBC 10.6 H RBC 3.80 L Hgb 10.7 L Hct 34.0 L MCV 89.5 MCH 28.2 MCHC 31.5 L RDW 15.4 H Plt Count 197 MPV 8.7 Immature Gran % (Auto) 1.4 H Neut % (Auto) 77.6 H Lymph % (Auto) 10.3 L [place] % (Auto) 7.8 Eos % (Auto) 2.5 Baso % (Auto) 0.4 Lymph # (Auto) 1.09 [place] # (Auto) 0.8 H Eos # (Auto) 0.3 Baso # (Auto) 0.0 Abs Immat Gran (auto) 0.15 H Absolute Neuts (auto) 8.2 H Absolute Nucleated RBC 0.000 Nucleated RBC % 0.0 Sodium 139 Potassium 4.7 Chloride 111 H Carbon Dioxide 17 L Anion Gap 11 BUN 60 H Creatinine 5.46 H Estim Creat Clear Calc 15 Estimated GFR 10 L Glucose 101 POC Capillary Glucose Hemoglobin A1c 6.1 H Lactic Acid Calcium 8.9 Phosphorus 6.5 H Magnesium 1.9 Total Bilirubin 0.2 AST 32 ALT 21 Alkaline Phosphatase 128 H Total Creatine Kinase Total Protein 6.4 Albumin 3.1 L Urine Color Yellow Urine Appearance Clear Urine pH 5.0 Ur Specific [place] 1.014 Urine Protein 1+ H Urine Glucose (UA) Negative Urine Ketones Negative Ur Blood (Man) 2+ H Urine Nitrate Negative Urine Bilirubin Negative Urine Urobilinogen 0.2 Leukocyte Esterase Rfl Trace H Urine RBC 0-2 Urine WBC 6-10 H Ur Squamous Epith Cells Occasional Urine Bacteria None seen Urine Casts 3-5 Urine Eosinophils U Random Total Protein 50 Ur Random Sodium Ur Random Potassium 19.4 Ur Random Urea Urine Creatinine 137.7 140.6 Protein/Creat Ratio 2 0.36 H 11/14/24 11/14/24 11/14/24 07:44 10:44 11:05 WBC RBC Hgb Hct MCV MCH MCHC RDW Plt Count MPV Immature Gran % (Auto) Neut % (Auto) Lymph % (Auto) [place] % (Auto) Eos % (Auto) Baso % (Auto) Lymph # (Auto) [place] # (Auto) Eos # (Auto) Baso # (Auto) Abs Immat Gran (auto) Absolute Neuts (auto) Absolute Nucleated RBC Nucleated RBC % Sodium Potassium Chloride Carbon Dioxide Anion Gap BUN Creatinine Estim Creat Clear Calc Estimated GFR Glucose POC Capillary Glucose 87 123 H Hemoglobin A1c Lactic Acid 0.6 L Calcium Phosphorus Magnesium Total Bilirubin AST ALT Alkaline Phosphatase Total Creatine Kinase Total Protein Albumin Urine Color Urine Appearance Urine pH Ur Specific [place] Urine Protein Urine Glucose (UA) Urine Ketones Ur Blood (Man) Urine Nitrate Urine Bilirubin Urine Urobilinogen Leukocyte Esterase Rfl Urine RBC Urine WBC Ur Squamous Epith Cells Urine Bacteria Urine Casts Urine Eosinophils U Random Total Protein Ur Random Sodium Ur Random Potassium Ur Random Urea Urine Creatinine Protein/Creat Ratio 2 11/14/24 14:25 WBC RBC Hgb Hct MCV MCH MCHC RDW Plt Count MPV Immature Gran % (Auto) Neut % (Auto) Lymph % (Auto) [place] % (Auto) Eos % (Auto) Baso % (Auto) Lymph # (Auto) [place] # (Auto) Eos # (Auto) Baso # (Auto) Abs Immat Gran (auto) Absolute Neuts (auto) Absolute Nucleated RBC Nucleated RBC % Sodium Potassium Chloride Carbon Dioxide Anion Gap BUN Creatinine Estim Creat Clear Calc Estimated GFR Glucose POC Capillary Glucose Hemoglobin A1c Lactic Acid Calcium Phosphorus Magnesium Total Bilirubin AST ALT Alkaline Phosphatase Total Creatine Kinase Total Protein Albumin Urine Color Urine Appearance Urine pH Ur Specific [place] Urine Protein Urine Glucose (UA) Urine Ketones Ur Blood (Man) Urine Nitrate Urine Bilirubin Urine Urobilinogen Leukocyte Esterase Rfl Urine RBC Urine WBC Ur Squamous Epith Cells Urine Bacteria Urine Casts Urine Eosinophils Rare U Random Total Protein Ur Random Sodium 21 Ur Random Potassium Ur Random Urea 394 Urine Creatinine 113.3 Protein/Creat Ratio 2 Quality VTE Prophylaxis VTE prophylaxis: mechanical ordered
[2024-11-15] VITALS (20 sets, daily range): BP systolic 119–155; BP diastolic 35–46; PULSE 54–108; RESP 20–24; TEMP 36.4–37.2; O2SAT 93–100
[2024-11-15] MEDS: SODIUM CHLORIDE 0.9% IV 1,000 ML 75 ML IV CONT ×2 (01:12→22:01)
[2024-11-15 04:58] LABS: Hematocrit 32.5 % (42.0-52.0); Hemoglobin 10.2 g/dL (14.0-18.0); Immature Granulocyte Percent A 1.8 % (0-0.5); Lymphocytes Absolute Auto 0.81 K/mm3 (0.9-3.2); Mean Corpuscular HGB Conc 31.4 g/dl (32-36); Mean Corpuscular Hemoglobin 27.9 pg (26-34); Mean Corpuscular Volume 89.0 fl (80-100); Nucleated Red Blood Cells Absolute Auto 0.000 K/mm3 (0.0-0.012); Nucleated Red Blood Cells Perc 0.0 % (0.0-0.2); Platelet Count Result 186 k/mm3 (150-375); Red Blood Count 3.65 M/mm3 (4.6-6.20); White Blood Count 9.9 K/mm3 (4.5-10.0)
[2024-11-15] MEDS: metroNIDAZOLE 500 MG/ISO 100ML 500 MG/100 ML BAG 100 MG IVPB ×3 (05:00→22:00)
[2024-11-15] MEDS: BRIMONIDINE TARTRATE 0.2% OP SOLN 5 ML BTL 1 DROP EACH EYE ×3 (05:01→22:00)
[2024-11-15] MEDS: BRINZOLAMIDE 1% OPHTH SUSP 10 ML 1 DROP EACH EYE ×3 (05:01→22:00)
[2024-11-15 05:07] LABS: Alanine Aminotransferase 17 U/L (6-50); Albumin Level 3.0 g/dL (3.5-5.1); Alkaline Phosphatase 118 U/L (38-126); Anion Gap 12 mmol/L (4-12); Aspartate Amino Transferase 25 U/L (17-59); Bilirubin,Total 0.2 mg/dL (0.2-1.3); Blood Urea Nitrogen 61 mg/dL (9-20); Calcium 8.7 mg/dL (8.4-10.2); Carbon Dioxide 14 mmol/L (22-30); Chloride 112 mmol/L (98-107); Estimated CRCL calculation 13 ml/min; Estimated Glomerular Filt Rate 9; Glucose 101 mg/dL (65-110); Magnesium 1.9 mg/dL (1.6-2.3); Potassium 4.6 mmol/L (3.4-5.0); Sodium 138 mmol/L (137-145); Total Protein 6.1 g/dL (6.3-8.2)
[2024-11-15] MEDS: FLUTICASONE/UMECLIDIN/VILANTER 100-62.5-25 MCG ELLIPTA 1 PUFF INHALATION (07:35)
--- NOTE | 2024-11-15 07:48 | PCRCNOTE ---
Pt is unable to actuate the MDI at this time. RN notified.
--- NOTE | 2024-11-15 10:32 | PM.PNGS ---
Progress Note: A&P Assessment and Plan (1) Dilated gallbladder: Code(s): K82.8 - Other specified diseases of gallbladder Status: Acute Assessment and Plan: Repeat CT scan today demonstrated prominent dilation of the gallbladder to 6.5 cm but without evident wall thickening or pericholecystic infiltrate stranding to more specifically suggest acute cholecystitis. RUQ US demonstrated a hydropic and fluid-filled gallbladder. No wall thickening or pericholecystic fluid. Dependent stones are suspected. Liver enzymes normal. No BM, but this could be d/t patient's lack of appetite and NPO status. Not a great surgical candidate d/t comorbidities. Consider HIDA scan vs cholecystostomy tube. Will discuss with surgeon. (2) SBO (small bowel obstruction): Code(s): K56.609 - Unspecified intestinal obstruction, unspecified as to partial versus complete obstruction Status: Acute Assessment and Plan: Repeat CT today demonstrated likely intermittent/partial small bowel obstruction secondary to a volvulus with at least 360 degrees twist of the distalmost small bowel immediately proximal to ileocolic anastomosis with no interval change in mild dilation of a few loops of more proximal small bowel. Mildly distended abdomen and diffuse abdominal tenderness. No bowel movement, but this could be partially due to lack of appetite and NPO status. No nausea/vomiting. Continue bowel rest. Consider contrast enema at some point to assess for anastomotic stricture. Could consider NG tube placement if patient develops nausea and vomiting. Will discuss with surgeon. 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 Renal ultrasound did not demonstrate any definite abnormality. (7) Chronic obstructive pulmonary disease: Code(s): J44.9 - Chronic obstructive pulmonary disease, unspecified Status: Acute (8) Obstructive sleep apnea: Code(s): G47.33 - Obstructive sleep apnea (adult) (pediatric) Status: Acute Plan Discussed patient's case and plan of care with Dr. Daniel. Subjective Subjective Date/Time Seen: 11/15/24 10:32 Patient reports: no bowel movement Interval history: No acute events overnight. VSS. WBC normalized to 9.9. Liver enzymes normal. Patient's altered mental status unchanged from yesterday, likely from BRYCE. BUN 61 and Cr 6.29 today. Still no BM. CT abd/pelvi today showed prominent dilation of the gallbladder to 6.5 cm but without evident wall thickening or pericholecystic infiltrate stranding to more specifically suggest acute cholecystitis.Likely intermittent/partial small bowel obstruction secondary to a volvulus with at least 360 degrees twist of the distalmost small bowel immediately proximal to ileocolic anastomosis with no interval change in mild dilation of a few loops of more proximal small bowel. RUQ US demonstrated hydropic, fluid-filled gallbladder with dependent stones suspected. Exam GI: Inspection: distended, obesity and scar (midline extraction scar, likely from previous colon resection) Auscultation: abnormal bowel sounds (hypoactive) Rectal Exam: deferred Other: Diffusely tender to mid-abdomen and RUQ. Objective Data Vital Signs Vital Signs: Vital Signs - 24 hr 11/14/24 11:42 11/14/24 12:00 11/14/24 12:00 Temperature 97.5 F L Pulse Rate 54 L 54 L Respiratory Rate 20 Blood Pressure 107/37 L Pulse Oximetry 98 98 Oxygen Delivery Nasal Cannula Oxygen Flow Rate 4 11/14/24 14:00 11/14/24 16:00 11/14/24 16:00 Temperature Pulse Rate 57 L 53 L Respiratory Rate Blood Pressure Pulse Oximetry 96 Oxygen Delivery Nasal Cannula Oxygen Flow Rate 3 11/14/24 16:12 11/14/24 18:00 11/14/24 19:41 Temperature 98.3 F 98.2 F Pulse Rate 53 L 58 L 60 Respiratory Rate 22 H 21 H Blood Pressure 105/30 L 129/48 L Pulse Oximetry 96 100 Oxygen Delivery Oxygen Flow Rate 11/14/24 20:00 11/14/24 20:00 11/14/24 22:00 Temperature Pulse Rate 55 L 53 L Respiratory Rate Blood Pressure Pulse Oximetry 100 Oxygen Delivery Nasal Cannula Oxygen Flow Rate 3 11/14/24 23:33 11/15/24 00:00 11/15/24 00:00 Temperature 98.1 F Pulse Rate 52 L 55 L Respiratory Rate 22 H Blood Pressure 118/48 L Pulse Oximetry 96 100 Oxygen Delivery Nasal Cannula Oxygen Flow Rate 3 11/15/24 02:00 11/15/24 03:25 11/15/24 04:00 Temperature 98.9 F Pulse Rate 54 L 55 L Respiratory Rate 22 H Blood Pressure 122/46 L Pulse Oximetry 100 100 Oxygen Delivery Nasal Cannula Oxygen Flow Rate 3 11/15/24 04:00 11/15/24 06:00 11/15/24 07:48 Temperature Pulse Rate 61 59 L Respiratory Rate Blood Pressure Pulse Oximetry 100 Oxygen Delivery Nasal Cannula Oxygen Flow Rate 3 11/15/24 08:07 Temperature 97.5 F L Pulse Rate 60 Respiratory Rate 22 H Blood Pressure 119/42 L Pulse Oximetry 98 Oxygen Delivery Oxygen Flow Rate Intake/Output Intake/Output: Intake & Output 11/12/24 11/13/24 11/14/24 11/15/24 23:59 23:59 23:59 23:59 Intake Total 2100 3415.8 154.2 Output Total 700 200 Balance 2100 2715.8 -45.8 Meds/Results Medications: Active Medications Generic Name Dose Route Start Last Admin Trade Name Freq PRN Reason Stop Dose Admin Acetaminophen 650 mg 11/13/24 21:38 Acetaminophen 325 Mg Tablet PO Q8H PRN Pain Rated 1-3 Albuterol 2 puff 11/13/24 21:38 Albuterol Sulfate (*Sp) Aerosol 1 Puff INHALATION Q4H PRN Wheezing Artificial Tears 1 drop 11/13/24 21:58 Artificial Tears Ophth Soln 15 Ml Bottle EACH EYE QID PRN Dry Eye(s) Aspirin 81 mg 11/14/24 09:00 11/15/24 09:43 Aspirin 81 Mg Enteric Tablet PO Not Given DAILY [facility] Benzonatate 100 mg 11/13/24 21:38 Benzonatate 100 Mg Capsule PO TID PRN cough Brimonidine Tartrate 1 drop 11/14/24 06:00 11/15/24 05:01 Brimonidine Tartrate 0.2% Op Soln 5 Ml Btl EACH EYE 1 drop Q8HR [facility] Administration Brinzolamide 1 drop 11/14/24 06:00 11/15/24 05:01 Brinzolamide 1% Ophth Susp 10 Ml EACH EYE 1 drop Q8HR [facility] Administration Cholestyramine Resin 4 gm 11/14/24 10:00 11/15/24 09:43 Cholestyramine (W/ Sugar) 4 Gm Powd.Pack PO Not Given 1000,1300,1800 [facility] Dextrose 12.5 gm 11/13/24 21:30 Dextrose 50% 25 Gm/50 Ml Syringe IV PUSH PRN PRN Hypoglycemia Protocol Escitalopram Oxalate 15 mg 11/14/24 09:00 11/15/24 09:43 Escitalopram Oxalate 5 Mg Tablet PO Not Given QAM [facility] Fluticasone/Umeclidinium/Vilanterol 1 puff 11/14/24 08:00 11/15/24 07:35 Fluticasone/Umeclidin/Vilanter 100-62.5-25 Mcg Ellipta INHALATION 1 puff DAILYRT [facility] Administration Gabapentin 100 mg 11/14/24 09:00 11/15/24 09:43 Gabapentin 100 Mg Capsule PO Not Given TID [facility] Glucagon 1 mg 11/13/24 21:30 Glucagon For Inj 1 Mg Vial IM PRN PRN Hypoglycemia Protocol Glucose 15 gm 11/13/24 21:30 Glucose Oral Gel 15 Gm Of Glucse In 37.5 Gm Tube PO PRN PRN Hypoglycemia Protocol Guaifenesin/Dextromethorphan 10 ml 11/13/24 21:38 Guaifenesin/Dextromethorphan 10 Ml Udc PO Q4-6H PRN Cough Heparin Sodium (Porcine) 5,000 units 11/14/24 22:00 11/15/24 05:00 Heparin Sodium 5,000 Units/Ml Vial SUB-Q 5,000 units Q8HR [facility] Administration Sodium Chloride 1,000 mls @ 75 mls/hr 11/13/24 17:55 11/15/24 01:12 Normal Saline Iv IV CONT 75 mls/hr .[id number] [facility] Administration Dextrose 1,000 mls @ 100 mls/hr 11/13/24 21:30 Dextrose 5% 1,000 Ml IVPB PRN PRN Hypoglycemia Protocol Ceftriaxone Sodium 1 gm/ 50 mls @ 100 mls/hr 11/14/24 12:00 11/14/24 12:13 Sodium Chloride IVPB 100 mls/hr Q24H [facility] Administration Metronidazole 500 mg in 100 mls @ 100 mls/hr 11/14/24 12:00 11/15/24 05:00 Flagyl 500 Mg/Iso Soln 100 Ml IVPB 100 mls/hr Q8HR [facility] Administration Insulin Aspart 3 - 6 units 11/14/24 08:00 11/15/24 08:30 Insulin Aspart (*Bkc) 100 Units/Ml SUB-Q Not Given TIDWM [facility] Protocol Lidocaine 1 patch 11/14/24 09:00 11/15/24 09:43 Lidocaine 5% Patch TOPICAL Not Given DAILY [facility] Loperamide HCl 2 mg 11/13/24 21:38 Loperamide Hcl 2 Mg Capsule PO Q6H PRN Diarrhea Melatonin 5 mg 11/13/24 22:00 11/14/24 20:45 Melatonin 5 Mg Tablet PO Not Given [facility] Ondansetron HCl 4 mg 11/13/24 21:38 Ondansetron Hcl Odt 4 Mg Tablet PO Q4H PRN Nausea And Vomiting Oxycodone HCl 5 mg 11/13/24 21:38 Oxycodone Hcl (*Crx) 5 Mg Tab Ir PO QHS PRN Pain Rated 4-6 Psyllium Hydrophilic Mucilloid 1 packet 11/13/24 22:00 Psyllium Sugar Free Powder Packet PO DAILY PRN constipation Rosuvastatin Calcium 40 mg 11/13/24 22:00 11/14/24 20:45 Rosuvastatin 20 Mg Tablet PO Not Given QHS [facility] Senna 8.6 mg 11/13/24 21:38 Sennosides 8.6 Mg Tablet PO DAILY PRN Constipation Tamsulosin HCl 0.4 mg 11/14/24 09:00 11/15/24 09:43 Tamsulosin Hcl 0.4 Mg Capsule PO Not Given [facility] Radiology Results: ITS Impressions Chest X-Ray 11/13/24 15:04 IMPRESSION: No focal consolidation. Mild perihilar bronchial wall thickening, findings suggestive of respiratory bronchiolitis. Chest/Abdomen/Pelvis CT 11/14/24 09:27 IMPRESSION: Bilateral renal calculi. Asymmetric mural thickening of the base of the bladder for which direct visualization is recommended. Findings which may represent partial distal bowel obstruction with significant air distention of the colon just before the anastomotic staple line and distal decompression. Significant gallbladder distention with trace surrounding inflammatory change. Bibasilar atelectasis. Renal Ultrasound 11/14/24 11:43 Impression: No definite abnormality seen. Visualization of the kidneys is somewhat suboptimal related to patient body habitus. Head CT 11/14/24 18:07 IMPRESSION: No acute intracranial findings. 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 Abdomen/Pelvis CT 11/15/24 09:13 IMPRESSION: 1. Bilateral nephrolithiasis with interval advancement of a 3-4 mm at least partially obstructing stone now at the left ureterovesicular junction with mild left hydroureteronephrosis. 2. Likely intermittent/partial small bowel obstruction secondary to a volvulus with at least 360 degrees twist of the distalmost small bowel immediately proximal to ileocolic anastomosis with no interval change in mild dilation of a few loops of more proximal small bowel. 3. Prominent dilation of the gallbladder to 6.5 cm but without evident wall thickening or pericholecystic infiltrate stranding to more specifically suggest acute cholecystitis. Correlate with the right upper quadrant ultrasound or HIDA scan. 4. Very small right and trace left pleural effusions and minimal perihepatic ascites. Abdomen Ultrasound 11/15/24 09:16 IMPRESSION: Fatty infiltration of the liver. Hydropic, fluid-filled gallbladder with dependent stones suspected. Labs Labs: Laboratory Results - last 24 hr 11/14/24 11/14/24 11/14/24 10:44 11:05 14:25 WBC RBC Hgb Hct MCV MCH MCHC RDW Plt Count MPV Immature Gran % (Auto) Neut % (Auto) Lymph % (Auto) Oliver % (Auto) Eos % (Auto) Baso % (Auto) Lymph # (Auto) Oliver # (Auto) Eos # (Auto) Baso # (Auto) Abs Immat Gran (auto) Absolute Neuts (auto) Absolute Nucleated RBC Nucleated RBC % Sodium Potassium Chloride Carbon Dioxide Anion Gap BUN Creatinine Estim Creat Clear Calc Estimated GFR Glucose POC Capillary Glucose 123 H Lactic Acid 0.6 L Calcium Magnesium Total Bilirubin AST ALT Alkaline Phosphatase Total Protein Albumin Urine Eosinophils Rare Ur Random Sodium 21 Ur Random Urea 394 Urine Creatinine 113.3 11/14/24 11/14/24 11/15/24 15:56 20:22 04:02 WBC 9.9 RBC 3.65 L Hgb 10.2 L Hct 32.5 L MCV 89.0 MCH 27.9 MCHC 31.4 L RDW 15.4 H Plt Count 186 MPV 9.0 Immature Gran % (Auto) 1.8 H Neut % (Auto) 78.2 H Lymph % (Auto) 8.2 L Oliver % (Auto) 9.6 H Eos % (Auto) 1.8 Baso % (Auto) 0.4 Lymph # (Auto) 0.81 L Oliver # (Auto) 1.0 H Eos # (Auto) 0.2 Baso # (Auto) 0.0 Abs Immat Gran (auto) 0.18 H Absolute Neuts (auto) 7.7 H Absolute Nucleated RBC 0.000 Nucleated RBC % 0.0 Sodium 138 Potassium 4.6 Chloride 112 H Carbon Dioxide 14 L Anion Gap 12 BUN 61 H Creatinine 6.29 H Estim Creat Clear Calc 13 Estimated GFR 9 L Glucose 101 POC Capillary Glucose 118 H 109 H Lactic Acid 0.7 Calcium 8.7 Magnesium 1.9 Total Bilirubin 0.2 AST 25 ALT 17 Alkaline Phosphatase 118 Total Protein 6.1 L Albumin 3.0 L Urine Eosinophils Ur Random Sodium Ur Random Urea Urine Creatinine 11/15/24 07:28 WBC RBC Hgb Hct MCV MCH MCHC RDW Plt Count MPV Immature Gran % (Auto) Neut % (Auto) Lymph % (Auto) Oliver % (Auto) Eos % (Auto) Baso % (Auto) Lymph # (Auto) Oliver # (Auto) Eos # (Auto) Baso # (Auto) Abs Immat Gran (auto) Absolute Neuts (auto) Absolute Nucleated RBC Nucleated RBC % Sodium Potassium Chloride Carbon Dioxide Anion Gap BUN Creatinine Estim Creat Clear Calc Estimated GFR Glucose POC Capillary Glucose 96 Lactic Acid Calcium Magnesium Total Bilirubin AST ALT Alkaline Phosphatase Total Protein Albumin Urine Eosinophils Ur Random Sodium Ur Random Urea Urine Creatinine
--- NOTE | 2024-11-15 10:57 | PC.NURSE ---
Called urology office of [place] at [phone]. Spoke with Aleyda, at call center, to report results of CT. Message left to inform Ltety Alejandro NP, that CT shows a partially obstructing stone.
[2024-11-15] MEDS: cefTRIAXone 1 GM in SODIUM CHLORIDE 0.9% IV 50 ML 100 ML IVPB (12:02)
--- NOTE | 2024-11-15 12:04 | P.PNNP_ITS ---
Progress Note: A&P Assessment and Plan (1) Acute kidney injury: Code(s): N17.9 - Acute kidney failure, unspecified Status: Acute Assessment and Plan: * as noted by admission labs * baseline creatinine seems to run ~ 1.1 - 1.3mg/dl * creatinine 1.13mg/dl in July 2024 * suspect multifactorial etiology: * prerenal factors * hypotension/hemodynamic instability * urinary retention/obstruction * infection (gallbladder?) * other(?) * evaluation to date noted: * urine electrolytes prerenal * rare urine eosinophils -- possible AIN? (however, no rash or peripheral eosinophilia) * CPK mildly elevated (but not enough to affect kidney function) * mild proteinuria * UA without evidence of infection * renal ultrasound negative (but limited due to body habitus) * since NPO, continue with IVFs for now * follow trend of repeat labs and UOP (2) SBO (small bowel obstruction): Code(s): K56.609 - Unspecified intestinal obstruction, unspecified as to partial versus complete obstruction Status: Acute Assessment and Plan: * admission CT demonstrated findings which may represent partial distal bowel obstruction with significant air distention of the colon just before the and anastomotic staple line and distal decompression * repeat CT scan noted as well * Surgery following with recommendations noted * continue supportive therapy (3) Dilated gallbladder: Code(s): K82.8 - Other specified diseases of gallbladder Status: Acute Assessment and Plan: * admission CT demonstrated significant gallbladder distention with trace surrounding inflammatory change * repeat CT scan noted as well * normal LFTs * abdominal exam positive for diffuse tenderness to palpation (but unreliable given AMS) * no nausea or vomiting * Surgery following (4) Bilateral nephrolithiasis: Code(s): N20.0 - Calculus of kidney Status: Acute Assessment and Plan: * admission and repeat CT scan noted/reviewed * Urology recommendations noted * continue supportive therapy (5) Hypotension: Qualifiers: Hypotension type: hypotension due to hypovolemia Qualified Code(s): E 86.1 - Hypovolemia Code(s): I95.9 - Hypotension, unspecified Status: Acute Assessment and Plan: * clinically better * BP medications on hold * on trial of IVFs * follow trend of hemodynamics (6) Type 2 diabetes mellitus: Qualifiers: 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 L Subjective Date/time seen: 11/15/24 12:04 Interval history: Follow-up for acute kidney injury/acute renal failure. Renal function/creatinine worse but still making reasonable urine; mentation seems to have worsened as he is completely obtunded at the time of my visit; no other acute issues/events overnight or earlier this morning. Exam 2 Narrative: General: large but ill-appearing male in NAD; obtunded Heart: normal S1 and S2; no rub Lungs: clear anteriorly Abdomen: large and +TTP with deep palpation Extremities: no cyanosis or clubbing; trace edema Skin: warm and dry Objective Data Vital Signs Vital Signs: Vital Signs Temp Pulse Resp BP Pulse Ox O2 Del Method O2 Flow Rate 11/15/24 12:00 64 100 Nasal Cannula 3 11/15/24 11:56 98.1 F 63 20 119/35 L 97 11/15/24 10:00 59 L 11/15/24 08:07 97.5 F L 60 22 H 119/42 L 98 11/15/24 08:00 97 Nasal Cannula 3 11/15/24 08:00 60 11/15/24 07:48 100 Nasal Cannula 3 11/15/24 06:00 59 L 11/15/24 04:00 61 11/15/24 04:00 100 Nasal Cannula 3 11/15/24 03:25 98.9 F 55 L 22 H 122/46 L 100 11/15/24 02:00 54 L 11/15/24 00:00 55 L 11/15/24 00:00 100 Nasal Cannula 3 11/14/24 23:33 98.1 F 52 L 22 H 118/48 L 96 11/14/24 22:00 53 L 11/14/24 20:00 55 L 11/14/24 20:00 100 Nasal Cannula 3 11/14/24 19:41 98.2 F 60 21 H 129/48 L 100 11/14/24 18:00 58 L Intake/Output Intake/Output: Intake & Output 11/12/24 11/13/24 11/14/24 11/15/24 23:59 23:59 23:59 23:59 Intake Total 2100 3465.8 254.2 Output Total 700 200 Balance 2100 2765.8 54.2 Meds/Results Medications: Active Medications Generic Name Dose Route Start Last Admin Trade Name Freq PRN Reason Stop Dose Admin Acetaminophen 650 mg 11/13/24 21:38 Acetaminophen 325 Mg Tablet PO Q8H PRN Pain Rated 1-3 Albuterol 2 puff 11/13/24 21:38 Albuterol Sulfate (*Sp) Aerosol 1 Puff INHALATION Q4H PRN Wheezing Artificial Tears 1 drop 11/13/24 21:58 Artificial Tears Ophth Soln 15 Ml Bottle EACH EYE QID PRN Dry Eye(s) Aspirin 81 mg 11/14/24 09:00 11/15/24 09:43 Aspirin 81 Mg Enteric Tablet PO Not Given DAILY [facility] Benzonatate 100 mg 11/13/24 21:38 Benzonatate 100 Mg Capsule PO TID PRN cough Brimonidine Tartrate 1 drop 11/14/24 06:00 11/15/24 15:25 Brimonidine Tartrate 0.2% Op Soln 5 Ml Btl EACH EYE 1 drop Q8HR [facility] Administration Brinzolamide 1 drop 11/14/24 06:00 11/15/24 15:25 Brinzolamide 1% Ophth Susp 10 Ml EACH EYE 1 drop Q8HR [facility] Administration Cholestyramine Resin 4 gm 11/14/24 10:00 11/15/24 14:18 Cholestyramine (W/ Sugar) 4 Gm Powd.Pack PO Not Given 1000,1300,1800 [facility]O Dextrose 12.5 gm 11/13/24 21:30 Dextrose 50% 25 Gm/50 Ml Syringe IV PUSH PRN PRN Hypoglycemia Protocol Escitalopram Oxalate 15 mg 11/14/24 09:00 11/15/24 09:43 Escitalopram Oxalate 5 Mg Tablet PO Not Given QAM [facility] Fluticasone/Umeclidinium/Vilanterol 1 puff 11/14/24 08:00 11/15/24 07:35 Fluticasone/Umeclidin/Vilanter 100-62.5-25 Mcg Ellipta INHALATION 1 puff DAILYRT [facility] Administration Gabapentin 100 mg 11/14/24 09:00 11/15/24 14:18 Gabapentin 100 Mg Capsule PO Not Given TID [facility] Glucagon 1 mg 11/13/24 21:30 Glucagon For Inj 1 Mg Vial IM PRN PRN Hypoglycemia Protocol Glucose 15 gm 11/13/24 21:30 Glucose Oral Gel 15 Gm Of Glucse In 37.5 Gm Tube PO PRN PRN Hypoglycemia Protocol Guaifenesin/Dextromethorphan 10 ml 11/13/24 21:38 Guaifenesin/Dextromethorphan 10 Ml Udc PO Q4-6H PRN Cough Heparin Sodium (Porcine) 5,000 units 11/14/24 22:00 11/15/24 15:25 Heparin Sodium 5,000 Units/Ml Vial SUB-Q 5,000 units Q8HR [facility] Administration Sodium Chloride 1,000 mls @ 75 mls/hr 11/13/24 17:55 11/15/24 01:12 Normal Saline Iv IV CONT 75 mls/hr .[id number] [facility] Administration Dextrose 1,000 mls @ 100 mls/hr 11/13/24 21:30 Dextrose 5% 1,000 Ml IVPB PRN PRN Hypoglycemia Protocol Ceftriaxone Sodium 1 gm/ 50 mls @ 100 mls/hr 11/14/24 12:00 11/15/24 12:02 Sodium Chloride IVPB 100 mls/hr Q24H [facility] Administration Metronidazole 500 mg in 100 mls @ 100 mls/hr 11/14/24 12:00 11/15/24 15:24 Flagyl 500 Mg/Iso Soln 100 Ml IVPB 100 mls/hr Q8HR [facility] Administration Insulin Aspart 3 - 6 units 11/14/24 08:00 11/15/24 11:52 Insulin Aspart (*Bkc) 100 Units/Ml SUB-Q Not Given TIDWM [facility] Protocol Lidocaine 1 patch 11/14/24 09:00 11/15/24 09:43 Lidocaine 5% Patch TOPICAL Not Given DAILY [facility] Loperamide HCl 2 mg 11/13/24 21:38 Loperamide Hcl 2 Mg Capsule PO Q6H PRN Diarrhea Melatonin 5 mg 11/13/24 22:00 11/14/24 20:45 Melatonin 5 Mg Tablet PO Not Given HS [facility] Ondansetron HCl 4 mg 11/13/24 21:38 Ondansetron Hcl Odt 4 Mg Tablet PO Q4H PRN Nausea And Vomiting Oxycodone HCl 5 mg 11/13/24 21:38 Oxycodone Hcl (*Crx) 5 Mg Tab Ir PO QHS PRN Pain Rated 4-6 Psyllium Hydrophilic Mucilloid 1 packet 11/13/24 22:00 Psyllium Sugar Free Powder Packet PO DAILY PRN constipation Rosuvastatin Calcium 40 mg 11/13/24 22:00 11/14/24 20:45 Rosuvastatin 20 Mg Tablet PO Not Given QHS [facility] Senna 8.6 mg 11/13/24 21:38 Sennosides 8.6 Mg Tablet PO DAILY PRN Constipation Tamsulosin HCl 0.4 mg 11/14/24 09:00 11/15/24 09:43 Tamsulosin Hcl 0.4 Mg Capsule PO Not Given [facility] Radiology Results: ITS Impressions Chest X-Ray 11/13/24 15:04 IMPRESSION: No focal consolidation. Mild perihilar bronchial wall thickening, findings suggestive of respiratory bronchiolitis. Chest/Abdomen/Pelvis CT 11/14/24 09:27 IMPRESSION: Bilateral renal calculi. Asymmetric mural thickening of the base of the bladder for which direct visualization is recommended. Findings which may represent partial distal bowel obstruction with significant air distention of the colon just before the anastomotic staple line and distal decompression. Significant gallbladder distention with trace surrounding inflammatory change. Bibasilar atelectasis. Renal Ultrasound 11/14/24 11:43 Impression: No definite abnormality seen. Visualization of the kidneys is somewhat suboptimal related to patient body habitus. Head CT 11/14/24 18:07 IMPRESSION: No acute intracranial findings. 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 Abdomen/Pelvis CT 11/15/24 09:13 IMPRESSION: 1. Bilateral nephrolithiasis with interval advancement of a 3-4 mm at least partially obstructing stone now at the left ureterovesicular junction with mild left hydroureteronephrosis. 2. Likely intermittent/partial small bowel obstruction secondary to a volvulus with at least 360 degrees twist of the distalmost small bowel immediately proximal to ileocolic anastomosis with no interval change in mild dilation of a few loops of more proximal small bowel. 3. Prominent dilation of the gallbladder to 6.5 cm but without evident wall thickening or pericholecystic infiltrate stranding to more specifically suggest acute cholecystitis. Correlate with the right upper quadrant ultrasound or HIDA scan. 4. Very small right and trace left pleural effusions and minimal perihepatic ascites. Abdomen Ultrasound 11/15/24 09:16 IMPRESSION: Fatty infiltration of the liver. Hydropic, fluid-filled gallbladder with dependent stones suspected. Labs Labs: Laboratory Tests 11/15/24 04:02 11/15/24 04:02 Lactic Acid 0.7 Calcium 8.7 Magnesium 1.9 Total Bilirubin 0.2 AST 25 ALT 17 Alkaline Phosphatase 118 Total Protein 6.1 L Albumin 3.0 L Microbiology 11/14/24 04:07 Urine Catheterized Urine Culture Reflexed - Final 11/13/24 14:50 Blood Blood Culture - Preliminary 11/13/24 14:21 Blood Blood Culture - Preliminary
--- NOTE | 2024-11-15 12:44 | WPDNEURCNPN ---
Assessment and Plan Assessment and plan (1) Acute renal insufficiency: Code(s): N28.9 - Disorder of kidney and ureter, unspecified Status: Acute (2) Weakness: Code(s): R53.1 - Weakness Status: Acute (3) Metabolic encephalopathy: Code(s): G93.41 - Metabolic encephalopathy Status: Acute (4) TIA (transient ischemic attack): Code(s): G45.9 - Transient cerebral ischemic attack, unspecified Status: Acute Plan 1. Status post right hemispheric stroke with left hemiparesis 2. Hypertension 3. Diabetes mellitus 4. Chronic obstructive pulmonary disease 5. Increasing generalized weakness likely metabolic in nature with elevated creatinine of 6.29, BUN of 61. Need the continuation of medical treatment if necessary MRI of the brain to document any progression of the stroke As the CT scan can be negative in the early stages of the stroke. Consult date: 11/15/24 HPI: Brent Higginbotham is a 69 year old male has been admitted to the hospital for the complaints of generalized weakness in addition to history of not eating or drinking well along with the chronic right shoulder pain since his previous stroke. Patient has been taking multiple medications as outlined particularly aspirin 81mg daily, carvedilol 3.125mg b.i.d., E citalopram 15mg daily, gabapentin 100mg 3 times a day, glipizide 5mg every morning, rosuvastatin 40mg at night, oxycodone 5mg HS p.r.n. for the pain, he is reportedly allergic to multiple medication as outlined, has ongoing history of in the past 1. Coronary artery disease 2. Chronic obstructive pulmonary disease 3. Hypertension 4. Diabetes mellitus and 5. Stroke 6. History of coronary artery stenting and history of partial colectomy. He also history of years smoked 50 his smoking pack years 50 and currently everyday smoker. On initial exam in the emergency room he was in no obvious acute distress, vital signs were normal, CBC was normal, BMP with BUN of 61 and creatinine 5.43, otherwise mast scan was normal. Initial CT scan documented encephalomalacia in the right hemisphere in the distribution of the anterior and middle cerebral artery but no Bleeding. During the hospitalization general surgeon has seen him for the dilated gallbladder with the possibility of acute cholecystitis, and is being followed by the general surgeon as well. Review of Systems Review of Systems: All systems reviewed & are unremarkable except as noted in HPI and below PMFSH Past Medical History Medical History Coronary artery disease Benign prostatic hyperplasia Tobacco abuse Chronic obstructive pulmonary disease Obstructive sleep apnea Intolerant of CPAP Hypertension Type 2 diabetes mellitus Cerebrovascular accident Surgical History Surgical History History of coronary artery stent placement History of cardiac catheterization History of partial colectomy Family History Family History Other Family history non-contributory Social History Social History Social History: Surrogate medical decision maker: Clarita Hobbs, mother. Code status: Full code. Smoking packs per day: 1 Smoking cigarettes per day: 20.0 Years smoked: 50 Smoking pack-years: 50.00 Smoking status: Current every day smoker Tobacco type: cigarettes Alcohol intake: former Substance use: never Do You Feel Safe in your Home?: Yes Lack of Transportation: No Lack of Food: Never True Current Housing: I Have Housing Concerned About Future Housing: No Difficulty Paying Gas/Electric Bills: No Difficulty Paying for Meds: No Currently Unemployed: No Education: High School Diploma/GED Difficulty w/ Childcare or Family Care: No Additional living arrangements comments: Resident at [facility]. 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 Spiritual care concerns: No Meds Home Medications and Allergies Home Medications ?Medication ?Instructions ?Recorded ?Confirmed ?Type acetaminophen 325 mg tablet 650 mg PO Q8H PRN Pain, Mild 11/07/23 11/13/24 History albuterol sulfate 90 mcg/actuation 2 puff inhalation Q4H PRN Wheezing 11/07/23 11/13/24 History aerosol inhaler aspirin 81 mg tablet,delayed 81 mg PO DAILY 11/07/23 11/13/24 History release cabergoline 0.5 mg tablet 0.5 mg PO 2XW 11/07/23 11/13/24 History carboxymethylcellulose sodium 0.5 1 drp EACH EYE QID PRN Dry Eyes 11/07/23 11/13/24 History % eye drops in a dropperette (Refresh Plus) carvedilol 3.125 mg tablet 3.125 mg PO BID 11/07/23 11/13/24 History dextromethorphan-guaifenesin 10 10 ml PO Q4-6H PRN Cough 11/07/23 11/13/24 History mg-100 mg/5 mL oral syrup escitalopram oxalate 20 mg tablet 15 mg PO QAM 11/07/23 11/13/24 History gabapentin 100 mg capsule 100 mg PO TID 11/07/23 11/13/24 History glipizide 5 mg tablet 5 mg PO QAM 11/07/23 11/13/24 History loperamide 2 mg capsule 2 mg PO Q6H PRN Diarrhea 11/07/23 11/13/24 History (Anti-Diarrheal (loperamide)) melatonin 5 mg tablet 5 mg PO HS 11/07/23 11/13/24 History ondansetron 4 mg disintegrating 4 mg PO Q4H PRN Nausea And Vomiting 11/07/23 11/13/24 History tablet rosuvastatin 40 mg tablet 40 mg PO QHS 11/07/23 11/13/24 History sennosides 8.6 mg tablet (Senokot) 8.6 mg PO PRN PRN Constipation 11/07/23 11/13/24 History tamsulosin 0.4 mg capsule 0.4 mg PO QAM 11/07/23 11/13/24 History tiotropium bromide 2.5 2 puff inhalation QAM 11/07/23 11/13/24 History mcg/actuation mist for inhalation (Spiriva Respimat) benzonatate 100 mg capsule 100 mg PO TID PRN cough 05/16/24 11/13/24 History brinzolamide 1 %-brimonidine 0.2 % 1 drp EACH EYE TID 05/18/24 11/13/24 History eye drops,suspension (Simbrinza) budesonide 160 mcg-glycopyr 9 2 inh inhalation BID 05/18/24 11/13/24 History mcg-formot 4.8 mcg/actuation HFA inhaler (Breztri Aerosphere) oxycodone 5 mg tablet 5 mg PO QHS pain 05/18/24 11/13/24 History insulin aspart U-100 100 unit/mL 1 sliding scale dose subcut 05/20/24 11/13/24 Rx (3 mL) subcutaneous pen (Novolog USEASDIRECTD #15 mL FlexPen U-100 Insulin aspart) insulin glargine 100 unit/mL 15 unit (0.15 mL) subcut HS 15 05/20/24 11/13/24 Rx subcutaneous solution (Lantus days #2.25 mL U-100 Insulin) cholestyramine 4 gram oral powder 4 g PO TID 11/13/24 11/13/24 History lidocaine 5 % topical patch 1 patch topical DAILY back pain 11/13/24 11/13/24 History psyllium husk 0.4 gram capsule 0.4 g PO DAILY PRN constipation 11/13/24 11/13/24 History (Fiber (psyllium husk)) Allergies Allergy/AdvReac Type Severity Reaction Status Date / Time hydralazine AdvReac Vomiting Verified 11/13/24 14:12 lisinopril AdvReac Rash Verified 11/13/24 14:12 metformin AdvReac Diarrhea Verified 11/13/24 14:12 pioglitazone AdvReac Nausea Verified 11/13/24 14:12 simvastatin AdvReac Rash Verified 11/13/24 14:12 Vital Signs Vital Signs - 24 hr 11/14/24 14:00 11/14/24 16:00 11/14/24 16:00 Temperature Pulse Rate 57 L 53 L Respiratory Rate Blood Pressure Pulse Oximetry 96 Oxygen Delivery Nasal Cannula Oxygen Flow Rate 3 11/14/24 16:12 11/14/24 18:00 11/14/24 19:41 Temperature 36.8 C 36.8 C Pulse Rate 53 L 58 L 60 Respiratory Rate 22 H 21 H Blood Pressure 105/30 L 129/48 L Pulse Oximetry 96 100 Oxygen Delivery Oxygen Flow Rate 11/14/24 20:00 11/14/24 20:00 11/14/24 22:00 Temperature Pulse Rate 55 L 53 L Respiratory Rate Blood Pressure Pulse Oximetry 100 Oxygen Delivery Nasal Cannula Oxygen Flow Rate 3 11/14/24 23:33 11/15/24 00:00 11/15/24 00:00 Temperature 36.7 C Pulse Rate 52 L 55 L Respiratory Rate 22 H Blood Pressure 118/48 L Pulse Oximetry 96 100 Oxygen Delivery Nasal Cannula Oxygen Flow Rate 3 11/15/24 02:00 11/15/24 03:25 11/15/24 04:00 Temperature 37.2 C Pulse Rate 54 L 55 L Respiratory Rate 22 H Blood Pressure 122/46 L Pulse Oximetry 100 100 Oxygen Delivery Nasal Cannula Oxygen Flow Rate 3 11/15/24 04:00 11/15/24 06:00 11/15/24 07:48 Temperature Pulse Rate 61 59 L Respiratory Rate Blood Pressure Pulse Oximetry 100 Oxygen Delivery Nasal Cannula Oxygen Flow Rate 3 11/15/24 08:07 11/15/24 11:56 Temperature 36.4 C L 36.7 C Pulse Rate 60 63 Respiratory Rate 22 H 20 Blood Pressure 119/42 L 119/35 L Pulse Oximetry 98 97 Oxygen Delivery Oxygen Flow Rate Exam Narrative: Exam today revealed him to be awake alert cooperative in obvious acute distress , head normocephalic with no bruit, ear nose throat examination normal, neck supple with no meningeal signs, heart regular with no murmur, lungs clear to auscultation with no rhonchi or crepitations, abdomen is soft nontender with normal bowel sounds, neurologically he is awake alert able to follow all the verbal commands but appears in distress, able to follow the verbal commands appropriately, pupils round regular vitale of the vision for with questionable neglect on the left side face symmetrical, tongue midline motor examination reveals him to be left hemiparetic with hyperreflexia and upgoing plantar responses on left, there is no evidence of gross cerebellar deficit considering the neurological deficit on the left side. Results Labs 11/15/24 04:02 11/15/24 04:02 Labs: Short CBC 11/15/24 Range/Units 04:02 WBC 9.9 (4.5-10.0) K/mm3 Hgb 10.2 L (14.0-18.0) g/dL Hct 32.5 L (42.0-52.0) % Plt Count 186 (150-375) k/mm3 BMP 11/15/24 04:02 Sodium 138 Potassium 4.6 Chloride 112 H Carbon Dioxide 14 L BUN 61 H Creatinine 6.29 H Glucose 101 Calcium 8.7 Liver Function 11/15/24 Range/Units 04:02 Total Bilirubin 0.2 (0.2-1.3) mg/dL AST 25 (17-59) U/L ALT 17 (6-50) U/L Alkaline Phosphatase 118 (38-126) U/L Albumin 3.0 L (3.5-5.1) g/dL
[2024-11-15 12:52] LABS: Ammonia < 9 umol/L (9-30)
--- NOTE | 2024-11-15 16:31 | P.PNUR_ITS ---
Progress Note: A&P Assessment and Plan (1) Acute renal insufficiency: Code(s): N28.9 - Disorder of kidney and ureter, unspecified Status: Acute Assessment and Plan: Etiology may be multifactorial. His bilateral renal calculi do not appear obstructive . There is mild left hydro secondary to a 3-4 mm left ureteral stone. Doubt sole cause of the renal insufficiency but if creatinine rises tomorrow will plan on cysto, bilateral retrogrades, stents with possible ureteroscopy with stone extraction. Family aware and agree. (2) Hydroureteronephrosis: Code(s): N13.30 - Unspecified hydronephrosis Status: Acute Assessment and Plan: see above (3) Bilateral nephrolithiasis: Code(s): N20.0 - Calculus of kidney Status: Acute Assessment and Plan: see above Subjective Subjective Date/Time Seen: 11/15/24 16:31 Principal diagnosis: renal insufficiency with bilateral renal calculi and 3-4 mm left ureteral Interval history: Patient non communicative at this time. Discussed with his sister and family. Review of Systems Review of Systems: All systems reviewed & are unremarkable except as noted in HPI and below Objective Data Vital Signs Vital Signs: Vital Signs - 24 hr 11/14/24 18:00 11/14/24 19:41 11/14/24 20:00 Temperature 36.8 C Pulse Rate 58 L 60 Respiratory Rate 21 H Blood Pressure 129/48 L Pulse Oximetry 100 100 Oxygen Delivery Nasal Cannula Oxygen Flow Rate 3 11/14/24 20:00 11/14/24 22:00 11/14/24 23:33 Temperature 36.7 C Pulse Rate 55 L 53 L 52 L Respiratory Rate 22 H Blood Pressure 118/48 L Pulse Oximetry 96 Oxygen Delivery Oxygen Flow Rate 11/15/24 00:00 11/15/24 00:00 11/15/24 02:00 Temperature Pulse Rate 55 L 54 L Respiratory Rate Blood Pressure Pulse Oximetry 100 Oxygen Delivery Nasal Cannula Oxygen Flow Rate 3 11/15/24 03:25 11/15/24 04:00 11/15/24 04:00 Temperature 37.2 C Pulse Rate 55 L 61 Respiratory Rate 22 H Blood Pressure 122/46 L Pulse Oximetry 100 100 Oxygen Delivery Nasal Cannula Oxygen Flow Rate 3 11/15/24 06:00 11/15/24 07:48 11/15/24 08:00 Temperature Pulse Rate 59 L 60 Respiratory Rate Blood Pressure Pulse Oximetry 100 Oxygen Delivery Nasal Cannula Oxygen Flow Rate 3 11/15/24 08:00 11/15/24 08:07 11/15/24 10:00 Temperature 36.4 C L Pulse Rate 60 59 L Respiratory Rate 22 H Blood Pressure 119/42 L Pulse Oximetry 97 98 Oxygen Delivery Nasal Cannula Oxygen Flow Rate 3 11/15/24 11:56 11/15/24 12:00 11/15/24 12:00 Temperature 36.7 C Pulse Rate 63 64 Respiratory Rate 20 Blood Pressure 119/35 L Pulse Oximetry 97 100 Oxygen Delivery Nasal Cannula Oxygen Flow Rate 3 11/15/24 14:00 Temperature Pulse Rate 63 Respiratory Rate Blood Pressure Pulse Oximetry Oxygen Delivery Oxygen Flow Rate Intake/Output Intake/Output: Intake & Output 11/12/24 11/13/24 11/14/24 11/15/24 23:59 23:59 23:59 23:59 Intake Total 2100 3465.8 254.2 Output Total 700 200 Balance 2100 2765.8 54.2 Meds/Results Medications: Active Medications Generic Name Dose Route Start Last Admin Trade Name Freq PRN Reason Stop Dose Admin Acetaminophen 650 mg 11/13/24 21:38 Acetaminophen 325 Mg Tablet PO Q8H PRN Pain Rated 1-3 Albuterol 2 puff 11/13/24 21:38 Albuterol Sulfate (*Sp) Aerosol 1 Puff INHALATION Q4H PRN Wheezing Artificial Tears 1 drop 11/13/24 21:58 Artificial Tears Ophth Soln 15 Ml Bottle EACH EYE QID PRN Dry Eye(s) Aspirin 81 mg 11/14/24 09:00 11/15/24 09:43 Aspirin 81 Mg Enteric Tablet PO Not Given DAILY BERNARDO Benzonatate 100 mg 11/13/24 21:38 Benzonatate 100 Mg Capsule PO TID PRN cough Brimonidine Tartrate 1 drop 11/14/24 06:00 11/15/24 15:25 Brimonidine Tartrate 0.2% Op Soln 5 Ml Btl EACH EYE 1 drop Q8HR BERNARDO Administration Brinzolamide 1 drop 11/14/24 06:00 11/15/24 15:25 Brinzolamide 1% Ophth Susp 10 Ml EACH EYE 1 drop Q8HR BERNARDO Administration Cholestyramine Resin 4 gm 11/14/24 10:00 11/15/24 14:18 Cholestyramine (W/ Sugar) 4 Gm Powd.Pack PO Not Given 1000,1300,1800 BERNARDO Dextrose 12.5 gm 11/13/24 21:30 Dextrose 50% 25 Gm/50 Ml Syringe IV PUSH PRN PRN Hypoglycemia Protocol Escitalopram Oxalate 15 mg 11/14/24 09:00 11/15/24 09:43 Escitalopram Oxalate 5 Mg Tablet PO Not Given QAM BERNARDO Fluticasone/Umeclidinium/Vilanterol 1 puff 11/14/24 08:00 11/15/24 07:35 Fluticasone/Umeclidin/Vilanter 100-62.5-25 Mcg Ellipta INHALATION 1 puff DAILYRT BERNARDO Administration Gabapentin 100 mg 11/14/24 09:00 11/15/24 14:18 Gabapentin 100 Mg Capsule PO Not Given TID BERNARDO Glucagon 1 mg 11/13/24 21:30 Glucagon For Inj 1 Mg Vial IM PRN PRN Hypoglycemia Protocol Glucose 15 gm 11/13/24 21:30 Glucose Oral Gel 15 Gm Of Glucse In 37.5 Gm Tube PO PRN PRN Hypoglycemia Protocol Guaifenesin/Dextromethorphan 10 ml 11/13/24 21:38 Guaifenesin/Dextromethorphan 10 Ml Udc PO Q4-6H PRN Cough Heparin Sodium (Porcine) 5,000 units 11/14/24 22:00 11/15/24 15:25 Heparin Sodium 5,000 Units/Ml Vial SUB-Q 5,000 units Q8HR BERNARDO Administration Sodium Chloride 1,000 mls @ 75 mls/hr 11/13/24 17:55 11/15/24 01:12 Normal Saline Iv IV CONT 75 mls/hr .[id number] BERNARDO Administration Dextrose 1,000 mls @ 100 mls/hr 11/13/24 21:30 Dextrose 5% 1,000 Ml IVPB PRN PRN Hypoglycemia Protocol Ceftriaxone Sodium 1 gm/ 50 mls @ 100 mls/hr 11/14/24 12:00 11/15/24 12:02 Sodium Chloride IVPB 100 mls/hr Q24H BERNARDO Administration Metronidazole 500 mg in 100 mls @ 100 mls/hr 11/14/24 12:00 11/15/24 15:24 Flagyl 500 Mg/Iso Soln 100 Ml IVPB 100 mls/hr Q8HR BERNARDO Administration Insulin Aspart 3 - 6 units 11/14/24 08:00 11/15/24 11:52 Insulin Aspart (*Bkc) 100 Units/Ml SUB-Q Not Given TIDWM [facility] Protocol Lidocaine 1 patch 11/14/24 09:00 11/15/24 09:43 Lidocaine 5% Patch TOPICAL Not Given DAILY BERNARDO Loperamide HCl 2 mg 11/13/24 21:38 Loperamide Hcl 2 Mg Capsule PO Q6H PRN Diarrhea Melatonin 5 mg 11/13/24 22:00 11/14/24 20:45 Melatonin 5 Mg Tablet PO Not Given HS BERNARDO Ondansetron HCl 4 mg 11/13/24 21:38 Ondansetron Hcl Odt 4 Mg Tablet PO Q4H PRN Nausea And Vomiting Oxycodone HCl 5 mg 11/13/24 21:38 Oxycodone Hcl (*Crx) 5 Mg Tab Ir PO QHS PRN Pain Rated 4-6 Psyllium Hydrophilic Mucilloid 1 packet 11/13/24 22:00 Psyllium Sugar Free Powder Packet PO DAILY PRN constipation Rosuvastatin Calcium 40 mg 11/13/24 22:00 11/14/24 20:45 Rosuvastatin 20 Mg Tablet PO Not Given QHS [facility] Senna 8.6 mg 11/13/24 21:38 Sennosides 8.6 Mg Tablet PO DAILY PRN Constipation Tamsulosin HCl 0.4 mg 11/14/24 09:00 11/15/24 09:43 Tamsulosin Hcl 0.4 Mg Capsule PO Not Given QAM [facility] Radiology Results: ITS Impressions Chest X-Ray 11/13/24 15:04 IMPRESSION: No focal consolidation. Mild perihilar bronchial wall thickening, findings suggestive of respiratory bronchiolitis. Chest/Abdomen/Pelvis CT 11/14/24 09:27 IMPRESSION: Bilateral renal calculi. Asymmetric mural thickening of the base of the bladder for which direct visualization is recommended. Findings which may represent partial distal bowel obstruction with significant air distention of the colon just before the anastomotic staple line and distal decompression. Significant gallbladder distention with trace surrounding inflammatory change. Bibasilar atelectasis. Renal Ultrasound 11/14/24 11:43 Impression: No definite abnormality seen. Visualization of the kidneys is somewhat suboptimal related to patient body habitus. Head CT 11/14/24 18:07 IMPRESSION: No acute intracranial findings. 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 Abdomen/Pelvis CT 11/15/24 09:13 IMPRESSION: 1. Bilateral nephrolithiasis with interval advancement of a 3-4 mm at least partially obstructing stone now at the left ureterovesicular junction with mild left hydroureteronephrosis. 2. Likely intermittent/partial small bowel obstruction secondary to a volvulus with at least 360 degrees twist of the distalmost small bowel immediately proximal to ileocolic anastomosis with no interval change in mild dilation of a few loops of more proximal small bowel. 3. Prominent dilation of the gallbladder to 6.5 cm but without evident wall thickening or pericholecystic infiltrate stranding to more specifically suggest acute cholecystitis. Correlate with the right upper quadrant ultrasound or HIDA scan. 4. Very small right and trace left pleural effusions and minimal perihepatic ascites. Abdomen Ultrasound 11/15/24 09:16 IMPRESSION: Fatty infiltration of the liver. Hydropic, fluid-filled gallbladder with dependent stones suspected. Hepatobiliary Scan Nuclear Medicine 11/15/24 15:34 IMPRESSION: 1. Normal hepatobiliary scan. Labs Labs: Laboratory Results - last 24 hr 11/14/24 11/15/24 11/15/24 20:22 04:02 07:28 WBC 9.9 RBC 3.65 L Hgb 10.2 L Hct 32.5 L MCV 89.0 MCH 27.9 MCHC 31.4 L RDW 15.4 H Plt Count 186 MPV 9.0 Immature Gran % (Auto) 1.8 H Neut % (Auto) 78.2 H Lymph % (Auto) 8.2 L [place] % (Auto) 9.6 H Eos % (Auto) 1.8 Baso % (Auto) 0.4 Lymph # (Auto) 0.81 L [place] # (Auto) 1.0 H Eos # (Auto) 0.2 Baso # (Auto) 0.0 Abs Immat Gran (auto) 0.18 H Absolute Neuts (auto) 7.7 H Absolute Nucleated RBC 0.000 Nucleated RBC % 0.0 Sodium 138 Potassium 4.6 Chloride 112 H Carbon Dioxide 14 L Anion Gap 12 BUN 61 H Creatinine 6.29 H Estim Creat Clear Calc 13 Estimated GFR 9 L Glucose 101 POC Capillary Glucose 109 H 96 Lactic Acid 0.7 Calcium 8.7 Magnesium 1.9 Total Bilirubin 0.2 AST 25 ALT 17 Alkaline Phosphatase 118 Ammonia Total Protein 6.1 L Albumin 3.0 L 11/15/24 11/15/24 11/15/24 11:21 12:35 15:55 WBC RBC Hgb Hct MCV MCH MCHC RDW Plt Count MPV Immature Gran % (Auto) Neut % (Auto) Lymph % (Auto) [place] % (Auto) Eos % (Auto) Baso % (Auto) Lymph # (Auto) [place] # (Auto) Eos # (Auto) Baso # (Auto) Abs Immat Gran (auto) Absolute Neuts (auto) Absolute Nucleated RBC Nucleated RBC % Sodium Potassium Chloride Carbon Dioxide Anion Gap BUN Creatinine Estim Creat Clear Calc Estimated GFR Glucose POC Capillary Glucose 107 H 89 Lactic Acid Calcium Magnesium Total Bilirubin AST ALT Alkaline Phosphatase Ammonia < 9 L Total Protein Albumin
--- NOTE | 2024-11-15 17:36 | P.PNIM_ITS ---
Progress Note: A&P Assessment and Plan (1) Acute renal failure: Qualifiers: Acute renal failure type: unspecified Qualified Code(s): N17.9 - Acute kidney failure, unspecified Code(s): N17.9 - Acute kidney failure, unspecified Status: Acute Assessment and Plan: - creatinine 5.43, BUN 61, GFR 11 - baseline: 1.1-1.3 - renal ultrasound unremarkable Cr 6.29 today continue IVF and [place] catheter Urology planning for possible Cystocopy nephrology and urology following (2) Hypotension: Qualifiers: Hypotension type: hypotension due to hypovolemia Qualified Code(s): E86.1 - Hypovolemia Code(s): I95.9 - Hypotension, unspecified Status: Resolved Assessment and Plan: patient was hypotensive on presentation r/o infection HIDA negative Continue Rocephin and Flagyl monitor cultures (3) Type 2 diabetes mellitus: Qualifiers: Diabetes mellitus shelter insulin use: with assistant terminal manager use Diabetes mellitus complication status: with hypoglycemia Diabetes mellitus complication detail: without coma Qualified Code(s): E11.649 - Type 2 diabetes mellitus with hypoglycemia without coma; Z79.4 - exterminator (current) use of insulin Code(s): E11.9 - Type 2 diabetes mellitus without complications Status: Chronic Assessment and Plan: NPO CCI with accucheks and adjust with clinical course (4) Hypertension: Qualifiers: Hypertension type: primary hypertension Qualified Code(s): I10 - Ess ential (primary) hypertension Code(s): I10 - Essential (primary) hypertension Status: Chronic Assessment and Plan: titrate home meds with clinical course Plan Partial SBO CT AP reviewed NPO, IVF, consider NG tube if vomiting Gen surgery following monitor Gall bladder distension Rule out Acute cholecystitis CT AP reviewed HIDA scan ordered continue Rocephin and Metronidazole Blood culture Hydrops Gallbladder US abd reviewed Gen surgery following AMS Seizure vs Stroke vs Metabolic CT head no acute changes MRI brain, EEG Ammonia <9 Neurology consulted Diet: heart healthy DVT Prophylaxis: Sq Heparin Code Status: DNR Subjective Date/time seen: 11/15/24 17:36 Interval history: Patient remains obtunded CT head unremarkable, NH3 <9 EEG and Neurology Review of Systems Review of Systems: All systems reviewed & are unremarkable except as noted in HPI and below Exam Const: General: comfortable and no acute distress Other: , male, chronically ill-appearing HENMT: Face/Nose/Sinus: Normal nares present Mouth: Yes dry mucous membranes Eyes: General: appearance normal, both eyes and all related structures Sclera: sclerae normal Pupils: Equal, round and reactive pupils present EOM: EOMs intact bilaterally Resp: Effort & Inspection: normal respiratory effort Auscultation: clear to auscultation bilaterally Cardio: Rate: regular rate Rhythm: regular rhythm Other: S1-S2 present without murmur, rub, ectopy GI: Other: Abdomen soft, nondistended, nontender. quiet but normoactive bowel sounds in all quadrants. Skin: General skin exam: normal color Other: skin tear to the left upper extremity, Steri-Stripped. No active bleeding. Various areas of ecchymosis to bilateral upper extremities, no particular pattern. In various stages of healing. Neuro: Cranial nerves: Yes Equal, round and reactive pupils present Speech: normal speech Motor exam (neuro): 5/5 motor strength present throughout Sensory Exam: normal sensation Other: A&O x3 Extrem: General: normal to inspection Psych: Mental Status: mental status grossly normal Affect: normal affect Other: fair insight and judgment. Objective Data Vital Signs Vital Signs: Vital Signs - 24 hr 11/14/24 18:00 11/14/24 19:41 11/14/24 20:00 Temperature 98.2 F Pulse Rate 58 L 60 Respiratory Rate 21 H Blood Pressure 129/48 L Pulse Oximetry 100 100 Oxygen Delivery Nasal Cannula Oxygen Flow Rate 3 11/14/24 20:00 11/14/24 22:00 11/14/24 23:33 Temperature 98.1 F Pulse Rate 55 L 53 L 52 L Respiratory Rate 22 H Blood Pressure 118/48 L Pulse Oximetry 96 Oxygen Delivery Oxygen Flow Rate 11/15/24 00:00 11/15/24 00:00 11/15/24 02:00 Temperature Pulse Rate 55 L 54 L Respiratory Rate Blood Pressure Pulse Oximetry 100 Oxygen Delivery Nasal Cannula Oxygen Flow Rate 3 11/15/24 03:25 11/15/24 04:00 11/15/24 04:00 Temperature 98.9 F Pulse Rate 55 L 61 Respiratory Rate 22 H Blood Pressure 122/46 L Pulse Oximetry 100 100 Oxygen Delivery Nasal Cannula Oxygen Flow Rate 3 11/15/24 06:00 11/15/24 07:48 11/15/24 08:00 Temperature Pulse Rate 59 L 60 Respiratory Rate Blood Pressure Pulse Oximetry 100 Oxygen Delivery Nasal Cannula Oxygen Flow Rate 3 11/15/24 08:00 11/15/24 08:07 11/15/24 10:00 Temperature 97.5 F L Pulse Rate 60 59 L Respiratory Rate 22 H Blood Pressure 119/42 L Pulse Oximetry 97 98 Oxygen Delivery Nasal Cannula Oxygen Flow Rate 3 11/15/24 11:56 11/15/24 12:00 11/15/24 12:00 Temperature 98.1 F Pulse Rate 63 64 Respiratory Rate 20 Blood Pressure 119/35 L Pulse Oximetry 97 100 Oxygen Delivery Nasal Cannula Oxygen Flow Rate 3 11/15/24 14:00 11/15/24 16:36 Temperature 98.7 F Pulse Rate 63 61 Respiratory Rate 24 H Blood Pressure 133/45 L Pulse Oximetry 98 Oxygen Delivery Oxygen Flow Rate Intake/Output Intake/Output: Intake & Output 11/12/24 11/13/24 11/14/24 11/15/24 23:59 23:59 23:59 23:59 Intake Total 2100 3465.8 254.2 Output Total 700 200 Balance 2100 2765.8 54.2 Meds/Results Medications: Active Medications Generic Name Dose Route Start Last Admin Trade Name Freq PRN Reason Stop Dose Admin Acetaminophen 650 mg 11/13/24 21:38 Acetaminophen 325 Mg Tablet PO Q8H PRN Pain Rated 1-3 Albuterol 2 puff 11/13/24 21:38 Albuterol Sulfate (*Sp) Aerosol 1 Puff INHALATION Q4H PRN Wheezing Artificial Tears 1 drop 11/13/24 21:58 Artificial Tears Ophth Soln 15 Ml Bottle EACH EYE QID PRN Dry Eye(s) Aspirin 81 mg 11/14/24 09:00 11/15/24 09:43 Aspirin 81 Mg Enteric Tablet PO Not Given DAILY BERNARDO Benzonatate 100 mg 11/13/24 21:38 Benzonatate 100 Mg Capsule PO TID PRN cough Brimonidine Tartrate 1 drop 11/14/24 06:00 11/15/24 15:25 Brimonidine Tartrate 0.2% Op Soln 5 Ml Btl EACH EYE 1 drop Q8HR BERNARDO Administration Brinzolamide 1 drop 11/14/24 06:00 11/15/24 15:25 Brinzolamide 1% Ophth Susp 10 Ml EACH EYE 1 drop Q8HR BERNARDO Administration Cholestyramine Resin 4 gm 11/14/24 10:00 11/15/24 14:18 Cholestyramine (W/ Sugar) 4 Gm Powd.Pack PO Not Given 1000,1300,1800 BERNARDO Dextrose 12.5 gm 11/13/24 21:30 Dextrose 50% 25 Gm/50 Ml Syringe IV PUSH PRN PRN Hypoglycemia Protocol Escitalopram Oxalate 15 mg 11/14/24 09:00 11/15/24 09:43 Escitalopram Oxalate 5 Mg Tablet PO Not Given QAM BERNARDO Fluticasone/Umeclidinium/Vilanterol 1 puff 11/14/24 08:00 11/15/24 07:35 Fluticasone/Umeclidin/Vilanter 100-62.5-25 Mcg Ellipta INHALATION 1 puff DAILYRT BERNARDO Administration Gabapentin 100 mg 11/14/24 09:00 11/15/24 14:18 Gabapentin 100 Mg Capsule PO Not Given TID BERNARDO Glucagon 1 mg 11/13/24 21:30 Glucagon For Inj 1 Mg Vial IM PRN PRN Hypoglycemia Protocol Glucose 15 gm 11/13/24 21:30 Glucose Oral Gel 15 Gm Of Glucse In 37.5 Gm Tube PO PRN PRN Hypoglycemia Protocol Guaifenesin/Dextromethorphan 10 ml 11/13/24 21:38 Guaifenesin/Dextromethorphan 10 Ml Udc PO Q4-6H PRN Cough Heparin Sodium (Porcine) 5,000 units 11/14/24 22:00 11/15/24 15:25 Heparin Sodium 5,000 Units/Ml Vial SUB-Q 5,000 units Q8HR BERNARDO Administration Sodium Chloride 1,000 mls @ 75 mls/hr 11/13/24 17:55 11/15/24 01:12 Normal Saline Iv IV CONT 75 mls/hr .[id number] BERNARDO Administration Dextrose 1,000 mls @ 100 mls/hr 11/13/24 21:30 Dextrose 5% 1,000 Ml IVPB PRN PRN Hypoglycemia Protocol Ceftriaxone Sodium 1 gm/ 50 mls @ 100 mls/hr 11/14/24 12:00 11/15/24 12:02 Sodium Chloride IVPB 100 mls/hr Q24H BERNARDO Administration Metronidazole 500 mg in 100 mls @ 100 mls/hr 11/14/24 12:00 11/15/24 15:24 Flagyl 500 Mg/Iso Soln 100 Ml IVPB 100 mls/hr Q8HR [facility] Administration Insulin Aspart 3 - 6 units 11/14/24 08:00 11/15/24 16:47 Insulin Aspart (*Bkc) 100 Units/Ml SUB-Q Not Given TIDWM [facility] Protocol Lidocaine 1 patch 11/14/24 09:00 11/15/24 09:43 Lidocaine 5% Patch TOPICAL Not Given DAILY BERNARDO Loperamide HCl 2 mg 11/13/24 21:38 Loperamide Hcl 2 Mg Capsule PO Q6H PRN Diarrhea Melatonin 5 mg 11/13/24 22:00 11/14/24 20:45 Melatonin 5 Mg Tablet PO Not Given [facility] Ondansetron HCl 4 mg 11/13/24 21:38 Ondansetron Hcl Odt 4 Mg Tablet PO Q4H PRN Nausea And Vomiting Oxycodone HCl 5 mg 11/13/24 21:38 Oxycodone Hcl (*Crx) 5 Mg Tab Ir PO QHS PRN Pain Rated 4-6 Psyllium Hydrophilic Mucilloid 1 packet 11/13/24 22:00 Psyllium Sugar Free Powder Packet PO DAILY PRN constipation Rosuvastatin Calcium 40 mg 11/13/24 22:00 11/14/24 20:45 Rosuvastatin 20 Mg Tablet PO Not Given QHS [facility] Senna 8.6 mg 11/13/24 21:38 Sennosides 8.6 Mg Tablet PO DAILY PRN Constipation Tamsulosin HCl 0.4 mg 11/14/24 09:00 11/15/24 09:43 Tamsulosin Hcl 0.4 Mg Capsule PO Not Given QAM [facility] Radiology Results: ITS Impressions Chest X-Ray 11/13/24 15:04 IMPRESSION: No focal consolidation. Mild perihilar bronchial wall thickening, findings suggestive of respiratory bronchiolitis. Chest/Abdomen/Pelvis CT 11/14/24 09:27 IMPRESSION: Bilateral renal calculi. Asymmetric mural thickening of the base of the bladder for which direct visualization is recommended. Findings which may represent partial distal bowel obstruction with significant air distention of the colon just before the anastomotic staple line and distal decompression. Significant gallbladder distention with trace surrounding inflammatory change. Bibasilar atelectasis. Renal Ultrasound 11/14/24 11:43 Impression: No definite abnormality seen. Visualization of the kidneys is somewhat suboptimal related to patient body habitus. Head CT 11/14/24 18:07 IMPRESSION: No acute intracranial findings. 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 Abdomen/Pelvis CT 11/15/24 09:13 IMPRESSION: 1. Bilateral nephrolithiasis with interval advancement of a 3-4 mm at least p artially obstructing stone now at the left ureterovesicular junction with mild left hydroureteronephrosis. 2. Likely intermittent/partial small bowel obstruction secondary to a volvulus with at least 360 degrees twist of the distalmost small bowel immediately proximal to ileocolic anastomosis with no interval change in mild dilation of a few loops of more proximal small bowel. 3. Prominent dilation of the gallbladder to 6.5 cm but without evident wall thickening or pericholecystic infiltrate stranding to more specifically suggest acute cholecystitis. Correlate with the right upper quadrant ultrasound or HIDA scan. 4. Very small right and trace left pleural effusions and minimal perihepatic ascites. Abdomen Ultrasound 11/15/24 09:16 IMPRESSION: Fatty infiltration of the liver. Hydropic, fluid-filled gallbladder with dependent stones suspected. Hepatobiliary Scan [facility] 11/15/24 15:34 IMPRESSION: 1. Normal hepatobiliary scan. Labs Labs: Laboratory Results - last 24 hr 11/14/24 11/15/24 11/15/24 20:22 04:02 07:28 WBC 9.9 RBC 3.65 L Hgb 10.2 L Hct 32.5 L MCV 89.0 MCH 27.9 MCHC 31.4 L RDW 15.4 H Plt Count 186 MPV 9.0 Immature Gran % (Auto) 1.8 H Neut % (Auto) 78.2 H Lymph % (Auto) 8.2 L [place] % (Auto) 9.6 H Eos % (Auto) 1.8 Baso % (Auto) 0.4 Lymph # (Auto) 0.81 L [place] # (Auto) 1.0 H Eos # (Auto) 0.2 Baso # (Auto) 0.0 Abs Immat Gran (auto) 0.18 H Absolute Neuts (auto) 7.7 H Absolute Nucleated RBC 0.000 Nucleated RBC % 0.0 Sodium 138 Potassium 4.6 Chloride 112 H Carbon Dioxide 14 L Anion Gap 12 BUN 61 H Creatinine 6.29 H Estim Creat Clear Calc 13 Estimated GFR 9 L Glucose 101 POC Capillary Glucose 109 H 96 Lactic Acid 0.7 Calcium 8.7 Magnesium 1.9 Total Bilirubin 0.2 AST 25 ALT 17 Alkaline Phosphatase 118 Ammonia Total Protein 6.1 L Albumin 3.0 L 11/15/24 11/15/24 11/15/24 11:21 12:35 15:55 WBC RBC Hgb Hct MCV MCH MCHC RDW Plt Count MPV Immature Gran % (Auto) Neut % (Auto) Lymph % (Auto) [place] % (Auto) Eos % (Auto) Baso % (Auto) Lymph # (Auto) [place] # (Auto) Eos # (Auto) Baso # (Auto) Abs Immat Gran (auto) Absolute Neuts (auto) Absolute Nucleated RBC Nucleated RBC % Sodium Potassium Chloride Carbon Dioxide Anion Gap BUN Creatinine Estim Creat Clear Calc Estimated GFR Glucose POC Capillary Glucose 107 H 89 Lactic Acid Calcium Magnesium Total Bilirubin AST ALT Alkaline Phosphatase Ammonia < 9 L Total Protein Albumin Quality VTE Prophylaxis VTE prophylaxis: mechanical ordered
[2024-11-16] VITALS (24 sets, daily range): BP systolic 124–155; BP diastolic 40–63; PULSE 58–74; RESP 12–23; TEMP 35.9–36.9; O2SAT 93–100
[2024-11-16 05:25] LABS: Hematocrit 30.5 % (42.0-52.0); Hemoglobin 9.6 g/dL (14.0-18.0); Immature Granulocyte Percent A 2.0 % (0-0.5); Lymphocytes Absolute Auto 0.82 K/mm3 (0.9-3.2); Mean Corpuscular HGB Conc 31.5 g/dl (32-36); Mean Corpuscular Hemoglobin 28.2 pg (26-34); Mean Corpuscular Volume 89.4 fl (80-100); Nucleated Red Blood Cells Absolute Auto 0.000 K/mm3 (0.0-0.012); Nucleated Red Blood Cells Perc 0.0 % (0.0-0.2); Platelet Count Result 201 k/mm3 (150-375); Red Blood Count 3.41 M/mm3 (4.6-6.20); White Blood Count 14.0 K/mm3 (4.5-10.0)
[2024-11-16 05:45] LABS: Alanine Aminotransferase 16 U/L (6-50); Albumin Level 2.8 g/dL (3.5-5.1); Alkaline Phosphatase 121 U/L (38-126); Anion Gap 13 mmol/L (4-12); Aspartate Amino Transferase 27 U/L (17-59); Bilirubin,Total 0.2 mg/dL (0.2-1.3); Blood Urea Nitrogen 70 mg/dL (9-20); Calcium 8.8 mg/dL (8.4-10.2); Carbon Dioxide 13 mmol/L (22-30); Chloride 115 mmol/L (98-107); Estimated CRCL calculation 11 ml/min; Estimated Glomerular Filt Rate 8; Glucose 91 mg/dL (65-110); Magnesium 1.8 mg/dL (1.6-2.3); Potassium 4.6 mmol/L (3.4-5.0); Sodium 141 mmol/L (137-145); Total Protein 5.9 g/dL (6.3-8.2)
[2024-11-16] MEDS: metroNIDAZOLE 500 MG/ISO 100ML 500 MG/100 ML BAG 100 MG IVPB ×3 (05:59→21:20)
[2024-11-16] MEDS: BRIMONIDINE TARTRATE 0.2% OP SOLN 5 ML BTL 1 DROP EACH EYE ×3 (06:00→21:20)
[2024-11-16] MEDS: BRINZOLAMIDE 1% OPHTH SUSP 10 ML 1 DROP EACH EYE ×3 (06:00→21:20)
--- NOTE | 2024-11-16 07:47 | WPDHPUPDATE1 ---
History and Physical Update Update Date/Time: 11/16/24 07:47 History and Physical has been reviewed, including an updated exam of the patient. There are NO changes in the patient's condition. Risks, benefits, and alternatives have been discussed and questions answered. Patient agrees to proceed with procedure. Proceed with cystoscopy, bilateral retrogrades, bilateral stent possible ureteroscopy
--- NOTE | 2024-11-16 07:54 | P.PNAN_ITS ---
Anes - Initial Pre Proc Eval Procedure: Operation Date: 11/16/24 09:00 Proposed Procedures p Cystoscopy, Bilateral Retrograde Pyelogram, Bilateral Ureteral Stent Placement, Possible Bilateral Ureteroscopy, Possible Stone Extraction, Possible Holmium Laser Lithotripsy - Bradly Mina MD Date/Time: 11/16/24 07:54 Surgeon: Juan Diego Castro MD Pre Op Diagnosis: Dehydration/Weakness/Arf Patient Data Age: 69 Gender: M Height: 1.8 m Weight: 105 kg Last Vital Signs Temp 36.8 C 11/16/24 03:27 Pulse 70 11/16/24 06:00 Resp 23 H 11/16/24 04:00 BP 124/43 L 11/16/24 03:27 Pulse Ox 93 11/16/24 04:00 O2 Del Method Nasal Cannula 11/16/24 04:00 O2 Flow Rate 3 11/16/24 04:00 FiO2 32 11/16/24 04:00 Allergies Allergy/AdvReac Type Severity Reaction Status Date / Time hydralazine AdvReac Vomiting Verified 11/13/24 14:12 lisinopril AdvReac Rash Verified 11/13/24 14:12 metformin AdvReac Diarrhea Verified 11/13/24 14:12 pioglitazone AdvReac Nausea Verified 11/13/24 14:12 simvastatin AdvReac Rash Verified 11/13/24 14:12 Home Medications ?Medication ?Instructions ?Recorded ?Confirmed ?Type acetaminophen 325 mg tablet 650 mg PO Q8H PRN Pain, Mild 11/07/23 11/13/24 History albuterol sulfate 90 mcg/actuation 2 puff inhalation Q4H PRN Wheezing 11/07/23 11/13/24 History aerosol inhaler aspirin 81 mg tablet,delayed 81 mg PO DAILY 11/07/23 11/13/24 History release cabergoline 0.5 mg tablet 0.5 mg PO 2XW 11/07/23 11/13/24 History carboxymethylcellulose sodium 0.5 1 drp EACH EYE QID PRN Dry Eyes 11/07/23 11/13/24 History % eye drops in a dropperette (Refresh Plus) carvedilol 3.125 mg tablet 3.125 mg PO BID 11/07/23 11/13/24 History dextromethorphan-guaifenesin 10 10 ml PO Q4-6H PRN Cough 11/07/23 11/13/24 History mg-100 mg/5 mL oral syrup escitalopram oxalate 20 mg tablet 15 mg PO QAM 11/07/23 11/13/24 History gabapentin 100 mg capsule 100 mg PO TID 11/07/23 11/13/24 History glipizide 5 mg tablet 5 mg PO QAM 11/07/23 11/13/24 History loperamide 2 mg capsule 2 mg PO Q6H PRN Diarrhea 11/07/23 11/13/24 History (Anti-Diarrheal (loperamide)) melatonin 5 mg tablet 5 mg PO HS 11/07/23 11/13/24 History ondansetron 4 mg disintegrating 4 mg PO Q4H PRN Nausea And Vomiting 11/07/23 11/13/24 History tablet rosuvastatin 40 mg tablet 40 mg PO QHS 11/07/23 11/13/24 History sennosides 8.6 mg tablet (Senokot) 8.6 mg PO PRN PRN Constipation 11/07/23 11/13/24 History tamsulosin 0.4 mg capsule 0.4 mg PO QAM 11/07/23 11/13/24 History tiotropium bromide 2.5 2 puff inhalation QAM 11/07/23 11/13/24 History mcg/actuation mist for inhalation (Spiriva Respimat) benzonatate 100 mg capsule 100 mg PO TID PRN cough 05/16/24 11/13/24 History brinzolamide 1 %-brimonidine 0.2 % 1 drp EACH EYE TID 05/18/24 11/13/24 History eye drops,suspension (Simbrinza) budesonide 160 mcg-glycopyr 9 2 inh inhalation BID 05/18/24 11/13/24 History mcg-formot 4.8 mcg/actuation HFA inhaler (Breztri Aerosphere) oxycodone 5 mg tablet 5 mg PO QHS pain 05/18/24 11/13/24 History insulin aspart U-100 100 unit/mL 1 sliding scale dose subcut 05/20/24 11/13/24 Rx (3 mL) subcutaneous pen (Novolog USEASDIRECTD #15 mL FlexPen U-100 Insulin aspart) insulin glargine 100 unit/mL 15 unit (0.15 mL) subcut HS 15 05/20/24 11/13/24 Rx subcutaneous solution (Lantus days #2.25 mL U-100 Insulin) cholestyramine 4 gram oral powder 4 g PO TID 11/13/24 11/13/24 History lidocaine 5 % topical patch 1 patch topical DAILY back pain 11/13/24 11/13/24 History psyllium husk 0.4 gram capsule 0.4 g PO DAILY PRN constipation 11/13/24 11/13/24 History (Fiber (psyllium husk)) Laboratory Tests 11/15/24 11/15/24 11/15/24 11:21 12:35 15:55 WBC RBC Hgb Hct MCV MCH MCHC RDW Plt Count MPV Immature Gran % (Auto) Neut % (Auto) Lymph % (Auto) [place] % (Auto) Eos % (Auto) Baso % (Auto) Lymph # (Auto) [place] # (Auto) Eos # (Auto) Baso # (Auto) Abs Immat Gran (auto) Absolute Neuts (auto) Absolute Nucleated RBC Nucleated RBC % Sodium Potassium Chloride Carbon Dioxide Anion Gap BUN Creatinine Estim Creat Clear Calc Estimated GFR Glucose POC Capillary Glucose 107 H mg/dl 89 mg/dl (65-105) (65-105) Calcium Magnesium Total Bilirubin AST ALT Alkaline Phosphatase Ammonia < 9 L umol/L (9-30) Total Protein Albumin 11/15/24 11/16/24 11/16/24 20:24 04:36 07:27 WBC 14.0 H K/mm3 (4.5-10.0) RBC 3.41 L M/mm3 (4.6-6.20) Hgb 9.6 L g/dL (14.0-18.0) Hct 30.5 L % (42.0-52.0) MCV 89.4 fl (80-100) MCH 28.2 pg (26-34) MCHC 31.5 L g/dl (32-36) RDW 15.7 H % (11.5-14.5) Plt Count 201 k/mm3 (150-375) MPV 9.0 fl (7.4-10.4) Immature Gran % (Auto) 2.0 H % (0-0.5) Neut % (Auto) 82.0 H % (45.5-73.1) Lymph % (Auto) 5.9 L % (18.3-44.2) [place] % (Auto) 8.6 H % (2.6-8.5) Eos % (Auto) 1.1 % (0-4.4) Baso % (Auto) 0.4 % (0.2-1.2) Lymph # (Auto) 0.82 L K/mm3 (0.9-3.2) [place] # (Auto) 1.2 H K/mm3 (0.1-0.6) Eos # (Auto) 0.2 K/mm3 (0-0.3) Baso # (Auto) 0.1 K/mm3 (0.0-0.1) Abs Immat Gran (auto) 0.28 H K/mm3 (0.00-0.031) Absolute Neuts (auto) 11.5 H K/mm3 (1.3-6.7) Absolute Nucleated RBC 0.000 K/mm3 (0.0-0.012) Nucleated RBC % 0.0 % (0.0-0.2) Sodium 141 mmol/L (137-145) Potassium 4.6 mmol/L (3.4-5.0) Chloride 115 H mmol/L (98-107) Carbon Dioxide 13 L mmol/L (22-30) Anion Gap 13 H mmol/L (4-12) BUN 70 H mg/dL (9-20) Creatinine 7.27 H mg/dL (0.7-1.3) Estim Creat Clear Calc 11 ml/min Estimated GFR 8 L (59 - ) Glucose 91 mg/dL (65-110) POC Capillary Glucose 105 mg/dl 85 mg/dl (65-105) (65-105) Calcium 8.8 mg/dL (8.4-10.2) Magnesium 1.8 mg/dL (1.6-2.3) Total Bilirubin 0.2 mg/dL (0.2-1.3) AST 27 U/L (17-59) ALT 16 U/L (6-50) Alkaline Phosphatase 121 U/L (38-126) Ammonia Total Protein 5.9 L g/dL (6.3-8.2) Albumin 2.8 L g/dL (3.5-5.1) Patient hx anesthesia problems: none Family hx anesthesia problems: none Results Review: All pre-operative results and documents have been reviewed as part of the pre- operative evaluation. PENDING SALE TO [facility] Past Medical History Medical History Coronary artery disease Benign prostatic hyperplasia Tobacco abuse Chronic obstructive pulmonary disease Obstructive sleep apnea Intolerant of CPAP Hypertension Type 2 diabetes mellitus Cerebrovascular accident Surgical History Surgical History History of coronary artery stent placement History of cardiac catheterization History of partial colectomy Family History Family History Other Family history non-contributory Social History Social History Social History: Surrogate medical decision maker: Clarita Hobbs, mother. Code status: Full code. Smoking packs per day: 1 Smoking cigarettes per day: 20.0 Years smoked: 50 Smoking pack-years: 50.00 Smoking status: Current every day smoker Tobacco type: cigarettes Alcohol intake: former Substance use: never Do You Feel Safe in your Home?: Yes Lack of Transportation: No Lack of Food: Never True Current Housing: I Have Housing Concerned About Future Housing: No Difficulty Paying Gas/Electric Bills: No Difficulty Paying for Meds: No Currently Unemployed: No Education: High School Diploma/GED Difficulty w/ Childcare or Family Care: No Additional living arrangements comments: Resident at [facility]. 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 Spiritual care concerns: No Anes - Eval Final PreProcedure Day of Procedure 11/16/24 07:54 Patient weight: obese Heart: regular rate and rhythm Lungs: decreased breath sounds Neurological: unresponsive ASA classification: IV Emergent: no Anesthetic plan: proceed Anesthesia type and monitoring: general LMA and standard monitoring Results Review: All pre-operative results and documents have been reviewed as part of the pre- operative evaluation. Informed Consent: The patient's anesthetic plan and its attendant risks and benefits were discussed with the patient/family/POA. Questions were solicited and answers provided to the satisfaction of the patient/family/POA.
--- NOTE | 2024-11-16 07:56 | P.PNUR_ITS ---
Progress Note: A&P Assessment and Plan (1) Acute renal insufficiency: Code(s): N28.9 - Disorder of kidney and ureter, unspecified Status: Acute Assessment and Plan: Etiology again multifactorial. Given a mildly obstructing left ureteral calculus and right renal stones with rising creatinine level will proceed with cystoscopy bilateral retrogrades, bilateral stents, possible ureteroscopy (2) Bilateral nephrolithiasis: Code(s): N20.0 - Calculus of kidney Status: Acute Assessment and Plan: See above (3) Hydroureteronephrosis: Code(s): N13.30 - Unspecified hydronephrosis Status: Acute Assessment and Plan: See above Subjective Subjective Date/Time Seen: 11/16/24 07:56 Principal diagnosis: Renal insufficiency with bilateral renal calculi Interval history: Patient still not communicative and his creatinine level has risen to 7. CT scan reveals left ureteral calculus has migrated further distally with mild obstruction. Also has right renal calculi. Review of Systems Review of Systems: All systems reviewed & are unremarkable except as noted in HPI and below Objective Data Vital Signs Vital Signs: Vital Signs - 24 hr 11/15/24 08:00 11/15/24 08:00 11/15/24 08:07 Temperature 36.4 C L Pulse Rate 60 60 Respiratory Rate 22 H Blood Pressure 119/42 L Pulse Oximetry 97 98 Oxygen Delivery Nasal Cannula Oxygen Flow Rate 3 Fraction of Inspired Oxygen 11/15/24 10:00 11/15/24 11:56 11/15/24 12:00 Temperature 36.7 C Pulse Rate 59 L 63 64 Respiratory Rate 20 Blood Pressure 119/35 L Pulse Oximetry 97 Oxygen Delivery Oxygen Flow Rate Fraction of Inspired Oxygen 11/15/24 12:00 11/15/24 14:00 11/15/24 16:00 Temperature Pulse Rate 63 61 Respiratory Rate Blood Pressure Pulse Oximetry 100 Oxygen Delivery Nasal Cannula Oxygen Flow Rate 3 Fraction of Inspired Oxygen 11/15/24 16:00 11/15/24 16:36 11/15/24 18:00 Temperature 37.1 C Pulse Rate 61 61 Respiratory Rate 24 H Blood Pressure 133/45 L Pulse Oximetry 98 98 Oxygen Delivery Nasal Cannula Oxygen Flow Rate 3 Fraction of Inspired Oxygen 11/15/24 19:41 11/15/24 20:00 11/15/24 20:00 Temperature 36.8 C Pulse Rate 69 108 H 108 H Respiratory Rate 22 H 23 H Blood Pressure 155/42 H Pulse Oximetry 96 93 Oxygen Delivery Nasal Cannula Oxygen Flow Rate 3 Fraction of Inspired Oxygen 32 11/15/24 22:00 11/15/24 22:01 11/16/24 00:00 Temperature Pulse Rate 78 69 74 Respiratory Rate 20 23 H Blood Pressure Pulse Oximetry 97 93 Oxygen Delivery Nasal Cannula Nasal Cannula Oxygen Flow Rate 3 3 Fraction of Inspired Oxygen 32 32 11/16/24 00:00 11/16/24 00:10 11/16/24 02:00 Temperature Pulse Rate 74 73 74 Respiratory Rate 23 H Blood Pressure 132/46 L Pulse Oximetry 93 Oxygen Delivery Oxygen Flow Rate Fraction of Inspired Oxygen 11/16/24 03:27 11/16/24 04:00 11/16/24 04:00 Temperature 36.8 C Pulse Rate 71 72 72 Respiratory Rate 23 H 23 H Blood Pressure 124/43 L Pulse Oximetry 93 93 Oxygen Delivery Nasal Cannula Oxygen Flow Rate 3 Fraction of Inspired Oxygen 32 11/16/24 06:00 Temperature Pulse Rate 70 Respiratory Rate Blood Pressure Pulse Oximetry Oxygen Delivery Oxygen Flow Rate Fraction of Inspired Oxygen Intake/Output Intake/Output: Intake & Output 11/13/24 11/14/24 11/15/24 11/16/24 23:59 23:59 23:59 23:59 Intake Total 2100 3465.8 1454.2 Output Total 700 400 350 Balance 2100 2765.8 1054.2 -350 Meds/Results Medications: Active Medications Generic Name Dose Route Start Last Admin Trade Name Freq PRN Reason Stop Dose Admin Acetaminophen 650 mg 11/13/24 21:38 Acetaminophen 325 Mg Tablet PO Q8H PRN Pain Rated 1-3 Albuterol 2 puff 11/13/24 21:38 Albuterol Sulfate (*Sp) Aerosol 1 Puff INHALATION Q4H PRN Wheezing Artificial Tears 1 drop 11/13/24 21:58 Artificial Tears Ophth Soln 15 Ml Bottle EACH EYE QID PRN Dry Eye(s) Aspirin 81 mg 11/14/24 09:00 11/15/24 09:43 Aspirin 81 Mg Enteric Tablet PO Not Given DAILY BERNARDO Benzonatate 100 mg 11/13/24 21:38 Benzonatate 100 Mg Capsule PO TID PRN cough Brimonidine Tartrate 1 drop 11/14/24 06:00 11/16/24 06:00 Brimonidine Tartrate 0.2% Op Soln 5 Ml Btl EACH EYE 1 drop Q8HR BERNARDO Administration Brinzolamide 1 drop 11/14/24 06:00 11/16/24 06:00 Brinzolamide 1% Ophth Susp 10 Ml EACH EYE 1 drop Q8HR BERNARDO Administration Cholestyramine Resin 4 gm 11/14/24 10:00 11/15/24 17:48 Cholestyramine (W/ Sugar) 4 Gm Powd.Pack PO Not Given 1000,1300,1800 BERNARDO Dextrose 12.5 gm 11/13/24 21:30 Dextrose 50% 25 Gm/50 Ml Syringe IV PUSH PRN PRN Hypoglycemia Protocol Escitalopram Oxalate 15 mg 11/14/24 09:00 11/15/24 09:43 Escitalopram Oxalate 5 Mg Tablet PO Not Given QAM BERNARDO Fentanyl Citrate 25 mcg 11/16/24 07:51 Fentanyl Citrate Inj (*Crx) 100 Mcg/2 Ml Vial IV PUSH Q2M PRN Pain Fluticasone/Umeclidinium/Vilanterol 1 puff 11/14/24 08:00 11/15/24 07:35 Fluticasone/Umeclidin/Vilanter 100-62.5-25 Mcg Ellipta INHALATION 1 puff DAILYRT BERNARDO Administration Gabapentin 100 mg 11/14/24 09:00 11/15/24 17:48 Gabapentin 100 Mg Capsule PO Not Given TID BERNARDO Glucagon 1 mg 11/13/24 21:30 Glucagon For Inj 1 Mg Vial IM PRN PRN Hypoglycemia Protocol Glucose 15 gm 11/13/24 21:30 Glucose Oral Gel 15 Gm Of Glucse In 37.5 Gm Tube PO PRN PRN Hypoglycemia Protocol Guaifenesin/Dextromethorphan 10 ml 11/13/24 21:38 Guaifenesin/Dextromethorphan 10 Ml Udc PO Q4-6H PRN Cough Heparin Sodium (Porcine) 5,000 units 11/14/24 22:00 11/16/24 06:00 Heparin Sodium 5,000 Units/Ml Vial SUB-Q 5,000 units Q8HR BERNARDO Administration Sodium Chloride 1,000 mls @ 75 mls/hr 11/13/24 17:55 11/16/24 00:57 Normal Saline Iv IV CONT Not Given .[id number] [facility]ERNARDO Dextrose 1,000 mls @ 100 mls/hr 11/13/24 21:30 Dextrose 5% 1,000 Ml IVPB PRN PRN Hypoglycemia Protocol Ceftriaxone Sodium 1 gm/ 50 mls @ 100 mls/hr 11/14/24 12:00 11/15/24 12:02 Sodium Chloride IVPB 100 mls/hr Q24H B[facility]ARDO Administration Metronidazole 500 mg in 100 mls @ 100 mls/hr 11/14/24 12:00 11/16/24 05:59 Flagyl 500 Mg/Iso Soln 100 Ml IVPB 100 mls/hr Q8HR BERNARDO Administration Lactated Ringer's 1,000 mls @ 30 mls/hr 11/16/24 06:45 Lr - Lactated Ringers Iv IV CONT .Q24H [facility]O Lactated Ringer's 1,000 mls @ 30 mls/hr 11/16/24 07:55 Lr - Lactated Ringers Iv IV CONT .Q24H [facility]ARDO Lactated Ringer's 1,000 mls @ 30 mls/hr 11/16/24 07:55 Lr - Lactated Ringers Iv IV CONT .Q24H [facility] Insulin Aspart 3 - 6 units 11/14/24 08:00 11/15/24 16:47 Insulin Aspart (*Bkc) 100 Units/Ml SUB-Q Not Given TIDWM [facility] Protocol Lidocaine 1 patch 11/14/24 09:00 11/15/24 09:43 Lidocaine 5% Patch TOPICAL Not Given DAILY [facility] Loperamide HCl 2 mg 11/13/24 21:38 Loperamide Hcl 2 Mg Capsule PO Q6H PRN Diarrhea Melatonin 5 mg 11/13/24 22:00 11/15/24 21:42 Melatonin 5 Mg Tablet PO Not Given HS [facility] Ondansetron HCl 4 mg 11/13/24 21:38 Ondansetron Hcl Odt 4 Mg Tablet PO Q4H PRN Nausea And Vomiting Ondansetron HCl 4 mg 11/16/24 07:51 Ondansetron Inj 4 Mg/2 Ml Vial IV PUSH ONCE PRN Nausea Oxycodone HCl 5 mg 11/13/24 21:38 Oxycodone Hcl (*Crx) 5 Mg Tab Ir PO QHS PRN Pain Rated 4-6 Psyllium Hydrophilic Mucilloid 1 packet 11/13/24 22:00 Psyllium Sugar Free Powder Packet PO DAILY PRN constipation Rosuvastatin Calcium 40 mg 11/13/24 22:00 11/15/24 21:42 Rosuvastatin 20 Mg Tablet PO Not Given QHS [facility] Senna 8.6 mg 11/13/24 21:38 Sennosides 8.6 Mg Tablet PO DAILY PRN Constipation Tamsulosin HCl 0.4 mg 11/14/24 09:00 11/15/24 09:43 Tamsulosin Hcl 0.4 Mg Capsule PO Not Given [facility] [place] [facility] Results: ITS Impressions Chest X-Ray 11/13/24 15:04 IMPRESSION: No focal consolidation. Mild perihilar bronchial wall thickening, findings suggestive of respiratory bronchiolitis. Chest/Abdomen/Pelvis CT 11/14/24 09:27 IMPRESSION: Bilateral renal calculi. Asymmetric mural thickening of the base of the bladder for which direct visualization is recommended. Findings which may represent partial distal bowel obstruction with significant air distention of the colon just before the anastomotic staple line and distal decompression. Significant gallbladder distention with trace surrounding inflammatory change. Bibasilar atelectasis. Renal Ultrasound 11/14/24 11:43 Impression: No definite abnormality seen. Visualization of the kidneys is somewhat suboptimal related to patient body habitus. Head CT 11/14/24 18:07 IMPRESSION: No acute intracranial findings. 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 Abdomen/Pelvis CT 11/15/24 09:13 IMPRESSION: 1. Bilateral nephrolithiasis with interval advancement of a 3-4 mm at least partially obstructing stone now at the left ureterovesicular junction with mild left hydroureteronephrosis. 2. Likely intermittent/partial small bowel obstruction secondary to a volvulus with at least 360 degrees twist of the distalmost small bowel immediately proximal to ileocolic anastomosis with no interval change in mild dilation of a few loops of more proximal small bowel. 3. Prominent dilation of the gallbladder to 6.5 cm but without evident wall thickening or pericholecystic infiltrate stranding to more specifically suggest acute cholecystitis. Correlate with the right upper quadrant ultrasound or HIDA scan. 4. Very small right and trace left pleural effusions and minimal perihepatic ascites. Abdomen Ultrasound 11/15/24 09:16 IMPRESSION: Fatty infiltration of the liver. Hydropic, fluid-filled gallbladder with dependent stones suspected. Hepatobiliary Scan Nuclear [facility] 11/15/24 15:34 IMPRESSION: 1. Normal hepatobiliary scan. Abdomen X-Ray 11/15/24 18:37 IMPRESSION: Nasogastric tube projects over the left upper quadrant, as detailed above. Labs Labs: Laboratory Results - last 24 hr 11/15/24 11/15/24 11/15/24 11:21 12:35 15:55 WBC RBC Hgb Hct MCV MCH MCHC RDW Plt Count MPV Immature Gran % (Auto) Neut % (Auto) Lymph % (Auto) [place] % (Auto) Eos % (Auto) Baso % (Auto) Lymph # (Auto) [place] # (Auto) Eos # (Auto) Baso # (Auto) Abs Immat Gran (auto) Absolute Neuts (auto) Absolute Nucleated RBC Nucleated RBC % Sodium Potassium Chloride Carbon Dioxide Anion Gap BUN Creatinine Estim Creat Clear Calc Estimated GFR Glucose POC Capillary Glucose 107 H 89 Calcium Magnesium Total Bilirubin AST ALT Alkaline Phosphatase Ammonia < 9 L Total Protein Albumin 11/15/24 11/16/24 11/16/24 20:24 04:36 07:27 WBC 14.0 H RBC 3.41 L Hgb 9.6 L Hct 30.5 L MCV 89.4 MCH 28.2 MCHC 31.5 L RDW 15.7 H Plt Count 201 MPV 9.0 Immature Gran % (Auto) 2.0 H Neut % (Auto) 82.0 H Lymph % (Auto) 5.9 L [place] % (Auto) 8.6 H Eos % (Auto) 1.1 Baso % (Auto) 0.4 Lymph # (Auto) 0.82 L [place] # (Auto) 1.2 H Eos # (Auto) 0.2 Baso # (Auto) 0.1 Abs Immat Gran (auto) 0.28 H Absolute Neuts (auto) 11.5 H Absolute Nucleated RBC 0.000 Nucleated RBC % 0.0 Sodium 141 Potassium 4.6 Chloride 115 H Carbon Dioxide 13 L Anion Gap 13 H BUN 70 H Creatinine 7.27 H Estim Creat Clear Calc 11 Estimated GFR 8 L Glucose 91 POC Capillary Glucose 105 85 Calcium 8.8 Magnesium 1.8 Total Bilirubin 0.2 AST 27 ALT 16 Alkaline Phosphatase 121 Ammonia Total Protein 5.9 L Albumin 2.8 L
[2024-11-16] MEDS: LACTATED RINGERS 1,000 ML 30 ML IV CONT (08:00)
[2024-11-16] MEDS: LIDOCAINE 2% GEL UROJET 10 ML PKG MUCOUS MEM (08:39)
--- NOTE | 2024-11-16 08:41 | S_PTH ---
PATIENT: Brent Higginbotham LOC: [id number] U#:[id number] AGE/SX: 69/M ROOM: 306 RE11/13/[address]: Eber Delgado MD : [id number] BED: 02 DIS: 11/24/2024 SPEC #: [id number] RECD: 11/16/24 13:04 STATUS: SAHARA RETrevor #: [id number] PEPE: 11/16/24 08:[address]: Leopoldo,Bradly Urias DEPT: [facility] Surgical RECD BY: Kiki Martines ENTERED: 11/16/24 13:04 SP TYPE: Surgical OTHR DR: MD Pat Thacker MD Riaz Naseer, MD Gina M. Vernace, DO Anam Daniel, Tissues: A - Stone Procedures: Gross Exam Level 1 Crystalline Analysis
--- NOTE | 2024-11-16 08:43 | PCNEURO ---
Patient is currently in a procedure until closer to noon. Will attempt EEG after returning.
--- NOTE | 2024-11-16 08:53 | W.PM.PROC2 ---
Procedure Note - Detailed Date of Procedure 11/16/24 Pre-op Diagnosis Acute renal failure, bilateral renal calculi, left ureteral calculus, left hydronephrosis Post-op Diagnosis Same Procedure Performed Cystoscopy, bilateral retrogrades, left ureteroscopy, stone extraction, bilateral ureteral stent placement 4.8 [place] contour, complex [place] catheter placement Surgeon Bradly Mina MD Anesthesia General Description of Procedure Patient was taken to the operative suite correctly identified. Once anesthesia was obtained was placed in dorsal lithotomy position and prepped and draped usual sterile fashion. Nineteen [place] scope was inserted in bladder. There were no urethral strictures. Prostate is nonobstructive. Upon entering the bladder there were no tumors noted. A small stone was noted in the bladder which may have been recent passage of the ureteral stone. We went ahead and placed a wire the left ureteral orifice and dilated with an 8/10 dilator. Rigid ureteral scope was then inserted. There were no stones noted in the ureter. Pyelogram was performed. There was no significant hydronephrosis. Given his rising creatinine we did go ahead placed a 4.8 [place] contour stent with the proximal end coiled in the renal pelvis and the distal in the bladder. A pyelogram was then performed on the right side. Again there was no significant hydronephrosis but again given his deteriorating renal function we went ahead and placed a 4.8 [place] contour stent with the proximal end in the renal pelvis distal in the bladder. 2% viscous lidocaine was inserted into the urethra. Sixteen [place] was placed with 10 cc in the balloon. He was taken recovery room in stable condition. Will see how he does clinically and plan on stent removals in the future. Will make a decision regarding the right renal calculi. This completes dictation. Please send a copy of op note to my office. Estimated Blood Loss 0 Drains Yes Packing No Pathology Yes Complications No immediate complications Condition Stable Disposition PACU
--- NOTE | 2024-11-16 11:06 | P.PNGS_ITS ---
Progress Note: A&P Assessment and Plan (1) Dilated gallbladder: Code(s): K82.8 - Other specified diseases of gallbladder Status: Acute Assessment and Plan: HIDA scan normal. No concern for cholecystitis. No surgical intervention necessary for this issue. (2) SBO (small bowel obstruction): Code(s): K56.609 - Unspecified intestinal obstruction, unspecified as to partial versus complete obstruction Status: Acute Assessment and Plan: Still no BM. Mildly distended abdomen unchanged from yesterday. NG tube in place and drained roughly 100 mL overnight. Scant dark brown fluid present upon visit today. Started on prophylactic protonix. Continue bowel rest. Consider contrast enema to assess for anastomotic stricture. Will discuss with surgeon. (3) Hypertension: Qualifiers: Hypertension type: primary hypertension Qualified Code(s): I10 - Essential (primary) hypertension Code(s): I10 - Essential (primary) hypertension Status: Chronic (4) Coronary artery disease: Code(s): I25.10 - Atherosclerotic heart disease of [place] coronary artery without angina pectoris Status: Acute (5) Type 2 diabetes mellitus: Qualifiers: Diabetes mellitus prison insulin use: with prison use Diabetes mellitus complication status: with hypoglycemia Diabetes mellitus complication detail: without coma Qualified Code(s): E11.649 - Type 2 diabetes mellitus with hypoglycemia without coma; Z79.4 - FPC (current) use of insulin Code(s): E11.9 - Type 2 diabetes mellitus without complications Status: Chronic (6) Acute kidney injury: Code(s): N17.9 - Acute kidney failure, unspecified Status: Acute Assessment and Plan: Nephrology and urology following. Renal ultrasound did not demonstrate any definite abnormality. (7) Chronic obstructive pulmonary disease: Code(s): J44.9 - Chronic obstructive pulmonary disease, unspecified Status: Acute (8) Obstructive sleep apnea: Code(s): G47.33 - Obstructive sleep apnea (adult) (pediatric) Status: Acute Plan Discussed patient's case and plan of care with Dr. Daniel. Subjective Subjective Date/Time Seen: 11/16/24 11:06 Patient reports: no new complaints and no bowel movement Interval history: Patient very somnolent today. Mother is at bedside and states that he is normally A&Ox4. WBC up to 14.0 from 9.9 yesterday. BUN and Cr continue to increase. NG tube placed yesterday and 100 mL output charted. Still no BM. Exam GI: Inspection: distended Auscultation: normal bowel sounds Other: Patient still mildly distended. Patient did not express any signs of discomfort with abdominal palpation. Bowel sounds present. NG with small amount of brown bilious fluid. Objective Data Vital Signs Vital Signs: Vital Signs - 24 hr 11/15/24 11:56 11/15/24 12:00 11/15/24 12:00 Temperature 98.1 F Pulse Rate 63 64 Respiratory Rate 20 Blood Pressure 119/35 L Pulse Oximetry 97 100 Oxygen Delivery Nasal Cannula Oxygen Flow Rate 3 Fraction of Inspired Oxygen 11/15/24 14:00 11/15/24 16:00 11/15/24 16:00 Temperature Pulse Rate 63 61 Respiratory Rate Blood Pressure Pulse Oximetry 98 Oxygen Delivery Nasal Cannula Oxygen Flow Rate 3 Fraction of Inspired Oxygen 11/15/24 16:36 11/15/24 18:00 11/15/24 19:41 Temperature 98.7 F 98.2 F Pulse Rate 61 61 69 Respiratory Rate 24 H 22 H Blood Pressure 133/45 L 155/42 H Pulse Oximetry 98 96 Oxygen Delivery Oxygen Flow Rate Fraction of Inspired Oxygen 11/15/24 20:00 11/15/24 20:00 11/15/24 22:00 Temperature Pulse Rate 108 H 108 H 78 Respiratory Rate 23 H Blood Pressure Pulse Oximetry 93 Oxygen Delivery Nasal Cannula Oxygen Flow Rate 3 Fraction of Inspired Oxygen 32 11/15/24 22:01 11/16/24 00:00 11/16/24 00:00 Temperature Pulse Rate 69 74 74 Respiratory Rate 20 23 H Blood Pressure Pulse Oximetry 97 93 Oxygen Delivery Nasal Cannula Nasal Cannula Oxygen Flow Rate 3 3 Fraction of Inspired Oxygen 32 32 11/16/24 00:10 11/16/24 02:00 11/16/24 03:27 Temperature 98.3 F Pulse Rate 73 74 71 Respiratory Rate 23 H 23 H Blood Pressure 132/46 L 124/43 L Pulse Oximetry 93 93 Oxygen Delivery Oxygen Flow Rate Fraction of Inspired Oxygen 11/16/24 04:00 11/16/24 04:00 11/16/24 06:00 Temperature Pulse Rate 72 72 70 Respiratory Rate 23 H Blood Pressure Pulse Oximetry 93 Oxygen Delivery Nasal Cannula Oxygen Flow Rate 3 Fraction of Inspired Oxygen 32 11/16/24 07:51 11/16/24 08:00 11/16/24 09:00 Temperature 98.4 F 97.8 F 97.5 F L Pulse Rate 64 64 67 Respiratory Rate 16 20 14 Blood Pressure 134/41 L 128/40 L 137/51 L Pulse Oximetry 100 97 100 Oxygen Delivery High Flow Nasal Cannula Simple Face Mask Oxygen Flow Rate 3 6 Fraction of Inspired Oxygen 11/16/24 09:15 11/16/24 09:30 11/16/24 09:45 Temperature Pulse Rate 63 65 67 Respiratory Rate 14 14 14 Blood Pressure 130/56 L 142/54 H 135/58 L Pulse Oximetry 100 100 100 Oxygen Delivery Simple Face Mask Nasal Cannula Nasal Cannula Oxygen Flow Rate 6 3 3 Fraction of Inspired Oxygen 11/16/24 10:00 11/16/24 10:30 11/16/24 10:30 Temperature 97.2 F L Pulse Rate 67 68 Respiratory Rate 14 Blood Pressure 155/45 H Pulse Oximetry 100 99 Oxygen Delivery Nasal Cannula Nasal Cannula Oxygen Flow Rate 3 3 Fraction of Inspired Oxygen Intake/Output Intake/Output: Intake & Output 11/13/24 11/14/24 11/15/24 11/16/24 23:59 23:59 23:59 23:59 Intake Total 2100 3465.8 1454.2 50 Output Total 700 400 365 Balance 2100 2765.8 1054.2 -315 Meds/Results Medications: Active Medications Generic Name Dose Route Start Last Admin Trade Name Freq PRN Reason Stop Dose Admin Acetaminophen 650 mg 11/13/24 21:38 Acetaminophen 325 Mg Tablet PO Q8H PRN Pain Rated 1-3 Albuterol 2 puff 11/13/24 21:38 Albuterol Sulfate (*Sp) Aerosol 1 Puff INHALATION Q4H PRN Wheezing Artificial Tears 1 drop 11/13/24 21:58 Artificial Tears Ophth Soln 15 Ml Bottle EACH EYE QID PRN Dry Eye(s) Aspirin 81 mg 11/14/24 09:00 11/15/24 09:43 Aspirin 81 Mg Enteric Tablet PO Not Given DAILY BERNARDO Benzonatate 100 mg 11/13/24 21:38 Benzonatate 100 Mg Capsule PO TID PRN cough Brimonidine Tartrate 1 drop 11/14/24 06:00 11/16/24 06:00 Brimonidine Tartrate 0.2% Op Soln 5 Ml Btl EACH EYE 1 drop Q8HR BERNARDO Administration Brinzolamide 1 drop 11/14/24 06:00 11/16/24 06:00 Brinzolamide 1% Ophth Susp 10 Ml EACH EYE 1 drop Q8HR BERNARDO Administration Cholestyramine Resin 4 gm 11/14/24 10:00 11/15/24 17:48 Cholestyramine (W/ Sugar) 4 Gm Powd.Pack PO Not Given 1000,1300,1800 BERNARDO Dextrose 12.5 gm 11/13/24 21:30 Dextrose 50% 25 Gm/50 Ml Syringe IV PUSH PRN PRN Hypoglycemia Protocol Escitalopram Oxalate 15 mg 11/14/24 09:00 11/15/24 09:43 Escitalopram Oxalate 5 Mg Tablet PO Not Given QAM BERNARDO Fluticasone/Umeclidinium/Vilanterol 1 puff 11/14/24 08:00 11/16/24 08:04 Fluticasone/Umeclidin/Vilanter 100-62.5-25 Mcg Ellipta INHALATION Not Given DAILYRT BERNARDO Gabapentin 100 mg 11/14/24 09:00 11/15/24 17:48 Gabapentin 100 Mg Capsule PO Not Given TID BERNARDO Glucagon 1 mg 11/13/24 21:30 Glucagon For Inj 1 Mg Vial IM PRN PRN Hypoglycemia Protocol Glucose 15 gm 11/13/24 21:30 Glucose Oral Gel 15 Gm Of Glucse In 37.5 Gm Tube PO PRN PRN Hypoglycemia Protocol Guaifenesin/Dextromethorphan 10 ml 11/13/24 21:38 Guaifenesin/Dextromethorphan 10 Ml Udc PO Q4-6H PRN Cough Heparin Sodium (Porcine) 5,000 units 11/14/24 22:00 11/16/24 06:00 Heparin Sodium 5,000 Units/Ml Vial SUB-Q 5,000 units Q8HR BERNARDO Administration Sodium Chloride 1,000 mls @ 75 mls/hr 11/13/24 17:55 11/16/24 00:57 Normal Saline Iv IV CONT Not Given .[id number] BERNARDO Dextrose 1,000 mls @ 100 mls/hr 11/13/24 21:30 Dextrose 5% 1,000 Ml IVPB PRN PRN Hypoglycemia Protocol Ceftriaxone Sodium 1 gm/ 50 mls @ 100 mls/hr 11/14/24 12:00 11/15/24 12:02 Sodium Chloride IVPB 100 mls/hr Q24H BERNARDO Administration Metronidazole 500 mg in 100 mls @ 100 mls/hr 11/14/24 12:00 11/16/24 05:59 Flagyl 500 Mg/Iso Soln 100 Ml IVPB 100 mls/hr Q8HR BERNARDO Administration Insulin Aspart 3 - 6 units 11/14/24 08:00 11/15/24 16:47 Insulin Aspart (*Bkc) 100 Units/Ml SUB-Q Not Given TIDWM [facility] Protocol Lidocaine 1 patch 11/14/24 09:00 11/15/24 09:43 Lidocaine 5% Patch TOPICAL Not Given DAILY BERNARDO Loperamide HCl 2 mg 11/13/24 21:38 Loperamide Hcl 2 Mg Capsule PO Q6H PRN Diarrhea Melatonin 5 mg 11/13/24 22:00 11/15/24 21:42 Melatonin 5 Mg Tablet PO Not Given HS [facility] Ondansetron HCl 4 mg 11/13/24 21:38 Ondansetron Hcl Odt 4 Mg Tablet PO Q4H PRN Nausea And Vomiting Oxycodone HCl 5 mg 11/13/24 21:38 Oxycodone Hcl (*Crx) 5 Mg Tab Ir PO QHS PRN Pain Rated 4-6 Psyllium Hydrophilic Mucilloid 1 packet 11/13/24 22:00 Psyllium Sugar Free Powder Packet PO DAILY PRN constipation Rosuvastatin Calcium 40 mg 11/13/24 22:00 11/15/24 21:42 Rosuvastatin 20 Mg Tablet PO Not Given QHS [facility] Senna 8.6 mg 11/13/24 21:38 Sennosides 8.6 Mg Tablet PO DAILY PRN Constipation Tamsulosin HCl 0.4 mg 11/14/24 09:00 11/15/24 09:43 Tamsulosin Hcl 0.4 Mg Capsule PO Not Given QAM [facility] Radiology Results: ITS Impressions Chest X-Ray 11/13/24 15:04 IMPRESSION: No focal consolidation. Mild perihilar bronchial wall thickening, findings suggestive of respiratory bronchiolitis. Chest/Abdomen/Pelvis CT 11/14/24 09:27 IMPRESSION: Bilateral renal calculi. Asymmetric mural thickening of the base of the bladder for which direct visualization is recommended. Findings which may represent partial distal bowel obstruction with significant air distention of the colon just before the anastomotic staple line and distal decompression. Significant gallbladder distention with trace surrounding inflammatory change. Bibasilar atelectasis. Renal Ultrasound 11/14/24 11:43 Impression: No definite abnormality seen. Visualization of the kidneys is somewhat suboptimal related to patient body habitus. Head CT 11/14/24 18:07 IMPRESSION: No acute intracranial findings. 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 Abdomen/Pelvis CT 11/15/24 09:13 IMPRESSION: 1. Bilateral nephrolithiasis with interval advancement of a 3-4 mm at least partially obstructing stone now at the left ureterovesicular junction with mild left hydroureteronephrosis. 2. Likely intermittent/partial small bowel obstruction secondary to a volvulus with at least 360 degrees twist of the distalmost small bowel immediately proximal to ileocolic anastomosis with no interval change in mild dilation of a few loops of more proximal small bowel. 3. Prominent dilation of the gallbladder to 6.5 cm but without evident wall thickening or pericholecystic infiltrate stranding to more specifically suggest acute cholecystitis. Correlate with the right upper quadrant ultrasound or HIDA scan. 4. Very small right and trace left pleural effusions and minimal perihepatic ascites. Abdomen Ultrasound 11/15/24 09:16 IMPRESSION: Fatty infiltration of the liver. Hydropic, fluid-filled gallbladder with dependent stones suspected. Hepatobiliary Scan [facility] 11/15/24 15:34 IMPRESSION: 1. Normal hepatobiliary scan. Abdomen X-Ray 11/15/24 18:37 IMPRESSION: Nasogastric tube projects over the left upper quadrant, as detailed above. Labs Labs: Laboratory Results - last 24 hr 11/15/24 11/15/24 11/15/24 11:21 12:35 15:55 WBC RBC Hgb Hct MCV MCH MCHC RDW Plt Count MPV Immature Gran % (Auto) Neut % (Auto) Lymph % (Auto) [place] % (Auto) Eos % (Auto) Baso % (Auto) Lymph # (Auto) [place] # (Auto) Eos # (Auto) Baso # (Auto) Abs Immat Gran (auto) Absolute Neuts (auto) Absolute Nucleated RBC Nucleated RBC % Sodium Potassium Chloride Carbon Dioxide Anion Gap BUN Creatinine Estim Creat Clear Calc Estimated GFR Glucose POC Capillary Glucose 107 H 89 Calcium Magnesium Total Bilirubin AST ALT Alkaline Phosphatase Ammonia < 9 L Total Protein Albumin 11/15/24 11/16/24 11/16/24 20:24 04:36 07:27 WBC 14.0 H RBC 3.41 L Hgb 9.6 L Hct 30.5 L MCV 89.4 MCH 28.2 MCHC 31.5 L RDW 15.7 H Plt Count 201 MPV 9.0 Immature Gran % (Auto) 2.0 H Neut % (Auto) 82.0 H Lymph % (Auto) 5.9 L [place] % (Auto) 8.6 H Eos % (Auto) 1.1 Baso % (Auto) 0.4 Lymph # (Auto) 0.82 L [place] # (Auto) 1.2 H Eos # (Auto) 0.2 Baso # (Auto) 0.1 Abs Immat Gran (auto) 0.28 H Absolute Neuts (auto) 11.5 H Absolute Nucleated RBC 0.000 Nucleated RBC % 0.0 Sodium 141 Potassium 4.6 Chloride 115 H Carbon Dioxide 13 L Anion Gap 13 H BUN 70 H Creatinine 7.27 H Estim Creat Clear Calc 11 Estimated GFR 8 L Glucose 91 POC Capillary Glucose 105 85 Calcium 8.8 Magnesium 1.8 Total Bilirubin 0.2 AST 27 ALT 16 Alkaline Phosphatase 121 Ammonia Total Protein 5.9 L Albumin 2.8 L 11/16/24 09:16 WBC RBC Hgb Hct MCV MCH MCHC RDW Plt Count MPV Immature Gran % (Auto) Neut % (Auto) Lymph % (Auto) [place] % (Auto) Eos % (Auto) Baso % (Auto) Lymph # (Auto) [place] # (Auto) Eos # (Auto) Baso # (Auto) Abs Immat Gran (auto) Absolute Neuts (auto) Absolute Nucleated RBC Nucleated RBC % Sodium Potassium Chloride Carbon Dioxide Anion Gap BUN Creatinine Estim Creat Clear Calc Estimated GFR Glucose POC Capillary Glucose 79 Calcium Magnesium Total Bilirubin AST ALT Alkaline Phosphatase Ammonia Total Protein Albumin
[2024-11-16] MEDS: ESCITALOPRAM OXALATE 5 MG TABLET 15 MG PO (11:14)
[2024-11-16] MEDS: ASPIRIN 81 MG ENTERIC TABLET PO (11:14)
[2024-11-16] MEDS: GABAPENTIN 100 MG CAPSULE PO ×2 (11:14→17:00)
--- NOTE | 2024-11-16 11:56 | PM.IMPN ---
Progress Note: A&P Assessment and Plan (1) Acute renal failure: Qualifiers: Acute renal failure type: unspecified Qualified Code(s): N17.9 - Acute kidney failure, unspecified Code(s): N17.9 - Acute kidney failure, unspecified Status: Acute Assessment and Plan: - creatinine 5.43, BUN 61, GFR 11 - baseline: 1.1-1.3 - renal ultrasound unremarkable Cr 7.27 today continue IVF and [place] catheter s/p cystoscopy with left ureteroscopy and stone extraction with bilateral stent Nephrology and Urology following (2) Hypotension: Qualifiers: Hypotension type: hypotension due to hypovolemia Qualified Code(s): E86.1 - Hypovolemia Code(s): I95.9 - Hypotension, unspecified Status: Resolved Assessment and Plan: patient was hypotensive on presentation r/o infection HIDA negative Continue Rocephin and Flagyl monitor cultures (3) Type 2 diabetes mellitus: Qualifiers: Diabetes mellitus custodial insulin use: with 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 Diabetes mellitus complication status: with hypoglycemia Diabetes mellitus complication detail: without coma Qualified Code(s): E11.649 - Type 2 diabetes mellitus with hypoglycemia without coma; Z79.4 - [facility] (current) use of insulin Code(s): E11.9 - Type 2 diabetes mellitus without complications Status: Chronic Assessment and Plan: NPO CCI with accucheks and adjust with clinical course (4) Hypertension: Qualifiers: Hypertension type: primary hypertension Qualified Code(s): I10 - Essential (primary) hypertension Code(s): I10 - Essential (primary) hypertension Status: Chronic Assessment and Plan: titrate home meds with clinical course Plan Partial SBO CT AP reviewed NPO, IVF, NG tube Contrast enema per Gen surgery Gen surgery following monitor Gall bladder distension Rule out Acute cholecystitis CT AP reviewed HIDA scan normal continue Rocephin and Metronidazole Blood culture Hydrops Gallbladder US abd reviewed Gen surgery following AMS Seizure vs Stroke vs Metabolic CT head no acute changes MRI brain, EEG Ammonia <9 May be from Uremia, however BUN is 70 this morning however LP and CSF studies ordered Neurology consulted Diet: heart healthy DVT Prophylaxis: Sq Heparin Code Status: DNR Subjective Date/time seen: 11/16/24 11:56 Interval history: Patient comfortable at bedside S/p Cystoscopy with left ureteroscopy with stone extraction Renal function worsening Review of Systems Review of Systems: All systems reviewed & are unremarkable except as noted in HPI and below Exam Const: General: comfortable and no acute distress Other: , male, chronically ill-appearing HENMT: Face/Nose/Sinus: Normal nares present Mouth: Yes dry mucous membranes Eyes: General: appearance normal, both eyes and all related structures Sclera: sclerae normal Pupils: Equal, round and reactive pupils present EOM: EOMs intact bilaterally Resp: Effort & Inspection: normal respiratory effort Auscultation: clear to auscultation bilaterally Cardio: Rate: regular rate Rhythm: regular rhythm Other: S1-S2 present without murmur, rub, ectopy GI: Other: Abdomen soft, nondistended, nontender. quiet but normoactive bowel sounds in all quadrants. Skin: General skin exam: normal color Other: skin tear to the left upper extremity, Steri-Stripped. No active bleeding. Various areas of ecchymosis to bilateral upper extremities, no particular pattern. In various stages of healing. Neuro: Cranial nerves: Yes Equal, round and reactive pupils present Speech: normal speech Motor exam (neuro): 5/5 motor strength present throughout Sensory Exam: normal sensation Other: A&O x3 Extrem: General: normal to inspection Psych: Mental Status: mental status grossly normal Affect: normal affect Other: fair insight and judgment. Objective Data Vital Signs Vital Signs: Vital Signs - 24 hr 11/15/24 12:00 11/15/24 12:00 11/15/24 14:00 Temperature Pulse Rate 64 63 Respiratory Rate Blood Pressure Pulse Oximetry 100 Oxygen Delivery Nasal Cannula Oxygen Flow Rate 3 Fraction of Inspired Oxygen 11/15/24 16:00 11/15/24 16:00 11/15/24 16:36 Temperature 98.7 F Pulse Rate 61 61 Respiratory Rate 24 H Blood Pressure 133/45 L Pulse Oximetry 98 98 Oxygen Delivery Nasal Cannula Oxygen Flow Rate 3 Fraction of Inspired Oxygen 11/15/24 18:00 11/15/24 19:41 11/15/24 20:00 Temperature 98.2 F Pulse Rate 61 69 108 H Respiratory Rate 22 H 23 H Blood Pressure 155/42 H Pulse Oximetry 96 93 Oxygen Delivery Nasal Cannula Oxygen Flow Rate 3 Fraction of Inspired Oxygen 32 11/15/24 20:00 11/15/24 22:00 11/15/24 22:01 Temperature Pulse Rate 108 H 78 69 Respiratory Rate 20 Blood Pressure Pulse Oximetry 97 Oxygen Delivery Nasal Cannula Oxygen Flow Rate 3 Fraction of Inspired Oxygen 32 11/16/24 00:00 11/16/24 00:00 11/16/24 00:10 Temperature Pulse Rate 74 74 73 Respiratory Rate 23 H 23 H Blood Pressure 132/46 L Pulse Oximetry 93 93 Oxygen Delivery Nasal Cannula Oxygen Flow Rate 3 Fraction of Inspired Oxygen 32 11/16/24 02:00 11/16/24 03:27 11/16/24 04:00 Temperature 98.3 F Pulse Rate 74 71 72 Respiratory Rate 23 H 23 H Blood Pressure 124/43 L Pulse Oximetry 93 93 Oxygen Delivery Nasal Cannula Oxygen Flow Rate 3 Fraction of Inspired Oxygen 32 11/16/24 04:00 11/16/24 06:00 11/16/24 07:51 Temperature 98.4 F Pulse Rate 72 70 64 Respiratory Rate 16 Blood Pressure 134/41 L Pulse Oximetry 100 Oxygen Delivery Oxygen Flow Rate Fraction of Inspired Oxygen 11/16/24 08:00 11/16/24 09:00 11/16/24 09:15 Temperature 97.8 F 97.5 F L Pulse Rate 64 67 63 Respiratory Rate 20 14 14 Blood Pressure 128/40 L 137/51 L 130/56 L Pulse Oximetry 97 100 100 Oxygen Delivery High Flow Nasal Cannula Simple Face Mask Simple Face Mask Oxygen Flow Rate 3 6 6 Fraction of Inspired Oxygen 11/16/24 09:30 11/16/24 09:45 11/16/24 10:00 Temperature 97.2 F L Pulse Rate 65 67 67 Respiratory Rate 14 14 14 Blood Pressure 142/54 H 135/58 L 155/45 H Pulse Oximetry 100 100 100 Oxygen Delivery Nasal Cannula Nasal Cannula Nasal Cannula Oxygen Flow Rate 3 3 3 Fraction of Inspired Oxygen 11/16/24 10:30 11/16/24 10:30 11/16/24 11:55 Temperature 96.9 F L Pulse Rate 68 63 Respiratory Rate 12 Blood Pressure 152/44 H Pulse Oximetry 99 100 Oxygen Delivery Nasal Cannula Oxygen Flow Rate 3 Fraction of Inspired Oxygen Intake/Output Intake/Output: Intake & Output 11/13/24 11/14/24 11/15/24 11/16/24 23:59 23:59 23:59 23:59 Intake Total 2099 3465.8 1454.2 761.2 Output Total 700 400 365 Balance 2100 2765.8 1054.2 396.2 Meds/Results Medications: Active Medications Generic Name Dose Route Start Last Admin Trade Name Freq PRN Reason Stop Dose Admin Acetaminophen 650 mg 11/13/24 21:38 Acetaminophen 325 Mg Tablet PO Q8H PRN Pain Rated 1-3 Albuterol 2 puff 11/13/24 21:38 Albuterol Sulfate (*Sp) Aerosol 1 Puff INHALATION Q4H PRN Wheezing Artificial Tears 1 drop 11/13/24 21:58 Artificial Tears Ophth Soln 15 Ml Bottle EACH EYE QID PRN Dry Eye(s) Aspirin 81 mg 11/14/24 09:00 11/16/24 11:14 Aspirin 81 Mg Enteric Tablet PO 81 mg DAILY BERNARDO Administration Benzonatate 100 mg 11/13/24 21:38 Benzonatate 100 Mg Capsule PO TID PRN cough Brimonidine Tartrate 1 drop 11/14/24 06:00 11/16/24 06:00 Brimonidine Tartrate 0.2% Op Soln 5 Ml Btl EACH EYE 1 drop Q8HR BERNARDO Administration Brinzolamide 1 drop 11/14/24 06:00 11/16/24 06:00 Brinzolamide 1% Ophth Susp 10 Ml EACH EYE 1 drop Q8HR BERNARDO Administration Cholestyramine Resin 4 gm 11/14/24 10:00 11/15/24 17:48 Cholestyramine (W/ Sugar) 4 Gm Powd.Pack PO Not Given 1000,1300,1800 BERNARDO Dextrose 12.5 gm 11/13/24 21:30 Dextrose 50% 25 Gm/50 Ml Syringe IV PUSH PRN PRN Hypoglycemia Protocol Escitalopram Oxalate 15 mg 11/14/24 09:00 11/16/24 11:14 Escitalopram Oxalate 5 Mg Tablet PO 15 mg QAM BERNARDO Administration Fluticasone/Umeclidinium/Vilanterol 1 puff 11/14/24 08:00 11/16/24 08:04 Fluticasone/Umeclidin/Vilanter 100-62.5-25 Mcg Ellipta INHALATION Not Given DAILYRT BERNARDO Gabapentin 100 mg 11/14/24 09:00 11/16/24 11:14 Gabapentin 100 Mg Capsule PO 100 mg TID BERNARDO Administration Glucagon 1 mg 11/13/24 21:30 Glucagon For Inj 1 Mg Vial IM PRN PRN Hypoglycemia Protocol Glucose 15 gm 11/13/24 21:30 Glucose Oral Gel 15 Gm Of Glucse In 37.5 Gm Tube PO PRN PRN Hypoglycemia Protocol Guaifenesin/Dextromethorphan 10 ml 11/13/24 21:38 Guaifenesin/Dextromethorphan 10 Ml Udc PO Q4-6H PRN Cough Heparin Sodium (Porcine) 5,000 units 11/14/24 22:00 11/16/24 06:00 Heparin Sodium 5,000 Units/Ml Vial SUB-Q 5,000 units Q8HR BERNARDO Administration Sodium Chloride 1,000 mls @ 75 mls/hr 11/13/24 17:55 11/16/24 07:30 Normal Saline Iv IV CONT 75 mls/hr .[id number] BERNARDO Infusion Dextrose 1,000 mls @ 100 mls/hr 11/13/24 21:30 Dextrose 5% 1,000 Ml IVPB PRN PRN Hypoglycemia Protocol Ceftriaxone Sodium 1 gm/ 50 mls @ 100 mls/hr 11/14/24 12:00 11/15/24 12:02 Sodium Chloride IVPB 100 mls/hr Q24H BERNARDO Administration Metronidazole 500 mg in 100 mls @ 100 mls/hr 11/14/24 12:00 11/16/24 05:59 Flagyl 500 Mg/Iso Soln 100 Ml IVPB 100 mls/hr Q8HR BERNARDO Administration Insulin Aspart 3 - 6 units 11/14/24 08:00 11/16/24 11:12 Insulin Aspart (*Bkc) 100 Units/Ml SUB-Q Not Given TIDWM [facility] Protocol Lidocaine 1 patch 11/14/24 09:00 11/16/24 11:14 Lidocaine 5% Patch TOPICAL Not Given DAILY [facility] Loperamide HCl 2 mg 11/13/24 21:38 Loperamide Hcl 2 Mg Capsule PO Q6H PRN Diarrhea Melatonin 5 mg 11/13/24 22:00 11/15/24 21:42 Melatonin 5 Mg Tablet PO Not Given HS BERNARDO Ondansetron HCl 4 mg 11/13/24 21:38 Ondansetron Hcl Odt 4 Mg Tablet PO Q4H PRN Nausea And Vomiting Oxycodone HCl 5 mg 11/13/24 21:38 Oxycodone Hcl (*Crx) 5 Mg Tab Ir PO QHS PRN Pain Rated 4-6 Pantoprazole Sodium 40 mg 11/17/24 09:00 Pantoprazole Sodium Iv 40 Mg Vial IV PUSH QAM [facility] Psyllium Hydrophilic Mucilloid 1 packet 11/13/24 22:00 Psyllium Sugar Free Powder Packet PO DAILY PRN constipation Rosuvastatin Calcium 40 mg 11/13/24 22:00 11/15/24 21:42 Rosuvastatin 20 Mg Tablet PO Not Given QHS [facility] Senna 8.6 mg 11/13/24 21:38 Sennosides 8.6 Mg Tablet PO DAILY PRN Constipation Tamsulosin HCl 0.4 mg 11/14/24 09:00 11/16/24 11:15 Tamsulosin Hcl 0.4 Mg Capsule PO [facility] [place] [place] [facility] Impressions Chest X-Ray 11/13/24 15:04 IMPRESSION: No focal consolidation. Mild perihilar bronchial wall thickening, findings suggestive of respiratory bronchiolitis. Chest/Abdomen/Pelvis CT 11/14/24 09:27 IMPRESSION: Bilateral renal calculi. Asymmetric mural thickening of the base of the bladder for which direct visualization is recommended. Findings which may represent partial distal bowel obstruction with significant air distention of the colon just before the anastomotic staple line and distal decompression. Significant gallbladder distention with trace surrounding inflammatory change. Bibasilar atelectasis. Renal Ultrasound 11/14/24 11:43 Impression: No definite abnormality seen. Visualization of the kidneys is somewhat suboptimal related to patient body habitus. Head CT 11/14/24 18:07 IMPRESSION: No acute intracranial findings. 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 Abdomen/Pelvis CT 11/15/24 09:13 IMPRESSION: 1. Bilateral nephrolithiasis with interval advancement of a 3-4 mm at least partially obstructing stone now at the left ureterovesicular junction with mild left hydroureteronephrosis. 2. Likely intermittent/partial small bowel obstruction secondary to a volvulus with at least 360 degrees twist of the distalmost small bowel immediately proximal to ileocolic anastomosis with no interval change in mild dilation of a few loops of more proximal small bowel. 3. Prominent dilation of the gallbladder to 6.5 cm but without evident wall thickening or pericholecystic infiltrate stranding to more specifically suggest acute cholecystitis. Correlate with the right upper quadrant ultrasound or HIDA scan. 4. Very small right and trace left pleural effusions and minimal perihepatic ascites. Abdomen Ultrasound 11/15/24 09:16 IMPRESSION: Fatty infiltration of the liver. Hydropic, fluid-filled gallbladder with dependent stones suspected. Hepatobiliary Scan Nuclear [facility] 11/15/24 15:34 IMPRESSION: 1. Normal hepatobiliary scan. Abdomen X-Ray 11/15/24 18:37 IMPRESSION: Nasogastric tube projects over the left upper quadrant, as detailed above. Labs Labs: Laboratory Results - last 24 hr 11/15/24 11/15/24 11/15/24 12:35 15:55 20:24 WBC RBC Hgb Hct MCV MCH MCHC RDW Plt Count MPV Immature Gran % (Auto) Neut % (Auto) Lymph % (Auto) [place] % (Auto) Eos % (Auto) Baso % (Auto) Lymph # (Auto) [place] # (Auto) Eos # (Auto) Baso # (Auto) Abs Immat Gran (auto) Absolute Neuts (auto) Absolute Nucleated RBC Nucleated RBC % Sodium Potassium Chloride Carbon Dioxide Anion Gap BUN Creatinine Estim Creat Clear Calc Estimated GFR Glucose POC Capillary Glucose 89 105 Calcium Magnesium Total Bilirubin AST ALT Alkaline Phosphatase Ammonia < 9 L Total Protein Albumin 11/16/24 11/16/24 11/16/24 04:36 07:27 09:16 WBC 14.0 H RBC 3.41 L Hgb 9.6 L Hct 30.5 L MCV 89.4 MCH 28.2 MCHC 31.5 L RDW 15.7 H Plt Count 201 MPV 9.0 Immature Gran % (Auto) 2.0 H Neut % (Auto) 82.0 H Lymph % (Auto) 5.9 L [place] % (Auto) 8.6 H Eos % (Auto) 1.1 Baso % (Auto) 0.4 Lymph # (Auto) 0.82 L [place] # (Auto) 1.2 H Eos # (Auto) 0.2 Baso # (Auto) 0.1 Abs Immat Gran (auto) 0.28 H Absolute Neuts (auto) 11.5 H Absolute Nucleated RBC 0.000 Nucleated RBC % 0.0 Sodium 141 Potassium 4.6 Chloride 115 H Carbon Dioxide 13 L Anion Gap 13 H BUN 70 H Creatinine 7.27 H Estim Creat Clear Calc 11 Estimated GFR 8 L Glucose 91 POC Capillary Glucose 85 79 Calcium 8.8 Magnesium 1.8 Total Bilirubin 0.2 AST 27 ALT 16 Alkaline Phosphatase 121 Ammonia Total Protein 5.9 L Albumin 2.8 L 11/16/24 11:17 WBC RBC Hgb Hct MCV MCH MCHC RDW Plt Count MPV Immature Gran % (Auto) Neut % (Auto) Lymph % (Auto) [place] % (Auto) Eos % (Auto) Baso % (Auto) Lymph # (Auto) [place] # (Auto) Eos # (Auto) Baso # (Auto) Abs Immat Gran (auto) Absolute Neuts (auto) Absolute Nucleated RBC Nucleated RBC % Sodium Potassium Chloride Carbon Dioxide Anion Gap BUN Creatinine Estim Creat Clear Calc Estimated GFR Glucose POC Capillary Glucose 89 Calcium Magnesium Total Bilirubin AST ALT Alkaline Phosphatase Ammonia Total Protein Albumin Quality VTE Prophylaxis VTE prophylaxis: mechanical ordered
--- NOTE | 2024-11-16 12:51 | P.PNNP_ITS ---
Progress Note: A&P Assessment and Plan (1) Acute kidney injury: Code(s): N17.9 - Acute kidney failure, unspecified Status: Acute Assessment and Plan: * continue to deteriorate * as noted by admission labs * baseline creatinine seems to run ~ 1.1 - 1.3mg/dl * creatinine 1.13mg/dl in July 2024 * suspect multifactorial etiology: * prerenal factors * hypotension/hemodynamic instability * urinary retention/obstruction * infection (gallbladder?) * other(?) * evaluation to date noted: * urine electrolytes prerenal * rare urine eosinophils -- possible AIN? (however, no rash or peripheral eosinophilia) * CPK mildly elevated (but not enough to affect kidney function) * mild proteinuria * UA without evidence of infection * renal ultrasound negative (but limited due to body habitus) * since NPO, continue with IVFs for now * follow trend of repeat labs and UOP (2) Altered mental status: Code(s): R41.82 - Altered mental status, unspecified Status: Acute Assessment and Plan: * as noted since 11/15 * etiology?? -- related to renal failure?? * Neurology recommendations noted * MRI of brain later today * possible lumbar puncture? * follow mentation (3) SBO (small bowel obstruction): Code(s): K56.609 - Unspecified intestinal obstruction, unspecified as to partial versus complete obstruction Status: Acute Assessment and Plan: * admission CT demonstrated findings which may represent partial distal bowel obstruction with significant air distention of the colon just before the and anastomotic staple line and distal decompression * repeat CT scan noted as well * NG tube in place * Surgery following with recommendations noted * continue supportive therapy (4) Dilated gallbladder: Code(s): K82.8 - Other specified diseases of gallbladder Status: Acute Assessment and Plan: * admission CT demonstrated significant gallbladder distention with trace surrounding inflammatory change * repeat CT scan noted as well * normal LFTs * abdominal exam positive for diffuse tenderness to palpation (but unreliable given AMS) * no nausea or vomiting * Surgery following - poor surgical candidate if intervention needed... (5) Bilateral nephrolithiasis: Code(s): N20.0 - Calculus of kidney Status: Acute Assessment and Plan: * admission and repeat CT scan noted/reviewed * Urology recommendations noted * s/p cystoscopy, stone extraction, bilateral ureteral stent placement (on 11/16) * continue supportive therapy (6) Hypotension: Qualifiers: Hypotension type: hypotension due to hypovolemia Qualified Code(s): E 86.1 - Hypovolemia Code(s): I95.9 - Hypotension, unspecified Status: Acute Assessment and Plan: * clinically better/resolved * BP medications on hold * on trial of IVFs * follow trend of hemodynamics (7) Type 2 diabetes mellitus: Qualifiers: 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 L Subjective Date/time seen: 11/16/24 12:51 Interval history: Follow-up for acute kidney injury/acute renal failure. Due to worsening kidney function, taken to OR earlier this morning for cystoscopy and bilateral ureteral stent placement; still remains encephalopathy/obtunded at the time of my visit; NG tube placed yesterday; no other acute issues/events overnight or earlier this morning. Exam 2 Narrative: General: large but ill-appearing male in NAD; obtunded Heart: normal S1 and S2; no rub Lungs: clear anteriorly Abdomen: obese with diminished bowel sounds Extremities: no cyanosis or clubbing; trace edema Skin: warm and intact Objective Data Vital Signs Vital Signs: Vital Signs Temp Pulse Resp BP Pulse Ox O2 Del Method O2 Flow Rate 11/16/24 16:00 58 L 11/16/24 16:00 98 Nasal Cannula 3 11/16/24 16:00 96.7 F L 65 16 135/63 100 11/16/24 14:00 60 11/16/24 12:00 66 11/16/24 12:00 96 Nasal Cannula 3 11/16/24 11:55 96.9 F L 63 12 152/44 H 100 11/16/24 10:30 99 Nasal Cannula 3 11/16/24 10:30 68 11/16/24 10:00 97.2 F L 67 14 155/45 H 100 Nasal Cannula 3 11/16/24 09:45 67 14 135/58 L 100 Nasal Cannula 3 11/16/24 09:30 65 14 142/54 H 100 Nasal Cannula 3 11/16/24 09:15 63 14 130/56 L 100 Simple Face Mask 6 11/16/24 09:00 97.5 F L 67 14 137/51 L 100 Simple Face Mask 6 11/16/24 08:00 97.8 F 64 20 128/40 L 97 High Flow Nasal Cannula 3 11/16/24 07:51 98.4 F 64 16 134/41 L 100 11/16/24 06:00 70 11/16/24 04:00 72 11/16/24 04:00 72 23 H 93 Nasal Cannula 3 11/16/24 03:27 98.3 F 71 23 H 124/43 L 93 11/16/24 02:00 74 11/16/24 00:10 73 23 H 132/46 L 93 11/16/24 00:00 74 11/16/24 00:00 74 23 H 93 Nasal Cannula 3 11/15/24 22:01 69 20 97 Nasal Cannula 3 11/15/24 22:00 78 11/15/24 20:00 108 H 11/15/24 20:00 108 H 23 H 93 Nasal Cannula 3 11/15/24 19:41 98.2 F 69 22 H 155/42 H 96 11/15/24 18:00 61 Intake/Output Intake/Output: Intake & Output 11/13/24 11/14/24 11/15/24 11/16/24 23:59 23:59 23:59 23:59 Intake Total 2100 3465.8 1504.2 1150.0 Output Total 700 400 365 Balance 2100 2765.8 1104.2 785.0 Meds/Results Medications: Active Medications Generic Name Dose Route Start Last Admin Trade Name Freq PRN Reason Stop Dose Admin Acetaminophen 650 mg 11/13/24 21:38 Acetaminophen 325 Mg Tablet PO Q8H PRN Pain Rated 1-3 Albuterol 2 puff 11/13/24 21:38 Albuterol Sulfate (*Sp) Aerosol 1 Puff INHALATION Q4H PRN Wheezing Artificial Tears 1 drop 11/13/24 21:58 Artificial Tears Ophth Soln 15 Ml Bottle EACH EYE QID PRN Dry Eye(s) Aspirin 81 mg 11/14/24 09:00 11/16/24 11:14 Aspirin 81 Mg Enteric Tablet PO 81 mg DAILY B[facility]ARDO Administration Benzonatate 100 mg 11/13/24 21:38 Benzonatate 100 Mg Capsule PO TID PRN cough Brimonidine Tartrate 1 drop 11/14/24 06:00 11/16/24 12:59 Brimonidine Tartrate 0.2% Op Soln 5 Ml Btl EACH EYE 1 drop Q8HR BERNARDO Administration Brinzolamide 1 drop 11/14/24 06:00 11/16/24 12:59 Brinzolamide 1% Ophth Susp 10 Ml EACH EYE 1 drop Q8HR [facility] Administration Cholestyramine Resin 4 gm 11/14/24 10:00 11/16/24 13:00 Cholestyramine (W/ Sugar) 4 Gm Powd.Pack PO Not Given 1000,1300,1800 [facility] Dextrose 12.5 gm 11/13/24 21:30 Dextrose 50% 25 Gm/50 Ml Syringe IV PUSH PRN PRN Hypoglycemia Protocol Escitalopram Oxalate 15 mg 11/14/24 09:00 11/16/24 11:14 Escitalopram Oxalate 5 Mg Tablet PO 15 mg QAM B[facility]ARDO Administration Fluticasone/Umeclidinium/Vilanterol 1 puff 11/14/24 08:00 11/16/24 08:04 Fluticasone/Umeclidin/Vilanter 100-62.5-25 Mcg Ellipta INHALATION Not Given DAILYRT [facility] Gabapentin 100 mg 11/14/24 09:00 11/16/24 12:59 Gabapentin 100 Mg Capsule PO Not Given TID [facility] Glucagon 1 mg 11/13/24 21:30 Glucagon For Inj 1 Mg Vial IM PRN PRN Hypoglycemia Protocol Glucose 15 gm 11/13/24 21:30 Glucose Oral Gel 15 Gm Of Glucse In 37.5 Gm Tube PO PRN PRN Hypoglycemia Protocol Guaifenesin/Dextromethorphan 10 ml 11/13/24 21:38 Guaifenesin/Dextromethorphan 10 Ml Udc PO Q4-6H PRN Cough Heparin Sodium (Porcine) 5,000 units 11/14/24 22:00 11/16/24 12:59 Heparin Sodium 5,000 Units/Ml Vial SUB-Q Not Given Q8HR [facility] Sodium Chloride 1,000 mls @ 75 mls/hr 11/13/24 17:55 11/16/24 16:52 Normal Saline Iv IV CONT 75 mls/hr .[id number] [facility] Administration Dextrose 1,000 mls @ 100 mls/hr 11/13/24 21:30 Dextrose 5% 1,000 Ml IVPB PRN PRN Hypoglycemia Protocol Ceftriaxone Sodium 1 gm/ 50 mls @ 100 mls/hr 11/14/24 12:00 11/16/24 13:15 Sodium Chloride IVPB 100 mls/hr Q24H [facility] Administration Metronidazole 500 mg in 100 mls @ 100 mls/hr 11/14/24 12:00 11/16/24 13:15 Flagyl 500 Mg/Iso Soln 100 Ml IVPB 100 mls/hr Q8HR [facility] Administration Insulin Aspart 3 - 6 units 11/14/24 08:00 11/16/24 16:52 Insulin Aspart (*Bkc) 100 Units/Ml SUB-Q Not Given TIDWM [facility] Protocol Lidocaine 1 patch 11/14/24 09:00 11/16/24 11:14 Lidocaine 5% Patch TOPICAL Not Given DAILY [facility] Loperamide HCl 2 mg 11/13/24 21:38 Loperamide Hcl 2 Mg Capsule PO Q6H PRN Diarrhea Melatonin 5 mg 11/13/24 22:00 11/15/24 21:42 Melatonin 5 Mg Tablet PO Not Given HS [facility] Ondansetron HCl 4 mg 11/13/24 21:38 Ondansetron Hcl Odt 4 Mg Tablet PO Q4H PRN Nausea And Vomiting Oxycodone HCl 5 mg 11/13/24 21:38 Oxycodone Hcl (*Crx) 5 Mg Tab Ir PO QHS PRN Pain Rated 4-6 Pantoprazole Sodium 40 mg 11/17/24 09:00 Pantoprazole Sodium Iv 40 Mg Vial IV PUSH QAM [facility] Psyllium Hydrophilic Mucilloid 1 packet 11/13/24 22:00 Psyllium Sugar Free Powder Packet PO DAILY PRN constipation Rosuvastatin Calcium 40 mg 11/13/24 22:00 11/15/24 21:42 Rosuvastatin 20 Mg Tablet PO Not Given QHS [facility] Senna 8.6 mg 11/13/24 21:38 Sennosides 8.6 Mg Tablet PO DAILY PRN Constipation Tamsulosin HCl 0.4 mg 11/14/24 09:00 11/16/24 11:15 Tamsulosin Hcl 0.4 Mg Capsule PO Not Given [facility] Results: ITS Impressions Chest X-Ray 11/13/24 15:04 IMPRESSION: No focal consolidation. Mild perihilar bronchial wall thickening, findings suggestive of respiratory bronchiolitis. Chest/Abdomen/Pelvis CT 11/14/24 09:27 IMPRESSION: Bilateral renal calculi. Asymmetric mural thickening of the base of the bladder for which direct visualization is recommended. Findings which may represent partial distal bowel obstruction with significant air distention of the colon just before the anastomotic staple line and distal decompression. Significant gallbladder distention with trace surrounding inflammatory change. Bibasilar atelectasis. Renal Ultrasound 11/14/24 11:43 Impression: No definite abnormality seen. Visualization of the kidneys is somewhat suboptimal related to patient body habitus. Head CT 11/14/24 18:07 IMPRESSION: No acute intracranial findings. 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 Abdomen/Pelvis CT 11/15/24 09:13 IMPRESSION: 1. Bilateral nephrolithiasis with interval advancement of a 3-4 mm at least partially obstructing stone now at the left ureterovesicular junction with mild left hydroureteronephrosis. 2. Likely intermittent/partial small bowel obstruction secondary to a volvulus with at least 360 degrees twist of the distalmost small bowel immediately proximal to ileocolic anastomosis with no interval change in mild dilation of a few loops of more proximal small bowel. 3. Prominent dilation of the gallbladder to 6.5 cm but without evident wall thickening or pericholecystic infiltrate stranding to more specifically suggest acute cholecystitis. Correlate with the right upper quadrant ultrasound or HIDA scan. 4. Very small right and trace left pleural effusions and minimal perihepatic ascites. Abdomen Ultrasound 11/15/24 09:16 IMPRESSION: Fatty infiltration of the liver. Hydropic, fluid-filled gallbladder with dependent stones suspected. Hepatobiliary Scan Nuclear [facility] 11/15/24 15:34 IMPRESSION: 1. Normal hepatobiliary scan. Abdomen X-Ray 11/15/24 18:37 IMPRESSION: Nasogastric tube projects over the left upper quadrant, as detailed above. Labs Labs: Laboratory Tests 11/16/24 04:36 11/16/24 04:36 Calcium 8.8 Magnesium 1.8 Total Bilirubin 0.2 AST 27 ALT 16 Alkaline Phosphatase 121 Total Protein 5.9 L Albumin 2.8 L
[2024-11-16] MEDS: CHOLESTYRAMINE (W/ SUGAR) 4 GM POWD.PACK PO ×2 (12:54→18:45)
[2024-11-16] MEDS: cefTRIAXone 1 GM in SODIUM CHLORIDE 0.9% IV 50 ML 100 ML IVPB (13:15)
[2024-11-16] MEDS: SODIUM CHLORIDE 0.9% IV 1,000 ML 75 ML IV CONT (16:52)
--- NOTE | 2024-11-16 17:18 | PC.NURSE ---
Patient having hematuria. Called Urology exchange. Spoke to Dr. Mina. He states this is to be expected, call back only if the patient stops making urine.
[2024-11-16] MEDS: ROSUVASTATIN 20 MG TABLET 40 MG PO (21:20)
[2024-11-16] MEDS: MELATONIN 5 MG TABLET PO (21:20)
[2024-11-17] VITALS (30 sets, daily range): BP systolic 134–181; BP diastolic 44–80; PULSE 55–83; RESP 12–22; TEMP 36–37.2; O2SAT 97–100
[2024-11-17] MEDS: metroNIDAZOLE 500 MG/ISO 100ML 500 MG/100 ML BAG 100 MG IVPB (06:08)
[2024-11-17] MEDS: BRIMONIDINE TARTRATE 0.2% OP SOLN 5 ML BTL 1 DROP EACH EYE ×3 (06:08→22:23)
[2024-11-17] MEDS: BRINZOLAMIDE 1% OPHTH SUSP 10 ML 1 DROP EACH EYE ×3 (06:09→22:23)
[2024-11-17 06:21] LABS: INR 1.3; Partial Thromboplastin Time 35.6 Seconds (22.3-36.8); Prothrombin Time 16.3 Seconds (11.1-14.7)
[2024-11-17 07:08] LABS: Hematocrit 32.6 % (42.0-52.0); Hemoglobin 10.2 g/dL (14.0-18.0); Immature Granulocyte Percent A 4.4 % (0-0.5); Lymphocytes Absolute Auto 0.70 K/mm3 (0.9-3.2); Mean Corpuscular HGB Conc 31.3 g/dl (32-36); Mean Corpuscular Hemoglobin 27.6 pg (26-34); Mean Corpuscular Volume 88.3 fl (80-100); Nucleated Red Blood Cells Absolute Auto 0.000 K/mm3 (0.0-0.012); Nucleated Red Blood Cells Perc 0.0 % (0.0-0.2); Platelet Count Result 232 k/mm3 (150-375); Red Blood Count 3.69 M/mm3 (4.6-6.20); White Blood Count 11.9 K/mm3 (4.5-10.0)
[2024-11-17 07:43] LABS: Alanine Aminotransferase 17 U/L (6-50); Albumin Level 2.9 g/dL (3.5-5.1); Alkaline Phosphatase 125 U/L (38-126); Anion Gap 16 mmol/L (4-12); Aspartate Amino Transferase 29 U/L (17-59); Bilirubin,Total 0.2 mg/dL (0.2-1.3); Blood Urea Nitrogen 87 mg/dL (9-20); Calcium 9.1 mg/dL (8.4-10.2); Carbon Dioxide 11 mmol/L (22-30); Chloride 114 mmol/L (98-107); Estimated CRCL calculation 11 ml/min; Estimated Glomerular Filt Rate 7; Glucose 139 mg/dL (65-110); Potassium 4.9 mmol/L (3.4-5.0); Sodium 141 mmol/L (137-145); Total Protein 6.0 g/dL (6.3-8.2)
[2024-11-17] MEDS: SODIUM CHLORIDE 0.9% IV 1,000 ML 75 ML IV CONT (09:24)
--- NOTE | 2024-11-17 10:29 | PCNFU ---
Addendum entered by Velma Newsome, MIKE, LDN 11/17/24 13:09: Nutrition Follow-Up Complete: Inadequate energy intake related to NPO status as evidenced by current diet orders Meet estimated needs - Not progressing, NPO for last 48 hours for procedures. COntinue goal Goal: Pt current nutrition is NPO for SBO Nutrition recommendation: PPN Clinmix E 4.25/5 with lipids at 80 ml/h Last recorded weight is 107.1 kg. Bowel Motility: No BMs are charted Labs Reviewed: Hgb 10.2, Hct 32.6, Alb 2.9, BUN 87, Cre 7.73, Glu 139 Meds Noted: NS, insulin, protonix Skin: Deep tissue pressure injury to L thigh Additional Notes: Remains NPO for SBO and is ordering PPN. Clinmix E 4.25/5 @ 80 ml/h provides 1153 kcal, 82, 2170 ml total volume. Will continue to monitor. Pt is sleepy. Monitor diet orders, plan of care, wt, labs. Follow up in 3 days. Original Note: Nutrition Follow-Up Complete: Inadequate energy intake related to NPO status as evidenced by current diet orders Meet estimated needs - Not progressing, NPO for last 48 hours for procedures. COntinue goal Goal: Pt current nutrition is NPO for lumbar puncture. Nutrition recommendation: Advance diet to heart healthy as tolerated Last recorded weight is 107.1 kg. Bowel Motility: No BMs are charted Labs Reviewed: Hgb 10.2, Hct 32.6, Alb 2.9, BUN 87, Cre 7.73, Glu 139 Meds Noted: NS, insulin, protonix Skin: Deep tissue pressure injury to L thigh Additional Notes: NPO for lumbar puncture today, NPO for ureteral stent yesterday. COntinue to monitor Monitor diet orders, plan of care, wt, labs. Follow up in 3 days.
[2024-11-17] MEDS: cefTRIAXone 1 GM in SODIUM CHLORIDE 0.9% IV 50 ML 100 ML IVPB (11:59)
[2024-11-17] MEDS: PANTOPRAZOLE SODIUM IV 40 MG VIAL IV PUSH (12:00)
--- NOTE | 2024-11-17 12:17 | PM.PNGS ---
Progress Note: A&P Assessment and Plan (1) SBO (small bowel obstruction): Code(s): K56.609 - Unspecified intestinal obstruction, unspecified as to partial versus complete obstruction Status: Acute Assessment and Plan: NG output dark, but H/H stable. On Protonix for GI prophylaxis. Will get KUB today. Possibly start Nepro tube feedings if no significant dilated bowel noted. [facility] to determine what [facility] patient had in past. Will order SBFT or Hypaque enema based on record review. Will continue to follow along with patient. (2) Dilated gallbladder: Code(s): K82.8 - Other specified diseases of gallbladder Status: Acute Assessment and Plan: Normal HIDA scan rules out acute cholecystitis. No surgical indications at this time. (3) Acute renal failure: Qualifiers: Acute renal failure type: unspecified Qualified Code(s): N17.9 - Acute kidney failure, unspecified Code(s): N17.9 - Acute kidney failure, unspecified Status: Acute Subjective Subjective Date/Time Seen: 11/17/24 12:17 Interval history: Still somnolent and difficult to arouse. No tenderness noted on exam. Discussed with nurse. No BM since admission. Exam GI: Inspection: non-distended and obesity GI Palp: Yes Soft to palpation, No Tenderness to palpation present (GI), No Guarding due to palpation present (GI) and No Rebound tenderness present Percussion: Yes normal to percussion Auscultation: normal bowel sounds Objective Data Vital Signs Vital Signs: Vital Signs - 24 hr 11/16/24 14:00 11/16/24 16:00 11/16/24 16:00 Temperature 96.7 F L Pulse Rate 60 65 Respiratory Rate 16 Blood Pressure 135/63 Pulse Oximetry 100 98 Oxygen Delivery Nasal Cannula Oxygen Flow Rate 3 11/16/24 16:00 11/16/24 18:00 11/16/24 20:00 Temperature Pulse Rate 58 L 68 Respiratory Rate Blood Pressure Pulse Oximetry 98 Oxygen Delivery Nasal Cannula Oxygen Flow Rate 2 11/16/24 20:00 11/16/24 20:03 11/16/24 21:02 Temperature 97.8 F Pulse Rate 67 63 Respiratory Rate 23 H Blood Pressure 132/54 L Pulse Oximetry 99 98 Oxygen Delivery Nasal Cannula Oxygen Flow Rate 3 11/16/24 21:33 11/16/24 22:00 11/17/24 00:00 Temperature Pulse Rate 60 Respiratory Rate Blood Pressure Pulse Oximetry 98 98 Oxygen Delivery Nasal Cannula Nasal Cannula Oxygen Flow Rate 2 2 11/17/24 00:00 11/17/24 00:16 11/17/24 02:00 Temperature 98.8 F Pulse Rate 62 63 62 Respiratory Rate 22 H Blood Pressure 146/46 H Pulse Oximetry 97 Oxygen Delivery Oxygen Flow Rate 11/17/24 03:44 11/17/24 04:00 11/17/24 04:00 Temperature 99.0 F Pulse Rate 60 68 Respiratory Rate 22 H Blood Pressure 134/44 L Pulse Oximetry 98 98 Oxygen Delivery Nasal Cannula Oxygen Flow Rate 2 11/17/24 06:00 11/17/24 07:53 11/17/24 08:00 Temperature 96.8 F L Pulse Rate 66 66 61 Respiratory Rate 12 Blood Pressure 139/58 L Pulse Oximetry 100 Oxygen Delivery Oxygen Flow Rate 11/17/24 08:50 11/17/24 10:00 11/17/24 11:24 Temperature 98.0 F Pulse Rate 64 65 Respiratory Rate 22 H Blood Pressure 147/59 H Pulse Oximetry 99 100 Oxygen Delivery Nasal Cannula Oxygen Flow Rate 2 Intake/Output Intake/Output: Intake & Output 11/14/24 11/15/24 11/16/24 11/17/24 23:59 23:59 23:59 23:59 Intake Total 3465.8 1504.2 1400.0 1000 Output Total 040 191 3533 600 Balance 2765.8 1104.2 385.0 400 Meds/Results Medications: Active Medications Generic Name Dose Route Start Last Admin Trade Name Freq PRN Reason Stop Dose Admin Acetaminophen 650 mg 11/13/24 21:38 Acetaminophen 325 Mg Tablet PO Q8H PRN Pain Rated 1-3 Albuterol 2 puff 11/13/24 21:38 Albuterol Sulfate (*Sp) Aerosol 1 Puff INHALATION Q4H PRN Wheezing Artificial Tears 1 drop 11/13/24 21:58 Artificial Tears Ophth Soln 15 Ml Bottle EACH EYE QID PRN Dry Eye(s) Aspirin 81 mg 11/14/24 09:00 11/17/24 09:22 Aspirin 81 Mg Enteric Tablet PO Not Given DAILY BERNARDO Benzonatate 100 mg 11/13/24 21:38 Benzonatate 100 Mg Capsule PO TID PRN cough Brimonidine Tartrate 1 drop 11/14/24 06:00 11/17/24 06:08 Brimonidine Tartrate 0.2% Op Soln 5 Ml Btl EACH EYE 1 drop Q8HR BERNARDO Administration Brinzolamide 1 drop 11/14/24 06:00 11/17/24 06:09 Brinzolamide 1% Ophth Susp 10 Ml EACH EYE 1 drop Q8HR BERNARDO Administration Cholestyramine Resin 4 gm 11/14/24 10:00 11/17/24 11:13 Cholestyramine (W/ Sugar) 4 Gm Powd.Pack PO Not Given 1000,1300,1800 BERNARDO Dextrose 12.5 gm 11/13/24 21:30 Dextrose 50% 25 Gm/50 Ml Syringe IV PUSH PRN PRN Hypoglycemia Protocol Escitalopram Oxalate 15 mg 11/14/24 09:00 11/17/24 09:23 Escitalopram Oxalate 5 Mg Tablet PO Not Given QAM BERNARDO Fluticasone/Umeclidinium/Vilanterol 1 puff 11/14/24 08:00 11/16/24 08:04 Fluticasone/Umeclidin/Vilanter 100-62.5-25 Mcg Ellipta INHALATION Not Given DAILYRT BERNARDO Gabapentin 100 mg 11/14/24 09:00 11/17/24 09:23 Gabapentin 100 Mg Capsule PO Not Given TID BERNARDO Glucagon 1 mg 11/13/24 21:30 Glucagon For Inj 1 Mg Vial IM PRN PRN Hypoglycemia Protocol Glucose 15 gm 11/13/24 21:30 Glucose Oral Gel 15 Gm Of Glucse In 37.5 Gm Tube PO PRN PRN Hypoglycemia Protocol Guaifenesin/Dextromethorphan 10 ml 11/13/24 21:38 Guaifenesin/Dextromethorphan 10 Ml Udc PO Q4-6H PRN Cough Heparin Sodium (Porcine) 5,000 units 11/14/24 22:00 11/17/24 06:08 Heparin Sodium 5,000 Units/Ml Vial SUB-Q 5,000 units Q8HR BERNARDO Administration Sodium Chloride 1,000 mls @ 75 mls/hr 11/13/24 17:55 11/17/24 09:24 Normal Saline Iv IV CONT 75 mls/hr .[id number] BERNARDO Administration Dextrose 1,000 mls @ 100 mls/hr 11/13/24 21:30 Dextrose 5% 1,000 Ml IVPB PRN PRN Hypoglycemia Protocol Ceftriaxone Sodium 1 gm/ 50 mls @ 100 mls/hr 11/14/24 12:00 11/17/24 11:59 Sodium Chloride IVPB 100 mls/hr Q24H BERNARDO Administration Metronidazole 500 mg in 100 mls @ 100 mls/hr 11/14/24 12:00 11/17/24 06:08 Flagyl 500 Mg/Iso Soln 100 Ml IVPB 100 mls/hr Q8HR BERNARDO Administration Insulin Aspart 3 - 6 units 11/14/24 08:00 11/17/24 12:00 Insulin Aspart (*Bkc) 100 Units/Ml SUB-Q Not Given TIDWM [facility] Protocol Lidocaine 1 patch 11/14/24 09:00 11/16/24 11:14 Lidocaine 5% Patch TOPICAL Not Given DAILY BERNARDO Loperamide HCl 2 mg 11/13/24 21:38 Loperamide Hcl 2 Mg Capsule PO Q6H PRN Diarrhea Melatonin 5 mg 11/13/24 22:00 11/16/24 21:20 Melatonin 5 Mg Tablet PO 5 mg HS [facility] Administration Morphine Sulfate 2 mg 11/17/24 10:55 Morphine Sulfate (*Crx) 2 Mg/Ml Inj IV PUSH ONCE PRN Pain Ondansetron HCl 4 mg 11/13/24 21:38 Ondansetron Hcl Odt 4 Mg Tablet PO Q4H PRN Nausea And Vomiting Oxycodone HCl 5 mg 11/13/24 21:38 Oxycodone Hcl (*Crx) 5 Mg Tab Ir PO QHS PRN Pain Rated 4-6 Pantoprazole Sodium 40 mg 11/17/24 09:00 11/17/24 12:00 Pantoprazole Sodium Iv 40 Mg Vial IV PUSH 40 mg QAM BERNARDO Administration Psyllium Hydrophilic Mucilloid 1 packet 11/13/24 22:00 Psyllium Sugar Free Powder Packet PO DAILY PRN constipation Rosuvastatin Calcium 40 mg 11/13/24 22:00 11/16/24 21:20 Rosuvastatin 20 Mg Tablet PO 40 mg QHS BERNARDO Administration Senna 8.6 mg 11/13/24 21:38 Sennosides 8.6 Mg Tablet PO DAILY PRN Constipation Tamsulosin HCl 0.4 mg 11/14/24 09:00 11/17/24 09:23 Tamsulosin Hcl 0.4 Mg Capsule PO Not Given QAM [facility] Radiology Results: ITS Impressions Chest X-Ray 11/13/24 15:04 IMPRESSION: No focal consolidation. Mild perihilar bronchial wall thickening, findings suggestive of respiratory bronchiolitis. Chest/Abdomen/Pelvis CT 11/14/24 09:27 IMPRESSION: Bilateral renal calculi. Asymmetric mural thickening of the base of the bladder for which direct visualization is recommended. Findings which may represent partial distal bowel obstruction with significant air distention of the colon just before the anastomotic staple line and distal decompression. Significant gallbladder distention with trace surrounding inflammatory change. Bibasilar atelectasis. Renal Ultrasound 11/14/24 11:43 Impression: No definite abnormality seen. Visualization of the kidneys is somewhat suboptimal related to patient body habitus. Head CT 11/14/24 18:07 IMPRESSION: No acute intracranial findings. 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 Abdomen/Pelvis CT 11/15/24 09:13 IMPRESSION: 1. Bilateral nephrolithiasis with interval advancement of a 3-4 mm at least partially obstructing stone now at the left ureterovesicular junction with mild left hydroureteronephrosis. 2. Likely intermittent/partial small bowel obstruction secondary to a volvulus with at least 360 degrees twist of the distalmost small bowel immediately proximal to ileocolic anastomosis with no interval change in mild dilation of a few loops of more proximal small bowel. 3. Prominent dilation of the gallbladder to 6.5 cm but without evident wall thickening or pericholecystic infiltrate stranding to more specifically suggest acute cholecystitis. Correlate with the right upper quadrant ultrasound or HIDA scan. 4. Very small right and trace left pleural effusions and minimal perihepatic ascites. Abdomen Ultrasound 11/15/24 09:16 IMPRESSION: Fatty infiltration of the liver. Hydropic, fluid-filled gallbladder with dependent stones suspected. Hepatobiliary Scan Nuclear Medicine 11/15/24 15:34 IMPRESSION: 1. Normal hepatobiliary scan. Abdomen X-Ray 11/15/24 18:37 IMPRESSION: Nasogastric tube projects over the left upper quadrant, as detailed above. Brain MRI 11/16/24 14:12 IMPRESSION: 1. No significant change in chronic infarcts, the largest involving the plantar to the right middle cerebral and portions of the anterior cerebral artery vascular distribution. No acute intracranial process. Labs Labs: Laboratory Results - last 24 hr 11/16/24 11/16/24 11/17/24 15:35 20:13 05:58 WBC 11.9 H RBC 3.69 L Hgb 10.2 L Hct 32.6 L MCV 88.3 MCH 27.6 MCHC 31.3 L RDW 15.9 H Plt Count 232 MPV 8.7 Immature Gran % (Auto) 4.4 H Neut % (Auto) 85.0 H Lymph % (Auto) 5.9 L [place] % (Auto) 4.4 Eos % (Auto) 0.0 Baso % (Auto) 0.3 Lymph # (Auto) 0.70 L [place] # (Auto) 0.5 Eos # (Auto) 0.0 Baso # (Auto) 0.0 Abs Immat Gran (auto) 0.53 H Absolute Neuts (auto) 10.1 H Absolute Nucleated RBC 0.000 Nucleated RBC % 0.0 PT 16.3 H INR APTT Sodium Potassium Chloride Carbon Dioxide Anion Gap BUN Creatinine Estim Creat Clear Calc Estimated GFR Glucose POC Capillary Glucose 115 H 137 H Calcium Total Bilirubin AST ALT Alkaline Phosphatase Total Protein Albumin 11/17/24 11/17/24 11/17/24 05:58 05:58 07:38 WBC RBC Hgb Hct MCV MCH MCHC RDW Plt Count MPV Immature Gran % (Auto) Neut % (Auto) Lymph % (Auto) [place] % (Auto) Eos % (Auto) Baso % (Auto) Lymph # (Auto) [place] # (Auto) Eos # (Auto) Baso # (Auto) Abs Immat Gran (auto) Absolute Neuts (auto) Absolute Nucleated RBC Nucleated RBC % PT Cancelled INR 1.3 Cancelled APTT 35.6 Sodium 141 Potassium 4.9 Chloride 114 H Carbon Dioxide 11 L Anion Gap 16 H BUN 87 H D Creatinine 7.73 H Estim Creat Clear Calc 11 Estimated GFR 7 L Glucose 139 H POC Capillary Glucose 130 H Calcium 9.1 Total Bilirubin 0.2 AST 29 ALT 17 Alkaline Phosphatase 125 Total Protein 6.0 L Albumin 2.9 L 11/17/24 11:17 WBC RBC Hgb Hct MCV MCH MCHC RDW Plt Count MPV Immature Gran % (Auto) Neut % (Auto) Lymph % (Auto) [place] % (Auto) Eos % (Auto) Baso % (Auto) Lymph # (Auto) [place] # (Auto) Eos # (Auto) Baso # (Auto) Abs Immat Gran (auto) Absolute Neuts (auto) Absolute Nucleated RBC Nucleated RBC % PT INR APTT Sodium Potassium Chloride Carbon Dioxide Anion Gap BUN Creatinine Estim Creat Clear Calc Estimated GFR Glucose POC Capillary Glucose 116 H Calcium Total Bilirubin AST ALT Alkaline Phosphatase Total Protein Albumin
[2024-11-17] MEDS: MORPHINE SULFATE (*CRX) 2 MG/ML INJ IV PUSH (12:27)
--- NOTE | 2024-11-17 12:46 | CY_PTH ---
PATIENT: Brent Higginbotham LOC: [id number] U#:[id number] AGE/SX: 69/M ROOM: 306 RE11/13/[address]: Eber Delgado MD : [id number] BED: 02 DIS: 11/24/2024 SPEC #: [id number] RECD: 11/23/24 10:16 STATUS: SAHARA RETrevor #: [id number] PEPE: 11/17/24 12:[address]: Lizet Molina DEPT: [facility] Cytology RECD BY: Kiki Martines ENTERED: 11/23/24 10:17 SP TYPE: Cytology OTHR DR: MD Eber Thacker, MD Bradly Young, MD Eufemia Samaniego, DO Anam Daniel, Tissues: A - CSF Procedures: Cytopathology Cytospin
--- NOTE | 2024-11-17 13:47 | WPDUROPN2 ---
Progress Note: A&P Assessment and Plan (1) Acute renal insufficiency: Code(s): N28.9 - Disorder of kidney and ureter, unspecified Status: Acute (2) Bilateral nephrolithiasis: Code(s): N20.0 - Calculus of kidney Status: Acute (3) Hydroureteronephrosis: Code(s): N13.30 - Unspecified hydronephrosis Status: Acute Plan 69y old male with ARF, bilateral renal calculi, and left ureteral calculus POD 1 11/16/24 Cystoscopy, bilateral retrogrades, left ureteroscopy, stone extraction, bilateral ureteral stent placement 4.8 Lebanese contour, complex [place] catheter placement. -cr still rising at 7.73 -maintain litnon -neph managing. -wbc trending back down today. -we will follow peripherally Subjective Subjective Date/Time Seen: 11/17/24 13:47 Principal diagnosis: Renal insufficiency with bilateral renal calculi Interval history: POD 1 Cystoscopy, bilateral retrogrades, left ureteroscopy, stone extraction, bilateral ureteral stent placement 4.8 Lebanese contour, complex [place] catheter placement for acute renal failure still remains encephalopathy/obtunded at the time of my visit; no other acute issues/events overnight or earlier this morning. cr continues to rise despite bilateral stent placement. Review of Systems Review of Systems: All systems reviewed & are unremarkable except as noted in HPI and below ROS unobtainable: Yes unobtainable due to mental status Exam Const: General: comfortable Resp: Effort & Inspection: normal respiratory effort Objective Data Vital Signs Vital Signs: Vital Signs - 24 hr 11/16/24 14:00 11/16/24 16:00 11/16/24 16:00 Temperature 96.7 F L Pulse Rate 60 65 Respiratory Rate 16 Blood Pressure 135/63 Pulse Oximetry 100 98 Oxygen Delivery Nasal Cannula Oxygen Flow Rate 3 11/16/24 16:00 11/16/24 18:00 11/16/24 20:00 Temperature Pulse Rate 58 L 68 Respiratory Rate Blood Pressure Pulse Oximetry 98 Oxygen Delivery Nasal Cannula Oxygen Flow Rate 2 11/16/24 20:00 11/16/24 20:03 11/16/24 21:02 Temperature 97.8 F Pulse Rate 67 63 Respiratory Rate 23 H Blood Pressure 132/54 L Pulse Oximetry 99 98 Oxygen Delivery Nasal Cannula Oxygen Flow Rate 3 11/16/24 21:33 11/16/24 22:00 11/17/24 00:00 Temperature Pulse Rate 60 Respiratory Rate Blood Pressure Pulse Oximetry 98 98 Oxygen Delivery Nasal Cannula Nasal Cannula Oxygen Flow Rate 2 2 11/17/24 00:00 11/17/24 00:16 11/17/24 02:00 Temperature 98.8 F Pulse Rate 62 63 62 Respiratory Rate 22 H Blood Pressure 146/46 H Pulse Oximetry 97 Oxygen Delivery Oxygen Flow Rate 11/17/24 03:44 11/17/24 04:00 11/17/24 04:00 Temperature 99.0 F Pulse Rate 60 68 Respiratory Rate 22 H Blood Pressure 134/44 L Pulse Oximetry 98 98 Oxygen Delivery Nasal Cannula Oxygen Flow Rate 2 11/17/24 06:00 11/17/24 07:53 11/17/24 08:00 Temperature 96.8 F L Pulse Rate 66 66 61 Respiratory Rate 12 Blood Pressure 139/58 L Pulse Oximetry 100 Oxygen Delivery Oxygen Flow Rate 11/17/24 08:50 11/17/24 10:00 11/17/24 11:24 Temperature 98.0 F Pulse Rate 64 65 Respiratory Rate 22 H Blood Pressure 147/59 H Pulse Oximetry 99 100 Oxygen Delivery Nasal Cannula Oxygen Flow Rate 2 Intake/Output Intake/Output: Intake & Output 11/14/24 11/15/24 11/16/24 11/17/24 23:59 23:59 23:59 23:59 Intake Total 3465.8 1504.2 1400.0 1000 Output Total 502 633 8973 600 Balance 2765.8 1104.2 385.0 400 Meds/Results Medications: Active Medications Generic Name Dose Route Start Last Admin Trade Name Freq PRN Reason Stop Dose Admin Acetaminophen 650 mg 11/13/24 21:38 Acetaminophen 325 Mg Tablet PO Q8H PRN Pain Rated 1-3 Albuterol 2 puff 11/13/24 21:38 Albuterol Sulfate (*Sp) Aerosol 1 Puff INHALATION Q4H PRN Wheezing Artificial Tears 1 drop 11/13/24 21:58 Artificial Tears Ophth Soln 15 Ml Bottle EACH EYE QID PRN Dry Eye(s) Aspirin 81 mg 11/14/24 09:00 11/17/24 09:22 Aspirin 81 Mg Enteric Tablet PO Not Given DAILY BERNARDO Benzonatate 100 mg 11/13/24 21:38 Benzonatate 100 Mg Capsule PO TID PRN cough Brimonidine Tartrate 1 drop 11/14/24 06:00 11/17/24 06:08 Brimonidine Tartrate 0.2% Op Soln 5 Ml Btl EACH EYE 1 drop Q8HR BERNARDO Administration Brinzolamide 1 drop 11/14/24 06:00 11/17/24 06:09 Brinzolamide 1% Ophth Susp 10 Ml EACH EYE 1 drop Q8HR BERNARDO Administration Cholestyramine Resin 4 gm 11/14/24 10:00 11/17/24 11:13 Cholestyramine (W/ Sugar) 4 Gm Powd.Pack PO Not Given 1000,1300,1800 BERNARDO Dextrose 12.5 gm 11/13/24 21:30 Dextrose 50% 25 Gm/50 Ml Syringe IV PUSH PRN PRN Hypoglycemia Protocol Escitalopram Oxalate 15 mg 11/14/24 09:00 11/17/24 09:23 Escitalopram Oxalate 5 Mg Tablet PO Not Given QAM BERNARDO Fluticasone/Umeclidinium/Vilanterol 1 puff 11/14/24 08:00 11/16/24 08:04 Fluticasone/Umeclidin/Vilanter 100-62.5-25 Mcg Ellipta INHALATION Not Given DAILYRT BERNARDO Gabapentin 100 mg 11/14/24 09:00 11/17/24 09:23 Gabapentin 100 Mg Capsule PO Not Given TID BERNARDO Glucagon 1 mg 11/13/24 21:30 Glucagon For Inj 1 Mg Vial IM PRN PRN Hypoglycemia Protocol Glucose 15 gm 11/13/24 21:30 Glucose Oral Gel 15 Gm Of Glucse In 37.5 Gm Tube PO PRN PRN Hypoglycemia Protocol Guaifenesin/Dextromethorphan 10 ml 11/13/24 21:38 Guaifenesin/Dextromethorphan 10 Ml Udc PO Q4-6H PRN Cough Heparin Sodium (Porcine) 5,000 units 11/14/24 22:00 11/17/24 06:08 Heparin Sodium 5,000 Units/Ml Vial SUB-Q 5,000 units Q8HR BERNARDO Administration Sodium Chloride 1,000 mls @ 75 mls/hr 11/13/24 17:55 11/17/24 09:24 Normal Saline Iv IV CONT 75 mls/hr .[id number] BERNARDO Administration Dextrose 1,000 mls @ 100 mls/hr 11/13/24 21:30 Dextrose 5% 1,000 Ml IVPB PRN PRN Hypoglycemia Protocol Dextrose 1,000 mls @ 50 mls/hr 11/17/24 12:24 Dextrose 10% IV CONT .Q20H PRN if PN is interrupted Amino Acids/Electrolytes/Dextrose 1,000 mls @ 80 mls/hr 11/17/24 13:00 Clinimix E 4.25%/5% Solution IV CONT .[id number] [facility]ENDING [facility] Protocol Fat Emulsion Intravenous 250 mls @ 20.833 mls/hr 11/17/24 13:00 Lipids 20% IVPB Q24H [facility]END[facility] TO [facility] Insulin Aspart 3 - 6 units 11/14/24 08:00 11/17/24 12:00 Insulin Aspart (*Bkc) 100 Units/Ml SUB-Q Not Given TIDWM [facility] Protocol Lidocaine 1 patch 11/14/24 09:00 11/16/24 11:14 Lidocaine 5% Patch TOPICAL Not Given DAILY BERNARDO Loperamide HCl 2 mg 11/13/24 21:38 Loperamide Hcl 2 Mg Capsule PO Q6H PRN Diarrhea Melatonin 5 mg 11/13/24 22:00 11/16/24 21:20 Melatonin 5 Mg Tablet PO 5 mg HS BERNARDO Administration Morphine Sulfate 2 mg 11/17/24 10:55 11/17/24 12:27 Morphine Sulfate (*Crx) 2 Mg/Ml Inj IV PUSH 2 mg ONCE PRN Administration Pain Ondansetron HCl 4 mg 11/13/24 21:38 Ondansetron Hcl Odt 4 Mg Tablet PO Q4H PRN Nausea And Vomiting Oxycodone HCl 5 mg 11/13/24 21:38 Oxycodone Hcl (*Crx) 5 Mg Tab Ir PO QHS PRN Pain Rated 4-6 Pantoprazole Sodium 40 mg 11/17/24 09:00 11/17/24 12:00 Pantoprazole Sodium Iv 40 Mg Vial IV PUSH 40 mg QAM BERN[facility]O Administration Psyllium Hydrophilic Mucilloid 1 packet 11/13/24 22:00 Psyllium Sugar Free Powder Packet PO DAILY PRN constipation Rosuvastatin Calcium 40 mg 11/13/24 22:00 11/16/24 21:20 Rosuvastatin 20 Mg Tablet PO 40 mg QHS [facility] Administration Senna 8.6 mg 11/13/24 21:38 Sennosides 8.6 Mg Tablet PO DAILY PRN Constipation Tamsulosin HCl 0.4 mg 11/14/24 09:00 11/17/24 09:23 Tamsulosin Hcl 0.4 Mg Capsule PO Not Given QAM [facility] Radiology Results: ITS Impressions Chest X-Ray 11/13/24 15:04 IMPRESSION: No focal consolidation. Mild perihilar bronchial wall thickening, findings suggestive of respiratory bronchiolitis. Chest/Abdomen/Pelvis CT 11/14/24 09:27 IMPRESSION: Bilateral renal calculi. Asymmetric mural thickening of the base of the bladder for which direct visualization is recommended. Findings which may represent partial distal bowel obstruction with significant air distention of the colon just before the anastomotic staple line and distal decompression. Significant gallbladder distention with trace surrounding inflammatory change. Bibasilar atelectasis. Renal Ultrasound 11/14/24 11:43 Impression: No definite abnormality seen. Visualization of the kidneys is somewhat suboptimal related to patient body habitus. Head CT 11/14/24 18:07 IMPRESSION: No acute intracranial findings. 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 Abdomen/Pelvis CT 11/15/24 09:13 IMPRESSION: 1. Bilateral nephrolithiasis with interval advancement of a 3-4 mm at least partially obstructing stone now at the left ureterovesicular junction with mild left hydroureteronephrosis. 2. Likely intermittent/partial small bowel obstruction secondary to a volvulus with at least 360 degrees twist of the distalmost small bowel immediately proximal to ileocolic anastomosis with no interval change in mild dilation of a few loops of more proximal small bowel. 3. Prominent dilation of the gallbladder to 6.5 cm but without evident wall thickening or pericholecystic infiltrate stranding to more specifically suggest acute cholecystitis. Correlate with the right upper quadrant ultrasound or HIDA scan. 4. Very small right and trace left pleural effusions and minimal perihepatic ascites. Abdomen Ultrasound 11/15/24 09:16 IMPRESSION: Fatty infiltration of the liver. Hydropic, fluid-filled gallbladder with dependent stones suspected. Hepatobiliary Scan Nuclear Medicine 11/15/24 15:34 IMPRESSION: 1. Normal hepatobiliary scan. Brain MRI 11/16/24 14:12 IMPRESSION: 1. No significant change in chronic infarcts, the largest involving the plantar to the right middle cerebral and portions of the anterior cerebral artery vascular distribution. No acute intracranial process. Abdomen X-Ray 11/17/24 13:20 IMPRESSION: Likely partial, intermittent bowel obstruction, as detailed above. Labs Labs: Laboratory Results - last 24 hr 11/16/24 11/16/24 11/17/24 15:35 20:13 05:58 WBC 11.9 H RBC 3.69 L Hgb 10.2 L Hct 32.6 L MCV 88.3 MCH 27.6 MCHC 31.3 L RDW 15.9 H Plt Count 232 MPV 8.7 Immature Gran % (Auto) 4.4 H Neut % (Auto) 85.0 H Lymph % (Auto) 5.9 L [place] % (Auto) 4.4 Eos % (Auto) 0.0 Baso % (Auto) 0.3 Lymph # (Auto) 0.70 L [place] # (Auto) 0.5 Eos # (Auto) 0.0 Baso # (Auto) 0.0 Abs Immat Gran (auto) 0.53 H Absolute Neuts (auto) 10.1 H Absolute Nucleated RBC 0.000 Nucleated RBC % 0.0 PT 16.3 H INR APTT Sodium Potassium Chloride Carbon Dioxide Anion Gap BUN Creatinine Estim Creat Clear Calc Estimated GFR Glucose POC Capillary Glucose 115 H 137 H Calcium Total Bilirubin AST ALT Alkaline Phosphatase Total Protein Albumin 11/17/24 11/17/24 11/17/24 05:58 05:58 07:38 WBC RBC Hgb Hct MCV MCH MCHC RDW Plt Count MPV Immature Gran % (Auto) Neut % (Auto) Lymph % (Auto) [place] % (Auto) Eos % (Auto) Baso % (Auto) Lymph # (Auto) [place] # (Auto) Eos # (Auto) Baso # (Auto) Abs Immat Gran (auto) Absolute Neuts (auto) Absolute Nucleated RBC Nucleated RBC % PT Cancelled INR 1.3 Cancelled APTT 35.6 Sodium 141 Potassium 4.9 Chloride 114 H Carbon Dioxide 11 L Anion Gap 16 H BUN 87 H D Creatinine 7.73 H Estim Creat Clear Calc 11 Estimated GFR 7 L Glucose 139 H POC Capillary Glucose 130 H Calcium 9.1 Total Bilirubin 0.2 AST 29 ALT 17 Alkaline Phosphatase 125 Total Protein 6.0 L Albumin 2.9 L 11/17/24 11:17 WBC RBC Hgb Hct MCV MCH MCHC RDW Plt Count MPV Immature Gran % (Auto) Neut % (Auto) Lymph % (Auto) [place] % (Auto) Eos % (Auto) Baso % (Auto) Lymph # (Auto) [place] # (Auto) Eos # (Auto) Baso # (Auto) Abs Immat Gran (auto) Absolute Neuts (auto) Absolute Nucleated RBC Nucleated RBC % PT INR APTT Sodium Potassium Chloride Carbon Dioxide Anion Gap BUN Creatinine Estim Creat Clear Calc Estimated GFR Glucose POC Capillary Glucose 116 H Calcium Total Bilirubin AST ALT Alkaline Phosphatase Total Protein Albumin
[2024-11-17 14:51] LABS: Hepatitis B Surface Antigen Negative (Negative)
--- NOTE | 2024-11-17 14:51 | W.PM.PROC2 ---
Procedure Note - Detailed Date of Procedure 11/17/24 Pre-op Diagnosis Acute renal failure Post-op Diagnosis Same Procedure Performed Right IJ Marshal dialysis catheter placement using ultrasound guidance Surgeon Anma Daniel, DO Anesthesia Local (1% Lidocaine) Indications Worsening acute renal failure Findings Sono site ultrasound was used to identify the right internal jugular vein. This was visualized as a compressible vessel just lateral to the pulsatile carotid artery. An 18 gauge introducer needle was advanced under ultrasound guidance directly into the lumen of the right internal jugular vein. Dark nonpulsatile blood was aspirated. The 12 Spanish triple-lumen 16 cm dialysis catheter was advanced without complication. All 3 lumens functioned with ease. Chest x-ray is pending to confirm placement. Description of Procedure Procedure, risks, benefits, and alternatives were discussed with the patient. Written consent was obtained and placed in chart prior to procedure. Patient was placed supine in hospital bed and placed in slight Trendelenburg position. Time-out was done to confirm patient and procedure. The right neck and chest area was prepped and draped in sterile fashion using chlorhexidine prep. SonoSite ultrasound was used to identify the right internal jugular vein. 1% lidocaine was infiltrated directly over this area. An 18 gauge introducer needle was advanced under ultrasound guidance directly into the right internal jugular vein. Dark nonpulsatile blood was aspirated. A 0.035 in guidewire was then advanced through the needle. The guidewire advanced smoothly. The needle was then withdrawn leaving the guidewire in place. A small juanis incision was made at the insertion site using an 11 blade scalpel. The blue dilators were then advanced over the guidewire to dilate the vessel. The 12 Spanish triple lumen 16 cm dialysis catheter was then advanced over the guidewire until it was in place. The guidewire was removed. All 3 lumens were then aspirated and flushed with sterile saline. All 3 lumens function with ease. Caps were placed over the lumens. Glue was placed at the insertion site and the catheter was secured in place using 3 0 nylon simple interrupted sutures. A Tegaderm dressing was then applied over top. The patient was then sat up in bed and chest x-ray was ordered to confirm placement. Implants 12 Spanish triple-lumen 16 cm dialysis catheter Estimated Blood Loss 5 Complications No immediate complications Condition Stable Disposition No change [facility] Billing Surgery - Charge Forward: Surgery Billing
[2024-11-17] MEDS: LIDOCAINE 1% LOCAL INJ 2 ML AMPUL 5 ML INFILTRATE (14:54)
[2024-11-17 15:09] LABS: Hepatitis B Surface Anti Res Negative
--- NOTE | 2024-11-17 15:43 | PM.IMPN ---
Progress Note: A&P Assessment and Plan (1) Acute renal failure: Qualifiers: Acute renal failure type: unspecified Qualified Code(s): N17.9 - Acute kidney failure, unspecified Code(s): N17.9 - Acute kidney failure, unspecified Status: Acute Assessment and Plan: - creatinine 5.43, BUN 61, GFR 11 - baseline: 1.1-1.3 - renal ultrasound unremarkable Cr 7.73, BUN 87 today continue IVF and [place] catheter s/p cystoscopy with left ureteroscopy and stone extraction with bilateral stent I discussed with Nephrology, Dr cMgrath, he wants to proceed with dialysis, dialysis catheter today Nephrology and Urology following (2) Hypotension: Qualifiers: Hypotension type: hypotension due to hypovolemia Qualified Code(s): E86.1 - Hypovolemia Code(s): I95.9 - Hypotension, unspecified Status: Resolved Assessment and Plan: patient was hypotensive on presentation r/o infection HIDA negative Discontinued Rocephin and Flagyl monitor cultures (3) Type 2 diabetes mellitus: Qualifiers: 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 yard use Diabetes mellitus complication status: with hypoglycemia Diabetes mellitus complication detail: without coma Qualified Code(s): E11.649 - Type 2 diabetes mellitus with hypoglycemia without coma; Z79.4 - equipment operator intermodal yard (current) use of insulin Code(s): E11.9 - Type 2 diabetes mellitus without complications Status: Chronic Assessment and Plan: NPO CCI with accucheks and adjust with clinical course (4) Hypertension: Qualifiers: Hypertension type: primary hypertension Qualified Code(s): I10 - Essential (primary) hypertension Code(s): I10 - Essential (primary) hypertension Status: Chronic Assessment and Plan: titrate home meds with clinical course Plan Partial SBO CT AP reviewed NPO, IVF, NG tube Contrast enema per Gen surgery Gen surgery following monitor Gall bladder distension Rule out Acute cholecystitis CT AP reviewed HIDA scan normal discontinued Rocephin and Metronidazole Blood culture Hydrops Gallbladder US abd reviewed Gen surgery following AMS Seizure vs Stroke vs Metabolic CT head no acute changes MRI brain, EEG Ammonia <9 May be from Uremia, however BUN is 70 this morning LP and CSF studies ordered Neurology consulted Diet: heart healthy DVT Prophylaxis: Sq Heparin Code Status: DNR Subjective Date/time seen: 07/11/25 15:43 Interval history: Patient still obtunded NG tube draining coffee ground fluid starting TPN today Review of Systems Review of Systems: All systems reviewed & are unremarkable except as noted in HPI and below Exam Const: General: comfortable and no acute distress Other: , male, chronically ill-appearing HENMT: Face/Nose/Sinus: Normal nares present Mouth: Yes dry mucous membranes Eyes: General: appearance normal, both eyes and all related structures Sclera: sclerae normal Pupils: Equal, round and reactive pupils present EOM: EOMs intact bilaterally Resp: Effort & Inspection: normal respiratory effort Auscultation: clear to auscultation bilaterally Cardio: Rate: regular rate Rhythm: regular rhythm Other: S1-S2 present without murmur, rub, ectopy GI: Other: Abdomen soft, nondistended, nontender. quiet but normoactive bowel sounds in all quadrants. Skin: General skin exam: normal color Other: skin tear to the left upper extremity, Steri-Stripped. No active bleeding. Various areas of ecchymosis to bilateral upper extremities, no particular pattern. In various stages of healing. Neuro: Cranial nerves: Yes Equal, round and reactive pupils present Speech: normal speech Motor exam (neuro): 5/5 motor strength present throughout Sensory Exam: normal sensation Other: A&O x3 Extrem: General: normal to inspection Psych: Mental Status: mental status grossly normal Affect: normal affect Other: fair insight and judgment. Objective Data Vital Signs Vital Signs: Vital Signs - 24 hr 11/16/24 16:00 11/16/24 16:00 11/16/24 16:00 Temperature 96.7 F L Pulse Rate 65 58 L Respiratory Rate 16 Blood Pressure 135/63 Pulse Oximetry 100 98 Oxygen Delivery Nasal Cannula Oxygen Flow Rate 3 11/16/24 18:00 11/16/24 20:00 11/16/24 20:00 Temperature Pulse Rate 68 67 Respiratory Rate Blood Pressure Pulse Oximetry 98 Oxygen Delivery Nasal Cannula Oxygen Flow Rate 2 11/16/24 20:03 11/16/24 21:02 11/16/24 21:33 Temperature 97.8 F Pulse Rate 63 Respiratory Rate 23 H Blood Pressure 132/54 L Pulse Oximetry 99 98 98 Oxygen Delivery Nasal Cannula Nasal Cannula Oxygen Flow Rate 3 2 11/16/24 22:00 11/17/24 00:00 11/17/24 00:00 Temperature Pulse Rate 60 62 Respiratory Rate Blood Pressure Pulse Oximetry 98 Oxygen Delivery Nasal Cannula Oxygen Flow Rate 2 11/17/24 00:16 11/17/24 02:00 11/17/24 03:44 Temperature 98.8 F 99.0 F Pulse Rate 63 62 60 Respiratory Rate 22 H 22 H Blood Pressure 146/46 H 134/44 L Pulse Oximetry 97 98 Oxygen Delivery Oxygen Flow Rate 11/17/24 04:00 11/17/24 04:00 11/17/24 06:00 Temperature Pulse Rate 68 66 Respiratory Rate Blood Pressure Pulse Oximetry 98 Oxygen Delivery Nasal Cannula Oxygen Flow Rate 2 11/17/24 07:53 11/17/24 08:00 11/17/24 08:50 Temperature 96.8 F L Pulse Rate 66 61 Respiratory Rate 12 Blood Pressure 139/58 L Pulse Oximetry 100 99 Oxygen Delivery Nasal Cannula Oxygen Flow Rate 2 11/17/24 10:00 11/17/24 11:24 11/17/24 15:33 Temperature 98.0 F 97.7 F Pulse Rate 64 65 62 Respiratory Rate 22 H 12 Blood Pressure 147/59 H 145/62 H Pulse Oximetry 100 98 Oxygen Delivery Oxygen Flow Rate Intake/Output Intake/Output: Intake & Output 11/14/24 11/15/24 11/16/24 11/17/24 23:59 23:59 23:59 23:59 Intake Total 3465.8 1504.2 1400.0 1000 Output Total 832 499 2184 600 Balance 2765.8 1104.2 385.0 400 Meds/Results Medications: Active Medications Generic Name Dose Route Start Last Admin Trade Name Freq PRN Reason Stop Dose Admin Acetaminophen 650 mg 11/13/24 21:38 Acetaminophen 325 Mg Tablet PO Q8H PRN Pain Rated 1-3 Albuterol 2 puff 11/13/24 21:38 Albuterol Sulfate (*Sp) Aerosol 1 Puff INHALATION Q4H PRN Wheezing Artificial Tears 1 drop 11/13/24 21:58 Artificial Tears Ophth Soln 15 Ml Bottle EACH EYE QID PRN Dry Eye(s) Aspirin 81 mg 11/14/24 09:00 11/17/24 09:22 Aspirin 81 Mg Enteric Tablet PO Not Given DAILY BERNARDO Benzonatate 100 mg 11/13/24 21:38 Benzonatate 100 Mg Capsule PO TID PRN cough Brimonidine Tartrate 1 drop 11/14/24 06:00 11/17/24 06:08 Brimonidine Tartrate 0.2% Op Soln 5 Ml Btl EACH EYE 1 drop Q8HR BERNARDO Administration Brinzolamide 1 drop 11/14/24 06:00 11/17/24 06:09 Brinzolamide 1% Ophth Susp 10 Ml EACH EYE 1 drop Q8HR BERNARDO Administration Cholestyramine Resin 4 gm 11/14/24 10:00 11/17/24 14:54 Cholestyramine (W/ Sugar) 4 Gm Powd.Pack PO Not Given 1000,1300,1800 BERNARDO Dextrose 12.5 gm 11/13/24 21:30 Dextrose 50% 25 Gm/50 Ml Syringe IV PUSH PRN PRN Hypoglycemia Protocol Escitalopram Oxalate 15 mg 11/14/24 09:00 11/17/24 09:23 Escitalopram Oxalate 5 Mg Tablet PO Not Given QAM B[facility]ARDO Fluticasone/Umeclidinium/Vilanterol 1 puff 11/14/24 08:00 11/16/24 08:04 Fluticasone/Umeclidin/Vilanter 100-62.5-25 Mcg Ellipta INHALATION Not Given DAILYRT B[facility]O Gabapentin 100 mg 11/14/24 09:00 11/17/24 14:54 Gabapentin 100 Mg Capsule PO Not Given TID B[facility]O Glucagon 1 mg 11/13/24 21:30 Glucagon For Inj 1 Mg Vial IM PRN PRN Hypoglycemia Protocol Glucose 15 gm 11/13/24 21:30 Glucose Oral Gel 15 Gm Of Glucse In 37.5 Gm Tube PO PRN PRN Hypoglycemia Protocol Guaifenesin/Dextromethorphan 10 ml 11/13/24 21:38 Guaifenesin/Dextromethorphan 10 Ml Udc PO Q4-6H PRN Cough Heparin Sodium (Porcine) 5,000 units 11/14/24 22:00 11/17/24 06:08 Heparin Sodium 5,000 Units/Ml Vial SUB-Q 5,000 units Q8HR B[facility]ARDO Administration Sodium Chloride 1,000 mls @ 75 mls/hr 11/13/24 17:55 11/17/24 09:24 Normal Saline Iv IV CONT 75 mls/hr .[id number] [facility] Administration Dextrose 1,000 mls @ 100 mls/hr 11/13/24 21:30 Dextrose 5% 1,000 Ml IVPB PRN PRN Hypoglycemia Protocol Dextrose 1,000 mls @ 50 mls/hr 11/17/24 12:24 Dextrose 10% IV CONT .Q20H PRN if PN is interrupted Amino Acids/Electrolytes/Dextrose 1,000 mls @ 80 mls/hr 11/17/24 13:00 Clinimix E 4.25%/5% Solution IV CONT .[id number] [facility] Protocol Fat Emulsion Intravenous 250 mls @ 20.833 mls/hr 11/17/24 13:00 Lipids 20% IVPB Q24H [facility] Sodium Chloride 1,000 mls @ 999 mls/hr 11/17/24 15:04 Normal Saline Iv IV CONT 11/17/24 16:04 .Q1H1M ONE Insulin Aspart 3 - 6 units 11/14/24 08:00 11/17/24 12:00 Insulin Aspart (*Bkc) 100 Units/Ml SUB-Q Not Given TIDWM [facility] Protocol Lidocaine 1 patch 11/14/24 09:00 11/17/24 14:53 Lidocaine 5% Patch TOPICAL Not Given DAILY [facility] Loperamide HCl 2 mg 11/13/24 21:38 Loperamide Hcl 2 Mg Capsule PO Q6H PRN Diarrhea Melatonin 5 mg 11/13/24 22:00 11/16/24 21:20 Melatonin 5 Mg Tablet PO 5 mg HS [facility] Administration Morphine Sulfate 2 mg 11/17/24 10:55 11/17/24 12:27 Morphine Sulfate (*Crx) 2 Mg/Ml Inj IV PUSH 2 mg ONCE PRN Administration Pain Ondansetron HCl 4 mg 11/13/24 21:38 Ondansetron Hcl Odt 4 Mg Tablet PO Q4H PRN Nausea And Vomiting Oxycodone HCl 5 mg 11/13/24 21:38 Oxycodone Hcl (*Crx) 5 Mg Tab Ir PO QHS PRN Pain Rated 4-6 Pantoprazole Sodium 40 mg 11/17/24 09:00 11/17/24 12:00 Pantoprazole Sodium Iv 40 Mg Vial IV PUSH 40 mg QAM [facility] Administration Psyllium Hydrophilic Mucilloid 1 packet 11/13/24 22:00 Psyllium Sugar Free Powder Packet PO DAILY PRN constipation Rosuvastatin Calcium 40 mg 11/13/24 22:00 11/16/24 21:20 Rosuvastatin 20 Mg Tablet PO 40 mg QHS [facility] Administration Senna 8.6 mg 11/13/24 21:38 Sennosides 8.6 Mg Tablet PO DAILY PRN Constipation Tamsulosin HCl 0.4 mg 11/14/24 09:00 11/17/24 09:23 Tamsulosin Hcl 0.4 Mg Capsule PO Not Given [facility] Radiology Results: ITS Impressions Chest/Abdomen/Pelvis CT 11/14/24 09:27 IMPRESSION: Bilateral renal calculi. Asymmetric mural thickening of the base of the bladder for which direct visualization is recommended. Findings which may represent partial distal bowel obstruction with significant air distention of the colon just before the anastomotic staple line and distal decompression. Significant gallbladder distention with trace surrounding inflammatory change. Bibasilar atelectasis. Renal Ultrasound 11/14/24 11:43 Impression: No definite abnormality seen. Visualization of the kidneys is somewhat suboptimal related to patient body habitus. Head CT 11/14/24 18:07 IMPRESSION: No acute intracranial findings. 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 Abdomen/Pelvis CT 11/15/24 09:13 IMPRESSION: 1. Bilateral nephrolithiasis with interval advancement of a 3-4 mm at least partially obstructing stone now at the left ureterovesicular junction with mild left hydroureteronephrosis. 2. Likely intermittent/partial small bowel obstruction secondary to a volvulus with at least 360 degrees twist of the distalmost small bowel immediately proximal to ileocolic anastomosis with no interval change in mild dilation of a few loops of more proximal small bowel. 3. Prominent dilation of the gallbladder to 6.5 cm but without evident wall thickening or pericholecystic infiltrate stranding to more specifically suggest acute cholecystitis. Correlate with the right upper quadrant ultrasound or HIDA scan. 4. Very small right and trace left pleural effusions and minimal perihepatic ascites. Abdomen Ultrasound 11/15/24 09:16 IMPRESSION: Fatty infiltration of the liver. Hydropic, fluid-filled gallbladder with dependent stones suspected. Hepatobiliary Scan [facility] 11/15/24 15:34 IMPRESSION: 1. Normal hepatobiliary scan. Brain MRI 11/16/24 14:12 IMPRESSION: 1. No significant change in chronic infarcts, the largest involving the plantar to the right middle cerebral and portions of the anterior cerebral artery vascular distribution. No acute intracranial process. Abdomen X-Ray 11/17/24 13:20 IMPRESSION: Likely partial, intermittent bowel obstruction, as detailed above. Chest X-Ray 11/17/24 15:19 IMPRESSION: Tip of the temporary dialysis catheter is at the cavoatrial junction. Labs Labs: Laboratory Results - last 24 hr 11/16/24 11/16/24 11/17/24 15:35 20:13 05:58 WBC 11.9 H RBC 3.69 L Hgb 10.2 L Hct 32.6 L MCV 88.3 MCH 27.6 MCHC 31.3 L RDW 15.9 H Plt Count 232 MPV 8.7 Immature Gran % (Auto) 4.4 H Neut % (Auto) 85.0 H Lymph % (Auto) 5.9 L [place] % (Auto) 4.4 Eos % (Auto) 0.0 Baso % (Auto) 0.3 Lymph # (Auto) 0.70 L [place] # (Auto) 0.5 Eos # (Auto) 0.0 Baso # (Auto) 0.0 Abs Immat Gran (auto) 0.53 H Absolute Neuts (auto) 10.1 H Absolute Nucleated RBC 0.000 Nucleated RBC % 0.0 PT 16.3 H INR APTT Sodium Potassium Chloride Carbon Dioxide Anion Gap BUN Creatinine Estim Creat Clear Calc Estimated GFR Glucose POC Capillary Glucose 115 H 137 H Calcium Total Bilirubin AST ALT Alkaline Phosphatase Total Protein Albumin CSF Glucose CSF Total Protein Hep Bs Antigen Hep Bs Antibody Hep B Core Total Ab 11/17/24 11/17/24 11/17/24 05:58 05:58 06:58 WBC RBC Hgb Hct MCV MCH MCHC RDW Plt Count MPV Immature Gran % (Auto) Neut % (Auto) Lymph % (Auto) [place] % (Auto) Eos % (Auto) Baso % (Auto) Lymph # (Auto) [place] # (Auto) Eos # (Auto) Baso # (Auto) Abs Immat Gran (auto) Absolute Neuts (auto) Absolute Nucleated RBC Nucleated RBC % PT Cancelled INR 1.3 Cancelled APTT 35.6 Sodium 141 Potassium 4.9 Chloride 114 H Carbon Dioxide 11 L Anion Gap 16 H BUN 87 H D Creatinine 7.73 H Estim Creat Clear Calc 11 Estimated GFR 7 L Glucose 139 H POC Capillary Glucose Calcium 9.1 Total Bilirubin 0.2 AST 29 ALT 17 Alkaline Phosphatase 125 Total Protein 6.0 L Albumin 2.9 L CSF Glucose CSF Total Protein Hep Bs Antigen Negative Hep Bs Antibody Negative Hep B Core Total Ab Cancelled 11/17/24 11/17/24 11/17/24 07:38 11:17 13:13 WBC RBC Hgb Hct MCV MCH MCHC RDW Plt Count MPV Immature Gran % (Auto) Neut % (Auto) Lymph % (Auto) [place] % (Auto) Eos % (Auto) Baso % (Auto) Lymph # (Auto) [place] # (Auto) Eos # (Auto) Baso # (Auto) Abs Immat Gran (auto) Absolute Neuts (auto) Absolute Nucleated RBC Nucleated RBC % PT INR APTT Sodium Potassium Chloride Carbon Dioxide Anion Gap BUN Creatinine Estim Creat Clear Calc Estimated GFR Glucose POC Capillary Glucose 130 H 116 H Calcium Total Bilirubin AST ALT Alkaline Phosphatase Total Protein Albumin CSF Glucose 105 H CSF Total Protein 81 H Hep Bs Antigen Hep Bs Antibody Hep B Core Total Ab Quality VTE Prophylaxis VTE prophylaxis: mechanical ordered
[2024-11-17 15:51] LABS: Nucleated Cell CSF 0 /uL (0-5); Red Blood Cell CSF 0 (0-2)
--- NOTE | 2024-11-17 16:53 | P.CONGI_ITS ---
Assessment and Plan Assessment and plan (1) SBO (small bowel obstruction): Code(s): K56.609 - Unspecified intestinal obstruction, unspecified as to partial versus complete obstruction Status: Acute Assessment and Plan: managed by surgery NGT in place no indication for endoscopy evaluation (2) Small bowel volvulus: Code(s): K56.2 - Volvulus Status: Acute (3) Dilated gallbladder: Code(s): K82.8 - Other specified diseases of gallbladder Status: Acute Assessment and Plan: hida scan negative for cholecystitis and normal liver enzymes (4) Acute renal failure: Qualifiers: Acute renal failure type: unspecified Qualified Code(s): N17.9 - Acute kidney failure, unspecified Code(s): N17.9 - Acute kidney failure, unspecified Status: Acute Assessment and Plan: worsening renal failure, will start dialysis this is probably contributing to confusional status with uremia (5) Metabolic encephalopathy: Code(s): G93.41 - Metabolic encephalopathy Status: Acute (6) Chronic obstructive pulmonary disease: Code(s): J44.9 - Chronic obstructive pulmonary disease, unspecified Status: Acute GI Consult Note Consult date/time: 11/17/24 16:53 Reason for consult: sbo HPI: Brent Higginbotham is a 69 year old male history of CVA, CAD (s/p stent placement), COPD, JAMES intolerant of CPAP, diabetes mellitus, hypertension, and colon cancer (s/p colectomy and radiation 3 yrs ago per chart) admitted 11/14/24 with SBO. He is obtunded and history obtained from records. He was brought here with generalized weakness x1 week and lack of appetite. CT showed likely intermittent/partial small bowel obstruction secondary to a volvulus with at least 360 degrees twist of the distalmost small bowel immediately proximal to ileocolic anastomosis with no interval change in mild dilation of a few loops of more proximal small bowel. NGT in place with dark material, also noted worsening renal failure and HD catheter just placed by surgery, plan is to start dialysis. Still no BM and will start TPN. hgb stable 10. On iv protonix. Review of Systems 2 Review of Systems: ROS unobtainable: Yes unobtainable due to mental status PMFSH Past Medical History Medical History Coronary artery disease Benign prostatic hyperplasia Tobacco abuse Chronic obstructive pulmonary disease Obstructive sleep apnea Intolerant of CPAP Hypertension Type 2 diabetes mellitus Cerebrovascular accident Surgical History Surgical History History of coronary artery stent placement History of cardiac catheterization History of partial colectomy Family History Family History Other Family history non-contributory Social History Social History Social History: Surrogate medical decision maker: Clarita Hobbs, mother. Code status: Full code. Smoking packs per day: 1 Smoking cigarettes per day: 20.0 Years smoked: 50 Smoking pack-years: 50.00 Smoking status: Current every day smoker Tobacco type: cigarettes Alcohol intake: former Substance use: never Do You Feel Safe in your Home?: Yes Lack of Transportation: No Lack of Food: Never True Current Housing: I Have Housing Concerned About Future Housing: No Difficulty Paying Gas/Electric Bills: No Difficulty Paying for Meds: No Currently Unemployed: No Education: High School Diploma/GED Difficulty w/ Childcare or Family Care: No Additional living arrangements comments: Resident at [facility]. 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 Spiritual care concerns: No Meds Home Medications and Allergies Home Medications ?Medication ?Instructions ?Recorded ?Confirmed ?Type acetaminophen 325 mg tablet 650 mg PO Q8H PRN Pain, Mild 11/07/23 11/13/24 History albuterol sulfate 90 mcg/actuation 2 puff inhalation Q4H PRN Wheezing 11/07/23 11/13/24 History aerosol inhaler aspirin 81 mg tablet,delayed 81 mg PO DAILY 11/07/23 11/13/24 History release cabergoline 0.5 mg tablet 0.5 mg PO 2XW 11/07/23 11/13/24 History carboxymethylcellulose sodium 0.5 1 drp EACH EYE QID PRN Dry Eyes 11/07/23 11/13/24 History % eye drops in a dropperette (Refresh Plus) carvedilol 3.125 mg tablet 3.125 mg PO BID 11/07/23 11/13/24 History dextromethorphan-guaifenesin 10 10 ml PO Q4-6H PRN Cough 11/07/23 11/13/24 History mg-100 mg/5 mL oral syrup escitalopram oxalate 20 mg tablet 15 mg PO QAM 11/07/23 11/13/24 History gabapentin 100 mg capsule 100 mg PO TID 11/07/23 11/13/24 History glipizide 5 mg tablet 5 mg PO QAM 11/07/23 11/13/24 History loperamide 2 mg capsule 2 mg PO Q6H PRN Diarrhea 11/07/23 11/13/24 History (Anti-Diarrheal (loperamide)) melatonin 5 mg tablet 5 mg PO HS 11/07/23 11/13/24 History ondansetron 4 mg disintegrating 4 mg PO Q4H PRN Nausea And Vomiting 11/07/23 11/13/24 History tablet rosuvastatin 40 mg tablet 40 mg PO QHS 11/07/23 11/13/24 History sennosides 8.6 mg tablet (Senokot) 8.6 mg PO PRN PRN Constipation 11/07/23 11/13/24 History tamsulosin 0.4 mg capsule 0.4 mg PO QAM 11/07/23 11/13/24 History tiotropium bromide 2.5 2 puff inhalation QAM 11/07/23 11/13/24 History mcg/actuation mist for inhalation (Spiriva Respimat) benzonatate 100 mg capsule 100 mg PO TID PRN cough 05/16/24 11/13/24 History brinzolamide 1 %-brimonidine 0.2 % 1 drp EACH EYE TID 05/18/24 11/13/24 History eye drops,suspension (Simbrinza) budesonide 160 mcg-glycopyr 9 2 inh inhalation BID 05/18/24 11/13/24 History mcg-formot 4.8 mcg/actuation HFA inhaler (Breztri Aerosphere) oxycodone 5 mg tablet 5 mg PO QHS pain 05/18/24 11/13/24 History insulin aspart U-100 100 unit/mL 1 sliding scale dose subcut 05/20/24 11/13/24 Rx (3 mL) subcutaneous pen (Novolog USEASDIRECTD #15 mL FlexPen U-100 Insulin aspart) insulin glargine 100 unit/mL 15 unit (0.15 mL) subcut HS 15 05/20/24 11/13/24 Rx subcutaneous solution (Lantus days #2.25 mL U-100 Insulin) cholestyramine 4 gram oral powder 4 g PO TID 11/13/24 11/13/24 History lidocaine 5 % topical patch 1 patch topical DAILY back pain 11/13/24 11/13/24 History psyllium husk 0.4 gram capsule 0.4 g PO DAILY PRN constipation 11/13/24 11/13/24 History (Fiber (psyllium husk)) Allergies Allergy/AdvReac Type Severity Reaction Status Date / Time hydralazine AdvReac Vomiting Verified 11/13/24 14:12 lisinopril AdvReac Rash Verified 11/13/24 14:12 metformin AdvReac Diarrhea Verified 11/13/24 14:12 pioglitazone AdvReac Nausea Verified 11/13/24 14:12 simvastatin AdvReac Rash Verified 11/13/24 14:12 Vital Signs Vital Signs - 24 hr 11/16/24 18:00 11/16/24 20:00 11/16/24 20:00 Temperature Pulse Rate 68 67 Respiratory Rate Blood Pressure Pulse Oximetry 98 Oxygen Delivery Nasal Cannula Oxygen Flow Rate 2 11/16/24 20:03 11/16/24 21:02 11/16/24 21:33 Temperature 97.8 F Pulse Rate 63 Respiratory Rate 23 H Blood Pressure 132/54 L Pulse Oximetry 99 98 98 Oxygen Delivery Nasal Cannula Nasal Cannula Oxygen Flow Rate 3 2 11/16/24 22:00 11/17/24 00:00 11/17/24 00:00 Temperature Pulse Rate 60 62 Respiratory Rate Blood Pressure Pulse Oximetry 98 Oxygen Delivery Nasal Cannula Oxygen Flow Rate 2 11/17/24 00:16 11/17/24 02:00 11/17/24 03:44 Temperature 98.8 F 99.0 F Pulse Rate 63 62 60 Respiratory Rate 22 H 22 H Blood Pressure 146/46 H 134/44 L Pulse Oximetry 97 98 Oxygen Delivery Oxygen Flow Rate 11/17/24 04:00 11/17/24 04:00 11/17/24 06:00 Temperature Pulse Rate 68 66 Respiratory Rate Blood Pressure Pulse Oximetry 98 Oxygen Delivery Nasal Cannula Oxygen Flow Rate 2 11/17/24 07:53 11/17/24 08:00 11/17/24 08:50 Temperature 96.8 F L Pulse Rate 66 61 Respiratory Rate 12 Blood Pressure 139/58 L Pulse Oximetry 100 99 Oxygen Delivery Nasal Cannula Oxygen Flow Rate 2 11/17/24 10:00 11/17/24 11:24 11/17/24 15:33 Temperature 98.0 F 97.7 F Pulse Rate 64 65 62 Respiratory Rate 22 H 12 Blood Pressure 147/59 H 145/62 H Pulse Oximetry 100 98 Oxygen Delivery Oxygen Flow Rate Exam 2 Const: Other: obtunded HENMT: Other: NGT in place with dark material Eyes: Sclera: sclerae normal Neck: Neck: supple Resp: Effort & Inspection: normal respiratory effort Cardio: Rate: regular rate GI: Inspection: non-distended and obesity GI Palp: Yes Soft to palpation, No Tenderness to palpation present (GI), No Guarding due to palpation present (GI) and No Rebound tenderness present Percussion: Yes normal to percussion Auscultation: normal bowel sounds Skin: General skin exam: normal color Neuro: Other: awake but drowsy, lethargic Extrem: General: normal to inspection Results Labs 11/17/24 05:58 11/17/24 05:58 Labs: Short CBC 11/17/24 Range/Units 05:58 WBC 11.9 H (4.5-10.0) K/mm3 Hgb 10.2 L (14.0-18.0) g/dL Hct 32.6 L (42.0-52.0) % Plt Count 232 (150-375) k/mm3 BMP 11/17/24 05:58 Sodium 141 Potassium 4.9 Chloride 114 H Carbon Dioxide 11 L BUN 87 H D Creatinine 7.73 H Glucose 139 H Calcium 9.1 Liver Function 11/17/24 Range/Units 05:58 Total Bilirubin 0.2 (0.2-1.3) mg/dL AST 29 (17-59) U/L ALT 17 (6-50) U/L Alkaline Phosphatase 125 (38-126) U/L Albumin 2.9 L (3.5-5.1) g/dL
[2024-11-17] MEDS: AMINO ACIDS 4.25%/D5W/LYTES/CA 1,000 ML 80 ML IV CONT (17:30)
[2024-11-17] MEDS: FAT EMULSIONS IV 20% 250 ML 20.83 ML IVPB (17:30)
--- NOTE | 2024-11-17 18:20 | P.PNNP_ITS ---
Progress Note: A&P Assessment and Plan (1) Acute kidney injury: Code(s): N17.9 - Acute kidney failure, unspecified Status: Acute Assessment and Plan: * continues to deteriorate * as noted by admission labs * baseline creatinine seems to run ~ 1.1 - 1.3mg/dl * creatinine 1.13mg/dl in July 2024 * suspect multifactorial etiology: * prerenal factors * hypotension/hemodynamic instability * urinary retention/obstruction * infection (gallbladder?) * other(?) * evaluation to date noted: * urine electrolytes prerenal * rare urine eosinophils -- possible AIN? (however, no rash or peripheral eosinophilia) * CPK mildly elevated (but not enough to affect kidney function) * mild proteinuria * UA without evidence of infection * renal ultrasound negative (but limited due to body habitus) * plan HD today and likely again tomorrow * follow trend of repeat labs and UOP for potential recovery (2) Altered mental status: Code(s): R41.82 - Altered mental status, unspecified Status: Acute Assessment and Plan: * as noted since 11/15 * etiology?? -- related to renal failure?? * Neurology recommendations noted * MRI of brain later today * possible lumbar puncture? * follow mentation (3) SBO (small bowel obstruction): Code(s): K56.609 - Unspecified intestinal obstruction, unspecified as to partial versus complete obstruction Status: Acute Assessment and Plan: * admission CT demonstrated findings which may represent partial distal bowel obstruction with significant air distention of the colon just before the and anastomotic staple line and distal decompression * repeat CT scan noted as well * NG tube in place * Surgery following with recommendations noted * PPN initiated for nutritional support * continue supportive therapy (4) Dilated gallbladder: Code(s): K82.8 - Other specified diseases of gallbladder Status: Acute Assessment and Plan: * admission CT demonstrated significant gallbladder distention with trace surrounding inflammatory change * repeat CT scan noted as well * normal LFTs * abdominal exam positive for diffuse tenderness to palpation (but unreliable given AMS) * no nausea or vomiting * Surgery following - poor surgical candidate if intervention needed... (5) Bilateral nephrolithiasis: Code(s): N20.0 - Calculus of kidney Status: Acute Assessment and Plan: * admission and repeat CT scan noted/reviewed * Urology recommendations noted * s/p cystoscopy, stone extraction, bilateral ureteral stent placement (on 11/16) * continue supportive therapy (6) Hypotension: Qualifiers: Hypotension type: hypotension due to hypovolemia Qualified Code(s): E 86.1 - Hypovolemia Code(s): I95.9 - Hypotension, unspecified Status: Acute Assessment and Plan: * clinically better/resolved * BP medications on hold * on trial of IVFs * follow trend of hemodynamics (7) Type 2 diabetes mellitus: Qualifiers: Diabetes mellitus recruiting and selection consultant insulin use: with recruiting and selection consultant use Diabetes mellitus complication status: with hypoglycemia Diabetes mellitus complication detail: without coma Qualified Code(s): E11.649 - Type 2 diabetes mellitus with hypoglycemia without coma; 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 L Subjective Date/time seen: 11/17/24 18:20 Interval history: Follow-up for acute kidney injury/acute renal failure. Seem earlier today and currently -- tolerating dialysis treatment at the time of my visit (seen on HD at 6:10pm); remains obtunded when seen; s/p temporary HD catheter placement earlier today and tolerated this procedure; renal function continues to deteriorate despite all interventions to date. Exam 2 Narrative: General: large but ill-appearing male in NAD; obtunded Heart: normal S1 and S2; no rub Lungs: clear anteriorly Abdomen: obese with diminished bowel sounds Extremities: no cyanosis or clubbing; trace edema Skin: no rash Objective Data Vital Signs Vital Signs: Vital Signs Temp Pulse Resp BP Pulse Ox O2 Del Method O2 Flow Rate 11/17/24 18:15 55 L 141/54 H 11/17/24 18:00 56 L 167/76 H 11/17/24 17:37 61 174/71 H 11/17/24 17:30 3 11/17/24 17:30 97.7 F 66 17 180/74 H 100 11/17/24 15:33 97.7 F 62 12 145/62 H 98 11/17/24 11:24 98.0 F 65 22 H 147/59 H 100 11/17/24 10:00 64 11/17/24 08:50 99 Nasal Cannula 2 11/17/24 08:00 61 11/17/24 07:53 96.8 F L 66 12 139/58 L 100 11/17/24 06:00 66 11/17/24 04:00 68 11/17/24 04:00 98 Nasal Cannula 2 11/17/24 03:44 99.0 F 60 22 H 134/44 L 98 11/17/24 02:00 62 11/17/24 00:16 98.8 F 63 22 H 146/46 H 97 11/17/24 00:00 62 11/17/24 00:00 98 Nasal Cannula 2 11/16/24 22:00 60 11/16/24 21:33 98 Nasal Cannula 2 11/16/24 21:02 98 Nasal Cannula 3 11/16/24 20:03 97.8 F 63 23 H 132/54 L 99 11/16/24 20:00 67 11/16/24 20:00 98 Nasal Cannula 2 Intake/Output Intake/Output: Intake & Output 11/14/24 11/15/24 11/16/24 11/17/24 23:59 23:59 23:59 23:59 Intake Total 3465.8 1504.2 1400.0 1000 Output Total 549 726 2246 600 Balance 2765.8 1104.2 385.0 400 Meds/Results Medications: Active Medications Generic Name Dose Route Start Last Admin Trade Name Freq PRN Reason Stop Dose Admin Acetaminophen 650 mg 11/13/24 21:38 Acetaminophen 325 Mg Tablet PO Q8H PRN Pain Rated 1-3 Albuterol 2 puff 11/13/24 21:38 Albuterol Sulfate (*Sp) Aerosol 1 Puff INHALATION Q4H PRN Wheezing Artificial Tears 1 drop 11/13/24 21:58 Artificial Tears Ophth Soln 15 Ml Bottle EACH EYE QID PRN Dry Eye(s) Aspirin 81 mg 11/14/24 09:00 11/17/24 09:22 Aspirin 81 Mg Enteric Tablet PO Not Given DAILY BERNARDO Benzonatate 100 mg 11/13/24 21:38 Benzonatate 100 Mg Capsule PO TID PRN cough Brimonidine Tartrate 1 drop 11/14/24 06:00 11/17/24 17:19 Brimonidine Tartrate 0.2% Op Soln 5 Ml Btl EACH EYE 1 drop Q8HR BERNARDO Administration Brinzolamide 1 drop 11/14/24 06:00 11/17/24 17:19 Brinzolamide 1% Ophth Susp 10 Ml EACH EYE 1 drop Q8HR BERNARDO Administration Cholestyramine Resin 4 gm 11/14/24 10:00 11/17/24 17:19 Cholestyramine (W/ Sugar) 4 Gm Powd.Pack PO Not Given 1000,1300,1800 BERNARDO Dextrose 12.5 gm 11/13/24 21:30 Dextrose 50% 25 Gm/50 Ml Syringe IV PUSH PRN PRN Hypoglycemia Protocol Escitalopram Oxalate 15 mg 11/14/24 09:00 11/17/24 09:23 Escitalopram Oxalate 5 Mg Tablet PO Not Given QAM BERNARDO Fluticasone/Umeclidinium/Vilanterol 1 puff 11/14/24 08:00 11/17/24 16:21 Fluticasone/Umeclidin/Vilanter 100-62.5-25 Mcg Ellipta INHALATION Not Given DAILYRT BERNARDO Gabapentin 100 mg 11/14/24 09:00 11/17/24 17:18 Gabapentin 100 Mg Capsule PO Not Given TID BERNARDO Glucagon 1 mg 11/13/24 21:30 Glucagon For Inj 1 Mg Vial IM PRN PRN Hypoglycemia Protocol Glucose 15 gm 11/13/24 21:30 Glucose Oral Gel 15 Gm Of Glucse In 37.5 Gm Tube PO PRN PRN Hypoglycemia Protocol Guaifenesin/Dextromethorphan 10 ml 11/13/24 21:38 Guaifenesin/Dextromethorphan 10 Ml Udc PO Q4-6H PRN Cough Heparin Sodium (Porcine) 5,000 units 11/14/24 22:00 11/17/24 17:31 Heparin Sodium 5,000 Units/Ml Vial SUB-Q 5,000 units Q8HR BERNARDO Administration Sodium Chloride 1,000 mls @ 75 mls/hr 11/13/24 17:55 11/17/24 09:24 Normal Saline Iv IV CONT 75 mls/hr .[id number] BERNARDO Administration Dextrose 1,000 mls @ 100 mls/hr 11/13/24 21:30 Dextrose 5% 1,000 Ml IVPB PRN PRN Hypoglycemia Protocol Dextrose 1,000 mls @ 50 mls/hr 11/17/24 12:24 Dextrose 10% IV CONT .Q20H PRN if PN is interrupted Amino Acids/Electrolytes/Dextrose 1,000 mls @ 80 mls/hr 11/17/24 13:00 11/17/24 17:30 Clinimix E 4.25%/5% Solution IV CONT 80 mls/hr .[id number] BERNARDO Administration Protocol Fat Emulsion Intravenous 250 mls @ 20.833 mls/hr 11/17/24 13:00 11/17/24 17:30 Lipids 20% IVPB 20.83 mls/hr Q24H BERNARDO Administration Insulin Aspart 3 - 6 units 11/14/24 08:00 11/17/24 17:18 Insulin Aspart (*Bkc) 100 Units/Ml SUB-Q Not Given TIDWM [facility] Protocol Lidocaine 1 patch 11/14/24 09:00 11/17/24 14:53 Lidocaine 5% Patch TOPICAL Not Given DAILY BERNARDO Loperamide HCl 2 mg 11/13/24 21:38 Loperamide Hcl 2 Mg Capsule PO Q6H PRN Diarrhea Melatonin 5 mg 11/13/24 22:00 11/16/24 21:20 Melatonin 5 Mg Tablet PO 5 mg HS [facility] Administration Morphine Sulfate 2 mg 11/17/24 10:55 11/17/24 12:27 Morphine Sulfate (*Crx) 2 Mg/Ml Inj IV PUSH 2 mg ONCE PRN Administration Pain Ondansetron HCl 4 mg 11/13/24 21:38 Ondansetron Hcl Odt 4 Mg Tablet PO Q4H PRN Nausea And Vomiting Oxycodone HCl 5 mg 11/13/24 21:38 Oxycodone Hcl (*Crx) 5 Mg Tab Ir PO QHS PRN Pain Rated 4-6 Pantoprazole Sodium 40 mg 11/17/24 09:00 11/17/24 12:00 Pantoprazole Sodium Iv 40 Mg Vial IV PUSH 40 mg QAM BERNARDO Administration Psyllium Hydrophilic Mucilloid 1 packet 11/13/24 22:00 Psyllium Sugar Free Powder Packet PO DAILY PRN constipation Rosuvastatin Calcium 40 mg 11/13/24 22:00 11/16/24 21:20 Rosuvastatin 20 Mg Tablet PO 40 mg QHS BERNARDO Administration Senna 8.6 mg 11/13/24 21:38 Sennosides 8.6 Mg Tablet PO DAILY PRN Constipation Tamsulosin HCl 0.4 mg 11/14/24 09:00 11/17/24 09:23 Tamsulosin Hcl 0.4 Mg Capsule PO Not Given QAM [facility] Radiology Results: ITS Impressions Chest/Abdomen/Pelvis CT 11/14/24 09:27 IMPRESSION: Bilateral renal calculi. Asymmetric mural thickening of the base of the bladder for which direct visualization is recommended. Findings which may represent partial distal bowel obstruction with significant air distention of the colon just before the anastomotic staple line and distal decompression. Significant gallbladder distention with trace surrounding inflammatory change. Bibasilar atelectasis. Renal Ultrasound 11/14/24 11:43 Impression: No definite abnormality seen. Visualization of the kidneys is somewhat suboptimal related to patient body habitus. Head CT 11/14/24 18:07 IMPRESSION: No acute intracranial findings. 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 Abdomen/Pelvis CT 11/15/24 09:13 IMPRESSION: 1. Bilateral nephrolithiasis with interval advancement of a 3-4 mm at least partially obstructing stone now at the left ureterovesicular junction with mild left hydroureteronephrosis. 2. Likely intermittent/partial small bowel obstruction secondary to a volvulus with at least 360 degrees twist of the distalmost small bowel immediately proximal to ileocolic anastomosis with no interval change in mild dilation of a few loops of more proximal small bowel. 3. Prominent dilation of the gallbladder to 6.5 cm but without evident wall thickening or pericholecystic infiltrate stranding to more specifically suggest acute cholecystitis. Correlate with the right upper quadrant ultrasound or HIDA scan. 4. Very small right and trace left pleural effusions and minimal perihepatic ascites. Abdomen Ultrasound 11/15/24 09:16 IMPRESSION: Fatty infiltration of the liver. Hydropic, fluid-filled gallbladder with dependent stones suspected. Hepatobiliary Scan [facility] 11/15/24 15:34 IMPRESSION: 1. Normal hepatobiliary scan. Brain MRI 11/16/24 14:12 IMPRESSION: 1. No significant change in chronic infarcts, the largest involving the plantar to the right middle cerebral and portions of the anterior cerebral artery vascular distribution. No acute intracranial process. Abdomen X-Ray 11/17/24 13:20 IMPRESSION: Likely partial, intermittent bowel obstruction, as detailed above. Chest X-Ray 11/17/24 15:19 IMPRESSION: Tip of the temporary dialysis catheter is at the cavoatrial junction. Lumbar Puncture Fluoroscopy 11/17/24 16:59 IMPRESSION: 1. Successful fluoro-guided lumbar puncture with normal opening pressure of 19 cm water. Labs Labs: Laboratory Tests 11/17/24 05:58 11/17/24 05:58 Calcium 9.1 Total Bilirubin 0.2 AST 29 ALT 17 Alkaline Phosphatase 125 Total Protein 6.0 L Albumin 2.9 L
--- NOTE | 2024-11-17 19:00 | PC.NURSE ---
Dialysis catheter placed at bedside by Dr. Renteria
[2024-11-18] VITALS (31 sets, daily range): BP systolic 120–183; BP diastolic 49–77; PULSE 50–71; RESP 16–22; TEMP 36.4–37; O2SAT 94–100
[2024-11-18 04:07] LABS: Anion Gap 10 mmol/L (4-12); Blood Urea Nitrogen 71 mg/dL (9-20); Calcium 8.4 mg/dL (8.4-10.2); Carbon Dioxide 21 mmol/L (22-30); Chloride 106 mmol/L (98-107); Estimated CRCL calculation 15 ml/min; Estimated Glomerular Filt Rate 11; Glucose 157 mg/dL (65-110); Potassium 3.8 mmol/L (3.4-5.0); Sodium 137 mmol/L (137-145); Triglycerides 277 mg/dL (<150)
[2024-11-18 05:08] LABS: Hep B Core Ab, Total Negative (Negative)
[2024-11-18] MEDS: AMINO ACIDS 4.25%/D5W/LYTES/CA 1,000 ML 80 ML IV CONT ×2 (05:22→17:20)
[2024-11-18] MEDS: BRINZOLAMIDE 1% OPHTH SUSP 10 ML 1 DROP EACH EYE ×3 (05:34→21:32)
[2024-11-18] MEDS: BRIMONIDINE TARTRATE 0.2% OP SOLN 5 ML BTL 1 DROP EACH EYE ×3 (05:34→21:32)
[2024-11-18] MEDS: FLUTICASONE/UMECLIDIN/VILANTER 100-62.5-25 MCG ELLIPTA 1 PUFF INHALATION (07:31)
--- NOTE | 2024-11-18 07:39 | P.PNGS_ITS ---
Progress Note: A&P Assessment and Plan (1) SBO (small bowel obstruction): Code(s): K56.609 - Unspecified intestinal obstruction, unspecified as to partial versus complete obstruction Status: Acute Assessment and Plan: exam benign, +bowel sounds, cont bowel regimen, await ROBF, cont PPN for now Subjective Subjective Date/Time Seen: 11/18/24 07:39 Interval history: no acute changes, still largely obtunded, denies abd pain Review of Systems Review of Systems: ROS unobtainable: Yes unobtainable due to medical condition and unobtainable due to mental status Exam Const: General: ill appearing and patient obtunded Resp: Auscultation: diminished lung sounds Cardio: Rate: regular rate Rhythm: regular rhythm GI: Inspection: normal to inspection and distended GI Palp: No abdominal tenderness and Yes Soft to palpation Objective Data Vital Signs Vital Signs: Vital Signs - 24 hr 11/17/24 07:53 11/17/24 08:00 11/17/24 08:50 Temperature 36.0 C L Pulse Rate 66 61 Respiratory Rate 12 Blood Pressure 139/58 L Pulse Oximetry 100 99 Oxygen Delivery Nasal Cannula Oxygen Flow Rate 2 11/17/24 10:00 11/17/24 11:24 11/17/24 12:00 Temperature 36.7 C Pulse Rate 64 65 Respiratory Rate 22 H Blood Pressure 147/59 H Pulse Oximetry 100 100 Oxygen Delivery Nasal Cannula Oxygen Flow Rate 2 11/17/24 12:00 11/17/24 14:00 11/17/24 15:33 Temperature 36.5 C Pulse Rate 63 66 62 Respiratory Rate 12 Blood Pressure 145/62 H Pulse Oximetry 98 Oxygen Delivery Oxygen Flow Rate 11/17/24 16:00 11/17/24 16:00 11/17/24 17:30 Temperature 36.5 C Pulse Rate 66 66 Respiratory Rate 17 Blood Pressure 180/74 H Pulse Oximetry 100 100 Oxygen Delivery Nasal Cannula Oxygen Flow Rate 2 11/17/24 17:30 11/17/24 17:37 11/17/24 18:00 Temperature Pulse Rate 61 56 L Respiratory Rate Blood Pressure 174/71 H 167/76 H Pulse Oximetry Oxygen Delivery Oxygen Flow Rate 3 11/17/24 18:00 11/17/24 18:15 11/17/24 18:30 Temperature Pulse Rate 62 55 L 63 Respiratory Rate Blood Pressure 141/54 H 152/69 H Pulse Oximetry Oxygen Delivery Oxygen Flow Rate 11/17/24 18:45 11/17/24 19:00 11/17/24 19:15 Temperature Pulse Rate 62 61 61 Respiratory Rate Blood Pressure 175/76 H 164/80 H 167/73 H Pulse Oximetry Oxygen Delivery Oxygen Flow Rate 11/17/24 19:30 11/17/24 19:50 11/17/24 20:00 Temperature Pulse Rate 60 63 Respiratory Rate Blood Pressure 170/78 H 181/71 H Pulse Oximetry 99 Oxygen Delivery Nasal Cannula Oxygen Flow Rate 3 11/17/24 20:00 11/17/24 20:07 11/17/24 20:14 Temperature 36.4 C L Pulse Rate 61 59 L 59 L Respiratory Rate 16 Blood Pressure 167/74 H 181/77 H Pulse Oximetry 99 Oxygen Delivery Oxygen Flow Rate 11/17/24 20:36 11/17/24 22:00 11/18/24 00:00 Temperature 36.8 C Pulse Rate 83 58 L Respiratory Rate 18 Blood Pressure 143/67 H Pulse Oximetry 99 96 Oxygen Delivery Nasal Cannula Oxygen Flow Rate 3 11/18/24 00:00 11/18/24 00:40 11/18/24 02:00 Temperature 36.6 C Pulse Rate 58 L 63 60 Respiratory Rate 16 Blood Pressure 146/57 H Pulse Oximetry 100 Oxygen Delivery Oxygen Flow Rate 11/18/24 03:45 11/18/24 04:00 11/18/24 04:00 Temperature 36.8 C Pulse Rate 66 59 L Respiratory Rate 20 Blood Pressure 172/74 H Pulse Oximetry 99 98 Oxygen Delivery Nasal Cannula Oxygen Flow Rate 3 11/18/24 06:00 11/18/24 07:33 11/18/24 07:33 Temperature Pulse Rate 60 62 Respiratory Rate 19 Blood Pressure Pulse Oximetry 94 Oxygen Delivery Nasal Cannula Oxygen Flow Rate 2 Intake/Output Intake/Output: Intake & Output 11/15/24 11/16/24 11/17/24 11/18/24 23:59 23:59 23:59 23:59 Intake Total 1504.2 1400.0 1000 949.3 Output Total 400 1015 600 900 Balance 1104.2 385.0 400 49.3 Meds/Results Medications: Active Medications Generic Name Dose Route Start Last Admin Trade Name Freq PRN Reason Stop Dose Admin Acetaminophen 650 mg 11/13/24 21:38 Acetaminophen 325 Mg Tablet PO Q8H PRN Pain Rated 1-3 Albuterol 2 puff 11/13/24 21:38 Albuterol Sulfate (*Sp) Aerosol 1 Puff INHALATION Q4H PRN Wheezing Artificial Tears 1 drop 11/13/24 21:58 Artificial Tears Ophth Soln 15 Ml Bottle EACH EYE QID PRN Dry Eye(s) Aspirin 81 mg 11/14/24 09:00 11/17/24 09:22 Aspirin 81 Mg Enteric Tablet PO Not Given DAILY BERNARDO Benzonatate 100 mg 11/13/24 21:38 Benzonatate 100 Mg Capsule PO TID PRN cough Brimonidine Tartrate 1 drop 11/14/24 06:00 11/18/24 05:34 Brimonidine Tartrate 0.2% Op Soln 5 Ml Btl EACH EYE 1 drop Q8HR BERNARDO Administration Brinzolamide 1 drop 11/14/24 06:00 11/18/24 05:34 Brinzolamide 1% Ophth Susp 10 Ml EACH EYE 1 drop Q8HR BERNARDO Administration Cholestyramine Resin 4 gm 11/14/24 10:00 11/17/24 17:19 Cholestyramine (W/ Sugar) 4 Gm Powd.Pack PO Not Given 1000,1300,1800 BERNARDO Dextrose 12.5 gm 11/13/24 21:30 Dextrose 50% 25 Gm/50 Ml Syringe IV PUSH PRN PRN Hypoglycemia Protocol Epoetin Julien-epbx 4,000 units 11/18/24 14:00 Epoetin Julien-Epbx 4,000 Units/Ml Vial IV PUSH 11/18/24 14:01 ONCE ONE Escitalopram Oxalate 15 mg 11/14/24 09:00 11/17/24 09:23 Escitalopram Oxalate 5 Mg Tablet PO Not Given QAM BERNARDO Fluticasone/Umeclidinium/Vilanterol 1 puff 11/14/24 08:00 11/18/24 07:31 Fluticasone/Umeclidin/Vilanter 100-62.5-25 Mcg Ellipta INHALATION 1 puff DAILYRT BERNARDO Administration Gabapentin 100 mg 11/14/24 09:00 11/17/24 17:18 Gabapentin 100 Mg Capsule PO Not Given TID BERNARDO Glucagon 1 mg 11/13/24 21:30 Glucagon For Inj 1 Mg Vial IM PRN PRN Hypoglycemia Protocol Glucose 15 gm 11/13/24 21:30 Glucose Oral Gel 15 Gm Of Glucse In 37.5 Gm Tube PO PRN PRN Hypoglycemia Protocol Guaifenesin/Dextromethorphan 10 ml 11/13/24 21:38 Guaifenesin/Dextromethorphan 10 Ml Udc PO Q4-6H PRN Cough Heparin Sodium (Porcine) 5,000 units 11/14/24 22:00 11/18/24 05:33 Heparin Sodium 5,000 Units/Ml Vial SUB-Q 5,000 units Q8HR BERNARDO Administration Dextrose 1,000 mls @ 100 mls/hr 11/13/24 21:30 Dextrose 5% 1,000 Ml IVPB PRN PRN Hypoglycemia Protocol Dextrose 1,000 mls @ 50 mls/hr 11/17/24 12:24 Dextrose 10% IV CONT .Q20H PRN if PN is interrupted Amino Acids/Electrolytes/Dextrose 1,000 mls @ 80 mls/hr 11/17/24 13:00 11/18/24 05:22 Clinimix E 4.25%/5% Solution IV CONT 80 mls/hr .[id number] BERNARDO Administration Protocol Fat Emulsion Intravenous 250 mls @ 20.833 mls/hr 11/17/24 13:00 11/17/24 17:30 Lipids 20% IVPB 20.83 mls/hr Q24H BERNARDO Administration Albumin Human 50 mls @ 999 mls/hr 11/18/24 07:10 Albutein IVPB 12/18/24 07:09 Q10M PRN HYPOTENSION Sodium Chloride 1,000 mls @ 999 mls/hr 11/18/24 07:10 Normal Saline Iv IV CONT 11/18/24 08:10 .Q1H1M ONE Insulin Aspart 3 - 6 units 11/14/24 08:00 11/17/24 17:18 Insulin Aspart (*Bkc) 100 Units/Ml SUB-Q Not Given TIDWM BERNARDO Protocol Lidocaine 1 patch 11/14/24 09:00 11/17/24 14:53 Lidocaine 5% Patch TOPICAL Not Given DAILY BERNARDO Loperamide HCl 2 mg 11/13/24 21:38 Loperamide Hcl 2 Mg Capsule PO Q6H PRN Diarrhea Melatonin 5 mg 11/13/24 22:00 11/17/24 20:53 Melatonin 5 Mg Tablet PO Not Given HS [facility] Morphine Sulfate 2 mg 11/17/24 10:55 11/17/24 12:27 Morphine Sulfate (*Crx) 2 Mg/Ml Inj IV PUSH 2 mg ONCE PRN Administration Pain Ondansetron HCl 4 mg 11/13/24 21:38 Ondansetron Hcl Odt 4 Mg Tablet PO Q4H PRN Nausea And Vomiting Oxycodone HCl 5 mg 11/13/24 21:38 Oxycodone Hcl (*Crx) 5 Mg Tab Ir PO QHS PRN Pain Rated 4-6 Pantoprazole Sodium 40 mg 11/17/24 09:00 11/17/24 12:00 Pantoprazole Sodium Iv 40 Mg Vial IV PUSH 40 mg QAM [facility] Administration Psyllium Hydrophilic Mucilloid 1 packet 11/13/24 22:00 Psyllium Sugar Free Powder Packet PO DAILY PRN constipation Rosuvastatin Calcium 40 mg 11/13/24 22:00 11/17/24 20:53 Rosuvastatin 20 Mg Tablet PO Not Given QHS [facility] Senna 8.6 mg 11/13/24 21:38 Sennosides 8.6 Mg Tablet PO DAILY PRN Constipation Tamsulosin HCl 0.4 mg 11/14/24 09:00 11/17/24 09:23 Tamsulosin Hcl 0.4 Mg Capsule PO [facility] [place] [facility] Results: ITS Impressions Chest/Abdomen/Pelvis CT 11/14/24 09:27 IMPRESSION: Bilateral renal calculi. Asymmetric mural thickening of the base of the bladder for which direct visualization is recommended. Findings which may represent partial distal bowel obstruction with significant air distention of the colon just before the anastomotic staple line and distal decompression. Significant gallbladder distention with trace surrounding inflammatory change. Bibasilar atelectasis. Renal Ultrasound 11/14/24 11:43 Impression: No definite abnormality seen. Visualization of the kidneys is somewhat suboptimal related to patient body habitus. Head CT 11/14/24 18:07 IMPRESSION: No acute intracranial findings. 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 Abdomen/Pelvis CT 11/15/24 09:13 IMPRESSION: 1. Bilateral nephrolithiasis with interval advancement of a 3-4 mm at least partially obstructing stone now at the left ureterovesicular junction with mild left hydroureteronephrosis. 2. Likely intermittent/partial small bowel obstruction secondary to a volvulus with at least 360 degrees twist of the distalmost small bowel immediately proximal to ileocolic anastomosis with no interval change in mild dilation of a few loops of more proximal small bowel. 3. Prominent dilation of the gallbladder to 6.5 cm but without evident wall thickening or pericholecystic infiltrate stranding to more specifically suggest acute cholecystitis. Correlate with the right upper quadrant ultrasound or HIDA scan. 4. Very small right and trace left pleural effusions and minimal perihepatic ascites. Abdomen Ultrasound 11/15/24 09:16 IMPRESSION: Fatty infiltration of the liver. Hydropic, fluid-filled gallbladder with dependent stones suspected. Hepatobiliary Scan [facility] 11/15/24 15:34 IMPRESSION: 1. Normal hepatobiliary scan. Brain MRI 11/16/24 14:12 IMPRESSION: 1. No significant change in chronic infarcts, the largest involving the plantar to the right middle cerebral and portions of the anterior cerebral artery vascular distribution. No acute intracranial process. Abdomen X-Ray 11/17/24 13:20 IMPRESSION: Likely partial, intermittent bowel obstruction, as detailed above. Chest X-Ray 11/17/24 15:19 IMPRESSION: Tip of the temporary dialysis catheter is at the cavoatrial junction. Lumbar Puncture Fluoroscopy 11/17/24 16:59 IMPRESSION: 1. Successful fluoro-guided lumbar puncture with normal opening pressure of 19 cm water. Labs Labs: Laboratory Results - last 24 hr 11/17/24 11/17/24 11/17/24 05:58 06:58 06:58 Sodium 141 Potassium 4.9 Chloride 114 H Carbon Dioxide 11 L Anion Gap 16 H BUN 87 H D Creatinine 7.73 H Estim Creat Clear Calc 11 Estimated GFR 7 L Glucose 139 H POC Capillary Glucose Calcium 9.1 Phosphorus Total Bilirubin 0.2 AST 29 ALT 17 Alkaline Phosphatase 125 Total Protein 6.0 L Albumin 2.9 L Triglycerides CSF Source CSF Appearance CSF Color CSF RBC CSF Tot Nucleated Cells CSF Glucose CSF Total Protein Hep Bs Antigen Negative Hep Bs Antibody Negative Hep B Core Total Ab Cancelled Negative 11/17/24 11/17/24 11/17/24 07:38 11:17 13:13 Sodium Potassium Chloride Carbon Dioxide Anion Gap BUN Creatinine Estim Creat Clear Calc Estimated GFR Glucose POC Capillary Glucose 130 H 116 H Calcium Phosphorus Total Bilirubin AST ALT Alkaline Phosphatase Total Protein Albumin Triglycerides CSF Source Csf CSF Appearance Clear CSF Color Colorless CSF RBC 0 CSF Tot Nucleated Cells 0 CSF Glucose 105 H CSF Total Protein 81 H Hep Bs Antigen Hep Bs Antibody Hep B Core Total Ab 11/17/24 11/17/24 11/18/24 16:05 20:52 00:47 Sodium Potassium Chloride Carbon Dioxide Anion Gap BUN Creatinine Estim Creat Clear Calc Estimated GFR Glucose POC Capillary Glucose 138 H 136 H 151 H Calcium Phosphorus Total Bilirubin AST ALT Alkaline Phosphatase Total Protein Albumin Triglycerides CSF Source CSF Appearance CSF Color CSF RBC CSF Tot Nucleated Cells CSF Glucose CSF Total Protein Hep Bs Antigen Hep Bs Antibody Hep B Core Total Ab 11/18/24 03:41 Sodium 137 Potassium 3.8 Chloride 106 Carbon Dioxide 21 L Anion Gap 10 BUN 71 H D Creatinine 5.43 H Estim Creat Clear Calc 15 Estimated GFR 11 L Glucose 157 H POC Capillary Glucose Calcium 8.4 Phosphorus 5.5 H Total Bilirubin AST ALT Alkaline Phosphatase Total Protein Albumin Triglycerides 277 H CSF Source CSF Appearance CSF Color CSF RBC CSF Tot Nucleated Cells CSF Glucose CSF Total Protein Hep Bs Antigen Hep Bs Antibody Hep B Core Total Ab
[2024-11-18 07:47] LABS: Hematocrit 28.7 % (42.0-52.0); Hemoglobin 9.5 g/dL (14.0-18.0); Immature Granulocyte Percent A 3.5 % (0-0.5); Lymphocytes Absolute Auto 1.04 K/mm3 (0.9-3.2); Mean Corpuscular HGB Conc 33.1 g/dl (32-36); Mean Corpuscular Hemoglobin 28.2 pg (26-34); Mean Corpuscular Volume 85.2 fl (80-100); Nucleated Red Blood Cells Absolute Auto 0.000 K/mm3 (0.0-0.012); Nucleated Red Blood Cells Perc 0.0 % (0.0-0.2); Platelet Count Result 254 k/mm3 (150-375); Red Blood Count 3.37 M/mm3 (4.6-6.20); White Blood Count 13.2 K/mm3 (4.5-10.0)
[2024-11-18] MEDS: PANTOPRAZOLE SODIUM IV 40 MG VIAL IV PUSH (08:09)
[2024-11-18] MEDS: BUMETANIDE INJ 1 MG/4 ML VIAL 2 MG IV PUSH (08:09)
--- NOTE | 2024-11-18 08:25 | PC.NURSE ---
up to dialysis
--- NOTE | 2024-11-18 10:10 | P.PNNP_ITS ---
Progress Note: A&P Assessment and Plan (1) Acute kidney injury: Code(s): N17.9 - Acute kidney failure, unspecified Status: Acute Assessment and Plan: * continues to deteriorate * as noted by admission labs * baseline creatinine seems to run ~ 1.1 - 1.3mg/dl * creatinine 1.13mg/dl in July 2024 * suspect multifactorial etiology: * prerenal factors * hypotension/hemodynamic instability * urinary retention/obstruction * infection (gallbladder?) * other(?) * evaluation to date noted: * urine electrolytes prerenal * rare urine eosinophils -- possible AIN? (however, no rash or peripheral eosinophilia) * CPK mildly elevated (but not enough to affect kidney function) * mild proteinuria * UA without evidence of infection * renal ultrasound negative (but limited due to body habitus) * HD yesterday * HD today * follow trend of repeat labs and UOP for potential recovery (2) Altered mental status: Code(s): R41.82 - Altered mental status, unspecified Status: Acute Assessment and Plan: * as noted since 11/15 * etiology?? -- related to renal failure?? * Neurology recommendations noted * MRI of brain noted * s/p lumbar puncture - follow-up on pending tests * follow mentation (3) SBO (small bowel obstruction): Code(s): K56.609 - Unspecified intestinal obstruction, unspecified as to partial versus complete obstruction Status: Acute Assessment and Plan: * admission CT demonstrated findings which may represent partial distal bowel obstruction with significant air distention of the colon just before the and anastomotic staple line and distal decompression * repeat CT scan noted as well * NG tube in place * Surgery following with recommendations noted * PPN initiated for nutritional support * continue supportive therapy (4) Dilated gallbladder: Code(s): K82.8 - Other specified diseases of gallbladder Status: Acute Assessment and Plan: * admission CT demonstrated significant gallbladder distention with trace surrounding inflammatory change * repeat CT scan noted as well * normal LFTs * abdominal exam positive for diffuse tenderness to palpation (but unreliable given AMS) * no nausea or vomiting * Surgery following - poor surgical candidate if intervention needed... (5) Bilateral nephrolithiasis: Code(s): N20.0 - Calculus of kidney Status: Acute Assessment and Plan: * admission and repeat CT scan noted/reviewed * Urology recommendations noted * s/p cystoscopy, stone extraction, bilateral ureteral stent placement (on 11/16) * continue supportive therapy (6) Anemia: Code(s): D64.9 - Anemia, unspecified Status: Acute Assessment and Plan: * related to BYRCE and acute illness * Epogen with HD if needed * follow trend of H/H (7) Hypertension: Qualifiers: Hypertension type: primary hypertension Qualified Code(s): I10 - Essential (primary) hypertension Code(s): I10 - Essential (primary) hypertension Status: Chronic Assessment and Plan: * slowly resume home BP medications * initially hypotensive on admission * follow trend of hemodynamics (8) Type 2 diabetes mellitus: Qualifiers: Diabetes mellitus half-way insulin use: with terminologist use Diabetes mellitus complication status: with hypoglycemia Diabetes mellitus complication detail: without coma Qualified Code(s): E11.649 - Type 2 diabetes mellitus with hypoglycemia without coma; Z79.4 - senior living (current) use of insulin Code(s): E11.9 - Type 2 diabetes mellitus without complications Status: Chronic Assessment and Plan: * issues with hypoglyemia prior to admission noted * follow accu-cheks * glycemic control per hospitalist Will continue to follow. L Subjective Date/time seen: 11/18/24 10:10 Interval history: Follow-up for acute kidney injury/acute renal failure. Tolerated dialysis treatment yesterday and tolerating dialysis treatment at the time of my visit (seen on HD at 10:00am); no real significant change in mental status since last seen (remains obtunded/unresponsive); still making some urine at this time; started on PPN for nutritional support; no other issues/events overnight or earlier this morning. Exam 2 Narrative: General: large but ill-appearing male in NAD; obtunded Heart: normal S1 and S2; no rub Lungs: clear anteriorly Abdomen: obese with diminished bowel sounds Extremities: no cyanosis or clubbing; trace edema Skin: no nodules Objective Data Vital Signs Vital Signs: Vital Signs Temp Pulse Resp BP Pulse Ox O2 Del Method O2 Flow Rate 11/18/24 10:00 60 160/68 H 11/18/24 09:45 65 160/67 H 11/18/24 09:30 65 160/71 H 11/18/24 09:15 65 155/68 H 11/18/24 09:00 56 L 149/64 H 11/18/24 08:45 60 183/71 H 11/18/24 08:33 71 168/71 H 11/18/24 08:25 1 11/18/24 08:25 97.7 F 62 20 167/70 H 100 11/18/24 08:00 53 L 11/18/24 08:00 99 Nasal Cannula 2 11/18/24 08:00 98.1 F 60 22 H 148/62 H 100 11/18/24 07:33 62 19 11/18/24 07:33 94 Nasal Cannula 2 11/18/24 06:00 60 11/18/24 04:00 59 L 11/18/24 04:00 98 Nasal Cannula 3 11/18/24 03:45 98.3 F 66 20 172/74 H 99 11/18/24 02:00 60 11/18/24 00:40 98 F 63 16 146/57 H 100 11/18/24 00:00 58 L 11/18/24 00:00 96 Nasal Cannula 3 11/17/24 22:00 58 L 11/17/24 20:36 98.2 F 83 18 143/67 H 99 11/17/24 20:14 97.5 F L 59 L 16 181/77 H 99 11/17/24 20:07 59 L 167/74 H 11/17/24 20:00 61 11/17/24 20:00 99 Nasal Cannula 3 11/17/24 19:50 63 181/71 H 11/17/24 19:30 60 170/78 H 11/17/24 19:15 61 167/73 H 11/17/24 19:00 61 164/80 H 11/17/24 18:45 62 175/76 H 11/17/24 18:30 63 152/69 H 11/17/24 18:15 55 L 141/54 H 11/17/24 18:00 62 11/17/24 18:00 56 L 167/76 H 11/17/24 17:37 61 174/71 H 11/17/24 17:30 3 11/17/24 17:30 97.7 F 66 17 180/74 H 100 11/17/24 16:00 66 11/17/24 16:00 100 Nasal Cannula 2 11/17/24 15:33 97.7 F 62 12 145/62 H 98 Intake/Output Intake/Output: Intake & Output 11/15/24 11/16/24 11/17/24 11/18/24 23:59 23:59 23:59 23:59 Intake Total 1504.2 1400.0 1000 1049.3 Output Total 400 7204 016 4295 Balance 1104.2 385.0 400 -850.7 Meds/Results Medications: Active Medications Generic Name Dose Route Start Last Admin Trade Name Freq PRN Reason Stop Dose Admin Acetaminophen 650 mg 11/13/24 21:38 Acetaminophen 325 Mg Tablet PO Q8H PRN Pain Rated 1-3 Albuterol 2 puff 11/13/24 21:38 Albuterol Sulfate (*Sp) Aerosol 1 Puff INHALATION Q4H PRN Wheezing Artificial Tears 1 drop 11/13/24 21:58 Artificial Tears Ophth Soln 15 Ml Bottle EACH EYE QID PRN Dry Eye(s) Aspirin 81 mg 11/14/24 09:00 11/18/24 12:26 Aspirin 81 Mg Enteric Tablet PO 81 mg DAILY [facility] Administration Benzonatate 100 mg 11/13/24 21:38 Benzonatate 100 Mg Capsule PO TID PRN cough Brimonidine Tartrate 1 drop 11/14/24 06:00 11/18/24 05:34 Brimonidine Tartrate 0.2% Op Soln 5 Ml Btl EACH EYE 1 drop Q8HR [facility] Administration Brinzolamide 1 drop 11/14/24 06:00 11/18/24 05:34 Brinzolamide 1% Ophth Susp 10 Ml EACH EYE 1 drop Q8HR [facility] Administration Cholestyramine Resin 4 gm 11/14/24 10:00 11/18/24 12:44 Cholestyramine (W/ Sugar) 4 Gm Powd.Pack PO Not Given 1000,1300,1800 [facility] Dextrose 12.5 gm 11/13/24 21:30 Dextrose 50% 25 Gm/50 Ml Syringe IV PUSH PRN PRN Hypoglycemia Protocol Epoetin Julien-epbx 4,000 units 11/18/24 14:00 11/18/24 10:21 Epoetin Julien-Epbx 4,000 Units/Ml Vial IV PUSH 11/18/24 14:01 4,000 units ONCE ONE Administration Escitalopram Oxalate 15 mg 11/14/24 09:00 11/18/24 12:26 Escitalopram Oxalate 5 Mg Tablet PO 15 mg QAM [facility] Administration Fluticasone/Umeclidinium/Vilanterol 1 puff 11/14/24 08:00 11/18/24 07:31 Fluticasone/Umeclidin/Vilanter 100-62.5-25 Mcg Ellipta INHALATION 1 puff DAILYRT [facility] Administration Gabapentin 100 mg 11/14/24 09:00 11/18/24 12:25 Gabapentin 100 Mg Capsule PO 100 mg TID [facility] Administration Glucagon 1 mg 11/13/24 21:30 Glucagon For Inj 1 Mg Vial IM PRN PRN Hypoglycemia Protocol Glucose 15 gm 11/13/24 21:30 Glucose Oral Gel 15 Gm Of Glucse In 37.5 Gm Tube PO PRN PRN Hypoglycemia Protocol Guaifenesin/Dextromethorphan 10 ml 11/13/24 21:38 Guaifenesin/Dextromethorphan 10 Ml Udc PO Q4-6H PRN Cough Heparin Sodium (Porcine) 5,000 units 11/14/24 22:00 11/18/24 12:44 Heparin Sodium 5,000 Units/Ml Vial SUB-Q 5,000 units Q8HR [facility] Administration Dextrose 1,000 mls @ 100 mls/hr 11/13/24 21:30 Dextrose 5% 1,000 Ml IVPB PRN PRN Hypoglycemia Protocol Dextrose 1,000 mls @ 50 mls/hr 11/17/24 12:24 Dextrose 10% IV CONT .Q20H PRN if PN is interrupted Amino Acids/Electrolytes/Dextrose 1,000 mls @ 80 mls/hr 11/17/24 13:00 11/18/24 05:22 Clinimix E 4.25%/5% Solution IV CONT 80 mls/hr .[id number] [facility] Administration Protocol Fat Emulsion Intravenous 250 mls @ 20.833 mls/hr 11/17/24 13:00 11/17/24 17:30 Lipids 20% IVPB 20.83 mls/hr Q24H [facility] Administration Albumin Human 50 mls @ 999 mls/hr 11/18/24 07:10 Albutein IVPB 12/18/24 07:09 Q10M PRN HYPOTENSION Insulin Aspart 3 - 6 units 11/14/24 08:00 11/18/24 12:45 Insulin Aspart (*Bkc) 100 Units/Ml SUB-Q Not Given TIDWM [facility] Protocol Lidocaine 1 patch 11/14/24 09:00 11/18/24 12:30 Lidocaine 5% Patch TOPICAL 1 patch DAILY [facility] Administration Loperamide HCl 2 mg 11/13/24 21:38 Loperamide Hcl 2 Mg Capsule PO Q6H PRN Diarrhea Melatonin 5 mg 11/13/24 22:00 11/17/24 20:53 Melatonin 5 Mg Tablet PO Not Given HS [facility] Morphine Sulfate 2 mg 11/17/24 10:55 11/17/24 12:27 Morphine Sulfate (*Crx) 2 Mg/Ml Inj IV PUSH 2 mg ONCE PRN Administration Pain Ondansetron HCl 4 mg 11/13/24 21:38 Ondansetron Hcl Odt 4 Mg Tablet PO Q4H PRN Nausea And Vomiting Oxycodone HCl 5 mg 11/13/24 21:38 Oxycodone Hcl (*Crx) 5 Mg Tab Ir PO QHS PRN Pain Rated 4-6 Pantoprazole Sodium 40 mg 11/17/24 09:00 11/18/24 08:09 Pantoprazole Sodium Iv 40 Mg Vial IV PUSH 40 mg QAM [facility] Administration Psyllium Hydrophilic Mucilloid 1 packet 11/13/24 22:00 Psyllium Sugar Free Powder Packet PO DAILY PRN constipation Rosuvastatin Calcium 40 mg 11/13/24 22:00 11/17/24 20:53 Rosuvastatin 20 Mg Tablet PO Not Given QHS [facility] Senna 8.6 mg 11/13/24 21:38 Sennosides 8.6 Mg Tablet PO DAILY PRN Constipation Tamsulosin HCl 0.4 mg 11/14/24 09:00 11/18/24 12:25 Tamsulosin Hcl 0.4 Mg Capsule PO 0.4 mg QAM [facility] Administration Radiology Results: ITS Impressions Chest/Abdomen/Pelvis CT 11/14/24 09:27 IMPRESSION: Bilateral renal calculi. Asymmetric mural thickening of the base of the bladder for which direct visualization is recommended. Findings which may represent partial distal bowel obstruction with significant air distention of the colon just before the anastomotic staple line and distal decompression. Significant gallbladder distention with trace surrounding inflammatory change. Bibasilar atelectasis. Renal Ultrasound 11/14/24 11:43 Impression: No definite abnormality seen. Visualization of the kidneys is somewhat suboptimal related to patient body habitus. Head CT 11/14/24 18:07 IMPRESSION: No acute intracranial findings. 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 Abdomen/Pelvis CT 11/15/24 09:13 IMPRESSION: 1. Bilateral nephrolithiasis with interval advancement of a 3-4 mm at least partially obstructing stone now at the left ureterovesicular junction with mild left hydroureteronephrosis. 2. Likely intermittent/partial small bowel obstruction secondary to a volvulus with at least 360 degrees twist of the distalmost small bowel immediately proximal to ileocolic anastomosis with no interval change in mild dilation of a few loops of more proximal small bowel. 3. Prominent dilation of the gallbladder to 6.5 cm but without evident wall thickening or pericholecystic infiltrate stranding to more specifically suggest acute cholecystitis. Correlate with the right upper quadrant ultrasound or HIDA scan. 4. Very small right and trace left pleural effusions and minimal perihepatic ascites. Abdomen Ultrasound 11/15/24 09:16 IMPRESSION: Fatty infiltration of the liver. Hydropic, fluid-filled gallbladder with dependent stones suspected. Hepatobiliary Scan [facility] 11/15/24 15:34 IMPRESSION: 1. Normal hepatobiliary scan. Brain MRI 11/16/24 14:12 IMPRESSION: 1. No significant change in chronic infarcts, the largest involving the plantar to the right middle cerebral and portions of the anterior cerebral artery vascular distribution. No acute intracranial process. Abdomen X-Ray 11/17/24 13:20 IMPRESSION: Likely partial, intermittent bowel obstruction, as detailed above. Chest X-Ray 11/17/24 15:19 IMPRESSION: Tip of the temporary dialysis catheter is at the cavoatrial junction. Lumbar Puncture Fluoroscopy 11/17/24 16:59 IMPRESSION: 1. Successful fluoro-guided lumbar puncture with normal opening pressure of 19 cm water. Labs Labs: Laboratory Tests 11/18/24 03:41 11/18/24 03:41 Calcium 8.4 Phosphorus 5.5 H Triglycerides 277 H
[2024-11-18] MEDS: EPOETIN ALFA-EPBX 4,000 UNITS/ML VIAL 4000 UNITS IV PUSH (10:21)
[2024-11-18] MEDS: SODIUM CHLORIDE 0.9% IV 1,000 ML 999 ML IV CONT (10:22)
--- NOTE | 2024-11-18 10:28 | WPDGIPROGNO ---
Progress Note: A&P Assessment and Plan (1) SBO (small bowel obstruction): Code(s): K56.609 - Unspecified intestinal obstruction, unspecified as to partial versus complete obstruction Status: Acute Assessment and Plan: on PPN NGT in place but noted + BS management per surgery (2) Metabolic encephalopathy: Code(s): G93.41 - Metabolic encephalopathy Status: Acute Assessment and Plan: on major changes (3) Acute renal insufficiency: Code(s): N28.9 - Disorder of kidney and ureter, unspecified Status: Acute Assessment and Plan: requiring dialysis (4) Hydroureteronephrosis: Code(s): N13.30 - Unspecified hydronephrosis Status: Acute (5) Chronic obstructive pulmonary disease: Code(s): J44.9 - Chronic obstructive pulmonary disease, unspecified Status: Acute Subjective Date/time seen: 11/18/24 10:28 Interval history: no changes, on dialysis now still obtunded Review of Systems Review of Systems: All systems reviewed & are unremarkable except as noted in HPI and below Exam Const: Other: obtunded HENMT: Other: NGT in place Eyes: Sclera: sclerae normal Neck: Neck: supple Resp: Effort & Inspection: normal respiratory effort Cardio: Rate: regular rate GI: Inspection: non-distended and obesity GI Palp: Yes Soft to palpation, No Tenderness to palpation present (GI), No Guarding due to palpation present (GI) and No Rebound tenderness present Auscultation: normal bowel sounds Skin: General skin exam: normal color Neuro: Other: awake but drowsy, lethargic Extrem: General: normal to inspection Objective Data Vital Signs Vital Signs: Vital Signs - 24 hr 11/17/24 11:24 11/17/24 12:00 11/17/24 12:00 Temperature 98.0 F Pulse Rate 65 63 Respiratory Rate 22 H Blood Pressure 147/59 H Pulse Oximetry 100 100 Oxygen Delivery Nasal Cannula Oxygen Flow Rate 2 11/17/24 14:00 11/17/24 15:33 11/17/24 16:00 Temperature 97.7 F Pulse Rate 66 62 Respiratory Rate 12 Blood Pressure 145/62 H Pulse Oximetry 98 100 Oxygen Delivery Nasal Cannula Oxygen Flow Rate 2 11/17/24 16:00 11/17/24 17:30 11/17/24 17:30 Temperature 97.7 F Pulse Rate 66 66 Respiratory Rate 17 Blood Pressure 180/74 H Pulse Oximetry 100 Oxygen Delivery Oxygen Flow Rate 3 11/17/24 17:37 11/17/24 18:00 11/17/24 18:00 Temperature Pulse Rate 61 56 L 62 Respiratory Rate Blood Pressure 174/71 H 167/76 H Pulse Oximetry Oxygen Delivery Oxygen Flow Rate 11/17/24 18:15 11/17/24 18:30 11/17/24 18:45 Temperature Pulse Rate 55 L 63 62 Respiratory Rate Blood Pressure 141/54 H 152/69 H 175/76 H Pulse Oximetry Oxygen Delivery Oxygen Flow Rate 11/17/24 19:00 11/17/24 19:15 11/17/24 19:30 Temperature Pulse Rate 61 61 60 Respiratory Rate Blood Pressure 164/80 H 167/73 H 170/78 H Pulse Oximetry Oxygen Delivery Oxygen Flow Rate 11/17/24 19:50 11/17/24 20:00 11/17/24 20:00 Temperature Pulse Rate 63 61 Respiratory Rate Blood Pressure 181/71 H Pulse Oximetry 99 Oxygen Delivery Nasal Cannula Oxygen Flow Rate 3 11/17/24 20:07 11/17/24 20:14 11/17/24 20:36 Temperature 97.5 F L 98.2 F Pulse Rate 59 L 59 L 83 Respiratory Rate 16 18 Blood Pressure 167/74 H 181/77 H 143/67 H Pulse Oximetry 99 99 Oxygen Delivery Oxygen Flow Rate 11/17/24 22:00 11/18/24 00:00 11/18/24 00:00 Temperature Pulse Rate 58 L 58 L Respiratory Rate Blood Pressure Pulse Oximetry 96 Oxygen Delivery Nasal Cannula Oxygen Flow Rate 3 11/18/24 00:40 11/18/24 02:00 11/18/24 03:45 Temperature 98 F 98.3 F Pulse Rate 63 60 66 Respiratory Rate 16 20 Blood Pressure 146/57 H 172/74 H Pulse Oximetry 100 99 Oxygen Delivery Oxygen Flow Rate 11/18/24 04:00 11/18/24 04:00 11/18/24 06:00 Temperature Pulse Rate 59 L 60 Respiratory Rate Blood Pressure Pulse Oximetry 98 Oxygen Delivery Nasal Cannula Oxygen Flow Rate 3 11/18/24 07:33 11/18/24 07:33 11/18/24 08:00 Temperature 98.1 F Pulse Rate 62 60 Respiratory Rate 19 22 H Blood Pressure 148/62 H Pulse Oximetry 94 100 Oxygen Delivery Nasal Cannula Oxygen Flow Rate 2 11/18/24 08:25 11/18/24 08:25 11/18/24 08:33 Temperature 97.7 F Pulse Rate 62 71 Respiratory Rate 20 Blood Pressure 167/70 H 168/71 H Pulse Oximetry 100 Oxygen Delivery Oxygen Flow Rate 1 11/18/24 08:45 11/18/24 09:00 11/18/24 09:15 Temperature Pulse Rate 60 56 L 65 Respiratory Rate Blood Pressure 183/71 H 149/64 H 155/68 H Pulse Oximetry Oxygen Delivery Oxygen Flow Rate 11/18/24 09:30 11/18/24 09:45 11/18/24 10:00 Temperature Pulse Rate 65 65 60 Respiratory Rate Blood Pressure 160/71 H 160/67 H 160/68 H Pulse Oximetry Oxygen Delivery Oxygen Flow Rate 11/18/24 10:15 Temperature Pulse Rate 63 Respiratory Rate Blood Pressure 153/77 H Pulse Oximetry Oxygen Delivery Oxygen Flow Rate Intake/Output Intake/Output: Intake & Output 11/15/24 11/16/24 11/17/24 11/18/24 23:59 23:59 23:59 23:59 Intake Total 1504.2 1400.0 1000 949.3 Output Total 400 1015 600 900 Balance 1104.2 385.0 400 49.3 Meds/Results Medications: Active Medications Generic Name Dose Route Start Last Admin Trade Name Freq PRN Reason Stop Dose Admin Acetaminophen 650 mg 11/13/24 21:38 Acetaminophen 325 Mg Tablet PO Q8H PRN Pain Rated 1-3 Albuterol 2 puff 11/13/24 21:38 Albuterol Sulfate (*Sp) Aerosol 1 Puff INHALATION Q4H PRN Wheezing Artificial Tears 1 drop 11/13/24 21:58 Artificial Tears Ophth Soln 15 Ml Bottle EACH EYE QID PRN Dry Eye(s) Aspirin 81 mg 11/14/24 09:00 11/17/24 09:22 Aspirin 81 Mg Enteric Tablet PO Not Given DAILY [facility] Benzonatate 100 mg 11/13/24 21:38 Benzonatate 100 Mg Capsule PO TID PRN cough Brimonidine Tartrate 1 drop 11/14/24 06:00 11/18/24 05:34 Brimonidine Tartrate 0.2% Op Soln 5 Ml Btl EACH EYE 1 drop Q8HR B[facility]ARDO Administration Brinzolamide 1 drop 11/14/24 06:00 11/18/24 05:34 Brinzolamide 1% Ophth Susp 10 Ml EACH EYE 1 drop Q8HR [facility]O Administration Cholestyramine Resin 4 gm 11/14/24 10:00 11/17/24 17:19 Cholestyramine (W/ Sugar) 4 Gm Powd.Pack PO Not Given 1000,1300,1800 [facility]O Dextrose 12.5 gm 11/13/24 21:30 Dextrose 50% 25 Gm/50 Ml Syringe IV PUSH PRN PRN Hypoglycemia Protocol Epoetin Julien-epbx 4,000 units 11/18/24 14:00 11/18/24 10:21 Epoetin Julien-Epbx 4,000 Units/Ml Vial IV PUSH 11/18/24 14:01 4,000 units ONCE ONE Administration Escitalopram Oxalate 15 mg 11/14/24 09:00 11/17/24 09:23 Escitalopram Oxalate 5 Mg Tablet PO Not Given QAM B[facility]O Fluticasone/Umeclidinium/Vilanterol 1 puff 11/14/24 08:00 11/18/24 07:31 Fluticasone/Umeclidin/Vilanter 100-62.5-25 Mcg Ellipta INHALATION 1 puff DAILYRT B[facility]ARDO Administration Gabapentin 100 mg 11/14/24 09:00 11/17/24 17:18 Gabapentin 100 Mg Capsule PO Not Given TID [facility]O Glucagon 1 mg 11/13/24 21:30 Glucagon For Inj 1 Mg Vial IM PRN PRN Hypoglycemia Protocol Glucose 15 gm 11/13/24 21:30 Glucose Oral Gel 15 Gm Of Glucse In 37.5 Gm Tube PO PRN PRN Hypoglycemia Protocol Guaifenesin/Dextromethorphan 10 ml 11/13/24 21:38 Guaifenesin/Dextromethorphan 10 Ml Udc PO Q4-6H PRN Cough Heparin Sodium (Porcine) 5,000 units 11/14/24 22:00 11/18/24 05:33 Heparin Sodium 5,000 Units/Ml Vial SUB-Q 5,000 units Q8HR [facility]O Administration Dextrose 1,000 mls @ 100 mls/hr 11/13/24 21:30 Dextrose 5% 1,000 Ml IVPB PRN PRN Hypoglycemia Protocol Dextrose 1,000 mls @ 50 mls/hr 11/17/24 12:24 Dextrose 10% IV CONT .Q20H PRN if PN is interrupted Amino Acids/Electrolytes/Dextrose 1,000 mls @ 80 mls/hr 11/17/24 13:00 11/18/24 05:22 Clinimix E 4.25%/5% Solution IV CONT 80 mls/hr .[id number] B[facility]O Administration Protocol Fat Emulsion Intravenous 250 mls @ 20.833 mls/hr 11/17/24 13:00 11/17/24 17:30 Lipids 20% IVPB 20.83 mls/hr Q24H [facility] Administration Albumin Human 50 mls @ 999 mls/hr 11/18/24 07:10 Albutein IVPB 12/18/24 07:09 Q10M PRN HYPOTENSION Insulin Aspart 3 - 6 units 11/14/24 08:00 11/17/24 17:18 Insulin Aspart (*Bkc) 100 Units/Ml SUB-Q Not Given TIDWM [facility] Protocol Lidocaine 1 patch 11/14/24 09:00 11/17/24 14:53 Lidocaine 5% Patch TOPICAL Not Given DAILY [facility] Loperamide HCl 2 mg 11/13/24 21:38 Loperamide Hcl 2 Mg Capsule PO Q6H PRN Diarrhea Melatonin 5 mg 11/13/24 22:00 11/17/24 20:53 Melatonin 5 Mg Tablet PO Not Given HS [facility] Morphine Sulfate 2 mg 11/17/24 10:55 11/17/24 12:27 Morphine Sulfate (*Crx) 2 Mg/Ml Inj IV PUSH 2 mg ONCE PRN Administration Pain Ondansetron HCl 4 mg 11/13/24 21:38 Ondansetron Hcl Odt 4 Mg Tablet PO Q4H PRN Nausea And Vomiting Oxycodone HCl 5 mg 11/13/24 21:38 Oxycodone Hcl (*Crx) 5 Mg Tab Ir PO QHS PRN Pain Rated 4-6 Pantoprazole Sodium 40 mg 11/17/24 09:00 11/18/24 08:09 Pantoprazole Sodium Iv 40 Mg Vial IV PUSH 40 mg QAM [facility] Administration Psyllium Hydrophilic Mucilloid 1 packet 11/13/24 22:00 Psyllium Sugar Free Powder Packet PO DAILY PRN constipation Rosuvastatin Calcium 40 mg 11/13/24 22:00 11/17/24 20:53 Rosuvastatin 20 Mg Tablet PO Not Given QHS [facility]O Senna 8.6 mg 11/13/24 21:38 Sennosides 8.6 Mg Tablet PO DAILY PRN Constipation Tamsulosin HCl 0.4 mg 11/14/24 09:00 11/17/24 09:23 Tamsulosin Hcl 0.4 Mg Capsule PO Not Given [facility] Radiology Results: ITS Impressions Chest/Abdomen/Pelvis CT 11/14/24 09:27 IMPRESSION: Bilateral renal calculi. Asymmetric mural thickening of the base of the bladder for which direct visualization is recommended. Findings which may represent partial distal bowel obstruction with significant air distention of the colon just before the anastomotic staple line and distal decompression. Significant gallbladder distention with trace surrounding inflammatory change. Bibasilar atelectasis. Renal Ultrasound 11/14/24 11:43 Impression: No definite abnormality seen. Visualization of the kidneys is somewhat suboptimal related to patient body habitus. Head CT 11/14/24 18:07 IMPRESSION: No acute intracranial findings. 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 Abdomen/Pelvis CT 11/15/24 09:13 IMPRESSION: 1. Bilateral nephrolithiasis with interval advancement of a 3-4 mm at least partially obstructing stone now at the left ureterovesicular junction with mild left hydroureteronephrosis. 2. Likely intermittent/partial small bowel obstruction secondary to a volvulus with at least 360 degrees twist of the distalmost small bowel immediately proximal to ileocolic anastomosis with no interval change in mild dilation of a few loops of more proximal small bowel. 3. Prominent dilation of the gallbladder to 6.5 cm but without evident wall thickening or pericholecystic infiltrate stranding to more specifically suggest acute cholecystitis. Correlate with the right upper quadrant ultrasound or HIDA scan. 4. Very small right and trace left pleural effusions and minimal perihepatic ascites. Abdomen Ultrasound 11/15/24 09:16 IMPRESSION: Fatty infiltration of the liver. Hydropic, fluid-filled gallbladder with dependent stones suspected. Hepatobiliary Scan [facility] 11/15/24 15:34 IMPRESSION: 1. Normal hepatobiliary scan. Brain MRI 11/16/24 14:12 IMPRESSION: 1. No significant change in chronic infarcts, the largest involving the plantar to the right middle cerebral and portions of the anterior cerebral artery vascular distribution. No acute intracranial process. Abdomen X-Ray 11/17/24 13:20 IMPRESSION: Likely partial, intermittent bowel obstruction, as detailed above. Chest X-Ray 11/17/24 15:19 IMPRESSION: Tip of the temporary dialysis catheter is at the cavoatrial junction. Lumbar Puncture Fluoroscopy 11/17/24 16:59 IMPRESSION: 1. Successful fluoro-guided lumbar puncture with normal opening pressure of 19 cm water. Labs Labs: Laboratory Results - last 24 hr 11/17/24 11/17/24 11/17/24 06:58 06:58 11:17 WBC RBC Hgb Hct MCV MCH MCHC RDW Plt Count MPV Immature Gran % (Auto) Neut % (Auto) Lymph % (Auto) [place] % (Auto) Eos % (Auto) Baso % (Auto) Lymph # (Auto) [place] # (Auto) Eos # (Auto) Baso # (Auto) Abs Immat Gran (auto) Absolute Neuts (auto) Absolute Nucleated RBC Nucleated RBC % Sodium Potassium Chloride Carbon Dioxide Anion Gap BUN Creatinine Estim Creat Clear Calc Estimated GFR Glucose POC Capillary Glucose 116 H Calcium Phosphorus Triglycerides CSF Source CSF Appearance CSF Color CSF RBC CSF Tot Nucleated Cells CSF Glucose CSF Total Protein Hep Bs Antigen Negative Hep Bs Antibody Negative Hep B Core Total Ab Cancelled Negative 11/17/24 11/17/24 11/17/24 13:13 16:05 20:52 WBC RBC Hgb Hct MCV MCH MCHC RDW Plt Count MPV Immature Gran % (Auto) Neut % (Auto) Lymph % (Auto) [place] % (Auto) Eos % (Auto) Baso % (Auto) Lymph # (Auto) [place] # (Auto) Eos # (Auto) Baso # (Auto) Abs Immat Gran (auto) Absolute Neuts (auto) Absolute Nucleated RBC Nucleated RBC % Sodium Potassium Chloride Carbon Dioxide Anion Gap BUN Creatinine Estim Creat Clear Calc Estimated GFR Glucose POC Capillary Glucose 138 H 136 H Calcium Phosphorus Triglycerides CSF Source Csf CSF Appearance Clear CSF Color Colorless CSF RBC 0 CSF Tot Nucleated Cells 0 CSF Glucose 105 H CSF Total Protein 81 H Hep Bs Antigen Hep Bs Antibody Hep B Core Total Ab 11/18/24 11/18/24 00:47 03:41 WBC 13.2 H RBC 3.37 L Hgb 9.5 L Hct 28.7 L MCV 85.2 MCH 28.2 MCHC 33.1 RDW 15.8 H Plt Count 254 MPV 8.7 Immature Gran % (Auto) 3.5 H Neut % (Auto) 82.3 H Lymph % (Auto) 7.9 L [place] % (Auto) 5.5 Eos % (Auto) 0.5 Baso % (Auto) 0.3 Lymph # (Auto) 1.04 [place] # (Auto) 0.7 H Eos # (Auto) 0.1 Baso # (Auto) 0.0 Abs Immat Gran (auto) 0.46 H Absolute Neuts (auto) 10.9 H Absolute Nucleated RBC 0.000 Nucleated RBC % 0.0 Sodium 137 Potassium 3.8 Chloride 106 Carbon Dioxide 21 L Anion Gap 10 BUN 71 H D Creatinine 5.43 H Estim Creat Clear Calc 15 Estimated GFR 11 L Glucose 157 H POC Capillary Glucose 151 H Calcium 8.4 Phosphorus 5.5 H Triglycerides 277 H CSF Source CSF Appearance CSF Color CSF RBC CSF Tot Nucleated Cells CSF Glucose CSF Total Protein Hep Bs Antigen Hep Bs Antibody Hep B Core Total Ab
[2024-11-18] MEDS: TAMSULOSIN HCL 0.4 MG CAPSULE PO (12:25)
[2024-11-18] MEDS: GABAPENTIN 100 MG CAPSULE PO ×3 (12:25→17:22)
[2024-11-18] MEDS: ESCITALOPRAM OXALATE 5 MG TABLET 15 MG PO (12:26)
[2024-11-18] MEDS: ASPIRIN 81 MG ENTERIC TABLET PO (12:26)
[2024-11-18] MEDS: LIDOCAINE 5% PATCH 1 PATCH TOPICAL (12:30)
--- NOTE | 2024-11-18 12:49 | P.PNIM_ITS ---
Progress Note: A&P Assessment and Plan (1) Acute renal failure: Qualifiers: Acute renal failure type: unspecified Qualified Code(s): N17.9 - Acute kidney failure, unspecified Code(s): N17.9 - Acute kidney failure, unspecified Status: Acute Assessment and Plan: - creatinine 5.43, BUN 61, GFR 11 - baseline: 1.1-1.3 - renal ultrasound unremarkable Cr 5.43, BUN 71 today continue IVF and [place] catheter s/p cystoscopy with left ureteroscopy and stone extraction with bilateral stent I discussed with Nephrology, Dr Mcgrath, he wants to proceed with dialysis, dialysis catheter today Nephrology and Urology following Continue dialysis per nephrology (2) Hypotension: Qualifiers: Hypotension type: hypotension due to hypovolemia Qualified Code(s): E86.1 - Hypovolemia Code(s): I95.9 - Hypotension, unspecified Status: Resolved Assessment and Plan: patient was hypotensive on presentation r/o infection HIDA negative Discontinued Rocephin and Flagyl monitor cultures (3) Type 2 diabetes mellitus: Qualifiers: Diabetes mellitus senior living insulin use: with senior living use Diabetes mellitus complication status: with hypoglycemia Diabetes mellitus complication detail: without coma Qualified Code(s): E11.649 - Type 2 diabetes mellitus with hypoglycemia without coma; 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 Code(s): E11.9 - Type 2 diabetes mellitus without complications Status: Chronic Assessment and Plan: NPO CCI with accucheks and adjust with clinical course (4) Hypertension: Qualifiers: Hypertension type: primary hypertension Qualified Code(s): I10 - Essential (primary) hypertension Code(s): I10 - Essential (primary) hypertension Status: Chronic Assessment and Plan: titrate home meds with clinical course Plan Partial SBO CT AP reviewed NPO, NG tube, on PPN Contrast enema per Gen surgery Gen surgery following monitor Gall bladder distension Rule out Acute cholecystitis CT AP reviewed HIDA scan normal discontinued Rocephin and Metronidazole Blood culture Hydrops Gallbladder US abd reviewed Gen surgery following AMS Seizure vs Stroke vs Metabolic CT head no acute changes MRI brain, EEG Ammonia <9 May be from Uremia, however BUN is 70 this morning LP done, and CSF studies WBC 0, RBC 0, and Protein 81 Neurology consulted Diet: heart healthy DVT Prophylaxis: Sq Heparin Code Status: DNR Subjective Date/time seen: 11/18/24 12:49 Interval history: Comfortable at bedside, no changes since dialysis for dialysis today Review of Systems Review of Systems: All systems reviewed & are unremarkable except as noted in HPI and below Exam Const: General: comfortable and no acute distress Other: , male, chronically ill-appearing HENMT: Face/Nose/Sinus: Normal nares present Mouth: Yes dry mucous membranes Eyes: General: appearance normal, both eyes and all related structures Sclera: sclerae normal Pupils: Equal, round and reactive pupils present EOM: EOMs intact bilaterally Resp: Effort & Inspection: normal respiratory effort Auscultation: clear to auscultation bilaterally Cardio: Rate: regular rate Rhythm: regular rhythm Other: S1-S2 present without murmur, rub, ectopy GI: Other: Abdomen soft, nondistended, nontender. quiet but normoactive bowel sounds in all quadrants. Skin: General skin exam: normal color Other: skin tear to the left upper extremity, Steri-Stripped. No active bleeding. Various areas of ecchymosis to bilateral upper extremities, no particular pattern. In various stages of healing. Neuro: Cranial nerves: Yes Equal, round and reactive pupils present Speech: normal speech Motor exam (neuro): 5/5 motor strength present throughout Sensory Exam: normal sensation Other: A&O x3 Extrem: General: normal to inspection Psych: Mental Status: mental status grossly normal Affect: normal affect Other: fair insight and judgment. Objective Data Vital Signs Vital Signs: Vital Signs - 24 hr 11/17/24 14:00 11/17/24 15:33 11/17/24 16:00 Temperature 97.7 F Pulse Rate 66 62 Respiratory Rate 12 Blood Pressure 145/62 H Pulse Oximetry 98 100 Oxygen Delivery Nasal Cannula Oxygen Flow Rate 2 11/17/24 16:00 11/17/24 17:30 11/17/24 17:30 Temperature 97.7 F Pulse Rate 66 66 Respiratory Rate 17 Blood Pressure 180/74 H Pulse Oximetry 100 Oxygen Delivery Oxygen Flow Rate 3 11/17/24 17:37 11/17/24 18:00 11/17/24 18:00 Temperature Pulse Rate 61 56 L 62 Respiratory Rate Blood Pressure 174/71 H 167/76 H Pulse Oximetry Oxygen Delivery Oxygen Flow Rate 11/17/24 18:15 11/17/24 18:30 11/17/24 18:45 Temperature Pulse Rate 55 L 63 62 Respiratory Rate Blood Pressure 141/54 H 152/69 H 175/76 H Pulse Oximetry Oxygen Delivery Oxygen Flow Rate 11/17/24 19:00 11/17/24 19:15 11/17/24 19:30 Temperature Pulse Rate 61 61 60 Respiratory Rate Blood Pressure 164/80 H 167/73 H 170/78 H Pulse Oximetry Oxygen Delivery Oxygen Flow Rate 11/17/24 19:50 11/17/24 20:00 11/17/24 20:00 Temperature Pulse Rate 63 61 Respiratory Rate Blood Pressure 181/71 H Pulse Oximetry 99 Oxygen Delivery Nasal Cannula Oxygen Flow Rate 3 11/17/24 20:07 11/17/24 20:14 11/17/24 20:36 Temperature 97.5 F L 98.2 F Pulse Rate 59 L 59 L 83 Respiratory Rate 16 18 Blood Pressure 167/74 H 181/77 H 143/67 H Pulse Oximetry 99 99 Oxygen Delivery Oxygen Flow Rate 11/17/24 22:00 11/18/24 00:00 11/18/24 00:00 Temperature Pulse Rate 58 L 58 L Respiratory Rate Blood Pressure Pulse Oximetry 96 Oxygen Delivery Nasal Cannula Oxygen Flow Rate 3 11/18/24 00:40 11/18/24 02:00 11/18/24 03:45 Temperature 98 F 98.3 F Pulse Rate 63 60 66 Respiratory Rate 16 20 Blood Pressure 146/57 H 172/74 H Pulse Oximetry 100 99 Oxygen Delivery Oxygen Flow Rate 11/18/24 04:00 11/18/24 04:00 11/18/24 06:00 Temperature Pulse Rate 59 L 60 Respiratory Rate Blood Pressure Pulse Oximetry 98 Oxygen Delivery Nasal Cannula Oxygen Flow Rate 3 11/18/24 07:33 11/18/24 07:33 11/18/24 08:00 Temperature 98.1 F Pulse Rate 62 60 Respiratory Rate 19 22 H Blood Pressure 148/62 H Pulse Oximetry 94 100 Oxygen Delivery Nasal Cannula Oxygen Flow Rate 2 11/18/24 08:25 11/18/24 08:25 11/18/24 08:33 Temperature 97.7 F Pulse Rate 62 71 Respiratory Rate 20 Blood Pressure 167/70 H 168/71 H Pulse Oximetry 100 Oxygen Delivery Oxygen Flow Rate 1 11/18/24 08:45 11/18/24 09:00 11/18/24 09:15 Temperature Pulse Rate 60 56 L 65 Respiratory Rate Blood Pressure 183/71 H 149/64 H 155/68 H Pulse Oximetry Oxygen Delivery Oxygen Flow Rate 11/18/24 09:30 11/18/24 09:45 11/18/24 10:00 Temperature Pulse Rate 65 65 60 Respiratory Rate Blood Pressure 160/71 H 160/67 H 160/68 H Pulse Oximetry Oxygen Delivery Oxygen Flow Rate 11/18/24 10:15 11/18/24 10:30 11/18/24 10:45 Temperature Pulse Rate 63 64 62 Respiratory Rate Blood Pressure 153/77 H 163/73 H 124/59 L Pulse Oximetry Oxygen Delivery Oxygen Flow Rate 11/18/24 11:00 11/18/24 11:15 11/18/24 11:33 Temperature Pulse Rate 50 L 61 70 Respiratory Rate Blood Pressure 128/54 L 148/66 H 123/61 Pulse Oximetry Oxygen Delivery Oxygen Flow Rate 11/18/24 11:43 Temperature 97.7 F Pulse Rate 68 Respiratory Rate 16 Blood Pressure 153/73 H Pulse Oximetry 100 Oxygen Delivery Oxygen Flow Rate Intake/Output Intake/Output: Intake & Output 11/15/24 11/16/24 11/17/24 11/18/24 23:59 23:59 23:59 23:59 Intake Total 1504.2 1400.0 1000 949.3 Output Total 400 8373 886 5757 Balance 1104.2 385.0 400 -950.7 Meds/Results Medications: Active Medications Generic Name Dose Route Start Last Admin Trade Name Freq PRN Reason Stop Dose Admin Acetaminophen 650 mg 11/13/24 21:38 Acetaminophen 325 Mg Tablet PO Q8H PRN Pain Rated 1-3 Albuterol 2 puff 11/13/24 21:38 Albuterol Sulfate (*Sp) Aerosol 1 Puff INHALATION Q4H PRN Wheezing Artificial Tears 1 drop 11/13/24 21:58 Artificial Tears Ophth Soln 15 Ml Bottle EACH EYE QID PRN Dry Eye(s) Aspirin 81 mg 11/14/24 09:00 11/18/24 12:26 Aspirin 81 Mg Enteric Tablet PO 81 mg DAILY BERNARDO Administration Benzonatate 100 mg 11/13/24 21:38 Benzonatate 100 Mg Capsule PO TID PRN cough Brimonidine Tartrate 1 drop 11/14/24 06:00 11/18/24 05:34 Brimonidine Tartrate 0.2% Op Soln 5 Ml Btl EACH EYE 1 drop Q8HR BERNARDO Administration Brinzolamide 1 drop 11/14/24 06:00 11/18/24 05:34 Brinzolamide 1% Ophth Susp 10 Ml EACH EYE 1 drop Q8HR BERNARDO Administration Cholestyramine Resin 4 gm 11/14/24 10:00 11/18/24 12:44 Cholestyramine (W/ Sugar) 4 Gm Powd.Pack PO Not Given 1000,1300,1800 BERNARDO Dextrose 12.5 gm 11/13/24 21:30 Dextrose 50% 25 Gm/50 Ml Syringe IV PUSH PRN PRN Hypoglycemia Protocol Epoetin Julien-epbx 4,000 units 11/18/24 14:00 11/18/24 10:21 Epoetin Julien-Epbx 4,000 Units/Ml Vial IV PUSH 11/18/24 14:01 4,000 units ONCE ONE Administration Escitalopram Oxalate 15 mg 11/14/24 09:00 11/18/24 12:26 Escitalopram Oxalate 5 Mg Tablet PO 15 mg QAM BERNARDO Administration Fluticasone/Umeclidinium/Vilanterol 1 puff 11/14/24 08:00 11/18/24 07:31 Fluticasone/Umeclidin/Vilanter 100-62.5-25 Mcg Ellipta INHALATION 1 puff DAILYRT BERNARDO Administration Gabapentin 100 mg 11/14/24 09:00 11/18/24 12:25 Gabapentin 100 Mg Capsule PO 100 mg TID BERNARDO Administration Glucagon 1 mg 11/13/24 21:30 Glucagon For Inj 1 Mg Vial IM PRN PRN Hypoglycemia Protocol Glucose 15 gm 11/13/24 21:30 Glucose Oral Gel 15 Gm Of Glucse In 37.5 Gm Tube PO PRN PRN Hypoglycemia Protocol Guaifenesin/Dextromethorphan 10 ml 11/13/24 21:38 Guaifenesin/Dextromethorphan 10 Ml Udc PO Q4-6H PRN Cough Heparin Sodium (Porcine) 5,000 units 11/14/24 22:00 11/18/24 12:44 Heparin Sodium 5,000 Units/Ml Vial SUB-Q 5,000 units Q8HR BERNARDO Administration Dextrose 1,000 mls @ 100 mls/hr 11/13/24 21:30 Dextrose 5% 1,000 Ml IVPB PRN PRN Hypoglycemia Protocol Dextrose 1,000 mls @ 50 mls/hr 11/17/24 12:24 Dextrose 10% IV CONT .Q20H PRN if PN is interrupted Amino Acids/Electrolytes/Dextrose 1,000 mls @ 80 mls/hr 11/17/24 13:00 11/18/24 05:22 Clinimix E 4.25%/5% Solution IV CONT 80 mls/hr .[id number] BERNARDO Administration Protocol Fat Emulsion Intravenous 250 mls @ 20.833 mls/hr 11/17/24 13:00 11/17/24 17:30 Lipids 20% IVPB 20.83 mls/hr Q24H BERNARDO Administration Albumin Human 50 mls @ 999 mls/hr 11/18/24 07:10 Albutein IVPB 12/18/24 07:09 Q10M PRN HYPOTENSION Insulin Aspart 3 - 6 units 11/14/24 08:00 11/18/24 12:45 Insulin Aspart (*Bkc) 100 Units/Ml SUB-Q Not Given TIDWM [facility] Protocol Lidocaine 1 patch 11/14/24 09:00 11/18/24 12:30 Lidocaine 5% Patch TOPICAL 1 patch DAILY [facility] Administration Loperamide HCl 2 mg 11/13/24 21:38 Loperamide Hcl 2 Mg Capsule PO Q6H PRN Diarrhea Melatonin 5 mg 11/13/24 22:00 11/17/24 20:53 Melatonin 5 Mg Tablet PO Not Given HS [facility] Morphine Sulfate 2 mg 11/17/24 10:55 11/17/24 12:27 Morphine Sulfate (*Crx) 2 Mg/Ml Inj IV PUSH 2 mg ONCE PRN Administration Pain Ondansetron HCl 4 mg 11/13/24 21:38 Ondansetron Hcl Odt 4 Mg Tablet PO Q4H PRN Nausea And Vomiting Oxycodone HCl 5 mg 11/13/24 21:38 Oxycodone Hcl (*Crx) 5 Mg Tab Ir PO QHS PRN Pain Rated 4-6 Pantoprazole Sodium 40 mg 11/17/24 09:00 11/18/24 08:09 Pantoprazole Sodium Iv 40 Mg Vial IV PUSH 40 mg QAM BERNARDO Administration Psyllium Hydrophilic Mucilloid 1 packet 11/13/24 22:00 Psyllium Sugar Free Powder Packet PO DAILY PRN constipation Rosuvastatin Calcium 40 mg 11/13/24 22:00 11/17/24 20:53 Rosuvastatin 20 Mg Tablet PO Not Given QHS [facility] Senna 8.6 mg 11/13/24 21:38 Sennosides 8.6 Mg Tablet PO DAILY PRN Constipation Tamsulosin HCl 0.4 mg 11/14/24 09:00 11/18/24 12:25 Tamsulosin Hcl 0.4 Mg Capsule PO 0.4 mg QAM [facility] Administration Radiology Results: ITS Impressions Chest/Abdomen/Pelvis CT 11/14/24 09:27 IMPRESSION: Bilateral renal calculi. Asymmetric mural thickening of the base of the bladder for which direct vis ualization is recommended. Findings which may represent partial distal bowel obstruction with significant air distention of the colon just before the anastomotic staple line and distal decompression. Significant gallbladder distention with trace surrounding inflammatory change. Bibasilar atelectasis. Renal Ultrasound 11/14/24 11:43 Impression: No definite abnormality seen. Visualization of the kidneys is somewhat suboptimal related to patient body habitus. Head CT 11/14/24 18:07 IMPRESSION: No acute intracranial findings. 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 Abdomen/Pelvis CT 11/15/24 09:13 IMPRESSION: 1. Bilateral nephrolithiasis with interval advancement of a 3-4 mm at least part ially obstructing stone now at the left ureterovesicular junction with mild left hydroureteronephrosis. 2. Likely intermittent/partial small bowel obstruction secondary to a volvulus with at least 360 degrees twist of the distalmost small bowel immediately proximal to ileocolic anastomosis with no interval change in mild dilation of a few loops of more proximal small bowel. 3. Prominent dilation of the gallbladder to 6.5 cm but without evident wall thickening or pericholecystic infiltrate stranding to more specifically suggest acute cholecystitis. Correlate with the right upper quadrant ultrasound or HIDA scan. 4. Very small right and trace left pleural effusions and minimal perihepatic ascites. Abdomen Ultrasound 11/15/24 09:16 IMPRESSION: Fatty infiltration of the liver. Hydropic, fluid-filled gallbladder with dependent stones suspected. Hepatobiliary Scan Nuclear Medicine 11/15/24 15:34 IMPRESSION: 1. Normal hepatobiliary scan. Brain MRI 11/16/24 14:12 IMPRESSION: 1. No significant change in chronic infarcts, the largest involving the plantar to the right middle cerebral and portions of the anterior cerebral artery vascu lar distribution. No acute intracranial process. Abdomen X-Ray 11/17/24 13:20 IMPRESSION: Likely partial, intermittent bowel obstruction, as detailed above. Chest X-Ray 11/17/24 15:19 IMPRESSION: Tip of the temporary dialysis catheter is at the cavoatrial junction. Lumbar Puncture Fluoroscopy 11/17/24 16:59 IMPRESSION: 1. Successful fluoro-guided lumbar puncture with normal opening pressure of 19 cm water. Labs Labs: Laboratory Results - last 24 hr 11/17/24 11/17/24 11/17/24 06:58 06:58 13:13 WBC RBC Hgb Hct MCV MCH MCHC RDW Plt Count MPV Immature Gran % (Auto) Neut % (Auto) Lymph % (Auto) Pope % (Auto) Eos % (Auto) Baso % (Auto) Lymph # (Auto) Pope # (Auto) Eos # (Auto) Baso # (Auto) Abs Immat Gran (auto) Absolute Neuts (auto) Absolute Nucleated RBC Nucleated RBC % Sodium Potassium Chloride Carbon Dioxide Anion Gap BUN Creatinine Estim Creat Clear Calc Estimated GFR Glucose POC Capillary Glucose Calcium Phosphorus Triglycerides CSF Source Csf CSF Appearance Clear CSF Color Colorless CSF RBC 0 CSF Tot Nucleated Cells 0 CSF Glucose 105 H CSF Total Protein 81 H Hep Bs Antigen Negative Hep Bs Antibody Negative Hep B Core Total Ab Cancelled Negative 11/17/24 11/17/24 11/18/24 16:05 20:52 00:47 WBC RBC Hgb Hct MCV MCH MCHC RDW Plt Count MPV Immature Gran % (Auto) Neut % (Auto) Lymph % (Auto) Pope % (Auto) Eos % (Auto) Baso % (Auto) Lymph # (Auto) Pope # (Auto) Eos # (Auto) Baso # (Auto) Abs Immat Gran (auto) Absolute Neuts (auto) Absolute Nucleated RBC Nucleated RBC % Sodium Potassium Chloride Carbon Dioxide Anion Gap BUN Creatinine Estim Creat Clear Calc Estimated GFR Glucose POC Capillary Glucose 138 H 136 H 151 H Calcium Phosphorus Triglycerides CSF Source CSF Appearance CSF Color CSF RBC CSF Tot Nucleated Cells CSF Glucose CSF Total Protein Hep Bs Antigen Hep Bs Antibody Hep B Core Total Ab 11/18/24 11/18/24 03:41 12:39 WBC 13.2 H RBC 3.37 L Hgb 9.5 L Hct 28.7 L MCV 85.2 MCH 28.2 MCHC 33.1 RDW 15.8 H Plt Count 254 MPV 8.7 Immature Gran % (Auto) 3.5 H Neut % (Auto) 82.3 H Lymph % (Auto) 7.9 L Pope % (Auto) 5.5 Eos % (Auto) 0.5 Baso % (Auto) 0.3 Lymph # (Auto) 1.04 Pope # (Auto) 0.7 H Eos # (Auto) 0.1 Baso # (Auto) 0.0 Abs Immat Gran (auto) 0.46 H Absolute Neuts (auto) 10.9 H Absolute Nucleated RBC 0.000 Nucleated RBC % 0.0 Sodium 137 Potassium 3.8 Chloride 106 Carbon Dioxide 21 L Anion Gap 10 BUN 71 H D Creatinine 5.43 H Estim Creat Clear Calc 15 Estimated GFR 11 L Glucose 157 H POC Capillary Glucose 137 H Calcium 8.4 Phosphorus 5.5 H Triglycerides 277 H CSF Source CSF Appearance CSF Color CSF RBC CSF Tot Nucleated Cells CSF Glucose CSF Total Protein Hep Bs Antigen Hep Bs Antibody Hep B Core Total Ab Quality VTE Prophylaxis VTE prophylaxis: mechanical ordered
[2024-11-18] MEDS: CHOLESTYRAMINE (W/ SUGAR) 4 GM POWD.PACK PO ×2 (13:35→18:25)
[2024-11-18] MEDS: FAT EMULSIONS IV 20% 250 ML 20.83 ML IVPB (13:35)
--- NOTE | 2024-11-18 14:35 | WPDNEUROLOGY ---
Neurology EEG Report General Information Date of Study: 11/16/24 TEST Electroencephalogram DIAGNOSIS altered mental status , history of right CVA with left hemiparesis CONDITION OF RECORDING bedside recording EEG NUMBER [id number] CLINICAL HISTORY History of dementia with recent change in mental status, patient also has renal failure . There is also history of right CVA with left hemiparesis. EEG DESCRIPTION The background activity consists of poorly formed low amplitude activity in theta range in posterior head region at an amplitude of 10-20 microvolts. Muscle tension artifacts were seen over both hemispheres cells somewhat more prominent over the left than right hemisphere. However intermittent frontally dominant triphasic waves were seen somewhat more over the left than right hemisphere. This may be due to infarct in the right hemisphere which attenuate waveforms over the right hemisphere compared to the left side. IMPRESSION This is an abnormal EEG due to presence of moderate diffuse background slowing suggestive of generalized encephalopathy. Triphasic waves may be seen with metabolic encephalopathy such as renal or hepatic encephalopathy. However the waveform appears somewhat more prominent over the left than right hemisphere Most likely due to an area of large infarct in right middle cerebral artery territory resulting in suppression of waveforms over the right compared the left hemisphere clinical radiographic correlation are recommended. A follow-up study should be considered if relevant in view of the significant muscle tension artifact seen throughout the recording.
[2024-11-18 16:07] LABS: LD, Body Fluid 31 IU/L (.)
--- NOTE | 2024-11-18 16:35 | WPDNEUROPN ---
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 insulin use: with intermediate school teacher use Diabetes mellitus complication status: with hypoglycemia Diabetes mellitus complication detail: without coma Qualified Code(s): E11.649 - Type 2 diabetes mellitus with hypoglycemia without coma; Z79.4 - snf (current) use of insulin Code(s): E11.9 - Type 2 diabetes mellitus without complications Status: Chronic (4) Dilated gallbladder: Code(s): K82.8 - Other specified diseases of gallbladder Status: Acute (5) Small bowel obstruction: Code(s): K56.609 - Unspecified intestinal obstruction, unspecified as to partial versus complete obstruction Status: Acute (6) Bilateral nephrolithiasis: Code(s): N20.0 - Calculus of kidney Status: Acute (7) Elevated serum creatinine: Code(s): R79.89 - Other specified abnormal findings of blood chemistry Status: Acute (8) Chronic obstructive pulmonary disease: Code(s): J44.9 - Chronic obstructive pulmonary disease, unspecified Status: Acute (9) Obstructive sleep apnea: Code(s): G47.33 - Obstructive sleep apnea (adult) (pediatric) Status: Acute Plan MRI of the brain did not show new additional findings and there is evidence of old right middle cerebral artery infarct. Spinal tap also did not show evidence for meningitis. He does have renal failure for which she is being seen by education and training coordinator is on dialysis. EEG shows triphasic waves and diffuse background slowing such as may be seen with a metabolic encephalopathy. Hence based upon or these findings out suggest continued management of his renal failure and other attended medical problems. I shall be glad to follow from neurologic point of view on as-needed basis. Patient is also being seen by curriculum development specialist and surgeons. 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 Spinal tap was performed which shows no cells and protein was 81. His stool is positive for norovirus. Patient unable to offer any history since he remains unresponsive. His creatinine has gone up to 7.0. He also has renal calculus which was extracted by the urologist. There is also some question regarding small bowel obstruction for which surgery is also evaluating him. Patient history obstructive sleep apnea syndrome. MRI of the brain was also performed which shows old male is a artery infarct however no acute or additional findings were noted. Review of Systems Review of Systems: ROS unobtainable: Yes unobtainable due to mental status Exam Narrative: Patient does not respond to verbal stimuli however does respond to painful stimuli. One time he did actually squeeze my fingers with the right hand but does not open his eyes or make any eye contact. He he appears to be spastic on the left side particularly in the left arm. No involuntary movements are seen. Patient unable to cooperate for more extended examination at this time. Objective Data Vital Signs Vital Signs: Vital Signs - 24 hr 11/17/24 17:30 11/17/24 17:30 11/17/24 17:37 Temperature 97.7 F Pulse Rate 66 61 Respiratory Rate 17 Blood Pressure 180/74 H 174/71 H Pulse Oximetry 100 Oxygen Delivery Oxygen Flow Rate 3 11/17/24 18:00 11/17/24 18:00 11/17/24 18:15 Temperature Pulse Rate 56 L 62 55 L Respiratory Rate Blood Pressure 167/76 H 141/54 H Pulse Oximetry Oxygen Delivery Oxygen Flow Rate 11/17/24 18:30 11/17/24 18:45 11/17/24 19:00 Temperature Pulse Rate 63 62 61 Respiratory Rate Blood Pressure 152/69 H 175/76 H 164/80 H Pulse Oximetry Oxygen Delivery Oxygen Flow Rate 11/17/24 19:15 11/17/24 19:30 11/17/24 19:50 Temperature Pulse Rate 61 60 63 Respiratory Rate Blood Pressure 167/73 H 170/78 H 181/71 H Pulse Oximetry Oxygen Delivery Oxygen Flow Rate 11/17/24 20:00 11/17/24 20:00 11/17/24 20:07 Temperature Pulse Rate 61 59 L Respiratory Rate Blood Pressure 167/74 H Pulse Oximetry 99 Oxygen Delivery Nasal Cannula Oxygen Flow Rate 3 11/17/24 20:14 11/17/24 20:36 11/17/24 22:00 Temperature 97.5 F L 98.2 F Pulse Rate 59 L 83 58 L Respiratory Rate 16 18 Blood Pressure 181/77 H 143/67 H Pulse Oximetry 99 99 Oxygen Delivery Oxygen Flow Rate 11/18/24 00:00 11/18/24 00:00 11/18/24 00:40 Temperature 98 F Pulse Rate 58 L 63 Respiratory Rate 16 Blood Pressure 146/57 H Pulse Oximetry 96 100 Oxygen Delivery Nasal Cannula Oxygen Flow Rate 3 11/18/24 02:00 11/18/24 03:45 11/18/24 04:00 Temperature 98.3 F Pulse Rate 60 66 Respiratory Rate 20 Blood Pressure 172/74 H Pulse Oximetry 99 98 Oxygen Delivery Nasal Cannula Oxygen Flow Rate 3 11/18/24 04:00 11/18/24 06:00 11/18/24 07:33 Temperature Pulse Rate 59 L 60 Respiratory Rate Blood Pressure Pulse Oximetry 94 Oxygen Delivery Nasal Cannula Oxygen Flow Rate 2 11/18/24 07:33 11/18/24 08:00 11/18/24 08:00 Temperature 98.1 F Pulse Rate 62 60 Respiratory Rate 19 22 H Blood Pressure 148/62 H Pulse Oximetry 100 99 Oxygen Delivery Nasal Cannula Oxygen Flow Rate 2 11/18/24 08:00 11/18/24 08:25 11/18/24 08:25 Temperature 97.7 F Pulse Rate 53 L 62 Respiratory Rate 20 Blood Pressure 167/70 H Pulse Oximetry 100 Oxygen Delivery Oxygen Flow Rate 1 11/18/24 08:33 11/18/24 08:45 11/18/24 09:00 Temperature Pulse Rate 71 60 56 L Respiratory Rate Blood Pressure 168/71 H 183/71 H 149/64 H Pulse Oximetry Oxygen Delivery Oxygen Flow Rate 11/18/24 09:15 11/18/24 09:30 11/18/24 09:45 Temperature Pulse Rate 65 65 65 Respiratory Rate Blood Pressure 155/68 H 160/71 H 160/67 H Pulse Oximetry Oxygen Delivery Oxygen Flow Rate 11/18/24 10:00 11/18/24 10:00 11/18/24 10:15 Temperature Pulse Rate 60 62 63 Respiratory Rate Blood Pressure 160/68 H 153/77 H Pulse Oximetry Oxygen Delivery Oxygen Flow Rate 11/18/24 10:30 11/18/24 10:45 11/18/24 11:00 Temperature Pulse Rate 64 62 50 L Respiratory Rate Blood Pressure 163/73 H 124/59 L 128/54 L Pulse Oximetry Oxygen Delivery Oxygen Flow Rate 11/18/24 11:15 11/18/24 11:33 11/18/24 11:43 Temperature 97.7 F Pulse Rate 61 70 68 Respiratory Rate 16 Blood Pressure 148/66 H 123/61 153/73 H Pulse Oximetry 100 Oxygen Delivery Oxygen Flow Rate 11/18/24 12:00 11/18/24 12:00 11/18/24 12:00 Temperature 98.4 F Pulse Rate 66 61 Respiratory Rate 20 Blood Pressure 144/56 H Pulse Oximetry 98 99 Oxygen Delivery Nasal Cannula Oxygen Flow Rate 2 11/18/24 14:00 Temperature Pulse Rate 66 Respiratory Rate Blood Pressure Pulse Oximetry Oxygen Delivery Oxygen Flow Rate Intake/Output Intake/Output: Intake & Output 11/15/24 11/16/24 11/17/24 11/18/24 23:59 23:59 23:59 23:59 Intake Total 1504.2 1400.0 1000 1299.3 Output Total 400 6856 331 1837 Balance 1104.2 385.0 400 -600.7 Meds/Results Medications: Active Medications Generic Name Dose Route Start Last Admin Trade Name Freq PRN Reason Stop Dose Admin Acetaminophen 650 mg 11/13/24 21:38 Acetaminophen 325 Mg Tablet PO Q8H PRN Pain Rated 1-3 Albuterol 2 puff 11/13/24 21:38 Albuterol Sulfate (*Sp) Aerosol 1 Puff INHALATION Q4H PRN Wheezing Artificial Tears 1 drop 11/13/24 21:58 Artificial Tears Ophth Soln 15 Ml Bottle EACH EYE QID PRN Dry Eye(s) Aspirin 81 mg 11/14/24 09:00 11/18/24 12:26 Aspirin 81 Mg Enteric Tablet PO 81 mg DAILY BERNARDO Administration Benzonatate 100 mg 11/13/24 21:38 Benzonatate 100 Mg Capsule PO TID PRN cough Brimonidine Tartrate 1 drop 11/14/24 06:00 11/18/24 05:34 Brimonidine Tartrate 0.2% Op Soln 5 Ml Btl EACH EYE 1 drop Q8HR BERNARDO Administration Brinzolamide 1 drop 11/14/24 06:00 11/18/24 05:34 Brinzolamide 1% Ophth Susp 10 Ml EACH EYE 1 drop Q8HR BERNARDO Administration Cholestyramine Resin 4 gm 11/14/24 10:00 11/18/24 13:35 Cholestyramine (W/ Sugar) 4 Gm Powd.Pack PO 4 gm 1000,1300,1800 BERNARDO Administration Dextrose 12.5 gm 11/13/24 21:30 Dextrose 50% 25 Gm/50 Ml Syringe IV PUSH PRN PRN Hypoglycemia Protocol Escitalopram Oxalate 15 mg 11/14/24 09:00 11/18/24 12:26 Escitalopram Oxalate 5 Mg Tablet PO 15 mg QAM BERNARDO Administration Fluticasone/Umeclidinium/Vilanterol 1 puff 11/14/24 08:00 11/18/24 07:31 Fluticasone/Umeclidin/Vilanter 100-62.5-25 Mcg Ellipta INHALATION 1 puff DAILYRT BERNARDO Administration Gabapentin 100 mg 11/14/24 09:00 11/18/24 12:25 Gabapentin 100 Mg Capsule PO 100 mg TID BERNARDO Administration Glucagon 1 mg 11/13/24 21:30 Glucagon For Inj 1 Mg Vial IM PRN PRN Hypoglycemia Protocol Glucose 15 gm 11/13/24 21:30 Glucose Oral Gel 15 Gm Of Glucse In 37.5 Gm Tube PO PRN PRN Hypoglycemia Protocol Guaifenesin/Dextromethorphan 10 ml 11/13/24 21:38 Guaifenesin/Dextromethorphan 10 Ml Udc PO Q4-6H PRN Cough Heparin Sodium (Porcine) 5,000 units 11/14/24 22:00 11/18/24 12:44 Heparin Sodium 5,000 Units/Ml Vial SUB-Q 5,000 units Q8HR BERNARDO Administration Dextrose 1,000 mls @ 100 mls/hr 11/13/24 21:30 Dextrose 5% 1,000 Ml IVPB PRN PRN Hypoglycemia Protocol Dextrose 1,000 mls @ 50 mls/hr 11/17/24 12:24 Dextrose 10% IV CONT .Q20H PRN if PN is interrupted Amino Acids/Electrolytes/Dextrose 1,000 mls @ 80 mls/hr 11/17/24 13:00 11/18/24 05:22 Clinimix E 4.25%/5% Solution IV CONT 80 mls/hr .[id number] BERNARDO Administration Protocol Fat Emulsion Intravenous 250 mls @ 20.833 mls/hr 11/17/24 13:00 11/18/24 13:35 Lipids 20% IVPB 20.83 mls/hr Q24H BERNARDO Administration Albumin Human 50 mls @ 999 mls/hr 11/18/24 07:10 Albutein IVPB 12/18/24 07:09 Q10M PRN HYPOTENSION Insulin Aspart 3 - 6 units 11/14/24 08:00 11/18/24 12:45 Insulin Aspart (*Bkc) 100 Units/Ml SUB-Q Not Given TIDWM [facility] Protocol Lidocaine 1 patch 11/14/24 09:00 11/18/24 12:30 Lidocaine 5% Patch TOPICAL 1 patch DAILY BERNARDO Administration Loperamide HCl 2 mg 11/13/24 21:38 Loperamide Hcl 2 Mg Capsule PO Q6H PRN Diarrhea Melatonin 5 mg 11/13/24 22:00 11/17/24 20:53 Melatonin 5 Mg Tablet PO Not Given HS BERNARDO Morphine Sulfate 2 mg 11/17/24 10:55 11/17/24 12:27 Morphine Sulfate (*Crx) 2 Mg/Ml Inj IV PUSH 2 mg ONCE PRN Administration Pain Ondansetron HCl 4 mg 11/13/24 21:38 Ondansetron Hcl Odt 4 Mg Tablet PO Q4H PRN Nausea And Vomiting Oxycodone HCl 5 mg 11/13/24 21:38 Oxycodone Hcl (*Crx) 5 Mg Tab Ir PO QHS PRN Pain Rated 4-6 Pantoprazole Sodium 40 mg 11/17/24 09:00 11/18/24 08:09 Pantoprazole Sodium Iv 40 Mg Vial IV PUSH 40 mg QAM BERNARDO Administration Psyllium Hydrophilic Mucilloid 1 packet 11/13/24 22:00 Psyllium Sugar Free Powder Packet PO DAILY PRN constipation Rosuvastatin Calcium 40 mg 11/13/24 22:00 11/17/24 20:53 Rosuvastatin 20 Mg Tablet PO Not Given QHS BERNARDO Senna 8.6 mg 11/13/24 21:38 Sennosides 8.6 Mg Tablet PO DAILY PRN Constipation Tamsulosin HCl 0.4 mg 11/14/24 09:00 11/18/24 12:25 Tamsulosin Hcl 0.4 Mg Capsule PO 0.4 mg QAM BERNARDO Administration Radiology Results: ITS Impressions Chest/Abdomen/Pelvis CT 11/14/24 09:27 IMPRESSION: Bilateral renal calculi. Asymmetric mural thickening of the base of the bladder for which direct visualization is recommended. Findings which may represent partial distal bowel obstruction with significant air distention of the colon just before the anastomotic staple line and distal decompression. Significant gallbladder distention with trace surrounding inflammatory change. Bibasilar atelectasis. Renal Ultrasound 11/14/24 11:43 Impression: No definite abnormality seen. Visualization of the kidneys is somewhat suboptimal related to patient body habitus. Head CT 11/14/24 18:07 IMPRESSION: No acute intracranial findings. 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 Abdomen/Pelvis CT 11/15/24 09:13 IMPRESSION: 1. Bilateral nephrolithiasis with interval advancement of a 3-4 mm at least partially obstructing stone now at the left ureterovesicular junction with mild left hydroureteronephrosis. 2. Likely intermittent/partial small bowel obstruction secondary to a volvulus with at least 360 degrees twist of the distalmost small bowel immediately proximal to ileocolic anastomosis with no interval change in mild dilation of a few loops of more proximal small bowel. 3. Prominent dilation of the gallbladder to 6.5 cm but without evident wall thickening or pericholecystic infiltrate stranding to more specifically suggest acute cholecystitis. Correlate with the right upper quadrant ultrasound or HIDA scan. 4. Very small right and trace left pleural effusions and minimal perihepatic ascites. Abdomen Ultrasound 11/15/24 09:16 IMPRESSION: Fatty infiltration of the liver. Hydropic, fluid-filled gallbladder with dependent stones suspected. Hepatobiliary Scan Nuclear Medicine 11/15/24 15:34 IMPRESSION: 1. Normal hepatobiliary scan. Brain MRI 11/16/24 14:12 IMPRESSION: 1. No significant change in chronic infarcts, the largest involving the plantar to the right middle cerebral and portions of the anterior cerebral artery vascular distribution. No acute intracranial process. Abdomen X-Ray 11/17/24 13:20 IMPRESSION: Likely partial, intermittent bowel obstruction, as detailed above. Chest X-Ray 11/17/24 15:19 IMPRESSION: Tip of the temporary dialysis catheter is at the cavoatrial junction. Lumbar Puncture Fluoroscopy 11/17/24 16:59 IMPRESSION: 1. Successful fluoro-guided lumbar puncture with normal opening pressure of 19 cm water. Labs Labs: Laboratory Results - last 24 hr 11/17/24 11/17/24 11/17/24 06:58 13:13 20:52 WBC RBC Hgb Hct MCV MCH MCHC RDW Plt Count MPV Immature Gran % (Auto) Neut % (Auto) Lymph % (Auto) [place] % (Auto) Eos % (Auto) Baso % (Auto) Lymph # (Auto) [place] # (Auto) Eos # (Auto) Baso # (Auto) Abs Immat Gran (auto) Absolute Neuts (auto) Absolute Nucleated RBC Nucleated RBC % Sodium Potassium Chloride Carbon Dioxide Anion Gap BUN Creatinine Estim Creat Clear Calc Estimated GFR Glucose POC Capillary Glucose 136 H Calcium Phosphorus Triglycerides Fluid LDH 31 Hep B Core Total Ab Negative 11/18/24 11/18/24 11/18/24 00:47 03:41 12:39 WBC 13.2 H RBC 3.37 L Hgb 9.5 L Hct 28.7 L MCV 85.2 MCH 28.2 MCHC 33.1 RDW 15.8 H Plt Count 254 MPV 8.7 Immature Gran % (Auto) 3.5 H Neut % (Auto) 82.3 H Lymph % (Auto) 7.9 L [place] % (Auto) 5.5 Eos % (Auto) 0.5 Baso % (Auto) 0.3 Lymph # (Auto) 1.04 [place] # (Auto) 0.7 H Eos # (Auto) 0.1 Baso # (Auto) 0.0 Abs Immat Gran (auto) 0.46 H Absolute Neuts (auto) 10.9 H Absolute Nucleated RBC 0.000 Nucleated RBC % 0.0 Sodium 137 Potassium 3.8 Chloride 106 Carbon Dioxide 21 L Anion Gap 10 BUN 71 H D Creatinine 5.43 H Estim Creat Clear Calc 15 Estimated GFR 11 L Glucose 157 H POC Capillary Glucose 151 H 137 H Calcium 8.4 Phosphorus 5.5 H Triglycerides 277 H Fluid LDH Hep B Core Total Ab
[2024-11-18] MEDS: ROSUVASTATIN 20 MG TABLET 40 MG PO (21:32)
[2024-11-18] MEDS: MELATONIN 5 MG TABLET PO (21:32)
[2024-11-19] VITALS (22 sets, daily range): BP systolic 122–161; BP diastolic 44–58; PULSE 39–59; RESP 14–20; TEMP 36.6–37.2; O2SAT 92–100
[2024-11-19] MEDS: AMINO ACIDS 4.25%/D5W/LYTES/CA 1,000 ML 80 ML IV CONT ×2 (02:30→14:21)
[2024-11-19 04:58] LABS: Hematocrit 29.8 % (42.0-52.0); Hemoglobin 9.5 g/dL (14.0-18.0); Immature Granulocyte Percent A 4.7 % (0-0.5); Lymphocytes Absolute Auto 1.47 K/mm3 (0.9-3.2); Mean Corpuscular HGB Conc 31.9 g/dl (32-36); Mean Corpuscular Hemoglobin 27.8 pg (26-34); Mean Corpuscular Volume 87.1 fl (80-100); Nucleated Red Blood Cells Absolute Auto 0.000 K/mm3 (0.0-0.012); Nucleated Red Blood Cells Perc 0.0 % (0.0-0.2); Platelet Count Result 197 k/mm3 (150-375); Red Blood Count 3.42 M/mm3 (4.6-6.20); White Blood Count 10.1 K/mm3 (4.5-10.0)
[2024-11-19 05:27] LABS: Alanine Aminotransferase 15 U/L (6-50); Albumin Level 2.6 g/dL (3.5-5.1); Alkaline Phosphatase 115 U/L (38-126); Anion Gap 9 mmol/L (4-12); Aspartate Amino Transferase 27 U/L (17-59); Bilirubin,Total 0.2 mg/dL (0.2-1.3); Blood Urea Nitrogen 52 mg/dL (9-20); Calcium 8.2 mg/dL (8.4-10.2); Carbon Dioxide 25 mmol/L (22-30); Chloride 104 mmol/L (98-107); Estimated CRCL calculation 20 ml/min; Estimated Glomerular Filt Rate 14; Glucose 127 mg/dL (65-110); Magnesium 2.0 mg/dL (1.6-2.3); Potassium 3.4 mmol/L (3.4-5.0); Sodium 138 mmol/L (137-145); Total Protein 5.4 g/dL (6.3-8.2)
[2024-11-19] MEDS: BRIMONIDINE TARTRATE 0.2% OP SOLN 5 ML BTL 1 DROP EACH EYE ×3 (06:51→21:20)
[2024-11-19] MEDS: BRINZOLAMIDE 1% OPHTH SUSP 10 ML 1 DROP EACH EYE ×3 (06:51→21:20)
--- NOTE | 2024-11-19 07:52 | PM.PNGS ---
Progress Note: A&P Assessment and Plan (1) SBO (small bowel obstruction): Code(s): K56.609 - Unspecified intestinal obstruction, unspecified as to partial versus complete obstruction Status: Acute Assessment and Plan: continue NG decompression and bowel rest for now, continue PPN (2) Acute renal failure: Qualifiers: Acute renal failure type: unspecified Qualified Code(s): N17.9 - Acute kidney failure, unspecified Code(s): N17.9 - Acute kidney failure, unspecified Status: Acute Assessment and Plan: continue hemodialysis through temporary dialysis catheter, seems to be more alert today Subjective Subjective Date/Time Seen: 11/19/24 07:52 Interval history: more alert today, still confused Review of Systems Review of Systems: ROS unobtainable: Yes unobtainable due to mental status Exam Const: General: cooperative, no acute distress and ill appearing Resp: Auscultation: diminished lung sounds Cardio: Rate: regular rate Rhythm: regular rhythm GI: Inspection: normal to inspection and distended GI Palp: No abdominal tenderness and Yes Soft to palpation Objective Data Vital Signs Vital Signs: Vital Signs - 24 hr 11/18/24 08:00 11/18/24 08:00 11/18/24 08:00 Temperature 36.7 C Pulse Rate 60 53 L Respiratory Rate 22 H Blood Pressure 148/62 H Pulse Oximetry 100 99 Oxygen Delivery Nasal Cannula Oxygen Flow Rate 2 11/18/24 08:25 11/18/24 08:25 11/18/24 08:33 Temperature 36.5 C Pulse Rate 62 71 Respiratory Rate 20 Blood Pressure 167/70 H 168/71 H Pulse Oximetry 100 Oxygen Delivery Oxygen Flow Rate 1 11/18/24 08:45 11/18/24 09:00 11/18/24 09:15 Temperature Pulse Rate 60 56 L 65 Respiratory Rate Blood Pressure 183/71 H 149/64 H 155/68 H Pulse Oximetry Oxygen Delivery Oxygen Flow Rate 11/18/24 09:30 11/18/24 09:45 11/18/24 10:00 Temperature Pulse Rate 65 65 60 Respiratory Rate Blood Pressure 160/71 H 160/67 H 160/68 H Pulse Oximetry Oxygen Delivery Oxygen Flow Rate 11/18/24 10:00 11/18/24 10:15 11/18/24 10:30 Temperature Pulse Rate 62 63 64 Respiratory Rate Blood Pressure 153/77 H 163/73 H Pulse Oximetry Oxygen Delivery Oxygen Flow Rate 11/18/24 10:45 11/18/24 11:00 11/18/24 11:15 Temperature Pulse Rate 62 50 L 61 Respiratory Rate Blood Pressure 124/59 L 128/54 L 148/66 H Pulse Oximetry Oxygen Delivery Oxygen Flow Rate 11/18/24 11:33 11/18/24 11:43 11/18/24 12:00 Temperature 36.5 C 36.9 C Pulse Rate 70 68 66 Respiratory Rate 16 20 Blood Pressure 123/61 153/73 H 144/56 H Pulse Oximetry 100 98 Oxygen Delivery Oxygen Flow Rate 11/18/24 12:00 11/18/24 12:00 11/18/24 14:00 Temperature Pulse Rate 61 66 Respiratory Rate Blood Pressure Pulse Oximetry 99 Oxygen Delivery Nasal Cannula Oxygen Flow Rate 2 11/18/24 16:00 11/18/24 16:00 11/18/24 16:00 Temperature 36.4 C Pulse Rate 66 56 L Respiratory Rate 22 H Blood Pressure 168/59 H Pulse Oximetry 100 100 Oxygen Delivery Nasal Cannula Oxygen Flow Rate 2 11/18/24 18:00 11/18/24 19:38 11/18/24 20:00 Temperature 36.9 C Pulse Rate 51 L 53 L 53 L Respiratory Rate 18 Blood Pressure 122/49 L Pulse Oximetry 99 Oxygen Delivery Oxygen Flow Rate 11/18/24 20:00 11/18/24 22:00 11/18/24 23:41 Temperature 36.9 C Pulse Rate 55 L 54 L Respiratory Rate 21 H Blood Pressure 120/52 L Pulse Oximetry 100 99 Oxygen Delivery Nasal Cannula Oxygen Flow Rate 2 11/19/24 00:00 11/19/24 00:00 11/19/24 02:00 Temperature Pulse Rate 52 L 53 L Respiratory Rate Blood Pressure Pulse Oximetry 99 Oxygen Delivery Nasal Cannula Oxygen Flow Rate 2 11/19/24 04:00 11/19/24 04:00 11/19/24 04:46 Temperature 36.6 C Pulse Rate 54 L 47 L Respiratory Rate 20 Blood Pressure 122/44 L Pulse Oximetry 99 99 Oxygen Delivery Nasal Cannula Oxygen Flow Rate 2 11/19/24 06:00 Temperature Pulse Rate 48 L Respiratory Rate Blood Pressure Pulse Oximetry Oxygen Delivery Oxygen Flow Rate Intake/Output Intake/Output: Intake & Output 11/16/24 11/17/24 11/18/2425 23:59 23:59 23:59 23:59 Intake Total 1400.0 1000 2256.6 250 Output Total 7989 859 5665 450 Balance 385.0 400 -1243.4 -200 Meds/Results Medications: Active Medications Generic Name Dose Route Start Last Admin Trade Name Freq PRN Reason Stop Dose Admin Acetaminophen 650 mg 11/13/24 21:38 Acetaminophen 325 Mg Tablet PO Q8H PRN Pain Rated 1-3 Albuterol 2 puff 11/13/24 21:38 Albuterol Sulfate (*Sp) Aerosol 1 Puff INHALATION Q4H PRN Wheezing Artificial Tears 1 drop 11/13/24 21:58 Artificial Tears Ophth Soln 15 Ml Bottle EACH EYE QID PRN Dry Eye(s) Aspirin 81 mg 11/14/24 09:00 11/18/24 12:26 Aspirin 81 Mg Enteric Tablet PO 81 mg DAILY BERNARDO Administration Benzonatate 100 mg 11/13/24 21:38 Benzonatate 100 Mg Capsule PO TID PRN cough Brimonidine Tartrate 1 drop 11/14/24 06:00 11/19/24 06:51 Brimonidine Tartrate 0.2% Op Soln 5 Ml Btl EACH EYE 1 drop Q8HR BERNARDO Administration Brinzolamide 1 drop 11/14/24 06:00 11/19/24 06:51 Brinzolamide 1% Ophth Susp 10 Ml EACH EYE 1 drop Q8HR BERNARDO Administration Cholestyramine Resin 4 gm 11/14/24 10:00 11/18/24 18:25 Cholestyramine (W/ Sugar) 4 Gm Powd.Pack PO 4 gm 1000,1300,1800 BERNARDO Administration Dextrose 12.5 gm 11/13/24 21:30 Dextrose 50% 25 Gm/50 Ml Syringe IV PUSH PRN PRN Hypoglycemia Protocol Escitalopram Oxalate 15 mg 11/14/24 09:00 11/18/24 12:26 Escitalopram Oxalate 5 Mg Tablet PO 15 mg QAM BERNARDO Administration Fluticasone/Umeclidinium/Vilanterol 1 puff 11/14/24 08:00 11/18/24 07:31 Fluticasone/Umeclidin/Vilanter 100-62.5-25 Mcg Ellipta INHALATION 1 puff DAILYRT BERNARDO Administration Gabapentin 100 mg 11/14/24 09:00 11/18/24 17:22 Gabapentin 100 Mg Capsule PO 100 mg TID BERNARDO Administration Glucagon 1 mg 11/13/24 21:30 Glucagon For Inj 1 Mg Vial IM PRN PRN Hypoglycemia Protocol Glucose 15 gm 11/13/24 21:30 Glucose Oral Gel 15 Gm Of Glucse In 37.5 Gm Tube PO PRN PRN Hypoglycemia Protocol Guaifenesin/Dextromethorphan 10 ml 11/13/24 21:38 Guaifenesin/Dextromethorphan 10 Ml Udc PO Q4-6H PRN Cough Heparin Sodium (Porcine) 5,000 units 11/14/24 22:00 11/19/24 06:52 Heparin Sodium 5,000 Units/Ml Vial SUB-Q 5,000 units Q8HR BERNARDO Administration Dextrose 1,000 mls @ 100 mls/hr 11/13/24 21:30 Dextrose 5% 1,000 Ml IVPB PRN PRN Hypoglycemia Protocol Dextrose 1,000 mls @ 50 mls/hr 11/17/24 12:24 Dextrose 10% IV CONT .Q20H PRN if PN is interrupted Amino Acids/Electrolytes/Dextrose 1,000 mls @ 80 mls/hr 11/17/24 13:00 11/18/24 17:20 Clinimix E 4.25%/5% Solution IV CONT 80 mls/hr .[id number] BERNARDO Administration Protocol Fat Emulsion Intravenous 250 mls @ 20.833 mls/hr 11/17/24 13:00 11/19/24 01:36 Lipids 20% IVPB Infused Q24H BERNARDO Infusion Albumin Human 50 mls @ 999 mls/hr 11/18/24 07:10 Albutein IVPB 12/18/24 07:09 Q10M PRN HYPOTENSION Insulin Aspart 3 - 6 units 11/14/24 08:00 11/18/24 17:21 Insulin Aspart (*Bkc) 100 Units/Ml SUB-Q Not Given TIDWM BERNARDO Protocol Lidocaine 1 patch 11/14/24 09:00 11/18/24 12:30 Lidocaine 5% Patch TOPICAL 1 patch DAILY BERNARDO Administration Loperamide HCl 2 mg 11/13/24 21:38 Loperamide Hcl 2 Mg Capsule PO Q6H PRN Diarrhea Melatonin 5 mg 11/13/24 22:00 11/18/24 21:32 Melatonin 5 Mg Tablet PO 5 mg HS BERNARDO Administration Morphine Sulfate 2 mg 11/17/24 10:55 11/17/24 12:27 Morphine Sulfate (*Crx) 2 Mg/Ml Inj IV PUSH 2 mg ONCE PRN Administration Pain Ondansetron HCl 4 mg 11/13/24 21:38 Ondansetron Hcl Odt 4 Mg Tablet PO Q4H PRN Nausea And Vomiting Oxycodone HCl 5 mg 11/13/24 21:38 Oxycodone Hcl (*Crx) 5 Mg Tab Ir PO QHS PRN Pain Rated 4-6 Pantoprazole Sodium 40 mg 11/17/24 09:00 11/18/24 08:09 Pantoprazole Sodium Iv 40 Mg Vial IV PUSH 40 mg QAM BERNARDO Administration Psyllium Hydrophilic Mucilloid 1 packet 11/13/24 22:00 Psyllium Sugar Free Powder Packet PO DAILY PRN constipation Rosuvastatin Calcium 40 mg 11/13/24 22:00 11/18/24 21:32 Rosuvastatin 20 Mg Tablet PO 40 mg QHS BERNARDO Administration Senna 8.6 mg 11/13/24 21:38 Sennosides 8.6 Mg Tablet PO DAILY PRN Constipation Tamsulosin HCl 0.4 mg 11/14/24 09:00 11/18/24 12:25 Tamsulosin Hcl 0.4 Mg Capsule PO 0.4 mg QAM BERNARDO Administration Radiology Results: ITS Impressions Chest/Abdomen/Pelvis CT 11/14/24 09:27 IMPRESSION: Bilateral renal calculi. Asymmetric mural thickening of the base of the bladder for which direct visualization is recommended. Findings which may represent partial distal bowel obstruction with significant air distention of the colon just before the anastomotic staple line and distal decompression. Significant gallbladder distention with trace surrounding inflammatory change. Bibasilar atelectasis. Renal Ultrasound 11/14/24 11:43 Impression: No definite abnormality seen. Visualization of the kidneys is somewhat suboptimal related to patient body habitus. Head CT 11/14/24 18:07 IMPRESSION: No acute intracranial findings. 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 Abdomen/Pelvis CT 11/15/24 09:13 IMPRESSION: 1. Bilateral nephrolithiasis with interval advancement of a 3-4 mm at least partially obstructing stone now at the left ureterovesicular junction with mild left hydroureteronephrosis. 2. Likely intermittent/partial small bowel obstruction secondary to a volvulus with at least 360 degrees twist of the distalmost small bowel immediately proximal to ileocolic anastomosis with no interval change in mild dilation of a few loops of more proximal small bowel. 3. Prominent dilation of the gallbladder to 6.5 cm but without evident wall thickening or pericholecystic infiltrate stranding to more specifically suggest acute cholecystitis. Correlate with the right upper quadrant ultrasound or HIDA scan. 4. Very small right and trace left pleural effusions and minimal perihepatic ascites. Abdomen Ultrasound 11/15/24 09:16 IMPRESSION: Fatty infiltration of the liver. Hydropic, fluid-filled gallbladder with dependent stones suspected. Hepatobiliary Scan Nuclear Medicine 11/15/24 15:34 IMPRESSION: 1. Normal hepatobiliary scan. Brain MRI 11/16/24 14:12 IMPRESSION: 1. No significant change in chronic infarcts, the largest involving the plantar to the right middle cerebral and portions of the anterior cerebral artery vascular distribution. No acute intracranial process. Abdomen X-Ray 11/17/24 13:20 IMPRESSION: Likely partial, intermittent bowel obstruction, as detailed above. Chest X-Ray 11/17/24 15:19 IMPRESSION: Tip of the temporary dialysis catheter is at the cavoatrial junction. Lumbar Puncture Fluoroscopy 11/17/24 16:59 IMPRESSION: 1. Successful fluoro-guided lumbar puncture with normal opening pressure of 19 cm water. Labs Labs: Laboratory Results - last 24 hr 11/17/24 11/18/24 11/18/24 13:13 12:39 16:29 WBC RBC Hgb Hct MCV MCH MCHC RDW Plt Count MPV Immature Gran % (Auto) Neut % (Auto) Lymph % (Auto) Evangeline % (Auto) Eos % (Auto) Baso % (Auto) Lymph # (Auto) Evangeline # (Auto) Eos # (Auto) Baso # (Auto) Abs Immat Gran (auto) Absolute Neuts (auto) Absolute Nucleated RBC Nucleated RBC % Sodium Potassium Chloride Carbon Dioxide Anion Gap BUN Creatinine Estim Creat Clear Calc Estimated GFR Glucose POC Capillary Glucose 137 H 140 H Calcium Phosphorus Magnesium Total Bilirubin AST ALT Alkaline Phosphatase Total Protein Albumin Fluid LDH 31 11/18/24 11/19/24 23:54 04:03 WBC 10.1 H RBC 3.42 L Hgb 9.5 L Hct 29.8 L MCV 87.1 MCH 27.8 MCHC 31.9 L RDW 15.7 H Plt Count 197 MPV 8.9 Immature Gran % (Auto) 4.7 H Neut % (Auto) 66.7 Lymph % (Auto) 14.6 L Evangeline % (Auto) 8.6 H Eos % (Auto) 5.0 H Baso % (Auto) 0.4 Lymph # (Auto) 1.47 Evangeline # (Auto) 0.9 H Eos # (Auto) 0.5 H Baso # (Auto) 0.0 Abs Immat Gran (auto) 0.47 H Absolute Neuts (auto) 6.7 Absolute Nucleated RBC 0.000 Nucleated RBC % 0.0 Sodium 138 Potassium 3.4 Chloride 104 Carbon Dioxide 25 Anion Gap 9 BUN 52 H D Creatinine 4.13 H Estim Creat Clear Calc 20 Estimated GFR 14 L Glucose 127 H POC Capillary Glucose 114 H Calcium 8.2 L Phosphorus 4.5 Magnesium 2.0 Total Bilirubin 0.2 AST 27 ALT 15 Alkaline Phosphatase 115 Total Protein 5.4 L Albumin 2.6 L Fluid LDH
[2024-11-19] MEDS: FLUTICASONE/UMECLIDIN/VILANTER 100-62.5-25 MCG ELLIPTA 1 PUFF INHALATION (08:19)
[2024-11-19] MEDS: LIDOCAINE 5% PATCH 1 PATCH TOPICAL (09:59)
[2024-11-19] MEDS: PANTOPRAZOLE SODIUM IV 40 MG VIAL IV PUSH (10:20)
--- NOTE | 2024-11-19 10:45 | P.PNNP_ITS ---
Progress Note: A&P Assessment and Plan (1) Acute kidney injury: Code(s): N17.9 - Acute kidney failure, unspecified Status: Acute Assessment and Plan: * as noted by admission labs * baseline creatinine seems to run ~ 1.1 - 1.3mg/dl * creatinine 1.13mg/dl in July 2024 * suspect multifactorial etiology: * prerenal factors * hypotension/hemodynamic instability * urinary retention/obstruction * infection (gallbladder?) * other(?) * evaluation to date noted: * urine electrolytes prerenal * rare urine eosinophils -- possible AIN? (however, no rash or peripheral eosinophilia) * CPK mildly elevated (but not enough to affect kidney function) * mild proteinuria * UA without evidence of infection * renal ultrasound negative (but limited due to body habitus) * HD on 11/17 and 11/18 * likely plan HD tomorrow * follow trend of repeat labs and UOP for potential recovery (2) Altered mental status: Code(s): R41.82 - Altered mental status, unspecified Status: Acute Assessment and Plan: * slow improvement noted * as noted since 11/15 * etiology?? -- related to renal failure?? * Neurology recommendations noted * MRI of brain noted * s/p lumbar puncture - follow-up on pending tests * follow mentation (3) SBO (small bowel obstruction): Code(s): K56.609 - Unspecified intestinal obstruction, unspecified as to partial versus complete obstruction Status: Acute Assessment and Plan: * admission CT demonstrated findings which may represent partial distal bowel obstruction with significant air distention of the colon just before the and anastomotic staple line and distal decompression * repeat CT scan noted as well * NG tube in place * Surgery following with recommendations noted * PPN initiated for nutritional support * continue supportive therapy (4) Dilated gallbladder: Code(s): K82.8 - Other specified diseases of gallbladder Status: Acute Assessment and Plan: * admission CT demonstrated significant gallbladder distention with trace surrounding inflammatory change * repeat CT scan noted as well * normal LFTs * abdominal exam positive for diffuse tenderness to palpation (but unreliable given AMS) * no nausea or vomiting * Surgery following - poor surgical candidate if intervention needed... (5) Bilateral nephrolithiasis: Code(s): N20.0 - Calculus of kidney Status: Acute Assessment and Plan: * admission and repeat CT scan noted/reviewed * Urology recommendations noted * s/p cystoscopy, stone extraction, bilateral ureteral stent placement (on 11/16) * continue supportive therapy (6) Anemia: Code(s): D64.9 - Anemia, unspecified Status: Acute Assessment and Plan: * related to BRYCE and acute illness * Epogen with HD if needed * follow trend of H/H (7) Hypertension: Qualifiers: Hypertension type: primary hypertension Qualified Code(s): I10 - Essential (primary) hypertension Code(s): I10 - Essential (primary) hypertension Status: Chronic Assessment and Plan: * slowly resume home BP medications * initially hypotensive on admission * follow trend of hemodynamics (8) Type 2 diabetes mellitus: Qualifiers: Diabetes mellitus intermediate designer insulin use: with intermediate designer use Diabetes mellitus complication status: with hypoglycemia Diabetes mellitus complication detail: without coma Qualified Code(s): E11.649 - Type 2 diabetes mellitus with hypoglycemia without coma; 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 Code(s): E11.9 - Type 2 diabetes mellitus without complications Status: Chronic Assessment and Plan: * issues with hypoglyemia prior to admission noted * follow accu-cheks * glycemic control per hospitalist Will continue to follow. L Subjective Date/time seen: 11/19/24 10:45 Interval history: Follow-up for acute kidney injury/acute renal failure. Tolerated dialysis treatment yesterday without any issues or problems; mentation has improved since I last saw him -- he is more awake/alert and conversant at the time of my visit; no other issues/events overnight or earlier this AM. Exam 2 Narrative: General: large but ill-appearing male in NAD; more interactive Heart: normal S1 and S2; no rub Lungs: clear anteriorly Abdomen: obese with diminished bowel sounds Extremities: no cyanosis or clubbing; trace edema Skin: warm and dry Objective Data Vital Signs Vital Signs: Vital Signs Temp Pulse Resp BP Pulse Ox O2 Del Method O2 Flow Rate 11/19/24 10:37 99.0 F 51 L 14 135/50 L 92 11/19/24 08:20 53 L 14 98 Nasal Cannula 1 11/19/24 08:19 53 L 14 11/19/24 08:00 98.2 F 44 L 14 137/49 L 100 11/19/24 06:00 48 L 11/19/24 04:46 97.8 F 47 L 20 122/44 L 99 11/19/24 04:00 99 Nasal Cannula 2 11/19/24 04:00 54 L 11/19/24 02:00 53 L 11/19/24 00:00 99 Nasal Cannula 2 11/19/24 00:00 52 L 11/18/24 23:41 98.4 F 54 L 21 H 120/52 L 99 11/18/24 22:00 55 L 11/18/24 20:00 100 Nasal Cannula 2 11/18/24 20:00 53 L 11/18/24 19:38 98.4 F 53 L 18 122/49 L 99 11/18/24 18:00 51 L 11/18/24 16:00 56 L 11/18/24 16:00 100 Nasal Cannula 2 11/18/24 16:00 97.6 F 66 22 H 168/59 H 100 11/18/24 14:00 66 Intake/Output Intake/Output: Intake & Output 11/16/24 11/17/24 11/18/24 11/19/24 23:59 23:59 23:59 23:59 Intake Total 1400.0 1000 2256.6 983.3 Output Total 8376 030 1074 1050 Balance 385.0 400 -1243.4 -66.7 Meds/Results Medications: Active Medications Generic Name Dose Route Start Last Admin Trade Name Freq PRN Reason Stop Dose Admin Acetaminophen 650 mg 11/13/24 21:38 Acetaminophen 325 Mg Tablet PO Q8H PRN Pain Rated 1-3 Acetaminophen 325 mg 11/19/24 12:11 Acetaminophen 325 Mg Suppository RECTAL Q4H PRN Mild Pain (1-3) or Fever Albuterol 2 puff 11/13/24 21:38 Albuterol Sulfate (*Sp) Aerosol 1 Puff INHALATION Q4H PRN Wheezing Artificial Tears 1 drop 11/13/24 21:58 Artificial Tears Ophth Soln 15 Ml Bottle EACH EYE QID PRN Dry Eye(s) Aspirin 81 mg 11/14/24 09:00 11/19/24 08:24 Aspirin 81 Mg Enteric Tablet PO Not Given DAILY BERNARDO Benzonatate 100 mg 11/13/24 21:38 Benzonatate 100 Mg Capsule PO TID PRN cough Brimonidine Tartrate 1 drop 11/14/24 06:00 11/19/24 06:51 Brimonidine Tartrate 0.2% Op Soln 5 Ml Btl EACH EYE 1 drop Q8HR BERNARDO Administration Brinzolamide 1 drop 11/14/24 06:00 11/19/24 06:51 Brinzolamide 1% Ophth Susp 10 Ml EACH EYE 1 drop Q8HR BERNARDO Administration Cholestyramine Resin 4 gm 11/14/24 10:00 11/19/24 08:27 Cholestyramine (W/ Sugar) 4 Gm Powd.Pack PO Not Given 1000,1300,1800 BERNARDO Dextrose 12.5 gm 11/13/24 21:30 Dextrose 50% 25 Gm/50 Ml Syringe IV PUSH PRN PRN Hypoglycemia Protocol Escitalopram Oxalate 15 mg 11/14/24 09:00 11/19/24 08:24 Escitalopram Oxalate 5 Mg Tablet PO Not Given QAM BERNARDO Gabapentin 100 mg 11/14/24 09:00 11/19/24 08:27 Gabapentin 100 Mg Capsule PO Not Given TID BERNARDO Glucagon 1 mg 11/13/24 21:30 Glucagon For Inj 1 Mg Vial IM PRN PRN Hypoglycemia Protocol Glucose 15 gm 11/13/24 21:30 Glucose Oral Gel 15 Gm Of Glucse In 37.5 Gm Tube PO PRN PRN Hypoglycemia Protocol Guaifenesin/Dextromethorphan 10 ml 11/13/24 21:38 Guaifenesin/Dextromethorphan 10 Ml Udc PO Q4-6H PRN Cough Heparin Sodium (Porcine) 5,000 units 11/14/24 22:00 11/19/24 06:52 Heparin Sodium 5,000 Units/Ml Vial SUB-Q 5,000 units Q8HR BERNARDO Administration Dextrose 1,000 mls @ 100 mls/hr 11/13/24 21:30 Dextrose 5% 1,000 Ml IVPB PRN PRN Hypoglycemia Protocol Dextrose 1,000 mls @ 50 mls/hr 11/17/24 12:24 Dextrose 10% IV CONT .Q20H PRN if PN is interrupted Amino Acids/Electrolytes/Dextrose 1,000 mls @ 80 mls/hr 11/17/24 13:00 11/19/24 02:30 Clinimix E 4.25%/5% Solution IV CONT 80 mls/hr .[id number] BERNARDO Administration Protocol Fat Emulsion Intravenous 250 mls @ 20.833 mls/hr 11/17/24 13:00 11/19/24 01:36 Lipids 20% IVPB Infused Q24H [facility] Infusion Albumin Human 50 mls @ 999 mls/hr 11/18/24 07:10 Albutein IVPB 12/18/24 07:09 Q10M PRN HYPOTENSION Insulin Aspart 3 - 6 units 11/14/24 08:00 11/19/24 12:24 Insulin Aspart (*Bkc) 100 Units/Ml SUB-Q Not Given TIDWM [facility] Protocol Lidocaine 1 patch 11/14/24 09:00 11/19/24 09:59 Lidocaine 5% Patch TOPICAL 1 patch DAILY BERNARDO Administration Loperamide HCl 2 mg 11/13/24 21:38 Loperamide Hcl 2 Mg Capsule PO Q6H PRN Diarrhea Melatonin 5 mg 11/13/24 22:00 11/19/24 08:26 Melatonin 5 Mg Tablet PO Not Given HS [facility] Nicotine 1 patch 11/19/24 12:15 Nicotine (*Pbkc) 21 Mg Patch TRANSDERM DAILY [facility] Ondansetron HCl 4 mg 11/13/24 21:38 Ondansetron Hcl Odt 4 Mg Tablet PO Q4H PRN Nausea And Vomiting Oxycodone HCl 5 mg 11/13/24 21:38 Oxycodone Hcl (*Crx) 5 Mg Tab Ir PO QHS PRN Pain Rated 4-6 Pantoprazole Sodium 40 mg 11/17/24 09:00 11/19/24 10:20 Pantoprazole Sodium Iv 40 Mg Vial IV PUSH 40 mg QAM [facility] Administration Psyllium Hydrophilic Mucilloid 1 packet 11/13/24 22:00 Psyllium Sugar Free Powder Packet PO DAILY PRN constipation Rosuvastatin Calcium 40 mg 11/13/24 22:00 11/19/24 08:27 Rosuvastatin 20 Mg Tablet PO Not Given QHS [facility] Fluticasone/Salmeterol 2 puff 11/19/24 20:00 Fluticasone/Salmeterol 45-21 Mcg Inhaler 1 Puff INHALATION Q12HRT [facility] Senna 8.6 mg 11/13/24 21:38 Sennosides 8.6 Mg Tablet PO DAILY PRN Constipation Tamsulosin HCl 0.4 mg 11/14/24 09:00 11/19/24 08:25 Tamsulosin Hcl 0.4 Mg Capsule PO Not Given QAM [facility] Radiology Results: ITS Impressions Chest/Abdomen/Pelvis CT 11/14/24 09:27 IMPRESSION: Bilateral renal calculi. Asymmetric mural thickening of the base of the bladder for which direct visualization is recommended. Findings which may represent partial distal bowel obstruction with significant air distention of the colon just before the anastomotic staple line and distal decompression. Significant gallbladder distention with trace surrounding inflammatory change. Bibasilar atelectasis. Renal Ultrasound 11/14/24 11:43 Impression: No definite abnormality seen. Visualization of the kidneys is somewhat suboptimal related to patient body habitus. Head CT 11/14/24 18:07 IMPRESSION: No acute intracranial findings. 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 Abdomen/Pelvis CT 11/15/24 09:13 IMPRESSION: 1. Bilateral nephrolithiasis with interval advancement of a 3-4 mm at least partially obstructing stone now at the left ureterovesicular junction with mild left hydroureteronephrosis. 2. Likely intermittent/partial small bowel obstruction secondary to a volvulus with at least 360 degrees twist of the distalmost small bowel immediately proximal to ileocolic anastomosis with no interval change in mild dilation of a few loops of more proximal small bowel. 3. Prominent dilation of the gallbladder to 6.5 cm but without evident wall thickening or pericholecystic infiltrate stranding to more specifically suggest acute cholecystitis. Correlate with the right upper quadrant ultrasound or HIDA scan. 4. Very small right and trace left pleural effusions and minimal perihepatic ascites. Abdomen Ultrasound 11/15/24 09:16 IMPRESSION: Fatty infiltration of the liver. Hydropic, fluid-filled gallbladder with dependent stones suspected. Hepatobiliary Scan Nuclear Medicine 11/15/24 15:34 IMPRESSION: 1. Normal hepatobiliary scan. Brain MRI 11/16/24 14:12 IMPRESSION: 1. No significant change in chronic infarcts, the largest involving the plantar to the right middle cerebral and portions of the anterior cerebral artery vascular distribution. No acute intracranial process. Abdomen X-Ray 11/17/24 13:20 IMPRESSION: Likely partial, intermittent bowel obstruction, as detailed above. Chest X-Ray 11/17/24 15:19 IMPRESSION: Tip of the temporary dialysis catheter is at the cavoatrial junction. Lumbar Puncture Fluoroscopy 11/17/24 16:59 IMPRESSION: 1. Successful fluoro-guided lumbar puncture with normal opening pressure of 19 cm water. Labs Labs: Laboratory Tests 11/19/24 04:03 11/19/24 04:03 Calcium 8.2 L Phosphorus 4.5 Magnesium 2.0 Total Bilirubin 0.2 AST 27 ALT 15 Alkaline Phosphatase 115 Total Protein 5.4 L Albumin 2.6 L Microbiology 11/17/24 13:13 Cerebral Spinal Fluid Sterile Body Fluid Culture - Preliminary 11/13/24 14:50 Blood Blood Culture - Final 11/13/24 14:21 Blood Blood Culture - Final
--- NOTE | 2024-11-19 11:14 | WPDGIPROGNO ---
Progress Note: A&P Assessment and Plan (1) SBO (small bowel obstruction): Code(s): K56.609 - Unspecified intestinal obstruction, unspecified as to partial versus complete obstruction Status: Acute Assessment and Plan: on PPN NGT in place, no more dark material less output and no abdominal pain start liquid diet when ok per surgery will follow as needed (2) Metabolic encephalopathy: Code(s): G93.41 - Metabolic encephalopathy Status: Acute Assessment and Plan: he is more alert today (3) Acute renal insufficiency: Code(s): N28.9 - Disorder of kidney and ureter, unspecified Status: Acute Assessment and Plan: requiring dialysis (4) Hydroureteronephrosis: Code(s): N13.30 - Unspecified hydronephrosis Status: Acute (5) Chronic obstructive pulmonary disease: Code(s): J44.9 - Chronic obstructive pulmonary disease, unspecified Status: Acute Subjective Date/time seen: 11/19/24 11:14 Interval history: he is more awake and alert, he knows that is at the hospital with GI issues denies today any abdominal pain, he is thirsty Review of Systems Review of Systems: All systems reviewed & are unremarkable except as noted in HPI and below Exam Const: General: comfortable Other: awake and alert today chronically ill appearing HENMT: Other: NGT in place Eyes: Sclera: sclerae normal Neck: Neck: supple Resp: Effort & Inspection: normal respiratory effort Cardio: Rate: regular rate GI: Inspection: non-distended and obesity GI Palp: Yes Soft to palpation, No Tenderness to palpation present (GI), No Guarding due to palpation present (GI) and No Rebound tenderness present Auscultation: normal bowel sounds Skin: General skin exam: normal color Neuro: Speech: normal speech Other: more alert, pleasant Extrem: General: normal to inspection Objective Data Vital Signs Vital Signs: Vital Signs - 24 hr 11/18/24 11:15 11/18/24 11:33 11/18/24 11:43 Temperature 97.7 F Pulse Rate 61 70 68 Respiratory Rate 16 Blood Pressure 148/66 H 123/61 153/73 H Pulse Oximetry 100 Oxygen Delivery Oxygen Flow Rate 11/18/24 12:00 11/18/24 12:00 11/18/24 12:00 Temperature 98.4 F Pulse Rate 66 61 Respiratory Rate 20 Blood Pressure 144/56 H Pulse Oximetry 98 99 Oxygen Delivery Nasal Cannula Oxygen Flow Rate 2 11/18/24 14:00 11/18/24 16:00 11/18/24 16:00 Temperature 97.6 F Pulse Rate 66 66 Respiratory Rate 22 H Blood Pressure 168/59 H Pulse Oximetry 100 100 Oxygen Delivery Nasal Cannula Oxygen Flow Rate 2 11/18/24 16:00 11/18/24 18:00 11/18/24 19:38 Temperature 98.4 F Pulse Rate 56 L 51 L 53 L Respiratory Rate 18 Blood Pressure 122/49 L Pulse Oximetry 99 Oxygen Delivery Oxygen Flow Rate 11/18/24 20:00 11/18/24 20:00 11/18/24 22:00 Temperature Pulse Rate 53 L 55 L Respiratory Rate Blood Pressure Pulse Oximetry 100 Oxygen Delivery Nasal Cannula Oxygen Flow Rate 2 11/18/24 23:41 11/19/24 00:00 11/19/24 00:00 Temperature 98.4 F Pulse Rate 54 L 52 L Respiratory Rate 21 H Blood Pressure 120/52 L Pulse Oximetry 99 99 Oxygen Delivery Nasal Cannula Oxygen Flow Rate 2 11/19/24 02:00 11/19/24 04:00 11/19/24 04:00 Temperature Pulse Rate 53 L 54 L Respiratory Rate Blood Pressure Pulse Oximetry 99 Oxygen Delivery Nasal Cannula Oxygen Flow Rate 2 11/19/24 04:46 11/19/24 06:00 11/19/24 08:00 Temperature 97.8 F 98.2 F Pulse Rate 47 L 48 L 44 L Respiratory Rate 20 14 Blood Pressure 122/44 L 137/49 L Pulse Oximetry 99 100 Oxygen Delivery Oxygen Flow Rate 11/19/24 08:19 11/19/24 08:20 Temperature Pulse Rate 53 L 53 L Respiratory Rate 14 14 Blood Pressure Pulse Oximetry 98 Oxygen Delivery Nasal Cannula Oxygen Flow Rate 1 Intake/Output Intake/Output: Intake & Output 11/16/24 11/17/24 11/18/24 11/19/24 23:59 23:59 23:59 23:59 Intake Total 1400.0 1000 2256.6 983.3 Output Total 7408 156 7207 1050 Balance 385.0 400 -1243.4 -66.7 Meds/Results Medications: Active Medications Generic Name Dose Route Start Last Admin Trade Name Freq PRN Reason Stop Dose Admin Acetaminophen 650 mg 11/13/24 21:38 Acetaminophen 325 Mg Tablet PO Q8H PRN Pain Rated 1-3 Albuterol 2 puff 11/13/24 21:38 Albuterol Sulfate (*Sp) Aerosol 1 Puff INHALATION Q4H PRN Wheezing Artificial Tears 1 drop 11/13/24 21:58 Artificial Tears Ophth Soln 15 Ml Bottle EACH EYE QID PRN Dry Eye(s) Aspirin 81 mg 11/14/24 09:00 11/19/24 08:24 Aspirin 81 Mg Enteric Tablet PO Not Given DAILY BERNARDO Benzonatate 100 mg 11/13/24 21:38 Benzonatate 100 Mg Capsule PO TID PRN cough Brimonidine Tartrate 1 drop 11/14/24 06:00 11/19/24 06:51 Brimonidine Tartrate 0.2% Op Soln 5 Ml Btl EACH EYE 1 drop Q8HR BERNARDO Administration Brinzolamide 1 drop 11/14/24 06:00 11/19/24 06:51 Brinzolamide 1% Ophth Susp 10 Ml EACH EYE 1 drop Q8HR BERNARDO Administration Cholestyramine Resin 4 gm 11/14/24 10:00 11/19/24 08:27 Cholestyramine (W/ Sugar) 4 Gm Powd.Pack PO Not Given 1000,1300,1800 BERNARDO Dextrose 12.5 gm 11/13/24 21:30 Dextrose 50% 25 Gm/50 Ml Syringe IV PUSH PRN PRN Hypoglycemia Protocol Escitalopram Oxalate 15 mg 11/14/24 09:00 11/19/24 08:24 Escitalopram Oxalate 5 Mg Tablet PO Not Given QAM BERNARDO Fluticasone/Umeclidinium/Vilanterol 1 puff 11/14/24 08:00 11/19/24 08:19 Fluticasone/Umeclidin/Vilanter 100-62.5-25 Mcg Ellipta INHALATION 1 puff DAILYRT BERNARDO Administration Gabapentin 100 mg 11/14/24 09:00 11/19/24 08:27 Gabapentin 100 Mg Capsule PO Not Given TID BERNARDO Glucagon 1 mg 11/13/24 21:30 Glucagon For Inj 1 Mg Vial IM PRN PRN Hypoglycemia Protocol Glucose 15 gm 11/13/24 21:30 Glucose Oral Gel 15 Gm Of Glucse In 37.5 Gm Tube PO PRN PRN Hypoglycemia Protocol Guaifenesin/Dextromethorphan 10 ml 11/13/24 21:38 Guaifenesin/Dextromethorphan 10 Ml Udc PO Q4-6H PRN Cough Heparin Sodium (Porcine) 5,000 units 11/14/24 22:00 11/19/24 06:52 Heparin Sodium 5,000 Units/Ml Vial SUB-Q 5,000 units Q8HR BERNARDO Administration Dextrose 1,000 mls @ 100 mls/hr 11/13/24 21:30 Dextrose 5% 1,000 Ml IVPB PRN PRN Hypoglycemia Protocol Dextrose 1,000 mls @ 50 mls/hr 11/17/24 12:24 Dextrose 10% IV CONT .Q20H PRN if PN is interrupted Amino Acids/Electrolytes/Dextrose 1,000 mls @ 80 mls/hr 11/17/24 13:00 11/19/24 02:30 Clinimix E 4.25%/5% Solution IV CONT 80 mls/hr .[id number] BERNARDO Administration Protocol Fat Emulsion Intravenous 250 mls @ 20.833 mls/hr 11/17/24 13:00 11/19/24 01:36 Lipids 20% IVPB Infused Q24H BERNARDO Infusion Albumin Human 50 mls @ 999 mls/hr 11/18/24 07:10 Albutein IVPB 12/18/24 07:09 Q10M PRN HYPOTENSION Insulin Aspart 3 - 6 units 11/14/24 08:00 11/19/24 08:24 Insulin Aspart (*Bkc) 100 Units/Ml SUB-Q Not Given TIDWM [facility] Protocol Lidocaine 1 patch 11/14/24 09:00 11/19/24 09:59 Lidocaine 5% Patch TOPICAL 1 patch DAILY BERNARDO Administration Loperamide HCl 2 mg 11/13/24 21:38 Loperamide Hcl 2 Mg Capsule PO Q6H PRN Diarrhea Melatonin 5 mg 11/13/24 22:00 11/19/24 08:26 Melatonin 5 Mg Tablet PO Not Given HS [facility] Morphine Sulfate 2 mg 11/17/24 10:55 11/17/24 12:27 Morphine Sulfate (*Crx) 2 Mg/Ml Inj IV PUSH 2 mg ONCE PRN Administration Pain Ondansetron HCl 4 mg 11/13/24 21:38 Ondansetron Hcl Odt 4 Mg Tablet PO Q4H PRN Nausea And Vomiting Oxycodone HCl 5 mg 11/13/24 21:38 Oxycodone Hcl (*Crx) 5 Mg Tab Ir PO QHS PRN Pain Rated 4-6 Pantoprazole Sodium 40 mg 11/17/24 09:00 11/19/24 10:20 Pantoprazole Sodium Iv 40 Mg Vial IV PUSH 40 mg QAM [facility] Administration Psyllium Hydrophilic Mucilloid 1 packet 11/13/24 22:00 Psyllium Sugar Free Powder Packet PO DAILY PRN constipation Rosuvastatin Calcium 40 mg 11/13/24 22:00 11/19/24 08:27 Rosuvastatin 20 Mg Tablet PO Not Given QHS BERNARDO Senna 8.6 mg 11/13/24 21:38 Sennosides 8.6 Mg Tablet PO DAILY PRN Constipation Tamsulosin HCl 0.4 mg 11/14/24 09:00 11/19/24 08:25 Tamsulosin Hcl 0.4 Mg Capsule PO Not Given QAM [facility] Radiology Results: ITS Impressions Chest/Abdomen/Pelvis CT 11/14/24 09:27 IMPRESSION: Bilateral renal calculi. Asymmetric mural thickening of the base of the bladder for which direct visualization is recommended. Findings which may represent partial distal bowel obstruction with significant air distention of the colon just before the anastomotic staple line and distal decompression. Significant gallbladder distention with trace surrounding inflammatory change. Bibasilar atelectasis. Renal Ultrasound 11/14/24 11:43 Impression: No definite abnormality seen. Visualization of the kidneys is somewhat suboptimal related to patient body habitus. Head CT 11/14/24 18:07 IMPRESSION: No acute intracranial findings. 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 Abdomen/Pelvis CT 11/15/24 09:13 IMPRESSION: 1. Bilateral nephrolithiasis with interval advancement of a 3-4 mm at least partially obstructing stone now at the left ureterovesicular junction with mild left hydroureteronephrosis. 2. Likely intermittent/partial small bowel obstruction secondary to a volvulus with at least 360 degrees twist of the distalmost small bowel immediately proximal to ileocolic anastomosis with no interval change in mild dilation of a few loops of more proximal small bowel. 3. Prominent dilation of the gallbladder to 6.5 cm but without evident wall thickening or pericholecystic infiltrate stranding to more specifically suggest acute cholecystitis. Correlate with the right upper quadrant ultrasound or HIDA scan. 4. Very small right and trace left pleural effusions and minimal perihepatic ascites. Abdomen Ultrasound 11/15/24 09:16 IMPRESSION: Fatty infiltration of the liver. Hydropic, fluid-filled gallbladder with dependent stones suspected. Hepatobiliary Scan [facility] 11/15/24 15:34 IMPRESSION: 1. Normal hepatobiliary scan. Brain MRI 11/16/24 14:12 IMPRESSION: 1. No significant change in chronic infarcts, the largest involving the plantar to the right middle cerebral and portions of the anterior cerebral artery vascular distribution. No acute intracranial process. Abdomen X-Ray 11/17/24 13:20 IMPRESSION: Likely partial, intermittent bowel obstruction, as detailed above. Chest X-Ray 11/17/24 15:19 IMPRESSION: Tip of the temporary dialysis catheter is at the cavoatrial junction. Lumbar Puncture Fluoroscopy 11/17/24 16:59 IMPRESSION: 1. Successful fluoro-guided lumbar puncture with normal opening pressure of 19 cm water. Labs Labs: Laboratory Results - last 24 hr 11/17/24 11/18/24 11/18/24 13:13 12:39 16:29 WBC RBC Hgb Hct MCV MCH MCHC RDW Plt Count MPV Immature Gran % (Auto) Neut % (Auto) Lymph % (Auto) [place] % (Auto) Eos % (Auto) Baso % (Auto) Lymph # (Auto) [place] # (Auto) Eos # (Auto) Baso # (Auto) Abs Immat Gran (auto) Absolute Neuts (auto) Absolute Nucleated RBC Nucleated RBC % Sodium Potassium Chloride Carbon Dioxide Anion Gap BUN Creatinine Estim Creat Clear Calc Estimated GFR Glucose POC Capillary Glucose 137 H 140 H Calcium Phosphorus Magnesium Total Bilirubin AST ALT Alkaline Phosphatase Total Protein Albumin Fluid LDH 31 11/18/24 11/19/24 23:54 04:03 WBC 10.1 H RBC 3.42 L Hgb 9.5 L Hct 29.8 L MCV 87.1 MCH 27.8 MCHC 31.9 L RDW 15.7 H Plt Count 197 MPV 8.9 Immature Gran % (Auto) 4.7 H Neut % (Auto) 66.7 Lymph % (Auto) 14.6 L [place] % (Auto) 8.6 H Eos % (Auto) 5.0 H Baso % (Auto) 0.4 Lymph # (Auto) 1.47 [place] # (Auto) 0.9 H Eos # (Auto) 0.5 H Baso # (Auto) 0.0 Abs Immat Gran (auto) 0.47 H Absolute Neuts (auto) 6.7 Absolute Nucleated RBC 0.000 Nucleated RBC % 0.0 Sodium 138 Potassium 3.4 Chloride 104 Carbon Dioxide 25 Anion Gap 9 BUN 52 H D Creatinine 4.13 H Estim Creat Clear Calc 20 Estimated GFR 14 L Glucose 127 H POC Capillary Glucose 114 H Calcium 8.2 L Phosphorus 4.5 Magnesium 2.0 Total Bilirubin 0.2 AST 27 ALT 15 Alkaline Phosphatase 115 Total Protein 5.4 L Albumin 2.6 L Fluid LDH
[2024-11-19] MEDS: NICOTINE (*PBKC) 21 MG PATCH 1 PATCH TRANSDERM (14:18)
[2024-11-19] MEDS: ACETAMINOPHEN 325 MG SUPPOSITORY RECTAL ×2 (14:20→21:20)
[2024-11-19] MEDS: FAT EMULSIONS IV 20% 250 ML 21 ML IVPB (14:21)
--- NOTE | 2024-11-19 14:39 | PM.IMPN ---
Progress Note: A&P Assessment and Plan (1) Acute renal failure: Qualifiers: Acute renal failure type: unspecified Qualified Code(s): N17.9 - Acute kidney failure, unspecified Code(s): N17.9 - Acute kidney failure, unspecified Status: Acute Assessment and Plan: -On dialysis - creatinine 5.43, BUN 61, GFR 11 - baseline: 1.1-1.3 - renal ultrasound unremarkable Cr 4.13, BUN 52 today continue IVF and [place] catheter s/p cystoscopy with left ureteroscopy and stone extraction with bilateral stent Nephrology and Urology following Continue dialysis per nephrology (2) Hypotension: Qualifiers: Hypotension type: hypotension due to hypovolemia Qualified Code(s): E86.1 - Hypovolemia Code(s): I95.9 - Hypotension, unspecified Status: Resolved Assessment and Plan: patient was hypotensive on presentation r/o infection HIDA negative Discontinued Rocephin and Flagyl monitor cultures (3) Type 2 diabetes mellitus: Qualifiers: Diabetes mellitus shelter insulin use: with shelter use Diabetes mellitus complication status: with hypoglycemia Diabetes mellitus complication detail: without coma Qualified Code(s): E11.649 - Type 2 diabetes mellitus with hypoglycemia without coma; 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 Code(s): E11.9 - Type 2 diabetes mellitus without complications Status: Chronic Assessment and Plan: NPO CCI with accucheks and adjust with clinical course (4) Hypertension: Qualifiers: Hypertension type: primary hypertension Qualified Code(s): I10 - Essential (primary) hypertension Code(s): I10 - Essential (primary) hypertension Status: Chronic Assessment and Plan: titrate home meds with clinical course Plan Partial SBO CT AP reviewed NPO, NG tube, on PPN Contrast enema per Gen surgery Gen surgery following monitor Gall bladder distension Rule out Acute cholecystitis CT AP reviewed HIDA scan normal discontinued Rocephin and Metronidazole Blood culture Hydrops Gallbladder US abd reviewed Gen surgery following AMS Likely from uremia, improving with dialysis CT head no acute changes MRI brain, EEG Ammonia <9 LP done, and CSF studies negative for meningitis Neurology eval noted Diet: heart healthy DVT Prophylaxis: Sq Heparin Code Status: DNR Subjective Date/time seen: 11/19/24 14:39 Interval history: Mental status much better since starting dialysis Comfortabel at bedside Review of Systems Review of Systems: All systems reviewed & are unremarkable except as noted in HPI and below Exam Const: General: comfortable and no acute distress Other: Alert and Oriented x2, obese and comfortable HENMT: Face/Nose/Sinus: Normal nares present Mouth: Yes dry mucous membranes Eyes: General: appearance normal, both eyes and all related structures Sclera: sclerae normal Pupils: Equal, round and reactive pupils present EOM: EOMs intact bilaterally Resp: Effort & Inspection: normal respiratory effort Auscultation: clear to auscultation bilaterally Cardio: Rate: regular rate Rhythm: regular rhythm Other: S1-S2 present without murmur, rub, ectopy GI: Other: Abdomen soft, nondistended, nontender. quiet but normoactive bowel sounds in all quadrants. Skin: General skin exam: normal color Other: skin tear to the left upper extremity, Steri-Stripped. No active bleeding. Various areas of ecchymosis to bilateral upper extremities, no particular pattern. In various stages of healing. Neuro: Cranial nerves: Yes Equal, round and reactive pupils present Speech: normal speech Motor exam (neuro): 5/5 motor strength present throughout Sensory Exam: normal sensation Other: A&O x3 Extrem: General: normal to inspection Psych: Mental Status: mental status grossly normal Affect: normal affect Other: fair insight and judgment. Objective Data Vital Signs Vital Signs: Vital Signs - 24 hr 11/18/24 16:00 11/18/24 16:00 11/18/24 16:00 Temperature 97.6 F Pulse Rate 66 56 L Respiratory Rate 22 H Blood Pressure 168/59 H Pulse Oximetry 100 100 Oxygen Delivery Nasal Cannula Oxygen Flow Rate 2 11/18/24 18:00 11/18/24 19:38 11/18/24 20:00 Temperature 98.4 F Pulse Rate 51 L 53 L 53 L Respiratory Rate 18 Blood Pressure 122/49 L Pulse Oximetry 99 Oxygen Delivery Oxygen Flow Rate 11/18/24 20:00 11/18/24 22:00 11/18/24 23:41 Temperature 98.4 F Pulse Rate 55 L 54 L Respiratory Rate 21 H Blood Pressure 120/52 L Pulse Oximetry 100 99 Oxygen Delivery Nasal Cannula Oxygen Flow Rate 2 11/19/24 00:00 11/19/24 00:00 11/19/24 02:00 Temperature Pulse Rate 52 L 53 L Respiratory Rate Blood Pressure Pulse Oximetry 99 Oxygen Delivery Nasal Cannula Oxygen Flow Rate 2 11/19/24 04:00 11/19/24 04:00 11/19/24 04:46 Temperature 97.8 F Pulse Rate 54 L 47 L Respiratory Rate 20 Blood Pressure 122/44 L Pulse Oximetry 99 99 Oxygen Delivery Nasal Cannula Oxygen Flow Rate 2 11/19/24 06:00 11/19/24 08:00 11/19/24 08:19 Temperature 98.2 F Pulse Rate 48 L 44 L 53 L Respiratory Rate 14 14 Blood Pressure 137/49 L Pulse Oximetry 100 Oxygen Delivery Oxygen Flow Rate 11/19/24 08:20 11/19/24 11:37 Temperature 99.0 F Pulse Rate 53 L 51 L Respiratory Rate 14 14 Blood Pressure 135/50 L Pulse Oximetry 98 92 Oxygen Delivery Nasal Cannula Oxygen Flow Rate 1 Intake/Output Intake/Output: Intake & Output 11/16/24 11/17/24 11/18/24 11/19/24 23:59 23:59 23:59 23:59 Intake Total 1400.0 1000 2256.6 983.3 Output Total 8637 837 5847 1050 Balance 385.0 400 -1243.4 -66.7 Meds/Results Medications: Active Medications Generic Name Dose Route Start Last Admin Trade Name Freq PRN Reason Stop Dose Admin Acetaminophen 650 mg 11/13/24 21:38 Acetaminophen 325 Mg Tablet PO Q8H PRN Pain Rated 1-3 Acetaminophen 325 mg 11/19/24 12:11 11/19/24 14:20 Acetaminophen 325 Mg Suppository RECTAL 325 mg Q4H PRN Administration Mild Pain (1-3) or Fever Albuterol 2 puff 11/13/24 21:38 Albuterol Sulfate (*Sp) Aerosol 1 Puff INHALATION Q4H PRN Wheezing Artificial Tears 1 drop 11/13/24 21:58 Artificial Tears Ophth Soln 15 Ml Bottle EACH EYE QID PRN Dry Eye(s) Aspirin 81 mg 11/14/24 09:00 11/19/24 08:24 Aspirin 81 Mg Enteric Tablet PO Not Given DAILY [facility]O Benzonatate 100 mg 11/13/24 21:38 Benzonatate 100 Mg Capsule PO TID PRN cough Brimonidine Tartrate 1 drop 11/14/24 06:00 11/19/24 06:51 Brimonidine Tartrate 0.2% Op Soln 5 Ml Btl EACH EYE 1 drop Q8HR [facility]ARDO Administration Brinzolamide 1 drop 11/14/24 06:00 11/19/24 06:51 Brinzolamide 1% Ophth Susp 10 Ml EACH EYE 1 drop Q8HR [facility] Administration Cholestyramine Resin 4 gm 11/14/24 10:00 11/19/24 08:27 Cholestyramine (W/ Sugar) 4 Gm Powd.Pack PO Not Given 1000,1300,1800 [facility] Dextrose 12.5 gm 11/13/24 21:30 Dextrose 50% 25 Gm/50 Ml Syringe IV PUSH PRN PRN Hypoglycemia Protocol Escitalopram Oxalate 15 mg 11/14/24 09:00 11/19/24 08:24 Escitalopram Oxalate 5 Mg Tablet PO Not Given QAM [facility] Gabapentin 100 mg 11/14/24 09:00 11/19/24 08:27 Gabapentin 100 Mg Capsule PO Not Given TID [facility] Glucagon 1 mg 11/13/24 21:30 Glucagon For Inj 1 Mg Vial IM PRN PRN Hypoglycemia Protocol Glucose 15 gm 11/13/24 21:30 Glucose Oral Gel 15 Gm Of Glucse In 37.5 Gm Tube PO PRN PRN Hypoglycemia Protocol Guaifenesin/Dextromethorphan 10 ml 11/13/24 21:38 Guaifenesin/Dextromethorphan 10 Ml Udc PO Q4-6H PRN Cough Heparin Sodium (Porcine) 5,000 units 11/14/24 22:00 11/19/24 06:52 Heparin Sodium 5,000 Units/Ml Vial SUB-Q 5,000 units Q8HR [facility] Administration Dextrose 1,000 mls @ 100 mls/hr 11/13/24 21:30 Dextrose 5% 1,000 Ml IVPB PRN PRN Hypoglycemia Protocol Dextrose 1,000 mls @ 50 mls/hr 11/17/24 12:24 Dextrose 10% IV CONT .Q20H PRN if PN is interrupted Amino Acids/Electrolytes/Dextrose 1,000 mls @ 80 mls/hr 11/17/24 13:00 11/19/24 02:30 Clinimix E 4.25%/5% Solution IV CONT 80 mls/hr .[id number] [facility] Administration Protocol Fat Emulsion Intravenous 250 mls @ 20.833 mls/hr 11/17/24 13:00 11/19/24 01:36 Lipids 20% IVPB Infused Q24H [facility] Infusion Albumin Human 50 mls @ 999 mls/hr 11/18/24 07:10 Albutein IVPB 12/18/24 07:09 Q10M PRN HYPOTENSION Insulin Aspart 3 - 6 units 11/14/24 08:00 11/19/24 12:24 Insulin Aspart (*Bkc) 100 Units/Ml SUB-Q Not Given TIDWM [facility] Protocol Lidocaine 1 patch 11/14/24 09:00 11/19/24 09:59 Lidocaine 5% Patch TOPICAL 1 patch DAILY [facility] Administration Loperamide HCl 2 mg 11/13/24 21:38 Loperamide Hcl 2 Mg Capsule PO Q6H PRN Diarrhea Melatonin 5 mg 11/13/24 22:00 11/19/24 08:26 Melatonin 5 Mg Tablet PO Not Given HS [facility] Nicotine 1 patch 11/19/24 12:15 11/19/24 14:18 Nicotine (*Pbkc) 21 Mg Patch TRANSDERM 1 patch DAILY [facility] Administration Ondansetron HCl 4 mg 11/13/24 21:38 Ondansetron Hcl Odt 4 Mg Tablet PO Q4H PRN Nausea And Vomiting Oxycodone HCl 5 mg 11/13/24 21:38 Oxycodone Hcl (*Crx) 5 Mg Tab Ir PO QHS PRN Pain Rated 4-6 Pantoprazole Sodium 40 mg 11/17/24 09:00 11/19/24 10:20 Pantoprazole Sodium Iv 40 Mg Vial IV PUSH 40 mg QAM [facility] Administration Psyllium Hydrophilic Mucilloid 1 packet 11/13/24 22:00 Psyllium Sugar Free Powder Packet PO DAILY PRN constipation Rosuvastatin Calcium 40 mg 11/13/24 22:00 11/19/24 08:27 Rosuvastatin 20 Mg Tablet PO Not Given QHS [facility] Fluticasone/Salmeterol 2 puff 11/19/24 20:00 Fluticasone/Salmeterol 45-21 Mcg Inhaler 1 Puff INHALATION Q12HRT [facility] Senna 8.6 mg 11/13/24 21:38 Sennosides 8.6 Mg Tablet PO DAILY PRN Constipation Tamsulosin HCl 0.4 mg 11/14/24 09:00 11/19/24 08:25 Tamsulosin Hcl 0.4 Mg Capsule PO Not Given QAM [facility] Radiology Results: ITS Impressions Chest/Abdomen/Pelvis CT 11/14/24 09:27 IMPRESSION: Bilateral renal calculi. Asymmetric mural thickening of the base of the bladder for which direct visualization is recommended. Findings which may represent partial distal bowel obstruction with significant air distention of the colon just before the anastomotic staple line and distal decompression. Significant gallbladder distention with trace surrounding inflammatory change. Bibasilar atelectasis. Renal Ultrasound 11/14/24 11:43 Impression: No definite abnormality seen. Visualization of the kidneys is somewhat suboptimal related to patient body habitus. Head CT 11/14/24 18:07 IMPRESSION: No acute intracranial findings. 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 Abdomen/Pelvis CT 11/15/24 09:13 IMPRESSION: 1. Bilateral nephrolithiasis with interval advancement of a 3-4 mm at least partially obstructing stone now at the left ureterovesicular junction with mild left hydroureteronephrosis. 2. Likely intermittent/partial small bowel obstruction secondary to a volvulus with at least 360 degrees twist of the distalmost small bowel immediately proximal to ileocolic anastomosis with no interval change in mild dilation of a few loops of more proximal small bowel. 3. Prominent dilation of the gallbladder to 6.5 cm but without evident wall thickening or pericholecystic infiltrate stranding to more specifically suggest acute cholecystitis. Correlate with the right upper quadrant ultrasound or HIDA scan. 4. Very small right and trace left pleural effusions and minimal perihepatic ascites. Abdomen Ultrasound 11/15/24 09:16 IMPRESSION: Fatty infiltration of the liver. Hydropic, fluid-filled gallbladder with dependent stones suspected. Hepatobiliary Scan [facility] 11/15/24 15:34 IMPRESSION: 1. Normal hepatobiliary scan. Brain MRI 11/16/24 14:12 IMPRESSION: 1. No significant change in chronic infarcts, the largest involving the plantar to the right middle cerebral and portions of the anterior cerebral artery vascular distribution. No acute intracranial process. Abdomen X-Ray 11/17/24 13:20 IMPRESSION: Likely partial, intermittent bowel obstruction, as detailed above. Chest X-Ray 11/17/24 15:19 IMPRESSION: Tip of the temporary dialysis catheter is at the cavoatrial junction. Lumbar Puncture Fluoroscopy 11/17/24 16:59 IMPRESSION: 1. Successful fluoro-guided lumbar puncture with normal opening pressure of 19 cm water. Labs Labs: Laboratory Results - last 24 hr 11/17/24 11/18/24 11/18/24 13:13 16:29 23:54 WBC RBC Hgb Hct MCV MCH MCHC RDW Plt Count MPV Immature Gran % (Auto) Neut % (Auto) Lymph % (Auto) [place] % (Auto) Eos % (Auto) Baso % (Auto) Lymph # (Auto) [place] # (Auto) Eos # (Auto) Baso # (Auto) Abs Immat Gran (auto) Absolute Neuts (auto) Absolute Nucleated RBC Nucleated RBC % Sodium Potassium Chloride Carbon Dioxide Anion Gap BUN Creatinine Estim Creat Clear Calc Estimated GFR Glucose POC Capillary Glucose 140 H 114 H Calcium Phosphorus Magnesium Total Bilirubin AST ALT Alkaline Phosphatase Total Protein Albumin Fluid LDH 31 11/19/24 11/19/24 04:03 11:32 WBC 10.1 H RBC 3.42 L Hgb 9.5 L Hct 29.8 L MCV 87.1 MCH 27.8 MCHC 31.9 L RDW 15.7 H Plt Count 197 MPV 8.9 Immature Gran % (Auto) 4.7 H Neut % (Auto) 66.7 Lymph % (Auto) 14.6 L [place] % (Auto) 8.6 H Eos % (Auto) 5.0 H Baso % (Auto) 0.4 Lymph # (Auto) 1.47 [place] # (Auto) 0.9 H Eos # (Auto) 0.5 H Baso # (Auto) 0.0 Abs Immat Gran (auto) 0.47 H Absolute Neuts (auto) 6.7 Absolute Nucleated RBC 0.000 Nucleated RBC % 0.0 Sodium 138 Potassium 3.4 Chloride 104 Carbon Dioxide 25 Anion Gap 9 BUN 52 H D Creatinine 4.13 H Estim Creat Clear Calc 20 Estimated GFR 14 L Glucose 127 H POC Capillary Glucose 146 H Calcium 8.2 L Phosphorus 4.5 Magnesium 2.0 Total Bilirubin 0.2 AST 27 ALT 15 Alkaline Phosphatase 115 Total Protein 5.4 L Albumin 2.6 L Fluid LDH Quality VTE Prophylaxis VTE prophylaxis: mechanical ordered
[2024-11-19] MEDS: FLUTICASONE/SALMETEROL 45-21 MCG INHALER 1 PUFF 2 PUFF INHALATION (20:25)
[2024-11-20] VITALS (16 sets, daily range): BP systolic 105–181; BP diastolic 42–69; PULSE 40–61; RESP 16–20; TEMP 36.4–37; O2SAT 98–100
[2024-11-20] MEDS: MORPHINE SULFATE (*CRX) 2 MG/ML INJ IV PUSH ×4 (00:24→21:24)
[2024-11-20] MEDS: AMINO ACIDS 4.25%/D5W/LYTES/CA 1,000 ML 80 ML IV CONT ×2 (03:14→15:21)
[2024-11-20 05:06] LABS: Hematocrit 31.1 % (42.0-52.0); Hemoglobin 10.0 g/dL (14.0-18.0); Immature Granulocyte Percent A 5.2 % (0-0.5); Lymphocytes Absolute Auto 1.47 K/mm3 (0.9-3.2); Mean Corpuscular HGB Conc 32.2 g/dl (32-36); Mean Corpuscular Hemoglobin 27.9 pg (26-34); Mean Corpuscular Volume 86.9 fl (80-100); Nucleated Red Blood Cells Absolute Auto 0.000 K/mm3 (0.0-0.012); Nucleated Red Blood Cells Perc 0.0 % (0.0-0.2); Platelet Count Result 176 k/mm3 (150-375); Red Blood Count 3.58 M/mm3 (4.6-6.20); White Blood Count 9.8 K/mm3 (4.5-10.0)
[2024-11-20 05:21] LABS: INR 1.1; Prothrombin Time 14.2 Seconds (11.1-14.7)
[2024-11-20 05:22] LABS: Partial Thromboplastin Time 34.2 Seconds (22.3-36.8)
[2024-11-20 05:32] LABS: Alanine Aminotransferase 15 U/L (6-50); Albumin Level 2.8 g/dL (3.5-5.1); Alkaline Phosphatase 107 U/L (38-126); Anion Gap 10 mmol/L (4-12); Aspartate Amino Transferase 25 U/L (17-59); Bilirubin,Total 0.4 mg/dL (0.2-1.3); Blood Urea Nitrogen 67 mg/dL (9-20); Calcium 8.6 mg/dL (8.4-10.2); Carbon Dioxide 24 mmol/L (22-30); Chloride 102 mmol/L (98-107); Estimated CRCL calculation 19 ml/min; Estimated Glomerular Filt Rate 13; Glucose 161 mg/dL (65-110); Magnesium 2.1 mg/dL (1.6-2.3); Potassium 3.4 mmol/L (3.4-5.0); Sodium 136 mmol/L (137-145); Total Protein 5.5 g/dL (6.3-8.2); Triglycerides 175 mg/dL (<150)
[2024-11-20] MEDS: BRIMONIDINE TARTRATE 0.2% OP SOLN 5 ML BTL 1 DROP EACH EYE ×3 (05:34→21:32)
[2024-11-20] MEDS: BRINZOLAMIDE 1% OPHTH SUSP 10 ML 1 DROP EACH EYE ×3 (05:34→21:32)
[2024-11-20 05:36] LABS: Anisocytosis 1+
[2024-11-20 05:37] LABS: Ovalocytes 1+; Schistocytes None Seen
[2024-11-20 06:40] LABS: Transferrin 89 mg/dL (206-381)
[2024-11-20] MEDS: FLUTICASONE/SALMETEROL 45-21 MCG INHALER 1 PUFF 2 PUFF INHALATION ×2 (07:20→20:40)
[2024-11-20] MEDS: NICOTINE (*PBKC) 21 MG PATCH 1 PATCH TRANSDERM (08:12)
[2024-11-20] MEDS: PANTOPRAZOLE SODIUM IV 40 MG VIAL IV PUSH (08:12)
[2024-11-20] MEDS: LIDOCAINE 5% PATCH 1 PATCH TOPICAL (08:12)
--- NOTE | 2024-11-20 10:16 | P.PNNP_ITS ---
Progress Note: A&P Assessment and Plan (1) Acute kidney injury: Code(s): N17.9 - Acute kidney failure, unspecified Status: Acute Assessment and Plan: * as noted by admission labs * baseline creatinine seems to run ~ 1.1 - 1.3mg/dl * creatinine 1.13mg/dl in July 2024 * suspect multifactorial etiology: * prerenal factors * hypotension/hemodynamic instability * urinary retention/obstruction * infection (gallbladder?) * other(?) * evaluation to date noted: * urine electrolytes prerenal * rare urine eosinophils -- possible AIN? (however, no rash or peripheral eosinophilia) * CPK mildly elevated (but not enough to affect kidney function) * mild proteinuria * UA without evidence of infection * renal ultrasound negative (but limited due to body habitus) * HD on 11/17 and 11/18 * hold HD today * follow trend of repeat labs and UOP for potential recovery (2) Altered mental status: Code(s): R41.82 - Altered mental status, unspecified Status: Acute Assessment and Plan: * improvement noted if not resolving * as noted since 11/15 * etiology?? -- related to renal failure?? * Neurology recommendations noted * MRI of brain noted * s/p lumbar puncture - follow-up on pending tests * follow mentation (3) SBO (small bowel obstruction): Code(s): K56.609 - Unspecified intestinal obstruction, unspecified as to partial versus complete obstruction Status: Acute Assessment and Plan: * admission CT demonstrated findings which may represent partial distal bowel obstruction with significant air distention of the colon just before the and anastomotic staple line and distal decompression * repeat CT scan noted as well * NG tube in place * Surgery following with recommendations noted * PPN for nutritional support * follow repeat imaging * continue supportive therapy (4) Dilated gallbladder: Code(s): K82.8 - Other specified diseases of gallbladder Status: Acute Assessment and Plan: * admission CT demonstrated significant gallbladder distention with trace surrounding inflammatory change * repeat CT scan noted as well * normal LFTs * abdominal exam positive for diffuse tenderness to palpation (but unreliable given AMS) * no nausea or vomiting * Surgery following - poor surgical candidate if intervention needed... (5) Bilateral nephrolithiasis: Code(s): N20.0 - Calculus of kidney Status: Acute Assessment and Plan: * admission and repeat CT scan noted/reviewed * Urology recommendations noted * s/p cystoscopy, stone extraction, bilateral ureteral stent placement (on 11/16) * continue supportive therapy (6) Anemia: Code(s): D64.9 - Anemia, unspecified Status: Acute Assessment and Plan: * related to BRYCE and acute illness * Epogen with HD if needed * follow trend of H/H (7) Hypertension: Qualifiers: Hypertension type: primary hypertension Qualified Code(s): I10 - Essential (primary) hypertension Code(s): I10 - Essential (primary) hypertension Status: Chronic Assessment and Plan: * slowly resume home BP medications * initially hypotensive on admission * follow trend of hemodynamics (8) Type 2 diabetes mellitus: Qualifiers: 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 L Subjective Date/time seen: 11/20/24 10:16 Interval history: Follow-up for acute kidney injury/acute renal failure. Attempted dialysis treatment today but his temporary HD catheter is non- functional; however, increased urine output noted in the last 24 - 48 hours; mentation seems stable if not better -- states that he is hungry and requested some crackers; no other issues/events overnight or earlier this morning. Exam 2 Narrative: General: large but ill-appearing male in NAD Heart: normal S1 and S2; no rub Lungs: clear anteriorly Abdomen: obese with positive bowel sounds Extremities: no cyanosis or clubbing; trace edema Skin: warm and intact Objective Data Vital Signs Vital Signs: Vital Signs Temp Pulse Resp BP Pulse Ox O2 Del Method O2 Flow Rate 11/20/24 10:00 52 L 11/20/24 09:00 58 L 105/42 L 11/20/24 08:45 59 L 105/58 L 11/20/24 08:30 60 124/56 L 11/20/24 08:18 60 127/57 L 11/20/24 08:10 2 11/20/24 08:07 98.1 F 61 16 125/57 L 100 11/20/24 08:00 58 L 11/20/24 08:00 Room Air 11/20/24 08:00 97.5 F L 48 L 20 165/57 H 99 11/20/24 06:00 44 L 11/20/24 04:00 45 L 11/20/24 04:00 45 L 20 100 Nasal Cannula 1 11/20/24 03:48 98.6 F 47 L 20 156/54 H 100 11/20/24 01:07 40 L 11/19/24 23:52 42 L 11/19/24 23:52 42 L 18 100 Nasal Cannula 1 11/19/24 23:31 97.8 F 50 L 18 122/49 L 100 11/19/24 22:00 42 L 11/19/24 20:33 99 Nasal Cannula 1 11/19/24 20:25 45 L 16 11/19/24 20:00 59 L 11/19/24 20:00 59 L 16 99 Nasal Cannula 1 11/19/24 19:56 98.6 F 55 L 18 161/58 H 100 Intake/Output Intake/Output: Intake & Output 11/17/24 11/18/24 11/19/24 11/20/24 23:59 23:59 23:59 23:59 Intake Total 1000 2256.6 1931.3 3609.3 Output Total 600 3500 1800 1825 Balance 400 -1243.4 131.3 1784.3 Meds/Results Medications: Active Medications Generic Name Dose Route Start Last Admin Trade Name Freq PRN Reason Stop Dose Admin Acetaminophen 650 mg 11/13/24 21:38 Acetaminophen 325 Mg Tablet PO Q8H PRN Pain Rated 1-3 Acetaminophen 325 mg 11/19/24 12:11 11/19/24 21:20 Acetaminophen 325 Mg Suppository RECTAL 325 mg Q4H PRN Administration Mild Pain (1-3) or Fever Albuterol 2 puff 11/13/24 21:38 Albuterol Sulfate (*Sp) Aerosol 1 Puff INHALATION Q4H PRN Wheezing Artificial Tears 1 drop 11/13/24 21:58 Artificial Tears Ophth Soln 15 Ml Bottle EACH EYE QID PRN Dry Eye(s) Aspirin 81 mg 11/14/24 09:00 11/19/24 08:24 Aspirin 81 Mg Enteric Tablet PO Not Given DAILY BERNARDO Benzonatate 100 mg 11/13/24 21:38 Benzonatate 100 Mg Capsule PO TID PRN cough Brimonidine Tartrate 1 drop 11/14/24 06:00 11/20/24 15:28 Brimonidine Tartrate 0.2% Op Soln 5 Ml Btl EACH EYE 1 drop Q8HR BERNARDO Administration Brinzolamide 1 drop 11/14/24 06:00 11/20/24 15:28 Brinzolamide 1% Ophth Susp 10 Ml EACH EYE 1 drop Q8HR BERNARDO Administration Cholestyramine Resin 4 gm 11/14/24 10:00 11/19/24 08:27 Cholestyramine (W/ Sugar) 4 Gm Powd.Pack PO Not Given 1000,1300,1800 [facility] Dextrose 12.5 gm 11/13/24 21:30 Dextrose 50% 25 Gm/50 Ml Syringe IV PUSH PRN PRN Hypoglycemia Protocol Escitalopram Oxalate 15 mg 11/14/24 09:00 11/19/24 08:24 Escitalopram Oxalate 5 Mg Tablet PO Not Given QAM [facility] Gabapentin 100 mg 11/14/24 09:00 11/19/24 08:27 Gabapentin 100 Mg Capsule PO Not Given TID BERNARDO Glucagon 1 mg 11/13/24 21:30 Glucagon For Inj 1 Mg Vial IM PRN PRN Hypoglycemia Protocol Glucose 15 gm 11/13/24 21:30 Glucose Oral Gel 15 Gm Of Glucse In 37.5 Gm Tube PO PRN PRN Hypoglycemia Protocol Guaifenesin/Dextromethorphan 10 ml 11/13/24 21:38 Guaifenesin/Dextromethorphan 10 Ml Udc PO Q4-6H PRN Cough Heparin Sodium (Porcine) 5,000 units 11/14/24 22:00 11/20/24 15:23 Heparin Sodium 5,000 Units/Ml Vial SUB-Q 5,000 units Q8HR BERNARDO Administration Dextrose 1,000 mls @ 100 mls/hr 11/13/24 21:30 Dextrose 5% 1,000 Ml IVPB PRN PRN Hypoglycemia Protocol Dextrose 1,000 mls @ 50 mls/hr 11/17/24 12:24 Dextrose 10% IV CONT .Q20H PRN if PN is interrupted Amino Acids/Electrolytes/Dextrose 1,000 mls @ 80 mls/hr 11/17/24 13:00 11/20/24 15:21 Clinimix E 4.25%/5% Solution IV CONT 80 mls/hr .[id number] BERNARDO Administration Protocol Fat Emulsion Intravenous 250 mls @ 20.833 mls/hr 11/17/24 13:00 11/20/24 15:22 Lipids 20% IVPB 21 mls/hr Q24H BERNARDO Administration Albumin Human 50 mls @ 999 mls/hr 11/18/24 07:10 Albutein IVPB 12/18/24 07:09 Q10M PRN HYPOTENSION Insulin Aspart 3 - 6 units 11/14/24 08:00 11/20/24 17:40 Insulin Aspart (*Bkc) 100 Units/Ml SUB-Q Not Given TIDWM [facility] Protocol Lidocaine 1 patch 11/14/24 09:00 11/20/24 08:12 Lidocaine 5% Patch TOPICAL 1 patch DAILY BERNARDO Administration Loperamide HCl 2 mg 11/13/24 21:38 Loperamide Hcl 2 Mg Capsule PO Q6H PRN Diarrhea Melatonin 5 mg 11/13/24 22:00 11/19/24 08:26 Melatonin 5 Mg Tablet PO Not Given HS [facility] Miscellaneous Information 1 each 11/20/24 00:01 Please Renew Clinimix. Per [employer] Procedure, It Will Discontinue If Not Renewed XX 12/20/24 00:00 CLARIFY BERNARDO Morphine Sulfate 2 mg 11/20/24 00:03 11/20/24 08:35 Morphine Sulfate (*Crx) 2 Mg/Ml Inj IV PUSH 2 mg Q4H PRN Administration Pain Rated 7-10 Nicotine 1 patch 11/19/24 12:15 11/20/24 08:12 Nicotine (*Pbkc) 21 Mg Patch TRANSDERM 1 patch DAILY BERNARDO Administration Ondansetron HCl 4 mg 11/13/24 21:38 Ondansetron Hcl Odt 4 Mg Tablet PO Q4H PRN Nausea And Vomiting Oxycodone HCl 5 mg 11/13/24 21:38 Oxycodone Hcl (*Crx) 5 Mg Tab Ir PO QHS PRN Pain Rated 4-6 Pantoprazole Sodium 40 mg 11/17/24 09:00 11/20/24 08:12 Pantoprazole Sodium Iv 40 Mg Vial IV PUSH 40 mg QAM BERNARDO Administration Psyllium Hydrophilic Mucilloid 1 packet 11/13/24 22:00 Psyllium Sugar Free Powder Packet PO DAILY PRN constipation Rosuvastatin Calcium 40 mg 11/13/24 22:00 11/19/24 08:27 Rosuvastatin 20 Mg Tablet PO Not Given QHS [facility] Fluticasone/Salmeterol 2 puff 11/19/24 20:00 11/20/24 07:20 Fluticasone/Salmeterol 45-21 Mcg Inhaler 1 Puff INHALATION 2 puff Q12HRT [facility] Administration Senna 8.6 mg 11/13/24 21:38 Sennosides 8.6 Mg Tablet PO DAILY PRN Constipation Tamsulosin HCl 0.4 mg 11/14/24 09:00 11/19/24 08:25 Tamsulosin Hcl 0.4 Mg Capsule PO Not [facility] Results: ITS Impressions Chest/Abdomen/Pelvis CT 11/14/24 09:27 IMPRESSION: Bilateral renal calculi. Asymmetric mural thickening of the base of the bladder for which direct visualization is recommended. Findings which may represent partial distal bowel obstruction with significant air distention of the colon just before the anastomotic staple line and distal decompression. Significant gallbladder distention with trace surrounding inflammatory change. Bibasilar atelectasis. Renal Ultrasound 11/14/24 11:43 Impression: No definite abnormality seen. Visualization of the kidneys is somewhat suboptimal related to patient body habitus. Head CT 11/14/24 18:07 IMPRESSION: No acute intracranial findings. 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 Abdomen/Pelvis CT 11/15/24 09:13 IMPRESSION: 1. Bilateral nephrolithiasis with interval advancement of a 3-4 mm at least partially obstructing stone now at the left ureterovesicular junction with mild left hydroureteronephrosis. 2. Likely intermittent/partial small bowel obstruction secondary to a volvulus with at least 360 degrees twist of the distalmost small bowel immediately proximal to ileocolic anastomosis with no interval change in mild dilation of a few loops of more proximal small bowel. 3. Prominent dilation of the gallbladder to 6.5 cm but without evident wall thickening or pericholecystic infiltrate stranding to more specifically suggest acute cholecystitis. Correlate with the right upper quadrant ultrasound or HIDA scan. 4. Very small right and trace left pleural effusions and minimal perihepatic ascites. Abdomen Ultrasound 11/15/24 09:16 IMPRESSION: Fatty infiltration of the liver. Hydropic, fluid-filled gallbladder with dependent stones suspected. Hepatobiliary Scan Nuclear Medicine 11/15/24 15:34 IMPRESSION: 1. Normal hepatobiliary scan. Brain MRI 11/16/24 14:12 IMPRESSION: 1. No significant change in chronic infarcts, the largest involving the plantar to the right middle cerebral and portions of the anterior cerebral artery vascular distribution. No acute intracranial process. Chest X-Ray 11/17/24 15:19 IMPRESSION: Tip of the temporary dialysis catheter is at the cavoatrial junction. Lumbar Puncture Fluoroscopy 11/17/24 16:59 IMPRESSION: 1. Successful fluoro-guided lumbar puncture with normal opening pressure of 19 cm water. Abdomen X-Ray 11/20/24 14:45 IMPRESSION: Distended bowel loops which may indicate obstruction. Follow-up advised. Bilateral double-J stents. Labs Labs: Laboratory Tests 11/20/24 04:30 11/20/24 04:30 Calcium 8.6 Phosphorus 5.2 H Magnesium 2.1 Transferrin 89 L Total Bilirubin 0.4 AST 25 ALT 15 Alkaline Phosphatase 107 Total Protein 5.5 L Albumin 2.8 L Triglycerides 175 H Microbiology 11/17/24 13:13 Cerebral Spinal Fluid Sterile Body Fluid Culture - Preliminary
--- NOTE | 2024-11-20 10:35 | PC.NURSE ---
Pt unable to receive dialysis. RN unable to use temporary dialysis access. Dr. Gonzalez and Dr. Molina aware
--- NOTE | 2024-11-20 11:29 | PM.PNGS ---
Progress Note: A&P Assessment and Plan (1) SBO (small bowel obstruction): Code(s): K56.609 - Unspecified intestinal obstruction, unspecified as to partial versus complete obstruction Status: Acute Assessment and Plan: Patient is feeling much improved today and states that he is hungry. Physical exam benign. Two bowel movements yesterday. NG with 700 mL output yesterday. KUB ordered to assess bowel obstruction. Will consider NG tube removal based on imaging. Continue PPN and NG suction. (2) Acute renal failure: Qualifiers: Acute renal failure type: unspecified Qualified Code(s): N17.9 - Acute kidney failure, unspecified Code(s): N17.9 - Acute kidney failure, unspecified Status: Acute Assessment and Plan: continue hemodialysis through temporary dialysis catheter, seems to be more alert today with mental status improved. Plan Discussed patient's case and plan of care with Dr. Daniel. Subjective Subjective Date/Time Seen: 11/20/24 11:29 Patient reports: no new complaints Interval history: Patient is doing well today. Two bowel movements yesterday. Mental status is much improved from when last seen on Wednesday. NG tube on low intermittent suction. Patient eager to get NG tube out. He sometimes has nausea but accredits this to being very hungry. Patient notes that there was an issue with his temporary dialysis catheter this morning that the dialysis team is working to resolve. Exam GI: Inspection: normal to inspection, distended, obesity and scar (midline extraction scar, likely from previous colon resection) Auscultation: abnormal bowel sounds (hypoactive) Rectal Exam: deferred Objective Data Vital Signs Vital Signs: Vital Signs - 24 hr 11/19/24 11:37 11/19/24 12:00 11/19/24 14:00 Temperature 99.0 F Pulse Rate 51 L 42 L 41 L Respiratory Rate 14 Blood Pressure 135/50 L Pulse Oximetry 92 Oxygen Delivery Oxygen Flow Rate Fraction of Inspired Oxygen 11/19/24 15:24 11/19/24 16:00 11/19/24 18:00 Temperature 98.3 F Pulse Rate 45 L 43 L 39 L Respiratory Rate 18 Blood Pressure 140/50 L Pulse Oximetry 97 Oxygen Delivery Oxygen Flow Rate Fraction of Inspired Oxygen 11/19/24 19:56 11/19/24 20:00 11/19/24 20:00 Temperature 98.6 F Pulse Rate 55 L 59 L 59 L Respiratory Rate 18 16 Blood Pressure 161/58 H Pulse Oximetry 100 99 Oxygen Delivery Nasal Cannula Oxygen Flow Rate 1 Fraction of Inspired Oxygen 11/19/24 20:25 11/19/24 20:33 11/19/24 22:00 Temperature Pulse Rate 45 L 42 L Respiratory Rate 16 Blood Pressure Pulse Oximetry 99 Oxygen Delivery Nasal Cannula Oxygen Flow Rate 1 Fraction of Inspired Oxygen 11/19/24 23:31 11/19/24 23:52 11/19/24 23:52 Temperature 97.8 F Pulse Rate 50 L 42 L 42 L Respiratory Rate 18 18 Blood Pressure 122/49 L Pulse Oximetry 100 100 Oxygen Delivery Nasal Cannula Oxygen Flow Rate 1 Fraction of Inspired Oxygen 11/20/24 01:07 11/20/24 03:48 11/20/24 04:00 Temperature 98.6 F Pulse Rate 40 L 47 L 45 L Respiratory Rate 20 20 Blood Pressure 156/54 H Pulse Oximetry 100 100 Oxygen Delivery Nasal Cannula Oxygen Flow Rate 1 Fraction of Inspired Oxygen 32 11/20/24 04:00 11/20/24 06:00 11/20/24 08:00 Temperature 97.5 F L Pulse Rate 45 L 44 L 48 L Respiratory Rate 20 Blood Pressure 165/57 H Pulse Oximetry 99 Oxygen Delivery Oxygen Flow Rate Fraction of Inspired Oxygen 11/20/24 08:00 11/20/24 08:00 11/20/24 08:07 Temperature 98.1 F Pulse Rate 58 L 61 Respiratory Rate 16 Blood Pressure 125/57 L Pulse Oximetry 100 Oxygen Delivery Room Air Oxygen Flow Rate Fraction of Inspired Oxygen 11/20/24 08:10 11/20/24 08:18 11/20/24 08:30 Temperature Pulse Rate 60 60 Respiratory Rate Blood Pressure 127/57 L 124/56 L Pulse Oximetry Oxygen Delivery Oxygen Flow Rate 2 Fraction of Inspired Oxygen 11/20/24 08:45 11/20/24 09:00 11/20/24 10:00 Temperature Pulse Rate 59 L 58 L 52 L Respiratory Rate Blood Pressure 105/58 L 105/42 L Pulse Oximetry Oxygen Delivery Oxygen Flow Rate Fraction of Inspired Oxygen Intake/Output Intake/Output: Intake & Output 11/17/24 11/18/24 11/19/24 11/20/24 23:59 23:59 23:59 23:59 Intake Total 1000 2256.6 1931.3 1250 Output Total 600 3500 1800 600 Balance 400 -1243.4 131.3 650 Meds/Results Medications: Active Medications Generic Name Dose Route Start Last Admin Trade Name Freq PRN Reason Stop Dose Admin Acetaminophen 650 mg 11/13/24 21:38 Acetaminophen 325 Mg Tablet PO Q8H PRN Pain Rated 1-3 Acetaminophen 325 mg 11/19/24 12:11 11/19/24 21:20 Acetaminophen 325 Mg Suppository RECTAL 325 mg Q4H PRN Administration Mild Pain (1-3) or Fever Albuterol 2 puff 11/13/24 21:38 Albuterol Sulfate (*Sp) Aerosol 1 Puff INHALATION Q4H PRN Wheezing Artificial Tears 1 drop 11/13/24 21:58 Artificial Tears Ophth Soln 15 Ml Bottle EACH EYE QID PRN Dry Eye(s) Aspirin 81 mg 11/14/24 09:00 11/19/24 08:24 Aspirin 81 Mg Enteric Tablet PO Not Given DAILY BERNARDO Benzonatate 100 mg 11/13/24 21:38 Benzonatate 100 Mg Capsule PO TID PRN cough Brimonidine Tartrate 1 drop 11/14/24 06:00 11/20/24 05:34 Brimonidine Tartrate 0.2% Op Soln 5 Ml Btl EACH EYE 1 drop Q8HR BERNARDO Administration Brinzolamide 1 drop 11/14/24 06:00 11/20/24 05:34 Brinzolamide 1% Ophth Susp 10 Ml EACH EYE 1 drop Q8HR BERNARDO Administration Cholestyramine Resin 4 gm 11/14/24 10:00 11/19/24 08:27 Cholestyramine (W/ Sugar) 4 Gm Powd.Pack PO Not Given 1000,1300,1800 BERNARDO Dextrose 12.5 gm 11/13/24 21:30 Dextrose 50% 25 Gm/50 Ml Syringe IV PUSH PRN PRN Hypoglycemia Protocol Escitalopram Oxalate 15 mg 11/14/24 09:00 11/19/24 08:24 Escitalopram Oxalate 5 Mg Tablet PO Not Given QAM BERNARDO Gabapentin 100 mg 11/14/24 09:00 11/19/24 08:27 Gabapentin 100 Mg Capsule PO Not Given TID BERNARDO Glucagon 1 mg 11/13/24 21:30 Glucagon For Inj 1 Mg Vial IM PRN PRN Hypoglycemia Protocol Glucose 15 gm 11/13/24 21:30 Glucose Oral Gel 15 Gm Of Glucse In 37.5 Gm Tube PO PRN PRN Hypoglycemia Protocol Guaifenesin/Dextromethorphan 10 ml 11/13/24 21:38 Guaifenesin/Dextromethorphan 10 Ml Udc PO Q4-6H PRN Cough Heparin Sodium (Porcine) 5,000 units 11/14/24 22:00 11/20/24 05:34 Heparin Sodium 5,000 Units/Ml Vial SUB-Q 5,000 units Q8HR BERNARDO Administration Dextrose 1,000 mls @ 100 mls/hr 11/13/24 21:30 Dextrose 5% 1,000 Ml IVPB PRN PRN Hypoglycemia Protocol Dextrose 1,000 mls @ 50 mls/hr 11/17/24 12:24 Dextrose 10% IV CONT .Q20H PRN if PN is interrupted Amino Acids/Electrolytes/Dextrose 1,000 mls @ 80 mls/hr 11/17/24 13:00 11/20/24 03:14 Clinimix E 4.25%/5% Solution IV CONT 80 mls/hr .[id number] BERNARDO Administration Protocol Fat Emulsion Intravenous 250 mls @ 20.833 mls/hr 11/17/24 13:00 11/20/24 02:18 Lipids 20% IVPB Infused Q24H BERNARDO Infusion Albumin Human 50 mls @ 999 mls/hr 11/18/24 07:10 Albutein IVPB 12/18/24 07:09 Q10M PRN HYPOTENSION Insulin Aspart 3 - 6 units 11/14/24 08:00 11/20/24 08:11 Insulin Aspart (*Bkc) 100 Units/Ml SUB-Q Not Given TIDWM BERNARDO Protocol Lidocaine 1 patch 11/14/24 09:00 11/20/24 08:12 Lidocaine 5% Patch TOPICAL 1 patch DAILY BERNARDO Administration Loperamide HCl 2 mg 11/13/24 21:38 Loperamide Hcl 2 Mg Capsule PO Q6H PRN Diarrhea Melatonin 5 mg 11/13/24 22:00 11/19/24 08:26 Melatonin 5 Mg Tablet PO Not Given HS BERNARDO Miscellaneous Information 1 each 11/20/24 00:01 Please Renew Clinimix. Per [employer] Procedure, It Will Discontinue If Not Renewed XX 12/20/24 00:00 CLARIFY BERNARDO Morphine Sulfate 2 mg 11/20/24 00:03 11/20/24 08:35 Morphine Sulfate (*Crx) 2 Mg/Ml Inj IV PUSH 2 mg Q4H PRN Administration Pain Rated 7-10 Nicotine 1 patch 11/19/24 12:15 11/20/24 08:12 Nicotine (*Pbkc) 21 Mg Patch TRANSDERM 1 patch DAILY BERNARDO Administration Ondansetron HCl 4 mg 11/13/24 21:38 Ondansetron Hcl Odt 4 Mg Tablet PO Q4H PRN Nausea And Vomiting Oxycodone HCl 5 mg 11/13/24 21:38 Oxycodone Hcl (*Crx) 5 Mg Tab Ir PO QHS PRN Pain Rated 4-6 Pantoprazole Sodium 40 mg 11/17/24 09:00 11/20/24 08:12 Pantoprazole Sodium Iv 40 Mg Vial IV PUSH 40 mg QAM [facility] Administration Psyllium Hydrophilic Mucilloid 1 packet 11/13/24 22:00 Psyllium Sugar Free Powder Packet PO DAILY PRN constipation Rosuvastatin Calcium 40 mg 11/13/24 22:00 11/19/24 08:27 Rosuvastatin 20 Mg Tablet PO Not Given QHS [facility] Fluticasone/Salmeterol 2 puff 11/19/24 20:00 11/20/24 07:20 Fluticasone/Salmeterol 45-21 Mcg Inhaler 1 Puff INHALATION 2 puff Q12HRT [facility] Administration Senna 8.6 mg 11/13/24 21:38 Sennosides 8.6 Mg Tablet PO DAILY PRN Constipation Tamsulosin HCl 0.4 mg 11/14/24 09:00 11/19/24 08:25 Tamsulosin Hcl 0.4 Mg Capsule PO Not Given QAM [facility] Radiology Results: ITS Impressions Chest/Abdomen/Pelvis CT 11/14/24 09:27 IMPRESSION: Bilateral renal calculi. Asymmetric mural thickening of the base of the bladder for which direct visualization is recommended. Findings which may represent partial distal bowel obstruction with significant air distention of the colon just before the anastomotic staple line and distal decompression. Significant gallbladder distention with trace surrounding inflammatory change. Bibasilar atelectasis. Renal Ultrasound 11/14/24 11:43 Impression: No definite abnormality seen. Visualization of the kidneys is somewhat suboptimal related to patient body habitus. Head CT 11/14/24 18:07 IMPRESSION: No acute intracranial findings. 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 Abdomen/Pelvis CT 11/15/24 09:13 IMPRESSION: 1. Bilateral nephrolithiasis with interval advancement of a 3-4 mm at least partially obstructing stone now at the left ureterovesicular junction with mild left hydroureteronephrosis. 2. Likely intermittent/partial small bowel obstruction secondary to a volvulus with at least 360 degrees twist of the distalmost small bowel immediately proximal to ileocolic anastomosis with no interval change in mild dilation of a few loops of more proximal small bowel. 3. Prominent dilation of the gallbladder to 6.5 cm but without evident wall thickening or pericholecystic infiltrate stranding to more specifically suggest acute cholecystitis. Correlate with the right upper quadrant ultrasound or HIDA scan. 4. Very small right and trace left pleural effusions and minimal perihepatic ascites. Abdomen Ultrasound 11/15/24 09:16 IMPRESSION: Fatty infiltration of the liver. Hydropic, fluid-filled gallbladder with dependent stones suspected. Hepatobiliary Scan Nuclear Medicine 11/15/24 15:34 IMPRESSION: 1. Normal hepatobiliary scan. Brain MRI 11/16/24 14:12 IMPRESSION: 1. No significant change in chronic infarcts, the largest involving the plantar to the right middle cerebral and portions of the anterior cerebral artery vascular distribution. No acute intracranial process. Abdomen X-Ray 11/17/24 13:20 IMPRESSION: Likely partial, intermittent bowel obstruction, as detailed above. Chest X-Ray 11/17/24 15:19 IMPRESSION: Tip of the temporary dialysis catheter is at the cavoatrial junction. Lumbar Puncture Fluoroscopy 11/17/24 16:59 IMPRESSION: 1. Successful fluoro-guided lumbar puncture with normal opening pressure of 19 cm water. Labs Labs: Laboratory Results - last 24 hr 11/17/24 11/19/24 11/19/24 13:13 11:32 18:40 WBC RBC Hgb Hct MCV MCH MCHC RDW Plt Count MPV Immature Gran % (Auto) Neut % (Auto) Lymph % (Auto) [place] % (Auto) Eos % (Auto) Baso % (Auto) Lymph # (Auto) [place] # (Auto) Eos # (Auto) Baso # (Auto) Abs Immat Gran (auto) Absolute Neuts (auto) Absolute Nucleated RBC Band Neutrophils % Nucleated RBC % Platelet Estimate Anisocytosis Ovalocytes Schistocytes PT INR APTT Sodium Potassium Chloride Carbon Dioxide Anion Gap BUN Creatinine Estim Creat Clear Calc Estimated GFR Glucose POC Capillary Glucose 146 H 174 H Calcium Phosphorus Magnesium Transferrin Total Bilirubin AST ALT Alkaline Phosphatase Total Protein Albumin Triglycerides Miscellaneous Test Comment 11/19/24 11/20/24 11/20/24 23:37 04:30 08:08 WBC 9.8 RBC 3.58 L Hgb 10.0 L Hct 31.1 L MCV 86.9 MCH 27.9 MCHC 32.2 RDW 15.0 H Plt Count 176 MPV 8.7 Immature Gran % (Auto) 5.2 H Neut % (Auto) 66.4 Lymph % (Auto) 14.9 L [place] % (Auto) 6.7 Eos % (Auto) 6.1 H Baso % (Auto) 0.7 Lymph # (Auto) 1.47 [place] # (Auto) 0.7 H Eos # (Auto) 0.6 H Baso # (Auto) 0.1 Abs Immat Gran (auto) 0.51 H Absolute Neuts (auto) 6.5 Absolute Nucleated RBC 0.000 Band Neutrophils % Not Reportable Nucleated RBC % 0.0 Platelet Estimate Adequate Anisocytosis 1+ Ovalocytes 1+ Schistocytes None seen PT 14.2 INR 1.1 APTT 34.2 Sodium 136 L Potassium 3.4 Chloride 102 Carbon Dioxide 24 Anion Gap 10 BUN 67 H D Creatinine 4.39 H Estim Creat Clear Calc 19 Estimated GFR 13 L Glucose 161 H POC Capillary Glucose 164 H 143 H Calcium 8.6 Phosphorus 5.2 H Magnesium 2.1 Transferrin 89 L Total Bilirubin 0.4 AST 25 ALT 15 Alkaline Phosphatase 107 Total Protein 5.5 L Albumin 2.8 L Triglycerides 175 H Miscellaneous Test
--- NOTE | 2024-11-20 14:15 | PM.IMPN ---
Progress Note: A&P Assessment and Plan (1) Acute renal failure: Qualifiers: Acute renal failure type: unspecified Qualified Code(s): N17.9 - Acute kidney failure, unspecified Code(s): N17.9 - Acute kidney failure, unspecified Status: Acute Assessment and Plan: -On dialysis - creatinine 5.43, BUN 61, GFR 11 - baseline: 1.1-1.3 - renal ultrasound unremarkable Cr 4.39, BUN 67 today continue IVF and [place] catheter s/p cystoscopy with left ureteroscopy and stone extraction with bilateral stent Nephrology and Urology following Continue dialysis per nephrology (2) Hypotension: Qualifiers: Hypotension type: hypotension due to hypovolemia Qualified Code(s): E86.1 - Hypovolemia Code(s): I95.9 - Hypotension, unspecified Status: Resolved Assessment and Plan: resolved (3) Type 2 diabetes mellitus: Qualifiers: Diabetes mellitus rodent exterminator insulin use: with rodent exterminator use Diabetes mellitus complication status: with hypoglycemia Diabetes mellitus complication detail: without coma Qualified Code(s): E11.649 - Type 2 diabetes mellitus with hypoglycemia without coma; Z79.4 - group home (current) use of insulin Code(s): E11.9 - Type 2 diabetes mellitus without complications Status: Chronic Assessment and Plan: NPO CCI with accucheks and adjust with clinical course (4) Hypertension: Qualifiers: Hypertension type: primary hypertension Qualified Code(s): I10 - Essential (primary) hypertension Code(s): I10 - Essential (primary) hypertension Status: Chronic Assessment and Plan: titrate home meds with clinical course Plan Partial SBO CT AP reviewed NPO, NG tube, on PPN Contrast enema per Gen surgery Gen surgery following monitor Gall bladder distension Rule out Acute cholecystitis CT AP reviewed HIDA scan normal discontinued Rocephin and Metronidazole Blood culture Hydrops Gallbladder US abd reviewed Gen surgery following AMS, resolved from uremia, resolving with dialysis CT head no acute changes MRI brain, EEG Ammonia <9 LP done, and CSF studies negative for meningitis Neurology eval noted Diet: heart healthy DVT Prophylaxis: Sq Heparin Code Status: DNR Subjective Date/time seen: 11/20/24 14:15 Interval history: AMS, resolving. Comfortable at bedside Comfortable at bedside Review of Systems Review of Systems: All systems reviewed & are unremarkable except as noted in HPI and below Exam Const: General: comfortable and no acute distress Other: Alert and Oriented x2, obese and comfortable HENMT: Face/Nose/Sinus: Normal nares present Mouth: Yes dry mucous membranes Eyes: General: appearance normal, both eyes and all related structures Sclera: sclerae normal Pupils: Equal, round and reactive pupils present EOM: EOMs intact bilaterally Resp: Effort & Inspection: normal respiratory effort Auscultation: clear to auscultation bilaterally Cardio: Rate: regular rate Rhythm: regular rhythm Other: S1-S2 present without murmur, rub, ectopy GI: Other: Abdomen soft, nondistended, nontender. quiet but normoactive bowel sounds in all quadrants. Skin: General skin exam: normal color Other: skin tear to the left upper extremity, Steri-Stripped. No active bleeding. Various areas of ecchymosis to bilateral upper extremities, no particular pattern. In various stages of healing. Neuro: Cranial nerves: Yes Equal, round and reactive pupils present Speech: normal speech Motor exam (neuro): 5/5 motor strength present throughout Sensory Exam: normal sensation Other: A&O x3 Extrem: General: normal to inspection Psych: Mental Status: mental status grossly normal Affect: normal affect Other: fair insight and judgment. Objective Data Vital Signs Vital Signs: Vital Signs - 24 hr 11/19/24 15:24 11/19/24 16:00 11/19/24 18:00 Temperature 98.3 F Pulse Rate 45 L 43 L 39 L Respiratory Rate 18 Blood Pressure 140/50 L Pulse Oximetry 97 Oxygen Delivery Oxygen Flow Rate Fraction of Inspired Oxygen 11/19/24 19:56 11/19/24 20:00 11/19/24 20:00 Temperature 98.6 F Pulse Rate 55 L 59 L 59 L Respiratory Rate 18 16 Blood Pressure 161/58 H Pulse Oximetry 100 99 Oxygen Delivery Nasal Cannula Oxygen Flow Rate 1 Fraction of Inspired Oxygen 11/19/24 20:25 11/19/24 20:33 11/19/24 22:00 Temperature Pulse Rate 45 L 42 L Respiratory Rate 16 Blood Pressure Pulse Oximetry 99 Oxygen Delivery Nasal Cannula Oxygen Flow Rate 1 Fraction of Inspired Oxygen 11/19/24 23:31 11/19/24 23:52 11/19/24 23:52 Temperature 97.8 F Pulse Rate 50 L 42 L 42 L Respiratory Rate 18 18 Blood Pressure 122/49 L Pulse Oximetry 100 100 Oxygen Delivery Nasal Cannula Oxygen Flow Rate 1 Fraction of Inspired Oxygen 11/20/24 01:07 11/20/24 03:48 11/20/24 04:00 Temperature 98.6 F Pulse Rate 40 L 47 L 45 L Respiratory Rate 20 20 Blood Pressure 156/54 H Pulse Oximetry 100 100 Oxygen Delivery Nasal Cannula Oxygen Flow Rate 1 Fraction of Inspired Oxygen 32 11/20/24 04:00 11/20/24 06:00 11/20/24 08:00 Temperature 97.5 F L Pulse Rate 45 L 44 L 48 L Respiratory Rate 20 Blood Pressure 165/57 H Pulse Oximetry 99 Oxygen Delivery Oxygen Flow Rate Fraction of Inspired Oxygen 11/20/24 08:00 11/20/24 08:00 11/20/24 08:07 Temperature 98.1 F Pulse Rate 58 L 61 Respiratory Rate 16 Blood Pressure 125/57 L Pulse Oximetry 100 Oxygen Delivery Room Air Oxygen Flow Rate Fraction of Inspired Oxygen 11/20/24 08:10 11/20/24 08:18 11/20/24 08:30 Temperature Pulse Rate 60 60 Respiratory Rate Blood Pressure 127/57 L 124/56 L Pulse Oximetry Oxygen Delivery Oxygen Flow Rate 2 Fraction of Inspired Oxygen 11/20/24 08:45 11/20/24 09:00 11/20/24 10:00 Temperature Pulse Rate 59 L 58 L 52 L Respiratory Rate Blood Pressure 105/58 L 105/42 L Pulse Oximetry Oxygen Delivery Oxygen Flow Rate Fraction of Inspired Oxygen 11/20/24 12:00 Temperature 97.8 F Pulse Rate 50 L Respiratory Rate 18 Blood Pressure 181/69 H Pulse Oximetry 99 Oxygen Delivery Oxygen Flow Rate Fraction of Inspired Oxygen Intake/Output Intake/Output: Intake & Output 11/17/24 11/18/24 11/19/24 11/20/24 23:59 23:59 23:59 23:59 Intake Total 1000 2256.6 1931.3 1250 Output Total 600 3500 1800 600 Balance 400 -1243.4 131.3 650 Meds/Results Medications: Active Medications Generic Name Dose Route Start Last Admin Trade Name Freq PRN Reason Stop Dose Admin Acetaminophen 650 mg 11/13/24 21:38 Acetaminophen 325 Mg Tablet PO Q8H PRN Pain Rated 1-3 Acetaminophen 325 mg 11/19/24 12:11 11/19/24 21:20 Acetaminophen 325 Mg Suppository RECTAL 325 mg Q4H PRN Administration Mild Pain (1-3) or Fever Albuterol 2 puff 11/13/24 21:38 Albuterol Sulfate (*Sp) Aerosol 1 Puff INHALATION Q4H PRN Wheezing Artificial Tears 1 drop 11/13/24 21:58 Artificial Tears Ophth Soln 15 Ml Bottle EACH EYE QID PRN Dry Eye(s) Aspirin 81 mg 11/14/24 09:00 11/19/24 08:24 Aspirin 81 Mg Enteric Tablet PO Not Given DAILY BERNARDO Benzonatate 100 mg 11/13/24 21:38 Benzonatate 100 Mg Capsule PO TID PRN cough Brimonidine Tartrate 1 drop 11/14/24 06:00 11/20/24 05:34 Brimonidine Tartrate 0.2% Op Soln 5 Ml Btl EACH EYE 1 drop Q8HR BERNARDO Administration Brinzolamide 1 drop 11/14/24 06:00 11/20/24 05:34 Brinzolamide 1% Ophth Susp 10 Ml EACH EYE 1 drop Q8HR BERNARDO Administration Cholestyramine Resin 4 gm 11/14/24 10:00 11/19/24 08:27 Cholestyramine (W/ Sugar) 4 Gm Powd.Pack PO Not Given 1000,1300,1800 BERNARDO Dextrose 12.5 gm 11/13/24 21:30 Dextrose 50% 25 Gm/50 Ml Syringe IV PUSH PRN PRN Hypoglycemia Protocol Escitalopram Oxalate 15 mg 11/14/24 09:00 11/19/24 08:24 Escitalopram Oxalate 5 Mg Tablet PO Not Given QAM BERNARDO Gabapentin 100 mg 11/14/24 09:00 11/19/24 08:27 Gabapentin 100 Mg Capsule PO Not Given TID BERNARDO Glucagon 1 mg 11/13/24 21:30 Glucagon For Inj 1 Mg Vial IM PRN PRN Hypoglycemia Protocol Glucose 15 gm 11/13/24 21:30 Glucose Oral Gel 15 Gm Of Glucse In 37.5 Gm Tube PO PRN PRN Hypoglycemia Protocol Guaifenesin/Dextromethorphan 10 ml 11/13/24 21:38 Guaifenesin/Dextromethorphan 10 Ml Udc PO Q4-6H PRN Cough Heparin Sodium (Porcine) 5,000 units 11/14/24 22:00 11/20/24 05:34 Heparin Sodium 5,000 Units/Ml Vial SUB-Q 5,000 units Q8HR BERNARDO Administration Dextrose 1,000 mls @ 100 mls/hr 11/13/24 21:30 Dextrose 5% 1,000 Ml IVPB PRN PRN Hypoglycemia Protocol Dextrose 1,000 mls @ 50 mls/hr 11/17/24 12:24 Dextrose 10% IV CONT .Q20H PRN if PN is interrupted Amino Acids/Electrolytes/Dextrose 1,000 mls @ 80 mls/hr 11/17/24 13:00 11/20/24 03:14 Clinimix E 4.25%/5% Solution IV CONT 80 mls/hr .[id number] BERNARDO Administration Protocol Fat Emulsion Intravenous 250 mls @ 20.833 mls/hr 11/17/24 13:00 11/20/24 02:18 Lipids 20% IVPB Infused Q24H BERNARDO Infusion Albumin Human 50 mls @ 999 mls/hr 11/18/24 07:10 Albutein IVPB 12/18/24 07:09 Q10M PRN HYPOTENSION Insulin Aspart 3 - 6 units 11/14/24 08:00 11/20/24 08:11 Insulin Aspart (*Bkc) 100 Units/Ml SUB-Q Not Given TIDWM [facility] Protocol Lidocaine 1 patch 11/14/24 09:00 11/20/24 08:12 Lidocaine 5% Patch TOPICAL 1 patch DAILY BERNARDO Administration Loperamide HCl 2 mg 11/13/24 21:38 Loperamide Hcl 2 Mg Capsule PO Q6H PRN Diarrhea Melatonin 5 mg 11/13/24 22:00 11/19/24 08:26 Melatonin 5 Mg Tablet PO Not Given HS [facility] Miscellaneous Information 1 each 11/20/24 00:01 Please Renew Clinimix. Per [employer] Procedure, It Will Discontinue If Not Renewed XX 12/20/24 00:00 CLARIFY BERNARDO Morphine Sulfate 2 mg 11/20/24 00:03 11/20/24 08:35 Morphine Sulfate (*Crx) 2 Mg/Ml Inj IV PUSH 2 mg Q4H PRN Administration Pain Rated 7-10 Nicotine 1 patch 11/19/24 12:15 11/20/24 08:12 Nicotine (*Pbkc) 21 Mg Patch TRANSDERM 1 patch DAILY BERNARDO Administration Ondansetron HCl 4 mg 11/13/24 21:38 Ondansetron Hcl Odt 4 Mg Tablet PO Q4H PRN Nausea And Vomiting Oxycodone HCl 5 mg 11/13/24 21:38 Oxycodone Hcl (*Crx) 5 Mg Tab Ir PO QHS PRN Pain Rated 4-6 Pantoprazole Sodium 40 mg 11/17/24 09:00 11/20/24 08:12 Pantoprazole Sodium Iv 40 Mg Vial IV PUSH 40 mg QAM [facility] Administration Psyllium Hydrophilic Mucilloid 1 packet 11/13/24 22:00 Psyllium Sugar Free Powder Packet PO DAILY PRN constipation Rosuvastatin Calcium 40 mg 11/13/24 22:00 11/19/24 08:27 Rosuvastatin 20 Mg Tablet PO Not Given QHS BERNARDO Fluticasone/Salmeterol 2 puff 11/19/24 20:00 11/20/24 07:20 Fluticasone/Salmeterol 45-21 Mcg Inhaler 1 Puff INHALATION 2 puff Q12HRT BERNARDO Administration Senna 8.6 mg 11/13/24 21:38 Sennosides 8.6 Mg Tablet PO DAILY PRN Constipation Tamsulosin HCl 0.4 mg 11/14/24 09:00 11/19/24 08:25 Tamsulosin Hcl 0.4 Mg Capsule PO Not Given QAM [facility] Radiology Results: ITS Impressions Chest/Abdomen/Pelvis CT 11/14/24 09:27 IMPRESSION: Bilateral renal calculi. Asymmetric mural thickening of the base of the bladder for which direct visualization is recommended. Findings which may represent partial distal bowel obstruction with significant air distention of the colon just before the anastomotic staple line and distal decompression. Significant gallbladder distention with trace surrounding inflammatory change. Bibasilar atelectasis. Renal Ultrasound 11/14/24 11:43 Impression: No definite abnormality seen. Visualization of the kidneys is somewhat suboptimal related to patient body habitus. Head CT 11/14/24 18:07 IMPRESSION: No acute intracranial findings. 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 Abdomen/Pelvis CT 11/15/24 09:13 IMPRESSION: 1. Bilateral nephrolithiasis with interval advancement of a 3-4 mm at least partially obstructing stone now at the left ureterovesicular junction with mild left hydroureteronephrosis. 2. Likely intermittent/partial small bowel obstruction secondary to a volvulus with at least 360 degrees twist of the distalmost small bowel immediately proximal to ileocolic anastomosis with no interval change in mild dilation of a few loops of more proximal small bowel. 3. Prominent dilation of the gallbladder to 6.5 cm but without evident wall thickening or pericholecystic infiltrate stranding to more specifically suggest acute cholecystitis. Correlate with the right upper quadrant ultrasound or HIDA scan. 4. Very small right and trace left pleural effusions and minimal perihepatic ascites. Abdomen Ultrasound 11/15/24 09:16 IMPRESSION: Fatty infiltration of the liver. Hydropic, fluid-filled gallbladder with dependent stones suspected. Hepatobiliary Scan Nuclear [facility] 11/15/24 15:34 IMPRESSION: 1. Normal hepatobiliary scan. Brain MRI 11/16/24 14:12 IMPRESSION: 1. No significant change in chronic infarcts, the largest involving the plantar to the right middle cerebral and portions of the anterior cerebral artery vascular distribution. No acute intracranial process. Abdomen X-Ray 11/17/24 13:20 IMPRESSION: Likely partial, intermittent bowel obstruction, as detailed above. Chest X-Ray 11/17/24 15:19 IMPRESSION: Tip of the temporary dialysis catheter is at the cavoatrial junction. Lumbar Puncture Fluoroscopy 11/17/24 16:59 IMPRESSION: 1. Successful fluoro-guided lumbar puncture with normal opening pressure of 19 cm water. Labs Labs: Laboratory Results - last 24 hr 11/17/24 11/19/24 11/19/24 13:13 18:40 23:37 WBC RBC Hgb Hct MCV MCH MCHC RDW Plt Count MPV Immature Gran % (Auto) Neut % (Auto) Lymph % (Auto) [place] % (Auto) Eos % (Auto) Baso % (Auto) Lymph # (Auto) [place] # (Auto) Eos # (Auto) Baso # (Auto) Abs Immat Gran (auto) Absolute Neuts (auto) Absolute Nucleated RBC Band Neutrophils % Nucleated RBC % Platelet Estimate Anisocytosis Ovalocytes Schistocytes PT INR APTT Sodium Potassium Chloride Carbon Dioxide Anion Gap BUN Creatinine Estim Creat Clear Calc Estimated GFR Glucose POC Capillary Glucose 174 H 164 H Calcium Phosphorus Magnesium Transferrin Total Bilirubin AST ALT Alkaline Phosphatase Total Protein Albumin Triglycerides Miscellaneous Test Comment 11/20/24 11/20/24 11/20/24 04:30 08:08 11:42 WBC 9.8 RBC 3.58 L Hgb 10.0 L Hct 31.1 L MCV 86.9 MCH 27.9 MCHC 32.2 RDW 15.0 H Plt Count 176 MPV 8.7 Immature Gran % (Auto) 5.2 H Neut % (Auto) 66.4 Lymph % (Auto) 14.9 L [place] % (Auto) 6.7 Eos % (Auto) 6.1 H Baso % (Auto) 0.7 Lymph # (Auto) 1.47 [place] # (Auto) 0.7 H Eos # (Auto) 0.6 H Baso # (Auto) 0.1 Abs Immat Gran (auto) 0.51 H Absolute Neuts (auto) 6.5 Absolute Nucleated RBC 0.000 Band Neutrophils % Not Reportable Nucleated RBC % 0.0 Platelet Estimate Adequate Anisocytosis 1+ Ovalocytes 1+ Schistocytes None seen PT 14.2 INR 1.1 APTT 34.2 Sodium 136 L Potassium 3.4 Chloride 102 Carbon Dioxide 24 Anion Gap 10 BUN 67 H D Creatinine 4.39 H Estim Creat Clear Calc 19 Estimated GFR 13 L Glucose 161 H POC Capillary Glucose 143 H 165 H Calcium 8.6 Phosphorus 5.2 H Magnesium 2.1 Transferrin 89 L Total Bilirubin 0.4 AST 25 ALT 15 Alkaline Phosphatase 107 Total Protein 5.5 L Albumin 2.8 L Triglycerides 175 H Miscellaneous Test Quality VTE Prophylaxis VTE prophylaxis: mechanical ordered
[2024-11-20] MEDS: FAT EMULSIONS IV 20% 250 ML 21 ML IVPB (15:22)
--- NOTE | 2024-11-20 18:16 | PC.NURSE ---
Report given to Beronica. Pt transferring to room 306
--- NOTE | 2024-11-20 18:26 | PC.NURSE ---
This patient, Brent Higginbotham, was received from IMU on 11/20/24 at 1826. Patient/family oriented to unit policies and routines
[2024-11-21] VITALS (8 sets, daily range): BP systolic 127–168; BP diastolic 55–60; PULSE 53–104; RESP 15–18; TEMP 35.9–36.5; O2SAT 95–100
[2024-11-21] MEDS: AMINO ACIDS 4.25%/D5W/LYTES/CA 1,000 ML 80 ML IV CONT (03:50)
[2024-11-21] MEDS: BRINZOLAMIDE 1% OPHTH SUSP 10 ML 1 DROP EACH EYE ×3 (05:47→22:33)
[2024-11-21] MEDS: BRIMONIDINE TARTRATE 0.2% OP SOLN 5 ML BTL 1 DROP EACH EYE ×3 (05:47→22:33)
[2024-11-21 06:08] LABS: Hematocrit 29.4 % (42.0-52.0); Hemoglobin 9.3 g/dL (14.0-18.0); Immature Granulocyte Percent A 4.6 % (0-0.5); Lymphocytes Absolute Auto 1.33 K/mm3 (0.9-3.2); Mean Corpuscular HGB Conc 31.6 g/dl (32-36); Mean Corpuscular Hemoglobin 28.0 pg (26-34); Mean Corpuscular Volume 88.6 fl (80-100); Nucleated Red Blood Cells Absolute Auto 0.030 K/mm3 (0.0-0.012); Nucleated Red Blood Cells Perc 0.3 % (0.0-0.2); Platelet Count Result 161 k/mm3 (150-375); Red Blood Count 3.32 M/mm3 (4.6-6.20); White Blood Count 11.5 K/mm3 (4.5-10.0)
[2024-11-21 06:41] LABS: Alanine Aminotransferase 14 U/L (6-50); Albumin Level 2.5 g/dL (3.5-5.1); Alkaline Phosphatase 88 U/L (38-126); Anion Gap 7 mmol/L (4-12); Aspartate Amino Transferase 20 U/L (17-59); Bilirubin,Total 0.4 mg/dL (0.2-1.3); Blood Urea Nitrogen 75 mg/dL (9-20); Calcium 8.2 mg/dL (8.4-10.2); Carbon Dioxide 24 mmol/L (22-30); Chloride 102 mmol/L (98-107); Estimated CRCL calculation 19 ml/min; Estimated Glomerular Filt Rate 14; Glucose 168 mg/dL (65-110); Magnesium 2.1 mg/dL (1.6-2.3); Potassium 3.7 mmol/L (3.4-5.0); Sodium 133 mmol/L (137-145); Total Protein 5.2 g/dL (6.3-8.2)
[2024-11-21] MEDS: FLUTICASONE/SALMETEROL 45-21 MCG INHALER 1 PUFF 2 PUFF INHALATION ×2 (08:14→20:29)
[2024-11-21] MEDS: LIDOCAINE 5% PATCH 1 PATCH TOPICAL (08:19)
[2024-11-21] MEDS: NICOTINE (*PBKC) 21 MG PATCH 1 PATCH TRANSDERM (08:19)
[2024-11-21] MEDS: PANTOPRAZOLE SODIUM IV 40 MG VIAL IV PUSH (08:19)
--- NOTE | 2024-11-21 09:48 | PCNFU ---
Nutrition Follow-Up Complete: Inadequate energy intake related to NPO status as evidenced by current diet orders Meet estimated needs - Meeting needs with PPN Goal: Pt current nutrition is NPO. PPN Clinmix E 4.25/5 with lipids @ 80 ml/h Nutrition recommendation: Can discontinue PPN when pt is tolerating solid diet with 50% intakes. Continue current orders Last recorded weight is 110.9 kg. Bowel Motility: +1 BM 11/21 Labs Reviewed: Hgb 9.3, Hct 29.4, Alb 2.5, Na 133, BUN 75, Cre 4.23, Glu 168 Meds Noted: Insulin, protonix, Imodium, senna Skin: Deep tissue pressure injury to thigh Additional Notes: Continuing Clinmix for now until SBO can be evaluated further. May need transfer. Clinmix E 4.25/5 @ 80 ml/h provides 1153 kcal, 82 g protein, 2170 ml total volume. Meet needs @ 10 kcal/kg, 0.7 g protein/kg. Not adequate for needs. Monitor diet orders, plan of care, wt, labs. Follow up in 3 days.
--- NOTE | 2024-11-21 10:00 | P.PNNP_ITS ---
Progress Note: A&P Assessment and Plan (1) Acute kidney injury: Code(s): N17.9 - Acute kidney failure, unspecified Status: Acute Assessment and Plan: * relatively stable * baseline creatinine seems to run ~ 1.1 - 1.3mg/dl * creatinine 1.13mg/dl in July 2024 * suspect multifactorial etiology: * prerenal factors * hypotension/hemodynamic instability * urinary retention/obstruction * infection (gallbladder?) * other(?) * evaluation to date noted: * urine electrolytes prerenal * rare urine eosinophils -- possible AIN? (however, no rash or peripheral eosinophilia) * CPK mildly elevated (but not enough to affect kidney function) * mild proteinuria * UA without evidence of infection * renal ultrasound negative (but limited due to body habitus) * HD on 11/17 and 11/18 * holding HD for now * follow trend of repeat labs and UOP for potential recovery (2) Altered mental status: Code(s): R41.82 - Altered mental status, unspecified Status: Acute Assessment and Plan: * improvement noted if not resolving * as noted since 11/15 * etiology?? -- related to renal failure?? * Neurology recommendations noted * MRI of brain noted * s/p lumbar puncture - follow-up on pending tests * follow mentation (3) SBO (small bowel obstruction): Code(s): K56.609 - Unspecified intestinal obstruction, unspecified as to partial versus complete obstruction Status: Acute Assessment and Plan: * admission CT demonstrated findings which may represent partial distal bowel obstruction with significant air distention of the colon just before the and anastomotic staple line and distal decompression * repeat CT scan noted as well * NG tube in place * Surgery following with recommendations noted * PPN for nutritional support * follow repeat imaging * continue supportive therapy (4) Dilated gallbladder: Code(s): K82.8 - Other specified diseases of gallbladder Status: Acute Assessment and Plan: * admission CT demonstrated significant gallbladder distention with trace surrounding inflammatory change * repeat CT scan noted as well * normal LFTs * abdominal exam positive for diffuse tenderness to palpation (but unreliable given AMS) * no nausea or vomiting * Surgery following - poor surgical candidate if intervention needed... (5) Bilateral nephrolithiasis: Code(s): N20.0 - Calculus of kidney Status: Acute Assessment and Plan: * admission and repeat CT scan noted/reviewed * Urology recommendations noted * s/p cystoscopy, stone extraction, bilateral ureteral stent placement (on 11/16) * continue supportive therapy (6) Anemia: Code(s): D64.9 - Anemia, unspecified Status: Acute Assessment and Plan: * related to BRYCE and acute illness * Epogen with HD if needed * follow trend of H/H (7) Hypertension: Qualifiers: Hypertension type: primary hypertension Qualified Code(s): I10 - Essential (primary) hypertension Code(s): I10 - Essential (primary) hypertension Status: Chronic Assessment and Plan: * slowly resume home BP medications * initially hypotensive on admission * follow trend of hemodynamics (8) Type 2 diabetes mellitus: Qualifiers: Diabetes mellitus intermediate card tender insulin use: with intermediate card tender use Diabetes mellitus complication status: with hypoglycemia Diabetes mellitus complication detail: without coma Qualified Code(s): E11.649 - Type 2 diabetes mellitus with hypoglycemia without coma; Z79.4 - snf (current) use of insulin Code(s): E11.9 - Type 2 diabetes mellitus without complications Status: Chronic Assessment and Plan: * issues with hypoglyemia prior to admission noted * follow accu-cheks * glycemic control per hospitalist Will continue to follow. L Subjective Date/time seen: 11/21/24 10:00 Interval history: Follow-up for acute kidney injury/acute renal failure. Renal function/creatinine relatively stable despite no further dialysis treatments since Wednesday (11/18) in association with good urine output; mentation seems to be doing better if not stable as well; NG clamped and scheduled for hypaque enema this AM for further assessment; no apparent distress noted. Exam 2 Narrative: General: large but ill-appearing male in NAD Heart: normal S1 and S2; no rub Lungs: clear anteriorly Abdomen: obese with positive bowel sounds Extremities: no cyanosis or clubbing; trace edema Skin: no rash Objective Data Vital Signs Vital Signs: Vital Signs Temp Pulse Resp BP Pulse Ox O2 Del Method FiO2 11/21/24 08:18 57 L 16 11/21/24 08:15 95 Room Air 11/21/24 05:56 96.6 F L 104 H 18 168/57 H 97 11/20/24 20:40 99 Room Air 11/20/24 20:30 97.7 F 51 L 17 152/63 H 98 11/20/24 20:00 51 L 17 98 Room Air 32 11/20/24 16:00 97.8 F 49 L 18 155/55 H 100 Intake/Output Intake/Output: Intake & Output 11/18/24 11/19/24 11/20/24 11/21/24 23:59 23:59 23:59 23:59 Intake Total 2256.6 1931.3 3849.3 1248.7 Output Total 3500 1800 2375 900 Balance -1243.4 131.3 1474.3 348.7 Meds/Results Medications: Active Medications Generic Name Dose Route Start Last Admin Trade Name Freq PRN Reason Stop Dose Admin Acetaminophen 650 mg 11/13/24 21:38 Acetaminophen 325 Mg Tablet PO Q8H PRN Pain Rated 1-3 Acetaminophen 325 mg 11/19/24 12:11 11/19/24 21:20 Acetaminophen 325 Mg Suppository RECTAL 325 mg Q4H PRN Administration Mild Pain (1-3) or Fever Albuterol 2 puff 11/13/24 21:38 Albuterol Sulfate (*Sp) Aerosol 1 Puff INHALATION Q4H PRN Wheezing Artificial Tears 1 drop 11/13/24 21:58 Artificial Tears Ophth Soln 15 Ml Bottle EACH EYE QID PRN Dry Eye(s) Aspirin 81 mg 11/14/24 09:00 11/19/24 08:24 Aspirin 81 Mg Enteric Tablet PO Not Given DAILY [facility] Benzonatate 100 mg 11/13/24 21:38 Benzonatate 100 Mg Capsule PO TID PRN cough Brimonidine Tartrate 1 drop 11/14/24 06:00 11/21/24 05:47 Brimonidine Tartrate 0.2% Op Soln 5 Ml Btl EACH EYE 1 drop Q8HR [facility] Administration Brinzolamide 1 drop 11/14/24 06:00 11/21/24 05:47 Brinzolamide 1% Ophth Susp 10 Ml EACH EYE 1 drop Q8HR [facility] Administration Cholestyramine Resin 4 gm 11/14/24 10:00 11/19/24 08:27 Cholestyramine (W/ Sugar) 4 Gm Powd.Pack PO Not Given 1000,1300,1800 [facility] Dextrose 12.5 gm 11/13/24 21:30 Dextrose 50% 25 Gm/50 Ml Syringe IV PUSH PRN PRN Hypoglycemia Protocol Escitalopram Oxalate 15 mg 11/14/24 09:00 11/19/24 08:24 Escitalopram Oxalate 5 Mg Tablet PO Not Given QAM [facility] Gabapentin 100 mg 11/14/24 09:00 11/19/24 08:27 Gabapentin 100 Mg Capsule PO Not Given TID [facility] Glucagon 1 mg 11/13/24 21:30 Glucagon For Inj 1 Mg Vial IM PRN PRN Hypoglycemia Protocol Glucose 15 gm 11/13/24 21:30 Glucose Oral Gel 15 Gm Of Glucse In 37.5 Gm Tube PO PRN PRN Hypoglycemia Protocol Guaifenesin/Dextromethorphan 10 ml 11/13/24 21:38 Guaifenesin/Dextromethorphan 10 Ml Udc PO Q4-6H PRN Cough Heparin Sodium (Porcine) 5,000 units 11/14/24 22:00 11/21/24 05:46 Heparin Sodium 5,000 Units/Ml Vial SUB-Q 5,000 units Q8HR [facility] Administration Dextrose 1,000 mls @ 100 mls/hr 11/13/24 21:30 Dextrose 5% 1,000 Ml IVPB PRN PRN Hypoglycemia Protocol Dextrose 1,000 mls @ 50 mls/hr 11/17/24 12:24 Dextrose 10% IV CONT .Q20H PRN if PN is interrupted Amino Acids/Electrolytes/Dextrose 1,000 mls @ 80 mls/hr 11/17/24 13:00 11/21/24 03:50 Clinimix E 4.25%/5% Solution IV CONT 80 mls/hr .[id number] [facility] Administration Protocol Fat Emulsion Intravenous 250 mls @ 20.833 mls/hr 11/17/24 13:00 11/21/24 03:52 Lipids 20% IVPB Infused Q24H [facility] Infusion Albumin Human 50 mls @ 999 mls/hr 11/18/24 07:10 Albutein IVPB 12/18/24 07:09 Q10M PRN HYPOTENSION Insulin Aspart 3 - 6 units 11/14/24 08:00 11/21/24 12:04 Insulin Aspart (*Bkc) 100 Units/Ml SUB-Q Not Given TIDWM [facility] Protocol Lidocaine 1 patch 11/14/24 09:00 11/21/24 08:19 Lidocaine 5% Patch TOPICAL 1 patch DAILY [facility] Administration Loperamide HCl 2 mg 11/13/24 21:38 Loperamide Hcl 2 Mg Capsule PO Q6H PRN Diarrhea Melatonin 5 mg 11/13/24 22:00 11/19/24 08:26 Melatonin 5 Mg Tablet PO Not Given [facility] Miscellaneous Information 1 each 11/20/24 00:01 Please Renew Clinimix. Per [employer] Procedure, It Will Discontinue If Not Renewed XX 12/20/24 00:00 CLARIFY [facility] Morphine Sulfate 2 mg 11/20/24 00:03 11/20/24 21:24 Morphine Sulfate (*Crx) 2 Mg/Ml Inj IV PUSH 2 mg Q4H PRN Administration Pain Rated 7-10 Nicotine 1 patch 11/19/24 12:15 11/21/24 08:19 Nicotine (*Pbkc) 21 Mg Patch TRANSDERM 1 patch DAILY [facility] Administration Ondansetron HCl 4 mg 11/13/24 21:38 Ondansetron Hcl Odt 4 Mg Tablet PO Q4H PRN Nausea And Vomiting Oxycodone HCl 5 mg 11/13/24 21:38 Oxycodone Hcl (*Crx) 5 Mg Tab Ir PO QHS PRN Pain Rated 4-6 Pantoprazole Sodium 40 mg 11/17/24 09:00 11/21/24 08:19 Pantoprazole Sodium Iv 40 Mg Vial IV PUSH 40 mg QAM [facility] Administration Psyllium Hydrophilic Mucilloid 1 packet 11/13/24 22:00 Psyllium Sugar Free Powder Packet PO DAILY PRN constipation Rosuvastatin Calcium 40 mg 11/13/24 22:00 11/19/24 08:27 Rosuvastatin 20 Mg Tablet PO Not Given QHS [facility] Fluticasone/Salmeterol 2 puff 11/19/24 20:00 11/21/24 08:14 Fluticasone/Salmeterol 45-21 Mcg Inhaler 1 Puff INHALATION 2 puff Q12HRT [facility] Administration Senna 8.6 mg 11/13/24 21:38 Sennosides 8.6 Mg Tablet PO DAILY PRN Constipation Tamsulosin HCl 0.4 mg 11/14/24 09:00 11/19/24 08:25 Tamsulosin Hcl 0.4 Mg Capsule PO Not Given QAM [facility] Radiology Results: ITS Impressions Chest/Abdomen/Pelvis CT 11/14/24 09:27 IMPRESSION: Bilateral renal calculi. Asymmetric mural thickening of the base of the bladder for which direct visualization is recommended. Findings which may represent partial distal bowel obstruction with significant air distention of the colon just before the anastomotic staple line and distal decompression. Significant gallbladder distention with trace surrounding inflammatory change. Bibasilar atelectasis. Renal Ultrasound 11/14/24 11:43 Impression: No definite abnormality seen. Visualization of the kidneys is somewhat suboptimal related to patient body habitus. Head CT 11/14/24 18:07 IMPRESSION: No acute intracranial findings. 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 Abdomen/Pelvis CT 11/15/24 09:13 IMPRESSION: 1. Bilateral nephrolithiasis with interval advancement of a 3-4 mm at least partially obstructing stone now at the left ureterovesicular junction with mild left hydroureteronephrosis. 2. Likely intermittent/partial small bowel obstruction secondary to a volvulus with at least 360 degrees twist of the distalmost small bowel immediately proximal to ileocolic anastomosis with no interval change in mild dilation of a few loops of more proximal small bowel. 3. Prominent dilation of the gallbladder to 6.5 cm but without evident wall thickening or pericholecystic infiltrate stranding to more specifically suggest acute cholecystitis. Correlate with the right upper quadrant ultrasound or HIDA scan. 4. Very small right and trace left pleural effusions and minimal perihepatic ascites. Abdomen Ultrasound 11/15/24 09:16 IMPRESSION: Fatty infiltration of the liver. Hydropic, fluid-filled gallbladder with dependent stones suspected. Hepatobiliary Scan [facility] 11/15/24 15:34 IMPRESSION: 1. Normal hepatobiliary scan. Brain MRI 11/16/24 14:12 IMPRESSION: 1. No significant change in chronic infarcts, the largest involving the plantar to the right middle cerebral and portions of the anterior cerebral artery vascular distribution. No acute intracranial process. Chest X-Ray 11/17/24 15:19 IMPRESSION: Tip of the temporary dialysis catheter is at the cavoatrial junction. Lumbar Puncture Fluoroscopy 11/17/24 16:59 IMPRESSION: 1. Successful fluoro-guided lumbar puncture with normal opening pressure of 19 cm water. Abdomen X-Ray 11/20/24 14:45 IMPRESSION: Distended bowel loops which may indicate obstruction. Follow-up advised. Bilateral double-J stents. Labs Labs: Laboratory Tests 11/21/24 05:33 11/21/24 05:33 Calcium 8.2 L Phosphorus 5.6 H Magnesium 2.1 Total Bilirubin 0.4 AST 20 ALT 14 Alkaline Phosphatase 88 Total Protein 5.2 L Albumin 2.5 L Microbiology 11/17/24 13:13 Cerebral Spinal Fluid Sterile Body Fluid Culture - Preliminary
--- NOTE | 2024-11-21 10:29 | P.PNGS_ITS ---
Progress Note: A&P Assessment and Plan (1) SBO (small bowel obstruction): Code(s): K56.609 - Unspecified intestinal obstruction, unspecified as to partial versus complete obstruction Status: Acute Assessment and Plan: Patient is feeling well today. Tolerated clamping trial. Hypaque enema scheduled for today to assess for stricture/obstruction. Will follow up with results. If any problems in this location, he may need transfer to colorectal surgeon for revision of anastomosis. If no evidence of stricture/obstruction, could consider pulling NG tube and starting clear liquid diet. (2) Acute renal failure: Qualifiers: Acute renal failure type: unspecified Qualified Code(s): N17.9 - Acute kidney failure, unspecified Code(s): N17.9 - Acute kidney failure, unspecified Status: Acute Assessment and Plan: continue hemodialysis through temporary dialysis catheter, seems to be more alert today with mental status improved. Plan Discussed patient's case and plan of care with Dr. Daniel. Subjective Subjective Date/Time Seen: 11/21/24 10:29 Patient reports: no new complaints, flatus and bowel movement Interval history: Patient is doing well today. He tolerated clamping trial without difficulty. No abdominal pain. Hypaque enema scheduled for today. Exam GI: Inspection: non-distended GI Palp: Yes Soft to palpation, No Tenderness to palpation present (GI) and No Guarding due to palpation present (GI) Auscultation: normal bowel sounds Objective Data Vital Signs Vital Signs: Vital Signs - 24 hr 11/20/24 12:00 11/20/24 16:00 11/20/24 20:00 Temperature 97.8 F 97.8 F Pulse Rate 50 L 49 L 51 L Respiratory Rate 18 18 17 Blood Pressure 181/69 H 155/55 H Pulse Oximetry 99 100 98 Oxygen Delivery Room Air Fraction of Inspired Oxygen 32 11/20/24 20:30 11/20/24 20:40 11/21/24 05:56 Temperature 97.7 F 96.6 F L Pulse Rate 51 L 104 H Respiratory Rate 17 18 Blood Pressure 152/63 H 168/57 H Pulse Oximetry 98 99 97 Oxygen Delivery Room Air Fraction of Inspired Oxygen 11/21/24 08:15 11/21/24 08:18 Temperature Pulse Rate 57 L Respiratory Rate 16 Blood Pressure Pulse Oximetry 95 Oxygen Delivery Room Air Fraction of Inspired Oxygen Intake/Output Intake/Output: Intake & Output 11/18/24 11/19/24 11/20/24 11/21/24 23:59 23:59 23:59 23:59 Intake Total 2256.6 1931.3 3849.3 1248.7 Output Total 3500 1800 2375 900 Balance -1243.4 131.3 1474.3 348.7 Meds/Results Medications: Active Medications Generic Name Dose Route Start Last Admin Trade Name Freq PRN Reason Stop Dose Admin Acetaminophen 650 mg 11/13/24 21:38 Acetaminophen 325 Mg Tablet PO Q8H PRN Pain Rated 1-3 Acetaminophen 325 mg 11/19/24 12:11 11/19/24 21:20 Acetaminophen 325 Mg Suppository RECTAL 325 mg Q4H PRN Administration Mild Pain (1-3) or Fever Albuterol 2 puff 11/13/24 21:38 Albuterol Sulfate (*Sp) Aerosol 1 Puff INHALATION Q4H PRN Wheezing Artificial Tears 1 drop 11/13/24 21:58 Artificial Tears Ophth Soln 15 Ml Bottle EACH EYE QID PRN Dry Eye(s) Aspirin 81 mg 11/14/24 09:00 11/19/24 08:24 Aspirin 81 Mg Enteric Tablet PO Not Given DAILY [facility] Benzonatate 100 mg 11/13/24 21:38 Benzonatate 100 Mg Capsule PO TID PRN cough Brimonidine Tartrate 1 drop 11/14/24 06:00 11/21/24 05:47 Brimonidine Tartrate 0.2% Op Soln 5 Ml Btl EACH EYE 1 drop Q8HR [facility] Administration Brinzolamide 1 drop 11/14/24 06:00 11/21/24 05:47 Brinzolamide 1% Ophth Susp 10 Ml EACH EYE 1 drop Q8HR [facility] Administration Cholestyramine Resin 4 gm 11/14/24 10:00 11/19/24 08:27 Cholestyramine (W/ Sugar) 4 Gm Powd.Pack PO Not Given 1000,1300,1800 [facility] Dextrose 12.5 gm 11/13/24 21:30 Dextrose 50% 25 Gm/50 Ml Syringe IV PUSH PRN PRN Hypoglycemia Protocol Escitalopram Oxalate 15 mg 11/14/24 09:00 11/19/24 08:24 Escitalopram Oxalate 5 Mg Tablet PO Not Given QAM [facility] Gabapentin 100 mg 11/14/24 09:00 11/19/24 08:27 Gabapentin 100 Mg Capsule PO Not Given TID [facility] Glucagon 1 mg 11/13/24 21:30 Glucagon For Inj 1 Mg Vial IM PRN PRN Hypoglycemia Protocol Glucose 15 gm 11/13/24 21:30 Glucose Oral Gel 15 Gm Of Glucse In 37.5 Gm Tube PO PRN PRN Hypoglycemia Protocol Guaifenesin/Dextromethorphan 10 ml 11/13/24 21:38 Guaifenesin/Dextromethorphan 10 Ml Udc PO Q4-6H PRN Cough Heparin Sodium (Porcine) 5,000 units 11/14/24 22:00 11/21/24 05:46 Heparin Sodium 5,000 Units/Ml Vial SUB-Q 5,000 units Q8HR [facility] Administration Dextrose 1,000 mls @ 100 mls/hr 11/13/24 21:30 Dextrose 5% 1,000 Ml IVPB PRN PRN Hypoglycemia Protocol Dextrose 1,000 mls @ 50 mls/hr 11/17/24 12:24 Dextrose 10% IV CONT .Q20H PRN if PN is interrupted Amino Acids/Electrolytes/Dextrose 1,000 mls @ 80 mls/hr 11/17/24 13:00 11/21/24 03:50 Clinimix E 4.25%/5% Solution IV CONT 80 mls/hr .[id number] [facility] Administration Protocol Fat Emulsion Intravenous 250 mls @ 20.833 mls/hr 11/17/24 13:00 11/21/24 03:52 Lipids 20% IVPB Infused Q24H [facility] Infusion Albumin Human 50 mls @ 999 mls/hr 11/18/24 07:10 Albutein IVPB 12/18/24 07:09 Q10M PRN HYPOTENSION Insulin Aspart 3 - 6 units 11/14/24 08:00 11/20/24 17:40 Insulin Aspart (*Bkc) 100 Units/Ml SUB-Q Not Given TIDWM [facility] Protocol Lidocaine 1 patch 11/14/24 09:00 11/21/24 08:19 Lidocaine 5% Patch TOPICAL 1 patch DAILY [facility] Administration Loperamide HCl 2 mg 11/13/24 21:38 Loperamide Hcl 2 Mg Capsule PO Q6H PRN Diarrhea Melatonin 5 mg 11/13/24 22:00 07/13/25 08:26 Melatonin 5 Mg Tablet PO Not Given [facility] Miscellaneous Information 1 each 11/20/24 00:01 Please Renew Clinimix. Per [employer] Procedure, It Will Discontinue If Not Renewed XX 12/20/24 00:00 [facility] Morphine Sulfate 2 mg 11/20/24 00:03 11/20/24 21:24 Morphine Sulfate (*Crx) 2 Mg/Ml Inj IV PUSH 2 mg Q4H PRN Administration Pain Rated 7-10 Nicotine 1 patch 11/19/24 12:15 11/21/24 08:19 Nicotine (*Pbkc) 21 Mg Patch TRANSDERM 1 patch DAILY [facility] Administration Ondansetron HCl 4 mg 11/13/24 21:38 Ondansetron Hcl Odt 4 Mg Tablet PO Q4H PRN Nausea And Vomiting Oxycodone HCl 5 mg 11/13/24 21:38 Oxycodone Hcl (*Crx) 5 Mg Tab Ir PO QHS PRN Pain Rated 4-6 Pantoprazole Sodium 40 mg 11/17/24 09:00 11/21/24 08:19 Pantoprazole Sodium Iv 40 Mg Vial IV PUSH 40 mg QAM [facility] Administration Psyllium Hydrophilic Mucilloid 1 packet 11/13/24 22:00 Psyllium Sugar Free Powder Packet PO DAILY PRN constipation Rosuvastatin Calcium 40 mg 11/13/24 22:00 11/19/24 08:27 Rosuvastatin 20 Mg Tablet PO Not Given QHS [facility] Fluticasone/Salmeterol 2 puff 11/19/24 20:00 11/21/24 08:14 Fluticasone/Salmeterol 45-21 Mcg Inhaler 1 Puff INHALATION 2 puff Q12HRT [facility] Administration Senna 8.6 mg 11/13/24 21:38 Sennosides 8.6 Mg Tablet PO DAILY PRN Constipation Tamsulosin HCl 0.4 mg 11/14/24 09:00 11/19/24 08:25 Tamsulosin Hcl 0.4 Mg Capsule PO Not Given QAM [facility] Radiology Results: ITS Impressions Chest/Abdomen/Pelvis CT 11/14/24 09:27 IMPRESSION: Bilateral renal calculi. Asymmetric mural thickening of the base of the bladder for which direct visualization is recommended. Findings which may represent partial distal bowel obstruction with significant air distention of the colon just before the anastomotic staple line and distal decompression. Significant gallbladder distention with trace surrounding inflammatory change. Bibasilar atelectasis. Renal Ultrasound 11/14/24 11:43 Impression: No definite abnormality seen. Visualization of the kidneys is somewhat suboptimal related to patient body habitus. Head CT 11/14/24 18:07 IMPRESSION: No acute intracranial findings. 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 Abdomen/Pelvis CT 11/15/24 09:13 IMPRESSION: 1. Bilateral nephrolithiasis with interval advancement of a 3-4 mm at least partially obstructing stone now at the left ureterovesicular junction with mild left hydroureteronephrosis. 2. Likely intermittent/partial small bowel obstruction secondary to a volvulus with at least 360 degrees twist of the distalmost small bowel immediately proximal to ileocolic anastomosis with no interval change in mild dilation of a few loops of more proximal small bowel. 3. Prominent dilation of the gallbladder to 6.5 cm but without evident wall thickening or pericholecystic infiltrate stranding to more specifically suggest acute cholecystitis. Correlate with the right upper quadrant ultrasound or HIDA scan. 4. Very small right and trace left pleural effusions and minimal perihepatic ascites. Abdomen Ultrasound 11/15/24 09:16 IMPRESSION: Fatty infiltration of the liver. Hydropic, fluid-filled gallbladder with dependent stones suspected. Hepatobiliary Scan [facility] 11/15/24 15:34 IMPRESSION: 1. Normal hepatobiliary scan. Brain MRI 11/16/24 14:12 IMPRESSION: 1. No significant change in chronic infarcts, the largest involving the plantar to the right middle cerebral and portions of the anterior cerebral artery vascular distribution. No acute intracranial process. Chest X-Ray 11/17/24 15:19 IMPRESSION: Tip of the temporary dialysis catheter is at the cavoatrial junction. Lumbar Puncture Fluoroscopy 11/17/24 16:59 IMPRESSION: 1. Successful fluoro-guided lumbar puncture with normal opening pressure of 19 cm water. Abdomen X-Ray 11/20/24 14:45 IMPRESSION: Distended bowel loops which may indicate obstruction. Follow-up advised. Bilateral double-J stents. Labs Labs: Laboratory Results - last 24 hr 11/20/24 11/20/24 11/20/24 11:42 15:57 20:31 WBC RBC Hgb Hct MCV MCH MCHC RDW Plt Count MPV Immature Gran % (Auto) Neut % (Auto) Lymph % (Auto) Sharp % (Auto) Eos % (Auto) Baso % (Auto) Lymph # (Auto) Sharp # (Auto) Eos # (Auto) Baso # (Auto) Abs Immat Gran (auto) Absolute Neuts (auto) Absolute Nucleated RBC Nucleated RBC % Sodium Potassium Chloride Carbon Dioxide Anion Gap BUN Creatinine Estim Creat Clear Calc Estimated GFR Glucose POC Capillary Glucose 165 H 170 H 161 H Calcium Phosphorus Magnesium Total Bilirubin AST ALT Alkaline Phosphatase Total Protein Albumin 11/21/24 11/21/24 02:09 05:33 WBC 11.5 H RBC 3.32 L Hgb 9.3 L Hct 29.4 L MCV 88.6 MCH 28.0 MCHC 31.6 L RDW 14.7 H Plt Count 161 MPV 9.0 Immature Gran % (Auto) 4.6 H Neut % (Auto) 70.3 Lymph % (Auto) 11.6 L Sharp % (Auto) 6.9 Eos % (Auto) 5.9 H Baso % (Auto) 0.7 Lymph # (Auto) 1.33 Sharp # (Auto) 0.8 H Eos # (Auto) 0.7 H Baso # (Auto) 0.1 Abs Immat Gran (auto) 0.53 H Absolute Neuts (auto) 8.1 H Absolute Nucleated RBC 0.030 H Nucleated RBC % 0.3 H Sodium 133 L Potassium 3.7 Chloride 102 Carbon Dioxide 24 Anion Gap 7 BUN 75 H Creatinine 4.23 H Estim Creat Clear Calc 19 Estimated GFR 14 L Glucose 168 H POC Capillary Glucose 173 H Calcium 8.2 L Phosphorus 5.6 H Magnesium 2.1 Total Bilirubin 0.4 AST 20 ALT 14 Alkaline Phosphatase 88 Total Protein 5.2 L Albumin 2.5 L
[2024-11-21] MEDS: FAT EMULSIONS IV 20% 250 ML 21 ML IVPB (13:36)
[2024-11-21 14:08] LABS: VDRL, CSF Non Reactive (Non Rea:<1:1)
--- NOTE | 2024-11-21 14:48 | PM.IMPN ---
Progress Note: A&P Assessment and Plan (1) Acute renal failure: Qualifiers: Acute renal failure type: unspecified Qualified Code(s): N17.9 - Acute kidney failure, unspecified Code(s): N17.9 - Acute kidney failure, unspecified Status: Acute Assessment and Plan: -On dialysis - baseline: 1.1-1.3 - renal ultrasound unremarkable continue IVF and [place] catheter s/p cystoscopy with left ureteroscopy and stone extraction with bilateral stent Nephrology and Urology following Continue dialysis per nephrology (2) Hypotension: Qualifiers: Hypotension type: hypotension due to hypovolemia Qualified Code(s): E86.1 - Hypovolemia Code(s): I95.9 - Hypotension, unspecified Status: Resolved Assessment and Plan: resolved (3) Type 2 diabetes mellitus: Qualifiers: Diabetes mellitus intermediate accountant insulin use: with intermediate accountant use Diabetes mellitus complication status: with hypoglycemia Diabetes mellitus complication detail: without coma Qualified Code(s): E11.649 - Type 2 diabetes mellitus with hypoglycemia without coma; Z79.4 - nursing home (current) use of insulin Code(s): E11.9 - Type 2 diabetes mellitus without complications Status: Chronic Assessment and Plan: NPO CCI with accucheks and adjust with clinical course (4) Hypertension: Qualifiers: Hypertension type: primary hypertension Qualified Code(s): I10 - Essential (primary) hypertension Code(s): I10 - Essential (primary) hypertension Status: Chronic Assessment and Plan: titrate home meds with clinical course Plan Partial SBO CT AP reviewed NG has been clamped. plan for contrast enema today. started on clear liquid diet and NG removed Contrast enema per Gen surgery Gen surgery following monitor Gall bladder distension Rule out Acute cholecystitis CT AP reviewed HIDA scan normal discontinued Rocephin and Metronidazole Blood culture Hydrops Gallbladder US abd reviewed Gen surgery following AMS, resolved from uremia, resolving with dialysis CT head no acute changes MRI brain, EEG moderate diffuse background slowing Ammonia <9 LP done, and CSF studies negative for meningitis Neurology eval noted mildly obstructing left ureteral calculus and right renal stones S/P Cystoscopy, bilateral retrogrades, left ureteroscopy, stone extraction, bilateral ureteral stent placement urology team on board Diet: heart healthy DVT Prophylaxis: Sq Heparin Code Status: DNR Subjective Date/time seen: 11/21/24 14:48 Interval history: per HPI: 69 y/o M with PMH of CVA, CAD, BPH, COPD, JAMES intolerant of CPAP, DM, and HTN presents here with generalized weakness. The patient presents here [facility] on 11/13 for further evaluation of generalized weakness. The patient reports he has had generalized weakness for the past week. It is accompanied by poor appetite and poor PO intake. ME reported the patient has been having hypoglycemic events, occurred most recently yesterday. Patient is unsure how low his glucose levels were and has poor memory of events yesterday. He denies accompanying abdominal pain, chest pain, shortness of breath, dysuria, difficulty urinating, fever, and chills. He does endorse a mild headache and pain in his right shoulder that has been chronic since his CVA. Initial VS at presentation: 97.4? F, HR 49, R 12, 107/40, and 94% on 4L NC. ED workup showed: WBC 10.4, hemoglobin 12.3 (at baseline), normal coags, creatinine 5.43 and GFR 11 (1.13 and GFR >60 on 07/12/2024), glucose 90, lactic 0.8, CRP 2.8. CXR showed no focal consolidation, mild perihilar bronchial wall thickening a finding suggestive of respiratory bronchiolitis. 11/21/24 Patient was seen and ermined at [facility] [place]. he is feeling better. his abd pain improved. deneis chest pain,SOb,N/V. has been diagnosed with SBO. NG has been clamped. plan for contrast enema today. started on clear liquid diet and NG removed Acute encephalopathy improved [place]. on HD. has nephrology team on board Review of Systems Review of Systems: All systems reviewed & are unremarkable except as noted in HPI and below Exam Const: General: comfortable and no acute distress Other: Alert and Oriented x2, obese and comfortable HENMT: Face/Nose/Sinus: Normal nares present Mouth: Yes dry mucous membranes Eyes: General: appearance normal, both eyes and all related structures Sclera: sclerae normal Pupils: Equal, round and reactive pupils present EOM: EOMs intact bilaterally Resp: Effort & Inspection: normal respiratory effort Auscultation: clear to auscultation bilaterally Cardio: Rate: regular rate Rhythm: regular rhythm Other: S1-S2 present without murmur, rub, ectopy GI: Other: Abdomen soft, nondistended, nontender. quiet but normoactive bowel sounds in all quadrants. Skin: General skin exam: normal color Other: skin tear to the left upper extremity, Steri-Stripped. No active bleeding. Various areas of ecchymosis to bilateral upper extremities, no particular pattern. In various stages of healing. Neuro: Cranial nerves: Yes Equal, round and reactive pupils present Speech: normal speech Motor exam (neuro): 5/5 motor strength present throughout Sensory Exam: normal sensation Other: A&O x3 Extrem: General: normal to inspection Psych: Mental Status: mental status grossly normal Affect: normal affect Other: fair insight and judgment. Objective Data Vital Signs Vital Signs: Vital Signs - 24 hr 11/20/24 16:00 11/20/24 20:00 11/20/24 20:30 Temperature 97.8 F 97.7 F Pulse Rate 49 L 51 L 51 L Respiratory Rate 18 17 17 Blood Pressure 155/55 H 152/63 H Pulse Oximetry 100 98 98 Oxygen Delivery Room Air Fraction of Inspired Oxygen 32 11/20/24 20:40 11/21/24 05:56 11/21/24 08:15 Temperature 96.6 F L Pulse Rate 104 H Respiratory Rate 18 Blood Pressure 168/57 H Pulse Oximetry 99 97 95 Oxygen Delivery Room Air Room Air Fraction of Inspired Oxygen 11/21/24 08:18 11/21/24 08:20 11/21/24 14:00 Temperature 97.2 F L Pulse Rate 57 L 60 Respiratory Rate 16 15 Blood Pressure 146/60 H Pulse Oximetry 100 Oxygen Delivery Room Air Fraction of Inspired Oxygen Intake/Output Intake/Output: Intake & Output 11/18/24 11/19/24 11/20/24 11/21/24 23:59 23:59 23:59 23:59 Intake Total 2256.6 1931.3 3849.3 1248.7 Output Total 3500 1800 2375 900 Balance -1243.4 131.3 1474.3 348.7 Meds/Results Medications: Active Medications Generic Name Dose Route Start Last Admin Trade Name Freq PRN Reason Stop Dose Admin Acetaminophen 650 mg 11/13/24 21:38 Acetaminophen 325 Mg Tablet PO Q8H PRN Pain Rated 1-3 Acetaminophen 325 mg 11/19/24 12:11 11/19/24 21:20 Acetaminophen 325 Mg Suppository RECTAL 325 mg Q4H PRN Administration Mild Pain (1-3) or Fever Albuterol 2 puff 11/13/24 21:38 Albuterol Sulfate (*Sp) Aerosol 1 Puff INHALATION Q4H PRN Wheezing Artificial Tears 1 drop 11/13/24 21:58 Artificial Tears Ophth Soln 15 Ml Bottle EACH EYE QID PRN Dry Eye(s) Aspirin 81 mg 11/14/24 09:00 11/19/24 08:24 Aspirin 81 Mg Enteric Tablet PO Not Given DAILY BERNARDO Benzonatate 100 mg 11/13/24 21:38 Benzonatate 100 Mg Capsule PO TID PRN cough Brimonidine Tartrate 1 drop 11/14/24 06:00 11/21/24 13:36 Brimonidine Tartrate 0.2% Op Soln 5 Ml Btl EACH EYE 1 drop Q8HR BERNARDO Administration Brinzolamide 1 drop 11/14/24 06:00 11/21/24 13:36 Brinzolamide 1% Ophth Susp 10 Ml EACH EYE 1 drop Q8HR BERNARDO Administration Cholestyramine Resin 4 gm 11/14/24 10:00 11/19/24 08:27 Cholestyramine (W/ Sugar) 4 Gm Powd.Pack PO Not Given 1000,1300,1800 BERNARDO Dextrose 12.5 gm 11/13/24 21:30 Dextrose 50% 25 Gm/50 Ml Syringe IV PUSH PRN PRN Hypoglycemia Protocol Escitalopram Oxalate 15 mg 11/14/24 09:00 11/19/24 08:24 Escitalopram Oxalate 5 Mg Tablet PO Not Given QAM BERNARDO Gabapentin 100 mg 11/14/24 09:00 11/19/24 08:27 Gabapentin 100 Mg Capsule PO Not Given TID BERNARDO Glucagon 1 mg 11/13/24 21:30 Glucagon For Inj 1 Mg Vial IM PRN PRN Hypoglycemia Protocol Glucose 15 gm 11/13/24 21:30 Glucose Oral Gel 15 Gm Of Glucse In 37.5 Gm Tube PO PRN PRN Hypoglycemia Protocol Guaifenesin/Dextromethorphan 10 ml 11/13/24 21:38 Guaifenesin/Dextromethorphan 10 Ml Udc PO Q4-6H PRN Cough Heparin Sodium (Porcine) 5,000 units 11/14/24 22:00 11/21/24 13:36 Heparin Sodium 5,000 Units/Ml Vial SUB-Q 5,000 units Q8HR BERNARDO Administration Dextrose 1,000 mls @ 100 mls/hr 11/13/24 21:30 Dextrose 5% 1,000 Ml IVPB PRN PRN Hypoglycemia Protocol Albumin Human 50 mls @ 999 mls/hr 11/18/24 07:10 Albutein IVPB 12/18/24 07:09 Q10M PRN HYPOTENSION Insulin Aspart 3 - 6 units 11/14/24 08:00 11/21/24 12:48 Insulin Aspart (*Bkc) 100 Units/Ml SUB-Q Not Given TIDWM BERNARDO Protocol Lidocaine 1 patch 11/14/24 09:00 11/21/24 08:19 Lidocaine 5% Patch TOPICAL 1 patch DAILY BERNARDO Administration Loperamide HCl 2 mg 11/13/24 21:38 Loperamide Hcl 2 Mg Capsule PO Q6H PRN Diarrhea Melatonin 5 mg 11/13/24 22:00 11/19/24 08:26 Melatonin 5 Mg Tablet PO Not Given HS BERNARDO Morphine Sulfate 2 mg 11/20/24 00:03 11/20/24 21:24 Morphine Sulfate (*Crx) 2 Mg/Ml Inj IV PUSH 2 mg Q4H PRN Administration Pain Rated 7-10 Nicotine 1 patch 11/19/24 12:15 11/21/24 08:19 Nicotine (*Pbkc) 21 Mg Patch TRANSDERM 1 patch DAILY BERNARDO Administration Ondansetron HCl 4 mg 11/13/24 21:38 Ondansetron Hcl Odt 4 Mg Tablet PO Q4H PRN Nausea And Vomiting Oxycodone HCl 5 mg 11/13/24 21:38 Oxycodone Hcl (*Crx) 5 Mg Tab Ir PO QHS PRN Pain Rated 4-6 Pantoprazole Sodium 40 mg 11/17/24 09:00 11/21/24 08:19 Pantoprazole Sodium Iv 40 Mg Vial IV PUSH 40 mg QAM BERNARDO Administration Psyllium Hydrophilic Mucilloid 1 packet 11/13/24 22:00 Psyllium Sugar Free Powder Packet PO DAILY PRN constipation Rosuvastatin Calcium 40 mg 11/13/24 22:00 11/19/24 08:27 Rosuvastatin 20 Mg Tablet PO Not Given QHS BERNARDO Fluticasone/Salmeterol 2 puff 11/19/24 20:00 11/21/24 08:14 Fluticasone/Salmeterol 45-21 Mcg Inhaler 1 Puff INHALATION 2 puff Q12HRT [facility] Administration Senna 8.6 mg 11/13/24 21:38 Sennosides 8.6 Mg Tablet PO DAILY PRN Constipation Tamsulosin HCl 0.4 mg 11/14/24 09:00 11/19/24 08:25 Tamsulosin Hcl 0.4 Mg Capsule PO Not Given QAM [facility] Radiology Results: ITS Impressions Chest/Abdomen/Pelvis CT 11/14/24 09:27 IMPRESSION: Bilateral renal calculi. Asymmetric mural thickening of the base of the bladder for which direct visualization is recommended. Findings which may represent partial distal bowel obstruction with significant air distention of the colon just before the anastomotic staple line and distal decompression. Significant gallbladder distention with trace surrounding inflammatory change. Bibasilar atelectasis. Renal Ultrasound 11/14/24 11:43 Impression: No definite abnormality seen. Visualization of the kidneys is somewhat suboptimal related to patient body habitus. Head CT 11/14/24 18:07 IMPRESSION: No acute intracranial findings. 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 Abdomen/Pelvis CT 11/15/24 09:13 IMPRESSION: 1. Bilateral nephrolithiasis with interval advancement of a 3-4 mm at least partially obstructing stone now at the left ureterovesicular junction with mild left hydroureteronephrosis. 2. Likely intermittent/partial small bowel obstruction secondary to a volvulus with at least 360 degrees twist of the distalmost small bowel immediately proximal to ileocolic anastomosis with no interval change in mild dilation of a few loops of more proximal small bowel. 3. Prominent dilation of the gallbladder to 6.5 cm but without evident wall thickening or pericholecystic infiltrate stranding to more specifically suggest acute cholecystitis. Correlate with the right upper quadrant ultrasound or HIDA scan. 4. Very small right and trace left pleural effusions and minimal perihepatic ascites. Abdomen Ultrasound 11/15/24 09:16 IMPRESSION: Fatty infiltration of the liver. Hydropic, fluid-filled gallbladder with dependent stones suspected. Hepatobiliary Scan [facility] 11/15/24 15:34 IMPRESSION: 1. Normal hepatobiliary scan. Brain MRI 11/16/24 14:12 IMPRESSION: 1. No significant change in chronic infarcts, the largest involving the plantar to the right middle cerebral and portions of the anterior cerebral artery vascular distribution. No acute intracranial process. Chest X-Ray 11/17/24 15:19 IMPRESSION: Tip of the temporary dialysis catheter is at the cavoatrial junction. Lumbar Puncture Fluoroscopy 11/17/24 16:59 IMPRESSION: 1. Successful fluoro-guided lumbar puncture with normal opening pressure of 19 cm water. Abdomen X-Ray 11/20/24 14:45 IMPRESSION: Distended bowel loops which may indicate obstruction. Follow-up advised. Bilateral double-J stents. Enema w/Water Soluble 11/21/24 12:03 IMPRESSION: 1. Short segment of relatively narrowed small bowel immediately proximal to a pelvic ileocolic anastomosis with location and appearance of the narrowed segment consistent with 360 degrees twist in the bowel as seen on prior CT. There is however no significant secondary fixed obstruction with transient distention of the segment of bowel to a normal caliber with passage of contrast initially retrograde into the more proximal colon and subsequently antegrade during evacuation of the contrast. Labs Labs: Laboratory Results - last 24 hr 11/17/24 11/20/24 11/20/24 13:13 15:57 20:31 WBC RBC Hgb Hct MCV MCH MCHC RDW Plt Count MPV Immature Gran % (Auto) Neut % (Auto) Lymph % (Auto) Grimes % (Auto) Eos % (Auto) Baso % (Auto) Lymph # (Auto) Grimes # (Auto) Eos # (Auto) Baso # (Auto) Abs Immat Gran (auto) Absolute Neuts (auto) Absolute Nucleated RBC Nucleated RBC % Sodium Potassium Chloride Carbon Dioxide Anion Gap BUN Creatinine Estim Creat Clear Calc Estimated GFR Glucose POC Capillary Glucose 170 H 161 H Calcium Phosphorus Magnesium Total Bilirubin AST ALT Alkaline Phosphatase Total Protein Albumin CSF VDRL Non reactive 11/21/24 11/21/24 11/21/24 02:09 05:33 12:09 WBC 11.5 H RBC 3.32 L Hgb 9.3 L Hct 29.4 L MCV 88.6 MCH 28.0 MCHC 31.6 L RDW 14.7 H Plt Count 161 MPV 9.0 Immature Gran % (Auto) 4.6 H Neut % (Auto) 70.3 Lymph % (Auto) 11.6 L Grimes % (Auto) 6.9 Eos % (Auto) 5.9 H Baso % (Auto) 0.7 Lymph # (Auto) 1.33 Grimes # (Auto) 0.8 H Eos # (Auto) 0.7 H Baso # (Auto) 0.1 Abs Immat Gran (auto) 0.53 H Absolute Neuts (auto) 8.1 H Absolute Nucleated RBC 0.030 H Nucleated RBC % 0.3 H Sodium 133 L Potassium 3.7 Chloride 102 Carbon Dioxide 24 Anion Gap 7 BUN 75 H Creatinine 4.23 H Estim Creat Clear Calc 19 Estimated GFR 14 L Glucose 168 H POC Capillary Glucose 173 H 152 H Calcium 8.2 L Phosphorus 5.6 H Magnesium 2.1 Total Bilirubin 0.4 AST 20 ALT 14 Alkaline Phosphatase 88 Total Protein 5.2 L Albumin 2.5 L CSF VDRL Quality VTE Prophylaxis VTE prophylaxis: mechanical ordered
[2024-11-21] MEDS: MORPHINE SULFATE (*CRX) 2 MG/ML INJ IV PUSH (22:32)
[2024-11-21] MEDS: ARTIFICIAL TEARS OPHTH SOLN 15 ML BOTTLE 1 DROP EACH EYE (22:33)
[2024-11-22 05:35] VITALS: BP 135/62; PULSE 51; RESP 20; TEMP 36.1; O2SAT 99
[2024-11-22] MEDS: BRIMONIDINE TARTRATE 0.2% OP SOLN 5 ML BTL 1 DROP EACH EYE ×3 (06:06→21:36)
[2024-11-22] MEDS: BRINZOLAMIDE 1% OPHTH SUSP 10 ML 1 DROP EACH EYE ×3 (06:06→21:46)
[2024-11-22 06:08] LABS: Hematocrit 27.5 % (42.0-52.0); Hemoglobin 8.7 g/dL (14.0-18.0); Immature Granulocyte Percent A 4.2 % (0-0.5); Lymphocytes Absolute Auto 1.43 K/mm3 (0.9-3.2); Mean Corpuscular HGB Conc 31.6 g/dl (32-36); Mean Corpuscular Hemoglobin 27.8 pg (26-34); Mean Corpuscular Volume 87.9 fl (80-100); Nucleated Red Blood Cells Absolute Auto 0.000 K/mm3 (0.0-0.012); Nucleated Red Blood Cells Perc 0.0 % (0.0-0.2); Platelet Count Result 164 k/mm3 (150-375); Red Blood Count 3.13 M/mm3 (4.6-6.20); White Blood Count 11.1 K/mm3 (4.5-10.0)
[2024-11-22 06:28] LABS: Alanine Aminotransferase 18 U/L (6-50); Albumin Level 2.7 g/dL (3.5-5.1); Alkaline Phosphatase 111 U/L (38-126); Anion Gap 6 mmol/L (4-12); Aspartate Amino Transferase 29 U/L (17-59); Bilirubin,Total 0.4 mg/dL (0.2-1.3); Blood Urea Nitrogen 76 mg/dL (9-20); Calcium 8.4 mg/dL (8.4-10.2); Carbon Dioxide 28 mmol/L (22-30); Chloride 103 mmol/L (98-107); Estimated CRCL calculation 20 ml/min; Estimated Glomerular Filt Rate 14; Glucose 130 mg/dL (65-110); Magnesium 2.0 mg/dL (1.6-2.3); Potassium 3.8 mmol/L (3.4-5.0); Sodium 137 mmol/L (137-145); Total Protein 5.4 g/dL (6.3-8.2)
[2024-11-22] MEDS: FLUTICASONE/SALMETEROL 45-21 MCG INHALER 1 PUFF 2 PUFF INHALATION ×2 (07:27→20:47)
[2024-11-22 07:29] VITALS: O2SAT 99
[2024-11-22 08:00] VITALS: O2SAT 99
[2024-11-22 09:09] LABS: Epstein-Barr Virus RT PCR, CSF Negative (Negative)
[2024-11-22] MEDS: PANTOPRAZOLE SODIUM IV 40 MG VIAL IV PUSH (09:09)
[2024-11-22] MEDS: LIDOCAINE 5% PATCH 1 PATCH TOPICAL (09:09)
[2024-11-22] MEDS: NICOTINE (*PBKC) 21 MG PATCH 1 PATCH TRANSDERM (09:09)
--- NOTE | 2024-11-22 09:45 | PM.PNGS ---
Progress Note: A&P Assessment and Plan (1) SBO (small bowel obstruction): Code(s): K56.609 - Unspecified intestinal obstruction, unspecified as to partial versus complete obstruction Status: Acute Assessment and Plan: Hypaque enema showed a short segment of narrowed small bowel just proximal to the anastomosis without any evidence of a high-grade obstruction. Tolerating full liquids and bowels are moving. Will advance to a solid diet. Okay to resume oral medications. (2) Acute renal failure: Qualifiers: Acute renal failure type: unspecified Qualified Code(s): N17.9 - Acute kidney failure, unspecified Code(s): N17.9 - Acute kidney failure, unspecified Status: Acute Assessment and Plan: Unable to do dialysis since Wednesday apparently due to occlusion of one of the dialysis catheter lumens. Nephrology planning to attempt dialysis again today. Overall, his creatinine is improving, BUN up slightly, mentation and urine output is improving. Plan Discussed patient's case and plan of care with Dr. Daniel. Subjective Subjective Date/Time Seen: 11/22/24 09:45 Patient reports: no new complaints, tolerating liquids well (full liquids), flatus and bowel movement Interval history: Patient complains of bilateral lower extremity pain. Denies abdominal pain, nausea, or vomiting. He feels tired, but no other complaints. He had at least 1 BM yesterday after the enema and per nursing another one overnight. Exam Const: General: comfortable and no acute distress Orientation/consciousness: confusion GI: Inspection: non-distended GI Palp: Yes Soft to palpation, No Tenderness to palpation present (GI), No Guarding due to palpation present (GI) and No Rebound tenderness present Auscultation: normal bowel sounds Objective Data Vital Signs Vital Signs: Vital Signs - 24 hr 11/21/24 14:00 11/21/24 20:00 11/21/24 20:29 Temperature 97.2 F L Pulse Rate 60 53 L 55 L Respiratory Rate 15 18 16 Blood Pressure 146/60 H Pulse Oximetry 100 98 Oxygen Delivery Room Air Fraction of Inspired Oxygen 32 11/21/24 20:42 11/21/24 21:36 11/22/24 05:35 Temperature 97.7 F 97.0 F L Pulse Rate 55 L 53 L 51 L Respiratory Rate 16 18 20 Blood Pressure 127/55 L 135/62 Pulse Oximetry 96 98 99 Oxygen Delivery Room Air Fraction of Inspired Oxygen 11/22/24 07:29 11/22/24 08:00 Temperature Pulse Rate Respiratory Rate Blood Pressure Pulse Oximetry 99 99 Oxygen Delivery Room Air Room Air Fraction of Inspired Oxygen Intake/Output Intake/Output: Intake & Output 11/19/24 11/20/24 11/21/24 11/22/24 23:59 23:59 23:59 23:59 Intake Total 1931.3 3849.3 1484.7 100 Output Total 1800 2375 2150 700 Balance 131.3 1474.3 -665.3 -600 Meds/Results Medications: Active Medications Generic Name Dose Route Start Last Admin Trade Name Freq PRN Reason Stop Dose Admin Acetaminophen 650 mg 11/13/24 21:38 Acetaminophen 325 Mg Tablet PO Q8H PRN Pain Rated 1-3 Acetaminophen 325 mg 11/19/24 12:11 11/19/24 21:20 Acetaminophen 325 Mg Suppository RECTAL 325 mg Q4H PRN Administration Mild Pain (1-3) or Fever Albuterol 2 puff 11/13/24 21:38 Albuterol Sulfate (*Sp) Aerosol 1 Puff INHALATION Q4H PRN Wheezing Artificial Tears 1 drop 11/13/24 21:58 11/21/24 22:33 Artificial Tears Ophth Soln 15 Ml Bottle EACH EYE 1 drop QID PRN Administration Dry Eye(s) Aspirin 81 mg 11/14/24 09:00 11/19/24 08:24 Aspirin 81 Mg Enteric Tablet PO Not Given DAILY BERNARDO Benzonatate 100 mg 11/13/24 21:38 Benzonatate 100 Mg Capsule PO TID PRN cough Brimonidine Tartrate 1 drop 11/14/24 06:00 11/22/24 06:06 Brimonidine Tartrate 0.2% Op Soln 5 Ml Btl EACH EYE 1 drop Q8HR BERNARDO Administration Brinzolamide 1 drop 11/14/24 06:00 11/22/24 06:06 Brinzolamide 1% Ophth Susp 10 Ml EACH EYE 1 drop Q8HR BERNARDO Administration Cholestyramine Resin 4 gm 11/14/24 10:00 11/19/24 08:27 Cholestyramine (W/ Sugar) 4 Gm Powd.Pack PO Not Given 1000,1300,1800 BERNARDO Dextrose 12.5 gm 07/07/25 21:30 Dextrose 50% 25 Gm/50 Ml Syringe IV PUSH PRN PRN Hypoglycemia Protocol Escitalopram Oxalate 15 mg 11/14/24 09:00 11/19/24 08:24 Escitalopram Oxalate 5 Mg Tablet PO Not Given QAM BERNARDO Gabapentin 100 mg 11/14/24 09:00 11/19/24 08:27 Gabapentin 100 Mg Capsule PO Not Given TID BERNARDO Glucagon 1 mg 11/13/24 21:30 Glucagon For Inj 1 Mg Vial IM PRN PRN Hypoglycemia Protocol Glucose 15 gm 11/13/24 21:30 Glucose Oral Gel 15 Gm Of Glucse In 37.5 Gm Tube PO PRN PRN Hypoglycemia Protocol Guaifenesin/Dextromethorphan 10 ml 11/13/24 21:38 Guaifenesin/Dextromethorphan 10 Ml Udc PO Q4-6H PRN Cough Heparin Sodium (Porcine) 5,000 units 11/14/24 22:00 11/22/24 06:06 Heparin Sodium 5,000 Units/Ml Vial SUB-Q 5,000 units Q8HR BERNARDO Administration Dextrose 1,000 mls @ 100 mls/hr 11/13/24 21:30 Dextrose 5% 1,000 Ml IVPB PRN PRN Hypoglycemia Protocol Albumin Human 50 mls @ 999 mls/hr 11/18/24 07:10 Albutein IVPB 12/18/24 07:09 Q10M PRN HYPOTENSION Insulin Aspart 3 - 6 units 11/14/24 08:00 11/22/24 09:08 Insulin Aspart (*Bkc) 100 Units/Ml SUB-Q Not Given TIDWM BERNARDO Protocol Lidocaine 1 patch 11/14/24 09:00 11/22/24 09:09 Lidocaine 5% Patch TOPICAL 1 patch DAILY BERNARDO Administration Loperamide HCl 2 mg 11/13/24 21:38 Loperamide Hcl 2 Mg Capsule PO Q6H PRN Diarrhea Melatonin 5 mg 11/13/24 22:00 11/19/24 08:26 Melatonin 5 Mg Tablet PO Not Given HS BERNARDO Morphine Sulfate 2 mg 11/20/24 00:03 11/21/24 22:32 Morphine Sulfate (*Crx) 2 Mg/Ml Inj IV PUSH 2 mg Q4H PRN Administration Pain Rated 7-10 Nicotine 1 patch 11/19/24 12:15 11/22/24 09:09 Nicotine (*Pbkc) 21 Mg Patch TRANSDERM 1 patch DAILY BERNARDO Administration Ondansetron HCl 4 mg 11/13/24 21:38 Ondansetron Hcl Odt 4 Mg Tablet PO Q4H PRN Nausea And Vomiting Pantoprazole Sodium 40 mg 11/17/24 09:00 11/22/24 09:09 Pantoprazole Sodium Iv 40 Mg Vial IV PUSH 40 mg QAM BERNARDO Administration Psyllium Hydrophilic Mucilloid 1 packet 11/13/24 22:00 Psyllium Sugar Free Powder Packet PO DAILY PRN constipation Rosuvastatin Calcium 40 mg 11/13/24 22:00 11/19/24 08:27 Rosuvastatin 20 Mg Tablet PO Not Given QHS BERNARDO Fluticasone/Salmeterol 2 puff 11/19/24 20:00 11/22/24 07:27 Fluticasone/Salmeterol 45-21 Mcg Inhaler 1 Puff INHALATION 2 puff Q12HRT BERNARDO Administration Senna 8.6 mg 11/13/24 21:38 Sennosides 8.6 Mg Tablet PO DAILY PRN Constipation Tamsulosin HCl 0.4 mg 11/14/24 09:00 11/19/24 08:25 Tamsulosin Hcl 0.4 Mg Capsule PO Not Given QAM [facility] Radiology Results: ITS Impressions Chest/Abdomen/Pelvis CT 11/14/24 09:27 IMPRESSION: Bilateral renal calculi. Asymmetric mural thickening of the base of the bladder for which direct visualization is recommended. Findings which may represent partial distal bowel obstruction with significant air distention of the colon just before the anastomotic staple line and distal decompression. Significant gallbladder distention with trace surrounding inflammatory change. Bibasilar atelectasis. Renal Ultrasound 11/14/24 11:43 Impression: No definite abnormality seen. Visualization of the kidneys is somewhat suboptimal related to patient body habitus. Head CT 11/14/24 18:07 IMPRESSION: No acute intracranial findings. 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 Abdomen/Pelvis CT 11/15/24 09:13 IMPRESSION: 1. Bilateral nephrolithiasis with interval advancement of a 3-4 mm at least partially obstructing stone now at the left ureterovesicular junction with mild left hydroureteronephrosis. 2. Likely intermittent/partial small bowel obstruction secondary to a volvulus with at least 360 degrees twist of the distalmost small bowel immediately proximal to ileocolic anastomosis with no interval change in mild dilation of a few loops of more proximal small bowel. 3. Prominent dilation of the gallbladder to 6.5 cm but without evident wall thickening or pericholecystic infiltrate stranding to more specifically suggest acute cholecystitis. Correlate with the right upper quadrant ultrasound or HIDA scan. 4. Very small right and trace left pleural effusions and minimal perihepatic ascites. Abdomen Ultrasound 11/15/24 09:16 IMPRESSION: Fatty infiltration of the liver. Hydropic, fluid-filled gallbladder with dependent stones suspected. Hepatobiliary Scan Nuclear Medicine 11/15/24 15:34 IMPRESSION: 1. Normal hepatobiliary scan. Brain MRI 11/16/24 14:12 IMPRESSION: 1. No significant change in chronic infarcts, the largest involving the plantar to the right middle cerebral and portions of the anterior cerebral artery vascular distribution. No acute intracranial process. Chest X-Ray 11/17/24 15:19 IMPRESSION: Tip of the temporary dialysis catheter is at the cavoatrial junction. Lumbar Puncture Fluoroscopy 11/17/24 16:59 IMPRESSION: 1. Successful fluoro-guided lumbar puncture with normal opening pressure of 19 cm water. Abdomen X-Ray 11/20/24 14:45 IMPRESSION: Distended bowel loops which may indicate obstruction. Follow-up advised. Bilateral double-J stents. Enema w/Water Soluble 11/21/24 12:03 IMPRESSION: 1. Short segment of relatively narrowed small bowel immediately proximal to a pelvic ileocolic anastomosis with location and appearance of the narrowed segment consistent with 360 degrees twist in the bowel as seen on prior CT. There is however no significant secondary fixed obstruction with transient distention of the segment of bowel to a normal caliber with passage of contrast initially retrograde into the more proximal colon and subsequently antegrade during evacuation of the contrast. Labs Labs: Laboratory Results - last 24 hr 11/17/24 11/21/24 11/21/24 13:13 12:09 16:39 WBC RBC Hgb Hct MCV MCH MCHC RDW Plt Count MPV Immature Gran % (Auto) Neut % (Auto) Lymph % (Auto) [place] % (Auto) Eos % (Auto) Baso % (Auto) Lymph # (Auto) [place] # (Auto) Eos # (Auto) Baso # (Auto) Abs Immat Gran (auto) Absolute Neuts (auto) Absolute Nucleated RBC Nucleated RBC % Sodium Potassium Chloride Carbon Dioxide Anion Gap BUN Creatinine Estim Creat Clear Calc Estimated GFR Glucose POC Capillary Glucose 152 H 157 H Calcium Magnesium Total Bilirubin AST ALT Alkaline Phosphatase Total Protein Albumin CSF VDRL Non reactive CSF Lyme IgG Ab Interp Negative CSF Lyme P93 IgG Line Blot Absent CSF Lyme P66 IgG Line Blot Absent CSF Lyme P58 IgG Line Blot Absent CSF Lyme P45 IgG Line Blot Absent CSF Lyme P41 IgG Line Blot Present CSF Lyme P39 IgG Line Blot Absent CSF Lyme P30 IgG Line Blot Absent CSF Lyme P28 IgG Line Blot Absent CSF Lyme P23 IgG Line Blot Absent CSF Lyme P18 IgG Line Blot Absent CSF Lyme P41 IgM Line Blot Absent CSF Lyme P39 IgM Line Blot Absent CSF Lyme P23 IgM Line Blot Absent CSF Lyme IgM Ab Interp Negative CSF Lyme Comment Comment CSF EBV DNA (PCR) Negative 11/21/24 11/22/24 11/22/24 23:35 05:57 05:59 WBC 11.1 H RBC 3.13 L Hgb 8.7 L Hct 27.5 L MCV 87.9 MCH 27.8 MCHC 31.6 L RDW 15.0 H Plt Count 164 MPV 9.0 Immature Gran % (Auto) 4.2 H Neut % (Auto) 71.0 Lymph % (Auto) 12.9 L [place] % (Auto) 6.6 Eos % (Auto) 4.8 H Baso % (Auto) 0.5 Lymph # (Auto) 1.43 [place] # (Auto) 0.7 H Eos # (Auto) 0.5 H Baso # (Auto) 0.1 Abs Immat Gran (auto) 0.47 H Absolute Neuts (auto) 7.9 H Absolute Nucleated RBC 0.000 Nucleated RBC % 0.0 Sodium 137 Potassium 3.8 Chloride 103 Carbon Dioxide 28 Anion Gap 6 BUN 76 H Creatinine 4.21 H Estim Creat Clear Calc 20 Estimated GFR 14 L Glucose 130 H POC Capillary Glucose 151 H 128 H Calcium 8.4 Magnesium 2.0 Total Bilirubin 0.4 AST 29 ALT 18 Alkaline Phosphatase 111 Total Protein 5.4 L Albumin 2.7 L CSF VDRL CSF Lyme IgG Ab Interp CSF Lyme P93 IgG Line Blot CSF Lyme P66 IgG Line Blot CSF Lyme P58 IgG Line Blot CSF Lyme P45 IgG Line Blot CSF Lyme P41 IgG Line Blot CSF Lyme P39 IgG Line Blot CSF Lyme P30 IgG Line Blot CSF Lyme P28 IgG Line Blot CSF Lyme P23 IgG Line Blot CSF Lyme P18 IgG Line Blot CSF Lyme P41 IgM Line Blot CSF Lyme P39 IgM Line Blot CSF Lyme P23 IgM Line Blot CSF Lyme IgM Ab Interp CSF Lyme Comment CSF EBV DNA (PCR)
[2024-11-22] MEDS: MORPHINE SULFATE (*CRX) 2 MG/ML INJ IV PUSH (11:21)
--- NOTE | 2024-11-22 12:13 | P.PNIM_ITS ---
Progress Note: A&P Assessment and Plan (1) Acute renal failure: Qualifiers: Acute renal failure type: unspecified Qualified Code(s): N17.9 - Acute kidney failure, unspecified Code(s): N17.9 - Acute kidney failure, unspecified Status: Acute Assessment and Plan: -On dialysis - baseline: 1.1-1.3 - renal ultrasound unremarkable continue IVF and [place] catheter s/p cystoscopy with left ureteroscopy and stone extraction with bilateral stent Nephrology and Urology following Continue dialysis per nephrology (2) Hypotension: Qualifiers: Hypotension type: hypotension due to hypovolemia Qualified Code(s): E86.1 - Hypovolemia Code(s): I95.9 - Hypotension, unspecified Status: Resolved Assessment and Plan: resolved (3) Type 2 diabetes mellitus: Qualifiers: 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 Diabetes mellitus complication status: with hypoglycemia Diabetes mellitus complication detail: without coma Qualified Code(s): E11.649 - Type 2 diabetes mellitus with hypoglycemia without coma; Z79.4 - assisted (current) use of insulin Code(s): E11.9 - Type 2 diabetes mellitus without complications Status: Chronic Assessment and Plan: solid diet CCI with accucheks and adjust with clinical course (4) Hypertension: Qualifiers: Hypertension type: primary hypertension Qualified Code(s): I10 - Essential (primary) hypertension Code(s): I10 - Essential (primary) hypertension Status: Chronic Assessment and Plan: titrate home meds with clinical course Plan Bryce Cr 4.21 On HD plan for HD today Partial SBO CT AP reviewed NG has been clamped. plan for contrast enema today. started on clear liquid diet and NG removed 11/21/24 will advance diet Contrast enema per Gen surgery Gen surgery following monitor Gall bladder distension Rule out Acute cholecystitis CT AP reviewed HIDA scan normal discontinued Rocephin and Metronidazole Blood culture Hydrops Gallbladder US abd reviewed Gen surgery following AMS, resolved from uremia, resolving with dialysis CT head no acute changes MRI brain, EEG moderate diffuse background slowing Ammonia <9 LP done, and CSF studies negative for meningitis Neurology eval noted mildly obstructing left ureteral calculus and right renal stones S/P Cystoscopy, bilateral retrogrades, left ureteroscopy, stone extraction, bilateral ureteral stent placement urology team on board Diet: heart healthy DVT Prophylaxis: Sq Heparin Code Status: DNR Subjective Date/time seen: 11/22/24 12:13 Interval history: per HPI: 69 y/o M with PMH of CVA, CAD, BPH, COPD, JAMES intolerant of CPAP, DM, and HTN presents here with generalized weakness. The patient presents here [facility] on 11/13 for further evaluation of generalized weakness. The patient reports he has had generalized weakness for the past week. It is accompanied by poor appetite and poor PO intake. WI reported the patient has been having hypoglycemic events, occurred most recently yesterday. Patient is unsure how low his glucose levels were and has poor memory of events yesterday. He denies accompanying abdominal pain, chest pain, shortness of breath, dysuria, difficulty urinating, fever, and chills. He does endorse a mild headache and pain in his right shoulder that has been chronic since his CVA. Initial VS at presentation: 97.4? F, HR 49, R 12, 107/40, and 94% on 4L NC. ED workup showed: WBC 10.4, hemoglobin 12.3 (at baseline), normal coags, creatinine 5.43 and GFR 11 (1.13 and GFR >60 on 07/12/2024), glucose 90, lactic 0.8, CRP 2.8. CXR showed no focal consolidation, mild perihilar bronchial wall thickening a finding suggestive of respiratory bronchiolitis. 11/21/24 Patient was seen and ermined at bedside. he is feeling better. his abd pain improved. denies chest pain,SOb,N/V. has been diagnosed with SBO. NG has been clamped. plan for contrast enema today. started on clear liquid diet and NG removed Acute encephalopathy improved Bryce. on HD. has nephrology team on board 11/22/24 Patient was seen and examined at bedside. he is feeling better. he is tolerating diet, will advance diet. BRYCE stable. plan for possible HD today. nephrology and surgery team on board Review of Systems Review of Systems: All systems reviewed & are unremarkable except as noted in HPI and below Exam Const: General: comfortable and no acute distress Other: Alert and Oriented x2, obese and comfortable HENMT: Face/Nose/Sinus: Normal nares present Mouth: Yes dry mucous membranes Eyes: General: appearance normal, both eyes and all related structures Sclera: sclerae normal Pupils: Equal, round and reactive pupils present EOM: EOMs intact bilaterally Resp: Effort & Inspection: normal respiratory effort Auscultation: clear to auscultation bilaterally Cardio: Rate: regular rate Rhythm: regular rhythm Other: S1-S2 present without murmur, rub, ectopy GI: Other: Abdomen soft, nondistended, nontender. quiet but normoactive bowel sounds in all quadrants. Skin: General skin exam: normal color Other: skin tear to the left upper extremity, Steri-Stripped. No active bleeding. Various areas of ecchymosis to bilateral upper extremities, no particular pattern. In various stages of healing. Neuro: Cranial nerves: Yes Equal, round and reactive pupils present Speech: normal speech Motor exam (neuro): 5/5 motor strength present throughout Sensory Exam: normal sensation Other: A&O x3 Extrem: General: normal to inspection Psych: Mental Status: mental status grossly normal Affect: normal affect Other: fair insight and judgment. Objective Data Vital Signs Vital Signs: Vital Signs - 24 hr 11/21/24 14:00 11/21/24 20:00 11/21/24 20:29 Temperature 97.2 F L Pulse Rate 60 53 L 55 L Respiratory Rate 15 18 16 Blood Pressure 146/60 H Pulse Oximetry 100 98 Oxygen Delivery Room Air Fraction of Inspired Oxygen 32 11/21/24 20:42 11/21/24 21:36 11/22/24 05:35 Temperature 97.7 F 97.0 F L Pulse Rate 55 L 53 L 51 L Respiratory Rate 16 18 20 Blood Pressure 127/55 L 135/62 Pulse Oximetry 96 98 99 Oxygen Delivery Room Air Fraction of Inspired Oxygen 11/22/24 07:29 11/22/24 08:00 Temperature Pulse Rate Respiratory Rate Blood Pressure Pulse Oximetry 99 99 Oxygen Delivery Room Air Room Air Fraction of Inspired Oxygen Intake/Output Intake/Output: Intake & Output 11/19/24 11/20/24 11/21/24 11/22/24 23:59 23:59 23:59 23:59 Intake Total 1931.3 3849.3 1484.7 220 Output Total 1800 2375 2150 700 Balance 131.3 1474.3 -665.3 -480 Meds/Results Medications: Active Medications Generic Name Dose Route Start Last Admin Trade Name Freq PRN Reason Stop Dose Admin Acetaminophen 650 mg 11/13/24 21:38 Acetaminophen 325 Mg Tablet PO Q8H PRN Pain Rated 1-3 Acetaminophen 325 mg 11/19/24 12:11 11/19/24 21:20 Acetaminophen 325 Mg Suppository RECTAL 325 mg Q4H PRN Administration Mild Pain (1-3) or Fever Albuterol 2 puff 11/13/24 21:38 Albuterol Sulfate (*Sp) Aerosol 1 Puff INHALATION Q4H PRN Wheezing Artificial Tears 1 drop 11/13/24 21:58 11/21/24 22:33 Artificial Tears Ophth Soln 15 Ml Bottle EACH EYE 1 drop QID PRN Administration Dry Eye(s) Aspirin 81 mg 11/14/24 09:00 11/19/24 08:24 Aspirin 81 Mg Enteric Tablet PO Not Given DAILY BERNARDO Benzonatate 100 mg 11/13/24 21:38 Benzonatate 100 Mg Capsule PO TID PRN cough Brimonidine Tartrate 1 drop 11/14/24 06:00 11/22/24 06:06 Brimonidine Tartrate 0.2% Op Soln 5 Ml Btl EACH EYE 1 drop Q8HR BERNARDO Administration Brinzolamide 1 drop 11/14/24 06:00 11/22/24 06:06 Brinzolamide 1% Ophth Susp 10 Ml EACH EYE 1 drop Q8HR BERNARDO Administration Cholestyramine Resin 4 gm 11/14/24 10:00 11/19/24 08:27 Cholestyramine (W/ Sugar) 4 Gm Powd.Pack PO Not Given 1000,1300,1800 BERNARDO Dextrose 12.5 gm 11/13/24 21:30 Dextrose 50% 25 Gm/50 Ml Syringe IV PUSH PRN PRN Hypoglycemia Protocol Escitalopram Oxalate 15 mg 11/14/24 09:00 11/19/24 08:24 Escitalopram Oxalate 5 Mg Tablet PO Not Given QAM BERNARDO Gabapentin 100 mg 11/14/24 09:00 11/19/24 08:27 Gabapentin 100 Mg Capsule PO Not Given TID BERNARDO Glucagon 1 mg 11/13/24 21:30 Glucagon For Inj 1 Mg Vial IM PRN PRN Hypoglycemia Protocol Glucose 15 gm 11/13/24 21:30 Glucose Oral Gel 15 Gm Of Glucse In 37.5 Gm Tube PO PRN PRN Hypoglycemia Protocol Guaifenesin/Dextromethorphan 10 ml 11/13/24 21:38 Guaifenesin/Dextromethorphan 10 Ml Udc PO Q4-6H PRN Cough Heparin Sodium (Porcine) 5,000 units 11/14/24 22:00 11/22/24 06:06 Heparin Sodium 5,000 Units/Ml Vial SUB-Q 5,000 units Q8HR BERNARDO Administration Dextrose 1,000 mls @ 100 mls/hr 11/13/24 21:30 Dextrose 5% 1,000 Ml IVPB PRN PRN Hypoglycemia Protocol Albumin Human 50 mls @ 999 mls/hr 11/18/24 07:10 Albutein IVPB 12/18/24 07:09 Q10M PRN HYPOTENSION Insulin Aspart 3 - 6 units 11/14/24 08:00 11/22/24 09:08 Insulin Aspart (*Bkc) 100 Units/Ml SUB-Q Not Given TIDWM BERNARDO Protocol Lidocaine 1 patch 11/14/24 09:00 11/22/24 09:09 Lidocaine 5% Patch TOPICAL 1 patch DAILY BERNARDO Administration Loperamide HCl 2 mg 11/13/24 21:38 Loperamide Hcl 2 Mg Capsule PO Q6H PRN Diarrhea Melatonin 5 mg 11/13/24 22:00 11/19/24 08:26 Melatonin 5 Mg Tablet PO Not Given HS BERNARDO Morphine Sulfate 2 mg 11/20/24 00:03 11/22/24 11:21 Morphine Sulfate (*Crx) 2 Mg/Ml Inj IV PUSH 2 mg Q4H PRN Administration Pain Rated 7-10 Nicotine 1 patch 11/19/24 12:15 11/22/24 09:09 Nicotine (*Pbkc) 21 Mg Patch TRANSDERM 1 patch DAILY BERNARDO Administration Ondansetron HCl 4 mg 11/13/24 21:38 Ondansetron Hcl Odt 4 Mg Tablet PO Q4H PRN Nausea And Vomiting Pantoprazole Sodium 40 mg 11/17/24 09:00 11/22/24 09:09 Pantoprazole Sodium Iv 40 Mg Vial IV PUSH 40 mg QAM BERNARDO Administration Psyllium Hydrophilic Mucilloid 1 packet 11/13/24 22:00 Psyllium Sugar Free Powder Packet PO DAILY PRN constipation Rosuvastatin Calcium 40 mg 11/13/24 22:00 11/19/24 08:27 Rosuvastatin 20 Mg Tablet PO Not Given QHS BERNARDO Fluticasone/Salmeterol 2 puff 11/19/24 20:00 11/22/24 07:27 Fluticasone/Salmeterol 45-21 Mcg Inhaler 1 Puff INHALATION 2 puff Q12HRT BERNARDO Administration Senna 8.6 mg 11/13/24 21:38 Sennosides 8.6 Mg Tablet PO DAILY PRN Constipation Tamsulosin HCl 0.4 mg 11/14/24 09:00 11/19/24 08:25 Tamsulosin Hcl 0.4 Mg Capsule PO Not Given QAM [facility] Radiology Results: ITS Impressions Chest/Abdomen/Pelvis CT 11/14/24 09:27 IMPRESSION: Bilateral renal calculi. Asymmetric mural thickening of the base of the bladder for which direct visualization is recommended. Findings which may represent partial distal bowel obstruction with significant air distention of the colon just before the anastomotic staple line and distal decompression. Significant gallbladder distention with trace surrounding inflammatory change. Bibasilar atelectasis. Renal Ultrasound 11/14/24 11:43 Impression: No definite abnormality seen. Visualization of the kidneys is somewhat suboptimal related to patient body habitus. Head CT 11/14/24 18:07 IMPRESSION: No acute intracranial findings. 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 Abdomen/Pelvis CT 11/15/24 09:13 IMPRESSION: 1. Bilateral nephrolithiasis with interval advancement of a 3-4 mm at least partially obstructing stone now at the left ureterovesicular junction with mild left hydroureteronephrosis. 2. Likely intermittent/partial small bowel obstruction secondary to a volvulus with at least 360 degrees twist of the distalmost small bowel immediately proximal to ileocolic anastomosis with no interval change in mild dilation of a few loops of more proximal small bowel. 3. Prominent dilation of the gallbladder to 6.5 cm but without evident wall thickening or pericholecystic infiltrate stranding to more specifically suggest acute cholecystitis. Correlate with the right upper quadrant ultrasound or HIDA scan. 4. Very small right and trace left pleural effusions and minimal perihepatic ascites. Abdomen Ultrasound 11/15/24 09:16 IMPRESSION: Fatty infiltration of the liver. Hydropic, fluid-filled gallbladder with dependent stones suspected. Hepatobiliary Scan Nuclear Medicine 11/15/24 15:34 IMPRESSION: 1. Normal hepatobiliary scan. Brain MRI 11/16/24 14:12 IMPRESSION: 1. No significant change in chronic infarcts, the largest involving the plantar to the right middle cerebral and portions of the anterior cerebral artery vascular distribution. No acute intracranial process. Chest X-Ray 11/17/24 15:19 IMPRESSION: Tip of the temporary dialysis catheter is at the cavoatrial junction. Lumbar Puncture Fluoroscopy 11/17/24 16:59 IMPRESSION: 1. Successful fluoro-guided lumbar puncture with normal opening pressure of 19 cm water. Abdomen X-Ray 11/20/24 14:45 IMPRESSION: Distended bowel loops which may indicate obstruction. Follow-up advised. Bilateral double-J stents. Enema w/Water Soluble 11/21/24 12:03 IMPRESSION: 1. Short segment of relatively narrowed small bowel immediately proximal to a pelvic ileocolic anastomosis with location and appearance of the narrowed segment consistent with 360 degrees twist in the bowel as seen on prior CT. There is however no significant secondary fixed obstruction with transient distention of the segment of bowel to a normal caliber with passage of contrast initially retrograde into the more proximal colon and subsequently antegrade during evacuation of the contrast. Labs Labs: Laboratory Results - last 24 hr 11/17/24 11/21/24 11/21/24 13:13 12:09 16:39 WBC RBC Hgb Hct MCV MCH MCHC RDW Plt Count MPV Immature Gran % (Auto) Neut % (Auto) Lymph % (Auto) Greer % (Auto) Eos % (Auto) Baso % (Auto) Lymph # (Auto) Greer # (Auto) Eos # (Auto) Baso # (Auto) Abs Immat Gran (auto) Absolute Neuts (auto) Absolute Nucleated RBC Nucleated RBC % Sodium Potassium Chloride Carbon Dioxide Anion Gap BUN Creatinine Estim Creat Clear Calc Estimated GFR Glucose POC Capillary Glucose 152 H 157 H Calcium Magnesium Total Bilirubin AST ALT Alkaline Phosphatase Total Protein Albumin CSF VDRL Non reactive CSF Lyme IgG Ab Interp Negative CSF Lyme P93 IgG Line Blot Absent CSF Lyme P66 IgG Line Blot Absent CSF Lyme P58 IgG Line Blot Absent CSF Lyme P45 IgG Line Blot Absent CSF Lyme P41 IgG Line Blot Present CSF Lyme P39 IgG Line Blot Absent CSF Lyme P30 IgG Line Blot Absent CSF Lyme P28 IgG Line Blot Absent CSF Lyme P23 IgG Line Blot Absent CSF Lyme P18 IgG Line Blot Absent CSF Lyme P41 IgM Line Blot Absent CSF Lyme P39 IgM Line Blot Absent CSF Lyme P23 IgM Line Blot Absent CSF Lyme IgM Ab Interp Negative CSF Lyme Comment Comment CSF EBV DNA (PCR) Negative 11/21/24 11/22/24 11/22/24 23:35 05:57 05:59 WBC 11.1 H RBC 3.13 L Hgb 8.7 L Hct 27.5 L MCV 87.9 MCH 27.8 MCHC 31.6 L RDW 15.0 H Plt Count 164 MPV 9.0 Immature Gran % (Auto) 4.2 H Neut % (Auto) 71.0 Lymph % (Auto) 12.9 L Greer % (Auto) 6.6 Eos % (Auto) 4.8 H Baso % (Auto) 0.5 Lymph # (Auto) 1.43 Greer # (Auto) 0.7 H Eos # (Auto) 0.5 H Baso # (Auto) 0.1 Abs Immat Gran (auto) 0.47 H Absolute Neuts (auto) 7.9 H Absolute Nucleated RBC 0.000 Nucleated RBC % 0.0 Sodium 137 Potassium 3.8 Chloride 103 Carbon Dioxide 28 Anion Gap 6 BUN 76 H Creatinine 4.21 H Estim Creat Clear Calc 20 Estimated GFR 14 L Glucose 130 H POC Capillary Glucose 151 H 128 H Calcium 8.4 Magnesium 2.0 Total Bilirubin 0.4 AST 29 ALT 18 Alkaline Phosphatase 111 Total Protein 5.4 L Albumin 2.7 L CSF VDRL CSF Lyme IgG Ab Interp CSF Lyme P93 IgG Line Blot CSF Lyme P66 IgG Line Blot CSF Lyme P58 IgG Line Blot CSF Lyme P45 IgG Line Blot CSF Lyme P41 IgG Line Blot CSF Lyme P39 IgG Line Blot CSF Lyme P30 IgG Line Blot CSF Lyme P28 IgG Line Blot CSF Lyme P23 IgG Line Blot CSF Lyme P18 IgG Line Blot CSF Lyme P41 IgM Line Blot CSF Lyme P39 IgM Line Blot CSF Lyme P23 IgM Line Blot CSF Lyme IgM Ab Interp CSF Lyme Comment CSF EBV DNA (PCR) 11/22/24 12:06 WBC RBC Hgb Hct MCV MCH MCHC RDW Plt Count MPV Immature Gran % (Auto) Neut % (Auto) Lymph % (Auto) Greer % (Auto) Eos % (Auto) Baso % (Auto) Lymph # (Auto) Greer # (Auto) Eos # (Auto) Baso # (Auto) Abs Immat Gran (auto) Absolute Neuts (auto) Absolute Nucleated RBC Nucleated RBC % Sodium Potassium Chloride Carbon Dioxide Anion Gap BUN Creatinine Estim Creat Clear Calc Estimated GFR Glucose POC Capillary Glucose 149 H Calcium Magnesium Total Bilirubin AST ALT Alkaline Phosphatase Total Protein Albumin CSF VDRL CSF Lyme IgG Ab Interp CSF Lyme P93 IgG Line Blot CSF Lyme P66 IgG Line Blot CSF Lyme P58 IgG Line Blot CSF Lyme P45 IgG Line Blot CSF Lyme P41 IgG Line Blot CSF Lyme P39 IgG Line Blot CSF Lyme P30 IgG Line Blot CSF Lyme P28 IgG Line Blot CSF Lyme P23 IgG Line Blot CSF Lyme P18 IgG Line Blot CSF Lyme P41 IgM Line Blot CSF Lyme P39 IgM Line Blot CSF Lyme P23 IgM Line Blot CSF Lyme IgM Ab Interp CSF Lyme Comment CSF EBV DNA (PCR) Quality VTE Prophylaxis VTE prophylaxis: mechanical ordered
--- NOTE | 2024-11-22 12:31 | P.PNNP_ITS ---
Progress Note: A&P Assessment and Plan (1) Acute kidney injury: Code(s): N17.9 - Acute kidney failure, unspecified Status: Acute Assessment and Plan: * relatively stable * baseline creatinine seems to run ~ 1.1 - 1.3mg/dl * creatinine 1.13mg/dl in July 2024 * suspect multifactorial etiology: * prerenal factors * hypotension/hemodynamic instability * urinary retention/obstruction * infection (gallbladder?) * other(?) * evaluation to date noted: * urine electrolytes prerenal * rare urine eosinophils -- possible AIN? (however, no rash or peripheral eosinophilia) * CPK mildly elevated (but not enough to affect kidney function) * mild proteinuria * UA without evidence of infection * renal ultrasound negative (but limited due to body habitus) * HD on 11/17 and 11/18 * holding HD for now * follow trend of repeat labs and UOP for potential recovery (2) Altered mental status: Code(s): R41.82 - Altered mental status, unspecified Status: Acute Assessment and Plan: * resolved * as noted since 11/15 * etiology?? -- related to renal failure?? * Neurology recommendations noted * MRI of brain noted * s/p lumbar puncture - CSF studies noted * follow mentation (3) SBO (small bowel obstruction): Code(s): K56.609 - Unspecified intestinal obstruction, unspecified as to partial versus complete obstruction Status: Acute Assessment and Plan: * admission CT demonstrated findings which may represent partial distal bowel obstruction with significant air distention of the colon just before the and anastomotic staple line and distal decompression * repeat CT scan noted as well * NG tube out * Surgery following with recommendations noted * tolerating oral intake at this itme * follow repeat imaging * continue supportive therapy (4) Dilated gallbladder: Code(s): K82.8 - Other specified diseases of gallbladder Status: Acute Assessment and Plan: * admission CT demonstrated significant gallbladder distention with trace surrounding inflammatory change * repeat CT scan noted as well * normal LFTs * abdominal exam positive for diffuse tenderness to palpation (but unreliable given AMS) * no nausea or vomiting * HIDA scan results noted * Surgery following (5) Bilateral nephrolithiasis: Code(s): N20.0 - Calculus of kidney Status: Acute Assessment and Plan: * admission and repeat CT scan noted/reviewed * Urology recommendations noted * s/p cystoscopy, stone extraction, bilateral ureteral stent placement (on 11/16) * continue supportive therapy (6) Anemia: Code(s): D64.9 - Anemia, unspecified Status: Acute Assessment and Plan: * related to BRYCE and acute illness * follow trend of H/H (7) Hypertension: Qualifiers: Hypertension type: primary hypertension Qualified Code(s): I10 - Essential (primary) hypertension Code(s): I10 - Essential (primary) hypertension Status: Chronic Assessment and Plan: * slowly resume home BP medications * initially hypotensive on admission * follow trend of hemodynamics (8) Type 2 diabetes mellitus: Qualifiers: Diabetes mellitus terminologist insulin use: with chcf use Diabetes mellitus complication status: with hypoglycemia Diabetes mellitus complication detail: without coma Qualified Code(s): E11.649 - Type 2 diabetes mellitus with hypoglycemia without coma; Z79.4 - detention (current) use of insulin Code(s): E11.9 - Type 2 diabetes mellitus without complications Status: Chronic Assessment and Plan: * issues with hypoglyemia prior to admission noted * follow accu-cheks * glycemic control per hospitalist Will continue to follow. L Subjective Date/time seen: 11/22/24 12:31 Interval history: Follow-up for acute kidney injury/acute renal failure. No apparent distress noted at the time of my visit; renal function/creatinine relatively stable (not worse but not better) with good urine output noted; tolerating oral intake reasonably well (eating lunch when seen); mentation seems back to baseline; no other acute issues or problems voiced other than he want to smoke to help his anxiety. Exam 2 Narrative: General: large but ill-appearing male in NAD Heart: normal S1 and S2; no rub Lungs: clear anteriorly Abdomen: obese with positive bowel sounds Extremities: no cyanosis or clubbing; trace edema Skin: no nodules Objective Data Vital Signs Vital Signs: Vital Signs Temp Pulse Resp BP Pulse Ox O2 Del Method FiO2 11/22/24 11:45 97.2 F L 51 L 16 143/69 H 98 11/22/24 08:00 99 Room Air 11/22/24 07:29 99 Room Air 11/22/24 05:35 97.0 F L 51 L 20 135/62 99 11/21/24 21:36 97.7 F 53 L 18 127/55 L 98 11/21/24 20:42 55 L 16 96 Room Air 11/21/24 20:29 55 L 16 11/21/24 20:00 53 L 18 98 Room Air 32 Intake/Output Intake/Output: Intake & Output 11/19/24 11/20/24 11/21/24 11/22/24 23:59 23:59 23:59 23:59 Intake Total 1931.3 3849.3 1484.7 320 Output Total 1800 2375 2150 1400 Balance 131.3 1474.3 -665.3 -1080 Meds/Results Medications: Active Medications Generic Name Dose Route Start Last Admin Trade Name Freq PRN Reason Stop Dose Admin Acetaminophen 650 mg 11/13/24 21:38 Acetaminophen 325 Mg Tablet PO Q8H PRN Pain Rated 1-3 Acetaminophen 325 mg 11/19/24 12:11 11/19/24 21:20 Acetaminophen 325 Mg Suppository RECTAL 325 mg Q4H PRN Administration Mild Pain (1-3) or Fever Albuterol 2 puff 11/13/24 21:38 Albuterol Sulfate (*Sp) Aerosol 1 Puff INHALATION Q4H PRN Wheezing Artificial Tears 1 drop 11/13/24 21:58 11/21/24 22:33 Artificial Tears Ophth Soln 15 Ml Bottle EACH EYE 1 drop QID PRN Administration Dry Eye(s) Aspirin 81 mg 11/14/24 09:00 11/19/24 08:24 Aspirin 81 Mg Enteric Tablet PO Not Given DAILY B[facility]ARDO Benzonatate 100 mg 11/13/24 21:38 Benzonatate 100 Mg Capsule PO TID PRN cough Brimonidine Tartrate 1 drop 11/14/24 06:00 11/22/24 13:20 Brimonidine Tartrate 0.2% Op Soln 5 Ml Btl EACH EYE 1 drop Q8HR [facility]ARDO Administration Brinzolamide 1 drop 11/14/24 06:00 11/22/24 13:21 Brinzolamide 1% Ophth Susp 10 Ml EACH EYE 1 drop Q8HR [facility]O Administration Cholestyramine Resin 4 gm 11/14/24 10:00 11/19/24 08:27 Cholestyramine (W/ Sugar) 4 Gm Powd.Pack PO Not Given 1000,1300,1800 B[facility]ARDO Dextrose 12.5 gm 11/13/24 21:30 Dextrose 50% 25 Gm/50 Ml Syringe IV PUSH PRN PRN Hypoglycemia Protocol Escitalopram Oxalate 15 mg 11/14/24 09:00 11/19/24 08:24 Escitalopram Oxalate 5 Mg Tablet PO Not Given QAM [facility] Gabapentin 100 mg 11/14/24 09:00 11/19/24 08:27 Gabapentin 100 Mg Capsule PO Not Given TID [facility]ARDO Glucagon 1 mg 11/13/24 21:30 Glucagon For Inj 1 Mg Vial IM PRN PRN Hypoglycemia Protocol Glucose 15 gm 11/13/24 21:30 Glucose Oral Gel 15 Gm Of Glucse In 37.5 Gm Tube PO PRN PRN Hypoglycemia Protocol Guaifenesin/Dextromethorphan 10 ml 11/13/24 21:38 Guaifenesin/Dextromethorphan 10 Ml Udc PO Q4-6H PRN Cough Heparin Sodium (Porcine) 5,000 units 11/14/24 22:00 11/22/24 13:20 Heparin Sodium 5,000 Units/Ml Vial SUB-Q 5,000 units Q8HR [facility]ARDO Administration Dextrose 1,000 mls @ 100 mls/hr 11/13/24 21:30 Dextrose 5% 1,000 Ml IVPB PRN PRN Hypoglycemia Protocol Albumin Human 50 mls @ 999 mls/hr 11/18/24 07:10 Albutein IVPB 12/18/24 07:09 Q10M PRN HYPOTENSION Insulin Aspart 3 - 6 units 11/14/24 08:00 11/22/24 12:28 Insulin Aspart (*Bkc) 100 Units/Ml SUB-Q Not Given TIDWM [facility] Protocol Lidocaine 1 patch 11/14/24 09:00 11/22/24 09:09 Lidocaine 5% Patch TOPICAL 1 patch DAILY BERNARDO Administration Loperamide HCl 2 mg 11/13/24 21:38 Loperamide Hcl 2 Mg Capsule PO Q6H PRN Diarrhea Melatonin 5 mg 11/13/24 22:00 11/19/24 08:26 Melatonin 5 Mg Tablet PO Not Given HS [facility]ERNARDO Morphine Sulfate 2 mg 11/20/24 00:03 11/22/24 11:21 Morphine Sulfate (*Crx) 2 Mg/Ml Inj IV PUSH 2 mg Q4H PRN Administration Pain Rated 7-10 Nicotine 1 patch 11/19/24 12:15 11/22/24 09:09 Nicotine (*Pbkc) 21 Mg Patch TRANSDERM 1 patch DAILY BERNARDO Administration Ondansetron HCl 4 mg 11/13/24 21:38 Ondansetron Hcl Odt 4 Mg Tablet PO Q4H PRN Nausea And Vomiting Pantoprazole Sodium 40 mg 11/17/24 09:00 11/22/24 09:09 Pantoprazole Sodium Iv 40 Mg Vial IV PUSH 40 mg QAM [facility] Administration Psyllium Hydrophilic Mucilloid 1 packet 11/13/24 22:00 Psyllium Sugar Free Powder Packet PO DAILY PRN constipation Rosuvastatin Calcium 40 mg 11/13/24 22:00 11/19/24 08:27 Rosuvastatin 20 Mg Tablet PO Not Given QHS [facility]O Fluticasone/Salmeterol 2 puff 11/19/24 20:00 11/22/24 07:27 Fluticasone/Salmeterol 45-21 Mcg Inhaler 1 Puff INHALATION 2 puff Q12HRT [facility] Administration Senna 8.6 mg 11/13/24 21:38 Sennosides 8.6 Mg Tablet PO DAILY PRN Constipation Tamsulosin HCl 0.4 mg 11/14/24 09:00 11/19/24 08:25 Tamsulosin Hcl 0.4 Mg Capsule PO Not Given QAM [facility] Radiology Results: ITS Impressions Chest/Abdomen/Pelvis CT 11/14/24 09:27 IMPRESSION: Bilateral renal calculi. Asymmetric mural thickening of the base of the bladder for which direct visualization is recommended. Findings which may represent partial distal bowel obstruction with significant air distention of the colon just before the anastomotic staple line and distal decompression. Significant gallbladder distention with trace surrounding inflammatory change. Bibasilar atelectasis. Renal Ultrasound 11/14/24 11:43 Impression: No definite abnormality seen. Visualization of the kidneys is somewhat suboptimal related to patient body habitus. Head CT 11/14/24 18:07 IMPRESSION: No acute intracranial findings. 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 Abdomen/Pelvis CT 11/15/24 09:13 IMPRESSION: 1. Bilateral nephrolithiasis with interval advancement of a 3-4 mm at least partially obstructing stone now at the left ureterovesicular junction with mild left hydroureteronephrosis. 2. Likely intermittent/partial small bowel obstruction secondary to a volvulus with at least 360 degrees twist of the distalmost small bowel immediately proximal to ileocolic anastomosis with no interval change in mild dilation of a few loops of more proximal small bowel. 3. Prominent dilation of the gallbladder to 6.5 cm but without evident wall thickening or pericholecystic infiltrate stranding to more specifically suggest acute cholecystitis. Correlate with the right upper quadrant ultrasound or HIDA scan. 4. Very small right and trace left pleural effusions and minimal perihepatic ascites. Abdomen Ultrasound 11/15/24 09:16 IMPRESSION: Fatty infiltration of the liver. Hydropic, fluid-filled gallbladder with dependent stones suspected. Hepatobiliary Scan Nuclear Medicine 11/15/24 15:34 IMPRESSION: 1. Normal hepatobiliary scan. Brain MRI 11/16/24 14:12 IMPRESSION: 1. No significant change in chronic infarcts, the largest involving the plantar to the right middle cerebral and portions of the anterior cerebral artery vascular distribution. No acute intracranial process. Chest X-Ray 11/17/24 15:19 IMPRESSION: Tip of the temporary dialysis catheter is at the cavoatrial junction. Lumbar Puncture Fluoroscopy 11/17/24 16:59 IMPRESSION: 1. Successful fluoro-guided lumbar puncture with normal opening pressure of 19 cm water. Abdomen X-Ray 11/20/24 14:45 IMPRESSION: Distended bowel loops which may indicate obstruction. Follow-up advised. Bilateral double-J stents. Enema w/Water Soluble 11/21/24 12:03 IMPRESSION: 1. Short segment of relatively narrowed small bowel immediately proximal to a pelvic ileocolic anastomosis with location and appearance of the narrowed segment consistent with 360 degrees twist in the bowel as seen on prior CT. There is however no significant secondary fixed obstruction with transient distention of the segment of bowel to a normal caliber with passage of contrast initially retrograde into the more proximal colon and subsequently antegrade during evacuation of the contrast. Labs Labs: Laboratory Tests 11/22/24 05:59 11/22/24 05:59 Calcium 8.4 Magnesium 2.0 Total Bilirubin 0.4 AST 29 ALT 18 Alkaline Phosphatase 111 Total Protein 5.4 L Albumin 2.7 L Microbiology 11/17/24 13:13 Cerebral Spinal Fluid Sterile Body Fluid Culture - Final
[2024-11-22 14:45] VITALS: BP 143/69; PULSE 51; RESP 16; TEMP 36.2; O2SAT 98
[2024-11-22 20:52] VITALS: O2SAT 98
[2024-11-22 21:46] VITALS: BP 148/61; PULSE 78; RESP 20; TEMP 36.3; O2SAT 98
--- NOTE | 2024-11-23 05:13 | PC.NURSE ---
In room with PCT to turn and clean Pt. up if needed. Pt. had had a BM and we informed him that we would be cleaning him up as he had a BM. Pt. stated 'I don't need cleaned up.' Informed Pt. [id number] of what we were doing, that we were going to turn him as we cannot let him lay in stool, which can irritate his skin. Pt. REFUSED to turn, stating 'I don't want to turn on my side.' This nurse and PCT re-enforced to Pt. the need to change his bed pad and clean up stool. Informed Pt. each time we were moving his left side (as Pt. 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 Pt. yelled at staff and called them 'witches'. Pt. states 'if you move or touch my left leg, I'm going to kick you'. Pt. continued to yell at staff while we were providing care, cleaning up BM, and repositioning Pt.
[2024-11-23 05:54] VITALS: BP 160/61; PULSE 54; RESP 20; TEMP 36.3; O2SAT 97
[2024-11-23] MEDS: BRIMONIDINE TARTRATE 0.2% OP SOLN 5 ML BTL 1 DROP EACH EYE ×3 (06:40→20:45)
[2024-11-23 06:43] LABS: Hematocrit 27.5 % (42.0-52.0); Hemoglobin 8.7 g/dL (14.0-18.0); Immature Granulocyte Percent A 3.0 % (0-0.5); Lymphocytes Absolute Auto 1.24 K/mm3 (0.9-3.2); Mean Corpuscular HGB Conc 31.6 g/dl (32-36); Mean Corpuscular Hemoglobin 28.3 pg (26-34); Mean Corpuscular Volume 89.6 fl (80-100); Nucleated Red Blood Cells Absolute Auto 0.000 K/mm3 (0.0-0.012); Nucleated Red Blood Cells Perc 0.0 % (0.0-0.2); Platelet Count Result 165 k/mm3 (150-375); Red Blood Count 3.07 M/mm3 (4.6-6.20); White Blood Count 10.6 K/mm3 (4.5-10.0)
[2024-11-23] MEDS: BRINZOLAMIDE 1% OPHTH SUSP 10 ML 1 DROP EACH EYE ×3 (06:44→20:46)
[2024-11-23 07:04] LABS: Alanine Aminotransferase 24 U/L (6-50); Albumin Level 2.7 g/dL (3.5-5.1); Alkaline Phosphatase 135 U/L (38-126); Anion Gap 6 mmol/L (4-12); Aspartate Amino Transferase 35 U/L (17-59); Bilirubin,Total 0.5 mg/dL (0.2-1.3); Blood Urea Nitrogen 73 mg/dL (9-20); Calcium 8.5 mg/dL (8.4-10.2); Carbon Dioxide 28 mmol/L (22-30); Chloride 104 mmol/L (98-107); Estimated CRCL calculation 20 ml/min; Estimated Glomerular Filt Rate 15; Glucose 132 mg/dL (65-110); Magnesium 1.8 mg/dL (1.6-2.3); Potassium 3.9 mmol/L (3.4-5.0); Sodium 138 mmol/L (137-145); Total Protein 5.5 g/dL (6.3-8.2)
[2024-11-23 08:35] VITALS: O2SAT 98
[2024-11-23] MEDS: FLUTICASONE/SALMETEROL 45-21 MCG INHALER 1 PUFF 2 PUFF INHALATION ×2 (08:37→19:47)
[2024-11-23] MEDS: NICOTINE (*PBKC) 21 MG PATCH 1 PATCH TRANSDERM (09:23)
[2024-11-23] MEDS: LIDOCAINE 5% PATCH 1 PATCH TOPICAL (09:23)
[2024-11-23] MEDS: PANTOPRAZOLE SODIUM IV 40 MG VIAL IV PUSH (09:23)
[2024-11-23] MEDS: MORPHINE SULFATE (*CRX) 2 MG/ML INJ IV PUSH (10:18)
--- NOTE | 2024-11-23 10:45 | PM.PNGS ---
Progress Note: A&P Assessment and Plan (1) SBO (small bowel obstruction): Code(s): K56.609 - Unspecified intestinal obstruction, unspecified as to partial versus complete obstruction Status: Acute Assessment and Plan: Resolved. Tolerating a solid diet and bowels are moving. There is a narrowed segment of small bowel near the anastomosis that may need revised eventually, but not emergently. Would recommend outpatient referral to a Colorectal Surgeon once discharged to evaluate if he needs revision of the anastomosis. We will sign off at this time. Call with any surgical questions or concerns. (2) Acute renal failure: Qualifiers: Acute renal failure type: unspecified Qualified Code(s): N17.9 - Acute kidney failure, unspecified Code(s): N17.9 - Acute kidney failure, unspecified Status: Acute Assessment and Plan: Improving. Nephrology planning to remove right IJ dialysis catheter today. Plan Discussed patient's case and plan of care with Dr. Daniel. Subjective Subjective Date/Time Seen: 11/23/24 10:45 Patient reports: no new complaints Interval history: No acute changes overnight. Nursing planning to remove dialysis catheter today per Nephrology. Patient is not eating much, but reports it is due to the taste of the hospital food. He does have an appetite. Denies nausea or vomiting. Bowels continue to move with a BM overnight. Exam Const: General: comfortable, no acute distress and ill appearing chronically Orientation/consciousness: confusion Neck: Other: Right IJ dialysis catheter in place with dressing dry and intact, no drainage and no swelling or hematoma GI: Inspection: non-distended GI Palp: Yes Soft to palpation, No Tenderness to palpation present (GI), No Guarding due to palpation present (GI) and No Rebound tenderness present Auscultation: normal bowel sounds Objective Data Vital Signs Vital Signs: Vital Signs - 24 hr 11/22/24 14:45 11/22/24 20:00 11/22/24 20:52 Temperature 97.2 F L Pulse Rate 51 L Respiratory Rate 16 Blood Pressure 143/69 H Pulse Oximetry 98 98 Oxygen Delivery Room Air Room Air Fraction of Inspired Oxygen 11/22/24 21:46 11/23/24 05:54 11/23/24 08:35 Temperature 97.4 F L 97.3 F L Pulse Rate 78 54 L Respiratory Rate 20 20 Blood Pressure 148/61 H 160/61 H Pulse Oximetry 98 97 98 Oxygen Delivery Room Air Fraction of Inspired Oxygen 21 Intake/Output Intake/Output: Intake & Output 11/20/24 11/21/24 11/22/24 11/23/24 23:59 23:59 23:59 23:59 Intake Total 3849.3 1484.7 320 350 Output Total 2375 2150 1900 950 Balance 1474.3 -665.3 -1580 -600 Meds/Results Medications: Active Medications Generic Name Dose Route Start Last Admin Trade Name Freq PRN Reason Stop Dose Admin Acetaminophen 650 mg 11/13/24 21:38 Acetaminophen 325 Mg Tablet PO Q8H PRN Pain Rated 1-3 Acetaminophen 325 mg 11/19/24 12:11 11/19/24 21:20 Acetaminophen 325 Mg Suppository RECTAL 325 mg Q4H PRN Administration Mild Pain (1-3) or Fever Albuterol 2 puff 11/13/24 21:38 Albuterol Sulfate (*Sp) Aerosol 1 Puff INHALATION Q4H PRN Wheezing Artificial Tears 1 drop 11/13/24 21:58 11/21/24 22:33 Artificial Tears Ophth Soln 15 Ml Bottle EACH EYE 1 drop QID PRN Administration Dry Eye(s) Aspirin 81 mg 11/14/24 09:00 11/19/24 08:24 Aspirin 81 Mg Enteric Tablet PO Not Given DAILY BERNARDO Benzonatate 100 mg 11/13/24 21:38 Benzonatate 100 Mg Capsule PO TID PRN cough Brimonidine Tartrate 1 drop 11/14/24 06:00 11/23/24 06:40 Brimonidine Tartrate 0.2% Op Soln 5 Ml Btl EACH EYE 1 drop Q8HR [facility]ERNARDO Administration Brinzolamide 1 drop 11/14/24 06:00 11/23/24 06:44 Brinzolamide 1% Ophth Susp 10 Ml EACH EYE 1 drop Q8HR [facility] Administration Cholestyramine Resin 4 gm 11/14/24 10:00 11/19/24 08:27 Cholestyramine (W/ Sugar) 4 Gm Powd.Pack PO Not Given 1000,1300,1800 BERNARDO Dextrose 12.5 gm 11/13/24 21:30 Dextrose 50% 25 Gm/50 Ml Syringe IV PUSH PRN PRN Hypoglycemia Protocol Escitalopram Oxalate 15 mg 11/14/24 09:00 11/19/24 08:24 Escitalopram Oxalate 5 Mg Tablet PO Not Given QAM [facility] Gabapentin 100 mg 11/14/24 09:00 11/19/24 08:27 Gabapentin 100 Mg Capsule PO Not Given TID BERNARDO Glucagon 1 mg 11/13/24 21:30 Glucagon For Inj 1 Mg Vial IM PRN PRN Hypoglycemia Protocol Glucose 15 gm 11/13/24 21:30 Glucose Oral Gel 15 Gm Of Glucse In 37.5 Gm Tube PO PRN PRN Hypoglycemia Protocol Guaifenesin/Dextromethorphan 10 ml 11/13/24 21:38 Guaifenesin/Dextromethorphan 10 Ml Udc PO Q4-6H PRN Cough Heparin Sodium (Porcine) 5,000 units 11/14/24 22:00 11/23/24 06:45 Heparin Sodium 5,000 Units/Ml Vial SUB-Q 5,000 units Q8HR [facility]ERN[facility]O Administration Dextrose 1,000 mls @ 100 mls/hr 11/13/24 21:30 Dextrose 5% 1,000 Ml IVPB PRN PRN Hypoglycemia Protocol Albumin Human 50 mls @ 999 mls/hr 11/18/24 07:10 Albutein IVPB 12/18/24 07:09 Q10M PRN HYPOTENSION Insulin Aspart 3 - 6 units 11/14/24 08:00 11/23/24 09:18 Insulin Aspart (*Bkc) 100 Units/Ml SUB-Q Not Given TIDWM [facility] Protocol Lidocaine 1 patch 11/14/24 09:00 11/23/24 09:23 Lidocaine 5% Patch TOPICAL 1 patch DAILY BERNARDO Administration Loperamide HCl 2 mg 11/13/24 21:38 Loperamide Hcl 2 Mg Capsule PO Q6H PRN Diarrhea Melatonin 5 mg 11/13/24 22:00 11/19/24 08:26 Melatonin 5 Mg Tablet PO Not Given HS BERNARDO Morphine Sulfate 2 mg 11/20/24 00:03 11/23/24 10:18 Morphine Sulfate (*Crx) 2 Mg/Ml Inj IV PUSH 2 mg Q4H PRN Administration Pain Rated 7-10 Nicotine 1 patch 11/19/24 12:15 11/23/24 09:23 Nicotine (*Pbkc) 21 Mg Patch TRANSDERM 1 patch DAILY BERNARDO Administration Ondansetron HCl 4 mg 11/13/24 21:38 Ondansetron Hcl Odt 4 Mg Tablet PO Q4H PRN Nausea And Vomiting Pantoprazole Sodium 40 mg 11/17/24 09:00 11/23/24 09:23 Pantoprazole Sodium Iv 40 Mg Vial IV PUSH 40 mg QAM [facility] Administration Psyllium Hydrophilic Mucilloid 1 packet 11/13/24 22:00 Psyllium Sugar Free Powder Packet PO DAILY PRN constipation Rosuvastatin Calcium 40 mg 11/13/24 22:00 11/19/24 08:27 Rosuvastatin 20 Mg Tablet PO Not Given QHS [facility]O Fluticasone/Salmeterol 2 puff 11/19/24 20:00 11/23/24 08:37 Fluticasone/Salmeterol 45-21 Mcg Inhaler 1 Puff INHALATION 2 puff Q12HRT [facility] Administration Senna 8.6 mg 11/13/24 21:38 Sennosides 8.6 Mg Tablet PO DAILY PRN Constipation Tamsulosin HCl 0.4 mg 11/14/24 09:00 11/19/24 08:25 Tamsulosin Hcl 0.4 Mg Capsule PO Not Given [facility] [place] Radiology Results: ITS Impressions Chest/Abdomen/Pelvis CT 11/14/24 09:27 IMPRESSION: Bilateral renal calculi. Asymmetric mural thickening of the base of the bladder for which direct visualization is recommended. Findings which may represent partial distal bowel obstruction with significant air distention of the colon just before the anastomotic staple line and distal decompression. Significant gallbladder distention with trace surrounding inflammatory change. Bibasilar atelectasis. Renal Ultrasound 11/14/24 11:43 Impression: No definite abnormality seen. Visualization of the kidneys is somewhat suboptimal related to patient body habitus. Head CT 11/14/24 18:07 IMPRESSION: No acute intracranial findings. 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 Abdomen/Pelvis CT 11/15/24 09:13 IMPRESSION: 1. Bilateral nephrolithiasis with interval advancement of a 3-4 mm at least partially obstructing stone now at the left ureterovesicular junction with mild left hydroureteronephrosis. 2. Likely intermittent/partial small bowel obstruction secondary to a volvulus with at least 360 degrees twist of the distalmost small bowel immediately proximal to ileocolic anastomosis with no interval change in mild dilation of a few loops of more proximal small bowel. 3. Prominent dilation of the gallbladder to 6.5 cm but without evident wall thickening or pericholecystic infiltrate stranding to more specifically suggest acute cholecystitis. Correlate with the right upper quadrant ultrasound or HIDA scan. 4. Very small right and trace left pleural effusions and minimal perihepatic ascites. Abdomen Ultrasound 11/15/24 09:16 IMPRESSION: Fatty infiltration of the liver. Hydropic, fluid-filled gallbladder with dependent stones suspected. Hepatobiliary Scan Nuclear Medicine 11/15/24 15:34 IMPRESSION: 1. Normal hepatobiliary scan. Brain MRI 11/16/24 14:12 IMPRESSION: 1. No significant change in chronic infarcts, the largest involving the plantar to the right middle cerebral and portions of the anterior cerebral artery vascular distribution. No acute intracranial process. Chest X-Ray 11/17/24 15:19 IMPRESSION: Tip of the temporary dialysis catheter is at the cavoatrial junction. Lumbar Puncture Fluoroscopy 11/17/24 16:59 IMPRESSION: 1. Successful fluoro-guided lumbar puncture with normal opening pressure of 19 cm water. Abdomen X-Ray 11/20/24 14:45 IMPRESSION: Distended bowel loops which may indicate obstruction. Follow-up advised. Bilateral double-J stents. Enema w/Water Soluble 11/21/24 12:03 IMPRESSION: 1. Short segment of relatively narrowed small bowel immediately proximal to a pelvic ileocolic anastomosis with location and appearance of the narrowed segment consistent with 360 degrees twist in the bowel as seen on prior CT. There is however no significant secondary fixed obstruction with transient distention of the segment of bowel to a normal caliber with passage of contrast initially retrograde into the more proximal colon and subsequently antegrade during evacuation of the contrast. Labs Labs: Laboratory Results - last 24 hr 11/17/24 11/22/24 11/22/24 08:29 12:06 17:58 WBC RBC Hgb Hct MCV MCH MCHC RDW Plt Count MPV Immature Gran % (Auto) Neut % (Auto) Lymph % (Auto) [place] % (Auto) Eos % (Auto) Baso % (Auto) Lymph # (Auto) [place] # (Auto) Eos # (Auto) Baso # (Auto) Abs Immat Gran (auto) Absolute Neuts (auto) Absolute Nucleated RBC Nucleated RBC % Sodium Potassium Chloride Carbon Dioxide Anion Gap BUN Creatinine Estim Creat Clear Calc Estimated GFR Glucose POC Capillary Glucose 149 H 128 H Calcium Magnesium Total Bilirubin AST ALT Alkaline Phosphatase Total Protein Albumin Miscellaneous Test Comment 11/22/24 11/23/24 11/23/24 23:28 05:34 06:31 WBC 10.6 H RBC 3.07 L Hgb 8.7 L Hct 27.5 L MCV 89.6 MCH 28.3 MCHC 31.6 L RDW 15.0 H Plt Count 165 MPV 9.6 Immature Gran % (Auto) 3.0 H Neut % (Auto) 75.5 H Lymph % (Auto) 11.7 L [place] % (Auto) 5.5 Eos % (Auto) 3.9 Baso % (Auto) 0.4 Lymph # (Auto) 1.24 [place] # (Auto) 0.6 Eos # (Auto) 0.4 H Baso # (Auto) 0.0 Abs Immat Gran (auto) 0.32 H Absolute Neuts (auto) 8.0 H Absolute Nucleated RBC 0.000 Nucleated RBC % 0.0 Sodium 138 Potassium 3.9 Chloride 104 Carbon Dioxide 28 Anion Gap 6 BUN 73 H Creatinine 3.99 H Estim Creat Clear Calc 20 Estimated GFR 15 L Glucose 132 H POC Capillary Glucose 144 H 140 H Calcium 8.5 Magnesium 1.8 Total Bilirubin 0.5 AST 35 ALT 24 Alkaline Phosphatase 135 H Total Protein 5.5 L Albumin 2.7 L Miscellaneous Test
--- NOTE | 2024-11-23 12:52 | PM.IMPN ---
Progress Note: A&P Assessment and Plan (1) Acute renal failure: Qualifiers: Acute renal failure type: unspecified Qualified Code(s): N17.9 - Acute kidney failure, unspecified Code(s): N17.9 - Acute kidney failure, unspecified Status: Acute Assessment and Plan: -On dialysis - baseline: 1.1-1.3 - renal ultrasound unremarkable continue IVF and [place] catheter s/p cystoscopy with left ureteroscopy and stone extraction with bilateral stent Nephrology and Urology following Continue dialysis per nephrology (2) Hypotension: Qualifiers: Hypotension type: hypotension due to hypovolemia Qualified Code(s): E86.1 - Hypovolemia Code(s): I95.9 - Hypotension, unspecified Status: Resolved Assessment and Plan: resolved (3) Type 2 diabetes mellitus: Qualifiers: Diabetes mellitus exterminator helper termite insulin use: with exterminator helper termite use Diabetes mellitus complication status: with hypoglycemia Diabetes mellitus complication detail: without coma Qualified Code(s): E11.649 - Type 2 diabetes mellitus with hypoglycemia without coma; Z79.4 - long-term (current) use of insulin Code(s): E11.9 - Type 2 diabetes mellitus without complications Status: Chronic Assessment and Plan: solid diet CCI with accucheks and adjust with clinical course (4) Hypertension: Qualifiers: Hypertension type: primary hypertension Qualified Code(s): I10 - Essential (primary) hypertension Code(s): I10 - Essential (primary) hypertension Status: Chronic Assessment and Plan: titrate home meds with clinical course Plan Bryce improving On HD nephrology team on board Partial SBO CT AP reviewed NG has been clamped. plan for contrast enema today. started on clear liquid diet and NG removed 11/21/24 advance diet Gen surgery following , follow with colorectal surgeon as outpatient monitor Gall bladder distension Rule out Acute cholecystitis CT AP reviewed HIDA scan normal discontinued Rocephin and Metronidazole Blood culture Hydrops Gallbladder US abd reviewed Gen surgery following AMS, resolved from uremia, resolving with dialysis CT head no acute changes MRI brain, EEG moderate diffuse background slowing Ammonia <9 LP done, and CSF studies negative for meningitis Neurology eval noted mildly obstructing left ureteral calculus and right renal stones S/P Cystoscopy, bilateral retrogrades, left ureteroscopy, stone extraction, bilateral ureteral stent placement urology team on board Diet: heart healthy DVT Prophylaxis: Sq Heparin Code Status: DNR Subjective Date/time seen: 11/23/24 12:52 Interval history: per HPI: 69 y/o M with PMH of CVA, CAD, BPH, COPD, JAMES intolerant of CPAP, DM, and HTN presents here with generalized weakness. The patient presents here [facility] on 11/13 for further evaluation of generalized weakness. The patient reports he has had generalized weakness for the past week. It is accompanied by poor appetite and poor PO intake. [place] reported the patient has been having hypoglycemic events, occurred most recently yesterday. Patient is unsure how low his glucose levels were and has poor memory of events yesterday. He denies accompanying abdominal pain, chest pain, shortness of breath, dysuria, difficulty urinating, fever, and chills. He does endorse a mild headache and pain in his right shoulder that has been chronic since his CVA. Initial VS at presentation: 97.4? F, HR 49, R 12, 107/40, and 94% on 4L NC. ED workup showed: WBC 10.4, hemoglobin 12.3 (at baseline), normal coags, creatinine 5.43 and GFR 11 (1.13 and GFR >60 on 07/12/2024), glucose 90, lactic 0.8, CRP 2.8. CXR showed no focal consolidation, mild perihilar bronchial wall thickening a finding suggestive of respiratory bronchiolitis. 11/21/24 Patient was seen and ermined at bedside. he is feeling better. his abd pain improved. denies chest pain,SOb,N/V. has been diagnosed with SBO. NG has been clamped. plan for contrast enema today. started on clear liquid diet and NG removed Acute encephalopathy improved Bryce. on HD. has nephrology team on board 11/22/24 Patient was seen and examined at bedside. he is feeling better. he is tolerating diet, will advance diet. BRYCE stable. plan for possible HD today. nephrology and surgery team on board 11/23/24 patient was seen and examined at bedside. he is feeling better. his Cr is getting better. follow nephrology recs. Review of Systems Review of Systems: All systems reviewed & are unremarkable except as noted in HPI and below Exam Const: General: comfortable and no acute distress Other: Alert and Oriented x2, obese and comfortable HENMT: Face/Nose/Sinus: Normal nares present Mouth: Yes dry mucous membranes Eyes: General: appearance normal, both eyes and all related structures Sclera: sclerae normal Pupils: Equal, round and reactive pupils present EOM: EOMs intact bilaterally Resp: Effort & Inspection: normal respiratory effort Auscultation: clear to auscultation bilaterally Cardio: Rate: regular rate Rhythm: regular rhythm Other: S1-S2 present without murmur, rub, ectopy GI: Other: Abdomen soft, nondistended, nontender. quiet but normoactive bowel sounds in all quadrants. Skin: General skin exam: normal color Other: skin tear to the left upper extremity, Steri-Stripped. No active bleeding. Various areas of ecchymosis to bilateral upper extremities, no particular pattern. In various stages of healing. Neuro: Cranial nerves: Yes Equal, round and reactive pupils present Speech: normal speech Motor exam (neuro): 5/5 motor strength present throughout Sensory Exam: normal sensation Other: A&O x3 Extrem: General: normal to inspection Psych: Mental Status: mental status grossly normal Affect: normal affect Other: fair insight and judgment. Objective Data Vital Signs Vital Signs: Vital Signs - 24 hr 11/22/24 14:45 11/22/24 20:00 11/22/24 20:52 Temperature 97.2 F L Pulse Rate 51 L Respiratory Rate 16 Blood Pressure 143/69 H Pulse Oximetry 98 98 Oxygen Delivery Room Air Room Air Fraction of Inspired Oxygen 11/22/24 21:46 11/23/24 05:54 11/23/24 08:35 Temperature 97.4 F L 97.3 F L Pulse Rate 78 54 L Respiratory Rate 20 20 Blood Pressure 148/61 H 160/61 H Pulse Oximetry 98 97 98 Oxygen Delivery Room Air Fraction of Inspired Oxygen 21 Intake/Output Intake/Output: Intake & Output 11/20/24 11/21/24 11/22/24 11/23/24 23:59 23:59 23:59 23:59 Intake Total 3849.3 1484.7 320 350 Output Total 2375 2150 1900 950 Balance 1474.3 -665.3 -1580 -600 Meds/Results Medications: Active Medications Generic Name Dose Route Start Last Admin Trade Name Freq PRN Reason Stop Dose Admin Acetaminophen 650 mg 11/13/24 21:38 Acetaminophen 325 Mg Tablet PO Q8H PRN Pain Rated 1-3 Acetaminophen 325 mg 11/19/24 12:11 11/19/24 21:20 Acetaminophen 325 Mg Suppository RECTAL 325 mg Q4H PRN Administration Mild Pain (1-3) or Fever Albuterol 2 puff 11/13/24 21:38 Albuterol Sulfate (*Sp) Aerosol 1 Puff INHALATION Q4H PRN Wheezing Artificial Tears 1 drop 11/13/24 21:58 11/21/24 22:33 Artificial Tears Ophth Soln 15 Ml Bottle EACH EYE 1 drop QID PRN Administration Dry Eye(s) Aspirin 81 mg 11/14/24 09:00 11/19/24 08:24 Aspirin 81 Mg Enteric Tablet PO Not Given DAILY BERNARDO Benzonatate 100 mg 11/13/24 21:38 Benzonatate 100 Mg Capsule PO TID PRN cough Brimonidine Tartrate 1 drop 11/14/24 06:00 11/23/24 06:40 Brimonidine Tartrate 0.2% Op Soln 5 Ml Btl EACH EYE 1 drop Q8HR BERNARDO Administration Brinzolamide 1 drop 11/14/24 06:00 11/23/24 06:44 Brinzolamide 1% Ophth Susp 10 Ml EACH EYE 1 drop Q8HR BERNARDO Administration Cholestyramine Resin 4 gm 11/14/24 10:00 11/19/24 08:27 Cholestyramine (W/ Sugar) 4 Gm Powd.Pack PO Not Given 1000,1300,1800 BERNARDO Dextrose 12.5 gm 11/13/24 21:30 Dextrose 50% 25 Gm/50 Ml Syringe IV PUSH PRN PRN Hypoglycemia Protocol Escitalopram Oxalate 15 mg 11/14/24 09:00 11/19/24 08:24 Escitalopram Oxalate 5 Mg Tablet PO Not Given QAM BERNARDO Gabapentin 100 mg 11/14/24 09:00 11/19/24 08:27 Gabapentin 100 Mg Capsule PO Not Given TID BERNARDO Glucagon 1 mg 11/13/24 21:30 Glucagon For Inj 1 Mg Vial IM PRN PRN Hypoglycemia Protocol Glucose 15 gm 11/13/24 21:30 Glucose Oral Gel 15 Gm Of Glucse In 37.5 Gm Tube PO PRN PRN Hypoglycemia Protocol Guaifenesin/Dextromethorphan 10 ml 11/13/24 21:38 Guaifenesin/Dextromethorphan 10 Ml Udc PO Q4-6H PRN Cough Heparin Sodium (Porcine) 5,000 units 11/14/24 22:00 11/23/24 06:45 Heparin Sodium 5,000 Units/Ml Vial SUB-Q 5,000 units Q8HR BERNARDO Administration Dextrose 1,000 mls @ 100 mls/hr 11/13/24 21:30 Dextrose 5% 1,000 Ml IVPB PRN PRN Hypoglycemia Protocol Albumin Human 50 mls @ 999 mls/hr 11/18/24 07:10 Albutein IVPB 12/18/24 07:09 Q10M PRN HYPOTENSION Insulin Aspart 3 - 6 units 11/14/24 08:00 11/23/24 12:33 Insulin Aspart (*Bkc) 100 Units/Ml SUB-Q Not Given TIDWM BERNARDO Protocol Lidocaine 1 patch 11/14/24 09:00 11/23/24 09:23 Lidocaine 5% Patch TOPICAL 1 patch DAILY BERNARDO Administration Loperamide HCl 2 mg 11/13/24 21:38 Loperamide Hcl 2 Mg Capsule PO Q6H PRN Diarrhea Melatonin 5 mg 11/13/24 22:00 11/19/24 08:26 Melatonin 5 Mg Tablet PO Not Given HS BERNARDO Morphine Sulfate 2 mg 11/20/24 00:03 11/23/24 10:18 Morphine Sulfate (*Crx) 2 Mg/Ml Inj IV PUSH 2 mg Q4H PRN Administration Pain Rated 7-10 Nicotine 1 patch 11/19/24 12:15 11/23/24 09:23 Nicotine (*Pbkc) 21 Mg Patch TRANSDERM 1 patch DAILY BERNARDO Administration Ondansetron HCl 4 mg 11/13/24 21:38 Ondansetron Hcl Odt 4 Mg Tablet PO Q4H PRN Nausea And Vomiting Pantoprazole Sodium 40 mg 11/17/24 09:00 11/23/24 09:23 Pantoprazole Sodium Iv 40 Mg Vial IV PUSH 40 mg QAM BERNARDO Administration Psyllium Hydrophilic Mucilloid 1 packet 11/13/24 22:00 Psyllium Sugar Free Powder Packet PO DAILY PRN constipation Rosuvastatin Calcium 40 mg 11/13/24 22:00 11/19/24 08:27 Rosuvastatin 20 Mg Tablet PO Not Given QHS BERNARDO Fluticasone/Salmeterol 2 puff 11/19/24 20:00 11/23/24 08:37 Fluticasone/Salmeterol 45-21 Mcg Inhaler 1 Puff INHALATION 2 puff Q12HRT [facility] Administration Senna 8.6 mg 11/13/24 21:38 Sennosides 8.6 Mg Tablet PO DAILY PRN Constipation Tamsulosin HCl 0.4 mg 11/14/24 09:00 11/19/24 08:25 Tamsulosin Hcl 0.4 Mg Capsule PO Not Given QAM [facility] Radiology Results: ITS Impressions Chest/Abdomen/Pelvis CT 11/14/24 09:27 IMPRESSION: Bilateral renal calculi. Asymmetric mural thickening of the base of the bladder for which direct visualization is recommended. Findings which may represent partial distal bowel obstruction with significant air distention of the colon just before the anastomotic staple line and distal decompression. Significant gallbladder distention with trace surrounding inflammatory change. Bibasilar atelectasis. Renal Ultrasound 11/14/24 11:43 Impression: No definite abnormality seen. Visualization of the kidneys is somewhat suboptimal related to patient body habitus. Head CT 11/14/24 18:07 IMPRESSION: No acute intracranial findings. 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 Abdomen/Pelvis CT 11/15/24 09:13 IMPRESSION: 1. Bilateral nephrolithiasis with interval advancement of a 3-4 mm at least partially obstructing stone now at the left ureterovesicular junction with mild left hydroureteronephrosis. 2. Likely intermittent/partial small bowel obstruction secondary to a volvulus with at least 360 degrees twist of the distalmost small bowel immediately proximal to ileocolic anastomosis with no interval change in mild dilation of a few loops of more proximal small bowel. 3. Prominent dilation of the gallbladder to 6.5 cm but without evident wall thickening or pericholecystic infiltrate stranding to more specifically suggest acute cholecystitis. Correlate with the right upper quadrant ultrasound or HIDA scan. 4. Very small right and trace left pleural effusions and minimal perihepatic ascites. Abdomen Ultrasound 11/15/24 09:16 IMPRESSION: Fatty infiltration of the liver. Hydropic, fluid-filled gallbladder with dependent stones suspected. Hepatobiliary Scan Nuclear Medicine 11/15/24 15:34 IMPRESSION: 1. Normal hepatobiliary scan. Brain MRI 11/16/24 14:12 IMPRESSION: 1. No significant change in chronic infarcts, the largest involving the plantar to the right middle cerebral and portions of the anterior cerebral artery vascular distribution. No acute intracranial process. Chest X-Ray 11/17/24 15:19 IMPRESSION: Tip of the temporary dialysis catheter is at the cavoatrial junction. Lumbar Puncture Fluoroscopy 11/17/24 16:59 IMPRESSION: 1. Successful fluoro-guided lumbar puncture with normal opening pressure of 19 cm water. Abdomen X-Ray 11/20/24 14:45 IMPRESSION: Distended bowel loops which may indicate obstruction. Follow-up advised. Bilateral double-J stents. Enema w/Water Soluble 11/21/24 12:03 IMPRESSION: 1. Short segment of relatively narrowed small bowel immediately proximal to a pelvic ileocolic anastomosis with location and appearance of the narrowed segment consistent with 360 degrees twist in the bowel as seen on prior CT. There is however no significant secondary fixed obstruction with transient distention of the segment of bowel to a normal caliber with passage of contrast initially retrograde into the more proximal colon and subsequently antegrade during evacuation of the contrast. Labs Labs: Laboratory Results - last 24 hr 11/17/24 11/22/24 11/22/24 08:29 17:58 23:28 WBC RBC Hgb Hct MCV MCH MCHC RDW Plt Count MPV Immature Gran % (Auto) Neut % (Auto) Lymph % (Auto) [place] % (Auto) Eos % (Auto) Baso % (Auto) Lymph # (Auto) [place] # (Auto) Eos # (Auto) Baso # (Auto) Abs Immat Gran (auto) Absolute Neuts (auto) Absolute Nucleated RBC Nucleated RBC % Sodium Potassium Chloride Carbon Dioxide Anion Gap BUN Creatinine Estim Creat Clear Calc Estimated GFR Glucose POC Capillary Glucose 128 H 144 H Calcium Magnesium Total Bilirubin AST ALT Alkaline Phosphatase Total Protein Albumin Miscellaneous Test Comment 11/23/24 11/23/24 11/23/24 05:34 06:31 11:49 WBC 10.6 H RBC 3.07 L Hgb 8.7 L Hct 27.5 L MCV 89.6 MCH 28.3 MCHC 31.6 L RDW 15.0 H Plt Count 165 MPV 9.6 Immature Gran % (Auto) 3.0 H Neut % (Auto) 75.5 H Lymph % (Auto) 11.7 L [place] % (Auto) 5.5 Eos % (Auto) 3.9 Baso % (Auto) 0.4 Lymph # (Auto) 1.24 [place] # (Auto) 0.6 Eos # (Auto) 0.4 H Baso # (Auto) 0.0 Abs Immat Gran (auto) 0.32 H Absolute Neuts (auto) 8.0 H Absolute Nucleated RBC 0.000 Nucleated RBC % 0.0 Sodium 138 Potassium 3.9 Chloride 104 Carbon Dioxide 28 Anion Gap 6 BUN 73 H Creatinine 3.99 H Estim Creat Clear Calc 20 Estimated GFR 15 L Glucose 132 H POC Capillary Glucose 140 H 138 H Calcium 8.5 Magnesium 1.8 Total Bilirubin 0.5 AST 35 ALT 24 Alkaline Phosphatase 135 H Total Protein 5.5 L Albumin 2.7 L Miscellaneous Test Quality VTE Prophylaxis VTE prophylaxis: mechanical ordered
[2024-11-23 14:00] VITALS: BP 158/55; PULSE 59; RESP 18; TEMP 36.3; O2SAT 97
--- NOTE | 2024-11-23 14:02 | P.PNNP_ITS ---
Progress Note: A&P Assessment and Plan (1) Acute kidney injury: Code(s): N17.9 - Acute kidney failure, unspecified Status: Acute Assessment and Plan: * improvement noted * baseline creatinine seems to run ~ 1.1 - 1.3mg/dl * creatinine 1.13mg/dl in July 2024 * suspect multifactorial etiology: * prerenal factors * hypotension/hemodynamic instability * urinary retention/obstruction * infection (gallbladder?) * other(?) * evaluation to date noted: * urine electrolytes prerenal * rare urine eosinophils -- possible AIN? (however, no rash or peripheral eosinophilia) * CPK mildly elevated (but not enough to affect kidney function) * mild proteinuria * UA without evidence of infection * renal ultrasound negative (but limited due to body habitus) * HD on 11/17 and 11/18 * holding HD for now * follow trend of repeat labs and UOP for potential recovery (2) Altered mental status: Code(s): R41.82 - Altered mental status, unspecified Status: Acute Assessment and Plan: * resolved * as noted since 11/15 * etiology?? -- related to renal failure?? * Neurology recommendations noted * MRI of brain noted * s/p lumbar puncture - CSF studies noted * follow mentation (3) SBO (small bowel obstruction): Code(s): K56.609 - Unspecified intestinal obstruction, unspecified as to partial versus complete obstruction Status: Acute Assessment and Plan: * admission CT demonstrated findings which may represent partial distal bowel obstruction with significant air distention of the colon just before the and anastomotic staple line and distal decompression * repeat CT scan noted as well * NG tube out * Surgery following with recommendations noted * tolerating oral intake at this itme * follow repeat imaging * continue supportive therapy (4) Dilated gallbladder: Code(s): K82.8 - Other specified diseases of gallbladder Status: Acute Assessment and Plan: * admission CT demonstrated significant gallbladder distention with trace surrounding inflammatory change * repeat CT scan noted as well * normal LFTs * abdominal exam positive for diffuse tenderness to palpation (but unreliable given AMS) * no nausea or vomiting * HIDA scan results noted * Surgery following (5) Bilateral nephrolithiasis: Code(s): N20.0 - Calculus of kidney Status: Acute Assessment and Plan: * admission and repeat CT scan noted/reviewed * Urology recommendations noted * s/p cystoscopy, stone extraction, bilateral ureteral stent placement (on 11/16) * continue supportive therapy (6) Anemia: Code(s): D64.9 - Anemia, unspecified Status: Acute Assessment and Plan: * related to BRYCE and acute illness * follow trend of H/H (7) Hypertension: Qualifiers: Hypertension type: primary hypertension Qualified Code(s): I10 - Essential (primary) hypertension Code(s): I10 - Essential (primary) hypertension Status: Chronic Assessment and Plan: * slowly resume home BP medications * initially hypotensive on admission * follow trend of hemodynamics (8) Type 2 diabetes mellitus: 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 L Subjective Date/time seen: 11/23/24 14:02 Interval history: Follow-up for acute kidney injury/acute renal failure. Renal function/creatinine starting to improve today in association with good urine output as well; overall, he states he is feeling better in general and without any acute complaints voiced at the time of my visit; eating and drinking reasonably well with no reported abdominal pain or discomfort; no events overnight or earlier today. Exam 2 Narrative: General: large but ill-appearing male in NAD Heart: normal S1 and S2; no rub Lungs: clear anteriorly Abdomen: obese with positive bowel sounds Extremities: no cyanosis or clubbing; trace edema Skin: warm and dry Objective Data Vital Signs Vital Signs: Vital Signs Temp Pulse Resp BP Pulse Ox O2 Del Method FiO2 11/23/24 14:00 97.3 F L 59 L 18 158/55 H 97 11/23/24 08:35 98 Room Air 21 11/23/24 08:00 Room Air 11/23/24 05:54 97.3 F L 54 L 20 160/61 H 97 11/22/24 21:46 97.4 F L 78 20 148/61 H 98 11/22/24 20:52 98 Room Air 11/22/24 20:00 Room Air Intake/Output Intake/Output: Intake & Output 11/20/24 11/21/24 11/22/24 11/23/24 23:59 23:59 23:59 23:59 Intake Total 3849.3 1484.7 320 350 Output Total 2375 2150 1900 950 Balance 1474.3 -665.3 -1580 -600 Meds/Results Medications: Active Medications Generic Name Dose Route Start Last Admin Trade Name Freq PRN Reason Stop Dose Admin Acetaminophen 650 mg 11/13/24 21:38 Acetaminophen 325 Mg Tablet PO Q8H PRN Pain Rated 1-3 Acetaminophen 325 mg 11/19/24 12:11 11/19/24 21:20 Acetaminophen 325 Mg Suppository RECTAL 325 mg Q4H PRN Administration Mild Pain (1-3) or Fever Albuterol 2 puff 11/13/24 21:38 Albuterol Sulfate (*Sp) Aerosol 1 Puff INHALATION Q4H PRN Wheezing Artificial Tears 1 drop 11/13/24 21:58 11/21/24 22:33 Artificial Tears Ophth Soln 15 Ml Bottle EACH EYE 1 drop QID PRN Administration Dry Eye(s) Aspirin 81 mg 11/14/24 09:00 11/19/24 08:24 Aspirin 81 Mg Enteric Tablet PO Not Given DAILY BERNARDO Benzonatate 100 mg 11/13/24 21:38 Benzonatate 100 Mg Capsule PO TID PRN cough Brimonidine Tartrate 1 drop 11/14/24 06:00 11/23/24 13:00 Brimonidine Tartrate 0.2% Op Soln 5 Ml Btl EACH EYE 1 drop Q8HR BERNARDO Administration Brinzolamide 1 drop 11/14/24 06:00 11/23/24 13:00 Brinzolamide 1% Ophth Susp 10 Ml EACH EYE 1 drop Q8HR BERNARDO Administration Cholestyramine Resin 4 gm 11/14/24 10:00 11/19/24 08:27 Cholestyramine (W/ Sugar) 4 Gm Powd.Pack PO Not Given 1000,1300,1800 BERNARDO Dextrose 12.5 gm 11/13/24 21:30 Dextrose 50% 25 Gm/50 Ml Syringe IV PUSH PRN PRN Hypoglycemia Protocol Escitalopram Oxalate 15 mg 11/14/24 09:00 11/19/24 08:24 Escitalopram Oxalate 5 Mg Tablet PO Not Given QAM BERNARDO Gabapentin 100 mg 11/14/24 09:00 11/19/24 08:27 Gabapentin 100 Mg Capsule PO Not Given TID BERNARDO Glucagon 1 mg 11/13/24 21:30 Glucagon For Inj 1 Mg Vial IM PRN PRN Hypoglycemia Protocol Glucose 15 gm 11/13/24 21:30 Glucose Oral Gel 15 Gm Of Glucse In 37.5 Gm Tube PO PRN PRN Hypoglycemia Protocol Guaifenesin/Dextromethorphan 10 ml 11/13/24 21:38 Guaifenesin/Dextromethorphan 10 Ml Udc PO Q4-6H PRN Cough Heparin Sodium (Porcine) 5,000 units 11/14/24 22:00 11/23/24 12:59 Heparin Sodium 5,000 Units/Ml Vial SUB-Q 5,000 units Q8HR BERNARDO Administration Dextrose 1,000 mls @ 100 mls/hr 11/13/24 21:30 Dextrose 5% 1,000 Ml IVPB PRN PRN Hypoglycemia Protocol Albumin Human 50 mls @ 999 mls/hr 11/18/24 07:10 Albutein IVPB 12/18/24 07:09 Q10M PRN HYPOTENSION Insulin Aspart 3 - 6 units 11/14/24 08:00 11/23/24 12:33 Insulin Aspart (*Bkc) 100 Units/Ml SUB-Q Not Given TIDWM BERNARDO Protocol Lidocaine 1 patch 11/14/24 09:00 11/23/24 09:23 Lidocaine 5% Patch TOPICAL 1 patch DAILY BERNARDO Administration Loperamide HCl 2 mg 11/13/24 21:38 Loperamide Hcl 2 Mg Capsule PO Q6H PRN Diarrhea Melatonin 5 mg 11/13/24 22:00 11/19/24 08:26 Melatonin 5 Mg Tablet PO Not Given HS BERNARDO Morphine Sulfate 2 mg 11/20/24 00:03 11/23/24 10:18 Morphine Sulfate (*Crx) 2 Mg/Ml Inj IV PUSH 2 mg Q4H PRN Administration Pain Rated 7-10 Nicotine 1 patch 11/19/24 12:15 11/23/24 09:23 Nicotine (*Pbkc) 21 Mg Patch TRANSDERM 1 patch DAILY BERNARDO Administration Ondansetron HCl 4 mg 11/13/24 21:38 Ondansetron Hcl Odt 4 Mg Tablet PO Q4H PRN Nausea And Vomiting Pantoprazole Sodium 40 mg 11/17/24 09:00 11/23/24 09:23 Pantoprazole Sodium Iv 40 Mg Vial IV PUSH 40 mg QAM [facility] Administration Psyllium Hydrophilic Mucilloid 1 packet 11/13/24 22:00 Psyllium Sugar Free Powder Packet PO DAILY PRN constipation Rosuvastatin Calcium 40 mg 11/13/24 22:00 11/19/24 08:27 Rosuvastatin 20 Mg Tablet PO Not Given QHS BERNARDO Fluticasone/Salmeterol 2 puff 11/19/24 20:00 11/23/24 08:37 Fluticasone/Salmeterol 45-21 Mcg Inhaler 1 Puff INHALATION 2 puff Q12HRT [facility] Administration Senna 8.6 mg 11/13/24 21:38 Sennosides 8.6 Mg Tablet PO DAILY PRN Constipation Tamsulosin HCl 0.4 mg 11/14/24 09:00 11/19/24 08:25 Tamsulosin Hcl 0.4 Mg Capsule PO Not Given QAM [facility] Radiology Results: ITS Impressions Chest/Abdomen/Pelvis CT 11/14/24 09:27 IMPRESSION: Bilateral renal calculi. Asymmetric mural thickening of the base of the bladder for which direct visualization is recommended. Findings which may represent partial distal bowel obstruction with significant air distention of the colon just before the anastomotic staple line and distal decompression. Significant gallbladder distention with trace surrounding inflammatory change. Bibasilar atelectasis. Renal Ultrasound 11/14/24 11:43 Impression: No definite abnormality seen. Visualization of the kidneys is somewhat suboptimal related to patient body habitus. Head CT 11/14/24 18:07 IMPRESSION: No acute intracranial findings. 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 Abdomen/Pelvis CT 11/15/24 09:13 IMPRESSION: 1. Bilateral nephrolithiasis with interval advancement of a 3-4 mm at least partially obstructing stone now at the left ureterovesicular junction with mild left hydroureteronephrosis. 2. Likely intermittent/partial small bowel obstruction secondary to a volvulus with at least 360 degrees twist of the distalmost small bowel immediately proximal to ileocolic anastomosis with no interval change in mild dilation of a few loops of more proximal small bowel. 3. Prominent dilation of the gallbladder to 6.5 cm but without evident wall thickening or pericholecystic infiltrate stranding to more specifically suggest acute cholecystitis. Correlate with the right upper quadrant ultrasound or HIDA scan. 4. Very small right and trace left pleural effusions and minimal perihepatic ascites. Abdomen Ultrasound 11/15/24 09:16 IMPRESSION: Fatty infiltration of the liver. Hydropic, fluid-filled gallbladder with dependent stones suspected. Hepatobiliary Scan Nuclear Medicine 11/15/24 15:34 IMPRESSION: 1. Normal hepatobiliary scan. Brain MRI 11/16/24 14:12 IMPRESSION: 1. No significant change in chronic infarcts, the largest involving the plantar to the right middle cerebral and portions of the anterior cerebral artery vascular distribution. No acute intracranial process. Chest X-Ray 11/17/24 15:19 IMPRESSION: Tip of the temporary dialysis catheter is at the cavoatrial junction. Lumbar Puncture Fluoroscopy 11/17/24 16:59 IMPRESSION: 1. Successful fluoro-guided lumbar puncture with normal opening pressure of 19 cm water. Abdomen X-Ray 11/20/24 14:45 IMPRESSION: Distended bowel loops which may indicate obstruction. Follow-up advised. Bilateral double-J stents. Enema w/Water Soluble 11/21/24 12:03 IMPRESSION: 1. Short segment of relatively narrowed small bowel immediately proximal to a pelvic ileocolic anastomosis with location and appearance of the narrowed segment consistent with 360 degrees twist in the bowel as seen on prior CT. There is however no significant secondary fixed obstruction with transient distention of the segment of bowel to a normal caliber with passage of contrast initially retrograde into the more proximal colon and subsequently antegrade during evacuation of the contrast. Labs Labs: Laboratory Tests 11/23/24 06:31 11/23/24 06:31 Calcium 8.5 Magnesium 1.8 Total Bilirubin 0.5 AST 35 ALT 24 Alkaline Phosphatase 135 H Total Protein 5.5 L Albumin 2.7 L
--- NOTE | 2024-11-23 14:33 | PCNFU ---
Nutrition Follow-Up Complete: Inadequate energy intake related to NPO status as evidenced by current diet orders Goal:Meet estimated needs Pt progressing towards goal via PO intake at this time Pt current nutrition is Low fiber / soft diet. Nutrition recommendation: Add Ensure high protein shakes BID for an additional 350kcals, 20g protein Last recorded weight is 105 kg. Bowel Motility: +BM 11/23 Labs Reviewed: Hgb:8.7, HCt:27.5, Alb:2.7, GFR:15, BUN:73, Cr:3.9, Glu:132 Meds Noted: protonix, novolog Skin: DTPI to thigh Additional Notes: Pt NG removed, PPN discontinued, started on clear liquids, advanced to a soft, low fiber diet. Intake 0-50%. Encourage po intake, offer supplements. Monitor diet orders, plan of care, wt, labs. Follow up in 3 days.
[2024-11-23] MEDS: NEOMYCIN/POLYMYXIN/BACITRACIN OINTMENT PACKET 1 PACKET (15:45)
[2024-11-23 19:47] VITALS: O2SAT 97
[2024-11-23 21:20] VITALS: BP 145/55; PULSE 74; RESP 18; TEMP 36.7; O2SAT 100
--- NOTE | 2024-11-24 03:48 | PC.NURSE ---
Called into Pt's room for C/O pain and discomfort in his back and buttock area. Pt. offered pain medications, Morphine or Tylenol suppository. Offered to reposition Pt. to help with back pain and buttock pain, for which Pt. refused, stating that it hurts when people turn him. Pt. refusing Tylenol suppository stating 'no one is sticking anything up my bottom'. Pt. refusing pain medications at this time and requesting to be discharged. Pt. requesting to see a doctor right now to be discharged. Explained to Pt. that they day shift doctors, Hospitalist & Nephrology would need to be to ones to discharge him back to [facility]. Pt. states that he wants to sign out stating 'all you want to do is take my money'. Informed Pt. to let us know when his ride is here.
[2024-11-24 05:20] VITALS: BP 151/70; PULSE 88; RESP 16; TEMP 36.6; O2SAT 97
[2024-11-24] MEDS: BRIMONIDINE TARTRATE 0.2% OP SOLN 5 ML BTL 1 DROP EACH EYE (05:42)
[2024-11-24] MEDS: BRINZOLAMIDE 1% OPHTH SUSP 10 ML 1 DROP EACH EYE (05:46)
[2024-11-24 06:02] LABS: Hematocrit 29.8 % (42.0-52.0); Hemoglobin 9.2 g/dL (14.0-18.0); Immature Granulocyte Percent A 2.3 % (0-0.5); Lymphocytes Absolute Auto 1.06 K/mm3 (0.9-3.2); Mean Corpuscular HGB Conc 30.9 g/dl (32-36); Mean Corpuscular Hemoglobin 28.1 pg (26-34); Mean Corpuscular Volume 91.1 fl (80-100); Nucleated Red Blood Cells Absolute Auto 0.000 K/mm3 (0.0-0.012); Nucleated Red Blood Cells Perc 0.0 % (0.0-0.2); Platelet Count Result 168 k/mm3 (150-375); Red Blood Count 3.27 M/mm3 (4.6-6.20); White Blood Count 9.2 K/mm3 (4.5-10.0)
[2024-11-24 06:23] LABS: Alanine Aminotransferase 24 U/L (6-50); Albumin Level 3.0 g/dL (3.5-5.1); Alkaline Phosphatase 138 U/L (38-126); Anion Gap 8 mmol/L (4-12); Aspartate Amino Transferase 32 U/L (17-59); Bilirubin,Total 0.6 mg/dL (0.2-1.3); Blood Urea Nitrogen 64 mg/dL (9-20); Calcium 8.8 mg/dL (8.4-10.2); Carbon Dioxide 29 mmol/L (22-30); Chloride 106 mmol/L (98-107); Estimated CRCL calculation 22 ml/min; Estimated Glomerular Filt Rate 17; Glucose 132 mg/dL (65-110); Magnesium 1.7 mg/dL (1.6-2.3); Potassium 4.4 mmol/L (3.4-5.0); Sodium 143 mmol/L (137-145); Total Protein 6.1 g/dL (6.3-8.2)
[2024-11-24] MEDS: MORPHINE SULFATE (*CRX) 2 MG/ML INJ IV PUSH (06:34)
[2024-11-24 08:42] VITALS: O2SAT 94
[2024-11-24] MEDS: FLUTICASONE/SALMETEROL 45-21 MCG INHALER 1 PUFF 2 PUFF INHALATION (08:42)
[2024-11-24] MEDS: LIDOCAINE 5% PATCH 1 PATCH TOPICAL (09:17)
[2024-11-24] MEDS: NICOTINE (*PBKC) 21 MG PATCH 1 PATCH TRANSDERM (09:17)
[2024-11-24] MEDS: PANTOPRAZOLE SODIUM IV 40 MG VIAL IV PUSH (09:17)
--- NOTE | 2024-11-24 10:19 | PM.DS ---
DS: Admitting Diagnosis Discharge Date 11/24/24 Admitting Diagnosis acute encephalopathy, SBO DS: Discharge Diagnosis Discharge Diagnosis (1) Acute renal failure: Qualifiers: Acute renal failure type: unspecified Qualified Code(s): N17.9 - Acute kidney failure, unspecified Code(s): N17.9 - Acute kidney failure, unspecified Status: Acute Assessment and Plan: -On dialysis - baseline: 1.1-1.3 - renal ultrasound unremarkable received IVF and Huddl[place] catheter(discontinued) s/p cystoscopy with left ureteroscopy and stone extraction with bilateral stent Nephrology and Urology following Continue dialysis per nephrology no more needed (2) Hypotension: Qualifiers: Hypotension type: hypotension due to hypovolemia Qualified Code(s): E86.1 - Hypovolemia Code(s): I95.9 - Hypotension, unspecified Status: Acute Assessment and Plan: resolved (3) Type 2 diabetes mellitus: Qualifiers: 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 Diabetes mellitus complication status: with hypoglycemia Diabetes mellitus complication detail: without coma Qualified Code(s): E11.649 - Type 2 diabetes mellitus with hypoglycemia without coma; 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 plan for contrast enema today. started on clear liquid diet and NG removed 11/21/24 advance diet Gen surgery following , follow with colorectal surgeon as outpatient monitor Gall bladder distension Rule out Acute cholecystitis CT AP reviewed HIDA scan normal discontinued Rocephin and Metronidazole Blood culture Hydrops Gallbladder US abd reviewed Gen surgery following AMS, resolved from uremia, resolving with dialysis CT head no acute changes MRI brain, EEG moderate diffuse background slowing Ammonia <9 LP done, and CSF studies negative for meningitis Neurology eval noted mildly obstructing left ureteral calculus and right renal stones S/P Cystoscopy, bilateral retrogrades, left ureteroscopy, stone extraction, bilateral ureteral stent placement urology team on board Diet: heart healthy Code Status: DNR DS: Summary Hospital Course Hospital Course: per HPI: 69 y/o M with PMH of CVA, CAD, BPH, COPD, JAMES intolerant of CPAP, DM, and HTN presents here with generalized weakness. The patient presents here [facility] on 11/13 for further evaluation of generalized weakness. The patient reports he has had generalized weakness for the past week. It is accompanied by poor appetite and poor PO intake. NH reported the patient has been having hypoglycemic events, occurred most recently yesterday. Patient is unsure how low his glucose levels were and has poor memory of events yesterday. He denies accompanying abdominal pain, chest pain, shortness of breath, dysuria, difficulty urinating, fever, and chills. He does endorse a mild headache and pain in his right shoulder that has been chronic since his CVA. Initial VS at presentation: 97.4? F, HR 49, R 12, 107/40, and 94% on 4L NC. ED workup showed: WBC 10.4, hemoglobin 12.3 (at baseline), normal coags, creatinine 5.43 and GFR 11 (1.13 and GFR >60 on 07/12/2024), glucose 90, lactic 0.8, CRP 2.8. CXR showed no focal consolidation, mild perihilar bronchial wall thickening a finding suggestive of respiratory bronchiolitis. 11/21/24 Patient was seen and ermined at bedside. he is feeling better. his abd pain improved. denies chest pain,SOb,N/V. has been diagnosed with SBO. NG has been clamped. plan for contrast enema today. started on clear liquid diet and NG removed Acute encephalopathy improved Bryce. on HD last one on 11/19/24. has nephrology team on board 11/22/24 Patient was seen and examined at bedside. he is feeling better. he is tolerating diet, will advance diet. BRYCE stable. nephrology and surgery team on board 11/24/24 patient was seen and examined at bedside. he is feeling better. his Cr is getting better. no more HD needed. HD catheter was discontinued yesterday. will discharge patrient. follow up with repeat lab test as outpatient Status at Discharge Overall status at discharge: patient is progressing back to baseline Time Spent with Patient Time attestation: Total time spent providing and/or coordinating discharge services: Time spent: Greater than 30 minutes Exam Const: General: comfortable and no acute distress Other: Alert and Oriented x2, obese and comfortable HENMT: Face/Nose/Sinus: Normal nares present Mouth: Yes dry mucous membranes Eyes: General: appearance normal, both eyes and all related structures Sclera: sclerae normal Pupils: Equal, round and reactive pupils present EOM: EOMs intact bilaterally Resp: Effort & Inspection: normal respiratory effort Auscultation: clear to auscultation bilaterally Cardio: Rate: regular rate Rhythm: regular rhythm Other: S1-S2 present without murmur, rub, ectopy GI: Other: Abdomen soft, nondistended, nontender. quiet but normoactive bowel sounds in all quadrants. Skin: General skin exam: normal color Other: skin tear to the left upper extremity, Steri-Stripped. No active bleeding. Various areas of ecchymosis to bilateral upper extremities, no particular pattern. In various stages of healing. Neuro: Cranial nerves: Yes Equal, round and reactive pupils present Speech: normal speech Motor exam (neuro): 5/5 motor strength present throughout Sensory Exam: normal sensation Other: A&O x3 Extrem: General: normal to inspection Psych: Mental Status: mental status grossly normal Affect: normal affect Other: fair insight and judgment. DS: Data Data Completed and Pending Completed studies during hospitalization: Pending at discharge 11/16/24 08:41 Surgical [PTH] Routine 11/16/24 11:55 Cytology [PTH] Routine Labs on day of discharge: Labs from last 24 hours 11/24/24 11/24/24 11/23/24 05:52 05:40 23:28 WBC 9.2 RBC 3.27 L Hgb 9.2 L Hct 29.8 L MCV 91.1 MCH 28.1 MCHC 30.9 L RDW 14.9 H Plt Count 168 MPV 9.2 Immature Gran % (Auto) 2.3 H Neut % (Auto) 75.2 H Lymph % (Auto) 11.6 L [place] % (Auto) 6.4 Eos % (Auto) 4.2 Baso % (Auto) 0.3 Lymph # (Auto) 1.06 [place] # (Auto) 0.6 Eos # (Auto) 0.4 H Baso # (Auto) 0.0 Abs Immat Gran (auto) 0.21 H Absolute Neuts (auto) 6.9 H Absolute Nucleated RBC 0.000 Nucleated RBC % 0.0 Sodium 143 Potassium 4.4 Chloride 106 Carbon Dioxide 29 Anion Gap 8 BUN 64 H Creatinine 3.66 H Estim Creat Clear Calc 22 Estimated GFR 17 L Glucose 132 H POC Capillary Glucose 130 H 134 H Calcium 8.8 Magnesium 1.7 Total Bilirubin 0.6 AST 32 ALT 24 Alkaline Phosphatase 138 H Total Protein 6.1 L Albumin 3.0 L 11/23/24 11/23/24 17:26 11:49 WBC RBC Hgb Hct MCV MCH MCHC RDW Plt Count MPV Immature Gran % (Auto) Neut % (Auto) Lymph % (Auto) [place] % (Auto) Eos % (Auto) Baso % (Auto) Lymph # (Auto) [place] # (Auto) Eos # (Auto) Baso # (Auto) Abs Immat Gran (auto) Absolute Neuts (auto) Absolute Nucleated RBC Nucleated RBC % Sodium Potassium Chloride Carbon Dioxide Anion Gap BUN Creatinine Estim Creat Clear Calc Estimated GFR Glucose POC Capillary Glucose 128 H 138 H Calcium Magnesium Total Bilirubin AST ALT Alkaline Phosphatase Total Protein Albumin Discharge Plan Discharge Attending physician on discharge: Eber Delgado Consulting providers: Eufemia Zamora; Anam Daniel; Pat Gonzalez; Bradly Mina; Benja Beyer; Eber Delgado Discharging Clinician: Eber Delgado Anticipated Discharge Date/Time: 11/24/24 10:19 Patient Disposition: SNF Activity: as tolerated Diet: heart healthy Discharge Instructions: You have some narrowing of the small bowel where you had your previous surgery. We recommend you schedule an appointment with Colorectal Surgery after discharge to review your records and evaluate if you need another surgery in this area. follow with nephrology clinic. call to make appointment follow with PCP in one week follow with urology clinic as outpatient follow with repeat blood test next week and report to the PCP Patient Instructions: Heart Failure (GEN) Patient Language: Dutch Stand Alone Forms: General Discharge Information Follow-up/Referrals: Jack,Brandon [Other] - Call for Appointment Pat Gonzalez MD [Physician] - Call for Appointment Bradly Mina MD [Physician] - Call for Appointment (Stent management) Benja Beyer MD [Physician] - Call for Appointment Discharge Medications: Continued benzonatate 100 mg capsule 100 mg PO TID PRN (Reason: cough ) Emilia Aerosphere 160-9-4.8 mcg/actuation HFA aerosol inhaler 2 inh INHALATION BID oxycodone 5 mg tablet 5 mg PO QHS Simbrinza 1-0.2 % drops,suspension 1 drp EACH EYE TID insulin glargine [Lantus U-100 Insulin] 100 unit/mL Solution 15 unit subcut HS 15 Days Qty: 2.25 0RF insulin aspart U-100 [Novolog FlexPen U-100 Insulin] 100 unit/mL (3 mL) insulin pen 1 sliding scale dose subcut USEASDIRECTD Qty: 15 2RF Rx Instructions: sliding scale insulin 70-130 - 0 units of insulin 131-180 - 2 units of insulin 181-240 - 4 units of insulin 241- 300- 6 units of insulin 301- 350 - 8 units of insulin 351-400 - 10 units of insulin >400 - 12 units of insulin cholestyramine 4 gram powder 4 g PO TID Rx Instructions: administer w/meal; avoid other meds within 1hr before or 4-6hr after dose psyllium husk [Fiber (psyllium husk)] 0.4 gram capsule 0.4 g PO DAILY PRN (Reason: constipation) lidocaine 5 % adhesive patch,medicated 1 patch topical DAILY Rx Instructions: remove at 6 pm sennosides [Senokot] 8.6 mg Tablet 8.6 mg PO PRN PRN (Reason: Constipation) acetaminophen 325 mg Tablet 650 mg PO Q8H PRN (Reason: Pain, Mild) loperamide [Anti-Diarrheal (loperamide)] 2 mg Capsule 2 mg PO Q6H PRN (Reason: Diarrhea) dextromethorphan-guaifenesin 10-100 mg/5 mL Syrup 10 ml PO Q4-6H PRN (Reason: Cough) aspirin 81 mg Tablet,Delayed Release (Dr/Ec) 81 mg PO DAILY carvedilol 3.125 mg Tablet 3.125 mg PO BID Rx Instructions: must administer with a meal/food tamsulosin 0.4 mg Capsule 0.4 mg PO QAM cabergoline 0.5 mg Tablet 0.5 mg PO 2XW Rx Instructions: 1mg, Wednesday and Wednesday gabapentin 100 mg Capsule 100 mg PO TID albuterol sulfate 90 mcg/actuation Hfa Aerosol Inhaler 2 puff INHALATION Q4H PRN (Reason: Wheezing) ondansetron 4 mg Tablet,Disintegrating 4 mg PO Q4H PRN (Reason: Nausea And Vomiting) glipizide 5 mg Tablet 5 mg PO QAM escitalopram oxalate 20 mg Tablet 15 mg PO QAM carboxymethylcellulose sodium [Refresh Plus] 0.5 % Dropperette 1 drp EACH EYE QID PRN (Reason: Dry Eyes) rosuvastatin 40 mg Tablet 40 mg PO QHS melatonin 5 mg Tablet 5 mg PO HS Spiriva Respimat 2.5 mcg/actuation Mist 2 puff INHALATION QAM Other Ambulatory Orders: Basic Metabolic Panel (Routine) Timeframe: 3 Days Location: Determined by Patient Ordered By: Eber Delgado Date of admission: 11/13/24 17:51 Primary Care Provider: AdrianBrandon Admitting Provider: Juan Diego Castro Attending physician on admission: Juan Diego Castro Condition: Improved Quality VTE Prophylaxis VTE prophylaxis: mechanical ordered
--- NOTE | 2024-11-24 11:32 | P.PNNP_ITS ---
Progress Note: A&P Assessment and Plan (1) Acute kidney injury: Code(s): N17.9 - Acute kidney failure, unspecified Status: Acute Assessment and Plan: * BRYCE * baseline creatinine seems to run ~ 1.1 - 1.3mg/dl * creatinine 1.13mg/dl in July 2024 * evaluation to date noted: * urine electrolytes prerenal * rare urine eosinophils -- possible AIN? (however, no rash or peripheral eosinophilia) * CPK mildly elevated (but not enough to affect kidney function) * mild proteinuria * UA without evidence of infection * renal ultrasound negative (but limited due to body habitus) * suspect multifactorial etiology: * prerenal factors * hypotension/hemodynamic instability * urinary retention/obstruction * infection (gallbladder?) * other(?) * HD on 11/17 and 11/18 * holding HD for now * creatinine improving but not back to baseline * If discharged he will need labs next week. we could follow if needed unless PCP wants to. * [I wrote this note after pt was discharged. I talked with nursing. his dialysis catheter is out and he will have labs next week. he was instructed to call for appointment.] (2) Altered mental status: Code(s): R41.82 - Altered mental status, unspecified Status: Acute Assessment and Plan: * resolved * as noted since 11/15 * etiology?? -- related to renal failure?? * Neurology recommendations noted * MRI of brain noted * s/p lumbar puncture - CSF studies noted * mental status looks. (3) SBO (small bowel obstruction): Code(s): K56.609 - Unspecified intestinal obstruction, unspecified as to partial versus complete obstruction Status: Acute Assessment and Plan: * Surgery following with recommendations noted * tolerating oral intake at this itme (4) Dilated gallbladder: Code(s): K82.8 - Other specified diseases of gallbladder Status: Acute Assessment and Plan: * Surgery following (5) Bilateral nephrolithiasis: Code(s): N20.0 - Calculus of kidney Status: Acute Assessment and Plan: * admission and repeat CT scan noted/reviewed * Urology recommendations noted * s/p cystoscopy, stone extraction, bilateral ureteral stent placement (on 11/16) * continue to follow with urology (6) Anemia: Code(s): D64.9 - Anemia, unspecified Status: Acute Assessment and Plan: * related to BRYCE and acute illness * Hb up to 9.2 (7) Hypertension: Qualifiers: Hypertension type: primary hypertension Qualified Code(s): I10 - Esse ntial (primary) hypertension Code(s): I10 - Essential (primary) hypertension Status: Chronic Assessment and Plan: * systolic 130s to 150s * initially hypotensive on admission * fold bp meds in as an outpatient (8) Type 2 diabetes mellitus: 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 eager for discharge no sob or cp Exam Narrative: General: large but ill-appearing male in NAD Heart: normal S1 and S2; no rub Lungs: clear anteriorly Abdomen: obese with positive bowel sounds Extremities: no cyanosis or clubbing; trace edema Skin: warm and dry Objective Data Vital Signs Vital Signs: Vital Signs - 24 hr 11/23/24 14:00 11/23/24 19:47 11/23/24 20:00 Temperature 97.3 F L Pulse Rate 59 L Respiratory Rate 18 Blood Pressure 158/55 H Pulse Oximetry 97 97 Oxygen Delivery Room Air Room Air 11/23/24 21:20 11/24/24 05:20 11/24/24 08:42 Temperature 98.0 F 97.9 F Pulse Rate 74 88 Respiratory Rate 18 16 Blood Pressure 145/55 H 151/70 H Pulse Oximetry 100 97 94 Oxygen Delivery Room Air Intake/Output Intake/Output: Intake & Output 11/21/24 11/22/24 11/23/24 11/24/24 23:59 23:59 23:59 23:59 Intake Total 1484.7 320 350 300 Output Total 2150 1900 1850 1000 Balance -665.3 -1580 -1500 -700 Meds/Results Medications: Active Medications Generic Name Dose Route Start Last Admin Trade Name Freq PRN Reason Stop Dose Admin Acetaminophen 650 mg 11/13/24 21:38 Acetaminophen 325 Mg Tablet PO Q8H PRN Pain Rated 1-3 Acetaminophen 325 mg 11/19/24 12:11 11/19/24 21:20 Acetaminophen 325 Mg Suppository RECTAL 325 mg Q4H PRN Administration Mild Pain (1-3) or Fever Albuterol 2 puff 11/13/24 21:38 Albuterol Sulfate (*Sp) Aerosol 1 Puff INHALATION Q4H PRN Wheezing Artificial Tears 1 drop 11/13/24 21:58 11/21/24 22:33 Artificial Tears Ophth Soln 15 Ml Bottle EACH EYE 1 drop QID PRN Administration Dry Eye(s) Aspirin 81 mg 11/14/24 09:00 11/19/24 08:24 Aspirin 81 Mg Enteric Tablet PO Not Given DAILY BERNARDO Benzonatate 100 mg 11/13/24 21:38 Benzonatate 100 Mg Capsule PO TID PRN cough Brimonidine Tartrate 1 drop 11/14/24 06:00 11/24/24 05:42 Brimonidine Tartrate 0.2% Op Soln 5 Ml Btl EACH EYE 1 drop Q8HR BERNARDO Administration Brinzolamide 1 drop 11/14/24 06:00 11/24/24 05:46 Brinzolamide 1% Ophth Susp 10 Ml EACH EYE 1 drop Q8HR BERNARDO Administration Cholestyramine Resin 4 gm 11/14/24 10:00 11/19/24 08:27 Cholestyramine (W/ Sugar) 4 Gm Powd.Pack PO Not Given 1000,1300,1800 BERNARDO Dextrose 12.5 gm 11/13/24 21:30 Dextrose 50% 25 Gm/50 Ml Syringe IV PUSH PRN PRN Hypoglycemia Protocol Escitalopram Oxalate 15 mg 11/14/24 09:00 11/19/24 08:24 Escitalopram Oxalate 5 Mg Tablet PO Not Given QAM BERNARDO Gabapentin 100 mg 11/14/24 09:00 11/19/24 08:27 Gabapentin 100 Mg Capsule PO Not Given TID BERNARDO Glucagon 1 mg 11/13/24 21:30 Glucagon For Inj 1 Mg Vial IM PRN PRN Hypoglycemia Protocol Glucose 15 gm 11/13/24 21:30 Glucose Oral Gel 15 Gm Of Glucse In 37.5 Gm Tube PO PRN PRN Hypoglycemia Protocol Guaifenesin/Dextromethorphan 10 ml 11/13/24 21:38 Guaifenesin/Dextromethorphan 10 Ml Udc PO Q4-6H PRN Cough Heparin Sodium (Porcine) 5,000 units 11/14/24 22:00 11/24/24 05:47 Heparin Sodium 5,000 Units/Ml Vial SUB-Q 5,000 units Q8HR BERNARDO Administration Dextrose 1,000 mls @ 100 mls/hr 11/13/24 21:30 Dextrose 5% 1,000 Ml IVPB PRN PRN Hypoglycemia Protocol Albumin Human 50 mls @ 999 mls/hr 11/18/24 07:10 Albutein IVPB 12/18/24 07:09 Q10M PRN HYPOTENSION Insulin Aspart 3 - 6 units 11/14/24 08:00 11/24/24 09:16 Insulin Aspart (*Bkc) 100 Units/Ml SUB-Q Not Given TIDWM BERNARDO Protocol Lidocaine 1 patch 11/14/24 09:00 11/24/24 09:17 Lidocaine 5% Patch TOPICAL 1 patch DAILY BERNARDO Administration Loperamide HCl 2 mg 11/13/24 21:38 Loperamide Hcl 2 Mg Capsule PO Q6H PRN Diarrhea Melatonin 5 mg 11/13/24 22:00 11/19/24 08:26 Melatonin 5 Mg Tablet PO Not Given HS BERNARDO Morphine Sulfate 2 mg 11/20/24 00:03 11/24/24 06:34 Morphine Sulfate (*Crx) 2 Mg/Ml Inj IV PUSH 2 mg Q4H PRN Administration Pain Rated 7-10 Nicotine 1 patch 11/19/24 12:15 11/24/24 09:17 Nicotine (*Pbkc) 21 Mg Patch TRANSDERM 1 patch DAILY BERNARDO Administration Ondansetron HCl 4 mg 11/13/24 21:38 Ondansetron Hcl Odt 4 Mg Tablet PO Q4H PRN Nausea And Vomiting Pantoprazole Sodium 40 mg 11/17/24 09:00 11/24/24 09:17 Pantoprazole Sodium Iv 40 Mg Vial IV PUSH 40 mg QAM BERNARDO Administration Psyllium Hydrophilic Mucilloid 1 packet 11/13/24 22:00 Psyllium Sugar Free Powder Packet PO DAILY PRN constipation Rosuvastatin Calcium 40 mg 11/13/24 22:00 11/19/24 08:27 Rosuvastatin 20 Mg Tablet PO Not Given QHS BERNARDO Fluticasone/Salmeterol 2 puff 11/19/24 20:00 11/24/24 08:42 Fluticasone/Salmeterol 45-21 Mcg Inhaler 1 Puff INHALATION 2 puff Q12HRT [facility] Administration Senna 8.6 mg 11/13/24 21:38 Sennosides 8.6 Mg Tablet PO DAILY PRN Constipation Tamsulosin HCl 0.4 mg 11/14/24 09:00 11/19/24 08:25 Tamsulosin Hcl 0.4 Mg Capsule PO Not Given QAM [facility] Radiology Results: ITS Impressions Chest/Abdomen/Pelvis CT 11/14/24 09:27 IMPRESSION: Bilateral renal calculi. Asymmetric mural thickening of the base of the bladder for which direct vi sualization is recommended. Findings which may represent partial distal bowel obstruction with significant air distention of the colon just before the anastomotic staple line and distal decompression. Significant gallbladder distention with trace surrounding inflammatory change. Bibasilar atelectasis. Renal Ultrasound 11/14/24 11:43 Impression: No definite abnormality seen. Visualization of the kidneys is somewhat suboptimal related to patient body habitus. Head CT 11/14/24 18:07 IMPRESSION: No acute intracranial findings. 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 Abdomen/Pelvis CT 11/15/24 09:13 IMPRESSION: 1. Bilateral nephrolithiasis with interval advancement of a 3-4 mm at least par tially obstructing stone now at the left ureterovesicular junction with mild left hydroureteronephrosis. 2. Likely intermittent/partial small bowel obstruction secondary to a volvulus with at least 360 degrees twist of the distalmost small bowel immediately proximal to ileocolic anastomosis with no interval change in mild dilation of a few loops of more proximal small bowel. 3. Prominent dilation of the gallbladder to 6.5 cm but without evident wall thickening or pericholecystic infiltrate stranding to more specifically suggest acute cholecystitis. Correlate with the right upper quadrant ultrasound or HIDA scan. 4. Very small right and trace left pleural effusions and minimal perihepatic ascites. Abdomen Ultrasound 11/15/24 09:16 IMPRESSION: Fatty infiltration of the liver. Hydropic, fluid-filled gallbladder with dependent stones suspected. Hepatobiliary Scan Nuclear Medicine 11/15/24 15:34 IMPRESSION: 1. Normal hepatobiliary scan. Brain MRI 11/16/24 14:12 IMPRESSION: 1. No significant change in chronic infarcts, the largest involving the plantar to the right middle cerebral and portions of the anterior cerebral artery vasc ular distribution. No acute intracranial process. Chest X-Ray 11/17/24 15:19 IMPRESSION: Tip of the temporary dialysis catheter is at the cavoatrial junction. Lumbar Puncture Fluoroscopy 11/17/24 16:59 IMPRESSION: 1. Successful fluoro-guided lumbar puncture with normal opening pressure of 19 cm water. Abdomen X-Ray 11/20/24 14:45 IMPRESSION: Distended bowel loops which may indicate obstruction. Follow-up advised. Bilateral double-J stents. Enema w/Water Soluble 11/21/24 12:03 IMPRESSION: 1. Short segment of relatively narrowed small bowel immediately proximal to a pelvic ileocolic anastomosis with location and appearance of the narrowed segment consistent with 360 degrees twist in the bowel as seen on prior CT. There is however no significant secondary fixed obstruction with transient distention of the segment of bowel to a normal caliber with passage of contrast initially retrograde into the more proximal colon and subsequently antegrade during evacuation of the contrast. Labs Labs: Laboratory Results - last 24 hr 11/23/24 11/23/24 11/23/24 11:49 17:26 23:28 WBC RBC Hgb Hct MCV MCH MCHC RDW Plt Count MPV Immature Gran % (Auto) Neut % (Auto) Lymph % (Auto) [place] % (Auto) Eos % (Auto) Baso % (Auto) Lymph # (Auto) [place] # (Auto) Eos # (Auto) Baso # (Auto) Abs Immat Gran (auto) Absolute Neuts (auto) Absolute Nucleated RBC Nucleated RBC % Sodium Potassium Chloride Carbon Dioxide Anion Gap BUN Creatinine Estim Creat Clear Calc Estimated GFR Glucose POC Capillary Glucose 138 H 128 H 134 H Calcium Magnesium Total Bilirubin AST ALT Alkaline Phosphatase Total Protein Albumin 11/24/24 11/24/24 11/24/24 05:40 05:52 11:26 WBC 9.2 RBC 3.27 L Hgb 9.2 L Hct 29.8 L MCV 91.1 MCH 28.1 MCHC 30.9 L RDW 14.9 H Plt Count 168 MPV 9.2 Immature Gran % (Auto) 2.3 H Neut % (Auto) 75.2 H Lymph % (Auto) 11.6 L [place] % (Auto) 6.4 Eos % (Auto) 4.2 Baso % (Auto) 0.3 Lymph # (Auto) 1.06 [place] # (Auto) 0.6 Eos # (Auto) 0.4 H Baso # (Auto) 0.0 Abs Immat Gran (auto) 0.21 H Absolute Neuts (auto) 6.9 H Absolute Nucleated RBC 0.000 Nucleated RBC % 0.0 Sodium 143 Potassium 4.4 Chloride 106 Carbon Dioxide 29 Anion Gap 8 BUN 64 H Creatinine 3.66 H Estim Creat Clear Calc 22 Estimated GFR 17 L Glucose 132 H POC Capillary Glucose 130 H 134 H Calcium 8.8 Magnesium 1.7 Total Bilirubin 0.6 AST 32 ALT 24 Alkaline Phosphatase 138 H Total Protein 6.1 L Albumin 3.0 L
--- NOTE | 2024-11-24 12:12 | WNDPHOTO ---
PHOTO ONLY - See Nursing Notes and/ or assessments for documentation.
== END 2024-11-24 13:25 | DRG 659 ==
LOC: ANHED 17:51 → ANHIMU 18:31 → ANH2MED 18:36 → ANHIMU 18:49 → ANH3MEDSUR 11-20 18:22
PROVIDERS: Internal Medicine; Internal Medicine Nephrology; Student in an Organized Health Care Education/Training Program; Surgery; Urology; Admitting Provider Family Medicine; Emergency Provider Emergency Medicine; Visit Provider Internal Medicine
PROC: 0T788DZ Dilation of Bilateral Ureters with Intraluminal Device, Via Natural or Artificial Opening Endoscopic (ICD-10-PCS; CPT 52352; principal; 2024-11-16 09:00)
DX: N17.9 Acute kidney failure, unspecified (principal); G93.41 Metabolic encephalopathy; K56.600 Partial intestinal obstruction, unspecified as to cause; K82.1 Hydrops of gallbladder; I69.354 Hemiplegia and hemiparesis following cerebral infarction affecting left non-dominant side; E11.649 Type 2 diabetes mellitus with hypoglycemia without coma; E86.0 Dehydration; N28.9 Disorder of kidney and ureter, unspecified; N20.0 Calculus of kidney; N13.30 Unspecified hydronephrosis; I25.10 Atherosclerotic heart disease of native coronary artery without angina pectoris; N40.0 Benign prostatic hyperplasia without lower urinary tract symptoms; J44.9 Chronic obstructive pulmonary disease, unspecified; G47.33 Obstructive sleep apnea (adult) (pediatric); I95.9 Hypotension, unspecified; E86.1 Hypovolemia; D63.1 Anemia in chronic kidney disease; K82.8 Other specified diseases of gallbladder; I10 Essential (primary) hypertension; F17.210 Nicotine dependence, cigarettes, uncomplicated; Z66 Do not resuscitate; Z79.4 Long term (current) use of insulin; Z95.5 Presence of coronary angioplasty implant and graft; E66.9 Obesity, unspecified; Z68.31 Body mass index [BMI] 31.0-31.9, adult; Z85.038 Personal history of other malignant neoplasm of large intestine
CPT/HCPCS: 36415; 62328; 70450; 70551; 71045; 71250; 74018; 74176; 74270; 74420; 76705; 76775; 78227; 80048; 80053; 81001; 82140; 82365; 82550; 82570; 82945; 82948; 83036; 83605; 83615; 83735; 84100; 84133; 84145; 84156; 84157; 84300; 84466; 84478; 84540; 85025; 85610; 85730; 85999; 86140; 86592; 86617; 86704; 86706; 86788; 86789; 87040; 87070; 87086; 87340; 87529; 87798; 88108; 88300; 89051; 92610; 93005; 94640; 95816; 96365; 99285; A9270; A9537; C1751; C1752; C1769; C2617; G0257; J0696; J1100; J1644; J1836; J1939; J2003; J2270; J2371; J2405; J2470; J2704; J2805; J7030; J7120; Q5105; Q9966

== ENCOUNTER 2024-12-03 16:36 | Inpatient (IN) | payer MEDICARE, OTHER, MEDICAID, SELFPAY ==
[2024-12-03] VITALS (27 sets, daily range): BP systolic 93–110; BP diastolic 42–57; PULSE 60–94; RESP 16–24; TEMP 38.5–39.7; O2SAT 94–100
--- NOTE | ~2024-12-03 | XR_ITS ---
XR chest 1V portable 12/06/2024 08:20 Indication: Shortness of breath Procedure: AP portable chest Comparison: 11/13/2024 Findings: Perihilar infiltrates bilaterally. No significant effusion. There is retrocardiac opacifica tion which may represent atelectasis or pneumonia. No pneumothorax. Impression: 1: Bilateral perihilar and basilar infiltrates which may represent mild edema, pneumonia and/or atele ctasis. No significant change from 12/05/2024. Reviewed, dictated and finalized at location [] Impression: 1: Bilateral perihilar and basilar infiltrates which may represent mild edema, pneumonia and/or atelectasis. No significant change from 12/05/2024.
--- NOTE | ~2024-12-03 | US_ITS ---
EXAMINATION: US venous doppler E DATE: 12/05/2024 19:35 INDICATION: Edema . TECHNIQUE: Grayscale ultrasound images without and with compression and Doppler ultrasound images of the bilateral upper extremity veins were obtained. COMPARISON: None. FINDINGS: The right cephalic vein is noncompressible, with no internal flow. The visualized portions of the michelle ateral internal jugular veins, subclavian veins, axillary vein is, brachial veins, basilic veins, rad ial veins, and ulnar veins are patent. The left cephalic vein is patent. IMPRESSION: Right cephalic DVT. No DVT detected in the left upper extremity. Reviewed, dictated and finalized at location K.
--- NOTE | ~2024-12-03 | XR_ITS ---
INTRAOPERATIVE FLUOROSCOPY: CLINICAL HISTORY: 69 years old Male; INSERTION TUNNEL DIALYSIS CATHETER PROCEDURE COMMENTS: Limited intraoperative fluoroscopy of the chest was performed. CUMULATIVE DOSE: 29 mGy FLUOROSCOPY TIME: 1 minute 46 seconds FINDINGS/IMPRESSION: Please refer to operative note for further details. Reviewed, dictated and finalized at location A.
--- NOTE | ~2024-12-03 | XR_ITS ---
Exam: Abdomen 1V HISTORY: ngt placement verification COMPARISON: None. TECHNIQUE: Supine images of the lower chest and upper abdomen FINDINGS: Nasogastric tube extends into the left upper quadrant, presumably within the stomach. Bilateral double-J stents are also noted. IMPRESSION: Nasogastric tube in good position and ready for immediate use. Reviewed, dictated and finalized at location A.
--- NOTE | ~2024-12-03 | US_ITS ---
EXAMINATION: US venous doppler UE DATE: 12/13/2024 15:04 INDICATION: Follow-up recent cephalic vein thrombosis TECHNIQUE: Grayscale images without and with compression and Doppler images of the bilateral upper ex tremity veins were obtained. COMPARISON: 12/05/2024 FINDINGS: The right cephalic vein is now patent and compressible. The right internal jugular vein, subclavian v ein, axillary vein, brachial vein, basilic vein, radial vein, and ulnar vein remain patent. Noncompressible thrombus in the left cephalic vein. The left radial and ulnar veins are noted is nonc ompressible by the blacksmith hammer operator however this is difficult to definitively determine on comparison of t he compressed and noncompressed images due to the presence of significant hypoechoic edema in the henry rounding soft tissues. The left internal jugular vein, subclavian vein, axillary vein, brachial vein and basilic vein. IMPRESSION: 1. Patent veins in the right upper limb with resolution of prior right cephalic vein thrombosis. 2. New noncompressible thrombus in the left cephalic vein, potentially also in the left ulnar and rad ial veins however assessment in these vessels is limited by the small size of the vessels and the pre sence of significant surrounding soft tissue edema. Reviewed, dictated and finalized at location A. IMPRESSION: 1. Patent veins in the right upper limb with resolution of prior right cephalic vein thrombosis. 2. New noncompressible thrombus in the left cephalic vein, potentially also in the left ulnar and radial veins however assessment in these vessels is limited by the small size of the vessels and the presence of significant surrounding so ft tissue edema.
--- NOTE | ~2024-12-03 | XR_ITS ---
XR chest 1V portable 12/13/2024 09:02 Indication: Dyspnea Procedure: AP portable chest Comparison: 12/07/2024 Findings: Heart size normal. No focal air space disease, pulmonary edema, pleural effusion or suspect ed pneumothorax. Right IJ central venous catheter tip near the condyle aspect of the SVC. Heart size normal. No focal air space disease, pulmonary edema, pleural effusion or suspected pneumothorax. Impression: 1: No acute cardiopulmonary disease. Reviewed, dictated and finalized at location A. Impression: 1: No acute cardiopulmonary disease.
--- NOTE | ~2024-12-03 | XR_ITS ---
XR chest 1V portable 12/05/2024 10:53 Indication: Hypoxia Procedure: AP portable chest Comparison: Comparison to multiple prior studies sequentially, with oldest reviewed study dated 10/2024. Findings: Bibasilar airspace disease is persistent which may represent atelectasis or pneumonia. No s ignificant effusion. No pneumothorax. The lungs are hyperinflated which is consistent with, but not d iagnostic of chronic obstructive pulmonary disease. Impression: 1: Bibasilar airspace disease which may represent atelectasis and/or pneumonia. No significant change compared with 12/03/2024. Reviewed, dictated and finalized at location B. Impression: 1: Bibasilar airspace disease which may represent atelectasis and/or pneumonia. No significant change compared with 12/03/2024.
--- NOTE | ~2024-12-03 | XR_ITS ---
CHEST RADIOGRAPH CLINICAL HISTORY: INSERTION TUNNEL DIALYSIS CATHETER . COMPARISON: None available TECHNIQUE: Single portable view of the chest. FINDINGS Tunneled right internal jugular hemodialysis catheter is present with its tip projecting over the rig ht atrium. The remainder of the cardiomediastinal silhouette is otherwise unremarkable. Increased interstitial markings are identified bilaterally, findings suggesting mild pulmonary vascul ar congestion. Blunting of the left costophrenic sulcus suggesting a small left-sided pleural effusion. The remainder of the lungs are clear. IMPRESSION: Mild pulmonary vascular congestion with a small left-sided pleural effusion. Right internal jugular tunnelled hemodialysis catheter in position and ready for immediate use. Reviewed, dictated and finalized at location A. IMPRESSION: Mild pulmonary vascular congestion with a small left-sided pleural effusion. Right internal jugular tunnelled hemodialysis catheter in position and ready fo r immediate use.
--- NOTE | ~2024-12-03 | CT_ITS ---
EXAMINATION: CT chest abdomen pelvis wo con DATE: 12/03/2024 21:36 INDICATION: Poor kidney function TECHNIQUE: Computed tomography (CT) of the chest, abdomen, and pelvis was performed without intraveno us contrast. Automated exposure control and iterative reconstruction technique were employed. The dos e-length product was 1824.84 mGy-cm. COMPARISON: 11/15/2024 and 11/07/2023 FINDINGS: CHEST CT: Worsening consolidation and surrounding tree-in-bud opacities in the left lower lobe consistent with pneumonia. Persistent atelectasis/scarring at the dependent right lower lobe. Heart size is normal. A therosclerotic coronary artery calcific location. No pericardial or pleural effusion. Calcified nodul e right lower lobe along with calcified right hilar and mediastinal lymph nodes, a few hepatic and nu merous splenic calcifications, all consistent with old granulomatous disease. Chronic T10 and T11 com pression fractures with mild to moderate thoracic spondylosis. ABDOMEN/PELVIS CT: Pancreas is normal. Unchanged small bilateral adrenal nodules, the largest on the left measuring 1.5 cm which given lack of interval change in the relatively low density consistent with adenomas. Bilate ral internal ureteral stents in expected positions with distal loops formed in the bladder and positi on along side a Huddleston catheter bulb. Proximal to the right inferolateral stent is formed within the r ight renal pelvis. There is increased density in some of the calyces in both kidneys as well as in th e bilateral renal pelvises which could represent stones versus stone fragments or small amount of res idual excreted contrast. Correlate for history of recent contrast utilization. The density in the lef t renal pelvis has a higher attenuation more suspicious for an intact stone and measuring 9 mm in max imal diameter. There is mild to moderate bilateral renal atrophy. No hydronephrosis. Status post subt otal right hemicolectomy with ileocolic anastomosis in the right abdomen. No bowel obstruction. Chron ic mild perirectal stranding. No free intraperitoneal gas or fluid. No pathologically enlarged abdomi nal or pelvic lymphadenopathy. Mild lumbar spondylosis with severe facet osteoarthritis and fusion ac ross the posterior elements of L4 and L5. IMPRESSION: 1. Left lower lobe pneumonia. 2. Mild to moderate bilateral renal atrophy with bilateral renal stents in expected position and matt lar pattern of increased density in the bilateral renal collecting systems which could represent eith er small residual excreted contrast as a recent contrast utilization or stones/stone fragments. Reviewed, dictated and finalized at location A. IMPRESSION: 1. Left lower lobe pneumonia. 2. Mild to moderate bilateral renal atrophy with bilateral renal stents in expe cted position and similar pattern of increased density in the bilateral renal c ollecting systems which could represent either small residual excreted contrast as a recent contrast utilization or stones/stone fragments.
--- NOTE | ~2024-12-03 | MR_ITS ---
EXAMINATION: MR brain/brain stem wo con DATE: 12/06/2024 12:54 INDICATION: Stroke TECHNIQUE: Magnetic resonance imaging (MRI) of the brain and brainstem was performed without intraven ous contrast. Sequences included sagittal and axial T1-weighted SE, axial diffusion-weighted FS SE, a xial 3D SWAN, axial T2-weighted FLAIR, and axial T2-weighted FSE. Apparent diffusion coefficient (ADC ) maps were created. COMPARISON: Head CT dated 12/05/2024 and brain MR dated 11/16/2024 FINDINGS: Again seen is a large region of encephalomalacia involving the majority of the right frontal and temp oral lobes, a significant portion of the right parietal lobe and the right basal ganglia in the vascu lar distribution of the right middle cerebral artery, also likely including portion of the right ante rior cerebral artery vascular distribution. There is a separate small additional region of encephalom alacia consistent with chronic infarct in the right occipital lobe. A couple very small old infarcts in the left frontal lobe. Finally there are couple small old infarcts in the left and right cerebella r hemispheres. These all appear to have been present at the time of the study on 11/21/2022. There are no areas of restricted diffusion to suggest acute infarction. There is asymmetric atrophy l ikely related to Wallerian degeneration of the right thalamus, right cerebral peduncle and right side of the faby. No intracranial hemorrhage or abnormal intracranial mass lesion. A few small scattered foci of nonspecific increased T2-weighted signal intensity in the cerebral white matter, predominantl y involving the deep and periventricular white matter. There are no intraparenchymal signal abnormali ties seen on the other pulse sequences. There is asymmetric mild ex vacuo dilation of the right later al ventricle. There are no abnormal extra-axial fluid collections. Flow voids are seen in the cerebra l arteries on the T2-weighted sequences consistent with their expected patency. The flow void in the right internal carotid artery appears very small which could be due to atherosclerotic disease or mor e likely decreased perfusion requirement secondary to the extensive infarction in the right cerebral hemisphere. Changes of bilateral intraocular lens replacement. IMPRESSION: 1. No significant change in chronic infarcts, the largest involving the plantar to the right middle cerebral and portions of the anterior cerebral artery vascular distribution. No acute intracranial process. 2. Unchanged significant decrease in caliber of the flow void at the right internal carotid artery wh ich could be related to atherosclerosis and stenosis or decreased perfusion requirement secondary to the extensive infarction in the right cerebral hemisphere. Reviewed, dictated and finalized at location A. IMPRESSION: 1. No significant change in chronic infarcts, the largest involving the plantar to the right middle cerebral and portions of the anterior cerebral artery vascular distribution. No acute intracranial process. 2. Unchanged significant decrease in caliber of the flow void at the right inte rnal carotid artery which could be related to atherosclerosis and stenosis or d ecreased perfusion requirement secondary to the extensive infarction in the rig ht cerebral hemisphere.
--- NOTE | ~2024-12-03 | XR_ITS ---
EXAMINATION: XR chest 1V Exam Date/Time: 12/03/2024 18:45 CDT HISTORY: ams, hypoxia Comparison: 11/17/2024; CT cap 11/14/2024. RESULT: Lines, tubes, and devices: None. Lungs and pleura: Slightly increased subsegmental retrocardiac opacity. Stable left hemidiaphragm el evation. Cardiomediastinal silhouette: Stable. Other: No acute osseous or upper abdominal finding. IMPRESSION: Subsegmental left medial basilar atelectasis/consolidation. Reviewed, dictated and finalized at location K.
--- NOTE | ~2024-12-03 | CT_ITS ---
EXAMINATION: CT brain wo con DATE: 12/03/2024 18:44 INDICATION: ams . TECHNIQUE: Computed tomography (CT) of the head was performed without intravenous contrast. The mA wa s adjusted according to patient size. Iterative reconstruction technique was employed. The dose-lengt h product was 681.00 mGy-cm. COMPARISON: 11/14/2024; MR brain 11/16/2024. FINDINGS: No acute intracranial hemorrhage or extra-axial fluid collection. No hydrocephalus, mass, or herniation. No acute ischemic infarct. Unremarkable dural venous sinus attenuation. No acute osseous abnormality. Trace left mastoid fluid, the remaining aerated spaces are clear. Mild atrophy. Large area of encephalomalacia involving the right cerebral hemisphere. 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 Focal encephalomalacia in the left hemisphere near the vertex. Atherosclero tic intracranial calcification. Bilateral lens replacements. IMPRESSION: No acute intracranial process. Reviewed, dictated and finalized at location K.
--- NOTE | ~2024-12-03 | CT_ITS ---
EXAMINATION: CT brain wo con DATE: 12/05/2024 18:01 INDICATION: stroke like symptoms . TECHNIQUE: Computed tomography (CT) of the head was performed without intravenous contrast. The mA wa s adjusted according to patient size. Iterative reconstruction technique was employed. The dose-lengt h product was 832.33 mGy-cm. COMPARISON: 12/03/2024. FINDINGS: No acute intracranial hemorrhage or extra-axial fluid collection. No hydrocephalus, mass, or herniation. No acute ischemic infarct. Unremarkable dural venous sinus attenuation. No acute osseous abnormality. Minimal left mastoid fluid, the remaining aerated spaces are clear. Large area of stable encephalomalacia in the right hemisphere. Ex vacuo dilation of the right lateral ventricle, stable. Small stable foci of encephalomalacia in the left posterior frontal lobe and left parietal lobe near the vertex. Focal old bilateral cerebellar infarcts. Mild atrophy and chronic whi te matter change. Atherosclerotic intracranial calcification. Bilateral lens replacements. IMPRESSION: No acute intracranial process. Results reported telephonically to Kareen Avila RN by Dr. Medrano at 6:06 PM on 12/05/2024. Reviewed, dictated and finalized at location K.
--- NOTE | ~2024-12-03 | US_ITS ---
EXAMINATION: US renal BI DATE: 12/09/2024 17:20 INDICATION: BRYCE TECHNIQUE: Multiple grayscale and Doppler ultrasound images of the kidneys were obtained. COMPARISON: CT cap 12/03/2024 FINDINGS: Limited examination due to patient condition, body habitus, and bowel gas The right kidney measures 1 3.0 x 5.3 x 4.2 cm. The left kidney measures 11.9 x 4.3 x 4.6 cm. The kidneys demonstrate normal pare nchymal echogenicity. There is no hydronephrosis. The bladder is decompressed by a Huddleston catheter and therefore incompletely evaluated. IMPRESSION: Unremarkable renal sonogram findings. Reviewed, dictated and finalized at location K.
--- NOTE | 2024-12-03 16:48 | ED.AMS ---
HPI - Altered Mental Status General Chief Complaint: Altered Mental Status <Almaz Boyle MD - Last Filed: 12/03/24 21:23> Stated Complaint: code sepsis <Almaz Boyle MD - Last Filed: 12/03/24 21:23> Time Seen by Provider: 12/03/24 21:16 <Almaz Boyle MD - Last Filed: 12/03/24 21:23> Source: EMS <Almaz Boyle MD - Last Filed: 12/03/24 21:23> Mode of arrival: EMS <Almaz Boyle MD - Last Filed: 12/03/24 21:23> Limitations: clinical condition <Almaz Boyle MD - Last Filed: 12/03/24 21:23> History of Present Illness HPI narrative: Patient presents with report of altered mental status. He had recently been hospitalized here. Was reported that he was up for breakfast although his baseline mentation is unknown. He had recently been admitted for an BRYCE. History of CVA. Reportedly DNR DNI. <Almaz Boyle MD - Last Filed: 12/03/24 21:23> Related Data Home Medications: Home Medications ?Medication ?Instructions ?Recorded ?Confirmed ?Last Taken ?Type acetaminophen 325 mg tablet 650 mg PO Q8H PRN Pain, Mild 11/07/23 11/13/24 Unknown History albuterol sulfate 90 mcg/actuation 2 puff inhalation Q4H PRN Wheezing 11/07/23 11/13/24 Unknown History aerosol inhaler aspirin 81 mg tablet,delayed 81 mg PO DAILY 11/07/23 11/13/24 11/06/23 History release cabergoline 0.5 mg tablet 0.5 mg PO 2XW 11/07/23 11/13/24 11/05/23 History carboxymethylcellulose sodium 0.5 1 drp EACH EYE QID PRN Dry Eyes 11/07/23 11/13/24 Unknown History % eye drops in a dropperette (Refresh Plus) carvedilol 3.125 mg tablet 3.125 mg PO BID 11/07/23 11/13/24 11/06/23 History dextromethorphan-guaifenesin 10 10 ml PO Q4-6H PRN Cough 11/07/23 11/13/24 Unknown History mg-100 mg/5 mL oral syrup escitalopram oxalate 20 mg tablet 15 mg PO QAM 11/07/23 11/13/24 11/07/23 History gabapentin 100 mg capsule 100 mg PO TID 11/07/23 11/13/24 11/06/23 History glipizide 5 mg tablet 5 mg PO QAM 11/07/23 11/13/24 11/06/23 History loperamide 2 mg capsule 2 mg PO Q6H PRN Diarrhea 11/07/23 11/13/24 Unknown History (Anti-Diarrheal (loperamide)) melatonin 5 mg tablet 5 mg PO HS 11/07/23 11/13/24 11/06/23 History ondansetron 4 mg disintegrating 4 mg PO Q4H PRN Nausea And Vomiting 11/07/23 11/13/24 Unknown History tablet rosuvastatin 40 mg tablet 40 mg PO QHS 11/07/23 11/13/24 11/06/23 History sennosides 8.6 mg tablet (Senokot) 8.6 mg PO PRN PRN Constipation 11/07/23 11/13/24 Unknown History tamsulosin 0.4 mg capsule 0.4 mg PO QAM 11/07/23 11/13/24 11/06/23 History tiotropium bromide 2.5 2 puff inhalation QAM 11/07/23 11/13/24 11/06/23 History mcg/actuation mist for inhalation (Spiriva Respimat) benzonatate 100 mg capsule 100 mg PO TID PRN cough 05/16/24 11/13/24 Unknown History brinzolamide 1 %-brimonidine 0.2 % 1 drp EACH EYE TID 05/18/24 11/13/24 Unknown History eye drops,suspension (Simbrinza) budesonide 160 mcg-glycopyr 9 2 inh inhalation BID 05/18/24 11/13/24 Unknown History mcg-formot 4.8 mcg/actuation HFA inhaler (Breztri Aerosphere) oxycodone 5 mg tablet 5 mg PO QHS pain 05/18/24 11/13/24 Unknown History cholestyramine 4 gram oral powder 4 g PO TID 11/13/24 11/13/24 Unknown History lidocaine 5 % topical patch 1 patch topical DAILY back pain 11/13/24 11/13/24 Unknown History psyllium husk 0.4 gram capsule 0.4 g PO DAILY PRN constipation 11/13/24 11/13/24 Unknown History (Fiber (psyllium husk)) <Almaz Boyle MD - Last Filed: 12/03/24 21:23> Allergies/Adverse Reactions: Allergies Allergy/AdvReac Type Severity Reaction Status Date / Time hydralazine AdvReac Vomiting Verified 11/13/24 14:12 lisinopril AdvReac Rash Verified 11/13/24 14:12 metformin AdvReac Diarrhea Verified 11/13/24 14:12 pioglitazone AdvReac Nausea Verified 11/13/24 14:12 simvastatin AdvReac Rash Verified 11/13/24 14:12 <Almaz Boyle MD - Last Filed: 12/03/24 21:23> [facility] Past Medical History Medical History: Medical History Chronic right arterial ischemic stroke, MCA (middle cerebral artery) Coronary artery disease Benign prostatic hyperplasia Tobacco abuse Chronic obstructive pulmonary disease Obstructive sleep apnea Intolerant of CPAP Hypertension Type 2 diabetes mellitus Cerebrovascular accident <Almaz Boyle MD - Last Filed: 12/03/24 21:23> Surgical History Surgical History: Surgical History (Updated 11/20/24 @ 14:07 by Anam Daniel DO) S/P total colectomy Laparoscopic subtotal colectomy with ileorectal anastomosis 12/25/[address] Uche Laurent at [facility] History of coronary artery stent placement History of cardiac catheterization <Almaz Boyle MD - Last Filed: 12/03/24 21:23> Family History Family History: Family History Other Family history non-contributory <Almaz Boyle MD - Last Filed: 12/03/24 21:23> Social History Social History: Social History (Updated 12/03/24 @ 17:37 by Almaz Boyle MD) Social History: Surrogate medical decision maker: Clarita Hobbs, mother. Code status: POLST signed 11/26/21 indicates DNR (Do not resusictate) with comfort-focused treatment Smoking packs per day: 1 Smoking cigarettes per day: 20.0 Years smoked: 50 Smoking pack-years: 50.00 Smoking status: Current every day smoker Tobacco type: cigarettes Alcohol intake: former Substance use: never Do You Feel Safe in your Home?: Yes Lack of Transportation: No Lack of Food: Never True Current Housing: I Have Housing Concerned About Future Housing: No Difficulty Paying Gas/Electric Bills: No Difficulty Paying for Meds: No Currently Unemployed: No Education: High School Diploma/GED Difficulty w/ Childcare or Family Care: No Additional living arrangements comments: Resident at [facility]. 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 Spiritual care concerns: No <Almaz Boyle MD - Last Filed: 12/03/24 21:23> Exam Narrative: GENERAL: Ill-appearing, HEAD: Normocephalic, atraumatic. EYES: Non injected, non icteric. Pin point pupil on the R. Asymmetric pupil 4mm on the left, non reactive. ENT: No epistaxis. Dry mucous membranes NECK: Supple. No meningismus. CHEST: Poor air movement HEART: Regular rate and rhythm. . ABDOMEN: Soft, nondistended. No rigidity or guarding. Not peritoneal SKIN: Warm (febrile), dry, no rash. NEURO:Not alert, not responsive to painful stimuli <Almaz Boyle MD - Last Filed: 12/03/24 21:23> Course Reevaluation(s) Reevaluation #1: 69M signed out pending imaging, dispo. CT shows MFC PNA and possible aspiration; ureteral stents in place. I did review he has a valid POLST showing DNR/DNI/comfort care. I did call his mom and left VM; at this time without response from her, we will uphold POLST form and avoid any invasive procedures including CVC per patient's documented wishes. regardless after the 30cc/kg bolus his MAP is now 69, lactate is nl. D/w organic chemistry teacher since pt did have HD done last admission; though currently DNR/DNI/comfort care, may hold off until his POA responds. D/w hospitalist for admission. <Nichelle Mccallum MD - Last Filed: 12/03/24 23:11> Vital Signs Vital signs: Vital Signs Temperature 101.4 F H 12/03/24 16:34 Respiratory Rate 20 12/03/24 16:34 Pulse Oximetry 94 12/03/24 16:34 Oxygen Delivery Room Air 12/03/24 16:34 Temperature 103.0 F H 12/03/24 19:52 Pulse Rate 60 12/03/24 19:52 Respiratory Rate 20 12/03/24 19:52 Blood Pressure 96/49 L 12/03/24 19:52 Pulse Oximetry 99 12/03/24 19:52 Oxygen Delivery Room Air 12/03/24 16:43 <Almaz Boyle MD - Last Filed: 12/03/24 21:23> Vital Signs Temperature 101.4 F H 12/03/24 16:34 Respiratory Rate 20 12/03/24 16:34 Pulse Oximetry 94 12/03/24 16:34 Oxygen Delivery Room Air 12/03/24 16:34 Temperature 103.0 F H 12/03/24 19:52 Pulse Rate 60 12/03/24 19:52 Respiratory Rate 20 12/03/24 19:52 Blood Pressure 96/49 L 12/03/24 19:52 Pulse Oximetry 99 12/03/24 19:52 Oxygen Delivery Room Air 12/03/24 16:43 <Nichelle Mccallum MD - Last Filed: 12/03/24 23:11> MDM - Altered Mental Status MDM Narrative Medical decision making narrative: Patient presents with altered mental status In the emergency department he is febrile with vital signs notable for hypotension and tachycardia. Rectal Tylenol ordered for fever. It is reported that patient has brown colored urine. Catheter exchanged upon arrival. Due to strong concern for sepsis given hypoxia, and fever, protocol ordered including lactic, CRP, bl cultures as well as broad spectrum antibiotics vancomycin cefepime. Procedure Note: Ultrasound-guided peripheral venous catheter insertion An ultrasound-guided peripheral venous catheter is required in order to obtain vascular access in this patient. Alcohol prep pad is used to sterilize the area and a 20 gauge catheter was successfully inserted into the R forearm under ultrasound visualization. The catheter flushes and draws back without difficulty or signs of extravasation. Catheter secured in place with Tegaderm. Lactic acid normal. Cr 4.68; it had been as high as >7 during recent hospitalization when diagnosed with acute renal failure but was 3.66 upon discharge, thus this likely represents BRYCE superimposed on new CKD. BNP approximately 3000, higher than previous. TSH abnormal; T3 and T4 ordered. Troponin elevated; rectal ASA and 3 hour troponin ordered. Patient signed out to oncoming ED physician pending rest of work up including CT chest/abd/pelvis w/o contrast. Will give more IV fluids as he has not made any urine and blood pressures low and w/o obvious volume overload. <Almaz Boyle MD - Last Filed: 12/03/24 21:23> Differential Diagnosis Differential diagnosis: Likely alcoholic intoxication, altered mental status, delirium, dementia, hypoglycemia, hyponatremia, subarachnoid hemorrhage, sepsis and other (thyroid , infection due to UTI, PNA; multiorgan failure; uremia; acute kidney failure; intrathoracic/intraabdominal abscess; meningitis) <Almaz Boyle MD - Last Filed: 12/03/24 21:23> Lab Data Result diagrams: 12/03/24 17:52 12/03/24 17:52 <Almaz Boyle MD - Last Filed: 12/03/24 21:23> Labs: Lab Results 12/03/24 12/03/24 12/03/24 Range/Units 17:52 17:52 17:52 WBC 6.5 (4.5-10.0) K/mm3 RBC 3.44 L (4.6-6.20) M/mm3 Hgb 9.8 L (14.0-18.0) g/dL Hct 32.3 L (42.0-52.0) % MCV 93.9 (80-100) fl MCH 28.5 (26-34) pg MCHC 30.3 L (32-36) g/dl RDW 14.7 H (11.5-14.5) % Plt Count 235 (150-375) k/mm3 MPV 10.2 (7.4-10.4) fl Immature Gran % (Auto) 0.5 (0-0.5) % Neut % (Auto) 77.4 H (45.5-73.1) % Lymph % (Auto) 10.8 L (18.3-44.2) % [place] % (Auto) 7.1 (2.6-8.5) % Eos % (Auto) 3.7 (0-4.4) % Baso % (Auto) 0.5 (0.2-1.2) % Lymph # (Auto) 0.70 L (0.9-3.2) K/mm3 [place] # (Auto) 0.5 (0.1-0.6) K/mm3 Eos # (Auto) 0.2 (0-0.3) K/mm3 Baso # (Auto) 0.0 (0.0-0.1) K/mm3 Abs Immat Gran (auto) 0.03 (0.00-0.031) K/mm3 Absolute Neuts (auto) 5.0 (1.3-6.7) K/mm3 Absolute Nucleated RBC 0.000 (0.0-0.012) K/mm3 Nucleated RBC % 0.0 (0.0-0.2) % PT 13.9 (11.1-14.7) Seconds INR 1.1 APTT 33.2 (22.3-36.8) Seconds Sodium 139 (137-145) mmol/L Potassium 4.0 (3.4-5.0) mmol/L Chloride 102 (98-107) mmol/L Carbon Dioxide 27 (22-30) mmol/L Anion Gap 10 (4-12) mmol/L BUN 36 H D (9-20) mg/dL Creatinine 4.68 H (0.7-1.3) mg/dL Estim Creat Clear Calc 17 ml/min Estimated GFR 13 L (59 - ) Glucose 99 (65-110) mg/dL Lactic Acid 1.3 (0.7-2.0) mmol/L Calcium 8.8 (8.4-10.2) mg/dL Total Bilirubin 0.6 (0.2-1.3) mg/dL AST 49 (17-59) U/L ALT 19 (6-50) U/L Alkaline Phosphatase 141 H (38-126) U/L Ammonia < 9 L (9-30) umol/L Troponin I 0.051 H* Cancelled (0.000-0.034) ng/mL C-Reactive Protein 15.0 H (<1.0) mg/dL NT-Pro-B Natriuret Pep 2950 H Cancelled (19.9-100) pg/mL Total Protein 7.0 (6.3-8.2) g/dL Albumin 3.3 L (3.5-5.1) g/dL Lipase 123 (23-300) U/L TSH 6.770 H (0.465-4.680) uIU/mL Free T4 (0.78-2.19) ng/dL Free T3 pg/mL Ur Random Sodium Urine Creatinine Salicylates (2-20) mg/dL Urine Opiates Screen Urine Methadone Screen Acetaminophen (10-30) ug/mL Ur Barbiturates Screen Ur Phencyclidine Scrn Ur Amphetamine Screen U Benzodiazepines Scrn Urine Cocaine Screen U Cannabinoids Screen Ethyl Alcohol (<10) mg/dL Influenza A (RT-PCR) (Negative) Influenza B (RT-PCR) (Negative) RSV (RT-PCR) (Negative) SARS-CoV-2 RNA (RT-PCR) (Negative) 12/03/24 12/03/24 12/03/24 Range/Units 17:52 19:15 22:32 WBC (4.5-10.0) K/mm3 RBC (4.6-6.20) M/mm3 Hgb (14.0-18.0) g/dL Hct (42.0-52.0) % MCV (80-100) fl MCH (26-34) pg MCHC (32-36) g/dl RDW (11.5-14.5) % Plt Count (150-375) k/mm3 MPV (7.4-10.4) fl Immature Gran % (Auto) (0-0.5) % Neut % (Auto) (45.5-73.1) % Lymph % (Auto) (18.3-44.2) % [place] % (Auto) (2.6-8.5) % Eos % (Auto) (0-4.4) % Baso % (Auto) (0.2-1.2) % Lymph # (Auto) (0.9-3.2) K/mm3 [place] # (Auto) (0.1-0.6) K/mm3 Eos # (Auto) (0-0.3) K/mm3 Baso # (Auto) (0.0-0.1) K/mm3 Abs Immat Gran (auto) (0.00-0.031) K/mm3 Absolute Neuts (auto) (1.3-6.7) K/mm3 Absolute Nucleated RBC (0.0-0.012) K/mm3 Nucleated RBC % (0.0-0.2) % PT (11.1-14.7) Seconds INR APTT (22.3-36.8) Seconds Sodium (137-145) mmol/L Potassium (3.4-5.0) mmol/L Chloride (98-107) mmol/L Carbon Dioxide (22-30) mmol/L Anion Gap (4-12) mmol/L BUN (9-20) mg/dL Creatinine (0.7-1.3) mg/dL Estim Creat Clear Calc ml/min Estimated GFR (59 - ) Glucose (65-110) mg/dL Lactic Acid (0.7-2.0) mmol/L Calcium (8.4-10.2) mg/dL Total Bilirubin (0.2-1.3) mg/dL AST (17-59) U/L ALT (6-50) U/L Alkaline Phosphatase (38-126) U/L Ammonia (9-30) umol/L Troponin I (0.000-0.034) ng/mL C-Reactive Protein (<1.0) mg/dL NT-Pro-B Natriuret Pep (19.9-100) pg/mL Total Protein (6.3-8.2) g/dL Albumin (3.5-5.1) g/dL Lipase (23-300) U/L TSH Cancelled (0.465-4.680) uIU/mL Free T4 1.24 (0.78-2.19) ng/dL Free T3 pg/mL Pending Ur Random Sodium Pending Urine Creatinine Pending Salicylates < 1.0 L (2-20) mg/dL Urine Opiates Screen Pending Urine Methadone Screen Pending Acetaminophen < 10 L (10-30) ug/mL Ur Barbiturates Screen Pending Ur Phencyclidine Scrn Pending Ur Amphetamine Screen Pending U Benzodiazepines Scrn Pending Urine Cocaine Screen Pending U Cannabinoids Screen Pending Ethyl Alcohol < 10 (<10) mg/dL Influenza A (RT-PCR) Negative (Negative) Influenza B (RT-PCR) Negative (Negative) RSV (RT-PCR) Negative (Negative) SARS-CoV-2 RNA (RT-PCR) Negative (Negative) <Almaz Boyle MD - Last Filed: 12/03/24 21:23> Lab Results 12/03/24 12/03/24 12/03/24 Range/Units 17:52 17:52 17:52 WBC 6.5 (4.5-10.0) K/mm3 RBC 3.44 L (4.6-6.20) M/mm3 Hgb 9.8 L (14.0-18.0) g/dL Hct 32.3 L (42.0-52.0) % MCV 93.9 (80-100) fl MCH 28.5 (26-34) pg MCHC 30.3 L (32-36) g/dl RDW 14.7 H (11.5-14.5) % Plt Count 235 (150-375) k/mm3 MPV 10.2 (7.4-10.4) fl Immature Gran % (Auto) 0.5 (0-0.5) % Neut % (Auto) 77.4 H (45.5-73.1) % Lymph % (Auto) 10.8 L (18.3-44.2) % [place] % (Auto) 7.1 (2.6-8.5) % Eos % (Auto) 3.7 (0-4.4) % Baso % (Auto) 0.5 (0.2-1.2) % Lymph # (Auto) 0.70 L (0.9-3.2) K/mm3 [place] # (Auto) 0.5 (0.1-0.6) K/mm3 Eos # (Auto) 0.2 (0-0.3) K/mm3 Baso # (Auto) 0.0 (0.0-0.1) K/mm3 Abs Immat Gran (auto) 0.03 (0.00-0.031) K/mm3 Absolute Neuts (auto) 5.0 (1.3-6.7) K/mm3 Absolute Nucleated RBC 0.000 (0.0-0.012) K/mm3 Nucleated RBC % 0.0 (0.0-0.2) % PT 13.9 (11.1-14.7) Seconds INR 1.1 APTT 33.2 (22.3-36.8) Seconds Sodium 139 (137-145) mmol/L Potassium 4.0 (3.4-5.0) mmol/L Chloride 102 (98-107) mmol/L Carbon Dioxide 27 (22-30) mmol/L Anion Gap 10 (4-12) mmol/L BUN 36 H D (9-20) mg/dL Creatinine 4.68 H (0.7-1.3) mg/dL Estim Creat Clear Calc 17 ml/min Estimated GFR 13 L (59 - ) Glucose 99 (65-110) mg/dL Lactic Acid 1.3 (0.7-2.0) mmol/L Calcium 8.8 (8.4-10.2) mg/dL Total Bilirubin 0.6 (0.2-1.3) mg/dL AST 49 (17-59) U/L ALT 19 (6-50) U/L Alkaline Phosphatase 141 H (38-126) U/L Ammonia < 9 L (9-30) umol/L Troponin I 0.051 H* Cancelled (0.000-0.034) ng/mL C-Reactive Protein 15.0 H (<1.0) mg/dL NT-Pro-B Natriuret Pep 2950 H Cancelled (19.9-100) pg/mL Total Protein 7.0 (6.3-8.2) g/dL Albumin 3.3 L (3.5-5.1) g/dL Lipase 123 (23-300) U/L TSH 6.770 H (0.465-4.680) uIU/mL Free T4 (0.78-2.19) ng/dL Free T3 pg/mL Ur Random Sodium Urine Creatinine Salicylates (2-20) mg/dL Urine Opiates Screen Urine Methadone Screen Acetaminophen (10-30) ug/mL Ur Barbiturates Screen Ur Phencyclidine Scrn Ur Amphetamine Screen U Benzodiazepines Scrn Urine Cocaine Screen U Cannabinoids Screen Ethyl Alcohol (<10) mg/dL Influenza A (RT-PCR) (Negative) Influenza B (RT-PCR) (Negative) RSV (RT-PCR) (Negative) SARS-CoV-2 RNA (RT-PCR) (Negative) 12/03/24 12/03/24 12/03/24 Range/Units 17:52 19:15 22:32 WBC (4.5-10.0) K/mm3 RBC (4.6-6.20) M/mm3 Hgb (14.0-18.0) g/dL Hct (42.0-52.0) % MCV (80-100) fl MCH (26-34) pg MCHC (32-36) g/dl RDW (11.5-14.5) % Plt Count (150-375) k/mm3 MPV (7.4-10.4) fl Immature Gran % (Auto) (0-0.5) % Neut % (Auto) (45.5-73.1) % Lymph % (Auto) (18.3-44.2) % [place] % (Auto) (2.6-8.5) % Eos % (Auto) (0-4.4) % Baso % (Auto) (0.2-1.2) % Lymph # (Auto) (0.9-3.2) K/mm3 [place] # (Auto) (0.1-0.6) K/mm3 Eos # (Auto) (0-0.3) K/mm3 Baso # (Auto) (0.0-0.1) K/mm3 Abs Immat Gran (auto) (0.00-0.031) K/mm3 Absolute Neuts (auto) (1.3-6.7) K/mm3 Absolute Nucleated RBC (0.0-0.012) K/mm3 Nucleated RBC % (0.0-0.2) % PT (11.1-14.7) Seconds INR APTT (22.3-36.8) Seconds Sodium (137-145) mmol/L Potassium (3.4-5.0) mmol/L Chloride (98-107) mmol/L Carbon Dioxide (22-30) mmol/L Anion Gap (4-12) mmol/L BUN (9-20) mg/dL Creatinine (0.7-1.3) mg/dL Estim Creat Clear Calc ml/min Estimated GFR (59 - ) Glucose (65-110) mg/dL Lactic Acid (0.7-2.0) mmol/L Calcium (8.4-10.2) mg/dL Total Bilirubin (0.2-1.3) mg/dL AST (17-59) U/L ALT (6-50) U/L Alkaline Phosphatase (38-126) U/L Ammonia (9-30) umol/L Troponin I (0.000-0.034) ng/mL C-Reactive Protein (<1.0) mg/dL NT-Pro-B Natriuret Pep (19.9-100) pg/mL Total Protein (6.3-8.2) g/dL Albumin (3.5-5.1) g/dL Lipase (23-300) U/L TSH Cancelled (0.465-4.680) uIU/mL Free T4 1.24 (0.78-2.19) ng/dL Free T3 pg/mL Pending Ur Random Sodium Pending Urine Creatinine Pending Salicylates < 1.0 L (2-20) mg/dL Urine Opiates Screen Pending Urine Methadone Screen Pending Acetaminophen < 10 L (10-30) ug/mL Ur Barbiturates Screen Pending Ur Phencyclidine Scrn Pending Ur Amphetamine Screen Pending U Benzodiazepines Scrn Pending Urine Cocaine Screen Pending U Cannabinoids Screen Pending Ethyl Alcohol < 10 (<10) mg/dL Influenza A (RT-PCR) Negative (Negative) Influenza B (RT-PCR) Negative (Negative) RSV (RT-PCR) Negative (Negative) SARS-CoV-2 RNA (RT-PCR) Negative (Negative) <Nichelle Mccallum MD - Last Filed: 12/03/24 23:11> ABG Data ABG results: 12/03/24 22:25 Puncture Site Right radial ABG pH 7.305 L ABG pCO2 43.2 ABG pO2 50.6 L ABG PO2/FiO2 Ratio 1.81 ABG HCO3 21.0 L ABG O2 Saturation 82.3 L* ABG O2 Content 10.9 L ABG Base Excess -5.0 A-a Gradient 98.1 Oxyhemoglobin 84.3 L* Total Hemoglobin 9.2 L O2 Delivery Device Nasal cannula O2 Liters/Min 2.0 FiO2 28 <Almaz Boyle MD - Last Filed: 12/03/24 21:23> 12/03/24 22:25 Puncture Site Right radial ABG pH 7.305 L ABG pCO2 43.2 ABG pO2 50.6 L ABG PO2/FiO2 Ratio 1.81 ABG HCO3 21.0 L ABG O2 Saturation 82.3 L* ABG O2 Content 10.9 L ABG Base Excess -5.0 A-a Gradient 98.1 Oxyhemoglobin 84.3 L* Total Hemoglobin 9.2 L O2 Delivery Device Nasal cannula O2 Liters/Min 2.0 FiO2 28 <Nichelle Mccallum MD - Last Filed: 12/03/24 23:11> Imaging Data Radiologist's impression: IMPRESSION: No acute intracranial process. IMPRESSION: Subsegmental left medial basilar atelectasis/consolidation. <Almaz Boyle MD - Last Filed: 12/03/24 21:23> ECG Data EKG #1: Attestation: I personally reviewed and interpreted this ECG as follows: <Almaz Boyle MD - Last Filed: 12/03/24 21:23> ECG completion date: 12/03/24 <Almaz Boyle MD - Last Filed: 12/03/24 21:23> ECG completion time: 16:59 <Almaz Boyle MD - Last Filed: 12/03/24 21:23> Interpretation: Normal sinus rhythm at a rate of 72 beats per minute. FL interval is prolonged at 220 milliseconds consistent with a first-degree AV block. QRS 90. QT/QTC 380/4 04. No T-wave inversions. <Almaz Boyle MD - Last Filed: 12/03/24 21:23> Discharge Plan Discharge Clinical Impression: Acute kidney injury superimposed on CKD, Encephalopathy, CRP elevated, Non-ST elevation ND (NSTEMI), Febrile <Almaz Boyle MD - Last Filed: 12/03/24 21:23> Patient Disposition: Still a Patient <Almaz Boyle MD - Last Filed: 12/03/24 21:23> Condition: Serious <Almaz Boyle MD - Last Filed: 12/03/24 21:23> Patient Language: Bahraini <Almaz Boyle MD - Last Filed: 12/03/24 21:23> Prescriptions: No Action benzonatate 100 mg capsule 100 mg PO TID PRN (Reason: cough ) [facility] Skip Hopphere 160-9-4.8 mcg/actuation HFA aerosol inhaler 2 inh INHALATION BID oxycodone 5 mg tablet 5 mg PO QHS Simbrinza 1-0.2 % drops,suspension 1 drp EACH EYE TID insulin glargine [Lantus U-100 Insulin] 100 unit/mL Solution 15 unit subcut HS 15 Days Qty: 2.25 0RF insulin aspart U-100 [Novolog FlexPen U-100 Insulin] 100 unit/mL (3 mL) insulin pen 1 sliding scale dose subcut USEASDIRECTD Qty: 15 2RF Rx Instructions: sliding scale insulin 70-130 - 0 units of insulin 131-180 - 2 units of insulin 181-240 - 4 units of insulin 241- 300- 6 units of insulin 301- 350 - 8 units of insulin 351-400 - 10 units of insulin >400 - 12 units of insulin cholestyramine 4 gram powder 4 g PO TID Rx Instructions: administer w/meal; avoid other meds within 1hr before or 4-6hr after dose psyllium husk [Fiber (psyllium husk)] 0.4 gram capsule 0.4 g PO DAILY PRN (Reason: constipation) lidocaine 5 % adhesive patch,medicated 1 patch topical DAILY Rx Instructions: remove at 6 pm sennosides [Senokot] 8.6 mg Tablet 8.6 mg PO PRN PRN (Reason: Constipation) acetaminophen 325 mg Tablet 650 mg PO Q8H PRN (Reason: Pain, Mild) loperamide [Anti-Diarrheal (loperamide)] 2 mg Capsule 2 mg PO Q6H PRN (Reason: Diarrhea) dextromethorphan-guaifenesin 10-100 mg/5 mL Syrup 10 ml PO Q4-6H PRN (Reason: Cough) aspirin 81 mg Tablet,Delayed Release (Dr/Ec) 81 mg PO DAILY carvedilol 3.125 mg Tablet 3.125 mg PO BID Rx Instructions: must administer with a meal/food tamsulosin 0.4 mg Capsule 0.4 mg PO QAM cabergoline 0.5 mg Tablet 0.5 mg PO 2XW Rx Instructions: 1mg, Wednesday and Wednesday gabapentin 100 mg Capsule 100 mg PO TID albuterol sulfate 90 mcg/actuation Hfa Aerosol Inhaler 2 puff INHALATION Q4H PRN (Reason: Wheezing) ondansetron 4 mg Tablet,Disintegrating 4 mg PO Q4H PRN (Reason: Nausea And Vomiting) glipizide 5 mg Tablet 5 mg PO QAM escitalopram oxalate 20 mg Tablet 15 mg PO QAM carboxymethylcellulose sodium [Refresh Plus] 0.5 % Dropperette 1 drp EACH EYE QID PRN (Reason: Dry Eyes) rosuvastatin 40 mg Tablet 40 mg PO QHS melatonin 5 mg Tablet 5 mg PO HS Spiriva Respimat 2.5 mcg/actuation Mist 2 puff INHALATION QAM <Almaz Boyle MD - Last Filed: 12/03/24 21:23> Follow-up/Referrals: Jack,Brandon [Other] <Almaz Boyle MD - Last Filed: 12/03/24 21:23>
--- OUTSIDE RECORDS SUMMARY | 2024-12-03 16:58 | XMS_ITS | Clinical Summary ---
Author Organization [facility] Address [address] [place] [address] Care Team Providers Care Library Acquisitions Technician Name Role Phone None, Provider MD Primary [...] to complete this topic Insurance [facility] MEDICARE Care Teams Library Acquisitions Technician Relationship Specialty Start Date End Date None, Provider, PCP - General 10/10/21
--- OUTSIDE RECORDS SUMMARY | 2024-12-03 16:58 | XMS_ITS | Clinical Summary ---
Author Organization [facility] Address [address] [place] [address] Care Team Providers Care Processing Manager Name Role Phone Ly Valenzuela MD Primary Care Provider [phone] Source Comments [facility],non-owned Affiliates and Associated Physician Practices is amultiple site organization consisting of ambulatory clinics and hospital sitesin [place], [place], [place] and [place]. This disclosure is being madepursuant to the Care Everywhere program and may not contain all information available regarding this patient. Last updated 18.[facility] Allergies Active Allergy Reactions Criticality Noted Date [...] Active vitamin D, ergocalciferol, (Drisdol) 1.25 MG (53497 UT) capsule Take 1 (one) capsule by [...] type,Bradycardia, Carotid occlusion, right,Coronary artery disease involving [place] coronary artery of [place] heart without angina pectoris,JAMES (obstructive sleep apnea),Chronic obstructive pulmonary disease, unspecified COPD type ([facility]),Type 2 diabetes mellitus with stage 2 chronic kidney disease, with long-term current use of insulin ([facility]),Smoker,Carrillo tid stenosis, left Apply 1 [...] Date Recorded PHQ2 TOTAL SCORE 0 12/13/2021 [facility] of Occupat ional Health - Occupational Stress [...] place to sleep or slept in a longterm (including now)? 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 Gender Identity Not on file Sexual Orientation [...] exists COVID-19 VACCINE ( - season) 2024 DEPRESSION SCREENING 05/10/2024 12/11/2021 DIABETES - URINE PROTEIN SCREENING 05/10/2024 11/18/2022 MEDICARE AWV CALENDAR YEAR 2024 DTAP/TDAP/TD VACCINES (3 - Td or Tdap) 07/23/2024 07/23/2014, 12/09/2003 DIABETES RETINOPATHY SCREENING 08/12/2024 08/12/2022, 05/13/2022, 05/13/2022, Additional history exists INFLUENZA VACCINE (#1) 2025 05/10/2006 HEPATITIS B VACCINE Aged Out [...] this topic Medical Devices Implanted Type Area Tobacco Stemmer Device Identifier Shelf Expiration Date Model / Serial / Lot Loop Recorder Loop Recorder [employer] [id number] / [id number] / Procedures Procedure Name Priority Date/Time Associated [...] - 105 mg/dL 11/19/2022 4:32 AM CDT [facility] Sodium 140 136 - 145 mmol/L 11/19/2022 4:32 AM CDT [facility] Potassium 4.8 3.5 - 5.1 mmol/L 11/19/2022 4:32 AM CDT [facility] Chloride 105 98 - 107 mmol/L 11/19/2022 4:32 AM CDT [facility] CO2 26 22 - 29 mmol/L 11/19/2022 4:32 AM CDT [facility] Calcium 9.9 8.4 - 10.4 mg/dL 11/19/2022 4:32 AM CDT [facility] Anion Gap 9 6 - 16 mmol/L 11/19/2022 4:32 AM CDT [facility] BUN 56(H) 7 - 26 mg/dL 11/19/2022 4:32 AM CDT [facility] Creatinine 1.40(H) 0.72 - 1.25 mg/dL 11/19/2022 4:32 AM T [facility] eGFR by CKD-EPI 55(L) >=90 mL/min/1.7 3 m2 11/19/2022 4:32 AM CDT [facility] Blood BLOOD SPECIMEN / Unknown Lab Venipuncture / Unknown 11/19/2022 12:08 AM CDT 11/19/2022 3:50 AM CDT us Zay Perry MD LAB - CHEMISTRY ORDERABLES Final Result [facility] [address] [place] [address] * (ABNORMAL) MICROALB/CREAT RATIO URINE RANDOM PANEL (11/18/2022 2:14 PM CDT) Creatinine Urine 35.49 mg/dL 11/19/19 4:29 PM CDT [facility] Microalbumin Urine 1.9 mg/dL 11/18/2022 4:29 PM CDT [facility] Microalbumin/Crea tinine Ratio 53(H) <30 mg/g 11/18/2022 4:29 PM CDT [facility] Urine URINE SPECIMEN OBTAINED BY CLEAN CATCH PROCEDURE / Unknown Collection / Unknown 11/18/2022 2:14 PM CDT 11/18/2022 3:45 PM CDT us Sacha Ruby DO LAB - URINE CHEMISTRY LAURAE JD Final Result Performing Organization Address City/State/[facility] Co de Phone Number [facility] [address] [place] [address] * (ABNORMAL) HEMOGLOBIN A1C (10/12/2022 10:31 PM CDT) Hemoglobin A1c 7.7(H) <=5.6 % 10/13/2022 8:30 AM T [facility] Estimated Average Glucose 174 mg/dL 10/13/2022 8:30 AM [facility] Comment: HbA1c Interpretation: Normal : < 5.7% Pre-diabetes: 5.7-6.4% Diabetes: Equal to or greater than 6.5% Test results diagnostic of diabetes should be repeated for confirmation. Treatment target values recommended by ADA and other clinical organizations should be used to evaluate metabolic control in patients. Reference: [place] [employer] Association, Standards of Care in Diabetes [...] LAB - CHEMISTRY ORDERABLES Fin al Result [facility] [address] [place] [address], [facility] [phone] from Last 3 Months or Most Recently Relevant to [place] [address] [facility] Agency-Miscellaneous Address: [facility] [id number] [place] [address] [employer] MEDICARE ADV HMO & PPO MEDICARE SELF PAY NO INSURANCE Member Subscriber Plan / Payer (Ef fective for All Dates) Name:Brent Chaparro Member ID:Not on file Relation to Subscriber:Not on file Name:BRENT CHAPARRO Subscriber ID:Not on file (Home) Address: [address] [place] [address] [place] [address] Payer ID:Not on file Group ID:Not on file Type:Self Pay Address: [place], [place] Advance Directives * Full Code (Latest Code Status on File) Date Activated Date Inactivated Comments 10/28/2022 10:18 PM 11/20/2022 8:18 PM * Full Code Date Activated Date Inactivated Comments 10/12/2022 7:38 PM 10/28/2022 9:39 PM * Full Code Date Activated Date Inactivated Comments 12/11/2021 12:36 PM 12/14/2021 5:07 PM Care Teams Processing Manager Relationship Specialty Start Date End Date Ly Valenzuela MD [address] [place] [address] PCP - General 03/06/22
--- OUTSIDE RECORDS SUMMARY | 2024-12-03 16:58 | XMS_ITS | Encounter Summary ---
Author Organization [facility] Address [address] [place] [address] Care Team Providers Care Sales And Service Agent Name Role Phone Ly Valenzuela MD Primary Care Provider [phone] Encounter Details Date Type Department Care Team (Latest Contact Info) Description 10/28/2022 11:43 AM CDT Hospital Encounter [address] [place] [address] Carolina Garibay MD [address] [place] [id number] [employer] Social History Tobacco Use Types [...] Date Recorded PHQ2 TOTAL SCORE 0 12/13/2021 [facility] of Occupat ional Health - Occupational Stress [...] place to sleep or slept in a long term (including now)? 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 Answer Date of Assessment Author No 10/16/2022 4:01 AM Jean Taylor RN * Is person blind or have serious [...] on filedocumented in this encounter Care Teams Sales And Service Agent Relationship Specialty Start Date End Date Ly Valenzuela MD [address] [place] [address] PCP - General 03/06/22 documented as of this encounter
--- OUTSIDE RECORDS SUMMARY | 2024-12-03 16:58 | XMS_ITS | Clinical Summary ---
Author Organization [facility] Address [address] [place] [address] Care Team Providers Care Creative Services Director Name Role Phone Unavailable Primary Care Provider [...] as needed for dry eyes. Active Tiotropium Hutchinson Monohydrate (Spiriva Respimat) 2.5 MCG/ACT aerosol solution Inhale 2 puffs (5 mcg total) RT Daily. Active ergocalciferol (vitamin D2, Ergocalciferol,) 1.25 MG (72722 UT) capsule Take 1 capsule (50,000 Units [...]
--- NOTE | 2024-12-03 16:59 | ECG_ITS ---
Test Date: 2024-12-03 16:59:28 Measurements Intervals [place] Rate: 72 P: 52 [place]: 222 QRS: -4 QRSD: 98 T: 103 QT: 380 QTc: 417 Interpretive Statements SINUS RHYTHM WITH FIRST DEGREE AV BLOCK LOW QRS VOLTAGE [QRS DEFLECTION < 0.5/1.0 mV IN LIMB/CHEST LEADS] POOR R-WAVE PROGRESSION Compared to ECG 11/13/2024 14:24:05 Poor R-wave progression no longer present Electronically Signed On 12-03-2024 18:09:23 CDT by Nolberto Raza M.D.
[2024-12-03] MEDS: CEFEPIME 2 GM in SODIUM CHLORIDE 0.9% IV 50 ML 100 ML IVPB (17:56)
[2024-12-03] MEDS: ACETAMINOPHEN 650 MG SUPPOSITORY RECTAL (17:57)
--- NOTE | 2024-12-03 17:58 | PC.NURSE ---
Blood and cultures drawn by Dr. Boyle with US placement
[2024-12-03 18:08] LABS: Hematocrit 32.3 % (42.0-52.0); Hemoglobin 9.8 g/dL (14.0-18.0); Immature Granulocyte Percent A 0.5 % (0-0.5); Lymphocytes Absolute Auto 0.70 K/mm3 (0.9-3.2); Mean Corpuscular HGB Conc 30.3 g/dl (32-36); Mean Corpuscular Hemoglobin 28.5 pg (26-34); Mean Corpuscular Volume 93.9 fl (80-100); Nucleated Red Blood Cells Absolute Auto 0.000 K/mm3 (0.0-0.012); Nucleated Red Blood Cells Perc 0.0 % (0.0-0.2); Platelet Count Result 235 k/mm3 (150-375); Red Blood Count 3.44 M/mm3 (4.6-6.20); White Blood Count 6.5 K/mm3 (4.5-10.0)
[2024-12-03 18:12] LABS: Ammonia < 9 umol/L (9-30)
[2024-12-03 18:21] LABS: INR 1.1; Prothrombin Time 13.9 Seconds (11.1-14.7)
[2024-12-03 18:22] LABS: Acetaminophen < 10 ug/mL (10-30); Partial Thromboplastin Time 33.2 Seconds (22.3-36.8); Salicylate < 1.0 mg/dL (2-20)
[2024-12-03 18:25] LABS: Alanine Aminotransferase 19 U/L (6-50); Albumin Level 3.3 g/dL (3.5-5.1); Alkaline Phosphatase 141 U/L (38-126); Anion Gap 10 mmol/L (4-12); Aspartate Amino Transferase 49 U/L (17-59); Bilirubin,Total 0.6 mg/dL (0.2-1.3); Blood Urea Nitrogen 36 mg/dL (9-20); Calcium 8.8 mg/dL (8.4-10.2); Carbon Dioxide 27 mmol/L (22-30); Chloride 102 mmol/L (98-107); Estimated CRCL calculation 17 ml/min; Estimated Glomerular Filt Rate 13; Glucose 99 mg/dL (65-110); Lipase 123 U/L (23-300); Potassium 4.0 mmol/L (3.4-5.0); Sodium 139 mmol/L (137-145); Total Protein 7.0 g/dL (6.3-8.2)
[2024-12-03] MEDS: SODIUM CHLORIDE 0.9% IV 500 ML 999 ML IV CONT (18:30)
[2024-12-03 18:35] LABS: CRP 15.0 mg/dL (<1.0)
[2024-12-03 18:38] LABS: NT Pro B Type Natriuretic Pept 2950 pg/mL (19.9-100); Troponin I 0.051 ng/mL (0.000-0.034)
[2024-12-03 18:55] LABS: Thyroid Stimulating Hormone 6.770 uIU/mL (0.465-4.680)
--- NOTE | 2024-12-03 19:49 | PC.NURSE ---
assumed care of pt from AGGIE Martinez. pt on stretcher, responsive to painful stimuli. family at bedside. informed we are giving antibiotics and waiting for ua. no questions at this time
[2024-12-03] MEDS: VANCOMYCIN 1,500 MG/NS 500 ML 1,500 MG/500 ML BAG 250 MG IVPB (19:51)
[2024-12-03 20:29] LABS: Free T4 Free Thyroxine 1.24 ng/dL (0.78-2.19)
[2024-12-03] MEDS: SODIUM CHLORIDE 0.9% IV 1,000 ML 999 ML IV CONT (20:43)
[2024-12-03 20:59] LABS: Influenza A QL RT-PCR Negative (Negative); Influenza B QL RT-PCR Negative (Negative); RSV RNA, RT-PCR Negative (Negative); SARS-CoV-2 RNA PCR Negative (Negative)
--- NOTE | 2024-12-03 22:27 | PC.NURSE ---
upon respiratory assessment, pt has auditory expiratory crackles. edp made aware, ok to not give additional fluids d/t risk of fluid overlaod
[2024-12-03 22:31] LABS: Alveolar/Arterial O2 Gradient 98.1 mmHg; Fractional Inspired Oxygen 28 %; HCO3 ABG 21.0 mEq/l (22.0-26.0); Oxygen Content ABG 10.9 %vol (16.0-22.0); PCO2 ABG 43.2 mmHg (35.0-45.0); PO2 ABG 50.6 mmHg (80.0-100.0); PO2 FiO2 Ratio Arterial Blood 1.81 %
--- NOTE | 2024-12-03 22:32 | PC.NURSE ---
attempted to call mother regarding consent for central line. did not ring, went straight to voicemail. message left
[2024-12-03 22:33] LABS: Modified Allen's Test Pass; Oxygen Saturation ABG 82.3 % (95.0-100.0); Site Drawn RIGHT RADIAL
[2024-12-03 22:34] LABS: Liters per Minute 2.0 LPM
[2024-12-03] MEDS: ASPIRIN 300 MG SUPPOSITORY RECTAL (23:16)
--- NOTE | 2024-12-03 23:23 | PC.NURSE ---
Report received from AGGIE Latham. Assumed care of patient at this time.
[2024-12-03 23:35] LABS: Cannabinoid Screen Urine Negative (Negative)
[2024-12-04] VITALS (20 sets, daily range): BP systolic 90–120; BP diastolic 37–59; PULSE 51–85; RESP 17–24; TEMP 36.4–38.5; O2SAT 86–99; BMI 30.2
--- NOTE | 2024-12-04 00:14 | PC.NURSE ---
Called phlebotomy for second culture and 3hr troponin.
--- NOTE | 2024-12-04 00:42 | PM.IMHP ---
H&P: HPI History of Present Illness Date/Time: 12/04/24 00:42 Chief Complaint: Altered mental status Narrative: Patient is brought in from [facility] with reports of altered mental status. He was recently discharged from [facility] on 11/24/2024 with hypotension, acute renal failure. On this admission he is afebrile. He has hypotension within arriving blood pressure of 99/57. WBC 6.5, hemoglobin 9.8, BUN 36, serum creatinine 4.6 , troponin 0.051, proBNP 2950, troponin 0.051, TSH 6.7, urine drug screen positive for opiates, quad viral screen negative. Urinalysis pending. CT chest without contrast demonstrating multifocal pneumonia. He received vancomycin, 2 L isotonic saline bolus, aspirin 300 mg x 1, cefepime, Tylenol. Review of Systems Review of Systems: All systems reviewed & are unremarkable except as noted in HPI and below (Subjective/HPI) [facility] Past Medical History Medical History Chronic right arterial ischemic stroke, MCA (middle cerebral artery) Coronary artery disease Benign prostatic hyperplasia Tobacco abuse Chronic obstructive pulmonary disease Obstructive sleep apnea Intolerant of CPAP Hypertension Type 2 diabetes mellitus Cerebrovascular accident Surgical History Surgical History (Updated 11/20/24 @ 14:07 by Anam Daniel DO) S/P total colectomy Laparoscopic subtotal colectomy with ileorectal anastomosis 12/25/[address] Uche Laurent at [facility] History of coronary artery stent placement History of cardiac catheterization Family History Family History Other Family history non-contributory Social History Social History (Updated 12/03/24 @ 17:37 by Almaz Boyle MD) Social History: Surrogate medical decision maker: Clarita Hobbs, mother. Code status: POLST signed 11/26/21 indicates DNR (Do not resusictate) with comfort-focused treatment Smoking packs per day: 1 Smoking cigarettes per day: 20.0 Years smoked: 50 Smoking pack-years: 50.00 Smoking status: Current every day smoker Tobacco type: cigarettes Alcohol intake: former Substance use: never Do You Feel Safe in your Home?: Yes Lack of Transportation: No Lack of Food: Never True Current Housing: I Have Housing Concerned About Future Housing: No Difficulty Paying Gas/Electric Bills: No Difficulty Paying for Meds: No Currently Unemployed: No Education: High School Diploma/GED Difficulty w/ Childcare or Family Care: No Additional living arrangements comments: Resident at [facility]. 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 Spiritual care concerns: No Meds Home Medications and Allergies Home Medications ?Medication ?Instructions ?Recorded ?Confirmed ?Type acetaminophen 325 mg tablet 650 mg PO Q8H PRN Pain, Mild 11/07/23 11/13/24 History albuterol sulfate 90 mcg/actuation 2 puff inhalation Q4H PRN Wheezing 11/07/23 11/13/24 History aerosol inhaler aspirin 81 mg tablet,delayed 81 mg PO DAILY 11/07/23 11/13/24 History release cabergoline 0.5 mg tablet 0.5 mg PO 2XW 11/07/23 11/13/24 History carboxymethylcellulose sodium 0.5 1 drp EACH EYE QID PRN Dry Eyes 11/07/23 11/13/24 History % eye drops in a dropperette (Refresh Plus) carvedilol 3.125 mg tablet 3.125 mg PO BID 11/07/23 11/13/24 History dextromethorphan-guaifenesin 10 10 ml PO Q4-6H PRN Cough 11/07/23 11/13/24 History mg-100 mg/5 mL oral syrup escitalopram oxalate 20 mg tablet 15 mg PO QAM 11/07/23 11/13/24 History gabapentin 100 mg capsule 100 mg PO TID 11/07/23 11/13/24 History glipizide 5 mg tablet 5 mg PO QAM 11/07/23 11/13/24 History loperamide 2 mg capsule 2 mg PO Q6H PRN Diarrhea 11/07/23 11/13/24 History (Anti-Diarrheal (loperamide)) melatonin 5 mg tablet 5 mg PO HS 11/07/23 11/13/24 History ondansetron 4 mg disintegrating 4 mg PO Q4H PRN Nausea And Vomiting 11/07/23 11/13/24 History tablet rosuvastatin 40 mg tablet 40 mg PO QHS 11/07/23 11/13/24 History sennosides 8.6 mg tablet (Senokot) 8.6 mg PO PRN PRN Constipation 11/07/23 11/13/24 History tamsulosin 0.4 mg capsule 0.4 mg PO QAM 11/07/23 11/13/24 History tiotropium bromide 2.5 2 puff inhalation QAM 11/07/23 11/13/24 History mcg/actuation mist for inhalation (Spiriva Respimat) benzonatate 100 mg capsule 100 mg PO TID PRN cough 05/16/24 11/13/24 History brinzolamide 1 %-brimonidine 0.2 % 1 drp EACH EYE TID 05/18/24 11/13/24 History eye drops,suspension (Simbrinza) budesonide 160 mcg-glycopyr 9 2 inh inhalation BID 05/18/24 11/13/24 History mcg-formot 4.8 mcg/actuation HFA inhaler (Breztri Aerosphere) oxycodone 5 mg tablet 5 mg PO QHS pain 05/18/24 11/13/24 History insulin aspart U-100 100 unit/mL 1 sliding scale dose subcut 05/20/24 11/13/24 Rx (3 mL) subcutaneous pen (Novolog USEASDIRECTD #15 mL FlexPen U-100 Insulin aspart) insulin glargine 100 unit/mL 15 unit (0.15 mL) subcut HS 15 05/20/24 11/13/24 Rx subcutaneous solution (Lantus days #2.25 mL U-100 Insulin) cholestyramine 4 gram oral powder 4 g PO TID 11/13/24 11/13/24 History lidocaine 5 % topical patch 1 patch topical DAILY back pain 11/13/24 11/13/24 History psyllium husk 0.4 gram capsule 0.4 g PO DAILY PRN constipation 11/13/24 11/13/24 History (Fiber (psyllium husk)) Allergies Allergy/AdvReac Type Severity Reaction Status Date / Time hydralazine AdvReac Vomiting Verified 11/13/24 14:12 lisinopril AdvReac Rash Verified 11/13/24 14:12 metformin AdvReac Diarrhea Verified 11/13/24 14:12 pioglitazone AdvReac Nausea Verified 11/13/24 14:12 simvastatin AdvReac Rash Verified 11/13/24 14:12 Vital Signs Vital Signs - 24 hr 12/03/24 16:34 12/03/24 16:43 12/03/24 17:37 Temperature 101.4 F H 103.2 F H Pulse Rate 72 Respiratory Rate 20 24 H Blood Pressure 99/57 L Pulse Oximetry 94 94 94 Oxygen Delivery Room Air Room Air 12/03/24 18:22 12/03/24 18:58 12/03/24 19:03 Temperature 103.4 F H 103.4 F H 103.4 F H Pulse Rate 68 64 64 Respiratory Rate 24 H 20 22 H Blood Pressure 100/48 L 110/47 L Pulse Oximetry 95 98 100 Oxygen Delivery 12/03/24 19:15 12/03/24 19:16 12/03/24 19:30 Temperature 103.2 F H 103.2 F H 103.1 F H Pulse Rate 65 64 61 Respiratory Rate 23 H 19 21 H Blood Pressure 102/55 L Pulse Oximetry 100 100 Oxygen Delivery 12/03/24 19:31 12/03/24 19:47 12/03/24 19:52 Temperature 103.1 F H 103.0 F H 103.0 F H Pulse Rate 61 61 60 Respiratory Rate 22 H 23 H 20 Blood Pressure 96/49 L 96/49 L Pulse Oximetry 100 100 99 Oxygen Delivery 12/03/24 20:00 12/03/24 20:01 12/03/24 20:15 Temperature 102.9 F H 102.9 F H 102.8 F H Pulse Rate 60 60 61 Respiratory Rate 22 H 22 H 22 H Blood Pressure 93/48 L Pulse Oximetry 99 100 100 Oxygen Delivery 12/03/24 20:30 12/03/24 20:31 12/03/24 21:07 Temperature 102.7 F H 102.7 F H 102.3 F H Pulse Rate 63 65 64 Respiratory Rate 21 H 22 H 21 H Blood Pressure 110/42 L Pulse Oximetry 100 100 99 Oxygen Delivery 12/03/24 21:15 12/03/24 21:34 12/03/24 21:45 Temperature 102.0 F H 101.9 F H Pulse Rate 65 72 68 Respiratory Rate 21 H 16 18 Blood Pressure Pulse Oximetry 100 Oxygen Delivery 12/03/24 22:00 12/03/24 22:41 12/03/24 23:01 Temperature 101.8 F H 101.4 F H 101.3 F H Pulse Rate 80 84 84 Respiratory Rate 21 H 21 H 20 Blood Pressure 99/55 L Pulse Oximetry Oxygen Delivery 12/03/24 23:24 12/03/24 23:32 12/03/24 23:45 Temperature 101.3 F H 101.3 F H 101.3 F H Pulse Rate 87 94 86 Respiratory Rate 20 21 H 22 H Blood Pressure Pulse Oximetry Oxygen Delivery 12/04/24 00:00 12/04/24 00:01 12/04/24 00:15 Temperature 101.3 F H 101.3 F H 101.3 F H Pulse Rate 85 85 83 Respiratory Rate 22 H 21 H 20 Blood Pressure 98/43 L Pulse Oximetry 96 Oxygen Delivery 12/04/24 00:32 Temperature Pulse Rate 84 Respiratory Rate 17 Blood Pressure 92/49 L Pulse Oximetry 95 Oxygen Delivery Exam Const: Other: Nonverbal. Grimacing to painful stimuli HENMT: Mouth: Yes dry mucous membranes Resp: Other: Coarse upper airway sounds with upper airway congestion Cardio: Rate: regular rate Rhythm: regular rhythm GI: GI Palp: Yes Soft to palpation and No Tenderness to palpation present (GI) Extrem: Other: Trace pitting edema bilateral lower extremity below-knee H&P: Results Labs Labs: Short CBC 12/03/24 Range/Units 17:52 WBC 6.5 (4.5-10.0) K/mm3 Hgb 9.8 L (14.0-18.0) g/dL Hct 32.3 L (42.0-52.0) % Plt Count 235 (150-375) k/mm3 BMP 12/03/24 17:52 Sodium 139 Potassium 4.0 Chloride 102 Carbon Dioxide 27 BUN 36 H D Creatinine 4.68 H Glucose 99 Calcium 8.8 Cardiac Enzymes 12/03/24 12/03/24 Range/Units 17:52 17:52 Troponin I 0.051 H* Cancelled (0.000-0.034) ng/mL Liver Function 12/03/24 Range/Units 17:52 Total Bilirubin 0.6 (0.2-1.3) mg/dL AST 49 (17-59) U/L ALT 19 (6-50) U/L Alkaline Phosphatase 141 H (38-126) U/L Albumin 3.3 L (3.5-5.1) g/dL Assessment and Plan Assessment and plan (1) Multifocal pneumonia: Code(s): J18.8 - Other pneumonia, unspecified organism Status: Acute (2) Sepsis: Code(s): A41.9 - Sepsis, unspecified organism Status: Acute (3) Sepsis associated hypotension: Code(s): A41.9 - Sepsis, unspecified organism; I95.9 - Hypotension, unspecified Status: Acute Plan Patient is brought in from [facility] with reports of altered mental status. He was recently discharged from [facility] on 11/24/2024 with hypotension, acute renal failure. On this admission he is afebrile. He has hypotension within arriving blood pressure of 99/57. WBC 6.5, hemoglobin 9.8, BUN 36, serum creatinine 4.6 , troponin 0.051, proBNP 2950, troponin 0.051, TSH 6.7, urine drug screen positive for opiates, quad viral screen negative. Urinalysis pending. CT chest without contrast demonstrating multifocal pneumonia. He received vancomycin, 2 L isotonic saline bolus, aspirin 300 mg x 1, cefepime, Tylenol. ----- Patient has a POLST form he is comfort care/DNR. Multiple attempts to reach out to the patient's mother with voicemail left but no response. Continue comfort care in line with the previous wishes. DNR. LR 100 cc/hour. Hospitalist [facility] Advance Care Plan I have confirmed that the patient's Advanced Care Plan is present, code status is documented, or surrogate decision maker is listed in patient medical record.: Yes Medication Reconciliation I have utilized all available resources to obtain, update and review the patients current medications (includes all prescriptions, OTC, herbals, cannabis, and nutritional supplements).: Yes
--- NOTE | 2024-12-04 01:27 | PC.NURSE ---
Addendum entered by Maddie Davies RN 12/04/24 02:19: This RN notified emergency contact/POA Clarita of patient's admission. POA would like to make patient a full code, discharge planner Brandy verified OTP. Dr. Dumont called with no answer. Original Note: This RN notified emergency contact/POHemant Mendoza of patient's admission. POA would like to make patient a full code, discharge planner Brandy verified OTP. Dr. Dumont called with no answer.
--- NOTE | 2024-12-04 01:31 | ADMGEN ---
This patient, Brent Higginbotham, was admitted to IMU Room 213-01 at 0103. Patient/family oriented to hospital policies and general routines including ID bracelet, bed and alarms, visiting hours, pain management, procedures, bathroom and other care routines, personal items, smoking policy, room service/diet, and visiting hours. Information on how to activate the Rapid Response Team has been discussed. Patient/Family are encouraged to report perceived risks to care and to ask questions if they do not understand what they are told or what they should do.
[2024-12-04 04:46] LABS: Hematocrit 28.1 % (42.0-52.0); Hemoglobin 8.2 g/dL (14.0-18.0); Immature Granulocyte Percent A 0.7 % (0-0.5); Lymphocytes Absolute Auto 0.82 K/mm3 (0.9-3.2); Mean Corpuscular HGB Conc 29.2 g/dl (32-36); Mean Corpuscular Hemoglobin 27.8 pg (26-34); Mean Corpuscular Volume 95.3 fl (80-100); Nucleated Red Blood Cells Absolute Auto 0.000 K/mm3 (0.0-0.012); Nucleated Red Blood Cells Perc 0.0 % (0.0-0.2); Platelet Count Result 206 k/mm3 (150-375); Red Blood Count 2.95 M/mm3 (4.6-6.20); White Blood Count 6.7 K/mm3 (4.5-10.0)
[2024-12-04 04:55] LABS: Alanine Aminotransferase 16 U/L (6-50); Albumin Level 2.8 g/dL (3.5-5.1); Alkaline Phosphatase 105 U/L (38-126); Anion Gap 6 mmol/L (4-12); Aspartate Amino Transferase 45 U/L (17-59); Bilirubin,Total 0.5 mg/dL (0.2-1.3); Blood Urea Nitrogen 36 mg/dL (9-20); Calcium 8.2 mg/dL (8.4-10.2); Carbon Dioxide 25 mmol/L (22-30); Chloride 107 mmol/L (98-107); Creatine Kinase 835 U/L (55-170); Estimated CRCL calculation 16 ml/min; Estimated Glomerular Filt Rate 12; Glucose 66 mg/dL (65-110); Magnesium 1.2 mg/dL (1.6-2.3); Potassium 4.1 mmol/L (3.4-5.0); Sodium 138 mmol/L (137-145); Total Protein 5.9 g/dL (6.3-8.2)
[2024-12-04 05:10] LABS: Troponin I 0.097 ng/mL (0.000-0.034)
[2024-12-04 05:26] LABS: Hepatitis B Surface Antigen Negative (Negative)
[2024-12-04] MEDS: DEXTROSE 50% 25 GM/50 ML SYRINGE IV PUSH (05:30)
[2024-12-04] MEDS: DEXTROSE 5%/0.9% SOD CHL 1,000 ML 100 ML IV CONT (05:31)
[2024-12-04 05:44] LABS: Hepatitis B Surface Anti Res Negative
[2024-12-04] MEDS: CEFEPIME 1 GM in SODIUM CHLORIDE 0.9% IV 50 ML 100 ML IVPB ×2 (09:34→21:20)
--- NOTE | 2024-12-04 09:45 | P.CONNP_ITS ---
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 * agree with trial of IVFs * follow trend of repeat labs and UOP (2) Hypotension: Qualifiers: Hypotension type: hypotension due to hypovolemia Qualified Code(s): E 86.1 - Hypovolemia Code(s): I95.9 - Hypotension, unspecified Status: Acute Assessment and Plan: * as noted in ER * early sepsis(?) on top of possible volume depletion(?) * improvement noted following IVF bolus * holding BP medications * continue trial of IVFs * follow trend of hemodynamics (3) Acute hypoxic respiratory failure: Code(s): J96.01 - Acute respiratory failure with hypoxia Status: Acute Assessment and Plan: * presumably due to pneumonia * requiring supplemental oxygen * follow respiratory status (4) Altered mental status: Code(s): R41.82 - Altered mental status, unspecified Status: Acute Assessment and Plan: * presumably due to infection(?) +/- BRYCE * head CT negative in ER * follow mentation (5) Pneumonia: Code(s): J18.9 - Pneumonia, unspecified organism Status: Acute Assessment and Plan: * as noted by imaging on admission * follow cultures * follow respiratory status * on antibiotics (6) Urinary tract infection: Code(s): N39.0 - Urinary tract infection, site not specified Status: Acute Assessment and Plan: * suggested by admission UA * however, has chronic linton catheter * this was exchanged in the ER * follow culture data * on antibiotics (7) Anemia: Code(s): D64.9 - Anemia, unspecified Status: Acute Assessment and Plan: * due to BRYCE/ARF, CKD(?), and acute illness * follow trend of H/H * may need to consider KARIS (8) Type 2 diabetes mellitus: Qualifiers: Diabetes mellitus complication detail: without coma Diabetes mellitus complication status: with hypoglycemia Diabetes mellitus meterman insulin use: with meterman use Qualified Code(s): E11.649 - Type 2 diabetes mellitus with hypoglycemia without coma; Z79.4 - meterman (current) use of insulin Code(s): E11.9 - Type 2 diabetes mellitus without complications Status: Chronic Assessment and Plan: * issues with hypoglyemia prior to admission noted * follow accu-cheks * glycemic control per hospitalist Long and extensive discussion (> 20 minutes) with patient's mother by phone regarding his BRYCE/ARF and my concern that he may require renal replacement therapy/dialysis again as he did on his last hospitalization. I voiced my concerns that he may not tolerate this intervention this time given his relative hypotension. She appeared to voice understanding but is willing to proceed with dialysis again if needed/necessary. I will continue to follow the patient with you while he remains hospitalized and make further recommendations as deemed necessary. Thank you for allowing me to participate in the care of this patient. L History of Present Illness Reason for Consult Consult date: 12/04/24 Reason for consult: acute renal failure (on chronic kidney disease[?]) Chief Complaint Chief complaint: pneumonia; septic shock; ARF History of Present Illness Narrative: All of the information I have obtained is from review of the electronic medical record as well as discussion with the physicians/nurses involved in the patient's care as the patient is unable to provide any history due to his altered mental status. The patient is a 69-year-old male with a past medical history as outlined below who presented to [facility] Emergency Room from his nursing facility due to altered mental status. Per ER report, along with his altered mental status, he was also short of breath. He apparently was at his baseline mentation (A&O x 3) at breakfast yesterday morning. He was apparently found by nursing staff later that afternoon with hypoxic and altered. EMS was called for further assistance and he was note to be 68% on 3L by their arrival. It was further noted that his linton catheter was full of purulent fluid/drainage as well. He was subsequently transferred to the ER for for further assessment. Evaluation emergency room was significant for a fever with a T-max of 103.4? in association with relative hypotension with a systolic BP in the 90-100s range in association with tachycardia. Rectal Tylenol was ordered for his fever given his altered mental status and given the brown/purulent drainage in his Linton bag, his catheter was exchanged. Due to his code status of DNR/DNI, a central line was not placed but he was initiated on aggressive IV fluids due to concerns for early sepsis. Routine blood work was significant for a normal lactic acid, evidence of acute kidney injury with a creatinine of 4.68mg/dl (on last hospital discharge it had been improving down to 3.66 mg/dL), and elevated troponins with a BNP of 3000. His urine drug screen was positive for opioids but his urinalysis is still pending. Viral testing for influenza, RSV, and COVID were negative and subsequent CT imaging was significant for left lower lobe pneumonia as well as mild to moderate bilateral renal atrophy with bilateral renal stents in expected position. After appropriate cultures were obtained, he was initiated on broad-spectrum antibiotics and subsequently admitted to the hospital for further evaluation therapy. Since his admission, his blood pressure seems to have improved with ongoing therapy and his mother was able to be contacted with regard to his current clinical status and he was changed to a full code status. His fever has come down but his mentation has not improved since admission. Renal consultation was requested due to his acute kidney injury/acute renal failure on top of his possible chronic kidney disease. The patient is somewhat familiar to me as I took care of him during his hospitalization here earlier in the month. At that time, he had acute kidney injury/acute renal failure most likely secondary to ATN a did require 2 sessions of conventional hemodialysis prior to his kidney function improving. As mentioned above, his creatinine was as high as 7.7 mg/dL prior to the initiation of renal replacement therapy/dialysis but had been slowly improving even after dialysis was discontinued with a discharge creatinine of 3.66 mg/dL. However, given his recent CT scan findings with regard to his mild to moderate bilateral renal atrophy is very possible he has some underlying renal insufficiency that was not known previously. Unfortunately, despite aggressive IV fluid resuscitation, he is still not making much urine although as already mentioned, his hemodynamics are a bit better. Currently, the time my evaluation, he does not appear to be any acute distress but is obtunded. Review of Systems 2 Review of Systems: As per HPI. [facility] Past Medical History Medical History Chronic right arterial ischemic stroke, MCA (middle cerebral artery) Coronary artery disease Benign prostatic hyperplasia Tobacco abuse Chronic obstructive pulmonary disease Obstructive sleep apnea Intolerant of CPAP Hypertension Type 2 diabetes mellitus Cerebrovascular accident Surgical History Surgical History (Updated 11/20/24 @ 14:07 by Anam Daniel, ) S/P total colectomy Laparoscopic subtotal colectomy with ileorectal anastomosis 12/25/[address] Uche Laurent at [facility] History of coronary artery stent placement History of cardiac catheterization Family History Family History Other Family history non-contributory Social History Social History (Updated 12/03/24 @ 17:37 by Almaz Boyle MD) Social History: Surrogate medical decision maker: Clarita Hobbs, mother. Code status: POLST signed 11/26/21 indicates DNR (Do not resusictate) with comfort-focused treatment Smoking packs per day: 1 Smoking cigarettes per day: 20.0 Years smoked: 50 Smoking pack-years: 50.00 Smoking status: Former smoker Tobacco type: cigarettes Alcohol intake: former Substance use: never Do You Feel Safe in your Home?: Yes Lack of Transportation: No Lack of Food: Never True Current Housing: I Have Housing Concerned About Future Housing: No Difficulty Paying Gas/Electric Bills: No Difficulty Paying for Meds: No Currently Unemployed: No Education: High School Diploma/GED Difficulty w/ Childcare or Family Care: No Additional living arrangements comments: Resident at [facility]. 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 Spiritual care concerns: No Meds Home Medications and Allergies Home Medications ?Medication ?Instructions ?Recorded ?Confirmed ?Type acetaminophen 325 mg tablet 650 mg PO Q8H PRN Pain, Mild 11/07/23 12/04/24 History albuterol sulfate 90 mcg/actuation 2 puff inhalation Q4H PRN Wheezing 11/07/23 12/04/24 History aerosol inhaler aspirin 81 mg tablet,delayed 81 mg PO DAILY 11/07/23 12/04/24 History release cabergoline 0.5 mg tablet 1 mg PO 2XW 11/07/23 12/04/24 History carboxymethylcellulose sodium 0.5 1 drp EACH EYE QID PRN Dry Eyes 11/07/23 12/04/24 History % eye drops in a dropperette (Refresh Plus) carvedilol 3.125 mg tablet 3.125 mg PO BID 11/07/23 12/04/24 History dextromethorphan-guaifenesin 10 10 ml PO Q4-6H PRN Cough 11/07/23 12/04/24 History mg-100 mg/5 mL oral syrup escitalopram oxalate 20 mg tablet 10 mg PO QAM 11/07/23 12/04/24 History gabapentin 100 mg capsule 100 mg PO TID 11/07/23 12/04/24 History glipizide 5 mg tablet 5 mg PO QAM 11/07/23 12/04/24 History loperamide 2 mg capsule 2 mg PO Q6H PRN Diarrhea 11/07/23 12/04/24 History (Anti-Diarrheal (loperamide)) melatonin 5 mg tablet 5 mg PO HS 11/07/23 12/04/24 History ondansetron 4 mg disintegrating 4 mg PO Q4H PRN Nausea And Vomiting 11/07/23 12/04/24 History tablet rosuvastatin 40 mg tablet 40 mg PO QHS 11/07/23 12/04/24 History sennosides 8.6 mg tablet (Senokot) 8.6 mg PO PRN PRN Constipation 11/07/23 12/04/24 History tiotropium bromide 2.5 2 puff inhalation QAM 11/07/23 12/04/24 History mcg/actuation mist for inhalation (Spiriva Respimat) benzonatate 100 mg capsule 100 mg PO TID PRN cough 05/16/24 12/04/24 History brinzolamide 1 %-brimonidine 0.2 % 1 drp EACH EYE TID 05/18/24 12/04/24 History eye drops,suspension (Simbrinza) budesonide 160 mcg-glycopyr 9 2 inh inhalation BID 05/18/24 12/04/24 History mcg-formot 4.8 mcg/actuation HFA inhaler (Breztri Aerosphere) oxycodone 5 mg tablet 5 mg PO Q12H pain 05/18/24 12/04/24 History insulin aspart U-100 100 unit/mL 1 sliding scale dose subcut 05/20/24 12/04/24 Rx (3 mL) subcutaneous pen (Novolog USEASDIRECTD #15 mL FlexPen U-100 Insulin aspart) insulin glargine 100 unit/mL 15 unit (0.15 mL) subcut HS 15 05/20/24 12/04/24 Rx subcutaneous solution (Lantus days #2.25 mL U-100 Insulin) cholestyramine 4 gram oral powder 4 g PO TID 11/13/24 12/04/24 History lidocaine 5 % topical patch 1 patch topical DAILY back pain 11/13/24 12/04/24 History psyllium husk 0.4 gram capsule 0.4 g PO DAILY PRN constipation 11/13/24 12/04/24 History (Fiber (psyllium husk)) duloxetine 20 mg capsule,delayed 20 mg PO DAILY 12/04/24 12/04/24 History release sprinkle (Drizalma Sprinkle) ipratropium 0.5 mg-albuterol 3 mg 3 ml inhalation TID 12/04/24 12/04/24 History (2.5 mg base)/3 mL nebulization soln memantine 5 mg tablet (Namenda) 5 mg PO DAILY 12/04/24 12/04/24 History mirtazapine 7.5 mg tablet 7.5 mg PO HS 12/04/24 12/04/24 History tamsulosin 0.4 mg capsule (Flomax) 0.4 mg PO DAILY 12/04/24 12/04/24 History Allergies Allergy/AdvReac Type Severity Reaction Status Date / Time hydralazine AdvReac Vomiting Verified 12/04/24 01:33 lisinopril AdvReac Rash Verified 12/04/24 01:33 metformin AdvReac Diarrhea Verified 12/04/24 01:33 pioglitazone AdvReac Nausea Verified 12/04/24 01:33 simvastatin AdvReac Rash Verified 12/04/24 01:33 Vital Signs Vital Signs Temp Pulse Resp BP Pulse Ox O2 Del Method O2 Flow Rate 12/04/24 07:21 98.5 F 54 L 22 H 90/37 L 99 12/04/24 06:00 61 12/04/24 04:39 85 20 94 Nasal Cannula 5 12/04/24 04:00 99.9 F H 74 20 98/59 L 86 L 12/04/24 04:00 94 Nasal Cannula 6 12/04/24 04:00 68 12/04/24 02:00 83 12/04/24 01:03 99.6 F 82 20 102/44 L 93 12/04/24 00:32 84 17 92/49 L 95 12/04/24 00:15 101.3 F H 83 20 96 12/04/24 00:01 101.3 F H 85 21 H 98/43 L 12/04/24 00:00 101.3 F H 85 22 H 12/03/24 23:45 101.3 F H 86 22 H 12/03/24 23:32 101.3 F H 94 21 H 12/03/24 23:24 101.3 F H 87 20 12/03/24 23:01 101.3 F H 84 20 99/55 L 12/03/24 22:41 101.4 F H 84 21 H 12/03/24 22:00 101.8 F H 80 21 H 12/03/24 21:45 101.9 F H 68 18 12/03/24 21:34 102.0 F H 72 16 12/03/24 21:15 65 21 H 100 12/03/24 21:07 102.3 F H 64 21 H 99 12/03/24 20:31 102.7 F H 65 22 H 110/42 L 100 12/03/24 20:30 102.7 F H 63 21 H 100 12/03/24 20:15 102.8 F H 61 22 H 100 12/03/24 20:01 102.9 F H 60 22 H 93/48 L 100 12/03/24 20:00 102.9 F H 60 22 H 99 12/03/24 19:52 103.0 F H 60 20 96/49 L 99 12/03/24 19:47 103.0 F H 61 23 H 100 12/03/24 19:31 103.1 F H 61 22 H 96/49 L 100 12/03/24 19:30 103.1 F H 61 21 H 100 12/03/24 19:16 103.2 F H 64 19 102/55 L 12/03/24 19:15 103.2 F H 65 23 H 100 12/03/24 19:03 103.4 F H 64 22 H 100 12/03/24 18:58 103.4 F H 64 20 110/47 L 98 12/03/24 18:22 103.4 F H 68 24 H 100/48 L 95 12/03/24 17:37 103.2 F H 72 24 H 99/57 L 94 12/03/24 16:43 94 Room Air 12/03/24 16:34 101.4 F H 20 94 Room Air Exam 2 Narrative: GENERAL APPEARANCE: chronically ill-appearing male in no acute distress HEENT: normocephalic, atraumatic, normal conjunctiva and sclera, nares patient NECK: no lymphadenopathy, thyromegaly, or JVD MOUTH: normal lips, teeth, and gums CARDIOVASCULAR: RRR, normal S1 and S2, no rub RESPIRATORY: coarse with upper airway noise ABDOMEN: soft, nontender, nondistended, positive bowel sounds present EXTREMITIES: no evidence of cyanosis, clubbing, trace edema NEUROLOGICAL: somnolent/lethargic (nonverbal); no focal deficits noted Results Lab Results 12/05/24 04:11 12/05/24 04:11 Lab results: Most recent lab results ABG pH 7.305 (7.350-7.450) L 12/03/24 22:25 ABG pCO2 43.2 mmHg (35.0-45.0) 12/03/24 22:25 ABG pO2 50.6 mmHg (80.0-100.0) L 12/03/24 22:25 ABG HCO3 21.0 mEq/l (22.0-26.0) L 12/03/24 22:25 ABG O2 Saturation 82.3 % (95.0-100.0) L* 12/03/24 22:25 Calcium 8.2 mg/dL (8.4-10.2) L 12/04/24 04:34 Magnesium 1.2 mg/dL (1.6-2.3) L 12/04/24 04:34 Urine Creatinine 269.4 mg/dL 12/03/24 22:32
[2024-12-04 10:15] LABS: Troponin I 0.151 ng/mL (0.000-0.034)
[2024-12-04 12:50] LABS: Add Urine Microscopic? YES; Appearance Urine Turbid (Clear); Glucose Urine UA Trace mg/dL (Negative); Leukocyte Esterase Ur 3+ LEU/UL (Negative); Need Manual Microscopic Reviewed; Nitrate Urine Negative (Negative); Non Pathogenic Casts >20; Specific Grav Ur 1.021 (1.001-1.035)
[2024-12-04 13:29] LABS: Urine Eos QC 2nd Tech Confirmed
--- NOTE | 2024-12-04 14:25 | PM.IMPN ---
Progress Note: A&P Assessment and Plan (1) Multifocal pneumonia: Code(s): J18.8 - Other pneumonia, unspecified organism Status: Acute (2) Sepsis: Code(s): A41.9 - Sepsis, unspecified organism Status: Acute (3) Sepsis associated hypotension: Code(s): A41.9 - Sepsis, unspecified organism; I95.9 - Hypotension, unspecified Status: Acute Plan LLL Pnuemonia HAP, recent hospitalization CT chest reviewed Blood culture Cefepime and Doxycycline MRSA negative ACute hypoxemic resp failur e on 4 liters oxygen continue above care and titrate oxygen ESRD on dialysis Nephrology consulted DM2 SSi with accucheks DVT prophylaxis on Sq Heparin Subjective Date/time seen: 12/04/24 14:25 Interval history: Comfortable at bedside Review of Systems Review of Systems: All systems reviewed & are unremarkable except as noted in HPI and below (Subjective/HPI) Exam Const: Other: Nonverbal. Grimacing to painful stimuli HENMT: Mouth: Yes dry mucous membranes Resp: Other: Coarse upper airway sounds with upper airway congestion Cardio: Rate: regular rate Rhythm: regular rhythm Extrem: Other: Trace pitting edema bilateral lower extremity below-knee Objective Data Vital Signs Vital Signs: Vital Signs - 24 hr 12/03/24 16:34 12/03/24 16:43 12/03/24 17:37 Temperature 101.4 F H 103.2 F H Pulse Rate 72 Respiratory Rate 20 24 H Blood Pressure 99/57 L Pulse Oximetry 94 94 94 Oxygen Delivery Room Air Room Air Oxygen Flow Rate Fraction of Inspired Oxygen 12/03/24 18:22 12/03/24 18:58 12/03/24 19:03 Temperature 103.4 F H 103.4 F H 103.4 F H Pulse Rate 68 64 64 Respiratory Rate 24 H 20 22 H Blood Pressure 100/48 L 110/47 L Pulse Oximetry 95 98 100 Oxygen Delivery Oxygen Flow Rate Fraction of Inspired Oxygen 12/03/24 19:15 12/03/24 19:16 12/03/24 19:30 Temperature 103.2 F H 103.2 F H 103.1 F H Pulse Rate 65 64 61 Respiratory Rate 23 H 19 21 H Blood Pressure 102/55 L Pulse Oximetry 100 100 Oxygen Delivery Oxygen Flow Rate Fraction of Inspired Oxygen 12/03/24 19:31 12/03/24 19:47 12/03/24 19:52 Temperature 103.1 F H 103.0 F H 103.0 F H Pulse Rate 61 61 60 Respiratory Rate 22 H 23 H 20 Blood Pressure 96/49 L 96/49 L Pulse Oximetry 100 100 99 Oxygen Delivery Oxygen Flow Rate Fraction of Inspired Oxygen 12/03/24 20:00 12/03/24 20:01 12/03/24 20:15 Temperature 102.9 F H 102.9 F H 102.8 F H Pulse Rate 60 60 61 Respiratory Rate 22 H 22 H 22 H Blood Pressure 93/48 L Pulse Oximetry 99 100 100 Oxygen Delivery Oxygen Flow Rate Fraction of Inspired Oxygen 12/03/24 20:30 12/03/24 20:31 12/03/24 21:07 Temperature 102.7 F H 102.7 F H 102.3 F H Pulse Rate 63 65 64 Respiratory Rate 21 H 22 H 21 H Blood Pressure 110/42 L Pulse Oximetry 100 100 99 Oxygen Delivery Oxygen Flow Rate Fraction of Inspired Oxygen 12/03/24 21:15 12/03/24 21:34 12/03/24 21:45 Temperature 102.0 F H 101.9 F H Pulse Rate 65 72 68 Respiratory Rate 21 H 16 18 Blood Pressure Pulse Oximetry 100 Oxygen Delivery Oxygen Flow Rate Fraction of Inspired Oxygen 12/03/24 22:00 12/03/24 22:41 12/03/24 23:01 Temperature 101.8 F H 101.4 F H 101.3 F H Pulse Rate 80 84 84 Respiratory Rate 21 H 21 H 20 Blood Pressure 99/55 L Pulse Oximetry Oxygen Delivery Oxygen Flow Rate Fraction of Inspired Oxygen 12/03/24 23:24 12/03/24 23:32 12/03/24 23:45 Temperature 101.3 F H 101.3 F H 101.3 F H Pulse Rate 87 94 86 Respiratory Rate 20 21 H 22 H Blood Pressure Pulse Oximetry Oxygen Delivery Oxygen Flow Rate Fraction of Inspired Oxygen 12/04/24 00:00 12/04/24 00:01 12/04/24 00:15 Temperature 101.3 F H 101.3 F H 101.3 F H Pulse Rate 85 85 83 Respiratory Rate 22 H 21 H 20 Blood Pressure 98/43 L Pulse Oximetry 96 Oxygen Delivery Oxygen Flow Rate Fraction of Inspired Oxygen 12/04/24 00:32 12/04/24 01:03 12/04/24 02:00 Temperature 99.6 F Pulse Rate 84 82 83 Respiratory Rate 17 20 Blood Pressure 92/49 L 102/44 L Pulse Oximetry 95 93 Oxygen Delivery Oxygen Flow Rate Fraction of Inspired Oxygen 12/04/24 04:00 12/04/24 04:00 12/04/24 04:00 Temperature 99.9 F H Pulse Rate 68 74 Respiratory Rate 20 Blood Pressure 98/59 L Pulse Oximetry 94 86 L Oxygen Delivery Nasal Cannula Oxygen Flow Rate 6 Fraction of Inspired Oxygen 12/04/24 04:39 12/04/24 06:00 12/04/24 07:21 Temperature 98.5 F Pulse Rate 85 61 54 L Respiratory Rate 20 22 H Blood Pressure 90/37 L Pulse Oximetry 94 99 Oxygen Delivery Nasal Cannula Oxygen Flow Rate 5 Fraction of Inspired Oxygen 40 12/04/24 08:00 12/04/24 10:00 12/04/24 10:08 Temperature Pulse Rate 72 61 Respiratory Rate Blood Pressure 96/38 L Pulse Oximetry Oxygen Delivery Oxygen Flow Rate Fraction of Inspired Oxygen 12/04/24 11:15 12/04/24 11:15 12/04/24 12:00 Temperature 98.5 F Pulse Rate 69 63 Respiratory Rate 24 H Blood Pressure 120/56 L Pulse Oximetry 94 95 Oxygen Delivery Nasal Cannula Oxygen Flow Rate 4 Fraction of Inspired Oxygen Intake/Output Intake/Output: Intake & Output 12/01/24 12/02/24 12/03/24 12/04/24 23:59 23:59 23:59 23:59 Intake Total 2049 Balance 2049 Meds/Results Medications: Active Medications Generic Name Dose Route Start Last Admin Trade Name Freq PRN Reason Stop Dose Admin Acetaminophen 650 mg 12/04/24 01:55 Acetaminophen 650 Mg Suppository RECTAL Q6H PRN Mild Pain (1-3) or Fever Albuterol 2 puff 12/04/24 14:20 Albuterol Sulfate (*Sp) Aerosol 1 Puff INHALATION Q4H PRN Wheezing Aspirin 81 mg 12/05/24 09:00 Aspirin 81 Mg Enteric Tablet PO DAILY BERNARDO Dextrose 12.5 gm 12/04/24 00:50 Dextrose 50% 25 Gm/50 Ml Syringe IV PUSH PRN PRN Hypoglycemia Protocol Glucose 15 gm 12/04/24 00:50 Glucose Oral Gel 15 Gm Of Glucse In 37.5 Gm Tube PO PRN PRN Hypoglycemia Protocol Dextrose 1,000 mls @ 100 mls/hr 12/04/24 00:50 Dextrose 5% 1,000 Ml IVPB PRN PRN Hypoglycemia Protocol Cefepime HCl 1 gm/ Sodium 50 mls @ 100 mls/hr 12/04/24 09:00 12/04/24 09:34 Chloride IVPB 100 mls/hr Q12H BERNARDO Administration Dextrose/Sodium Chloride 1,000 mls @ 100 mls/hr 12/04/24 05:15 12/04/24 05:31 Dextrose 5% Sodium Chloride 0.9% IV CONT 100 mls/hr .Q10H BERNARDO Administration Mirtazapine 7.5 mg 12/04/24 21:00 Mirtazapine 7.5 Mg Tablet PO HS BERNARDO Non-Formulary Medication 2 inhalation 12/04/24 17:00 [id number] [Breztri Aerosphere] INHALATION 01/03/25 16:59 BID BERNARDO Non-Formulary Medication 1 mg 12/04/24 14:30 Cabergoline PO 01/03/25 14:29 2XW BERNARDO Non-Formulary Medication 2 puff 12/05/24 09:00 Tiotropium [place] [Spiriva Respimat] INHALATION 01/04/25 08:59 QAM BERNARDO Oxycodone HCl 5 mg 12/04/24 14:02 Oxycodone Hcl (*Crx) 5 Mg Tab Ir PO Q12HR PRN Pain Rated 7-10 Tamsulosin HCl 0.4 mg 12/05/24 09:00 Tamsulosin Hcl 0.4 Mg Capsule PO DAILY [facility] Vancomycin HCl 1 each 12/03/24 18:47 Vancomycin For Acute Kidney Injury IVPB PRN PRN Vancomycin Protocol Radiology Results: ITS Impressions Head CT 12/03/24 18:50 IMPRESSION: No acute intracranial process. Chest X-Ray 12/03/24 19:22 IMPRESSION: Subsegmental left medial basilar atelectasis/consolidation. Chest/Abdomen/Pelvis CT 12/04/24 07:39 IMPRESSION: 1. Left lower lobe pneumonia. 2. Mild to moderate bilateral renal atrophy with bilateral renal stents in expected position and similar pattern of increased density in the bilateral renal collecting systems which could represent either small residual excreted contrast as a recent contrast utilization or stones/stone fragments. Labs Labs: Laboratory Results - last 24 hr 12/03/24 12/03/24 12/03/24 17:52 17:52 17:52 WBC 6.5 RBC 3.44 L Hgb 9.8 L Hct 32.3 L MCV 93.9 MCH 28.5 MCHC 30.3 L RDW 14.7 H Plt Count 235 MPV 10.2 Immature Gran % (Auto) 0.5 Neut % (Auto) 77.4 H Lymph % (Auto) 10.8 L Cannon % (Auto) 7.1 Eos % (Auto) 3.7 Baso % (Auto) 0.5 Lymph # (Auto) 0.70 L Cannon # (Auto) 0.5 Eos # (Auto) 0.2 Baso # (Auto) 0.0 Abs Immat Gran (auto) 0.03 Absolute Neuts (auto) 5.0 Absolute Nucleated RBC 0.000 Nucleated RBC % 0.0 PT 13.9 INR 1.1 APTT 33.2 Puncture Site ABG pH ABG pCO2 ABG pO2 ABG PO2/FiO2 Ratio ABG HCO3 ABG O2 Saturation ABG O2 Content ABG Base Excess A-a Gradient Oxyhemoglobin Total Hemoglobin O2 Delivery Device O2 Liters/Min FiO2 Sodium 139 Potassium 4.0 Chloride 102 Carbon Dioxide 27 Anion Gap 10 BUN 36 H D Creatinine 4.68 H Estim Creat Clear Calc 17 Estimated GFR 13 L Glucose 99 POC Capillary Glucose Lactic Acid 1.3 Calcium 8.8 Magnesium Total Bilirubin 0.6 AST 49 ALT 19 Alkaline Phosphatase 141 H Ammonia < 9 L Total Creatine Kinase Troponin I 0.051 H* Cancelled C-Reactive Protein 15.0 H NT-Pro-B Natriuret Pep 2950 H Cancelled Total Protein 7.0 Albumin 3.3 L Lipase 123 TSH 6.770 H Free T4 Urine Color Urine Appearance Urine pH Ur Specific Clifford Urine Protein Urine Glucose (UA) Urine Ketones Ur Blood (Man) Urine Nitrate Urine Bilirubin Urine Urobilinogen Ur Leukocyte Esterase Add Ur Microanalysis Leukocyte Esterase Rfl Urine RBC Urine WBC Urine WBC Clumps Ur Squamous Epith Cells Urine Bacteria Urine Casts Urine Mucus Urine Eosinophils Ur Random Sodium Urine Creatinine Salicylates Urine Opiates Screen Urine Methadone Screen Acetaminophen Ur Barbiturates Screen Ur Phencyclidine Scrn Ur Amphetamine Screen U Benzodiazepines Scrn Urine Cocaine Screen U Cannabinoids Screen Ethyl Alcohol Hep Bs Antigen Hep Bs Antibody Influenza A (RT-PCR) Influenza B (RT-PCR) RSV (RT-PCR) SARS-CoV-2 RNA (RT-PCR) 12/03/24 12/03/24 12/03/24 17:52 19:15 22:25 WBC RBC Hgb Hct MCV MCH MCHC RDW Plt Count MPV Immature Gran % (Auto) Neut % (Auto) Lymph % (Auto) Cannon % (Auto) Eos % (Auto) Baso % (Auto) Lymph # (Auto) Cannon # (Auto) Eos # (Auto) Baso # (Auto) Abs Immat Gran (auto) Absolute Neuts (auto) Absolute Nucleated RBC Nucleated RBC % PT INR APTT Puncture Site Right radial ABG pH 7.305 L ABG pCO2 43.2 ABG pO2 50.6 L ABG PO2/FiO2 Ratio 1.81 ABG HCO3 21.0 L ABG O2 Saturation 82.3 L* ABG O2 Content 10.9 L ABG Base Excess -5.0 A-a Gradient 98.1 Oxyhemoglobin 84.3 L* Total Hemoglobin 9.2 L O2 Delivery Device Nasal cannula O2 Liters/Min 2.0 FiO2 28 Sodium Potassium Chloride Carbon Dioxide Anion Gap BUN Creatinine Estim Creat Clear Calc Estimated GFR Glucose POC Capillary Glucose Lactic Acid Calcium Magnesium Total Bilirubin AST ALT Alkaline Phosphatase Ammonia Total Creatine Kinase Troponin I C-Reactive Protein NT-Pro-B Natriuret Pep Total Protein Albumin Lipase TSH Cancelled Free T4 1.24 Urine Color Urine Appearance Urine pH Ur Specific Clifford Urine Protein Urine Glucose (UA) Urine Ketones Ur Blood (Man) Urine Nitrate Urine Bilirubin Urine Urobilinogen Ur Leukocyte Esterase Add Ur Microanalysis Leukocyte Esterase Rfl Urine RBC Urine WBC Urine WBC Clumps Ur Squamous Epith Cells Urine Bacteria Urine Casts Urine Mucus Urine Eosinophils Ur Random Sodium Urine Creatinine Salicylates < 1.0 L Urine Opiates Screen Urine Methadone Screen Acetaminophen < 10 L Ur Barbiturates Screen Ur Phencyclidine Scrn Ur Amphetamine Screen U Benzodiazepines Scrn Urine Cocaine Screen U Cannabinoids Screen Ethyl Alcohol < 10 Hep Bs Antigen Hep Bs Antibody Influenza A (RT-PCR) Negative Influenza B (RT-PCR) Negative RSV (RT-PCR) Negative SARS-CoV-2 RNA (RT-PCR) Negative 12/03/24 12/04/24 12/04/24 22:32 04:34 06:01 WBC 6.7 RBC 2.95 L Hgb 8.2 L Hct 28.1 L MCV 95.3 MCH 27.8 MCHC 29.2 L RDW 14.8 H Plt Count 206 MPV 9.7 Immature Gran % (Auto) 0.7 H Neut % (Auto) 72.2 Lymph % (Auto) 12.2 L Cannon % (Auto) 12.2 H Eos % (Auto) 2.1 Baso % (Auto) 0.6 Lymph # (Auto) 0.82 L Cannon # (Auto) 0.8 H Eos # (Auto) 0.1 Baso # (Auto) 0.0 Abs Immat Gran (auto) 0.05 H Absolute Neuts (auto) 4.9 Absolute Nucleated RBC 0.000 Nucleated RBC % 0.0 PT INR APTT Puncture Site ABG pH ABG pCO2 ABG pO2 ABG PO2/FiO2 Ratio ABG HCO3 ABG O2 Saturation ABG O2 Content ABG Base Excess A-a Gradient Oxyhemoglobin Total Hemoglobin O2 Delivery Device O2 Liters/Min FiO2 Sodium 138 Potassium 4.1 Chloride 107 Carbon Dioxide 25 Anion Gap 6 BUN 36 H Creatinine 4.92 H Estim Creat Clear Calc 16 Estimated GFR 12 L Glucose 66 POC Capillary Glucose 154 H Lactic Acid Calcium 8.2 L Magnesium 1.2 L Total Bilirubin 0.5 AST 45 ALT 16 Alkaline Phosphatase 105 Ammonia Total Creatine Kinase 835 H Troponin I 0.097 H* C-Reactive Protein NT-Pro-B Natriuret Pep Total Protein 5.9 L Albumin 2.8 L Lipase TSH Free T4 Urine Color Urine Appearance Urine pH Ur Specific Clifford Urine Protein Urine Glucose (UA) Urine Ketones Ur Blood (Man) Urine Nitrate Urine Bilirubin Urine Urobilinogen Ur Leukocyte Esterase Add Ur Microanalysis Leukocyte Esterase Rfl Urine RBC Urine WBC Urine WBC Clumps Ur Squamous Epith Cells Urine Bacteria Urine Casts Urine Mucus Urine Eosinophils Ur Random Sodium 76 Urine Creatinine 269.4 Salicylates Urine Opiates Screen Positive A Urine Methadone Screen Negative Acetaminophen Ur Barbiturates Screen Negative Ur Phencyclidine Scrn Negative Ur Amphetamine Screen Negative U Benzodiazepines Scrn Negative Urine Cocaine Screen Negative U Cannabinoids Screen Negative Ethyl Alcohol Hep Bs Antigen Negative Hep Bs Antibody Negative Influenza A (RT-PCR) Influenza B (RT-PCR) RSV (RT-PCR) SARS-CoV-2 RNA (RT-PCR) 12/04/24 12/04/24 12/04/24 09:20 11:27 12:15 WBC RBC Hgb Hct MCV MCH MCHC RDW Plt Count MPV Immature Gran % (Auto) Neut % (Auto) Lymph % (Auto) Cannon % (Auto) Eos % (Auto) Baso % (Auto) Lymph # (Auto) Cannon # (Auto) Eos # (Auto) Baso # (Auto) Abs Immat Gran (auto) Absolute Neuts (auto) Absolute Nucleated RBC Nucleated RBC % PT INR APTT Puncture Site ABG pH ABG pCO2 ABG pO2 ABG PO2/FiO2 Ratio ABG HCO3 ABG O2 Saturation ABG O2 Content ABG Base Excess A-a Gradient Oxyhemoglobin Total Hemoglobin O2 Delivery Device O2 Liters/Min FiO2 Sodium Potassium Chloride Carbon Dioxide Anion Gap BUN Creatinine Estim Creat Clear Calc Estimated GFR Glucose POC Capillary Glucose 120 H Lactic Acid Calcium Magnesium Total Bilirubin AST ALT Alkaline Phosphatase Ammonia Total Creatine Kinase Troponin I 0.151 H* D C-Reactive Protein NT-Pro-B Natriuret Pep Total Protein Albumin Lipase TSH Free T4 Urine Color Brown H Urine Appearance Turbid H Urine pH 5.0 Ur Specific Clifford 1.021 Urine Protein 3+ H Urine Glucose (UA) Trace H Urine Ketones Negative Ur Blood (Man) 3+ H Urine Nitrate Negative Urine Bilirubin 1+ H Urine Urobilinogen 0.2 Ur Leukocyte Esterase Cancelled Add Ur Microanalysis Reviewed Leukocyte Esterase Rfl 3+ H Urine RBC >100 H Urine WBC >100 H Urine WBC Clumps Present H Ur Squamous Epith Cells Many H Urine Bacteria 4+ H Urine Casts >20 Urine Mucus Present Urine Eosinophils None seen Ur Random Sodium Urine Creatinine Salicylates Urine Opiates Screen Urine Methadone Screen Acetaminophen Ur Barbiturates Screen Ur Phencyclidine Scrn Ur Amphetamine Screen U Benzodiazepines Scrn Urine Cocaine Screen U Cannabinoids Screen Ethyl Alcohol Hep Bs Antigen Hep Bs Antibody Influenza A (RT-PCR) Influenza B (RT-PCR) RSV (RT-PCR) SARS-CoV-2 RNA (RT-PCR)
[2024-12-04 14:38] LABS: Urea Random Urine 114 MG/DL
[2024-12-04] MEDS: MAGNESIUM SULF 2 GM/WATER 50ML 2 GM/50 ML BAG IVPB (14:47)
[2024-12-04 15:16] LABS: Total Protein Urine Random > 600 mg/dL; Ur Ttl Prot Creatinine Ratio > 2.58 mg/mg (0-0.20)
[2024-12-04 15:36] LABS: Total Protein Urine Random > 600 mg/dL
[2024-12-04] MEDS: DOXYCYCLINE IV 100 MG in SODIUM CHLORIDE 0.9% IV 100 ML IVPB (16:50)
[2024-12-04] MEDS: MIRTAZAPINE 7.5 MG TABLET PO (21:23)
[2024-12-04] MEDS: oxyCODONE HCL (*CRX) 5 MG TAB IR PO (21:24)
[2024-12-04] MEDS: VANCOMYCIN 1,500 MG/NS 500 ML 1,500 MG/500 ML BAG 250 MG IVPB (22:35)
[2024-12-05] VITALS (20 sets, daily range): BP systolic 95–155; BP diastolic 38–107; PULSE 51–108; RESP 18–24; TEMP 36.9–37.3; O2SAT 92–98
[2024-12-05 04:24] LABS: Hematocrit 28.1 % (42.0-52.0); Hemoglobin 8.2 g/dL (14.0-18.0); Immature Granulocyte Percent A 0.8 % (0-0.5); Lymphocytes Absolute Auto 0.98 K/mm3 (0.9-3.2); Mean Corpuscular HGB Conc 29.2 g/dl (32-36); Mean Corpuscular Hemoglobin 28.0 pg (26-34); Mean Corpuscular Volume 95.9 fl (80-100); Nucleated Red Blood Cells Absolute Auto 0.000 K/mm3 (0.0-0.012); Nucleated Red Blood Cells Perc 0.0 % (0.0-0.2); Platelet Count Result 206 k/mm3 (150-375); Red Blood Count 2.93 M/mm3 (4.6-6.20); White Blood Count 7.5 K/mm3 (4.5-10.0)
[2024-12-05] MEDS: WATER FOR IRRIGATION, STERILE 1,000 ML BOTTLE 1000 ML (04:38)
[2024-12-05] MEDS: DOXYCYCLINE IV 100 MG in SODIUM CHLORIDE 0.9% IV 100 ML IVPB ×2 (04:38→15:24)
[2024-12-05 04:51] LABS: Alanine Aminotransferase 18 U/L (6-50); Albumin Level 2.7 g/dL (3.5-5.1); Alkaline Phosphatase 125 U/L (38-126); Anion Gap 8 mmol/L (4-12); Aspartate Amino Transferase 44 U/L (17-59); Bilirubin,Total 0.4 mg/dL (0.2-1.3); Blood Urea Nitrogen 43 mg/dL (9-20); Calcium 8.3 mg/dL (8.4-10.2); Carbon Dioxide 23 mmol/L (22-30); Chloride 105 mmol/L (98-107); Estimated CRCL calculation 14 ml/min; Estimated Glomerular Filt Rate 10; Glucose 100 mg/dL (65-110); Magnesium 1.9 mg/dL (1.6-2.3); Potassium 4.0 mmol/L (3.4-5.0); Sodium 136 mmol/L (137-145); Total Protein 5.8 g/dL (6.3-8.2)
[2024-12-05 04:53] LABS: Burr Cells 1+; Schistocytes None Seen
--- NOTE | 2024-12-05 08:12 | PM.IMPN ---
Progress Note: A&P Assessment and Plan (1) Multifocal pneumonia: Code(s): J18.8 - Other pneumonia, unspecified organism Status: Acute (2) Sepsis: Code(s): A41.9 - Sepsis, unspecified organism Status: Acute (3) Sepsis associated hypotension: Code(s): A41.9 - Sepsis, unspecified organism; I95.9 - Hypotension, unspecified Status: Acute Plan Sepsis LLL Pnuemonia HAP, recent hospitalization CT chest reviewed Blood culture Cefepime and Doxycycline MRSA negative UTI complicated Follow urine culture on cefepime ACute hypoxemic resp failur e on 4 liters oxygen continue above care and titrate oxygen Recent acute renal failure creatinine peaking to 7 was down to 3.6 at discharge dialysis was discontinued. Readmission with creatinine of 4.6 and continues to incline. Nephrology consulted Will add albumin and stop IV fluid DM2 SSi with accucheks Hypertension: Chronic anemia no signs of bleeding continue to monitor Recent partial small-bowel obstruction/hydrops gallbladder Mildly obstructing left ureteral calculus and right renal stones status post cystoscopy bilateral retrograde left ureteroscopy stone extraction bilateral ureteral stent placement 11/16/2024 and Huddleston catheter placement DVT prophylaxis on Sq Heparin Subjective Date/time seen: 12/05/24 08:12 Interval history: Chart reviewed. Remains afebrile for past 24 hours. Blood pressures improved. On 5 L oxygen via nasal cannula. Patient is more awake today. Arms are swollen. Huddleston catheter in place. Urine output is poor Review of Systems Review of Systems: All systems reviewed & are unremarkable except as noted in HPI and below (Subjective/HPI) Exam Narrative: GENERAL: Ill-appearing, alert and conversion oriented to place and person HEAD: Normocephalic, atraumatic. EYES: Non injected, non icteric. Pin point pupil on the R. Asymmetric pupil 4mm on the left, non reactive. Matted eyes ENT: No epistaxis. Dry mucous membranes NECK: Supple. CHEST: Poor air movement no respiratory distress HEART: Regular rate and rhythm. . ABDOMEN: Soft, nondistended. No rigidity or guarding SKIN: Dry, no rash. NEURO: Alert oriented to place and person Extremities: Swollen upper extremities bilaterally Objective Data Vital Signs Vital Signs: Vital Signs - 24 hr 12/04/24 10:00 12/04/24 10:08 12/04/24 11:15 Temperature Pulse Rate 61 Respiratory Rate Blood Pressure 96/38 L Pulse Oximetry 94 Oxygen Delivery Nasal Cannula Oxygen Flow Rate 4 12/04/24 11:15 12/04/24 12:00 12/04/24 14:00 Temperature 98.5 F Pulse Rate 69 63 72 Respiratory Rate 24 H Blood Pressure 120/56 L Pulse Oximetry 95 Oxygen Delivery Oxygen Flow Rate 12/04/24 16:00 12/04/24 16:00 12/04/24 18:00 Temperature 97.5 F L Pulse Rate 58 L 55 L 65 Respiratory Rate 22 H Blood Pressure 109/59 L Pulse Oximetry 98 Oxygen Delivery Oxygen Flow Rate 12/04/24 20:00 12/04/24 20:00 12/04/24 20:00 Temperature 99.1 F Pulse Rate 61 59 L Respiratory Rate 20 Blood Pressure 106/50 L Pulse Oximetry 92 Oxygen Delivery Nasal Cannula Oxygen Flow Rate 5 12/04/24 22:00 12/05/24 00:00 12/05/24 00:00 Temperature 99.1 F Pulse Rate 51 L 51 L 54 L Respiratory Rate 22 H Blood Pressure 95/40 L Pulse Oximetry 94 Oxygen Delivery Oxygen Flow Rate 12/05/24 00:00 12/05/24 02:00 12/05/24 04:00 Temperature Pulse Rate 56 L Respiratory Rate Blood Pressure Pulse Oximetry 94 94 Oxygen Delivery Nasal Cannula Nasal Cannula Oxygen Flow Rate 5 5 12/05/24 04:00 12/05/24 04:00 Temperature 99.2 F Pulse Rate 64 72 Respiratory Rate 18 Blood Pressure 111/45 L Pulse Oximetry 93 Oxygen Delivery Oxygen Flow Rate Intake/Output Intake/Output: Intake & Output 12/02/24 12/03/24 12/04/24 12/05/24 23:59 23:59 23:59 23:59 Intake Total 2049 200 Output Total 30 0 Balance 0 170 0 Meds/Results Medications: Active Medications Generic Name Dose Route Start Last Admin Trade Name Freq PRN Reason Stop Dose Admin Acetaminophen 650 mg 12/04/24 01:55 Acetaminophen 650 Mg Suppository RECTAL Q6H PRN Mild Pain (1-3) or Fever Albuterol 2 puff 12/04/24 14:20 Albuterol Sulfate (*Sp) Aerosol 1 Puff INHALATION Q4HRT PRN Wheezing Aspirin 81 mg 12/05/24 09:00 Aspirin 81 Mg Enteric Tablet PO DAILY BERNARDO Dextrose 12.5 gm 12/04/24 00:50 Dextrose 50% 25 Gm/50 Ml Syringe IV PUSH PRN PRN Hypoglycemia Protocol Fluticasone/Umeclidinium/Vilanterol 1 puff 12/05/24 09:00 Fluticasone/Umeclidin/Vilanter 100-62.5-25 Mcg Ellipta INHALATION DAILY BERNARDO Glucose 15 gm 12/04/24 00:50 Glucose Oral Gel 15 Gm Of Glucse In 37.5 Gm Tube PO PRN PRN Hypoglycemia Protocol Heparin Sodium (Porcine) 5,000 units 12/04/24 14:00 12/05/24 05:33 Heparin Sodium 5,000 Units/Ml Vial SUB-Q 5,000 units Q8HR BERNARDO Administration Dextrose 1,000 mls @ 100 mls/hr 12/04/24 00:50 Dextrose 5% 1,000 Ml IVPB PRN PRN Hypoglycemia Protocol Cefepime HCl 1 gm/ Sodium 50 mls @ 100 mls/hr 12/04/24 09:00 12/04/24 21:20 Chloride IVPB 100 mls/hr Q12H BERNARDO Administration Dextrose/Sodium Chloride 1,000 mls @ 100 mls/hr 12/04/24 05:15 12/04/24 23:57 Dextrose 5% Sodium Chloride 0.9% IV CONT Not Given .Q10H BERNARDO Doxycycline Hyclate 100 mg/ 100 mls @ 100 mls/hr 12/04/24 16:00 12/05/24 04:38 Sodium Chloride IVPB 100 mls/hr Q12H BERNARDO Administration Mirtazapine 7.5 mg 12/04/24 21:00 12/04/24 21:23 Mirtazapine 7.5 Mg Tablet PO 7.5 mg HS BERNARDO Administration Miscellaneous Information 0 each 12/04/24 00:01 12/05/24 00:13 Cabergoline Nonform Can Pt Bring From Home? XX 01/03/25 00:00 Not Given CLARIFY BERNARDO Non-Formulary Medication 1 mg 12/04/24 14:30 Cabergoline PO 01/03/25 14:29 MoFr BERNARDO Oxycodone HCl 5 mg 12/04/24 14:02 12/04/24 21:24 Oxycodone Hcl (*Crx) 5 Mg Tab Ir PO 5 mg Q12HR PRN Administration Pain Rated 7-10 Tamsulosin HCl 0.4 mg 12/05/24 09:00 Tamsulosin Hcl 0.4 Mg Capsule PO DAILY [facility] Umeclidinium [place] 1 puff 12/05/24 08:00 Umeclidinium [place] 62.5 Mcg Ellipta INHALATION DAILYRT [facility] Vancomycin HCl 1 each 12/03/24 18:47 Vancomycin For Acute Kidney Injury IVPB PRN PRN Vancomycin Protocol Radiology Results: ITS Impressions Head CT 12/03/24 18:50 IMPRESSION: No acute intracranial process. Chest X-Ray 12/03/24 19:22 IMPRESSION: Subsegmental left medial basilar atelectasis/consolidation. Chest/Abdomen/Pelvis CT 12/04/24 07:39 IMPRESSION: 1. Left lower lobe pneumonia. 2. Mild to moderate bilateral renal atrophy with bilateral renal stents in expected position and similar pattern of increased density in the bilateral renal collecting systems which could represent either small residual excreted contrast as a recent contrast utilization or stones/stone fragments. Labs Labs: Laboratory Results - last 24 hr 12/03/24 12/04/24 12/04/24 22:32 09:20 11:27 WBC RBC Hgb Hct MCV MCH MCHC RDW Plt Count MPV Immature Gran % (Auto) Neut % (Auto) Lymph % (Auto) [place] % (Auto) Eos % (Auto) Baso % (Auto) Lymph # (Auto) [place] # (Auto) Eos # (Auto) Baso # (Auto) Abs Immat Gran (auto) Absolute Neuts (auto) Absolute Nucleated RBC Band Neutrophils % Nucleated RBC % Platelet Estimate [place] Cells Schistocytes Sodium Potassium Chloride Carbon Dioxide Anion Gap BUN Creatinine Estim Creat Clear Calc Estimated GFR Glucose POC Capillary Glucose 120 H Lactic Acid Calcium Magnesium Total Bilirubin AST ALT Alkaline Phosphatase Troponin I 0.151 H* D Total Protein Albumin Urine Color Cancelled Urine Appearance Cancelled Urine pH Cancelled Ur Specific [place] Cancelled Urine Protein Cancelled Urine Glucose (UA) Cancelled Urine Ketones Cancelled Ur Blood (Man) Cancelled Urine Nitrate Cancelled Urine Bilirubin Cancelled Urine Urobilinogen Cancelled Ur Leukocyte Esterase Add Ur Microanalysis Cancelled Leukocyte Esterase Rfl Cancelled Urine RBC Cancelled Urine WBC Cancelled Urine WBC Clumps Cancelled Ur Squamous Epith Cells Cancelled Ur Transition Epith Cell Cancelled Ur Renal Epithelial Cell Cancelled [place] Biurate Crystals Cancelled Calcium Carbonate Cryst Cancelled Calcium Phosphate Cryst Cancelled Calcium Oxalate Crystal Cancelled Leucine Crystals Cancelled Cystine Crystals Cancelled Uric Acid Crystals Cancelled Triple Phos Crystals Cancelled Sulfonamide Crystals Cancelled Cholesterol Crystals Cancelled Talc Crystals Cancelled Tyrosine Crystals Cancelled Hippuric Acid Crystals Cancelled Bilirubin Crystals Cancelled Other Crystals Cancelled Amorphous Sediment Cancelled Other Sediment Cancelled Urine Bacteria Cancelled Urine Casts Cancelled Cellular Casts Cancelled Epithelial Casts Cancelled Fatty Casts Cancelled Hyaline Casts Cancelled Granular Casts Cancelled Waxy Casts Cancelled Broad Casts Cancelled RBC Casts Cancelled WBC Casts Cancelled Urine Starch Cancelled Urine Mucus Cancelled Urine Trichomonas Cancelled Urine Yeast (Budding) Cancelled Ur Oval Fat Bodies Cancelled Urine Eosinophils U Random Total Protein Ur Random Sodium Ur Random Urea Urine Creatinine Protein/Creat Ratio 2 Sperm Presence Cancelled Vancomycin Trough 12/04/24 12/04/24 12/04/24 12:15 12:15 12:15 WBC RBC Hgb Hct MCV MCH MCHC RDW Plt Count MPV Immature Gran % (Auto) Neut % (Auto) Lymph % (Auto) [place] % (Auto) Eos % (Auto) Baso % (Auto) Lymph # (Auto) [place] # (Auto) Eos # (Auto) Baso # (Auto) Abs Immat Gran (auto) Absolute Neuts (auto) Absolute Nucleated RBC Band Neutrophils % Nucleated RBC % Platelet Estimate [place] Cells Schistocytes Sodium Potassium Chloride Carbon Dioxide Anion Gap BUN Creatinine Estim Creat Clear Calc Estimated GFR Glucose POC Capillary Glucose Lactic Acid Calcium Magnesium Total Bilirubin AST ALT Alkaline Phosphatase Troponin I Total Protein Albumin Urine Color Brown H Urine Appearance Turbid H Urine pH 5.0 Ur Specific [place] 1.021 Urine Protein 3+ H Urine Glucose (UA) Trace H Urine Ketones Negative Ur Blood (Man) 3+ H Urine Nitrate Negative Urine Bilirubin 1+ H Urine Urobilinogen 0.2 Ur Leukocyte Esterase Cancelled Add Ur Microanalysis Reviewed Leukocyte Esterase Rfl 3+ H Urine RBC >100 H Urine WBC >100 H Urine WBC Clumps Present H Ur Squamous Epith Cells Many H Ur Transition Epith Cell Ur Renal Epithelial Cell [place] Biurate Crystals Calcium Carbonate Cryst Calcium Phosphate Cryst Calcium Oxalate Crystal Leucine Crystals Cystine Crystals Uric Acid Crystals Triple Phos Crystals Sulfonamide Crystals Cholesterol Crystals Talc Crystals Tyrosine Crystals Hippuric Acid Crystals Bilirubin Crystals Other Crystals Amorphous Sediment Other Sediment Urine Bacteria 4+ H Urine Casts >20 Cellular Casts Epithelial Casts Fatty Casts Hyaline Casts Granular Casts Waxy Casts Broad Casts RBC Casts WBC Casts Urine Starch Urine Mucus Present Urine Trichomonas Urine Yeast (Budding) Ur Oval Fat Bodies Urine Eosinophils None seen U Random Total Protein > 600 > 600 Ur Random Sodium 71 Ur Random Urea 114 Urine Creatinine 232.4 235.1 Protein/Creat Ratio 2 > 2.58 H Sperm Presence Vancomycin Trough 12/04/24 12/04/24 12/05/24 19:09 20:53 01:19 WBC RBC Hgb Hct MCV MCH MCHC RDW Plt Count MPV Immature Gran % (Auto) Neut % (Auto) Lymph % (Auto) [place] % (Auto) Eos % (Auto) Baso % (Auto) Lymph # (Auto) [place] # (Auto) Eos # (Auto) Baso # (Auto) Abs Immat Gran (auto) Absolute Neuts (auto) Absolute Nucleated RBC Band Neutrophils % Nucleated RBC % Platelet Estimate [place] Cells Schistocytes Sodium Potassium Chloride Carbon Dioxide Anion Gap BUN Creatinine Estim Creat Clear Calc Estimated GFR Glucose POC Capillary Glucose 116 H 93 Lactic Acid Calcium Magnesium Total Bilirubin AST ALT Alkaline Phosphatase Troponin I Total Protein Albumin Urine Color Urine Appearance Urine pH Ur Specific [place] Urine Protein Urine Glucose (UA) Urine Ketones Ur Blood (Man) Urine Nitrate Urine Bilirubin Urine Urobilinogen Ur Leukocyte Esterase Add Ur Microanalysis Leukocyte Esterase Rfl Urine RBC Urine WBC Urine WBC Clumps Ur Squamous Epith Cells Ur Transition Epith Cell Ur Renal Epithelial Cell [place] Biurate Crystals Calcium Carbonate Cryst Calcium Phosphate Cryst Calcium Oxalate Crystal Leucine Crystals Cystine Crystals Uric Acid Crystals Triple Phos Crystals Sulfonamide Crystals Cholesterol Crystals Talc Crystals Tyrosine Crystals Hippuric Acid Crystals Bilirubin Crystals Other Crystals Amorphous Sediment Other Sediment Urine Bacteria Urine Casts Cellular Casts Epithelial Casts Fatty Casts Hyaline Casts Granular Casts Waxy Casts Broad Casts RBC Casts WBC Casts Urine Starch Urine Mucus Urine Trichomonas Urine Yeast (Budding) Ur Oval Fat Bodies Urine Eosinophils U Random Total Protein Ur Random Sodium Ur Random Urea Urine Creatinine Protein/Creat Ratio 2 Sperm Presence Vancomycin Trough 12.2 12/05/24 04:11 WBC 7.5 RBC 2.93 L Hgb 8.2 L Hct 28.1 L MCV 95.9 MCH 28.0 MCHC 29.2 L RDW 15.1 H Plt Count 206 MPV 9.6 Immature Gran % (Auto) 0.8 H Neut % (Auto) 70.3 Lymph % (Auto) 13.2 L [place] % (Auto) 9.8 H Eos % (Auto) 5.1 H Baso % (Auto) 0.8 Lymph # (Auto) 0.98 [place] # (Auto) 0.7 H Eos # (Auto) 0.4 H Baso # (Auto) 0.1 Abs Immat Gran (auto) 0.06 H Absolute Neuts (auto) 5.2 Absolute Nucleated RBC 0.000 Band Neutrophils % Not Reportable Nucleated RBC % 0.0 Platelet Estimate Adequate [place] Cells 1+ Schistocytes None seen Sodium 136 L Potassium 4.0 Chloride 105 Carbon Dioxide 23 Anion Gap 8 BUN 43 H Creatinine 5.62 H Estim Creat Clear Calc 14 Estimated GFR 10 L Glucose 100 POC Capillary Glucose Lactic Acid 1.1 Calcium 8.3 L Magnesium 1.9 Total Bilirubin 0.4 AST 44 ALT 18 Alkaline Phosphatase 125 Troponin I Total Protein 5.8 L Albumin 2.7 L Urine Color Urine Appearance Urine pH Ur Specific [place] Urine Protein Urine Glucose (UA) Urine Ketones Ur Blood (Man) Urine Nitrate Urine Bilirubin Urine Urobilinogen Ur Leukocyte Esterase Add Ur Microanalysis Leukocyte Esterase Rfl Urine RBC Urine WBC Urine WBC Clumps Ur Squamous Epith Cells Ur Transition Epith Cell Ur Renal Epithelial Cell [place] Biurate Crystals Calcium Carbonate Cryst Calcium Phosphate Cryst Calcium Oxalate Crystal Leucine Crystals Cystine Crystals Uric Acid Crystals Triple Phos Crystals Sulfonamide Crystals Cholesterol Crystals Talc Crystals Tyrosine Crystals Hippuric Acid Crystals Bilirubin Crystals Other Crystals Amorphous Sediment Other Sediment Urine Bacteria Urine Casts Cellular Casts Epithelial Casts Fatty Casts Hyaline Casts Granular Casts Waxy Casts Broad Casts RBC Casts WBC Casts Urine Starch Urine Mucus Urine Trichomonas Urine Yeast (Budding) Ur Oval Fat Bodies Urine Eosinophils U Random Total Protein Ur Random Sodium Ur Random Urea Urine Creatinine Protein/Creat Ratio 2 Sperm Presence Vancomycin Trough
--- NOTE | 2024-12-05 09:37 | PCSTNOTE ---
Attempted ST BSE 12/05 poorly responsive to assess at this time contacted nursing and hospitalist.
--- NOTE | 2024-12-05 09:47 | P.PNNP_ITS ---
Progress Note: A&P Assessment and Plan (1) Acute kidney injury: Code(s): N17.9 - Acute kidney failure, unspecified Status: Acute Assessment and Plan: * continues to worsen * as noted by admission labs * baseline creatinine seems to run ~ 1.1 - 1.3mg/dl (as noted earlier this year) * creatinine 1.13mg/dl in July 2024 * episode of BRYCE/ARF on last hospitalization (early November 2024) -- required [facility] [employer]/dialysis x 2 sessions * discharge creatinine was 3.66mg/dl (on 11/24/24) * admission creatinine 4.6mg/dl * suspect multifactorial etiology: * possible prerenal factors * insensible losses (due to high fevers) * hypotension/hemodynamic instability * infection/early sepsis (pneumonia + UTI) * other(?) * evaluation to date noted: * CT of C/A/P noted - mild to moderate bilateral renal atrophy * urine electrolytes (by FeUrea) prerenal * urine eosinophils negative * UA suggestive of infection * proteinuria noted * CPK elevated but not enough to affect kidney function * remains at risk for [facility] [employer]/dialysis once again... * holding further IVFs -- using IV albumin for volume expansion * follow trend of repeat labs and UOP (2) Hypotension: Qualifiers: Hypotension type: hypotension due to hypovolemia Qualified Code(s): E 86.1 - Hypovolemia Code(s): I95.9 - Hypotension, unspecified Status: Acute Assessment and Plan: * clinically better * noted in ER/upon presentation * early sepsis(?) on top of possible volume depletion(?) * improvement noted following IVF bolus * holding BP medications * IVFs on hold (given anuria) -- using IV albumin for volume expansion * follow trend of hemodynamics (3) Acute hypoxic respiratory failure: Code(s): J96.01 - Acute respiratory failure with hypoxia Status: Acute Assessment and Plan: * presumably due to pneumonia * requiring supplemental oxygen (up to 5L NC) * follow respiratory status * monitor for fluid overload (4) Altered mental status: Code(s): R41.82 - Altered mental status, unspecified Status: Acute Assessment and Plan: * some improvement * presumably due to infection +/- BRYCE * head CT negative in ER * follow mentation (5) Pneumonia: Code(s): J18.9 - Pneumonia, unspecified organism Status: Acute Assessment and Plan: * as noted by imaging on admission * follow cultures * follow respiratory status * on antibiotics (6) Urinary tract infection: Code(s): N39.0 - Urinary tract infection, site not specified Status: Acute Assessment and Plan: * suggested by admission UA * however, has chronic linton catheter * this was exchanged in the ER * follow culture data * on antibiotics (7) Anemia: Code(s): D64.9 - Anemia, unspecified Status: Acute Assessment and Plan: * due to BRYCE/ARF, CKD(?), and acute illness * follow trend of H/H * may need to consider KARIS (8) Type 2 diabetes mellitus: Qualifiers: Diabetes mellitus 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 L Subjective Date/time seen: 12/05/24 09:47 Interval history: Follow-up for acute kidney injury/acute renal failure (on chronic kidney disease?) Mentation seems a bit better as he is more awake and verbal but he seems to be confused; stable hemodynamics in the last 24 hours and without fever, however, he is still not making much urine and is requiring more oxygen support (5L by NC) with noted increase in upper arm swelling/edema. Exam 2 Narrative: General: large but ill-appearing male in NAD Heart: normal S1 and S2; no rub Lungs: clear anteriorly Abdomen: obese with positive bowel sounds Extremities: no cyanosis or clubbing; ++ UE edema Skin: warm and dry Objective Data Vital Signs Vital Signs: Vital Signs Temp Pulse Resp BP Pulse Ox O2 Del Method O2 Flow Rate 12/05/24 08:00 56 L 92 5 12/05/24 07:37 98.4 F 58 L 20 114/38 L 98 12/05/24 04:00 99.2 F 72 18 111/45 L 93 12/05/24 04:00 64 12/05/24 04:00 94 Nasal Cannula 5 12/05/24 02:00 56 L 12/05/24 00:00 94 Nasal Cannula 5 12/05/24 00:00 54 L 12/05/24 00:00 99.1 F 51 L 22 H 95/40 L 94 12/04/24 22:00 51 L 12/04/24 20:00 59 L 12/04/24 20:00 92 Nasal Cannula 5 12/04/24 20:00 99.1 F 61 20 106/50 L Intake/Output Intake/Output: Intake & Output 12/02/24 12/03/24 12/04/24 12/05/24 23:59 23:59 23:59 23:59 Intake Total 2049 200 1300 Output Total 30 0 Balance 2049 170 1300 Meds/Results Medications: Active Medications Generic Name Dose Route Start Last Admin Trade Name Freq PRN Reason Stop Dose Admin Acetaminophen 650 mg 12/04/24 01:55 Acetaminophen 650 Mg Suppository RECTAL Q6H PRN Mild Pain (1-3) or Fever Acetaminophen 650 mg 12/05/24 08:39 Acetaminophen 325 Mg Tablet PO Q8H PRN Pain, Mild Albuterol 2 puff 12/04/24 14:20 Albuterol Sulfate (*Sp) Aerosol 1 Puff INHALATION Q4HRT PRN Wheezing Albuterol/Ipratropium 3 ml 12/05/24 14:00 12/05/24 16:30 Ipratropium 0.5 Mg/Albuterol Sulfate 2.5 Mg Ampul.Neb 3 Ml INHALATION Not Given TIDRT BERNARDO Artificial Tears 1 drop 12/05/24 08:48 Artificial Tears Ophth Soln 15 Ml Bottle EACH EYE QID PRN Dry Eye(s) Aspirin 81 mg 12/05/24 09:00 12/05/24 11:10 Aspirin 81 Mg Enteric Tablet PO Not Given DAILY BERNARDO Benzonatate 100 mg 12/05/24 08:39 Benzonatate 100 Mg Capsule PO TID PRN cough Brimonidine Tartrate 1 drop 12/05/24 14:00 12/05/24 13:06 Brimonidine Tartrate 0.2% Op Soln 5 Ml Btl EACH EYE 1 drop Q8HR BERNARDO Administration Brinzolamide 1 drop 12/05/24 14:00 12/05/24 13:06 Brinzolamide 1% Ophth Susp 10 Ml EACH EYE 1 drop Q8HR BERNARDO Administration Carvedilol 3.125 mg 12/05/24 08:00 12/05/24 17:19 Carvedilol 3.125 Mg Tablet PO Not Given BIDWM BERNARDO Dextrose 12.5 gm 12/04/24 00:50 12/05/24 13:05 Dextrose 50% 25 Gm/50 Ml Syringe IV PUSH 12.5 gm PRN PRN Administration Hypoglycemia Protocol Escitalopram Oxalate 10 mg 12/05/24 09:00 12/05/24 10:29 Escitalopram Oxalate 10 Mg Tablet PO Not Given QAM BERNARDO Fluticasone/Umeclidinium/Vilanterol 1 puff 12/05/24 09:00 12/05/24 10:00 Fluticasone/Umeclidin/Vilanter 100-62.5-25 Mcg Ellipta INHALATION 1 puff DAILY BERNARDO Administration Glucose 15 gm 12/04/24 00:50 Glucose Oral Gel 15 Gm Of Glucse In 37.5 Gm Tube PO PRN PRN Hypoglycemia Protocol Heparin Sodium (Porcine) 5,000 units 12/04/24 14:00 12/05/24 13:18 Heparin Sodium 5,000 Units/Ml Vial SUB-Q 5,000 units Q8HR BERNARDO Administration Dextrose 1,000 mls @ 100 mls/hr 12/04/24 00:50 Dextrose 5% 1,000 Ml IVPB PRN PRN Hypoglycemia Protocol Cefepime HCl 1 gm/ Sodium 50 mls @ 100 mls/hr 12/04/24 09:00 12/05/24 11:11 Chloride IVPB Infused Q12H BERNARDO Infusion Doxycycline Hyclate 100 mg/ 100 mls @ 100 mls/hr 12/04/24 16:00 12/05/24 15:24 Sodium Chloride IVPB 100 mls/hr Q12H BERNARDO Administration Albumin Human 100 mls @ 60 mls/hr 12/05/24 12:00 12/05/24 17:19 Albutein IVPB 60 mls/hr Q6HR BERNARDO Administration Insulin Aspart 2 - 5 units 12/05/24 12:00 12/05/24 17:19 Insulin Aspart (*Bkc) 100 Units/Ml SUB-Q Not Given TIDWM BERNARDO Protocol Lidocaine 1 patch 12/05/24 09:00 12/05/24 10:50 Lidocaine 5% Patch TOPICAL Not Given DAILY BERNARDO Loperamide HCl 2 mg 12/05/24 08:39 Loperamide Hcl 2 Mg Capsule PO Q6H PRN Diarrhea Mirtazapine 7.5 mg 12/04/24 21:00 12/04/24 21:23 Mirtazapine 7.5 Mg Tablet PO 7.5 mg HS BERNARDO Administration Miscellaneous Information 0 each 12/04/24 00:01 12/05/24 00:13 Cabergoline Nonform Can Pt Bring From Home? XX 01/03/25 00:00 Not Given CLARIFY [facility] Non-Formulary Medication 1 mg 12/04/24 14:30 Cabergoline PO 01/03/25 14:29 MoFr BERNARDO Oxycodone HCl 5 mg 12/04/24 14:02 12/04/24 21:24 Oxycodone Hcl (*Crx) 5 Mg Tab Ir PO 5 mg Q12HR PRN Administration Pain Rated 7-10 Tamsulosin HCl 0.4 mg 12/05/24 09:00 12/05/24 11:10 Tamsulosin Hcl 0.4 Mg Capsule PO Not Given DAILY BERNARDO Umeclidinium [place] 1 puff 12/05/24 08:00 12/05/24 12:04 Umeclidinium [place] 62.5 Mcg Ellipta INHALATION Not Given DAILYRT [facility] Vancomycin HCl 1 each 12/03/24 18:47 Vancomycin For Acute Kidney Injury IVPB PRN PRN Vancomycin Protocol Radiology Results: ITS Impressions Head CT 12/03/24 18:50 IMPRESSION: No acute intracranial process. Chest/Abdomen/Pelvis CT 12/04/24 07:39 IMPRESSION: 1. Left lower lobe pneumonia. 2. Mild to moderate bilateral renal atrophy with bilateral renal stents in expected position and similar pattern of increased density in the bilateral renal collecting systems which could represent either small residual excreted contrast as a recent contrast utilization or stones/stone fragments. Chest X-Ray 12/05/24 11:06 Impression: 1: Bibasilar airspace disease which may represent atelectasis and/or pneumonia. No significant change compared with 12/03/2024. Labs Labs: Laboratory Tests 12/05/24 04:11 12/05/24 04:11 Lactic Acid 1.1 Calcium 8.3 L Magnesium 1.9 Total Bilirubin 0.4 AST 44 ALT 18 Alkaline Phosphatase 125 Total Protein 5.8 L Albumin 2.7 L Microbiology 07/27/25 17:52 Blood Blood Culture - Preliminary 12/04/24 04:34 Blood Blood Culture - Preliminary
[2024-12-05] MEDS: FLUTICASONE/UMECLIDIN/VILANTER 100-62.5-25 MCG ELLIPTA 1 PUFF INHALATION (10:00)
[2024-12-05 10:08] LABS: Triiodothyronine (T3), Free 1.5 pg/mL (2.0-4.4)
[2024-12-05] MEDS: CEFEPIME 1 GM in SODIUM CHLORIDE 0.9% IV 50 ML 100 ML IVPB ×2 (10:40→21:52)
[2024-12-05] MEDS: ALBUMIN HUMAN 25% 25 GM/100 ML 100 ML IVPB ×3 (11:03→23:53)
[2024-12-05] MEDS: DEXTROSE 50% 25 GM/50 ML SYRINGE IV PUSH (13:05)
[2024-12-05] MEDS: BRINZOLAMIDE 1% OPHTH SUSP 10 ML 1 DROP EACH EYE ×2 (13:06→22:10)
[2024-12-05] MEDS: BRIMONIDINE TARTRATE 0.2% OP SOLN 5 ML BTL 1 DROP EACH EYE ×2 (13:06→22:10)
--- NOTE | 2024-12-05 16:40 | PCRCNOTE ---
1400 respiratory treatment not given, out of administration timeframe. See next scheduled tx.
[2024-12-05] MEDS: IPRATROPIUM 0.5 MG/ALBUTEROL SULFATE 2.5 MG AMPUL.NEB 3 ML INHALATION (19:54)
[2024-12-05 21:20] LABS: Hematocrit 25.0 % (42.0-52.0); Hemoglobin 7.5 g/dL (14.0-18.0); Mean Corpuscular HGB Conc 30.0 g/dl (32-36); Mean Corpuscular Hemoglobin 28.0 pg (26-34); Mean Corpuscular Volume 93.3 fl (80-100); Platelet Count Result 195 k/mm3 (150-375); Red Blood Count 2.68 M/mm3 (4.6-6.20); White Blood Count 8.3 K/mm3 (4.5-10.0)
[2024-12-05 22:19] LABS: Albumin Level 3.1 g/dL (3.5-5.1); Anion Gap 10 mmol/L (4-12); Blood Urea Nitrogen 44 mg/dL (9-20); Calcium 8.7 mg/dL (8.4-10.2); Carbon Dioxide 21 mmol/L (22-30); Chloride 110 mmol/L (98-107); Estimated CRCL calculation 14 ml/min; Estimated Glomerular Filt Rate 10; Glucose 96 mg/dL (65-110); Magnesium 1.7 mg/dL (1.6-2.3); Potassium 3.8 mmol/L (3.4-5.0); Sodium 141 mmol/L (137-145)
[2024-12-06] VITALS (25 sets, daily range): BP systolic 106–124; BP diastolic 34–45; PULSE 54–75; RESP 12–24; TEMP 36.5–37.6; O2SAT 6–100
[2024-12-06] MEDS: DOXYCYCLINE IV 100 MG in SODIUM CHLORIDE 0.9% IV 100 ML IVPB ×2 (03:51→16:52)
[2024-12-06] MEDS: ALBUMIN HUMAN 25% 25 GM/100 ML 100 ML IVPB ×4 (05:32→23:21)
[2024-12-06] MEDS: BRINZOLAMIDE 1% OPHTH SUSP 10 ML 1 DROP EACH EYE ×3 (05:33→21:46)
[2024-12-06] MEDS: BRIMONIDINE TARTRATE 0.2% OP SOLN 5 ML BTL 1 DROP EACH EYE ×3 (05:34→21:46)
[2024-12-06 05:59] LABS: Alanine Aminotransferase 16 U/L (6-50); Albumin Level 2.9 g/dL (3.5-5.1); Alkaline Phosphatase 137 U/L (38-126); Anion Gap 11 mmol/L (4-12); Aspartate Amino Transferase 41 U/L (17-59); Bilirubin,Total 0.7 mg/dL (0.2-1.3); Blood Urea Nitrogen 46 mg/dL (9-20); Calcium 8.5 mg/dL (8.4-10.2); Carbon Dioxide 19 mmol/L (22-30); Chloride 113 mmol/L (98-107); Estimated CRCL calculation 15 ml/min; Estimated Glomerular Filt Rate 10; Glucose 79 mg/dL (65-110); Magnesium 1.6 mg/dL (1.6-2.3); Potassium 4.1 mmol/L (3.4-5.0); Sodium 143 mmol/L (137-145); Total Protein 5.4 g/dL (6.3-8.2)
[2024-12-06 06:05] LABS: Hematocrit 25.1 % (42.0-52.0); Hemoglobin 7.6 g/dL (14.0-18.0); Immature Granulocyte Percent A 1.1 % (0-0.5); Lymphocytes Absolute Auto 0.88 K/mm3 (0.9-3.2); Mean Corpuscular HGB Conc 30.3 g/dl (32-36); Mean Corpuscular Hemoglobin 28.3 pg (26-34); Mean Corpuscular Volume 93.3 fl (80-100); Nucleated Red Blood Cells Absolute Auto 0.000 K/mm3 (0.0-0.012); Nucleated Red Blood Cells Perc 0.0 % (0.0-0.2); Platelet Count Result 178 k/mm3 (150-375); Red Blood Count 2.69 M/mm3 (4.6-6.20); White Blood Count 8.9 K/mm3 (4.5-10.0)
[2024-12-06 06:20] LABS: Hepatitis B Surface Antigen Negative (Negative)
[2024-12-06 06:37] LABS: Hepatitis B Surface Anti Res Negative
[2024-12-06] MEDS: IPRATROPIUM 0.5 MG/ALBUTEROL SULFATE 2.5 MG AMPUL.NEB 3 ML INHALATION ×3 (07:37→21:55)
--- NOTE | 2024-12-06 08:04 | PM.IMPN ---
Progress Note: A&P Assessment and Plan (1) Multifocal pneumonia: Code(s): J18.8 - Other pneumonia, unspecified organism Status: Acute (2) Sepsis: Code(s): A41.9 - Sepsis, unspecified organism Status: Acute (3) Sepsis associated hypotension: Code(s): A41.9 - Sepsis, unspecified organism; I95.9 - Hypotension, unspecified Status: Acute Plan Sepsis LLL Pnuemonia HAP, recent hospitalization CT chest reviewed Blood culture Cefepime and Doxycycline MRSA negative UTI complicated Follow urine culture on cefepime ACute hypoxemic resp failur e on 4 liters oxygen continue above care and titrate oxygen Recent acute renal failure creatinine peaking to 7 was down to 3.6 at discharge dialysis was discontinued. Readmission with creatinine of 4.6 and continues to incline. Nephrology consulted added albumin and stop IV fluid cr downtrended however not much urine output. likely needs initiation of renal replacement therapy acute onset ams with ?facial droop: ct head was negative. will get abg, plan mri today. will consult neurology. give aspirin 325 mg rectally for now. ? seizure. no prior history. lactate was nromal. prolactin pending. will monitor. right cephalic vein thrombosis. on dvt proph. this is superficial vein thrombosis. continue conservative mgmt DM2 SSi with accucheks Hypertension: Chronic anemia no signs of bleeding continue to monitor Recent partial small-bowel obstruction/hydrops gallbladder Mildly obstructing left ureteral calculus and right renal stones status post cystoscopy bilateral retrograde left ureteroscopy stone extraction bilateral ureteral stent placement 11/16/2024 and [place] catheter placement. urology consulted. DVT prophylaxis on Sq Heparin Subjective Date/time seen: 12/06/24 08:04 Interval history: last evening patient was having some facial droop reported, had some fixed gaze, not much responsive today. labs reveiwed. ros could not be completed. discussed with nursing staff Review of Systems Review of Systems: ROS unobtainable: Yes unobtainable due to medical condition and unobtainable due to mental status Exam Narrative: GENERAL: Ill-appearing,somnolent, mumbles HEAD: Normocephalic, atraumatic. EYES: Non injected, non icteric. Pin point pupil on the R. Asymmetric pupil 4mm on the left, non reactive. Matted eyes ENT: No epistaxis. Dry mucous membranes NECK: Supple. CHEST: Poor air movement no respiratory distress, coarse breath sounds bilaterlaly HEART: Regular rate and rhythm. . ABDOMEN: Soft, nondistended. No rigidity or guarding SKIN: Dry, no rash. NEURO: somnolent, mumbles Extremities: Swollen upper extremities bilaterally which is slighlty better today Objective Data Vital Signs Vital Signs: Vital Signs - 24 hr 12/05/24 10:00 12/05/24 10:59 12/05/24 11:55 Temperature 98.8 F Pulse Rate 62 69 64 Respiratory Rate 18 24 H Blood Pressure 98/79 L Pulse Oximetry 93 Oxygen Delivery Oxygen Flow Rate 12/05/24 12:00 12/05/24 12:00 12/05/24 12:00 Temperature Pulse Rate 61 Respiratory Rate Blood Pressure Pulse Oximetry 94 95 Oxygen Delivery Nasal Cannula Nasal Cannula Oxygen Flow Rate 4.5 4 12/05/24 14:00 12/05/24 15:41 12/05/24 16:00 Temperature 98.4 F Pulse Rate 58 L 58 L Respiratory Rate 22 H Blood Pressure 148/103 H Pulse Oximetry 96 96 Oxygen Delivery Nasal Cannula Oxygen Flow Rate 4.5 12/05/24 16:00 12/05/24 18:00 12/05/24 18:00 Temperature Pulse Rate 54 L 67 108 H Respiratory Rate Blood Pressure 155/98 H Pulse Oximetry Oxygen Delivery Oxygen Flow Rate 12/05/24 19:54 12/05/24 19:54 12/05/24 20:00 Temperature 99.0 F Pulse Rate 67 68 Respiratory Rate 20 22 H Blood Pressure 129/107 H Pulse Oximetry 94 96 Oxygen Delivery Nasal Cannula Oxygen Flow Rate 5 12/05/24 20:00 12/05/24 20:00 12/05/24 20:04 Temperature Pulse Rate 63 65 Respiratory Rate 20 Blood Pressure Pulse Oximetry 94 Oxygen Delivery High Flow Nasal Cannula Oxygen Flow Rate 5 12/05/24 22:00 12/05/24 22:52 12/05/24 23:37 Temperature 98.8 F Pulse Rate 57 L 58 L Respiratory Rate 22 H Blood Pressure 108/39 L Pulse Oximetry 92 98 Oxygen Delivery High Flow Nasal Cannula Oxygen Flow Rate 7 12/05/24 23:57 12/05/24 23:57 12/06/24 02:00 Temperature Pulse Rate 57 L 64 Respiratory Rate Blood Pressure Pulse Oximetry 98 Oxygen Delivery High Flow Nasal Cannula Oxygen Flow Rate 7 12/06/24 04:00 12/06/24 04:00 12/06/24 04:00 Temperature 99.6 F Pulse Rate 66 68 Respiratory Rate 24 H Blood Pressure 115/36 L Pulse Oximetry 96 98 Oxygen Delivery High Flow Nasal Cannula Oxygen Flow Rate 7 12/06/24 06:00 Temperature Pulse Rate 59 L Respiratory Rate Blood Pressure Pulse Oximetry Oxygen Delivery Oxygen Flow Rate Intake/Output Intake/Output: Intake & Output 12/03/24 12/04/24 12/05/24 12/06/24 23:59 23:59 23:59 23:59 Intake Total 2049 200 1550 100 Output Total 30 175 100 Balance 2049 170 1375 0 Meds/Results Medications: Active Medications Generic Name Dose Route Start Last Admin Trade Name Freq PRN Reason Stop Dose Admin Acetaminophen 650 mg 12/04/24 01:55 Acetaminophen 650 Mg Suppository RECTAL Q6H PRN Mild Pain (1-3) or Fever Acetaminophen 650 mg 12/05/24 08:39 Acetaminophen 325 Mg Tablet PO Q8H PRN Pain, Mild Albuterol 2 puff 12/04/24 14:20 Albuterol Sulfate (*Sp) Aerosol 1 Puff INHALATION Q4HRT PRN Wheezing Albuterol/Ipratropium 3 ml 12/05/24 14:00 12/06/24 07:37 Ipratropium 0.5 Mg/Albuterol Sulfate 2.5 Mg Ampul.Neb 3 Ml INHALATION 3 ml TIDRT BERNARDO Administration Artificial Tears 1 drop 12/05/24 08:48 Artificial Tears Ophth Soln 15 Ml Bottle EACH EYE QID PRN Dry Eye(s) Aspirin 81 mg 12/05/24 09:00 12/05/24 11:10 Aspirin 81 Mg Enteric Tablet PO Not Given DAILY BERNARDO Benzonatate 100 mg 12/05/24 08:39 Benzonatate 100 Mg Capsule PO TID PRN cough Brimonidine Tartrate 1 drop 12/05/24 14:00 12/06/24 05:34 Brimonidine Tartrate 0.2% Op Soln 5 Ml Btl EACH EYE 1 drop Q8HR BERNARDO Administration Brinzolamide 1 drop 12/05/24 14:00 12/06/24 05:33 Brinzolamide 1% Ophth Susp 10 Ml EACH EYE 1 drop Q8HR BERNARDO Administration Carvedilol 3.125 mg 12/05/24 08:00 12/05/24 17:19 Carvedilol 3.125 Mg Tablet PO Not Given BIDWM BERNARDO Dextrose 12.5 gm 12/04/24 00:50 12/05/24 13:05 Dextrose 50% 25 Gm/50 Ml Syringe IV PUSH 12.5 gm PRN PRN Administration Hypoglycemia Protocol Escitalopram Oxalate 10 mg 12/05/24 09:00 12/05/24 10:29 Escitalopram Oxalate 10 Mg Tablet PO Not Given QAM BERNARDO Fluticasone/Umeclidinium/Vilanterol 1 puff 12/05/24 09:00 12/05/24 10:00 Fluticasone/Umeclidin/Vilanter 100-62.5-25 Mcg Ellipta INHALATION 1 puff DAILY BERNARDO Administration Glucose 15 gm 12/04/24 00:50 Glucose Oral Gel 15 Gm Of Glucse In 37.5 Gm Tube PO PRN PRN Hypoglycemia Protocol Heparin Sodium (Porcine) 5,000 units 12/04/24 14:00 12/06/24 05:34 Heparin Sodium 5,000 Units/Ml Vial SUB-Q 5,000 units Q8HR BERNARDO Administration Dextrose 1,000 mls @ 100 mls/hr 12/04/24 00:50 Dextrose 5% 1,000 Ml IVPB PRN PRN Hypoglycemia Protocol Cefepime HCl 1 gm/ Sodium 50 mls @ 100 mls/hr 12/04/24 09:00 12/05/24 22:25 Chloride IVPB Infused Q12H BERNARDO Infusion Doxycycline Hyclate 100 mg/ 100 mls @ 100 mls/hr 12/04/24 16:00 12/06/24 03:51 Sodium Chloride IVPB 100 mls/hr Q12H BERNARDO Administration Albumin Human 100 mls @ 60 mls/hr 12/05/24 12:00 12/06/24 05:32 Albutein IVPB 60 mls/hr Q6HR BERNARDO Administration Vancomycin HCl 1,250 mg in 250 mls @ 166.667 mls/hr 12/06/24 07:00 Vancomycin 1,250 Mg/Ns 250 Ml IVPB 12/06/24 08:29 ONCE ONE Insulin Aspart 2 - 5 units 12/05/24 12:00 12/05/24 17:19 Insulin Aspart (*Bkc) 100 Units/Ml SUB-Q Not Given TIDWM [facility] Protocol Lidocaine 1 patch 12/05/24 09:00 12/05/24 10:50 Lidocaine 5% Patch TOPICAL Not Given DAILY BERNARDO Loperamide HCl 2 mg 12/05/24 08:39 Loperamide Hcl 2 Mg Capsule PO Q6H PRN Diarrhea Mirtazapine 7.5 mg 12/04/24 21:00 12/04/24 21:23 Mirtazapine 7.5 Mg Tablet PO 7.5 mg HS [facility] Administration Miscellaneous Information 0 each 12/04/24 00:01 12/05/24 00:13 Cabergoline Nonform Can Pt Bring From Home? XX 01/03/25 00:00 Not Given CLARIFY [facility] Non-Formulary Medication 1 mg 12/04/24 14:30 Cabergoline PO 01/03/25 14:29 MoFr BERNARDO Oxycodone HCl 5 mg 12/04/24 14:02 12/04/24 21:24 Oxycodone Hcl (*Crx) 5 Mg Tab Ir PO 5 mg Q12HR PRN Administration Pain Rated 7-10 Tamsulosin HCl 0.4 mg 12/05/24 09:00 12/05/24 11:10 Tamsulosin Hcl 0.4 Mg Capsule PO Not Given DAILY [facility] Umeclidinium [place] 1 puff 12/05/24 08:00 12/05/24 12:04 Umeclidinium [place] 62.5 Mcg Ellipta INHALATION Not Given DAILYRT [facility] Vancomycin HCl 1 each 12/03/24 18:47 Vancomycin For Acute Kidney Injury IVPB PRN PRN Vancomycin Protocol Radiology Results: ITS Impressions Chest/Abdomen/Pelvis CT 12/04/24 07:39 IMPRESSION: 1. Left lower lobe pneumonia. 2. Mild to moderate bilateral renal atrophy with bilateral renal stents in expected position and similar pattern of increased density in the bilateral renal collecting systems which could represent either small residual excreted contrast as a recent contrast utilization or stones/stone fragments. Head CT 12/05/24 18:02 IMPRESSION: No acute intracranial process. Results reported telephonically to Kareen Avila RN by Dr. Medrano at 6:06 PM on 12/05/2024. Venous Doppler Study 12/05/24 20:05 IMPRESSION: Right cephalic DVT. No DVT detected in the left upper extremity. Labs Labs: Laboratory Results - last 24 hr 12/03/24 12/05/24 12/05/24 17:52 11:41 14:03 WBC RBC Hgb Hct MCV MCH MCHC RDW Plt Count MPV Immature Gran % (Auto) Neut % (Auto) Lymph % (Auto) [place] % (Auto) Eos % (Auto) Baso % (Auto) Lymph # (Auto) [place] # (Auto) Eos # (Auto) Baso # (Auto) Abs Immat Gran (auto) Absolute Neuts (auto) Absolute Nucleated RBC Nucleated RBC % Sodium Potassium Chloride Carbon Dioxide Anion Gap BUN Creatinine Estim Creat Clear Calc Estimated GFR Glucose POC Capillary Glucose 71 127 H Lactic Acid Calcium Phosphorus Magnesium Total Bilirubin AST ALT Alkaline Phosphatase Total Protein Albumin Free T3 pg/mL 1.5 L Vancomycin Trough Hep Bs Antigen Hep Bs Antibody Hep B Core Total Ab 12/05/24 12/05/24 12/05/24 17:48 21:09 23:19 WBC 8.3 RBC 2.68 L Hgb 7.5 L Hct 25.0 L MCV 93.3 MCH 28.0 MCHC 30.0 L RDW 15.2 H Plt Count 195 MPV 9.4 Immature Gran % (Auto) Neut % (Auto) Lymph % (Auto) [place] % (Auto) Eos % (Auto) Baso % (Auto) Lymph # (Auto) [place] # (Auto) Eos # (Auto) Baso # (Auto) Abs Immat Gran (auto) Absolute Neuts (auto) Absolute Nucleated RBC Nucleated RBC % Sodium 141 Potassium 3.8 Chloride 110 H Carbon Dioxide 21 L Anion Gap 10 BUN 44 H Creatinine 5.92 H Estim Creat Clear Calc 14 Estimated GFR 10 L Glucose 96 POC Capillary Glucose 98 89 Lactic Acid 1.0 Calcium 8.7 Phosphorus 3.8 Magnesium 1.7 Total Bilirubin AST ALT Alkaline Phosphatase Total Protein Albumin 3.1 L Free T3 pg/mL Vancomycin Trough 20.0 Hep Bs Antigen Hep Bs Antibody Hep B Core Total Ab 12/06/24 12/06/24 05:29 05:59 WBC 8.9 RBC 2.69 L Hgb 7.6 L Hct 25.1 L MCV 93.3 MCH 28.3 MCHC 30.3 L RDW 15.2 H Plt Count 178 MPV 9.5 Immature Gran % (Auto) 1.1 H Neut % (Auto) 74.0 H Lymph % (Auto) 9.9 L [place] % (Auto) 10.0 H Eos % (Auto) 4.5 H Baso % (Auto) 0.5 Lymph # (Auto) 0.88 L [place] # (Auto) 0.9 H Eos # (Auto) 0.4 H Baso # (Auto) 0.0 Abs Immat Gran (auto) 0.10 H Absolute Neuts (auto) 6.6 Absolute Nucleated RBC 0.000 Nucleated RBC % 0.0 Sodium 143 Potassium 4.1 Chloride 113 H Carbon Dioxide 19 L Anion Gap 11 BUN 46 H Creatinine 5.72 H Estim Creat Clear Calc 15 Estimated GFR 10 L Glucose 79 POC Capillary Glucose Lactic Acid Calcium 8.5 Phosphorus Magnesium 1.6 Total Bilirubin 0.7 AST 41 ALT 16 Alkaline Phosphatase 137 H Total Protein 5.4 L Albumin 2.9 L Free T3 pg/mL Vancomycin Trough 18.6 Hep Bs Antigen Negative Hep Bs Antibody Negative Hep B Core Total Ab Cancelled
[2024-12-06] MEDS: VANCOMYCIN 1,250 MG/NS 250 ML 1,250 MG/250 ML BAG 166.67 MG IVPB (08:13)
[2024-12-06 09:02] LABS: Cholesterol 60 mg/dL (0-200); HDL Direct 10 mg/dL; Triglycerides 189 mg/dL (<150)
--- NOTE | 2024-12-06 09:24 | PCSTNOTE ---
12/06 Speech therapy to assess for BSE. Spoke with nurse, Derrick. Patient still not appropriate for BSE at this time. Continue to hold at this time.
[2024-12-06] MEDS: ASPIRIN 300 MG SUPPOSITORY RECTAL (09:25)
[2024-12-06 09:50] LABS: Alveolar/Arterial O2 Gradient 177.9 mmHg; Fractional Inspired Oxygen 44 %; HCO3 ABG 22.4 mEq/l (22.0-26.0); Oxygen Content ABG 10.6 %vol (16.0-22.0); Oxygen Saturation ABG 95.5 % (95.0-100.0); PCO2 ABG 44.9 mmHg (35.0-45.0); PO2 ABG 84.6 mmHg (80.0-100.0); PO2 FiO2 Ratio Arterial Blood 1.92 %
[2024-12-06 10:18] LABS: Liters per Minute 6.0 LPM; Modified Allen's Test Pass; Site Drawn RIGHT RADIAL
[2024-12-06 10:33] LABS: Hemoglobin A1C 5.0 % (<5.7)
--- NOTE | 2024-12-06 12:33 | WPDURCON ---
Assessment and Plan Assessment and plan (1) Acute kidney injury superimposed on CKD: Code(s): N17.9 - Acute kidney failure, unspecified; N18.9 - Chronic kidney disease, unspecified Status: Acute Plan 69y old male with BRYCE on CKD. On previous admission, mildly obstructing left ureteral calculus and right renal stones status post cystoscopy bilateral retrograde left ureteroscopy stone extraction bilateral ureteral stent placement 11/16/2024 and [place] catheter placement -CT AP reveals . Mild to moderate bilateral renal atrophy with bilateral renal stents in expected position and similar pattern of increased density in the bilateral renal collecting systems which could represent either small residual excreted contrast as a recent contrast utilization or stones/stone fragments. No hydro -no urological surgical intervention planned at this time. -maintain l[place] catheter -cr 5.72 today. Neph on board. -wbc wnl -urine culture pending. Culture driven antibiotic therapy per primary service. -we will be peripheral. contact our group for any changes or concerns. Urology Consult Note HPI Date Seen: 12/06/24 Requesting Physician: Marine Dumont MD Primary Care Provider: Brandon Santiago Consult Narrative Narrative: Brent Higginbotham is a 69 year old male presents with worsening mental status. He is a full code. Recent admission with acute renal failure creatinine peaking to 7 was down to 3.6 at discharge dialysis was discontinued. Readmission with creatinine of 4.6 and continues to trend up. it was 5.72 today. Neph on board. Mildly obstructing left ureteral calculus and right renal stones status post cystoscopy bilateral retrograde left ureteroscopy stone extraction bilateral ureteral stent placement 11/16/2024 and [place] catheter placement. patient is snoring during bedside eval. He will not respond to me. Review of Systems Review of Systems: ROS unobtainable: Yes unobtainable due to medical condition [facility] Past Medical History Medical History Chronic right arterial ischemic stroke, MCA (middle cerebral artery) Coronary artery disease Benign prostatic hyperplasia Tobacco abuse Chronic obstructive pulmonary disease Obstructive sleep apnea Intolerant of CPAP Hypertension Type 2 diabetes mellitus Cerebrovascular accident Surgical History Surgical History (Updated 11/20/24 @ 14:07 by Anam Daniel DO) S/P total colectomy Laparoscopic subtotal colectomy with ileorectal anastomosis 12/25/[address] Uche Laurent at [facility] History of coronary artery stent placement History of cardiac catheterization Family History Family History Other Family history non-contributory Social History Social History (Updated 12/03/24 @ 17:37 by Almaz Boyle MD) Social History: Surrogate medical decision maker: Clarita Hobbs, mother. Code status: POLST signed 11/26/21 indicates DNR (Do not resusictate) with comfort-focused treatment Smoking packs per day: 1 Smoking cigarettes per day: 20.0 Years smoked: 50 Smoking pack-years: 50.00 Smoking status: Former smoker Tobacco type: cigarettes Alcohol intake: former Substance use: never Do You Feel Safe in your Home?: Yes Lack of Transportation: No Lack of Food: Never True Current Housing: I Have Housing Concerned About Future Housing: No Difficulty Paying Gas/Electric Bills: No Difficulty Paying for Meds: No Currently Unemployed: No Education: High School Diploma/GED Difficulty w/ Childcare or Family Care: No Additional living arrangements comments: Resident at [facility]. 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 Spiritual care concerns: No Meds Home Medications and Allergies Home Medications ?Medication ?Instructions ?Recorded ?Confirmed ?Type acetaminophen 325 mg tablet 650 mg PO Q8H PRN Pain, Mild 11/07/23 12/04/24 History albuterol sulfate 90 mcg/actuation 2 puff inhalation Q4H PRN Wheezing 11/07/23 12/04/24 History aerosol inhaler aspirin 81 mg tablet,delayed 81 mg PO DAILY 11/07/23 12/04/24 History release cabergoline 0.5 mg tablet 1 mg PO 2XW 11/07/23 12/04/24 History carboxymethylcellulose sodium 0.5 1 drp EACH EYE QID PRN Dry Eyes 11/07/23 12/04/24 History % eye drops in a dropperette (Refresh Plus) carvedilol 3.125 mg tablet 3.125 mg PO BID 11/07/23 12/04/24 History dextromethorphan-guaifenesin 10 10 ml PO Q4-6H PRN Cough 11/07/23 12/04/24 History mg-100 mg/5 mL oral syrup escitalopram oxalate 20 mg tablet 10 mg PO QAM 11/07/23 12/04/24 History gabapentin 100 mg capsule 100 mg PO TID 11/07/23 12/04/24 History glipizide 5 mg tablet 5 mg PO QAM 11/07/23 12/04/24 History loperamide 2 mg capsule 2 mg PO Q6H PRN Diarrhea 11/07/23 12/04/24 History (Anti-Diarrheal (loperamide)) melatonin 5 mg tablet 5 mg PO HS 11/07/23 12/04/24 History ondansetron 4 mg disintegrating 4 mg PO Q4H PRN Nausea And Vomiting 11/07/23 12/04/24 History tablet rosuvastatin 40 mg tablet 40 mg PO QHS 11/07/23 12/04/24 History sennosides 8.6 mg tablet (Senokot) 8.6 mg PO PRN PRN Constipation 11/07/23 12/04/24 History tiotropium bromide 2.5 2 puff inhalation QAM 11/07/23 12/04/24 History mcg/actuation mist for inhalation (Spiriva Respimat) benzonatate 100 mg capsule 100 mg PO TID PRN cough 05/16/24 12/04/24 History brinzolamide 1 %-brimonidine 0.2 % 1 drp EACH EYE TID 05/18/24 12/04/24 History eye drops,suspension (Simbrinza) budesonide 160 mcg-glycopyr 9 2 inh inhalation BID 05/18/24 12/04/24 History mcg-formot 4.8 mcg/actuation HFA inhaler (Breztri Aerosphere) oxycodone 5 mg tablet 5 mg PO Q12H pain 05/18/24 12/04/24 History insulin aspart U-100 100 unit/mL 1 sliding scale dose subcut 05/20/24 12/04/24 Rx (3 mL) subcutaneous pen (Novolog USEASDIRECTD #15 mL FlexPen U-100 Insulin aspart) insulin glargine 100 unit/mL 15 unit (0.15 mL) subcut HS 15 05/20/24 12/04/24 Rx subcutaneous solution (Lantus days #2.25 mL U-100 Insulin) cholestyramine 4 gram oral powder 4 g PO TID 11/13/24 12/04/24 History lidocaine 5 % topical patch 1 patch topical DAILY back pain 11/13/24 12/04/24 History psyllium husk 0.4 gram capsule 0.4 g PO DAILY PRN constipation 11/13/24 12/04/24 History (Fiber (psyllium husk)) duloxetine 20 mg capsule,delayed 20 mg PO DAILY 12/04/24 12/04/24 History release sprinkle (Drizalma Sprinkle) ipratropium 0.5 mg-albuterol 3 mg 3 ml inhalation TID 12/04/24 12/04/24 History (2.5 mg base)/3 mL nebulization soln memantine 5 mg tablet (Namenda) 5 mg PO DAILY 12/04/24 12/04/24 History mirtazapine 7.5 mg tablet 7.5 mg PO HS 12/04/24 12/04/24 History tamsulosin 0.4 mg capsule (Flomax) 0.4 mg PO DAILY 12/04/24 12/04/24 History Allergies Allergy/AdvReac Type Severity Reaction Status Date / Time hydralazine AdvReac Vomiting Verified 12/04/24 01:33 lisinopril AdvReac Rash Verified 12/04/24 01:33 metformin AdvReac Diarrhea Verified 12/04/24 01:33 pioglitazone AdvReac Nausea Verified 12/04/24 01:33 simvastatin AdvReac Rash Verified 12/04/24 01:33 Vital Signs Vital Signs - 24 hr 12/05/24 14:00 12/05/24 15:41 12/05/24 16:00 Temperature 98.4 F Pulse Rate 58 L 58 L Respiratory Rate 22 H Blood Pressure 148/103 H Pulse Oximetry 96 96 Oxygen Delivery Nasal Cannula Oxygen Flow Rate 4.5 Fraction of Inspired Oxygen 12/05/24 16:00 12/05/24 18:00 12/05/24 18:00 Temperature Pulse Rate 54 L 67 108 H Respiratory Rate Blood Pressure 155/98 H Pulse Oximetry Oxygen Delivery Oxygen Flow Rate Fraction of Inspired Oxygen 12/05/24 19:54 12/05/24 19:54 12/05/24 20:00 Temperature 99.0 F Pulse Rate 67 68 Respiratory Rate 20 22 H Blood Pressure 129/107 H Pulse Oximetry 94 96 Oxygen Delivery Nasal Cannula Oxygen Flow Rate 5 Fraction of Inspired Oxygen 12/05/24 20:00 12/05/24 20:00 12/05/24 20:04 Temperature Pulse Rate 63 65 Respiratory Rate 20 Blood Pressure Pulse Oximetry 94 Oxygen Delivery High Flow Nasal Cannula Oxygen Flow Rate 5 Fraction of Inspired Oxygen 12/05/24 22:00 12/05/24 22:52 12/05/24 23:37 Temperature 98.8 F Pulse Rate 57 L 58 L Respiratory Rate 22 H Blood Pressure 108/39 L Pulse Oximetry 92 98 Oxygen Delivery High Flow Nasal Cannula Oxygen Flow Rate 7 Fraction of Inspired Oxygen 12/05/24 23:57 12/05/24 23:57 12/06/24 02:00 Temperature Pulse Rate 57 L 64 Respiratory Rate Blood Pressure Pulse Oximetry 98 Oxygen Delivery High Flow Nasal Cannula Oxygen Flow Rate 7 Fraction of Inspired Oxygen 12/06/24 04:00 12/06/24 04:00 12/06/24 04:00 Temperature 99.6 F Pulse Rate 66 68 Respiratory Rate 24 H Blood Pressure 115/36 L Pulse Oximetry 96 98 Oxygen Delivery High Flow Nasal Cannula Oxygen Flow Rate 7 Fraction of Inspired Oxygen 12/06/24 06:00 12/06/24 07:38 12/06/24 07:38 Temperature Pulse Rate 59 L 65 Respiratory Rate 20 Blood Pressure Pulse Oximetry 93 Oxygen Delivery Nasal Cannula Oxygen Flow Rate 5 Fraction of Inspired Oxygen 40 12/06/24 07:45 12/06/24 07:50 12/06/24 08:00 Temperature 99.4 F Pulse Rate 67 62 Respiratory Rate 20 16 Blood Pressure 108/45 L Pulse Oximetry 84 L 100 Oxygen Delivery Nasal Cannula Oxygen Flow Rate 6 Fraction of Inspired Oxygen 40 12/06/24 08:00 12/06/24 10:00 12/06/24 11:40 Temperature Pulse Rate 70 61 Respiratory Rate Blood Pressure Pulse Oximetry 6 L Oxygen Delivery Nasal Cannula Oxygen Flow Rate 6 Fraction of Inspired Oxygen 40 12/06/24 11:46 Temperature 98.2 F Pulse Rate 66 Respiratory Rate 12 Blood Pressure 106/34 L Pulse Oximetry 100 Oxygen Delivery Oxygen Flow Rate Fraction of Inspired Oxygen Exam Narrative: laying in bed with head back and snoring. He will not respond to me. He is slightly jaundice. HENMT: Mouth: Yes dry mucous membranes Resp: Other: snoring Urinary Catheter: Urinary Catheter: urine cloudy Skin: General skin exam: No normal color (slight jaundice) Neuro: Other: wont respond to me Results Labs 12/06/24 05:59 12/06/24 05:29 Labs: Short CBC 12/05/24 12/06/24 Range/Units 21:09 05:59 WBC 8.3 8.9 (4.5-10.0) K/mm3 Hgb 7.5 L 7.6 L (14.0-18.0) g/dL Hct 25.0 L 25.1 L (42.0-52.0) % Plt Count 195 178 (150-375) k/mm3 BMP 12/05/24 12/06/24 21:09 05:29 Sodium 141 143 Potassium 3.8 4.1 Chloride 110 H 113 H Carbon Dioxide 21 L 19 L BUN 44 H 46 H Creatinine 5.92 H 5.72 H Glucose 96 79 Calcium 8.7 8.5 Liver Function 12/05/24 12/06/24 Range/Units 21:09 05:29 Total Bilirubin 0.7 (0.2-1.3) mg/dL AST 41 (17-59) U/L ALT 16 (6-50) U/L Alkaline Phosphatase 137 H (38-126) U/L Albumin 3.1 L 2.9 L (3.5-5.1) g/dL
--- NOTE | 2024-12-06 13:52 | P.PNNP_ITS ---
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 * discharge creatinine was 3.66mg/dl (on 11/24/24) * admission creatinine 4.6mg/dl * suspect multifactorial etiology: * possible prerenal factors * insensible losses (due to high fevers) * hypotension/hemodynamic instability * infection/early sepsis (pneumonia + UTI) * other(?) * evaluation to date noted: * CT of C/A/P noted - mild to moderate bilateral renal atrophy * urine electrolytes (by FeUrea) prerenal * urine eosinophils negative * UA suggestive of infection * proteinuria noted * CPK elevated but not enough to affect kidney function * remains at risk for HIDE SALTER/dialysis once again... * holding further IVFs -- on IV albumin for volume expansion * follow trend of repeat labs and UOP (2) Hypotension: Qualifiers: Hypotension type: hypotension due to hypovolemia Qualified Code(s): E 86.1 - Hypovolemia Code(s): I95.9 - Hypotension, unspecified Status: Acute Assessment and Plan: * clinically better * noted in ER/upon presentation * early sepsis(?) on top of possible volume depletion(?) * improvement noted following IVF bolus * holding BP medications * IVFs on hold -- using IV albumin for volume expansion * follow trend of hemodynamics (3) Acute hypoxic respiratory failure: Code(s): J96.01 - Acute respiratory failure with hypoxia Status: Acute Assessment and Plan: * presumably due to pneumonia * requiring supplemental oxygen (up to 5L NC) * follow respiratory status * monitor for fluid overload (4) Altered mental status: Code(s): R41.82 - Altered mental status, unspecified Status: Acute Assessment and Plan: * waxing and waning * presumably due to infection +/- BRYCE * head CT negative in ER * repeat CT of head (12/05) and MRI of brain negative * follow mentation (5) Pneumonia: Code(s): J18.9 - Pneumonia, unspecified organism Status: Acute Assessment and Plan: * as noted by imaging on admission * follow cultures * follow respiratory status * on antibiotics (6) Urinary tract infection: Code(s): N39.0 - Urinary tract infection, site not specified Status: Acute Assessment and Plan: * suggested by admission UA * however, has chronic linton catheter * this was exchanged in the ER * follow culture data * on antibiotics (7) Anemia: Code(s): D64.9 - Anemia, unspecified Status: Acute Assessment and Plan: * due to BRYCE/ARF, CKD(?), and acute illness * follow trend of H/H * may need to consider KARIS (8) Type 2 diabetes mellitus: Qualifiers: Diabetes mellitus group home insulin use: with group home use Diabetes mellitus complication status: with hypoglycemia Diabetes mellitus complication detail: without coma Qualified Code(s): E11.649 - Type 2 diabetes mellitus with hypoglycemia without coma; 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 De La Cruz -- creatinine slightly better with mild improvement in urine output; however, the concern remains his persistent encephalopathy with the concern uremia is playing a role (although his BUN is only 46); may need to consider trial of dialysis to assess if this will improve his mental status... Will continue to follow. L Subjective Date/time seen: 12/06/24 13:52 Interval history: Follow-up for acute kidney injury/acute renal failure (on chronic kidney disease?) Events noted overnight -- rapid response due to concerns for possible stroke due to some facial droop and reported fixed gaze; STAT labs and CT of head without any significant changes or findings; MRI of brain done earlier today was negative as well; mentation seems a bit worse today in comparison to yesterday at the time of my visit; renal function/creatinine a bit better today and noted some mild increase in urine output as well. Exam 2 Narrative: General: large but ill-appearing male in NAD Heart: normal S1 and S2; no rub Lungs: clear anteriorly Abdomen: obese with positive bowel sounds Extremities: no cyanosis or clubbing; ++ UE edema Skin: warm and intact Objective Data Vital Signs Vital Signs: Vital Signs Temp Pulse Resp BP Pulse Ox O2 Del Method O2 Flow Rate 12/06/24 13:46 61 12/06/24 12:00 62 12/06/24 11:46 98.2 F 66 12 106/34 L 100 12/06/24 11:40 6 L Nasal Cannula 6 12/06/24 10:00 61 12/06/24 08:00 70 12/06/24 08:00 100 Nasal Cannula 6 12/06/24 07:50 99.4 F 62 16 108/45 L 84 L 12/06/24 07:45 67 20 12/06/24 07:38 93 Nasal Cannula 5 12/06/24 07:38 65 20 12/06/24 06:00 59 L 12/06/24 04:00 68 12/06/24 04:00 99.6 F 66 24 H 115/36 L 98 12/06/24 04:00 96 High Flow Nasal Cannula 7 12/06/24 02:00 64 12/05/24 23:57 57 L 12/05/24 23:57 98 High Flow Nasal Cannula 7 12/05/24 23:37 98.8 F 58 L 22 H 108/39 L 98 12/05/24 22:52 92 High Flow Nasal Cannula 7 Intake/Output Intake/Output: Intake & Output 12/03/24 12/04/24 12/05/24 12/06/24 23:59 23:59 23:59 23:59 Intake Total 2049 200 1550 650 Output Total 30 175 275 Balance 2049 170 1375 375 Meds/Results Medications: Active Medications Generic Name Dose Route Start Last Admin Trade Name Freq PRN Reason Stop Dose Admin Acetaminophen 650 mg 12/04/24 01:55 Acetaminophen 650 Mg Suppository RECTAL Q6H PRN Mild Pain (1-3) or Fever Acetaminophen 650 mg 12/05/24 08:39 Acetaminophen 325 Mg Tablet PO Q8H PRN Pain, Mild Albuterol 2 puff 12/04/24 14:20 Albuterol Sulfate (*Sp) Aerosol 1 Puff INHALATION Q4HRT PRN Wheezing Albuterol/Ipratropium 3 ml 12/05/24 14:00 12/06/24 21:55 Ipratropium 0.5 Mg/Albuterol Sulfate 2.5 Mg Ampul.Neb 3 Ml INHALATION 3 ml TIDRT [facility]O Administration Artificial Tears 1 drop 12/05/24 08:48 Artificial Tears Ophth Soln 15 Ml Bottle EACH EYE QID PRN Dry Eye(s) Aspirin 300 mg 12/07/24 09:00 Aspirin 300 Mg Suppository RECTAL DAILY BERNARDO Benzonatate 100 mg 12/05/24 08:39 Benzonatate 100 Mg Capsule PO TID PRN cough Brimonidine Tartrate 1 drop 12/05/24 14:00 12/06/24 21:46 Brimonidine Tartrate 0.2% Op Soln 5 Ml Btl EACH EYE 1 drop Q8HR [facility]O Administration Brinzolamide 1 drop 12/05/24 14:00 12/06/24 21:46 Brinzolamide 1% Ophth Susp 10 Ml EACH EYE 1 drop Q8HR [facility] Administration Carvedilol 3.125 mg 12/05/24 08:00 12/06/24 15:22 Carvedilol 3.125 Mg Tablet PO Not Given BIDWM [facility] Dextrose 12.5 gm 12/04/24 00:50 12/05/24 13:05 Dextrose 50% 25 Gm/50 Ml Syringe IV PUSH 12.5 gm PRN PRN Administration Hypoglycemia Protocol Escitalopram Oxalate 10 mg 12/05/24 09:00 12/05/24 10:29 Escitalopram Oxalate 10 Mg Tablet PO Not Given QAM B[facility]ARDO Fluticasone/Umeclidinium/Vilanterol 1 puff 12/05/24 09:00 12/06/24 13:14 Fluticasone/Umeclidin/Vilanter 100-62.5-25 Mcg Ellipta INHALATION Not Given DAILY B[facility]O Glucose 15 gm 12/04/24 00:50 Glucose Oral Gel 15 Gm Of Glucse In 37.5 Gm Tube PO PRN PRN Hypoglycemia Protocol Heparin Sodium (Porcine) 5,000 units 12/04/24 14:00 12/06/24 21:46 Heparin Sodium 5,000 Units/Ml Vial SUB-Q 5,000 units Q8HR [facility] Administration Dextrose 1,000 mls @ 100 mls/hr 12/04/24 00:50 Dextrose 5% 1,000 Ml IVPB PRN PRN Hypoglycemia Protocol Doxycycline Hyclate 100 mg/ 100 mls @ 100 mls/hr 12/04/24 16:00 12/06/24 17:50 Sodium Chloride IVPB Infused Q12H [facility] Infusion Albumin Human 100 mls @ 60 mls/hr 12/05/24 12:00 12/06/24 20:09 Albutein IVPB Infused Q6HR [facility] Infusion Piperacillin Sod/Tazobactam 50 mls @ 100 mls/hr 12/06/24 13:00 12/06/24 21:46 Sod 2.25 gm/ Sodium Chloride IVPB 100 mls/hr Q8HR [facility] Administration Insulin Aspart 2 - 5 units 12/05/24 12:00 12/06/24 15:22 Insulin Aspart (*Bkc) 100 Units/Ml SUB-Q Not Given TIDWM [facility] Protocol Lidocaine 1 patch 12/05/24 09:00 12/06/24 08:25 Lidocaine 5% Patch TOPICAL Not Given DAILY [facility] Loperamide HCl 2 mg 12/05/24 08:39 Loperamide Hcl 2 Mg Capsule PO Q6H PRN Diarrhea Mirtazapine 7.5 mg 12/04/24 21:00 12/04/24 21:23 Mirtazapine 7.5 Mg Tablet PO 7.5 mg HS [facility] Administration Miscellaneous Information 0 each 12/04/24 00:01 12/05/24 00:13 Cabergoline Nonform Can Pt Bring From Home? XX 01/03/25 00:00 Not Given CLARIFY [facility] Non-Formulary Medication 1 mg 12/04/24 14:30 Cabergoline PO 01/03/25 14:29 MoFr [facility] Oxycodone HCl 5 mg 12/04/24 14:02 12/04/24 21:24 Oxycodone Hcl (*Crx) 5 Mg Tab Ir PO 5 mg Q12HR PRN Administration Pain Rated 7-10 Tamsulosin HCl 0.4 mg 12/05/24 09:00 12/06/24 08:05 Tamsulosin Hcl 0.4 Mg Capsule PO Not Given DAILY [facility] Umeclidinium [place] 1 puff 12/05/24 08:00 12/05/24 12:04 Umeclidinium [place] 62.5 Mcg Ellipta INHALATION Not [facility] Radiology Results: ITS Impressions Chest/Abdomen/Pelvis CT 12/04/24 07:39 IMPRESSION: 1. Left lower lobe pneumonia. 2. Mild to moderate bilateral renal atrophy with bilateral renal stents in expected position and similar pattern of increased density in the bilateral renal collecting systems which could represent either small residual excreted contrast as a recent contrast utilization or stones/stone fragments. Head CT 12/05/24 18:02 IMPRESSION: No acute intracranial process. Results reported telephonically to Kareen Avila RN by Dr. Medrano at 6:06 PM on 12/05/2024. Venous Doppler Study 12/05/24 20:05 IMPRESSION: Right cephalic DVT. No DVT detected in the left upper extremity. Chest X-Ray 12/06/24 08:22 Impression: 1: Bilateral perihilar and basilar infiltrates which may represent mild edema, pneumonia and/or atelectasis. No significant change from 12/05/2024. Brain MRI 12/06/24 12:55 IMPRESSION: 1. No significant change in chronic infarcts, the largest involving the plantar to the right middle cerebral and portions of the anterior cerebral artery vascular distribution. No acute intracranial process. 2. Unchanged significant decrease in caliber of the flow void at the right internal carotid artery which could be related to atherosclerosis and stenosis or decreased perfusion requirement secondary to the extensive infarction in the right cerebral hemisphere. Labs Labs: Laboratory Tests 12/06/24 05:59 12/06/24 05:29 Calcium 8.5 Magnesium 1.6 Total Bilirubin 0.7 AST 41 ALT 16 Alkaline Phosphatase 137 H Total Protein 5.4 L Albumin 2.9 L Microbiology 12/03/24 17:52 Blood Blood Culture - Preliminary 12/04/24 04:34 Blood Blood Culture - Preliminary
--- NOTE | 2024-12-06 14:13 | WNDPHOTO ---
PHOTO ONLY - See Nursing Notes and/ or assessments for documentation.
[2024-12-06] MEDS: PIPERACILLIN/TAZOBACTAM SOD 2.25 GM in SODIUM CHLORIDE 0.9% IV 50 ML 100 ML IVPB ×2 (14:45→21:46)
[2024-12-07] VITALS (25 sets, daily range): BP systolic 95–125; BP diastolic 32–63; PULSE 57–74; RESP 12–24; TEMP 36.6–36.9; O2SAT 91–100; BMI 32.7
[2024-12-07] MEDS: DOXYCYCLINE IV 100 MG in SODIUM CHLORIDE 0.9% IV 100 ML IVPB ×2 (03:14→16:25)
[2024-12-07 04:35] LABS: MRSA (PCR) NOT DETECTED (NOT DETECTE)
[2024-12-07] MEDS: PIPERACILLIN/TAZOBACTAM SOD 2.25 GM in SODIUM CHLORIDE 0.9% IV 50 ML 100 ML IVPB ×3 (05:03→22:07)
[2024-12-07] MEDS: BRINZOLAMIDE 1% OPHTH SUSP 10 ML 1 DROP EACH EYE ×2 (05:06→22:07)
[2024-12-07] MEDS: BRIMONIDINE TARTRATE 0.2% OP SOLN 5 ML BTL 1 DROP EACH EYE ×2 (05:06→22:07)
[2024-12-07] MEDS: ALBUMIN HUMAN 25% 25 GM/100 ML 100 ML IVPB ×4 (05:34→23:57)
[2024-12-07 06:05] LABS: Hematocrit 25.1 % (42.0-52.0); Hemoglobin 7.1 g/dL (14.0-18.0); Immature Granulocyte Percent A 1.2 % (0-0.5); Immature Platelet Fraction Pct 0.7 % (0.9-11.2); Lymphocytes Absolute Auto 1.07 K/mm3 (0.9-3.2); Mean Corpuscular HGB Conc 28.3 g/dl (32-36); Mean Corpuscular Hemoglobin 28.2 pg (26-34); Mean Corpuscular Volume 99.6 fl (80-100); Nucleated Red Blood Cells Absolute Auto 0.000 K/mm3 (0.0-0.012); Nucleated Red Blood Cells Perc 0.0 % (0.0-0.2); Platelet Count Result 150 k/mm3 (150-375); Red Blood Count 2.52 M/mm3 (4.6-6.20); White Blood Count 11.8 K/mm3 (4.5-10.0)
[2024-12-07] MEDS: IPRATROPIUM 0.5 MG/ALBUTEROL SULFATE 2.5 MG AMPUL.NEB 3 ML INHALATION ×2 (06:10→21:06)
[2024-12-07 06:25] LABS: Alanine Aminotransferase 13 U/L (6-50); Albumin Level 3.3 g/dL (3.5-5.1); Alkaline Phosphatase 137 U/L (38-126); Anion Gap 10 mmol/L (4-12); Aspartate Amino Transferase 27 U/L (17-59); Bilirubin,Total 0.8 mg/dL (0.2-1.3); Blood Urea Nitrogen 49 mg/dL (9-20); Calcium 8.7 mg/dL (8.4-10.2); Carbon Dioxide 18 mmol/L (22-30); Chloride 110 mmol/L (98-107); Estimated CRCL calculation 14 ml/min; Estimated Glomerular Filt Rate 10; Glucose 90 mg/dL (65-110); INR 1.4; Partial Thromboplastin Time 35.0 Seconds (22.3-36.8); Potassium 3.8 mmol/L (3.4-5.0); Prothrombin Time 16.9 Seconds (11.1-14.7); Sodium 138 mmol/L (137-145); Total Protein 5.8 g/dL (6.3-8.2)
[2024-12-07 06:41] LABS: Burr Cells 1+; Schistocytes None Seen
--- NOTE | 2024-12-07 07:56 | PCRCNOTE ---
DPI NOT GIVEN, PT. NOT ALERT AND UNABLE TO TAKE AT THIS TIME.
[2024-12-07] MEDS: ASPIRIN 300 MG SUPPOSITORY RECTAL (09:40)
--- NOTE | 2024-12-07 13:02 | P.PNNP_ITS ---
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 * discharge creatinine was 3.66mg/dl (on 11/24/24) * admission creatinine 4.6mg/dl * suspect multifactorial etiology: * possible prerenal factors * insensible losses (due to high fevers) * hypotension/hemodynamic instability * infection/early sepsis (pneumonia + UTI) * other(?) * evaluation to date noted: * CT of C/A/P noted - mild to moderate bilateral renal atrophy * urine electrolytes (by FeUrea) prerenal * urine eosinophils negative * UA suggestive of infection * proteinuria noted * CPK elevated but not enough to affect kidney function * no critical electrolytes, but he has a mild acidosis, anemia, and encephalopathy * however, given the possible concern that AMS maybe secondary to BRYCE, will proceed with dialysis * Surgery consulted to place HD catheter (temporary versus tunneled -- ok with tunneled since cultures negative) * proceed with dialysis today or tomorrow depending on timing of HD catheter placement * holding further IVFs -- on IV albumin for volume expansion * follow trend of repeat labs and UOP for potential renal recovery (2) Hypotension: Qualifiers: Hypotension type: hypotension due to hypovolemia Qualified Code(s): E 86.1 - Hypovolemia Code(s): I95.9 - Hypotension, unspecified Status: Acute Assessment and Plan: * clinically better * noted in ER/upon presentation * early sepsis(?) on top of possible volume depletion(?) * improvement noted following IVF bolus * holding BP medications * IVFs on hold -- using IV albumin for volume expansion * follow trend of hemodynamics (3) Acute hypoxic respiratory failure: Code(s): J96.01 - Acute respiratory failure with hypoxia Status: Acute Assessment and Plan: * presumably due to pneumonia * requiring supplemental oxygen * follow respiratory status * monitor for fluid overload (4) Altered mental status: Code(s): R41.82 - Altered mental status, unspecified Status: Acute Assessment and Plan: * waxing and waning * presumably due to infection +/- BRYCE * head CT negative in ER * repeat CT of head (12/05) and MRI of brain negative * recent LP on last admission with CSF results noted * follow mentation (5) Pneumonia: Code(s): J18.9 - Pneumonia, unspecified organism Status: Acute Assessment and Plan: * as noted by imaging on admission * follow cultures * follow respiratory status * on antibiotics (6) Urinary tract infection: Code(s): N39.0 - Urinary tract infection, site not specified Status: Acute Assessment and Plan: * suggested by admission UA * however, has chronic linton catheter * this was exchanged in the ER * follow culture data - negative to date * on antibiotics (7) Anemia: Code(s): D64.9 - Anemia, unspecified Status: Acute Assessment and Plan: * due to BRYCE/ARF, CKD(?), and acute illness * dose with Epogen with HD * follow trend of H/H (8) Type 2 diabetes mellitus: Qualifiers: Diabetes mellitus complication detail: without coma Diabetes mellitus complication status: with hypoglycemia Diabetes mellitus long term care phlebotomist insulin use: with usp use Qualified Code(s): E11.649 - Type 2 diabetes mellitus with hypoglycemia without coma; 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 L Subjective Date/time seen: 12/07/24 13:02 Interval history: Follow-up for acute kidney injury/acute renal failure (on chronic kidney disease?) No real significant change since last seen -- renal function/creatinine continues to worsen in association with diminished urine output; mentation unchanged as well -- not very responsive and mumbles at various times; no other issues/events overnight or earlier this morning; Surgery consulted for dialysis catheter placement. Exam 2 Narrative: General: large but ill-appearing male in NAD Heart: normal S1 and S2; no rub Lungs: clear anteriorly Abdomen: obese with positive bowel sounds Extremities: no cyanosis or clubbing; ++ UE edema Skin: no rash Objective Data Vital Signs Vital Signs: Vital Signs Temp Pulse Resp BP Pulse Ox O2 Del Method O2 Flow Rate 07/31/25 12:58 98.5 F 62 16 117/52 L 96 12/07/24 12:00 57 L 12/07/24 12:00 60 24 H 98 High Flow Nasal Cannula 3 12/07/24 12:00 98.1 F 60 24 H 111/52 L 98 12/07/24 10:00 62 12/07/24 08:00 57 L 12/07/24 08:00 63 18 95 High Flow Nasal Cannula 3 12/07/24 08:00 98.2 F 63 18 125/48 L 95 12/07/24 06:20 63 18 97 High Flow Nasal Cannula 3 12/07/24 06:18 62 18 12/07/24 06:10 63 18 12/07/24 06:00 61 12/07/24 04:00 60 12/07/24 03:28 60 95 High Flow Nasal Cannula 3 12/07/24 03:13 98.4 F 70 22 H 122/45 L 95 12/07/24 02:00 74 12/07/24 00:52 94 High Flow Nasal Cannula 3 12/06/24 23:35 98.2 F 63 23 H 117/35 L 96 12/06/24 23:29 54 L 96 High Flow Nasal Cannula 4 12/06/24 22:20 62 16 95 High Flow Nasal Cannula 4 12/06/24 22:15 63 16 12/06/24 22:05 62 16 12/06/24 22:00 62 12/06/24 20:02 97.7 F 69 21 H 124/40 L 98 12/06/24 20:00 75 12/06/24 20:00 60 93 Nasal Cannula 5 12/06/24 18:00 60 Intake/Output Intake/Output: Intake & Output 12/04/24 12/05/24 12/06/24 12/07/24 23:59 23:59 23:59 23:59 Intake Total 200 1550 700 400 Output Total 30 175 275 50 Balance 170 1375 425 350 Meds/Results Medications: Active Medications Generic Name Dose Route Start Last Admin Trade Name Freq PRN Reason Stop Dose Admin Acetaminophen 650 mg 12/04/24 01:55 Acetaminophen 650 Mg Suppository RECTAL Q6H PRN Mild Pain (1-3) or Fever Acetaminophen 650 mg 12/05/24 08:39 Acetaminophen 325 Mg Tablet PO Q8H PRN Pain, Mild Albuterol 2 puff 12/04/24 14:20 Albuterol Sulfate (*Sp) Aerosol 1 Puff INHALATION Q4HRT PRN Wheezing Albuterol/Ipratropium 3 ml 12/05/24 14:00 12/07/24 14:48 Ipratropium 0.5 Mg/Albuterol Sulfate 2.5 Mg Ampul.Neb 3 Ml INHALATION Not Given TIDRT [facility]ARDO Artificial Tears 1 drop 12/05/24 08:48 Artificial Tears Ophth Soln 15 Ml Bottle EACH EYE QID PRN Dry Eye(s) Aspirin 300 mg 12/07/24 09:00 12/07/24 09:40 Aspirin 300 Mg Suppository RECTAL 300 mg DAILY [facility]ARDO Administration Benzonatate 100 mg 12/05/24 08:39 Benzonatate 100 Mg Capsule PO TID PRN cough Brimonidine Tartrate 1 drop 12/05/24 14:00 12/07/24 14:21 Brimonidine Tartrate 0.2% Op Soln 5 Ml Btl EACH EYE Not Given Q8HR [facility]O Brinzolamide 1 drop 12/05/24 14:00 12/07/24 14:21 Brinzolamide 1% Ophth Susp 10 Ml EACH EYE Not Given Q8HR [facility] Carvedilol 3.125 mg 12/05/24 08:00 12/07/24 09:01 Carvedilol 3.125 Mg Tablet PO Not Given BIDWM [facility] Dextrose 12.5 gm 12/04/24 00:50 12/05/24 13:05 Dextrose 50% 25 Gm/50 Ml Syringe IV PUSH 12.5 gm PRN PRN Administration Hypoglycemia Protocol Escitalopram Oxalate 10 mg 12/05/24 09:00 12/05/24 10:29 Escitalopram Oxalate 10 Mg Tablet PO Not Given QAM BERNARDO Fluticasone/Umeclidinium/Vilanterol 1 puff 12/05/24 09:00 12/07/24 07:55 Fluticasone/Umeclidin/Vilanter 100-62.5-25 Mcg Ellipta INHALATION Not Given DAILY [facility] Glucose 15 gm 12/04/24 00:50 Glucose Oral Gel 15 Gm Of Glucse In 37.5 Gm Tube PO PRN PRN Hypoglycemia Protocol Heparin Sodium (Porcine) 5,000 units 12/04/24 14:00 12/07/24 14:21 Heparin Sodium 5,000 Units/Ml Vial SUB-Q Not Given Q8HR [facility]O Dextrose 1,000 mls @ 100 mls/hr 12/04/24 00:50 Dextrose 5% 1,000 Ml IVPB PRN PRN Hypoglycemia Protocol Doxycycline Hyclate 100 mg/ 100 mls @ 100 mls/hr 12/04/24 16:00 12/07/24 03:14 Sodium Chloride IVPB 12/09/24 04:59 100 mls/hr Q12H [facility] Administration Albumin Human 100 mls @ 60 mls/hr 12/05/24 12:00 12/07/24 14:21 Albutein IVPB Infused Q6HR [facility] Infusion Piperacillin Sod/Tazobactam 50 mls @ 100 mls/hr 12/06/24 13:00 12/07/24 15:00 Sod 2.25 gm/ Sodium Chloride IVPB Infused Q8HR [facility] Infusion Insulin Aspart 2 - 5 units 12/07/24 12:00 12/07/24 12:27 Insulin Aspart (*Bkc) 100 Units/Ml SUB-Q Not Given Q6HR [facility] Protocol Lidocaine 1 patch 12/05/24 09:00 12/07/24 09:46 Lidocaine 5% Patch TOPICAL Not Given DAILY [facility]O Loperamide HCl 2 mg 12/05/24 08:39 Loperamide Hcl 2 Mg Capsule PO Q6H PRN Diarrhea Metoprolol Tartrate 2.5 mg 12/07/24 11:12 Metoprolol Tartrate Inj 5 Mg/5 Ml Vial IV PUSH Q6H PRN Tachycardia Mirtazapine 7.5 mg 12/04/24 21:00 12/04/24 21:23 Mirtazapine 7.5 Mg Tablet PO 7.5 mg HS [facility]ERN[facility]O Administration Oxycodone HCl 5 mg 12/04/24 14:02 12/04/24 21:24 Oxycodone Hcl (*Crx) 5 Mg Tab Ir PO 5 mg Q12HR PRN Administration Pain Rated 7-10 Tamsulosin HCl 0.4 mg 12/05/24 09:00 12/07/24 09:01 Tamsulosin Hcl 0.4 Mg Capsule PO Not Given DAILY [facility] Umeclidinium [place] 1 puff 12/05/24 08:00 12/05/24 12:04 Umeclidinium [place] 62.5 Mcg Ellipta INHALATION Not Given DAILYRT [facility] Radiology Results: ITS Impressions Chest/Abdomen/Pelvis CT 12/04/24 07:39 IMPRESSION: 1. Left lower lobe pneumonia. 2. Mild to moderate bilateral renal atrophy with bilateral renal stents in expected position and similar pattern of increased density in the bilateral renal collecting systems which could represent either small residual excreted contrast as a recent contrast utilization or stones/stone fragments. Head CT 12/05/24 18:02 IMPRESSION: No acute intracranial process. Results reported telephonically to Kareen Avila RN by Dr. Medrano at 6:06 PM on 12/05/2024. Venous Doppler Study 12/05/24 20:05 IMPRESSION: Right cephalic DVT. No DVT detected in the left upper extremity. Chest X-Ray 12/06/24 08:22 Impression: 1: Bilateral perihilar and basilar infiltrates which may represent mild edema, pneumonia and/or atelectasis. No significant change from 12/05/2024. Brain MRI 12/06/24 12:55 IMPRESSION: 1. No significant change in chronic infarcts, the largest involving the plantar to the right middle cerebral and portions of the anterior cerebral artery vascular distribution. No acute intracranial process. 2. Unchanged significant decrease in caliber of the flow void at the right internal carotid artery which could be related to atherosclerosis and stenosis or decreased perfusion requirement secondary to the extensive infarction in the right cerebral hemisphere. Labs Labs: Laboratory Tests 12/07/24 05:51 12/07/24 05:51 Calcium 8.7 Total Bilirubin 0.8 AST 27 ALT 13 Alkaline Phosphatase 137 H Total Protein 5.8 L Albumin 3.3 L Microbiology 12/03/24 17:52 Blood Blood Culture - Preliminary 12/04/24 04:34 Blood Blood Culture - Preliminary 12/05/24 10:41 Urine [place] Urine Culture - Final
--- NOTE | 2024-12-07 13:05 | PC.NURSE ---
1258: Pt's mother to nurses's station with concern that pt is shaking. This RN and another RN to pt's room. Pt no longer shaking at this time, head remains turned to the left. No changes in pupils from 1200 assessment. VS stable. 1300: RN notified hospitalist. New orders for STAT head CT received. Hospitalist also request for RN to update Neurologist. 1303: RN notified Neurologist of pt's condition and VS. Clarified with Neurologist if a repeat head CT was warranted. New order to cancel head CT. Unfortunately, we don't know if the pt is having seizures or if this is all just related to the toxin build up from renal failure. We will obtain an EEG and await the results to determine further treatment.
--- NOTE | 2024-12-07 13:44 | PM.IMPN ---
Progress Note: A&P Assessment and Plan (1) Multifocal pneumonia: Code(s): J18.8 - Other pneumonia, unspecified organism Status: Acute (2) Sepsis: Code(s): A41.9 - Sepsis, unspecified organism Status: Acute (3) Sepsis associated hypotension: Code(s): A41.9 - Sepsis, unspecified organism; I95.9 - Hypotension, unspecified Status: Acute Plan Sepsis LLL Pnuemonia vs UTI HAP, recent hospitalization CT chest reviewed Blood/Urine culture pending Zosyn and Doxycycline MRSA negative UTI complicated Follow urine culture on Zosyn Acute hypoxemic resp failure pneumonia on 4 liters oxygen continue above care and titrate oxygen Recent acute renal failure creatinine peaking to 7 was down to 3.6 at discharge dialysis was discontinued. Readmission with creatinine of 4.6 and continues to incline. Nephrology consulted continue albumin likely needs initiation of renal replacement therapy plan for HD catheter placement today' nephrology team on board acute onset ams with ?facial droop: ct head was negative. MRI neg neurology. give aspirin 325 mg rectally for now. ? seizure. no prior history. lactate was nromal. EEG pending neurology team on board right cephalic vein thrombosis. on dvt proph. this is superficial vein thrombosis. continue conservative mgmt DM2 SSi with accucheks Hypertension: acute Chronic anemia no signs of bleeding continue to monitor may need Epogen, defer to nephrology team Recent partial small-bowel obstruction/hydrops gallbladder Mildly obstructing left ureteral calculus and right renal stones status post cystoscopy bilateral retrograde left ureteroscopy stone extraction bilateral ureteral stent placement 11/16/2024 and [place] catheter placement. urology team on board. DVT prophylaxis on Sq Heparin Subjective Date/time seen: 12/07/24 13:44 Interval history: Patient was seen and examined at bedside. he is unresponsive. had ? seizure activity per his nurse. will get EEG and ct head. neurology team on board. Nephrology team on board. plan for HD catheter placement and starting HD. Continue ZOsyn and DOxy for sepsis possible pneumonia vs UTI. follow culture results Resp failure. pneumonia vs COPD exacerbation. continue IvAbx concern for TIA. MRI neg. ?Seizure: will get EEG, CT head Anemia in setting of infection and kidney failure. continue to monitor. may need Epogen Review of Systems Review of Systems: All systems reviewed & are unremarkable except as noted in HPI and below (Subjective/HPI) ROS unobtainable: Yes unobtainable due to medical condition and unobtainable due to mental status Exam Narrative: GENERAL: Ill-appearing,somnolent, mumbles HEAD: Normocephalic, atraumatic. EYES: Non injected, non icteric. Pin point pupil on the R. Asymmetric pupil 4mm on the left, non reactive. Matted eyes ENT: No epistaxis. Dry mucous membranes NECK: Supple. CHEST: Poor air movement no respiratory distress, coarse breath sounds bilaterlaly HEART: Regular rate and rhythm. . ABDOMEN: Soft, nondistended. No rigidity or guarding SKIN: Dry, no rash. NEURO: somnolent, mumbles Extremities: Swollen upper extremities bilaterally which is slighlty better today Const: Other: Nonverbal. Grimacing to painful stimuli HENMT: Mouth: Yes dry mucous membranes Resp: Other: Coarse upper airway sounds with upper airway congestion Cardio: Rate: regular rate Rhythm: regular rhythm Extrem: Other: Trace pitting edema bilateral lower extremity below-knee Objective Data Vital Signs Vital Signs: Vital Signs - 24 hr 12/06/24 13:46 12/06/24 13:54 12/06/24 14:05 Temperature Pulse Rate 61 61 63 Respiratory Rate 20 20 Blood Pressure Pulse Oximetry Oxygen Delivery Oxygen Flow Rate Fraction of Inspired Oxygen 12/06/24 15:29 12/06/24 16:00 12/06/24 16:00 Temperature 97.8 F Pulse Rate 70 70 62 Respiratory Rate 16 16 Blood Pressure 118/39 L Pulse Oximetry 92 92 Oxygen Delivery Nasal Cannula Oxygen Flow Rate 5 Fraction of Inspired Oxygen 40 12/06/24 18:00 12/06/24 20:00 12/06/24 20:00 Temperature Pulse Rate 60 60 75 Respiratory Rate Blood Pressure Pulse Oximetry 93 Oxygen Delivery Nasal Cannula Oxygen Flow Rate 5 Fraction of Inspired Oxygen 12/06/24 20:02 12/06/24 22:00 12/06/24 22:05 Temperature 97.7 F Pulse Rate 69 62 62 Respiratory Rate 21 H 16 Blood Pressure 124/40 L Pulse Oximetry 98 Oxygen Delivery Oxygen Flow Rate Fraction of Inspired Oxygen 12/06/24 22:15 12/06/24 22:20 12/06/24 23:29 Temperature Pulse Rate 63 62 54 L Respiratory Rate 16 16 Blood Pressure Pulse Oximetry 95 96 Oxygen Delivery High Flow Nasal Cannula High Flow Nasal Cannula Oxygen Flow Rate 4 4 Fraction of Inspired Oxygen 12/06/24 23:35 12/07/24 00:52 12/07/24 02:00 Temperature 98.2 F Pulse Rate 63 74 Respiratory Rate 23 H Blood Pressure 117/35 L Pulse Oximetry 96 94 Oxygen Delivery High Flow Nasal Cannula Oxygen Flow Rate 3 Fraction of Inspired Oxygen 12/07/24 03:13 12/07/24 03:28 12/07/24 04:00 Temperature 98.4 F Pulse Rate 70 60 60 Respiratory Rate 22 H Blood Pressure 122/45 L Pulse Oximetry 95 95 Oxygen Delivery High Flow Nasal Cannula Oxygen Flow Rate 3 Fraction of Inspired Oxygen 12/07/24 06:00 12/07/24 06:10 12/07/24 06:18 Temperature Pulse Rate 61 63 62 Respiratory Rate 18 18 Blood Pressure Pulse Oximetry Oxygen Delivery Oxygen Flow Rate Fraction of Inspired Oxygen 12/07/24 06:20 12/07/24 08:00 12/07/24 08:00 Temperature 98.2 F Pulse Rate 63 63 63 Respiratory Rate 18 18 18 Blood Pressure 125/48 L Pulse Oximetry 97 95 95 Oxygen Delivery High Flow Nasal Cannula High Flow Nasal Cannula Oxygen Flow Rate 3 3 Fraction of Inspired Oxygen 12/07/24 08:00 12/07/24 10:00 12/07/24 12:00 Temperature 98.1 F Pulse Rate 57 L 62 60 Respiratory Rate 24 H Blood Pressure 111/52 L Pulse Oximetry 98 Oxygen Delivery Oxygen Flow Rate Fraction of Inspired Oxygen 12/07/24 12:00 12/07/24 12:00 12/07/24 12:58 Temperature 98.5 F Pulse Rate 60 57 L 62 Respiratory Rate 24 H 16 Blood Pressure 117/52 L Pulse Oximetry 98 96 Oxygen Delivery High Flow Nasal Cannula Oxygen Flow Rate 3 Fraction of Inspired Oxygen Intake/Output Intake/Output: Intake & Output 12/04/24 12/05/24 12/06/24 12/07/24 23:59 23:59 23:59 23:59 Intake Total 200 1550 700 200 Output Total 30 175 275 50 Balance 170 1375 425 150 Meds/Results Medications: Active Medications Generic Name Dose Route Start Last Admin Trade Name Freq PRN Reason Stop Dose Admin Acetaminophen 650 mg 12/04/24 01:55 Acetaminophen 650 Mg Suppository RECTAL Q6H PRN Mild Pain (1-3) or Fever Acetaminophen 650 mg 07/29/25 08:39 Acetaminophen 325 Mg Tablet PO Q8H PRN Pain, Mild Albuterol 2 puff 12/04/24 14:20 Albuterol Sulfate (*Sp) Aerosol 1 Puff INHALATION Q4HRT PRN Wheezing Albuterol/Ipratropium 3 ml 12/05/24 14:00 12/07/24 06:10 Ipratropium 0.5 Mg/Albuterol Sulfate 2.5 Mg Ampul.Neb 3 Ml INHALATION 3 ml TIDRT BERNARDO Administration Artificial Tears 1 drop 12/05/24 08:48 Artificial Tears Ophth Soln 15 Ml Bottle EACH EYE QID PRN Dry Eye(s) Aspirin 300 mg 12/07/24 09:00 12/07/24 09:40 Aspirin 300 Mg Suppository RECTAL 300 mg DAILY BERNARDO Administration Benzonatate 100 mg 12/05/24 08:39 Benzonatate 100 Mg Capsule PO TID PRN cough Brimonidine Tartrate 1 drop 12/05/24 14:00 12/07/24 05:06 Brimonidine Tartrate 0.2% Op Soln 5 Ml Btl EACH EYE 1 drop Q8HR BERNARDO Administration Brinzolamide 1 drop 12/05/24 14:00 12/07/24 05:06 Brinzolamide 1% Ophth Susp 10 Ml EACH EYE 1 drop Q8HR BERNARDO Administration Carvedilol 3.125 mg 12/05/24 08:00 12/07/24 09:01 Carvedilol 3.125 Mg Tablet PO Not Given BIDWM BERNARDO Dextrose 12.5 gm 12/04/24 00:50 12/05/24 13:05 Dextrose 50% 25 Gm/50 Ml Syringe IV PUSH 12.5 gm PRN PRN Administration Hypoglycemia Protocol Escitalopram Oxalate 10 mg 12/05/24 09:00 12/05/24 10:29 Escitalopram Oxalate 10 Mg Tablet PO Not Given QAM BERNARDO Fluticasone/Umeclidinium/Vilanterol 1 puff 12/05/24 09:00 12/07/24 07:55 Fluticasone/Umeclidin/Vilanter 100-62.5-25 Mcg Ellipta INHALATION Not Given DAILY BERNARDO Glucose 15 gm 12/04/24 00:50 Glucose Oral Gel 15 Gm Of Glucse In 37.5 Gm Tube PO PRN PRN Hypoglycemia Protocol Heparin Sodium (Porcine) 5,000 units 12/04/24 14:00 12/07/24 05:05 Heparin Sodium 5,000 Units/Ml Vial SUB-Q 5,000 units Q8HR BERNARDO Administration Dextrose 1,000 mls @ 100 mls/hr 12/04/24 00:50 Dextrose 5% 1,000 Ml IVPB PRN PRN Hypoglycemia Protocol Doxycycline Hyclate 100 mg/ 100 mls @ 100 mls/hr 12/04/24 16:00 12/07/24 03:14 Sodium Chloride IVPB 12/09/24 04:59 100 mls/hr Q12H BERNARDO Administration Albumin Human 100 mls @ 60 mls/hr 12/05/24 12:00 12/07/24 12:27 Albutein IVPB 60 mls/hr Q6HR BERNARDO Administration Piperacillin Sod/Tazobactam 50 mls @ 100 mls/hr 12/06/24 13:00 12/07/24 05:03 Sod 2.25 gm/ Sodium Chloride IVPB 100 mls/hr Q8HR BERNARDO Administration Insulin Aspart 2 - 5 units 12/07/24 12:00 12/07/24 12:27 Insulin Aspart (*Bkc) 100 Units/Ml SUB-Q Not Given Q6HR [facility] Protocol Lidocaine 1 patch 12/05/24 09:00 12/07/24 09:46 Lidocaine 5% Patch TOPICAL Not Given DAILY [facility] Loperamide HCl 2 mg 12/05/24 08:39 Loperamide Hcl 2 Mg Capsule PO Q6H PRN Diarrhea Metoprolol Tartrate 2.5 mg 12/07/24 11:12 Metoprolol Tartrate Inj 5 Mg/5 Ml Vial IV PUSH Q6H PRN Tachycardia Mirtazapine 7.5 mg 12/04/24 21:00 12/04/24 21:23 Mirtazapine 7.5 Mg Tablet PO 7.5 mg HS BERNARDO Administration Oxycodone HCl 5 mg 12/04/24 14:02 12/04/24 21:24 Oxycodone Hcl (*Crx) 5 Mg Tab Ir PO 5 mg Q12HR PRN Administration Pain Rated 7-10 Tamsulosin HCl 0.4 mg 12/05/24 09:00 12/07/24 09:01 Tamsulosin Hcl 0.4 Mg Capsule PO Not Given DAILY [facility] Umeclidinium [place] 1 puff 12/05/24 08:00 12/05/24 12:04 Umeclidinium [place] 62.5 Mcg Ellipta INHALATION [facility] Results: ITS Impressions Chest/Abdomen/Pelvis CT 12/04/24 07:39 IMPRESSION: 1. Left lower lobe pneumonia. 2. Mild to moderate bilateral renal atrophy with bilateral renal stents in expected position and similar pattern of increased density in the bilateral renal collecting systems which could represent either small residual excreted contrast as a recent contrast utilization or stones/stone fragments. Head CT 12/05/24 18:02 IMPRESSION: No acute intracranial process. Results reported telephonically to Kareen Avila RN by Dr. Medrano at 6:06 PM on 12/05/2024. Venous Doppler Study 12/05/24 20:05 IMPRESSION: Right cephalic DVT. No DVT detected in the left upper extremity. Chest X-Ray 12/06/24 08:22 Impression: 1: Bilateral perihilar and basilar infiltrates which may represent mild edema, pneumonia and/or atelectasis. No significant change from 12/05/2024. Brain MRI 12/06/24 12:55 IMPRESSION: 1. No significant change in chronic infarcts, the largest involving the plantar to the right middle cerebral and portions of the anterior cerebral artery vascular distribution. No acute intracranial process. 2. Unchanged significant decrease in caliber of the flow void at the right internal carotid artery which could be related to atherosclerosis and stenosis or decreased perfusion requirement secondary to the extensive infarction in the right cerebral hemisphere. Labs Labs: Laboratory Results - last 24 hr 12/05/24 12/06/24 12/06/24 21:09 05:15 18:00 WBC RBC Hgb Hct MCV MCH MCHC RDW Plt Count MPV Immature Gran % (Auto) Neut % (Auto) Lymph % (Auto) [place] % (Auto) Eos % (Auto) Baso % (Auto) Lymph # (Auto) [place] # (Auto) Eos # (Auto) Baso # (Auto) Abs Immat Gran (auto) Absolute Neuts (auto) Absolute Nucleated RBC Band Neutrophils % Nucleated RBC % Platelet Estimate % Immature Plt Fraction [place] Cells Schistocytes PT INR APTT Sodium Potassium Chloride Carbon Dioxide Anion Gap BUN Creatinine Estim Creat Clear Calc Estimated GFR Glucose POC Capillary Glucose 85 Calcium Total Bilirubin AST ALT Alkaline Phosphatase Total Protein Albumin Prolactin 0.9 L Nasal MRSA (PCR) Miscellaneous Test Comment Blood Type Antibody Screen 12/07/24 12/07/24 12/07/24 00:01 03:17 05:51 WBC 11.8 H RBC 2.52 L Hgb 7.1 L Hct 25.1 L MCV 99.6 D MCH 28.2 MCHC 28.3 L RDW 15.5 H Plt Count 150 MPV 9.9 Immature Gran % (Auto) 1.2 H Neut % (Auto) 77.8 H Lymph % (Auto) 9.0 L [place] % (Auto) 6.6 Eos % (Auto) 4.8 H Baso % (Auto) 0.6 Lymph # (Auto) 1.07 [place] # (Auto) 0.8 H Eos # (Auto) 0.6 H Baso # (Auto) 0.1 Abs Immat Gran (auto) 0.14 H Absolute Neuts (auto) 9.2 H Absolute Nucleated RBC 0.000 Band Neutrophils % Not Reportable Nucleated RBC % 0.0 Platelet Estimate Adequate % Immature Plt Fraction 0.7 L [place] Cells 1+ Schistocytes None seen PT 16.9 H D INR 1.4 APTT 35.0 Sodium 138 Potassium 3.8 Chloride 110 H Carbon Dioxide 18 L Anion Gap 10 BUN 49 H Creatinine 5.92 H Estim Creat Clear Calc 14 Estimated GFR 10 L Glucose 90 POC Capillary Glucose 89 Calcium 8.7 Total Bilirubin 0.8 AST 27 ALT 13 Alkaline Phosphatase 137 H Total Protein 5.8 L Albumin 3.3 L Prolactin Nasal MRSA (PCR) Not detected Miscellaneous Test Blood Type Antibody Screen 12/07/24 12/07/24 12:23 12:43 WBC RBC Hgb Hct MCV MCH MCHC RDW Plt Count MPV Immature Gran % (Auto) Neut % (Auto) Lymph % (Auto) [place] % (Auto) Eos % (Auto) Baso % (Auto) Lymph # (Auto) [place] # (Auto) Eos # (Auto) Baso # (Auto) Abs Immat Gran (auto) Absolute Neuts (auto) Absolute Nucleated RBC Band Neutrophils % Nucleated RBC % Platelet Estimate % Immature Plt Fraction [place] Cells Schistocytes PT INR APTT Sodium Potassium Chloride Carbon Dioxide Anion Gap BUN Creatinine Estim Creat Clear Calc Estimated GFR Glucose POC Capillary Glucose 98 Calcium Total Bilirubin AST ALT Alkaline Phosphatase Total Protein Albumin Prolactin Nasal MRSA (PCR) Miscellaneous Test Blood Type A Positive Antibody Screen Negative
--- NOTE | 2024-12-07 13:45 | PCSTNOTE ---
ST attempted to complete bedside swallow evaluation; third attempt in as many days; pt is unarousable. ST to cancel order; reorder if/when pt becomes more alert
--- NOTE | 2024-12-07 14:14 | PCNEURO ---
Patient leaving soon for procedure. Nurse will contact me when finished.
--- NOTE | 2024-12-07 14:19 | PC.NURSE ---
Addendum entered by Holly Giraldo RN 12/07/24 14:20: 1400 & 1600 ABX sent with Pre-op ,RN Original Note: To OR per [bed. Report given to [Ramona, RN ]. Family at bedside
--- NOTE | 2024-12-07 16:10 | WPDHPUPDATE1 ---
History and Physical Update Update Date/Time: 12/07/24 16:10 Patient here a couple weeks ago requiring dialysis. He is back requiring more dialysis. We will go ahead and place a tunneled central venous catheter under fluoroscopy using ultrasound for dialysis access. History and Physical has been reviewed, including an updated exam of the patient. There are NO changes in the patient's condition. Risks, benefits, and alternatives have been discussed and questions answered. Patient agrees to proceed with procedure.
--- NOTE | 2024-12-07 16:11 | P.PNAN_ITS ---
Anes - Initial Pre Proc Eval Procedure: Operation Date: 12/07/24 15:30 Proposed Procedures p Insertion Tunneled Dialysis Catheter - Arnav Munoz MD Date/Time: 12/07/24 16:11 Surgeon: Marine Dumont MD Pre Op Diagnosis: pneumonia; septic shock; ARF Patient Data Age: 69 Gender: M Height: 1.83 m Weight: 109.5 kg Last Vital Signs Temp 36.9 C 12/07/24 12:58 Pulse 60 12/07/24 14:00 Resp 16 12/07/24 12:58 BP 117/52 L 12/07/24 12:58 Pulse Ox 96 12/07/24 12:58 O2 Del Method High Flow Nasal Cannula 12/07/24 12:00 O2 Flow Rate 3 12/07/24 12:00 FiO2 40 12/06/24 16:00 Allergies Allergy/AdvReac Type Severity Reaction Status Date / Time hydralazine AdvReac Vomiting Verified 12/04/24 01:33 lisinopril AdvReac Rash Verified 12/04/24 01:33 metformin AdvReac Diarrhea Verified 12/04/24 01:33 pioglitazone AdvReac Nausea Verified 12/04/24 01:33 simvastatin AdvReac Rash Verified 12/04/24 01:33 Home Medications ?Medication ?Instructions ?Recorded ?Confirmed ?Type acetaminophen 325 mg tablet 650 mg PO Q8H PRN Pain, Mild 11/07/23 12/04/24 History albuterol sulfate 90 mcg/actuation 2 puff inhalation Q4H PRN Wheezing 11/07/23 12/04/24 History aerosol inhaler aspirin 81 mg tablet,delayed 81 mg PO DAILY 11/07/23 12/04/24 History release cabergoline 0.5 mg tablet 1 mg PO 2XW 11/07/23 12/04/24 History carboxymethylcellulose sodium 0.5 1 drp EACH EYE QID PRN Dry Eyes 11/07/23 12/04/24 History % eye drops in a dropperette (Refresh Plus) carvedilol 3.125 mg tablet 3.125 mg PO BID 11/07/23 12/04/24 History dextromethorphan-guaifenesin 10 10 ml PO Q4-6H PRN Cough 11/07/23 12/04/24 History mg-100 mg/5 mL oral syrup escitalopram oxalate 20 mg tablet 10 mg PO QAM 11/07/23 12/04/24 History gabapentin 100 mg capsule 100 mg PO TID 11/07/23 12/04/24 History glipizide 5 mg tablet 5 mg PO QAM 11/07/23 12/04/24 History loperamide 2 mg capsule 2 mg PO Q6H PRN Diarrhea 11/07/23 12/04/24 History (Anti-Diarrheal (loperamide)) melatonin 5 mg tablet 5 mg PO HS 11/07/23 12/04/24 History ondansetron 4 mg disintegrating 4 mg PO Q4H PRN Nausea And Vomiting 11/07/23 12/04/24 History tablet rosuvastatin 40 mg tablet 40 mg PO QHS 11/07/23 12/04/24 History sennosides 8.6 mg tablet (Senokot) 8.6 mg PO PRN PRN Constipation 11/07/23 12/04/24 History tiotropium bromide 2.5 2 puff inhalation QAM 11/07/23 12/04/24 History mcg/actuation mist for inhalation (Spiriva Respimat) benzonatate 100 mg capsule 100 mg PO TID PRN cough 05/16/24 12/04/24 History brinzolamide 1 %-brimonidine 0.2 % 1 drp EACH EYE TID 05/18/24 12/04/24 History eye drops,suspension (Simbrinza) budesonide 160 mcg-glycopyr 9 2 inh inhalation BID 05/18/24 12/04/24 History mcg-formot 4.8 mcg/actuation HFA inhaler (Breztri Aerosphere) oxycodone 5 mg tablet 5 mg PO Q12H pain 05/18/24 12/04/24 History insulin aspart U-100 100 unit/mL 1 sliding scale dose subcut 05/20/24 12/04/24 Rx (3 mL) subcutaneous pen (Novolog USEASDIRECTD #15 mL FlexPen U-100 Insulin aspart) insulin glargine 100 unit/mL 15 unit (0.15 mL) subcut HS 15 05/20/24 12/04/24 Rx subcutaneous solution (Lantus days #2.25 mL U-100 Insulin) cholestyramine 4 gram oral powder 4 g PO TID 11/13/24 12/04/24 History lidocaine 5 % topical patch 1 patch topical DAILY back pain 11/13/24 12/04/24 History psyllium husk 0.4 gram capsule 0.4 g PO DAILY PRN constipation 11/13/24 12/04/24 History (Fiber (psyllium husk)) duloxetine 20 mg capsule,delayed 20 mg PO DAILY 12/04/24 12/04/24 History release sprinkle (Drizalma Sprinkle) ipratropium 0.5 mg-albuterol 3 mg 3 ml inhalation TID 12/04/24 12/04/24 History (2.5 mg base)/3 mL nebulization soln memantine 5 mg tablet (Namenda) 5 mg PO DAILY 12/04/24 12/04/24 History mirtazapine 7.5 mg tablet 7.5 mg PO HS 12/04/24 12/04/24 History tamsulosin 0.4 mg capsule (Flomax) 0.4 mg PO DAILY 12/04/24 12/04/24 History Laboratory Tests 12/05/24 12/06/24 12/06/24 21:09 05:15 18:00 WBC RBC Hgb Hct MCV MCH MCHC RDW Plt Count MPV Immature Gran % (Auto) Neut % (Auto) Lymph % (Auto) [place] % (Auto) Eos % (Auto) Baso % (Auto) Lymph # (Auto) [place] # (Auto) Eos # (Auto) Baso # (Auto) Abs Immat Gran (auto) Absolute Neuts (auto) Absolute Nucleated RBC Band Neutrophils % Nucleated RBC % Platelet Estimate % Immature Plt Fraction [place] Cells Schistocytes PT INR APTT Sodium Potassium Chloride Carbon Dioxide Anion Gap BUN Creatinine Estim Creat Clear Calc Estimated GFR Glucose POC Capillary Glucose 85 mg/dl (65-105) Calcium Total Bilirubin AST ALT Alkaline Phosphatase Total Protein Albumin Prolactin 0.9 L ng/mL (3.6-25.2) Nasal MRSA (PCR) Miscellaneous Test Comment (.) Blood Type Antibody Screen 12/07/24 12/07/24 12/07/24 00:01 03:17 05:51 WBC 11.8 H K/mm3 (4.5-10.0) RBC 2.52 L M/mm3 (4.6-6.20) Hgb 7.1 L g/dL (14.0-18.0) Hct 25.1 L % (42.0-52.0) MCV 99.6 D fl (80-100) MCH 28.2 pg (26-34) MCHC 28.3 L g/dl (32-36) RDW 15.5 H % (11.5-14.5) Plt Count 150 k/mm3 (150-375) MPV 9.9 fl (7.4-10.4) Immature Gran % (Auto) 1.2 H % (0-0.5) Neut % (Auto) 77.8 H % (45.5-73.1) Lymph % (Auto) 9.0 L % (18.3-44.2) [place] % (Auto) 6.6 % (2.6-8.5) Eos % (Auto) 4.8 H % (0-4.4) Baso % (Auto) 0.6 % (0.2-1.2) Lymph # (Auto) 1.07 K/mm3 (0.9-3.2) [place] # (Auto) 0.8 H K/mm3 (0.1-0.6) Eos # (Auto) 0.6 H K/mm3 (0-0.3) Baso # (Auto) 0.1 K/mm3 (0.0-0.1) Abs Immat Gran (auto) 0.14 H K/mm3 (0.00-0.031) Absolute Neuts (auto) 9.2 H K/mm3 (1.3-6.7) Absolute Nucleated RBC 0.000 K/mm3 (0.0-0.012) Band Neutrophils % Not Reportable Nucleated RBC % 0.0 % (0.0-0.2) Platelet Estimate Adequate (Adequate) % Immature Plt Fraction 0.7 L % (0.9-11.2) [place] Cells 1+ Schistocytes None seen PT 16.9 H D Seconds (11.1-14.7) INR 1.4 APTT 35.0 Seconds (22.3-36.8) Sodium 138 mmol/L (137-145) Potassium 3.8 mmol/L (3.4-5.0) Chloride 110 H mmol/L (98-107) Carbon Dioxide 18 L mmol/L (22-30) Anion Gap 10 mmol/L (4-12) BUN 49 H mg/dL (9-20) Creatinine 5.92 H mg/dL (0.7-1.3) Estim Creat Clear Calc 14 ml/min Estimated GFR 10 L (59 - ) Glucose 90 mg/dL (65-110) POC Capillary Glucose 89 mg/dl (65-105) Calcium 8.7 mg/dL (8.4-10.2) Total Bilirubin 0.8 mg/dL (0.2-1.3) AST 27 U/L (17-59) ALT 13 U/L (6-50) Alkaline Phosphatase 137 H U/L (38-126) Total Protein 5.8 L g/dL (6.3-8.2) Albumin 3.3 L g/dL (3.5-5.1) Prolactin Nasal MRSA (PCR) Not detected (NOT DETECTE) Miscellaneous Test Blood Type Antibody Screen 12/07/24 12/07/24 12:23 12:43 WBC RBC Hgb Hct MCV MCH MCHC RDW Plt Count MPV Immature Gran % (Auto) Neut % (Auto) Lymph % (Auto) [place] % (Auto) Eos % (Auto) Baso % (Auto) Lymph # (Auto) [place] # (Auto) Eos # (Auto) Baso # (Auto) Abs Immat Gran (auto) Absolute Neuts (auto) Absolute Nucleated RBC Band Neutrophils % Nucleated RBC % Platelet Estimate % Immature Plt Fraction [place] Cells Schistocytes PT INR APTT Sodium Potassium Chloride Carbon Dioxide Anion Gap BUN Creatinine Estim Creat Clear Calc Estimated GFR Glucose POC Capillary Glucose 98 mg/dl (65-105) Calcium Total Bilirubin AST ALT Alkaline Phosphatase Total Protein Albumin Prolactin Nasal MRSA (PCR) Miscellaneous Test Blood Type A Positive Antibody Screen Negative Patient hx anesthesia problems: none Family hx anesthesia problems: none Results Review: All pre-operative results and documents have been reviewed as part of the pre- operative evaluation. [facility] Past Medical History Medical History Chronic right arterial ischemic stroke, MCA (middle cerebral artery) Coronary artery disease Benign prostatic hyperplasia Tobacco abuse Chronic obstructive pulmonary disease Obstructive sleep apnea Intolerant of CPAP Hypertension Type 2 diabetes mellitus Cerebrovascular accident Surgical History Surgical History S/P total colectomy Laparoscopic subtotal colectomy with ileorectal anastomosis 12/25/[address] Uche Laurent at [facility] History of coronary artery stent placement History of cardiac catheterization Family History Family History Other Family history non-contributory Social History Social History Social History: Surrogate medical decision maker: Clarita Hobbs, mother. Code status: POLST signed 11/26/21 indicates DNR (Do not resusictate) with comfort-focused treatment Smoking packs per day: 1 Smoking cigarettes per day: 20.0 Years smoked: 50 Smoking pack-years: 50.00 Smoking status: Former smoker Tobacco type: cigarettes Alcohol intake: former Substance use: never Do You Feel Safe in your Home?: Yes Lack of Transportation: No Lack of Food: Never True Current Housing: I Have Housing Concerned About Future Housing: No Difficulty Paying Gas/Electric Bills: No Difficulty Paying for Meds: No Currently Unemployed: No Education: High School Diploma/GED Difficulty w/ Childcare or Family Care: No Additional living arrangements comments: Resident at [facility]. 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 Spiritual care concerns: No Anes - Eval Final PreProcedure Day of Procedure 12/07/24 16:11 Patient weight: obese Heart: regular rate and rhythm Lungs: decreased breath sounds Neurological: confused Last oral intake: >/= 8 hours ASA classification: IV Emergent: no Anesthetic plan: proceed Anesthesia type and monitoring: general GIVS and standard monitoring Results Review: All pre-operative results and documents have been reviewed as part of the pre- operative evaluation. Informed Consent: The patient's anesthetic plan and its attendant risks and benefits were discussed with the patient/family/POA. Questions were solicited and answers provided to the satisfaction of the patient/family/POA.
--- NOTE | 2024-12-07 16:12 | P.CONGS_ITS ---
Assessment and Plan Assessment and plan (1) Acute renal failure: Qualifiers: Acute renal failure type: unspecified Qualified Code(s): N17.9 - Acute kidney failure, unspecified Code(s): N17.9 - Acute kidney failure, unspecified Status: Acute Assessment and Plan: Patient encephalopathic with renal failure. Asked place dialysis access. (2) Admission for fitting and adjustment of vascular catheter: Code(s): Z45.2 - Encounter for adjustment and management of vascular access device Status: Acute Assessment and Plan: Will proceed with tunneled dialysis access under fluoroscopy as requested by Nephrology. History of Present Illness Consult details Consult date: 12/07/24 [facility] Past Medical History Medical History Chronic right arterial ischemic stroke, MCA (middle cerebral artery) Coronary artery disease Benign prostatic hyperplasia Tobacco abuse Chronic obstructive pulmonary disease Obstructive sleep apnea Intolerant of CPAP Hypertension Type 2 diabetes mellitus Cerebrovascular accident Surgical History Surgical History S/P total colectomy Laparoscopic subtotal colectomy with ileorectal anastomosis 12/25/[address] Uche Laurent at [facility] History of coronary artery stent placement History of cardiac catheterization Family History Family History Other Family history non-contributory Social History Social History Social History: Surrogate medical decision maker: Clarita Hobbs, mother. Code status: POLST signed 11/26/21 indicates DNR (Do not resusictate) with comfort-focused treatment Smoking packs per day: 1 Smoking cigarettes per day: 20.0 Years smoked: 50 Smoking pack-years: 50.00 Smoking status: Former smoker Tobacco type: cigarettes Alcohol intake: former Substance use: never Do You Feel Safe in your Home?: Yes Lack of Transportation: No Lack of Food: Never True Current Housing: I Have Housing Concerned About Future Housing: No Difficulty Paying Gas/Electric Bills: No Difficulty Paying for Meds: No Currently Unemployed: No Education: High School Diploma/GED Difficulty w/ Childcare or Family Care: No Additional living arrangements comments: Resident at [facility]. 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 Spiritual care concerns: No Meds Home Medications and Allergies Home Medications ?Medication ?Instructions ?Recorded ?Confirmed ?Type acetaminophen 325 mg tablet 650 mg PO Q8H PRN Pain, Mild 11/07/23 12/04/24 History albuterol sulfate 90 mcg/actuation 2 puff inhalation Q4H PRN Wheezing 11/07/23 12/04/24 History aerosol inhaler aspirin 81 mg tablet,delayed 81 mg PO DAILY 11/07/23 12/04/24 History release cabergoline 0.5 mg tablet 1 mg PO 2XW 11/07/23 12/04/24 History carboxymethylcellulose sodium 0.5 1 drp EACH EYE QID PRN Dry Eyes 11/07/23 12/04/24 History % eye drops in a dropperette (Refresh Plus) carvedilol 3.125 mg tablet 3.125 mg PO BID 11/07/23 12/04/24 History dextromethorphan-guaifenesin 10 10 ml PO Q4-6H PRN Cough 11/07/23 12/04/24 History mg-100 mg/5 mL oral syrup escitalopram oxalate 20 mg tablet 10 mg PO QAM 11/07/23 12/04/24 History gabapentin 100 mg capsule 100 mg PO TID 11/07/23 12/04/24 History glipizide 5 mg tablet 5 mg PO QAM 11/07/23 12/04/24 History loperamide 2 mg capsule 2 mg PO Q6H PRN Diarrhea 11/07/23 12/04/24 History (Anti-Diarrheal (loperamide)) melatonin 5 mg tablet 5 mg PO HS 11/07/23 12/04/24 History ondansetron 4 mg disintegrating 4 mg PO Q4H PRN Nausea And Vomiting 11/07/23 12/04/24 History tablet rosuvastatin 40 mg tablet 40 mg PO QHS 11/07/23 12/04/24 History sennosides 8.6 mg tablet (Senokot) 8.6 mg PO PRN PRN Constipation 11/07/23 12/04/24 History tiotropium bromide 2.5 2 puff inhalation QAM 11/07/23 12/04/24 History mcg/actuation mist for inhalation (Spiriva Respimat) benzonatate 100 mg capsule 100 mg PO TID PRN cough 05/16/24 12/04/24 History brinzolamide 1 %-brimonidine 0.2 % 1 drp EACH EYE TID 05/18/24 12/04/24 History eye drops,suspension (Simbrinza) budesonide 160 mcg-glycopyr 9 2 inh inhalation BID 05/18/24 12/04/24 History mcg-formot 4.8 mcg/actuation HFA inhaler (Breztri Aerosphere) oxycodone 5 mg tablet 5 mg PO Q12H pain 05/18/24 12/04/24 History insulin aspart U-100 100 unit/mL 1 sliding scale dose subcut 05/20/24 12/04/24 Rx (3 mL) subcutaneous pen (Novolog USEASDIRECTD #15 mL FlexPen U-100 Insulin aspart) insulin glargine 100 unit/mL 15 unit (0.15 mL) subcut HS 15 05/20/24 12/04/24 Rx subcutaneous solution (Lantus days #2.25 mL U-100 Insulin) cholestyramine 4 gram oral powder 4 g PO TID 11/13/24 12/04/24 History lidocaine 5 % topical patch 1 patch topical DAILY back pain 11/13/24 12/04/24 History psyllium husk 0.4 gram capsule 0.4 g PO DAILY PRN constipation 11/13/24 12/04/24 History (Fiber (psyllium husk)) duloxetine 20 mg capsule,delayed 20 mg PO DAILY 12/04/24 12/04/24 History release sprinkle (Drizalma Sprinkle) ipratropium 0.5 mg-albuterol 3 mg 3 ml inhalation TID 12/04/24 12/04/24 History (2.5 mg base)/3 mL nebulization soln memantine 5 mg tablet (Namenda) 5 mg PO DAILY 12/04/24 12/04/24 History mirtazapine 7.5 mg tablet 7.5 mg PO HS 12/04/24 12/04/24 History tamsulosin 0.4 mg capsule (Flomax) 0.4 mg PO DAILY 12/04/24 12/04/24 History Allergies Allergy/AdvReac Type Severity Reaction Status Date / Time hydralazine AdvReac Vomiting Verified 12/04/24 01:33 lisinopril AdvReac Rash Verified 12/04/24 01:33 metformin AdvReac Diarrhea Verified 12/04/24 01:33 pioglitazone AdvReac Nausea Verified 12/04/24 01:33 simvastatin AdvReac Rash Verified 12/04/24 01:33 Vital Signs Vital Signs - 24 hr 12/06/24 18:00 12/06/24 20:00 12/06/24 20:00 Temperature Pulse Rate 60 60 75 Respiratory Rate Blood Pressure Pulse Oximetry 93 Oxygen Delivery Nasal Cannula Oxygen Flow Rate 5 12/06/24 20:02 12/06/24 22:00 12/06/24 22:05 Temperature 36.5 C Pulse Rate 69 62 62 Respiratory Rate 21 H 16 Blood Pressure 124/40 L Pulse Oximetry 98 Oxygen Delivery Oxygen Flow Rate 12/06/24 22:15 12/06/24 22:20 12/06/24 23:29 Temperature Pulse Rate 63 62 54 L Respiratory Rate 16 16 Blood Pressure Pulse Oximetry 95 96 Oxygen Delivery High Flow Nasal Cannula High Flow Nasal Cannula Oxygen Flow Rate 4 4 12/06/24 23:35 12/07/24 00:52 12/07/24 02:00 Temperature 36.8 C Pulse Rate 63 74 Respiratory Rate 23 H Blood Pressure 117/35 L Pulse Oximetry 96 94 Oxygen Delivery High Flow Nasal Cannula Oxygen Flow Rate 3 12/07/24 03:13 12/07/24 03:28 12/07/24 04:00 Temperature 36.9 C Pulse Rate 70 60 60 Respiratory Rate 22 H Blood Pressure 122/45 L Pulse Oximetry 95 95 Oxygen Delivery High Flow Nasal Cannula Oxygen Flow Rate 3 12/07/24 06:00 12/07/24 06:10 12/07/24 06:18 Temperature Pulse Rate 61 63 62 Respiratory Rate 18 18 Blood Pressure Pulse Oximetry Oxygen Delivery Oxygen Flow Rate 12/07/24 06:20 12/07/24 08:00 12/07/24 08:00 Temperature 36.8 C Pulse Rate 63 63 63 Respiratory Rate 18 18 18 Blood Pressure 125/48 L Pulse Oximetry 97 95 95 Oxygen Delivery High Flow Nasal Cannula High Flow Nasal Cannula Oxygen Flow Rate 3 3 12/07/24 08:00 12/07/24 10:00 12/07/24 12:00 Temperature 36.7 C Pulse Rate 57 L 62 60 Respiratory Rate 24 H Blood Pressure 111/52 L Pulse Oximetry 98 Oxygen Delivery Oxygen Flow Rate 12/07/24 12:00 12/07/24 12:00 12/07/24 12:58 Temperature 36.9 C Pulse Rate 60 57 L 62 Respiratory Rate 24 H 16 Blood Pressure 117/52 L Pulse Oximetry 98 96 Oxygen Delivery High Flow Nasal Cannula Oxygen Flow Rate 3 12/07/24 14:00 Temperature Pulse Rate 60 Respiratory Rate Blood Pressure Pulse Oximetry Oxygen Delivery Oxygen Flow Rate Results Labs 12/07/24 05:51 12/07/24 05:51 Labs: Abnormal lab results 12/05/24 12/07/24 Range/Units 21:09 05:51 WBC 11.8 H (4.5-10.0) K/mm3 RBC 2.52 L (4.6-6.20) M/mm3 Hgb 7.1 L (14.0-18.0) g/dL Hct 25.1 L (42.0-52.0) % MCHC 28.3 L (32-36) g/dl RDW 15.5 H (11.5-14.5) % Immature Gran % (Auto) 1.2 H (0-0.5) % Neut % (Auto) 77.8 H (45.5-73.1) % Lymph % (Auto) 9.0 L (18.3-44.2) % Eos % (Auto) 4.8 H (0-4.4) % [place] # (Auto) 0.8 H (0.1-0.6) K/mm3 Eos # (Auto) 0.6 H (0-0.3) K/mm3 Abs Immat Gran (auto) 0.14 H (0.00-0.031) K/mm3 Absolute Neuts (auto) 9.2 H (1.3-6.7) K/mm3 % Immature Plt Fraction 0.7 L (0.9-11.2) % PT 16.9 H D (11.1-14.7) Seconds Chloride 110 H (98-107) mmol/L Carbon Dioxide 18 L (22-30) mmol/L BUN 49 H (9-20) mg/dL Creatinine 5.92 H (0.7-1.3) mg/dL Estimated GFR 10 L (59 - ) Alkaline Phosphatase 137 H (38-126) U/L Total Protein 5.8 L (6.3-8.2) g/dL Albumin 3.3 L (3.5-5.1) g/dL Prolactin 0.9 L (3.6-25.2) ng/mL Diabetes panel 12/07/24 Range/Units 05:51 Sodium 138 (137-145) mmol/L Potassium 3.8 (3.4-5.0) mmol/L Chloride 110 H (98-107) mmol/L Carbon Dioxide 18 L (22-30) mmol/L BUN 49 H (9-20) mg/dL Creatinine 5.92 H (0.7-1.3) mg/dL Glucose 90 (65-110) mg/dL Calcium 8.7 (8.4-10.2) mg/dL AST 27 (17-59) U/L ALT 13 (6-50) U/L Alkaline Phosphatase 137 H (38-126) U/L Total Protein 5.8 L (6.3-8.2) g/dL Albumin 3.3 L (3.5-5.1) g/dL Calcium panel 12/07/24 Range/Units 05:51 Calcium 8.7 (8.4-10.2) mg/dL Albumin 3.3 L (3.5-5.1) g/dL Pituitary panel 12/05/24 12/07/24 Range/Units 21:09 05:51 Sodium 138 (137-145) mmol/L Potassium 3.8 (3.4-5.0) mmol/L Chloride 110 H (98-107) mmol/L Carbon Dioxide 18 L (22-30) mmol/L BUN 49 H (9-20) mg/dL Creatinine 5.92 H (0.7-1.3) mg/dL Glucose 90 (65-110) mg/dL Calcium 8.7 (8.4-10.2) mg/dL Prolactin 0.9 L (3.6-25.2) ng/mL Adrenal panel 12/07/24 Range/Units 05:51 Sodium 138 (137-145) mmol/L Potassium 3.8 (3.4-5.0) mmol/L Chloride 110 H (98-107) mmol/L Carbon Dioxide 18 L (22-30) mmol/L BUN 49 H (9-20) mg/dL Creatinine 5.92 H (0.7-1.3) mg/dL Glucose 90 (65-110) mg/dL Calcium 8.7 (8.4-10.2) mg/dL Total Bilirubin 0.8 (0.2-1.3) mg/dL AST 27 (17-59) U/L ALT 13 (6-50) U/L Alkaline Phosphatase 137 H (38-126) U/L Total Protein 5.8 L (6.3-8.2) g/dL Albumin 3.3 L (3.5-5.1) g/dL All other labs normal.
[2024-12-07] MEDS: ceFAZolin 2 GM in SODIUM CHLORIDE 0.9% IV 50 ML 100 ML IVPB (16:25)
[2024-12-07] MEDS: HEPARIN SODIUM, PORCINE 10,000 UNITS/10 ML VIAL 4 UNITS IRRIGATION (16:51)
[2024-12-07] MEDS: LIDO 1%/EPINEPHRINE 1:100,000 50 ML VIAL 25 ML INFILTRATE (16:55)
[2024-12-07] MEDS: SODIUM CHLORIDE 0.9% IV 500 ML 30 ML IV CONT (17:11)
--- NOTE | 2024-12-07 17:45 | W.PM.PROC2 ---
Procedure Note - Detailed Date of Procedure 12/07/24 Pre-op Diagnosis End-stage renal disease with acute kidney injury, inadequate venous access for dialysis Post-op Diagnosis Same Procedure Performed Placement left internal jugular tunneled central venous catheter under fluoroscopy and using ultrasound Surgeon Arnav Munoz MD [employer]products Extractor Gretchen Clayton [employer]W TECHNICIAN Anesthesia General (G IV S) and Local Indications Patient is encephalopathic and uremic. I was asked to place a vascular access catheter so he could be dialyzed. Findings Catheter tip distal SVC, right atrial junction Description of Procedure Patient was taken to surgery and placed in a supine position. The right neck and right upper chest were prepped and draped. Using ultrasound, the right internal jugular vein was located. Local was infiltrated over the site. The internal jugular vein was then cannulated with excellent blood return. Guidewire threaded readily into the internal jugular vein and into the vena cava. C-arm fluoroscopy was used and the guidewire was in the inferior vena cava. I then placed a clamp at roughly the position of the SVC/right atrial junction. I then used C-arm fluoroscopy to map out the course of the tunneled dura flow catheter that I planned. Counter incisions were marked on the chest. Local was infiltrated over these counter incisions and at the exit site of the guidewire. Incisions were made at each counter incision and at the guidewire exit site. I then used the tunneler and passed the dura flow catheter retrograde from the lower most incision to the upper chest incision and finally to the exit site of the guidewire. We then passed serial dilators over the guidewire using fluoroscopy. We passed then the dilator and sleeve over the guidewire and into the superior vena cava. The dilator and guidewire were removed. The dura flow catheter was then threaded through the sleeve and into the superior vena cava. We then removed the sleeve. I checked and slightly changed the position of the dura flow catheter so that there was a nice gentle curve and that the tip ended in the distal SVC right atrial junction. Both ports aspirated blood easily and irrigated well with heparin. Final flush was given and both ports were capped. We then closed all the counter incisions with subcuticular 4-0 Vicryl suture. Additional local was administered and 3-0 nylon was used to suture the catheter to the skin. The counter incisions were dressed with Exofin surgical adhesive. The exit site was dressed with the typical dialysis catheter dressing. Patient was then awakened and taken to recovery in good condition. I reviewed the preliminary chest x-ray films and they looked fine. Estimated Blood Loss -10 Urine Output 175 Drains No Packing No Pathology None sent Complications None Condition Stable Disposition PACU [facility] Billing Surgery - Charge Forward: Surgery Billing (Placement tunneled dura flow central venous catheter using ultrasound and under fluoroscopy)
--- NOTE | 2024-12-07 18:15 | PC.NURSE ---
Returned from OR per [ bed]. Report received from [AGGIE Bravo].
--- NOTE | 2024-12-07 18:46 | P.CONNEU_ITS ---
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 However MRI of the brain did not show any acute infarct in the DWI sequence. Clinically also I do not see anything suggest that and hence the changes in mental status would most likely from the metabolic encephalopathy due to multiple medical problems including kidney failure and a pneumonia. (2) Metabolic encephalopathy: Code(s): G93.41 - Metabolic encephalopathy Status: Acute (3) Type 2 diabetes mellitus: Qualifiers: Diabetes mellitus joint terminal attack controller insulin use: with joint terminal attack controller use Diabetes mellitus complication status: with hypoglycemia Diabetes mellitus complication detail: without coma Qualified Code(s): E11.649 - Type 2 diabetes mellitus with hypoglycemia without coma; Z79.4 - [facility]FP (current) use of insulin Code(s): E11.9 - Type 2 diabetes mellitus without complications Status: Chronic (4) Acute kidney injury superimposed on CKD: Code(s): N17.9 - Acute kidney failure, unspecified; N18.9 - Chronic kidney disease, unspecified Status: Acute (5) Sepsis associated hypotension: Code(s): A41.9 - Sepsis, unspecified organism; I95.9 - Hypotension, unspecified Status: Acute (6) Multifocal pneumonia: Code(s): J18.8 - Other pneumonia, unspecified organism Status: Acute Plan As a discussed above the patient should be continued on treatment for underlying pneumonia and Renal failure. He did improve with dialysis low on the last occasion. I believe this is still being carried out. I shall be glad to follow up from neurologic point of view on as-needed basis. Consult date: 12/07/24 HPI: Brent Higginbotham is a 69 year old male With history of right CVA and left faith plegia and chronic kidney disease currently on dialysis was seen with regard to evaluation for changes in mental status. I saw him last on 11/18/2024 on previous admission. He was treated the hemodialysis and with that he seems to have improved however his decline once again. He also has history of diabetes mellitus and has multifocal pneumonia. Is also hypotensive. CT scan of brain did not show any significant abnormalities. MRI of the brain was performed which shows area of encephalomalacia in the right hemisphere consistent with a right middle cerebral artery infarct. MRI did not show any acute infarct on the DWI sequence. Patient unable to offer any history at this time. Review of Systems 2 Review of Systems: ROS unobtainable: Yes unobtainable due to medical condition [facility] Past Medical History Medical History Chronic right arterial ischemic stroke, MCA (middle cerebral artery) Coronary artery disease Benign prostatic hyperplasia Tobacco abuse Chronic obstructive pulmonary disease Obstructive sleep apnea Intolerant of CPAP Hypertension Type 2 diabetes mellitus Cerebrovascular accident Surgical History Surgical History S/P total colectomy Laparoscopic subtotal colectomy with ileorectal anastomosis 12/25/[address] Uche Laurent at [facility] History of coronary artery stent placement History of cardiac catheterization Family History Family History Other Family history non-contributory Social History Social History Social History: Surrogate medical decision maker: Clarita Hobbs, mother. Code status: POLST signed 11/26/21 indicates DNR (Do not resusictate) with comfort-focused treatment Smoking packs per day: 1 Smoking cigarettes per day: 20.0 Years smoked: 50 Smoking pack-years: 50.00 Smoking status: Former smoker Tobacco type: cigarettes Alcohol intake: former Substance use: never Do You Feel Safe in your Home?: Yes Lack of Transportation: No Lack of Food: Never True Current Housing: I Have Housing Concerned About Future Housing: No Difficulty Paying Gas/Electric Bills: No Difficulty Paying for Meds: No Currently Unemployed: No Education: High School Diploma/GED Difficulty w/ Childcare or Family Care: No Additional living arrangements comments: Resident at [facility]. 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 Spiritual care concerns: No Meds Home Medications and Allergies Home Medications ?Medication ?Instructions ?Recorded ?Confirmed ?Type acetaminophen 325 mg tablet 650 mg PO Q8H PRN Pain, Mild 11/07/23 12/04/24 History albuterol sulfate 90 mcg/actuation 2 puff inhalation Q4H PRN Wheezing 11/07/23 12/04/24 History aerosol inhaler aspirin 81 mg tablet,delayed 81 mg PO DAILY 11/07/23 12/04/24 History release cabergoline 0.5 mg tablet 1 mg PO 2XW 11/07/23 12/04/24 History carboxymethylcellulose sodium 0.5 1 drp EACH EYE QID PRN Dry Eyes 11/07/23 12/04/24 History % eye drops in a dropperette (Refresh Plus) carvedilol 3.125 mg tablet 3.125 mg PO BID 11/07/23 12/04/24 History dextromethorphan-guaifenesin 10 10 ml PO Q4-6H PRN Cough 11/07/23 12/04/24 History mg-100 mg/5 mL oral syrup escitalopram oxalate 20 mg tablet 10 mg PO QAM 11/07/23 12/04/24 History gabapentin 100 mg capsule 100 mg PO TID 11/07/23 12/04/24 History glipizide 5 mg tablet 5 mg PO QAM 11/07/23 12/04/24 History loperamide 2 mg capsule 2 mg PO Q6H PRN Diarrhea 11/07/23 12/04/24 History (Anti-Diarrheal (loperamide)) melatonin 5 mg tablet 5 mg PO HS 11/07/23 12/04/24 History ondansetron 4 mg disintegrating 4 mg PO Q4H PRN Nausea And Vomiting 11/07/23 12/04/24 History tablet rosuvastatin 40 mg tablet 40 mg PO QHS 11/07/23 12/04/24 History sennosides 8.6 mg tablet (Senokot) 8.6 mg PO PRN PRN Constipation 11/07/23 12/04/24 History tiotropium bromide 2.5 2 puff inhalation QAM 11/07/23 12/04/24 History mcg/actuation mist for inhalation (Spiriva Respimat) benzonatate 100 mg capsule 100 mg PO TID PRN cough 05/16/24 12/04/24 History brinzolamide 1 %-brimonidine 0.2 % 1 drp EACH EYE TID 05/18/24 12/04/24 History eye drops,suspension (Simbrinza) budesonide 160 mcg-glycopyr 9 2 inh inhalation BID 05/18/24 12/04/24 History mcg-formot 4.8 mcg/actuation HFA inhaler (Breztri Aerosphere) oxycodone 5 mg tablet 5 mg PO Q12H pain 05/18/24 12/04/24 History insulin aspart U-100 100 unit/mL 1 sliding scale dose subcut 05/20/24 12/04/24 Rx (3 mL) subcutaneous pen (Novolog USEASDIRECTD #15 mL FlexPen U-100 Insulin aspart) insulin glargine 100 unit/mL 15 unit (0.15 mL) subcut HS 15 05/20/24 12/04/24 Rx subcutaneous solution (Lantus days #2.25 mL U-100 Insulin) cholestyramine 4 gram oral powder 4 g PO TID 11/13/24 12/04/24 History lidocaine 5 % topical patch 1 patch topical DAILY back pain 11/13/24 12/04/24 History psyllium husk 0.4 gram capsule 0.4 g PO DAILY PRN constipation 11/13/24 12/04/24 History (Fiber (psyllium husk)) duloxetine 20 mg capsule,delayed 20 mg PO DAILY 12/04/24 12/04/24 History release sprinkle (Drizalma Sprinkle) ipratropium 0.5 mg-albuterol 3 mg 3 ml inhalation TID 12/04/24 12/04/24 History (2.5 mg base)/3 mL nebulization soln memantine 5 mg tablet (Namenda) 5 mg PO DAILY 12/04/24 12/04/24 History mirtazapine 7.5 mg tablet 7.5 mg PO HS 12/04/24 12/04/24 History tamsulosin 0.4 mg capsule (Flomax) 0.4 mg PO DAILY 12/04/24 12/04/24 History Allergies Allergy/AdvReac Type Severity Reaction Status Date / Time hydralazine AdvReac Vomiting Verified 12/04/24 01:33 lisinopril AdvReac Rash Verified 12/04/24 01:33 metformin AdvReac Diarrhea Verified 12/04/24 01:33 pioglitazone AdvReac Nausea Verified 12/04/24 01:33 simvastatin AdvReac Rash Verified 12/04/24 01:33 Vital Signs Vital Signs - 24 hr 12/06/24 20:00 12/06/24 20:00 12/06/24 20:02 Temperature 97.7 F Pulse Rate 60 75 69 Respiratory Rate 21 H Blood Pressure 124/40 L Pulse Oximetry 93 98 Oxygen Delivery Nasal Cannula Oxygen Flow Rate 5 12/06/24 22:00 12/06/24 22:05 12/06/24 22:15 Temperature Pulse Rate 62 62 63 Respiratory Rate 16 16 Blood Pressure Pulse Oximetry Oxygen Delivery Oxygen Flow Rate 12/06/24 22:20 12/06/24 23:29 12/06/24 23:35 Temperature 98.2 F Pulse Rate 62 54 L 63 Respiratory Rate 16 23 H Blood Pressure 117/35 L Pulse Oximetry 95 96 96 Oxygen Delivery High Flow Nasal Cannula High Flow Nasal Cannula Oxygen Flow Rate 4 4 12/07/24 00:52 12/07/24 02:00 12/07/24 03:13 Temperature 98.4 F Pulse Rate 74 70 Respiratory Rate 22 H Blood Pressure 122/45 L Pulse Oximetry 94 95 Oxygen Delivery High Flow Nasal Cannula Oxygen Flow Rate 3 12/07/24 03:28 12/07/24 04:00 12/07/24 06:00 Temperature Pulse Rate 60 60 61 Respiratory Rate Blood Pressure Pulse Oximetry 95 Oxygen Delivery High Flow Nasal Cannula Oxygen Flow Rate 3 12/07/24 06:10 12/07/24 06:18 12/07/24 06:20 Temperature Pulse Rate 63 62 63 Respiratory Rate 18 18 18 Blood Pressure Pulse Oximetry 97 Oxygen Delivery High Flow Nasal Cannula Oxygen Flow Rate 3 12/07/24 08:00 12/07/24 08:00 12/07/24 08:00 Temperature 98.2 F Pulse Rate 63 63 57 L Respiratory Rate 18 18 Blood Pressure 125/48 L Pulse Oximetry 95 95 Oxygen Delivery High Flow Nasal Cannula Oxygen Flow Rate 3 12/07/24 10:00 12/07/24 12:00 12/07/24 12:00 Temperature 98.1 F Pulse Rate 62 60 60 Respiratory Rate 24 H 24 H Blood Pressure 111/52 L Pulse Oximetry 98 98 Oxygen Delivery High Flow Nasal Cannula Oxygen Flow Rate 3 12/07/24 12:00 12/07/24 12:58 12/07/24 14:00 Temperature 98.5 F Pulse Rate 57 L 62 60 Respiratory Rate 16 Blood Pressure 117/52 L Pulse Oximetry 96 Oxygen Delivery Oxygen Flow Rate 12/07/24 17:11 12/07/24 17:26 12/07/24 17:41 Temperature 98 F Pulse Rate 67 61 64 Respiratory Rate 12 13 17 Blood Pressure 109/38 L 109/45 L 117/54 L Pulse Oximetry 98 98 100 Oxygen Delivery Nasal Cannula Nasal Cannula Nasal Cannula Oxygen Flow Rate 4 4 4 12/07/24 17:55 12/07/24 18:15 12/07/24 18:30 Temperature Pulse Rate 66 68 71 Respiratory Rate 17 Blood Pressure 108/63 115/47 L 124/44 L Pulse Oximetry 100 91 100 Oxygen Delivery Nasal Cannula Oxygen Flow Rate 4 Exam 2 Narrative: The patient responds to deep painful stimuli however tends to keep his eyes closed. Does not respond to verbal stimuli. He has stiffness on the left side of the body and possible flattening of the left nasolabial fold. No involuntary movements are seen at this time. Results Labs 12/07/24 05:51 12/07/24 05:51 Labs: Short CBC 12/07/24 Range/Units 05:51 WBC 11.8 H (4.5-10.0) K/mm3 Hgb 7.1 L (14.0-18.0) g/dL Hct 25.1 L (42.0-52.0) % Plt Count 150 (150-375) k/mm3 BMP 12/07/24 05:51 Sodium 138 Potassium 3.8 Chloride 110 H Carbon Dioxide 18 L BUN 49 H Creatinine 5.92 H Glucose 90 Calcium 8.7 Liver Function 12/07/24 Range/Units 05:51 Total Bilirubin 0.8 (0.2-1.3) mg/dL AST 27 (17-59) U/L ALT 13 (6-50) U/L Alkaline Phosphatase 137 H (38-126) U/L Albumin 3.3 L (3.5-5.1) g/dL
[2024-12-07] MEDS: MORPHINE SULFATE (*CRX) 2 MG/ML INJ IV PUSH (19:50)
[2024-12-08] VITALS (39 sets, daily range): BP systolic 85–150; BP diastolic 45–66; PULSE 60–92; RESP 16–24; TEMP 36.1–37.8; O2SAT 94–100
[2024-12-08] MEDS: DOXYCYCLINE IV 100 MG in SODIUM CHLORIDE 0.9% IV 100 ML IVPB ×2 (03:08→15:50)
[2024-12-08 04:25] LABS: Hematocrit 23.7 % (42.0-52.0); Hemoglobin 7.2 g/dL (14.0-18.0); Mean Corpuscular HGB Conc 30.4 g/dl (32-36); Mean Corpuscular Hemoglobin 27.9 pg (26-34); Mean Corpuscular Volume 91.9 fl (80-100); Platelet Count Result 180 k/mm3 (150-375); Red Blood Count 2.58 M/mm3 (4.6-6.20); White Blood Count 10.5 K/mm3 (4.5-10.0)
[2024-12-08 04:49] LABS: Alanine Aminotransferase 10 U/L (6-50); Albumin Level 3.5 g/dL (3.5-5.1); Alkaline Phosphatase 128 U/L (38-126); Anion Gap 14 mmol/L (4-12); Aspartate Amino Transferase 20 U/L (17-59); Bilirubin,Total 0.5 mg/dL (0.2-1.3); Blood Urea Nitrogen 55 mg/dL (9-20); Calcium 9.0 mg/dL (8.4-10.2); Carbon Dioxide 20 mmol/L (22-30); Chloride 113 mmol/L (98-107); Estimated CRCL calculation 12 ml/min; Estimated Glomerular Filt Rate 8; Glucose 73 mg/dL (65-110); Potassium 3.6 mmol/L (3.4-5.0); Sodium 147 mmol/L (137-145); Total Protein 5.9 g/dL (6.3-8.2)
[2024-12-08] MEDS: PIPERACILLIN/TAZOBACTAM SOD 2.25 GM in SODIUM CHLORIDE 0.9% IV 50 ML 100 ML IVPB ×3 (05:30→21:05)
[2024-12-08] MEDS: ALBUMIN HUMAN 25% 25 GM/100 ML 100 ML IVPB (05:32)
[2024-12-08] MEDS: BRIMONIDINE TARTRATE 0.2% OP SOLN 5 ML BTL 1 DROP EACH EYE ×3 (05:33→21:05)
[2024-12-08] MEDS: BRINZOLAMIDE 1% OPHTH SUSP 10 ML 1 DROP EACH EYE ×3 (05:33→21:05)
[2024-12-08] MEDS: MORPHINE SULFATE (*CRX) 2 MG/ML INJ IV PUSH ×3 (05:57→21:10)
--- NOTE | 2024-12-08 09:09 | PCNEURO ---
Entered room to perform EEG. Pt is currently in dialysis.
--- NOTE | 2024-12-08 09:42 | P.PNNP_ITS ---
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 [facility]/dialysis x 2 sessions * discharge creatinine was 3.66mg/dl (on 11/24/24) * admission creatinine 4.6mg/dl * suspect multifactorial etiology: * possible prerenal factors * insensible losses (due to high fevers) * hypotension/hemodynamic instability * infection/early sepsis (pneumonia + UTI) * other(?) * evaluation to date noted: * CT of C/A/P noted - mild to moderate bilateral renal atrophy * urine electrolytes (by FeUrea) prerenal * urine eosinophils negative * UA suggestive of infection * proteinuria noted * CPK elevated but not enough to affect kidney function * no critical electrolytes, but he has a mild acidosis, anemia, and encephalopathy * however, given the possible concern that AMS maybe secondary to BRYCE, will proceed with dialysis * s/p tunneled HD catheter placement (on 12/07) * HD today and likely again tomorrow * follow trend of repeat labs and UOP for potential renal recovery (2) Hypotension: Qualifiers: Hypotension type: hypotension due to hypovolemia Qualified Code(s): E 86.1 - Hypovolemia Code(s): I95.9 - Hypotension, unspecified Status: Acute Assessment and Plan: * clinically better * noted in ER/upon presentation * early sepsis(?) on top of possible volume depletion(?) * improvement noted following IVF bolus * holding BP medications * IVFs and IV albumin on hold * follow trend of hemodynamics (3) Acute hypoxic respiratory failure: Code(s): J96.01 - Acute respiratory failure with hypoxia Status: Acute Assessment and Plan: * presumably due to pneumonia * requiring supplemental oxygen * follow respiratory status * monitor for fluid overload (4) Altered mental status: Code(s): R41.82 - Altered mental status, unspecified Status: Acute Assessment and Plan: * waxing and waning * presumably due to infection +/- BRYCE * head CT negative in ER * repeat CT of head (12/05) and MRI of brain negative * recent LP on last admission with CSF results noted * Neurology recommendations noted * follow mentation (5) Pneumonia: Code(s): J18.9 - Pneumonia, unspecified organism Status: Acute Assessment and Plan: * as noted by imaging on admission * follow cultures * follow respiratory status * on antibiotics (6) Urinary tract infection: Code(s): N39.0 - Urinary tract infection, site not specified Status: Acute Assessment and Plan: * suggested by admission UA * however, has chronic linton catheter * this was exchanged in the ER * follow culture data - negative to date * on antibiotics (7) Anemia: Code(s): D64.9 - Anemia, unspecified Status: Acute Assessment and Plan: * due to BRYCE/ARF, CKD(?), and acute illness * Epogen with DH * follow trend of H/H (8) Type 2 diabetes mellitus: Qualifiers: Diabetes mellitus complication detail: without coma Diabetes mellitus complication status: with hypoglycemia Diabetes mellitus custodial insulin use: with buttermaker helper use Qualified Code(s): E11.649 - Type 2 diabetes mellitus with hypoglycemia without coma; Z79.4 - senior living (current) use of insulin Code(s): E11.9 - Type 2 diabetes mellitus without complications Status: Chronic Assessment and Plan: * issues with hypoglyemia prior to admission noted * follow accu-cheks * glycemic control per hospitalist Will continue to follow. L Subjective Date/time seen: 12/08/24 09:42 Interval history: Follow-up for acute kidney injury/acute renal failure (on chronic kidney disease?) S/P tunneled HD catheter placement late yesterday afternoon and tolerated this procedure reasonably well; tolerating dialysis treatment at the time of my visit (seen on HD at 9:30am); remains encephalopathic/altered with on/off grunting/mumbling with no response to questions or commands; hemodynamics appear stable but still not making much urine with associated rising BUN and creatinine since admission; Exam 2 Narrative: General: large but ill-appearing male in NAD Heart: normal S1 and S2; no rub Lungs: coarse breath sounds Abdomen: obese with positive bowel sounds Extremities: no cyanosis or clubbing; + UE edema Skin: no nodules Objective Data Vital Signs Vital Signs: Vital Signs Temp Pulse Resp BP Pulse Ox O2 Del Method O2 Flow Rate 12/08/24 09:30 70 110/59 L 12/08/24 09:15 69 116/56 L 12/08/24 08:57 64 114/56 L 12/08/24 08:57 4 12/08/24 08:50 97.7 F 68 24 H 115/53 L 99 12/08/24 08:00 66 12/08/24 08:00 Nasal Cannula 5 12/08/24 08:00 97 F L 66 16 121/58 L 100 12/08/24 06:00 60 12/08/24 05:15 97.7 F 66 22 H 111/46 L 98 12/08/24 04:00 63 12/08/24 03:51 100 Nasal Cannula 3 12/08/24 02:00 70 12/08/24 00:10 97.6 F 65 24 H 116/47 L 100 12/08/24 00:00 67 12/08/24 00:00 96 Nasal Cannula 3 12/07/24 22:00 65 12/07/24 21:11 62 14 12/07/24 21:06 64 14 12/07/24 21:06 96 Nasal Cannula 3 12/07/24 20:00 59 L 12/07/24 20:00 93 High Flow Therapy with Na 3 12/07/24 20:00 70 95/32 L 98 12/07/24 18:58 69 123/40 L 98 12/07/24 18:30 71 124/44 L 100 12/07/24 18:15 68 115/47 L 91 12/07/24 17:55 66 17 108/63 100 Nasal Cannula 4 12/07/24 17:41 64 17 117/54 L 100 Nasal Cannula 4 12/07/24 17:26 61 13 109/45 L 98 Nasal Cannula 4 12/07/24 17:11 98 F 67 12 109/38 L 98 Nasal Cannula 4 12/07/24 14:00 60 12/07/24 12:58 98.5 F 62 16 117/52 L 96 12/07/24 12:00 57 L 12/07/24 12:00 60 24 H 98 High Flow Nasal Cannula 3 12/07/24 12:00 98.1 F 60 24 H 111/52 L 98 Intake/Output Intake/Output: Intake & Output 12/05/24 12/06/24 12/07/24 12/08/24 23:59 23:59 23:59 23:59 Intake Total 1550 700 800 200 Output Total 175 275 240 25 Balance 1375 425 560 175 Meds/Results Medications: Active Medications Generic Name Dose Route Start Last Admin Trade Name Freq PRN Reason Stop Dose Admin Acetaminophen 650 mg 12/04/24 01:55 Acetaminophen 650 Mg Suppository RECTAL Q6H PRN Mild Pain (1-3) or Fever Acetaminophen 650 mg 12/05/24 08:39 Acetaminophen 325 Mg Tablet PO Q8H PRN Pain, Mild Albuterol 2 puff 12/04/24 14:20 Albuterol Sulfate (*Sp) Aerosol 1 Puff INHALATION Q4HRT PRN Wheezing Albuterol/Ipratropium 3 ml 12/05/24 14:00 12/08/24 08:54 Ipratropium 0.5 Mg/Albuterol Sulfate 2.5 Mg Ampul.Neb 3 Ml INHALATION Not Given TIDRT BERNARDO Artificial Tears 1 drop 12/05/24 08:48 Artificial Tears Ophth Soln 15 Ml Bottle EACH EYE QID PRN Dry Eye(s) Aspirin 300 mg 12/07/24 09:00 12/07/24 09:40 Aspirin 300 Mg Suppository RECTAL 300 mg DAILY BERNARDO Administration Benzonatate 100 mg 12/05/24 08:39 Benzonatate 100 Mg Capsule PO TID PRN cough Brimonidine Tartrate 1 drop 12/05/24 14:00 12/08/24 05:33 Brimonidine Tartrate 0.2% Op Soln 5 Ml Btl EACH EYE 1 drop Q8HR BERNARDO Administration Brinzolamide 1 drop 12/05/24 14:00 12/08/24 05:33 Brinzolamide 1% Ophth Susp 10 Ml EACH EYE 1 drop Q8HR BERNARDO Administration Carvedilol 3.125 mg 12/05/24 08:00 12/07/24 09:01 Carvedilol 3.125 Mg Tablet PO Not Given BIDWM BERNARDO Dextrose 12.5 gm 12/04/24 00:50 12/05/24 13:05 Dextrose 50% 25 Gm/50 Ml Syringe IV PUSH 12.5 gm PRN PRN Administration Hypoglycemia Protocol Epoetin Julien-epbx 20,000 units 12/08/24 18:00 Epoetin Julien-Epbx 20,000 Units/Ml Vial IV PUSH 12/08/24 18:01 ONCE ONE Escitalopram Oxalate 10 mg 12/05/24 09:00 12/05/24 10:29 Escitalopram Oxalate 10 Mg Tablet PO Not Given QAM BERNARDO Fluticasone/Umeclidinium/Vilanterol 1 puff 12/05/24 09:00 12/07/24 07:55 Fluticasone/Umeclidin/Vilanter 100-62.5-25 Mcg Ellipta INHALATION Not Given DAILY BERNARDO Glucose 15 gm 12/04/24 00:50 Glucose Oral Gel 15 Gm Of Glucse In 37.5 Gm Tube PO PRN PRN Hypoglycemia Protocol Heparin Sodium (Porcine) 5,000 units 12/04/24 14:00 12/08/24 05:32 Heparin Sodium 5,000 Units/Ml Vial SUB-Q 5,000 units Q8HR BERNARDO Administration Dextrose 1,000 mls @ 100 mls/hr 12/04/24 00:50 Dextrose 5% 1,000 Ml IVPB PRN PRN Hypoglycemia Protocol Doxycycline Hyclate 100 mg/ 100 mls @ 100 mls/hr 12/04/24 16:00 12/08/24 04:08 Sodium Chloride IVPB 12/09/24 04:59 Infused Q12H BERNARDO Infusion Piperacillin Sod/Tazobactam 50 mls @ 100 mls/hr 12/06/24 13:00 12/08/24 05:30 Sod 2.25 gm/ Sodium Chloride IVPB 100 mls/hr Q8HR BERNARDO Administration Albumin Human 50 mls @ 999 mls/hr 12/08/24 06:29 Albutein IVPB 01/07/25 06:28 Q10M PRN HYPOTENSION Insulin Aspart 2 - 5 units 12/07/24 12:00 12/08/24 07:43 Insulin Aspart (*Bkc) 100 Units/Ml SUB-Q Not Given Q6HR BERNARDO Protocol Lidocaine 1 patch 12/05/24 09:00 12/08/24 07:44 Lidocaine 5% Patch TOPICAL Not Given DAILY BERNARDO Loperamide HCl 2 mg 12/05/24 08:39 Loperamide Hcl 2 Mg Capsule PO Q6H PRN Diarrhea Metoprolol Tartrate 2.5 mg 12/07/24 11:12 Metoprolol Tartrate Inj 5 Mg/5 Ml Vial IV PUSH Q6H PRN Tachycardia Mirtazapine 7.5 mg 12/04/24 21:00 12/04/24 21:23 Mirtazapine 7.5 Mg Tablet PO 7.5 mg HS BERNARDO Administration Morphine Sulfate 2 mg 12/07/24 19:35 12/08/24 05:57 Morphine Sulfate (*Crx) 2 Mg/Ml Inj IV PUSH 2 mg Q4H PRN Administration Pain Rated 7-10 Oxycodone HCl 5 mg 12/04/24 14:02 12/04/24 21:24 Oxycodone Hcl (*Crx) 5 Mg Tab Ir PO 5 mg Q12HR PRN Administration Pain Rated 7-10 Tamsulosin HCl 0.4 mg 12/05/24 09:00 12/07/24 09:01 Tamsulosin Hcl 0.4 Mg Capsule PO Not Given DAILY [facility] Umeclidinium [place] 1 puff 12/05/24 08:00 12/05/24 12:04 Umeclidinium [place] 62.5 Mcg Ellipta INHALATION [facility] Results: ITS Impressions Chest/Abdomen/Pelvis CT 12/04/24 07:39 IMPRESSION: 1. Left lower lobe pneumonia. 2. Mild to moderate bilateral renal atrophy with bilateral renal stents in expected position and similar pattern of increased density in the bilateral renal collecting systems which could represent either small residual excreted contrast as a recent contrast utilization or stones/stone fragments. Head CT 12/05/24 18:02 IMPRESSION: No acute intracranial process. Results reported telephonically to Kareen Avila RN by Dr. Medrano at 6:06 PM on 12/05/2024. Venous Doppler Study 12/05/24 20:05 IMPRESSION: Right cephalic DVT. No DVT detected in the left upper extremity. Brain MRI 12/06/24 12:55 IMPRESSION: 1. No significant change in chronic infarcts, the largest involving the plantar to the right middle cerebral and portions of the anterior cerebral artery vascular distribution. No acute intracranial process. 2. Unchanged significant decrease in caliber of the flow void at the right internal carotid artery which could be related to atherosclerosis and stenosis or decreased perfusion requirement secondary to the extensive infarction in the right cerebral hemisphere. Chest X-Ray 12/07/24 17:37 IMPRESSION: Mild pulmonary vascular congestion with a small left-sided pleural effusion. Right internal jugular tunnelled hemodialysis catheter in position and ready for immediate use. Labs Labs: Laboratory Tests 12/08/24 04:16 12/08/24 04:16 Calcium 9.0 Total Bilirubin 0.5 AST 20 ALT 10 Alkaline Phosphatase 128 H Total Protein 5.9 L Albumin 3.5 Microbiology 12/03/24 17:52 Blood Blood Culture - Preliminary 12/04/24 04:34 Blood Blood Culture - Preliminary
[2024-12-08] MEDS: ALBUMIN HUMAN 25% 12.5 GM/50ML 50 ML 100 GM (10:56)
[2024-12-08] MEDS: EPOETIN ALFA-EPBX 20,000 UNITS/ML VIAL 20000 UNITS IV PUSH (11:56)
--- NOTE | 2024-12-08 13:18 | PM.IMPN ---
Progress Note: A&P Assessment and Plan (1) Multifocal pneumonia: Code(s): J18.8 - Other pneumonia, unspecified organism Status: Acute (2) Sepsis: Code(s): A41.9 - Sepsis, unspecified organism Status: Acute (3) Sepsis associated hypotension: Code(s): A41.9 - Sepsis, unspecified organism; I95.9 - Hypotension, unspecified Status: Acute Plan Sepsis LLL Pnuemonia vs UTI HAP, recent hospitalization CT chest reviewed Blood/Urine culture unremarkable Zosyn and Doxycycline MRSA negative UTI complicated Follow urine culture on Zosyn Acute hypoxemic resp failure pneumonia on 4 liters oxygen continue above care and titrate oxygen Recent acute renal failure creatinine peaking to 7 was down to 3.6 at discharge dialysis was discontinued. Readmission with creatinine of 4.6 and continues to incline. Nephrology consulted continue albumin likely needs initiation of renal replacement therapy Underwent HD catheter placement yesterday. Underwent dialysis today. nephrology team on board acute onset ams with ?facial droop: ct head was negative. MRI neg neurology team on board. Continue with aspirin ? seizure. no prior history. lactate was nromal. EEG pending neurology team on board right cephalic vein thrombosis. on dvt proph. this is superficial vein thrombosis. continue conservative mgmt DM2 SSi with accucheks Hypertension: Blood pressure on soft diet. Continue to monitor acute Chronic anemia no signs of bleeding continue to monitor may need Epogen, defer to nephrology team Recent partial small-bowel obstruction/hydrops gallbladder Mildly obstructing left ureteral calculus and right renal stones status post cystoscopy bilateral retrograde left ureteroscopy stone extraction bilateral ureteral stent placement 11/16/2024 and [place] catheter placement. urology team on board. DVT prophylaxis on Sq Heparin Subjective Date/time seen: 12/08/24 13:18 Interval history: Patient was seen and examined at bedside. he is unresponsive. had ? seizure activity per his nurse. will get EEG and ct head. neurology team on board. Nephrology team on board. plan for HD catheter placement and starting HD. Continue ZOsyn and DOxy for sepsis possible pneumonia vs UTI. follow culture results Resp failure. pneumonia vs COPD exacerbation. continue IvAbx concern for TIA. MRI neg. ?Seizure: will get EEG, CT head Anemia in setting of infection and kidney failure. continue to monitor. may need Epogen 12/09/24 Patient was seen examined at bedside. He underwent hemodialysis today. still unresponsive except for pain stimuli. Had normal bowel movement yesterday and today. Lab test WBC 10.5, hemoglobin 7.2, creatinine 7.04. Chest x-ray showed mild pulmonary edema. MRI negative for acute changes. Blood culture and urine culture unremarkable. Patient underwent hemodialysis today. Will put NG tube and restart tube feeding per dietitian recommendation. Review of Systems Review of Systems: All systems reviewed & are unremarkable except as noted in HPI and below (Subjective/HPI) ROS unobtainable: Yes unobtainable due to medical condition and unobtainable due to mental status Exam Narrative: GENERAL: Ill-appearing,somnolent, mumbles HEAD: Normocephalic, atraumatic. EYES: Non injected, non icteric. Pin point pupil on the R. Asymmetric pupil 4mm on the left, non reactive. Matted eyes ENT: No epistaxis. Dry mucous membranes NECK: Supple. CHEST: Poor air movement no respiratory distress, coarse breath sounds bilaterlaly HEART: Regular rate and rhythm. . ABDOMEN: Soft, nondistended. No rigidity or guarding SKIN: Dry, no rash. NEURO: somnolent, mumbles Extremities: Swollen upper extremities bilaterally which is slighlty better today Const: Other: Nonverbal. Grimacing to painful stimuli HENMT: Mouth: Yes dry mucous membranes Resp: Other: Coarse upper airway sounds with upper airway congestion Cardio: Rate: regular rate Rhythm: regular rhythm Extrem: Other: Trace pitting edema bilateral lower extremity below-knee Objective Data Vital Signs Vital Signs: Vital Signs - 24 hr 12/07/24 14:00 12/07/24 17:11 12/07/24 17:26 Temperature 98 F Pulse Rate 60 67 61 Respiratory Rate 12 13 Blood Pressure 109/38 L 109/45 L Pulse Oximetry 98 98 Oxygen Delivery Nasal Cannula Nasal Cannula Oxygen Flow Rate 4 4 Fraction of Inspired Oxygen 12/07/24 17:41 12/07/24 17:55 12/07/24 18:15 Temperature Pulse Rate 64 66 68 Respiratory Rate 17 17 Blood Pressure 117/54 L 108/63 115/47 L Pulse Oximetry 100 100 91 Oxygen Delivery Nasal Cannula Nasal Cannula Oxygen Flow Rate 4 4 Fraction of Inspired Oxygen 12/07/24 18:30 12/07/24 18:58 12/07/24 20:00 Temperature Pulse Rate 71 69 70 Respiratory Rate Blood Pressure 124/44 L 123/40 L 95/32 L Pulse Oximetry 100 98 98 Oxygen Delivery Oxygen Flow Rate Fraction of Inspired Oxygen 12/07/24 20:00 12/07/24 20:00 12/07/24 21:06 Temperature Pulse Rate 59 L Respiratory Rate Blood Pressure Pulse Oximetry 93 96 Oxygen Delivery High Flow Therapy with Na Nasal Cannula Oxygen Flow Rate 3 3 Fraction of Inspired Oxygen 12/07/24 21:06 12/07/24 21:11 12/07/24 22:00 Temperature Pulse Rate 64 62 65 Respiratory Rate 14 14 Blood Pressure Pulse Oximetry Oxygen Delivery Oxygen Flow Rate Fraction of Inspired Oxygen 12/08/24 00:00 12/08/24 00:00 12/08/24 00:10 Temperature 97.6 F Pulse Rate 67 65 Respiratory Rate 24 H Blood Pressure 116/47 L Pulse Oximetry 96 100 Oxygen Delivery Nasal Cannula Oxygen Flow Rate 3 Fraction of Inspired Oxygen 12/08/24 02:00 12/08/24 03:51 12/08/24 04:00 Temperature Pulse Rate 70 63 Respiratory Rate Blood Pressure Pulse Oximetry 100 Oxygen Delivery Nasal Cannula Oxygen Flow Rate 3 Fraction of Inspired Oxygen 12/08/24 05:15 12/08/24 06:00 12/08/24 08:00 Temperature 97.7 F 97 F L Pulse Rate 66 60 66 Respiratory Rate 22 H 16 Blood Pressure 111/46 L 121/58 L Pulse Oximetry 98 100 Oxygen Delivery Oxygen Flow Rate Fraction of Inspired Oxygen 12/08/24 08:00 12/08/24 08:00 12/08/24 08:50 Temperature 97.7 F Pulse Rate 66 68 Respiratory Rate 24 H Blood Pressure 115/53 L Pulse Oximetry 99 Oxygen Delivery Nasal Cannula Oxygen Flow Rate 5 Fraction of Inspired Oxygen 40 12/08/24 08:57 12/08/24 08:57 12/08/24 09:15 Temperature Pulse Rate 64 69 Respiratory Rate Blood Pressure 114/56 L 116/56 L Pulse Oximetry Oxygen Delivery Oxygen Flow Rate 4 Fraction of Inspired Oxygen 12/08/24 09:30 12/08/24 09:45 12/08/24 10:00 Temperature Pulse Rate 70 84 85 Respiratory Rate Blood Pressure 110/59 L 147/63 H Pulse Oximetry Oxygen Delivery Oxygen Flow Rate Fraction of Inspired Oxygen 12/08/24 10:00 12/08/24 10:00 12/08/24 10:05 Temperature Pulse Rate 92 86 85 Respiratory Rate 18 18 Blood Pressure 133/62 Pulse Oximetry Oxygen Delivery Oxygen Flow Rate Fraction of Inspired Oxygen 12/08/24 10:15 12/08/24 10:19 12/08/24 10:30 Temperature Pulse Rate 85 76 Respiratory Rate Blood Pressure 99/51 L 85/45 L Pulse Oximetry 100 Oxygen Delivery High Flow Nasal Cannula Oxygen Flow Rate 6 Fraction of Inspired Oxygen 12/08/24 10:45 12/08/24 12:00 Temperature Pulse Rate 74 82 Respiratory Rate Blood Pressure 87/50 L Pulse Oximetry Oxygen Delivery Oxygen Flow Rate Fraction of Inspired Oxygen Intake/Output Intake/Output: Intake & Output 12/05/24 12/06/24 12/07/24 12/08/24 23:59 23:59 23:59 23:59 Intake Total 1550 700 800 200 Output Total 175 275 240 25 Balance 1375 425 560 175 Meds/Results Medications: Active Medications Generic Name Dose Route Start Last Admin Trade Name Freq PRN Reason Stop Dose Admin Acetaminophen 650 mg 12/04/24 01:55 Acetaminophen 650 Mg Suppository RECTAL Q6H PRN Mild Pain (1-3) or Fever Acetaminophen 650 mg 12/05/24 08:39 Acetaminophen 325 Mg Tablet PO Q8H PRN Pain, Mild Albuterol 2 puff 12/04/24 14:20 Albuterol Sulfate (*Sp) Aerosol 1 Puff INHALATION Q4HRT PRN Wheezing Albuterol/Ipratropium 3 ml 12/05/24 14:00 12/08/24 08:54 Ipratropium 0.5 Mg/Albuterol Sulfate 2.5 Mg Ampul.Neb 3 Ml INHALATION Not Given TIDRT BERNARDO Artificial Tears 1 drop 12/05/24 08:48 Artificial Tears Ophth Soln 15 Ml Bottle EACH EYE QID PRN Dry Eye(s) Aspirin 300 mg 12/07/24 09:00 12/07/24 09:40 Aspirin 300 Mg Suppository RECTAL 300 mg DAILY BERNARDO Administration Benzonatate 100 mg 12/05/24 08:39 Benzonatate 100 Mg Capsule PO TID PRN cough Brimonidine Tartrate 1 drop 12/05/24 14:00 12/08/24 05:33 Brimonidine Tartrate 0.2% Op Soln 5 Ml Btl EACH EYE 1 drop Q8HR BERNARDO Administration Brinzolamide 1 drop 12/05/24 14:00 12/08/24 05:33 Brinzolamide 1% Ophth Susp 10 Ml EACH EYE 1 drop Q8HR BERNARDO Administration Carvedilol 3.125 mg 12/05/24 08:00 12/07/24 09:01 Carvedilol 3.125 Mg Tablet PO Not Given BIDWM BERNARDO Dextrose 12.5 gm 12/04/24 00:50 12/05/24 13:05 Dextrose 50% 25 Gm/50 Ml Syringe IV PUSH 12.5 gm PRN PRN Administration Hypoglycemia Protocol Epoetin Julien-epbx 20,000 units 12/08/24 18:00 12/08/24 11:56 Epoetin Julien-Epbx 20,000 Units/Ml Vial IV PUSH 12/08/24 18:01 20,000 units ONCE ONE Administration Escitalopram Oxalate 10 mg 12/05/24 09:00 12/05/24 10:29 Escitalopram Oxalate 10 Mg Tablet PO Not Given QAM BERNARDO Fluticasone/Umeclidinium/Vilanterol 1 puff 12/05/24 09:00 12/07/24 07:55 Fluticasone/Umeclidin/Vilanter 100-62.5-25 Mcg Ellipta INHALATION Not Given DAILY BERNARDO Glucose 15 gm 12/04/24 00:50 Glucose Oral Gel 15 Gm Of Glucse In 37.5 Gm Tube PO PRN PRN Hypoglycemia Protocol Heparin Sodium (Porcine) 5,000 units 12/04/24 14:00 12/08/24 05:32 Heparin Sodium 5,000 Units/Ml Vial SUB-Q 5,000 units Q8HR BERNARDO Administration Dextrose 1,000 mls @ 100 mls/hr 12/04/24 00:50 Dextrose 5% 1,000 Ml IVPB PRN PRN Hypoglycemia Protocol Doxycycline Hyclate 100 mg/ 100 mls @ 100 mls/hr 12/04/24 16:00 12/08/24 04:08 Sodium Chloride IVPB 12/09/24 04:59 Infused Q12H BERNARDO Infusion Piperacillin Sod/Tazobactam 50 mls @ 100 mls/hr 12/06/24 13:00 12/08/24 05:30 Sod 2.25 gm/ Sodium Chloride IVPB 100 mls/hr Q8HR BERNARDO Administration Albumin Human 50 mls @ 999 mls/hr 12/08/24 06:29 Albutein IVPB 01/07/25 06:28 Q10M PRN HYPOTENSION Insulin Aspart 2 - 5 units 12/07/24 12:00 12/08/24 11:40 Insulin Aspart (*Bkc) 100 Units/Ml SUB-Q Not Given Q6HR [facility] Protocol Lidocaine 1 patch 12/05/24 09:00 12/08/24 07:44 Lidocaine 5% Patch TOPICAL Not Given DAILY [facility] Loperamide HCl 2 mg 12/05/24 08:39 Loperamide Hcl 2 Mg Capsule PO Q6H PRN Diarrhea Metoprolol Tartrate 2.5 mg 12/07/24 11:12 Metoprolol Tartrate Inj 5 Mg/5 Ml Vial IV PUSH Q6H PRN Tachycardia Mirtazapine 7.5 mg 12/04/24 21:00 12/04/24 21:23 Mirtazapine 7.5 Mg Tablet PO 7.5 mg HS [facility] Administration Morphine Sulfate 2 mg 12/07/24 19:35 12/08/24 05:57 Morphine Sulfate (*Crx) 2 Mg/Ml Inj IV PUSH 2 mg Q4H PRN Administration Pain Rated 7-10 Oxycodone HCl 5 mg 12/04/24 14:02 12/04/24 21:24 Oxycodone Hcl (*Crx) 5 Mg Tab Ir PO 5 mg Q12HR PRN Administration Pain Rated 7-10 Tamsulosin HCl 0.4 mg 12/05/24 09:00 12/07/24 09:01 Tamsulosin Hcl 0.4 Mg Capsule PO Not Given DAILY [facility] Umeclidinium [place] 1 puff 12/05/24 08:00 12/05/24 12:04 Umeclidinium [place] 62.5 Mcg Ellipta INHALATION [facility] Results: [facility] Impressions Chest/Abdomen/Pelvis CT 12/04/24 07:39 IMPRESSION: 1. Left lower lobe pneumonia. 2. Mild to moderate bilateral renal atrophy with bilateral renal stents in expected position and similar pattern of increased density in the bilateral renal collecting systems which could represent either small residual excreted contrast as a recent contrast utilization or stones/stone fragments. Head CT 12/05/24 18:02 IMPRESSION: No acute intracranial process. Results reported telephonically to Kareen Avila RN by Dr. Medrano at 6:06 PM on 12/05/2024. Venous Doppler Study 12/05/24 20:05 IMPRESSION: Right cephalic DVT. No DVT detected in the left upper extremity. Brain MRI 12/06/24 12:55 IMPRESSION: 1. No significant change in chronic infarcts, the largest involving the plantar to the right middle cerebral and portions of the anterior cerebral artery vascular distribution. No acute intracranial process. 2. Unchanged significant decrease in caliber of the flow void at the right internal carotid artery which could be related to atherosclerosis and stenosis or decreased perfusion requirement secondary to the extensive infarction in the right cerebral hemisphere. Chest X-Ray 12/07/24 17:37 IMPRESSION: Mild pulmonary vascular congestion with a small left-sided pleural effusion. Right internal jugular tunnelled hemodialysis catheter in position and ready for immediate use. Labs Labs: Laboratory Results - last 24 hr 12/07/24 12/07/24 12/08/24 12:43 17:31 00:16 WBC RBC Hgb Hct MCV MCH MCHC RDW Plt Count MPV Sodium Potassium Chloride Carbon Dioxide Anion Gap BUN Creatinine Estim Creat Clear Calc Estimated GFR Glucose POC Capillary Glucose 87 88 Calcium Total Bilirubin AST ALT Alkaline Phosphatase Total Protein Albumin Blood Type A Positive Antibody Screen Negative 12/08/24 12/08/24 04:16 13:14 WBC 10.5 H RBC 2.58 L Hgb 7.2 L Hct 23.7 L MCV 91.9 D MCH 27.9 MCHC 30.4 L RDW 15.7 H Plt Count 180 MPV 9.4 Sodium 147 H Potassium 3.6 Chloride 113 H Carbon Dioxide 20 L Anion Gap 14 H BUN 55 H Creatinine 7.04 H Estim Creat Clear Calc 12 Estimated GFR 8 L Glucose 73 POC Capillary Glucose 78 Calcium 9.0 Total Bilirubin 0.5 AST 20 ALT 10 Alkaline Phosphatase 128 H Total Protein 5.9 L Albumin 3.5 Blood Type Antibody Screen
[2024-12-08] MEDS: ASPIRIN 300 MG SUPPOSITORY RECTAL (13:24)
--- NOTE | 2024-12-08 13:31 | PCNFU ---
Nutrition Follow-Up Complete: Inadequate energy intake related to altered mental status as evidenced by NPO day 4 Meet estimated nutrition needs - Not meeting goal. Initiate tube feeding to progress to goal Goal: Pt current nutrition is NPO Nutrition recommendation: Enteral nutrition administration: Nepro @ 50 ml/h with flushes 100 ml q 4 h. To provide 1980 kcal, 89 g protein, 1400 ml total free water Last recorded weight is 109.5 kg. Bowel Motility: None Labs Reviewed: Hgb 7.2, Hct 23.7, Na 147, BUN 55. Cre 7.04 Meds Noted: remeron, Novolog Skin: Large DTI sacrum Additional Notes: Consulted by RN, pt is having NG tube inserted for tube feedings as mental status did not improve with dialysis. Nepro @ 50 ml/h to [id number] kcal, 89 g protein, 1400 ml total free water. Meets needs @ 18 kcal, 0.8 g protein. Adequate for needs for now; will need to increase if tube feeding is more long-term. Continue monitoring Monitoring mental status, diet orders, swallow ability, weights, labs, plan of care Follow up in 1 day
--- NOTE | 2024-12-08 13:37 | PCDIET ---
TUBE FEEDING ORDERS: Nepro @ 50 with flushes 100 q 4 h. To provide 1980 kcal, 89 g protein, 1400 ml total free water. Start at 20 ml/h and advance 10 ml q 4 h as tolerated.
[2024-12-08] MEDS: IPRATROPIUM 0.5 MG/ALBUTEROL SULFATE 2.5 MG AMPUL.NEB 3 ML INHALATION ×2 (14:02→20:30)
[2024-12-09] VITALS (42 sets, daily range): BP systolic 104–156; BP diastolic 44–72; PULSE 66–93; RESP 18–20; TEMP 36.4–38.4; O2SAT 93–99
[2024-12-09] MEDS: MORPHINE SULFATE (*CRX) 2 MG/ML INJ IV PUSH ×2 (01:09→10:29)
[2024-12-09] MEDS: DOXYCYCLINE IV 100 MG in SODIUM CHLORIDE 0.9% IV 100 ML IVPB (03:33)
[2024-12-09 04:51] LABS: Hematocrit 25.5 % (42.0-52.0); Hemoglobin 7.7 g/dL (14.0-18.0); Mean Corpuscular HGB Conc 30.2 g/dl (32-36); Mean Corpuscular Hemoglobin 27.7 pg (26-34); Mean Corpuscular Volume 91.7 fl (80-100); Platelet Count Result 164 k/mm3 (150-375); Red Blood Count 2.78 M/mm3 (4.6-6.20); White Blood Count 6.1 K/mm3 (4.5-10.0)
[2024-12-09] MEDS: BRINZOLAMIDE 1% OPHTH SUSP 10 ML 1 DROP EACH EYE ×3 (05:15→22:57)
[2024-12-09] MEDS: BRIMONIDINE TARTRATE 0.2% OP SOLN 5 ML BTL 1 DROP EACH EYE ×3 (05:15→22:57)
[2024-12-09 05:17] LABS: Alanine Aminotransferase 11 U/L (6-50); Albumin Level 3.6 g/dL (3.5-5.1); Alkaline Phosphatase 180 U/L (38-126); Anion Gap 11 mmol/L (4-12); Aspartate Amino Transferase 25 U/L (17-59); Bilirubin,Total 0.7 mg/dL (0.2-1.3); Blood Urea Nitrogen 36 mg/dL (9-20); Calcium 8.8 mg/dL (8.4-10.2); Carbon Dioxide 25 mmol/L (22-30); Chloride 103 mmol/L (98-107); Estimated CRCL calculation 18 ml/min; Estimated Glomerular Filt Rate 13; Glucose 139 mg/dL (65-110); Potassium 3.7 mmol/L (3.4-5.0); Sodium 139 mmol/L (137-145); Total Protein 5.9 g/dL (6.3-8.2)
[2024-12-09] MEDS: IPRATROPIUM 0.5 MG/ALBUTEROL SULFATE 2.5 MG AMPUL.NEB 3 ML INHALATION ×3 (07:36→20:31)
[2024-12-09] MEDS: SODIUM CHLORIDE 0.9% IV 1,000 ML 999 ML IV CONT (08:34)
--- NOTE | 2024-12-09 09:46 | P.PNNP_ITS ---
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 [employer] IN[employer]CTOR/dialysis x 2 sessions * discharge creatinine was 3.66mg/dl (on 11/24/24) * admission creatinine 4.6mg/dl * suspect multifactorial etiology: * possible prerenal factors * insensible losses (due to high fevers) * hypotension/hemodynamic instability * infection/early sepsis (pneumonia + UTI) * other(?) * evaluation to date noted: * CT of C/A/P noted - mild to moderate bilateral renal atrophy * urine electrolytes (by FeUrea) prerenal * urine eosinophils negative * UA suggestive of infection * proteinuria noted * CPK elevated but not enough to affect kidney function * no critical electrolytes, but he has a mild acidosis, anemia, and encephalopathy * however, given the possible concern that AMS maybe secondary to BRYCE, will proceed with dialysis * s/p tunneled HD catheter placement (on 12/07) * HD yesterday and today * follow trend of repeat labs and UOP for potential renal recovery (2) Hypotension: Qualifiers: Hypotension type: hypotension due to hypovolemia Qualified Code(s): E 86.1 - Hypovolemia Code(s): I95.9 - Hypotension, unspecified Status: Acute Assessment and Plan: * clinically better * noted in ER/upon presentation * early sepsis(?) on top of possible volume depletion(?) * s/p IVFs and IV albumin on hold * holding BP medications * follow trend of hemodynamics (3) Acute hypoxic respiratory failure: Code(s): J96.01 - Acute respiratory failure with hypoxia Status: Acute Assessment and Plan: * presumably due to pneumonia * requiring supplemental oxygen * follow respiratory status * monitor for fluid overload * fluid removal with HD to maintain euvolemia (4) Altered mental status: Code(s): R41.82 - Altered mental status, unspecified Status: Acute Assessment and Plan: * no significant improvement since admission * possibly due to infection +/- BRYCE; another possible CVA? * imaging noted * head CT negative in ER * repeat CT of head (12/05) and MRI of brain negative * recent LP on last admission with CSF results noted * MRI of brain (on 12/06): no significant change in chronic infarcts, the largest involving the plantar to the right middle cerebral and portions of the anterior cerebral artery vascular distribution; no acute intracranial process * Neurology recommendations noted * follow mentation (5) Pneumonia: Code(s): J18.9 - Pneumonia, unspecified organism Status: Acute Assessment and Plan: * as noted by imaging on admission * follow cultures - negative to date * follow respiratory status * on antibiotics (6) Urinary tract infection: Code(s): N39.0 - Urinary tract infection, site not specified Status: Acute Assessment and Plan: * suggested by admission UA * however, has chronic linton catheter * this was exchanged in the ER * follow culture data - negative to date * on antibiotics (7) Anemia: Code(s): D64.9 - Anemia, unspecified Status: Acute Assessment and Plan: * due to BRYCE/ARF, CKD(?), and acute illness * Epogen with HD * follow trend of H/H (8) Type 2 diabetes mellitus: Qualifiers: Diabetes mellitus complication detail: without coma Diabetes mellitus complication status: with hypoglycemia Diabetes mellitus tank terminal gauger insulin use: with tank terminal gauger use Qualified Code(s): E11.649 - Type 2 diabetes mellitus with hypoglycemia without coma; Z79.4 - 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 L Subjective Date/time seen: 12/09/24 09:46 Interval history: Follow-up for acute kidney injury/acute renal failure (on chronic kidney disease?) -- now requiring [facility]/hemodialysis. Tolerated dialysis treatment yesterday and tolerating dialysis treatment at the time of my visit (seen on HD at 9:35am); no significant change noted with regard to mental status/mentation -- remains unresponsive/obtunded; NG tube placed for nutritional support yesterday; still not making much urine; stable hemodynamics noted. Exam 2 Narrative: General: large but ill-appearing male in NAD; remains unresponsive Heart: normal S1 and S2; no rub Lungs: coarse breath sounds Abdomen: obese with positive bowel sounds Extremities: no cyanosis or clubbing; + UE edema Skin: warm and dry Objective Data Vital Signs Vital Signs: Vital Signs Temp Pulse Resp BP Pulse Ox O2 Del Method O2 Flow Rate 12/09/24 09:45 67 110/54 L 12/09/24 09:30 70 134/57 L 12/09/24 09:15 66 123/54 L 12/09/24 09:00 66 118/54 L 12/09/24 08:45 67 128/60 12/09/24 08:41 67 131/56 L 12/09/24 08:34 97.8 F 67 18 131/56 L 12/09/24 08:34 3 12/09/24 08:00 81 96 Nasal Cannula 3 12/09/24 07:45 74 20 12/09/24 07:36 69 20 12/09/24 07:36 93 Nasal Cannula 3 12/09/24 07:22 97.9 F 71 18 115/47 L 94 12/09/24 06:00 71 12/09/24 04:51 99.2 F 79 20 121/50 L 97 12/09/24 04:00 77 12/09/24 03:40 81 96 Nasal Cannula 3 12/09/24 02:00 69 12/09/24 00:00 72 12/08/24 23:57 67 95 Nasal Cannula 3 12/08/24 23:45 99.8 F H 69 22 H 137/49 L 95 12/08/24 22:00 78 12/08/24 20:40 95 Nasal Cannula 3 12/08/24 20:40 72 18 12/08/24 20:30 71 18 12/08/24 20:00 74 12/08/24 20:00 66 94 Nasal Cannula 3 12/08/24 20:00 100.0 F H 70 24 H 135/48 L 95 12/08/24 17:46 77 12/08/24 16:00 99.9 F H 77 24 H 140/53 L 100 12/08/24 16:00 68 12/08/24 16:00 72 18 100 High Flow Nasal Cannula 5 12/08/24 14:05 72 18 12/08/24 14:01 75 16 12/08/24 14:00 64 12/08/24 13:00 99.2 F 80 22 H 112/48 L 100 Intake/Output Intake/Output: Intake & Output 12/06/24 12/07/24 12/08/24 12/09/24 23:59 23:59 23:59 23:59 Intake Total 700 800 550 0 Output Total 275 240 675 5 Balance 425 560 -125 -5 Meds/Results Medications: Active Medications Generic Name Dose Route Start Last Admin Trade Name Freq PRN Reason Stop Dose Admin Acetaminophen 650 mg 12/04/24 01:55 Acetaminophen 650 Mg Suppository RECTAL Q6H PRN Mild Pain (1-3) or Fever Acetaminophen 650 mg 12/05/24 08:39 Acetaminophen 325 Mg Tablet PO Q8H PRN Pain, Mild Albuterol 2 puff 12/04/24 14:20 Albuterol Sulfate (*Sp) Aerosol 1 Puff INHALATION Q4HRT PRN Wheezing Albuterol/Ipratropium 3 ml 12/05/24 14:00 12/09/24 07:36 Ipratropium 0.5 Mg/Albuterol Sulfate 2.5 Mg Ampul.Neb 3 Ml INHALATION 3 ml TIDRT BERNARDO Administration Artificial Tears 1 drop 12/05/24 08:48 Artificial Tears Ophth Soln 15 Ml Bottle EACH EYE QID PRN Dry Eye(s) Aspirin 300 mg 12/07/24 09:00 12/08/24 13:24 Aspirin 300 Mg Suppository RECTAL 300 mg DAILY BERNARDO Administration Benzonatate 100 mg 12/05/24 08:39 Benzonatate 100 Mg Capsule PO TID PRN cough Brimonidine Tartrate 1 drop 12/05/24 14:00 12/09/24 05:15 Brimonidine Tartrate 0.2% Op Soln 5 Ml Btl EACH EYE 1 drop Q8HR BERNARDO Administration Brinzolamide 1 drop 12/05/24 14:00 12/09/24 05:15 Brinzolamide 1% Ophth Susp 10 Ml EACH EYE 1 drop Q8HR BERNARDO Administration Carvedilol 3.125 mg 12/05/24 08:00 12/07/24 09:01 Carvedilol 3.125 Mg Tablet PO Not Given BIDWM BERNARDO Dextrose 12.5 gm 12/04/24 00:50 12/05/24 13:05 Dextrose 50% 25 Gm/50 Ml Syringe IV PUSH 12.5 gm PRN PRN Administration Hypoglycemia Protocol Escitalopram Oxalate 10 mg 12/05/24 09:00 12/05/24 10:29 Escitalopram Oxalate 10 Mg Tablet PO Not Given QAM BERNARDO Fluticasone/Umeclidinium/Vilanterol 1 puff 12/05/24 09:00 12/07/24 07:55 Fluticasone/Umeclidin/Vilanter 100-62.5-25 Mcg Ellipta INHALATION Not Given DAILY BERNARDO Glucose 15 gm 12/04/24 00:50 Glucose Oral Gel 15 Gm Of Glucse In 37.5 Gm Tube PO PRN PRN Hypoglycemia Protocol Heparin Sodium (Porcine) 5,000 units 12/04/24 14:00 12/09/24 05:14 Heparin Sodium 5,000 Units/Ml Vial SUB-Q 5,000 units Q8HR BERNARDO Administration Dextrose 1,000 mls @ 100 mls/hr 12/04/24 00:50 Dextrose 5% 1,000 Ml IVPB PRN PRN Hypoglycemia Protocol Piperacillin Sod/Tazobactam 50 mls @ 100 mls/hr 12/06/24 13:00 12/08/24 21:35 Sod 2.25 gm/ Sodium Chloride IVPB Infused Q8HR BERNARDO Infusion Albumin Human 50 mls @ 999 mls/hr 12/08/24 06:29 Albutein IVPB 01/07/25 06:28 Q10M PRN HYPOTENSION Insulin Aspart 2 - 5 units 12/07/24 12:00 12/09/24 06:12 Insulin Aspart (*Bkc) 100 Units/Ml SUB-Q Not Given Q6HR BERNARDO Protocol Lidocaine 1 patch 12/05/24 09:00 12/08/24 07:44 Lidocaine 5% Patch TOPICAL Not Given DAILY BERNARDO Loperamide HCl 2 mg 12/05/24 08:39 Loperamide Hcl 2 Mg Capsule PO Q6H PRN Diarrhea Metoprolol Tartrate 2.5 mg 12/07/24 11:12 Metoprolol Tartrate Inj 5 Mg/5 Ml Vial IV PUSH Q6H PRN Tachycardia Mirtazapine 7.5 mg 12/04/24 21:00 12/04/24 21:23 Mirtazapine 7.5 Mg Tablet PO 7.5 mg HS BERNARDO Administration Morphine Sulfate 2 mg 12/07/24 19:35 12/09/24 10:29 Morphine Sulfate (*Crx) 2 Mg/Ml Inj IV PUSH 2 mg Q4H PRN Administration Pain Rated 7-10 Oxycodone HCl 5 mg 12/04/24 14:02 12/04/24 21:24 Oxycodone Hcl (*Crx) 5 Mg Tab Ir PO 5 mg Q12HR PRN Administration Pain Rated 7-10 Tamsulosin HCl 0.4 mg 12/05/24 09:00 12/07/24 09:01 Tamsulosin Hcl 0.4 Mg Capsule PO Not Given DAILY [facility] Umeclidinium [place] 1 puff 12/05/24 08:00 12/05/24 12:04 Umeclidinium [place] 62.5 Mcg Ellipta INHALATION [facility] Rad[facility] Results: ITS Impressions Chest/Abdomen/Pelvis CT 12/04/24 07:39 IMPRESSION: 1. Left lower lobe pneumonia. 2. Mild to moderate bilateral renal atrophy with bilateral renal stents in expected position and similar pattern of increased density in the bilateral renal collecting systems which could represent either small residual excreted contrast as a recent contrast utilization or stones/stone fragments. Head CT 12/05/24 18:02 IMPRESSION: No acute intracranial process. Results reported telephonically to Kareen Avila RN by Dr. Medrano at 6:06 PM on 12/05/2024. Venous Doppler Study 12/05/24 20:05 IMPRESSION: Right cephalic DVT. No DVT detected in the left upper extremity. Brain MRI 12/06/24 12:55 IMPRESSION: 1. No significant change in chronic infarcts, the largest involving the plantar to the right middle cerebral and portions of the anterior cerebral artery vascular distribution. No acute intracranial process. 2. Unchanged significant decrease in caliber of the flow void at the right internal carotid artery which could be related to atherosclerosis and stenosis or decreased perfusion requirement secondary to the extensive infarction in the right cerebral hemisphere. Chest X-Ray 12/07/24 17:37 IMPRESSION: Mild pulmonary vascular congestion with a small left-sided pleural effusion. Right internal jugular tunnelled hemodialysis catheter in position and ready for immediate use. Abdomen X-Ray 12/08/24 15:34 IMPRESSION: Nasogastric tube in good position and ready for immediate use. Labs Labs: Laboratory Tests 12/09/24 04:40 12/09/24 04:40 Calcium 8.8 Total Bilirubin 0.7 AST 25 ALT 11 Alkaline Phosphatase 180 H Total Protein 5.9 L Albumin 3.6
[2024-12-09] MEDS: EPOETIN ALFA-EPBX 20,000 UNITS/ML VIAL 20000 UNITS IV PUSH (10:25)
[2024-12-09] MEDS: ASPIRIN 300 MG SUPPOSITORY RECTAL (12:25)
[2024-12-09] MEDS: LIDOCAINE 5% PATCH 1 PATCH TOPICAL (12:28)
[2024-12-09] MEDS: PIPERACILLIN/TAZOBACTAM SOD 2.25 GM in SODIUM CHLORIDE 0.9% IV 50 ML 100 ML IVPB ×2 (15:24→22:16)
--- NOTE | 2024-12-09 15:51 | WPDNEUROLOGY ---
Neurology EEG Report General Information Date of Study: 12/08/24 TEST Electroencephalogram DIAGNOSIS altered mental status, right CVA, renal failure on hemodialysis CONDITION OF RECORDING bedside recording EEG NUMBER [id number] CLINICAL HISTORY 69 years old with history of episodes of shaking for a few minutes. During the tracing the patient turned his head to the left and has a for gaze and began jerking the head eyes in upper extremities along with groaning for few minutes. This quickly resolved. Patient did not respond to the name or trace the fingers. EEG DESCRIPTION The background activity consists of predominantly theta activity. Sharp and wave complexes were seen simultaneously over both hemispheres which appear to be most likely triphasic waves however these appear nearly at 1-2 hertz throughout the recording. Muscle and electrode artifacts were noted over the right central temporal area during a significant part of the recording. Stage 2 sleep was not recorded. Hyperventilation or photic switch her not performed. IMPRESSION This is significant abnormal EEG due to presence of moderate diffuse background slowing. In addition sharp and wave complexes were seen throughout the recording suggestive of most likely triphasic waves such as may be seen with metabolic encephalopathy.
--- NOTE | 2024-12-09 17:40 | PM.IMPN ---
Progress Note: A&P Assessment and Plan (1) Sepsis: Code(s): A41.9 - Sepsis, unspecified organism Status: Acute Assessment and Plan: Patient presents with AMS and found to have sepsis, HoTN and respiratory failure related to multifocal PNA. Chest CT showing worsening consolidation and surrounding tree-in-bud opacities in the LLL consistent with pneumonia. Concern for HAP given recent hospitalization BCx NGTD. UCx negative MRSA negative Currently on Zosyn only. Wean O2 as tolerated. (2) Sepsis associated hypotension: Code(s): A41.9 - Sepsis, unspecified organism; I95.9 - Hypotension, unspecified Status: Acute Assessment and Plan: BP remains well controlled. As above (3) Acute hypoxic respiratory failure: Code(s): J96.01 - Acute respiratory failure with hypoxia Status: Acute Assessment and Plan: Acute hypoxemic resp failure present on admission related to PNA. He required high flow NC at times but this is improved. Weaned to 3 liters oxygen Continue bronchodilators. Titrate oxygen (4) Altered mental status: Code(s): R41.82 - Altered mental status, unspecified Status: Acute Assessment and Plan: Patient presents with AMS. Concern for CVA but CT head showing no acute intracranial process but does chronic findings. MRI brain showing no acute findings but again shows a large region encephalomalacia involving the majority of the right frontal and temporal lobes, significant portion of the right parietal lobe and the right basal ganglia left. Additional encephalomalacia involving the right occipital lobe. For also multiple areas of old infarcts. Please see report for details. EEG showing significant abnormal EEG due to presence of moderate diffuse background slowing. In addition sharp and wave complexes were seen throughout the recording suggestive of most likely triphasic waves such as may be seen with metabolic encephalopathy. Neurology consulted. Consider metabolic from [facility]. Continue with aspirin. Continue treatment as above and supportive care. Continue NGT feedings. May need PEG if he does not show signs of improvement with HD. (5) Acute kidney injury: Code(s): N17.9 - Acute kidney failure, unspecified Status: Acute Assessment and Plan: Recent acute renal failure with creatinine peaking to 7 requiring temporary dialysis. Cr was down to 3.6 at discharge on 11/24/24. Readmission with creatinine of 4.6 and this continued to worsen. Nephrology consulted Underwent HD catheter placement 12/07 and underwent dialysis yesterday and today. Monitor mental status as his metabolic derangement improves. (6) Multifocal pneumonia: Code(s): J18.8 - Other pneumonia, unspecified organism Status: Acute Assessment and Plan: As above. (7) Urinary tract infection: Code(s): N39.0 - Urinary tract infection, site not specified Status: Acute Assessment and Plan: UA noted. UCx negative. UTI ruled out (8) Type 2 diabetes mellitus: Qualifiers: Diabetes mellitus intermediate insulin use: with superintendent terminal use Diabetes mellitus complication status: with hypoglycemia Diabetes mellitus complication detail: without coma Qualified Code(s): E11.649 - Type 2 diabetes mellitus with hypoglycemia without coma; Z79.4 - MCFP (current) use of insulin Code(s): E11.9 - Type 2 diabetes mellitus without complications Status: Chronic Assessment and Plan: A1c 5.0%. The patient's blood glucose was reviewed on 12/09 Glucose remains well controlled. Continue AccuCheks covering with sliding scale. Hypoglycemia protocol available as needed. Continue to monitor (9) Anemia: Code(s): D64.9 - Anemia, unspecified Status: Acute Assessment and Plan: Hgb low but stable in the 7 range. [place] to be multifactorial Epogen given. Follow and transfuse for Hgb <7. Plan Right cephalic vein thrombosis - on dvt proph. this is superficial vein thrombosis. continue conservative mgmt HTN - Blood pressure on soft diet. Continue to monitor pSBO - Recent partial small-bowel obstruction/hydrops gallbladder. Monitor stool output. Kidney stones - Mildly obstructing left ureteral calculus and right renal stones status post cystoscopy bilateral retrograde left ureteroscopy stone extraction bilateral ureteral stent placement 11/16/2024 and [place] catheter placement. urology team on board. DVT prophylaxis on Sq Heparin Code status - full code Subjective Date/time seen: 12/09/24 17:40 Interval history: 69yo male with hx of CVA, wheelchair dependent, COPD, CAD, JAMES, DM and HTN here for altered mental status. Assuming care. Chart reviewed. Patient is unable to provide hx. He had HD earlier today. Family at bedside. Patient is wheelchair dependent and resides at a long term. Cee lift. He normally feeds himself. Review of Systems Review of Systems: ROS unobtainable: Yes unobtainable due to mental status Exam Narrative: Tm 100.0 97.5 140/57 93 18 94% 3L Gen - chronically ill appearing male in NARD resting quietly. he arouses easily and begins to loudly moan HEENT - NGT secured. dry MM. Chest - lungs coarse anteriorly. nml RR CV - RRR S1/S2. Abd - Soft, obese, some grimacing with exam Ext -edematous extremities worse in the upper extremities. Neuro -arouses easily. Essentially nonverbal. Comes agitated and moans loudly Psych -difficult to assess. Skin -cool and dry. Mottling noted in the lower extremities. Weeping noted from right upper extremity. Objective Data Vital Signs Vital Signs: Vital Signs - 24 hr 12/08/24 17:46 12/08/24 20:00 12/08/24 20:00 Temperature 100.0 F H Pulse Rate 77 70 66 Respiratory Rate 24 H Blood Pressure 135/48 L Pulse Oximetry 95 94 Oxygen Delivery Nasal Cannula Oxygen Flow Rate 3 12/08/24 20:00 12/08/24 20:30 12/08/24 20:40 Temperature Pulse Rate 74 71 72 Respiratory Rate 18 18 Blood Pressure Pulse Oximetry Oxygen Delivery Oxygen Flow Rate 12/08/24 20:40 12/08/24 22:00 12/08/24 23:45 Temperature 99.8 F H Pulse Rate 78 69 Respiratory Rate 22 H Blood Pressure 137/49 L Pulse Oximetry 95 95 Oxygen Delivery Nasal Cannula Oxygen Flow Rate 3 12/08/24 23:57 12/09/24 00:00 12/09/24 02:00 Temperature Pulse Rate 67 72 69 Respiratory Rate Blood Pressure Pulse Oximetry 95 Oxygen Delivery Nasal Cannula Oxygen Flow Rate 3 12/09/24 03:40 12/09/24 04:00 12/09/24 04:51 Temperature 99.2 F Pulse Rate 81 77 79 Respiratory Rate 20 Blood Pressure 121/50 L Pulse Oximetry 96 97 Oxygen Delivery Nasal Cannula Oxygen Flow Rate 3 12/09/24 06:00 12/09/24 07:22 12/09/24 07:36 Temperature 97.9 F Pulse Rate 71 71 Respiratory Rate 18 Blood Pressure 115/47 L Pulse Oximetry 94 93 Oxygen Delivery Nasal Cannula Oxygen Flow Rate 3 12/09/24 07:36 12/09/24 07:45 12/09/24 08:00 Temperature Pulse Rate 69 74 81 Respiratory Rate 20 20 Blood Pressure Pulse Oximetry 96 Oxygen Delivery Nasal Cannula Oxygen Flow Rate 3 12/09/24 08:34 12/09/24 08:34 12/09/24 08:41 Temperature 97.8 F Pulse Rate 67 67 Respiratory Rate 18 Blood Pressure 131/56 L 131/56 L Pulse Oximetry Oxygen Delivery Oxygen Flow Rate 3 12/09/24 08:45 12/09/24 09:00 12/09/24 09:15 Temperature Pulse Rate 67 66 66 Respiratory Rate Blood Pressure 128/60 118/54 L 123/54 L Pulse Oximetry Oxygen Delivery Oxygen Flow Rate 12/09/24 09:30 12/09/24 09:45 12/09/24 10:00 Temperature Pulse Rate 70 67 78 Respiratory Rate Blood Pressure 134/57 L 110/54 L 115/53 L Pulse Oximetry Oxygen Delivery Oxygen Flow Rate 12/09/24 10:15 12/09/24 10:30 12/09/24 10:45 Temperature Pulse Rate 81 84 75 Respiratory Rate Blood Pressure 104/44 L 130/56 L 110/51 L Pulse Oximetry Oxygen Delivery Oxygen Flow Rate 12/09/24 11:00 12/09/24 11:15 12/09/24 11:30 Temperature Pulse Rate 78 78 76 Respiratory Rate Blood Pressure 120/52 L 118/53 L 132/48 L Pulse Oximetry Oxygen Delivery Oxygen Flow Rate 12/09/24 11:45 12/09/24 12:00 12/09/24 12:00 Temperature Pulse Rate 84 82 81 Respiratory Rate Blood Pressure 131/64 126/54 L Pulse Oximetry 96 Oxygen Delivery Nasal Cannula Oxygen Flow Rate 3 12/09/24 12:13 12/09/24 12:17 12/09/24 13:24 Temperature 97.6 F Pulse Rate 85 92 68 Respiratory Rate 18 20 Blood Pressure 143/61 H 156/72 H Pulse Oximetry Oxygen Delivery Oxygen Flow Rate 12/09/24 13:35 12/09/24 15:38 12/09/24 16:00 Temperature 97.5 F L Pulse Rate 80 81 93 Respiratory Rate 20 18 Blood Pressure 140/57 L Pulse Oximetry 96 94 Oxygen Delivery Nasal Cannula Oxygen Flow Rate 3 Intake/Output Intake/Output: Intake & Output 12/06/24 12/07/24 12/08/24 12/09/24 23:59 23:59 23:59 23:59 Intake Total 700 800 550 0 Output Total 275 665 432 5356 Balance 425 [phone] Meds/Results Medications: Active Medications Generic Name Dose Route Start Last Admin Trade Name Freq PRN Reason Stop Dose Admin Acetaminophen 650 mg 12/04/24 01:55 Acetaminophen 650 Mg Suppository RECTAL Q6H PRN Mild Pain (1-3) or Fever Acetaminophen 650 mg 12/05/24 08:39 Acetaminophen 325 Mg Tablet PO Q8H PRN Pain, Mild Albuterol 2 puff 12/04/24 14:20 Albuterol Sulfate (*Sp) Aerosol 1 Puff INHALATION Q4HRT PRN Wheezing Albuterol/Ipratropium 3 ml 12/05/24 14:00 12/09/24 13:23 Ipratropium 0.5 Mg/Albuterol Sulfate 2.5 Mg Ampul.Neb 3 Ml INHALATION 3 ml TIDRT BERNARDO Administration Artificial Tears 1 drop 12/05/24 08:48 Artificial Tears Ophth Soln 15 Ml Bottle EACH EYE QID PRN Dry Eye(s) Aspirin 300 mg 12/07/24 09:00 12/09/24 12:25 Aspirin 300 Mg Suppository RECTAL 300 mg DAILY BERNARDO Administration Benzonatate 100 mg 12/05/24 08:39 Benzonatate 100 Mg Capsule PO TID PRN cough Brimonidine Tartrate 1 drop 12/05/24 14:00 12/09/24 15:35 Brimonidine Tartrate 0.2% Op Soln 5 Ml Btl EACH EYE 1 drop Q8HR BERNARDO Administration Brinzolamide 1 drop 12/05/24 14:00 12/09/24 15:36 Brinzolamide 1% Ophth Susp 10 Ml EACH EYE 1 drop Q8HR BERNARDO Administration Carvedilol 3.125 mg 12/05/24 08:00 12/07/24 09:01 Carvedilol 3.125 Mg Tablet PO Not Given BIDWM BERNARDO Dextrose 12.5 gm 12/04/24 00:50 12/05/24 13:05 Dextrose 50% 25 Gm/50 Ml Syringe IV PUSH 12.5 gm PRN PRN Administration Hypoglycemia Protocol Escitalopram Oxalate 10 mg 12/05/24 09:00 12/05/24 10:29 Escitalopram Oxalate 10 Mg Tablet PO Not Given QAM BERNARDO Fluticasone/Umeclidinium/Vilanterol 1 puff 12/05/24 09:00 12/07/24 07:55 Fluticasone/Umeclidin/Vilanter 100-62.5-25 Mcg Ellipta INHALATION Not Given DAILY BERNARDO Glucose 15 gm 12/04/24 00:50 Glucose Oral Gel 15 Gm Of Glucse In 37.5 Gm Tube PO PRN PRN Hypoglycemia Protocol Heparin Sodium (Porcine) 5,000 units 12/04/24 14:00 12/09/24 15:36 Heparin Sodium 5,000 Units/Ml Vial SUB-Q 5,000 units Q8HR BERNARDO Administration Dextrose 1,000 mls @ 100 mls/hr 12/04/24 00:50 Dextrose 5% 1,000 Ml IVPB PRN PRN Hypoglycemia Protocol Piperacillin Sod/Tazobactam 50 mls @ 100 mls/hr 12/06/24 13:00 12/09/24 15:34 Sod 2.25 gm/ Sodium Chloride IVPB Not Given Q8HR BERNARDO Albumin Human 50 mls @ 999 mls/hr 12/08/24 06:29 Albutein IVPB 01/07/25 06:28 Q10M PRN HYPOTENSION Insulin Aspart 2 - 5 units 12/07/24 12:00 12/09/24 15:35 Insulin Aspart (*Bkc) 100 Units/Ml SUB-Q Not Given Q6HR [facility] Protocol Lidocaine 1 patch 12/05/24 09:00 12/09/24 12:28 Lidocaine 5% Patch TOPICAL 1 patch DAILY BERNARDO Administration Loperamide HCl 2 mg 12/05/24 08:39 Loperamide Hcl 2 Mg Capsule PO Q6H PRN Diarrhea Metoprolol Tartrate 2.5 mg 12/07/24 11:12 Metoprolol Tartrate Inj 5 Mg/5 Ml Vial IV PUSH Q6H PRN Tachycardia Mirtazapine 7.5 mg 12/04/24 21:00 12/04/24 21:23 Mirtazapine 7.5 Mg Tablet PO 7.5 mg HS BERNARDO Administration Morphine Sulfate 2 mg 12/07/24 19:35 12/09/24 10:29 Morphine Sulfate (*Crx) 2 Mg/Ml Inj IV PUSH 2 mg Q4H PRN Administration Pain Rated 7-10 Oxycodone HCl 5 mg 12/04/24 14:02 12/04/24 21:24 Oxycodone Hcl (*Crx) 5 Mg Tab Ir PO 5 mg Q12HR PRN Administration Pain Rated 7-10 Tamsulosin HCl 0.4 mg 12/05/24 09:00 12/07/24 09:01 Tamsulosin Hcl 0.4 Mg Capsule PO Not Given DAILY [facility] Umeclidinium [place] 1 puff 12/05/24 08:00 12/05/24 12:04 Umeclidinium [place] 62.5 Mcg Ellipta INHALATION Not [facility] Rad[facility] Results: ITS Impressions Chest/Abdomen/Pelvis CT 12/04/24 07:39 IMPRESSION: 1. Left lower lobe pneumonia. 2. Mild to moderate bilateral renal atrophy with bilateral renal stents in expected position and similar pattern of increased density in the bilateral renal collecting systems which could represent either small residual excreted contrast as a recent contrast utilization or stones/stone fragments. Head CT 12/05/24 18:02 IMPRESSION: No acute intracranial process. Results reported telephonically to Kareen Avila RN by Dr. Medrano at 6:06 PM on 12/05/2024. Venous Doppler Study 12/05/24 20:05 IMPRESSION: Right cephalic DVT. No DVT detected in the left upper extremity. Brain MRI 12/06/24 12:55 IMPRESSION: 1. No significant change in chronic infarcts, the largest involving the plantar to the right middle cerebral and portions of the anterior cerebral artery vascular distribution. No acute intracranial process. 2. Unchanged significant decrease in caliber of the flow void at the right internal carotid artery which could be related to atherosclerosis and stenosis or decreased perfusion requirement secondary to the extensive infarction in the right cerebral hemisphere. Chest X-Ray 12/07/24 17:37 IMPRESSION: Mild pulmonary vascular congestion with a small left-sided pleural effusion. Right internal jugular tunnelled hemodialysis catheter in position and ready for immediate use. Abdomen X-Ray 12/08/24 15:34 IMPRESSION: Nasogastric tube in good position and ready for immediate use. Labs Labs: Laboratory Results - last 24 hr 12/08/24 12/08/24 12/09/24 18:51 23:54 04:40 WBC 6.1 RBC 2.78 L Hgb 7.7 L Hct 25.5 L MCV 91.7 MCH 27.7 MCHC 30.2 L RDW 15.9 H Plt Count 164 MPV 9.3 Sodium 139 Potassium 3.7 Chloride 103 Carbon Dioxide 25 Anion Gap 11 BUN 36 H D Creatinine 4.56 H Estim Creat Clear Calc 18 Estimated GFR 13 L Glucose 139 H POC Capillary Glucose 91 111 H Calcium 8.8 Total Bilirubin 0.7 AST 25 ALT 11 Alkaline Phosphatase 180 H Total Protein 5.9 L Albumin 3.6
[2024-12-10] VITALS (25 sets, daily range): BP systolic 122–152; BP diastolic 40–62; PULSE 56–80; RESP 14–20; TEMP 36.8–37.4; O2SAT 94–100
[2024-12-10] MEDS: MORPHINE SULFATE (*CRX) 2 MG/ML INJ IV PUSH ×2 (00:28→13:42)
[2024-12-10 04:46] LABS: Hematocrit 26.4 % (42.0-52.0); Hemoglobin 8.0 g/dL (14.0-18.0); Mean Corpuscular HGB Conc 30.3 g/dl (32-36); Mean Corpuscular Hemoglobin 27.8 pg (26-34); Mean Corpuscular Volume 91.7 fl (80-100); Platelet Count Result 168 k/mm3 (150-375); Red Blood Count 2.88 M/mm3 (4.6-6.20); White Blood Count 4.7 K/mm3 (4.5-10.0)
[2024-12-10 06:02] LABS: Iron 93 ug/dL (49-181); Percent Iron Saturation 85 % (20-50)
[2024-12-10] MEDS: BRINZOLAMIDE 1% OPHTH SUSP 10 ML 1 DROP EACH EYE ×3 (06:23→21:30)
[2024-12-10] MEDS: BRIMONIDINE TARTRATE 0.2% OP SOLN 5 ML BTL 1 DROP EACH EYE ×3 (06:24→21:34)
[2024-12-10] MEDS: PIPERACILLIN/TAZOBACTAM SOD 2.25 GM in SODIUM CHLORIDE 0.9% IV 50 ML 100 ML IVPB ×3 (06:24→21:35)
[2024-12-10 06:26] LABS: Ferritin 703.00 ng/mL (11.1-264)
[2024-12-10 06:54] LABS: Alanine Aminotransferase 14 U/L (6-50); Albumin Level 3.4 g/dL (3.5-5.1); Alkaline Phosphatase 191 U/L (38-126); Anion Gap 10 mmol/L (4-12); Aspartate Amino Transferase 40 U/L (17-59); Bilirubin,Total 0.6 mg/dL (0.2-1.3); Blood Urea Nitrogen 36 mg/dL (9-20); Calcium 9.2 mg/dL (8.4-10.2); Carbon Dioxide 23 mmol/L (22-30); Chloride 108 mmol/L (98-107); Estimated CRCL calculation 22 ml/min; Estimated Glomerular Filt Rate 19; Glucose 180 mg/dL (65-110); Magnesium 2.0 mg/dL (1.6-2.3); Potassium 3.8 mmol/L (3.4-5.0); Sodium 141 mmol/L (137-145); Total Protein 6.1 g/dL (6.3-8.2)
[2024-12-10 07:45] LABS: Vitamin B12 592.0 pg/mL (239-931)
[2024-12-10] MEDS: oxyCODONE HCL (*CRX) 5 MG TAB IR PO (09:46)
[2024-12-10] MEDS: POTASSIUM/PHOSPHORUS/SODIUM 1.5 GM PACKET 2 PACKET FEED TUBE (09:46)
[2024-12-10] MEDS: ASPIRIN 81 MG CHEWABLE TABLET FEED TUBE (09:47)
[2024-12-10] MEDS: LIDOCAINE 5% PATCH 1 PATCH TOPICAL (09:47)
--- NOTE | 2024-12-10 09:50 | P.PNNP_ITS ---
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 [employer]/dialysis x 2 sessions * discharge creatinine was 3.66mg/dl (on 11/24/24) * admission creatinine 4.6mg/dl * suspect multifactorial etiology: * possible prerenal factors * insensible losses (due to high fevers) * hypotension/hemodynamic instability * infection/early sepsis (pneumonia) * other(?) * evaluation to date noted: * CT of C/A/P noted - mild to moderate bilateral renal atrophy * normal renal ultrasound * urine electrolytes (by FeUrea) prerenal * urine eosinophils negative * UA suggestive of infection * proteinuria noted * CPK elevated but not enough to affect kidney function * no critical electrolytes, but with a mild acidosis, anemia, and encephalopathy * however, given the possible concern that AMS maybe secondary to BRYCE, initiated on [employer]/dialysis * s/p tunneled HD catheter placement (on 12/07) * HD on 12/08 and 12/09 * plan another session tomorrow * follow trend of repeat labs and UOP for potential renal recovery (2) Hypotension: Qualifiers: Hypotension type: hypotension due to hypovolemia Qualified Code(s): E 86.1 - Hypovolemia Code(s): I95.9 - Hypotension, unspecified Status: Acute Assessment and Plan: * clinically better * noted in ER/upon presentation * early sepsis(?) on top of possible volume depletion(?) * s/p IVFs and IV albumin on hold * holding BP medications * follow trend of hemodynamics (3) Acute hypoxic respiratory failure: Code(s): J96.01 - Acute respiratory failure with hypoxia Status: Acute Assessment and Plan: * presumably due to pneumonia * requiring supplemental oxygen - weaning as tolerated * follow respiratory status * monitor for fluid overload * fluid removal with HD to maintain euvolemia (4) Altered mental status: Code(s): R41.82 - Altered mental status, unspecified Status: Acute Assessment and Plan: * no significant improvement since admission * possibly due to infection +/- BRYCE; another possible CVA? * imaging noted * head CT negative in ER * repeat CT of head (12/05) and MRI of brain negative * recent LP on last admission with CSF results noted * MRI of brain (on 12/06): no significant change in chronic infarcts, the largest involving the plantar to the right middle cerebral and portions of the anterior cerebral artery vascular distribution; no acute intracranial process * Neurology recommendations noted * follow mentation (5) Pneumonia: Code(s): J18.9 - Pneumonia, unspecified organism Status: Acute Assessment and Plan: * as noted by imaging on admission * follow cultures - negative to date * follow respiratory status * on antibiotics (6) Urinary tract infection: Code(s): N39.0 - Urinary tract infection, site not specified Status: Acute Assessment and Plan: * suspected by admission UA * however, has chronic linton catheter * this was exchanged in the ER * follow culture data - negative to date * on antibiotics (7) Anemia: Code(s): D64.9 - Anemia, unspecified Status: Acute Assessment and Plan: * due to BRYCE/ARF, CKD(?), and acute illness * Epogen with HD * follow trend of H/H (8) Type 2 diabetes mellitus: Qualifiers: Diabetes mellitus complication detail: without coma Diabetes mellitus complication status: with hypoglycemia 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 L Subjective Date/time seen: 12/10/24 09:50 Interval history: Follow-up for acute kidney injury/acute renal failure (on chronic kidney disease?) -- now requiring [employer]/hemodialysis. Tolerated dialysis treatment yesterday without any issues or problems; some possible improvement in mentation as he looks at me when I call his name with some mumbling when seen; stable hemodynamics with noted and reduced oxygen requirements but essentially anuric; febrile overnight with a T-max of 101.2?; no other issues/events earlier today. Exam 2 Narrative: General: large but ill-appearing male in NAD; confused Heart: normal S1 and S2; no rub Lungs: coarse breath sounds Abdomen: obese with positive bowel sounds Extremities: no cyanosis or clubbing; + UE edema Skin: warm and intact Objective Data Vital Signs Vital Signs: Vital Signs Temp Pulse Resp BP Pulse Ox O2 Del Method O2 Flow Rate 12/10/24 07:50 61 16 100 High Flow Nasal Cannula 2 12/10/24 07:35 98.3 F 64 16 122/51 L 94 12/10/24 06:00 65 12/10/24 04:00 64 12/10/24 03:51 99.4 F 65 19 152/62 H 98 12/10/24 03:37 100 Nasal Cannula 3 12/10/24 02:00 63 12/10/24 00:00 74 12/09/24 23:58 93 Nasal Cannula 3 12/09/24 23:32 100.4 F H 73 18 136/65 93 12/09/24 22:00 75 12/09/24 20:48 96 Nasal Cannula 3 12/09/24 20:37 78 20 12/09/24 20:31 78 20 12/09/24 20:00 93 Nasal Cannula 3 12/09/24 20:00 76 12/09/24 19:56 101.2 F H 80 18 119/51 L 99 12/09/24 18:00 82 12/09/24 16:00 79 12/09/24 16:00 97.5 F L 93 18 140/57 L 94 12/09/24 15:38 81 96 Nasal Cannula 3 12/09/24 14:00 87 12/09/24 13:35 80 20 12/09/24 13:24 68 20 12/09/24 12:17 97.6 F 92 18 156/72 H 12/09/24 12:13 85 143/61 H 12/09/24 12:00 80 12/09/24 12:00 81 96 Nasal Cannula 3 12/09/24 12:00 82 126/54 L 12/09/24 11:45 84 131/64 12/09/24 11:30 76 132/48 L Intake/Output Intake/Output: Intake & Output 12/07/24 12/08/24 12/09/24 12/10/24 23:59 23:59 23:59 23:59 Intake Total 640 957 1521 1000 Output Total 062 574 4241 0 Balance 560 -125 -85 1000 Meds/Results Medications: Active Medications Generic Name Dose Route Start Last Admin Trade Name Freq PRN Reason Stop Dose Admin Acetaminophen 650 mg 12/04/24 01:55 Acetaminophen 650 Mg Suppository RECTAL Q6H PRN Mild Pain (1-3) or Fever Acetaminophen 650 mg 12/05/24 08:39 Acetaminophen 325 Mg Tablet PO Q8H PRN Pain, Mild Albuterol 2 puff 12/04/24 14:20 Albuterol Sulfate (*Sp) Aerosol 1 Puff INHALATION Q4HRT PRN Wheezing Albuterol/Ipratropium 3 ml 12/05/24 14:00 12/10/24 07:59 Ipratropium 0.5 Mg/Albuterol Sulfate 2.5 Mg Ampul.Neb 3 Ml INHALATION Not Given TIDRT BERNARDO Artificial Tears 1 drop 12/05/24 08:48 Artificial Tears Ophth Soln 15 Ml Bottle EACH EYE QID PRN Dry Eye(s) Aspirin 81 mg 12/10/24 08:05 12/10/24 09:47 Aspirin 81 Mg Chewable Tablet FEED TUBE 81 mg DAILY@0800 BERNARDO Administration Benzonatate 100 mg 12/05/24 08:39 Benzonatate 100 Mg Capsule PO TID PRN cough Brimonidine Tartrate 1 drop 12/05/24 14:00 12/10/24 06:24 Brimonidine Tartrate 0.2% Op Soln 5 Ml Btl EACH EYE 1 drop Q8HR BERNARDO Administration Brinzolamide 1 drop 12/05/24 14:00 12/10/24 06:23 Brinzolamide 1% Ophth Susp 10 Ml EACH EYE 1 drop Q8HR BERNARDO Administration Carvedilol 3.125 mg 12/05/24 08:00 12/07/24 09:01 Carvedilol 3.125 Mg Tablet PO Not Given BIDWM BERNARDO Dextrose 12.5 gm 12/04/24 00:50 12/05/24 13:05 Dextrose 50% 25 Gm/50 Ml Syringe IV PUSH 12.5 gm PRN PRN Administration Hypoglycemia Protocol Escitalopram Oxalate 10 mg 12/05/24 09:00 12/05/24 10:29 Escitalopram Oxalate 10 Mg Tablet PO Not Given QAM BERNARDO Fluticasone/Umeclidinium/Vilanterol 1 puff 12/05/24 09:00 12/07/24 07:55 Fluticasone/Umeclidin/Vilanter 100-62.5-25 Mcg Ellipta INHALATION Not Given DAILY BERNARDO Glucose 15 gm 12/04/24 00:50 Glucose Oral Gel 15 Gm Of Glucse In 37.5 Gm Tube PO PRN PRN Hypoglycemia Protocol Heparin Sodium (Porcine) 5,000 units 12/04/24 14:00 12/10/24 06:23 Heparin Sodium 5,000 Units/Ml Vial SUB-Q 5,000 units Q8HR BERNARDO Administration Dextrose 1,000 mls @ 100 mls/hr 12/04/24 00:50 Dextrose 5% 1,000 Ml IVPB PRN PRN Hypoglycemia Protocol Piperacillin Sod/Tazobactam 50 mls @ 100 mls/hr 12/06/24 13:00 12/10/24 06:54 Sod 2.25 gm/ Sodium Chloride IVPB Infused Q8HR BERNARDO Infusion Albumin Human 50 mls @ 999 mls/hr 12/08/24 06:29 Albutein IVPB 01/07/25 06:28 Q10M PRN HYPOTENSION Insulin Aspart 2 - 5 units 12/07/24 12:00 12/10/24 06:55 Insulin Aspart (*Bkc) 100 Units/Ml SUB-Q Not Given Q6HR [facility] Protocol Lidocaine 1 patch 12/05/24 09:00 12/10/24 09:47 Lidocaine 5% Patch TOPICAL 1 patch DAILY BERNARDO Administration Loperamide HCl 2 mg 12/05/24 08:39 Loperamide Hcl 2 Mg Capsule PO Q6H PRN Diarrhea Memantine 5 mg 12/10/24 11:00 Memantine 5 Mg Tablet FEED TUBE DAILY [facility] Metoprolol Tartrate 2.5 mg 12/07/24 11:12 Metoprolol Tartrate Inj 5 Mg/5 Ml Vial IV PUSH Q6H PRN Tachycardia Mirtazapine 7.5 mg 12/04/24 21:00 12/04/24 21:23 Mirtazapine 7.5 Mg Tablet PO 7.5 mg HS BERNARDO Administration Morphine Sulfate 2 mg 12/07/24 19:35 12/10/24 00:28 Morphine Sulfate (*Crx) 2 Mg/Ml Inj IV PUSH 2 mg Q4H PRN Administration Pain Rated 7-10 Oxycodone HCl 5 mg 12/04/24 14:02 12/10/24 09:46 Oxycodone Hcl (*Crx) 5 Mg Tab Ir PO 5 mg Q12HR PRN Administration Pain Rated 7-10 Rosuvastatin Calcium 40 mg 12/10/24 21:00 Rosuvastatin 20 Mg Tablet FEED TUBE QHS [facility] Tamsulosin HCl 0.4 mg 12/05/24 09:00 12/07/24 09:01 Tamsulosin Hcl 0.4 Mg Capsule PO Not Given DAILY [facility] Umeclidinium Canon 1 puff 12/05/24 08:00 12/05/24 12:04 Umeclidinium Canon 62.5 Mcg Ellipta IN[facility]ATION [facility]: [facility] Impressions Chest/Abdomen/Pelvis CT 12/04/24 07:39 IMPRESSION: 1. Left lower lobe pneumonia. 2. Mild to moderate bilateral renal atrophy with bilateral renal stents in expected position and similar pattern of increased density in the bilateral renal collecting systems which could represent either small residual excreted contrast as a recent contrast utilization or stones/stone fragments. Head CT 12/05/24 18:02 IMPRESSION: No acute intracranial process. Results reported telephonically to Kareen Avila RN by Dr. Medrano at 6:06 PM on 12/05/2024. Venous Doppler Study 12/05/24 20:05 IMPRESSION: Right cephalic DVT. No DVT detected in the left upper extremity. Brain MRI 12/06/24 12:55 IMPRESSION: 1. No significant change in chronic infarcts, the largest involving the plantar to the right middle cerebral and portions of the anterior cerebral artery vascular distribution. No acute intracranial process. 2. Unchanged significant decrease in caliber of the flow void at the right internal carotid artery which could be related to atherosclerosis and stenosis or decreased perfusion requirement secondary to the extensive infarction in the right cerebral hemisphere. Chest X-Ray 12/07/24 17:37 IMPRESSION: Mild pulmonary vascular congestion with a small left-sided pleural effusion. Right internal jugular tunnelled hemodialysis catheter in position and ready for immediate use. Abdomen X-Ray 12/08/24 15:34 IMPRESSION: Nasogastric tube in good position and ready for immediate use. Renal Ultrasound 12/09/24 19:53 IMPRESSION: Unremarkable renal sonogram findings. Labs Labs: Laboratory Tests 12/10/24 04:38 12/10/24 06:17 Calcium 9.2 Phosphorus 1.2 L Magnesium 2.0 Iron 93 TIBC 109 L % Saturation 85 H Ferritin 703.00 H Total Bilirubin 0.6 AST 40 ALT 14 Alkaline Phosphatase 191 H Total Protein 6.1 L Albumin 3.4 L Vitamin B12 592.0 Folate 3.8 Microbiology 12/03/24 17:52 Blood Blood Culture - Final 12/04/24 04:34 Blood Blood Culture - Final
--- NOTE | 2024-12-10 10:33 | P.PNIM_ITS ---
Progress Note: A&P Assessment and Plan (1) Sepsis: Code(s): A41.9 - Sepsis, unspecified organism Status: Acute Assessment and Plan: Patient presents with AMS and found to have sepsis, HoTN and respiratory failure related to multifocal PNA. Chest CT showing worsening consolidation and surrounding tree-in-bud opacities in the LLL consistent with pneumonia. Concern for HAP given recent hospitalization. Consider aspiration. BCx NGTD. UCx negative MRSA negative Mental status better today. Still having fevers. Currently on Zosyn only. Wean O2 as tolerated. Will need a swallow study once he is able. (2) Sepsis associated hypotension: Code(s): A41.9 - Sepsis, unspecified organism; I95.9 - Hypotension, unspecified Status: Acute Assessment and Plan: BP remains well controlled. As above (3) Acute hypoxic respiratory failure: Code(s): J96.01 - Acute respiratory failure with hypoxia Status: Acute Assessment and Plan: Acute hypoxemic resp failure present on admission related to PNA. He required high flow NC at times but this is improved. Weaned to 2 liters oxygen Continue bronchodilators. Titrate oxygen (4) Altered mental status: Code(s): R41.82 - Altered mental status, unspecified Status: Acute Assessment and Plan: Patient presents with AMS. Concern for CVA but CT head showing no acute intracranial process but does chronic findings. MRI brain showing no acute findings but again shows a large region encephalomalacia involving the majority of the right frontal and temporal lobes, significant portion of the right parietal lobe and the right basal ganglia left. Additional encephalomalacia involving the right occipital lobe. For also multiple areas of old infarcts. Please see report for details. EEG showing significant abnormal EEG due to presence of moderate diffuse background slowing. In addition sharp and wave complexes were seen throughout the recording suggestive of most likely triphasic waves such as may be seen with metabolic encephalopathy. Neurology consulted. Consider metabolic from [facility]. Better today after 2 rounds of HD. Continue with aspirin. Continue treatment as above and supportive care. Continue NGT feedings. May need PEG if he does not show signs of improvement with HD or fails swallow study. (5) Acute kidney injury: Code(s): N17.9 - Acute kidney failure, unspecified Status: Acute Assessment and Plan: Recent acute renal failure with creatinine peaking to 7 requiring temporary dialysis. Cr was down to 3.6 at discharge on 11/24/24. Readmission with creatinine of 4.6 and this continued to worsen. Nephrology consulted Tunneled HD catheter placement 12/07 and underwent dialysis 12/08 and 12/09 Mental status improved. Follow (6) Multifocal pneumonia: Code(s): J18.8 - Other pneumonia, unspecified organism Status: Acute Assessment and Plan: As above. (7) Type 2 diabetes mellitus: Qualifiers: Diabetes mellitus jail insulin use: with jail use Diabetes me llitus complication status: with hypoglycemia Diabetes mellitus complication detail: without coma Qualified Code(s): E11.649 - Type 2 diabetes mellitus with hypoglycemia without coma; Z79.4 - superintendent container terminal (current) use of insulin Code(s): E11.9 - Type 2 diabetes mellitus without complications Status: Chronic Assessment and Plan: A1c 5.0%. The patient's blood glucose was reviewed on 12/10 Glucose remains well controlled. Continue AccuCheks covering with sliding scale. Hypoglycemia protocol available as needed. Continue to monitor (8) Anemia: Code(s): D64.9 - Anemia, unspecified Status: Acute Assessment and Plan: Hgb low but stable in the 7-8 range. Shade to be multifactorial Epogen given. Follow and transfuse for Hgb <7. (9) Urinary tract infection: Code(s): N39.0 - Urinary tract infection, site not specified Status: Acute Assessment and Plan: UA noted. UCx negative. UTI ruled out Plan Right cephalic vein thrombosis - on dvt proph. this is superficial vein thrombosis. continue conservative mgmt HTN - Blood pressure stable. Continue to monitor pSBO - Recent partial small-bowel obstruction/hydrops gallbladder at last hospitalization. Monitor stool output. Kidney stones - Mildly obstructing left ureteral calculus and right renal stones status post cystoscopy bilateral retrograde left ureteroscopy stone extraction bilateral ureteral stent placement 11/16/2024 and Huddleston catheter placement. urology team on board. Remove Huddleston? DVT prophylaxis on Sq Heparin Code status - full code Subjective Date/time seen: 12/10/24 10:33 Interval history: 69yo male with hx of CVA, wheelchair dependent, COPD, CAD, JAMES, DM and HTN here for altered mental status. Patient is more alert and appears to regard examiner but still unable to provide hx. Review of Systems Review of Systems: ROS unobtainable: Yes unobtainable due to mental status Exam Narrative: Tm 101.2 98.3 122/51 61 16 100% 2L Gen - chronically ill appearing male in NARD resting quietly. he arouses easily HEENT - NGT secured. dry MM. Chest - lungs coarse anteriorly. nml RR. Right upper chest tunneled HD catheter in situ CV - RRR S1/S2. Tele showing no significant dysrhythmias Abd - Soft, obese, NT - Huddleston secured with scant amount of dark brown urine in bag Ext -edematous extremities worse in the upper extremities. Neuro -arouses easily. Regards examiner. Garbled speech but appears to interact Psych -difficult to assess. Skin -cool and dry. Weeping noted from right upper extremity. Objective Data Vital Signs Vital Signs: Vital Signs - 24 hr 12/09/24 10:45 12/09/24 11:00 12/09/24 11:15 Temperature Pulse Rate 75 78 78 Respiratory Rate Blood Pressure 110/51 L 120/52 L 118/53 L Pulse Oximetry Oxygen Delivery Oxygen Flow Rate 12/09/24 11:30 12/09/24 11:45 12/09/24 12:00 Temperature Pulse Rate 76 84 82 Respiratory Rate Blood Pressure 132/48 L 131/64 126/54 L Pulse Oximetry Oxygen Delivery Oxygen Flow Rate 12/09/24 12:00 12/09/24 12:00 12/09/24 12:13 Temperature Pulse Rate 81 80 85 Respiratory Rate Blood Pressure 143/61 H Pulse Oximetry 96 Oxygen Delivery Nasal Cannula Oxygen Flow Rate 3 12/09/24 12:17 12/09/24 13:24 12/09/24 13:35 Temperature 97.6 F Pulse Rate 92 68 80 Respiratory Rate 18 20 20 Blood Pressure 156/72 H Pulse Oximetry Oxygen Delivery Oxygen Flow Rate 12/09/24 14:00 12/09/24 15:38 12/09/24 16:00 Temperature 97.5 F L Pulse Rate 87 81 93 Respiratory Rate 18 Blood Pressure 140/57 L Pulse Oximetry 96 94 Oxygen Delivery Nasal Cannula Oxygen Flow Rate 3 12/09/24 16:00 12/09/24 18:00 12/09/24 19:56 Temperature 101.2 F H Pulse Rate 79 82 80 Respiratory Rate 18 Blood Pressure 119/51 L Pulse Oximetry 99 Oxygen Delivery Oxygen Flow Rate 12/09/24 20:00 12/09/24 20:00 12/09/24 20:31 Temperature Pulse Rate 76 78 Respiratory Rate 20 Blood Pressure Pulse Oximetry 93 Oxygen Delivery Nasal Cannula Oxygen Flow Rate 3 12/09/24 20:37 12/09/24 20:48 12/09/24 22:00 Temperature Pulse Rate 78 75 Respiratory Rate 20 Blood Pressure Pulse Oximetry 96 Oxygen Delivery Nasal Cannula Oxygen Flow Rate 3 12/09/24 23:32 12/09/24 23:58 12/10/24 00:00 Temperature 100.4 F H Pulse Rate 73 74 Respiratory Rate 18 Blood Pressure 136/65 Pulse Oximetry 93 93 Oxygen Delivery Nasal Cannula Oxygen Flow Rate 3 12/10/24 02:00 12/10/24 03:37 12/10/24 03:51 Temperature 99.4 F Pulse Rate 63 65 Respiratory Rate 19 Blood Pressure 152/62 H Pulse Oximetry 100 98 Oxygen Delivery Nasal Cannula Oxygen Flow Rate 3 12/10/24 04:00 12/10/24 06:00 12/10/24 07:35 Temperature 98.3 F Pulse Rate 64 65 64 Respiratory Rate 16 Blood Pressure 122/51 L Pulse Oximetry 94 Oxygen Delivery Oxygen Flow Rate 12/10/24 07:50 Temperature Pulse Rate 61 Respiratory Rate 16 Blood Pressure Pulse Oximetry 100 Oxygen Delivery High Flow Nasal Cannula Oxygen Flow Rate 2 Intake/Output Intake/Output: Intake & Output 12/07/24 12/08/24 12/09/24 12/10/24 23:59 23:59 23:59 23:59 Intake Total 356 970 7379 1000 Output Total 718 723 8254 0 Balance 560 -125 -85 1000 Meds/Results Medications: Active Medications Generic Name Dose Route Start Last Admin Trade Name Freq PRN Reason Stop Dose Admin Acetaminophen 650 mg 12/04/24 01:55 Acetaminophen 650 Mg Suppository RECTAL Q6H PRN Mild Pain (1-3) or Fever Acetaminophen 650 mg 12/05/24 08:39 Acetaminophen 325 Mg Tablet PO Q8H PRN Pain, Mild Albuterol 2 puff 12/04/24 14:20 Albuterol Sulfate (*Sp) Aerosol 1 Puff INHALATION Q4HRT PRN Wheezing Albuterol/Ipratropium 3 ml 12/05/24 14:00 12/10/24 07:59 Ipratropium 0.5 Mg/Albuterol Sulfate 2.5 Mg Ampul.Neb 3 Ml INHALATION Not Given TIDRT [facility]ERNARDO Artificial Tears 1 drop 12/05/24 08:48 Artificial Tears Ophth Soln 15 Ml Bottle EACH EYE QID PRN Dry Eye(s) Aspirin 81 mg 12/10/24 08:05 12/10/24 09:47 Aspirin 81 Mg Chewable Tablet FEED TUBE 81 mg DAILY@0800 B[facility]ARDO Administration Benzonatate 100 mg 12/05/24 08:39 Benzonatate 100 Mg Capsule PO TID PRN cough Brimonidine Tartrate 1 drop 12/05/24 14:00 12/10/24 06:24 Brimonidine Tartrate 0.2% Op Soln 5 Ml Btl EACH EYE 1 drop Q8HR B[facility]O Administration Brinzolamide 1 drop 12/05/24 14:00 12/10/24 06:23 Brinzolamide 1% Ophth Susp 10 Ml EACH EYE 1 drop Q8HR [facility]O Administration Carvedilol 3.125 mg 12/05/24 08:00 12/07/24 09:01 Carvedilol 3.125 Mg Tablet PO Not Given BIDWM BERNARDO Dextrose 12.5 gm 12/04/24 00:50 12/05/24 13:05 Dextrose 50% 25 Gm/50 Ml Syringe IV PUSH 12.5 gm PRN PRN Administration Hypoglycemia Protocol Escitalopram Oxalate 10 mg 12/05/24 09:00 12/05/24 10:29 Escitalopram Oxalate 10 Mg Tablet PO Not Given QAM BERNARDO Fluticasone/Umeclidinium/Vilanterol 1 puff 12/05/24 09:00 12/07/24 07:55 Fluticasone/Umeclidin/Vilanter 100-62.5-25 Mcg Ellipta INHALATION Not Given DAILY [facility]O Glucose 15 gm 12/04/24 00:50 Glucose Oral Gel 15 Gm Of Glucse In 37.5 Gm Tube PO PRN PRN Hypoglycemia Protocol Heparin Sodium (Porcine) 5,000 units 12/04/24 14:00 12/10/24 06:23 Heparin Sodium 5,000 Units/Ml Vial SUB-Q 5,000 units Q8HR B[facility]O Administration Dextrose 1,000 mls @ 100 mls/hr 12/04/24 00:50 Dextrose 5% 1,000 Ml IVPB PRN PRN Hypoglycemia Protocol Piperacillin Sod/Tazobactam 50 mls @ 100 mls/hr 12/06/24 13:00 12/10/24 06:54 Sod 2.25 gm/ Sodium Chloride IVPB Infused Q8HR [facility] Infusion Albumin Human 50 mls @ 999 mls/hr 12/08/24 06:29 Albutein IVPB 01/07/25 06:28 Q10M PRN HYPOTENSION Insulin Aspart 2 - 5 units 12/07/24 12:00 12/10/24 06:55 Insulin Aspart (*Bkc) 100 Units/Ml SUB-Q Not Given Q6HR [facility] Protocol Lidocaine 1 patch 12/05/24 09:00 12/10/24 09:47 Lidocaine 5% Patch TOPICAL 1 patch DAILY [facility] Administration Loperamide HCl 2 mg 12/05/24 08:39 Loperamide Hcl 2 Mg Capsule PO Q6H PRN Diarrhea Metoprolol Tartrate 2.5 mg 12/07/24 11:12 Metoprolol Tartrate Inj 5 Mg/5 Ml Vial IV PUSH Q6H PRN Tachycardia Mirtazapine 7.5 mg 12/04/24 21:00 12/04/24 21:23 Mirtazapine 7.5 Mg Tablet PO 7.5 mg HS [facility] Administration Morphine Sulfate 2 mg 12/07/24 19:35 12/10/24 00:28 Morphine Sulfate (*Crx) 2 Mg/Ml Inj IV PUSH 2 mg Q4H PRN Administration Pain Rated 7-10 Oxycodone HCl 5 mg 12/04/24 14:02 12/10/24 09:46 Oxycodone Hcl (*Crx) 5 Mg Tab Ir PO 5 mg Q12HR PRN Administration Pain Rated 7-10 Tamsulosin HCl 0.4 mg 12/05/24 09:00 12/07/24 09:01 Tamsulosin Hcl 0.4 Mg Capsule PO Not Given DAILY [facility] Umeclidinium Winside 1 puff 12/05/24 08:00 12/05/24 12:04 Umeclidinium Winside 62.5 Mcg Ellipta [facility]ATION [facility] Results: [facility] Impressions Chest/Abdomen/Pelvis CT 12/04/24 07:39 IMPRESSION: 1. Left lower lobe pneumonia. 2. Mild to moderate bilateral renal atrophy with bilateral renal stents in expected position and similar pattern of increased density in the bilateral renal collecting systems which could represent either small residual excreted contrast as a recent contrast utilization or stones/stone fragments. Head CT 12/05/24 18:02 IMPRESSION: No acute intracranial process. Results reported telephonically to Kareen Avila RN by Dr. Medrano at 6:06 PM on 12/05/2024. Venous Doppler Study 12/05/24 20:05 IMPRESSION: Right cephalic DVT. No DVT detected in the left upper extremity. Brain MRI 12/06/24 12:55 IMPRESSION: 1. No significant change in chronic infarcts, the largest involving the plantar to the right middle cerebral and portions of the anterior cerebral artery vascular distribution. No acute intracranial process. 2. Unchanged significant decrease in caliber of the flow void at the right internal carotid artery which could be related to atherosclerosis and stenosis or decreased perfusion requirement secondary to the extensive infarction in the right cerebral hemisphere. Chest X-Ray 12/07/24 17:37 IMPRESSION: Mild pulmonary vascular congestion with a small left-sided pleural effusion. Right internal jugular tunnelled hemodialysis catheter in position and ready for immediate use. Abdomen X-Ray 12/08/24 15:34 IMPRESSION: Nasogastric tube in good position and ready for immediate use. Renal Ultrasound 12/09/24 19:53 IMPRESSION: Unremarkable renal sonogram findings. Labs Labs: Laboratory Results - last 24 hr 12/09/24 12/10/24 12/10/24 18:58 00:34 04:38 WBC 4.7 RBC 2.88 L Hgb 8.0 L Hct 26.4 L MCV 91.7 MCH 27.8 MCHC 30.3 L RDW 15.9 H Plt Count 168 MPV 9.7 Sodium Potassium Chloride Carbon Dioxide Anion Gap BUN Creatinine Estim Creat Clear Calc Estimated GFR Glucose POC Capillary Glucose 189 H 188 H Calcium Phosphorus Magnesium Iron 93 TIBC 109 L % Saturation 85 H Ferritin 703.00 H Total Bilirubin AST ALT Alkaline Phosphatase Total Protein Albumin Vitamin B12 Vitamin D 25-Hydroxy 36.6 Folate 12/10/24 06:17 WBC RBC Hgb Hct MCV MCH MCHC RDW Plt Count MPV Sodium 141 Potassium 3.8 Chloride 108 H Carbon Dioxide 23 Anion Gap 10 BUN 36 H Creatinine 3.20 H Estim Creat Clear Calc 22 Estimated GFR 19 L Glucose 180 H POC Capillary Glucose Calcium 9.2 Phosphorus 1.2 L Magnesium 2.0 Iron TIBC % Saturation Ferritin Total Bilirubin 0.6 AST 40 ALT 14 Alkaline Phosphatase 191 H Total Protein 6.1 L Albumin 3.4 L Vitamin B12 592.0 Vitamin D 25-Hydroxy Folate 3.8
[2024-12-10] MEDS: MEMANTINE 5 MG TABLET FEED TUBE (13:29)
[2024-12-10] MEDS: IPRATROPIUM 0.5 MG/ALBUTEROL SULFATE 2.5 MG AMPUL.NEB 3 ML INHALATION ×2 (13:58→20:18)
[2024-12-10] MEDS: ROSUVASTATIN 20 MG TABLET 40 MG FEED TUBE (21:29)
[2024-12-11] VITALS (36 sets, daily range): BP systolic 97–175; BP diastolic 36–93; PULSE 55–96; RESP 15–20; TEMP 36.7–37.7; O2SAT 91–98; BMI 26.6
[2024-12-11] MEDS: MORPHINE SULFATE (*CRX) 2 MG/ML INJ IV PUSH ×2 (00:24→21:05)
[2024-12-11 04:37] LABS: Hematocrit 27.4 % (42.0-52.0); Hemoglobin 8.4 g/dL (14.0-18.0); Mean Corpuscular HGB Conc 30.7 g/dl (32-36); Mean Corpuscular Hemoglobin 28.0 pg (26-34); Mean Corpuscular Volume 91.3 fl (80-100); Platelet Count Result 181 k/mm3 (150-375); Red Blood Count 3.00 M/mm3 (4.6-6.20); White Blood Count 7.6 K/mm3 (4.5-10.0)
[2024-12-11 05:09] LABS: Alanine Aminotransferase 18 U/L (6-50); Albumin Level 3.5 g/dL (3.5-5.1); Alkaline Phosphatase 201 U/L (38-126); Anion Gap 10 mmol/L (4-12); Aspartate Amino Transferase 42 U/L (17-59); Bilirubin,Total 0.5 mg/dL (0.2-1.3); Blood Urea Nitrogen 50 mg/dL (9-20); Calcium 9.6 mg/dL (8.4-10.2); Carbon Dioxide 24 mmol/L (22-30); Chloride 102 mmol/L (98-107); Estimated CRCL calculation 17 ml/min; Estimated Glomerular Filt Rate 14; Glucose 186 mg/dL (65-110); Potassium 3.4 mmol/L (3.4-5.0); Sodium 136 mmol/L (137-145); Total Protein 6.1 g/dL (6.3-8.2)
[2024-12-11] MEDS: PIPERACILLIN/TAZOBACTAM SOD 2.25 GM in SODIUM CHLORIDE 0.9% IV 50 ML 100 ML IVPB (06:06)
[2024-12-11] MEDS: oxyCODONE HCL (*CRX) 5 MG TAB IR PO ×2 (06:11→16:25)
[2024-12-11] MEDS: BRIMONIDINE TARTRATE 0.2% OP SOLN 5 ML BTL 1 DROP EACH EYE ×3 (06:11→21:00)
[2024-12-11] MEDS: BRINZOLAMIDE 1% OPHTH SUSP 10 ML 1 DROP EACH EYE ×3 (06:12→21:00)
[2024-12-11] MEDS: MEMANTINE 5 MG TABLET FEED TUBE (07:49)
[2024-12-11] MEDS: ASPIRIN 81 MG CHEWABLE TABLET FEED TUBE (07:49)
[2024-12-11] MEDS: POTASSIUM/PHOSPHORUS/SODIUM 1.5 GM PACKET 3 PACKET PO (07:49)
[2024-12-11] MEDS: SODIUM PHOSPHATE 20 MM in DEXTROSE 5% IN WATER 250 ML 50 MM IVPB (08:07)
[2024-12-11] MEDS: IPRATROPIUM 0.5 MG/ALBUTEROL SULFATE 2.5 MG AMPUL.NEB 3 ML INHALATION ×2 (08:32→21:15)
--- NOTE | 2024-12-11 13:35 | P.PNNP_ITS ---
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/dialysis x 2 sessions * discharge creatinine was 3.66mg/dl (on 11/24/24) * admission creatinine 4.6mg/dl * suspect multifactorial etiology: * possible prerenal factors * insensible losses (due to high fevers) * hypotension/hemodynamic instability * infection/early sepsis (pneumonia) * other(?) * evaluation to date noted: * CT of C/A/P noted - mild to moderate bilateral renal atrophy * normal renal ultrasound * urine electrolytes (by FeUrea) prerenal * urine eosinophils negative * UA suggestive of infection * proteinuria noted * CPK elevated but not enough to affect kidney function * no critical electrolytes, but with a mild acidosis, anemia, and encephalopathy * however, given the possible concern that AMS maybe secondary to BRYCE, initiated on [employer] WORKER/dialysis * s/p tunneled HD catheter placement (on 12/07) * HD on 12/08 and 12/09 * HD today and continue M// schedule for now * follow trend of repeat labs and UOP for potential renal recovery (2) Hypotension: Qualifiers: Hypotension type: hypotension due to hypovolemia Qualified Code(s): E 86.1 - Hypovolemia Code(s): I95.9 - Hypotension, unspecified Status: Acute Assessment and Plan: * clinically better * noted in ER/upon presentation * early sepsis(?) on top of possible volume depletion(?) * s/p IVFs and IV albumin on hold * holding BP medications * follow trend of hemodynamics (3) Acute hypoxic respiratory failure: Code(s): J96.01 - Acute respiratory failure with hypoxia Status: Acute Assessment and Plan: * presumably due to pneumonia * requiring supplemental oxygen - weaning as tolerated * follow respiratory status * monitor for fluid overload * fluid removal with HD to maintain euvolemia (4) Altered mental status: Code(s): R41.82 - Altered mental status, unspecified Status: Acute Assessment and Plan: * slow improvement in the last 24 hours * possibly due to infection +/- BRYCE; another possible CVA? * imaging noted * head CT negative in ER * repeat CT of head (12/05) and MRI of brain negative * recent LP on last admission with CSF results noted * MRI of brain (on 12/06): no significant change in chronic infarcts, the largest involving the plantar to the right middle cerebral and portions of the anterior cerebral artery vascular distribution; no acute intracranial process * Neurology recommendations noted * follow mentation (5) Pneumonia: Code(s): J18.9 - Pneumonia, unspecified organism Status: Acute Assessment and Plan: * as noted by imaging on admission * follow cultures - negative to date * follow respiratory status * on antibiotics (6) Urinary tract infection: Code(s): N39.0 - Urinary tract infection, site not specified Status: Acute Assessment and Plan: * suspected by admission UA * however, has chronic linton catheter * this was exchanged in the ER * follow culture data - negative to date * on antibiotics (7) Anemia: Code(s): D64.9 - Anemia, unspecified Status: Acute Assessment and Plan: * due to BRYCE/ARF, CKD(?), and acute illness * Epogen with HD * follow trend of H/H (8) Type 2 diabetes mellitus: Qualifiers: Diabetes mellitus usp insulin use: with terminal clerk use Diabetes mellitus complication status: with hypoglycemia Diabetes mellitus complication detail: without coma Qualified Code(s): E11.649 - Type 2 diabetes mellitus with hypoglycemia without coma; Z79.4 - shelter (current) use of insulin Code(s): E11.9 - Type 2 diabetes mellitus without complications Status: Chronic Assessment and Plan: * issues with hypoglyemia prior to admission noted * follow accu-cheks * glycemic control per hospitalist Will continue to follow. L Subjective Date/time seen: 12/11/24 13:35 Interval history: Follow-up for acute kidney injury/acute renal failure (on chronic kidney disease?) -- now requiring [employer] WORK[employer]/hemodialysis. Tolerating dialysis treatment at the time of my visit (seen on HD at 1:25pm); significant improvement in mentation noted -- more awake and conversant at this time (he states that he is hungry); still not making much urine; no other issues/events overnight or earlier this morning. Exam 2 Narrative: General: large but ill-appearing male in NAD Heart: normal S1 and S2; no rub Lungs: coarse breath sounds Abdomen: obese with positive bowel sounds Extremities: no cyanosis or clubbing; + UE edema Skin: no rash Objective Data Vital Signs Vital Signs: Vital Signs Temp Pulse Resp BP Pulse Ox O2 Del Method O2 Flow Rate 12/11/24 13:30 73 97/60 L 12/11/24 13:15 67 121/61 12/11/24 13:00 60 127/63 12/11/24 12:47 59 L 142/65 H 12/11/24 12:35 98.2 F 63 18 146/61 H 97 12/11/24 12:00 55 L 12/11/24 12:00 98 High Flow Nasal Cannula 0.5 12/11/24 11:40 98.0 F 62 16 157/56 H 97 12/11/24 10:00 57 L 12/11/24 08:38 68 16 12/11/24 08:37 64 18 12/11/24 08:00 70 12/11/24 08:00 98 High Flow Nasal Cannula 0.5 12/11/24 07:33 98.3 F 68 16 129/48 L 96 12/11/24 05:58 65 12/11/24 04:44 98.9 F 65 15 125/47 L 97 12/11/24 04:00 66 12/11/24 04:00 97 High Flow Nasal Cannula 2 12/11/24 02:00 65 12/11/24 00:00 99.7 F H 69 16 111/42 L 95 12/11/24 00:00 74 12/10/24 23:50 95 High Flow Nasal Cannula 2 12/10/24 22:00 67 12/10/24 21:21 99.4 F 73 15 133/40 L 95 12/10/24 20:28 98 High Flow Nasal Cannula 2 12/10/24 20:27 80 20 12/10/24 20:18 76 20 12/10/24 20:00 95 High Flow Nasal Cannula 2 12/10/24 20:00 61 Intake/Output Intake/Output: Intake & Output 12/08/24 12/09/24 12/10/24 12/11/24 23:59 23:59 23:59 23:59 Intake Total 550 1040 2120 2000 Output Total 675 1125 0 2075 Balance -125 -85 2119 Meds/Results Medications: Active Medications Generic Name Dose Route Start Last Admin Trade Name Freq PRN Reason Stop Dose Admin Acetaminophen 650 mg 12/04/24 01:55 Acetaminophen 650 Mg Suppository RECTAL Q6H PRN Mild Pain (1-3) or Fever Acetaminophen 650 mg 12/05/24 08:39 Acetaminophen 325 Mg Tablet PO Q8H PRN Pain, Mild Albuterol 2 puff 12/04/24 14:20 Albuterol Sulfate (*Sp) Aerosol 1 Puff INHALATION Q4HRT PRN Wheezing Albuterol/Ipratropium 3 ml 12/05/24 14:00 12/11/24 15:03 Ipratropium 0.5 Mg/Albuterol Sulfate 2.5 Mg Ampul.Neb 3 Ml INHALATION Not Given TIDRT BERNARDO Amoxicillin/Clavulanate Potassium 500 mg 12/11/24 18:00 12/11/24 17:39 Amoxicillin/Clavulanate K Susp 500 Mg/6.25 Ml Ud FEED TUBE 12/12/24 21:01 500 mg Q12HR BERNARDO Administration Artificial Tears 1 drop 12/05/24 08:48 Artificial Tears Ophth Soln 15 Ml Bottle EACH EYE QID PRN Dry Eye(s) Aspirin 81 mg 12/10/24 08:05 12/11/24 07:49 Aspirin 81 Mg Chewable Tablet FEED TUBE 81 mg DAILY@0800 BERNARDO Administration Benzonatate 100 mg 12/05/24 08:39 Benzonatate 100 Mg Capsule PO TID PRN cough Brimonidine Tartrate 1 drop 12/05/24 14:00 12/11/24 16:28 Brimonidine Tartrate 0.2% Op Soln 5 Ml Btl EACH EYE 1 drop Q8HR BERNARDO Administration Brinzolamide 1 drop 12/05/24 14:00 12/11/24 16:29 Brinzolamide 1% Ophth Susp 10 Ml EACH EYE 1 drop Q8HR BERNARDO Administration Carvedilol 3.125 mg 12/05/24 08:00 12/07/24 09:01 Carvedilol 3.125 Mg Tablet PO Not Given BIDWM BERNARDO Dextrose 12.5 gm 12/04/24 00:50 12/05/24 13:05 Dextrose 50% 25 Gm/50 Ml Syringe IV PUSH 12.5 gm PRN PRN Administration Hypoglycemia Protocol Escitalopram Oxalate 10 mg 12/05/24 09:00 12/05/24 10:29 Escitalopram Oxalate 10 Mg Tablet PO Not Given QAM BERNARDO Fluticasone/Umeclidinium/Vilanterol 1 puff 12/05/24 09:00 12/07/24 07:55 Fluticasone/Umeclidin/Vilanter 100-62.5-25 Mcg Ellipta INHALATION Not Given DAILY BERNARDO Glucose 15 gm 12/04/24 00:50 Glucose Oral Gel 15 Gm Of Glucse In 37.5 Gm Tube PO PRN PRN Hypoglycemia Protocol Heparin Sodium (Porcine) 5,000 units 12/04/24 14:00 12/11/24 16:25 Heparin Sodium 5,000 Units/Ml Vial SUB-Q 5,000 units Q8HR BERNARDO Administration Dextrose 1,000 mls @ 100 mls/hr 12/04/24 00:50 Dextrose 5% 1,000 Ml IVPB PRN PRN Hypoglycemia Protocol Albumin Human 50 mls @ 999 mls/hr 12/08/24 06:29 Albutein IVPB 01/07/25 06:28 Q10M PRN HYPOTENSION Insulin Aspart 2 - 5 units 12/07/24 12:00 12/11/24 17:37 Insulin Aspart (*Bkc) 100 Units/Ml SUB-Q Not Given Q6HR BERNARDO Protocol Lidocaine 1 patch 12/05/24 09:00 12/11/24 16:29 Lidocaine 5% Patch TOPICAL 1 patch DAILY BERNARDO Administration Loperamide HCl 2 mg 12/05/24 08:39 Loperamide Hcl 2 Mg Capsule PO Q6H PRN Diarrhea Memantine 5 mg 12/10/24 11:00 12/11/24 07:49 Memantine 5 Mg Tablet FEED TUBE 5 mg DAILY BERNARDO Administration Metoprolol Tartrate 2.5 mg 12/07/24 11:12 Metoprolol Tartrate Inj 5 Mg/5 Ml Vial IV PUSH Q6H PRN Tachycardia Mirtazapine 7.5 mg 12/04/24 21:00 12/04/24 21:23 Mirtazapine 7.5 Mg Tablet PO 7.5 mg HS BERNARDO Administration Morphine Sulfate 2 mg 12/07/24 19:35 12/11/24 00:24 Morphine Sulfate (*Crx) 2 Mg/Ml Inj IV PUSH 2 mg Q4H PRN Administration Pain Rated 7-10 Oxycodone HCl 5 mg 12/04/24 14:02 12/11/24 16:25 Oxycodone Hcl (*Crx) 5 Mg Tab Ir PO 5 mg Q12HR PRN Administration Pain Rated 7-10 Rosuvastatin Calcium 40 mg 12/10/24 21:00 12/10/24 21:29 Rosuvastatin 20 Mg Tablet FEED TUBE 40 mg QHS [facility] Administration Tamsulosin HCl 0.4 mg 12/05/24 09:00 12/07/24 09:01 Tamsulosin Hcl 0.4 Mg Capsule PO Not Given DAILY [facility] Umeclidinium [place] 1 puff 12/05/24 08:00 12/05/24 12:04 Umeclidinium [place] 62.5 Mcg Ellipta IN[facility]ATION [facility]: [facility] Impressions Chest/Abdomen/Pelvis CT 12/04/24 07:39 IMPRESSION: 1. Left lower lobe pneumonia. 2. Mild to moderate bilateral renal atrophy with bilateral renal stents in expected position and similar pattern of increased density in the bilateral renal collecting systems which could represent either small residual excreted contrast as a recent contrast utilization or stones/stone fragments. Head CT 12/05/24 18:02 IMPRESSION: No acute intracranial process. Results reported telephonically to Kareen Avila RN by Dr. Medrano at 6:06 PM on 12/05/2024. Venous Doppler Study 12/05/24 20:05 IMPRESSION: Right cephalic DVT. No DVT detected in the left upper extremity. Brain MRI 12/06/24 12:55 IMPRESSION: 1. No significant change in chronic infarcts, the largest involving the plantar to the right middle cerebral and portions of the anterior cerebral artery vascular distribution. No acute intracranial process. 2. Unchanged significant decrease in caliber of the flow void at the right internal carotid artery which could be related to atherosclerosis and stenosis or decreased perfusion requirement secondary to the extensive infarction in the right cerebral hemisphere. Chest X-Ray 12/07/24 17:37 IMPRESSION: Mild pulmonary vascular congestion with a small left-sided pleural effusion. Right internal jugular tunnelled hemodialysis catheter in position and ready for immediate use. Abdomen X-Ray 12/08/24 15:34 IMPRESSION: Nasogastric tube in good position and ready for immediate use. Renal Ultrasound 12/09/24 19:53 IMPRESSION: Unremarkable renal sonogram findings. Labs Labs: Laboratory Tests 12/11/24 04:18 12/11/24 04:18 Calcium 9.6 Phosphorus < 1.0 L Total Bilirubin 0.5 AST 42 ALT 18 Alkaline Phosphatase 201 H Total Protein 6.1 L Albumin 3.5
--- NOTE | 2024-12-11 15:55 | P.PNIM_ITS ---
Progress Note: A&P Assessment and Plan (1) Sepsis: Code(s): A41.9 - Sepsis, unspecified organism Status: Acute Assessment and Plan: Patient presents with AMS and found to have sepsis, HoTN and respiratory failure related to multifocal PNA. Chest CT showing worsening consolidation and surrounding tree-in-bud opacities in the LLL consistent with pneumonia. Concern for HAP given recent hospitalization. Consider aspiration. BCx negative UCx negative MRSA negative Mental status improved. Fevers curve better. WBC normal. Currently on Zosyn only. Weaning O2 as tolerated. Will check swallow study. Change to Augmentin. (2) Sepsis associated hypotension: Code(s): A41.9 - Sepsis, unspecified organism; I95.9 - Hypotension, unspecified Status: Acute Assessment and Plan: BP remains well controlled. As above (3) Acute hypoxic respiratory failure: Code(s): J96.01 - Acute respiratory failure with hypoxia Status: Acute Assessment and Plan: Acute hypoxemic resp failure present on admission related to PNA. He required high flow NC at times but this has improved. Weaned to 0.5L oxygen Continue bronchodilators. Titrate oxygen (4) Altered mental status: Code(s): R41.82 - Altered mental status, unspecified Status: Acute Assessment and Plan: Patient presents with AMS. Concern for CVA but CT head showing no acute intracranial process but does have chronic findings. MRI brain showing no acute findings but again shows a large region encephalomalacia involving the majority of the right frontal and temporal lobes, significant portion of the right parietal lobe and the right basal ganglia left. Additional encephalomalacia involving the right occipital lobe. Also multiple areas of old infarcts. Please see report for details. EEG showing significant abnormal EEG due to presence of moderate diffuse background slowing. In addition sharp and wave complexes were seen throughout the recording suggestive of most likely triphasic waves such as may be seen with metabolic encephalopathy. Neurology consulted. Consider metabolic from BRYCE and PNA. Mental status is improving. Continue with aspirin. Continue treatment as above and supportive care. Continue NGT feedings. Check swallow study. (5) Acute kidney injury: Code(s): N17.9 - Acute kidney failure, unspecified Status: Acute Assessment and Plan: Recent acute renal failure with creatinine peaking to 7 requiring temporary dialysis. Cr was down to 3.6 at discharge on 11/24/24. Readmission with creatinine of 4.6 and this continued to worsen. Nephrology consulted Tunneled HD catheter placement 12/07 and underwent dialysis 12/08 and 12/09 Mental status improved. Follow (6) Multifocal pneumonia: Code(s): J18.8 - Other pneumonia, unspecified organism Status: Acute Assessment and Plan: As above. (7) Type 2 diabetes mellitus: Qualifiers: Diabetes mellitus residential insulin use: with termite treater helper use Diabetes mellitus complication status: with hypoglycemia Diabetes mellitus complication detail: without coma Qualified Code(s): E11.649 - Type 2 diabetes mellitus with hypoglycemia without coma; Z79.4 - salvage determiner (current) use of insulin Code(s): E11.9 - Type 2 diabetes mellitus without complications Status: Chronic Assessment and Plan: A1c 5.0%. The patient's blood glucose was reviewed on 12/11 Glucose remains mostly reasonable Continue AccuCheks covering with sliding scale. Hypoglycemia protocol available as needed. Continue to monitor (8) Anemia: Code(s): D64.9 - Anemia, unspecified Status: Acute Assessment and Plan: Hgb low but stable in the 7-8 range. [place] to be multifactorial Epogen given. Follow and transfuse for Hgb <7. (9) Urinary tract infection: Code(s): N39.0 - Urinary tract infection, site not specified Status: Acute Assessment and Plan: UA noted. UCx negative. UTI ruled out Plan Right cephalic vein thrombosis - on dvt proph. this is superficial vein thrombosis. continue conservative mgmt HTN - Blood pressure noted. Continue to monitor pSBO - Recent partial small-bowel obstruction/hydrops gallbladder at last hospitalization. Monitor stool output. Kidney stones - Mildly obstructing left ureteral calculus and right renal stones status post cystoscopy bilateral retrograde left ureteroscopy stone extraction bilateral ureteral stent placement 11/16/2024 and Huddleston catheter placement. urology team on board. Remove Huddleston? DVT prophylaxis on Sq Heparin Code status - full code Subjective Date/time seen: 12/11/24 15:55 Interval history: 69yo male with hx of CVA, wheelchair dependent, COPD, CAD, JAMES, DM and HTN here for altered mental status. Patient is more alert and somewhat oriented. He complains of buttock pain. No CP or abd pain. Feels hungry. Exam Narrative: AF 98.4 175/75 86 16 98% 0.5L Gen - chronically ill appearing male in [place] HEENT - NGT secured Chest - lungs clear anteriorly to quiet respirations. nml RR. Right upper chest tunneled HD catheter in situ CV - RRR S1/S2. Tele showing no significant dysrhythmias Abd - Soft, obese, NT - Hudd[place] secured with scant amount of dark brown urine in bag Ext -edematous extremities worse in the upper extremities but better. Neuro - garbled speech but improved. Oriented x1. Psych -difficult to assess. Skin -cool and dry. Weeping noted from left>right upper extremity but less pronounced. Objective Data Vital Signs Vital Signs: Vital Signs - 24 hr 12/10/24 16:00 12/10/24 18:00 12/10/24 20:00 Temperature Pulse Rate 58 L 58 L 61 Respiratory Rate Blood Pressure Pulse Oximetry Oxygen Delivery Oxygen Flow Rate 12/10/24 20:00 12/10/24 20:18 12/10/24 20:27 Temperature Pulse Rate 76 80 Respiratory Rate 20 20 Blood Pressure Pulse Oximetry 95 Oxygen Delivery High Flow Nasal Cannula Oxygen Flow Rate 2 12/10/24 20:28 12/10/24 21:21 12/10/24 22:00 Temperature 99.4 F Pulse Rate 73 67 Respiratory Rate 15 Blood Pressure 133/40 L Pulse Oximetry 98 95 Oxygen Delivery High Flow Nasal Cannula Oxygen Flow Rate 2 12/10/24 23:50 12/11/24 00:00 12/11/24 00:00 Temperature 99.7 F H Pulse Rate 74 69 Respiratory Rate 16 Blood Pressure 111/42 L Pulse Oximetry 95 95 Oxygen Delivery High Flow Nasal Cannula Oxygen Flow Rate 2 12/11/24 02:00 12/11/24 04:00 12/11/24 04:00 Temperature Pulse Rate 65 66 Respiratory Rate Blood Pressure Pulse Oximetry 97 Oxygen Delivery High Flow Nasal Cannula Oxygen Flow Rate 2 12/11/24 04:44 12/11/24 05:58 12/11/24 07:33 Temperature 98.9 F 98.3 F Pulse Rate 65 65 68 Respiratory Rate 15 16 Blood Pressure 125/47 L 129/48 L Pulse Oximetry 97 96 Oxygen Delivery Oxygen Flow Rate 12/11/24 08:00 12/11/24 08:00 12/11/24 08:37 Temperature Pulse Rate 70 64 Respiratory Rate 18 Blood Pressure Pulse Oximetry 98 Oxygen Delivery High Flow Nasal Cannula Oxygen Flow Rate 0.5 12/11/24 08:38 12/11/24 10:00 12/11/24 11:40 Temperature 98.0 F Pulse Rate 68 57 L 62 Respiratory Rate 16 16 Blood Pressure 157/56 H Pulse Oximetry 97 Oxygen Delivery Oxygen Flow Rate 12/11/24 12:00 12/11/24 12:00 12/11/24 12:35 Temperature 98.2 F Pulse Rate 55 L 63 Respiratory Rate 18 Blood Pressure 146/61 H Pulse Oximetry 98 97 Oxygen Delivery High Flow Nasal Cannula Oxygen Flow Rate 0.5 12/11/24 12:47 12/11/24 13:00 12/11/24 13:15 Temperature Pulse Rate 59 L 60 67 Respiratory Rate Blood Pressure 142/65 H 127/63 121/61 Pulse Oximetry Oxygen Delivery Oxygen Flow Rate 12/11/24 13:30 12/11/24 13:45 12/11/24 14:00 Temperature Pulse Rate 73 67 69 Respiratory Rate Blood Pressure 97/60 L 127/67 125/64 Pulse Oximetry Oxygen Delivery Oxygen Flow Rate 12/11/24 14:00 12/11/24 14:15 12/11/24 14:30 Temperature Pulse Rate 88 92 88 Respiratory Rate Blood Pressure 101/66 119/63 Pulse Oximetry Oxygen Delivery Oxygen Flow Rate 12/11/24 14:45 12/11/24 15:00 12/11/24 15:15 Temperature Pulse Rate 84 91 94 Respiratory Rate Blood Pressure 118/71 106/62 127/93 H Pulse Oximetry Oxygen Delivery Oxygen Flow Rate 12/11/24 15:30 12/11/24 15:47 12/11/24 15:54 Temperature 98.4 F Pulse Rate 96 83 86 Respiratory Rate 16 Blood Pressure 148/55 H 116/70 175/75 H Pulse Oximetry 98 Oxygen Delivery Oxygen Flow Rate Intake/Output Intake/Output: Intake & Output 12/08/24 12/09/24 12/10/24 12/11/24 23:59 23:59 23:59 23:59 Intake Total 550 1040 2120 1000 Output Total 675 1125 0 75 Balance -125 -85 2120 925 Meds/Results Medications: Active Medications Generic Name Dose Route Start Last Admin Trade Name Freq PRN Reason Stop Dose Admin Acetaminophen 650 mg 12/04/24 01:55 Acetaminophen 650 Mg Suppository RECTAL Q6H PRN Mild Pain (1-3) or Fever Acetaminophen 650 mg 12/05/24 08:39 Acetaminophen 325 Mg Tablet PO Q8H PRN Pain, Mild Albuterol 2 puff 12/04/24 14:20 Albuterol Sulfate (*Sp) Aerosol 1 Puff INHALATION Q4HRT PRN Wheezing Albuterol/Ipratropium 3 ml 12/05/24 14:00 12/11/24 15:03 Ipratropium 0.5 Mg/Albuterol Sulfate 2.5 Mg Ampul.Neb 3 Ml INHALATION Not Given TIDRT BERNARDO Artificial Tears 1 drop 12/05/24 08:48 Artificial Tears Ophth Soln 15 Ml Bottle EACH EYE QID PRN Dry Eye(s) Aspirin 81 mg 12/10/24 08:05 12/11/24 07:49 Aspirin 81 Mg Chewable Tablet FEED TUBE 81 mg DAILY@0800 BERNARDO Administration Benzonatate 100 mg 12/05/24 08:39 Benzonatate 100 Mg Capsule PO TID PRN cough Brimonidine Tartrate 1 drop 12/05/24 14:00 12/11/24 06:11 Brimonidine Tartrate 0.2% Op Soln 5 Ml Btl EACH EYE 1 drop Q8HR BERNARDO Administration Brinzolamide 1 drop 12/05/24 14:00 12/11/24 06:12 Brinzolamide 1% Ophth Susp 10 Ml EACH EYE 1 drop Q8HR BERNARDO Administration Carvedilol 3.125 mg 12/05/24 08:00 12/07/24 09:01 Carvedilol 3.125 Mg Tablet PO Not Given BIDWM BERNARDO Dextrose 12.5 gm 12/04/24 00:50 12/05/24 13:05 Dextrose 50% 25 Gm/50 Ml Syringe IV PUSH 12.5 gm PRN PRN Administration Hypoglycemia Protocol Escitalopram Oxalate 10 mg 12/05/24 09:00 12/05/24 10:29 Escitalopram Oxalate 10 Mg Tablet PO Not Given QAM BERNARDO Fluticasone/Umeclidinium/Vilanterol 1 puff 12/05/24 09:00 12/07/24 07:55 Fluticasone/Umeclidin/Vilanter 100-62.5-25 Mcg Ellipta INHALATION Not Given DAILY BERNARDO Glucose 15 gm 12/04/24 00:50 Glucose Oral Gel 15 Gm Of Glucse In 37.5 Gm Tube PO PRN PRN Hypoglycemia Protocol Heparin Sodium (Porcine) 5,000 units 12/04/24 14:00 12/11/24 06:11 Heparin Sodium 5,000 Units/Ml Vial SUB-Q 5,000 units Q8HR BERNARDO Administration Dextrose 1,000 mls @ 100 mls/hr 12/04/24 00:50 Dextrose 5% 1,000 Ml IVPB PRN PRN Hypoglycemia Protocol Piperacillin Sod/Tazobactam 50 mls @ 100 mls/hr 12/06/24 13:00 12/11/24 06:36 Sod 2.25 gm/ Sodium Chloride IVPB Infused Q8HR BERNARDO Infusion Albumin Human 50 mls @ 999 mls/hr 12/08/24 06:29 Albutein IVPB 01/07/25 06:28 Q10M PRN HYPOTENSION Insulin Aspart 2 - 5 units 12/07/24 12:00 12/11/24 13:11 Insulin Aspart (*Bkc) 100 Units/Ml SUB-Q Not Given Q6HR [facility] Protocol Lidocaine 1 patch 12/05/24 09:00 12/10/24 09:47 Lidocaine 5% Patch TOPICAL 1 patch DAILY BERNARDO Administration Loperamide HCl 2 mg 12/05/24 08:39 Loperamide Hcl 2 Mg Capsule PO Q6H PRN Diarrhea Memantine 5 mg 12/10/24 11:00 12/11/24 07:49 Memantine 5 Mg Tablet FEED TUBE 5 mg DAILY BERNARDO Administration Metoprolol Tartrate 2.5 mg 12/07/24 11:12 Metoprolol Tartrate Inj 5 Mg/5 Ml Vial IV PUSH Q6H PRN Tachycardia Mirtazapine 7.5 mg 12/04/24 21:00 12/04/24 21:23 Mirtazapine 7.5 Mg Tablet PO 7.5 mg HS BERNARDO Administration Morphine Sulfate 2 mg 12/07/24 19:35 12/11/24 00:24 Morphine Sulfate (*Crx) 2 Mg/Ml Inj IV PUSH 2 mg Q4H PRN Administration Pain Rated 7-10 Oxycodone HCl 5 mg 12/04/24 14:02 12/11/24 06:11 Oxycodone Hcl (*Crx) 5 Mg Tab Ir PO 5 mg Q12HR PRN Administration Pain Rated 7-10 Rosuvastatin Calcium 40 mg 12/10/24 21:00 12/10/24 21:29 Rosuvastatin 20 Mg Tablet FEED TUBE 40 mg QHS [facility] Administration Tamsulosin HCl 0.4 mg 12/05/24 09:00 12/07/24 09:01 Tamsulosin Hcl 0.4 Mg Capsule PO Not Given DAILY [facility] Umeclidinium [place] 1 puff 12/05/24 08:00 12/05/24 12:04 Umeclidinium [place] 62.5 Mcg Ellipta [facility]: [facility] Impressions Chest/Abdomen/Pelvis CT 12/04/24 07:39 IMPRESSION: 1. Left lower lobe pneumonia. 2. Mild to moderate bilateral renal atrophy with bilateral renal stents in expected position and similar pattern of increased density in the bilateral renal collecting systems which could represent either small residual excreted contrast as a recent contrast utilization or stones/stone fragments. Head CT 12/05/24 18:02 IMPRESSION: No acute intracranial process. Results reported telephonically to Kareen Avila RN by Dr. Medrano at 6:06 PM on 12/05/2024. Venous Doppler Study 12/05/24 20:05 IMPRESSION: Right cephalic DVT. No DVT detected in the left upper extremity. Brain MRI 12/06/24 12:55 IMPRESSION: 1. No significant change in chronic infarcts, the largest involving the plantar to the right middle cerebral and portions of the anterior cerebral artery vascular distribution. No acute intracranial process. 2. Unchanged significant decrease in caliber of the flow void at the right internal carotid artery which could be related to atherosclerosis and stenosis or decreased perfusion requirement secondary to the extensive infarction in the right cerebral hemisphere. Chest X-Ray 12/07/24 17:37 IMPRESSION: Mild pulmonary vascular congestion with a small left-sided pleural effusion. Right internal jugular tunnelled hemodialysis catheter in position and ready for immediate use. Abdomen X-Ray 12/08/24 15:34 IMPRESSION: Nasogastric tube in good position and ready for immediate use. Renal Ultrasound 12/09/24 19:53 IMPRESSION: Unremarkable renal sonogram findings. Labs Labs: Laboratory Results - last 24 hr 12/10/24 12/11/24 12/11/24 18:33 00:27 04:18 WBC 7.6 RBC 3.00 L Hgb 8.4 L Hct 27.4 L MCV 91.3 MCH 28.0 MCHC 30.7 L RDW 15.9 H Plt Count 181 MPV 9.6 Sodium 136 L Potassium 3.4 Chloride 102 Carbon Dioxide 24 Anion Gap 10 BUN 50 H D Creatinine 4.32 H Estim Creat Clear Calc 17 Estimated GFR 14 L Glucose 186 H POC Capillary Glucose 166 H 186 H Calcium 9.6 Phosphorus < 1.0 L Total Bilirubin 0.5 AST 42 ALT 18 Alkaline Phosphatase 201 H Total Protein 6.1 L Albumin 3.5 12/11/24 11:53 WBC RBC Hgb Hct MCV MCH MCHC RDW Plt Count MPV Sodium Potassium Chloride Carbon Dioxide Anion Gap BUN Creatinine Estim Creat Clear Calc Estimated GFR Glucose POC Capillary Glucose 212 H Calcium Phosphorus Total Bilirubin AST ALT Alkaline Phosphatase Total Protein Albumin
[2024-12-11] MEDS: LIDOCAINE 5% PATCH 1 PATCH TOPICAL (16:29)
[2024-12-11] MEDS: AMOXICILLIN/CLAVULANATE K SUSP 500 MG/6.25 ML UD FEED TUBE (17:39)
[2024-12-11] MEDS: ROSUVASTATIN 20 MG TABLET 40 MG FEED TUBE (20:48)
[2024-12-12] VITALS (24 sets, daily range): BP systolic 101–158; BP diastolic 37–101; PULSE 54–68; RESP 16–20; TEMP 36.8–37.4; O2SAT 93–100
[2024-12-12 05:36] LABS: Hematocrit 25.1 % (42.0-52.0); Hemoglobin 7.6 g/dL (14.0-18.0); Mean Corpuscular HGB Conc 30.3 g/dl (32-36); Mean Corpuscular Hemoglobin 27.9 pg (26-34); Mean Corpuscular Volume 92.3 fl (80-100); Platelet Count Result 191 k/mm3 (150-375); Red Blood Count 2.72 M/mm3 (4.6-6.20); White Blood Count 15.2 K/mm3 (4.5-10.0)
[2024-12-12] MEDS: ALBUTEROL SULFATE (*SP) AEROSOL 1 PUFF 2 PUFF INHALATION (05:41)
[2024-12-12] MEDS: LIDOCAINE 5% PATCH 1 PATCH TOPICAL (05:45)
[2024-12-12] MEDS: BRINZOLAMIDE 1% OPHTH SUSP 10 ML 1 DROP EACH EYE ×3 (05:46→21:57)
[2024-12-12] MEDS: BRIMONIDINE TARTRATE 0.2% OP SOLN 5 ML BTL 1 DROP EACH EYE ×3 (05:46→21:57)
[2024-12-12 06:07] LABS: Albumin Level 3.1 g/dL (3.5-5.1); Anion Gap 8 mmol/L (4-12); Blood Urea Nitrogen 39 mg/dL (9-20); Calcium 8.9 mg/dL (8.4-10.2); Carbon Dioxide 29 mmol/L (22-30); Chloride 100 mmol/L (98-107); Estimated CRCL calculation 20 ml/min; Estimated Glomerular Filt Rate 17; Glucose 197 mg/dL (65-110); Magnesium 1.8 mg/dL (1.6-2.3); Potassium 3.6 mmol/L (3.4-5.0); Sodium 137 mmol/L (137-145)
[2024-12-12 06:42] LABS: Band Neutrophils Percent 13 % (0-6); Eosinophils Absolute Manual 0.76 K/mm3 (0.02-0.50); Eosinophils Percent Manual 5 % (0-4); Lymphocytes Absolute Manual 1.21 K/mm3 (1.1-4.5); Lymphocytes Percent Manual 8 % (18-44); Monocytes Absolute Manual 0.60 K/mm3 (0.1-0.90); Monocytes Percent Manual 4 % (3-9); Neutrophils Absolute Manual 12.31 K/mm3 (1.3-6.7); Neutrophils Percent Manual 68 % (46-73); Total Cells Counted 100
[2024-12-12 06:43] LABS: Metamyelocytes Percent 2 %; Smudge Cells PRESENT
[2024-12-12 06:44] LABS: Anisocytosis 1+
[2024-12-12 06:45] LABS: Schistocytes None Seen
--- NOTE | 2024-12-12 08:39 | PCSTNOTE ---
Please refer to the Bedside Swallow Evaluation in the EMR. Please note, silent aspiration cannot be ruled out at bedside. The pt is a 69 year old male with a history of altered mental status and previous NPO status requiring a feeding tube for nutrition. Orders received from the physician to complete the BSE to assess for initiating PO nutrition. Pt was positioned upright in bed prior to PO trials. An oral mechanism exam was completed. The pt demonstrated mild confusion when following directives and required frequent models of tasks. The oral mechanism exam was remarkable for left sided weakness at rest and during active trials. The oral stage was remarkable for prolonged mastication and mild oral residue with the hard solid trials. A liquid wash was effective in clearing this residue. Across trials, the pharyngeal stage of his swallow was unremarkable. No coughing or throat clearing was noted and his voice was clear post PO trials. Recommendations: 1. Minced Moist/ Level 5 2. Thin liquids / Level 0 3. Upright, small bites and sips, alternating solids and liquids, check for pocketing 4. One-to-One Supervision for all PO May consider MBS to rule out silent aspiration given medical history and recent NPO status.
[2024-12-12] MEDS: IPRATROPIUM 0.5 MG/ALBUTEROL SULFATE 2.5 MG AMPUL.NEB 3 ML INHALATION ×2 (08:44→20:55)
[2024-12-12] MEDS: POTASSIUM/PHOSPHORUS/SODIUM 1.5 GM PACKET 2 PACKET FEED TUBE (09:53)
[2024-12-12] MEDS: MEMANTINE 5 MG TABLET FEED TUBE (09:53)
[2024-12-12] MEDS: AMOXICILLIN/CLAVULANATE K SUSP 500 MG/6.25 ML UD FEED TUBE ×2 (09:53→20:31)
[2024-12-12] MEDS: ASPIRIN 81 MG CHEWABLE TABLET FEED TUBE (09:53)
--- NOTE | 2024-12-12 11:22 | P.PNNP_ITS ---
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 * discharge creatinine was 3.66mg/dl (on 11/24/24) * admission creatinine 4.6mg/dl * suspect multifactorial etiology: * possible prerenal factors * insensible losses (due to high fevers) * hypotension/hemodynamic instability * infection/early sepsis (pneumonia) * other(?) * evaluation to date noted: * CT of C/A/P noted - mild to moderate bilateral renal atrophy * normal renal ultrasound * urine electrolytes (by FeUrea) prerenal * urine eosinophils negative * UA suggestive of infection * proteinuria noted * CPK elevated but not enough to affect kidney function * no critical electrolytes, but with a mild acidosis, anemia, and encephalopathy * however, given the possible concern that AMS maybe secondary to BRYCE, initiated on [employer]OS[employer] MACHINE OPERATOR/dialysis * s/p tunneled HD catheter placement (on 12/07) * HD on 12/08 and 12/09 * HD tomorrow and continue M/W/F schedule for now * follow trend of repeat labs and UOP for potential renal recovery (2) Hypotension: Qualifiers: Hypotension type: hypotension due to hypovolemia Qualified Code(s): E86.1 - Hypovolemia Code(s): I95.9 - Hypotension, unspecified Status: Acute Assessment and Plan: * clinically better * noted in ER/upon presentation * early sepsis(?) on top of possible volume depletion(?) * s/p IVFs and IV albumin on hold * holding BP medications * follow trend of hemodynamics (3) Acute hypoxic respiratory failure: Code(s): J96.01 - Acute respiratory failure with hypoxia Status: Acute Assessment and Plan: * presumably due to pneumonia * requiring supplemental oxygen - weaning as tolerated * follow respiratory status * monitor for fluid overload * fluid removal with HD to maintain euvolemia (4) Altered mental status: Code(s): R41.82 - Altered mental status, unspecified Status: Acute Assessment and Plan: * slow improvement in the last 24 hours * possibly due to infection +/- BRYCE; another possible CVA? * imaging noted * head CT negative in ER * repeat CT of head (12/05) and MRI of brain negative * recent LP on last admission with CSF results noted * MRI of brain (on 12/06): no significant change in chronic infarcts, the largest involving the plantar to the right middle cerebral and portions of the anterior cerebral artery vascular distribution; no acute intracranial process * Neurology recommendations noted * follow mentation (5) Pneumonia: Code(s): J18.9 - Pneumonia, unspecified organism Status: Acute Assessment and Plan: * as noted by imaging on admission * follow cultures - negative to date * follow respiratory status * on antibiotics (6) Urinary tract infection: Code(s): N39.0 - Urinary tract infection, site not specified Status: Acute Assessment and Plan: * suspected by admission UA * however, has chronic linton catheter * this was exchanged in the ER * follow culture data - negative to date * on antibiotics (7) Anemia: Code(s): D64.9 - Anemia, unspecified Status: Acute Assessment and Plan: * due to BRYCE/ARF, CKD(?), and acute illness * Epogen with HD * follow trend of H/H (8) Type 2 diabetes mellitus: Qualifiers: Diabetes mellitus complication detail: without coma Diabetes mellitus complication status: with hypoglycemia Diabetes mellitus mcc insulin use: with superintendent terminal use Qualified Code(s): E11.649 - Type 2 diabetes mellitus with hypoglycemia without coma; Z79.4 - tank terminal gauger (current) use of insulin Code(s): E11.9 - Type 2 diabetes mellitus without complications Status: Chronic Assessment and Plan: * issues with hypoglyemia prior to admission noted * follow accu-cheks * glycemic control per hospitalist Will continue to follow. 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 Mentation continues to improve -- awake and alert but still with some on/off confusion (knows name, year, current president...but difficulty with location) and able to make needs known; tolerated dialysis treatment yesterday without any issues or problems; stable hemodynamics and no fevers in the last 24 hours; no acute distress voiced at the time of my visit. Exam Narrative: General: large but ill-appearing male in NAD Heart: normal S1 and S2; no rub Lungs: coarse breath sounds Abdomen: obese with positive bowel sounds Extremities: no cyanosis or clubbing; + UE edema Skin: no nodules Objective Data Vital Signs Vital Signs: Vital Signs Temp Pulse Resp BP Pulse Ox O2 Del Method O2 Flow Rate 12/12/24 11:13 98.7 F 61 16 139/101 H 99 12/12/24 10:00 56 L 12/12/24 08:56 56 L 17 12/12/24 08:53 56 L 17 100 High Flow Nasal Cannula 3 12/12/24 08:45 54 L 17 12/12/24 08:00 55 L 12/12/24 08:00 95 High Flow Nasal Cannula 3 12/12/24 07:25 98.7 F 59 L 16 109/37 L 100 12/12/24 06:00 58 L 12/12/24 05:44 62 16 12/12/24 04:11 99.3 F 60 20 101/40 L 99 12/12/24 04:00 61 12/12/24 04:00 99 Nasal Cannula 3 12/12/24 02:00 61 12/12/24 00:00 66 12/12/24 00:00 98 Nasal Cannula 3 12/11/24 23:48 99.4 F 62 20 107/36 L 98 12/11/24 22:00 67 12/11/24 21:22 67 16 12/11/24 21:17 94 Room Air 12/11/24 21:17 66 16 12/11/24 20:00 67 12/11/24 20:00 92 Nasal Cannula 3 12/11/24 19:51 99.9 F H 78 20 119/45 L 92 12/11/24 18:00 74 12/11/24 16:46 99.6 F 78 20 139/63 91 12/11/24 16:00 93 08/04/25 16:00 97 Room Air 12/11/24 15:54 98.4 F 86 16 175/75 H 98 12/11/24 15:47 83 116/70 12/11/24 15:30 96 148/55 H 12/11/24 15:15 94 127/93 H 12/11/24 15:00 91 106/62 12/11/24 14:45 84 118/71 12/11/24 14:30 88 119/63 12/11/24 14:15 92 101/66 12/11/24 14:00 88 12/11/24 14:00 69 125/64 12/11/24 13:45 67 127/67 12/11/24 13:30 73 97/60 L 12/11/24 13:15 67 121/61 12/11/24 13:00 60 127/63 12/11/24 12:47 59 L 142/65 H 12/11/24 12:35 98.2 F 63 18 146/61 H 97 Intake/Output Intake/Output: Intake & Output 12/09/24 12/10/24 12/11/24 12/12/24 23:59 23:59 23:59 23:59 Intake Total 1040 0 1999 1916 Output Total 1125 0 2075 0 Balance -85 2119 -1915 Meds/Results Medications: Active Medications Generic Name Dose Route Start Last Admin Trade Name Freq PRN Reason Stop Dose Admin Acetaminophen 650 mg 12/04/24 01:55 Acetaminophen 650 Mg Suppository RECTAL Q6H PRN Mild Pain (1-3) or Fever Acetaminophen 650 mg 12/05/24 08:39 Acetaminophen 325 Mg Tablet PO Q8H PRN Pain, Mild Albuterol 2 puff 12/04/24 14:20 12/12/24 05:41 Albuterol Sulfate (*Sp) Aerosol 1 Puff INHALATION 2 puff Q4HRT PRN Administration Wheezing Albuterol/Ipratropium 3 ml 12/05/24 14:00 12/12/24 08:44 Ipratropium 0.5 Mg/Albuterol Sulfate 2.5 Mg Ampul.Neb 3 Ml INHALATION 3 ml TIDRT BERNARDO Administration Amoxicillin/Clavulanate Potassium 500 mg 12/11/24 18:00 12/12/24 09:53 Amoxicillin/Clavulanate K Susp 500 Mg/6.25 Ml Ud FEED TUBE 12/12/24 21:01 500 mg Q12HR BERNARDO Administration Artificial Tears 1 drop 12/05/24 08:48 Artificial Tears Ophth Soln 15 Ml Bottle EACH EYE QID PRN Dry Eye(s) Aspirin 81 mg 12/10/24 08:05 12/12/24 09:53 Aspirin 81 Mg Chewable Tablet FEED TUBE 81 mg DAILY@0800 BERNARDO Administration Benzonatate 100 mg 12/05/24 08:39 Benzonatate 100 Mg Capsule PO TID PRN cough Brimonidine Tartrate 1 drop 12/05/24 14:00 12/12/24 05:46 Brimonidine Tartrate 0.2% Op Soln 5 Ml Btl EACH EYE 1 drop Q8HR BERNARDO Administration Brinzolamide 1 drop 12/05/24 14:00 12/12/24 05:46 Brinzolamide 1% Ophth Susp 10 Ml EACH EYE 1 drop Q8HR BERNARDO Administration Carvedilol 3.125 mg 12/05/24 08:00 12/07/24 09:01 Carvedilol 3.125 Mg Tablet PO Not Given BIDWM BERNARDO Dextrose 12.5 gm 12/04/24 00:50 12/05/24 13:05 Dextrose 50% 25 Gm/50 Ml Syringe IV PUSH 12.5 gm PRN PRN Administration Hypoglycemia Protocol Escitalopram Oxalate 10 mg 12/05/24 09:00 12/05/24 10:29 Escitalopram Oxalate 10 Mg Tablet PO Not Given QAM BERNARDO Fluticasone/Umeclidinium/Vilanterol 1 puff 12/05/24 09:00 12/07/24 07:55 Fluticasone/Umeclidin/Vilanter 100-62.5-25 Mcg Ellipta INHALATION Not Given DAILY BERNARDO Glucose 15 gm 12/04/24 00:50 Glucose Oral Gel 15 Gm Of Glucse In 37.5 Gm Tube PO PRN PRN Hypoglycemia Protocol Heparin Sodium (Porcine) 5,000 units 12/04/24 14:00 12/12/24 05:45 Heparin Sodium 5,000 Units/Ml Vial SUB-Q 5,000 units Q8HR BERNARDO Administration Dextrose 1,000 mls @ 100 mls/hr 12/04/24 00:50 Dextrose 5% 1,000 Ml IVPB PRN PRN Hypoglycemia Protocol Albumin Human 50 mls @ 999 mls/hr 12/08/24 06:29 Albutein IVPB 01/07/25 06:28 Q10M PRN HYPOTENSION Insulin Aspart 2 - 5 units 12/07/24 12:00 12/12/24 05:54 Insulin Aspart (*Bkc) 100 Units/Ml SUB-Q Not Given Q6HR [facility] Protocol Lidocaine 1 patch 12/05/24 09:00 12/12/24 05:45 Lidocaine 5% Patch TOPICAL 1 patch DAILY BERNARDO Administration Loperamide HCl 2 mg 12/05/24 08:39 Loperamide Hcl 2 Mg Capsule PO Q6H PRN Diarrhea Memantine 5 mg 12/10/24 11:00 12/12/24 09:53 Memantine 5 Mg Tablet FEED TUBE 5 mg DAILY BERNARDO Administration Metoprolol Tartrate 2.5 mg 12/07/24 11:12 Metoprolol Tartrate Inj 5 Mg/5 Ml Vial IV PUSH Q6H PRN Tachycardia Mirtazapine 7.5 mg 12/04/24 21:00 12/04/24 21:23 Mirtazapine 7.5 Mg Tablet PO 7.5 mg HS BERNARDO Administration Morphine Sulfate 2 mg 12/07/24 19:35 12/11/24 21:05 Morphine Sulfate (*Crx) 2 Mg/Ml Inj IV PUSH 2 mg Q4H PRN Administration Pain Rated 7-10 Oxycodone HCl 5 mg 12/04/24 14:02 12/11/24 16:25 Oxycodone Hcl (*Crx) 5 Mg Tab Ir PO 5 mg Q12HR PRN Administration Pain Rated 7-10 Rosuvastatin Calcium 40 mg 12/10/24 21:00 12/11/24 20:48 Rosuvastatin 20 Mg Tablet FEED TUBE 40 mg QHS [facility] Administration Tamsulosin HCl 0.4 mg 12/05/24 09:00 12/07/24 09:01 Tamsulosin Hcl 0.4 Mg Capsule PO Not Given DAILY [facility] Umeclidinium [place] 1 puff 12/05/24 08:00 12/05/24 12:04 Umeclidinium [place] 62.5 Mcg Ellipta [facility]ATION [facility] Results: [facility] Impressions Chest/Abdomen/Pelvis CT 12/04/24 07:39 IMPRESSION: 1. Left lower lobe pneumonia. 2. Mild to moderate bilateral renal atrophy with bilateral renal stents in expected position and similar pattern of increased density in the bilateral renal collecting systems which could represent either small residual excreted contrast as a recent contrast utilization or stones/stone fragments. Head CT 12/05/24 18:02 IMPRESSION: No acute intracranial process. Results reported telephonically to Kareen Avila RN by Dr. Medrano at 6:06 PM on 12/05/2024. Venous Doppler Study 12/05/24 20:05 IMPRESSION: Right cephalic DVT. No DVT detected in the left upper extremity. Brain MRI 12/06/24 12:55 IMPRESSION: 1. No significant change in chronic infarcts, the largest involving the plantar to the right middle cerebral and portions of the anterior cerebral artery vascular distribution. No acute intracranial process. 2. Unchanged significant decrease in caliber of the flow void at the right inte rnal carotid artery which could be related to atherosclerosis and stenosis or decreased perfusion requirement secondary to the extensive infarction in the right cerebral hemisphere. Chest X-Ray 12/07/24 17:37 IMPRESSION: Mild pulmonary vascular congestion with a small left-sided pleural effusion. Right internal jugular tunnelled hemodialysis catheter in position and ready for immediate use. Abdomen X-Ray 12/08/24 15:34 IMPRESSION: Nasogastric tube in good position and ready for immediate use. Renal Ultrasound 12/09/24 19:53 IMPRESSION: Unremarkable renal sonogram findings. Labs Labs: Vital Signs Temp Pulse Resp BP Pulse Ox O2 Del Method O2 Flow Rate 12/12/24 11:43 98.7 F 61 16 139/101 H 99 12/12/24 10:00 56 L 12/12/24 08:56 56 L 17 12/12/24 08:53 56 L 17 100 High Flow Nasal Cannula 3 12/12/24 08:45 54 L 17 12/12/24 08:00 55 L 12/12/24 08:00 95 High Flow Nasal Cannula 3 12/12/24 07:25 98.7 F 59 L 16 109/37 L 100 12/12/24 06:00 58 L 12/12/24 05:44 62 16 12/12/24 04:11 99.3 F 60 20 101/40 L 99 12/12/24 04:00 61 12/12/24 04:00 99 Nasal Cannula 3 12/12/24 02:00 61 12/12/24 00:00 66 08/05/25 00:00 98 Nasal Cannula 3 12/11/24 23:48 99.4 F 62 20 107/36 L 98 12/11/24 22:00 67 12/11/24 21:22 67 16 12/11/24 21:17 94 Room Air 12/11/24 21:17 66 16 12/11/24 20:00 67 12/11/24 20:00 92 Nasal Cannula 3 12/11/24 19:51 99.9 F H 78 20 119/45 L 92 12/11/24 18:00 74 12/11/24 16:46 99.6 F 78 20 139/63 91 12/11/24 16:00 93 12/11/24 16:00 97 Room Air 12/11/24 15:54 98.4 F 86 16 175/75 H 98 12/11/24 15:47 83 116/70 12/11/24 15:30 96 148/55 H 12/11/24 15:15 94 127/93 H 12/11/24 15:00 91 106/62 12/11/24 14:45 84 118/71 12/11/24 14:30 88 119/63 12/11/24 14:15 92 101/66 12/11/24 14:00 88 12/11/24 14:00 69 125/64 12/11/24 13:45 67 127/67 12/11/24 13:30 73 97/60 L 12/11/24 13:15 67 121/61 12/11/24 13:00 60 127/63 12/11/24 12:47 59 L 142/65 H 12/11/24 12:35 98.2 F 63 18 146/61 H 97
--- NOTE | 2024-12-12 12:22 | PCNFU ---
Nutrition Follow-Up Complete: Inadequate energy intake related to altered mental status as evidenced by NPO day 4 Goal:Meet estimated nutrition needs Pt meeting needs via tube feeding Pt current nutrition is Nepro @ 50ml/hr to provide 1980kcals, 89g protein over 24hrs. Nutrition recommendation: continue with current plan of care, monitor for speech recommendations Last recorded weight is 89.5 kg. Bowel Motility: No BM recorded Labs Reviewed: Hgb:7.6, HCt:25.1, Alb:3.1, GFR:17, BUN:39, Cr:3.56, Glu:197 Meds Noted: novolog Skin: DTPI to sacrum Additional Notes: Pt continues on nepro for tube feeding. Speech bedside eval today with recommendations for a minced and moist level 5 diet, but waiting for MBS today for official recommendation. Monitoring mental status, diet orders, swallow ability, weights, labs, plan of care Follow up every Wednesday and Wednesday
[2024-12-12] MEDS: INSULIN ASPART (*BKC) 100 UNITS/ML SUB-Q ×2 (12:49→17:47)
--- NOTE | 2024-12-12 15:23 | P.PNIM_ITS ---
Progress Note: A&P Assessment and Plan (1) Sepsis: Code(s): A41.9 - Sepsis, unspecified organism Status: Acute Assessment and Plan: Patient presents with AMS and found to have sepsis, HoTN and respiratory failure related to multifocal PNA. Chest CT showing worsening consolidation and surrounding tree-in-bud opacities in the LLL consistent with pneumonia. Concern for HAP given recent hospitalization. Consider aspiration. BCx negative UCx negative MRSA negative Mental status improving. Fevers resolved. WBC was normal but now up to 15K Was on Zosyn only but transitioned to Augmentin to complete 7 days. His O2 requirement worsening and now WBC higher with bandemia. Related to recurrent aspiration? Follow for now Unable to perform swallow study today and not sure if will be able to. Asked patient and family about removing NGT and trial oral eating but they did not want to risk his condition worsening. Continue tube feeding today. Spoke with Speech therapist and she states the patient does not fit into the machine to test his swallowing. Will need to speak with family again about options. (2) Sepsis associated hypotension: Code(s): A41.9 - Sepsis, unspecified organism; I95.9 - Hypotension, unspecified Status: Acute Assessment and Plan: BP remains well controlled. As above (3) Acute hypoxic respiratory failure: Code(s): J96.01 - Acute respiratory failure with hypoxia Status: Acute Assessment and Plan: Acute hypoxemic resp failure present on admission related to PNA. He required high flow NC at times but this has improved. Weaned to 0.5L oxygen but now back up to 3L. Continue bronchodilators. Titrate oxygen. Aspiration precautions (4) Altered mental status: Code(s): R41.82 - Altered mental status, unspecified Status: Acute Assessment and Plan: Patient presents with AMS. Concern for CVA but CT head showing no acute intracranial process but does have chronic findings. MRI brain showing no acute findings but again shows a large region encephalomalacia involving the majority of the right frontal and temporal lobes, significant portion of the right parietal lobe and the right basal ganglia left. Additional encephalomalacia involving the right occipital lobe. Also multiple areas of old infarcts. Please see report for details. EEG showing significant abnormal EEG due to presence of moderate diffuse backg round slowing. In addition sharp and wave complexes were seen throughout the recording suggestive of most likely triphasic waves such as may be seen with metabolic encephalopathy. Neurology consulted. 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 Mental status is improving. Continue with aspirin. Continue treatment as above and supportive care. Continue NGT feedings. (5) Acute kidney injury: Code(s): N17.9 - Acute kidney failure, unspecified Status: Acute Assessment and Plan: Recent acute renal failure with creatinine peaking to 7 requiring temporary dialysis. Cr was down to 3.6 at discharge on 11/24/24. Readmission with creatinine of 4.6 and this continued to worsen. Nephrology consulted Tunneled HD catheter placement 12/07 and underwent dialysis 12/08, 12/09 and 12/11 Mental status improved. Follow (6) Multifocal pneumonia: Code(s): J18.8 - Other pneumonia, unspecified organism Status: Acute Assessment and Plan: As above. (7) Type 2 diabetes mellitus: Qualifiers: Diabetes mellitus halfway insulin use: with halfway use Diabetes mellitus complication status: with hypoglycemia Diabetes mellitus complication detail: without coma Qualified Code(s): E11.649 - Type 2 diabetes mellitus with hypoglycemia without coma; Z79.4 - warper fixer (current) use of insulin Code(s): E11.9 - Type 2 diabetes mellitus without complications Status: Chronic Assessment and Plan: A1c 5.0%. The patient's blood glucose was reviewed on 12/12 Glucose remains elevated at times. Continue AccuCheks covering with sliding scale. Hypoglycemia protocol available as needed. Add low dose Lantus. Continue to monitor (8) Anemia: Code(s): D64.9 - Anemia, unspecified Status: Acute Assessment and Plan: Hgb low but stable in the 7-8 range. [place] to be multifactorial Epogen given. Follow and transfuse for Hgb <7. (9) Urinary tract infection: Code(s): N39.0 - Urinary tract infection, site not specified Status: Acute Assessment and Plan: UA noted. UCx negative. UTI ruled out Plan Right cephalic vein thrombosis - on dvt proph. this is superficial vein thrombosis. continue conservative mgmt HTN - Blood pressure noted. Continue to monitor pSBO - Recent partial small-bowel obstruction/hydrops gallbladder at last hospitalization. No recent BM documented. Add bowel regiment. Monitor stool output. Kidney stones - Mildly obstructing left ureteral calculus and right renal stones status post cystoscopy bilateral retrograde left ureteroscopy stone extraction bilateral ureteral stent placement 11/16/2024 and Huddleston catheter placement. urology team on board. Urology contacted about when we can remove Huddleston. DVT prophylaxis on Sq Heparin Code status - full code Subjective Date/time seen: 12/12/24 15:23 Interval history: 69yo male with hx of CVA, wheelchair dependent, COPD, CAD, JAMES, DM and HTN here for altered mental status. Patient is alert but still confused. Tolerating TF. Slept well. Complains of headache and neck pain. He was unable to tolerate the MBS test. Review of Systems Review of Systems: ROS unobtainable: Yes unobtainable due to mental status Exam Narrative: AF 98.9 158/61 62 16 99% 3L Gen - chronically ill appearing male in NARD HEENT - NGT secured Chest - lungs clear anteriorly. Right upper chest tunneled HD catheter in situ CV - RRR S1/S2. Tele showing no significant dysrhythmias Abd - Soft, obese, NT - Huddleston secured with scant amount of dark brown urine in bag Ext -edematous extremities worse in the upper extremities but improving Neuro - more alert and oriented asking about family by name. Psych -difficult to assess. Skin -cool and dry. Scant weeping noted now Objective Data Vital Signs Vital Signs: Vital Signs - 24 hr 12/11/24 15:30 12/11/24 15:47 12/11/24 15:54 Temperature 98.4 F Pulse Rate 96 83 86 Respiratory Rate 16 Blood Pressure 148/55 H 116/70 175/75 H Pulse Oximetry 98 Oxygen Delivery Oxygen Flow Rate 12/11/24 16:00 12/11/24 16:00 12/11/24 16:46 Temperature 99.6 F Pulse Rate 93 78 Respiratory Rate 20 Blood Pressure 139/63 Pulse Oximetry 97 91 Oxygen Delivery Room Air Oxygen Flow Rate 12/11/24 18:00 12/11/24 19:51 12/11/24 20:00 Temperature 99.9 F H Pulse Rate 74 78 Respiratory Rate 20 Blood Pressure 119/45 L Pulse Oximetry 92 92 Oxygen Delivery Nasal Cannula Oxygen Flow Rate 3 12/11/24 20:00 12/11/24 21:17 12/11/24 21:17 Temperature Pulse Rate 67 66 Respiratory Rate 16 Blood Pressure Pulse Oximetry 94 Oxygen Delivery Room Air Oxygen Flow Rate 12/11/24 21:22 12/11/24 22:00 12/11/24 23:48 Temperature 99.4 F Pulse Rate 67 67 62 Respiratory Rate 16 20 Blood Pressure 107/36 L Pulse Oximetry 98 Oxygen Delivery Oxygen Flow Rate 12/12/24 00:00 12/12/24 00:00 12/12/24 02:00 Temperature Pulse Rate 66 61 Respiratory Rate Blood Pressure Pulse Oximetry 98 Oxygen Delivery Nasal Cannula Oxygen Flow Rate 3 12/12/24 04:00 12/12/24 04:00 12/12/24 04:11 Temperature 99.3 F Pulse Rate 61 60 Respiratory Rate 20 Blood Pressure 101/40 L Pulse Oximetry 99 99 Oxygen Delivery Nasal Cannula Oxygen Flow Rate 3 12/12/24 05:44 12/12/24 06:00 12/12/24 07:25 Temperature 98.7 F Pulse Rate 62 58 L 59 L Respiratory Rate 16 16 Blood Pressure 109/37 L Pulse Oximetry 100 Oxygen Delivery Oxygen Flow Rate 12/12/24 08:00 12/12/24 08:00 12/12/24 08:45 Temperature Pulse Rate 55 L 54 L Respiratory Rate 17 Blood Pressure Pulse Oximetry 95 Oxygen Delivery High Flow Nasal Cannula Oxygen Flow Rate 3 12/12/24 08:53 12/12/24 08:56 12/12/24 10:00 Temperature Pulse Rate 56 L 56 L 56 L Respiratory Rate 17 17 Blood Pressure Pulse Oximetry 100 Oxygen Delivery High Flow Nasal Cannula Oxygen Flow Rate 3 12/12/24 11:43 12/12/24 12:00 12/12/24 12:00 Temperature 98.7 F Pulse Rate 61 55 L Respiratory Rate 16 Blood Pressure 139/101 H Pulse Oximetry 99 99 Oxygen Delivery High Flow Nasal Cannula Oxygen Flow Rate 3 Intake/Output Intake/Output: Intake & Output 12/09/24 12/10/24 12/11/24 12/12/24 23:59 23:59 23:59 23:59 Intake Total 0 0 1999 1915 Output Total 1125 0 2075 0 Balance -85 2119 -1915 Meds/Results Medications: Active Medications Generic Name Dose Route Start Last Admin Trade Name Freq PRN Reason Stop Dose Admin Acetaminophen 650 mg 12/04/24 01:55 Acetaminophen 650 Mg Suppository RECTAL Q6H PRN Mild Pain (1-3) or Fever Acetaminophen 650 mg 12/05/24 08:39 Acetaminophen 325 Mg Tablet PO Q8H PRN Pain, Mild Albuterol 2 puff 12/04/24 14:20 12/12/24 05:41 Albuterol Sulfate (*Sp) Aerosol 1 Puff INHALATION 2 puff Q4HRT PRN Administration Wheezing Albuterol/Ipratropium 3 ml 12/05/24 14:00 12/12/24 08:44 Ipratropium 0.5 Mg/Albuterol Sulfate 2.5 Mg Ampul.Neb 3 Ml INHALATION 3 ml TIDRT BERNARDO Administration Amoxicillin/Clavulanate Potassium 500 mg 12/11/24 18:00 12/12/24 09:53 Amoxicillin/Clavulanate K Susp 500 Mg/6.25 Ml Ud FEED TUBE 12/12/24 21:01 500 mg Q12HR BERNARDO Administration Artificial Tears 1 drop 12/05/24 08:48 Artificial Tears Ophth Soln 15 Ml Bottle EACH EYE QID PRN Dry Eye(s) Aspirin 81 mg 12/10/24 08:05 12/12/24 09:53 Aspirin 81 Mg Chewable Tablet FEED TUBE 81 mg DAILY@0800 BERNARDO Administration Benzonatate 100 mg 12/05/24 08:39 Benzonatate 100 Mg Capsule PO TID PRN cough Brimonidine Tartrate 1 drop 12/05/24 14:00 12/12/24 15:12 Brimonidine Tartrate 0.2% Op Soln 5 Ml Btl EACH EYE 1 drop Q8HR BERNARDO Administration Brinzolamide 1 drop 12/05/24 14:00 12/12/24 15:12 Brinzolamide 1% Ophth Susp 10 Ml EACH EYE 1 drop Q8HR BERNARDO Administration Carvedilol 3.125 mg 12/05/24 08:00 12/07/24 09:01 Carvedilol 3.125 Mg Tablet PO Not Given BIDWM BERNARDO Dextrose 12.5 gm 12/04/24 00:50 12/05/24 13:05 Dextrose 50% 25 Gm/50 Ml Syringe IV PUSH 12.5 gm PRN PRN Administration Hypoglycemia Protocol Escitalopram Oxalate 10 mg 12/05/24 09:00 12/05/24 10:29 Escitalopram Oxalate 10 Mg Tablet PO Not Given QAM BERNARDO Fluticasone/Umeclidinium/Vilanterol 1 puff 12/05/24 09:00 12/07/24 07:55 Fluticasone/Umeclidin/Vilanter 100-62.5-25 Mcg Ellipta INHALATION Not Given DAILY BERNARDO Glucose 15 gm 12/04/24 00:50 Glucose Oral Gel 15 Gm Of Glucse In 37.5 Gm Tube PO PRN PRN Hypoglycemia Protocol Heparin Sodium (Porcine) 5,000 units 12/04/24 14:00 12/12/24 15:12 Heparin Sodium 5,000 Units/Ml Vial SUB-Q 5,000 units Q8HR BERNARDO Administration Dextrose 1,000 mls @ 100 mls/hr 12/04/24 00:50 Dextrose 5% 1,000 Ml IVPB PRN PRN Hypoglycemia Protocol Albumin Human 50 mls @ 999 mls/hr 12/08/24 06:29 Albutein IVPB 01/07/25 06:28 Q10M PRN HYPOTENSION Insulin Aspart 2 - 5 units 12/07/24 12:00 12/12/24 12:49 Insulin Aspart (*Bkc) 100 Units/Ml SUB-Q 2 units Q6HR BERNARDO Administration Protocol Lidocaine 1 patch 12/05/24 09:00 12/12/24 05:45 Lidocaine 5% Patch TOPICAL 1 patch DAILY BERNARDO Administration Loperamide HCl 2 mg 12/05/24 08:39 Loperamide Hcl 2 Mg Capsule PO Q6H PRN Diarrhea Memantine 5 mg 12/10/24 11:00 12/12/24 09:53 Memantine 5 Mg Tablet FEED TUBE 5 mg DAILY BERNARDO Administration Metoprolol Tartrate 2.5 mg 12/07/24 11:12 Metoprolol Tartrate Inj 5 Mg/5 Ml Vial IV PUSH Q6H PRN Tachycardia Mirtazapine 7.5 mg 12/04/24 21:00 12/04/24 21:23 Mirtazapine 7.5 Mg Tablet PO 7.5 mg HS BERNARDO Administration Morphine Sulfate 2 mg 12/07/24 19:35 12/11/24 21:05 Morphine Sulfate (*Crx) 2 Mg/Ml Inj IV PUSH 2 mg Q4H PRN Administration Pain Rated 7-10 Oxycodone HCl 5 mg 12/04/24 14:02 12/11/24 16:25 Oxycodone Hcl (*Crx) 5 Mg Tab Ir PO 5 mg Q12HR PRN Administration Pain Rated 7-10 Rosuvastatin Calcium 40 mg 12/10/24 21:00 12/11/24 20:48 Rosuvastatin 20 Mg Tablet FEED TUBE 40 mg QHS [facility] Administration Tamsulosin HCl 0.4 mg 12/05/24 09:00 12/07/24 09:01 Tamsulosin Hcl 0.4 Mg Capsule PO Not Given DAILY [facility] Umeclidinium [place] 1 puff 12/05/24 08:00 12/05/24 12:04 Umeclidinium [place] 62.5 Mcg Ellipta INHALATION [facility] Results: ITS Impressions Chest/Abdomen/Pelvis CT 12/04/24 07:39 IMPRESSION: 1. Left lower lobe pneumonia. 2. Mild to moderate bilateral renal atrophy with bilateral renal stents in expected position and similar pattern of increased density in the bilateral renal collecting systems which could represent either small residual excreted contrast as a recent contrast utilization or stones/stone fragments. Head CT 12/05/24 18:02 IMPRESSION: No acute intracranial process. Results reported telephonically to Kareen Avila RN by Dr. Medrano at 6:06 PM on 12/05/2024. Venous Doppler Study 12/05/24 20:05 IMPRESSION: Right cephalic DVT. No DVT detected in the left upper extremity. Brain MRI 12/06/24 12:55 IMPRESSION: 1. No significant change in chronic infarcts, the largest involving the plantar to the right middle cerebral and portions of the anterior cerebral artery vascular distribution. No acute intracranial process. 2. Unchanged significant decrease in caliber of the flow void at the right internal carotid artery which could be related to atherosclerosis and stenosis or decreased perfusion requirement secondary to the extensive infarction in the right cerebral hemisphere. Chest X-Ray 12/07/24 17:37 IMPRESSION: Mild pulmonary vascular congestion with a small left-sided pleural effusion. Right internal jugular tunnelled hemodialysis catheter in position and ready for immediate use. Abdomen X-Ray 12/08/24 15:34 IMPRESSION: Nasogastric tube in good position and ready for immediate use. Renal Ultrasound 12/09/24 19:53 IMPRESSION: Unremarkable renal sonogram findings. Labs Labs: Laboratory Results - last 24 hr 12/11/24 12/12/24 12/12/24 17:39 00:23 05:30 WBC 15.2 H RBC 2.72 L Hgb 7.6 L Hct 25.1 L MCV 92.3 MCH 27.9 MCHC 30.3 L RDW 16.0 H Plt Count 191 MPV 10.1 Immature Gran % (Auto) Not Reportable Neut % (Auto) Not Reportable Lymph % (Auto) Not Reportable [place] % (Auto) Not Reportable Eos % (Auto) Not Reportable Baso % (Auto) Not Reportable Lymph # (Auto) Not Reportable [place] # (Auto) Not Reportable Eos # (Auto) Not Reportable Baso # (Auto) Not Reportable Abs Immat Gran (auto) Not Reportable Absolute Neuts (auto) Not Reportable Absolute Nucleated RBC Not Reportable Total Counted 100 Neutrophils % (Manual) 68 Band Neutrophils % 13 H Lymphocytes % (Manual) 8 L Monocytes % (Manual) 4 Eosinophils % (Manual) 5 H Metamyelocytes % 2 Nucleated RBC % Not Reportable Abs Neuts (Manual) 12.31 H Abs Lymphs (Manual) 1.21 Abs Monocytes (Manual) 0.60 Absolute Eos (Manual) 0.76 H Smudge Cells Present Platelet Estimate Adequate Anisocytosis 1+ Schistocytes None seen Sodium 137 Potassium 3.6 Chloride 100 Carbon Dioxide 29 Anion Gap 8 BUN 39 H D Creatinine 3.56 H Estim Creat Clear Calc 20 Estimated GFR 17 L Glucose 197 H POC Capillary Glucose 205 H 187 H Calcium 8.9 Phosphorus 1.5 L Magnesium 1.8 Albumin 3.1 L 12/12/24 12/12/24 05:43 11:41 WBC RBC Hgb Hct MCV MCH MCHC RDW Plt Count MPV Immature Gran % (Auto) Neut % (Auto) Lymph % (Auto) [place] % (Auto) Eos % (Auto) Baso % (Auto) Lymph # (Auto) [place] # (Auto) Eos # (Auto) Baso # (Auto) Abs Immat Gran (auto) Absolute Neuts (auto) Absolute Nucleated RBC Total Counted Neutrophils % (Manual) Band Neutrophils % Lymphocytes % (Manual) Monocytes % (Manual) Eosinophils % (Manual) Metamyelocytes % Nucleated RBC % Abs Neuts (Manual) Abs Lymphs (Manual) Abs Monocytes (Manual) Absolute Eos (Manual) Smudge Cells Platelet Estimate Anisocytosis Schistocytes Sodium Potassium Chloride Carbon Dioxide Anion Gap BUN Creatinine Estim Creat Clear Calc Estimated GFR Glucose POC Capillary Glucose 193 H 244 H Calcium Phosphorus Magnesium Albumin
--- NOTE | 2024-12-12 15:52 | PCSTNOTE ---
Attempted to complete MBS study 12/12/24. The patient was unable to maintain upright position and patient width was such position for MBS Study was not possible. Unable to complete MBS Study.
--- NOTE | 2024-12-12 18:07 | PCRCNOTE ---
Tx non admin.
[2024-12-12] MEDS: ACETAMINOPHEN 325 MG TABLET 650 MG PO (20:31)
[2024-12-12] MEDS: ROSUVASTATIN 20 MG TABLET 40 MG FEED TUBE (20:31)
[2024-12-13] VITALS (40 sets, daily range): BP systolic 86–175; BP diastolic 34–85; PULSE 57–148; RESP 16–26; TEMP 36.5–37.9; O2SAT 96–100
[2024-12-13] MEDS: INSULIN ASPART (*BKC) 100 UNITS/ML SUB-Q ×3 (00:55→17:58)
[2024-12-13 05:04] LABS: Hematocrit 25.6 % (42.0-52.0); Hemoglobin 7.9 g/dL (14.0-18.0); Mean Corpuscular HGB Conc 30.9 g/dl (32-36); Mean Corpuscular Hemoglobin 28.1 pg (26-34); Mean Corpuscular Volume 91.1 fl (80-100); Platelet Count Result 208 k/mm3 (150-375); Red Blood Count 2.81 M/mm3 (4.6-6.20); White Blood Count 15.2 K/mm3 (4.5-10.0)
[2024-12-13] MEDS: BRINZOLAMIDE 1% OPHTH SUSP 10 ML 1 DROP EACH EYE ×3 (05:26→21:13)
[2024-12-13] MEDS: BRIMONIDINE TARTRATE 0.2% OP SOLN 5 ML BTL 1 DROP EACH EYE ×3 (05:26→21:13)
[2024-12-13 05:30] LABS: Albumin Level 3.3 g/dL (3.5-5.1); Anion Gap 10 mmol/L (4-12); Blood Urea Nitrogen 55 mg/dL (9-20); Calcium 9.5 mg/dL (8.4-10.2); Carbon Dioxide 29 mmol/L (22-30); Chloride 97 mmol/L (98-107); Estimated CRCL calculation 16 ml/min; Estimated Glomerular Filt Rate 13; Glucose 220 mg/dL (65-110); Magnesium 1.9 mg/dL (1.6-2.3); Potassium 4.0 mmol/L (3.4-5.0); Sodium 136 mmol/L (137-145)
[2024-12-13 05:57] LABS: Band Neutrophils Percent 17 % (0-6); Eosinophils Absolute Manual 0.45 K/mm3 (0.02-0.50); Eosinophils Percent Manual 3 % (0-4); Lymphocytes Absolute Manual 1.52 K/mm3 (1.1-4.5); Lymphocytes Percent Manual 10.0 % (18-44); Metamyelocytes Percent 1 %; Monocytes Absolute Manual 0.15 K/mm3 (0.1-0.90); Monocytes Percent Manual 1 % (3-9); Neutrophils Absolute Manual 12.92 K/mm3 (1.3-6.7); Neutrophils Percent Manual 68 % (46-73); Total Cells Counted 100
[2024-12-13 05:58] LABS: Anisocytosis 1+; Hypochromasia 1+; Ovalocytes 1+; Schistocytes Rare
[2024-12-13] MEDS: POTASSIUM/PHOSPHORUS/SODIUM 1.5 GM PACKET 2 PACKET PO (06:52)
--- NOTE | 2024-12-13 08:49 | PM.IMPN ---
Progress Note: A&P Assessment and Plan (1) Sepsis: Code(s): A41.9 - Sepsis, unspecified organism Status: Acute Assessment and Plan: Patient presents with AMS and found to have sepsis, HoTN and respiratory failure related to multifocal PNA. Chest CT showing worsening consolidation and surrounding tree-in-bud opacities in the LLL consistent with pneumonia. Concern for HAP given recent hospitalization. Consider aspiration. BCx negative UCx negative MRSA negative Mental status improving. Fevers resolved. WBC was normal but now up to 15K Was on Zosyn only but transitioned to Augmentin to complete 7 days. His O2 requirement worsening and now WBC higher with bandemia. Related to recurrent aspiration? Follow for now Unable to perform swallow study today and not sure if will be able to. Asked patient and family about removing NGT and trial oral eating but they did not want to risk his condition worsening. Continue tube feeding today. Spoke with Speech therapist and she states the patient does not fit into the machine to test his swallowing. Will need to speak with family again about options. (2) Sepsis associated hypotension: Code(s): A41.9 - Sepsis, unspecified organism; I95.9 - Hypotension, unspecified Status: Acute Assessment and Plan: BP remains well controlled. As above (3) Acute hypoxic respiratory failure: Code(s): J96.01 - Acute respiratory failure with hypoxia Status: Acute Assessment and Plan: Acute hypoxemic resp failure present on admission related to PNA. He required high flow NC at times but this has improved. Weaned to 0.5L oxygen but now back up to 3L.went up to 5l Continue bronchodilators. Titrate oxygen. Aspiration precautions (4) Altered mental status: Code(s): R41.82 - Altered mental status, unspecified Status: Acute Assessment and Plan: Patient presents with AMS. Concern for CVA but CT head showing no acute intracranial process but does have chronic findings. MRI brain showing no acute findings but again shows a large region encephalomalacia involving the majority of the right frontal and temporal lobes, significant portion of the right parietal lobe and the right basal ganglia left. Additional encephalomalacia involving the right occipital lobe. Also multiple areas of old infarcts. Please see report for details. EEG showing significant abnormal EEG due to presence of moderate diffuse background slowing. In addition sharp and wave complexes were seen throughout the recording suggestive of most likely triphasic waves such as may be seen with metabolic encephalopathy. Neurology consulted. 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 Mental status is improving. Continue with aspirin. Continue treatment as above and supportive care. Continue NGT feedings. speech to continue to see for oral feedings suitability. unable to do swallow study (5) Acute kidney injury: Code(s): N17.9 - Acute kidney failure, unspecified Status: Acute Assessment and Plan: Recent acute renal failure with creatinine peaking to 7 requiring temporary dialysis. Cr was down to 3.6 at discharge on 11/24/24. Readmission with creatinine of 4.6 and this continued to worsen. Nephrology consulted Tunneled HD catheter placement 12/07 and underwent dialysis 12/08, 12/09 and 12/11 Mental status improved. Follow (6) Multifocal pneumonia: Code(s): J18.8 - Other pneumonia, unspecified organism Status: Acute Assessment and Plan: As above. (7) Type 2 diabetes mellitus: Qualifiers: Diabetes mellitus complication detail: without coma Diabetes mellitus complication status: with hypoglycemia Diabetes mellitus fpc insulin use: with fpc use Qualified Code(s): E11.649 - Type 2 diabetes mellitus with hypoglycemia without coma; Z79.4 - alf (current) use of insulin Code(s): E11.9 - Type 2 diabetes mellitus without complications Status: Chronic Assessment and Plan: A1c 5.0%. The patient's blood glucose was reviewed on 12/12 Glucose remains elevated at times. Continue AccuCheks covering with sliding scale. Hypoglycemia protocol available as needed. Add low dose Lantus. Continue to monitor (8) Anemia: Code(s): D64.9 - Anemia, unspecified Status: Acute Assessment and Plan: Hgb low but stable in the 7-8 range. Marydel to be multifactorial Epogen given. Follow and transfuse for Hgb <7. (9) Urinary tract infection: Code(s): N39.0 - Urinary tract infection, site not specified Status: Acute Assessment and Plan: UA noted. UCx negative. UTI ruled out Plan Right cephalic vein thrombosis - on dvt proph. this is superficial vein thrombosis. continue conservative mgmt. HTN - Blood pressure noted. Continue to monitor pSBO - Recent partial small-bowel obstruction/hydrops gallbladder at last hospitalization. No recent BM documented. Add bowel regiment. Monitor stool output. Kidney stones - Mildly obstructing left ureteral calculus and right renal stones status post cystoscopy bilateral retrograde left ureteroscopy stone extraction bilateral ureteral stent placement 11/16/2024 and Huddleston catheter placement. urology team on board. Urology contacted about when we can remove Huddleston. shortness of breath 12/13/2024: oxygenation slightly worse. cxr unremarkable. trop neg. ekg neg. possibility of PE entertained. however oxygenation already improving. he did have superficial cephalic vein thrombosis .will repeat for any further propagation. if get more hypoxic, will do cta. discused with nephrology DVT prophylaxis on Sq Heparin Code status - full code Subjective Date/time seen: 12/13/24 08:49 Interval history: patient could not do swallow evaluation. wants to eat. still has ng in place with tube feeds ongoing. went for dialysis. where he had rapid response for shortness of breath as reported by the patient after started on dialysis. his vitals were stable. oxygenation was bumped up to 5 l from 3l. he was not in severe respiratory distress on evaluation. ekg with no acute st t chagnes, troponin came back negative. no chest pain reported by the patient. he was wanting to live but does not want to get the dialysis done. mentioned that he will need the dialysis to help get the fluid off. he continued on dialysis. Review of Systems Review of Systems: All systems reviewed & are unremarkable except as noted in HPI and below (Subjective/HPI) Exam Narrative: Gen - chronically ill appearing male in [place] - NGT secured Chest - lungs clear anteriorly. Right upper chest tunneled HD catheter in situ CV - RRR S1/S2. Tele showing no significant dysrhythmias Abd - Soft, obese, NT - Huddleston secured with scant amount of dark brown urine in bag Ext -edematous extremities worse in the upper extremities but improving Neuro - more alert and oriented asking about family by name. Psych -difficult to assess. Skin -cool and dry. Scant weeping noted now Objective Data Vital Signs Vital Signs: Vital Signs - 24 hr 12/12/24 08:53 12/12/24 08:56 12/12/24 10:00 Temperature Pulse Rate 56 L 56 L 56 L Respiratory Rate 17 17 Blood Pressure Pulse Oximetry 100 Oxygen Delivery High Flow Nasal Cannula Oxygen Flow Rate 3 Fraction of Inspired Oxygen 12/12/24 11:43 12/12/24 12:00 12/12/24 12:00 Temperature 98.7 F Pulse Rate 61 55 L Respiratory Rate 16 Blood Pressure 139/101 H Pulse Oximetry 99 99 Oxygen Delivery High Flow Nasal Cannula Oxygen Flow Rate 3 Fraction of Inspired Oxygen 12/12/24 14:00 12/12/24 15:25 12/12/24 16:00 Temperature 98.9 F Pulse Rate 58 L 62 61 Respiratory Rate 16 Blood Pressure 158/61 H Pulse Oximetry 99 Oxygen Delivery Oxygen Flow Rate Fraction of Inspired Oxygen 12/12/24 16:00 12/12/24 18:00 12/12/24 20:00 Temperature 98.9 F Pulse Rate 60 61 Respiratory Rate 16 Blood Pressure 119/62 Pulse Oximetry 99 100 Oxygen Delivery High Flow Nasal Cannula Oxygen Flow Rate 3 Fraction of Inspired Oxygen 12/12/24 20:00 12/12/24 20:00 12/12/24 20:55 Temperature Pulse Rate 61 68 Respiratory Rate 20 Blood Pressure Pulse Oximetry 98 Oxygen Delivery Nasal Cannula Oxygen Flow Rate 3 Fraction of Inspired Oxygen 12/12/24 20:58 12/12/24 21:32 12/12/24 22:00 Temperature Pulse Rate 68 64 Respiratory Rate 20 Blood Pressure Pulse Oximetry 98 93 Oxygen Delivery High Flow Nasal Cannula Nasal Cannula Oxygen Flow Rate 3 2 Fraction of Inspired Oxygen 36 28 12/12/24 23:45 12/13/24 00:00 12/13/24 00:00 Temperature 98.3 F Pulse Rate 61 57 L Respiratory Rate 16 Blood Pressure 105/70 Pulse Oximetry 98 99 Oxygen Delivery Nasal Cannula Oxygen Flow Rate 3 Fraction of Inspired Oxygen 12/13/24 02:00 12/13/24 03:47 12/13/24 04:00 Temperature 98 F Pulse Rate 63 62 Respiratory Rate 16 Blood Pressure 125/61 Pulse Oximetry 99 98 Oxygen Delivery Nasal Cannula Oxygen Flow Rate 3 Fraction of Inspired Oxygen 12/13/24 04:00 12/13/24 06:00 12/13/24 07:54 Temperature 97.7 F Pulse Rate 64 63 67 Respiratory Rate 20 Blood Pressure 170/75 H Pulse Oximetry 100 Oxygen Delivery Oxygen Flow Rate Fraction of Inspired Oxygen Intake/Output Intake/Output: Intake & Output 12/10/24 12/11/24 12/12/24 12/13/24 23:59 23:59 23:59 23:59 Intake Total 0 2000 1916 1816 Output Total 0 2075 50 0 Balance 2120 -75 1866 1816 Meds/Results Medications: Active Medications Generic Name Dose Route Start Last Admin Trade Name Freq PRN Reason Stop Dose Admin Acetaminophen 650 mg 12/04/24 01:55 Acetaminophen 650 Mg Suppository RECTAL Q6H PRN Mild Pain (1-3) or Fever Acetaminophen 650 mg 12/05/24 08:39 12/12/24 20:31 Acetaminophen 325 Mg Tablet PO 650 mg Q8H PRN Administration Pain, Mild Albuterol 2 puff 12/04/24 14:20 12/12/24 05:41 Albuterol Sulfate (*Sp) Aerosol 1 Puff INHALATION 2 puff Q4HRT PRN Administration Wheezing Albuterol/Ipratropium 3 ml 12/05/24 14:00 12/12/24 20:55 Ipratropium 0.5 Mg/Albuterol Sulfate 2.5 Mg Ampul.Neb 3 Ml INHALATION 3 ml TIDRT BERNARDO Administration Artificial Tears 1 drop 12/05/24 08:48 Artificial Tears Ophth Soln 15 Ml Bottle EACH EYE QID PRN Dry Eye(s) Aspirin 81 mg 12/10/24 08:05 12/12/24 09:53 Aspirin 81 Mg Chewable Tablet FEED TUBE 81 mg DAILY@0800 [facility] Administration Benzonatate 100 mg 12/05/24 08:39 Benzonatate 100 Mg Capsule PO TID PRN cough Bisacodyl 10 mg 12/13/24 09:00 Bisacodyl 10 Mg Suppository RECTAL 12/14/24 09:01 QAM BERNARDO Brimonidine Tartrate 1 drop 12/05/24 14:00 12/13/24 05:26 Brimonidine Tartrate 0.2% Op Soln 5 Ml Btl EACH EYE 1 drop Q8HR BERNARDO Administration Brinzolamide 1 drop 12/05/24 14:00 12/13/24 05:26 Brinzolamide 1% Ophth Susp 10 Ml EACH EYE 1 drop Q8HR BERNARDO Administration Carvedilol 3.125 mg 12/05/24 08:00 12/07/24 09:01 Carvedilol 3.125 Mg Tablet PO Not Given BIDWM BERNARDO Dextrose 12.5 gm 12/04/24 00:50 12/05/24 13:05 Dextrose 50% 25 Gm/50 Ml Syringe IV PUSH 12.5 gm PRN PRN Administration Hypoglycemia Protocol Epoetin Julien-epbx 20,000 units 12/13/24 18:30 Epoetin Julien-Epbx 10,000 Units/Ml Vial IV PUSH 12/13/24 18:31 ONCE ONE Escitalopram Oxalate 10 mg 12/05/24 09:00 12/05/24 10:29 Escitalopram Oxalate 10 Mg Tablet PO Not Given QAM BERNARDO Fluticasone/Umeclidinium/Vilanterol 1 puff 12/05/24 09:00 12/07/24 07:55 Fluticasone/Umeclidin/Vilanter 100-62.5-25 Mcg Ellipta INHALATION Not Given DAILY BERNARDO Glucose 15 gm 12/04/24 00:50 Glucose Oral Gel 15 Gm Of Glucse In 37.5 Gm Tube PO PRN PRN Hypoglycemia Protocol Heparin Sodium (Porcine) 5,000 units 12/04/24 14:00 12/13/24 05:25 Heparin Sodium 5,000 Units/Ml Vial SUB-Q 5,000 units Q8HR BERNARDO Administration Dextrose 1,000 mls @ 100 mls/hr 12/04/24 00:50 Dextrose 5% 1,000 Ml IVPB PRN PRN Hypoglycemia Protocol Albumin Human 50 mls @ 999 mls/hr 12/08/24 06:29 Albutein IVPB 01/07/25 06:28 Q10M PRN HYPOTENSION Insulin Aspart 2 - 5 units 12/07/24 12:00 12/13/24 05:36 Insulin Aspart (*Bkc) 100 Units/Ml SUB-Q 2 units Q6HR BERNARDO Administration Protocol Lidocaine 1 patch 12/05/24 09:00 12/12/24 05:45 Lidocaine 5% Patch TOPICAL 1 patch DAILY BERNARDO Administration Loperamide HCl 2 mg 12/05/24 08:39 Loperamide Hcl 2 Mg Capsule PO Q6H PRN Diarrhea Memantine 5 mg 12/10/24 11:00 12/12/24 09:53 Memantine 5 Mg Tablet FEED TUBE 5 mg DAILY BERNARDO Administration Metoprolol Tartrate 2.5 mg 12/07/24 11:12 Metoprolol Tartrate Inj 5 Mg/5 Ml Vial IV PUSH Q6H PRN Tachycardia Mirtazapine 7.5 mg 12/04/24 21:00 12/04/24 21:23 Mirtazapine 7.5 Mg Tablet PO 7.5 mg HS BERNARDO Administration Morphine Sulfate 2 mg 12/07/24 19:35 12/11/24 21:05 Morphine Sulfate (*Crx) 2 Mg/Ml Inj IV PUSH 2 mg Q4H PRN Administration Pain Rated 7-10 Oxycodone HCl 5 mg 12/04/24 14:02 12/11/24 16:25 Oxycodone Hcl (*Crx) 5 Mg Tab Ir PO 5 mg Q12HR PRN Administration Pain Rated 7-10 Polyethylene Glycol 17 gm 12/12/24 15:45 12/12/24 17:37 Polyethylene Glycol 3350 17 Gm Powd.Pack FEED TUBE 17 gm QAM [facility] Administration Rosuvastatin Calcium 40 mg 12/10/24 21:00 12/12/24 20:31 Rosuvastatin 20 Mg Tablet FEED TUBE 40 mg QHS [facility] Administration Tamsulosin HCl 0.4 mg 12/05/24 09:00 12/07/24 09:01 Tamsulosin Hcl 0.4 Mg Capsule PO Not Given DAILY [facility] Umeclidinium Wells 1 puff 12/05/24 08:00 12/05/24 12:04 Umeclidinium Wells 62.5 Mcg Ellipta INHALATION [facility] Results: ITS Impressions Chest/Abdomen/Pelvis CT 12/04/24 07:39 IMPRESSION: 1. Left lower lobe pneumonia. 2. Mild to moderate bilateral renal atrophy with bilateral renal stents in expected position and similar pattern of increased density in the bilateral renal collecting systems which could represent either small residual excreted contrast as a recent contrast utilization or stones/stone fragments. Head CT 12/05/24 18:02 IMPRESSION: No acute intracranial process. Results reported telephonically to Kareen Avila RN by Dr. Medrano at 6:06 PM on 12/05/2024. Venous Doppler Study 12/05/24 20:05 IMPRESSION: Right cephalic DVT. No DVT detected in the left upper extremity. Brain MRI 12/06/24 12:55 IMPRESSION: 1. No significant change in chronic infarcts, the largest involving the plantar to the right middle cerebral and portions of the anterior cerebral artery vascular distribution. No acute intracranial process. 2. Unchanged significant decrease in caliber of the flow void at the right internal carotid artery which could be related to atherosclerosis and stenosis or decreased perfusion requirement secondary to the extensive infarction in the right cerebral hemisphere. Chest X-Ray 12/07/24 17:37 IMPRESSION: Mild pulmonary vascular congestion with a small left-sided pleural effusion. Right internal jugular tunnelled hemodialysis catheter in position and ready for immediate use. Abdomen X-Ray 12/08/24 15:34 IMPRESSION: Nasogastric tube in good position and ready for immediate use. Renal Ultrasound 12/09/24 19:53 IMPRESSION: Unremarkable renal sonogram findings. Labs Labs: Laboratory Results - last 24 hr 12/12/24 12/12/24 12/13/24 11:41 17:41 00:53 WBC RBC Hgb Hct MCV MCH MCHC RDW Plt Count MPV Immature Gran % (Auto) Neut % (Auto) Lymph % (Auto) Carter % (Auto) Eos % (Auto) Baso % (Auto) Lymph # (Auto) Carter # (Auto) Eos # (Auto) Baso # (Auto) Abs Immat Gran (auto) Absolute Neuts (auto) Absolute Nucleated RBC Total Counted Neutrophils % (Manual) Band Neutrophils % Lymphocytes % (Manual) Monocytes % (Manual) Eosinophils % (Manual) Metamyelocytes % Nucleated RBC % Abs Neuts (Manual) Abs Lymphs (Manual) Abs Monocytes (Manual) Absolute Eos (Manual) Nucleated RBCs Platelet Estimate Hypochromasia Anisocytosis Ovalocytes Schistocytes Sodium Potassium Chloride Carbon Dioxide Anion Gap BUN Creatinine Estim Creat Clear Calc Estimated GFR Glucose POC Capillary Glucose 244 H 209 H 207 H Calcium Phosphorus Magnesium Albumin 12/13/24 04:54 WBC 15.2 H RBC 2.81 L Hgb 7.9 L Hct 25.6 L MCV 91.1 MCH 28.1 MCHC 30.9 L RDW 15.7 H Plt Count 208 MPV 10.0 Immature Gran % (Auto) Not Reportable Neut % (Auto) Not Reportable Lymph % (Auto) Not Reportable Carter % (Auto) Not Reportable Eos % (Auto) Not Reportable Baso % (Auto) Not Reportable Lymph # (Auto) Not Reportable Carter # (Auto) Not Reportable Eos # (Auto) Not Reportable Baso # (Auto) Not Reportable Abs Immat Gran (auto) Not Reportable Absolute Neuts (auto) Not Reportable Absolute Nucleated RBC Not Reportable Total Counted 100 Neutrophils % (Manual) 68 Band Neutrophils % 17 H Lymphocytes % (Manual) 10.0 L Monocytes % (Manual) 1 L Eosinophils % (Manual) 3 Metamyelocytes % 1 Nucleated RBC % Not Reportable Abs Neuts (Manual) 12.92 H Abs Lymphs (Manual) 1.52 Abs Monocytes (Manual) 0.15 Absolute Eos (Manual) 0.45 Nucleated RBCs 1 Platelet Estimate Adequate Hypochromasia 1+ Anisocytosis 1+ Ovalocytes 1+ Schistocytes Rare Sodium 136 L Potassium 4.0 Chloride 97 L Carbon Dioxide 29 Anion Gap 10 BUN 55 H D Creatinine 4.44 H Estim Creat Clear Calc 16 Estimated GFR 13 L Glucose 220 H POC Capillary Glucose Calcium 9.5 Phosphorus 2.2 L Magnesium 1.9 Albumin 3.3 L
--- NOTE | 2024-12-13 08:57 | ECG_ITS ---
Test Date: 2024-12-13 09:00:52 Measurements Intervals Terry Rate: 82 P: 101 RI: 195 QRS: -15 QRSD: 89 T: 63 QT: 330 QTc: 387 Interpretive Statements SINUS RHYTHM LOW QRS VOLTAGE IN LIMB LEADS BORDERLINE R WAVE PROGRESSION, ANTERIOR LEADS BORDERLINE ST-T WAVE ABNORMALITY- HIGH LATERAL LEADS BASELINE ARTIFACT- V2, V4-V6 BORDERLINE ECG Compared to ECG 12/03/2024 16:59:28 NO SIGNIFICANT CHANGE Electronically Signed On 12-13-2024 09:50:26 CDT by Christofer Montiel D.O.
[2024-12-13] MEDS: IPRATROPIUM 0.5 MG/ALBUTEROL SULFATE 2.5 MG AMPUL.NEB 3 ML INHALATION ×4 (09:05→21:00)
[2024-12-13 09:19] LABS: Alveolar/Arterial O2 Gradient 166.0 mmHg; Fractional Inspired Oxygen 40 %; HCO3 ABG 24.4 mEq/l (22.0-26.0); Oxygen Content ABG 12.4 %vol (16.0-22.0); Oxygen Saturation ABG 94.5 % (95.0-100.0); PCO2 ABG 40.9 mmHg (35.0-45.0); PO2 ABG 72.2 mmHg (80.0-100.0); PO2 FiO2 Ratio Arterial Blood 1.80 %
[2024-12-13 09:20] LABS: Liters per Minute 5.0 LPM; Modified Allen's Test Pass; Site Drawn RIGHT RADIAL
[2024-12-13 09:38] LABS: Troponin I 0.023 ng/mL (0.000-0.034)
[2024-12-13] MEDS: EPOETIN ALFA-EPBX 20,000 UNITS/ML VIAL 20000 UNITS IV PUSH (10:07)
--- NOTE | 2024-12-13 12:05 | P.PNNP_ITS ---
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 AUTOMOTIVE PARTS PERSON/dialysis x 2 sessions * discharge creatinine was 3.66mg/dl (on 11/24/24) * admission creatinine 4.6mg/dl * suspect multifactorial etiology: * possible prerenal factors * insensible losses (due to high fevers) * hypotension/hemodynamic instability * infection/early sepsis (pneumonia) * other(?) * evaluation to date noted: * CT of C/A/P noted - mild to moderate bilateral renal atrophy * normal renal ultrasound * urine electrolytes (by FeUrea) prerenal * urine eosinophils negative * UA suggestive of infection * proteinuria noted * CPK elevated but not enough to affect kidney function * no critical electrolytes, but with a mild acidosis, anemia, and encephalopathy * however, given the possible concern that AMS maybe secondary to BRYCE, initiated on AUTOMOTIVE PARTS PERSON/dialysis * s/p tunneled HD catheter placement (on 12/07) * HD today (and continue M/W/ schedule for now) * follow trend of repeat labs and UOP for potential renal recovery (2) Hypotension: Qualifiers: Hypotension type: hypotension due to hypovolemia Qualified Code(s): E 86.1 - Hypovolemia Code(s): I95.9 - Hypotension, unspecified Status: Acute Assessment and Plan: * clinically better * noted in ER/upon presentation * early sepsis(?) on top of possible volume depletion(?) * s/p IVFs and IV albumin * holding BP medications * follow trend of hemodynamics (3) Acute hypoxic respiratory failure: Code(s): J96.01 - Acute respiratory failure with hypoxia Status: Acute Assessment and Plan: * presumably due to pneumonia * requiring supplemental oxygen - weaning as tolerated * follow respiratory status * monitor for fluid overload * fluid removal with HD to maintain euvolemia (4) Altered mental status: Code(s): R41.82 - Altered mental status, unspecified Status: Acute Assessment and Plan: * slow improvement * possibly due to infection +/- BRYCE; another possible CVA? * imaging noted * head CT negative in ER * repeat CT of head (12/05) and MRI of brain negative * recent LP on last admission with CSF results noted * MRI of brain (on 12/06): no significant change in chronic infarcts, the largest involving the plantar to the right middle cerebral and portions of the anterior cerebral artery vascular distribution; no acute intracranial process * Neurology recommendations noted * follow mentation (5) Pneumonia: Code(s): J18.9 - Pneumonia, unspecified organism Status: Acute Assessment and Plan: * as noted by imaging on admission * follow cultures - negative to date * follow respiratory status * on antibiotics (6) Urinary tract infection: Code(s): N39.0 - Urinary tract infection, site not specified Status: Acute Assessment and Plan: * suspected by admission UA * however, has chronic linton catheter * this was exchanged in the ER * follow culture data - negative to date * on antibiotics (7) Anemia: Code(s): D64.9 - Anemia, unspecified Status: Acute Assessment and Plan: * due to BRYCE/ARF, CKD(?), and acute illness * Epogen with HD * follow trend of H/H (8) Type 2 diabetes mellitus: Qualifiers: Diabetes mellitus terminal supervisor insulin use: with [facility] use Diabetes mellitus complication status: with hypoglycemia Diabetes mellitus complication detail: without coma Qualified Code(s): E11.649 - Type 2 diabetes mellitus with hypoglycemia without coma; Z79.4 - detention (current) use of insulin Code(s): E11.9 - Type 2 diabetes mellitus without complications Status: Chronic Assessment and Plan: * issues with hypoglyemia prior to admission noted * follow accu-cheks * glycemic control per hospitalist Will continue to follow. L Subjective Date/time seen: 12/13/24 12:05 Interval history: Follow-up for acute kidney injury/acute renal failure (on chronic kidney disease?) -- now requiring AUTOMOTIVE PARTS PERSON/hemodialysis. Just about to complete his dialysis treatment at the time of my visit (seen on HD at 11:55am) -- rapid response earlier during treatment due to complaints of shortness of breath (but no hypoxia or respiratory distress noted) with subsequent CXR, EKG, and troponins without any acute changes; had another episode of feeling sick in association with hypotension during dialysis but resolved with decreasing fluid removal; no apparent distress noted when seen. Exam 2 Narrative: General: large but ill-appearing male in NAD Heart: normal S1 and S2; no rub Lungs: coarse breath sounds Abdomen: obese with positive bowel sounds Extremities: no cyanosis or clubbing; + UE edema Skin: warm and dry Objective Data Vital Signs Vital Signs: Vital Signs Temp Pulse Resp BP Pulse Ox O2 Del Method O2 Flow Rate 12/13/24 12:00 99.8 F H 78 132/67 100 12/13/24 11:59 81 135/65 12/13/24 11:45 81 126/64 12/13/24 11:30 81 123/58 L 12/13/24 11:15 81 136/64 12/13/24 11:00 81 114/67 12/13/24 10:45 71 115/65 12/13/24 10:30 87 24 H 115/65 12/13/24 10:30 148 H 86/58 L 12/13/24 10:15 81 100/58 L 12/13/24 10:00 81 12/13/24 10:00 82 103/64 12/13/24 09:45 67 105/85 12/13/24 09:40 70 20 12/13/24 09:30 77 115/62 12/13/24 09:20 72 20 12/13/24 09:15 77 136/68 12/13/24 09:00 81 163/81 H 12/13/24 08:46 83 138/66 12/13/24 08:43 81 26 H 138/66 97 12/13/24 08:30 69 163/75 H 12/13/24 08:26 66 175/71 H 12/13/24 08:11 3 12/13/24 08:11 98.7 F 64 16 166/71 H 12/13/24 08:00 67 12/13/24 08:00 98 Nasal Cannula 3 12/13/24 07:54 97.7 F 67 20 170/75 H 100 12/13/24 06:00 63 12/13/24 04:00 64 12/13/24 04:00 98 Nasal Cannula 3 12/13/24 03:47 98 F 62 16 125/61 99 12/13/24 02:00 63 12/13/24 00:00 57 L 12/13/24 00:00 99 Nasal Cannula 3 12/12/24 23:45 98.3 F 61 16 105/70 98 12/12/24 22:00 64 12/12/24 21:32 93 Nasal Cannula 2 12/12/24 20:58 68 20 98 High Flow Nasal Cannula 3 12/12/24 20:55 68 20 12/12/24 20:00 98 Nasal Cannula 3 12/12/24 20:00 61 12/12/24 20:00 98.9 F 61 16 119/62 100 12/12/24 18:00 60 Intake/Output Intake/Output: Intake & Output 12/10/24 12/11/24 12/12/24 12/13/24 23:59 23:59 23:59 23:59 Intake Total 2120 2000 1916 1816 Output Total 0 2075 50 2300 Balance 0 -74 4641 -451 Meds/Results Medications: Active Medications Generic Name Dose Route Start Last Admin Trade Name Freq PRN Reason Stop Dose Admin Acetaminophen 650 mg 12/04/24 01:55 Acetaminophen 650 Mg Suppository RECTAL Q6H PRN Mild Pain (1-3) or Fever Acetaminophen 650 mg 12/05/24 08:39 12/12/24 20:31 Acetaminophen 325 Mg Tablet PO 650 mg Q8H PRN Administration Pain, Mild Albuterol 2 puff 12/04/24 14:20 12/12/24 05:41 Albuterol Sulfate (*Sp) Aerosol 1 Puff INHALATION 2 puff Q4HRT PRN Administration Wheezing Albuterol/Ipratropium 3 ml 12/05/24 14:00 12/13/24 13:56 Ipratropium 0.5 Mg/Albuterol Sulfate 2.5 Mg Ampul.Neb 3 Ml INHALATION 3 ml TIDRT BERNARDO Administration Artificial Tears 1 drop 12/05/24 08:48 Artificial Tears Ophth Soln 15 Ml Bottle EACH EYE QID PRN Dry Eye(s) Aspirin 81 mg 12/10/24 08:05 12/13/24 12:39 Aspirin 81 Mg Chewable Tablet FEED TUBE 81 mg DAILY@0800 BERNARDO Administration Benzonatate 100 mg 12/05/24 08:39 Benzonatate 100 Mg Capsule PO TID PRN cough Bisacodyl 10 mg 12/13/24 09:00 12/13/24 13:16 Bisacodyl 10 Mg Suppository RECTAL 12/14/24 09:01 Not Given QAM BERNARDO Brimonidine Tartrate 1 drop 12/05/24 14:00 12/13/24 13:18 Brimonidine Tartrate 0.2% Op Soln 5 Ml Btl EACH EYE 1 drop Q8HR BERNARDO Administration Brinzolamide 1 drop 12/05/24 14:00 12/13/24 13:18 Brinzolamide 1% Ophth Susp 10 Ml EACH EYE 1 drop Q8HR BERNARDO Administration Carvedilol 3.125 mg 12/05/24 08:00 12/07/24 09:01 Carvedilol 3.125 Mg Tablet PO Not Given BIDWM BERNARDO Dextrose 12.5 gm 12/04/24 00:50 12/05/24 13:05 Dextrose 50% 25 Gm/50 Ml Syringe IV PUSH 12.5 gm PRN PRN Administration Hypoglycemia Protocol Escitalopram Oxalate 10 mg 12/05/24 09:00 12/05/24 10:29 Escitalopram Oxalate 10 Mg Tablet PO Not Given QAM BERNARDO Fluticasone/Umeclidinium/Vilanterol 1 puff 12/05/24 09:00 12/07/24 07:55 Fluticasone/Umeclidin/Vilanter 100-62.5-25 Mcg Ellipta INHALATION Not Given DAILY BERNARDO Glucose 15 gm 12/04/24 00:50 Glucose Oral Gel 15 Gm Of Glucse In 37.5 Gm Tube PO PRN PRN Hypoglycemia Protocol Heparin Sodium (Porcine) 5,000 units 12/04/24 14:00 12/13/24 13:17 Heparin Sodium 5,000 Units/Ml Vial SUB-Q 5,000 units Q8HR BERNARDO Administration Dextrose 1,000 mls @ 100 mls/hr 12/04/24 00:50 Dextrose 5% 1,000 Ml IVPB PRN PRN Hypoglycemia Protocol Albumin Human 50 mls @ 999 mls/hr 12/08/24 06:29 Albutein IVPB 01/07/25 06:28 Q10M PRN HYPOTENSION Insulin Aspart 2 - 5 units 12/07/24 12:00 12/13/24 13:18 Insulin Aspart (*Bkc) 100 Units/Ml SUB-Q Not Given Q6HR BERNARDO Protocol Lidocaine 1 patch 12/05/24 09:00 12/13/24 13:16 Lidocaine 5% Patch TOPICAL Not Given DAILY [facility] Loperamide HCl 2 mg 12/05/24 08:39 Loperamide Hcl 2 Mg Capsule PO Q6H PRN Diarrhea Memantine 5 mg 12/10/24 11:00 12/13/24 12:40 Memantine 5 Mg Tablet FEED TUBE 5 mg DAILY [facility] Administration Metoprolol Tartrate 2.5 mg 12/07/24 11:12 Metoprolol Tartrate Inj 5 Mg/5 Ml Vial IV PUSH Q6H PRN Tachycardia Mirtazapine 7.5 mg 12/04/24 21:00 12/04/24 21:23 Mirtazapine 7.5 Mg Tablet PO 7.5 mg HS [facility] Administration Miscellaneous Information 0 each 12/13/24 00:01 Please Renew Oxycodone If Still Needed XX 01/12/25 00:00 CLARIFY [facility] Morphine Sulfate 2 mg 12/07/24 19:35 12/11/24 21:05 Morphine Sulfate (*Crx) 2 Mg/Ml Inj IV PUSH 2 mg Q4H PRN Administration Pain Rated 7-10 Ondansetron HCl 4 mg 12/13/24 10:46 Ondansetron Inj 4 Mg/2 Ml Vial IV PUSH Q6H PRN Nausea And Vomiting Oxycodone HCl 5 mg 12/04/24 14:02 12/11/24 16:25 Oxycodone Hcl (*Crx) 5 Mg Tab Ir PO 5 mg Q12HR PRN Administration Pain Rated 7-10 Polyethylene Glycol 17 gm 12/12/24 15:45 12/13/24 12:40 Polyethylene Glycol 3350 17 Gm Powd.Pack FEED TUBE 17 gm QAM [facility] Administration Rosuvastatin Calcium 40 mg 12/10/24 21:00 12/12/24 20:31 Rosuvastatin 20 Mg Tablet FEED TUBE 40 mg QHS [facility] Administration Tamsulosin HCl 0.4 mg 12/05/24 09:00 12/07/24 09:01 Tamsulosin Hcl 0.4 Mg Capsule PO Not Given DAILY [facility] Umeclidinium [place] 1 puff 12/05/24 08:00 12/05/24 12:04 Umeclidinium [place] 62.5 Mcg Ellipta INHALATION [facility] Results: ITS Impressions Chest/Abdomen/Pelvis CT 12/04/24 07:39 IMPRESSION: 1. Left lower lobe pneumonia. 2. Mild to moderate bilateral renal atrophy with bilateral renal stents in expected position and similar pattern of increased density in the bilateral renal collecting systems which could represent either small residual excreted contrast as a recent contrast utilization or stones/stone fragments. Head CT 12/05/24 18:02 IMPRESSION: No acute intracranial process. Results reported telephonically to Kareen Avila RN by Dr. Medrano at 6:06 PM on 12/05/2024. Brain MRI 12/06/24 12:55 IMPRESSION: 1. No significant change in chronic infarcts, the largest involving the plantar to the right middle cerebral and portions of the anterior cerebral artery vascular distribution. No acute intracranial process. 2. Unchanged significant decrease in caliber of the flow void at the right internal carotid artery which could be related to atherosclerosis and stenosis or decreased perfusion requirement secondary to the extensive infarction in the right cerebral hemisphere. Abdomen X-Ray 12/08/24 15:34 IMPRESSION: Nasogastric tube in good position and ready for immediate use. Renal Ultrasound 12/09/24 19:53 IMPRESSION: Unremarkable renal sonogram findings. Chest X-Ray 12/13/24 09:33 Impression: 1: No acute cardiopulmonary disease. Labs Labs: Laboratory Tests 12/13/24 04:54 12/13/24 04:54 Calcium 9.5 Phosphorus 2.2 L Magnesium 1.9 Albumin 3.3 L
[2024-12-13] MEDS: ASPIRIN 81 MG CHEWABLE TABLET FEED TUBE (12:39)
[2024-12-13] MEDS: MEMANTINE 5 MG TABLET FEED TUBE (12:40)
[2024-12-13] MEDS: ACETAMINOPHEN 325 MG TABLET 650 MG PO (20:32)
[2024-12-13] MEDS: ROSUVASTATIN 20 MG TABLET 40 MG FEED TUBE (20:35)
[2024-12-14] VITALS (16 sets, daily range): BP systolic 118–138; BP diastolic 40–59; PULSE 54–84; RESP 18–20; TEMP 36.4–37.6; O2SAT 91–100
[2024-12-14] MEDS: INSULIN ASPART (*BKC) 100 UNITS/ML SUB-Q ×4 (00:01→17:21)
[2024-12-14] MEDS: BRIMONIDINE TARTRATE 0.2% OP SOLN 5 ML BTL 1 DROP EACH EYE ×3 (06:02→21:05)
[2024-12-14] MEDS: BRINZOLAMIDE 1% OPHTH SUSP 10 ML 1 DROP EACH EYE ×3 (06:02→21:05)
[2024-12-14] MEDS: MEMANTINE 5 MG TABLET FEED TUBE (08:32)
[2024-12-14] MEDS: ASPIRIN 81 MG CHEWABLE TABLET FEED TUBE (08:32)
[2024-12-14] MEDS: IPRATROPIUM 0.5 MG/ALBUTEROL SULFATE 2.5 MG AMPUL.NEB 3 ML INHALATION ×3 (09:05→21:08)
[2024-12-14 11:58] LABS: Hematocrit 24.2 % (42.0-52.0); Hemoglobin 7.3 g/dL (14.0-18.0); Immature Granulocyte Percent A 7.9 % (0-0.5); Lymphocytes Absolute Auto 1.81 K/mm3 (0.9-3.2); Mean Corpuscular HGB Conc 30.2 g/dl (32-36); Mean Corpuscular Hemoglobin 28.3 pg (26-34); Mean Corpuscular Volume 93.8 fl (80-100); Nucleated Red Blood Cells Absolute Auto 0.020 K/mm3 (0.0-0.012); Nucleated Red Blood Cells Perc 0.1 % (0.0-0.2); Platelet Count Result 182 k/mm3 (150-375); Red Blood Count 2.58 M/mm3 (4.6-6.20); White Blood Count 15.0 K/mm3 (4.5-10.0)
[2024-12-14 12:26] LABS: Alanine Aminotransferase 33 U/L (6-50); Albumin Level 3.0 g/dL (3.5-5.1); Alkaline Phosphatase 174 U/L (38-126); Anion Gap 8 mmol/L (4-12); Aspartate Amino Transferase 51 U/L (17-59); Bilirubin,Total 0.4 mg/dL (0.2-1.3); Blood Urea Nitrogen 38 mg/dL (9-20); Calcium 9.1 mg/dL (8.4-10.2); Carbon Dioxide 26 mmol/L (22-30); Chloride 99 mmol/L (98-107); Estimated CRCL calculation 18 ml/min; Estimated Glomerular Filt Rate 15; Glucose 260 mg/dL (65-110); Magnesium 2.0 mg/dL (1.6-2.3); Potassium 3.8 mmol/L (3.4-5.0); Sodium 133 mmol/L (137-145); Total Protein 5.8 g/dL (6.3-8.2)
[2024-12-14 12:35] LABS: Procalcitonin 2.1 ng/mL
[2024-12-14 12:39] LABS: Anisocytosis 1+; Hypochromasia 1+; Ovalocytes 1+; Polychromasia 1+; Schistocytes Rare
--- NOTE | 2024-12-14 13:01 | P.PNNP_ITS ---
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 [employer]INE[employer]/dialysis x 2 sessions * discharge creatinine was 3.66mg/dl (on 11/24/24) * admission creatinine 4.6mg/dl * suspect multifactorial etiology: * possible prerenal factors * insensible losses (due to high fevers) * hypotension/hemodynamic instability * infection/early sepsis (pneumonia) * other(?) * evaluation to date noted: * CT of C/A/P noted - mild to moderate bilateral renal atrophy * normal renal ultrasound * urine electrolytes (by FeUrea) prerenal * urine eosinophils negative * UA suggestive of infection * proteinuria noted * CPK elevated but not enough to affect kidney function * no critical electrolytes, but with a mild acidosis, anemia, and encephalopathy * however, given the possible concern that AMS maybe secondary to BRYCE, initiated on [employer]/dialysis * s/p tunneled HD catheter placement (on 12/07) * HD tomorrow (and continue M/W/ schedule for now) * follow trend of repeat labs and UOP for potential renal recovery (2) Hypotension: Qualifiers: Hypotension type: hypotension due to hypovolemia Qualified Code(s): E 86.1 - Hypovolemia Code(s): I95.9 - Hypotension, unspecified Status: Acute Assessment and Plan: * clinically better * noted in ER/upon presentation * early sepsis(?) on top of possible volume depletion(?) * s/p IVFs and IV albumin * holding BP medications * follow trend of hemodynamics (3) Acute hypoxic respiratory failure: Code(s): J96.01 - Acute respiratory failure with hypoxia Status: Acute Assessment and Plan: * presumably due to pneumonia * requiring supplemental oxygen - weaning as tolerated * follow respiratory status * monitor for fluid overload * fluid removal with HD to maintain euvolemia (4) Altered mental status: Code(s): R41.82 - Altered mental status, unspecified Status: Acute Assessment and Plan: * continues to fluctuate * possibly due to infection +/- BRYCE; another possible CVA? * imaging noted * head CT negative in ER * repeat CT of head (12/05) and MRI of brain negative * recent LP on last admission with CSF results noted * MRI of brain (on 12/06): no significant change in chronic infarcts, the largest involving the plantar to the right middle cerebral and portions of the anterior cerebral artery vascular distribution; no acute intracranial process * Neurology recommendations noted * follow mentation (5) Pneumonia: Code(s): J18.9 - Pneumonia, unspecified organism Status: Acute Assessment and Plan: * as noted by imaging on admission * follow cultures - negative to date * follow respiratory status * on antibiotics (6) Urinary tract infection: Code(s): N39.0 - Urinary tract infection, site not specified Status: Acute Assessment and Plan: * suspected by admission UA * however, has chronic linton catheter * this was exchanged in the ER * follow culture data - negative to date * on antibiotics (7) Anemia: Code(s): D64.9 - Anemia, unspecified Status: Acute Assessment and Plan: * due to BRYCE/ARF, CKD(?), and acute illness * Epogen with HD * follow trend of H/H (8) Type 2 diabetes mellitus: Qualifiers: Diabetes mellitus complication detail: without coma Diabetes mellitus complication status: with hypoglycemia Diabetes mellitus [facility] insulin use: with terminal clerk use Qualified Code(s): E11.649 - Type 2 diabetes mellitus with hypoglycemia without coma; Z79.4 - terminal clerk (current) use of insulin Code(s): E11.9 - Type 2 diabetes mellitus without complications Status: Chronic Assessment and Plan: * issues with hypoglyemia prior to admission noted * follow accu-cheks * glycemic control per hospitalist Will continue to follow. L Subjective Date/time seen: 12/14/24 13:01 Interval history: Follow-up for acute kidney injury/acute renal failure (on chronic kidney disease?) -- now requiring [employer]/hemodialysis. Tolerated dialysis treatment yesterday although noted issue with rapid response due to shortness of breath and subsequent hypotension apparent; mentation continues to wax and wane in general; afebrile and stable hemodynamics noted; still with no significant urine output at this time; mother at bedside and we discussed the situation. Exam 2 Narrative: General: large but ill-appearing male in NAD Heart: normal S1 and S2; no rub Lungs: coarse breath sounds Abdomen: obese with positive bowel sounds Extremities: no cyanosis or clubbing; + UE edema Skin: warm and intact Objective Data Vital Signs Vital Signs: Vital Signs Temp Pulse Resp BP Pulse Ox O2 Del Method O2 Flow Rate 12/14/24 11:49 99.6 F 61 20 118/45 L 96 12/14/24 10:00 57 L 12/14/24 09:16 54 L 20 12/14/24 09:06 57 L 20 12/14/24 09:06 57 L 20 97 Nasal Cannula 3 12/14/24 08:07 98.0 F 65 20 138/59 L 98 12/14/24 08:00 97 Nasal Cannula 3 12/14/24 08:00 63 12/14/24 06:00 56 L 12/14/24 04:00 59 L 12/14/24 04:00 100 Nasal Cannula 3 12/14/24 04:00 98.1 F 58 L 20 129/40 L 100 12/14/24 02:00 56 L 12/14/24 00:00 58 L 12/14/24 00:00 98 Nasal Cannula 3 12/13/24 23:59 99.4 F 57 L 20 116/34 L 99 12/13/24 22:00 65 12/13/24 21:00 66 16 12/13/24 20:50 68 16 12/13/24 20:00 70 12/13/24 20:00 97 Nasal Cannula 3 12/13/24 20:00 99.5 F 74 20 93/39 L 97 12/13/24 18:00 68 Intake/Output Intake/Output: Intake & Output 12/11/24 12/12/24 12/13/24 12/14/24 23:59 23:59 23:59 23:59 Intake Total 19998 1816 1283 Output Total 4587 14 8512 15 Balance -75 1211 -789 4718 Meds/Results Medications: Active Medications Generic Name Dose Route Start Last Admin Trade Name Freq PRN Reason Stop Dose Admin Acetaminophen 650 mg 12/04/24 01:55 Acetaminophen 650 Mg Suppository RECTAL Q6H PRN Mild Pain (1-3) or Fever Acetaminophen 650 mg 12/05/24 08:39 12/13/24 20:32 Acetaminophen 325 Mg Tablet PO 650 mg Q8H PRN Administration Pain, Mild Albuterol 2 puff 12/04/24 14:20 12/12/24 05:41 Albuterol Sulfate (*Sp) Aerosol 1 Puff INHALATION 2 puff Q4HRT PRN Administration Wheezing Albuterol/Ipratropium 3 ml 12/13/24 21:00 12/14/24 14:36 Ipratropium 0.5 Mg/Albuterol Sulfate 2.5 Mg Ampul.Neb 3 Ml INHALATION 3 ml TIDRT BERNARDO Administration Artificial Tears 1 drop 12/05/24 08:48 Artificial Tears Ophth Soln 15 Ml Bottle EACH EYE QID PRN Dry Eye(s) Aspirin 81 mg 12/10/24 08:05 12/14/24 08:32 Aspirin 81 Mg Chewable Tablet FEED TUBE 81 mg DAILY@0800 BERNARDO Administration Benzonatate 100 mg 12/05/24 08:39 Benzonatate 100 Mg Capsule PO TID PRN cough Brimonidine Tartrate 1 drop 12/05/24 14:00 12/14/24 14:10 Brimonidine Tartrate 0.2% Op Soln 5 Ml Btl EACH EYE 1 drop Q8HR BERNARDO Administration Brinzolamide 1 drop 12/05/24 14:00 12/14/24 14:10 Brinzolamide 1% Ophth Susp 10 Ml EACH EYE 1 drop Q8HR [facility]O Administration Carvedilol 3.125 mg 12/05/24 08:00 12/07/24 09:01 Carvedilol 3.125 Mg Tablet PO Not Given BIDWM [facility] Dextrose 12.5 gm 12/04/24 00:50 12/05/24 13:05 Dextrose 50% 25 Gm/50 Ml Syringe IV PUSH 12.5 gm PRN PRN Administration Hypoglycemia Protocol Escitalopram Oxalate 10 mg 12/05/24 09:00 12/05/24 10:29 Escitalopram Oxalate 10 Mg Tablet PO Not Given QAM [facility] Fluticasone/Umeclidinium/Vilanterol 1 puff 12/05/24 09:00 12/07/24 07:55 Fluticasone/Umeclidin/Vilanter 100-62.5-25 Mcg Ellipta INHALATION Not Given DAILY [facility] Glucose 15 gm 12/04/24 00:50 Glucose Oral Gel 15 Gm Of Glucse In 37.5 Gm Tube PO PRN PRN Hypoglycemia Protocol Heparin Sodium (Porcine) 5,000 units 12/04/24 14:00 12/14/24 14:10 Heparin Sodium 5,000 Units/Ml Vial SUB-Q 5,000 units Q8HR BERNARDO Administration Dextrose 1,000 mls @ 100 mls/hr 12/04/24 00:50 Dextrose 5% 1,000 Ml IVPB PRN PRN Hypoglycemia Protocol Albumin Human 50 mls @ 999 mls/hr 12/08/24 06:29 Albutein IVPB 01/07/25 06:28 Q10M PRN HYPOTENSION Insulin Aspart 2 - 5 units 12/07/24 12:00 12/14/24 17:21 Insulin Aspart (*Bkc) 100 Units/Ml SUB-Q 2 units Q6HR BERNARDO Administration Protocol Lidocaine 1 patch 12/05/24 09:00 12/14/24 08:33 Lidocaine 5% Patch TOPICAL Not Given DAILY [facility] Loperamide HCl 2 mg 12/05/24 08:39 Loperamide Hcl 2 Mg Capsule PO Q6H PRN Diarrhea Memantine 5 mg 12/10/24 11:00 12/14/24 08:32 Memantine 5 Mg Tablet FEED TUBE 5 mg DAILY [facility] Administration Metoprolol Tartrate 2.5 mg 12/07/24 11:12 Metoprolol Tartrate Inj 5 Mg/5 Ml Vial IV PUSH Q6H PRN Tachycardia Mirtazapine 7.5 mg 12/04/24 21:00 12/04/24 21:23 Mirtazapine 7.5 Mg Tablet PO 7.5 mg HS [facility] Administration Morphine Sulfate 2 mg 12/07/24 19:35 12/11/24 21:05 Morphine Sulfate (*Crx) 2 Mg/Ml Inj IV PUSH 2 mg Q4H PRN Administration Pain Rated 7-10 Ondansetron HCl 4 mg 12/13/24 10:46 Ondansetron Inj 4 Mg/2 Ml Vial IV PUSH Q6H PRN Nausea And Vomiting Oxycodone HCl 5 mg 12/04/24 14:02 12/11/24 16:25 Oxycodone Hcl (*Crx) 5 Mg Tab Ir PO 5 mg Q12HR PRN Administration Pain Rated 7-10 Polyethylene Glycol 17 gm 12/12/24 15:45 12/14/24 08:32 Polyethylene Glycol 3350 17 Gm Powd.Pack FEED TUBE 17 gm QAM BERNARDO Administration Rosuvastatin Calcium 40 mg 12/10/24 21:00 12/13/24 20:35 Rosuvastatin 20 Mg Tablet FEED TUBE 40 mg QHS [facility] Administration Tamsulosin HCl 0.4 mg 12/05/24 09:00 12/07/24 09:01 Tamsulosin Hcl 0.4 Mg Capsule PO Not Given DAILY [facility] Umeclidinium [place] 1 puff 12/05/24 08:00 12/05/24 12:04 Umeclidinium [place] 62.5 Mcg Ellipta IN[facility]ATION [facility] Results: ITS Impressions Chest/Abdomen/Pelvis CT 12/04/24 07:39 IMPRESSION: 1. Left lower lobe pneumonia. 2. Mild to moderate bilateral renal atrophy with bilateral renal stents in expected position and similar pattern of increased density in the bilateral renal collecting systems which could represent either small residual excreted contrast as a recent contrast utilization or stones/stone fragments. Head CT 12/05/24 18:02 IMPRESSION: No acute intracranial process. Results reported telephonically to Kareen Avila RN by Dr. Medrano at 6:06 PM on 12/05/2024. Brain MRI 12/06/24 12:55 IMPRESSION: 1. No significant change in chronic infarcts, the largest involving the plantar to the right middle cerebral and portions of the anterior cerebral artery vascular distribution. No acute intracranial process. 2. Unchanged significant decrease in caliber of the flow void at the right internal carotid artery which could be related to atherosclerosis and stenosis or decreased perfusion requirement secondary to the extensive infarction in the right cerebral hemisphere. Abdomen X-Ray 12/08/24 15:34 IMPRESSION: Nasogastric tube in good position and ready for immediate use. Renal Ultrasound 12/09/24 19:53 IMPRESSION: Unremarkable renal sonogram findings. Chest X-Ray 12/13/24 09:33 Impression: 1: No acute cardiopulmonary disease. Venous Doppler Study 12/13/24 15:38 IMPRESSION: 1. Patent veins in the right upper limb with resolution of prior right cephalic vein thrombosis. 2. New noncompressible thrombus in the left cephalic vein, potentially also in the left ulnar and radial veins however assessment in these vessels is limited by the small size of the vessels and the presence of significant surrounding soft tissue edema. Labs Labs: Laboratory Tests 12/14/24 11:43 12/14/24 11:43 Calcium 9.1 Magnesium 2.0 Total Bilirubin 0.4 AST 51 ALT 33 Alkaline Phosphatase 174 H Total Protein 5.8 L Albumin 3.0 L Procalcitonin 2.1
--- NOTE | 2024-12-14 18:02 | PM.IMPN ---
Progress Note: A&P Assessment and Plan (1) Sepsis: Code(s): A41.9 - Sepsis, unspecified organism Status: Acute Assessment and Plan: Patient presents with AMS and found to have sepsis, HoTN and respiratory failure related to multifocal PNA. Chest CT showing worsening consolidation and surrounding tree-in-bud opacities in the LLL consistent with pneumonia. Concern for HAP given recent hospitalization. Consider aspiration. Blood cultures 12/04/2024 no growth Urine culture 12/05/2024 no growth MRSA negative Was on Zosyn, transition to Augmentin and completed 7 days. Mental status greatly improved. Afebrile. WBC normalized but on 12/12/2024 increased to 15. Repeat chest x-ray on 12/13/2024 no acute disease. Procalcitonin on 12/14/2024 2.1. It is at this time we will continue to monitor. Leukocytosis could be due to DVT, he is afebrile, procalcitonin elevation could be due to decreased renal function. He otherwise does not have any hemodynamic instability indicating sepsis. He appears comfortable, not ill aside from his chronic debility. (2) Sepsis associated hypotension: Code(s): A41.9 - Sepsis, unspecified organism; I95.9 - Hypotension, unspecified Status: Acute Assessment and Plan: Resolved. (3) Acute hypoxic respiratory failure: Code(s): J96.01 - Acute respiratory failure with hypoxia Status: Acute Assessment and Plan: Acute hypoxemic resp failure present on admission related to PNA. He required high flow NC at times but this has improved. On 12/14/2024 is saturating 96% on room air (was on 3 L but it was on his chin and he was saturating well) Continue bronchodilators. Aspiration precautions. (4) Altered mental status: Code(s): R41.82 - Altered mental status, unspecified Status: Acute Assessment and Plan: Patient presents with AMS. Concern for CVA but CT head showing no acute intracranial process but does have chronic findings. MRI brain showing no acute findings but again shows a large region encephalomalacia involving the majority of the right frontal and temporal lobes, significant portion of the right parietal lobe and the right basal ganglia left. Additional encephalomalacia involving the right occipital lobe. Also multiple areas of old infarcts. Please see report for details. EEG showing significant abnormal EEG due to presence of moderate diffuse background slowing. In addition sharp and wave complexes were seen throughout the recording suggestive of most likely triphasic waves such as may be seen with metabolic encephalopathy. Neurology consulted. 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 Mental status is improving. Holding aspirin on 12/14/2024 due to anemia. Restart when appropriate. Continue NG tube feedings. Speech therapy continues to work with the patient, hope to remove the NG tube if he performs well. Patient cannot go down for barium swallow as he cannot fit on the table and he could not sit upright as well per report. (5) Acute kidney injury: Code(s): N17.9 - Acute kidney failure, unspecified Status: Acute Assessment and Plan: Recent acute renal failure with creatinine peaking to 7 requiring temporary dialysis. Cr was down to 3.6 at discharge on 11/24/24. Readmission with creatinine of 4.6 and this continued to worsen. Nephrology consulted Tunneled HD catheter placement 12/07 and he has been receiving dialysis. Continue to appreciate Nephrology recommendations. He is being set up for dialysis with [facility] on discharge. (6) Multifocal pneumonia: Code(s): J18.8 - Other pneumonia, unspecified organism Status: Acute Assessment and Plan: As above. (7) Type 2 diabetes mellitus: Qualifiers: Diabetes mellitus correction insulin use: with correction use Diabetes mellitus complication status: with hypoglycemia Diabetes mellitus complication detail: without coma Qualified Code(s): E11.649 - Type 2 diabetes mellitus with hypoglycemia without coma; Z79.4 - half-way (current) use of insulin Code(s): E11.9 - Type 2 diabetes mellitus without complications Status: Chronic Assessment and Plan: A1c 5.0%. Continue Accu-Cheks with sliding scale. (8) Anemia: Code(s): D64.9 - Anemia, unspecified Status: Acute Assessment and Plan: Hgb low but stable in the 7-8 range. [place] to be multifactorial Epogen given. Follow and transfuse for Hgb <7. (9) Urinary tract infection: Code(s): N39.0 - Urinary tract infection, site not specified Status: Acute Assessment and Plan: UA noted. UCx negative. UTI ruled out Plan Right cephalic vein thrombosis: Found on this admission. Due to shortness of breath a repeat ultrasound study was performed on 12 13 24. Previous right upper limb cephalic vein thrombosis is now resolved. However, a new noncompressible thrombus in the left cephalic vein and potentially the left ulnar and radial veins are observed. pSBO - Recent partial small-bowel obstruction/hydrops gallbladder at last hospitalization. MiraLax was started. Patient is having loose stools on 12/14/2024, hold MiraLax. Kidney stones - Mildly obstructing left ureteral calculus and right renal stones status post cystoscopy bilateral retrograde left ureteroscopy stone extraction bilateral ureteral stent placement 11/16/2024 and Huddleston catheter placement. urology team on board. Urology contacted about when we can remove Huddleston. DVT prophylaxis: Hold heparin on 12/14/2024 due to anemia. Patient wishes to be full code. Saline lock IV. Chronic indwelling Huddleston catheter remains. Tunneled dialysis catheter in place right upper chest. Subjective Date/time seen: 12/14/24 18:02 Interval history: Patient has done a bit better with speech therapy today. G-tube remains but speech therapy will visit him again. He rest comfortably today and has no complaints. Nurse reports a loose bowel movement. Review of Systems Review of Systems: All systems reviewed & are unremarkable except as noted in HPI and below (Subjective) Exam Const: General: comfortable and no acute distress Other: A&O x3 Resp: Effort & Inspection: normal respiratory effort Cardio: Rate: regular rate Rhythm: regular rhythm GI: Inspection: non-distended GI Palp: Yes Soft to palpation Extrem: General: edema Objective Data Vital Signs Vital Signs: Vital Signs - 24 hr 12/13/24 20:00 12/13/24 20:00 12/13/24 20:00 Temperature 99.5 F Pulse Rate 74 70 Respiratory Rate 20 Blood Pressure 93/39 L Pulse Oximetry 97 97 Oxygen Delivery Nasal Cannula Oxygen Flow Rate 3 12/13/24 20:50 12/13/24 21:00 12/13/24 22:00 Temperature Pulse Rate 68 66 65 Respiratory Rate 16 16 Blood Pressure Pulse Oximetry Oxygen Delivery Oxygen Flow Rate 12/13/24 23:59 12/14/24 00:00 12/14/24 00:00 Temperature 99.4 F Pulse Rate 57 L 58 L Respiratory Rate 20 Blood Pressure 116/34 L Pulse Oximetry 99 98 Oxygen Delivery Nasal Cannula Oxygen Flow Rate 3 12/14/24 02:00 12/14/24 04:00 12/14/24 04:00 Temperature 98.1 F Pulse Rate 56 L 58 L Respiratory Rate 20 Blood Pressure 129/40 L Pulse Oximetry 100 100 Oxygen Delivery Nasal Cannula Oxygen Flow Rate 3 12/14/24 04:00 12/14/24 06:00 12/14/24 08:00 Temperature Pulse Rate 59 L 56 L 63 Respiratory Rate Blood Pressure Pulse Oximetry Oxygen Delivery Oxygen Flow Rate 12/14/24 08:00 12/14/24 08:07 12/14/24 09:06 Temperature 98.0 F Pulse Rate 65 57 L Respiratory Rate 20 20 Blood Pressure 138/59 L Pulse Oximetry 97 98 97 Oxygen Delivery Nasal Cannula Nasal Cannula Oxygen Flow Rate 3 3 12/14/24 09:06 12/14/24 09:16 12/14/24 10:00 Temperature Pulse Rate 57 L 54 L 57 L Respiratory Rate 20 20 Blood Pressure Pulse Oximetry Oxygen Delivery Oxygen Flow Rate 12/14/24 11:49 12/14/24 14:36 12/14/24 14:36 Temperature 99.6 F Pulse Rate 61 62 62 Respiratory Rate 20 20 20 Blood Pressure 118/45 L Pulse Oximetry 96 96 Oxygen Delivery Room Air Oxygen Flow Rate 12/14/24 14:47 12/14/24 16:00 Temperature 98 F Pulse Rate 65 84 Respiratory Rate 20 18 Blood Pressure 135/58 L Pulse Oximetry 98 Oxygen Delivery Oxygen Flow Rate Intake/Output Intake/Output: Intake & Output 12/11/24 12/12/24 12/13/24 12/14/24 23:59 23:59 23:59 23:59 Intake Total 1999 6262 1816 1283 Output Total 5587 11 8788 15 [place] [id number] 1349 -138 1266 Meds/Results Medications: Active Medications Generic Name Dose Route Start Last Admin Trade Name Freq PRN Reason Stop Dose Admin Acetaminophen 650 mg 12/04/24 01:55 Acetaminophen 650 Mg Suppository RECTAL Q6H PRN Mild Pain (1-3) or Fever Acetaminophen 650 mg 12/05/24 08:39 12/13/24 20:32 Acetaminophen 325 Mg Tablet PO 650 mg Q8H PRN Administration Pain, Mild Albuterol 2 puff 12/04/24 14:20 12/12/24 05:41 Albuterol Sulfate (*Sp) Aerosol 1 Puff INHALATION 2 puff Q4HRT PRN Administration Wheezing Albuterol/Ipratropium 3 ml 12/13/24 21:00 12/14/24 14:36 Ipratropium 0.5 Mg/Albuterol Sulfate 2.5 Mg Ampul.Neb 3 Ml INHALATION 3 ml TIDRT BERNARDO Administration Artificial Tears 1 drop 12/05/24 08:48 Artificial Tears Ophth Soln 15 Ml Bottle EACH EYE QID PRN Dry Eye(s) Aspirin 81 mg 12/10/24 08:05 12/14/24 08:32 Aspirin 81 Mg Chewable Tablet FEED TUBE 81 mg DAILY@0800 BERNARDO Administration Benzonatate 100 mg 12/05/24 08:39 Benzonatate 100 Mg Capsule PO TID PRN cough Brimonidine Tartrate 1 drop 12/05/24 14:00 12/14/24 14:10 Brimonidine Tartrate 0.2% Op Soln 5 Ml Btl EACH EYE 1 drop Q8HR BERNARDO Administration Brinzolamide 1 drop 12/05/24 14:00 12/14/24 14:10 Brinzolamide 1% Ophth Susp 10 Ml EACH EYE 1 drop Q8HR BERNARDO Administration Carvedilol 3.125 mg 12/05/24 08:00 12/07/24 09:01 Carvedilol 3.125 Mg Tablet PO Not Given BIDWM BERNARDO Dextrose 12.5 gm 12/04/24 00:50 12/05/24 13:05 Dextrose 50% 25 Gm/50 Ml Syringe IV PUSH 12.5 gm PRN PRN Administration Hypoglycemia Protocol Escitalopram Oxalate 10 mg 12/05/24 09:00 12/05/24 10:29 Escitalopram Oxalate 10 Mg Tablet PO Not Given QAM BERNARDO Fluticasone/Umeclidinium/Vilanterol 1 puff 12/05/24 09:00 12/07/24 07:55 Fluticasone/Umeclidin/Vilanter 100-62.5-25 Mcg Ellipta INHALATION Not Given DAILY BERNARDO Glucose 15 gm 12/04/24 00:50 Glucose Oral Gel 15 Gm Of Glucse In 37.5 Gm Tube PO PRN PRN Hypoglycemia Protocol Dextrose 1,000 mls @ 100 mls/hr 12/04/24 00:50 Dextrose 5% 1,000 Ml IVPB PRN PRN Hypoglycemia Protocol Albumin Human 50 mls @ 999 mls/hr 12/08/24 06:29 Albutein IVPB 01/07/25 06:28 Q10M PRN HYPOTENSION Insulin Aspart 2 - 5 units 12/07/24 12:00 12/14/24 17:21 Insulin Aspart (*Bkc) 100 Units/Ml SUB-Q 2 units Q6HR BERNARDO Administration Protocol Lidocaine 1 patch 12/05/24 09:00 12/14/24 08:33 Lidocaine 5% Patch TOPICAL Not Given DAILY [facility] Loperamide HCl 2 mg 12/05/24 08:39 Loperamide Hcl 2 Mg Capsule PO Q6H PRN Diarrhea Memantine 5 mg 12/10/24 11:00 12/14/24 08:32 Memantine 5 Mg Tablet FEED TUBE 5 mg DAILY BERNARDO Administration Metoprolol Tartrate 2.5 mg 12/07/24 11:12 Metoprolol Tartrate Inj 5 Mg/5 Ml Vial IV PUSH Q6H PRN Tachycardia Mirtazapine 7.5 mg 12/04/24 21:00 12/04/24 21:23 Mirtazapine 7.5 Mg Tablet PO 7.5 mg HS [facility] Administration Morphine Sulfate 2 mg 12/07/24 19:35 12/11/24 21:05 Morphine Sulfate (*Crx) 2 Mg/Ml Inj IV PUSH 2 mg Q4H PRN Administration Pain Rated 7-10 Ondansetron HCl 4 mg 12/13/24 10:46 Ondansetron Inj 4 Mg/2 Ml Vial IV PUSH Q6H PRN Nausea And Vomiting Oxycodone HCl 5 mg 12/04/24 14:02 12/11/24 16:25 Oxycodone Hcl (*Crx) 5 Mg Tab Ir PO 5 mg Q12HR PRN Administration Pain Rated 7-10 Rosuvastatin Calcium 40 mg 12/10/24 21:00 12/13/24 20:35 Rosuvastatin 20 Mg Tablet FEED TUBE 40 mg QHS [facility] Administration Tamsulosin HCl 0.4 mg 12/05/24 09:00 12/07/24 09:01 Tamsulosin Hcl 0.4 Mg Capsule PO Not Given DAILY [facility] Umeclidinium [place] 1 puff 12/05/24 08:00 12/05/24 12:04 Umeclidinium [place] 62.5 Mcg Ellipta [facility] Results: ITS Impressions Chest/Abdomen/Pelvis CT 12/04/24 07:39 IMPRESSION: 1. Left lower lobe pneumonia. 2. Mild to moderate bilateral renal atrophy with bilateral renal stents in expected position and similar pattern of increased density in the bilateral renal collecting systems which could represent either small residual excreted contrast as a recent contrast utilization or stones/stone fragments. Head CT 12/05/24 18:02 IMPRESSION: No acute intracranial process. Results reported telephonically to Kareen Avila RN by Dr. Medrano at 6:06 PM on 12/05/2024. Brain MRI 12/06/24 12:55 IMPRESSION: 1. No significant change in chronic infarcts, the largest involving the plantar to the right middle cerebral and portions of the anterior cerebral artery vascular distribution. No acute intracranial process. 2. Unchanged significant decrease in caliber of the flow void at the right internal carotid artery which could be related to atherosclerosis and stenosis or decreased perfusion requirement secondary to the extensive infarction in the right cerebral hemisphere. Abdomen X-Ray 12/08/24 15:34 IMPRESSION: Nasogastric tube in good position and ready for immediate use. Renal Ultrasound 12/09/24 19:53 IMPRESSION: Unremarkable renal sonogram findings. Chest X-Ray 12/13/24 09:33 Impression: 1: No acute cardiopulmonary disease. Venous Doppler Study 12/13/24 15:38 IMPRESSION: 1. Patent veins in the right upper limb with resolution of prior right cephalic vein thrombosis. 2. New noncompressible thrombus in the left cephalic vein, potentially also in the left ulnar and radial veins however assessment in these vessels is limited by the small size of the vessels and the presence of significant surrounding soft tissue edema. Labs Labs: Laboratory Results - last 24 hr 12/13/24 12/14/24 12/14/24 23:39 06:01 11:33 WBC RBC Hgb Hct MCV MCH MCHC RDW Plt Count MPV Immature Gran % (Auto) Neut % (Auto) Lymph % (Auto) [place] % (Auto) Eos % (Auto) Baso % (Auto) Lymph # (Auto) [place] # (Auto) Eos # (Auto) Baso # (Auto) Abs Immat Gran (auto) Absolute Neuts (auto) Absolute Nucleated RBC Band Neutrophils % Nucleated RBC % Platelet Estimate Polychromasia Hypochromasia Anisocytosis Ovalocytes Schistocytes Sodium Potassium Chloride Carbon Dioxide Anion Gap BUN Creatinine Estim Creat Clear Calc Estimated GFR Glucose POC Capillary Glucose 212 H 231 H 235 H Calcium Magnesium Total Bilirubin AST ALT Alkaline Phosphatase Total Protein Albumin Procalcitonin 12/14/24 12/14/24 11:43 17:07 WBC 15.0 H RBC 2.58 L Hgb 7.3 L Hct 24.2 L MCV 93.8 MCH 28.3 MCHC 30.2 L RDW 16.5 H Plt Count 182 MPV 10.2 Immature Gran % (Auto) 7.9 H Neut % (Auto) 68.4 Lymph % (Auto) 12.1 L [place] % (Auto) 6.1 Eos % (Auto) 5.0 H Baso % (Auto) 0.5 Lymph # (Auto) 1.81 [place] # (Auto) 0.9 H Eos # (Auto) 0.8 H Baso # (Auto) 0.1 Abs Immat Gran (auto) 1.19 H Absolute Neuts (auto) 10.2 H Absolute Nucleated RBC 0.020 H Band Neutrophils % Not Reportable Nucleated RBC % 0.1 Platelet Estimate Adequate Polychromasia 1+ Hypochromasia 1+ Anisocytosis 1+ Ovalocytes 1+ Schistocytes Rare Sodium 133 L Potassium 3.8 Chloride 99 Carbon Dioxide 26 Anion Gap 8 BUN 38 H D Creatinine 3.98 H Estim Creat Clear Calc 18 Estimated GFR 15 L Glucose 260 H POC Capillary Glucose 227 H Calcium 9.1 Magnesium 2.0 Total Bilirubin 0.4 AST 51 ALT 33 Alkaline Phosphatase 174 H Total Protein 5.8 L Albumin 3.0 L Procalcitonin 2.1
[2024-12-14] MEDS: ROSUVASTATIN 20 MG TABLET 40 MG FEED TUBE (20:10)
--- NOTE | 2024-12-14 20:58 | PC.NURSE ---
PT INCONTINENT OF URINE. WHILE CLEANING PATIENT AND CHANGING SHEETS HE USED PROFANITY AND CALLED EVERYONE BITCHES. ILL JUST RAFFY YOU ALL FOR TOUCHING ME. I PAY THE BILLS AND YOU BETTER DO WHAT I TELL YOU TO DO OR ELSE. EXPAINED TO PT THAT WE NEED TO KEEP HIM CLEAN AND DRY BUT CONTINUES TO YELL AND CURSE
[2024-12-15] VITALS (17 sets, daily range): BP systolic 128–145; BP diastolic 46–56; PULSE 57–77; RESP 16–20; TEMP 36.3–37.1; O2SAT 92–100
--- NOTE | 2024-12-15 00:09 | ECG_ITS ---
Test Date: 2024-12-15 00:19:17 Measurements Intervals [place] Rate: 73 P: 88 SC: 237 QRS: -8 QRSD: 88 T: 40 QT: 391 QTc: 432 Interpretive Statements SINUS RHYTHM WITH FIRST DEGREE AV BLOCK DELAYED PRECORDIAL R/S TRANSITION BORDERLINE ST-T WAVE ABNORMALITY- HIGH LATERAL LEADS BASELINE ARTIFACT- I, II, AVR, AVL, AVF, V1-V6 BORDERLINE ECG Compared to ECG 12/13/2024 09:00:52 First degree AV block now present Electronically Signed On 12-15-2024 06:25:46 CDT by Christofer Montiel D.O.
[2024-12-15] MEDS: INSULIN ASPART (*BKC) 100 UNITS/ML SUB-Q ×2 (00:26→06:13)
[2024-12-15] MEDS: MORPHINE SULFATE (*CRX) 2 MG/ML INJ IV PUSH ×2 (00:34→11:26)
--- NOTE | 2024-12-15 00:36 | PC.NURSE ---
CALLED INTO ROOM BY NURSE AID, PT C/O ELEPHANT ON CHEST, TELEMETRY APPLIED AND EKG ORDERED. ODALYS GUIDO NURSING PROJECT ADMINISTRATOR ON FLOOR. MARILY ACOSTA NOTIFIED. ORDERS RECEIVED. PT STATES PAIN LEVEL 2
[2024-12-15 01:21] LABS: Troponin I 0.019 ng/mL (0.000-0.034)
[2024-12-15 05:06] LABS: Hematocrit 23.8 % (42.0-52.0); Hemoglobin 7.1 g/dL (14.0-18.0); Immature Granulocyte Percent A 5.5 % (0-0.5); Lymphocytes Absolute Auto 1.77 K/mm3 (0.9-3.2); Mean Corpuscular HGB Conc 29.8 g/dl (32-36); Mean Corpuscular Hemoglobin 28.3 pg (26-34); Mean Corpuscular Volume 94.8 fl (80-100); Nucleated Red Blood Cells Absolute Auto 0.020 K/mm3 (0.0-0.012); Nucleated Red Blood Cells Perc 0.1 % (0.0-0.2); Platelet Count Result 235 k/mm3 (150-375); Red Blood Count 2.51 M/mm3 (4.6-6.20); White Blood Count 16.3 K/mm3 (4.5-10.0)
[2024-12-15] MEDS: BRINZOLAMIDE 1% OPHTH SUSP 10 ML 1 DROP EACH EYE ×3 (05:24→20:40)
[2024-12-15] MEDS: BRIMONIDINE TARTRATE 0.2% OP SOLN 5 ML BTL 1 DROP EACH EYE ×3 (05:24→20:40)
[2024-12-15 05:32] LABS: Albumin Level 3.0 g/dL (3.5-5.1); Anion Gap 7 mmol/L (4-12); Blood Urea Nitrogen 45 mg/dL (9-20); Calcium 9.4 mg/dL (8.4-10.2); Carbon Dioxide 27 mmol/L (22-30); Chloride 95 mmol/L (98-107); Estimated CRCL calculation 17 ml/min; Estimated Glomerular Filt Rate 13; Glucose 235 mg/dL (65-110); Magnesium 2.0 mg/dL (1.6-2.3); Potassium 3.9 mmol/L (3.4-5.0); Sodium 129 mmol/L (137-145)
[2024-12-15 05:37] LABS: Anisocytosis 1+; Band Neutrophils Percent 0 % (0-6); Hypochromasia 1+; Ovalocytes 1+; Schistocytes Rare
[2024-12-15 05:56] LABS: Troponin I 0.020 ng/mL (0.000-0.034)
[2024-12-15 06:03] LABS: Procalcitonin 1.9 ng/mL
[2024-12-15] MEDS: IPRATROPIUM 0.5 MG/ALBUTEROL SULFATE 2.5 MG AMPUL.NEB 3 ML INHALATION ×3 (07:40→21:03)
[2024-12-15] MEDS: LIDOCAINE 5% PATCH 1 PATCH TOPICAL (08:28)
--- NOTE | 2024-12-15 10:08 | PM.IMPN ---
Progress Note: A&P Assessment and Plan (1) Sepsis: Code(s): A41.9 - Sepsis, unspecified organism Status: Acute (2) Sepsis associated hypotension: Code(s): A41.9 - Sepsis, unspecified organism; I95.9 - Hypotension, unspecified Status: Acute (3) Acute hypoxic respiratory failure: Code(s): J96.01 - Acute respiratory failure with hypoxia Status: Acute (4) Altered mental status: Code(s): R41.82 - Altered mental status, unspecified Status: Acute (5) Acute kidney injury: Code(s): N17.9 - Acute kidney failure, unspecified Status: Acute (6) Multifocal pneumonia: Code(s): J18.8 - Other pneumonia, unspecified organism Status: Acute (7) Type 2 diabetes mellitus: Qualifiers: Diabetes mellitus 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 truck driver insulin use: with 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 truck driver use Diabetes mellitus complication status: with hypoglycemia Diabetes mellitus complication detail: without coma Qualified Code(s): E11.649 - Type 2 diabetes mellitus with hypoglycemia without coma; Z79.4 - 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 truck driver (current) use of insulin Code(s): E11.9 - Type 2 diabetes mellitus without complications Status: Chronic (8) Anemia: Code(s): D64.9 - Anemia, unspecified Status: Acute (9) Urinary tract infection: Code(s): N39.0 - Urinary tract infection, site not specified Status: Acute Plan On 12/15/2024 at 10:00 a.m. patient requesting comfort care and to be DNR. He is competent, A&O x3, discussion held with nurse present. Comfort care measures. Remove NG tube. Feed as tolerated. Subjective Date/time seen: 12/15/24 10:08 Interval history: Patient now refusing dialysis. He is A&O x3 and competent. Spoke with this on multiple occasions with nurse present. Patient verbalizes if he does not get dialysis and his kidneys cannot function properly he will . He wants to be DNR as well. Review of Systems Review of Systems: All systems reviewed & are unremarkable except as noted in HPI and below (Subjective) Exam Const: General: comfortable and no acute distress Other: A&O x3 Resp: Effort & Inspection: normal respiratory effort Cardio: Rate: regular rate Rhythm: regular rhythm GI: Inspection: non-distended GI Palp: Yes Soft to palpation Extrem: General: edema Objective Data Vital Signs Vital Signs: Vital Signs - 24 hr 12/14/24 11:49 12/14/24 14:36 12/14/24 14:36 Temperature 99.6 F Pulse Rate 61 62 62 Respiratory Rate 20 20 20 Blood Pressure 118/45 L Pulse Oximetry 96 96 Oxygen Delivery Room Air 12/14/24 14:47 12/14/24 16:00 12/14/24 20:13 Temperature 98 F 97.6 F Pulse Rate 65 84 73 Respiratory Rate 20 18 20 Blood Pressure 135/58 L 131/52 L Pulse Oximetry 98 93 Oxygen Delivery 12/14/24 21:09 12/14/24 21:09 12/14/24 21:14 Temperature Pulse Rate 67 62 Respiratory Rate 18 18 Blood Pressure Pulse Oximetry 91 Oxygen Delivery Room Air 12/15/24 00:15 12/15/24 00:40 12/15/24 04:00 Temperature 98.8 F Pulse Rate 77 74 68 Respiratory Rate 20 Blood Pressure 145/53 H Pulse Oximetry 98 Oxygen Delivery 12/15/24 04:44 12/15/24 07:43 12/15/24 07:44 Temperature 97.6 F Pulse Rate 71 66 66 Respiratory Rate 20 16 16 Blood Pressure 128/46 L Pulse Oximetry 94 92 Oxygen Delivery Room Air 12/15/24 07:54 12/15/24 08:40 Temperature Pulse Rate 60 66 Respiratory Rate 17 Blood Pressure Pulse Oximetry Oxygen Delivery Intake/Output Intake/Output: Intake & Output 12/12/24 12/13/24 12/14/24 12/15/24 23:59 23:59 23:59 23:59 Intake Total 1916 1816 1283 942 Output Total 50 2350 65 50 Balance 7736 -129 1218 892 Meds/Results Medications: Active Medications Generic Name Dose Route Start Last Admin Trade Name Freq PRN Reason Stop Dose Admin Acetaminophen 650 mg 12/04/24 01:55 Acetaminophen 650 Mg Suppository RECTAL Q6H PRN Mild Pain (1-3) or Fever Acetaminophen 650 mg 12/05/24 08:39 12/13/24 20:32 Acetaminophen 325 Mg Tablet PO 650 mg Q8H PRN Administration Pain, Mild Albuterol 2 puff 12/04/24 14:20 12/12/24 05:41 Albuterol Sulfate (*Sp) Aerosol 1 Puff INHALATION 2 puff Q4HRT PRN Administration Wheezing Albuterol/Ipratropium 3 ml 12/13/24 21:00 12/15/24 07:40 Ipratropium 0.5 Mg/Albuterol Sulfate 2.5 Mg Ampul.Neb 3 Ml INHALATION 3 ml TIDRT BERNARDO Administration Artificial Tears 1 drop 12/05/24 08:48 Artificial Tears Ophth Soln 15 Ml Bottle EACH EYE QID PRN Dry Eye(s) Aspirin 81 mg 12/10/24 08:05 12/14/24 08:32 Aspirin 81 Mg Chewable Tablet FEED TUBE 81 mg DAILY@0800 BERNARDO Administration Atropine Sulfate 1 - 2 drop 12/15/24 10:05 Atropine Sulfate 1% Ophth Soln 5 Ml Bottle SUBLINGUAL Q4H PRN Secretions Benzonatate 100 mg 12/05/24 08:39 Benzonatate 100 Mg Capsule PO TID PRN cough Brimonidine Tartrate 1 drop 12/05/24 14:00 12/15/24 05:24 Brimonidine Tartrate 0.2% Op Soln 5 Ml Btl EACH EYE 1 drop Q8HR BERNARDO Administration Brinzolamide 1 drop 12/05/24 14:00 12/15/24 05:24 Brinzolamide 1% Ophth Susp 10 Ml EACH EYE 1 drop Q8HR BERNARDO Administration Carvedilol 3.125 mg 12/05/24 08:00 12/07/24 09:01 Carvedilol 3.125 Mg Tablet PO Not Given BIDWM BERNARDO Dextrose 12.5 gm 12/04/24 00:50 12/05/24 13:05 Dextrose 50% 25 Gm/50 Ml Syringe IV PUSH 12.5 gm PRN PRN Administration Hypoglycemia Protocol Epoetin Julien-epbx 20,000 units 12/15/24 17:51 Epoetin Julien-Epbx 20,000 Units/Ml Vial IV PUSH 12/15/24 17:52 ONCE ONE Escitalopram Oxalate 10 mg 12/05/24 09:00 12/05/24 10:29 Escitalopram Oxalate 10 Mg Tablet PO Not Given QAM BERNARDO Fluticasone/Umeclidinium/Vilanterol 1 puff 12/05/24 09:00 12/07/24 07:55 Fluticasone/Umeclidin/Vilanter 100-62.5-25 Mcg Ellipta INHALATION Not Given DAILY BERNARDO Glucose 15 gm 12/04/24 00:50 Glucose Oral Gel 15 Gm Of Glucse In 37.5 Gm Tube PO PRN PRN Hypoglycemia Protocol Dextrose 1,000 mls @ 100 mls/hr 12/04/24 00:50 Dextrose 5% 1,000 Ml IVPB PRN PRN Hypoglycemia Protocol Albumin Human 50 mls @ 999 mls/hr 12/08/24 06:29 Albutein IVPB 01/07/25 06:28 Q10M PRN HYPOTENSION Insulin Aspart 2 - 5 units 12/07/24 12:00 12/15/24 06:13 Insulin Aspart (*Bkc) 100 Units/Ml SUB-Q 2 units Q6HR BERNARDO Administration Protocol Lidocaine 1 patch 12/05/24 09:00 12/15/24 08:28 Lidocaine 5% Patch TOPICAL 1 patch DAILY BERNARDO Administration Loperamide HCl 2 mg 12/05/24 08:39 Loperamide Hcl 2 Mg Capsule PO Q6H PRN Diarrhea Lorazepam 2 mg 12/15/24 10:05 Lorazepam Inj (*Crx) 2 Mg/Ml Vial IV PUSH Q2H PRN Anxiety/Comfort Memantine 5 mg 12/10/24 11:00 12/14/24 08:32 Memantine 5 Mg Tablet FEED TUBE 5 mg DAILY BERNARDO Administration Metoprolol Tartrate 2.5 mg 12/07/24 11:12 Metoprolol Tartrate Inj 5 Mg/5 Ml Vial IV PUSH Q6H PRN Tachycardia Mirtazapine 7.5 mg 12/04/24 21:00 12/04/24 21:23 Mirtazapine 7.5 Mg Tablet PO 7.5 mg HS BERNARDO Administration Morphine Sulfate 2 mg 12/07/24 19:35 12/11/24 21:05 Morphine Sulfate (*Crx) 2 Mg/Ml Inj IV PUSH 2 mg Q4H PRN Administration Pain Rated 7-10 Morphine Sulfate 2 mg 12/15/24 10:05 Morphine Sulfate (*Crx) 2 Mg/Ml Inj IV PUSH Q30M PRN COMFORT Ondansetron HCl 4 mg 12/13/24 10:46 Ondansetron Inj 4 Mg/2 Ml Vial IV PUSH Q6H PRN Nausea And Vomiting Oxycodone HCl 5 mg 12/04/24 14:02 12/11/24 16:25 Oxycodone Hcl (*Crx) 5 Mg Tab Ir PO 5 mg Q12HR PRN Administration Pain Rated 7-10 Rosuvastatin Calcium 40 mg 12/10/24 21:00 12/14/24 20:10 Rosuvastatin 20 Mg Tablet FEED TUBE 40 mg QHS BERNARDO Administration Tamsulosin HCl 0.4 mg 12/05/24 09:00 12/07/24 09:01 Tamsulosin Hcl 0.4 Mg Capsule PO Not Given DAILY [facility] Umeclidinium [place] 1 puff 12/05/24 08:00 12/05/24 12:04 Umeclidinium [place] 62.5 Mcg Ellipta [facility]ATION [facility] Results: ITS Impressions Chest/Abdomen/Pelvis CT 12/04/24 07:39 IMPRESSION: 1. Left lower lobe pneumonia. 2. Mild to moderate bilateral renal atrophy with bilateral renal stents in expected position and similar pattern of increased density in the bilateral renal collecting systems which could represent either small residual excreted contrast as a recent contrast utilization or stones/stone fragments. Head CT 12/05/24 18:02 IMPRESSION: No acute intracranial process. Results reported telephonically to Kareen Avila RN by Dr. Medrano at 6:06 PM on 12/05/2024. Brain MRI 12/06/24 12:55 IMPRESSION: 1. No significant change in chronic infarcts, the largest involving the plantar to the right middle cerebral and portions of the anterior cerebral artery vascular distribution. No acute intracranial process. 2. Unchanged significant decrease in caliber of the flow void at the right internal carotid artery which could be related to atherosclerosis and stenosis or decreased perfusion requirement secondary to the extensive infarction in the right cerebral hemisphere. Abdomen X-Ray 12/08/24 15:34 IMPRESSION: Nasogastric tube in good position and ready for immediate use. Renal Ultrasound 12/09/24 19:53 IMPRESSION: Unremarkable renal sonogram findings. Chest X-Ray 12/13/24 09:33 Impression: 1: No acute cardiopulmonary disease. Venous Doppler Study 12/13/24 15:38 IMPRESSION: 1. Patent veins in the right upper limb with resolution of prior right cephalic vein thrombosis. 2. New noncompressible thrombus in the left cephalic vein, potentially also in the left ulnar and radial veins however assessment in these vessels is limited by the small size of the vessels and the presence of significant surrounding soft tissue edema. Labs Labs: Laboratory Results - last 24 hr 12/14/24 12/14/24 12/14/24 11:33 11:43 17:07 WBC 15.0 H RBC 2.58 L Hgb 7.3 L Hct 24.2 L MCV 93.8 MCH 28.3 MCHC 30.2 L RDW 16.5 H Plt Count 182 MPV 10.2 Immature Gran % (Auto) 7.9 H Neut % (Auto) 68.4 Lymph % (Auto) 12.1 L Christian % (Auto) 6.1 Eos % (Auto) 5.0 H Baso % (Auto) 0.5 Lymph # (Auto) 1.81 Christian # (Auto) 0.9 H Eos # (Auto) 0.8 H Baso # (Auto) 0.1 Abs Immat Gran (auto) 1.19 H Absolute Neuts (auto) 10.2 H Absolute Nucleated RBC 0.020 H Band Neutrophils % Not Reportable Nucleated RBC % 0.1 Platelet Estimate Adequate Polychromasia 1+ Hypochromasia 1+ Anisocytosis 1+ Ovalocytes 1+ Schistocytes Rare Sodium 133 L Potassium 3.8 Chloride 99 Carbon Dioxide 26 Anion Gap 8 BUN 38 H D Creatinine 3.98 H Estim Creat Clear Calc 18 Estimated GFR 15 L Glucose 260 H POC Capillary Glucose 235 H 227 H Calcium 9.1 Phosphorus Magnesium 2.0 Total Bilirubin 0.4 AST 51 ALT 33 Alkaline Phosphatase 174 H Troponin I Total Protein 5.8 L Albumin 3.0 L Procalcitonin 2.1 12/15/24 12/15/24 12/15/24 00:04 00:54 04:31 WBC 16.3 H RBC 2.51 L Hgb 7.1 L Hct 23.8 L MCV 94.8 MCH 28.3 MCHC 29.8 L RDW 16.8 H Plt Count 235 MPV 10.2 Immature Gran % (Auto) 5.5 H Neut % (Auto) 72.6 Lymph % (Auto) 10.9 L Christian % (Auto) 6.0 Eos % (Auto) 4.5 H Baso % (Auto) 0.5 Lymph # (Auto) 1.77 Christian # (Auto) 1.0 H Eos # (Auto) 0.7 H Baso # (Auto) 0.1 Abs Immat Gran (auto) 0.90 H Absolute Neuts (auto) 11.8 H Absolute Nucleated RBC 0.020 H Band Neutrophils % 0 Nucleated RBC % 0.1 Platelet Estimate Slightly increased Polychromasia Hypochromasia 1+ Anisocytosis 1+ Ovalocytes 1+ Schistocytes Rare Sodium 129 L Potassium 3.9 Chloride 95 L Carbon Dioxide 27 Anion Gap 7 BUN 45 H Creatinine 4.63 H Estim Creat Clear Calc 17 Estimated GFR 13 L Glucose 235 H POC Capillary Glucose 215 H Calcium 9.4 Phosphorus 3.4 Magnesium 2.0 Total Bilirubin AST ALT Alkaline Phosphatase Troponin I 0.019 0.020 Total Protein Albumin 3.0 L Procalcitonin 1.9 12/15/24 06:10 WBC RBC Hgb Hct MCV MCH MCHC RDW Plt Count MPV Immature Gran % (Auto) Neut % (Auto) Lymph % (Auto) Christian % (Auto) Eos % (Auto) Baso % (Auto) Lymph # (Auto) Christian # (Auto) Eos # (Auto) Baso # (Auto) Abs Immat Gran (auto) Absolute Neuts (auto) Absolute Nucleated RBC Band Neutrophils % Nucleated RBC % Platelet Estimate Polychromasia Hypochromasia Anisocytosis Ovalocytes Schistocytes Sodium Potassium Chloride Carbon Dioxide Anion Gap BUN Creatinine Estim Creat Clear Calc Estimated GFR Glucose POC Capillary Glucose 250 H Calcium Phosphorus Magnesium Total Bilirubin AST ALT Alkaline Phosphatase Troponin I Total Protein Albumin Procalcitonin
--- NOTE | 2024-12-15 10:43 | PCNFU ---
Nutrition Follow-Up Complete: Inadequate energy intake related to altered mental status as evidenced by NPO day 4 Goal:Meet estimated nutrition needs Pt meeting needs via tube feeding Pt current nutrition is Tube feeding: Nepro @ 50ml/hr to provide 1980kcals, 89g protein, 800ml free water. Nutrition recommendation: Advance PO diet Last recorded weight is 102 kg. Bowel Motility: +BM 12/14 Labs Reviewed: Hgb:7.1, HCT:23.8, Alb:3.0, Na:129, BUN:45, Cr:4.6, Glu:235 Meds Noted: novolog, remeron Skin: DTPI to sacrum Additional Notes: Pt on Nepro tube feedings, tube to be pulled today and feedings discontinued. Speech working with pt to advance to PO diet, recommendations for a pureed diet, level 2 thickened liquids. Nurse reports pt does not like the modified consistencies. Pt moving to comfort care. Will monitor for status change and diet order changes. Monitoring mental status, diet orders, swallow ability, weights, labs, plan of care Follow up in 3 days.
--- NOTE | 2024-12-15 17:04 | PC.NURSE ---
Steelscope Operator and Dr. Dumont has had several conversation/ education regarding patients wishes, Patient adamantly refusing dialysis does not ever want it again, stop asking me, risk of stopping dialysis reinforced to patient who states yes i know i will ', Patient mother present for last conversation, and is upset with patients wishes, stating she is POA, educated her that patient has been coherent, alert and able to answer all orientation questions appropriately several times today therefore he can make his wishes know, Patient tells Dr. Dumont if im going to i want it to be on my own free will, and on my own terms, and his is tired of discussing dialysis. Patients wants to eat what he wants and be kept out of pain. Patient yells at his mother this is my body. Dr. Dumont explained to patients mother that we must respect patients wishes and comfort care and DNR has been ordered per patients wishes. She request [place] to see patient who visited with patient and family at length.
[2024-12-15] MEDS: ROSUVASTATIN 20 MG TABLET 40 MG FEED TUBE (20:40)
[2024-12-16] VITALS (9 sets, daily range): BP systolic 143; BP diastolic 59; PULSE 58–73; RESP 18–20; TEMP 36.2; O2SAT 93–99
[2024-12-16] MEDS: BRIMONIDINE TARTRATE 0.2% OP SOLN 5 ML BTL 1 DROP EACH EYE ×3 (05:50→20:11)
[2024-12-16] MEDS: BRINZOLAMIDE 1% OPHTH SUSP 10 ML 1 DROP EACH EYE ×3 (05:50→20:11)
[2024-12-16] MEDS: IPRATROPIUM 0.5 MG/ALBUTEROL SULFATE 2.5 MG AMPUL.NEB 3 ML INHALATION ×3 (07:52→21:02)
--- NOTE | 2024-12-16 08:46 | PM.EVENT ---
Event Note Event Note Event Note: Patient is now comfort care. Renal will sign off.
--- NOTE | 2024-12-16 09:03 | PM.IMPN ---
Progress Note: A&P Assessment and Plan (1) Sepsis: Code(s): A41.9 - Sepsis, unspecified organism Status: Acute (2) Sepsis associated hypotension: Code(s): A41.9 - Sepsis, unspecified organism; I95.9 - Hypotension, unspecified Status: Acute (3) Acute hypoxic respiratory failure: Code(s): J96.01 - Acute respiratory failure with hypoxia Status: Acute (4) Altered mental status: Code(s): R41.82 - Altered mental status, unspecified Status: Acute (5) Acute kidney injury: Code(s): N17.9 - Acute kidney failure, unspecified Status: Acute (6) Multifocal pneumonia: Code(s): J18.8 - Other pneumonia, unspecified organism Status: Acute (7) Type 2 diabetes mellitus: Qualifiers: Diabetes mellitus remote computer terminal operator insulin use: with remote computer terminal operator use Diabetes mellitus complication status: with hypoglycemia Diabetes mellitus complication detail: without coma Qualified Code(s): E11.649 - Type 2 diabetes mellitus with hypoglycemia without coma; Z79.4 - remote computer terminal operator (current) use of insulin Code(s): E11.9 - Type 2 diabetes mellitus without complications Status: Chronic (8) Anemia: Code(s): D64.9 - Anemia, unspecified Status: Acute (9) Urinary tract infection: Code(s): N39.0 - Urinary tract infection, site not specified Status: Acute Plan 69-year-old male presents to [facility] ER on 12/04/2024 from [facility] with reports of altered mental status. He was recently discharged from [facility] on 11/24/2024 with hypotension and acute renal failure. He has [facility] hypertension, anemia, diabetes, history of right CVA with left hemiplegia, CKD, CAD, ESRD on dialysis. On admission, the patient was reported to be comfort care measures only. As he was altered, his mother reversed that and asked that all treatment be given and he be full code. Primary diagnosis on admission was sepsis, multifocal pneumonia, sepsis with hypotension, acute hypoxic respiratory failure. Throughout his stay he has been treated for multiple acute conditions. On 01/01 at 10:00 a.m. the patient requested to be placed on comfort care and to be DNR. We held multiple conversations with nursing present. Patient was competent and able to explain his medical conditions, noting that if he did not receive dialysis or other medications to treat his conditions that he may . Shortly after, his mother arrived and she pressured to reverse his decision. This time, the patient is A&O x4 and as described competent and coherent to make his own decisions. He told his mother, ?Stop controlling me and let me on my own free will. I do not want dialysis I do not want CPR. This conversation was witnessed by the nurse as well. Comfort care measures. DNR. Subjective Date/time seen: 12/16/24 09:03 Interval history: No acute overnight events noted. Patient denies complaints. He rest comfortably. He reiterates his wishes to be comfort care. He does not wish to take his oral medications. As noted, he declined a pureed diet and will like a regular diet. Review of Systems Review of Systems: All systems reviewed & are unremarkable except as noted in HPI and below (Subjective) Exam Const: General: comfortable and no acute distress Other: A&O x3 Resp: Effort & Inspection: normal respiratory effort Cardio: Rate: regular rate Rhythm: regular rhythm GI: Inspection: non-distended GI Palp: Yes Soft to palpation Extrem: General: edema Objective Data Vital Signs Vital Signs: Vital Signs - 24 hr 12/15/24 12:00 12/15/24 13:14 12/15/24 13:24 Temperature Pulse Rate 63 64 60 Respiratory Rate 19 Blood Pressure Pulse Oximetry Oxygen Delivery 12/15/24 13:54 12/15/24 16:00 12/15/24 20:00 Temperature 97.4 F L Pulse Rate 65 60 Respiratory Rate 18 Blood Pressure 144/52 H Pulse Oximetry 95 Oxygen Delivery Room Air 12/15/24 20:01 12/15/24 21:03 12/15/24 21:05 Temperature 97.6 F Pulse Rate 62 57 L Respiratory Rate 20 17 Blood Pressure 138/56 L Pulse Oximetry 100 94 Oxygen Delivery Room Air 12/15/24 21:14 12/16/24 07:58 12/16/24 08:30 Temperature Pulse Rate 59 L 63 60 Respiratory Rate 17 18 18 Blood Pressure Pulse Oximetry Oxygen Delivery Intake/Output Intake/Output: Intake & Output 12/13/24 12/14/24 12/15/24 12/16/24 23:59 23:59 23:59 23:59 Intake Total 1816 1283 1535 0 Output Total 2350 65 200 0 Balance -534 1218 1335 0 Meds/Results Medications: Active Medications Generic Name Dose Route Start Last Admin Trade Name Freq PRN Reason Stop Dose Admin Acetaminophen 650 mg 12/04/24 01:55 Acetaminophen 650 Mg Suppository RECTAL Q6H PRN Mild Pain (1-3) or Fever Acetaminophen 650 mg 12/05/24 08:39 12/13/24 20:32 Acetaminophen 325 Mg Tablet PO 650 mg Q8H PRN Administration Pain, Mild Albuterol 2 puff 12/04/24 14:20 12/12/24 05:41 Albuterol Sulfate (*Sp) Aerosol 1 Puff INHALATION 2 puff Q4HRT PRN Administration Wheezing Albuterol/Ipratropium 3 ml 12/13/24 21:00 12/16/24 07:52 Ipratropium 0.5 Mg/Albuterol Sulfate 2.5 Mg Ampul.Neb 3 Ml INHALATION 3 ml TIDRT BERNARDO Administration Artificial Tears 1 drop 12/05/24 08:48 Artificial Tears Ophth Soln 15 Ml Bottle EACH EYE QID PRN Dry Eye(s) Atropine Sulfate 1 - 2 drop 12/15/24 10:05 Atropine Sulfate 1% Ophth Soln 5 Ml Bottle SUBLINGUAL Q4H PRN Secretions Benzonatate 100 mg 12/05/24 08:39 Benzonatate 100 Mg Capsule PO TID PRN cough Brimonidine Tartrate 1 drop 12/05/24 14:00 12/16/24 05:50 Brimonidine Tartrate 0.2% Op Soln 5 Ml Btl EACH EYE 1 drop Q8HR BERNARDO Administration Brinzolamide 1 drop 12/05/24 14:00 12/16/24 05:50 Brinzolamide 1% Ophth Susp 10 Ml EACH EYE 1 drop Q8HR BERNARDO Administration Dextrose 12.5 gm 12/04/24 00:50 12/05/24 13:05 Dextrose 50% 25 Gm/50 Ml Syringe IV PUSH 12.5 gm PRN PRN Administration Hypoglycemia Protocol Escitalopram Oxalate 10 mg 12/05/24 09:00 12/05/24 10:29 Escitalopram Oxalate 10 Mg Tablet PO Not Given QAM BERNARDO Fluticasone/Umeclidinium/Vilanterol 1 puff 12/05/24 09:00 12/07/24 07:55 Fluticasone/Umeclidin/Vilanter 100-62.5-25 Mcg Ellipta INHALATION Not Given DAILY [facility] Glucose 15 gm 12/04/24 00:50 Glucose Oral Gel 15 Gm Of Glucse In 37.5 Gm Tube PO PRN PRN Hypoglycemia Protocol Dextrose 1,000 mls @ 100 mls/hr 12/04/24 00:50 Dextrose 5% 1,000 Ml IVPB PRN PRN Hypoglycemia Protocol Insulin Aspart 2 - 5 units 12/07/24 12:00 12/16/24 05:50 Insulin Aspart (*Bkc) 100 Units/Ml SUB-Q Not Given Q6HR BERNARDO Protocol Lidocaine 1 patch 12/05/24 09:00 12/15/24 08:28 Lidocaine 5% Patch TOPICAL 1 patch DAILY BERNARDO Administration Loperamide HCl 2 mg 12/05/24 08:39 Loperamide Hcl 2 Mg Capsule PO Q6H PRN Diarrhea Lorazepam 2 mg 12/15/24 10:05 Lorazepam Inj (*Crx) 2 Mg/Ml Vial IV PUSH Q2H PRN Anxiety/Comfort Memantine 5 mg 12/10/24 11:00 12/15/24 10:13 Memantine 5 Mg Tablet FEED TUBE Not Given DAILY [facility] Metoprolol Tartrate 2.5 mg 12/07/24 11:12 Metoprolol Tartrate Inj 5 Mg/5 Ml Vial IV PUSH Q6H PRN Tachycardia Mirtazapine 7.5 mg 12/04/24 21:00 12/04/24 21:23 Mirtazapine 7.5 Mg Tablet PO 7.5 mg HS BERNARDO Administration Morphine Sulfate 2 mg 12/15/24 10:05 12/15/24 11:26 Morphine Sulfate (*Crx) 2 Mg/Ml Inj IV PUSH 2 mg Q30M PRN Administration COMFORT Ondansetron HCl 4 mg 12/13/24 10:46 Ondansetron Inj 4 Mg/2 Ml Vial IV PUSH Q6H PRN Nausea And Vomiting Oxycodone HCl 5 mg 12/04/24 14:02 12/11/24 16:25 Oxycodone Hcl (*Crx) 5 Mg Tab Ir PO 5 mg Q12HR PRN Administration Pain Rated 7-10 Rosuvastatin Calcium 40 mg 12/10/24 21:00 12/15/24 20:40 Rosuvastatin 20 Mg Tablet FEED TUBE 40 mg QHS BERNARDO Administration Tamsulosin HCl 0.4 mg 12/05/24 09:00 12/07/24 09:01 Tamsulosin Hcl 0.4 Mg Capsule PO Not Given DAILY [facility] Umeclidinium [place] 1 puff 12/05/24 08:00 12/05/24 12:04 Umeclidinium [place] 62.5 Mcg Ellipta INHALATION [facility] Results: ITS Impressions Chest/Abdomen/Pelvis CT 12/04/24 07:39 IMPRESSION: 1. Left lower lobe pneumonia. 2. Mild to moderate bilateral renal atrophy with bilateral renal stents in expected position and similar pattern of increased density in the bilateral renal collecting systems which could represent either small residual excreted contrast as a recent contrast utilization or stones/stone fragments. Head CT 12/05/24 18:02 IMPRESSION: No acute intracranial process. Results reported telephonically to Kareen Avila RN by Dr. Medrano at 6:06 PM on 12/05/2024. Brain MRI 12/06/24 12:55 IMPRESSION: 1. No significant change in chronic infarcts, the largest involving the plantar to the right middle cerebral and portions of the anterior cerebral artery vascular distribution. No acute intracranial process. 2. Unchanged significant decrease in caliber of the flow void at the right internal carotid artery which could be related to atherosclerosis and stenosis or decreased perfusion requirement secondary to the extensive infarction in the right cerebral hemisphere. Abdomen X-Ray 12/08/24 15:34 IMPRESSION: Nasogastric tube in good position and ready for immediate use. Renal Ultrasound 12/09/24 19:53 IMPRESSION: Unremarkable renal sonogram findings. Chest X-Ray 12/13/24 09:33 Impression: 1: No acute cardiopulmonary disease. Venous Doppler Study 12/13/24 15:38 IMPRESSION: 1. Patent veins in the right upper limb with resolution of prior right cephalic vein thrombosis. 2. New noncompressible thrombus in the left cephalic vein, potentially also in the left ulnar and radial veins however assessment in these vessels is limited by the small size of the vessels and the presence of significant surrounding soft tissue edema. Labs Labs: Laboratory Results - last 24 hr 12/15/24 12/15/24 11:43 16:54 POC Capillary Glucose 239 H 185 H
[2024-12-16] MEDS: LIDOCAINE 5% PATCH 1 PATCH TOPICAL (09:08)
[2024-12-16] MEDS: MEMANTINE 5 MG TABLET FEED TUBE (09:50)
[2024-12-16] MEDS: MORPHINE SULFATE (*CRX) 2 MG/ML INJ IV PUSH ×3 (14:59→21:21)
[2024-12-16] MEDS: HYDROmorphone HCL INJ (*CRX) 2 MG/ML VIAL 0.5 MG IV PUSH (22:55)
[2024-12-17] VITALS: BP 148/56; PULSE 70; RESP 18; TEMP 36.4; O2SAT 99
[2024-12-17] MEDS: MORPHINE SULFATE (*CRX) 2 MG/ML INJ IV PUSH ×4 (01:11→11:38)
[2024-12-17] MEDS: BRIMONIDINE TARTRATE 0.2% OP SOLN 5 ML BTL 1 DROP EACH EYE ×2 (05:39→14:21)
[2024-12-17] MEDS: BRINZOLAMIDE 1% OPHTH SUSP 10 ML 1 DROP EACH EYE ×2 (05:39→14:21)
[2024-12-17] MEDS: ONDANSETRON INJ 4 MG/2 ML VIAL IV PUSH (06:12)
[2024-12-17] MEDS: IPRATROPIUM 0.5 MG/ALBUTEROL SULFATE 2.5 MG AMPUL.NEB 3 ML INHALATION ×2 (08:11→14:03)
[2024-12-17 08:12] VITALS: PULSE 62; RESP 20; O2SAT 99
[2024-12-17 08:20] VITALS: PULSE 64; RESP 20
--- NOTE | 2024-12-17 11:59 | P.OP_ITS ---
Procedure Note - Detailed Date of Procedure 12/17/24 Pre-op Diagnosis renal failure Post-op Diagnosis Same Procedure Performed removal of left internal jugular tunneled hemodialysis catheter Surgeon Carolann Dubois MD Anesthesia None Indications 69-year-old male with multiple medical issues including renal failure that prompted emergent dialysis access. Dr. Munoz placed a left internal jugular tunneled hemodialysis catheter on 12/07, please see full operative report for details. The patient has received hemodialysis 3 times without issue. At this time, the patient is refusing any further dialysis and would like to proceed with comfort care measures. I have been asked to remove the hemodialysis cathet er at this time. Findings Left internal jugular tunneled hemodialysis catheter Description of Procedure The patient was placed in the supine position. Of note he had just received morphine prior to this procedure. I removed the dressing from the hemodialysis catheter. The 2 stitches holding the catheter on to the left chest were cut. Using very gentle traction, I was able to release the cuff in the subcutaneous tissue just superior to the exit site. Once the cuff was completely freed, I was able to gently removed the catheter in full. I then held pressure at the level of the left internal jugular vein for approximately 5 minutes. A pressure dressing was then placed in the level of the left internal jugular vein. No bleeding was noted. The exit site was then with Neosporin and a Band-Aid was placed. The patient tolerated the procedure well. Estimated Blood Loss 5 Pathology None sent Condition Stable Disposition No change [facility] Billing Surgery - Charge Forward: Surgery Billing
--- NOTE | 2024-12-17 13:41 | PM.DS ---
DS: Admitting Diagnosis Discharge Date 12/17/2024 Admitting Diagnosis Altered mental status DS: Discharge Diagnosis Discharge Diagnosis (1) Acute renal failure: Qualifiers: Acute renal failure type: unspecified Qualified Code(s): N17.9 - Acute kidney failure, unspecified Code(s): N17.9 - Acute kidney failure, unspecified Status: Acute DS: Summary Hospital Course Hospital Course: 69-year-old male presents to [facility] ER on 12/04/2024 from [facility] with reports of altered mental status. He was recently discharged from [facility] on 11/24/2024 with hypotension and acute renal failure. He has [facility] hypertension, anemia, diabetes, history of right CVA with left hemiplegia, CKD, CAD, ESRD on dialysis. On admission, the patient was reported to be comfort care measures only. As he was altered, his mother reversed that and asked that all treatment be given and he be full code. Primary diagnosis on admission was sepsis, multifocal pneumonia, sepsis with hypotension, acute hypoxic respiratory failure. Throughout his stay he has been treated for multiple acute conditions. On 01/01 at 10:00 a.m. the patient requested to be placed on comfort care and to be DNR. We held multiple conversations with nursing present. Patient was competent and able to explain his medical conditions, noting that if he did not receive dialysis or other medications to treat his conditions that he may . Shortly after, his mother arrived and she pressured to reverse his decision. This time, the patient is A&O x4 and as described competent and coherent to make his own decisions. He told his mother, ?Stop controlling me and let me on my own free will. I do not want dialysis I do not want CPR. This conversation was witnessed by the nurse as well. The patient does not want to be in the hospital anymore. On 12/17/2024 he is being discharged to assisted facility with comfort care measures/DNR as requested by the patient. Time Spent with Patient Time attestation: Total time spent providing and/or coordinating discharge services: Time spent: Greater than 30 minutes Exam Const: General: comfortable and no acute distress Eyes: Pupils: Equal, round and reactive pupils present Neck: Neck: supple Resp: Effort & Inspection: normal respiratory effort Auscultation: clear to auscultation bilaterally Cardio: Rate: regular rate Rhythm: regular rhythm GI: GI Palp: Yes Soft to palpation Extrem: General: no edema Discharge Plan Discharge Attending physician on discharge: Marine Dumont Consulting providers: Pat Gonzalez; Oscar Hernandez Riaz Discharging Clinician: Marine Dumont Patient Disposition: SNF Activity: may shower Diet: as tolerated Patient Instructions: Heart Failure (DC), Acute Kidney Injury (GEN), Sepsis (GEN), Pneumonia (GEN) Patient Language: Polish Stand Alone Forms: General Discharge Information, Half-Way Discharge Discharge Medications: Discontinued benzonatate 100 mg capsule 100 mg PO TID PRN (Reason: cough ) Breztri Aerosphere 160-9-4.8 mcg/actuation HFA aerosol inhaler 2 inh INHALATION BID oxycodone 5 mg tablet 5 mg PO Q12H Simbrinza 1-0.2 % drops,suspension 1 drp EACH EYE TID insulin glargine [Lantus U-100 Insulin] 100 unit/mL Solution 15 unit subcut HS 15 Days Qty: 2.25 0RF insulin aspart U-100 [Novolog FlexPen U-100 Insulin] 100 unit/mL (3 mL) insulin pen 1 sliding scale dose subcut USEASDIRECTD Qty: 15 2RF Rx Instructions: sliding scale insulin 70-130 - 0 units of insulin 131-180 - 2 units of insulin 181-240 - 4 units of insulin 241- 300- 6 units of insulin 301- 350 - 8 units of insulin 351-400 - 10 units of insulin >400 - 12 units of insulin cholestyramine 4 gram powder 4 g PO TID Rx Instructions: administer w/meal; avoid other meds within 1hr before or 4-6hr after dose psyllium husk [Fiber (psyllium husk)] 0.4 gram capsule 0.4 g PO DAILY PRN (Reason: constipation) lidocaine 5 % adhesive patch,medicated 1 patch topical DAILY Rx Instructions: remove at 6 pm sennosides [Senokot] 8.6 mg Tablet 8.6 mg PO PRN PRN (Reason: Constipation) acetaminophen 325 mg Tablet 650 mg PO Q8H PRN (Reason: Pain, Mild) loperamide [Anti-Diarrheal (loperamide)] 2 mg Capsule 2 mg PO Q6H PRN (Reason: Diarrhea) dextromethorphan-guaifenesin 10-100 mg/5 mL Syrup 10 ml PO Q4-6H PRN (Reason: Cough) aspirin 81 mg Tablet,Delayed Release (Dr/Ec) 81 mg PO DAILY carvedilol 3.125 mg Tablet 3.125 mg PO BID Rx Instructions: must administer with a meal/food cabergoline 0.5 mg Tablet 1 mg PO 2XW Rx Instructions: 1mg, Wednesday and Wednesday gabapentin 100 mg Capsule 100 mg PO TID albuterol sulfate 90 mcg/actuation Hfa Aerosol Inhaler 2 puff INHALATION Q4H PRN (Reason: Wheezing) ondansetron 4 mg Tablet,Disintegrating 4 mg PO Q4H PRN (Reason: Nausea And Vomiting) glipizide 5 mg Tablet 5 mg PO QAM escitalopram oxalate 20 mg Tablet 10 mg PO QAM carboxymethylcellulose sodium [Refresh Plus] 0.5 % Dropperette 1 drp EACH EYE QID PRN (Reason: Dry Eyes) rosuvastatin 40 mg Tablet 40 mg PO QHS melatonin 5 mg Tablet 5 mg PO HS Spiriva Respimat 2.5 mcg/actuation Mist 2 puff INHALATION QAM Drizalma Sprinkle 20 mg capsule, delayed rel sprinkle 20 mg PO DAILY tamsulosin [Flomax] 0.4 mg capsule 0.4 mg PO DAILY memantine [Namenda] 5 mg tablet 5 mg PO DAILY mirtazapine 7.5 mg tablet 7.5 mg PO HS ipratropium-albuterol 0.5 mg-3 mg(2.5 mg base)/3 mL solution for nebulization 3 ml inhalation TID Date of admission: 12/03/24 23:05 Primary Care Provider: AdrianBrandon Admitting Provider: Marine Dumont Attending physician on admission: Marine Dumont Condition: Stable Hospitalist MIPS Heart Failure (Exclusion) Patient has history of Heart Transplant or Left Ventricular Assistive Device?: No IF YES, STOP HERE Heart Failure (Qualifier) Patient has current or prior documentation of LVEF less than or equal to 40%, or mod/servere depressed LVSF?: No IF NO, STOP HERE
[2024-12-17 14:03] VITALS: PULSE 81; RESP 20; O2SAT 99
[2024-12-17 14:14] VITALS: PULSE 85; RESP 20
[2024-12-17] MEDS: oxyCODONE HCL (*CRX) 5 MG TAB IR PO (14:20)
== END 2024-12-17 15:25 | DRG 871 ==
LOC: ANHED 21:23 → ANHIMU 12-04 00:21 → ANH2MED 12-14 16:01
PROVIDERS: Family Medicine; Internal Medicine; Internal Medicine Nephrology; Nurse Practitioner; Student in an Organized Health Care Education/Training Program; Surgery; Admitting Provider General Practice; Emergency Provider Emergency Medicine; Visit Provider General Practice
PROC: 0JH63XZ Insertion of Tunneled Vascular Access Device into Chest Subcutaneous Tissue and Fascia, Percutaneous Approach (ICD-10-PCS; CPT 36908; principal; 2024-12-07 15:30)
DX: A41.9 Sepsis, unspecified organism (principal); G93.41 Metabolic encephalopathy; J18.8 Other pneumonia, unspecified organism; J96.01 Acute respiratory failure with hypoxia; N18.6 End stage renal disease; J69.0 Pneumonitis due to inhalation of food and vomit; N17.9 Acute kidney failure, unspecified; I12.0 Hypertensive chronic kidney disease with stage 5 chronic kidney disease or end stage renal disease; I82.611 Acute embolism and thrombosis of superficial veins of right upper extremity; I82.612 Acute embolism and thrombosis of superficial veins of left upper extremity; N20.2 Calculus of kidney with calculus of ureter; I25.10 Atherosclerotic heart disease of native coronary artery without angina pectoris; E11.22 Type 2 diabetes mellitus with diabetic chronic kidney disease; N18.9 Chronic kidney disease, unspecified; N40.0 Benign prostatic hyperplasia without lower urinary tract symptoms; J44.9 Chronic obstructive pulmonary disease, unspecified; R79.89 Other specified abnormal findings of blood chemistry; R29.810 Facial weakness; G47.33 Obstructive sleep apnea (adult) (pediatric); F17.210 Nicotine dependence, cigarettes, uncomplicated; Y95 Nosocomial condition; Z20.822 Contact with and (suspected) exposure to COVID-19; Z79.4 Long term (current) use of insulin; Z90.49 Acquired absence of other specified parts of digestive tract; Z79.82 Long term (current) use of aspirin; Z95.5 Presence of coronary angioplasty implant and graft; Z86.73 Personal history of transient ischemic attack (TIA), and cerebral infarction without residual deficits; Z99.2 Dependence on renal dialysis; Z96.0 Presence of urogenital implants
CPT/HCPCS: 36415; 36600; 70450; 70551; 71045; 71250; 74176; 76775; 77001; 80053; 80061; 80069; 80143; 80179; 80202; 80307; 81001; 81050; 82077; 82140; 82306; 82550; 82570; 82607; 82728; 82746; 82805; 82948; 83036; 83540; 83550; 83605; 83690; 83735; 83880; 84100; 84145; 84146; 84156; 84300; 84439; 84443; 84481; 84484; 84540; 85018; 85025; 85027; 85055; 85610; 85730; 85999; 86140; 86704; 86706; 86850; 86900; 86901; 87040; 87086; 87340; 87637; 87641; 92526; 92610; 93005; 93970; 94640; 95816; 96361; 96365; 96366; 96367; 99285; J0690; A9270; C1750; C1751; G0257; J0692; J1171; J1644; J1815; J2004; J2250; J2270; J2405; J2543; J2704; J3010; J3373; J3475; J7030; J7040; J7042; J7060; P9047; Q5105